=== PATIENT | female | born 1955 | race Caucasian/White ===

== ENCOUNTER 2023-05-18 01:06 | Emergency (ER) | payer MEDICARE, MEDICAID, SELFPAY ==
[2023-05-18 01:07] VITALS: BP 119/39; PULSE 57; RESP 16; TEMP 36.6; O2SAT 99; BMI 37.7
--- NOTE | 2023-05-18 01:13 | ECG_ITS ---
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
--- NOTE | 2023-05-18 01:14 | XR_ITS ---
The [address] [address] Patient Name: CASTILLO GRAHAM MRN: [id number] date: 1955 Sex: F Assigned Patient Location: ER Current Patient Location: ED.MAIN Accession/Order Number: [id number] Exam Date: 05/18/2023 01:22 Report Date: 05/18/2023 01:43 At the request of: KAREN KEY Procedure: XR chest 1V EXAM: XR chest 1V HISTORY: weakness COMPARISON: None. TECHNIQUE: None. FINDINGS: The heart, mediastinum and pulmonary vascularity are within normal limits. There is mild bibasilar atelectasis or less likely early infiltrate. Small left effusion cannot be excluded. The upper lungs are clear. XR/XR chest 1V IMPRESSION: Mild bibasilar atelectasis or less likely infiltrate. Small left effusion cannot be excluded. Lungs appear otherwise clear. Electronically authenticated by: LIDIA RIOS Date: 05/18/2023 01:43
--- NOTE | 2023-05-18 01:20 | ED.WEAKNESS1 ---
HPI - Weakness General Chief complaint: Weakness Stated complaint: general weakness Time Seen by Provider: 05/18/23 01:07 Source: patient Mode of arrival: ambulance History of Present Illness HPI Narrative: Patient is coming to us with chronic history of generalized weakness she mentioned that the weakness is all over her body but not limited to one side and she just feels tired. She had a history of chronic anemia and she was wondering her blood level if it is low or not The patient denies any abdominal pain no chest pain no nausea no vomiting no other concerns but it was noted that the patient was very sleepy and she admitted that she been taking her Percocet and her muscle relaxant at night Tonight the patient was trying to get out of bed and she felt dizzy and that why she was brought to us by the EMS Related Data Home Medications Medication Instructions Recorded Confirmed Unobtainable 05/18/23 05/18/23 Allergies Allergy/AdvReac Type Severity Reaction Status Date / Time aspirin Allergy Unknown Verified 05/18/23 01:40 furosemide [From Lasix] Allergy Unknown Verified 05/18/23 01:40 latex Allergy Unknown Verified 05/18/23 01:40 nabumetone Allergy Unknown Verified 05/18/23 01:40 Penicillins Allergy Unknown Verified 05/18/23 01:40 Sulfa (Sulfonamide Allergy Unknown Verified 05/18/23 01:40 Antibiotics) adhesive Allergy Unknown Uncoded 05/18/23 01:40 Review of Systems ROS Status of ROS 10 or more systems reviewed and unremarkable except as noted in history and below PFSH PFSH Social History Smoking status: Never smoker Exam Narrative Exam Narrative: Nurses notes and vital signs reviewed and patient is not hypoxic. General: Well-appearing and in no apparent distress. Skin: Warm, dry, no pallor noted. No rash. Head: Normocephalic, atraumatic. Neck: Supple, non-tender. Eye: Pupils pinpoint , round and EOMI. No scleral icterus. Ears, Nose, Mouth, and Throat: TM are clear, no nasal mucosal hypertrophy. Oral mucosa is moist, no posterior oropharynx erythema, uvula is mid-line Cardiovascular: Regular Rate and Rhythm without murmur, gallop or rub. Respiratory: No accessory muscle use or respiratory distress. Lungs are clear to auscultation, no wheezing, rales or rhonchi Chest Wall: no tenderness Back: No midline thoracic or lumbar vertebral tenderness. No CVA tenderness Musculoskeletal: normal ROM, no calf or popliteal tenderness, no lower extremity edema/swelling GI: Abdomen is soft, non-distended. Normal bowel sounds. No masses appreciated. No tenderness to palpation. No rebound, guarding, or rigidity noted. Neurological: A&O x4. No cranial nerve dysfunction observed. No truncal ataxia. Moves all extremities. Sensation intact. Psychiatric: Cooperative and very sleepy Normal mood and affect. Constitutional Vital Signs, click to edit/add: Last Vital Signs Temp 97.9 F 05/18/23 01:07 Pulse 57 L 05/18/23 01:07 Resp 16 05/18/23 01:07 BP 119/39 L 05/18/23 01:07 Pulse Ox 99 05/18/23 01:07 O2 Del Method Room Air 05/18/23 01:07 Course Vital Signs Vital signs: Vital Signs Temperature 97.9 F 05/18/23 01:07 Pulse Rate 57 L 05/18/23 01:07 Respiratory Rate 16 05/18/23 01:07 Blood Pressure 119/39 L 05/18/23 01:07 Pulse Oximetry 99 05/18/23 01:07 Oxygen Delivery Method Room Air 05/18/23 01:07 Temperature 97.9 F 05/18/23 01:07 Pulse Rate 57 L 05/18/23 01:07 Respiratory Rate 16 05/18/23 01:07 Blood Pressure 119/39 L 05/18/23 01:07 Pulse Oximetry 99 05/18/23 01:07 Oxygen Delivery Method Room Air 05/18/23 01:07 MDM - Weakness MDM Narrative Medical decision making narrative: The patient EKG shows sinus bradycardia heart rate was [address] elevation or depression there was no heart block The patient CBC shows hemoglobin of 10 CBC and chemistry showed no acute significant pathology there was some chronic kidney injury which the patient seem to have history of it The patient chest x-ray showed no acute significant pathology she was not coming to us with any difficulty breathing coughing or any fever and her presentation today is concerning mostly for drug side effect which is mostly taking her muscle relaxant with her Percocet The patient instructed about making sure that she only take 1 of those medication at night specifically after 5 PM she also was instructed about monitoring her symptoms she is to wear her nasal cannula oxygen at night and also be cautious when standing up The patient is to follow up with primary care physician in next 2-3 days or to return to the emergency department should any of the signs or symptoms worsen or new symptoms develop. The patient agrees with the following Diagnosis and Treatment plan and the patient will be discharged home. Lab Data Labs: Lab Results 05/18/23 Range/Units 01:13 WBC 11.3 H (4.0-11.0) 10^3/uL RBC 3.89 L (4.20-5.40) 10^6/uL Hgb 10.2 L (12.0-16.0) g/dL Hct 32.2 L (36.0-48.0) % MCV 82.8 (81.0-99.0) fL MCH 26.2 L (26.7-34.0) pg MCHC 31.7 (29.9-35.2) g/dL RDW 15.0 (11.0-15.0) % Plt Count 303 (150-450) 10^3/uL MPV 10.2 (9.5-13.5) fL Neut % (Auto) 71.2 (43.0-75.0) % Lymph % (Auto) 14.0 L (20.5-60.0) % Russell % (Auto) 9.1 (1.7-12.0) % Eos % (Auto) 4.1 (0.9-7.0) % Baso % (Auto) 1.2 (0.2-2.0) % Neut # (Auto) 8.0 H (1.4-6.5) 10^3/uL Lymph # (Auto) 1.6 (1.2-3.8) 10^3/uL Russell # (Auto) 1.0 H (0.3-0.8) 10^3/uL Eos # (Auto) 0.5 (0.0-0.7) 10^3/uL Baso # (Auto) 0.1 (0.0-0.1) 10^3/uL Abs Immat Gran (auto) 0.04 H (0.00-0.03) 10^3/uL Imm/Tot Granulo (auto) 0.4 (0.0-0.5) % PT 9.8 (9.0-11.6) sec INR <0.93 Sodium 138 (136-145) mmol/L Potassium 3.8 (3.5-5.1) mmol/L Chloride 103 (98-107) mmol/L Carbon Dioxide 23.9 (21.0-32.0) mmol/L Anion Gap 14.9 BUN 17.0 (7.0-18.0) mg/dL Creatinine 1.29 H (0.55-1.02) mg/dL Est GFR ( Amer) 50 L (>=60) Est GFR (Non-Af Amer) 41 L (>=60) BUN/Creatinine Ratio 13.2 Glucose 150 H (74-106) mg/dL Calcium 8.9 (8.5-10.1) mg/dL Magnesium 2.0 (1.8-2.4) mg/dL Total Bilirubin 0.3 (0.2-1.0) mg/dL AST 15 (15-37) U/L ALT <6 L (14-59) U/L Alkaline Phosphatase 80 (46-116) U/L Troponin I High Sens 10.9 (4.0-51.3) pg/mL Total Protein 7.0 (6.4-8.2) g/dL Albumin 3.1 L (3.4-5.0) g/dL Globulin 3.9 g/dL Albumin/Globulin Ratio 0.8 Discharge Plan Discharge Chief Complaint: Weakness Clinical Impression: Drug side effects Patient Disposition: Home, Self-Care Time of Disposition Decision: 02:04 Condition: Good Prescriptions / Home Meds: No Action Unobtainable Instructions: Narcotic Safety (ED) Stand Alone Forms: Portal Instructions Referrals: PETER ZHOU DO [Primary Care Provider] - 1 week
[2023-05-18 01:21] LABS: Basophils Absolute Auto 0.1 10^3/uL (0.0-0.1); Basophils Percent Auto 1.2 % (0.2-2.0); Eosinophils Absolute Auto 0.5 10^3/uL (0.0-0.7); Eosinophils Percent Auto 4.1 % (0.9-7.0); Hematocrit 32.2 % (36.0-48.0); Hemoglobin 10.2 g/dL (12.0-16.0); Immature Granulocytes Abs Auto 0.04 10^3/uL (0.00-0.03); Immature Granulocytes Pct Auto 0.4 % (0.0-0.5); Lymphocytes Absolute Auto 1.6 10^3/uL (1.2-3.8); Mean Corpuscular HGB Conc 31.7 g/dL (29.9-35.2); Mean Corpuscular Hemoglobin 26.2 pg (26.7-34.0); Mean Corpuscular Volume 82.8 fL (81.0-99.0); Mean Platelet Volume 10.2 fL (9.5-13.5); Monocytes Percent Auto 9.1 % (1.7-12.0); Neutrophils Percent Auto 71.2 % (43.0-75.0); Platelet Count 303 10^3/uL (150-450); Red Blood Count 3.89 10^6/uL (4.20-5.40); White Blood Count 11.3 10^3/uL (4.0-11.0)
[2023-05-18 01:34] LABS: Prothrombin Time 9.8 sec (9.0-11.6)
[2023-05-18 01:35] LABS: INR <0.93
[2023-05-18 01:36] LABS: Alanine Aminotransferase <6 U/L (14-59); Albumin Globulin Ratio 0.8; Albumin Level 3.1 g/dL (3.4-5.0); Alkaline Phosphatase 80 U/L (46-116); Anion Gap 14.9; Aspartate Amino Transferase 15 U/L (15-37); BUN Creatinine Ratio 13.2; Bilirubin Total 0.3 mg/dL (0.2-1.0); Calcium 8.9 mg/dL (8.5-10.1); Carbon Dioxide 23.9 mmol/L (21.0-32.0); Chloride 103 mmol/L (98-107); Estimated GFR (African America 50 (>=60); Estimated GFR (Non-African Ame 41 (>=60); Globulin 3.9 g/dL; Glucose 150 mg/dL (74-106); Potassium 3.8 mmol/L (3.5-5.1); Sodium 138 mmol/L (136-145)
[2023-05-18 01:41] LABS: Troponin I High Sensitivity 10.9 pg/mL (4.0-51.3)
== END 2023-05-18 02:23 | disposition home or self-care (01) ==
PROVIDERS: Emergency Provider Emergency Medicine; PCP Family Medicine
DX: R53.1 Weakness (principal); T50.995A Adverse effect of other drugs, medicaments and biological substances, initial encounter
CPT/HCPCS: 36415; 71045; 80053; 81003; 83735; 84484; 85025; 85610; 93005; 99285

== ENCOUNTER 2023-05-22 17:52 | Emergency (ER) | payer MEDICARE, MEDICAID, SELFPAY ==
[2023-05-22 18:02] VITALS: BP 143/106; PULSE 108; RESP 14; TEMP 36.6; O2SAT 98; BMI 37.7
[2023-05-22 18:13] LABS: Glucometer 131 mg/dL (74-106)
--- NOTE | 2023-05-22 19:35 | ED.EXTPRO1 ---
HPI - Extremity Problem General Chief complaint: Weakness Stated complaint: ALLERGIC REACTION TO MEDS Time Seen by Provider: 05/22/23 19:24 Source: patient Mode of arrival: Wheelchair Limitations: no limitations History of Present Illness HPI Narrative: patient states she was seen by her orthopedic surgeon 03/2023 for infected left knee joint. States knee replacement 10/09. states she had surgery and per her description the knee was cleaned and she was started on IV antibiotics via PIC line. Antibiotics were switched to Cipro 05/07/23. Since she started taking cipro she has noticed loss of appetite, myalgia. Did contact her surgeon and was advised to hold cipro over the weekend but advised her to come to the ER for evaluation. She denies fever or nausea. States whatever she tries to eat or drink does not taste good. She has left knee pain but similar pain to what she has been experiencing and has not worsened. MD Complaint: Reports extremity pain Onset (ago): week(s) Related Data Home Medications Medication Instructions Recorded Confirmed Unobtainable 05/18/23 05/18/23 Allergies Allergy/AdvReac Type Severity Reaction Status Date / Time aspirin Allergy Unknown Verified 05/22/23 18:02 furosemide [From Lasix] Allergy Unknown Verified 05/22/23 18:02 latex Allergy Unknown Verified 05/22/23 18:02 nabumetone Allergy Unknown Verified 05/22/23 18:02 Penicillins Allergy Unknown Verified 05/22/23 18:02 Sulfa (Sulfonamide Allergy Unknown Verified 05/22/23 18:02 Antibiotics) adhesive Allergy Unknown Uncoded 05/22/23 18:02 Review of Systems ROS Status of ROS 10 or more systems reviewed and unremarkable except as noted in history and below PFSH PFS Social History Smoking status: Never smoker Exam Constitutional Vital Signs, click to edit/add: Last Vital Signs Temp 98 F 05/22/23 18:02 Pulse 108 H 05/22/23 18:02 Resp 14 05/22/23 18:02 BP 143/106 H 05/22/23 18:02 Pulse Ox 98 05/22/23 18:02 O2 Del Method Room Air 05/22/23 18:02 Common normals: no apparent distress, oriented x3, healthy appearing, alert and well nourished Eye Common normals: EOMs intact bilaterally, conjunctivae normal and no scleral icterus Chest Common normals: inspection of chest normal, palpation of chest normal and inspection of breasts normal Cardio Common normals: regular rate, regular rhythm, S1 normal heart sound, S2 normal heart sound and no murmurs GI Common normals: Normal to inspection, nondistended, normoactive bowel sounds present, soft to palpation and non-tender Extremity Other: left knee is not warm or erythematous. mild tenderness. Neuro Common normals: oriented x3, CN's II-XII intact bilaterally, moves all extremities and no focal motor deficits Psych Appearance: grossly normal Course Vital Signs Vital signs: Vital Signs Temperature 98 F 05/22/23 18:02 Pulse Rate 108 H 05/22/23 18:02 Respiratory Rate 14 05/22/23 18:02 Blood Pressure 143/106 H 05/22/23 18:02 Pulse Oximetry 98 05/22/23 18:02 Oxygen Delivery Method Room Air 05/22/23 18:02 Temperature 98 F 05/22/23 18:02 Pulse Rate 108 H 05/22/23 18:02 Respiratory Rate 14 05/22/23 18:02 Blood Pressure 143/106 H 05/22/23 18:02 Pulse Oximetry 98 05/22/23 18:02 Oxygen Delivery Method Room Air 05/22/23 18:02 MDM - Extremity (Nontraumatic) MDM Narrative Medical decision making narrative: patient presents with myalgias and loss of appetite since starting cipro. Labs demonstrate dehydration. He was hydrated. Also has elevated inflammatory markers. She is on Cipro for history of infection left knee. Left knee on exam appears normal at this time. No warmth or erythema. Patient advised to d/c cipro for now. She will call her surgeon in 1 day to see what different antibiotic is recommended Lab Data Labs: Lab Results 05/22/23 05/22/23 05/22/23 Range/Units 18:10 20:20 20:22 WBC 8.2 (4.0-11.0) 10^3/uL RBC 4.20 (4.20-5.40) 10^6/uL Hgb 11.2 L (12.0-16.0) g/dL Hct 35.0 L (36.0-48.0) % MCV 83.3 (81.0-99.0) fL MCH 26.7 (26.7-34.0) pg MCHC 32.0 (29.9-35.2) g/dL RDW 15.2 H (11.0-15.0) % Plt Count 308 (150-450) 10^3/uL MPV 9.9 (9.5-13.5) fL Neut % (Auto) 73.2 (43.0-75.0) % Lymph % (Auto) 12.9 L (20.5-60.0) % [place] % (Auto) 8.6 (1.7-12.0) % Eos % (Auto) 3.8 (0.9-7.0) % Baso % (Auto) 1.1 (0.2-2.0) % Neut # (Auto) 6.0 (1.4-6.5) 10^3/uL Lymph # (Auto) 1.1 L (1.2-3.8) 10^3/uL [place] # (Auto) 0.7 (0.3-0.8) 10^3/uL Eos # (Auto) 0.3 (0.0-0.7) 10^3/uL Baso # (Auto) 0.1 (0.0-0.1) 10^3/uL Abs Immat Gran (auto) 0.03 (0.00-0.03) 10^3/uL Imm/Tot Granulo (auto) 0.4 (0.0-0.5) % ESR 76 H (<=30) mm/hr Sodium 139 (136-145) mmol/L Potassium 3.9 (3.5-5.1) mmol/L Chloride 104 (98-107) mmol/L Carbon Dioxide 26.3 (21.0-32.0) mmol/L Anion Gap 12.6 BUN 15.0 (7.0-18.0) mg/dL Creatinine 1.34 H (0.55-1.02) mg/dL Est GFR ( Amer) 48 L (>=60) Est GFR (Non-Af Amer) 39 L (>=60) BUN/Creatinine Ratio 11.2 Glucose 97 (74-106) mg/dL Calcium 8.9 (8.5-10.1) mg/dL Total Bilirubin 0.4 (0.2-1.0) mg/dL AST 18 (15-37) U/L ALT 15 (14-59) U/L Alkaline Phosphatase 84 (46-116) U/L C-Reactive Protein 4.6 H (<=1.0) mg/dL Total Protein 7.6 (6.4-8.2) g/dL Albumin 3.4 (3.4-5.0) g/dL Globulin 4.2 g/dL Albumin/Globulin Ratio 0.8 Urine Color (YELLOW) Urine Clarity (CLEAR) Urine pH (5.0-9.0) Ur Specific [place] (1.005-1.025) Urine Protein (NEG/TRACE) mg/dL Urine Glucose (UA) (NEGATIVE) mg/dL Urine Ketones (NEGATIVE) mg/dL Urine Occult Blood (NEGATIVE) Urine Nitrite (NEGATIVE) Urine Bilirubin (NEGATIVE) Urine Urobilinogen (0.2-1.0) EU/dL Ur Leukocyte Esterase (NEGATIVE) POC Glucose 131 H (74-106) mg/dL 05/22/23 Range/Units 23:59 WBC (4.0-11.0) 10^3/uL RBC (4.20-5.40) 10^6/uL Hgb (12.0-16.0) g/dL Hct (36.0-48.0) % MCV (81.0-99.0) fL MCH (26.7-34.0) pg MCHC (29.9-35.2) g/dL RDW (11.0-15.0) % Plt Count (150-450) 10^3/uL MPV (9.5-13.5) fL Neut % (Auto) (43.0-75.0) % Lymph % (Auto) (20.5-60.0) % [place] % (Auto) (1.7-12.0) % Eos % (Auto) (0.9-7.0) % Baso % (Auto) (0.2-2.0) % Neut # (Auto) (1.4-6.5) 10^3/uL Lymph # (Auto) (1.2-3.8) 10^3/uL [place] # (Auto) (0.3-0.8) 10^3/uL Eos # (Auto) (0.0-0.7) 10^3/uL Baso # (Auto) (0.0-0.1) 10^3/uL Abs Immat Gran (auto) (0.00-0.03) 10^3/uL Imm/Tot Granulo (auto) (0.0-0.5) % ESR (<=30) mm/hr Sodium (136-145) mmol/L Potassium (3.5-5.1) mmol/L Chloride (98-107) mmol/L Carbon Dioxide (21.0-32.0) mmol/L Anion Gap BUN (7.0-18.0) mg/dL Creatinine (0.55-1.02) mg/dL Est GFR ( Amer) (>=60) Est GFR (Non-Af Amer) (>=60) BUN/Creatinine Ratio Glucose (74-106) mg/dL Calcium (8.5-10.1) mg/dL Total Bilirubin (0.2-1.0) mg/dL AST (15-37) U/L ALT (14-59) U/L Alkaline Phosphatase (46-116) U/L C-Reactive Protein (<=1.0) mg/dL Total Protein (6.4-8.2) g/dL Albumin (3.4-5.0) g/dL Globulin g/dL Albumin/Globulin Ratio Urine Color Yellow (YELLOW) Urine Clarity Clear (CLEAR) Urine pH 5.5 (5.0-9.0) Ur Specific [place] 1.025 (1.005-1.025) Urine Protein Negative (NEG/TRACE) mg/dL Urine Glucose (UA) Negative (NEGATIVE) mg/dL Urine Ketones Negative (NEGATIVE) mg/dL Urine Occult Blood Negative (NEGATIVE) Urine Nitrite Negative (NEGATIVE) Urine Bilirubin Negative (NEGATIVE) Urine Urobilinogen 0.2 (0.2-1.0) EU/dL Ur Leukocyte Esterase Negative (NEGATIVE) POC Glucose (74-106) mg/dL Discharge Plan Discharge Chief Complaint: Weakness Clinical Impression: Arthralgia, Adverse drug reaction, Dehydration Patient Disposition: Home, Self-Care Prescriptions / Home Meds: No Action Unobtainable Instructions: Dehydration (ED), Adverse Drug Reaction (ED) Additional Instructions: call your surgeon thursday for a new antibiotic Stand Alone Forms: Portal Instructions Referrals: PETER ZHOU DO [Primary Care Provider] - 1 week
[2023-05-22] MEDS: 0.9 % SODIUM CHLORIDE 1,000 ML 999 ML IV (20:21)
[2023-05-22 20:32] LABS: Basophils Absolute Auto 0.1 10^3/uL (0.0-0.1); Basophils Percent Auto 1.1 % (0.2-2.0); Eosinophils Absolute Auto 0.3 10^3/uL (0.0-0.7); Eosinophils Percent Auto 3.8 % (0.9-7.0); Hemoglobin 11.2 g/dL (12.0-16.0); Immature Granulocytes Abs Auto 0.03 10^3/uL (0.00-0.03); Immature Granulocytes Pct Auto 0.4 % (0.0-0.5); Lymphocytes Absolute Auto 1.1 10^3/uL (1.2-3.8); Lymphocytes Percent Auto 12.9 % (20.5-60.0); Mean Corpuscular Hemoglobin 26.7 pg (26.7-34.0); Mean Corpuscular Volume 83.3 fL (81.0-99.0); Mean Platelet Volume 9.9 fL (9.5-13.5); Monocytes Absolute Auto 0.7 10^3/uL (0.3-0.8); Monocytes Percent Auto 8.6 % (1.7-12.0); Neutrophils Percent Auto 73.2 % (43.0-75.0); Platelet Count 308 10^3/uL (150-450); Red Cell Distribution Width 15.2 % (11.0-15.0); White Blood Count 8.2 10^3/uL (4.0-11.0)
[2023-05-22 20:50] LABS: Alanine Aminotransferase 15 U/L (14-59); Albumin Globulin Ratio 0.8; Albumin Level 3.4 g/dL (3.4-5.0); Alkaline Phosphatase 84 U/L (46-116); Anion Gap 12.6; Aspartate Amino Transferase 18 U/L (15-37); BUN Creatinine Ratio 11.2; Bilirubin Total 0.4 mg/dL (0.2-1.0); C Reactive Protein 4.6 mg/dL (<=1.0); Calcium 8.9 mg/dL (8.5-10.1); Carbon Dioxide 26.3 mmol/L (21.0-32.0); Chloride 104 mmol/L (98-107); Estimated GFR (African America 48 (>=60); Estimated GFR (Non-African Ame 39 (>=60); Globulin 4.2 g/dL; Glucose 97 mg/dL (74-106); Potassium 3.9 mmol/L (3.5-5.1); Sodium 139 mmol/L (136-145); Total Protein 7.6 g/dL (6.4-8.2)
[2023-05-22 20:55] LABS: Erythrocyte Sedimentation Rate 76 mm/hr (<=30)
[2023-05-22] MEDS: MORPHINE SULFATE 4 MG/ML VIAL IV (22:26)
[2023-05-23 00:44] LABS: Bilirubin Urine NEGATIVE (NEGATIVE); Blood Urine NEGATIVE (NEGATIVE); Clarity Urine CLEAR (CLEAR); Color Urine YELLOW (YELLOW); Glucose Urine UA NEGATIVE (NEGATIVE); Ketones Urine NEGATIVE (NEGATIVE); Leukocyte Esterase Urine NEGATIVE (NEGATIVE); Nitrite Urine NEGATIVE (NEGATIVE); Protein Urine NEGATIVE (NEG/TRACE); Specific Gravity Urine 1.025 (1.005-1.025); Urine Microscopic Indicated NO; Urobilinogen Urine 0.2 EU/dL (0.2-1.0); pH Urine 5.5 (5.0-9.0)
== END 2023-05-23 01:33 | disposition home or self-care (01) ==
PROVIDERS: Emergency Medicine; Emergency Provider Internal Medicine; PCP Family Medicine
DX: E86.0 Dehydration (principal); M25.562 Pain in left knee; T36.8X5A Adverse effect of other systemic antibiotics, initial encounter; Z96.652 Presence of left artificial knee joint
CPT/HCPCS: 36415; 36416; 80053; 81003; 82948; 85025; 85652; 86140; 96361; 96374; 99284

== ENCOUNTER 2023-06-01 13:30 | Emergency (ER) | payer MEDICARE, MEDICAID, SELFPAY ==
[2023-06-01 13:40] VITALS: BP 130/95; PULSE 82; RESP 16; TEMP 36.8; O2SAT 99; BMI 36.8
--- NOTE | 2023-06-01 13:55 | ED_ITS ---
Documented by User: Bessiedoug Walteron 06/01/23 16:51 HPI - General Adult General Chief complaint: Extremity Injury, Lower Stated complaint: LOWER EXTREMITY PAIN RIGHT LEG Time Seen by Provider: 06/01/23 13:43 Source: patient Mode of arrival: Wheelchair Limitations: physical limitation History of Present Illness HPI narrative: 67 year old female presents to the ED with concern of a DVT to her right leg. She noticed an erythematous streak and discomfort to the right upper medial leg over the past few days. Also reports diarrhea, fatigue, decreased appetite s/p being started on Cipro last week for an infection to her left knee. Denies fever, chills, abd pain, urinary sx. Denies SOB, dizziness, CP. Rates her pain 2/10 at this time. She did call her surgeon today and was given a prescription for Cefdinir to replace the Cipro. Reports her loose stools started after she began taking a probiotic. Related Data Home Medications Medication Instructions Recorded Confirmed Unobtainable 05/18/23 05/18/23 Allergies Allergy/AdvReac Type Severity Reaction Status Date / Time aspirin Allergy Unknown Verified 06/01/23 13:46 furosemide [From Lasix] Allergy Unknown Verified 06/01/23 13:46 latex Allergy Unknown Verified 06/01/23 13:46 nabumetone Allergy Unknown Verified 06/01/23 13:46 Penicillins Allergy Unknown Verified 06/01/23 13:46 Sulfa (Sulfonamide Allergy Unknown Verified 06/01/23 13:46 Antibiotics) adhesive Allergy Unknown Uncoded 06/01/23 13:46 Review of Systems ROS Constitutional Denies: fever or chills Cardiovascular Denies: chest pain or palpitations Respiratory Denies: shortness of breath Gastrointestinal Reports: diarrhea; Denies: abdominal pain, nausea or vomiting Genitourinary Denies: painful urination, urinary frequency or urinary urgency Musculoskeletal Reports: extremity pain Integumentary/Breast Reports: redness; Denies: rash Neurological Denies: headache or dizziness PFSH PFSH Social History Smoking status: Never smoker Exam Constitutional Vital Signs, click to edit/add: Last Vital Signs Temp 98.3 F 06/01/23 13:40 Pulse 82 06/01/23 13:40 Resp 16 06/01/23 13:40 BP 130/95 H 06/01/23 13:40 Pulse Ox 99 06/01/23 13:40 O2 Del Method Room Air 06/01/23 13:40 HENMT Mouth: lip normal Chest Chest: symmetrical chest wall rise Respiratory Common normals: normal respiratory effort Effort & inspection: able to speak in complete sentences and symmetric chest movement Cardio Peripheral pulses: posterior tibial pulses present and dorsalis pedis pulses present GI Common normals: soft to palpation and non-tender Inspection: normal to inspection Extremity Right lower extremity: upper leg Right upper leg: inspection (Area of erythema to right medial upper leg. Area is tender. ) and other (No open wound or drainage to area. Varicose veins noted.) Neuro Common normals: oriented x3 Sensorium/orientation: awake and alert Course Vital Signs Vital signs: Vital Signs Temperature 98.3 F 06/01/23 13:40 Pulse Rate 82 06/01/23 13:40 Respiratory Rate 16 06/01/23 13:40 Blood Pressure 130/95 H 06/01/23 13:40 Pulse Oximetry 99 06/01/23 13:40 Oxygen Delivery Method Room Air 06/01/23 13:40 Temperature 98.3 F 06/01/23 13:40 Pulse Rate 82 06/01/23 13:40 Respiratory Rate 16 06/01/23 13:40 Blood Pressure 130/95 H 06/01/23 13:40 Pulse Oximetry 99 06/01/23 13:40 Oxygen Delivery Method Room Air 06/01/23 13:40 Medical Decision Making MDM Narrative Medical decision making narrative: Venous Doppler of the RLE was negative for DVT. Her creatinine improved from the previous visit. WBC count and BUN were not elevated. She was unable to provide a stool specimen here in the ED. She was encouraged to follow up with her pcp for a recheck, further evaluation and treatment. Return precautions were discussed. Medical Records Medical records reviewed: Yes I reviewed the patient's medical records Lab Data Lab results reviewed: Yes I reviewed the patient's lab results Labs: Lab Results 06/01/23 06/01/23 Range/Units 14:00 15:45 WBC 9.7 (4.0-11.0) 10^3/uL RBC 4.48 (4.20-5.40) 10^6/uL Hgb 11.6 L (12.0-16.0) g/dL Hct 37.4 (36.0-48.0) % MCV 83.5 (81.0-99.0) fL MCH 25.9 L (26.7-34.0) pg MCHC 31.0 (29.9-35.2) g/dL RDW 14.9 (11.0-15.0) % Plt Count 343 (150-450) 10^3/uL MPV 10.3 (9.5-13.5) fL Neut % (Auto) 67.1 (43.0-75.0) % Lymph % (Auto) 18.0 L (20.5-60.0) % [place] % (Auto) 9.6 (1.7-12.0) % Eos % (Auto) 3.5 (0.9-7.0) % Baso % (Auto) 1.3 (0.2-2.0) % Neut # (Auto) 6.5 (1.4-6.5) 10^3/uL Lymph # (Auto) 1.8 (1.2-3.8) 10^3/uL [place] # (Auto) 0.9 H (0.3-0.8) 10^3/uL Eos # (Auto) 0.3 (0.0-0.7) 10^3/uL Baso # (Auto) 0.1 (0.0-0.1) 10^3/uL Abs Immat Gran (auto) 0.05 H (0.00-0.03) 10^3/uL Imm/Tot Granulo (auto) 0.5 (0.0-0.5) % Sodium 137 (136-145) mmol/L Potassium 3.5 (3.5-5.1) mmol/L Chloride 101 (98-107) mmol/L Carbon Dioxide 25.1 (21.0-32.0) mmol/L Anion Gap 14.4 BUN 15.0 (7.0-18.0) mg/dL Creatinine 1.14 H (0.55-1.02) mg/dL Est GFR ( Amer) 58 L (>=60) Est GFR (Non-Af Amer) 48 L (>=60) BUN/Creatinine Ratio 13.2 Glucose 99 (74-106) mg/dL Calcium 8.9 (8.5-10.1) mg/dL SARS-CoV-2 (PCR) Negative (NEGATIVE) Imaging Data Venous US: Attestation: I have reviewed the pertinent imaging results. Radiologist's impression: Procedure: US venous doppler LE RT Right EXAM: US venous doppler LE RT HISTORY: Right leg swelling, discomfort COMPARISON: None. TECHNIQUE: Evaluation of the deep veins of the right lower extremity was performed utilizing B-mode, color flow and spectral analysis. FINDINGS: The visualized vessels comprising the deep venous systems from the common femoral vein through the calf veins demonstrate appropriate compressibility, spontaneous color Doppler flow, and augmentation of flow on spectral Doppler with distal compression. Additional findings: None. US/US venous doppler LE RT IMPRESSION: No sonographic evidence of deep venous thrombosis of the right lower extremity. Electronically authenticated by: MOISES REAL Date: 06/01/2023 14:50 Discharge Plan Discharge Chief Complaint: Extremity Injury, Lower Clinical Impression: Drug side effects, Diarrhea, Leg pain, right Patient Disposition: Home, Self-Care Time of Disposition Decision: 16:41 Condition: Good Mode of Transportation: Private Vehicle Prescriptions / Home Meds: No Action Unobtainable Instructions: Acute Diarrhea (ED), Adverse Drug Reaction (ED), Leg Pain (ED) Stand Alone Forms: Portal Instructions Referrals: PETER ZHOU DO [Primary Care Provider] - 1 week Discharge Date/Time: 06/01/23 16:47 Documented by User: Simona Arana MD 06/01/23 18:48 HPI - General Adult General Chief complaint: Extremity Injury, Lower Stated complaint: LOWER EXTREMITY PAIN RIGHT LEG Time Seen by Provider: 06/01/23 13:43 Related Data Home Medications Medication Instructions Recorded Confirmed Unobtainable 05/18/23 05/18/23 Allergies Allergy/AdvReac Type Severity Reaction Status Date / Time aspirin Allergy Unknown Verified 06/01/23 13:46 furosemide [From Lasix] Allergy Unknown Verified 06/01/23 13:46 latex Allergy Unknown Verified 06/01/23 13:46 nabumetone Allergy Unknown Verified 06/01/23 13:46 Penicillins Allergy Unknown Verified 06/01/23 13:46 Sulfa (Sulfonamide Allergy Unknown Verified 06/01/23 13:46 Antibiotics) adhesive Allergy Unknown Uncoded 06/01/23 13:46 PFSH PFSH Social History Smoking status: Never smoker Exam Constitutional Vital Signs, click to edit/add: Last Vital Signs Temp 98.3 F 06/01/23 13:40 Pulse 82 06/01/23 13:40 Resp 16 06/01/23 13:40 BP 130/95 H 06/01/23 13:40 Pulse Ox 99 06/01/23 13:40 O2 Del Method Room Air 06/01/23 13:40 Course Vital Signs Vital signs: Vital Signs Temperature 98.3 F 06/01/23 13:40 Pulse Rate 82 06/01/23 13:40 Respiratory Rate 16 06/01/23 13:40 Blood Pressure 130/95 H 06/01/23 13:40 Pulse Oximetry 99 06/01/23 13:40 Oxygen Delivery Method Room Air 06/01/23 13:40 Temperature 98.3 F 06/01/23 13:40 Pulse Rate 82 06/01/23 13:40 Respiratory Rate 16 06/01/23 13:40 Blood Pressure 130/95 H 06/01/23 13:40 Pulse Oximetry 99 06/01/23 13:40 Oxygen Delivery Method Room Air 06/01/23 13:40 Medical Decision Making MDM Narrative Medical decision making narrative: Venous Doppler of the RLE was negative for DVT. Her creatinine improved from the previous visit. WBC count and BUN were not elevated. She was unable to provide a stool specimen here in the ED. She was encouraged to follow up with her pcp for a recheck, further evaluation and treatment. Return precautions were discussed. Attending physician attestation I have reviewed the mid-level documentation, agree with the documentation, medical decision making and treatment plan as outlined by the mid-level provider. Lab Data Labs: Lab Results 06/01/23 06/01/23 Range/Units 14:00 15:45 WBC 9.7 (4.0-11.0) 10^3/uL RBC 4.48 (4.20-5.40) 10^6/uL Hgb 11.6 L (12.0-16.0) g/dL Hct 37.4 (36.0-48.0) % MCV 83.5 (81.0-99.0) fL MCH 25.9 L (26.7-34.0) pg MCHC 31.0 (29.9-35.2) g/dL RDW 14.9 (11.0-15.0) % Plt Count 343 (150-450) 10^3/uL MPV 10.3 (9.5-13.5) fL Neut % (Auto) 67.1 (43.0-75.0) % Lymph % (Auto) 18.0 L (20.5-60.0) % [place] % (Auto) 9.6 (1.7-12.0) % Eos % (Auto) 3.5 (0.9-7.0) % Baso % (Auto) 1.3 (0.2-2.0) % Neut # (Auto) 6.5 (1.4-6.5) 10^3/uL Lymph # (Auto) 1.8 (1.2-3.8) 10^3/uL [place] # (Auto) 0.9 H (0.3-0.8) 10^3/uL Eos # (Auto) 0.3 (0.0-0.7) 10^3/uL Baso # (Auto) 0.1 (0.0-0.1) 10^3/uL Abs Immat Gran (auto) 0.05 H (0.00-0.03) 10^3/uL Imm/Tot Granulo (auto) 0.5 (0.0-0.5) % Sodium 137 (136-145) mmol/L Potassium 3.5 (3.5-5.1) mmol/L Chloride 101 (98-107) mmol/L Carbon Dioxide 25.1 (21.0-32.0) mmol/L Anion Gap 14.4 BUN 15.0 (7.0-18.0) mg/dL Creatinine 1.14 H (0.55-1.02) mg/dL Est GFR ( Amer) 58 L (>=60) Est GFR (Non-Af Amer) 48 L (>=60) BUN/Creatinine Ratio 13.2 Glucose 99 (74-106) mg/dL Calcium 8.9 (8.5-10.1) mg/dL SARS-CoV-2 (PCR) Negative (NEGATIVE) Discharge Plan Discharge Chief Complaint: Extremity Injury, Lower Clinical Impression: Drug side effects, Diarrhea, Leg pain, right Patient Disposition: Home, Self-Care Time of Disposition Decision: 16:41 Condition: Good Mode of Transportation: Private Vehicle Prescriptions / Home Meds: No Action Unobtainable Instructions: Acute Diarrhea (ED), Adverse Drug Reaction (ED), Leg Pain (ED) Stand Alone Forms: Portal Instructions Referrals: PETER ZHOU DO [Primary Care Provider] - 1 week Discharge Date/Time: 06/01/23 16:47
--- NOTE | 2023-06-01 14:00 | US_ITS ---
The [address] [address] Patient Name: CASTILLO GRAHAM MRN: [id number] date: 1955 Sex: F Assigned Patient Location: ED.MAIN Current Patient Location: ER Accession/Order Number: [id number] Exam Date: 06/01/2023 14:05 Report Date: 06/01/2023 14:50 At the request of: ALAN PINEDA Procedure: US venous doppler LE RT Right EXAM: US venous doppler LE RT HISTORY: Right leg swelling, discomfort COMPARISON: None. TECHNIQUE: Evaluation of the deep veins of the right lower extremity was performed utilizing B-mode, color flow and spectral analysis. FINDINGS: The visualized vessels comprising the deep venous systems from the common femoral vein through the calf veins demonstrate appropriate compressibility, spontaneous color Doppler flow, and augmentation of flow on spectral Doppler with distal compression. Additional findings: None. US/US venous doppler LE RT IMPRESSION: No sonographic evidence of deep venous thrombosis of the right lower extremity. Electronically authenticated by: MOISES REAL Date: 06/01/2023 14:50
[2023-06-01 14:16] LABS: Anion Gap 14.4; BUN Creatinine Ratio 13.2; Calcium 8.9 mg/dL (8.5-10.1); Carbon Dioxide 25.1 mmol/L (21.0-32.0); Chloride 101 mmol/L (98-107); Estimated GFR (African America 58 (>=60); Estimated GFR (Non-African Ame 48 (>=60); Glucose 99 mg/dL (74-106); Potassium 3.5 mmol/L (3.5-5.1); Sodium 137 mmol/L (136-145)
[2023-06-01 14:27] LABS: Basophils Absolute Auto 0.1 10^3/uL (0.0-0.1); Basophils Percent Auto 1.3 % (0.2-2.0); Eosinophils Absolute Auto 0.3 10^3/uL (0.0-0.7); Eosinophils Percent Auto 3.5 % (0.9-7.0); Hematocrit 37.4 % (36.0-48.0); Hemoglobin 11.6 g/dL (12.0-16.0); Immature Granulocytes Abs Auto 0.05 10^3/uL (0.00-0.03); Immature Granulocytes Pct Auto 0.5 % (0.0-0.5); Lymphocytes Absolute Auto 1.8 10^3/uL (1.2-3.8); Mean Corpuscular Hemoglobin 25.9 pg (26.7-34.0); Mean Corpuscular Volume 83.5 fL (81.0-99.0); Mean Platelet Volume 10.3 fL (9.5-13.5); Monocytes Absolute Auto 0.9 10^3/uL (0.3-0.8); Monocytes Percent Auto 9.6 % (1.7-12.0); Neutrophils Absolute Auto 6.5 10^3/uL (1.4-6.5); Neutrophils Percent Auto 67.1 % (43.0-75.0); Platelet Count 343 10^3/uL (150-450); Red Blood Count 4.48 10^6/uL (4.20-5.40); Red Cell Distribution Width 14.9 % (11.0-15.0); White Blood Count 9.7 10^3/uL (4.0-11.0)
[2023-06-01 16:31] LABS: SARS-CoV-2 Ag NEGATIVE (NEGATIVE)
[2023-06-02 15:16] LABS: SARS-CoV-2 NAA NOT DETECTED (NOT DETECTE)
== END 2023-06-01 16:47 | disposition home or self-care (01) ==
PROVIDERS: Nurse Practitioner Family; Emergency Provider Emergency Medicine; PCP Family Medicine
DX: M79.604 Pain in right leg (principal); R19.7 Diarrhea, unspecified; T36.8X5A Adverse effect of other systemic antibiotics, initial encounter; Z20.822 Contact with and (suspected) exposure to COVID-19
CPT/HCPCS: 36415; 80048; 85025; 87493; 87507; 87635; 87811; 93971; 99284

== ENCOUNTER 2023-07-08 09:15 | Outpatient (OUT) | payer MEDICARE, MEDICAID, SELFPAY ==
[2023-07-08 09:41] LABS: Basophils Absolute Auto 0.1 10^3/uL (0.0-0.1); Basophils Percent Auto 1.4 % (0.2-2.0); Eosinophils Absolute Auto 0.2 10^3/uL (0.0-0.7); Eosinophils Percent Auto 3.2 % (0.9-7.0); Hematocrit 35.8 % (36.0-48.0); Hemoglobin 10.6 g/dL (12.0-16.0); Immature Granulocytes Abs Auto 0.02 10^3/uL (0.00-0.03); Immature Granulocytes Pct Auto 0.3 % (0.0-0.5); Lymphocytes Absolute Auto 1.7 10^3/uL (1.2-3.8); Lymphocytes Percent Auto 24.4 % (20.5-60.0); Mean Corpuscular HGB Conc 29.6 g/dL (29.9-35.2); Mean Corpuscular Hemoglobin 25.9 pg (26.7-34.0); Mean Corpuscular Volume 87.3 fL (81.0-99.0); Mean Platelet Volume 10.3 fL (9.5-13.5); Monocytes Absolute Auto 0.6 10^3/uL (0.3-0.8); Monocytes Percent Auto 8.7 % (1.7-12.0); Neutrophils Absolute Auto 4.3 10^3/uL (1.4-6.5); Platelet Count 339 10^3/uL (150-450); Red Cell Distribution Width 15.9 % (11.0-15.0)
[2023-07-08 09:57] LABS: Albumin Level 3.1 g/dL (3.4-5.0); Anion Gap 10.1; BUN Creatinine Ratio 12.5; C Reactive Protein 2.7 mg/dL (<=1.0); Carbon Dioxide 29.1 mmol/L (21.0-32.0); Chloride 103 mmol/L (98-107); Estimated GFR (African America >60 (>=60); Estimated GFR (Non-African Ame >60 (>=60); Glucose 97 mg/dL (74-106); Phosphorus 3.7 mg/dL (2.6-4.7); Potassium 3.2 mmol/L (3.5-5.1); Sodium 139 mmol/L (136-145)
[2023-07-08 10:05] LABS: Erythrocyte Sedimentation Rate 36 mm/hr (<=30)
== END 2023-07-08 09:16 | disposition home or self-care (01) ==
LOC: LAB 09:15
PROVIDERS: PCP Family Medicine
DX: T84.59XD Infection and inflammatory reaction due to other internal joint prosthesis, subsequent encounter (principal)
CPT/HCPCS: 36415; 80069; 85025; 85652; 86140

== ENCOUNTER 2023-07-09 13:51 | Outpatient (RCR) | payer MEDICARE, MEDICAID, SELFPAY | END 2023-10-18 09:00 | disposition home or self-care (01) | LOC: PT 13:51 | PROVIDERS: PCP Family Medicine | DX: M17.12 Unilateral primary osteoarthritis, left knee (principal); Z96.652 Presence of left artificial knee joint | CPT/HCPCS: 97110; 97112; 97140; 97163; 97530 ==

== ENCOUNTER 2023-09-09 13:07 | Outpatient (OUT) | payer MEDICARE, MEDICAID, SELFPAY ==
--- NOTE | 2023-09-09 13:22 | XR_ITS ---
[address] [address] Patient Name: CASTILLO GRAHAM MRN: [id number] date: 1955 Sex: F Assigned Patient Location: [facility] Current Patient Location: Accession/Order Number: [id number] Exam Date: 09/09/2023 13:58 Report Date: 09/10/2023 02:50 At the request of: PETER ZHOU Procedure: XR DEXA axial skeleton EXAMINATION: XR DEXA axial skeleton HISTORY: Menopause Z78.0 COMPARISON: DEXA bone densitometry 07/09/2020 TECHNIQUE: Dual-energy X-ray absorptiometry (DXA) was performed. FINDINGS: SPINE ANALYSIS: Average bone mineral density is 1.138 g/cm2. T-score (standard deviation relative to young adult mean): 0.5 . +1.8% change since prior study. HIP ANALYSIS: Lowest bone mineral density is within the right femoral trochanter, 0.691 g/cm2. T-score (standard deviation relative to young adult mean): -1.4 . -15.1% change since prior study. XR/XR DEXA axial skeleton IMPRESSION: [employer] Classification: Osteopenia - Moderate Fracture Risk Electronically authenticated by: NELIA TIJERINA Date: 09/10/2023 02:50
--- NOTE | 2023-09-09 13:22 | MM_ITS ---
Patient Name: CASTILLO GRAHAM MR#: [id number] : 1955 Exam Date: 09/09/2023 Ordering Doctor: DR PETER ZHOU D.O. RADIOLOGY REPORT PROCEDURE: MM TOMOSYNTHESIS SCREENING BI COMPARISON: MG MAMM SCREEN NYLA W CAD, 07/09/2020. MG MAMM SCREEN NYLA W CAD, 06/17/2019. MG MAMM SCREEN NYLA W CAD, 06/15/2018. INDICATIONS: Screening Calculator Name NCI Breast Cancer Risk Assessment Tool 5 Year Breast Cancer Risk 1.90% Lifetime Breast Cancer Risk 6.20% Personal Breast Cancer No Personal Ovarian Cancer No Treatments None Family Cancers None LOCATION: [facility] BREAST COMPOSITION: Almost entirely fatty. FINDINGS: DIAGNOSTIC CATEGORY 1--NEGATIVE. RIGHT BREAST: No significant suspicious finding. No significant change has occurred. LEFT BREAST: No significant suspicious finding. No significant change has occurred. RECOMMENDATIONS: ROUTINE MAMMOGRAM AND CLINICAL EVALUATION IN 12 MONTHS. PLEASE NOTE: A NORMAL MAMMOGRAM DOES NOT EXCLUDE THE POSSIBILITY OF BREAST CANCER. A CLINICALLY SUSPICIOUS PALPABLE LUMP SHOULD BE BIOPSIED. Dictated by: Don Esquivel M.D. on 09/15/2023 at 12:56 Approved by: Don Esquivel M.D. on 09/15/2023 at 12:58
== END 2023-09-09 13:08 | disposition home or self-care (01) ==
LOC: RAD 13:09
PROVIDERS: PCP Family Medicine; Visit Provider Family Medicine
DX: Z12.31 Encounter for screening mammogram for malignant neoplasm of breast (principal); Z78.0 Asymptomatic menopausal state; M85.80 Other specified disorders of bone density and structure, unspecified site
CPT/HCPCS: 77063; 77067; 77080

== ENCOUNTER 2023-09-16 14:15 | Outpatient (OUT) | payer MEDICARE, MEDICAID, SELFPAY ==
[2023-09-16 14:44] LABS: Hematocrit 37.4 % (36.0-48.0); Hemoglobin 11.6 g/dL (12.0-16.0); Mean Corpuscular Hemoglobin 26.8 pg (26.7-34.0); Mean Corpuscular Volume 86.4 fL (81.0-99.0); Mean Platelet Volume 9.8 fL (9.5-13.5); Platelet Count 306 10^3/uL (150-450); Red Blood Count 4.33 10^6/uL (4.20-5.40); Red Cell Distribution Width 14.8 % (11.0-15.0); White Blood Count 7.9 10^3/uL (4.0-11.0)
[2023-09-16 14:58] LABS: Bilirubin Urine NEGATIVE (NEGATIVE); Blood Urine NEGATIVE (NEGATIVE); Clarity Urine CLEAR (CLEAR); Color Urine YELLOW (YELLOW); Glucose Urine UA NEGATIVE (NEGATIVE); Ketones Urine NEGATIVE (NEGATIVE); Leukocyte Esterase Urine NEGATIVE (NEGATIVE); Nitrite Urine NEGATIVE (NEGATIVE); Protein Urine NEGATIVE (NEG/TRACE); Specific Gravity Urine 1.015 (1.005-1.025); Urobilinogen Urine 0.2 EU/dL (0.2-1.0)
[2023-09-16 15:02] LABS: Alanine Aminotransferase 13 U/L (14-59); Albumin Globulin Ratio 0.9; Albumin Level 3.3 g/dL (3.4-5.0); Alkaline Phosphatase 83 U/L (46-116); Anion Gap 11.8; Aspartate Amino Transferase 16 U/L (15-37); BUN Creatinine Ratio 19.7; Bilirubin Total 0.3 mg/dL (0.2-1.0); Calcium 8.8 mg/dL (8.5-10.1); Chloride 102 mmol/L (98-107); Estimated GFR (African America 56 (>=60); Estimated GFR (Non-African Ame 46 (>=60); Globulin 3.8 g/dL; Glucose 103 mg/dL (74-106); Magnesium 2.3 mg/dL (1.8-2.4); Phosphorus 4.3 mg/dL (2.6-4.7); Potassium 3.8 mmol/L (3.5-5.1); Sodium 141 mmol/L (136-145); Total Protein 7.1 g/dL (6.4-8.2); Uric Acid 4.2 mg/dL (2.6-6.0)
[2023-09-16 15:18] LABS: Creatinine Urine Random 61.94 mg/dL (20.00-300.00); Protein Creatinine Ratio Urine 0.16; Total Protein Urine Random 9.7 mg/dL (<=11.9)
[2023-09-17 12:08] LABS: PTH, Intact 118 pg/mL (15-65)
== END 2023-09-16 14:16 | disposition home or self-care (01) ==
LOC: LAB 14:17
PROVIDERS: PCP Family Medicine; Visit Provider Internal Medicine Nephrology
DX: I12.9 Hypertensive chronic kidney disease with stage 1 through stage 4 chronic kidney disease, or unspecified chronic kidney disease (principal); N18.31 Chronic kidney disease, stage 3a; N25.81 Secondary hyperparathyroidism of renal origin; D64.9 Anemia, unspecified; R60.0 Localized edema; Z68.42 Body mass index [BMI] 45.0-49.9, adult; E79.0 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 inflammatory arthritis and tophaceous disease
CPT/HCPCS: 36415; 80053; 81003; 82306; 82570; 83735; 83970; 84100; 84156; 84550; 85027

== ENCOUNTER 2023-09-23 10:03 | Outpatient (OUT) | payer MEDICARE, MEDICAID, SELFPAY ==
[2023-09-23 10:51] LABS: Microalbum Creatinine Ratio Ur 8.1 mg/g (0.0-29.9); Microalbumin Urine Random <1.3 mg/dL (<=30.0)
[2023-09-23 11:12] LABS: Alanine Aminotransferase 15 U/L (14-59); Albumin Globulin Ratio 0.8; Albumin Level 3.2 g/dL (3.4-5.0); Alkaline Phosphatase 71 U/L (46-116); Anion Gap 10.1; Aspartate Amino Transferase 12 U/L (15-37); BUN Creatinine Ratio 21.9; Bilirubin Total 0.5 mg/dL (0.2-1.0); Calcium 8.6 mg/dL (8.5-10.1); Carbon Dioxide 31.4 mmol/L (21.0-32.0); Chloride 104 mmol/L (98-107); Chol HDL Ratio 3.2; Cholesterol 206 mg/dL (<=200); Estimated GFR (African America 57 (>=60); Estimated GFR (Non-African Ame 47 (>=60); Free T3 2.99 pg/mL (2.18-3.98); Glucose 96 mg/dL (74-106); HDL Cholesterol 65 mg/dL (40-60); Potassium 3.5 mmol/L (3.5-5.1); Sodium 142 mmol/L (136-145); Thyroid Stimulating Hormone 1.161 uIU/mL (0.358-3.740); Total Protein 7.2 g/dL (6.4-8.2); Triglycerides 96 mg/dL (<=150); Uric Acid 4.9 mg/dL (2.6-6.0); VLDL CHOLESTEROL 19.2 mg/dL
[2023-09-23 12:07] LABS: Free T4 0.98 ng/dL (0.76-1.46)
== END 2023-09-23 10:04 | disposition home or self-care (01) ==
LOC: LAB 10:04
PROVIDERS: PCP Family Medicine; Visit Provider Family Medicine
DX: E11.22 Type 2 diabetes mellitus with diabetic chronic kidney disease (principal); N18.9 Chronic kidney disease, unspecified; I10 Essential (primary) hypertension; M1A.00X0 Idiopathic chronic gout, unspecified site, without tophus (tophi); E55.9 Vitamin D deficiency, unspecified; R53.82 Chronic fatigue, unspecified; T84.59XD Infection and inflammatory reaction due to other internal joint prosthesis, subsequent encounter
CPT/HCPCS: 36415; 80053; 80061; 82043; 82306; 82570; 82607; 82746; 84100; 84439; 84443; 84481; 84550; 85025; 85652; 86140

== ENCOUNTER 2023-09-23 10:05 | Outpatient (OUT) | payer MEDICARE, MEDICAID, SELFPAY ==
[2023-09-23 10:38] LABS: Erythrocyte Sedimentation Rate 32 mm/hr (<=30)
[2023-09-23 10:40] LABS: Basophils Absolute Auto 0.1 10^3/uL (0.0-0.1); Basophils Percent Auto 1.1 % (0.2-2.0); Eosinophils Absolute Auto 0.7 10^3/uL (0.0-0.7); Eosinophils Percent Auto 9.7 % (0.9-7.0); Hematocrit 36.1 % (36.0-48.0); Hemoglobin 11.1 g/dL (12.0-16.0); Immature Granulocytes Abs Auto 0.01 10^3/uL (0.00-0.03); Immature Granulocytes Pct Auto 0.1 % (0.0-0.5); Lymphocytes Absolute Auto 1.5 10^3/uL (1.2-3.8); Lymphocytes Percent Auto 21.7 % (20.5-60.0); Mean Corpuscular HGB Conc 30.7 g/dL (29.9-35.2); Mean Corpuscular Hemoglobin 26.5 pg (26.7-34.0); Mean Corpuscular Volume 86.2 fL (81.0-99.0); Mean Platelet Volume 9.6 fL (9.5-13.5); Monocytes Absolute Auto 0.5 10^3/uL (0.3-0.8); Monocytes Percent Auto 7.3 % (1.7-12.0); Neutrophils Absolute Auto 4.2 10^3/uL (1.4-6.5); Neutrophils Percent Auto 60.1 % (43.0-75.0); Platelet Count 270 10^3/uL (150-450); Red Blood Count 4.19 10^6/uL (4.20-5.40); Red Cell Distribution Width 15.2 % (11.0-15.0)
[2023-09-23 11:02] LABS: Phosphorus 4.2 mg/dL (2.6-4.7)
[2023-09-23 11:08] LABS: C Reactive Protein 1.25 mg/dL (<=0.30)
== END 2023-09-23 10:06 | disposition home or self-care (01) ==
PROVIDERS: PCP Family Medicine
DX: T84.59XD Infection and inflammatory reaction due to other internal joint prosthesis, subsequent encounter (principal)
CPT/HCPCS: 36415; 84100; 85025; 85652; 86140

== ENCOUNTER 2023-10-19 09:19 | Outpatient (RCR) | payer MEDICARE, MEDICAID, SELFPAY | END 2023-10-23 16:02 | disposition home or self-care (01) | LOC: PT 09:19 | PROVIDERS: PCP Family Medicine | DX: Z96.652 Presence of left artificial knee joint (principal); M17.12 Unilateral primary osteoarthritis, left knee | CPT/HCPCS: 97110; 97530 ==

== ENCOUNTER 2023-12-15 08:19 | Outpatient (OUT) | payer MEDICARE, MEDICAID, SELFPAY ==
--- NOTE | 2023-12-15 08:05 | NM_ITS ---
Patient Name: CASTILLO GRAHAM MR#: [id number] : 1955 Exam Date: 12/15/2023 Ordering Doctor: DR PETER ZHOU D.O. RADIOLOGY REPORT PROCEDURE: NM VILMA PERF SPECT REST STR COMPARISON: None. INDICATIONS: CHEST PAIN TECHNIQUE: Exam Description: Stress/Rest one day protocol gated SPECT Rest Imagin.3 mCi Tc-99m Cardiolite IV on 12/15/2023 Stress Imaging 29.4 mCi Tc-99m Cardiolite IV on 12/15/2023 Exercise Protocol: 0.4 mg Lexiscan given IV Heart Rate (bpm): Rest: 61 Max: 81 PMHR: 53 Blood Pressure: Rest: 128/76 Max: 134/70 Symptoms: Rest and peak stress ECG findings were non-diagnostic and the exercise portion of the study was Non-diagnostic per attending physician Dr. Rojas due to left bundle branch block with mild ST downsloping in inferior leads at baseline. For more details please see separate cardiac stress test report. FINDINGS: QUALITY OF STUDY: Good. PERFUSION DEFECT: LOCATION: Apical anterior. [place]. SIZE: Small (1-2 segments). SEVERITY: Moderate. TYPE: Persistent. WALL MOTION: Normal. LV SIZE: Normal. 115 mL. TID / TCD: None; 1.0 LVEF: Normal. Calculated EF 59%. SUMMARY: Myocardial perfusion imaging study has ABNORMAL findings. CONCLUSION: 1. Moderate-sized fixed defect distal anterior wall/apex with no redistribution to suggest reversible ischemia 2. Nondiagnostic exercise test secondary to left bundle branch block Dictated by: Reagan Whiteside MD on 12/15/2023 at 12:51 Approved by: Reagan Whiteside MD on 12/15/2023 at 12:55
--- OUTSIDE RECORDS SUMMARY | 2023-12-15 08:25 | XMS_ITS | CCD ---
Author Name Unknown Address [address] [place] [address] Organization [facility] Care Team Providers Care Factory Focus Technician Name Role Phone ITALO ANN Unavailable Unavailab le RAFITA, ITALO VALLADARES Unavailable Unavailab le SOSA, CONRAD WILLIS Unavailable Unavailab le RAFITA, ITALO VALLADARES Unavailable Unavailab le SOSA, CONRAD WILLIS Unavailable Unavailab le RAFITA, ITALO VALLADARES Unavailable Unavailab le SOSA, CONRAD WILLIS Unavailable Unavailab le RAFITA, ITALO VALLADARES Unavailable Unavailab le SOSA, CONRAD WILLIS Unavailable Unavailab le DHILLON, TROY Unavailable Unavailable DHILLON, TROY Unavailable Unavailable SOSA, CONRAD Unavailable Unavailable SOSA, CONRAD Unavailable Unavailable BARBER, ANUSHA Unavailable Unavailable SOSA, CONRAD WILLIS Unavailable Unavailab le BARBER, ANUSHA Unavailable Unavailable SOSA, CONRAD WILLIS Unavailable Unavailab le Schwbossmanr, Elda E Unavailable [phone] Unavailable Unavailable Soto Romeo Unavailable Reynaldo Trejo Jr. Unavailable Schwerer, Elda Unavailable Schwerer, Elda Unavailable Schwerer, Elda Unavailable Laquita Medina Unavailable Marva Hunt Unavailable Reynaldo Trejo Unavailable Wes Jason Unavailable Tg Ortega Unavailable DO Maryjo Elda E Primary Care Provider SupriyaFRANCKN Antonella Attending Provider SupriyaDIANEherine Other Provider [phone] DO Conrad Sosa Primary Care Provider [phone] MD Laquita Medina Attending Provider [phone] DO Conard Sosa Attending Provider [phone] [facility], [facility]- De[facility] E Emergency Provider Conrad Sosa Unavailable NIURKA Bryan Referring Unavailable Traboulssi, Dr. Smith Attending Unavaila ble Sosa, Dr. Conrad Willis Primary Care Unava ilable Traboulssi, Dr. Smith Attending Unavaila ble Traboulssi, Dr. Smith Referring Unavaila ble Sosa, Dr. Conrad Willis Primary Care Unava ilable NIURKA Bryan Attending Unavailable Bryan, NIURKA Lutherna Referring Unavailable Sosa DOConrad Primary Care Provider Sosa DO, Conrad Willis Primary Care Provider Miranda Aguillon Attending Unavailable SOSASALOMEEL Referring Unavailable TIMMIS, DR LYNN Admitting Unavailable SOSA, DR CONRAD Harrell Primary Care Unavailable TIMMIS, DR LYNN Attending Unavailable TIMMIS, DR LYNN Consulting Unavailable ZIEBER, DR NELIA Ceballos Consulting Unavailable OMALLEY, DR CHU Admitting Unavailable OMALLEY, DR CHU Attending Unavailable OMALLEY, DR CHU Consulting Unavailable SOSA, DR CONRAD Harrell Primary Care Unavailable BAKHOUS, AZIZ Admitting Unavailable SOSA, DR CONRAD Harrell Primary Care Unavailable BAKHOUS, AZIZ Attending Unavailable BAKHOUS, AZIZ Consulting Unavailable WEST, DR ANUSHA Ricketts Consulting Unavailable SOSA, DR CONRAD Harrell Admitting Unavailable SOSA, DR CONRAD Harrell Attending Unavailable SCHWERERELDA Primary Care Unavailable SOSA, DR CONRAD Harrell Consulting Unavailable MISC, DR HYANES Admitting Unavailable SOSA, DR CONRAD Harrell Primary Care Unavailable MISC, DR HAYNES Attending Unavailable MISC, DR HAYNES Consulting Unavailable ELASHI, DR LATIF Admitting Unavailable ELASHI, DR LATIF Attending Unavailable ELMADIHA, DR LATIF Consulting Unavailable SCHWERER, ELDA Primary Care Unavailable SCHWERER, ELDA Primary Care Unavailable PICHARDO ., GIULIA Consulting Unavailable GRIMALDO ., DR LUCÍA Lau Attending Unavailable GRIMALDO ., DR LUCÍA Lau Admitting Unavailable SPENSER, DR Lucinda Harrell Admitting Unavailable SOSA, DR CONRAD Harrell Primary Care Unavailable SPENSER, DR Lucinda Harrell Attending Unavailable SPENSER, DR Lucinda Harrell Consulting Unavailable GRIMALDO ., DR LUCÍA Lau Attending Unavailable SOSA, DR CONRAD Harrell Primary Care Unavailable PICHARDO ., GIULIA Consulting Unavailable GRIMALDO ., DR LUCÍA Lau Admitting Unavailable LAKSHMIPATHY ., NARANA CRISTINA Admitting Asiya vailable SOSA, DR CONRAD Harrell Primary Care Unavailable LAKSHMIPATHY ., NARANA CRISTINA Attending Asiya vailable SOSA, DR CONRAD Harrell Primary Care Unavailable PICHARDO ., GIULIA Consulting Unavailable GRIMALDO ., DR LUCÍA Lau Attending Unavailable GRIMALDO ., DR LUCÍA Lau Admitting Unavailable SCHWERER, ELDA Primary Care Unavailable GRIMALDO ., DR LUCÍA Lau Attending Unavailable GRIMALDO ., DR LUCÍA Lau Consulting Unavailable GRIMALDO ., DR LUCÍA Lau Admitting Unavailable SÁNCHEZ, BRIJESH Consulting Unavailable PICHARDO ., GIULIA Consulting Unavailable GRIMALDO ., DR LUCÍA Lau Admitting Unavailable SOSA, DR CONRAD Harrell Primary Care Unavailable GRIMALDO ., DR LUCÍA Lau Attending Unavailable PAY ., DR COOLEY Admitting Unavailable SOSA, DR CONRAD Harrell Primary Care Unavailable PAY ., DR COOLEY Attending Unavailable PAY ., DR COOLEY Consulting Unavailable COELLO ., MR VLAD Consulting Unavailable NAVEEN AZAR Consulting Unavailable GELLUCILA HURST Consulting Unavailable SOSA, DR CONRAD Harrell Primary Care Unavailable MISC, DR HAYNES Admitting Unavailable MISC, DR HAYNES Attending Unavailable BUNTING, DR CEDEÑO Admitting Unavailable BUNTING, DR CEDEÑO Attending Unavailable SOSA, DR CONRAD Harrell Primary Care Unavailable SOSA, DR CONRAD Harrell Primary Care Unavailable MISC, DR HAYNES Admitting Unavailable MISC, DR HAYNES Attending Unavailable SosaDO Conrad Primary Care Provider MD Laquita Medina Attending Provider ANUSHA BARBER Referring Unavailable SOSA, CONRAD WILLIS Primary Care Unavailab CARLOS Gonzalez Referring Unavailable SOSA, CONRAD WILLIS Primary Care Unavailab ANUSHA Avilez Admitting Unavailable ELISABETH, ANUSHA Attending Unavailable [facility] Consulting Unavailable CONRAD SOSA Primary Care Unavailab ARYAN Guillen Consulting Unavailable BRYANARYAN Consulting Unavailable ARYAN BRYAN Consulting Unavailable CONRAD SOSA Primary Care Unavailab ANUSHA Avilez Admitting Unavailable ELISABETH, ANUSHA Attending Unavailable [facility], [facility] Consulting Unavailable Laquita Medina Admitting Unavailable Laquita Medina Attending Unavailable Conrad Sosa Primary Care Unavailable Allergies Allergy Classification Reported Allergen(s) Allergy Type Date of Onset Reaction(s) Facility (12 sources) Latex; Translations: [LATEX] Propensity to adverse reactions to drug (disorder) 11-27-19 15 Wound [facility] Repository (1 source) penicillin; Translations: [PENICILLIN] Drug Allergy 06-30-20 17 AOF [facility] Repository (10 sources) Sulfonamides (Antibiotic); Translations: [SULFA (SULFONAMIDE ANTIBIOTICS)] Propensity to adverse reactions to drug (disorder) 08-29-20 09 Hives, Shortness of breath [facility] Repository (1 source) Adhesive agent; Translations: [adhesive] Propensity to adverse reactions (disorder) 02-19-20 12 AOF [facility] Repository (9 sources) Penicillins; Translations: [penicillins] Drug allergy (disorder) 08-29-20 09 AOF, Hives [facility] Repository (1 source) RED RX SINUS TABLET Drug allergy (disorder) 08-29-20 09 AOF [facility] Repository (20 sources) Aspirin; Translations: [Aspirin TABS] Drug Allergy 10-01-20 22 hives, Shortness of breath [facility] Other (2 sources) Penicillins; Translations: [Penicillins] Allergy to drug (finding) Hives, Itching, Rash, Other [facility] 250 DO Work Phone: (3 sources) Sulfonamides (Antibiotic); Translations: [Sulfa Drugs] Allergy to drug (finding) Hives, Rash, Itching [facility] Repository (2 sources) Latex Exam Gloves MISC; Translations: [Latex Exam Gloves MISC] Allergy to drug (finding) Hives, Itching, Rash -[facility] 250 DO Work Phone: (20 sources) Furosemide; Translations: [Lasix] Drug Allergy 02-20-20 21 Unknown [facility] Repository (20 sources) nabumetone Drug Allergy Unknown [facility] [employer] Other (20 sources) Penicillin G Drug Allergy hives [facility] Other (20 sources) semaglutide Drug Allergy dizziness, light headed, nausea [facility] Other (20 sources) Sulfacetamide Drug Allergy hives [facility] Other (20 sources) ADHESIVES AND TAPES Propensity to adverse reactions Unknown [facility] Other (7 sources) Adhesive Tape; Translations: [Adhesive tape] Allergy to substance 11-27-19 15 Rash [facility] (8 sources) Aspirin; Translations: [aspirin] Drug Allergy 02-25-20 13 Unknown Reaction [facility] (3 sources) Ibuprofen; Translations: [IBUPROFEN] Drug Allergy 10-01-20 22 Other [facility] (3 sources) nickel; Translations: [NICKEL] Drug Allergy 10-01-20 22 Itching [facility] (2 sources) Penicillins Drug Allergy 10-01-20 22 Hives, Shortness of breath [facility] (3 sources) Sulfamethoxazole / Trimethoprim; Translations: [SULFAMETHOXAZOLE-T RIMETHOPRIM] Drug Allergy 10-01-20 22 Unknown [facility] (3 sources) traMADol; Translations: [TRAMADOL] Drug Allergy 10-01-20 22 Unknown [facility] (3 sources) Adhesive Tape-Silicones; Translations: [ADHESIVE TAPE-SILICONES] Drug Allergy 10-01-20 22 Wound [facility] (3 sources) Contact Metal Agent; Translations: [CONTACT METAL AGENT] Drug Allergy 10-01-20 22 Itching [facility] (6 sources) bandaids Propensity to adverse reactions rash [facility] [employer] Other (5 sources) DULoxetine Drug Allergy Unknown [facility] [employer] Other (2 sources) Nylon; Translations: [NYLON] Propensity to adverse reactions 03-20-20 23 [facility] Soap; Translations: [SOAP] Propensity to adverse reactions 03-19-20 23 Rash [facility] (1 source) Adhesive Tape; Translations: [Tape] Propensity to adverse reactions (disorder) [facility] Repository (1 source) nabumetone Drug Allergy 02-20-20 21 [facility] Repository (2 sources) Sulfonamides (Antibiotic) Drug allergy (disorder) 02-25-20 13 [facility] Repository (1 source) Misc-Other; Translations: [Misc-Other] Propensity to adverse reactions (disorder) 07-27-20 17 [facility] Repository (3 sources) Furosemide Drug Allergy Unknown [facility] Other (1 source) Penicillins Drug allergy (disorder) 05-27-20 22 [facility] Repository Medications Current Medications Medication Drug Class(es) Dates Sig (Normalized) Sig (Original) 0.5 ML tirzepatide 10 MG/ML Auto-Injector [Mounjaro] (3 sources) Start: 08-04-2022 inject 5 mg by subcutaneous injection every week Mounjaro 5 MG/0.5ML inject 5mg weekly Subcutaneous weekly Jul, Active Start: 08-04-2022 inject 5 mg by subcu taneous injection every week Mounjaro 5 MG/0.5ML inject 5mg weekly Subcutaneous weekly for 28 days Jul, Active 0.5 ML tirzepatide 15 MG/ML Auto-Injector [Mounjaro] (5 sources) Start: 08-04-2022 Mounjaro 7.5 M G/0.5ML 1 injector Subcutaneous weekly for 28 days Jul, Active 0.5 ML tirzepatide 5 MG/ML Auto-Injector [Mounjaro] (8 sources) Start: 08-04-2022 Mounjaro 2.5 M G/0.5ML 1 injector Subcutaneous weekly for 28 days Jul, Active Start: 07-01-2022 Mounjaro 2.5 M G/0.5ML as directed Subcutaneous Jun, Active acetaminophen 325 mg / HYDROcodone bitartrate 5 mg oral tablet (19 sources) Opioid Agonist take 2 tablets by mouth every twelve hours HYDROcodone-Acetaminophen 5-325 MG 2 TABLETS Orally TWICE A DAY Active HYDROcodone-Acet aminophen 5-325 MG 1 1/2 tablet as needed Orally ONCE A DAY Active Albuterol Sulfate (2.5 MG/ 3 ML) 2.5 MG/3ML 0.083% Nebulization Solution (20 sources) Albuterol Sulfat e (2.5 MG/ 3 ML) 2.5 MG/3ML 0.083% Nebulization Solution 3ml Inhalation 4 times a day Active alendronic acid 70 mg oral tablet (20 sources) Bisphosphonate Start: 05-06-2019 take 70 mg by mouth every week Alendronate Active 70 MG PO every week May 06, 2019 12:00am alendronate (FOS AMAX) 70 mg tablet Take 1 tablet (70 mg total) by mouth every 7 (seven) days. Mondays 0 Active allopurinol 100 mg oral tablet (20 sources) Xanthine Oxidase Inhibitor Start: 05-06-2019 End: 03-25-2023 take 200 mg by mouth once daily Allopurinol Active 200 MG PO Daily May 06, 2019 12:00am take 2 tablets by mouth once clay ly Allopurinol 100 mg TAKE TWO TABLETS BY MOUTH ONCE DAILY Active take 2 tablets by mo uth every twenty-four hours azithromycin 250 mg oral tab let (8 sources) Macrolide Antimicrobial Start: 11-19-2021 Start: 11-19-2021 baclofen 10 mg oral tablet (12 sources) gamma-Aminobutyric Acid-ergic Agonist Start: 01-25-2022 take 10 mg by mouth twice daily Baclofen Active 10 MG PO Twice daily January 25, 2022 12:00am cefdinir 300 mg oral capsule (3 sources) Cephalosporin Antibacterial Cefdinir 300 MG as directed Orally daily on for 6 months Active clindamycin 300 mg oral capsule (1 source) Lincosamide Antibacterial Start: 10-04-2022 End: 10-14-2022 take 1 capsule by mouth three times daily clindamycin (CLEOCIN) 300 mg capsule Take 1 capsule (300 mg total) by mouth 3 (three) times a day for 10 days. 30 each 0 10/04/2022 10/14/2022 Active diazePAM 5 mg oral tablet (5 sources) Benzodiazepine take 1 tablet by mouth every twenty-four hours diazePAM 5 MG 1 tablet as needed Orally Once a day Active doxycycline hyclate 100 mg oral capsule (9 sources) Tetracycline-class Drug Start: 02-27-2022 take 1 capsule by mouth every twelve hours Doxycycline Hyclate 100 MG 1 capsule Orally Twice a day for 10 day(s) February, Active Start: 02-26-2022 End: 04-16-2022 take 100 mg by mouth twice daily Doxycycline Hyclate Discontinued 100 MG PO Twice daily 07 08February 26, 2022 12:00am April 16, 2022 1:50pm DULoxetine 30 mg delayed release oral capsule (5 sources) Serotonin and Norepinephrine Reuptake Inhibitor take 1 capsule by mouth every twenty-four hours DULoxetine HCl 30 MG 1 capsule Orally Once a day Active ferrous sulfate 325 mg oral tablet (20 sources) Start: 05-09-20 take 1 tablet by mouth once daily as needed Ferrous Sulfate (Iron) 325 mg (65 mg iron) Tablet Active 325 MG PO Daily May 09, 2019 12:00am she states as needed take 1 tablet by mouth once dante y Ferrous Sulfate 324 (65 Fe) MG Oral Tablet Delayed Release Take 1 tablet daily Quantity: 0 Refills: 0 Ordered: 18-Dec-2021 DO Active take 1 tablet by kirsty th once daily as needed Ferrous Sulfate 325 (65 Fe) MG 1 tablet Orally Once a day prn Active Fiber (20 sources) take 1 tablet by kirsty th twice daily as needed Fiber - 1 tablet Orally two times a day prn Active take 1 tablet by mouth twice clay ly Fiber - 1 tablet Orally two times a day Active fluticasone propionate 0.05 mg/actuat metered dose nasal spray (20 sources) Corticosteroid take 50 ug nasal route once daily Flonase Allergy Relief 50 MCG/ACT 1-2 spray in each nostril Nasally Once a day for 30 day(s) Active take 50 ug nasal route once dante y Flonase Allergy Relief 50 MCG/ACT 1-2 spray in each nostril Nasally Once a day for 30 day(s) Active take 1-2 spray(s) na hemant route once daily for rhinitis fluticasone propionate (FLONASE) 50 mcg/actuation nasal spray Administer 1-2 sprays into each nostril 1 (one) time each day if needed for rhinitis or allergies. Shake gently. Before first use, prime pump. After use, clean tip and replace cap. 0 Active take 1 spray(s) nasal route once daily Flonase Allergy Relief 50 MCG/ACT 1 spray in each nostril Nasally Once a day Active 120 actuat fluticasone propionate 0.115 mg/actuat / salmeterol 0.021 mg/actuat metered dose inhaler (6 sources) Corticosteroid, beta2-Adrenergic Agonist Start: 11-03-2023 take 2 puff(s) by inhalation twice daily Advair HFA 115-21 MCG/ACT 2 puffs Inhalation Twice a day for 30 days Oct, Active take 1 puff(s) by in halation twice daily Fluticasone-Salmeterol 232-14 MCG/ACT 1 puff Inhalation Twice a day Active hydrOXYzine hydrochloride 10 mg oral tablet (20 sources) Antihistamine Start: 05-06-2019 take 10 mg by mouth three times daily Hydroxyzine Hcl Active 10 MG PO Three times daily May 06, 2019 12:00am take 1-2 tablets by mouth every eight hours as needed hydrOXYzine HCl 10 MG 1-2 tablet as need ed Orally EVERY 8 HRS FOR ITCHING Active Lidocaine & Adhesive Sheet 5 % (Patch) (8 sources) Start: 01-27-2022 Lidocaine & Adhesive Sheet 5 % (Patch) as directed Externally DAILY Jan, Active 3 ml liraglutide 6 mg/ml pen injector (2 sources) GLP-1 Receptor Agonist Start: 06-05-2021 inject 0.3 mg by subcutaneous injection every week Saxenda 18 MG/3ML 0.3 mg and may increase weekly to full dose if no side effects and if necessary. Subcutaneous once daily for 30 day(s) May, Active loratadine 10 mg oral tablet (20 sources) take 1 tablet by mouth once daily as needed Magnesium (20 sources) Start: 04-16-2022 take 200 mg by mouth once daily Magnesium Active 200 MG PO Daily April 16, 2022 12:00am take 1 capsule by mouth once clay ly Magnesium 200 MG 1 capsule with a meal Orally Once a day Active Magnesium Active meropenem 1000 mg injection (1 source) Penem Antibacterial Start: 03-24-2023 End: 05-05-2023 meropenem (MERREM) 1 gram injection Infuse 2 g into a venous catheter every 8 (eight) hours. ECF Nursing Instructions: 1)Picc Care 2)Qmon CBC,SR,Creat,CRP, fax to Dr. Bryan [phone] 3)IV ATB for 42 days 4)Call Dr. rByan for F/C/S, N/V/D, rash, 5)F/U with Dr Bryan in 4-5 weeks 6) Call if released before completing IV therapy. 252 g 0 03/24/2023 05/05/2023 Active mounjaro 7.5 mg/0.5ml solution pen-injector (1 source) Start: 08-04-2022 Mounjaro 7.5 MG/0.5ML 1 injector Subcutaneous weekly for 28 days Jul, Active nitrofurantoin, macrocrystals 25 mg / nitrofurantoin, monohydrate 75 mg oral capsule (9 sources) Nitrofuran Antibacterial Start: 05-27-2022 take 1 capsule by mouth twice daily at mealtime Nitrofurantoin Monohyd/M-Cryst (Macrobid) 100 mg capsule Active 100 MG PO Twice daily 01 05May 27, 2022 12:00am must administer with a meal/food Start: 05-27-2022 take 1 capsule by mo [facility] twice daily at mealtime Nitrofurantoin Monohyd/M-Cryst (Macrobid) 100 mg capsule Active 100 MG PO Twice daily 01 05May 27, 2022 12:00am must administer with a meal/food Oxygen 2 liters (20 sources) Oxygen 2 liters continuous prn Active Oxygen 2 liters continuous Active pantoprazole 40 mg delayed release oral tablet (20 sources) Proton Pump Inhibitor Start: 05-06-2019 End: 03-25-2023 take 40 mg by mouth twice daily Pantoprazole Active 40 MG PO Twice daily May 06, 2019 12:00am phenazopyridine hydrochloride 95 mg oral tablet (9 sources) Start: 05-28-2022 take 2 tablets by mouth every eight hours Phenazopyridine HCl 95 MG 2 tablets after meals Orally Three times a day May, Active Start: 05-27-2022 [facility] Phenazopyridine (Azo Urinary Pain Relief) 95 mg tablet Active 95 MG PO Three times daily May 27, 2022 12:00am Start: 05-27-2022 take 1 tablet by kirsty th three times daily Phenazopyridine (Azo Urinary Pain Relief) 95 mg tablet Active 95 MG PO Three times daily May 27, 2022 12:00am potassium chloride 10 meq extended release oral tablet (5 sources) Start: 07-25-2021 take 1 tablet by kirsty th every twenty-four hours Potassium Chloride ER 10 MEQ 1 tablet with food Orally Once a day for 30 day(s) Jul, Active predniSONE 10 mg oral tablet (14 sources) Start: 02-10-2022 predniSONE 10 MG 4 daily for 4 days, 2 daily for 4 days, then 1 daily for 4 days Orally Once a day for 12 day(s) Jan, Active Start: 11-19-2021 Start: 11-19-2021 pregabalin 100 mg oral capsule (5 sources) take 1 capsule by mo [facility] every twenty-four hours Pregabalin 100 MG 1 capsule Orally Once a day Active no122/iron/folic acid ( MULTI ORAL) (2 sources) take 1 tablet by kirsty th every week no122/iron/folic acid ( MULTI ORAL) Take 1 tablet by mouth 1 (one) time per week. 0 Active take 1 tablet by mouth once dante y no122/iron/folic acid ( MULTI ORAL) Take 1 tablet by mouth 1 (one) time each day. 0 Active Vit-Iron Fum-Folic Ac (Prena-Tab) 65 mg iron- 1 mg Tablet (4 sources) Start: 04-16-2022 take 1 tablet by mouth once daily before mealtime Vit-Iron Fum-Folic Ac (Prena-Tab) 65 mg iron- 1 mg Tablet Active 1 TAB PO Daily April 16, 2022 12:00am Vitamin (7 sources) Vitamin Active Vitamin 27-0.8 MG (19 sources) take 1 tablet by mouth once daily Vitamin 27-0.8 MG 1 tablet Orally Once a day Active temazepam 30 mg oral capsule (20 sources) Benzodiazepine Start: 05-06-2019 take 30 mg by mouth once daily at bedtime Temazepam Active 30 MG PO Daily at bedtime May 06, 2019 12:00am tirzepatide (Mounjaro) 7.5 mg/0.5 mL pen injector (1 source) inject 0.5 mL by subcutaneous injection every week tirzepatide (Mounjaro) 7.5 mg/0.5 mL pen injector Inject 0.5 mL (7.5 mg total) under the skin 1 (one) time per week. Mondays 0 Active valACYclovir 1000 mg oral tablet (5 sources) Herpesvirus Nucleoside Analog DNA Polymerase Inhibitor, Herpes Simplex Virus Nucleoside Analog DNA Polymerase Inhibitor, Herpes Zoster Virus Nucleoside Analog DNA Polymerase Inhibitor take 1 tablet by mouth every twenty-four hours Valtrex 1 GM 1 tablet Orally Once a day Active take 1 tablet by kirsty th every twenty-four hours Valtrex 1 GM 1 tablet Orally Once a day Active Vitamin B 12 500 MCG (4 sources) take 1 tablet by kirsty th once daily Vitamin B 12 500 MCG 1 tablet Orally Once a day Active vitamin b12 0.5 mg oral tablet (1 source) Vitamin B12 take 1 tablet by kirsty th every twenty-four hours Vitamin B 12 500 MCG 1 tablet Orally Once a day Active Vitamin D3 1000 UNIT (20 sources) take 1 tablet by mouth once dante y Vitamin D3 1000 UNIT 1 tablet Orally Once a day Active Completed/Discontinued Medications Medication Drug Class(es) Dates Sig (Normalized) Sig (Original) acetaminophen 325 mg oral tablet (20 sources) Start: 03-19-2023 End: 03-25-2023 acetaminophen (TYLENOL) tablet 975 mg Start: 03-19-2023 End: 03-25-2023 take 1 tablet by mouth every six hours as needed acetaminophen (TYLENOL) tablet 650 mg Start: 03-19-2023 End: 03-26-2023 take 2 tablets by mouth three times daily as needed acetaminophen (TYLENOL) 500 mg tablet Take 2 tablets (1,000 mg total) by mouth 3 (three) times a day for 7 days. Take every 8 hours for one week, then as needed. Do not exceed 3,000 mg daily limit. 50 tablet 0 03/19/2023 03/26/2023 Active Start: 10-02-2022 End: 10-06-2022 take 1000 mg by mouth every six hours 1,000 mg, oral, Every 6 hours scheduled, First dose on [facility] 10/02/22 at 2100, [facility] Start: 10-02-2022 End: 10-09-2022 take 2 tablets by mouth three times daily as needed acetaminophen (TYLENOL) 500 mg tablet Take 2 tablets (1,000 mg total) by mouth 3 (three) times a day for 7 days. Take every 8 hours for one week, then as needed. Do not exceed 3,000 mg daily limit. 50 tablet 0 10/02/2022 10/09/2022 Active Start: 10-02-2022 End: 10-06-2022 take 1 tablet by mouth every six hours as needed acetaminophen (TYLENOL) tablet 325 mg take 2 capsules by m outh every six hours acetaminophen 325 mg / oxyCODONE hydrochloride 5 mg oral tablet (20 sources) Opioid Agonist Start: 10-02-2022 End: 10-02-2022 oxyCODONE-acetaminophen (PERCOCET) 5-325 mg per tablet 1 tablet Start: 11-05-2021 Start: 06-23-2021 End: 12-18-2021 take 1 tablet by mouth every six hours Oxycodone-Acetaminophen (Percocet) 5-325 mg tablet Discontinued 1 TAB PO Q6H 10 3 June 23, 2021 December 18, 2021 3:42pm Start: 05-06-2019 End: 12-18-2021 take 1 tablet by mouth once daily Oxycodone-Acetaminophen Discontinued 1 - 2 TAB PO Daily May 06, 2019 12:00am December 18, 2021 3:42pm End: 10-06-2022 oxyCODONE-acetaminophen (PER COCET) 5-325 mg per tablet Take 1-2 tablets by mouth 2 (two) times a day if needed (pain). Max Daily Amount: 4 tablets 0 10/06/2022 Discontinued (Stop Taking at Discharge) albuterol 0.83 mg/ml inhalation solution (20 sources) beta2-Adrenergic Agonist Start: 03-19-2023 End: 03-25-2023 take 2.5 mg by inhalation every six hours as needed 2.5 mg, nebulization, Every 6 hours PRN, wheezing, Starting on [place] 03/19/23 at 1631 Start: 10-03-2022 End: 10-06-2022 albuterol HFA (6.7 g/200 puf f common canister) 90 mcg/actuation inhaler 2 puff Start: 10-02-2022 End: 10-06-2022 take 2.5 mg by inhalation every six hours as needed 2.5 mg, nebulization, Every 6 hours PRN, wheezing, Starting on [facility] 10/02/22 at 1416 Start: 05-09-2019 take 1 puff(s) by in halation every four to six hours Albuterol Sulfate Active 2 PUFF INHALATION EVERY 4-6 HOURS May 09, 2019 12:00am take 2 puff(s) by in halation four times daily as needed Ventolin HFA 108 (90 Base) MCG/ACT 2 puffs as needed Inhalation up to 4 times/day Active take 2 puff(s) by in halation every six hours for wheezing albuterol HFA (PROAIR HFA ; PROVENTIL HFA ; VENTOLIN HFA) 90 mcg/actuation inhaler Inhale 2 puffs every 6 (six) hours if needed for wheezing or shortness of breath. 0 Active take 1 [IU] by inhal ation every four to six hours as needed Albuterol Sulfate 1.25 MG/3ML Inhalation Nebulization Solution USE 1 UNIT DOSE IN NEBULIZER EVERY 4 TO 6 HOURS NEEDED. Quantity: 0 Refills: 0 Ordered: 01-Oct-2021 DO Active aluminum hydroxide 40 mg/ml / magnesium hydroxide 40 mg/ml / simethicone 4 mg/ml oral suspension (2 sources) Start: 03-19-2023 End: 03-25-2023 aluminum-magnesium hydroxide-simethicone (MAALOX) 200-200-20 mg/5 mL suspension 30 mL Start: 10-02-2022 End: 10-06-2022 aluminum-magnesium hydroxide -simethicone (MAALOX) 200-200-20 mg/5 mL suspension 30 mL apixaban 5 mg oral tablet (14 sources) Factor Xa Inhibitor Start: 06-05-2021 End: 09-04-2021 take 1 tablet by mouth twice daily Apixaban (Eliquis) 5 mg tablet Discontinued 5 MG PO Twice daily 60 June 23, 2021 2:30am September 04, 2021 3:21pm Start: 04-30-2021 End: 06-05-2021 take 2 tablets by mouth twice daily, then take 1 tablet by mouth twice daily Apixaban (Eliquis) 5 mg tablet Discontinued 0 .ROUTE .COMPLEX 74 April 30, 2021 12:00am June 05, 2021 10:13am 10 mg po BID x 1 week, then 5 mg po BID take 1 tablet by kirsty th twice daily Eliquis 2.5 MG 1 tab Orally BID Active aspirin 81 mg delayed release oral tablet (2 sources) Platelet Aggregation Inhibitor, Nonsteroidal Anti-inflammatory Drug Start: 03-19-2023 End: 03-20-2023 take 1 tablet by mouth twice daily aspirin 81 mg EC tablet Take 1 tablet (81 mg total) by mouth 2 (two) times a day for 28 days. 56 each 0 03/19/2023 03/20/2023 Discontinued (Stop Taking at Discharge) Start: 10-17-2022 End: 10-03-2022 take 1 tablet by mouth twice daily, then take 1 tablet by mouth twice daily aspirin 81 mg chewable tablet Chew 1 tablet (81 mg total) 2 (two) times a day for 28 days. 1) Aspirin 81 mg, 1 tab PO BID for 6 weeks, Disp appropriate quantity. If patient is prescribed Arixtra/Lovenox/Xarelto, do not begin Aspirin until that medication is finished and then Aspirin only needs to be taken for 4 weeks. 56 each 0 10/17/2022 10/03/2022 Discontinued (Stop Taking at Discharge) bethanechol chloride 25 mg oral tablet (2 sources) Cholinergic Muscarinic Agonist Start: 03-19-2023 End: 03-25-2023 bethanechol (URECHOLINE) tablet 25 mg Start: 10-02-2022 End: 10-06-2022 bethanechol (URECHOLINE) tab let 25 mg bisacodyl 10 mg rectal suppository (2 sources) Stimulant Laxative Start: 03-19-2023 End: 03-25-2023 bisacodyL (DULCOLAX) suppository 10 mg Start: 10-02-2022 End: 10-06-2022 bisacodyL (DULCOLAX) supposi tory 10 mg Budesonide / formoterol (20 sources) Corticosteroid, beta2-Adrenergic Agonist Start: 03-19-2023 End: 03-25-2023 2 puff, inhalation, 2 times daily, First dose on [facility] 03/19/23 at 2100 Patient may use own - Rinse mouth with water after use to reduce aftertaste and incidence of candidiasis. Do not swallow. Is patient COVID 19 positive or under investigation for COVID 19 (PUI) or in a dual occupancy room? No Start: 10-03-2022 End: 10-06-2022 budesonide-formoteroL (SYMBI RODOLFO) 160-4.5 mcg/actuation inhaler 2 puff Start: 07-11-2020 take 2 puff(s) by in halation twice daily Symbicort 160-4.5 MCG/ACT 2 puffs Inhalation Twice a day for 30 days Jun, Active Start: 07-11-2020 Start: 05-09-2019 take 1 puff(s) by in halation twice daily Budesonide-Formoterol (Symbicort) 160-4.5 mcg/actuation Hfa Aerosol Inhaler Active 2 PUFF INHALATION Twice daily May 09, 2019 12:00am take 2 puff(s) by mo [facility] twice daily budesonide-formoteroL (SYMBICORT) 160-4.5 mcg/actuation inhaler Inhale 2 puffs 2 (two) times a day. Rinse mouth with water after use to reduce aftertaste and incidence of candidiasis. Do not swallow. 0 Active Symbicort 160-4. 5 MCG/ACT Inhalation Aerosol USE DIRECTED. Quantity: 0 Refills: 0 Ordered: 01-Oct-2021 DO Active bumetanide 1 mg oral tablet (20 sources) Loop Diuretic Start: 09-30-2022 End: 03-25-2023 take 1 mg by mouth twice daily 1 mg, oral, 2 times daily, First dose on Thu03/20/23 at 0900 Regarding Diuretics - Hold if SBP < 110 ; Plan to start POD#1 Start: 04-10-2021 take 2 tablets by mo ut every twelve hours Bumetanide 0.5 MG 2 tablet Orally TWICE A DAY for 90 days noon Mar, Active Start: 05-06-2019 take 0.5 mg by mouth twice clay ly Bumetanide Active 0.5 MG PO Twice daily May 06, 2019 12:00am calcium chloride 0.0014 meq/ ml / potassium chloride 0.004 meq/ml / sodium chloride 0.103 meq/ml / sodium lactate 0.028 meq/ml injectable solution (2 sources) Start: 03-19-2023 End: 03-19-2023 lactated Ringer's infusion Start: 10-02-2022 End: 10-06-2022 take 100 mL intravenously every hour 100 mL/hr, intravenous, Continuous, Starting on [facility] 10/02/22 at 1445 ceFAZolin (ANCEF) 2 gram/20 mL IV syringe 2 g (2 sources) Start: 03-19-2023 End: 03-20-2023 2 g, intravenous, Administer over 3 Minutes, Every 8 hours, First dose on [facility] 03/19/23 at 2200, For 2 days, Recovery & On Unit Indication: Prophylaxis-Surgical Start: 10-02-2022 End: 10-03-2022 2 g, intravenous, Administer over 3 Minutes, Every 8 hours, First dose on [facility] 10/02/22 at 1700, For 2 doses, Recovery & On Unit Indication: Prophylaxis-Surgical cephalexin 500 mg oral capsule (9 sources) Cephalosporin Antibacterial Start: 10-02-2022 End: 10-03-2022 take 1 capsule by mouth three times daily cephalexin (KEFLEX) 500 mg capsule Take 1 capsule (500 mg total) by mouth 3 (three) times a day for 3 doses. 3 capsule 0 10/02/2022 10/03/2022 Start: 12-22-2020 End: 04-29-2021 take 500 mg by mouth every six hours Cephalexin Discontinued 500 MG PO Q6H 28 December 22, 2020 1:00am April 29, 2021 10:35pm Start: 12-22-2020 End: 04-29-2021 take 500 mg by mouth four times daily Cephalexin Discontinued 500 MG PO Four times daily 40 December 22, 2020 1:00am April 29, 2021 10:35pm cholecalciferol 0.05 mg oral capsule (6 sources) Vitamin D Start: 05-06-2019 End: 04-16-2022 take 1 capsule by mouth once daily Cholecalciferol (Vitamin D3) (Vitamin D3) 2,000 unit Capsule Discontinued 2000 UNIT PO Daily May 06, 2019 12:00am April 16, 2022 1:50pm Vitamin D 1000 U NIT CAPS TAKE 1 CAPSULE Daily Quantity: 0 Refills: 0 Ordered: 2-Mar-2022 DO Active cloNIDine hydrochloride 0.1 mg oral tablet (3 sources) Central alpha-2 Adrenergic Agonist Start: 03-19-2023 End: 03-25-2023 take 1 tablet by mouth every six hours as needed cloNIDine (CATAPRES) tablet 0.1 mg Start: 10-02-2022 End: 10-06-2022 take 1 tablet by mouth every six hours as needed cloNIDine (CATAPRES) tablet 0.1 mg clopidogrel 75 mg oral tablet (20 sources) P2Y12 Platelet Inhibitor Start: 09-04-2021 End: 02-28-2022 take 75 mg by mouth once daily Clopidogrel Discontinued 75 MG PO Daily 90 90 December 03, 2021 12:56pm February 28, 2022 12:59pm cyclobenzaprine hydrochloride 10 mg oral tablet (1 source) Muscle Relaxant Start: 10-02-2022 End: 10-06-2022 cyclobenzaprine (FLEXERIL) tablet 10 mg diphenhydrAMINE (3 sources) Histamine-1 Receptor Antagonist Start: 03-19-2023 End: 03-25-2023 take 25 mg intravenously every six hours as needed 25 mg, intravenous, Every 6 hours PRN, itching, Starting on [facility] 03/19/23 at 1631 Start: 03-19-2023 End: 03-25-2023 diphenhydrAMINE (BENADRYL) c apsule 25 mg Start: 10-05-2022 End: 10-06-2022 take 1 capsule by mouth every six hours as needed diphenhydrAMINE (BENADRYL) capsule 25 mg docusate sodium 100 mg oral capsule (2 sources) Start: 03-19-2023 End: 03-25-2023 docusate sodium (COLACE) capsule 100 mg 1 ml fentaNYL 0.05 mg/ml injection (3 sources) Opioid Agonist Start: 03-19-2023 End: 03-19-2023 fentaNYL (SUBLIMAZE) injection 50 mcg Start: 10-02-2022 End: 10-02-2022 fentaNYL (SUBLIMAZE) injecti on 25 mcg Start: 10-02-2022 End: 10-02-2022 fentaNYL (SUBLIMAZE) injecti on 50 mcg fluconazole 100 mg oral tablet (20 sources) Azole Antifungal Start: 06-05-2021 End: 04-16-2022 take 100 mg by mouth once daily as needed Fluconazole Discontinued 100 MG PO Daily June 05, 2021 12:00am April 16, 2022 1:52pm as needed gabapentin 300 mg oral capsule (20 sources) Anti-epileptic Agent Start: 03-19-2023 End: 03-25-2023 take 300 mg by mouth three times daily 300 mg, oral, 3 times daily, First dose on [facility] 03/19/23 at 2100 Start: 10-02-2022 End: 10-06-2022 take 300 mg by mouth three times daily 300 mg, oral, 3 times daily, First dose on [facility] 10/02/22 at 2100 Start: 06-11-2021 End: 06-11-2021 take 300 mg by mouth three times daily Gabapentin Discontinued 300 MG PO Three times daily June 11, 2021 12:00am June 11, 2021 2:21pm Start: 04-29-2021 take 2 capsules by m outh three times daily Gabapentin Active 300 MG PO Three times daily April 29, 2021 12:00am 2 capsules orally tid glucagon (rdna) 1 mg injection (1 source) Antihypoglycemic Agent Start: 10-02-2022 End: 10-06-2022 glucagon injection 1 mg 500 ml glucose 500 mg/ml injection (4 sources) Start: 10-02-2022 End: 10-06-2022 dextrose 15 gram/59 mL oral solution 30 g Start: 10-02-2022 End: 10-06-2022 dextrose 15 gram/59 mL oral solution 15 g Start: 10-02-2022 End: 10-06-2022 dextrose (D50W) 50% injectio n 25 g 0.5 ml HYDROmorphone hydrochloride 1 mg/ml prefilled syringe (2 sources) Opioid Agonist Start: 03-19-2023 End: 03-25-2023 HYDROmorphone (DILAUDID) injection 0.5 mg Start: 10-02-2022 End: 10-06-2022 HYDROmorphone (DILAUDID) inj ection 0.5 mg insulin lispro 100 unt/ml injectable solution (1 source) Insulin Analog Start: 10-02-2022 End: 10-06-2022 insulin lispro (HumaLOG) injection 1-6 Units lidocaine 0.05 mg/mg medicated patch (4 sources) Antiarrhythmic, Amide Local Anesthetic Start: 01-25-2022 End: 04-16-2022 apply 1 dose topically once daily Lidocaine Discontinued 1 PATCH TOPICAL Daily January 25, 2022 12:00am April 16, 2022 1:53pm leave on most painful area for up to 12 hrs lisinopril 40 mg oral tablet (4 sources) Angiotensin Converting Enzyme Inhibitor Start: 05-06-2019 End: 04-29-2021 take 40 mg by mouth once daily Lisinopril Discontinued 40 MG PO Daily May 06, 2019 12:00am April 29, 2021 10:36pm magnesium hydroxide 80 mg/ml oral suspension (2 sources) Start: 03-20-2023 End: 03-25-2023 magnesium hydroxide (MILK OF MAGNESIA) 400 mg/5 mL suspension 30 mL Start: 10-02-2022 End: 10-06-2022 magnesium hydroxide (MILK OF MAGNESIA) 400 mg/5 mL suspension 30 mL magnesium oxide 400 mg oral tablet (4 sources) Start: 03-19-2023 End: 03-25-2023 take 400 mg by mouth once daily 400 mg, oral, Nightly, First dose on [facility] 03/19/23 at 2100 take 1 tablet by mouth at bedtim e magnesium oxide 500 mg tablet Take 500 mg by mouth at bedtime. 0 Active Magnesium Oxide 400 (241.3 Mg) MG TABS Take 1 tablet daily Quantity: 0 Refills: 0 Ordered: 25-Sep-2022 DO Active meropenem (MERREM) 1 g in sodium chloride 0.9 % 100 mL IVPB - MBP (1 source) Start: 03-20-2023 End: 03-25-2023 meropenem (MERREM) 1 g in sodium chloride 0.9 % 100 mL IVPB - MBP midodrine hydrochloride 5 mg oral tablet (20 sources) alpha-Adrenergi c Agonist Start: 10-02-2022 End: 10-06-2022 take 2.5 mg by mouth twice daily 2.5 mg, oral, 2 times daily, First dose on [facility] 10/02/22 at 2100 Start: 04-29-2021 End: 03-18-2023 take 2.5 mg by mouth twice daily Midodrine Active 2.5 MG PO Twice daily April 29, 2021 12:00am Mounjaro 2.5 MG/0.5ML Subcutaneous Solution Pen-injector (1 source) Mounjaro 2.5 MG/ 0.5ML Subcutaneous Solution Pen-injector as directed Quantity: 0 Refills: 0 Ordered: 25-Sep-2022 DO Active Naloxone (2 sources) Opioid Antagonist Start: 03-19-2023 End: 03-25-2023 naloxone (NARCAN) injection 0.4 mg Start: 10-02-2022 End: 10-06-2022 naloxone (NARCAN) injection 0.4 mg 2 ml ondansetron 2 mg/ml injection (20 sources) Serotonin-3 Receptor Antagonist Start: 03-19-2023 End: 03-25-2023 take 4 mg intravenously every six hours as needed ondansetron (PF) (ZOFRAN) injection 4 mg Start: 10-02-2022 End: 03-26-2023 take 1 tablet by mouth every eight hours for nausea ondansetron (ZOFRAN) 4 mg tablet Take 1 tablet (4 mg total) by mouth every 8 (eight) hours if needed for nausea or vomiting for up to 7 days. 20 tablet 0 03/19/2023 03/26/2023 Active Start: 10-02-2022 End: 10-06-2022 take 4 mg intravenously every six hours as needed ondansetron (PF) (ZOFRAN) injection 4 mg Start: 06-05-2021 take 4 mg by mouth once daily Ondansetron Active 4 MG PO Daily June 05, 2021 12:00am Start: 03-07-2021 take 1 tablet by kirsty th three times daily as needed for nausea and vomiting Ondansetron HCl - 4 MG Oral Tablet TAKE ONE TABLET BY MOUTH THREE TIMES A DAY NEEDED FOR NAUSEA AND VOMITING Quantity: 30 Refills: 0 Ordered: 07-Mar-2021 DO Start : 07-Mar-2021 Active take 1 tablet by kirsty th every twenty-four hours Ondansetron HCl 4 MG 1 tablet Orally Once a day Active oxyCODONE (6 sources) Opioid Agonist Start: 03-20-2023 End: 03-25-2023 oxyCODONE (ROXICODONE) immed iate release tablet 10 mg Start: 03-19-2023 End: 03-19-2023 take 5 mg by mouth every four hours as needed for pain 5 mg, oral, Every 4 hours PRN, Breakthrough pain, Starting on [facility] 03/19/23 at 1506, Recovery & On Unit May consider scheduled oxyCODONE instead of PRN Start: 03-19-2023 End: 03-26-2023 oxyCODONE (ROXICODONE) 5 mg immediate release tablet Take 1-2 tablets (5-10 mg total) by mouth every 4 (four) hours if needed for moderate pain or severe pain for up to 7 days. Dx: Z96.6 Max Daily Amount: 60 mg 40 tablet 0 03/19/2023 03/26/2023 Active Start: 10-02-2022 End: 10-06-2022 oxyCODONE (ROXICODONE) immed iate release tablet 5 mg Start: 10-02-2022 End: 10-09-2022 oxyCODONE (ROXICODONE) 5 mg immediate release tablet Take 1-2 tablets (5-10 mg total) by mouth every 4 (four) hours if needed for moderate pain or severe pain for up to 7 days. Dx: Z96.6 Max Daily Amount: 60 mg 40 tablet 0 10/02/2022 10/09/2022 Active End: 03-25-2023 take 1 capsule by mouth once daily oxyCODONE (OXY-IR) 5 mg immediate release capsule Take 1-2 capsules (5-10 mg total) by mouth 1 (one) time each day if needed (pain). 0 03/25/2023 Discontinued (Stop Taking at Discharge) Oxygen Therapy, Adult (2 sources) Start: 03-19-2023 End: 03-25-2023 Oxygen Therapy, Adult Start: 10-02-2022 End: 10-06-2022 Oxygen Therapy, Adult polyethylene glycol 3350 [id number] mg powder for oral solution (1 source) Osmotic Laxative Start: 03-19-2023 End: 03-25-2023 polyethylene glycol (MIRALAX) packet 17 g promethazine hydrochloride 25 mg rectal suppository (4 sources) Phenothiazine Start: 03-19-2023 End: 03-25-2023 take 1 tablet by mouth every six hours as needed promethazine (PHENERGAN) tablet 25 mg Start: 03-19-2023 End: 03-25-2023 take 25 mg rectal route every six hours as needed promethazine (PHENERGAN) suppository 25 mg Start: 10-02-2022 End: 10-06-2022 take 1 tablet by mouth every six hours as needed promethazine (PHENERGAN) tablet 25 mg Start: 10-02-2022 End: 10-06-2022 take 25 mg rectal route every six hours as needed promethazine (PHENERGAN) suppository 25 mg rivaroxaban 10 mg oral tablet (8 sources) Factor Xa Inhibitor Start: 10-02-2022 End: 04-17-2023 rivaroxaban (XARELTO) tablet 10 mg sennosides, care home 8.6 mg oral tablet (2 sources) Start: 03-19-2023 End: 03-25-2023 senna (SENOKOT) tablet 8.6 mg Start: 10-02-2022 End: 10-06-2022 senna (SENOKOT) tablet 8.6 m g 125 ml sodium chloride 9 mg/ ml prefilled syringe (5 sources) Start: 03-20-2023 End: 03-25-2023 sodium chloride 0.9 % flush 10 mL Start: 03-19-2023 End: 03-25-2023 sodium chloride 0.9 % flush 10 mL Start: 03-19-2023 End: 03-25-2023 sodium chloride 0.9 % infusi on Start: 10-02-2022 End: 10-06-2022 sodium chloride 0.9 % flush 10 mL spironolactone 50 mg oral tablet (7 sources) Aldosterone Antagonist Start: 04-29-2021 End: 09-04-2021 take 25 mg by mouth once daily Spironolactone Discontinued 25 MG PO Daily April 29, 2021 12:00am September 04, 2021 3:22pm Spironolactone 2 5 MG 1 tablet Orally Active tirzepatide (Mounjaro) 2.5 mg/0.5 mL pen injector (2 sources) End: 03-18-2023 inject 0.5 mL by subcutaneous injection every week tirzepatide (Mounjaro) 2.5 mg/0.5 mL pen injector Inject 0.5 mL (2.5 mg total) under the skin 1 (one) time per week. 0 03/18/2023 Discontinued (Entered in Error) inject 2.5 mg by sub cutaneous injection every week tirzepatide (Mounjaro) 2.5 mg/0.5 mL pen injector Inject 2.5 mg under the skin 1 (one) time per week. 0 Active tiZANidine 4 mg oral tablet (20 sources) Central alpha-2 Adrenergic Agonist Start: 03-19-2023 End: 03-25-2023 take 8 mg by mouth once daily as needed for muscle spasms 8 mg, oral, Daily PRN, muscle spasms, Starting on Thu03/19/23 at 1631 Start: 07-31-2021 End: 03-18-2023 take 1 tablet by mouth in the morning, then take 1 tablet by mouth in the evening tiZANidine HCl - 4 MG Oral Tablet take one tabelt in the morning and one in the evening Quantity: 0 Refills: 0 Ordered: 31-Jul-2021 DO Start : 31-Jul-2021 Active Start: 05-06-2019 End: 01-25-2022 take 2 tablets by mouth twice daily as needed Tizanidine Discontinued 4 MG PO Q12H May 06, 2019 12:00am January 25, 2022 8:56pm 2 tablets as needed orally twice a day take 2 tablets by mo uth twice daily as needed tiZANidine HCl 4 MG 2 tablet as needed Orally TWICE A DAY NEEDED Active topiramate 25 mg oral tablet (20 sources) Start: 03-19-2023 End: 03-25-2023 take 50 mg by mouth once daily for vomiting 50 mg, oral, Nightly, First dose on Thu03/19/23 at 2100 HAZARDOUS Drug Precautions - Low Risk (Category A/NIOSH Group 3) Reproductive Risk Only: - Do NOT split, crush, or open dosage units - Single pair of ASTM standard [id number] certified chemotherapy gloves - Eye protection (goggles or face shield) required only with a potential for facial contact (i.e. concern for spitting or vomiting of the dose during or after administration) Start: 10-03-2022 End: 10-06-2022 take 50 mg by mouth once daily for vomiting 50 mg, oral, Daily, First dose on Thu10/03/22 at 0900 HAZARDOUS Drug Precautions - Low Risk (Category A/NIOSH Group 3) Reproductive Risk Only: - Do NOT split, crush, or open dosage units - Single pair of ASTM standard [id number] certified chemotherapy gloves - Eye protection (goggles or face shield) required only with a potential for facial contact (i.e. concern for spitting or vomiting of the dose during or after administration) Start: 03-21-2022 Topamax 25 MG 2 TABLETS Orally Late afternoon for 30 day(s) Mar, Active Start: 03-21-2022 Topamax 25 MG 1 tablet in the evening, if no issues or side effects increase to 2 tablets after 1 week. Orally Once a day for 30 day(s) Mar, Active traMADol hydrochloride 50 mg oral tablet (9 sources) Opioid Agonist Start: 03-19-2023 End: 03-20-2023 take 50-100 mg by mouth every six hours as needed traMADoL (ULTRAM) 50 mg tablet Take 1-2 tablets (50-100 mg total) by mouth every 6 (six) hours if needed for moderate pain for up to 7 days. Dx: Z96.6 Max Daily Amount: 400 mg 40 tablet 0 03/19/2023 03/20/2023 Discontinued (Stop Taking at Discharge) Start: 10-02-2022 End: 10-03-2022 take 50-100 mg by mouth every six hours as needed traMADoL (ULTRAM) 50 mg tablet Take 1-2 tablets (50-100 mg total) by mouth every 6 (six) hours if needed for moderate pain for up to 7 days. Dx: Z96.6 Max Daily Amount: 400 mg 40 tablet 0 10/02/2022 10/03/2022 Discontinued (Stop Taking at Discharge) take 1 tablet by kirsty th every twenty-four hours traMADol HCl 50 MG 1 tablet as needed Orally Once a day Active traZODone hydrochloride 50 mg oral tablet (2 sources) Serotonin Reuptake Inhibitor Start: 03-19-2023 End: 03-25-2023 traZODone (DESYREL) tablet 25 mg Start: 10-02-2022 End: 10-06-2022 traZODone (DESYREL) tablet 5 0 mg Problems Active Problems Problem Classification Problem Date Documented Date Episodic/Chronic Asthma (20 sources) Moderate persistent asthma; Translations: [Moderate persistent asthma, uncomplicated] Onset: 1 Resolved: 2 Chronic Chronic kidney disease (20 sources) Chronic kidney disease stage 3; Translations: [Chronic kidney disease, Stage III (moderate)] Onset: 1 Resolved: 2 Chronic Chronic kidney disease (20 sources) Chronic kidney disease; Translations: [Chronic kidney disease, stage 3a] Onset: 1 Resolved: 2 Chronic obstructive pulmonary disease and bronchiectasis (3 sources) Chronic obstructive lung disease; Translations: [Chronic airway obstruction, not elsewhere classified] Onset: 3 Chronic Conditions associated with dizziness or vertigo (2 sources) Dizziness; Translations: [Dizziness and giddiness] Episodic Congestive heart failure; nonhypertensive (20 sources) Chronic right-sided congestive heart failure; Translations: [Congestive heart failure, unspecified] Onset: 1 Resolved: 2 Chronic Coronary atherosclerosis and other heart disease (1 source) Atherosclerotic heart disease of [place] coronary artery without angina pectoris; Translations: [ASHD [place] W/O ANGINA PECTORIS] Onset: 3 Chronic Deficiency and other anemia (20 sources) Anemia in chronic kidney disease; Translations: [Anemia in chronic kidney disease] Chronic Deficiency and other anemia (1 source) Anemia in chronic kidney disease Onset: 1 Resolved: 1 Chronic Deficiency and other anemia (4 sources) Iron deficiency anemia; Translations: [Iron deficiency anemia, unspecified] 04-17-2022 Episodic Deficiency and other anemia (2 sources) Iron deficiency anemia, unspecified; Translations: [Iron deficiency anemia, unspecified] 04-16-2022 Episodic Diabetes mellitus without complication (2 sources) Diabetic on diet only; Translations: [Diabetes mellitus without mention of complication, type II or unspecified type, not stated as uncontrolled] Chronic Diabetes mellitus without complication (10 sources) Other abnormal glucose; Translations: [Impaired fasting glucose] Onset: 1 Resolved: 2 Episodic Esophageal disorders (20 sources) Gastroesophageal reflux disease; Translations: [Gastro-esophageal reflux disease without esophagitis] Onset: 1 Resolved: 2 Chronic Essential hypertension (20 sources) Hypertensive disorder; Translations: [Essential (primary) hypertension] Onset: 1 Resolved: 2 Chronic Gout and other crystal arthropathies (20 sources) 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; Translations: [Other secondary chronic gout, unspecified site, without tophus (tophi)] Onset: 2 Resolved: 2 Chronic Hypertension with complications and secondary hypertension (20 sources) Chronic kidney disease due to hypertension; Translations: [Hypertensive chronic kidney disease with stage 1 through stage 4 chronic kidney disease, or unspecified chronic kidney disease] Onset: 1 Resolved: 2 Chronic Immunizations and screening for infectious disease (1 source) Patient encounter status; Translations: [Other specified vaccination] Episodic Nutritional deficiencies (1 source) Vitamin D deficiency, unspecified; Translations: [VITAMIN D DEFICIENCY UNSPECIFIED] Onset: 3 Chronic Osteoarthritis (20 sources) Osteoarthritis of knee; Translations: [Osteoarthritis of knee, unspecified] Onset: 2 Resolved: 2 Chronic Other aftercare (6 sources) Other director of clinical trials (current) drug therapy; Translations: [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 DRUG THERAPY] Onset: 2 Resolved: 2 Episodic Other aftercare (1 source) 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/antiplat elets; Translations: [[facility] ANTITHROMBOT/ANTIPLATLET S] Onset: 3 Episodic Other circulatory disease (2 sources) Low blood pressure; Translations: [Hypotension, unspecified] Episodic Other connective tissue disease (2 sources) Presence of right artificial knee joint; Translations: [PRESENCE RT ARTIFICIAL K] Onset: 8 Chronic Other connective tissue disease (6 sources) Presence of left artificial knee joint; Translations: [PRESENCE LEFT ARTIFICIAL KNEE JOINT] Onset: 3 Chronic Other connective tissue disease (4 sources) Cramp; Translations: [Cramp and spasm] 06-10-2021 Episodic Other diseases of kidney and ureters (20 sources) Hyperparathyroidism due to renal insufficiency; Translations: [Secondary hyperparathyroidism of renal origin] Chronic Other diseases of kidney and ureters (4 sources) Secondary hyperparathyroidism of renal origin; Translations: [SEC HYPERPARATHYROIDISM RENAL ORIGN] Onset: 1 Resolved: 2 Chronic Other diseases of kidney and ureters (4 sources) Acute renal insufficiency; Translations: [Disorder of kidney and ureter, unspecified] 05-06-2019 Episodic Other endocrine disorders (20 sources) Hypoglycemia; Translations: [Hypoglycemia, unspecified] Chronic Other endocrine disorders (5 sources) Hypoglycemia, unspecified; Translations: [Hypoglycemia E16.2] Onset: 1 Resolved: 2 Chronic Other gastrointestinal disorders (20 sources) History of bariatric surgical procedure; Translations: [Bariatric surgery status] Episodic Other gastrointestinal disorders (8 sources) Bariatric surgery status; Translations: [Gastric bypass status for obesity Z98.84] Onset: 1 Resolved: 2 Episodic Other lower respiratory disease (2 sources) Dyspnea; Translations: [Shortness of breath] Episodic Other nervous system disorders (20 sources) Chronic pain; Translations: [Other chronic pain] Chronic Other nervous system disorders (7 sources) Other chronic pain; Translations: [Other chronic pain G89.29] Onset: 1 Resolved: 2 Chronic Other nervous system disorders (4 sources) Chronic pain syndrome; Translations: [CHRONIC PAIN SYNDROME] Onset: 3 Chronic Other non-traumatic joint disorders (9 sources) Pain in left knee; Translations: [PAIN IN LEFT KNEE] Onset: 8 Resolved: 2 Episodic Other non-traumatic joint disorders (20 sources) Arthralgia of the lower leg; Translations: [Pain in right knee] Episodic Other nutritional; endocrine; and metabolic disorders (20 sources) Body mass index 40+ - severely obese; Translations: [Morbid obesity] Chronic Other nutritional; endocrine; and metabolic disorders (20 sources) Morbid obesity; Translations: [Morbid (severe) obesity due to excess calories] Chronic Other nutritional; endocrine; and metabolic disorders (20 sources) Metabolic syndrome X; Translations: [Metabolic syndrome] Chronic Other nutritional; endocrine; and metabolic disorders (4 sources) Morbid (severe) obesity due to excess calories; Translations: [Morbid obesity E66.01] Onset: 1 Resolved: 2 Chronic Other nutritional; endocrine; and metabolic disorders (8 sources) Body mass index (BMI) 45.0-49.9, adult; Translations: [BMI 45.0-49.9, adult Z68.42] Onset: 1 Resolved: 2 Chronic Other nutritional; endocrine; and metabolic disorders (8 sources) Metabolic syndrome; Translations: [Metabolic syndrome X E88.81] Onset: 1 Resolved: 2 Chronic Other nutritional; endocrine; and metabolic disorders (20 sources) Obesity; Translations: [Obesity, unspecified] Chronic Other nutritional; endocrine; and metabolic disorders (4 sources) Body mass index (BMI) 40.0-44.9, adult Onset: 2 Resolved: 2 Chronic Other nutritional; endocrine; and metabolic disorders (1 source) Obesity, unspecified; Translations: [Obesity, unspecified] Onset: 3 Chronic Other upper respiratory disease (20 sources) Allergic rhinitis; Translations: [Allergic rhinitis, unspecified] Chronic Other upper respiratory disease (4 sources) Allergic rhinitis, unspecified; Translations: [Allergic rhinitis J30.9] Onset: 1 Resolved: 2 Chronic Peritonitis and intestinal abscess (4 sources) Infectious disease of abdomen; Translations: [Peritonitis, unspecified] 02-26-2022 Episodic Phlebitis; thrombophlebitis and thromboembolism (15 sources) Left lower limb vein thrombophlebitis; Translations: [Phlebitis and thrombophlebitis of other deep vessels of left lower extremity] Onset: 3 06-23-2021 Episodic Residual codes; unclassified (2 sources) Sleep apnea; Translations: [Unspecified sleep apnea] Chronic Residual codes; unclassified (20 sources) Obstructive sleep apnea syndrome; Translations: [Obstructive sleep apnea (adult) (pediatric)] Chronic Residual codes; unclassified (12 sources) Obstructive sleep apnea (adult) (pediatric); Translations: [JEREMY (obstructive sleep apnea) G47.33] Onset: 1 Resolved: 2 Chronic Residual codes; unclassified (2 sources) Edema; Translations: [Edema] Episodic Residual codes; unclassified (20 sources) Insomnia; Translations: [Insomnia, unspecified] Episodic Screening and history of mental health and substance abuse codes (20 sources) Ex-smoker; Translations: [Personal history of tobacco use] Episodic Comment on above: high school smoker; Skin and subcutaneous tissue infections (4 sources) Cellulitis; Translations: [Cellulitis, unspecified] 12-22-2020 Episodic Spondylosis; intervertebral disc disorders; other back problems (14 sources) Degeneration of lumbar intervertebral disc; Translations: [Other intervertebral disc degeneration, lumbar region] Onset: 2 Chronic Spondylosis; intervertebral disc disorders; other back problems (19 sources) Pain in thoracic spine; Translations: [Low back pain] Onset: 1 Resolved: 2 Episodic Thyroid disorders (4 sources) Nontoxic multinodular goiter; Translations: [NONTOXIC MULTINODULAR GOITER] Onset: 3 Chronic Unclassified (3 sources) Unknown / UNK(Unknown) Onset: 7 Unclassified (1 source) OTH SPEC SYSTEM INVOLV CONNECT TISS; Translations: [OTH SPEC SYSTEM INVOLV CONNECT TISS] Onset: 3 Urinary tract infections (4 sources) Urinary tract infectious disease; Translations: [Urinary tract infection, site not specified] 05-27-2022 Episodic Viral infection (4 sources) Viral disease; Translations: [Viral infection, unspecified] 05-10-2019 Episodic Past or Other Problems Problem Classification Problem Date Documented Date Episodic/Chronic Complication of device; implant or graft (11 sources) Loosening of knee joint prosthesis; Translations: [Mechanical loosening of internal left knee prosthetic joint, subsequent encounter] Onset: 10-02-2022 Episodic Deficiency and other anemia (4 sources) Anemia, unspecified; Translations: [ANEMIA UNSPECIFIED] Onset: 09-25-2021 Resolved: 04-02-2022 Episodic Other aftercare (1 source) Encounter for follow-up examination after completed treatment for conditions other than malignant neoplasm; Translations: [Encounter for follow-up examination after completed treatment for conditions other than malignant neoplasm] Onset: 06-30-2017 Episodic Other connective tissue disease (4 sources) Trochanteric bursitis, left hip; Translations: [TROCHANTERIC BURSITIS LEFT HIP] Onset: 06-05-2022 Episodic Other non-traumatic joint disorders (1 source) Pain in right knee; Translations: [PAIN IN RIGHT KNEE] Onset: 12-21-2017 Episodic Other nutritional; endocrine; and metabolic disorders (4 sources) 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 inflammatory arthritis and tophaceous disease; Translations: [HU W/O SIGNS IA AND TOPHACEOUS DZ] Onset: 09-05-2021 Resolved: 04-02-2022 Episodic Other skin disorders (4 sources) Localized swelling, mass and lump, left lower limb; Translations: [LOC SWELL MASS LUMP LT LOWER LIMB] Onset: 05-08-2022 Episodic Residual codes; unclassified (8 sources) Localized edema; Translations: [Lower extremity edema R60.0] Onset: 07-25-2021 Resolved: 04-02-2022 Episodic Residual codes; unclassified (1 source) Insomnia, unspecified; Translations: [Insomnia, unspecified type G47.00] Onset: 07-25-2021 Resolved: 07-25-2021 Episodic Unclassified (1 source) Z96.651 Onset: 08-03-2018 Results Test Name Value Interpretation Reference Range Facility Bacteria Spec Anaerobe Culto n 07-03-2023 Bacteria identified Anaer cx Nom (Unsp spec) Culture, Anaerobic Status = F No anaerobes grown after [address] [facility] Comment on above: Performed By: #### 1 7856-6 #### [facility] ([facility]) LAB [address] [place] [address] Bacteria Spec BFld Culton Bacteria identified Sterile body fluid culture Nom (Unsp spec) Fluid Culture Status = F No growth at 3 days Gram Stain Result Status = F Few Polymorphonuclear leukocytes This is an appended report. These results have been appended to a previously preliminary verified report. No Epithelial cells This is an appended report. These results have been appended to a previously preliminary verified report. No organisms seen This is an appended report. These results have been appended to a previously preliminary verified report. Normal [facility] Comment on above: Performed By: #### 1 7856-6 #### [facility] ([facility]) LAB [address] [place] [address] Cell count panel (Body fld)o n 07-03-2023 Fluid Eosinophils 1.0 % Normal [facility] Comment on above: Performed By: #### 3 4556-1 #### [facility] ([facility] [address] [facility] [place] [address] Fluid Lymphocytes 1.0 % Normal [facility] Comment on above: Performed By: #### 3 4556-1 #### [facility] ([facility] [address] [place] [address] Fluid Neutrophils 98.0 % Normal [facility] Comment on above: Performed By: #### 3 4556-1 #### [facility] ([facility] [address] [facility] [place] [address] Fungus Skin Culton 3 Fungus identified Cx Nom (Skin) Culture, Fungus Status = F No growth at [address] [facility] Comment on above: Performed By: #### 1 7856-6 #### [facility] ([facility]) LAB [address] [place] [address] CRP [Mass/Vol]on 06-29-2023 C-Reactive Protein 8.8 mg/dL High 0.0-1.0 [facility] Comment on above: Performed By: #### 6 35-3 #### [facility] [address] [place] [address] Hemogram and platelets WO di fferential panel (Bld)on 06-29-2023 Sed Rate 48 mm/hr High 0-20 [facility] Comment on above: Performed By: #### 6 35-3 #### [facility] [address] [place] [address] ECG 12 leadon 03-25-2023 P Wave [place] 46 degrees [facility] P-R Interval 168 ms [facility] Pathologist interpretation (Bld) [Interp] Normal sinus rhythm Left bundle branch block Abnormal ECG Confirmed by Evelyn Jose MD ([id number]) on 03/25/2023 1:21:08 PM [facility] Q-T Interval 404 ms [facility] QRS Duration 128 ms [facility] QTc 448 ms [facility] R [place] -19 degrees [facility] Troponin T.cardiac [Mass/Vol] 83 ug/L degrees [facility] Laboratory - Coagulationon 0 03-25-2023 ACT Coag (Bld) 74 s BPM [facility] SARS-CoV-2 (COVID-19) RNA NA A+probe Ql (Resp)on 03-25-2023 Interpretation and review of laboratory results Normal [facility] SARS-CoV-2 (COVID-19) RdRp gene TORRES+probe Ql (Resp) Not detected Not Detected [facility] SARS-CoV-2 RNA Resp Ql TORRES+p robeon 03-25-2023 SARS-CoV-2 (COVID-19) RNA TORRES+probe Ql (Resp) Not detected Normal Not Detected [facility] Comment on above: Performed By: #### 1 7856-6 #### [facility] [place] [facility] [address] [place] [address] Bacteria identified Anaer cx Nom (Unsp spec)Ordered By: Deep Sagastume on 03-23-2023 [facility] Bacteria identified Anaer cx Nom (Unsp spec)on 03-23-2023 [facility] Culture anaerobicOrdered By: Deep Sagastume on 03-23-2023 Bacteria identified Anaer cx Nom (Unsp spec) No anaerobes grown after 4 days. [facility] Laboratory - Microbiology an d Antimicrobial susceptibilityon 03-23-2023 Bacteria identified Anaer cx Nom (Unsp spec) No anaerobes grown after 4 days. [facility] Bacteria identified Cx Nom ( Tiss)on 03-22-2023 Microscopic observation Gram stain Nom (Unsp spec) No Polymorphonuclear leukocytes [facility] Comment on above: This is an appended report. These results have been appended to a previously preliminary verified report. Microscopic observation Gram stain Nom (Unsp spec) No Epithelial cells [facility] Comment on above: This is an appended report. These results have been appended to a previously preliminary verified report. Microscopic observation Gram stain Nom (Unsp spec) No organisms seen [facility] Comment on above: This is an appended report. These results have been appended to a previously preliminary verified report. [facility] Microscopic observation Gram stain Nom (Unsp spec) Moderate Polymorphonuclear leukocytes [facility] Comment on above: This is an appended report. These results have been appended to a previously preliminary verified report. Microscopic observation Gram stain Nom (Unsp spec) No Epithelial cells [facility] Comment on above: This is an appended report. These results have been appended to a previously preliminary verified report. Microscopic observation Gram stain Nom (Unsp spec) No organisms seen [facility] Comment on above: This is an appended report. These results have been appended to a previously preliminary verified report. [facility] Microscopic observation Gram stain Nom (Unsp spec) No Polymorphonuclear leukocytes [facility] Comment on above: This is an appended report. These results have been appended to a previously preliminary verified report. Microscopic observation Gram stain Nom (Unsp spec) No Epithelial cells [facility] Comment on above: This is an appended report. These results have been appended to a previously preliminary verified report. Microscopic observation Gram stain Nom (Unsp spec) No organisms seen [facility] Comment on above: This is an appended report. These results have been appended to a previously preliminary verified report. [facility] Microscopic observation Gram stain Nom (Unsp spec) Few Polymorphonuclear leukocytes [facility] Comment on above: This is an appended report. These results have been appended to a previously preliminary verified report. Bacteria identified Sterile body fluid culture Nom (Unsp spec)Ordered By: Aggie Aiken on 03-22-2023 Bacteria identified Cx Nom (Body fld) Rare Pasteurella multocida Abnormal [facility] Comment on above: Appropriate antibiot ic therapy for infections due to Eikenella and Pasteurella spp.would include an oral or parenteral Penicillin/Beta-lactamase inhibitor combination or a second or third generation Cephalosporin depending on the severity of the illn ess. The organism value for this result has been updated. These results have been appended to the previously preliminary verified report. Microscopic observation Gram stain Nom (Unsp spec) Many Polymorphonuclear leukocytes [facility] Comment on above: This is an appended report. These results have been appended to a previously preliminary verified report. Culture tissue with gram sta inon 03-22-2023 Bacteria identified Cx Nom (Tiss) No growth at 3 days [facility] Bacteria identified Cx Nom (Tiss) No growth at 3 days [facility] Bacteria identified Cx Nom (Tiss) No growth at 3 days [facility] Bacteria identified Cx Nom (Tiss) Rare Pasteurella multocida Abnormal [facility] Comment on above: Appropriate antibiot ic therapy for infections due to Eikenella and Pasteurella spp.would include an oral or parenteral Penicillin/Beta-lactamase inhibitor combination or a second or third generation Cephalosporin depending on the severity of the illn ess. The organism value for this result has been updated. These results have been appended to the previously preliminary verified report. Laboratory - Microbiology an d Antimicrobial susceptibilityOrdered By: Aggie Aiken on 03-22-2023 Microscopic observation Gram stain Nom (Unsp spec) No Epithelial cells [facility] Comment on above: This is an appended report. These results have been appended to a previously preliminary verified report. Microscopic observation Gram stain Nom (Unsp spec) No organisms seen [facility] Comment on above: This is an appended report. These results have been appended to a previously preliminary verified report. No Panel InformationOrdered By: Aggie Aiken on 03-22-2023 Interpretation and review of laboratory results Abnormal [facility] Basic metabolic 2000 panelon 03-21-2023 Anion gap [Moles/Vol] 8 mmol/L Normal 6-18 Kirsty nt [facility] Comment on above: Performed By: #### 3 4556-1 #### [facility] [address] [place] [address] Calcium [Mass/Vol] 9.1 mg/dL Normal 8.9-10.3 [facility] Comment on above: Performed By: #### 3 4556-1 #### [facility] [address] [place] [address] Chloride [Moles/Vol] 104 mmol/L Normal 98-107 Moun t [facility] Comment on above: Performed By: #### 3 4556-1 #### [facility] [address] [place] [address] CO2 [Moles/Vol] 25 mmol/L Normal 22-32 [facility] Comment on above: Performed By: #### 3 4556-1 #### [facility] [address] [facility] [place] [address] Creatinine [Mass/Vol] 0.92 mg/dL Normal 0.60-1.30 Kirsty [facility] Comment on above: Performed By: #### 3 4556-1 #### [facility] [address] [facility] [place] [address] GFR/1.73 sq M.predicted among non-blacks MDRD (S/P/Bld) [Vol rate/Area] 68 mL/min/{1.73_m2} Normal >=60 [facility] Comment on above: Result Comment: Effe ctive July 27, 2022, calculation based on the?Chronic Kidney Disease Epidemiology Collaboration (CKD-EPI) equation refit?without adjustment for race. Performed By: #### 3 4556-1 #### [facility] [address] [place] [address] Glucose [Mass/Vol] 95 mg/dL Normal 70-99 [facility] Comment on above: Performed By: #### 3 4556-1 #### [facility] [address] [place] [address] Potassium [Moles/Vol] 4.6 mmol/L Normal 3.6-5.1 Kirsty [facility] Comment on above: Performed By: #### 3 4556-1 #### [facility] [address] [place] [address] Sodium [Moles/Vol] 137 mmol/L Normal 136-145 [facility] Comment on above: Performed By: #### 3 4556-1 #### [facility] [address] [facility] [place] [address] Urea nitrogen [Mass/Vol] 22 mg/dL High 8-20 [facility] Comment on above: Performed By: #### 3 4556-1 #### [facility] [address] [facility] [place] [address] Urea nitrogen/Creatinine [Mass ratio] 23.9 mg/mg High 12.0-20.0 [facility] Comment on above: Performed By: #### 3 4556-1 #### [facility] ([facility]) [facility] [address] [place] [address] Anion gap [Moles/Vol] 8 mmol/L 6 - 18 [facility] Calcium [Mass/Vol] 9.1 mg/dL 8.9 - 10. 3 mg/dL [facility] Chloride [Moles/Vol] 104 mmol/L 98 - 10 7 mmol/L [facility] CO2 [Moles/Vol] 25 mmol/L 22 - 32 mmol/L [facility] Creatinine [Mass/Vol] 0.92 mg/dL 0.60 - 1.30 mg/dL [facility] GFR/1.73 sq M.predicted among non-blacks MDRD (S/P/Bld) [Vol rate/Area] 68 mL/min/{1.73_m2} - PINF [facility] Comment on above: Effective July 27, 2022, calculation based on the Chronic Kidney Disease Epidemiology Collaboration (CKD-EPI) equation refit without adjustment for race. Glucose [Mass/Vol] 95 mg/dL 70 - 99 mg/dL [facility] Interpretation and review of laboratory results Abnormal [facility] Potassium [Moles/Vol] 4.6 mmol/L 3.6 - 5.1 mmol/L [facility] Sodium [Moles/Vol] 137 mmol/L 136 - 145 mmol/L [facility] Urea nitrogen [Mass/Vol] 22 mg/dL High 8 - 20 mg/dL [facility] Urea nitrogen/Creatinine [Mass ratio] 23.9 mg/mg High 12.0 - 20.0 [facility] Glucose Auto test strip (Bld ) [Mass/Vol]on 03-21-2023 Glucose [Mass/Vol] 112 mg/dL High 70-99 [facility] Comment on above: Performed By: #### 6 36-1 #### [facility] [address] [place] [address] Glucose [Mass/Vol] 112 mg/dL High 70 - 99 mg/dL [facility] Interpretation and review of laboratory results Abnormal [facility] Glucose [Mass/Vol] 124 mg/dL High 70-99 [facility] Comment on above: Performed By: #### 6 35-3 #### [facility] ([facility]) [facility] [address] [place] [address] Glucose [Mass/Vol] 124 mg/dL High 70 - 99 mg/dL [facility] Interpretation and review of laboratory results Abnormal [facility] Glucose [Mass/Vol] 85 mg/dL Normal 70-99 [facility] Comment on above: Performed By: #### 6 36-1 #### [facility] [address] [place] [address] Glucose [Mass/Vol] 85 mg/dL 70 - 99 mg/dL [facility] Interpretation and review of laboratory results Normal [facility] Hemogram and platelets WO di fferential panel (Bld)on 03-21-2023 Basophils (Bld) [#/Vol] 0.04 10*3/uL Normal 0.00-0.20 [facility] Comment on above: Performed By: #### 1 1526-1 #### [facility] [place] [address] Basophils/100 WBC (Bld) 0.4 % Normal 0.0-2.0 [facility] Comment on above: Performed By: #### 1 1526-1 #### [facility] [address] [place] [address] Eosinophils (Bld) [#/Vol] 0.08 10*3/uL Normal 0.00-0.70 [facility] Comment on above: Performed By: #### 1 1526-1 #### [facility] [place] [address] Eosinophils/100 WBC (Bld) 0.7 % Normal 0.0-7.0 [facility] Comment on above: Performed By: #### 1 1526-1 #### [facility] [address] [place] [address] Erythrocyte distribution width (RBC) [Ratio] 13.6 % Normal 11.0-14.8 [facility] Comment on above: Performed By: #### 1 1526-1 #### [facility] [address] [place] [address] Hematocrit (Bld) [Volume fraction] 36.0 % Normal 34.3-47.9 [facility] Comment on above: Performed By: #### 1 1526-1 #### [facility] [address] [place] [address] Hemoglobin (Bld) [Mass/Vol] 11.6 g/dL Low 12.0-16.0 [facility] Comment on above: Performed By: #### 1 1526-1 #### [facility] [address] [place] [address] Immature granulocytes (Bld) [#/Vol] 0.07 10*3/uL Normal 0.00-0.10 [facility] Comment on above: Performed By: #### 1 1526-1 #### [facility] [address] [place] [address] Immature granulocytes/100 WBC (Bld) 0.7 % Normal 0.0-1.2 [facility] Comment on above: Performed By: #### 1 1526-1 #### [facility] [address] [place] [address] Lymphocytes (Bld) [#/Vol] 1.70 10*3/uL Normal 1.00-4.80 [facility] Comment on above: Performed By: #### 1 1526-1 #### [facility] [address] [place] [address] Lymphocytes/100 WBC (Bld) 15.8 % Low 17.9-49.6 [facility] Comment on above: Performed By: #### 1 1526-1 #### [facility] [address] [place] [address] MCH 28.4 pcg Normal 27.0-34.0 [facility] Comment on above: Performed By: #### 1 1526-1 #### [facility] [address] [place] [address] MCHC (RBC) [Mass/Vol] 32.2 g/dL Normal 30.8-35.3 Kirsty [facility] Comment on above: Performed By: #### 1 1526-1 #### [facility] [address] [place] [address] MCV (RBC) [Entitic vol] 88.0 fL Normal 80.0-97.0 M [facility] Comment on above: Performed By: #### 1 1526-1 #### [facility] [address] [place] [address] Monocytes (Bld) [#/Vol] 1.02 10*3/uL High 0.00-0.90 [facility] Comment on above: Performed By: #### 1 1526-1 #### [facility] [address] [place] [address] Monocytes/100 WBC (Bld) 9.5 % Normal 0.0-12.0 M [facility] Comment on above: Performed By: #### 1 1526-1 #### [facility] [address] [place] [address] Neutrophils Absolute 7.84 K/mcL High 1.80-7.70 [facility] Comment on above: Performed By: #### 1 1526-1 #### [facility] [address] [place] [address] Neutrophils/100 WBC (Bld) 72.9 % Normal 38.1-75.5 [facility] Comment on above: Performed By: #### 1 1526-1 #### [facility] [address] [place] [address] Platelet mean volume (Bld) [Entitic vol] 10.4 fL Normal 6.2-12.1 [facility] Comment on above: Performed By: #### 1 1526-1 #### [facility] [address] [place] [address] Platelets (Bld) [#/Vol] 300 10*3/uL Normal 142-424 [facility] Comment on above: Performed By: #### 1 1526-1 #### [facility] [address] [place] [address] RBC (Bld) [#/Vol] 4.09 10*6/uL Normal 3.74-5.34 [facility] Comment on above: Performed By: #### 1 1526-1 #### [facility] [address] [place] [address] WBC (Bld) [#/Vol] 10.8 10*3/uL High 4.6-10.2 [facility] Comment on above: Performed By: #### 1 1526-1 #### [facility] [address] [place] [address] Basophils (Bld) [#/Vol] 0.04 10*3/uL [facility] Basophils/100 WBC (Bld) 0.4 % 0.0 - 2.0 % [facility] Eosinophils (Bld) [#/Vol] 0.08 10*3/uL [facility] Eosinophils/100 WBC (Bld) 0.7 % 0.0 - 7.0 % [facility] Erythrocyte distribution width (RBC) [Ratio] 13.6 % 11.0 - 14.8 % [facility] Hematocrit (Bld) [Volume fraction] 36.0 % 34.3 - 47.9 % [facility] Hemoglobin (Bld) [Mass/Vol] 11.6 g/dL Low 12.0 - 16.0 g/dL [facility] Immature granulocytes (Bld) [#/Vol] 0.07 10*3/uL [facility] Immature granulocytes/100 WBC (Bld) 0.7 % 0.0 - 1.2 % [facility] Interpretation and review of laboratory results Abnormal [facility] Lymphocytes (Bld) [#/Vol] 1.70 10*3/uL [facility] Lymphocytes/100 WBC (Bld) 15.8 % Low 17.9 - 49.6 % [facility] MCH (RBC) [Entitic mass] 28.4 pg [facility] MCHC (RBC) [Mass/Vol] 32.2 g/dL 30.8 - 35.3 g/dL [facility] MCV (RBC) [Entitic vol] 88.0 fL [facility] Monocytes (Bld) [#/Vol] 1.02 10*3/uL High [facility] Monocytes/100 WBC (Bld) 9.5 % 0.0 - 12.0 % [facility] Neutrophils (Bld) [#/Vol] 7.84 10*3/uL High [facility] Neutrophils/100 WBC (Bld) 72.9 % 38.1 - 75.5 % [facility] Platelet mean volume (Bld) [Entitic vol] 10.4 fL [facility] Platelets (Bld) [#/Vol] 300 10*3/uL [facility] RBC (Bld) [#/Vol] 4.09 10*6/uL [facility] WBC (Bld) [#/Vol] 10.8 10*3/uL High [facility] Basic metabolic 2000 panelon 03-20-2023 Anion gap [Moles/Vol] 11 mmol/L 6 - 18 Tri [facility] Calcium [Mass/Vol] 9.0 mg/dL 8.9 - 10. 3 mg/dL [facility] Chloride [Moles/Vol] 104 mmol/L 98 - 10 7 mmol/L [facility] CO2 [Moles/Vol] 23 mmol/L 22 - 32 mmol/L [facility] Creatinine [Mass/Vol] 1.03 mg/dL 0.60 - 1.30 mg/dL [facility] GFR/1.73 sq M.predicted among non-blacks MDRD (S/P/Bld) [Vol rate/Area] 60 mL/min/{1.73_m2} - PINF [facility] Comment on above: Effective July 27, 2022, calculation based on the Chronic Kidney Disease Epidemiology Collaboration (CKD-EPI) equation refit without adjustment for race. Glucose [Mass/Vol] 106 mg/dL High 70 - 99 mg/dL [facility] Interpretation and review of laboratory results Abnormal [facility] Potassium [Moles/Vol] 4.9 mmol/L 3.6 - 5.1 mmol/L [facility] Sodium [Moles/Vol] 138 mmol/L 136 - 145 mmol/L [facility] Urea nitrogen [Mass/Vol] 31 mg/dL High 8 - 20 mg/dL [facility] Urea nitrogen/Creatinine [Mass ratio] 30.1 mg/mg High 12.0 - 20.0 [facility] Anion gap [Moles/Vol] 11 mmol/L Normal 6-18 [facility] Comment on above: Performed By: #### 6 35-3 #### [facility] [place] [facility] [address] [place] [address] Calcium [Mass/Vol] 9.0 mg/dL Normal 8.9-10.3 [facility] Comment on above: Performed By: #### 6 35-3 #### [facility] [place] [facility] [address] [place] [address] Chloride [Moles/Vol] 104 mmol/L Normal 98-107 [facility] Comment on above: Performed By: #### 6 35-3 #### [facility] [place] [facility] [address] [place] [address] CO2 [Moles/Vol] 23 mmol/L Normal 22-32 [facility] Comment on above: Performed By: #### 6 35-3 #### [facility] [place] [facility] [address] [place] [address] Creatinine [Mass/Vol] 1.03 mg/dL Normal 0.60-1.30 [facility] Comment on above: Performed By: #### 6 35-3 #### [facility] [place] [facility] [address] [place] [address] GFR/1.73 sq M.predicted among non-blacks MDRD (S/P/Bld) [Vol rate/Area] 60 mL/min/{1.73_m2} Normal >=60 [facility] Comment on above: Result Comment: Effe ctive July 27, 2022, calculation based on the?Chronic Kidney Disease Epidemiology Collaboration (CKD-EPI) equation refit?without adjustment for race. Performed By: #### 6 35-3 #### [facility] [place] [facility] [address] [place] [address] Glucose [Mass/Vol] 106 mg/dL High 70-99 [facility] Comment on above: Performed By: #### 6 35-3 #### [facility] [place] [facility] [address] [place] [address] Potassium [Moles/Vol] 4.9 mmol/L Normal 3.6-5.1 [facility] Comment on above: Performed By: #### 6 35-3 #### [facility] [place] [facility] [address] [place] [address] Sodium [Moles/Vol] 138 mmol/L Normal 136-145 [facility] Comment on above: Performed By: #### 6 35-3 #### [facility] [place] [facility] [address] [place] [address] Urea nitrogen [Mass/Vol] 31 mg/dL High 8-20 [facility] Comment on above: Performed By: #### 6 35-3 #### [facility] [place] [facility] [address] [place] [address] Urea nitrogen/Creatinine [Mass ratio] 30.1 mg/mg High 12.0-20.0 [facility] Comment on above: Performed By: #### 6 35-3 #### [facility] [place] [facility] [address] [place] [address] Glucose Auto test strip (Bld ) [Mass/Vol]on 03-20-2023 Glucose [Mass/Vol] 109 mg/dL High 70 - 99 mg/dL [facility] Interpretation and review of laboratory results Abnormal [facility] Glucose [Mass/Vol] 109 mg/dL High 70-99 [facility] Comment on above: Performed By: #### 1 7856-6 #### [facility] [place] [facility] [address] [place] [address] Glucose [Mass/Vol] 89 mg/dL Normal 70-99 [facility] Comment on above: Performed By: #### 6 36-1 #### [facility] [place] [facility] [address] [place] [address] Glucose [Mass/Vol] 89 mg/dL 70 - 99 mg/dL [facility] Interpretation and review of laboratory results Normal [facility] Glucose [Mass/Vol] 106 mg/dL High 70-99 [facility] Comment on above: Performed By: #### 6 35-3 #### [facility] [place] [facility] [address] [place] [address] Glucose [Mass/Vol] 106 mg/dL High 70 - 99 mg/dL [facility] Interpretation and review of laboratory results Abnormal [facility] Glucose [Mass/Vol] 116 mg/dL High 70-99 [facility] Comment on above: Performed By: #### 6 35-3 #### [facility] [place] [facility] [address] [place] [address] Glucose [Mass/Vol] 116 mg/dL High 70 - 99 mg/dL [facility] Interpretation and review of laboratory results Abnormal [facility] Hemogram and platelets WO di fferential panel (Bld)on 03-20-2023 Basophils (Bld) [#/Vol] 0.02 10*3/uL Normal 0.00-0.20 [facility] Comment on above: Performed By: #### 6 35-3 #### [facility] [place] [facility] [address] [place] [address] Basophils/100 WBC (Bld) 0.2 % Normal 0.0-2.0 [facility] Comment on above: Performed By: #### 6 35-3 #### [facility] [place] [facility] [address] [place] [address] Eosinophils (Bld) [#/Vol] 0.00 10*3/uL Normal 0.00-0.70 [facility] Comment on above: Performed By: #### 6 35-3 #### [facility] [place] [facility] [address] [place] [address] Eosinophils/100 WBC (Bld) 0.0 % Normal 0.0-7.0 [facility] Comment on above: Performed By: #### 6 35-3 #### [facility] [place] [facility] [address] [place] [address] Erythrocyte distribution width (RBC) [Ratio] 13.9 % Normal 11.0-14.8 [facility] Comment on above: Performed By: #### 6 35-3 #### [facility] [place] [facility] [address] [place] [address] Hematocrit (Bld) [Volume fraction] 38.9 % Normal 34.3-47.9 [facility] Comment on above: Performed By: #### 6 35-3 #### [facility] [place] [facility] [address] [place] [address] Hemoglobin (Bld) [Mass/Vol] 12.2 g/dL Normal 12.0-16.0 [facility] Comment on above: Performed By: #### 6 35-3 #### [facility] [place] [facility] [address] [place] [address] Immature granulocytes (Bld) [#/Vol] 0.08 10*3/uL Normal 0.00-0.10 [facility] Comment on above: Performed By: #### 6 35-3 #### [facility] [place] [facility] [address] [place] [address] Immature granulocytes/100 WBC (Bld) 0.7 % Normal 0.0-1.2 [facility] Comment on above: Performed By: #### 6 35-3 #### [facility] [place] [facility] [address] [place] [address] Lymphocytes (Bld) [#/Vol] 1.07 10*3/uL Normal 1.00-4.80 [facility] Comment on above: Performed By: #### 6 35-3 #### [facility] [place] [facility] [address] [place] [address] Lymphocytes/100 WBC (Bld) 9.3 % Low 17.9-49.6 [facility] Comment on above: Performed By: #### 6 35-3 #### [facility] [place] [facility] [address] [place] [address] MCH 28.2 pcg Normal 27.0-34.0 [facility] Comment on above: Performed By: #### 6 35-3 #### [facility] [place] [facility] [address] [place] [address] MCHC (RBC) [Mass/Vol] 31.4 g/dL Normal 30.8-35.3 [facility] Comment on above: Performed By: #### 6 35-3 #### [facility] [place] [facility] [address] [place] [address] MCV (RBC) [Entitic vol] 89.8 fL Normal 80.0-97.0 M [facility] Comment on above: Performed By: #### 6 35-3 #### [facility] [place] [facility] [address] [place] [address] Monocytes (Bld) [#/Vol] 0.61 10*3/uL Normal 0.00-0.90 [facility] Comment on above: Performed By: #### 6 35-3 #### [facility] [place] [facility] [address] [place] [address] Monocytes/100 WBC (Bld) 5.3 % Normal 0.0-12.0 M [facility] Comment on above: Performed By: #### 6 35-3 #### [facility] [address] [place] [address] Neutrophils Absolute 9.71 K/mcL High 1.80-7.70 [facility] Comment on above: Performed By: #### 6 35-3 #### [facility] [place] [facility] [address] [place] [address] Neutrophils/100 WBC (Bld) 84.5 % High 38.1-75.5 [facility] Comment on above: Performed By: #### 6 35-3 #### [facility] [address] [place] [address] Platelet mean volume (Bld) [Entitic vol] 11.2 fL Normal 6.2-12.1 [facility] Comment on above: Performed By: #### 6 35-3 #### [facility] [address] [place] [address] Platelets (Bld) [#/Vol] 270 10*3/uL Normal 142-424 [facility] Comment on above: Performed By: #### 6 35-3 #### [facility] [address] [place] [address] RBC (Bld) [#/Vol] 4.33 10*6/uL Normal 3.74-5.34 [facility] Comment on above: Performed By: #### 6 35-3 #### [facility] [address] [place] [address] WBC (Bld) [#/Vol] 11.5 10*3/uL High 4.6-10.2 [facility] Comment on above: Performed By: #### 6 35-3 #### [facility] [place] [facility] [address] [place] [address] Basophils (Bld) [#/Vol] 0.02 10*3/uL [facility] Basophils/100 WBC (Bld) 0.2 % 0.0 - 2.0 % [facility] Eosinophils (Bld) [#/Vol] 0.00 10*3/uL [facility] Eosinophils/100 WBC (Bld) 0.0 % 0.0 - 7.0 % [facility] Erythrocyte distribution width (RBC) [Ratio] 13.9 % 11.0 - 14.8 % [facility] Hematocrit (Bld) [Volume fraction] 38.9 % 34.3 - 47.9 % [facility] Hemoglobin (Bld) [Mass/Vol] 12.2 g/dL 12.0 - 16.0 g/dL [facility] Immature granulocytes (Bld) [#/Vol] 0.08 10*3/uL [facility] Immature granulocytes/100 WBC (Bld) 0.7 % 0.0 - 1.2 % [facility] Interpretation and review of laboratory results Abnormal [facility] Lymphocytes (Bld) [#/Vol] 1.07 10*3/uL [facility] Lymphocytes/100 WBC (Bld) 9.3 % Low 17.9 - 49.6 % [facility] MCH (RBC) [Entitic mass] 28.2 pg [facility] MCHC (RBC) [Mass/Vol] 31.4 g/dL 30.8 - 35.3 g/dL [facility] MCV (RBC) [Entitic vol] 89.8 fL T [facility] Monocytes (Bld) [#/Vol] 0.61 10*3/uL [facility] Monocytes/100 WBC (Bld) 5.3 % 0.0 - 12.0 % [facility] Neutrophils (Bld) [#/Vol] 9.71 10*3/uL High [facility] Neutrophils/100 WBC (Bld) 84.5 % High 38.1 - 75.5 % [facility] Platelet mean volume (Bld) [Entitic vol] 11.2 fL [facility] Platelets (Bld) [#/Vol] 270 10*3/uL [facility] RBC (Bld) [#/Vol] 4.33 10*6/uL [facility] WBC (Bld) [#/Vol] 11.5 10*3/uL High [facility] Pathology studyOrdered By: Susi Dietrich on 03-20-2023 Citation Jeff (Reference lab test) l1gnlYZhZAXmo5dmZKPyfSAx ZzEwMzNcZnRuYmpcdWMxIHtc rcYjYFoze5TjQ3WxGoNcVGyg bnNpXGRlZmxhbmcxMDMzXGZ0 sqDoIRKkICeiARUjGPmaFw6g xVGsdWqsFhBcTUWkn8oqvcQA TPcnNXJVZFg7f8spEJZyQdL4 vEAuQGvmU6ebemFxjBQbU4Io p8VoUXx1eW31OBWtzH4plCDu QSeeldNxZgY4EWhiDWPlIcH0 KMYznUCgERHbI6ibVOCcLFzv rrCghrO8GJKgoXIvVAM8FHMi APEgQ7IaJO4vFMYqyCJeZGp7 f4yaoRdsKOQzHVM3g8uaHIle dbAaPZ6vgy3jvPx5n8sgbrNh GNBuJUNtpIHYIKIkF3CdfCve Pf9gyGe3rLcgKnpwLPI4Slg0 RO0ecb61bkj2tAosMAZlfvan JzU7IWjmANXgkhxnWVw1AWjm CKUiwLM6YRDnqXMkM6JoQCAm YH0ngrs4YZL8NDvkTIFhSlD7 QCYpnUDuPNZzyDfoRNwjm254 GGK0DjCdGG1jR7Cpf8P2kA4b kRMiIGLekAGkZeWzDBCzny7k dLBeOQamt8BfNYG8scO6pXCe xWGbUSOkRC76Kqqjo3RbPkun NMB0YBHchtEcr4Pfy8tdSvGq sbBdZ3fpD4WhHQEyPPEgSUNt IsRefwUuk9Bzn9HcxVAgyWf6 m1paEQYbKSByfSfea7llJYW2 RMRgJ4A6dBDuq9smETmjWDJu fBP8mnI0RGQymJMyQ7EhmA0t ESWqDX0uxps8t7ofHQZ4IHfe SJThOjU2esK0NCCtoERgWOOw cMnmQJwux734JLO6CqTmTKZx a3GdB6ZxtBhjV16vyEddK89c EITgxUcmjL0spLvtmT2pMyEz ZnMyNFxxbFxwbGFpblxmMVxm wzX7BVsuvehcKCVuZDqfU3kt KbFkEOMcwCcbJMude1TnXBGh ZGHvJranjxS1BDgkEC92JNpi jFQcd9pkv8TrP3qbjUliuYG7 LC2wPLYvXCAfWIsiu1RhbW5x rYLqNEUvzlW5fSEaeF03TMVb nnZ0YLQrx05pp8IyuAdmvsDv QOKzFLlwtyPrILChx7VnEUKj RYBkTQ17isWzF1JecPRyTKBj wvHrITlasY3us6l6CGrwSb9u DTojt5VaaGOfxJWqqOS5FPCc k4DnVsQdhfXrkJWtgxSxOS1g RQNdjUWjtjPyWWA2SIQgIGVQ GrVzGHGmt3DyPH5xPLMpyUxq WGKbhW3iw0KuDQZqc67nNIDj ZSBGREEgaGFzIGRldGVybWlu ZWQgdGhhdCBzdWNoIGNsZWFy QF5gDIRnrtMecLIdi0UrrUEg udJgj3SsmsEkBYNqHJB4MiYZ qARzISA8DUS4pvFrsvKlcLJy KIIsc9HsJ7cslyieEWofnAVh jZ7hBQHfPY7rVBVfg0GxSTUa g6WmJuGassLiMRLsZGMwBVCi kC93EQD9nAuafBuiiiQuAA0p IFFozyZzMTBkAFKgxS6mPXrs unNzDDCacoS9c2N3NYguNJCy mnGxBamwVID7gfUhTEDgi6Qu EOyeS2xgK37voHkzhWe7nAN4 JAL6mW1qUCZlSRLvACIzTFSI yYxflRZujMVNREGbwcE8s1J6 GWfsiJGhchZcNG40EIGkOJ5t nLZmrBDly3BjPVz5RN9wIUkw FHXeqjBzq9qfCWNkk5ipKBNf er7hnjrmiMMmupKfH0Eetox1 zU5wcGMlKQFfav28LTX2HgKl BG3cxIczSUXzED1xRTTgL0fu xW1zdaz1PpMmm2vslZQkUULu vOHfGcWqPPAdAFXyc0xvOWVl bGFuZzEwMzNcZnRuYmpcdWMx EQWlSlZhl4eya936tBYsm4be HPEdEnR5uVCvKOQtR59uBPGZ R633ZVLeVCgmt9ybh2OlXSRp iYZrk9P3HNYSGFnqOUNNXYp3 nHgbR33zw9W6EqfwD0xfJYPe WVQdC2UmLI1aGATrEqt2ZRA9 WSU4SCKnMVU8GFwqCUOrDTXc Tvi1HQX7JHdfgeMmEZKpMDpx IEKyBURnSIWaoRNuQPBfY7qg ZWQwXGdyZWVuMFxibHVlMCA7 oHayc7Z5fJResHZzaCvaWoDg DyEtBsHVi5DgAXn6cAwlM2Ql KHDgEcS1dNFfXBOnMJlwHKOx DZVkenZ2wX24UZknfpU7cZCp g9Ska74qm844sL0ldREdGVA1 IXHuUFNlpWQeAWUjUBL0WGTn qZQhU2quTSIcVW8uvcisFUwe FXkfZOWxmUI8OPOqtFKkC7Kw EWGwMRapOLJyael7QfWaBs2d yRLibQkgZQljr8vps7sdsNYm Gen6UZZvKqRtBvuiWFxjc3Ob k6zuKRWghv0qROT3dDZybPnd q8Z2uLCnLCVuwCEellFqNMYh NwI7FXiwQK7glv48AFGxFKO7 qn5seFXqcWqmkyKpeOLlACrr A1GtCGSmx934JFXdC4QfOXQr a6S3iqDrShFsAETdqKR8vgK0 UGGiBAu1gMAtsxZ9fsIovDUf E1vivC5qGHZfTV7bwfqvc2aw PZytERqmNIJmtZS4ovJ6AJXk zGIhD7WxuC0uEALtDBtdYSJf kbj0CwXwQy9sqHFgoOmrGKna YmtwYWdlXHBnbmNvbnRccGdu ZGVjXHBsYWluXHBsYWluXGYw OZIaXnGqsElzvOdhnY7aYzRs FvOlJBpiCP7bZUHeD7braEYq RDFyMFZvW4gfNcLdmK2kzFiy MVxjZjJcZnMxOFxpIFRoZSB0 CGLrhbfjWLunI70hqD4fBM13 VBjamuNrCHMej6JfZXJnNDAc KJidISSgoxSlKRwdiC0kr9l2 XIxmEd6jTUPlqhsdKAU9CnDd TT33UtwazLTzCKDYpdQeWJJu bHVtYnVzLCBPaGlvIDQzMjI5 RyCYuHMos3Cxv1PgMsXhaFYr uP1ryDtjmwK6FOIbeNWxFc3b bWVkLlxwbGFpblxmMVxmczE4 RDuowcvuJCXrWMzhA0bkBlVx IBTsoMmmLZxjl3WrRYLpZADu Z1ldbbH3IKuifVFhALLpgi23 fQ== [facility] Work Phone: Microscopic description Jeff (Endomyocardium) q2sknHBdUBSzpLXBFADaAJVo CF4bbGtozOy1zVhyOPXjtuD2 tOAnQFdfw1whNJX7l8amaqKF HubgPQIuCK0yEBxkJGMzWR6y ZmUwXGRlZmYyXHBhcGVydzEy SlVrCUXdfYPomHZ1SAUaVY8o smsfPErwQCsdUBKnurA2QELz nUOyS8ZlLHCyCG4szkeuQRC0 FKCTIaftMf7gyZDykHDTLrnc ZjFcZmNoYXJzZXQwXGZuaWwg CLQmWCp9oI5Ec9hxCcjgH1nf otQxbVHhIe8jzHBAEBfvZEXI DVo9tQ7GUQIgN1NoXK4Cg5bx BATwvRYuHMU3BCytg2wpQPce EQK7EJJqIDGlMAJeHB4SIwVx HLDeTDPrOPrrAeT0DVz5EZBA TNUhYYI0ReTcTjJ8JXj4SVJr YX2lLMwyiWIsKFukGsguQYex T329RVwtVXBsS8GoT5FwSMja ZyBcXGlkIDUxMDAyIFxcZGIg C9KTTHIwTeIuFtX6ZTXfLZk9 EVg7KG4QOoGzNZSsOtW7WeH6 HAIbFRs7GRqmKI6PXXKcFUB6 TqjcMIHmEQW3KPErZCk9HQTj FBjwttPrGEkdHxkcTIoyE45n cGFyZCANClxwbGFpblxmMVxm czIwIEEuIEtuZWUsIExlZnQs DVmwFFFzUPrasYCqDQ0MIFYh wdAcLTkkwUzveT4sXfYgUfWd MFxwbGFpblxsdHJjaFxmczIy LZJtoRYDQAR8RV7kXJZJRprz jDOkIHXtyHhsUKuscA8aLTEm WhRxEPBiD8qvGEOgAT8VUNWs SIEiFeZsViAdYWs7TDHzxC8r Yv8gcSIznZ1nwXDqQLwqZSH0 qNMrRPKdMCSkKRGoCA67H6Tr gpKvGYvlZA2xQRUfEUs0gY4l YWxseSBsYWJlbGVkICJsZWZ0 IHvoOTVqOWvgALTnmZ3onVxc zsLoXsLwmoTpC7XuBCPyjDXb EDqqgCuzjrN7cmJ9FU6wW6Qk dCNfkSSso80htUPsDL6khYOp tNgtm2WdXMemgYzuoSLtEJTo aWduYXRlZCBvcmllbnRhdGlv biAyLjcgeCAxLjUgeCAwLjUg U86uISQMBEG1wE2ljD8zYQWk mwJtxPEcMEP4UQ4rzJKiuR47 HRZpXPMhug1gevM3XTEptAFf h7QuIWN0jRArxDTdQIXgNGne dBhrvy2ma5R3jY21eeAfgZOq aOYqx0UoWMSfWCYhXGeeEW92 aWZpZWQuICBSZXByZXNlbnRh yUx9MXUkDFR4rA3tdlAztzFa g2BdlFr7pAXwRBwdCUFrx3la S6jdJFFwg6GyvDAfHyFcEWmA UCkNClxlcGljTmVzdERvYzB7 BDAxkZMnUFH9CQ5ocEhpYJJk J6JrV4IjjnG2IJThtfYKSprq QFWwWX8YMQRvBVOsIhZkJYr8 [employer] Work Phone: Pathology report final diagnosis Narrative n8zljZYrBKTqoCEdWKFtQikr uuQjACQyxKViY5JfrfppRNlx RF2xUL3oiPzmtSUurDYsNXBo TqPef8jgj101bRNlo0peUOUL efxsyLz6kIxnK91rd7K9Sjdm N4lkZWQqVCkcVTIiDBoykHHc FGg3DGFpzVGtvfIwDpZkCARx cYTzfIL8TQBoJV5uvwznRAoy BGojVLQzhdA1MSJzeZQaC6Dm EOPhKA5brbojPIA3RLcnPYNj BVV7CdXxXAWcg2Yceog9XnTj yMj1v1qmYOZaEGOquBysf9lc AND1EKHmwWTzA7osiQ3fTFEz IX9oejozq5laOFktUOswKHPo rWD0vzY2KOCffKSoR7SnrL6e WPBkHKCsxzQctSjrsN3gN6Cd ZDURRSO4VEwmQVYvDOTgc3St tEfwbBUrNQI1gk64uHAcIZmj iRzftKCzm3GvMSMagFYcMKgb DukwtV0akOukmg0LYL9xSYjk JEW2KVXvrUycdhY8SQBtfoHh aApdEPNxd0LfZNTdAIgwLeyw QDTfYv2mrJCrvQZdz7Q9sCZc IAa9wPLgl0T6bXiqTAzhWerd yC9zcQdbdxXdgpFsqhChMU97 LlxwYXJ9 [employer] Phone: [employer] Phone: XR Knee 1-2 Views Lefton Status post left tot al knee arthroplasty. -------- FINAL REPORT -------- Dictated By: Ania Dumont Dictated Date: 03/20/2023 07:17 Assigned Physician: Ania Dumont Reviewed and Electronically Signed By: Ania Dumont Signed Date: 03/20/2023 07:18 Workstation ID: [id number] Transcribed By: Self Edit Transcribed Date: 03/20/2023 07:17 POWERSCRIBE EXAM: XR KNEE 1-2 EWS LEFT HISTORY: postoperative care COMPARISON: 10/02/2022. TECHNIQUE: Frontal and lateral views of the left knee. FINDINGS: Status post left total knee arthroplasty. Hardware is intact. Alignment is within expected limits. Surgical drain and skin almita are noted. POWERSAnia Olvera MD - 03/20/2023 EXAM: XR KNEE 1-2 VIEWS LEFT HISTORY: postoperative care COMPARISON: 10/02/2022. TECHNIQUE: Frontal and lateral views of the left knee. FINDINGS: Status post left total knee arthroplasty. Hardware is intact. Alignment is within expected limits. Surgical drain and skin almita are noted. IMPRESSION: Status post left total knee arthroplasty. -------- FINAL REPORT -------- Dictated By: Ania Dumont Dictated Date: 03/20/2023 07:17 Assigned Physician: Ania Dumont Reviewed and Electronically Signed By: Ania Dumont Signed Date: 03/20/2023 07:18 Workstation ID: [id number] Transcribed By: Self Edit Transcribed Date: 03/20/2023 07:17 [employer] XR Knee 1-2 Views LeftOrdere d By: Ania Dumont on 03-20-2023 [employer] Work Phone: Bacteria Spec Anaerobe Culto n 03-19-2023 Bacteria identified Anaer cx Nom (Unsp spec) Culture, Anaerobic Status = F No anaerobes grown after [address] [facility] Comment on above: Performed By: #### 3 4556-1 #### [facility] ([facility] [address] [place] [address] Performed By: #### 6 35-3 #### [facility] ([facility]) [facility] [address] [place] [address] Bacteria identified Anaer cx Nom (Unsp spec) Culture, Anaerobic Status = F No anaerobes grown after [address] [facility] Comment on above: Performed By: #### 6 35-3 #### [facility] ([facility]) [facility] [address] [place] [address] Bacteria identified Anaer cx Nom (Unsp spec) Culture, Anaerobic Status = F No anaerobes grown after [address] 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 The organism value for this result has been updated. These results have been appended to the previously preliminary verified report. Gram Stain Result Status = F Many Polymorphonuclear leukocytes This is an appended report. These results have been appended to a previously preliminary verified report. No Epithelial cells This is an appended report. These results have been appended to a previously preliminary verified report. No organisms seen This is an appended report. These results have been appended to a previously preliminary verified report. Invalid Interpretation Code [facility] Comment on above: Performed By: #### 6 36-1 ####[facility] ([facility]) [id number] [place] [address] Bacteria Tiss Culton 023 Bacteria identified Cx Nom (Tiss) Culture, Tissue Status = C No growth at 3 days Gram Stain Result Status = F No Polymorphonuclear leukocytes This is an appended report. These results have been appended to a previously preliminary verified report. No Epithelial cells This is an appended report. These results have been appended to a previously preliminary verified report. No organisms seen This is an appended report. These results have been appended to a previously preliminary verified report. Normal [facility] Comment on above: Performed By: #### 6 35-3 #### [facility] ([facility]) LAB [address] [place] [address] Bacteria identified Cx Nom (Tiss) Culture, Tissue Status = C No growth at 3 days Gram Stain Result Status = F Moderate Polymorphonuclear leukocytes This is an appended report. These results have been appended to a previously preliminary verified report. No Epithelial cells This is an appended report. These results have been appended to a previously preliminary verified report. No organisms seen This is an appended report. These results have been appended to a previously preliminary verified report. Normal 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 The organism value for this result has been updated. These results have been appended to the previously preliminary verified report. Gram Stain Result Status = F Few Polymorphonuclear leukocytes This is an appended report. These results have been appended to a previously preliminary verified report. No Epithelial cells This is an appended report. These results have been appended to a previously preliminary verified report. No organisms seen This is an appended report. These results have been appended to a previously preliminary verified report. Invalid Interpretation Code [facility] Comment on above: Performed By: #### 1 1526-1 #### [facility] [address] [place] [address] Bacteria identified Cx Nom (Tiss) Culture, Tissue Status = C No growth at 3 days Gram Stain Result Status = F No Polymorphonuclear leukocytes This is an appended report. These results have been appended to a previously preliminary verified report. No Epithelial cells This is an appended report. These results have been appended to a previously preliminary verified report. No organisms seen This is an appended report. These results have been appended to a previously preliminary verified report. Normal [facility] Comment on above: Performed By: #### 3 4556-1 #### [facility] ([facility] [address] [facility] [place] [address] Basic metabolic 2000 panelon 03-19-2023 Anion gap [Moles/Vol] 9 mmol/L Normal 6-18 Kirsty [facility] Comment on above: Performed By: #### 6 35-3 #### [facility] [place] ([facility]) [facility] [address] [place] [address] Calcium [Mass/Vol] 10.2 mg/dL Normal 8.9-10.3 [facility] Comment on above: Performed By: #### 6 35-3 #### [facility] [place] ([facility] [address] [place] [address] Chloride [Moles/Vol] 104 mmol/L Normal 98-107 M[facility] Comment on above: Performed By: #### 6 35-3 #### [facility] [place] [address] [place] [address] CO2 [Moles/Vol] 27 mmol/L Normal 22-32 [facility] Comment on above: Performed By: #### 6 35-3 #### [facility] [place] [facility] [address] [place] [address] Creatinine [Mass/Vol] 1.10 mg/dL Normal 0.60-1.30 Kirsty [facility] Comment on above: Performed By: #### 6 35-3 #### [facility] [place] ([facility] LAB [address] [place] [address] GFR/1.73 sq M.predicted among non-blacks MDRD (S/P/Bld) [Vol rate/Area] 55 mL/min/{1.73_m2} Low >=60 [facility] Comment on above: Result Comment: Effe ctive July 27, 2022, calculation based on the?Chronic Kidney Disease Epidemiology Collaboration (CKD-EPI) equation refit?without adjustment for race. Performed By: #### 6 35-3 #### [facility] [place] ([facility] [address] [place] [address] Glucose [Mass/Vol] 97 mg/dL Normal 70-99 [facility] Comment on above: Performed By: #### 6 35-3 #### [facility] [place] [facility] [address] [place] [address] Potassium [Moles/Vol] 4.4 mmol/L Normal 3.6-5.1 Kirsty [facility] Comment on above: Performed By: #### 6 35-3 #### [facility] [place] ([facility] [address] [place] [address] Sodium [Moles/Vol] 140 mmol/L Normal 136-145 [facility] Comment on above: Performed By: #### 6 35-3 #### [facility] [place] ([facility] [address] [place] [address] Urea nitrogen [Mass/Vol] 36 mg/dL High 8-20 [facility] Comment on above: Performed By: #### 6 35-3 #### [facility] [place] [facility] [address] [place] [address] Urea nitrogen/Creatinine [Mass ratio] 32.7 mg/mg High 12.0-20.0 [facility] Comment on above: Performed By: #### 6 35-3 #### [facility] [place] ([facility] [address] [place] [address] Anion gap [Moles/Vol] 9 mmol/L 6 - 18 [facility] Calcium [Mass/Vol] 10.2 mg/dL 8.9 - 10. 3 mg/dL [facility] Chloride [Moles/Vol] 104 mmol/L 98 - 10 7 mmol/L [facility] CO2 [Moles/Vol] 27 mmol/L 22 - 32 mmol/L [facility] Creatinine [Mass/Vol] 1.10 mg/dL 0.60 - 1.30 mg/dL [facility] GFR/1.73 sq M.predicted among non-blacks MDRD (S/P/Bld) [Vol rate/Area] 55 mL/min/{1.73_m2} Low - PINF [facility] Comment on above: Effective July 27, 2022, calculation based on the Chronic Kidney Disease Epidemiology Collaboration (CKD-EPI) equation refit without adjustment for race. Glucose [Mass/Vol] 97 mg/dL 70 - 99 mg/dL [facility] Interpretation and review of laboratory results Abnormal [facility] Potassium [Moles/Vol] 4.4 mmol/L 3.6 - 5.1 mmol/L [facility] Sodium [Moles/Vol] 140 mmol/L 136 - 145 mmol/L [facility] Urea nitrogen [Mass/Vol] 36 mg/dL High 8 - 20 mg/dL [facility] Urea nitrogen/Creatinine [Mass ratio] 32.7 mg/mg High 12.0 - 20.0 [facility] Cell count panel (Body fld)o n 03-19-2023 Fluid Lymphocytes Normal [facility] Comment on above: Order Comment: Herbert d to [place] OR8 14203/19/23 GKB Performed By: #### 3 4556-1 #### [facility] [address] [place] [address] Fluid Monocytes/Macrophages 4.0 % Normal [facility] Comment on above: Order Comment: Herbert d to [place] OR8 14203/19/23 GKB Performed By: #### 3 4556-1 #### [facility] [address] [place] [address] Fluid Neutrophils 96.0 % Normal [facility] Comment on above: Order Comment: Herbert d to [place] OR8 14203/19/23 GKB Performed By: #### 3 4556-1 #### [facility] [address] [place] [address] Cell count panel (Body fld)O rdered By: Deidra Stallings on 03-19-2023 Clarity (Body fld) Cloudy [facility] Color (Body fld) [place] [facility] RBC Auto (Body fld) [#/Vol] 08661 /mm3 [facility] Comment on above: The reference range and other method performance specifications have not been established for this fluid specimen. The test result should be integrated into the clinical context for interpretation. Specimen source Nom (Body fld) [facility] WBC (Body fld) [#/Vol] 16763 /mm3 Tr [facility] Comment on above: The reference range and other method performance specifications have not been established for this fluid specimen. The test result should be integrated into the clinical context for interpretation. Called to [employer] OR8 1422 03/19/23 GKB [facility] Differential panel (Body fld )on 03-19-2023 Lymphocytes/100 WBC Manual cnt (Body fld) [facility] Monocytes+Macrophages/1 00 WBC (Body fld) 4.0 % [facility] Neutrophils/100 WBC (Body fld) 96.0 % [facility] Fungus Skin Culton 3 Fungus identified Cx Nom (Skin) Culture, Fungus Status = F No growth at [address] [facility] Comment on above: Performed By: #### 6 35-3 #### [facility] ([facility]) LAB [address] [place] [address] Performed By: #### 5 75-1 ####[facility] ([facility]) [id number] [place] [address] Performed By: #### 1 1526-1 #### [facility] [address] [place] [address] Fungus identified Cx Nom (Skin) Culture, Fungus Status = F No growth at [address] [facility] Comment on above: Performed By: #### 1 1526-1 #### [facility] [address] [place] [address] Fungus identified Cx Nom (Skin) Culture, Fungus Status = F No growth at [address] [facility] Comment on above: Performed By: #### 6 35-3 #### [facility] ([facility]) LAB [address] [place] [address] Glucose Auto test strip (Bld ) [Mass/Vol]on 03-19-2023 Glucose [Mass/Vol] 131 mg/dL High 70-99 [facility] Comment on above: Performed By: #### 6 35-3 #### [facility] ([facility]) LAB [address] [place] [address] Glucose [Mass/Vol] 131 mg/dL High 70 - 99 mg/dL [facility] Interpretation and review of laboratory results Abnormal [facility] Glucose [Mass/Vol] 124 mg/dL High 70-99 [facility] Comment on above: Performed By: #### 6 35-3 #### [facility] LAB [address] [place] [address] Glucose [Mass/Vol] 124 mg/dL High 70 - 99 mg/dL [facility] Interpretation and review of laboratory results Abnormal [facility] HbA1c HPLC (Bld) [Mass fract ion]on 03-19-2023 Glucose [Mass/Vol] 117 mg/dL [facility] HbA1c (Bld) [Mass fraction] 5.7 % High NINF - 5.6 % [facility] Interpretation and review of laboratory results Abnormal [facility] HbA1c values of 5.7- 6.4 percent indicate an increased risk for developing diabetes mellitus. HbA1c values greater than or equal to 6.5 percent are diagnostic of diabetes mellitus. For diagnosis of diabetes in individuals without unequivocal hyperglycemia, results should be confirmed by repeat testing. [facility] HbA1c (Bld) [Mass fraction] 5.7 % High <=5.6 [facility] Comment on above: Order Comment: HbA1c values of 5.7-6.4 percent indicate an increased risk for developing diabetes mellitus.HbA1c values greater than or equal to 6.5 percent are diagnostic of diabetes mellitus.For diagnosis of diabetes in individuals without unequivocal hyperglycemia, results should be confirmed by repeat testing. Performed By: #### 3 4556-1 #### [facility] [address] [place] [address] Mean Bld Glu Estim. 117 mg/dL Normal [facility] Comment on above: Order Comment: HbA1c values of 5.7-6.4 percent indicate an increased risk for developing diabetes mellitus.HbA1c values greater than or equal to 6.5 percent are diagnostic of diabetes mellitus.For diagnosis of diabetes in individuals without unequivocal hyperglycemia, results should be confirmed by repeat testing. Performed By: #### 3 4556-1 #### [facility] [address] [place] [address] Hemogram and platelets WO di fferential panel (Bld)on 03-19-2023 Basophils (Bld) [#/Vol] 0.05 10*3/uL Normal 0.00-0.20 [facility] Comment on above: Performed By: #### 3 4556-1 #### [facility] [address] [place] [address] Basophils/100 WBC (Bld) 0.4 % Normal 0.0-2.0 [facility] Comment on above: Performed By: #### 3 4556-1 #### [facility] [address] [place] [address] Eosinophils (Bld) [#/Vol] 0.07 10*3/uL Normal 0.00-0.70 [facility] Comment on above: Performed By: #### 3 4556-1 #### [facility] [address] [place] [address] Eosinophils/100 WBC (Bld) 0.6 % Normal 0.0-7.0 [facility] Comment on above: Performed By: #### 3 4556-1 #### [facility] [address] [place] [address] Erythrocyte distribution width (RBC) [Ratio] 13.9 % Normal 11.0-14.8 [facility] Comment on above: Performed By: #### 3 4556-1 #### [facility] [address] [place] [address] Hematocrit (Bld) [Volume fraction] 40.6 % Normal 34.3-47.9 [facility] Comment on above: Performed By: #### 3 4556-1 #### [facility] [address] [place] [address] Hemoglobin (Bld) [Mass/Vol] 12.9 g/dL Normal 12.0-16.0 [facility] Comment on above: Performed By: #### 3 4556-1 #### [facility] [address] [place] [address] Immature granulocytes (Bld) [#/Vol] 0.07 10*3/uL Normal 0.00-0.10 [facility] Comment on above: Performed By: #### 3 4556-1 #### [facility] [address] [place] [address] Immature granulocytes/100 WBC (Bld) 0.6 % Normal 0.0-1.2 [facility] Comment on above: Performed By: #### 3 4556-1 #### [facility] [address] [place] [address] Lymphocytes (Bld) [#/Vol] 1.28 10*3/uL Normal 1.00-4.80 [facility] Comment on above: Performed By: #### 3 4556-1 #### [facility] [address] [place] [address] Lymphocytes/100 WBC (Bld) 10.3 % Low 17.9-49.6 [facility] Comment on above: Performed By: #### 3 4556-1 #### [facility] [address] [place] [address] MCH 27.9 pcg Normal 27.0-34.0 [facility] Comment on above: Performed By: #### 3 4556-1 #### [facility] [address] [place] [address] MCHC (RBC) [Mass/Vol] 31.8 g/dL Normal 30.8-35.3 Kirsty [facility] Comment on above: Performed By: #### 3 4556-1 #### [facility] [address] [place] [address] MCV (RBC) [Entitic vol] 87.7 fL Normal 80.0-97.0 [facility] Comment on above: Performed By: #### 3 4556-1 #### [facility] [address] [place] [address] Monocytes (Bld) [#/Vol] 1.01 10*3/uL High 0.00-0.90 [facility] Comment on above: Performed By: #### 3 4556-1 #### [facility] [address] [facility] [place] [address] Monocytes/100 WBC (Bld) 8.1 % Normal 0.0-12.0 [facility] Comment on above: Performed By: #### 3 4556-1 #### [facility] [address] [place] [address] Neutrophils Absolute 9.93 K/mcL High 1.80-7.70 [facility] Comment on above: Performed By: #### 3 4556-1 #### [facility] [address] [place] [address] Neutrophils/100 WBC (Bld) 80.0 % High 38.1-75.5 [facility] Comment on above: Performed By: #### 3 4556-1 #### [facility] [address] [place] [address] Platelet mean volume (Bld) [Entitic vol] 9.6 fL Normal 6.2-12.1 [facility] Comment on above: Performed By: #### 3 4556-1 #### [facility] [address] [place] [address] Platelets (Bld) [#/Vol] 268 10*3/uL Normal 142-424 [facility] Comment on above: Performed By: #### 3 4556-1 #### [facility] [address] [place] [address] RBC (Bld) [#/Vol] 4.63 10*6/uL Normal 3.74-5.34 [facility] Comment on above: Performed By: #### 3 4556-1 #### [facility] ([facility] [address] [place] [address] WBC (Bld) [#/Vol] 12.4 10*3/uL High 4.6-10.2 [facility] Comment on above: Performed By: #### 3 4556-1 #### [facility] ([facility] [address] [place] [address] Basophils (Bld) [#/Vol] 0.05 10*3/uL [facility] Basophils/100 WBC (Bld) 0.4 % 0.0 - 2.0 % [facility] Eosinophils (Bld) [#/Vol] 0.07 10*3/uL [facility] Eosinophils/100 WBC (Bld) 0.6 % 0.0 - 7.0 % [facility] Erythrocyte distribution width (RBC) [Ratio] 13.9 % 11.0 - 14.8 % [facility] Hematocrit (Bld) [Volume fraction] 40.6 % 34.3 - 47.9 % [facility] Hemoglobin (Bld) [Mass/Vol] 12.9 g/dL 12.0 - 16.0 g/dL [facility] Immature granulocytes (Bld) [#/Vol] 0.07 10*3/uL [facility] Immature granulocytes/100 WBC (Bld) 0.6 % 0.0 - 1.2 % [facility] Interpretation and review of laboratory results Abnormal [facility] Lymphocytes (Bld) [#/Vol] 1.28 10*3/uL [facility] Lymphocytes/100 WBC (Bld) 10.3 % Low 17.9 - 49.6 % [facility] MCH (RBC) [Entitic mass] 27.9 pg [facility] MCHC (RBC) [Mass/Vol] 31.8 g/dL 30.8 - 35.3 g/dL [facility] MCV (RBC) [Entitic vol] 87.7 fL [facility] Monocytes (Bld) [#/Vol] 1.01 10*3/uL High [facility] Monocytes/100 WBC (Bld) 8.1 % 0.0 - 12.0 % [facility] Neutrophils (Bld) [#/Vol] 9.93 10*3/uL High [facility] Neutrophils/100 WBC (Bld) 80.0 % High 38.1 - 75.5 % [facility] Platelet mean volume (Bld) [Entitic vol] 9.6 fL [facility] Platelets (Bld) [#/Vol] 268 10*3/uL [facility] RBC (Bld) [#/Vol] 4.63 10*6/uL [facility] WBC (Bld) [#/Vol] 12.4 10*3/uL High [facility] Mycobacterium Spec Culton Mycobacterium sp identified Org specific cx Nom (Unsp spec) Culture AFB Status = F No growth at 8 weeks AFB Stain Status = F No acid fast bacilli seen Normal [facility] Comment on above: Performed By: #### 3 4556-1 #### [facility] [address] [place] [address] Performed By: #### 5 43-9 ####[facility] [id number] [place] [address] Mycobacterium sp identified Org specific cx Nom (Unsp spec) Culture AFB Status = F No growth at 8 weeks AFB Stain Status = F No acid fast bacilli seen Normal [facility] Comment on above: Performed By: #### 5 43-9 ####[facility] [id number] [place] [address] Mycobacterium sp identified Org specific cx Nom (Unsp spec) Culture AFB Status = F No growth at 8 weeks AFB Stain Status = F No acid fast bacilli seen Normal [facility] Comment on above: Performed By: #### 3 4556-1 #### [facility] [address] [place] [address] Pathology studyon 03-19-2023 Pathology study Left knee, biopsy: Synovium with marked acute inflammation/PMNs greater than 5 per high-power field. No perivascular lymphocytic inflammation is present. A. Knee, Left, Knee L: Received in formalin labeled with the patient's name, and additionally labeled left knee is a portion of irregular valdez-yellow to valdez-mercado fibromembranous tissue without designated orientation 2.7 x 1.5 x 0.5 cm. Sectioning reveals a valdez-yellow to valdez-mercado, fibrous cut surface with no obvious suspicious areas identified. Migratory [employer] sections are submitted in a single cassette. (JLP) Any immunohistochemistry or special stain used in the interpretation of this case was performed at [facility]. These tests have not been cleared or approved by the U.S. Food and Drug Administration. The FDA has determined that such clearance or approval is not necessary. These tests are used for clinical purposes and should not be regarded as investigational or for research. This laboratory is certified to perform high complexity testing under the Clinical Laboratory Improvement Amendments of 1998. All controls show appropriate reactivity. The technical component was performed at [facility], [address] [place] [address]. Microscopic examination was performed. Normal [facility] Comment on above: Performed By: #### 1 1526-1 #### [facility] [address] [place] [address] XR KNEE 1-2 VIEWS LEFTon XR KNEE 1-2 VIEWS LEFT EXAM: XR KNEE 1-2 VIEWS LEFT HISTORY: postoperative care COMPARISON: 10/02/2022. TECHNIQUE: Frontal and lateral views of the left knee. FINDINGS: Status post left total knee arthroplasty. Hardware is intact. Alignment is within expected limits. Surgical drain and skin almita are noted. IMPRESSION: Status post left total knee arthroplasty. -------- FINAL REPORT -------- Dictated By: Ania Dumont Dictated Date: 03/20/2023 07:17 Assigned Physician: Ania Dumont Reviewed and Electronically Signed By: Ania Dumont Signed Date: 03/20/2023 07:18 Workstation ID: [id number] Transcribed By: Self Edit Transcribed Date: 03/20/2023 07:[address] [facility] XR Knee 1-2 Views Lefton Radiology Study observation (narrative) [facility] Bacteria Spec Anaerobe Culto n 03-17-2023 Bacteria identified Anaer cx Nom (Unsp spec) Culture, Anaerobic Status = F No anaerobes grown after [address] [facility] Comment on above: Performed By: #### 6 35-3 #### [facility] ([facility]) LAB [address] [place] [address] Bacteria Spec BFld Culton Bacteria identified Sterile body fluid culture Nom (Unsp spec) 1 ORGANISM 327 Abnormal Rare Pasteurella multocida Appropriate antibiotic therapy for infections due to Eikenella and Pasteurella spp.would include an oral or parenteral Penicillin/Beta-lactamas e inhibitor combination or a second or third generation Cephalosporin depending on the severity of the illness. The organism value for this result has been updated. These results have been appended to the previously preliminary verified report. Gram Stain Result Status = F Many Polymorphonuclear leukocytes This is an appended report. These results have been appended to a previously preliminary verified report. No Epithelial cells This is an appended report. These results have been appended to a previously preliminary verified report. No organisms seen This is an appended report. These results have been appended to a previously preliminary verified report. Invalid Interpretation Code [facility] Comment on above: Performed By: #### 6 36-1 #### [facility] ([facility]) LAB [address] [place] [address] Cell count panel (Body fld)o n 03-17-2023 Fluid Lymphocytes 7.0 % Normal [facility] Comment on above: Performed By: #### 3 4556-1 #### [facility] [address] [facility] [place] [address] Fluid Monocytes/Macrophages 2.0 % Normal [facility] Comment on above: Performed By: #### 3 4556-1 #### [facility] ([facility] [address] [facility] [place] [address] Fluid Neutrophils 91.0 % Normal [facility] Comment on above: Performed By: #### 3 4556-1 #### [facility] ([facility]) [facility] [address] [address] Fungus Skin Culton Fungus identified Cx Nom (Skin) Culture, Fungus Status = F No growth at [address] [facility] Comment on above: Performed By: #### 1 7856-6 #### [facility] ([facility] [address] [place] [address] Mycobacterium Spec Culton Mycobacterium sp identified Org specific cx Nom (Unsp spec) Culture AFB Status = F No growth at 8 weeks AFB Stain Status = F No acid fast bacilli seen Normal [facility] Comment on above: Performed By: #### 5 43-9 ####[facility] ([facility]) [id number] [place] [address] CBC AUTO DIFFon 03-15-2023 BASO # 0.0 103/ul Normal 0.0-0.1 [facility] Comment on above: Performed By: #### C BC #### [facility] [address] [place] [address] Dr. Kyree Neal Basophils/100 WBC (Bld) 0.3 % Normal 0.2-2.0 [facility] Comment on above: Performed By: #### C BC #### [facility] [address] [place] [address] Dr. Kyere Neal EO # 0.0 103/ul Normal 0.0-0.7 [facility] Comment on above: Performed By: #### C BC #### [facility] [address] [place] [address] Dr. Kyree Neal Eosinophils/100 WBC (Bld) 0.1 % Critically low 0.9-7.0 [facility] Comment on above: Performed By: #### C BC #### [facility] [address] [place] [address] Dr. Kyree Neal Erythrocyte distribution width (RBC) [Ratio] 14.0 % Normal 11.0-15.0 [facility] Comment on above: Performed By: #### C BC #### [facility] [address] [address] [address] Kyree Neal Hematocrit (Bld) [Volume fraction] 38.5 % Normal 36.0-48.0 [facility] Comment on above: Performed By: #### C BC #### [facility] [address] [address] [address] Kyree Neal Hemoglobin (Bld) [Mass/Vol] 12.4 g/dL Normal 12.0-16.0 [facility] Comment on above: Performed By: #### C BC #### [facility] [address] [address] [address] Kyree Neal IG # 0.06 10e3/ul Critically high 0.00-0.03 [facility] Comment on above: Performed By: #### C BC #### [facility] [address] [place] [address] Dr. Kyree Neal IG % 0.4 % Normal 0.0-0.5 [facility] Comment on above: Performed By: #### C BC #### [facility] [address] [address] [address] Kyree Neal LYMPH # 0.9 103/ul Critically low 1.2-3.8 [facility] Comment on above: Performed By: #### C BC #### [facility] [address] [place] [address] Dr. Kyree Neal Lymphocytes/100 WBC (Bld) 6.6 % Critically low 20.5-60.0 [facility] Comment on above: Performed By: #### C BC #### [facility] [address] [place] [address] Dr. Kyree Neal MANUAL DIFF REQ NO Normal [facility] Comment on above: Performed By: #### C BC #### [facility] [address] [place] [address] Dr. Kyree Neal MCH (RBC) [Entitic mass] 28.1 pg Normal 26.7-34.0 [facility] Comment on above: Performed By: #### C BC #### [facility] [address] [place] [address] Dr. Kyree Neal MCHC (RBC) [Mass/Vol] 32.2 g/dL Normal 29.9-35.2 [facility] Comment on above: Performed By: #### C BC #### [facility] [address] [address] [address] Kyree Neal MCV (RBC) [Entitic vol] 87.1 fL Normal 81.0-99.0 [facility] Comment on above: Performed By: #### C BC #### [facility] [address] [place] [address] Dr. Kyree Neal MONO # 1.2 103/ul Critically high 0.3-0.8 [facility] Comment on above: Performed By: #### C BC #### [facility] [address] [place] [address] Dr. Kyree Neal Monocytes/100 WBC (Bld) 8.6 % Normal 1.7-12.0 [facility] Comment on above: Performed By: #### C BC #### [facility] [address] [place] [address] Dr. Kyree Neal NEUT # 11.5 103/ul Critically high 1.4-6.5 [facility] Comment on above: Performed By: #### C BC #### [facility] [address] [place] [address] Dr. Kyree Neal Neutrophils/100 WBC (Bld) 84.0 % Critically high 43.0-75.0 [facility] Comment on above: Performed By: #### C BC #### [facility] [address] [place] [address] Dr. Kyree Neal Platelet mean volume (Bld) [Entitic vol] 10.0 fL Normal 9.5-13.5 [facility] Comment on above: Performed By: #### C BC #### [facility] [address] [place] [address] Dr. Kyree Neal PLT 250 103/ul Normal 150-450 [facility] Comment on above: Performed By: #### C BC #### [facility] [address] [place] [address] Dr. Kyree Neal RBC 4.42 106/ul Normal 4.20-5.40 [facility] Comment on above: Performed By: #### C BC #### [facility] [address] [address] [address] Kyree Neal WBC 13.7 103/ul Critically high 4.0-11.0 [facility] Comment on above: Performed By: #### C BC #### [facility] [address] [address] [address] Kyree Neal CRPon 03-15-2023 CRP 13.8 mg/dL Critically high <=1.0 [facility] Comment on above: Performed By: #### H H #### [facility] [address] [place] [address] Dr. Kyree Neal CULTURE BLOODon 03-15-2023 Microscopic examination of blood, culture Culture Observations: NO GROWTH AT 36-48 HOURS. FINAL TO FOLLOW. Normal [facility] Comment on above: Performed By: #### B LDCX2 ####[facility] [address] [address]Dr. Kyree Neal Microscopic examination of blood, culture Culture Observations: NO GROWTH AT 36-48 HOURS. FINAL TO FOLLOW. [facility] Comment on above: Performed By: #### B LDCX1 ####[facility] [address] [address]Dr. Kyree Neal LACTATE/LACTIC ACIDon 2022 Lactate [Moles/Vol] 1.2 mmol/L Normal 0.4-2.0 [facility] Comment on above: Performed By: #### H H #### [facility] [address] [place] [address] Dr. Kyree Neal PROF CHEM 8 (BAS METB)on Anion gap [Moles/Vol] 11.6 mmol/L Normal [facility] Comment on above: Performed By: #### H H #### [facility] [address] [place] [address] Dr. Kyree Neal Calcium [Mass/Vol] 9.0 mg/dL Normal 8.5-10.1 [facility] Comment on above: Performed By: #### H H #### [facility] [address] [address] [address] Kyree Neal Chloride [Moles/Vol] 102 mmol/L Normal 98-107 [facility] Comment on above: Performed By: #### H H #### [facility] [address] [address] [address] Kyree Neal CO2 [Moles/Vol] 28.0 mmol/L Normal 21.0-32.0 [facility] Comment on above: Performed By: #### H H #### [facility] [address] [address] [address] Kyree Neal Creatinine [Mass/Vol] 1.34 mg/dL Critically high 0.55-1.02 [facility] Comment on above: Performed By: #### H H #### [facility] [address] [address] [address] Kyree Neal EGFR-AF KENYAN 48 mL/min/1.73m2 Critically low >=60 [facility] Comment on above: Performed By: #### H H #### [facility] [address] [address] [address] Kyree Neal EGFR-NON AF KENYAN 39 mL/min/1.73m2 Critically low >=60 [facility] Comment on above: Performed By: #### H H #### [facility] [address] [address] [address] Kyree Neal Glucose [Mass/Vol] 120 mg/dL Critically high 74-106 [facility] Comment on above: Performed By: #### H H #### [facility] [address] [address] [address] Kyree Neal Potassium [Moles/Vol] 3.6 mmol/L Normal 3.5-5.1 [facility] Comment on above: Performed By: #### H H #### [facility] [address] [address] [address] Kyree Neal Sodium [Moles/Vol] 138 mmol/L Normal 136-145 [facility] Comment on above: Performed By: #### H H #### [facility] [address] [address] [address] Kyree Neal Urea nitrogen [Mass/Vol] 36.0 mg/dL Critically high 7.0-18.0 [facility] Comment on above: Performed By: #### H H #### [facility] [address] [address] [address] Kyree Neal Urea nitrogen/Creatinine [Mass ratio] 26.9 mg/mg Normal [facility] Comment on above: Performed By: #### H H #### [facility] [address] [address] [address] Kyree Neal SED RATE [facility] 2022 SED RATE 80 mm/hr Critically high <=30 [facility] Comment on above: Performed By: #### H H #### [facility] [address] [address] [address] Kyree Neal US NGUYỄN DOP LEG LTon 03-15-20 23 US NGUYỄN DOP LEG LT EXAM: US NGUYỄN DOP LEG LT HISTORY: Pain left leg COMPARISON: Comparison made to exam dated 01/15/2022. TECHNIQUE: Mercado-scale, color-flow, and Spectral Doppler examination of the left lower extremity were performed with and without provocative maneuvers. FINDINGS: Sonographic examination of the left lower extremity deep venous system to include the common femoral, superficial femoral and popliteal veins, demonstrates normal compressibility, color-flow, respiratory variation, and augmentation. The origin and proximal segment of the greater saphenous vein also demonstrates normal compression and color-flow. There is normal color-flow in the peroneal, posterior tibial, and anterior tibial veins. There is a 2.5 x 0.9 x 1.2 cm left popliteal cyst. IMPRESSION: 1. No deep venous thrombosis of the left lower extremity. 2. Small left popliteal cyst. Electronically authenticated by: LUCILA PRABHAKAR Date: 2023-03-15 18:55 Normal [facility] XR KNEE LT 4V or >on 023 XR KNEE LT 4V or > EXAM: XR KNEE LT 4V or > HISTORY: Pain COMPARISON: None. TECHNIQUE: 5 views of the left knee FINDINGS: The patient is post total left knee replacement with intact prosthesis in normal alignment. No significant periprosthetic lucency seen. No acute osseous fracture is seen. The visualized soft tissues appear unremarkable. No significant joint effusion is seen. IMPRESSION: No acute fracture or malalignment. Prior total left knee replacement. Electronically authenticated by: NAVEEN AZAR Date: 2023-03-15 19:13 Normal [facility] Physician Referralon 023 Physician Referral [id number]: 127 Normal [facility] Physician Referral [id number] [id number]: 127 Normal [facility] US THYROIDon 01-07-2023 US THYROID EXAMINATION: US THYR OID HISTORY: Non-toxic multinodular goiter COMPARISON: Ultrasound thyroid 12/25/2021 FINDINGS: RIGHT LOBE: Heterogeneous echotexture. Contains a stable 1.3 cm TR 3 nodule within mid body and a stable 1.2 cm TR 3 nodule within inferior pole. Incidental colloid cyst within superior pole. Lobe size: 5.1 x 1.5 x 1.9 cm LEFT LOBE: Heterogeneous echotexture with stable 1.2 cm TR 3 nodule within superior pole and stable 0.8 cm TR 2 nodule within inferior pole. Lobe size: 4.5 x 1.8 x 1.6 cm ISTHMUS: Normal size and echotexture. Thickness: 2 mm IMPRESSION: 1. Findings favor multinodular goiter. No appreciable change or overtly suspicious nodules. TR3 (mildly suspicious): > 1.5 cm, follow-up ultrasound in 1, 3, and 5 years. > 2.5 cm, fine needle aspiration. TI-RADS 2: Benign nodules. Noticeably benign pattern (0% risk of malignancy) Electronically authenticated by: NELIA TIJERINA Date: 2023-01-07 13:45 Normal [facility] C3 and C4 COMPLEMENTon 11-05 Complement C3, Serum 95 mg/dL Normal 82-167 [facility] Comment on above: Performed By: #### H H #### [facility] [address] [place] [address] Dr. Kyree Neal Complement C4, Serum 25 mg/dL Normal 12-38 [facility] Comment on above: Performed By: #### H H #### [facility] [address] [address] [address] Kyree Neal COMPLEMENT TOTAL (CH50)on Complement, Total (CH50) >60 Normal >41 [facility] Comment on above: Result Comment: Age Male Female 1 - 30 days Not Estab. Not Estab. 31 days - 6 months >32 >20 7 months - 17 years >39 >39 >17 years >41 >41 NOTE: The adult ( >17 years ) reference interval range is used to flag abnormals on this report. If the patient is 17 years old or younger, use the table above to determine out of range values. Performed By: #### C H50T #### [facility] [address] [place] [address] Dr. Kyree Neal HAND TWISTER ANTIBODIESon 11-05-2022 HAND TWISTER Antibodies <0.2 Normal 0.0-0.9 [facility] Comment on above: Performed By: #### R NPAB ####[facility] [address] [address]Dr. Kyree Neal CBC AUTO DIFFon 11-04-2022 BASO # 0.1 103/ul Normal 0.0-0.1 [facility] Comment on above: Performed By: #### S EDR #### [facility] [address] [address] [address] Kyree Neal Basophils/100 WBC (Bld) 1.2 % Normal 0.2-2.0 [facility] Comment on above: Performed By: #### S EDR #### [facility] [address] [address] [address] Kyree Neal EO # 0.6 103/ul Normal 0.0-0.7 [facility] Comment on above: Performed By: #### S EDR #### [facility] [address] [place] [address] Dr. Kyree Neal Eosinophils/100 WBC (Bld) 6.3 % Normal 0.9-7.0 [facility] Comment on above: Performed By: #### S EDR #### [facility] [address] [place] [address] Dr. Kyree Neal Erythrocyte distribution width (RBC) [Ratio] 13.5 % Normal 11.0-15.0 [facility] Comment on above: Performed By: #### S EDR #### [facility] [address] [place] [address] Dr. Kyree Neal Hematocrit (Bld) [Volume fraction] 39.0 % Normal 36.0-48.0 [facility] Comment on above: Performed By: #### S EDR #### [facility] [address] [place] [address] Dr. Kyree Neal Hemoglobin (Bld) [Mass/Vol] 12.6 g/dL Normal 12.0-16.0 [facility] Comment on above: Performed By: #### S EDR #### [facility] [address] [place] [address] Dr. Kyree Neal IG # 0.02 10e3/ul Normal 0.00-0.03 [facility] Comment on above: Performed By: #### S EDR #### [facility] [address] [place] [address] Dr. Kyree Neal IG % 0.2 % Normal 0.0-0.5 [facility] Comment on above: Performed By: #### S EDR #### [facility] [address] [place] [address] Dr. Kyree Neal LYMPH # 1.9 103/ul Normal 1.2-3.8 [facility] Comment on above: Performed By: #### S EDR #### [facility] [address] [place] [address] Dr. Kyree Neal Lymphocytes/100 WBC (Bld) 22.4 % Normal 20.5-60.0 [facility] Comment on above: Performed By: #### S EDR #### [facility] [address] [place] [address] Dr. Kyree Neal MANUAL DIFF REQ NO Normal [facility] Comment on above: Performed By: #### S EDR #### [facility] [address] [place] [address] Dr. Kyree Neal MCH (RBC) [Entitic mass] 28.1 pg Normal 26.7-34.0 [facility] Comment on above: Performed By: #### S EDR #### [facility] [address] [place] [address] Dr. Kyree Neal MCHC (RBC) [Mass/Vol] 32.3 g/dL Normal 29.9-35.2 [facility] Comment on above: Performed By: #### S EDR #### [facility] [address] [place] [address] Dr. Kyree Neal MCV (RBC) [Entitic vol] 87.1 fL Normal 81.0-99.0 [facility] Comment on above: Performed By: #### S EDR #### [facility] [address] [place] [address] Dr. Kyree Neal MONO # 0.8 103/ul Normal 0.3-0.8 [facility] Comment on above: Performed By: #### S EDR #### [facility] [address] [place] [address] Dr. Kyree Neal Monocytes/100 WBC (Bld) 9.0 % Normal 1.7-12.0 [facility] Comment on above: Performed By: #### S EDR #### [facility] [address] [place] [address] Dr. Kyree Neal NEUT # 5.3 103/ul Normal 1.4-6.5 [facility] Comment on above: Performed By: #### S EDR #### [facility] [address] [place] [address] Dr. Kyree Neal Neutrophils/100 WBC (Bld) 60.9 % Normal 43.0-75.0 [facility] Comment on above: Performed By: #### S EDR #### [facility] [address] [place] [address] Dr. Kyree Neal Platelet mean volume (Bld) [Entitic vol] 9.7 fL Normal 9.5-13.5 [facility] Comment on above: Performed By: #### S EDR #### [facility] [address] [place], [place] [address] Dr. Kyree Neal PLT 232 103/ul Normal 150-450 [facility] Comment on above: Performed By: #### S EDR #### [facility] [address] [place], [place] [address] Dr. Kyree Neal RBC 4.48 106/ul Normal 4.20-5.40 [facility] Comment on above: Performed By: #### S EDR #### [facility] [address] [place], [place] [address] Dr. Kyree Neal WBC 8.7 103/ul Normal 4.0-11.0 [facility] Comment on above: Performed By: #### S EDR #### [facility] [address] [address] [address] Kyree Neal CRPon 11-04-2022 CRP 1.8 mg/dL Critically high <=1.0 [facility] Comment on above: Performed By: #### C RP, CMP ####[facility] [address] [id number]. Kyree Neal PROF 14(COMP METB)on 023 Albumin [Mass/Vol] 3.6 g/dL Normal 3.4-5.0 [facility] Comment on above: Performed By: #### C RP, CMP ####[facility] [address] [id number] Neal Albumin/Globulin [Mass ratio] 1.0 {ratio} Normal [facility] Comment on above: Performed By: #### C RP, CMP ####[facility] [address] [id number] Neal ALP [Catalytic activity/Vol] 75 U/L Normal 46-116 [facility] Comment on above: Performed By: #### C RP, CMP ####[facility] [address] [id number] Neal ALT [Catalytic activity/Vol] 17 U/L Normal 14-59 [facility] Comment on above: Performed By: #### C RP, CMP ####[facility] [address] [address]Dr. Kyree Neal Anion gap [Moles/Vol] 11.8 mmol/L Normal [facility] Comment on above: Performed By: #### C RP, CMP ####[facility] [address] [address]Dr. Kyree Neal AST [Catalytic activity/Vol] 19 U/L Normal 15-37 [facility] Comment on above: Performed By: #### C RP, CMP ####[facility] [address] [address]Dr. Kyree Ángel Bilirubin [Mass/Vol] 0.6 mg/dL Normal 0.2-1.0 [facility] Comment on above: Performed By: #### C RP, CMP ####[facility] [address] [place], [place] [address]Dr. Kyree Ángel Calcium [Mass/Vol] 9.2 mg/dL Normal 8.5-10.1 [facility] Comment on above: Performed By: #### C RP, CMP ####[facility] [address] [place], [place] [address]Dr. Kyree Ángel Chloride [Moles/Vol] 99 mmol/L Normal 98-107 [facility] Comment on above: Performed By: #### C RP, CMP ####[facility] [address] [place], [place] [address]Dr. Kyree Neal CO2 [Moles/Vol] 30.5 mmol/L Normal 21.0-32.0 [facility] Comment on above: Performed By: #### C RP, CMP ####[facility] [address] [place], [place] [address]Dr. Aaliyahjeff Ángel Creatinine [Mass/Vol] 1.03 mg/dL Critically high 0.55-1.02 [facility] Comment on above: Performed By: #### C RP, CMP ####[facility] [address] [place], [place] [address]Dr. Kyree Neal EGFR-AF KENYAN >60 Normal >=60 [facility] Comment on above: Performed By: #### C RP, CMP ####[facility] [address] [id number]. Kyree Neal EGFR-NON AF KENYAN 53 mL/min/1.73m2 Critically low >=60 [facility] Comment on above: Performed By: #### C RP, CMP ####[facility] [address] [place], [place] [address]Dr. Kyree Neal Globulin (S) [Mass/Vol] 3.6 g/dL Normal [facility] Comment on above: Performed By: #### C RP, CMP ####[facility] [address] [place], [place] [address]Dr. Kyree Neal Glucose [Mass/Vol] 97 mg/dL Normal 74-106 [facility] Comment on above: Performed By: #### C RP, CMP ####[facility] [address] [place], [place] [address]Dr. Kyree Ángel Potassium [Moles/Vol] 3.3 mmol/L Critically low 3.5-5.1 [facility] Comment on above: Performed By: #### C RP, CMP ####[facility] [address] [place], [place] [address]Dr. Kyree Neal Protein [Mass/Vol] 7.2 g/dL Normal 6.4-8.2 [facility] Comment on above: Performed By: #### C RP, CMP ####[facility] [address] [place], [place] [address]Dr. Kyree Neal Sodium [Moles/Vol] 138 mmol/L Normal 136-[address] [facility] Comment on above: Performed By: #### C RP, CMP ####[facility] [address] [place], [place] [address]Dr. Kyree Neal Urea nitrogen [Mass/Vol] 28.0 mg/dL Critically high 7.0-18.0 [facility] Comment on above: Performed By: #### C RP, CMP ####[facility] [address] [place] [address] Kyree Neal Urea nitrogen/Creatinine [Mass ratio] 27.2 mg/mg Normal [facility] Comment on above: Performed By: #### C RP, CMP ####[facility] [address] [id number]. Kyree Neal SED RATE WESTERGRENon 2022 SED RATE 92 mm/hr Critically high <=30 [facility] Comment on above: Performed By: #### S EDR #### [facility] [address] [address] [address] Kyree Neal UA RANDOM W/MICROSCOPICon BACTERIA NONE SEEN Normal NONE SEEN [facility] Comment on above: Performed By: #### H H #### [facility] [address] [place] [address] Dr. Kyree Neal Bilirubin Ql (U) Negative Normal NEGATIVE [facility] Comment on above: Performed By: #### H H #### [facility] [address] [address] [address] Kyree Neal CAST NONE SEEN Normal NONE SEEN [facility] Comment on above: Performed By: #### H H #### [facility] [address] [place] [address] Dr. Kyree Neal Clarity (U) CLEAR Normal CLEAR [facility] Comment on above: Performed By: #### H H #### [facility] [address] [address] [address] Kyree Neal Color (U) YELLOW Normal YELLOW [facility] Comment on above: Performed By: #### H H #### [facility] [address] [address] [address] Kyree Neal Crystals LM Nom (Urine sed) NONE SEEN Normal NONE SEEN [facility] Comment on above: Performed By: #### H H #### [facility] [address] [place] [address] Dr. Kyree Neal Epithelial cells LM Ql (Urine sed) RARE Normal NONE SEEN /RARE [facility] Comment on above: Performed By: #### H H #### [facility] [address] [place] [address] Dr. Kyree Neal Glucose Ql (U) Negative Normal NEGATIVE [facility] Comment on above: Performed By: #### H H #### [facility] [address] [place] [address] Dr. Kyree Neal Hemoglobin Ql (U) Negative Normal NEGATIVE [facility] Comment on above: Performed By: #### H H #### [facility] [address] [place] [address] Dr. Kyree Neal Ketones Ql (U) Negative Normal NEGATIVE [facility] Comment on above: Performed By: #### H H #### [facility] [address] [place] [address] Dr. Kyree Neal LEUKOCYTES Negative Normal NEGATIVE [facility] Comment on above: Performed By: #### H H #### [facility] [address] [place] [address] Dr. Kyree Neal MUCOUS NONE SEEN Normal NONE SEEN [facility] Comment on above: Performed By: #### H H #### [facility] [address] [place] [address] Dr. Kyree Neal Nitrite Ql (U) Negative Normal NEGATIVE [facility] Comment on above: Performed By: #### H H #### [facility] [address] [place] [address] Dr. Kyree Neal pH (U) 7.0 [pH] Normal 5-9 [facility] Comment on above: Performed By: #### H H #### [facility] [address] [place] [address] Dr. Kyree Neal RBC 0-2 Normal 0-2 [facility] Comment on above: Performed By: #### H H #### [facility] [address] [place] [address] Dr. Kyree Neal SPEC GRAVITY 1.010 Normal 1.005-<=1. 025 [facility] Comment on above: Performed By: #### H H #### [facility] [address] [place] [address] Dr. Kyree Neal UA PROTEIN Negative Normal NEGATIVE/ TRACE [facility] Comment on above: Performed By: #### H H #### [facility] [address] [address] [address] Kyree Neal Urobilinogen Qn (U) 1.0 {Herrera'U}/dL Normal 0.2 - 1. 0 [facility] Comment on above: Performed By: #### H H #### [facility] [address] [address] [address] Kyree Neal WBC NONE SEEN Normal NONE SEEN [facility] Comment on above: Performed By: #### H H #### [facility] [address] [address] [address] Kyree Neal Bacteria identified Anaer cx Nom (Unsp spec)on 10-06-2022 [facility] Glucose Auto test strip (Bld ) [Mass/Vol]on 10-06-2022 Glucose [Mass/Vol] 93 mg/dL Normal 70-99 [facility] Comment on above: Performed By: #### 6 35-3 #### [facility] [place] [facility] [address] [place] [address] Glucose [Mass/Vol] 93 mg/dL 70 - 99 mg/dL [facility] Interpretation and review of laboratory results Normal [facility] Glucose [Mass/Vol] 101 mg/dL High 70 - 99 mg/dL [facility] Interpretation and review of laboratory results Abnormal [facility] Laboratory - Microbiology an d Antimicrobial susceptibilityon 10-06-2022 Bacteria identified Anaer cx Nom (Unsp spec) No anaerobes grown after 4 days. [facility] Bacteria identified Sterile body fluid culture Nom (Unsp spec)on 10-05-2022 Bacteria identified Cx Nom (Body fld) No growth at 3 days [facility] Glucose Auto test strip (Bld ) [Mass/Vol]on 10-05-2022 Glucose [Mass/Vol] 133 mg/dL High 70-99 [facility] Comment on above: Performed By: #### 6 35-3 #### [facility] [place] [facility] [address] [place] [address] Glucose [Mass/Vol] 133 mg/dL High 70 - 99 mg/dL [facility] Interpretation and review of laboratory results Abnormal [facility] Glucose [Mass/Vol] 101 mg/dL High 70-99 [facility] Comment on above: Performed By: #### 6 35-3 #### [facility] [address] [place] [address] Glucose [Mass/Vol] 141 mg/dL High 70-99 [facility] Comment on above: Performed By: #### 6 36-1 #### [facility] [address] [place] [address] Glucose [Mass/Vol] 141 mg/dL High 70 - 99 mg/dL [facility] Interpretation and review of laboratory results Abnormal [facility] Laboratory - Microbiology an d Antimicrobial susceptibilityon 10-05-2022 Bacteria identified Cx Nom (Tiss) No growth at 3 days [facility] Microscopic observation Gram stain Nom (Unsp spec) No Polymorphonuclear leukocytes [facility] Comment on above: This is an appended report. These results have been appended to a previously preliminary verified report. Microscopic observation Gram stain Nom (Unsp spec) No Epithelial cells [facility] Comment on above: This is an appended report. These results have been appended to a previously preliminary verified report. Microscopic observation Gram stain Nom (Unsp spec) No organisms seen [facility] Comment on above: This is an appended report. These results have been appended to a previously preliminary verified report. No Panel Informationon 10-05 [facility] Basic metabolic 2000 panelon 10-04-2022 Anion gap [Moles/Vol] 8 mmol/L Normal 6-18 [facility] Comment on above: Performed By: #### 3 4556-1 #### [facility] [address] [place] [address] Calcium [Mass/Vol] 9.3 mg/dL Normal 8.9-10.3 [facility] Comment on above: Performed By: #### 3 4556-1 #### [facility] [address] [place] [address] Chloride [Moles/Vol] 107 mmol/L Normal 98-107 [facility] Comment on above: Performed By: #### 3 4556-1 #### [facility] [address] [facility] [place] [address] CO2 [Moles/Vol] 26 mmol/L Normal 22-32 [facility] Comment on above: Performed By: #### 3 4556-1 #### [facility] [address] [place] [address] Creatinine [Mass/Vol] 0.89 mg/dL Normal 0.60-1.30 [facility] Comment on above: Performed By: #### 3 4556-1 #### [facility] [address] [facility] [place] [address] GFR/1.73 sq M.predicted among non-blacks MDRD (S/P/Bld) [Vol rate/Area] 71 mL/min/{1.73_m2} Normal >=60 [facility] Comment on above: Result Comment: Effe ctive July 27, 2022, calculation based on the?Chronic Kidney Disease Epidemiology Collaboration (CKD-EPI) equation refit?without adjustment for race. Performed By: #### 3 4556-1 #### [facility] [address] [place] [address] Glucose [Mass/Vol] 94 mg/dL Normal 70-99 [facility] Comment on above: Performed By: #### 3 4556-1 #### [facility] [address] [facility] [place] [address] Potassium [Moles/Vol] 4.0 mmol/L Normal 3.6-5.1 [facility] Comment on above: Performed By: #### 3 4556-1 #### [facility] [address] [facility] [place] [place] [address] Sodium [Moles/Vol] 141 mmol/L Normal 136-145 [facility] Comment on above: Performed By: #### 3 4556-1 #### [facility] [address] [facility] [place] [address] Urea nitrogen [Mass/Vol] 14 mg/dL Normal 8-20 [facility] Comment on above: Performed By: #### 3 4556-1 #### [facility] [address] [place] [address] Urea nitrogen/Creatinine [Mass ratio] 15.7 mg/mg Normal 12.0-20.0 [facility] Comment on above: Performed By: #### 3 4556-1 #### [facility] [address] [place] [address] Anion gap [Moles/Vol] 8 mmol/L 6 - 18 [facility] [employer] Calcium [Mass/Vol] 9.3 mg/dL 8.9 - 10. 3 mg/dL [facility] Chloride [Moles/Vol] 107 mmol/L 98 - 10 7 mmol/L [facility] CO2 [Moles/Vol] 26 mmol/L 22 - 32 mmol/L [facility] Creatinine [Mass/Vol] 0.89 mg/dL 0.60 - 1.30 mg/dL [facility] GFR/1.73 sq M.predicted among non-blacks MDRD (S/P/Bld) [Vol rate/Area] 71 mL/min/{1.73_m2} - PINF [facility] Comment on above: Effective July 27, 2022, calculation based on the Chronic Kidney Disease Epidemiology Collaboration (CKD-EPI) equation refit without adjustment for race. Glucose [Mass/Vol] 94 mg/dL 70 - 99 mg/dL [facility] Interpretation and review of laboratory results Normal [facility] Potassium [Moles/Vol] 4.0 mmol/L 3.6 - 5.1 mmol/L [facility] Sodium [Moles/Vol] 141 mmol/L 136 - 145 mmol/L [facility] Urea nitrogen [Mass/Vol] 14 mg/dL 8 - 20 mg/dL [facility] Urea nitrogen/Creatinine [Mass ratio] 15.7 mg/mg 12.0 - 20.0 [facility] Glucose Auto test strip (Bld ) [Mass/Vol]on 10-04-2022 Glucose [Mass/Vol] 125 mg/dL High 70-99 [facility] Comment on above: Performed By: #### 6 35-3 #### [facility] ([facility] [address] [place] [address] Glucose [Mass/Vol] 125 mg/dL High 70 - 99 mg/dL [facility] Interpretation and review of laboratory results Abnormal [facility] Glucose [Mass/Vol] 94 mg/dL Normal 70-99 [facility] Comment on above: Performed By: #### 6 35-3 #### [facility] [address] [place] [address] Glucose [Mass/Vol] 94 mg/dL 70 - 99 mg/dL [facility] Interpretation and review of laboratory results Normal [facility] Glucose [Mass/Vol] 93 mg/dL Normal 70-99 [facility] Comment on above: Performed By: #### 6 36-1 #### [facility] [address] [place] [address] Glucose [Mass/Vol] 93 mg/dL 70 - 99 mg/dL [facility] Interpretation and review of laboratory results Normal [facility] Glucose [Mass/Vol] 87 mg/dL Normal 70-99 [facility] Comment on above: Performed By: #### 6 36-1 #### [facility] [address] [place] [address] Glucose [Mass/Vol] 87 mg/dL 70 - 99 mg/dL [facility] Interpretation and review of laboratory results Normal [facility] Hemogram and platelets WO di fferential panel (Bld)on 10-04-2022 Erythrocyte distribution width (RBC) [Ratio] 13.9 % Normal 11.0-14.8 [facility] Comment on above: Performed By: #### 3 4556-1 #### [facility] ([facility]) [facility] [address] [facility] [place] [address] Hematocrit (Bld) [Volume fraction] 39.6 % Normal 34.3-47.9 [facility] Comment on above: Performed By: #### 3 4556-1 #### [facility] [address] [place] [address] Hemoglobin (Bld) [Mass/Vol] 12.2 g/dL Normal 12.0-16.0 [facility] Comment on above: Performed By: #### 3 4556-1 #### [facility] [address] [place] [address] MCH 27.7 pcg Normal 27.0-34.0 [facility] Comment on above: Performed By: #### 3 4556-1 #### [facility] [address] [place] [address] MCHC (RBC) [Mass/Vol] 30.8 g/dL Normal 30.8-35.3 [facility] Comment on above: Performed By: #### 3 4556-1 #### [facility] [address] [place] [address] MCV (RBC) [Entitic vol] 90.0 fL Normal 80.0-97.0 [facility] Comment on above: Performed By: #### 3 4556-1 #### [facility] [address] [place] [address] Platelet mean volume (Bld) [Entitic vol] 10.3 fL Normal 6.2-12.1 [facility] Comment on above: Performed By: #### 3 4556-1 #### [facility] [address] [place] [address] Platelets (Bld) [#/Vol] 194 10*3/uL Normal 142-424 [facility] Comment on above: Performed By: #### 3 4556-1 #### [facility] [address] [place], [place] [address], [place] [address] RBC (Bld) [#/Vol] 4.40 10*6/uL Normal 3.74-5.34 [facility] Comment on above: Performed By: #### 3 4556-1 #### [facility] [address] [place] [address] WBC (Bld) [#/Vol] 9.2 10*3/uL Normal 4.6-10.2 [facility] Comment on above: Performed By: #### 3 4556-1 #### [facility] [address] [place] [address] Erythrocyte distribution width (RBC) [Ratio] 13.9 % 11.0 - 14.8 % [facility] Hematocrit (Bld) [Volume fraction] 39.6 % 34.3 - 47.9 % [facility] Hemoglobin (Bld) [Mass/Vol] 12.2 g/dL 12.0 - 16.0 g/dL [facility] Interpretation and review of laboratory results Normal [facility] MCH (RBC) [Entitic mass] 27.7 pg [facility] MCHC (RBC) [Mass/Vol] 30.8 g/dL 30.8 - 35.3 g/dL [facility] MCV (RBC) [Entitic vol] 90.0 fL [facility] [employer] Platelet mean volume (Bld) [Entitic vol] 10.3 fL [facility] Platelets (Bld) [#/Vol] 194 10*3/uL [facility] RBC (Bld) [#/Vol] 4.40 10*6/uL [facility] WBC (Bld) [#/Vol] 9.2 10*3/uL [facility] Basic metabolic 2000 panelon 10-03-2022 Anion gap [Moles/Vol] 9 mmol/L Normal 6-18 [facility] Comment on above: Performed By: #### 6 35-3 #### [facility] [address] [place] [address] Calcium [Mass/Vol] 9.0 mg/dL Normal 8.9-10.3 [facility] Comment on above: Performed By: #### 6 35-3 #### [facility] [place] [facility] [address] [place] [address] Chloride [Moles/Vol] 105 mmol/L Normal 98-107 [facility] Comment on above: Performed By: #### 6 35-3 #### [facility] [place] [facility] [address] [place] [address] CO2 [Moles/Vol] 25 mmol/L Normal 22-32 [facility] Comment on above: Performed By: #### 6 35-3 #### [facility] [place] [facility] [address] [place] [address] Creatinine [Mass/Vol] 0.97 mg/dL Normal 0.60-1.30 [facility] Comment on above: Performed By: #### 6 35-3 #### [facility] [place] [facility] [address] [place] [address] GFR/1.73 sq M.predicted among non-blacks MDRD (S/P/Bld) [Vol rate/Area] 64 mL/min/{1.73_m2} Normal >=60 [facility] Comment on above: Result Comment: Effe ctive July 27, 2022, calculation based on the?Chronic Kidney Disease Epidemiology Collaboration (CKD-EPI) equation refit?without adjustment for race. Performed By: #### 6 35-3 #### [facility] [place] [facility] [address] [place] [address] Glucose [Mass/Vol] 132 mg/dL High 70-99 [facility] Comment on above: Performed By: #### 6 35-3 #### [facility] [place] [facility] [address] [place] [address] Potassium [Moles/Vol] 4.6 mmol/L Normal 3.6-5.1 [facility] Comment on above: Performed By: #### 6 35-3 #### [facility] [place] [facility] [address] [place] [address] Sodium [Moles/Vol] 139 mmol/L Normal 136-145 [facility] Comment on above: Performed By: #### 6 35-3 #### [facility] [address] [place] [address] Urea nitrogen [Mass/Vol] 19 mg/dL Normal 8-20 [facility] Comment on above: Performed By: #### 6 35-3 #### [facility] [address] [place] [address] Urea nitrogen/Creatinine [Mass ratio] 19.6 mg/mg Normal 12.0-20.0 [facility] Comment on above: Performed By: #### 6 35-3 #### [facility] [address] [place] [address] Anion gap [Moles/Vol] 9 mmol/L 6 - 18 [facility] Calcium [Mass/Vol] 9.0 mg/dL 8.9 - 10. 3 mg/dL [facility] Chloride [Moles/Vol] 105 mmol/L 98 - 10 7 mmol/L [facility] CO2 [Moles/Vol] 25 mmol/L 22 - 32 mmol/L [facility] Creatinine [Mass/Vol] 0.97 mg/dL 0.60 - 1.30 mg/dL [facility] [employer] GFR/1.73 sq M.predicted among non-blacks MDRD (S/P/Bld) [Vol rate/Area] 64 mL/min/{1.73_m2} - [facility] Comment on above: Effective July 27, 2022, calculation based on the Chronic Kidney Disease Epidemiology Collaboration (CKD-EPI) equation refit without adjustment for race. Glucose [Mass/Vol] 132 mg/dL High 70 - 99 mg/dL [facility] Interpretation and review of laboratory results Abnormal [facility] Potassium [Moles/Vol] 4.6 mmol/L 3.6 - 5.1 mmol/L [facility] Sodium [Moles/Vol] 139 mmol/L 136 - 145 mmol/L [facility] [employer] Urea nitrogen [Mass/Vol] 19 mg/dL 8 - 20 mg/dL [facility] Urea nitrogen/Creatinine [Mass ratio] 19.6 mg/mg 12.0 - 20.0 [facility] Glucose Auto test strip (Bld ) [Mass/Vol]on 10-03-2022 Glucose [Mass/Vol] 122 mg/dL High 70-99 [facility] Comment on above: Performed By: #### 6 36-1 #### [facility] ([facility] [address] [place] [address] Glucose [Mass/Vol] 122 mg/dL High 70 - 99 mg/dL [facility] Interpretation and review of laboratory results Abnormal [facility] Glucose [Mass/Vol] 150 mg/dL High 70-99 [facility] Comment on above: Performed By: #### 6 35-3 #### [facility] [address] [place] [address] Glucose [Mass/Vol] 150 mg/dL High 70 - 99 mg/dL [facility] Interpretation and review of laboratory results Abnormal [facility] Glucose [Mass/Vol] 116 mg/dL High 70-99 [facility] Comment on above: Performed By: #### 6 35-3 #### [facility] [address] [place] [address] Glucose [Mass/Vol] 116 mg/dL High 70 - 99 mg/dL [facility] Interpretation and review of laboratory results Abnormal [facility] Glucose [Mass/Vol] 115 mg/dL High 70-99 [facility] Comment on above: Performed By: #### 6 35-3 #### [facility] ([facility] [address] [place] [address] Glucose [Mass/Vol] 115 mg/dL High 70 - 99 mg/dL [facility] Interpretation and review of laboratory results Abnormal [facility] Hemogram and platelets WO di fferential panel (Bld)on 10-03-2022 Erythrocyte distribution width (RBC) [Ratio] 13.9 % Normal 11.0-14.8 [facility] Comment on above: Performed By: #### 3 4556-1 #### [facility] [address] [place] [address] Hematocrit (Bld) [Volume fraction] 40.6 % Normal 34.3-47.9 [facility] Comment on above: Performed By: #### 3 4556-1 #### [facility] [address] [place] [address] Hemoglobin (Bld) [Mass/Vol] 13.0 g/dL Normal 12.0-16.0 [facility] Comment on above: Performed By: #### 3 4556-1 #### [facility] [address] [place] [address] MCH 28.8 pcg Normal 27.0-34.0 [facility] Comment on above: Performed By: #### 3 4556-1 #### [facility] [address] [place] [address] MCHC (RBC) [Mass/Vol] 32.0 g/dL Normal 30.8-35.3 [facility] Comment on above: Performed By: #### 3 4556-1 #### [facility] [address] [place] [address] MCV (RBC) [Entitic vol] 89.8 fL Normal 80.0-97.0 [facility] Comment on above: Performed By: #### 3 4556-1 #### [facility] [address] [place] [address] Platelet mean volume (Bld) [Entitic vol] 10.0 fL Normal 6.2-12.1 [facility] Comment on above: Performed By: #### 3 4556-1 #### [facility] [address] [place] [address] Platelets (Bld) [#/Vol] 243 10*3/uL Normal 142-424 [facility] Comment on above: Performed By: #### 3 4556-1 #### [facility] [address] [place] [address] RBC (Bld) [#/Vol] 4.52 10*6/uL Normal 3.74-5.34 [facility] Comment on above: Performed By: #### 3 4556-1 #### [facility] [address] [place] [address] WBC (Bld) [#/Vol] 10.2 10*3/uL Normal 4.6-10.2 [facility] Comment on above: Performed By: #### 3 4556-1 #### [facility] [address] [place] [address] Erythrocyte distribution width (RBC) [Ratio] 13.9 % 11.0 - 14.8 % [facility] Hematocrit (Bld) [Volume fraction] 40.6 % 34.3 - 47.9 % [facility] Hemoglobin (Bld) [Mass/Vol] 13.0 g/dL 12.0 - 16.0 g/dL [facility] Interpretation and review of laboratory results Normal [facility] MCH (RBC) [Entitic mass] 28.8 pg [facility] MCHC (RBC) [Mass/Vol] 32.0 g/dL 30.8 - 35.3 g/dL [facility] MCV (RBC) [Entitic vol] 89.[address] [facility] Platelet mean volume (Bld) [Entitic vol] 10.0 fL [facility] Platelets (Bld) [#/Vol] 243 10*3/uL [facility] RBC (Bld) [#/Vol] 4.52 10*6/uL [facility] WBC (Bld) [#/Vol] 10.2 10*3/uL [facility] Pathology studyOrdered By: Lona Morel on 10-03-2022 Citation Jeff (Reference lab test) [id number] moDrPVGrpEPuR6EuvaqtVSpb UF4uJY1liIkeyDLosUBtQUCz NoSmf8cwn751hGTtc3zaMNUI wulgvKg0w5pnJCZGAPevHJAN YSk8dSkqE92zx5Q1DqtgE3rl NOIpAYkaarGvkbI2LMOxtNQh WSw5DSSifYZmudAtTaHwXWLf bDZfpSI5XUNuME6hjjnmMZjh EFawQCYvsfX1QOGazWCcN9Hy OMDnEX8mdxigQHA4TWosWPPh PYY8FwOwPIAdy3Pxeyk1JiWl cGFyZFxwbGFpblxpXGYxXGZz THrbU8DkOYInGVW9FURavtyq QSneX60zoH9cZU89UJtgsgGl QFLqk9YqMWQnRQWhHDbiFBWr faObRFthlA8yn1i5IQijPl3h JKCfbeuiLVJ5IjNdNM89Hdst dHJlZSBBdmUsIENvbHVtYnVz VMCSwUziHQOiTgO4HlWEjBDe j0Sop6EdVxTzkEVvfO2cnVgy hwB3RFUelPHdZq0ifNBmHvxc YXJ9 [place] [employer] Work Phone: Microscopic description Jeff (Endomyocardium) u6ixcJYkFESacBVRCRYoHLMr KB0vxFqveBe1wRezJSBoubI0 jHEbUQlos7rrRIL4m7qmtsUW CdseYXBpHZ9vVMhfDSNaWZ0z ZmUwXGRlZmYyXHBhcGVydzEy RzTxUFRfjYYufKS2HNUnVW1x chohSAkiSAlvQCTiqiS9EQSs jOZeD1SkEKOySZ4rdvuiPFP5 RWSIAaxgMf8ytTPggHDUGayj ZjFcZmNoYXJzZXQwXGZuaWwg RHJqMEj7oZ4Vj6zrOxzcJ7qz vjXilVItUn5djMQKLVkrSWIG YGa6iG4MFSGhN2NfLW2Mo0mf IXHjfXMvVRC4IBczp3ncSHws MAY8QLLxQYGgZIOoTE6AYcKy ATB3SwM5XJX4SgJ4VLz3GVXR MMKtLke4WuRtALq7OAk6VPso zofwWUa8HWJmGIxruVFsFK7n oWqxAtqocSrws5EdzIAlFOWh IFxcaWQgNTEwMDIgXFxkYiBP PeWqJhRqAkP4SxD8NrEbTRk0 BEvjP4AIKADaPPH4YZp6XfM5 HrB6EVl3LPAGLs4mXeQlWOg7 YDl1DNC5MGV7HeCnHIInPdPl TUErTVOjFQrynXQkGN6wuIaq HRQpMN4ZDNRzUQamCFBlACAc MvGcBC7lO65pTChoPPCdzFxy PfYaXSVgpAPvmWWuwYZxc0G3 tGFxBRf8cECmt4G9nCktDVes ZmlsdHJhdGVzOlxwYXIgDQpc cGFyZCANClxwbGFpblxmMVxm beOlDADgIWbwSAy0buOiWROl LwKqBQMmW09ti3BIr0NaWC8B SIh9pzEofdpckE1sSAUzcyKa DQpcZjFcZnMyMCBSZWNlaXZl ROLnqdUjt8BxUYgmiuUkCGMz cDPnJLqtnUbdqCL5kKLyuXJl GY8uWAIcOSMnHKteXfXyq98i ZOMnwRUxWLN3MGKkKSEhS7Jh G6G9VJBeJjEsgIMqdlRacVKd qZ2unqr2lY4bMUKqMMZwcAYb gF2exwZyndDpAJG9sG3mZCLp VU1lLWQupZBdz0SjtAY6oYNi zDwnr2TklCl9bOPiHSuaYZTz q9AyTEZaGesgSFXiYQflwMTh IU4WGFNhVcSsPDScI7llBCMx HW6AMSwpxolNAzuvOKCfOMNd S0tiWXFuTPloCSNzC12cl5XY a8Ybn1sgiCaff3LzvEVjZL98 OJHlqIKdYNK9LR0aeZrhKFQq DQpcZjJcZnMyMiANCn0= [employer]: Pathology report final diagnosis Narrative w0famKPcCCBppJVvUZJhCsxf ngZyJRXnqDIrU8VlwjxnEGvw DG3mHA9xwNdtfKQgkVSwJBKm VuCfd6oqd400aTCxr3ezRPVO fujuhCm2fRzdF09lv5S7Hnzf H7zjAQLcUQoxVBYaDHgnhVPj VNj8WSBpaNJpaeRcScMyLIIa iXQweNG2UNQlMX1egifxPIqo XJifVSCxhbT2WKQfiLBkE4Fa DAUhPD4uraclAUQ0BRzxBCNu PVJ6KnMjAPRcl7Jqodz8DzFa iYo9d0ngRBSyVXQisDveh1iv SJY2BODhpGGgA5hsaU6cFJVk DO8toovod0coMIcnPYkiXNTz bTI5vhF9ZNKlgDHaP7CygO1w EDBcJULsulDkkIlfChJ9TSul eLAzwipfIzHjI04gvEI9pXCz lDJjDHiyLoXga39cFQthrWNt FTMbSBLWDHxfjQx0AGTnb5Bm b7ljmuaqmCAdfbDaxQBnsXEz r7Z2nDQtPLZlaa2reZVcsW3s qLNzhXE8tX1pQkanHEQ7 [employer]: [employer]: Bacteria Spec Anaerobe Culto n 10-02-2022 Bacteria identified Anaer cx Nom (Unsp spec) Culture, Anaerobic Status = F No anaerobes grown after [address] [facility] Comment on above: Performed By: #### 6 35-3 ####[facility] [id number] [place], [place] [id number] Bacteria identified Anaer cx Nom (Unsp spec) Culture, Anaerobic Status = F No anaerobes grown after [address] [facility] Comment on above: Performed By: #### 6 35-3 #### [facility] [place] ([facility] [address] [place] [address] Performed By: #### 1 7856-6 #### [facility] [place] ([facility] [address] [place] [address] Performed By: #### 3 4556-1 #### [facility] [address] [place] [address] Bacteria identified Anaer cx Nom (Unsp spec) Culture, Anaerobic Status = F No anaerobes grown after [address] [facility] Comment on above: Performed By: #### 6 35-3 ####[facility] [id number] [place] [address] Bacteria Spec BFld Culton Bacteria identified Sterile body fluid culture Nom (Unsp spec) Fluid Culture Status = F No growth at 3 days Gram Stain Result Status = F No Polymorphonuclear leukocytes This is an appended report. These results have been appended to a previously preliminary verified report. No Epithelial cells This is an appended report. These results have been appended to a previously preliminary verified report. No organisms seen This is an appended report. These results have been appended to a previously preliminary verified report. Normal [facility] Comment on above: Performed By: #### 3 4556-1 #### [facility] [address] [place] [address] Bacteria Tiss Culton 022 Bacteria identified Cx Nom (Tiss) Culture, Tissue Status = F No growth at 3 days Gram Stain Result Status = F No Polymorphonuclear leukocytes This is an appended report. These results have been appended to a previously preliminary verified report. No Epithelial cells This is an appended report. These results have been appended to a previously preliminary verified report. No organisms seen This is an appended report. These results have been appended to a previously preliminary verified report. Normal [facility] Comment on above: Performed By: #### 6 35-3 #### [facility] ([facility]) LAB [address] [place] [address] Bacteria identified Cx Nom (Tiss) Culture, Tissue Status = F No growth at 3 days Gram Stain Result Status = F No Polymorphonuclear leukocytes This is an appended report. These results have been appended to a previously preliminary verified report. No Epithelial cells This is an appended report. These results have been appended to a previously preliminary verified report. No organisms seen This is an appended report. These results have been appended to a previously preliminary verified report. Normal [facility] Comment on above: Performed By: #### 1 7856-6 #### [facility] ([facility] LAB [address] [place] [address] Performed By: #### 3 4556-1 #### [facility] [address] [place] [address] Performed By: #### 1 1526-1 #### [facility] [address] [place] [address] Cell count panel (Body fld)o n 10-02-2022 Fluid Lymphocytes 71.0 % Normal [facility] Comment on above: Performed By: #### 3 4556-1 #### [facility] [address] [place] [address] Fluid Monocytes/Macrophages 17.0 % Normal [facility] Comment on above: Performed By: #### 3 4556-1 #### [facility] [address] [facility] [place] [address] Fluid Neutrophils 3.0 % Normal [facility] Comment on above: Performed By: #### 3 4556-1 #### [facility] [address] [facility] [place] [address] Fluid Other Cells 9.0 % Normal [facility] Comment on above: Result Comment: Lini ng cells Performed By: #### 3 4556-1 #### [facility] [address] [place] [address] Cell count panel (Body fld)O rdered By: Navin Tracy on 10-02-2022 Clarity (Body fld) [facility]y [facility] Color (Body fld) Yellow [facility] RBC Auto (Body fld) [#/Vol] 5000 /mm3 [facility] Comment on above: The reference range and other method performance specifications have not been established for this fluid specimen. The test result should be integrated into the clinical context for interpretation. Specimen source Nom (Body fld) Synovial [facility] WBC (Body fld) [#/Vol] 167 /mm3 [facility] Comment on above: The reference range and other method performance specifications have not been established for this fluid specimen. The test result should be integrated into the clinical context for interpretation. [facility] Differential panel (Body fld )on 10-02-2022 Lymphocytes/100 WBC Manual cnt (Body fld) 71.0 % [facility] Monocytes+Macrophages/1 00 WBC (Body fld) 17.0 % [facility] Neutrophils/100 WBC (Body fld) 3.0 % [facility] Other cells/100 WBC (Body fld) 9.0 % [facility] Comment on above: Lining cells [facility] [employer] Fungus Skin Culton 2 Fungus identified Cx Nom (Skin) Culture, Fungus Status = F No growth at [address] [facility] Comment on above: Performed By: #### 1 1526-1 #### [facility] [address] [place] [address] Fungus identified Cx Nom (Skin) Culture, Fungus Status = F No growth at [address] [facility] Comment on above: Performed By: #### 1 7856-6 #### [facility] [place] ([facility] LAB [address] [place] [address] Performed By: #### 3 4556-1 #### [facility] ([facility]) [facility] [address] [place] [address] Performed By: #### 6 35-3 #### [facility] [place] ([facility] LAB [address] [place] [address] Fungus identified Cx Nom (Skin) Culture, Fungus Status = F No growth at [address] [facility] Comment on above: Performed By: #### 5 75-1 ####[facility] [place] ([facility] [id number] [place] [address] Glucose Auto test strip (Bld ) [Mass/Vol]on 10-02-2022 Glucose [Mass/Vol] 188 mg/dL High 70-99 [facility] Comment on above: Performed By: #### 6 36-1 #### [facility] [place] [facility] LAB [address] [place] [address] Glucose [Mass/Vol] 188 mg/dL High 70 - 99 mg/dL [facility] Interpretation and review of laboratory results Abnormal [facility] Glucose [Mass/Vol] 121 mg/dL High 70-99 [facility] Comment on above: Performed By: #### 6 35-3 #### [facility] [place] [facility] [address] [place] [address] Glucose [Mass/Vol] 121 mg/dL High 70 - 99 mg/dL [facility] Interpretation and review of laboratory results Abnormal [facility] Glucose [Mass/Vol] 120 mg/dL High 70-99 [facility] Comment on above: Performed By: #### 6 36-1 #### [facility] [place] [facility] LAB [address] [place] [address] Glucose [Mass/Vol] 78 mg/dL 70 - 99 mg/dL [facility] Interpretation and review of laboratory results Normal [facility] Glucose [Mass/Vol] 120 mg/dL High 70 - 99 mg/dL [facility] Interpretation and review of laboratory results Abnormal [facility] Glucose [Mass/Vol] 78 mg/dL Normal 70-99 [facility] Comment on above: Performed By: #### 6 36-1 #### [facility] LAB [address] [place] [address] Mycobacterium Spec Culton Mycobacterium sp identified Org specific cx Nom (Unsp spec) Culture AFB Status = F No growth at 8 weeks AFB Stain Status = F No acid fast bacilli seen Normal [facility] Comment on above: Performed By: #### 1 1526-1 #### [facility] [address] [place] [address] Mycobacterium sp identified Org specific cx Nom (Unsp spec) Culture AFB Status = F No growth at [address] [facility] Comment on above: Performed By: #### 1 7856-6 #### [facility] LAB [address] [place] [address] Mycobacterium sp identified Org specific cx Nom (Unsp spec) Culture AFB Status = F No growth at 8 weeks AFB Stain Status = F No acid fast bacilli seen Normal [facility] Comment on above: Performed By: #### 3 4556-1 #### [facility] [address] [place] [address] Performed By: #### 6 35-3 #### [facility] ([facility]) LAB [address] [place] [address] Mycobacterium sp identified Org specific cx Nom (Unsp spec) Culture AFB Status = F No growth at 8 weeks AFB Stain Status = F No acid fast bacilli seen Normal [facility] Comment on above: Performed By: #### 6 35-3 #### [facility] LAB [address] [place] [address] Pathology studyon 10-02-2022 Pathology study Soft tissue, left kn ee; - Negative for significant perivascular chronic inflammation. A. Knee, Left, Rule out perivascular lymphocytic infiltrates: Received in formalin labeled with patient name and left knee is a 4 cm aggregate of apparent synovium. The specimen is sectioned and representatively submitted in block A1. (zhw) The technical component was performed at [facility], [address] [place] [address]. Microscopic examination was performed. Normal [facility] Comment on above: Performed By: #### 1 1526-1 #### [facility] ([facility] [address] [place] [address] SARS-CoV-2 (COVID-19) RNA NA A+probe Ql (Resp)on 10-02-2022 Interpretation and review of laboratory results Normal [facility] SARS-CoV-2 (COVID-19) RdRp gene TORRES+probe Ql (Resp) Not detected Not Detected [facility] SARS-CoV-2 RNA Resp Ql TORRES+p robeon 10-02-2022 SARS-CoV-2 (COVID-19) RNA TORRES+probe Ql (Resp) Not detected Normal Not Detected [facility] Comment on above: Performed By: #### 3 4556-1 #### [facility] ([facility] [address] [place] [address] XR KNEE 1-2 VIEWS LEFTon XR KNEE 1-2 VIEWS LEFT EXAMINATION TYPE: XR KNEE 1-2 VIEWS LEFT DATE OF EXAM : 10/02/2022 1:29 PM HISTORY: post op in pacu, COMPARISON: NONE FINDINGS: Status post left total knee arthroplasty. Hardware in appropriate position. Gas within and adjacent to the knee joint. Spurring from the patella. There our a few loose bodies in the joint. Skin almita in place. No acute fracture or dislocation. IMPRESSION: 1. Left total knee arthroplasty in appropriate position. -------- FINAL REPORT -------- Dictated By: Vlad Fiore Dictated Date: 10/02/2022 15:21 Assigned Physician: Vlad Fiore Reviewed and Electronically Signed By: Vlad Fiore Signed Date: 10/02/2022 15:22 Workstation ID: [id number] Transcribed By: Self Edit Transcribed Date: 10/02/2022 15:[address] [facility] XR Knee 1-2 Views Lefton 1. Left total knee arthroplasty in appropriate position. -------- FINAL REPORT -------- Dictated By: Vlad Fiore Dictated Date: 10/02/2022 15:21 Assigned Physician: Vlad Fiore Reviewed and Electronically Signed By: Vlad Fiore Signed Date: 10/02/2022 15:22 Workstation ID: [id number] Transcribed By: Self Edit Transcribed Date: 10/02/2022 15:21 POWERSCRIBE EXAMINATION TYPE: XR KNEE 1-2 VIEWS LEFT DATE OF EXAM : 10/02/2022 1:29 PM HISTORY: post op in pacu, COMPARISON: NONE FINDINGS: Status post left total knee arthroplasty. Hardware in appropriate position. Gas within and adjacent to the knee joint. Spurring from the patella. There our a few loose bodies in the joint. Skin almita in place. No acute fracture or dislocation. POWERSCRIBE Vlad Fiore MD - 10/02/2022 EXAMINATION TYPE: XR KNEE 1-2 VIEWS LEFT DATE OF EXAM : 10/02/2022 1:29 PM HISTORY: post op in pacu, COMPARISON: NONE FINDINGS: Status post left total knee arthroplasty. Hardware in appropriate position. Gas within and adjacent to the knee joint. Spurring from the patella. There our a few loose bodies in the joint. Skin almita in place. No acute fracture or dislocation. IMPRESSION: 1. Left total knee arthroplasty in appropriate position. -------- FINAL REPORT -------- Dictated By: Vlad Fiore Dictated Date: 10/02/2022 15:21 Assigned Physician: Vlad Fiore Reviewed and Electronically Signed By: Vlad Fiore Signed Date: 10/02/2022 15:22 Workstation ID: [id number] Transcribed By: Self Edit Transcribed Date: 10/02/2022 15:21 [facility] Study observation (narrative) [facility] XR Knee 1-2 Views LeftOrdere d By: Vlad Fiore on 10-02-2022 Foradian Phone: Office Visit (Cardiology)on 09-25-2022 Follow-up visit Diagnoses/Problems Assessed Chronic right-sided congestive heart failure (428.0) (I50.812) Edema (782.3) (R60.9) Hypotension (458.9) (I95.9) Former smoker (V15.82) (Z87.891) high school smoker Sleep apnea, unspecified type (780.57) (G47.30) SOB (shortness of breath) (786.05) (R06.02) CKD (chronic kidney disease), stage III (585.3) (N18.30) COPD (chronic obstructive pulmonary disease) (496) (J44.9) Diet-controlled diabetes mellitus (250.00) (E11.9) Dizziness (780.4) (R42) Normal coronary angiogram Morbid obesity with BMI of 40.0-44.9, adult (278.01,V85.41) (E66.01,Z68.41) Orders Hypotension Changed: From Midodrine HCl - 2.5 MG Oral Tablet TAKE 1 TABLET Twice daily To Midodrine HCl - 2.5 MG Oral Tablet TAKE 1 TABLET Twice daily as needed for low blood pressure Morbid obesity with BMI of 40.0-44.9, adult Healthy Weight Tips; Status:Complete - Retrospective Authorization; Done: [id number] Some eating tips that can help you lose weight.; Status:Complete - Retrospective Authorization; Done: [id number] SocHx: Former smoker Tobacco Use Screening; Status:Complete; Done: [id number] Patient Instructions Please bring all medicines, vitamins, and herbal supplements with you when you come to the office. Prescriptions will not be filled unless you are compliant with your follow up appointments or have a follow up appointment scheduled as per instruction of your physician. Refills should be requested at the time of your visit. patient to trial coming off the Midodrine and using only if she has low blood pressure. Follow up in 1 year. Chief Complaint CASTILLO GRAHAM is being seen for an annual follow-up of. History of Present Illness Patient is here for follow-up continue management for previous evaluation for right heart failure, obesity, sleep apnea and orthostatic hypotension. Since last time I saw her she reports is feeling reasonably well. Her shortness of breath has slightly improved. She lost close to 15 pounds since last time I saw her. Her recent laboratory data noted and reviewed with her. Assessment 1. volume overload and right-sided heart failure. Proved on low-dose diuretic therapy currently compensated 2. History of hypertension controlled occasional orthostatic hypotension she is currently on midodrine according to her no dizziness recently 3. chronic kidney disease creatinine was 1.3 recently 4. Morbid obesity with recent 14 pound weight loss 5. Diet-controlled diabetes mellitus 6. Classic symptoms of sleep apnea with positive sleep study in the past but patient report poor tolerance to CPAP line 7. Patient report previous cardiac catheterization showed no coronary artery disease 8. Orthostatic hypotension improved with midodrine Plan 1. I advised the patient to wean herself gradually off midodrine and to use it only as needed basis 2. I advised the patient to strict her fluid and salt intake 3. I reviewed her previous cardiac work-up and recent echo with her 4. I advised the patient that she should need to consider alternative treatment for her sleep apnea including possible surgery and or implantable device. 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 I reviewed her recent lab work 6. We will see her back in 1 year in follow-up Surgical History Problems History of Appendectomy History of section History of Complete colonoscopy Managed By: Richard Horn MD History of Foot surgery tendonitis History of Gastric bypass surgery History of Knee replacement total bilateral History of Tonsillectomy with adenoidectomy Current Meds Medication NameInstruction Albuterol Sulfate 1.25 MG/3ML Inhalation Nebulization SolutionUSE 1 UNIT DOSE IN NEBULIZER EVERY 4 TO 6 HOURS NEEDED. Alendronate Sodium 70 MG Oral TabletTAKE 1 TABLET ONCE WEEKLY. Allopurinol 100 MG Oral TabletTAKE 2 TABLETS DAILY. Bumetanide 0.5 MG Oral TabletTake 1 tablet twice daily Claritin 10 MG Oral TabletTAKE 1 TABLET DAILY NEEDED. Clopidogrel Bisulfate 75 MG Oral TabletTAKE ONE TABLET BY MOUTH DAILY Ferrous Sulfate 324 (65 Fe) MG Oral Tablet Delayed ReleaseTake 1 tablet daily Fluconazole 100 MG Oral TabletTAKE 1 TABLET DAILY DIRECTED. PRN Fluticasone Propionate 50 MCG/ACT Nasal SuspensionUSE 1 SPRAY IN EACH NOSTRIL ONCE DAILY. PRN Gabapentin 300 MG Oral CapsuleTAKE 1 CAPSULE 3 TIMES DAILY. hydrOXYzine HCl - 10 MG Oral TabletTAKE 1 TO 2 TABLETS BY MOUTH THREE TIMES A DAY NEEDED FOR ITCHING FOR 30 DAYS Magnesium Oxide 400 (241.3 Mg) MG TABSTake 1 tablet daily Midodrine HCl - 2.5 MG Oral TabletTAKE 1 TABLET Twice daily Mounjaro 2.5 MG/0.5ML Subcutaneous Solution Pen-injectoras directed Ondansetron HCl - 4 MG Oral TabletTAKE ONE TABLET BY MOUTH THREE TIMES A DAY NEEDED FOR NAUSEA AND VOMITING Pantoprazole Sodium 40 MG Oral Tablet Delayed ReleaseTAKE 1 TABLET TWICE DAILY 30 MINUTES BEFORE BREAKFAST AND DINNER. Symbicort 160-4.5 MCG/ACT Inhalation AerosolUSE (more content not included)... Normal [facility] Tobacco Screening.on 022 Fall risk assessment a) No falls within the last year [facility]re[facility] y 250 DO Work Phone: Tobacco use status CP b) No M [facility] y 250 DO Work Phone: Tobacco Screening. Yes [facility] y 250 DO Work Phone: PTH INTACTon 09-24-2022 PTH, Intact 31 pg/mL Normal 15-65 [facility] Comment on above: Performed By: #### P THINT ####[facility] [address] [place] [address]Dr. Kyree Neal HEMOGRAM AND PLATELon 2021 Hematocrit (Bld) [Volume fraction] 38.4 % Normal 36.0-48.0 [facility] Comment on above: Performed By: #### H H #### [facility] [address] [place] [address] [address] Kyree Neal Hemoglobin (Bld) [Mass/Vol] 12.2 g/dL Normal 12.0-16.0 [facility] Comment on above: Performed By: #### H H #### [facility] [address] [place] [address] [address] Kyree Neal MCH (RBC) [Entitic mass] 28.6 pg Normal 26.7-34.0 [facility] Comment on above: Performed By: #### H H #### [facility] [address] [place] [address] [address] Kyree Neal MCHC (RBC) [Mass/Vol] 31.8 g/dL Normal 29.9-35.2 [facility] Comment on above: Performed By: #### H H #### [facility] [address] [place] [address] [address] Kyree Neal MCV (RBC) [Entitic vol] 89.9 fL Normal 81.0-99.0 [facility] Comment on above: Performed By: #### H H #### [facility] [address] [place] [address] [address] Kyree Neal PLT 250 103/ul Normal 150-450 [facility] Comment on above: Performed By: #### H H #### [facility] [address] [place] [address] [address] Kyree Neal RBC 4.27 106/ul Normal 4.20-5.40 [facility] Comment on above: Performed By: #### H H #### [facility] [address] [place] [address] [address] Kyree Neal WBC 7.7 103/ul Normal 4.0-11.0 [facility] Comment on above: Performed By: #### H H #### [facility] [address] [place] [address] [address] Kyree Neal MAGNESIUMon 09-23-2022 Magnesium [Mass/Vol] 2.2 mg/dL Normal 1.8-2.4 [facility] Comment on above: Performed By: #### U PRUDENCIO, CMP, MG ####[facility] [address] [place] [id number]. Kyree Neal PROF 14(COMP METB)on 022 Albumin [Mass/Vol] 3.5 g/dL Normal 3.4-5.0 [facility] Comment on above: Performed By: #### U PRUDENCIO, CMP, MG ####[facility] [address] [place] [phone]. Kyree Neal Albumin/Globulin [Mass ratio] 0.9 {ratio} Normal [facility] Comment on above: Performed By: #### U PRUDENCIO, CMP, MG ####[facility] [address] [place] [address]Dr. Kyree Neal ALP [Catalytic activity/Vol] 61 U/L Normal 46-116 [facility] Comment on above: Performed By: #### U PRUDENCIO, CMP, MG ####[facility] [address] [place] [address]Dr. Kyree Neal ALT [Catalytic activity/Vol] 23 U/L Normal 14-59 [facility] Comment on above: Performed By: #### U PRUDENCIO, CMP, MG ####[facility] [address] [place] [address]Dr. Kyree Neal Anion gap [Moles/Vol] 9.9 mmol/L Normal [facility] Comment on above: Performed By: #### U PRUDENCIO, CMP, MG ####[facility] [address] [place], [place] [address]Dr. Kyree Neal AST [Catalytic activity/Vol] 21 U/L Normal 15-37 [facility] Comment on above: Performed By: #### U PRUDENCIO, CMP, MG ####[facility] [address] [place], [place] [address]Dr. Kyree Neal Bilirubin [Mass/Vol] 0.3 mg/dL Normal 0.2-1.0 [facility] Comment on above: Performed By: #### U PRUDENCIO, CMP, MG ####[facility] [address] [place], [place] [address]Dr. Kyree Neal Calcium [Mass/Vol] 9.0 mg/dL Normal 8.5-10.1 [facility] Comment on above: Performed By: #### U PRUDENCIO, CMP, MG ####[facility] [address] [place], [place] [address]Dr. Kyree Neal Chloride [Moles/Vol] 106 mmol/L Normal 98-107 [facility] Comment on above: Performed By: #### U PRUDENCIO, CMP, MG ####[facility] [address] [place] [address]Dr. Kyree Neal CO2 [Moles/Vol] 29.4 mmol/L Normal 21.0-32.0 [facility] Comment on above: Performed By: #### U PRUDENCIO, CMP, MG ####[facility] [address] [place] [address]Dr. Kyree Neal Creatinine [Mass/Vol] 0.90 mg/dL Normal 0.55-1.02 [facility] Comment on above: Performed By: #### U PRUDENCIO, CMP, MG ####[facility] [address] [place] [address]Dr. Kyree Neal EGFR-AF KENYAN >60 Normal >=60 [facility] Comment on above: Performed By: #### U PRUDENCIO, CMP, MG ####[facility] [address] [place] [address]Dr. Kyree Neal EGFR-NON AF KENYAN >60 Normal >=60 [facility] Comment on above: Performed By: #### U PRUDENCIO, CMP, MG ####[facility] [address] [place] [address]Dr. Kyree Neal Globulin (S) [Mass/Vol] 3.8 g/dL Normal [facility] Comment on above: Performed By: #### U PRUDENCIO, CMP, MG ####[facility] [address] [place] [address]Dr. Kyree Neal Glucose [Mass/Vol] 89 mg/dL Normal 74-106 [facility] Comment on above: Performed By: #### U PRUDENCIO, CMP, MG ####[facility] [address] [place] [address]Dr. Kyree Neal Potassium [Moles/Vol] 4.3 mmol/L Normal 3.5-5.1 [facility] Comment on above: Performed By: #### U PRUDENCIO, CMP, MG ####[facility] [address] [place] [address]Dr. Kryee Nela Protein [Mass/Vol] 7.3 g/dL Normal 6.4-8.2 [facility] Comment on above: Performed By: #### U PRUDENCIO, CMP, MG ####[facility] [address] [place] [id number] Neal Sodium [Moles/Vol] 141 mmol/L Normal 136-145 [facility] [facility] Comment on above: Performed By: #### U PRUDENCIO, CMP, MG ####[facility] [address] [address]DrDulce Neal Urea nitrogen [Mass/Vol] 18.0 mg/dL Normal 7.0-18.0 [facility] Comment on above: Performed By: #### U PRUDENCIO, CMP, MG ####[facility] [address] [address]Dr. Kyree Neal Urea nitrogen/Creatinine [Mass ratio] 20.0 mg/mg Normal [facility] Comment on above: Performed By: #### U PRUDENCIO, CMP, MG ####[facility] [address] [address]DrDulce Neal UA RANDOMon 09-23-2022 Bilirubin Ql (U) Negative Normal NEGATIVE [facility] Comment on above: Performed By: #### S EDR #### [facility] [address] [address] [address] Kyree Neal Clarity (U) CLEAR Normal CLEAR [facility] Comment on above: Performed By: #### S EDR #### [facility] [address] [address] [address] Kyree Neal Color (U) YELLOW Normal YELLOW [facility] Comment on above: Performed By: #### S EDR #### [facility] [address] [address] [address] Kyree Neal Glucose Ql (U) Negative Normal NEGATIVE [facility] Comment on above: Performed By: #### S EDR #### [facility] [address] [address] [address] Kyree Neal Hemoglobin Ql (U) Negative Normal NEGATIVE [facility] Comment on above: Performed By: #### S EDR #### [facility] [address] [address] [address] Kyree Neal Ketones Ql (U) Negative Normal NEGATIVE [facility] Comment on above: Performed By: #### S EDR #### [facility] [address] [address] [address] Kyree Neal LEUKOCYTES Negative Normal NEGATIVE [facility] Comment on above: Performed By: #### S EDR #### [facility] [address] [address] [address] Kyree Neal Nitrite Ql (U) Negative Normal NEGATIVE [facility] Comment on above: Performed By: #### S EDR #### [facility] [address] [address] [address] Kyree Neal pH (U) 5.5 [pH] Normal 5-9 [facility] Comment on above: Performed By: #### S EDR #### [facility] [address] [address] [address] Kyree Neal SPEC GRAVITY 1.025 Normal 1.005-<=1. 025 [facility] Comment on above: Performed By: #### S EDR #### [facility] [address] [address] [address] Kyree Neal UA PROTEIN Negative Normal NEGATIVE/ TRACE [facility] Comment on above: Performed By: #### S EDR #### [facility] [address] [place] [address] Dr. Kyree Neal Urobilinogen Qn (U) 0.2 {Herrera'U}/dL Normal 0.2 - 1. 0 [facility] Comment on above: Performed By: #### S EDR #### [facility] [address] [address] [address] Kyere Neal URIC ACID SERUMon 09-23-2022 Urate [Mass/Vol] 3.7 mg/dL Normal 2.6-6.0 [facility] Comment on above: Performed By: #### U PRUDENCIO, CMP, MG ####[facility] [address] [place], [place] [address]Dr. Kyree Neal URINE T PROTEIN CREAT RATIOo n 09-23-2022 Protein (U) [Mass/Vol] 11.1 mg/dL Normal <=12.0 [facility] Comment on above: Performed By: #### U RTPCR ####[facility] [address] [place], [place] [address]Di. Kyree Neal UR PROT CREAT RAT 0.18 Normal [facility] Comment on above: Performed By: #### U RTPCR ####[facility] [address] [place], [place] [address]Gm. Kyree Neal URINE CREAT 62.29 mg/dL Normal 20.00-300. 00 [facility] Comment on above: Performed By: #### U RTPCR ####[facility] [address] [place], [place] [address]So. Kyree Neal VITAMIN D 25 OHon 09-23-2022 VIT D 25-OH 57.7 ng/mL Normal [facility] Comment on above: Performed By: #### H H #### [facility] [address] [place] [address] Dr. Kyree Neal VIT D RANGES SEE BELOW Normal [facility] Comment on above: Result Comment: <20 ng/mL Vit D deficient 20 - <30 ng/mL Vit D insufficient 30 - 100 ng/mL Vit D sufficient >100 ng/mL Potential Toxicity Performed By: #### H H #### [facility] [address] [address] [address] Kyree Neal CRP [Mass/Vol]on 09-19-2022 Anion gap [Moles/Vol] 9 mmol/L Normal 6-18 [facility] Comment on above: Performed By: #### 1 988-5 #### [facility] ([facility] [address] [place] [address] Calcium [Mass/Vol] 9.3 mg/dL Normal 8.9-10.3 [facility] Comment on above: Performed By: #### 1 988-5 #### [facility] ([facility] [address] [place] [address] Chloride [Moles/Vol] 108 mmol/L High 98-107 [facility] Comment on above: Performed By: #### 1 988-5 #### [facility] [address] [place] [address] CO2 [Moles/Vol] 25 mmol/L Normal 22-32 [facility] Comment on above: Performed By: #### 1 988-5 #### [facility] [address] [place] [address] Creatinine [Mass/Vol] 1.04 mg/dL Normal 0.60-1.30 [facility] Comment on above: Performed By: #### 1 988-5 #### [facility] [address] [place] [address] GFR/1.73 sq M.predicted among non-blacks MDRD (S/P/Bld) [Vol rate/Area] 59 mL/min/{1.73_m2} Low >=60 [facility] Comment on above: Result Comment: Effe ctive July 27, 2022, calculation based on the?Chronic Kidney Disease Epidemiology Collaboration (CKD-EPI) equation refit?without adjustment for race. Performed By: #### 1 988-5 #### [facility] [address] [place] [address] Glucose [Mass/Vol] 79 mg/dL Normal 70-99 [facility] Comment on above: Performed By: #### 1 988-5 #### [facility] [address] [place] [address] Potassium [Moles/Vol] 4.7 mmol/L Normal 3.6-5.1 [facility] Comment on above: Performed By: #### 1 988-5 #### [facility] [address] [place] [address] Sodium [Moles/Vol] 142 mmol/L Normal 136-145 [facility] Comment on above: Performed By: #### 1 988-5 #### [facility] [address] [place] [address] Urea nitrogen [Mass/Vol] 21 mg/dL High 8-20 [facility] Comment on above: Performed By: #### 1 988-5 #### [facility] [address] [facility] [place] [address] Urea nitrogen/Creatinine [Mass ratio] 20.2 mg/mg High 12.0-20.0 [facility] Comment on above: Performed By: #### 1 988-5 #### [facility] [address] [facility] [place] [address] HbA1c HPLC (Bld) [Mass fract ion]on 09-19-2022 HbA1c (Bld) [Mass fraction] 5.6 % Normal <=5.6 [facility] Comment on above: Result Comment: HbA1 c values of 5.7-6.4 percent indicate an increased risk for developing diabetes mellitus. HbA1c values greater than or equal to 6.5 percent are diagnostic of diabetes mellitus. For diagnosis of diabetes in individuals without unequivocal hyperglycemia, results should be confirmed by repeat testing. Performed By: #### 1 7856-6 #### [facility] ([facility]) [facility] [address] [place] [address] Mean Bld Glu Estim. 114 mg/dL Normal [facility] Comment on above: Performed By: #### 1 7856-6 #### [facility] [address] [place] [address] Hemogram and platelets WO di fferential panel (Bld)on 09-19-2022 Sed Rate 18 mm/hr Normal 0-20 [facility] Comment on above: Performed By: #### 6 35-3 #### [facility] [address] [place] [address] A1C HEMOGLOBINon 08-18-2022 HbA1c (Bld) [Mass fraction] 5.7 % [employer] Other HbA1c (Bld) [Mass fraction]o n 08-18-2022 A1C HEMOGLOBIN [facility] Other Urine culture routineOrdered By: Deidra Lee on 05-29-2022 Bacteria identified Cx Nom (U) Escherichia coli [facility] Automated erythrocytes count in urine sediment (number/area)Ordered By: Deidra Lee on 05-27-2022 RBC Auto (Urine sed) [#/Area] 10-19 [HPF] 0-4 [facility] Automated leukocytes count i n urine sediment (number/area)Ordered By: Deidra Lee on 05-27-2022 WBC Auto (Urine sed) [#/Area] 20-49 [HPF] 0-4 [facility] Bilirubin Test strip Ql (U)O rdered By: Deidra Lee on 05-27-2022 Bilirubin Ql (U) Negative Negative [facility] Color Auto (U)Ordered By: Sayda Lee on 05-27-2022 Color (U) Yellow Yellow [facility] Ketones Auto test strip (U) [Mass/Vol]Ordered By: Deidra Lee on 05-27-2022 Ketones (U) [Mass/Vol] Negative Negative [facility] - UrinalysisOrder ed By: Deidra Lee on 05-27-2022 Hyaline casts LM Ql (Urine sed) 0-8 [LPF] 0-8 [facility] Nitrite Test strip Ql (U)Ord ered By: Deidra Lee on 05-27-2022 Nitrite Ql (U) Negative Negative [facility] Protein Auto test strip (U) [Mass/Vol]Ordered By: Deidra Lee on 05-27-2022 Protein (U) [Mass/Vol] Negative Negative [facility] Specific gravity Auto test s trip (U) [Rel density]Ordered By: Deidra Lee on 05-27-2022 Specific gravity (U) [Rel density] 1.007 1.001-1.03 0 [facility] Squamous epithelial cells de tection in urine sediment by light microscopyOrdered By: Deidra Lee on 05-27-2022 Epithelial cells.squamous LM Ql (Urine sed) None seen [HPF] 0-2 [facility] Urine bacteria detection by automated methodOrdered By: Deidra Lee on 05-27-2022 Bacteria Auto Ql (U) 2+ None Seen [facility] Urine clarity by refractomet ry automatedOrdered By: Deidra Lee on 05-27-2022 Clarity Refractometry automated (U) Clear Clear [facility] Urine glucose measurement by automated test strip (mass/volume)Ordered By: Deidra Lee on 05-27-2022 Glucose Auto test strip (U) [Mass/Vol] Normal mg/dL Normal [facility] Urine hemoglobin detection b y automated test stripOrdered By: Deidra Lee on 05-27-2022 Hemoglobin Auto test strip Ql (U) 2+ Negative [facility] Urine leukocyte esterase det ection by automated test stripOrdered By: Deidra Lee on 05-27-2022 Leukocyte esterase Auto test strip Ql (U) 3+ Negative [facility] Urobilinogen Auto test strip (U) [Mass/Vol]Ordered By: Deidra Lee on 05-27-2022 Urobilinogen (U) [Mass/Vol] Normal mg/dL Normal [facility] pH Auto test strip (U)Ordere d By: Deidra Lee on 05-27-2022 pH (U) 5.5 [pH] 5.0-9.0 [facility] Basophils Auto (Bld) [#/Vol] Ordered By: Conrad Sosa on 05-21-2022 Basophils (Bld) [#/Vol] 0.1 10*3/uL 0.0-0.2 [facility] Basophils/100 WBC Auto (Bld) Ordered By: Conrad Sosa on 05-21-2022 Basophils/100 WBC (Bld) 0.8 % . [facility] [place] Blood hemoglobin measurement (mass/volume)Ordered By: Conrad Sosa on 05-21-2022 Hemoglobin (Bld) [Mass/Vol] 12.8 g/dL 11.8-15.4 [facility] Blood leukocytes automated c ount (number/volume)Ordered By: Conrad Sosa on 05-21-2022 WBC (Bld) [#/Vol] 8.5 10*3/uL 4.5-11.0 [facility] Body fluid albumin measureme nt (mass/volume)Ordered By: Conrad Sosa on 05-21-2022 Albumin (Body fld) [Mass/Vol] 3.7 g/dL 3.2-5.5 [facility] Cholesterol [Mass/volume] in Serum or PlasmaOrdered By: Conrad Sosa on 05-21-2022 Cholesterol [Mass/Vol] 204 mg/dL 140-200 [facility] Comment on above: Chol less than 200 m g/dl low risk Chol 201-239 mg/dl borderline risk Chol 240 mg/dl and greater high risk Cholesterol in LDL Calc [Mas s/Vol]Ordered By: Conrad Sosa on 05-21-2022 Cholesterol in LDL [Mass/Vol] 129 mg/dL 0-100 [facility] Comment on above: LDL ATP III CLASSIFI CATION LDL less than 100 mg/dL Optimal LDL 100-129 mg/dL Near or above optimal LDL 130-159 mg/dL Borderline high LDL 160-189 mg/dL High LDL greater than 189 mg/dL Very high Cholesterol in VLDL Calc [Ma ss/Vol]Ordered By: Conrad Sosa on 05-21-2022 Cholesterol in VLDL [Mass/Vol] 20 mg/dL [facility] Creatinine [Mass/volume] in UrineOrdered By: Conrad Sosa on 05-21-2022 Creatinine (U) [Mass/Vol] 185.2 mg/dL [facility] Comment on above: No reference range e stablished Creatinine and Glomerular fi ltration rate.predicted panel (S/P/Bld)Ordered By: Conrad Sosa on 05-21-2022 Creatinine [Mass/Vol] 1.31 mg/dL 0.44-1.03 [facility] Eosinophils Auto (Bld) [#/Vo l]Ordered By: Cornad Sosa on 05-21-2022 Eosinophils (Bld) [#/Vol] 0.3 10*3/uL 0.0-0.45 [facility] Eosinophils/100 WBC Auto (Bl d)Ordered By: Conrad Sosa on 05-21-2022 Eosinophils/100 WBC (Bld) 3.4 % . [facility] Erythrocyte distribution wid th Auto (RBC) [Ratio]Ordered By: Conrad Sosa on 05-21-2022 Erythrocyte distribution width (RBC) [Ratio] 14.8 % 11.9-15.3 [facility] Estimated glomerular filtrat ion rate (GFR) non- AmericanOrdered By: Conrad Sosa on 05-21-2022 GFR/1.73 sq M.predicted among non-blacks MDRD (S/P/Bld) [Vol rate/Area] 41 mL/Min [facility] Folate [Mass/volume] in Seru m or PlasmaOrdered By: Conrad Sosa on 05-21-2022 Folate [Mass/Vol] ng/mL >5.9 [facility] Comment on above: Folate reference ran ge: >5.9 ng/ml The WHO technical consultation on folate and vitamin b12 deficiencies has determined that folate concentrations less than 4 ng/ml are considered deficient. Globulin Calc (S) [Mass/Vol] Ordered By: Conrad Sosa on 05-21-2022 Globulin (S) [Mass/Vol] 2.7 g/dL [facility] [place] [facility] Hematocrit Auto (Bld) [Volum e fraction]Ordered By: Conrad Sosa on 05-21-2022 Hematocrit (Bld) [Volume fraction] 39.9 % 34.0-46.4 [facility] - Chemistry and C hemistry - challengeOrdered By: Conrad Sosa on 05-21-2022 Cobalamin (Vitamin B12) [Mass/Vol] 384 pg/mL 180-914 [facility] - Hematology and Cell countsOrdered By: Conrad Sosa on 05-21-2022 Nucleated RBC/100 WBC (Bld) [Ratio] 0.1 % 0-0.5 [facility] Lymphocytes Auto (Bld) [#/Vo l]Ordered By: Conrad Sosa on 05-21-2022 Lymphocytes (Bld) [#/Vol] 1.9 10*3/uL 1.00-4.8 [facility] Lymphocytes/100 WBC Auto (Bl d)Ordered By: Conrad Sosa on 05-21-2022 Lymphocytes/100 WBC (Bld) 22.6 % . [facility] MCH Auto (RBC) [Entitic mass ]Ordered By: Conrad Sosa on 05-21-2022 MCH (RBC) [Entitic mass] 28.2 pg 24.7-34.3 [facility] MCHC Auto (RBC) [Mass/Vol]Or dered By: Conrad Sosa on 05-21-2022 MCHC (RBC) [Mass/Vol] 32.0 g/dL 32.0-35.0 [facility] MCV Auto (RBC) [Entitic vol] Ordered By: Conrad Sosa on 05-21-2022 MCV (RBC) [Entitic vol] 87.9 fL 80-100 [facility] [place] Monocytes Auto (Bld) [#/Vol] Ordered By: Conrad Sosa on 05-21-2022 Monocytes (Bld) [#/Vol] 0.7 10*3/uL 0.0-0.8 [facility] Monocytes/100 WBC Auto (Bld) Ordered By: Conrad Sosa on 05-21-2022 Monocytes/100 WBC (Bld) 8.4 % . [facility] [place] Neutrophils Auto (Bld) [#/Vo l]Ordered By: Conrad Sosa on 05-21-2022 Neutrophils (Bld) [#/Vol] 5.5 10*3/uL 1.8-7.7 [facility] Neutrophils/100 WBC Auto (Bl d)Ordered By: Conrad Sosa on 05-21-2022 Neutrophils/100 WBC (Bld) 64.8 % . [facility] No Panel InformationOrdered By: Conrad Sosa on 05-21-2022 25-Hydroxy Vitamin D Total 50.4 ng/mL 30-100 [facility] Comment on above: VITAMIN D STATUS 25( [place])VITAMIN D RANGE (ng/mL) Deficient <20 Insufficient 20 to <30 Sufficient 30 to 100 Reference: Lubna MF,Aleida NC, Tavo EDWARDS, et al. Evaluation,treatment, and prevention of vitamin D deficiency; an Endocrine Society clinical practice guideline. JCEM. 2010; 96(7):1911-30. Estimated GFR () 49 mL/Min [facility] Comment on above: GFR estimated refere nce range: According to KDOQI guidelines, <60 ml/min/1.73m2 is sufficient to diagnose a patient with chronic kidney disease. Pharmacy Creatinine Clearance (Chem N/A [facility] Platelet mean volume Auto (B ld) [Entitic vol]Ordered By: Conrad Sosa on 05-21-2022 Platelet mean volume (Bld) [Entitic vol] 8.4 fL 6.3-10.7 [facility] Platelets Auto (Bld) [#/Vol] Ordered By: Conrad Sosa on 05-21-2022 Platelets (Bld) [#/Vol] 240 10*3/uL 150-450 [facility] Protein [Mass/volume] in Ser um or PlasmaOrdered By: Conrad Sosa on 05-21-2022 Protein [Mass/Vol] 6.4 g/dL 6.1-7.9 [facility] RBC Auto (Bld) [#/Vol]Ordere d By: Conrad Sosa on 05-21-2022 RBC (Bld) [#/Vol] 4.54 10*6/uL 3.60-5.00 [facility] Serum or plasma alanine victoria otransferase measurement without P-5'-P (enzymatic activiOrdered By: Conrad Sosa on 05-21-2022 ALT No additional P-5'-P [Catalytic activity/Vol] 27 U/L 10-60 [facility] Serum or plasma albumin/glob ulin mass ratioOrdered By: Conrad Sosa on 05-21-2022 Albumin/Globulin [Mass ratio] 1.4 {ratio} [facility] Serum or plasma alkaline adams sphatase measurement (enzymatic activity/volume)Ordered By: Conrad Sosa on 05-21-2022 ALP [Catalytic activity/Vol] 59 U/L 32-92 [facility] Serum or plasma aspartate am inotransferase measurement (enzymatic activity/volume)Ordered By: Conrad Sosa on 05-21-2022 AST [Catalytic activity/Vol] 26 U/L 10-42 [facility] Serum or plasma calcium darrell urement (mass/volume)Ordered By: Conrad Sosa on 05-21-2022 Calcium [Mass/Vol] 9.5 mg/dL 8.2-10.2 [facility] Serum or plasma chloride jose surement (moles/volume)Ordered By: Conrad Sosa on 05-21-2022 Chloride [Moles/Vol] 102 mmol/L 95-114 [facility] Serum or plasma glucose darrell urement (mass/volume)Ordered By: Conrad Sosa on 05-21-2022 Glucose [Mass/Vol] 93 mg/dL 70-100 [facility] Comment on above: ADA recommended refe rence range Random Glucose Reference Range is dependent on time and content of last meal. Glucose of more than 200 mg/dL in a nonstressed, ambulatory subject supports the diagnosis of Diabetes Mellitus. Serum or plasma high density lipoprotein (HDL) cholesterol measurementOrdered By: Conrad Sosa on 05-21-2022 Cholesterol in HDL [Mass/Vol] 55 mg/dL 35-85 [facility] Comment on above: HDL CHOL ATP-III CLA SSIFICATION Cardiovascular Risk HDL > or equal to 60 mg/dL LOW HDL < 40 mg/dL HIGH Serum or plasma potassium me asurement (moles/volume)Ordered By: Conrad Sosa on 05-21-2022 Potassium [Moles/Vol] 4.2 mmol/L 3.5-5.1 [facility] Serum or plasma sodium measu rement (moles/volume)Ordered By: Conrad Sosa on 05-21-2022 Sodium [Moles/Vol] 140 mmol/L 136-146 [facility] Serum or plasma total biliru bin measurement (mass/volume)Ordered By: Conrad Sosa on 05-21-2022 Bilirubin [Mass/Vol] 0.4 mg/dL 0.3-1.2 [facility] Serum or plasma total carbon dioxide measurement (moles/volume)Ordered By: Conrad Sosa on 05-21-2022 CO2 [Moles/Vol] 29.5 mmol/L 22.0-30.0 [facility] Serum or plasma total choles terol/high density lipoprotein (HDL) cholesterol mass ratOrdered By: Conrad Sosa on 05-21-2022 Cholesterol.total/Jaimee sterol in HDL [Mass ratio] 3.7 {ratio} <5.0 [facility] Serum or plasma urea nitroge n measurement (mass/volume)Ordered By: Conrad Sosa on 05-21-2022 Urea nitrogen [Mass/Vol] 30 mg/dL 9-23 [facility] TSH DL <= 0.005 mIU/L QnOrde red By: Conrad Sosa on 05-21-2022 TSH Qn 2.03 m[IU]/L 0.45-5.33 [facility] Thyroxine (T4) free [Mass/vo lume] in Serum or PlasmaOrdered By: Conrad Sosa on 05-21-2022 Free T4 [Mass/Vol] 0.96 ng/dL 0.61-1.12 [facility] Triglyceride [Mass/volume] i n Serum or PlasmaOrdered By: Conrad Sosa on 05-21-2022 Triglyceride [Mass/Vol] 102 mg/dL 35-149 [facility] [place] Comment on above: TRIG ATP III CLASSIF ICATION TRIG less than 150 mg/dL Normal TRIG 150-199 mg/dL Borderline high TRIG 200-500 mg/dL High TRIG greater than 500 mg/dL Very high Standard traceable to the Center for Disease Conrtrol and Prevention (CDC) test method. Triiodothyronine (T3) Free [ Mass/volume] in Serum or PlasmaOrdered By: Conrad Sosa on 05-21-2022 Free T3 [Mass/Vol] 3.88 pg/mL 2.50-3.90 [facility] Urine microalbumin measureme nt with detection limit of 20 mg/L or less (mass/volume)Ordered By: Conrad Sosa on 05-21-2022 Albumin DL <= 20 mg/L (U) [Mass/Vol] mg/dL 0.0-1.8 [facility] Urine microalbumin/creatinin e mass ratioOrdered By: Conrad Sosa on 05-21-2022 Albumin/Creatinine DL <= 20 mg/L (U) [Mass ratio] TNP [facility] Comment on above: Test not performed US EXT NON VASC LIMITED LTon 05-08-2022 US EXT NON VASC LIMITED LT EXAMINATION: US EXT NON VASC LIMITED LT HISTORY: Localized swelling of left lower limb COMPARISON: No relevant comparison available. FINDINGS: Ultrasound in the area the patient's pain and mass, left medial thigh demonstrates normal subcutaneous fat superficial to the muscle measuring up to 3.7 cm thick. This is not focal in appearance. IMPRESSION: Subcutaneous fat corresponding to the patient's palpable abnormality, this does not have a typical appearance of a lipoma Electronically authenticated by: ANUSHA AGUERO Date: 2022-05-08 16:18 Normal [facility] C3 and C4 COMPLEMENTon 04-30 Complement C3, Serum 173 mg/dL Critically high 82-167 [facility] Comment on above: Performed By: #### S EDR #### [facility] [address] [address] [address] Kyree Neal Complement C4, Serum 35 mg/dL Normal 12-38 [facility] Comment on above: Performed By: #### S EDR #### [facility] [address] [address] [address] Kyree Neal COMPLEMENT TOTAL (CH50)on Complement, Total (CH50) >60 Normal >41 [facility] Comment on above: Result Comment: Age Male Female 1 - 30 days Not Estab. Not Estab. 31 days - 6 months >32 >20 7 months - 17 years >39 >39 >17 years >41 >41 NOTE: The adult ( >17 years ) reference interval range is used to flag abnormals on this report. If the patient is 17 years old or younger, use the table above to determine out of range values. Performed By: #### C H50T ####[facility] [address] [place], [place] [address]ZjDr. Kyree Neal HAND TWISTER ANTIBODIESon 04-30-2022 HAND TWISTER Antibodies <0.2 Normal 0.0-0.9 [facility] Comment on above: Performed By: #### S EDR #### [facility] [address] [place], [place] [address] Dr. Kyree Neal CBC AUTO DIFFon 04-29-2022 BASO # 0.1 103/ul Normal 0.0-0.1 [facility] Comment on above: Performed By: #### C BC ####[facility] [address] [place], [place] [address]XnDr. Kyree Neal Basophils/100 WBC (Bld) 0.9 % Normal 0.2-2.0 [facility] Comment on above: Performed By: #### C BC ####[facility] [address] [place] [address]Dr. Kyree Neal EO # 0.4 103/ul Normal 0.0-0.7 [facility] Comment on above: Performed By: #### C BC ####[facility] [address] [place] [address]Dr. Kyree Neal Eosinophils/100 WBC (Bld) 5.4 % Normal 0.9-7.0 [facility] Comment on above: Performed By: #### C BC ####[facility] [address] [place], [place] [address]Dr. Kyree Neal Erythrocyte distribution width (RBC) [Ratio] 13.9 % Normal 11.0-15.0 [facility] Comment on above: Performed By: #### C BC ####[facility] [address] [place], [place] [address]Dr. Kyree Neal Hematocrit (Bld) [Volume fraction] 40.9 % Normal 36.0-48.0 [facility] Comment on above: Performed By: #### C BC ####[facility] [address] [place], [place] [address]Dr. Kyree Neal Hemoglobin (Bld) [Mass/Vol] 12.8 g/dL Normal 12.0-16.0 [facility] Comment on above: Performed By: #### C BC ####[facility] [address] [place], [place] [address]Dr. Kyree Neal IG # 0.03 10e3/ul Normal 0.00-0.03 [facility] Comment on above: Performed By: #### C BC ####[facility] [address] [place], [place] [address]Dr. Aaliyahjeff Neal IG % 0.4 % Normal 0.0-0.5 [facility] Comment on above: Performed By: #### C BC ####[facility] [address] [place], [place] [address]DrDulce Neal LYMPH # 1.7 103/ul Normal 1.2-3.8 [facility] Comment on above: Performed By: #### C BC ####[facility] [id number] [place] [id number]. Kyree Neal Lymphocytes/100 WBC (Bld) 21.2 % Normal 20.5-60.0 [facility] Comment on above: Performed By: #### C BC ####[facility] [address] [place] [id number]. Kyree Neal MANUAL DIFF REQ NO Normal [facility] Comment on above: Performed By: #### C BC ####[facility] [id number] [place] [id number]. Kyree Neal MCH (RBC) [Entitic mass] 28.2 pg Normal 26.7-34.0 [facility] Comment on above: Performed By: #### C BC ####[facility] [address] [place] [address]Dr. Kyree Neal MCHC (RBC) [Mass/Vol] 31.3 g/dL Normal 29.9-35.2 [facility] Comment on above: Performed By: #### C BC ####[facility] [address] [place] [id number]. Kyree Neal MCV (RBC) [Entitic vol] 90.1 fL Normal 81.0-99.0 [facility] Comment on above: Performed By: #### C BC ####[facility] [address] [place] [address]Dr. Kyree Neal MONO # 0.6 103/ul Normal 0.3-0.8 [facility] Comment on above: Performed By: #### C BC ####[facility] [address] [place] [id number]. Kyree Neal Monocytes/100 WBC (Bld) 8.2 % Normal 1.7-12.0 [facility] Comment on above: Performed By: #### C BC ####[facility] [address] [place], [place] [id number]. Kyree Neal NEUT # 5.0 103/ul Normal 1.4-6.5 [facility] Comment on above: Performed By: #### C BC ####[facility] [address] [place] [id number]. Kyree Neal Neutrophils/100 WBC (Bld) 63.9 % Normal 43.0-75.0 [facility] Comment on above: Performed By: #### C BC ####[facility] [address] [place] [id number]. Kyree Neal Platelet mean volume (Bld) [Entitic vol] 9.7 fL Normal 9.5-13.5 [facility] Comment on above: Performed By: #### C BC ####[facility] [address] [place] [id number]. Kyree Neal PLT 245 103/ul Normal 150-450 [facility] Comment on above: Performed By: #### C BC ####[facility] [address] [place] [id number]. Kyree Neal RBC 4.54 106/ul Normal 4.20-5.40 [facility] Comment on above: Performed By: #### C BC ####[facility] [address] [place] [id number] Neal WBC 7.8 103/ul Normal 4.0-11.0 [facility] Comment on above: Performed By: #### C BC ####[facility] [address] [place] [id number] Neal CRPon 04-29-2022 CRP 1.1 mg/dL Critically high <=1.0 [facility] Comment on above: Performed By: #### H H #### [facility] [address] [address] [address] Kyree Neal PROF 14(COMP METB)on 022 Albumin [Mass/Vol] 3.5 g/dL Normal 3.4-5.0 [facility] Comment on above: Performed By: #### H H #### [facility] [address] [address] [address] Kyree Neal Albumin/Globulin [Mass ratio] 0.9 {ratio} Normal [facility] Comment on above: Performed By: #### H H #### [facility] [address] [address] [address] Kyree Neal ALP [Catalytic activity/Vol] 64 U/L Normal 46-116 [facility] Comment on above: Performed By: #### H H #### [facility] [address] [address] [address] Kyree Neal ALT [Catalytic activity/Vol] 29 U/L Normal 14-59 [facility] Comment on above: Performed By: #### H H #### [facility] [address] [address] [address] Kyree Neal Anion gap [Moles/Vol] 10.5 mmol/L Normal [facility] Comment on above: Performed By: #### H H #### [facility] [address] [place] [address] Dr. Kyree Neal AST [Catalytic activity/Vol] 20 U/L Normal 15-37 [facility] Comment on above: Performed By: #### H H #### [facility] [address] [place] [address] Dr. Kyree Neal Bilirubin [Mass/Vol] 0.4 mg/dL Normal 0.2-1.0 [facility] Comment on above: Performed By: #### H H #### [facility] [address] [place] [address] Dr. Kyree Neal Calcium [Mass/Vol] 9.4 mg/dL Normal 8.5-10.1 [facility] Comment on above: Performed By: #### H H #### [facility] [address] [place] [address] Dr. Kyree Neal Chloride [Moles/Vol] 106 mmol/L Normal 98-107 [facility] Comment on above: Performed By: #### H H #### [facility] [address] [address] [address] Kyree Neal CO2 [Moles/Vol] 30.4 mmol/L Normal 21.0-32.0 [facility] Comment on above: Performed By: #### H H #### [facility] [address] [address] [address] Kyree Neal Creatinine [Mass/Vol] 1.03 mg/dL Critically high 0.55-1.02 [facility] Comment on above: Performed By: #### H H #### [facility] [address] [address] [address] Kyree Neal EGFR-AF KENYAN >60 Normal >=60 [facility] Comment on above: Performed By: #### H H #### [facility] [address] [address] [address] Kyree Neal EGFR-NON AF KENYAN 54 mL/min/1.73m2 Critically low >=60 [facility] Comment on above: Performed By: #### H H #### [facility] [address] [address] [address] Kyree Neal Globulin (S) [Mass/Vol] 3.8 g/dL Normal [facility] Comment on above: Performed By: #### H H #### [facility] [address] [address] [address] Kyree Neal Glucose [Mass/Vol] 131 mg/dL Critically high 74-106 [facility] Comment on above: Performed By: #### H H #### [facility] [address] [address] [address] Kyree Neal Potassium [Moles/Vol] 3.9 mmol/L Normal 3.5-5.1 [facility] Comment on above: Performed By: #### H H #### [facility] [address] [address] [address] Kyree Neal Protein [Mass/Vol] 7.3 g/dL Normal 6.4-8.2 [facility] Comment on above: Performed By: #### H H #### [facility] [address] [address] [address] Kyree Neal Sodium [Moles/Vol] 143 mmol/L Normal 136-145 [facility] Comment on above: Performed By: #### H H #### [facility] [address] [place] [address] Dr. Kyree Neal Urea nitrogen [Mass/Vol] 24.0 mg/dL Critically high 7.0-18.0 [facility] Comment on above: Performed By: #### H H #### [facility] [address] [place] [address] Dr. Kyree Neal Urea nitrogen/Creatinine [Mass ratio] 23.3 mg/mg Normal [facility] Comment on above: Performed By: #### H H #### [facility] [address] [place] [address] Dr. Kyree Neal SED RATE WESTERGRENon 2021 SED RATE 40 mm/hr Critically high <=30 [facility] Comment on above: Performed By: #### H H #### [facility] [address] [place] [address] Dr. Kyree Neal UA RANDOM W/MICROSCOPICon BACTERIA NONE SEEN Normal NONE SEEN [facility] Comment on above: Performed By: #### U AMIC #### [facility] [address] [place] [address] Dr. Kyree Neal Bilirubin Ql (U) Negative Normal NEGATIVE [facility] Comment on above: Performed By: #### U AMIC #### [facility] [address] [place] [address] Dr. Kyree Neal CAST NONE SEEN Normal NONE SEEN [facility] Comment on above: Performed By: #### U AMIC #### [facility] [address] [place] [address] Dr. Kyree Neal Clarity (U) CLEAR Normal CLEAR [facility] Comment on above: Performed By: #### U AMIC #### [facility] [address] [place] [address] Dr. Kyree Neal Color (U) LT. YELLOW Normal YELLOW [facility] Comment on above: Performed By: #### U AMIC #### [facility] [address] [place] [address] Dr. Kyree Neal Crystals LM Nom (Urine sed) NONE SEEN Normal NONE SEEN [facility] Comment on above: Performed By: #### U AMIC #### [facility] [address] [address] [address] Kyree Neal Epithelial cells LM Ql (Urine sed) MODERATE Abnormal NONE SEEN /RARE [facility] Comment on above: Performed By: #### U AMIC #### [facility] [address] [address] [address] Kyree Neal Glucose Ql (U) Negative Normal NEGATIVE [facility] Comment on above: Performed By: #### U AMIC #### [facility] [address] [address] [address] Kyree Neal Hemoglobin Ql (U) Negative Normal NEGATIVE [facility] Comment on above: Performed By: #### U AMIC #### [facility] [address] [address] [address] Kyree Neal Ketones Ql (U) Negative Normal NEGATIVE [facility] Comment on above: Performed By: #### U AMIC #### [facility] [address] [address] [address] Kyree Neal LEUKOCYTES Negative Normal NEGATIVE [facility] Comment on above: Performed By: #### U AMIC #### [facility] [address] [address] [address] Kyree Neal MUCOUS NONE SEEN Normal NONE SEEN [facility] Comment on above: Performed By: #### U AMIC #### [facility] [address] [address] [address] Kyree Neal Nitrite Ql (U) Negative Normal NEGATIVE [facility] Comment on above: Performed By: #### U AMIC #### [facility] [address] [address] [address] Kyree Neal pH (U) 5.5 [pH] Normal 5-9 [facility] Comment on above: Performed By: #### U AMIC #### [facility] [address] [address] [address] Kyree Neal RBC NONE SEEN Abnormal 0-2 [facility] Comment on above: Performed By: #### U AMIC #### [facility] [address] [address] [address] Kyree Neal SPEC GRAVITY 1.015 Normal 1.005-<=1. 025 [facility] Comment on above: Performed By: #### U AMIC #### [facility] [address] [address] [address] Kyree Neal UA PROTEIN Negative Normal NEGATIVE/ TRACE [facility] Comment on above: Performed By: #### U AMIC #### [facility] [address] [address] [address] Kyree Neal Urobilinogen Qn (U) 0.2 {Herrera'U}/dL Normal 0.2 - 1. 0 [facility] Comment on above: Performed By: #### U AMIC #### [facility] [address] [address] [address] Kyree Neal WBC NONE SEEN Normal NONE SEEN [facility] Comment on above: Performed By: #### U AMIC #### [facility] [address] [address] [address] Kyree Neal CRPon 04-25-2022 CRP 0.9 mg/dL Normal <=1.0 [facility] Comment on above: Performed By: #### C RP ####[facility] [address] [place] [address]. Kyree Neal [facility] SED RATE 39 mm/hr Critically high <=30 [facility] Comment on above: Performed By: #### S EDR #### [facility] [address] [address] [address] Kyree Neal Basic Metabolic PanelOrdered By: Reynaldo Trejo on 04-16-2022 Chloride [Moles/Vol] 100 mmol/L 95-114 [facility] Glucose [Mass/Vol] 129 mg/dL 70-100 [facility] Comment on above: ADA recommended refe rence range Random Glucose Reference Range is dependent on time and content of last meal. Glucose of more than 200 mg/dL in a nonstressed, ambulatory subject supports the diagnosis of Diabetes Mellitus. ADA recommended refe rence rangeRandom Glucose Reference Range is dependent on time and content of last meal. Glucose of more than 200 mg/dL in a nonstressed, ambulatory subject supports the diagnosis of Diabetes Mellitus. Sodium [Moles/Vol] 140 mmol/L 136-146 [facility] Urea nitrogen [Mass/Vol] 27 mg/dL 07-11 [facility] Basic Metabolic Panelon 03-20 Calcium [Mass/Vol] 9.6637558 mg/dL Normal 8.2-10 .2 mg/dL [facility] [employer] Other CO2 [Moles/Vol] 29.70971143 mmol/L Normal 22.0-3 0.0 mmol/L [facility] [employer] Other Creatinine [Mass/Vol] 1.90311607 mg/dL High 0. 44-1.03 mg/dL [facility] [employer] Other Potassium [Moles/Vol] 3.67200031 mmol/L Normal 3 .5-5.1 mmol/L [facility] [employer] Other Basic Metabolic Panel 52 [facility] [employer] Other Creatinine and Glomerular fi ltration rate.predicted panel (S/P/Bld)Ordered By: Reynaldo Trejo on 04-16-2022 Creatinine [Mass/Vol] 1.06 mg/dL 0.44-1.03 [facility] Estimated glomerular filtrat ion rate (GFR) non- AmericanOrdered By: Reynaldo Trejo on 04-16-2022 GFR/1.73 sq M.predicted among non-blacks MDRD (S/P/Bld) [Vol rate/Area] 52 mL/Min [facility] No Panel InformationOrdered By: Reynaldo Trejo on 04-16-2022 Estimated GFR () > 60 mL/Min [facility] Comment on above: GFR estimated refere nce range: According to KDOQI guidelines, <60 ml/min/1.73m2 is sufficient to diagnose a patient with chronic kidney disease. Pharmacy Creatinine Clearance (Chem N/A [facility] Serum or plasma calcium darrell urement (mass/volume)Ordered By: Reynaldo Trejo on 04-16-2022 Calcium [Mass/Vol] 9.7 mg/dL 8.2-10.2 [facility] Serum or plasma potassium me asurement (moles/volume)Ordered By: Reynaldo Trejo on 04-16-2022 Potassium [Moles/Vol] 3.8 mmol/L 3.5-5.1 [facility] Serum or plasma total carbon dioxide measurement (moles/volume)Ordered By: Reynaldo Trejo on 04-16-2022 CO2 [Moles/Vol] 29.6 mmol/L 22.0-30.0 [facility] Albumin [Mass/volume] in Ser um or PlasmaOrdered By: Megan Epps on 04-09-2022 Albumin [Mass/Vol] 3.6 g/dL 3.2-5.5 [facility] Basophils Auto (Bld) [#/Vol] Ordered By: Megan Epps on 04-09-2022 Basophils (Bld) [#/Vol] 0.1 10*3/uL 0.0-0.2 [facility] Basophils/100 WBC Auto (Bld) Ordered By: Megan Epps on 04-09-2022 Basophils/100 WBC (Bld) 0.8 % . [facility] Blood hemoglobin measurement (mass/volume)Ordered By: Megan Epps on 04-09-2022 Hemoglobin (Bld) [Mass/Vol] 12.8 g/dL 11.8-15.4 [facility] Blood leukocytes automated c ount (number/volume)Ordered By: Megan Epps on 04-09-2022 WBC (Bld) [#/Vol] 9.5 10*3/uL 4.5-11.0 [facility] CT biopsyOrdered By: Megan Valdivia on 04-09-2022 Transferrin [Mass/Vol] 242 mg/dL 180-380 [facility] Creatinine and Glomerular fi ltration rate.predicted panel (S/P/Bld)Ordered By: Megan Epps on 04-09-2022 Creatinine [Mass/Vol] 1.06 mg/dL 0.44-1.03 [facility] Eosinophils Auto (Bld) [#/Vo l]Ordered By: Megan Epps on 04-09-2022 Eosinophils (Bld) [#/Vol] 0.5 10*3/uL 0.0-0.45 [facility] Eosinophils/100 WBC Auto (Bl d)Ordered By: Megan Epps on 04-09-2022 Eosinophils/100 WBC (Bld) 5.5 % . [facility] Erythrocyte distribution wid th Auto (RBC) [Ratio]Ordered By: Megan Epps on 04-09-2022 Erythrocyte distribution width (RBC) [Ratio] 14.6 % 11.9-15.3 [facility] Estimated glomerular filtrat ion rate (GFR) non- AmericanOrdered By: Megan Epps on 04-09-2022 GFR/1.73 sq M.predicted among non-blacks MDRD (S/P/Bld) [Vol rate/Area] 52 mL/Min [facility] Ferritin [Mass/volume] in Se rum or PlasmaOrdered By: Megan Epps on 04-09-2022 Ferritin [Mass/Vol] 383.1 ng/mL 11-306.8 [facility] Folate [Mass/volume] in Seru m or PlasmaOrdered By: Megan Epps on 04-09-2022 Folate [Mass/Vol] ng/mL >5.9 [facility] Comment on above: Folate reference ran ge: >5.9 ng/ml The WHO technical consultation on folate and vitamin b12 deficiencies has determined that folate concentrations less than 4 ng/ml are considered deficient. Globulin Calc (S) [Mass/Vol] Ordered By: Megan Epps on 04-09-2022 Globulin (S) [Mass/Vol] 2.6 g/dL [facility] Hematocrit Auto (Bld) [Volum e fraction]Ordered By: Megan Epps on 04-09-2022 Hematocrit (Bld) [Volume fraction] 38.4 % 34.0-46.4 [facility] Iron [Mass/volume] in Serum or PlasmaOrdered By: Megan Epps on 04-09-2022 Iron [Mass/Vol] 41 ug/dL 40-150 [facility] Iron binding capacity [Mass/ volume] in Serum or PlasmaOrdered By: Megan Epps on 04-09-2022 Iron binding capacity [Mass/Vol] 339 ug/dL 255-450 [facility] Iron saturation [Mass Fracti on] in Serum or PlasmaOrdered By: Megan Epps on 04-09-2022 Iron saturation [Mass fraction] 12.0 % 20-50 [facility] - Chemistry and C hemistry - challengeOrdered By: Megan Epps on 04-09-2022 Cobalamin (Vitamin B12) [Mass/Vol] 459 pg/mL 180-914 [facility] - Hematology and Cell countsOrdered By: Megan Epps on 04-09-2022 Nucleated RBC/100 WBC (Bld) [Ratio] 0.0 % 0-0.5 [facility] Lymphocytes Auto (Bld) [#/Vo l]Ordered By: Megan Epps on 04-09-2022 Lymphocytes (Bld) [#/Vol] 2.1 10*3/uL 1.00-4.8 [facility] Lymphocytes/100 WBC Auto (Bl d)Ordered By: Megan Epps on 04-09-2022 Lymphocytes/100 WBC (Bld) 21.7 % . [facility] MCH Auto (RBC) [Entitic mass ]Ordered By: Megan Epps on 04-09-2022 MCH (RBC) [Entitic mass] 29.1 pg 24.7-34.3 [facility] MCHC Auto (RBC) [Mass/Vol]Or dered By: Megan Epps on 04-09-2022 MCHC (RBC) [Mass/Vol] 33.3 g/dL 32.0-35.0 [facility] MCV Auto (RBC) [Entitic vol] Ordered By: Megan Epps on 04-09-2022 MCV (RBC) [Entitic vol] 87.3 fL 80-100 F [facility] Monocytes Auto (Bld) [#/Vol] Ordered By: Megan Epps on 04-09-2022 Monocytes (Bld) [#/Vol] 0.7 10*3/uL 0.0-0.8 [facility] Monocytes/100 WBC Auto (Bld) Ordered By: Megan Epps on 04-09-2022 Monocytes/100 WBC (Bld) 7.2 % . F [facility] Neutrophils Auto (Bld) [#/Vo l]Ordered By: Megan Epps on 04-09-2022 Neutrophils (Bld) [#/Vol] 6.2 10*3/uL 1.8-7.7 [facility] Neutrophils/100 WBC Auto (Bl d)Ordered By: Megan Epps on 04-09-2022 Neutrophils/100 WBC (Bld) 64.8 % . [facility] No Panel InformationOrdered By: Megan Epps on 04-09-2022 Estimated GFR () > 60 mL/Min [facility] Comment on above: GFR estimated refere nce range: According to KDOQI guidelines, <60 ml/min/1.73m2 is sufficient to diagnose a patient with chronic kidney disease. Pharmacy Creatinine Clearance (Chem 65.00 [facility] Platelet mean volume Auto (B ld) [Entitic vol]Ordered By: Megan Epps on 04-09-2022 Platelet mean volume (Bld) [Entitic vol] 8.4 fL 6.3-10.7 [facility] Platelets Auto (Bld) [#/Vol] Ordered By: Megan Epps on 04-09-2022 Platelets (Bld) [#/Vol] 249 10*3/uL 150-450 [facility] Protein [Mass/volume] in Ser um or PlasmaOrdered By: Megan Epps on 04-09-2022 Protein [Mass/Vol] 6.2 g/dL 6.1-7.9 [facility] RBC Auto (Bld) [#/Vol]Ordere d By: Megan Epps on 04-09-2022 RBC (Bld) [#/Vol] 4.40 10*6/uL 3.60-5.00 [facility] Serum or plasma alanine victoria otransferase measurement without P-5'-P (enzymatic activiOrdered By: Megan Epps on 04-09-2022 ALT No additional P-5'-P [Catalytic activity/Vol] 21 U/L 10-60 [facility] Serum or plasma albumin/glob ulin mass ratioOrdered By: Megan Epps on 04-09-2022 Albumin/Globulin [Mass ratio] 1.4 {ratio} [facility] Serum or plasma alkaline adams sphatase measurement (enzymatic activity/volume)Ordered By: Megan Epps on 04-09-2022 ALP [Catalytic activity/Vol] 62 U/L 32-92 [facility] Serum or plasma aspartate am inotransferase measurement (enzymatic activity/volume)Ordered By: Megan Epps on 04-09-2022 AST [Catalytic activity/Vol] 21 U/L 10-42 [facility] Serum or plasma calcium darrell urement (mass/volume)Ordered By: Megan Epps on 04-09-2022 Calcium [Mass/Vol] 9.2 mg/dL 8.2-10.2 [facility] Serum or plasma chloride jose surement (moles/volume)Ordered By: Megan Epps on 04-09-2022 Chloride [Moles/Vol] 101 mmol/L 95-114 [facility] Serum or plasma glucose darrell urement (mass/volume)Ordered By: Megan Epps on 04-09-2022 Glucose [Mass/Vol] 111 mg/dL 70-100 [facility] Comment on above: ADA recommended refe rence range Random Glucose Reference Range is dependent on time and content of last meal. Glucose of more than 200 mg/dL in a nonstressed, ambulatory subject supports the diagnosis of Diabetes Mellitus. Serum or plasma methylmalona te measurement (moles/volume)Ordered By: Megan Epps on 04-09-2022 Methylmalonate [Moles/Vol] 291 nmol/L 0-378 [facility] Comment on above: This test was devamadoro ped and its performance characteristics determined by [facility]. It has not been cleared or approved by the Food and Drug Administration. Performed at: [facility] [address] [id number] [place] To[place]: Alan Christianson MD, Phone: [phone] Serum or plasma potassium me asurement (moles/volume)Ordered By: Megan Epps on 04-09-2022 Potassium [Moles/Vol] 3.6 mmol/L 3.5-5.1 [facility] Serum or plasma sodium measu rement (moles/volume)Ordered By: Megan Epps on 04-09-2022 Sodium [Moles/Vol] 140 mmol/L 136-146 [facility] Serum or plasma total biliru bin measurement (mass/volume)Ordered By: Megan Supriya on 04-09-2022 Bilirubin [Mass/Vol] 0.6 mg/dL 0.3-1.2 [facility] Serum or plasma total carbon dioxide measurement (moles/volume)Ordered By: Megan Supriya on 04-09-2022 CO2 [Moles/Vol] 26.6 mmol/L 22.0-30.0 [facility] Serum or plasma urea nitroge n measurement (mass/volume)Ordered By: Megan Supriya on 04-09-2022 Urea nitrogen [Mass/Vol] 23 mg/dL 9- [facility] PTH INTACTon 04-02-2022 PTH, Intact 42 pg/mL Normal 15-65 [facility] Comment on above: Performed By: #### P THINT ####[facility] [address] [place] [address]Dr. Kyree Neal HEMOGRAM AND PLATELon 2021 Hematocrit (Bld) [Volume fraction] 39.1 % Normal 36.0-48.0 [facility] Comment on above: Performed By: #### H H #### [facility] [address] [address] [address] Kyree Neal Hemoglobin (Bld) [Mass/Vol] 12.4 g/dL Normal 12.0-16.0 [facility] Comment on above: Performed By: #### H H #### [facility] [address] [address] [address] Kyree Neal MCH (RBC) [Entitic mass] 28.7 pg Normal 26.7-34.0 [facility] Comment on above: Performed By: #### H H #### [facility] [address] [address] [address] Kyree Neal MCHC (RBC) [Mass/Vol] 31.7 g/dL Normal 29.9-35.2 [facility] Comment on above: Performed By: #### H H #### [facility] [address] [place] [address] Dr. Kyree Neal MCV (RBC) [Entitic vol] 90.5 fL Normal 81.0-99.0 [facility] Comment on above: Performed By: #### H H #### [facility] [address] [place] [address] Dr. Kyree Neal PLT 242 103/ul Normal 150-450 [facility] Comment on above: Performed By: #### H H #### [facility] [address] [place] [address] Dr. Kyree Neal RBC 4.32 106/ul Normal 4.20-5.40 [facility] Comment on above: Performed By: #### H H #### [facility] [address] [place] [address] Dr. Kyree Neal WBC 8.6 103/ul Normal 4.0-11.0 [facility] Comment on above: Performed By: #### H H #### [facility] [address] [place] [address] Dr. Kyree Neal PHOSPHORUSon 04-01-2022 Phosphate [Mass/Vol] 2.7 mg/dL Normal 2.6-4.7 [facility] Comment on above: Performed By: #### P HOS, BMP #### [facility] [address] [place] [address] Dr. Kyree Neal PROF CHEM 8 (BAS METB)on Anion gap [Moles/Vol] 11.0 mmol/L Normal [facility] Comment on above: Performed By: #### P HOS, BMP #### [facility] Laboratory [address] [place] [address] Dr. Kyree Neal Calcium [Mass/Vol] 9.0 mg/dL Normal 8.5-10.1 [facility] Comment on above: Performed By: #### P HOS, BMP #### [facility] [address] [place] [address] Dr. Kyree Neal Chloride [Moles/Vol] 104 mmol/L Normal 98-107 [facility] Comment on above: Performed By: #### P HOS, BMP #### [facility] [address] [address] [address] Kyree Neal CO2 [Moles/Vol] 30.6 mmol/L Normal 21.0-32.0 [facility] Comment on above: Performed By: #### P HOS, BMP #### [facility] [address] [address] [address] Kyree Neal Creatinine [Mass/Vol] 1.10 mg/dL Critically high 0.55-1.02 [facility] Comment on above: Performed By: #### P HOS, BMP #### [facility] [address] [address] [address] Kyree Neal EGFR-AF KENYAN =60 Normal >=60 [facility] Comment on above: Performed By: #### P HOS, BMP #### [facility] [address] [address] [address] Kyree Neal EGFR-NON AF KENYAN 50 mL/min/1.73m2 Critically low >=60 [facility] Comment on above: Performed By: #### P HOS, BMP #### [facility] [address] [address] [address] Kyree Neal Glucose [Mass/Vol] 93 mg/dL Normal 74-[address] [facility] Comment on above: Performed By: #### P HOS, BMP #### [facility] [address] [address] [address] Kyree Neal Potassium [Moles/Vol] 3.6 mmol/L Normal 3.5-5.1 [facility] Comment on above: Performed By: #### P HOS, BMP #### [facility] [address] [address] [address] Kyree Neal Sodium [Moles/Vol] 142 mmol/L Normal 136-[address] [facility] Comment on above: Performed By: #### P HOS, BMP #### [facility] [address] [address] [address] Kyree Neal Urea nitrogen [Mass/Vol] 20.0 mg/dL Critically high 7.0-18.0 [facility] Comment on above: Performed By: #### P HOS, BMP #### [facility] [address] [place], [place] [address] Dr. Kyree Neal Urea nitrogen/Creatinine [Mass ratio] 18.2 mg/mg Normal [facility] Comment on above: Performed By: #### P HOS, BMP #### [facility] [address] [place], [place] [address] Dr. yKree Neal VITAMIN D 25 OHon 04-01-2022 VIT D 25-OH 45.4 ng/mL Normal [facility] Comment on above: Performed By: #### S EDR #### [facility] [address] [place], [place] [address] Dr. Kyree Neal VIT D RANGES SEE BELOW [facility] Comment on above: Result Comment: <20 ng/mL Vit D deficient 20 - <30 ng/mL Vit D insufficient 30 - 100 ng/mL Vit D sufficient >100 ng/mL Potential Toxicity Performed By: #### S EDR #### [facility] [address] [address] [address] Kyree Neal A1C HEMOGLOBINon 02-05-2022 HbA1c (Bld) [Mass fraction] 6.1 % [employer] Other HbA1c (Bld) [Mass fraction]o n 02-05-[address] [facility] [employer] Other Office Visit (Cardiology)on 12-18-2021 Follow-up visit Diagnoses/Problems Assessed Chronic right-sided congestive heart failure (428.0) (I50.812) Edema (782.3) (R60.9) Morbid obesity with BMI of 45.0-49.9, adult (278.01,V85.42) (E66.01,Z68.42) SOB (shortness of breath) (786.05) (R06.02) Sleep apnea, unspecified type (780.57) (G47.30) CKD (chronic kidney disease), stage III (585.3) (N18.30) Diet-controlled diabetes mellitus (250.00) (E11.9) Former smoker (V15.82) (Z87.891) high school smoker Orders Morbid obesity with BMI of 45.0-49.9, adult Healthy Weight Tips; Status:Complete - Retrospective Authorization; Done: 18Dec2021 SocHx: Former smoker Tobacco Use Screening; Status:Complete; Done: 18Dec2021 Tobacco Use Screening; Status:Complete; Done: 18Dec2021 Patient Instructions Please bring all medicines, vitamins, and herbal supplements with you when you come to the office. Prescriptions will not be filled unless you are compliant with your follow up appointments or have a follow up appointment scheduled as per instruction of your physician. Refills should be requested at the time of your visit. Follow up in 9 months Chief Complaint VANESSA GRAHAM is being seen for a 3 month follow-up of. History of Present Illness Patient is here for follow-up continue management for previous evaluation of right-sided heart failure, hypertension, chronic kidney disease, morbid obesity and sleep apnea. Since last time I saw her she reports stable cardiac status. Her edema appears to be controlled. She denies complaint of chest pain, palpitation, lightheadedness, dizziness or syncope. Assessment 1. volume overload and right-sided heart failure. She seem to be retaining fluid since her diuretics was discontinued.. . Her last echo showed normal LV systolic function without significant pulmonary hypertension 2. History of hypertension controlled occasional orthostatic hypotension she is currently on midodrine 3. chronic kidney disease by the renal service 4. Morbid obesity 5. Diet-controlled diabetes mellitus 6. Classic symptoms of sleep apnea with positive sleep study in the past but patient report poor tolerance to CPAP line 7. Patient report previous cardiac catheterization showed no coronary artery disease 8. Orthostatic hypotension improved with midodrine Plan 1. I advised the patient to continue present medical therapy 2. I advised the patient to strict her fluid and salt intake 3. I reviewed her previous cardiac work-up and recent echo with her 4. I advised the patient that she should need to consider alternative treatment for her sleep apnea including possible surgery and or implantable device 5. Patient was asked me whether there is benefit for treatment with Farxiga or Jardiance I indicated to her that considering she had normal LV systolic function there is no clear cardiac benefit on the short term. However there may be some cardiac protection on the long run and renal protection and dose medication can be initiated by her PCP if needed. 6. Follow-up in 9 months or earlier if the need arise and I advised the patient to send me a copy of her lab work when it is done Surgical History Problems History of Appendectomy History of section History of Complete colonoscopy Managed By: Richard Horn MD History of Foot surgery tendonitis History of Gastric bypass surgery History of Knee replacement total bilateral History of Tonsillectomy with adenoidectomy Current Meds Medication NameInstruction Albuterol Sulfate 1.25 MG/3ML Inhalation Nebulization SolutionUSE 1 UNIT DOSE IN NEBULIZER EVERY 4 TO 6 HOURS NEEDED. Alendronate Sodium 70 MG Oral TabletTAKE 1 TABLET ONCE WEEKLY. Allopurinol 100 MG Oral TabletTAKE 2 TABLETS DAILY. Bumetanide 0.5 MG Oral TabletTake 1 tablet twice daily Claritin 10 MG Oral TabletTAKE 1 TABLET DAILY NEEDED. Clopidogrel Bisulfate 75 MG Oral TabletTAKE ONE TABLET BY MOUTH DAILY Ferrous Sulfate 324 (65 Fe) MG Oral Tablet Delayed ReleaseTake 1 tablet daily Fluconazole 100 MG Oral TabletTAKE 1 TABLET DAILY DIRECTED. PRN Fluticasone Propionate 50 MCG/ACT Nasal SuspensionUSE 1 SPRAY IN EACH NOSTRIL ONCE DAILY. PRN Gabapentin 300 MG Oral CapsuleTAKE 1 CAPSULE 3 TIMES DAILY. hydrOXYzine HCl - 10 MG Oral TabletTAKE 1 TO 2 TABLETS BY MOUTH THREE TIMES A DAY NEEDED FOR ITCHING FOR 30 DAYS Midodrine HCl - 2.5 MG Oral TabletTake 1 tablet twice daily Ondansetron HCl - 4 MG Oral TabletTAKE ONE TABLET BY MOUTH THREE TIMES A DAY NEEDED FOR NAUSEA AND VOMITING Pantoprazole Sodium 40 MG Oral Tablet Delayed ReleaseTAKE 1 TABLET TWICE DAILY 30 MINUTES BEFORE BREAKFAST AND DINNER. Symbicort 160-4.5 MCG/ACT Inhalation AerosolUSE DIRECTED. Temazepam 30 MG Oral CapsuleTAKE ONE CAPSULE BY MOUTH AT BEDTIME NEEDED tiZANidine HCl - 4 MG Oral Tablettake one tabelt in the morning and one in the evening Vitamin D 1000 UNIT CAPSTAKE 1 CAPSULE Daily Allergies Medication Latex Exam Gloves MISC Allergy; Hives; It (more content not included)... Normal [facility] A1C HEMOGLOBINon 11-05-2021 HbA1c (Bld) [Mass fraction] 5.9 % [employer] Other HbA1c (Bld) [Mass fraction]o n 11-05-2021 A1C HEMOGLOBIN [employer] Other Office Visit (Cardiology)on 10-01-2021 Follow-up visit Diagnoses/Problems Assessed Hypotension (458.9) (I95.9) quiescent on midodrine Edema (782.3) (R60.9) For the most part seems chronic No offending medications Intolerant to compression stockings Diet-controlled diabetes mellitus (250.00) (E11.9) CKD (chronic kidney disease), stage III (585.3) (N18.30) Follows routinely [facility] Nephrology - manage diuretic Morbid obesity with BMI of 45.0-49.9, adult (278.01,V85.42) (E66.01,Z68.42) Reviewed the merits of healthy lifestyle choices on overall cardiovascular health. Normal echocardiogram (V72.85) 2019 Echo LVEF 60-65% Normal RV function Trace MR RVSP normal Normal coronary angiogram Reports 2016 at outside hospital will request records Patient Instructions PLAN: Through informed decision making process incorporating patients unique circumstances, the following treatment plan will be initiated: 1. Prescription drug management of cardiovascular medication for efficacy, adherence to treatment, side effect assessment and polypharmacy. Current treatment clinically warranted and to continue without modifications. 2. Return for follow-up; in the interim, contact the office if new symptoms arise. Dr. Castanon as prior Encourage healthy lifestyle choices including: - Heart Health Diet: eat plenty of nutrient-rich foods (fruits and veggies, whole grains, lean poultry and fish). Avoid saturated fats, trans fats and excess sodium and sugar. - Get at least 150 minutes per week of moderate-intensity aerobic activity. Brisk walking (at least 2.5 miles per hour), water aerobics, gardening, biking slower than 10 miles per hours. Any amount of movement is better than none. The simplest way to get moving and improve your health is to start walking. It's free, easy and can be done just about anywhere, even in place. Even if you have been sedentary for years, today is the day you can begin to make healthy changes in your life. Please bring all medicines, vitamins, and herbal supplements with you when you come to the office. Prescriptions will not be filled unless you are compliant with your follow up appointments or have a follow up appointment scheduled as per instruction of your physician. Refills should be requested at the time of your visit. Chief Complaint 'follow-up from emergency department visit' VANESSA GRAHAM is being seen for leg cramping. Last evaluated by Dr. Castanon May 2021 and doing well at that time. Seen in ED due to leg cramping and told 'was dehydrated'; medications were changed. Off diuretic, increased lower extremity edema - Nephrology started bumex and managing with repeat labs. On bumex no leg cramps, remains with some edema. Allergic to compression stockings, attempts to keep elevated, no increased free fluid intake. No offending medications. Prior + JEREMY testing and can't tolerate mask. Seeing 'diet doctor' to lose weight Orthostatic hypotension on midodrine - remains quiescent. 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 History of Present Illness The patient states she has been generally doing well since the last visit. Symptoms: denies chest pain at rest, denies exertional chest pain, denies dyspnea, denies fatigue, stable exercise intolerance, denies palpitations, improved edema, denies orthopnea, denies dizziness and denies orthostatic dizziness. Disease Monitoring: Current Meds Medication NameInstruction Albuterol Sulfate 1.25 MG/3ML Inhalation Nebulization SolutionUSE 1 UNIT DOSE IN NEBULIZER EVERY 4 TO 6 HOURS NEEDED. Alendronate Sodium 70 MG Oral TabletTAKE 1 TABLET ONCE WEEKLY. Allopurinol 100 MG Oral TabletTAKE 2 TABLETS DAILY. Bumetanide 0.5 MG Oral TabletTake 1 tablet twice daily Claritin 10 MG Oral TabletTAKE 1 TABLET DAILY NEEDED. Clopidogrel Bisulfate 75 MG Oral TabletTAKE ONE TABLET BY MOUTH DAILY Ferrous Sulfate 324 (65 Fe) MG Oral Tablet Delayed Releaseas directed Fluconazole 100 MG Oral TabletTAKE 1 TABLET DAILY DIRECTED. PRN Fluticasone Propionate 50 MCG/ACT Nasal SuspensionUSE 1 SPRAY IN EACH NOSTRIL ONCE DAILY. PRN Gabapentin 300 MG Oral CapsuleTAKE 1 CAPSULE 3 TIMES DAILY. hydrOXYzine HCl - 10 MG Oral TabletTAKE 1 TO 2 TABLETS BY MOUTH THREE TIMES A DAY NEEDED FOR ITCHING FOR 30 DAYS Midodrine HCl - 2.5 MG Oral TabletTake 1 tablet twice daily Ondansetron HCl - 4 MG Oral TabletTAKE ONE TABLET BY MOUTH THREE TIMES A DAY NEEDED FOR NAUSEA AND VOMITING Pantoprazole Sodium 40 MG Oral Tablet Delayed ReleaseTAKE 1 TABLET TWICE DAILY 30 MINUTES BEFORE BREAKFAST AND DINNER. Percocet 5-325 MG Oral TabletTAKE 1 TABLET 1/2 HOUR PRIOR TO PROCEDURE; THEN 1 TABLET EVERY 4 TO 6 HOURS NEEDED TO PAIN. Symbicort 160-4.5 MCG/ACT Inhalation AerosolUSE DIRECTED. Temazepam 30 MG Oral CapsuleTAKE ONE CAPSULE BY MOUTH AT BEDTIME NEEDED tiZANidine HCl - (more content not included)... Normal [facility] A1C HEMOGLOBINon 07-25-2021 HbA1c (Bld) [Mass fraction] 6.0 % [employer] Other HbA1c (Bld) [Mass fraction]o n 07-25-2021 A1C HEMOGLOBIN [facility] Other A1C HEMOGLOBINon 07-11-2021 HbA1c (Bld) [Mass fraction] 6.0 % [employer] Other HbA1c (Bld) [Mass fraction]o n 07-11-2021 A1C HEMOGLOBIN [facility] Other MRI L-Ext Joint w/o Contrast RTon 08-03-2018 MR Lower extremity joint - right WO contrast EXAMINATION TYPE: MRI L-Ext Joint w/o Contrast RT DATE OF EXAM ORDERED: 08/03/2018 2:00 PMHISTORY: Z96.651. Worsening knee pain since surgery. Total right knee arthroplasty one year ago.COMPARISON: Right knee radiographs 12/21/2017FINDINGS: Extensive blooming artifact around the total right knee arthroplasty. No periprosthetic fracture. No abnormal marrow signal or medullary expansion around the femoral or tibial components. Patellofemoral alignment is normal. Quadriceps and patellar tendons are intact.Knee joint effusion. No drainable periarticular collections or soft tissue masses about the knee. Atrophy of the muscles about the distal thigh and proximal calf. Flow-void in the popliteal artery is unremarkable. No Shrestha's cyst. Edema in the prepatellar fat.Subcutaneous varices are noted.IMPRESSION: Small knee joint effusion. No acute fractures. Patellofemoral alignment is normal. Quadriceps and patellar tendons are intact.Limited examination due to the right knee arthroplasty.Tonio Valencia thanks you for the opportunity to care for your patient. Workstation ID: [id number] FINAL REPORT Dictated By: Lance Elise MD 08/03/2018 14:10Assigned Physician: Lance Elise MD and Electronically Signed By: Lance Elise MD 08/03/2018 14:12Transcribed by: BARRON 08/03/2018 14:10Technologist: LONNIE Perez [facility] [place] 05-27-2018 CNOV Office Visit (CARDFT) MILLIE GRAHAM ([id number]) 1955 FDate Time Provider Department05/27/18 12:30 PM ITALO ANN During your visit today, we recorded the following information about you: Pulse Respiration Blood pressure Weight 64/minute 16/minute 143/68 120.2 kg Height 1.6 Cece Ann MD 05/27/2018 1:19 PM [facility] Department of Cardiovascular MedicineOUTPATIENT VISIT DATE 05/27/18OUTPATIENT VISIT TYPEESTABLISHEDPRIMARY CARE PHYSICIAN:Conrad Sosa DO[address] [facility] [address]Cyduj: [phone]: [phone] COMPLAINT:Patient presents with:Follow UpHISTORY OF PRESENT ILLNESS:Castillo Graham is a 61 year old female with a complex past medical history ofchronic diastolic heart failure, mild nonobstructive coronary artery disease,possible secundum type atrial septal defect, essential hypertension, pulmonaryhypertension, obstructive sleep apnea intolerant of face mask, gastroesophagealreflux disease, fibromyalgia and either reactive or restrictive lung disease.06/30/2017The patient presents today as a new consult for weight gain and swelling. Shehad previously been evaluated and under the care of Dr. Schilling of [facility]. Femis had multiple procedures performed which are detailed below. The patientrelates being on Lasix in the past for her lower extremity edema. Apparentlythe doses were gradually increased due to lack of response. Eventually thepatient developed significant renal insufficiency and the Lasix had to bedecreased or stopped. The patient states that she had terrible cramping withthe doses of Lasix. She states she was unable to continue taking it. She isnow not currently on any diuretic therapy. She believes the swelling hasworsened in her lower extremities all the way up her legs and into her abdomen. She has gained approximately 11 pounds since February of this year. She does statethat she was taking mpbq-pcl-pbefdmk diet pills until recently. They were notworking. The patient has chronic complaints of dyspnea and dyspnea onexertion. She has been treated with lisinopril for her blood pressure. TheLasix was used to try to decrease her edema but was not successful. Thepatient and her son seem frustrated with the care they were given by theprevious cardiology team. By my review of the testing it seems the previouscardiologist was going by the guidelines with continued reasonable testing inan effort to try to help the patient's situation. She and her son seems veryupset with the lack of progress.07/21/2017The patient presents today for a 2-3 week visit. I have reviewed her previoustesting and it is documented below. The results from a sleep study in May2017 shows mild obstructive sleep apnea. It was recommended that she betitrated on CPAP. The patient states that her home equipment is to bedelivered. She continues to have swelling. She continues to have dyspnea onexertion. It has not worsened since her previous visit. We have reviewed hermedications again today. She has been on Celebrex for quite some time and thiscould certainly cause fluid overload. It is not clear what the exact etiologyof her continued symptoms are. It is most likely that his multi-factorial.The patient is also facing a right knee replacement in the near future. Shedoes not have significant coronary artery disease.01/04/2018The patient presents today for a roughly 6 month follow-up. The patient feelsabout the same as she did before. She stopped her Celebrex and had may be aslight improvement in her swelling. Unfortunately she still has some swellingin her knees and thighs bilaterally. She has been unable to tolerate diureticsin the past. She has had multiple invasive evaluations. Her son states thatarleth truly is not active at home at all. She may sit in her chair for pvwikpy52-90 hours every day. She states that it's because of her knee pain that sheis unable to get up and move around. We have suggested that she needs to getup and move some. She also needs to make changes in her diet. The patientdoes complain of a sensation of her heartbeat in her back that radiates aroundto her chest at times. This does not cause any syncopal or near syncopalepisodes. It is a vague sensation.04/08/2018The patient presents today for 3 month follow-up visit. The patient has madesome dietary changes. She has lost 2 pounds since her last visit. She istrying to change her lifestyle. She still has some swelling in her lowerextremities. This was not responsive to diuretics in the past. The patientdenies any chest pain or unusual shortness of breath. The patient informs meat the end of our interview that she is actually taking her lisinopril 20 mgtwice a day and not once a day as listed in our medications. She does useibuprofen occasionally. Her blood pressure remains moderately elevated today.She believes this is because of constant right knee pain.05/27/2018The patient presents today for a roughly 1 month follow-up visit. She has notbeen able to lose weight. She actually has gained 7 pounds since her lastvisit. She denies any new cardiac symptoms since her last visit. She iscontinuing to have problems with her right knee replacement. She may have tohave a second surgery. She still has lower extremity edema now occurringmostly on the left with intimal on the right. This has actually been a chronicproblem.PAST MEDICAL HISTORYDiagnosis Date- Anxiety- ASD (atrial septal defect)- Asthma- CAD (coronary artery disease)- CHF (congestive heart failure) ([facility])- DM (diabetes mellitus) ([facility])- Fibromyalgia- GERD (gastroesophageal reflux disease)- HTN (hypertension)- OA (osteoarthritis) of knee- JEREMY (obstructive sleep apnea)- Pulmonary HTN (HCC)- Restrictive lung disease- Vitamin D deficiencyPAST SURGICAL HISTORYProcedure Laterality Date- APPENDECTOMY HX- CARDIAC CATH 02/2013 Mild CAD / Pulm HTN- CARDIAC CATH 03/05/2017 Normal- COLONOSCOPY 02/2013- ECHO 05/2009 EF 30% LVH- EGD 02/2013- FOOT SURGERY HX- GASTRIC BYPASS HX- PAST SURGICAL HISTORY OF - TONSILLECTOMY HXSocial HistorySubstance Use Topics- Smoking status: Passive Smoke Exposure - Never Smoker Types: Cigarettes- Smokeless tobacco: Never Used- Alcohol use NoFAMILY HISTORYProblem Relation Age of Onset- Adopted: Yes- Family history unknown: YesALLERGIES:ALLERGIESAl lergen Reactions- Latex Rash- Penicillin Rash- Sulfa (Sulfonamide * RashMEDICATIONS:pantopra zole (PROTONIX) 40 mg grps Take 40 mg by mouth twice daily before meals(0600/1600).cetiriz ine (ZYRTEC) 10 mg tablet Take 10 mg by mouth once daily.oxyCODONE-acetamin ophen (PERCOCET) 5-325 mg tablet Take 1 tablet by mouth asneeded.fluticasone (FLONASE) 50 mcg/actuation nasal spray Use 2 Sprays in each nostriltwice daily at 6AM and 9PM.albuterol HFA (PROVENTIL HFA, VENTOLIN HFA) 90 mcg/actuation inhaler Inhale 2Puffs as instructed as needed for Wheezing/Shortness of Breath.budesonide-formot kathrin (SYMBICORT) 160-4.5 mcg/actuation inhaler Inhale 2 Puffsas instructed twice daily.lisinopril (ZESTRIL, PRINIVIL) 40 mg tablet Take 1 tablet by mouth once daily.hydrOXYzine HCl (ATARAX) 10 mg tablet Take by mouth three times daily asneeded.temazepam (RESTORIL) 15 mg cap Take by mouth at bedtime as needed.CALCIUM POLYCARBOPHIL (FIBERCON ORAL) Take by mouth.tiZANidine HCl 4 mg capsule Take by mouth daily at bedtime.pantoprazole (PROTONIX) 40 mg injection Inject intravenously DAILY (6 AM).celecoxib (CELEBREX) 200 mg capsule Take by mouth twice daily.rOPINIRole (REQUIP) 0.5 mg tablet Take 0.5 mg by mouth daily at bedtime.REVIEW OF SYSTEMS:A complete review of systems was obtained and is remarkable for that notedabove. The remaining systems are unremarkable.I personally interviewed, confirmed and edited the above information ifobtained by others.PHYSICAL EXAMINATION:BP 143/68 (BP Site: Left Arm, BP Position: Sitting, BP Cuff Size: RegularAdult) Pulse 64 Resp 16 Ht 160 cm (5' 3 ) Wt 120.2 kg (265 lb) SpO2 98% BMI 46.94 kg/m?General: Well appearing, in no acute distress.Eyes: Conjunctiva normal, sclera normalNeck: No jugular venous distention, no palpable thyromegaly.Heart: Regular rhythm, S1, S2 normal, no S3, no S4. No murmur. No carotidbruits.Respirator y: Mildly decreased breath sounds bilaterally. Good respiratoryeffort.GI: Soft, nontender, bowel sounds normal, no palpable hepatosplenomegalyExtrem ities: Normal pulses in distal lower extremities. Moderate left lowerextremity edema with trivial to mild right lower extremity edema. There isskin discoloration in the right lower extremityNeuro: Alert, cooperative with no focal deficit.Psych: Pleasant and cooperative.Skin: No rashes or wounds.CARDIOVASCULAR MEDICINE TESTING:Echocardiograms: 11/28/2014 - a 2-D echocardiogram performed at the [facility] normal left ventricular systolic function with an ejection fraction of60%. There was no significant valvular disease identified. There was nocomment on diastolic function.02/24/2017 - a 2-D echocardiogram performed at the [facility] low normal to mildly reduced left ventricular systolic function withan ejection fraction of 45-50%. There was minimal concentric left ventricularhypertrophy present. There was evidence of grade 1 diastolic dysfunction.There was mild mitral regurgitation. No estimate a right ventricular systolicpressure was possible on this study.Stress Evaluations:02/26/2016 - a Lexiscan nuclear stress evaluation at the [facility] a left ventricular ejection fraction of 50% with abnormal septal wallmotion. There was a small defect involving the inferior oh apical wall whichwas fixed. This was felt to likely represent artifact. There was no otherevidence of Lexiscan stress-induced ischemia.02/24/2017 - [facility] Lexiscan [facility] mildly diminished left ventricular systolic function with an ejectionfraction of 48%. There was a moderate sized anterior septal defect which waspartially reversible noted. This was read as suggestive of possiblestress-induced ischemia.Cardiac Catheterizations: 004 - [facility]. There was moderately decreased leftventricular systolic function noted with an ejection fraction of 30%.Moderately elevated right heart pressures and a normal cardiac index werenoted. The patient was continued on Demadex, Diovan, around oh lactone, Coreg3.125 mg twice a day.06/12/2005 - a right and left heart catheterization was performed at [facility] revealing nonobstructive coronary artery disease,left ventricular ejection fraction of 50%, moderate pulmonary hypertension,severely elevated left ventricular end-diastolic pressure, normal cardiacoutput and normal cardiac index. The patient was started on Lasix 40 mg twicea day.02/14/2008 - a right and left heart catheterization was performed at [facility] revealing mild 3 vessel coronary arterydisease, mildly reduced left ventricular systolic function (no ejectionfraction noted on the report), mild mitral regurgitation, mildly elevated leftventricular end-diastolic pressure, mild pulmonary hypertension and a normalcardiac index. No changes were made to the medical regimen.02/28/2013 - a right and left heart catheterization performed at [facility] reveals mild 3 vessel coronary artery disease, mild pulmonaryhypertension, preserved cardiac index and no evidence of cardiac shunt. Thisstudy was performed due to an abnormal stress test and a suspected patentforamen ovale versus ASD on echocardiogram. Medical therapy was recommendedbut not detailed in the report.03/05/2017 - a right and left heart catheterization was performed at [facility] revealing nonobstructive coronary artery disease, mildlyreduced left ventricular systolic function by noninvasive imaging, moderatelyelevated right-sided heart pressures and mildly elevated pulmonary capillarywedge pressure, low normal cardiac output, low normal cardiac index andmoderate to severe systemic hypertension. Lasix 20 mg daily was re-added. Thepatient was continued on an angiotensin-converting enzyme inhibitor and a betablocker was recommended.Electrocardi ograms:05/16/2017 - a 12-lead electrocardiogram reveals normal sinus rhythm at 58 bpm. There is a left bundle branch block present.06/30/2017 - a 12-lead electrocardiogram reveals sinus bradycardia at 53 bpm.There is a left bundle branch block present.MEDICAL DECISION MAKING:Moderate risk with multiple cardiovascular comorbidities that require ongoingtreatment and evaluations.IMPRESSION:1 . Dyspnea on exertion - ICD9: 786.09, ICD10: R06.09 (primary diagnosis),likely multi-factorial, worsened by underlying pulmonary disease, obstructivesleep apnea not treated, history of both systolic and diastolic heart failure,intolerant of diuretic therapy, gastroesophageal reflux disease and obesity.Patient is very inactive at home. No changes over the past 1 month. Stable.2. Edema, unspecified type - ICD9: 782.3, ICD10: R60.9, likely multi-factorialsimilar to problem #1. Persistent some degree. Slightly better withoutCelebrex. Patient inactive for large amounts of time. Not responsive todiuretics in the past. No significant change.3. Chronic combined systolic and diastolic congestive heart failure (HCC) -ICD9: 428.42, 428.0, ICD10: I50.42, most recent echocardiogram with improvedsystolic function and grade 1 diastolic dysfunction. Currently only onlisinopril due to the patient not tolerating diuretic therapy. The patientstates that her previous physicians took her off of carvedilol. This was dueto low blood pressures. Diuretics in the past have not significantly improvedher lower extremity edema. No changes over the past month.4. Essential hypertension - ICD9: 401.9, ICD10: I10 Patient relates constantright knee pain which may be driving her blood pressure higher. Blood pressurebetter today.5. Pulmonary HTN (HCC) - ICD9: 416.8, ICD10: I27.2, diagnosed by multiplecardiac catheterizations in the past.6. JEREMY (obstructive sleep apnea) - ICD9: 327.23, ICD10: G47.33, not currentlytreated as the patient is intolerant of her mask.7. Gastroesophageal reflux disease, esophagitis presence not specified - ICD9:530.81, ICD10: K21.9, care per primary care team.8. Fibromyalgia - ICD9: 729.1, ICD10: M79.79. Restrictive lung disease - ICD9: 518.89, ICD10: J98.4, care per pulmonology.10. Obesity, Class III, BMI 40-49.9 (morbid obesity) (HCC) - ICD9: 278.01,ICD10: E66.0111. Preoperative cardiovascular evaluation prior to planned right kneereplacement. The patient's risk for the surgery as moderate. I would placeher risk in the 5-10% range for any redo surgery. No further workup isnecessary prior to that procedure.12. Nonobstructive coronary artery disease by multiple cardiaccatheterizations. PLAN:Continue current medical therapy.Regular aerobic activity as able. We have discussed that this may be somesimple arm exercises while she is seated.Continue with efforts at weight loss.Patient will follow-up with me in 3 months or sooner if necessary.A copy of this note will be provided to the requesting physician by way ofshared medical record or to the requesting physician via U.S. Mail.This document was generated utilizing [employer]. I have reviewed andverified that the contents of the document are accurate with the exception ofminor grammatical, spelling and punctuation errors.CONTACT INFORMATION:Thank you for allowing us to participate in the care of this very pleasantpatient. Please free to contact us if we can be of any further assistance.Italo Ann MD, [facility] and Mechelle DoddMdpartment of Cardiovascular MedicineSage Memorial Hospital [facility] Institute[address] [address]Dtrafh: [phone] Referring Provider: CONRAD SOSA [[id number]]Allergies As of Date: 05/27/2018 Noted Allergy ReactionLATEX 06/30/2017 2 - RashPENICILLIN 06/30/2017 2 - RashSULFA (SULFONAMIDE ANTIBIOTICS) 06/30/2017 2 - RashDate Reviewed: 05/27/2018Reviewed by: Italo Ann - Fully AssessedReason for Visit: Follow Up [171]Primary Visit Diagnosis:Chronic combined systolic and diastolic congestive heart failure (HCC) [I50.42] Other Visit Diagnoses:Dyspnea on exertion [R06.09] Essential hypertension [I10] Pulmonary HTN (HCC) [I27.20] Obesity, Class III, BMI >= 40 (morbid obesity) E66.01 [E66.01] JEREMY (obstructive sleep apnea) [G47.33] Localized edema [R60.0]Prescriptions as of 05/27/2018 Sig: PANTOPRAZOLE 40 MG GRANULES F* Take 40 mg by mouth twice clay* CETIRIZINE 10 MG TABLET Take 10 mg by mouth once dante* OXYCODONE-ACETAMINOPHEN 5 MG-* Take 1 tablet by mouth as nee* FLUTICASONE 50 MCG/ACTUATION * Use 2 Sprays in each nostril * ALBUTEROL SULFATE HFA 90 MCG/* Inhale 2 Puffs as instructed * BUDESONIDE-FORMOTEROL HFA 160* Inhale 2 Puffs as instructed * LISINOPRIL 40 MG TABLET Take 1 tablet by mouth once d* HYDROXYZINE HCL 10 MG TABLET Take by mouth three times da* TEMAZEPAM 15 MG CAPSULE Take by mouth at bedtime as * FIBERCON ORAL Take by mouth. TIZANIDINE 4 MG CAPSULE Take by mouth daily at bedti* PANTOPRAZOLE 80 MG BOLUS Inject intravenously DAILY (6* CELECOXIB 200 MG CAPSULE Take by mouth twice daily. ROPINIROLE 0.5 MG TABLET Take 0.5 mg by mouth daily at*Problem List As Of Date 05/27/2018 Noted Resolved Obesity, Class III, BMI >= 40 (morbid obesity) *INVALID FOR* Chronic combined systolic and diastolic congest*INVALID FOR* Pulmonary HTN (HCC) [I27.20] INVALID FOR* Essential hypertension [I10] INVALID FOR* JEREMY (obstructive sleep apnea) [G47.33] INVALID FOR* Gastroesophageal reflux disease [K21.9] INVALID FOR* Fibromyalgia [M79.7] INVALID FOR* Restrictive lung disease [J98.4] INVALID FOR* Cramps of left lower extremity [R25.2] INVALID FOR* Dyspnea on exertion [R06.09] INVALID FOR* Localized edema [R60.0] INVALID FOR* Status:Closed by LUC ANN MD on 05/27/18 Normal [facility] PROGRESSon 05-27-2018 Protein mass conc HNO ID: [id number]: Italo Montezervice: (none)Author Type: PhysicianType: Progress NotesFiled: 05/27/2018 1:19 PMNote Text:[facility] InstituteRobert [facility] Department of Cardiovascular MedicineOUTPATIENT VISIT DATE 05/27/18OUTPATIENT VISIT TYPEESTABLATRIUM HEALTHPRATRIUM HEALTH CLEVELANDRY CARE PHYSICIAN:Conrad Sosa, DO[address] [place] [address]Tfamw: [phone]: [phone] COMPLAINT:Patient presents with:Follow UpHISTORY OF PRESENT ILLNESS:Castillo Graham is a 61 year old female with a complex past medical history ofchronic diastolic heart failure, mild nonobstructive coronary arterydisease, possible secundum type atrial septal defect, essentialhypertension, pulmonary hypertension, obstructive sleep apnea intolerantof face mask, gastroesophageal reflux disease, fibromyalgia and eitherreactive or restrictive lung disease.06/30/2017The patient presents today as a new consult for weight gain and swelling.She had previously been evaluated and under the care of Dr. Schilling [facility]. She has had multiple procedures performed which are detailed below. The patient relates being on Lasix in the past for her lower extremityedema. Apparently the doses were gradually increased due to lack ofresponse. Eventually the patient developed significant renalinsufficiency and the Lasix had to be decreased or stopped. The patientstates that she had terrible cramping with the doses of Lasix. She statesshe was unable to continue taking it. She is now not currently on anydiuretic therapy. She believes the swelling has worsened in her lowerextremities all the way up her legs and into her abdomen. She has gainedapproximately 11 pounds since February of this year. She does state that shewas taking cocy-dgb-kmpoumu diet pills until recently. They were notworking. The patient has chronic complaints of dyspnea and dyspnea onexertion. She has been treated with lisinopril for her blood pressure.The Lasix was used to try to decrease her edema but was not successful.The patient and her son seem frustrated with the care they were given bythe previous cardiology team. By my review of the testing it seems theprevious arts and humanities council director was going by the guidelines with continuedreasonable testing in an effort to try to help the patient's situation.She and her son seems very upset with the lack of progress.07/21/2017The patient presents today for a 2-3 week visit. I have reviewed herprevious testing and it is documented below. The results from a sleepstudy in May 2017 shows mild obstructive sleep apnea. It wasrecommended that she be titrated on CPAP. The patient states that herhome equipment is to be delivered. She continues to have swelling. Shecontinues to have dyspnea on exertion. It has not worsened since herprevious visit. We have reviewed her medications again today. She hasbeen on Celebrex for quite some time and this could certainly cause fluidoverload. It is not clear what the exact etiology of her continuedsymptoms are. It is most likely that his multi-factorial. The patient isalso facing a right knee replacement in the near future. She does nothave significant coronary artery disease.01/04/2018The patient presents today for a roughly 6 month follow-up. The patientfeels about the same as she did before. She stopped her Celebrex and hadmay be a slight improvement in her swelling. Unfortunately she still hassome swelling in her knees and thighs bilaterally. She has been unable totolerate diuretics in the past. She has had multiple invasiveevaluations. Her son states that she truly is not active at home at all.She may sit in her chair for roughly 10-12 hours every day. She statesthat it's because of her knee pain that she is unable to get up and movearound. We have suggested that she needs to get up and move some. Herb needs to make changes in her diet. The patient does complain of asensation of her heartbeat in her back that radiates around to her chestat times. This does not cause any syncopal or near syncopal episodes. Itis a vague sensation.04/08/2018The patient presents today for 3 month follow-up visit. The patient hasmade some dietary changes. She has lost 2 pounds since her last visit.She is trying to change her lifestyle. She still has some swelling in herlower extremities. This was not responsive to diuretics in the past. Thepatient denies any chest pain or unusual shortness of breath. The patientinforms me at the end of our interview that she is actually taking herlisinopril 20 mg twice a day and not once a day as listed in ourmedications. She does use ibuprofen occasionally. Her blood pressureremains moderately elevated today. She believes this is because ofconstant right knee pain.05/27/2018The patient presents today for a roughly 1 month follow-up visit. She hasnot been able to lose weight. She actually has gained 7 pounds since herlast visit. She denies any new cardiac symptoms since her last visit.She is continuing to have problems with her right knee replacement. Shemay have to have a second surgery. She still has lower extremity edemanow occurring mostly on the left with intimal on the right. This hasactually been a chronic problem.PAST MEDICAL HISTORYDiagnosis Date- Anxiety- ASD (atrial septal defect)- Asthma- CAD (coronary artery disease)- CHF (congestive heart failure) ([facility])- DM (diabetes mellitus) ([facility])- Fibromyalgia- GERD (gastroesophageal reflux disease)- HTN (hypertension)- OA (osteoarthritis) of knee- JEREMY (obstructive sleep apnea)- Pulmonary HTN (HCC)- Restrictive lung disease- Vitamin D deficiencyPAST SURGICAL HISTORYProcedure Laterality Date- APPENDECTOMY HX- CARDIAC CATH 02/2013 Mild CAD / Pulm HTN- CARDIAC CATH 03/05/2017 Normal- COLONOSCOPY 02/2013- ECHO 05/2009 EF 30% LVH- EGD 02/2013- FOOT SURGERY HX- GASTRIC BYPASS HX- PAST SURGICAL HISTORY OF - TONSILLECTOMY HXSocial HistorySubstance Use Topics- Smoking status: Passive Smoke Exposure - Never Smoker Types: Cigarettes- Smokeless tobacco: Never Used- Alcohol use NoFAMILY HISTORYProblem Relation Age of Onset- Adopted: Yes- Family history unknown: YesALLERGIES:ALLERGIESAl lergen Reactions- Latex Rash- Penicillin Rash- Sulfa (Sulfonamide * RashMEDICATIONS:pantopra zole (PROTONIX) 40 mg grps Take 40 mg by mouth twice daily beforemeals (0600/1600).cetirizine (ZYRTEC) 10 mg tablet Take 10 mg by mouth once daily.oxyCODONE-acetamin ophen (PERCOCET) 5-325 mg tablet Take 1 tablet by mouthas needed.fluticasone (FLONASE) 50 mcg/actuation nasal spray Use 2 Sprays in eachnostril twice daily at 6AM and 9PM.albuterol HFA (PROVENTIL HFA, VENTOLIN HFA) 90 mcg/actuation inhalerInhale 2 Puffs as instructed as needed for Wheezing/Shortness of Breath.budesonide-formot kathrin (SYMBICORT) 160-4.5 mcg/actuation inhaler Inhale 2Puffs as instructed twice daily.lisinopril (ZESTRIL, PRINIVIL) 40 mg tablet Take 1 tablet by mouth oncedaily.hydrOXYzine HCl (ATARAX) 10 mg tablet Take by mouth three times daily asneeded.temazepam (RESTORIL) 15 mg cap Take by mouth at bedtime as needed.CALCIUM POLYCARBOPHIL (FIBERCON ORAL) Take by mouth.tiZANidine HCl 4 mg capsule Take by mouth daily at bedtime.pantoprazole (PROTONIX) 40 mg injection Inject intravenously DAILY (6 AM).celecoxib (CELEBREX) 200 mg capsule Take by mouth twice daily.rOPINIRole (REQUIP) 0.5 mg tablet Take 0.5 mg by mouth daily at bedtime.REVIEW OF SYSTEMS:A complete review of systems was obtained and is remarkable for that notedabove. The remaining systems are unremarkable.I personally interviewed, confirmed and edited the above information ifobtained by others.PHYSICAL EXAMINATION:BP 143/68 (BP Site: Left Arm, BP Position: Sitting, BP Cuff Size: RegularAdult) Pulse 64 Resp 16 Ht 160 cm (5' 3 ) Wt 120.2 kg (265 lb) SpO2 98% BMI 46.94 kg/m?General: Well appearing, in no acute distress.Eyes: Conjunctiva normal, sclera normalNeck: No jugular venous distention, no palpable thyromegaly.Heart: Regular rhythm, S1, S2 normal, no S3, no S4. No murmur. No carotidbruits.Respirator y: Mildly decreased breath sounds bilaterally. Good respiratoryeffort.GI: Soft, nontender, bowel sounds normal, no palpable hepatosplenomegalyExtrem ities: Normal pulses in distal lower extremities. Moderate leftlower extremity edema with trivial to mild right lower extremity edema.There is skin discoloration in the right lower extremityNeuro: Alert, cooperative with no focal deficit.Psych: Pleasant and cooperative.Skin: No rashes or wounds.CARDIOVASCULAR MEDICINE TESTING:Echocardiograms: 11/28/2014 - [facility] with an ejectionfraction of 60%. There was no significant valvular disease identified.There was no comment on diastolic function.02/24/2017 - [facility] reduced left ventricular systolic functionwith an ejection fraction of 45-50%. There was minimal concentric leftventricular hypertrophy present. There was evidence of grade 1 diastolicdysfunction. There was mild mitral regurgitation. No estimate a rightventricular systolic pressure was possible on this study.Stress Evaluations:02/26/2016 - a Lexiscan nuclear stress evaluation at the [facility] revealed a left ventricular ejection fraction of 50% with abnormalseptal wall motion. There was a small defect involving the inferior ohapical wall which was fixed. This was felt to likely represent artifact.There was no other evidence of Lexiscan stress-induced ischemia.02/24/2017 - a Lexiscan nuclear stress evaluation at the [facility] revealed mildly diminished left ventricular systolic function withan ejection fraction of 48%. There was a moderate sized anterior septaldefect which was partially reversible noted. This was read as suggestiveof possible stress-induced ischemia.Cardiac Catheterizations: 004 - a cardiac catheterization performed at the [facility] revealed normal coronary arteries. There was moderately decreasedleft ventricular systolic function noted with an ejection fraction of 30%. Moderately elevated right heart pressures and a normal cardiac index werenoted. The patient was continued on Demadex, Diovan, around oh lactone,Coreg 3.125 mg twice a day.06/12/2005 - a right and left heart catheterization was performed at [facility] revealing nonobstructive coronary arterydisease, left ventricular ejection fraction of 50%, moderate pulmonaryhypertension, severely elevated left ventricular end-diastolic pressure,normal cardiac output and normal cardiac index. The patient was startedon Lasix 40 mg twice a day.02/14/2008 - a right and left heart catheterization was performed at [facility] revealing mild 3 vessel coronaryartery disease, mildly reduced left ventricular systolic function (noejection fraction noted on the report), mild mitral regurgitation, mildlyelevated left ventricular end-diastolic pressure, mild pulmonaryhypertension and a normal cardiac index. No changes were made to [facility] regimen.02/28/2013 - a right and left heart catheterization performed at [facility] reveals mild 3 vessel coronary artery disease, mildpulmonary hypertension, preserved cardiac index and no evidence of cardiacshunt. This study was performed due to an abnormal stress test and asuspected patent foramen ovale versus ASD on echocardiogram. Medicaltherapy was recommended but not detailed in the report.03/05/2017 - a right and left heart catheterization was performed at [facility] revealing nonobstructive coronary artery disease,mildly reduced left ventricular systolic function by noninvasive imaging,moderately elevated right-sided heart pressures and mildly elevatedpulmonary capillary wedge pressure, low normal cardiac output, low normalcardiac index and moderate to severe systemic hypertension. Lasix 20 mgdaily was re-added. The patient was continued on anangiotensin-converting enzyme inhibitor and a beta lianna wasrecommended.Electroca rdiograms:05/16/2017 - a 12-lead electrocardiogram reveals normal sinus rhythm at 58bpm. There is a left bundle branch block present.06/30/2017 - a 12-lead electrocardiogram reveals sinus bradycardia at 53bpm. There is a left bundle branch block present.MEDICAL DECISION MAKING:Moderate risk with multiple cardiovascular comorbidities that requireongoing treatment and evaluations.IMPRESSION:1 . Dyspnea on exertion - ICD9: 786.09, ICD10: R06.09 (primary diagnosis),likely multi-factorial, worsened by underlying pulmonary disease,obstructive sleep apnea not treated, history of both systolic anddiastolic heart failure, intolerant of diuretic therapy, gastroesophagealreflux disease and obesity. Patient is very inactive at home. No changesover the past 1 month. Stable.2. Edema, unspecified type - ICD9: 782.3, ICD10: R60.9, likelymulti-factorial similar to problem #1. Persistent some degree. Slightlybetter without Celebrex. Patient inactive for large amounts of time. Notresponsive to diuretics in the past. No significant change.3. Chronic combined systolic and diastolic congestive heart failure (HCC)- ICD9: 428.42, 428.0, ICD10: I50.42, most recent echocardiogram withimproved systolic function and grade 1 diastolic dysfunction. Currentlyonly on lisinopril due to the patient not tolerating diuretic therapy.The patient states that her previous physicians took her off ofcarvedilol. This was due to low blood pressures. Diuretics in the pasthave not significantly improved her lower extremity edema. No changesover the past month.4. Essential hypertension - ICD9: 401.9, ICD10: I10 Patient relatesconstant right knee pain which may be driving her blood pressure higher.Blood pressure better today.5. Pulmonary HTN (HCC) - ICD9: 416.8, ICD10: I27.2, diagnosed by multiplecardiac catheterizations in the past.6. JEREMY (obstructive sleep apnea) - ICD9: 327.23, ICD10: G47.33, notcurrently treated as the patient is intolerant of her mask.7. Gastroesophageal reflux disease, esophagitis presence not specified -ICD9: 530.81, ICD10: K21.9, care per primary care team.8. Fibromyalgia - ICD9: 729.1, ICD10: M79.79. Restrictive lung disease - ICD9: 518.89, ICD10: J98.4, care perpulmonology.10. Obesity, Class III, BMI 40-49.9 (morbid obesity) (HCC) - ICD9: 278.01,ICD10: E66.0111. Preoperative cardiovascular evaluation prior to planned right kneereplacement. The patient's risk for the surgery as moderate. I wouldplace her risk in the 5-10% range for any redo surgery. No further workupis necessary prior to that procedure.12. Nonobstructive coronary artery disease by multiple cardiaccatheterizations. PLAN:Continue current medical therapy.Regular aerobic activity as able. We have discussed that this may be somesimple arm exercises while she is seated.Continue with efforts at weight loss.Patient will follow-up with me in 3 months or sooner if necessary.A copy of this note will be provided to the requesting physician by [facility] or to the requesting physician via U.S. Mail.This document was generated utilizing [employer]. I have reviewedand verified that the contents of the document are accurate with theexception of minor grammatical, spelling and punctuation errors.CONTACT INFORMATION:Thank you for allowing us to participate in the care of this very pleasantpatient. Please free to contact us if we can be of any furtherassistance.Maria A Ann MD, Paige and Mechelle DoddLegacy Healthment of Cardiovascular MedicineSelect Medical [facility] Dublinrt and Vascular InstituteOhiohealth[address], [place] [address]Cgocuq: [phone] Normal [facility] CNOVon 04-08-2018 CNOV Office Visit (CARDFT) MILLIE GRAHAM ([id number]) 1955 [facility] Time Provider Department04/08/18 12:30 PM ITALO ANN During your visit today, we recorded the following information about you: Pulse Respiration Blood pressure Weight 75/minute 18/minute 163/70 117 kg Height 1.6 Cece Ann MD 04/08/2018 12:59 PM [facility] InstituteRobert and Mechelle Dodd Department of Cardiovascular MedicineOUTPATIENT VISIT DATE 04/08/18OUTPATIENT VISIT TYPEESTABLISHEDPRIMARY CARE PHYSICIAN:Conrad Sosa DO[address] [facility] [place] [address]Yieyl: [phone]: [phone] COMPLAINT:Patient presents with:Follow UpHISTORY OF PRESENT ILLNESS:Castillo Graham is a 61 year old female with a complex past medical history ofchronic diastolic heart failure, mild nonobstructive coronary artery disease,possible secundum type atrial septal defect, essential hypertension, pulmonaryhypertension, obstructive sleep apnea intolerant of face mask, gastroesophagealreflux disease, fibromyalgia and either reactive or restrictive lung disease.06/30/2017The patient presents today as a new consult for weight gain and swelling. Shehad previously been evaluated and under the care of Dr. Schilling of [facility]. Shehas had multiple procedures performed which are detailed below. The patientrelates being on Lasix in the past for her lower extremity edema. Apparentlythe doses were gradually increased due to lack of response. Eventually thepatient developed significant renal insufficiency and the Lasix had to bedecreased or stopped. The patient states that she had terrible cramping withthe doses of Lasix. She states she was unable to continue taking it. She isnow not currently on any diuretic therapy. She believes the swelling hasworsened in her lower extremities all the way up her legs and into her abdomen. She has gained approximately 11 pounds since February of this year. She does statethat she was taking gsik-mnc-trgwcgc diet pills until recently. They were notworking. The patient has chronic complaints of dyspnea and dyspnea onexertion. She has been treated with lisinopril for her blood pressure. TheLasix was used to try to decrease her edema but was not successful. Thepatient and her son seem frustrated with the care they were given by theprevious cardiology team. By my review of the testing it seems the previouscardiologist was going by the guidelines with continued reasonable testing inan effort to try to help the patient's situation. She and her son seems veryupset with the lack of progress.07/21/2017The patient presents today for a 2-3 week visit. I have reviewed her previoustesting and it is documented below. The results from a sleep study in May2017 shows mild obstructive sleep apnea. It was recommended that she betitrated on CPAP. The patient states that her home equipment is to bedelivered. She continues to have swelling. She continues to have dyspnea onexertion. It has not worsened since her previous visit. We have reviewed hermedications again today. She has been on Celebrex for quite some time and thiscould certainly cause fluid overload. It is not clear what the exact etiologyof her continued symptoms are. It is most likely that his multi-factorial.The patient is also facing a right knee replacement in the near future. Shedoes not have significant coronary artery disease.01/04/2018The patient presents today for a roughly 6 month follow-up. The patient feelsabout the same as she did before. She stopped her Celebrex and had may be aslight improvement in her swelling. Unfortunately she still has some swellingin her knees and thighs bilaterally. She has been unable to tolerate diureticsin the past. She has had multiple invasive evaluations. Her son states thatarleth truly is not active at home at all. She may sit in her chair for oejpdif11-14 hours every day. She states that it's because of her knee pain that sheis unable to get up and move around. We have suggested that she needs to getup and move some. She also needs to make changes in her diet. The patientdoes complain of a sensation of her heartbeat in her back that radiates aroundto her chest at times. This does not cause any syncopal or near syncopalepisodes. It is a vague sensation.04/08/2018The patient presents today for 3 month follow-up visit. The patient has madesome dietary changes. She has lost 2 pounds since her last visit. She istrying to change her lifestyle. She still has some swelling in her lowerextremities. This was not responsive to diuretics in the past. The patientdenies any chest pain or unusual shortness of breath. The patient informs meat the end of our interview that she is actually taking her lisinopril 20 mgtwice a day and not once a day as listed in our medications. She does useibuprofen occasionally. Her blood pressure remains moderately elevated today.She believes this is because of constant right knee pain.PAST MEDICAL HISTORYDiagnosis Date- Anxiety- ASD (atrial septal defect)- Asthma- CAD (coronary artery disease)- CHF (congestive heart failure) ([facility])- DM (diabetes mellitus) ([facility])- Fibromyalgia- GERD (gastroesophageal reflux disease)- HTN (hypertension)- OA (osteoarthritis) of knee- JEREMY (obstructive sleep apnea)- Pulmonary HTN- Restrictive lung disease- Vitamin D deficiencyPAST SURGICAL HISTORYProcedure Laterality Date- APPENDECTOMY HX- CARDIAC CATH 02/2013 Mild CAD / Pulm HTN- CARDIAC CATH 03/05/2017 Normal- COLONOSCOPY 02/2013- ECHO 05/2009 EF 30% LVH- EGD 02/2013- FOOT SURGERY HX- GASTRIC BYPASS HX- PAST SURGICAL HISTORY OF - TONSILLECTOMY HXSocial HistorySubstance Use Topics- Smoking status: Passive Smoke Exposure - Never Smoker Types: Cigarettes- Smokeless tobacco: Never Used- Alcohol use NoFAMILY HISTORYProblem Relation Age of Onset- Adopted: Yes- Family history unknown: YesALLERGIES:ALLERGIESAl lergen Reactions- Latex Rash- Penicillin Rash- Sulfa (Sulfonamide * RashMEDICATIONS:pantopra zole (PROTONIX) 40 mg injection Inject intravenously DAILY (6 AM).hydrOXYzine HCl (ATARAX) 10 mg tablet Take by mouth three times daily asneeded.celecoxib (CELEBREX) 200 mg capsule Take by mouth twice daily.temazepam (RESTORIL) 15 mg cap Take by mouth at bedtime as needed.rOPINIRole (REQUIP) 0.5 mg tablet Take 0.5 mg by mouth daily at bedtime.CALCIUM POLYCARBOPHIL (FIBERCON ORAL) Take by mouth.lisinopril (ZESTRIL, PRINIVIL) 20 mg tablet Take by mouth once daily.tiZANidine HCl 4 mg capsule Take by mouth daily at bedtime.REVIEW OF SYSTEMS:A complete review of systems was obtained and is remarkable for that notedabove. The remaining systems are unremarkable.I personally interviewed, confirmed and edited the above information ifobtained by others.PHYSICAL EXAMINATION:BP 163/70 Pulse 75 Resp 18 Ht 160 cm (5' 3 ) Wt 117 kg (258 lb) SpO2 98% BMI 45.70 kg/m?General: Well appearing, in no acute distress.Eyes: Conjunctiva normal, sclera normalNeck: No jugular venous distention, no palpable thyromegaly.Heart: Regular rhythm, S1, S2 normal, no S3, no S4. No murmur. No carotidbruits.Respirator y: Mildly decreased breath sounds bilaterally. Good respiratoryeffort.GI: Soft, nontender, bowel sounds normal, no palpable hepatosplenomegalyExtrem ities: Normal pulses in distal lower extremities. Moderate 2+ bilaterallower extremity edema, left greater than right. There is skin discoloration inthe right lower extremityNeuro: Alert, cooperative with no focal deficit.Psych: Pleasant and cooperative.Skin: No rashes or wounds.CARDIOVASCULAR MEDICINE TESTING:Echocardiograms: 11/28/2014 - a 2-D echocardiogram performed at the [facility] normal left ventricular systolic function with an ejection fraction of60%. There was no significant valvular disease identified. There was nocomment on diastolic function.02/24/2017 - a 2-D echocardiogram performed at the [facility] low normal to mildly reduced left ventricular systolic function withan ejection fraction of 45-50%. There was minimal concentric left ventricularhypertrophy present. There was evidence of grade 1 diastolic dysfunction.There was mild mitral regurgitation. No estimate a right ventricular systolicpressure was possible on this study.Stress Evaluations:02/26/2016 - [facility]% with abnormal septal wallmotion. There was a small defect involving the inferior oh apical wall whichwas fixed. This was felt to likely represent artifact. There was no otherevidence of Lexiscan stress-induced ischemia.02/24/2017 - [facility] systolic function with an ejectionfraction of 48%. There was a moderate sized anterior septal defect which waspartially reversible noted. This was read as suggestive of possiblestress-induced ischemia.Cardiac Catheterizations: 004 - [facility]. There was moderately decreased leftventricular systolic function noted with an ejection fraction of 30%.Moderately elevated right heart pressures and a normal cardiac index werenoted. The patient was continued on Demadex, Diovan, around oh lactone, Coreg3.125 mg twice a day.06/12/2005 - a right and left heart catheterization was performed at [facility] revealing nonobstructive coronary artery disease,left ventricular ejection fraction of 50%, moderate pulmonary hypertension,severely elevated left ventricular end-diastolic pressure, normal cardiacoutput and normal cardiac index. The patient was started on Lasix 40 mg twicea day.02/14/2008 - a right and left heart catheterization was performed at [facility] revealing mild 3 vessel coronary arterydisease, mildly reduced left ventricular systolic function (no ejectionfraction noted on the report), mild mitral regurgitation, mildly elevated leftventricular end-diastolic pressure, mild pulmonary hypertension and a normalcardiac index. No changes were made to the medical regimen.02/28/2013 - a right and left heart catheterization performed at [facility] reveals mild 3 vessel coronary artery disease, mild pulmonaryhypertension, preserved cardiac index and no evidence of cardiac shunt. Thisstudy was performed due to an abnormal stress test and a suspected patentforamen ovale versus ASD on echocardiogram. Medical therapy was recommendedbut not detailed in the report.03/05/2017 - a right and left heart catheterization was performed at [facility] revealing nonobstructive coronary artery disease, mildlyreduced left ventricular systolic function by noninvasive imaging, moderatelyelevated right-sided heart pressures and mildly elevated pulmonary capillarywedge pressure, low normal cardiac output, low normal cardiac index andmoderate to severe systemic hypertension. Lasix 20 mg daily was re-added. Thepatient was continued on an angiotensin-converting enzyme inhibitor and a betablocker was recommended.Electrocardi ograms:05/16/2017 - a 12-lead electrocardiogram reveals normal sinus rhythm at 58 bpm. There is a left bundle branch block present.06/30/2017 - a 12-lead electrocardiogram reveals sinus bradycardia at 53 bpm.There is a left bundle branch block present.IMPRESSION:1. Dyspnea on exertion - ICD9: 786.09, ICD10: R06.09 (primary diagnosis),likely multi-factorial, worsened by underlying pulmonary disease, obstructivesleep apnea not treated, history of both systolic and diastolic heart failure,intolerant of diuretic therapy, gastroesophageal reflux disease and obesity.Patient is very inactive at home. No changes over the past 3 months.2. Edema, unspecified type - ICD9: 782.3, ICD10: R60.9, likely multi-factorialsimilar to problem #1. Persistent some degree. Slightly better withoutCelebrex. Patient inactive for large amounts of time. Not responsive todiuretics in the past.3. Chronic combined systolic and diastolic congestive heart failure (HCC) -ICD9: 428.42, 428.0, ICD10: I50.42, most recent echocardiogram with improvedsystolic function and grade 1 diastolic dysfunction. Currently only onlisinopril due to the patient not tolerating diuretic therapy. The patientstates that her previous physicians took her off of carvedilol. This was dueto low blood pressures. Diuretics in the past have not significantly improvedher lower extremity edema. No changes over the past 3 months.4. Essential hypertension - ICD9: 401.9, ICD10: I10, blood pressure moderatelyelevated today. Patient relates constant right knee pain which may be drivingher blood pressure higher.5. Pulmonary HTN (HCC) - ICD9: 416.8, ICD10: I27.2, diagnosed by multiplecardiac catheterizations in the past.6. JEREMY (obstructive sleep apnea) - ICD9: 327.23, ICD10: G47.33, not currentlytreated as the patient is intolerant of her mask.7. Gastroesophageal reflux disease, esophagitis presence not specified - ICD9:530.81, ICD10: K21.9, care per primary care team.8. Fibromyalgia - ICD9: 729.1, ICD10: M79.79. Restrictive lung disease - ICD9: 518.89, ICD10: J98.4, care per pulmonology.10. Obesity, Class III, BMI 40-49.9 (morbid obesity) (HCC) - ICD9: 278.01,ICD10: E66.0111. Preoperative cardiovascular evaluation prior to planned right kneereplacement. The patient's risk for the surgery as moderate. I would placeher risk in the 5-10% range. No further workup is necessary prior to thatprocedure.12. Nonobstructive coronary artery disease by multiple cardiaccatheterizations. 13. Lower extremity cramping at night. Patient worried about hypokalemia.PLAN:Continu e current medical therapy.Basic metabolic profile to evaluate renal function and potassium while on upperdose lisinopril.We have had a very long discussion regarding significant changes in thepatient's diet in an effort to help her lose weight. Weight loss maydefinitely help her symptoms. I have suggested the [employer] diet. I havealso discussed with her a pre-diabetic diet.Regular aerobic activity as able. We have discussed that this may be somesimple arm exercises while she is seated.Considered a referral to Dr. Guevara for evaluation of possible lowerextremity venous insufficiency or even lymphedema.Discussed a weight loss of 5-10 pounds over the next 3 months.Patient will follow-up with me in 1 month or sooner if necessary.A copy of this note will be provided to the requesting physician by [facility] or to the requesting physician via U.S. Mail.This document was generated utilizing [employer]. I have reviewed andverified that the contents of the document are accurate with the exception ofminor grammatical, spelling and punctuation errors.CONTACT INFORMATION:Thank you for allowing us to participate in the care of this very pleasantpatient. Please free to contact us if we can be of any further assistance.Italo Ann MD, FACCRbaptist health la granget and Mechelle DoddLegacy Healthment of Cardiovascular MedicineSelect Medical [facility] Dublinrt and Vascular InstituteMichael Ville [id number], [place] [address]Fcjsen: [phone] Referring Provider: CONRAD SOSA [[id number]]Allergies As of Date: 04/08/2018 Noted Allergy ReactionLATEX 06/30/2017 2 - RashPENICILLIN 06/30/2017 2 - RashSULFA (SULFONAMIDE ANTIBIOTICS) 06/30/2017 2 - RashDate Reviewed: 04/08/2018Reviewed by: Italo Ann - Fully AssessedReason for Visit: Follow Up [171]Primary Visit Diagnosis:Chronic combined systolic and diastolic congestive heart failure (HCC) [I50.42] Other Visit Diagnoses:Essential hypertension [I10] Pulmonary HTN [I27.20] Obesity, Class III, BMI >= 40 (morbid obesity) E66.01 [E66.01] Cramps of left lower extremity [R25.2]Order(s):lisinopr il (ZESTRIL, PRINIVIL) 40 mg tabletTake 1 tablet by mouth once daily.Disp: 90 tabletRfl: 3 BASIC METABOLIC PNL [SQBMP] Order #: [id number] FUTUREPrescriptions as of 04/08/2018 Sig: LISINOPRIL 40 MG TABLET Take 1 tablet by mouth once d* Patient taking differently: Take 40 mg by mouth twice clay* PANTOPRAZOLE 80 MG BOLUS Inject intravenously DAILY (6* HYDROXYZINE HCL 10 MG TABLET Take by mouth three times da* CELECOXIB 200 MG CAPSULE Take by mouth twice daily. TEMAZEPAM 15 MG CAPSULE Take by mouth at bedtime as * ROPINIROLE 0.5 MG TABLET Take 0.5 mg by mouth daily at* FIBERCON ORAL Take by mouth. TIZANIDINE 4 MG CAPSULE Take by mouth daily at bedti*Problem List As Of Date 04/08/2018 Noted Resolved Obesity, Class III, BMI >= 40 (morbid obesity) *INVALID FOR* Chronic combined systolic and diastolic congest*INVALID FOR* Pulmonary HTN (HCC) [I27.20] INVALID FOR* Essential hypertension [I10] INVALID FOR* JEREMY (obstructive sleep apnea) [G47.33] INVALID FOR* Gastroesophageal reflux disease [K21.9] INVALID FOR* Fibromyalgia [M79.7] INVALID FOR* Restrictive lung disease [J98.4] INVALID FOR* Cramps of left lower extremity [R25.2] INVALID FOR*Prescriptions ordered this encounter Disp Refills Start End LISINOPRIL 40 MG TABLET 90 t* 3 04/08/2018 Route: ORAL Sig: Take 1 tablet by mouth once daily.Medications Discontinued During This Encounter lisinopril (ZESTRIL, PRINIVIL) 20 mg* 04/08/2018 Class: Historical Med Route: ORAL Sig: Take by mouth once daily. Disc: Reason for discontinue is not on file. Status:Closed by LUC ANN MD on 04/08/18 Normal [facility] PROGRESSon 04-08-2018 Protein mass conc HNO ID: [id number]: Italo Montezervice: (none)Author Type: PhysicianType: Progress NotesFiled: 04/08/2018 12:59 PMNote Text:Heart and Vascular InstituteRobpresbyterian santa fe [facility] Department of Cardiovascular MedicineOUTPATIENT VISIT DATE 04/08/18OUTPATIENT VISIT TYPEESTABLISHEDPRIMARY CARE PHYSICIAN:MISAEL Garcia[address] [place] [address]Tvdth: [phone]: [phone] COMPLAINT:Patient presents with:Follow UpHISTORY OF PRESENT ILLNESS:Castillo Graham is a 61 year old female with a complex past medical history ofchronic diastolic heart failure, mild nonobstructive coronary arterydisease, possible secundum type atrial septal defect, essentialhypertension, pulmonary hypertension, obstructive sleep apnea intolerantof face mask, gastroesophageal reflux disease, fibromyalgia and eitherreactive or restrictive lung disease.06/30/2017The patient presents today as a new consult for weight gain and swelling.She had previously been evaluated and under the care of Dr. Schilling [facility]. She has had multiple procedures performed which are detailed below. The patient relates being on Lasix in the past for her lower extremityedema. Apparently the doses were gradually increased due to lack ofresponse. Eventually the patient developed significant renalinsufficiency and the Lasix had to be decreased or stopped. The patientstates that she had terrible cramping with the doses of Lasix. She statesshe was unable to continue taking it. She is now not currently on anydiuretic therapy. She believes the swelling has worsened in her lowerextremities all the way up her legs and into her abdomen. She has gainedapproximately 11 pounds since February of this year. She does state that shewas taking dsug-zoa-jvgqlps diet pills until recently. They were notworking. The patient has chronic complaints of dyspnea and dyspnea onexertion. She has been treated with lisinopril for her blood pressure.The Lasix was used to try to decrease her edema but was not successful.The patient and her son seem frustrated with the care they were given bythe previous cardiology team. By my review of the testing it seems theprevious arts and humanities council director was going by the guidelines with continuedreasonable testing in an effort to try to help the patient's situation.She and her son seems very upset with the lack of progress.07/21/2017The patient presents today for a 2-3 week visit. I have reviewed herprevious testing and it is documented below. The results from a sleepstudy in May 2017 shows mild obstructive sleep apnea. It wasrecommended that she be titrated on CPAP. The patient states that herhome equipment is to be delivered. She continues to have swelling. Shecontinues to have dyspnea on exertion. It has not worsened since herprevious visit. We have reviewed her medications again today. She hasbeen on Celebrex for quite some time and this could certainly cause fluidoverload. It is not clear what the exact etiology of her continuedsymptoms are. It is most likely that his multi-factorial. The patient isalso facing a right knee replacement in the near future. She does nothave significant coronary artery disease.01/04/2018The patient presents today for a roughly 6 month follow-up. The patientfeels about the same as she did before. She stopped her Celebrex and hadmay be a slight improvement in her swelling. Unfortunately she still hassome swelling in her knees and thighs bilaterally. She has been unable totolerate diuretics in the past. She has had multiple invasiveevaluations. Her son states that she truly is not active at home at all.She may sit in her chair for roughly 10-12 hours every day. She statesthat it's because of her knee pain that she is unable to get up and movearound. We have suggested that she needs to get up and move some. Arlethalsliyah needs to make changes in her diet. The patient does complain of asensation of her heartbeat in her back that radiates around to her chestat times. This does not cause any syncopal or near syncopal episodes. Itis a vague sensation.04/08/2018The patient presents today for 3 month follow-up visit. The patient hasmade some dietary changes. She has lost 2 pounds since her last visit.She is trying to change her lifestyle. She still has some swelling in herlower extremities. This was not responsive to diuretics in the past. Thepatient denies any chest pain or unusual shortness of breath. The patientinforms me at the end of our interview that she is actually taking herlisinopril 20 mg twice a day and not once a day as listed in ourmedications. She does use ibuprofen occasionally. Her blood pressureremains moderately elevated today. She believes this is because ofconstant right knee pain.PAST MEDICAL HISTORYDiagnosis Date- Anxiety- ASD (atrial septal defect)- Asthma- CAD (coronary artery disease)- CHF (congestive heart failure) (HCC)- DM (diabetes mellitus) (HCC)- Fibromyalgia- GERD (gastroesophageal reflux disease)- HTN (hypertension)- OA (osteoarthritis) of knee- JEREMY (obstructive sleep apnea)- Pulmonary HTN- Restrictive lung disease- Vitamin D deficiencyPAST SURGICAL HISTORYProcedure Laterality Date- APPENDECTOMY HX- CARDIAC CATH 02/2013 Mild CAD / Pulm HTN- CARDIAC CATH 03/05/2017 Normal- COLONOSCOPY 02/2013- ECHO 05/2009 EF 30% LVH- EGD 02/2013- FOOT SURGERY HX- GASTRIC BYPASS HX- PAST SURGICAL HISTORY OF - TONSILLECTOMY HXSocial HistorySubstance Use Topics- Smoking status: Passive Smoke Exposure - Never Smoker Types: Cigarettes- Smokeless tobacco: Never Used- Alcohol use NoFAMILY HISTORYProblem Relation Age of Onset- Adopted: Yes- Family history unknown: YesALLERGIES:ALLERGIESAl lergen Reactions- Latex Rash- Penicillin Rash- Sulfa (Sulfonamide * RashMEDICATIONS:pantopra zole (PROTONIX) 40 mg injection Inject intravenously DAILY (6 AM).hydrOXYzine HCl (ATARAX) 10 mg tablet Take by mouth three times daily asneeded.celecoxib (CELEBREX) 200 mg capsule Take by mouth twice daily.temazepam (RESTORIL) 15 mg cap Take by mouth at bedtime as needed.rOPINIRole (REQUIP) 0.5 mg tablet Take 0.5 mg by mouth daily at bedtime.CALCIUM POLYCARBOPHIL (FIBERCON ORAL) Take by mouth.lisinopril (ZESTRIL, PRINIVIL) 20 mg tablet Take by mouth once daily.tiZANidine HCl 4 mg capsule Take by mouth daily at bedtime.REVIEW OF SYSTEMS:A complete review of systems was obtained and is remarkable for that notedabove. The remaining systems are unremarkable.I personally interviewed, confirmed and edited the above information ifobtained by others.PHYSICAL EXAMINATION:BP 163/70 Pulse 75 Resp 18 Ht 160 cm (5' 3 ) Wt 117 kg (258lb) SpO2 98% BMI 45.70 kg/m?General: Well appearing, in no acute distress.Eyes: Conjunctiva normal, sclera normalNeck: No jugular venous distention, no palpable thyromegaly.Heart: Regular rhythm, S1, S2 normal, no S3, no S4. No murmur. No carotidbruits.Respirator y: Mildly decreased breath sounds bilaterally. Good respiratoryeffort.GI: Soft, nontender, bowel sounds normal, no palpable hepatosplenomegalyExtrem ities: Normal pulses in distal lower extremities. Moderate 2+bilateral lower extremity edema, left greater than right. There is skindiscoloration in the right lower extremityNeuro: Alert, cooperative with no focal deficit.Psych: Pleasant and cooperative.Skin: No rashes or wounds.CARDIOVASCULAR MEDICINE TESTING:Echocardiograms: 11/28/2014 - a 2-D echocardiogram performed at the [facility] normal left ventricular systolic function with an ejectionfraction of 60%. There was no significant valvular disease identified.There was no comment on diastolic function.02/24/2017 - a 2-D echocardiogram performed at the [facility] low normal to mildly reduced left ventricular systolic functionwith an ejection fraction of 45-50%. There was minimal concentric leftventricular hypertrophy present. There was evidence of grade 1 diastolicdysfunction. There was mild mitral regurgitation. No estimate a rightventricular systolic pressure was possible on this study.Stress Evaluations:02/26/2016 - a Lexiscan nuclear stress evaluation at the [facility] revealed a left ventricular ejection fraction of 50% with abnormalseptal wall motion. There was a small defect involving the inferior ohapical wall which was fixed. This was felt to likely represent artifact.There was no other evidence of Lexiscan stress-induced ischemia.02/24/2017 - a Lexiscan nuclear stress evaluation at the [facility] revealed mildly diminished left ventricular systolic function withan ejection fraction of 48%. There was a moderate sized anterior septaldefect which was partially reversible noted. This was read as suggestiveof possible stress-induced ischemia.Cardiac Catheterizations: 004 - a cardiac catheterization performed at the [facility] revealed normal coronary arteries. There was moderately decreasedleft ventricular systolic function noted with an ejection fraction of 30%. Moderately elevated right heart pressures and a normal cardiac index werenoted. The patient was continued on Demadex, Diovan, around oh lactone,Coreg 3.125 mg twice a day.06/12/2005 - a right and left heart catheterization was performed at [facility] revealing nonobstructive coronary arterydisease, left ventricular ejection fraction of 50%, moderate pulmonaryhypertension, severely elevated left ventricular end-diastolic pressure,normal cardiac output and normal cardiac index. The patient was startedon Lasix 40 mg twice a day.02/14/2008 - a right and left heart catheterization was performed at [facility] revealing mild 3 vessel coronaryartery disease, mildly reduced left ventricular systolic function (noejection fraction noted on the report), mild mitral regurgitation, mildlyelevated left ventricular end-diastolic pressure, mild pulmonaryhypertension and a normal cardiac index. No changes were made to [facility] regimen.02/28/2013 - a right and left heart catheterization performed at [facility] reveals mild 3 vessel coronary artery disease, mildpulmonary hypertension, preserved cardiac index and no evidence of cardiacshunt. This study was performed due to an abnormal stress test and asuspected patent foramen ovale versus ASD on echocardiogram. Medicaltherapy was recommended but not detailed in the report.03/05/2017 - a right and left heart catheterization was performed at [facility] revealing nonobstructive coronary artery disease,mildly reduced left ventricular systolic function by noninvasive imaging,moderately elevated right-sided heart pressures and mildly elevatedpulmonary capillary wedge pressure, low normal cardiac output, low normalcardiac index and moderate to severe systemic hypertension. Lasix 20 mgdaily was re-added. The patient was continued on anangiotensin-converting enzyme inhibitor and a beta lianna wasrecommended.Electroca rdiograms:05/16/2017 - a 12-lead electrocardiogram reveals normal sinus rhythm at 58bpm. There is a left bundle branch block present.06/30/2017 - a 12-lead electrocardiogram reveals sinus bradycardia at 53bpm. There is a left bundle branch block present.IMPRESSION:1. Dyspnea on exertion - ICD9: 786.09, ICD10: R06.09 (primary diagnosis),likely multi-factorial, worsened by underlying pulmonary disease,obstructive sleep apnea not treated, history of both systolic anddiastolic heart failure, intolerant of diuretic therapy, gastroesophagealreflux disease and obesity. Patient is very inactive at home. No changesover the past 3 months.2. Edema, unspecified type - ICD9: 782.3, ICD10: R60.9, likelymulti-factorial similar to problem #1. Persistent some degree. Slightlybetter without Celebrex. Patient inactive for large amounts of time. Notresponsive to diuretics in the past.3. Chronic combined systolic and diastolic congestive heart failure (HCC)- ICD9: 428.42, 428.0, ICD10: I50.42, most recent echocardiogram withimproved systolic function and grade 1 diastolic dysfunction. Currentlyonly on lisinopril due to the patient not tolerating diuretic therapy.The patient states that her previous physicians took her off ofcarvedilol. This was due to low blood pressures. Diuretics in the pasthave not significantly improved her lower extremity edema. No changesover the past 3 months.4. Essential hypertension - ICD9: 401.9, ICD10: I10, blood pressuremoderately elevated today. Patient relates constant right knee pain whichmay be driving her blood pressure higher.5. Pulmonary HTN (HCC) - ICD9: 416.8, ICD10: I27.2, diagnosed by multiplecardiac catheterizations in the past.6. JEREMY (obstructive sleep apnea) - ICD9: 327.23, ICD10: G47.33, notcurrently treated as the patient is intolerant of her mask.7. Gastroesophageal reflux disease, esophagitis presence not specified -ICD9: 530.81, ICD10: K21.9, care per primary care team.8. Fibromyalgia - ICD9: 729.1, ICD10: M79.79. Restrictive lung disease - ICD9: 518.89, ICD10: J98.4, care perpulmonology.10. Obesity, Class III, BMI 40-49.9 (morbid obesity) (HCC) - ICD9: 278.01,ICD10: E66.0111. Preoperative cardiovascular evaluation prior to planned right kneereplacement. The patient's risk for the surgery as moderate. I wouldplace her risk in the 5-10% range. No further workup is necessary priorto that procedure.12. Nonobstructive coronary artery disease by multiple cardiaccatheterizations. 13. Lower extremity cramping at night. Patient worried abouthypokalemia.PLAN:Co ntinue current medical therapy.Basic metabolic profile to evaluate renal function and potassium while onupper dose lisinopril.We have had a very long discussion regarding significant changes in thepatient's diet in an effort to help her lose weight. Weight loss maydefinitely help her symptoms. I have suggested the [place] diet. Keira also discussed with her a pre-diabetic diet.Regular aerobic activity as able. We have discussed that this may be somesimple arm exercises while she is seated.Considered a referral to Dr. Guevara for evaluation of possible lowerextremity venous insufficiency or even lymphedema.Discussed a weight loss of 5-10 pounds over the next 3 months.Patient will follow-up with me in 1 month or sooner if necessary.A copy of this note will be provided to the requesting physician by [facility] or to the requesting physician via U.S. Mail.This document was generated utilizing [employer]. I have reviewedand verified that the contents of the document are accurate with theexception of minor grammatical, spelling and punctuation errors.CONTACT INFORMATION:Thank you for allowing us to participate in the care of this very pleasantpatient. Please free to contact us if we can be of any furtherassistance.Maria A Ann MD, [facility] and [facility] of Cardiovascular MedicineSelect Medical [facility] and Vascular InstituteRoberta Ville [address], [place] [address]Gscsix: [phone] [facility] CNOVon 01-04-2018 CNOV Office Visit (CARDFT) MILLIE GRAHAM ([id number]) 1955 [facility] Department01/04/18 12:30 PM ITALO ANN During your visit today, we recorded the following information about you: Pulse Respiration Blood pressure Weight 57/minute 18/minute 165/72 117.9 kg Height 1.6 Cece Ann MD 01/04/2018 12:56 PM [facility] and [facility] and Mechelle Mariscal Department of Cardiovascular MedicineOUTPATIENT VISIT DATE 01/04/18OUTPATIENT VISIT TYPEESTABLISHEDPRIMARY CARE PHYSICIAN:Conrad Sosa, DO[address] [facility] [id number]: [phone]: [phone] COMPLAINT:Patient presents with:Follow UpHISTORY OF PRESENT ILLNESS:Castillo Graham is a 61 year old female with a complex past medical history ofchronic diastolic heart failure, mild nonobstructive coronary artery disease,possible secundum type atrial septal defect, essential hypertension, pulmonaryhypertension, obstructive sleep apnea intolerant of face mask, gastroesophagealreflux disease, fibromyalgia and either reactive or restrictive lung disease.06/30/2017The patient presents today as a new consult for weight gain and swelling. Shehad previously been evaluated and under the care of Dr. Schilling of [facility]. Danika had multiple procedures performed which are detailed below. The patientrelates being on Lasix in the past for her lower extremity edema. Apparentlythe doses were gradually increased due to lack of response. Eventually thepatient developed significant renal insufficiency and the Lasix had to bedecreased or stopped. The patient states that she had terrible cramping withthe doses of Lasix. She states she was unable to continue taking it. She isnow not currently on any diuretic therapy. She believes the swelling hasworsened in her lower extremities all the way up her legs and into her abdomen. She has gained approximately 11 pounds since February of this year. She does statethat she was taking eitt-dpw-[id number] diet pills until recently. They were notworking. The patient has chronic complaints of dyspnea and dyspnea onexertion. She has been treated with lisinopril for her blood pressure. TheLasix was used to try to decrease her edema but was not successful. Thepatient and her son seem frustrated [facility]. By my review of the testing it seems the previouscardiologist was going by the guidelines with continued reasonable testing inan effort to try to help the patient's situation. She and her son seems veryupset with the lack of progress.07/21/2017The patient presents today for a 2-3 week visit. I have reviewed her previoustesting and it is documented below. The results from a sleep study in May2017 shows mild obstructive sleep apnea. It was recommended that she betitrated on CPAP. The patient states that her home equipment is to bedelivered. She continues to have swelling. She continues to have dyspnea onexertion. It has not worsened since her previous visit. We have reviewed hermedications again today. She has been on Celebrex for quite some time and thiscould certainly cause fluid overload. It is not clear what the exact etiologyof her continued symptoms are. It is most likely that his multi-factorial.The patient is also facing a right knee replacement in the near future. Shedoes not have significant coronary artery disease.01/04/2018The patient presents today for a roughly 6 month follow-up. The patient feelsabout the same as she did before. She stopped her Celebrex and had may be aslight improvement in her swelling. Unfortunately she still has some swellingin her knees and thighs bilaterally. She has been unable to tolerate diureticsin the past. She has had multiple invasive evaluations. Her son states thatarleth truly is not active at home at all. She may sit in her chair for -21 hours every day. She states that it's because of her knee pain that sheis unable to get up and move around. We have suggested that she needs to getup and move some. She also needs to make changes in her diet. The patientdoes complain of a sensation of her heartbeat in her back that radiates aroundto her chest at times. This does not cause any syncopal or near syncopalepisodes. It is a vague sensation.PAST MEDICAL HISTORYDiagnosis Date- Anxiety- ASD (atrial septal defect)- Asthma- CAD (coronary artery disease)- CHF (congestive heart failure) ([facility])- DM (diabetes mellitus) ([facility])- Fibromyalgia- GERD (gastroesophageal reflux disease)- HTN (hypertension)- OA (osteoarthritis) of knee- JEREMY (obstructive sleep apnea)- Pulmonary HTN- Restrictive lung disease- Vitamin D deficiencyPAST SURGICAL HISTORYProcedure Laterality Date- APPENDECTOMY HX- CARDIAC CATH 02/2013 Mild CAD / Pulm HTN- CARDIAC CATH 03/05/2017 Normal- COLONOSCOPY 02/2013- ECHO 05/2009 EF 30% LVH- EGD 02/2013- FOOT SURGERY HX- GASTRIC BYPASS HX- PAST SURGICAL HISTORY OF - TONSILLECTOMY HXSocial HistorySubstance Use Topics- Smoking status: Passive Smoke Exposure - Never Smoker Types: Cigarettes- Smokeless tobacco: Never Used- Alcohol use NoFAMILY HISTORYProblem Relation Age of Onset- Adopted: Yes- Family history unknown: YesALLERGIES:ALLERGIESAl lergen Reactions- Latex Rash- Penicillin Rash- Sulfa (Sulfonamide * RashMEDICATIONS:pantopra zole (PROTONIX) 40 mg injection Inject intravenously DAILY (6 AM).hydrOXYzine HCl (ATARAX) 10 mg tablet Take by mouth three times daily asneeded.temazepam (RESTORIL) 15 mg cap Take by mouth at bedtime as needed.rOPINIRole (REQUIP) 0.5 mg tablet Take 0.5 mg by mouth daily at bedtime.CALCIUM POLYCARBOPHIL (FIBERCON ORAL) Take by mouth.lisinopril (ZESTRIL, PRINIVIL) 20 mg tablet Take by mouth once daily.tiZANidine HCl 4 mg capsule Take by mouth daily at bedtime.celecoxib (CELEBREX) 200 mg capsule Take by mouth twice daily.REVIEW OF SYSTEMS:A complete review of systems was obtained and is remarkable for that notedabove. The remaining systems are unremarkable.I personally interviewed, confirmed and edited the above information ifobtained by others.PHYSICAL EXAMINATION:BP 165/72 Pulse (!) 57 Resp 18 Ht 160 cm (5' 3ANDquot;) Wt 117.9 kg (260lb) SpO2 100% BMI 46.06 kg/f1Krhrssw: Well appearing, in no acute distress.Eyes: Conjunctiva normal, sclera normalNeck: No jugular venous distention, no palpable thyromegaly.Heart: Regular rhythm, S1, S2 normal, no S3, no S4. No murmur. No carotidbruits.Respirator y: Mildly decreased breath sounds bilaterally. Good respiratoryeffort.GI: Soft, nontender, bowel sounds normal, no palpable hepatosplenomegalyExtrem ities: Normal pulses in distal lower extremities. Moderate 2+ bilaterallower extremity edema, left greater than right. There is skin discoloration inthe right lower extremityNeuro: Alert, cooperative with no focal deficit.Psych: Pleasant and cooperative.Skin: No rashes or wounds.CARDIOVASCULAR MEDICINE TESTING:Echocardiograms: 11/28/2014 - a 2-D echocardiogram performed at the [facility] normal left ventricular systolic function with an ejection fraction of60%. There was no significant valvular disease identified. There was nocomment on diastolic function.02/24/2017 - [facility] normal to mildly reduced left ventricular systolic function withan ejection fraction of 45-50%. There was minimal concentric left ventricularhypertrophy present. There was evidence of grade 1 diastolic dysfunction.There was mild mitral regurgitation. No estimate a right ventricular systolicpressure was possible on this study.Stress Evaluations:02/26/2016 - [facility] Lexiscan [facility] a left ventricular ejection fraction of 50% with abnormal septal wallmotion. There was a small defect involving the inferior oh apical wall whichwas fixed. This was felt to likely represent artifact. There was no otherevidence of Lexiscan stress-induced ischemia.02/24/2017 - [facility] with an ejectionfraction of 48%. There was a moderate sized anterior septal defect which waspartially reversible noted. This was read as suggestive of possiblestress-induced ischemia.Cardiac Catheterizations: 004 - [facility]. There was moderately decreased leftventricular systolic function noted with an ejection fraction of 30%.Moderately elevated right heart pressures and a normal cardiac index werenoted. The patient was continued on Demadex, Diovan, around oh lactone, Coreg3.125 mg twice a day.06/12/2005 - a right and left heart catheterization was performed at [facility] revealing nonobstructive coronary artery disease,left ventricular ejection fraction of 50%, moderate pulmonary hypertension,severely elevated left ventricular end-diastolic pressure, normal cardiacoutput and normal cardiac index. The patient was started on Lasix 40 mg twicea day.02/14/2008 - a right and left heart catheterization was performed at [facility] revealing mild 3 vessel coronary arterydisease, mildly reduced left ventricular systolic function (no ejectionfraction noted on the report), mild mitral regurgitation, mildly elevated leftventricular end-diastolic pressure, mild pulmonary hypertension and a normalcardiac index. No changes were made to the medical regimen.02/28/2013 - a right and left heart catheterization performed at [facility] reveals mild 3 vessel coronary artery disease, mild pulmonaryhypertension, preserved cardiac index and no evidence of cardiac shunt. Thisstudy was performed due to an abnormal stress test and a suspected patentforamen ovale versus ASD on echocardiogram. Medical therapy was recommendedbut not detailed in the report.03/05/2017 - a right and left heart catheterization was performed at [facility] revealing nonobstructive coronary artery disease, mildlyreduced left ventricular systolic function by noninvasive imaging, moderatelyelevated right-sided heart pressures and mildly elevated pulmonary capillarywedge pressure, low normal cardiac output, low normal cardiac index andmoderate to severe systemic hypertension. Lasix 20 mg daily was re-added. Thepatient was continued on an angiotensin-converting enzyme inhibitor and a betablocker was recommended.Electrocardi ograms:05/16/2017 - a 12-lead electrocardiogram reveals normal sinus rhythm at 58 bpm. There is a left bundle branch block present.06/30/2017 - a 12-lead electrocardiogram reveals sinus bradycardia at 53 bpm.There is a left bundle branch block present.IMPRESSION:1. Dyspnea on exertion - ICD9: 786.09, ICD10: R06.09 (primary diagnosis),likely multi-factorial, worsened by underlying pulmonary disease, obstructivesleep apnea not treated, history of both systolic and diastolic heart failure,intolerant of diuretic therapy, gastroesophageal reflux disease and obesity.No significant pattern changer the past 6 months. Patient is very inactive at home.2. Edema, unspecified type - ICD9: 782.3, ICD10: R60.9, likely multi-factorialsimilar to problem #1. Persistent some degree. Slightly better withoutCelebrex. Patient inactive for large amounts of time.3. Chronic combined systolic and diastolic congestive heart failure (HCC) -ICD9: 428.42, 428.0, ICD10: I50.42, most recent echocardiogram with improvedsystolic function and grade 1 diastolic dysfunction. Currently only onlisinopril due to the patient not tolerating diuretic therapy. The patientstates that her previous physicians took her off of carvedilol. This was dueto low blood pressures. Diuretics in the past have not significantly improvedher lower extremity edema.4. Essential hypertension - ICD9: 401.9, ICD10: I10, blood pressure moderatelyelevated today.5. Pulmonary HTN (HCC) - ICD9: 416.8, ICD10: I27.2, diagnosed by multiplecardiac catheterizations in the past.6. JEREMY (obstructive sleep apnea) - ICD9: 327.23, ICD10: G47.33, not currentlytreated as the patient is intolerant of her mask.7. Gastroesophageal reflux disease, esophagitis presence not specified - ICD9:530.81, ICD10: K21.9, care per primary care team.8. Fibromyalgia - ICD9: 729.1, ICD10: M79.79. Restrictive lung disease - ICD9: 518.89, ICD10: J98.4, care per pulmonology.10. Obesity, Class III, BMI 40-49.9 (morbid obesity) (HCC) - ICD9: 278.01,ICD10: E66.0111. Preoperative cardiovascular evaluation prior to planned right kneereplacement. The patient's risk for the surgery as moderate. I would placeher risk in the 5-10% range. No further workup is necessary prior to thatprocedure.12. Nonobstructive coronary artery disease by multiple cardiaccatheterizations. PLAN:Continue current medical therapy.We have had a very long discussion regarding significant changes in thepatient's diet in an effort to help her lose weight. Weight loss maydefinitely help her symptoms. I have suggested the [place] diet. I havealso discussed with her a pre-diabetic diet.Regular aerobic activity as able. We have discussed that this may be somesimple arm exercises while she is seated.Considered a referral to Dr. Guevara for evaluation of possible lowerextremity venous insufficiency or even lymphedema.Discussed a weight loss of 5-10 pounds over the next 3 months.Patient will follow-up with me in 3 months or sooner if necessary.A copy of this note will be provided to the requesting physician by [facility] or to the requesting physician via U.S. Mail.This document was generated utilizing [employer] dictation. I have reviewed andverified that the contents of the document are accurate with the exception ofminor grammatical, spelling and punctuation errors.CONTACT INFORMATION:Thank you for allowing us to participate in the care of this very pleasantpatient. Please free to contact us if we can be of any further assistance.Italo Ann MD, [facility] and Mechelle DoddDepartment of Cardiovascular MedicineSelect Medical [facility]health [facility]rt and Vascular InstituteMichael Ville [id number] [facility].[place], [place] [address]Wxubzm: [phone] Referring Provider: CONRAD SOSA [[id number]]Allergies As of Date: 01/04/2018 Noted Allergy ReactionLATEX 06/30/2017 2 - RashPENICILLIN 06/30/2017 2 - RashSULFA (SULFONAMIDE ANTIBIOTICS) 06/30/2017 2 - RashDate Reviewed: 01/04/2018Reviewed by: Italo Ann - Fully AssessedReason for Visit: Follow Up [171]Primary Visit Diagnosis:Chronic combined systolic and diastolic congestive heart failure (HCC) [I50.42] Other Visit Diagnoses:Pulmonary HTN [I27.20] Essential hypertension [I10] Obesity, Class III, BMI >= 40 (morbid obesity) E66.01 [E66.01] JEREMY (obstructive sleep apnea) [G47.33] Gastroesophageal reflux disease, esophagitis presence not specified [K21.9] Fibromyalgia [M79.7] Restrictive lung disease [J98.4]Prescriptions as of 01/04/2018 Sig: PANTOPRAZOLE 80 MG BOLUS Inject intravenously DAILY (6* HYDROXYZINE HCL 10 MG TABLET Take by mouth three times da* TEMAZEPAM 15 MG CAPSULE Take by mouth at bedtime as * ROPINIROLE 0.5 MG TABLET Take 0.5 mg by mouth daily at* FIBERCON ORAL Take by mouth. LISINOPRIL 20 MG TABLET Take by mouth once daily. TIZANIDINE 4 MG CAPSULE Take by mouth daily at bedti* CELECOXIB 200 MG CAPSULE Take by mouth twice daily.Problem List As Of Date 01/04/2018 Noted Resolved Obesity, Class III, BMI >= 40 (morbid obesity) *INVALID FOR* Chronic combined systolic and diastolic congest*INVALID FOR* Pulmonary HTN (HCC) [I27.20] INVALID FOR* Essential hypertension [I10] INVALID FOR* JEREMY (obstructive sleep apnea) [G47.33] INVALID FOR* Gastroesophageal reflux disease [K21.9] INVALID FOR* Fibromyalgia [M79.7] INVALID FOR* Restrictive lung disease [J98.4] INVALID FOR*Medications Discontinued During This Encounter esomeprazole (NEXIUM) 40 mg capsule 01/04/2018 Class: Historical Med Route: ORAL Sig: Take by mouth DAILY (6 AM). Disc: Erroneous entry POTASSIUM CHLORIDE (KLOR-CON M20 ORA* 01/04/2018 Class: Historical Med Route: ORAL Sig: Take by mouth. Disc: Erroneous entryEncounter Number: [id number] Status:Closed by LUC ANN MD on 01/04/18 Normal [facility] PROGRESSon 01-04-2018 Protein mass conc HNO ID: [id number]: Italo FultonyService: (none)Author Type: PhysicianType: Progress NotesFiled: 01/04/2018 12:56 PMNote Text:Heart and Vascular [facility] Mechelle Dodd Department of Cardiovascular MedicineOUTPATIENT VISIT DATE 01/04/18OUTPATIENT VISIT TYPEESTABLATRIUM HEALTHPRENCOM[facility] PHYSICIAN:Conrad Sosa, [address] [place] [address]Oqmaf: [phone]: [phone] COMPLAINT:Patient presents with:Follow UpHISTORY OF PRESENT ILLNESS:Castillo Graham is a 61 year old female with a complex past medical history ofchronic diastolic heart failure, mild nonobstructive coronary arterydisease, possible secundum type atrial septal defect, essentialhypertension, pulmonary hypertension, obstructive sleep apnea intolerantof face mask, gastroesophageal reflux disease, fibromyalgia and eitherreactive or restrictive lung disease.06/30/2017The patient presents today as a new consult for weight gain and swelling.She had previously been evaluated and under the care of Dr. Schilling [facility]. She has had multiple procedures performed which are detailed below. The patient relates being on Lasix in the past for her lower extremityedema. Apparently the doses were gradually increased due to lack ofresponse. Eventually the patient developed significant renalinsufficiency and the Lasix had to be decreased or stopped. The patientstates that she had terrible cramping with the doses of Lasix. She statesshe was unable to continue taking it. She is now not currently on anydiuretic therapy. She believes the swelling has worsened in her lowerextremities all the way up her legs and into her abdomen. She has gainedapproximately 11 pounds since February of this year. She does state that shewas taking shgo-bbh-ycochzw diet pills until recently. They were notworking. The patient has chronic complaints of dyspnea and dyspnea onexertion. She has been treated with lisinopril for her blood pressure.The Lasix was used to try to decrease her edema but was not successful.The patient and her son seem frustrated with the care they were given bythe previous cardiology team. By my review of the testing it seems theprevious arts and humanities council director was going by the guidelines with continuedreasonable testing in an effort to try to help the patient's situation.She and her son seems very upset with the lack of progress.07/21/2017The patient presents today for a 2-3 week visit. I have reviewed herprevious testing and it is documented below. The results from a sleepstudy in May 2017 shows mild obstructive sleep apnea. It wasrecommended that she be titrated on CPAP. The patient states that herhome equipment is to be delivered. She continues to have swelling. Shecontinues to have dyspnea on exertion. It has not worsened since herprevious visit. We have reviewed her medications again today. She hasbeen on Celebrex for quite some time and this could certainly cause fluidoverload. It is not clear what the exact etiology of her continuedsymptoms are. It is most likely that his multi-factorial. The patient isalso facing a right knee replacement in the near future. She does nothave significant coronary artery disease.01/04/2018The patient presents today for a roughly 6 month follow-up. The patientfeels about the same as she did before. She stopped her Celebrex and hadmay be a slight improvement in her swelling. Unfortunately she still hassome swelling in her knees and thighs bilaterally. She has been unable totolerate diuretics in the past. She has had multiple invasiveevaluations. Her son states that she truly is not active at home at all.She may sit in her chair for roughly 10-12 hours every day. She statesthat it's because of her knee pain that she is unable to get up and movearound. We have suggested that she needs to get up and move some. Arlethalso needs to make changes in her diet. The patient does complain of asensation of her heartbeat in her back that radiates around to her chestat times. This does not cause any syncopal or near syncopal episodes. Itis a vague sensation.PAST MEDICAL HISTORYDiagnosis Date- Anxiety- ASD (atrial septal defect)- Asthma- CAD (coronary artery disease)- CHF (congestive heart failure) (HCC)- DM (diabetes mellitus) (HCC)- Fibromyalgia- GERD (gastroesophageal reflux disease)- HTN (hypertension)- OA (osteoarthritis) of knee- JEREMY (obstructive sleep apnea)- Pulmonary HTN- Restrictive lung disease- Vitamin D deficiencyPAST SURGICAL HISTORYProcedure Laterality Date- APPENDECTOMY HX- CARDIAC CATH 02/2013 Mild CAD / Pulm HTN- CARDIAC CATH 03/05/2017 Normal- COLONOSCOPY 02/2013- ECHO 05/2009 EF 30% LVH- EGD 02/2013- FOOT SURGERY HX- GASTRIC BYPASS HX- PAST SURGICAL HISTORY OF - TONSILLECTOMY HXSocial HistorySubstance Use Topics- Smoking status: Passive Smoke Exposure - Never Smoker Types: Cigarettes- Smokeless tobacco: Never Used- Alcohol use NoFAMILY HISTORYProblem Relation Age of Onset- Adopted: Yes- Family history unknown: YesALLERGIES:ALLERGIESAl lergen Reactions- Latex Rash- Penicillin Rash- Sulfa (Sulfonamide * RashMEDICATIONS:pantopra zole (PROTONIX) 40 mg injection Inject intravenously DAILY (6 AM).hydrOXYzine HCl (ATARAX) 10 mg tablet Take by mouth three times daily asneeded.temazepam (RESTORIL) 15 mg cap Take by mouth at bedtime as needed.rOPINIRole (REQUIP) 0.5 mg tablet Take 0.5 mg by mouth daily at bedtime.CALCIUM POLYCARBOPHIL (FIBERCON ORAL) Take by mouth.lisinopril (ZESTRIL, PRINIVIL) 20 mg tablet Take by mouth once daily.tiZANidine HCl 4 mg capsule Take by mouth daily at bedtime.celecoxib (CELEBREX) 200 mg capsule Take by mouth twice daily.REVIEW OF SYSTEMS:A complete review of systems was obtained and is remarkable for that notedabove. The remaining systems are unremarkable.I personally interviewed, confirmed and edited the above information ifobtained by others.PHYSICAL EXAMINATION:BP 165/72 Pulse (!) 57 Resp 18 Ht 160 cm (5' 3 ) Wt 117.9 kg (260lb) SpO2 100% BMI 46.06 kg/g9Cwgwmbf: Well appearing, in no acute distress.Eyes: Conjunctiva normal, sclera normalNeck: No jugular venous distention, no palpable thyromegaly.Heart: Regular rhythm, S1, S2 normal, no S3, no S4. No murmur. No carotidbruits.Respirator y: Mildly decreased breath sounds bilaterally. Good respiratoryeffort.GI: Soft, nontender, bowel sounds normal, no palpable hepatosplenomegalyExtrem ities: Normal pulses in distal lower extremities. Moderate 2+bilateral lower extremity edema, left greater than right. There is skindiscoloration in the right lower extremityNeuro: Alert, cooperative with no focal deficit.Psych: Pleasant and cooperative.Skin: No rashes or wounds.CARDIOVASCULAR MEDICINE TESTING:Echocardiograms: 11/28/2014 - [facility] with an ejectionfraction of 60%. There was no significant valvular disease identified.There was no comment on diastolic function.02/24/2017 - [facility] normal to mildly reduced left ventricular systolic functionwith an ejection fraction of 45-50%. There was minimal concentric leftventricular hypertrophy present. There was evidence of grade 1 diastolicdysfunction. There was mild mitral regurgitation. No estimate a rightventricular systolic pressure was possible on this study.Stress Evaluations:02/26/2016 - a Lexiscan nuclear stress evaluation at the [facility] revealed a left ventricular ejection fraction of 50% with abnormalseptal wall motion. There was a small defect involving the inferior ohapical wall which was fixed. This was felt to likely represent artifact.There was no other evidence of Lexiscan stress-induced ischemia.02/24/2017 - a Lexiscan nuclear stress evaluation at the [facility] revealed mildly diminished left ventricular systolic function withan ejection fraction of 48%. There was a moderate sized anterior septaldefect which was partially reversible noted. This was read as suggestiveof possible stress-induced ischemia.Cardiac Catheterizations: 004 - a cardiac catheterization performed at the [facility] revealed normal coronary arteries. There was moderately decreasedleft ventricular systolic function noted with an ejection fraction of 30%. Moderately elevated right heart pressures and a normal cardiac index werenoted. The patient was continued on Demadex, Diovan, around oh lactone,Coreg 3.125 mg twice a day.06/12/2005 - a right and left heart catheterization was performed at [facility] revealing nonobstructive coronary arterydisease, left ventricular ejection fraction of 50%, moderate pulmonaryhypertension, severely elevated left ventricular end-diastolic pressure,normal cardiac output and normal cardiac index. The patient was startedon Lasix 40 mg twice a day.02/14/2008 - a right and left heart catheterization was performed at [facility] revealing mild 3 vessel coronaryartery disease, mildly reduced left ventricular systolic function (noejection fraction noted on the report), mild mitral regurgitation, mildlyelevated left ventricular end-diastolic pressure, mild pulmonaryhypertension and a normal cardiac index. No changes were made to themedical regimen.02/28/2013 - a right and left heart catheterization performed at [facility] reveals mild 3 vessel coronary artery disease, mildpulmonary hypertension, preserved cardiac index and no evidence of cardiacshunt. This study was performed due to an abnormal stress test and asuspected patent foramen ovale versus ASD on echocardiogram. Medicaltherapy was recommended but not detailed in the report.03/05/2017 - a right and left heart catheterization was performed at [facility] revealing nonobstructive coronary artery disease,mildly reduced left ventricular systolic function by noninvasive imaging,moderately elevated right-sided heart pressures and mildly elevatedpulmonary capillary wedge pressure, low normal cardiac output, low normalcardiac index and moderate to severe systemic hypertension. Lasix 20 mgdaily was re-added. The patient was continued on anangiotensin-converting enzyme inhibitor and a beta lianna wasrecommended.Electroca rdiograms:05/16/2017 - a 12-lead electrocardiogram reveals normal sinus rhythm at 58bpm. There is a left bundle branch block present.06/30/2017 - a 12-lead electrocardiogram reveals sinus bradycardia at 53bpm. There is a left bundle branch block present.IMPRESSION:1. Dyspnea on exertion - ICD9: 786.09, ICD10: R06.09 (primary diagnosis),likely multi-factorial, worsened by underlying pulmonary disease,obstructive sleep apnea not treated, history of both systolic anddiastolic heart failure, intolerant of diuretic therapy, gastroesophagealreflux disease and obesity. No significant pattern changer the past 6 months. Patient is very inactive at home.2. Edema, unspecified type - ICD9: 782.3, ICD10: R60.9, likelymulti-factorial similar to problem #1. Persistent some degree. Slightlybetter without Celebrex. Patient inactive for large amounts of time.3. Chronic combined systolic and diastolic congestive heart failure (HCC)- ICD9: 428.42, 428.0, ICD10: I50.42, most recent echocardiogram withimproved systolic function and grade 1 diastolic dysfunction. Currentlyonly on lisinopril due to the patient not tolerating diuretic therapy.The patient states that her previous physicians took her off ofcarvedilol. This was due to low blood pressures. Diuretics in the pasthave not significantly improved her lower extremity edema.4. Essential hypertension - ICD9: 401.9, ICD10: I10, blood pressuremoderately elevated today.5. Pulmonary HTN (HCC) - ICD9: 416.8, ICD10: I27.2, diagnosed by multiplecardiac catheterizations in the past.6. JEREMY (obstructive sleep apnea) - ICD9: 327.23, ICD10: G47.33, notcurrently treated as the patient is intolerant of her mask.7. Gastroesophageal reflux disease, esophagitis presence not specified -ICD9: 530.81, ICD10: K21.9, care per primary care team.8. Fibromyalgia - ICD9: 729.1, ICD10: M79.79. Restrictive lung disease - ICD9: 518.89, ICD10: J98.4, care perpulmonology.10. Obesity, Class III, BMI 40-49.9 (morbid obesity) (HCC) - ICD9: 278.01,ICD10: E66.0111. Preoperative cardiovascular evaluation prior to planned right kneereplacement. The patient's risk for the surgery as moderate. I wouldplace her risk in the 5-10% range. No further workup is necessary priorto that procedure.12. Nonobstructive coronary artery disease by multiple cardiaccatheterizations. PLAN:Continue current medical therapy.We have had a very long discussion regarding significant changes in thepatient's diet in an effort to help her lose weight. Weight loss maydefinitely help her symptoms. I have suggested the [employer] diet. Keira also discussed with her a pre-diabetic diet.Regular aerobic activity as able. We have discussed that this may be somesimple arm exercises while she is seated.Considered a referral to Dr. Guevara for evaluation of possible lowerextremity venous insufficiency or even lymphedema.Discussed a weight loss of 5-10 pounds over the next 3 months.Patient will follow-up with me in 3 months or sooner if necessary.A copy of this note will be provided to the requesting physician by [facility] or to the requesting physician via U.S. Mail.This document was generated utilizing [employer] dictation. I have reviewedand verified that the contents of the document are accurate with theexception of minor grammatical, spelling and punctuation errors.CONTACT INFORMATION:Thank you for allowing us to participate in the care of this very pleasantpatient. Please free to contact us if we can be of any furtherassistance.Maria A Ann MD, [facility] of Cardiovascular MedicineSelect Medical [facility] and [facility] Institute[address] [address]Thxxhb: [phone] Normal [facility] C-Reactive Proteinon 018 CRP mass conc 1.1 mg/dL High <1.0 [facility] Comment on above: Performed By: #### 1 988-5 ####[address] CBC with Differentialon Basophils Auto #/vol (Bld) 0.10 thou/mcL Normal 0.00-0.20 [facility] Comment on above: Performed By: #### 6 9742-5 ####[address]#### [address]-0 ####[address] Basophils/100 WBC Auto (Bld) 0.9 % Normal 0.0-2.0 [facility] Comment on above: Performed By: #### 6 9742-5 ####[address]#### [address]-2 ####[address] Eosinophils Auto #/vol (Bld) 0.20 thou/mcL Normal 0.00-0.70 [facility] Comment on above: Performed By: #### 6 9742-5 ####[address]#### [address]-5 ####[facility], [address] [place] [address]. Eosinophils/100 WBC Auto (Bld) 3.1 % Normal 0.0-7.0 [facility] Comment on above: Performed By: #### 6 9742-5 ####[facility]#### [address]-2 ####[facility], [address] [place] [address]. Erythrocyte distribution width Entitic volume (RBC) 16.3 % High 11.0-14.8 [facility] Comment on above: Performed By: #### 6 9742-5 ####[facility]#### 88[address]-0 ####[facility], [address] [place] [address]. Hematocrit Auto Volume Fraction (Bld) 37.5 % Normal 35.0-45.0 [facility] Comment on above: Performed By: #### 6 9742-5 ####[address]#### 268[address]-3 ####[facility], [address] [place] [address]. Hemoglobin mass conc (Bld) 12.2 g/dL Normal 12.0-16.0 [facility] Comment on above: Performed By: #### 6 9742-5 ####[facility]#### [address]58[address]-0 ####[facility], [address] [place] [address]. Lymphocytes Auto #/vol (Bld) 1.40 thou/mcL Normal 1.00-4.80 [facility] Comment on above: Performed By: #### 6 9742-5 ####[facility]#### [address]14[address]-6 ####[facility], [address] [place] [address]. Lymphocytes/100 WBC Auto (Bld) 19.5 % Low 22.0-44.0 [facility] Comment on above: Performed By: #### 6 9742-5 ####[address]#### [address]875-5 ####[facility], [address] [place] [address]. MCH Auto Entitic mass (RBC) 25.2 Picograms Low 27.0-34.0 [facility] Comment on above: Performed By: #### 6 9742-5 ####[address]#### [address]05[address]-8 ####[facility], [address] [place] [address]. MCHC Auto mass conc (RBC) 32.6 g/dL Normal 32.0-36.0 [facility] Comment on above: Performed By: #### 6 9742-5 ####[address]#### 21630-4 ####[facility], [address] [place] [address]. MCV Auto Entitic volume (RBC) 77.2 fL Low 80.0-97.0 [facility] Comment on above: Performed By: #### 6 9742-5 ####[address]#### 327[address]-4 ####[facility], [address] [place] [address]. Monocytes Auto #/vol (Bld) 0.50 thou/mcL Normal 0.00-0.90 [facility] Comment on above: Performed By: #### 6 9742-5 ####[address]#### [address]25[address]-6 ####[facility], [address] [place] [address]. Monocytes/100 WBC Auto (Bld) 6.7 % Normal 0.0-12.0 [facility] Comment on above: Performed By: #### 6 9742-5 ####[facility]#### [address]-6 ####[facility], [address] [place] [address]. Neutrophils Auto #/vol (Bld) 5.00 thou/mcL Normal 1.80-7.70 [facility] Comment on above: Performed By: #### 6 9742-5 ####[address]#### 74141-4 ####[facility], [address] [place] [address]. Neutrophils/100 WBC Auto (Bld) 69.8 % Normal 40.0-70.0 [facility] Comment on above: Performed By: #### 6 9742-5 ####[address]#### 26948-6 ####[facility], [address] [place] [address]. Platelet mean volume Entitic volume (Bld) 8.4 FL Normal 6.2-12.1 [facility] Comment on above: Performed By: #### 6 9742-5 ####[address]#### 82057-9 ####[facility], [address] [place] [address]. Platelets Auto #/vol (Bld) 278 thou/mcL Normal 142-424 [facility] Comment on above: Performed By: #### 6 9742-5 ####[address]#### [address]63-2 ####[facility], [address] [place] [address]. RBC Auto #/vol (Bld) 4.86 million/mcL Normal 3.80-5.10 [facility] Comment on above: Performed By: #### 6 9742-5 ####[address]#### [address]-6 ####[facility], [address], [place]. WBC Auto #/vol (Bld) 7.2 thou/mcL Normal 4.6-10.2 [facility] Comment on above: Performed By: #### 6 9742-5 ####[facility] [address] [place], [place]#### [address]-6 ####[facility], [address], [place]. Sedimentation Rate rbcon ESR Velocity (Bld) 32 mm/h High 0-20 [facility] Comment on above: Performed By: #### 6 9742-5 ####[facility] [address] [place], [place]#### [address]61-4 ####[facility], [address] [place] [address]. XR Knee 4+ Views RTon 2017 XR Knee - right 4 views EXAMINATION TYPE : XR Knee 4+ Views RT DATE OF EXAM : 12/21/2017 11:15 AMHISTORY: pain in the knee,COMPARISON: NONEFINDINGS: Standing AP, PA, lateral and sunrise patella view submitted of the RIGHT knee. AP imaging demonstrates postoperative changes bilaterally the knees status post total knee replacement. The RIGHT knee prostheses appear properly seated [place] bone without fracture. Relationship within normal limits. No convincing plain from evidence of an effusion. Bone density appears mildly diminished but without acute or dominant focal abnormality.Limited imaging of the LEFT knee is notable only for postoperative changes without opposed acute finding.IMPRESSION: No acute findings.[facility] thanks you for the opportunity to care for your patient. Workstation ID: [id number] - [id number] FINAL REPORT Dictated By: Conrad Crain MD 12/21/2017 13:24Assigned Physician: Conrad Crain MD and Electronically Signed By: Conrad Crain MD 12/21/2017 13:26Transcribed by: BARRON 12/21/2017 13:24Technologist: MADELINE Normal [facility] CNOVon 07-21-2017 CNOV Office Visit (CARDFT) MILLIE GRAHAM ([id number]) 1955 [facility] Time Provider Rcibjdcbha41/3/17 1:00 PM ITALO ANN During your visit today, we recorded the following information about you: Pulse Respiration Blood pressure Weight 86/minute 18/minute 146/57 127 kg Height 1.6 Cece Ann MD 07/21/2017 1:57 PM [facility] InstituteG[facility] and Mechelle Mariscal Department of Cardiovascular MedicineOUTPATIENT VISIT DATE 07/21/17OUTPATIENT VISIT TYPEESTABLISHEDPRIMARY CARE PHYSICIAN:Conrad Sosa DO[address] [facility] [address]Ceeql: [phone]: [phone] COMPLAINT:Patient presents with:Leg EdemaShortness of BreathHISTORY OF PRESENT ILLNESS:Castillo Graham is a 61 year old female with a complex past medical history ofchronic diastolic heart failure, mild nonobstructive coronary artery disease,possible secundum type atrial septal defect, essential hypertension, pulmonaryhypertension, obstructive sleep apnea intolerant of face mask, gastroesophagealreflux disease, fibromyalgia and either reactive or restrictive lung disease.06/30/2017The patient presents today as a new consult for weight gain and swelling. Shehad previously been evaluated and under the care of Dr. Schilling of [facility]. Femis had multiple procedures performed which are detailed below. The patientrelates being on Lasix in the past for her lower extremity edema. Apparentlythe doses were gradually increased due to lack of response. Eventually thepatient developed significant renal insufficiency and the Lasix had to bedecreased or stopped. The patient states that she had terrible cramping withthe doses of Lasix. She states she was unable to continue taking it. She isnow not currently on any diuretic therapy. She believes the swelling hasworsened in her lower extremities all the way up her legs and into her abdomen. She has gained approximately 11 pounds since February of this year. She does statethat she was taking anxf-aeh-yxewyxe diet pills until recently. They were notworking. The patient has chronic complaints of dyspnea and dyspnea onexertion. She has been treated with lisinopril for her blood pressure. TheLasix was used to try to decrease her edema but was not successful. Thepatient and her son seem frustrated with the care they were given by theprevious cardiology team. By my review of the testing it seems the previouscardiologist was going by the guidelines with continued reasonable testing inan effort to try to help the patient's situation. She and her son seems veryupset with the lack of progress.07/21/2017The patient presents today for a 2-3 week visit. I have reviewed her previoustesting and it is documented below. The results from a sleep study in May2017 shows mild obstructive sleep apnea. It was recommended that she betitrated on CPAP. The patient states that her home equipment is to bedelivered. She continues to have swelling. She continues to have dyspnea onexertion. It has not worsened since her previous visit. We have reviewed hermedications again today. She has been on Celebrex for quite some time and thiscould certainly cause fluid overload. It is not clear what the exact etiologyof her continued symptoms are. It is most likely that his multi-factorial.The patient is also facing a right knee replacement in the near future. Shedoes not have significant coronary artery disease.PAST MEDICAL HISTORYDiagnosis Date- Anxiety- ASD (atrial septal defect)- Asthma- CAD (coronary artery disease)- CHF (congestive heart failure) (HCC)- DM (diabetes mellitus) (HCC)- Fibromyalgia- GERD (gastroesophageal reflux disease)- HTN (hypertension)- OA (osteoarthritis) of knee- JEREMY (obstructive sleep apnea)- Pulmonary HTN- Restrictive lung disease- Vitamin D deficiencyPAST SURGICAL HISTORYProcedure Laterality Date- APPENDECTOMY HX- CARDIAC CATH 02/2013 Mild CAD / Pulm HTN- CARDIAC CATH 03/05/2017 Normal- COLONOSCOPY 02/2013- ECHO 05/2009 EF 30% LVH- EGD 02/2013- FOOT SURGERY HX- GASTRIC BYPASS HX- PAST SURGICAL HISTORY OF - TONSILLECTOMY HXSocial HistorySubstance Use Topics- Smoking status: Passive Smoke Exposure - Never Smoker Types: Cigarettes- Smokeless tobacco: Not on file- Alcohol use NoFAMILY HISTORYProblem Relation Age of Onset- Adopted: Yes- Family history unknown: YesALLERGIES:ALLERGIESAl lergen Reactions- Latex Rash- Penicillin Rash- Sulfa (Sulfonamide * RashMEDICATIONS:esomepra zole (NEXIUM) 40 mg capsule Take by mouth DAILY (6 AM).hydrOXYzine HCl (ATARAX) 10 mg tablet Take by mouth three times daily asneeded.celecoxib (CELEBREX) 200 mg capsule Take by mouth twice daily.temazepam (RESTORIL) 15 mg cap Take by mouth at bedtime as needed.POTASSIUM CHLORIDE (KLOR-CON M20 ORAL) Take by mouth.rOPINIRole (REQUIP) 0.5 mg tablet Take 0.5 mg by mouth daily at bedtime.CALCIUM POLYCARBOPHIL (FIBERCON ORAL) Take by mouth.lisinopril (ZESTRIL, PRINIVIL) 20 mg tablet Take by mouth once daily.tiZANidine HCl 4 mg capsule Take by mouth daily at bedtime.REVIEW OF SYSTEMS:A complete review of systems was obtained and is remarkable for that notedabove. The remaining systems are unremarkable.I personally interviewed, confirmed and edited the above information ifobtained by others.PHYSICAL EXAMINATION:BP 146/57 Pulse 86 Resp 18 Ht 160 cm (5' 3ANDquot;) Wt 127 kg (280 lb) SpO2 96% BMI 49.6 kg/w8Avtmvur: Well appearing, in no acute distress.Eyes: Conjunctiva normal, sclera normalNeck: No jugular venous distention, no palpable thyromegaly.Heart: Regular rhythm, S1, S2 normal, no S3, no S4. No murmur. No carotidbruits.Respirator y: Mildly decreased breath sounds bilaterally. Good respiratoryeffort.GI: Soft, nontender, bowel sounds normal, no palpable hepatosplenomegalyExtrem ities: Normal pulses in distal lower extremities. Moderate 2+ bilaterallower extremity edema, left greater than right. There is skin discoloration inthe right lower extremityNeuro: Alert, cooperative with no focal deficit.Psych: Pleasant and cooperative.Skin: No rashes or wounds.CARDIOVASCULAR MEDICINE TESTING:Echocardiograms: 11/28/2014 - [facility] [place] with an ejection fraction of60%. There was no significant valvular disease identified. There was nocomment on diastolic function.02/24/2017 - a [facility] [place] [facility] normal to mildly reduced left ventricular systolic function withan ejection fraction of 45-50%. There was minimal concentric left ventricularhypertrophy present. There was evidence of grade 1 diastolic dysfunction.There was mild mitral regurgitation. No estimate a right ventricular systolicpressure was possible on this study.Stress Evaluations:02/26/2016 - [facility] Lexiscan nuclear stress [facility] [place] [facility] left ventricular ejection fraction of 50% with abnormal septal wallmotion. There was a small defect involving the inferior oh apical wall whichwas fixed. This was felt to likely represent artifact. There was no otherevidence of Lexiscan stress-induced ischemia.02/24/2017 - [facility] left ventricular systolic function with an ejectionfraction of 48%. There was a moderate sized anterior septal defect which waspartially reversible noted. This was read as suggestive of possiblestress-induced ischemia.Cardiac Catheterizations: 004 - [facility]. There was moderately decreased leftventricular systolic function noted with an ejection fraction of 30%.Moderately elevated right heart pressures and a normal cardiac index werenoted. The patient was continued on Demadex, Diovan, around oh lactone, Coreg3.125 mg twice a day.06/12/2005 - a right and left heart catheterization was performed at [facility] revealing nonobstructive coronary artery disease,left ventricular ejection fraction of 50%, moderate pulmonary hypertension,severely elevated left ventricular end-diastolic pressure, normal cardiacoutput and normal cardiac index. The patient was started on Lasix 40 mg twicea day.02/14/2008 - a right and left heart catheterization was performed at [facility] revealing mild 3 vessel coronary arterydisease, mildly reduced left ventricular systolic function (no ejectionfraction noted on the report), mild mitral regurgitation, mildly elevated leftventricular end-diastolic pressure, mild pulmonary hypertension and a normalcardiac index. No changes were made to the medical regimen.02/28/2013 - a right and left heart catheterization performed at [facility] reveals mild 3 vessel coronary artery disease, mild pulmonaryhypertension, preserved cardiac index and no evidence of cardiac shunt. Thisstudy was performed due to an abnormal stress test and a suspected patentforamen ovale versus ASD on echocardiogram. Medical therapy was recommendedbut not detailed in the report.03/05/2017 - a right and left heart catheterization was performed at [facility] revealing nonobstructive coronary artery disease, mildlyreduced left ventricular systolic function by noninvasive imaging, moderatelyelevated right-sided heart pressures and mildly elevated pulmonary capillarywedge pressure, low normal cardiac output, low normal cardiac index andmoderate to severe systemic hypertension. Lasix 20 mg daily was re-added. Thepatient was continued on an angiotensin-converting enzyme inhibitor and a betablocker was recommended.Electrocardi ograms:05/16/2017 - a 12-lead electrocardiogram reveals normal sinus rhythm at 58 bpm. There is a left bundle branch block present.06/30/2017 - a 12-lead electrocardiogram reveals sinus bradycardia at 53 bpm.There is a left bundle branch block present.IMPRESSION:1. Dyspnea on exertion - ICD9: 786.09, ICD10: R06.09 (primary diagnosis),likely multi-factorial, worsened by underlying pulmonary disease, obstructivesleep apnea not treated, history of both systolic and diastolic heart failure,intolerant of diuretic therapy, gastroesophageal reflux disease and obesity.No significant pattern changer the past 2-3 weeks.2. Edema, unspecified type - ICD9: 782.3, ICD10: R60.9, likely multi-factorialsimilar to problem #1. Left lower extremity more involved than right lowerextremity.3. Chronic combined systolic and diastolic congestive heart failure (HCC) -ICD9: 428.42, 428.0, ICD10: I50.42, most recent echocardiogram with improvedsystolic function and grade 1 diastolic dysfunction. Currently only onlisinopril due to the patient not tolerating diuretic therapy. The patientstates today that her previous physicians took her off of carvedilol. This wasdue to low blood pressures.4. Essential hypertension - ICD9: 401.9, ICD10: I10, blood pressure uppernormal today.5. Pulmonary HTN (HCC) - ICD9: 416.8, ICD10: I27.2, diagnosed by multiplecardiac catheterizations in the past.6. JEREMY (obstructive sleep apnea) - ICD9: 327.23, ICD10: G47.33, not currentlytreated as the patient is intolerant of her mask. She is apparently scheduledfor a sleep study soon.7. Gastroesophageal reflux disease, esophagitis presence not specified - ICD9:530.81, ICD10: K21.9, care per primary care team.8. Fibromyalgia - ICD9: 729.1, ICD10: M79.79. Restrictive lung disease - ICD9: 518.89, ICD10: J98.4, care per pulmonology.10. Obesity, Class III, BMI 40-49.9 (morbid obesity) ([facility]) - ICD9: 278.01,ICD10: E66.0111. Preoperative cardiovascular evaluation prior to planned right kneereplacement. The patient's risk for the surgery as moderate. I would placeher risk in the 5-10% range. No further workup is necessary prior to thatprocedure.12. Nonobstructive coronary artery disease by multiple cardiaccatheterizations. PLAN:Discontinue Celebrex for one month..Patient will be starting CPAP at home in the near future.Monitor her lower extremity swelling, if this improves then Celebrex may beplaying a role in her edema.Low-sodium diet.Monitor blood pressure at home.Continuous effort at weight loss.The patient will return to the office in one month to discuss any change in heredema after stopping Celebrex. Hopefully she will have started her CPAP at thesame time.A copy of this note will be provided to the requesting physician by [facility] or to the requesting physician via U.S. Mail.This document was generated utilizing [employer]. I have reviewed andverified that the contents of the document are accurate with the exception ofminor grammatical, spelling and punctuation errors.CONTACT INFORMATION:Thank you for allowing us to participate in the care of this very pleasantpatient. Please free to contact us if we can be of any further assistance.Italo Ann MD, FACTITAbaptist health la grangeyovani and Mechelle TomsichDepartment of Cardiovascular MedicineHeart and Vascular InstituteOhiohealth[address], [place] [address]Vcisku: [phone] Referring Provider: CONRAD SOSA [[id number]]Allergies As of Date: 07/21/2017 Noted Allergy ReactionLATEX 06/30/2017 2 - RashPENICILLIN 06/30/2017 2 - RashSULFA (SULFONAMIDE ANTIBIOTICS) 06/30/2017 2 - RashDate Reviewed: 07/21/2017Reviewed by: Italo Ann - Fully AssessedReason for Visit: Leg Edema [769] Shortness of Breath [227]Primary Visit Diagnosis:Chronic combined systolic and diastolic congestive heart failure (HCC) [I50.42] Other Visit Diagnoses:Pulmonary HTN [I27.20] Essential hypertension [I10] JEREMY (obstructive sleep apnea) [G47.33]Prescriptions as of 07/21/2017 Sig: ESOMEPRAZOLE MAGNESIUM 40 MG * Take by mouth DAILY (6 AM). HYDROXYZINE HCL 10 MG TABLET Take by mouth three times da* CELECOXIB 200 MG CAPSULE Take by mouth twice daily. TEMAZEPAM 15 MG CAPSULE Take by mouth at bedtime as * KLOR-CON M20 ORAL Take by mouth. ROPINIROLE 0.5 MG TABLET Take 0.5 mg by mouth daily at* FIBERCON ORAL Take by mouth. LISINOPRIL 20 MG TABLET Take by mouth once daily. TIZANIDINE 4 MG CAPSULE Take by mouth daily at bedti*Problem List As Of Date 07/21/2017 Noted Resolved Obesity, Class III, BMI >= 40 (morbid obesity) *INVALID FOR* Chronic combined systolic and diastolic congest*INVALID FOR* Pulmonary HTN (HCC) [I27.20] INVALID FOR* Essential hypertension [I10] INVALID FOR* JEREMY (obstructive sleep apnea) [G47.33] INVALID FOR* Gastroesophageal reflux disease [K21.9] INVALID FOR* Fibromyalgia [M79.7] INVALID FOR* Restrictive lung disease [J98.4] INVALID FOR* Status:Closed by LUC ANN MD on 07/21/17 Normal [facility] 07-21-2017 Protein mass conc HNO ID: [id number]: Italo Valladares HersheyService: (none)Author Type: PhysicianType: Progress NotesFiled: 07/21/2017 1:57 PMNote Text:[facility] Mechelle Dodd Department of Cardiovascular MedicineOUTPATIENT VISIT DATE 07/21/17OUTPATIENT VISIT TYPEESTABLISHEDPRIMARY CARE PHYSICIAN:Conrad Sosa, DO[address] [place] [address]Xroke: [phone]: [phone] COMPLAINT:Patient presents with:Leg EdemaShortness of BreathHISTORY OF PRESENT ILLNESS:Castillo Graham is a 61 year old female with a complex past medical history ofchronic diastolic heart failure, mild nonobstructive coronary arterydisease, possible secundum type atrial septal defect, essentialhypertension, pulmonary hypertension, obstructive sleep apnea intolerantof face mask, gastroesophageal reflux disease, fibromyalgia and eitherreactive or restrictive lung disease.06/30/2017The patient presents today as a new consult for weight gain and swelling.She had previously been evaluated and under the care of Dr. Schilling [facility]. She has had multiple procedures performed which are detailed below. The patient relates being on Lasix in the past for her lower extremityedema. Apparently the doses were gradually increased due to lack ofresponse. Eventually the patient developed significant renalinsufficiency and the Lasix had to be decreased or stopped. The patientstates that she had terrible cramping with the doses of Lasix. She statesshe was unable to continue taking it. She is now not currently on anydiuretic therapy. She believes the swelling has worsened in her lowerextremities all the way up her legs and into her abdomen. She has gainedapproximately 11 pounds since February of this year. She does state that shewas taking qgap-tis-bqgzprs diet pills until recently. They were notworking. The patient has chronic complaints of dyspnea and dyspnea onexertion. She has been treated with lisinopril for her blood pressure.The Lasix was used to try to decrease her edema but was not successful.The patient and her son seem frustrated with the care they were given bythe previous cardiology team. By my review of the testing it seems theprevious arts and humanities council director was going by the guidelines with continuedreasonable testing in an effort to try to help the patient's situation.She and her son seems very upset with the lack of progress.07/21/2017The patient presents today for a 2-3 week visit. I have reviewed herprevious testing and it is documented below. The results from a sleepstudy in May 2017 shows mild obstructive sleep apnea. It wasrecommended that she be titrated on CPAP. The patient states that herhome equipment is to be delivered. She continues to have swelling. Shecontinues to have dyspnea on exertion. It has not worsened since herprevious visit. We have reviewed her medications again today. She hasbeen on Celebrex for quite some time and this could certainly cause fluidoverload. It is not clear what the exact etiology of her continuedsymptoms are. It is most likely that his multi-factorial. The patient isalso facing a right knee replacement in the near future. She does nothave significant coronary artery disease.PAST MEDICAL HISTORYDiagnosis Date- Anxiety- ASD (atrial septal defect)- Asthma- CAD (coronary artery disease)- CHF (congestive heart failure) ([facility])- DM (diabetes mellitus) ([facility])- Fibromyalgia- GERD (gastroesophageal reflux disease)- HTN (hypertension)- OA (osteoarthritis) of knee- JEREMY (obstructive sleep apnea)- Pulmonary HTN- Restrictive lung disease- Vitamin D deficiencyPAST SURGICAL HISTORYProcedure Laterality Date- APPENDECTOMY HX- CARDIAC CATH 02/2013 Mild CAD / Pulm HTN- CARDIAC CATH 03/05/2017 Normal- COLONOSCOPY 02/2013- ECHO 05/2009 EF 30% LVH- EGD 02/2013- FOOT SURGERY HX- GASTRIC BYPASS HX- PAST SURGICAL HISTORY OF - TONSILLECTOMY HXSocial HistorySubstance Use Topics- Smoking status: Passive Smoke Exposure - Never Smoker Types: Cigarettes- Smokeless tobacco: Not on file- Alcohol use NoFAMILY HISTORYProblem Relation Age of Onset- Adopted: Yes- Family history unknown: YesALLERGIES:ALLERGIESAl lergen Reactions- Latex Rash- Penicillin Rash- Sulfa (Sulfonamide * RashMEDICATIONS:esomepra zole (NEXIUM) 40 mg capsule Take by mouth DAILY (6 AM).hydrOXYzine HCl (ATARAX) 10 mg tablet Take by mouth three times daily asneeded.celecoxib (CELEBREX) 200 mg capsule Take by mouth twice daily.temazepam (RESTORIL) 15 mg cap Take by mouth at bedtime as needed.POTASSIUM CHLORIDE (KLOR-CON M20 ORAL) Take by mouth.rOPINIRole (REQUIP) 0.5 mg tablet Take 0.5 mg by mouth daily at bedtime.CALCIUM POLYCARBOPHIL (FIBERCON ORAL) Take by mouth.lisinopril (ZESTRIL, PRINIVIL) 20 mg tablet Take by mouth once daily.tiZANidine HCl 4 mg capsule Take by mouth daily at bedtime.REVIEW OF SYSTEMS:A complete review of systems was obtained and is remarkable for that notedabove. The remaining systems are unremarkable.I personally interviewed, confirmed and edited the above information ifobtained by others.PHYSICAL EXAMINATION:BP 146/57 Pulse 86 Resp 18 Ht 160 cm (5' 3 ) Wt 127 kg (280 lb) SpO2 96% BMI 49.6 kg/i4Awgobrl: Well appearing, in no acute distress.Eyes: Conjunctiva normal, sclera normalNeck: No jugular venous distention, no palpable thyromegaly.Heart: Regular rhythm, S1, S2 normal, no S3, no S4. No murmur. No carotidbruits.Respirator y: Mildly decreased breath sounds bilaterally. Good respiratoryeffort.GI: Soft, nontender, bowel sounds normal, no palpable hepatosplenomegalyExtrem ities: Normal pulses in distal lower extremities. Moderate 2+bilateral lower extremity edema, left greater than right. There is skindiscoloration in the right lower extremityNeuro: Alert, cooperative with no focal deficit.Psych: Pleasant and cooperative.Skin: No rashes or wounds.CARDIOVASCULAR MEDICINE TESTING:Echocardiograms: 11/28/2014 - a 2-D echocardiogram performed at the [facility] normal left ventricular systolic function with an ejectionfraction of 60%. There was no significant valvular disease identified.There was no comment on diastolic function.02/24/2017 - a 2-D echocardiogram performed at the [facility] low normal to mildly reduced left ventricular systolic functionwith an ejection fraction of 45-50%. There was minimal concentric leftventricular hypertrophy present. There was evidence of grade 1 diastolicdysfunction. There was mild mitral regurgitation. No estimate a rightventricular systolic pressure was possible on this study.Stress Evaluations:02/26/2016 - a Lexiscan nuclear stress evaluation at the [facility] revealed a left ventricular ejection fraction of 50% with abnormalseptal wall motion. There was a small defect involving the inferior ohapical wall which was fixed. This was felt to likely represent artifact.There was no other evidence of Lexiscan stress-induced ischemia.02/24/2017 - a Lexiscan nuclear stress evaluation at the [facility] revealed mildly diminished left ventricular systolic function withan ejection fraction of 48%. There was a moderate sized anterior septaldefect which was partially reversible noted. This was read as suggestiveof possible stress-induced ischemia.Cardiac Catheterizations: 004 - a cardiac catheterization performed at the [facility] revealed normal coronary arteries. There was moderately decreasedleft ventricular systolic function noted with an ejection fraction of 30%. Moderately elevated right heart pressures and a normal cardiac index werenoted. The patient was continued on Demadex, Diovan, around oh lactone,Coreg 3.125 mg twice a day.06/12/2005 - a right and left heart catheterization was performed at [facility] revealing nonobstructive coronary arterydisease, left ventricular ejection fraction of 50%, moderate pulmonaryhypertension, severely elevated left ventricular end-diastolic pressure,normal cardiac output and normal cardiac index. The patient was startedon Lasix 40 mg twice a day.02/14/2008 - a right and left heart catheterization was performed at [facility] revealing mild 3 vessel coronaryartery disease, mildly reduced left ventricular systolic function (noejection fraction noted on the report), mild mitral regurgitation, mildlyelevated left ventricular end-diastolic pressure, mild pulmonaryhypertension and a normal cardiac index. No changes were made to [facility] regimen.02/28/2013 - a right and left heart catheterization performed at [facility] reveals mild 3 vessel coronary artery disease, mildpulmonary hypertension, preserved cardiac index and no evidence of cardiacshunt. This study was performed due to an abnormal stress test and asuspected patent foramen ovale versus ASD on echocardiogram. Medicaltherapy was recommended but not detailed in the report.03/05/2017 - a right and left heart catheterization was performed at [facility] revealing nonobstructive coronary artery disease,mildly reduced left ventricular systolic function by noninvasive imaging,moderately elevated right-sided heart pressures and mildly elevatedpulmonary capillary wedge pressure, low normal cardiac output, low normalcardiac index and moderate to severe systemic hypertension. Lasix 20 mgdaily was re-added. The patient was continued on anangiotensin-converting enzyme inhibitor and a beta lianna wasrecommended.Electroca rdiograms:05/16/2017 - a 12-lead electrocardiogram reveals normal sinus rhythm at 58bpm. There is a left bundle branch block present.06/30/2017 - a 12-lead electrocardiogram reveals sinus bradycardia at 53bpm. There is a left bundle branch block present.IMPRESSION:1. Dyspnea on exertion - ICD9: 786.09, ICD10: R06.09 (primary diagnosis),likely multi-factorial, worsened by underlying pulmonary disease,obstructive sleep apnea not treated, history of both systolic anddiastolic heart failure, intolerant of diuretic therapy, gastroesophagealreflux disease and obesity. No significant pattern changer the past 2-3weeks.2. Edema, unspecified type - ICD9: 782.3, ICD10: R60.9, likelymulti-factorial similar to problem #1. Left lower extremity more involvedthan right lower extremity.3. Chronic combined systolic and diastolic congestive heart failure (HCC)- ICD9: 428.42, 428.0, ICD10: I50.42, most recent echocardiogram withimproved systolic function and grade 1 diastolic dysfunction. Currentlyonly on lisinopril due to the patient not tolerating diuretic therapy.The patient states today that her previous physicians took her off ofcarvedilol. This was due to low blood pressures.4. Essential hypertension - ICD9: 401.9, ICD10: I10, blood pressure uppernormal today.5. Pulmonary HTN (HCC) - ICD9: 416.8, ICD10: I27.2, diagnosed by multiplecardiac catheterizations in the past.6. JEREMY (obstructive sleep apnea) - ICD9: 327.23, ICD10: G47.33, notcurrently treated as the patient is intolerant of her mask. She isapparently scheduled for a sleep study soon.7. Gastroesophageal reflux disease, esophagitis presence not specified -ICD9: 530.81, ICD10: K21.9, care per primary care team.8. Fibromyalgia - ICD9: 729.1, ICD10: M79.79. Restrictive lung disease - ICD9: 518.89, ICD10: J98.4, care perpulmonology.10. Obesity, Class III, BMI 40-49.9 (morbid obesity) (HCC) - ICD9: 278.01,ICD10: E66.0111. Preoperative cardiovascular evaluation prior to planned right kneereplacement. The patient's risk for the surgery as moderate. I wouldplace her risk in the 5-10% range. No further workup is necessary priorto that procedure.12. Nonobstructive coronary artery disease by multiple cardiaccatheterizations. PLAN:Discontinue Celebrex for one month..Patient will be starting CPAP at home in the near future.Monitor her lower extremity swelling, if this improves then Celebrex maybe playing a role in her edema.Low-sodium diet.Monitor blood pressure at home.Continuous effort at weight loss.The patient will return to the office in one month to discuss any changein her edema after stopping Celebrex. Hopefully she will have started herCPAP at the same time.A copy of this note will be provided to the requesting physician by way ofshared medical record or to the requesting physician via U.S. Mail.This document was generated utilizing [employer] Studio dictation. I have reviewedand verified that the contents of the document are accurate with theexception of minor grammatical, spelling and punctuation errors.CONTACT INFORMATION:Thank you for allowing us to participate in the care of this very pleasantpatient. Please free to contact us if we can be of any furtherassistance.Maria A Ann MD, FACCRobert and Mechelle DoddLegacy Healthment of Cardiovascular MedicineSelect Medical [facility]rt and [facility] Institute[address] [place], [place] [address]Sdjhwz: [phone] Normal [facility] CNOVon 06-30-2017 CNOV Office Visit (CARDFT) MILLIE GRAHAM ([id number]) 1955 [facility] Time Provider Department06/30/17 12:30 PM RAFITAITALOERIC During your visit today, we recorded the following information about you: Pulse Respiration Blood pressure Weight 74/minute 18/minute 180/91 127 kg Height 1.6 Cece Ann MD 07/06/2017 1:12 PM [facility] InstituteRobert [facility] Department of Cardiovascular MedicineOUTPATIENT VISIT DATE 06/30/17OUTPATIENT VISIT TYPENEWPRIMARY CARE PHYSICIAN:Conrad Sosa DO[address] [place] [address]Rtyfl: [phone]: [phone] COMPLAINT:Patient presents with:CARD New Patient ConsultHISTORY OF PRESENT ILLNESS:Castillo Graham is a 61 year old female with a complex past medical history ofchronic diastolic heart failure, mild nonobstructive coronary artery disease,possible secundum type atrial septal defect, essential hypertension, pulmonaryhypertension, obstructive sleep apnea intolerant of face mask, gastroesophagealreflux disease, fibromyalgia and either reactive or restrictive lung disease.The patient presents today as a new consult for weight gain and swelling. Shehad previously been evaluated and under the care of Dr. Schilling of [facility]. Arlethhas had multiple procedures performed which are detailed below. The patientrelates being on Lasix in the past for her lower extremity edema. Apparentlythe doses were gradually increased due to lack of response. Eventually thepatient developed significant renal insufficiency and the Lasix had to bedecreased or stopped. The patient states that she had terrible cramping withthe doses of Lasix. She states she was unable to continue taking it. She isnow not currently on any diuretic therapy. She believes the swelling hasworsened in her lower extremities all the way up her legs and into her abdomen. She has gained approximately 11 pounds since February of this year. She does statethat she was taking cdwh-ijm-hofgwof diet pills until recently. They were notworking. The patient has chronic complaints of dyspnea and dyspnea onexertion. She has been treated with lisinopril for her blood pressure. TheLasix was used to try to decrease her edema but was not successful. Thepatient and her son seem frustrated with the care they were given by theprevious cardiology team. By my review of the testing it seems the previouscardiologist was going by the guidelines with continued reasonable testing inan effort to try to help the patient's situation. She and her son seems veryupset with the lack of progress.PAST MEDICAL HISTORYDiagnosis Date- Anxiety- ASD (atrial septal defect)- Asthma- CAD (coronary artery disease)- CHF (congestive heart failure) ([facility])- DM (diabetes mellitus) ([facility])- Fibromyalgia- GERD (gastroesophageal reflux disease)- HTN (hypertension)- OA (osteoarthritis) of knee- JEREMY (obstructive sleep apnea)- Pulmonary HTN ([facility])- Restrictive lung disease- Vitamin D deficiencyPAST SURGICAL HISTORYProcedure Laterality Date- APPENDECTOMY HX- CARDIAC CATH 02/2013 Mild CAD / Pulm HTN- CARDIAC CATH 03/05/2017 Normal- COLONOSCOPY 02/2013- ECHO 05/2009 EF 30% LVH- EGD 02/2013- FOOT SURGERY HX- GASTRIC BYPASS HX- PAST SURGICAL HISTORY OF - TONSILLECTOMY HXSocial HistorySubstance Use Topics- Smoking status: Passive Smoke Exposure - Never Smoker Types: Cigarettes- Smokeless tobacco: Not on file- Alcohol use NoFAMILY HISTORYProblem Relation Age of Onset- Adopted: Yes- Family history unknown: YesALLERGIES:ALLERGIESAl lergen Reactions- Latex Rash- Penicillin Rash- Sulfa (Sulfonamide * RashMEDICATIONS:esomepra zole (NEXIUM) 40 mg capsule Take by mouth DAILY (6 AM).hydrOXYzine HCl (ATARAX) 10 mg tablet Take by mouth three times daily asneeded.celecoxib (CELEBREX) 200 mg capsule Take by mouth twice daily.temazepam (RESTORIL) 15 mg cap Take by mouth at bedtime as needed.POTASSIUM CHLORIDE (KLOR-CON M20 ORAL) Take by mouth.rOPINIRole (REQUIP) 0.5 mg tablet Take 0.5 mg by mouth daily at bedtime.CALCIUM POLYCARBOPHIL (FIBERCON ORAL) Take by mouth.lisinopril (ZESTRIL, PRINIVIL) 20 mg tablet Take by mouth once daily.tiZANidine HCl 4 mg capsule Take by mouth daily at bedtime.REVIEW OF SYSTEMS:A complete review of systems was obtained and is remarkable for that notedabove. The remaining systems are unremarkable.I personally interviewed, confirmed and edited the above information ifobtained by others.PHYSICAL EXAMINATION:BP 180/91 Pulse 74 Resp 18 Ht 160 cm (5' 3ANDquot;) Wt 127 kg (280 lb) SpO2 100% BMI 49.6 kg/a5Voqzhjx: Well appearing, in no acute distress.Eyes: Conjunctiva normal, sclera normalNeck: No jugular venous distention, no palpable thyromegaly.Heart: Regular rhythm, S1, S2 normal, no S3, no S4. No murmur. No carotidbruits.Respirator y: Mildly decreased breath sounds bilaterally. Good respiratoryeffort.GI: Soft, nontender, bowel sounds normal, no palpable hepatosplenomegalyExtrem ities: Normal pulses in distal lower extremities. Moderate 2+ bilaterallower extremity edema, left greater than right. There is skin discoloration inthe right lower extremityNeuro: Alert, cooperative with no focal deficit.Psych: Pleasant and cooperative.Skin: No rashes or wounds.CARDIOVASCULAR MEDICINE TESTING:Echocardiograms: 11/28/2014 - a 2-D echocardiogram performed at the [facility] normal left ventricular systolic function with an ejection fraction of60%. There was no significant valvular disease identified. There was nocomment on diastolic function.02/24/2017 - a 2-D echocardiogram performed at the [facility] low normal to mildly reduced left ventricular systolic function withan ejection fraction of 45-50%. There was minimal concentric left ventricularhypertrophy present. There was evidence of grade 1 diastolic dysfunction.There was mild mitral regurgitation. No estimate a right ventricular systolicpressure was possible on this study.Stress Evaluations:02/26/2016 - a Lexiscan nuclear stress evaluation at the [facility] a left ventricular ejection fraction of 50% with abnormal septal wallmotion. There was a small defect involving the inferior oh apical wall whichwas fixed. This was felt to likely represent artifact. There was no otherevidence of Lexiscan stress-induced ischemia.02/24/2017 - [facility] systolic function with an ejectionfraction of 48%. There was a moderate sized anterior septal defect which waspartially reversible noted. This was read as suggestive of possiblestress-induced ischemia.Cardiac Catheterizations: 004 - [facility]. There was moderately decreased leftventricular systolic function noted with an ejection fraction of 30%.Moderately elevated right heart pressures and a normal cardiac index werenoted. The patient was continued on Demadex, Diovan, around oh lactone, Coreg3.125 mg twice a day.06/12/2005 - a right and left heart catheterization was performed at [facility] revealing nonobstructive coronary artery disease,left ventricular ejection fraction of 50%, moderate pulmonary hypertension,severely elevated left ventricular end-diastolic pressure, normal cardiacoutput and normal cardiac index. The patient was started on Lasix 40 mg twicea day.02/14/2008 - a right and left heart catheterization was performed at [facility] revealing mild 3 vessel coronary arterydisease, mildly reduced left ventricular systolic function (no ejectionfraction noted on the report), mild mitral regurgitation, mildly elevated leftventricular end-diastolic pressure, mild pulmonary hypertension and a normalcardiac index. No changes were made to the medical regimen.02/28/2013 - a right and left heart catheterization performed at [facility] reveals mild 3 vessel coronary artery disease, mild pulmonaryhypertension, preserved cardiac index and no evidence of cardiac shunt. Thisstudy was performed due to an abnormal stress test and a suspected patentforamen ovale versus ASD on echocardiogram. Medical therapy was recommendedbut not detailed in the report.03/05/2017 - a right and left heart catheterization was performed at [facility] revealing nonobstructive coronary artery disease, mildlyreduced left ventricular systolic function by noninvasive imaging, moderatelyelevated right-sided heart pressures and mildly elevated pulmonary capillarywedge pressure, low normal cardiac output, low normal cardiac index andmoderate to severe systemic hypertension. Lasix 20 mg daily was re-added. Thepatient was continued on an angiotensin-converting enzyme inhibitor and a betablocker was recommended.Electrocardi ograms:05/16/2017 - a 12-lead electrocardiogram reveals normal sinus rhythm at 58 bpm. There is a left bundle branch block present.06/30/2017 - a 12-lead electrocardiogram reveals sinus bradycardia at 53 bpm.There is a left bundle branch block present.IMPRESSION:1. Dyspnea on exertion - ICD9: 786.09, ICD10: R06.09 (primary diagnosis),likely multi-factorial, worsened by underlying pulmonary disease, obstructivesleep apnea not treated, history of both systolic and diastolic heart failure,intolerant of diuretic therapy, gastroesophageal reflux disease and obesity.2. Edema, unspecified type - ICD9: 782.3, ICD10: R60.9, likely multi-factorialsimilar to problem #1.3. Chronic combined systolic and diastolic congestive heart failure (HCC) -ICD9: 428.42, 428.0, ICD10: I50.42, most recent echocardiogram with improvedsystolic function and grade 1 diastolic dysfunction. Currently only onlisinopril due to the patient not tolerating carvedilol or diuretic therapy.4. Essential hypertension - ICD9: 401.9, ICD10: I10, blood pressure elevatedhere today, patient obviously upset during this visit.5. Pulmonary HTN (HCC) - ICD9: 416.8, ICD10: I27.2, diagnosed by multiplecardiac catheterizations in the past.6. JEREMY (obstructive sleep apnea) - ICD9: 327.23, ICD10: G47.33, not currentlytreated as the patient is intolerant of her mask. She is apparently scheduledfor a sleep study soon.7. Gastroesophageal reflux disease, esophagitis presence not specified - ICD9:530.81, ICD10: K21.9, care per primary care team.8. Fibromyalgia - ICD9: 729.1, ICD10: M79.79. Restrictive lung disease - ICD9: 518.89, ICD10: J98.4, care per pulmonology.10. Obesity, Class III, BMI 40-49.9 (morbid obesity) (HCC) - ICD9: 278.01,ICD10: E66.01PLAN:I have stressed the importance of the patient having her sleep study performedand making an attempt at whatever treatment may be recommended.Low-sodium diet.Monitor blood pressure at home.Continuous effort at weight loss.I have asked the patient to return to the office in roughly 2-3 weeks. At thetime of her visit the above reviewed studies were not available. We willreview those with the patient and consider any further treatment.I have suggested to the patient that continuity of care may be important inthis situation since her past history is complex.A copy of this consultation note will be provided to the requesting physicianby way of shared medical record or to the requesting physician via U.S. Mail.This document was generated utilizing [employer] Studio dictation. I have reviewed andverified that the contents of the document are accurate with the exception ofminor grammatical, spelling and punctuation errors.CONTACT INFORMATION:Thank you for allowing us to participate in the care of this very pleasantpatient. Please free to contact us if we can be of any further assistance.Italo Ann MD, [facility] and Mechelle Manciapartment of Cardiovascular MedicineSelect Medical [facility]health Rehabilitation [facility]rt and Vascular Institute[address] [address]Gllraq: [phone] Referring Provider: NO PCP [[id number]]Allergies As of Date: 06/30/2017 Noted Allergy ReactionLATEX 06/30/2017 2 - RashPENICILLIN 06/30/2017 2 - RashSULFA (SULFONAMIDE ANTIBIOTICS) 06/30/2017 2 - RashDate Reviewed: 06/30/2017Reviewed by: Italo Ann - Fully AssessedReason for Visit: CARD New Patient Consult [1228]Primary Visit Diagnosis:Dyspnea on exertion [R06.09] Other Visit Diagnoses:Edema, unspecified type [R60.9] Chronic combined systolic and diastolic congestive heart failure (HCC) [I50.42] Essential hypertension [I10] Pulmonary HTN (HCC) [I27.2] JEREMY (obstructive sleep apnea) [G47.33] Gastroesophageal reflux disease, esophagitis presence not specified [K21.9] Fibromyalgia [M79.7] Restrictive lung disease [J98.4] Obesity, Class III, BMI 40-49.9 (morbid obesity) ([facility]) [E66.01]Prescriptions as of 06/30/2017 Sig: ESOMEPRAZOLE MAGNESIUM 40 MG * Take by mouth DAILY (6 AM). HYDROXYZINE HCL 10 MG TABLET Take by mouth three times da* CELECOXIB 200 MG CAPSULE Take by mouth twice daily. TEMAZEPAM 15 MG CAPSULE Take by mouth at bedtime as * KLOR-CON M20 ORAL Take by mouth. ROPINIROLE 0.5 MG TABLET Take 0.5 mg by mouth daily at* FIBERCON ORAL Take by mouth. LISINOPRIL 20 MG TABLET Take by mouth once daily. TIZANIDINE 4 MG CAPSULE Take by mouth daily at bedti*Problem List As Of Date 06/30/2017 Noted Resolved Obesity, Class III, BMI >= 40 (morbid obesity) *INVALID FOR* Status:Closed by LUC ANN MD on 07/06/17 Normal [facility] PROGRESSon 06-30-2017 Protein mass conc HNO ID: [id number]: Italo Montezervice: (none)Author Type: PhysicianType: Progress NotesFiled: 07/06/2017 1:12 PMNote Text:Heart and Vascular InstituteGarrison and Mechelle Brennanthe [facility] Department of Cardiovascular MedicineOUTPATIENT VISIT DATE 06/30/17OUTPATIENT VISIT TYPENEWPRIMARY CARE PHYSICIAN:Conrad Sosa DO[address] [place] [address]Ihjmu: [phone]: [phone] COMPLAINT:Patient presents with:CARD New Patient ConsultHISTORY OF PRESENT ILLNESS:Castillo Graham is a 61 year old female with a complex past medical history ofchronic diastolic heart failure, mild nonobstructive coronary arterydisease, possible secundum type atrial septal defect, essentialhypertension, pulmonary hypertension, obstructive sleep apnea intolerantof face mask, gastroesophageal reflux disease, fibromyalgia and eitherreactive or restrictive lung disease.The patient presents today as a new consult for weight gain and swelling.She had previously been evaluated and under the care of Dr. Schilling [facility]. She has had multiple procedures performed which are detailed below. The patient relates being on Lasix in the past for her lower extremityedema. Apparently the doses were gradually increased due to lack ofresponse. Eventually the patient developed significant renalinsufficiency and the Lasix had to be decreased or stopped. The patientstates that she had terrible cramping with the doses of Lasix. She statesshe was unable to continue taking it. She is now not currently on anydiuretic therapy. She believes the swelling has worsened in her lowerextremities all the way up her legs and into her abdomen. She has gainedapproximately 11 pounds since February of this year. She does state that shewas taking dvah-uui-cwuisfw diet pills until recently. They were notworking. The patient has chronic complaints of dyspnea and dyspnea onexertion. She has been treated with lisinopril for her blood pressure.The Lasix was used to try to decrease her edema but was not successful.The patient and her son seem frustrated with the care they were given bythe previous cardiology team. By my review of the testing it seems theprevious arts and humanities council director was going by the guidelines with continuedreasonable testing in an effort to try to help the patient's situation.She and her son seems very upset with the lack of progress.PAST MEDICAL HISTORYDiagnosis Date- Anxiety- ASD (atrial septal defect)- Asthma- CAD (coronary artery disease)- CHF (congestive heart failure) ([facility])- DM (diabetes mellitus) ([facility])- Fibromyalgia- GERD (gastroesophageal reflux disease)- HTN (hypertension)- OA (osteoarthritis) of knee- JEREMY (obstructive sleep apnea)- Pulmonary HTN ([facility])- Restrictive lung disease- Vitamin D deficiencyPAST SURGICAL HISTORYProcedure Laterality Date- APPENDECTOMY HX- CARDIAC CATH 02/2013 Mild CAD / Pulm HTN- CARDIAC CATH 03/05/2017 Normal- COLONOSCOPY 02/2013- ECHO 05/2009 EF 30% LVH- EGD 02/2013- FOOT SURGERY HX- GASTRIC BYPASS HX- PAST SURGICAL HISTORY OF - TONSILLECTOMY HXSocial HistorySubstance Use Topics- Smoking status: Passive Smoke Exposure - Never Smoker Types: Cigarettes- Smokeless tobacco: Not on file- Alcohol use NoFAMILY HISTORYProblem Relation Age of Onset- Adopted: Yes- Family history unknown: YesALLERGIES:ALLERGIESAl lergen Reactions- Latex Rash- Penicillin Rash- Sulfa (Sulfonamide * RashMEDICATIONS:esomepra zole (NEXIUM) 40 mg capsule Take by mouth DAILY (6 AM).hydrOXYzine HCl (ATARAX) 10 mg tablet Take by mouth three times daily asneeded.celecoxib (CELEBREX) 200 mg capsule Take by mouth twice daily.temazepam (RESTORIL) 15 mg cap Take by mouth at bedtime as needed.POTASSIUM CHLORIDE (KLOR-CON M20 ORAL) Take by mouth.rOPINIRole (REQUIP) 0.5 mg tablet Take 0.5 mg by mouth daily at bedtime.CALCIUM POLYCARBOPHIL (FIBERCON ORAL) Take by mouth.lisinopril (ZESTRIL, PRINIVIL) 20 mg tablet Take by mouth once daily.tiZANidine HCl 4 mg capsule Take by mouth daily at bedtime.REVIEW OF SYSTEMS:A complete review of systems was obtained and is remarkable for that notedabove. The remaining systems are unremarkable.I personally interviewed, confirmed and edited the above information ifobtained by others.PHYSICAL EXAMINATION:BP 180/91 Pulse 74 Resp 18 Ht 160 cm (5' 3 ) Wt 127 kg (280 lb) SpO2 100% BMI 49.6 kg/f1Xrigycs: Well appearing, in no acute distress.Eyes: Conjunctiva normal, sclera normalNeck: No jugular venous distention, no palpable thyromegaly.Heart: Regular rhythm, S1, S2 normal, no S3, no S4. No murmur. No carotidbruits.Respirator y: Mildly decreased breath sounds bilaterally. Good respiratoryeffort.GI: Soft, nontender, bowel sounds normal, no palpable hepatosplenomegalyExtrem ities: Normal pulses in distal lower extremities. Moderate 2+bilateral lower extremity edema, left greater than right. There is skindiscoloration in the right lower extremityNeuro: Alert, cooperative with no focal deficit.Psych: Pleasant and cooperative.Skin: No rashes or wounds.CARDIOVASCULAR MEDICINE TESTING:Echocardiograms: 11/28/2014 - a 2-D echocardiogram performed at the [facility] normal left ventricular systolic function with an ejectionfraction of 60%. There was no significant valvular disease identified.There was no comment on diastolic function.02/24/2017 - a 2-D echocardiogram performed at the [facility] low normal to mildly reduced left ventricular systolic functionwith an ejection fraction of 45-50%. There was minimal concentric leftventricular hypertrophy present. There was evidence of grade 1 diastolicdysfunction. There was mild mitral regurgitation. No estimate a rightventricular systolic pressure was possible on this study.Stress Evaluations:02/26/2016 - a Lexiscan nuclear stress evaluation at the [facility] revealed a left ventricular ejection fraction of 50% with abnormalseptal wall motion. There was a small defect involving the inferior ohapical wall which was fixed. This was felt to likely represent artifact.There was no other evidence of Lexiscan stress-induced ischemia.02/24/2017 - a Lexiscan nuclear stress evaluation at the [facility] revealed mildly diminished left ventricular systolic function withan ejection fraction of 48%. There was a moderate sized anterior septaldefect which was partially reversible noted. This was read as suggestiveof possible stress-induced ischemia.Cardiac Catheterizations: 004 - a cardiac catheterization performed at the [facility] revealed normal coronary arteries. There was moderately decreasedleft ventricular systolic function noted with an ejection fraction of 30%. Moderately elevated right heart pressures and a normal cardiac index werenoted. The patient was continued on Demadex, Diovan, around oh lactone,Coreg 3.125 mg twice a day.06/12/2005 - a right and left heart catheterization was performed at [facility] revealing nonobstructive coronary arterydisease, left ventricular ejection fraction of 50%, moderate pulmonaryhypertension, severely elevated left ventricular end-diastolic pressure,normal cardiac output and normal cardiac index. The patient was startedon Lasix 40 mg twice a day.02/14/2008 - a right and left heart catheterization was performed at [facility] revealing mild 3 vessel coronaryartery disease, mildly reduced left ventricular systolic function (noejection fraction noted on the report), mild mitral regurgitation, mildlyelevated left ventricular end-diastolic pressure, mild pulmonaryhypertension and a normal cardiac index. No changes were made to [facility] regimen.02/28/2013 - a right and left heart catheterization performed at [facility] reveals mild 3 vessel coronary artery disease, mildpulmonary hypertension, preserved cardiac index and no evidence of cardiacshunt. This study was performed due to an abnormal stress test and asuspected patent foramen ovale versus ASD on echocardiogram. Medicaltherapy was recommended but not detailed in the report.03/05/2017 - a right and left heart catheterization was performed at [facility] revealing nonobstructive coronary artery disease,mildly reduced left ventricular systolic function by noninvasive imaging,moderately elevated right-sided heart pressures and mildly elevatedpulmonary capillary wedge pressure, low normal cardiac output, low normalcardiac index and moderate to severe systemic hypertension. Lasix 20 mgdaily was re-added. The patient was continued on anangiotensin-converting enzyme inhibitor and a beta lianna wasrecommended.Electroca rdiograms:05/16/2017 - a 12-lead electrocardiogram reveals normal sinus rhythm at 58bpm. There is a left bundle branch block present.06/30/2017 - a 12-lead electrocardiogram reveals sinus bradycardia at 53bpm. There is a left bundle branch block present.IMPRESSION:1. Dyspnea on exertion - ICD9: 786.09, ICD10: R06.09 (primary diagnosis),likely multi-factorial, worsened by underlying pulmonary disease,obstructive sleep apnea not treated, history of both systolic anddiastolic heart failure, intolerant of diuretic therapy, gastroesophagealreflux disease and obesity.2. Edema, unspecified type - ICD9: 782.3, ICD10: R60.9, likelymulti-factorial similar to problem #1.3. Chronic combined systolic and diastolic congestive heart failure (HCC)- ICD9: 428.42, 428.0, ICD10: I50.42, most recent echocardiogram withimproved systolic function and grade 1 diastolic dysfunction. Currentlyonly on lisinopril due to the patient not tolerating carvedilol ordiuretic therapy.4. Essential hypertension - ICD9: 401.9, ICD10: I10, blood pressureelevated here today, patient obviously upset during this visit.5. Pulmonary HTN (HCC) - ICD9: 416.8, ICD10: I27.2, diagnosed by multiplecardiac catheterizations in the past.6. JEREMY (obstructive sleep apnea) - ICD9: 327.23, ICD10: G47.33, notcurrently treated as the patient is intolerant of her mask. She isapparently scheduled for a sleep study soon.7. Gastroesophageal reflux disease, esophagitis presence not specified -ICD9: 530.81, ICD10: K21.9, care per primary care team.8. Fibromyalgia - ICD9: 729.1, ICD10: M79.79. Restrictive lung disease - ICD9: 518.89, ICD10: J98.4, care perpulmonology.10. Obesity, Class III, BMI 40-49.9 (morbid obesity) (HCC) - ICD9: 278.01,ICD10: E66.01PLAN:I have stressed the importance of the patient having her sleep studyperformed and making an attempt at whatever treatment may be recommended.Low-sodium diet.Monitor blood pressure at home.Continuous effort at weight loss.I have asked the patient to return to the office in roughly 2-3 weeks. Atthe time of her visit the above reviewed studies were not available. Wewill review those with the patient and consider any further treatment.I have suggested to the patient that continuity of care may be importantin this situation since her past history is complex.A copy of this consultation note will be provided to the requestingphysician by way of shared medical record or to the requesting physicianvia U.S. Mail.This document was generated utilizing [employer]. I have reviewedand verified that the contents of the document are accurate with theexception of minor grammatical, spelling and punctuation errors.CONTACT INFORMATION:Thank you for allowing us to participate in the care of this very pleasantpatient. Please free to contact us if we can be of any furtherassistance.Maria A Ann MD, FORMERLY [facility]ITALCRar[facility] and Mechelle Manciapartment of Cardiovascular MedicineSelect Medical [facility] [address]Fzkinb: [phone] Normal [facility] Vital Signs Date Time Vital Sign Value Performing Clinician Mary miguel 07-07-2023 14:15-0400 Body height 160.02 cm Soto Romeo Other [facility] Other 07-07-2023 14:15-0400 Body mass index (BMI) [Ratio] 36.31 kg/m2 Soto Romeo Other [facility] Other 07-07-2023 14:15-0400 Body temperature 97.4 [degF] Soto Romeo Other [facility] Other 07-07-2023 14:15-0400 Body weight 92.99 kg Soto Romeo Other [facility] Other 07-07-2023 14:15-0400 Diastolic blood pressure 80 mm[Hg] Soto Tobinno Other [facility] Other 07-07-2023 14:15-0400 Respiratory rate 20 /min Soto Tobinno Other [facility] Other 07-07-2023 14:15-0400 SaO2% (BldA) [Mass fraction] 100 % Soto Romeo Other [facility] Other 07-07-2023 14:15-0400 Systolic blood pressure 145 mm[Hg] Soto Romeo Other [facility] Other 03-25-2023 08:50-0400 Body temperature 97.5 [degF] Anusha Barber MD Work Phone: [employer] 03-25-2023 08:50-0400 Diastolic blood pressure 67 mm[Hg] Anusha Barber MD Work Phone: [employer] 03-25-2023 08:50-0400 Heart rate 76 /min Anusha Barber MD Work Phone: [employer] 03-25-2023 08:50-0400 SaO2% (BldA) [Mass fraction] 96 % Anusha Barber MD Work Phone: [employer] 03-25-2023 08:50-0400 Systolic blood pressure 111 mm[Hg] Anusha Barber MD Work Phone: [employer] 03-25-2023 04:20-0400 Respiratory rate 14 /min Anusha Barber MD Work Phone: [employer] 03-19-2023 11:45-0400 Body height 160 cm Anusha Barber MD Work Phone: [employer] 03-19-2023 11:45-0400 Body mass index (BMI) [Ratio] 40.07 kg/m2 Anusha Barber MD Work Phone: [employer] 03-19-2023 11:45-0400 Body weight 102.6 kg Anusha Barber MD Work Phone: [employer] 02-09-2023 13:45-0400 Body height 160.02 cm Reynaldo Trejo Other [facility] Other 02-09-2023 13:45-0400 Body mass index (BMI) [Ratio] 42.31 kg/m2 Reynaldo Trejo Other [facility] Other 02-09-2023 13:45-0400 Body weight 108.37 kg Reynaldo Trejo Other [facility] Other 02-09-2023 13:45-0400 Diastolic blood pressure 61 mm[Hg] Reynaldo Trejo Other [facility] Other 02-09-2023 13:45-0400 Respiratory rate 18 /min Reynaldo Trejo Other [facility] Other 02-09-2023 13:45-0400 SaO2% (BldA) [Mass fraction] 98 % Reynaldo Trejo Other [facility] Other 02-09-2023 13:45-0400 Systolic blood pressure 125 mm[Hg] Reynaldo Trejo Other [facility] Other 01-06-2023 15:15-0400 Body height 160.02 cm Soto Romeo Other [facility] Other 01-06-2023 15:15-0400 Body mass index (BMI) [Ratio] 41.8 kg/m2 Christnilesher Agueda Other [facility] Other 01-06-2023 15:15-0400 Body temperature 98 [degF] Waner Agueda Other [facility] Other 01-06-2023 15:15-0400 Body weight 107.05 kg Christnilesher Gaueda Other [facility] Other 01-06-2023 15:15-0400 Diastolic blood pressure 74 mm[Hg] Waner Agueda Other [facility] Other 01-06-2023 15:15-0400 Respiratory rate 20 /min Waner Agueda Other [facility] Other 01-06-2023 15:15-0400 SaO2% (BldA) [Mass fraction] 98 % Waner Agueda Other [facility] Other 01-06-2023 15:15-0400 Systolic blood pressure 117 mm[Hg] Waner Agueda Other [facility] Other 10-06-2022 08:06-0500 Body temperature 97.7 [degF] Anusha Barber MD Work Phone: [employer] 10-06-2022 08:06-0500 Diastolic blood pressure 75 mm[Hg] Anusha Barber MD Work Phone: [employer] 10-06-2022 08:06-0500 Heart rate 73 /min Anusha Barber MD Work Phone: [employer] 10-06-2022 08:06-0500 Respiratory rate 16 /min Anusha Barber MD Work Phone: [employer] 10-06-2022 08:06-0500 SaO2% (BldA) [Mass fraction] 96 % Anusha Barber MD Work Phone: [employer] 10-06-2022 08:06-0500 Systolic blood pressure 134 mm[Hg] Anusha Barber MD Work Phone: [employer] 10-02-2022 10:00-0500 Body height 160 cm Anusha Barber MD Work Phone: [employer] 10-02-2022 10:00-0500 Body mass index (BMI) [Ratio] 43 kg/m2 Anusha Barber MD Work Phone: [employer] 10-02-2022 10:00-0500 Body weight 110.1 kg Anusha Barber MD Work Phone: [employer] 09-30-2022 11:00-0500 Body height 160.02 cm Agustinoliver Lan[employer] Other [facility] Other 09-30-2022 11:00-0500 Body mass index (BMI) [Ratio] 43.61 kg/m2 Tg Lanicareynas Other [facility] Other 09-30-2022 11:00-0500 Body temperature 97.3 [degF] Azoliver MetaCartas Other [facility] Other 09-30-2022 11:00-0500 Body weight 111.68 kg Azoliver [employer] Other [facility] Other 09-30-2022 11:00-0500 Diastolic blood pressure 75 mm[Hg] Azoliver Lanicareynas Other [facility] Other 09-30-2022 11:00-0500 Respiratory rate 18 /min Tg Ortega Other [facility] Other 09-30-2022 11:00-0500 SaO2% (BldA) [Mass fraction] 94 % Tg Ortega Other [facility] Other 09-30-2022 11:00-0500 Systolic blood pressure 111 mm[Hg] Tg Ortega Other [facility] Other 09-25-2022 13:14-0500 Body height 160.02 cm Conrad Harrell [email or web address] Work Phone: [employer] 250 DO Work Phone: 09-25-2022 13:14-0500 Body mass index (BMI) [Ratio] 43.93 kg/m2 Conradamador Valentinering Work Phone: [employer] DO Work Phone: 09-25-2022 13:14-0500 Body surface area Derived from formula 2.12 m2 Conrad Harrell [email or web address] Work Phone: [employer] 250 DO Work Phone: 09-25-2022 13:14-0500 Body weight 112.49 kg Conrad Julio Cesar Sosa Work Phone: [employer] 250 DO Work Phone: 09-25-2022 13:14-0500 Diastolic blood pressure 70 mm[Hg] Conrad Julio Cesar Sosa Work Phone: [employer] 250 DO Work Phone: 09-25-2022 13:14-0500 Heart rate 54 /min Conrad Harrell Sosa Work Phone: [facility] 250 DO Work Phone: 09-25-2022 13:14-0500 Systolic blood pressure 122 mm[Hg] Conrad Sosa Work Phone: [facility] 250 DO Work Phone: 08-18-2022 10:00-0400 Body height 160.02 cm Reynaldo Trejo Other [employer] Other 08-18-2022 10:00-0400 Body mass index (BMI) [Ratio] 43.55 kg/m2 Reynaldo Trejo Other [employer] Other 08-18-2022 10:00-0400 Body weight 111.54 kg Reynaldo Trejo Other [facility] Other 08-18-2022 10:00-0400 Diastolic blood pressure 70 mm[Hg] Reynaldo Trejo Other [facility] Other 08-18-2022 10:00-0400 Respiratory rate 18 /min Reynaldo Trejo Other [facility] Other 08-18-2022 10:00-0400 SaO2% (BldA) [Mass fraction] 99 % Reynaldo Trejo Other [facility] Other 08-18-2022 10:00-0400 Systolic blood pressure 124 mm[Hg] Reynaldo Trejo Other [facility] Other 07-01-2022 10:15-0400 Body height 160.02 cm Reynaldo Trejo Other [facility] Other 07-01-2022 10:15-0400 Body mass index (BMI) [Ratio] 44.85 kg/m2 Reynaldo Trejo Other [facility] Other 07-01-2022 10:15-0400 Body weight 114.85 kg Reynaldo Trejo Other [facility] Other 07-01-2022 10:15-0400 Diastolic blood pressure 66 mm[Hg] Reynaldo Trejo Other [facility] Other 07-01-2022 10:15-0400 Respiratory rate 18 /min Reynaldo Trejo Other [facility] Other 07-01-2022 10:15-0400 SaO2% (BldA) [Mass fraction] 97 % Reynaldo Trejo Other [facility] Other 07-01-2022 10:15-0400 Systolic blood pressure 127 mm[Hg] Reynaldo Trejo Other [facility] Other 05-27-2022 12:11-0400 Body height 160.02 cm DO Elda Schwerer Work Phone: [facility] 05-27-2022 12:11-0400 Body temperature 97.8 [degF] DO Elda Schwerer Work Phone: [facility] 05-27-2022 12:11-0400 Body weight 113.4 kg DO Elda Schwerer Work Phone: [facility] 05-27-2022 12:11-0400 Diastolic blood pressure 73 mm[Hg] DO Elda Schwerer Work Phone: [facility] 05-27-2022 12:11-0400 Heart rate 74 /min DO Elda Schwerer Work Phone: [facility] 05-27-2022 12:11-0400 Respiratory rate 18 /min DO Elda Schwerer Work Phone: [facility] 05-27-2022 12:11-0400 SaO2% (BldA) [Mass fraction] 97 % DO Elda Schwerer Work Phone: [facility] 05-27-2022 12:11-0400 Systolic blood pressure 142 mm[Hg] DO Elda Schwerer Work Phone: [facility] 05-20-2022 12:15-0400 Body height 160.02 cm Reynaldo Trejo Other [facility] Other 05-20-2022 12:15-0400 Body mass index (BMI) [Ratio] 44.58 kg/m2 Reynaldo Trejo Other [facility] Other 05-20-2022 12:15-0400 Body weight 114.17 kg Reynaldo Trejo Other [facility] Other 05-20-2022 12:15-0400 Diastolic blood pressure 58 mm[Hg] Reynaldo Trejo Other [facility] Other 05-20-2022 12:15-0400 Respiratory rate 18 /min Reynaldo Trejo Other [facility] Other 05-20-2022 12:15-0400 SaO2% (BldA) [Mass fraction] 96 % Reynaldo Trejo Other [facility] Other 05-20-2022 12:15-0400 Systolic blood pressure 116 mm[Hg] Reynaldo Trejo Other [facility] Other 04-16-2022 15:45-0400 Body height 160.02 cm Reynaldo Trejo Other [facility] Other 04-16-2022 15:45-0400 Body mass index (BMI) [Ratio] 44.99 kg/m2 Reynaldo Trejo Other [facility] Other 04-16-2022 15:45-0400 Body weight 115.21 kg Reynaldo Trejo Other [facility] Other 04-16-2022 15:45-0400 Diastolic blood pressure 67 mm[Hg] Reynaldo Trejo Other [facility] Other 04-16-2022 15:45-0400 Respiratory rate 18 /min Reynaldo Trejo Other [facility] Other 04-16-2022 15:45-0400 SaO2% (BldA) [Mass fraction] 97 % Reynaldo Trejo Other [facility] Other 04-16-2022 15:45-0400 Systolic blood pressure 123 mm[Hg] Reynaldo Trejo Other [facility] Other 04-16-2022 13:57-0400 Body temperature 98 [degF] DO Elda Schwerer Work Phone: [facility] 04-16-2022 13:57-0400 Body weight 115.21 kg DO Elda Schwerer Work Phone: [facility] 04-16-2022 13:57-0400 Diastolic blood pressure 73 mm[Hg] DO Elda Schwerer Work Phone: [facility] 04-16-2022 13:57-0400 Heart rate 81 /min DO Elda Schwerer Work Phone: [facility] 04-16-2022 13:57-0400 Respiratory rate 16 /min DO Elda Schwerer Work Phone: [facility] 04-16-2022 13:57-0400 SaO2% (BldA) [Mass fraction] 94 % DO Elda Schwerer Work Phone: [facility] 04-16-2022 13:57-0400 Systolic blood pressure 169 mm[Hg] DO Eldapiyush Lynnerer Work Phone: [facility] 04-15-2022 15:45-0400 Body height 160.02 cm Soto Romeo Other [facility] Other 04-15-2022 15:45-0400 Body mass index (BMI) [Ratio] 44.63 kg/m2 Soto Romeo Other [facility] Other 04-15-2022 15:45-0400 Body temperature 97 [degF] Soto Romeo Other [facility] Other 04-15-2022 15:45-0400 Body weight 114.31 kg Soto Romeo Other [facility] Other 04-15-2022 15:45-0400 Diastolic blood pressure 84 mm[Hg] Soto Romeo Other [facility] Other 04-15-2022 15:45-0400 Respiratory rate 20 /min Soto Romeo Other [facility] Other 04-15-2022 15:45-0400 SaO2% (BldA) [Mass fraction] 95 % Soto Romeo Other [facility] Other 04-15-2022 15:45-0400 Systolic blood pressure 141 mm[Hg] Soto Romeo Other [facility] Other 04-02-2022 14:40-0400 Body height 160.02 cm Tg Alicias Other [facility] Other 04-02-2022 14:40-0400 Body mass index (BMI) [Ratio] 44.88 kg/m2 Tg Alicias Other [facility] Other 04-02-2022 14:40-0400 Body temperature 96.9 [degF] Tg Alicias Other [facility] Other 04-02-2022 14:40-0400 Body weight 114.94 kg Azoliver Alicias Other [facility] Other 04-02-2022 14:40-0400 Diastolic blood pressure 75 mm[Hg] Tg Alicias Other [facility] Other 04-02-2022 14:40-0400 Respiratory rate 18 /min Azoliver Mcallisterhous Other [facility] Other 04-02-2022 14:40-0400 SaO2% (BldA) [Mass fraction] 92 % Azoliver Bakhous Other [facility] Other 04-02-2022 14:40-0400 Systolic blood pressure 120 mm[Hg] Azoliver Bakhous Other [facility] Other 02-05-2022 15:45-0400 Body height 160.02 cm Reynaldo Davisdiff Other [facility] Other 02-05-2022 15:45-0400 Body mass index (BMI) [Ratio] 45.06 kg/m2 Reynaldo Davisdiff Other [facility] Other 02-05-2022 15:45-0400 Body weight 115.4 kg Reynaldo Davisdiff Other [facility] Other 02-05-2022 15:45-0400 Diastolic blood pressure 68 mm[Hg] Reynaldo Davisdiff Other [facility] Other 02-05-2022 15:45-0400 Respiratory rate 18 /min Reynaldo Davisdiff Other [facility] Other 02-05-2022 15:45-0400 SaO2% (BldA) [Mass fraction] 95 % Reynaldo Davisdiff Other [facility] Other 02-05-2022 15:45-0400 Systolic blood pressure 120 mm[Hg] Reynaldo Davisdiff Other [facility] Other 12-18-2021 14:44-0500 Body height 161.29 cm DO Elda Lynnmimi Work Phone: [facility] 11-05-2021 16:00-0500 Body mass index (BMI) [Ratio] 46.09 kg/m2 Elda Schwerer Other [facility] Other 11-05-2021 16:00-0500 Body weight 118.03 kg Elda Schwerer Other [facility] Other 11-05-2021 16:00-0500 Diastolic blood pressure 88 mm[Hg] Elda Lynnerer Other [facility] Other 11-05-2021 16:00-0500 SaO2% (BldA) [Mass fraction] 93 % Elda Lynnerer Other [facility] Other 11-05-2021 16:00-0500 Systolic blood pressure 138 mm[Hg] Elda Lynnerer Other [facility] Other 11-05-2021 14:45-0500 Body height 160.02 cm Reynaldo Davisdiff Other [facility] Other 11-05-2021 14:45-0500 Body mass index (BMI) [Ratio] 46.44 kg/m2 Reynaldo Davisdiff Other [facility] Other 11-05-2021 14:45-0500 Body weight 118.93 kg Reynaldo Davisdiff Other [facility] Other 11-05-2021 14:45-0500 Diastolic blood pressure 68 mm[Hg] Reynaldo Trejo Other [facility] Other 11-05-2021 14:45-0500 Respiratory rate 18 /min Reynaldo Maya Other [facility] Other 11-05-2021 14:45-0500 SaO2% (BldA) [Mass fraction] 95 % Reynaldo Davisdiff Other [facility] Other 11-05-2021 14:45-0500 Systolic blood pressure 118 mm[Hg] Reynaldo Trejo Other [facility] Other 09-25-2021 14:00-0500 Body height 160.02 cm Laquita Medina Other [facility] Other 09-25-2021 14:00-0500 Body mass index (BMI) [Ratio] 46.97 kg/m2 Laquita Medina Other [facility] Other 09-25-2021 14:00-0500 Body temperature 98.3 [degF] Laquita Medina Other [facility] Other 09-25-2021 14:00-0500 Body weight 120.29 kg Laquita Medina Other [facility] Other 09-25-2021 14:00-0500 Diastolic blood pressure 80 mm[Hg] Laquita Medina Other [facility] Other 09-25-2021 14:00-0500 Respiratory rate 18 /min Laquita Medina Other [facility] Other 09-25-2021 14:00-0500 SaO2% (BldA) [Mass fraction] 93 % Laquita Medina Other [facility] Other 09-25-2021 14:00-0500 Systolic blood pressure 139 mm[Hg] Laquita Medina Other [facility] Other 07-25-2021 11:45-0400 Body height 160.02 cm Elda Sibley Other [facility] Other 07-25-2021 11:45-0400 Body mass index (BMI) [Ratio] 46.16 kg/m2 Elda Schwerer Other [facility] Other 07-25-2021 11:45-0400 Body weight 118.21 kg Elda Schwerer Other [facility] Other 07-25-2021 11:45-0400 Diastolic blood pressure 70 mm[Hg] Elda Schwerer Other [facility] Other 07-25-2021 11:45-0400 Respiratory rate 18 /min Elda Schwerer Other [facility] Other 07-25-2021 11:45-0400 SaO2% (BldA) [Mass fraction] 98 % Elda Schwerer Other [facility] Other 07-25-2021 11:45-0400 Systolic blood pressure 126 mm[Hg] Elda Schwerer Other [facility] Other 07-11-2021 12:00-0400 Body height 160.02 cm Reynaldo Trejo Jr. Other [facility] Other 07-11-2021 12:00-0400 Body mass index (BMI) [Ratio] 45.84 kg/m2 Reynaldo Trejo Jr. Other [facility] Other 07-11-2021 12:00-0400 Body weight 117.39 kg Reynaldo Trejo Jr. Other [facility] Other 07-11-2021 12:00-0400 Diastolic blood pressure 63 mm[Hg] Reynaldo Trejo Jr. Other [facility] Other 07-11-2021 12:00-0400 Respiratory rate 18 /min Reynaldo Davismaxim Carvajal Other [facility] Other 07-11-2021 12:00-0400 SaO2% (BldA) [Mass fraction] 96 % Reynaldo Davismaxim Carvajal Other [facility] Other 07-11-2021 12:00-0400 Systolic blood pressure 114 mm[Hg] Reynaldo Bonilladesiree Carvajal Other [facility] Other 07-10-2021 12:15-0400 Body height 160.02 cm Soto Romeo Other [facility] Other 07-10-2021 12:15-0400 Body mass index (BMI) [Ratio] 45.34 kg/m2 Soto Romeo Other [facility] Other 07-10-2021 12:15-0400 Body temperature 97.3 [degF] Soto Romeo Other [facility] Other 07-10-2021 12:15-0400 Body weight 116.12 kg Soto Romeo Other [facility] Other 07-10-2021 12:15-0400 Diastolic blood pressure 65 mm[Hg] Soto Romeo Other [facility] Other 07-10-2021 12:15-0400 Respiratory rate 20 /min Soto Romeo Other [facility] Other 07-10-2021 12:15-0400 SaO2% (BldA) [Mass fraction] 94 % Romieted Tobinno Other [facility] Other 07-10-2021 12:15-0400 Systolic blood pressure 108 mm[Hg] Soto Tobinno Other [facility] Other Encounters Encounter Date Encounter Type Care Provider Facility Start: 11-03-2023 End: 11-03-2023 ambulatory Wanjuan manuel RamsayAgueda Other [facility] Other Start: 11-03-2023 Telephone encounter Romieted Ramsay israel [facility] Start: 09-22-2023 End: 09-22-2023 ambulatory Agustinoliver Mcallistertati Other [facility] Other Start: 09-22-2023 Telephone encounter Tg Ortega [facility] Start: 07-07-2023 End: 07-07-2023 ambulatory Wanjuan manuel RamsayAgueda Other [facility] Other Start: 07-07-2023 Office outpatient vi sit 15 minutes Soto Romeo [facility] Start: 06-29-2023 End: 06-30-[address] [facility] Start: 06-04-2023 End: 06-04-2023 ambulatory Reynaldo Trejo Other [facility] Other Start: 06-04-2023 Telephone encounter Reynaldo [facility] Start: 03-30-[address] CONRAD Cornejo ility:[facility] Start: 03-23-2023 End: 03-24-2023 ambulatory Miranda Aguillon Facility:[facility] Start: 03-21-2023 End: 03-25-2023 Evaluation and management of inpatient ANUSHA BARBER [facility] Start: 03-20-2023 End: 03-20-2023 ambulatory Tg Ortega Other [facility] Other Start: 03-20-2023 Telephone encounter Tg Ortega [facility] Start: 03-19-2023 ambulatory MARLENA MCKINNEYRISHABH . Facility:[facility] Start: 03-19-2023 End: 03-25-2023 Evaluation and management of inpatient Anusha Barber MD Work Phone: [facility] Comment on above: Infection and inflam matory reaction due to other internal joint prosthesis, initial encounter ([facility] Start: 03-15-2023 End: 03-15-[address] ITALO ABERNATHY . Facility: Start: 03-06-2023 ambulatory Miranda Aguillon Facility :[facility] Start: 02-09-2023 Registered Recurring DO Conrad Soas Work Phone: [facility] Work Phone: Start: 02-09-2023 End: 02-10-2023 ambulatory Laquita Medina [facility] Other Start: 02-09-2023 Follow-up encounter Reynaldo sm[facility] Start: 01-26-2023 End: 01-26-2023 ambulatory Reynaldo Trejo Other [facility] Other Start: 01-26-2023 Telephone encounter Reynaldo sm[facility] Start: 01-07-2023 End: 01-08-[address] LEAH BARRERA Facility:[facility] Start: 01-06-2023 End: 01-06-2023 ambulatory Soto Romeo Other [facility] Other Start: 01-06-2023 Office outpatient vi sit 15 minutes Soto Romeo [facility] Start: 12-18-2022 End: 03-03-2023 ambulatory GIULIA PICHARDO . Facility:[facility] Start: 11-20-2022 End: 11-20-2022 ambulatory Reynaldo Trejo Other [facility] [employer] Other Start: 11-20-2022 Telephone encounter Reynaldo sm[facility] Start: 11-04-2022 End: 11-05-[address] VLAD OMALLEY Facility:[facility] Start: 10-24-2022 End: 02-07-[address] DAVIDSON SHAY Facility:[facility] Start: 10-02-2022 End: 10-06-2022 Evaluation and management of inpatient CONRAD SOSA [facility] Start: 10-02-2022 End: 10-06-2022 Evaluation and management of inpatient Anusha Barber MD Work Phone: [facility] Comment on above: Mechanical loosening of internal left knee prosthetic joint, subsequent encounter (Primary Dx) Start: 09-30-2022 End: 09-30-2022 ambulatory Tg Ortega Other [facility] [employer] Other Start: 09-30-2022 Office outpatient vi sit 15 minutes Tg Ortega [facility] Start: 09-25-[address] Jude Sosa Facility: Start: 09-25-2022 Office outpatient vi sit 25 minutes Conrad Sosa Work Phone: [facility] 250 DO Work Phone: Start: 09-23-2022 End: 09-24-2022 ambulatory TG ORTEGA Facility:[facility] Start: 09-18-2022 End: 09-19-2022 ambulatory ELDA SIBLEY Facility:[facility] Start: 08-18-2022 End: 08-18-2022 ambulatory Reynaldo Trejo Other [facility] [employer] Other Start: 08-18-2022 Follow-up encounter Reynaldo sm[facility] Start: 08-05-2022 End: 08-05-2022 ambulatory Reynaldo Trejo Other [facility] Other Start: 08-05-2022 Telephone encounter Reynaldo sm[facility] Start: 08-04-2022 End: 08-04-2022 ambulatory Reynaldo Trejo Other [facility] Other Start: 08-04-2022 Telephone encounter Reynaldo Davisdiff [facility] Start: 07-01-2022 End: 07-01-2022 ambulatory Reynaldo Davisdiff Other [facility] Other Start: 07-01-2022 Follow-up encounter Reynaldo Davisdiff [facility] Start: 06-05-2022 End: 08-30-[address] CONRAD SOSA Facility:[facility]1 Start: 05-29-2022 End: 05-30-[address] CONRAD SOSA Facility:[facility] Start: 05-28-2022 End: 05-28-2022 ambulatory Soto Romeo Other [facility] Other Start: 05-28-2022 Telephone encounter Soto wood [facility] [place] Start: 05-27-2022 End: 05-27-2022 Emergency department patient visit DO Elda Sibley Work Phone: [facility] Start: 05-21-2022 End: 05-21-2022 Patient encounter procedure DO Elda Sibley Work Phone: [facility] [address] Start: 05-20-2022 End: 05-20-2022 ambulatory Reynaldosara Davisdiff Other [facility] Other Start: 05-20-2022 Follow-up encounter Reynaldo Maya [facility] Start: 05-20-2022 Registered Recurring DO Cedric Sibley Work Phone: [facility] Start: 05-13-2022 End: 05-13-2022 ambulatory ELDA SIBLEY Facility:[facility]1 Start: 05-08-2022 End: 05-09-[address] ANUSHA AGUERO Facility:[facility]1 Start: 04-29-2022 End: 04-30-[address] DOCTOR ESPINO Facility:[facility]1 Start: 04-25-2022 End: 04-26-[address] Lucinda DESAI Facility:[facility]1 Start: 04-24-2022 End: 04-25-[address] LUCÍA GRIMALDO . Facility:[facility]1 Start: 04-16-2022 End: 04-16-2022 ambulatory Reynaldo Trejo Other [facility] [employer] Other Start: 04-16-2022 Follow-up encounter [facility] Start: 04-16-2022 Registered Recurring DO Cedric Sibley Work Phone: [facility] Start: 04-15-2022 End: 04-15-2022 ambulatory Soto Romeo Other [employer] Other Start: 04-15-2022 Office outpatient vi sit 15 minutes Soto Romeo [facility] Start: 04-02-2022 End: 04-02-2022 ambulatory Tg Ortega Other [facility] [employer] Other Start: 04-02-2022 Office outpatient vi sit 15 minutes Azoliver Bakreynas [facility] Start: 04-01-2022 End: 04-02-[address] LAQUITA MEDINA Facility:[facility]1 Start: 04-01-2022 Rx Renewal Elda le Work Phone: [facility] 250 DO Work Phone: Start: 03-20-2022 End: 03-20-2022 ambulatory Reynaldo Trejo Other [facility] Other Start: 03-20-2022 Telephone encounter Reynaldo Davisdiff [facility] Start: 03-13-2022 End: 03-13-2022 ambulatory Aziz Bakhous Other [facility] Other Start: 03-13-2022 Telephone encounter Aziz Bakhous [facility] [place] Start: 03-04-2022 End: 03-04-2022 ambulatory Aziz Bakhous Other [facility] Other Start: 03-04-2022 Telephone encounter Aziz Bakhous [facility] Start: 02-27-2022 End: 02-27-2022 ambulatory Elda Schwerer Other [facility] Other Start: 02-27-2022 Telephone encounter Elda Schwerer [facility] [place] Start: 02-10-2022 End: 02-10-2022 ambulatory Kamal Chaban Other [facility] Other Start: 02-10-2022 Telephone encounter Kamal Chaban [facility] Start: 02-05-2022 End: 02-05-2022 ambulatory Reynaldo Trejo Other [facility] Other Start: 02-05-2022 Follow-up encounter Reynaldo Trejo [facility] Start: 01-27-2022 End: 01-27-2022 ambulatory Elda Schwerer Other [facility] Other Start: 01-27-2022 Telephone encounter Elda Schwerer [facility] [place] Start: 01-22-2022 End: 01-22-2022 ambulatory Aziz Bakhous Other [facility] Other Start: 01-22-2022 Telephone encounter Tg Ortega [facility] Start: 01-09-2022 End: 01-09-2022 ambulatory Elda Schwerer Other [facility] Other Start: 01-09-2022 Telephone encounter Elda Schwerer [facility] [place] Start: 12-18-2021 ambulatory DOG GROOMER Daphne Bryan Facilit y: Start: 12-11-2021 End: 12-11-2021 ambulatory Elda Schwerer Other [facility] Other Start: 12-11-2021 Telephone encounter Elda Schwerer [facility] [place] Start: 12-10-2021 End: 12-10-2021 ambulatory Reynaldo Trejo Other [facility] Other Start: 12-10-2021 Telephone encounter [facility] Start: 12-03-2021 End: 12-03-2021 ambulatory Elda Schwerer Other [facility] Other Start: 12-03-2021 Telephone encounter Elda Schwerer [facility] [place] Start: 11-18-2021 End: 11-18-2021 ambulatory Kamal Kaityban Other [facility] Other Start: 11-18-2021 Telephone encounter Kamrosa Chaban [facility] Start: 11-05-2021 End: 11-05-2021 ambulatory Reynaldo Trejo Other [facility] Other Start: 11-05-2021 Follow-up encounter [facility] Start: 11-05-2021 Office outpatient vi sit 25 minutes [address] Schwe[address] [facility] [place] Start: 10-22-2021 End: 10-22-2021 ambulatory Marva Hunt Other [facility] Other Start: 10-22-2021 Telephone encounter Marva Hunt [facility] Start: 10-03-2021 End: 10-03-2021 ambulatory Elda Schwerer Other [facility] Other Start: 10-03-2021 Telephone encounter Elda Schwerer [facility] [place] Start: 10-01-[address] Martines And ana Sosa Facility: Start: 09-25-2021 End: 09-25-2021 ambulatory Laquita Medina Other [facility] Other Start: 09-25-2021 Office outpatient vi sit 15 minutes Amritmarlene Solimanmadiha [facility] Start: 09-05-2021 End: 09-05-2021 ambulatory Elda Schwerer Other [facility] Other Start: 09-05-2021 Telephone encounter Elda Schwerer [facility] [place] Start: 08-16-2021 Telephone encounter Elda Schwerer [facility] [place] Start: 08-02-2021 Telephone encounter Elda Schwerer [facility] [place] Start: 07-31-2021 Telephone encounter Elda Schwerer [facility] [place] Start: 07-25-2021 Office outpatient vi sit 25 minutes Elda Schwerer [facility] [place] Start: 07-11-2021 Follow-up encounter Reynaldo [facility] Start: 07-10-2021 Office outpatient vi sit 15 minutes Soto Romeo [facility] Start: 07-10-2021 Telephone encounter Elda Schwerer [facility] [place] Start: 08-03-2018 End: 08-04-2018 Patient encounter ANUSHA BARBER Facility:[facility] Start: 05-27-2018 End: 06-12-2018 Patient encounter ITALO ANN [facility] Start: 04-08-2018 End: 04-15-2018 Patient encounter ITALO ANN [facility] Start: 01-04-2018 End: 01-08-2018 Patient encounter ITALO ANN [facility] Start: 12-22-2017 End: 12-22-2017 Patient encounter ANUSHA BARBER Facility:[facility] Start: 07-21-2017 End: 07-27-2017 Patient encounter ITALO ANN [facility] Start: 06-30-2017 End: 07-07-2017 Patient encounter ITALO ANN [facility] Start: 06-17-2017 End: 06-28-2017 Patient encounter TROY DHILLON Facility:[facility] Echocardiogram normal Elda E Schwerer Work Phone: [facility] 250 DO Work Phone: Imaging result normal Elda E Schwerer Work Phone: [facility] 250 DO Work Phone: Procedures Date Procedure Procedure Detail Performing Clinician Start: 03-25-2023 Sars-cov-2 detection by dna/rna Anusha Barber MD Work Phone: Start: 03-24-2023 PULSE OXIMETRY, CONTINUOUS Fredis Squires MD Work Phone: Start: 03-23-2023 PULSE OXIMETRY, CONTINUOUS Fredis Squires MD Work Phone: Start: 03-23-2023 PULSE OXIMETRY, CONTINUOUS Fredis Squires MD Work Phone: Start: 03-22-2023 PULSE OXIMETRY, CONTINUOUS Fredis Squires MD Work Phone: Start: 03-22-2023 PULSE OXIMETRY, CONTINUOUS Fredis Squires MD Work Phone: Start: 03-21-2023 PULSE OXIMETRY, CONTINUOUS Fredis Squires MD Work Phone: Start: 03-21-2023 POCT GLUCOSE BLOOD Mendel Barber MD Work Phone: Start: 03-21-2023 POCT GLUCOSE BLOOD Mendel Barber MD Work Phone: Start: 03-21-2023 PULSE OXIMETRY, CONTINUOUS Fredis Squires MD Work Phone: Start: 03-21-2023 Basic metabolic pane l calcium total Fredis Squires MD Work Phone: Start: 03-21-2023 CBC W Auto Different ial panel - Blood Fredis Squires MD Work Phone: Start: 03-21-2023 POCT GLUCOSE BLOOD Mendel Barber MD Work Phone: Start: 03-20-2023 PULSE OXIMETRY, CONTINUOUS Fredis Squires MD Work Phone: Start: 03-20-2023 POCT GLUCOSE BLOOD Mendel Barber MD Work Phone: Start: 03-20-2023 POCT GLUCOSE BLOOD Mendel Barber MD Work Phone: Start: 03-20-2023 POCT GLUCOSE BLOOD Mendel Barber MD Work Phone: Start: 03-20-2023 PULSE OXIMETRY, CONTINUOUS Fredis Squires MD Work Phone: Start: 03-20-2023 Ecg routine ecg w/le ast 12 lds trcg only w/o i&r Fredis Squires MD Work Phone: Start: 03-20-2023 POCT GLUCOSE BLOOD Mendel Barber MD Work Phone: Start: 03-20-2023 Basic metabolic pane l calcium total Fredis Squires MD Work Phone: Start: 03-20-2023 CBC W Auto Different ial panel - Blood Fredis Squires MD Work Phone: Start: 03-19-2023 POCT GLUCOSE BLOOD Mendel Barber MD Work Phone: Start: 03-19-2023 PULSE OXIMETRY, CONTINUOUS Fredis Squires MD Work Phone: Start: 03-19-2023 Radiologic examinati on knee 1/2 views Kaur BURT Work Phone: Start: 03-19-2023 End: 03-19-2023 PULSE OXIMETRY, CONTINUOUS Fredis benitez MD Work Phone: Start: 03-19-2023 POCT GLUCOSE BLOOD Mendel Barber MD Work Phone: Start: 03-19-2023 Level iv surg pathol ogy gross&microscopic exam Anusha Barber MD Work Phone: Start: 03-19-2023 History of operative procedure on knee S/P left knee surgery Anusha Barber MD Work Phone: Start: 03-19-2023 Cell count misc body fluids w/differential count Anusha Barber MD Work Phone: Start: 03-19-2023 End: 03-19-2023 Culture bacterial any source anaerobic iso&id Anusha Barber MD Work Phone: Start: 03-19-2023 DIFFERENTIAL BODY FLUID Anusha Barber MD Work Phone: Start: 03-19-2023 End: 03-19-2023 INCISION DRAINAGE EXTREMITY LOWER Anusha Barber MD Work Phone: Start: 03-19-2023 End: 03-19-2023 REVISION KNEE TOTAL Anusha Barebr MD Work Phone: Start: 03-19-2023 Basic metabolic pane l calcium total Fredis Squires MD Work Phone: Start: 03-19-2023 CBC W Auto Different ial panel - Blood Fredis Squires MD Work Phone: Start: 10-06-2022 POCT GLUCOSE BLOOD Mendel Barber MD Work Phone: Start: 10-05-2022 POCT GLUCOSE BLOOD Mendel Barber MD Work Phone: Start: 10-05-2022 POCT GLUCOSE BLOOD Mendel Barber MD Work Phone: Start: 10-05-2022 POCT GLUCOSE BLOOD Mendel Barber MD Work Phone: Start: 10-05-2022 PULSE OXIMETRY, CONTINUOUS Anusha Chacona DO Work Phone: Start: 10-04-2022 PULSE OXIMETRY, CONTINUOUS Anusha Sung DO Work Phone: Start: 10-04-2022 POCT GLUCOSE BLOOD Mendel Barber MD Work Phone: Start: 10-04-2022 POCT GLUCOSE BLOOD Mendel Barber MD Work Phone: Start: 10-04-2022 POCT GLUCOSE BLOOD Mendel Barber MD Work Phone: Start: 10-04-2022 PULSE OXIMETRY, CONTINUOUS Anusha Sung DO Work Phone: Start: 10-04-2022 Basic metabolic pane l calcium total Anusha Sung DO Work Phone: Start: 10-04-2022 POCT GLUCOSE BLOOD Mendel Barber MD Work Phone: Start: 10-03-2022 POCT GLUCOSE BLOOD Mendel Barber MD Work Phone: Start: 10-03-2022 PULSE OXIMETRY, CONTINUOUS Anusha Sung DO Work Phone: Start: 10-03-2022 POCT GLUCOSE BLOOD Mendel Barber MD Work Phone: Start: 10-03-2022 POCT GLUCOSE BLOOD Mendel Barber MD Work Phone: Start: 10-03-2022 PULSE OXIMETRY, CONTINUOUS Anusha Sung DO Work Phone: Start: 10-03-2022 POCT GLUCOSE BLOOD Mendel Barber MD Work Phone: Start: 10-03-2022 Basic metabolic pane l calcium total Anusha Sung DO Work Phone: Start: 10-02-2022 POCT GLUCOSE BLOOD Mendel Barber MD Work Phone: Start: 10-02-2022 PULSE OXIMETRY, CONTINUOUS Anusha Sung DO Work Phone: Start: 10-02-2022 POCT GLUCOSE BLOOD Mendel Barber MD Work Phone: Start: 10-02-2022 PULSE OXIMETRY, CONTINUOUS Anusha Sung DO Work Phone: Start: 10-02-2022 POCT GLUCOSE BLOOD Mendel Barber MD Work Phone: Start: 10-02-2022 Level iv surg pathol ogy gross&microscopic exam Anusha Barber MD Work Phone: Start: 10-02-2022 Cell count misc body fluids w/differential count Anusha Barber MD Work Phone: Start: 10-02-2022 End: 10-02-2022 Culture bacterial any source anaerobic iso&id Anusha Barber MD Work Phone: Start: 10-02-2022 DIFFERENTIAL BODY FLUID Anusha Barber MD Work Phone: Start: 10-02-2022 End: 10-02-2022 REVISION KNEE TOTAL Anusha Barber MD Work Phone: Start: 10-02-2022 POCT GLUCOSE BLOOD Mendel Barber MD Work Phone: Start: 10-02-2022 Sars-cov-2 detection by dna/rna Anusha Barber MD Work Phone: Start: 02-08-2020 Echocardiography Start: 10-20-2017 Total colonoscopy Kaitl in E Schwerer Work Phone: Appendectomy Elda E Schwe rer Work Phone: Arthroplasty of knee Elda E Schwerer Work Phone: Comment on above: total bilateral; section Elda fontana Work Phone: Esophagogastrostomy, antesternal or antethoracic Elda E Schwerer Work Phone: Operative procedure on foot Elda Holley Schwerer Work Phone: Comment on above: tendonitis; Tonsillectomy and adenoidectomy Elda E Schwerer Work Phone: Urine culture DO Elda billsr Work Phone: Plan of Treatment Date Care Activity Detail Author Start: 03-25-2024 Falls Risk Assessment Falls Risk Assessment [facility] Start: 03-21-2024 Hypertension/CHF/CAD Annual BMP Blood Test Hypertension/CHF/CAD Annual BMP Blood Test [facility] Start: 10-05-2023 Falls Risk Assessment Falls Risk Assessment [facility] Start: 10-04-2023 Hypertension/CHF/CAD Annual BMP Blood Test Hypertension/CHF/CAD Annual BMP Blood Test [facility] Start: 09-25-2023 FUV, Provider: Luis Castanon, Status: Pen, Time: 11:20 AM FUV, Provider: Luis Castanon, Status: Pen, Time: 11:20 AM [facility] 250 DO Work Phone: Start: 09-24-2022 FUV, Provider: Luis Castanon, Status: Pen, Time: 2:30 PM [facility] 250 DO Work Phone: Start: 09-22-2022 Adolescent depression screening assessment Depression Screening [facility] Start: 09-22-2022 Hepatitis C screening Hepatitis C Screening [facility] Start: 09-22-2022 Lipid panel Cholesterol Screening (Lipid Panel) [facility] Start: 09-22-2022 Medicare Annual Wellness Visit Medicare Annual Wellness Visit [facility] Start: 09-22-2022 Screening for malignant neoplasm of breast Breast Cancer Screening [facility] Start: 09-22-2022 Screening for malignant neoplasm of colon Colorectal Cancer Screening: Colonoscopy [facility] Start: 09-22-2022 Screening for osteoporosis Osteoporosis Screening (Bone Density Screening) [facility] Start: 09-22-2022 Social Influencers of Health Screening Social Influencers of Health Screening [facility] Start: 05-27-2022 End: 05-27-2022 Emergency department patient visit Departed Emergency [facility] Start: 09-25-2021 [facility] Work Phone: Start: 09-18-2021 [facility] Work Phone: Start: 03-21-2021 COVID-19 Vaccine (3 - Booster for Pfizer series) COVID-19 Vaccine (3 - Booster for Pfizer series) [facility] Start: 03-21-2021 COVID-19 Vaccine (3 - Pfizer series) COVID-19 Vaccine (3 - Pfizer series) [facility] Start: 2005 Zoster Vaccines (1 of 2) Zoster Vaccines (1 of 2) [facility] Start: 1974 DTaP,Tdap,and Td Vaccines (1 - Tdap) DTaP,Tdap,and Td Vaccines (1 - Tdap) [facility] metabo lic 2000 panel - Serum or Plasma [facility] Work Phone: Ferritin [Mass/volum e] in Serum or Plasma [facility] Work Phone: Fungus identified in Skin by Culture [facility] Work Phone: Fungus identified in Skin by Culture [facility] Work Phone: Mycobacterium sp identified in Unspecified specimen by Organism specific culture [facility] Mycobacterium sp identified in Unspecified specimen by Organism specific culture [facility] Patient Education Urinary Tract Infection, Adult ED [facility] Work Phone: Patient referral [facility] Work Phone: Immunizations Immunization Date Immunization Notes Care Provider Fa [facility] 08-07-2022 Fluad Quadrivalent 0 .5 ML Intramuscular Prefilled Syringe Conrad Sosa Work Phone: -[facility] 250 DO Work Phone: 01-24-2021 COVID-19 Vaccine Pfizer - Documentation Purposes Only Soto Romeo Other [facility] Comment on above: Series: 01-02-2021 COVID-19 Vaccine Pfizer - Documentation Purposes Only Soto Romeo Other [facility] Comment on above: Series: 08-23-2020 influenza, injectabl e, quadrivalent, preservative free Conrad Sosa Work Phone: [facility] 250 DO Work Phone: 08-19-2020 influenza virus vaccine, unspecified formulation Elda E Schwerer Work Phone: [place] [address] DO Work Phone: 08-19-2020 pneumococcal polysaccharide vaccine, 23 valent Soto Romeo Other [facility] Other 08-06-2020 Seasonal trivalent influenza vaccine, adjuvanted, preservative free Elda E Schwerer Work Phone: [place] [address] DO Work Phone: 08-02-2019 Influenza, injectabl e, Madin Lindsay Canine Kidney, preservative free, quadrivalent Elda E Schwerer Work Phone: [place] [address] DO Work Phone: 08-02-2019 pneumococcal polysaccharide vaccine, 23 valent Elda E Schwerer Work Phone: [place] [address] DO Work Phone: 07-19-2019 influenza virus vaccine, unspecified formulation Elda E Schwerer Work Phone: [facility] 250 DO Work Phone: 07-19-2019 influenza, seasonal, injectable Conrad Sosa Work Phone: [facility] 250 DO Work Phone: 07-19-2019 pneumococcal polysaccharide vaccine, 23 valent Soto Romeo Other [facility] [employer] Other 07-19-2018 Influenza, injectabl e, Madin Dewitt Canine Kidney, quadrivalent with preservative Elda E Schwerer Work Phone: [facility] 250 DO Work Phone: 07-19-2018 pneumococcal conjuga te vaccine, 13 valent Christopher Agueda Other [facility] Other 08-20-2017 influenza, injectabl e, quadrivalent, preservative free Christopher Agueda Other [facility] Other 12-18-2011 pneumococcal polysaccharide vaccine, 23 valent Christopher Agueda Other [facility] Other Payers Date Payer Category Payer Self-pay [id number] 2017 Medicaid [id number] 2008 Medicare 1959 Medicaid [id number] 1959 Medicare [id number] 1955 Unknown [id number] ..1.527469.3.579.2. 584 1955 Unknown [id number] 2.840.1.002013.3.579.2. 584 1955 Unknown [id number] 2.840.1.510884.3.579.2. 584 1955 Unknown [id number] 2.840.1.645294.3.579.2. 356 1955 Unknown [id number] 2.840.1.121060.3.579.2. 356 1955 Unknown [id number] 2.16.840.1.780464.3.579.2. 356 1955 Unknown [id number] 2.16.840.1.863054.3.579.2. 727 1955 Unknown [id number] 2.16.840.1.094486.3.579.2. 593 1955 Unknown [id number] 2.16.840.1.705746.3.579.2. 593 1955 Unknown [id number] 2.16.840.1.516325.3.579.2. 593 1955 Unknown [id number] 2.16.840.1.360933.3.579.2. 593 1955 Unknown [id number] 2.16.840.1.748193.3.579.2. 593 1955 Unknown [id number] 2.16.840.1.595886.3.579.2. 593 1955 Unknown [id number] 2.16.840.1.040929.3.579.2. 593 1955 Unknown [id number] 2.16.840.1.798878.3.579.2. 593 1955 Unknown [id number] 2.16.840.1.979080.3.579.2. 593 1955 Unknown [id number] 2.16.840.1.457736.3.579.2. 593 1955 Unknown [id number] 2.16.840.1.521403.3.579.2. 593 1955 Unknown [id number] 2.16.840.1.894746.3.579.2. 593 1955 Unknown [id number] 2.16.840.1.616737.3.579.2. 593 1955 Unknown [id number] 2.16.840.1.631305.3.579.2. 593 1955 Unknown [id number] 2.16.840.1.314209.3.579.2. 593 1955 Unknown [id number] 2.16.840.1.588095.3.579.2. 593 1955 Unknown [id number] 2.16.840.1.966543.3.579.2. 593 1955 Unknown [id number] 2.16.840.1.304610.3.579.2. 1143 1955 Unknown [id number] 2.16.840.1.792471.3.579.2. 1143 1955 Unknown [id number] 2.16.840.1.581767.3.579.2. 1143 1955 Unknown [id number] 2.0.1.999204.3.579.2. 1143 Medicare [id number] Medicare [id number] .[id number] Private Health Insurance [facility] [id number] Unknown Unknown [id number] 2.840.1.614469.3.579.2. 531 Social History Date Type Detail Facility No illicit drug use No illicit drug use [facility] [employer] Other Comment on above: 2 cups of coffee clay ly; Rarely; high school smoker; Rarely 1-2 times yea rly; Sex Assigned At Sex Assigned At Bir th [facility] [employer] Other Start: 05-27-2022 End: 03-19-2023 Tobacco smoking status NHIS Ex-smoker (finding) [facility] Start: 1955 Sex Assigned At Female F [facility] [place] History of tobacco use Current smoker [facility] History of tobacco use Cigarette Smoker [place] [employer] Start: 10-02-2022 End: 03-19-2023 Alcohol intake Lifetime non-drinker (finding) [facility] Start: 1955 Sex Assigned At Not on file [facility] [employer] Start: 09-22-2022 End: 03-18-2023 Exposure to SARS-CoV-2 (event) Not sure [facility] Start: 03-19-2023 Tobacco use and exposure Smokeless tobacco non-user [facility] Medical Equipment Procedure Code Equipment Code Equipment Origin al Text Equipment Identifier Dates Cps Artcsurf 16m m Lt 6-9 Ef - Sn/A - [id number])N/A, [id number] [facility] Start: 10-02-2022 Asf Cps 18mm Ve L 6-9 Ef - Sn/A - [id number]/A , [id number] [facility] Start: 03-19-2023 Clinical Notes 07-10-2021 to 11-03-2023 Note Date & Type Note Facility 11-03-2023 Evaluation note Encounter Date Diagnosis Assessment Notes Oct, Asthma, moderate persistent (ICD-10 - J45.40) [facility] Other 09-19-2023 Evaluation note* Encounter Date Diagnosis Assessment Notes Treatment Notes Treatment Clinical Notes Jun, Asthma, moderate persistent (ICD-10 - J45.40) Jun, Morbid obesity (ICD-10 - E66.01) Jun, JEREMY (obstructive sleep apnea) (ICD-10 - G47.33) Jun, Allergic rhinitis (ICD-10 - J30.9) Jun, GERD (gastroesophageal reflux disease) (ICD-10 - K21.9) [facility] Other 06-07-2023 History of Present illness Narrative* Jocelyn Muller RN - 03/25/2023 2:44 PM EDT Verbal report called and provided to receiving nurse, MARIBELL Alford at [facility]. Patient's current status and most recent vital signs given, and all questions were answered. Phone number provided in case further questions arise. * Jocelyn Muller RN - 03/25/2023 2:44 PM EDT Problem: Health Behavior: Goal: Patient Specific Outcome Outcome: Adequate for Discharge Problem: Sensory: Goal: Demonstrates/reports adequate pain control Outcome: Adequate for Discharge Problem: Coping: Goal: Verbalizations of alleviation of anxiety will increase Outcome: Adequate for Discharge Problem: Cognitive: Goal: Knowledge of disease or condition will improve Outcome: Adequate for Discharge Problem: Physical Regulation: Goal: Postoperative complications will be avoided or minimized Outcome: Adequate for Discharge Goal: Ability to maintain clinical measurements within normal limits will improve Outcome: Adequate for Discharge Problem: Skin Integrity: Goal: Patient will remain free of injury and skin integrity maintained Outcome: Adequate for Discharge Problem: Respiratory: Goal: Knowledge of JEREMY (Obstructive Sleep Apnea) risk and follow-up will improve Outcome: Adequate for Discharge Problem: Cognitive: Goal: Knowledge of Transition Instructions will improve Outcome: Adequate for Discharge Problem: VTE Prevention: Goal: Will remain free of signs and symptoms of VTE Outcome: Adequate for Discharge Problem: Activity: Goal: Ability to ambulate will improve Outcome: Adequate for Discharge Goal: Range of joint motion will be supported Outcome: Adequate for Discharge Problem: Falls: Goal: (Goal) Patient will experience maximum safety and reduce risk for falls. Outcome: Adequate for Discharge Goal: Patient will not fall or injure themselves during hospitalization. Outcome: Adequate for Discharge Problem: Physical Regulation: Goal: Signs and symptoms of infection will decrease Outcome: Adequate for Discharge Goal: Complications related to the disease process, condition or treatment will be avoided or minimized Outcome: Adequate for Discharge Goal: Diagnostic test results will improve Outcome: Adequate for Discharge Problem: Activity: Goal: Mobility will improve Outcome: Adequate for Discharge Problem: PT Short Term Goals Goal: Pt will perform bed mobility with CGA Outcome: Adequate for Discharge Goal: Pt will perform transfers with SBA/FWW Outcome: Adequate for Discharge Goal: Pt will ambulate x150 ft with SBA/FWW Outcome: Adequate for Discharge Goal: Pt will ascend/descend stairs with CGA/LRAD Outcome: Adequate for Discharge Goal: Pt will indicate understanding of knee protocol HEP to begin POD1 Outcome: Adequate for Discharge Problem: Health Behavior: Goal: Patient Specific Outcome Outcome: Adequate for Discharge Goal: Patient Specific Outcome Outcome: Adequate for Discharge Goal: Patient Specific Outcome Outcome: Adequate for Discharge Problem: Sensory: Goal: Pain level will improve or be tolerable Outcome: Adequate for Discharge Goal: Ability to develop a pain control plan will improve Outcome: Adequate for Discharge Problem: Cognitive: Goal: Expressions of feelings of enhanced comfort will increase Outcome: Adequate for Discharge Goals: Control pain and improve mobility Identify possible barriers to meeting goals/advancing plan of care: infection, pain, mobility, patient's physicality Stability of the patient: Moderately Stable - Low risk of patient condition declining or worsening End of Shift Summary: Pt. met goals for discharge to a alf facility. Discussed with thepatient the last pain medication and when the next dose is due. Pt. received written discharge instruction packet to be taken to the alf facility. Pt. is discharged per the general medical doctor and the surgeon orders. Patient left in a personal vehicle to be driven to the facility by her son. * Haley He PTA - 03/25/2023 2:28 PM EDT Physical Therapy Pt declined PT d/t son almost here to take her to the SNF. * Aryan Bryan MD - 03/25/2023 12:34 PM EDT Images from the original note were not included. INFECTIOUS DISEASES DAILY PROGRESS NOTE Patient Name: Castillo Graham MR #: [id number] Hospital Day: 7 Assessment and Plan: 1. Left knee: Stable on antibiotic medication. Intraoperative cultures without growth. Preoperativespecimens with Pasteurella. 2. Leukocytosis: Improving. 3. Disposition: Anticipate discharge with IV therapy, hoping for placement by tomorrow. Discharge plan: Presents to the hospital with infection complicating her left knee. She initially underwent replacement 6 years ago and then revision last September. She seemed to do well initially but then began to have problems over the weekend with increasing pain and swelling. She sought an opinionand an aspirate revealed cell counts consistent with infection and she was found to have Pasteurella. She has a penicillin allergy. She was taken for I&D and polyethylene liner exchange by Dr. Anusha Barber on March 19. Intraoperative cultures were without growth. Given her debility she will discharge to [facility] to receive meropenem 2 g every 12 hours for 6 weeks. We will follow-up with her at that time and hopefully transition her to a lengthy course of oral therapy. ECF Nursing Instructions: 1)Picc Care 2)Qmon CBC,SR,Creat,CRP, fax to Dr. Bryan [phone] 3)IV ATB for 42 days 4)Call Dr. Bryan for F/C/S, N/V/D, rash, 5)F/U with Dr Bryan in 4-5 weeks 6) Call if released before completing IV therapy. Aryan Bryan MD Infectious Diseases Temp (24hrs), Av.6 C (97.9 F), Min:36.4 C (97.5 F), Max:36.8 C (98.2 F) Results from last 7 days Lab Units 03/21/23 0456 03/20/23 0402 03/19/23 1145 WBC AUTO K/mcL 10.8* 11.5* 12.4* PLATELETS K/mcL 300 270 268 Results from last 7 days Lab Units 03/21/23 0456 03/20/23 0402 03/19/23 1145 CREATININE mg/dL 0.92 1.03 1.10 Anti-infectives (From admission, onward) Start Dose/Rate Route Frequency Ordered Stop 03/24/23 0000 meropenem (MERREM) 1 gram injection 2 g intravenous Every 8 hours 03/24/23 2341 05/05/23 3869 Subjective/Objective: Comfortable Review of Systems: I have evaluated for the presence of nausea, vomiting, diarrhea, or rash, or IV site issues by personally discussing these with the patient. If the patient is unable, I have reviewed these with either the nurse or the electronic medical record. Pertinent findings can be found in impression and plan. Physical Examination: Visit Vitals BP 111/67 (BP Location: Left arm, Patient Position: Lying) Pulse 76 Temp 36.4 C (97.5 F) (Temporal) Resp 14 Ht 1.6 m (63 ) Wt 103 kg (226 lb 3.1 oz) SpO2 96% BMI 40.07 kg/m Smoking Status Former BSA 2.04 m GENERAL: Comfortable, in no distress HEENT: symmetric, OP moist, no lesions NECK: Supple LUNGS: Breathing is unlabored, clear HEART: regular ABDOMEN: soft, non tender, BS normal EXTREMITY: minimal edema MENTAL STATUS: comfortable SKIN: No lesions noted WOUNDS: LINES: uncomplicated Pertinent deviations from examination above may be mentioned in the impression and plan. Results/Medications Reviewed: No current facility-administered medications for this encounter. Current Outpatient Medications Medication Sig Dispense Refill albuterol HFA (PROAIR HFA ; PROVENTIL HFA ; VENTOLIN HFA) 90 mcg/actuation inhaler Inhale 2 puffs every 6 (six) hours if needed for wheezing or shortness of breath. allopurinoL (ZYLOPRIM) 100 mg tablet Take 2 tablets (200 mg total) by mouth 1 (one) time each day. budesonide-formoteroL (SYMBICORT) 160-4.5 mcg/actuation inhaler Inhale 2 puffs 2 (two) times a day.Rinse mouth with water after use to reduce aftertaste and incidence of candidiasis. Do not swallow. bumetanide (BUMEX) 1 mg tablet Take 1 tablet (1 mg total) by mouth 2 (two) times a day. docusate sodium (COLACE) 100 mg capsule Take 1 capsule (100 mg total) by mouth 2 (two) times a day if needed for constipation. gabapentin (NEURONTIN) 300 mg capsule Take 1 capsule (300 mg total) by mouth 3 (three) times a day. magnesium oxide 500 mg tablet Take 500 mg by mouth at bedtime. pantoprazole (PROTONIX) 40 mg EC tablet Take 1 tablet (40 mg total) by mouth 2 (two) times a day. Do not crush, chew, or split. rivaroxaban (XARELTO) 10 mg tablet Take 1 tablet (10 mg total) by mouth 1 (one) time each day for 28 days. Take with food. If insurance does not cover or other patient barriers exist, then change to:Lovenox 40 mg subcutaneous injection, Daily, Disp #14 28 each 0 tiZANidine (ZANAFLEX) 4 mg tablet Take 3-4 tablets (12-16 mg total) by mouth at bedtime. topiramate (TOPAMAX) 25 mg tablet Take 2 tablets (50 mg total) by mouth. Daily at 4 pm acetaminophen (TYLENOL) 500 mg tablet Take 2 tablets (1,000 mg total) by mouth 3 (three) times a day for 7 days. Take every 8 hours for one week, then as needed. Do not exceed 3,000 mg daily limit. 50 tablet 0 alendronate (FOSAMAX) 70 mg tablet Take 1 tablet (70 mg total) by mouth every 7 (seven) days. Mondays fluconazole (DIFLUCAN) 100 mg tablet Take 1 tablet (100 mg total) by mouth 1 (one) time each day ifneeded (yeast infections). fluticasone propionate (FLONASE) 50 mcg/actuation nasal spray Administer 1-2 sprays into each nostril 1 (one) time each day if needed for rhinitis or allergies. Shake gently. Before first use, prime pump. After use, clean tip and replace cap. meropenem (MERREM) 1 gram injection Infuse 2 g into a venous catheter every 8 (eight) hours. ECF Nursing Instructions: 1)Picc Care 2)Qmon CBC,SR,Creat,CRP, fax to Dr. Bryan [phone] 3)IV ATB for 42 days 4)Call Dr. Bryan for F/C/S, N/V/D, rash, 5)F/U with Dr Bryan in 4-5 weeks 6) Call if released before completing IV therapy. 252 g 0 ondansetron (ZOFRAN) 4 mg tablet Take 1 tablet (4 mg total) by mouth every 8 (eight) hours if needed for nausea or vomiting for up to 7 days. 20 tablet 0 oxyCODONE (ROXICODONE) 5 mg immediate release tablet Take 1-2 tablets (5-10 mg total) by mouth every 4 (four) hours if needed for moderate pain or severe pain for up to 7 days. Dx: Z96.6 Max Daily Amount: 60 mg 40 tablet 0 no122/iron/folic acid ( MULTI ORAL) Take 1 tablet by mouth 1 (one) time per week. tirzepatide (Mounjaro) 7.5 mg/0.5 mL pen injector Inject 0.5 mL (7.5 mg total) under the skin 1 (one) time per week. Mondays Lab Results Component Value Date WBC 10.8 (H) 03/21/2023 HGB 11.6 (L) 03/21/2023 HCT 36.0 03/21/2023 MCV 88.0 03/21/2023 PLT 300 03/21/2023 Lab Results Component Value Date GLUCOSE 112 (H) 03/21/2023 CALCIUM 9.1 03/21/2023 NA 137 03/21/2023 K 4.6 03/21/2023 CO2 25 03/21/2023 CL 104 03/21/2023 BUN 22 (H) 03/21/2023 CREATININE 0.92 03/21/2023 I have reviewed the available microbiologic data available at the time of my evaluation. I have reviewed the current antimicrobial regimen for appropriateness. I have discussed this information with the pharmacy or with the microbiology laboratory as necessary. I have reviewed the available radiographic data. Pertinent findings may be mentioned in the impression and plan. Aryan Bryan MD * Haley He PTA - 03/25/2023 12:00 PM EDT Physical Therapy Pt declined PT d/t being discharged to SNF soon and wanting to eat. * Nik Cates RN - 03/25/2023 11:14 AM EDT Discharge folder placed at the nursing station. RN update folder is available once goals have been met and the pt is cleared by [facility]. * Nik Cates RN - 03/25/2023 9:28 AM EDT Call received from Addi at [facility]. Discharge orders can be faxed to [phone]. Report [phone]. Addi indicated she was updated yesterday that transport will be around noon. * Evelyn Jose MD - 03/25/2023 8:16 AM EDT [address] [place] [address] Query Response Note PATIENT: CASTILLO GRAHAM : 1955 ADMIT DATE: 03/21/2023 12:44 PM DISCH DATE: RESPONDING PROVIDER #: [id number] CDI RESPONSE TEXT: See PN CDI QUERY TEXT: Documentation of CHF -Chronic Right-sided CHF with mild LV Dysfunction. Please further specify below: --Chronic Systolic CHF/HFrEF, please specify present on admission. --Chronic Diastolic CHF/HFpEF, please specify present on admission. --Chronic Systolic and Diastolic CHF, please specify present on admission. The patient's clinical indicators include: Clinical Indicators: [facility] Note: -03/19Consult Dr. Nadia Squires: -Chronic Right-Sided CHF with mild LV Dysfunction -02/24/17 Echo-Mildly reduced LV systolic function -02/24/17 Lexiscan BRAND RECORDER-mildly diminished LV systolic function with an EF of 48% -03/05/17-Non obstructive 3 vessel CAD -03/[address] Dee Dee Sparrow: -Congestive Heart Failure -Chronic Right-Sided CHF with mild LV Dysfunction -Mild Pulmonary HTN -on Diuretics. Treatment: [facility] MAR: -03/20 po Bumex BID Hod if, SBP <110. Risk Factors: H&P/PN: -67 yrs. of Age -s/p Left Knee Polyexchange, I&D for periprostatic infection -CHF -right-sided w/Mild LV Dysfunction -Pum. HTN -HTN -CKD Thank you, Emilee Bearden RN, REFRIGERATION MECHANIC, CDI. cell: [phone]. Options provided: -- Respond - Create new note now -- Disagree - Not applicable / Not valid Query created by: EMILEE BEARDEN on 03/24/2023 12:45 PM Electronically signed by: EVELYN JOSE MD 03/25/2023 8:15 AM * Evelyn Jose MD - 03/25/2023 8:12 AM EDT [facility] - PROGRESS NOTE Patient Name : Castillo Graham Patient : 1955 Patient Admit Date : 03/19/2023 Admission Diagnosis : Postoperative Medical Comanagement Provider Name : Evelyn Jose MD Date Of Service : 03/25/23 IMPRESSION AND PLAN : This 67 y.o. female is 6 Days Post-Op. I have seen the patient personally today. I have reviewed available labs and imaging results, as documented below in the results. I have reviewed available progress notes from the nursing, physical therapy, and surgical services. Prescription drug management has been provided, as outlined in the impression and plan. Status post Procedure(s): Left knee I & D REVISION KNEE TOTAL A medical consult has been ordered by the surgeon for perioperative management of the patient's chronic medical conditions including the following . . . Hypertension: Chronic condition, stable postoperatively. Prescription drug management accomplished through ordering her diuretic. Blood pressure reviewed. Blood pressure within an acceptable range onmedication. BP Readings from Last 3 Encounters: 03/25/23 138/77 10/06/22 134/75 Chronic right sided heart failure: Noted by history in the patient's cardiology note reviewed in the patient's paper chart. The patient is on diuretic management. Noted to have normal LV function without significant pulmonary hypertension. Ejection fraction preserved. The patient has not exhibited any signs or symptoms of heart failure postoperatively. Obstructive sleep apnea: Stable. Continuous pulse oximetry continues to be used as a monitoring device. Prediabetes: Stable on diabetic diet. DVT prophylaxis deferred to the primary team. Recommend following the current ACCP guidelines. This patient will be considered acceptable for discharge from a medical perspective if the following criteria are met . . . - Oxygen Saturations > 90% on Room Air - Able to void without difficulty - Meets Physical Therapy goals for discharge - Passing Flatus without nausea vomiting or abdominal distention - Cleared for discharge by surgeon - Discharge medication reconciliation completed, defer post discharge management of anticoagulants,DVT prophylaxis, NSAIDs, opiates, and antibiotics to surgical service. Disposition: nursing home facility. Subjective Patient reports pain is currently tolerable; without any issues overnight. REVIEW OF SYSTEMS Cardiovascular: Denies chest pain Respiratory: Denies shortness of breath or cough Gastrointestinal: Denies abdominal pain or nausea/vomiting Genitourinary: Denies urinary retention or incomplete voiding VITALS : Visit Vitals BP 138/77 Pulse 91 Temp 36.8 C (98.2 F) (Temporal) Resp 14 Ht 1.6 m (63 ) Wt 103 kg (226 lb 3.1 oz) SpO2 97% BMI 40.07 kg/m Smoking Status Former BSA 2.04 m PHYSICAL EXAM : General - No acute distress; Alert and conversational Cardiology - RRR, nontachycardic, no edema noted Respiratory - Clear to auscultate bilaterally; without accessory muscle use; No wheezing noted Abdominal - non-tender; soft; without any noted distention Musculoskeletal - No calf tenderness noted on palpation Psychiatric - Appropriate affect, Alert and oriented to person, place, and situation RESULTS : INTAKE/OUTPUT Intake/Output Summary (Last 24 hours) at 03/25/2023 0812 Last data filed at 03/24/2023 1623 Gross per 24 hour Intake 200 ml Output -- Net 200 ml LABS Results from last 7 days Lab Units 03/21/23 0456 03/20/23 0402 03/19/23 1145 WBC AUTO K/mcL 10.8* 11.5* 12.4* HEMOGLOBIN g/dL 11.6* 12.2 12.9 HEMATOCRIT % 36.0 38.9 40.6 PLATELETS K/mcL 300 270 268 LYMPHS PCT AUTO % 15.8* 9.3* 10.3* MONO PCT AUTO % 9.5 5.3 8.1 EOS PCT AUTO % 0.7 0.0 0.6 Results from last 7 days Lab Units 03/21/23 1537 03/21/23 1131 03/21/23 0456 03/21/23 0454 03/20/23 1942 03/20/23 1431 03/20/23 1210 03/20/23 0404 03/20/23 0402 03/19/23 2009 03/19/23 1538 03/19/23 1145 SODIUM mmol/L -- -- 137 -- -- -- -- -- 138 -- -- 140 POTASSIUM mmol/L -- -- 4.6 -- -- -- -- -- 4.9 -- -- 4.4 CHLORIDE mmol/L -- -- 104 -- -- -- -- -- 104 -- -- 104 CO2 mmol/L -- -- 25 -- -- -- -- -- 23 -- -- 27 BUN mg/dL -- -- 22* -- -- -- -- -- 31* -- -- 36* CREATININE mg/dL -- -- 0.92 -- -- -- -- -- 1.03 -- -- 1.10 POCT GLUCOSE mg/dL 112* 124* -- 85 109* 89 106* 116* -- 131* 124* -- GLUCOSE mg/dL -- -- 95 -- -- -- -- -- 106* -- -- 97 EGFR mL/min/1.73m2 -- -- 68 -- -- -- -- -- 60 -- -- 55* No results found for: MG IMAGING XR Knee 1-2 Views Left Final Result Status post left total knee arthroplasty. -------- FINAL REPORT -------- Dictated By: Ania Dumont Dictated Date: 03/20/2023 07:17 Assigned Physician: Ania Dumont Reviewed and Electronically Signed By: Ania Dumont Signed Date: 03/20/2023 07:18 Workstation ID: [id number] Transcribed By: Self Edit Transcribed Date: 03/20/2023 07:17 XR Knee 1-2 Views Left Narrative: EXAM: XR KNEE 1-2 VIEWS LEFT HISTORY: postoperative care COMPARISON: 10/02/2022. TECHNIQUE: Frontal and lateral views of the left knee. FINDINGS: Status post left total knee arthroplasty. Hardware is intact. Alignment is within expected limits. Surgical drain and skin almita are noted. Impression: Status post left total knee arthroplasty. -------- FINAL REPORT -------- Dictated By: Ania Dumont Dictated Date: 03/20/2023 07:17 Assigned Physician: Ania Dumont Reviewed and Electronically Signed By: Ania Dumont Signed Date: 03/20/2023 07:18 Workstation ID: [id number] Transcribed By: Self Edit Transcribed Date: 03/20/2023 07:17 ECHOCARDIOGRAM No results found for this or any previous visit. * Gloria Mohan RN - 03/24/2023 8:53 PM EDT Problem: Cognitive: Goal: Knowledge of Transition Instructions will improve Outcome: Progressing Problem: VTE Prevention: Goal: Will remain free of signs and symptoms of VTE Outcome: Progressing Problem: Activity: Goal: Ability to ambulate will improve Outcome: Progressing Goal: Range of joint motion will be supported Outcome: Progressing Problem: Falls: Goal: (Goal) Patient will experience maximum safety and reduce risk for falls. Outcome: Progressing Goal: Patient will not fall or injure themselves during hospitalization. Outcome: Progressing Problem: Physical Regulation: Goal: Signs and symptoms of infection will decrease Outcome: Progressing Goal: Complications related to the disease process, condition or treatment will be avoided or minimized Outcome: Progressing Goal: Diagnostic test results will improve Outcome: Progressing Problem: Activity: Goal: Mobility will improve Outcome: Progressing Problem: Sensory: Goal: Pain level will improve or be tolerable Outcome: Progressing Goal: Ability to develop a pain control plan will improve Outcome: Progressing Problem: Cognitive: Goal: Expressions of feelings of enhanced comfort will increase Outcome: Progressing Goals: Identify possible barriers to meeting goals/advancing plan of care: Pt to d/c to SNF Stability of the patient: Moderately Stable - Low risk of patient condition declining or worsening End of Shift Summary: pt to d/c to SNF * Meño Candelario RN - 03/24/2023 4:22 PM EDT AMADO received a call from Addi madden [facility] and they received precert. [facility] will [facility] accept the patient tomorrow. Will plan to acquire a repeat covid test in the am. Addi also confirmed the facility will be able to accept the patient on Meropenem. AMADO will send an update to Dr. Irvin REID. will also have the patient coordinate a transport time tomorrow with her son * Meño Candelario RN - 03/24/2023 4:01 PM EDT AMADO received a call from Cindy madden [facility] inquiring possible duration of IV ATB therapy. AMADO informed Cindy that the final determination will be determined per the ID physician. Cindy was informed that it would not be uncommon for the patient to be on IV ATB therapy for approx 6 weeks. Cindy updated this CM that the precert for the SNF is under review and once a determination is reached they will update the requested SNF. AMADO provided an additional update to the patient and her son * Meño Candelario RN - 03/24/2023 3:34 PM EDT AMADO spoke to Rosetta at [facility] and she confirmed the facility is still awaiting the precert from [facility]. Facility does request a repeat covid test day of discharge. CM will update the patient and also plan to complete a HENS and place in the discharge folder. * Amanda Gorman PTA - 03/24/2023 1:37 PM EDT [facility] Physical Therapy Treatment PT Discharge Recommendations: nursing home facility placement Distance Ambulated (ft): 50 Device: Rolling walker L Knee Flexion 0-140: 3-60 Fall prevention education provided including use of call light in hospital, use of appropriate assistive device, safe mobility techniques, and safety measures at home. Continue PT as per POC. Subjective/Objective/Assessment/Plan Patient in bed upon arrival to room. Requesting to use bathroom. Mobility noted below. Returned to bed and completed HEP. All questions answered and needs met at this time. Continue as per PT POC until patient is d/c from [facility]. 03/24/23 1337 General Family/Caregiver Present No PT Time Calculation PT Start Time 1337 PT Stop Time 1353 PT Time Calculation (min) 16 min Precautions Medical Precautions Fall Risk Safety Interventions Call miller within reach;Gait belt LLE Weight Bearing Status As Tolerated Cognition Arousal/Alertness Appropriate responses to stimuli Orientation Level Oriented X4 Following Commands Follows all commands and directions without difficulty Cognition Comments 0 Bed Mobility Lying to Sitting Assistance Supervision or touching assistance Transfers Sit to Stand Assistance Supervision or touching assistance Toilet Transfer Assistance Contact guard Ambulation Walking Assistance Supervision or touching assistance Device Rolling walker Distance Ambulated (ft) 50 AROM LLE (degrees) L Knee Flexion 0-140 3-60 Procedures Procedures Therapeutic Exercise;Gait Training Gait Training Gait Training Time Entry 6 Gait Training Activity 1 gait training Therapeutic Exercise Therapeutic Exercise Time Entry 10 Therapeutic Exercise Activity 1 HEP x 10 PT Assessment Prognosis Good Evaluation/Treatment Tolerance Patient tolerated treatment well Medical Staff Made Aware Yes Comments MST notified that pt has used bathroom Plan PT Plan Skilled PT PT Discharge Recommendations nursing home facility placement Goals/Education Encounter Problems Encounter Problems (Active) Template: Physical Therapy Problem: PT Short Term Goals Dates: Start: 03/19/23 Goal: Pt will perform bed mobility with CGA Dates: Start: 03/19/23 Expected End: 03/20/23 Outcomes Date/Time User Outcome 03/24/23 1606 Amanda Gorman PTA Progressing Goal: Pt will perform transfers with SBA/FWW Dates: Start: 03/19/23 Expected End: 03/20/23 Outcomes Date/Time User Outcome 03/24/23 1606 Amanda Gorman PTA Progressing Goal: Pt will ambulate x150 ft with SBA/FWW Dates: Start: 03/19/23 Expected End: 03/20/23 Outcomes Date/Time User Outcome 03/24/23 1606 Amanda Gorman PTA Progressing Goal: Pt will ascend/descend stairs with CGA/LRAD Dates: Start: 03/19/23 Expected End: 03/20/23 Outcomes Date/Time User Outcome 03/24/23 1210 Charline Loera RN Progressing Goal: Pt will indicate understanding of knee protocol HEP to begin POD1 Dates: Start: 03/19/23 Expected End: 03/20/23 Outcomes Date/Time User Outcome 03/24/23 1606 Amanda Gorman PTA Progressing Encounter Problems (Resolved) There are no resolved problems. Education Documentation Home Exercise Program, taught by Amanda Gorman PTA at 03/24/2023 4:07 PM. Learner: Patient Readiness: Acceptance Method: Explanation, Demonstration, Teach-back Response: Verbalizes Understanding, Demonstrated Understanding, Able to teach back information Mobility Training, taught by Amanda Gorman PTA at 03/24/2023 4:07 PM. Learner: Patient Readiness: Acceptance Method: Explanation, Demonstration, Teach-back Response: Verbalizes Understanding, Demonstrated Understanding, Able to teach back information Mobility Training, taught by Amanda Gorman PTA at 03/24/2023 12:31 PM. Learner: Patient Readiness: Acceptance Method: Explanation, Demonstration Response: Verbalizes Understanding Education Comments No comments found. * Amanda Gorman PTA - 03/24/2023 11:13 AM EDT [facility] Physical Therapy Treatment PT Discharge Recommendations: nursing home facility placement Distance Ambulated (ft): 50 Device: Rolling walker L Knee Flexion 0-140: 50 (in sitting) Fall prevention education provided including use of call light in hospital, use of appropriate assistive device, safe mobility techniques, and safety measures at home. Continue PT as per POC. Subjective/Objective/Assessment/Plan Patient in bed upon arrival to room. Agreeable tot treatment. Mobility noted below. All questions answered and needs met at this time. Continue as per PT POC until patient is d/c from [facility]. 03/24/23 1113 General Family/Caregiver Present No PT Time Calculation PT Start Time 1113 PT Stop Time 1137 PT Time Calculation (min) 24 min Precautions Medical Precautions Fall Risk Safety Interventions Call miller within reach;Gait belt LLE Weight Bearing Status As Tolerated Cognition Arousal/Alertness Appropriate responses to stimuli Orientation Level Oriented X4 Following Commands Follows all commands and directions without difficulty Bed Mobility Lying to Sitting Assistance Supervision or touching assistance (UE to lift left LE) Transfers Sit to Stand Assistance Supervision or touching assistance Ambulation Walking Assistance Supervision or touching assistance Device Rolling walker Distance Ambulated (ft) 50 AROM LLE (degrees) L Knee Flexion 0-140 50 (in sitting) Procedures Procedures Gait Training;Therapeutic Activity Gait Training Gait Training Time Entry 14 Gait Training Activity 1 gait traiing Therapeutic Activity Therapeutic Activity Time Entry 10 Therapeutic Activity 1 bed mobility Therapeutic Activity 2 transfer training PT Assessment Prognosis Good Evaluation/Treatment Tolerance Patient tolerated treatment well Medical Staff Made Aware Yes Comments RN clearewd for treatment Plan PT Plan Skilled PT PT Discharge Recommendations nursing home facility placement Goals/Education Encounter Problems Encounter Problems (Active) Template: Physical Therapy Problem: PT Short Term Goals Dates: Start: 03/19/23 Goal: Pt will perform bed mobility with CGA Dates: Start: 03/19/23 Expected End: 03/20/23 Outcomes Date/Time User Outcome 03/24/23 1226 Amanda Gorman PTA Progressing Goal: Pt will perform transfers with SBA/FWW Dates: Start: 03/19/23 Expected End: 03/20/23 Outcomes Date/Time User Outcome 03/24/23 1226 Amanda Gorman PTA Progressing Goal: Pt will ambulate x150 ft with SBA/FWW Dates: Start: 03/19/23 Expected End: 03/20/23 Outcomes Date/Time User Outcome 03/24/23 1226 Amanda Gorman PTA Progressing Goal: Pt will ascend/descend stairs with CGA/LRAD Dates: Start: 03/19/23 Expected End: 03/20/23 Outcomes Date/Time User Outcome 03/24/23 1210 Charline Loera RN Progressing Goal: Pt will indicate understanding of knee protocol HEP to begin POD1 Dates: Start: 03/19/23 Expected End: 03/20/23 Outcomes Date/Time User Outcome 03/24/23 1210 Charline Loera RN Progressing Encounter Problems (Resolved) There are no resolved problems. Education Documentation Mobility Training, taught by Amanda Gorman PTA at 03/24/2023 12:31 PM. Learner: Patient Readiness: Acceptance Method: Explanation, Demonstration Response: Verbalizes Understanding Education Comments No comments found. * Meño Candelario RN - 03/24/2023 10:00 AM EDT Patient aware that precert is pending. Family plans to provide transportation at time of discharge.CM will continue to follow * Evelyn Jose MD - 03/24/2023 7:27 AM EDT [facility] Patient Name : Castillo Graham Patient : 1955 Patient Admit Date : 03/19/2023 Admission Diagnosis : Postoperative Medical Comanagement Provider Name : Evelyn Jose MD Date Of Service : 03/24/23 IMPRESSION AND PLAN : This 67 y.o. female is 5 Days Post-Op. I have seen the patient personally today. I have reviewed available labs and imaging results, as documented below in the results. I have reviewed available progress notes from the nursing, physical therapy, and surgical services. Prescription drug management has been provided, as outlined in the impression and plan. Status post Procedure(s): Left knee I & D REVISION KNEE TOTAL A medical consult has been ordered by the surgeon for perioperative management of the patient's chronic medical conditions including the following . . . Hypertension: Chronic condition, stable postoperatively. Prescription drug management accomplished through ordering bumetanide. Blood pressure reviewed. Blood pressure within an acceptable range on medication. BP Readings from Last 3 Encounters: 03/24/23 115/65 10/06/22 134/75 JEREMY: Being followed on the facility protocol. No issues reported overnight. Morbid obesity with a BMI of 40.07. On Xarelto for DVT prophylaxis. Prediabetes: Available Accu-Cheks reviewed and stable. 0 Lab Value Date/Time GLUCOSE 112 (H) 03/21/2023 1537 GLUCOSE 124 (H) 03/21/2023 1131 GLUCOSE 95 03/21/2023 0456 GLUCOSE 85 03/21/2023 0454 GLUCOSE 109 (H) 03/20/2023 1942 DVT prophylaxis deferred to the primary team. Recommend following the current ACCP guidelines. This patient will be considered acceptable for discharge from a medical perspective if the following criteria are met . . . - Oxygen Saturations > 90% on Room Air - Able to void without difficulty - Meets Physical Therapy goals for discharge - Passing Flatus without nausea vomiting or abdominal distention - Cleared for discharge by surgeon - Discharge medication reconciliation completed, defer post discharge management of anticoagulants,DVT prophylaxis, NSAIDs, opiates, and antibiotics to surgical service. Disposition: Planning to go to a alf facility. Subjective Patient reports pain is currently tolerable and stable postoperatively. REVIEW OF SYSTEMS Cardiovascular: Denies chest pain Respiratory: Denies shortness of breath or cough Gastrointestinal: Denies abdominal pain or nausea/vomiting Genitourinary: Denies urinary retention or incomplete voiding VITALS : Visit Vitals BP 115/65 (BP Location: Left arm, Patient Position: Lying) Pulse 70 Temp 36.5 C (97.7 F) (Temporal) Resp 16 Ht 1.6 m (63 ) Wt 103 kg (226 lb 3.1 oz) SpO2 96% BMI 40.07 kg/m Smoking Status Former BSA 2.04 m PHYSICAL EXAM : General - No acute distress; Alert and conversational Cardiology - Regular rate and rhythm; no appreciated murmurs; no peripheral edema Respiratory - CTA, normal respiratory effort, no wheezing CTA on inspiration and exhalation, normalrespiratory effort Abdominal - remains non-tender, soft, no noted distention Musculoskeletal - No calf tenderness noted on palpation Psychiatric - Appropriate affect, Alert and oriented to person, place, and situation RESULTS : INTAKE/OUTPUT Intake/Output Summary (Last 24 hours) at 03/24/2023 07 Last data filed at 03/23/20232010 Gross per 24 hour Intake -- Output 1 ml Net -1 ml LABS Results from last 7 days Lab Units 03/21/23 0456 03/20/23 0402 03/19/23 1145 WBC AUTO K/mcL 10.8* 11.5* 12.4* HEMOGLOBIN g/dL 11.6* 12.2 12.9 HEMATOCRIT % 36.0 38.9 40.6 PLATELETS K/mcL 300 270 268 LYMPHS PCT AUTO % 15.8* 9.3* 10.3* MONO PCT AUTO % 9.5 5.3 8.1 EOS PCT AUTO % 0.7 0.0 0.6 Results from last 7 days Lab Units 03/21/23 1537 03/21/23 1131 03/21/23 0456 03/21/23 0454 03/20/23 1942 03/20/23 1431 03/20/23 1210 03/20/23 0404 03/20/23 0402 03/19/23200803/19/23 1538 03/19/23 1145 SODIUM mmol/L -- -- 137 -- -- -- -- -- 138 -- -- 140 POTASSIUM mmol/L -- -- 4.6 -- -- -- -- -- 4.9 -- -- 4.4 CHLORIDE mmol/L -- -- 104 -- -- -- -- -- 104 -- -- 104 CO2 mmol/L -- -- 25 -- -- -- -- -- 23 -- -- 27 BUN mg/dL -- -- 22* -- -- -- -- -- 31* -- -- 36* CREATININE mg/dL -- -- 0.92 -- -- -- -- -- 1.03 -- -- 1.10 POCT GLUCOSE mg/dL 112* 124* -- 85 109* 89 106* 116* -- 131* 124* -- GLUCOSE mg/dL -- -- 95 -- -- -- -- -- 106* -- -- 97 EGFR mL/min/1.73m2 -- -- 68 -- -- -- -- -- 60 -- -- 55* No results found for: MG IMAGING XR Knee 1-2 Views Left Final Result Status post left total knee arthroplasty. -------- FINAL REPORT -------- Dictated By: Ania Dumont Dictated Date: 03/20/2023 07:17 Assigned Physician: Ania Dumont Reviewed and Electronically Signed By: Ania Dumont Signed Date: 03/20/2023 07:18 Workstation ID: [id number] Transcribed By: Self Edit Transcribed Date: 03/20/2023 07:17 XR Knee 1-2 Views Left Narrative: EXAM: XR KNEE 1-2 VIEWS LEFT HISTORY: postoperative care COMPARISON: 10/02/2022. TECHNIQUE: Frontal and lateral views of the left knee. FINDINGS: Status post left total knee arthroplasty. Hardware is intact. Alignment is within expected limits. Surgical drain and skin almita are noted. Impression: Status post left total knee arthroplasty. -------- FINAL REPORT -------- Dictated By: Ania Dumont Dictated Date: 03/20/2023 07:17 Assigned Physician: Ania Dumont Reviewed and Electronically Signed By: Ania Dumont Signed Date: 03/20/2023 07:18 Workstation ID: [id number] Transcribed By: Self Edit Transcribed Date: 03/20/2023 07:17 ECHOCARDIOGRAM No results found for this or any previous visit. * Julia Meredith RN - 03/23/2023 1:52 PM EDT CM into see patient- updated paient at bedside that precert is still pending with insurance. Questions/concerns addressed. Emotional support provided to patient at bedside. * Nik Cates RN - 03/23/2023 1:24 PM EDT Call received from Addi in admissions at [facility]. Precert is still pending. Addi inquired if pt is wearing a CPAP. Per RT-pt is non-compliant and does not wear CPAP. * Castillo Mccabe, PT - 03/23/2023 12:37 PM EDT [facility] Physical Therapy Treatment PT Discharge Recommendations: nursing home facility placement Distance Ambulated (ft): 50 Device: Rolling walker L Knee Flexion 0-140: 0-58 Fall prevention education provided including use of call light in hospital, use of appropriate assistive device, safe mobility techniques, and safety measures at home. Continue PT as per POC. Subjective/Objective/Assessment/Plan Patient agreeable to session. Patient now able to perform SLR in very small ROM (approximately 2 inches off of bed). Patient with (+) void and able to walk up to 50ft. Patient left sitting EOB with call light in reach, needs met, and RN updated. 03/23/23 1237 General Family/Caregiver Present No PT Time Calculation PT Start Time 1237 PT Stop Time 1307 PT Time Calculation (min) 30 min Precautions Medical Precautions Fall Risk LLE Weight Bearing Status As Tolerated Pain Assessment Pain Assessment 0-10 Pain Score 8 (Reports ice is helping ) Pain Type Surgical pain Pain Location Knee Pain Orientation Left Cognition Orientation Level Oriented X4 Static Sitting Balance Static Sitting-Level of Assistance Supervision or touching assistance Dynamic Sitting Balance Dynamic Sitting-Level of Assistance Supervision or touching assistance Static Standing Balance Static Standing-Level of Assistance Supervision or touching assistance Static Standing-Balance Support Right upper extremity supported;Left upper extremity supported Dynamic Standing Balance Dynamic Standing-Level of Assistance Supervision or touching assistance Dynamic Standing-Balance Support Right upper extremity supported;Left upper extremity supported Dynamic Standing-Comments Support on w/w Bed Mobility Lying to Sitting Assistance Supervision or touching assistance (Uses UE to lift (L) LE) Transfers Sit to Stand Assistance Supervision or touching assistance Ambulation Walking Assistance Supervision or touching assistance Device Rolling walker Distance Ambulated (ft) 50 AROM LLE (degrees) L Knee Flexion 0-140 0-58 Gait Training Gait Training Time Entry 16 Gait Training Activity 1 Gait training with w/w Therapeutic Exercise Therapeutic Exercise Time Entry 14 Therapeutic Exercise Activity 1 TKA ther ex x 10 reps Therapeutic Exercise Activity 2 very small ROM for SLR Other Activity Other Activity 1 (+) void Other Activity 2 Bed mobility PT Assessment PT Assessment/ Barriers to discharge Decreased strength;Decreased range of motion;Impaired gait;Impaired balance;Decreased mobility;Pain Prognosis Good Evaluation/Treatment Tolerance Patient tolerated treatment well Medical Staff Made Aware Yes Comments MARIBELL John and LUIS Torrez Goals/Education Encounter Problems Encounter Problems (Active) Template: Physical Therapy Problem: PT Short Term Goals Dates: Start: 03/19/23 Goal: Pt will perform bed mobility with CGA Dates: Start: 03/19/23 Expected End: 03/20/23 Outcomes Date/Time User Outcome 03/23/23 1320 Castillo Mccabe PT Progressing Goal: Pt will perform transfers with SBA/FWW Dates: Start: 03/19/23 Expected End: 03/20/23 Outcomes Date/Time User Outcome 03/23/23 1320 Castillo Mccaeb PT Progressing Goal: Pt will ambulate x150 ft with SBA/FWW Dates: Start: 03/19/23 Expected End: 03/20/23 Outcomes Date/Time User Outcome 03/23/23 1320 Castillo Mccabe PT Progressing Goal: Pt will ascend/descend stairs with CGA/LRAD Dates: Start: 03/19/23 Expected End: 03/20/23 Outcomes Date/Time User Outcome 03/22/23 1427 Cindy Aguilera RN Progressing Goal: Pt will indicate understanding of knee protocol HEP to begin POD1 Dates: Start: 03/19/23 Expected End: 03/20/23 Outcomes Date/Time User Outcome 03/23/23 1320 Castillo Mccabe PT Progressing Encounter Problems (Resolved) There are no resolved problems. Education Documentation Home Exercise Program, taught by Castillo Mccabe PT at 03/23/2023 1:21 PM. Learner: Patient Readiness: Acceptance Method: Explanation, Demonstration Response: Verbalizes Understanding Comment: FUnctional mobility and TKA ther ex. Mobility Training, taught by Castillo Mccabe PT at 03/23/2023 1:21 PM. Learner: Patient Readiness: Acceptance Method: Explanation, Demonstration Response: Verbalizes Understanding Comment: FUnctional mobility and TKA ther ex. Home Exercise Program, taught by Castillo Mccabe PT at 03/23/2023 9:52 AM. Learner: Patient Readiness: Acceptance Method: Explanation, Demonstration Response: Demonstrated Understanding Comment: TKA ther ex and functional mobility. Mobility Training, taught by Castillo Mccabe PT at 03/23/2023 9:52 AM. Learner: Patient Readiness: Acceptance Method: Explanation, Demonstration Response: Demonstrated Understanding Comment: TKA ther ex and functional mobility. Education Comments No comments found. * Julia Meredith RN - 03/23/2023 9:39 AM EDT CM made OB call to [facility]-spoke to Addi in admissions- precert is still pending at this time. She has forwarded updated notes and will be in touch as soon as she hears anything. CM will continue to follow. * Castillo Mccabe PT - 03/23/2023 9:07 AM EDT [facility] Physical Therapy Treatment PT Discharge Recommendations: nursing home facility placement Distance Ambulated (ft): 45 Device: Rolling walker L Knee Flexion 0-140: 0-57 Fall prevention education provided including use of call light in hospital, use of appropriate assistive device, safe mobility techniques, and safety measures at home. Continue PT as per POC. Subjective/Objective/Assessment/Plan RN cleared session. Patient finishing breakfast and agreeable to session. Patient remains unable toperform (L) SLR without assist. Uses Ue's to assist (L) LE out of bed. (+) void. Patient left sitting in bedside chair with call light in reach, needs met and RN updated. 03/23/23 09 General Family/Caregiver Present No PT Time Calculation PT Start Time 09 PT Stop Time 0943 PT Time Calculation (min) 36 min Precautions LLE Weight Bearing Status As Tolerated Pain Assessment Pain Assessment 0-10 Pain Score 8 Pain Type Surgical pain Pain Location Knee Pain Orientation Left Cognition Orientation Level Oriented X4 Bed Mobility Lying to Sitting Assistance Supervision or touching assistance (Uses her hands to assist (L) LE out of bed) Transfers Sit to Stand Assistance Supervision or touching assistance Ambulation Walking Assistance Supervision or touching assistance Device Rolling walker Distance Ambulated (ft) 45 AROM LLE (degrees) L Knee Flexion 0-140 0-57 Procedures Procedures Gait Training;Therapeutic Exercise Gait Training Gait Training Time Entry 15 Gait Training Activity 1 Gait trianing with w/w Therapeutic Activity Therapeutic Activity Time Entry 6 Therapeutic Activity 1 (+) void Therapeutic Activity 2 Transfers Therapeutic Exercise Therapeutic Exercise Time Entry 15 Therapeutic Exercise Activity 1 TKA handout x10 repetitions Therapeutic Exercise Activity 2 AAROM for SLR - patient able to perform independently PT Assessment PT Assessment/ Barriers to discharge Decreased strength;Decreased range of motion;Pain;Impaired gait;Decreased mobility Prognosis Good Evaluation/Treatment Tolerance Patient tolerated treatment well Medical Staff Made Aware Yes Comments MARIBELL John Goals/Education Encounter Problems Encounter Problems (Active) Template: Physical Therapy Problem: PT Short Term Goals Dates: Start: 03/19/23 Goal: Pt will perform bed mobility with CGA Dates: Start: 03/19/23 Expected End: 03/20/23 Outcomes Date/Time User Outcome 03/23/2351 Castillo Mccabe PT Progressing Goal: Pt will perform transfers with SBA/FWW Dates: Start: 03/19/23 Expected End: 03/20/23 Outcomes Date/Time User Outcome 03/23/2351 Castillo Mccabe PT Progressing Goal: Pt will ambulate x150 ft with SBA/FWW Dates: Start: 03/19/23 Expected End: 03/20/23 Outcomes Date/Time User Outcome 03/23/2351 Castillo Mccabe PT Progressing Goal: Pt will ascend/descend stairs with CGA/LRAD Dates: Start: 03/19/23 Expected End: 03/20/23 Outcomes Date/Time User Outcome 03/22/23 1427 Cindy Aguilera RN Progressing Goal: Pt will indicate understanding of knee protocol HEP to begin POD1 Dates: Start: 03/19/23 Expected End: 03/20/23 Outcomes Date/Time User Outcome 03/23/23 0951 Castillo Mccabe PT Progressing Encounter Problems (Resolved) There are no resolved problems. Education Documentation Home Exercise Program, taught by Castillo Mccabe PT at 03/23/2023 9:52 AM. Learner: Patient Readiness: Acceptance Method: Explanation, Demonstration Response: Demonstrated Understanding Comment: TKA ther ex and functional mobility. Mobility Training, taught by Castillo Mccabe PT at 03/23/2023 9:52 AM. Learner: Patient Readiness: Acceptance Method: Explanation, Demonstration Response: Demonstrated Understanding Comment: TKA ther ex and functional mobility. Education Comments No comments found. * Dora Cha RN - 03/23/2023 8:46 AM EDT Problem: Coping: Goal: Verbalizations of alleviation of anxiety will increase Outcome: Progressing Goals: Stability of the patient: Moderately Stable - Low risk of patient condition declining or worsening End of Shift Summary: * Julia Meredith RN - 03/23/2023 8:01 AM EDT CM rounded with Dr. Santos. CM introduced self and role. Patient whiteboard updated. Patient tolerating oxycodone for pain. Anticoagulant: Xarelto 10 mg QD. PT progress reviewed. No incisional issuesnoted. Patient asked for prevena dressing to be removed. Dr. Santos explained plan to patient- prevena dressing to remain in place until 03/27/2023- with removal in office. Patient concerned that she may not have transportation to appointment on 03/27/2023- Dr. Santos explained that removal in office is their preference- but also updated that an optifoam dressing will be in folder with instructions- patient to update office if she is unable to get transportation and then prevena would need to stay in place until battery and facility could place optifoam dressing. Patient verbalizes understanding and will call the office at discharge and try to schedule appointment- if it doesn't work she will let office know and follow optifoam instructions. CM will place instructions in discharge folder. New RX written for Gabapentin for SNF admission- CM placed in discharge folder. Patient aware thatnew clinicals have been sent to facility and we are still awaiting insurance precert. CM will follow. * Bobby Santos MD - 03/23/2023 7:45 AM EDT [facility] Progress Note 4 Days Post-Op: * Left knee I & D * REVISION KNEE TOTAL LOS: 2 days Subjective: Patient doing well.Pain is tolerable with current regimen. Tolerating diet without nausea or vomiting. Awaiting precert. Cx notable for Pasteurella Multocida, on meropenem. Objective: Vital signs (most recent): Blood pressure 99/69, pulse 74, temperature 36.7 C (98 F), temperature source Temporal, resp. rate 16, height 1.6 m (63 ), weight 103 kg (226 lb 3.1 oz), SpO2 99 %. : Last Recorded Vitals: Blood pressure 99/69, pulse 74, temperature 36.7 C (98 F), temperature source Temporal, resp. rate 16, height 1.6 m (63 ), weight 103 kg (226 lb 3.1 oz), SpO2 99 %. Gen: comfortable, NAD Focused Musculoskeletal Exam: Surgical incision covered by wound vac. No output noted in Prevena. No surrounding erythema or blisters noted. No drainage or swelling. Neurovascularly intact in the operative extremity. LABS: Lab Results Component Value Date WBC 10.8 (H) 03/21/2023 HGB 11.6 (L) 03/21/2023 HCT 36.0 03/21/2023 MCV 88.0 03/21/2023 PLT 300 03/21/2023 Lab Results Component Value Date GLUCOSE 112 (H) 03/21/2023 CALCIUM 9.1 03/21/2023 NA 137 03/21/2023 K 4.6 03/21/2023 CO2 25 03/21/2023 CL 104 03/21/2023 BUN 22 (H) 03/21/2023 CREATININE 0.92 03/21/2023 No results found for: INR, PROTIME No results found for: PTT Assessment & Plan 67 y.o. female 4 Days Post-Op status post * Left knee I & D * REVISION KNEE TOTAL. - WBAT on the operative extremity -Xarelto 10mg daily x28 days for DVT ppx as she reports an allergy to ASA - PT - Prevena intact, no output noted. - PICC intact, patient receiving Meropenam per ID, appreciate assistance. - Intraoperative cultures notable for Pasteurella Multocida - Follow-up in clinic in on 03/27 for Prevena removal and 3 weeks for staple removal - Plan for discharge to Subacute Rehab Facility ([facility] or [facility]) when cleared by PT and medically stable * Julia Meredith RN - 03/23/2023 7:26 AM EDT CM has sent updated PT and progress notes to [facility] via manual efax- [phone]-[phone] note checking on status of precert. CM will continue to follow. * Evelyn Jose MD - 03/23/2023 6:40 AM EDT [facility] - PROGRESS [facility] Patient Name : Castillo Graham Patient : 1955 Patient Admit Date : 03/19/2023 Admission Diagnosis : Postoperative Medical Comanagement Provider Name : Evelyn Jose MD Date Of Service : 03/23/23 IMPRESSION AND PLAN : This 67 y.o. female is 4 Days Post-Op. I have seen the patient personally today. I have reviewed available labs and imaging results, as documented below in the results. I have reviewed available progress notes from the nursing, physical therapy, and surgical services. Prescription drug management has been provided, as outlined in the impression and plan. Status post Procedure(s): Left knee I & D REVISION KNEE TOTAL. Infectious disease following and managing antibiotics. A medical consult has been ordered by the surgeon for perioperative management of the patient's chronic medical conditions including the following . . . Hypertension: Chronic condition, stable postoperatively. Blood pressure reviewed. Blood pressure within an acceptable range on medication. The patient's diuretic is currently ordered twice a day. BP Readings from Last 3 Encounters: 03/23/23 99/69 10/06/22 134/75 Chronic kidney disease: A stable, chronic illness, without exacerbation or progression. Creatinine has been within normal limits. Lab Results Component Value Date CREATININE 0.92 03/21/2023 CREATININE 1.03 03/20/2023 CREATININE 1.10 03/19/2023 GERD: Remained stable on pantoprazole. Asthma: No complaints of any shortness of breath or wheezing this morning on rounds. Continue Symbicort. Prediabetes: Utilizing Mounjaro weekly. DVT prophylaxis deferred to the primary team. Recommend following the current ACCP guidelines. Patient currently on Xarelto. This patient will be considered acceptable for discharge from a medical perspective if the following criteria are met . . . - Oxygen Saturations > 90% on Room Air - Able to void without difficulty - Meets Physical Therapy goals for discharge - Passing Flatus without nausea vomiting or abdominal distention - Cleared for discharge by surgeon - Discharge medication reconciliation completed, defer post discharge management of anticoagulants,DVT prophylaxis, NSAIDs, opiates, and antibiotics to surgical service. Disposition: Patient planning to go to a alf facility. Subjective Patient reports pain is currently tolerable being controlled with narcotic pain medication. REVIEW OF SYSTEMS Cardiovascular: Denies chest pain Respiratory: Denies shortness of breath or cough Gastrointestinal: Denies abdominal pain or nausea/vomiting Genitourinary: Denies urinary retention or incomplete voiding VITALS : Visit Vitals BP 99/69 (BP Location: Left arm, Patient Position: Lying) Pulse 74 Temp 36.7 C (98 F) (Temporal) Resp 16 Ht 1.6 m (63 ) Wt 103 kg (226 lb 3.1 oz) SpO2 99% BMI 40.07 kg/m Smoking Status Former BSA 2.04 m PHYSICAL EXAM : General - No acute distress; Alert and conversational Cardiology - Regular rhythm, no tachycardia; No edema Respiratory - Clear to auscultate bilaterally; No accessory respiratory muscle use noted; No wheezing Abdominal - Non-tender to palpation; nondistended Musculoskeletal - No calf tenderness noted on palpation Psychiatric - Appropriate affect, Alert and oriented to person, place, and situation RESULTS : INTAKE/OUTPUT No intake or output data in the 24 hours ending 03/23/23 0640 LABS Results from last 7 days Lab Units 03/21/23 0456 03/20/2340103/19/23 1145 WBC AUTO K/mcL 10.8* 11.5* 12.4* HEMOGLOBIN g/dL 11.6* 12.2 12.9 HEMATOCRIT % 36.0 38.9 40.6 PLATELETS K/mcL 300 270 268 LYMPHS PCT AUTO % 15.8* 9.3* 10.3* MONO PCT AUTO % 9.5 5.3 8.1 EOS PCT AUTO % 0.7 0.0 0.6 Results from last 7 days Lab Units 03/21/23 1537 03/21/23 1131 03/21/23 0456 03/21/23 0454 03/20/23 1942 03/20/23 1431 03/20/23 1210 03/20/23 0404 03/20/232 03/19/23200803/19/23 1538 03/19/23 1145 SODIUM mmol/L -- -- 137 -- -- -- -- -- 138 -- -- 140 POTASSIUM mmol/L -- -- 4.6 -- -- -- -- -- 4.9 -- -- 4.4 CHLORIDE mmol/L -- -- 104 -- -- -- -- -- 104 -- -- 104 CO2 mmol/L -- -- 25 -- -- -- -- -- 23 -- -- 27 BUN mg/dL -- -- 22* -- -- -- -- -- 31* -- -- 36* CREATININE mg/dL -- -- 0.92 -- -- -- -- -- 1.03 -- -- 1.10 POCT GLUCOSE mg/dL 112* 124* -- 85 109* 89 106* 116* -- 131* 124* -- GLUCOSE mg/dL -- -- 95 -- -- -- -- -- 106* -- -- 97 EGFR mL/min/1.73m2 -- -- 68 -- -- -- -- -- 60 -- -- 55* No results found for: MG IMAGING XR Knee 1-2 Views Left Final Result Status post left total knee arthroplasty. -------- FINAL REPORT -------- Dictated By: Ania Dumont Dictated Date: 03/20/2023 07:17 Assigned Physician: Ania Dumont Reviewed and Electronically Signed By: Ania Dumont Signed Date: 03/20/2023 07:18 Workstation ID: [id number] Transcribed By: Self Edit Transcribed Date: 03/20/2023 07:17 XR Knee 1-2 Views Left Narrative: EXAM: XR KNEE 1-2 VIEWS LEFT HISTORY: postoperative care COMPARISON: 10/02/2022. TECHNIQUE: Frontal and lateral views of the left knee. FINDINGS: Status post left total knee arthroplasty. Hardware is intact. Alignment is within expected limits. Surgical drain and skin almita are noted. Impression: Status post left total knee arthroplasty. -------- FINAL REPORT -------- Dictated By: Ania Dumont Dictated Date: 03/20/2023 07:17 Assigned Physician: Ania Dumont Reviewed and Electronically Signed By: Ania Dumont Signed Date: 03/20/2023 07:18 Workstation ID: [id number] Transcribed By: Self Edit Transcribed Date: 03/20/2023 07:17 ECHOCARDIOGRAM No results found for this or any previous visit. * Kendal Wong RN - 03/22/2023 9:56 PM EDT Problem: VTE Prevention: Goal: Will remain free of signs and symptoms of VTE Outcome: Progressing Problem: Activity: Goal: Ability to ambulate will improve Outcome: Progressing Goal: Range of joint motion will be supported Outcome: Progressing Problem: Falls: Goal: (Goal) Patient will experience maximum safety and reduce risk for falls. Outcome: Progressing Goal: Patient will not fall or injure themselves during hospitalization. Outcome: Progressing Problem: Physical Regulation: Goal: Signs and symptoms of infection will decrease Outcome: Progressing Goal: Complications related to the disease process, condition or treatment will be avoided or minimized Outcome: Progressing Goal: Diagnostic test results will improve Outcome: Progressing Problem: Activity: Goal: Mobility will improve Outcome: Progressing Problem: Health Behavior: Goal: Patient Specific Outcome Outcome: Progressing Goal: Patient Specific Outcome Outcome: Progressing Goal: Patient Specific Outcome Outcome: Progressing Problem: Sensory: Goal: Pain level will improve or be tolerable Outcome: Progressing Goal: Ability to develop a pain control plan will improve Outcome: Progressing Problem: Cognitive: Goal: Expressions of feelings of enhanced comfort will increase Outcome: Progressing Goals: Identify possible barriers to meeting goals/advancing plan of care: SNF precert Stability of the patient: Moderately Stable - Low risk of patient condition declining or worsening End of Shift Summary: progressing towards goals for discharge. Awaiting SNF precert. * Aryan Bryan MD - 03/22/2023 12:04 PM EDT Images from the original note were not included. INFECTIOUS DISEASES DAILY PROGRESS NOTE Patient Name: Castillo Graham MR #: [id number] Hospital Day: 4 Assessment and Plan: 1. Left knee: Stable on antibiotic medication. Intraoperative cultures pending. 2. Leukocytosis: Improving. 3. Disposition: Anticipate discharge with IV therapy, hoping for placement by tomorrow. Aryan Bryan MD Infectious Diseases Temp (24hrs), Av.7 C (98 F), Min:36.4 C (97.6 F), Max:36.9 C (98.4 F) Results from last 7 days Lab Units 03/21/23 0456 03/20/23 0402 03/19/23 1145 WBC AUTO K/mcL 10.8* 11.5* 12.4* PLATELETS K/mcL 300 270 268 Results from last 7 days Lab Units 03/21/23 0456 03/20/23 0402 03/19/23 1145 CREATININE mg/dL 0.92 1.03 1.10 Anti-infectives (From admission, onward) Start Dose/Rate Route Frequency Ordered Stop 03/20/23 1700 meropenem (MERREM) 1 g in sodium chloride 0.9 % 100 mL IVPB - MBP 1 g 200 mL/hr over 30 Minutes intravenous Every 8 hours 03/20/23 1603 03/23/23 1704 Subjective/Objective: Comfortable Review of Systems: I have evaluated for the presence of nausea, vomiting, diarrhea, or rash, or IV site issues by personally discussing these with the patient. If the patient is unable, I have reviewed these with either the nurse or the electronic medical record. Pertinent findings can be found in impression and plan. Physical Examination: Visit Vitals BP 116/72 Pulse 81 Temp 36.9 C (98.4 F) Resp 16 Ht 1.6 m (63 ) Wt 103 kg (226 lb 3.1 oz) SpO2 99% BMI 40.07 kg/m Smoking Status Former BSA 2.04 m GENERAL: Comfortable, in no distress HEENT: symmetric, OP moist, no lesions NECK: Supple LUNGS: Breathing is unlabored, clear HEART: regular ABDOMEN: soft, non tender, BS normal EXTREMITY: minimal edema MENTAL STATUS: comfortable SKIN: No lesions noted WOUNDS: LINES: uncomplicated Pertinent deviations from examination above may be mentioned in the impression and plan. Results/Medications Reviewed: Current Facility-Administered Medications Medication Dose Route Frequency Provider Last Rate Last Admin acetaminophen (TYLENOL) tablet 650 mg 650 mg oral q6h PRN Fredis Squires MD acetaminophen (TYLENOL) tablet 975 mg 975 mg oral q8h Fredis Squires MD 975 mg at 03/22/23 1430 albuterol 2.5 mg /3 mL (0.083 %) nebulizer solution 2.5 mg 2.5 mg nebulization q6h PRN Fredis Squires MD allopurinoL (ZYLOPRIM) tablet 200 mg 200 mg oral Daily Fredis Squires MD 200 mg at 03/22/23 1004 aluminum-magnesium hydroxide-simethicone (MAALOX) 200-200-20 mg/5 mL suspension 30 mL 30 mL oral 4xdaily PRN Fredis Squires MD bethanechol (URECHOLINE) tablet 25 mg 25 mg oral TID PRN Fredis Squires MD bisacodyL (DULCOLAX) suppository 10 mg 10 mg rectal Daily PRN Fredis Squires MD budesonide-formoteroL (SYMBICORT) 160-4.5 mcg/actuation inhaler 2 puff 2 puff inhalation BID Fredis Patterson MD 2 puff at 03/22/23 0749 bumetanide (BUMEX) tablet 1 mg 1 mg oral BID Fredis Squires MD 1 mg at 03/21/23 0916 cloNIDine (CATAPRES) tablet 0.1 mg 0.1 mg oral q6h PRN Fredis Squires MD diphenhydrAMINE (BENADRYL) capsule 25 mg 25 mg oral q4h PRN Fredis Squires MD 25 mg at 03/22/23 1142 diphenhydrAMINE (BENADRYL) injection 25 mg 25 mg intravenous q6h PRN JAVED Patel docusate sodium (COLACE) capsule 100 mg 100 mg oral BID Fredis Squires MD 100 mg at 03/22/23 1003 gabapentin (NEURONTIN) capsule 300 mg 300 mg oral TID Fredis Squires MD 300 mg at 03/22/23 1430 HYDROmorphone (DILAUDID) injection 0.5 mg 0.5 mg intravenous q2h PRN Fredis Squires MD 0.5 mg at 03/19/23 1707 magnesium hydroxide (MILK OF MAGNESIA) 400 mg/5 mL suspension 30 mL 30 mL oral Daily Fredis Squires MD 30 mL at 03/22/23 1003 magnesium oxide (MAG-OX) tablet 400 mg 400 mg oral Nightly Fredis Squires MD 400 mg at 03/21/23 2130 meropenem (MERREM) 1 g in sodium chloride 0.9 % 100 mL IVPB - MBP 1 g intravenous q8h Aryan Bryan MD 200 mL/hr at 03/22/23 1610 1 g at 03/22/23 1610 naloxone (NARCAN) injection 0.4 mg 0.4 mg intravenous Once PRN Fredis Squires MD ondansetron (PF) (ZOFRAN) injection 4 mg 4 mg intravenous q6h PRN Fredis Squires MD oxyCODONE (ROXICODONE) immediate release tablet 10 mg 10 mg oral q4h PRN Fredis Squires MD 10 mg at 03/22/23 1142 Or oxyCODONE (ROXICODONE) immediate release tablet 20 mg 20 mg oral q4h PRN Fredis Squires MD 20 mg at 03/21/23 213 Oxygen Therapy, Adult inhalation PRN Fredis Squires MD pantoprazole (PROTONIX) EC tablet 40 mg 40 mg oral BID Fredis Squires MD 40 mg at 03/22/23 100 polyethylene glycol (MIRALAX) packet 17 g 17 g oral Nightly Fredis Squires MD 17 g at 03/19/232006 promethazine (PHENERGAN) suppository 25 mg 25 mg rectal q6h PRN Fredis Squires MD promethazine (PHENERGAN) tablet 25 mg 25 mg oral q6h PRN Fredis Squires MD rivaroxaban (XARELTO) tablet 10 mg 10 mg oral Daily with dinner JAVED Patel 10 mg at 03/22/23 1610 senna (SENOKOT) tablet 8.6 mg 1 tablet oral BID Fredis Squires MD 8.6 mg at 03/22/23 1003 sodium chloride 0.9 % flush 10 mL 10 mL intravenous BID JAVED Patel 10 mL at 03/22/23 1003 And sodium chloride 0.9 % flush 10 mL 10 mL intravenous PRN JAVED Patel sodium chloride 0.9 % flush 10 mL 10 mL intravenous q8h Aryan Bryan MD 10 mL at 03/22/23 1145 sodium chloride 0.9 % flush 20 mL 20 mL intravenous PRN Aryan Bryan MD 20 mL at 03/20/23 1436 sodium chloride 0.9 % infusion 100 mL/hr intravenous Continuous Fredis Squires MD 100 mL/hr at 03/19/23 1706 100 mL/hr at 03/19/23 1706 tiZANidine (ZANAFLEX) tablet 8 mg 8 mg oral Daily PRN Fredis Squires MD 8 mg at 03/20/232054 topiramate (TOPAMAX) tablet 50 mg 50 mg oral Nightly Fredis Squires MD 50 mg at 03/21/232130 traZODone (DESYREL) tablet 25 mg 25 mg oral Nightly PRN Fredis Squires MD Lab Results Component Value Date WBC 10.8 (H) 03/21/2023 HGB 11.6 (L) 03/21/2023 HCT 36.0 03/21/2023 MCV 88.0 03/21/2023 PLT 300 03/21/2023 Lab Results Component Value Date GLUCOSE 112 (H) 03/21/2023 CALCIUM 9.1 03/21/2023 NA 137 03/21/2023 K 4.6 03/21/2023 CO2 25 03/21/2023 CL 104 03/21/2023 BUN 22 (H) 03/21/2023 CREATININE 0.92 03/21/2023 I have reviewed the available microbiologic data available at the time of my evaluation. I have reviewed the current antimicrobial regimen for appropriateness. I have discussed this information with the pharmacy or with the microbiology laboratory as necessary. I have reviewed the available radiographic data. Pertinent findings may be mentioned in the impression and plan. Aryan Bryan MD * Amanda Horvath, PT - 03/22/2023 11:25 AM EDT [facility] Physical Therapy Treatment PT Discharge Recommendations: nursing home facility placement Distance Ambulated (ft): 35 Device: Rolling walker L Knee Flexion 0-140: 0-50 Fall prevention education provided including use of call light in hospital, use of appropriate assistive device, safe mobility techniques, and safety measures at home. Continue PT as per POC. Subjective/Objective/Assessment/Plan Pt agreeable to PT, still sitting up on EOB. Pt instructed in mobility inbcludn gait training 35' with RW/CGA- see grid below. Pt assisted back to bed and instructed in VREs and there ex x 10. Pillowplaced along lateral LLE to prevent ER and 2 ice packs donned, call light in reach. RN called for pain meds. Will cont per POC until d.c. to SNF. Pt progressing well. 03/22/23 1125 PT Time Calculation PT Start Time 1125 PT Stop Time 1148 PT Time Calculation (min) 23 min Precautions Medical Precautions Fall Risk Safety Interventions Call miller within reach LLE Weight Bearing Status As Tolerated Pain Assessment Pain Assessment 0-10 Pain Score 7 Pain Type Surgical pain Pain Location Knee Pain Interventions Ambulation/increased activity Bed Mobility Sitting to Lying Assistance Minimum assistance;Minimal verbal cues Lying to Sitting Assistance Contact guard;Minimal verbal cues Transfers Sit to Stand Assistance Contact guard Ambulation Walking Assistance Contact guard;Minimal verbal cues Device Rolling walker Distance Ambulated (ft) 35 Comments steady step-to gait AROM LLE (degrees) L Knee Flexion 0-140 0-50 Gait Training Gait Training Time Entry 13 Gait Training Activity 1 gait training Gait Training Activity 2 assisted back to bed Therapeutic Exercise Therapeutic Exercise Time Entry 10 Therapeutic Exercise Activity 1 LE VRE Therapeutic Exercise Activity 2 LLE THer ex x10 PT Assessment PT Assessment/ Barriers to discharge Decreased mobility Prognosis Good Evaluation/Treatment Tolerance Patient tolerated treatment well Medical Staff Made Aware Yes Goals/Education Encounter Problems Encounter Problems (Active) Template: Physical Therapy Problem: PT Short Term Goals Dates: Start: 03/19/23 Goal: Pt will perform bed mobility with CGA Dates: Start: 03/19/23 Expected End: 03/20/23 Outcomes Date/Time User Outcome 03/22/23 1156 Amanda Horvath PT Progressing Goal: Pt will perform transfers with SBA/FWW Dates: Start: 03/19/23 Expected End: 03/20/23 Outcomes Date/Time User Outcome 03/22/23 1156 Amanda Horvath PT Progressing Goal: Pt will ambulate x150 ft with SBA/FWW Dates: Start: 03/19/23 Expected End: 03/20/23 Outcomes Date/Time User Outcome 03/22/23 1156 Amanda Horvath PT Progressing Goal: Pt will ascend/descend stairs with CGA/LRAD Dates: Start: 03/19/23 Expected End: 03/20/23 Outcomes Date/Time User Outcome 03/21/23 1341 Yasmin Beck, PT Progressing Goal: Pt will indicate understanding of knee protocol HEP to begin POD1 Dates: Start: 03/19/23 Expected End: 03/20/23 Outcomes Date/Time User Outcome 03/22/23 1156 Amanda Horvath PT Progressing Encounter Problems (Resolved) There are no resolved problems. Education Documentation Home Exercise Program, taught by Amanda Horvath PT at 03/22/2023 11:56 AM. Learner: Patient Readiness: Eager Method: Explanation Response: Verbalizes Understanding Mobility Training, taught by Amanda Horvath PT at 03/22/2023 11:56 AM. Learner: Patient Readiness: Eager Method: Explanation Response: Verbalizes Understanding Explain call button use, taught by Amanda Horvath PT at 03/22/2023 11:56 AM. Learner: Patient Readiness: Eager Method: Explanation Response: Verbalizes Understanding Teach fall prevention measures, taught by Amanda Horvath PT at 03/22/2023 11:56 AM. Learner: Patient Readiness: Eager Method: Explanation Response: Verbalizes Understanding Home Exercise Program, taught by Amanda Horvath PT at 03/22/2023 10:57 AM. Learner: Patient Readiness: Eager Method: Explanation Response: Verbalizes Understanding Mobility Training, taught by Amanda Horvath PT at 03/22/2023 10:57 AM. Learner: Patient Readiness: Eager Method: Explanation Response: Verbalizes Understanding Explain call button use, taught by Amanda Horvath PT at 03/22/2023 10:57 AM. Learner: Patient Readiness: Eager Method: Explanation Response: Verbalizes Understanding Teach fall prevention measures, taught by Amanda Horvath PT at 03/22/2023 10:57 AM. Learner: Patient Readiness: Eager Method: Explanation Response: Verbalizes Understanding Education Comments No comments found. * JAVED Patel - 03/22/2023 10:07 AM EDT [facility] Orth[facility]edic [facility] Progress Note 3 Days Post-Op: * Left knee I & D * REVISION KNEE TOTAL LOS: 1 day Subjective: Patient doing well. States that pain is tolerable with current regimen. Tolerating dietwithout nausea or vomiting. Patient notes that she feels like she is developing irritation under the adhesive of the Prevena, however, there is no erythema or blisters noted. Objective: Vital signs (most recent): Blood pressure 119/67, pulse 81, temperature 36.4 C (97.6 F), resp. rate16, height 1.6 m (63 ), weight 103 kg (226 lb 3.1 oz), SpO2 98 %. : Last Recorded Vitals: Blood pressure 119/67, pulse 81, temperature 36.4 C (97.6 F), resp. rate 16, height 1.6 m (63 ), weight 103 kg (226 lb 3.1 oz), SpO2 98 %. Gen: comfortable, NAD Focused Musculoskeletal Exam: Surgical incision covered by wound vac. No output noted in Provena. No surrounding erythema or blisters noted. No drainage or swelling. Neurovascularly intact in the operative extremity. LABS: Lab Results Component Value Date WBC 10.8 (H) 03/21/2023 HGB 11.6 (L) 03/21/2023 HCT 36.0 03/21/2023 MCV 88.0 03/21/2023 PLT 300 03/21/2023 Lab Results Component Value Date GLUCOSE 112 (H) 03/21/2023 CALCIUM 9.1 03/21/2023 NA 137 03/21/2023 K 4.6 03/21/2023 CO2 25 03/21/2023 CL 104 03/21/2023 BUN 22 (H) 03/21/2023 CREATININE 0.92 03/21/2023 No results found for: INR, PROTIME No results found for: PTT Assessment & Plan 67 y.o. female 3 Days Post-Op status post * Left knee I & D * REVISION KNEE TOTAL. - WBAT on the operative extremity -Xarelto 10mg daily x28 days for DVT ppx as she reports an allergy to ASA - PT - Provena intact, no output noted. - PICC intact, patient receiving Meropenam per ID, appreciate assistance. Intraoperative cultures pending- NGTD. - Follow-up in clinic in 3 weeks for staple removal - Plan for discharge to Subacute Rehab Facility ([facility] or [facility]) when cleared by PT and medically stable * Amanda Horvath, PT - 03/22/2023 10:05 AM EDT [facility] Physical Therapy Treatment PT Discharge Recommendations: nursing home facility placement Distance Ambulated (ft): 30 Device: Rolling walker L Knee Flexion 0-140: 0-50 Fall prevention education provided including use of call light in hospital, use of appropriate assistive device, safe mobility techniques, and safety measures at home. Continue PT as per POC. Subjective/Objective/Assessment/Plan Pt agreeable to PT, RN and PA in room during session. Pt instructed in exs x 10 reps and safe mobility- see below- including gait training 30' with RW/CGA. Pt assisted to sit up on EOB and all needs met, call light in reach. Will cont per POC until d.c. to SNF. 03/22/23 1005 PT Time Calculation PT Start Time 1005 PT Stop Time 1035 PT Time Calculation (min) 30 min Precautions Medical Precautions Fall Risk Safety Interventions Call miller within reach LLE Weight Bearing Status As Tolerated Pain Assessment Pain Assessment 0-10 Pain Score 8 Pain Type Surgical pain Pain Location Knee Pain Interventions Ambulation/increased activity;Cold applied Bed Mobility Sitting to Lying Assistance Contact guard;Minimal verbal cues Lying to Sitting Assistance Contact guard;Minimal verbal cues Transfers Sit to Stand Assistance Contact guard Ambulation Walking Assistance Contact guard;Minimal verbal cues Device Rolling walker Distance Ambulated (ft) 30 Comments antalgic, steady AROM LLE (degrees) L Knee Flexion 0-140 0-50 Gait Training Gait Training Time Entry 15 Gait Training Activity 1 gait training Gait Training Activity 2 up to sit in EOB at exit Therapeutic Exercise Therapeutic Exercise Time Entry 15 Therapeutic Exercise Activity 1 B LE VRE x 10 Therapeutic Exercise Activity 2 LLE ther ex x 10 reps with min A PT Assessment PT Assessment/ Barriers to discharge Decreased mobility Prognosis Good Evaluation/Treatment Tolerance Patient tolerated treatment well Medical Staff Made Aware Yes Comments RN and PA present in session Goals/Education Encounter Problems Encounter Problems (Active) Template: Physical Therapy Problem: PT Short Term Goals Dates: Start: 03/19/23 Goal: Pt will perform bed mobility with CGA Dates: Start: 03/19/23 Expected End: 03/20/23 Outcomes Date/Time User Outcome 03/22/23 1056 Amanda Horvath PT Progressing Goal: Pt will perform transfers with SBA/FWW Dates: Start: 03/19/23 Expected End: 03/20/23 Outcomes Date/Time User Outcome 03/22/23 1056 Amanda Horvath PT Progressing Goal: Pt will ambulate x150 ft with SBA/FWW Dates: Start: 03/19/23 Expected End: 03/20/23 Outcomes Date/Time User Outcome 03/22/23 1056 Amanda Horvath PT Progressing Goal: Pt will ascend/descend stairs with CGA/LRAD Dates: Start: 03/19/23 Expected End: 03/20/23 Outcomes Date/Time User Outcome 03/21/23 1341 Yasmin Beck, RANDOLPH Progressing Goal: Pt will indicate understanding of knee protocol HEP to begin POD1 Dates: Start: 03/19/23 Expected End: 03/20/23 Outcomes Date/Time User Outcome 03/22/23 1056 Amanda Horvath PT Progressing Encounter Problems (Resolved) There are no resolved problems. Education Documentation Home Exercise Program, taught by Amanda Horvath PT at 03/22/2023 10:57 AM. Learner: Patient Readiness: Eager Method: Explanation Response: Verbalizes Understanding Mobility Training, taught by Amanda Horvath PT at 03/22/2023 10:57 AM. Learner: Patient Readiness: Eager Method: Explanation Response: Verbalizes Understanding Explain call button use, taught by Amanda Horvath PT at 03/22/2023 10:57 AM. Learner: Patient Readiness: Eager Method: Explanation Response: Verbalizes Understanding Teach fall prevention measures, taught by Amanda Horvath PT at 03/22/2023 10:57 AM. Learner: Patient Readiness: Eager Method: Explanation Response: Verbalizes Understanding Education Comments No comments found. * Cindy Aguilera RN - 03/22/2023 9:50 AM EDT Problem: Health Behavior: Goal: Patient Specific Outcome Outcome: Progressing Problem: Sensory: Goal: Demonstrates/reports adequate pain control Outcome: Progressing Problem: Coping: Goal: Verbalizations of alleviation of anxiety will increase Outcome: Progressing Problem: Cognitive: Goal: Knowledge of disease or condition will improve Outcome: Progressing Problem: Physical Regulation: Goal: Postoperative complications will be avoided or minimized Outcome: Progressing Goal: Ability to maintain clinical measurements within normal limits will improve Outcome: Progressing Problem: Skin Integrity: Goal: Patient will remain free of injury and skin integrity maintained Outcome: Progressing Problem: Respiratory: Goal: Knowledge of JERMEY (Obstructive Sleep Apnea) risk and follow-up will improve Outcome: Progressing Problem: Cognitive: Goal: Knowledge of Transition Instructions will improve Outcome: Progressing Problem: VTE Prevention: Goal: Will remain free of signs and symptoms of VTE Outcome: Progressing Problem: Activity: Goal: Ability to ambulate will improve Outcome: Progressing Goal: Range of joint motion will be supported Outcome: Progressing Problem: Falls: Goal: (Goal) Patient will experience maximum safety and reduce risk for falls. Outcome: Progressing Goal: Patient will not fall or injure themselves during hospitalization. Outcome: Progressing Problem: Physical Regulation: Goal: Signs and symptoms of infection will decrease Outcome: Progressing Goal: Complications related to the disease process, condition or treatment will be avoided or minimized Outcome: Progressing Goal: Diagnostic test results will improve Outcome: Progressing Problem: Activity: Goal: Mobility will improve Outcome: Progressing Problem: PT Short Term Goals Goal: Pt will perform bed mobility with CGA Outcome: Progressing Goal: Pt will perform transfers with SBA/FWW Outcome: Progressing Goal: Pt will ambulate x150 ft with SBA/FWW Outcome: Progressing Goal: Pt will ascend/descend stairs with CGA/LRAD Outcome: Progressing Goal: Pt will indicate understanding of knee protocol HEP to begin POD1 Outcome: Progressing Problem: Health Behavior: Goal: Patient Specific Outcome Outcome: Progressing Goal: Patient Specific Outcome Outcome: Progressing Goal: Patient Specific Outcome Outcome: Progressing Problem: Sensory: Goal: Pain level will improve or be tolerable Outcome: Progressing Goal: Ability to develop a pain control plan will improve Outcome: Progressing Problem: Cognitive: Goal: Expressions of feelings of enhanced comfort will increase Outcome: Progressing Goals: Stability of the patient: Moderately Stable - Low risk of patient condition declining or worsening * Pj Sparrow MD - 03/22/2023 6:56 AM EDT [facility] - PROGRESS NOTE Patient Name : Castillo Graham Patient : 1955 Patient Diagnosis : Perioperative Medical Management Provider Name : Pj Sparrow MD Date Of Service : 03/22/23 IMPRESSION AND PLAN : Left knee periprosthetic joint infection: Status/post Left knee polyethylene exchange, Left knee irrigation and debridement by Dr. Barber on 03/19/23. Defer primary management as well as management of NSAIDS and anticoagulants to the primary surgical service per protocol. The ID service has been consulted for infection and antibiotic management. I have seen the patient personally today and have reviewed available labs and imaging results as documented below under the results section. Additionally, I have reviewed available progress notes from the surgical staff and physical therapy. This patient's medication list, including their prescription drugs, have been reviewed and specificrecommendations as they relate to surgery and surgical recovery have been provided as outlined below. A medical consult has been ordered by the surgeon for perioperative management of the patient's chronic medical conditions as summarized below. Prophylaxis For Prevention of Deep Vein Thrombosis ( DVT ): This patient has a known history of Deep Vein Thrombosis ( DVT ) ( Z 86.718 ) in the past. They will require multi-modality treatments or interventions to prevent a recurrence. This should include education on venous return exercises . Inaddition, aggressive goals for early ambulation and timely physical therapy for mobility and independence are recommended to help prevent a DVT. I recommend providing pharmacologic and non-pharmacologic prophylaxis per current ACCP Guidelines. Ultimately, the final decision regarding anticoagulation for DVT prophylaxis / prevention will be per the discretion of the primary surgical service per pro tocol. Xarelto ordered by the primary service, first dose on 03/20. Leukocytosis (D72.829): Labs reviewed on rounds 03/22. WBC count mildly elevated at 10.8 on 03/21. Patient with a known source of infection. Defer wound exams to the primary surgical service. The ID service is following for infection and antibiotic management. Anemia: Labs reviewed on rounds /. Hgb 11.6 on 03/21, preoperative Hgb 12.9, and surgical EBL = 50 mLs. The patient continues to display no clinical indications for transfusion but will require ongoing management while hospitalized including, IVFs, pulse oximetry, and supplemental oxygen for [id number] than 90%. Coronary Artery Disease ( I 25.10 ) LISTED MILD FROM CATH IN 2017 - Chronic pre-existing diagnosis. Currently no signs or symptoms to suggest ACS on rounds /. Continue to monitor on telemetry while hospitalized. Home cardiac medications have been reordered. Listed allergy to aspirin. Congestive Heart Failure; Chronic Right-Sided CHF with mild LV Dysfunction and Mild Pulmonary HTN -on Diuretics. Remains compensated on rounds 03/22. Plan to watch sats and lung exam closely while in hospital. Continue Telemetry. Plan to continue diuretics and cardiac medications where applicable. CKD (N18.9): Chronic condition, present on admission. Per outside documentation, baseline creatinine reportedly 1.04. Labs and Is/Os reviewed on rounds 03/22. Last creatinine 0.92 on 03/21. Postoperativemedications have been reviewed and potentially nephrotoxic medications have been discontinued or adjusted for creatinine clearance. Continue monitoring of urine output while hospitalized. Obstructive Sleep Apnea ( JEREMY ) ( G 47.33 ) Chronic pre-existing condition present on admission. This patient DOES NOT USE either CPAP or BiPAP at home. Patient denied respiratory symptoms on rounds 6/. Patient remains at elevated risk for postoperative respiratory complications including hypoxemia and hypoventilation. Will continue monitoring on the [facility] JEREMY protocol. Respiratory Therapy to continue to encourage incentive spirometer use and to wean oxygen as tolerated. Hypertension (I10): Chronic condition, present on admission. Last BP noted at 118/60 on 03/22. The patient remains at risk for blood pressure fluctuations following surgery due to blood loss, fluid loss, pain, anxiety, and medications such as opioid pain medications. The patient's home prescription an tihypertensive medications have been reordered with hold parameters. As needed clonidine has been added. Pre-Diabetes noted ( R 73.09) - Chronic pre-existing condition present prior to admission. Plan to continue or encourage dietary modifications. HGB A1C 5.7% ON 03/19/23 - Sugars reviewed on rounds 03/22. Last reading noted at 112. Plan to continue POC glucose testing, and as needed SSI. Encouraged activity as directed by PT. Gastroesophageal Reflux / GERD ( K 21.9 ) Chronic pre-existing condition present on admission. Currently stable on a Proton Pump Inhibitor ( PPI ) for treatment. GERD can be exacerbated by surgery oranesthesia due to increased stress, delayed gastric emptying, and supine positioning. Plan to continue prescribed PPI +/- antihistamine before and after surgery for reduction of gastric acidity. Chronic Peripheral Edema ( R 60.9 ) - Chronic pre-existing condition present on admission - increased risk of Deep Vein Thrombosis; prophylaxis per surgery - plan to continue diuretics if applicable. Asthma (J45.909): Chronic condition, present on admission. Currently without signs or symptoms to suggest acute exacerbation.. Patient will require monitoring of their respiratory status including use of continuous pulse oximetry. Med Nebs have been ordered as needed. Chronic home prescription medic ations have been reordered. Left Bundle Branch Block (LBBB) noted on EKG. Patient denies any recent or associated cardiac symptoms and this would not represent an overt contraindication to surgery. Neuropathy ( G 62.9 ). Chronic pre-existing condition present on admission. Peripheral per records.Plan to continue previously prescribed medications for treatment and watch for recurrent or worsening symptoms. Morbid Obesity ( E 66.01 ) BMI >= 40. At least in part related to excess calorie intake. Dietarydiscretion is advised. It has been recommended they follow up with their PCP regarding weight loss intervention. Obesity increases the risks for postoperative hypoxia and hypoventilation. This patient will require close monitoring of respiratory status with frequent vitals and continuous pulse oxime try, especially if any sedatives or narcotic medications are given. Obesity also represents an additional risk factor for Deep Vein Thrombosis ( DVT ). They will require multi-modality treatments or interventions to prevent a DVT. This should include education on venous return exercises. In addition, aggressive goals for early ambulation and timely physical therapy for mobility and independenceare recommended to help prevent a DVT. Anticoagulation for DVT prophylaxis / prevention will be perthe discretion of the primary surgical service per protocol. Fibromyalgia ( M 79.7 ) noted; Chronic pre-existing condition present on admission - plan to resumePhysical Therapy and any prescribed medications for FM postoperatively. These medications are not ultimately necessary to give the morning of surgery. Gout ( M 10.9 ); chronic pre-existing condition present on admission but without current exacerbation noted. Plan to stop all NSAIDS prior to surgical procedure due to anticoagulant effects. Tylenol would be acceptable for alternative pain control. Medications for treatment of Gout other than NSAIDS can be continued but are not ultimately necessary the morning of surgery. Plan to continue to watch for symptoms. SUBJECTIVE/REVIEW OF SYSTEMS The patient was seen in their room on the inpatient unit. They were sleeping prior to visit and appeared comfortable during the visit. No new complaints this morning. REVIEW OF SYSTEMS : Cardiovascular: Denied chest pain or chest pressure Respiratory: Denies dyspnea or cough Gastrointestinal: Denied abdominal pain, denied nausea or vomiting, reports passing flatus and having a BM since surgery Genitourinary: Denies dysuria, urine output as noted Neurological: Denied acute neurological deficits or acute changes in strength or sensation Musculoskeletal: Defer to primary service VITALS : Visit Vitals BP 118/60 Pulse 78 Temp 36.7 C (98 F) (Oral) Resp 16 Ht 1.6 m (63 ) Wt 103 kg (226 lb 3.1 oz) SpO2 96% BMI 40.07 kg/m Smoking Status Former BSA 2.04 m PHYSICAL EXAM : General: Responds appropriately; no apparent distress Cardiovascular: Regular rate and rhythm; no murmur, rub, or gallop Respiratory: Clear to auscultation; normal respiratory effort Abdomen: Soft, non-distended; non-tender; bowel sounds normoactive Skin: No rashes Neurological: Alert and oriented x 3; appropriate mood and affect; follows commands/requests appropriately Musculoskeletal: Defer to primary service RESULTS : 02/24/17 Echo-Mildly reduced LV systolic function 02/24/17 Lexiscan BRAND RECORDER-mildly diminished LV systolic function with an EF of 48% 03/05/17-Non obstructive 3 vessel CAD LABS: CBC Lab Results Component Value Date WBC 10.8 (H) 03/21/2023 RBC 4.09 03/21/2023 HGB 11.6 (L) 03/21/2023 HCT 36.0 03/21/2023 MCV 88.0 03/21/2023 MCHC 32.2 03/21/2023 RDW 13.6 03/21/2023 PLT 300 03/21/2023 MPV 10.4 03/21/2023 DIFF Lab Results Component Value Date LYMPHOPCT 15.8 (L) 03/21/2023 NEUTROABS 7.84 (H) 03/21/2023 LYMPHSABS 1.70 03/21/2023 MONOABS 1.02 (H) 03/21/2023 EOSABS 0.08 03/21/2023 BASOSABS 0.04 03/21/2023 IMMGRANABS 0.07 03/21/2023 RETIC No results found for: RETIC, RETICCTPCT CMP Lab Results Component Value Date NA 137 03/21/2023 K 4.6 03/21/2023 CL 104 03/21/2023 CO2 25 03/21/2023 GLUCOSE 112 (H) 03/21/2023 BUN 22 (H) 03/21/2023 CREATININE 0.92 03/21/2023 CALCIUM 9.1 03/21/2023 EGFR 68 03/21/2023 * Alex Jones RN - 03/21/2023 9:25 PM EDT Problem: Falls: Goal: (Goal) Patient will experience maximum safety and reduce risk for falls. Outcome: Progressing Goal: Patient will not fall or injure themselves during hospitalization. Outcome: Progressing Problem: Physical Regulation: Goal: Signs and symptoms of infection will decrease Outcome: Progressing Goal: Complications related to the disease process, condition or treatment will be avoided or minimized Outcome: Progressing Goal: Diagnostic test results will improve Outcome: Progressing Problem: Health Behavior: Goal: Patient Specific Outcome Outcome: Progressing Goal: Patient Specific Outcome Outcome: Progressing Goal: Patient Specific Outcome Outcome: Progressing Problem: Sensory: Goal: Pain level will improve or be tolerable Outcome: Progressing Goal: Ability to develop a pain control plan will improve Outcome: Progressing Problem: Cognitive: Goal: Expressions of feelings of enhanced comfort will increase Outcome: Progressing Goals: Identify possible barriers to meeting goals/advancing plan of care: surgical procedure Stability of the patient: Moderately Stable - Low risk of patient condition declining or worsening End of Shift Summary * Aryan Bryan MD - 03/21/2023 1:11 PM EDT Images from the original note were not included. INFECTIOUS DISEASES DAILY PROGRESS NOTE Patient Name: Castillo Graham MR #: [id number] Hospital Day: 3 Assessment and Plan: 1. Left knee: Intraoperative cultures pending without growth. Preoperative aspirate with Pasteurella. Continuing current antimicrobial regimen. 2. Leukocytosis: Improving. 3. Disposition: Working on placement. Discussed with case management. Discussed with patient and son by telephone. Aryan Bryan MD Infectious Diseases Temp (24hrs), Av.8 C (98.2 F), Min:36.2 C (97.2 F), Max:37.2 C (99 F) Results from last 7 days Lab Units 03/21/23 0456 03/20/23 0402 03/19/23 1145 WBC AUTO K/mcL 10.8* 11.5* 12.4* PLATELETS K/mcL 300 270 268 Results from last 7 days Lab Units 03/21/23 0456 03/20/23 0402 03/19/23 1145 CREATININE mg/dL 0.92 1.03 1.10 Anti-infectives (From admission, onward) Start Dose/Rate Route Frequency Ordered Stop 03/20/23 1700 meropenem (MERREM) 1 g in sodium chloride 0.9 % 100 mL IVPB - MBP 1 g 200 mL/hr over 30 Minutes intravenous Every 8 hours 03/20/23 1603 03/23/23 1704 Subjective/Objective: Comfortable Review of Systems: I have evaluated for the presence of nausea, vomiting, diarrhea, or rash, or IV site issues by personally discussing these with the patient. If the patient is unable, I have reviewed these with either the nurse or the electronic medical record. Pertinent findings can be found in impression and plan. Physical Examination: Visit Vitals BP 108/71 (BP Location: Left arm, Patient Position: Lying) Pulse 81 Temp 36.8 C (98.2 F) (Temporal) Resp 12 Ht 1.6 m (63 ) Wt 103 kg (226 lb 3.1 oz) SpO2 97% BMI 40.07 kg/m Smoking Status Former BSA 2.04 m GENERAL: Comfortable, in no distress HEENT: symmetric, OP moist, no lesions NECK: Supple LUNGS: Breathing is unlabored, clear HEART: regular ABDOMEN: soft, non tender, BS normal EXTREMITY: minimal edema MENTAL STATUS: comfortable SKIN: No lesions noted WOUNDS: LINES: uncomplicated Pertinent deviations from examination above may be mentioned in the impression and plan. Results/Medications Reviewed: Current Facility-Administered Medications Medication Dose Route Frequency Provider Last Rate Last Admin acetaminophen (TYLENOL) tablet 650 mg 650 mg oral q6h PRN Fredis Squires MD acetaminophen (TYLENOL) tablet 975 mg 975 mg oral q8h Fredis Squires MD 975 mg at 03/21/23 1433 albuterol 2.5 mg /3 mL (0.083 %) nebulizer solution 2.5 mg 2.5 mg nebulization q6h PRN Fredis Squires MD allopurinoL (ZYLOPRIM) tablet 200 mg 200 mg oral Daily Fredis Squires MD 200 mg at 03/21/23 0916 aluminum-magnesium hydroxide-simethicone (MAALOX) 200-200-20 mg/5 mL suspension 30 mL 30 mL oral 4xdaily PRN Fredis Squires MD bethanechol (URECHOLINE) tablet 25 mg 25 mg oral TID PRN Fredis Squires MD bisacodyL (DULCOLAX) suppository 10 mg 10 mg rectal Daily PRN Fredis Squires MD budesonide-formoteroL (SYMBICORT) 160-4.5 mcg/actuation inhaler 2 puff 2 puff inhalation BID Fredis Patterson MD 2 puff at 03/21/23 0816 bumetanide (BUMEX) tablet 1 mg 1 mg oral BID Frdeis Squires MD 1 mg at 03/21/23 0916 cloNIDine (CATAPRES) tablet 0.1 mg 0.1 mg oral q6h PRN Fredis Squires MD diphenhydrAMINE (BENADRYL) capsule 25 mg 25 mg oral q4h PRN Fredis Squires MD 25 mg at 03/20/232055 diphenhydrAMINE (BENADRYL) injection 25 mg 25 mg intravenous q6h PRN JAVED Patel docusate sodium (COLACE) capsule 100 mg 100 mg oral BID Fredis Squires MD 100 mg at 03/21/23 0916 gabapentin (NEURONTIN) capsule 300 mg 300 mg oral TID Fredis Squires MD 300 mg at 03/21/23 143 HYDROmorphone (DILAUDID) injection 0.5 mg 0.5 mg intravenous q2h PRN Fredis Squires MD 0.5 mg at 03/19/23 170 magnesium hydroxide (MILK OF MAGNESIA) 400 mg/5 mL suspension 30 mL 30 mL oral Daily Fredis Squires MD 30 mL at 03/21/23 09 magnesium oxide (MAG-OX) tablet 400 mg 400 mg oral Nightly Fredis Squires MD 400 mg at 03/20/232054 meropenem (MERREM) 1 g in sodium chloride 0.9 % 100 mL IVPB - MBP 1 g intravenous q8h Aryan Bryan MD 200 mL/hr at 03/21/23 1706 1 g at 03/21/23 170 naloxone (NARCAN) injection 0.4 mg 0.4 mg intravenous Once PRN Fredis Squires MD ondansetron (PF) (ZOFRAN) injection 4 mg 4 mg intravenous q6h PRN Fredis Squires MD oxyCODONE (ROXICODONE) immediate release tablet 10 mg 10 mg oral q4h PRN Fredis Squires MD 10 mg at 03/21/23 0500 Or oxyCODONE (ROXICODONE) immediate release tablet 20 mg 20 mg oral q4h PRN Fredis Squires MD 20 mg at 03/21/23 1718 Oxygen Therapy, Adult inhalation PRN Fredis Squires MD pantoprazole (PROTONIX) EC tablet 40 mg 40 mg oral BID Fredis Squires MD 40 mg at 03/21/23 0916 polyethylene glycol (MIRALAX) packet 17 g 17 g oral Nightly Fredis Squires MD 17 g at 03/19/232006 promethazine (PHENERGAN) suppository 25 mg 25 mg rectal q6h PRN Fredis Squires MD promethazine (PHENERGAN) tablet 25 mg 25 mg oral q6h PRN Fredis Squires MD rivaroxaban (XARELTO) tablet 10 mg 10 mg oral Daily with dinner JAVED Patel 10 mg at 03/21/23 1705 senna (SENOKOT) tablet 8.6 mg 1 tablet oral BID Fredis Squires MD 8.6 mg at 03/21/23 0916 sodium chloride 0.9 % flush 10 mL 10 mL intravenous BID JAVED Patel 10 mL at 03/20/23 0828 And sodium chloride 0.9 % flush 10 mL 10 mL intravenous PRN JAVED Patel sodium chloride 0.9 % flush 10 mL 10 mL intravenous q8h Aryan Bryan MD 10 mL at 03/21/23 0503 sodium chloride 0.9 % flush 20 mL 20 mL intravenous PRN Aryan Bryan MD 20 mL at 03/20/23 1436 sodium chloride 0.9 % infusion 100 mL/hr intravenous Continuous Fredis Squires MD 100 mL/hr at 03/19/23 1706 100 mL/hr at 03/19/23 170 tiZANidine (ZANAFLEX) tablet 8 mg 8 mg oral Daily PRN Fredis Squires MD 8 mg at 03/20/232054 topiramate (TOPAMAX) tablet 50 mg 50 mg oral Nightly Fredis Squires MD 50 mg at 03/20/232054 traZODone (DESYREL) tablet 25 mg 25 mg oral Nightly PRN Fredis Squires MD Lab Results Component Value Date WBC 10.8 (H) 03/21/2023 HGB 11.6 (L) 03/21/2023 HCT 36.0 03/21/2023 MCV 88.0 03/21/2023 PLT 300 03/21/2023 Lab Results Component Value Date GLUCOSE 112 (H) 03/21/2023 CALCIUM 9.1 03/21/2023 NA 137 03/21/2023 K 4.6 03/21/2023 CO2 25 03/21/2023 CL 104 03/21/2023 BUN 22 (H) 03/21/2023 CREATININE 0.92 03/21/2023 I have reviewed the available microbiologic data available at the time of my evaluation. I have reviewed the current antimicrobial regimen for appropriateness. I have discussed this information with the pharmacy or with the microbiology laboratory as necessary. I have reviewed the available radiographic data. Pertinent findings may be mentioned in the impression and plan. Aryan Bryan MD * Yasmin Beck, PT - 03/21/2023 12:55 PM EDT [facility] Physical Therapy Treatment PT Discharge Recommendations: nursing home facility placement Distance Ambulated (ft): 0, 30feet in am session Device: Rolling walker L Knee Flexion 0-140: 0-54 Fall prevention education provided including use of call light in hospital, use of appropriate assistive device, safe mobility techniques, and safety measures at home. Continue PT as per POC. Subjective/Objective/Assessment/Plan Pt supine upon arrival. HEP completed with less assist with SAQ and hip abd during this session. Ptlunch/meal arrived during exercises and deferred ambulation with this PT as a result. Pt with increased AROM 0-54 L knee this session. Awaiting SNF precert. 03/21/23 1255 PT Time Calculation PT Start Time 1255 PT Stop Time 1313 PT Time Calculation (min) 18 min Precautions Medical Precautions Fall Risk Safety Interventions Call miller within reach LLE Weight Bearing Status As Tolerated Pain Assessment Pain Assessment 0-10 Pain Score 8 Pain Type Surgical pain Pain Location Knee Pain Orientation Right Pain Interventions Cold applied;Repositioned Cognition Orientation Level Oriented X4 Ambulation Distance Ambulated (ft) 0 Comments 30feet in the morning session AROM LLE (degrees) L Knee Flexion 0-140 0-54 Therapeutic Exercise Therapeutic Exercise Time Entry 18 Therapeutic Exercise Activity 1 HEP x10 reps, less assist for SAQ compared to am Therapeutic Exercise Activity 2 VRE x10 reps Other Activity Other Activity 1 Ice packs placed to L knee PT Assessment Comments SNF precert pending Medical Staff Made Aware Yes Comments MARIBELL De Leon notified Goals/Education Encounter Problems Encounter Problems (Active) Template: Physical Therapy Problem: PT Short Term Goals Dates: Start: 03/19/23 Goal: Pt will perform bed mobility with CGA Dates: Start: 03/19/23 Expected End: 03/20/23 Outcomes Date/Time User Outcome 03/21/23 1341 Yasmin Beck PT Progressing Goal: Pt will perform transfers with SBA/FWW Dates: Start: 03/19/23 Expected End: 03/20/23 Outcomes Date/Time User Outcome 03/21/23 1341 Yasmin Beck PT Progressing Goal: Pt will ambulate x150 ft with SBA/FWW Dates: Start: 03/19/23 Expected End: 03/20/23 Outcomes Date/Time User Outcome 03/21/23 1341 Yasmin Beck, PT Progressing Goal: Pt will ascend/descend stairs with CGA/LRAD Dates: Start: 03/19/23 Expected End: 03/20/23 Outcomes Date/Time User Outcome 03/21/23 1341 Yasmin Beck, PT Progressing Goal: Pt will indicate understanding of knee protocol HEP to begin POD1 Dates: Start: 03/19/23 Expected End: 03/20/23 Outcomes Date/Time User Outcome 03/21/23 1341 Yasmin Beck PT Progressing Encounter Problems (Resolved) There are no resolved problems. Education Documentation Home Exercise Program, taught by Yasmin Beck PT at 03/21/2023 12:55 PM. Learner: Patient Readiness: Acceptance Method: Explanation, Demonstration, Handout Response: Verbalizes Understanding, Demonstrated Understanding, Indicates Understanding in Bedside Comment: HEP, quad contraction for ther-ex, LE positioning/icing Mobility Training, taught by Yasmin Beck PT at 03/21/2023 12:55 PM. Learner: Patient Readiness: Acceptance Method: Explanation, Demonstration, Handout Response: Verbalizes Understanding, Demonstrated Understanding, Indicates Understanding in Bedside Comment: HEP, quad contraction for ther-ex, LE positioning/icing Home Exercise Program, taught by Yasmin Beck PT at 03/21/2023 9:57 AM. Learner: Patient Readiness: Acceptance Method: Explanation, Demonstration, Handout Response: Verbalizes Understanding, Demonstrated Understanding, Indicates Understanding in Bedside Comment: HEP handout at bedside. Min A for ther-ex due to pain and mm weakness. Instruction for OOBtechnique and quad mm activiation/strengthening with mobility. Mobility Training, taught by Yasmin Beck PT at 03/21/2023 9:57 AM. Learner: Patient Readiness: Acceptance Method: Explanation, Demonstration, Handout Response: Verbalizes Understanding, Demonstrated Understanding, Indicates Understanding in Bedside Comment: HEP handout at bedside. Min A for ther-ex due to pain and mm weakness. Instruction for OOBtechnique and quad mm activiation/strengthening with mobility. Education Comments No comments found. * Nik Cates RN - 03/21/2023 11:20 AM EDT OB call to Сергей at [facility] [phone]. NN spoke with [facility]. Per [facility] admissions staff are out of the office until Thursday. CM will continue to follow. * Yasmin Beck PT - 03/21/2023 9:57 AM EDT [facility] Physical Therapy Treatment PT Discharge Recommendations: nursing home facility placement Distance Ambulated (ft): 30 Device: Rolling walker L Knee Flexion 0-140: 0-46 Fall prevention education provided including use of call light in hospital, use of appropriate assistive device, safe mobility techniques, and safety measures at home. Continue PT as per POC. Subjective/Objective/Assessment/Plan Attempted PT 852 however breakfast tray in place. PT returned at 957 for session. HEP x10 reps withMin A due to pain and quad weakness. Pt expressed skin irritation due to Prevena, states PA will remove if she sees any issues. Pt sitting EOB after session with all needs met. Limited knee flexion noted throughout session, encouraged pt to bend knee sitting EOB with feet flat on floor. AROM 0-46degrees. See flow sheet for details below. 03/21/23 0957 PT Time Calculation PT Start Time 0957 PT Stop Time 1020 PT Time Calculation (min) 23 min Precautions Medical Precautions Fall Risk Safety Interventions Call miller within reach;Gait belt LLE Weight Bearing Status As Tolerated Pain Assessment Pain Assessment 0-10 Pain Score 8 Pain Type Surgical pain Pain Location Knee Pain Orientation Left Pain Descriptors Aching Pain Interventions Cold applied Cognition Orientation Level Oriented X4 Dynamic Sitting Balance Dynamic Sitting-Level of Assistance Supervision or touching assistance Static Standing Balance Static Standing-Level of Assistance Supervision or touching assistance Dynamic Standing Balance Dynamic Standing-Level of Assistance Contact guard Bed Mobility Sitting to Lying Assistance Contact guard;Minimum assistance Lying to Sitting Assistance Contact guard;Minimum assistance Bed Mobility Comments assist for L LE in and out of bed Transfers Sit to Stand Assistance Contact guard Toilet Transfer Assistance Contact guard Ambulation Walking Assistance Contact guard Device Rolling walker Distance Ambulated (ft) 30 Comments Prevena dressing in place L knee Procedures Procedures Gait Training;Therapeutic Exercise Gait Training Gait Training Time Entry 10 Gait Training Activity 1 Gait training with FWW Therapeutic Activity Therapeutic Activity Time Entry 3 Therapeutic Activity 1 Bed mobility and transfer training with cues Therapeutic Exercise Therapeutic Exercise Time Entry 10 Therapeutic Exercise Activity 1 HEP x10 reps with Min A due to mm weakness Therapeutic Exercise Activity 2 VRE x10 reps Other Activity Other Activity 1 Pt sitting up on EOB with tray table in place and call light at PT exit. PT Assessment Comments SNF precert pending, pt states adhesive tape irritating skin, nursing aware Medical Staff Made Aware Yes Comments MARIBELL De Leon notified Goals/Education Encounter Problems Encounter Problems (Active) Template: Physical Therapy Problem: PT Short Term Goals Dates: Start: 03/19/23 Goal: Pt will perform bed mobility with CGA Dates: Start: 03/19/23 Expected End: 03/20/23 Outcomes Date/Time User Outcome 03/21/23 1056 Yasmin Beck, PT Progressing Goal: Pt will perform transfers with SBA/FWW Dates: Start: 03/19/23 Expected End: 03/20/23 Outcomes Date/Time User Outcome 03/21/23 1056 Yasmin Beck, PT Progressing Goal: Pt will ambulate x150 ft with SBA/FWW Dates: Start: 03/19/23 Expected End: 03/20/23 Outcomes Date/Time User Outcome 03/21/23 1056 Yasmin Beck, PT Progressing Goal: Pt will ascend/descend stairs with CGA/LRAD Dates: Start: 03/19/23 Expected End: 03/20/23 Outcomes Date/Time User Outcome 03/21/23 1056 Yasmin Beck, PT Progressing Goal: Pt will indicate understanding of knee protocol HEP to begin POD1 Dates: Start: 03/19/23 Expected End: 03/20/23 Outcomes Date/Time User Outcome 03/21/23 1056 Yasmin Beck PT Progressing Encounter Problems (Resolved) There are no resolved problems. Education Documentation Home Exercise Program, taught by Yasmin Beck PT at 03/21/2023 9:57 AM. Learner: Patient Readiness: Acceptance Method: Explanation, Demonstration, Handout Response: Verbalizes Understanding, Demonstrated Understanding, Indicates Understanding in Bedside Comment: HEP handout at bedside. Min A for ther-ex due to pain and mm weakness. Instruction for OOBtechnique and quad mm activiation/strengthening with mobility. Mobility Training, taught by Yasmin Beck PT at 03/21/2023 9:57 AM. Learner: Patient Readiness: Acceptance Method: Explanation, Demonstration, Handout Response: Verbalizes Understanding, Demonstrated Understanding, Indicates Understanding in Bedside Comment: HEP handout at bedside. Min A for ther-ex due to pain and mm weakness. Instruction for OOBtechnique and quad mm activiation/strengthening with mobility. Education Comments No comments found. * Nik Cates RN - 03/21/2023 8:52 AM EDT [facility] Case Management Rounding Note Patient Castillo Graham * Anusha Barber MD - Primary Procedure(s): Left knee I & D REVISION KNEE TOTAL 2 Days Post-Op Rounded with JAVED Goldman Physical Therapy Progress reviewed. WBAT on operative extremity Brace order: NA Meds: BASA [] Xarelto [x] Eliquis [] Coumadin [] Lovenox [] Incision: No Issues Prevena wound vac-pt concerned she will develop blisters around the wound vac. Pt currently without blisters. Kaur discussed with the pt if she would develop blisters wound vac could be removed and abd applied. Risk and benefits discussed. Kaur will re-assess on Thursday. Follow Up at Clinic: 1 Week Prevena Wound Vac Removal -Kaur will be in office on Tuesday 03/27. Pt to call and schedule/confirm appt. Plan for Discharge: SNF when cleared by Physical Therapy and medically stable. Awaiting precert. * JAVED Patel - 03/21/2023 8:49 AM EDT [facility] Orth[facility]edic Surgery Progress Note 2 Days Post-Op: * Left knee I & D * REVISION KNEE TOTAL LOS: 0 days Subjective: Patient doing well. States that pain is tolerable with current regimen. Tolerating dietwithout nausea or vomiting. Objective: Last Recorded Vitals: Blood pressure 122/77, pulse 70, temperature 37.2 C (99 F), temperature source Temporal, resp. rate12, height 1.6 m (63 ), weight 103 kg (226 lb 3.1 oz), SpO2 100 %. Gen: comfortable, NAD Focused Musculoskeletal Exam: Surgical incision covered by wound vac. No output noted in Provena No drainage or swelling. Neurovascularly intact in the operative extremity. LABS: Lab Results Component Value Date WBC 10.8 (H) 03/21/2023 HGB 11.6 (L) 03/21/2023 HCT 36.0 03/21/2023 MCV 88.0 03/21/2023 PLT 300 03/21/2023 Lab Results Component Value Date GLUCOSE 95 03/21/2023 CALCIUM 9.1 03/21/2023 NA 137 03/21/2023 K 4.6 03/21/2023 CO2 25 03/21/2023 CL 104 03/21/2023 BUN 22 (H) 03/21/2023 CREATININE 0.92 03/21/2023 No results found for: INR, PROTIME No results found for: PTT Assessment & Plan 67 y.o. female 2 Days Post-Op status post * Left knee I & D * REVISION KNEE TOTAL. - WBAT on the operative extremity -Xarelto 10mg daily x28 days for DVT ppx as she reports an allergy to ASA - PT - Provena intact, no output noted - PICC intact, patient receiving Meropenam per ID, appreciate assistance - Follow-up in clinic in 2-3 weeks for staple removal - Plan for discharge to Subacute Rehab Facility ([facility] or [facility]) when cleared by PT and medically stable * Pj Sparrow MD - 03/21/2023 6:44 AM EDT [facility] - PROGRESS NOTE Patient Name : Castillo Graham Patient : 1955 Patient Diagnosis : Perioperative Medical Management Provider Name : Pj Sparrow MD Date Of Service : 03/21/23 IMPRESSION AND PLAN : Left knee periprosthetic joint infection: Status/post Left knee polyethylene exchange, Left knee irrigation and debridement by Dr. Barber on 03/19/23. Defer primary management as well as management of NSAIDS and anticoagulants to the primary surgical service per protocol. The ID service has been consulted for infection and antibiotic management. I have seen the patient personally today and have reviewed available labs and imaging results as documented below under the results section. Additionally, I have reviewed available progress notes from the surgical staff and physical therapy. This patient's medication list, including their prescription drugs, have been reviewed and specificrecommendations as they relate to surgery and surgical recovery have been provided as outlined below. A medical consult has been ordered by the surgeon for perioperative management of the patient's chronic medical conditions as summarized below. Prophylaxis For Prevention of Deep Vein Thrombosis ( DVT ): This patient has a known history of Deep Vein Thrombosis ( DVT ) ( Z 86.718 ) in the past. They will require multi-modality treatments or interventions to prevent a recurrence. This should include education on venous return exercises . Inaddition, aggressive goals for early ambulation and timely physical therapy for mobility and independence are recommended to help prevent a DVT. I recommend providing pharmacologic and non-pharmacologic prophylaxis per current ACCP Guidelines. Ultimately, the final decision regarding anticoagulation for DVT prophylaxis / prevention will be per the discretion of the primary surgical service per pro tocol. Xarelto ordered by the primary service, first dose on 03/20. Leukocytosis (D72.829): WBC count mildly elevated at 10.8 on 03/21. Patient with a known source of infection. Defer wound exams to the primary surgical service. The ID service is following for infection and antibiotic management. Anemia: Current Hgb 11.6 on 03/21, preoperative Hgb 12.9, and surgical EBL = 50 mLs. The patient currently does not have indications for transfusion but will require ongoing management while hospitalized including lab monitoring, IVFs, pulse oximetry, and supplemental oxygen for RASaO2 less than 90%. Coronary Artery Disease ( I 25.10 ) LISTED MILD FROM CATH IN 2017 - Chronic pre-existing diagnosis. Currently no signs or symptoms to suggest ACS on rounds 6/3. Continue to monitor on telemetry while hospitalized. Home cardiac medications have been reordered. Listed allergy to aspirin. Congestive Heart Failure; Chronic Right-Sided CHF with mild LV Dysfunction and Mild Pulmonary HTN -on Diuretics. Remains compensated on rounds 6/3. Plan to watch sats and lung exam closely while in hospital. Continue Telemetry. Plan to continue diuretics and cardiac medications where applicable. CKD (N18.9): Chronic condition, present on admission. Per outside documentation, baseline creatinine reportedly 1.04. Labs and Is/Os reviewed on rounds /. Last creatinine 0.92. The patient will be at the risk for the development of acute kidney injury postoperatively. They will require monitoringof urine output and blood chemistries. Postoperative medications have been reviewed and potentiallynephrotoxic medications have been discontinued or adjusted for creatinine clearance. Obstructive Sleep Apnea ( JEREMY ) ( G 47.33 ) Chronic pre-existing condition present on admission. This patient DOES NOT USE either CPAP or BiPAP at home. Patient denied respiratory symptoms on rounds 6/. Patient remains at elevated risk for postoperative respiratory complications including hypoxemia and hypoventilation. Will continue monitoring on the [facility] JEREMY protocol. Respiratory Therapy to continue to encourage incentive spirometer use and to wean oxygen as tolerated. Hypertension (I10): Chronic condition, present on admission. Last BP noted at 122/77 on 03/21. The patient remains at risk for blood pressure fluctuations following surgery due to blood loss, fluid loss, pain, anxiety, and medications such as opioid pain medications. The patient's home prescription an tihypertensive medications have been reordered with hold parameters. As needed clonidine has been added. Pre-Diabetes noted ( R 73.09) - Chronic pre-existing condition present prior to admission. Plan to continue or encourage dietary modifications. HGB A1C 5.7% ON 03/19/23 - Sugars reviewed on rounds 6/3. Last reading noted at 95. Plan to continue POC glucose testing, and as needed SSI. Encouraged activity as directed by PT. Gastroesophageal Reflux / GERD ( K 21.9 ) Chronic pre-existing condition present on admission. Currently stable on a Proton Pump Inhibitor ( PPI ) for treatment. GERD can be exacerbated by surgery oranesthesia due to increased stress, delayed gastric emptying, and supine positioning. Plan to continue prescribed PPI +/- antihistamine before and after surgery for reduction of gastric acidity. Chronic Peripheral Edema ( R 60.9 ) - Chronic pre-existing condition present on admission - increased risk of Deep Vein Thrombosis; prophylaxis per surgery - plan to continue diuretics if applicable. Asthma (J45.909): Chronic condition, present on admission. Currently without signs or symptoms to suggest acute exacerbation.. Patient will require monitoring of their respiratory status including use of continuous pulse oximetry. Med Nebs have been ordered as needed. Chronic home prescription medic ations have been reordered. Left Bundle Branch Block (LBBB) noted on EKG. Patient denies any recent or associated cardiac symptoms and this would not represent an overt contraindication to surgery. Neuropathy ( G 62.9 ). Chronic pre-existing condition present on admission. Peripheral per records.Plan to continue previously prescribed medications for treatment and watch for recurrent or worsening symptoms. Morbid Obesity ( E 66.01 ) BMI >= 40. At least in part related to excess calorie intake. Dietarydiscretion is advised. It has been recommended they follow up with their PCP regarding weight loss intervention. Obesity increases the risks for postoperative hypoxia and hypoventilation. This patient will require close monitoring of respiratory status with frequent vitals and continuous pulse oxime try, especially if any sedatives or narcotic medications are given. Obesity also represents an additional risk factor for Deep Vein Thrombosis ( DVT ). They will require multi-modality treatments or interventions to prevent a DVT. This should include education on venous return exercises. In addition, aggressive goals for early ambulation and timely physical therapy for mobility and independenceare recommended to help prevent a DVT. Anticoagulation for DVT prophylaxis / prevention will be perthe discretion of the primary surgical service per protocol. Fibromyalgia ( M 79.7 ) noted; Chronic pre-existing condition present on admission - plan to resumePhysical Therapy and any prescribed medications for FM postoperatively. These medications are not ultimately necessary to give the morning of surgery. Gout ( M 10.9 ); chronic pre-existing condition present on admission but without current exacerbation noted. Plan to stop all NSAIDS prior to surgical procedure due to anticoagulant effects. Tylenol would be acceptable for alternative pain control. Medications for treatment of Gout other than NSAIDS can be continued but are not ultimately necessary the morning of surgery. Plan to continue to watch for symptoms. SUBJECTIVE/REVIEW OF SYSTEMS The patient was seen in their room on the inpatient unit. They were resting quietly prior to visit and appeared comfortable during the visit. No new complaints this morning, except that she is frustrated with diabetic diet. REVIEW OF SYSTEMS : Pain Control: Mild surgical site pain, adequately controlled Cardiovascular: Denied chest pain or chest pressure Respiratory: Denies dyspnea or cough Gastrointestinal: Denied abdominal pain, denied nausea or vomiting, reports passing flatus since surgery and having a BM on 03/20 Genitourinary: Denies dysuria, urine output as noted Neurological: Denied acute neurological deficits or acute changes in strength or sensation Musculoskeletal: Defer to primary service VITALS : Visit Vitals Visit Vitals BP 122/77 (BP Location: Left arm, Patient Position: Lying) Pulse 70 Temp 37.2 C (99 F) (Temporal) Resp 12 Ht 1.6 m (63 ) Wt 103 kg (226 lb 3.1 oz) SpO2 100% BMI 40.07 kg/m Smoking Status Former BSA 2.04 m PHYSICAL EXAM : General: Responds appropriately; no apparent distress Cardiovascular: Regular rate and rhythm; no murmur, rub, or gallop Respiratory: Clear to auscultation; normal respiratory effort Abdomen: Soft, non-distended; non-tender; bowel sounds normoactive Skin: No rashes Neurological: Alert and oriented x 3; appropriate mood and affect; follows commands/requests appropriately Musculoskeletal: Defer to primary service RESULTS : 02/24/17 Echo-Mildly reduced LV systolic function 02/24/17 Lexiscan BRAND RECORDER-mildly diminished LV systolic function with an EF of 48% 03/05/17-Non obstructive 3 vessel CAD LABS: CBC Lab Results Component Value Date WBC 10.8 (H) 03/21/2023 RBC 4.09 03/21/2023 HGB 11.6 (L) 03/21/2023 HCT 36.0 03/21/2023 MCV 88.0 03/21/2023 MCHC 32.2 03/21/2023 RDW 13.6 03/21/2023 PLT 300 03/21/2023 MPV 10.4 03/21/2023 DIFF Lab Results Component Value Date LYMPHOPCT 15.8 (L) 03/21/2023 NEUTROABS 7.84 (H) 03/21/2023 LYMPHSABS 1.70 03/21/2023 MONOABS 1.02 (H) 03/21/2023 EOSABS 0.08 03/21/2023 BASOSABS 0.04 03/21/2023 IMMGRANABS 0.07 03/21/2023 RETIC No results found for: RETIC, RETICCTPCT CMP Lab Results Component Value Date NA 137 03/21/2023 K 4.6 03/21/2023 CL 104 03/21/2023 CO2 25 03/21/2023 GLUCOSE 95 03/21/2023 BUN 22 (H) 03/21/2023 CREATININE 0.92 03/21/2023 CALCIUM 9.1 03/21/2023 EGFR 68 03/21/2023 * Alex Jones RN - 03/20/2023 10:23 PM EDT Problem: Falls: Goal: (Goal) Patient will experience maximum safety and reduce risk for falls. 03/20/20232222 by Alex Jones RN Outcome: Progressing 03/20/20232222 by Alex Jones RN Outcome: Progressing Goal: Patient will not fall or injure themselves during hospitalization. 03/20/20232222 by Alex Jones RN Outcome: Progressing 03/20/20232222 by Alex Jonse RN Outcome: Progressing Problem: Physical Regulation: Goal: Signs and symptoms of infection will decrease Outcome: Progressing Goal: Complications related to the disease process, condition or treatment will be avoided or minimized Outcome: Progressing Goal: Diagnostic test results will improve Outcome: Progressing Problem: Activity: Goal: Mobility will improve Outcome: Progressing Problem: Health Behavior: Goal: Patient Specific Outcome Outcome: Progressing Goal: Patient Specific Outcome Outcome: Progressing Goal: Patient Specific Outcome Outcome: Progressing Problem: Sensory: Goal: Pain level will improve or be tolerable Outcome: Progressing Goal: Ability to develop a pain control plan will improve Outcome: Progressing Problem: Cognitive: Goal: Expressions of feelings of enhanced comfort will increase Outcome: Progressing Goals: Identify possible barriers to meeting goals/advancing plan of care: surgical procedure Stability of the patient: Moderately Stable - Low risk of patient condition declining or worsening End of Shift Summary * Pj Sparrow MD - 03/20/2023 8:35 PM EDT Error * Debbie Kapadia RN - 03/20/2023 2:03 PM EDT Rosetta from [facility] is requesting todays clinicals and manually faxed to her [employer] of [phone] * Haley He PTA - 03/20/2023 12:25 PM EDT [facility] Physical Therapy Treatment PT Discharge Recommendations: nursing home facility placement Distance Ambulated (ft): 30 in a.m. session Device: Rolling walker L Knee Flexion 0-140: 0-46 in a.m. session Fall prevention education provided including use of call light in hospital, use of appropriate assistive device, safe mobility techniques, and safety measures at home. Continue PT as per POC. Subjective/Objective/Assessment/Plan Pt stated she had just returned to bed from the BR with staff assist. Pt declined HEP but wanted toreview all ex. This therapist reviewed and demo HEP to pt. Pt requesting to have the legs of the bed bent up but educated pt on the importance of full knee ext when in bed. Pt verbalized understanding. Placed pink cushion under ankle to keep L LE in midline while pt resting in bed. Cont as per POC until discharged to SNF for cont skilled services 03/20/23 1225 General Family/Caregiver Present No PT Time Calculation PT Start Time 1225 PT Stop Time 1241 PT Time Calculation (min) 16 min Precautions Medical Precautions Fall Risk Safety Interventions Call miller within reach;Gait belt LLE Weight Bearing Status As Tolerated Pain Assessment Pain Assessment 0-10 Pain Score 5 - Moderate pain Pain Type Surgical pain Pain Location Knee Pain Orientation Left Cognition Arousal/Alertness Appropriate responses to stimuli Orientation Level Oriented X4 Following Commands Follows all commands and directions without difficulty Procedures Procedures Therapeutic Activity Therapeutic Activity Therapeutic Activity Time Entry 16 Therapeutic Activity 1 reviewed HEP Therapeutic Activity 2 pt completed VRE x10 ea. Therapeutic Activity 3 answered questions PT Assessment Medical Staff Made Aware Yes Goals/Education Encounter Problems Encounter Problems (Active) Template: Physical Therapy Problem: PT Short Term Goals Dates: Start: 03/19/23 Goal: Pt will perform bed mobility with CGA Dates: Start: 03/19/23 Expected End: 03/20/23 Outcomes Date/Time User Outcome 03/20/23 1052 Haley He PTA Progressing Goal: Pt will perform transfers with SBA/FWW Dates: Start: 03/19/23 Expected End: 03/20/23 Outcomes Date/Time User Outcome 03/20/23 1052 Haley He PTA Progressing Goal: Pt will ambulate x150 ft with SBA/FWW Dates: Start: 03/19/23 Expected End: 03/20/23 Outcomes Date/Time User Outcome 03/20/23 1052 Haley He CLINICAL REHABILITATION AIDE Progressing Goal: Pt will ascend/descend stairs with CGA/LRAD Dates: Start: 03/19/23 Expected End: 03/20/23 Outcomes Date/Time User Outcome 03/19/23 1939 Palmira Miller, PT Progressing Goal: Pt will indicate understanding of knee protocol HEP to begin POD1 Dates: Start: 03/19/23 Expected End: 03/20/23 Outcomes Date/Time User Outcome 03/20/23 1249 Haley He CLINICAL REHABILITATION AIDE Progressing Encounter Problems (Resolved) There are no resolved problems. Education Documentation Home Exercise Program, taught by Haley He PTA at 03/20/2023 12:49 PM. Learner: Patient Readiness: Acceptance Method: Explanation, Handout Response: Verbalizes Understanding, Demonstrated Understanding Mobility Training, taught by Haley He PTA at 03/20/2023 12:49 PM. Learner: Patient Readiness: Acceptance Method: Explanation, Handout Response: Verbalizes Understanding, Demonstrated Understanding Explain call button use, taught by Haley He PTA at 03/20/2023 12:49 PM. Learner: Patient Readiness: Acceptance Method: Explanation, Handout Response: Verbalizes Understanding, Demonstrated Understanding Teach fall prevention measures, taught by Haley He PTA at 03/20/2023 12:49 PM. Learner: Patient Readiness: Acceptance Method: Explanation, Handout Response: Verbalizes Understanding, Demonstrated Understanding Home Exercise Program, taught by Haley He PTA at 03/20/2023 9:37 AM. Learner: Patient Readiness: Acceptance Method: Explanation, Demonstration Response: Verbalizes Understanding, Demonstrated Understanding Mobility Training, taught by Haley He PTA at 03/20/2023 9:37 AM. Learner: Patient Readiness: Acceptance Method: Explanation, Demonstration Response: Verbalizes Understanding, Demonstrated Understanding Explain call button use, taught by Haley He PTA at 03/20/2023 9:37 AM. Learner: Patient Readiness: Acceptance Method: Explanation, Demonstration Response: Verbalizes Understanding, Demonstrated Understanding Teach fall prevention measures, taught by Haley He PTA at 03/20/2023 9:37 AM. Learner: Patient Readiness: Acceptance Method: Explanation, Demonstration Response: Verbalizes Understanding, Demonstrated Understanding Education Comments No comments found. * Debbie Kapadia RN - 03/20/2023 10:31 AM EDT Rosetta called from [facility] and she received the updated clinicals sent this morning andshe will begin precert. Patient updated. * Debbie Kapadia RN - 03/20/2023 9:56 AM EDT Called Rosetta at [facility] she is reviewing the referral now and faxed this mornings progress notes and PT note to her at [phone] * Haley He PTA - 03/20/2023 9:37 AM EDT [facility] Physical Therapy Treatment PT Discharge Recommendations: nursing home facility placement Distance Ambulated (ft): 30 Device: Rolling walker L Knee Flexion 0-140: 0-46 Fall prevention education provided including use of call light in hospital, use of appropriate assistive device, safe mobility techniques, and safety measures at home. Continue PT as per POC. Subjective/Objective/Assessment/Plan Pt c/o skin irritation on posterior aspect of L knee and around/under the prevena vac tape. RN notified. HEP completed x10 ea with much encouragement. See below for activities complete. Assisted pt with BR transfers, +void. Pt sat in a chair at end of session with call light in reach and all needs met. Cont as per POC until discharged to SNF for cont skilled services. Pt to receive a PICC today 03/20/23936 General Family/Caregiver Present No PT Time Calculation PT Start Time 0937 PT Stop Time 1007 PT Time Calculation (min) 30 min Precautions Medical Precautions Fall Risk Safety Interventions Call miller within reach;Gait belt LLE Weight Bearing Status As Tolerated Pain Assessment Pain Assessment 0-10 Pain Score 8 Pain Type Surgical pain Pain Location Knee Pain Orientation Left Cognition Arousal/Alertness Appropriate responses to stimuli Orientation Level Oriented X4 Following Commands Follows all commands and directions without difficulty Activity Tolerance Endurance Endurance does not limit participation in activity Bed Mobility Lying to Sitting Assistance Contact guard Transfers Sit to Stand Assistance Contact guard Ambulation Walking Assistance Contact guard Device Rolling walker Distance Ambulated (ft) 30 AROM LLE (degrees) L Knee Flexion 0-140 0-46 Procedures Procedures Gait Training;Therapeutic Exercise Gait Training Gait Training Time Entry 15 Therapeutic Exercise Therapeutic Exercise Time Entry 15 Therapeutic Exercise Activity 1 HEP Therapeutic Exercise Activity 2 VRE PT Assessment Medical Staff Made Aware Yes Goals/Education Encounter Problems Encounter Problems (Active) Template: Physical Therapy Problem: PT Short Term Goals Dates: Start: 03/19/23 Goal: Pt will perform bed mobility with CGA Dates: Start: 03/19/23 Expected End: 03/20/23 Outcomes Date/Time User Outcome 03/20/23 1052 Haley He PTA Progressing Goal: Pt will perform transfers with SBA/FWW Dates: Start: 03/19/23 Expected End: 03/20/23 Outcomes Date/Time User Outcome 03/20/23 1052 Haley He PTA Progressing Goal: Pt will ambulate x150 ft with SBA/FWW Dates: Start: 03/19/23 Expected End: 03/20/23 Outcomes Date/Time User Outcome 03/20/23 1052 Haley He PTA Progressing Goal: Pt will ascend/descend stairs with CGA/LRAD Dates: Start: 03/19/23 Expected End: 03/20/23 Outcomes Date/Time User Outcome 03/19/23 1939 Palmira Miller, PT Progressing Goal: Pt will indicate understanding of knee protocol HEP to begin POD1 Dates: Start: 03/19/23 Expected End: 03/20/23 Outcomes Date/Time User Outcome 03/20/23 1052 Haley He PTA Progressing Encounter Problems (Resolved) There are no resolved problems. Education Documentation Home Exercise Program, taught by Haley He PTA at 03/20/2023 9:37 AM. Learner: Patient Readiness: Acceptance Method: Explanation, Demonstration Response: Verbalizes Understanding, Demonstrated Understanding Mobility Training, taught by Haley He PTA at 03/20/2023 9:37 AM. Learner: Patient Readiness: Acceptance Method: Explanation, Demonstration Response: Verbalizes Understanding, Demonstrated Understanding Explain call button use, taught by Haley He PTA at 03/20/2023 9:37 AM. Learner: Patient Readiness: Acceptance Method: Explanation, Demonstration Response: Verbalizes Understanding, Demonstrated Understanding Teach fall prevention measures, taught by Haley He PTA at 03/20/2023 9:37 AM. Learner: Patient Readiness: Acceptance Method: Explanation, Demonstration Response: Verbalizes Understanding, Demonstrated Understanding Education Comments No comments found. * Debbie Kapadia RN - 03/20/2023 8:34 AM EDT Spoke to Dr Bryan per phone and he does want a PICC line placed today Order entered and PICC RN updated. * Carlos Gomez DO - 03/20/2023 7:07 AM EDT [facility] Progress Note 1 Day Post-Op: * Left knee I & D LOS: 0 days Subjective: Patient doing well. States that pain is tolerable with current regimen. Tolerating dietwithout nausea or vomiting. offic cx rare pasteurella Objective: Last Recorded Vitals: Blood pressure 115/69, pulse 74, temperature 36.7 C (98.1 F), temperature source Temporal, resp. rate 12, height 1.6 m (63 ), weight 103 kg (226 lb 3.1 oz), SpO2 93 %. Gen: comfortable, NAD Focused Musculoskeletal Exam: VICKI drain: 27.5/10 output cc prevena incisional wound vac: 0 cc output Surgical incision/dressing clean, dry, and intact. No drainage or swelling. Neurovascularly intact in the operative extremity. LABS: Lab Results Component Value Date WBC 11.5 (H) 03/20/2023 HGB 12.2 03/20/2023 HCT 38.9 03/20/2023 MCV 89.8 03/20/2023 PLT 270 03/20/2023 Lab Results Component Value Date GLUCOSE 116 (H) 03/20/2023 CALCIUM 9.0 03/20/2023 NA 138 03/20/2023 K 4.9 03/20/2023 CO2 23 03/20/2023 CL 104 03/20/2023 BUN 31 (H) 03/20/2023 CREATININE 1.03 03/20/2023 No results found for: INR, PROTIME No results found for: PTT Assessment & Plan 67 y.o. female 1 Day Post-Op status post * Left knee I & D. - WBAT on the operative extremity - Xarelto 10mg daily x 2 weeks, then Aspirin 81mg BID x 4 weeks for DVT ppx - PT - prevena may be removed in 7-10 days by facility - ID consult, appreciate recs - Follow-up in clinic in 2 -3 weeks for staple removal - Plan for discharge to Subacute Rehab Facility ([facility] or [facility]) when cleared by PT and medically stable * Fredis Squires MD - 03/20/2023 6:42 AM EDT [facility] - PROGRESS NOTE Patient Name : Castillo Graham Patient : 1955 Patient Diagnosis : Perioperative Medical Management Provider Name : Fredis Squires MD Date Of Service : 03/20/23 Patient currently recovering POD#1. SUBJECTIVE : Pain control post-operatively : Patient complaining of significant pain from surgery and requiring both PO and IV pain medication for control. REVIEW OF SYSTEMS : Constitutional: Denies fever Head/Neck: Denies headache Eye: Denies eye pain Ear/Nose/Mouth/Throat: Denies sore throat Cardiovascular: Denies chest pain or pressure Respiratory: Denies shortness of breath or dyspnea Neurologic : Denies any new numbness. Denies any new weakness Gastrointestinal: Denies abdominal cramping or distention.. Genitourinary: Denies urinary retention or incomplete voiding. Skin: Denies any new rash IMPRESSION AND PLAN : Prophylaxis For Prevention of Deep Vein Thrombosis ( DVT ) Prophylaxis should be based on the ACCP Guidelines and will be per surgeon's service per protocol. Management of NSAIDS, Anticoagulants, and Antibiotics will be per surgeon's service according to protocol. Patient should be encouraged regarding venous return exercises and ambulation. This patient will be considered acceptable for discharge from a medical perspective only if the following criteria are met . . . 1. Oxygen Saturations > 90% on Room Air 2. Able to void without difficulty 3. Meets Physical Therapy goals for discharge 4. Passing Flatus 5. Cleared for discharge by surgeon and PT I have seen the patient personally today and have reviewed all available labs and imaging results as documented below under the results section. Additionally, I have reviewed all available progress notes from the surgical staff, physical therapist, and other surgical services. This patient's medication list, including their prescription drugs, have been reviewed and specificrecommendations as they relate to surgery and surgical recovery have been provided as outlined under the impression and plan. A medical consult has been ordered by the surgeon for perioperative management of the patient's chronic medical conditions including the following . . S/p Left Knee I&D with Revision 03/19/23 NOTE Oxycodone dose increased this AM 02/24/17 Echo-Mildly reduced LV systolic function 02/24/17 Lexiscan BRAND RECORDER-mildly diminished LV systolic function with an EF of 48% 03/05/17-Non obstructive 3 vessel CAD This patient has a known history of Deep Vein Thrombosis ( DVT ) ( Z 86.718 ) in the past. They will require multi-modality treatments or interventions to prevent a recurrence. This should include education on venous return exercises which have been provided by myself and will be emphasized with each follow-up interaction. In addition, aggressive goals for early ambulation and timely physical therapy for mobility and independence are recommended to help prevent a DVT. I recommend providing pharmacologic and non-pharmacologic prophylaxis per the ACCP Guidelines. This would include Lovenox, Arixtra, a New Oral Anticoagulant ( NOAC ) or a clinically proven equivalent. Ultimately, the final decision regarding anticoagulation for DVT prophylaxis / prevention [facility]. Hypertension ( I 10 ) Chronic pre-existing condition present on admission. Currently being managed with standard anti-hypertensive medications. It should be noted that BRI Inhibitors and ARBlockers and Diuretics are not normally given the morning of surgery due to the risks for perioperative hypotension. This patient's blood pressure will need to be monitored closely throughout their hospitalization since potential perioperative issues such as dehydration, pain level, and the use of anestheticsor pain medications can cause BP fluctuations. Additional BP control can be provided with the addition of PO or PRN Clonidine. BP Readings from Last 3 Encounters: 03/20/23 115/69 10/06/22 134/75 Obstructive Sleep Apnea ( JEREMY ) ( G 47.33 ) Chronic pre-existing condition present on admission. This patient DOES NOT USE either CPAP or BiPAP at home. JEREMY increases the risks for postoperative hypoxia and hypoventilation. This patient should be watched on continuous pulse oximetry and a sleep apnea protocol throughout their hospitalization. They will require close monitoring of respiratory status with frequent vitals and continuous pulse oximetry, especially if any sedatives or narcotic medications are given. Gastroesophageal Reflux / GERD ( K 21.9 ) Chronic pre-existing condition present on admission. Currently stable on a Proton Pump Inhibitor ( PPI ) for treatment. GERD can be exacerbated by surgery oranesthesia due to increased stress, delayed gastric emptying, and supine positioning. Plan to continue prescribed PPI +/- antihistamine before and after surgery for reduction of gastric acidity. Congestive Heart Failure; Chronic Right-Sided CHF with mild LV Dysfunction and Mild Pulmonary HTN -on Diuretics - Currently stable or compensated. Plan to watch sats and lung exam closely while in hospital - Continue Telemetry. Plan to continue diuretics and cardiac medications where applicable. Chronic Peripheral Edema ( R 60.9 ) - Chronic pre-existing condition present on admission - increased risk of Deep Vein Thrombosis; prophylaxis per surgery - plan to continue Diuretics if applicable. Asthma (J 45.909 ) Chronic pre-existing condition present on admission. This patient denies any current symptoms or recent exacerbation. They will be at an increased risk of pulmonary complications related to surgery including bronchitis and pneumonia. I recommend patient continue their prescribed b ronchodilators without interruption. This would include the morning of surgery in order to prevent bronchospasm or any hypoventilation during surgery, even if they are stable. I would also recommend close monitoring of lung function and frequent pulmonary auscultation following surgery to watch forany wheezing. Nebulized bronchodilators should be administered if necessary. Supplemental oxygen should be used as necessary to avoid hypoxia. Would recommend caution with the addition of any sedatives mediations or narcotics which can decrease respiratory drive and contribute to hypoventilation and hypoxia. This patient should also be monitored on continuous pulse oximetry ATC until confirmed sta ble. Early ambulation and mobility and incentive spirometry have also been shown to decrease pulmonary complications related to surgery, especially in patients with Asthma. These interventions shouldbe encouraged as soon as possible following surgery. Coronary Artery Disease ( I 25.10 ) LISTED MILD FROM CATH IN 2017 - Chronic pre-existing diagnosis for this patient based on review of previous records. This represents a high risk diagnosis and places the patient at a higher risk of perioperative cardiac issues including ischemia or arrhythmias. This is considered a chronic illness that poses a threat to life or bodily function as it relates to perioperative care. Standard recommendations include watching patient on Telemetry during hospitalization and continuing all cardiac medications as prescribed, especially if they are related to preventing cardiac ischemia.based on previous Cardiac Catheterization results. Left Bundle Branch Block (LBBB) noted on EKG. Patient denies any recent or associated cardiac symptoms and this would not represent an overt contraindication to surgery. Anemia ( D 64.9 ) - Mild to moderate. Patient currently without indications for blood transfusion but will require continued to monitoring in hospital with Pulse Oximetry, Supplemental Oxygen to keepSats >= 90%, and Monitoring of Vitals including HR and BP closely. Results from last 7 days Lab Units 03/20/23 0402 03/19/23 1145 HEMOGLOBIN g/dL 12.2 12.9 HEMATOCRIT % 38.9 40.6 Neuropathy ( G 62.9 ). Chronic pre-existing condition present on admission. Peripheral per records.Plan to continue previously prescribed medications for treatment and watch for recurrent or worsening symptoms. Pre-Diabetes noted ( R 73.09) - Chronic pre-existing condition present prior to admission. Plan to continue or encourage dietary modifications. HGB A1C 5.7% ON 03/19/23 0 Lab Value Date/Time GLUCOSE 116 (H) 03/20/2023 0404 GLUCOSE 106 (H) 03/20/2023 0402 GLUCOSE 131 (H) 03/19/2023 2009 GLUCOSE 124 (H) 03/19/2023 1538 GLUCOSE 97 03/19/2023 1145 GLUCOSE 93 10/06/2022 0446 GLUCOSE 133 (H) 10/05/2022 2103 GLUCOSE 101 (H) 10/05/2022 1802 GLUCOSE 141 (H) 10/05/2022 1121 Morbid Obesity ( E 66.01 ) BMI >= 40. At least in part related to excess calorie intake. Dietarydiscretion is advised. It has been recommended they follow up with their PCP regarding weight loss intervention. Obesity increases the risks for postoperative hypoxia and hypoventilation. This patient will require close monitoring of respiratory status with frequent vitals and continuous pulse oxime try, especially if any sedatives or narcotic medications are given. Obesity also represents an additional risk factor for Deep Vein Thrombosis ( DVT ). They will require multi-modality treatments or interventions to prevent a DVT. This should include education on venous return exercises. In addition, aggressive goals for early ambulation and timely physical therapy for mobility and independenceare recommended to help prevent a DVT. Anticoagulation for DVT prophylaxis / prevention will be perthe discretion of the primary surgical service per protocol. Fibromyalgia ( M 79.7 ) noted; Chronic pre-existing condition present on admission - plan to resumePhysical Therapy and any prescribed medications for FM postoperatively. These medications are not ultimately necessary to give the morning of surgery. Chronic Kidney Disease ( N 18.9 ) Known previous diagnosis prior to admission. This represents a high risk diagnosis and patient will be at an increased risk of renal insufficiency or acute kidney injury ( KARLOS ) related to surgery and recovery. Recommendations include providing adequate hydration, urine output, and a stable BP throughout the perioperative time period. This may require monitoring such as a chance catheter. I will be assisting in these interventions as indicated. Avoidance of any additional nephrotoxins including LARA II inhibitors such as Mobic ( Meloxicam ) and Celebrex ( Celecoxib ) is also advised. BRI I and ARB's should be held postoperatively until kidney function, urine output, and BP are confirmed stable. Stage 1: Normal GFR with persistent albuminemia with GFR >90 Creatinine Date Value Ref Range Status 03/20/2023 1.03 0.60 - 1.30 mg/dL Final 03/19/2023 1.10 0.60 - 1.30 mg/dL Final 10/04/2022 0.89 0.60 - 1.30 mg/dL Final 10/03/2022 0.97 0.60 - 1.30 mg/dL Final 09/19/2022 1.04 0.60 - 1.30 mg/dL Final Gout ( M 10.9 ); chronic pre-existing condition present on admission but without current exacerbation noted. Plan to stop all NSAIDS prior to surgical procedure due to anticoagulant effects. Tylenol would be acceptable for alternative pain control. Medications for treatment of Gout other than NSAIDS can be continued but are not ultimately necessary the morning of surgery. Plan to continue to watch for symptoms. VITALS : Visit Vitals BP 115/69 (BP Location: Left arm, Patient Position: Sitting) Pulse 74 Temp 36.7 C (98.1 F) (Temporal) Resp 12 Ht 1.6 m (63 ) Wt 103 kg (226 lb 3.1 oz) SpO2 93% BMI 40.07 kg/m Smoking Status Former BSA 2.04 m PHYSICAL EXAM : General - No acute distress; Alert and conversational Skin - Normal skin turgor and texture; No rashes or ulcerations noted Eyes - PERRLA; Anicteric sclerae ENMT - Hearing Intact; Oropharynx clear with moist mucosa Cardiology - S1 S2 with regular rhythm. No tachycardia noted; No peripheral edema noted Respiratory - Clear to auscultate bilaterally; No accessory respiratory muscle use noted; No wheezing noted Abdominal - Non-tender to palpation; Soft and non-tender without obvious mass; Active bowel sounds noted No clinical evidence of postoperative ileus at this time Musculoskeletal - No clubbing of digits noted; No cyanosis of digits noted No calf tenderness noted on palpation Psychiatric - Appropriate affect, Alert and oriented to person, place, and situation RESULTS : Hemoglobin A1c Order: [id number] Status: Final result Visible to patient: Yes (not seen) 0 Result Notes Component Ref Range & Units 1 d ago 6 mo ago Hemoglobin A1C <=5.6 % 5.7 High 5.6 CM Mean Bld Glu Estim. mg/dL 117 114 Resulting Agency [facility] Narrative Performed by: [facility] HbA1c values of 5.7-6.4 percent indicate an increased risk for developing diabetes mellitus. HbA1c values greater than or equal to 6.5 percent are diagnostic of diabetes mellitus. For diagnosis of diabetes in individuals without unequivocal hyperglycemia, results should be confirmed by repeat testing. Specimen Collected: 03/19/23 11:45 EDT Last Resulted: 03/19/23 19:06 EDT LABS CBC Lab Results Component Value Date WBC 11.5 (H) 03/20/2023 HGB 12.2 03/20/2023 HCT 38.9 03/20/2023 MCV 89.8 03/20/2023 PLT 270 03/20/2023 Results from last 7 days Lab Units 03/20/23 0402 03/19/23 1145 WBC AUTO K/mcL 11.5* 12.4* HEMOGLOBIN g/dL 12.2 12.9 HEMATOCRIT % 38.9 40.6 PLATELETS K/mcL 270 268 LYMPHS PCT AUTO % 9.3* 10.3* MONO PCT AUTO % 5.3 8.1 EOS PCT AUTO % 0.0 0.6 CMP Lab Results Component Value Date NA 138 03/20/2023 K 4.9 03/20/2023 CL 104 03/20/2023 CO2 23 03/20/2023 BUN 31 (H) 03/20/2023 CREATININE 1.03 03/20/2023 GLUCOSE 116 (H) 03/20/2023 Results from last 7 days Lab Units 03/20/23 0404 03/20/23 0402 03/19/23 2009 03/19/23 1538 03/19/23 1145 SODIUM mmol/L -- 138 -- -- 140 POTASSIUM mmol/L -- 4.9 -- -- 4.4 CHLORIDE mmol/L -- 104 -- -- 104 CO2 mmol/L -- 23 -- -- 27 BUN mg/dL -- 31* -- -- 36* CREATININE mg/dL -- 1.03 -- -- 1.10 POCT GLUCOSE mg/dL 116* -- 131* 124* -- GLUCOSE mg/dL -- 106* -- -- 97 EGFR mL/min/1.73m2 -- 60 -- -- 55* Results from last 7 days Lab Units 03/20/23 0402 03/19/23 1145 CALCIUM mg/dL 9.0 10.2 GLUCOSE 0 Lab Value Date/Time GLUCOSE 116 (H) 03/20/2023 0404 GLUCOSE 106 (H) 03/20/2023 0402 GLUCOSE 131 (H) 03/19/2023 2009 GLUCOSE 124 (H) 03/19/2023 1538 GLUCOSE 97 03/19/2023 1145 GLUCOSE 93 10/06/2022 0446 GLUCOSE 133 (H) 10/05/2022 2103 GLUCOSE 101 (H) 10/05/2022 1802 GLUCOSE 141 (H) 10/05/2022 1121 COAGULATION TESTS LIPID PANEL THYROID TESTS No results found for: TSH URINE ANALYSIS No lab exists for component: [place] URINE CULTURE No results found for: URINECX BLOOD CULTURE No results found for: BLOODCX IMAGING XR Knee 1-2 Views Left Narrative: EXAMINATION TYPE: XR KNEE 1-2 VIEWS LEFT DATE OF EXAM : 10/02/2022 1:29 PM HISTORY: post op in pacu, COMPARISON: NONE FINDINGS: Status post left total knee arthroplasty. Hardware in appropriate position. Gas within and adjacentto the knee joint. Spurring from the patella. There our a few loose bodies in the joint. Skin almita in place. No acute fracture or dislocation. Impression: 1. Left total knee arthroplasty in appropriate position. -------- FINAL REPORT -------- Dictated By: Vlad Fiore Dictated Date: 10/02/2022 15:21 Assigned Physician: Vlad Fiore Reviewed and Electronically Signed By: Vlad Fiore Signed Date: 10/02/2022 15:22 Workstation ID: [id number] Transcribed By: Self Edit Transcribed Date: 10/02/2022 15:21 STRESS TEST No results found for this or any previous visit. ECHOCARDIOGRAM No results found for this or any previous visit. CATHETERIZATION No results found for this or any previous visit. ELECTROPHYSIOLOGY RESULT No results found for this or any previous visit. VASCULAR RESULT No results found for this or any previous visit. * Jocelyn Muller RN - 03/19/2023 7:59 PM EDT Problem: Health Behavior: Goal: Patient Specific Outcome Outcome: Progressing Problem: Sensory: Goal: Demonstrates/reports adequate pain control Outcome: Progressing Problem: Coping: Goal: Verbalizations of alleviation of anxiety will increase Outcome: Progressing Problem: Cognitive: Goal: Knowledge of disease or condition will improve Outcome: Progressing Problem: Physical Regulation: Goal: Postoperative complications will be avoided or minimized Outcome: Progressing Goal: Ability to maintain clinical measurements within normal limits will improve Outcome: Progressing Problem: Skin Integrity: Goal: Patient will remain free of injury and skin integrity maintained Outcome: Progressing Problem: Respiratory: Goal: Knowledge of JEREMY (Obstructive Sleep Apnea) risk and follow-up will improve Outcome: Progressing Problem: Cognitive: Goal: Knowledge of Transition Instructions will improve Outcome: Progressing Problem: VTE Prevention: Goal: Will remain free of signs and symptoms of VTE Outcome: Progressing Problem: Activity: Goal: Ability to ambulate will improve Outcome: Progressing Goal: Range of joint motion will be supported Outcome: Progressing Problem: Falls: Goal: (Goal) Patient will experience maximum safety and reduce risk for falls. Outcome: Progressing Goal: Patient will not fall or injure themselves during hospitalization. Outcome: Progressing Problem: Physical Regulation: Goal: Signs and symptoms of infection will decrease Outcome: Progressing Goal: Complications related to the disease process, condition or treatment will be avoided or minimized Outcome: Progressing Goal: Diagnostic test results will improve Outcome: Progressing Problem: Activity: Goal: Mobility will improve Outcome: Progressing Goals: Manage infection, control pain, improve mobility Identify possible barriers to meeting goals/advancing plan of care: infection, pain, mobility, oxygent saturation, hemovac output Stability of the patient: Moderately Stable - Low risk of patient condition declining or worsening End of Shift Summary: Patient begins progression towards set goals. Patient is voiding, but has notpassed flatus. Patient has a Prevena wound vac with no output. Patient ambulated with staff withoutdifficulty. Patient plans to discharge to a alf facility. * Palmira Miller, PT - 03/19/2023 6:32 PM EDT [facility] Physical Therapy Evaluation PT Discharge Recommendations: nursing home facility placement Distance Ambulated (ft): 30 Device: Rolling walker LLE Weight Bearing Status: As Tolerated L Knee Flexion 0-140: 0-50 Strength RLE R Ankle Dorsiflexion: 5/5 R Ankle Plantar Flexion: 5/5 Strength LLE L Knee Flexion: 3+/5 L Knee Extension: 3+/5 L Ankle Dorsiflexion: 5/5 L Ankle Plantar Flexion: 5/5 AM-PAC: * Anusha Barber MD - Primary Procedure(s): Left knee I & D Day of Surgery Fall prevention education provided including use of call light in hospital, use of appropriate assistive device, safe mobility techniques, and safety measures at home. Continue PT as per POC. In to see pt with RN permission. Pt reluctant to PT services but agreeable to ambulate to BR. Pt requesting D/C to SNF d/t living home alone and not having anyone who could stay with her to assist. PT educated pt in regards to B LE venous return exercises, knee protocol HEP to begin POD1 with handout, and use of pink pillow under heel when resting to encourage knee extension. Pt gave verbal understanding. See below for complete mobility performance details. Pt left supine in bed with B DVT pumps on, icepack to L knee, call light/phone within reach and all needs met. Patient Active Problem List Diagnosis Mechanical loosening of internal left knee prosthetic joint ([facility]) Mechanical loosening of internal left knee prosthetic joint, subsequent encounter S/P left knee surgery Past Medical History: Diagnosis Date Anemia Arthritis Asthma CHF (congestive heart failure) ([facility]) Chronic kidney disease CKD 2/3 COPD (chronic obstructive pulmonary disease) ([facility]) Dental disease full dentures Diabetes mellitus ([facility]) DVT of leg (deep venous thrombosis) ([facility]) 2020 left leg GERD (gastroesophageal reflux disease) Hypertension Osteoporosis Shortness of breath Sleep apnea no device Wears dentures Wears glasses Past Surgical History: Procedure Laterality Date APPENDECTOMY SECTION, LOW TRANSVERSE JOINT REPLACEMENT Left revision KNEE ARTHROPLASTY Bilateral TONSILLECTOMY UPPER GASTROINTESTINAL ENDOSCOPY Objective 03/19/23 183 General Family/Caregiver Present No PT Time Calculation PT Start Time 1832 PT Stop Time 190 PT Time Calculation (min) 30 min Precautions Medical Precautions Fall Risk (L prevena and hemovac present) Safety Interventions Call miller within reach;Gait belt LLE Weight Bearing Status As Tolerated Pain Assessment Pain Assessment 0-10 Pain Score 9 FACES Pain Scale - Revised 4 Pain Type Surgical pain Pain Location Knee Pain Orientation Left Pain Descriptors Sharp Pain Interventions Cold applied;RN notified (Comment);Repositioned;Ambulation/increased activity Cognition Arousal/Alertness Appropriate responses to stimuli Orientation Level Oriented X4 Following Commands Follows all commands and directions without difficulty Bed Mobility Sitting to Lying Assistance Contact guard Lying to Sitting Assistance Minimum assistance Transfers Sit to Stand Assistance Contact guard Toilet Transfer Assistance Contact guard Ambulation Walking Assistance Contact guard Device Rolling walker Distance Ambulated (ft) 30 Comments Pt ambulating with step-through gait pattern Strength RLE R Ankle Dorsiflexion 5/5 R Ankle Plantar Flexion 5/5 AROM LLE (degrees) L Knee Flexion 0-140 0-50 Strength LLE L Knee Flexion 3+/5 L Knee Extension 3+/5 L Ankle Dorsiflexion 5/5 L Ankle Plantar Flexion 5/5 Procedures Procedures Gait Training Gait Training Gait Training Time Entry 15 Gait Training Activity 1 Gait training with FWW PT Assessment PT Assessment/ Barriers to discharge Decreased strength;Decreased range of motion;Impaired gait;Decreased mobility;Pain Prognosis Excellent Evaluation/Treatment Tolerance Patient tolerated treatment well Medical Staff Made Aware Yes Comments MARIBELL Banks notified of pt performance, (+) void when up to BR, and pain level Plan Treatment/Interventions Functional transfer training;LE strengthening/ROM;Patient/family training;Equipment eval/education;Bed mobility;Gait training;Compensatory technique education;Continued evaluation PT Plan Skilled PT PT Frequency 7 days per week PT Duration of Sessions PRN PT Treatments per day 1-2 times per day PT Discharge Recommendations nursing home facility placement PT - Evaluation Status Complete Treatment performed during evaluation: Gait Training Gait Training Time Entry: 15 Gait Training Activity 1: Gait training with FWW Goals and Education Encounter Problems Encounter Problems (Active) Template: Physical Therapy Problem: PT Short Term Goals Dates: Start: 03/19/23 Goal: Pt will perform bed mobility with CGA Dates: Start: 03/19/23 Expected End: 03/20/23 Outcomes Date/Time User Outcome 03/19/231938 Palmira Miller, PT Progressing Goal: Pt will perform transfers with SBA/FWW Dates: Start: 03/19/23 Expected End: 03/20/23 Outcomes Date/Time User Outcome 03/19/231938 Palmira Miller, PT Progressing Goal: Pt will ambulate x150 ft with SBA/FWW Dates: Start: 03/19/23 Expected End: 03/20/23 Outcomes Date/Time User Outcome 03/19/231938 Palmira Miller, PT Progressing Goal: Pt will ascend/descend stairs with CGA/LRAD Dates: Start: 03/19/23 Expected End: 03/20/23 Outcomes Date/Time User Outcome 03/19/231938 Palmira Miller PT Progressing Goal: Pt will indicate understanding of knee protocol HEP to begin POD1 Dates: Start: 03/19/23 Expected End: 03/20/23 Outcomes Date/Time User Outcome 03/19/231938 Palmira Miller PT Progressing Encounter Problems (Resolved) There are no resolved problems. Education Documentation Home Exercise Program, taught by Palmira Miller PT at 03/19/2023 7:39 PM. Learner: Patient Readiness: Acceptance Method: Explanation, Demonstration, Handout Response: Verbalizes Understanding Mobility Training, taught by Palmira Miller PT at 03/19/2023 7:39 PM. Learner: Patient Readiness: Acceptance Method: Explanation, Demonstration, Handout Response: Verbalizes Understanding Explain call button use, taught by Palmira Miller PT at 03/19/2023 7:39 PM. Learner: Patient Readiness: Acceptance Method: Explanation Response: Verbalizes Understanding Teach fall prevention measures, taught by Palmira Miller PT at 03/19/2023 7:39 PM. Learner: Patient Readiness: Acceptance Method: Explanation Response: Verbalizes Understanding Education Comments No comments found. * Debbie Kapadia RN - 03/19/2023 5:26 PM EDT Followed up with Сергей at [place]. [phone] . Admissions does have a skilled bed And obtained updated fax number and refaxed referral to [phone]. * Debbie Kapadia RN - 03/19/2023 5:19 PM EDT 03/19/23 1718 Discharge Planning Living Arrangements Children Support Systems Children Assistance Needed skilled care Type of Residence Private residence Patient expects to be discharged to: SNF Does the patient need discharge transport arranged? No Follow Up Needs/Requests none Initial Transition Plan Initial Transition Plan [facility] Back up Transition Plan Back up Transition plan [facility] Patient is planning to go to SNF for [facility] in [place]. Will place a referral. Son to transport to SNF * Debbie Kapadia RN - 03/19/2023 5:18 PM EDT 03/19/23 9464 Patient Information Accompanied by/Relationship son Patient arrived from? Home Support Systems Children Services Requested Physical Therapy skilled Occupational Therapy skilled DME potential needs No Destination/Placement SNF Level of Care Skilled Rehab Potential good PCP and demographics confirmed The patient lives in a 1 story home with 3 SE 2 stairs with HR last one no HR. Her son lives with her but is not there much He works long hours at least 60 hrs per week and has a traveling job . She has a tub shower with no SB or room for a seat in the shower Standard low toilet. Has a FWW. Plan isSNF at discharge for rehab and safety before returning home. DVT prevention the leg pumps for discha rge Xarelto ordered and she can not follow with aspirin due to allergy to aspirin and the length ofthe xarelto will need to be addressed on rounds. Will need Rx's for discharge to SNF. Prevena in place. * Portia Sue RN - 03/19/2023 12:55 PM EDT Pt requesting rehab at discharge documented in this [facility]06-02-2023 Consult note* Aryan Bryan MD - 03/20/2023 3:58 PM EDTAssociated Order(s): IP CONSULT TO INFECTIOUS DISEASES Images from the original note were not included. INFECTIOUS DISEASES CONSULTATION NOTE Patient Name: Castillo Graham Admit Date: [id number] MR #: [id number] : 1955 Hospital Day: 2 Date of Consult: 03/20/23 Reason for Consultation: Prosthetic joint infection Assessment and Plan: 67 y.o. 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 She is doing well at this point. We have adjusted her antimicrobial regimen given early organism information as well as what may be an intolerance to her cefazolin. A PICC line has been placed. She is working on ECF placement upon discharge. We will be available to follow here with you in the hospital and adjust antimicrobial therapy as indicated by the clinical course and our findings. We will be available to assist with recommendationsfor antibiotic therapy plans at discharge and follow-up postdischarge. Thank you for your consultation Aryan Bryan MD Infectious Diseases History of Present Illness: 67 y.o. female presents to the hospital with Worsening swelling and pain of her left knee. She has a history of left total knee joint replacement about 6 years ago. She began to have problems with this and was referred for evaluation. She underwent total joint revision in September of this year. Sheprogressed through physical therapy with some struggles but actually became quite functional. She attended a picnic last Thursday and felt fine while she was there. She got in the car to go home and felt well however by the time she got home she had significant pain and stiffness in her knee. This progressively worsened. She went to go to mormonism on Thursday and pain was severe. 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 store to picket [employer] a few things and was able to get out of the car. However by the time she got her groceries back to the car she needed assistance in lifting her leg to get into the car to go home, and then needed help from neighbors to get out of the car when she got home. She was seen in the local emergency department given her issues and referred to her surgeons for an evaluation of these things. She was seen in the office for an opinion and an aspirate performed which was worrisome for infection. She was taken for incision and drainage yesterday with polyethylene liner exchange. 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 Sensitivity data is pending presently. He has a penicillin allergy which she indicated 40 or so years ago causes severe rash. She notes aspirin causes throat closing with rash. She has been receiving cefazolin although indicates she thinks she is having some nausea associated with this. Laboratory data available for review today reveals a white count of 11.5 with a creatinine of 1.03.Aspirate of the knee revealing 53,000 white cells. Physicians: Conrad Sosa DO (Family); No ref. provider found (Referring) History: Past Medical History: Diagnosis Date Anemia Arthritis Asthma CHF (congestive heart failure) ([facility]) Chronic kidney disease CKD 2/3 COPD (chronic obstructive pulmonary disease) ([facility]) Dental disease full dentures Diabetes mellitus ([facility]) DVT of leg (deep venous thrombosis) ([facility]) 2020 left leg GERD (gastroesophageal reflux disease) Hypertension Osteoporosis Shortness of breath Sleep apnea no device Wears dentures Wears glasses Past Surgical History: Procedure Laterality Date APPENDECTOMY SECTION, LOW TRANSVERSE JOINT REPLACEMENT Left revision KNEE ARTHROPLASTY Bilateral TONSILLECTOMY UPPER GASTROINTESTINAL ENDOSCOPY No family history on file. Social History Tobacco Use Smoking status: Former Types: Cigarettes Smokeless tobacco: Never Vaping Use Vaping Use: Never used Substance Use Topics Alcohol use: Never Drug use: Never Family History: Reviewed Allergy Information: I have reviewed the patient's allergies. Allergies Allergen Reactions Adhesive Tape-Silicones Wound bandaids Aspirin Hives and Shortness of breath Latex Wound Penicillins Hives and Shortness of breath Sulfa (Sulfonamide Antibiotics) Hives and Shortness of breath Bactrim [Sulfamethoxazole-Trimethoprim] Unknown Contact Metal Agent Itching Gold and nickel cause itching. Ibuprofen Other Cant take due to kidney failure Nickel Itching Nylon Itching and Rash Patient states they are allergic to LOUIE hose Soap Rash dial Tramadol Unknown Home Medications: Current Outpatient Medications Medication Instructions acetaminophen (TYLENOL) 1,000 mg, oral, 3 times daily, Take every 8 hours for one week, then as needed. Do not exceed 3,000 mg daily limit. albuterol HFA (PROAIR HFA ; PROVENTIL HFA ; VENTOLIN HFA) 90 mcg/actuation inhaler 2 puffs, inhalation, Every 6 hours PRN alendronate (FOSAMAX) 70 mg, oral, Every 7 days, Mondays allopurinoL (ZYLOPRIM) 200 mg, oral, Daily budesonide-formoteroL (SYMBICORT) 160-4.5 mcg/actuation inhaler 2 puffs, inhalation, 2 times daily,Rinse mouth with water after use to reduce aftertaste and incidence of candidiasis. Do not swallow. bumetanide (BUMEX) 1 mg, oral, 2 times daily docusate sodium (COLACE) 100 mg, oral, 2 times daily PRN fluconazole (DIFLUCAN) 100 mg, oral, Daily PRN fluticasone propionate (FLONASE) 50 mcg/actuation nasal spray 1-2 sprays, Each Nostril, Daily PRN, Shake gently. Before first use, prime pump. After use, clean tip and replace cap. gabapentin (NEURONTIN) 300 mg, oral, 3 times daily magnesium oxide 500 mg, oral, Nightly Mounjaro 7.5 mg, subcutaneous, Weekly, Mondays ondansetron (ZOFRAN) 4 mg tablet oral, Every 8 hours PRN ondansetron (ZOFRAN) 4 mg, oral, Every 8 hours PRN oxyCODONE (OXY-IR) 5-10 mg, oral, Daily PRN oxyCODONE (ROXICODONE) 5-10 mg, oral, Every 4 hours PRN, Dx: Z96.6 pantoprazole (PROTONIX) 40 mg, oral, 2 times daily, Do not crush, chew, or split. no122/iron/folic acid ( MULTI ORAL) 1 tablet, oral, Weekly rivaroxaban (XARELTO) 10 mg, oral, Daily, Take with food. rivaroxaban (XARELTO) 10 mg, oral, Daily, Take with food. If insurance does not cover or other patient barriers exist, then change to: Lovenox 40 mg subcutaneous injection, Daily, Disp #14 tiZANidine (ZANAFLEX) 12-16 mg, oral, Nightly topiramate (TOPAMAX) 50 mg, oral, Daily at 4 pm Hospital Medications: Current Facility-Administered Medications Medication Dose Route Frequency Provider Last Rate Last Admin acetaminophen (TYLENOL) tablet 650 mg 650 mg oral q6h PRN Fredis Squires MD acetaminophen (TYLENOL) tablet 975 mg 975 mg oral q8h Fredis Squires MD 975 mg at 03/20/23 1433 albuterol 2.5 mg /3 mL (0.083 %) nebulizer solution 2.5 mg 2.5 mg nebulization q6h PRN Fredis Squires MD allopurinoL (ZYLOPRIM) tablet 200 mg 200 mg oral Daily Fredis Squires MD 200 mg at 03/20/23 0825 aluminum-magnesium hydroxide-simethicone (MAALOX) 200-200-20 mg/5 mL suspension 30 mL 30 mL oral 4xdaily PRN Fredis Squires MD bethanechol (URECHOLINE) tablet 25 mg 25 mg oral TID PRN Fredis Squires MD bisacodyL (DULCOLAX) suppository 10 mg 10 mg rectal Daily PRN Fredis Squires MD budesonide-formoteroL (SYMBICORT) 160-4.5 mcg/actuation inhaler 2 puff 2 puff inhalation BID Fredis Patterson MD bumetanide (BUMEX) tablet 1 mg 1 mg oral BID Fredis Squires MD ceFAZolin (ANCEF) 2 gram/20 mL IV syringe 2 g 2 g intravenous q8h JAVED Patel 2 g at 03/20/23 1433 cloNIDine (CATAPRES) tablet 0.1 mg 0.1 mg oral q6h PRN Fredis Squires MD diphenhydrAMINE (BENADRYL) capsule 25 mg 25 mg oral q4h PRN Fredis Squires MD 25 mg at 03/20/23 1019 diphenhydrAMINE (BENADRYL) injection 25 mg 25 mg intravenous q6h PRN JAVED Patel docusate sodium (COLACE) capsule 100 mg 100 mg oral BID Fredis Squires MD 100 mg at 03/20/23 0824 gabapentin (NEURONTIN) capsule 300 mg 300 mg oral TID Fredis Squires MD 300 mg at 03/20/23 1433 HYDROmorphone (DILAUDID) injection 0.5 mg 0.5 mg intravenous q2h PRN Fredis Squires MD 0.5 mg at 03/19/23 1707 magnesium hydroxide (MILK OF MAGNESIA) 400 mg/5 mL suspension 30 mL 30 mL oral Daily Fredis Squires MD 30 mL at 03/20/23 0824 magnesium oxide (MAG-OX) tablet 400 mg 400 mg oral Nightly Fredis Squires MD 400 mg at 03/19/232005 naloxone (NARCAN) injection 0.4 mg 0.4 mg intravenous Once PRN Fredis Squires MD ondansetron (PF) (ZOFRAN) injection 4 mg 4 mg intravenous q6h PRN Fredis Squires MD oxyCODONE (ROXICODONE) immediate release tablet 10 mg 10 mg oral q4h PRN Fredis Squires MD 10 mg at 03/20/23 1026 Or oxyCODONE (ROXICODONE) immediate release tablet 20 mg 20 mg oral q4h PRN Fredis Squires MD Oxygen Therapy, Adult inhalation PRN Fredis Squires MD pantoprazole (PROTONIX) EC tablet 40 mg 40 mg oral BID Fredis Squires MD 40 mg at 03/20/23 0825 polyethylene glycol (MIRALAX) packet 17 g 17 g oral Nightly Fredis Squires MD 17 g at 03/19/232006 promethazine (PHENERGAN) suppository 25 mg 25 mg rectal q6h PRN Fredis Squires MD promethazine (PHENERGAN) tablet 25 mg 25 mg oral q6h PRN Fredis Squires MD rivaroxaban (XARELTO) tablet 10 mg 10 mg oral Daily with dinner JAVED Patel senna (SENOKOT) tablet 8.6 mg 1 tablet oral BID Fredis Squires MD 8.6 mg at 03/20/23 0824 sodium chloride 0.9 % flush 10 mL 10 mL intravenous BID JAVED Patel 10 mL at 03/20/23 0828 And sodium chloride 0.9 % flush 10 mL 10 mL intravenous PRN JAVED Patel sodium chloride 0.9 % flush 10 mL 10 mL intravenous q8h Aryan Bryan MD 10 mL at 03/20/23 1141 sodium chloride 0.9 % flush 20 mL 20 mL intravenous PRN Aryan Bryan MD 20 mL at 03/20/23 1436 sodium chloride 0.9 % infusion 100 mL/hr intravenous Continuous Fredis Squires MD 100 mL/hr at 03/19/23 1706 100 mL/hr at 03/19/23 1706 tiZANidine (ZANAFLEX) tablet 8 mg 8 mg oral Daily PRN Fredis Squires MD topiramate (TOPAMAX) tablet 50 mg 50 mg oral Nightly Fredis Squires MD 50 mg at 03/19/232006 traZODone (DESYREL) tablet 25 mg 25 mg oral Nightly PRN Fredis Squires MD Review of Systems: A complete and thorough review of 10 or more systems was performed. Pertinent positives and negatives are listed in the History of Present Illness, other body systems were either found to be negativeor felt to be non-contributory. If a complete and thorough review of 10 or more systems could not be performed, what I have learnedhas come from the electronic medical record and other caregivers. Physical Examination: Vital Signs: Visit Vitals BP 105/75 (BP Location: Left arm, Patient Position: Sitting) Pulse 81 Temp 36.7 C (98.1 F) Resp 16 Ht 1.6 m (63 ) Wt 103 kg (226 lb 3.1 oz) SpO2 99% BMI 40.07 kg/m Smoking Status Former BSA 2.04 m General: comfortable appearing patient in no acute distress HEENT: The ears and nose are unremarkable oropharynx is free from thrush or exudate, EYES: Sclera are anicteric and the conjunctiva are clear. The pupils are equally round The gaze is conjugate. NECK: Supple, veins appear flat, trachea is midline No lymphadenopathy or thyromegaly. LUNGS: Clear anterior/laterally. No audible wheeze. Excursion is symmetric. HEART: Rhythm is regular, no JVD, No murmur, rubs or gallop. ABD: Soft, non distended, BS present. No jovanni organomegaly. Extr: Trace if any edema, no clubbing, or cyanosis. Neuro Psychiatric: Alert and oriented, cooperative. Mood and Affect are appropriate. Neuro: Moving lower & Upper extremities in a symmetric fashion, Sensation is preserved in all extremities in an equally symmetric fashion. Visible cranial nerves are grossly normal. Skin: Free from rash or lesion unless otherwise noted. Exceptions to above or other notable findings are listed in the history of present illness. Laboratory and Additional Data Reviewed: Lab Results Component Value Date WBC 11.5 (H) 03/20/2023 HGB 12.2 03/20/2023 HCT 38.9 03/20/2023 MCV 89.8 03/20/2023 PLT 270 03/20/2023 Lab Results Component Value Date GLUCOSE 89 03/20/2023 CALCIUM 9.0 03/20/2023 NA 138 03/20/2023 K 4.9 03/20/2023 CO2 23 03/20/2023 CL 104 03/20/2023 BUN 31 (H) 03/20/2023 CREATININE 1.03 03/20/2023 Cultures: Available culture data has been reviewed, pertinent features have been summarized in the HPI Radiology: Available radiology results have been reviewed, pertinent features have been summarized in the HPI With regard to infection the pertinent problems include: All of these issues impact upon the diagnosis and management of infection, including antimicrobial selection. I have reviewed the available information in the medical record for this admission, I have reviewedall available microbiologic data in the electronic medical record from this and any previous admissions, For all of the above reasons my consultation has involved medical decision making of a moderate to high level of complexity. [facility]ryan Bryan MD [id number] Consult note* Aryan Bryan MD - 03/20/2023 3:58 PM EDTAssociated Order(s): IP CONSULT TO INFECTIOUS DISEASES Images from the original note were not included. INFECTIOUS DISEASES CONSULTATION NOTE Patient Name: Castillo Graham Admit Date: 6001121 MR #: [id number] : 1955 Hospital Day: 2 Date of Consult: 03/20/23 Reason for Consultation: Prosthetic joint infection Assessment and Plan: 67 y.o. 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 She is doing well at this point. We have adjusted her antimicrobial regimen given early organism information as well as what may be an intolerance to her cefazolin. A PICC line has been placed. She is working on ECF placement upon discharge. We will be available to follow here with you in the hospital and adjust antimicrobial therapy as indicated by the clinical course and our findings. We will be available to assist with recommendationsfor antibiotic therapy plans at discharge and follow-up postdischarge. Thank you for your consultation Aryan Bryan MD Infectious Diseases History of Present Illness: 67 y.o. female presents to the hospital with Worsening swelling and pain of her left knee. She has a history of left total knee joint replacement about 6 years ago. She began to have problems with this and was referred for evaluation. She underwent total joint revision in September of this year. Sheprogressed through physical therapy with some struggles but actually became quite functional. She attended a picnic last Thursday and felt fine while she was there. She got in the car to go home and felt well however by the time she got home she had significant pain and stiffness in her knee. This progressively worsened. She went to go to mormonism on Thursday and pain was severe. 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 store to picket [employer] a few things and was able to get out of the car. However by the time she got her groceries back to the car she needed assistance in lifting her leg to get into the car to go home, and then needed help from neighbors to get out of the car when she got home. She was seen in the local emergency department given her issues and referred to her surgeons for an evaluation of these things. She was seen in the office for an opinion and an aspirate performed which was worrisome for infection. She was taken for incision and drainage yesterday with polyethylene liner exchange. 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 Sensitivity data is pending presently. He has a penicillin allergy which she indicated 40 or so years ago causes severe rash. She notes aspirin causes throat closing with rash. She has been receiving cefazolin although indicates she thinks she is having some nausea associated with this. Laboratory data available for review today reveals a white count of 11.5 with a creatinine of 1.03.Aspirate of the knee revealing 53,000 white cells. Physicians: Conrad Sosa, (Family); No ref. provider found (Referring) History: Past Medical History: Diagnosis Date Anemia Arthritis Asthma CHF (congestive heart failure) ([facility]) Chronic kidney disease CKD 2/3 COPD (chronic obstructive pulmonary disease) ([facility]) Dental disease full dentures Diabetes mellitus ([facility]) DVT of leg (deep venous thrombosis) ([facility]) 2020 left leg GERD (gastroesophageal reflux disease) Hypertension Osteoporosis Shortness of breath Sleep apnea no device Wears dentures Wears glasses Past Surgical History: Procedure Laterality Date APPENDECTOMY SECTION, LOW TRANSVERSE JOINT REPLACEMENT Left revision KNEE ARTHROPLASTY Bilateral TONSILLECTOMY UPPER GASTROINTESTINAL ENDOSCOPY No family history on file. Social History Tobacco Use Smoking status: Former Types: Cigarettes Smokeless tobacco: Never Vaping Use Vaping Use: Never used Substance Use Topics Alcohol use: Never Drug use: Never Family History: Reviewed Allergy Information: I have reviewed the patient's allergies. Allergies Allergen Reactions Adhesive Tape-Silicones Wound bandaids Aspirin Hives and Shortness of breath Latex Wound Penicillins Hives and Shortness of breath Sulfa (Sulfonamide Antibiotics) Hives and Shortness of breath Bactrim [Sulfamethoxazole-Trimethoprim] Unknown Contact Metal Agent Itching Gold and nickel cause itching. Ibuprofen Other Cant take due to kidney failure Nickel Itching Nylon Itching and Rash Patient states they are allergic to LOUIE hose Soap Rash dial Tramadol Unknown Home Medications: Current Outpatient Medications Medication Instructions acetaminophen (TYLENOL) 1,000 mg, oral, 3 times daily, Take every 8 hours for one week, then as needed. Do not exceed 3,000 mg daily limit. albuterol HFA (PROAIR HFA ; PROVENTIL HFA ; VENTOLIN HFA) 90 mcg/actuation inhaler 2 puffs, inhalation, Every 6 hours PRN alendronate (FOSAMAX) 70 mg, oral, Every 7 days, Mondays allopurinoL (ZYLOPRIM) 200 mg, oral, Daily budesonide-formoteroL (SYMBICORT) 160-4.5 mcg/actuation inhaler 2 puffs, inhalation, 2 times daily,Rinse mouth with water after use to reduce aftertaste and incidence of candidiasis. Do not swallow. bumetanide (BUMEX) 1 mg, oral, 2 times daily docusate sodium (COLACE) 100 mg, oral, 2 times daily PRN fluconazole (DIFLUCAN) 100 mg, oral, Daily PRN fluticasone propionate (FLONASE) 50 mcg/actuation nasal spray 1-2 sprays, Each Nostril, Daily PRN, Shake gently. Before first use, prime pump. After use, clean tip and replace cap. gabapentin (NEURONTIN) 300 mg, oral, 3 times daily magnesium oxide 500 mg, oral, Nightly Mounjaro 7.5 mg, subcutaneous, Weekly, Mondays ondansetron (ZOFRAN) 4 mg tablet oral, Every 8 hours PRN ondansetron (ZOFRAN) 4 mg, oral, Every 8 hours PRN oxyCODONE (OXY-IR) 5-10 mg, oral, Daily PRN oxyCODONE (ROXICODONE) 5-10 mg, oral, Every 4 hours PRN, Dx: Z96.6 pantoprazole (PROTONIX) 40 mg, oral, 2 times daily, Do not crush, chew, or split. no122/iron/folic acid ( MULTI ORAL) 1 tablet, oral, Weekly rivaroxaban (XARELTO) 10 mg, oral, Daily, Take with food. rivaroxaban (XARELTO) 10 mg, oral, Daily, Take with food. If insurance does not cover or other patient barriers exist, then change to: Lovenox 40 mg subcutaneous injection, Daily, Disp #14 tiZANidine (ZANAFLEX) 12-16 mg, oral, Nightly topiramate (TOPAMAX) 50 mg, oral, Daily at 4 pm Hospital Medications: Current Facility-Administered Medications Medication Dose Route Frequency Provider Last Rate Last Admin acetaminophen (TYLENOL) tablet 650 mg 650 mg oral q6h PRN Fredis Squires MD acetaminophen (TYLENOL) tablet 975 mg 975 mg oral q8h Fredis Squires MD 975 mg at 03/20/23 1433 albuterol 2.5 mg /3 mL (0.083 %) nebulizer solution 2.5 mg 2.5 mg nebulization q6h PRN Fredis Squires MD allopurinoL (ZYLOPRIM) tablet 200 mg 200 mg oral Daily Fredis Squires MD 200 mg at 03/20/23 0825 aluminum-magnesium hydroxide-simethicone (MAALOX) 200-200-20 mg/5 mL suspension 30 mL 30 mL oral 4xdaily PRN Fredis Squires MD bethanechol (URECHOLINE) tablet 25 mg 25 mg oral TID PRN Fredis Squires MD bisacodyL (DULCOLAX) suppository 10 mg 10 mg rectal Daily PRN Fredis Squires MD budesonide-formoteroL (SYMBICORT) 160-4.5 mcg/actuation inhaler 2 puff 2 puff inhalation BID Fredis Patterson MD bumetanide (BUMEX) tablet 1 mg 1 mg oral BID Fredis Squires MD ceFAZolin (ANCEF) 2 gram/20 mL IV syringe 2 g 2 g intravenous q8h JAVED Patel 2 g at 03/20/23 1433 cloNIDine (CATAPRES) tablet 0.1 mg 0.1 mg oral q6h PRN Fredis Squires MD diphenhydrAMINE (BENADRYL) capsule 25 mg 25 mg oral q4h PRN Fredis Squires MD 25 mg at 03/20/23 1019 diphenhydrAMINE (BENADRYL) injection 25 mg 25 mg intravenous q6h PRN JAVED Patel docusate sodium (COLACE) capsule 100 mg 100 mg oral BID Fredis Squires MD 100 mg at 03/20/23 0824 gabapentin (NEURONTIN) capsule 300 mg 300 mg oral TID Fredis Squires MD 300 mg at 03/20/23 1433 HYDROmorphone (DILAUDID) injection 0.5 mg 0.5 mg intravenous q2h PRN Fredis Squires MD 0.5 mg at 03/19/23 1707 magnesium hydroxide (MILK OF MAGNESIA) 400 mg/5 mL suspension 30 mL 30 mL oral Daily Fredis Squires MD 30 mL at 03/20/23 0824 magnesium oxide (MAG-OX) tablet 400 mg 400 mg oral Nightly Fredis Squires MD 400 mg at 03/19/232005 naloxone (NARCAN) injection 0.4 mg 0.4 mg intravenous Once PRN Fredis Squires MD ondansetron (PF) (ZOFRAN) injection 4 mg 4 mg intravenous q6h PRN Fredis Squires MD oxyCODONE (ROXICODONE) immediate release tablet 10 mg 10 mg oral q4h PRN Fredis Squires MD 10 mg at 03/20/23 1026 Or oxyCODONE (ROXICODONE) immediate release tablet 20 mg 20 mg oral q4h PRN Fredis Squires MD Oxygen Therapy, Adult inhalation PRN Fredis Squires MD pantoprazole (PROTONIX) EC tablet 40 mg 40 mg oral BID Fredis Squires MD 40 mg at 03/20/23 0825 polyethylene glycol (MIRALAX) packet 17 g 17 g oral Nightly Fredis Squires MD 17 g at 03/19/232006 promethazine (PHENERGAN) suppository 25 mg 25 mg rectal q6h PRN Fredis Squires MD promethazine (PHENERGAN) tablet 25 mg 25 mg oral q6h PRN Fredis Squires MD rivaroxaban (XARELTO) tablet 10 mg 10 mg oral Daily with dinner JAVED Patel senna (SENOKOT) tablet 8.6 mg 1 tablet oral BID Fredis Squires MD 8.6 mg at 03/20/23 0824 sodium chloride 0.9 % flush 10 mL 10 mL intravenous BID JAVED Patel 10 mL at 03/20/23 0828 And sodium chloride 0.9 % flush 10 mL 10 mL intravenous PRN JAVED Patel sodium chloride 0.9 % flush 10 mL 10 mL intravenous q8h Aryan Bryan MD 10 mL at 03/20/23 1141 sodium chloride 0.9 % flush 20 mL 20 mL intravenous PRN Aryan Bryan MD 20 mL at 03/20/23 1436 sodium chloride 0.9 % infusion 100 mL/hr intravenous Continuous Fredis Squires MD 100 mL/hr at 03/19/23 1706 100 mL/hr at 03/19/23 1706 tiZANidine (ZANAFLEX) tablet 8 mg 8 mg oral Daily PRN Fredis Squires MD topiramate (TOPAMAX) tablet 50 mg 50 mg oral Nightly Fredis Squires MD 50 mg at 03/19/232006 traZODone (DESYREL) tablet 25 mg 25 mg oral Nightly PRN Fredis Squirse MD Review of Systems: A complete and thorough review of 10 or more systems was performed. Pertinent positives and negatives are listed in the History of Present Illness, other body systems were either found to be negativeor felt to be non-contributory. If a complete and thorough review of 10 or more systems could not be performed, what I have learnedhas come from the electronic medical record and other caregivers. Physical Examination: Vital Signs: Visit Vitals BP 105/75 (BP Location: Left arm, Patient Position: Sitting) Pulse 81 Temp 36.7 C (98.1 F) Resp 16 Ht 1.6 m (63 ) Wt 103 kg (226 lb 3.1 oz) SpO2 99% BMI 40.07 kg/m Smoking Status Former BSA 2.04 m General: comfortable appearing patient in no acute distress HEENT: The ears and nose are unremarkable oropharynx is free from thrush or exudate, EYES: Sclera are anicteric and the conjunctiva are clear. The pupils are equally round The gaze is conjugate. NECK: Supple, veins appear flat, trachea is midline No lymphadenopathy or thyromegaly. LUNGS: Clear anterior/laterally. No audible wheeze. Excursion is symmetric. HEART: Rhythm is regular, no JVD, No murmur, rubs or gallop. ABD: Soft, non distended, BS present. No jovanni organomegaly. Extr: Trace if any edema, no clubbing, or cyanosis. Neuro Psychiatric: Alert and oriented, cooperative. Mood and Affect are appropriate. Neuro: Moving lower & Upper extremities in a symmetric fashion, Sensation is preserved in all extremities in an equally symmetric fashion. Visible cranial nerves are grossly normal. Skin: Free from rash or lesion unless otherwise noted. Exceptions to above or other notable findings are listed in the history of present illness. Laboratory and Additional Data Reviewed: Lab Results Component Value Date WBC 11.5 (H) 03/20/2023 HGB 12.2 03/20/2023 HCT 38.9 03/20/2023 MCV 89.8 03/20/2023 PLT 270 03/20/2023 Lab Results Component Value Date GLUCOSE 89 03/20/2023 CALCIUM 9.0 03/20/2023 NA 138 03/20/2023 K 4.9 03/20/2023 CO2 23 03/20/2023 CL 104 03/20/2023 BUN 31 (H) 03/20/2023 CREATININE 1.03 03/20/2023 Cultures: Available culture data has been reviewed, pertinent features have been summarized in the HPI Radiology: Available radiology results have been reviewed, pertinent features have been summarized in the HPI With regard to infection the pertinent problems include: All of these issues impact upon the diagnosis and management of infection, including antimicrobial selection. I have reviewed the available information in the medical record for this admission, I have reviewedall available microbiologic data in the electronic medical record from this and any previous admissions, For all of the above reasons my consultation has involved medical decision making of a moderate to high level of complexity. Aryan Bryan MD * Jessica Briseno RN - 03/20/2023 11:04 AM EDTAssociated Order(s): IP CONSULT TO IV TEAM PICC Line Insertion Procedure Note Procedure: Insertion of 4 FR SL Power and PICC into right arm per hospital protocol Indications: Jaw Skinner IV therapy, Home IV therapy Insertion: Bedside procedure time-out performed. Assessment of patient allergies completed and insertion area prepped using chlorhexidine gluconate solution. Maximum sterile technique was used including antiseptics, cap, gloves, gown, hand hygiene, mask and sheet. 0.2mg of intradermal lidocaine 1% used once for local anesthetic after assessing allergies. Catheter inserted by Jessica Briseno, member of PICC team, using ultrasound machine guidance for real-time imaging of vascular needle entry into basilic vein. Image of vein retained and placed in patient chart. Total catheter length 42 cm, with 0 cm external. Mid upper arm circumference measured 10cm proximal to the antecubital space is 36.5 cm. Cat heter was flushed with 20 cc NS and PICC positive blood return in each lumen. Patient did tolerate procedure well. PICC dressed using Chlorhexadine Impregnated semi-permeable tegaderm with stat lock.Dressing clean, dry, intact, occlusive. Unexpected events: none Number of Attempts: 1 Verified using ultrasound V:C ratio 4% PICC Brochure given to patient with teaching instruction including infection prevention, CLABSI, and PICC procedural information. [employer] Lot #: [id number] * Jessica Briseno RN - 03/20/2023 10:[address] Ortega, patient's section forest fire warden, has okayed patient for a PICC line. * Fredis Squires MD - 03/19/2023 7:53 AM EDT Chief complaint: [facility] - PREOPERATIVE MEDICAL RISK STRATIFICATION Patient Name : Castillo Graham Patient : 1955 Patient Admission Diagnosis : Left knee infection Referring Physician : Dr. Anusha Barber Provider Name : Fredis Squires MD Date Of PAT Appointment : 03/19/23 Type of Surgery Planned : Left Knee I&D with Polychange Date of Surgery Planned : 03/19/23 IMPRESSION AND PLAN : Preoperative medical risk stratification indicates patient is scheduled for surgery with elevated but acceptable risk. This patient has a known history of right-sided congestive heart failure and mild pulmonary hypertension and mild coronary artery disease. However, they have had previous cardiac testing and a cardiac clearance provided by Dr. Campos. A copy of the report was reviewed today and will be included in the paperwork. The patient denies any recent change in her cardiac status. They reportedly haveonly mild left ventricular dysfunction. 02/24/17 Echo-Mildly reduced LV systolic function 02/24/17 Lexiscan BRAND RECORDER-mildly diminished LV systolic function with an EF of 48% 03/05/17-Non obstructive 3 vessel CAD This patient has a known history of Deep Vein Thrombosis ( DVT ) ( Z 86.718 ) in the past. They will require multi-modality treatments or interventions to prevent a recurrence. This should include education on venous return exercises which have been provided by myself and will be emphasized with each follow-up interaction. In addition, aggressive goals for early ambulation and timely physical therapy for mobility and independence are recommended to help prevent a DVT. I recommend providing pharmacologic and non-pharmacologic prophylaxis per the ACCP Guidelines. This would include Lovenox, Arixtra, a New Oral Anticoagulant ( NOAC ) or a clinically proven equivalent. Ultimately, the final decision regarding anticoagulation for DVT prophylaxis / [facility]. Hypertension ( I 10 ) Chronic pre-existing condition present on admission. Currently being managed with standard anti-hypertensive medications. It should be noted that BRI Inhibitors and ARBlockers and Diuretics are not normally given the morning of surgery due to the risks for perioperative hypotension. This patient's blood pressure will need to be monitored closely throughout their hospitalization since potential perioperative issues such as dehydration, pain level, and the use of anestheticsor pain medications can cause BP fluctuations. Additional BP control can be provided with the addition of PO or PRN Clonidine. BP Readings from Last 3 Encounters: 03/19/23 129/61 10/06/22 134/75 Obstructive Sleep Apnea ( JEREMY ) ( G 47.33 ) Chronic pre-existing condition present on admission. This patient DOES NOT USE either CPAP or BiPAP at home. JEREMY increases the risks for postoperative hypoxia and hypoventilation. This patient should be watched on continuous pulse oximetry and a sleep apnea protocol throughout their hospitalization. They will require close monitoring of respiratory status with frequent vitals and continuous pulse oximetry, especially if any sedatives or narcotic medications are given. Gastroesophageal Reflux / GERD ( K 21.9 ) Chronic pre-existing condition present on admission. Currently stable on a Proton Pump Inhibitor ( PPI ) for treatment. GERD can be exacerbated by surgery oranesthesia due to increased stress, delayed gastric emptying, and supine positioning. Plan to continue prescribed PPI +/- antihistamine before and after surgery for reduction of gastric acidity. Congestive Heart Failure; Chronic Right-Sided CHF with mild LV Dysfunction and Mild Pulmonary HTN -on Diuretics - Currently stable or compensated. Plan to watch sats and lung exam closely while in hospital - Continue Telemetry. Plan to continue diuretics and cardiac medications where applicable. Chronic Peripheral Edema ( R 60.9 ) - Chronic pre-existing condition present on admission - increased risk of Deep Vein Thrombosis; prophylaxis per surgery - plan to continue Diuretics if applicable. Asthma (J 45.909 ) Chronic pre-existing condition present on admission. This patient denies any current symptoms or recent exacerbation. They will be at an increased risk of pulmonary complications related to surgery including bronchitis and pneumonia. I recommend patient continue their prescribed b ronchodilators without interruption. This would include the morning of surgery in order to prevent bronchospasm or any hypoventilation during surgery, even if they are stable. I would also recommend close monitoring of lung function and frequent pulmonary auscultation following surgery to watch forany wheezing. Nebulized bronchodilators should be administered if necessary. Supplemental oxygen should be used as necessary to avoid hypoxia. Would recommend caution with the addition of any sedatives mediations or narcotics which can decrease respiratory drive and contribute to hypoventilation and hypoxia. This patient should also be monitored on continuous pulse oximetry ATC until confirmed sta ble. Early ambulation and mobility and incentive spirometry have also been shown to decrease pulmonary complications related to surgery, especially in patients with Asthma. These interventions shouldbe encouraged as soon as possible following surgery. Coronary Artery Disease ( I 25.10 ) LISTED MILD FROM CATH IN 2017 - Chronic pre-existing diagnosis for this patient based on review of previous records. This represents a high risk diagnosis and places the patient at a higher risk of perioperative cardiac issues including ischemia or arrhythmias. This is considered a chronic illness that poses a threat to life or bodily function as it relates to perioperative care. Standard recommendations include watching patient on Telemetry during hospitalization and continuing all cardiac medications as prescribed, especially if they are related to preventing cardiac ischemia.based on previous Cardiac Catheterization results. Left Bundle Branch Block (LBBB) noted on EKG. Patient denies any recent or associated cardiac symptoms and this would not represent an overt contraindication to surgery. Anemia ( D 64.9 ) - Mild to moderate. Patient currently without indications for blood transfusion but will require continued to monitoring in hospital with Pulse Oximetry, Supplemental Oxygen to keepSats >= 90%, and Monitoring of Vitals including HR and BP closely. Results from last 7 days Lab Units 03/19/23 1145 HEMOGLOBIN g/dL 12.9 HEMATOCRIT % 40.6 HGB PENDING Neuropathy ( G 62.9 ). Chronic pre-existing condition present on admission. Peripheral per records.Plan to continue previously prescribed medications for treatment and watch for recurrent or worsening symptoms. Pre-Diabetes noted ( R 73.09) - Chronic pre-existing condition present prior to admission. Plan to continue or encourage dietary modifications. Glucose POCT Date Value Ref Range Status 10/06/2022 93 70 - 99 mg/dL Final 10/05/2022 133 (H) 70 - 99 mg/dL Final 10/05/2022 101 (H) 70 - 99 mg/dL Final 10/05/2022 141 (H) 70 - 99 mg/dL Final 10/04/2022 125 (H) 70 - 99 mg/dL Final Glucose Date Value Ref Range Status 03/19/2023 97 70 - 99 mg/dL Final Morbid Obesity ( E 66.01 ) BMI >= 40. At least in part related to excess calorie intake. Dietarydiscretion is advised. It has been recommended they follow up with their PCP regarding weight loss intervention. Obesity increases the risks for postoperative hypoxia and hypoventilation. This patient will require close monitoring of respiratory status with frequent vitals and continuous pulse oxime try, especially if any sedatives or narcotic medications are given. Obesity also represents an additional risk factor for Deep Vein Thrombosis ( DVT ). They will require multi-modality treatments or interventions to prevent a DVT. This should include education on venous return exercises. In addition, aggressive goals for early ambulation and timely physical therapy for mobility and independence are recommended to help prevent a DVT. Anticoagulation for DVT prophylaxis / prevention will be perthe discretion of the primary surgical service per protocol. Fibromyalgia ( M 79.7 ) noted; Chronic pre-existing condition present on admission - plan to resumePhysical Therapy and any prescribed medications for FM postoperatively. These medications are not ultimately necessary to give the morning of surgery. Chronic Kidney Disease ( N 18.9 ) Known previous diagnosis prior to admission. This represents a high risk diagnosis and patient will be at an increased risk of renal insufficiency or acute kidney injury ( KARLOS ) related to surgery and recovery. Recommendations include providing adequate hydration, urine output, and a stable BP throughout the perioperative time period. This may require monitoring such as a chance catheter. I will be assisting in these interventions as indicated. Avoidance of any additional nephrotoxins including LARA II inhibitors such as Mobic ( Meloxicam ) and Celebrex ( Celecoxib ) is also advised. BRI I and ARB's should be held postoperatively until kidney function, urine output, and BP are confirmed stable. Stage 1: Normal GFR with persistent albuminemia with GFR >90 Creatinine Date Value Ref Range Status 03/19/2023 1.10 0.60 - 1.30 mg/dL Final 10/04/2022 0.89 0.60 - 1.30 mg/dL Final 10/03/2022 0.97 0.60 - 1.30 mg/dL Final 09/19/2022 1.04 0.60 - 1.30 mg/dL Final Gout ( M 10.9 ); chronic pre-existing condition present on admission but without current exacerbation noted. Plan to stop all NSAIDS prior to surgical procedure due to anticoagulant effects. Tylenol would be acceptable for alternative pain control. Medications for treatment of Gout other than NSAIDS can be continued but are not ultimately necessary the morning of surgery. Plan to continue to watch for symptoms. HISTORY OF PRESENT ILLNESS : Vanessa Graham, 67 y.o. female presenting for preoperative medical risk stratification at the request of Dr. Barber for Left Knee I&D with Polychange. This patient originally underwent a left total knee replacement approximately 6 years ago and had a revision procedure on 10/02/2022. In the [facility] since his previous surgery he states she has had continued pain in September 2022. They have had some problems with healing and some evidence of the left knee infection. They have been placed on the OR schedule for a left knee incision and drainage with possible poly change on 03/19/2023. Internal Medicine has been consulted for preoperative medical risks stratification as well as advice regarding this patient's chronic medical conditions. Please see below regarding the status of active medical conditions and assessment and plan for preoperative medical risk stratification. MEDICAL ILLNESSES : HTN Orthostatic Hypotension-midodrine discontinued Right- sided heart failure-on diuretics-mildly reduced LV systolic function Mild Pulmonary HTN CAD - nonobstructive based on CATH 2017 Cardiac clearance from 09/25/22; Dr. Campos CQM-[id number] with CPAP CKD Stage 4-baseline creat 1.04 Nephrology clearance from 09/30/22; Dr Medina Secondary renal hyperparathyroidism GERD Chronic anemia Prediabetes ; patient denies overt diabetes Asthma Neuropathy Fibromyalgia Morbid obesity-BMI 40 LBBB Thrombophilia-has been on blood thinner previously - h/o DVT/PE Lower extremity edema-on bumetamide Gout PAST MEDICAL HISTORY : SURGERIES : Left TK revision 10/02/22 Right TKA 3 years ago Left TKA 6 years ago Catheterization-showed no coronary artery disease Thyroid biopsy Appy Colonoscopy Foot surgery Gastric bypass- T&A MEDICATIONS Reviewed and Confirmed : Current Outpatient Medications Medication Instructions albuterol HFA (PROAIR HFA ; PROVENTIL HFA ; VENTOLIN HFA) 90 mcg/actuation inhaler 2 puffs, inhalation, Every 6 hours PRN alendronate (FOSAMAX) 70 mg, oral, Every 7 days, Mondays allopurinoL (ZYLOPRIM) 200 mg, oral, Daily budesonide-formoteroL (SYMBICORT) 160-4.5 mcg/actuation inhaler 2 puffs, inhalation, 2 times daily,Rinse mouth with water after use to reduce aftertaste and incidence of candidiasis. Do not swallow. bumetanide (BUMEX) 1 mg, oral, 2 times daily docusate sodium (COLACE) 100 mg, oral, 2 times daily PRN fluconazole (DIFLUCAN) 100 mg, oral, Daily PRN fluticasone propionate (FLONASE) 50 mcg/actuation nasal spray 1-2 sprays, Each Nostril, Daily PRN, Shake gently. Before first use, prime pump. After use, clean tip and replace cap. gabapentin (NEURONTIN) 300 mg, oral, 3 times daily magnesium oxide 500 mg, oral, Nightly Mounjaro 7.5 mg, subcutaneous, Weekly, Mondays ondansetron (ZOFRAN) 4 mg tablet oral, Every 8 hours PRN oxyCODONE (OXY-IR) 5-10 mg, oral, Daily PRN pantoprazole (PROTONIX) 40 mg, oral, 2 times daily, Do not crush, chew, or split. no122/iron/folic acid ( MULTI ORAL) 1 tablet, oral, Weekly rivaroxaban (XARELTO) 10 mg, oral, Daily, Take with food. tiZANidine (ZANAFLEX) 12-16 mg, oral, Nightly topiramate (TOPAMAX) 50 mg, oral, Daily at 4 pm Current Facility-Administered Medications: ceFAZolin (ANCEF) 2 gram/20 mL IV syringe 2 g, 2 g, intravenous, Once, Anusha Barber MD dexamethasone (DECADRON) injection 10 mg, 10 mg, intravenous, Once, Anusha Barber MD gentamicin (GARAMYCIN) 370 mg in sodium chloride 0.9 % 100 mL IVPB, 5 mg/kg (Adjusted), intravenous, Once, Anusha Barber MD tranexamic acid (CYKLOKAPRON) injection 1,000 mg, 1,000 mg, intravenous, Once, Anusha Braber MD Percocet 1 tab taken today No longer takes midodrine Allergies : Adhesive Tape-silicones - Wound High Allergy 10/01/2022 Aspirin - Hives, Shortness of breath High Allergy 10/01/2022 Latex - Wound High Allergy 10/01/2022 Penicillins - Hives, Shortness of breath High Allergy 10/01/2022 Sulfa (Sulfonamide Antibiotics) - Hives, Shortness of breath High Allergy 10/01/2022 Bactrim [Sulfamethoxazole-trimethoprim] - Unknown Medium Unspecified 10/01/2022 Contact Metal Agent - Itching Medium Allergy 10/01/2022 Tramadol - Unknown Low Unspecified 10/01/2022 Adverse Reactions/Drug Intolerances Ibuprofen - Other Medium Intolerance 10/01/2022 - Cant take due to kidney failure Band-aids - blisters Metal Allergies : Gold and Nickel-itching TRANSFUSION HISTORY Positive transfusion without adverse reaction No Previous Transfusion Related Reactions No Rastafari Reasons To Avoid Blood Transfusions ANESTHESIA HISTORY No Previous Adverse Reactions to Anesthesia No Personal History of a Bleeding Disorders or Bleeding Episodes Family History : Pt adopted, history unknown Social History : Tobacco Use: Denies Alcohol Use: Denies Substance Use: Denies REVIEW OF SYSTEMS Constitutional: Denies fever Head/Neck: Denies headache Eye: Denies eye pain Ear/Nose/Mouth/Throat: Denies sore throat Cardiovascular: Denies chest pain or pressure Respiratory: Denies shortness of breath or dyspnea Gastrointestinal: Denies abdominal pain or cramping Neurologic : Denies any new numbness. Denies any new weakness Genitourinary: Denies urinary retention or incomplete voiding Skin: Denies rash VITALS : BP 129/61 HR 66 RR 16 O2Sat 100% Temp 98.1 Ht 5'3 Wt 226 lbs BMI 40 Visit Vitals BP 129/61 Pulse 68 Temp 36.7 C (98.1 F) Resp 14 Ht 1.6 m (63 ) Wt 103 kg (226 lb 3.1 oz) SpO2 98% BMI 40.07 kg/m Smoking Status Former BSA 2.04 m PHYSICAL EXAM : VITALS Visit Vitals BP 129/61 Pulse 68 Temp 36.7 C (98.1 F) Resp 14 Ht 1.6 m (63 ) Wt 103 kg (226 lb 3.1 oz) SpO2 98% BMI 40.07 kg/m Smoking Status Former BSA 2.04 m General - No acute distress; Alert and conversational Skin - Normal skin turgor and texture; No rashes or ulcerations noted Eyes - PERRLA; Anicteric Sclerae ENMT - Hearing Intact; Oropharynx clear with moist mucosa Cardiology - S1 S2 with regular rhythm. No tachycardia noted; No peripheral edema noted Respiratory - Clear to auscultate bilaterally; No accessory respiratory muscle use noted Abdominal - Non-tender to palpation; Soft without obvious mass noted Musculoskeletal - No clubbing of digits noted; No cyanosis of digits noted Surgical site exam deferred to the surgeon who will be seeing the patient in preop Psychiatric - Appropriate affect, Alert and oriented to person, place, and situation RESULTS : EKG INDEPENDENTLY INTERPRETED : EKG 09/19/22 shows sinus rhythm at 67 bpm. There is evidence of a left bundle branch block LABS ORDERED : CBC and BMP ordered ADDITIONAL RELEVANT RESULTS AND/OR RECORDS REVIEWED : 02/24/17 Echo-Mildly reduced LV systolic function 02/24/17 Lexiscan BRAND RECORDER-mildly diminished LV systolic function with an EF of 48% 03/05/17-Non obstructive 3 vessel CAD LABS CBC Lab Results Component Value Date WBC 12.4 (H) 03/19/2023 HGB 12.9 03/19/2023 HCT 40.6 03/19/2023 MCV 87.7 03/19/2023 PLT 268 03/19/2023 Results from last 7 days Lab Units 03/19/23 1145 WBC AUTO K/mcL 12.4* HEMOGLOBIN g/dL 12.9 HEMATOCRIT % 40.6 PLATELETS K/mcL 268 LYMPHS PCT AUTO % 10.3* MONO PCT AUTO % 8.1 EOS PCT AUTO % 0.6 CMP Lab Results Component Value Date NA 140 03/19/2023 K 4.4 03/19/2023 CL 104 03/19/2023 CO2 27 03/19/2023 BUN 36 (H) 03/19/2023 CREATININE 1.10 03/19/2023 GLUCOSE 97 03/19/2023 documented in this encounterClarks Summit State [id number] Hospital course Narrative* Debbie Kapadia RN - 03/20/2023 2:15 PM EDT -use over the counter stool softeners to prevent constipation Prescription OXYCODONE * Meño Candelario RN - 03/20/2023 11:05 AM EDT PICC Total length 42cm, External length 0cm Flush port(s) with 10ml NS before and after medication administration. Flush port(s) with 10ml NS every 8 hours when not in use. Flush port(s) with 20ml NS after every lab draw. Change PICC dressing every seven days and as needed. [facility] -PT/OT Eval for Gait training, ADL'S, bed mobility, transfers, rom and strengthening, venous returnexercises and modalities prn. -WBAT LLE -FWW for gait assist Please follow surgeon's discharge instructions and prescription directions. Surgeon' discharge instructions are in patient's folder- FOLLOW SURGEON INSTRUCTION SHEETS Contact Surgeon's office with any questions/concerns [phone] -Plasma Flow SCD'S Compression leg pumps on Bilateral Legs for 20 hours per day x 2 weeks for additional DVT prevention- SEE SURGEONS INSTRUCTION SHEETS FOR DIRECTIONS -use over the counter stool softeners to prevent constipation - Prevena wound vac - Patient to call office and schedule an appointment to have prevena removed on03/27/2023- [phone]- per conversation with Dr. Santos- if patient is unable to make this appointment due to transportation issues- patient to follow instructions below- patient is aware that it isthe preference for prevena to be removed in office -When Prevena Wound Vac lifespan alarms, please remove the wound vac dressing. Take a photo of the incision and email : [email or web address]. Then apply Optifoam dressing that is in your discharge folder. -Call for a 2-3 week follow up appointment and any questions or concerns. Verify Office location when scheduling. [phone] * Portia Sue RN - 03/18/2023 2:28 PM EDT Pre-Surgery Instructions: Medication Instructions albuterol HFA (PROAIR HFA ; PROVENTIL HFA ; VENTOLIN HFA) 90 mcg/actuation inhaler Other (see Additional Instructions)instructed to bring dos alendronate (FOSAMAX) 70 mg tablet Other (see Additional Instructions)takes on Thursday allopurinoL (ZYLOPRIM) 100 mg tablet Other (see Additional Instructions) instructed to hold dos budesonide-formoteroL (SYMBICORT) 160-4.5 mcg/actuation inhaler Other (see Additional Instructions)instructed to use dos bumetanide (BUMEX) 1 mg tablet Other (see Additional Instructions) instructed to hold dos docusate sodium (COLACE) 100 mg capsule Other (see Additional Instructions) instructed to hold dos fluconazole (DIFLUCAN) 100 mg tablet Other (see Additional Instructions) uses prn fluticasone propionate (FLONASE) 50 mcg/actuation nasal spray Other (see Additional Instructions) instructed to use dos gabapentin (NEURONTIN) 300 mg capsule Take morning of surgery with sip of water, no other fluids magnesium oxide 500 mg tablet Continue taking until night before surgery ondansetron (ZOFRAN) 4 mg tablet Continue taking until night before surgery oxyCODONE (OXY-IR) 5 mg immediate release capsule Take morning of surgery with sip of water, no other fluids if needed pantoprazole (PROTONIX) 40 mg EC tablet Take morning of surgery with sip of water, no other fluids no122/iron/folic acid ( MULTI ORAL) Other (see Additional Instructions)instructed to hold dos rivaroxaban (XARELTO) 10 mg tablet Other (see Additional Instructions)no longer taking tirzepatide (Mounjaro) 7.5 mg/0.5 mL pen injector Other (see Additional Instructions)takes on Thursday- last dose 03/16 tiZANidine (ZANAFLEX) 4 mg tablet Continue taking until night before surgery topiramate (TOPAMAX) 25 mg tablet Take morning of surgery with sip of water, no other fluids Additional Instructions: Medication instructions given Instructions to prepare for surgery: Increase water intake day PRIOR to surgery. Eat light meals or follow surgeon specific food instructions day PRIOR to surgery. At Midnight, nothing is allowed in your mouth. NO food, water, gum, candy, coffee, mints, tobacco, NOTHING AFTER MIDNIGHT. When you wake up, brush your teeth and use mouthwash. Don't swallow. Take small sip of water with meds that are to be taken DOS. Shower night prior and morning of surgery with antibiotic cleanser OR Dial antibacterial soap (as designated by surgeon). No lotions, creams, powders on your skin. You may wear deodorant (unless surgery is on your shoulder or breast(s)). No shaving surgical site (within 48 hours of surgery). Remove all jewelry, piercings and leave that at home. Leave valuable at home. Wear loose fitting clothes. Bring photo ID, medical insurance card, and copay as needed when you check in for surgery. In addition, bring any of the following: CPAP, living will/ medical POA, glasses, case, hearing aid container, shoulder sling, back brace, walker, cervical collar. Bring your COVID vaccine card, if applicable. Leave walker &/or cane (unless needed prior to surgery) and overnight bag in the car until after your procedure when you are assigned a room. Only 1 designated adult is allowed to go back into Pre-Op area with you. Surgical times are subject to change up until 5:30pm the evening prior to your surgery. Check in at retail center receptionist desk [id number] [place] [address]. If Outpatient, these additional instructions apply: An adult must stay with you the whole time you are here and drive you home. An adult must stay withyou at home for 24 hours due to Anesthesia. If you have JEREMY, you are required to stay 3 hours after your surgery before we can discharge you. documented in this encounterClarks Summit State [id number] Hospital Discharge instructions* Discharge Instructions* Aryan Bryan MD - 03/20/2023 11:06 AM EDT [facility] Nursing Instructions: 1)Picc Care 2)Qmon CBC,SR,Creat,CRP, fax to Dr. Bryan [phone] 3)IV ATB for 42 days 4)Call Dr. Bryan for F/C/S, N/V/D, rash, 5)F/U with Dr Bryan in 4-5 weeks 6) Call if released before completing IV therapy. PICC (Peripherally Inserted Central Catheter) A peripherally inserted central catheter (PICC) is a long, flexible tube, about the size of a pieceof cooked spaghetti. The PICC is placed into a vein in your upper arm and advanced into a larger vein that leads to your heart. A PICC is more secure than a regular IV that is placed in the top of your hand or lower arm. A PICC can stay in place for weeks to months, rather than days. Why do I need a PICC? People have PICCs placed for many reasons: Poor veins Medications that are irritating to the veins IV (intravenous) nutrition/TPN (total parenteral nutrition) Blood products Chemotherapy custodial antibiotics Blood draws Will a PICC affect my daily activities? Many people with a PICC can perform their normal daily activities. There are some things you shouldNOT do. Avoid swimming, lifting weights, and playing contact sports. Do not do activities that involve repetitive motion with the arm, just as vacuuming and swinging golf clubs or baseball bats. Avoid any activities that may get the PICC dressing wet. You may shower by covering your upper arm and PICC with plastic wrap. Examples include Saran Wrap or Press 'N Seal. When taking off the plastic wrap, always check your dressing. If you see water or soap under the dressing, call your doctor or home health nurse right away. Keeping the PICC insertionsite dry and clean at all times help prevent infection. A home health nurse can come change this dressing for you. Care of your PICC The PICC dressing will need to be changed: Once every 7 days for as long as it is in place. If the dressing becomes loose or soiled. Care of your PICC may be done at an Outpatient IV Department. It may also be done at home by a homehealth nurse. The PICC will need to be flushed as instructed by your home health nurse. This helps prevent the line from becoming clotted. If the PICC will not flush or is hard to flush, further treatment is necessary. Call your doctor or your home health nurse. When using your PICC, never use any syringe smaller than 10mL. Using a smaller syringe can create more pressure inside the PICC and can damage it. Preventing Infection Since a PICC goes directly into your bloodstream, it is very important to prevent infections. Always scrub the cap on the end of your catheter for 15 seconds with an alcohol swab before using. Always keep a cap on your catheter. Always make sure the cap and connections are tight. Always make sure you dressing is dry and covers the insertion site. Never try to reinsert the catheter into your arm if the catheter has been partially pulled out. If your catheter has clamps on it, always make sure they are clamped when not in use. Refer to the booklet that you were given for more information. Call your doctor or home health nurse if you have any of the following: Fever above 101 F (38.3 C) or chills Redness, swelling, drainage, or increased tenderness at the insertion site or in the upper arm Leaking around the catheter Bleeding around the catheter lasting longer that 24 hours after the catheter was placed Any hole or break in the catheter- if this occurs, fold the catheter back on itself and tape it to your arm. Call your home health nurse or doctor RIGHT AWAY The catheter is hard to flush or will not flush at all The cathter gets partially or completely pulled out If you have questions or concerns, talk to your home health nurse or doctor. * Attachments The following attachments cannot be sent through Care Everywhere. * DVT (Deep Vein Thrombosis): Prevention: General Info (Italian) * Incentive Spirometer: General Info (Italian) * Fall Prevention (Italian) * Opioids: General Info (Italian) * Constipation (Italian) * PICC (Peripherally Inserted Central Catheter) (Italian) * Antibiotics: General Info (Italian) * rivaroxaban (Italian) documented in this encounterClarks Summit State [id number] Consult note* Jessica Briseno RN - 03/20/2023 11:04 AM EDTAssociated Order(s): IP CONSULT TO IV TEAM PICC Line Insertion Procedure Note Procedure: Insertion of 4 FR SL Power and PICC into right arm per hospital protocol Indications: Senior Living IV therapy, Home IV therapy Insertion: Bedside procedure time-out performed. Assessment of patient allergies completed and insertion area prepped using chlorhexidine gluconate solution. Maximum sterile technique was used including antiseptics, cap, gloves, gown, hand hygiene, mask and sheet. 0.2mg of intradermal lidocaine 1% used once for local anesthetic after assessing allergies. Catheter inserted by Jessica Briseno, member of PICC team, using ultrasound machine guidance for real-time imaging of vascular needle entry into basilic vein. Image of vein retained and placed in patient chart. Total catheter length 42 cm, with 0 cm external. Mid upper arm circumference measured 10cm proximal to the antecubital space is 36.5 cm. Cat heter was flushed with 20 cc NS and PICC positive blood return in each lumen. Patient did tolerate procedure well. PICC dressed using Chlorhexadine Impregnated semi-permeable tegaderm with stat lock.Dressing clean, dry, intact, occlusive. Unexpected events: none Number of Attempts: 1 Verified using ultrasound V:C ratio 4% PICC Brochure given to patient with teaching instruction including infection prevention, CLABSI, and PICC procedural information. [employer] Lot #: [id number] [facility] [id number] Consult note* Jessica Briseno RN - 03/20/2023 10:[address] Ortega, patient's section forest fire warden, has okayed patient for a PICC line. Renate [id number] History and physical note* Anusha Barber MD - 03/19/2023 11:54 AM EDT History and Physical Update ( H&P completed within the previous thirty days ) I personally reviewed the History and Physical, interviewed and examined the patient prior to surgery. No changes have occurred in the patient's condition since the History and Physical was completed. [employer] Work Phone: [phone] 612-197606-01-2023 History and physical note* Anusha Barber MD - 03/19/2023 11:54 AM EDT History and Physical Update ( H&P completed within the previous thirty days ) I personally reviewed the History and Physical, interviewed and examined the patient prior to surgery. No changes have occurred in the patient's condition since the History and Physical was completed. documented in this encounterClarks Summit State [id number] Procedure note* Anusha Barber MD - 03/19/2023 10:22 AM EDT Operative Note Patient Name: CASTILLO GRAHAM Date of Service: March 19, 2023 Date of : 1955 Clinician: ANUSHA BARBER MD Facility: [facility] Location: [facility] PREOPERATIVE DIAGNOSIS: Left knee periprosthetic joint infection. POSTOPERATIVE DIAGNOSIS: Left knee periprosthetic joint infection. PROCEDURES PERFORMED: 1. Left knee polyethylene exchange. 2. Left knee irrigation and debridement. SURGEON: Anusha Barber MD [employer] BACK TENDER: Kaur Pierre PA-C ANESTHESIA: General endotracheal anesthesia. ANTIBIOTICS: Gentamicin. BLOOD LOSS: 50 mL. TOURNIQUET TIME: 70 minutes. IMPLANTS: Persona posterior stabilized 18 mm height for tibia E-F/femur 6-9. SPECIMENS: Fluid for cell count: Pending, 5 deep tissue cultures. COMPLICATIONS: None. INDICATIONS: The patient is a 67-year-old female who is about 6 months out from a left knee polyethylene exchange for instability. She was doing fine until about a week ago when she had a fall, a day or two laternoticed increasing pain in the knee, difficulty bearing weight. She presented to the office where an aspiration was performed, demonstrated greater than 60,000 white blood cells with a 90% PMNs. Given that this is highly suggestive of a periprosthetic joint infection, wished to proceed forth with surgery. Given the timing of abrupt onset, felt like we could treat this as an acute infection with polyethylene exchange and irrigation and debridement. DESCRIPTION OF PROCEDURE: The patient was met in the preoperative holding area. Site verification and informed consent were verified. After all questions were answered and the operative site was signed, the patient was brought back to the operative suite where she underwent general endotracheal anesthesia. She was positioned supine on the operating table. Tourniquet was placed in left thigh. Left lower extremity was prepped and draped in the usual sterile fashion. Prior to beginning the procedure, surgical pause was performed verifying correct patient, laterality, and procedure and the patient received antibiotics. The limb was exsanguinated with an Esmarch and tourniquet was inflated to 300 mmHg. Utilized her previous incision and made a medial parapatellar arthrotomy. Jovanni purulence was encountered. This wassent for cell count, which was still pending. A medial and proximal soft tissue release was made off the tibia. A subtotal synovectomy was then performed on the medial and lateral gutters. The synovium did not appeared adhesed and scarred and it appeared to be more of an acute process as the timingwould suggest. I then completed the synovectomy. The polyethylene was removed after trialing. She had slight instability in extension and flexion, which I felt she got increase to 2 more millimeters of thickness. The polyethylene was removed and the posterior aspect of the knee was then debrided. Once the synovectomy and debridement were fully completed, I then irrigated with normal saline of 3 liters, followed by 1 liter of dilute Betadine, a liter of normal saline, a liter of acetic acid, a liter of normal saline, a liter of Bactisure solution, and then another liter of normal saline. Surgical team changed gloves. 18 polyethylene insert was then inserted. The tourniquet was then let down.Hemostasis was obtained. A 10-Belarusian drain was placed in the knee. The arthrotomy was then closed with a combination of #1 Vicryl and #1 Stratafix suture. The skin was closed with a 2-0 Stratafix and almita. A Prevena negative pressure wound VAC was applied. The patient was awoken from anesthesia without complications and was transferred to recovery room in stable condition. POSTOPERATIVE PLAN: The patient will be weightbearing as tolerated. We will admit her to the hospital and we will consult Dr. Bryan of infectious disease. We will plan for her getting a PICC line tomorrow. Disposition will depend on how she is doing with therapy and I wonder if she wants to do home health or go to a alf facility. Kaur Pierre PA-C, assisted with proper preoperative positioning, preoperative templating, determining availability of proper implants, prepping and draping of patient, manipulation placement of instruments, protection of ligaments and vital soft tissue structures, assistance in maintaining hemostasis and assistance with closure of the wound. His skills and knowledge of the steps of the operation and the desired outcome of each surgical step was crucial, allowing for efficient choreography ofsurgical procedure, and closure of the wound which lead to reduced surgical time, less blood loss, and less risk of complications for the patient. ANUSHA BARBER MD TT: 03/19/2023 15:47:00 [facility] [id number] Procedure note* Anusha Barber MD - 03/19/2023 10:22 AM EDT Operative Note Patient Name: CASTILLO GRAHAM Date of Service: March 19, 2023 Date of : 1955 Clinician: ANUSHA BARBER MD Facility: [facility] Location: [facility] PREOPERATIVE DIAGNOSIS: Left knee periprosthetic joint infection. POSTOPERATIVE DIAGNOSIS: Left knee periprosthetic joint infection. PROCEDURES PERFORMED: 1. Left knee polyethylene exchange. 2. Left knee irrigation and debridement. SURGEON: Anusha Barber MD [employer] BACK TENDER: Kaur Pierre PA-C ANESTHESIA: General endotracheal anesthesia. ANTIBIOTICS: Gentamicin. BLOOD LOSS: 50 mL. TOURNIQUET TIME: 70 minutes. IMPLANTS: Persona posterior stabilized 18 mm height for tibia E-F/femur 6-9. SPECIMENS: Fluid for cell count: Pending, 5 deep tissue cultures. COMPLICATIONS: None. INDICATIONS: The patient is a 67-year-old female who is about 6 months out from a left knee polyethylene exchange for instability. She was doing fine until about a week ago when she had a fall, a day or two laternoticed increasing pain in the knee, difficulty bearing weight. She presented to the office where an aspiration was performed, demonstrated greater than 60,000 white blood cells with a 90% PMNs. Given that this is highly suggestive of a periprosthetic joint infection, wished to proceed forth with surgery. Given the timing of abrupt onset, felt like we could treat this as an acute infection with polyethylene exchange and irrigation and debridement. DESCRIPTION OF PROCEDURE: The patient was met in the preoperative holding area. Site verification and informed consent were verified. After all questions were answered and the operative site was signed, the patient was brought back to the operative suite where she underwent general endotracheal anesthesia. She was positioned supine on the operating table. Tourniquet was placed in left thigh. Left lower extremity was prepped and draped in the usual sterile fashion. Prior to beginning the procedure, surgical pause was performed verifying correct patient, laterality, and procedure and the patient received antibiotics. The limb was exsanguinated with an Esmarch and tourniquet was inflated to 300 mmHg. Utilized her previous incision and made a medial parapatellar arthrotomy. Jovanni purulence was encountered. This wassent for cell count, which was still pending. A medial and proximal soft tissue release was made off the tibia. A subtotal synovectomy was then performed on the medial and lateral gutters. The synovium did not appeared adhesed and scarred and it appeared to be more of an acute process as the timingwould suggest. I then completed the synovectomy. The polyethylene was removed after trialing. She had slight instability in extension and flexion, which I felt she got increase to 2 more millimeters of thickness. The polyethylene was removed and the posterior aspect of the knee was then debrided. Once the synovectomy and debridement were fully completed, I then irrigated with normal saline of 3 liters, followed by 1 liter of dilute Betadine, a liter of normal saline, a liter of acetic acid, a liter of normal saline, a liter of Bactisure solution, and then another liter of normal saline. Surgical team changed gloves. 18 polyethylene insert was then inserted. The tourniquet was then let down.Hemostasis was obtained. A 10-Belarusian drain was placed in the knee. The arthrotomy was then closed with a combination of #1 Vicryl and #1 Stratafix suture. The skin was closed with a 2-0 Stratafix and almita. A Prevena negative pressure wound VAC was applied. The patient was awoken from anesthesia without complications and was transferred to recovery room in stable condition. POSTOPERATIVE PLAN: The patient will be weightbearing as tolerated. We will admit her to the hospital and we will consult Dr. Bryan of infectious disease. We will plan for her getting a PICC line tomorrow. Disposition will depend on how she is doing with therapy and I wonder if she wants to do home health or go to a alf facility. Kaur Pierre PA-C, assisted with proper preoperative positioning, preoperative templating, determining availability of proper implants, prepping and draping of patient, manipulation placement of instruments, protection of ligaments and vital soft tissue structures, assistance in maintaining hemostasis and assistance with closure of the wound. His skills and knowledge of the steps of the operation and the desired outcome of each surgical step was crucial, allowing for efficient choreography ofsurgical procedure, and closure of the wound which lead to reduced surgical time, less blood loss, and less risk of complications for the patient. ANUSHA BARBER MD TT: 03/19/2023 15:47:00 WILLOW/JUNI documented in this encounterClarks Summit State [id number] Consult note* Fredis Squires MD - 03/19/2023 7:53 AM EDT Chief complaint: [facility] - PREOPERATIVE MEDICAL RISK STRATIFICATION Patient Name : Castillo Graham Patient : 1955 Patient Admission Diagnosis : Left knee infection Referring Physician : Dr. Anusha Barber Provider Name : Fredis Squires MD Date Of PAT Appointment : 03/19/23 Type of Surgery Planned : Left Knee I&D with Polychange Date of Surgery Planned : 03/19/23 IMPRESSION AND PLAN : Preoperative medical risk stratification indicates patient is scheduled for surgery with elevated but acceptable risk. This patient has a known history of right-sided congestive heart failure and mild pulmonary hypertension and mild coronary artery disease. However, they have had previous cardiac testing and a cardiac clearance provided by Dr. Campos. A copy of the report was reviewed today and will be included in the paperwork. The patient denies any recent change in her cardiac status. They reportedly haveonly mild left ventricular dysfunction. 02/24/17 Echo-Mildly reduced LV systolic function 02/24/17 Lexiscan BRAND RECORDER-mildly diminished LV systolic function with an EF of 48% 03/05/17-Non obstructive 3 vessel CAD This patient has a known history of Deep Vein Thrombosis ( DVT ) ( Z 86.718 ) in the past. They will require multi-modality treatments or interventions to prevent a recurrence. This should include education on venous return exercises which have been provided by myself and will be emphasized with each follow-up interaction. In addition, aggressive goals for early ambulation and timely physical therapy for mobility and independence are recommended to help prevent a DVT. I recommend providing pharmacologic and non-pharmacologic prophylaxis per the ACCP Guidelines. This would include Lovenox, Arixtra, a New Oral Anticoagulant ( NOAC ) or a clinically proven equivalent. Ultimately, the final decision regarding anticoagulation for DVT prophylaxis / prevention [facility]. Hypertension ( I 10 ) Chronic pre-existing condition present on admission. Currently being managed with standard anti-hypertensive medications. It should be noted that BRI Inhibitors and ARBlockers and Diuretics are not normally given the morning of surgery due to the risks for perioperative hypotension. This patient's blood pressure will need to be monitored closely throughout their hospitalization since potential perioperative issues such as dehydration, pain level, and the use of anestheticsor pain medications can cause BP fluctuations. Additional BP control can be provided with the addition of PO or PRN Clonidine. BP Readings from Last 3 Encounters: 03/19/23 129/61 10/06/22 134/75 Obstructive Sleep Apnea ( JEREMY ) ( G 47.33 ) Chronic pre-existing condition present on admission. This patient DOES NOT USE either CPAP or BiPAP at home. JEREMY increases the risks for postoperative hypoxia and hypoventilation. This patient should be watched on continuous pulse oximetry and a sleep apnea protocol throughout their hospitalization. They will require close monitoring of respiratory status with frequent vitals and continuous pulse oximetry, especially if any sedatives or narcotic medications are given. Gastroesophageal Reflux / GERD ( K 21.9 ) Chronic pre-existing condition present on admission. Currently stable on a Proton Pump Inhibitor ( PPI ) for treatment. GERD can be exacerbated by surgery oranesthesia due to increased stress, delayed gastric emptying, and supine positioning. Plan to continue prescribed PPI +/- antihistamine before and after surgery for reduction of gastric acidity. Congestive Heart Failure; Chronic Right-Sided CHF with mild LV Dysfunction and Mild Pulmonary HTN -on Diuretics - Currently stable or compensated. Plan to watch sats and lung exam closely while in hospital - Continue Telemetry. Plan to continue diuretics and cardiac medications where applicable. Chronic Peripheral Edema ( R 60.9 ) - Chronic pre-existing condition present on admission - increased risk of Deep Vein Thrombosis; prophylaxis per surgery - plan to continue Diuretics if applicable. Asthma (J 45.909 ) Chronic pre-existing condition present on admission. This patient denies any current symptoms or recent exacerbation. They will be at an increased risk of pulmonary complications related to surgery including bronchitis and pneumonia. I recommend patient continue their prescribed b ronchodilators without interruption. This would include the morning of surgery in order to prevent bronchospasm or any hypoventilation during surgery, even if they are stable. I would also recommend close monitoring of lung function and frequent pulmonary auscultation following surgery to watch forany wheezing. Nebulized bronchodilators should be administered if necessary. Supplemental oxygen should be used as necessary to avoid hypoxia. Would recommend caution with the addition of any sedatives mediations or narcotics which can decrease respiratory drive and contribute to hypoventilation and hypoxia. This patient should also be monitored on continuous pulse oximetry ATC until confirmed sta ble. Early ambulation and mobility and incentive spirometry have also been shown to decrease pulmonary complications related to surgery, especially in patients with Asthma. These interventions shouldbe encouraged as soon as possible following surgery. Coronary Artery Disease ( I 25.10 ) LISTED MILD FROM CATH IN 2017 - Chronic pre-existing diagnosis for this patient based on review of previous records. This represents a high risk diagnosis and places the patient at a higher risk of perioperative cardiac issues including ischemia or arrhythmias. This is considered a chronic illness that poses a threat to life or bodily function as it relates to perioperative care. Standard recommendations include watching patient on Telemetry during hospitalization and continuing all cardiac medications as prescribed, especially if they are related to preventing cardiac ischemia.based on previous Cardiac Catheterization results. Left Bundle Branch Block (LBBB) noted on EKG. Patient denies any recent or associated cardiac symptoms and this would not represent an overt contraindication to surgery. Anemia ( D 64.9 ) - Mild to moderate. Patient currently without indications for blood transfusion but will require continued to monitoring in hospital with Pulse Oximetry, Supplemental Oxygen to keepSats >= 90%, and Monitoring of Vitals including HR and BP closely. Results from last 7 days Lab Units 03/19/23 1145 HEMOGLOBIN g/dL 12.9 HEMATOCRIT % 40.6 HGB PENDING Neuropathy ( G 62.9 ). Chronic pre-existing condition present on admission. Peripheral per records.Plan to continue previously prescribed medications for treatment and watch for recurrent or worsening symptoms. Pre-Diabetes noted ( R 73.09) - Chronic pre-existing condition present prior to admission. Plan to continue or encourage dietary modifications. Glucose POCT Date Value Ref Range Status 10/06/2022 93 70 - 99 mg/dL Final 10/05/2022 133 (H) 70 - 99 mg/dL Final 10/05/2022 101 (H) 70 - 99 mg/dL Final 10/05/2022 141 (H) 70 - 99 mg/dL Final 10/04/2022 125 (H) 70 - 99 mg/dL Final Glucose Date Value Ref Range Status 03/19/2023 97 70 - 99 mg/dL Final Morbid Obesity ( E 66.01 ) BMI >= 40. At least in part related to excess calorie intake. Dietarydiscretion is advised. It has been recommended they follow up with their PCP regarding weight loss intervention. Obesity increases the risks for postoperative hypoxia and hypoventilation. This patient will require close monitoring of respiratory status with frequent vitals and continuous pulse oxime try, especially if any sedatives or narcotic medications are given. Obesity also represents an additional risk factor for Deep Vein Thrombosis ( DVT ). They will require multi-modality treatments or interventions to prevent a DVT. This should include education on venous return exercises. In addition, aggressive goals for early ambulation and timely physical therapy for mobility and independence are recommended to help prevent a DVT. Anticoagulation for DVT prophylaxis / prevention will be perthe discretion of the primary surgical service per protocol. Fibromyalgia ( M 79.7 ) noted; Chronic pre-existing condition present on admission - plan to resumePhysical Therapy and any prescribed medications for FM postoperatively. These medications are not ultimately necessary to give the morning of surgery. Chronic Kidney Disease ( N 18.9 ) Known previous diagnosis prior to admission. This represents a high risk diagnosis and patient will be at an increased risk of renal insufficiency or acute kidney injury ( KARLOS ) related to surgery and recovery. Recommendations include providing adequate hydration, urine output, and a stable BP throughout the perioperative time period. This may require monitoring such as a chance catheter. I will be assisting in these interventions as indicated. Avoidance of any additional nephrotoxins including LARA II inhibitors such as Mobic ( Meloxicam ) and Celebrex ( Celecoxib ) is also advised. BRI I and ARB's should be held postoperatively until kidney function, urine output, and BP are confirmed stable. Stage 1: Normal GFR with persistent albuminemia with GFR >90 Creatinine Date Value Ref Range Status 03/19/2023 1.10 0.60 - 1.30 mg/dL Final 10/04/2022 0.89 0.60 - 1.30 mg/dL Final 10/03/2022 0.97 0.60 - 1.30 mg/dL Final 09/19/2022 1.04 0.60 - 1.30 mg/dL Final Gout ( M 10.9 ); chronic pre-existing condition present on admission but without current exacerbation noted. Plan to stop all NSAIDS prior to surgical procedure due to anticoagulant effects. Tylenol would be acceptable for alternative pain control. Medications for treatment of Gout other than NSAIDS can be continued but are not ultimately necessary the morning of surgery. Plan to continue to watch for symptoms. HISTORY OF PRESENT ILLNESS : Vanessa Dunn Gladys, 67 y.o. female presenting for preoperative medical risk stratification at the request of Dr. Barber for Left Knee I&D with Polychange. This patient originally underwent a left total knee replacement approximately 6 years ago and had a revision procedure on 10/02/2022. In the leftknee since his previous surgery he states she has had continued pain in September 2022. They have had some problems with healing and some evidence of the left knee infection. They have been placed on the OR schedule for a left knee incision and drainage with possible poly change on 03/19/2023. Internal Medicine has been consulted for preoperative medical risks stratification as well as advice regarding this patient's chronic medical conditions. Please see below regarding the status of active medical conditions and assessment and plan for preoperative medical risk stratification. MEDICAL ILLNESSES : HTN Orthostatic Hypotension-midodrine discontinued Right- sided heart failure-on diuretics-mildly reduced LV systolic function Mild Pulmonary HTN CAD - nonobstructive based on CATH 2017 Cardiac clearance from 09/25/22; Dr. Campos [id number] with CPAP CKD Stage 4-baseline creat 1.04 Nephrology clearance from 09/30/22; Dr Medina Secondary renal hyperparathyroidism GERD Chronic anemia Prediabetes ; patient denies overt diabetes Asthma Neuropathy Fibromyalgia Morbid obesity-BMI 40 LBBB Thrombophilia-has been on blood thinner previously - h/o DVT/PE Lower extremity edema-on bumetamide Gout PAST MEDICAL HISTORY : SURGERIES : Left TK revision 10/02/22 Right TKA 3 years ago Left TKA 6 years ago Catheterization-showed no coronary artery disease Thyroid biopsy Appy Colonoscopy Foot surgery Gastric bypass- T&A MEDICATIONS Reviewed and Confirmed : Current Outpatient Medications Medication Instructions albuterol HFA (PROAIR HFA ; PROVENTIL HFA ; VENTOLIN HFA) 90 mcg/actuation inhaler 2 puffs, inhalation, Every 6 hours PRN alendronate (FOSAMAX) 70 mg, oral, Every 7 days, Mondays allopurinoL (ZYLOPRIM) 200 mg, oral, Daily budesonide-formoteroL (SYMBICORT) 160-4.5 mcg/actuation inhaler 2 puffs, inhalation, 2 times daily,Rinse mouth with water after use to reduce aftertaste and incidence of candidiasis. Do not swallow. bumetanide (BUMEX) 1 mg, oral, 2 times daily docusate sodium (COLACE) 100 mg, oral, 2 times daily PRN fluconazole (DIFLUCAN) 100 mg, oral, Daily PRN fluticasone propionate (FLONASE) 50 mcg/actuation nasal spray 1-2 sprays, Each Nostril, Daily PRN, Shake gently. Before first use, prime pump. After use, clean tip and replace cap. gabapentin (NEURONTIN) 300 mg, oral, 3 times daily magnesium oxide 500 mg, oral, Nightly Mounjaro 7.5 mg, subcutaneous, Weekly, Mondays ondansetron (ZOFRAN) 4 mg tablet oral, Every 8 hours PRN oxyCODONE (OXY-IR) 5-10 mg, oral, Daily PRN pantoprazole (PROTONIX) 40 mg, oral, 2 times daily, Do not crush, chew, or split. no122/iron/folic acid ( MULTI ORAL) 1 tablet, oral, Weekly rivaroxaban (XARELTO) 10 mg, oral, Daily, Take with food. tiZANidine (ZANAFLEX) 12-16 mg, oral, Nightly topiramate (TOPAMAX) 50 mg, oral, Daily at 4 pm Current Facility-Administered Medications: ceFAZolin (ANCEF) 2 gram/20 mL IV syringe 2 g, 2 g, intravenous, Once, Anusha Barber MD dexamethasone (DECADRON) injection 10 mg, 10 mg, intravenous, Once, Anusha Barber MD gentamicin (GARAMYCIN) 370 mg in sodium chloride 0.9 % 100 mL IVPB, 5 mg/kg (Adjusted), intravenous, Once, Anusha Barber MD tranexamic acid (CYKLOKAPRON) injection 1,000 mg, 1,000 mg, intravenous, Once, Anusha Barber MD Percocet 1 tab taken today No longer takes midodrine Allergies : Adhesive Tape-silicones - Wound High Allergy 10/01/2022 Aspirin - Hives, Shortness of breath High Allergy 10/01/2022 Latex - Wound High Allergy 10/01/2022 Penicillins - Hives, Shortness of breath High Allergy 10/01/2022 Sulfa (Sulfonamide Antibiotics) - Hives, Shortness of breath High Allergy 10/01/2022 Bactrim [Sulfamethoxazole-trimethoprim] - Unknown Medium Unspecified 10/01/2022 Contact Metal Agent - Itching Medium Allergy 10/01/2022 Tramadol - Unknown Low Unspecified 10/01/2022 Adverse Reactions/Drug Intolerances Ibuprofen - Other Medium Intolerance 10/01/2022 - Cant take due to kidney failure Band-aids - blisters Metal Allergies : Gold and Nickel-itching TRANSFUSION HISTORY Positive transfusion without adverse reaction No Previous Transfusion Related Reactions No Rastafari Reasons To Avoid Blood Transfusions ANESTHESIA HISTORY No Previous Adverse Reactions to Anesthesia No Personal History of a Bleeding Disorders or Bleeding Episodes Family History : Pt adopted, history unknown Social History : Tobacco Use: Denies Alcohol Use: Denies Substance Use: Denies REVIEW OF SYSTEMS Constitutional: Denies fever Head/Neck: Denies headache Eye: Denies eye pain Ear/Nose/Mouth/Throat: Denies sore throat Cardiovascular: Denies chest pain or pressure Respiratory: Denies shortness of breath or dyspnea Gastrointestinal: Denies abdominal pain or cramping Neurologic : Denies any new numbness. Denies any new weakness Genitourinary: Denies urinary retention or incomplete voiding Skin: Denies rash VITALS : BP 129/61 HR 66 RR 16 O2Sat 100% Temp 98.1 Ht 5'3 Wt 226 lbs BMI 40 Visit Vitals BP 129/61 Pulse 68 Temp 36.7 C (98.1 F) Resp 14 Ht 1.6 m (63 ) Wt 103 kg (226 lb 3.1 oz) SpO2 98% BMI 40.07 kg/m Smoking Status Former BSA 2.04 m PHYSICAL EXAM : VITALS Visit Vitals BP 129/61 Pulse 68 Temp 36.7 C (98.1 F) Resp 14 Ht 1.6 m (63 ) Wt 103 kg (226 lb 3.1 oz) SpO2 98% BMI 40.07 kg/m Smoking Status Former BSA 2.04 m General - No acute distress; Alert and conversational Skin - Normal skin turgor and texture; No rashes or ulcerations noted Eyes - PERRLA; Anicteric Sclerae ENMT - Hearing Intact; Oropharynx clear with moist mucosa Cardiology - S1 S2 with regular rhythm. No tachycardia noted; No peripheral edema noted Respiratory - Clear to auscultate bilaterally; No accessory respiratory muscle use noted Abdominal - Non-tender to palpation; Soft without obvious mass noted Musculoskeletal - No clubbing of digits noted; No cyanosis of digits noted Surgical site exam deferred to the surgeon who will be seeing the patient in preop Psychiatric - Appropriate affect, Alert and oriented to person, place, and situation RESULTS : EKG INDEPENDENTLY INTERPRETED : EKG 09/19/22 shows sinus rhythm at 67 bpm. There is evidence of a left bundle branch block LABS ORDERED : CBC and BMP ordered ADDITIONAL RELEVANT RESULTS AND/OR RECORDS REVIEWED : 02/24/17 Echo-Mildly reduced LV systolic function 02/24/17 Lexiscan BRAND RECORDER-mildly diminished LV systolic function with an EF of 48% 03/05/17-Non obstructive 3 vessel CAD LABS CBC Lab Results Component Value Date WBC 12.4 (H) 03/19/2023 HGB 12.9 03/19/2023 HCT 40.6 03/19/2023 MCV 87.7 03/19/2023 PLT 268 03/19/2023 Results from last 7 days Lab Units 03/19/23 1145 WBC AUTO K/mcL 12.4* HEMOGLOBIN g/dL 12.9 HEMATOCRIT % 40.6 PLATELETS K/mcL 268 LYMPHS PCT AUTO % 10.3* MONO PCT AUTO % 8.1 EOS PCT AUTO % 0.6 CMP Lab Results Component Value Date NA 140 03/19/2023 K 4.4 03/19/2023 CL 104 03/19/2023 CO2 27 03/19/2023 BUN 36 (H) 03/19/2023 CREATININE 1.10 03/19/2023 GLUCOSE 97 03/19/2023 [place] [id number] Evaluation note* Encounter Date Diagnosis Assessment Notes Treatment Notes Treatment Clinical Notes Jan, Pre-diabetes (ICD-10 - R73.09) Jan, BMI 40.0-44.9, adult (ICD-10 - Z68.41) Jan, Hip arthritis (ICD-1 0 - M16.10) Jan, Knee osteoarthritis (ICD-10 - M17.9) Jan, Hypertension (ICD-10 - I10) Jan, Gastric bypass statu s for obesity (ICD-10 - Z98.84) Jan, JEREMY (obstructive sleep apnea) (ICD-10 - G47.33) Jan, Heart failure (ICD-1 0 - I50.9) Jan, Metabolic syndrome X (ICD-10 - E88.81) Jan, Medication managemen t (ICD-10 - Z79.899) Jan, Low back derangement syndrome (ICD-10 - M53.86) [facility] Other 03-21-2023 Evaluation note* Encounter Date Diagnosis Assessment Notes Treatment Notes Treatment Clinical Notes Dec, Asthma, moderate persistent (ICD-10 - J45.40) Dec, Morbid obesity (ICD-10 - E66.01) Dec, JEREMY (obstructive sleep apnea) (ICD-10 - G47.33) Dec, Allergic rhinitis (ICD-10 - J30.9) Dec, GERD (gastroesophageal reflux disease) (ICD-10 - K21.9) [facility] Other 03-02-2023 NoteCONSULTATION CONSULTATION DATE: 12/18/2022 HISTORY: This is a 67-year-old female who returns to the clinic for medication maintenance for her chronic left knee pain. The patient had a total knee replacement done on October 02, 2022 and this was done by Dr. Elisabeth martinez in [place]. She, for a short time, was in a nursing facility for rehab and had a wound VAC placed. We manage her Percocet 5/325 b.i.d. She complains her pain is anywhere from 5-7/10, depending on activity. Bending, standing, lifting and lying aggravate her pain. At times, she will use a walker, but presents today unassisted. In addition to the Percocet, she takes tizanidine 4 mg and gabapentin 300 mg t.i.d. Patient's REVIEW OF SYSTEMS / PAST MEDICAL HISTORY / ALLERGIES and IMAGES have been reviewed and noted on the chart. PHYSICAL EXAM: VITAL SIGNS: Blood pressure is 155/85. Heart rate is 79. Temperature is 97.7. She is 5'3 and weighs 109 kg. GENERAL IMPRESSION: Pleasant, appropriate, in no acute distress. FOCUSED EXAM - MUSCULOSKELETAL: Motor is 4/5 bilaterally, left increased weakness more than the right. Patient dose walk with a slow but stable antalgic gait, unassisted today. Left anterior tibialis and quadriceps with slight increased weakness noted. NEUROLOGICALLY: Radicular sensory is intact. Negative polyneuropathy. Bilateral patellar reflexes are 1/2. DIAGNOSIS: Chronic pain syndrome and left chronic knee pain. PLAN: We will continue to medically manage her Percocet 5/325 b.i.d. Recommended a multivitamin regimen which she does take sporadically. We will see her in three months' time to continue her Percocet prescription, and she agrees with this plan.[id number] Evaluation note* Encounter Date Diagnosis Assessment Notes Treatment Notes Treatment Clinical Notes Nov, Pre-diabetes (ICD-10 - R73.09) [facility] Other [id number] History of Present illness Narrative* Brandy Mullen RN - 10/06/2022 4:58 PM EST Patient met all goals and was given discharge instruction packet to take to facility by RN. Patientaware of when they last had pain meds and when they can have them again next. Patient escorted to transport vehicle via wheelchair by MST. This RN attempted to call report two times with no answer. Voicemail and callback number left. * Yasmin Beck, PT - 10/06/2022 2:55 PM EST [facility] [place] [facility] Treatment PT Discharge Recommendations: nursing home facility placement Distance Ambulated (ft): 50 ([id number]) Device: Rolling walker L Knee Flexion 0-140: 0-77 Fall prevention education provided including use of call light in hospital, use of appropriate assistive device, safe mobility techniques, and safety measures at home. Continue PT as per POC. Subjective Pt supine upon arrival. Pt awaiting ride to SNF as precert received. Pt requesting Benadryl due to itching after session. MARIBELL Nava notified. Continues to be unable to SLR or get LE in/out of bed unassisted. Instructed in importance of completing for LE strengthening. Pt like to use sock to assist LE into bed. Objective 10/06/22 1455 General Family/Caregiver Present No PT Time Calculation PT Start Time 1455 PT Stop Time 1521 PT Time Calculation (min) 26 min Pain Assessment Pain Assessment 0-10 Pain Score 5 - Moderate pain Pain Location Knee Pain Orientation Left Cognition Orientation Level Oriented X4 Bed Mobility Sitting to Lying Assistance Minimum assistance Lying to Sitting Assistance Minimum assistance Transfers Sit to Stand Assistance Supervision or touching assistance Chair/Bed to Chair/Bed Transfer Assistance Supervision or touching assistance Toilet Transfer Assistance Supervision or touching assistance Ambulation Walking Assistance Contact guard Device Rolling walker Distance Ambulated (ft) 50 Comments [id number] with FWW Procedures Procedures Gait Training;Therapeutic Exercise Gait Training Gait Training Time Entry 15 Gait Training Activity 1 Gait training [id number] to toilet cga Gait Training Activity 2 Gait training [id number] after toileting task, cga Therapeutic Exercise Therapeutic Exercise Time Entry 11 Therapeutic Exercise Activity 1 B LE VRE x10 reps Therapeutic Exercise Activity 2 HEP x10 reps Therapeutic Exercise Activity 3 Min A for SLR x10 Therapeutic Exercise Activity 4 Handout and pink cushion packed for SNF Other Activity Other Activity 1 Requesting Benadryl due to itching/adhesive reaction PT Assessment Comments Requesting Benadryl due to itching/adhesive reaction Medical Staff Made Aware Yes Comments MARIBELL Nava notified Goals/Education Encounter Problems Encounter Problems (Active) Template: Physical Therapy Problem: PT Short Term Goals Dates: Start: 10/02/22 Goal: Pt will transfer with SBA. Dates: Start: 10/02/22 Expected End: 10/04/22 Outcomes Date/Time User Outcome 10/06/22 1526 Yasmin Beck, RANDOLPH Progressing Goal: Pt will ambulate 150 ft. with wheeled walker and SBA Dates: Start: 10/02/22 Expected End: 10/04/22 Outcomes Date/Time User Outcome 10/06/22 1526 Yasmin Beck PT Progressing Goal: Pt will demo good understanding of HEP protocol Dates: Start: 10/02/22 Expected End: 10/04/22 Outcomes Date/Time User Outcome 10/06/22 152 Yasmin Beck PT Progressing Goal: Pt will ascend/descend steps with CGA and LRAD Dates: Start: 10/02/22 Expected End: 10/04/22 Outcomes Date/Time User Outcome 10/06/22 152 Yasmin Beck, PT Progressing Encounter Problems (Resolved) There are no resolved problems. Education Documentation Home Exercise Program, taught by Yasmin Beck PT at 10/06/2022 2:55 PM. Learner: Patient Readiness: Acceptance Method: Explanation, Demonstration Response: Verbalizes Understanding, Demonstrated Understanding Comment: Gait with FWW sequencing and safety. Mobility Training, taught by Yasmin Beck PT at 10/06/2022 2:55 PM. Learner: Patient Readiness: Acceptance Method: Explanation, Demonstration Response: Verbalizes Understanding, Demonstrated Understanding Comment: Gait with FWW sequencing and safety. Home Exercise Program, taught by Yasmin Beck PT at 10/06/2022 10:36 AM. Learner: Patient Readiness: Acceptance Method: Demonstration, Explanation, Handout Response: Verbalizes Understanding, Demonstrated Understanding, Indicates Understanding in Bedside Comment: Reviewed handout for HEP. Min A for SLR due to weakness. Bed mobility and transfer training with verbal instruction. Icing/positioning education. Mobility Training, taught by Yasmni Beck PT at 10/06/2022 10:36 AM. Learner: Patient Readiness: Acceptance Method: Demonstration, Explanation, Handout Response: Verbalizes Understanding, Demonstrated Understanding, Indicates Understanding in Bedside Comment: Reviewed handout for HEP. Min A for SLR due to weakness. Bed mobility and transfer training with verbal instruction. Icing/positioning education. Education Comments No comments found. * Julia Meredith RN - 10/06/2022 10:49 AM EST CM updated by Zunilda at [facility] that precert had been obtained and they were able to admit patient to facility today. CM updated patient at bedside and she was updating her insurance company to keep scheduled transport time of noon. CM has faxed HENS, discharge RX, instructions and orders to [facility]: [phone]. RX in folder: oxycodone, xarelto and zofran Discharge packet completed, will place at [facility]. No further CM needs at this time. RN number for report: [phone] * Yasmin Beck PT - 10/06/2022 9:51 AM EST [facility] Treatment PT Discharge Recommendations: nursing home facility placement Distance Ambulated (ft): 45 Device: Rolling walker L Knee Flexion 0-140: 0-77 Fall prevention education provided including use of call light in hospital, use of appropriate assistive device, safe mobility techniques, and safety measures at home. Continue PT as per POC. Subjective Pt supine in bed upon arrival. Pt states leaving this afternoon for rehab, but motivated for session. Continues to require assist for LE into/out of bed. + void while up with PT. Ice pack applied after session. Pt continues to be unable to SLR unassisted at this time. Objective 10/06/22 0951 General Family/Caregiver Present No PT Time Calculation PT Start Time 0951 PT Stop Time 1022 PT Time Calculation (min) 31 min Pain Assessment Pain Assessment 0-10 Pain Score 7 Pain Type Surgical pain;Acute pain Pain Location Knee Pain Orientation Left Pain Descriptors Aching Pain Interventions Repositioned;Cold applied Dynamic Standing Balance Dynamic Standing-Level of Assistance Supervision or touching assistance Bed Mobility Sitting to Lying Assistance Minimum assistance Lying to Sitting Assistance Minimum assistance Bed Mobility Comments Assist LE into/out of bed Transfers Sit to Stand Assistance Supervision or touching assistance Chair/Bed to Chair/Bed Transfer Assistance Supervision or touching assistance Toilet Transfer Assistance Contact guard Ambulation Walking Assistance Contact guard Device Rolling walker Pattern L Decreased stance time Distance Ambulated (ft) 45 Comments [id number] with FWW, [id number] with FWW after toileting AROM LLE (degrees) L Knee Flexion 0-140 0-77 Procedures Procedures Gait Training;Therapeutic Exercise Gait Training Gait Training Time Entry 15 Gait Training Activity 1 Gait with FWW [id number] prior to toileting cga Gait Training Activity 2 Gait with FWW [id number] after toileting, using personal FWW Therapeutic Activity Therapeutic Activity Time Entry 6 Therapeutic Activity 1 Toileting task cga Therapeutic Activity 2 Bed mobility with Min A for L LE due to pain Therapeutic Activity 3 Ice pack applied to L LE after session Therapeutic Exercise Therapeutic Exercise Time Entry 10 Therapeutic Exercise Activity 1 B LE VRE x10 reps Therapeutic Exercise Activity 2 HEP x10 reps with Min A for SLR PT Assessment Comments Toileting while up with PT, + void, planned d/c today Medical Staff Made Aware Yes Comments MARIBELL Nava notified Goals/Education Encounter Problems Encounter Problems (Active) Template: Physical Therapy Problem: PT Short Term Goals Dates: Start: 10/02/22 Goal: Pt will transfer with SBA. Dates: Start: 10/02/22 Expected End: 10/04/22 Outcomes Date/Time User Outcome 10/06/22 1035 Yasmin Beck PT Progressing Goal: Pt will ambulate 150 ft. with wheeled walker and SBA Dates: Start: 10/02/22 Expected End: 10/04/22 Outcomes Date/Time User Outcome 10/06/22 1035 Yasmin Beck PT Progressing Goal: Pt will demo good understanding of HEP protocol Dates: Start: 10/02/22 Expected End: 10/04/22 Outcomes Date/Time User Outcome 10/06/22 1035 Yasmin Beck PT Progressing Goal: Pt will ascend/descend steps with CGA and LRAD Dates: Start: 10/02/22 Expected End: 10/04/22 Outcomes Date/Time User Outcome 10/06/22 1035 Yasmin Beck PT Progressing Encounter Problems (Resolved) There are no resolved problems. Education Documentation Home Exercise Program, taught by Yasmin Beck PT at 10/06/2022 10:36 AM. Learner: Patient Readiness: Acceptance Method: Demonstration, Explanation, Handout Response: Verbalizes Understanding, Demonstrated Understanding, Indicates Understanding in Bedside Comment: Reviewed handout for HEP. Min A for SLR due to weakness. Bed mobility and transfer training with verbal instruction. Icing/positioning education. Mobility Training, taught by Yasmin Beck PT at 10/06/2022 10:36 AM. Learner: Patient Readiness: Acceptance Method: Demonstration, Explanation, Handout Response: Verbalizes Understanding, Demonstrated Understanding, Indicates Understanding in Bedside Comment: Reviewed handout for HEP. Min A for SLR due to weakness. Bed mobility and transfer training with verbal instruction. Icing/positioning education. Education Comments No comments found. * Julia Meredith RN - 10/06/2022 8:26 AM EST CM into patient's room, introduced self and role. Patient whiteboard updated. 2nd copy IMM providedto patient at bedside, without questions/concerns. Patient updated that CM has spoken with admissions at [facility] and they are still awaiting precert. CM spoke with insurance transport at patient's request on patient's phone at bedside- updated that we still do not have authorization from insurance company for patient to admit to facility at this time and we will update as soon as we hear anything. CM to follow. * Julia Meredith RN - 10/06/2022 8:14 AM EST CM made OB call to [facility]- [phone]-spoke with Thuy in admissions- she has already sent a note to insurance [employer] this morning to check on precert status. CM has faxed updated PT and progress notes to [phone]- will update patient at bedside that we still are awaiting precert- CM to follow. * Harshad Hickey MD - 10/06/2022 7:09 AM EST [facility] - PROGRESS NOTE Patient Name : Castillo Graham Patient : 1955 Patient Admit Date : 10/02/2022 Admission Diagnosis : Postoperative Medical Comanagement Provider Name : Harshad Hickey MD Date Of Service : 10/06/22 IMPRESSION AND PLAN : This 67 y.o. female, status post Procedure(s) (LRB): Left knee revision arthroplasty poly exchange (Left) on 10/02/[address] Barber[address] is currently recovering POD#4. EBL at time of surgery was noted be 50 mL I have seen the patient personally today and reviewed any available lab results on this patient. Admission medication reconciliation has been previously completed and in addition multimodal pain medications as well as as needed medications have been nervously ordered. A medical consult has been ordered by the surgeon for perioperative management of the patient's chronic medical conditions including the following . . . Acute postprocedural pain. Reasonably controlled at this point. Continue current protocol Congestive heart failure. Patient continues to remain clinically well compensated on today's exam. No current cardiopulmonary complaints. Patient is on major drying and has been reordered Diabetes Mellitus Type 2 ( E 11.9 )-patient's usual home diabetic regimen has been reordered for hospital use in addition with additional sliding scale insulin. [id number] glucose results have been reviewed. 0 Lab Value Date/Time GLUCOSE 93 10/06/2022 0446 GLUCOSE 133 (H) 10/05/2022 2103 GLUCOSE 101 (H) 10/05/2022 1802 GLUCOSE 141 (H) 10/05/2022 1121 GLUCOSE 125 (H) 10/04/20222000 Neuropathy. Controlled on Topamax and gabapentin which have been reordered GERD. Currently controlled on PPI. Continue as directed Asthma - Mild & intermittent. (J45.20) Chronic condition controlled with home prescription medications/ inhalers, which have been reordered. Remains asymptomatic from pulmonary standpoint. No bronchospasm appreciated on exam this morning. We will continue PRN Duo Nebs while hospitalized. Morbid Obesity BMI with current BMI of 43. Chronic condition present on admission, patient will require close monitoring of respiratory status while hospitalized including use of continuous pulse oximeter and cautious use of opiate-based pain medications. DVT prophylaxis is recommended per current ACC P guidelines. CKD - (Stage III ) - Chronic condition and present on admission. Urine output reviewed and reasonable following surgery overnight . Have recomended avoidence of nephrotoxic meds, specifically-NSAIDs/Lara 2 inhibitors specifically Celebrex/meloxicam. Will continue to monitor renal function & urine output closely while hospitalized Creatinine Date Value Ref Range Status 10/04/2022 0.89 0.60 - 1.30 mg/dL Final 10/03/2022 0.97 0.60 - 1.30 mg/dL Final 09/19/2022 1.04 0.60 - 1.30 mg/dL Final DVT prophylaxis is recommend as per current ACCP guidelines. Due to additional risk factors consideration should be given for use of Lovenox, Arixtra, or Novel oral anticoagulant. This decision will be left to the discretion of the primary surgical service. Will encourage Venous return exercises. Xarelto use noted by surgeon. Awaiting alf home placement. This patient will be considered acceptable for discharge from a medical perspective if the following criteria are met . . . 1. Oxygen Saturations > 90% on Room Air 2. Able to void without difficulty 3. Meets Physical Therapy goals for discharge 4. Passing Flatus without nausea vomiting or abdominal distention 5. Cleared for discharge by surgeon 6. Discharge medication reconciliation completed, defer post discharge management of anticoagulants, DVT prophylaxis, NSAIDs, opiates, and antibiotics to surgical service. Subjective Patient reports pain is currently tolerable on current pain regimen. Currently rating pain at: Moderate currently rating 5 today Flatus: Yes. No laxative yet reported. Voiding: Yes Ambulation: 30 feet yesterday REVIEW OF SYSTEMS Cardiovascular: Denies chest pain Respiratory: Denies shortness of breath or cough Gastrointestinal: Denies abdominal pain or nausea/vomiting Genitourinary: Denies urinary retention or incomplete voiding VITALS : Visit Vitals BP 124/70 Pulse 68 Temp 37 C (98.6 F) Resp 14 Ht 1.6 m (63 ) Wt 110 kg (242 lb 11.6 oz) SpO2 98% BMI 43.00 kg/m Smoking Status Former BSA 2.1 m I&O: No intake/output data recorded. No intake/output data recorded. PHYSICAL EXAM : General - No acute distress; Alert and conversational Cardiology - No tachycardia noted, regular rate and rhythm. No peripheral edema noted Respiratory - Clear to auscultate bilaterally; No accessory respiratory muscle use noted; No wheezing noted Abdominal -protuberant. No distention. Non-tender to palpation; positive bowel sounds Musculoskeletal - No calf tenderness noted on palpation. Left knee bandaged. Wound VAC is in place. Psychiatric - Appropriate affect, Alert and oriented to person, place, and situation Neurologic -no focal deficits. RESULTS : LABS most recent labs reviewed below Results from last 7 days Lab Units 10/06/22 0446 10/05/22 2103 10/05/22 1802 10/04/22 1051 10/04/22 0641 10/03/22 0529 10/03/22 0526 SODIUM mmol/L -- -- -- -- 141 -- 139 POTASSIUM mmol/L -- -- -- -- 4.0 -- 4.6 CHLORIDE mmol/L -- -- -- -- 107 -- 105 CO2 mmol/L -- -- -- -- 26 -- 25 BUN mg/dL -- -- -- -- 14 -- 19 CREATININE mg/dL -- -- -- -- 0.89 -- 0.97 CALCIUM mg/dL -- -- -- -- 9.3 -- 9.0 POCT GLUCOSE mg/dL 93 133* 101* < > -- < > -- GLUCOSE mg/dL -- -- -- -- 94 -- 132* < > = values in this interval not displayed. Results from last 7 days Lab Units 10/04/22 0641 10/03/22 0526 WBC AUTO K/mcL 9.2 10.2 HEMOGLOBIN g/dL 12.2 13.0 HEMATOCRIT % 39.6 40.6 PLATELETS K/mcL 194 243 Admission on 10/02/2022 Component Date Value SARS-COV-2 Screen 10/02/2022 Not Detected Culture, Anaerobic 10/02/2022 No anaerobes isolated after 48 hours, culture will be held for 4 days. Culture, Fungus 10/02/2022 Culture in progress Culture AFB 10/02/2022 Culture in progress AFB Stain 10/02/2022 No acid fast bacilli seen Fluid Culture 10/02/2022 No growth at 3 days Gram Stain Result 10/02/2022 No Polymorphonuclear leukocytes Gram Stain Result 10/02/2022 No Epithelial cells Gram Stain Result 10/02/2022 No organisms seen Body Fluid Source 10/02/2022 Synovial Body Fluid Clarity 10/02/2022 Hazy Body Fluid Color 10/02/2022 Yellow Body Fluid RBC 10/02/2022 5,000 Body Fluid Total Nucleat* 10/02/2022 167 Culture, Anaerobic 10/02/2022 No anaerobes isolated after 48 hours, culture will be held for 4 days. Culture, Anaerobic 10/02/2022 No anaerobes isolated after 48 hours, culture will be held for 4 days. Culture, Anaerobic 10/02/2022 No anaerobes isolated after 48 hours, culture will be held for 4 days. Culture, Anaerobic 10/02/2022 No anaerobes isolated after 48 hours, culture will be held for 4 days. Culture, Fungus 10/02/2022 Culture in progress Culture, Fungus 10/02/2022 Culture in progress Culture, Fungus 10/02/2022 Culture in progress Culture, Fungus 10/02/2022 Culture in progress Final Diagnosis 10/02/2022 Value:This result contains rich text formatting which cannot be displayed here. Gross Description 10/02/2022 Value:This result contains rich text formatting which cannot be displayed here. Disclaimer 10/02/2022 Value:This result contains rich text formatting which cannot be displayed here. Culture AFB 10/02/2022 Culture in progress Culture AFB 10/02/2022 Culture in progress AFB Stain 10/02/2022 No acid fast bacilli seen Culture AFB 10/02/2022 Culture in progress AFB Stain 10/02/2022 No acid fast bacilli seen Culture AFB 10/02/2022 Culture in progress AFB Stain 10/02/2022 No acid fast bacilli seen Culture, Tissue 10/02/2022 No growth at 3 days Gram Stain Result 10/02/2022 No Polymorphonuclear leukocytes Gram Stain Result 10/02/2022 No Epithelial cells Gram Stain Result 10/02/2022 No organisms seen Culture, Tissue 10/02/2022 No growth at 3 days Gram Stain Result 10/02/2022 No Polymorphonuclear leukocytes Gram Stain Result 10/02/2022 No Epithelial cells Gram Stain Result 10/02/2022 No organisms seen Culture, Tissue 10/02/2022 No growth at 3 days Gram Stain Result 10/02/2022 No Polymorphonuclear leukocytes Gram Stain Result 10/02/2022 No Epithelial cells Gram Stain Result 10/02/2022 No organisms seen Culture, Tissue 10/02/2022 No growth at 3 days Gram Stain Result 10/02/2022 No Polymorphonuclear leukocytes Gram Stain Result 10/02/2022 No Epithelial cells Gram Stain Result 10/02/2022 No organisms seen Fluid Neutrophils 10/02/2022 3.0 Fluid Lymphocytes 10/02/2022 71.0 Fluid Monocytes/Macropha* 10/02/2022 17.0 Fluid Other Cells 10/02/2022 9.0 Glucose POCT 10/02/2022 120 (H) Glucose POCT 10/02/2022 78 Glucose POCT 10/02/2022 121 (H) Glucose POCT 10/02/2022 188 (H) Sodium 10/03/2022 139 Potassium 10/03/2022 4.6 Chloride 10/03/2022 105 CO2 10/03/2022 25 Anion Gap 10/03/2022 9 Glucose 10/03/2022 132 (H) BUN 10/03/2022 19 Creatinine 10/03/2022 0.97 eGFR 10/03/2022 64 BUN/Creatinine Ratio 10/03/2022 19.6 Calcium 10/03/2022 9.0 WBC 10/03/2022 10.2 RBC 10/03/2022 4.52 Hemoglobin 10/03/2022 13.0 Hematocrit 10/03/2022 40.6 MCV 10/03/2022 89.8 MCH 10/03/2022 28.8 MCHC 10/03/2022 32.0 RDW 10/03/2022 13.9 Platelets 10/03/2022 243 MPV 10/03/2022 10.0 Glucose POCT 10/03/2022 115 (H) Glucose POCT 10/03/2022 116 (H) Glucose POCT 10/03/2022 150 (H) Glucose POCT 10/03/2022 122 (H) Sodium 10/04/2022 141 Potassium 10/04/2022 4.0 Chloride 10/04/2022 107 CO2 10/04/2022 26 Anion Gap 10/04/2022 8 Glucose 10/04/2022 94 BUN 10/04/2022 14 Creatinine 10/04/2022 0.89 eGFR 10/04/2022 71 BUN/Creatinine Ratio 10/04/2022 15.7 Calcium 10/04/2022 9.3 WBC 10/04/2022 9.2 RBC 10/04/2022 4.40 Hemoglobin 10/04/2022 12.2 Hematocrit 10/04/2022 39.6 MCV 10/04/2022 90.0 MCH 10/04/2022 27.7 MCHC 10/04/2022 30.8 RDW 10/04/2022 13.9 Platelets 10/04/2022 194 MPV 10/04/2022 10.3 Glucose POCT 10/04/2022 87 Glucose POCT 10/04/2022 93 Glucose POCT 10/04/2022 94 Glucose POCT 10/04/2022 125 (H) Glucose POCT 10/05/2022 141 (H) Glucose POCT 10/05/2022 133 (H) Glucose POCT 10/05/2022 101 (H) Glucose POCT 10/06/2022 93 * Srinivasa Olvera RN - 10/06/2022 6:11 AM EST Goals: Identify possible barriers to meeting goals/advancing plan of care: none Stability of the patient: Moderately Stable - Low risk of patient condition declining or worsening End of Shift Summary: patient pain is being managed well, pt. Resting. Will continue to monitor * Bobby Santos MD - 10/06/2022 6:03 AM EST [facility] Progress Note 4 Days Post-Op: * Left knee revision arthroplasty poly exchange LOS: 4 days Subjective: Patient doing well. States that pain is tolerable with current regimen. Tolerating dietwithout nausea or vomiting. Ambulated 30' with PT yesterday. Objective: Last Recorded Vitals: Blood pressure 124/70, pulse 68, temperature 37 C (98.6 F), resp. rate 14, height 1.6 m (63 ), weight 110 kg (242 lb 11.6 oz), SpO2 98 %. Gen: comfortable, NAD Focused Musculoskeletal Exam: Prevena wound vac in place with good seal. No drainage or swelling. Neurovascularly intact in the operative extremity. LABS: Lab Results Component Value Date WBC 9.2 10/04/2022 HGB 12.2 10/04/2022 HCT 39.6 10/04/2022 MCV 90.0 10/04/2022 PLT 194 10/04/2022 Lab Results Component Value Date GLUCOSE 93 10/06/2022 CALCIUM 9.3 10/04/2022 NA 141 10/04/2022 K 4.0 10/04/2022 CO2 26 10/04/2022 CL 107 10/04/2022 BUN 14 10/04/2022 CREATININE 0.89 10/04/2022 No results found for: INR, PROTIME No results found for: PTT Assessment & Plan 67 y.o. female 4 Days Post-Op status post * Left knee revision arthroplasty poly exchange. - WBAT on the operative extremity - Xarelto 10mg daily x 2 weeks, then Aspirin 81mg BID x 4 weeks for DVT ppx - PT - SNF may remove prevena incisional wound vac in 1 week. Patient endorses itching near tape, advised trialing Benadryl as we want to try to leave wound vac on through completion. - Follow-up in clinic in 2-3 weeks for staple removal - Plan for discharge to Subacute Rehab Facility ([facility] or [facility]) when cleared by PT and medically stable * Shawn Rinaldi RN - 10/05/2022 2:40 PM EST Problem: Sensory: Goal: Pain level will improve or be tolerable Outcome: Progressing Problem: Mobility Goal: Patient will ambulate Outcome: Progressing Problem: Falls: Goal: Patient will not fall or injure themselves during hospitalization. Outcome: Progressing Goals: Identify possible barriers to meeting goals/advancing plan of care: Stability of the patient: Moderately Stable - Low risk of patient condition declining or worsening End of Shift Summary: * Amanda Gorman PTA - 10/05/2022 12:50 PM EST [facility] Physical Therapy Treatment PT Discharge Recommendations: nursing home facility placement Distance Ambulated (ft): 30 Device: Rolling walker L Knee Flexion 0-140: 5-55 Fall prevention education provided including use of call light in hospital, use of appropriate assistive device, safe mobility techniques, and safety measures at home. Continue PT as per POC. Subjective Patient in bed upon arrival to room and expecting lunch to arrive. Declines ambulation as she has just returned to bed but agreeable to there ex. Min/mod assist for there ex x 10. VREs completed. Allquestions answered and needs met. Ice pack repositioned and assisted with lunch set up upon arrivalto room. Patient pleasant and thankful throughout treatment. Continue as per Physical Therapy Plan of care until patient is discharged from [facility]. Objective 10/05/22 1250 General Family/Caregiver Present No PT Time Calculation PT Start Time 1250 PT Stop Time 1315 PT Time Calculation (min) 25 min Precautions Medical Precautions Fall Risk Safety Interventions Call miller within reach;Gait belt LLE Weight Bearing Status As Tolerated Pain Assessment Pain Assessment 0-10 Pain Score 5 - Moderate pain Pain Location Knee Pain Orientation Left Cognition Arousal/Alertness Appropriate responses to stimuli Orientation Level Oriented X4 Following Commands Follows all commands and directions without difficulty Bed Mobility Bed Mobility Comments declined ambulation as she has just returned to bed and lunch to arrive soon Transfers Transfer Comments declined ambulation as she has just returned to bed and lunch to arrive soon Ambulation Comments declined ambulation as she has just returned to bed and lunch to arrive soon AROM LLE (degrees) L Knee Flexion 0-140 5-55 Procedures Procedures Therapeutic Exercise;Therapeutic Activity Therapeutic Activity Therapeutic Activity Time Entry 10 Therapeutic Activity 1 Ice pack positioning Therapeutic Activity 2 rolling Therapeutic Activity 3 scooting up in bed Therapeutic Exercise Therapeutic Exercise Time Entry 15 Therapeutic Exercise Activity 1 HEP Therapeutic Exercise Activity 2 VRE PT Assessment Prognosis Good Evaluation/Treatment Tolerance Patient tolerated treatment well Plan PT Plan Skilled PT PT Discharge Recommendations nursing home facility placement Goals/Education Encounter Problems Encounter Problems (Active) Template: Physical Therapy Problem: PT Short Term Goals Dates: Start: 10/02/22 Goal: Pt will transfer with SBA. Dates: Start: 10/02/22 Expected End: 10/04/22 Outcomes Date/Time User Outcome 10/05/22 1055 Amanda Gorman PTA Progressing Goal: Pt will ambulate 150 ft. with wheeled walker and SBA Dates: Start: 10/02/22 Expected End: 10/04/22 Outcomes Date/Time User Outcome 10/05/22 1055 Amanda Gorman PTA Progressing Goal: Pt will demo good understanding of HEP protocol Dates: Start: 10/02/22 Expected End: 10/04/22 Outcomes Date/Time User Outcome 10/05/22 1332 Amanda Gorman PTA Progressing Goal: Pt will ascend/descend steps with CGA and LRAD Dates: Start: 10/02/22 Expected End: 10/04/22 Outcomes Date/Time User Outcome 10/04/22 2150 Jn Guillory RN Progressing Encounter Problems (Resolved) There are no resolved problems. Education Documentation Home Exercise Program, taught by Amanda Gorman PTA at 10/05/2022 1:32 PM. Learner: Patient Readiness: Acceptance Method: Explanation, Demonstration Response: Verbalizes Understanding, Demonstrated Understanding Explain call button use, taught by Amanda Gorman PTA at 10/05/2022 1:32 PM. Learner: Patient Readiness: Acceptance Method: Explanation, Demonstration Response: Verbalizes Understanding, Demonstrated Understanding Home Exercise Program, taught by Amanda Gorman PTA at 10/05/2022 10:56 AM. Learner: Patient Readiness: Acceptance Method: Explanation, Demonstration Response: Verbalizes Understanding, Demonstrated Understanding Mobility Training, taught by Amanda Gorman PTA at 10/05/2022 10:56 AM. Learner: Patient Readiness: Acceptance Method: Explanation, Demonstration Response: Verbalizes Understanding, Demonstrated Understanding Explain call button use, taught by Amanda Gorman PTA at 10/05/2022 10:56 AM. Learner: Patient Readiness: Acceptance Method: Explanation, Demonstration Response: Verbalizes Understanding, Demonstrated Understanding Teach fall prevention measures, taught by Amanda Gorman PTA at 10/05/2022 10:56 AM. Learner: Patient Readiness: Acceptance Method: Explanation, Demonstration Response: Verbalizes Understanding, Demonstrated Understanding Education Comments No comments found. * JAVED Franco - 10/05/2022 11:01 AM EST [facility] Progress Note 3 Days Post-Op: * Left knee revision arthroplasty poly exchange LOS: 3 days Subjective: Patient doing well. States that pain is tolerable with current regimen. Tolerating dietwithout nausea or vomiting. Objective: Last Recorded Vitals: Blood pressure (!) 145/81, pulse 81, temperature 36.8 C (98.2 F), resp. rate 18, height 1.6 m (63 ), weight 110 kg (242 lb 11.6 oz), SpO2 97 %. Gen: comfortable, NAD Focused Musculoskeletal Exam: Surgical incision/dressing clean, dry, and intact. No drainage or swelling. Neurovascularly intact in the operative extremity. LABS: Lab Results Component Value Date WBC 9.2 10/04/2022 HGB 12.2 10/04/2022 HCT 39.6 10/04/2022 MCV 90.0 10/04/2022 PLT 194 10/04/2022 Lab Results Component Value Date GLUCOSE 125 (H) 10/04/2022 CALCIUM 9.3 10/04/2022 NA 141 10/04/2022 K 4.0 10/04/2022 CO2 26 10/04/2022 CL 107 10/04/2022 BUN 14 10/04/2022 CREATININE 0.89 10/04/2022 No results found for: INR, PROTIME No results found for: PTT Assessment & Plan 67 y.o. female 3 Days Post-Op status post * Left knee revision arthroplasty poly exchange. - WBAT on the operative extremity - Xarelto 10mg daily x 2 weeks, then Aspirin 81mg BID x 4 weeks for DVT ppx - PT - SNF may remove prevena incisional wound vac in 1 week. Patient endorses itching near tape, advised trialing Benadryl as we want to try to leave wound vac on through completion. - Follow-up in clinic in 2-3 weeks for staple removal - Plan for discharge to Subacute Rehab Facility ([facility] or [facility]) when cleared by PT and medically stable * Amanda Gorman PTA - 10/05/2022 9:42 AM EST [facility] Physical Therapy Treatment PT Discharge Recommendations: nursing home facility placement Distance Ambulated (ft): 30 Device: Rolling walker L Knee Flexion 0-140: 5-60 (in sitting) Fall prevention education provided including use of call light in hospital, use of appropriate assistive device, safe mobility techniques, and safety measures at home. Continue PT as per POC. Subjective Patient in bed upon arrival to room and agreeable to treatment. Requesting to use bathroom. Patientunhappy with session yesterday and feels that she was pushed past her limits. Educated on importance of early and frequent ambulation and mobility. States understanding and feels she was rushed and not heard . Emotional support provided. Mobility noted below. All questions answered and needs met. Patient sitting in chair at EOB after treatment. Continue as per Physical Therapy Plan of care untilpatient is [facility]. Objective 10/05/22 0942 General Family/Caregiver Present No PT Time Calculation PT Start Time 0942 PT Stop Time 1012 PT Time Calculation (min) 30 min Precautions Medical Precautions Fall Risk Safety Interventions Call miller within reach;Gait belt LLE Weight Bearing Status As Tolerated Pain Assessment Pain Assessment 0-10 Pain Score 6 Pain Location Knee Pain Orientation Left;Proximal Pain Descriptors Aching Cognition Arousal/Alertness Appropriate responses to stimuli Orientation Level Oriented X4 Following Commands Follows all commands and directions without difficulty Cognition Comments Patient cooperative and pleasant throughout treatment. Static Sitting Balance Static Sitting-Level of Assistance Setup or clean-up assistance Dynamic Sitting Balance Dynamic Sitting-Level of Assistance Setup or clean-up assistance Static Standing Balance Static Standing-Level of Assistance Setup or clean-up assistance Dynamic Standing Balance Dynamic Standing-Level of Assistance Setup or clean-up assistance Bed Mobility Sitting to Lying Assistance Contact guard Lying to Sitting Assistance Contact guard Bed Mobility Comments VCs for walker placement Transfers Sit to Stand Assistance Contact guard Chair/Bed to Chair/Bed Transfer Assistance Contact guard Toilet Transfer Assistance Contact guard Transfer Comments max assist for hygiene Ambulation Walking Assistance Contact guard;Minimal verbal cues Device Rolling walker Distance Ambulated (ft) 30 Comments steady step to gait AROM LLE (degrees) L Knee Flexion 0-140 5-60 (in sitting) Procedures Procedures Gait Training;Therapeutic Activity Gait Training Gait Training Time Entry 15 Gait Training Activity 1 gait training Therapeutic Activity Therapeutic Activity Time Entry 15 Therapeutic Activity 1 bed mobility Therapeutic Activity 2 transfer training Therapeutic Activity 3 toileting PT Assessment Prognosis Good Evaluation/Treatment Tolerance Patient tolerated treatment well Medical Staff Made Aware Yes Comments RN aware of treatment and cleared by RN prior to seeing Plan PT Plan Skilled PT PT Discharge Recommendations nursing home facility placement Goals/Education Encounter Problems Encounter Problems (Active) Template: Physical Therapy Problem: PT Short Term Goals Dates: Start: 10/02/22 Goal: Pt will transfer with SBA. Dates: Start: 10/02/22 Expected End: 10/04/22 Outcomes Date/Time User Outcome 10/05/22 1055 Amanda Gorman PTA Progressing Goal: Pt will ambulate 150 ft. with wheeled walker and SBA Dates: Start: 10/02/22 Expected End: 10/04/22 Outcomes Date/Time User Outcome 10/05/22 1055 Amanda Gorman PTA Progressing Goal: Pt will demo good understanding of HEP protocol Dates: Start: 10/02/22 Expected End: 10/04/22 Outcomes Date/Time User Outcome 10/05/22 1055 Amanda Gorman PTA Progressing Goal: Pt will ascend/descend steps with CGA and LRAD Dates: Start: 10/02/22 Expected End: 10/04/22 Outcomes Date/Time User Outcome 10/04/222149 Jn Guillory RN Progressing Encounter Problems (Resolved) There are no resolved problems. Education Documentation Home Exercise Program, taught by Amanda Gorman PTA at 10/05/2022 10:56 AM. Learner: Patient Readiness: Acceptance Method: Explanation, Demonstration Response: Verbalizes Understanding, Demonstrated Understanding Mobility Training, taught by Amanda Gorman PTA at 10/05/2022 10:56 AM. Learner: Patient Readiness: Acceptance Method: Explanation, Demonstration Response: Verbalizes Understanding, Demonstrated Understanding Explain call button use, taught by Amanda Gorman PTA at 10/05/2022 10:56 AM. Learner: Patient Readiness: Acceptance Method: Explanation, Demonstration Response: Verbalizes Understanding, Demonstrated Understanding Teach fall prevention measures, taught by Amanda Gorman PTA at 10/05/2022 10:56 AM. Learner: Patient Readiness: Acceptance Method: Explanation, Demonstration Response: Verbalizes Understanding, Demonstrated Understanding Education Comments No comments found. * Pj Sparrow MD - 10/05/2022 6:29 AM EST [facility] - PROGRESS NOTE Patient Name : Castillo Graham Patient : 1955 Patient Admit Date : 10/02/2022 Admission Diagnosis : Postoperative Medical Comanagement Provider Name : Pj Sparrow MD Date Of Service : 10/05/22 IMPRESSION AND PLAN : Left Knee Arthroplasty Failure: Patient is status/post left knee arthroplasty revision by Dr. Barber on 10/02/22. EBL = 50 mLs. I have seen the patient personally today and reviewed available lab results on this patient. Currently awaiting SNF placement. Deep Venous Thrombosis Prophylaxis: DVT prophylaxis is recommended as per current ACCP guidelines. Due to additional risk factors, including morbid obesity, consideration should be given to the use of Lovenox, Arixtra, or novel oral anticoagulant. This decision will ultimately be left to the discretion of the primary surgical service per protocol. Xarelto currently ordered by the Orthopedic service. Obstructive sleep apnea. Sleep apnea protocol ordered including BiPAP/CPAP therapy we will monitor patient's continuous pulse oximetry closely. - Patient denied respiratory symptoms on rounds 10/05. Patient remains at elevated risk for postoperative respiratory complications including hypoxemia and hypoventilation. Will continue monitoring on the [facility] JEREMY protocol. Respiratory Therapy to continue to encourage incentive spirometer use and to wean oxygen as tolerated. Congestive heart failure. Remains compensated on rounds 10/05. Denied cardiopulmonary symptoms. Exam stable. Patient takes midodrine. Have adjusted her as needed clonidine parameters.. We will continue to monitor on telemetry. Chronic kidney disease. Creatinine 0.89 on 10/04.. This is WNL and stable. Baseline creatinine 1.04. Recommend the avoidance of hypotension, hypovolemia, and potentially nephrotoxic medications including NSAIDs and Lara 2 inhibitors. Continue to monitor U.O. while hospitalized. Oral intake slowly increasing. Diabetes mellitus type 2. We will follow patient's blood glucose closely postoperatively. Sliding scale insulin has been ordered. - Sugars reviewed on rounds 10/05. Last reading noted at 125 on 10/04. Continue to monitor on present medications. Asthma. We will order breathing treatments as needed as well as patient's home inhaler regimen. We will monitor respiratory status closely. - Patient denied respiratory symptoms on rounds 10/05. No wheezes on exam. Continue to monitor on present medications. GERD. We will continue PPI while here. Neuropathy. We will continue Topamax and gabapentin as at home. Morbid obesity with BMI 43. This puts patient at increased risk for respiratory complications postoperatively. We will monitor on telemetry and with pulse ox. This patient will be considered acceptable for discharge from a medical perspective if the following criteria are met . . . 1. Oxygen Saturations > 90% on Room Air 2. Able to void without difficulty 3. Meets Physical Therapy goals for discharge 4. Passing Flatus without nausea vomiting or abdominal distention 5. Cleared for discharge by surgeon 6. Discharge medication reconciliation completed, defer post discharge management of anticoagulants, DVT prophylaxis, NSAIDs, opiates, and antibiotics to surgical service. Subjective The patient was seen in their room on the inpatient unit. They were resting quietly prior to visit and appeared comfortable during the visit. No new complaints this morning. REVIEW OF SYSTEMS Pain Control: Mild surgical site pain, adequately controlled Cardiovascular: Denied chest pain or chest pressure Respiratory: Denies dyspnea or cough Gastrointestinal: Denied abdominal pain, denied nausea or vomiting, reports passing flatus since surgery Genitourinary: Denies dysuria, urine output as noted Neurological: Denied acute neurological deficits or acute changes in strength or sensation Musculoskeletal: Defer to primary service VITALS : Visit Vitals BP (!) 145/81 Pulse 81 Temp 36.8 C (98.2 F) Resp 18 Ht 1.6 m (63 ) Wt 110 kg (242 lb 11.6 oz) SpO2 97% BMI 43.00 kg/m Smoking Status Former BSA 2.1 m PHYSICAL EXAM : General: Responds appropriately; no apparent distress Cardiovascular: Regular rate and rhythm; no murmur, rub, or gallop Respiratory: Clear to auscultation; normal respiratory effort Abdomen: Soft, non-distended; non-tender; bowel sounds normoactive Skin: No rashes Neurological: Alert and oriented x 3; appropriate mood and affect; follows commands/requests appropriately Musculoskeletal: Defer to primary service RESULTS : LABS Lab Results Component Value Date NA 141 10/04/2022 K 4.0 10/04/2022 CL 107 10/04/2022 CO2 26 10/04/2022 GLUCOSE 125 (H) 10/04/2022 BUN 14 10/04/2022 CREATININE 0.89 10/04/2022 CALCIUM 9.3 10/04/2022 EGFR 71 10/04/2022 Lab Results Component Value Date WBC 9.2 10/04/2022 RBC 4.40 10/04/2022 HGB 12.2 10/04/2022 HCT 39.6 10/04/2022 MCV 90.0 10/04/2022 MCHC 30.8 10/04/2022 RDW 13.9 10/04/2022 PLT 194 10/04/2022 MPV 10.3 10/04/2022 DIFF Lab Results Component Value Date LYMPHOPCT 16.1 (L) 09/19/2022 NEUTROABS 5.58 09/19/2022 LYMPHSABS 1.27 09/19/2022 MONOABS 0.59 09/19/2022 EOSABS 0.36 09/19/2022 BASOSABS 0.07 09/19/2022 IMMGRANABS 0.03 09/19/2022 * Jn Guillory RN - 10/04/2022 9:50 PM EST Goals: Identify possible barriers to meeting goals/advancing plan of care: none Stability of the patient: Moderately Stable - Low risk of patient condition declining or worsening End of Shift Summary: a/o x4, complies w care, pain controlled w oral meds, awaits snf precert, needs met, call light in reach, cont to mntr. * Beckie Sunshine, PT - 10/04/2022 3:05 PM EST 10/04/22 1505 General Missed Time Reason Other (Comment) (Patient cleared per RN for PT treatment session. Patient received in room 226. Patient sound asleep and not awakened by call of name. Plan to re-attempt later as schedule allows.) Family/Caregiver Present No PT Time Calculation PT Start Time 1505 PT Stop Time 1505 PT Time Calculation (min) 0 min * Nik Cates RN - 10/04/2022 12:36 PM EST OB call to [facility]. Per Yaz: admission is not in on the weekends. NN met with the pt at bedside. Pt states her son will not be transporting her to the facility. She states she have coverage through her insurance company. She states she has set up transport for Thursday at 1200. NN advised pt that precert has not been approved and that facility admissions is not in on the weekend to check the status of precert. Pt states she would like an update Thursday morning. Ifprecert is not back then she will re-schedule transport. PATIENT HAS MADE ARRANGEMENTS WITH HER INSURANCE FOR TRANSPORT. CURRENTLY Thursday AT NOON. PLEASE UPDATE HER Thursday WITH PRECERT STATUS SO SHE CAN CHANGE TRANSPORT TIME IF NEEDED. * Shawn Rinaldi RN - 10/04/2022 12:24 PM EST Problem: Sensory: Goal: Pain level will improve or be tolerable Outcome: Progressing Problem: Mobility Goal: Patient will ambulate Outcome: Progressing Problem: Falls: Goal: Patient will not fall or injure themselves during hospitalization. Outcome: Progressing Goals: Identify possible barriers to meeting goals/advancing plan of care: Stability of the patient: Moderately Stable - Low risk of patient condition declining or worsening End of Shift Summary: * JAVED Franco - 10/04/2022 10:14 AM EST [facility] Orth[facility]edic Surgery Progress Note 2 Days Post-Op: * Left knee revision arthroplasty poly exchange LOS: 2 days Subjective: Patient doing well. States that pain is tolerable with current regimen. Tolerating dietwithout nausea or vomiting. Objective: Last Recorded Vitals: Blood pressure (!) 162/80, pulse 81, temperature 36.1 C (97 F), temperature source Temporal, resp. rate 18, height 1.6 m (63 ), weight 110 kg (242 lb 11.6 oz), SpO2 94 %. Gen: comfortable, NAD Focused Musculoskeletal Exam: Surgical incision/dressing clean, dry, and intact. No drainage or swelling. Neurovascularly intact in the operative extremity. LABS: Lab Results Component Value Date WBC 9.2 10/04/2022 HGB 12.2 10/04/2022 HCT 39.6 10/04/2022 MCV 90.0 10/04/2022 PLT 194 10/04/2022 Lab Results Component Value Date GLUCOSE 94 10/04/2022 CALCIUM 9.3 10/04/2022 NA 141 10/04/2022 K 4.0 10/04/2022 CO2 26 10/04/2022 CL 107 10/04/2022 BUN 14 10/04/2022 CREATININE 0.89 10/04/2022 No results found for: INR, PROTIME No results found for: PTT Assessment & Plan 67 y.o. female 2 Days Post-Op status post * Left knee revision arthroplasty poly exchange. - WBAT on the operative extremity - Xarelto 10 mg once daily with food x30 days for DVT ppx. Pt has allergy to ASA - PT -SNF may remove prevena incisional wound vac in 1 week - Follow-up in clinic in 2-3 weeks for staple removal - Plan for discharge to Subacute Rehab Facility ([facility] or ECF) when cleared by PT and medically stable * Beckie Sunshine, PT - 10/04/2022 9:50 AM EST [facility] Physical Therapy Treatment PT Discharge Recommendations: nursing home facility placement DISPOSITION/PLAN: PT is recommending therapy 2-3 hours/day; 5 days/week with 24/ supervision and support until highest LOF is achieved. Reason for current recommendation based on assessment: Based on pt's current level of function, pt is not safe to return home at this time and will need skilled PT interventions to regain strength and mobility. Recommendation is for SNF at d/c to address impairments, progress mobility, lower fall risk, reduce caregiver burden, and return to prior level of function. Distance Ambulated (ft): 30 Device: Rolling walker L Knee Flexion 0-140: L knee AAROM 0-55 Fall prevention education provided including use of call light in hospital, use of appropriate assistive device, safe mobility techniques, and safety measures at home. Continue PT as per POC. Rehab progress note: Patient cleared per RN for PT session. Patient initially not receptive to therapy stating, I just got up and used the bathroom and got settled in the bed. This Physical Therapist encouraged patient to work on TKA exercises and ambulation instructing the patient that it is important and in her best interest for getting good results from her knee surgery Patient received recumbent in room 226 at [facility] Please refer to OBJECTIVE assessment, TREATMENT and EDUCATION sections of this PT treatment note for details of overall patient mobility assessment Patient need much encouragement and motivation. She is self limiting with her exercises and ambulation. With specific instructions for performance of bed mobility/ transfers/ gait patient able to perform skills with verbal and tactile cues per Physical Therapist Patient positioned recumbent end of therapy session with call light and phone in reach. SCDS to BLES and ice to the LLE knee. Instruction and reinforced positioning LLE into full knee extension PPE: Physical Therapy wore surgical mask and gloves for this encounter Subjective Patient reports pain at 10/10 in the LLE knee and this Physical Therapist contacted RN to medicate patient and it was time for her oxycodone. Patient states, I cannot do that yet or I cannot do it with instruction and encouragement to bed mobility tasks and exercises to TKA rehab programing. Arabella infante needing much encouragement and motivation. Objective 10/04/22 0950 General Family/Caregiver Present No PT Time Calculation PT Start Time 0950 PT Stop Time 1028 PT Time Calculation (min) 38 min Precautions Medical Precautions Fall Risk Safety Interventions ID band on;Call miller within reach;Side rails up x1;Gait belt LLE Weight Bearing Status As Tolerated Oxygen Therapy Pulse Oximetry Type Continuous Pulse Oximetry Location Left;Finger Patient Activity Walking Oxygen Therapy None (Room air) Pain Assessment Pain Assessment 0-10 Pain Score 10 - Worst possible pain Pain Type Acute pain;Surgical pain Pain Location Knee Pain Orientation Left Pain Descriptors Aching Pain Interventions Cold applied;Repositioned;Rest Cognition Arousal/Alertness Appropriate responses to stimuli Orientation Level Oriented X4 Following Commands Follows all commands and directions without difficulty Cognition Comments Patient very much has a I cannot do it attitude Activity Tolerance Endurance Tolerates 30 min exercise with multiple rests Static Sitting Balance Static Sitting-Level of Assistance Close supervision Static Sitting-Balance Support Right upper extremity supported;Feet supported Dynamic Sitting Balance Dynamic Sitting-Level of Assistance Contact guard Dynamic Sitting-Balance Forward lean (for sit<>stand transfers) Dynamic Sitting-Balance Support Right upper extremity supported;Left upper extremity supported;Feetsupported Static Standing Balance Static Standing-Level of Assistance Contact guard Static Standing-Balance Support Right upper extremity supported;Left upper extremity supported (BUE support on FWW) Dynamic Standing Balance Dynamic Standing-Level of Assistance Contact guard Dynamic Standing-Balance Support Right upper extremity supported;Left upper extremity supported (BUE support on FWW) Bed Mobility Sitting to Lying Assistance Minimum assistance Lying to Sitting Assistance Minimum assistance Bed Mobility Comments Patient is self limiting and need encouragment and motivation to work on technique for bed moblity tasks to promote more independence with the activity Transfers Sit to Stand Assistance Contact guard;Minimum assistance;Moderate verbal cues Chair/Bed to Chair/Bed Transfer Assistance Contact guard;Minimum assistance;Moderate verbal cues Toilet Transfer Assistance Contact guard;Minimum assistance;Moderate verbal cues (using FWW and patient stated he was unable to perform her own morgan care and would not attempt or try) Ambulation Walking Assistance Contact guard;Moderate verbal cues Device Rolling walker Distance Ambulated (ft) 30 Comments slowed jasbir; short step length in step to gait pattern and instruction to stay within the FWW/gait belt used RUE Assessment RUE Assessment Within Functional Limits LUE Assessment LUE Assessment Within Functional Limits Strength RLE R Ankle Dorsiflexion 4+/5 R Ankle Plantar Flexion 4+/5 AROM LLE (degrees) L Knee Flexion 0-140 L knee AAROM 0-55 Strength LLE L Ankle Dorsiflexion 4/5 L Ankle Plantar Flexion 4/5 L Knee Extension 2/5 Procedures Procedures Gait Training;Therapeutic Activity;Therapeutic Exercise Gait Training Gait Training Time Entry 12 Gait Training Activity 1 gait training with FWFW/gait belt and much encouragement 30 feet in step to gait pattern Therapeutic Activity Therapeutic Activity Time Entry 12 Therapeutic Activity 1 gait training to bathroom using FWW/instruction for safety with transitioning movement using FWW to turn to sit onto the toilet/staying within FWW Therapeutic Activity 2 patient reporting that cannot manage her own morgan care and needed complete assistance Therapeutic Activity 3 gait to hand santitizer to stand and wash hands with CGA Therapeutic Exercise Therapeutic Exercise Time Entry 14 Therapeutic Exercise Activity 1 instruction to VREs and verbal and tactile cues for correct performance Therapeutic Exercise Activity 2 AAROM for knee flexion supine and sitting Therapeutic Exercise Activity 3 SAQ/SLR and hip abduction for almost complete AAROM with encouragment 10 reps PT Assessment PT Assessment/ Barriers to discharge Decreased strength;Decreased range of motion;Impaired gait;Decreased mobility;Decreased safety awareness;Pain;Impaired balance;Decreased endurance;Impaired judgement Prognosis Good Evaluation/Treatment Tolerance Patient limited by pain Medical Staff Made Aware Yes Comments cleared per MARIBELL Escobar and update to MARIBELL Escobar that patient needs pain medication and he medicated patient during PT session. Patient reporting the BRI wrap on her LLE was limiting her ability toperform exercises and RN removed BRI wrap per physician order Plan Treatment/Interventions ADL retraining;Functional transfer training;LE strengthening/ROM;Endurance training;Patient/family training;Equipment eval/education;Bed mobility;Gait training;Balance training;Compensatory technique education PT Plan Skilled PT PT Frequency 7 days per week PT Duration of Sessions PRN PT Treatments per day 1-2 times per day PT Discharge Recommendations nursing home facility placement Goals/Education Encounter Problems Encounter Problems (Active) Template: Physical Therapy Problem: PT Short Term Goals Dates: Start: 10/02/22 Goal: Pt will transfer with SBA. Dates: Start: 10/02/22 Expected End: 10/04/22 Outcomes Date/Time User Outcome 10/04/22 172 Beckie Sunshine PT Progressing Goal: Pt will ambulate 150 ft. with wheeled walker and SBA Dates: Start: 10/02/22 Expected End: 10/04/22 Outcomes Date/Time User Outcome 10/04/22 1729 Beckie Sunshine PT Progressing Goal: Pt will demo good understanding of HEP protocol Dates: Start: 10/02/22 Expected End: 10/04/22 Outcomes Date/Time User Outcome 10/04/221728 Beckie Sunshine PT Progressing Goal: Pt will ascend/descend steps with CGA and LRAD Dates: Start: 10/02/22 Expected End: 10/04/22 Outcomes Date/Time User Outcome 10/04/221728 Beckie Sunshine PT Progressing Encounter Problems (Resolved) There are no resolved problems. Education Documentation Home Exercise Program, taught by Beckei Sunshine PT at 10/04/2022 9:50 AM. Learner: Family, Patient Readiness: Acceptance Method: Explanation, Demonstration, Handout Response: Verbalizes Understanding, Demonstrated Understanding, Needs Reinforcement, Able to teach back information Comment: gait belt used; instruction to use of FWWinstruction to VREs and reinforcment to TKA rehabprograming with AAROM for flexion/ hip abduction; SLR; SAQ. Patient needed encouragement and motivation. All needs in reach end of session/call light and phone Mobility Training, taught by Beckie Sunshine PT at 10/04/2022 9:50 AM. Learner: Family, Patient Readiness: Acceptance Method: Explanation, Demonstration, Handout Response: Verbalizes Understanding, Demonstrated Understanding, Needs Reinforcement, Able to teach back information Comment: gait belt used; instruction to use of FWWinstruction to VREs and reinforcment to TKA rehabprograming with AAROM for flexion/ hip abduction; SLR; SAQ. Patient needed encouragement and motivation. All needs in reach end of session/call light and phone Explain call button use, taught by Beckie Sunshine PT at 10/04/2022 9:50 AM. Learner: Family, Patient Readiness: Acceptance Method: Explanation, Demonstration, Handout Response: Verbalizes Understanding, Demonstrated Understanding, Needs Reinforcement, Able to teach back information Comment: gait belt used; instruction to use of FWWinstruction to VREs and reinforcment to TKA rehabprograming with AAROM for flexion/ hip abduction; SLR; SAQ. Patient needed encouragement and motivation. All needs in reach end of session/call light and phone Teach fall prevention measures, taught by Beckie Sunshine PT at 10/04/2022 9:50 AM. Learner: Family, Patient Readiness: Acceptance Method: Explanation, Demonstration, Handout Response: Verbalizes Understanding, Demonstrated Understanding, Needs Reinforcement, Able to teach back information Comment: gait belt used; instruction to use of FWWinstruction to VREs and reinforcment to TKA rehabprograming with AAROM for flexion/ hip abduction; SLR; SAQ. Patient need encouragement and motivation. All needs in reach end of session/call light and phone Education Comments No comments found. 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 Barber on 10/02/22. EBL = 50 mLs. I have seen the patient personally today and reviewed available lab results on this patient. Deep Venous Thrombosis Prophylaxis: DVT prophylaxis is recommended as per current ACCP guidelines. Due to additional risk factors, including morbid obesity, consideration should be given to the use of Lovenox, Arixtra, or novel oral anticoagulant. This decision will ultimately be left to the discretion of the primary surgical service per protocol. Xarelto currently ordered by the Orthopedic service. Obstructive sleep apnea. Sleep apnea protocol ordered including BiPAP/CPAP therapy we will monitor patient's continuous pulse oximetry closely. - Patient denied respiratory symptoms on rounds 10/04. Patient remains at elevated risk for postoperative respiratory complications including hypoxemia and hypoventilation. Will continue monitoring on the [facility] JEREMY protocol. Respiratory Therapy to continue to encourage incentive spirometer use and to wean oxygen as tolerated. Congestive heart failure. Remains compensated on rounds 10/04. Denied cardiopulmonary symptoms. Exam stable. Patient takes midodrine. Blood pressure 152/83 on 10/04. Have adjusted her as needed clonidine parameters.. We will continue to monitor on telemetry. Chronic kidney disease. Creatinine 0.89 on 10/04.. This is WNL and stable. Baseline creatinine 1.04. Please avoid nephrotoxins including NSAIDs and Lara 2 inhibitors, avoid hypotension and/or hypovolemia. Continue to monitor U.O. while hospitalized. Diabetes mellitus type 2. We will follow patient's blood glucose closely postoperatively. Sliding scale insulin has been ordered. - Sugars reviewed. Last reading noted at 93 on 10/04. Continue to monitor on present medications. Asthma. We will order breathing treatments as needed as well as patient's home inhaler regimen. We will monitor respiratory status closely. - Patient denied respiratory symptoms on rounds 10/04. No wheezes on exam. Continue to monitor on present medications. GERD. We will continue PPI while here. Neuropathy. We will continue Topamax and gabapentin as at home. Morbid obesity with BMI 43. This puts patient at increased risk for respiratory complications postoperatively. We will monitor on telemetry and with pulse ox. This patient will be considered acceptable for discharge from a medical perspective if the following criteria are met . . . 1. Oxygen Saturations > 90% on Room Air 2. Able to void without difficulty 3. Meets Physical Therapy goals for discharge 4. Passing Flatus without nausea vomiting or abdominal distention 5. Cleared for discharge by surgeon 6. Discharge medication reconciliation completed, defer post discharge management of anticoagulants, DVT prophylaxis, NSAIDs, opiates, and antibiotics to surgical service. Subjective The patient was seen in their room on the inpatient unit. They were resting quietly prior to visit and appeared comfortable during the visit. No new complaints this morning. REVIEW OF SYSTEMS Cardiovascular: Denied chest pain or chest pressure Respiratory: Denies dyspnea or cough Gastrointestinal: Denied abdominal pain, denied nausea or vomiting, reports passing flatus since surgery Genitourinary: Denies dysuria, urine output as noted Neurological: Denied acute neurological deficits or acute changes in strength or sensation Musculoskeletal: Defer to primary service VITALS : Visit Vitals BP (!) 152/83 Pulse 89 Temp 36.6 C (97.9 F) Resp 18 Ht 1.6 m (63 ) Wt 110 kg (242 lb 11.6 oz) SpO2 96% BMI 43.00 kg/m Smoking Status Former BSA 2.1 m PHYSICAL EXAM : General: Responds appropriately; no apparent distress Cardiovascular: Regular rate and rhythm; no murmur, rub, or gallop Respiratory: Clear to auscultation; normal respiratory effort Abdomen: Soft, non-distended; non-tender; bowel sounds normoactive Skin: No rashes Neurological: Alert and oriented x 3; appropriate mood and affect; follows commands/requests appropriately Musculoskeletal: Defer to primary service RESULTS : LABS Lab Results Component Value Date NA 141 10/04/2022 K 4.0 10/04/2022 CL 107 10/04/2022 CO2 26 10/04/2022 GLUCOSE 93 10/04/2022 BUN 14 10/04/2022 CREATININE 0.89 10/04/2022 CALCIUM 9.3 10/04/2022 EGFR 71 10/04/2022 Lab Results Component Value Date WBC 9.2 10/04/2022 RBC 4.40 10/04/2022 HGB 12.2 10/04/2022 HCT 39.6 10/04/2022 MCV 90.0 10/04/2022 MCHC 30.8 10/04/2022 RDW 13.9 10/04/2022 PLT 194 10/04/2022 MPV 10.3 10/04/2022 DIFF Lab Results Component Value Date LYMPHOPCT 16.1 (L) 09/19/2022 NEUTROABS 5.58 09/19/2022 LYMPHSABS 1.27 09/19/2022 MONOABS 0.59 09/19/2022 EOSABS 0.36 09/19/2022 BASOSABS 0.07 09/19/2022 IMMGRANABS 0.03 09/19/2022 * Gloria Mohan RN - 10/03/2022 10:03 PM EST Problem: Sensory: Goal: Pain level will improve or be tolerable Outcome: Progressing Problem: Mobility Goal: Patient will ambulate Outcome: Progressing Problem: Falls: Goal: Patient will not fall or injure themselves during hospitalization. Outcome: Progressing Problem: Cognitive: Goal: Knowledge of Transition Instructions will improve Outcome: Progressing Goals: Identify possible barriers to meeting goals/advancing plan of care: Pt to D/C home Stability of the patient: Moderately Stable - Low risk of patient condition declining or worsening End of Shift Summary: Pt to D/C home * Debbie Kapadia RN - 10/03/2022 6:11 PM EST HENS COMPLETE to [facility] * Amanda Gorman PTA - 10/03/2022 3:07 PM EST Patient sleeping soundly and did not rouse to name of knock. Will attempt again in am. * Debbie Kapadia RN - 10/03/2022 2:28 PM EST Zunilda from [facility] will accept the patient pending precert and patient updated * Meghann Bryan - 10/03/2022 12:08 PM EST 10/03/22 1208 Clinical Encounter Type Visited With Patient Time Spent 15 Minutes Type of Contact Introduction SPIRITUAL CARE ASSESSMENT Spiritual Care Assessment: Pt appropriate and coping supported by family and melinda expressed hope Spiritual Intervention: Active listening Hospitality provided [place] given Outcome: Pt shared feeling and hope Plan: PC will return at pt/family request. * Debbie Kapadia RN - 10/03/2022 11:36 AM EST Into see the patient and updated that [facility] is reviewing the referral. * Debbie Kapadia RN - 10/03/2022 10:36 AM EST [facility] admissions called back the they do not have beds and will not until mid next week. PABLO ODONNELL Rep. Reports the patient just told her to tell me when she delivered her leg pumps of a [facility] facility [facility] in [place] and called [phone] spoke to Zunilda and she does have beds and referral faxed to her at [phone]. * Debbie Kapadia RN - 10/03/2022 9:50 AM EST Rosetta from [facility] has no beds Patient would like a referral to [facility] in [place] and called them [phone] Admissions in a meeting but they would like the referral sent to [facility] of [phone] and sent. Patient will look for a 3rd choice if needed. * Amanda Gorman PTA - 10/03/2022 8:55 AM EST [facility] Physical Therapy Treatment PT Discharge Recommendations: nursing home facility placement Distance Ambulated (ft): 30 Device: Rolling walker L Knee Flexion 0-140: 0-31 Fall prevention education provided including use of call light in hospital, use of appropriate assistive device, safe mobility techniques, and safety measures at home. Continue PT as per POC. Subjective Patient in bed upon arrival to room. Patient reluctantly agreeable. Mobility noted below. All questions answered and needs met at this time. Continue as per Physical Therapy Plan of care until patient is discharged from [facility]. Objective 10/03/22 0855 General Family/Caregiver Present No PT Time Calculation PT Start Time 0855 PT Stop Time 0934 PT Time Calculation (min) 39 min Precautions Medical Precautions Fall Risk Safety Interventions Call miller within reach;Gait belt LLE Weight Bearing Status As Tolerated Pain Assessment Pain Assessment 0-10 Pain Score 3 Pain Location Knee Pain Orientation Left Pain Descriptors Aching Cognition Arousal/Alertness Appropriate responses to stimuli Orientation Level Oriented X4 Following Commands Follows all commands and directions without difficulty Bed Mobility Sitting to Lying Assistance Minimum assistance (assist with left LE) Lying to Sitting Assistance Minimum assistance;Minimal verbal cues (assist with left LE) Bed Mobility Comments Pt very particular regarding how she is to transfer Transfers Sit to Stand Assistance Contact guard;Minimal verbal cues Ambulation Walking Assistance Contact guard;Minimal verbal cues Device Rolling walker Distance Ambulated (ft) 30 AROM LLE (degrees) L Knee Flexion 0-140 0-31 Procedures Procedures Gait Training;Therapeutic Activity;Therapeutic Exercise Gait Training Gait Training Time Entry 15 Gait Training Activity 1 gait training Therapeutic Activity Therapeutic Activity Time Entry 10 Therapeutic Activity 1 bed mobility Therapeutic Activity 2 transfers Therapeutic Activity 3 toileting Therapeutic Exercise Therapeutic Exercise Time Entry 13 Therapeutic Exercise Activity 1 HEP (SLR and heel slide) x 2 (pt unable to tolerate 2/2 pain) PT Assessment Prognosis Good Evaluation/Treatment Tolerance Patient tolerated treatment well Medical Staff Made Aware Yes Comments RN updated after treatment Plan PT Plan Skilled PT PT Frequency 7 days per week PT Duration of Sessions PRN PT Treatments per day 1-2 times per day PT Discharge Recommendations nursing home facility placement Goals/Education Encounter Problems Encounter Problems (Active) Template: Physical Therapy Problem: PT Short Term Goals Dates: Start: 10/02/22 Goal: Pt will transfer with SBA. Dates: Start: 10/02/22 Expected End: 10/04/22 Outcomes Date/Time User Outcome 10/03/22 1003 Amanda Gorman PTA Progressing Goal: Pt will ambulate 150 ft. with wheeled walker and SBA Dates: Start: 10/02/22 Expected End: 10/04/22 Outcomes Date/Time User Outcome 10/03/22 1003 Amanda Gorman PTA Progressing Goal: Pt will demo good understanding of HEP protocol Dates: Start: 10/02/22 Expected End: 10/04/22 Outcomes Date/Time User Outcome 10/03/22 1003 Amanda Gorman PTA Progressing Goal: Pt will ascend/descend steps with CGA and LRAD Dates: Start: 10/02/22 Expected End: 10/04/22 Encounter Problems (Resolved) There are no resolved problems. Education Documentation Home Exercise Program, taught by Amanda Gorman PTA at 10/03/2022 10:03 AM. Learner: Patient Readiness: Acceptance Method: Explanation, Demonstration Response: Needs Reinforcement, Verbalizes Understanding Mobility Training, taught by Amanda Gorman PTA at 10/03/2022 10:03 AM. Learner: Patient Readiness: Acceptance Method: Explanation, Demonstration Response: Needs Reinforcement, Verbalizes Understanding Explain call button use, taught by Amanda Gorman PTA at 10/03/2022 10:03 AM. Learner: Patient Readiness: Acceptance Method: Explanation, Demonstration Response: Needs Reinforcement, Verbalizes Understanding Teach fall prevention measures, taught by Amanda Gorman PTA at 10/03/2022 10:03 AM. Learner: Patient Readiness: Acceptance Method: Explanation, Demonstration Response: Needs Reinforcement, Verbalizes Understanding Education Comments No comments found. * Anusha Sung DO - 10/03/2022 8:33 AM EST [facility] - PROGRESS NOTE Patient Name : Castillo Graham Patient : 1955 Patient Admit Date : 10/02/2022 Admission Diagnosis : Postoperative Medical Comanagement Provider Name : Anusha Sung DO Date Of Service : 10/03/22 IMPRESSION AND PLAN : Patient is status post left knee revision. Postop day 1. DVT prophylaxis will be ordered by the primary surgical team. Please follow the most recent ACCP guidelines. I have seen the patient personally today and reviewed any available lab results on this patient. I reviewed all of the home medications and I ordered the postoperative pain regimen which will include IV Dilaudid. The patient will be on scheduled Tylenol, with as needed oxycodone and Flexeril. A medical consult has been ordered by the surgeon for perioperative management of the patient's chronic medical conditions including the following . . . Obstructive sleep apnea. No acute respiratory issues overnight. Sleep apnea protocol ordered including BiPAP/CPAP therapy we will monitor patient's continuous pulse oximetry closely. Morbid obesity with BMI 43. This puts patient at increased risk for respiratory complications postoperatively. We will monitor on telemetry and with pulse ox. Chronic kidney disease. Creatinine 0.97 this morning. This is stable. Baseline creatinine 1.04. Please avoid nephrotoxins including NSAIDs and Lara 2 inhibitors, avoid hypotension and/or hypovolemia. We will monitor serum creatinine while here. Asthma. We will order breathing treatments as needed as well as patient's home inhaler regimen. We will monitor respiratory status closely. Congestive heart failure. Patient takes midodrine. Blood pressure 157/78 this morning. This is acceptable. We will continue this while here patient appears euvolemic and well compensated at this time. We will monitor her closely on telemetry. GERD. We will continue PPI while here. Diabetes mellitus type 2. Blood sugar 132 this morning. We will follow patient's blood glucose closely postoperatively. Sliding scale insulin has been ordered. Neuropathy. We will continue Topamax and gabapentin as at home. This patient will be considered acceptable for discharge from a medical perspective if the following criteria are met . . . 1. Oxygen Saturations > 90% on Room Air 2. Able to void without difficulty 3. Meets Physical Therapy goals for discharge 4. Passing Flatus without nausea vomiting or abdominal distention 5. Cleared for discharge by surgeon 6. Discharge medication reconciliation completed, defer post discharge management of anticoagulants, DVT prophylaxis, NSAIDs, opiates, and antibiotics to surgical service. Subjective Patient doing well this morning with no reported issues overnight. Patient denies chest pain or shortness of breath. The patient denies nausea or vomiting. The patient states her pain is well controlled with current regimen. She reports passing flatus and she is urinating without difficulty. REVIEW OF SYSTEMS Cardiovascular: Denies chest pain Respiratory: Denies shortness of breath or cough Gastrointestinal: Denies abdominal pain or nausea/vomiting Genitourinary: Denies urinary retention or incomplete voiding VITALS : Visit Vitals BP (!) 157/78 (Patient Position: Lying) Pulse 87 Temp 36.2 C (97.2 F) (Temporal) Resp 18 Ht 1.6 m (63 ) Wt 110 kg (242 lb 11.6 oz) SpO2 97% BMI 43.00 kg/m Smoking Status Former BSA 2.1 m PHYSICAL EXAM : General - No acute distress; Alert and conversational Cardiology - No tachycardia noted; No peripheral edema noted Respiratory - Clear to auscultate bilaterally; No accessory respiratory muscle use noted; No wheezing noted Abdominal - Non-tender to palpation; positive bowel sounds Musculoskeletal - No calf tenderness noted on palpation. Pain with left knee movement Psychiatric - Appropriate affect, Alert and oriented to person, place, and situation RESULTS : LABS Admission on 10/02/2022 Component Date Value SARS-COV-2 Screen 10/02/2022 Not Detected Culture, Anaerobic 10/02/2022 Culture in progress Culture, Fungus 10/02/2022 Culture in progress Culture AFB 10/02/2022 Culture in progress Fluid Culture 10/02/2022 Culture in progress Gram Stain Result 10/02/2022 No Polymorphonuclear leukocytes Gram Stain Result 10/02/2022 No Epithelial cells Gram Stain Result 10/02/2022 No organisms seen Body Fluid Source 10/02/2022 Synovial Body Fluid Clarity 10/02/2022 Hazy Body Fluid Color 10/02/2022 Yellow Body Fluid RBC 10/02/2022 5,000 Body Fluid Total Nucleat* 10/02/2022 167 Culture, Anaerobic 10/02/2022 Culture in progress Culture, Anaerobic 10/02/2022 Culture in progress Culture, Anaerobic 10/02/2022 Culture in progress Culture, Anaerobic 10/02/2022 Culture in progress Culture, Fungus 10/02/2022 Culture in progress Culture, Fungus 10/02/2022 Culture in progress Culture, Fungus 10/02/2022 Culture in progress Culture, Fungus 10/02/2022 Culture in progress Final Diagnosis 10/02/2022 Value:This result contains rich text formatting which cannot be displayed here. Gross Description 10/02/2022 Value:This result contains rich text formatting which cannot be displayed here. Disclaimer 10/02/2022 Value:This result contains rich text formatting which cannot be displayed here. Culture AFB 10/02/2022 Culture in progress Culture AFB 10/02/2022 Culture in progress Culture AFB 10/02/2022 Culture in progress Culture AFB 10/02/2022 Culture in progress Culture, Tissue 10/02/2022 Culture in progress Gram Stain Result 10/02/2022 No Polymorphonuclear leukocytes Gram Stain Result 10/02/2022 No Epithelial cells Gram Stain Result 10/02/2022 No organisms seen Culture, Tissue 10/02/2022 Culture in progress Gram Stain Result 10/02/2022 No Polymorphonuclear leukocytes Gram Stain Result 10/02/2022 No Epithelial cells Gram Stain Result 10/02/2022 No organisms seen Culture, Tissue 10/02/2022 Culture in progress Gram Stain Result 10/02/2022 No Polymorphonuclear leukocytes Gram Stain Result 10/02/2022 No Epithelial cells Gram Stain Result 10/02/2022 No organisms seen Culture, Tissue 10/02/2022 Culture in progress Gram Stain Result 10/02/2022 No Polymorphonuclear leukocytes Gram Stain Result 10/02/2022 No Epithelial cells Gram Stain Result 10/02/2022 No organisms seen Fluid Neutrophils 10/02/2022 3.0 Fluid Lymphocytes 10/02/2022 71.0 Fluid Monocytes/Macropha* 10/02/2022 17.0 Fluid Other Cells 10/02/2022 9.0 Glucose POCT 10/02/2022 120 (H) Glucose POCT 10/02/2022 78 Glucose POCT 10/02/2022 121 (H) Glucose POCT 10/02/2022 188 (H) Sodium 10/03/2022 139 Potassium 10/03/2022 4.6 Chloride 10/03/2022 105 CO2 10/03/2022 25 Anion Gap 10/03/2022 9 Glucose 10/03/2022 132 (H) BUN 10/03/2022 19 Creatinine 10/03/2022 0.97 eGFR 10/03/2022 64 BUN/Creatinine Ratio 10/03/2022 19.6 Calcium 10/03/2022 9.0 WBC 10/03/2022 10.2 RBC 10/03/2022 4.52 Hemoglobin 10/03/2022 13.0 Hematocrit 10/03/2022 40.6 MCV 10/03/2022 89.8 MCH 10/03/2022 28.8 MCHC 10/03/2022 32.0 RDW 10/03/2022 13.9 Platelets 10/03/2022 243 MPV 10/03/2022 10.0 Glucose POCT 10/03/2022 115 (H) IMAGING * Carlos Gomez DO - 10/03/2022 6:05 AM EST [facility] Orth[facility] Progress Note 1 Day Post-Op: * Left knee revision arthroplasty poly exchange LOS: 1 day Subjective: Patient doing well. States that pain is tolerable with current regimen. Tolerating dietwithout nausea or vomiting. 30 ft with PT. Objective: Last Recorded Vitals: Blood pressure (!) 157/78, pulse 87, temperature 36.2 C (97.2 F), resp. rate 18, height 1.6 m (63 ), weight 110 kg (242 lb 11.6 oz), SpO2 97 %. Gen: comfortable, NAD Focused Musculoskeletal Exam: Surgical incision/dressing clean, dry, and intact. Incisional wound vac in place No drainage or swelling. Neurovascularly intact in the operative extremity. LABS: Lab Results Component Value Date WBC 7.9 09/19/2022 HGB 12.5 09/19/2022 HCT 39.3 09/19/2022 MCV 89.9 09/19/2022 PLT 258 09/19/2022 Lab Results Component Value Date GLUCOSE 115 (H) 10/03/2022 CALCIUM 9.3 09/19/2022 NA 142 09/19/2022 K 4.7 09/19/2022 CO2 25 09/19/2022 CL 108 (H) 09/19/2022 BUN 21 (H) 09/19/2022 CREATININE 1.04 09/19/2022 No results found for: INR, PROTIME No results found for: PTT Assessment & Plan 67 y.o. female 1 Day Post-Op status post * Left knee revision arthroplasty poly exchange. - WBAT on the operative extremity - Xarelto 10 mg once daily with food x30 days for DVT ppx. Pt has allergy to ASA. - PT - SNF may remove prevena incisional wound vac in 1 week - Follow-up in clinic in 2-3 weeks for staple removal. - Plan for discharge to Subacute Rehab Facility ([facility] or ECF) when cleared by PT and medically stable * Debbie Kapadia RN - 10/02/2022 4:34 PM EST Spoke to Rosetta in admissions at [facility] and she does not know what fax [phone] isbut her fax is [phone] and manually faxed the referral but she also does not have beds until next week She would need to look at her beds to determine what day. Currently she is helping in the cafeteria but she will review and get back with CM tomorrow. * Amanda Horvath, PT - 10/02/2022 3:00 PM EST [facility] Physical Therapy Evaluation PT Discharge Recommendations: nursing home facility placement Distance Ambulated (ft): 30 Device: Rolling walker LLE Weight Bearing Status: As Tolerated L Knee Flexion 0-140: 0-62 Strength LLE L Ankle Dorsiflexion: 4/5 L Ankle Plantar Flexion: 4/5 AM-PAC: * Anusha Barber MD - Primary * Carlos Gomez DO - Fellow Procedure(s): Left knee revision arthroplasty poly exchange Day of Surgery Fall prevention education provided including use of call light in hospital, use of appropriate assistive device, safe mobility techniques, and safety measures at home. Continue PT as per POC. PT eval complete s/p L TK Revision. Pt instructed in safe mobility- see grid below. Pt assisted to bathroom to void then back to bed, reviewed LE VRE and ice pack donned. Pt plans to d/c to SNF. All needs met. Subjective Patient Active Problem List Diagnosis Mechanical loosening of internal left knee prosthetic joint ([facility]) Past Medical History: Diagnosis Date Anemia Asthma Chronic kidney disease CKD 2/3 COPD (chronic obstructive pulmonary disease) ([facility]) Diabetes mellitus ([facility]) DVT of leg (deep venous thrombosis) ([facility]) 2020 left leg GERD (gastroesophageal reflux disease) Hypertension Sleep apnea Wears dentures Wears glasses History reviewed. No pertinent surgical history. Objective 10/02/22 1500 PT Time Calculation PT Start Time 1500 PT Stop Time 1529 PT Time Calculation (min) 29 min Precautions LLE Weight Bearing Status As Tolerated Pain Assessment Pain Assessment 0-10 Pain Score 7 Pain Type Surgical pain Pain Location Knee Pain Interventions Cold applied;Repositioned;Ambulation/increased activity Cognition Arousal/Alertness Appropriate responses to stimuli Orientation Level Oriented X4 Home Living Type of Home House Lives With Son Home Adaptive Equipment Walker - rolling Home Layout One level Home Access Stairs to enter with rails Entrance Stairs-Number of Steps 3 Prior Function Level of [place] Independent with mobility and functional transfers Receives Help From Family Bed Mobility Sitting to Lying Assistance Minimum assistance;Minimal verbal cues Sitting to Lying Deficit Supervision/safety awareness;Verbal cueing;Increased time to complete;Assist lifting left leg onto bed Lying to Sitting Assistance Minimal verbal cues;Minimum assistance Lying to Sitting Deficit Verbal cueing;Supervision/safety awareness;Increased time to complete;Assist lifting left leg off of bed Transfers Sit to Stand Assistance Contact guard;Minimal verbal cues Sit to Stand Deficit Supervision/safety awareness;Verbal cueing Ambulation Walking Assistance Contact guard;Minimal verbal cues Walking Deficit Verbal cueing;Supervision/safety awareness Device Rolling walker Distance Ambulated (ft) 30 Comments vcs for proper step-to gait pattern; antalgic pattern LLE Assessment LLE Assessment Impaired LLE Assessment Additional Yes AROM LLE (degrees) L Knee Flexion 0-140 0-62 Strength LLE L Ankle Dorsiflexion 4/5 L Ankle Plantar Flexion 4/5 PT Assessment PT Assessment/ Barriers to discharge Decreased mobility Prognosis Good Evaluation/Treatment Tolerance Patient tolerated treatment well Medical Staff Made Aware Yes Comments RN updated on void and PT progress Plan Treatment/Interventions Functional transfer training;LE strengthening/ROM;Patient/family training;Equipment eval/education;Bed mobility;Gait training PT Plan Skilled PT PT Frequency 7 days per week PT Duration of Sessions PRN PT Treatments per day 1-2 times per day PT Discharge Recommendations nursing home facility placement Equipment Recommended WW PT - Evaluation Status Complete PT Evaluation Time Entry PT Evaluation (Low) Time Entry 15 Treatment performed during evaluation: Therapeutic Activity Therapeutic Activity Time Entry: 14 Therapeutic Activity 1: bed mobility Therapeutic Activity 2: transfers Therapeutic Activity 3: LE VRE x 10 Therapeutic Activity 4: toileting Goals and Education Encounter Problems Encounter Problems (Active) Template: Physical Therapy Problem: PT Short Term Goals Dates: Start: 10/02/22 Goal: Pt will transfer with SBA. Dates: Start: 10/02/22 Expected End: 10/04/22 Outcomes Date/Time User Outcome 10/02/22 1540 Amanda Horvath, PT Progressing Goal: Pt will ambulate 150 ft. with wheeled walker and SBA Dates: Start: 10/02/22 Expected End: 10/04/22 Outcomes Date/Time User Outcome 10/02/22 1540 Amanda Horvath, PT Progressing Goal: Pt will demo good understanding of HEP protocol Dates: Start: 10/02/22 Expected End: 10/04/22 Goal: Pt will ascend/descend steps with CGA and LRAD Dates: Start: 10/02/22 Expected End: 10/04/22 Encounter Problems (Resolved) There are no resolved problems. Education Documentation Home Exercise Program, taught by Amanda Hovrath PT at 10/02/2022 3:40 PM. Learner: Patient Readiness: Eager Method: Explanation Response: Verbalizes Understanding Mobility Training, taught by Amanda Horvath PT at 10/02/2022 3:40 PM. Learner: Patient Readiness: Eager Method: Explanation Response: Verbalizes Understanding Explain call button use, taught by Amanda Horvath PT at 10/02/2022 3:40 PM. Learner: Patient Readiness: Eager Method: Explanation Response: Verbalizes Understanding Teach fall prevention measures, taught by Amanda Horvath PT at 10/02/2022 3:40 PM. Learner: Patient Readiness: Eager Method: Explanation Response: Verbalizes Understanding Education Comments No comments found. * Debbie Kapadia RN - 10/02/2022 3:00 PM EST 10/02/22 1500 Patient Information Accompanied by/Relationship son Patient arrived from? Home Support System Immediate family Services Requested Physical Therapy skilled Occupational Therapy skilled DME potential needs Yes Destination/Placement SNF Level of Care Skilled Rehab Potential GOOD PCP and demographics confirmed The patient lives in a 1 story home with 3 SE 2 stairs with HR last one no HR. Her son lives with her but is not there much He works long hours and has a traveling job. She has a tub shower with no SB or room for a seat in the shower Standard low toilet. Has a FWW. Plan is SNF at discharge for rehab and safety before returning home. DVT prevention she is expecting the leg pumps for discharge Xarelto ordered and she can not follow with aspirin due to allergy to aspirin and the length of the xarelto will need to be addressed on rounds. Will need Rx's for discharge to SNF. Prevena in place. * Debbie Kapadia RN - 10/02/2022 3:00 PM EST 10/02/22 1500 Discharge Planning Living Arrangements Children Support Systems Children Assistance Needed skilled care Type of Residence Private residence Patient expects to be discharged to: SNF Does the patient need discharge transport arranged? No Follow Up Needs/Requests none Initial Transition Plan Initial Transition Plan [facility] Facility Back up Transition Plan Back up Transition plan [facility] Facility Plan is SNF and requesting [facility] in [place] * Anusha Harrell Pineda, DO - 10/02/2022 1:34 PM EST [facility] - PROGRESS NOTE Patient Name : Castillo Graham Patient : 1955 Patient Admit Date : 10/02/2022 Admission Diagnosis : Postoperative Medical Comanagement Provider Name : Anusha Sung DO Date Of Service : 10/02/22 IMPRESSION AND PLAN : Patient currently recovering in PACU. Status post left knee revision. EBL 50 DVT prophylaxis will be ordered by the primary surgical team. Please follow the most recent ACCP guidelines. I have seen the patient personally today and reviewed any available lab results on this patient. I reviewed all of the home medications and I ordered the postoperative pain regimen which will include IV Dilaudid. The patient will be on scheduled Tylenol, with as needed oxycodone and Flexeril. A medical consult has been ordered by the surgeon for perioperative management of the patient's chronic medical conditions including the following . . . Obstructive sleep apnea. Sleep apnea protocol ordered including BiPAP/CPAP therapy we will monitor patient's continuous pulse oximetry closely. Morbid obesity with BMI 43. This puts patient at increased risk for respiratory complications postoperatively. We will monitor on telemetry and with pulse ox. Chronic kidney disease. Baseline creatinine 1.04. Please avoid nephrotoxins including NSAIDs and Lara 2 inhibitors, avoid hypotension and/or hypovolemia. We will monitor serum creatinine while here. Asthma. We will order breathing treatments as needed as well as patient's home inhaler regimen. We will monitor respiratory status closely. Congestive heart failure. Patient takes midodrine. We will continue this while here patient appearseuvolemic and well compensated at this time. We will monitor her closely on telemetry. GERD. We will continue PPI while here. Diabetes mellitus type 2. We will follow patient's blood glucose closely postoperatively. Sliding scale insulin has been ordered. Neuropathy. We will continue Topamax and gabapentin as at home. This patient will be considered acceptable for discharge from a medical perspective if the following criteria are met . . . 1. Oxygen Saturations > 90% on Room Air 2. Able to void without difficulty 3. Meets Physical Therapy goals for discharge 4. Passing Flatus without nausea vomiting or abdominal distention 5. Cleared for discharge by surgeon 6. Discharge medication reconciliation completed, defer post discharge management of anticoagulants, DVT prophylaxis, NSAIDs, opiates, and antibiotics to surgical service. Subjective The patient did well in surgery with no complications. She denies shortness of breath or chest pain. She denies nausea and vomiting. Patient reports pain is currently tolerable on current pain regimen. REVIEW OF SYSTEMS Cardiovascular: Denies chest pain Respiratory: Denies shortness of breath or cough Gastrointestinal: Denies abdominal pain or nausea/vomiting Genitourinary: Denies urinary retention or incomplete voiding VITALS : Visit Vitals BP 132/79 Pulse 77 Temp 36.4 C (97.5 F) Resp 13 Ht 1.6 m (63 ) Wt 110 kg (242 lb 11.6 oz) SpO2 99% BMI 43.00 kg/m Smoking Status Former BSA 2.1 m PHYSICAL EXAM : General - No acute distress; Alert and conversational Cardiology - No tachycardia noted; No peripheral edema noted Respiratory - Clear to auscultate bilaterally; No accessory respiratory muscle use noted; No wheezing noted Abdominal - Non-tender to palpation; positive bowel sounds Musculoskeletal - No calf tenderness noted on palpation. Pain with left knee movement Psychiatric - Appropriate affect, Alert and oriented to person, place, and situation RESULTS : LABS Admission on 10/02/2022 Component Date Value SARS-COV-2 Screen 10/02/2022 Not Detected Body Fluid Source 10/02/2022 Synovial Body Fluid Clarity 10/02/2022 Hazy Body Fluid Color 10/02/2022 Yellow Body Fluid RBC 10/02/2022 5,000 Body Fluid Total Nucleat* 10/02/2022 167 Fluid Neutrophils 10/02/2022 3.0 Fluid Lymphocytes 10/02/2022 71.0 Fluid Monocytes/Macropha* 10/02/2022 17.0 Fluid Other Cells 10/02/2022 9.0 Glucose POCT 10/02/2022 120 (H) Glucose POCT 10/02/2022 78 IMAGING * Shilpi Rodriguez RN - 10/01/2022 9:37 AM EST Pt stated during PAT phone call that she would like to go to [facility] in [place] at discharge. She has no one at home to help her. documented in this [facility]12-16-2022 Hospital course Narrative* Debbie Kapadia RN - 10/03/2022 5:58 PM EST [facility] -PT/OT Eval for Gait training, ADL'S, bed mobility, transfers, knee rom and strengthening, venous return exercises and modalities prn. Please follow surgeon's discharge instructions and prescription directions. Surgeon' discharge instructions are in patient's folder- FOLLOW SURGEON INSTRUCTION SHEETS Contact Surgeon's office with any questions/concerns [phone] -When Prevena Wound Vac lifespan alarms IN 7 DAYS FROM SURGERY please remove the wound vac dressingOR HAVE A FOLLOW UP SCHEDULED FOR 10/09/22 TO HAVE THE OFFICE REMOVE. CALL TO SCHEDULE THIS APPOINTMENT IF YOU WANT THE OFFICE TO REMOVE. Take a photo of the incision and email : [email or web address] apply Optifoam dressing that is in your discharge folder. ---A wound check will be performed at one week which can be done either by in person by scheduling a follow up visit in one week with Dr. BARBER in clinic by calling [phone], or virtually via store and forward telehealth. If you are opting for a virtual one-week wound check: 1. Please remove Prevena dressing only after therapy has completed as indicated by the device. 2. Take a photo of your wound and E-mail the photo to [employer] with Attn Dr. Rodas in the subject line. 3. Cover the wound by applying the OptiFoam dressing included with your discharge materials. -Plasma Flow SCD'S Compression leg pumps on Bilateral Legs for 20 hours per day x 2 weeks for additional DVT prevention- SEE SURGEONS INSTRUCTION SHEETS FOR DIRECTIONS -use over the counter stool softeners to prevent constipation Call for a 3 week follow up appointment and any questions or concerns. Verify Office location when scheduling. [email or web address] [phone] * Shilpi Rodriguez RN - 10/01/2022 9:36 AM EST Pre-Surgery Instructions: Medication Instructions albuterol HFA (PROAIR HFA ; PROVENTIL HFA ; VENTOLIN HFA) 90 mcg/actuation inhaler Take as recommended by your specialist alendronate (FOSAMAX) 70 mg tablet Take as recommended by your specialist allopurinoL (ZYLOPRIM) 100 mg tablet Take as recommended by your specialist budesonide-formoteroL (SYMBICORT) 160-4.5 mcg/actuation inhaler Take as recommended by your specialist fluconazole (DIFLUCAN) 100 mg tablet Take as recommended by your specialist fluticasone propionate (FLONASE) 50 mcg/actuation nasal spray Take as recommended by your specialist gabapentin (NEURONTIN) 300 mg capsule Take as recommended by your specialist magnesium oxide 500 mg tablet Take as recommended by your specialist midodrine (PROAMATINE) 2.5 mg tablet Take as recommended by your specialist ondansetron (ZOFRAN) 4 mg tablet Take as recommended by your specialist oxyCODONE-acetaminophen (Percocet) 5-325 mg per tablet Take as recommended by your specialist pantoprazole (PROTONIX) 40 mg EC tablet Take as recommended by your specialist no122/iron/folic acid ( MULTI ORAL) Other (see Additional Instructions)last dose 10/01 (had previously stopped, but forgot) tirzepatide (Mounjaro) 2.5 mg/0.5 mL pen injector Take as recommended by your specialist tiZANidine (ZANAFLEX) 4 mg tablet Take as recommended by your specialist tiZANidine (ZANAFLEX) 4 mg tablet Take as recommended by your specialist topiramate (TOPAMAX) 25 mg tablet Take as recommended by your specialist Meds per [facility] recc NPO per JIS instruction Additional Instructions: Instructions to prepare for surgery: Increase water intake day PRIOR to surgery. Eat light meals or follow surgeon specific food instructions day PRIOR to surgery. At Midnight, nothing is allowed in your mouth. NO food, water, gum, candy, coffee, mints, tobacco, NOTHING AFTER MIDNIGHT. When you wake up, brush your teeth and use mouthwash. Don't swallow. Take small sip of water with meds that are to be taken DOS. Shower night prior and morning of surgery with antibiotic cleanser OR Dial antibacterial soap (as designated by surgeon). No lotions, creams, powders on your skin. You may wear deodorant (unless surgery is on your shoulder or breast(s)). No shaving surgical site (within 48 hours of surgery). Remove all jewelry, piercings and leave that at home. Leave valuable at home. Wear loose fitting clothes. Bring photo ID, medical insurance card, and copay as needed when you check in for surgery. In addition, bring any of the following: CPAP, living will/ medical POA, glasses, case, hearing aid container, shoulder sling, back brace, walker, cervical collar. Bring your COVID vaccine card, if applicable. Leave walker &/or cane (unless needed prior to surgery) and overnight bag in the car until after your procedure when you are assigned a room. Only 1 designated adult is allowed to go back into Pre-Op area with you. Surgical times are subject to change up until 5:30pm the evening prior to your surgery. Check in at retail center receptionist desk [address] [place] [address]. If Outpatient, these additional instructions apply: An adult must stay with you the whole time you are here and drive you home. An adult must stay withyou at home for 24 hours due to Anesthesia. If you have JEREMY, you are required to stay 3 hours after your surgery before we can discharge you. 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 We have discussed the risk, benefits, alternative treatments, and outcomes of a total knee revision arthroplasty. The patient understands and wished to proceed. PATIENT IDENTIFICATION: Patient was seen in preop, consent was reviewed, operative procedure was identified and surgical site and thigh marked. ANESTHESIA: Pre-Anesthesia Assessment: A History and Physical has been performed, and patient medication allergies have been reviewed. Therisks and benefits of the procedure and the sedation options and risks were discussed with the patient. All questions were answered and informed consent was obtained. Anesthesia administered: General, Adductor Canal Block, iPACK Block DESCRIPTION OF PROCEDURE: Intraoperative Inputs and Outputs: Outs: Estimated Blood Loss: 50 mL Ins: Lactated Ringer's: 1500 mL Intraoperative Medications: Naropin, Epinephrine Drains: No DESCRIPTION OF PROCEDURE: After informed consent was obtained, the patient was taken to the operating room following the induction of General, Adductor Canal Block, iPACK Block anesthesia. The left limb was prepped and drapedin standard surgical fashion. The tourniquet time was inflated for a tourniquet time of 31. A revision arthrotomy was performed carried down through the skin subcutaneously to expose the extensor mechanism to extend medial peripatellar, arthrotomy was performed. Clear fluid was identified and sent for culture. White blood cell count was 167 . Multiple soft tissue cultures were sent. The femoral and tibial components were found to be well fixed and well aligned, therefore a polyethylene insert ex change was performed. The jaw skinner was [employer] . The poly locked into the locking mechanism without issue. The patella was not revised. Drain used, No. Wound closure used was primary with wound glue. The wound was injected with a periarticular injection. Powdered Vancomycin was used at the appropriate time, either in the cement or within the wound. The patient was awakened from anesthesia, taken to the recovery room, awake, alert, stable, and in good condition. Postoperative radiographs were obtained which revealed good position and alignment of the components. CLOTH FINISHING RANGE BACK TENDER/ATTENDING PARTICIPATION: Carlos Gomez DO assisted with proper preoperative positioning, preoperative templating, determining availability of proper implants, prepping and draping of patient, manipulation placement of instruments, protection of ligaments and vital soft tissue structures, assistance in maintaining hemostasis and assistance with closure of the wound. He assisted with preoperative, intraoperative, postoperative determination of correct length ensuring accuracy of measurements. He assisted with the joint during the operation. His skills and knowledge of the steps of the operation and the desired outcome of each surgical step was crucial, allowing for efficient choreography of surgical procedure, and closure of the wound which lead to reduced surgical time, less blood loss, and less risk of complications for the patient. I was present and involved in all critical aspects of the operation and there was no apparent intra-operative complications. Digitally Signed By: Anusha Barber MD, on 10/02/2022 12:05:48 Formerly Named [facility], A Member of [facility] OPERATIVE REPORT PATIENT NAME: Castillo Graham DATE OF : 1955 CSN: [id number] SURGEON: Anusha Barber MD DATE OF SERVICE: 10/02/2022 DATE OF SURGERY: 10/02/2022 REF [id number] LOT [id number] ESTER Vivacit-E 16 Millimeter Tibial insert Use By 2024-11-18 (80) [id number] (39) [id number] (16) [id number] [facility] [id number] Procedure note* Anusha Barber MD - 10/02/2022 11:31 AM EST Formerly Named [facility], A Member of [facility] OPERATIVE REPORT PATIENT NAME: Castillo Graham DATE OF : 1955 CSN: [id number] SURGEON: Anusha Barber MD DATE OF SERVICE: 10/02/2022 DATE OF SURGERY: 10/02/2022 PREOPERATIVE DIAGNOSIS: Left knee arthroplasty failure, 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 We have discussed the risk, benefits, alternative treatments, and outcomes of a total knee revision arthroplasty. The patient understands and wished to proceed. PATIENT IDENTIFICATION: Patient was seen in preop, consent was reviewed, operative procedure was identified and surgical site and thigh marked. ANESTHESIA: Pre-Anesthesia Assessment: A History and Physical has been performed, and patient medication allergies have been reviewed. Therisks and benefits of the procedure and the sedation options and risks were discussed with the patient. All questions were answered and informed consent was obtained. Anesthesia administered: General, Adductor Canal Block, iPACK Block DESCRIPTION OF PROCEDURE: Intraoperative Inputs and Outputs: Outs: Estimated Blood Loss: 50 mL Ins: Lactated Ringer's: 1500 mL Intraoperative Medications: Naropin, Epinephrine Drains: No DESCRIPTION OF PROCEDURE: After informed consent was obtained, the patient was taken to the operating room following the induction of General, Adductor Canal Block, iPACK Block anesthesia. The left limb was prepped and drapedin standard surgical fashion. The tourniquet time was inflated for a tourniquet time of 31. A revision arthrotomy was performed carried down through the skin subcutaneously to expose the extensor mechanism to extend medial peripatellar, arthrotomy was performed. Clear fluid was identified and sent for culture. White blood cell count was 167 . Multiple soft tissue cultures were sent. The femoral and tibial components were found to be well fixed and well aligned, therefore a polyethylene insert ex change was performed. The jaw skinner was [employer] . The poly locked into the locking mechanism without issue. The patella was not revised. Drain used, No. Wound closure used was primary with wound glue. The wound was injected with a periarticular injection. Powdered Vancomycin was used at the appropriate time, either in the cement or within the wound. The patient was awakened from anesthesia, taken to the recovery room, awake, alert, stable, and in good condition. Postoperative radiographs were obtained which revealed good position and alignment of the components. CLOTH FINISHING RANGE BACK TENDER/ATTENDING PARTICIPATION: Carlos Gomez DO assisted with proper preoperative positioning, preoperative templating, determining availability of proper implants, prepping and draping of patient, manipulation placement of instruments, protection of ligaments and vital soft tissue structures, assistance in maintaining hemostasis and assistance with closure of the wound. He assisted with preoperative, intraoperative, postoperative determination of correct length ensuring accuracy of measurements. He assisted with the joint during the operation. His skills and knowledge of the steps of the operation and the desired outcome of each surgical step was crucial, allowing for efficient choreography of surgical procedure, and closure of the wound which lead to reduced surgical time, less blood loss, and less risk of complications for the patient. I was present and involved in all critical aspects of the operation and there was no apparent intra-operative complications. Digitally Signed By: Anusha Barber MD, on 10/02/2022 12:05:48 Formerly Named [facility], A Member of [facility] OPERATIVE REPORT PATIENT NAME: Castillo Graham DATE OF : 1955 CSN: [id number] SURGEON: Anusha Barber MD DATE OF SERVICE: 10/02/2022 DATE OF SURGERY: 10/02/2022 REF [id number] LOT [id number] ESTER Christinet-E 16 Millimeter Tibial insert Use By 2024-11-18 [id number] (03) [id number] (54) [id number] documented in this encounterClarks Summit State [id number] History and physical note* Anusha Barber MD - 10/02/2022 10:29 AM EST History and Physical Update ( H&P completed within the previous thirty days ) I personally reviewed the History and Physical, interviewed and examined the patient prior to surgery. No changes have occurred in the patient's condition since the History and Physical was completed. [facility] Work Phone: 1(245) 674-849512-15-2022 History and physical note* Anusha Barber MD - 10/02/2022 10:29 AM EST History and Physical Update ( H&P completed within the previous thirty days ) I personally reviewed the History and Physical, interviewed and examined the patient prior to surgery. No changes have occurred in the patient's condition since the History and Physical was completed. documented in this encounterClarks Summit State [id number] Evaluation note* Encounter Date Diagnosis Assessment Notes Treatment Notes Treatment Clinical Notes Sep, Chronic kidney disea se, stage 3a (ICD-10 - N18.31) She has mild chronic kidney disease possibly hypertensive nephrosclerosis with variable serum creatinine according to the blood pressure and volume status. Kidney function stable at baseline. Serum creatinine 0.9 mg deciliter. She has no proteinuria. Lisinopril was stopped Before because of hyperkalemia and orthostatic hypotension. On midodrine to keep MAP > 65 Avoid NSAIDs Continue same dsoe of loop diuretic follow up o 12 months Sep, Secondary renal hyperparathyroidism (ICD-10 - N25.81) Intact PTH is WNL She has CKD stage II/III. She is on oral vitamin D. 25 OH VD is WNL Sep, Hypertensive chronic kidney disease with stage 1 through stage 4 chronic kidney disease, or unspecified chronic kidney disease (ICD-10 - I12.9) Lisinopril was stopped because of orthostatic hypotension. She is on low-dose midodrine in addition to bumetanide 1 mg twice a day. She has no more dizziness. Sep, Anemia, unspecified type (ICD-10 - D64.9) Hemoglobin > 12. Sep, Edema of extremities (ICD-10 - R60.0) Patient was advised that her edema most likely related to underlying sleep apnea and morbid obesity. Importance of salt restriction and weight loss has been addressed. Continue smae diuretic dose Sep, BMI 45.0-49.9, adult (ICD-10 - Z68.42) Patient was referred to weight control clinic. Importance of weight loss has been addressed. 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 [facility] Other 12-01-2022 NoteCONSULTATION CONSULTATION DATE: 09/18/2022 This is a 67-year-old female who returns to the clinic for a 3-month follow-up for chronic lower back pain, left hip pain and left knee pain. She was last seen on 05/29/2022. At that time, she was in the process of having a workup from Orthopedics in [place] pending left knee and hip replacement. Today she reports that she is having a left total knee done on 10/[address] Barber in [place]. At her last appointment she was ordered lumbar medial branch block series but that is currently on hold. Her pain is 5 out of 10 today at rest. She does take Percocet 5/325 b.i.d., Tizanidine 4 mg q.h.s. and gabapentin 300 mg t.i.d. She does feel like the medication are helpful. She is unable to take NSAIDs secondary to kidney disease. Activities such as twisting, turning, standing, walking, lifting and transitioning from sitting to standing aggravate her pain. She does alternate heat and ice which she finds beneficial. Orthopedics had sent her to physical therapy which she completed two weeks ago. She noted minimal improvement. REVIEW OF SYSTEMS, PAST MEDICAL HISTORY, ALLERGIES AND IMAGES: Have been reviewed and noted in the chart. PHYSICAL EXAM: VITAL SIGNS: Blood pressure 160/70, heart rate is 95, temperature is 97.3. Height is 5'3 , weighs 112 kg. FOCUSED EXAM: BACK: Range of motion s guarded in lateral rotation and flexion/extension. Spinoaxial pain is reproduced upon direct compression along L2, L3 and L4, L5 bilaterally. This reproduces her lower back pain symptomatology. Paravertebral muscles are non-spasmodic. Loreto's point is mildly tender to the right which is non-radiating. Araceli's and compression tests are negative. MUSCULOSKELETAL: Motor is 4 out of 5 bilaterally. Muscle weakness noted bilateral quadriceps and hamstrings. Shed does walk with an unassisted gait steadily NEUROLOGICAL: Radicular sensory is intact, bilateral reflexes are +1. DIAGNOSIS: Lumbar spondylosis, bilateral knee osteoarthritis, left hip osteoarthritis. PLAN: We will just continue to manage her medications only at this time. We will keep her on gabapentin, tizanidine and Percocet at the set does and frequencies with no changes. We will see her in the clinic in 3 -months' time for a follow-up unless otherwise indicated.[facility] [id number] Evaluation note* Encounter Date Diagnosis Assessment Notes Treatment Notes Treatment Clinical Notes Jul, Pre-diabetes (ICD-10 - R73.09) Jul, BMI 40.0-44.9, adult (ICD-10 - Z68.41) Jul, Hip arthritis (ICD-1 0 - M16.10) Jul, Knee osteoarthritis (ICD-10 - M17.9) Jul, Hypertension (ICD-10 - I10) Jul, Gastric bypass statu s for obesity (ICD-10 - Z98.84) Jul, CKD (chronic kidney disease) stage 3, GFR 30-59 ml/min (ICD-10 - N18.3) Jul, JEREMY (obstructive sleep apnea) (ICD-10 - G47.33) Jul, Heart failure (ICD-1 0 - I50.9) Jul, Metabolic syndrome X (ICD-10 - E88.81) Jul, Medication managemen t (ICD-10 - Z79.899) Jul, Low back derangement syndrome (ICD-10 - M53.86) [facility] Other 09-13-2022 Evaluation note* Encounter Date Diagnosis Assessment Notes Treatment Notes Treatment Clinical Notes Jun, Pre-diabetes (ICD-10 - R73.09) Jun, BMI 40.0-44.9, adult (ICD-10 - Z68.41) Jun, Gastric bypass statu s for obesity (ICD-10 - Z98.84) Jun, Knee osteoarthritis (ICD-10 - M17.9) Jun, Hypertension (ICD-10 - I10) Jun, CKD (chronic kidney disease) stage 3, GFR 30-59 ml/min (ICD-10 - N18.3) 13 Jun, 2022 JEREMY (obstructive sleep apnea) (ICD-10 - G47.33) Jun, Heart failure (ICD-1 0 - I50.9) Jun, Metabolic syndrome X (ICD-10 - E88.81) Jun, Medication managemen t (ICD-10 - Z79.899) [facility] Other 08-11-2022 NoteCONSULTATION CONSULTATION DATE: 05/29/2022 HISTORY OF PRESENT ILLNESS: This is 66-year-old female returns to the clinic, status post lumbar epidural steroid injection completed on 05/13/2022 that afforded her 70% relief for three days. Her pain is still less than it was prior to the injection, but she is having diffuse lumbar pain at this time. She is experiencing left anterior lateral radiating pain to the left side. Prior imaging does show she has facet arthropathy as well as disc narrowing. Her pain is aggravated by standing, walking, sitting, stairs, bending and activity. She does alternate heat and ice, and she feels it gives her mild relief. She is unable to take NSAIDs secondary to stage 3 kidney failure. Medications include gabapentin 300 mg t.i.d., tizanidine 4 mg b.i.d., Topamax and [place] 5/325 b.i.d. She was seen by Dr. Desai, who referred her to an orthopedic high market risk specialist down in [place] regarding her left hip arthrosis. She is in need of a total left hip replacement, but she was sent to complete four weeks of therapy for strengthening prior to the surgery. The combination of her lower back pain and hip pain increases her pain. At rest, her pain is 4/10. With activity, it is 8-9/10. The patient feels the [place] is not as helpful as it has been in the past. Patient's REVIEW OF SYSTEMS / PAST MEDICAL HISTORY / ALLERGIES and IMAGES have been reviewed and they are noted on the chart. PHYSICAL EXAM: VITAL SIGNS: Blood pressure is 147/85. Heart rate is 80. She is 5'3 and weighs 113.7 kg. GENERAL APPEARANCE: Pleasant, appropriate, no acute distress. FOCUSED EXAM - BACK: Range of motion is guarded in flexion/extension and lateral rotation. Patient is exquisitely tender to light palpation along the lower lumbar facets of L2, L3 and L4, L5, particularly to the right. Patient does have positive jump response. Fullness palpated along the facets, indicative of facet arthropathy, lumbar spondylosis. Patient's pain does radiate to left anterior lateral thigh. This does not extend below the knee. Loreto's point is non-tender bilaterally. Negative FABERs. MUSCULOSKELETAL: Motor is intact, 4/5 bilaterally. Some diffuse muscle atrophy noted. Patient does walk with a stable gait without the use of assistive device. NEUROLOGICALLY: Patchy hypoesthesia noted along L2, L3 dermatome to the left. Blunted bilateral patellar reflexes. IMPRESSION: Lumbar degenerative disc disease, lumbar spondylosis, lumbar radiculitis, left hip osteoarthritis. PLAN: After discussing treatment options with the patient, she has agreed to move forward with a #1 bilateral MBB of L2, L3 and L4, L5. She will be changed to Percocet 5/325 b.i.d. to help capture both her hip pain as well as her lower back pain. I did discuss with the patient, she must bring in her [place] to be disposed of prior to starting the Percocet. She is in agreement to this. The intent is to go down to daily following her hip replacement and following lumbar rhizotomy. Patient will be brought in post procedure.[facility] [id number] Evaluation note* Encounter Date Diagnosis Assessment Notes Treatment Notes Treatment Clinical Notes May, Pre-diabetes (ICD-10 - R73.09) May, BMI 40.0-44.9, adult (ICD-10 - Z68.41) May, Gastric bypass statu s for obesity (ICD-10 - Z98.84) May, Knee osteoarthritis (ICD-10 - M17.9) May, Hypertension (ICD-10 - I10) May, CKD (chronic kidney disease) stage 3, GFR 30-59 ml/min (ICD-10 - N18.3) May, JEREMY (obstructive sleep apnea) (ICD-10 - G47.33) May, Heart failure (ICD-1 0 - I50.9) May, Metabolic syndrome X (ICD-10 - E88.81) May, Medication managemen t (ICD-10 - Z79.899) [facility] Other 07-07-2022 NoteCONSULTATION CONSULTATION DATE: 04/24/2022 This is a 66-year-old female returning to the clinic to re-discuss lumbar epidural steroid injection. She was last seen on 03/26/2022 and at that time she complained of lower back pain with radiating pain to the lateral aspects of bilateral thighs to a level below the knees. She has been preauthorized and approved for epidural steroid injection and is still considering it. She has also seen Dr. Desai for management of bilateral knee pain. She has had bilateral total knee replacements. She was currently taking [place] 5/325, 1.5 mg q. day. In addition, she takes gabapentin, tizanidine and Topamax. She was on Plavix but has been taken off of that two weeks ago. The patient recently saw her PCP and he suggested that the [place] be increased to b.i.d. for better management coverage. Her pain is 7 out of 10 today and is increased with pushing, pulling, sitting, standing, walking and lying down. She alternates heat and ice which does decrease the pain. REVIEW OF SYSTEMS, PAST MEDICAL HISTORY, ALLERGIES AND IMAGES: Have been reviewed and noted in the chart. PHYSICAL EXAM: VITAL SIGNS: Blood pressure 148/86, heart rate is 67, temperature is 97.7. Height is 5'3 , weighs 116.3 kg. GENERAL APPEARANCE: Pleasant, appropriate and in no acute distress. FOCUSED EXAM: Range of motion is decreased on lateral rotation and flexion/extension. Paravertebral muscles are taut but non-spasmodic. Reproduction of spinoaxial pain to direct compression along posterior elements of the lumbar facets of L3, L4 and L5. Loreto's point is mildly tender to the right. MUSCULOSKELETAL: The patient has motor weakness bilaterally to the anterior tibialis and peroneus longus. Radicular pain is present with patchy hypesthesia to L5, S1 bilaterally. Plus 1 bilateral patella and Achilles reflexes DIAGNOSIS: Lumbar degenerative disk and lumbar spondylosis. PLAN: Her [place] will be refilled at 5/325 b.i.d. After discussion with the patient, she agrees to move forward with the lumbar epidural steroid injection with sedation only. The patient agrees to this and was educated regarding her vitamins and magnesium. She will be followed up in the clinic post-procedure. [facility] Signed and Approved by: GIULIA PICHARDO . 05/01/2022 09:48:00[facility]06-29-2022 Evaluation note* Encounter Date Diagnosis Assessment Notes Treatment Notes Treatment Clinical Notes Mar, Pre-diabetes (ICD-10 - R73.09) Mar, BMI 45.0-49.9, adult (ICD-10 - Z68.42) Mar, Gastric bypass statu s for obesity (ICD-10 - Z98.84) Mar, Knee osteoarthritis (ICD-10 - M17.9) Mar, Hypertension (ICD-10 - I10) Mar, Hypoglycemia (ICD-10 - E16.2) Mar, CKD (chronic kidney disease) stage 3, GFR 30-59 ml/min (ICD-10 - N18.3) Mar, JEREMY (obstructive sleep apnea) (ICD-10 - G47.33) Mar, Heart failure (ICD-1 0 - I50.9) Mar, Metabolic syndrome X (ICD-10 - E88.81) Mar, Medication managemen t (ICD-10 - Z79.899) [facility] Other 06-28-2022 Evaluation note* Encounter Date Diagnosis Assessment Notes Treatment Notes Treatment Clinical Notes Mar, Asthma, moderate persistent (ICD-10 - J45.40) Mar, Morbid obesity (ICD-10 - E66.01) Mar, JEREMY (obstructive sleep apnea) (ICD-10 - G47.33) Mar, Allergic rhinitis (ICD-10 - J30.9) Mar, GERD (gastroesophageal reflux disease) (ICD-10 - K21.9) [facility] Other 06-15-2022 Evaluation note* Encounter Date Diagnosis Assessment Notes Treatment Notes Treatment Clinical Notes Mar, Chronic kidney disea se, stage 3a (ICD-10 - N18.31) She has mild chronic kidney disease possibly hypertensive nephrosclerosis with variable serum creatinine according to the blood pressure and volume status. Kidney function stable at baseline. Serum creatinine for visit 1.1 mg deciliter. She has no proteinuria. Lisinopril was stopped Before because of hyperkalemia and orthostatic hypotension. Serum creatinine did improve down 1.1-1.2 mg/dL off lisinopril. Mar, Secondary renal hyperparathyroidism (ICD-10 - N25.81) Intact PTH is on the high range of normal. She has CKD stage II/III. She is on oral vitamin D. We will recheck 25-hydroxy vitamin D, calcium and phosphorus and will add active vitamin D if needed. Mar, Hypertensive chronic kidney disease with stage 1 through stage 4 chronic kidney disease, or unspecified chronic kidney disease (ICD-10 - I12.9) Lisinopril was stopped because of orthostatic hypotension. She is on low-dose midodrine in addition to bumetanide 1 mg twice a day. She has no more dizziness. Mar, Anemia, unspecified type (ICD-10 - D64.9) Hemoglobin stable between 11 and 12 g/dL. She still has low ferritin with no evidence of bleeding. Mar, Edema of extremities (ICD-10 - R60.0) Patient was advised that her edema most likely related to underlying sleep apnea and morbid obesity. Importance of salt restriction and weight loss has been addressed. Mar, BMI 45.0-49.9, adult (ICD-10 - Z68.42) Patient was referred to weight control clinic. Importance of weight loss has been addressed. 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 [facility] Other 05-26-2022 Evaluation note* Encounter Date Diagnosis Assessment Notes Treatment Notes Treatment Clinical Notes February, Edema of extremities (ICD-10 - R60.0) [facility] Other 04-20-2022 Evaluation note* Encounter Date Diagnosis Assessment Notes Treatment Notes Treatment Clinical Notes Jan, Pre-diabetes (ICD-10 - R73.09) Jan, BMI 45.0-49.9, adult (ICD-10 - Z68.42) Jan, Gastric bypass statu s for obesity (ICD-10 - Z98.84) Jan, Knee osteoarthritis (ICD-10 - M17.9) Jan, Hypertension (ICD-10 - I10) Jan, Hypoglycemia (ICD-10 - E16.2) Jan, CKD (chronic kidney disease) stage 3, GFR 30-59 ml/min (ICD-10 - N18.3) Jan, JEREMY (obstructive sleep apnea) (ICD-10 - G47.33) Jan, Heart failure (ICD-1 0 - I50.9) Jan, Metabolic syndrome X (ICD-10 - E88.81) [facility] Other 04-11-2022 Evaluation note* Encounter Date Diagnosis Assessment Notes Treatment Notes Treatment Clinical Notes Jan, Acute right-sided thoracic back pain (ICD-10 - M54.6) [facility] Other 02-23-2022 Evaluation note* Encounter Date Diagnosis Assessment Notes Treatment Notes Treatment Clinical Notes Nov, Other chronic pain (ICD-10 - G89.29) [facility] Other 02-15-2022 Evaluation note* Encounter Date Diagnosis Assessment Notes Treatment Notes Treatment Clinical Notes Nov, Other chronic pain (ICD-10 - G89.29) [facility] Other 01-18-2022 Evaluation note* Encounter Date Diagnosis Assessment Notes Treatment Notes Treatment Clinical Notes Oct, Pre-diabetes (ICD-10 - R73.09) Oct, BMI 45.0-49.9, adult (ICD-10 - Z68.42) Oct, Knee osteoarthritis (ICD-10 - M17.9) Oct, Gastric bypass statu s for obesity (ICD-10 - Z98.84) Oct, Hypertension (ICD-10 - I10) Oct, Hypoglycemia (ICD-10 - E16.2) Oct, CKD (chronic kidney disease) stage 3, GFR 30-59 ml/min (ICD-10 - N18.3) Oct, JEREMY (obstructive sleep apnea) (ICD-10 - G47.33) Oct, Heart failure (ICD-1 0 - I50.9) Oct, Metabolic syndrome X (ICD-10 - E88.81) [facility] Other 01-18-2022 Evaluation note* Encounter Date Diagnosis Assessment Notes Treatment Notes Treatment Clinical Notes Oct, Other chronic pain (ICD-10 - G89.29) knee and low back pian. alloted for 1 per day, has been taking up to 3 per day but has not requested refills early. oarrs approrpaite. at initial visit discussed i wont give more than 1 per day. will refill as oarrs is appropriate. Oct, Acute right-sided thoracic back pain (ICD-10 - M54.6) will send in. Oct, Left anterior knee pain (ICD-10 - M25.562) total knee replacement 5 years ago, dr. pineda. will xray. normal knee exam. Oct, Other uses for skin y east infections, cannot say how often she uses it. [facility] Other 12-16-2021 Evaluation note* Encounter Date Diagnosis Assessment Notes Treatment Notes Treatment Clinical Notes Sep, Other chronic pain (ICD-10 - G89.29) [facility] Other 12-08-2021 Evaluation note* Encounter Date Diagnosis Assessment Notes Treatment Notes Treatment Clinical Notes Sep, Chronic kidney disea se, stage 3a (ICD-10 - N18.31) She has mild chronic kidney disease possibly hypertensive nephrosclerosis with variable serum creatinine according to the blood pressure and volume status. Calculated GFR with EPI formula considering her elevated body mass index comes to lose to 59 to 60 mL/min. She has no proteinuria. Lisinopril was stopped because of hyperkalemia and orthostatic hypotension. Serum creatinine did improve down 1.1-1.2 mg/dL off lisinopril. Sep, Secondary renal hyperparathyroidism (ICD-10 - N25.81) Intact PTH is on the high range of normal. She has CKD stage II/III. She is on oral vitamin D. We will recheck 25-hydroxy vitamin D, calcium and phosphorus and will add active vitamin D if needed. Sep, Hypertensive chronic kidney disease with stage 1 through stage 4 chronic kidney disease, or unspecified chronic kidney disease (ICD-10 - I12.9) Lisinopril was stopped because of orthostatic hypotension. She is on low-dose midodrine in addition to bumetanide 0.5 mg twice a day. She has no more dizziness. Sep, Anemia, unspecified type (ICD-10 - D64.9) Hemoglobin stable between 11 and 12 g/dL. She still has low ferritin with no evidence of bleeding. Sep, Edema of extremities (ICD-10 - R60.0) Patient was advised that her edema most likely related to underlying sleep apnea and morbid obesity. Importance of salt restriction and weight loss has been addressed. Handout for low-salt diet was given. Sep, BMI 45.0-49.9, adult (ICD-10 - Z68.42) Patient was referred to weight control clinic. Importance of weight loss has been addressed. Sep, Anemia in chronic ki dney disease (ICD-10 - D63.1) Hemoglobin stable on ferrous sulfate. [facility] Other 11-18-2021 Evaluation note* Encounter Date Diagnosis Assessment Notes Treatment Notes Treatment Clinical Notes Aug, Hyperuricemia (ICD-1 0 - E79.0) Aug, Other chronic pain (ICD-10 - G89.29) [facility] Other 10-29-2021 Evaluation note* Encounter Date Diagnosis Assessment Notes Treatment Notes Treatment Clinical Notes Jul, Lower extremity edema (ICD-10 - R60.0) [facility] Other 10-13-2021 Evaluation note* Encounter Date Diagnosis Assessment Notes Treatment Notes Treatment Clinical Notes Jul, Other chronic pain (ICD-10 - G89.29) Jul, Acute right-sided thoracic back pain (ICD-10 - M54.6) [facility] Other 10-13-2021 Evaluation note* Encounter Date Diagnosis Assessment Notes Treatment Notes Treatment Clinical Notes Jul, Other chronic pain (ICD-10 - G89.29) [facility] Other 10-07-2021 Evaluation note* Encounter Date Diagnosis Assessment Notes Treatment Notes Treatment Clinical Notes Jul, Hypoglycemia (ICD-10 - E16.2) Jul, Impaired fasting glucose (ICD-10 - R73.01) pt has order for diabetic shoes, i did discuss with her she does not meet the criteria as she is not diabetic and i wont certify that she is since she is not on meds and her a1c is 6.0. She was not happy with this as she reports she has had diabetic shoes in the past. Discussed with her we will contact [employer]. Jul, Lower extremity edema (ICD-10 - R60.0) stopped spironolactone on her own, has an appt with cardiolgy next month. stopped it becaues of cramping. fine balance with her CKD. will increase bumex and then add low dose potassium, have her get labs in 1.5 weeks. she is in agreement. Jul, Acute right-sided thoracic back pain (ICD-10 - M54.6) muscle spasm, encouraged heat, stretching, rest, muscle relaxer. Jul, Insomnia, unspecified type (ICD-10 - G47.00) she stopped her temazepam and has been off at least a month. [facility] Other 09-23-2021 Evaluation note* Encounter Date Diagnosis Assessment Notes Treatment Notes Treatment Clinical Notes Jun, Pre-diabetes (ICD-10 - R73.09) Jun, BMI 45.0-49.9, adult (ICD-10 - Z68.42) Jun, Hypoglycemia (ICD-10 - E16.2) Jun, Gastric bypass status for obesity (ICD-10 - Z98.84) Jun, Hypertension (ICD-10 - I10) Jun, CKD (chronic kidney disease) stage 3, GFR 30-59 ml/min (ICD-10 - N18.3) Jun, JEREMY (obstructive sleep apnea) (ICD-10 - G47.33) Jun, Heart failure (ICD-10 - I50.9) Jun, Metabolic syndrome X (ICD-10 - E88.81) [facility] Other 09-22-2021 Evaluation note* Encounter Date Diagnosis Assessment Notes Treatment Notes Treatment Clinical Notes Jun, Asthma, moderate persistent (ICD-10 - J45.40) Jun, Morbid obesity (ICD-10 - E66.01) Jun, JEREMY (obstructive sleep apnea) (ICD-10 - G47.33) Jun, Allergic rhinitis (ICD-10 - J30.9) Jun, GERD (gastroesophageal reflux disease) (ICD-10 - K21.9) [employer] [facility] Other Evaluation noteNo InformationNort TrackVia Other Evaluation note* Diagnosis Onset Date Resolution Status Iron deficiency anemia chron ic Thrombophlebitis [facility] Work Phone: Evaluation note* Diagnosis Mechanical loosening of internal left knee prosthetic joint, subsequent encounter- Primary Mechanical loosening of internal left knee prosthetic joint, 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, subsequent encounter [facility] Diagnosis S/P left knee surgery- Primary Infection and inflammatory reaction due to other internal joint prosthesis, initial encounter ([facility]) Infection and inflammatory reaction due to other internal joint prosthesis, initial encounter ([facility]) documented in this encounter [facility] noteNo assessment information [facility] Work Phone: History general Narrative - Reported* Type Description Date Medical History sleep apnea (noncompliant with P AP therapy) Medical History hypertension Medical History congestive heart failure Medical History CVI with h/o ulcers of LE with p ain and swelling Medical History h/o VV's Medical History Bilateral varicose veins Medical History PAD Medical History ANEMIA IN CHRONIC KIDNEY DISEASE Medical History INSOMNIA Medical History UNDIFFERENTIATED CONNECTIVE DISE ASE Medical History VITAMIN D DEFICIENCY Medical History HYPERURICEMIA Medical History OSTEOARTHRITIS OF THE KNEE Medical History MORBID OBESITY Medical History asthma Medical History Renal failure Medical History Blood clots Medical History JEREMY Medical History Esophageal reflux Surgical History appendectomy Surgical History tonsillectomy Surgical History gastric bypass 1983 Surgical History Caesarean section Surgical History left knee arthroplasty Surgical History EVLT Right LE 2008 Surgical History colonoscopy 02/2013 Surgical History Foot Surgery Surgical History TKA 12/2014 Surgical History toenails removed 02/22/2014 Surgical History cardiac catheterization 02/2013 Surgical History TKA rt 08/17/2017 Surgical History TENDINITIS IN LEFT FOOT Surgical History UPPER GI 05/2019 Hospitalization History appendectomy Hospitalization History tonsillectomy [place] [facility] [place] Kidney problems 03/20 019 Hospitalization History sEE ABOVE Hospitalization History pneumonia Hospitalization History Leg cramps [facility] [place] dehydrat ion 06/2021 [employer] [facility] [employer] Other Hisbvii [facility] - [facility] Other HisFriendly Score general Narrative - Reported* Type Description Date Medical History sleep apnea (noncompliant with P AP therapy) Medical History hypertension Medical History congestive heart failure Medical History CVI with h/o ulcers of LE with p ain and swelling Medical History h/o VV's Medical History Bilateral varicose veins Medical History PAD Medical History ANEMIA IN CHRONIC KIDNEY DISEASE Medical History INSOMNIA Medical History UNDIFFERENTIATED CONNECTIVE DISE ASE Medical History VITAMIN D DEFICIENCY Medical History HYPERURICEMIA Medical History OSTEOARTHRITIS OF THE KNEE Medical History MORBID OBESITY Medical History asthma Medical History Renal failure Medical History Blood clots Medical History JEREMY Medical History Esophageal reflux Surgical History appendectomy Surgical History tonsillectomy Surgical History gastric bypass 1983 Surgical History Caesarean section Surgical History left knee arthroplasty Surgical History EVLT Right LE 2007 Surgical History colonoscopy 02/2013 Surgical History Foot Surgery Surgical History TKA 12/2014 Surgical History toenails removed 02/22/2014 Surgical History cardiac catheterization 02/2013 Surgical History TKA rt 08/17/2017 Surgical History TENDINITIS IN LEFT FOOT Surgical History UPPER GI 05/2019 Surgical History Lt. TKA REVISION 10/02/2022 Hospitalization History appendectomy Hospitalization History tonsillectomy Hospital[place] [facility] [place] Kidney problems 03/20 019 Hospitalization History sEE ABOVE Hospitalization History pneumonia Hospitalization History Leg cramps [facility] [place] dehydrat ion 06/2021 [employer] [facility] [employer] Other Hisqjih general Narrative - Reported* Type Description Date Medical History sleep apnea (noncompliant with P AP therapy) Medical History hypertension Medical History congestive heart failure Medical History CVI with h/o ulcers of LE with p ain and swelling Medical History h/o VV's Medical History Bilateral varicose veins Medical History PAD Medical History ANEMIA IN CHRONIC KIDNEY DISEASE Medical History INSOMNIA Medical History UNDIFFERENTIATED CONNECTIVE DISE ASE Medical History VITAMIN D DEFICIENCY Medical History HYPERURICEMIA Medical History OSTEOARTHRITIS OF THE KNEE Medical History MORBID OBESITY Medical History asthma Medical History Renal failure Medical History Blood clots Medical History JEREMY Medical History Esophageal reflux Medical History thyroid disease Medical History chronic renal failure stage 4 Medical History DVT Medical History pulmonary embolism Medical History vitamin B12 deficiency Medical History gastroparesis Medical History vitamin D deficiency Medical History allergic rhinitis Medical History lactose intolerance Medical History hyperthyroidism Medical History Osteoarthritis Medical History anemia Medical History gastritis Medical History hyperuricemia Medical History diverticulosis Medical History osteopenia Medical History colon polyp Medical History insomnia Medical History degenerative disc disease Medical History Gout Medical History fibromyalgia Medical History emphysema Medical History diabetes mallitus Medical History polyneuropathy Medical History fatigue Medical History spondyloarthropathy Medical History high cholesterol Medical History PVD Medical History adopted Surgical History appendectomy Surgical History tonsillectomy Surgical History gastric bypass 1983 Surgical History Caesarean section Surgical History left right knee arthroplasty Surgical History EVLT Right LE 2007 Surgical History colonoscopy 02/2013 Surgical History Foot Surgery Surgical History TKA 12/2014 Surgical History toenails removed 02/22/2014 Surgical History cardiac catheterization 02/2013 Surgical History TKA rt 08/17/2017 Surgical History TENDINITIS IN LEFT FOOT Surgical History UPPER GI 05/2019 Surgical History Lt. TKA REVISION 10/02/2022 Surgical History biopsy-thyroid Surgical History colonoscopy Surgical History heart catheterization Surgical History bariatric surgery Hospitalization History appendectomy Hospitalization History tonsillectomy Hospital[place] [facility] [place] Kidney problems 03/20 019 Hospitalization History sEE ABOVE Hospitalization History pneumonia Hospitalization History Leg cramps [facility] [place] dehydrat ion 06/2021 [facility] Other History general Narrative - Reported* Type Description Date Medical History sleep apnea (noncompliant with P AP therapy) Medical History hypertension Medical History congestive heart failure Medical History CVI with h/o ulcers of LE with p ain and swelling Medical History h/o VV's Medical History Bilateral varicose veins Medical History PAD Medical History ANEMIA IN CHRONIC KIDNEY DISEASE Medical History INSOMNIA Medical History UNDIFFERENTIATED CONNECTIVE DISE ASE Medical History VITAMIN D DEFICIENCY Medical History HYPERURICEMIA Medical History OSTEOARTHRITIS OF THE KNEE Medical History MORBID OBESITY Medical History asthma Medical History Renal failure Medical History Blood clots Medical History JEREMY Medical History Esophageal reflux Medical History thyroid disease Medical History chronic renal failure stage 4 Medical History DVT Medical History pulmonary embolism Medical History vitamin B12 deficiency Medical History gastroparesis Medical History vitamin D deficiency Medical History allergic rhinitis Medical History lactose intolerance Medical History hyperthyroidism Medical History Osteoarthritis Medical History anemia Medical History gastritis Medical History hyperuricemia Medical History diverticulosis Medical History osteopenia Medical History colon polyp Medical History insomnia Medical History degenerative disc disease Medical History Gout Medical History fibromyalgia Medical History emphysema Medical History diabetes mallitus Medical History polyneuropathy Medical History fatigue Medical History spondyloarthropathy Medical History high cholesterol Medical History PVD Medical History adopted Surgical History appendectomy Surgical History tonsillectomy Surgical History gastric bypass 1983 Surgical History Caesarean section Surgical History left right knee arthroplasty Surgical History EVLT Right LE 2007 Surgical History colonoscopy 02/2013 Surgical History Foot Surgery Surgical History TKA 12/2014 Surgical History toenails removed 02/22/2014 Surgical History cardiac catheterization 02/2013 Surgical History TKA rt 08/17/2017 Surgical History TENDINITIS IN LEFT FOOT Surgical History UPPER GI 05/2019 Surgical History Lt. TKA REVISION 10/02/2022 Surgical History biopsy-thyroid Surgical History colonoscopy Surgical History heart catheterization Surgical History bariatric surgery Surgical History lt total knee revision 09/2022 Surgical History lt knee infection revision of k nee cap 03/2023 Hospitalization History appendectomy Hospitalization History tonsillectomy Hospitalization [place] [facility] [place] Kidney problems 03/20 019 Hospitalization History sEE ABOVE Hospitalization History pneumonia Hospitalization History Leg cramps [facility] [place] dehydr[place] 06/2021 [facility] Other History of Present illness Narrative* Patient is here for follow-up continue management for previous evaluation for right heart failure, obesity, sleep apnea and orthostatic hypotension. Since last time I saw her she reports is feeling reasonably well. Her shortness of breath has slightly improved. She lost close to 15 pounds since last time I saw her. Her recent laboratory data noted and reviewed with her. * Assessment * 1. volume overload and right-sided heart failure. Proved on low-dose diuretic therapy currently compensated * 2. History of hypertension controlled occasional orthostatic hypotension she is currently on midodrine according to her no dizziness recently * 3. chronic kidney disease creatinine was 1.3 recently * 4. Morbid obesity with recent 14 pound weight loss * 5. Diet-controlled diabetes mellitus * 6. Classic symptoms of sleep apnea with positive sleep study in the past but patient report poor tolerance to CPAP line * 7. Patient report previous cardiac catheterization showed no coronary artery disease * 8. Orthostatic hypotension improved with midodrine * Plan * 1. I advised the patient to wean herself gradually off midodrine and to use it only as needed basis * 2. I advised the patient to strict her fluid and salt intake * 3. I reviewed her previous cardiac work-up and recent echo with her * 4. I advised the patient that she should need to consider alternative treatment for her sleep apneaincluding possible surgery and or implantable device. 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 Encarnacion * 5. I reviewed her recent lab work * 6. We will see her back in 1 year in follow-up [facility] [address] DO Work Phone: Hospital Discharge instructions* Attachments The following attachments cannot be sent through Care Everywhere. * Fall Prevention (Italian) * DVT (Deep Vein Thrombosis): Prevention: General Info (Italian) * Pain Medication Precautions (Italian) * Constipation (Italian) * Incentive Spirometer: General Info (Italian) * Antibiotics: General Info (Italian) [facility]* Auth/Cert Specialty Diagnoses / Procedures Referred By Rene pina Referred To Contact Diagnoses Mechanical loosening of internal left knee prosthetic joint, subsequent encounter T84.033D Procedures [place] REVISION TOTAL KNEE ARTHROPLASTY WITH OR WITHOUT ALLOGRAFT 1 COMPONENT [place] REVISION TOTAL KNEE ARTHROPLASTY WITH OR WITHOUT ALLOGRAFT 1 COMPONENT Left knee revision arthroplasty poly exchange [place] [address] [facility] [address] [place] [address] Referral ID Status Reason Start Date Expiration Date Visits Re quested Visits Authorized [id number] 1 1 [facility] Narrative* Auth/Cert Specialty Diagnoses / Procedures Referred By Rene pina Referred To Contact Diagnoses Infection and inflammatory reaction due to other internal joint prosthesis, initial encounter ([facility]) T84.59XA Procedures [place] INCISION & DRAINAGE ABSCESS/BURSA/HEMATOMA DEEP SOFT TISSUE THIGH/KNEE Left knee I & D Anusha Barber MD [address] [place] [address] [facility] [address] [place] [address] Referral ID Status Reason Start Date Expiration Date Visits Re quested Visits Authorized [id number] 1 1 [facility] Summary Purpose Family History Unknown Family Member Name Dates Details Adopted: Other(V68.89, Z02.8 2) Status:Active Unknown family medical histo ry: Other Status:Active Relationship Condition Age at Onset Recorded Date/T claire Not Specified Family history not k nown due to adoption Unknown Unknown Family Member Name Dates Details Adopted: Other(V68.89, Z02.8 2) Status:Active Unknown family medical histo ry: Other Status:Active Advance Directives Advance Directive Response Recorded Date/ Time Advance Directives No January 31, 2 019 1:51pm Latest Code Status on File Code Status Date Activated Date Inactivated Comments Full Code - Default 10/02/2022 2:16 PM 10/06/2022 7:03 PM This is order is used when code status has not been discussed with the patient, or code status is otherwise unknown/unconfirmed To update the patient's code status, place a code status order. Do not modify or discontinue any currently active code status orders. Provide all therapy to prevent/treat cardiac or respiratory arrest. Latest Code Status on File Code Status Date Activated Date Inactivated Comments Full Code - Default 03/19/2023 3:18 PM 03/25/2023 4:47 PM This is order is used when code status has not been discussed with the patient, or code status is otherwise unknown/unconfirmed To update the patient's code status, place a code status order. Do not modify or discontinue any currently active code status orders. Provide all therapy to prevent/treat cardiac or respiratory arrest. Code Status History Code Status Date Activated Date Inactivated Comments Full Code - Default 10/02/2022 2:16 PM 10/06/2022 7:03 PM This is order is used when code status has not been discussed with the patient, or code status is otherwise unknown/unconfirmed To update the patient's code status, place a code status order. Do not modify or discontinue any currently active code status orders. Provide all therapy to prevent/treat cardiac or respiratory arrest. Chief Complaint and Reason for Visit Chief Complaint DVT Obesity E11.42 R53.82 E55.9 Blood in urine Reason for Visit Iron deficiency anem ia Thrombophlebitis Chief Complaint Obesity Chief Complaint CASTILLO GRAHAM is being seen for an annual follow-up of. Additional Source Comments INFORMATION SOURCE (unrecogn ized section and content) DATE CREATED AUTHOR 06/14/2018 [facility] DATE CREATED AUTHOR AUTHOR'S ORGANIZ ATION 07/09/2018 [facility] DATE CREATED AUTHOR AUTHOR'S ORGANIZ ATION 09/05/[address] [facility] DATE CREATED AUTHOR AUTHOR'S ORGANIZ ATION 12/29/2020 [facility] DATE CREATED AUTHOR AUTHOR'S ORGANIZ ATION 09/26/2022 [facility] DATE CREATED AUTHOR AUTHOR'S ORGANIZ ATION 09/26/2022 [employer] DATE CREATED AUTHOR AUTHOR'S ORGANIZ ATION 03/30/2023 [facility] DATE CREATED AUTHOR AUTHOR'S ORGANIZ ATION 03/30/2023 [facility] DATE CREATED AUTHOR AUTHOR'S ORGANIZ ATION 08/02/2023 [facility] DATE CREATED AUTHOR AUTHOR'S ORGANIZ ATION 08/10/2023 [facility] REASON FOR VISIT (unrecogniz ed section and content) 1 year fu-Asthma, JEREMY,GERD, Allergic rhniitisWMN Dr follow upmed questiondiabetic paperwork/r sided back painREFILLNo Informationmed refill/paperworklarger quantityREFILLRENAL 6 month Follow up for CKD stage III and hypertensionRD Cancelled 10/23/2021med refillWMN f/u3 month Follow up/RENEENo InformationrefillrefillDC Pt cancelled WMN Dr appt 12/10, LM 12/18, Pt LM 12/26, LM 12/26pain medOK TO TAKE MEDSFR-ERwheezing,coughingWMN Dr follow [facility]-ERSWELLINGNo InformationDLC ok to take TopamaxNo InformationRENAL 6 month Follow up9 mo f/u Asthma, JEREMY, GERD, Allergic RhinitisWMN DR follow upWMN f/uFRM-ERWMN Dr follow [facility] VoicemailNo InformationRENAL 6 month Follow upDC Mounjaro refill9 mo f/u Asthma, JEREMY, Allergic Rhinitis, GERDDLC MounjaroWMN F/UPermission for picc lineDLC mounjaro6 mo f/u Asthma, JEREMY, Allergic Rhinitis, GERDLAB RESULTSSymbicort Coverage Care Teams (unrecognized sec tion and content) Team Status: Active Member Role Status Dates Conrad Sosa , DO Primary Care Provider Active Team Status: Active Member Role Status Dates Conrad Sosa , DO Primary Care Provider Active Laquita Medina MD Attending Provider Active Team Status: Inactive Member Role Status Dates Conrad Sosa , DO Primary Care Provider Active Deidra Lee , CONVEYOR MECHANIC- Emergency Provider Active Team Status: Inactive Member Role Status Dates Elda Sibley , Primary Care Provider Active Conrad Sosa , DO Attending Provider Active Team Status: Active Member Role Status Dates Aryan Ndiaye MD Active Elda Sibley , DO Primary Care Provider Active Megan Epps APRN Attending Provider, Ot er Provider Active Factory 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 Relationship Specialty Start Date End Date Conrad Sosa, DO [address] [place] [address] PCP - General Family Medicine 09/22/22 Factory Focus Technician Relationship Specialty Start Date End Date Conrad Sosa, DO [address] [place] [address] PCP - General Family Medicine 09/22/22 Goals (unrecognized section and content) Goals may be documented in a n alternate section Ordered Prescriptions (unrec ognized section and content) Prescription Sig Dispensed Refills Start Date End Da te clindamycin (CLEOCIN) 300 mg capsule Take 1 capsule (300 mg total) by mouth 3 (three) times a day for 10 days. 30 each 0 10/04/2022 10/14/2022 rivaroxaban (XARELTO) 10 mg tablet Take 1 tablet (10 mg total) by mouth 1 (one) time each day. Take with food. 30 each 0 10/04/2022 11/03/2022 ondansetron (ZOFRAN) 4 mg tablet Take 1 tablet (4 mg total) by mouth every 8 (eight) hours if needed for nausea or vomiting for up to 7 days. 20 tablet 0 10/02/2022 10/09/2022 oxyCODONE (ROXICODONE) 5 mg immediate release tablet Take 1-2 tablets (5-10 mg total) by mouth every 4 (four) hours if needed for moderate pain or severe pain for up to 7 days. Dx: Z96.6 Max Daily Amount: 60 mg 40 tablet 0 10/02/2022 10/09/2022 acetaminophen (TYLENOL) 500 mg tablet Take 2 tablets (1,000 mg total) by mouth 3 (three) times a day for 7 days. Take every 8 hours for one week, then as needed. Do not exceed 3,000 mg daily limit. 50 tablet 0 10/02/2022 10/09/2022 rivaroxaban (XARELTO) 10 mg tablet Take 1 tablet (10 mg total) by mouth 1 (one) time each day. Take with food. Then start aspirin 81 mg tab twice daily for an additional 4 weeks. 30 each 0 10/03/2022 10/04/2022 rivaroxaban (XARELTO) 10 mg tablet Take 1 tablet (10 mg total) by mouth 1 (one) time each day for 14 days. Take with food. Then start aspirin 81 mg tab twice daily for an additional 4 weeks. 14 each 0 10/02/2022 10/03/2022 aspirin 81 mg chewable tablet Chew 1 tablet (81 mg total) 2 (two) times a day for 28 days. 1) Aspirin 81 mg, 1 tab PO BID for 6 weeks, Disp appropriate quantity. If patient is prescribed Arixtra/Lovenox/Xarel to, do not begin Aspirin until that medication is finished and then Aspirin only needs to be taken for 4 weeks. 56 each 0 10/17/2022 10/03/2022 traMADoL (ULTRAM) 50 mg tablet Take 1-2 tablets (50-100 mg total) by mouth every 6 (six) hours if needed for moderate pain for up to 7 days. Dx: Z96.6 Max Daily Amount: 400 mg 40 tablet 0 10/02/2022 10/03/2022 cephalexin (KEFLEX) 500 mg capsule Take 1 capsule (500 mg total) by mouth 3 (three) times a day for 3 doses. 3 capsule 0 10/02/2022 10/03/2022 Prescription Sig Dispensed Refills Start Date End Da te meropenem (MERREM) 1 gram injection Infuse 2 g into a venous catheter every 8 (eight) hours. ECF Nursing Instructions: 1)Picc Care 2)Qmon CBC,SR,Creat,CRP, fax to Dr. Bryan [phone] 3)IV ATB for 42 days 4)Call Dr. Bryan for F/C/S, N/V/D, rash, 5)F/U with Dr Bryan in 4-5 weeks 6) Call if released before completing IV therapy. 252 g 0 03/24/2023 05/05/2023 rivaroxaban (XARELTO) 10 mg tablet Take 1 tablet (10 mg total) by mouth 1 (one) time each day for 28 days. Take with food. If insurance does not cover or other patient barriers exist, then change to: Lovenox 40 mg subcutaneous injection, Daily, Disp #14 28 each 0 03/20/2023 04/17/2023 oxyCODONE (ROXICODONE) 5 mg immediate release tablet Take 1-2 tablets (5-10 mg total) by mouth every 4 (four) hours if needed for moderate pain or severe pain for up to 7 days. Dx: Z96.6 Max Daily Amount: 60 mg 40 tablet 0 03/19/2023 03/26/2023 ondansetron (ZOFRAN) 4 mg tablet Take 1 tablet (4 mg total) by mouth every 8 (eight) hours if needed for nausea or vomiting for up to 7 days. 20 tablet 0 03/19/2023 03/26/2023 acetaminophen (TYLENOL) 500 mg tablet Take 2 tablets (1,000 mg total) by mouth 3 (three) times a day for 7 days. Take every 8 hours for one week, then as needed. Do not exceed 3,000 mg daily limit. 50 tablet 0 03/19/2023 03/26/2023 traMADoL (ULTRAM) 50 mg tablet Take 1-2 tablets (50-100 mg total) by mouth every 6 (six) hours if needed for moderate pain for up to 7 days. Dx: Z96.6 Max Daily Amount: 400 mg 40 tablet 0 03/19/2023 03/20/2023 aspirin 81 mg EC tablet Take 1 tablet (81 mg total) by mouth 2 (two) times a day for 28 days. 56 each 0 03/19/2023 03/20/2023 rivaroxaban (XARELTO) 10 mg tablet Take 1 tablet (10 mg total) by mouth 1 (one) time each day for 14 days. Take with food. If insurance does not cover or other patient barriers exist, then change to: Lovenox 40 mg subcutaneous injection, Daily, Disp #14 14 each 0 03/20/2023 03/20/2023 Scheduled Active and Recently Administ ered Medications (unrecognized section and content) Medication Order 10/04/2022 10/05/2022 10/06/2022 acetaminophen (TYLENOL) tablet 1,000 mg 1,000 mg, oral, Every 6 hours scheduled, First dose on Pina 10/02/22 at 2100, Recovery & On Unit 0628 (Given - Provider: Gloria Mohan RN)1339 (Given - Provider: Shawn Rinaldi RN)1711 (Given - Provider: Cindy Durand RN) 0022 (Given - Provider: Jn Guillory RN)0551 (Given - Provider: Jn Guillory RN)1248 (Not Given - Provider: Shawn Rinaldi RN - Reason: Other - Comment: tylenol max in 24 hours already given)1839 (Given - Provider: Shawn Rinaldi RN) 0043 (Given - Provider: Srinivasa Olvera RN)0604 (Given - Provider: Srinivasa Olvera RN)1228 (Given - Provider: Barndy Mullen RN)1800 (Canceled Entry - Provider: Automatic Discharge Provider - Comment: Automatically canceled at discontinue of medication order) budesonide-formoteroL (SYMBICORT) 160-4.5 mcg/actuation inhaler 2 puff 2 puff, inhalation, 2 times daily, First dose on Thu10/03/22 at 1300, Please Select Inhaler (name and strength) Patient is able to Supply: budesonide-formoterol (SYMBICORT) inhaler 160-4.5 mcg/inh, Is patient COVID 19 positive or under investigation for COVID 19 (PUI) or in a dual occupancy room? No 0820 (Given - Provider: Opal Carter, CHRISTINA)2058 (Given - Provider: Karla Azevedo) 0727 (Given - Provider: Opal Carter RRT)2027 (Given - Provider: Berenice Carcamo RRT) 075 (Given - Provider: Alyse Jorge) gabapentin (NEURONTIN) capsule 300 mg 300 mg, oral, 3 times daily, First dose on Pina 10/02/22 at 2100 0854 (Given - Provider: Shawn Rinaldi RN)1339 (Given - Provider: Shawn Rinaldi RN)2016 (Given - Provider: Jn Guillory, MARIBELL) 0838 (Given - Provider: Shawn Rinaldi RN)1504 (Given - Provider: Shawn Rinaldi RN)2118 (Given - Provider: Madonna Fiore RN) 0916 (Given - Provider: Brandy Mullen RN)1435 (Given - Provider: Brandy Mullen RN) insulin lispro (HumaLOG) injection 1-6 Units 1-6 Units, subcutaneous, 3 times daily with meals, First dose on Pina 10/02/22 at 1700, Indication: Total Daily Dose (TDD) less than 40 units Administer with meal and/or mealtime dose of insulin to correct high blood glucose If mealtime insulin dose not given (e.g. patient NPO or not eating), still administer correction factor for high blood glucose 0858 (Not Given - Provider: Shawn Rinaldi RN - Reason: Order parameters not met)1228 (Not Given - Provider: Shawn Rinaldi RN - Reason: Order parameters not met)1707 (Not Given - Provider: Cindy Durand RN - Reason: Order parameters not met - Comment: BS 94) 0748 (Not Given - Provider: Shawn Rinaldi RN - Reason: Order parameters not met)1143 (Not Given - Provider: Shawn Rinaldi RN - Reason: Order parameters not met)1819 (Not Given - Provider: Shawn Rinaldi RN - Reason: Order parameters not met) 0755 (Not Given - Provider: Brandy Mullen RN - Reason: Order parameters not met)1256 (Not Given - Provider: Brandy Mullen RN - Reason: Patient/Resident/Agent refused - education provided - Comment: planned discharge)1700 (Canceled Entry - Provider: Automatic Discharge Provider - Comment: Automatically canceled at discontinue of medication order) midodrine (PROAMATINE) tablet 2.5 mg 2.5 mg, oral, 2 times daily, First dose on Thu10/02/22 at 2100 0854 (Given - Provider: Shawn Rinaldi, RN)2015 (Given - Provider: Jn Guillory RN) 08 (Given - Provider: Shawn Rinaldi RN)2117 (Given - Provider: Madonna Fiore, RN) 927 (Given - Provider: Brandy Mullen, RN) pantoprazole (PROTONIX) EC tablet 40 mg 40 mg, oral, 2 times daily, First dose on Thu10/02/22 at 2100, Do not crush, chew, or split. 0854 (Given - Provider: Shawn Rinaldi RN)2015 (Given - Provider: Jn Guillory RN) 08 (Given - Provider: Shawn Rinaldi RN)2117 (Given - Provider: Madonna Fiore, RN) 915 (Given - Provider: Brandy Mullen, MARIBELL) rivaroxaban (XARELTO) tablet 10 mg 10 mg, oral, Daily with dinner, First dose on Thu10/03/22 at 1700, Indication: VTE/PE Prophylaxis 1711 (Given - Provider: Cindy Durand RN) 1601 (Given - Provider: Shawn Rinaldi RN) 1700 (Canceled Entry - Provider: Automatic Discharge Provider - Comment: Automatically canceled at discontinue of medication order) senna (SENOKOT) tablet 8.6 mg 8.6 mg (1 tablet), oral, 2 times daily, First dose on Pina 10/02/22 at 2100 0854 (Given - Provider: Shawn Rinaldi, MARIBELL)2015 (Given - Provider: Jn Guillory RN) 08 (Given - Provider: Shawn Rinaldi RN)2117 (Given - Provider: Madonna Fiore, MARIBELL) 915 (Given - Provider: Brandy Mullen, MARIBELL) sodium chloride 0.9 % flush 10 mL(Linked Group 1) 10 mL, intravenous, 2 times daily, First dose on Thu10/02/22 at 1445, Recovery & On Unit 0858 (Given - Provider: Shawn Rinaldi RN)2100 (Canceled Entry - Provider: Automatic Discharge Provider - Comment: Automatically canceled at discontinue of medication order) 0840 (Given - Provider: Shawn Rinaldi RN)2143 (Given - Provider: Srinivasa Olvera RN) 0917 (Not Given - Provider: Brandy Mullen, MARIBELL - Reason: Patient/Resident/Agent refused - education provided ) topiramate (TOPAMAX) tablet 50 mg 50 mg, oral, Daily, First dose on Thu10/03/22 at 0900, HAZARDOUS Drug Precautions - Low Risk (Category A/NIOSH Group 3) Reproductive Risk Only: - Do NOT split, crush, or open dosage units - Single pair of ASTM standard D6978 certified chemotherapy gloves - Eye protection (goggles or face shield) required only with a potential for facial contact (i.e. concern for spitting or vomiting of the dose during or after administration) 0854 (Given - Provider: Shawn Rinaldi RN) 0838 (Given - Provider: Shawn Rinaldi RN) 0916 (Given - Provider: Brandy Mullen RN) Continuous Medication Order 10/04/2022 10/05/2022 10/06/2022 lactated Ringer's infusion 100 mL/hr, intravenous, Continuous, Starting on P[place] 10/02/22 at 1445 Oxygen Therapy, Adult inhalation, Continuous, Starting on P[place] 10/02/22 at 1445, Titrate 1 lpm - 4 lpm to keep SpO2 above 90%. If flow is increased above 4 lpm, please contact the physician., Device: Nasal Cannula, Keep O2 Sat Above: 90% PRN Medication Order 10/04/2022 10/05/2022 10/06/2022 acetaminophen (TYLENOL) tablet 325 mg 325 mg, oral, Every 6 hours PRN, mild pain, headaches, fever, Starting on P[place] 10/02/22 at 1416 albuterol 2.5 mg /3 mL (0.083 %) nebulizer solution 2.5 mg 2.5 mg, nebulization, Every 6 hours PRN, wheezing, Starting on P[place] 10/02/22 at 1416 albuterol HFA (6.7 g/200 puff common canister) 90 mcg/actuation inhaler 2 puff 2 puff, inhalation, Every 6 hours PRN, wheezing, shortness of breath, Starting on Thu10/03/22 at 1157, *Common Canister* for COVID 19 positive patients or patients under investigation (PUI). Follow site cleaning procedures before and after use., Is patient COVID 19 positive or under investigation for COVID 19 (PUI) or in a dual occupancy room? No aluminum-magnesium hydroxide-simethicone (MAALOX) 200-200-20 mg/5 mL suspension 30 mL 30 mL, oral, 4 times daily PRN, indigestion, heartburn, Starting on P[place] 10/02/22 at 1416 bethanechol (URECHOLINE) tablet 25 mg 25 mg, oral, 3 times daily PRN, As needed for urinary retention or PVR greater than 400 cc, Starting on P[place] 10/02/22 at 1416 bisacodyL (DULCOLAX) suppository 10 mg 10 mg, rectal, Daily PRN, constipation, If magnesium hydroxide ineffective, Starting on P[place] 10/02/22 at 1416 cloNIDine (CATAPRES) tablet 0.1 mg 0.1 mg, oral, Every 6 hours PRN, high blood pressure, For SBP >150 or DBP >100, Starting on 10/04/22 at 1128 cyclobenzaprine (FLEXERIL) tablet 10 mg 10 mg, oral, 3 times daily PRN, muscle spasms, Starting on P[place] 10/02/22 at 1416 2015 (Given - Provider: Jn Guillory RN) dextrose (D50W) 50% injection 12.5 g 12.5 g, intravenous, Every 15 min PRN, low blood sugar, moderate hypoglycemia *Patient is Unconscious, NPO, unable to swallow: BG GREATER than OR equal to 54 mg/dL*, Starting on Pina 10/02/22 at 1416 dextrose (D50W) 50% injection 25 g 25 g, intravenous, Every 15 min PRN, low blood sugar, severe hypoglycemia *Patient is Unconscious, NPO, unable to swallow: BG LESS than 54 mg/dL*, Starting on Pina 10/02/22 at 1416 dextrose 15 gram/59 mL oral solution 15 g 15 g, oral, Every 15 min PRN, low blood sugar, hypoglycemia *Patient conscious AND able to drink and swallow safely*, Starting on P[place] 10/02/22 at 1416 dextrose 15 gram/59 mL oral solution 30 g 30 g, oral, Every 15 min PRN, low blood sugar, hypoglycemia *Patient conscious AND able to drink and swallow safely*, Starting on Pina 10/02/22 at 1416 diphenhydrAMINE (BENADRYL) capsule 25 mg 25 mg, oral, Every 6 hours PRN, itching, Starting on [place] 10/05/22 at 1545 1601 (Given - Provider: Shawn Rinaldi RN)2121 (Given - Provider: Madonna Fiore RN) 0618 (Given - Provider: Srinivasa Olvera, MARIBELL)1521 (Given - Provider: Brandy Mullen RN) glucagon injection 1 mg 1 mg, intramuscular, Once as needed, low blood sugar, severe hypoglycemia, Starting on Pina 10/02/22 at 1416, For 1 dose HYDROmorphone (DILAUDID) injection 0.5 mg 0.5 mg, intravenous, Every 2 hours PRN, severe pain, For severe breakthrough pain not relieved with oral pain medication, Starting on P[place] 10/02/22 at 1416 magnesium hydroxide (MILK OF MAGNESIA) 400 mg/5 mL suspension 30 mL 30 mL, oral, 2 times daily PRN, constipation, Starting on Pina 10/02/22 at 1416, Follow dose with 8 oz of water. naloxone (NARCAN) injection 0.4 mg 0.4 mg, intravenous, Once as needed, opioid reversal, respiratory depression, Starting on Pina 10/02/22 at 1416, For 1 dose ondansetron (PF) (ZOFRAN) injection 4 mg 4 mg, intravenous, Every 6 hours PRN, nausea, vomiting, Starting on [place] 10/02/22 at 1416 oxyCODONE (ROXICODONE) immediate release tablet 10 mg(Linked Group 2) 10 mg, oral, Every 4 hours PRN, severe pain, Starting on [place] 10/02/22 at 1416 0308 (Given - Provider: Gloria Mohan RN)1007 (Given - Provider: Shawn Rinaldi RN)1543 (Given - Provider: Shawn Rinaldi RN)2017 (Given - Provider: Jn Guillory RN) 0022 (Given - Provider: Jn Guillory RN)0551 (Given - Provider: Jn Guillory RN)0945 (Given - Provider: Shawn Rinaldi RN)1601 (Given - Provider: Shawn Rinaldi RN)2118 (Given - Provider: Madonna Fiore RN) 0043 (Given - Provider: Srinivasa Olvera, RN)0922 (Given - Provider: Brandy Mullen, RN)1255 (Given - Provider: Brandy Mullen RN) oxyCODONE (ROXICODONE) immediate release tablet 5 mg(Linked Group 2) 5 mg, oral, Every 4 hours PRN, moderate pain, Starting on [place] 10/02/22 at 1416 0308 (See Alternative - Provider: Gloria Mohan RN)1007 (See Alternative - Provider: Shawn Rinaldi RN)1543 (See Alternative - Provider: Shawn Rinaldi RN)2017 (See Alternative - Provider: Jn Guillory RN) 0022 (See Alternative - Provider: Jn Guillory RN)0551 (See Alternative - Provider: Jn Guillory RN)0945 (See Alternative - Provider: Shawn Rinaldi RN)1601 (See Alternative - Provider: Shawn Rinaldi RN)2118 (See Alternative - Provider: Madonna Fiore RN) 0043 (See Alternative - Provider: Srinivasa Olvera RN)0922 (See Alternative - Provider: Brandy Mullen RN)1255 (See Alternative - Provider: Brandy Mullen RN) promethazine (PHENERGAN) suppository 25 mg 25 mg, rectal, Every 6 hours PRN, nausea, vomiting, Starting on P[place] 10/02/22 at 1416, For use if unable to tolerate p.o. Phenergan and IV Zofran ineffective promethazine (PHENERGAN) tablet 25 mg 25 mg, oral, Every 6 hours PRN, nausea, vomiting, Starting on [place] 10/02/22 at 1416, For use if IV Zofran ineffective or no IV access sodium chloride 0.9 % flush 10 mL(Linked Group 1) 10 mL, intravenous, As needed, line care, Starting on P[place] 10/02/22 at 1416, Recovery & On Unit traZODone (DESYREL) tablet 50 mg 50 mg, oral, Nightly PRN, sleep, Starting on [place] 10/02/22 at 1416 Linked Groups Order Group 1: Insert peripheral IV (CANCELED) STAT, Once, On Pina 10/02/22 at 1417, For 1 occurrence
Recovery & On Unit And Maintain IV access (CANCELED) Until discontinued, Starting on P[place] 10/02/22 at 1417, Until Specified
Recovery & On Unit And Saline lock IV (CANCELED) Routine, Once, On Pina 10/02/22 at 1417, For 1 occurrence
When tolerating PO fluids, Recovery & On Unit And sodium chloride 0.9 % flush 10 mLJump to med 10 mL, intravenous, 2 times daily, First dose on Pina 10/02/22 at 1445, Recovery & On Unit And sodium chloride 0.9 % flush 10 mLJump to med 10 mL, intravenous, As needed, line care, Starting on [place] 10/02/22 at 1416, Recovery & On Unit Group 2: oxyCODONE (ROXICODONE) immediate release tablet 5 mgJump to med 5 mg, oral, Every 4 hours PRN, moderate pain, Starting on [place] 10/02/22 at 1416 Or oxyCODONE (ROXICODONE) immediate release tablet 10 mgJump to med 10 mg, oral, Every 4 hours PRN, severe pain, Starting on [place] 10/02/22 at 1416 Scheduled Medication Order 03/23/2023 03/24/2023 03/25/2023 acetaminophen (TYLENOL) tablet 975 mg 975 mg, oral, Every 8 hours, First dose on [place] 03/19/23 at 2200 0540 (Given - Provider: Kendal Wong RN)1353 (Given - Provider: Dora Cha RN)2236 (Given - Provider: Pavan Linton RN) 0930 (Given - Provider: Charline Loera RN)1442 (Given - Provider: Charline Loera RN)2241 (Given - Provider: Gloria Mohan RN) 0502 (Given - Provider: Gloria Mohan RN)1326 (Given - Provider: Jocelyn Muller RN) allopurinoL (ZYLOPRIM) tablet 200 mg 200 mg, oral, Daily, First dose on Thu03/20/23 at 0900 0822 (Given - Provider: Dora Cha RN) 09 (Given - Provider: Charline Loera RN) 09 (Given - Provider: Jocelyn Muller, MARIBELL) budesonide-formoteroL (SYMBICORT) 160-4.5 mcg/actuation inhaler 2 puff 2 puff, inhalation, 2 times daily, First dose on Thu03/19/23 at 2100, Patient may use own - Rinse mouth with water after use to reduce aftertaste and incidence of candidiasis. Do not swallow., Is patient COVID 19 positive or under investigation for COVID 19 (PUI) or in a dual occupancy room? No 0740 (Given - Provider: Alyse Jorge)2039 (Given - Provider: Berenice Carcamo, CHRISTINA) 0704 (Given - Provider: Alyse Jorge)2145 (Given - Provider: Nory Khan RRT) 08 (Given - Provider: Nicole Ku) bumetanide (BUMEX) tablet 1 mg 1 mg, oral, 2 times daily, First dose on Thu03/20/23 at 0900, Regarding Diuretics - Hold if SBP < 110 ; Plan to start POD#1 0824 (Not Given - Provider: Dora Cha RN - Reason: Patient/Resident/Agen t refused - education provided )2032 (Not Given - Provider: Pavan Linton RN - Reason: Patient/Resident/Agen t refused - education provided ) 930 (Given - Provider: Charline Loera RN)2016 (Not Given - Provider: Gloria Mohan RN - Reason: Patient/Resident/Age nt refused - education provided ) 09 (Given - Provider: Jocelyn Muller, MARIBELL) docusate sodium (COLACE) capsule 100 mg 100 mg, oral, 2 times daily, First dose on Thu03/19/23 at 2100 0822 (Given - Provider: Dora Cha RN)2030 (Given - Provider: Pavan Linton, MARIBELL) 09 (Given - Provider: Charline Loera, MARIBELL)2017 (Given - Provider: Gloria Mohan RN) 09 (Not Given - Provider: Jocelyn Muller RN - Reason: Patient/Resident/Age nt refused - education provided ) gabapentin (NEURONTIN) capsule 300 mg 300 mg, oral, 3 times daily, First dose on Thu03/19/23 at 2100 0822 (Given - Provider: Dora Cha RN)1353 (Given - Provider: Dora Cha RN)2030 (Given - Provider: Pavan Linton, MARIBELL) 0930 (Given - Provider: Charline Loera RN)1444 (Given - Provider: Charline Loera RN)2017 (Given - Provider: Gloria Mohan RN) 0920 (Given - Provider: Jocelyn Muller, MARIBELL)1325 (Given - Provider: Jocelyn Muller, MARIBELL) magnesium hydroxide (MILK OF MAGNESIA) 400 mg/5 mL suspension 30 mL 30 mL, oral, Daily, First dose on Thu03/20/23 at 0900 0822 (Not Given - Provider: Dora Cha RN - Reason: Patient/Resident/Agen t refused - education provided ) 0927 (Given - Provider: Charline Loera RN) 09 (Not Given - Provider: Jocelyn Muller RN - Reason: Patient/Resident/Age nt refused - education provided ) magnesium oxide (MAG-OX) tablet 400 mg 400 mg, oral, Nightly, First dose on Thu03/19/23 at 2099 2030 (Given - Provider: Pavan Linton, MARIBELL) 2017 (Given - Provider: Gloria Mohan RN) meropenem (MERREM) 1 g in sodium chloride 0.9 % 100 mL IVPB - MBP 1 g, intravenous, at 200 mL/hr, Administer over 30 Minutes, Every 8 hours, First dose on Thu03/20/23 at 1700, For 21 doses, Mini-Bag Plus bag, Indication: Skin/Soft Tissue, Bone/Joint, Authorizing ID: Infectious Disease Physician/Fellow 010 (New Bag - Provider: Kendal Wong RN)08 (New Bag - Provider: Dora Cha RN)162 (New Bag - Provider: Dora Cha RN) 010 (New Bag - Provider: Pavan Linton, MARIBELL)0936 (New Bag - Provider: Brandy Mullen RN - Comment: by MARIBELL Elias)1623 (New Bag - Provider: Charline Loera, RN) 0003 (New Bag - Provider: Gloria Mohan, RN)0920 (New Bag - Provider: Jocelyn Muller, MARIBELL) pantoprazole (PROTONIX) EC tablet 40 mg 40 mg, oral, 2 times daily, First dose on [place] 03/19/23 at 2100, Do not crush, chew, or split. 0822 (Given - Provider: Dora Cha RN)2030 (Given - Provider: Pavan Linton, RN) 09 (Given - Provider: Charline Loera RN)2017 (Given - Provider: Gloria Mohan, MARIBELL) 0920 (Given - Provider: Jocelyn Muller, MARIBELL) polyethylene glycol (MIRALAX) packet 17 g 17 g, oral, Nightly, First dose on [place] 03/19/23 at 2099 2032 (Not Given - Provider: Pavan Linton RN - Reason: Patient/Resident/Agen t refused - education provided ) 2018 (Not Given - Provider: Gloria Mohan RN - Reason: Patient/Resident/Age nt refused - education provided ) rivaroxaban (XARELTO) tablet 10 mg 10 mg, oral, Daily with dinner, First dose on Thu03/20/23 at 1700, For 14 days, Recovery & On Unit, Indication: VTE/PE Prophylaxis 162 (Given - Provider: Dora Cha RN) 1639 (Given - Provider: Charline Loera, MARIBELL) senna (SENOKOT) tablet 8.6 mg 8.6 mg (1 tablet), oral, 2 times daily, First dose on [place] 03/19/23 at 2100 0822 (Not Given - Provider: Dora Cha RN - Reason: Patient/Resident/Agen t refused - education provided )2030 (Given - Provider: Pavan Linton, MARIBELL) 09 (Given - Provider: Charline Loera, MARIBELL)2017 (Given - Provider: Gloria Mohan RN) 0911 (Not Given - Provider: Jocelyn Muller RN - Reason: Patient/Resident/Age nt refused - education provided ) sodium chloride 0.9 % flush 10 mL(Linked Group 1) 10 mL, intravenous, 2 times daily, First dose on Thu03/19/23 at 2100, Recovery & On Unit 0823 (Given - Provider: Dora Cha, MARIBELL)2032 (Not Given - Provider: Pavan Linton, MARIBELL - Reason: Other - Comment: fluids running) 0930 (Given - Provider: Charline Loera, RN)2017 (Given - Provider: Gloria Mohan, MARIBELL) 0920 (Given - Provider: Jocelyn Muller, MARIBELL) sodium chloride 0.9 % flush 10 mL 10 mL, intravenous, Every 8 hours, First dose on Thu03/20/23 at 1130, All lumens before and after use and as necessary. 0101 (Given - Provider: Kendal Wong, MARIBELL)1056 (Given - Provider: Dora Cha, MARIBELL)2032 (Not Given - Provider: Pavan Linton RN - Reason: Other - Comment: fluids running) 0414 (Not Given - Provider: Pavan Linton RN - Reason: Other - Comment: fluids running)1137 (Given - Provider: Charline Loera, MARIBELL)2018 (Not Given - Provider: Gloria Mohan RN - Reason: Patient/Resident/Age nt refused - education provided ) 0003 (Given - Provider: Gloria Mohan RN)1109 (Pump Refill - Provider: Jocelyn Muller, MARIBELL) topiramate (TOPAMAX) tablet 50 mg 50 mg, oral, Nightly, First dose on Thu03/19/23 at 2100, HAZARDOUS Drug Precautions - Low Risk (Category A/NIOSH Group 3) Reproductive Risk Only: - Do NOT split, crush, or open dosage units - Single pair of ASTM standard D6978 certified chemotherapy gloves - Eye protection (goggles or face shield) required only with a potential for facial contact (i.e. concern for spitting or vomiting of the dose during or after administration) 2030 (Given - Provider: Pavan Linton, MARIBELL) 2017 (Given - Provider: Gloria Mohan RN) Continuous Medication Order 03/23/2023 03/24/2023 03/25/2023 sodium chloride 0.9 % infusion 100 mL/hr, intravenous, Continuous, Starting on Thu03/19/23 at 1700, Saline well in AM POD#1 at 0800AM 1632 (New Bag - Provider: Dora Cha RN) PRN Medication Order 03/23/2023 03/24/2023 03/25/2023 acetaminophen (TYLENOL) tablet 650 mg 650 mg, oral, Every 6 hours PRN, mild pain, fever, Starting on Pina 03/19/23 at 1631 albuterol 2.5 mg /3 mL (0.083 %) nebulizer solution 2.5 mg 2.5 mg, nebulization, Every 6 hours PRN, wheezing, Starting on [place] 03/19/23 at 1631 aluminum-magnesium hydroxide-simethicone (MAALOX) 200-200-20 mg/5 mL suspension 30 mL 30 mL, oral, 4 times daily PRN, indigestion, heartburn, Starting on [place] 03/19/23 at 1631 bethanechol (URECHOLINE) tablet 25 mg 25 mg, oral, 3 times daily PRN, bladder spasms, or Urinary Retention, Starting on P[place] 03/19/23 at 1631 bisacodyL (DULCOLAX) suppository 10 mg 10 mg, rectal, Daily PRN, constipation, If patient not passing flatus or feeling constipated, Starting on [place] 03/19/23 at 1631 cloNIDine (CATAPRES) tablet 0.1 mg 0.1 mg, oral, Every 6 hours PRN, high blood pressure, For SBP > 180 or DBP > 100, Starting on P[place] 03/19/23 at 1631 diphenhydrAMINE (BENADRYL) capsule 25 mg 25 mg, oral, Every 4 hours PRN, itching, Starting on [place] 03/19/23 at 1631 1054 (Given - Provider: Dora Cha RN) 0900 (Given - Provider: Charline Loera RN)1841 (Given - Provider: Charline Loera RN) diphenhydrAMINE (BENADRYL) injection 25 mg 25 mg, intravenous, Every 6 hours PRN, itching, Starting on [place] 03/19/23 at 1631 HYDROmorphone (DILAUDID) injection 0.5 mg 0.5 mg, intravenous, Every 2 hours PRN, severe pain, For severe breakthrough pain if oral pain medication not effective, Starting on P[place] 03/19/23 at 1631 naloxone (NARCAN) injection 0.4 mg 0.4 mg, intravenous, Once as needed, opioid reversal, Starting on Thu03/19/23 at 1631, For 1 dose ondansetron (PF) (ZOFRAN) injection 4 mg 4 mg, intravenous, Every 6 hours PRN, nausea, vomiting, Starting on Thu03/19/23 at 1631 oxyCODONE (ROXICODONE) immediate release tablet 10 mg(Linked Group 2) 10 mg, oral, Every 4 hours PRN, moderate pain, Starting on Thu03/20/23 at 0641 0109 (See Alternative - Provider: Kendal Wong RN)0540 (See Alternative - Provider: Kendal Wong RN)1054 (See Alternative - Provider: Dora Cha RN)1624 (See Alternative - Provider: Dora Cha RN)203 (See Alternative - Provider: Pavan Linton RN) 0423 (See Alternative - Provider: Pavan Linton RN)1034 (Given - Provider: Charline Loera RN)1843 (Given - Provider: Charline Loera RN)224 (See Alternative - Provider: Gloria Mohan RN) 0421 (See Alternative - Provider: Gloria Mohan RN)0921 (See Alternative - Provider: Jocelyn Muller RN)1325 (See Alternative - Provider: Jocelyn Muller RN) oxyCODONE (ROXICODONE) immediate release tablet 20 mg(Linked Group 2) 20 mg, oral, Every 4 hours PRN, severe pain, Starting on Thu03/20/23 at 0641 0109 (Given - Provider: Kendal Wong RN)0540 (Given - Provider: Kendal Wong RN)1054 (Given - Provider: Dora Cha RN)1624 (Given - Provider: Dora Cha RN)203 (Given - Provider: Pavan Linton RN) 0423 (Given - Provider: Pavan Linton RN)1034 (See Alternative - Provider: Charline Loera RN)1843 (See Alternative - Provider: Charline Loera RN)2241 (Given - Provider: Gloria Mohan RN) 0421 (Given - Provider: Gloria Mohan RN)0921 (Given - Provider: Jocelyn Muller RN)1325 (Given - Provider: Jocelyn Muller RN) Oxygen Therapy, Adult inhalation, As needed, shortness of breath, Titrate 2 - 4 L/min to keep Oxygen Sat > 90% ; Contact if patient requiring > 4L/min, Starting on [place] 03/19/23 at 1631, Device: Nasal Cannula, Rate in liters per minute: 2 lpm, Titrate Oxygen to keep O2 Sat. at or above: 90% promethazine (PHENERGAN) suppository 25 mg 25 mg, rectal, Every 6 hours PRN, nausea, vomiting, Starting on [place] 03/19/23 at 1631, For use if unable to tolerate PO and IV Zofran and PO Phenergan ineffective promethazine (PHENERGAN) tablet 25 mg 25 mg, oral, Every 6 hours PRN, nausea, vomiting, Starting on [place] 03/19/23 at 1631, For use if IV Zofran ineffective or patient has no IV access sodium chloride 0.9 % flush 10 mL(Linked Group 1) 10 mL, intravenous, As needed, line care, Starting on [place] 03/19/23 at 1506, Recovery & On Unit sodium chloride 0.9 % flush 20 mL 20 mL, intravenous, As needed, line care, Starting on Thu03/20/23 at 1102, All lumens after each blood draw/transfusion/TPN disconnect. All lumens prior to TPN/lab draw from opposite lumen (multi-lumen PICC types). tiZANidine (ZANAFLEX) tablet 8 mg 8 mg, oral, Daily PRN, muscle spasms, Starting on [place] 03/19/23 at 1631 traZODone (DESYREL) tablet 25 mg 25 mg, oral, Nightly PRN, sleep, Starting on [place] 03/19/23 at 1631 Linked Groups Order Group 1: Insert peripheral IV (CANCELED) STAT, Once, On [place] 03/19/23 at 1507, For 1 occurrence
Recovery & On Unit And Maintain IV access (CANCELED) Until discontinued, Starting on [place] 03/19/23 at 1507, Until Specified
Recovery & On Unit And Saline lock IV (CANCELED) Routine, Once, On [place] 03/19/23 at 1507, For 1 occurrence
When tolerating PO fluids, Recovery & On Unit And sodium chloride 0.9 % flush 10 mLJump to med 10 mL, intravenous, 2 times daily, First dose on [place] 03/19/23 at 2100, Recovery & On Unit And sodium chloride 0.9 % flush 10 mLJump to med 10 mL, intravenous, As needed, line care, Starting on [place] 03/19/23 at 1506, Recovery & On Unit Group 2: oxyCODONE (ROXICODONE) immediate release tablet 10 mgJump to med 10 mg, oral, Every 4 hours PRN, moderate pain, Starting on Thu03/20/23 at 0641 Or oxyCODONE (ROXICODONE) immediate release tablet 20 mgJump to med 20 mg, oral, Every 4 hours PRN, severe pain, Starting on Thu03/20/23 at 0641 FOR RECORDS PERTAINING TO PATIENTS WHO ARE OR HAVE BEEN ENROLLED IN A CHEMICAL DEPENDENCY/SUBSTANCEABUSE PROGRAM, SOME INFORMATION MAY BE OMITTED. This clinical summary was aggregated from multiple sources. Caution should be exercised in using it in the provision of clinical care. This summary normalizes information from multiple sources, and as a consequence, information in this document may materially change the coding, format and clinical context of patient data. In addition, data may be omitted in some cases. CLINICAL DECISIONS SHOULD BE BASED ON THE PRIMARY CLINICAL RECORDS. [employer] provides no warranty or guarantee of the accuracy or completeness of information in this document.
--- NOTE | 2023-12-15 09:12 | CA_ITS ---
Patient Name: CASTILLO GRAHAM MR#: [id number] : 1955 Exam Date: 12/15/2023 Ordering Doctor: DR PETER ZHOU D.O. ECHOCARDIOGRAM REPORT PROCEDURE: CA ECHO DOPPLER COMPLETE INDICATIONS: Chronic systolic heart failure COMPARISON: None. DESCRIPTION: COMPLETE ECHOCARDIOGRAM Real-time transthoracic echocardiography with 2D, M-mode, spectral and color flow Doppler performed. QUALITY: Technical quality was good. LEFT VENTRICLE: Normal chamber size. Left ventricular wall thickness is increased. LV EF: Global left ventricular systolic function is normal. Calculated left ventricular ejection fraction is 58%. Abnormal septal motion; likely related to underlying bundle branch block. DIASTOLIC: Normal diastolic function. ATRIAL SEPTUM: Inadequately seen. LEFT ATRIUM: Normal chamber size. RIGHT ATRIUM: Normal chamber size. RIGHT VENTRICLE: Normal chamber size. Normal right ventricular systolic function. TRICUSPID VALVE: Normal mobility and thickness. No stenosis with trivial regurgitation. No evidence of pulmonary hypertension. RVSP 23mmHg MITRAL VALVE: Normal mobility and thickness. No evidence of mitral valve stenosis. There is no mitral annular calcification. Mild mitral regurgitation. AORTIC VALVE: Normal trileaflet appearance. No visible sclerosis. Normal leaflet mobility. No evidence of aortic valve stenosis. Trivial aortic regurgitation. AORTIC ROOT: Normal diameter and appearance. PULMONIC VALVE: Normal thickness and mobility. No stenosis. Trivial regurgitation. PERICARDIUM: No evidence of pericardial effusion. IVC: Collapses with inspirations. Normal size. CONCLUSION: 1. Global left ventricular systolic function is normal; visually estimated ejection fraction is 55 to 60% 2. Normal right ventricular size and systolic function 3. Normal diastolic function 4. The left atrium is normal in size 5. Mild mitral regurgitation Adult Echocardiography Procedure Report Left Ventricle LVEDD (3.7 - 5.6 cm): 5.08 cm LVESD (2.2 - 4.0 cm): 3.54 cm LVIVS thickness (0.6 - 1.2 cm): 0.98 cm LVPW thickness (0.5 - 1.0 cm): 0.83 cm e': 0.08 m/s E - e': 9.88 LVOT Max Gradient: 4.05 mm[Hg] LVOT Area (cm2): 1.01 m/s Peak Velocity (LVOT): 1.01 m/s Mean Velocity (LVOT): 0.66 m/s LVOT Diameter 2.06 cm Left Ventricular Ejection Fraction: 57.80 % Left Atrium LA Volume Index (2D A2C): 35.46 ml/m2 Left Atrium Systolic Dimension: 3.36 cm Mitral Valve MV E to A Ratio: 0.83 Mitral Valve A-Wave Peak Velocity: 0.92 m/s Mitral Valve E-Wave Peak Velocity: 0.76 m/s Right Ventricle RV Internal Diastolic Dimension: 3.33 cm Aorta AO Root Diam: 2.87 cm Ascending Ao Diam: 2.78 cm Aortic Valve AoV Area ([place]): 2.28 cm2, 2.28 cm2 AoV Area (VTI): 2.12 cm2, 2.12 cm2 Peak Velocity(Antegrade Flow): 1.48 m/s Peak Gradient(Antegrade Flow): 8.72 mm[Hg] Mean Velocity(Antegrade Flow): 1.01 m/s Mean Gradient(Antegrade Flow): 4.65 mm[Hg] Velocity Time Integral: 36.19 cm Tricuspid Valve Peak Velocity (Regurgitant Flow): 1.58 m/s, 2.25 m/s, 2.23 m/s Pulmonic Valve Peak Velocity: 1.18 m/s Peak Gradient: 5.11 mm[Hg], 6.12 mm[Hg] Right Atrium Right Atrium Systolic Pressure: 54.41 ml, 54.41 ml Dictated by: Aleena Hernandez M.D. on 12/16/2023 at 13:13 Approved by: Aleena Hernandez M.D. on 12/16/2023 at 13:17
[2023-12-15] MEDS: REGADENOSON 0.4 MG/5 ML SYRINGE IV (10:29)
--- NOTE | 2023-12-15 10:37 | PM.STRESS ---
Stress Test Stress Test Allergies Allergy/AdvReac Type Severity Reaction Status Date / Time aspirin Allergy Unknown Verified 06/01/23 13:46 furosemide [From Lasix] Allergy Unknown Verified 06/01/23 13:46 latex Allergy Unknown Verified 06/01/23 13:46 nabumetone Allergy Unknown Verified 06/01/23 13:46 Penicillins Allergy Unknown Verified 06/01/23 13:46 Sulfa (Sulfonamide Allergy Unknown Verified 06/01/23 13:46 Antibiotics) adhesive Allergy Unknown Uncoded 06/01/23 13:46 Requesting physician: PETER ZHOU Procedure: Lexiscan Cardiolite stress test General Information: Reason for Stress Test: Chest pain Cardiac History and Risk Factors: CHF Resting 12 - Lead Electrocardiogram: Rate & rhythm: Normal sinus at a rate of 63. [place]: Left axis deviation T-waves: Normal orientation ST-segments: Mild ST-segment downsloping in the inferior leads (II, III, aVF) Left bundle branch block (LBBB) Comparison 05/18/2023: No downsloping was noted at this time. LBBB is present. Stress Test: Protocol: Lexiscan protocol was initiated with injection of 0.4mg Lexiscan IV push followed by Cardiolite. Blood pressure: Initial: 128/76, Maximum: 134/70 Rate & rhythm: Patient remained in sinus rhythm during the exercise and recovery portions of the study.? The maximum heart rate was 81, which was 53% of the maximum predicted heart rate. ST-segments & T-waves: There were no T-wave changes and no ST-segment changes when compared to the baseline EKG. Patient response/symptoms: There were no symptoms similar to the chief complaint. Interpretation: Non-diagnostic Lexiscan stress test given baseline ST-segment changes in the inferior leads - LBBB could obscure presence of ischemic changes; ST-segment changes are new when compared to 05/18/2023. Asymptomatic. Cardiolite imaging interpretation will be reported separately. Clinical correlation required.?
== END 2023-12-15 08:20 | disposition home or self-care (01) ==
LOC: NM 08:21
PROVIDERS: PCP Family Medicine; Visit Provider Family Medicine
DX: R07.89 Other chest pain (principal); I50.22 Chronic systolic (congestive) heart failure
CPT/HCPCS: 78452; 93017; 93306; 93356; A9500; J2785

== ENCOUNTER 2024-01-27 10:54 | Outpatient (OUT) | payer MEDICARE, MEDICAID, SELFPAY ==
--- NOTE | 2024-01-27 10:56 | US_ITS ---
[address] [address] Patient Name: CASTILLO GRAHAM MRN: [id number] date: 1955 Sex: F Assigned Patient Location: US Current Patient Location: US Accession/Order Number: [id number] Exam Date: 01/27/2024 11:00 Report Date: 01/27/2024 12:43 At the request of: LEAH BARRERA Procedure: US thyroid EXAMINATION: US thyroid HISTORY: Non Toxic Multinodular Goiter E04.2 COMPARISON: 01/07/2023 TECHNIQUE: Sonographic images of the thyroid gland were obtained. FINDINGS: The right thyroid lobe measures 4.7 x 1.9 x 2.4 cm. Heterogeneous echotexture with a single nodule over 5 mm. The thyroid isthmus measures 3 mm. Heterogeneous. No focal nodule The left thyroid lobe measures 3.8 x 1.9 x 1.5 cm. Heterogeneous echotexture with 2 focal nodules over 5 mm The most suspicious nodule: Right thyroid lobe: 1.2 x 1.4 x 1.0 cm. Solid, isoechoic, wide, smooth margins, no calcifications. TR 3 In the left neck is a borderline enlarged lymph node measuring 2.0 x 1.0 x 0.9 cm US/US thyroid IMPRESSION: Stable bilateral thyroid nodules TI-RADS: The [employer] TI-RADS committee's white paper recommendations for thyroid lesions classified as TR3 (mildly suspicious) are listed below: > 1.5 cm. Follow-up ultrasound in 1, 3, and 5 years. > 2.5 cm. FNA. J. Am Nick Radiol 2017;14:[id number]. Electronically authenticated by: ANUSHA AGUERO Date: 01/27/2024 12:43
== END 2024-01-27 10:55 | disposition home or self-care (01) ==
LOC: US 10:54
PROVIDERS: PCP Family Medicine; Visit Provider Otolaryngology
DX: E04.2 Nontoxic multinodular goiter (principal)
CPT/HCPCS: 76536

== ENCOUNTER 2024-02-09 10:37 | Outpatient (OUT) | payer MEDICARE, MEDICAID, SELFPAY ==
--- NOTE | 2024-02-09 10:53 | XR_ITS ---
[place] [id number] Patient Name: CASTILLO GRAHAM MRN: [id number] date: 1955 Sex: F Assigned Patient Location: [facility] Current Patient Location: [facility] Accession/Order Number: [id number] Exam Date: 02/09/2024 10:45 Report Date: 02/09/2024 15:39 At the request of: PETER ZHOU Procedure: XR shoulder RT min 2V PROCEDURE: XR shoulder RT min 2V COMPARISON: None. HISTORY: pain in right shoulder [id number] FINDINGS: BONES:No acute fracture or dislocation. Mild acromioclavicular joint osteoarthropathy with 2 mm of subacromial spurring. The glenohumeral joint is intact. Moderate spondylosis of the spine SOFT TISSUES:Negative. No visible soft tissue swelling. EFFUSION:None visible. OTHER: Negative. XR/XR shoulder RT min 2V IMPRESSION: Degenerative osteoarthritis Electronically authenticated by: ANUSHA AGUERO Date: 02/09/2024 15:39
== END 2024-02-09 10:38 | disposition home or self-care (01) ==
LOC: RAD 10:37
PROVIDERS: PCP Family Medicine; Visit Provider Family Medicine
DX: M25.511 Pain in right shoulder (principal); M19.011 Primary osteoarthritis, right shoulder
CPT/HCPCS: 73030

== ENCOUNTER 2024-02-12 08:50 | Outpatient (OUT) | payer MEDICARE, MEDICAID, SELFPAY ==
--- NOTE | 2024-02-12 08:53 | CT_ITS ---
The [address] [address] Patient Name: CASTILLO GRAHAM MRN: [id number] date: 1955 Sex: F Assigned Patient Location: CT Current Patient Location: CT Accession/Order Number: [id number] Exam Date: 02/12/2024 08:58 Report Date: 02/12/2024 14:42 At the request of: LEAH BARRERA Procedure: CT soft tissue neck wo con EXAM: CT soft tissue neck wo con HISTORY: Lymphadenopathy Of Left Cervical Region R59.0 COMPARISON: Thyroid ultrasound 02/06/2024. TECHNIQUE: Axial noncontrast CT imaging of the neck soft tissues was performed with coronal and sagittal reformats. This CT exam was performed using one or more of the following dose reduction techniques: Automated exposure control, adjustment of the MA and/or kV according to patient size, or use of iterative reconstruction technique. FINDINGS: Skull base/intracranial: Intracranial atherosclerosis. The visualized portions of the intracranial structures are otherwise unremarkable. Paranasal sinuses are clear. Mastoid and middle ears are well aerated. Visualized portions of the orbits are unremarkable. Neck soft tissues: Evaluation of the oral cavity and facial soft tissues is degraded by streak artifact from dental amalgam. The oropharynx, hypopharynx and glottis demonstrate no significant abnormality. The submandibular glands and parotid glands demonstrate normal CT appearance. Mildly heterogeneous appearance of the thyroid with active internal right thyroid nodules better evaluated on recent ultrasound. Lymph nodes: The previously described borderline enlarged lymph nodes along the left jugulodigastric chain measures 8 mm in short axis diameter with mildly elongated craniocaudal appearance. This is otherwise morphologically normal. No technically enlarged or morphologically abnormal-appearing lymph nodes are seen. Vasculature: Minimal atherosclerotic change. Musculoskeletal: No significant spinal canal or neural foraminal narrowing. No destructive osseous lesions are identified. Upper thorax: The visualized portions of the lungs are clear. CT/CT soft tissue neck wo con IMPRESSION: No technically enlarged or morphologically abnormal lymph nodes. Electronically authenticated by: SHEILA ALBERTO Date: 02/12/2024 14:42
== END 2024-02-12 08:51 | disposition home or self-care (01) ==
LOC: CT 08:50
PROVIDERS: PCP Family Medicine; Visit Provider Otolaryngology
DX: R59.0 Localized enlarged lymph nodes (principal)
CPT/HCPCS: 70490

== ENCOUNTER 2024-04-12 14:56 | Outpatient (RCR) | payer MEDICARE, MEDICAID, SELFPAY | END 2024-05-12 12:24 | disposition home or self-care (01) | LOC: ST 14:56 | PROVIDERS: PCP Family Medicine; Visit Provider Otolaryngology | DX: R49.0 Dysphonia (principal) | CPT/HCPCS: 92507; 92523 ==

== ENCOUNTER 2024-05-11 10:11 | Outpatient (OUT) | payer MEDICARE, MEDICAID, SELFPAY ==
[2024-05-11 11:18] LABS: Albumin Level 3.5 g/dL (3.4-5.0); Anion Gap 12.4; BUN Creatinine Ratio 23.4; C Reactive Protein 0.81 mg/dL (<=0.50); Carbon Dioxide 27.8 mmol/L (21.0-32.0); Chloride 105 mmol/L (98-107); Estimated GFR (African America 50 (>=60); Estimated GFR (Non-African Ame 41 (>=60); Glucose 108 mg/dL (74-106); Phosphorus 3.8 mg/dL (2.6-4.7); Potassium 4.2 mmol/L (3.5-5.1); Sodium 141 mmol/L (136-145)
[2024-05-11 11:22] LABS: Basophils Absolute Auto 0.1 10^3/uL (0.0-0.1); Basophils Percent Auto 1.5 % (0.2-2.0); Eosinophils Absolute Auto 0.5 10^3/uL (0.0-0.7); Eosinophils Percent Auto 6.8 % (0.9-7.0); Hematocrit 40.2 % (36.0-48.0); Hemoglobin 12.6 g/dL (12.0-16.0); Immature Granulocytes Abs Auto 0.02 10^3/uL (0.00-0.03); Immature Granulocytes Pct Auto 0.3 % (0.0-0.5); Lymphocytes Absolute Auto 1.6 10^3/uL (1.2-3.8); Lymphocytes Percent Auto 22.8 % (20.5-60.0); Mean Corpuscular HGB Conc 31.3 g/dL (29.9-35.2); Mean Corpuscular Hemoglobin 28.3 pg (26.7-34.0); Mean Corpuscular Volume 90.1 fL (81.0-99.0); Mean Platelet Volume 10.3 fL (9.5-13.5); Monocytes Absolute Auto 0.5 10^3/uL (0.3-0.8); Monocytes Percent Auto 7.1 % (1.7-12.0); Neutrophils Absolute Auto 4.4 10^3/uL (1.4-6.5); Neutrophils Percent Auto 61.5 % (43.0-75.0); Platelet Count 285 10^3/uL (150-450); Red Blood Count 4.46 10^6/uL (4.20-5.40); Red Cell Distribution Width 13.3 % (11.0-15.0); White Blood Count 7.2 10^3/uL (4.0-11.0)
[2024-05-11 12:00] LABS: Erythrocyte Sedimentation Rate 87 mm/hr (<=30)
== END 2024-05-11 10:12 | disposition home or self-care (01) ==
LOC: LAB 10:12
PROVIDERS: PCP Family Medicine
DX: T84.59XD Infection and inflammatory reaction due to other internal joint prosthesis, subsequent encounter (principal); Z80.9 Family history of malignant neoplasm, unspecified
CPT/HCPCS: 36415; 80069; 82378; 85025; 85652; 86140

== ENCOUNTER 2024-05-11 10:15 | Outpatient (OUT) | payer MEDICARE, MEDICAID, SELFPAY ==
[2024-05-12 13:10] LABS: CEA 1.1 ng/mL (0.0-4.7)
== END 2024-05-11 10:16 | disposition home or self-care (01) ==
LOC: LAB 10:15
PROVIDERS: PCP Family Medicine; Visit Provider Family Medicine
DX: Z80.9 Family history of malignant neoplasm, unspecified (principal)
CPT/HCPCS: 36415; 82378

== ENCOUNTER 2024-05-20 14:14 | Outpatient (OUT) | payer MEDICARE, MEDICAID, SELFPAY ==
[2024-05-20 14:41] LABS: Erythrocyte Sedimentation Rate 55 mm/hr (<=30)
[2024-05-20 14:42] LABS: C Reactive Protein <0.50 mg/dL (<=0.50)
== END 2024-05-20 14:15 | disposition home or self-care (01) ==
LOC: LAB 14:14
PROVIDERS: PCP Family Medicine
DX: T84.59XD Infection and inflammatory reaction due to other internal joint prosthesis, subsequent encounter (principal)
CPT/HCPCS: 36415; 85652; 86140

== ENCOUNTER 2024-06-16 14:33 | Outpatient (RCR) | payer MEDICARE, MEDICAID, SELFPAY | END 2024-08-09 10:07 | disposition home or self-care (01) | LOC: PT 14:33 | PROVIDERS: PCP Family Medicine | DX: Z96.652 Presence of left artificial knee joint (principal); M25.562 Pain in left knee | CPT/HCPCS: 97110; 97112; 97140; 97162; 97530 ==

== ENCOUNTER 2024-08-29 12:27 | Outpatient (OUT) | payer MEDICARE, MEDICAID, SELFPAY ==
[2024-08-29 14:26] LABS: Alanine Aminotransferase 14 U/L (14-59); Albumin Globulin Ratio 0.9; Albumin Level 3.3 g/dL (3.4-5.0); Alkaline Phosphatase 86 U/L (46-116); Anion Gap 13.6; Aspartate Amino Transferase 20 U/L (15-37); BUN Creatinine Ratio 24.4; Bilirubin Total 0.4 mg/dL (0.2-1.0); Calcium 8.6 mg/dL (8.5-10.1); Carbon Dioxide 25.8 mmol/L (21.0-32.0); Chloride 109 mmol/L (98-107); Estimated GFR (African America 52 (>=60 mL/min/1.73m^2); Estimated GFR (Non-African Ame 43 (>=60 mL/min/1.73m^2); Globulin 3.6 g/dL; Glucose 104 mg/dL (74-106); Potassium 4.4 mmol/L (3.5-5.1); Sodium 144 mmol/L (136-145); Total Protein 6.9 g/dL (6.4-8.2)
[2024-08-29 14:27] LABS: Chol HDL Ratio 3.5; Cholesterol 225 mg/dL (<=200); HDL Cholesterol 65 mg/dL (40-60); Triglycerides 117 mg/dL (<=150); Uric Acid 3.9 mg/dL (2.6-6.0); VLDL CHOLESTEROL 23.4 mg/dL
[2024-08-30 04:08] LABS: Vitamin B12 646 pg/mL (232-1245)
== END 2024-08-29 12:28 | disposition home or self-care (01) ==
LOC: LAB 12:27
PROVIDERS: PCP Family Medicine; Visit Provider Family Medicine
DX: E55.9 Vitamin D deficiency, unspecified (principal); T84.59XD Infection and inflammatory reaction due to other internal joint prosthesis, subsequent encounter; D63.1 Anemia in chronic kidney disease; E78.00 Pure hypercholesterolemia, unspecified; E53.8 Deficiency of other specified B group vitamins; E79.0 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 inflammatory arthritis and tophaceous disease
CPT/HCPCS: 36415; 80053; 80061; 82306; 82607; 82728; 82746; 83540; 84100; 84550; 85025; 85652; 86140

== ENCOUNTER 2024-08-29 12:33 | Outpatient (OUT) | payer MEDICARE, MEDICAID, SELFPAY ==
[2024-08-29 12:58] LABS: Basophils Absolute Auto 0.1 10^3/uL (0.0-0.1); Basophils Percent Auto 1.3 % (0.2-2.0); Eosinophils Absolute Auto 0.4 10^3/uL (0.0-0.7); Hematocrit 38.6 % (36.0-48.0); Hemoglobin 12.3 g/dL (12.0-16.0); Immature Granulocytes Abs Auto 0.02 10^3/uL (0.00-0.03); Immature Granulocytes Pct Auto 0.3 % (0.0-0.5); Lymphocytes Absolute Auto 1.6 10^3/uL (1.2-3.8); Lymphocytes Percent Auto 23.9 % (20.5-60.0); Mean Corpuscular HGB Conc 31.9 g/dL (29.9-35.2); Mean Corpuscular Hemoglobin 28.1 pg (26.7-34.0); Mean Corpuscular Volume 88.3 fL (81.0-99.0); Mean Platelet Volume 10.1 fL (9.5-13.5); Monocytes Absolute Auto 0.5 10^3/uL (0.3-0.8); Monocytes Percent Auto 7.5 % (1.7-12.0); Neutrophils Absolute Auto 4.1 10^3/uL (1.4-6.5); Platelet Count 230 10^3/uL (150-450); Red Blood Count 4.37 10^6/uL (4.20-5.40); Red Cell Distribution Width 13.9 % (11.0-15.0); White Blood Count 6.7 10^3/uL (4.0-11.0)
[2024-08-29 13:10] LABS: Erythrocyte Sedimentation Rate 46 mm/hr (<=30)
[2024-08-29 14:23] LABS: C Reactive Protein 1.15 mg/dL (<=0.50)
[2024-08-29 14:49] LABS: Phosphorus 3.3 mg/dL (2.6-4.7)
== END 2024-08-29 12:34 | disposition home or self-care (01) ==
LOC: LAB 12:33
PROVIDERS: PCP Family Medicine
DX: T84.59XD Infection and inflammatory reaction due to other internal joint prosthesis, subsequent encounter (principal)
CPT/HCPCS: 36415; 84100; 84681; 85025; 85652; 86140

== ENCOUNTER 2024-09-26 14:34 | Outpatient (OUT) | payer MEDICARE, MEDICAID, SELFPAY ==
--- NOTE | 2024-09-26 | XR_ITS ---
The [address] [address] Patient Name: CASTILLO GRAHAM MRN: [id number] date: 1955 Sex: F Assigned Patient Location: Current Patient Location: Accession/Order Number: [id number] Exam Date: 09/26/2024 14:35 Report Date: 09/30/2024 07:59 At the request of: PATRICIA CHOUDHARY Procedure: XR knee LT 4V PROCEDURE: XR knee LT 4V COMPARISON: 03/15/2023. HISTORY: LEFT KNEE PAIN FINDINGS: BONES:Stable total knee arthroplasty. No acute fracture, dislocation or mechanical failure SOFT TISSUES:Negative. No visible soft tissue swelling. EFFUSION:Small joint effusion OTHER: Negative. XR/XR knee LT 4V IMPRESSION: Stable knee arthroplasty with small joint effusion Electronically authenticated by: ANUSHA AGUERO Date: 09/30/2024 07:59
== END 2024-09-26 14:35 | disposition home or self-care (01) ==
LOC: EC 14:34
PROVIDERS: PCP Family Medicine; Visit Provider Student in an Organized Health Care Education/Training Program
DX: M25.562 Pain in left knee (principal); Z96.652 Presence of left artificial knee joint; M25.462 Effusion, left knee
CPT/HCPCS: 73564

== ENCOUNTER 2024-10-21 10:38 | Outpatient (OUT) | payer MEDICARE, MEDICAID, SELFPAY ==
--- NOTE | 2024-10-21 10:40 | MM_ITS ---
Patient Name: CASTILLO GRAHAM MR#: [id number] : 1955 Exam Date: 10/21/2024 Ordering Doctor: DR PETER ZHOU D.O. RADIOLOGY REPORT PROCEDURE: MM TOMOSYNTHESIS SCREENING BI COMPARISON: MM TOMOSYNTHESIS SCREENING BI, 09/09/2023. MG MAMM SCREEN NYLA W CAD, 07/09/2020. INDICATIONS: Screening Calculator Name NCI Breast Cancer Risk Assessment Tool 5 Year Breast Cancer Risk 1.90% Lifetime Breast Cancer Risk 5.90% Personal Breast Cancer No Personal Ovarian Cancer No Treatments None Family Cancers None LOCATION: The [facility] BREAST COMPOSITION: The breasts are almost entirely fatty. FINDINGS: DIAGNOSTIC CATEGORY 1--NEGATIVE. NO CHANGE FROM COMPARISON ASSESSMENT. Scattered benign-appearing calcifications are present. Scattered benign-appearing lymph nodes are present. RIGHT BREAST: No significant suspicious finding. LEFT BREAST: No significant suspicious finding. RECOMMENDATIONS: ROUTINE MAMMOGRAM AND CLINICAL EVALUATION IN 12 MONTHS. PLEASE NOTE: A NORMAL MAMMOGRAM DOES NOT EXCLUDE THE POSSIBILITY OF BREAST CANCER. A CLINICALLY SUSPICIOUS PALPABLE LUMP SHOULD BE BIOPSIED. Dictated by: Reagan Whiteside MD on 10/21/2024 at 12:41 Approved by: Reagan Whiteside MD on 10/21/2024 at 12:42
== END 2024-10-21 10:39 | disposition home or self-care (01) ==
LOC: MAMMO 10:38
PROVIDERS: PCP Family Medicine; Visit Provider Family Medicine
DX: Z12.31 Encounter for screening mammogram for malignant neoplasm of breast (principal)
CPT/HCPCS: 77063; 77067

== ENCOUNTER 2024-10-21 11:11 | Outpatient (OUT) | payer MEDICARE, MEDICAID, SELFPAY ==
[2024-10-21 11:57] LABS: Basophils Absolute Auto 0.1 10^3/uL (0.0-0.1); Basophils Percent Auto 1.5 % (0.2-2.0); Eosinophils Absolute Auto 0.7 10^3/uL (0.0-0.7); Eosinophils Percent Auto 7.5 % (0.9-7.0); Hematocrit 40.5 % (36.0-48.0); Hemoglobin 12.7 g/dL (12.0-16.0); Immature Granulocytes Abs Auto 0.03 10^3/uL (0.00-0.03); Immature Granulocytes Pct Auto 0.3 % (0.0-0.5); Lymphocytes Absolute Auto 1.7 10^3/uL (1.2-3.8); Lymphocytes Percent Auto 19.9 % (20.5-60.0); Mean Corpuscular HGB Conc 31.4 g/dL (29.9-35.2); Mean Corpuscular Hemoglobin 28.2 pg (26.7-34.0); Mean Corpuscular Volume 89.8 fL (81.0-99.0); Mean Platelet Volume 11.2 fL (9.5-13.5); Monocytes Absolute Auto 0.6 10^3/uL (0.3-0.8); Monocytes Percent Auto 7.4 % (1.7-12.0); Neutrophils Absolute Auto 5.5 10^3/uL (1.4-6.5); Neutrophils Percent Auto 63.4 % (43.0-75.0); Platelet Count 235 10^3/uL (150-450); Red Blood Count 4.51 10^6/uL (4.20-5.40); Red Cell Distribution Width 14.2 % (11.0-15.0); White Blood Count 8.7 10^3/uL (4.0-11.0)
[2024-10-21 12:37] LABS: C Reactive Protein 0.66 mg/dL (<=0.50)
[2024-10-21 13:15] LABS: Erythrocyte Sedimentation Rate 47 mm/hr (<=30)
== END 2024-10-21 11:12 | disposition home or self-care (01) ==
LOC: LAB 11:11
PROVIDERS: PCP Family Medicine; Visit Provider Student in an Organized Health Care Education/Training Program
DX: M25.562 Pain in left knee (principal); T84.84XA Pain due to internal orthopedic prosthetic devices, implants and grafts, initial encounter; Z96.659 Presence of unspecified artificial knee joint
CPT/HCPCS: 36415; 85025; 85652; 86140

== ENCOUNTER 2025-01-03 15:06 | Outpatient (OUT) | payer MEDICARE, MEDICAID, SELFPAY ==
[2025-01-03 15:24] LABS: Basophils Absolute Auto 0.1 10^3/uL (0.0-0.1); Basophils Percent Auto 1.3 % (0.2-2.0); Eosinophils Absolute Auto 0.6 10^3/uL (0.0-0.7); Eosinophils Percent Auto 8.1 % (0.9-7.0); Hemoglobin 11.9 g/dL (12.0-16.0); Immature Granulocytes Abs Auto 0.02 10^3/uL (0.00-0.03); Immature Granulocytes Pct Auto 0.3 % (0.0-0.5); Lymphocytes Absolute Auto 1.8 10^3/uL (1.2-3.8); Lymphocytes Percent Auto 22.7 % (20.5-60.0); Mean Corpuscular HGB Conc 31.3 g/dL (29.9-35.2); Mean Corpuscular Hemoglobin 28.1 pg (26.7-34.0); Mean Corpuscular Volume 89.8 fL (81.0-99.0); Mean Platelet Volume 10.6 fL (9.5-13.5); Monocytes Absolute Auto 0.9 10^3/uL (0.3-0.8); Monocytes Percent Auto 11.2 % (1.7-12.0); Neutrophils Absolute Auto 4.5 10^3/uL (1.4-6.5); Neutrophils Percent Auto 56.4 % (43.0-75.0); Platelet Count 210 10^3/uL (150-450); Red Blood Count 4.23 10^6/uL (4.20-5.40); Red Cell Distribution Width 14.3 % (11.0-15.0); White Blood Count 7.9 10^3/uL (4.0-11.0)
[2025-01-03 15:38] LABS: Erythrocyte Sedimentation Rate 35 mm/hr (<=30)
[2025-01-03 15:56] LABS: Albumin Level 2.9 g/dL (3.4-5.0); BUN Creatinine Ratio 17.4; Calcium 8.6 mg/dL (8.5-10.1); Carbon Dioxide 27.7 mmol/L (21.0-32.0); Chloride 107 mmol/L (98-107); Estimated GFR (African America 57 (>=60 mL/min/1.73m^2); Estimated GFR (Non-African Ame 47 (>=60 mL/min/1.73m^2); Glucose 103 mg/dL (74-106); Phosphorus 3.5 mg/dL (2.6-4.7); Potassium 3.7 mmol/L (3.5-5.1); Sodium 143 mmol/L (136-145)
== END 2025-01-03 15:07 | disposition home or self-care (01) ==
LOC: LAB 15:06
PROVIDERS: PCP Family Medicine
DX: T84.59XD Infection and inflammatory reaction due to other internal joint prosthesis, subsequent encounter (principal)
CPT/HCPCS: 36415; 80069; 85025; 85652; 86140

== ENCOUNTER 2025-01-24 10:14 | Outpatient (OUT) | payer MEDICARE, MEDICAID, SELFPAY ==
--- NOTE | 2025-01-24 10:18 | US_ITS ---
The [address] [address] Patient Name: CASTILLO GRAHAM MRN: [id number] date: 1955 Sex: F Assigned Patient Location: [place] Current Patient Location: [place] Accession/Order Number: [id number] Exam Date: 01/24/2025 12:07 Report Date: 01/24/2025 12:12 At the request of: LEAH BARRERA MD Procedure: US thyroid Thyroid ultrasound Reason for exam: Multinodular goiter. Comparison: Thyroid ultrasound 01/27/2024 Technique: Grayscale and color Doppler images of the thyroid gland were obtained. Findings: Right lobe 5.0 x 1.5 x 1.8 cm. Left lobe measures 4.6 x 1.8 x 1.6 cm. The thyroid gland is overall heterogenous in echotexture without hyperemia on color Doppler imaging. Multiple nodules are noted, largest measuring 13 x 12 x 13 involving the inferior pole of the right lobe. Finding is unchanged from the prior study. No new suspicious nodule is seen. Benign-appearing lymph node is seen involving the right neck measuring 14 x 6 x 4 mm. A similar-appearing lymph node is seen involving the left neck measuring 19 x 10 x 6 mm. US/US thyroid Impression: Multinodular goiter with dominant nodule involving the inferior pole of the right lobe unchanged measuring 13 x 12 x 13 mm. Benign-appearing lymph nodes involving the neck. A similar process is seen on the prior study from 2023. Impression dictated by: Carlos Tate Jr., D.O.01/24/2025 12:12 PM Dictation Location: [place] [address] Electronically authenticated by: [id number] Date: 01/24/2025 12:12
== END 2025-01-24 10:15 | disposition home or self-care (01) ==
LOC: US 10:14
PROVIDERS: PCP Family Medicine; Visit Provider Otolaryngology
DX: E04.2 Nontoxic multinodular goiter (principal)
CPT/HCPCS: 76536

== ENCOUNTER 2025-04-11 11:44 | Outpatient (OUT) | payer MEDICARE, MEDICAID, SELFPAY ==
--- OUTSIDE RECORDS SUMMARY | 2014-03-22 10:00 | XMS_ITS | Continuity of Care Document ---
Author Organization [employer] [facility] Address [address] [place] [address] [place] [address] Phone Care Team Providers Care Fabric Designer Name Role Phone Pavel Napoles MD Unavailable Unavailable Procedures Procedure Date OFFICE/OUTPATIENT VISIT, [facility] OFFICE/OUTPATIENT VISIT, [facility] Advance Directives Directive Yes / No Effective Date File Name No Information Encounters Encounter Description Practice Location Reason(s) For Visit Diagnoses Date Provider Providers Copied on Encounter OFFICE/OUTPATI ENT VISIT, [facility] [employer] [facility], [address] [place] [address], [id number], tel:[phone] [facility] No Information Dony Zhao. [address] [place] [address], [id number], [place]. tel:[phone] Referring Provider: Pavel Trujillo, [address] [place] [address], [address]. tel:[phone] OFFICE/OUTPATI ENT VISIT, [facility] [employer] [facility], [address] [place] [address], [id number], tel:[phone] [facility] No Information Dony Zhao. [address] [place] [address], [id number], [place]. tel:[phone] Referring Provider: Pavel Trujillo, [address] [place] [address], [id number]. tel:[phone] Family History Family Member Type Diagnosis Age At Onset No Information Payers Payer name Insurance type Covered democrat ID Authoriza tinapoleon(s) Medicare [id number] [place] [id number] Social History Type Description Quantity Date Captured [...]
--- OUTSIDE RECORDS SUMMARY | 2022-08-19 08:02 | XMS_ITS | Continuity of Care Document ---
Author Organization [facility] Address [address] [place] [address] Phone Care Team Providers Care Palletizer Operator Name Role Phone Sury Novoa MD Unavailable [...] Providers Copied on Encounter [facility], [address], [place], [id number], [place] tel:[phone] [facility] [place] No Information [address] [place] [address] [facility], [place], [place], [id number], [place]. tel:[phone] Referring Provider: Conrad MCMULLEN, [address], [place], [address]. tel:[phone] Offic Cons New/estab Mod-hi 60 [facility] [place], [address], [place], [id number], [place] tel:[phone] [facility] [place] Body mass index (BMI) 45.0-49.9, adultChronic venous hypertension w oth comp of r low extremLocalized edemaVenous insufficiency (chronic) (peripheral)Pers onal history of other venous thrombosis and embolism 2 Ana Phillips. [address] [facility], [place], [place], [id number], [place]. tel:[phone] Referring Provider: Conrad MCMULLEN, [address] [facility] [address], [place], [address]. tel:[phone] [facility] [place], [address], [place], [id number], [place] tel:[phone] [facility] Chronic venous htn w oth comp of bilateral low extrm [address] [place] [place] [address] [place], [place], [id number], [place]. tel:[phone] Referring Provider: Conrad MCMULLEN, [address], [place], [address]. tel:[phone] Family History Family Member Type Diagnosis Age At Onset No Information Payers Payer name Insurance type Covered republican ID Authoriza tinapoleon(s) Aetna Medicare [place] [id number] Social History Type Description Quantity Date Captured [...] Information Instructions Date Instruction Additional Infor mation Patient education booklet given Related to Chrn Vns Hyprtnsn w/Compl (Pain Edema Swelling); RIGHT Giving Encouragement to Exercise Related to Body mass index [BMI] 45.0-49.9, adult Diet education Related to Body mass index [BMI] 45.0-49.9, adult Assessments Type Assessment Date No Information Patient Care Teams Name Effective Dates (start - stop) Status Members No Information
--- OUTSIDE RECORDS SUMMARY | 2024-06-06 06:17 | XMS_ITS | Continuity of Care Document ---
Author Organization [facility] Address [address] [place] [address] Phone Care Team Providers Care Fire Protection Inspector Name Role Phone Reagan Ramos MD Unavailable Unavailable Allergies, Adverse Reactions, Alerts Substance Reaction Status Criticality Sulfa (Sulfonamide Antibiotics) Hives, Rash, Swelling Active No Information Penicillins Hives, Rash, Swelling Active No Inf ormation latex Hives, Rash, Swelling Active No Inf ormation aspirin Hives, Rash, Swelling Active No Inf ormation Medications Medication Instructions Dosage Effective Dates (start - stop) Status Comments Percocet 5 mg-325 mg tablet take 1 tablet by oral route every 6 hours as needed 1 tablet - Active Procedures Procedure Date Office/outpatient visit,est, mod 2023 Drain Or inject major jointor bursa Lidocaine injection 1% Office/outpatient visit,est, mod 2023 X-ray exam of knee, 3 views Office/outpatient visit,est, low 2022 Drain Or inject major jointor bursa Postop followup visit X-ray exam of knee, 3 views Revise knee joint replacement Incise knee joint for infection 023 PA Revise Knee Joint Replacement 2022 PA Incision Knee Joint For Infection Mar Drain Or inject major jointor bursa Postop followup visit Intermittent Compression Device - SELF P AY Revise knee joint replacement 2 PA Revise Knee Joint Replacement 2021 PT EVAL LOW COMPLEX 20 MIN Therapeutic activities (one on one) Physical Tx exercise Office/outpatient visit,est, mod 2021 X-RAY EXAM HIP UNI 2-3 VIEWS Office/outpatient visit,est, mod 2021 Drain/inject major jointor bursa 2021 Triamcinolone acetonide inj Office/outpatient visit,est, mod 2021 Office/outpatient visit,est, mod 2021 X-ray exam of knee, 3 views X-RAY EXAM HIP UNI 2-3 VIEWS Drain/inject major jointor bursa 2021 Advance Directives Directive Yes / No Effective Date File Name No Information Encounters Encounter Description Practice Location Reason(s) For Visit Diagnoses Date Provider Providers Copied on Encounter [facility], [address] [place] [address], [facility], tel:[phone] [facility] No Information 4 Richard Kirk. [address] [place] [address], [address], [place]. tel:[phone] Referring Provider: Reagan Anand, [address] [place] [address], [address]. tel:[phone] Office/outpa tient visit,est, mod [facility] [address], [address], [place] tel:[phone] [facility] Pain, joint, knee, leftPresence of left artificial knee jointPresence of left artificial knee jointPain, joint, knee, left 4 Ignacio Dietrich. [address] [place] [address], [address], [id number] , [place]. tel:[phone] Referring Provider: Reagan Anand, [address] [place] [address], [address]. tel:[phone] Office/outpa tient visit,est, mod [facility], [address] [place], [address], [place] [phone] JIS [address] Presence of left artificial knee jointUnilateral primary osteoarthritis, left knee Berry-0 4 Richard Kirk. [address] [facility], [address], [place], [address], [place]. tel:[phone] Referring Provider: Reagan Anand, [address] [place] [address] [address], [place], [address]. tel:[phone] Office/outpa tient visit,est, low [facility], [address] [place], [address], [place] tel:[phone] [address] [place] Presence of left artificial knee jointUnilateral primary osteoarthritis, left knee Oct-2 3 Ignacio Dietrich. [address] [place] [address], [address], [place], [place], [id number] , [place]. tel:[phone] Referring Provider: Kaur Goldman, [address] [place] [address] [address], [place], [address] . tel:[phone] [facility], [place], [address], [place] tel:[phone] 700 [address] Presence of left artificial knee jointUnilateral primary osteoarthritis, left knee Sep-2 3 Richard Kirk. [address] [facility], [address], [place], [address], [place]. tel:[phone] [facility], [place], [address], [place] tel:[phone] J[facility] [place] Presence of left artificial knee jointUnilateral primary osteoarthritis, left knee Sep-1 3 Ignacio Dietrich. [address] [facility], [address], [place], [place], [id number] , [place]. tel:[phone] Referring Provider: Reagan Anand, [address] [place] [address] [address], [place], [address]. tel:[phone] [facility], [address] [place], [address], [place] tel:[phone] [facility] Presence of left artificial knee jointUnilateral primary osteoarthritis, left knee Sep- 3 Ignacio Dietrich. [address] [place] [address], [address], [place], [place], [id number] , [place]. tel:[phone] Referring Provider: Reagan Anand, [address] [place] [address] [address], [place], [address]. tel:[phone] [facility], [place], [address], [place] [phone] [facility] No Information 3 Richard Kirk. [address] [place] [address], [address], [place], [address], [place]. tel:[phone] Referring Provider: Reagan Anand, [address] [place] [address] [address], [place], [address]. tel:[phone] [facility], [place], [address], [place] [phone] [facility] No Information 3 Ignacio Dietrich. [address] [place] [address], [facility] [address], [place], [place], [id number] , [place]. tel:[phone] Referring Provider: Reagan Anand, [address] [place] [address] [address], [place], [address]. tel:[phone] [facility], [place], [address], [place] [phone] [facility] Infection of prosthetic knee joint, initial encounter 3 Mao Peacock. [address] [place] [address], [address], [place], [place], [id number] , [place]. tel:[phone] [facility], [place], [address], [place] tel:[phone] [address] [place] [address] Primary osteoarthritis of left kneePresence of left artificial knee jointPrimary osteoarthritis of left kneePain, joint, knee, left 3 Mao Peacock. [address] [place] [address], [address], [id number] , [place]. [phone] Referring Provider: Reagan Anand, [address] [place] [address] [place] [address], [address]. tel:[phone] [facility], [address] [place] [address], [facility], [place] tel:[phone] [facility] Presence of left artificial knee jointEncounter for other orthopedic aftercareInstabi lity of internal left knee prosthesis, subs encntr 3 Richard Kirk. [address] [place] [address], [address] [place] [address], [address], [place]. tel:[phone] Referring Provider: Reagan Anand, [address] [place] [address] Suite [facility], [place], [address]. tel:[phone] [facility] [address], [facility], [place] tel:[phone] [address] [place] [address] Presence of left artificial knee jointEncounter for other specified surgical aftercareInstabi lity of internal left knee prosthesis, subs encntr 3 Richard Kirk. [address] [place] [address], [address] [place] [address], [address], [place]. [phone] Referring Provider: Conrad Harrell, [address] [place], [address] . tel:[phone] [facility] [address], [facility], [place] tel:[phone] [facility] No Information 2 Richard Kirk. [address] [place] [address], [address] [place] [address], [address], [place]. tel:[phone] Referring Provider: Reagan Anand, [address] [place] [address] [address], [place], [address]. tel:[phone] [facility], [address] [place], [address], [place] tel:[phone] [facility] No Information 2 Richard Kirk. [address] [place] [address], [address], [place], [address], [place]. tel:[phone] Referring Provider: Reagan Anand, [address] [place] [address] [address], [place], [address]. tel:[phone] [facility], [address] [place], [address], [place] tel:[phone] [facility] No Information 2 Patricia Gonzalez. [address] [facility], [facility] [address], [facility] [place], [id number] , [place]. [phone] Referring Provider: Reagan Anand, [address] [place] [address] [address], [place], [address]. tel:[phone] [facility], [address] [place], [address], [place] tel:[phone] [facility] No Information 2 Constantino Kaur. [address] [place], [address], [place]. [phone] Referring Provider: Reagan Anand, [address] [place] [address] [address], [place], [address]. tel:[phone] [facility], [address] [place], [address], [place] tel:[phone] [address] Mechanical loosening of internal left knee prosthetic joint, subsequent encounter Dec- 2 Richard Kirk. [address] [place] [address], [address], [place], [address], [place]. tel:[phone] Referring Provider: Conrad Harrell, [address] [place], [address] . tel:[phone] Office/outpa tient visit,est, mod [facility], [address] [place], [place], [facility], [place] tel:[phone] JIS Christiano Duong Presence of left artificial knee jointMechanical loosening of internal left knee prosthetic joint, subsequent encounterTrochan teric bursitis, left hipMech compl of internal left knee prosthesis, init encntr 2 Richard Kirk. [address] [place] [address], [address], [place], [address], [place]. tel:[phone] Referring Provider: Conrad Harrell, [address] [place], [address] . tel:[phone] Office/outpa tient visit,est, [facility], [address] [place], [place], [facility], [place] tel:[phone] JISid Duong Trochanteric bursitis, left hip Jun- 2 Richard Kirk. [address] [place] [address], [address], [place], [address], [place]. tel:[phone] Referring Provider: Reagan Anand, [address] [place] [address] Suite [facility], [place], [address]. tel:[phone] Office/outpa tient visit,est, [facility], [facility] [place], [place], [facility], [place] tel:[phone] JISid Duong Trochanteric bursitis, left hipTrochanteric bursitis, left hip Aug- 2 Richard Kirk. [address] [place] [address], [address], [place], [address], [place]. tel:[phone] Referring Provider: Reagan Anand, [address] [place] [address] Suite [facility], [place], [address]. tel:[phone] Office/outpa tient visit,est, [facility], [facility] [place], [place], [facility], [place] tel:[phone] J[facility] [place] Pain, joint, knee, leftPresence of total left knee joint prosthesisUnilat eral primary osteoarthritis, left hipLeft hip painEffusion, left knee 2 Richard Kirk. [address] [facility], [address], [place], [place], [facility], . tel:[phone] Referring Provider: Reagan Anand, [address] [facility] [address], [place], [facility]. tel:[phone] Family History Family Member Type Diagnosis Age At Onset No Information Payers Payer name Insurance type Covered libertarian ID Jaida rod(s) Ral[place] Medicare - [id number] Medicaid [facility] [id number] Social History Type Description Quantity Date Captured Comments Alcohol Use Details Unknown Caffeine Use Details Unknown Tobacco Use Status No Information Smoking Status No Information Sex Female Chief Complaint And Reason For Visit No Information Reason For Referral Reason For Referral No Information Plan Of Treatment Date Type Action Status Referral Referred To: DME LTKA Rev Ordered: Referrals: DME LTKA Rev ordered Future Order: Lab Order C-Reacti ve Protein ([id number]), Added on: New Future Order: Lab Order Sediment ation Rate-Westergren ([id number]), Ordered on: Ordered Future Order: Lab Order C-Reacti ve Protein, Quant ([id number]), Ordered on: Ordered Future Order: Lab Order CBC With Differential/Platelet ([id number]), Ordered on: Ordered Future Order: Radiology Order As piration of knee, Left (), Added on: New Future Order: Lab Order Anaerobi c And Aerobic Culture ([id number]), Ordered on: Ordered Future Order: Lab Order Cell Cou nt, Synovial Fluid Without Crystals ([id number]), Ordered on: Ordered Future Order: Lab Order AFB Cult ure And Smear, Broth ([id number]), Ordered on: Ordered History Of Present Illness Encounter Date Complaint History Of Prese nt Illness Follow Up Left Knee Modifying Fa ctors: Previous Surgery: LK poly exchange DAC 10/02/22. Previous Surgery: LTKA 12/25/2014 Dr Alberts. Previous Surgery: RTKA 08/17/2017 Dr Alberts. Comments: Patient fell out of bed two weeks ago and landed on her knees. She went to the emergency room on 03/15/23 and [facility] said there wasn't a fracture present on imaging. Lab work was done and values were elevated. Patient is taking percocet 5-325 twice a day-prescribed by pain management for her spine. She was discharged from therapy in January and advised to continue HEP. She complains of pain to the lateral knee and around the patella. Using a walker in office. Post-Op Left Knee Modifying Fact ors: Previous Surgery: LK poly exchange DAC 10/02/22. Comments: Patient has ongoing soreness complaining of soreness at the lateral aspect of the left hip following her LK poly exchange and is concerned that her left leg points out. She is having difficulty achieving full extension in physical therapy which she is otherwise tolerating well. Patient is using a walker for ambulation. Follow Up Left Hip Comments: Arabella infante presents today for left hip follow up. She states that while she was in PT she was doing great and the pain resolved she states that once the she started to do the exercises on her own the pain returned. She states that she take arthritis medication. New Problem Left Hip Comments: Edwin garcia presents today for left hip evaluation. She complains of pain in the lower back since August of last year. She states that most of her pain is in the lower back and will radiate to the lateral thigh and groin area. She states that she had a bursal injection in October with no relief. She stats that she is having difficulty walking and has pain consistency. New Problem Left Knee Location: Left whole knee. Severity: Moderate. Current pain level: 6/10. Duration: 9 months. Quality: Dull. Achy. Timing: Wakes you up at night? Yes. Pain prevents you from falling asleep? Yes. Pain after walking awhile? Yes. Associated Symptoms: Catching? Yes. Clicking? Yes. Stiffness? Yes. Swelling? Yes. Context: Difficulty ascending stairs? Yes. Difficulty descending stairs? Yes. Comments: Patient states pain in left knee, saw Dr Desai, he states she has abnormal labs and referred to our office. She did have injection in her left hip 1-2 months ago. Scheduled for LUIS MANUEL injection within the next few days. Functional Status Date Functional Assessmen t No Information Instructions Date Instruction Additional Infor mation No Information Assessments Type Assessment Date No Information Patient Care Teams Name Effective Dates (start - stop) Status Members No Information
--- OUTSIDE RECORDS SUMMARY | 2025-02-20 06:00 | XMS_ITS ---
Author Organization [facility] Address [address] [place] [address] Care Team Providers Care Fabricating Machine Operator Name Role Phone Conrad Sosa DO Primary Care Provider Unavail able Marshall Bryan Unavailable [phone] Reason For Referral Reason PLEASE SCHEDULE SAYRA NULL APPT WITH DR MYRANDA JOEL Diagnosis 1 Pain due to internal orthopedic prosthetic devices, implants and grafts, initial encounter (T84.84XA) Referral Organization [facility] Referring Provider First Name Nick Referring Provider Last Name Sonal Referring Provider Speciality Physician Digital Press Operator Referred Organization [facility] Referral Dept General Notes Myriam Coulter 10:54:17 AM >FAXED TO [facility] REFERRAL DEPT Referral Priority Routine REASON FOR VISIT Left Hip IA 01/05/25, Left hip pain Medications Medication SIG (Take, Route, Fr equency, Duration) Notes Start Date End Date Status Zanaflex Not-Taking allopurinol Active magnesium oxide Acti ve gabapentin Active Fosamax Active bumetanide Active Symbicort Not-Taking Mounjaro Not-Taking topiramate Not-Takin g pantoprazole Active temazepam Active Topamax Active oxyCODONE Active cefdinir Active albuterol Not-Taking Social History Tobacco Use: Social History Observation Description Date Details (start date - stop date) Never Smoker NA - NA AUDIT-C (Standard) Question Answer Notes Did you have a drink containing alcohol in the p ast year? No Points 0 Interpretation Negative Tobacco Control (Standard) Question Answer Notes Tobacco use: Nonsmoker Vital Signs Height 63 in 02/20/2025 Weight 212 lbs 02/20/2025 BMI 37.55 02/20/2025 Encounters Encounter Location Date Provider Diagnosis [facility] [address] [place] [address] 02/20/2025 Marshall Bryan Pain due to internal orthopedic prosthetic devices, implants and grafts, initial encounter T84.84XA ; Unilateral primary osteoarthritis, left hip M16.12 and Presence of left artificial knee joint Z96.652 Assessments Encounter Date Diagnosis (ICD Code) Assessment Notes Treatment Notes Treatment Clinical Notes Section Notes 02/20/2025 Pain due to internal orthopedic prosthetic devices, implants and grafts, initial encounter (ICD-10 - T84.84XA) Left hip pain Left hip osteoarthritis Painful left total knee arthroplasty 02/20/2025 Unilateral primary osteoarthritis , left hip (ICD-10 - M16.12) Left hip pain Left hip osteoarthritis Painful left total knee arthroplasty 02/20/2025 Presence of left artificial knee joint (ICD-10 - Z96.652) Left hip pain Left hip osteoarthritis Painful left total knee arthroplasty 02/20/2025 Other Discussed treatment options with patient. At this time patient's hip and knee pain appear to be primarily associated with her hip osteoarthritis. She is not getting better with nonsurgical management. 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 At this time I discussed with patient that she would benefit from referral to a tertiary care center in order to discuss possible surgical options given her higher risk of perioperative infection. Will refer her to [facility] at this time. Ice and anti-inflammatory as needed for pain. Activity modification as needed for pain. Weightbearing as tolerated. All questions and concerns were addressed. Patient was in agreement with the treatment plan. Will plan to see the patient back on as-needed basis. Left hip pain Left hip osteoarthritis Painful left total knee arthroplasty Plan Of Treatment Treatment Notes Assessment Notes Other Discussed treatment options with patient. At this time patient's hip and knee pain appear to be primarily associated with her hip osteoarthritis. She is not getting better with nonsurgical management. 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 At this time I discussed with patient that she would benefit from referral to a tertiary care center in order to discuss possible surgical options given her higher risk of perioperative infection. Will refer her to [facility] at this time. Ice and anti-inflammatory as needed for pain. Activity modification as needed for pain. Weightbearing as tolerated. All questions and concerns were addressed. Patient was in agreement with the treatment plan. Will plan to see the patient back on as-needed basis. Referrals Referral Date Details 02/20/2025 02/20/2025, PLEASE S DANY CHONG AN APPT WITH DR MYRANDA JOEL, Next Appt Details Follow Up: REFER TO DR MYRANDA JOEL AT [facility], Reason: Progress Notes * JOSÉ GRAHAMOB:1955 ( 69 yo F)Acc No.[id number]:02/20/2025 Progress Notes Patient: CASTILLO FRENCH Provider: Lin Bryan MD :1955 A ge:69 Y S ex:Female Date:02/20/2025 Address:[address] [place], [place] [id number] Pcp:Conrad Sosa DO Subjective: * Chief Complaints: * 1 . Left Hip IA 01/05/25. 2. Left hip pain. * HPI: H PI: Patient is a 69-year-old female who presents for follow-up evaluation left hip pain. Patient has been experiencing hip pain for several years with worsening over the last year. Pain is sharp and severe in nature. Pain is worse with standing and walking. Pain improves with rest. Patient does have history of prior left total knee arthroplasty approximately 8 years ago with revision in September 2022. She states 5 months after her initial total knee arthroplasty she was diagnosed with a periprosthetic infection. She did undergo I&D with polyethylene exchange. She states her surgeries were performed in [place]. She states over the last 2 years she has been on chronic suppression antibiotics with Dr. Colt Bryan infectious disease. She denies any new redness or drainage from her knee. Pain has been waking her at night in her hip. She ambulates without a brace or assistive device. She has been taking Tylenol or Percocet for chronic pain. She is currently on doxycycline. She tried a course of physical therapy with minimal relief. She does have borderline diabetes. Denies history of VTE. Arthrocentesis left knee from 11/14/2024 demonstrated 156 WBCs with 28% PMNs and negative cultures. Patient did undergo a hip intra-articular injection 01/05/2025 which gave her a couple weeks of relief. * Medical History: * Social History: E xercise regularly D o you exercise? N o. W hat is your place of residence? W here do you live? P rivate home. A ABEL-C (Standard) D id you have a drink containing alcohol in the past year? N o, P oints 0 , I nterpretation N egative. T obacco Control (Standard) T obacco use: N onsmoker. * Medications: T aking oxyCODONE , Taking cefdinir , Taking temazepam , Taking Topamax , Taking pantoprazole , Taking bumetanide , Taking allopurinol , Taking magnesium oxide , Taking gabapentin , Taking Fosamax , Not-Taking/PRN albuterol , Not-Taking/PRN Symbicort , Not-Taking/PRN Mounjaro , Not-Taking/PRN topiramate , Not-Taking/PRN Zanaflex Objective: * Vitals: H t: 63 in, Wt: 212 lbs, BMI:37.55. * Examination: G eneral examination: G eneral exam: Patient is a well-appearing female resting comfortably no acute distress. Patient is awake alert and oriented x 3. Normal mood and affect. Ambulates with antalgic gait. X -ray Imaging Studies: A P pelvis and 2 views left hip reviewed from 11/28/2024. Radiographs demonstrate complete loss of left hip joint space with subchondral sclerosis and periarticular osteophytes. Central wear pattern. Right hip demonstrates moderate degenerative changes. No acute fracture or dislocation. L eft Lower Extremity: M idline scar with no erythema or drainage. Mild edema. No effusion. Mild tenderness to palpation anterior knee. No tenderness to palpation lateral joint line or medial joint line. Knee range of motion 0 to 120 degrees. Knee stable varus valgus stress. Stable anterior posterior drawer. Patella tracking centrally. 5 out of 5 quad strength. Motor intact TA, GSC, EHL, FHL. Sensation intact to light touch SPN, DPN, sural, saphenous, tibial nerve distribution. 2+ DP pulse. Toes well-perfused. No calf pain. Negative Homans. Mild discomfort with hip range of motion. Hip range of motion forward flexion 90 degrees, internal rotation 5 degrees, external rotation 30 degrees. Reproduction of hip and knee pain with hip range of motion. Assessment: * Assessment: 1. P ain due to internal orthopedic prosthetic devices, implants and grafts, initial encounter - T84.84XA (Primary) 2 . U nilateral primary osteoarthritis, left hip - M16.12? 3. P resence of left artificial knee joint - Z96.652 Left hip pain Left hip osteoarthritis Painful left total knee arthroplasty Plan: * Treatment: 2. O thers Notes: Discussed treatment options with patient. At this time patient's hip and knee pain appear to be primarily associated with her hip osteoarthritis. She is not getting better with nonsurgical management. 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 At this time I discussed with patient that she would benefit from referral to a tertiary care center in order to discuss possible surgical options given her higher risk of perioperative infection. Will refer her to [facility] at this time. Ice and anti-inflammatory as needed for pain. Activity modification as needed for pain. Weightbearing as tolerated. All questions and concerns were addressed. Patient was in agreement with the treatment plan. Will plan to see the patient back on as-needed basis. * Preventive Medicine: MIPS Measures: C MS139 Fall Risk S creening: N o falls in the past year.? Screenings: F all Risk Screening F all Risk Assessment: N o falls in the past year. JOEL Screening: F ALLS: Screening for Future Fall Risk H ave you had two or more falls in the past year? N o, H ave you had any falls with injury in the past year? N o.? * Follow Up: Lin WILSON TO DR MYRANDA JOEL AT [facility] Forms: * Images: * Electronic signature of Marshall Bryan MD on 04/11/2025 at 11:52 AM EDT Sign off status: Pending * Provider: Lin Bryan MD Date: 0 02/20/2025 Generated for Sultanai medardo/Marah/Amysmitting on: 0 04/11/2025 11:52 AM EDT History and Physical Notes * HPI (History of Present Illness) Category Sub-Category Detail Notes Category Not es HPI Patient is a 69 -year-old female who presents for follow-up evaluation left hip pain. Patient has been experiencing hip pain for several years with worsening over the last year. Pain is sharp and severe in nature. Pain is worse with standing and walking. Pain improves with rest. Patient does have history of prior left total knee arthroplasty approximately 8 years ago with revision in September 2022. She states 5 months after her initial total knee arthroplasty she was diagnosed with a periprosthetic infection. She did undergo I&D with polyethylene exchange. She states her surgeries were performed in [place]. She states over the last 2 years she has been on chronic suppression antibiotics with Dr. Colt Bryan infectious disease. She denies any new redness or drainage from her knee. Pain has been waking her at night in her hip. She ambulates without a brace or assistive device. She has been taking Tylenol or Percocet for chronic pain. She is currently on doxycycline. She tried a course of physical therapy with minimal relief. She does have borderline diabetes. Denies history of VTE. Arthrocentesis left knee from 11/14/2024 demonstrated 156 WBCs with 28% PMNs and negative cultures. Patient did undergo a hip intra-articular injection 01/05/2025 which gave her a couple weeks of relief. Examination Category Sub-Category Detail Notes Category Not es General examination General exam: Patient is a well-appearing female resting comfortably no acute distress. Patient is awake alert and oriented x 3. Normal mood and affect. Ambulates with antalgic gait. X-ray Imaging Studies AP pel vis and 2 views left hip reviewed from 11/28/2024. Radiographs demonstrate complete loss of left hip joint space with subchondral sclerosis and periarticular osteophytes. Central wear pattern. Right hip demonstrates moderate degenerative changes. No acute fracture or dislocation. Left Lower Extremity Midline scar with no erythema or drainage. Mild edema. No effusion. Mild tenderness to palpation anterior knee. No tenderness to palpation lateral joint line or medial joint line. Knee range of motion 0 to 120 degrees. Knee stable varus valgus stress. Stable anterior posterior drawer. Patella tracking centrally. 5 out of 5 quad strength. Motor intact TA, GSC, EHL, FHL. Sensation intact to light touch SPN, DPN, sural, saphenous, tibial nerve distribution. 2+ DP pulse. Toes well-perfused. No calf pain. Negative Homans. Mild discomfort with hip range of motion. Hip range of motion forward flexion 90 degrees, internal rotation 5 degrees, external rotation 30 degrees. Reproduction of hip and knee pain with hip range of motion. Consultation Request Notes Referral Date Referring Provider Referred Provider Not es 02/20/2025 Nick Pruitt , PLEASE SANDY CHONG AN APPT WITH DR MYRANDA JOEL
--- OUTSIDE RECORDS SUMMARY | 2025-03-22 11:52 | XMS_ITS ---
Author Organization [facility] [place] Address [address] [place] [address] Care Team Providers Care Senior Software Systems Engineer Name Role Phone Conrad Sosa Primary Care Provider [phone] REASON FOR VISIT previous testing Encounters Encounter Location Date Provider Diagnosis [facility] [address] [place] [address] 03/22/2025 Conrad Sosa Plan Of Treatment Next Appt Details Provider Name:Conrad batres, 04/19/2025 01:00:00 PM, [address] [place] [address], [phone], Provider Name:Conrad batres, 05/19/2025 11:30:00 AM, [address] [place] [address], [phone], Progress Notes * Danielle GRAHAMDonnellOB:1955 ( 69 yo F)Acc No.[id number]:03/22/2025 Patient: Renuka FRENCH :1955 A ge:69 Y S ex:Female Address:[address] [place] [phone] * true * Date: Generated for Ayaan batres/Marah/eTransmitting on: 0 04/11/2025 11:51 AM EDT
--- OUTSIDE RECORDS SUMMARY | 2025-03-29 07:33 | XMS_ITS ---
Author Organization [facility] [place] Address [address] [place] [address] Care Team Providers Care Electrophysiology Technologist Name Role Phone Conrad Sosa Primary Care Provider [phone] REASON FOR VISIT fall Encounters Encounter Location Date Provider Diagnosis [address] [address] 03/29/2025 Conrad Sosa Plan Of Treatment Next Appt Details Provider Name:Conrad batres, 04/19/2025 01:00:00 PM, [address] [place] [address], [phone], Provider Name:Conrad batres, 05/19/2025 11:30:00 AM, [address] [place] [address], [phone], Progress Notes * Danielle GRAHAMDonnellOB:1955 ( 69 yo F)Acc No.[id number]:03/29/2025 Patient: Renuka FRENCH :1955 A ge:69 Y S ex:Female Address:[address] [place] [phone] * true * Date: Generated for Ayaan batres/Marah/eTransmitting on: 0 04/11/2025 11:52 AM EDT
--- OUTSIDE RECORDS SUMMARY | 2025-04-10 07:30 | XMS_ITS ---
Author Organization [facility] in [place] Address [address] [place] [address] Care Team Providers Care Brick Sorter Name Role Phone Conrad Sosa Primary Care Provider [phone] Allergies Allergen (clinical drug ingredient) Drug/Non Drug Allergy documented on EMR Reaction Allergy Type Onset Date Status aspirin Aspirin anaphylaxis Drug Allergy Activ e Substance with sulfonamide structure and antibacterial mechanism of action (substance) Sulfa Antibiotics Unknown Drug Allergy Active Penicillin Unknown Drug Allergy Active REASON FOR VISIT stomach issues Medications Medication SIG (Take, Route, Frequency, Duration) Notes Start Date End Date Status Symbicort 160-4.5 MCG/ACT 2 puffs Inhala tion Twice a day Not-Taking guaiFENesin-Codeine 100-10 MG/5ML 10 mL as needed Orally q8 hours for 30 days 11/04/2024 Not-Taking Dulcolax 5 MG 1 tablet Orally Once a day for 30 days 04/10/2025 Active Plavix 75 MG 1 tablet Orally Once a day Not-Taking Magnesium 500 mg Not-Taking Fluconazole 100 MG 1 tablet Orally dante y for 30 days 08/10/2024 Not-Taking Ferrous Sulfate 325 (65 Fe) MG 1 tablet Orally Once a day Not-Taking Ondansetron HCl 4 MG 1 tablet Orally tid prn N for 30 days 04/10/2025 Active Fluticasone-Salmeterol 232-14 MCG/ACT 2 puffs Inhalation Twice a day for 30 days PRN Not-Taking DULoxetine HCl 30 MG 1 capsule Orally On ce a day Not-Taking Topiramate 200 MG 1 tablet Orally bid for 30 days 12/28/2024 Active tiZANidine HCl 4 mg TAKE TWO TABLETS orally bid for 30 days Active Temazepam 15 MG 1 capsule at bedtime as needed Orally Once a day for 90 days 12/01/2024 Active Breo Ellipta 100-25 MCG/ACT 1 puff Inhalation Once a day for 30 days 11/04/2024 Not-Taking Vitamin D (Ergocalciferol) 1.25 MG (75561 UT) 1 capsule Orally qweek for 90 days 09/16/2024 Active Pantoprazole Sodium 40 mg TAKE ONE TABLE T BY MOUTH TWICE A DAY for 90 days Active oxyCODONE-Acetaminophen 5-325 MG 1 tablet as needed Orally bid for 30 days 02/16/2025 Active PrePLUS 27-1mg Active Phentermine HCl 37.5 MG 1 tablet before breakfast Orally Once a day for 30 days 03/22/2025 Active Probiotic Active hydrOXYzine HCl 10 MG 1-2 tablets Orally every 6 hrs prn for 30 days Active Gabapentin 300 mg TAKE ONE CAPSULE BY MOUTH THREE TIMES A DAY for 90 Active Fluticasone Propionate 50 MCG/ACT 2 sprays Nasally Twice a day/PRN for 30 days PRN Active Ondansetron 4 MG 1/2-1 tablet on the tongue and allow to dissolve Orally Q8 hours/PRN nausea for 30 days PRN Active Magnesium Gluconate 500 mg TAKE ONE TABL ET BY MOUTH ONCE DAILY AT BEDTIME for 90 Active Fluconazole 100 MG 1 tablet Orally dante y for 7 days 03/22/2025 Active Cyanocobalamin 1000 MCG/ML 1 mL Injectio n SQ qmonth for 30 days Active FiberCon 625 MG 2 tablets as needed Orally Three times a day for 90 days Active Dicyclomine HCl 20 MG 1 tablet Orally Th ree times a day for 90 days 07/08/2023 Active diazePAM 5 MG 1 tablet as needed Orally PRN Active Albuterol Sulfate HFA 108 (90 Base) MCG/ACT INHALE 2 PUFFS EVERY 6 HOURS NEEDED for 25 Active Albuterol Sulfate (2.5 MG/3ML) 0.083% 3 mL as needed Inhalation every 6 hrs for 30 days 11/04/2024 Active Bumetanide 1 MG 1 tablet Orally BID for 90 days Active Allopurinol 100 mg TAKE TWO TABLETS BY MOUTH DAILY FOR 90 DAYS for 90 days Active Alendronate Sodium 70 mg TAKE ONE TABLET BY MOUTH ONCE WEEKLY for 84 Active Topiramate 50 MG 1 tablet Orally bid for 90 days 08/10/2024 Not-Taking Vitamin D3 Not-Takin g Topiramate 100 MG 1 tablet Orally bid for 90 days 02/17/2024 Not-Taking Social History Tobacco Use: Social History Observation Description Date Details (start date - stop date) Never Smoker NA - NA Tobacco Use/Smoking Question Answer Notes Patient is a nonsmoker Vital Signs Weight 211.6 lbs 04/10/2025 Height 63 in 04/10/2025 Blood pressure systolic 122 mm Hg 04/10/20 25 Blood pressure diastolic 70 mm Hg 025 Heart Rate 75 /min 04/10/2025 Respiratory Rate 16 /min 04/10/2025 BMI 37.48 kg/m2 04/10/2025 Oximetry 97 % 04/10/2025 Encounters Encounter Location Date Provider Diagnosis [facility] [address] [place] [address] 04/10/2025 Conrad Sosa Epigastric pain R10. 13 ; Nausea with vomiting, unspecified R11.2 ; Other constipation K59.09 ; Bitten by cat, initial encounter W55.01XA ; Morbid (severe) obesity due to excess calories E66.01 ; Body mass index [BMI] 37.0-37.9, adult Z68.37 and Obesity, class 2 E66.812 Assessments Encounter Date Diagnosis (ICD Code) Assessment Notes Treatment Notes Treatment Clinical Notes Section Notes 04/10/2025 Epigastric pain (ICD-10 - R10.13) ?gastritis vs PUD vs PBSO vs constipation vs gastroparesis vs ? continue ppi bid erx zofran BRAT no pop rtc prn hydrate 04/10/2025 Nausea with vomiting, unspecified (ICD-10 - R11.2) erx zofran 04/10/2025 Other constipation (ICD-10 - K59.09) erx dulcolox diet continue with fiber 04/10/2025 Bitten by cat, initial encounter (ICD-10 - W55.01XA) continue doxy she is on for her knee rtc if s/s of streaking/f/warmt h/etc 04/10/2025 Morbid (severe) obesity due to excess calories (ICD-10 - E66.01) diet/exercise 04/10/2025 Body mass index [BMI] 37.0-37.9, adult (ICD-10 - Z68.37) 04/10/2025 Obesity, class 2 (ICD-10 - E66.812) Plan Of Treatment Medication Medication Name Sig Start Date Stop Date Notes Dulcolax 5 MG 1 tablet Orally Once a day for 30 days 04/10/2025 Ondansetron HCl 4 MG 1 tablet Orally tid prn N for 30 days 04/10/2025 Treatment Notes Assessment Notes Epigastric pain ?gastritis vs PUD vs PBSO vs constipation vs gastroparesis vs ? continue ppi bid erx zofran BRAT no pop rtc prn hydrate Nausea with vomiting, unspecified erx zo artie Other constipation erx dulcolox diet continue with fiber Bitten by cat, initial encounter continue doxy she is on for her knee rtc if s/s of streaking/f/warmth/etc Morbid (severe) obesity due to excess calories diet/exercise Pending Test Test Name Order Date AMYLASE 04/10/2025 LIPASE 04/10/2025 UA (REFLEX URINALYSIS TO CULTURE) 2024 XR Abdomen AP (1 view) (KUB) * CMP (COMP MET GONZALEZ) w/eGFR CKD-EPI 2024 CBC WITH DIFF 04/10/2025 Next Appt Details Provider Name:Conrad Julio Cesar batres, 04/19/2025 01:00:00 PM, [address] [place] [address], [phone], Provider Name:Conrad Julio Cesar batres, 05/19/2025 11:30:00 AM, [address] [place] [address], [phone], Progress Notes * Doris GRAHAMOB:1955 ( 69 yo F)Acc No.[id number]:04/10/2025 UNLOCKED PROGRESS NOTE Established Patient: Renuka FRENCH Provider: Susi Soas DO :1955 A ge:69 Y S ex:Female Date:04/10/2025 Address:[address] [place], [place] [id number] Check In:11:24 AM SUSANCheck O ut:11:59 AM EST Subjective: * Chief Complaints: * 1 . Stomach issues. * HPI: G eneral: Patient presents today for stomach issues. She states her stomach issues started thursday with throwing up from eating peanut butter/banana toast. She states she was having pain in her L side of her mid abdomen while that happened and she didnt eat anything the rest of the weekend until Thursday. She states she tried toast again with jelly on Thursday and threw that up as well. She states she also tried oatmeal and couldnt stomach it. She is also having a hard time getting fluids in as well.. She states about 2 weeks ago she fell off the couch while sleeping. She states she had a hard getting up as her son was not able to hear her yelling for help. She also state she has been having issues with her head feeling tingly.-MV - - - - - - - - - - -- 04/08/25 pt was feeling ok and then had emesis and epi pain that evening after eating PB/bananas pt ate some chicken before eating the PB toast pt continued to be N and slept poorly +N worse with trying to drink anything 04/09/25 pt went to conf[facility]ianism but had to leave due to feeling like she was going to pass out pt felt weak and sick +poor appetite during the weekend pt ate PBJ last night and water/pop and had another emesis pt woke up this am and felt weak and N still - - - - - - - - - - pt with constipation - took stool softners last BM 04/07/25 no blood in stools no dysuria/hematuria still with epi pain no substernal burning pt has been drinking water during the weekend - - - - - - - - - - - - normally pt with mild constipation on fibercon daily on protonix bid - - - - - - - - +b/l forearms with cat bites recently no bleeding but some redness per pt. * ROS: G eneral/Constitutional: Significant change in weight d enies. E xercise Intolerance d enies. N ight sweats d enies. F ever d enies. E yes: Dry eyes D enies. V ision changes d enies. ? E NMT: Sore Throat d enies. N ose Bleeds d enies. D ifficulty hearing d enies. E ar pain d enies. N ose/sinus problems d enies. S noring d enies. B leeding gums d enies. D ry mouth d enies. M outh ulcers denies. O ral abnormalities d enies. T eeth problems d enies. C ardiovascular: Shortness of Breath w/Walking d enies. S hortness of Breath w/lying flat d enies. A rm pain on exertion d enies. C hest pain d enies.?Heart murmur d enies. P alpitations d enies. R espiratory: Coughing up blood d enies. C ough d enies. S hortness of breath d enies. W heezing d enies. G astrointestinal: Change in appetite d enies. V omiting blood d enies. A bdominal pain a dmits. C onstipation a dmits. D iarrhea d enies. V omiting a dmits. G enitourinary: Dysuria/Increased Frequency d enies. H ematuria d enies. I ncontinence d enies. D ifficulty urinating d enies. M usculoskeletal: Swelling in the extremities a dmits. A rthralgias/joint pain A dmits. B ack pain a dmits. W eakness of muscles a dmits. M uscle aches a dmits. S kin: Jaundice D enies. M ole(s) d enies. R christiano d enies. N eurologic: Dizziness d enies. L oss of consciousness d enies.?Numbness d enies. W eakness a dmits. H eadache d enies. S eizures d enies. P sychiatric: Alcohol abuse d enies. F eeling safe in relationship?denies. D epression d enies. A nxiety d enies. S leep Disturbances d enies. E ndocrine: Fatigue a dmits. H ematologic/Lymphatic: Swollen Glands d enies. B ruising d enies. ? A llergy/Immunology: Runny nose d enies. S inus pressure d enies. F requent sneezing d enies. H merrill d enies. I tching d enies. * Medical History: T hyroid nodule, Asthma, History of deep vein thormbosis, History of pulmonary embolus, Cobalamin deficiency, Gastroparesis syndrome, vitamin D deficiency, Allergic thinitis, Intolerance to lactose, Hyperparathyroidism due to renal insufficiency, Undifferentiated connective tissue disease, Osteoarthritis of right knee joint, Congestive heart failure, Anemia in chronic kidney disease, Chronic gastritis, Morbid obesity, Hyperuricemia, Diverticulosis, Osteopenia, JEREMY, Polyp of colon, Insomnia, Gastroesophageal reflux disease, Essential hypertension, Osteoarthritis of knee, L DDD, lumbar canal stenosis - L3/4, Covid, CKD-3b. * Surgical History: R knee replacement , biopsy of thyroid 02/25/2021, colonoscopy +hem and diverticulosis - repeat in 5 years per note 08/02/2018, esophagogastroduodenoscopy 08/02/2018, L knee replacement and 09/202208/17/2015, heart cath , bariatric surgery - . * Family History: 1 son(s) . . patient adopted but biological grandfather had CHF. * Social History: T obacco Use: T obacco Use/Smoking P atient is a n onsmoker * Medications: T aking Albuterol Sulfate (2.5 MG/3ML) 0.083% Nebulization Solution 3 mL as needed Inhalation every 6 hrs , Taking Albuterol Sulfate HFA 108 (90 Base) MCG/ACT Aerosol Solution INHALE 2 PUFFS EVERY 6 HOURS NEEDED , Taking Alendronate Sodium 70 mg Tablet TAKE ONE TABLET BY MOUTH ONCE WEEKLY , Taking Allopurinol 100 mg Tablet TAKE TWO TABLETS BY MOUTH DAILY FOR 90 DAYS , Taking Bumetanide 1 MG Tablet 1 tablet Orally BID , Taking Cyanocobalamin 1000 MCG/ML Liquid 1 mL Injection SQ qmonth , Taking diazePAM 5 MG Tablet 1 tablet as needed Orally PRN , Taking Dicyclomine HCl 20 MG Tablet 1 tablet Orally Three times a day , Taking FiberCon(Calcium Polycarbophil) 625 MG Tablet 2 tablets as needed Orally Three times a day , Taking Fluconazole 100 MG Tablet 1 tablet Orally daily , Taking Fluticasone Propionate 50 MCG/ACT Suspension 2 sprays Nasally Twice a day/PRN , Notes to Pharmacist: PRN, Taking Gabapentin 300 mg Capsule TAKE ONE CAPSULE BY MOUTH THREE TIMES A DAY , Taking hydrOXYzine HCl 10 MG Tablet 1-2 tablets Orally every 6 hrs prn , Taking Magnesium Gluconate 500 mg Tablet TAKE ONE TABLET BY MOUTH ONCE DAILY AT BEDTIME , Taking Ondansetron 4 MG Tablet Disintegrating 1/2-1 tablet on the tongue and allow to dissolve Orally Q8 hours/PRN nausea , Notes to Pharmacist: PRN, Taking oxyCODONE-Acetaminophen 5-325 MG Tablet 1 tablet as needed Orally bid , Taking Pantoprazole Sodium 40 mg Tablet Delayed Release TAKE ONE TABLET BY MOUTH TWICE A DAY , Taking Phentermine HCl 37.5 MG Tablet 1 tablet before breakfast Orally Once a day , Taking PrePLUS , Notes to Pharmacist: 27- 1mg, Taking Probiotic , Taking Temazepam 15 MG Capsule 1 capsule at bedtime as needed Orally Once a day , Taking tiZANidine HCl 4 mg Tablet TAKE TWO TABLETS orally bid , Taking Topiramate 200 MG Tablet 1 tablet Orally bid , Taking Vitamin D (Ergocalciferol) 1.25 MG (09122 UT) Capsule 1 capsule Orally qweek , Not- Taking/PRN Breo Ellipta(Fluticasone Furoate-Vilanterol) 100-25 MCG/ACT Aerosol Powder Breath Activated 1 puff Inhalation Once a day , Not-Taking/PRN DULoxetine HCl 30 MG Capsule Delayed Release Particles 1 capsule Orally Once a day , Not-Taking/PRN Ferrous Sulfate 325 (65 Fe) MG Tablet 1 tablet Orally Once a day , Not-Taking/PRN Fluconazole 100 MG Tablet 1 tablet Orally daily , Not-Taking/PRN Fluticasone-Salmeterol 232- 14 MCG/ACT Aerosol Powder Breath Activated 2 puffs Inhalation Twice a day , Notes to Pharmacist: PRN, Not-Taking/PRN guaiFENesin-Codeine 100-10 MG/5ML Solution 10 mL as needed Orally q8 hours , Not-Taking/PRN Magnesium , Notes to Pharmacist: 500 mg, Not-Taking/PRN Plavix(Clopidogrel Bisulfate) 75 MG Tablet 1 tablet Orally Once a day , Not-Taking/PRN Symbicort(Budesonide-Formoterol Fumarate) 160-4.5 MCG/ACT Aerosol 2 puffs Inhalation Twice a day , Not-Taking/PRN Topiramate 50 MG Tablet 1 tablet Orally bid , Not-Taking/PRN Topiramate 100 MG Tablet 1 tablet Orally bid , Not- Taking/PRN Vitamin D3 , Medication List reviewed and reconciled with the patient * Allergies: A spirin: anaphylaxis, Penicillin, Sulfa Antibiotics. Objective: * Vitals: W t:211.6lbs, Ht: 63 in, BP:122/70mm Hg, HR:75/min, RR:16/min, BMI:37.48Index, Oxygen sat %:97%, Ht-cm: 160.02 cm, Wt-k.98 kg. * Examination: G eneral Examination: GENERAL APPEARANCE: h ealthy Appearing , well nourished , well developed Level of distress: NAD, a mbulating normally. ENMT: n o lesions on external ear, EACs clear, TMs clear, no hearing loss, no lesions on external ears, nares patent, nasal passages clear, no sinus tenderness, no nasal discharge, no mouth or lip ulcers, no bleeding gums, moist mucous membranes, no erythema, no exudates. HEAD: n ormocephalic, atraumatic. EYES: n on-injected, no discharge, no pallor, PERRLA , EOMI, lens clear, sclera non- icteric, peripheral vision grossly intact, acuity grossly intact. LUNGS: n o dyspnea, breath sounds normal , good air movement, CTA except as noted, no wheezing, no rales/crackles, no rhonchi. CARDIO: n ot displaced, RRR, S1, S2 normal , no murmurs, rubs, gallops , no carotid bruits, normal throughout. ABDOMEN: s oft, +epi pain with palpation, +hypoactive BS, not distended, no guarding, no rebound tenderness, no masses, no CVA tenderness, liver non tender, no hepatomegaly. BACK: n ormal curvature. MUSCULOSKELETAL: n ormal motor strength, normal tone, normal movement of all extremities, no bony abnormalities, no contractures, no malalignment, no tenderness, no cyanosis, no edema, no varicosities. SKIN: n o rash, +R forearm with scabbed linear scratches from cat bite per pt - mild surrounding erythema but no streaking and no warmth noted, no ulcer, no abnormal nevi, no induration, no nodules, good turgor, no jaundice. EXTREMITIES: No edema. NEUROLOGIC: n ormal gait, normal station, cranial nerves grossly intact, sensation grossly intact, DTRs 2+ bilaterally throughout, no tremor. PSYCH: j udgement and insight good, active and alert, normal mood, normal affect. NECK/THYROID: N keshawn supple, trachea midline, no masses, FROM, no cervical LAD, no supraclavicular LAD, no axillary LAD, no inguinal LAD, no enlargement, non-tender, no nodules. Assessment: * Assessment: 1. E pigastric pain - R10.13 (Primary) 2 . N ausea with vomiting, unspecified - R11.2 3 . O ther constipation - K59.09 4 . B itten by cat, initial encounter - W55.01XA 5 . M orbid (severe) obesity due to excess calories - E66.01 6 . B tyler mass index [BMI] 37.0-37.9, adult - Z68.37 ?7. O besity, class 2 - E66.812 Plan: * Treatment: 2. N ausea with vomiting, unspecified Start Ondansetron HCl Tablet, 4 MG, 1 tablet, Orally, tid prn N, 30 days, 30, Refills 0. Notes: erx zofran 3. O ther constipation Start Dulcolax Tablet Delayed Release, 5 MG, 1 tablet, Orally, Once a day, 30 days, 30 Tablet, Refills 0. Notes: erx dulcolox diet continue with fiber 4. B itten by cat, initial encounter Notes: continue doxy she is on for her knee rtc if s/s of streaking/f/warmth/etc 5. M orbid (severe) obesity due to excess calories Notes: diet/exercise * * Electronic signature of Maxx Sosa DO, [id number] on 04/11/2025 at 11:52 AM EDT Sign off status: Pending Visit Status: Bashir HERNANDEZ (Check Out) * Provider: Susi Sosa DO Date: 04/10/2025 Generated for Ayaan batres/Marah/Norbertoitting on: 0 04/11/2025 11:52 AM EDT History and Physical Notes * Examination Category Sub-Category Detail Notes Category Not es General Examination GENERAL APPEARANCE: healthy Appearing , well nourished , well developed Level of distress: NAD, ambulating normally EYES: non-injected, no dis charge, no pallor, PERRLA , EOMI, lens clear, sclera non-icteric, peripheral vision grossly intact, acuity grossly intact CARDIO: not displaced, RRR, S1, S2 normal , no murmurs, rubs, gallops , no carotid bruits, normal throughout LUNGS: no dyspnea, breath s ounds normal , good air movement, CTA except as noted, no wheezing, no rales/crackles, no rhonchi ABDOMEN: soft, +epi pain with palpation, +hypoactive BS, not distended, no guarding, no rebound tenderness, no masses, no CVA tenderness, liver non tender, no hepatomegaly NEUROLOGIC: normal gait, normal station, cranial nerves grossly intact, sensation grossly intact, DTRs 2+ bilaterally throughout, no tremor SKIN: no rash, +R forearm with scabbed linear scratches from cat bite per pt - mild surrounding erythema but no streaking and no warmth noted, no ulcer, no abnormal nevi, no induration, no nodules, good turgor, no jaundice EXTREMITIES: No edema BACK: normal curvature MUSCULOSKELETAL: normal motor strengt h, normal tone, normal movement of all extremities, no bony abnormalities, no contractures, no malalignment, no tenderness, no cyanosis, no edema, no varicosities PSYCH: judgement and insigh t good, active and alert, normal mood, normal affect ENMT: no lesions on rigger al ear, EACs clear, TMs clear, no hearing loss, no lesions on external ears, nares patent, nasal passages clear, no sinus tenderness, no nasal discharge, no mouth or lip ulcers, no bleeding gums, moist mucous membranes, no erythema, no exudates HEAD: normocephalic, atrau matic NECK/THYROID: Neck supple, trachea midline, no masses, FROM, no cervical LAD, no supraclavicular LAD, no axillary LAD, no inguinal LAD, no enlargement, non-tender, no nodules
--- OUTSIDE RECORDS SUMMARY | 2025-04-11 11:51 | XMS_ITS | Patient Health Record ---
Author Organization [facility] Address [address] [place] [address] Care Team Providers Care Export Coordinator Name Role Phone Alli Barlow Primary Care Provider Allergies Allergen (clinical drug ingredient) Drug/Non Drug Allergy documented on EMR Reaction Allergy Type Onset Date Status aspirin Aspirin stomach upset Drug Allergy Act junior Latex Latex rash Allergy Active Penicillin rash Drug Allergy Active Substance with sulfonamide structure and antibacterial mechanism of action (substance) Sulfa Antibiotics hives Drug Allergy Active Tape rash Allergy Active Reason For Referral No Information Medications Medication SIG (Take, Route, Frequency, Duration) Notes Start Date End Date Status Allopurinol 100 MG 2 tabs Orally Once a day Active Gabapentin 300 MG 1 capsule Orally TID Active Bumetanide 0.5 MG 1 tab Orally bid Active Midodrine HCl 2.5 MG 1 tablet Orally BID Active Pantoprazole Sodium 40 MG 1 tablet Orall y once a day for 90 days Active Eliquis 2.5 MG 1 tab Orally twice a day (bid) for 90 days Active tiZANidine HCl 4 MG 2 tabs Orally BID Active Albuterol Sulfate HFA 108 (90 Base) MCG/ACT 1 puff as needed Inhalation every 4 hrs Active Symbicort 160-4.5 MCG/ACT 2 puffs Inhala tion Twice a day Active Albuterol Sulfate (2.5 MG/3ML) 0.083% 3 ml as needed Inhalation every 8 hrs Active Nebulizer tubing and supplies Active Social History Tobacco Use: Social History Observation Description Date Details (start date - stop date) Never Smoker NA - NA Tobacco Screen: Question Answer Notes Are you a: never smoker Alcohol Screening: Question Answer Notes Did you have a drink contain ing alcohol in the past year? Yes How often did you have a dri nk containing alcohol in the past year? Monthly or less (1 point) How many drinks did you have on a typical day when you were drinking in the past year? 1 or 2 (0 points) How often did you have six o r more drinks on one occasion in the past year? Never (0 points) Points 1 Interpretation Negative PRAPARE Question Answer Notes Date Completed/Updated: 05/08/2021 What is your current housing situation? I have h ousing Are you worried about losing your housing? No What is the highest level of school that you have finished? High school diploma or GED What is your current work situation? Oth erwise unemployed but not seeking work (ex. 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 Check all that apply I do not have problems meeting my needs Has lack of transportation k ept you from medical appointments, meetings, work or from getting things needed for daily living? Yes, it has kept me from medical appointments or from getting my medications,Yes, it has kept me from non-medical meetings, appointments, work, or getting things needed for daily living How often do you see or talk to people that you care about and feel close to? (For example: talking to friends on the phone, visiting friends or family, going to protestant or club meetings) More than 5 times a week How stressed are you? Stress is when someone feels tense, nervous, anxious, or cant sleep at night because their mind is troubled Somewhat In the past year have you sp ent more than 2 nights in a row in a longterm, correction, residential center, or juvenile correctional facility? No Are you a refugee? No What country are you from? [place] Do you feel physically and e motionally safe where you currently live? Yes In the past year, have you b een afraid of your partner or ex-partner? No PRAPARE Score: 6 Problems Problem Type SNOMED Code ICD Code Onset Dates Problem Status W/U Status Risk Notes Problem [id number] Gastroesophageal reflux disease without esophagitis (K21.9) Active confirmed Plan Of Treatment No Information Insurance Providers Payer Name Payer Address Payer Phone Subscriber Number Group Number Insured Name Patient Relationship to Insured Coverage Start Date Coverage End Date MEDICARE CGS 1 CARLOS NICHOLSON, ARACELI [phone] [id number] CASTILLO GRAHAM Self - patient is the insured 8 MEDICAID SEC TO MCARE [address] [place] [address] [phone] [id number] CASTILLO GRAHAM Self - patient is the insured 8 [employer] [address] [place] [address] [id number] CASTILLO GRAHAM Self - patient is the insured 2 DENTAL [employer] MEDICARE [address] [address] [place] [address] [id number] CASTILLO GRAHAM Self - patient is the insured 2 Medical (General) History Medical History History ICD Code Gout GERD Asthma/COPD CHF ? HPTN Stage 3 kidney disease TYPE 2 DM Surgical History Surgery Date(Month/Year) appendectomy 1961 T & A 1973 04/1983 Gastric Bypass 1983 Lower GI 2018 Upper GI 2019 Heart Catheterization 1999 Thyroid biopsy 2020 Total left knee replacement 2018 Total rt. knee replacement x 2 2018 Hospitalization History Reason Date(Month/Year) see above
--- OUTSIDE RECORDS SUMMARY | 2025-04-11 11:51 | XMS_ITS | Clinical Summary ---
Author Organization [facility] Address [address] [place] [address] Care Team Providers Care Tree Surgeon Helper Name Role Phone Unavailable Primary Care Provider Unavailabl e Allergies Active Allergy Reactions Criticality Noted Date Comments Aspirin Hives,Shortness Of Breath,Rash High 01/02/2025 Duloxetine 01/02/2025 Benzalkonium Chloride Rash Low 01/02/2025 Dial soap Furosemide Rash Low 01/02/2025 Ibuprofen 01/02/2025 Can not take d/t kidney disease Latex Hives,Itching,Rash Low 01/02/2025 Nabumetone 01/02/2025 Nickel Itching 01/02/2025 Nylon Itching,Rash Low 01/02/2025 Penicillins Hives,Shortness Of Breath,Itching,Rash High 01/02/2025 Semaglutide 01/02/2025 Sulfa Antibiotics Hives,Shortness Of Breath,Itching,Rash High 01/02/2025 Tramadol 01/02/2025 Wound Dressing Adhesive 01/02/2025 bandaids Medications oxyCODONE 5 MG capsule Take 1 capsule by mouth every 4 hours as needed for Pain. Active temazepam (RESTORIL) 15 MG capsule Take 1 capsule by mouth nightly as needed for Sleep. Active topiramate (TOPAMAX) 200 MG tablet Take 1 tablet by mouth 2 times daily Active pantoprazole (PROTONIX) 40 MG tablet Take 1 tablet by mouth in the morning and at bedtime Active bumetanide (BUMEX) 1 MG tablet Take 1 tablet by mouth 2 times daily Active allopurinol (ZYLOPRIM) 100 MG tablet Take 2 tablets by mouth daily Active MAGNESIUM OXIDE PO Take 500 mg by mouth nightly Active gabapentin (NEURONTIN) 300 MG capsule Take 1 capsule by mouth 3 times daily. Active Alendronate Sodium (FOSAMAX PO) Take 70 mg by mouth Once a week at 5 PM Thursday mornings Active albuterol sulfate HFA (VENTOLIN HFA) 108 (90 Base) MCG/ACT inhaler Inhale 2 puffs into the lungs every 6 hours as needed for Wheezing Active polycarbophil (FIBERCON) 625 MG tablet Take 1 tablet by mouth in the morning and 1 tablet at noon and 1 tablet in the evening. Active Cholecalciferol 1.25 MG (70736 UT) TABS Take 1 capsule by mouth once a week Mondays Active cyanocobalamin 1000 MCG/ML injection Inject 1 mL into the muscle every 30 days Active docusate sodium (COLACE) 100 MG capsule Take 1 capsule by mouth 2 times daily as needed for Constipation Active fluconazole (DIFLUCAN) 100 MG tablet Take 1 tablet by mouth daily as needed (yeast infections) Active albuterol (PROVENTIL) (2.5 MG/3ML) 0.083% nebulizer solution Take 3 mLs by nebulization 4 times daily as needed for Wheezing 120 each 3 5 Active albuterol sulfate HFA (VENTOLIN HFA) 108 (90 Base) MCG/ACT inhaler Inhale 2 puffs into the lungs every 6 hours as needed for Wheezing 18 g 3 5 Active oxyCODONE-aceta minophen (PERCOCET) 5-325 MG per tablet Take 1 tablet by mouth in the morning and at bedtime. Active loratadine (CLARITIN) 10 MG tablet Take 1 tablet by mouth daily Active fluticasone (FLONASE) 50 MCG/ACT nasal spray 1 spray by Nasal route 2 times daily as needed for Allergies Active tiZANidine (ZANAFLEX) 4 MG tablet Take 2 tablets by mouth nightly Active Active Problems Problem Noted Date Diagnosed Date Hypotension after procedure 01/05/2025 COPD (chronic obstructive pulmonary disease) Diabetes mellitus Hypertension Stage 4 chronic kidney disease Family History Relation Name Status Comments Mother Alive Social History Tobacco Use Types Packs/Day Years Used Date Smoking Tobacco: Never Smokeless Tobacco: Never Tobacco Cessation:Counseling Given: Not Answered Alcohol Use Standard Drinks/Week Comments Yes 0 (1 standard drink = 0.6 oz pur e alcohol) Ocassionally [facility] Utilities Answer Date Recorded In the past 12 months has th e [employer], gas, oil, or water company threatened to shut off services in your home? No 01/05/2025 [employer] Answer Date Recorded Q1: How often do you have a drink containing alc ohol? Monthly or less 01/05/2025 Q2: How many drinks containi ng alcohol do you have on a typical day when you are drinking? 1 or 2 01/05/2025 Q3: How often do you have si x or more drinks on one occasion? Never 01/05/2025 Hunger Vital Sign Answer Date Recorded Within the past 12 months, y ou worried that your food would run out before you got the money to buy more. Never true 01/06/20 Within the past 12 months, t he food you bought just didn't last and you didn't have money to get more. Never true 01/05/2025 PRAPARE - Transportation Answer Date Re corded In the past 12 months, has l ack of transportation kept you from medical appointments or from getting medications? No 12/18 In the past 12 months, has l ack of transportation kept you from meetings, work, or from getting things needed for daily living? No 01/05/2025 Housing Stability Vital Sign Answer Raoul e Recorded In the last 12 months, was t here a time when you were not able to pay the mortgage or rent on time? No 01/05/2025 In the past 12 months, how m any times have you moved where you were living? 0 01/05/2025 At any time in the past 12 m [facility], were you homeless or living in a alf (including now)? No 01/05/2025 Food Insecurity Answer Date Recorded Within the past 12 months, y ou worried that your food would run out before you got the money to buy more. 1 01/05/2025 Within the past 12 months, t he food you bought just didn't last and you didn't have money to get more. 1 01/05/2025 Interpersonal Safety Domain Source: IP Abuse Scr eening Answer Date Recorded Physical abuse Denies 01/05/2025 Verbal abuse Denies 01/05/2025 Emotional abuse Denies 01/05/2025 Financial abuse Denies 01/05/2025 Sexual abuse Denies 01/05/2025 Comments Unknown Sex and Gender Information Value Date Recorded Sex Assigned at Not on file Legal Sex Female 7:56 PM EDT Gender Identity Not on file Sexual Orientation Not on file Last Filed Vital Signs Vital Sign Reading Time Taken Comments Blood Pressure 124/57 01/06/2025 7:28 AM EDT Pulse 60 01/06/2025 7:28 AM EDT Temperature 36.5 C (97.7 F) 01/06/2025 7:28 AM EDT Respiratory Rate 20 01/06/2025 7:28 AM EDT Oxygen Saturation 97% 01/06/2025 7:28 AM EDT Inhaled Oxygen Concentration - - Weight 97.1 kg (214 lb) 01/05/2025 3:07 PM EDT Height 160 cm (5' 2.99 ) 01/05/2025 3:07 PM EDT Body Mass Index 37.92 01/05/2025 3:07 PM EDT Plan of Treatment Health Maintenance Due Date Last Done Comments A1C test (Diabetic or Prediabetic) 1965 Diabetic foot exam 1965 Lipids 1965 Depression Screen 1967 Diabetic Alb to Cr ratio (uACR) test 1973 Diabetic retinal exam 1973 Hepatitis C screen 1973 DTaP/Tdap/Td vaccine (1 - Tdap) 1974 Breast cancer screen 1995 Colonoscopy 2000 Colorectal Cancer Screen 2000 FIT/FOBT: Average risk 2000 Fecal-DNA (Cologuard): Average risk 2000 Sigmoidoscopy/CT colonography 2000 Shingles vaccine (1 of 2) 2005 DEXA (modify frequency per FRAX score) 2010 Respiratory Syncytial Virus (RSV) or age 60 yrs+ (1 - Risk 60-74 years 1-dose series) 2015 COVID-19 Vaccine ( season) 2024 01/24/2021, 01/02/2021 Annual Wellness Visit (Medicare Advantage) 10/19/2024 GFR test (Diabetes, CKD 3-4, OR last GFR 15-59) 01/05/2026 01/05/2025 Pneumococcal 50+ years Vaccine Completed 08/19/2020, 08/02/2019, 07/19/2019, Additional history exists Flu vaccine Completed 08/10/2024, 110 05/2023, 08/07/2022, Additional history exists Hepatitis A vaccine Aged Out No longe r eligible based on patient's age to complete this topic Hepatitis B vaccine Aged Out No longe r eligible based on patient's age to complete this topic Hib vaccine Aged Out No longer eligi ble based on patient's age to complete this topic Meningococcal (ACWY) vaccine Aged Out No longer eligible based on patient's age to complete this topic Meningococcal B vaccine Aged Out No l onger eligible based on patient's age to complete this topic Polio vaccine Aged Out No longer elig ible based on patient's age to complete this topic Procedures Procedure Name Priority Date/Time Associated Diagnosis Comments BASIC METABOLIC PANEL W/ REFLEX TO MG FOR LOW K [employer] Label Print 01/05/2025 3:30 PM EDT from Last 3 Months or Most Recently Relevant to Health Maintenance Results * (ABNORMAL) Basic Metabolic Panel w/ Reflex to MG (01/05/2025 3:30 PM EDT) Sodium 141 136 - 145 mmol/L 01/05/2025 3:30 PM EDT [facility] Potassium 4.1 3.7 - 5.3 mmol/L 01/05/2025 3:30 PM EDT [facility] Chloride 109(H) 98 - 107 mmol/L 01/05/2025 3:30 PM EDT [facility] CO2 23 20 - 31 mmol/L 01/05/2025 3:30 PM EDT [facility] Anion Gap 9 9 - 16 mmol/L 01/05/2025 3:30 PM T [facility] Glucose 166(H) 74 - 99 mg/dL 01/05/2025 3:30 PM EDT [facility] BUN 19 8 - 23 mg/dL 01/05/2025 3:30 PM EDT [facility] Creatinine 1.0(H) 0.50 - 0.90 mg/dL 01/05/2025 3:30 PM EDT [facility] Est, Gloesme Filt Rate 60(L) >60 mL/min/1.7 3m2 01/05/2025 3:30 PM EDT [facility] Comment: These results are not intended for use in patients <18 years of age. eGFR results are calculated without a race factor using the 2020 CKD-EPI equation. Careful clinical correlation is recommended, particularly when comparing to results calculated using previous equations. The CKD-EPI equation is less accurate in patients with extremes of muscle mass, extra-renal metabolism of creatine, excessive creatine ingestion, or following therapy that affects renal tubular secretion. BUN/Creatinine Ratio 19 9 - 20 01/05/2025 3:30 PM EDT [facility] Calcium 8.7 8.6 - 10.4 mg/dL 01/05/2025 3:30 PM EDT [facility] Blood BLOOD SPECIMEN / Unknown 01/05/2025 3:30 PM EDT 01/05/2025 3:33 PM EDT Danika Prince CLINICAL QUALITY ASSURANCE ASSOCIATE - METAL HANGING HELPER CHEMISTRY ORD ERABLES Final Result [facility] [address] [phone] from Last 3 Months or Most Recently Relevant to Health Maintenance Insurance [employer] MEDICARE MEDICAID [place] Advance Directives * Full Code (Latest Code Status on File) Date Activated Date Inactivated Comments 01/05/2025 6:23 AM 01/06/2025 2:44 PM
--- OUTSIDE RECORDS SUMMARY | 2025-04-11 11:52 | XMS_ITS | Encounter Summary ---
Author Organization [facility] Address [address] [place] [address] Care Team Providers Care Neurology Physician Assistant Name Role Phone Conrad Sosa DO Primary Care Provider [phone] Italo Ann MD Unavailable [phone] Italo Ann MD Unavailable [phone] Source Comments In the event this information is protected by the Federal Confidentiality of Alcohol and Drug AbusePatient Records regulations: The Federal rules restrict any use of the information to criminally investigate or prosecute any alcohol or drug abuse patient.[facility] Encounter Details Date Type Department Care Team (Late st Contact Info) Description 11/14/2019 Patient Msg Cardiology [address] [phone] Italo Ann MD [address] [place] [address] RE: Appointment Cancellation Request Social History Tobacco Use Types Packs/Day Years Used Date Smoking Tobacco: Passive Smo ke Exposure - Never Smoker Cigarettes Smokeless Tobacco: Never Alcohol Use Standard Drinks/Week Comments No 0 (1 standard drink = 0.6 oz pur e alcohol) Comments No Sex and Gender Information Value Date Recorded Sex Assigned at Not on file Legal Sex Female 9:52 AM EST Gender Identity Not on file Sexual Orientation Not on file documented as of this encounter Plan of Treatment Not on file documented as of this encounter Visit Diagnoses Not on filedocumented in this encounter Care Teams Neurology Physician Assistant Relationship Specialty Start Date End Date Conrad Sosa DO PCP - General Family Medicine 06/25/17 Italo Ann MD [address] [facility] [address] [place] [address] Primary Staff Physician Cardiology 01/04/1901/04 Italo Ann MD [address] [facility] [address] [place] [address] Primary Staff Physician Cardiology 01/04/19 documented as of this encounter
--- OUTSIDE RECORDS SUMMARY | 2025-04-11 11:52 | XMS_ITS | Patient Health Record ---
Author Organization [facility] Address [address] [place] [address] Care Team Providers Care Fabrics And Material Cutter Name Role Phone Conrad Sosa DO Primary Care Provider Unavail able Marshall Bryan Unavailable [phone] Araceli Edwards Unavailable [phone] Sage Alfaro Unavailable [phone] Allergies Allergen (clinical drug ingredient) Drug/Non Drug Allergy documented on EMR Reaction Allergy Type Onset Date Status all tapes, band-aids (uncoded) blisters, swollen throat Allergy Active Latex Latex (uncoded) Unknown Allergy Acti ve penicillin (uncoded) blisters, swollen throat Allergy Active sulfa (uncoded) blisters, swollen throat Allergy Active aspirin aspirin blisters, swollen throat Drug Allergy Active Results Component Value Reference Range Notes Surgery Scheduling Reviewed date:01/06/2025 08:08:30 AM Interpretation: Performing Lab: Notes/Report: Primary Insurance Company: Medicare A[employer]na Surgeon/Assist: Marshall Bryan MD/Maria De Jesus Bentley Surgery Location: [facility] Surgery Date & Time: January 05, 2025 Procedure: Left Hip Intra-Artic ular Injection CPT #67119 C-Arm: yes Diagnosis: Left Hip Pain/OA Admission Type: outpatient Anesthesia Type/CPNB: MAC Dental Chair Assembler: Rocío Bentley/Maria De Jesus Crystals Fluids Reviewed date:11/16/2024 07:56:40 AM Interpretation: Performing Lab: Notes/Report: [facility] [place] [address] Car Repairer Apprentice: Rocco Salas MD [facility] [address] [place] [address] Car Repairer Apprentice: Reagan Lea MD Type of Specimen .JOINT FLUID Crystals,Fluid NEGATIVE NEG NO CRYSTALS S EEN Pathologist Review: ELECTRONICALLY AUSTIN ALDRICH M.D. Performing Lab: see note [facility] [address] [place] [address] [place] [address] [facility] [address] [facility] [place] [address] Fluid Cell Count and Diff Reviewed date:11/14/2024 01:52:35 PM Interpretation: Performing Lab: Notes/Report: [address] [place] [address] Car Repairer Apprentice: Reagan Lea MD Color Yellow Appearance SLIGHTLY CLOUDY WBC 156 RBC 8000 Type of Specimen .JOINT FLUID Neutrophils 28 0 % Lymphocyte 72 0 % Total Cells Counted 50 Performing Lab: see note [address] [place] [address] Basic Metab w/rfx MG Reviewed date:01/07/2025 09:45:23 AM Interpretation: Performing Lab: Notes/Report: [address] [place] [address] Car Repairer Apprentice: Reagan Lea MD NA (Sodium) 141 136-145 mmol/L K (Potassium) 4.1 3.7-5.3 mmol/L Chloride 109 98-107 mmol/L CO2 23 20-31 mmol/L Anion Gap 9 9-16 mmol/L Glucose 166 74-99 mg/dL BUN (Urea N) 19 8-23 mg/dL Creatinine 1.0 0.50-0.90 mg/dL eGFR 60 >60 mL/min/1.73m2 These results are not intended for use [...] following therapy that affects renal tubular secretion. BUN/CRE Ratio 19 9-20 Calcium 8.7 8.6-10.4 mg/dL Performing Lab: see note [facility] - [address] [place] [id number] Cult Aerobe Anaerobe Reviewed date:11/21/2024 08:16:42 AM Interpretation: Performing Lab: Notes/Report: [place] [address] [place] [address] Car Repairer Apprentice: Rocco Salas MD [address] [place] [id number] Car Repairer Apprentice: Reagan Lea MD Cult,Aerobe/Anaerobe Specimen Description .JOINT FLUID .KNEE LEFT 6.8mL Special Requests .JOINT FLUID .KNEE LEFT Direct Exam FEW NEUTROPHILS NO ORGANISMS SEEN Culture NO GROWTH 5 DAYS Report Status FINAL 11/19/2024 Performing Lab: see note [address] [place] [id number] UA w Reflex Culture Reviewed date:01/07/2025 09:45:26 AM Interpretation: Performing Lab: Notes/Report: Car Repairer Apprentice: Reagan Lea MD [facility] Lab Color Yellow YEL Clarity, Urine Clear CLEAR Glucose,Semi-qnt,Ur NEGATIVE NEG mg/dL Bilirubin, SemiQt,Ur NEGATIVE NEG Ketones, Urine NEGATIVE NEG mg/dL Spec. [place],Ur <1.005 1.010-1.020 Blood, Urine NEGATIVE NEG PH,Ur 7.5 5.0-9.0 Protein, Semi-qnt,Ur NEGATIVE NEG mg/dL Urobilinogen,Ur Normal 0.0-1.0 EU/dL Nitrite,Ur NEGATIVE NEG Leukocyte Esterase NEGATIVE NEG Performing Lab: see note [address] [place] [id number] CBC with Diff Reviewed date:01/07/2025 09:45:11 AM Interpretation: Performing Lab: Notes/Report: [address] [place] [address]483 Car Repairer Apprentice: Reagan Lae MD WBC Count 4.4 3.5-11.3 k/uL RBC Count 3.94 3.95-5.11 m/uL Hemoglobin 11.2 11.9-15.1 g/dL Hematocrit 35.2 36.3-47.1 % MCV 89.3 82.6-102.9 fL MCH 28.4 25.2-33.5 pg MCHC 31.8 28.4-34.8 g/dL RDW 14.0 11.8-14.4 % Platelet Count 171 138-453 k/uL MPV 10.3 8.1-13.5 fL NRBC Automated 0.0 0.0 per 100 WBC Neutrophil (Seg) 88 36-65 % Lymphocyte 10 24-43 % Monocyte 1 3-12 % Eosinophil 1 1-4 % Immature Granulocyte 0 0 % Basophil 0 0-2 % Abs.Neutrophil (Seg) 3.88 1.50-8.10 k/uL Abs. Lymph 0.44 1.10-3.70 k/uL Abs. Monocyte 0.04 0.10-1.20 k/uL Abs. Eosinophil 0.04 0.00-0.44 k/uL Abs.Imm.Granulocyte 0.00 0.00-0.30 k/uL Abs. Basophil 0.00 0.0-0.2 k/uL Morphology Normal Performing Lab: see note [facility] Lab [address] [place] [id number] Urinalysis Micro Reviewed date:01/07/2025 09:45:24 AM Interpretation: Performing Lab: Notes/Report: [facility] [address] [place], [place] [address]83 Car Repairer Apprentice: Reagan Lea MD Urine WBC's None 0-5 /HPF Urine RBC's None 0-2 /HPF Epithelial cells 0 TO 2 0-25 /HPF Performing Lab: see note [facility] [address] [place] [address]83 Glucose, Whole Blood Reviewed date:01/07/2025 09:46:11 AM Interpretation: Performing Lab: Notes/Report: Glucose, Whole Blood 136 74-100 mg/dL Performing Lab: see note TT - Produce r Id information not found for OBX-specific insurance producer legend XR CHEST (2 VW) Reviewed date:01/07/2025 09:45:38 AM Interpretation: Performing Lab: Notes/Report: EXAMINATION: Performed at: [address] [place] [address] [employer] PROCED[employer] ES Reviewed date:01/07/2025 09:45:49 AM Interpretation: Performing Lab: Notes/Report: Radiology exam is complete. No Radiologist dictation. Please follow up with ordering provider. Performed at: [address] [place] [address] Reason For Referral Reason NO AUTH REQ.....................................01/05/25............................AETNA MCR Left Hip Intra-Articular Injection @ [facility] Diagnos is 1 Pain in left hip (M25.552) Referra l [facility] Referri medardo Provide r First Name Marshall Refertania batres Provide r Last Name Irvin Referri medardo Provide r Special ity Orthopedic Surgery Referre d [facility] Referre d Address [address] [facility] [place],[address],U S Procedu re 1 Injection major joint/bursa () Procedu re 2 NEEDLE LOCALIZATION BY XRAY ([id number]) General Notes Rocío Christianson 11/29/2024 01:14:04 PM >Ian Kayla 12/16/2024 11:56:08 AM > AETNA ACTIVE AND EFFECTIVE 10/19/23 PER [employer]. NO AUTHORIZATION REQUIRED PER AETNA CPT CODE CDL DRIVER. SCANNED INTO CHART AND FAXED TO [facility].Sammy Kelly 12/16/2024 12:45:19 PM > Referra l Priorit y Routine Reason PLEASE SCHEDULE SAYRA Zamorano AN APPT WITH DR MYRANDA JOEL Diagnosis 1 Pain due to internal orthopedic prosthetic devices, implants and grafts, initial encounter (T84.84XA) Referral Organization [facility] Referring Provider First Name Nick Referring Provider Last Name Sonal Referring Provider Speciality Physician Proposal Review Analyst Referred Organization [facility] Referral Dept General Notes Myriam Coulter 10:54:17 AM >FAXED TO [facility] REFERRAL DEPT Referral Priority Routine Medications Medication SIG (Take, Route, Fr equency, Duration) Notes Start Date End Date Status temazepam Active Zanaflex Not-Taking Topamax Active bumetanide Active allopurinol Active oxyCODONE Active magnesium oxide Acti ve cefdinir Active gabapentin Active Symbicort Not-Taking Mounjaro Not-Taking topiramate Not-Takin g pantoprazole Active Fosamax Active albuterol Not-Taking Social History Tobacco Use: Social History Observation Description Date Details (start date - stop date) Never Smoker NA - NA AUDIT-C (Standard) Question Answer Notes Did you have a drink containing alcohol in the p ast year? No Points 0 Interpretation Negative Tobacco Control (Standard) Question Answer Notes Tobacco use: Nonsmoker Problems Problem Type SNOMED Code ICD Code Onset Dates Problem Status W/U Status Risk Notes Problem Unilateral primary osteoarthritis, left hip (M16.12) Active confirmed Problem 016694074079008 Effusion, left knee (M25.462) Active confirmed Problem 48272696 Pain in left hip (M25.552) Active confirmed Problem 1494887072 Pain due to internal orthopedic prosthetic devices, implants and grafts, initial encounter (T84.84XA) Active confirmed Problem 210440694593 Presence of left artificial knee joint (Z96.652) Active confirmed Problem 212121965515 Presence of unspecified artificial knee joint (Z96.659) Active confirmed Problem 8432723921 Acute pain of left knee (M25.562) Active confirmed Vital Signs Height 63 in 02/20/2025 Weight 212 lbs 02/20/2025 BMI 37.55 02/20/2025 Encounters Encounter Location Date Provider Diagnosis [facility] [address] [place] [address] 02/20/2025 Marshall Bryan Pain due to internal orthopedic prosthetic devices, implants and grafts, initial encounter T84.84XA ; Unilateral primary osteoarthritis, left hip M16.12 and Presence of left artificial knee joint Z96.652 [facility] [address] [place] [address] 09/26/2024 Sage Alfaro Acute pain of left knee M25.562 ; Pain due to internal orthopedic prosthetic devices, implants and grafts, initial encounter T84.84XA and Presence of left artificial knee joint Z96.652 [facility] [address] [place] [address] 10/31/2024 Sage Alfaro Presence of left artificial knee joint Z96.652 and Pain due to internal orthopedic prosthetic devices, implants and grafts, initial encounter T84.84XA [facility] [address] [place] [address] 11/14/2024 Araceliean Edwards Effusion, left knee M25.462 [facility] [address] [place] [address] 11/28/2024 Marshall Bryan Pain due to internal orthopedic prosthetic devices, implants and grafts, initial encounter T84.84XA ; Pain in left hip M25.552 and Presence of left artificial knee joint Z96.652 [facility] [address] [facility] [address] 01/02/2025 Marshall Bryan Pain in left hip M25.552 ; Pain due to internal orthopedic prosthetic devices, implants and grafts, initial encounter T84.84XA and Unilateral primary osteoarthritis, left hip M16.12 [facility] [address] [place] [address] 01/05/2025 Marshall Bryan Unilateral primary osteoarthritis, left hip M16.12 Assessments Encounter Date Diagnosis (ICD Code) Assessment Notes Treatment Notes Treatment Clinical Notes Section Notes 09/26/2024 Pain due to internal orthopedic prosthetic devices, implants and grafts, initial encounter (ICD-10 - T84.84XA) Painful left total knee arthroplasty 09/26/2024 Acute pain of left knee (ICD-10 - M25.562) Painful left total knee arthroplasty 10/31/2024 Presence of left artificial knee joint (ICD-10 - Z96.652) Painful left total knee arthroplasty 11/14/2024 Effusion, left knee (ICD-10 - M25.462) Painful left TKA History of infected left TKA 11/28/2024 Pain in left hip (ICD-10 - M25.552) Painful left total knee arthroplasty Left hip pain Left hip osteoarthritis 11/28/2024 Pain due to internal orthopedic prosthetic devices, implants and grafts, initial encounter (ICD-10 - T84.84XA) Painful left total knee arthroplasty Left hip pain Left hip osteoarthritis 01/05/2025 Unilateral primary osteoarthriti s, left hip (ICD-10 - M16.12) 02/20/2025 Unilateral primary osteoarthriti s, left hip (ICD-10 - M16.12) Left hip pain Left hip osteoarthritis Painful left total knee arthroplasty 02/20/2025 Pain due to internal orthopedic prosthetic devices, implants and grafts, initial encounter (ICD-10 - T84.84XA) Left hip pain Left hip osteoarthritis Painful left total knee arthroplasty 01/02/2025 Pain in left hip (ICD-10 - M25.552) Painful left total knee arthroplasty Left hip pain Left hip osteoarthritis 01/02/2025 Pain due to internal orthopedic prosthetic devices, implants and grafts, initial encounter (ICD-10 - T84.84XA) Painful left total knee arthroplasty Left hip pain Left hip osteoarthritis 02/20/2025 Presence of left artificial knee joint (ICD-10 - Z96.652) Left hip pain Left hip osteoarthritis Painful left total knee arthroplasty 11/28/2024 Presence of left artificial knee joint (ICD-10 - Z96.652) Painful left total knee arthroplasty Left hip pain Left hip osteoarthritis 01/02/2025 Unilateral primary osteoarthriti s, left hip (ICD-10 - M16.12) Painful left total knee arthroplasty Left hip pain Left hip osteoarthritis 10/31/2024 Pain due to internal orthopedic prosthetic devices, implants and grafts, initial encounter (ICD-10 - T84.84XA) Painful left total knee arthroplasty 09/26/2024 Presence of left artificial knee joint (ICD-10 - Z96.652) Painful left total knee arthroplasty 02/20/2025 Other [...] of perioperative infection. Will refer her to [facility] at this time. Ice and anti-inflammatory as needed for pain. Activity modification as needed for pain. Weightbearing as tolerated. All questions and concerns were addressed. Patient was in agreement with the treatment plan. Will plan to see the patient back on as-needed basis. Left hip pain Left hip osteoarthritis Painful left total knee arthroplasty 09/26/2024 Other I discussion wi th the patient regarding her left painful total knee arthroplasty. Overall her clinical picture appears pretty good. No obvious clinical infection. X-rays are stable. Do recommend starting with infection workup. Discussed with patient that I do not provide revision services. If we are concerned about infection we will have her see one of our joint specialist. Follow-up in 6 weeks Painful left total knee arthroplasty 10/31/2024 Other I discussion today with Renuka regarding her left painful total knee arthroplasty. Did review her labs. Her most recent CRP was slightly elevated as well as her ESR. No evidence clinically of infection. 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 She has been off antibiotics. We did discuss revision surgery in detail with her. She does not want to drive down to [place]. Did discuss that revision surgery would be quite extensive requiring explantation of implants and antibiotic spacer. She would also need a knee aspiration to confirm chronic infection prior to procedure. Will have her see Dr. Bryan for surgical consultation on revision arthroplasty. Will hold off on aspirating today until she sees him. Painful left total knee arthroplasty 11/14/2024 Other Discussed treatment options with patient. At this time we are recommending arthrocentesis of left knee be completed today in office as patient does have history of persistent pain to the left knee as well as elevated ESR and CRP labs. Arthrocentesis completed in office and revealed 8 cc of clear, light yellow synovial fluid which was sent to lab for cell count and culture. Patient to continue activity modification, rest, ice, elevation, and use of anti-inflammatori es as needed for pain control. We are trying to obtain most recent A1c from her primary care provider. If A1c from within the last 3 months available, we will get A1c lab drawn prior to next appointment. Patient was in agreement treatment plan. All questions and concerns were addressed at the time of the appointment. Will plan to see patient back in 2 weeks for repeat clinical evaluation and to review lab results. Patient was encouraged call the office with any questions or concerns in the meantime. Patient was also encouraged to contact her infectious disease doctor and discuss recent hold on doxycycline and if they would like her to restart it. Patient gave verbal understanding of this recommendation. Painful left TKA History of infected left TKA 11/28/2024 Other Discussed nonoperative and operative interventions with patient. Patient continues to have significant pain in her left knee despite nonsurgical management including ice, anti-inflammatori es, activity modification, home exercise program, and physical therapy. Pain is affecting her ADLs and quality of life. Her knee pain was reproduced with hip motion and her radiographs of her left hip demonstrate end-stage osteoarthritis of the left hip. Assessment for infection was negative regarding her left total knee. Discussed with patient that she could benefit from a diagnostic and therapeutic left hip intra-articular injection to assist with pain relief and to help determine the source of her pain. Discussed procedure, risk, benefits, and alternatives including but not limited to bleeding, infection, neurovascular injury, continued pain, need for additional surgery, and risks of anesthesia. Patient understood the risks and elected to proceed with surgery. Continue ice and anti-inflammatory as needed for pain. Activity modification as needed for pain. Activity as tolerated. All questions and concerns were addressed. Patient was in agreement with the treatment plan. This note will serve as clinical documentation for today's visit as well as H&P purposes. Painful left total knee arthroplasty Left hip pain Left hip osteoarthritis 01/02/2025 Other Discussed nonoperative and operative interventions with patient. Patient continues to have significant pain in her left knee despite nonsurgical management including ice, anti-inflammatori es, activity modification, home exercise program, and physical therapy. Pain is affecting her ADLs and quality of life. Her knee pain was reproduced with hip motion and her radiographs of her left hip demonstrate end-stage osteoarthritis of the left hip. Assessment for infection was negative regarding her left total knee. Discussed with patient that she could benefit from a diagnostic and therapeutic left hip intra-articular injection to assist with pain relief and to help determine the source of her pain. Discussed procedure, risk, benefits, and alternatives including but not limited to bleeding, infection, neurovascular injury, continued pain, need for additional surgery, and risks of anesthesia. Patient understood the risks and elected to proceed with surgery. Continue ice and anti-inflammatory as needed for pain. Activity modification as needed for pain. Activity as tolerated. All questions and concerns were addressed. Patient was in agreement with the treatment plan. This note will serve as clinical documentation for today's visit as well as H&P purposes. 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 09/26/2024 RSS: HIP LEFT POSTOP AP X-FIRE LAT, AP P HARRISON STANDING [id number] 11/28/2024 Insurance Providers Payer Name Payer Address Payer Phone Subscriber Number Group Number Insured Name Patient Relationship to Insured Coverage Start Date Coverage End Date Medicare Aetna [address] [place] [phone] [id number] RENUKA GRAHAM Self - patient is the insured [facility] of Medicaid [address] [place] [phone] [id number] RENUKA GRAHAM Self - patient is the insured Medical (General) History Medical History History ICD Code Asthma/COPD Yes Respiratory problems: Yes Heart Attack: Yes Heart problems: Yes Blood Clots: Yes High Blood Pressure: Yes Kidney trouble Yes Sleep apnea: Yes Latex Allergy Yes Drug Allergies: Yes Bariatric Surgery: Yes, Gastric CPAP Machine: Yes Surgical History Surgery Date(Month/Year) Gastric bypass Brian knee replacement
--- OUTSIDE RECORDS SUMMARY | 2025-04-11 11:52 | XMS_ITS | Encounter Summary ---
Author Organization [facility] Address [address] [place] [address] Care Team Providers Care Grain Sacker Name Role Phone Conrad Sosa DO Primary Care Provider [phone] Italo Ann MD Unavailable [phone] Source Comments In the event this information is protected by the Federal Confidentiality of Alcohol and Drug AbusePatient Records regulations: The Federal rules restrict any use of the information to criminally investigate or prosecute any alcohol or drug abuse patient.[facility] Encounter Details Date Type Department Care Team (Late st Contact Info) Description 2020 [place] [address] Provider, [facility] Medicare Coverage of Physical Exams Social History Tobacco Use Types Packs/Day Years [...] on filedocumented in this encounter Care Teams Grain Sacker Relationship Specialty Start Date End Date Conrad Sosa DO PCP - General Family Medicine 06/25/17 Italo Ann MD [address] [address] Primary Staff Physician Cardiology 01/04/19 documented as of this encounter
--- OUTSIDE RECORDS SUMMARY | 2025-04-11 11:52 | XMS_ITS | Patient Health Record ---
Author Organization [facility] in [place] Address [address] [place] [address] Care Team Providers Care Protection Specialist Name Role Phone Conrad Sosa Primary Care Provider Allergies Allergen (clinical drug ingredient) Drug/Non Drug Allergy documented on EMR Reaction Allergy Type Onset Date Status aspirin Aspirin anaphylaxis Drug Allergy Activ e Substance with sulfonamide structure and antibacterial mechanism of action (substance) Sulfa Antibiotics Unknown Drug Allergy Active Penicillin Unknown Drug Allergy Active Results Component Value Reference Range Notes CEA Reviewed date:12/30/2024 03:05:21 PM Interpretation: Performing Lab: Notes/Report: CEA 1.1 Reason For Referral Reason L knee surgery Diagnosis 1 Other chronic pain ( G89.29) Diagnosis 2 Pain in left knee (M 25.562) [facility]erral [facility] Referring Provider First Name Conrad Referring Provider Last Name Sosa Referring Provider Speciality Family [facility] tresa Referred Provider [facility]ty [facility] General Notes Conrad Sosa 10:08:03 AM >please call pt for appt Referral Priority Routine Reason Palliative care refe rral d/t multiple chronic conditions Diagnosis 1 Other chronic pain ( G89.29) Diagnosis 2 Chronic kidney disea se, stage 3 unspecified (N18.30) Diagnosis 3 Fibromyalgia (M79.7) Diagnosis 4 Type 2 diabetes marilu itus with other specified complication (E11.69) Referral Organization [facility] Referring Provider First Name Conrad Referring Provider Last Name Ian Referring Provider Speciality Family Med icimodesta Referred Provider Palliative Home [facility] Referred Provider Specialty Palliative C are Referral Priority Routine Reason Palliative care eval uation and treat Diagnosis 1 Chronic pain syndrom e (G89.4) Diagnosis 2 Primary hypertension (I10) Diagnosis 3 PVD (peripheral vasc ular disease) (I73.9) Diagnosis 4 Lymphedema, not else where classified (I89.0) Diagnosis 5 Pulmonary emphysema, unspecified emphysema type (J43.9) Diagnosis 6 Fibromyalgia (M79.7) Diagnosis 7 Chronic kidney disea se, stage 3 unspecified (N18.30) Diagnosis 8 Chronic fatigue, uns pecified (R53.82) Diagnosis 9 Type 2 diabetes marilu itus with other specified complication (E11.69) Referral Organization [facility] Referring Provider First Name Conrad Referring Provider Last Name Ian Referring Provider Speciality Family Med tresa Referred Provider [facility] Referred Provider Specialty Palliative C are Referral Priority Routine Medications Medication SIG (Take, Route, Frequency, Duration) Notes Start Date End Date Status Probiotic Active Plavix 75 MG 1 tablet Orally Once a day Not-Taking Magnesium 500 mg Not-Taking Albuterol Sulfate HFA 108 (90 Base) MCG/ACT INHALE 2 PUFFS EVERY 6 HOURS NEEDED for 25 Active Topiramate 50 MG 1 tablet Orally bid for 90 days 08/10/2024 Not-Taking Albuterol Sulfate (2.5 MG/3ML) 0.083% 3 mL as needed Inhalation every 6 hrs for 30 days 11/04/2024 Active Topiramate 200 MG 1 tablet Orally bid for 30 days 12/28/2024 Active tiZANidine HCl 4 mg TAKE TWO TABLETS orally bid for 30 days Active Symbicort 160-4.5 MCG/ACT 2 puffs Inhala tion Twice a day Not-Taking Temazepam 15 MG 1 capsule at bedtime as needed Orally Once a day for 90 days 12/01/2024 Active Ondansetron HCl 4 MG 1 tablet Orally tid prn N for 30 days 04/10/2025 Active Cyanocobalamin 1000 MCG/ML 1 mL Injectio n SQ qmonth for 30 days Active Breo Ellipta 100-25 MCG/ACT 1 puff Inhalation Once a day for 30 days 11/04/2024 Not-Taking Bumetanide 1 MG 1 tablet Orally BID for 90 days Active Vitamin D3 Not-Takin g Allopurinol 100 mg TAKE TWO TABLETS BY MOUTH DAILY FOR 90 DAYS for 90 days Active Vitamin D (Ergocalciferol) 1.25 MG (39481 UT) 1 capsule Orally qweek for 90 days 09/16/2024 Active Topiramate 100 MG 1 tablet Orally bid for 90 days 02/17/2024 Not-Taking Alendronate Sodium 70 mg TAKE ONE TABLET BY MOUTH ONCE WEEKLY for 84 Active FiberCon 625 MG 2 tablets as needed Orally Three times a day for 90 days Active Dicyclomine HCl 20 MG 1 tablet Orally Th ree times a day for 90 days 07/08/2023 Active diazePAM 5 MG 1 tablet as needed Orally PRN Active DULoxetine HCl 30 MG 1 capsule Orally On ce a day Not-Taking hydrOXYzine HCl 10 MG 1-2 tablets Orally every 6 hrs prn for 30 days Active Gabapentin 300 mg TAKE ONE CAPSULE BY MOUTH THREE TIMES A DAY for 90 Active Fluconazole 100 MG 1 tablet Orally dante y for 30 days 08/10/2024 Not-Taking Fluticasone Propionate 50 MCG/ACT 2 sprays Nasally Twice a day/PRN for 30 days PRN Active Fluconazole 100 MG 1 tablet Orally dante y for 7 days 03/22/2025 Active Ferrous Sulfate 325 (65 Fe) MG 1 tablet Orally Once a day Not-Taking Pantoprazole Sodium 40 mg TAKE ONE TABLE T BY MOUTH TWICE A DAY for 90 days Active oxyCODONE-Acetaminophen 5-325 MG 1 tablet as needed Orally bid for 30 days 02/16/2025 Active guaiFENesin-Codeine 100-10 MG/5ML 10 mL as needed Orally q8 hours for 30 days 11/04/2024 Not-Taking Ondansetron 4 MG 1/2-1 tablet on the tongue and allow to dissolve Orally Q8 hours/PRN nausea for 30 days PRN Active Magnesium Gluconate 500 mg TAKE ONE TABL ET BY MOUTH ONCE DAILY AT BEDTIME for 90 Active Fluticasone-Salmeterol 232-14 MCG/ACT 2 puffs Inhalation Twice a day for 30 days PRN Not-Taking PrePLUS 27-1mg Active Phentermine HCl 37.5 MG 1 tablet before breakfast Orally Once a day for 30 days 03/22/2025 Active Dulcolax 5 MG 1 tablet Orally Once a day for 30 days 04/10/2025 Active Immunizations Vaccine Route Administration Date Status Comme nts Flu, Fluad () (65134) 65 yrs+, single-dose syringe IM Intramuscular 08/07/2022 Administered Flu, Fluad (6060-8782) (93535) 65 yrs+, single-dose syringe IM Intramuscular 08/26/2023 Administered Flu, Fluad (91868) 65 yrs and older, single-dose syringe IM Intramuscular 08/10/2024 Administered Pneumococcal (Pneumovax 23) Unknown 08/02/2019 Administered Pneumococcal (Prevnar 13) Unknown 07/19/2018 Administer ed Social History Tobacco Use: Social History Observation Description Date Details (start date - stop date) Never Smoker NA - NA Tobacco Use/Smoking Question Answer Notes Patient is a nonsmoker Alcohol Screen (Audit-C) Question Answer Notes Did you have a drink containing alcohol in the p ast year? 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, 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) Active confirmed Problem 275154547 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) Active confirmed Problem Type 2 diabetes mellitus with other specified complication (E11.69) Active confirmed Problem 27095854 Vitamin D defici ency, unspecified (E55.9) Active confirmed Problem 667964956 Morbid (severe) obesity due to excess calories (E66.01) Active confirmed Problem 313040022 Obesity, unspeci fied (E66.9) Active confirmed Problem 266643278 Hypomagnesemia (E83.42) Active confirmed Problem 6140135 Primary insomnia (F51.01) Active confirmed Problem 946007997 Insomnia, unspec ified (G47.00) Active confirmed Problem 84124442 Other chronic pa in (G89.29) Active confirmed Problem 865687921 Chronic pain syn drome (G89.4) Active confirmed Problem 60164921 Left bundle-bran ch block, unspecified (I44.7) Active confirmed Problem 7670729 Other ill-define d heart diseases (I51.89) Active confirmed Problem 289639724 Lymphedema, not elsewhere classified (I89.0) Active confirmed Problem 02973325 Allergic rhiniti s, unspecified (J30.9) Active confirmed Problem 505924216 Mild intermitten t asthma with (acute) exacerbation (J45.21) Active confirmed Problem 943648745 Moderate persist ent asthma, uncomplicated (J45.40) Active confirmed Problem 221231993 Unspecified asth ma, uncomplicated (J45.909) Active confirmed Problem 34967252 Constipation, unspecified (K59.00) Active confirmed Problem 315513293 Bilateral primar y osteoarthritis of hip (M16.0) Active confirmed Problem 618907464980301 Unilateral prima ry osteoarthritis, left hip (M16.12) Active confirmed Problem Disorder of connective tissue (489789297) Systemic involvement of connective tissue, unspecified (M35.9) Active confirmed Problem 311520165 Spondylosis with out myelopathy or radiculopathy, cervical region (M47.812) Active confirmed Problem 215803860 Spondylosis with out myelopathy or radiculopathy, lumbar region (M47.816) Active confirmed Problem 41258326 Other interverte bral disc degeneration, lumbar region (M51.36) Active confirmed Problem 530845717 Fibromyalgia (M79.7) Active confirmed Problem Secondary hyperparathyroidism of renal origin (59476532) Secondary hyperparathyroidism of renal origin (N25.81) Active confirmed Problem 89872784 Dysphagia, unspecified (R13.10) Active confirmed Problem 55317266 Paresthesia of s kin (R20.2) Active confirmed Problem 59774376 Unsteadiness on feet (R26.81) Active confirmed Problem 04040292 Chronic fatigue, unspecified (R53.82) Active confirmed Problem 452916442 PVD (peripheral vascular disease) (I73.9) Active confirmed Problem 70165102 JEREMY (obstructive sleep apnea) (G47.33) Active confirmed Problem 415875503437723 Primary osteoarthritis of left knee (M17.12) Active confirmed Problem 25391375 Lumbar degenerat junior disc disease (M51.36) Active confirmed Problem 849473456 Diverticulosis (K57.90) Active confirmed Problem 729812588 Gastroesophageal reflux disease without esophagitis (K21.9) Active confirmed Problem 43621682 Pulmonary emphys rossy, unspecified emphysema type (J43.9) Active confirmed Problem 059972045 Primary osteoarthritis of both knees (M17.0) Active confirmed Problem 895126853 B12 deficiency (E53.8) Active confirmed Problem 354310274243289 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, unspecified site (M1A.00X0) Active confirmed Problem 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0-36.9, adult (Z68.36) Active confirmed Problem 812407234 Body mass index [BMI] 37.0-37.9, adult (Z68.37) Active confirmed Problem 031742622 Body mass index [BMI] 38.0-38.9, adult (Z68.38) Active confirmed Problem 992607069 Body mass index [BMI] 40.0-44.9, adult (Z68.41) Active confirmed Vital Signs Heart Rate 75 /min 04/10/2025 Respiratory Rate 16 /min 04/10/2025 Oximetry 97 % 04/10/2025 Blood pressure diastolic 70 mm Hg 04/10/2025 Height 63 in 04/10/2025 Blood pressure systolic 122 mm Hg 04/10/2025 Weight 211.6 lbs 04/10/2025 BMI 37.48 kg/m2 04/10/2025 Procedures Procedure Date Ordered Date Performed Result Body Sit e EKG w Interp & Report - performed 01/02/2025 01/02/2025 N/ A Encounters Encounter Location Date Provider Diagnosis [facility] [address] [place] [address] 01/02/2025 Conrad Sosa Morbid (severe) obes ity due to excess calories E66.01 ; Body mass index [BMI] 38.0-38.9, adult Z68.38 ; Obesity, class 2 E66.812 ; Encounter for other preprocedural examination Z01.818 ; Unilateral primary osteoarthritis, left hip M16.12 ; Acute upper respiratory infection, unspecified J06.9 ; Dysphagia, unspecified R13.10 and Left bundle-branch block, unspecified I44.[address] [address] 02/16/2025 Conrad Soas B12 deficiency E53.8 ; Pain in left knee M25.562 ; Other chronic pain G89.29 ; Morbid (severe) obesity due to excess calories E66.01 ; Body mass index [BMI] 38.0-38.9, adult Z68.38 ; Obesity, class 2 E66.812 and Nontoxic multinodular goiter E04.[address] [address] 03/22/2025 Conrad Sosa Candidiasis of skin and nail B37.2 ; Chest pain, unspecified R07.9 ; Abnormal weight gain R63.5 ; Morbid (severe) obesity due to excess calories E66.01 ; Body mass index [BMI] 38.0-38.9, adult Z68.38 and Obesity, class [address] [address] 04/10/2025 Conrad Sosa Epigastric pain R10. 13 ; Nausea with vomiting, unspecified R11.2 ; Other constipation K59.09 ; Bitten by cat, initial encounter W55.01XA ; Morbid (severe) obesity due to excess calories E66.01 ; Body mass index [BMI] 37.0-37.9, adult Z68.37 and Obesity, class [address] [address] 10/10/2024 Conrad Sosa Encounter for screen ing mammogram for malignant neoplasm of breast Z12.31 ; B12 deficiency E53.8 ; Morbid (severe) obesity due to excess calories E66.01 ; Body mass index [BMI] 38.0-38.9, adult Z68.38 ; Obesity, class 2 E66.812 ; Pain in left knee M25.562 ; Other chronic pain G89.29 ; Vitamin D deficiency, unspecified E55.9 ; Other constipation K59.09 ; Idiopathic chronic gout without tophus, unspecified site M1A.00X0 and Pain in right foot M79.[address] [address] 11/04/2024 Conrad Sosa Mild intermittent as thma with (acute) exacerbation J45.21 ; Vitamin D deficiency, unspecified E55.9 ; Chronic pain syndrome G89.4 ; B12 deficiency E53.8 ; Morbid (severe) obesity due to excess calories E66.01 ; Chronic kidney disease, stage 3b N18.32 and Body mass index [BMI] 37.0-37.9, adult Z68.[address] [address] 12/05/2024 Conrad Sosa B12 deficiency E53.8 ; Morbid (severe) obesity due to excess calories E66.01 ; Body mass index [BMI] 37.0-37.9, adult Z68.37 ; Obesity, class 2 E66.812 ; Pain in left knee M25.562 ; Other chronic pain G89.29 ; Unilateral primary osteoarthritis, left hip M16.12 ; Essential (primary) hypertension I10 ; Anesthesia of skin R20.0 ; Paresthesia of skin R20.2 and Chronic kidney disease, stage 3b N18.[address] [address] 12/28/2024 Conrad Sosa Unilateral primary osteoarthritis, left hip M16.12 ; Pain in left knee M25.562 ; Other chronic pain G89.29 ; Abnormal weight gain R63.5 ; B12 deficiency E53.8 ; Morbid (severe) obesity due to excess calories E66.01 ; Body mass index [BMI] 38.0-38.9, adult Z68.38 ; Obesity, class 2 E66.812 and Allergic rhinitis, unspecified J30.[address] [address] 06/15/2024 Conrad Sosa B12 deficiency E53.8 ; Vitamin D deficiency E55.9 ; Pure hypercholesterolemia E78.00 ; Primary insomnia F51.01 ; Pain in left knee M25.562 ; Other chronic pain G89.29 ; Abnormal weight gain R63.5 ; 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 inflammatory arthritis and tophaceous disease E79.0 ; Metabolic syndrome E88.810 ; Morbid (severe) obesity due to excess calories E66.01 ; Body mass index [BMI] 38.0-38.9, adult Z68.38 and Chronic kidney disease, stage 3b N18.[address] [address] 07/13/2024 Conrad Sosa Abnormal weight gain R63.5 ; Pain in left knee M25.562 ; Morbid (severe) obesity due to excess calories E66.01 ; Body mass index [BMI] 38.0-38.9, adult Z68.38 ; Obesity, class 2 E66.812 ; Unspecified Eustachian tube disorder, bilateral H69.93 and Constipation, unspecified K59.[address] [address] 08/10/2024 Conrad Sosa Pain in left knee M2 5.562 ; Other chronic pain G89.29 ; Abnormal weight gain R63.5 ; Primary insomnia F51.01 ; Paresthesia of skin R20.2 ; Other sites of candidiasis B37.89 ; B12 deficiency E53.8 ; Encounter for immunization Z23 ; Morbid (severe) obesity due to excess calories E66.01 ; Body mass index [BMI] 38.0-38.9, adult Z68.38 and Obesity, class [address] [address] 09/12/2024 Conrad Sosa Pain in left knee M2 5.562 ; Other chronic pain G89.29 ; B12 deficiency E53.8 ; Morbid (severe) obesity due to excess calories E66.01 ; Body mass index [BMI] 38.0-38.9, adult Z68.38 ; Obesity, class 2 E66.812 ; Vitamin D deficiency, unspecified E55.9 ; Pure hypercholesterolemia E78.00 and Chronic kidney disease, stage 3b N18.[address] [address] 01/12/2025 Conradamador Sosa Hypotension due to d rugs I95.2 ; Bradycardia, unspecified R00.1 ; Morbid (severe) obesity due to excess calories E66.01 ; Body mass index [BMI] 38.0-38.9, adult Z68.38 ; Obesity, class 2 E66.812 ; Other ill-defined heart diseases I51.89 ; Unilateral primary osteoarthritis, left hip M16.12 ; Pain in left knee M25.562 ; Other chronic pain G89.29 ; Chronic kidney disease, unspecified N18.9 ; Anemia in chronic kidney disease D63.1 and Rash and other nonspecific skin eruption R21 [facility] [address] [place] [address] 01/20/2025 [facility] [address] [place] [address] 02/24/2025 [facility] [address] [place] [address] 03/22/2025 [facility] [address] [place] [address] 03/29/2025 [facility] [address] [place] [address] 11/28/2024 Conradamador Sosa Vitamin D deficiency , unspecified E55.9 ; B12 deficiency E53.8 ; Mild intermittent asthma with (acute) exacerbation J45.21 ; Unspecified asthma, uncomplicated J45.909 ; Idiopathic chronic gout without tophus, unspecified site M1A.00X0 ; Diarrhea, unspecified R19.7 ; Itchy skin L29.9 ; Gastro-esophageal reflux disease without esophagitis K21.9 ; Primary insomnia F51.01 ; Abnormal weight gain R63.5 and Chronic pain syndrome G89.4 [facility] [address] [place] [address] 11/28/2024 [facility] [address] [place] [address] 12/22/2024 [facility] [address] [place] [address] 01/06/2025 [facility] [address] [place] [address] 01/09/[address] [facility] [address] [place] [address] 01/18/[address] [facility] [address] [place] [address] 09/13/[address] [facility] [address] [place] [address] 09/16/2024 Conrad Sosa Other sites of richard diasis B37.89 [facility] [address] [place] [address] 09/27/[address] [facility] [address] [place] [address] 10/28/[address] [facility] [address] [place] [address] 11/12/2024 Conrad Sosa Vitamin D deficiency , unspecified E55.9 [facility] [address] [place] [address] 11/22/2024 Conrad Sosa B12 deficiency E53.8 [facility] [address] [place] [address] 06/23/[address] [facility] [address] [place] [address] 06/24/2024 Conrad Sosa Diarrhea, unspecifie d R19.7 [facility] [address] [place] [address] 08/10/[address] [facility] [address] [place] [address] 08/12/2024 Conrda Sosa Anemia in chronic ki dney disease D63.1 [facility] [address] [place] [address] 08/29/[address] [facility] [address] [place] [address] 09/08/[address] [facility] [address] [place] [address] 04/19/2024 Conrad Sosa Diarrhea, unspecifie d R19.7 [facility] [address] [place] [address] 04/25/2024 Conrad Valentinering Hypomagnesemia E83.[address] [facility] [address] [place] [address] 05/18/2024 Conrad Sosa Abnormal weight gain R63.5 [facility] [address] [place] [address] 05/19/2024 Conrad Sosa Pain in left knee M2 5.[address] [place] [address] 06/15/2024 Conrad Sosa Primary insomnia F51 .01 [address] [place] [address] 05/04/2024 Conrad Sosa Family history of ma lignant neoplasm, unspecified Z80.9 ; Morbid (severe) obesity due to excess calories E66.01 ; Body mass index [BMI] 37.0-37.9, adult Z68.37 ; Pain in left knee M25.562 ; Arthritis due to other bacteria, unspecified knee M00.869 ; Abnormal weight gain R63.5 and Type 2 diabetes mellitus with other specified complication E11.69 Assessments Encounter Date Diagnosis (ICD Code) Assessment Notes Treatment Notes Treatment Clinical Notes Section Notes 05/04/2024 Morbid (severe) obes ity due to excess calories (ICD-10 - E66.01) diet/exercise 05/04/2024 Family history of malignant neoplasm, unspecified (ICD-10 - Z80.9) 06/15/2024 Vitamin D deficiency (ICD-10 - E55.9) lab - adjust tx based on results 06/15/2024 B12 deficiency (ICD- 10 - E53.8) continue shots and monitor lab diet 07/13/2024 Pain in left knee (ICD-10 - M25.562) oarrs ok continue percocet f/u ID and ortho continue abx rec weight loss 07/13/2024 Abnormal weight gain (ICD-10 - R63.5) increase topamax to 150 am and 100 pm d/c adipex - not helping diet/exercise 08/10/2024 Other chronic pain (ICD-10 - G89.29) 08/10/2024 Pain in left knee (ICD-10 - M25.562) oarrs ok refer to dr romero at [facility] for a second opinion - d/w pt that if they wont take her she may need to go to [facility] rtc 3 months 09/12/2024 Other chronic pain (ICD-10 - G89.29) 09/12/2024 Pain in left knee (ICD-10 - M25.562) f/u ID (dr odette curiel) - continue doxy for 21 days rec weight loss rec pt call dr romero for appt oarrs ok monitor tox screen 10/10/2024 Encounter for screen ing mammogram for malignant neoplasm of breast (ICD-10 - Z12.31) 10/10/2024 B12 deficiency (ICD- 10 - E53.8) continue B12 shots monitor lab diet stable 11/04/2024 Vitamin D deficiency , unspecified (ICD-10 - E55.9) monitor lab - adjust med if abnormal diet 11/04/2024 Mild intermittent asthma with (acute) exacerbation (ICD-10 - J45.21) pt states she doesnt like the advair - makes her feel odd using alb oarrs ok rtc prn 12/05/2024 Morbid (severe) obes ity due to excess calories (ICD-10 - E66.01) diet/exercise due to HTN 12/05/2024 B12 deficiency (ICD- 10 - E53.8) monitor lab stable 12/28/2024 Unilateral primary osteoarthritis, left hip (ICD-10 - M16.12) f/u ortho for injection rec weight loss 12/28/2024 Pain in left knee (ICD-10 - M25.562) oarrs ok continue pain med f/u ortho as directed rec weight loss 01/02/2025 Morbid (severe) obes ity due to excess calories (ICD-10 - E66.01) diet/exercise 01/02/2025 Body mass index [BMI ] 38.0-38.9, adult (ICD-10 - Z68.38) 01/12/2025 Hypotension due to drugs (ICD-10 - I95.2) monitor bp resolved probably due to anesthesia from her hip injection 01/12/2025 Bradycardia, unspecified (ICD-10 - R00.1) resolved monitor and call if worsens probably due to anesthesia from her hip injection 02/16/2025 Pain in left knee (ICD-10 - M25.562) oars ok continue abx and f/u ID f/u ortho as directed rec weight loss monitor tox screen 02/16/2025 B12 deficiency (ICD- 10 - E53.8) b12 shot monthly diet/exercise monitor labs 03/22/2025 Chest pain, unspecif ied (ICD-10 - R07.9) prob muscular and stress related 03/22/2025 Candidiasis of skin and nail (ICD-10 - B37.2) rtc prn keep area clean and dry rec weight loss 04/10/2025 Epigastric pain (ICD -10 - R10.13) ?gastritis vs PUD vs PBSO vs constipation vs gastroparesis vs ? continue ppi bid erx zofran BRAT no pop rtc prn hydrate 04/10/2025 Nausea with vomiting , unspecified (ICD-10 - R11.2) erx zofran 04/19/2024 Diarrhea, unspecifie d (ICD-10 - R19.7) 04/25/2024 Hypomagnesemia (ICD- 10 - E83.42) 05/18/2024 Abnormal weight gain (ICD-10 - R63.5) 05/19/2024 Pain in left knee (ICD-10 - M25.562) 06/15/2024 Primary insomnia (ICD-10 - F51.01) 06/24/2024 Diarrhea, unspecifie d (ICD-10 - R19.7) 08/12/2024 Anemia in chronic kidney disease (ICD-10 - D63.1) 09/16/2024 Other sites of candidiasis (ICD-10 - B37.89) 11/12/2024 Vitamin D deficiency , unspecified (ICD-10 - E55.9) 11/22/2024 B12 deficiency (ICD- 10 - E53.8) 11/28/2024 Vitamin D deficiency , unspecified (ICD-10 - E55.9) 11/28/2024 B12 deficiency (ICD- 10 - E53.8) 04/10/2025 Other constipation (ICD-10 - K59.09) erx dulcolox diet continue with fiber 03/22/2025 Abnormal weight gain (ICD-10 - R63.5) oarrs ok rtc 1 month diet/exercise 02/16/2025 Other chronic pain (ICD-10 - G89.29) 01/02/2025 Obesity, class 2 (ICD-10 - E66.812) 01/12/2025 Morbid (severe) obes ity due to excess calories (ICD-10 - E66.01) diet/exercise 12/28/2024 Other chronic pain (ICD-10 - G89.29) 11/04/2024 Chronic pain syndrom e (ICD-10 - G89.4) pt sees surgeon in about 10 days oarrs ok monitor tox screen decrease pain med use when further tx determined for knee 12/05/2024 Body mass index [BMI ] 37.0-37.9, adult (ICD-10 - Z68.37) 09/12/2024 B12 deficiency (ICD- 10 - E53.8) shot given today monitor lab 10/10/2024 Morbid (severe) obes ity due to excess calories (ICD-10 - E66.01) diet/exercise due to HTN 08/10/2024 Abnormal weight gain (ICD-10 - R63.5) increase topamax diet/exercise 06/15/2024 Pure hypercholesterolemia (ICD-10 - E78.00) diet/exercise statin if worsens 07/13/2024 Morbid (severe) obes ity due to excess calories (ICD-10 - E66.01) diet/exercise 05/04/2024 Body mass index [BMI ] 37.0-37.9, adult (ICD-10 - Z68.37) 05/04/2024 Pain in left knee (ICD-10 - M25.562) oarrs ok continue percocet monitor tox screen rec weight loss f/u surgeon as directed 06/15/2024 Primary insomnia (ICD-10 - F51.01) continue restoril oarrs ok sleep hygeine 07/13/2024 Body mass index [BMI ] 38.0-38.9, adult (ICD-10 - Z68.38) 08/10/2024 Primary insomnia (ICD-10 - F51.01) continue meds oarrs ok d/w pt that she needs to tell her son not to wake her if she is sleeping and try and find another way so her dog doesnt wake her up sleep hygeine d/w pt that med adjustments will not help her problem 09/12/2024 Morbid (severe) obes ity due to excess calories (ICD-10 - E66.01) diet/exercise due to HTN 12/05/2024 Obesity, class 2 (ICD-10 - E66.812) 12/28/2024 Abnormal weight gain (ICD-10 - R63.5) increase med diet/exercise 11/04/2024 B12 deficiency (ICD- 10 - E53.8) monitor lab diet stable 10/10/2024 Body mass index [BMI ] 38.0-38.9, adult (ICD-10 - Z68.38) 01/02/2025 Encounter for other preprocedural examination (ICD-10 - Z01.818) EKG today with LBBB and PVC d/w pt and preop pt medically cleared for her L hip injection in 3 days - note to be faxed to [phone] 02/16/2025 Morbid (severe) obes ity due to excess calories (ICD-10 - E66.01) diet/exercise due to HTN 01/12/2025 Body mass index [BMI ] 38.0-38.9, adult (ICD-10 - Z68.38) 03/22/2025 Morbid (severe) obes ity due to excess calories (ICD-10 - E66.01) diet/exercise due to heart dz 04/10/2025 Bitten by [facility] encounter (ICD-10 - W55.01XA) continue doxy she is on for her knee rtc if s/s of streaking/f/warm th/etc 11/28/2024 Mild intermittent asthma with (acute) exacerbation (ICD-10 - J45.21) 11/28/2024 Unspecified asthma, uncomplicated (ICD-10 - J45.909) 04/10/2025 Morbid (severe) obes ity due to excess calories (ICD-10 - E66.01) diet/exercise 03/22/2025 Body mass index [BMI ] 38.0-38.9, adult (ICD-10 - Z68.38) 02/16/2025 Body mass index [BMI ] 38.0-38.9, adult (ICD-10 - Z68.38) 01/12/2025 Obesity, class 2 (ICD-10 - E66.812) 10/10/2024 Obesity, class 2 (ICD-10 - E66.812) 11/04/2024 Morbid (severe) obes ity due to excess calories (ICD-10 - E66.01) diet/exercise due to HTN/CHF/CKD 12/05/2024 Pain in left knee (ICD-10 - M25.562) continue pain meds stable rec weight loss f/u ortho to see how much her L hip OA is causing L knee pains 12/28/2024 B12 deficiency (ICD- 10 - E53.8) rtc as directed diet monitor lab 01/02/2025 Unilateral primary osteoarthritis, left hip (ICD-10 - M16.12) rec weight loss f/u ortho as directed for injection 08/10/2024 Paresthesia of skin (ICD-10 - R20.2) d/w pt I rec b/l UE/LE EMG - she will hold off ?raynauds ?increase gabapentin ?start procardia 09/12/2024 Body mass index [BMI ] 38.0-38.9, adult (ICD-10 - Z68.38) 07/13/2024 Obesity, class 2 (ICD-10 - E66.812) 06/15/2024 Pain in left knee (ICD-10 - M25.562) continue abx f/u ortho as directed oarrs ok continue percocet rec weight loss f/u ID as directed 05/04/2024 Arthritis due to oth er bacteria, unspecified knee (ICD-10 - M00.869) continue abx - tolerating well f/u ID as directed 06/15/2024 Other chronic pain (ICD-10 - G89.29) 05/04/2024 Abnormal weight gain (ICD-10 - R63.5) diet/exercise oarrs ok rec pt stop the adipex as it isnt helping and she isnt able to exercise much due to her knee problem rec NOOM paras to try and control cravings increase topamax to 100 bid and see if this helps her appetite 08/10/2024 Other sites of candidiasis (ICD-10 - B37.89) keep area clean and dry erx diflucan rtc prn 07/13/2024 Unspecified Eustachi an tube disorder, bilateral (ICD-10 - H69.93) continue antihistamine otc daily rec flonase ?singulair 09/12/2024 Obesity, class 2 (ICD-10 - E66.812) 01/02/2025 Acute upper respirat ory infection, unspecified (ICD-10 - J06.9) monitor for now call if s/s worsen rec claritin/flonase otc 12/28/2024 Morbid (severe) obes ity due to excess calories (ICD-10 - E66.01) 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 12/05/2024 Other chronic pain (ICD-10 - G89.29) 11/04/2024 Chronic kidney disea se, stage 3b (ICD-10 - N18.32) monitor bmp and urine microalbumin rec seeing nephrology stable bp control rec farxiga 10/10/2024 Pain in left knee (ICD-10 - M25.562) f/u ortho as directed rec weight loss continue pain med prn rtc 3 months oarrs ok 01/12/2025 Other ill-defined he art diseases (ICD-10 - I51.89) f/u cardio as directed stable DD monitor bp 02/16/2025 Obesity, class 2 (ICD-10 - E66.812) 03/22/2025 Obesity, class 2 (ICD-10 - E66.812) 04/10/2025 Body mass index [BMI ] 37.0-37.9, adult (ICD-10 - Z68.37) 11/28/2024 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, 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) 11/28/2024 Diarrhea, unspecifie d (ICD-10 - R19.7) 04/10/2025 Obesity, class 2 (ICD-10 - E66.812) 02/16/2025 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) monitor US yearly stable 01/12/2025 Unilateral primary osteoarthritis, left hip (ICD-10 - M16.12) f/u ortho after hip injection 11/04/2024 Body mass index [BMI ] 37.0-37.9, adult (ICD-10 - Z68.37) 12/05/2024 Unilateral primary osteoarthritis, left hip (ICD-10 - M16.12) f/u ortho for injection next month rec weight loss ?LINDSAY needed 12/28/2024 Body mass index [BMI ] 38.0-38.9, adult (ICD-10 - Z68.38) 01/02/2025 Dysphagia, unspecifi ed (ICD-10 - R13.10) rec EGD pt to call her ENT - dr santoro - for appt diet 10/10/2024 Other chronic pain (ICD-10 - G89.29) 09/12/2024 Vitamin D deficiency , unspecified (ICD-10 - E55.9) rec vit D 50k qweek monitor lab 08/10/2024 B12 deficiency (ICD- 10 - E53.8) b12 shot today and qmonth diet/exercise monitor labs 07/13/2024 Constipation, unspecified (ICD-10 - K59.00) diet fiber rec miralax ?linzess 06/15/2024 Abnormal weight gain (ICD-10 - R63.5) diet/exercise oarrs ok rtc 1 month 05/04/2024 Type 2 diabetes mellitus with other specified complication (ICD-10 - E11.69) 06/15/2024 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 inflammatory arthritis and tophaceous disease (ICD-10 - E79.0) diet monitor lab - goal <6 08/10/2024 Encounter for immunization (ICD-10 - Z23) 10/10/2024 Vitamin D deficiency , unspecified (ICD-10 - E55.9) uncontrolled but just started on tx - monitor lab and adjust med if needed 09/12/2024 Pure hypercholesterolemia (ICD-10 - E78.00) rec lipitor 10mg daily diet/exercise uncontrolled 01/02/2025 Left bundle-branch block, unspecified (ICD-10 - I44.7) rec pt f/u cardio soon and yearly bp check daily rec weight loss ?stress test/echo needed due to h/o CHF in past 12/28/2024 Obesity, class 2 (ICD-10 - E66.812) 12/05/2024 Essential (primary) hypertension (ICD-10 - I10) bp check daily controlled for age but meets criteria for HTN diet/exercise monitor labs meds if worsens 01/12/2025 Pain in left knee (ICD-10 - M25.562) f/u ortho as directed continue abx 11/28/2024 Itchy skin (ICD-10 - L29.9) 11/28/2024 Gastro-esophageal reflux disease without esophagitis (ICD-10 - K21.9) 01/12/2025 Other chronic pain (ICD-10 - G89.29) 12/05/2024 Anesthesia of skin (ICD-10 - R20.0) rec C spine xray and b/l UE EMG ?carpal tunnel vs cervical 12/28/2024 Allergic rhinitis, unspecified (ICD-10 - J30.9) continue claritin/flonase rec singulair if s/s worsen rtc prn 09/12/2024 Chronic kidney disea se, stage 3b (ICD-10 - N18.32) monitor f/u neph as directed - I dont think she has seen in awhile rec farxiga 10/10/2024 Other constipation (ICD-10 - K59.09) diet continue fiber rec miralax daily rtc prn 08/10/2024 Morbid (severe) obes ity due to excess calories (ICD-10 - E66.01) diet/exercise due to HTN/etc 06/15/2024 Metabolic syndrome (ICD-10 - E88.810) diet/exercise restart mounjaro rtc 1 month 06/15/2024 Morbid (severe) obes ity due to excess calories (ICD-10 - E66.01) diet/exercise 08/10/2024 Body mass index [BMI ] 38.0-38.9, adult (ICD-10 - Z68.38) 12/05/2024 Paresthesia of skin (ICD-10 - R20.2) see above 10/10/2024 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, 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) controlled diet uric acid yearly - goal <7 01/12/2025 Chronic kidney disea se, unspecified (ICD-10 - N18.9) monitor bmp 11/28/2024 Primary insomnia (ICD-10 - F51.01) 11/28/2024 Abnormal weight gain (ICD-10 - R63.5) 01/12/2025 Anemia in chronic kidney disease (ICD-10 - D63.1) monitor 10/10/2024 Pain in right foot (ICD-10 - M79.671) rec xray to r/o stress fx tylenol prn 12/05/2024 Chronic kidney disea se, stage 3b (ICD-10 - N18.32) continue meds rec [facility] rec nephrology 08/10/2024 Obesity, class 2 (ICD-10 - E66.812) 06/15/2024 Body mass index [BMI ] 38.0-38.9, adult (ICD-10 - Z68.38) 06/15/2024 Chronic kidney disea se, stage 3b (ICD-10 - N18.32) monitor bp control rec referral to nephrology start [facility] 01/12/2025 Rash and other nonspecific skin eruption (ICD-10 - R21) no s/s of zoster monitor avoid itching 11/28/2024 Chronic pain syndrom e (ICD-10 - G89.4) 11/04/2024 Other 12/05/2024 Other rec palliative care as she has multiple medical conditions and multiple meds that need monitored closely rtc 3 months Plan Of Treatment Pending Test Test Name Order Date CMP (COMPLETE METABOLIC PANEL) 4 AMYLASE 04/10/2025 FERRITIN 08/12/2024 IRON, TOTAL 08/12/2024 LIPASE 04/10/2025 LIPID PANEL (CHOL/TRIG/HDL/LDL) 06/15/20 24 UA (REFLEX URINALYSIS TO CULTURE) 2024 URIC ACID 06/15/2024 VITAMIN D, 25 LEVEL (TOTAL) 06/15/2024 XR Abdomen AP (1 view) (KUB) * DEXA Axial Skeleton (hips, pelvis, spine )* 03/05/2023 MRI Shoulder RT w/o contrast 02/17/2024 EKG w Interp & Report - performed 2024 Echocardiogram 2D M Mode w/ Doppler (jose sure RVSP) 11/27/2023 C DIFF TOX PCR STOOL 07/08/2023 VITAMIN B12 LEVEL AND FOLATE (FOLIC ACID ) 06/15/2024 MAMM SCREEN BILAT TIRSO 3D GLOBAL* 2023 CMP (COMP MET GONZALEZ) w/eGFR CKD-EPI 2024 CBC WITH DIFF 04/10/2025 Next Appt Details Provider Name:Conrad batres, 04/19/2025 01:00:00 PM, [address] [place], [address], Provider Name:Conrad batres, 05/19/2025 11:30:00 AM, [address] [place], [address], Insurance Providers Payer Name Payer Address Payer Phone Subscriber Number Group Number Insured Name Patient Relationship to Insured Coverage Start Date Coverage End Date [employer] [address] [place], [place] [id number] Renuka Padron Self - patient is the insured 2 MED[place]ID [place] 2ND INS [address] [place], [place] [id number] Rneuka Padron Self - patient is the insured Medications Administered Medication Instructions Date of Administration Dosage Notes Cyanocobalamin 06/06/2022 1 mL Cyanocobalamin 07/10/2022 1 mL Cyanocobalamin 08/07/2022 1 mL Cyanocobalamin 09/15/2022 1 mL Cyanocobalamin 12/04/2022 1 mL Cyanocobalamin 12/30/2023 1 mL Cyanocobalamin 04/06/2024 1 mL patient br ings own b12 Cyanocobalamin 06/15/2024 1 mL Cyanocobalamin 08/10/2024 1 mL Cyanocobalamin 09/12/2024 1 mL Cyanocobalamin 10/10/2024 1 mL Cyanocobalamin 11/04/2024 0.5 mL Cyanocobalamin 12/05/2024 1 mL Cyanocobalamin 12/28/2024 1 mL Cyanocobalamin 02/16/2025 1 mL Medical (General) History Medical History History ICD Code thyroid nodule asthma history of deep vein thormbosis history of pulmonary embolus cobalamin deficiency gastroparesis syndrome vitamin D deficiency allergic thinitis intolerance to lactose 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 connective tissue disea se osteoarthritis of right knee joint congestive heart failure anemia in chronic kidney disease chronic gastritis morbid obesity hyperuricemia diverticulosis osteopenia JEREMY polyp of colon insomnia gastroesophageal reflux disease essential hypertension osteoarthritis of knee L DDD lumbar canal stenosis - L3/4 covid CKD-3b Surgical History Surgery Date(Month/Year) bariatric surgery - heart cath L knee replacement and 09/2022 5 esophagogastroduodenoscopy 08/02/2018 colonoscopy +hem and diverticulosis - re peat in 5 years per note 08/02/2018 biopsy of thyroid 02/25/2021 R knee replacement
--- OUTSIDE RECORDS SUMMARY | 2025-04-11 11:52 | XMS_ITS | Clinical Summary ---
Author Organization [facility] Address [address] [place] [address] Phone Care Team Providers Care Patient Accounting Representative Name Role Phone Conrad Sosa DO Primary Care Provider Allergies Active Allergy Reactions Criticality Noted Date Comments Aspirin Hives,Rash,Shortness of breath,Unknown High 02/24/2013 Latex Hives,Itching,Rash Low 09/23/2023 Penicillins Shortness of breath,Hives,Rash,Itching High 08/29/2009 Sulfa (Sulfonamide Antibiotics) Shortness of breath,Hives,Itching,Rash High 08/29/2009 Medications albuterol 2.5 mg /3 mL (0.083 %) nebulizer solution Take 3 mL (2.5 mg) by nebulization every 6 hours if needed for wheezing or shortness of breath. Active alendronate (Fosamax) 70 mg tablet Take 1 tablet (70 mg) by mouth every 7 days. 8 Active allopurinol (Zyloprim) 100 mg tablet Take 2 tablets (200 mg) by mouth once daily. 9 Active bumetanide (Bumex) 0.5 mg tablet Take 1 tablet (0.5 mg) by mouth 2 times a day. Active loratadine (Claritin) 10 mg tablet Take 1 tablet (10 mg) by mouth once daily as needed for allergies. Active clopidogrel (Plavix) 75 mg tablet Take 1 tablet (75 mg) by mouth once daily. 1 Active ferrous sulfate 324 mg (65 mg elemental iron) EC tablet (delayed release) Take 1 tablet (65 mg) by mouth once daily. 9 Active fluconazole (Diflucan) 100 mg tablet Take 1 tablet (100 mg) by mouth once daily. Active fluticasone (Flonase) 50 mcg/actuation nasal spray Administer 2 sprays into each nostril once daily. Active gabapentin (Neurontin) 300 mg capsule Take 1 capsule (300 mg) by mouth 3 times a day. Active hydrOXYzine HCL (Atarax) 10 mg tablet Take 1 tablet (10 mg) by mouth 3 times a day. 9 Active magnesium oxide (Mag-Ox) 400 mg (241.3 mg magnesium) tablet Take 1 tablet (400 mg) by mouth once daily. Active midodrine (Proamatine) 2.5 mg tablet Take 1 tablet (2.5 mg) by mouth 2 times a day as needed. 1 Active tirzepatide (Mounjaro) 2.5 mg/0.5 mL pen injector Inject under the skin. 2 Active ondansetron (Zofran) 4 mg tablet Take 1 tablet (4 mg) by mouth every 8 hours if needed for nausea or vomiting. 1 Active pantoprazole (ProtoNix) 40 mg EC tablet Take 1 tablet (40 mg) by mouth twice a day. 9 Active budesonide-form oteroL (Symbicort) 160-4.5 mcg/actuation inhaler Inhale 2 puffs twice a day. Active temazepam (Restoril) 30 mg capsule Take 1 capsule (30 mg) by mouth as needed at bedtime for sleep or anxiety. 9 Active tiZANidine (Zanaflex) 4 mg capsule Take 1 capsule (4 mg) by mouth 2 times a day. Active Active Problems Problem Noted Date Diagnosed Date Chronic right-sided congestive heart failure 03/2023 CKD (chronic kidney disease), stage III (Multi) 09/23/2023 Dizziness 09/23/2023 Edema 09/23/2023 Hypotension 09/23/2023 History of bariatric surgery 09/23/2023 Obstructive sleep apnea syndrome 09/23/2023 COPD (chronic obstructive pulmonary disease) (Mu lti) 03/17/2023 Dyspnea on exertion 05/27/2018 Pulmonary HTN (Multi) 07/06/2017 Immunizations Immunization Administration Dates Next Due Flu vaccine, quadrivalent, n o egg protein, age 6 month or greater (FLUCELVAX) 08/02/2019 Influenza, Seasonal, Quadriv alent, Adjuvanted 08/07/2022 Influenza, Unspecified 08/19/2020 Influenza, injectable, MDCK, quadrivalent 07/19/2018 Influenza, trivalent, adjuvanted 08/06/2020 Pneumococcal conjugate vacci ne, 13-valent (PREVNAR 13) 07/19/2018 Pneumococcal polysaccharide vaccine, 23-valent, age 2 years and older (PNEUMOVAX 23) 08/19/2020,08/02/2019,07/19/2019,12/17 Social History Tobacco Use Types Packs/Day Years Used Date Smoking Tobacco: Former Cigarettes Smokeless Tobacco: Never Tobacco Cessation:Counseling Given: Not Answered Alcohol Use Standard Drinks/Week Comments Yes 0 (1 standard drink = 0.6 oz pur e alcohol) rare Comments Unknown Sex and Gender Information Value Date Recorded Sex Assigned at Not on file Legal Sex Female 1:39 PM EST Gender Identity Not on file Sexual Orientation Not on file Last Filed Vital Signs Vital Sign Reading Time Taken Comments Blood Pressure 122/70 09/25/2022 1:14 PM EST Pulse 54 09/25/2022 1:14 PM EST Temperature - - Respiratory Rate - - Oxygen Saturation - - Inhaled Oxygen Concentration - - Weight 112 kg (248 lb) 09/25/2022 1:14 PM EST Height 160 cm (5' 3 ) 09/25/2022 1:14 PM EST Body Mass Index 43.93 09/25/2022 1:14 PM EST Plan of Treatment Health Maintenance Due Date Last Done Comments Bone Density Scan 1955 CT Colonography 1955 Colonoscopy 1955 Colorectal Cancer Screening 1955 Creatinine Level 1955 FIT-DNA (Cologuard) 1955 FIT 1955 Lipid Panel 1955 Medicare Annual Wellness Visit (AWV) 1955 Potassium Level 1955 Sigmoidoscopy 1955 Hepatitis C Screening 1973 CKD: Urine Protein Screening 1974 DTaP/Tdap/Td Vaccines (1 - Tdap) 1977 Mammogram 1995 Zoster Vaccines (1 of 2) 2005 RSV High Risk: (Elderly (60+) or Population) (1 - Risk 60-74 years 1-dose series) 2015 Echocardiogram 02/07/2021 02/08/2020 Diabetes Screening 03/19/2024 03/19/2023, 09/19/2022 COVID-19 Vaccine ( - season) 2024 Influenza Vaccine (Season Ended) 2025 08/07/2022, 08/19/2020, 08/06/2020, Additional history exists Pneumococcal Vaccine Completed 08/19/2020, 08/02/2019, 07/19/2019, Additional history exists HIB Vaccines Aged Out No longer eligi ble based on patient's age to complete this topic HPV Vaccines Aged Out No longer eligi ble based on patient's age to complete this topic Hepatitis A Vaccines Aged Out No long er eligible based on patient's age to complete this topic Hepatitis B Vaccines Aged Out No long er eligible based on patient's age to complete this topic IPV Vaccines Aged Out No longer eligi ble based on patient's age to complete this topic Meningococcal Vaccine Aged Out No angel nikki eligible based on patient's age to complete this topic Rotavirus Vaccines Aged Out No longer eligible based on patient's age to complete this topic Procedures Procedure Name Priority Date/Time Associated Diagnosis Comments ECHOCARDIOGRAM Routine 02/08/2020 from Last 3 Months or Most Recently Relevant to Health Maintenance Results * Echocardiogram (02/08/2020) 02/08/2020 [facility] - 02/08/2020 12:00 AM EDT [address], [address], [place] [address] TRANSTHORACIC ECHOCARDIOGRAM REPORT Patient Name: VILMA GRAHAM Marleni Physician: [id number] Luis Castanon MD Study Date: 02/08/2020 Referring Physician: [id number] Luis Castanon MD MRN/PID: [id number] PCP: Conrad Sosa Accession/Order#: [id number] Department Location: [facility] Date of : 1955 Fellow: Gender: F Nurse: Admit Date: Metrology Specialist: [place] Ceballos RDCS, RVT Height: 160.02 cm CC Report to: Weight: 111.59 kg Study Type: Echocardiogram BSA: 2.11 m2 Blood Pressure: 142 /80 mmHg Diagnosis/ICD: R06.02-Shortness of breath Indication: Right CHF, COPD, Diabetes, HTN, Edema, Forme Smoker, JEREMY, CKD-Stage IV, Morbid Obesity-s/p Gastric Bypass Procedure/CPT: Echo Complete w Full [id number] Study Detail: The following Echo studies were performed: 2D, M-Mode, Doppler and color flow. PHYSICIAN INTERPRETATION: Left Ventricle: The left ventricular systolic function is normal, with an estimated ejection fraction of 60-65%. The left ventricular cavity size is normal. Spectral Doppler shows an impaired relaxation pattern of left ventricular diastolic filling. Left Atrium: The left atrium is normal in size. Right Ventricle: The right ventricle is normal in size. There is normal right ventricular global systolic function. Right Atrium: The right atrium is normal in size. Aortic Valve: The aortic valve appears structurally normal. There is no evidence of aortic valve regurgitation. The peak instantaneous gradient of the aortic valve is 9.1 mmHg. The mean gradient of the aortic valve is 4.0 mmHg. Mitral Valve: The mitral valve is normal in structure. There is trace mitral valve regurgitation. Tricuspid Valve: The tricuspid valve is structurally normal. There is trace tricuspid regurgitation. The Doppler estimated RVSP is within normal limits. Pulmonic Valve: The pulmonic valve is structurally normal. There is no indication of pulmonic valve regurgitation. Pericardium: There is no pericardial effusion noted. Aorta: The aortic root is normal. Systemic Veins: The inferior vena cava appears to be of normal size. CONCLUSIONS: 1. The left ventricular systolic function is normal with a 60-65% estimated ejection fraction. 2. Spectral Doppler shows an impaired relaxation pattern of left ventricular diastolic filling. 3. RVSP within normal limits. 4. No prior study available for comparison. QUANTITATIVE DATA SUMMARY: 2D MEASUREMENTS: Normal Ranges: Ao Root d: 2.60 cm (2.0-3.7cm) LAs: 3.50 cm (2.7-4.0cm) RVIDd: 3.60 cm (0.9-3.6cm) IVSd: 0.90 cm (0.6-1.1cm) LVPWd: 1.00 cm (0.6-1.1cm) LVIDd: 4.60 cm (3.9-5.9cm) LVIDs: 3.60 cm LV Mass Index: 70.1 g/m2 LV % FS 21.7 % LV DIASTOLIC FUNCTION: Normal Ranges: MV Peak E: 0.94 m/s (0.7-1.2 m/s) MV Peak A: 1.01 m/s (0.42-0.7 m/s) E/A Ratio: 0.93 (1.0-2.2) MV lateral e' 0.09 m/s MV medial e' 0.05 m/s E/e' Ratio: 11.00 (<8.0) MITRAL VALVE: Normal Ranges: MV Vmax: 1.07 m/s (<1.3m/s) MV peak P.6 mmHg (<5mmHg) MV mean P.0 mmHg (<48mmHg) MITRAL INSUFFICIENCY: Normal Ranges: MR Vmax: 434.00 cm/s AORTIC VALVE: Normal Ranges: AoV Vmax: 1.51 m/s (<1.7m/s) AoV Peak P.1 mmHg (<20mmHg) AoV Mean P.0 mmHg (1.7-11.5mmHg) LVOT Max Charles: 0.86 m/s (<1.1m/s) AoV VTI: 33.30 cm (18-25cm) LVOT VTI: 22.20 cm LVOT Diameter: 2.10 cm (1.8-2.4cm) AoV Area, VTI: 2.31 cm2 (2.5-5.5cm2) AoV Area,Vmax: 1.98 cm2 (2.5-4.5cm2) AoV Dimensionless Index: 0.67 PULMONIC VALVE: Normal Ranges: PV Max Charles: 0.8 m/s (0.6-0.9m/s) PV Max P.5 mmHg PIEDV: 1.65 m/s PADP: 15.9 mmHg [id number] Luis Castanon MD Electronically signed on 02/08/2020 at 4:38:48 PM Final Procedure Note Conversion, Syngo - 11/21/[address], [address], [place] [address] TRANSTHORACIC ECHOCARDIOGRAM REPORT Patient Name: VILMA GRAHAM Reading Physician: [id number] Luis Croft Study Date: 02/08/2020 Referring Physician: [id number] Luis Croft MRN/PID: [id number] PCP: Conrad Sosa Accession/Order#: [id number] Department Location: [facility] Date of : 1955 Fellow: Gender: F Nurse: Admit Date: Metrology Specialist: [place] Ceballos RDCS,RVT Height: 160.02 cm CC Report to: Weight: 111.59 kg Study Type: Echocardiogram BSA: 2.11 m2 Blood Pressure: 142 /80 mmHg Diagnosis/ICD: R06.02-Shortness of breath Indication: Right CHF, COPD, Diabetes, HTN, Edema, Forme Smoker, JEREMY, CKD-Stage IV, Morbid Obesity-s/p Gastric Bypass Procedure/CPT: Echo Complete w Full Doppler-[id number] Study Detail: The following Echo studies were performed: 2D, M-Mode,Doppler and color flow. PHYSICIAN INTERPRETATION: Left Ventricle: The left ventricular systolic function is normal, with anestimated ejection fraction of 60-65%. The left ventricular cavity size isnormal. Spectral Doppler shows an impaired relaxation pattern of leftventricular diastolic filling. Left Atrium: The left atrium is normal in size. Right Ventricle: The right ventricle is normal in size. There is normalright ventricular global systolic function. Right Atrium: The right atrium is normal in size. Aortic Valve: The aortic valve appears structurally normal. There is noevidence of aortic valve regurgitation. The peak instantaneous gradient ofthe aortic valve is 9.1 mmHg. The mean gradient of the aortic valve is 4.0mmHg. Mitral Valve: The mitral valve is normal in structure. There is tracemitral valve regurgitation. Tricuspid Valve: The tricuspid valve is structurally normal. There istrace tricuspid regurgitation. The Doppler estimated RVSP is within normallimits. Pulmonic Valve: The pulmonic valve is structurally normal. There is noindication of pulmonic valve regurgitation. Pericardium: There is no pericardial effusion noted. Aorta: The aortic root is normal. Systemic Veins: The inferior vena cava appears to be of normal size. CONCLUSIONS: 1. The left ventricular systolic function is normal with a 60-65%estimated ejection fraction. 2. Spectral Doppler shows an impaired relaxation pattern of leftventricular diastolic filling. 3. RVSP within normal limits. 4. No prior study available for comparison. QUANTITATIVE DATA SUMMARY: 2D MEASUREMENTS: Normal Ranges: Ao Root d: 2.60 cm (2.0-3.7cm) LAs: 3.50 cm (2.7-4.0cm) RVIDd: 3.60 cm (0.9-3.6cm) IVSd: 0.90 cm (0.6-1.1cm) LVPWd: 1.00 cm (0.6-1.1cm) LVIDd: 4.60 cm (3.9-5.9cm) LVIDs: 3.60 cm LV Mass Index: 70.1 g/m2 LV % FS 21.7 % LV DIASTOLIC FUNCTION: Normal Ranges: MV Peak E: 0.94 m/s (0.7-1.2 m/s) MV Peak A: 1.01 m/s (0.42-0.7 m/s) E/A Ratio: 0.93 (1.0-2.2) MV lateral e' 0.09 m/s MV medial e' 0.05 m/s E/e' Ratio: 11.00 (<8.0) MITRAL VALVE: Normal Ranges: MV Vmax: 1.07 m/s (<1.3m/s) MV peak P.6 mmHg (<5mmHg) MV mean P.0 mmHg (<48mmHg) MITRAL INSUFFICIENCY: Normal Ranges: MR Vmax: 434.00 cm/s AORTIC VALVE: Normal Ranges: AoV Vmax: 1.51 m/s (<1.7m/s) AoV Peak P.1 mmHg (<20mmHg) AoV Mean P.0 mmHg (1.7-11.5mmHg) LVOT Max Charles: 0.86 m/s (<1.1m/s) AoV VTI: 33.30 cm (18-25cm) LVOT VTI: 22.20 cm LVOT Diameter: 2.10 cm (1.8-2.4cm) AoV Area, VTI: 2.31 cm2 (2.5-5.5cm2) AoV Area,Vmax: 1.98 cm2 (2.5-4.5cm2) AoV Dimensionless Index: 0.67 PULMONIC VALVE: Normal Ranges: PV Max Charles: 0.8 m/s (0.6-0.9m/s) PV Max P.5 mmHg PIEDV: 1.65 m/s PADP: 15.9 mmHg [id number] Luis Castanon MD Electronically signed on 02/08/2020 at 4:38:48 PM Final us Syngo Conversion CV ECHO PROCEDURES Final Result [facility] [place] [id number], [place] from Last 3 Months or Most Recently Relevant to Health Maintenance Insurance MEDICAID [facility] MEDICARE ASSURE MEDICAID [employer] MEDICARE ASSURE Care Teams Patient Accounting Representative Relationship Specialty Start Date End Date Conrad Sosa DO [address] [place] [phone] PCP - General 09/25/22
--- OUTSIDE RECORDS SUMMARY | 2025-04-11 11:53 | XMS_ITS | Clinical Summary ---
Author Organization [facility] Address [address] [place] [address] Care Team Providers Care Wire Rope Fabrication Supervisor Name Role Phone Unavailable Primary Care Provider Unavailabl e Social History Tobacco Use Types Packs/Day Years Used Date Smoking Tobacco: Never Assessed Comments Unknown Sex and Gender Information Value Date Recorded Sex Assigned at Not on file Legal Sex Female 8:40 PM EDT Gender Identity Not on file Sexual Orientation Not on file Plan of Treatment Upcoming Encounters Date Type Department Care Team (Late st Contact Info) Description 04/28/2025 12:00 PM EDT Office Visit [facility] [address] [place] [address] Nick Adam MD [address] [place] [address] Health Maintenance Due Date Last Done Comments DEXA SCAN DISCUSSION 1955 HEPATITIS C VIRUS SCREENING 1955 TETANUS 1955 TDAP (ADULT) 1974 CERVICAL CANCER SCREENING DISCUSSION 1976 LIPID SCREENING 1995 MAMMOGRAM SCREENING DISCUSSION 1995 COLORECTAL CANCER SCREENING DISCUSSION 2000 PNEUMOCOCCAL VACCINE SERIES (1 of 1 - PCV) 2005 ZOSTER (SHINGLES) VACCINE (1 of 2) 2005 COVID-19 VACCINE ( - 2023-2 5 season) 2024 INFLUENZA VACCINE (Season Ended) 2025 RSV VACCINE (1 - 1-dose 75+ series) 2030 HEP B VACCINE Aged Out No longer elig ible based on patient's age to complete this topic Insurance MEDICARE [employer] HMO MEDICAID
--- OUTSIDE RECORDS SUMMARY | 2025-04-11 11:53 | XMS_ITS | Clinical Summary ---
Author Organization [facility] Address [address] [place], [place] [id number] Care Team Providers Care Flat Surfacer Jewel Name Role Phone Conrad Sosa Primary Care Provider [phone] Italo Ann MD Unavailable [phone] Allergies Active Allergy Reactions Criticality Noted Date Comments Latex Rash 06/30/2017 Penicillin Rash 06/30/2017 Sulfa (Sulfonamide Antibiotics) Rash 06/19 Medications hydrOXYzine HCl (ATARAX) 10 mg tablet Take by mouth three times daily as needed. Active celecoxib (CELEBREX) 200 mg capsule Take by mouth twice daily. Active temazepam (RESTORIL) 15 mg cap Take by mouth at bedtime as needed. Active rOPINIRole (REQUIP) 0.5 mg tablet Take 0.5 mg by mouth daily at bedtime. Active CALCIUM POLYCARBOPHIL (FIBERCON ORAL) Take by mouth. Active tiZANidine HCl 4 mg capsule Take by mouth daily at bedtime. Active pantoprazole (PROTONIX) 40 mg injection Inject intravenously DAILY (6 AM). Active lisinopril (ZESTRIL, PRINIVIL) 40 mg tabletIndications :Chronic combined systolic and diastolic congestive heart failure (HCC),Essential hypertension Take 1 tablet by mouth once daily. 90 tablet 3 04/08/20 18 Active pantoprazole (PROTONIX) 40 mg grps Take 40 mg by mouth twice daily before meals (0600/1600). Active cetirizine (ZYRTEC) 10 mg tablet Take 10 mg by mouth once daily. Active oxyCODONE-acetami nophen (PERCOCET) 5-325 mg tablet Take 1 tablet by mouth as needed. Active fluticasone (FLONASE) 50 mcg/actuation nasal spray Use 2 Sprays in each nostril twice daily at 6AM and 9PM. Active albuterol HFA (PROVENTIL HFA, VENTOLIN HFA) 90 mcg/actuation inhaler Inhale 2 Puffs as instructed as needed for Wheezing/Shortnes s of Breath. Active budesonide-formot kathrin (SYMBICORT) 160-4.5 mcg/actuation inhaler Inhale 2 Puffs as instructed twice daily. Active alendronate (FOSAMAX) 70 mg tablet 08/16/20 Active bumetanide (BUMEX) 1 mg tablet Take 1 tablet by mouth once daily. 30 tablet 11 08/27/20 Active Active Problems Problem Noted Date Diagnosed Date Dyspnea on exertion 05/27/2018 Localized edema 05/27/2018 Cramps of left lower extremity 04/08/2018 Chronic combined systolic an d diastolic congestive heart failure 07/06/2017 Pulmonary HTN 07/06/2017 Essential hypertension 07/06/2017 JEREMY (obstructive sleep apnea) 07/06/2017 Gastroesophageal reflux disease 07/06/2017 Fibromyalgia 07/06/2017 Restrictive lung disease 07/06/2017 Obesity, Class III, BMI >= 40 (morbid obesity) E 66.01 06/30/2017 Social History Tobacco Use Types Packs/Day Years Used Date Smoking Tobacco: Passive Smo ke Exposure - Never Smoker Cigarettes Smokeless Tobacco: Never Alcohol Use Standard Drinks/Week Comments No 0 (1 standard drink = 0.6 oz pur e alcohol) Area Deprivation Index Answer Date Weston rded National Score (1-100), lower number is lower ri sk Not on file 09/25/2020 State Score (1-10), lower number is lower risk N ot on file 09/25/2020 Data from: https://www.neighborhoodatlas.medicine.[facility].edu/. Last address used for calculation Not on file 09/25/2020 Comments No Sex and Gender Information Value Date Recorded Sex Assigned at Not on file Legal Sex Female 9:52 AM EST Gender Identity Not on file Sexual Orientation Not on file Last Filed Vital Signs Vital Sign Reading Time Taken Comments Blood Pressure 157/68 08/27/2018 12:31 PM EST Pulse 71 08/27/2018 12:31 PM EST Temperature - - Respiratory Rate 18 08/27/2018 12:31 PM EST Oxygen Saturation 100% 08/27/2018 12:31 PM EST Inhaled Oxygen Concentration - - Weight 122 kg (269 lb) 08/27/2018 12:31 PM EST Height 160 cm (5' 3 ) 08/27/2018 12:31 PM EST Body Mass Index 47.65 08/27/2018 12:31 PM EST Plan of Treatment Health Maintenance Due Date Last Done Comments Anxiety Screening 1973 Depression Screening 1973 Hepatitis C Screening 1973 DTaP,Tdap,Td Vaccine (1 - Tdap) [address] Colonography 2000 Cologuard (FIT-DNA) 2000 Colonoscopy 2000 Colorectal Cancer Screening 2000 Diabetes Screening 2000 Fecal Occult Blood 2000 Lipid Screening 2000 Sigmoidoscopy 2000 Shingrix Vaccine (1 of 2) 2005 Bone Density Screening 2020 Pneumococcal Vaccine: 50+ (3 of 3 - PCV20 or PCV21) 07/19/2023 07/19/2018, 12/18/2011 Covid-19 Vaccine ( - season) 2024 Advance Directive Discussion 10/19/2024 Influenza Vaccine (Season Ended) 2025 07/19/20 18, 08/20/2017 RSV Vaccine (1 - 1-dose 75+ series) 2030 Insurance MEDICARE MEDICAID [place] Care Teams Flat Surfacer Jewel Relationship Specialty Start Date End Date Conard Sosa DO PCP - General Family Medicine 06/25/17 Italo Ann MD [address] [address] Primary Staff Physician Cardiology 01/04/19
--- NOTE | 2025-04-11 12:21 | XR_ITS ---
The [address] [address] Patient Name: CASTILLO GRAHAM MRN: [id number] date: 1955 Sex: F Assigned Patient Location: LAB Current Patient Location: LAB Accession/Order Number: [id number] Exam Date: 04/11/2025 13:00 Report Date: 04/11/2025 13:01 At the request of: PETER ZHOU DO Procedure: XR abdomen 1V KUB: CLINICAL INFORMATION: Epigastric pain COMPARISON: None FINDINGS: No bowel obstruction or free air. Postsurgical findings are seen involving left upper quadrant. Osseous structures demonstrate degenerative change. XR/XR abdomen 1V IMPRESSION: No acute process. Impression dictated by: Chet Dumont Jr.ODulce 04/11/2025 1:01 PM Dictation Location: [place] [address] Electronically authenticated by: [id number] Y Date: 04/11/2025 13:01
[2025-04-11 12:29] LABS: Basophils Absolute Auto 0.1 10^3/uL (0.0-0.1); Eosinophils Absolute Auto 0.3 10^3/uL (0.0-0.7); Hematocrit 39.6 % (36.0-48.0); Hemoglobin 12.7 g/dL (12.0-16.0); Immature Granulocytes Abs Auto 0.02 10^3/uL (0.00-0.03); Immature Granulocytes Pct Auto 0.3 % (0.0-0.5); Lymphocytes Absolute Auto 1.5 10^3/uL (1.2-3.8); Lymphocytes Percent Auto 22.2 % (20.5-60.0); Mean Corpuscular HGB Conc 32.1 g/dL (29.9-35.2); Mean Corpuscular Hemoglobin 28.1 pg (26.7-34.0); Mean Corpuscular Volume 87.6 fL (81.0-99.0); Mean Platelet Volume 10.2 fL (9.5-13.5); Monocytes Absolute Auto 0.7 10^3/uL (0.3-0.8); Monocytes Percent Auto 9.8 % (1.7-12.0); Neutrophils Absolute Auto 4.2 10^3/uL (1.4-6.5); Neutrophils Percent Auto 62.7 % (43.0-75.0); Platelet Count 228 10^3/uL (150-450); Red Blood Count 4.52 10^6/uL (4.20-5.40); Red Cell Distribution Width 13.9 % (11.0-15.0); White Blood Count 6.8 10^3/uL (4.0-11.0)
[2025-04-11 13:04] LABS: Alanine Aminotransferase 28 U/L (14-59); Albumin Globulin Ratio 0.9; Albumin Level 3.4 g/dL (3.4-5.0); Alkaline Phosphatase 85 U/L (46-116); Amylase 66 U/L (25-115); Anion Gap 12.1; Aspartate Amino Transferase 19 U/L (15-37); BUN Creatinine Ratio 24.5; Bilirubin Total 0.4 mg/dL (0.2-1.0); Calcium 8.7 mg/dL (8.5-10.1); Carbon Dioxide 28.4 mmol/L (21.0-32.0); Chloride 106 mmol/L (98-107); Estimated GFR (African America 44 (>=60 mL/min/1.73m^2); Estimated GFR (Non-African Ame 36 (>=60 mL/min/1.73m^2); Globulin 3.8 g/dL; Glucose 110 mg/dL (74-106); Potassium 3.5 mmol/L (3.5-5.1); Sodium 143 mmol/L (136-145); Total Protein 7.2 g/dL (6.4-8.2)
[2025-04-11 14:23] LABS: Bilirubin Urine NEGATIVE (NEGATIVE); Blood Urine NEGATIVE (NEGATIVE); Clarity Urine CLEAR (CLEAR); Color Urine LT. YELLOW (YELLOW); Glucose Urine UA NEGATIVE (NEGATIVE); Ketones Urine NEGATIVE (NEGATIVE); Leukocyte Esterase Urine SMALL (NEGATIVE); Nitrite Urine NEGATIVE (NEGATIVE); Protein Urine NEGATIVE (NEG/TRACE); Specific Gravity Urine 1.015 (1.005-1.025); Urobilinogen Urine 0.2 EU/dL (0.2-1.0); pH Urine 5.5 (5.0-9.0)
[2025-04-11 14:28] LABS: Urine Microscopic Indicated YES
[2025-04-11 15:10] LABS: Bacteria Urine MODERATE #/HPF (NONE SEEN); Cast Seen? NONE SEEN #/LPF (NONE SEEN); Crystals Seen? None Seen #/HPF (None Seen); Mucus Urine NONE SEEN (NONE SEEN); RBC Urine NONE SEEN #/HPF (0-2); Squamous Epithelial Cell Urine MODERATE #/LPF (NONE/RARE)
[2025-04-11 15:11] LABS: Urine Culture Indicated YES-FRMC
== END 2025-04-11 11:45 | disposition home or self-care (01) ==
LOC: LAB 11:49
PROVIDERS: PCP Family Medicine; Visit Provider Family Medicine
DX: R10.13 Epigastric pain (principal)
CPT/HCPCS: 36415; 74018; 80053; 81001; 82150; 83690; 85025; 87086

== ENCOUNTER 2025-04-25 10:50 | Outpatient (OUT) | payer MEDICARE, MEDICAID, SELFPAY ==
--- OUTSIDE RECORDS SUMMARY | 2025-04-11 12:06 | XMS_ITS ---
Author Name Auto Generated Organization OHIP Care Team Providers Care Securities Broker Name Role Phone LEAH BARRERA Attending Unavailable MARSHALL ROSADO Attending Unavailable LEAH BARRERA Attending Unavailable ESTRELLA ANGELO Admitting Unavailable ESTRELLA ANGELO Attending Unavailable KIMBERLY ELIAS Consulting Unavailable CAM LARA Consulting Unavailable ESTRELLA ANGELO Referring Unavailable Conrad Zhou Attending Unavailable Conrad Zhou Admitting Unavailable Glen Bejarano Attending Unavaila ble SarminGlen jackson Referring Unavaila ble SarminGlen jackson Admitting Unavaila CONRAD Jon Primary Care Unavailable PROBLEMS DATE TYPE CONDITION / CODE ATTENDING STATUS [facility] 01/05/2025 Unknown Postprocedural hypotension / I95.81(ICD-10) ESTRELLA ANGELO [facility] 11/14/2024 Admitting diagnosis Effusion, left knee / M25.462(ICD-10) NA [facility] PROCEDURES No Procedure Records Found RESULTS URINE CULTURE Observed: 04/11/2025 12:06 PM Status: F Source: [facility] <9,000 colonies/ml mixed bacterial skin contaminants 2 Days PERFORMED BY: [facility] [address] [place] [address] PATHOLOGIST SEARCH ENGINE OPTIMIZATION STRATEGIST GENE S FREDDIE M.D. Performed By: #### CUU #### [facility] [address] [id number] [facility] BASIC METAB W/RFX MG Collected: 3:30 PM Status: F Source: [facility] TYPE CODE TESTS RESULT OUT OF RANGE REFERENCE UNITS LAB NA(LOINC) NA (Sodium) 141 136-145 mmol/L LAB K(LOINC) K (Potassium) 4.1 3.7-5.3 mmol/L LAB CL(LOINC) Chloride 109 High 98-107 mmol/L LAB HCO(LOINC) CO2 23 20-31 mmol/L LAB GAP(LOINC) Anion Gap 9 9-16 mmol/L LAB GLU(LOINC) Glucose 166 High 74-99 mg/dL LAB BUN(LOINC) BUN (Urea N) 19 8-23 mg/dL LAB CRE(LOINC) Creatinine 1.0 High 0.50-0.90 mg/dL LAB EGFR(LOINC) eGFR 60 Low >60 mL/min/1. 73m2 Result Comment: These results are not intended for [...] following therapy that affects renal tubular secretion. LAB BUNCRE(LOINC) BUN/CRE Ratio 19 9-20 LAB CA(LOINC) Calcium 8.7 8.6-10.4 mg/dL Performed By: #### BMPX, CDP #### [facility] [address] [place] [address] Capsule Filling Machine Operator: Reagan Lea MD CBC WITH DIFF Collected: 01/05/2025 3:30 PM Status: F Source: [facility] TYPE CODE TESTS RESULT OUT OF RANGE REFERENCE UNITS LAB WBC(LOINC) WBC Count 4.4 3.5-11.3 k/uL LAB RBC(LOINC) RBC Count 3.94 Low 3.95-5.11 m/uL LAB HGB(LOINC) Hemoglobin 11.2 Low 11.9-15.1 g/dL LAB HCT(LOINC) Hematocrit 35.2 Low 36.3-47.1 % LAB MCV(LOINC) MCV 89.3 82.6-102.9 fL LAB MCH(LOINC) MCH 28.4 25.2-33.5 pg LAB MCHC(LOINC) MCHC 31.8 28.4-34.8 g/dL LAB RDW(LOINC) RDW 14.0 11.8-14.4 % LAB PLT(LOINC) Platelet Count 171 138-453 k/uL LAB MPVX(LOINC) MPV 10.3 8.1-13.5 fL LAB NRBCS(LOINC) NRBC Automated 0.0 0.0 per 100 WBC LAB SEG(LOINC) Neutrophil (Seg) 88 High 36-65 % LAB LYM(LOINC) Lymphocyte 10 Low 24-43 % LAB MON(LOINC) Monocyte 1 Low 3-12 % LAB EO(LOINC) Eosinophil 1 1-4 % LAB IGRAN(LOINC) Immature Granulocyte 0 0 % LAB BASO(LOINC) Basophil 0 0-2 % LAB ASEG(LOINC) Abs.Neutrophil (Seg) 3.88 1.50-8.10 k/uL LAB ALYM(LOINC) Abs. Lymph 0.44 Low 1.10-3.70 k/uL LAB AMONO(LOINC) Abs. Monocyte 0.04 Low 0.10-1.20 k/u L LAB AEO(LOINC) Abs. Eosinophil 0.04 0.00-0.44 k/u L LAB AIGRAN(LOINC) Abs.Imm.Granulo cyte 0.00 0.00-0.30 k/uL LAB ABASO(LOINC) Abs. Basophil 0.00 0.0-0.2 k/uL LAB MORPH(LOINC) Morphology Normal Performed By: #### BMPX, CDP #### [facility] [address] [place] [address] Capsule Filling Machine Operator: Reagan Lea MD UA W/REFLEX CULTURE Collected: 01/05/2025 2:[address] atus: F Source: [facility] TYPE CODE TESTS RESULT OUT OF RANGE REFERENCE UNITS LAB UCO(LOINC) Color Yellow YEL LAB UTU(LOINC) Clarity, Urine Clear CLEAR LAB UGL(LOINC) Glucose,Semi-q nt,Ur NEGATIVE NEG mg/dL LAB UBI(LOINC) Bilirubin, SemiQt,Ur NEGATIVE NEG LAB UKE(LOINC) Ketones, Urine NEGATIVE NEG mg/dL LAB USG(LOINC) Spec. [place],Ur <1.005 Low 1.010-1.020 LAB UHB(LOINC) Blood, Urine NEGATIVE NEG LAB UPH(LOINC) PH,Ur 7.5 5.0-9.0 LAB UPR(LOINC) Protein, Semi-qnt,Ur NEGATIVE NEG mg/dL LAB UUR(LOINC) Urobilinogen,U r Normal 0.0-1.0 EU/dL LAB UNI(LOINC) Nitrite,Ur NEGATIVE NEG LAB ULE(LOINC) Leukocyte Esterase NEGATIVE NEG Performed By: #### UAX, [facility] AO #### [facility] [address] [place], [place] [id number] Capsule Filling Machine Operator: Reagan Lea MD URINALYSIS,MICRO Collected: 2:30 PM Status: F Source: [facility] TYPE CODE TESTS RESULT OUT OF RANGE REFERENCE UNITS LAB UWBC([facility]) Urine WBC's None 0-5 /HPF LAB URBC(INC) Urine RBC's None 0-2 /HPF LAB EPITH(INC) Epithelial cells 0 TO 2 0-25 /HPF Performed By: #### UAX, [facility] AO #### [facility] [address] [place] [address] Capsule Filling Machine Operator: Reagan Lea MD XR CHEST (2 VW) Observed: 01/05/2025 2:04 PM Status: F Source: [facility] EXAMINATION: TWO XRAY VIEWS OF THE CHEST 01/05/2025 1:51 pm COMPARISON: None. HISTORY: ORDERING SYSTEM PROVIDED HISTORY: hypotension TECHNOLOGIST PROVIDED HISTORY: hypotension FINDINGS: The lungs are without acute focal process. There is no effusion or pneumothorax. The cardiomediastinal silhouette is without acute process. The osseous structures are without acute process. IMPRESSION: No acute process. Interpreted by: Kyle Westfall MD Signed by: Kyle Westfall MD 01/05/25 Final result FLUORO FOR SURGICAL PROCEDURES Observed: 01/05/2025 11:55 AM Status: F Source: [facility] Radiology exam is complete. No Radiologist dictation. Please follow up with ordering provider. Final result GLUCOSE, WHOLE BLOOD Collected: 01/05/2025 9:29 AM S tatus: F Source: [facility] TYPE CODE TESTS RESULT OUT OF RANGE REFERENCE UNITS LAB FSGLU(LOINC) Glucose, Whole Blood 136 High 74-100 mg/dL CULT,AEROBE/ANAEROBE Observed: 10:22 AM Status: F Source: [facility] Specimen Description .JOINT FLUID .KNEE LEFT 6.8mL Special Requests .JOINT FLUID .KNEE LEFT Direct Exam FEW NEUTROPHILS NO ORGANISMS SEEN Culture NO GROWTH 5 DAYS Report Status FINAL 11/19/2024 Performed By: #### AANC #### [address] [address] Capsule Filling Machine Operator: Rocco Salas MD [facility] [address] [place] [address] Capsule Filling Machine Operator: Reagan Lea MD FLUID CELL COUNT AND DIFF Collected: 10:22 AM Status: F Source: [facility] TYPE CODE TESTS RESULT OUT OF RANGE REFERENCE UNITS LAB BFCOL(LOINC) Color Yellow LAB BFAPPR(LOINC) Appearance SLIGHTLY CLOUDY LAB BFWBC(LOINC) WBC 156 cells/uL LAB BFRBC(LOINC) RBC 8000 cells/uL LAB SPECBF(LOINC) Type of Specimen .JOINT FLUID LAB BFSEG(LOINC) Neutrophils 28 High 0 % LAB BFLYM(LOINC) Lymphocyte 72 High 0 % LAB BFMON(LOINC) [place]/Macrophage 0 % LAB BFEOS(LOINC) Eosinophils 0 % LAB BFBAS(LOINC) Basophils 0 % LAB BFOTH(LOINC) Other Cells 0 % LAB TCELL(LOINC) Total Cells Counted 50 Performed By: #### FLCRYS ## [address] [id number] Capsule Filling Machine Operator: Rocco Salas MD [facility] [address] [place] [address] [place] [address] Capsule Filling Machine Operator: Reagan Lea MD#### FLDCT #### [address] [place] [address] Capsule Filling Machine Operator: Reagan Lea MD CRYSTALS, FLUIDS Collected: 10:22 AM Status: F Source: [facility] TYPE CODE TESTS RESULT OUT OF RANGE REFERENCE UNITS LAB SPECFC([facility]) Type of Specimen .JOINT FLUID LAB CRYSFL([facility]) Crystals,Fluid NEGATIVE NEG Result Comment: NO CRYSTALS SEEN LAB HPA([facility]) Pathologist Review: ELECTRONICALLY SIGNED. DORSI ALDRICH M.D. Performed By: #### FLCRYS ## ## [facility] [address] [place] [address] Capsule Filling Machine Operator: Rocco Salas MD [address] [place] [address] Capsule Filling Machine Operator: Reagan Lea MD#### FLDCT #### [address] [place] [address] Capsule Filling Machine Operator: Reagan Lea MD REMINDERS Observed: 06/06/2024 10:26 AM Status: F Source: [facility] Reminders From: Lisa Cunningham I To: [facility] - Reminders/Recalls; Sent: 06/06/2024 10:26:14 EDT Show up: 03/19/2034 10:26:00 EDT Subject: Colonoscopy recall Reminder/Recall [address] Bejarano 06/01/2034 [place] [facility] [place] Observed: 06/06/2024 10:26 AM Status: F Source: [facility] [place] [facility] [place] 06, 2024 RENUKA GRAHAM [address] [place] [id number] : 1955 Below is a summary of the results of your recent colonoscopy. Your results have been sent to your primary care provider along with recommendations on when the procedure should be repeated. COLONOSCOPY - normal Type of polyp no polyps identified Based on your results we are recommending you repeat the procedure in 10 years Please contact the office with any further questions or concerns or if you wish to make an appointment. [facility] [phone] PROGRESS NOTE-PHYSICIAN Observed: 2023 1:29 PM Status: F Source: [facility] Progress Note-Physician Patient: RENUKA GRAHAM Age: 68 years Sex: Female : 1955 Associated Diagnoses: None Author: Nick Loera DO Postoperative Information Postoperative disposition: Postoperative disposition: To PACU. Anesthetic utilized: General. Health Status Allergies: Allergic Reactions (Selected) Severity Not Documented Aspirin- Unknown. Latex- Unknown. Penicillins- Unknown. Sulfa drugs- Unknown. Tape- Itching. Current medications: (Selected) Inpatient Medications Ordered Lactated Ringers IV Trang 1000 mL 1,000 mL: 1,000 mL, IV, 100 mL/hr, Routine, Start date 06/01/24 11:27:00 EDT, 10 hour(s), Total volume (mL): 1,000, 96 kg, 2.07, m2 Sodium Chloride 0.9% IV Trang 1000 mL 1,000 mL: 1,000 mL, IV, 20 mL/hr, Routine, Start date 06/01/24 7:23:00 EDT, 50 hour(s), Total volume (mL): 1,000 Prescriptions Prescribed Carafate 1 gram Tab: 1 gram = 1 tab(s), Oral, QID, # 120 tab(s), Refills(s) 0, Pharmacy: [facility] Documented Medications Documented Fiber Tabs: 1 tab, Oral, Daily, Refills(s) 0, Prophylaxis Symbicort 160/4.5 inhalation aerosol with adapter: Refill(s) 0, 10 gm, 0 Refill(s), INHALE 2 PUFFS TWICE A DAY Vitamin D3: Oral, BID, Refills(s) 0, Prophylaxis Vitamin D3: Oral, Refills(s) 0, Prophylaxis acetaminophen-oxycodone 325 mg-5 mg oral tablet: 1 tab(s), Oral, q6hr as needed for pain, Refill(s) 0 albuterol HFA 90 mcg/inh MDI: Refill(s) 0, Respiratory (Inhalation), 0 Refill(s) alendronate 5 mg oral tablet: 1, Oral, Daily, osteoporosis, Refills(s) 0, Other (see comment) allopurinol: Oral, Daily, Refills(s) 0, Gout pain bumetanide 1 mg Tab: 180 EA, 0 Refill(s), TAKE ONE TABLET BY MOUTH TWICE A DAY, Refills(s) 0 cyclobenzaprine: 10 Unknown, Oral, Refills(s) 0 duloxetine 30 mg oral delayed release capsule: 1 Unknown, 0 Refill(s), Refills(s) 0 ferrous sulfate: 2,000 mg, Oral, BID, Refills(s) 0, Prophylaxis fluticasone 0.05 mg/inh Nasal [place]: 2 spray(s), Nasal, Daily, Refill(s) 0, Allergy symptoms gabapentin 300 mg Cap: 300 mg = 1 cap(s), Oral, TID, Oral, Refills(s) 0, Neuropathy hydrOXYzine: 10 mg, Oral, QID, PRN as needed for anxiety, Refills(s) 0 magnesium gluconate 500 mg oral tablet: 500 mg = 1 tab(s), Oral, Daily, Refills(s) 0 midodrine 2.5 mg oral tablet: BID, 2.5 Unknown, oral, 0 Refill(s), Take 1 tablet (2.5 mg total) by mouth 2 (two) times a day., Refills(s) 0 ondansetron 4 mg Tab: Oral, Refills(s) 0, Nausea pantoprazole: 40 mg, Oral, BID, Refills(s) 0, Control of stomach acid phentermine 37.5 mg Tab: Refills(s) 0 temazepam: 30 mg, Oral, Once a day (at bedtime), Refills(s) 0, Sleep tizanidine: 4 mg, Oral, BID, PRN Muscle pain, Refills(s) 0 topiramate 25 mg Tab: 180 EA, 0 Refill(s), TAKE TWO TABLETS BY MOUTH ONCE DAILY, Refills(s) 0, Home Medications (24) Active acetaminophen-oxycodone 325 mg-5 mg oral tablet 1 tab(s), PRN, Oral, q6hr albuterol HFA 90 mcg/inh MDI alendronate 5 mg oral tablet 1, Oral, Daily allopurinol , Oral, Daily bumetanide 1 mg Tab Carafate 1 gram Tab 1 gram = 1 tab(s), Oral, QID cyclobenzaprine duloxetine 30 mg oral delayed release capsule ferrous sulfate 2,000 mg, Oral, BID Fiber Tabs 1 tab, Oral, Daily fluticasone 0.05 mg/inh Nasal [place] 2 spray(s), Nasal, Daily gabapentin 300 mg Cap 300 mg = 1 cap(s), Oral, TID hydrOXYzine 10 mg, PRN, Oral, QID magnesium gluconate 500 mg oral tablet 500 mg = 1 tab(s), Oral, Daily midodrine 2.5 mg oral tablet , BID ondansetron 4 mg Tab pantoprazole 40 mg, Oral, BID phentermine 37.5 mg Tab Symbicort 160/4.5 inhalation aerosol with adapter temazepam 30 mg, Oral, Once a day (at bedtime) tizanidine 4 mg, PRN, Oral, BID topiramate 25 mg Tab Vitamin D3 , Oral, BID Vitamin D3 Problem list: All Problems CHF (congestive heart failure) / SNOMED CT 31616741 / Confirmed COPD (chronic obstructive pulmonary disease) / SNOMED CT 26472150 / Confirmed Hypertension / SNOMED CT 2009027466 / Confirmed Kidney failure / SNOMED CT 45446970 / Confirmed Physical Examination Vital Signs 06/01/2024 13:05 EDT Heart Rate Monitored 62 bpm bpm Respiratory Rate 10 br/min br/min Systolic Blood Pressure 153 mmHg mmHg Diastolic Blood Pressure 95 mmHg mmHg SpO2 99 % % 06/01/2024 13:00 EDT Heart Rate Monitored 64 bpm bpm Respiratory Rate 10 br/min br/min Systolic Blood Pressure 133 mmHg mmHg Diastolic Blood Pressure 72 mmHg mmHg SpO2 98 % % 06/01/2024 12:55 EDT Heart Rate Monitored 64 bpm bpm Respiratory Rate 10 br/min br/min Systolic Blood Pressure 136 mmHg mmHg Diastolic Blood Pressure 118 mmHg mmHg SpO2 98 % % 06/01/2024 12:50 EDT Heart Rate Monitored 63 bpm bpm Respiratory Rate 10 br/min br/min SpO2 99 % % 06/01/2024 12:45 EDT Heart Rate Monitored 68 bpm bpm Respiratory Rate 10 br/min br/min Systolic Blood Pressure 153 mmHg mmHg Diastolic Blood Pressure 88 mmHg mmHg SpO2 99 % % 06/01/2024 12:40 EDT Heart Rate Monitored 70 bpm bpm Respiratory Rate 10 br/min br/min Systolic Blood Pressure 150 mmHg mmHg Diastolic Blood Pressure 84 mmHg mmHg SpO2 100 % % 06/01/2024 12:35 EDT Heart Rate Monitored 69 bpm bpm Respiratory Rate 10 br/min br/min Systolic Blood Pressure 148 mmHg mmHg Diastolic Blood Pressure 104 mmHg mmHg SpO2 100 % % 06/01/2024 12:30 EDT Heart Rate Monitored 71 bpm bpm Respiratory Rate 10 br/min br/min Systolic Blood Pressure 163 mmHg mmHg Diastolic Blood Pressure 76 mmHg mmHg SpO2 100 % % 06/01/2024 12:27 EDT Systolic Blood Pressure 152 mmHg mmHg Diastolic Blood Pressure 80 mmHg mmHg 06/01/2024 12:25 EDT Respiratory Rate 10 br/min br/min 06/01/2024 11:23 EDT Systolic Blood Pressure 108 mmHg Diastolic Blood Pressure 91 mmHg HI Blood Pressure Location Left arm 06/01/2024 11:11 EDT Temperature Temporal Artery 36.3 DegC Heart Rate Monitored 73 bpm Respiratory Rate Monitored 19 br/min Systolic Blood Pressure 125 mmHg Diastolic Blood Pressure 51 mmHg LOW Blood Pressure Location Left arm SpO2 98 % Pain Assessment Assessment Anesthetic outcome No anesthetic complications noted. Adequate pain relief. Review / Management Condition Plan Transfer/Discharge: Patient exhibiting no signs of N/V. Hydration status is adequate. Result Comment: Electronical ly Signed By: Nick Loera DO\.br\Date and Time Signed: 06/01/24 13:29 EDT DISCHARGE INSTRUCTIONS Observed: 024 1:14 PM Status: F Source: [facility] Discharge Instructions ANDIPAUL ALYCHAKA Dunn :1955 Visit Date:06/01/2024 Inpatient Discharge Instructions Your Care Team Admitting Physician - Glen Bejarano MD Referring Physician - Glen Bejarano MD Reason for Your Visit DIVERTICULAR DISEASE, DYSPHAGIA, HISTORY OF GASTRIC BYPASS, OBESITY, CONGESTIVE HEART FAILURE Your Diagnosis Colon polyps Dysphagia Tests Performed Pathology Tissue Exam -- Results Pending -- Please visit your patient portal for your results or contact your primary care physician. This Is Your Medications List acetaminophen-oxycodone (acetaminophen-oxycodone 325 mg-5 mg oral tablet) albuterol (albuterol HFA 90 mcg/inh MDI) alendronate (alendronate 5 mg oral tablet) allopurinol budesonide-formoterol (Symbicort 160/4.5 inhalation aerosol with adapter) bumetanide (bumetanide 1 mg Tab) cholecalciferol (Vitamin D3) cholecalciferol (Vitamin D3) cyclobenzaprine duloxetine (duloxetine 30 mg oral delayed release capsule) ferrous sulfate fluticasone nasal (fluticasone 0.05 mg/inh Nasal [place]) gabapentin (gabapentin 300 mg Cap) hydrOXYzine magnesium gluconate (magnesium gluconate 500 mg oral tablet) midodrine (midodrine 2.5 mg oral tablet) ondansetron (ondansetron 4 mg Tab) pantoprazole phentermine (phentermine 37.5 mg Tab) polycarbophil (Fiber Tabs) sucralfate (Carafate 1 gram Tab) temazepam tizanidine topiramate (topiramate 25 mg Tab) Procedure History Colonoscopy (06/01/2024), Esophagogastroduodenoscopy (06/01/2024), EGD (esophagogastroduodenoscopic) electrohydraulic lithotripsy of bezoar in stomach (06/15/2019), Colonoscopy (08/02/2018), Appendicectomy, Both knees, Caesarean section, Gastric bypass, Tendonitis of left ankle, Tonsillectomy. What to do next Instructions From Your Doctor Event Name Event Result Discharge Activity Resume normal activities in 24 hours Discharge Restrictions No driving for 24 hrs Discharge Diet(s) Regular Call Your Doctor For Persistent or heavy bleeding Discharge Instructions Discharge Instructions New Follow Up Appointments after Discharge Follow Up with Darci BRYANT, KLAUS Parsons, [facility] When: Comments: Call for any problems. Office to call for follow up appointment. Where: [address] [place], [place] [address], [address] [phone] Medications What How Much When Instructions Next Dose Changed budesonide-formoterol (Symbicort 160/ 4.5 inhalation aerosol with adapter) 10 gm, 0 Refill(s), INHALE 2 PUFFS TWICE A DAY Changed gabapentin (gabapentin 300 mg Cap) 1 Capsules By Mouth 3 times a day Oral Unchanged acetaminophen-oxycodone (acetaminophen-oxycodone 325 mg-5 mg oral tablet) 1 Tablets By Mouth Every 6 hours as needed for as needed for pain Unchanged albuterol (albuterol HFA 90 mcg/ inh MDI) Respiratory (Inhalation), 0 Refill(s) Unchanged alendronate (alendronate 5 mg oral tablet) 1 By Mouth Every day osteoporosis Unchanged allopurinol By Mouth Every day Unchanged bumetanide (bumetanide 1 mg Tab) 180 EA, 0 Refill(s), TAKE ONE TABLET BY MOUTH TWICE A DAY Unchanged cholecalciferol (Vitamin D3) Oral Unchanged cholecalciferol (Vitamin D3) By Mouth 2 times a day Unchanged cyclobenzaprine 10 Unknown, Oral Unchanged duloxetine (duloxetine 30 mg oral delayed release capsule) 1 Unknown, 0 Refill(s) Unchanged ferrous sulfate 2,000 Milligram By Mouth 2 times a day Unchanged fluticasone nasal (fluticasone 0.05 mg/ inh Nasal [place]) 2 Sprays Nasal Inhalation Every day Unchanged hydrOXYzine 10 Milligram By Mouth 4 times a day as needed for as needed for anxiety Unchanged magnesium gluconate (magnesium gluconate 500 mg oral tablet) 1 Tablets By Mouth Every day Unchanged midodrine (midodrine 2.5 mg oral tablet) 2 times a day 2.5 Unknown, oral, 0 Refill(s), Take 1 tablet (2.5 mg total) by mouth 2 (two) times a day. Unchanged ondansetron (ondansetron 4 mg Tab) Oral Unchanged pantoprazole 40 Milligram By Mouth 2 times a day Unchanged phentermine (phentermine 37.5 mg Tab) Unchanged polycarbophil (Fiber Tabs) 1 tab By Mouth Every day Unchanged sucralfate (Carafate 1 gram Tab) 1 Tablets By Mouth 4 times a day Unchanged temazepam 30 Milligram By Mouth Once a day (at bedtime) Unchanged tizanidine 4 Milligram By Mouth 2 times a day as needed for Muscle pain Unchanged topiramate (topiramate 25 mg Tab) 180 EA, 0 Refill(s), TAKE TWO TABLETS BY MOUTH ONCE DAILY Test Results No qualifying data available. Allergies Latex (UNKNOWN) Tape (Itching) aspirin (Unknown) penicillins (UNKNOWN) sulfa drugs (UNKNOWN) Problems Ongoing - Any problem that you are currently receiving treatment for. CHF (congestive heart failure) COPD (chronic obstructive pulmonary disease) Hypertension Kidney failure Education Materials Endoscopy Care After Procedure Please read the instructions outlined below and refer to this sheet in the next few weeks. These discharge instructions provide you with general information on caring for yourself after you leave the hospital. Your doctor may also give you specific instructions. While your treatment has been planned according to the most current medical practices available, unavoidable complications occasionally occur. If you have any problems or questions after discharge, please call your doctor. ACTIVITY ? You may resume your regular activity but move at a slower pace for the next 24 hours. ? Take frequent rest periods for the next 24 hours. ? Walking will help expel (get rid of) the air and reduce the bloated feeling in your abdomen. ? No driving for 24 hours (because of the anesthesia (medicine) used during the test). ? You may shower. ? Do not sign any important legal documents or operate any machinery for 24 hours (because of the anesthesia used during the test). NUTRITION ? Drink plenty of fluids. ? You may resume your normal diet. ? Begin with a light meal and progress to your normal diet. ? Avoid alcoholic beverages for 24 hours or as instructed by your caregiver. MEDICATIONS ? You may resume your normal medications unless your caregiver tells you otherwise. WHAT YOU CAN EXPECT TODAY ? You may experience abdominal discomfort such as a feeling of fullness or ?gas? pains. FOLLOW-UP ? Your doctor will discuss the results of your test with you. SEEK IMMEDIATE MEDICAL ATTENTION IF ANY OF THE FOLLOWING OCCUR: ? Excessive nausea (feeling sick to your stomach) and/or vomiting. ? Severe abdominal pain and distention (swelling). ? Trouble swallowing. ? Temperature over 100 F (37.8? C). ? Rectal bleeding or vomiting of blood. Document Released: 05/19/2005 Document Re-Released: 03/29/2007 ExitCare? Patient Information ?2010 [employer]. Esophageal Dilatation Esophageal dilatation, also called esophageal dilation, is a procedure to widen or open a blocked or narrowed part of the esophagus. The esophagus is the part of the body that moves food and liquid from the mouth to the stomach. You may need this procedure if: ? You have a buildup of scar tissue in your esophagus that makes it difficult, painful, or impossible to swallow. This can be caused by gastroesophageal reflux disease (GERD). ? You have cancer of the esophagus. ? There is a problem with how food moves through your esophagus. In some cases, you may need this procedure repeated at a later time to dilate the esophagus gradually. Tell a health care provider about: ? Any allergies you have. ? All medicines you are taking, including vitamins, herbs, eye drops, creams, and tyaa-djr-rwohfwi medicines. ? Any problems you or family members have had with anesthetic medicines. ? Any blood disorders you have. ? Any surgeries you have had. ? Any medical conditions you have. ? Any antibiotic medicines you are required to take before dental procedures. ? Whether you are or may be . What are the risks? Generally, this is a safe procedure. However, problems may occur, including: ? Bleeding due to a tear in the lining of the esophagus. ? A hole, or perforation, in the esophagus. What happens before the procedure? ? Ask your health care provider about: ? Changing or stopping your regular medicines. This is especially important if you are taking diabetes medicines or blood thinners. ? Taking medicines such as aspirin and ibuprofen. These medicines can thin your blood. Do not take these medicines unless your health care provider tells you to take them. ? Taking cojp-zdk-ykedupe medicines, vitamins, herbs, and supplements. ? Follow instructions from your health care provider about eating or drinking restrictions. ? Plan to have a responsible adult take you home from the hospital or clinic. ? Plan to have a responsible adult care for you for the time you are told after you leave the hospital or clinic. This is important. What happens during the procedure? ? You may be given a medicine to help you relax (sedative). ? A numbing medicine may be sprayed into the back of your throat, or you may gargle the medicine. ? Your health care provider may perform the dilatation using various surgical instruments, such as: ? Simple dilators. This instrument is carefully placed in the esophagus to stretch it. ? Guided wire bougies. This involves using an endoscope to insert a wire into the esophagus. A dilator is passed over this wire to enlarge the esophagus. Then the wire is removed. ? Balloon dilators. An endoscope with a small balloon is inserted into the esophagus. The balloon is inflated to stretch the esophagus and open it up. The procedure may vary among health care providers and hospitals. What can I expect after the procedure? ? Your blood pressure, heart rate, breathing rate, and blood oxygen level will be monitored until you leave the hospital or clinic. ? Your throat may feel slightly sore and numb. This will get better over time. ? You will not be allowed to eat or drink until your throat is no longer numb. ? When you are able to drink, urinate, and sit on the edge of the bed without nausea or dizziness, you may be able to return home. Follow these instructions at home: ? Take mcac-qcs-pffsgbw and prescription medicines only as told by your health care provider. ? If you were given a sedative during the procedure, it can affect you for several hours. Do not drive or operate machinery until your health care provider says that it is safe. ? Plan to have a responsible adult care for you for the time you are told. This is important. ? Follow instructions from your health care provider about any eating or drinking restrictions. ? Do not use any products that contain nicotine or tobacco, such as cigarettes, e-cigarettes, and chewing tobacco. If you need help quitting, ask your health care provider. ? Keep all follow-up visits. This is important. Contact a health care provider if: ? You have a fever. ? You have pain that is not relieved by medicine. Get help right away if: ? You have chest pain. ? You have trouble breathing. ? You have trouble swallowing. ? You vomit blood. ? You have black, tarry, or bloody stools. These symptoms may represent a serious problem that is an emergency. Do not wait to see if the symptoms will go away. Get medical help right away. Call your local emergency services (911 in the [place] Do not drive yourself to the hospital. Summary ? Esophageal dilatation, also called esophageal dilation, is a procedure to widen or open a blocked or narrowed part of the esophagus. ? Plan to have a responsible adult take you home from the hospital or clinic. ? For this procedure, a numbing medicine may be sprayed into the back of your throat, or you may gargle the medicine. ? Do not drive or operate machinery until your health care provider says that it is safe. This information is not intended to replace advice given to you by your health care provider. Make sure you discuss any questions you have with your health care provider. Document Revised: 02/20/2021 Document Reviewed: 02/20/2021 [employer] Patient Education ? 2022 [employer] Colonoscopy Care After Surgery Please read the instructions outlined below and refer to this sheet in the next few weeks. These discharge instructions provide you with general information on caring for yourself after you leave the hospital. Your doctor may also give you specific instructions. While your treatment has been planned according to the most current medical practices available, unavoidable complications occasionally occur. If you have any problems or questions after discharge, please call your doctor. ACTIVITY You may resume your regular activity, but move at a slower pace for the next 24 hours. Take frequent rest periods for the next 24 hours. Walking will help get rid of the air and reduce the bloated feeling in your abdomen (belly). No driving for 24 hours (because of the anesthesia (medicine) used during the test). You may shower. Do not sign any important legal documents or operate any machinery for 24 hours (because of the anesthesia used during the test). NUTRITION Drink plenty of fluids. You may resume your normal diet as instructed by your doctor. Begin with a light meal and progress to your normal diet. Heavy or fried foods are harder to digest and may make you feel nauseated (sick to your stomach). Avoid alcoholic beverages for 24 hours or as instructed. MEDICATIONS You may resume your normal medications unless your doctor tells you otherwise. WHAT YOU CAN EXPECT TODAY Some feelings of bloating in the abdomen. Passage of more gas than usual. Spotting of blood in your stool or on the toilet paper. FOLLOW-UP Your doctor will discuss the results of your test with you. SEEK IMMEDIATE MEDICAL ATTENTION IF: There is more than a spotting of blood in your stool. There is abdominal distention (your abdomen is swollen). There is vomiting. You have a temperature over 101.5 F. There is abdominal pain or discomfort that is severe or gets worse throughout the day. Diverticulosis Many people have small pouches in their colon called diverticulum. The diverticulum bulge outward through weak spots in the colon. You could have one or more of these pouches in the colon. The condition of having these pouches in the colon is called diverticulosis or diverticular disease. Diverticulosis is usually diagnosed by tests to evaluate something else. For example, you may have had a colonoscopy to screen for colon cancer when the diverticulosis was found. Most people with diverticulosis do not have any discomfort or problems. If symptoms develop, they may include mild cramps, bloating, and constipation. A complication of this condition is called diverticulitis. This is when the diverticulum become inflamed and infected. How to treat diverticulosis: Increasing the amount of fiber in the diet may reduce symptoms of diverticulosis and prevent complications such as diverticulitis (infected diverticuli). Fiber keeps stool soft and lowers pressure inside the colon so that bowel contents can move through easily. You should eat 20 to 35 grams of fiber each day. The table below shows the amount of fiber in some foods that you can easily add to your diet. Adding fiber slowly may decrease the bloating and fullness sometimes felt with an immediate high fiber diet. The doctor may also recommend taking a fiber product such as Citrucel or Metamucil once a day. In the past people with diverticulosis were to avoid nuts, corn, and seeds. This has not been found to be true. If you find that certain foods create cramping or bloating, avoid that food. Foods high in fiber include: Fresh fruits, fresh vegetables, legumes (beans), whole wheat bread, bran muffins or cereal, and nuts. See the table below for examples of high fiber foods. Remember, your goal is 20- 35 grams per day. Amount of fiber in different foods Food Serving Grams of fiber Fruits Apple (with skin) 1 medium apple 4.4 Banana 1 medium banana 3.1 Oranges 1 orange 3.1 Prunes 1 cup, pitted 12.4 Juices Apple, unsweetened, w/added ascorbic acid 1 cup 0.5 Grapefruit, white, canned, sweetened 1 cup 0.2 Grape, unsweetened, w/added ascorbic acid 1 cup 0.5 [place] 1 cup 0.7 Vegetables Cooked Green beans 1 cup 4.0 Carrots 1/2 cup sliced 2.3 Peas 1 cup 8.8 Potato (baked, with skin) 1 medium potato 3.8 Raw [place] (with peel) 1 cucumber 1.5 Lettuce 1 cup shredded 0.5 Tomato 1 medium tomato 1.5 Spinach 1 cup 0.7 Legumes Baked beans, canned, no salt added 1 cup 13.9 Kidney beans, canned 1 cup 13.6 Kirby beans, canned 1 cup 11.6 Lentils, boiled 1 cup 15.6 Breads, pastas, flours Bran muffins 1 medium muffin 5.2 Oatmeal, cooked 1 cup 4.0 White bread 1 slice 0.6 Whole-wheat bread 1 slice 1.9 Pasta and rice, cooked Macaroni 1 cup 2.5 Rice, brown 1 cup 3.5 Rice, white 1 cup 0.6 Spaghetti (regular) 1 cup 2.5 Nuts Almonds 1/2 cup 8.7 Peanuts 1/2 cup 7.9 Chart from [employer] 2013. SEEK IMMEDIATE MEDICAL CARE IF: You develop abdominal (belly) pain. An oral temperature above _ 101? F__develops. Repeated vomiting occurs. Blood is being passed in stools (bright red or black tarry stools). You develop any bowel problems or changes which you have not had before. Extra Information: To learn how much fiber and other nutrients are in different foods, visit the [place] Department of Agriculture (USDA) National Nutrient Database at: http://www.nal.usda.gov/fnic/foodcomp/search/ Created using data from the USDA National Nutrient Database for Standard Reference. Available at http://www.Takes.usda.gov/fnic/foodcomp/search/. Information adapted from: ExitCare? Patient Information ?2009 [employer]. [employer] 2013 http://www.[employer]/contents/twgfrjigigwh-jvgzkyf-bdkoyl-the-basics Common Emergency Awareness Tips IS IT A STROKE? Act FAST and Check for these signs: FACE Does the face look uneven? ARM Does one arm drift down? SPEECH Does their speech sound strange? TIME Call at any sign of stroke Heart Attack Signs Chest discomfort: Most heart attacks involve discomfort in the center of the chest and lasts more than a few minutes, or goes away and comes back. It can feel like uncomfortable pressure, squeezing, fullness or pain. Discomfort in upper body: Symptoms can include pain or discomfort in one or both arms, back, neck, jaw or stomach. Shortness of breath: With or without discomfort. Other signs: Breaking out in a cold sweat, nausea, or lightheaded. Remember, MINUTES DO MATTER. If you experience any of these heart attack warning signs, call to get immediate medical attention! Patient Survey You may receive a survey in the mail asking you about your stay with us. We want to hear from you, please share your experience with us by completing your survey. Thank you for choosing [facility]. Rosario Award Nomination The ROSARIO (Diseases Attacking the Immune SYstem) Award is an international recognition program that honors and celebrates the skillful, compassionate care nurses provide every day. Anyone who experiences or observes amazing care being provided by a nurse is encouraged to submit a nomination. To nominate your nurse, use your smart phone to scan the QR code below. Patient Portal You may access all of your results and other medical record information on our secure patient portal. If you are not signed up for this yet, please contact [employer] at [phone] to get signed up today. Patient Name: RENUKA GRAHAM I have received this information and my questions have been answered. Patient/Licensed Electrician Name: Patient/Licensed Electrician Signature: Relationship to Patient: Witness Name/Signature: Date: Result Comment: Electronical ly Signed By: Sharon Boyd RN\.br\Date and Time Signed: 06/01/24 13:15 EDT PATIENT EDUCATION - TEXT Observed: 06/01 1:14 PM Status: C Source: [facility] Patient Education - Text Endoscopy Care After Procedure Please read the instructions outlined below and refer to this sheet in the next few weeks. These discharge instructions provide you with general information on caring for yourself after you leave the hospital. Your doctor may also give you specific instructions. While your treatment has been planned according to the most current medical practices available, unavoidable complications occasionally occur. If you have any problems or questions after discharge, please call your doctor. ACTIVITY ? You may resume your regular activity but move at a slower pace for the next 24 hours. ? Take frequent rest periods for the next 24 hours. ? Walking will help expel (get rid of) the air and reduce the bloated feeling in your abdomen. ? No driving for 24 hours (because of the anesthesia (medicine) used during the test). ? You may shower. ? Do not sign any important legal documents or operate any machinery for 24 hours (because of the anesthesia used during the test). NUTRITION ? Drink plenty of fluids. ? You may resume your normal diet. ? Begin with a light meal and progress to your normal diet. ? Avoid alcoholic beverages for 24 hours or as instructed by your caregiver. MEDICATIONS ? You may resume your normal medications unless your caregiver tells you otherwise. WHAT YOU CAN EXPECT TODAY ? You may experience abdominal discomfort such as a feeling of fullness or ?gas? pains. FOLLOW-UP ? Your doctor will discuss the results of your test with you. seek immediate medical attention if any of the following occur: ? Excessive nausea (feeling sick to your stomach) and/or vomiting. ? Severe abdominal pain and distention (swelling). ? Trouble swallowing. ? Temperature over 100 F (37.8? C). ? Rectal bleeding or vomiting of blood. Document Released: 05/19/2005 Document Re-Released: 03/29/2007 ExitCare? Patient Information ?2009 [employer]. Colonoscopy Care After Surgery Please read the instructions outlined below and refer to this sheet in the next few weeks. These discharge instructions provide you with general information on caring for yourself after you leave the hospital. Your doctor may also give you specific instructions. While your treatment has been planned according to the most current medical practices available, unavoidable complications occasionally occur. If you have any problems or questions after discharge, please call your doctor. ACTIVITY You may resume your regular activity, but move at a slower pace for the next 24 hours. Take frequent rest periods for the next 24 hours. Walking will help get rid of the air and reduce the bloated feeling in your abdomen (belly). No driving for 24 hours (because of the anesthesia (medicine) used during the test). You may shower. Do not sign any important legal documents or operate any machinery for 24 hours (because of the anesthesia used during the test). NUTRITION Drink plenty of fluids. You may resume your normal diet as instructed by your doctor. Begin with a light meal and progress to your normal diet. Heavy or fried foods are harder to digest and may make you feel nauseated (sick to your stomach). Avoid alcoholic beverages for 24 hours or as instructed. MEDICATIONS You may resume your normal medications unless your doctor tells you otherwise. WHAT YOU CAN EXPECT TODAY Some feelings of bloating in the abdomen. Passage of more gas than usual. Spotting of blood in your stool or on the toilet paper. FOLLOW-UP Your doctor will discuss the results of your test with you. SEEK IMMEDIATE MEDICAL ATTENTION IF: There is more than a spotting of blood in your stool. There is abdominal distention (your abdomen is swollen). There is vomiting. You have a temperature over 101.5 F. There is abdominal pain or discomfort that is severe or gets worse throughout the day. Diverticulosis Many people have small pouches in their colon called diverticulum. The diverticulum bulge outward through weak spots in the colon. You could have one or more of these pouches in the colon. The condition of having these pouches in the colon is called diverticulosis or diverticular disease. Diverticulosis is usually diagnosed by tests to evaluate something else. For example, you may have had a colonoscopy to screen for colon cancer when the diverticulosis was found. Most people with diverticulosis do not have any discomfort or problems. If symptoms develop, they may include mild cramps, bloating, and constipation. A complication of this condition is called diverticulitis. This is when the diverticulum become inflamed and infected. How to treat diverticulosis: Increasing the amount of fiber in the diet may reduce symptoms of diverticulosis and prevent complications such as diverticulitis (infected diverticuli). Fiber keeps stool soft and lowers pressure inside the colon so that bowel contents can move through easily. You should eat 20 to 35 grams of fiber each day. The table below shows the amount of fiber in some foods that you can easily add to your diet. Adding fiber slowly may decrease the bloating and fullness sometimes felt with an immediate high fiber diet. The doctor may also recommend taking a fiber product such as Citrucel or Metamucil once a day. In the past people with diverticulosis were to avoid nuts, corn, and seeds. This has not been found to be true. If you find that certain foods create cramping or bloating, avoid that food. Foods high in fiber include: Fresh fruits, fresh vegetables, legumes (beans), whole wheat bread, bran muffins or cereal, and nuts. See the table below for examples of high fiber foods. Remember, your goal is 20- 35 grams per day. Amount of fiber in different foods Food Serving Grams of fiber Fruits Apple (with skin) 1 medium apple 4.4 Banana 1 medium banana 3.1 Oranges 1 orange 3.1 Prunes 1 cup, pitted 12.4 Juices Apple, unsweetened, w/added ascorbic acid 1 cup 0.5 Grapefruit, white, canned, sweetened 1 cup 0.2 Grape, unsweetened, w/added ascorbic acid 1 cup 0.5 [place] 1 cup 0.7 Vegetables Cooked Green beans 1 cup 4.0 Carrots 1/2 cup sliced 2.3 Peas 1 cup 8.8 Potato (baked, with skin) 1 medium potato 3.8 Raw [place] (with peel) 1 cucumber 1.5 Lettuce 1 cup shredded 0.5 Tomato 1 medium tomato 1.5 Spinach 1 cup 0.7 Legumes Baked beans, canned, no salt added 1 cup 13.9 Kidney beans, canned 1 cup 13.6 Kirby beans, canned 1 cup 11.6 Lentils, boiled 1 cup 15.6 Breads, pastas, flours Bran muffins 1 medium muffin 5.2 Oatmeal, cooked 1 cup 4.0 White bread 1 slice 0.6 Whole-wheat bread 1 slice 1.9 Pasta and rice, cooked Macaroni 1 cup 2.5 Rice, brown 1 cup 3.5 Rice, white 1 cup 0.6 Spaghetti (regular) 1 cup 2.5 Nuts Almonds 1/2 cup 8.7 Peanuts 1/2 cup 7.9 Chart from [facility] 2013. SEEK IMMEDIATE MEDICAL CARE IF: You develop abdominal (belly) pain. An oral temperature above _ 101? F__develops. Repeated vomiting occurs. Blood is being passed in stools (bright red or black tarry stools). You develop any bowel problems or changes which you have not had before. Extra Information: To learn how much fiber and other nutrients are in different foods, visit the [place] Department of Agriculture (USDA) National Nutrient Database at: http://www.Takes.usda.gov/fnic/foodcomp/search/ Created using data from the USDA National Nutrient Database for Standard Reference. Available at http://www.Takes.FiTeq.gov/fnic/foodcomp/search/. Information adapted from: [employer]? Patient Information ?2009 [employer]. [employer] 2012 http://www.[employer]el/contents/jlbzefullomb-eyrccbj-wispxw-the-basics Gastroenterology Esophageal Dilatation Esophageal dilatation, also called esophageal dilation, is a procedure to widen or open a blocked or narrowed part of the esophagus. The esophagus is the part of the body that moves food and liquid from the mouth to the stomach. You may need this procedure if: ? You have a buildup of scar tissue in your esophagus that makes it difficult, painful, or impossible to swallow. This can be caused by gastroesophageal reflux disease (GERD). ? You have cancer of the esophagus. ? There is a problem with how food moves through your esophagus. In some cases, you may need this procedure repeated at a later time to dilate the esophagus gradually. Tell a health care provider about: ? Any allergies you have. ? All medicines you are taking, including vitamins, herbs, eye drops, creams, and baqn-iut-qfmkccv medicines. ? Any problems you or family members have had with anesthetic medicines. ? Any blood disorders you have. ? Any surgeries you have had. ? Any medical conditions you have. ? Any antibiotic medicines you are required to take before dental procedures. ? Whether you are or may be . What are the risks? Generally, this is a safe procedure. However, problems may occur, including: ? Bleeding due to a tear in the lining of the esophagus. ? A hole, or perforation, in the esophagus. What happens before the procedure? ? Ask your health care provider about: ? Changing or stopping your regular medicines. This is especially important if you are taking diabetes medicines or blood thinners. ? Taking medicines such as aspirin and ibuprofen. These medicines can thin your blood. Do not take these medicines unless your health care provider tells you to take them. ? Taking sknl-soc-nerxavv medicines, vitamins, herbs, and supplements. ? Follow instructions from your health care provider about eating or drinking restrictions. ? Plan to have a responsible adult take you home from the hospital or clinic. ? Plan to have a responsible adult care for you for the time you are told after you leave the hospital or clinic. This is important. What happens during the procedure? ? You may be given a medicine to help you relax (sedative). ? A numbing medicine may be sprayed into the back of your throat, or you may gargle the medicine. ? Your health care provider may perform the dilatation using various surgical instruments, such as: ? Simple dilators. This instrument is carefully placed in the esophagus to stretch it. ? Guided wire bougies. This involves using an endoscope to insert a wire into the esophagus. A dilator is passed over this wire to enlarge the esophagus. Then the wire is removed. ? Balloon dilators. An endoscope with a small balloon is inserted into the esophagus. The balloon is inflated to stretch the esophagus and open it up. The procedure may vary among health care providers and hospitals. What can I expect after the procedure? ? Your blood pressure, heart rate, breathing rate, and blood oxygen level will be monitored until you leave the hospital or clinic. ? Your throat may feel slightly sore and numb. This will get better over time. ? You will not be allowed to eat or drink until your throat is no longer numb. ? When you are able to drink, urinate, and sit on the edge of the bed without nausea or dizziness, you may be able to return home. Follow these instructions at home: ? Take dcut-huz-tfievfs and prescription medicines only as told by your health care provider. ? If you were given a sedative during the procedure, it can affect you for several hours. Do not drive or operate machinery until your health care provider says that it is safe. ? Plan to have a responsible adult care for you for the time you are told. This is important. ? Follow instructions from your health care provider about any eating or drinking restrictions. ? Do not use any products that contain nicotine or tobacco, such as cigarettes, e-cigarettes, and chewing tobacco. If you need help quitting, ask your health care provider. ? Keep all follow-up visits. This is important. Contact a health care provider if: ? You have a fever. ? You have pain that is not relieved by medicine. Get help right away if: ? You have chest pain. ? You have trouble breathing. ? You have trouble swallowing. ? You vomit blood. ? You have black, tarry, or bloody stools. These symptoms may represent a serious problem that is an emergency. Do not wait to see if the symptoms will go away. Get medical help right away. Call your local emergency services (911 in the [place] Do not drive yourself to the hospital. Summary ? Esophageal dilatation, also called esophageal dilation, is a procedure to widen or open a blocked or narrowed part of the esophagus. ? Plan to have a responsible adult take you home from the hospital or clinic. ? For this procedure, a numbing medicine may be sprayed into the back of your throat, or you may gargle the medicine. ? Do not drive or operate machinery until your health care provider says that it is safe. This information is not intended to replace advice given to you by your health care provider. Make sure you discuss any questions you have with your health care provider. Document Revised: 02/20/2021 Document Reviewed: 02/20/[address]21 [address] Accounting Patient Education ? 2022 [employer] ENDOSCOPIC PROCEDURE REPORT - OTHER Observed: 06/01/2024 1:09 PM Status: F Source: [facility] Endoscopic Procedure Report - Other Patient: RENUKA GRAHAM Age: 68 years Sex: Female : 1955 Associated Diagnoses: None Author: Glen Bejarano MD Pre-Procedure Procedure Date 06/01/2024 13:10:00 . Procedure Type: Colonoscopy. Procedure provider Performed by Glen Bejarano MD. Current history and physical Documented on chart. Reviewed. EGD (esophagogastroduodenoscopic) electrohydraulic lithotripsy of bezoar in stomach (4957014755) on 06/15/2019 at 63 Years. Colonoscopy ([id number]) on 08/02/2018 at 63 Years. Appendicectomy (047434420). Tonsillectomy (343705255). Gastric bypass (7238934754). Both knees (72790287). Tendonitis of left ankle ([id number]). Caesarean section ().. Past Medical History No active or resolved past medical history items have been selected or recorded.. Family History Patient was adopted. History is unknown.. Procedure History EGD (esophagogastroduodenoscopic) electrohydraulic lithotripsy of bezoar in stomach (3874226860) on 06/15/2019 at 63 Years. Colonoscopy ([id number]) on 08/02/2018 at 63 Years. Appendicectomy (351608875). Tonsillectomy (123088586). Gastric bypass (4110884662). Both knees (61352896). Tendonitis of left ankle (978037474930955). Caesarean section ().. Colorectal neoplasm risk assessment High risk Previous history of polyps. . Informed Consent After discussing the rationale, risks and benefits, and alternatives to this procedure, the patient provided signed consent for the procedure. Pre-procedure diagnosis: History of colon polyps. Medications (Selected) Inpatient Medications Ordered Lactated Ringers IV Trang 1000 mL 1,000 mL: 1,000 mL, IV, 100 mL/hr, Routine, Start date 06/01/24 11:27:00 EDT, 10 hour(s), Total volume (mL): 1,000, 96 kg, 2.07, m2 Sodium Chloride 0.9% IV Trang 1000 mL 1,000 mL: 1,000 mL, IV, 20 mL/hr, Routine, Start date 06/01/24 7:23:00 EDT, 50 hour(s), Total volume (mL): 1,000 Prescriptions Prescribed Carafate 1 gram Tab: 1 gram = 1 tab(s), Oral, QID, # 120 tab(s), Refills(s) 0, Pharmacy: [id number] Documented Medications Documented Fiber Tabs: 1 tab, Oral, Daily, Refills(s) 0, Prophylaxis Symbicort 160/4.5 inhalation aerosol with adapter: Refill(s) 0, 10 gm, 0 Refill(s), INHALE 2 PUFFS TWICE A DAY Vitamin D3: Oral, BID, Refills(s) 0, Prophylaxis Vitamin D3: Oral, Refills(s) 0, Prophylaxis acetaminophen-oxycodone 325 mg-5 mg oral tablet: 1 tab(s), Oral, q6hr as needed for pain, Refill(s) 0 albuterol HFA 90 mcg/inh MDI: Refill(s) 0, Respiratory (Inhalation), 0 Refill(s) alendronate 5 mg oral tablet: 1, Oral, Daily, osteoporosis, Refills(s) 0, Other (see comment) allopurinol: Oral, Daily, Refills(s) 0, Gout pain bumetanide 1 mg Tab: 180 EA, 0 Refill(s), TAKE ONE TABLET BY MOUTH TWICE A DAY, Refills(s) 0 cyclobenzaprine: 10 Unknown, Oral, Refills(s) 0 duloxetine 30 mg oral delayed release capsule: 1 Unknown, 0 Refill(s), Refills(s) 0 ferrous sulfate: 2,000 mg, Oral, BID, Refills(s) 0, Prophylaxis fluticasone 0.05 mg/inh Nasal [place]: 2 spray(s), Nasal, Daily, Refill(s) 0, Allergy symptoms gabapentin 300 mg Cap: 300 mg = 1 cap(s), Oral, TID, Oral, Refills(s) 0, Neuropathy hydrOXYzine: 10 mg, Oral, QID, PRN as needed for anxiety, Refills(s) 0 magnesium gluconate 500 mg oral tablet: 500 mg = 1 tab(s), Oral, Daily, Refills(s) 0 midodrine 2.5 mg oral tablet: BID, 2.5 Unknown, oral, 0 Refill(s), Take 1 tablet (2.5 mg total) by mouth 2 (two) times a day., Refills(s) 0 ondansetron 4 mg Tab: Oral, Refills(s) 0, Nausea pantoprazole: 40 mg, Oral, BID, Refills(s) 0, Control of stomach acid phentermine 37.5 mg Tab: Refills(s) 0 temazepam: 30 mg, Oral, Once a day (at bedtime), Refills(s) 0, Sleep tizanidine: 4 mg, Oral, BID, PRN Muscle pain, Refills(s) 0 topiramate 25 mg Tab: 180 EA, 0 Refill(s), TAKE TWO TABLETS BY MOUTH ONCE DAILY, Refills(s) 0 ASA Classification: Class II. . Monitoring: See anesthesia record. . Procedure The procedure was performed in the hospital. See anesthesia record for sedation given during procedure. The patient was positioned starting in the left lateral decubitus position. Endoscope type used was a pediatric-size. The endoscope was lubricated then introduced through the anus. The scope was advanced to the cecum. Difficulty: Difficult due to severe sigmoid diverticulosis and excessive looping with redundant colon. The bowel preparation quality was adequate (see polyps greater than or equal to 6 millimeters). The patient tolerated the procedure well. Time to Cecum: 22 min Withdrawal time 9 min Findings 1. Small internal hemorrhoids 2. Severe sigmoid diverticulosis 3. Significant redundant colon, otherwise normal colonic mucosa Images Procedure images: Rec1_hd_video___[id number].jpg Rec_hd_video___15_[id number].jpg Rec1_hd_video___16_07_[id number].jpg Rec1_hd_video___15_27_041.jpg Rec1_hd_video___10_47_[id number].jpg Rec1_hd_video___09_08_055.jpg Rec1_hd_video___08_29_500.jpg Rec1_hd_video_08_14T12___[id number].jpg . Post-Procedure Complications: none. Estimated blood loss: none. Specimens: none. Devices/ implants: none left in place. Impression and Plan 1. Small internal hemorrhoids 2. Severe sigmoid diverticulosis 3. Significant redundant colon, otherwise normal colonic mucosa Recommendations: Repeat colonoscopy:: In 10 years per patient at the age . Follow-up:: GI clinic as needed. Diet:: Previous. Medication resumption:: Continue current medications, Avoid NSAIDs. Return to activities:: After 24 hours. Education and Follow-up: Counseled: Patient, Family. Result Comment: Electronical ly Signed By: Glen Bejarano MD\.br\Date and Time Signed: 06/01/24 13:11 EDT Other Comment: Missing Attac hment - attachment storage system not supported [id number] Can be viewed in source system Missing Attachment - attachment storage system not supported [id number] Can be viewed in source systemMissing Attachment - attachment storage system not supported [id number] Can be viewed in source systemMissing Attachment - attachment storage system not supported [id number] Can be viewed in source systemMissing Attachment - attachment storage system not supported [id number] Can be viewed in source systemMissing Attachment - attachment storage system not supported [id number] Can be viewed in source systemMissing Attachment - attachment storage system not supported [id number] Can be viewed in source systemMissing Attachment - attachment storage system not supported [id number] Can be viewed in source system ENDOSCOPIC PROCEDURE REPORT - OTHER Obse rved: 06/01/2024 12:33 PM Status: F Source: [facility] Endoscopic Procedure Report - Other Patient: RENUKA GRAHAM Age: 68 years Sex: Female : 1955 Associated Diagnoses: None Author: Glen Bejarano MD Pre-Procedure Procedure Date 06/01/2024 12:33:00 . Procedure Type: Esophagogastroduodenoscopy with biopsy, Dilation with Delcid. Procedure provider Performed by Glen Bejarano MD. Current history and physical Documented on chart. Informed Consent After discussing the rationale, risks and benefits, and alternatives to this procedure, the patient provided signed consent for the procedure. Pre-procedure diagnosis: Dysphagia . Medications Anticoagulant/antiplatelet None. ASA Classification: Class II. . Monitoring: See anesthesia record. . Anticoagulation use: Procedure The procedure was performed in the hospital. See anesthesia record for sedation given during procedure. The patient was positioned starting in the left lateral decubitus position and with safety measures. Endoscope type used was an adult-size, introduced orally, advanced to jejunum. No difficulty was encountered during the procedure. Views were excellent. The patient tolerated the procedure well. Findings 1. Esophageal landmarks identified, normal examined esophagus. Empiric dilation with Delcid 54 [place]an was done, no mucosal disruption was noted afterwards 2. Evidence of surgery in the stomach with Joellen-en-Y anatomy, normal anastomosis, minimal patchy erythema in the gastric pouch, otherwise normal gastric pouch. Random biopsies were taken to rule out H. pylori 3. Normal examined efferent jejunal loop, advanced about 10 cm Images Procedure images: Rec1_hd_video_2023__[id number].jpg Rec1_hd_video_4__[id number]_[id number]_[id number].jpg Rec1_hd_video_4_08_14T11_[id number].jpg Rec1_hd_video_2023__[id number]_[id number].jpg . Post-Procedure Complications: none. Estimated blood loss: Minimal. Specimens: sent to pathology, None. Devices/ implants: none left in place. Impression and Plan 1. Esophageal landmarks identified, normal examined esophagus. Empiric dilation with Delcid 54 [place]an was done, no mucosal disruption was noted afterwards 2. Evidence of surgery in the stomach with Joellen-en-Y anatomy, normal anastomosis, minimal patchy erythema in the gastric pouch, otherwise normal gastric pouch. Random biopsies were taken to rule out H. pylori 3. Normal examined efferent jejunal loop, advanced about 10 cm Recommendations: -Resume previous diet -Resume home medications -Await pathology results, follow-up in GI clinic next available Result Comment: Electronical ly Signed By: Darci BRYANT, Glen Ta\.br\Date and Time Signed: 06/01/24 12:35 EDT Other Comment: Missing Attac hment - attachment storage system not supported [id number] Can be viewed in source system Missing Attachment - attachment storage system not supported [id number] Can be viewed in source systemMissing Attachment - attachment storage system not supported [id number] Can be viewed in source systemMissing Attachment - attachment storage system not supported [id number] Can be viewed in source system 07 ADDENDUM REPORT Observed: 06/01/2024 12:32 PM Status: F Source: [facility] [address] [place] [address]- Surgical Pathology Report Collected Date/Time: 06/01/2024 12:32 EDT Pathologist: Mitesh Muro MD Received Date/Time: 06/02/2024 09:06 EDT Silvestre Bejarano MD, Glen Bejarano MD, Glen Ta 07 Addendum Report - 06/09/2024 14:07 EDT - Auth (Verified) Addendum IHC stains are negative for Helicobacter pylori. Appropriate reactive controls are performed and reviewed (Electronic Signature) Gene Juarez MD 06/09/2024 14:07 Addendum Reason H pylori. 07 Surgical Pathology Report - 06/03/2024 15:20 EDT - Auth (Verified) Final Diagnosis STOMACH, BIOPSY: Chronic inactive gastritis. (Electronic Signature) Mitesh Muro MD 06/03/2024 15:20 Clinical Information Dysphagia, history of gastric bypass, diverticular disease Pre-Op Diagnosis: Dysphagia, history of gastric bypass, diverticular disease Procedure: EGD Post-Op Diagnosis: 1. Esophageal landmarks identified, normal examined esophagus. Empiric dilation with Delcid 54 [place]an was done, no mucosal disruption was noted afterwards 2. Evidence of surgery in the stomach with Joellen-en-Y anatomy, normal anastomosis, minimal patchy erythema in the gastric pouch, otherwise normal gastric pouch. Random biopsies were taken to rule out H. pylori 3. Normal examined efferent jejunal loop, advanced about 10 cm Specimen(s) Received Gastric biopsy Gross Description Received in formalin labeled with patient name, number, and gastric biopsy are four fragments of valdez tissue ranging from less than 0.1 cm up to 0.6 cm in greatest dimension. Specimen is entirely submitted in one cassette. (DC) DC:[facility] Microscopic Description Microscopic examination performed unless gross only specified. The use of one or more reagents in the above tests is regulated as an analyte specific reagent (ASR). The test or tests are ordered following initial H&E microscopic examination. The performance characteristics were determined by the Laboratory of [facility]. They have not been cleared or approved by the US Food and Drug Administration. The FDA has determined that such clearance or approval is not necessary. These tests are used for clinical purposes. They should not be regarded as investigational or for research. Appropriate positive and negative controls are performed and are acceptable. Performed By: #### [id number] #### [facility] [address] [place] [address] 07 ADDENDUM REPORT Observed: 06/01/2024 12:32 PM Status: F Source: [facility] [address] [facility] [place] [address]- Surgical Pathology Report Collected Date/Time: 06/01/2024 12:32 EDT Pathologist: Mitesh Muro MD Received Date/Time: 06/02/2024 09:06 EDT Silvestre Bejarano MD, Glen Bejarano MD, Glen Ta 07 Addendum Report - 06/09/2024 14:07 EDT - Auth (Verified) Addendum IHC stains are negative for Helicobacter pylori. Appropriate reactive controls are performed and reviewed (Electronic Signature) Gene Juarez MD 06/09/2024 14:07 Addendum Reason H pylori. 07 Surgical Pathology Report - 06/03/2024 15:20 EDT - Auth (Verified) Final Diagnosis STOMACH, BIOPSY: Chronic inactive gastritis. (Electronic Signature) Mitesh Muro MD 06/03/2024 15:20 Clinical Information Dysphagia, history of gastric bypass, diverticular disease Pre-Op Diagnosis: Dysphagia, history of gastric bypass, diverticular disease Procedure: EGD Post-Op Diagnosis: 1. Esophageal landmarks identified, normal examined esophagus. Empiric dilation with Delcid 54 [place] was done, no mucosal disruption was noted afterwards 2. Evidence of surgery in the stomach with Joellen-en-Y anatomy, normal anastomosis, minimal patchy erythema in the gastric pouch, otherwise normal gastric pouch. Random biopsies were taken to rule out H. pylori 3. Normal examined efferent jejunal loop, advanced about 10 cm Specimen(s) Received Gastric biopsy Gross Description Received in formalin labeled with patient name, number, and gastric biopsy are four fragments of valdez tissue ranging from less than 0.1 cm up to 0.6 cm in greatest dimension. Specimen is entirely submitted in one cassette. (DC) DC:[facility] Microscopic Description Microscopic examination performed unless gross only specified. The use of one or more reagents in the above tests is regulated as an analyte specific reagent (ASR). The test or tests are ordered following initial H&E microscopic examination. The performance characteristics were determined by the Laboratory of [facility]. They have not been cleared or approved by the [place] Food and Drug Administration. The FDA has determined that such clearance or approval is not necessary. These tests are used for clinical purposes. They should not be regarded as investigational or for research. Appropriate positive and negative controls are performed and are acceptable. Performed By: #### [id number] #### [facility] [address] [place] [address] SURGICAL PATHOLOGY REPORT Observed: 05/19 12:32 PM Status: F Source: [facility] [address] [facility] [place] [address]- Surgical Pathology Report Collected Date/Time: 06/01/2024 12:32 EDT Pathologist: Mitesh Muro MD Received Date/Time: 06/02/2024 09:06 EDT Silvestre Bejarano MD, Glen Bejarano MD, Glen Meredith Surgical Pathology Report - 06/03/2024 15:20 EDT - Auth (Verified) Final Diagnosis STOMACH, BIOPSY: Chronic inactive gastritis. (Electronic Signature) iMtesh Muro MD 06/03/2024 15:20 Clinical Information Dysphagia, history of gastric bypass, diverticular disease Pre-Op Diagnosis: Dysphagia, history of gastric bypass, diverticular disease Procedure: EGD Post-Op Diagnosis: 1. Esophageal landmarks identified, normal examined esophagus. Empiric dilation with Delcid 54 [place]an was done, no mucosal disruption was noted afterwards 2. Evidence of surgery in the stomach with Joellen-en-Y anatomy, normal anastomosis, minimal patchy erythema in the gastric pouch, otherwise normal gastric pouch. Random biopsies were taken to rule out H. pylori 3. Normal examined efferent jejunal loop, advanced about 10 cm Specimen(s) Received Gastric biopsy Gross Description Received in formalin labeled with patient name, number, and gastric biopsy are four fragments of valdez tissue ranging from less than 0.1 cm up to 0.6 cm in greatest dimension. Specimen is entirely submitted in one cassette. (DC) DC:[facility] Microscopic Description Microscopic examination performed unless gross only specified. The use of one or more reagents in the above tests is regulated as an analyte specific reagent (ASR). The test or tests are ordered following initial H&E microscopic examination. The performance characteristics were determined by the Laboratory of [facility]. They have not been cleared or approved by the US Food and Drug Administration. The FDA has determined that such clearance or approval is not necessary. These tests are used for clinical purposes. They should not be regarded as investigational or for research. Appropriate positive and negative controls are performed and are acceptable. Performed By: #### [id number] # ### [facility] [address] [place] [address] SURGICAL PATHOLOGY REPORT Observed: 05/19 12:32 PM Status: F Source: [facility] [address] [facility] [place] [address]- Surgical Pathology Report Collected Date/Time: 06/01/2024 12:32 EDT Pathologist: Mitesh Muro MD Received Date/Time: 06/02/2024 09:06 EDT Silvestre Bejarano MD, Glen Bejarano MD, Glen Meredith Surgical Pathology Report - 06/03/2024 15:20 EDT - Auth (Verified) Final Diagnosis STOMACH, BIOPSY: Chronic inactive gastritis. (Electronic Signature) Mitesh Muro MD 06/03/2024 15:20 Clinical Information Dysphagia, history of gastric bypass, diverticular disease Pre-Op Diagnosis: Dysphagia, history of gastric bypass, diverticular disease Procedure: EGD Post-Op Diagnosis: 1. Esophageal landmarks identified, normal examined esophagus. Empiric dilation with Delcid 54 [place]an was done, no mucosal disruption was noted afterwards 2. Evidence of surgery in the stomach with Joellen-en-Y anatomy, normal anastomosis, minimal patchy erythema in the gastric pouch, otherwise normal gastric pouch. Random biopsies were taken to rule out H. pylori 3. Normal examined efferent jejunal loop, advanced about 10 cm Specimen(s) Received Gastric biopsy Gross Description Received in formalin labeled with patient name, number, and gastric biopsy are four fragments of valdez tissue ranging from less than 0.1 cm up to 0.6 cm in greatest dimension. Specimen is entirely submitted in one cassette. (DC) DC:[facility] Microscopic Description Microscopic examination performed unless gross only specified. The use of one or more reagents in the above tests is regulated as an analyte specific reagent (ASR). The test or tests are ordered following initial H&E microscopic examination. The performance characteristics were determined by the Laboratory of [facility]. They have not been cleared or approved by the US Food and Drug Administration. The FDA has determined that such clearance or approval is not necessary. These tests are used for clinical purposes. They should not be regarded as investigational or for research. Appropriate positive and negative controls are performed and are acceptable. Performed By: #### [id number] # ### [facility] [address] [place] [address] MAIN OR INTRAOPERATIVE RECORD Observed: 06/01/2024 12:29 PM Status: C Source: [facility] Main OR Intraoperative Recor d IntraOp Document Type FT Summary Primary Physician: Glen Bejarano MD Finalized Date/Time: 06/02/24 08:36:22 Pt. Name: RENUKA GRAHAM/Sex: 1955 Female Med Rec #: [id number] Physician: Glen Bejarano MD Financial #: [id number] Pt. Type: O Room/Bed: / Admit/Disch: 06/01/24 10:48:01 - 06/01/24 23:59:59 Institution: Case Times FT Entry 1 Patient Times In Room 06/01/24 12:25:00 Out Room 06/01/24 13:09:00 Procedure Times Start 06/01/24 12:29:00 Stop 08/14/24 13:07:00 Anesthesia Times Start 06/01/24 12:25:00 Stop 06/01/24 13:09:00 Time at Cecum 06/01/24 12:58:00 Last Modified By: Kami REYNA, Vitaliy Holley 06/01/24 13:15:43 General Comments: 1233 EGD completed MSRN 1236 Colonoscopy started MSRN 06/02/24 Chart opened to review and send charges [facility]FA Case Attendance FT Entry 1 Entry 2 Entry 3 Case Attendee Evaristo GAMING, Nick Mcclure RN, Margarette Blackwell Role Performed Anesthesiologist of Wrecking Mechanic - Primary Scrub - Primary Record Time In 06/01/24 12:25:00 06/01/24 12:25:00 06/01/24 12:25:00 Time Out 06/01/24 13:09:00 06/01/24 13:09:00 06/01/24 13:09:00 Procedure EGD AND COLONOSCOPY(.) EGD AND COLONOSCOPY(.) EGD AND COLONOSCOPY(.) Comments Last Modified By: Vitaliy Mcclure RN, RN, Vitaliy Elise RN 06/01/24 13:16:18 06/01/24 13:16:18 06/01/24 13:16:18 Entry 4 Entry 5 Case Attendee Phil HSIEH, Jacqueline Bejarano MD, Glen Ta Role Performed Staff - Other Surgeon - Primary Time In 06/01/24 12:35:00 06/01/24 12:25:00 Time Out 06/01/24 13:09:00 06/01/24 13:09:00 Procedure EGD AND COLONOSCOPY(.) EGD AND COLONOSCOPY(.) Comments help in room Last Modified By: Kami RN, Vitaliy Mcclure RN, Vitaliy Holley 06/01/24 13:16:18 06/01/24 13:16:18 Perioperative Protocols FT Pre-Care Text: Implements protective measures prior to operative or invasive procedure, confirms identity before the operative or invasive procedure, verifies operative procedure, surgical site, and laterality Entry 1 Procedure(s) EGD AND COLONOSCOPY(.) Patient Identity Birthday, ID Band Verified (select at Check, Patient least 2): Participation Consents / H and P Anesthesia Consent, Operative Site N/A Verified H&P, Surgery/Procedure Marking Verified Consent Surgical Site No Laterality Verified n/a Verified Procedure Verified Yes Correct Patient Yes Position Verified Availability Equipment, Medication Prep Dry n/a Verified (If Applicable) PreOp Antibiotic No Time Out Nick Loera DO, Vitaliy Mcclure RN, Sarmini MD, Cheikh Parsons Kirstyn K Time Out Complete 06/01/24 12:27:00 Outcomes Met? Yes Last Modified By: Vitaliy Mcclure RN 06/01/24 12:29:50 Post-Care Text: The patient is free from signs and symptoms of injury caused by extraneous objects Allergy Information FT Pre-Care Text: Verifies allergies Entry 1 Allergies Reviewed? Yes Allergies Reviewed Self/Patient With Outcomes Met? Yes Last Modified By: Vitaliy Mcclure RN 06/01/24 12:27:29 Post-Care Text: The patient received appropriate medication(s) safely administered during the perioperative period Surgical Procedures FT Entry 1 Procedure Description Procedure EGD AND COLONOSCOPY Modifiers . Surgeon Description EGD with gastric biopsy and dilation of esophagus using 54F delcid dilator. Colonoscopy Primary Procedure Yes Primary Surgeon Darci BRYANT, Glen Ta Start 06/01/24 12:29:00 Stop 06/01/24 13:07:00 Anesthesia Type General Surgical Service Gastroenterology Wound Class 2 - Clean-Contaminated Last Modified By: Vitaliy Mcclure RN 06/01/24 13:08:13 General Case Data FT Pre-Care Text: Classifies surgical wound, implements aseptic technique, initiates traffic control Entry 1 Case Information OR ENDO 1 FT Case Level Level 2 Wound Class 2 - Clean-Contaminated Specialty Gastroenterology ASA Class 3 Preop Diagnosis Dysphagia, History of Postop Same As Preop No gastric bypass, Diverticular disease Postop Diagnosis EGD- Minimal gastritis. Outcomes Met? Yes Colonoscopy- Severe diverticulosis, Internal hemorrhoids Last Modified By: Vitaliy Mcclure RN 06/01/24 13:17:32 Post-Care Text: The patient is free from signs and symptoms of infection Skin Assessment (Pre Procedure) FT Pre-Care Text: Implements protective measures to prevent skin/ tissue injury due to thermal or mechanical sources Evaluates for signs and symptoms of physical injury to skin and tissue Entry 1 Skin Integrity Dry, Warm Skin Abnormality No Outcomes Met? Yes Last Modified By: Vitaliy Mcclure RN 06/01/24 12:30:23 Post-Care Text: The patient is free from signs and symptoms of injury caused by extraneous objects Patient Positioning FT Pre-Care Text: Identifies physical alterations that require additional precautions for procedure-specific positioning, verifies presence of prosthetics or corrective devices, positions the patient, evaluates the patient for signs and symptoms of injury as a result of positioning Entry 1 Procedure EGD AND COLONOSCOPY(.) Body Position Lateral, right side up Feet Uncrossed? Yes Left Arm Position Resting at Side Right Arm Position Resting at Side Left Leg Position Extended Right Leg Position Extended Positioning Device Safety Strap, Pillow Under Head Large Press Points Checked Yes By Vitaliy Mcclure RN Outcomes Met? Yes Last Modified By: Vitaliy Mcclure RN 06/01/24 12:30:29 Post-Care Text: The patient is free from signs and symptoms of injury related to positioning Patient Care Devices FT Pre-Care Text: Implements protective measures to prevent skin/ tissue injury due to thermal or mechanical sources Entry 1 Entry 2 Equipment Type ENDOSCOPY VIDEO SYSTEM MONITOR CHARGE SURGERY Equipment Number [id number] Equipment Setting Outcomes Met? Yes Yes Last Modified By: Vitaliy Mcclure RN, RN, Morgan E 06/01/24 12:31:27 06/01/24 12:31:27 Post-Care Text: The patient is free from signs and symptoms of injury caused by extraneous objects Transport To OR Pre-Care Text: Transports according to individual needs. Evaluates for signs and symptoms of skin and tissue injury as a result of transfer or transport Entry 1 Via Cart By Vitaliy Mcclure RN Safety Precautions Side Rails Up Outcomes Met? Yes Last Modified By: Vitaliy Mcclure RN 06/01/24 12:31:37 Post-Care Text: The patient is free from signs and symptoms of injury related to transfer/transport Departure From OR Pre-Care Text: Transports according to individual needs. Evaluates for signs and symptoms of skin and tissue injury as a result of transfer or transport. Entry 1 Via Cart Safety Precautions Safety Strap, Side Rails Up PostOp Destination PACU Transported By Vitaliy Mcclure RN Patient Status Stable Report Given Sharon Boyd RN To/Hand Off Communication Skin. Condition Intact, [place], Warm, & Dry Airway Maintenance Oxygen in Use? No Airway Device N/A Outcomes Met? Yes Last Modified By: Vitaliy Mcclure RN 06/01/24 13:15:48 Post-Care Text: The patient is free from signs and symptoms of injury related to transfer/transport General Comments: Report given to PACU nurse MSRN Medication Administration FT Pre-Care Text: Verifies allergies, administers prescribed medications and solutions, administers prescribed antibiotic therapy and immunizing agents as ordered, evaluates response to medications Administers prescribed medications and solutions Entry 1 Expiration Date Yes Outcomes Met? Yes Verified Last Modified By: Vitaliy Mcclure RN 06/01/24 12:32:41 Post-Care Text: The patient received appropriate medication(s) safely administered during the perioperative period For Mach[employer] please see scanned medication reconcilliation form for medications used at the field during the procedure. Cultures & Specimens FT Pre-Care Text: Manages specimen handling and disposition Manages culture specimen collection Entry 1 Cultures Ordered n/a Specimens Ordered No Frozen Section Times Outcomes Met? Yes Last Modified By: Vitaliy Mcclure RN 06/01/24 13:08:03 Post-Care Text: The patient is free from signs and symptoms of injury caused by extraneous objects The patient is free from signs and symptoms of infection Sign Out FT Entry 1 Before Patient Leaves OR Nurse verbally Yes Nurse verbally n/a confirms with the confirms with the team the name of team that the procedure(s) instrument, sponge, recorded and needle counts are correct (or N/A) Nurse verbally Yes Nurse verbally Yes confirms with the confirms with the team how the team whether there specimen is labeled are any equipment (including patient problems to be name), if applicable addressed Sign Out Complete 06/01/24 13:07:00 Last Modified By: Vitaliy Mcclure RN 06/01/24 13:16:17 Case Comments <None> Finalized By: Anna Reyes CST Document Signatures Signed By: Vitaliy Mcclure RN 06/01/24 13:17 Anna Reyes CST 06/02/24 08:36 MAIN OR PACU I RECORD Observed: 06/01/20 12:29 PM Status: F Source: [facility] Main OR PACU I Record PACU Phase I Document Type FT Summary Primary Physician: Glen Bejarano MD Finalized Date/Time: 06/01/24 13:51:48 Pt. Name: RENUKA GRAHAM /Sex: 1955 Female Med Rec #: [id number] Physician: Glen Bejarano MD Financial #: [id number] Pt. Type: O Room/Bed: / Admit/Disch: 06/01/24 10:48:01 - Institution: Case Times PACU I FT Pre-Care Text: Identifies barriers to communication and implements measures to provide psychological support Develops individualized plan of care, and ensures continuity of care Maintains patient's dignity and privacy, and maintains patient confidentiality Identifies and reports philosophical, cultural, and spiritual beliefs and values Identifies individual values and wishes concerning care Implements aseptic technique, and administers prescribed antibiotic therapy and immunizing agents as ordered Evaluates postoperative tissue perfusion Implements thermoregulation measures, and monitors body temperature Evaluates postoperative respiratory status Evaluates postoperative cardiac status Evaluates postoperative neurological status Assesses pain control, collaborated in initiating patient-controlled analgesia and implements alternative methods of pain control Verifies allergies, administers prescribed medications and solutions, evaluates response to medications Entry 1 In PACU I 06/01/24 13:10:00 Discharge from PACU 06/01/24 13:40:00 I Outcomes Met? Yes Last Modified By: Oliver RN, Sharon Goldman 06/01/24 13:51:33 Post-Care Text: The patient demonstrates knowledge of the expected response to the operative or invasive procedure The patient's care is consistent with the individualized perioperative plan of care The patient's right to privacy is maintained The patient's value system, lifestyle, ethnicity, and culture are considered, respected, and incorporated into the perioperative plan of care The patient participates in decisions affecting his or her perioperative plan of care The patient is free from signs and symptoms of infection The patient has wound/tissue perfusion consistent with or improved from baseline levels established preoperatively The patient is at or returning to normothermia at the conclusion of the immediate postoperative period The patient's respiratory function is consistent with or improved from baseline levels established preoperatively The patient's cardiovascular status is consistent with or improved from baseline levels established preoperatively The patient's cardiovascular status is consistent with or improved from baseline levels established preoperatively The patient demonstrates and/or reports adequate pain control throughout the perioperative period The patient received appropriate medication(s), safely administered during the perioperative period Acuity Level PACU I FT Entry 1 Start Time 06/01/24 13:10:00 Stop Time 06/01/24 13:40:00 Acuity Level Acuity Level I Last Modified By: Sharon Boyd RN 06/01/24 13:51:45 Finalized By: Sharon Boyd RN Document Signatures Signed By: Sharon Boyd RN 06/01/24 13:51 OUTPATIENT SURGERY DISCHARGE INSTRUCTION Observed: 06/01/2024 12:24 PM Status: F Source: [facility] Outpatient Surgery Discharge Instruction [place] [id number] Patient Discharge Instructions PERSON INFORMATION Name: RENUKA GRAHAM Date of : 1955 Current Date: 06/01/2024 12:24:29 PHYSICIANS Admitting Physician: Darci BRYANT, Glen Ta Discharge Diagnosis: Colon polyps; Dysphagia RENUKA GRAHAM has been given the following list of follow-up instructions, prescriptions, and patient education materials: PATIENT FOLLOW-UP INFORMATION Diet: Regular Discharge Activity: Resume normal activities in 24 hours Discharge Restrictions: No driving for 24 hrs Call Your Doctor For: Persistent or heavy bleeding IF UNABLE TO CONTACT YOUR PHYSICIAN AND YOU FEEL IT IS AN EMERGENCY, GO TO THE NEAREST EMERGENCY ROOM OR CALL 911 GLADYS Jackson SUSAN L, have received the attached patient education materials/instructions and have verbalized understanding: May we do a follow up call? Yes No I was present when discharge instructions were given Patient Signature Date Clinican/Nurse Signature Date Follow up: Pharmacy Information: You may receive a survey from [employer] asking you to rate your care experience. Your feedback is important and will help us understand what we do well and how we can improve the quality of care we provide to you, your loved ones and our community. It?s an honor to serve you. Thank you for choosing [facility] HERE ARE THE MEDICATION CHANGES THAT OCCURRED DURING YOUR HOSPITAL STAY Medications to Continue Taking That Have Changed Other Medications START: budesonide-formoterol (Symbicort 160/4.5 inhalation aerosol with adapter) 10 gm, 0 Refill(s), INHALE 2 PUFFS TWICE A DAY., Responsible Provider: YUAN HERNANDEZ START: gabapentin (gabapentin 300 mg Cap) 1 Capsules By Mouth 3 times a day. Oral. Medications to Continue with No Changes Other Medications acetaminophen-oxycodone (acetaminophen-oxycodone 325 mg-5 mg oral tablet) 1 Tablets By Mouth every 6 hours as needed as needed for pain. albuterol (albuterol HFA 90 mcg/inh MDI) Respiratory (Inhalation), 0 Refill(s). alendronate (alendronate 5 mg oral tablet) 1 By Mouth every day. osteoporosis. allopurinol By Mouth every day. bumetanide (bumetanide 1 mg Tab) 180 EA, 0 Refill(s), TAKE ONE TABLET BY MOUTH TWICE A DAY., Responsible Provider: MABEL HENDERSON cholecalciferol (Vitamin D3) Oral. cholecalciferol (Vitamin D3) By Mouth 2 times a day. cyclobenzaprine 10 Unknown, Oral. duloxetine (duloxetine 30 mg oral delayed release capsule) 1 Unknown, 0 Refill(s). ferrous sulfate 2,000 Milligram By Mouth 2 times a day. fluticasone nasal (fluticasone 0.05 mg/inh Nasal [place]) 2 Sprays Nasal Inhalation every day. hydrOXYzine 10 Milligram By Mouth 4 times a day as needed as needed for anxiety. magnesium gluconate (magnesium gluconate 500 mg oral tablet) 1 Tablets By Mouth every day. midodrine (midodrine 2.5 mg oral tablet) 2 times a day. 2.5 Unknown, oral, 0 Refill(s), Take 1 tablet (2.5 mg total) by mouth 2 (two) times a day.. ondansetron (ondansetron 4 mg Tab) Oral. pantoprazole 40 Milligram By Mouth 2 times a day. phentermine (phentermine 37.5 mg Tab) polycarbophil (Fiber Tabs) 1 tab By Mouth every day. sucralfate (Carafate 1 gram Tab) 1 Tablets By Mouth 4 times a day. Refills: 0. temazepam 30 Milligram By Mouth once a day (at bedtime). tizanidine 4 Milligram By Mouth 2 times a day as needed Muscle pain. topiramate (topiramate 25 mg Tab) 180 EA, 0 Refill(s), TAKE TWO TABLETS BY MOUTH ONCE DAILY., Responsible Provider: CONRAD ZHOU PATIENT EDUCATION INFORMATION Instructions: Medication Leaflets: INPATIENT PATIENT SUMMARY Observed: 05/19 12:24 PM Status: F Source: [facility] Inpatient Patient Summary [place] [id number] [facility] Clinical Discharge Instructions PERSON INFORMATION Name: RENUKA GRAHAM PHYSICIANS Admitting Physician: Glen Bejarano MD Attending Physician: Glen Bejarano MD PCP: CONRAD ZHOU DO Discharge Diagnosis: Colon polyps; Dysphagia Comment: PATIENT EDUCATION INFORMATION Instructions: Medication Leaflets: Follow up: MEDICATION LIST Medications to Continue Taking That Have Changed Other Medications START: budesonide-formoterol (Symbicort 160/4.5 inhalation aerosol with adapter) 10 gm, 0 Refill(s), INHALE 2 PUFFS TWICE A DAY., Responsible Provider: YUAN HERNANDEZ START: gabapentin (gabapentin 300 mg Cap) 1 Capsules By Mouth 3 times a day. Oral. Medications to Continue with No Changes Other Medications acetaminophen-oxycodone (acetaminophen-oxycodone 325 mg-5 mg oral tablet) 1 Tablets By Mouth every 6 hours as needed as needed for pain. albuterol (albuterol HFA 90 mcg/inh MDI) Respiratory (Inhalation), 0 Refill(s). alendronate (alendronate 5 mg oral tablet) 1 By Mouth every day. osteoporosis. allopurinol By Mouth every day. bumetanide (bumetanide 1 mg Tab) 180 EA, 0 Refill(s), TAKE ONE TABLET BY MOUTH TWICE A DAY., Responsible Provider: MABEL HENDERSON cholecalciferol (Vitamin D3) Oral. cholecalciferol (Vitamin D3) By Mouth 2 times a day. cyclobenzaprine 10 Unknown, Oral. duloxetine (duloxetine 30 mg oral delayed release capsule) 1 Unknown, 0 Refill(s). ferrous sulfate 2,000 Milligram By Mouth 2 times a day. fluticasone nasal (fluticasone 0.05 mg/inh Nasal [place]) 2 Sprays Nasal Inhalation every day. hydrOXYzine 10 Milligram By Mouth 4 times a day as needed as needed for anxiety. magnesium gluconate (magnesium gluconate 500 mg oral tablet) 1 Tablets By Mouth every day. midodrine (midodrine 2.5 mg oral tablet) 2 times a day. 2.5 Unknown, oral, 0 Refill(s), Take 1 tablet (2.5 mg total) by mouth 2 (two) times a day.. ondansetron (ondansetron 4 mg Tab) Oral. pantoprazole 40 Milligram By Mouth 2 times a day. phentermine (phentermine 37.5 mg Tab) polycarbophil (Fiber Tabs) 1 tab By Mouth every day. sucralfate (Carafate 1 gram Tab) 1 Tablets By Mouth 4 times a day. Refills: 0. temazepam 30 Milligram By Mouth once a day (at bedtime). tizanidine 4 Milligram By Mouth 2 times a day as needed Muscle pain. topiramate (topiramate 25 mg Tab) 180 EA, 0 Refill(s), TAKE TWO TABLETS BY MOUTH ONCE DAILY., Responsible Provider: ZHOU, CONRAD Comment: MAIN OR PREOPERATIVE RECORD Observed: 12:00 PM Status: F Source: [facility] Main OR Preoperative Record Holding Area Document Type FT Summary Primary Physician: Glen Bejarano MD Finalized Date/Time: 06/01/24 11:20:31 Pt. Name: RENUKA GRAHAM Shaun SinghB./Sex: 1955 Female Med Rec #: [id number] Physician: Glen Bejarano MD Financial #: [id number] Pt. Type: O Room/Bed: / Admit/Disch: 06/01/24 10:48:01 - Institution: Case Times Holding FT Pre-Care Text: Verifies consent for planned procedure, identifies individual values and wishes concerning care, includes family members in perioperative teaching Secures patient's records' belongings, and valuables, maintains patient's dignity and privacy, and maintains patient confidentiality Entry 1 In Holding 06/01/24 11:00:00 Outcomes Met? Yes Last Modified By: Vitaliy Mcclure RN 06/01/24 11:15:09 Post-Care Text: The patient participates in decisions affecting his or her perioperative plan of care The patient's right to privacy is maintained Surgery Checklist FT Entry 1 Patient Birthday, ID Band Procedure History and Physical, Identification: Check, Patient Verification: Surgical Consent, With Participation Patient NPO after Midnight: No Date/Time: 06/01/24 07:00:00 Results Reviewed blue-green liquid bowel Personal Items: Dentures, Glasses Comments: results Personal Items glasses, clothing, Limitations: none Comment: shoes, bilateral knee replacements, lower dentures Complaints of Pain: Yes Pain Comment: left knee pain from recent infection Operative Site n/a Marked By: n/a Marking: Location: n/a Availability Equipment Verified: Does Patient Smoke No Patient states Yes Comment - Adult son postop adult Supervision supervision available Case Cancelled in No Holding Area see comments below for reason Last Modified By: Vitaliy Mcclure RN 06/01/24 11:20:29 General Comments: pt finished bowel prep at 0700, per patient nothing to eat or drink since MSRN Finalized By: Vitaliy Mcclure RN Document Signatures Signed By: Vitaliy Mcclure RN 06/01/24 11:20 PROGRESS NOTE-PHYSICIAN Observed: 2023 11:27 AM Status: F Source: [facility] Progress Note-Physician Patient: RENUKA GRAHAM Age: 68 years Sex: Female : 1955 Associated Diagnoses: None Author: Nick Loera DO Preoperative Information Anesthesia history: Patient history: None. Family history+: None. Anesthesia results Informed consent: Signed by patient. Including risks, benefits, and alternatives related to the: Anesthetic plan, Postoperative pain management plan. Re-evaluation prior to induction: Nick Loera DO. Health Status Allergies: Allergic Reactions (Selected) Severity Not Documented Aspirin- Unknown. Latex- Unknown. Penicillins- Unknown. Sulfa drugs- Unknown. Tape- Itching., Allergies (5) Active Severity Reaction Latex UNKNOWN penicillins UNKNOWN sulfa drugs UNKNOWN aspirin Unknown Tape Itching Current medications: (Selected) Inpatient Medications Ordered Lactated Ringers IV Trang 1000 mL 1,000 mL: 1,000 mL, IV, 100 mL/hr, Routine, Start date 06/01/24 11:27:00 EDT, 10 hour(s), Total volume (mL): 1,000, 96 kg, 2.07, m2 Sodium Chloride 0.9% IV Trang 1000 mL 1,000 mL: 1,000 mL, IV, 20 mL/hr, Routine, Start date 06/01/24 7:23:00 EDT, 50 hour(s), Total volume (mL): 1,000 Prescriptions Prescribed Carafate 1 gram Tab: 1 gram = 1 tab(s), Oral, QID, # 120 tab(s), Refills(s) 0, Pharmacy: [facility] Documented Medications Documented Fiber Tabs: 1 tab, Oral, Daily, Refills(s) 0, Prophylaxis Symbicort 160/4.5 inhalation aerosol with adapter: Refill(s) 0, 10 gm, 0 Refill(s), INHALE 2 PUFFS TWICE A DAY Vitamin D3: Oral, BID, Refills(s) 0, Prophylaxis Vitamin D3: Oral, Refills(s) 0, Prophylaxis acetaminophen-oxycodone 325 mg-5 mg oral tablet: 1 tab(s), Oral, q6hr as needed for pain, Refill(s) 0 albuterol HFA 90 mcg/inh MDI: Refill(s) 0, Respiratory (Inhalation), 0 Refill(s) alendronate 5 mg oral tablet: 1, Oral, Daily, osteoporosis, Refills(s) 0, Other (see comment) allopurinol: Oral, Daily, Refills(s) 0, Gout pain bumetanide 1 mg Tab: 180 EA, 0 Refill(s), TAKE ONE TABLET BY MOUTH TWICE A DAY, Refills(s) 0 cyclobenzaprine: 10 Unknown, Oral, Refills(s) 0 duloxetine 30 mg oral delayed release capsule: 1 Unknown, 0 Refill(s), Refills(s) 0 ferrous sulfate: 2,000 mg, Oral, BID, Refills(s) 0, Prophylaxis fluticasone 0.05 mg/inh Nasal [place]: 2 spray(s), Nasal, Daily, Refill(s) 0, Allergy symptoms gabapentin 300 mg Cap: 300 mg = 1 cap(s), Oral, TID, Oral, Refills(s) 0, Neuropathy hydrOXYzine: 10 mg, Oral, QID, PRN as needed for anxiety, Refills(s) 0 magnesium gluconate 500 mg oral tablet: 500 mg = 1 tab(s), Oral, Daily, Refills(s) 0 midodrine 2.5 mg oral tablet: BID, 2.5 Unknown, oral, 0 Refill(s), Take 1 tablet (2.5 mg total) by mouth 2 (two) times a day., Refills(s) 0 ondansetron 4 mg Tab: Oral, Refills(s) 0, Nausea pantoprazole: 40 mg, Oral, BID, Refills(s) 0, Control of stomach acid phentermine 37.5 mg Tab: Refills(s) 0 temazepam: 30 mg, Oral, Once a day (at bedtime), Refills(s) 0, Sleep tizanidine: 4 mg, Oral, BID, PRN Muscle pain, Refills(s) 0 topiramate 25 mg Tab: 180 EA, 0 Refill(s), TAKE TWO TABLETS BY MOUTH ONCE DAILY, Refills(s) 0, Home Medications (24) Active acetaminophen-oxycodone 325 mg-5 mg oral tablet 1 tab(s), PRN, Oral, q6hr albuterol HFA 90 mcg/inh MDI alendronate 5 mg oral tablet 1, Oral, Daily allopurinol , Oral, Daily bumetanide 1 mg Tab Carafate 1 gram Tab 1 gram = 1 tab(s), Oral, QID cyclobenzaprine duloxetine 30 mg oral delayed release capsule ferrous sulfate 2,000 mg, Oral, BID Fiber Tabs 1 tab, Oral, Daily fluticasone 0.05 mg/inh Nasal [place] 2 spray(s), Nasal, Daily gabapentin 300 mg Cap 300 mg = 1 cap(s), Oral, TID hydrOXYzine 10 mg, PRN, Oral, QID magnesium gluconate 500 mg oral tablet 500 mg = 1 tab(s), Oral, Daily midodrine 2.5 mg oral tablet , BID ondansetron 4 mg Tab pantoprazole 40 mg, Oral, BID phentermine 37.5 mg Tab Symbicort 160/4.5 inhalation aerosol with adapter temazepam 30 mg, Oral, Once a day (at bedtime) tizanidine 4 mg, PRN, Oral, BID topiramate 25 mg Tab Vitamin D3 , Oral, BID Vitamin D3 , Medications (2) Active Scheduled: (0) Continuous: (2) Lactated Ringers 1,000 mL 1,000 mL, IV, 100 mL/hr Sodium Chloride 0.9% 1,000 mL 1,000 mL, IV, 20 mL/hr PRN: (0) Problem list: All Problems CHF (congestive heart failure) / SNOMED CT 48999927 / Confirmed COPD (chronic obstructive pulmonary disease) / SNOMED CT 15596161 / Confirmed Hypertension / SNOMED CT 1702599628 / Confirmed Kidney failure / SNOMED CT 42044756 / Confirmed, Active Problems (4) CHF (congestive heart failure) COPD (chronic obstructive pulmonary disease) Hypertension Kidney failure Histories Past Medical History: No active or resolved past medical history items have been selected or recorded. Family History: Patient was adopted. History is unknown. Procedure history: EGD (esophagogastroduodenoscopic) electrohydraulic lithotripsy of bezoar in stomach (9610729537) on 06/15/2019 at 63 Years. Colonoscopy (151094476) on 08/02/2018 at 63 Years. Appendicectomy (172513744). Tonsillectomy (041506463). Gastric bypass (5829346530). Both knees (18429038). Tendonitis of left ankle ([id number]). Caesarean section (05393627). Social History Social & Psychosocial Habits Alcohol 03/28/2024 Risk Assessment: Low Risk Substance Abuse 03/28/2024 Risk Assessment: Denies Substance Abuse Tobacco 03/28/2024 Risk Assessment: Denies Tobacco Use 03/28/2024 Tobacco Use: Former smoker, quit more Smokeless tobacco use: Never Type: Cigarettes . Physical Examination Vital Signs 06/01/2024 11:23 EDT Systolic Blood Pressure 108 mmHg Diastolic Blood Pressure 91 mmHg HI Blood Pressure Location Left arm 06/01/2024 11:11 EDT Temperature Temporal Artery 36.3 DegC Heart Rate Monitored 73 bpm Respiratory Rate Monitored 19 br/min Systolic Blood Pressure 125 mmHg Diastolic Blood Pressure 51 mmHg LOW Blood Pressure Location Left arm SpO2 98 % Vital Signs (last 24 hrs) Last Charted Temp Temporal 36.3 DegC (JUN 01 11:11) Heart Rate Monitored 73 bpm (JUN 01 11:11) Resp Rate 19 br/min (JUN 01 11:11) SBP 108 mmHg (JUN 01:) DBP H 91 mmHg (JUN 01 11:) Weight 96 kg (JUN 01 11:09) BMI 37.5 (JUN 01 11:09) Measurements from flowsheet : Measurements 06/01/2024 11:09 EDT Height/Length Measured 160 cm Height/Length Dosing 160.0 cm Weight Dosing 96.0 kg BSA Measured 2.07 m2 Body Mass Index Measured 37.5 kg/m2 Weight Measured 96 kg Airway: Mallampati classification: II (soft palate, fauces, uvula visible). Distance: Mentohyoid, Interincisive, Thyromental, Mentosternal, Adequate. HENT: Normocephalic. Respiratory: Lungs are clear to auscultation. Cardiovascular: Regular rhythm. Gastrointestinal: Soft. Review / Management Results review Plan [place] [employer] (ASA) physical status classification: Class III. Anesthetic Preoperative Plan: Anesthesia General. Result Comment: Electronical ly Signed By: Nick Loera DO.br\Date and Time Signed: 06/01/24 11:29 EDT BACTERIA SPEC BFLD CULT Observed: 2023 11:30 AM Status: F Source: [facility] Fluid Culture Status = F No growth at 3 days Gram Stain Result Status = F No Polymorphonuclear leukocytes This is an appended report. These results have been appended to a previously preliminary verified report.No Epithelial cells This is an appended report. These results have been appended to a previously preliminary verified report.No organisms seen This is an appended report. These results have been appended to a previously preliminary verified report. Performed By: #### [id number] ### # [facility] ([facility]) [facility] [address] [place] [id number] BACTERIA SPEC ANAEROBE CULT Observed: 05/25/2024 11:30 AM Status: F Source: [facility] Culture, Anaerobic Status = F No anaerobes grown after 4 days. Performed By: #### [id number] ### # [facility] ([facility] [address] [place] [address] 46784 CELL CNT PNL FLD Collected: 05/25/2024 11:30 AM Stat us: F Source: [facility] Order Comment: The reference range and other method performance specifications have not been established for this fluid specimen. The test result should be integrated into the clinical context for interpretation. TYPE CODE TESTS RESULT OUT OF RANGE REFERENCE UNITS LAB [id number] Fluid Neutrophils 76.0 % LAB [id number] Fluid Lymphocytes 3.0 % LAB [id number] Fluid Monocytes/Macro phages 9.0 % LAB [id number] Fluid Eosinophils 11.0 % LAB [id number] Fluid Basophils 1.0 % Performed By: #### [id number] # ### [facility] ([facility] [address] [facility] [address] [place] [address] MYCOBACTERIUM SPEC QL CULT Observed: 04/2024 11:30 AM Status: F Source: [facility] Culture AFB Status = F No growth at 8 weeks AFB Stain Status = F No acid fast bacilli seen Performed By: #### [id number] # ### [facility] ([facility]) LAB [address] [place] [address] FUNGUS SKIN CULT Observed: 05/25/2024 11:30 AM Status: F Source: [facility] Culture, Fungus Status = F No growth at 4 weeks Performed By: #### [id number] ### # [facility] [address] [place] [address] CONSENT FOR PROCEDURE/SURGERY Observed: 03/28/2024 7:11 AM Status: F Source: [facility] [id number]#1.00TIFF OUTSIDE COLONOSCOPY Observed: 03/04/2013 7:11 AM Status: F Source: [facility] [id number]#1.00TIFF PATHOLOGY NOTE Observed: 03/04/2013 7:11 AM Status: F Source: [facility] [id number]#1.00TIFF ALLERGIES DATE TYPE / CODE NAME / CODE REACTION SEVERITY SOURCE TIESHA(SNOMED CT) aspirin [id number] [facility] [id number](SNOMED CT) Latex Unknown [facility] [id number](SNOMED CT) Tape [id number] [facility] TIESHA(SNOMED CT) penicillins Unknown [facility] [id number](SNOMED CT) sulfa drugs Unknown [facility] [id number](SNOMED CT) Unknown Unknown [facility] ENCOUNTERS ADMIT/DISCHARGE ACCOUNT NUMBER ADMITTING ENCOUNTER CLASS LOCATION SOURCE 04/11/2025/04/11/20 [id number] Conrad [facility] 03/17/2025/03/17/20 [id number] Ambulatory Building:NOM S NB ENT [facility] EPIC 03/14/2025/03/14/20 [id number] Ambulatory Building:NOM S NB AUD [facility] EP[facility] 01/18/2025/01/19/20 25 [id number] Ambulatory Building:CIE NT [facility] EPIC 01/05/2025/01/07/20 25 [id number] ESTRELLA ANGELO Ambulatory Building:[facility] Room: 0333Bed: 01 [facility] 11/14/2024/11/14/19 25 [id number] Ambulatory Building:[facility] 06/01/2024/06/01/20 24 [id number] Glen Bejarano Ambulatory FTBuilding :[facility] 06/07/2019 [id number] Ambulatory CD:[id number] 3Building:CD :[id number] [facility] PAYERS ENCOUNTER GUARANTOR PAYER SUBSCRIBER SOURCE 03/17/2025 RENUKA FLORESB: [place] [address]Hup: () Primary Insurance:[facility] MEDICARE ADVANTAGEPolicy Number: [id number] Date:2021-11-19 RENUKA FLORESB: [id number] [place] [address] [facility] EPIC 03/17/2025 Secondary Insurance[place] Number: [id number] Date:2017-10-19 RENUKA FLORESB: [id number] [place] [id number] [facility] EPIC 03/14/2025 RENUKA FLORESB: [place] [address]Gku: () Primary Insurance:[employer] MEDICARE ADVANTAGEPolicy Number: [id number] Date:2021-11-19 RENUKA FLORESB: [id number] [place] [address] [facility] EPIC 03/14/2025 Secondary Insurance:[place] Number: [id number] Date:2017-10-19 RENUKA FLORESB: [id number] [place] [address] [facility] EPIC 01/18/2025 RENUKA FLORESB: [place] [address]Wil: (HP) Primary Insurance:AETNA MEDICARE ADVANTAGEPolicy Number: [id number] Date:2021-11-19 RENUKA Dunn SANDRAB: [id number] [place] [address] [facility] 01/18/2025 Secondary Insurance:[place]Policy Number: [id number] Date:2017-10-19 RENUKA Shaun FLORESB: [id number] [place] [address] [facility] 01/05/2025 RENUKA Shaun FLORESB: [place], [place] [address]Gfb: (HP) Primary Insurance:AETNA MEDICAREPolicy Number: [id number] Date:2021-11-19 RENUKA FLORESB: [id number] [address]Tue: (HP) [facility] 01/05/2025 Secondary Insurance:MED[place] Number: [id number] Date:2023-12-23[address], [place] [address]SI: RENUKA Shaun FLORESB: [id number] [place], [place] [address]Lcd: (HP) [facility] 06/01/2024 RENUKA FLORESB: [facility]: (HP) Primary Insurance:AETNAPolicy Number: [id number] Date:[id number]NHEST[address]A [address] [address]HE: RENUKA MCNEAL [facility] 06/01/2024 Secondary Insurance:MedicaidPoli cy Number: [id number] Date:[id number], [place] [address]NC: 832 RENUKA MCNEAL [facility]
--- OUTSIDE RECORDS SUMMARY | 2025-04-12 20:33 | XMS_ITS | Continuity of Care Document ---
Author Organization [facility] Address [address] [place] [address] Phone Care Team Providers Care Installation And Repair Technician Name Role Phone Conrad Sosa DO Attending Provider Care Teams Patient Care Team Team Status: Inactive Member Role Status Dates Conrad Sosa DO Attending Provider Active Start: April 11, 2025 End: April 11, 2025 Chief Complaint and Reason for Visit Chief Complaint Admit Date Unknown April 11, 2025 12:0 6pm Allergies, Adverse Reactions, Alerts Allergen Type Severity Reaction Last Updated Verified Status aspirin Allergy Unknown Unknown Reactio n, hives October 27, 2024 1:17pm Yes Active duloxetine Allergy Unknown Unknown Reaction October 27, 2024 1:17pm Yes Active furosemide Allergy Unknown Unknown Reaction October 27, 2024 1:17pm Yes Active nabumetone Allergy Unknown Unknown Reaction October 27, 2024 1:17pm Yes Active penicillin G Allergy Unknown hives October 27, 2024 1:17pm Yes Active semaglutide Allergy Unknown dizziness, ligh t headed, nausea October 27, 2024 1:17pm Yes Active latex Allergy Unknown Rash October 27, 2024 1:17pm Yes Active Sulfa (Sulfonamide Antibiotics) Allergy Unknown Hives October 27, 2024 1:17pm Yes Active ADHESIVES AND TAPES Allergy Unknown rash December 29, 2023 8:56am No Active Social History Smoking Status Status Start Date End Date Date of Observa tion Ex-smoker (finding) May 272021 8:46pm Observation Status Observation Response Date of Response Legal Sex Female (finding) Sex Assigned At Female July Family History Relationship Condition Age at Onset Recorded Date/T claire Not Specified Family history not k nown due to adoption Unknown son Hypertension Unknown Problems Active Problems Medical Problem Onset Date Status Urinary tract infection Unknown Active Low back pain Unknown Active Sciatica Unknown Active Cellulitis Unknown Active Acute renal insufficiency Unknown Active Cramps, muscle, general Unknown Active Abdominal infection Unknown Active Thrombophlebitis of left leg Unknown Act junior Thrombophlebitis Unknown Active Viral syndrome Unknown Active Iron deficiency anemia Unknown Active Recurrent acute deep vein thrombosis (DVT) of ri ght lower extremity Unknown Active Bronchitis Unknown Active Asthma Unknown Active Inactive/Resolved Problems Medical Problem Onset Date Status Esophageal reflux Unknown Resolved Allergic rhinitis Unknown Resolved Medications Medication Status Dose Units Route Directions Qty Days St art Date Stop Date End Date Instructions Adherence Cephalexin 500 mg capsule Discont inued 500 MG PO Q6H 28 7 December 22, 2020 1:00am April 29, 2021 10:35 pm Cephalexin 500 mg capsule Discont inued 500 MG PO Four times daily 40 December 22, 2020 1:00am April 29, 2021 10:35 pm Fluconazole 100 mg Tablet Discont inued 100 MG PO Daily June 05, 2021 12:00a m April 16, 2022 1:52p m as needed Ondansetron 4 mg Tablet,Disi ntegrating Active 4 MG PO Daily June 05, 2021 12:00a m Unknown Apixaban (Eliquis) 5 mg tablet Discont inued 5 MG PO Twice daily June 05, 2021 10:13a m Septe mber 2020 2:30a m Gabapentin 300 mg Tablet Discont inued 300 MG PO Three times daily June 11, 2021 12:00a m Augus t 2020 2:21p m Clopidogrel 75 mg Tablet Discont inued 75 MG PO Daily 90 90 Novemb er 2020 1:00am Febru brittney 2021 12:56 pm Clopidogrel 75 mg Tablet Discont inued 75 MG PO Daily 90 90 Februa ry 2021 12:56p m February 28, 2022 12:59 pm Clopidogrel 75 mg Tablet Discont inued 75 MG PO Daily 30 30 February 28, 2022 12:59p m 2024 1:34p m Vit-Iron Fum-Folic Ac (Prena-Tab) 65 mg iron- 1 mg Tablet Active 1 TAB PO Daily April 16, 2022 12:00a m Unknown Magnesium 200 mg Tablet Active 200 MG PO Daily April 16, 2022 12:00a m Unknown Baclofen 10 mg tablet Active 10 MG PO Twice daily January 25, 2022 12:00a m Unknown Lidocaine 5 % adhesive patch,medic ated Discont inued 1 PATCH TOPICA L Daily January 25, 2022 12:00a m April 16, 2022 1:53p m leave on most painful area for up to 12 hrs Nitrofurant oin Monohyd/M-C ryst (Macrobid) 100 mg capsule Discont inued 100 MG PO Twice daily 14 May 27, 2022 12:00a m 2024 1:18p m must administer with a meal/food Phenazopyri dine (Azo Urinary Pain Relief) 95 mg tablet Discont inued 95 MG PO Three times daily as needed for pain May 27, 2022 12:00a m 2024 1:19p m Alendronate 70 mg Tablet Active 70 MG PO every week May 06, 2019 12:00a m Unknown Allopurinol 100 mg Tablet Active 200 MG PO Daily May 06, 2019 12:00a m Unknown Oxycodone-A cetaminophe n 5-325 mg Tablet Discont inued 1 - 2 TAB PO Daily as needed for Pain May 06, 2019 12:00a m December 18, 2021 3:42p m Temazepam 30 mg Capsule Active 30 MG PO Daily at bedtime as needed for Insomnia May 06, 2019 12:00a m Unknown Pantoprazol e 40 mg Tablet,Germaine yed Release (Dr/Ec) Active 40 MG PO Twice daily May 06, 2019 12:00a m Unknown Bumetanide 0.5 mg Tablet Discont inued 0.5 MG PO Twice daily May 06, 2019 12:00a m December 29, 2023 10:15 am Hydroxyzine Hcl 10 mg Tablet Discont inued 10 MG PO Three times daily as needed for Itching May 06, 2019 12:00a m December 29, 2023 9:20a m Lisinopril 40 mg Tablet Discont inued 40 MG PO Daily May 06, 2019 12:00a m April 29, 2021 10:36 pm Tizanidine 4 mg Capsule Discont inued 4 MG PO Q12H as needed for Muscle Spasm May 06, 2019 12:00a m January 25, 2022 8:56p m 2 tablets as needed orally twice a day Cholecalcif kathrin (Vitamin D3) (Vitamin D3) 2,000 unit Capsule Discont inued 2000 UNIT PO Daily May 06, 2019 12:00a m April 16, 2022 1:50p m Hydroxyzine Hcl 10 mg tablet Active 10 MG PO Three times daily as needed for Itching December 29, 2023 9:18am 1-2 tablets every 8 hours itching Unknown Ferrous Sulfate (Iron) 325 mg (65 mg iron) Tablet Active 325 MG PO Daily May 09, 2019 12:00a m she states as needed Unknown Albuterol Sulfate 90 mcg/actuati on Hfa Aerosol Inhaler Active 2 PUFF INHALA TION EVERY 4-6 HOURS as needed for Shortness Of Breath May 09, 2019 12:00a m Unknown Budesonide- Formoterol (Symbicort) 160-4.5 mcg/actuati on Hfa Aerosol Inhaler Discont inued 2 PUFF INHALA TION Twice daily May 09, 2019 12:00a m January 05, 2024 2:29p m Gabapentin 300 mg capsule Active 300 MG PO Three times daily April 29, 2021 12:00a m 2 capsules orally tid Unknown Spironolact one 50 mg tablet Discont inued 25 MG PO Daily April 29, 2021 12:00a m Novem amita 2020 3:22p m Midodrine 2.5 mg tablet Active 2.5 MG PO Twice daily April 29, 2021 12:00a m Unknown Apixaban (Eliquis) 5 mg tablet Discont inued 0 .ROUTE .COMPLEX 74 April 30, 2021 12:00a m Augus t 2020 10:13 am 10 mg po BID x 1 week, then 5 mg po BID Oxycodone-A cetaminophe n (Percocet) 5-325 mg tablet Discont inued 1 TAB PO Q6H as needed for pain 10 3 2020December 18, 2021 3:42p m Apixaban (Eliquis) 5 mg tablet Discont inued 5 MG PO Twice daily 60 Sept2020 2:30am Novem 2020 3:21p m Doxycycline Hyclate 100 mg tablet Discont inued 100 MG PO Twice daily 20 February 26, 2022 12:00a m April 16, 2022 1:50p m Albuterol Sulfate 2.5 mg /3 mL (0.083 %) solution for nebulizatio n Active 2.5 MG INHALA TION Four times daily December 29, 2023 12:00a m FreeTextSiml Inhalation 4 times a day; Note: Source Status: Taking; Provider: Agueda Valera ( ) Unknown Diazepam 5 mg tablet Discont inued 5 MG PO Daily December 29, 2023 12:00a m 2024 1:35p m FreeTextSi tablet as needed Orally Once a day; Note: Source Status: Taking; Provider: Agueda Valera ( ) Duloxetine 30 mg capsule,del ayed release(/ EC) Discont inued 30 MG PO Daily December 29, 2023 12:00a m January 05, 2024 2:27p m FreeTextSi capsule Orally Once a day; Note: Source Status: Taking; Provider: Agueda Valera ( ) Fluticasone Propionate (Flonase Allergy Relief) 50 mcg/actuati on spray,suspe nsion Active INTRAN OUSMANE December 29, 2023 12:00a m FreeTextSi-2 spray in each nostril Nasally Once a day; Note: Source Status: Taking; Refills: 11; Provider: Agueda Weiner Fluticasone Propion-Lito meterol 232-14 mcg/actuati on aerosol powdr breath activated Discont inued 1 PUFF INHALA TION Three times daily December 29, 2023 12:00a m 2024 1:35p m FreeTextSi puff Inhalation Twice a day; Note: Source Status: Taking; Provider: Agueda Valera ( ) Tirzepatide 7.5 mg/0.5 mL pen injector Active MG SUBCUT December 29, 2023 12:00a m FreeTextSi injector Subcutaneous weekly; Note: Source Status: Taking; Refills: 1; Qty: 2 Milliliter; Provider: Maya Dunn Unknown Oxygen unit Active 0 .Route December 29, 2023 12:00a m 2 liters DME [employer] Oxycodone-A cetaminophe n 5-325 mg tablet Active 1 TAB PO Every 6 hours December 29, 2023 12:00a m FreeTextSi tablet as needed Orally every 6 hrs; Note: Source Status: Taking; Provider: Agueda Valera ( ) Unknown Pregabalin 100 mg capsule Active 100 MG PO Daily December 29, 2023 12:00a m FreeTextSi capsule Orally Once a day; Note: Source Status: Taking; Provider: Agueda Valera ( ) Unknown Tizanidine 4 mg tablet Active 4 MG PO Twice daily December 29, 2023 12:00a m FreeTextSi tablet as needed Orally TWICE A DAY NEEDED; Note: Source Status: Taking; Provider: Agueda Valera ( ) Unknown Topiramate 25 mg tablet Active 25 MG PO Daily December 29, 2023 12:00a m FreeTextSig: TAKE TWO TABLETS BY MOUTH DAILY IN LATE AFTERNOON FOR 30 DAYS; Note: Source Status: Takingon hold; Refills: 1; Qty: 60 Each; Provider: Maya Dunn Unknown Valacyclovi r (Valtrex) 1 gram tablet Active 1000 MG PO Daily December 29, 2023 12:00a m FreeTextSi tablet Orally Once a day; Note: Source Status: Taking; Provider: Agueda Valera ( ) Unknown Cyanocobala min (Vitamin B-12) 500 mcg tablet Active 1 TAB PO Daily December 29, 2023 12:00a m FreeTextSi tablet Orally Once a day; Note: Source Status: Taking; Provider: Agueda Valera ( ) Unknown Cholecalcif kathrin (Vitamin D3) (Vitamin D3) 25 mcg (1,000 unit) capsule Active 25 MCG PO Daily December 29, 2023 12:00a m Unknown Cefdinir 300 mg capsule Discont inued MG PO Daily January 05, 2024 12:00a m 2024 1:33p m FreeTextSig: as directed Orally daily; Note: Source Status: Takingon for 6 months; Provider: Agueda Valera ( ) Fluticasone Propion-Lito meterol (Advair Diskus) 250-50 mcg/dose blister with device Discont inued 1 INH INHALA TION Twice daily 60 30 January 05, 2024 12:00a m 2024 1:35p m Methylpredn isolone (Medrol (Gamaliel)) 4 mg tablets,dos e pack Active 0 PO per package directions 2024 1:00am PO PER PKG DIR Unknown Benzonatate 100 mg capsule Active 100 MG PO Three times daily as needed for cough 2024 1:00am Unknown Immunizations Immunization Event Date Not Given Reason Dose Number Pipe Line Gauger Lot Number Vaccine Information Statement (VIS) Detail Administration Location COVID-19 mRNA, Comirnaty (Pfizer) January 02, 2021 COVID-19 mRNA, Comirnaty (DashLuxe) January 24, 2021 Pneumococcal Conjugate Vaccine, 13 valent July 19, 2018 Pneumococcal Polysacc. Vaccine, 23 valent December 18, 2011 Pneumococcal Polysacc. Vaccine, 23 valent July 19, 2019 Pneumococcal Polysacc. Vaccine, 23 valent August 19, 2020 Quadrivalent Influenza August 20, 2017 Procedures Procedure Date Performed Status Urine Culture April 11, 2025 active Advance Directives Advance Directive Response Recorded Date/ Time Advance Directives Yes January 04 2:03pm Insurance Providers Guarantor Renuka Padron Address [address] [place] [address] Contact Info. Home Phone: Payer Policy Id Subscriber's Name Subscriber Id Effective Date Expiration Date Medicaid [id number] Renuka Padron [id number] Medicare [id number] Renuka Padron [id number] Aetna [facility] [id number] Renuka Shaun Padron [id number] [facility] Dual Compl [id number] Renuka Shaun Padron [id number] Encounters Encounter Location(s) Arrival/Admit Date Discharge/Depart Date Provider(s) Departed Referred -[facility] April 11, 2025 12:06pm April 11, 2025 12:07pm Conrad Sosa , Plan of Treatment Future Tests Future scheduled test information is unavailable Pending Tests Test Name Ordered Date Scheduled Date Urine Culture April 11, 2025 12:06pm Future Visits Future appointment information is unavailable Referrals to Other Providers Referral information is unavailable Future Procedures Procedure Name Ordered Date Scheduled Date Urine Culture April 12, 2025 1:14pm March 12:06pm Future Medications Future medication information is unavailable Patient Instructions Patient instructions are unavailable
--- OUTSIDE RECORDS SUMMARY | 2025-04-25 10:52 | XMS_ITS | Encounter Summary ---
Author Organization [facility] Address [address] [place] [address] Care Team Providers Care Personal Shopper Name Role Phone Conrad Sosa DO Primary Care Provider + [phone] Italo Ann MD Unavailable Italo Ann MD Unavailable [phone] Source Comments In the event this information is protected by the Federal Confidentiality of Alcohol and Drug AbusePatient Records regulations: The Federal rules restrict any use of the information to criminally investigate or prosecute any alcohol or drug abuse patient.[facility] Encounter Details Date Type Department Care Team (Late st Contact Info) Description 11/14/2019 Patient Msg Cardiology [address] [phone] Italo Ann MD [address] [place] [address] RE: Appointment Cancellation Request Social History Tobacco [...] on filedocumented in this encounter Care Teams Personal Shopper Relationship Specialty Start Date End Date Conrad Sosa DO PCP - General Family Medicine 06/25/17 Italo Ann MD [address] [facility] [address] [place] [address] Primary Staff Physician Cardiology 01/04/1901/04 Italo Ann MD [address] [facility] [address] [place] [address] Primary Staff Physician Cardiology 01/04/19 documented as of this encounter
--- OUTSIDE RECORDS SUMMARY | 2025-04-25 10:52 | XMS_ITS | Clinical Summary ---
Author Organization [facility] Address [address] [place] [address] Phone Care Team Providers Care Diesel Trailer Mechanic Name Role Phone Conrad Sosa DO Primary [...] Diabetes Screening 03/19/2024 03/19/2023, 09/19/2022 COVID-19 Vaccine (1 - season) 2024 Influenza Vaccine (#1) 2025 2, 08/19/2020, 08/06/2020, Additional history exists Pneumococcal Vaccine Completed 08/19/2020, 08/02/2019, 07/19/2019, Additional history exists HIB Vaccines Aged Out No longer eligi ble based on patient's age to complete this topic HPV Vaccines (No Doses Required) Completed Hepatitis A Vaccines Aged Out No long [...] Health Maintenance Results * Echocardiogram (02/08/2020) 02/08/2020 [facility] RADIOLOGY SYSTEM - 02/08/2020 12:00 AM EDT [address], [address] [place] [address] TRANSTHORACIC ECHOCARDIOGRAM REPORT Patient Name: VILMA GRAHAM Reading Physician: [id number] Castanon MD Study Date: 02/08/2020 Referring Physician: Martell Castanon MD MRN/PID: [id number] PCP: Conrad Sosa Accession/Order#: [id number] Department Location: [facility] Date of : 1955 Fellow: Gender: F Nurse: Admit Date: Investment Manager: Jennifer Ceballos RDCS, RVT Height: 160.02 cm CC Report to: Weight: 111.59 kg Study Type: Echocardiogram BSA: 2.11 m2 Blood Pressure: 142 /80 mmHg Diagnosis/ICD: R06.02-Shortness of breath Indication: Right CHF, COPD, Diabetes, HTN, Edema, Forme Smoker, JEREMY, CKD-Stage IV, Morbid Obesity-s/p Gastric Bypass Procedure/CPT: Echo Complete w Full [id number] Study Detail: The following Echo studies were [...] mmHg PIEDV: 1.65 m/s PADP: 15.9 mmHg [id number] Luis Castanon MD Electronically signed on 02/08/2020 at 4:38:48 PM Final Procedure Note Conversion, Syngo - 11/21/2022 [facility] [address] [place] [address], [address], [place] [address] TRANSTHORACIC ECHOCARDIOGRAM REPORT Patient Name: VILMA GRAHAM Reading Physician: [id number] Luis Croft Study Date: 02/08/2020 Referring Physician: [id number] Luis Croft MRN/PID: [id number] PCP: Conrad Sosa Accession/Order#: [id number] Department Location: [facility] Date of : 1955 Fellow: Gender: F Nurse: Admit Date: Investment Manager: Jennifer Ceballos RD,T Height: 160.02 cm CC Report to: Weight: 111.59 kg Study Type: Echocardiogram BSA: 2.11 m2 Blood Pressure: 142 /80 mmHg Diagnosis/ICD: R06.02-Shortness of breath Indication: Right CHF, COPD, Diabetes, HTN, Edema, Forme Smoker, JEREMY, CKD-Stage IV, Morbid Obesity-s/p Gastric Bypass Procedure/CPT: Echo Complete w Full [id number] Study Detail: The following Echo studies were [...] mmHg PIEDV: 1.65 m/s PADP: 15.9 mmHg [id number] Luis Castanon MD Electronically signed on 02/08/2020 at 4:38:48 PM Final us Syngo Conversion CV ECHO PROCEDURES Final Result [facility] [place] [address], [place] from Last 3 Months or Most Recently Relevant to Health Maintenance Insurance MEDICAID T MEDICARE ASSURE MEDICAID AET MEDICARE ASSURE Care Teams Diesel Trailer Mechanic Relationship Specialty Start Date End Date Conrad Sosa DO [address] [place] [address] PCP - General 09/25/22
--- OUTSIDE RECORDS SUMMARY | 2025-04-25 10:52 | XMS_ITS | Clinical Summary ---
Author Organization [facility] Address [address] [place] [address] Care Team Providers Care Aerophysics Engineer Name Role Phone Unavailable Primary Care Provider [...] in the evening. Active Cholecalciferol 1.25 MG (90241 UT) TABS Take 1 capsule by mouth [...] = 0.6 oz pur e alcohol) Ocassionally [facility] Utilities Answer Date Recorded In the past 12 months has th e [employer], gas, oil, or water company threatened to [...] any time in the past 12 m [facility], were you homeless or living in a longterm (including now)? No 01/05/2025 Food Insecurity Answer [...] 01/02/2021 Annual Wellness Visit (Medicare Advantage) 10/19/2024 Flu vaccine (#1) 05/19/2025 08/10/2024, 05/2023, 08/07/2022, Additional history exists GFR test (Diabetes, CKD 3-4, OR last GFR 15-59) 01/05/2026 01/05/2025 Pneumococcal 50+ years Vaccine Completed 08/19/2020, 08/02/2019, 07/19/2019, Additional history exists Hepatitis A vaccine Aged [...] - 145 mmol/L 01/05/2025 3:30 PM EDT [facility] Potassium 4.1 3.7 - 5.3 mmol/L 01/05/2025 3:30 PM EDT [facility] Chloride 109(H) 98 - 107 mmol/L 01/05/2025 3:30 PM EDT [facility] CO2 23 20 - 31 mmol/L 01/05/2025 3:30 PM EDT [facility] Anion Gap 9 9 - 16 mmol/L 01/05/2025 3:30 PM EDT [facility] Glucose 166(H) 74 - 99 mg/dL 01/05/2025 3:30 PM EDT [facility] BUN 19 8 - 23 mg/dL 01/05/2025 3:30 PM EDT [facility] Creatinine 1.0(H) 0.50 - 0.90 mg/dL 01/05/2025 3:30 PM EDT [facility] Est, Gloesme Filt Rate 60(L) >60 mL/min/1.7 3m2 01/05/2025 3:30 PM EDT [facility] Comment: These results are not [...] 9 - 20 01/05/2025 3:30 PM EDT [facility] Calcium 8.7 8.6 - 10.4 mg/dL 01/05/2025 3:30 PM EDT [facility] Blood BLOOD SPECIMEN / Unknown 01/05/2025 3:30 PM EDT 01/05/2025 3:33 PM EDT Danika Prince STAINED GLASS GLAZIER HELPER - GRAPHIC DESIGN SPECIALIST CHEMISTRY ORD ERABLES Final Result [facility] [address] [id number], [facility] [phone] from Last 3 Months or Most Recently Relevant to Health Maintenance Insurance AETNA MEDICARE MEDICAID [place] Advance Directives * Full Code (Latest Code Status on File) Date Activated Date Inactivated Comments 01/05/2025 6:23 AM 01/06/2025 2:44 PM
--- OUTSIDE RECORDS SUMMARY | 2025-04-25 10:52 | XMS_ITS | Encounter Summary ---
Author Organization [facility] Address [address] [place] [address] Care Team Providers Care Humidifier Maintenance Worker Name Role Phone Conrad Sosa DO Primary Care Provider [phone] Italo Ann MD Unavailable [phone] Source Comments In the event this information is protected by the Federal Confidentiality of Alcohol and Drug AbusePatient Records regulations: The Federal rules restrict any use of the information to criminally investigate or prosecute any alcohol or drug abuse patient.[facility] Encounter Details Date Type Department Care Team (Late st Contact Info) Description 2020 [place] [address] Provider, [facility] Medicare Coverage of Physical Exams [...] on filedocumented in this encounter Care Teams Humidifier Maintenance Worker Relationship Specialty Start Date End Date Conrad Sosa DO PCP - General Family Medicine 06/25/17 Italo Ann MD [address] [address] Primary Staff Physician Cardiology 01/04/19 documented as of this encounter
--- OUTSIDE RECORDS SUMMARY | 2025-04-25 10:52 | XMS_ITS | Clinical Summary ---
Author Organization [facility] Address [address] [place], [place] [address] Care Team Providers Care Electrical Engineering Professor Name Role Phone Conrad Sosa Primary Care Provider [phone] Italo Ann MD Unavailable [phone] Allergies Active Allergy Reactions Criticality Noted Date [...] N ot on file 09/25/2020 Data from: https://www.neighborhoodatlas.medicine.[facility].edu/. Last address used for calculation Not on [...] 2024 Advance Directive Discussion 10/19/2024 Influenza Vaccine (#1) 2025 07/19/2018, 2016 RSV Vaccine (1 - 1-dose 75+ series) 2030 Insurance MEDICARE MEDICAID [place] Care Teams Electrical Engineering Professor Relationship Specialty Start Date End Date Conrad Sosa DO PCP - General Family Medicine 06/25/17 Italo Ann MD [address] [address] Primary Staff Physician Cardiology 01/04/19
--- OUTSIDE RECORDS SUMMARY | 2025-04-25 10:52 | XMS_ITS | Clinical Summary ---
Author Organization [facility] Address [address] [place] [address] Care Team Providers Care Bath Steward Name Role Phone Unavailable Primary Care Provider [...] Team (Late st Contact Info) Description 04/28/2025 11:40 AM EDT Appointment Imaging Outpatient Care [address] [place], [place] [id number] 04/28/2025 11:50 AM EDT Appointment Imaging Outpatient Care [address] [place] [address] 04/28/2025 12:00 PM EDT Office Visit Sports Medicine Outpatient Care [address] [place], [place] [address] Nick Adam MD [address] [place] [address] Health Maintenance Due Date Last Done Comments DEXA SCAN DISCUSSION 1955 HEPATITIS C VIRUS SCREENING 1955 TETANUS 1955 TDAP (ADULT) 1974 CERVICAL CANCER SCREENING DISCUSSION 1976 LIPID SCREENING 1995 MAMMOGRAM SCREENING DISCUSSION 1995 COLORECTAL CANCER SCREENING DISCUSSION 2000 ZOSTER (SHINGLES) VACCINE (1 of 2) 2005 COVID-19 VACCINE ( season) 2024 INFLUENZA VACCINE (#1) 2025 2, 08/19/2020, 08/06/2020, Additional history exists RSV VACCINE (1 - 1-dose 75+ series) 2030 PNEUMOCOCCAL VACCINE SERIES Completed 10/2019, 08/02/2019, 07/19/2019, Additional history exists HEP B VACCINE Aged Out No longer brenda bright based on patient's age to complete this topic Insurance MEDICARE AETNA HMO MEDICAID
== END 2025-04-25 10:51 | disposition home or self-care (01) ==
LOC: US 10:51
PROVIDERS: PCP Family Medicine; Visit Provider Family Medicine
DX: R42 Dizziness and giddiness (principal); R09.89 Other specified symptoms and signs involving the circulatory and respiratory systems
CPT/HCPCS: 93880

== ENCOUNTER 2025-05-18 10:25 | Outpatient (OUT) | payer MEDICARE, MEDICAID, SELFPAY ==
--- OUTSIDE RECORDS SUMMARY | 2025-05-05 06:53 | XMS_ITS ---
Author Organization [facility] [place] Address [address] [place] [address] Care Team Providers Care Bloom Conveyor Operator Name Role Phone Conrad Sosa Primary Care Provider REASON FOR VISIT us results Encounters Encounter Location Date Provider Diagnosis [facility] [address] [place] [address] 05/05/2025 Conrad Sosa Plan Of Treatment Next Appt Details Provider Name:Conrad batres, 05/19/2025 11:30:00 AM, [address] [place], [address], Progress Notes * Doris GRAHAMOB:1955 ( 69 yo F)Acc No.[id number]:05/05/2025 Patient: Renuka FRENCH :1955 A ge:69 Y S ex:Female Address:[address] [place] [address] * true * Date: Generated for Ayaan batres/Faleydig/eTransmitting on: 0 05/18/2025 10:28 AM EDT
--- OUTSIDE RECORDS SUMMARY | 2025-05-11 11:48 | XMS_ITS ---
Author Organization [facility] in [place] Address [address] [place] [address] Care Team Providers Care Sword Swallower Name Role Phone Conrad Sosa Primary Care Provider [phone] REASON FOR VISIT lab results Encounters Encounter Location Date Provider Diagnosis [facility] [address] [place] [address] 05/11/2025 Conrad Sosa Plan Of Treatment Next Appt Details Provider Name:Conrad batres, 05/19/2025 11:30:00 AM, [address] [place], [address], Progress Notes * Doris GRAHAMOB:1955 ( 69 yo F)Acc No.[id number]:05/11/2025 Patient: Renuka FRENCH :1955 A ge:69 Y S ex:Female Address:[address] [place] [address] * true * Date: Generated for Ayaan batres/Faleydig/eTransmitting on: 0 05/18/2025 10:27 AM EDT
--- OUTSIDE RECORDS SUMMARY | 2025-05-16 10:03 | XMS_ITS ---
Author Organization [facility] in [place] Address [address] [place] [address] Care Team Providers Care Cable Television Line Technician Name Role Phone Conrad Sosa Primary Care Provider REASON FOR VISIT referral Encounters Encounter Location Date Provider Diagnosis [facility] [address] [place] [address] 05/16/2025 Conrad Sosa Plan Of Treatment Next Appt Details Provider Name:Conrad batres, 05/19/2025 11:30:00 AM, [address] [place], [address], Progress Notes * Doris GRAHAMOB:1955 ( 69 yo F)Acc No.[id number]:05/16/2025 Patient: Renuka FRENCH :1955 A ge:69 Y S ex:Female Address:[address] [place] [address] * true * Date: Generated for Ayaan batres/Faleydig/eTransmitting on: 0 05/18/2025 10:27 AM EDT
--- OUTSIDE RECORDS SUMMARY | 2025-05-18 10:27 | XMS_ITS | Clinical Summary ---
Author Organization [facility] Address [address], [address] [place] [address] Care Team Providers Care Company Laborer Name Role Phone Unavailable Primary Care Provider [...] in the evening. Active Cholecalciferol 1.25 MG (07331 UT) TABS Take 1 capsule by mouth [...] = 0.6 oz pur e alcohol) Ocassionally [facility] Utilities Answer Date Recorded In the past 12 months has th e [employer], gas, oil, or water company threatened to [...] any time in the [facility] were you homeless or living in a fdc (including now)? No 01/05/2025 Food Insecurity Answer [...] years 1-dose series) 2015 COVID-19 Vaccine ( - season) 2024 01/24/2021, 01/02/2021 Annual Wellness Visit [...] - 145 mmol/L 01/05/2025 3:30 PM EDT [facility] Potassium 4.1 3.7 - 5.3 mmol/L 01/05/2025 3:30 PM EDT [facility] Chloride 109(H) 98 - 107 mmol/L 01/05/2025 3:30 PM EDT [facility] CO2 23 20 - 31 mmol/L 01/05/2025 3:30 PM EDT [facility] Anion Gap 9 9 - 16 mmol/L 01/05/2025 3:30 PM [facility] Glucose 166(H) 74 - 99 mg/dL 01/05/2025 3:30 PM EDT [facility] BUN 19 8 - 23 mg/dL 01/05/2025 3:30 PM EDT [facility] Creatinine 1.0(H) 0.50 - 0.90 mg/dL 01/05/2025 3:30 PM EDT [facility] Est, Glom Filt Rate 60(L) >60 mL/min/1.7 3m2 01/05/2025 3:30 PM EDT [facility] Comment: These results are not [...] 9 - 20 01/05/2025 3:30 PM EDT [facility] Calcium 8.7 8.6 - 10.4 mg/dL 01/05/2025 3:30 PM EDT [facility] Blood BLOOD SPECIMEN / Unknown 01/05/2025 3:30 PM EDT 01/05/2025 3:33 PM EDT us Danika Prince CORNER BRACE BLOCK MACHINE OPERATOR - SECURITY POLICE CHEMISTRY ORD ERABLES Final Result [facility] [address] [id number], [facility] [phone] from Last 3 Months or Most Recently Relevant to Health Maintenance Insurance AETNA MEDICARE MEDICAID [place] Advance Directives * Full Code (Latest Code Status on File) Date Activated Date Inactivated Comments 01/05/2025 6:23 AM 01/06/2025 2:44 PM
--- OUTSIDE RECORDS SUMMARY | 2025-05-18 10:28 | XMS_ITS | Patient Health Record ---
Author Organization [facility] Address [address] [place] [address] Care Team Providers Care Emergency Vehicle Operator Name Role Phone Conrad Sosa DO Primary Care Provider Unavail able Marshall Bryan Unavailable [phone] Araceli Edwards Unavailable [phone] Sage Alfaro Unavailable [phone] Allergies Allergen (clinical drug ingredient) Drug/Non Drug Allergy documented on EMR Reaction Allergy Type Onset Date Status all tapes, band-aids (uncoded) blisters, swollen throat Allergy Active Latex Latex (uncoded) Unknown Allergy Acti ve penicillin (uncoded) blisters, swollen throat Allergy Active sulfa (uncoded) blisters, swollen throat Allergy Active aspirin aspirin blisters, swollen throat Drug Allergy Active Results Component Value Reference Range Notes CBC with Diff Reviewed date:01/07/2025 09:45:11 AM Interpretation: Performing Lab: Notes/Report: [facility] [address] [place] [address] Physics Tutor: Reagan Lea MD WBC Count 4.4 3.5-11.3 k/uL RBC [...] k/uL Morphology Normal Performing Lab: see note [facility] [address] [place] [id number] UA w Reflex Culture Reviewed date:01/07/2025 09:45:26 AM Interpretation: Performing Lab: Notes/Report: [facility] [address] [place], [place] [id number] Physics Tutor: Reagan Lea MD Color Yellow YEL Clarity, Urine Clear CLEAR Glucose,Semi-qnt,Ur NEGATIVE NEG mg/dL Bilirubin, SemiQt,Ur NEGATIVE NEG Ketones, Urine NEGATIVE NEG mg/dL Spec. Eleva,Ur <1.005 1.010-1.020 Blood, Urine NEGATIVE NEG PH,Ur 7.5 5.0-9.0 Protein, Semi-qnt,Ur NEGATIVE NEG mg/dL Urobilinogen,Ur Normal 0.0-1.0 EU/dL Nitrite,Ur NEGATIVE NEG Leukocyte Esterase NEGATIVE NEG Performing Lab: see note [facility] [address] [place] [address] Glucose, Whole Blood Reviewed date:01/07/2025 09:46:11 AM Interpretation: Performing Lab: Notes/Report: Glucose, Whole Blood 136 74-100 mg/dL Performing Lab: see note TT - Produce r Id information not found for OBX-specific marketing producer legend Urinalysis Micro Reviewed date:01/07/2025 09:45:24 AM Interpretation: Performing Lab: Notes/Report: [facility] [address] [place], [place] [address] Physics Tutor: Reagan Lea MD Urine WBC's None 0-5 /HPF Urine RBC's None 0-2 /HPF Epithelial cells 0 TO 2 0-25 /HPF Performing Lab: see note [address] [place] [address] Surgery Scheduling Reviewed date:01/06/2025 08:08:30 AM Interpretation: Performing Lab: Notes/Report: Primary Insurance Company: Medicare Aetna Surgeon/Assist: Marshall Bryan MD/Maria De Jesus Bentley Surgery Location: [facility] Surgery Date & Time: January 05, 2025 Procedure: Left Hip Intra-Artic ular Injection CPT #27453 C-Arm: yes Diagnosis: Left Hip Pain/OA Admission Type: outpatient Anesthesia Type/CPNB: MAC Senior Ui Software Engineer: Rocío Bentley/Maria De Jesus Fluid Cell Count and Diff Reviewed date:11/14/2024 01:52:35 PM Interpretation: Performing Lab: Notes/Report: [address] [place] [id number] Physics Tutor: Reagan Lea MD Color Yellow Appearance SLIGHTLY CLOUDY WBC 156 RBC 8000 Type of Specimen .JOINT FLUID Neutrophils 28 0 % Lymphocyte 72 0 % Total Cells Counted 50 Performing Lab: see note [address] [place] [id number] Cult Aerobe Anaerobe Reviewed date:11/21/2024 08:16:42 AM Interpretation: Performing Lab: Notes/Report: [address] [id number] Physics Tutor: Rocco Salas MD [address] [place], [place] 3[address] Physics Tutor: Reagan Lea MD Cult,Aerobe/Anaerobe Specimen Description .JOINT FLUID .KNEE LEFT 6.8mL Special Requests .JOINT FLUID .KNEE LEFT Direct Exam FEW NEUTROPHILS NO ORGANISMS SEEN Culture NO GROWTH 5 DAYS Report Status FINAL 11/19/2024 Performing Lab: see note [address] [place] [address] Crystals Fluids Reviewed date:11/16/2024 07:56:40 AM Interpretation: Performing Lab: Notes/Report: [facility] [address] [place] [address] Physics Tutor: Rocco Salas MD [address] [place] [address] Physics Tutor: Reagan Lea MD Type of Specimen .JOINT FLUID Crystals,Fluid NEGATIVE NEG NO CRYSTALS S EEN Pathologist Review: ELECTRONICALLY AUSTIN ALDRICH M.D. Performing Lab: see note [address] [place] [address] [facility] [address] [facility] [address] Basic Metab w/rfx MG Reviewed date:01/07/2025 09:45:23 AM Interpretation: Performing Lab: Notes/Report: [address] [place] [address] Physics Tutor: Reagan Lea MD NA (Sodium) 141 136-145 [...] 8.7 8.6-10.4 mg/dL Performing Lab: see note [address] [place] [address] XR CHEST (2 VW) Reviewed date:01/07/2025 09:45:38 AM Interpretation: Performing Lab: Notes/Report: EXAMINATION: Performed at: [address] [place] [address] FLUORO FOR SURGICAL PROCEDUR ES Reviewed date:01/07/2025 09:45:49 AM Interpretation: Performing Lab: Notes/Report: Radiology exam is complete. No Radiologist dictation. Please follow up with ordering provider. Performed at: [address] [place] [address] Reason For Referral Reason NO AUTH REQ.....................................01/05/25............................AETNA MCR Left Hip Intra-Articular Injection @ [facility] Diagnos is 1 Pain in left hip (M25.552) Referra l [facility] Referri medardo Provide r First Name Marshall Refertania batres Provide r Last Name Irvin Referri medardo Provide r Special ity Orthopedic Surgery Referre d [facility] Referre d Address [address] [facility] [place],[address],[place] Procedu re 1 Injection major joint/bursa () Procedu re 2 NEEDLE LOCALIZATION BY XRAY (54668) General Notes Rocío Christianson 11/29/2024 01:14:04 PM >Ian Kayla 12/16/2024 11:56:08 AM > AETNA ACTIVE AND EFFECTIVE 10/19/23 PER [employer]. NO AUTHORIZATION REQUIRED PER AETNA CPT CODE FUNDRAISING CONSULTANT. SCANNED INTO CHART AND FAXED TO [facility].Sammy Kelly 12/16/2024 12:45:19 PM > Referra l Priorit y Routine Reason PLEASE SCHEDULE SAYRA Zamorano AN APPT WITH DR MYRANDA JOEL Diagnosis 1 Pain due to internal orthopedic prosthetic devices, implants and grafts, initial encounter (T84.84XA) Referral Organization [facility] Referring Provider First Name Nick Referring Provider Last Name Sonal Referring Provider Speciality Physician Auto Design Checker Referred Organization [facility] Referral Dept General Notes [...] Problem Status W/U Status Risk Notes Problem Localized, primary osteoarthritis of the pelvic region and thigh (483743539) Unilateral primary osteoarthritis, left hip (M16.12) Active confirmed Problem [id number] Effusion, left knee (M25.462) Active confirmed Problem 87752971 Pain in left hip (M25.552) Active confirmed Problem 6676214116 Pain due to internal orthopedic prosthetic devices, implants and grafts, initial encounter (T84.84XA) Active confirmed Problem 662165469531 Presence of left artificial knee joint (Z96.652) Active confirmed Problem 611067006279 Presence of unspecified artificial knee joint (Z96.659) Active confirmed Problem 3361417584 Acute pain of left knee (M25.562) Active confirmed Vital Signs Height 63 in 02/20/2025 Weight 212 lbs 02/20/2025 BMI 37.55 02/20/2025 Encounters Encounter Location Date Provider Diagnosis [facility] [address] [employer] [place] [address] 09/26/2024 Sage Alfaro Acute pain of left knee M25.562 ; Pain due to internal orthopedic prosthetic devices, implants and grafts, initial encounter T84.84XA and Presence of left artificial knee joint Z96.652 [facility] Office [facility] [place] [address] [place] [address] 10/31/2024 Sage Alfaro Presence of left artificial knee joint Z96.652 and Pain due to internal orthopedic prosthetic devices, implants and grafts, initial encounter T84.84XA [facility] [address] [place] [address] 11/14/2024 Araceliean Edwards Effusion, left knee M25.462 [facility] [address] [place] [address] 11/28/2024 Marshall Bryan Pain due to internal orthopedic prosthetic devices, implants and grafts, initial encounter T84.84XA ; Pain in left hip M25.552 and Presence of left artificial knee joint Z96.652 [facility] [address] [place] [address] 01/02/2025 Marshall Bryan Pain in left hip M25.552 ; Pain due to internal orthopedic prosthetic devices, implants and grafts, initial encounter T84.84XA and Unilateral primary osteoarthritis, left hip M16.[address] [place] [address] 01/05/2025 Marshall Bryan Unilateral primary osteoarthritis, left hip M16.12 [facility] [address] [place] [address] 02/20/2025 Marshall Bryan Pain due to internal [...] - Z96.652) Painful left total knee arthroplasty 09/26/2024 Other [...] does not want to drive down to [place]. Did discuss that revision surgery would be [...] Left hip pain Left hip osteoarthritis 02/20/2025 Other Discussed treatment options with patient. [...] of perioperative infection. Will refer her to [facility] at this time. Ice and anti-inflammatory as needed for pain. Activity modification as needed for pain. Weightbearing as tolerated. All questions and concerns were addressed. Patient was in agreement with the treatment plan. Will plan to see the patient back on as-needed basis. Left hip pain Left hip osteoarthritis Painful left total knee arthroplasty Plan Of Treatment Pending Test Test Name Order Date Crystals 11/14/2024 Hip, Bilateral, AP Pelvis and Bilateral Lateral [id number] 03/11/2023 GRAM STAIN 11/14/2024 CBC W DIFF SED RATE CRP 09/26/2024 PT 03/11/2023 Cell Count Body Fluid 11/14/2024 AEROBIC AND ANAEROBIC CULTURE 11/14/2024 SCC- KNEE 4 VIEW LEFT-[id number] 09/26/2024 RSS: HIP LEFT POSTOP AP X-FIRE LAT, AP P HARRISON STANDING [address] 11/28/2024 Insurance Providers Payer Name Payer Address Payer Phone Subscriber Number Group Number Insured Name Patient Relationship to Insured Coverage Start Date Coverage End Date Medicare Aetna [address] [place] [phone] [id number] RENUKA GRAHAM Self - [facility] the [facility] [address] [place] [address] [phone] [id number] RENUKA GRAHAM Self - patient is the [...]
--- OUTSIDE RECORDS SUMMARY | 2025-05-18 10:28 | XMS_ITS | Encounter Summary ---
Author Organization [facility] Address [address] [place] [address] Care Team Providers Care Pediatric Oncology Nurse Name Role Phone Conrad Sosa DO Primary Care Provider [phone] Italo Ann MD Unavailable [phone] Source Comments In the event this information is protected by the Federal Confidentiality of Alcohol and Drug AbusePatient Records regulations: The Federal rules restrict any use of the information to criminally investigate or prosecute any alcohol or drug abuse patient.[facility] Encounter Details Date Type Department Care Team (Late st Contact Info) Description 2020 [place] [address] Provider, [facility] Medicare Coverage of Physical Exams [...] on filedocumented in this encounter Care Teams Pediatric Oncology Nurse Relationship Specialty Start Date End Date Conrad Sosa DO PCP - General Family Medicine 06/25/17 Italo Ann MD [address] [address] Primary Staff Physician Cardiology 01/04/19 documented as of this encounter
--- OUTSIDE RECORDS SUMMARY | 2025-05-18 10:28 | XMS_ITS | Encounter Summary ---
Author Organization [facility] Address [address] [place] [address] Care Team Providers Care Disintegrator Name Role Phone Conrad Sosa DO Primary Care Provider [phone] Italo Ann MD Unavailable [phone] Italo Ann MD Unavailable [phone] Source Comments In the event this information is protected by the Federal Confidentiality of Alcohol and Drug AbusePatient Records regulations: The Federal rules restrict any use of the information to criminally investigate or prosecute any alcohol or drug abuse patient.[facility] Encounter Details Date Type Department Care Team (Late st Contact Info) Description 11/14/2019 Patient Msg Cardiology [address] [phone] Italo Ann MD [address] [place] [address] RE: Appointment Cancellation Request Social History Tobacco [...] on filedocumented in this encounter Care Teams Disintegrator Relationship Specialty Start Date End Date Conrad Sosa DO PCP - General Family Medicine 06/25/17 Italo Ann MD [address] [facility] [address] [place] [address] Primary Staff Physician Cardiology 01/04/1901/04 Italo Ann MD [address] [facility] [address] [place] [address] Primary Staff Physician Cardiology 01/04/19 documented as of this encounter
--- OUTSIDE RECORDS SUMMARY | 2025-05-18 10:29 | XMS_ITS | Clinical Summary ---
Author Organization [facility] Address [address] [place] [address] Phone Care Team Providers Care Castings Drafter Name Role Phone Conrad Sosa DO Primary [...] Health Maintenance Due Date Last Done Comments CT Colonography 1955 Colonoscopy 1955 Colorectal Cancer Screening 1955 Creatinine Level 1955 FIT-DNA (Cologuard) 1955 FIT 1955 Lipid Panel 1955 Medicare Annual Wellness Visit (AWV) 1955 Potassium Level 1955 Sigmoidoscopy 1955 MMR Vaccines (1 of 1 - Standard series) 1956 Hepatitis C Screening 1973 CKD: Urine Protein Screening 1974 DTaP/Tdap/Td Vaccines (1 - Tdap) 1977 Mammogram 1995 Zoster Vaccines (1 of 2) 2005 RSV High Risk: (Elderly (60+) or Population) (1 - Risk 60-74 years 1-dose series) 2015 Bone Density Scan 2020 Echocardiogram 02/07/2021 02/08/2020 Diabetes Screening 03/19/2024 03/19/2023, 09/19/2022 COVID-19 Vaccine (1 - 2023- season) 2024 Influenza Vaccine (#1) 2025 2, [...] RADIOLOGY SYSTEM - 02/08/2020 12:00 AM EDT [address], Suite [facility], [place] [address] TRANSTHORACIC ECHOCARDIOGRAM REPORT Patient Name: VILMA Yepez Physician: [id number] Castanon MD Study Date: 02/08/2020 Referring Physician: Martell Castanon MD MRN/PID: [id number] PCP: Conrad Sosa Accession/Order#: [id number] Department Location: [facility] Date of : 1955 Fellow: Gender: F Nurse: Admit Date: Business Loan Processor: Jennifer Ceballos RDCS, RVT Height: 160.02 cm CC Report to: Weight: 111.59 kg Study Type: Echocardiogram BSA: 2.11 m2 Blood Pressure: 142 /80 mmHg Diagnosis/ICD: R06.02-Shortness of breath Indication: Right CHF, COPD, Diabetes, HTN, Edema, Forme Smoker, JEREMY, CKD-Stage IV, Morbid Obesity-s/p Gastric Bypass Procedure/CPT: Echo Complete w Full [id number] Study Detail: The following Echo studies were [...] mmHg PIEDV: 1.65 m/s PADP: 15.9 mmHg [id number] Luis Castanon MD Electronically signed on 02/08/2020 at 4:38:48 PM Final Procedure Note Conversion, Syngo - 11/21/[address], [address], [place] [address] TRANSTHORACIC ECHOCARDIOGRAM REPORT Patient Name: VILMA GRAHAM Reading Physician: [id number] Luis Croft Study Date: 02/08/2020 Referring Physician: [id number] Croft MRN/PID: [id number] PCP: Conrad Sosa Accession/Order#: [id number] Department Location: [facility] Date of : 1955 Fellow: Gender: F Nurse: Admit Date: Business Loan Processor: Jennifer Ceballos RD,T Height: 160.02 cm CC Report to: Weight: 111.59 kg Study Type: Echocardiogram BSA: 2.11 m2 Blood Pressure: 142 /80 mmHg Diagnosis/ICD: R06.02-Shortness of breath Indication: Right CHF, COPD, Diabetes, HTN, Edema, Forme Smoker, JEREMY, CKD-Stage IV, Morbid Obesity-s/p Gastric Bypass Procedure/CPT: Echo Complete w Full [id number] Study Detail: The following Echo studies were [...] mmHg PIEDV: 1.65 m/s PADP: 15.9 mmHg [id number] Luis Castanon MD Electronically signed on 02/08/2020 at 4:38:48 PM Final us Syngo Conversion CV ECHO PROCEDURES Final Result [facility] RADIOLOGY SYSTEM [facility] [address] from Last 3 Months or Most Recently Relevant to Health Maintenance Insurance MEDICAID AETNA MEDICARE ASSURE MEDICAID AETNA MEDICARE ASSURE Care Teams Castings Drafter Relationship Specialty Start Date End Date Conrad Sosa DO [address] [place] [address] PCP - General 09/25/22
--- OUTSIDE RECORDS SUMMARY | 2025-05-18 10:29 | XMS_ITS | Patient Health Record ---
Author Organization [facility] in [place] Address [address] [place] [address] Care Team Providers Care Airline Operations Agent Name Role Phone Conrad Sosa Primary Care Provider [phone] Allergies Allergen (clinical drug ingredient) Drug/Non Drug Allergy documented on EMR Reaction Allergy Type Onset Date Status aspirin Aspirin anaphylaxis Drug Allergy Activ e Substance with sulfonamide structure and antibacterial mechanism of action (substance) Sulfa Antibiotics Unknown Drug Allergy Active Penicillin Unknown Drug Allergy Active Results Component Value Reference Range Notes XR Abdomen AP (1 view) (KUB) * Reviewed date:05/05/2025 10:46:50 AM Interpretation: Performing Lab: Notes/Report: CBC WITH DIFF Reviewed date:05/05/2025 10:46:50 AM Interpretation: Performing Lab: Notes/Report: WBC 608 RBC 4.52 HEMOGLOBIN 12.7 HEMATOCRIT 39.6 MCV 87.6 MCH 28.1 MCHC 32.1 RDW-SD 13.9 PLT 228 CMP (COMP MET GONZALEZ) w/eGFR CK D-EPI Reviewed date:05/05/2025 10:46:50 AM Interpretation: Performing Lab: Notes/Report: GLUCOSE (FBS) 110 BUN (UREA NTORGEN) 35.0 CREATININE 1.43 GFR CKD 36 SODIUM (NA) 143 POTASSIUM (K) 3.5 CHLORIDE (CL) 105 CARBON DIOXIDE 28.4 CALCIUM 8.7 ALBUMIN, BLOOD 3.4 PROTEIN, TOTAL (TP) 7.2 ALKALINE PHOSPHATE (ALP) 85 ALT (SGPT) 28 AST (SGOT) 19 BILIRUBIN, TOTAL 0.4 BUN/CREATININE RATIO 24.5 UA (REFLEX URINALYSIS TO CUL TURE) Reviewed date:05/05/2025 10:46:50 AM Interpretation: Performing Lab: Notes/Report: APPEARANCE lt. yellow BILIRUBIN neg CASTS none CRYSTALS none GLUCOSE neg KETONES neg LEUKOCYTE ESTERASE small NITRITE neg OCCULT BLOOD neg PH 5.5 PROTEIN neg RBC none LIPASE Reviewed date:05/05/2025 10:46:50 AM Interpretation: Performing Lab: Notes/Report: LIPASE 39.0 AMYLASE Reviewed date:05/05/2025 10:46:50 AM Interpretation: Performing Lab: Notes/Report: AMYLASE 66 Reason For Referral Reason L knee surgery Diagnosis 1 Other chronic pain ( G89.29) Diagnosis 2 Pain in left knee (M 25.562) Referral Organization [facility] Referring Provider First Name Conrad Referring Provider Last Name Ian Referring Provider [facility] tresa Referred Provider Specialty Orthopedic S urgery General Notes Conrad Sosa 10:08:03 AM >please call pt for appt Referral Priority Routine Reason Palliative care refe rral d/t multiple chronic conditions Diagnosis 1 Other chronic pain ( G89.29) Diagnosis 2 Chronic kidney disea se, stage 3 unspecified (N18.30) Diagnosis 3 Fibromyalgia (M79.7) Diagnosis 4 Type 2 diabetes marilu itus with other specified complication (E11.69) Referral Organization [facility] Referring Provider First Name Conrad Referring Provider Last Name Ian Referring Provider [facility] tresa Referred Provider [facility] Referred Provider Specialty Palliative C are Referral [...] with other specified complication (E11.69) Referral Organization [facility] Referring Provider First Name Conrad Referring Provider Last Name Sosa Referring Provider [facility] tresa Referred Provider [facility] Referred Provider Specialty Palliative C are Referral Priority Routine Reason screening colonoscop y - was due in 2022 Diagnosis 1 Encounter for screen ing for malignant neoplasm of colon (Z12.11) Referral Organization [facility] juanmike Referring Provider First Name Conrad Referring Provider Last Name Sosa Referring Provider Special[facility] tresa Referred Provider Glen Bejarano Referred Provider Specialty Gastroentero logy General Notes Conrad Sosa Julio Cesar 04:11:03 PM >please call pt for apt Referral Priority Routine Reason eval & treat Diagnosis 1 Chronic kidney disea se, stage 3a (N18.31) Referral Organization [facility] rupa Referring Provider First Name Conrad Referring Provider Last Name Sosa Referring Provider Special[facility] tresa Referred Provider Tg Ortega Referred Provider Specialty Nephrology Referral Priority Routine Medications Medication SIG (Take, Route, Frequency, Duration) Notes Start Date End Date Status Dicyclomine HCl 20 MG 1 tablet Orally Th ree times a day for 90 days 07/08/2023 Active Fluconazole 100 MG 1 tablet Orally dante y for 30 days 08/10/2024 Unknown FiberCon 625 MG 2 tablets as needed Orally Three times a day for 90 days Active Bumetanide 1 MG 1 tablet Orally BID for 90 days Active Breo Ellipta 100-25 MCG/ACT 1 puff Inhal ation Once a day for 30 days 11/04/2024 Unknown Allopurinol 100 mg TAKE TWO TABLETS BY MOUTH DAILY FOR 90 DAYS for 90 days Active Vitamin D (Ergocalciferol) 1.25 MG (73300 UT) 1 capsule Orally qweek for 90 days 09/16/2024 Active diazePAM 5 MG 1 tablet as needed Orally PRN Active Ferrous Sulfate 325 (65 Fe) MG 1 tablet Orally Once a day Unknown Cyanocobalamin 1000 MCG/ML 1 mL Injectio n SQ qmonth for 30 days Active DULoxetine HCl 30 MG 1 capsule Orally On ce a day Unknown Phentermine HCl 37.5 MG 1 tablet before breakfast Orally Once a day for 30 days 04/19/2025 Active Bisacodyl EC 5 MG TAKE 1 TABLET BY GOPAL TH EVERY DAY FOR 30 DAYS for 30 Active Albuterol Sulfate (2.5 MG/3ML) 0.083% 3 mL as needed Inhalation every 6 hrs for 30 days 11/04/2024 Active Temazepam 15 MG 1 capsule at bedtime as needed Orally Once a day for 90 days 12/01/2024 Active Probiotic Active Alendronate Sodium 70 mg TAKE ONE TABLET BY MOUTH ONCE WEEKLY for 84 Active Topiramate 200 MG 1 tablet Orally bid for 30 days 12/28/2024 Active Gabapentin 300 MG TAKE ONE CAPSULE BY MOUTH THREE TIMES A DAY for 90 Active Albuterol Sulfate HFA 108 (90 Base) MCG/ACT INHALE 2 PUFFS EVERY 6 HOURS NEEDED for 25 Active tiZANidine HCl 4 mg TAKE TWO TABLETS ora lly bid for 30 days Active PrePLUS 27-1mg Active Pantoprazole Sodium 40 mg TAKE ONE TABLE T BY MOUTH TWICE A DAY for 90 days Active Ondansetron 4 MG 1/2-1 tablet on the tongue and allow to dissolve Orally Q8 hours/PRN nausea for 30 days PRN Active Vitamin D3 Unknown Topiramate 100 MG 1 tablet Orally bid for 90 days 02/17/2024 Unknown oxyCODONE-Acetaminophen 5-325 MG 1 tablet as needed Orally bid for 30 days 02/16/2025 Active Ondansetron HCl 4 MG 1 tablet Orally tid prn N for 30 days 04/10/2025 Active Fluticasone Propionate 50 MCG/ACT 2 sprays Nasally Twice a day/PRN for 30 days PRN Active Plavix 75 MG 1 tablet Orally Once a day Unknown Fluconazole 100 MG 1 tablet Orally dante y for 7 days 03/22/2025 Active Magnesium 500 mg Unknown hydrOXYzine HCl 10 MG 1-2 tablets Orally every 6 hrs prn for 30 days Active Topiramate 50 MG 1 tablet Orally bid for 90 days 08/10/2024 Unknown Symbicort 160-4.5 MCG/ACT 2 puffs Inhala tion Twice a day Unknown guaiFENesin-Codeine 100-10 MG/5ML 10 mL as needed Orally q8 hours for 30 days 11/04/2024 Unknown Fluticasone-Salmeterol 232-14 MCG/ACT 2 puffs Inhalation Twice a day for 30 days PRN Unknown Magnesium Oxide -Mg Supplement 500 MG TAKE 1 CAPSULE BY MOUTH EVERYDAY AT BEDTIME for 90 Active Immunizations Vaccine Route Administration Date Status Comme nts Flu, Fluad ([id number]) (33348) 65 yrs+, single-dose syringe IM Intramuscular 08/07/2022 Administered Flu, Fluad (1308-9200) (34413) 65 yrs+, single-dose syringe IM Intramuscular 08/26/2023 Administered Flu, Fluad (60893) 65 yrs and older, single-dose syringe IM [...] Problem Status W/U Status Risk Notes Problem 00966623 Essential (prima ry) hypertension (I10) Active confirmed Problem 966132228 Peripheral vascu lar disease, unspecified (I73.9) Active confirmed Problem 270141937 Gastro-esophagea l reflux disease without esophagitis (K21.9) Active confirmed Problem 368680201 Chronic kidney disease, unspecified (N18.9) Active confirmed Problem 034081491 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) Active confirmed Problem 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, 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) Active confirmed Problem 351219972 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) Active confirmed Problem Type 2 diabetes mellitus with other specified complication (E11.69) Active confirmed Problem 96758743 Vitamin D defici ency, unspecified (E55.9) Active confirmed Problem 541438131 Morbid (severe) obesity due to excess calories (E66.01) Active confirmed Problem 095017631 Obesity, unspeci fied (E66.9) Active confirmed Problem 867336185 Hypomagnesemia (E83.42) Active confirmed Problem 2767397 Primary insomnia (F51.01) Active confirmed Problem 330894204 Insomnia, unspec ified (G47.00) Active confirmed Problem 27824152 Other chronic pa in (G89.29) Active confirmed Problem 305077842 Chronic pain syn drome (G89.4) Active confirmed Problem 19331244 Left bundle-bran ch block, unspecified (I44.7) Active confirmed Problem 3435512 Other ill-define d heart diseases (I51.89) Active confirmed Problem 591401918 Lymphedema, not elsewhere classified (I89.0) Active confirmed Problem 89063165 Allergic rhiniti s, unspecified (J30.9) Active confirmed Problem 630598621 Mild intermitten t asthma with (acute) exacerbation (J45.21) Active confirmed Problem 733333920 Moderate persist ent asthma, uncomplicated (J45.40) Active confirmed Problem 946964317 Unspecified asth ma, uncomplicated (J45.909) Active confirmed Problem 77073431 Constipation, unspecified (K59.00) Active confirmed Problem 725869514 Bilateral primar y osteoarthritis of hip (M16.0) Active confirmed Problem 825154593161285 Unilateral prima ry osteoarthritis, left hip (M16.12) Active confirmed Problem Disorder of connective tissue (038109126) Systemic involvement of connective tissue, unspecified (M35.9) Active confirmed Problem 103968590 Spondylosis with out myelopathy or radiculopathy, cervical region (M47.812) Active confirmed Problem 005165018 Spondylosis with out myelopathy or radiculopathy, lumbar region (M47.816) Active confirmed Problem 36082812 Other interverte bral disc degeneration, lumbar region (M51.36) Active confirmed Problem 452487384 Fibromyalgia (M79.7) Active confirmed Problem Secondary hyperparathyroidism of renal origin (70422501) Secondary hyperparathyroidism of renal origin (N25.81) Active confirmed Problem 91762678 Dysphagia, unspecified (R13.10) Active confirmed Problem 40553955 Paresthesia of s kin (R20.2) Active confirmed Problem 01788610 Unsteadiness on feet (R26.81) Active confirmed Problem 98709753 Chronic fatigue, unspecified (R53.82) Active confirmed Problem 092784271 PVD (peripheral vascular disease) (I73.9) Active confirmed Problem 75638913 JEREMY (obstructive sleep apnea) (G47.33) Active confirmed Problem 263088861296406 Primary osteoarthritis of left knee (M17.12) Active confirmed Problem 21192193 Lumbar degenerat junior disc disease (M51.36) Active confirmed Problem 001841642 Diverticulosis (K57.90) Active confirmed Problem 283579703 Gastroesophageal reflux disease without esophagitis (K21.9) Active confirmed Problem 43851087 Pulmonary emphys rossy, unspecified emphysema type (J43.9) Active confirmed Problem 625420171 Primary osteoarthritis of both knees (M17.0) Active confirmed Problem 329956347 B12 deficiency (E53.8) Active confirmed Problem 267605908263189 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, unspecified site (M1A.00X0) Active confirmed Problem 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0-36.9, adult (Z68.36) Active confirmed Problem 446609830 Body mass index [BMI] 37.0-37.9, adult (Z68.37) Active confirmed Problem 404981310 Body mass index [BMI] 38.0-38.9, adult (Z68.38) Active confirmed Problem 264664099 Body mass index [BMI] 40.0-44.9, adult (Z68.41) Active confirmed Vital Signs Heart Rate 76 /min 04/19/2025 Respiratory Rate 16 /min 04/19/2025 Oximetry 97 % 04/19/2025 Blood pressure diastolic 80 mm Hg 04/19/2025 Height 63 in 04/19/2025 Blood pressure systolic 132 mm Hg 04/19/2025 Weight 212.4 lbs 04/19/2025 BMI 37.62 kg/m2 04/19/2025 Procedures Procedure Date Ordered Date Performed Result Body Sit e Carotid Doppler 04/19/2025 04/25/2025 N/A EKG w Interp & Report - performed 01/02/2025 01/02/2025 N/ A Encounters Encounter Location Date Provider Diagnosis [facility] [address] [place] [address] 05/16/2025 Conrad Sosa [facility] Quality Programs Department [address] [place] [address] 01/20/2025 [facility] [address] [place] [address] 02/24/2025 [facility] [address] [place] [address] 03/22/2025 [facility] [address] [place] [address] 03/29/2025 Conrad [facility] [address] [place] [address] 05/05/2025 [facility] [address] [place] [address] 05/11/2025 [facility] [address] [place] [address] 11/28/2024 Conrad Valentinering Vitamin D deficiency , unspecified E55.9 ; B12 deficiency E53.8 ; Mild intermittent asthma with (acute) exacerbation J45.21 ; Unspecified asthma, uncomplicated J45.909 ; Idiopathic chronic gout without tophus, unspecified site M1A.00X0 ; Diarrhea, unspecified R19.7 ; Itchy skin L29.9 ; Gastro-esophageal reflux disease without esophagitis K21.9 ; Primary insomnia F51.01 ; Abnormal weight gain R63.5 and Chronic pain syndrome G89.4 [facility] Quality Programs Department [address] [employer] [facility] [employer] [facility] [address] [facility]/28[facility] [address] [place] [address] 12/22/2024 [facility] [address] [place] [address] 01/06/2025 [facility] [address] [place] [address] 01/09/2025 [facility] [address] [place] [address] 01/18/2025 [facility] [address] [place] [address] 09/13/2024 [facility] [address] [place] [address] 09/16/2024 Conrad Sosa Other sites of richard diasis B37.89 [facility] [address] [place] [address] 09/27/2024 Conrad Sosa [facility] [address] [place] [address] 10/28/2024 Conrad Sosa [facility] [address] [place] [address] 11/12/2024 Conrad Sosa Vitamin D deficiency , unspecified E55.9 [facility] [address] [place] [address] 11/22/2024 Conrad Sosa B12 deficiency E53.8 [facility] [address] [place] [address] 06/23/2024 Conrad Sosa [facility] [address] [place] [address] 06/24/2024 Conrad Sosa Diarrhea, unspecifie d R19.7 [facility] [address] [place] [address] 08/10/2024 Conrad Sosa [facility] [address] [place] [address] 08/12/2024 Conrad Sosa Anemia in chronic ki dney disease D63.1 [facility] [address] [place] [address] 08/29/2024 Conrad Sosa [facility] [address] [place] [address] 09/08/2024 Conrad Sosa [facility] [address] [place] [address] 05/18/2024 Conrad Sosa Abnormal weight gain R63.5 [facility] [address] [place] [address] 05/19/2024 Conrad Sosa Pain in left knee M2 5.562 [facility] [address] [place] [address] 06/15/2024 Conrad Valentinering Primary insomnia F51 .01 [facility] [address] [place] [address] 11/04/2024 Conrad Sosa Mild intermittent as thma with (acute) exacerbation J45.21 ; Vitamin D deficiency, unspecified E55.9 ; Chronic pain syndrome G89.4 ; B12 deficiency E53.8 ; Morbid (severe) obesity due to excess calories E66.01 ; Chronic kidney disease, stage 3b N18.32 and Body mass index [BMI] 37.0-37.9, adult Z68.[address] [address] 12/05/2024 Conrad Sosa B12 deficiency E53.8 ; [...] and Chronic kidney disease, stage 3b N18.[address] [address] 12/28/2024 Conrad Sosa Unilateral primary osteoarthritis, left hip M16.12 ; Pain in left knee M25.562 ; Other chronic pain G89.29 ; Abnormal weight gain R63.5 ; B12 deficiency E53.8 ; Morbid (severe) obesity due to excess calories E66.01 ; Body mass index [BMI] 38.0-38.9, adult Z68.38 ; Obesity, class 2 E66.812 and Allergic rhinitis, unspecified J30.[address] [address] 10/10/2024 Conrad Sosa Encounter for screen ing [...] M1A.00X0 and Pain in right foot M79.[address] [address] 01/02/2025 Conrad Sosa Morbid (severe) obes ity due to excess calories E66.01 ; Body mass index [BMI] 38.0-38.9, adult Z68.38 ; Obesity, class 2 E66.812 ; Encounter for other preprocedural examination Z01.818 ; Unilateral primary osteoarthritis, left hip M16.12 ; Acute upper respiratory infection, unspecified J06.9 ; Dysphagia, unspecified R13.10 and Left bundle-branch block, unspecified I44.[address] [address] 02/16/2025 Conrad Sosa B12 deficiency E53.8 ; Pain in left knee M25.562 ; Other chronic pain G89.29 ; Morbid (severe) obesity due to excess calories E66.01 ; Body mass index [BMI] 38.0-38.9, adult Z68.38 ; Obesity, class 2 E66.812 and Nontoxic multinodular goiter E04.[address] [address] 03/22/2025 Conrad Sosa Candidiasis of skin and nail B37.2 ; Chest pain, unspecified R07.9 ; Abnormal weight gain R63.5 ; Morbid (severe) obesity due to excess calories E66.01 ; Body mass index [BMI] 38.0-38.9, adult Z68.38 and Obesity, class [address] [address] 04/19/2025 Conrad Sosa Abnormal weight gain R63.5 ; Dizziness and giddiness R42 ; Unspecified abdominal pain R10.9 ; Morbid (severe) obesity due to excess calories E66.01 ; Body mass index [BMI] 37.0-37.9, adult Z68.37 ; Obesity, class 2 E66.812 ; B12 deficiency E53.8 ; Other specified symptoms and signs involving the circulatory and respiratory systems R09.89 ; Encounter for screening for malignant neoplasm of colon Z12.11 and Scratched by cat, initial encounter W55.03XA [address] [address] 04/10/2025 Conrad Sosa Epigastric pain R10. 13 ; Nausea with vomiting, unspecified R11.2 ; Other constipation K59.09 ; Bitten by cat, initial encounter W55.01XA ; Morbid (severe) obesity due to excess calories E66.01 ; Body mass index [BMI] 37.0-37.9, adult Z68.37 and Obesity, class [address] [address] 06/15/2024 Conrad Sosa B12 deficiency E53.8 ; [...] and Chronic kidney disease, stage 3b N18.[address] [address] 07/13/2024 Conrad Sosa Abnormal weight gain R63.5 ; Pain in left knee M25.562 ; Morbid (severe) obesity due to excess calories E66.01 ; Body mass index [BMI] 38.0-38.9, adult Z68.38 ; Obesity, class 2 E66.812 ; Unspecified Eustachian tube disorder, bilateral H69.93 and Constipation, unspecified K59.[address] [address] 08/10/2024 Conrad Sosa Pain in left knee [...] adult Z68.38 and Obesity, class [address] [address] 09/12/2024 Conrad Sosa Pain in left knee M2 5.562 ; Other chronic pain G89.29 ; B12 deficiency E53.8 ; Morbid (severe) obesity due to excess calories E66.01 ; Body mass index [BMI] 38.0-38.9, adult Z68.38 ; Obesity, class 2 E66.812 ; Vitamin D deficiency, unspecified E55.9 ; Pure hypercholesterolemia E78.00 and Chronic kidney disease, stage 3b N18.[address] [address] 01/12/2025 Conrad Sosa Hypotension due to d rugs I95.2 [...] Rash and other nonspecific skin eruption R21 Assessments Encounter Date Diagnosis (ICD Code) Assessment Notes Treatment Notes Treatment Clinical Notes Section Notes 06/15/2024 B12 deficiency (ICD- 10 - E53.8) continue shots and monitor lab diet 06/15/2024 Vitamin D deficiency (ICD-10 - E55.9) lab - adjust tx based on results 08/10/2024 Pain in left knee (ICD-10 - M25.562) oarrs ok refer to dr romero at [facility] for a second opinion - d/w pt that if they wont take her she may need to go to [facility] rtc 3 months 08/10/2024 Other chronic pain (ICD-10 - G89.29) 09/12/2024 Pain in left knee (ICD-10 - M25.562) f/u ID (dr odette curiel) - continue doxy for 21 days rec weight loss rec pt call dr romero for appt oarrs ok monitor tox screen 09/12/2024 Other chronic pain (ICD-10 - G89.29) 10/10/2024 Encounter for screen ing mammogram for malignant neoplasm of breast (ICD-10 - Z12.31) 10/10/2024 B12 deficiency (ICD- 10 - E53.8) continue B12 shots monitor lab diet stable 07/13/2024 Abnormal weight gain (ICD-10 - R63.5) increase topamax to 150 am and 100 pm d/c adipex - not helping diet/exercise 07/13/2024 Pain in left knee (ICD-10 - M25.562) oarrs ok continue percocet f/u ID and ortho continue abx rec weight loss 11/04/2024 Mild intermittent asthma with (acute) exacerbation (ICD-10 - J45.21) pt states she doesnt like the advair - makes her feel odd using alb oarrs ok rtc prn 11/04/2024 Vitamin D deficiency , unspecified (ICD-10 - E55.9) monitor lab - adjust med if abnormal diet 12/05/2024 B12 deficiency (ICD- 10 - E53.8) monitor lab stable 12/05/2024 Morbid (severe) obes ity due to excess calories (ICD-10 - E66.01) diet/exercise due to HTN 12/28/2024 Unilateral primary osteoarthritis, left hip (ICD-10 [...] to anesthesia from her hip injection 02/16/2025 B12 deficiency (ICD- 10 - E53.8) b12 shot monthly diet/exercise monitor labs 02/16/2025 Pain in left knee (ICD-10 - M25.562) oars ok continue abx and f/u ID f/u ortho as directed rec weight loss monitor tox screen 03/22/2025 Candidiasis of skin and nail (ICD-10 - B37.2) rtc prn keep area clean and dry rec weight loss 03/22/2025 Chest pain, unspecif ied (ICD-10 - R07.9) prob muscular and stress related 04/19/2025 Abnormal weight gain (ICD-10 - R63.5) oarrs ok diet/exercise rtc 1 month 04/19/2025 Dizziness and giddin ess (ICD-10 - R42) hydrate ?positional vs arrythmia vs carotid vs ? set up carotid US b/l rec holter - pt states she is allergic 05/18/2024 Abnormal weight gain (ICD-10 - R63.5) [...] D deficiency , unspecified (ICD-10 - E55.9) 04/10/2025 Epigastric pain (ICD -10 - R10.13) ?gastritis vs PUD vs PBSO vs constipation vs gastroparesis vs viral vs ? continue ppi bid erx zofran BRAT no pop rtc prn hydrate labs ER if worsens 04/10/2025 Nausea with vomiting , unspecified (ICD-10 - R11.2) erx zofran 04/10/2025 Other constipation (ICD-10 - K59.09) erx dulcolox diet continue with fiber 11/28/2024 B12 deficiency (ICD- 10 - E53.8) 04/19/2025 Unspecified abdomina l pain (ICD-10 - R10.9) monitor prob IBS rec better eating fiber refer for colonoscopy 03/22/2025 Abnormal weight gain (ICD-10 - R63.5) oarrs ok rtc 1 month diet/exercise 02/16/2025 Other chronic pain (ICD-10 - G89.29) 01/12/2025 Morbid (severe) obes ity due to excess calories (ICD-10 - E66.01) diet/exercise 01/02/2025 Obesity, class 2 (ICD-10 - E66.812) 12/28/2024 Other chronic pain (ICD-10 - G89.29) 12/05/2024 Body mass index [BMI ] 37.0-37.9, adult (ICD-10 - Z68.37) 11/04/2024 Chronic pain syndrom e (ICD-10 - G89.4) pt sees surgeon in about 10 days oarrs ok monitor tox screen decrease pain med use when further tx determined for knee 07/13/2024 Morbid (severe) obes ity due to excess calories (ICD-10 - E66.01) diet/exercise 10/10/2024 Morbid (severe) obes ity due to excess calories (ICD-10 - E66.01) diet/exercise due to HTN 09/12/2024 B12 deficiency (ICD- 10 - E53.8) shot given today monitor lab 08/10/2024 Abnormal weight gain (ICD-10 - R63.5) increase topamax diet/exercise 06/15/2024 Pure hypercholesterolemia (ICD-10 - E78.00) diet/exercise statin if worsens 06/15/2024 Primary insomnia (ICD-10 - F51.01) continue restoril oarrs ok sleep hygeine 08/10/2024 Primary insomnia (ICD-10 - F51.01) continue [...] (ICD-10 - E66.01) diet/exercise due to HTN 10/10/2024 Body mass index [BMI ] 38.0-38.9, adult (ICD-10 - Z68.38) 07/13/2024 Body mass index [BMI ] 38.0-38.9, adult (ICD-10 - Z68.38) 11/04/2024 B12 deficiency (ICD- 10 - E53.8) monitor lab diet stable 12/05/2024 Obesity, class 2 (ICD-10 - E66.812) 12/28/2024 Abnormal weight gain (ICD-10 - R63.5) increase med diet/exercise 01/02/2025 Encounter for other preprocedural examination (ICD-10 - Z01.818) EKG today with LBBB and PVC d/w pt and preop pt medically cleared for her L hip injection in 3 days - note to be faxed to [phone] 01/12/2025 Body mass index [BMI ] 38.0-38.9, adult (ICD-10 - Z68.38) 02/16/2025 Morbid (severe) obes ity due to excess calories (ICD-10 - E66.01) diet/exercise due to HTN 03/22/2025 Morbid (severe) obes ity due to excess calories (ICD-10 - E66.01) diet/exercise due to heart dz 04/19/2025 Morbid (severe) obes ity due to excess calories (ICD-10 - E66.01) diet/exercise due to HTN 11/28/2024 Mild intermittent asthma with (acute) exacerbation (ICD-10 - J45.21) 04/10/2025 Bitten by cat initi al encounter (ICD-10 - W55.01XA) continue doxy she is on for her knee rtc if s/s of streaking/f/warm th/etc 04/10/2025 Morbid (severe) obes ity due to excess calories (ICD-10 - E66.01) diet/exercise 11/28/2024 Unspecified asthma, uncomplicated (ICD-10 - J45.909) 04/19/2025 Body mass index [BMI ] 37.0-37.9, adult (ICD-10 - Z68.37) 03/22/2025 Body mass index [BMI ] 38.0-38.9, adult (ICD-10 - Z68.38) 02/16/2025 Body mass index [BMI ] 38.0-38.9, adult (ICD-10 - Z68.38) 01/12/2025 Obesity, class 2 (ICD-10 - E66.812) 01/02/2025 Unilateral primary osteoarthritis, left hip (ICD-10 - M16.12) rec weight loss f/u ortho as directed for injection 12/28/2024 B12 deficiency (ICD- 10 - E53.8) rtc as directed diet monitor lab 12/05/2024 Pain in left knee (ICD-10 - M25.562) continue pain meds stable rec weight loss f/u ortho to see how much her L hip OA is causing L knee pains 11/04/2024 Morbid (severe) obes ity due to excess calories (ICD-10 - E66.01) diet/exercise due to HTN/CHF/CKD 07/13/2024 Obesity, class 2 (ICD-10 - E66.812) 10/10/2024 Obesity, class 2 (ICD-10 - E66.812) 09/12/2024 Body mass index [BMI ] 38.0-38.9, adult (ICD-10 - Z68.38) 08/10/2024 Paresthesia of skin (ICD-10 - R20.2) d/w pt I rec b/l UE/LE EMG - she will hold off ?raynauds ?increase gabapentin ?start procardia 06/15/2024 Pain in left knee (ICD-10 - M25.562) continue abx f/u ortho as directed oarrs ok continue percocet rec weight loss f/u ID as directed 06/15/2024 Other chronic pain (ICD-10 - G89.29) 08/10/2024 Other sites of candidiasis (ICD-10 - B37.89) keep area clean and dry erx diflucan rtc prn 09/12/2024 Obesity, class 2 (ICD-10 - E66.812) 10/10/2024 Pain in left knee (ICD-10 - M25.562) f/u ortho as directed rec weight loss continue pain med prn rtc 3 months oarrs ok 07/13/2024 Unspecified Eustachi an tube disorder, bilateral (ICD-10 - H69.93) continue antihistamine otc daily rec flonase ?singulair 11/04/2024 Chronic kidney disea se, stage 3b (ICD-10 - N18.32) monitor bmp and urine microalbumin rec seeing nephrology stable bp control rec farxiga 12/05/2024 Other chronic pain (ICD-10 - G89.29) 12/28/2024 Morbid (severe) obes ity due to excess calories (ICD-10 - E66.01) 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 01/02/2025 Acute upper respirat ory infection, unspecified (ICD-10 - J06.9) monitor for now call if s/s worsen rec claritin/flonase otc 01/12/2025 Other ill-defined he art diseases (ICD-10 - I51.89) f/u cardio as directed stable DD monitor bp 02/16/2025 Obesity, class 2 (ICD-10 - E66.812) 03/22/2025 Obesity, class 2 (ICD-10 - E66.812) 04/19/2025 Obesity, class 2 (ICD-10 - E66.812) 11/28/2024 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, 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) 04/10/2025 Body mass index [BMI ] 37.0-37.9, adult (ICD-10 - Z68.37) 04/10/2025 Obesity, class 2 (ICD-10 - E66.812) 11/28/2024 Diarrhea, unspecifie d (ICD-10 - R19.7) 04/19/2025 B12 deficiency (ICD- 10 - E53.8) continue b12 qmonth and monitor lab diet 02/16/2025 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) monitor US yearly stable 01/12/2025 Unilateral primary osteoarthritis, left hip (ICD-10 - M16.12) f/u ortho after hip injection 01/02/2025 Dysphagia, unspecifi ed (ICD-10 - R13.10) rec EGD pt to call her ENT - dr santoro - for appt diet 12/28/2024 Body mass index [BMI ] 38.0-38.9, adult (ICD-10 - Z68.38) 12/05/2024 Unilateral primary osteoarthritis, left hip (ICD-10 - M16.12) f/u ortho for injection next month rec weight loss ?LINDSAY needed 11/04/2024 Body mass index [BMI ] 37.0-37.9, adult (ICD-10 - Z68.37) 07/13/2024 Constipation, unspecified (ICD-10 - K59.00) diet fiber rec miralax ?linzess 10/10/2024 Other chronic pain (ICD-10 - G89.29) 09/12/2024 Vitamin D deficiency , unspecified (ICD-10 - E55.9) rec vit D 50k qweek monitor lab 08/10/2024 B12 deficiency (ICD- 10 - E53.8) b12 shot today and qmonth diet/exercise monitor labs 06/15/2024 Abnormal weight gain (ICD-10 - R63.5) diet/exercise oarrs ok rtc 1 month 06/15/2024 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 inflammatory arthritis and tophaceous disease (ICD-10 - E79.0) diet monitor lab - goal <6 08/10/2024 Encounter for immunization (ICD-10 - Z23) 09/12/2024 Pure hypercholesterolemia (ICD-10 - E78.00) rec lipitor 10mg daily diet/exercise uncontrolled 10/10/2024 Vitamin D deficiency , unspecified (ICD-10 - E55.9) uncontrolled but just started on tx - monitor lab and adjust med if needed 12/05/2024 Essential (primary) hypertension (ICD-10 - I10) bp check daily controlled for age but meets criteria for HTN diet/exercise monitor labs meds if worsens 12/28/2024 Obesity, class 2 (ICD-10 - E66.812) 01/02/2025 Left bundle-branch block, unspecified (ICD-10 - I44.7) rec pt f/u cardio soon and yearly bp check daily rec weight loss ?stress test/echo needed due to h/o CHF in past 01/12/2025 Pain in left knee (ICD-10 - M25.562) f/u ortho as directed continue abx 04/19/2025 Other specified symptoms and signs involving the circulatory and respiratory systems (ICD-10 - R09.89) tx based on results 11/28/2024 Itchy skin (ICD-10 - L29.9) 11/28/2024 Gastro-esophageal reflux disease without esophagitis (ICD-10 - K21.9) 04/19/2025 Encounter for screen ing for malignant neoplasm of colon (ICD-10 - Z12.11) 01/12/2025 Other chronic pain (ICD-10 - G89.29) 12/28/2024 Allergic rhinitis, unspecified (ICD-10 - J30.9) continue claritin/flonase rec singulair if s/s worsen rtc prn 12/05/2024 Anesthesia of skin (ICD-10 - R20.0) rec C spine xray and b/l UE EMG ?carpal tunnel vs cervical 10/10/2024 Other constipation (ICD-10 - K59.09) diet continue fiber rec miralax daily rtc prn 09/12/2024 Chronic kidney disea se, stage 3b (ICD-10 - N18.32) monitor f/u neph as directed - I dont think she has seen in awhile rec farxiga 08/10/2024 Morbid (severe) obes ity due to excess calories (ICD-10 - E66.01) diet/exercise due to HTN/etc 06/15/2024 Metabolic syndrome (ICD-10 - E88.810) diet/exercise restart mounjaro rtc 1 month 06/15/2024 Morbid (severe) obes ity due to excess calories (ICD-10 - E66.01) diet/exercise 08/10/2024 Body mass index [BMI ] 38.0-38.9, adult (ICD-10 - Z68.38) 10/10/2024 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, 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) controlled diet uric acid yearly - goal <7 12/05/2024 Paresthesia of skin (ICD-10 - R20.2) see above 01/12/2025 Chronic kidney disea se, unspecified (ICD-10 - N18.9) monitor bmp 04/19/2025 Scratched by cat, initial encounter (ICD-10 - W55.03XA) monitor now and use abx oint daily call if worsens pt already on abx daily for her L knee infection so we will not add another one 11/28/2024 Primary insomnia (ICD-10 - F51.01) 11/28/2024 Abnormal weight gain (ICD-10 - R63.5) 01/12/2025 Anemia in chronic kidney disease (ICD-10 - D63.1) monitor 12/05/2024 Chronic kidney disea se, stage 3b (ICD-10 - N18.32) continue meds rec [facility] rec nephrology 10/10/2024 Pain in right foot (ICD-10 - M79.671) rec xray to r/o stress fx tylenol prn 08/10/2024 Obesity, class 2 (ICD-10 - E66.812) 06/15/2024 Body mass index [BMI ] 38.0-38.9, adult (ICD-10 - Z68.38) 06/15/2024 Chronic kidney disea se, stage 3b (ICD-10 - N18.32) monitor bp control rec referral to nephrology start [facility] 01/12/2025 Rash and other nonspecific skin eruption (ICD-10 - R21) no s/s of zoster monitor avoid itching 11/28/2024 Chronic pain syndrom e (ICD-10 - G89.4) 11/04/2024 Other 12/05/2024 Other rec palliative care as she has multiple medical conditions and multiple meds that need monitored closely rtc 3 months Plan Of Treatment Pending Test Test Name Order Date CMP (COMPLETE METABOLIC PANEL) 4 FERRITIN 08/12/2024 IRON, TOTAL 08/12/2024 LIPID PANEL (CHOL/TRIG/HDL/LDL) 06/15/20 24 URIC ACID 06/15/2024 VITAMIN D, 25 LEVEL (TOTAL) 06/15/2024 DEXA Axial Skeleton (hips, pelvis, spine )* 03/05/2023 MRI Shoulder RT w/o contrast 02/17/2024 EKG w Interp & Report - performed 2024 Echocardiogram 2D M Mode w/ Doppler (jose sure RVSP) 11/27/2023 C DIFF TOX PCR STOOL 07/08/2023 VITAMIN B12 LEVEL AND FOLATE (FOLIC ACID ) 06/15/2024 MAMM SCREEN BILAT TIRSO 3D GLOBAL* 2023 Next Appt Details Provider Name:Conrad batres, 05/19/2025 11:30:00 AM, [address], [place], [address], Insurance Providers Payer Name Payer Address Payer Phone Subscriber Number Group Number Insured Name Patient Relationship to Insured Coverage Start Date Coverage End Date [employer] MEDICARE [address] [place], [place] [id number] Renuka Padron Self - patient is the insured 2 MEDICAID [place] 2ND INS [address] [place], [place] [id number] Renuka Padron Self - patient is the insured 2 Medications Administered Medication Instructions Date of Administration [...] 12/28/2024 1 mL Cyanocobalamin 02/16/2025 1 mL Cyanocobalamin 04/19/2025 1 mL Medical (General) History Medical History [...] L3/4 covid CKD-3b Surgical History Surgery Date(Month/Year) heart cath L knee replacement and 09/2022 5 esophagogastroduodenoscopy 08/02/2018 colonoscopy +hem and diverticulosis - re peat in 5 years per note 08/02/2018 biopsy of thyroid 02/25/2021 R knee replacement bariatric surgery -
--- OUTSIDE RECORDS SUMMARY | 2025-05-18 10:29 | XMS_ITS | Clinical Summary ---
Author Organization [facility] Address [address] [place], [place] [id number] Care Team Providers Care Family Life Educator Name Role Phone Conrad Sosa Primary Care Provider [phone] Italo Ann MD Unavailable [phone] Allergies Active Allergy Reactions Criticality Noted Date [...] N ot on file 09/25/2020 Data from: [email or web address] Last address used for calculation Not [...] - PCV20 or PCV21) 07/19/2023 07/19/2018, 12/18/2011 Advance Directive Discussion 10/19/2024 Influenza Vaccine (#1) 2025 07/19/2018, 2016 RSV Vaccine (1 - 1-dose 75+ series) 2030 Insurance MEDICARE [id number] MEDICAID [place] Care Teams Family Life Educator Relationship Specialty Start Date End Date Conrad Sosa DO PCP - General Family Medicine 06/25/17 Italo Ann MD [address] [id number] Primary Staff Physician Cardiology 01/04/19
--- OUTSIDE RECORDS SUMMARY | 2025-05-18 10:29 | XMS_ITS | Clinical Summary ---
Author Organization [facility] Address [address] [place] [phone] Care Team Providers Care Quarry Extraction Worker Name Role Phone Conrad Sosa DO Primary Care Provider [phone] Active Problems Problem Noted Date Diagnosed Date Obesity: body mass index of 35.0-39.9 04/28/2025 Encounters Date Type Department Care Team Description 04/28/2025 12:00 PM EDT Office Visit [facility] [address] [place] [address] Nick Adam MD Left knee pain, unspecified chronicity (Primary Dx); Left hip pain; History of total knee arthroplasty, left; Primary osteoarthritis of left hip 04/28/2025 11:27 AM EDT - 04/28/2025 11:59 PM EDT Hospital Encounter [facility] [address] [place] [address] Nick Adam MD Discharge Disposition: Home or Self Care 04/28/2025 11:27 AM EDT - 04/28/2025 11:59 PM EDT Hospital Encounter [facility] [address] [place] [address] Nick Adam MD Discharge Disposition: Home or Self Care from Last 3 Months Social History Tobacco Use Types Packs/Day Years Used Date Smoking Tobacco: Never Assessed Comments Unknown Sex and Gender Information Value Date Recorded Sex Assigned at Not on file Legal Sex Female 8:40 PM EDT Gender Identity Not on file Sexual Orientation Not on file Last Filed Vital Signs Vital Sign Reading Time Taken Comments Blood Pressure - - Pulse - - Temperature - - Respiratory Rate - - Oxygen Saturation - - Inhaled Oxygen Concentration - - Weight 95.8 kg (211 lb 3.2 oz) 04/28/2025 12:31 PM EDT Height 160 cm (5' 3 ) 04/28/2025 12:31 PM EDT Body Mass Index 37.41 04/28/2025 12:31 PM EDT Plan of Treatment Health Maintenance Due Date Last Done Comments DEXA SCAN DISCUSSION 1955 HEPATITIS C VIRUS SCREENING 1955 TETANUS 1955 TDAP (ADULT) 1974 CERVICAL CANCER SCREENING DISCUSSION 1976 LIPID SCREENING 1995 MAMMOGRAM SCREENING DISCUSSION 1995 COLORECTAL CANCER SCREENING DISCUSSION 2000 ZOSTER (SHINGLES) VACCINE (1 of 2) 2005 COVID-19 VACCINE ( season) 2024 01/24/2021, 01/02/2021 INFLUENZA VACCINE (#1) 2025 , 08/26/2023, 08/07/2022, Additional history exists RSV VACCINE (1 - 1-dose 75+ series) 2030 PNEUMOCOCCAL VACCINE SERIES Completed 10/2019, 08/02/2019, 07/19/2019, Additional history exists HEP B VACCINE Aged Out No longer brenda bright based on patient's age to complete this topic Procedures Procedure Name Priority Date/Time Associated Diagnosis Comments CBC,PLATELETS Routine 04/28/2025 1:44 PM EDT Left knee pain, unspecified chronicity C REACTIVE PROTEIN Routine 04/28/2025 1: 44 PM EDT Left knee pain, unspecified chronicity SEDIMENTATION RATE, AUTOMATED Routine 04/28/2025 1:44 PM EDT Left knee pain, unspecified chronicity XR KNEE LEFT 3+ VIEWS W/ BILATERAL STANDING 1 VIEW Routine 04/28/2025 11:46 AM EDT Left knee pain, unspecified chronicity XR HIP LEFT 2-3 VIEWS Routine 04/28/2025 11:44 AM EDT Left hip pain from Last 3 Months Results * C REACTIVE PROTEIN (04/28/2025 1:44 PM EDT) Pathologist [facility] C Reactive Protein 4.44 <10.00 mg/L 04/28/2025 5:43 PM EDT [facility] Blood Venipuncture / Unknown 04/28/2025 1:44 PM EDT 04/28/2025 2:31 PM EDT us Nick Adam MD IMMUNOLOGY ORDERABLES Final Re sult [facility] [address] [place] [address] * CBC,PLATELETS (04/28/2025 1:44 PM EDT) Pathologist [facility] WBC Count 8.10 3.99 - 11.19 K/uL 04/28/2025 5:14 PM EDT [facility] RBC Count 4.52 3.91 - 5.04 M/uL 04/28/2025 5:14 PM EDT [facility] Hemoglobin 12.5 11.4 - 15.2 g/dL 04/28/2025 5:14 PM EDT [facility] Hematocrit 39.5 34.9 - 44.3 % 04/28/2025 5:14 PM EDT [facility] Mean Cell Volume 87.4 79.6 - 97.7 fL 04/28/2025 5:14 PM EDT [facility] Mean Cell Hgb 27.7 25.9 - 33.9 pg 04/28/2025 5:14 PM EDT [facility] Mean Cell Hgb Conc 31.6 31.4 - 35.9 g/dL 04/28/2025 5:14 PM EDT [facility] RBC Distribution 14.2 10.8 - 14.9 % 04/28/2025 5:14 PM EDT [facility] Platelet Count 232 150 - 393 K/uL 04/28/2025 5:14 PM EDT [facility] Mean Platelet Volume 11.6 8.5 - 12.2 fL 04/28/2025 5:14 PM EDT [facility] Blood Venipuncture / Unknown 04/28/2025 1:44 PM EDT 04/28/2025 2:32 PM EDT Nick Adam MD HEMATOLOGY ORDERABLES Final Re sult Performing Organization Address City/[facility]/ZIP Co de Phone Number [facility] [address] [address] * SEDIMENTATION RATE, AUTOMATED (04/28/2025 1:44 PM EDT) ESR Westergren 26 <30 mm/hr 04/28/2025 5:54 PM EDT [facility] Blood Venipuncture / Unknown 04/28/2025 1:44 PM EDT 04/28/2025 2:32 PM EDT Nick Adam MD HEMATOLOGY ORDERABLES Final Re sult Performing Organization Address [facility] de Phone Number [facility] [address] [address] * XR KNEE LEFT 3+ VIEWS W/ BILATERAL STANDING 1 VIEW (04/28/2025 11:46 AM EDT) Anatomical Region Laterality Modality knee, MSK Left Diagnostic Radio logy 04/28/2025 12:2 2 PM EDT Impressions 04/28/2025 12:23 PM EDT IMPRESSION: Intact total left knee arthroplasty hardware and appropriate alignment. Posterior heterotopic ossification versus intra-articular loose bodies. Narrative 04/28/2025 12:23 PM EDT EXAM: XR KNEE LEFT 3+ VIEWS W/ BILATERAL STANDING 1 VIEW, 04/28/2025 11:46 AM COMPARISON: No prior studies available for comparison. CLINICAL INDICATIONS: left knee pain RELEVANT CLINICAL HISTORY: M25.562:Left knee pain, unspecified chronicity PA WB, flexed knee (notch), sunrise patella, 45 degree lateral, AP bilateral standing; all with 30mm marking ball; FINDINGS: 4 images obtained. Effusion: There is no joint effusion. Soft Tissue: There is no significant soft tissue swelling. There is posterior heterotopic ossification versus intra-articular loose bodies. Bone: No acute osseous abnormality. Joint: Total left knee arthroplasty hardware is intact and in appropriate alignment. Limited evaluation of the right knee demonstrates intact total right knee arthroplasty hardware and appropriate alignment. TibFib syndesmosis: The proximal tibiofibular syndesmosis is anatomically aligned. Procedure Note Wu Cole MD - 04/28/2025 EXAM: XR KNEE LEFT 3+ VIEWS W/ BILATERAL STANDING 1 VIEW, 04/28/2025 11:46AM COMPARISON: No prior studies available for comparison. CLINICAL INDICATIONS: left knee pain RELEVANT CLINICAL HISTORY: M25.562:Left knee pain, unspecifiedchronicity PA WB, flexed knee (notch), sunrise patella, 45 degree lateral, APbilateral standing; all with 30mm marking ball; FINDINGS: 4 images obtained. Effusion: There is no joint effusion. Soft Tissue: There is no significant soft tissue swelling. There isposterior heterotopic ossification versus intra-articular loose bodies. Bone: No acute osseous abnormality. Joint: Total left knee arthroplasty hardware is intact and inappropriate alignment. Limited evaluation of the right knee demonstrates intacttotal right knee arthroplasty hardware and appropriate alignment. TibFib syndesmosis: The proximal tibiofibular syndesmosis isanatomically aligned. IMPRESSION IMPRESSION: Intact total left knee arthroplasty hardware and appropriate alignment. Posterior heterotopic ossification versus intra-articular loose bodies. Nick Adam MD DIAGNOSTIC IMAGING ORDERABLES Final Result * XR HIP LEFT 2-3 VIEWS (04/28/2025 11:44 AM EDT) Anatomical Region Laterality Modality hip, MSK Left Diagnostic Radio logy 04/28/2025 12:2 1 PM EDT Impressions 04/28/2025 12:22 PM EDT IMPRESSION: Moderate left hip osteoarthritis. Deformity of the left femoral neck/greater trochanter, possibly related to prior trauma. Narrative 04/28/2025 12:22 PM EDT EXAM: XR HIP LEFT 2-3 VIEWS, 04/28/2025 11:44 AM COMPARISON: No prior studies available for comparison. CLINICAL INDICATIONS: Left hip pain RELEVANT CLINICAL HISTORY: M25.552:Left hip pain AP pelvis (WB if tolerated), AP/frog leg lateral; all with 30mm marking ball; FINDINGS: 3 images obtained. Soft Tissue: There is no obvious soft tissue swelling. Bone: Deformity of the left femoral neck/greater trochanter may be related to prior trauma. Hip: The left hip joint is anatomically aligned with moderate degenerative changes. Procedure Note Wu Cole MD - 04/28/2025 EXAM: XR HIP LEFT 2-3 VIEWS, 04/28/2025 11:44 AM COMPARISON: No prior studies available for comparison. CLINICAL INDICATIONS: Left hip pain RELEVANT CLINICAL HISTORY: M25.552:Left hip pain AP pelvis (WB if tolerated), AP/frog leg lateral; all with 30mm markingball; FINDINGS: 3 images obtained. Soft Tissue: There is no obvious soft tissue swelling. Bone: Deformity of the left femoral neck/greater trochanter may be relatedto prior trauma. Hip: The left hip joint is anatomically aligned with moderatedegenerative changes. IMPRESSION IMPRESSION: Moderate left hip osteoarthritis. Deformity of the left femoralneck/greater trochanter, possibly related to prior trauma. Nick Adam MD DIAGNOSTIC IMAGING ORDERABLES Final Result from Last 3 Months Insurance MEDICARE [employer] HMO MEDICAID Care Teams Quarry Extraction Worker Relationship Specialty Start Date End Date Conrad Sosa DO [address] [place] [address] PCP - General Family Medicine 04/28/25
[2025-05-18 10:56] LABS: Albumin Level 3.1 g/dL (3.4-5.0); Anion Gap 11.2; Blood Urea Nitrogen 30.0 mg/dL (7.0-18.0); Calcium 8.9 mg/dL (8.5-10.1); Carbon Dioxide 27.4 mmol/L (21.0-32.0); Chloride 107 mmol/L (98-107); Estimated GFR (African America >60 (>=60 mL/min/1.73m^2); Estimated GFR (Non-African Ame 51 (>=60 mL/min/1.73m^2); Glucose 98 mg/dL (74-106); Potassium 3.6 mmol/L (3.5-5.1); Sodium 142 mmol/L (136-145)
[2025-05-18 11:05] LABS: Hematocrit 38.0 % (36.0-48.0); Hemoglobin 12.1 g/dL (12.0-16.0); Immature Granulocytes Abs Auto 0.02 10^3/uL (0.00-0.03); Immature Granulocytes Pct Auto 0.3 % (0.0-0.5); Lymphocytes Absolute Auto 1.7 10^3/uL (1.2-3.8); Mean Corpuscular HGB Conc 31.8 g/dL (29.9-35.2); Mean Corpuscular Hemoglobin 28.1 pg (26.7-34.0); Mean Corpuscular Volume 88.4 fL (81.0-99.0); Platelet Count 238 10^3/uL (150-450); Red Blood Count 4.30 10^6/uL (4.20-5.40); White Blood Count 6.6 10^3/uL (4.0-11.0)
== END 2025-05-18 10:26 | disposition home or self-care (01) ==
LOC: LAB 10:25
PROVIDERS: PCP Family Medicine
DX: T84.59XD Infection and inflammatory reaction due to other internal joint prosthesis, subsequent encounter (principal)
CPT/HCPCS: 36415; 80069; 85025; 85652; 86140

== ENCOUNTER 2025-07-03 09:50 | Outpatient (OUT) | payer MEDICARE, MEDICAID, SELFPAY ==
--- OUTSIDE RECORDS SUMMARY | 2025-07-03 09:54 | XMS_ITS | Encounter Summary ---
Author Organization [facility] Address [address] [place] [address] Care Team Providers Care Belt Builder Name Role Phone Conrad Sosa DO Primary Care Provider [phone] Italo Ann MD Unavailable [phone] Source Comments In the event this information is protected by the Federal Confidentiality of Alcohol and Drug AbusePatient Records regulations: The Federal rules restrict any use of the information to criminally investigate or prosecute any alcohol or drug abuse patient.[facility] Encounter Details Date Type Department Care Team (Late st Contact Info) Description 2020 [place] [address] Provider, [facility] Medicare Coverage of Physical Exams [...] on filedocumented in this encounter Care Teams Belt Builder Relationship Specialty Start Date End Date Conrad Sosa DO PCP - General Family Medicine 06/25/17 Italo Ann MD [address] [address] Primary Staff Physician Cardiology 01/04/19 documented as of this encounter
--- OUTSIDE RECORDS SUMMARY | 2025-07-03 09:54 | XMS_ITS | Clinical Summary ---
Author Organization [facility] Address [address], [address] [place] [address] Care Team Providers Care Installer Inspector Final Name Role Phone Unavailable Primary Care Provider [...] in the evening. Active Cholecalciferol 1.25 MG (22990 UT) TABS Take 1 capsule by mouth [...] the past 12 months has th e [employer], gas, oil, or water company threatened to [...] any time in the past 12 m [facility], were you homeless or living in a halfway (including now)? No 01/05/2025 Food Insecurity Answer [...] - Risk 60-74 years 1-dose series) 2015 Annual Wellness Visit (Medicare Advantage) 10/19/2024 Flu vaccine (#1) 05/19/2025 08/10/2024, 05/2023, 08/07/2022, Additional history exists COVID-19 Vaccine (3 - season) 2025 01/24/2021, 01/02/2021 GFR test (Diabetes, CKD 3-4, OR last [...] - 145 mmol/L 01/05/2025 3:30 PM EDT [facility] Potassium 4.1 3.7 - 5.3 mmol/L 01/05/2025 3:30 PM EDT [facility] Chloride 109(H) 98 - 107 mmol/L 01/05/2025 3:30 PM EDT [facility] CO2 23 20 - 31 mmol/L 01/05/2025 3:30 PM EDT [facility] Anion Gap 9 9 - 16 mmol/L 01/05/2025 3:30 PM [facility] Glucose 166(H) 74 - 99 mg/dL 01/05/2025 3:30 PM EDT [facility] BUN 19 8 - 23 mg/dL 01/05/2025 3:30 PM EDT [facility] Creatinine 1.0(H) 0.50 - 0.90 mg/dL 01/05/2025 3:30 PM EDT [facility] Est, Glom Filt Rate 60(L) >60 mL/min/1.7 3m2 01/05/2025 3:30 PM EDT [facility] Comment: These results are not [...] 9 - 20 01/05/2025 3:30 PM EDT [facility] Calcium 8.7 8.6 - 10.4 mg/dL 01/05/2025 3:30 PM EDT [facility] Blood BLOOD SPECIMEN / Unknown 01/05/2025 3:30 PM EDT 01/05/2025 3:33 PM EDT us Danika Prince PARTS DATA WRITER - SHELL MOLD BONDER CHEMISTRY ORD ERABLES Final Result [facility] [address] [id number], [facility] [phone] from Last 3 Months or Most Recently Relevant to Health Maintenance Insurance [employer] MEDICARE MEDICAID [place] Advance Directives * Full Code (Latest Code Status on File) Date Activated Date Inactivated Comments 01/05/2025 6:23 AM 01/06/2025 2:44 PM
--- OUTSIDE RECORDS SUMMARY | 2025-07-03 09:54 | XMS_ITS | Clinical Summary ---
Author Organization [facility] Address [address] [place] [id number] Care Team Providers Care Prizer Hand Name Role Phone Conrad Sosa DO Primary Care Provider [phone] Active Problems Problem Noted Date Diagnosed Date Obesity: body mass index of 35.0-39.9 04/28/2025 Encounters Date Type Department Care Team Description 04/28/2025 12:00 PM EDT Office Visit [facility] Out[facility] [address] [place] [address] Nick Adam MD Left knee pain, unspecified chronicity (Primary Dx); Left hip pain; History of total knee arthroplasty, left; Primary osteoarthritis of left hip 04/28/2025 11:27 AM EDT - 04/28/2025 11:59 PM EDT Hospital Encounter Imaging Outpatient [facility] [address] [place] [address] Nick Adam MD Discharge Disposition: Home or Self Care 04/28/2025 11:27 AM EDT - 04/28/2025 11:59 PM EDT Hospital Encounter Imaging Outpatient [facility] [address] [place] [address] Nick Adam MD Discharge Disposition: Home or [...] of 2) 2005 COVID-19 VACCINE ( - season) 2025 01/24/2021, 01/02/2021 INFLUENZA VACCINE (#1) 2025 , [...] REACTIVE PROTEIN (04/28/2025 1:44 PM EDT) Pathologist [facility] C Reactive Protein 4.44 <10.00 mg/L 04/28/2025 5:43 PM EDT [facility] Blood Venipuncture / Unknown 04/28/2025 1:44 PM EDT 04/28/2025 2:31 PM EDT us Nick Adam MD IMMUNOLOGY ORDERABLES Final Re sult [facility] [address] [place] [address] * CBC,PLATELETS (04/28/2025 1:44 PM EDT) Pathologist [facility] WBC Count 8.10 3.99 - 11.19 K/uL 04/28/2025 5:14 PM EDT [facility] RBC Count 4.52 3.91 - 5.04 M/uL 04/28/2025 5:14 PM EDT [facility] Hemoglobin 12.5 11.4 - 15.2 g/dL 04/28/2025 5:14 PM EDT [facility] Hematocrit 39.5 34.9 - 44.3 % 04/28/2025 5:14 PM EDT [facility] Mean Cell Volume 87.4 79.6 - 97.7 fL 04/28/2025 5:14 PM EDT [facility] Mean Cell Hgb 27.7 25.9 - 33.9 pg 04/28/2025 5:14 PM EDT [facility] Mean Cell Hgb Conc 31.6 31.4 - 35.9 g/dL 04/28/2025 5:14 PM EDT [facility] RBC Distribution 14.2 10.8 - 14.9 % 04/28/2025 5:14 PM EDT [facility] Platelet Count 232 150 - 393 K/uL 04/28/2025 5:14 PM EDT [facility] Mean Platelet Volume 11.6 8.5 - 12.2 fL 04/28/2025 5:14 PM EDT [facility] Blood Venipuncture / Unknown 04/28/2025 1:44 PM EDT 04/28/2025 2:32 PM EDT Nick Adam MD HEMATOLOGY ORDERABLES Final Re sult Performing Organization Address City/[facility]/ZIP Co de Phone Number [facility] [address] [address] * SEDIMENTATION RATE, AUTOMATED (04/28/2025 1:44 PM EDT) ESR Westergren 26 <30 mm/hr 04/28/2025 5:54 PM EDT [facility] Blood Venipuncture / Unknown 04/28/2025 1:44 PM EDT 04/28/2025 2:32 PM EDT Nick Adam MD HEMATOLOGY ORDERABLES Final Re sult Performing Organization Address [facility] de Phone Number [facility] [address] [address] * XR KNEE LEFT 3+ VIEWS W/ [...] Final Result from Last 3 Months Insurance Medicare A[employer]na HMO Medicaid Care Teams Prizer Hand Relationship Specialty Start Date End Date Conrad Sosa DO [address] [place] [address] PCP - General Family Medicine 04/28/25
--- OUTSIDE RECORDS SUMMARY | 2025-07-03 09:54 | XMS_ITS | Clinical Summary ---
Author Organization [facility] Address [address] [place] [address] Phone Care Team Providers Care Public Relations Name Role Phone Conrad Sosa DO Primary [...] 09/19/2022 COVID-19 Vaccine (1 - 2023- season) 2025 Influenza Vaccine (#1) 2025 2, 08/19/2020, 08/06/2020, [...] Health Maintenance Results * Echocardiogram (02/08/2020) 02/08/2020 [facility] RADIOLOGY SYSTEM - 02/08/2020 12:00 AM EDT [address], [address] [facility] [place] [place] [address] TRANSTHORACIC ECHOCARDIOGRAM REPORT Patient Name: VILMA Yepez Physician: [id number] Castanon MD Study Date: 02/08/2020 Referring Physician: Martell Castanon MD MRN/PID: [id number] PCP: Conrad Sosa Accession/Order#: [id number] Department Location: [facility] [place] Date of : 1955 Fellow: Gender: F Nurse: Admit Date: Bushel Girl: Jennifer Ceballos RDCS, RVT Height: 160.02 cm CC Report to: Weight: 111.59 kg Study Type: Echocardiogram BSA: 2.11 m2 Blood Pressure: 142 /80 mmHg Diagnosis/ICD: R06.02-Shortness of breath Indication: Right CHF, COPD, Diabetes, HTN, Edema, Forme Smoker, JEREMY, CKD-Stage IV, Morbid Obesity-s/p Gastric Bypass Procedure/CPT: Echo Complete w Full [id number] Study Detail: The following Echo studies were [...] mmHg PIEDV: 1.65 m/s PADP: 15.9 mmHg [id number] Luis Castanon MD Electronically signed on 02/08/2020 at 4:38:48 PM Final Procedure Note Conversion, Syngo - 11/21/[address], [address], [place] [address] TRANSTHORACIC ECHOCARDIOGRAM REPORT Patient Name: VILMA GRAHAM Reading Physician: [id number] Luis Croft Study Date: 02/08/2020 Referring Physician: [id number] Croft MRN/PID: [id number] PCP: Conrad Sosa Accession/Order#: [id number] Department Location: [facility] Date of : 1955 Fellow: Gender: F Nurse: Admit Date: Bushel Girl: Jennifer Ceballos RD,T Height: 160.02 cm CC Report to: Weight: 111.59 kg Study Type: Echocardiogram BSA: 2.11 m2 Blood Pressure: 142 /80 mmHg Diagnosis/ICD: R06.02-Shortness of breath Indication: Right CHF, COPD, Diabetes, HTN, Edema, Forme Smoker, JEREMY, CKD-Stage IV, Morbid Obesity-s/p Gastric Bypass Procedure/CPT: Echo Complete w Full [id number] Study Detail: The following Echo studies were [...] mmHg PIEDV: 1.65 m/s PADP: 15.9 mmHg [id number] Luis Castanon MD Electronically signed on 02/08/2020 at 4:38:48 PM Final us Syngo Conversion CV ECHO PROCEDURES Final Result [facility] RADIOLOGY SYSTEM [facility] [address] from Last 3 Months or Most Recently Relevant to Health Maintenance Insurance MEDICAID AETNA MEDICARE ASSURE MEDICAID AETNA MEDICARE ASSURE Care Teams Public Relations Relationship Specialty Start Date End Date Conrad Sosa DO [address] [place] [address] PCP - General 09/25/22
--- OUTSIDE RECORDS SUMMARY | 2025-07-03 09:54 | XMS_ITS | Clinical Summary ---
Author Organization [facility] Address [address] [place], [place] [id number] Care Team Providers Care Installation And Service Technician Name Role Phone Conrad Sosa Primary Care Provider [phone] Italo Ann MD Unavailable [phone] Allergies Active Allergy Reactions Criticality Noted Date [...] N ot on file 09/25/2020 Data from: https://[email or web address].medicine.[email or web address].edu/. Last address used for calculation Not [...] - 1-dose 75+ series) 2030 Insurance MEDICARE [id number] MEDICAID [place] Care Teams Installation And Service Technician Relationship Specialty Start Date End Date Conrad Sosa DO PCP - General Family Medicine 06/25/17 Italo Ann MD [address] [phone] Primary Staff Physician Cardiology 01/04/19
--- OUTSIDE RECORDS SUMMARY | 2025-07-03 09:54 | XMS_ITS | Encounter Summary ---
Author Organization [facility] Address [address] [place] [address] Care Team Providers Care Back Tender Cloth Printing Name Role Phone Conrad Sosa DO Primary Care Provider [phone] Italo Ann MD Unavailable [phone] Italo Ann MD Unavailable [phone] Source Comments In the event this information is protected by the Federal Confidentiality of Alcohol and Drug AbusePatient Records regulations: The Federal rules restrict any use of the information to criminally investigate or prosecute any alcohol or drug abuse patient.[facility] Encounter Details Date Type Department Care Team (Late st Contact Info) Description 11/14/2019 Patient Msg Cardiology [address] [id number] Italo Ann MD [address] [place] [address] RE: Appointment Cancellation Request Social History Tobacco [...] on filedocumented in this encounter Care Teams Back Tender Cloth Printing Relationship Specialty Start Date End Date Conrad Sosa DO PCP - General Family Medicine 06/25/17 Italo Ann MD [address] [facility] [address] [place] [address] Primary Staff Physician Cardiology 01/04/1901/04 Italo Ann MD [address] [facility] [address] [place] [address] Primary Staff Physician Cardiology 01/04/19 documented as of this encounter
--- OUTSIDE RECORDS SUMMARY | 2025-07-03 09:59 | XMS_ITS | CCD ---
Author Organization [facility] Care Team Providers Care Business Strategist Name Role Phone ITALO ANN Unavailable Unavailab le RAFITA, ITALO VALLADARES Unavailable Unavailab le SOSA, PETER WILLIS Unavailable Unavailab le RAFITA, ITALO VALLADARES Unavailable Unavailab le SOSA, PETER WILLIS Unavailable Unavailab le RAFITA, ITALO VALLADARES Unavailable Unavailab le SOSA, PETER WILLIS Unavailable Unavailab le RAFITA, ITALO VALLADARES Unavailable Unavailab le SOSA, PETER WILLIS Unavailable Unavailab le DHILLON, TROY Unavailable Unavailable DHILLON, TROY Unavailable Unavailable SOSA, PETER Unavailable Unavailable SOSA, PETER Unavailable Unavailable BARBERANUSHA Unavailable Unavailable SOSA, EPTER WILLIS Unavailable Unavailab le BARBER, ANUSHA Unavailable Unavailable SOSA, PETER WILLIS Unavailable Unavailab le Schwerer, Elda E Unavailable Unavailable Unavailable Yuan Romeo Unavailable Reynaldo Trejo Jr. Unavailable [phone] Schwerer, Elda Unavailable Schwerer, Elda Unavailable Schwerer, Elda Unavailable Laquita Medina Unavailable Marva Hunt Unavailable Reynaldo Trejo Unavailable Wes Jason Unavailable Mabel Ortega Unavailable DO Maryjo Elda E Primary Care Provider [phone] SupriyaFRANCKN Antonella Attending Provider DIANE Epps Other Provider SosaDO Peter escobedo Primary Care Provider MD Laquita Medina Attending Provider [phone] Sosa, DO Peter Harrell Attending Provider [facility] Deidra E Emergency Provider Sosa, Peter Julio Cesar Unavailable Gi, NIURKA Daphne Referring Unavailable Traboulssi, Dr. Smith Attending Unavaila ble Sosa, Dr. Peter Willis Primary Care Unava ilable Traboulssi, Dr. Smith Attending Unavaila ble Traboulssi, Dr. Smith Referring Unavaila ble Sosa, Dr. Peter Willis Primary Care Unava ilable NIURKA Bryan Attending Unavailable Gi, NIURKA Lutherna Referring Unavailable Sosa Peter GAMING Primary Care Provider Sosa DO, Peter Willis Primary Care Provider BRUCE, DR LYNN Admitting Unavailable SOSA, DR PETER Harrell Primary Care Unavailable TIMMIS, DR LYNN Attending Unavailable TIMMIS, DR LYNN Consulting Unavailable ZIEBER, DR NELIA Ceballos Consulting Unavailable OMALLEY, DR CHU Admitting Unavailable OMALLEY, DR CHU Attending Unavailable OMALLEY, DR CHU Consulting Unavailable SOSA, DR PETER Harrell Primary Care Unavailable BAKHOUS, AZIZ Admitting Unavailable SOSA, DR PETER Harrell Primary Care Unavailable BAKHOUS, AZIZ Attending Unavailable BAKHOUS, AZIZ Consulting Unavailable WEST, DR ANUSHA Ricketts Consulting Unavailable SOSA, DR PETER Harrell Admitting Unavailable SOSA, DR PETER Harrell Attending Unavailable SCHWEREELDA Ceballos Primary Care Unavailable SOSA, DR PETER Harrell Consulting Unavailable MISC, DR HAYNES Admitting Unavailable SOSA, DR PETER Harrell Primary Care Unavailable MISC, DR HAYNES Attending Unavailable MISC, DR HAYNES Consulting Unavailable AMADORASHI, DR LATIF Admitting Unavailable ELASHI, DR LATIF Attending Unavailable ELASHI, DR LATIF Consulting Unavailable SCHWERER, ELDA Primary Care Unavailable SCHWERER, ELDA Primary Care Unavailable PICHARDO ., GIULIA Consulting Unavailable GRIMALDO ., DR LUCÍA Lau Attending Unavailable GRIMALDO ., DR LUCÍA Lau Admitting Unavailable SPENSER, DR Lucinda Harrell Admitting Unavailable SOSA, DR PETER Harrell Primary Care Unavailable SPENSER, DR Lucinda Harrell Attending Unavailable SPENSER, DR Lucinda Harrell Consulting Unavailable GRIMALDO ., DR LUCÍA Lau Attending Unavailable SOSA, DR PETER Harrell Primary Care Unavailable PICHARDO ., GIULIA Consulting Unavailable GRIMALDO ., DR LUCÍA Lau Admitting Unavailable LAKSHMIPATHY ., NARANA CRISTINA Admitting Asiya vailable SOSA, DR PETER Harrell Primary Care Unavailable LAKSHMIPATHY ., MARLENA Attending Asiya vailable SOSA, DR PETER Harrell Primary Care Unavailable PICHARDO ., GIULIA [...] DR LUCÍA Lau Admitting Unavailable SOSA, DR PETER Harrell Primary Care Unavailable GRIMALDO ., DR LUCÍA Lau Attending Unavailable PAY ., DR COOLEY Admitting Unavailable SOSA, DR PETER Harrell Primary Care Unavailable PAY ., DR COOLEY Attending Unavailable PAY ., DR COOLEY Consulting Unavailable COELLO ., MR VLAD Consulting Unavailable NAVEEN AZAR Consulting Unavailable LUCILA PRABHAKAR Consulting Unavailable WINNIE, DR PETER Harrell Primary Care Unavailable MISC, DR HAYNES Admitting Unavailable MISC, DR HAYNES Attending Unavailable BUNTING, DR CEDEÑO Admitting Unavailable BUNTING, DR CEDEÑO Attending Unavailable SOSA, DR PETER Harrell Primary Care Unavailable SOSA, DR PETER Harrell Primary Care Unavailable MISC, DR HAYNES Admitting Unavailable MISC, DR HAYNES Attending Unavailable SosaDO Peter Primary Care Provider MD Laquita Medina Attending Provider Anusha Barber MD Unavailable Unavailable Glen Bejarano Referring Unavaila Glen Monroy Admitting Unavaila Glen Monroy Attending Unavaila ble Glen Bejarano Attending Unavaila ble SOSA, PETER Referring Unavailable Ignacio MAGANA, Kaur Unavailable Unavailable Richard BRYANT, Anusha Unavailable Unavailable Richard BRYANT, Anusha Unavailable Unavailable Dacnikki BURT-Bashir, Kaur Unavailable Unavailable Dackin IZZY, Kaur Unavailable Unavailable Unavailable Primary Care Provider Unavaillilia Wilkslocatravin BRYANT, Noms Provider Primary Care Provi rosalio ESTRELLA BRYAN Attending Unavailable BRYAN, ESTRELLA S Admitting Unavailable KIMBERLY ELIAS Consulting Unavailable AHMADBONNIE Consulting Unavailable BRYAN, ESTRELLA S Referring Unavailable Sosa Peter BRYANT Primary Care Provider LEAH BARRERA Attending Unavailable DAPHNEY CONSTANTINO Attending Unavailable LEAH BARRERA Attending Unavailable Sosa Peter GAMING Attending Provider [phone] Sosa, Peter Harrell Attending Unavailable Sosa, Peter Harrell Admitting Unavailable Sosa Peter GAMING Primary Care Provider [phone] VLAD WADE Referring Unavailable MARYCRUZ, VLAD D Attending Unavailable SOSA, PETER Primary Care Unavailable MARYCRUZVLAD D Attending Unavailable MARYCRUZ, VLAD D Referring Unavailable SOSA, PETER Primary Care Unavailable MARYCRUZ, VLAD D Attending Unavailable MARYCRUZ, VLAD D Referring Unavailable SOSA, PETER Primary Care Unavailable MARYCRUZ, VLAD D Attending Unavailable MARYCRUZ, VLAD D Referring Unavailable SOSA, PETER Primary Care Unavailable Glen Bejarano Attending Unavaila ble Allergies Allergy Classification Reported Allergen(s) Allergy Type Date of Onset Reaction(s) Facility (20 sources) Latex; Translations: [LATEX] Propensity to adverse reactions to drug (disorder) 11-27-19 15 Wound, Hives, Itching, Rash [facility] Repository (1 source) penicillin; Translations: [PENICILLIN] Drug Allergy 06-30-20 17 AOF [facility] Repository (17 sources) Sulfonamides (Antibiotic); Translations: [SULFA (SULFONAMIDE ANTIBIOTICS)] Propensity to adverse reactions to drug (disorder) 08-29-20 09 Hives, Shortness of breath [facility] Repository (1 source) Adhesive agent; Translations: [adhesive] Propensity to adverse reactions (disorder) 02-19-20 12 AOF [facility] Repository (16 sources) Penicillins; Translations: [Penicillins] Drug allergy (disorder) 08-29-20 09 AOF, Hives, Hives, Rash, Swelling [facility] Repository (1 source) RED RX SINUS TABLET Drug allergy (disorder) 08-29-20 09 AOF [facility] Repository (20 sources) Aspirin; Translations: [Aspirin TABS] Drug Allergy 10-01-20 22 hives, Shortness of breath [facility] [employer] Other (2 sources) Penicillins; Translations: [Penicillins] Allergy to drug (finding) Hives, Itching, Rash, Other formerly [facility] [employer] 250 DO Work Phone: (4 sources) Sulfonamides (Antibiotic); Translations: [Sulfa Drugs] Allergy to drug (finding) Hives, Rash, Itching [facility] Repository (2 sources) Latex Exam Gloves MISC; Translations: [Latex Exam Gloves MISC] Allergy to drug (finding) Hives, Itching, Rash formerly [facility] [employer] 250 DO Work Phone: (20 sources) Furosemide; Translations: [Lasix] Drug Allergy 02-20-20 21 Unknown Repository (20 sources) nabumetone Drug Allergy 01-05-20 24 Unknown, Unknown Reaction [facility] (20 sources) Penicillin G Drug Allergy 01-05-20 24 hives [facility] (20 sources) semaglutide Drug Allergy 01-05-20 24 dizziness, light headed, nausea [facility] (20 sources) [facility]acetamide [facility] [employer] Other (20 sources) ADHESIVES AND TAPES Propensity to adverse reactions 12-29-19 24 Unknown, [facility] (6 sources) Adhesive Tape; Translations: [Adhesive tape] Allergy to substance 11-27-19 15 [facility] (20 sources) Aspirin; Translations: [Aspirin] Drug Allergy 02-25-20 13 Hives, Shortness Of Breath, Rash [facility] (13 sources) Ibuprofen Drug Allergy 10-01-20 22 Other [facility] (2 sources) nickel Drug Allergy 10-01-20 22 Itching [facility] (3 sources) Penicillins Drug Allergy 10-01-20 22 Hives, Shortness of breath, Itching, Rash [facility] (12 sources) Sulfamethoxazole / Trimethoprim Drug Allergy 10-01-20 22 Unknown [facility] (13 sources) traMADol Drug Allergy 10-01-20 22 Unknown [facility] (2 sources) Adhesive Tape-Silicones Drug Allergy 10-01-20 22 Wound [facility] (2 sources) Contact Metal Agent Drug Allergy 10-01-20 22 Itching [facility] (6 sources) bandaids Propensity to adverse reactions rash [employer] Other (19 sources) DULoxetine Drug Allergy 01-05-20 24 Unknown, Unknown Reaction [facility] (12 sources) Nylon Propensity to adverse reactions 03-20-20 23 Itching, Rash [facility] (11 sources) Soap Propensity to adverse reactions 03-19-20 23 Rash [facility] (1 source) nabumetone Drug Allergy 02-20-20 21 [facility] Repository (2 sources) Sulfonamides (Antibiotic) Drug allergy (disorder) 02-25-20 13 [facility] Repository (1 source) Misc-Other; Translations: [Misc-Other] Propensity to adverse reactions (disorder) 07-27-20 17 [facility] Repository (7 sources) Furosemide Drug Allergy 01-05-20 24 [facility] (2 sources) Adhesive Tape; Translations: [Tape] Propensity to adverse reactions (disorder) [facility] Repository (1 source) Benzalkonium Drug Allergy 01-03-20 25 Rash [facility] (11 sources) nickel sulfate Drug Allergy 10-01-20 22 [facility]ching [facility] (11 sources) Sulfonamides (Antibiotic) Propensity to adverse reactions to drug 08-29-20 09 Hives, Shortness Of Breath, Itching, Rash, [facility] (11 sources) Wound Dressing Adhesive Propensity to adverse reactions to drug 10-01-20 22 [employer] (10 sources) Furosemide Drug Allergy 01-05-20 24 Rash [facility] (10 sources) nabumetone Drug Allergy 01-05-20 24 [facility] (10 sources) Penicillins Drug Allergy 08-29-20 09 Hives, Itching, Rash, Shortness of breath [facility] (10 sources) Semaglutide Allergy to substance 01-05-20 24 [facility] (9 sources) Benzalkonium Drug Allergy 01-03-20 25 Rash [facility] Medications Current Medications Medication Drug Class(es) Dates [...] as needed Orally ONCE A DAY Active acetaminophen 325 mg / oxyCODONE hydrochloride 5 mg oral tablet (20 sources) Opioid Agonist Start: 12-29-2023 take 1 tablet by mouth every six hours as needed Start: 10-02-2022 End: 10-02-2022 oxyCODONE-acetaminophen (PER COCET) 5-325 mg per tablet 1 tablet Start: 11-05-2021 Start: 06-23-2021 End: 12-18-2021 take 1 tablet by mouth every six hours as needed for pain Oxycodone-Acetaminophen (Percocet) 5-325 mg tablet Discontinued 1 TAB PO Q6H as needed for pain 10 3 June 23, 2021 December 18, 2021 3:42pm Start: 05-06-2019 End: 12-18-2021 take 1 tablet by mouth once daily as needed for pain Oxycodone-Acetaminophen 5-325 mg Tablet Discontinued 1 - 2 TAB PO Daily as needed for Pain May 06, 2019 12:00am December 18, 2021 3:42pm End: 10-06-2022 oxyCODONE-acetaminophen (PER COCET) 5-325 mg per tablet Take 1-2 tablets by mouth 2 (two) times a day if needed (pain). Max Daily Amount: 4 tablets 0 10/06/2022 Discontinued (Stop Taking at Discharge) albuterol 0.83 mg/ml inhalation solution (20 sources) beta2-Adrenergic Agonist Start: 01-05-2025 take 2 puff(s) by inhalation every six hours as needed for wheezing albuterol sulfate HFA (VENTOLIN HFA) 108 (90 Base) MCG/ACT inhaler Inhale 2 puffs into the lungs every 6 hours as needed for Wheezing 18 g 3 01/05/2025 Active Start: 01-05-2025 Start: 12-29-2023 albuterol (2.5 MG/3ML) 0.083% nebulizer solution Take 2.5 mg by nebulization every 4 (four) hours if needed 12/29/2023 Active Start: 12-29-2023 albuterol (PRO VENTIL) (2.5 MG/3ML) 0.083% nebulizer solution Take 3 mLs by nebulization 4 times daily as needed for Wheezing 120 each 3 01/05/2025 Active Start: 03-19-2023 End: 03-25-2023 take 2.5 mg [...] Every 6 hours PRN, wheezing, Starting on [facility] 10/02/22 at 1416 Start: 05-09-2019 take 1 puff(s) by in halation every four to six hours as needed take 2 puff(s) by in halation in the morning, then take 2 puff(s) by inhalation in the evening, then take 2 puff(s) by inhalation at bedtime albuterol HFA 90 mcg/act inhaler Inhale 2 puffs in the morning and 2 puffs in the evening and 2 puffs before bedtime. Active End: 01-18-2025 take 1 puff(s) by inhalation every four hours albuterol HFA (Ventolin HFA) 90 mcg/act inhaler Inhale 1 puff every 4 (four) hours if needed 01/18/2025 Discontinued (Therapy completed) End: 01-05-2025 albuterol (PROVENTIL) 2.5 MG /0.5ML NEBU nebulizer solution Take 0.5 mLs by nebulization every 4 hours as needed for Wheezing 01/05/2025 Discontinued (LIST CLEANUP) take 2 puff(s) by in halation every six hours as needed for wheezing albuterol sulfate HFA (VENTOLIN HFA) 108 (90 Base) MCG/ACT inhaler Inhale 2 puffs into the lungs every 6 hours as needed for Wheezing Suspended take 2 puff(s) by in halation four times daily as needed Ventolin HFA 108 (90 Base) MCG/ACT 2 puffs as needed Inhalation up to 4 times/day Active take 1 [IU] by inhal ation every four to six hours as needed Albuterol Sulfate 1.25 MG/3ML Inhalation Nebulization Solution USE 1 UNIT DOSE IN NEBULIZER EVERY 4 TO 6 HOURS NEEDED. Quantity: 0 Refills: 0 Ordered: 01-Oct-2021 DO Active Albuterol Sulfate (2.5 MG/ 3 ML) 2.5 MG/3ML 0.083% Nebulization Solution (20 sources) Albuterol Sulfat e (2.5 MG/ 3 ML) 2.5 MG/3ML 0.083% Nebulization Solution 3ml Inhalation 4 times a day Active alendronic acid 70 mg oral tablet (20 sources) Bisphosphonate Start: 05-06-2019 take 1 tablet by troy every week alendronate (Fos amax) 70 MG tablet Take 70 mg by mouth every 7 (seven) days Active azithromycin 250 mg oral tab let (8 sources) Macrolide Antimicrobial Start: 11-19-2021 Start: 11-19-2021 baclofen 10 mg oral tablet (15 sources) gamma-Aminobutyric Acid-ergic Agonist Start: 01-25-2022 take 1 tablet by mouth twice daily benzonatate 100 mg oral capsule (1 source) Non-narcotic Antitussive Start: 10-27-2024 take 1 capsule by mouth three times daily as needed for cough bumetanide 1 mg oral tablet (20 sources) Loop Diuretic Start: 01-05-2025 Start: 09-30-2022 End: 03-25-2023 take 1 mg by mouth twice daily 1 mg, oral, 2 times clay ly, First dose on Thu03/20/23 at 0900 Regarding Diuretics - Hold if SBP < 110 ; Plan to start POD#1 Start: 04-10-2021 take 2 tablets by mo ut every twelve hours Bumetanide 0.5 MG 2 tablet Orally TWICE A DAY for 90 days noon Mar, Active Start: 05-06-2019 End: 12-29-2023 take 1 tablet by mouth twice daily Bumetanide 0.5 mg Tablet Discontinued 0.5 MG PO Twice daily May 06, 2019 12:00am December 29, 2023 10:15am cholecalciferol 0.025 mg ora l capsule (20 sources) Vitamin D Start: 12-29-2023 take 1 capsule by mo ut once daily Start: 05-06-2019 End: 04-16-2022 take 1 capsule by mouth once daily Cholecalciferol (Vitamin D3) (Vitamin D3) 2,000 unit Capsule Discontinued 2000 UNIT PO Daily May 06, 2019 12:00am April 16, 2022 1:50pm take 1 capsule by mo ut every week Cholecalciferol 1.25 MG (18301 UT) TABS Take 1 capsule by mouth once a week Mondays Suspended Vitamin D 1000 U NIT CAPS TAKE 1 CAPSULE Daily Quantity: 0 Refills: 0 Ordered: 18-Dec-2021 DO Active ciprofloxacin 500 mg oral tablet (11 sources) Quinolone Antimicrobial End: 01-05-2025 take 1 tablet by mouth in the morning ciprofloxacin (Cipro) 500 MG tablet Take 500 mg by mouth in the morning and 500 mg before bedtime. Active clindamycin 300 mg oral capsule (1 source) Lincosamide Antibacterial Start: 10-04-2022 End: 10-14-2022 take 1 capsule by mouth three times daily clindamycin (CLEOCIN) 300 mg capsule Take 1 capsule (300 mg total) by mouth 3 (three) times a day for 10 days. 30 each 0 10/04/2022 10/14/2022 Active docusate sodium 100 mg oral capsule (14 sources) Start: 01-05-2025 Start: 03-19-2023 End: 03-25-2023 docusate sodium (COLACE) cap hayden 100 mg doxycycline hyclate 100 mg oral capsule (14 sources) Tetracycline-class Drug Start: 03-16-2025 doxycy mike (Vibramycin) 100 MG capsule 03/16/2025 Active Start: 02-27-2022 take 1 capsule by mo [facility] every twelve hours Doxycycline Hyclate 100 MG 1 capsule Orally Twice a day for 10 day(s) February, Active Start: 02-26-2022 End: 04-16-2022 take 1 tablet by mouth twice daily Doxycycline Hyclate 100 mg tablet Discontinued 100 MG PO Twice daily 07 08February 26, 2022 12:00am April 16, 2022 1:50pm erythromycin ethylsuccinate 400 mg oral tablet (11 sources) Macrolide, Macrolide Antimicrobial End: 01-05-2025 take 1 tablet by mouth in the morning erythromycin ethylsuccinate (E.E.S.) 400 MG tablet Take 400 mg by mouth in the morning and 400 mg before bedtime. Active ferrous sulfate 325 mg oral tablet (20 sources) Start: 05-09-2019 take 1 tablet by mouth once daily as needed take 1 tablet by mouth once dante y Ferrous Sulfate 324 (65 Fe) MG Oral Tablet Delayed Release Take 1 tablet daily Quantity: 0 Refills: 0 Ordered: 18-Dec-2021 DO Active [facility] as needed Ferrous Sulfate 325 (65 Fe) MG 1 tablet Orally Once a day prn Active Fiber (20 sources) take 1 tablet by troy th twice daily as needed Fiber - 1 tablet Orally two times a day prn Active take 1 tablet by mouth twice clay ly Fiber - 1 tablet Orally two times a day Active fluticasone propionate 0.05 mg/actuat metered dose nasal spray (20 sources) Corticosteroid Start: 01-05-2025 1 spray, Each Nostril, 2 times daily, First dose on [place] 01/05/25 at 1430, Until Discontinued, Pharmacists should automatically interchange the frequency from daily or QHS to Daily PRN when Flonase is ordered from a patient's home medication list. If it is not ordered from the home medication list, then do not change the ordered frequency. Start: 12-29-2023 take 50 ug nasal rou te once daily take 50 ug nasal rou te once daily Flonase Allergy Relief 50 MCG/ACT 1-2 spray in each nostril Nasally Once a day for 30 day(s) Active take 50 ug nasal rou te once daily Flonase Allergy Relief 50 MCG/ACT [...] replace cap. 0 Active take 1 spray(s) nasa l route once daily Flonase Allergy Relief 50 MCG/ACT 1 spray in each nostril Nasally Once a day Active hydrOXYzine hydrochloride 10 mg oral tablet (20 sources) Antihistamine Start: 05-06-2019 End: 12-29-2023 take 1-2 tablets by mouth three times daily as needed take 1-2 tablets by mouth every eight [...] once daily for 30 day(s) May, Active Magnesium (20 sources) Start: 04-16-2022 take 1 tablet by mouth once daily Start: 04-16-2022 take 1 tablet by mouth once da taylor Magnesium 200 mg Tablet Active 200 MG PO Daily April 15, 2022 11:00pm Start: 04-16-2022 take 200 mg by mouth once dante y Magnesium Active 200 MG PO Daily April 16, 2022 12:00am take 1 capsule by mo uth once daily Magnesium 200 MG 1 capsule with a meal Orally Once a day Active Magnesium Active meropenem 1000 mg injection (1 source) Penem Antibacterial Start: 03-24-2023 End: 05-05-2023 meropenem (MERREM) 1 gram injection Infuse 2 g into a venous catheter every 8 (eight) hours. [facility]CF Nursing Instructions: 1)Picc Care 2)Qmon CBC,SR,Creat,CRP, fax to Dr. Bryan [phone] 3)IV ATB for 42 days 4)Call Dr. Bryan for F/C/S, N/V/D, rash, 5)F/U with Dr Bryan in 4-5 weeks 6) Call if released before completing IV therapy. 252 g 0 03/24/2023 05/05/2023 Active methylPREDNISolone 4 mg oral tablet (1 source) Corticosteroid Start: 10-27-2024 take 1 tablet by mouth once mounjaro 7.5 mg/0.5ml solution pen-injector (1 source) Start: 08-04-2022 Mounjaro 7.5 MG/0.5ML 1 injector Subcutaneous weekly for 28 days Jul, Active oxyCODONE hydrochloride 5 mg oral tablet (8 sources) Opioid Agonist Start: 01-05-2025 Start: 03-20-2023 End: 03-25-2023 oxyCODONE (ROXICODONE) immed [...] mg 40 tablet 0 10/02/2022 10/09/2022 Active take 1 capsule by mo uth every four hours as needed for pain oxyCODONE 5 MG capsule Take 1 capsule by mouth every 4 hours as needed for Pain. Suspended End: 03-25-2023 take 1 capsule by mouth once daily oxyCODONE (OXY-IR) 5 mg immediate release capsule Take 1-2 capsules (5-10 mg total) by mouth 1 (one) time each day if needed (pain). 0 03/25/2023 Discontinued (Stop Taking at Discharge) Oxygen (1 source) Start: 12-29-2023 Oxygen Active 0 .ROUTE December 29, 2023 12:00am 2 liters DME [facility] Oxygen 2 liters (20 sources) Oxygen 2 liters continuous prn Active Oxygen 2 liters continuous Active Oxygen unit (2 sources) Start: 12-29-2023 Oxygen unit Ac tive 0 .Route December 29, 2023 12:00am 2 liters DME [facility] Start: 12-29-2023 Oxygen unit Ac tive 0 .Route December 28, 2023 11:00pm 2 liters DME [facility] phenazopyridine hydrochloride 95 mg oral tablet (12 sources) Start: 05-28-2022 take 2 tablets by mouth every eight hours Phenazopyridine HCl 95 MG 2 tablets after meals Orally Three times a day May, Active Start: 05-27-2022 End: 10-27-2024 take 1 tablet by mouth three times daily as needed for pain Phenazopyridine (Azo Urinary Pain Relief) 95 mg tablet Discontinued 95 MG PO Three times daily as needed for pain May 27, 2022 12:00am October 27, 2024 1:19pm Start: 05-27-2022 take 1 tablet by troy th three times daily Phenazopyridine (Azo Urinary Pain Relief) 95 mg tablet Active 95 MG PO Three times daily May 27, 2022 12:00am phentermine hydrochloride 37.5 mg oral capsule (4 sources) Sympathomimetic Amine Anorectic End: 01-18-2025 take 1 capsule by mouth before mealtime phentermine 37.5 MG capsule Take 37.5 mg by mouth in the morning. Take before meals. 01/18/2025 Discontinued (Therapy completed) potassium chloride 10 meq extended release oral tablet (5 sources) Start: 07-25-2021 take 1 tablet by mouth every twenty-four hours Potassium Chloride ER 10 [...] 11-19-2021 Start: 11-19-2021 pregabalin 100 mg oral capsu le (8 sources) Start: 12-29-2023 take 1 capsule by mo uth once daily take 1 capsule by mo uth every twenty-four hours Pregabalin 100 MG 1 capsule Orally Once a day Active no122/iron/folic ac id ( MULTI ORAL) (2 sources) take 1 tablet by mouth every week no122/iron/folic acid ( MULTI ORAL) Take 1 tablet by mouth 1 (one) time per week. 0 Active take 1 tablet by mouth once dante y no122/iron/folic acid ( MULTI ORAL) Take 1 tablet by mouth 1 (one) time each day. 0 Active Vit-Iron Fum-Folic Ac (Prena-Tab) 65 mg iron- 1 mg Tablet (7 sources) Start: 04-16-2022 take 1 tablet by troy th once daily before mealtime Start: 04-16-2022 take 1 tablet by troy th once daily before mealtime Vit-Iron Fum-Folic Ac (Prena-Tab) 65 mg iron- 1 mg Tablet Active 1 TAB PO Daily April 15, 2022 11:00pm Start: 04-16-2022 take 1 tablet by troy th once daily before mealtime Vit-Iron Fum-Folic Ac (Prena-Tab) 65 mg iron- 1 mg Tablet Active 1 TAB PO Daily April 16, 2022 12:00am Vitamin (7 sources) Vitamin Active Vitamin 27-0.8 MG (19 sources) take 1 tablet by troy th once daily Vitamin 27-0.8 MG 1 tablet Orally Once a day Active Tirzepatide (3 sources) Start: 12-29-2023 inject 1 mg by subcutaneous injection every week Start: 12-29-2023 inject 1 mg by subcu taneous injection every week Tirzepatide 7.5 mg/0.5 mL pen injector Active MG SUBCUT December 28, 2023 11:00pm FreeTextSi injector Subcutaneous weekly; Note: Source Status: Taking; Refills: 1; Qty: 2 Milliliter; Provider: Maya Dunn Start: 12-29-2023 inject 1 mg by subcu taneous injection every week Tirzepatide Active MG SUBCUT December 29, 2023 12:00am FreeTextSi injector Subcutaneous weekly; Note: Source Status: Taking; Refills: 1; Qty: 2 Milliliter; Provider: Maya Dunn tirzepatide (Mounjaro) 7.5 mg/0.5 mL pen injector (1 source) inject 0.5 mL by subcutaneous injection every week tirzepatide (Mounjaro) 7.5 mg/0.5 mL pen injector Inject 0.5 mL (7.5 mg total) under the skin 1 (one) time per week. Mondays 0 Active valACYclovir 1000 mg oral tablet (19 sources) Herpesvirus Nucleoside Analog DNA Polymerase Inhibitor, Herpes Simplex Virus Nucleoside Analog DNA Polymerase Inhibitor, Herpes Zoster Virus Nucleoside Analog DNA Polymerase Inhibitor Start: 12-29-19 valACYclovir (Valtrex) 1 g tablet Take 500 mg by mouth Daily 12/29/2023 Active Start: 12-29-2023 take 1 tablet by troy th once daily End: 01-05-2025 take 1 tablet by mouth once daily valACYclovir (VALTREX) 500 MG tablet Take 1 tablet by mouth daily 01/05/2025 Discontinued take 1 tablet by troy th every twenty-four hours Valtrex 1 GM 1 tablet Orally Once a day Active take 1 tablet by troy th every twenty-four hours Valtrex 1 GM 1 tablet Orally Once a day Active Vitamin B 12 500 MCG (4 sources) take 1 tablet by mouth once daily Vitamin B 12 500 MCG 1 tablet Orally Once a day Active vitamin b12 1 mg/ml injectable solution (15 sources) Vitamin B12 Start: inject 1000 ug by subcutaneous injection every 30 days cyanocobalamin (Vitamin B-12) 1000 MCG/ML injection Inject 1,000 mcg under the skin every 30 (thirty) days 01/20/2024 Active Start: 12-29-2023 take 1 tablet by troy th once daily Start: 12-29-2023 take 1 tablet by troy th once daily Cyanocobalamin (Vitamin B-12) 500 mcg tablet Active 1 TAB PO Daily December 28, 2023 11:00pm FreeTextSi tablet Orally Once a day; Note: Source Status: Taking; Provider: Agueda Valera ( ) Start: 12-29-2023 take 1 tablet by troy th once daily Cyanocobalamin (Vitamin B-12) Active 1 TAB PO Daily December 29, 2023 12:00am FreeTextSi tablet Orally Once a day; Note: Source Status: Taking; Provider: Agueda Valera ( ) cyanocobalamin 1 000 MCG/ML injection Inject 1 mL into the muscle every 30 days Suspended take 1 tablet by troy th every twenty-four hours Vitamin B 12 500 MCG 1 tablet Orally Once a day Active Vitamin D3 1000 UNIT (20 sources) take 1 tablet by mouth once dante y Vitamin D3 1000 UNIT 1 tablet Orally Once a day Active Completed/Discontinued Medications Medication Drug Class(es) Dates Sig (Normalized) Sig (Original) acetaminophen 325 mg oral tablet (20 sources) Start: 01-05-2025 End: 01-05-2025 take 4000 mg by mouth every twenty-four hours 650 mg, Oral, ONCE, 1 dose, On [facility] 01/05/25 at 0645, Maximum dose of acetaminophen is 4000 mg from all sources in 24 hours., Pre-op (day of surgery) Start: 03-19-2023 End: 03-25-2023 acetaminophen (TYLENOL) tabl et 975 mg Start: 03-19-2023 End: 03-25-2023 take [...] capsules by m outh every six hours allopurinol 100 mg oral tablet (20 sources) Xanthine Oxidase Inhibitor Start: 01-05-2025 take 200 mg by mouth once daily 200 mg, Oral, DAILY, First dose on [facility] 01/05/25 at 1345, Until Discontinued Start: 05-06-2019 take 2 tablets by mo uth once daily Start: 05-06-2019 End: 03-25-2023 take 200 mg by mouth once daily Allopurinol Active 200 MG PO Daily May 06, 2019 12:00am take 1 tablet by troy th in the morning allopurinol (Zyloprim) 100 MG tablet Take 100 mg by mouth in the morning and 100 mg before bedtime. Active aluminum hydroxide 40 mg/ml / magnesium hydroxide 40 mg/ml / simethicone 4 mg/ml oral suspension (2 sources) Start: 03-19-2023 End: 03-25-2023 aluminum-magnesium hydroxide-simethicone (MAALOX) 200-200-20 mg/5 mL suspension 30 mL Start: 10-02-2022 End: 10-06-2022 aluminum-magnesium hydroxide -simethicone (MAALOX) 200-200-20 mg/5 mL suspension 30 mL apixaban 5 mg oral tablet (20 sources) Factor Xa Inhibitor Start: 06-05-2021 End: [...] mg po BID take 1 tablet by troy th twice daily Eliquis 2.5 MG 1 [...] days Jun, Active Start: 07-11-2020 Start: 05-09-2019 End: 01-05-2024 take 1 puff(s) by inhalation twice daily Budesonide-Formoterol (Symbicort) 160-4.5 mcg/actuation Hfa Aerosol Inhaler Discontinued 2 PUFF INHALATION Twice daily May 08, 2019 11:00pm January 05, 2024 1:29pm Start: 05-09-2019 End: 01-05-2024 take 1 puff(s) by inhalation twice daily Budesonide-Formoterol (Symbicort) 160-4.5 mcg/actuation Hfa Aerosol Inhaler Discontinued 2 PUFF INHALATION Twice daily May 09, 2019 12:00am January 05, 2024 2:29pm Start: 05-09-2019 take 1 puff(s) by in halation twice daily Budesonide-Formoterol (Symbicort) 160-4.5 mcg/actuation Hfa Aerosol Inhaler Active 2 PUFF INHALATION Twice daily May 09, 2019 12:00am End: 01-05-2025 take 2 puff(s) by inhalation twice daily budesonide-formoterol (SYMBICORT) 160-4.5 MCG/ACT AERO Inhale 2 puffs into the lungs 2 times daily 01/05/2025 Discontinued (LIST CLEANUP) take 2 puff(s) by mo [facility] twice daily budesonide-formoteroL (SYMBICORT) 160-4.5 mcg/actuation inhaler Inhale 2 puffs 2 (two) times a day. Rinse mouth with water after use to reduce aftertaste and incidence of candidiasis. Do not swallow. 0 Active Symbicort 160-4. 5 MCG/ACT Inhalation Aerosol USE DIRECTED. Quantity: 0 Refills: 0 Ordered: 01-Oct-2021 DO Active calcium chloride 0.0014 meq/ ml / potassium chloride 0.004 meq/ml / sodium chloride 0.103 meq/ml / sodium lactate 0.028 meq/ml injectable solution (2 sources) Start: 03-19-2023 End: 03-19-2023 lactated Ringer's infusion Start: 10-02-2022 End: 10-06-2022 take 100 mL intravenously every hour 100 mL/hr, intravenous, Continuous, Starting on Thu10/02/22 at 1445 calcium polycarbophil 625 mg oral tablet (12 sources) Start: 01-05-2025 take 625 mg by mouth twice daily 625 mg, Oral, 2 TIMES DAILY, First dose on Thu01/05/25 at 1400, Until Discontinued take 1 tablet by troy th every eight hours polycarbophil (FiberCon) 625 MG tablet T wilber 625 mg by mouth every 8 (eight) hours Active ceFAZolin (ANCEF) 2 gram/20 mL IV syringe [...] doses, Recovery & On Unit Indication: Prophylaxis-Surgical cefdinir 300 mg oral capsule (10 sources) Cephalosporin Antibacterial Start: 01-05-2024 End: 01-18-2025 take 1 mg by mouth once daily Cefdinir 300 mg capsule Discontinued MG PO Daily January 05, 2024 12:00am October 27, 2024 1:33pm FreeTextSig: as directed Orally daily; Note: Source Status: Takingon for 6 months; Provider: Agueda Valera ( ) Start: 01-05-2024 take 1 mg by mouth once daily Cefdinir Active MG PO Daily January 05, 2024 12:00am FreeTextSig: as directed Orally daily; Note: Source Status: Takingon for 6 months; Provider: Agueda Valera ( ) cephalexin 500 mg oral capsule (15 sources) Cephalosporin Antibacterial Start: 10-02-2022 End: 10-03-2022 take 1 capsule by mouth three times daily cephalexin (KEFLEX) 500 mg capsule Take 1 capsule (500 mg total) by mouth 3 (three) times a day for 3 doses. 3 capsule 0 10/02/2022 10/03/2022 Start: 12-22-2020 End: 04-29-2021 take 1 capsule by mouth every six hours Cephalexin 500 mg capsule Discontinued 500 MG PO Q6H 28 7 December 22, 2020 1:00am April 29, 2021 10:35pm Start: 12-22-2020 End: 04-29-2021 take 1 capsule by mouth four times daily Cephalexin 500 mg capsule Discontinued 500 MG PO Four times daily 40 December 22, 2020 1:00am April 29, 2021 10:35pm cetirizine hydrochloride 10 mg oral tablet (12 sources) Histamine-1 Receptor Antagonist Start: 01-05-2025 End: 01-05-2025 take 10 mg by mouth once daily 10 mg, Oral, DAILY, First dose on Thu01/05/25 at 1430, Until Discontinued take 1 tablet by mouth in the mo rning cetirizine (ZyrTEC) 10 MG tablet Take 10 mg by mouth in the morning. Active cloNIDine hydrochloride 0.1 mg oral tablet [...] sources) P2Y12 Platelet Inhibitor Start: 09-04-2021 End: 10-27-2024 take 1 tablet by mouth once daily Clopidogrel 75 mg Tablet Discontinued 75 MG PO Daily February 28, 2022 12:59pm October 27, 2024 1:34pm codeine phosphate 2 mg/ml / guaiFENesin 20 mg/ml oral solution (1 source) Opioid Agonist Start: 01-06-2025 take 5 mL by mouth every six hours as needed 5 mL, Oral, EVERY 6 HOURS PRN, Starting on Thu01/06/25 at 0650, Until Discontinued, Cough, Congestion cyclobenzaprine hydrochloride 10 mg oral tablet (12 sources) Muscle Relaxant Start: 10-02-2022 End: 01-02-2025 cyclobenzaprine (FLEXERIL) tablet 10 mg 12 hr dextromethorphan hydrobromide 30 mg / guaiFENesin 600 mg extended release oral tablet (1 source) Uncompetitive U-jpihyx-O-[place]part[place] te Receptor Antagonist, Sigma-1 Agonist Start: 01-06-2025 take 1 tablet by mouth twice daily 1 tablet, Oral, 2 TIMES DAILY, First dose on 3/21/25 at 0900, Until Discontinued, Do not crush or break. diazePAM 5 mg oral tablet (12 sources) Benzodiazepine Start: 12-29-2023 End: 01-18-2025 take 1 tablet by mouth once daily as needed Diazepam 5 mg tablet Discontinued 5 MG PO Daily December 29, 2023 12:00am October 27, 2024 1:35pm FreeTextSi tablet as needed Orally Once a day; Note: Source Status: Taking; Provider: Agueda Valera ( ) dimenhyDRINATE 50 mg oral tablet (1 source) Start: 01-05-2025 End: 01-05-2025 take 1 dose by mouth once daily 50 mg, Oral, ONCE, 1 dose, On [facility] 01/05/25 at 0645, Pre-op (day of surgery) diphenhydrAMINE (3 sources) Histamine-1 Receptor Antagonist Start: 03-19-2023 End: 03-25-2023 take 25 mg intravenously every six hours as needed 25 mg, intravenous, Every 6 hours PRN, itching, Starting on [facility] 03/19/23 at 1631 Start: 03-19-2023 End: 03-25-2023 diphenhydrAMINE (BENADRYL) c apsule 25 mg Start: 10-05-2022 End: 10-06-2022 take 1 capsule by mouth every six hours as needed diphenhydrAMINE (BENADRYL) capsule 25 mg DULoxetine 30 mg delayed release oral capsule (8 sources) Serotonin and Norepinephrine Reuptake Inhibitor Start: 12-29-2023 End: 01-05-2024 take 1 capsule by mouth once daily Duloxetine 30 mg capsule,delayed release(DR/EC) Discontinued 30 MG PO Daily December 29, 2023 12:00am January 05, 2024 2:27pm FreeTextSi capsule Orally Once a day; Note: Source Status: Taking; Provider: Agueda Valera ( ) take 1 capsule by [facility] every twenty-four hours DULoxetine HCl 30 MG 1 capsule Orally Once a day Active 1 ml fentaNYL 0.05 mg/ml injection (3 sources) Opioid Agonist Start: 03-19-2023 End: 03-19-2023 fentaNYL (SUBLIMAZE) injection 50 mcg Start: 10-02-2022 End: 10-02-2022 fentaNYL (SUBLIMAZE) injecti on 25 mcg Start: 10-02-2022 End: 10-02-2022 fentaNYL (SUBLIMAZE) injecti on 50 mcg fluconazole 100 mg oral tablet (20 sources) Azole Antifungal Start: 06-05-2021 End: 04-16-2022 take 1 tablet by mouth once daily as needed Fluconazole 100 mg Tablet Discontinued 100 MG PO Daily June 05, 2021 12:00am April 16, 2022 1:52pm as needed 60 actuat fluticasone propionate 0.25 mg/actuat / salmeterol 0.05 mg/actuat dry powder inhaler (12 sources) Corticosteroid, beta2-Adrenergic Agonist Start: 01-05-2024 End: 10-27-2024 Fluticasone Propion-Salmeterol (Advair Diskus) 250-50 mcg/dose blister with device Discontinued 1 INH INHALATION Twice daily 60 30 January 05, 2024 12:00am October 27, 2024 1:35pm Start: 12-29-2023 End: 10-27-2024 take 1 puff(s) by inhalation three times daily Fluticasone Propion-Salmeterol 232-14 mcg/actuation aerosol powdr breath activated Discontinued 1 PUFF INHALATION Three times daily December 29, 2023 12:00am October 27, 2024 1:35pm FreeTextSi puff Inhalation Twice a day; Note: Source Status: Taking; Provider: Agueda Valera ( ) Start: 11-03-2023 take 2 puff(s) by in halation twice daily Advair HFA 115-21 MCG/ACT 2 puffs Inhalation Twice a day for 30 days Oct, Active take 1 puff(s) by in halation twice daily Fluticasone-Salmeterol 232-14 MCG/ACT 1 puff Inhalation Twice a day Active gabapentin 300 mg oral capsule (20 sources) Anti-epileptic Agent Start: 01-05-2025 take 300 mg by mouth three times daily 300 mg, Oral, 3 TIMES DAILY, First dose on Thu01/05/25 at 1400, Until Discontinued Start: 01-05-2025 take 1 dose by mouth once dante y 300 mg, Oral, ONCE, 1 dose, On [facility] 01/05/25 at 0645, Pre-op (day of surgery) Start: 03-19-2023 End: 03-25-2023 take 300 mg by mouth three times daily 300 mg, oral, 3 times daily, First dose on [facility] 03/19/23 at 2100 Start: 10-02-2022 End: 10-06-2022 take 300 mg by mouth three times daily 300 mg, oral, 3 times daily, First dose on [facility] 10/02/22 at 2100 Start: 06-11-2021 End: 06-11-2021 take 1 tablet by mouth three times daily Gabapentin 300 mg Tablet Discontinued 300 MG PO Three times daily June 11, 2021 12:00am June 11, 2021 2:21pm Start: 04-29-2021 take 2 capsules by m outh three times daily glucagon (rdna) 1 mg injection (1 source) [...] 1-6 Units lidocaine 0.05 mg/mg medicated patch (7 sources) Antiarrhythmic, Amide Local Anesthetic Start: 01-25-2022 End: 04-16-2022 apply 1 dose topically once daily Lidocaine 5 % adhesive patch,medicated Discontinued 1 PATCH TOPICAL Daily January 25, 2022 12:00am April 16, 2022 1:53pm leave on most painful area for up to 12 hrs lisinopril 40 mg oral tablet (7 sources) Angiotensin Converting Enzyme Inhibitor Start: 05-06-2019 End: 04-29-2021 take 1 tablet by mouth once daily Lisinopril 40 mg Tablet Discontinued 40 MG PO Daily May 06, 2019 12:00am April 29, 2021 10:36pm loratadine 10 mg oral tablet (20 sources) take 1 tablet by mouth once daily loratadine (CLARITIN) 10 MG tablet Take 1 tablet by mouth daily Suspended magnesium hydroxide 80 mg/ml oral suspension (2 sources) Start: 03-20-2023 End: 03-25-2023 magnesium hydroxide (MILK OF MAGNESIA) 400 mg/5 mL suspension 30 mL Start: 10-02-2022 End: 10-06-2022 magnesium hydroxide (MILK OF MAGNESIA) 400 mg/5 mL suspension 30 mL magnesium oxide 400 mg oral tablet (6 sources) Start: 01-05-2025 take 400 mg by mouth once daily 400 mg, Oral, DAILY, First dose on [facility] 01/05/25 at 1345, Until Discontinued Start: 03-19-2023 End: 03-25-2023 take 400 mg by mouth once daily 400 mg, oral, Nightly, First dose on [facility] 03/19/23 at 2100 take 500 mg by mouth once daily MAGNESIUM OXIDE PO Take 500 mg by mouth nightly Suspended Magnesium Oxide 400 (241.3 Mg) MG TABS [...] at 2100 Start: 04-29-2021 End: 03-18-2023 take 1 tablet by mouth twice daily Mounjaro 2.5 MG/0.5ML Subcutaneous Solution Pen-injector (1 source) Mounjaro 2.5 MG/ 0.5ML Subcutaneous Solution Pen-injector as directed Quantity: 0 Refills: 0 Ordered: 25-Sep-2022 DO Active Naloxone (2 sources) Opioid Antagonist Start: 03-19-2023 End: 03-25-2023 naloxone (NARCAN) injection 0.4 mg Start: 10-02-2022 End: 10-06-2022 naloxone (NARCAN) injection 0.4 mg nitrofurantoin, macrocrystals 25 mg / nitrofurantoin, monohydrate 75 mg oral capsule (12 sources) Nitrofuran Antibacterial Start: 05-27-2022 End: 10-27-2024 take 1 capsule by mouth twice daily at mealtime Nitrofurantoin Monohyd/M-Cryst (Macrobid) 100 mg capsule Discontinued 100 MG PO Twice daily 01 05May 27, 2022 12:00am October 27, 2024 1:18pm must administer with a meal/food Start: 05-27-2022 take 1 capsule by mo [facility] twice daily at mealtime Nitrofurantoin Monohyd/M-Cryst (Macrobid) 100 mg capsule Active 100 MG PO Twice daily 01 05May 27, 2022 12:00am must administer with a meal/food 2 ml ondansetron 2 mg/ml injection (20 [...] ondansetron (PF) (ZOFRAN) injection 4 mg Start: 08-18-2021 take 1 tablet by mouth once da taylor Start: 03-07-2021 take 1 tablet by troy th three times daily as needed for nausea and vomiting Ondansetron HCl - 4 MG Oral Tablet TAKE ONE TABLET BY MOUTH THREE TIMES A DAY NEEDED FOR NAUSEA AND VOMITING Quantity: 30 Refills: 0 Ordered: 07-Mar-2021 DO Start : 07-Mar-2021 Active take 1 tablet by troy th every twenty-four hours Ondansetron HCl 4 MG 1 tablet Orally Once a day Active Oxygen Therapy, Adult (2 sources) Start: 03-19-2023 End: 03-25-2023 Oxygen Therapy, Adult Start: 10-02-2022 End: 10-06-2022 Oxygen Therapy, Adult pantoprazole 40 mg delayed release oral tablet (20 sources) Proton Pump Inhibitor Start: 05-06-2019 End: 03-25-2023 take 40 mg by mouth twice daily 40 mg, Oral, 2 times daily, First dose on [facility] 01/05/25 at 1400, Until Discontinued, Do not crush or break. take 1 tablet by mouth before me altime pantoprazole (ProtoNix) 20 MG EC tablet Take 20 mg by mouth in the morning. Take before meals. Active polyethylene glycol 3350 [id number] mg powder for oral solution (1 source) [...] 04-17-2023 rivaroxaban (XARELTO) tablet 10 mg sennosides, longterm 8.6 mg oral tablet (2 sources) Start: 03-19-2023 End: 03-25-2023 senna (SENOKOT) tablet 8.6 mg Start: 10-02-2022 End: 10-06-2022 senna (SENOKOT) tablet 8.6 m g sodium chloride 0.111 meq/ml nasal spray (7 sources) Start: 01-06-2025 take 1 spray(s) nasal route every four hours as needed 1 spray, Each Nostril, EVERY 4 HOURS PRN, Starting on Thu01/06/25 at 0650, Until Discontinued, Congestion Start: 01-05-2025 End: 01-06-2025 IntraVENous, at 100 mL/hr, C ONTINUOUS, Starting on Thu01/05/25 at 1345 Start: 03-20-2023 End: 03-25-2023 sodium chloride 0.9 % flush 10 mL Start: 03-19-2023 End: 03-25-2023 sodium chloride 0.9 % flush 10 mL Start: 03-19-2023 End: 03-25-2023 sodium chloride 0.9 % infusi on Start: 10-02-2022 End: 10-06-2022 sodium chloride 0.9 % flush 10 mL spironolactone 50 mg oral tablet (10 sources) Aldosterone Antagonist Start: 04-29-2021 End: 09-04-2021 Spironolactone 50 mg tablet Discontinued 25 MG PO Daily April 29, 2021 12:00am September 04, 2021 3:22pm Start: 04-29-2021 End: 09-04-2021 take 25 mg by mouth once daily Spironolactone Discontinued 25 MG PO Daily April 29, 2021 12:00am September 04, 2021 3:22pm Spironolactone 2 5 MG 1 tablet Orally Active temazepam 15 mg oral capsule (20 sources) Benzodiazepine Start: 01-05-2025 take 15 mg by mouth once daily as needed 15 mg, Oral, NIGHTLY PRN, Starting on Thu01/05/25 at 2100, Until Discontinued, Sleep Start: 05-06-2019 take 1 capsule by mouth once d aily at bedtime as needed tirzepatide (Mounjaro) 2.5 mg/0.5 mL pen injector [...] the skin 1 (one) time per week. Active Tirzepatide (MOUNJARO) 2.5 MG/0.5ML SOAJ (1 source) End: 01-05-2025 Tirzepatide (MOUNJARO) 2.5 MG/0.5ML SOAJ Inject into the skin once a week 01/05/2025 Discontinued (LIST CLEANUP) tiZANidine 4 mg oral tablet (20 sources) Central alpha-2 Adrenergic Agonist Start: 01-05-2025 take 4 mg by mouth once daily 4 mg, Oral, NIGHTLY, First dose on Thu01/05/25 at 2230, Until Discontinued Start: 12-29-2023 take 2 tablets by mo uth twice daily as needed Start: 03-19-2023 End: 03-25-2023 take 8 mg [...] by mouth twice daily as needed Tizanidine 4 mg Capsule Discontinued 4 MG PO Q12H as needed for Muscle Spasm May 06, 2019 12:00am January 25, 2022 8:56pm 2 tablets as needed orally twice a day take 2 tablets by mo uth once daily tiZANidine (ZANAFLEX) 4 MG tablet Take 2 tablets by mouth nightly Suspended End: 01-05-2025 take 1 capsule by mouth every twelve hours as needed tiZANidine (ZANAFLEX) 4 MG capsule Take 1 capsule by mouth every 12 hours as needed 01/05/2025 Discontinued (LIST CLEANUP) take 2 tablets by mo uth twice daily as needed tiZANidine HCl 4 MG 2 tablet as needed Orally TWICE A DAY NEEDED Active topiramate 100 mg oral tablet (20 sources) Start: 01-05-2025 take 1 tablet by mouth twice daily 200 mg, Oral, 2 TIMES DAILY, First dose on Thu01/05/25 at 1400, Until Discontinued, It is not recommended to crush, break, or chew immediate release tablets due to bitter taste. Start: 03-19-2023 End: 03-25-2023 take 50 mg [...] dose during or after administration) Start: 03-21-2022 take 2 tablets by mo uth once daily Start: 03-21-2022 Topamax 25 MG 1 tablet in the evening, if no issues or side effects increase to 2 tablets after 1 week. Orally Once a day for 30 day(s) Mar, Active take 1 tablet by troy th twice daily topiramate (TOPAMAX) 200 MG tablet Take 1 tablet by mouth 2 times daily Suspended traMADol hydrochloride 50 mg oral tablet (9 [...] Taking at Discharge) take 1 tablet by troy th every twenty-four hours traMADol HCl 50 MG 1 tablet as needed Orally Once a day Active traZODone hydrochloride 50 mg oral tablet (2 sources) Serotonin Reuptake Inhibitor Start: 03-19-2023 End: 03-25-2023 traZODone (DESYREL) tablet 25 mg Start: 10-02-2022 End: 10-06-2022 traZODone (DESYREL) tablet 5 0 mg Problems Active Problems Problem Classification Problem Date Documented Date Episodic/Chronic Acute and chronic tonsillitis (10 sources) Hypertrophy of lingual tonsil; Translations: [Hypertrophy of tonsils] Onset: 4 02-03-2024 Chronic Asthma (20 sources) Moderate persistent asthma; Translations: [Moderate persistent asthma, uncomplicated] Onset: 1 Resolved: 2 Chronic Cardiac and circulatory congenital anomalies (10 sources) Ostium secundum type atrial septal defect; Translations: [Atrial septal defect within oval fossa] Onset: 3 02-03-2024 Chronic Chronic kidney disease (20 sources) Chronic kidney disease stage 3; Translations: [Chronic kidney disease, Stage III (moderate)] Onset: 1 Resolved: 2 Chronic Chronic kidney disease (20 sources) Chronic kidney disease; Translations: [Chronic kidney disease, stage 3a] Onset: 1 Resolved: 2 Chronic obstructive pulmonary disease and bronchiectasis (15 sources) Chronic obstructive lung disease; Translations: [Chronic airway obstruction, not elsewhere classified] Onset: 3 01-05-2025 Chronic Chronic obstructive pulmonary disease and bronchiectasis (1 source) Bronchitis; Translations: [Bronchitis, not specified as acute or chronic] 10-27-2024 Episodic Complications of surgical procedures or medical care (4 sources) Hypotension following procedure; Translations: [Postprocedural hypotension] Onset: 5 01-05-2025 Episodic Congestive heart failure; nonhypertensive (20 sources) Chronic right-sided congestive heart failure; Translations: [Congestive heart failure, unspecified] Onset: 7 Resolved: 2 Chronic Coronary atherosclerosis and other heart disease (11 sources) Atherosclerotic heart disease of [place] coronary artery without angina pectoris; Translations: [Coronary atherosclerosis] Onset: 3 02-03-2024 Chronic Deficiency and other anemia (20 sources) Anemia in chronic kidney disease; Translations: [Anemia in chronic kidney disease] Chronic Deficiency and other anemia (1 source) Anemia in chronic kidney disease Onset: 1 Resolved: 1 Chronic Deficiency and other anemia (17 sources) Iron deficiency anemia; Translations: [Iron deficiency anemia, unspecified] Onset: 4 04-17-2022 Episodic Deficiency and other anemia (2 sources) Iron deficiency anemia, unspecified; Translations: [Iron deficiency anemia, unspecified] 04-16-2022 Episodic Diabetes mellitus without complication (13 sources) Diabetic on diet only; Translations: [Diabetes mellitus without mention of complication, type II or unspecified type, not stated as uncontrolled] Onset: 5 01-05-2025 Chronic Diabetes mellitus without complication (10 sources) Other abnormal glucose; Translations: [Impaired fasting glucose] Onset: 1 Resolved: 2 Episodic Esophageal disorders (20 sources) Gastroesophageal reflux disease; Translations: [Gastro-esophageal reflux disease without esophagitis] Onset: 7 Resolved: 2 Chronic Essential hypertension (20 sources) Hypertensive disorder; Translations: [Essential (primary) hypertension] Onset: 2 Resolved: 2 Chronic Gout and other crystal [...] Chronic Immunizations and screening for infectious disease (2 sources) Patient encounter status; Translations: [Other specified vaccination] 10-27-2024 Episodic Nutritional deficiencies (1 source) Vitamin D deficiency, unspecified; Translations: [VITAMIN D DEFICIENCY UNSPECIFIED] Onset: 3 Chronic Osteoarthritis (20 sources) Osteoarthritis of knee; Translations: [Osteoarthritis of knee, unspecified] Onset: 2 Resolved: 2 Chronic Other aftercare (6 sources) Other bed bug exterminator (current) drug therapy; Translations: [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 THERAPY] Onset: 2 Resolved: 2 Episodic Other aftercare (1 source) halfway (current) use of antithrombotics/antiplat elets; Translations: [CAR UNLOADER HELPER ANTITHROMBOT/ANTIPLATLET S] Onset: 3 Episodic Other aftercare (12 sources) Encounter for other orthopedic aftercare Episodic Other aftercare (12 sources) Encounter for other specified surgical aftercare Episodic Other connective tissue disease (2 sources) Presence of right artificial knee joint; Translations: [PRESENCE RT ARTIFICIAL K] Onset: 8 Chronic Other connective tissue disease (20 sources) Presence of left artificial knee joint; Translations: [Presence of total left knee joint prosthesis] Onset: 2 Chronic Other connective tissue disease (10 sources) History of arthroplasty of left knee; Translations: [Presence of left artificial knee joint] Onset: 4 02-03-2024 Chronic Other connective tissue disease (10 sources) History of total knee arthroplasty; Translations: [Presence of unspecified artificial knee joint] Onset: 4 02-03-2024 Chronic Other connective tissue disease (1 source) History of left total knee replacement; Translations: [Presence of left artificial knee joint] 04-28-2025 Chronic Other connective tissue disease (17 sources) Cramp; Translations: [Cramp and spasm] Onset: 4 06-10-2021 Episodic Other connective tissue disease (20 sources) Trochanteric bursitis, left hip; Translations: [TROCHANTERIC BURSITIS LEFT HIP] Onset: 2 Episodic Other diseases of kidney and ureters (20 sources) Hyperparathyroidism due to renal insufficiency; Translations: [Secondary hyperparathyroidism of renal origin] Chronic Other diseases of kidney and ureters (4 sources) Secondary hyperparathyroidism of renal origin; Translations: [SEC HYPERPARATHYROIDISM RENAL ORIGN] Onset: 1 Resolved: 2 Chronic Other diseases of kidney and ureters (17 sources) Acute renal insufficiency; Translations: [Disorder of kidney and ureter, unspecified] Onset: 4 05-06-2019 Episodic Other ear and sense organ disorders (4 sources) Sensorineural hearing loss, bilateral; Translations: [Sensorineural hearing loss, bilateral] 03-14-2025 Chronic Other ear and sense organ disorders (2 sources) Ear sensations - finding; Translations: [Other specified disorders of ear, bilateral] 01-18-2025 Episodic Other ear and sense organ disorders (2 sources) Bilateral tinnitus; Translations: [Tinnitus, bilateral] 03-14-2025 Episodic Other endocrine disorders (20 sources) Hypoglycemia; Translations: [Hypoglycemia, unspecified] Chronic Other endocrine disorders (5 sources) Hypoglycemia, unspecified; Translations: [Hypoglycemia E16.2] Onset: 1 Resolved: 2 Chronic Other gastrointestinal disorders (8 sources) Bariatric surgery [...] Onset: 3 Chronic Other non-traumatic joint disorders (20 sources) Pain in left knee; Translations: [Pain, joint, knee, left] Onset: 8 Resolved: 2 Episodic Other non-traumatic joint disorders (20 sources) Arthralgia of the lower leg; Translations: [Pain in right knee] Episodic Other non-traumatic joint disorders (14 sources) Pain in left hip; Translations: [Left hip pain] Onset: 5 Episodic Other non-traumatic joint disorders (14 sources) Effusion, left knee; Translations: [Effusion, left knee] Onset: 5 Episodic Other non-traumatic joint disorders (2 sources) Hip pain; Translations: [Pain in left hip] 04-25-2025 Episodic Other nutritional; endocrine; and metabolic disorders (20 sources) Body mass index 40+ - severely obese; Translations: [Morbid obesity] Onset: 7 02-03-2024 Chronic Other nutritional; endocrine; and metabolic disorders (20 sources) Morbid obesity; Translations: [Morbid (severe) obesity due to excess calories] Onset: 3 02-03-2024 Chronic Other nutritional; endocrine; and metabolic disorders [...] Chronic Other nutritional; endocrine; and metabolic disorders (3 sources) Obese class II; Translations: [Obesity, Class II, BMI 35-39.9] Onset: 5 04-28-2025 Chronic Other upper respiratory disease (20 sources) Allergic rhinitis; Translations: [Allergic rhinitis, unspecified] Onset: 4 12-29-2023 Chronic Other upper respiratory disease (4 sources) Allergic rhinitis, unspecified; Translations: [Allergic rhinitis J30.9] Onset: 1 Resolved: 2 Chronic Otitis media and related conditions (2 sources) Dysfunction of bilateral eustachian tubes; Translations: [Unspecified Eustachian tube disorder, bilateral] 01-18-2025 Episodic Peripheral and visceral atherosclerosis (10 sources) Atherosclerosis of artery ; Translations: [Unspecified atherosclerosis] Onset: 4 02-03-2024 Chronic Peritonitis and intestinal abscess (17 sources) Infectious disease of abdomen; Translations: [Peritonitis, unspecified] Onset: 4 02-26-2022 Episodic Phlebitis; thrombophlebitis and thromboembolism (20 sources) Left lower limb vein thrombophlebitis; Translations: [Phlebitis and thrombophlebitis of other deep vessels of left lower extremity] Onset: 3 06-23-2021 Episodic Pulmonary heart disease (10 sources) Pulmonary hypertension; Translations: [Pulmonary hypertension, unspecified] Onset: 7 02-03-2024 Chronic Residual codes; unclassified (2 sources) Sleep apnea; Translations: [Unspecified sleep apnea] Chronic Residual codes; unclassified (20 sources) Obstructive sleep apnea syndrome; Translations: [Obstructive sleep apnea (adult) (pediatric)] Onset: 6 02-03-2024 Chronic Residual codes; unclassified (12 sources) Obstructive sleep apnea (adult) (pediatric); Translations: [JEREMY (obstructive sleep apnea) G47.33] Onset: 1 Resolved: 2 Chronic Residual codes; unclassified (20 sources) Insomnia; Translations: [Insomnia, unspecified] Episodic Screening and history of mental health and substance abuse codes (20 sources) Ex-smoker; Translations: [Personal history of tobacco use] Episodic Comment on above: high school smoker; Skin and subcutaneous tissue infections (17 sources) Cellulitis; Translations: [Cellulitis, unspecified] Onset: 4 12-22-2020 Episodic Spondylosis; intervertebral disc disorders; other back problems (20 sources) Degeneration of lumbar intervertebral disc; Translations: [Other intervertebral disc degeneration, lumbar region] Onset: 2 Chronic Spondylosis; intervertebral disc disorders; other back problems (20 sources) Pain in thoracic spine; Translations: [Low back pain] Onset: 1 Resolved: 2 Episodic Thyroid disorders (20 sources) Nontoxic multinodular goiter; Translations: [Thyroid nodule] Onset: 3 Chronic Unclassified (3 sources) Unknown / UNK(Unknown) Onset: 7 Unclassified (1 source) OTH SPEC SYSTEM INVOLV CONNECT TISS; Translations: [OTH SPEC SYSTEM INVOLV CONNECT TISS] Onset: 3 Unclassified (1 source) Left knee pain, unspecified chronicity 04-28-2025 Urinary tract infections (17 sources) Urinary tract infectious disease; Translations: [Urinary tract infection, site not specified] Onset: 4 05-27-2022 Episodic Viral infection (17 sources) Viral disease; Translations: [Viral infection, unspecified] Onset: 4 05-10-2019 Episodic Past or Other Problems Problem Classification Problem Date Documented Da te Episodic/Chronic Complication of device; implant or graft (20 sources) Loosening of knee joint prosthesis; Translations: [Mechanical loosening of internal left knee prosthetic joint, subsequent encounter] Onset: 09-03-2022 Episodic Conditions associated with dizziness or vertigo (12 sources) Dizziness; Translations: [Dizziness and giddiness] Onset: 02-19-2012 02-03-2024 Episodic Deficiency and other anemia (4 sources) Anemia, unspecified; Translations: [ANEMIA UNSPECIFIED] Onset: 09-25-2021 Resolved: 04-02-2022 Episodic Deficiency and other anemia (10 sources) Anemia; Translations: [Anemia, unspecified] Onset: 02-18-2012 02-03-2024 Episodic Lymphadenitis (12 sources) Cervical lymphadenopathy; Translations: [Localized enlarged lymph nodes] Onset: 02-03-2024 02-03-2024 Episodic Other aftercare (1 source) Encounter for follow-up examination after completed treatment for conditions other than malignant neoplasm; Translations: [Encounter for follow-up examination after completed treatment for conditions other than malignant neoplasm] Onset: 06-30-2017 Episodic Other circulatory disease (20 sources) Low blood pressure; Translations: [Hypotension, unspecified] Onset: 02-19-2012 02-03-2024 Episodic Other connective tissue disease (10 sources) Cramp of muscle of left lower limb; Translations: [Cramp and spasm] Onset: 04-08-2018 02-03-2024 Episodic Other connective tissue disease (9 sources) Fibromyalgia; Translations: [Fibromyalgia] Onset: 07-06-2017 01-18-2025 Episodic Other gastrointestinal disorders (20 sources) History of bariatric surgical procedure; Translations: [Bariatric surgery status] Onset: 09-23-2023 02-03-2024 Episodic Other lower respiratory disease (10 sources) Dyspnea on exertion; Translations: [Other forms of dyspnea] Onset: 05-27-2018 02-03-2024 Episodic Other lower respiratory disease (10 sources) Restrictive lung disease; Translations: [Other disorders of lung] Onset: 07-06-2017 02-03-2024 Episodic Other non-traumatic joint disorders (1 source) Pain in right knee; Translations: [PAIN IN RIGHT KNEE] Onset: 12-21-2017 Episodic Other nutritional; endocrine; and metabolic disorders (4 sources) 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 inflammatory arthritis and tophaceous disease; Translations: [HU W/O SIGNS IA AND TOPHACEOUS DZ] Onset: 09-05-2021 Resolved: 04-02-2022 Episodic Other screening for suspected conditions (not mental disorders or infectious disease) (20 sources) Abnormal results of cardiovascular function studies; Translations: [Abnormal result of cardiovascular function study, unspecified] Onset: 02-19-2012 02-03-2024 Episodic Other skin disorders (4 sources) Localized swelling, mass and lump, left lower limb; Translations: [LOC SWELL MASS LUMP LT LOWER LIMB] Onset: 05-08-2022 Episodic Residual codes; unclassified (12 sources) Edema; Translations: [Edema] Onset: 09-23-2023 02-03-2024 Episodic Residual codes; unclassified (8 sources) Localized edema; Translations: [Lower extremity edema R60.0] Onset: 07-25-2021 Resolved: 04-02-2022 Episodic Residual codes; unclassified (1 source) Insomnia, unspecified; Translations: [Insomnia, unspecified type G47.00] Onset: 07-25-2021 Resolved: 07-25-2021 Episodic Residual codes; unclassified (10 sources) Localized edema; Translations: [Localized edema] Onset: 05-27-2018 02-03-2024 Episodic Unclassified (1 source) Z96.651 Onset: 08-03-2018 Results Test Name Value Interpretation Reference Range Facility Ambulatory Visit Summaryon 0 06-13-2025 Ambulatory Visit Summary Ambulatory Visit Summary RENUKA GRAHAM :1955 Visit Date:06/13/2025 Ambulatory Visit Instructions Your Diagnosis Dysphagia Your Care Team Attending Physician - Glen Bejarano MD Primary Care Physician - PETER SOSA DO This Is Your Medications List Contact prescribing physician if questions or concerns acetaminophen-oxycodone (acetaminophen-oxycodone 325 mg-5 mg oral tablet) albuterol (albuterol HFA 90 mcg/inh MDI) alendronate (alendronate 5 mg oral tablet) allopurinol budesonide-formoterol (Symbicort 160/4.5 inhalation aerosol with adapter) bumetanide (bumetanide 1 mg Tab) cholecalciferol (Vitamin D3) cholecalciferol (Vitamin D3) cyclobenzaprine duloxetine (duloxetine 30 mg oral delayed release capsule) ferrous sulfate fluticasone nasal (fluticasone 0.05 mg/inh Nasal [place]) gabapentin (gabapentin 300 mg Cap) hydrOXYzine magnesium gluconate (magnesium gluconate 500 mg oral tablet) midodrine (midodrine 2.5 mg oral tablet) ondansetron (ondansetron 4 mg Tab) pantoprazole phentermine (phentermine 37.5 mg Tab) polycarbophil (Fiber Tabs) sucralfate (Carafate 1 gram Tab) temazepam tizanidine topiramate (topiramate 25 mg Tab) Procedures Performed Colonoscopy (06/01/2024), Esophagogastroduodenosco py (06/01/2024), EGD (esophagogastroduodenosc opic) electrohydraulic lithotripsy of bezoar in stomach (06/15/2019), Colonoscopy (08/02/2018), Appendicectomy, Both knees, Caesarean section, Gastric bypass, Tendonitis of left ankle, Tonsillectomy. Discharge Vitals Heart Rate (Peripheral) 70 Respiratory Rate 18 Blood Pressure 120/62 Height 160 cm Height 63 in Weight 96 kg Weight 211.644 lb BMI 37.5 Medications What How Much When Instructions Unchanged acetaminophen-oxycodone (acetaminophen-oxycodone 325 mg-5 mg oral tablet) 1 Tablets By Mouth Every 6 hours as needed for as needed for pain Contact prescribing physician if questions or concerns Unchanged albuterol (albuterol HFA 90 mcg/ inh MDI) Respiratory (Inhalation), 0 Refill(s) Contact prescribing physician if questions or concerns Unchanged alendronate (alendronate 5 mg oral tablet) 1 By Mouth Every day osteoporosis Contact prescribing physician if questions or concerns Unchanged allopurinol By Mouth Every day Contact prescribing physician if questions or concerns Unchanged budesonide-formoterol (Symbicort 160/ 4.5 inhalation aerosol with adapter) 10 gm, 0 Refill(s), INHALE 2 PUFFS TWICE A DAY Contact prescribing physician if questions or concerns Unchanged bumetanide (bumetanide 1 mg Tab) 180 EA, 0 Refill(s), TAKE ONE TABLET BY MOUTH TWICE A DAY Contact prescribing physician if questions or concerns Unchanged cholecalciferol (Vitamin D3) By Mouth 2 times a day Contact prescribing physician if questions or concerns Unchanged cholecalciferol (Vitamin D3) Oral Contact prescribing physician if questions or concerns Unchanged cyclobenzaprine 10 Unknown, Oral Contact prescribing physician if questions or concerns Unchanged duloxetine (duloxetine 30 mg oral delayed release capsule) 1 Unknown, 0 Refill(s) Contact prescribing physician if questions or concerns Unchanged ferrous sulfate 2,000 Milligram By Mouth 2 times a day Contact prescribing physician if questions or concerns Unchanged fluticasone nasal (fluticasone 0.05 mg/ inh Nasal [place]) 2 Sprays Nasal Inhalation Every day Contact prescribing physician if questions or concerns Unchanged gabapentin (gabapentin 300 mg Cap) 1 Capsules By Mouth 3 times a day Oral Contact prescribing physician if questions or concerns Unchanged hydrOXYzine 10 Milligram By Mouth 4 times a day as needed for as needed for anxiety Contact prescribing physician if questions or concerns Unchanged magnesium gluconate (magnesium gluconate 500 mg oral tablet) 1 Tablets By Mouth Every day Contact prescribing physician if questions or concerns Unchanged midodrine (midodrine 2.5 mg oral tablet) 2 times a day 2.5 Unknown, oral, 0 Refill(s), Take 1 tablet (2.5 mg total) by mouth 2 (two) times a day. Contact prescribing physician if questions or concerns Unchanged ondansetron (ondansetron 4 mg Tab) Oral Contact prescribing physician if questions or concerns Unchanged pantoprazole 40 Milligram By Mouth 2 times a day Contact prescribing physician if questions or concerns Unchanged phentermine (phentermine 37.5 mg Tab) Contact prescribing physician if questions or concerns Unchanged polycarbophil (Fiber Tabs) 1 tab By Mouth Every day Contact prescribing physician if questions or concerns Unchanged sucralfate (Carafate 1 gram Tab) 1 Tablets By Mouth 4 times a day Contact prescribing physician if questions or concerns Unchanged temazepam 30 Milligram By Mouth Once a day (at bedtime) Contact prescribing physician if questions or concerns Unchanged tizanidine 4 Milligram By Mouth 2 times a day as needed for Muscle pain Contact prescribing physician if quest (more content not included)... Normal [facility] Gastroenterology Office/Clin ic Noteon 06-13-2025 Gastroenterology Office/Clinic Note Gastroenterology Office/Clinic Note Chief Complaint dysphagia HPI Staff EST- Patient is a(n) 69 year old female who presents today for a sick call with c/o dysphagia. Dysphagia: When did it start: over a year Solids or liquids: occasional liquid, mainly solids Frequency (every meal? Or less often): depends on the food she eats Previous food impaction: yes, usually has to bring it back up Denies blood thinners. Denies GLP-1 agonists. History of Present Illness Reviewed HPI collected by staff Review of Systems PHQ Score Initial Depression Screen Score: 0 SCORE All systems reviewed, negative; Except for above Physical Exam Vitals & Measurements HR: 70(Peripheral) RR: 18 BP: 120/62 HT: 160 cm HT: 63 in WT: 211.644 lb WT: 96 kg BMI: 37.5 No acute distress Procedure EGD 06/01/24: Impression and Plan 1. Esophageal landmarks identified, normal examined esophagus. Empiric dilation with Delcid 54 Thai was done, no mucosal disruption was noted afterwards 2. Evidence of surgery in the stomach with Joellen-en-Y anatomy, normal anastomosis, minimal patchy erythema in the gastric pouch, otherwise normal gastric pouch. Random biopsies were taken to rule out H. pylori 3. Normal examined efferent jejunal loop, advanced about 10 cm Colonoscopy 06/01/24: Impression and Plan 1. Small internal hemorrhoids 2. Severe sigmoid diverticulosis 3. Significant redundant colon, otherwise normal colonic mucosa - Repeat colonoscopy:: In 10 years per patient at the age Pathology: Final Diagnosis (Verified) STOMACH, BIOPSY: Chronic inactive gastritis. Addendum (Verified) IHC stains are negative for Helicobacter pylori. Assessment/Plan 1. Dysphagia (R13.10: Dysphagia, unspecified) Mainly with solids, some liquids Depends on what food she eats Occasionally has to bring food back up for relief Had relief with dilation in the past EGD 05/2024: Empiric dilation with Delcid 54 Thai - Schedule EGD with Delcid dilation to evaluate. Discussed risks such as bleeding, injury and perforation as well as benefits. Patient agreeable. IAmanda, personally scribed for Glen Bejarano on 06/13/2025 10:55:20. . Follow-up No qualifying data available Problem List/Past Medical History Ongoing CHF (congestive heart failure) COPD (chronic obstructive pulmonary disease) Hypertension Kidney failure Historical No qualifying data Procedure/Surgical History Colonoscopy (06/01/2024), Esophagogastroduodenosco py (06/01/2024), EGD (esophagogastroduodenosc opic) electrohydraulic lithotripsy of bezoar in stomach (06/15/2019), Colonoscopy (08/02/2018), Appendicectomy, Both knees, Caesarean section, Gastric bypass, Tendonitis of left ankle, Tonsillectomy. Medications acetaminophen-oxycodone 325 mg-5 mg oral tablet, 1 tab(s), Oral, q6hr, PRN albuterol HFA 90 mcg/inh MDI alendronate 5 mg oral tablet, 1, Oral, Daily allopurinol, Oral, Daily bumetanide 1 mg Tab Carafate 1 gram Tab, 1 gm= 1 tab(s), Oral, QID cyclobenzaprine duloxetine 30 mg oral delayed release capsule ferrous sulfate, 2000 mg, Oral, BID Fiber Tabs, 1 tab, Oral, Daily fluticasone 0.05 mg/inh Nasal [place], 2 spray(s), Nasal, Daily gabapentin 300 mg Cap, 300 mg= 1 cap(s), Oral, TID hydrOXYzine, 10 mg, Oral, QID, PRN magnesium gluconate 500 mg oral tablet, 500 mg= 1 tab(s), Oral, Daily midodrine 2.5 mg oral tablet, BID ondansetron 4 mg Tab pantoprazole, 40 mg, Oral, BID phentermine 37.5 mg Tab Symbicort 160/4.5 inhalation aerosol with adapter temazepam, 30 mg, Oral, Once a day (at bedtime) tizanidine, 4 mg, Oral, BID, PRN topiramate 25 mg Tab Vitamin D3 Vitamin D3, Oral, BID Allergies Latex (UNKNOWN) Tape (Itching) aspirin (Unknown) penicillins (UNKNOWN) sulfa drugs (UNKNOWN) Social History Alcohol - Low Risk, 06/07/2019 Substance Abuse - Denies Substance Abuse, 06/07/2019 Tobacco - Denies Tobacco Use, 06/07/2019 Former smoker, quit more than 30 days ago Tobacco Use:. Cigarettes, Yes, 06/13/2025 Family History Patient was adopted Family history is unknown Immunizations Vaccine Date Status influenza virus vaccine, inactivated 08/26/2023 Recorded influenza virus vaccine, inactivated 08/07/2022 Recorded SARS-CoV-2 (COVID-19) mRNA BNT-162b2 vax 01/24/2021 Recorded SARS-CoV-2 (COVID-19) mRNA BNT-162b2 vax 01/02/2021 Recorded influenza virus vaccine, inactivated 08/23/2020 Recorded pneumococcal 23-valent vaccine 08/19/2020 Recorded influenza virus vaccine, inactivated 08/19/2020 Recorded influenza virus vaccine, inactivated 08/06/2020 Recorded pneumococcal 23-valent vaccine 08/02/2019 Recorded influenza virus vaccine, inactivated 08/02/2019 Recorded pneumococcal 23-valent vaccine 07/19/2019 Recorded influenza virus vaccine, inactivated 07/19/2019 Recorded pneumococcal 13-valent vaccine 07/19/2018 Recorded influenza virus (more content not included)... Normal [facility] Comment on above: Result Comment: Elec tronically Signed By: Amanda Tyson MA\.br\Date and Time Signed: 06/13/25 10:58 EDT\.br\Electronically Co-Signed By: Darci BRYANT, Glen Ta\.br\Date and Time Co-Signed: 06/13/25 16:19 EDT C REACTIVE PROTEINon 025 CRP High sensitivity method [Mass/Vol] 4.44 mg/L NINF - 10.00 mg/L [facility] Interpretation and review of laboratory results Normal [facility] CRP [Mass/Vol] 4.44 mg/L Normal <10.00 [facility] Comment on above: Performed By: #### C RP #### [facility] (DEFAULT) [address] [place] [address] CBC,PLATELETSon 04-28-2025 Erythrocyte distribution width (RBC) [Ratio] 14.2 % 10.8 - 14.9 % [facility] Hematocrit (Bld) [Volume fraction] 39.5 % 34.9 - 44.3 % [facility] Hemoglobin (Bld) [Mass/Vol] 12.5 g/dL 11.4 - 15.2 g/dL [facility] Interpretation and review of laboratory results Normal [facility] MCH (RBC) [Entitic mass] 27.7 pg 25.9 - 33.9 pg [facility] MCHC (RBC) [Mass/Vol] 31.6 g/dL 31.4 - 35.9 g/dL [facility] MCV (RBC) [Entitic vol] 87.4 fL 79.6 - 97.7 fL [facility] Platelet mean volume (Bld) [Entitic vol] 11.6 fL 8.5 - 12.2 fL [facility] Platelets (Bld) [#/Vol] 232 10*3/uL 150 - 393 K/uL [facility] RBC (Bld) [#/Vol] 4.52 10*6/uL [facility] WBC (Bld) [#/Vol] 8.1 10*3/uL 3.99 - 11.19 K/uL [facility] Hematocrit (Bld) [Volume fraction] 39.5 % Normal 34.9-44.3 [facility] Comment on above: Performed By: #### H EMO #### [facility] (DEFAULT) [address] [place] [id number] Hemoglobin (Bld) [Mass/Vol] 12.5 g/dL Normal 11.4-15.2 [facility] Comment on above: Performed By: #### H EMO #### [facility] (DEFAULT) [address] [place] [id number] MCV (RBC) [Entitic vol] 87.4 fL Normal 79.6-97.7 [facility] Comment on above: Performed By: #### H EMO #### [facility] (DEFAULT) [address] [place] [address]34 Mean Cell Hgb 27.7 pg Normal 25.9-33.9 [facility] Comment on above: Performed By: #### H EMOGC #### [facility] (DEFAULT) [address] [place] [address] 38407 Mean Cell Hgb Conc 31.6 g/dL Normal 31.4-35.9 [facility] Comment on above: Performed By: #### H EMOGC #### [facility] (DEFAULT) [address] [place] [id number] Platelet mean volume (Bld) [Entitic vol] 11.6 fL Normal 8.5-12.2 [facility] Comment on above: Performed By: #### H EMOGC #### [facility] (DEFAULT) [address] [place] [address]39 Platelets (Bld) [#/Vol] 232 10*3/uL Normal 150-393 [facility] Comment on above: Performed By: #### H EMOGC #### [facility] (DEFAULT) [address] [place] [address] 47311 RBC (Bld) [#/Vol] 4.52 10*6/uL Normal 3.91-5.04 [facility] Comment on above: Performed By: #### H EMOGC #### [facility] (DEFAULT) [address] [place] [address] 61129 RBC Distribution 14.2 % Normal 10.8-14.9 [facility] Comment on above: Performed By: #### H EMOGC #### [facility] (DEFAULT) [address] [place] [address] [phone] WBC (Bld) [#/Vol] 8.10 10*3/uL Normal 3.99-11.19 [facility] Comment on above: Performed By: #### H EMOGC #### [facility] (DEFAULT) [address] [address] [address] SEDIMENTATION RATE, AUTOMATE Don 04-28-2025 ESR (Bld) [Velocity] 26 mm/h [facility] Interpretation and review of laboratory results Normal [facility] ESR Westergren 26 mm/hr Normal <30 [facility] Comment on above: Performed By: #### E SR #### [facility] (DEFAULT) [address] [address] XR HIP LEFT 2-3 VIEWSon 04-18 XR HIP LEFT 2-3 VIEWS EXAM: XR HIP LEFT 2-3 VIEWS, 04/28/2025 [...] is anatomically aligned with moderate degenerative changes. IMPRESSION: Moderate left hip osteoarthritis. Deformity of the left femoral neck/greater trochanter, possibly related to prior trauma. [facility] XR Hip - left 2 Viewson 04-18 IMPRESSION: Moderate left hip osteoarthritis. Deformity of the left femoral neck/greater trochanter, possibly related to prior trauma. OLOGY EXAM: XR HIP LEFT 2- 3 VIEWS, 04/28/2025 11:44 AM COMPARISON: No prior [...] is anatomically aligned with moderate degenerative changes. RADIOLOGY Wu Cole MD - 04/28/2025 EXAM: XR [...] is anatomically aligned with moderate degenerative changes. IMPRESSION IMPRESSION: Moderate left hip osteoarthritis. Deformity of the left femoral neck/greater trochanter, possibly related to prior trauma. [facility] Radiology Study observation (narrative) [facility] XR Hip - left 2 ViewsOrdered By: Wu Cole on 04-28-2025 [facility] Work Phone: XR KNEE LEFT 3+ VIEWS W/ DELFINO ATERAL STANDING 1 VIEWon 04-28-2025 XR KNEE LEFT 3+ VIEWS W/ BILATERAL STANDING 1 VIEW EXAM: XR KNEE LEFT 3+ VIEWS W/ [...] The proximal tibiofibular syndesmosis is anatomically aligned. IMPRESSION: Intact total left knee arthroplasty hardware and appropriate alignment. Posterior heterotopic ossification versus intra-articular loose bodies. Normal [facility] XR Knee - bilateral Views W standingon 04-28-2025 IMPRESSION: Intact total left knee arthroplasty hardware and appropriate alignment. Posterior heterotopic ossification versus intra-articular loose bodies. OLOGY EXAM: XR KNEE LEFT 3 + VIEWS W/ BILATERAL STANDING 1 VIEW, 04/28/2025 [...] The proximal tibiofibular syndesmosis is anatomically aligned. RADIOLOGY Wu Cole MD - 04/28/2025 EXAM: XR [...] The proximal tibiofibular syndesmosis is anatomically aligned. IMPRESSION IMPRESSION: Intact total left knee arthroplasty hardware and appropriate alignment. Posterior heterotopic ossification versus intra-articular loose bodies. [facility]narrative) [facility] Urine Cultureon 04-11-2025 Bacteria identified Cx Nom (U) <9,000 colonies/ml mixed bacterial skin contaminants 2 Days PERFORMED BY: [place] [address] PATHOLOGIST [employer] CONSULTANT ADILSON FRAZIER M.D. Normal [facility] Comment on above: Performed By: #### C UU #### [address] No Panel Informationon 03-14 [employer] Audiometry Audio indicated a mild to severe sensorineural hearing loss, bilaterally. [facility] US Thyroid glandon [place] [id number] Ultrasound Report Signed Patient: RENUKA GRAHAM MR#: [id number] : 1955 Acct:[id number] Age/Sex: 69 / F ADM Date: 01/24/25 Loc: US Attending Dr: Leah Barrera M.D. Ordering Physician: Leah Barrera M.D. Date of Service: 01/24/25 Procedure(s): US thyroid Accession Number(s): [id number] cc: PETER SOSA D.O.; Leah Barrera M.D. [address] [address] Patient Name: RENUKA GRAHAM MRN: [id number] date: 1955 Sex: F Assigned Patient Location: US Current Patient Location: US Accession/Order Number: [id number] Exam Date: 01/24/2025 12:07 Report Date: 01/24/2025 12:12 At the request of: LEAH BARRERA MD Procedure: US thyroid Thyroid ultrasound Reason for exam: Multinodular goiter. Comparison: Thyroid ultrasound 01/27/2024 Technique: Grayscale and color Doppler images of the thyroid gland were obtained. Findings: Right lobe 5.0 x 1.5 x 1.8 cm. Left lobe measures 4.6 x 1.8 x 1.6 cm. The thyroid gland is overall heterogenous in echotexture without hyperemia on color Doppler imaging. Multiple nodules are noted, largest measuring 13 x 12 x 13 involving the inferior pole of the right lobe. Finding is unchanged from the prior study. No new suspicious nodule is seen. Benign-appearing lymph node is seen involving the right neck measuring 14 x 6 x 4 mm. A similar-appearing lymph node is seen involving the left neck measuring 19 x 10 x 6 mm. US/US thyroid Impression: Multinodular goiter with dominant nodule involving the inferior pole of the right lobe unchanged measuring 13 x 12 x 13 mm. Benign-appearing lymph nodes involving the neck. A similar process is seen on the prior study from 2023. Impression dictated by: Carlos Tate Jr., D.O.01/24/2025 12:12 PM Dictation Location: [place] [address] Electronically authenticated by: [id number] Y Date: 01/24/2025 12:12 Dictated By: Carlos Tate M.D. Signed By: 01/24/25 1215 DD/ 1212 TD/TT: [employer] Laborer: [facility] Radiology, Radiologi MD hipolito - 01/24/2025 [place] [address] Ultrasound Report Signed Patient: RENUKA GRAHAM MR#: [id number] : 1955 Acct:[id number] Age/Sex: 69 / F ADM Date: 01/24/25 Loc: US Attending Dr: Leah Barrera M.D. Ordering Physician: Leah Barrera M.D. Date of Service: 01/24/25 Procedure(s): US thyroid Accession Number(s): [id number] cc: PETER SOSA D.O.; Leah Barrera M.D. The [place] [id number] Patient Name: RENUKA GRAHAM MRN: [facility]:[id number] date: 1955 Sex: F Assigned Patient Location: US Current Patient Location: US Accession/Order Number: [id number] Exam Date: 01/24/2025 12:07 Report Date: 01/24/2025 12:12 At the request of: LEAH BARRERA MD Procedure: US thyroid Thyroid ultrasound Reason for exam: Multinodular goiter. Comparison: Thyroid ultrasound 01/27/2024 Technique: Grayscale and color Doppler images of the thyroid gland were obtained. Findings: Right lobe 5.0 x 1.5 x 1.8 cm. Left lobe measures 4.6 x 1.8 x 1.6 cm. The thyroid gland is overall heterogenous in echotexture without hyperemia on color Doppler imaging. Multiple nodules are noted, largest measuring 13 x 12 x 13 involving the inferior pole of the right lobe. Finding is unchanged from the prior study. No new suspicious nodule is seen. Benign-appearing lymph node is seen involving the right neck measuring 14 x 6 x 4 mm. A similar-appearing lymph node is seen involving the left neck measuring 19 x 10 x 6 mm. US/US thyroid Impression: Multinodular goiter with dominant nodule involving the inferior pole of the right lobe unchanged measuring 13 x 12 x 13 mm. Benign-appearing lymph nodes involving the neck. A similar process is seen on the prior study from 2023. Impression dictated by: Carlos Tate Jr., D.O.01/24/2025 12:12 PM Dictation Location: [place] [address] Electronically authenticated by: [id number] Y Date: 01/24/2025 12:12 Dictated By: Carlos Tate M.D. Signed By: 01/24/25 1215 DD/ 1212 TD/TT: [employer] Laborer: [facility] Radiology Study observation (narrative) [facility] US Thyroid glandOrdered By: Radiologist Radiology on 01-24-2025 [facility] Work Phone: EKG Rhythm Stripon [facility] Basic Metab w/rfx MGon 01-05 Anion gap [Moles/Vol] 9 mmol/L Normal 9-16 [facility] Comment on above: Performed By: #### B MPX, CDP #### [facility] [address] [place] [address] [employer] Operator: Anusha Lea MD Calcium [Mass/Vol] 8.7 mg/dL Normal 8.6-10.4 [facility] Comment on above: Performed By: #### B MPX, CDP #### [facility] [address] [place] [address] [employer] Operator: Anusha Lea MD Chloride [Moles/Vol] 109 mmol/L High 98-107 [facility] Comment on above: Performed By: #### B MPX, CDP #### [address] [place] [address] [employer] Operator: Anusha Lea MD CO2 [Moles/Vol] 23 mmol/L Normal 20-31 [facility] Comment on above: Performed By: #### B MPX, CDP #### [address] [place] [address] [employer] Operator: Anusha Lea MD Creatinine [Mass/Vol] 1.0 mg/dL High 0.50-0.90 [facility] Comment on above: Performed By: #### B MPX, CDP #### [address] [place] [address] [employer] Operator: Anusha Lea MD Glucose [Mass/Vol] 166 mg/dL High 74-99 [facility] Comment on above: Performed By: #### B MPX, CDP #### [address] [place], [place] [id number] [employer] Operator: Anusha Lea MD Potassium [Moles/Vol] 4.1 mmol/L Normal 3.7-5.3 [facility] Comment on above: Performed By: #### B MPX, CDP #### [address] [place], [place] [id number] [employer] Operator: Anusha Lea MD Sodium [Moles/Vol] 141 mmol/L Normal 136-145 [facility] Comment on above: Performed By: #### B MPX, CDP #### [address] [place] [address] [employer] Operator: Anusha Lea MD Urea nitrogen [Mass/Vol] 19 mg/dL Normal 8-23 [facility] Comment on above: Performed By: #### B MPX, CDP #### [facility] [address] [place] [address] [employer] Operator: Anusha Lea MD BUN/CRE Ratio 19 Normal 07-08 [facility] Comment on above: Performed By: #### B MPX, CDP #### [facility] [address] [address] [employer] Operator: Anusha Lea MD GFR/1.73 sq M.predicted among non-blacks MDRD (S/P/Bld) [Vol rate/Area] 60 mL/min/{1.73_m2} Low >60 [facility] Comment on above: Result Comment: These results are not intended [...] following therapy that affects renal tubular secretion. Performed By: #### B MPX, CDP #### [facility] [address] [place] [address] [employer] Operator: Anusha Lea MD Basic Metabolic Panel w/ Ref vale to MGon 01-05-2025 Est, Glom Filt Rate 60 Low - PINF [facility] Comment on above: These results are not intended for use [...] following therapy that affects renal tubular secretion. Interpretation and review of laboratory results Abnormal [facility] Urea nitrogen/Creatinine [Mass ratio] 19 mg/mg [facility] CBC with Auto Differentialon 01-05-2025 Basophils (Bld) [#/Vol] 0 10*3/uL [facility] Basophils/100 WBC (Bld) 0 % 0 - 2 % [facility] Eosinophils (Bld) [#/Vol] 0.04 10*3/uL [facility] Eosinophils/100 WBC (Bld) 1 % 1 - 4 % [facility] Erythrocyte distribution width (RBC) [Ratio] 14 % 11.8 - 14.4 % [facility] Hematocrit (Bld) [Volume fraction] 35.2 % Low 36.3 - 47.1 % [facility] Hemoglobin (Bld) [Mass/Vol] 11.2 g/dL Low 11.9 - 15.1 g/dL [facility] Immature granulocytes (Bld) [#/Vol] 0 10*3/uL [facility] Immature granulocytes/100 WBC (Bld) 0 % 0 [facility] Interpretation and review of laboratory results Abnormal [facility] Lymphocytes/100 WBC (Bld) 10 % Low 24 - 43 % [facility] Lymphocytes/100 WBC (Bld) 0.44 % Low [facility] MCH (RBC) [Entitic mass] 28.4 pg 25.2 - 33.5 pg [facility] MCHC (RBC) [Mass/Vol] 31.8 g/dL 28.4 - 34.8 g/dL [facility] MCV (RBC) [Entitic vol] 89.3 fL 82.6 - 102.9 fL [facility] Monocytes/100 WBC (Bld) 1 % Low 3 - 12 % [facility] Monocytes/100 WBC (Bld) 0.04 % Low [facility] Morphology Jeff (Bld) [Interp] Normal [facility] Neutrophils/100 WBC (Bld) 88 % High 36 - 65 % [facility] Nucleated RBC/100 WBC (Bld) [Ratio] 0 % 0.0 per 100 WBC [facility] Platelet mean volume (Bld) [Entitic vol] 10.3 fL 8.1 - 13.5 fL [facility] Platelets (Bld) [#/Vol] 171 10*3/uL [facility] RBC (Bld) [#/Vol] 3.94 10*6/uL Low 3.95 - 5.11 m/uL [facility] Segmented neutrophils/100 WBC (Bld) 3.88 % [facility] WBC other (Bld) [#/Vol] 4.4 [facility] CBC with Diffon 01-05-2025 Abs. Basophil 0.00 k/uL Normal 0.0-0.2 [facility] Comment on above: Performed By: #### B MPX, CDP #### [facility] [address] [place], [place] [id number] [employer] Operator: Anusha Lea MD Abs.Imm.Granulocyte 0.00 k/uL Normal 0.00-0.30 [facility] Comment on above: Performed By: #### B MPX, CDP #### [address] [place], [place] [id number] [employer] Operator: Anusha Lea MD Abs.Neutrophil (Seg) 3.88 k/uL Normal 1.50-8.10 [facility] Comment on above: Performed By: #### B MPX, CDP #### [address] [place], [place] [id number] [employer] Operator: Anusha Lea MD Basophils/100 WBC (Bld) 0 % Normal 0-2 [facility] Comment on above: Performed By: #### B MPX, CDP #### [facility] [address] [place] [address] [place], [place] [id number] [employer] Operator: Anusha Lea MD Eosinophils (Bld) [#/Vol] 0.04 10*3/uL Normal 0.00-0.44 [facility] Comment on above: Performed By: #### B MPX, CDP #### [facility] [address] [place] [address] [employer] Operator: Anusha Lea MD Eosinophils/100 WBC (Bld) 1 % Normal 1-4 [facility] Comment on above: Performed By: #### B MPX, CDP #### [facility] [address] [place], [place] [id number] [employer] Operator: Anusha Lea MD Immature granulocytes/100 WBC (Bld) 0 % Normal 0 [facility] Comment on above: Performed By: #### B MPX, CDP #### [facility] [address] [place], [place] [id number] [employer] Operator: Anusha Lea MD Lymphocytes (Bld) [#/Vol] 0.44 10*3/uL Low 1.10-3.70 [facility] Comment on above: Performed By: #### B MPX, CDP #### [facility] [address] [place], [place] [id number] [employer] Operator: Anusha Lea MD Lymphocytes/100 WBC (Bld) 10 % Low 24-43 [facility] Comment on above: Performed By: #### B MPX, CDP #### [facility] [address] [place] [address] Dr[place], [place] [phone] [employer] Operator: Anusha Lea MD Monocytes (Bld) [#/Vol] 0.04 10*3/uL Low 0.10-1.20 [facility] Comment on above: Performed By: #### B MPX, CDP #### [facility] [address] [place], [place] [id number] [employer] Operator: Anusha Lea MD Monocytes/100 WBC (Bld) 1 % Low 3-12 [facility] Comment on above: Performed By: #### B MPX, CDP #### [facility] [address] [place], [place] [phone] [employer] Operator: Anusha Lea MD Morphology Jeff (Bld) [Interp] Normal Normal [facility] Comment on above: Performed By: #### B MPX, CDP #### [facility] [address] [place], [facility] [employer] Operator: Anusha Lea MD Neutrophil (Seg) 88 % High 36-65 [facility] Comment on above: Performed By: #### B MPX, CDP #### [facility] [address] [place] [address] [place] [address] [employer] Operator: Anusha Lea MD Erythrocyte distribution width (RBC) [Ratio] 14.0 % Normal 11.8-14.4 [facility] Comment on above: Performed By: #### B MPX, CDP #### [address] [place] [address] [employer] Operator: Anusha Lea MD Hematocrit (Bld) [Volume fraction] 35.2 % Low 36.3-47.1 [facility] Comment on above: Performed By: #### B MPX, CDP #### [address] [place] [address] [employer] Operator: Anusha Lea MD Hemoglobin (Bld) [Mass/Vol] 11.2 g/dL Low 11.9-15.1 [facility] Comment on above: Performed By: #### B MPX, CDP #### [address] [place], [place] [id number] [employer] Operator: Anusha Lea MD MCH (RBC) [Entitic mass] 28.4 pg Normal 25.2-33.5 [facility] Comment on above: Performed By: #### B MPX, CDP #### [address] [place] [address] [employer] Operator: Anusha Lea MD MCHC (RBC) [Mass/Vol] 31.8 g/dL Normal 28.4-34.8 [facility] Comment on above: Performed By: #### B MPX, CDP #### [address] [place] [address] [employer] Operator: Anusha Lea MD MCV (RBC) [Entitic vol] 89.3 fL Normal 82.6-102.9 [facility] Comment on above: Performed By: #### B MPX, CDP #### [address] [place] [address] [employer] Operator: Anusha Lea MD NRBC Automated 0.0 per 100 WBC Normal 0.0 [facility] Comment on above: Performed By: #### B MPX, CDP #### [address] [place], [place] [id number] [employer] Operator: Anusha Lea MD Platelet mean volume (Bld) [Entitic vol] 10.3 fL Normal 8.1-13.5 [facility] Comment on above: Performed By: #### B MPX, CDP #### [address] [place], [place] [id number] [employer] Operator: Anusha Lea MD Platelets (Bld) [#/Vol] 171 10*3/uL Normal 138-453 [facility] Comment on above: Performed By: #### B MPX, CDP #### [address] [place], [place] [id number] [employer] Operator: Anusha Lea MD RBC (Bld) [#/Vol] 3.94 10*6/uL Low 3.95-5.11 [facility] Comment on above: Performed By: #### B MPX, CDP #### [address] [place], [place] [id number] [employer] Operator: Anusha Lea MD WBC (Bld) [#/Vol] 4.4 10*3/uL Normal 3.5-11.3 [facility] Comment on above: Performed By: #### B MPX, CDP #### [address] [place] [address] [employer] Operator: Anusha Lea MD Cardiac echo study Procedure Ordered By: Nelia Carlos on 01-05-2025 Aortic Sinus Valsalva 2.8 cm [employer] Phone: Aortic Sinus Valsalva Index 1.41 cm/m2 [employer] Work Phone: AV Cusp Mmode 1.7 cm [employer] Phone: AV Mean Gradient 5 mmHg [employer] Work Phone: AV Mean Velocity 1 m/s [employer] Work Phone: AV Peak Gradient 9 mmHg [employer] Work Phone: AV Peak Velocity 1.5 m/s [employer] Work Phone: AV Velocity Ratio 0.87 [employer] Phone: AV VTI 33.4 cm [employer] Phone: Body surface area Derived from formula 2.08 m2 [employer] Work Phone: E/E' Lateral 10.84 [employer] Phone: EF BP 62 % 55 - 100 % [employer] Work Phone: EF Physician 60 % [employer] Phone: Fractional Shortening 2D 31 % 28 - 44 % [employer] Phone: Interpretation and review of laboratory results Abnormal [employer] Phone: IVSd 1.1 cm Abnormal 0.6 - 0.9 cm [employer] Phone: LA Area 2C 16.9 cm2 [employer] Phone: LA Area 4C 14.9 cm2 [employer] Phone: LA Major Sorrento 4.9 cm [employer] Phone: LA Minor Sorrento 5 cm [employer] Work Phone: LA Volume BP 41 mL 22 - 52 mL [employer] Work Phone: LA Volume Index BP 21 ml/m2 16 - 34 ml/m2 [employer] Work Phone: LA Volume Index MOD A2C 24 ml/m2 16 - 34 ml/m2 [employer] Work Phone: LA Volume Index MOD A4C 18 ml/m2 16 - 34 ml/m2 [employer] Work Phone: LA Volume MOD A2C 47 mL 22 - 52 mL [employer] Work Phone: LA Volume MOD A4C 35 mL 22 - 52 mL [employer] Phone: LV E' Lateral Velocity 7.29 cm/s [employer] Phone: LV EDV A2C 88 mL [employer] Work Phone: LV EDV A4C 73 mL [employer] Work Phone: LV EDV Index A2C 44 mL/m2 [employer] Work Phone: LV EDV Index A4C 37 mL/m2 [employer] Work Phone: LV Ejection Fraction A2C 63 % [employer] Work Phone: LV Ejection Fraction A4C 55 % [employer] Work Phone: LV ESV A2C 33 mL [employer] Work Phone: LV ESV A4C 33 mL [employer] Work Phone: LV ESV Index A2C 17 mL/m2 [employer] Work Phone: LV ESV Index A4C 17 mL/m2 [employer] Work Phone: LV Mass 2D 175 g Abnormal 67 - 162 g [employer] Work Phone: LV Mass 2D Index 87.9 g/m2 43 - 95 g/m2 [employer] Work Phone: LV RWT Ratio 0.49 [employer] Phone: LVIDd 4.5 cm 3.9 - 5.3 cm [employer] Work Phone: LVIDd Index 2.26 cm/m2 [employer] Work Phone: LVIDs 3.1 cm [employer] Work Phone: LVIDs Index 1.56 cm/m2 [employer] Work Phone: LVOT Mean Gradient 3 mmHg Bon Se [employer] Work Phone: LVOT Peak Gradient 6 mmHg [employer] Phone: LVOT Peak Velocity 1.3 m/s [employer] Phone: LVOT VTI 29.4 cm [employer] Phone: LVOT:AV VTI Index 0.88 [facility] [employer] Phone: LVPWd 1.1 cm Abnormal 0.6 - 0.9 cm [employer] Phone: MV A Velocity 1 m/s [employer] Phone: MV E Velocity 0.79 m/s [employer] Work Phone: MV E Wave Deceleration Time 232 ms [employer] Work Phone: MV E/A 0.79 [employer] Phone: PV Max Velocity 0.9 m/s [employer] [facility] [employer] Work Phone: PV Peak Gradient 3 mmHg [employer] Phone: TAPSE 3.1 cm 1.7 cm [employer] Work Phone: [employer] Work Phone: Cardiac echo study Procedure on 01-05-2025 Left Ventricle: Norm al left ventricular systolic function with a visually estimated EF of 60 - 65%. Left ventricle size is normal. Mildly increased wall thickness. Normal wall motion. Grade I diastolic dysfunction with normal LAP. No significant valvular heart disease was seen. Image quality is adequate. No previous studies were available for comparison. No significant cardiac cause of hypotension was identified from this study. Left Ventricle Normal left ventricular systolic function with a visually estimated EF of 60 - 65%. Left ventricle size is normal. Mildly increased wall thickness. Normal wall motion. Grade I diastolic dysfunction with normal LAP. Right Ventricle Right ventricle size is normal. Normal systolic function. Left Atrium Left atrium size is normal. Right Atrium Right atrium size is normal. IVC/SVC IVC diameter is less than or equal to 21 mm and decreases greater than 50% during inspiration; therefore the estimated right atrial pressure is normal (~3 mmHg). IVC size is normal. Mitral Valve Valve structure is normal. No regurgitation. No stenosis noted. Tricuspid Valve Valve structure is normal. No regurgitation. No stenosis noted. Aortic Valve Valve structure is normal. No regurgitation. No stenosis. Pulmonic Valve The pulmonic valve visualization is suboptimal but appears to be functioning normally. Physiologically normal regurgitation. No stenosis noted. Ascending Aorta Normal sized aortic root. Pericardium No pericardial effusion. Study Details Image quality: adequate. No contrast was given. [facility] CV CPACS Radiology Study observation (narrative) [employer] EKG 12 LeadOrdered By: Bonnie Harrell hmad on 01-05-2025 Atrial Rate 49 BPM [employer] Phone: P Sorrento 58 degrees [employer] Phone: P-R Interval 188 ms [employer] Phone: Q-T Interval 488 ms [employer] Phone: QRS Duration 134 ms [employer] Phone: QTc Calculation (Bazett) 440 ms [employer] Phone: R Sorrento -63 degrees [employer] Phone: T Sorrento 82 degrees [employer] Phone: Ventricular Rate 49 BPM [employer] [facility] [facility] Work Phone: Mars Carrion [facility] Work Phone: EKG 12 Leadon 01-05-2025 Sinus bradycardia Left axis deviation Non-specific intra-ventricular conduction block Cannot rule out Anterior infarct , age undetermined Abnormal ECG No previous ECGs available Confirmed by Bonnie Dawkins MD ([id number]) on 01/05/2025 10:57:39 AM [facility] RADIOLOGY Bonnie Dawkins MD - 01/05/2025 Sinus bradycardia Left axis deviation Non-specific intra-ventricular conduction block Cannot rule out Anterior infarct , age undetermined Abnormal ECG No previous ECGs available Confirmed by Bonnie Dawkins MD ([id number]) on 01/05/2025 10:57:39 AM [facility] EKG Rhythm Stripon [facility] FLUORO FOR SURGICAL PROCEDUR ESon 01-05-2025 FLUORO FOR SURGICAL PROCEDURES Radiology exam is complete. No Radiologist dictation. Please follow up with ordering provider. Final result Normal [facility] Glucose, Whole Bloodon 01-05 Glucose [Mass/Vol] 136 mg/dL High 74 - 100 mg/dL [facility] Interpretation and review of laboratory results Abnormal [facility] Glucose [Mass/Vol] 136 mg/dL High 74-100 [facility] Guidance-- during surgeryon 01-05-2025 Radiology exam is complete. No Radiologist dictation. Please follow up with ordering provider. [facility] RIS CONSOLIDATED Microscopic Urinalysison Epithelial cells LM.HPF (Urine sed) [#/Area] 0 TO 2 [facility] RBC LM.HPF (Urine sed) [#/Area] None [facility] WBC LM.HPF (Urine sed) [#/Area] None [facility] UA w/Reflex Cultureon 2024 Bilirubin, SemiQt,Ur Negative Normal NEG [facility] Comment on above: Performed By: #### U AX, UMICAO #### [facility] [address] [place], [place] [id number] Bush Hog Operator: Anusha Lea MD Blood, Urine Negative Normal NEG [facility] Comment on above: Performed By: #### U AX, UMICAO #### [facility] [address] [place], [place] [id number] Bush Hog Operator: Anusha Lea MD Clarity (U) Clear Normal CLEAR [facility] Comment on above: Performed By: #### U AX, UMICAO #### [facility] [address] [place], [place] [id number] [employer] Operator: Anusha Lea MD Color (U) Yellow Normal YEL [facility] Comment on above: Performed By: #### U AX, UMICAO #### [facility] [address] [place], [place] 2020[address]83 [employer] Operator: Anusha Lea MD Glucose Ql (U) Negative Normal NEG [facility] Comment on above: Performed By: #### U AX, UMICAO #### [facility] [address] [place] [address] [place], [place] [id number] [employer] Operator: Anusha Lea MD Ketones Ql (U) Negative Normal NEG [facility] in [facility] Comment on above: Performed By: #### U AX, UMICAO #### [facility] [address] [place], [place] [id number] [employer] Operator: Anusha Lea MD Leukocyte esterase Test strip Ql (U) Negative Normal NEG [facility] Comment on above: Performed By: #### U AX, UMICAO #### [facility] [address] [place], [place] [id number] [employer] Operator: Anusha Lea MD Nitrite,Ur Negative Normal NEG [facility] Comment on above: Performed By: #### U AX, UMICAO #### [facility] [address] [place], [place] [phone] [employer] Operator: Anusha Lea MD PH,Ur 7.5 Normal 5.0-9.0 [facility] Comment on above: Performed By: #### U AX, UMICAO #### [facility] [address] [place], [place] [id number] Bush [employer] Operator: Anusha Lea MD Protein Ql (U) Negative Normal NEG [facility] in Hospital Comment on above: Performed By: #### U AX, UMICAO #### [facility] [address] [place], [place] [id number] [employer] Operator: Anusha Lea MD Spec. Melber,Ur <1.005 Low 1.010-1.02 0 [facility] Comment on above: Performed By: #### U AX, UMICAO #### [facility] [address] [place], [place] [phone] [employer] Operator: Anusha Lea MD Urobilinogen,Ur Normal Normal 0.0-1.0 [facility] Comment on above: Performed By: #### U AX, UMICAO #### [facility] [address] [place] [address] [place]. [place], [place] [phone] Bush [employer] Operator: Anusha Lea MD Urinalysis with Reflex to Cu ltureon 01-05-2025 Bilirubin Ql (U) Negative NEGATIVE [facility] Clarity (U) Clear Clear [facility] Color (U) Yellow Yellow [facility] Glucose Test strip (U) [Mass/Vol] Negative NEGATIVE mg/dL [facility] Hemoglobin Auto test strip Ql (U) Negative NEGATIVE [facility] Interpretation and review of laboratory results Abnormal [facility] Ketones (U) [Mass/Vol] Negative NEGAT JUNIOR mg/dL [facility] Leukocyte esterase Test strip Ql (U) Negative NEGATIVE Bon [facility] Nitrite Ql (U) Negative NEGATIVE [facility] pH (U) 7.5 [pH] 5.0 - 9.0 [facility] Protein (U) [Mass/Vol] Negative NEGAT JUNIOR mg/dL [facility] Specific gravity (U) [Rel density] Low 1.010 - 1.020 [facility] Urobilinogen Qn (U) Normal 0.0 - 1. 0 EU/dL [facility] Urinalysis,Microon 5 Epithelial cells LM Ql (Urine sed) 0 TO 2 Normal 0-25 [facility] Comment on above: Performed By: #### U AX, UMICAO #### [facility] [address] [place] [place] [address] [employer] Operator: Anusha Lea MD Urine RBC's None Normal 0-2 [facility] Comment on above: Performed By: #### U AX, UMICAO #### [facility] [address] [place] [place] [address] Bush Hog Operator: Anusha Lea MD Urine WBC's None Normal 0-5 [facility] Comment on above: Performed By: #### U AX, UMICAO #### [facility] [address] [place] [address] [employer] Hog Operator: Anusha Lea MD XR CHEST (2 VW)on 01-05-2025 XR CHEST (2 VW) EXAMINATION: TWO XRAY VIEWS OF THE CHEST 01/05/2025 1:51 pm COMPARISON: None. HISTORY: ORDERING SYSTEM PROVIDED HISTORY: hypotension TECHNOLOGIST PROVIDED HISTORY: hypotension FINDINGS: The lungs are without acute focal process. There is no effusion or pneumothorax. The cardiomediastinal silhouette is without acute process. The osseous structures are without acute process. IMPRESSION: No acute process. Interpreted by: Lucila Westfall MD Signed by: Lucila Westfall MD 01/05/25 Final result Normal [facility] XR Chest 2 Viewson 5 No acute process. [facility] RIS CONSOLIDATED EXAMINATION: TWO XRAY VIEWS OF THE CHEST 01/05/2025 1:51 pm COMPARISON: None. HISTORY: ORDERING SYSTEM PROVIDED HISTORY: hypotension TECHNOLOGIST PROVIDED HISTORY: hypotension FINDINGS: The lungs are without acute focal process. There is no effusion or pneumothorax. The cardiomediastinal silhouette is without acute process. The osseous structures are without acute process. [facility] Lucila Arevalo MD - 01/05/2025 EXAMINATION: TWO XRAY VIEWS OF THE CHEST 01/05/2025 1:51 pm COMPARISON: None. HISTORY: ORDERING SYSTEM PROVIDED HISTORY: hypotension TECHNOLOGIST PROVIDED HISTORY: hypotension FINDINGS: The lungs are without acute focal process. There is no effusion or pneumothorax. The cardiomediastinal silhouette is without acute process. The osseous structures are without acute process. IMPRESSION: No acute process. [facility] Radiology Study observation (narrative) [facility] XR Chest 2 ViewsOrdered By: Lucila Westfall on 01-05-2025 [facility] Work Phone: Cult,Aerobe/Anaerobeon 11-19 Cult,Aerobe/Anaerobe Specimen Descriptio n .JOINT FLUID .KNEE LEFT 6.8mL Special Requests .JOINT FLUID .KNEE LEFT Direct Exam FEW NEUTROPHILS NO ORGANISMS SEEN Culture NO GROWTH 5 DAYS Report Status FINAL 11/19/2024 Normal [facility] Comment on above: Performed By: #### A ANC #### [facility] [employer] [address] [place] [address] Bush Hog Operator: Rocco Salas MD [facility] [address] [place] [address] [place] [address] [employer] Hog Operator: Anusha Lea MD Crystals, Fluidson 5 Crystals,Fluid Negative Normal NEG [facility] in Hospital Comment on above: Result Comment: NO C RYSTALS SEEN Performed By: #### F LCRYS #### [facility] [employer] [address] [place] [address] Bush Hog Operator: Rocco Salas MD [facility] [address] [place] [address] [place] [address] [employer] Hog Operator: Anusha Lea MD #### FLDCT #### [facility] [address] [place], [place] [phone] [employer] Operator: Anusha Lea MD Pathologist Review: ELECTRONICALLY AUSTIN ALDRICH M.D. Normal [facility] Comment on above: Performed By: #### F LCRYS #### [facility] [address] [place] [address] Bush Hog Operator: Rocco Salas MD [facility] [address] [place] [address] [place], [place] [phone] [employer] Operator: Anusha Lea MD #### FLDCT #### [facility] [address] [place] [address] [place] [address] [employer] Operator: Anusha Lea MD Cell Count with Differential , Body Fluidon 11-14-2024 Appearance (Body fld) SLIGHTLY CLOUDY [facility] Blasts/100 WBC (Body fld) 0 % [facility] Cells Counted 50 Bon [facility] Color (Body fld) Yellow [facility] Eosinophils/100 WBC (Body fld) 0 % [facility] Fluid Nom (Body fld) .JOINT FLUID Misha n [facility] Interpretation and review of laboratory results Abnormal [facility] Lymphocytes/100 WBC (Body fld) 72 % High 0 Bon [facility] Monocytes/100 WBC (Body fld) 0 % Bon [facility] Neutrophils/100 WBC (Body fld) 28 % High 0 [facility] RBC (Body fld) [#/Vol] 8000 10*3/uL cells/uL Bon [facility] Unidentified cells/100 WBC (Body fld) 0 % [facility] WBC (Body fld) [#/Vol] 156 10*3/uL cells/uL [facility] Fluid Cell Count and Diffon 11-14-2024 Basophils Normal 0 [facility] Comment on above: Performed By: #### F LCRYS #### [facility] [address] [place] [address] Bush Hog Operator: Rocco Salas MD [facility] [address] [place] [address] [place] [address] [employer] Operator: Anusha Lea MD #### FLDCT #### [facility] [address] [place] [address] [employer] Operator: Anusha Lea MD Eosinophils Normal 0 [facility] Comment on above: Performed By: #### F LCRYS #### [facility] [address] [place] [address] Bush Hog Operator: Rocco Salas MD [facility] [address] [place] [address] [place] [place], [place] [phone] [employer] Operator: Anusha Lea MD #### FLDCT #### [facility] [address] [place] [address] [place], [place] 7383583 Bush [employer] Operator: Anusha Lea MD Lymphocytes/100 WBC (Bld) 72 % High 0 [facility] Comment on above: Performed By: #### F LCRYS #### [facility] [address] [place] [address] Bush Hog Operator: Rocco Salas MD [facility] [address] [place] [address] [place] [address] Bush Hog Operator: Anusha Lea MD #### FLDCT #### [facility] [address] [place] [address] [place]. [place], [place] [phone] Bush Hog Operator: Anusha Lea MD Cl[place]am/Macrophage Normal [address] [place] [address] Comment on above: Performed By: #### F LCRYS #### [facility] [address] [place] [address] Bush Hog Operator: Rocco Salas MD [facility] [address] [place] [address] [place], [place] [phone] Bush [employer] Operator: Anusha Lea MD #### FLDCT #### [facility] [address] [place] [address] [place] [address] [employer] Hog Operator: Anusha Lea MD Neutrophils/100 WBC (Bld) 28 % High 0 [facility] Comment on above: Performed By: #### F LCRYS #### [facility] [address] [place] [address] Bush Hog Operator: Rocco Salas MD [facility] [address] [place] [address] Bush Hog Operator: Anusha Lea MD #### FLDCT #### [facility] [address] [place] [address] [employer] Hog Operator: Anusha Lea MD Other Cells Normal [address] [place] [address] Comment on above: Performed By: #### F LCRYS #### [facility] [address] [place] [address] Bush Hog Operator: Rocco Salas MD [facility] [address] [place] [address] [place] [address] [employer] Hog Operator: Anusha Lea MD #### FLDCT #### [facility] [address] [place] [address] [place] [address] [employer] Hog Operator: Anusha Lea MD Total Cells Counted 50 Normal [facility] Comment on above: Performed By: #### F LCRYS #### [facility] [address] [place] [address] Bush Hog Operator: Rocco Salas MD [facility] [address] [place] [address] [place] [address] Bush Hog Operator: Anusha Lea MD #### FLDCT #### [facility] [address] [place] [address] Bush Hog Operator: Anusha Lea MD Appearance (U) SLIGHTLY CLOUDY [facility] Comment on above: Performed By: #### F LCRYS #### [facility] [address] [place] [address] Bush Hog Operator: Rocco Salas MD [facility] [address] [place] [address] [place] [address] [employer] Operator: Anusha Lea MD #### FLDCT #### [facility] [address] [place] [address] [place] [address] Bush Hog Operator: Anusha Lea MD Color (U) Yellow [facility] Comment on above: Performed By: #### F LCRYS #### [address] [address] [employer] Operator: Rocco Salas MD [address] [place], [place] 3829[address] [employer] Operator: Anusha Lea MD #### FLDCT #### [address] [place], [place] 6437[address] Bush [employer] Operator: Anusha Lea MD RBC (Bld) [#/Vol] 0.008 10*6/uL Normal [facility] Comment on above: Performed By: #### F LCRYS #### [address] [address] [employer] Operator: Rocco Salas MD [address] [place] [address] [employer] Operator: Anusha Lea MD #### FLDCT #### [facility] [address] [place] [address] [place] [address] Bush Hog Operator: Anusha Lea MD WBC (Bld) [#/Vol] 0.156 10*3/uL [facility] Comment on above: Performed By: #### F LCRYS #### [facility] [address] [place] [address] [employer] Operator: Rocco Salas MD [facility] [address] [place] [address] [place], [place] [phone] Bush Hog Operator: Anusha Lea MD #### FLDCT #### [facility] [address] [place] [address] Bush Hog Operator: Anusha Lea MD Type of Specimen .JOINT FLUID Normal [facility] Comment on above: Performed By: #### F LCRYS #### [facility] [address] [place] [address] Bush Hog Operator: Rocco Salas MD [facility] [address] [place], [place] 229[address]83 Bush Hog Operator: Anusha Lea MD #### FLDCT #### [facility] [address] [place] [address] Bush Hog Operator: Anusha Lea MD 07 Addendum Reporton 024 07 Addendum Report [address] [address]- Surgical Pathology Report Collected Date/Time: 06/01/2024 12:32 EDT Pathologist: Bhaskar BRYANT, Mitesh Received Date/Time: 06/02/2024 09:06 EDT Silvestre Bejarano MD, Glen Bejarano MD, Glen Ta 07 Addendum Report - 06/09/2024 14:07 EDT - Auth (Verified) Addendum IHC stains are negative for Helicobacter pylori. Appropriate reactive controls are performed and reviewed (Electronic Signature) Adilson Frazier MD 06/09/2024 14:07 Addendum Reason H pylori. [...] examined esophagus. Empiric dilation with Delcid 54 Thai was done, no mucosal disruption was noted [...] is entirely submitted in one cassette. (DC) DC:[facility] Microscopic Description Microscopic examination performed unless gross only specified. The use of one or more reagents in the above tests is regulated as an analyte specific reagent (ASR). The test or tests are ordered following initial H&E microscopic examination. The performance characteristics were determined by the Laboratory of [facility]. They have not been cleared or approved by the US Food and Drug Administration. The FDA has determined that such clearance or approval is not necessary. These tests are used for clinical purposes. They should not be regarded as investigational or for research. Appropriate positive and negative controls are performed and are acceptable. Normal [facility] Comment on above: Performed By: #### C [id number] #### [facility] [address] [place] [address] Patient Letter FTon 2023 Patient Letter [facility] Patient Letter [facility] June 06, 2024 RENUKA GRAHAM [address] [place] [id number] : 1955 Below is a summary of [...] if you wish to make an appointment. [facility] [phone] Normal [facility] Reminderson 06-06-2024 Reminders Reminders From: Lisa Cunningham I To: [facility] - Reminders/Recalls; Sent: 06/06/2024 10:26:14 EDT Show up: 03/19/2034 10:26:00 EDT Subject: Colonoscopy recall Reminder/Recall [address] Bejarano 06/01/2034 Normal [facility] Surgical Pathology Reporton 06-03-2024 Surgical Pathology Report [facility] [place] [address]- Surgical Pathology Report Collected Date/Time: 06/01/2024 12:32 EDT Pathologist: Mitesh Muro MD Received Date/Time: 06/02/2024 09:06 EDT Silvestre Bejarano MD, Glen Bejarano MD, Glen Ta 07 Surgical Pathology Report - 06/03/2024 15:20 EDT - Auth (Verified) Final Diagnosis STOMACH, BIOPSY: Chronic inactive gastritis. (Electronic Signature) Mitesh Muro MD 06/03/2024 15:20 Clinical Information Dysphagia, history of gastric bypass, diverticular disease Pre-Op Diagnosis: Dysphagia, history of gastric bypass, diverticular disease Procedure: EGD Post-Op Diagnosis: 1. Esophageal landmarks identified, normal examined esophagus. Empiric dilation with Delcid 54 Thai was done, no mucosal disruption was noted [...] is entirely submitted in one cassette. (DC) DC:[facility] Microscopic Description Microscopic examination performed unless gross only specified. The use of one or more reagents in the above tests is regulated as an analyte specific reagent (ASR). The test or tests are ordered following initial H&E microscopic examination. The performance characteristics were determined by the Laboratory of [facility]. They have not been cleared or approved by the US Food and Drug Administration. The FDA has determined that such clearance or approval is not necessary. These tests are used for clinical purposes. They should not be regarded as investigational or for research. Appropriate positive and negative controls are performed and are acceptable. Normal [facility] Comment on above: Performed By: #### [id number] #### [facility] [address] [place] [address] Main OR Intraoperative Recor don 06-02-2024 Main OR Intraoperative Record Main OR Intraoperative Record IntraOp Document Type FT Summary Primary Physician: Glen Bejarano MD Finalized Date/Time: 06/02/24 08:36:22 Pt. Name: RENUKA GRAHAM Shaun SinghB./Sex: 1955 Female Med Rec #: [id number] Physician: Glen Bejarano MD Financial #: [id number] Pt. Type: O Room/Bed: / Admit/Disch: 06/01/24 10:48:01 - 06/01/24 23:59:59 Institution: Case Times FT Entry 1 Patient Times In Room 06/01/24 12:25:00 Out Room 06/01/24 13:09:00 Procedure Times Start 06/01/24 12:29:00 Stop 06/01/24 13:07:00 Anesthesia Times Start 06/01/24 12:25:00 Stop 06/01/24 13:09:00 Time at [facility] 06/01/24 12:58:00 Last Modified By: Vitaliy Mcclure RN 06/01/24 13:15:43 General Comments: 1233 EGD completed MSRN 1236 Colonoscopy started MSRN 06/02/24 Chart opened to review and send charges [facility]FA Case Attendance FT Entry 1 Entry 2 Entry 3 Case Attendee Vlad Loera DO, RN, Margarette Blackwell Role Performed Anesthesiologist of Retouching Operator - Primary Scrub - Primary Record Time In 06/01/24 12:25:00 06/01/24 12:25:00 06/01/24 12:25:00 Time Out 06/01/24 13:09:00 06/01/24 13:09:00 06/01/24 13:09:00 Procedure EGD AND COLONOSCOPY(.) EGD AND COLONOSCOPY(.) EGD AND COLONOSCOPY(.) Comments Last Modified By: Kami REYNA, Vitaliy Mcclure RN, Vitaliy Mcclure RN, Vitaliy Holley 06/01/24 13:16:18 06/01/24 13:16:18 06/01/24 13:16:18 Entry 4 Entry 5 Case Attendee Phil HSIEH, Jacqueline Bejarano MD, Glen Ta Role Performed Staff - Other Surgeon - Primary Time In 06/01/24 12:35:00 06/01/24 12:25:00 Time Out 06/01/24 13:09:00 06/01/24 13:09:00 Procedure EGD AND COLONOSCOPY(.) EGD AND COLONOSCOPY(.) Comments help in room Last Modified By: Vitaliy Mcclure RN, RN, Morgan E 06/01/24 13:16:18 06/01/24 13:16:18 Perioperative Protocols FT [...] (If Applicable) PreOp Antibiotic No Time Out Vlad Loera DO, Vitaliy Mcclure RN, Sarmini MD, [...] dilator. Colonoscopy Primary Procedure Yes Primary Surgeon SarGlen oliver MD Start 06/01/24 12:29:00 Stop 06/01/24 13:07:00 Anesthesia [...] physical alterations that require additional precautions for proce (more content not included)... Normal [facility] Discharge Instructionson Discharge Instructions Discharge Instruc tions RENUKA GRAHAM :1955 Visit Date:06/01/2024 Inpatient Discharge Instructions Your [...] sulfate fluticasone nasal (fluticasone 0.05 mg/inh Nasal [place]) gabapentin (gabapentin 300 mg Cap) hydrOXYzine magnesium gluconate (magnesium gluconate 500 mg oral tablet) midodrine (midodrine 2.5 mg oral tablet) ondansetron (ondansetron 4 mg Tab) pantoprazole phentermine (phentermine 37.5 mg Tab) polycarbophil (Fiber Tabs) sucralfate (Carafate 1 gram Tab) temazepam tizanidine topiramate (topiramate 25 mg Tab) Procedure History Colonoscopy (06/01/2024), Esophagogastroduodenosco py (06/01/2024), EGD (esophagogastroduodenosc opic) electrohydraulic lithotripsy of bezoar in stomach (06/15/2019), [...] Follow Up with Darci BRYANT, KLAUS Parsons, [facility] When: Comments: Call for any problems. Office to call for follow up appointment. Where: [address] [place] [address], [address] [address] [phone] Medications What How Much When Instructions Next [...] fluticasone nasal (fluticasone 0.05 mg/ inh Nasal [place]) 2 Sprays Nasal Inhalation Every day Unchanged [...] and refer to this sheet in the (more content not included)... Normal [facility] Comment on above: Result Comment: Elec tronically Signed By: Oliver REYNA, Sharon Goldman\.juanita\Date and Time Signed: 06/01/24 13:15 EDT Inpatient Patient Summaryon 06-01-2024 Inpatient Patient Summary Inpatient Patient Summary [place] [id number] [facility] Clinical Discharge Instructions PERSON INFORMATION Name: RENUKA GRAHAM PHYSICIANS Admitting Physician: Glen Bejarano MD Attending Physician: Glen Bejarano MD PCP: PETER SOSA DO Diagnosis: Colon polyps; Dysphagia Comment: PATIENT EDUCATION INFORMATION Instructions: Medication Leaflets: Follow up: MEDICATION LIST Medications to Continue Taking That Have Changed Other Medications START: budesonide-formoterol (Symbicort 160/4.5 inhalation aerosol with adapter) 10 gm, 0 Refill(s), INHALE 2 PUFFS TWICE A DAY., Responsible Provider: YUAN ROMEO START: gabapentin (gabapentin 300 mg Cap) 1 [...] MOUTH TWICE A DAY., Responsible Provider: MABEL ORTEGA cholecalciferol (Vitamin D3) Oral. cholecalciferol (Vitamin D3) By Mouth 2 times a day. cyclobenzaprine 10 Unknown, Oral. duloxetine (duloxetine 30 mg oral delayed release capsule) 1 Unknown, 0 Refill(s). ferrous sulfate 2,000 Milligram By Mouth 2 times a day. fluticasone nasal (fluticasone 0.05 mg/inh Nasal [place]) 2 Sprays Nasal Inhalation every day. hydrOXYzine [...] TABLETS BY MOUTH ONCE DAILY., Responsible Provider: PETER SOSA Comment: [facility] Main OR PACU I Recordon 05-19 Main OR PACU I Record Main OR PACU I Rec ord PACU Phase I Document Type FT Summary Primary Physician: Glen Bejarano MD Finalized Date/Time: 06/01/24 13:51:48 Pt. Name: RENUKA GRAHAM/Sex: 1955 Female Med Rec #: [id number] Physician: Glen Bejarano MD Financial #: [id number] Pt. Type: O Room/Bed: / Admit/Disch: 06/01/24 [...] I Outcomes Met? Yes Last Modified By: Sharon Boyd RN 06/01/24 13:51:33 Post-Care Text: The patient demonstrates [...] Signed By: Sharon Boyd RN 06/01/24 13:51 [facility] Main OR Preoperative Recordo n 06-01-2024 Main OR Preoperative Record Main OR Preoperative Record Holding Area Document Type FT Summary Primary Physician: Glen Bejarano MD Finalized Date/Time: 06/01/24 11:20:31 Pt. Name: RENUKA GRAHAM /Sex: 1955 Female Med Rec #: [id number] Physician: Glen Bejarano MD Financial #: [id number] Pt. Type: O Room/Bed: / Admit/Disch: 06/01/24 [...] Signed By: Vitaliy Mcclure RN 06/01/24 11:20 Normal [facility] Outpatient Surgery Discharge Instructionon 06-01-2024 Outpatient Surgery Discharge Instruction Outpatient Surgery Discharge Instruction [place] [id number] Patient Discharge Instructions PERSON INFORMATION Name: RENUKA GRAHAM Date of : 1955 Current Date: 06/01/2024 12:24:29 PHYSICIANS Admitting Physician: Glen Bejarano MD Discharge Diagnosis: Colon polyps; Dysphagia RENUKA GRAHAM [...] THE NEAREST EMERGENCY ROOM OR CALL 911 I, RENUKA GRAHAM, have received the attached patient education materials/instructions and have verbalized understanding: May we do a follow up call? Yes No I was present when discharge instructions were given Patient Signature Date Clinican/Nurse Signature Date Follow up: Pharmacy Information: You may receive a survey from [employer] asking you to rate your care experience. Your feedback is important and will help us understand what we do well and how we can improve the quality of care we provide to you, your loved ones and our community. It?s an honor to serve you. Thank you for choosing [facility] HERE ARE THE MEDICATION CHANGES THAT OCCURRED DURING YOUR HOSPITAL STAY Medications to Continue Taking That Have Changed Other Medications START: budesonide-formoterol (Symbicort 160/4.5 inhalation aerosol with adapter) 10 gm, 0 Refill(s), INHALE 2 PUFFS TWICE A DAY., Responsible Provider: YUAN ROMEO START: gabapentin (gabapentin 300 mg Cap) 1 [...] MOUTH TWICE A DAY., Responsible Provider: MABEL ORTEGA cholecalciferol (Vitamin D3) Oral. cholecalciferol (Vitamin D3) By Mouth 2 times a day. cyclobenzaprine 10 Unknown, Oral. duloxetine (duloxetine 30 mg oral delayed release capsule) 1 Unknown, 0 Refill(s). ferrous sulfate 2,000 Milligram By Mouth 2 times a day. fluticasone nasal (fluticasone 0.05 mg/inh Nasal [place]) 2 Sprays Nasal Inhalation every day. hydrOXYzine [...] TABLETS BY MOUTH ONCE DAILY., Responsible Provider: PETER SOSA PATIENT EDUCATION INFORMATION Instructions: Medication Leaflets: Normal [facility] Bacteria Spec Anaerobe Culto n 05-25-2024 Bacteria identified Anaer cx Nom (Unsp spec) Culture, Anaerobic Status = F No anaerobes grown after 4 days. Normal [facility] Comment on above: Performed By: #### 6 35-3 #### [facility] [address] [place] [address] Bacteria Spec BFld Culton Bacteria identified Sterile [...] to a previously preliminary verified report. Normal [facility] Comment on above: Performed By: #### 6 36-1 #### [facility] [address] [place] [address] Bacteria identified Anaer cx Nom (Unsp spec)Ordered By: Kaur Pierre on 05-25-2024 Bacteria Spec Anaerobe Cult Culture, Anaerobic Status = F No anaerobes grown after 4 days. [facility] Bacteria identified Sterile body fluid culture Nom (Unsp spec)Ordered By: Kaur Pierre on 05-25-2024 Bacteria Spec BFld Cult Fluid Culture Status = F No growth at 3 days [facility] Bacteria Spec BFld Cult Gram Stain Result Status = F No Polymorphonuclear leukocytes [facility] Bacteria Spec BFld Cult This is an appended report. These results have been appended to a previously preliminary verified report. [facility] Bacteria Spec BFld Cult No Epithelial cells [facility] Bacteria Spec BFld Cult No organisms seen [facility] Cell count panel (Body fld)o n 05-25-2024 Fluid Basophils 1.0 % Normal [facility] Comment on above: Order Comment: The r eference range and other method performance specifications have not been established for this fluid specimen. The test result should be integrated into the clinical context for interpretation. Performed By: #### 3 4556-1 #### [facility] [address] [place] [address] Fluid Eosinophils 11.0 % Normal [facility] Comment on above: Order Comment: The r eference range and other method performance specifications have not been established for this fluid specimen. The test result should be integrated into the clinical context for interpretation. Performed By: #### 3 4556-1 #### [facility] [address] [place] [address] Fluid Lymphocytes 3.0 % Normal [facility] Comment on above: Order Comment: The r eference range and other method performance specifications have not been established for this fluid specimen. The test result should be integrated into the clinical context for interpretation. Performed By: #### 3 4556-1 #### [facility] [address] [place] [address] Fluid Monocytes/Macrophages 9.0 % Normal [facility] Comment on above: Order Comment: The r eference range and other method performance specifications have not been established for this fluid specimen. The test result should be integrated into the clinical context for interpretation. Performed By: #### 3 4556-1 #### [facility] [address] [place] [address] Fluid Neutrophils 76.0 % Normal [facility] Comment on above: Order Comment: The r eference range and other method performance specifications have not been established for this fluid specimen. The test result should be integrated into the clinical context for interpretation. Performed By: #### 3 4556-1 #### [facility] [address] [place] [address] Cell count panel (Body fld)O rdered By: Kaur Pierre on 05-25-2024 Cell Cnt Pnl Fld Knee [facility] Cell Cnt Pnl Fld Cloudy [facility] Cell Cnt Pnl Fld Red [facility] Cell Cnt Pnl Fld [id number] /mm3 [facility] Comment on above: The reference range and other method performance specifications have not been established for this fluid specimen. The test result should be integrated into the clinical context for interpretation. Cell Cnt Pnl Fld 406 /mm3 [facility] Comment on above: The reference range and other method performance specifications have not been established for this fluid specimen. The test result should be integrated into the clinical context for interpretation. Differential panel (Body fld )Ordered By: Kaur Pierre on 05-25-2024 Diff Pnl Fld 76.0 % [facility] Diff Pnl Fld 3.0 % [facility] Diff Pnl Fld 9.0 % [facility] Diff Pnl Fld 11.0 % [facility] Diff Pnl Fld 1.0 % [facility] Fungus Skin Culton Fungus identified Cx Nom (Skin) Culture, Fungus Status = F No growth at 4 weeks Normal [facility] Comment on above: Performed By: #### 5 75-1 #### [facility] [address] [place] [address] Fungus identified Cx Nom (Sk in)Ordered By: Kaur Pierre on 05-25-2024 Fungus Skin Cult Culture, Fungus Stat us = F No growth at 4 weeks [facility] Mycobacterium Spec Ql Culton 05-25-2024 Mycobacterium sp Org specific cx Ql (Unsp spec) Culture AFB Status = F No growth at 8 weeks AFB Stain Status = F No acid fast bacilli seen Normal [facility] Comment on above: Performed By: #### 5 0941-4 #### [facility] [address] [place] [address] Ambulatory Visit Summaryon 0 03-28-2024 Ambulatory Visit Summary RENUKA GRAHAM :1955 Visit Date:03/28/2024 Ambulatory Visit Instructions Your Diagnosis Diverticular disease Dysphagia History of gastric bypass Obesity CHF (congestive heart failure) COPD type B Colon polyps Your Care Team Attending Physician - Glen Bejarano MD Primary Care Physician - PETER SOSA DO Referring Physician - PETER SOSA DO This Is Your Medications List Contact prescribing physician if questions or concerns acetaminophen-oxycodone (acetaminophen-oxycodone 325 mg-5 mg oral tablet) albuterol (albuterol HFA 90 mcg/inh MDI) alendronate (alendronate 5 mg oral tablet) allopurinol budesonide-formoterol (Symbicort 160/4.5 inhalation aerosol with adapter) budesonide-formoterol (Symbicort) bumetanide (bumetanide 1 mg Tab) cholecalciferol (Vitamin D3) cholecalciferol (Vitamin D3) cyclobenzaprine duloxetine (duloxetine 30 mg oral delayed release capsule) ferrous sulfate fluticasone nasal (fluticasone 0.05 mg/inh Nasal [place]) gabapentin (gabapentin 300 mg Cap) hydrOXYzine midodrine (midodrine 2.5 mg oral tablet) ondansetron (ondansetron 4 mg Tab) pantoprazole phentermine (phentermine 37.5 mg Tab) polycarbophil (Fiber Tabs) sucralfate (Carafate 1 gram Tab) temazepam tizanidine topiramate (topiramate 25 mg Tab) Procedures Performed EGD (esophagogastroduodenosc opic) electrohydraulic lithotripsy of bezoar in stomach (06/15/2019), Colonoscopy (08/02/2018), Appendicectomy, Both knees, Caesarean section, Gastric bypass, Tendonitis of left ankle, Tonsillectomy. Discharge Vitals Heart Rate (Peripheral) 61 Blood Pressure 111/67 Height 160 cm Height 63 in Weight 96 kg Weight 211.2 lb BMI 37.5 Medications What How Much When Instructions Unchanged acetaminophen-oxycodone (acetaminophen-oxycodone 325 mg-5 mg oral tablet) 1 Tablets By Mouth Every 6 hours as needed for as needed for pain Contact prescribing physician if questions or concerns Unchanged albuterol (albuterol HFA 90 mcg/ inh MDI) Respiratory (Inhalation), 0 Refill(s) Contact prescribing physician if questions or concerns Unchanged alendronate (alendronate 5 mg oral tablet) 1 By Mouth Every day osteoporosis Contact prescribing physician if questions or concerns Unchanged allopurinol By Mouth Every day Contact prescribing physician if questions or concerns Unchanged budesonide-formoterol (Symbicort 160/ 4.5 inhalation aerosol with adapter) 10 gm, 0 Refill(s), INHALE 2 PUFFS TWICE A DAY Contact prescribing physician if questions or concerns Unchanged budesonide-formoterol (Symbicort) 2 Puffs Inhalation 2 times a day Contact prescribing physician if questions or concerns Unchanged bumetanide (bumetanide 1 mg Tab) 180 EA, 0 Refill(s), TAKE ONE TABLET BY MOUTH TWICE A DAY Contact prescribing physician if questions or concerns Unchanged cholecalciferol (Vitamin D3) Oral Contact prescribing physician if questions or concerns Unchanged cholecalciferol (Vitamin D3) By Mouth 2 times a day Contact prescribing physician if questions or concerns Unchanged cyclobenzaprine 10 Unknown, Oral Contact prescribing physician if questions or concerns Unchanged duloxetine (duloxetine 30 mg oral delayed release capsule) 1 Unknown, 0 Refill(s) Contact prescribing physician if questions or concerns Unchanged ferrous sulfate 2,000 Milligram By Mouth 2 times a day Contact prescribing physician if questions or concerns Unchanged fluticasone nasal (fluticasone 0.05 mg/ inh Nasal [place]) 2 Sprays Nasal Inhalation Every day Contact prescribing physician if questions or concerns Unchanged gabapentin (gabapentin 300 mg Cap) Oral Contact prescribing physician if questions or concerns Unchanged hydrOXYzine 10 Milligram By Mouth 4 times a day as needed for as needed for anxiety Contact prescribing physician if questions or concerns Unchanged midodrine (midodrine 2.5 mg oral tablet) 2 times a day 2.5 Unknown, oral, 0 Refill(s), Take 1 tablet (2.5 mg total) by mouth 2 (two) times a day. Contact prescribing physician if questions or concerns Unchanged ondansetron (ondansetron 4 mg Tab) Oral Contact prescribing physician if questions or concerns Unchanged pantoprazole 40 Milligram By Mouth 2 times a day Contact prescribing physician if questions or concerns Unchanged phentermine (phentermine 37.5 mg Tab) Contact prescribing physician if questions or concerns Unchanged polycarbophil (Fiber Tabs) 1 tab By Mouth Every day Contact prescribing physician if questions or concerns Unchanged sucralfate (Carafate 1 gram Tab) 1 Tablets By Mouth 4 times a day Contact prescribing physician if questions or concerns Unchanged temazepam 30 Milligram By Mouth Once a day (at bedtime) Contact prescribing physician if questions or concerns Unchanged tizanidine 4 Milligram By Mouth 2 times a day as needed for Muscle pain Contact prescribing physician if questions or concerns Unchanged topiram (more content not included)... Normal [facility] Ambulatory Visit Summary RENUKA GRAHAM :1955 Visit Date:03/28/2024 Ambulatory Visit Instructions Your Diagnosis Diverticular disease Dysphagia History of gastric bypass Obesity CHF (congestive heart failure) COPD type B Colon polyps Your Care Team Attending Physician - Glen Bejarano MD Primary Care Physician - PETER SOSA DO Referring Physician - PETER SOSA DO This Is Your Medications List Contact prescribing physician if questions or concerns acetaminophen-oxycodone (acetaminophen-oxycodone 325 mg-5 mg oral tablet) albuterol (albuterol HFA 90 mcg/inh MDI) alendronate (alendronate 5 mg oral tablet) allopurinol budesonide-formoterol (Symbicort 160/4.5 inhalation aerosol with adapter) budesonide-formoterol (Symbicort) bumetanide (bumetanide 1 mg Tab) cholecalciferol (Vitamin D3) cholecalciferol (Vitamin D3) cyclobenzaprine duloxetine (duloxetine 30 mg oral delayed release capsule) ferrous sulfate fluticasone nasal (fluticasone 0.05 mg/inh Nasal [place]) gabapentin (gabapentin 300 mg Cap) hydrOXYzine midodrine (midodrine 2.5 mg oral tablet) ondansetron (ondansetron 4 mg Tab) pantoprazole phentermine (phentermine 37.5 mg Tab) polycarbophil (Fiber Tabs) sucralfate (Carafate 1 gram Tab) temazepam tizanidine topiramate (topiramate 25 mg Tab) Procedures Performed EGD (esophagogastroduodenosc opic) electrohydraulic lithotripsy of bezoar in stomach (06/15/2019), Colonoscopy (08/02/2018), Appendicectomy, Both knees, Caesarean section, Gastric bypass, Tendonitis of left ankle, Tonsillectomy. Discharge Vitals Heart Rate (Peripheral) 61 Blood Pressure 111/67 Height 160 cm Height 63 in Weight 96 kg Weight 211.2 lb BMI 37.5 Medications What How Much When Instructions Unchanged acetaminophen-oxycodone (acetaminophen-oxycodone 325 mg-5 mg oral tablet) 1 Tablets By Mouth Every 6 hours as needed for as needed for pain Contact prescribing physician if questions or concerns Unchanged albuterol (albuterol HFA 90 mcg/ inh MDI) Respiratory (Inhalation), 0 Refill(s) Contact prescribing physician if questions or concerns Unchanged alendronate (alendronate 5 mg oral tablet) 1 By Mouth Every day osteoporosis Contact prescribing physician if questions or concerns Unchanged allopurinol By Mouth Every day Contact prescribing physician if questions or concerns Unchanged budesonide-formoterol (Symbicort 160/ 4.5 inhalation aerosol with adapter) 10 gm, 0 Refill(s), INHALE 2 PUFFS TWICE A DAY Contact prescribing physician if questions or concerns Unchanged budesonide-formoterol (Symbicort) 2 Puffs Inhalation 2 times a day Contact prescribing physician if questions or concerns Unchanged bumetanide (bumetanide 1 mg Tab) 180 EA, 0 Refill(s), TAKE ONE TABLET BY MOUTH TWICE A DAY Contact prescribing physician if questions or concerns Unchanged cholecalciferol (Vitamin D3) Oral Contact prescribing physician if questions or concerns Unchanged cholecalciferol (Vitamin D3) By Mouth 2 times a day Contact prescribing physician if questions or concerns Unchanged cyclobenzaprine 10 Unknown, Oral Contact prescribing physician if questions or concerns Unchanged duloxetine (duloxetine 30 mg oral delayed release capsule) 1 Unknown, 0 Refill(s) Contact prescribing physician if questions or concerns Unchanged ferrous sulfate 2,000 Milligram By Mouth 2 times a day Contact prescribing physician if questions or concerns Unchanged fluticasone nasal (fluticasone 0.05 mg/ inh Nasal [place]) 2 Sprays Nasal Inhalation Every day Contact prescribing physician if questions or concerns Unchanged gabapentin (gabapentin 300 mg Cap) Oral Contact prescribing physician if questions or concerns Unchanged hydrOXYzine 10 Milligram By Mouth 4 times a day as needed for as needed for anxiety Contact prescribing physician if questions or concerns Unchanged midodrine (midodrine 2.5 mg oral tablet) 2 times a day 2.5 Unknown, oral, 0 Refill(s), Take 1 tablet (2.5 mg total) by mouth 2 (two) times a day. Contact prescribing physician if questions or concerns Unchanged ondansetron (ondansetron 4 mg Tab) Oral Contact prescribing physician if questions or concerns Unchanged pantoprazole 40 Milligram By Mouth 2 times a day Contact prescribing physician if questions or concerns Unchanged phentermine (phentermine 37.5 mg Tab) Contact prescribing physician if questions or concerns Unchanged polycarbophil (Fiber Tabs) 1 tab By Mouth Every day Contact prescribing physician if questions or concerns Unchanged sucralfate (Carafate 1 gram Tab) 1 Tablets By Mouth 4 times a day Contact prescribing physician if questions or concerns Unchanged temazepam 30 Milligram By Mouth Once a day (at bedtime) Contact prescribing physician if questions or concerns Unchanged tizanidine 4 Milligram By Mouth 2 times a day as needed for Muscle pain Contact prescribing physician if questions or concerns Unchanged topiram (more content not included)... Normal [facility] Consent for Procedure/Surger yon 03-28-2024 Consent for Procedure/Surgery [id number] Normal [facility] Gastroenterology Office/Clin ic Noteon 03-28-2024 Gastroenterology Office/Clinic Note Chief Complaint Dysphagia HPI Staff Patient is a 68 year old female who presents today to schedule a 5 year colonoscopy recheck. Patient referred by: Dr Sosa Last colonoscopy/ EGD: 08/02/2018 Colonoscopy: Mild diverticular disease in the sigmoid Small nonbleeding internal hemorrhoids, otherwise normal colonoscopy EGD: 1. Normal esophagus, Z line at 35 cm 2. Normal gastric pouch, 8 cm, normal anastomosis, normal jejunum EGD: 06/15/2019 1. Normal esophagus, Z line at 35 cm 2. Evidence of prior gastric bypass surgery, gastric pouch with moderate erythema, biopsied 3. Normal jejunal limb and normal anastomosis Pathology: STOMACH, BIOPSY: ? GASTRIC MUCOSA WITH MODERATE CHRONIC ACTIVE INFLAMMATION AND REGENERATIVE HYPERPLASIA. ? NO H. PYLORI MICROORGANISMS IDENTIFIED WITH IMMUNOSTAIN. Note: Multiple levels are microscopically examined. No intestinal metaplasia, granuloma or dysplasia is identified. Denies family history of colon cancer. Unknown- adopted Denies n/v/d/c, abdominal pain, or blood in stools. Trouble swallowing YES-blood thinner use. Eliquis Denies injectable diabetic/weight loss medication. Denies trouble with anesthesia in the past. History of Present Illness dysphagia Review of Systems PHQ Score Initial Depression Screen Score: 0 SCORE Physical Exam Vitals & Measurements HR: 61(Peripheral) BP: 111/67 HT: 63 in HT: 160 cm WT: 96 kg WT: 211.2 lb BMI: 37.5 Assessment/Plan 1. Diverticular disease (K57.90: Diverticulosis of intestine, part unspecified, without perforation or abscess without bleeding) Ordered: Colonoscopy (Hospital Procedure) Colonoscopy (Hospital Procedure) E&M of New Patient High 60-74 Min 42204 E&M of New Patient Moderate 45-59 Min 25151 EGD Endoscopy (Hospital Procedure) EGD Endoscopy (Hospital Procedure) 2. Dysphagia (R13.10: Dysphagia, unspecified) to solids, has to use water, occasionally (worst sandwich, meat..) no previous dilation EGD with dilation if fails--> manometry Ordered: Colonoscopy (Hospital Procedure) Colonoscopy (Hospital Procedure) E&M of New Patient High 60-74 Min 76253 E&M of New Patient Moderate 45-59 Min 00679 EGD Endoscopy (Hospital Procedure) EGD Endoscopy (Hospital Procedure) 3. History of gastric bypass (Z98.84: Bariatric surgery status) 1983 Ordered: Colonoscopy (Hospital Procedure) E&M of New Patient High 60-74 Min 49380 E&M of New Patient Moderate 45-59 Min 36073 EGD Endoscopy (Hospital Procedure) 4. Obesity (E66.9: Obesity, unspecified) Ordered: Colonoscopy (Hospital Procedure) E&M of New Patient High 60-74 Min 81965 E&M of New Patient Moderate 45-59 Min 56683 EGD Endoscopy (Hospital Procedure) 5. CHF (congestive heart failure) (I50.9: Heart failure, unspecified) Ordered: Colonoscopy (Hospital Procedure) E&M of New Patient High 60-74 Min 97701 E&M of New Patient Moderate 45-59 Min 13064 EGD Endoscopy (Hospital Procedure) 6. COPD type B (J44.89: Other specified chronic obstructive pulmonary disease) 7. Colon polyps (K63.5: Polyp of colon) reported by pt? last colonoscopy 2017 If negative, repeat colonoscopy in 10 years Follow-up No qualifying data available Problem List/Past Medical History Ongoing CHF (congestive heart failure) COPD (chronic obstructive pulmonary disease) Hypertension Kidney failure Historical No qualifying data Procedure/Surgical History EGD (esophagogastroduodenosc opic) electrohydraulic lithotripsy of bezoar in stomach (06/15/2019), Colonoscopy (08/02/2018), Appendicectomy, Both knees, Caesarean section, Gastric bypass, Tendonitis of left ankle, Tonsillectomy. Medications acetaminophen-oxycodone 325 mg-5 mg oral tablet, 1 tab(s), Oral, q6hr, PRN albuterol HFA 90 mcg/inh MDI alendronate 5 mg oral tablet, 1, Oral, Daily allopurinol, Oral, Daily bumetanide 1 mg Tab Carafate 1 gram Tab, 1 gm= 1 tab(s), Oral, QID cyclobenzaprine duloxetine 30 mg oral delayed release capsule ferrous sulfate, 2000 mg, Oral, BID Fiber Tabs, 1 tab, Oral, Daily fluticasone 0.05 mg/inh Nasal [place], 2 spray(s), Nasal, Daily gabapentin 300 mg Cap hydrOXYzine, 10 mg, Oral, QID, PRN midodrine 2.5 mg oral tablet, BID ondansetron 4 mg Tab pantoprazole, 40 mg, Oral, BID phentermine 37.5 mg Tab Symbicort, 2 puff(s), Inhalation, BID Symbicort 160/4.5 inhalation aerosol with adapter temazepam, 30 mg, Oral, Once a day (at bedtime) tizanidine, 4 mg, Oral, BID, PRN topiramate 25 mg Tab Vitamin D3 Vitamin D3, Oral, BID Allergies Latex (UNKNOWN) Tape (Itching) aspirin (Unknown) penicillins (UNKNOWN) sulfa drugs (UNKNOWN) Social History Alcohol - Low Risk, 06/07/2019 Substance Abuse - Denies Substance Abuse, 06/07/2019 Tobacco - Denies Tobacco Use, 06/07/2019 Former smoker, quit more than 30 days ago Tobacco Use:. Never Smokeless Tobacco Use:. Cigarettes, 03/28/2024 Family History Patient was adopted Fami (more content not included)... Normal [facility] Comment on above: Result Comment: Elec tronically Signed By: Darci BRYANT, Glen Ta\.juanita\Date and Time Signed: 03/28/24 10:48 EDT ECG 12 leadon 03-25-2023 P Wave [place] 46 degrees [facility] P-R Interval 168 ms [facility] th Pathologist interpretation (Bld) [Interp] Normal sinus rhythm Left bundle branch block Abnormal ECG Confirmed by Evelyn Jose MD ([id number]) on 03/25/2023 1:21:08 PM [facility] Q-T Interval 404 ms [facility] QRS Duration 128 ms [facility] QTc 448 ms [facility] R [place] -19 degrees [facility] Troponin T.cardiac [Mass/Vol] 83 ug/L degrees [facility] - Coagulationon 0 03-25-2023 ACT Coag (Bld) 74 s BPM [facility] SARS-CoV-2 (COVID-19) RNA NA A+probe Ql (Resp)on 03-25-2023 Interpretation and review of laboratory results Normal [facility] SARS-CoV-2 (COVID-19) RdRp gene TORRES+probe Ql (Resp) Not detected Not Detected [facility] Bacteria identified Anaer cx Nom (Unsp spec)Ordered By: Deep Sagastume on 03-23-2023 [facility] Bacteria identified Anaer cx Nom (Unsp spec)on 03-23-2023 [facility] Culture anaerobicOrdered By: Deep Sagastume on 03-23-2023 Bacteria identified Anaer cx Nom (Unsp spec) No anaerobes grown after 4 days. [facility] Laboratory - Microbiology an d Antimicrobial susceptibilityon 03-23-2023 Bacteria identified Anaer cx Nom (Unsp spec) No anaerobes grown after 4 days. [facility] Bacteria identified Cx Nom ( Tiss)on 03-22-2023 Microscopic observation Gram stain Nom (Unsp spec) No Polymorphonuclear leukocytes [facility] Comment on above: This is an appended report. These results have been appended to a previously preliminary verified report. Microscopic observation Gram stain Nom (Unsp spec) No Epithelial cells [facility] Comment on above: This is an appended [...] Nom (Unsp spec) No Epithelial cells [facility] Comment on above: This is an appended [...] Nom (Unsp spec) No Epithelial cells [facility] Comment on above: This is an appended [...] Nom (Body fld) Rare Pasteurella multocida Abnormal [facility] Comment on above: Appropriate antibiot ic [...] (Tiss) No growth at 3 days [facility] Bacteria identified Cx Nom (Tiss) No growth at 3 days [facility] Bacteria identified Cx Nom (Tiss) No growth at 3 days [facility] Bacteria identified Cx Nom (Tiss) Rare Pasteurella multocida Abnormal [facility] Comment on above: Appropriate antibiot ic [...] stain Nom (Unsp spec) No Epithelial cells [facility] Comment on above: This is an appended report. These results have been appended to a previously preliminary verified report. Microscopic observation Gram stain Nom (Unsp spec) No organisms seen [facility] Comment on above: This is an appended report. These results have been appended to a previously preliminary verified report. No Panel InformationOrdered By: Aggie Aiken on 03-22-2023 Interpretation and review of laboratory results Abnormal [facility] Basic metabolic 2000 panelon 03-21-2023 Anion gap [Moles/Vol] 8 mmol/L 6 - 18 Tri [facility] Calcium [Mass/Vol] 9.1 mg/dL 8.9 - 10. 3 mg/dL [facility] Chloride [Moles/Vol] 104 mmol/L 98 - 10 7 mmol/L [facility] CO2 [Moles/Vol] 25 mmol/L 22 - 32 mmol/L [facility] Creatinine [Mass/Vol] 0.92 mg/dL 0.60 - 1.30 mg/dL [facility] GFR/1.73 sq M.predicted among non-blacks MDRD (S/P/Bld) [Vol rate/Area] 68 mL/min/{1.73_m2} - PINF [facility] Comment on above: Effective July 27, 2022, calculation based on the Chronic Kidney Disease Epidemiology Collaboration (CKD-EPI) equation refit without adjustment for race. Glucose [Mass/Vol] 95 mg/dL 70 - 99 mg/dL [facility] [employer] Interpretation and review of laboratory results Abnormal [facility] [employer] Potassium [Moles/Vol] 4.6 mmol/L 3.6 - 5.1 mmol/L [facility] [employer] Sodium [Moles/Vol] 137 mmol/L 136 - 145 mmol/L [facility] [employer] Urea nitrogen [Mass/Vol] 22 mg/dL High 8 - 20 mg/dL [facility] [employer] Urea nitrogen/Creatinine [Mass ratio] 23.9 mg/mg High 12.0 - 20.0 [facility] [employer] Glucose Auto test strip (Bld ) [Mass/Vol]on 03-21-2023 Glucose [Mass/Vol] 112 mg/dL High 70 - 99 mg/dL [facility] [employer] Interpretation and review of laboratory results Abnormal [facility] Glucose [Mass/Vol] 124 mg/dL High 70 - 99 mg/dL [facility] [employer] Interpretation and review of laboratory results Abnormal [facility] [employer] Glucose [Mass/Vol] 85 mg/dL 70 - 99 mg/dL [facility] [employer] Interpretation and review of laboratory results Normal [facility] Hemogram and platelets WO di fferential panel (Bld)on 03-21-2023 Basophils (Bld) [#/Vol] 0.04 10*3/uL [facility] [employer] Basophils/100 WBC (Bld) 0.4 % 0.0 - 2.0 % [facility] [employer] Eosinophils (Bld) [#/Vol] 0.08 10*3/uL [facility] [employer] Eosinophils/100 WBC (Bld) 0.7 % 0.0 - 7.0 % [facility] [employer] Erythrocyte distribution width (RBC) [Ratio] 13.6 % 11.0 - 14.8 % [facility] [employer] Hematocrit (Bld) [Volume fraction] 36.0 % 34.3 - 47.9 % [facility] [employer] Hemoglobin (Bld) [Mass/Vol] 11.6 g/dL Low 12.0 - 16.0 g/dL [facility] [employer] Immature granulocytes (Bld) [#/Vol] 0.07 10*3/uL [facility] [employer] Immature granulocytes/100 WBC (Bld) 0.7 % 0.0 - 1.2 % [facility] [employer] Interpretation and review of laboratory results Abnormal [facility] [employer] Lymphocytes (Bld) [#/Vol] 1.70 10*3/uL [facility] Lymphocytes/100 WBC (Bld) 15.8 % Low 17.9 - 49.6 % [facility] MCH (RBC) [Entitic mass] 28.4 pg [facility] MCHC (RBC) [Mass/Vol] 32.2 g/dL 30.8 - 35.3 g/dL [facility] MCV (RBC) [Entitic vol] 88.0 fL [facility] Monocytes (Bld) [#/Vol] 1.02 10*3/uL High [facility] Monocytes/100 WBC (Bld) 9.5 % 0.0 - 12.0 % [facility] Neutrophils (Bld) [#/Vol] 7.84 10*3/uL High [facility] Neutrophils/100 WBC (Bld) 72.9 % 38.1 - 75.5 % [facility] Platelet mean volume (Bld) [Entitic vol] 10.4 fL [facility] Platelets (Bld) [#/Vol] 300 10*3/uL [facility] RBC (Bld) [#/Vol] 4.09 10*6/uL [facility] WBC (Bld) [#/Vol] 10.8 10*3/uL High [facility] Basic metabolic 2000 panelon 03-20-2023 Anion gap [Moles/Vol] 11 mmol/L 6 - 18 [facility] Calcium [Mass/Vol] 9.0 mg/dL 8.9 - 10. 3 mg/dL [facility] Chloride [Moles/Vol] 104 mmol/L 98 - 10 7 mmol/L [facility] CO2 [Moles/Vol] 23 mmol/L 22 - 32 mmol/L [facility] Creatinine [Mass/Vol] 1.03 mg/dL 0.60 - 1.30 mg/dL [facility] GFR/1.73 sq M.predicted among non-blacks MDRD (S/P/Bld) [Vol rate/Area] 60 mL/min/{1.73_m2} - [facility] Comment on above: Effective July 27, 2022, calculation based on the Chronic Kidney Disease Epidemiology Collaboration (CKD-EPI) equation refit without adjustment for race. Glucose [Mass/Vol] 106 mg/dL High 70 - 99 mg/dL [facility] Interpretation and review of laboratory results Abnormal [facility] Potassium [Moles/Vol] 4.9 mmol/L 3.6 - 5.1 mmol/L [facility] Sodium [Moles/Vol] 138 mmol/L 136 - 145 mmol/L [facility] Urea nitrogen [Mass/Vol] 31 mg/dL High 8 - 20 mg/dL [facility] Urea nitrogen/Creatinine [Mass ratio] 30.1 mg/mg High 12.0 - 20.0 [facility] Glucose Auto test strip (Bld ) [Mass/Vol]on 03-20-2023 Glucose [Mass/Vol] 109 mg/dL High 70 - 99 mg/dL [facility] Interpretation and review of laboratory results Abnormal [facility] Glucose [Mass/Vol] 89 mg/dL 70 - 99 mg/dL [facility] Interpretation and review of laboratory results Normal [facility] Glucose [Mass/Vol] 106 mg/dL High 70 - 99 mg/dL [facility] Interpretation and review of laboratory results Abnormal [facility] Glucose [Mass/Vol] 116 mg/dL High 70 - 99 mg/dL [facility] Interpretation and review of laboratory results Abnormal [facility] Hemogram and platelets WO di fferential panel (Bld)on 03-20-2023 Basophils (Bld) [#/Vol] 0.02 10*3/uL [facility] Basophils/100 WBC (Bld) 0.2 % 0.0 - 2.0 % [facility] Eosinophils (Bld) [#/Vol] 0.00 10*3/uL [facility] Eosinophils/100 WBC (Bld) 0.0 % 0.0 - 7.0 % [facility] Erythrocyte distribution width (RBC) [Ratio] 13.9 % 11.0 - 14.8 % [facility] Hematocrit (Bld) [Volume fraction] 38.9 % 34.3 - 47.9 % [facility] Hemoglobin (Bld) [Mass/Vol] 12.2 g/dL 12.0 - 16.0 g/dL [facility] Immature granulocytes (Bld) [#/Vol] 0.08 10*3/uL [facility] Immature granulocytes/100 WBC (Bld) 0.7 % 0.0 - 1.2 % [facility] Interpretation and review of laboratory results Abnormal [facility] Lymphocytes (Bld) [#/Vol] 1.07 10*3/uL [facility] Lymphocytes/100 WBC (Bld) 9.3 % Low 17.9 - 49.6 % [facility] MCH (RBC) [Entitic mass] 28.2 pg [facility] MCHC (RBC) [Mass/Vol] 31.4 g/dL 30.8 - 35.3 g/dL [facility] MCV (RBC) [Entitic vol] 89.8 fL [facility] Monocytes (Bld) [#/Vol] 0.61 10*3/uL [facility] Monocytes/100 WBC (Bld) 5.3 % 0.0 - 12.0 % [facility] Neutrophils (Bld) [#/Vol] 9.71 10*3/uL High [facility] Neutrophils/100 WBC (Bld) 84.5 % High 38.1 - 75.5 % [facility] Platelet mean volume (Bld) [Entitic vol] 11.2 fL [facility] Platelets (Bld) [#/Vol] 270 10*3/uL [facility] RBC (Bld) [#/Vol] 4.33 10*6/uL [facility] WBC (Bld) [#/Vol] 11.5 10*3/uL High [facility] Pathology studyOrdered By: Eli Dietrich on 03-20-2023 Citation Jeff (Reference lab test) n8dpsSEgRQXss0wvPEMcmLLo ZzEwMzNcZnRuYmpcdWMxIHtc ieZjNAlqb5QsK5LtOjVnRNob bnNpXGRlZmxhbmcxMDMzXGZ0 trPyLOFiIRnfIILlXSbaTx8f uCTngDjfNaUbDOBtq1acnvEW AVdqQUPFDOe5w8xsMOYcXuP7 yHMgSOwnQ1fdrbRyrPHlN0Rx s7EkCGu5fH70EBWwiO6ioYBp YUnvfiMwTlV4NNlaDVEaTxE4 SXZqxXWdMJKnP0hiMCYrWCrt egTbadZ7VFYoqAIiJCS2QBOu BPQtI9UnHR0zQIIcsOUoBAl7 x1kuyFtpDVYdHVI1m3qeUIci rjKeJB1upt1vcPe1b0uegiMi UKQqTSTmpDMIZGGhE9YbnNfv Wl5hsSn5zJlxYolaCYZ6Ddx2 ZK1pwe62crb1lShaIOIzzmcv SuA6AQuuSYKxfmpaKCs2JOyp OUAtyXN3PHBumVYaU0DgDBVp NZ3mboe6PAL5ZPsfADNiHmZ3 XDDdaAYoTUXzxStsHAiow104 VGL3BxSpMT3iK8Xzo1M2nI6m lKDsPYSunDGvJmRsFYJqrb2b kHWoDHiqd0RnWOO1swQ8lYFx sJBcSLQrUA13Fbnev9GwDaho REV3QUEtnkAld2Lkn5ilKyJi euLwT4fwU8MtUFHoXIMqYRNp GpFbyaKwb7Pnl3SjuHKubQa3 w1hpEPHuJAKkiWefx4vfXGC2 HAMoO9G8fHImq0rnSMqySWNj yBW9fcV3TBVhoLPgY6RpvI1r GNNhEK3fzet9v0wrJJE5YZjc IJNvMlI5uhR9ZNXhcPMmBIMn aZslBCwrq876JQU4MiSuRSVr o4SbW8GesBshQ85hfLjiF76p UMFvrHikuF8loYcjjP1zCpIf ZnMyNFxxbFxwbGFpblxmMVxm kzP7CVbizjttLUQvIItbW5kp KbOjRWAurOndOVikx8QjJERu RXXuGpzjmvT0WBfwRX50NUyg iCOyf0vct2RiD2knaRjacWT3 JX7tDIEzZXIwJShyt2ZtmT5o vIWuPYNdiaT1pOFksP16IYAv nrI3MDHjz92vu2HsxSlcufIy WTIzZUmsqjCkGFAtl7EqFOJx PPArCV18faKxZ0JryVFfRBPy dvQoDBlajO5ec3q7BJwoVs0s SIjng0NlxCTbaTNrtDU4HTMm b0DqXwSdpsYmwTWmwpBlLJ2a DFIhpMIkfyFmHMM8FGYqDNHC UsFpQYPnu8VdRC8eTXXmvKmy LVHmjC9yz5JvIBGhf52eISXo ZSBGREEgaGFzIGRldGVybWlu ZWQgdGhhdCBzdWNoIGNsZWFy AS7pUADaraYzwEQtg3LefUOh zrEha7RwydAfYYLrNJE9ByPL mNJbTFH0PHC1veLyjsVswYAs FQShk2WzU8sviczgAWunqZOb vH4gDRGpMB5wVWFfx4IcHBDw e2GiJgWcjdSgFTBaCUUpDDKt yR01ZND9lUoziHxlnqMdOS6b ZYGnxcJePFReOBOvaQ9iJFpp ugAgDFKhylJ3n4L5YTvqGSAp gqAcIgtwVTK3gnUhZNTxi5Ou FIknQ7ocP66ngWbanCh8zHM4 QPH3jS7jULQcRQIeRCInCTPE kYvqrNRbiFYEYLHnsyG8g6F0 PVlgsJXvlxIlBS33FOAkYT9h jCChsXYpz4VkNSa5XB2hWZbd VXSbinTme0ukUMRil2gaTBMo ra3hfswheGGufbYmL0Lcvyg2 iI9rpVMuSPGbgu80XZS5KcFu JF7mqDqxEDFvYR0uDKQwG2zy rE3bdvk8MsYby6lruFElMDXc yLNiEwZdUYOtMZAzo2uoFHQj bGFuZzEwMzNcZnRuYmpcdWMx GNCzCyFye4zkz801jXWpl0ck ZXEgLqV8zJIaOVXqB70lKGTA J473COAdGNvig3khe1BcGGXc pBCay4V2MTDGAXsbICIDHZw3 mRurX24uo7A6KtzjY1txLXJy SRUyT3McKH1yNQNvFsf7KRB7 TVW3AMRsXEK0TLelCIQiRJIi Lbf9XVR7WPuupyTmAOKsEGiu ZIKvUIFySHAecZBvZMEtC1wl ZWQwXGdyZWVuMFxibHVlMCA7 yFyvv9Y7eUWwnAUnjDgtVzLb AxZpEqOVw3ApUEn6gZppG8Lw WGIeMsO8aFKvZFBiXLarZXBx UVZfhjM9lD09YAusyyE1nOWj r4Wcq71jh429nH9xyVGnAGG1 ZLLnEOAnfFXmXACsHME5PCTu tCEpA0vvUOUcZU4qzwykDFdt SNurPKCwoIW7USKokUOwL8Od LQNzKPsgBOAmwds2CpWnPl5e uSDmrNzlRAshe5pfb5eidENq Dnk7MATfUsOiUbfhKRnxy8Bv h6ygMPNefc0mWEM8yDXgpAzt k2Z1uPVgMLTnqPAlsrXjFHFe LoS4LNerJB7pno52OXXkEQM2 mg2acFHegUvpdxCyfJKtAXrr F9MtTYOcb476MPBvH4HzWTGs t8W8biXeUkQiGSWqvKD3mfG2 UCAjZDu5iWXigcC2dyElxNVi Q7ctnY0lZQSmZX0pvgkvk6jm YLwnIJylZZRpeCA6diY3TVXw qBHgT3YkbS8fVVPaNVysJADa pfz4QoTgYz5sqBTsxMonDUqs YmtwYWdlXHBnbmNvbnRccGdu ZGVjXHBsYWluXHBsYWluXGYw MMVxEsCpiUxjmLvyrX4fVlEp AiUhLYcoCY0bZWSkG7tmrCNl TXUcZPIlE7cuOaWrqK7evLqg MVxjZjJcZnMxOFxpIFRoZSB0 KVAlymmzFFphA69ylT8fFS97 GNdhelJxCYBei1YbMGBrCVGq RRotPOOythZwBKxzcB7az1c9 BYypAm2hDTDwaznaIIK7WbQy AQ68TksbqXEfTVZLjzIcCXNh bHVtYnVzLCBPaGlvIDQzMjI5 IfVOuQCrt5Cyi6QzSoObpZUw yS7adYeimgT6WKHdrKIaWl8r bWVkLlxwbGFpblxmMVxmczE4 OQbynpsuRYOjQHgpZ8gvBlVw OPJjdQmiOXkfw4CvDTJzQDSi U0dfpbR8ERhniIWbKPQztw31 fQ== [facility] Work Phone: Microscopic description Jeff (Endomyocardium) g2vsoZPePJDzkORAIFChSSUa LX0erRsedDg1gIixJPCwdeQ3 gLZiBJkrn9hwVNC0m0biekXH NqorXSFyYJ6iZElsVPHeQT8v ZmUwXGRlZmYyXHBhcGVydzEy HkGnHSHdkQNppRT3DTFwAR4d wufqTFltWGclZSIsifN5SSTd oBAeU7XaVBGrYH3xcpeqNMO4 JEEPNftaMe0heBSexGEVEpug ZjFcZmNoYXJzZXQwXGZuaWwg RDLgZUm6iG6Py2dbNzyqF8xh iuAmuIRsXn2uuVHMFQloSLBX GNj5sY7WKNDnO8ZrAA4Qp0ly ZUMbsKKmZNB4RBpeh8dpFJgk OPD8DVJoKSUgIVXwAJ1YPbQu ORXlDXFeQZgdZlD5XSg9ELIF YDNaZVZ6QjMkBbS5ZDx1DRFv JT9fEIvjyPDeCUegYmjhCBlu N644QUlgLAOxV6SuO6CpKVbl ZyBcXGlkIDUxMDAyIFxcZGIg A2GKMOReJbGzAdV0DRMuIQw1 JKu0CO4LYeRhNCEgSwF8QlP2 GJQcOZb7KMcpJL8IQKRpLAE9 BxkmKYSzFZG3CJVnYAr1CWSg LNjmvzHsVGuySagjPQbfH45q cGFyZCANClxwbGFpblxmMVxm czIwIEEuIEtuZWUsIExlZnQs QHdwFLTwGXoaqNYdCT2KEOOx ymOcABcgvFffoP0cEoPpFvIz MFxwbGFpblxsdHJjaFxmczIy FEBobSEYITY0FP3cAUPSQkzw fUYvBLZvvOkaUDdpdD3fHAFl LdEyNLLvB9fcDQVfFC9XHEHj DUHmFtIfStKoDFj5FNYdlD1l Co7jkJWqsY1pxMZrHBmiPPN1 aLXuKSFjDJVoEKAeTP56X6Jr yiPkDQfgEH5dRNHwSKv4pA7s YWxseSBsYWJlbGVkICJsZWZ0 YMyiYROeGQnmBJPrhF4pnAtb piKkQiCmfnCcW5UdJHAjkUWt ISmnsQqhccJ0deL4ZU1sQ5Wz mGFecUNxf51kyLQzDA3dnGHu iFgxx0VlOTxryOvvlYYaVSXo aWduYXRlZCBvcmllbnRhdGlv biAyLjcgeCAxLjUgeCAwLjUg B96iUVMJOEC4eQ5guA3cDVGd zbTdhTVfBLZ0IG9lzMLmeC49 YQIrKAEzkp1ngkU4ZGIkyIQn t7LcZFB2kJWpoWToFMAnILsw xOsvim2gt2F8iL12lmDfvERy hWUpy4PdQEWsZNIlLBezFT03 aWZpZWQuICBSZXByZXNlbnRh nPb0EXMmLWW0tB8gvvNawzMv q9ZgjFp2xBTaHAaaKVZee6qr K5bsHFFnm6JieKZlMuXaOUkK UCkNClxlcGljTmVzdERvYzB7 KXKcgJSqBDI9FN2snXdlEOFw M8EdQ9YudqP9TLFpeaUDJiqy KABtSM1YHQWrGDRoUwCoIIi1 [facility] Work Phone: Pathology report final diagnosis Narrative z7hjiFFcGNBqnNRfUSUwJvve erCwHNIguIOeU2KanztmQQhy XA4nXE4wcTewaAKmrUQqOVFb FzPoe9vdt951wPIzn2jnUDKT isrufSz5uNzrV56mj1A9Jids Z8vlVEQhBWuoDQPhPVjroIHi VUh6QOEcuLTrluZfUhKpCMPp fMLssCO6HKMxEJ2nzuozJJjc YRtpVMAsanG8MIPhlCDbI8Wm ITSqYB3wwikqSTL1YJgcSGUh LRY7ZoTzBZHnf3Crxow2OqMj hYb6q6ihEUHeBGLfnDexb9uc JNS2EKTuhBRqA2locW2vQYJy JR8qkrcwz3eyLMxgHImxXDSb dOO9chY9TMWpnSBdM3MkzP7y CNOzRQQvnxMmoJdatP9lH9Kl KLZZEUI6WYfeGBHaECEub7Yj gBzzdDMyZSO9rr80lOOcADrg mJsjlJAcq4YjFMWyrHPzDCap ZednoC3nfIetwb8TAC9pFAjx YKU5SFLwuWdnzrT3CIEnymEa oHvvKYJmw6RwSGZuAPhrDyst IIEmOo6liBGmlALyu4Z9xTTj GOz8fGOoa3N1lDgvELjeExcp fY4veUkmaiWgddBfihWlOQ60 LlxwYXJ9 [employer] Phone: [employer] Phone: XR Knee 1-2 Views Lefton Status post left tot al knee arthroplasty. -------- FINAL REPORT -------- Dictated By: Ania Dumont Dictated Date: 03/20/2023 07:17 Assigned Physician: Ania Dumont Reviewed and Electronically Signed By: Ania Dumont Signed Date: 03/20/2023 07:18 Workstation ID: [id number] Transcribed By: Self Edit Transcribed Date: 03/20/2023 07:17 WesthouseCRIBE EXAM: XR KNEE 1-2 EWS LEFT HISTORY: postoperative care COMPARISON: 10/02/2022. TECHNIQUE: Frontal and lateral views of the left knee. FINDINGS: Status post left total knee arthroplasty. Hardware is intact. Alignment is within expected limits. Surgical drain and skin almita are noted. POWERSCRIBE Ania Dumont MD - 03/20/2023 EXAM: XR KNEE 1-2 [...] By: Self Edit Transcribed Date: 03/20/2023 07:17 [employer] XR Knee 1-2 Views LeftOrdere d By: Ania Dumont on 03-20-2023 [employer] Work Phone: Basic metabolic 2000 panelon 03-19-2023 Anion gap [Moles/Vol] 9 mmol/L 6 - 18 Tri [facility] [employer] Calcium [Mass/Vol] 10.2 mg/dL 8.9 - 10. 3 mg/dL [facility] [employer] Chloride [Moles/Vol] 104 mmol/L 98 - 10 7 mmol/L [facility] [employer] CO2 [Moles/Vol] 27 mmol/L 22 - 32 mmol/L [facility] [employer] Creatinine [Mass/Vol] 1.10 mg/dL 0.60 - 1.30 mg/dL [employer] GFR/1.73 sq M.predicted among non-blacks MDRD (S/P/Bld) [Vol rate/Area] 55 mL/min/{1.73_m2} Low - PINF [facility] Comment on above: Effective July 27, 2022, calculation based on the Chronic Kidney Disease Epidemiology Collaboration (CKD-EPI) equation refit without adjustment for race. Glucose [Mass/Vol] 97 mg/dL 70 - 99 mg/dL [employer] Interpretation and review of laboratory results Abnormal [employer] Potassium [Moles/Vol] 4.4 mmol/L 3.6 - 5.1 mmol/L [facility] [employer] Sodium [Moles/Vol] 140 mmol/L 136 - 145 mmol/L [facility] [employer] Urea nitrogen [Mass/Vol] 36 mg/dL High 8 - 20 mg/dL [facility] [employer] Urea nitrogen/Creatinine [Mass ratio] 32.7 mg/mg High 12.0 - 20.0 [facility] [employer] Cell count panel (Body fld)O rdered By: Deidra Stallings on 03-19-2023 Clarity (Body fld) [facility] Color (Body fld) [place] [employer] RBC Auto (Body fld) [#/Vol] 45797 /mm3 [facility] [employer] Comment on above: The reference range and other method performance specifications have not been established for this fluid specimen. The test result should be integrated into the clinical context for interpretation. Specimen source Nom (Body fld) Knee [employer] WBC (Body fld) [#/Vol] [id number] /mm3 [facility] [employer] Comment on above: The reference range and other method performance specifications have not been established for this fluid specimen. The test result should be integrated into the clinical context for interpretation. Called to [facility] 1422 03/19/23 [facility] [employer] Differential panel (Body fld )on 03-19-2023 Lymphocytes/100 WBC Manual cnt (Body fld) [employer] [facility] Monocytes+Macrophages/ 100 WBC (Body fld) 4.0 % [employer] [facility] h Neutrophils/100 WBC (Body fld) 96.0 % [employer] Glucose Auto test strip (Bld ) [Mass/Vol]on 03-19-2023 Glucose [Mass/Vol] 131 mg/dL High 70 - 99 mg/dL [employer] Interpretation and review of laboratory results Abnormal [employer] Glucose [Mass/Vol] 124 mg/dL High 70 - 99 mg/dL [employer] Interpretation and review of laboratory results Abnormal [employer] HbA1c HPLC (Bld) [Mass fract ion]on 03-19-2023 Glucose [Mass/Vol] 117 mg/dL [facility] HbA1c (Bld) [Mass fraction] 5.7 % High NINF - 5.6 % [employer] Interpretation and review of laboratory results Abnormal [employer] HbA1c values of 5.7- 6.4 percent indicate an increased risk for developing diabetes mellitus. HbA1c values greater than or equal to 6.5 percent are diagnostic of diabetes mellitus. For diagnosis of diabetes in individuals without unequivocal hyperglycemia, results should be confirmed by repeat testing. [employer] Hemogram and platelets WO di fferential panel (Bld)on 03-19-2023 Basophils (Bld) [#/Vol] 0.05 10*3/uL [employer] Basophils/100 WBC (Bld) 0.4 % 0.0 - 2.0 % [employer] Eosinophils (Bld) [#/Vol] 0.07 10*3/uL [facility] Eosinophils/100 WBC (Bld) 0.6 % 0.0 - [...] Health MCV (RBC) [Entitic vol] 87.7 fL [facility] Monocytes (Bld) [#/Vol] 1.01 10*3/uL High [facility] Monocytes/100 WBC (Bld) 8.1 % 0.0 - 12.0 % [facility] Neutrophils (Bld) [#/Vol] 9.93 10*3/uL High [facility] Neutrophils/100 WBC (Bld) 80.0 % High 38.1 - 75.5 % [facility] Platelet mean volume (Bld) [Entitic vol] 9.6 fL [facility] Platelets (Bld) [#/Vol] 268 10*3/uL [facility] RBC (Bld) [#/Vol] 4.63 10*6/uL [facility] WBC (Bld) [#/Vol] 12.4 10*3/uL [facility] XR Knee 1-2 Views [facility] Study observation (narrative) [facility] CBC AUTO DIFFon 03-15-2023 BASO # 0.0 103/ul Normal 0.0-0.1 [facility] Comment on above: Performed By: #### C BC #### [facility] [address] [place] [address] Dr. Kyree Neal Basophils/100 WBC (Bld) 0.3 % Normal 0.2-2.0 Comment on above: Performed By: #### C BC #### [facility] [address] [place] [address] Dr. Kyree Neal EO # 0.0 103/ul Normal 0.0-0.7 [facility] Comment on above: Performed By: #### C BC #### [facility] [address] [place] [address] Dr. Kyree Neal Eosinophils/100 WBC (Bld) 0.1 % Critically low 0.9-7.0 Comment on above: Performed By: #### C BC #### [facility] [address] [place] [address] Dr. Kyree Neal Erythrocyte distribution width (RBC) [Ratio] 14.0 % Normal 11.0-15.0 Comment on above: Performed By: #### C BC #### [facility] [address] [place] [address] Dr. Kyree Neal Hematocrit (Bld) [Volume fraction] 38.5 % Normal 36.0-48.0 Comment on above: Performed By: #### C BC #### [facility] [address] [place] [address] Dr. Kyree Neal Hemoglobin (Bld) [Mass/Vol] 12.4 g/dL Normal 12.0-16.0 Comment on above: Performed By: #### C BC #### [facility] [address] [place] [address] Dr. Kyree Neal IG # 0.06 10e3/ul Critically high 0.00-0.03 [facility] Comment on above: Performed By: #### C BC #### [facility] [address] [place] [address] Dr. Kyree Neal IG % 0.4 % Normal 0.0-0.5 Comment on above: Performed By: #### C BC #### [facility] [address] [address] [address] Kyree Neal LYMPH # 0.9 103/ul Critically low 1.2-3.8 [facility] Comment on above: Performed By: #### C BC #### [facility] [address] [place] [address] Dr. Kyree Neal Lymphocytes/100 WBC (Bld) 6.6 % Critically low 20.5-60.0 [facility] Comment on above: Performed By: #### C BC #### [facility] [address] [place] [address] Dr. Kyree Neal MANUAL DIFF REQ NO Normal [facility] Comment on above: Performed By: #### C BC #### [facility] [address] [place] [address] Dr. Kyree Neal MCH (RBC) [Entitic mass] 28.1 pg Normal 26.7-34.0 [facility] Comment on above: Performed By: #### C BC #### [facility] [address] [place] [address] Dr. Kyree Neal MCHC (RBC) [Mass/Vol] 32.2 g/dL Normal 29.9-35.2 [facility] Comment on above: Performed By: #### C BC #### [facility] [address] [place] [address] Dr. Kyree Neal MCV (RBC) [Entitic vol] 87.1 fL Normal 81.0-99.0 [facility] Comment on above: Performed By: #### C BC #### [facility] [address] [place] [address] Dr. Kyree Neal MONO # 1.2 103/ul Critically high 0.3-0.8 [facility] Comment on above: Performed By: #### C BC #### [facility] [address] [place] [address] Dr. Kyree Neal Monocytes/100 WBC (Bld) 8.6 % Normal 1.7-12.0 [facility] Comment on above: Performed By: #### C BC #### [facility] [address] [place] [address] Dr. Kyree Neal NEUT # 11.5 103/ul Critically high 1.4-6.5 [facility] Comment on above: Performed By: #### C BC #### [facility] [address] [address] [address] Kyree Neal Neutrophils/100 WBC (Bld) 84.0 % Critically high 43.0-75.0 Comment on above: Performed By: #### C BC #### [facility] [address] [place] [address] Dr. Kyree Neal Platelet mean volume (Bld) [Entitic vol] 10.0 fL Normal 9.5-13.5 [facility] Comment on above: Performed By: #### C BC #### [facility] [address] [place] [address] Dr. Kyree Neal PLT 250 103/ul Normal 150-450 [facility] Comment on above: Performed By: #### C BC #### [facility] [address] [place] [address] Dr. Kyree Neal RBC 4.42 106/ul Normal 4.20-5.40 [facility] Comment on above: Performed By: #### C BC #### [facility] [address] [place] [address] Dr. Kyree Neal WBC 13.7 103/ul Critically high 4.0-11.0 [facility] Comment on above: Performed By: #### C BC #### [facility] [address] [place] [address] Dr. Kyree Neal CRPon 03-15-2023 CRP 13.8 mg/dL Critically high <=1.0 [facility] Comment on above: Performed By: #### H H #### [facility] [address] [place] [address] Dr. Kyree Neal CULTURE BLOODon 03-15-2023 Microscopic examination of blood, culture Culture Observations: NO GROWTH AT 36-48 HOURS. FINAL TO FOLLOW. Normal [facility] Comment on above: Performed By: #### B LDCX2 ####[facility] [address] [place], [place] [address]SrDr. Kyree Neal Microscopic examination of blood, culture Culture Observations: NO GROWTH AT 36-48 HOURS. FINAL TO FOLLOW. Normal Comment on above: Performed By: #### B LDCX1 ####[facility] [address] [place], [place] [address]XhDr. Kyree Neal LACTATE/LACTIC ACIDon 2022 Lactate [Moles/Vol] 1.2 mmol/L Normal 0.4-2.0 [facility] Comment on above: Performed By: #### H H #### [facility] [address] [address] [address] Kyree Neal PROF CHEM 8 (BAS METB)on Anion gap [Moles/Vol] 11.6 mmol/L Normal [facility] Comment on above: Performed By: #### H H #### [facility] [address] [address] [address] Kyree Neal Calcium [Mass/Vol] 9.0 mg/dL Normal 8.5-10.1 [facility] Comment on above: Performed By: #### H H #### [facility] [address] [address] [address] Kyree Neal Chloride [Moles/Vol] 102 mmol/L Normal 98-107 Comment on above: Performed By: #### H H #### [facility] [address] [address] [address] Kyree Neal CO2 [Moles/Vol] 28.0 mmol/L Normal 21.0-32.0 [facility] Comment on above: Performed By: #### H H #### [facility] [address] [address] [address] Kyree Neal Creatinine [Mass/Vol] 1.34 mg/dL Critically high 0.55-1.02 Comment on above: Performed By: #### H H #### [facility] [address] [address] [address] Kyree Neal EGFR-AF [facility] 48 mL/min/1.73m2 Critically low >=60 Comment on above: Performed By: #### H H #### [facility] [address] [address] [address] Kyree Neal EGFR-NON AF [facility] 39 mL/min/1.73m2 Critically low >=60 Comment on above: Performed By: #### H H #### [facility] [address] [address] [address] Kyree Neal Glucose [Mass/Vol] 120 mg/dL Critically high 74-106 T [facility] Comment on above: Performed By: #### H H #### [facility] [address] [address] [address] Kyree Neal Potassium [Moles/Vol] 3.6 mmol/L Normal 3.5-5.1 Comment on above: Performed By: #### H H #### [facility] [address] [address] [address] Kyree Neal Sodium [Moles/Vol] 138 mmol/L Normal 136-145 [facility] Comment on above: Performed By: #### H H #### [facility] [address] [address] [address] Kyree Neal Urea nitrogen [Mass/Vol] 36.0 mg/dL Critically high 7.0-18.0 Comment on above: Performed By: #### H H #### [facility] [address] [address] [address] Kyree Neal Urea nitrogen/Creatinine [Mass ratio] 26.9 mg/mg Normal Comment on above: Performed By: #### H H #### [facility] [address] [address] [address] Kyree [facility] SED RATE 80 mm/hr Critically high <=30 [facility] Comment on above: Performed By: #### H H #### [facility] [address] [address] [address] Kyree Neal US NGUYỄN DOP LEG LTon 03-15-20 US NGUYỄN DOP LEG LT EXAM: US [...] LUCILA PRABHAKAR Date: 2023-03-15 18:55 Normal [facility] XR KNEE LT 4V or >on 023 [...] NAVEEN AZAR Date: 2023-03-15 19:13 Normal [facility] US THYROIDon 01-07-2023 US THYROID EXAMINATION: US [...] NELIA TIJERINA Date: 2023-01-07 13:45 Normal [facility] C3 and C4 COMPLEMENTon 11-05 Complement C3, Serum 95 mg/dL Normal 82-167 [facility] Comment on above: Performed By: #### H H #### [facility] [address] [address] [address] Kyree Neal Complement C4, Serum 25 mg/dL Normal 12-38 Comment on above: Performed By: #### H H #### [facility] [address] [address] [address] Kyree Neal COMPLEMENT TOTAL (CH50)on Complement, Total (CH50) >60 Normal >41 [facility] Comment on above: Result Comment: [...] values. Performed By: #### C H50T #### [facility] [address] [address] [address] Kyree Neal NET DEVELOPMENT MANAGER ANTIBODIESon 11-05-2022 NET DEVELOPMENT MANAGER Antibodies <0.2 Normal 0.0-0.9 [place] Comment on above: Performed By: #### R NPAB ####[facility] [address] [address]Dr. Kyree Neal CBC AUTO DIFFon 11-04-2022 BASO # 0.1 103/ul Normal 0.0-0.1 Comment on above: Performed By: #### S EDR #### [facility] [address] [address] [address] Kyree Neal Basophils/100 WBC (Bld) 1.2 % Normal 0.2-2.0 Comment on above: Performed By: #### S EDR #### [facility] [address] [address] [address] Kyree Neal EO # 0.6 103/ul Normal 0.0-0.7 [facility] Comment on above: Performed By: #### S EDR #### [facility] [address] [place] [address] Dr. Kyree Neal Eosinophils/100 WBC (Bld) 6.3 % Normal 0.9-7.0 Comment on above: Performed By: #### S EDR #### [facility] [address] [place] [address] Dr. Kyree Nela Erythrocyte distribution width (RBC) [Ratio] 13.5 % Normal 11.0-15.0 Comment on above: Performed By: #### S EDR #### [facility] [address] [place] [address] Dr. Kyree Neal Hematocrit (Bld) [Volume fraction] 39.0 % Normal 36.0-48.0 Comment on above: Performed By: #### S EDR #### [facility] [address] [place] [address] Dr. Kyree Neal Hemoglobin (Bld) [Mass/Vol] 12.6 g/dL Normal 12.0-16.0 [facility] Comment on above: Performed By: #### S EDR #### [facility] [address] [place] [address] Dr. Kyree Neal IG # 0.02 10e3/ul Normal 0.00-0.03 [facility] Comment on above: Performed By: #### S EDR #### [facility] [address] [place] [address] Dr. Kyree Neal IG % 0.2 % Normal 0.0-0.5 [facility] Comment on above: Performed By: #### S EDR #### [facility] [address] [address] [address] Kyree Neal LYMPH # 1.9 103/ul Normal 1.2-3.8 [facility] Comment on above: Performed By: #### S EDR #### [facility] [address] [address] [address] Kyree Neal Lymphocytes/100 WBC (Bld) 22.4 % Normal 20.5-60.0 [facility] Comment on above: Performed By: #### S EDR #### [facility] [address] [address] [address] Kyree Neal MANUAL DIFF REQ NO Normal [facility] Comment on above: Performed By: #### S EDR #### [facility] [address] [place] [address] Dr. Kyree Neal MCH (RBC) [Entitic mass] 28.1 pg Normal 26.7-34.0 Comment on above: Performed By: #### S EDR #### [facility] [address] [address] [address] Kyree Neal MCHC (RBC) [Mass/Vol] 32.3 g/dL Normal 29.9-35.2 [facility] Comment on above: Performed By: #### S EDR #### [facility] [address] [address] [address] Kyree Neal MCV (RBC) [Entitic vol] 87.1 fL Normal 81.0-99.0 [facility] Comment on above: Performed By: #### S EDR #### [facility] [address] [address] [address] Kyree Neal MONO # 0.8 103/ul Normal 0.3-0.8 [facility] Comment on above: Performed By: #### S EDR #### [facility] [address] [address] [address] Kyree Neal Monocytes/100 WBC (Bld) 9.0 % Normal 1.7-12.0 [facility] Comment on above: Performed By: #### S EDR #### [facility] [address] [address] [address] Kyree Neal NEUT # 5.3 103/ul Normal 1.4-6.5 [facility] Comment on above: Performed By: #### S EDR #### [facility] [address] [id number] Kyree Neal Neutrophils/100 WBC (Bld) 60.9 % Normal 43.0-75.0 Comment on above: Performed By: #### S EDR #### [facility] [address] [address] [address] Kyree Neal Platelet mean volume (Bld) [Entitic vol] 9.7 fL Normal 9.5-13.5 [facility] Comment on above: Performed By: #### S EDR #### [facility] [address] [address] [address] Kyree Neal PLT 232 103/ul Normal 150-450 [facility] Comment on above: Performed By: #### S EDR #### [facility] [address] [address] [address] Kyree Neal RBC 4.48 106/ul Normal 4.20-5.40 Comment on above: Performed By: #### S EDR #### [facility] [address] [address] [address] Kyree Neal WBC 8.7 103/ul Normal 4.0-11.0 Comment on above: Performed By: #### S EDR #### [facility] [address] [address] [address] Kyree Neal CRPon 11-04-2022 CRP 1.8 mg/dL Critically high <=1.0 [facility] Comment on above: Performed By: #### C RP, CMP ####[facility] [address] [address]Dr. Kyree Neal PROF 14(COMP METB)on 023 Albumin [Mass/Vol] 3.6 g/dL Normal 3.4-5.0 [facility] Comment on above: Performed By: #### C RP, CMP ####[facility] [address] [id number]. Kyree Neal Albumin/Globulin [Mass ratio] 1.0 {ratio} Normal Comment on above: Performed By: #### C RP, CMP ####[facility] [address] [id number]. Kyree Neal ALP [Catalytic activity/Vol] 75 U/L Normal 46-116 Comment on above: Performed By: #### C RP, CMP ####[facility] [address] [id number]. Aaliyahjeff Ángel ALT [Catalytic activity/Vol] 17 U/L Normal 14-59 Comment on above: Performed By: #### C RP, CMP ####[facility] [address] [id number]. Kyree Neal Anion gap [Moles/Vol] 11.8 mmol/L Normal [facility] Comment on above: Performed By: #### C RP, CMP ####[facility] [address] [address]Dr. Kyree Neal AST [Catalytic activity/Vol] 19 U/L Normal 15-37 Comment on above: Performed By: #### C RP, CMP ####[facility] [address] [id number]. Kyree Neal Bilirubin [Mass/Vol] 0.6 mg/dL Normal 0.2-1.0 Comment on above: Performed By: #### C RP, CMP ####[facility] [address] [id number]. Kyree Neal Calcium [Mass/Vol] 9.2 mg/dL Normal 8.5-10.1 [facility] Comment on above: Performed By: #### C RP, CMP ####[facility] [address] [id number]. Kyree Neal Chloride [Moles/Vol] 99 mmol/L Normal 98-107 Comment on above: Performed By: #### C RP, CMP ####[facility] [address] [id number]. Kyree Neal CO2 [Moles/Vol] 30.5 mmol/L Normal 21.0-32.0 [facility] Comment on above: Performed By: #### C RP, CMP ####[facility] [address] [id number]. Kyree Neal Creatinine [Mass/Vol] 1.03 mg/dL Critically high 0.55-1.02 [facility] Comment on above: Performed By: #### C RP, CMP ####[facility] [address] [id number]. Kyree Neal EGFR-AF [facility] >60 Normal >=60 [facility] Comment on above: Performed By: #### C RP, CMP ####[facility] [address] [address]Dr. Kyree Ángel EGFR-NON AF [facility] 53 mL/min/1.73m2 Critically low >=60 [facility] Comment on above: Performed By: #### C RP, CMP ####[facility] [address] [address]Dr. Kyree Neal Globulin (S) [Mass/Vol] 3.6 g/dL Normal Comment on above: Performed By: #### C RP, CMP ####[facility] [address] [address]Dr. Kyree Neal Glucose [Mass/Vol] 97 mg/dL Normal 74-106 [facility] Comment on above: Performed By: #### C RP, CMP ####[facility] [address] [address]Dr. Kyree Neal Potassium [Moles/Vol] 3.3 mmol/L Critically low 3.5-5.1 [facility] Comment on above: Performed By: #### C RP, CMP ####[facility] [address] [address]Dr. Kyree Neal Protein [Mass/Vol] 7.2 g/dL Normal 6.4-8.2 [facility] Comment on above: Performed By: #### C RP, CMP ####[facility] [address] [id number] Neal Sodium [Moles/Vol] 138 mmol/L Normal 136-145 [facility] Comment on above: Performed By: #### C RP, CMP ####[facility] [address] [address]Dr. Kyree Neal Urea nitrogen [Mass/Vol] 28.0 mg/dL Critically high 7.0-18.0 Comment on above: Performed By: #### C RP, CMP ####[facility] [address] [address]Dr. Kyree Neal Urea nitrogen/Creatinine [Mass ratio] 27.2 mg/mg Normal Comment on above: Performed By: #### C RP, CMP ####[facility] [address] [place] [address]DrDulce Neal [facility] SED RATE 92 mm/hr Critically high <=30 [facility] Comment on above: Performed By: #### S EDR #### [facility] [address] [place] [address] Dr. Kyree Neal UA RANDOM W/MICROSCOPICon BACTERIA NONE SEEN Normal NONE SEEN Comment on above: Performed By: #### H H #### [facility] [address] [address] [address] Kyree Neal Bilirubin Ql (U) Negative Normal NEGATIVE [facility] Comment on above: Performed By: #### H H #### [facility] [address] [address] [address] Kyree Neal CAST NONE SEEN Normal NONE SEEN Comment on above: Performed By: #### H H #### [facility] [address] [address] [address] Kyree Neal Clarity (U) CLEAR Normal CLEAR [facility] Comment on above: Performed By: #### H H #### [facility] [address] [place] [address] Dr. Kyree Neal Color (U) YELLOW Normal YELLOW [facility] Comment on above: Performed By: #### H H #### [facility] [address] [place] [address] Dr. Kyree Neal Crystals LM Nom (Urine sed) NONE SEEN Normal NONE SEEN Comment on above: Performed By: #### H H #### [facility] [address] [place] [address] Dr. Kyree Neal Epithelial cells LM Ql (Urine sed) RARE Normal NONE SEEN /RARE Comment on above: Performed By: #### H H #### [facility] [address] [place] [address] Dr. Kyree Neal Glucose Ql (U) Negative Normal NEGATIVE [facility] Comment on above: Performed By: #### H H #### [facility] [address] [place] [address] Dr. Kyree Neal Hemoglobin Ql (U) Negative Normal NEGATIVE [facility] Comment on above: Performed By: #### H H #### [facility] [address] [place] [address] Dr. Kyree Neal Ketones Ql (U) Negative Normal NEGATIVE [facility] Comment on above: Performed By: #### H H #### [facility] [address] [place] [address] Dr. Kyree Neal LEUKOCYTES Negative Normal NEGATIVE Comment on above: Performed By: #### H H #### [facility] [address] [place] [address] Dr. Kyree Neal MUCOUS NONE SEEN Normal NONE SEEN Comment on above: Performed By: #### H H #### [facility] [address] [place] [address] Dr. Kyree Neal Nitrite Ql (U) Negative Normal NEGATIVE [facility] Comment on above: Performed By: #### H H #### [facility] [address] [place] [address] Dr. Kyree Neal pH (U) 7.0 [pH] Normal 5-9 [facility] Comment on above: Performed By: #### H H #### [facility] [address] [address] [address] Kyree Neal RBC 0-2 Normal 0-2 Comment on above: Performed By: #### H H #### [facility] [address] [address] [address] Kyree Neal SPEC GRAVITY 1.010 Normal 1.005-<=1. 025 Comment on above: Performed By: #### H H #### [facility] [address] [address] [address] Kyree Neal UA PROTEIN Negative Normal NEGATIVE/ TRACE [facility] Comment on above: Performed By: #### H H #### [facility] [address] [address] [address] Kyree Neal Urobilinogen Qn (U) 1.0 {Herrera'U}/dL Normal 0.2 - 1. 0 Comment on above: Performed By: #### H H #### [facility] [address] [address] [address] Kyree Neal WBC NONE SEEN Normal NONE SEEN [facility] Comment on above: Performed By: #### H H #### [facility] [address] [address] [address] Kyree Neal Bacteria identified Anaer cx Nom (Unsp spec)on 10-06-2022 [facility] Glucose Auto test strip (Bld ) [Mass/Vol]on 10-06-2022 Glucose [Mass/Vol] 93 mg/dL 70 - 99 mg/dL [facility] Interpretation and review of laboratory results Normal [facility] Glucose [Mass/Vol] 101 mg/dL High 70 - 99 mg/dL [facility] Interpretation and review of laboratory results Abnormal [facility] - Microbiology an d Antimicrobial susceptibilityon 10-06-2022 Bacteria identified Anaer cx Nom (Unsp spec) No anaerobes grown after 4 days. [facility] Bacteria identified Sterile body fluid culture Nom (Unsp spec)on 10-05-2022 Bacteria identified Cx Nom (Body fld) No growth at 3 days [facility] Glucose Auto test strip (Bld ) [Mass/Vol]on 10-05-2022 Glucose [Mass/Vol] 133 mg/dL High 70 - 99 mg/dL [facility] Interpretation and review of laboratory results Abnormal [facility] Glucose [Mass/Vol] 141 mg/dL High 70 - 99 mg/dL [facility] Interpretation and review of laboratory results Abnormal [facility] - Microbiology an d Antimicrobial susceptibilityon 10-05-2022 Bacteria identified Cx Nom (Tiss) No growth at 3 days [facility] Microscopic observation Gram stain Nom (Unsp spec) No Polymorphonuclear leukocytes [facility] Comment on above: This is an appended report. These results have been appended to a previously preliminary verified report. Microscopic observation Gram stain Nom (Unsp spec) No Epithelial cells [facility] Comment on above: This is an appended report. These results have been appended to a previously preliminary verified report. Microscopic observation Gram stain Nom (Unsp spec) No organisms seen [facility] Comment on above: This is an appended report. These results have been appended to a previously preliminary verified report. No Panel Informationon 10-05 [facility] Basic metabolic 2000 panelon 10-04-2022 Anion gap [Moles/Vol] 8 mmol/L 6 - 18 Tri [facility] Calcium [Mass/Vol] 9.3 mg/dL 8.9 - 10. 3 mg/dL [facility] Chloride [Moles/Vol] 107 mmol/L 98 - 10 7 mmol/L [facility] CO2 [Moles/Vol] 26 mmol/L 22 - 32 mmol/L [facility] Creatinine [Mass/Vol] 0.89 mg/dL 0.60 - 1.30 mg/dL [facility] GFR/1.73 sq M.predicted among non-blacks MDRD (S/P/Bld) [Vol rate/Area] 71 mL/min/{1.73_m2} - PINF [facility] Comment on above: Effective July 27, 2022, calculation based on the Chronic Kidney Disease Epidemiology Collaboration (CKD-EPI) equation refit without adjustment for race. Glucose [Mass/Vol] 94 mg/dL 70 - 99 mg/dL [facility] Interpretation and review of laboratory results Normal [facility] Potassium [Moles/Vol] 4.0 mmol/L 3.6 - 5.1 mmol/L [facility] Sodium [Moles/Vol] 141 mmol/L 136 - 145 mmol/L [facility] Urea nitrogen [Mass/Vol] 14 mg/dL 8 - 20 mg/dL [facility] Urea nitrogen/Creatinine [Mass ratio] 15.7 mg/mg 12.0 - 20.0 [facility] Glucose Auto test strip (Bld ) [Mass/Vol]on 10-04-2022 Glucose [Mass/Vol] 125 mg/dL High 70 - 99 mg/dL [facility] Interpretation and review of laboratory results Abnormal [facility] Glucose [Mass/Vol] 94 mg/dL 70 - 99 mg/dL [facility] Interpretation and review of laboratory results Normal [facility] Glucose [Mass/Vol] 93 mg/dL 70 - 99 mg/dL [facility] Interpretation and review of laboratory results Normal [facility] Glucose [Mass/Vol] 87 mg/dL 70 - 99 mg/dL [facility] Interpretation and review of laboratory results Normal [facility] Hemogram and platelets WO di fferential panel (Bld)on 10-04-2022 Erythrocyte distribution width (RBC) [Ratio] 13.9 % 11.0 - 14.8 % [facility] Hematocrit (Bld) [Volume fraction] 39.6 % 34.3 - 47.9 % [facility] Hemoglobin (Bld) [Mass/Vol] 12.2 g/dL 12.0 - 16.0 g/dL [facility] Interpretation and review of laboratory results Normal [facility] MCH (RBC) [Entitic mass] 27.7 pg [facility] MCHC (RBC) [Mass/Vol] 30.8 g/dL 30.8 - 35.3 g/dL [facility] MCV (RBC) [Entitic vol] 90.0 fL [facility] Platelet mean volume (Bld) [Entitic vol] 10.3 fL [facility] th Platelets (Bld) [#/Vol] 194 10*3/uL [facility] RBC (Bld) [#/Vol] 4.40 10*6/uL [facility] WBC (Bld) [#/Vol] 9.2 10*3/uL [facility] Basic metabolic 2000 panelon 10-03-2022 Anion gap [Moles/Vol] 9 mmol/L 6 - 18 Tri [facility] Calcium [Mass/Vol] 9.0 mg/dL 8.9 - 10. 3 mg/dL [facility] [employer] Chloride [Moles/Vol] 105 mmol/L 98 - 10 7 mmol/L [facility] [employer] CO2 [Moles/Vol] 25 mmol/L 22 - 32 mmol/L [facility] [employer] Creatinine [Mass/Vol] 0.97 mg/dL 0.60 - 1.30 mg/dL [facility] [employer] GFR/1.73 sq M.predicted among non-blacks MDRD (S/P/Bld) [Vol rate/Area] 64 mL/min/{1.73_m2} - PINF [facility] Comment on above: Effective July 27, 2022, calculation based on the Chronic Kidney Disease Epidemiology Collaboration (CKD-EPI) equation refit without adjustment for race. Glucose [Mass/Vol] 132 mg/dL High 70 - 99 mg/dL [facility] [employer] Interpretation and review of laboratory results Abnormal [facility] Potassium [Moles/Vol] 4.6 mmol/L 3.6 - 5.1 mmol/L [employer] Sodium [Moles/Vol] 139 mmol/L 136 - 145 mmol/L [employer] Urea nitrogen [Mass/Vol] 19 mg/dL 8 - 20 mg/dL [employer] Urea nitrogen/Creatinine [Mass ratio] 19.6 mg/mg 12.0 - 20.0 [facility] [employer] Glucose Auto test strip (Bld ) [Mass/Vol]on 10-03-2022 Glucose [Mass/Vol] 122 mg/dL High 70 - 99 mg/dL [facility] Interpretation and review of laboratory results Abnormal [facility] [employer] Glucose [Mass/Vol] 150 mg/dL High 70 - 99 mg/dL [facility] [employer] Interpretation and review of laboratory results Abnormal [facility] [employer] Glucose [Mass/Vol] 116 mg/dL High 70 - 99 mg/dL [facility] Interpretation and review of laboratory results Abnormal [facility] [employer] Glucose [Mass/Vol] 115 mg/dL High 70 - 99 mg/dL [employer] Interpretation and review of laboratory results Abnormal [facility] [employer] Hemogram and platelets WO di fferential panel (Bld)on 10-03-2022 Erythrocyte distribution width (RBC) [Ratio] 13.9 % 11.0 - 14.8 % [facility] Hematocrit (Bld) [Volume fraction] 40.6 % 34.3 - 47.9 % [facility] Hemoglobin (Bld) [Mass/Vol] 13.0 g/dL 12.0 - 16.0 g/dL [facility] Interpretation and review of laboratory results Normal [facility] MCH (RBC) [Entitic mass] 28.8 pg [facility] MCHC (RBC) [Mass/Vol] 32.0 g/dL 30.8 - 35.3 g/dL [facility] MCV (RBC) [Entitic vol] 89.8 fL [facility] Platelet mean volume (Bld) [Entitic vol] 10.0 fL [facility] th Platelets (Bld) [#/Vol] 243 10*3/uL [facility] RBC (Bld) [#/Vol] 4.52 10*6/uL [facility] WBC (Bld) [#/Vol] 10.2 10*3/uL [facility] Pathology studyOrdered By: Lona Morel on 10-03-2022 Citation Jeff (Reference lab test) q0nrsFFxVFBpxKEtWXYsIive fzTqVSArlSWeW2UlsvxqIOlp MA7sWH4nuSgweAZbhYJbLMAn FdXdp1kjk251rPVkq5dwTGNC zbjbaDn9v1mrVPQAADjjTFAY SKb0aKpoG27jr9M4QoggK0xh PLKzIYgpmkRzzzC6DHGuzYLw BCz5RIZojXPsrrDaYuMqDPMg uNFwrZY7QETfEG8xgwilUWty MKqaREUdxcB1MRFecIQgO8Ol MKVyZZ5wdfgyBWF4NWhgFQEg WMV4KxZpEGEev3Ztskk5BkLw cGFyZFxwbGFpblxpXGYxXGZz QTdaU4RqTOHuJQX7WKAuiepk EUgzE24joI6nPD83PHhlhhFd HDYll7VqPDWkFYIrTItzDBSe aiQgGVusuH7fg3k4JVixZd5w XNOklqliITJ1KjCnBB64Qhzp dHJlZSBBdmUsIENvbHVtYnVz QRKXhRgtGLSeLbM9GsDRjAQm b0Bbp0SpDdHebDUutA9etSyo hgE1XPQxqNBnVj5uoOTpWzis YXJ9 [employer] Work Phone: Microscopic description Jeff (Endomyocardium) c5yptJAcHQPztFOKPNJvDTZg YA4ldVpbuGx4qEatCHEhnyS2 cEAzGDksu2moACL8l9paiuBL DtaySNMuKF6fWZqvJQSqBP7z ZmUwXGRlZmYyXHBhcGVydzEy ZwOsBLGpvSUunUK3METeQC9h jhvyEKtaIVztIGVbcvS1ULTc zINnX5VgUJGdVE8bhukeOSX8 SBWXRxiiLb8jlBZznEUGVafr ZjFcZmNoYXJzZXQwXGZuaWwg VREcERe6gC2Gl3lnXcyxK4ku fwVdzXDbUk2gmZTSOMcxTOXQ ZSj1iR6GJHXmU6CzYX3Jp7dx EQByyGDfSAA0EZqhg5moQKev TLN6KTAsBJAsBSCfUZ4GYxYd GLI7XdC2AVM6IzD4WMp9BVCD GGHvCwh8SvAsRZs7PHo4TIlx grtaADe4YTYsSKjfmSVuKY3b sIznAnwgrPeib6KrmBRpBJMv IFxcaWQgNTEwMDIgXFxkYiBP DrLeHaZdGcF7JxA0VsMdGYd2 KWikU8LCWRAmNTN4RBz2RnM8 JrJ2IHq7VVGZIl8vSzBlDMm4 ZDo4CJG7YBY2VpZnELJrWtRb VRLoDMZjIZhhvNNcUA0riDud JDTpUY9GPEFfDHjbUZDkTQTy ZbGbFG9cQ96nIShaXISrbErg OhDvAQSvjYYmxTRpuWQpv5M8 yNJxYAi1tUJry4E0zMnlZFkg ZmlsdHJhdGVzOlxwYXIgDQpc cGFyZCANClxwbGFpblxmMVxm juUfNYHgQBguCEu4akWcAFRi LpWzYYUcQ67hw9YYv9YlLP8X PAy8cpMlsfnpxU0rNVSgxjZg DQpcZjFcZnMyMCBSZWNlaXZl YMXjyjCab8QbLCuwerDcDNJd uQXbNPtafMnaqHZ9vRVavUKs LY4aZZHjWUAuLPtuXkMne92u GALbwSUrKGE6NXYvPONkG4Wc B7N3CCSvUqZqqODchkMcmKYu vP5mzir7oD0zZVGfQLBnkERt jM1iosSfnyPaWVN1eR4tRVEe GU7vIKUyhNWij4XymWS6bMYr gZfto5GmpAp4rTDgTUegNCOt d2CeUPOlUbetDBSnXVqssBRc AS8WYLKwQxBtOBYzN7irCWKo CX7GPIbnrysJZhpoFLDaWGQb R1taLXUnZHtwDYFoQ80zz2MU n5Nqn3mhqFcce0WbkNKgZV26 RJNijOJyWUD9TA7lgMajASYq DQpcZjJcZnMyMiANCn0= [employer] Work Phone: Pathology report final diagnosis Narrative j5bjfUNzVBVskRMxRHWxNito huYdIHRygJTiT8NnfftjHSex GG2bYY8omLwkkWEqyYCzHZIw UtOui2poa106pBXsi9rhOHWK zojtzTk6mHniS36tv4B0Khed A5wkWUJhRCyqISBsHEmvnCMt GWn6MUZchXCrjkKjYfVuTUYo uWPhnIK5DSGeKD0hmytsXAiv VBuuHDUeybC0YGPrmPMtH4Bd EPUoKO7ujdtpKJQ7HRghEJNh GKI7NbNiNJTmf2Ucgfa0HvJb yVa7t9yxDYXxXYEahXpkf3if CXF6JKZxcOVlU1sknD4zWZCh EG5woriis1roHFiaQOdwRDAx pXH4haT3LOGrnEFeU4IsqS2y SKCqGRGwdlVuqHwvCuI0QDxf yYIuyrvaTuYnA86igLJ0jDFt xQKyVTuaVzOzz92iYVcjjJEt ARZyUDLYDHmkiJb0LUBrs1Rf x0gncuuoaCPzfpLfoARwxFUm j1S1qZWeJFHjgz3agYGidL6u zFNunTE2xS9kHqfzCIL8 [employer] Work Phone: [employer] Work Phone: Cell count panel (Body fld)O rdered By: Navin Tracy on 10-02-2022 Clarity (Body fld) [facility] Color (Body fld) Yellow [employer] RBC Auto (Body fld) [#/Vol] 5000 /mm3 [employer] Comment on above: The reference range and other method performance specifications have not been established for this fluid specimen. The test result should be integrated into the clinical context for interpretation. Specimen source Nom (Body fld) Synovial [employer] WBC (Body fld) [#/Vol] 167 /mm3 [employer] Comment on above: The reference range and other method performance specifications have not been established for this fluid specimen. The test result should be integrated into the clinical context for interpretation. [employer] Differential panel (Body fld )on 10-02-2022 Lymphocytes/100 WBC Manual cnt (Body fld) 71.0 % [employer]th Monocytes+Macrophages/ 100 WBC (Body fld) 17.0 % [facility] h Neutrophils/100 WBC (Body fld) 3.0 % [facility] Other cells/100 WBC (Body fld) 9.0 % [employer] Comment on above: Lining cells [employer] Glucose Auto test strip (Bld ) [Mass/Vol]on 10-02-2022 Glucose [Mass/Vol] 188 mg/dL High 70 - 99 mg/dL [facility] Interpretation and review of laboratory results Abnormal [facility] [employer] Glucose [Mass/Vol] 121 mg/dL High 70 - 99 mg/dL [facility] [employer] Interpretation and review of laboratory results Abnormal [facility] [employer] Glucose [Mass/Vol] 78 mg/dL 70 - 99 mg/dL [facility] Interpretation and review of laboratory results Normal [employer] Glucose [Mass/Vol] 120 mg/dL High 70 - 99 mg/dL [facility] Interpretation and review of laboratory results Abnormal [facility] [employer] SARS-CoV-2 (COVID-19) RNA NA A+probe Ql (Resp)on 10-02-2022 Interpretation and review of laboratory results Normal [facility] SARS-CoV-2 (COVID-19) RdRp gene TORRES+probe Ql (Resp) Not detected Not Detected [employer] XR Knee 1-2 Views Lefton 1. Left total knee arthroplasty in appropriate position. -------- FINAL REPORT -------- Dictated By: Vlad Fiore Dictated Date: 10/02/2022 15:21 Assigned Physician: Vlad Fiore Reviewed and Electronically Signed By: Vlad Fiore Signed Date: 10/02/2022 15:22 Workstation ID: [id number] Transcribed By: Self Edit Transcribed Date: 10/02/2022 15:21 WesthouseCRIBE EXAMINATION TYPE: XR KNEE 1-2 VIEWS LEFT [...] By: Self Edit Transcribed Date: 10/02/2022 15:21 [facility] Radiology Study observation (narrative) [facility] XR Knee 1-2 Views LeftOrdere d By: Vlad Fiore on 10-02-2022 [employer] Work Phone: Office Visit (Cardiology)on 09-25-2022 Follow-up visit [...] Weight Tips; Status:Complete - Retrospective Authorization; Done: [id number] Some eating tips that can help you lose weight.; Status:Complete - Retrospective Authorization; Done: [id number] SocHx: Former smoker Tobacco Use Screening; Status:Complete; Done: [id number] Patient Instructions Please bring all medicines, vitamins, [...] Follow up in 1 year. Chief Complaint RENUKA GRAHAM is being seen for an annual [...] implantable device. 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 I reviewed her recent [...] Inhalation AerosolUSE (more content not included)... Normal [employer] Tobacco Screening.on 022 Fall risk assessment a) No falls within the last year -[facility] [employer] 250 DO Work Phone: Tobacco use status [facility] b) No formerly [facility] 250 DO Work Phone: Tobacco Screening. Yes [facility] 250 DO Work Phone: PTH INTACTon 09-24-2022 PTH, Intact 31 pg/mL Normal 15-65 Comment on above: Performed By: #### P THINT ####[facility] [address] [place] [address]Dr. Kyree Neal HEMOGRAM AND PLATELon 2021 Hematocrit (Bld) [Volume fraction] 38.4 % Normal 36.0-48.0 Comment on above: Performed By: #### H H #### [facility] [address] [address] [address] Kryee Neal Hemoglobin (Bld) [Mass/Vol] 12.2 g/dL Normal 12.0-16.0 [facility] Comment on above: Performed By: #### H H #### [facility] [address] [place] [address] Dr. Kyree Neal MCH (RBC) [Entitic mass] 28.6 pg Normal 26.7-34.0 [facility] Comment on above: Performed By: #### H H #### [facility] [address] [place] [address] Dr. Kyree Neal MCHC (RBC) [Mass/Vol] 31.8 g/dL Normal 29.9-35.2 [facility] Comment on above: Performed By: #### H H #### [facility] [address] [place] [address] Dr. Kyree Neal MCV (RBC) [Entitic vol] 89.9 fL Normal 81.0-99.0 [facility] Comment on above: Performed By: #### H H #### [facility] [address] [place] [address] Dr. Kyree Neal PLT 250 103/ul Normal 150-450 [facility] Comment on above: Performed By: #### H H #### [facility] [address] [place] [address] Dr. Kyree Neal RBC 4.27 106/ul Normal 4.20-5.40 [facility] Comment on above: Performed By: #### H H #### [facility] [address] [place] [address] Dr. Kyree Neal WBC 7.7 103/ul Normal 4.0-11.0 Comment on above: Performed By: #### H H #### [facility] [address] [address] [address] Kyree Neal MAGNESIUMon 09-23-2022 Magnesium [Mass/Vol] 2.2 mg/dL Normal 1.8-2.4 Comment on above: Performed By: #### U PRUDENCIO, CMP, MG ####[facility] [address] [place] [address]DrDulce Neal PROF 14(COMP METB)on 022 Albumin [Mass/Vol] 3.5 g/dL Normal 3.4-5.0 [facility] Comment on above: Performed By: #### U PRUDENCIO, CMP, MG ####[facility] [address] [place] [address]DrDulce Neal Albumin/Globulin [Mass ratio] 0.9 {ratio} Normal Comment on above: Performed By: #### U PRUDENCIO, CMP, MG ####[facility] [address] [id number] Neal ALP [Catalytic activity/Vol] 61 U/L Normal 46-116 Comment on above: Performed By: #### U PURDENCIO, CMP, MG ####[facility] [address] [place] [id number] Neal ALT [Catalytic activity/Vol] 23 U/L Normal 14-59 [facility] Comment on above: Performed By: #### U PRUDENCIO, CMP, MG ####[facility] [address] [place] [id number] Neal Anion gap [Moles/Vol] 9.9 mmol/L Normal Comment on above: Performed By: #### U PRUDENCIO, CMP, MG ####[facility] [address] [id number]. Kyree Neal AST [Catalytic activity/Vol] 21 U/L Normal 15-37 Comment on above: Performed By: #### U PRUDENCIO, CMP, MG ####[facility] [address] [id number]. Kyree Neal Bilirubin [Mass/Vol] 0.3 mg/dL Normal 0.2-1.0 [facility] Comment on above: Performed By: #### U PRUDENCIO, CMP, MG ####[facility] [address] [id number]. Kyree Neal Calcium [Mass/Vol] 9.0 mg/dL Normal 8.5-10.1 [facility] Comment on above: Performed By: #### U PRUDENCIO, CMP, MG ####[facility] [address] [place] [address]Dr. Kyree Neal Chloride [Moles/Vol] 106 mmol/L Normal 98-107 Comment on above: Performed By: #### U PRUDENCIO, CMP, MG ####[facility] [address] [place] [address]Dr. Kyree Neal CO2 [Moles/Vol] 29.4 mmol/L Normal 21.0-32.0 [facility] Comment on above: Performed By: #### U PRUDENCIO, CMP, MG ####[facility] [address] [place], [place] [address]Dr. Kyree Neal Creatinine [Mass/Vol] 0.90 mg/dL Normal 0.55-1.02 Comment on above: Performed By: #### U PRUDENCIO, CMP, MG ####[facility] [address] [place] [address]Dr. Kyree Neal EGFR-AF [facility] >60 Normal >=60 [facility] Comment on above: Performed By: #### U PRUDENCIO, CMP, MG ####[facility] [address] [place] [id number]. Kyree Neal EGFR-NON AF [facility] >60 Normal >=60 Comment on above: Performed By: #### U PRUDENCIO, CMP, MG ####[facility] [address] [place] [address]Dr. Kyree Neal Globulin (S) [Mass/Vol] 3.8 g/dL Normal [facility] Comment on above: Performed By: #### U PRUDENCIO, CMP, MG ####[facility] [address] [place] [id number]. Kyree Neal Glucose [Mass/Vol] 89 mg/dL Normal 74-106 [facility] Comment on above: Performed By: #### U PRUDENCIO, CMP, MG ####[facility] [address] [place] [address]Dr. Kyree Neal Potassium [Moles/Vol] 4.3 mmol/L Normal 3.5-5.1 [facility] Comment on above: Performed By: #### U PRUDENCIO, CMP, MG ####[facility] [address] [place] [address]Dr. Kyree Neal Protein [Mass/Vol] 7.3 g/dL Normal 6.4-8.2 [facility] Comment on above: Performed By: #### U PRUDENCIO, CMP, MG ####[facility] [address] [place] [address]Dr. Kyree Neal Sodium [Moles/Vol] 141 mmol/L Normal 136-145 [facility] Comment on above: Performed By: #### U PRUDENCIO, CMP, MG ####[facility] [address] [place] [address]Dr. Kyree Neal Urea nitrogen [Mass/Vol] 18.0 mg/dL Normal 7.0-18.0 Comment on above: Performed By: #### U PRUDENCIO, CMP, MG ####[facility] [address] [place] [address]Dr. Kyree Neal Urea nitrogen/Creatinine [Mass ratio] 20.0 mg/mg Normal [facility] Comment on above: Performed By: #### U PRUDENCIO, CMP, MG ####[facility] [address] [place] [address]DrDulce Neal UA RANDOMon 09-23-2022 Bilirubin Ql (U) Negative Normal NEGATIVE [facility] Comment on above: Performed By: #### S EDR #### [facility] [address] [address] [address] Kyree Neal Clarity (U) CLEAR Normal CLEAR Comment on above: Performed By: #### S EDR #### [facility] [address] [address] [address] Kyree Neal Color (U) YELLOW Normal YELLOW Comment on above: Performed By: #### S EDR #### [facility] [address] [place] [address] Dr. Kyree Neal Glucose Ql (U) Negative Normal NEGATIVE [place] Comment on above: Performed By: #### S EDR #### [facility] [address] [address] [address] Kyree Neal Hemoglobin Ql (U) Negative Normal NEGATIVE [facility] Comment on above: Performed By: #### S EDR #### [facility] [address] [place] [address] Dr. Kyree Neal Ketones Ql (U) Negative Normal NEGATIVE [place] Comment on above: Performed By: #### S EDR #### [facility] [address] [place] [address] Dr. Kyree Neal LEUKOCYTES Negative Normal NEGATIVE Comment on above: Performed By: #### S EDR #### [facility] [address] [place] [address] Dr. Kyree Neal Nitrite Ql (U) Negative Normal NEGATIVE [place] Comment on above: Performed By: #### S EDR #### [facility] [address] [place] [address] Dr. Kyree Neal pH (U) 5.5 [pH] Normal 5-9 Comment on above: Performed By: #### S EDR #### [facility] [address] [address] [address] Kyree Neal SPEC GRAVITY 1.025 Normal 1.005-<=1. 025 Comment on above: Performed By: #### S EDR #### [facility] [address] [place] [address] Dr. Kyree Neal UA PROTEIN Negative Normal NEGATIVE/ TRACE [facility] Comment on above: Performed By: #### S EDR #### [facility] [address] [address] [address] Kyree Neal Urobilinogen Qn (U) 0.2 {Herrera'U}/dL Normal 0.2 - 1. 0 Comment on above: Performed By: #### S EDR #### [facility] [address] [place] [address] Dr. Kyree Neal URIC ACID SERUMon 09-23-2022 Urate [Mass/Vol] 3.7 mg/dL Normal 2.6-6.0 [facility] Comment on above: Performed By: #### U PRUDENCIO, CMP, MG ####[facility] [address] [address]Dr. Kyree Neal URINE T PROTEIN CREAT RATIOo n 09-23-2022 Protein (U) [Mass/Vol] 11.1 mg/dL Normal <=12.0 [facility] Comment on above: Performed By: #### U RTPCR ####[facility] [address] [place] [address]DrDulce Neal UR PROT CREAT RAT 0.18 Normal [facility] Comment on above: Performed By: #### U RTPCR ####[facility] [address] [address]Dr. Kyree Neal URINE CREAT 62.29 mg/dL Normal 20.00-300. 00 Comment on above: Performed By: #### U RTPCR ####[facility] [address] [place] [address]Dr. Kyree Neal VITAMIN D 25 OHon 09-23-2022 VIT D 25-OH 57.7 ng/mL Normal Comment on above: Performed By: #### H H #### [facility] [address] [place] [address] Dr. Kyree Neal VIT D RANGES SEE BELOW Normal Comment on above: Result Comment: <20 ng/mL Vit D deficient 20 - <30 ng/mL Vit D insufficient 30 - 100 ng/mL Vit D sufficient >100 ng/mL Potential Toxicity Performed By: #### H H #### [facility] [address] [address] [address] Kyree Neal A1C HEMOGLOBINon 08-18-2022 HbA1c (Bld) [Mass fraction] 5.7 % [facility] [employer] Other HbA1c (Bld) [Mass fraction]o n 08-18-2022 A1C HEMOGLOBIN [facility] [employer] Other Urine culture routineOrdered By: Deidra Lee on 05-29-2022 Bacteria identified Cx Nom (U) Escherichia coli [facility] Automated erythrocytes count in urine sediment (number/area)Ordered By: Deidra Lee on 05-27-2022 RBC Auto (Urine sed) [#/Area] 10-19 [HPF] 0-4 [facility] Automated leukocytes count i n urine sediment (number/area)Ordered By: Deidra Lee on 05-27-2022 WBC Auto (Urine sed) [#/Area] 20-49 [HPF] 0-4 [facility] Bilirubin Test strip Ql (U)O rdered By: Deidra Lee on 05-27-2022 Bilirubin Ql (U) Negative Negative [facility] Color Auto (U)Ordered By: Sayda Lee on 05-27-2022 Color (U) Yellow Yellow [facility] Ketones Auto test strip (U) [Mass/Vol]Ordered By: Deidra Lee on 05-27-2022 Ketones (U) [Mass/Vol] Negative Negative [facility] - UrinalysisOrder ed By: Deidra Lee on 05-27-2022 Hyaline casts LM Ql (Urine sed) 0-8 [LPF] 0-8 [facility] Nitrite Test strip Ql (U)Ord ered By: Deidra Lee on 05-27-2022 Nitrite Ql (U) Negative Negative [facility] Protein Auto test strip (U) [Mass/Vol]Ordered By: Deidra Lee on 05-27-2022 Protein (U) [Mass/Vol] Negative Negative [facility] Specific gravity Auto test s trip (U) [Rel density]Ordered By: Deidra Lee on 05-27-2022 Specific gravity (U) [Rel density] 1.007 1.001-1.03 0 [facility] Squamous epithelial cells de tection in urine sediment by light microscopyOrdered By: Deidra Lee on 05-27-2022 Epithelial cells.squamous LM Ql (Urine sed) None seen [HPF] 0-2 [facility] Urine bacteria detection by automated methodOrdered By: Deidra Lee on 05-27-2022 Bacteria Auto Ql (U) 2+ None Seen [facility] Urine clarity by refractomet ry automatedOrdered By: Deidra Lee on 05-27-2022 Clarity Refractometry automated (U) Clear Clear [facility] Urine glucose measurement by automated test strip (mass/volume)Ordered By: Deidra Lee on 05-27-2022 Glucose Auto test strip (U) [Mass/Vol] Normal mg/dL Normal [facility] Urine hemoglobin detection b y automated test stripOrdered By: Deidra Lee on 05-27-2022 Hemoglobin Auto test strip Ql (U) 2+ Negative [facility] Urine leukocyte esterase det ection by automated test stripOrdered By: Deidra Lee on 05-27-2022 Leukocyte esterase Auto test strip Ql (U) 3+ Negative [facility] Urobilinogen Auto test strip (U) [Mass/Vol]Ordered By: Deidra Lee on 05-27-2022 Urobilinogen (U) [Mass/Vol] Normal mg/dL Normal [facility] pH Auto test strip (U)Ordere d By: Deidra Lee on 05-27-2022 pH (U) 5.5 [pH] 5.0-9.0 [facility] Basophils Auto (Bld) [#/Vol] Ordered By: Peter Sosa on 05-21-2022 Basophils (Bld) [#/Vol] 0.1 10*3/uL 0.0-0.2 [facility] Basophils/100 WBC Auto (Bld) Ordered By: Peter Sosa on 05-21-2022 Basophils/100 WBC (Bld) 0.8 % . [facility] Blood hemoglobin measurement (mass/volume)Ordered By: Peter Sosa on 05-21-2022 Hemoglobin (Bld) [Mass/Vol] 12.8 g/dL 11.8-15.4 [facility] Blood leukocytes automated c ount (number/volume)Ordered By: Peter Sosa on 05-21-2022 WBC (Bld) [#/Vol] 8.5 10*3/uL 4.5-11.0 [facility] Body fluid albumin measureme nt (mass/volume)Ordered By: Peter Sosa on 05-21-2022 Albumin (Body fld) [Mass/Vol] 3.7 g/dL 3.2-5.5 [facility] Cholesterol [Mass/volume] in Serum or PlasmaOrdered By: Peter Sosa on 05-21-2022 Cholesterol [Mass/Vol] 204 mg/dL 140-200 [facility] Comment on above: Chol less than 200 m g/dl low risk Chol 201-239 mg/dl borderline risk Chol 240 mg/dl and greater high risk Cholesterol in LDL Calc [Mas s/Vol]Ordered By: Peter Sosa on 05-21-2022 Cholesterol in LDL [Mass/Vol] 129 mg/dL 0-100 [facility] Comment on above: LDL ATP III CLASSIFI CATION LDL less than 100 mg/dL Optimal LDL 100-129 mg/dL Near or above optimal LDL 130-159 mg/dL Borderline high LDL 160-189 mg/dL High LDL greater than 189 mg/dL Very high Cholesterol in VLDL Calc [Ma ss/Vol]Ordered By: Peter Sosa on 05-21-2022 Cholesterol in VLDL [Mass/Vol] 20 mg/dL [facility] Creatinine [Mass/volume] in UrineOrdered By: Peter Sosa on 05-21-2022 Creatinine (U) [Mass/Vol] 185.2 mg/dL [facility] Comment on above: No reference range e stablished Creatinine and Glomerular fi ltration rate.predicted panel (S/P/Bld)Ordered By: Peter Sosa on 05-21-2022 Creatinine [Mass/Vol] 1.31 mg/dL 0.44-1.[address] [facility] Eosinophils Auto (Bld) [#/Vo l]Ordered By: Peter Sosa on 05-21-2022 Eosinophils (Bld) [#/Vol] 0.3 10*3/uL 0.0-0.45 [facility] Eosinophils/100 WBC Auto (Bl d)Ordered By: Peter Sosa on 05-21-2022 Eosinophils/100 WBC (Bld) 3.4 % . [facility] Erythrocyte distribution wid th Auto (RBC) [Ratio]Ordered By: Peter Sosa on 05-21-2022 Erythrocyte distribution width (RBC) [Ratio] 14.8 % 11.9-15.3 [facility] Estimated glomerular filtrat ion rate (GFR) non- AmericanOrdered By: Peter Sosa on 05-21-2022 GFR/1.73 sq M.predicted among non-blacks MDRD (S/P/Bld) [Vol rate/Area] 41 mL/Min [facility] Folate [Mass/volume] in Seru m or PlasmaOrdered By: Peter Sosa on 05-21-2022 Folate [Mass/Vol] ng/mL >5.9 [facility] Comment on above: Folate reference ran ge: >5.9 ng/ml The WHO technical consultation on folate and vitamin b12 deficiencies has determined that folate concentrations less than 4 ng/ml are considered deficient. Globulin Calc (S) [Mass/Vol] Ordered By: Peter Sosa on 05-21-2022 Globulin (S) [Mass/Vol] 2.7 g/dL [facility] Hematocrit Auto (Bld) [Volum e fraction]Ordered By: Peter Sosa on 05-21-2022 Hematocrit (Bld) [Volume fraction] 39.9 % 34.0-46.4 [facility] Laboratory - Chemistry and C hemistry - challengeOrdered By: Peter Sosa on 05-21-2022 Cobalamin (Vitamin B12) [Mass/Vol] 384 pg/mL 180-914 [facility] - Hematology and Cell countsOrdered By: Peter Sosa on 05-21-2022 Nucleated RBC/100 WBC (Bld) [Ratio] 0.1 % 0-0.5 [facility] Lymphocytes Auto (Bld) [#/Vo l]Ordered By: Peter Sosa on 05-21-2022 Lymphocytes (Bld) [#/Vol] 1.9 10*3/uL 1.00-4.8 [facility] Lymphocytes/100 WBC Auto (Bl d)Ordered By: Peter Sosa on 05-21-2022 Lymphocytes/100 WBC (Bld) 22.6 % . [facility] MCH Auto (RBC) [Entitic mass ]Ordered By: Peter Sosa on 05-21-2022 MCH (RBC) [Entitic mass] 28.2 pg 24.7-34.3 [facility] MCHC Auto (RBC) [Mass/Vol]Or dered By: Peter Sosa on 05-21-2022 MCHC (RBC) [Mass/Vol] 32.0 g/dL 32.0-35.0 [facility] MCV Auto (RBC) [Entitic vol] Ordered By: Peter Sosa on 05-21-2022 MCV (RBC) [Entitic vol] 87.9 fL 80-100 [facility] Monocytes Auto (Bld) [#/Vol] Ordered By: Peter Sosa on 05-21-2022 Monocytes (Bld) [#/Vol] 0.7 10*3/uL 0.0-0.8 [facility] Monocytes/100 WBC Auto (Bld) Ordered By: Peter Sosa on 05-21-2022 Monocytes/100 WBC (Bld) 8.4 % . [facility] Neutrophils Auto (Bld) [#/Vo l]Ordered By: Peter Sosa on 05-21-2022 Neutrophils (Bld) [#/Vol] 5.5 10*3/uL 1.8-7.7 [facility] Neutrophils/100 WBC Auto (Bl d)Ordered By: Peter Sosa on 05-21-2022 Neutrophils/100 WBC (Bld) 64.8 % . [facility] No Panel InformationOrdered By: Peter Sosa on 05-21-2022 25-Hydroxy Vitamin D Total 50.4 ng/mL 30-100 [facility] Comment on above: VITAMIN D STATUS 25( [place])VITAMIN D RANGE (ng/mL) Deficient <20 Insufficient 20 to <30 Sufficient 30 to 100 Reference: Lubna MF,Aleida NC, Tavo EDWARDS, et al. Evaluation,treatment, and prevention of vitamin D deficiency; an Endocrine Society clinical practice guideline. JCEM. 2010; 96():1911-30. Estimated GFR () 49 mL/Min [facility] Comment on above: GFR estimated refere nce range: According to KDOQI guidelines, <60 ml/min/1.73m2 is sufficient to diagnose a patient with chronic kidney disease. Pharmacy Creatinine Clearance (Chem N/A [facility] Platelet mean volume Auto (B ld) [Entitic vol]Ordered By: Peter Sosa on 05-21-2022 Platelet mean volume (Bld) [Entitic vol] 8.4 fL 6.3-10.7 [facility] Platelets Auto (Bld) [#/Vol] Ordered By: Peter Sosa on 05-21-2022 Platelets (Bld) [#/Vol] 240 10*3/uL 150-450 [facility] Protein [Mass/volume] in Ser um or PlasmaOrdered By: Peter Sosa on 05-21-2022 Protein [Mass/Vol] 6.4 g/dL 6.1-7.9 [facility] RBC Auto (Bld) [#/Vol]Ordere d By: Peter Sosa on 05-21-2022 RBC (Bld) [#/Vol] 4.54 10*6/uL 3.60-5.00 [facility] Serum or plasma alanine victoria otransferase measurement without P-5'-P (enzymatic activiOrdered By: Peter Sosa on 05-21-2022 ALT No additional P-5'-P [Catalytic activity/Vol] 27 U/L 10-60 [facility] Serum or plasma albumin/glob ulin mass ratioOrdered By: Peter Sosa on 05-21-2022 Albumin/Globulin [Mass ratio] 1.4 {ratio} [facility] Serum or plasma alkaline adams sphatase measurement (enzymatic activity/volume)Ordered By: Peter Sosa on 05-21-2022 ALP [Catalytic activity/Vol] 59 U/L 32-92 [facility] Serum or plasma aspartate am inotransferase measurement (enzymatic activity/volume)Ordered By: Peter Sosa on 05-21-2022 AST [Catalytic activity/Vol] 26 U/L 10-42 [facility] Serum or plasma calcium darrell urement (mass/volume)Ordered By: Peter Sosa on 05-21-2022 Calcium [Mass/Vol] 9.5 mg/dL 8.2-10.2 [facility] Serum or plasma chloride jose surement (moles/volume)Ordered By: Peter Sosa on 05-21-2022 Chloride [Moles/Vol] 102 mmol/L 95-114 [facility] [place] Serum or plasma glucose darrell urement (mass/volume)Ordered By: Peter Sosa on 05-21-2022 Glucose [Mass/Vol] 93 mg/dL 70-100 [facility] Comment on above: ADA recommended refe rence range Random Glucose Reference Range is dependent on time and content of last meal. Glucose of more than 200 mg/dL in a nonstressed, ambulatory subject supports the diagnosis of Diabetes Mellitus. Serum or plasma high density lipoprotein (HDL) cholesterol measurementOrdered By: Peter Sosa on 05-21-2022 Cholesterol in HDL [Mass/Vol] 55 mg/dL 35-85 [facility] Comment on above: HDL CHOL ATP-III CLA SSIFICATION Cardiovascular Risk HDL > or equal to 60 mg/dL LOW HDL < 40 mg/dL HIGH Serum or plasma potassium me asurement (moles/volume)Ordered By: Peter Sosa on 05-21-2022 Potassium [Moles/Vol] 4.2 mmol/L 3.5-5.[address] [facility] Serum or plasma sodium measu rement (moles/volume)Ordered By: Peter Sosa on 05-21-2022 Sodium [Moles/Vol] 140 mmol/L 136-146 [facility] Serum or plasma total biliru bin measurement (mass/volume)Ordered By: Peter Sosa on 05-21-2022 Bilirubin [Mass/Vol] 0.4 mg/dL 0.3-1.2 [facility] [place] Serum or plasma total carbon dioxide measurement (moles/volume)Ordered By: Peter Sosa on 05-21-2022 CO2 [Moles/Vol] 29.5 mmol/L 22.0-30.0 [facility] Serum or plasma total choles terol/high density lipoprotein (HDL) cholesterol mass ratOrdered By: Peter Sosa on 05-21-2022 Cholesterol.total/Chol esterol in HDL [Mass ratio] 3.7 {ratio} <5.0 [facility] Serum or plasma urea nitroge n measurement (mass/volume)Ordered By: Peter Sosa on 05-21-2022 Urea nitrogen [Mass/Vol] 30 mg/dL 9-23 [facility] TSH DL <= 0.005 mIU/L QnOrde red By: Peter Sosa on 05-21-2022 TSH Qn 2.03 m[IU]/L 0.45-5.33 [facility] Thyroxine (T4) free [Mass/vo lume] in Serum or PlasmaOrdered By: Peter Sosa on 05-21-2022 Free T4 [Mass/Vol] 0.96 ng/dL 0.61-1.12 [facility] Triglyceride [Mass/volume] i n Serum or PlasmaOrdered By: Peter Sosa on 05-21-2022 Triglyceride [Mass/Vol] 102 mg/dL 35-149 [facility] Comment on above: TRIG ATP III CLASSIF ICATION TRIG less than 150 mg/dL Normal TRIG 150-199 mg/dL Borderline high TRIG 200-500 mg/dL High TRIG greater than 500 mg/dL Very high Standard traceable to the Center for Disease Conrtrol and Prevention (CDC) test method. Triiodothyronine (T3) Free [ Mass/volume] in Serum or PlasmaOrdered By: Peter Sosa on 05-21-2022 Free T3 [Mass/Vol] 3.88 pg/mL 2.50-3.90 [facility] Urine microalbumin measureme nt with detection limit of 20 mg/L or less (mass/volume)Ordered By: Peter Sosa on 05-21-2022 Albumin DL <= 20 mg/L (U) [Mass/Vol] mg/dL 0.0-1.8 [facility] Urine microalbumin/creatinin e mass ratioOrdered By: Peter Sosa on 05-21-2022 Albumin/Creatinine DL <= 20 mg/L (U) [Mass ratio] TNP [facility] Comment on above: Test not performed US [...] of a lipoma Electronically authenticated by: ANUSHA WHITESIDE Date: 2022-05-08 16:18 Normal [facility] C3 and C4 COMPLEMENTon 04-30 Complement C3, Serum 173 mg/dL Critically high 82-167 [facility] Comment on above: Performed By: #### S EDR #### [facility] [address] [address] [address] Kyree Neal Complement C4, Serum 35 mg/dL Normal 12-38 Comment on above: Performed By: #### S EDR #### [facility] [address] [address] [address] Kyree Neal COMPLEMENT TOTAL (CH50)on Complement, Total (CH50) >60 Normal >41 Comment on above: Result Comment: Age Male [...] range values. Performed By: #### C H50T ####[facility] [address] [place], [place] [address]YnDr. Kyree Neal NET DEVELOPMENT MANAGER ANTIBODIESon 04-30-2022 NET DEVELOPMENT MANAGER Antibodies <0.2 Normal 0.0-0.9 [place] Comment on above: Performed By: #### S EDR #### [facility] [address] [place], [place] [address] Dr. Kyree Neal CBC AUTO DIFFon 04-29-2022 BASO # 0.1 103/ul Normal 0.0-0.1 [facility] Comment on above: Performed By: #### C BC ####[facility] [address] [place], [place] [address]Dr. Kyree Neal Basophils/100 WBC (Bld) 0.9 % Normal 0.2-2.0 [facility] Comment on above: Performed By: #### C BC ####[facility] [address] [place], [place] [address]Dr. Kyree Neal EO # 0.4 103/ul Normal 0.0-0.7 [facility] Comment on above: Performed By: #### C BC ####[facility] [address] [place], [place] [address]Dr. Kyree Neal Eosinophils/100 WBC (Bld) 5.4 % Normal 0.9-7.0 [facility] Comment on above: Performed By: #### C BC ####[facility] [address] [place], [place] [address]Dr. Kyree Neal Erythrocyte distribution width (RBC) [Ratio] 13.9 % Normal 11.0-15.0 [facility] Comment on above: Performed By: #### C BC ####[facility] [address] [place], [place] [address]Dr. Kyree Neal Hematocrit (Bld) [Volume fraction] 40.9 % Normal 36.0-48.0 [facility] Comment on above: Performed By: #### C BC ####[facility] [address] [place], [place] [address]Dr. Kyree Neal Hemoglobin (Bld) [Mass/Vol] 12.8 g/dL Normal 12.0-16.0 [facility] Comment on above: Performed By: #### C BC ####[facility] [address] [place], [place] [address]Dr. Kyree Neal IG # 0.03 10e3/ul Normal 0.00-0.03 [facility] Comment on above: Performed By: #### C BC ####[facility] [address] [place], [place] [address]Dr. Kyree Neal IG % 0.4 % Normal 0.0-0.5 Comment on above: Performed By: #### C BC ####[facility] [address] [address]DrDulce Kyree Ángel LYMPH # 1.7 103/ul Normal 1.2-3.8 Comment on above: Performed By: #### C BC ####[facility] [address] [address]DrDulce Aaliyahjeff Neal Lymphocytes/100 WBC (Bld) 21.2 % Normal 20.5-60.0 Comment on above: Performed By: #### C BC ####[facility] [address] [address]DrDulce Aaliyahjeff Neal MANUAL DIFF REQ NO Normal [facility] Comment on above: Performed By: #### C BC ####[facility] [address] [place], [place] [address]Dr. Kyree Ángel MCH (RBC) [Entitic mass] 28.2 pg Normal 26.7-34.0 Comment on above: Performed By: #### C BC ####[facility] [address] [place], [place] [id number]. Kyree Ángel MCHC (RBC) [Mass/Vol] 31.3 g/dL Normal 29.9-35.2 [facility] Comment on above: Performed By: #### C BC ####[facility] [address] [place], [place] [id number]. Kyree Ángel MCV (RBC) [Entitic vol] 90.1 fL Normal 81.0-99.0 [facility] Comment on above: Performed By: #### C BC ####[facility] [address] [place], [place] [address]DrDulce Neal MONO # 0.6 103/ul Normal 0.3-0.8 Comment on above: Performed By: #### C BC ####[facility] [address] [place], [place] [address]Dr. Aaliyahjeff Neal Monocytes/100 WBC (Bld) 8.2 % Normal 1.7-12.0 [facility] Comment on above: Performed By: #### C BC ####[facility] [address] [id number]. Kyree Neal NEUT # 5.0 103/ul Normal 1.4-6.5 Comment on above: Performed By: #### C BC ####[facility] [address] [address]Dr. Kyree Neal Neutrophils/100 WBC (Bld) 63.9 % Normal 43.0-75.0 [facility] Comment on above: Performed By: #### C BC ####[facility] [address] [address]DrDulce Neal Platelet mean volume (Bld) [Entitic vol] 9.7 fL Normal 9.5-13.5 [facility] Comment on above: Performed By: #### C BC ####[facility] [address] [address]Dr. Kyree Neal PLT 245 103/ul Normal 150-450 [facility] Comment on above: Performed By: #### C BC ####[facility] [address] [address]Dr. Kyree Neal RBC 4.54 106/ul Normal 4.20-5.40 [facility] Comment on above: Performed By: #### C BC ####[facility] [address] [address]Dr. Kyree Neal WBC 7.8 103/ul Normal 4.0-11.0 [facility] Comment on above: Performed By: #### C BC ####[facility] [address] [id number] Neal CRPon 04-29-2022 CRP 1.1 mg/dL Critically high <=1.0 [facility] Comment on above: Performed By: #### H H #### [facility] [address] [place], [place] [address] Dr. Kyree Neal PROF 14(COMP METB)on 07-12-2 022 Albumin [Mass/Vol] 3.5 g/dL Normal 3.4-5.0 [facility] Comment on above: Performed By: #### H H #### [facility] [address] [place] [address] Dr. Kyree Neal Albumin/Globulin [Mass ratio] 0.9 {ratio} Normal Comment on above: Performed By: #### H H #### [facility] [address] [place] [address] Dr. Kyree Neal ALP [Catalytic activity/Vol] 64 U/L Normal 46-116 Comment on above: Performed By: #### H H #### [facility] [address] [place] [address] Dr. Kyree Neal ALT [Catalytic activity/Vol] 29 U/L Normal 14-59 Comment on above: Performed By: #### H H #### [facility] [address] [place] [address] Dr. Kyree Neal Anion gap [Moles/Vol] 10.5 mmol/L Normal [facility] Comment on above: Performed By: #### H H #### [facility] [address] [place] [address] Dr. Kyree Neal AST [Catalytic activity/Vol] 20 U/L Normal 15-37 Comment on above: Performed By: #### H H #### [facility] [address] [place] [address] Dr. Kyree Neal Bilirubin [Mass/Vol] 0.4 mg/dL Normal 0.2-1.0 Comment on above: Performed By: #### H H #### [facility] [address] [place] [address] Dr. Kyree Neal Calcium [Mass/Vol] 9.4 mg/dL Normal 8.5-10.1 [facility] Comment on above: Performed By: #### H H #### [facility] [address] [place] [address] Dr. Kyree Neal Chloride [Moles/Vol] 106 mmol/L Normal 98-107 Comment on above: Performed By: #### H H #### [facility] [address] [address] [address] Kyree Neal CO2 [Moles/Vol] 30.4 mmol/L Normal 21.0-32.0 [facility] Comment on above: Performed By: #### H H #### [facility] [address] [address] [address] Kyree Neal Creatinine [Mass/Vol] 1.03 mg/dL Critically high 0.55-1.02 Comment on above: Performed By: #### H H #### [facility] [address] [address] [address] Kyree Neal EGFR-AF [facility] HEL[facility] >60 Normal >=60 [facility] Comment on above: Performed By: #### H H #### [facility] [address] [address] [address] Kyree Neal EGFR-NON AF [facility] 54 mL/min/1.73m2 Critically low >=60 Comment on above: Performed By: #### H H #### [facility] [address] [address] [address] Kyree Neal Globulin (S) [Mass/Vol] 3.8 g/dL Normal Comment on above: Performed By: #### H H #### [facility] [address] [address] [address] Kyree Neal Glucose [Mass/Vol] 131 mg/dL Critically high 74-106 [facility] Comment on above: Performed By: #### H H #### [facility] [address] [address] [address] Kyree Neal Potassium [Moles/Vol] 3.9 mmol/L Normal 3.5-5.1 Comment on above: Performed By: #### H H #### [facility] [address] [address] [address] Kyree Neal Protein [Mass/Vol] 7.3 g/dL Normal 6.4-8.2 [facility] Comment on above: Performed By: #### H H #### [facility] [address] [address] [address] Kyree Neal Sodium [Moles/Vol] 143 mmol/L Normal 136-145 [facility] Comment on above: Performed By: #### H H #### [facility] [address] [address] [address] Kyree Neal Urea nitrogen [Mass/Vol] 24.0 mg/dL Critically high 7.0-18.0 Comment on above: Performed By: #### H H #### [facility] [address] [address] [address] Kyree Neal Urea nitrogen/Creatinine [Mass ratio] 23.3 mg/mg Normal Comment on above: Performed By: #### H H #### [facility] [address] [place] [address] Dr. Kyree Neal [facility] SED RATE 40 mm/hr Critically high <=30 [facility] Comment on above: Performed By: #### H H #### [facility] [address] [place] [address] Dr. Kyree Neal UA RANDOM W/MICROSCOPICon BACTERIA NONE SEEN Normal NONE SEEN Comment on above: Performed By: #### U AMIC #### [facility] [address] [place] [address] Dr. Kyree Neal Bilirubin Ql (U) Negative Normal NEGATIVE [facility] Comment on above: Performed By: #### U AMIC #### [facility] [address] [place] [address] Dr. Kyree Neal CAST NONE SEEN Normal NONE SEEN Comment on above: Performed By: #### U AMIC #### [facility] [address] [place] [address] Dr. Kyree Neal Clarity (U) CLEAR Normal CLEAR [facility] Comment on above: Performed By: #### U AMIC #### [facility] [address] [place] [address] Dr. Kyree Neal Color (U) LT. YELLOW Normal YELLOW [facility] Comment on above: Performed By: #### U AMIC #### [facility] [address] [address] [address] Kyree Neal Crystals LM Nom (Urine sed) NONE SEEN Normal NONE SEEN Comment on above: Performed By: #### U AMIC #### [facility] [address] [address] [address] Kyree Neal Epithelial cells LM Ql (Urine sed) MODERATE Abnormal NONE SEEN /RARE [facility] Comment on above: Performed By: #### U AMIC #### [facility] [address] [address] [address] Kyree Neal Glucose Ql (U) Negative Normal NEGATIVE [facility] Comment on above: Performed By: #### U AMIC #### [facility] [address] [address] [address] Kyree Neal Hemoglobin Ql (U) Negative Normal NEGATIVE [facility] Comment on above: Performed By: #### U AMIC #### [facility] [address] [address] [address] Kyree Neal Ketones Ql (U) Negative Normal NEGATIVE [facility] Comment on above: Performed By: #### U AMIC #### [facility] [address] [address] [address] Kyree Neal LEUKOCYTES Negative Normal NEGATIVE [facility] Comment on above: Performed By: #### U AMIC #### [facility] [address] [address] [address] Kyree Neal MUCOUS NONE SEEN Normal NONE SEEN Comment on above: Performed By: #### U AMIC #### [facility] [address] [address] [address] Kyree Neal Nitrite Ql (U) Negative Normal NEGATIVE [facility] Comment on above: Performed By: #### U AMIC #### [facility] [address] [address] [address] Kyree Neal pH (U) 5.5 [pH] Normal 5-9 [facility] Comment on above: Performed By: #### U AMIC #### [facility] [address] [address] [address] Kyree Neal RBC NONE SEEN Abnormal 0-2 [facility] Comment on above: Performed By: #### U AMIC #### [facility] [address] [address] [address] Kyree Neal SPEC GRAVITY 1.015 Normal 1.005-<=1. 025 Comment on above: Performed By: #### U AMIC #### [facility] [address] [address] [address] Kyree Neal UA PROTEIN Negative Normal NEGATIVE/ TRACE [facility] Comment on above: Performed By: #### U AMIC #### [facility] [address] [address] [address] Kyree Neal Urobilinogen Qn (U) 0.2 {Herrera'U}/dL Normal 0.2 - 1. 0 Comment on above: Performed By: #### U AMIC #### [facility] [address] [address] [address] Kyree Neal WBC NONE SEEN Normal NONE SEEN [facility] Comment on above: Performed By: #### U AMIC #### [facility] [address] [address] [address] Kyree Neal CRPon 04-25-2022 CRP 0.9 mg/dL Normal <=1.0 Comment on above: Performed By: #### C RP ####[facility] [address] [address]Dr. Kyree Neal SED RATE WESTERGRENon 2021 SED RATE 39 mm/hr Critically high <=30 [facility] Comment on above: Performed By: #### S EDR #### [facility] [address] [address] [address] Kyree Neal Basic Metabolic PanelOrdered By: Reynaldo Trejo on 04-16-2022 Chloride [Moles/Vol] 100 mmol/L 95-114 [facility] [place] Glucose [Mass/Vol] 129 mg/dL 70-100 [facility] Comment on above: ADA recommended [...] Sodium [Moles/Vol] 140 mmol/L 136-146 [facility] Urea nitrogen [Mass/Vol] 27 mg/dL 07-11 [facility] Basic Metabolic Panelon 03-20 Calcium [Mass/Vol] 9.8698435 mg/dL Normal 8.2-10 .2 mg/dL [facility] [employer] Other CO2 [Moles/Vol] 29.19032306 mmol/L Normal 22.0-3 0.0 mmol/L [facility] [employer] Other Creatinine [Mass/Vol] 1.21562594 mg/dL High 0. 44-1.03 mg/dL [facility] [employer] Other Potassium [Moles/Vol] 3.06555233 mmol/L Normal 3 .5-5.1 mmol/L [facility] [employer] Other Basic Metabolic Panel 52 [facility] [employer] Other Creatinine and Glomerular fi ltration rate.predicted panel (S/P/Bld)Ordered By: Reynaldo Trejo on 04-16-2022 Creatinine [Mass/Vol] 1.06 mg/dL 0.44-1.[address] [facility] Estimated glomerular filtrat ion rate (GFR) non- AmericanOrdered By: Reynaldo Trejo on 04-16-2022 GFR/1.73 sq M.predicted among non-blacks MDRD (S/P/Bld) [Vol rate/Area] 52 mL/Min [facility] No Panel InformationOrdered By: Reynaldo Trejo on 04-16-2022 Estimated GFR () > 60 mL/Min [facility] Comment on above: GFR estimated refere nce range: According to KDOQI guidelines, <60 ml/min/1.73m2 is sufficient to diagnose a patient with chronic kidney disease. Pharmacy Creatinine Clearance (Chem N/A [facility] Serum or plasma calcium darrell urement (mass/volume)Ordered By: Reynaldo Trejo on 04-16-2022 Calcium [Mass/Vol] 9.7 mg/dL 8.2-10.2 [facility] Serum or plasma potassium me asurement (moles/volume)Ordered By: Reynaldo Trejo on 04-16-2022 Potassium [Moles/Vol] 3.8 mmol/L 3.5-5.[address] [facility] Serum or plasma total carbon dioxide measurement (moles/volume)Ordered By: Reynaldo Trejo on 04-16-2022 CO2 [Moles/Vol] 29.6 mmol/L 22.0-30.0 [facility] Albumin [Mass/volume] in Ser um or PlasmaOrdered By: Megan Epps on 04-09-2022 Albumin [Mass/Vol] 3.6 g/dL 3.2-5.5 [facility] Basophils Auto (Bld) [#/Vol] Ordered By: Megan Epps on 04-09-2022 Basophils (Bld) [#/Vol] 0.1 10*3/uL 0.0-0.2 [facility] Basophils/100 WBC Auto (Bld) Ordered By: Megan Epps on 04-09-2022 Basophils/100 WBC (Bld) 0.8 % . [facility] Blood hemoglobin measurement (mass/volume)Ordered By: Megan Epps on 04-09-2022 Hemoglobin (Bld) [Mass/Vol] 12.8 g/dL 11.8-15.4 [facility] Blood leukocytes automated c ount (number/volume)Ordered By: Megan Epps on 04-09-2022 WBC (Bld) [#/Vol] 9.5 10*3/uL 4.5-11.0 [facility] CT biopsyOrdered By: Megan Valdivia on 04-09-2022 Transferrin [Mass/Vol] 242 mg/dL 180-380 [facility] Creatinine and Glomerular fi ltration rate.predicted panel (S/P/Bld)Ordered By: Megan Epps on 04-09-2022 Creatinine [Mass/Vol] 1.06 mg/dL 0.44-1.[address] [facility] Eosinophils Auto (Bld) [#/Vo l]Ordered By: Megan Epps on 04-09-2022 Eosinophils (Bld) [#/Vol] 0.5 10*3/uL 0.0-0.45 [facility] Eosinophils/100 WBC Auto (Bl d)Ordered By: Megan Epps on 04-09-2022 Eosinophils/100 WBC (Bld) 5.5 % . [facility] Erythrocyte distribution wid th Auto (RBC) [Ratio]Ordered By: Megan Epps on 04-09-2022 Erythrocyte distribution width (RBC) [Ratio] 14.6 % 11.9-15.3 [facility] Estimated glomerular filtrat ion rate (GFR) non- AmericanOrdered By: Megan Epps on 04-09-2022 GFR/1.73 sq M.predicted among non-blacks MDRD (S/P/Bld) [Vol rate/Area] 52 mL/Min [facility] Ferritin [Mass/volume] in Se rum or PlasmaOrdered By: Megan Epps on 04-09-2022 Ferritin [Mass/Vol] 383.1 ng/mL 11-306.8 [facility] Folate [Mass/volume] in Seru m or PlasmaOrdered By: Megan Epps on 04-09-2022 Folate [Mass/Vol] ng/mL >5.9 [facility] Comment on above: Folate reference ran ge: >5.9 ng/ml The WHO technical consultation on folate and vitamin b12 deficiencies has determined that folate concentrations less than 4 ng/ml are considered deficient. Globulin Calc (S) [Mass/Vol] Ordered By: Megan Epps on 04-09-2022 Globulin (S) [Mass/Vol] 2.6 g/dL [facility] Hematocrit Auto (Bld) [Volum e fraction]Ordered By: Megan Epps on 04-09-2022 Hematocrit (Bld) [Volume fraction] 38.4 % 34.0-46.4 [facility] Iron [Mass/volume] in Serum or PlasmaOrdered By: Megan Epps on 04-09-2022 Iron [Mass/Vol] 41 ug/dL 40-150 [facility] Iron binding capacity [Mass/ volume] in Serum or PlasmaOrdered By: Megan Epps on 04-09-2022 Iron binding capacity [Mass/Vol] 339 ug/dL 255-450 [facility] Iron saturation [Mass Fracti on] in Serum or PlasmaOrdered By: Megan Epps on 04-09-2022 Iron saturation [Mass fraction] 12.0 % 20-50 [facility] Laboratory - Chemistry and C hemistry - challengeOrdered By: Megan Epps on 04-09-2022 Cobalamin (Vitamin B12) [Mass/Vol] 459 pg/mL 180-914 [facility] Laboratory - Hematology and Cell countsOrdered By: Megan Epps on 04-09-2022 Nucleated RBC/100 WBC (Bld) [Ratio] 0.0 % 0-0.5 [facility] Lymphocytes Auto (Bld) [#/Vo l]Ordered By: Megan Epps on 04-09-2022 Lymphocytes (Bld) [#/Vol] 2.1 10*3/uL 1.00-4.8 [facility] Lymphocytes/100 WBC Auto (Bl d)Ordered By: Megan Epps on 04-09-2022 Lymphocytes/100 WBC (Bld) 21.7 % . [facility] MCH Auto (RBC) [Entitic mass ]Ordered By: Megan Epps on 04-09-2022 MCH (RBC) [Entitic mass] 29.1 pg 24.7-34.3 [facility] MCHC Auto (RBC) [Mass/Vol]Or dered By: Megan Epps on 04-09-2022 MCHC (RBC) [Mass/Vol] 33.3 g/dL 32.0-35.[address] [facility] MCV Auto (RBC) [Entitic vol] Ordered By: Megan Epps on 04-09-2022 MCV (RBC) [Entitic vol] 87.3 fL 80-100 [facility] Monocytes Auto (Bld) [#/Vol] Ordered By: Megan Epps on 04-09-2022 Monocytes (Bld) [#/Vol] 0.7 10*3/uL 0.0-0.8 [facility] Monocytes/100 WBC Auto (Bld) Ordered By: Megan Epps on 04-09-2022 Monocytes/100 WBC (Bld) 7.2 % . [facility] Neutrophils Auto (Bld) [#/Vo l]Ordered By: Megan Epps on 04-09-2022 Neutrophils (Bld) [#/Vol] 6.2 10*3/uL 1.8-7.7 [facility] Neutrophils/100 WBC Auto (Bl d)Ordered By: Megan Epps on 04-09-2022 Neutrophils/100 WBC (Bld) 64.8 % . [facility] No Panel InformationOrdered By: Megan Epps on 04-09-2022 Estimated GFR () > 60 mL/Min [facility] Comment on above: GFR estimated refere nce range: According to KDOQI guidelines, <60 ml/min/1.73m2 is sufficient to diagnose a patient with chronic kidney disease. Pharmacy Creatinine Clearance (Chem 65.00 [facility] Platelet mean volume Auto (B ld) [Entitic vol]Ordered By: Megan Epps on 04-09-2022 Platelet mean volume (Bld) [Entitic vol] 8.4 fL 6.3-10.7 [facility] Platelets Auto (Bld) [#/Vol] Ordered By: Megan Epps on 04-09-2022 Platelets (Bld) [#/Vol] 249 10*3/uL 150-450 [facility] Protein [Mass/volume] in Ser um or PlasmaOrdered By: Megan Epps on 04-09-2022 Protein [Mass/Vol] 6.2 g/dL 6.1-7.9 [facility] RBC Auto (Bld) [#/Vol]Ordere d By: Megan Epps on 04-09-2022 RBC (Bld) [#/Vol] 4.40 10*6/uL 3.60-5.00 [facility] Serum or plasma alanine victoria otransferase measurement without P-5'-P (enzymatic activiOrdered By: Megan Epps on 04-09-2022 ALT No additional P-5'-P [Catalytic activity/Vol] 21 U/L 10-60 [facility] Serum or plasma albumin/glob ulin mass ratioOrdered By: Megan Supriya on 04-09-2022 Albumin/Globulin [Mass ratio] 1.4 {ratio} [facility] Serum or plasma alkaline adams sphatase measurement (enzymatic activity/volume)Ordered By: Megan Epps on 04-09-2022 ALP [Catalytic activity/Vol] 62 U/L 32-92 [facility] Serum or plasma aspartate am inotransferase measurement (enzymatic activity/volume)Ordered By: Megan Epps on 04-09-2022 AST [Catalytic activity/Vol] 21 U/L 10-42 [facility] Serum or plasma calcium darrell urement (mass/volume)Ordered By: Megan Epps on 04-09-2022 Calcium [Mass/Vol] 9.2 mg/dL 8.2-10.2 [facility] Serum or plasma chloride jose surement (moles/volume)Ordered By: Megan Epps on 04-09-2022 Chloride [Moles/Vol] 101 mmol/L 95-114 [facility] Serum or plasma glucose darrell urement (mass/volume)Ordered By: Megan Supriya on 04-09-2022 Glucose [Mass/Vol] 111 mg/dL 70-100 [facility] Comment on above: ADA recommended refe rence range Random Glucose Reference Range is dependent on time and content of last meal. Glucose of more than 200 mg/dL in a nonstressed, ambulatory subject supports the diagnosis of Diabetes Mellitus. Serum or plasma methylmalona te measurement (moles/volume)Ordered By: Megan Epps on 04-09-2022 Methylmalonate [Moles/Vol] 291 nmol/L 0-378 [facility] Comment on above: This test was devamadoro ped and its performance characteristics determined by [facility]. It has not been cleared or approved by the Food and Drug Administration. Performed at: [address] [id number] [place] Operator: Alan Christianson MD, Phone: [phone] Serum or plasma potassium me asurement (moles/volume)Ordered By: Megan Epps on 04-09-2022 Potassium [Moles/Vol] 3.6 mmol/L 3.5-5.[address] [facility] Serum or plasma sodium measu rement (moles/volume)Ordered By: Megan Supriya on 04-09-2022 Sodium [Moles/Vol] 140 mmol/L 136-146 [facility] Serum or plasma total biliru bin measurement (mass/volume)Ordered By: Megan Supriya on 04-09-2022 Bilirubin [Mass/Vol] 0.6 mg/dL 0.3-1.2 [facility] Serum or plasma total carbon dioxide measurement (moles/volume)Ordered By: Megan Supriya on 04-09-2022 CO2 [Moles/Vol] 26.6 mmol/L 22.0-30.0 [facility] Serum or plasma urea nitroge n measurement (mass/volume)Ordered By: Megan Epps on 04-09-2022 Urea nitrogen [Mass/Vol] 23 mg/dL 9-23 [facility] PTH INTACTon 04-02-2022 PTH, Intact 42 pg/mL Normal 15-65 Comment on above: Performed By: #### P THINT ####[facility] [id number] [address]Dr. Kyree Neal HEMOGRAM AND PLATELon 2021 Hematocrit (Bld) [Volume fraction] 39.1 % Normal 36.0-48.0 Comment on above: Performed By: #### H H #### [facility] [address] [address] [address] Kyree Neal Hemoglobin (Bld) [Mass/Vol] 12.4 g/dL Normal 12.0-16.0 [facility] Comment on above: Performed By: #### H H #### [facility] [address] [address] [address] Kyree Neal MCH (RBC) [Entitic mass] 28.7 pg Normal 26.7-34.0 Comment on above: Performed By: #### H H #### [facility] [address] [address] [address] Kyree Neal MCHC (RBC) [Mass/Vol] 31.7 g/dL Normal 29.9-35.2 Comment on above: Performed By: #### H H #### [facility] [address] [place] [address] Dr. Kyree Neal MCV (RBC) [Entitic vol] 90.5 fL Normal 81.0-99.0 Comment on above: Performed By: #### H H #### [facility] [address] [place] [address] Dr. Kyree Neal PLT 242 103/ul Normal 150-450 Comment on above: Performed By: #### H H #### [facility] [address] [place] [address] Dr. Kyree Neal RBC 4.32 106/ul Normal 4.20-5.40 Comment on above: Performed By: #### H H #### [facility] [address] [place] [address] Dr. Kyree Neal WBC 8.6 103/ul Normal 4.0-11.0 Comment on above: Performed By: #### H H #### [facility] [address] [place] [address] Dr. Kyree Neal PHOSPHORUSon 04-01-2022 Phosphate [Mass/Vol] 2.7 mg/dL Normal 2.6-4.7 Comment on above: Performed By: #### P HOS, BMP #### [facility] [address] [place] [address] Dr. Kyree Neal PROF CHEM 8 (BAS METB)on Anion gap [Moles/Vol] 11.0 mmol/L Normal [facility] Comment on above: Performed By: #### P HOS, BMP #### [facility] [address] [place] [address] Dr. Kyree Neal Calcium [Mass/Vol] 9.0 mg/dL Normal 8.5-10.1 [facility] Comment on above: Performed By: #### P HOS, BMP #### [facility] [address] [address] [address] Kyree Neal Chloride [Moles/Vol] 104 mmol/L Normal 98-107 [facility] Comment on above: Performed By: #### P HOS, BMP #### [facility] [address] [address] [address] Kyree Neal CO2 [Moles/Vol] 30.6 mmol/L Normal 21.0-32.0 [facility] Comment on above: Performed By: #### P HOS, BMP #### [facility] [address] [address] [address] Kyree Neal Creatinine [Mass/Vol] 1.10 mg/dL Critically high 0.55-1.02 Comment on above: Performed By: #### P HOS, BMP #### [facility] [address] [address] [address] Kyree Neal EGFR-AF [facility] =60 Normal >=60 [facility] Comment on above: Performed By: #### P HOS, BMP #### [facility] [address] [address] [address] Kyree Neal EGFR-NON AF [facility] 50 mL/min/1.73m2 Critically low >=60 Comment on above: Performed By: #### P HOS, BMP #### [facility] [address] [address] [address] Kyree Neal Glucose [Mass/Vol] 93 mg/dL Normal 74-106 [facility] Comment on above: Performed By: #### P HOS, BMP #### [facility] [address] [address] [address] Kyree Neal Potassium [Moles/Vol] 3.6 mmol/L Normal 3.5-5.1 [facility] Comment on above: Performed By: #### P HOS, BMP #### [facility] [address] [address] [address] Kyree Neal Sodium [Moles/Vol] 142 mmol/L Normal 136-145 [facility] Comment on above: Performed By: #### P HOS, BMP #### [facility] [address] [place] [address] Dr. Kyree Neal Urea nitrogen [Mass/Vol] 20.0 mg/dL Critically high 7.0-18.0 Comment on above: Performed By: #### P HOS, BMP #### [facility] [address] [place] [address] Dr. Kyree Neal Urea nitrogen/Creatinine [Mass ratio] 18.2 mg/mg Normal Comment on above: Performed By: #### P HOS, BMP #### [facility] [address] [place] [address] Dr. Kyree Neal VITAMIN D 25 OHon 04-01-2022 VIT D 25-OH 45.4 ng/mL Normal Comment on above: Performed By: #### S EDR #### [facility] [address] [place] [address] Dr. Kyree Neal VIT D RANGES SEE BELOW Normal Comment on above: Result Comment: <20 ng/mL Vit D deficient 20 - <30 ng/mL Vit D insufficient 30 - 100 ng/mL Vit D sufficient >100 ng/mL Potential Toxicity Performed By: #### S EDR #### [facility] [address] [place] [address] Dr. Kyree Neal A1C HEMOGLOBINon 02-05-2022 HbA1c (Bld) [Mass fraction] 6.1 % [employer] Other HbA1c (Bld) [Mass fraction]o n 02-05-2022 A1C HEMOGLOBIN [facility] [employer] Other Office Visit (Cardiology)on 12-18-2021 Follow-up visit [...] Hives; It (more content not included)... Normal [employer] A1C HEMOGLOBINon 11-05-2021 HbA1c (Bld) [Mass fraction] 5.9 % [employer] Other HbA1c (Bld) [Mass fraction]o n 11-05-2021 A1C HEMOGLOBIN [employer] Other Office Visit (Cardiology)on 10-01-2021 Follow-up visit Diagnoses/Problems Assessed Hypotension (458.9) (I95.9) quiescent on midodrine Edema (782.3) (R60.9) For the most part seems chronic No offending medications Intolerant to compression stockings Diet-controlled diabetes mellitus (250.00) (E11.9) CKD (chronic kidney disease), stage III (585.3) (N18.30) Follows routinely [facility] Nephrology - manage diuretic Morbid obesity with [...] HCl - (more content not included)... Normal [employer] A1C HEMOGLOBINon 07-25-2021 HbA1c (Bld) [Mass fraction] 6.0 % [employer] Other HbA1c (Bld) [Mass fraction]o n 07-25-2021 A1C HEMOGLOBIN [employer] Other A1C HEMOGLOBINon 07-11-2021 HbA1c (Bld) [Mass fraction] 6.0 % [employer] Other HbA1c (Bld) [Mass fraction]o n 07-11-2021 A1C HEMOGLOBIN [employer] Other MRI L-Ext Joint w/o Contrast RTon [...] intact.Limited examination due to the right knee arthroplasty.[employer] thanks you for the opportunity to care for your patient. Workstation ID: [id number] - [id number] FINAL REPORT Dictated By: Lance Elise MD 08/03/2018 14:10Assigned Physician: Lance Elise MD and Electronically Signed By: Lance Elise MD 08/03/2018 14:12Transcribed by: BARRON 08/03/2018 14:10Technologist: LONNIE Perez [facility] CNOVon 05-27-2018 CNOV Office Visit (CARDFT) MILLIE GRAHAM ([id number]) 1955 FDate Time Provider Department05/27/18 12:30 PM ITALO ANN During your visit today, we recorded the following information about you: Pulse Respiration Blood pressure Weight 64/minute 16/minute 143/68 120.2 kg Height 1.6 Cece Ann MD 05/27/2018 1:19 PM [facility] Department of Cardiovascular MedicineOUTPATIENT VISIT DATE 05/27/18OUTPATIENT VISIT TYPEESTABLISHEDPRIMARY CARE PHYSICIAN:Peter Sosa, DO[address] LisandroFormerly [facility] [address]Aoumh: [phone]: [phone] COMPLAINT:Patient presents with:Follow UpHISTORY OF PRESENT ILLNESS:Renuka Graham is a 61 year old female with a complex past medical history ofchronic diastolic heart failure, mild nonobstructive coronary artery disease,possible secundum type atrial septal defect, essential hypertension, pulmonaryhypertension, obstructive sleep apnea intolerant of face mask, gastroesophagealreflux disease, fibromyalgia and either reactive or restrictive lung disease.06/30/2017The patient presents today as a new consult for weight gain and swelling. Aaron previously been evaluated and under the care of Dr. Schilling of [facility]. Danika had multiple procedures performed which are [...] year. She does statethat she was taking rryn-iqi-bulajzu diet pills until recently. They were notworking. [...] had multiple invasive evaluations. Her son states thatshagufta truly is not active at home at all. She may sit in her chair for [id number] hours every day. She states that it's [...] (coronary artery disease)- CHF (congestive heart failure) ([facility])- DM (diabetes mellitus) ([facility])- Fibromyalgia- GERD (gastroesophageal reflux disease)- HTN (hypertension)- OA (osteoarthritis) of knee- JEREMY (obstructive sleep apnea)- Pulmonary HTN ([facility])- Restrictive lung disease- Vitamin D deficiencyPAST [...] a 2-D echocardiogram performed at the [facility] normal left ventricular systolic function with an ejection fraction of60%. There was no significant valvular disease identified. There was nocomment on diastolic function.02/24/2017 - a 2-D echocardiogram performed at the [facility] low normal to mildly reduced left ventricular systolic function withan ejection fraction of 45-50%. There was minimal concentric left ventricularhypertrophy present. There was evidence of grade 1 diastolic dysfunction.There was mild mitral regurgitation. No estimate a right ventricular systolicpressure was possible on this study.Stress Evaluations:02/26/2016 - a Lexiscan nuclear stress evaluation at the [facility] a left ventricular ejection fraction of 50% with abnormal septal wallmotion. There was a small defect involving the inferior oh apical wall whichwas fixed. This was felt to likely represent artifact. There was no otherevidence of Lexiscan stress-induced ischemia.02/24/2017 - [facility] function with an ejectionfraction of 48%. There was a moderate sized anterior septal defect which waspartially reversible noted. This was read as suggestive of possiblestress-induced ischemia.Cardiac Catheterizations: 004 - [facility]. There was moderately decreased leftventricular systolic function noted with an ejection fraction of 30%.Moderately elevated right heart pressures and a normal cardiac index werenoted. The patient was continued on Demadex, Diovan, around oh lactone, Coreg3.125 mg twice a day.06/12/2005 - a right and left heart catheterization was performed at [facility] revealing nonobstructive coronary artery disease,left ventricular ejection fraction of 50%, moderate pulmonary hypertension,severely elevated left ventricular end-diastolic pressure, normal cardiacoutput and normal cardiac index. The patient was started on Lasix 40 mg twicea day.02/14/2008 - a right and left heart catheterization was performed at [facility] revealing mild 3 vessel coronary arterydisease, mildly reduced left ventricular systolic function (no ejectionfraction noted on the report), mild mitral regurgitation, mildly elevated leftventricular end-diastolic pressure, mild pulmonary hypertension and a normalcardiac index. No changes were made to the medical regimen.02/28/2013 - a right and left heart catheterization performed at [facility] reveals mild 3 vessel coronary artery disease, mild pulmonaryhypertension, preserved cardiac index and no evidence of cardiac shunt. Thisstudy was performed due to an abnormal stress test and a suspected patentforamen ovale versus ASD on echocardiogram. Medical therapy was recommendedbut not detailed in the report.03/05/2017 - a right and left heart catheterization was performed at [facility] revealing nonobstructive coronary artery disease, mildlyreduced [...] provided to the requesting physician by [facility] or to the requesting physician via U.S. Mail.This document was generated utilizing [employer] dictation. I have reviewed andverified that the contents of the document are accurate with the exception ofminor grammatical, spelling and punctuation errors.CONTACT INFORMATION:Thank you for allowing us to participate in the care of this very pleasantpatient. Please free to contact us if we can be of any further assistance.Italo Ann MD, [facility] and [facility]le DoddProv[facility] St[facility] Peter Hospitalment of Cardiovascular MedicineLittle [facility] Institute[address] [address]Syvtij: [phone] Referring Provider: PETER SOSA [[id number]]Allergies As of Date: 05/27/2018 Noted Allergy ReactionLATEX [...] Status:Closed by LUC ANN MD on 05/27/18 [facility] PROGRESSon 05-27-2018 Protein mass conc HNO ID: [id number]: Italo Valladares HersheyService: (none)Author Type: PhysicianType: Progress NotesFiled: 05/27/2018 1:19 PMNote Text:[facility] Department of Cardiovascular MedicineOUTPATIENT VISIT DATE 05/27/18OUTPATIENT VISIT TYPEESTABLISHEDPRIMARY CARE PHYSICIAN:Peter Sosa, DO[address] [place] [address]Vuawh: [phone]: [phone] COMPLAINT:Patient presents with:Follow UpHISTORY OF PRESENT ILLNESS:Renuka Graham is a 61 year old female [...] and under the care of Dr. Schilling [place] [facility]. She has had multiple procedures performed which [...] year. She does state that shewas taking kcgg-jce-vuohojc diet pills until recently. They were notworking. 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 Shaguftaalsliyah needs to make changes in her diet. [...] (coronary artery disease)- CHF (congestive heart failure) ([facility])- DM (diabetes mellitus) ([facility])- Fibromyalgia- GERD (gastroesophageal reflux disease)- HTN (hypertension)- OA (osteoarthritis) of knee- JEREMY (obstructive sleep apnea)- Pulmonary HTN ([facility])- Restrictive lung disease- Vitamin D deficiencyPAST [...] - [facility] with an ejectionfraction of 60%. There was no significant valvular disease identified.There was no comment on diastolic function.02/24/2017 - [facility] normal to mildly reduced left ventricular systolic functionwith an ejection fraction of 45-50%. There was minimal concentric leftventricular hypertrophy present. There was evidence of grade 1 diastolicdysfunction. There was mild mitral regurgitation. No estimate a rightventricular systolic pressure was possible on this study.Stress Evaluations:02/26/2016 - a Lexiscan nuclear stress evaluation at the [facility] revealed a left ventricular ejection fraction of 50% with abnormalseptal wall motion. There was a small defect involving the inferior ohapical wall which was fixed. This was felt to likely represent artifact.There was no other evidence of Lexiscan stress-induced ischemia.02/24/2017 - a Lexiscan nuclear stress evaluation at the [facility] revealed mildly diminished left ventricular systolic function withan ejection fraction of 48%. There was a moderate sized anterior septaldefect which was partially reversible noted. This was read as suggestiveof possible stress-induced ischemia.Cardiac Catheterizations: 004 - a cardiac catheterization performed at the [facility] revealed normal coronary arteries. There was moderately decreasedleft ventricular systolic function noted with an ejection fraction of 30%. Moderately elevated right heart pressures and a normal cardiac index werenoted. The patient was continued on Demadex, Diovan, around oh lactone,Coreg 3.125 mg twice a day.06/12/2005 - a right and left heart catheterization was performed at [facility] revealing nonobstructive coronary arterydisease, left ventricular ejection fraction of 50%, moderate pulmonaryhypertension, severely elevated left ventricular end-diastolic pressure,normal cardiac output and normal cardiac index. The patient was startedon Lasix 40 mg twice a day.02/14/2008 - a right and left heart catheterization was performed at [facility] revealing mild 3 vessel coronaryartery disease, mildly reduced left ventricular systolic function (noejection fraction noted on the report), mild mitral regurgitation, mildlyelevated left ventricular end-diastolic pressure, mild pulmonaryhypertension and a normal cardiac index. No changes were made to themedical regimen.02/28/2013 - a right and left heart catheterization performed at [facility] reveals mild 3 vessel coronary artery disease, mildpulmonary hypertension, preserved cardiac index and no evidence of cardiacshunt. This study was performed due to an abnormal stress test and asuspected patent foramen ovale versus ASD on echocardiogram. Medicaltherapy was recommended but not detailed in the report.03/05/2017 - a right and left heart catheterization was performed at [facility] revealing nonobstructive coronary artery disease,mildly reduced [...] provided to the requesting physician by [facility] or to the requesting physician via U.S. Mail.This document was generated utilizing [employer]. I have reviewedand verified that the contents of the document are accurate with theexception of minor grammatical, spelling and punctuation errors.CONTACT INFORMATION:Thank you for allowing us to participate in the care of this very pleasantpatient. Please free to contact us if we can be of any furtherassistance.Maria A Ann MD, [facility] and Mechelle DoddProvidence St. Peter Hospitalment of Cardiovascular MedicineOhiohealth Grant Medical Centerrt and V[facility] Institute[address], [place] [address]Rjfohx: [phone] [facility] CNOVon 04-08-2018 CNOV Office Visit (CARDFT) GLADYSMILLIE MARK ANTHONY ([id number]) 1955 [facility] Time Provider Department04/08/18 12:30 PM ITALO ANN During your visit today, we recorded the following information about you: Pulse Respiration Blood pressure Weight 75/minute 18/minute 163/70 117 kg Height 1.6 Cece Ann MD 04/08/2018 12:59 PM [facility] and Mechelle Dodd Department of Cardiovascular MedicineOUTPATIENT VISIT DATE 04/08/18OUTPATIENT VISIT TYPEESTABLISHEDPRIMARY CARE PHYSICIAN:Peter Sosa DO[address] [facility] [address]Zbewm: [phone]: [phone] COMPLAINT:Patient presents with:Follow UpHISTORY OF PRESENT ILLNESS:Renuka Graham is a 61 year old female with a complex past medical history ofchronic diastolic heart failure, mild nonobstructive coronary artery disease,possible secundum type atrial septal defect, essential hypertension, pulmonaryhypertension, obstructive sleep apnea intolerant of face mask, gastroesophagealreflux disease, fibromyalgia and either reactive or restrictive lung disease.06/30/2017The patient presents today as a new consult for weight gain and swelling. Aaron previously been evaluated and under the care of Dr. Schilling of [facility]. Danika had multiple procedures performed which are [...] year. She does statethat she was taking afgd-luf-iapqrgr diet pills until recently. They were notworking. The patient has chronic complaints of dyspnea and dyspnea onexertion. She has been treated with lisinopril for her blood pressure. TheLasix was used to try to decrease her edema but was not successful. Thepatient and her son seem [facility] By my review of the [...] had multiple invasive evaluations. Her son states iris truly is not active at home at all. She may sit in her chair for [id number] hours every day. She states that it's [...] (coronary artery disease)- CHF (congestive heart failure) ([facility])- DM (diabetes mellitus) ([facility])- Fibromyalgia- GERD (gastroesophageal reflux disease)- HTN [...] - [facility] with an ejection fraction of60%. There was no significant valvular disease identified. There was nocomment on diastolic function.02/24/2017 - [facility] to mildly reduced left ventricular systolic function withan ejection fraction of 45-50%. There was minimal concentric left ventricularhypertrophy present. There was evidence of grade 1 diastolic dysfunction.There was mild mitral regurgitation. No estimate a right ventricular systolicpressure was possible on this study.Stress Evaluations:02/26/2016 - [facility] fraction of 50% with abnormal septal wallmotion. There was a small defect involving the inferior oh apical wall whichwas fixed. This was felt to likely represent artifact. There was no otherevidence of Lexiscan stress-induced ischemia.02/24/2017 - [facility]an [facility] systolic function with an ejectionfraction of 48%. There was a moderate sized anterior septal defect which waspartially reversible noted. This was read as suggestive of possiblestress-induced ischemia.Cardiac Catheterizations: 004 - [facility]. There was moderately decreased leftventricular systolic function noted with an ejection fraction of 30%.Moderately elevated right heart pressures and a normal cardiac index werenoted. The patient was continued on Demadex, Diovan, around oh lactone, Coreg3.125 mg twice a day.06/12/2005 - a right and left heart catheterization was performed at [facility] revealing nonobstructive coronary artery disease,left ventricular ejection fraction of 50%, moderate pulmonary hypertension,severely elevated left ventricular end-diastolic pressure, normal cardiacoutput and normal cardiac index. The patient was started on Lasix 40 mg twicea day.02/14/2008 - a right and left heart catheterization was performed at [facility] revealing mild 3 vessel coronary arterydisease, mildly reduced left ventricular systolic function (no ejectionfraction noted on the report), mild mitral regurgitation, mildly elevated leftventricular end-diastolic pressure, mild pulmonary hypertension and a normalcardiac index. No changes were made to the medical regimen.02/28/2013 - a right and left heart catheterization performed at [facility] reveals mild 3 vessel coronary artery disease, mild pulmonaryhypertension, preserved cardiac index and no evidence of cardiac shunt. Thisstudy was performed due to an abnormal stress test and a suspected patentforamen ovale versus ASD on echocardiogram. Medical therapy was recommendedbut not detailed in the report.03/05/2017 - a right and left heart catheterization was performed at [facility] revealing nonobstructive coronary artery disease, mildlyreduced [...] help her symptoms. I have suggested the BeauCoo diet. I havealso discussed with her a [...] provided to the requesting physician by way [facility] or to the requesting physician via U.S. Mail.This document was generated utilizing [employer] dictation. I have reviewed andverified that the contents of the document are accurate with the exception ofminor grammatical, spelling and punctuation errors.CONTACT INFORMATION:Thank you for allowing us to participate in the care of this very pleasantpatient. Please free to contact us if we can be of any further assistance.Italo Ann MD, FACCRsaint elizabeth edgewood and Mechelle DoddProvidence St. Peter Hospitalment of Cardiovascular MedicineOhiohealth Grant Medical Centerrt and Vascular InstituteSamantha Ville [address] [place], [place] [address]Bbrbrx: [phone] Referring Provider: PETER SOSA [[id number]]Allergies As of Date: 04/08/2018 Noted Allergy ReactionLATEX [...] 3 BASIC METABOLIC PNL [SQBMP] Order #: [id number] FUTUREPrescriptions as of 04/08/2018 Sig: LISINOPRIL 40 [...] by LUC ANN MD on 04/08/18 [facility] PROGRESSon 04-08-2018 Protein mass conc HNO ID: [id number]: Italo Montezervice: (none)Author Type: PhysicianType: Progress NotesFiled: 04/08/2018 12:59 PMNote Text:Heart and Vascular InstituteTroy and [facility] Department of Cardiovascular MedicineOUTPATIENT VISIT DATE 04/08/18OUTPATIENT VISIT TYPEESTABLISHEDPRIMARY CARE PHYSICIAN:Peter Sosa DO[address] [place] [address]Vhbyg: [phone]: [phone] COMPLAINT:Patient presents with:Follow UpHISTORY OF PRESENT ILLNESS:Renuka Graham is a 61 year old female [...] and under the care of Dr. Schilling [facility]. She has had multiple procedures performed which [...] year. She does state that shewas taking mfvr-kzs-egfwvdd diet pills until recently. They were notworking. 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 Shaguftaalsliyah needs to make changes in her diet. [...] (coronary artery disease)- CHF (congestive heart failure) ([facility])- DM (diabetes mellitus) ([facility])- Fibromyalgia- GERD (gastroesophageal reflux disease)- HTN [...] - [facility] function with an ejectionfraction of 60%. There was no significant valvular disease identified.There was no comment on diastolic function.02/24/2017 - [facility] normal to mildly reduced left ventricular systolic functionwith an ejection fraction of 45-50%. There was minimal concentric leftventricular hypertrophy present. There was evidence of grade 1 diastolicdysfunction. There was mild mitral regurgitation. No estimate a rightventricular systolic pressure was possible on this study.Stress Evaluations:02/26/2016 - a Lexiscan nuclear stress evaluation at the [facility] revealed a left ventricular ejection fraction of 50% with abnormalseptal wall motion. There was a small defect involving the inferior ohapical wall which was fixed. This was felt to likely represent artifact.There was no other evidence of Lexiscan stress-induced ischemia.02/24/2017 - a Lexiscan nuclear stress evaluation at the [facility] revealed mildly diminished left ventricular systolic function withan ejection fraction of 48%. There was a moderate sized anterior septaldefect which was partially reversible noted. This was read as suggestiveof possible stress-induced ischemia.Cardiac Catheterizations: 004 - a cardiac catheterization performed at the [facility] revealed normal coronary arteries. There was moderately decreasedleft ventricular systolic function noted with an ejection fraction of 30%. Moderately elevated right heart pressures and a normal cardiac index werenoted. The patient was continued on Demadex, Diovan, around oh lactone,Coreg 3.125 mg twice a day.06/12/2005 - a right and left heart catheterization was performed at [facility] revealing nonobstructive coronary arterydisease, left ventricular ejection fraction of 50%, moderate pulmonaryhypertension, severely elevated left ventricular end-diastolic pressure,normal cardiac output and normal cardiac index. The patient was startedon Lasix 40 mg twice a day.02/14/2008 - a right and left heart catheterization was performed at [facility] revealing mild 3 vessel coronaryartery disease, mildly reduced left ventricular systolic function (noejection fraction noted on the report), mild mitral regurgitation, mildlyelevated left ventricular end-diastolic pressure, mild pulmonaryhypertension and a normal cardiac index. No changes were made to [facility] regimen.02/28/2013 - a right and left heart catheterization performed at [facility] reveals mild 3 vessel coronary artery disease, mildpulmonary hypertension, preserved cardiac index and no evidence of cardiacshunt. This study was performed due to an abnormal stress test and asuspected patent foramen ovale versus ASD on echocardiogram. Medicaltherapy was recommended but not detailed in the report.03/05/2017 - a right and left heart catheterization was performed at [facility] revealing nonobstructive coronary artery disease,mildly reduced [...] help her symptoms. I have suggested the BeauCoo diet. Keira also discussed with her a [...] provided to the requesting physician by way [facility] or to the requesting physician via U.S. Mail.This document was generated utilizing Aerop[employer] dictation. I have reviewedand verified that the contents of the document are accurate with theexception of minor grammatical, spelling and punctuation errors.CONTACT INFORMATION:Thank you for allowing us to participate in the care of this very pleasantpatient. Please free to contact us if we can be of any furtherassistance.Maria A Ann MD, [facility] and Mechelle DoddProvidence St. Peter Hospitalment of Cardiovascular MedicineOhiohealth Grant Medical Centerrt and Vascular Institute[address] [address]Pleuny: [phone] [facility] CNOVon 01-04-2018 CNOV Office Visit (CARDFT) MILLIE GRAHAM ([id number]) 1955 [facility] Time Provider Department01/04/18 12:30 PM ITALO ANN During your visit today, we recorded the following information about you: Pulse Respiration Blood pressure Weight 57/minute 18/minute 165/72 117.9 kg Height 1.6 Cece Ann MD 01/04/2018 12:56 PM [facility] and Mechelle Dodd Department of Cardiovascular MedicineOUTPATIENT VISIT DATE 01/04/18OUTPATIENT VISIT TYPEESTABLISHEDPRIMARY CARE PHYSICIAN:Peter Sosa DO[address] [place] [address]Ewred: [phone]: [phone] COMPLAINT:Patient presents with:Follow UpHISTORY OF PRESENT ILLNESS:Renuka Graham is a 61 year old female with a complex past medical history ofchronic diastolic heart failure, mild nonobstructive coronary artery disease,possible secundum type atrial septal defect, essential hypertension, pulmonaryhypertension, obstructive sleep apnea intolerant of face mask, gastroesophagealreflux disease, fibromyalgia and either reactive or restrictive lung disease.06/30/2017The patient presents today as a new consult for weight gain and swelling. Femid previously been evaluated and under the care of Dr. Schilling of [facility]. Danika had multiple procedures performed which are [...] year. She does statethat she was taking yidd-hqe-rvfzqhe diet pills until recently. They were notworking. [...] had multiple invasive evaluations. Her son states thatshagufta truly is not active at home at all. She may sit in her chair for uemuacp47-65 hours every day. She states that it's [...] 117.9 kg (260lb) SpO2 100% BMI 46.06 kg/n6Jgddtsc: Well appearing, in no acute distress.Eyes: Conjunctiva [...] a 2-D echocardiogram performed at the [facility] normal left ventricular systolic function with an ejection fraction of60%. There was no significant valvular disease identified. There was nocomment on diastolic function.02/24/2017 - a 2-D echocardiogram performed at the [facility] low normal to mildly reduced left ventricular systolic function withan ejection fraction of 45-50%. There was minimal concentric left ventricularhypertrophy present. There was evidence of grade 1 diastolic dysfunction.There was mild mitral regurgitation. No estimate a right ventricular systolicpressure was possible on this study.Stress Evaluations:02/26/2016 - [facility] Lexiscan [facility] ejection fraction of 50% with abnormal septal wallmotion. There was a small defect involving the inferior oh apical wall whichwas fixed. This was felt to likely represent artifact. There was no otherevidence of Lexiscan stress-induced ischemia.02/24/2017 - a Lexiscan [facility] diminished left ventricular systolic function with an ejectionfraction of 48%. There was a moderate sized anterior septal defect which waspartially reversible noted. This was read as suggestive of possiblestress-induced ischemia.Cardiac Catheterizations: 004 - [facility]. There was moderately decreased leftventricular systolic function noted with an ejection fraction of 30%.Moderately elevated right heart pressures and a normal cardiac index werenoted. The patient was continued on Demadex, Diovan, around oh lactone, Coreg3.125 mg twice a day.06/12/2005 - a right and left heart catheterization was performed at [facility] revealing nonobstructive coronary artery disease,left ventricular ejection fraction of 50%, moderate pulmonary hypertension,severely elevated left ventricular end-diastolic pressure, normal cardiacoutput and normal cardiac index. The patient was started on Lasix 40 mg twicea day.02/14/2008 - a right and left heart catheterization was performed at [facility] revealing mild 3 vessel coronary arterydisease, mildly reduced left ventricular systolic function (no ejectionfraction noted on the report), mild mitral regurgitation, mildly elevated leftventricular end-diastolic pressure, mild pulmonary hypertension and a normalcardiac index. No changes were made to the medical regimen.02/28/2013 - a right and left heart catheterization performed at [facility] reveals mild 3 vessel coronary artery disease, mild pulmonaryhypertension, preserved cardiac index and no evidence of cardiac shunt. Thisstudy was performed due to an abnormal stress test and a suspected patentforamen ovale versus ASD on echocardiogram. Medical therapy was recommendedbut not detailed in the report.03/05/2017 - [facility] non[facility]structive coronary artery disease, mildlyreduced left [...] therapy, gastroesophageal reflux disease and obesity.No significant price changer the past 6 months. Patient is [...] help her symptoms. I have suggested the BeauCoo diet. I havealso discussed with her a [...] provided to the requesting physician by [facility] or to the requesting physician via U.S. Mail.This document was generated utilizing Aeropost[employer]on dictation. I have reviewed andverified that the contents of the document are accurate with the exception ofminor grammatical, spelling and punctuation errors.CONTACT INFORMATION:Thank you for allowing us to participate in the care of this very pleasantpatient. Please free to contact us if we can be of any further assistance.Italo Ann MD, FACCRobert and Mechelle DoddFlpartment of Cardiovascular MedicineOhiohealth Grant Medical Centerrt and Vascular InstituteSumma Health[address], [place] [address]Uhozbn: [phone] Referring Provider: PETER SOSA [[id number]]Allergies As of Date: 01/04/2018 Noted Allergy ReactionLATEX [...] Take by mouth. Disc: Erroneous entryEncounter Number: [id number] Status:Closed by LUC ANN MD on 01/04/18 [facility] PROGRESSon 01-04-2018 Protein mass conc HNO ID: [id number]: Itlao Montezervice: (none)Author Type: PhysicianType: Progress NotesFiled: 01/04/2018 12:56 PMNote Text:[facility] Department of Cardiovascular MedicineOUTPATIENT VISIT DATE 01/04/18OUTPATIENT VISIT TYPEESTABLADVENTHEALTHPRLEVINE CHILDREN'S HOSPITALRY CARE PHYSICIAN:Peter Sosa DO[address] [address]Uqieb: [phone]: [phone] COMPLAINT:Patient presents with:Follow UpHISTORY OF PRESENT ILLNESS:Renuka Graham is a 61 year old female [...] and under the care of Dr. Schilling [facility]. She has had multiple procedures performed which [...] year. She does state that shewas taking gqzp-gdv-lblszbk diet pills until recently. They were notworking. 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 Shaguftaalso needs to make changes in her diet. The patient does complain of asensation of her heartbeat in her back that radiates around to her chestat times. This does not cause any syncopal or near syncopal episodes. Itis a vague sensation.PAST MEDICAL HISTORYDiagnosis Date- Anxiety- ASD (atrial septal defect)- Asthma- CAD (coronary artery disease)- CHF (congestive heart failure) ([facility])- DM (diabetes mellitus) (HCC)- Fibromyalgia- GERD (gastroesophageal [...] 117.9 kg (260lb) SpO2 100% BMI 46.06 kg/a0Djfzjai: Well appearing, in no acute distress.Eyes: Conjunctiva [...] - [facility] with an ejectionfraction of 60%. There was no significant valvular disease identified.There was no comment on diastolic function.02/24/2017 - [facility] normal to mildly reduced left ventricular systolic functionwith an ejection fraction of 45-50%. There was minimal concentric leftventricular hypertrophy present. There was evidence of grade 1 diastolicdysfunction. There was mild mitral regurgitation. No estimate a rightventricular systolic pressure was possible on this study.Stress Evaluations:02/26/2016 - a Lexiscan nuclear stress evaluation at the [facility] revealed a left ventricular ejection fraction of 50% with abnormalseptal wall motion. There was a small defect involving the inferior ohapical wall which was fixed. This was felt to likely represent artifact.There was no other evidence of Lexiscan stress-induced ischemia.02/24/2017 - a Lexiscan nuclear stress evaluation at the [facility] revealed mildly diminished left ventricular systolic function withan ejection fraction of 48%. There was a moderate sized anterior septaldefect which was partially reversible noted. This was read as suggestiveof possible stress-induced ischemia.Cardiac Catheterizations: 004 - a cardiac catheterization performed at the [facility] revealed normal coronary arteries. There was moderately decreasedleft ventricular systolic function noted with an ejection fraction of 30%. Moderately elevated right heart pressures and a normal cardiac index werenoted. The patient was continued on Demadex, Diovan, around oh lactone,Coreg 3.125 mg twice a day.06/12/2005 - a right and left heart catheterization was performed at [facility] revealing nonobstructive coronary arterydisease, left ventricular ejection fraction of 50%, moderate pulmonaryhypertension, severely elevated left ventricular end-diastolic pressure,normal cardiac output and normal cardiac index. The patient was startedon Lasix 40 mg twice a day.02/14/2008 - a right and left heart catheterization was performed at [facility] revealing mild 3 vessel coronaryartery disease, mildly reduced left ventricular systolic function (noejection fraction noted on the report), mild mitral regurgitation, mildlyelevated left ventricular end-diastolic pressure, mild pulmonaryhypertension and a normal cardiac index. No changes were made to themedical regimen.02/28/2013 - a right and left heart catheterization performed at [facility] reveals mild 3 vessel coronary artery disease, mildpulmonary hypertension, preserved cardiac index and no evidence of cardiacshunt. This study was performed due to an abnormal stress test and asuspected patent foramen ovale versus ASD on echocardiogram. Medicaltherapy was recommended but not detailed in the report.03/05/2017 - a right and left heart catheterization was performed at [facility] revealing nonobstructive coronary artery disease,mildly reduced [...] therapy, gastroesophagealreflux disease and obesity. No significant price changer the past 6 months. Patient is [...] help her symptoms. I have suggested the BeauCoo diet. Anasera also discussed with her a pre-diabetic diet.Regular [...] provided to the requesting physician by [facility] or to the requesting physician via U.S. Mail.This document was generated utilizing [employer] dictation. I have reviewedand verified that the contents of the document are accurate with theexception of minor grammatical, spelling and punctuation errors.CONTACT INFORMATION:Thank you for allowing us to participate in the care of this very pleasantpatient. Please free to contact us if we can be of any furtherassistance.Maria A Ann MD, FACCRobert and Mechelle Manciapartment of Cardiovascular MedicineOhiohealth Grant Medical Centerrt and Vascular Institute[address], [place] [address]Evicxp: [phone] Normal [facility] C-Reactive Proteinon 018 CRP mass conc 1.1 mg/dL High <1.0 [facility] Comment on above: Performed By: #### 1 988-5 ####[address] CBC with Differentialon 0 Basophils Auto #/vol (Bld) 0.10 thou/mcL Normal 0.00-0.20 [facility] Comment on above: Performed By: #### 6 9742-5 ####[address]#### 71555-4 ####[address] Basophils/100 WBC Auto (Bld) 0.9 % Normal 0.0-2.0 [facility] Comment on above: Performed By: #### 6 9742-5 ####[address]#### [address]-6 ####[address] Eosinophils Auto #/vol (Bld) 0.20 thou/mcL Normal 0.00-0.70 [facility] Comment on above: Performed By: #### 6 9742-5 ####[facility]#### 726[address]-4 ####[facility], [address] [place] [address]. Eosinophils/100 WBC Auto (Bld) 3.1 % Normal 0.0-7.0 [facility] Comment on above: Performed By: #### 6 9742-5 ####[address]#### 48329-7 ####[facility], [address] [place] [address]. Erythrocyte distribution width Entitic volume (RBC) 16.3 % High 11.0-14.8 [facility] Comment on above: Performed By: #### 6 9742-5 ####[address]#### 73502-6 ####[facility], [address] [place] [address]. Hematocrit Auto Volume Fraction (Bld) 37.5 % Normal 35.0-45.0 [facility] Comment on above: Performed By: #### 6 9742-5 ####[address]#### 81899-0 ####[facility], [address] [place] [address]. Hemoglobin mass conc (Bld) 12.2 g/dL Normal 12.0-16.0 [facility] Comment on above: Performed By: #### 6 9742-5 ####[address]#### 45835-1 ####[facility], [address] [place] [address]. Lymphocytes Auto #/vol (Bld) 1.40 thou/mcL Normal 1.00-4.80 [facility] Comment on above: Performed By: #### 6 9742-5 ####[facility]#### 620[address]-4 ####[facility], [address] [place] [address]. Lymphocytes/100 WBC Auto (Bld) 19.5 % Low 22.0-44.0 [facility] Comment on above: Performed By: #### 6 9742-5 ####[address]#### 46153-7 ####[facility], [address] [place] [address]. MCH Auto Entitic mass (RBC) 25.2 Picograms Low 27.0-34.0 [facility] Comment on above: Performed By: #### 6 9742-5 ####[address]#### 61925-8 ####[facility], [address] [place] [address]. MCHC Auto mass conc (RBC) 32.6 g/dL Normal 32.0-36.0 [facility] Comment on above: Performed By: #### 6 9742-5 ####[address]#### 08285-9 ####[facility], [address] [place] [address]. MCV Auto Entitic volume (RBC) 77.2 fL Low 80.0-97.0 [facility] Comment on above: Performed By: #### 6 9742-5 ####[address]#### 63736-1 ####[facility], [address] [place] [address]. Monocytes Auto #/vol (Bld) 0.50 thou/mcL Normal 0.00-0.90 [facility] Comment on above: Performed By: #### 6 9742-5 ####[address]#### 24139-9 ####[facility], [address] [place] [address]. Monocytes/100 WBC Auto (Bld) 6.7 % Normal 0.0-12.0 [facility] Comment on above: Performed By: #### 6 9742-5 ####[facility]#### 52767-9 ####[facility], [address] [place] [address]. Neutrophils Auto #/vol (Bld) 5.00 thou/mcL Normal 1.80-7.70 [facility] Comment on above: Performed By: #### 6 9742-5 ####[address]#### 15500-0 ####[facility], [address] [place] [address]. Neutrophils/100 WBC Auto (Bld) 69.8 % Normal 40.0-70.0 [facility] Comment on above: Performed By: #### 6 9742-5 ####[address]#### 84334-5 ####[facility], [address] [place] [address]. Platelet mean volume Entitic volume (Bld) 8.4 FL Normal 6.2-12.1 [facility] Comment on above: Performed By: #### 6 9742-5 ####[address]#### 94961-9 ####[facility], [address] [place] [address]. Platelets Auto #/vol (Bld) 278 thou/mcL Normal 142-424 [facility] Comment on above: Performed By: #### 6 9742-5 ####[address]#### 13621-7 ####[facility], [address] [place] [address]. RBC Auto #/vol (Bld) 4.86 million/mcL Normal 3.80-5.10 [facility] Comment on above: Performed By: #### 6 9742-5 ####[facility] [address], [place]#### [address]-1 ####[facility], [address], [place]. WBC Auto #/vol (Bld) 7.2 thou/mcL Normal 4.6-10.[address] [facility] Comment on above: Performed By: #### 6 9742-5 ####[facility] [address], [place]#### 62465-3 ####[facility], [address] [place] [address]. Sedimentation Rate rbcon ESR Velocity (Bld) 32 mm/h High 0-20 [facility] Comment on above: Performed By: #### 6 9742-5 ####[address]#### 05219-2 ####[facility], [address] [place] [address]. XR Knee 4+ Views RTon 2017 XR Knee - right 4 views EXAMINATION TYPE: XR Knee 4+ Views RT DATE OF EXAM : 12/21/2017 11:15 AMHISTORY: pain in the knee,COMPARISON: NONEFINDINGS: Standing AP, PA, lateral and sunrise patella view submitted of the RIGHT knee. AP imaging demonstrates postoperative changes bilaterally the knees status post total knee replacement. The RIGHT knee prostheses appear properly seated [place] bone without fracture. Relationship within normal limits. No convincing plain from evidence of an effusion. Bone density appears mildly diminished but without acute or dominant focal abnormality.Limited imaging of the LEFT knee is notable only for postoperative changes without opposed acute finding.IMPRESSION: No acute findings.[employer] thanks you for the opportunity to care for your patient. Workstation ID: [id number] - [id number] FINAL REPORT Dictated By: Peter Crain MD 12/21/2017 13:24Assigned Physician: Peter Crain MD and Electronically Signed By: Peter Crain MD 12/21/2017 13:26Transcribed by: BARRON 12/21/2017 13:24Technologist: [facility] CNOVnap[place] 07-21-2017 CNOV Office Visit (CARDFT) MILLIE GRAHAM ([id number]) 1955 [address] Time Provider Rvwmwulgkz95/3/17 1:00 PM ITALO ANN During your visit today, we recorded the following information about you: Pulse Respiration Blood pressure Weight 86/minute 18/minute 146/57 127 kg Height 1.6 Cece Ann MD 07/21/2017 1:57 PM [facility] InstituteRobert and Mechelle Dodd Department of Cardiovascular MedicineOUTPATIENT VISIT DATE 07/21/17OUTPATIENT VISIT TYPEESTABLISHEDPRIMARY CARE PHYSICIAN:MISAEL Garcia[address] [facility] [address]Gfzxp: [phone]: [phone] COMPLAINT:Patient presents with:Leg EdemaShortness of BreathHISTORY OF PRESENT ILLNESS:Renuka Graham is a 61 year old female [...] under the care of Dr. Schilling of [facility]. Shehas had multiple procedures performed which are [...] year. She does statethat she was taking nysy-fwr-detqjzf diet pills until recently. They were notworking. [...] kg (280 lb) SpO2 96% BMI 49.6 kg/b1Maoscxj: Well appearing, in no acute distress.Eyes: Conjunctiva [...] a 2-D echocardiogram performed at the [facility] normal left ventricular systolic function with an ejection fraction of60%. There was no significant valvular disease identified. There was nocomment on diastolic function.02/24/2017 - a 2-D echocardiogram performed at the [facility] low normal to mildly reduced left ventricular systolic function withan ejection fraction of 45-50%. There was minimal concentric left ventricularhypertrophy present. There was evidence of grade 1 diastolic dysfunction.There was mild mitral regurgitation. No estimate a right ventricular systolicpressure was possible on this study.Stress Evaluations:02/26/2016 - a Lexiscan nuclear stress evaluation at the [facility] a left ventricular ejection fraction of 50% with abnormal septal wallmotion. There was a small defect involving the inferior oh apical wall whichwas fixed. This was felt to likely represent artifact. There was no otherevidence of Lexiscan stress-induced ischemia.02/24/2017 - [facility] systolic function with an ejectionfraction of 48%. There was a moderate sized anterior septal defect which waspartially reversible noted. This was read as suggestive of possiblestress-induced ischemia.Cardiac Catheterizations: 004 - [facility]. There was moderately decreased leftventricular systolic function noted with an ejection fraction of 30%.Moderately elevated right heart pressures and a normal cardiac index werenoted. The patient was continued on Demadex, Diovan, around oh lactone, Coreg3.125 mg twice a day.06/12/2005 - a right and left heart catheterization was performed at [facility] revealing nonobstructive coronary artery disease,left ventricular ejection fraction of 50%, moderate pulmonary hypertension,severely elevated left ventricular end-diastolic pressure, normal cardiacoutput and normal cardiac index. The patient was started on Lasix 40 mg twicea day.02/14/2008 - a right and left heart catheterization was performed at [facility] revealing mild 3 vessel coronary arterydisease, mildly reduced left ventricular systolic function (no ejectionfraction noted on the report), mild mitral regurgitation, mildly elevated leftventricular end-diastolic pressure, mild pulmonary hypertension and a normalcardiac index. No changes were made to the medical regimen.02/28/2013 - a right and left heart catheterization performed at [facility] reveals mild 3 vessel coronary artery disease, mild pulmonaryhypertension, preserved cardiac index and no evidence of cardiac shunt. Thisstudy was performed due to an abnormal stress test and a suspected patentforamen ovale versus ASD on echocardiogram. Medical therapy was recommendedbut not detailed in the report.03/05/2017 - a right and left heart catheterization was performed at [facility] revealing nonobstructive coronary artery disease, mildlyreduced [...] therapy, gastroesophageal reflux disease and obesity.No significant price changer the past 2-3 weeks.2. Edema, unspecified [...] provided to the requesting physician by [facility] or to the requesting physician via U.S. Mail.This document was generated utilizing [employer]. I have reviewed andverified that the contents of the document are accurate with the exception ofminor grammatical, spelling and punctuation errors.CONTACT INFORMATION:Thank you for allowing us to participate in the care of this very pleasantpatient. Please free to contact us if we can be of any further assistance.Italo Ann MD, [facility] and Mechelle MariscalOhioHealth Grady Memorial Hospitalment of Cardiovascular MedicineOhiohealth Grant Medical Centerrt and Vascular Institute[address] [address]Oh[place]phi: [phone] Referring Provider: PETER SOSA [[id number]]Allergies As of Date: 07/21/2017 Noted Allergy ReactionLATEX [...] Status:Closed by LUC ANN MD on 07/21/17 [facility] PROGRESSon 07-21-2017 Protein mass conc HNO ID: [id number]: Italo Caleropayal Montezervice: (none)Author Type: PhysicianType: Progress NotesFiled: 07/21/2017 1:57 PMNote Text:[facility] Department of Cardiovascular MedicineOUTPATIENT VISIT DATE 07/21/17OUTPATIENT VISIT TYPEESTABLADVENTHEALTHPRD.W. [facility] CARE PHYSICIAN:Peter Sosa DO[address] [place] [address]Guwls: [phone]: [phone] COMPLAINT:Patient presents with:Leg EdemaShortness of BreathHISTORY OF PRESENT ILLNESS:Renuka Graham is a 61 year old female [...] and under the care of Dr. Schilling [facility]. She has had multiple procedures performed which [...] year. She does state that shewas taking covk-tzd-xokbotd diet pills until recently. They were notworking. 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 There was no significant valvular disease identified.There was no comment on diastolic function.02/24/2017 - [facility] to mildly reduced left ventricular systolic functionwith an ejection fraction of 45-50%. There was minimal concentric leftventricular hypertrophy present. There was evidence of grade 1 diastolicdysfunction. There was mild mitral regurgitation. No estimate a rightventricular systolic pressure was possible on this study.Stress Evaluations:02/26/2016 - a Lexiscan nuclear stress evaluation at the [facility] revealed a left ventricular ejection fraction of 50% with abnormalseptal wall motion. There was a small defect involving the inferior ohapical wall which was fixed. This was felt to likely represent artifact.There was no other evidence of Lexiscan stress-induced ischemia.02/24/2017 - a Lexiscan nuclear stress evaluation at the [facility] revealed mildly diminished left ventricular systolic function withan ejection fraction of 48%. There was a moderate sized anterior septaldefect which was partially reversible noted. This was read as suggestiveof possible stress-induced ischemia.Cardiac Catheterizations: 004 - a cardiac catheterization performed at the [facility] revealed normal coronary arteries. There was moderately decreasedleft ventricular systolic function noted with an ejection fraction of 30%. Moderately elevated right heart pressures and a normal cardiac index werenoted. The patient was continued on Demadex, Diovan, around oh lactone,Coreg 3.125 mg twice a day.06/12/2005 - a right and left heart catheterization was performed at [facility] revealing nonobstructive coronary arterydisease, left ventricular ejection fraction of 50%, moderate pulmonaryhypertension, severely elevated left ventricular end-diastolic pressure,normal cardiac output and normal cardiac index. The patient was startedon Lasix 40 mg twice a day.02/14/2008 - a right and left heart catheterization was performed at [facility] revealing mild 3 vessel coronaryartery disease, mildly reduced left ventricular systolic function (noejection fraction noted on the report), mild mitral regurgitation, mildlyelevated left ventricular end-diastolic pressure, mild pulmonaryhypertension and a normal cardiac index. No changes were made to [facility] regimen.02/28/2013 - a right and left heart catheterization performed at [facility] reveals mild 3 vessel coronary artery disease, mildpulmonary hypertension, preserved cardiac index and no evidence of cardiacshunt. This study was performed due to an abnormal stress test and asuspected patent foramen ovale versus ASD on echocardiogram. Medicaltherapy was recommended but not detailed in the report.03/05/2017 - a right and left heart catheterization was performed at [facility] revealing nonobstructive coronary artery disease,mildly reduced [...] therapy, gastroesophagealreflux disease and obesity. No significant price changer the past 2-3weeks.2. Edema, unspecified type [...] via U.S. Mail.This document was generated utilizing [employer] dictation. I have reviewedand verified that the contents of the document are accurate with theexception of minor grammatical, spelling and punctuation errors.CONTACT INFORMATION:Thank you for allowing us to participate in the care of this very pleasantpatient. Please free to contact us if we can be of any furtherassistance.Maria A Ann MD, FACCRobert and Mechelle Manciapartment of Cardiovascular MedicineOhiohealth Grant Medical Centerrt and Vascular InstituteSamantha Ville [address], [place] [address]Emkopn: [phone] [facility] CNOVon 06-30-2017 CNOV Office Visit (CARDFT) MILLIE GRAHAM ([id number]) 1955 [facility] Time Provider Department06/30/17 12:30 PM ITALO ANN BLAINEPAYAL BERRY During your visit today, we recorded the following information about you: Pulse Respiration Blood pressure Weight 74/minute 18/minute 180/91 127 kg Height 1.6 Cece Ann MD 07/06/2017 1:12 PM [facility] InstituteRobpeak behavioral health services and Mechelle Mariscal Department of Cardiovascular MedicineOUTPATIENT VISIT DATE 06/30/17OUTPATIENT VISIT TYPENEWPRIMARY CARE PHYSICIAN:Peter Sosa DO[address] [facility] [address]Zcadb: [phone]: [phone] COMPLAINT:Patient presents with:CARD New Patient ConsultHISTORY OF PRESENT ILLNESS:Renuka rGaham is a 61 year old female with [...] under the care of Dr. Schilling of [facility]. Femis had multiple procedures performed which are [...] year. She does statethat she was taking lbom-wue-vbylbev diet pills until recently. They were notworking. [...] (coronary artery disease)- CHF (congestive heart failure) ([facility])- DM (diabetes mellitus) ([facility])- Fibromyalgia- GERD (gastroesophageal reflux disease)- HTN (hypertension)- OA (osteoarthritis) of knee- JEREMY (obstructive sleep apnea)- Pulmonary HTN ([facility])- Restrictive lung disease- Vitamin D deficiencyPAST [...] kg (280 lb) SpO2 100% BMI 49.6 kg/r9Oztfwdb: Well appearing, in no acute distress.Eyes: Conjunctiva [...] a 2-D echocardiogram performed at the [facility] normal left ventricular systolic function with an ejection fraction of60%. There was no significant valvular disease identified. There was nocomment on diastolic function.02/24/2017 - a 2-D echocardiogram performed at the [facility] low normal to mildly reduced left ventricular systolic function withan ejection fraction of 45-50%. There was minimal concentric left ventricularhypertrophy present. There was evidence of grade 1 diastolic dysfunction.There was mild mitral regurgitation. No estimate a right ventricular systolicpressure was possible on this study.Stress Evaluations:02/26/2016 - a Lexiscan nuclear stress evaluation at the [facility] a left ventricular ejection fraction of 50% with abnormal septal wallmotion. There was a small defect involving the inferior oh apical wall whichwas fixed. This was felt to likely represent artifact. There was no otherevidence of Lexiscan stress-induced ischemia.02/24/2017 - [facility] systolic function with an ejectionfraction of 48%. There was a moderate sized anterior septal defect which waspartially reversible noted. This was read as suggestive of possiblestress-induced ischemia.Cardiac Catheterizations: 004 - [facility]. There was moderately decreased leftventricular systolic function noted with an ejection fraction of 30%.Moderately elevated right heart pressures and a normal cardiac index werenoted. The patient was continued on Demadex, Diovan, around oh lactone, Coreg3.125 mg twice a day.06/12/2005 - a right and left heart catheterization was performed at [facility] revealing nonobstructive coronary artery disease,left ventricular ejection fraction of 50%, moderate pulmonary hypertension,severely elevated left ventricular end-diastolic pressure, normal cardiacoutput and normal cardiac index. The patient was started on Lasix 40 mg twicea day.02/14/2008 - a right and left heart catheterization was performed at [facility] revealing mild 3 vessel coronary arterydisease, mildly reduced left ventricular systolic function (no ejectionfraction noted on the report), mild mitral regurgitation, mildly elevated leftventricular end-diastolic pressure, mild pulmonary hypertension and a normalcardiac index. No changes were made to the medical regimen.02/28/2013 - a right and left heart catheterization performed at [facility] reveals mild 3 vessel coronary artery disease, mild pulmonaryhypertension, preserved cardiac index and no evidence of cardiac shunt. Thisstudy was performed due to an abnormal stress test and a suspected patentforamen ovale versus ASD on echocardiogram. Medical therapy was recommendedbut not detailed in the report.03/05/2017 - a right and left heart catheterization was performed at [facility] revealing nonobstructive coronary artery disease, mildlyreduced [...] via U.S. Mail.This document was generated utilizing [employer]me[employer]. I have reviewed andverified that the contents of the document are accurate with the exception ofminor grammatical, spelling and punctuation errors.CONTACT INFORMATION:Thank you for allowing us to participate in the care of this very pleasantpatient. Please free to contact us if we can be of any further assistance.Italo Ann MD, [facility] and Mechelle DoddFlpartment of Cardiovascular MedicineOhiohealth Grant Medical Centerrt [facility] Institute[address] [address]Axwsey: [phone] Referring Provider: NO PCP [[id number]]Allergies As of [...] Class III, BMI 40-49.9 (morbid obesity) (HCC) [E66.01]Prescriptions as of 06/30/2017 Sig: ESOMEPRAZOLE MAGNESIUM [...] by LUC ANN MD on 07/06/17 [facility] PROGRESSon 06-30-2017 Protein mass conc HNO ID: [id number]: Italo FultonyService: (none)Author Type: PhysicianType: Progress NotesFiled: 07/06/2017 1:12 PMNote Text:[facility] and Vascular InstituteT[place] and [facility] Department of Cardiovascular MedicineOUTPATIENT VISIT DATE 06/30/17OUTPATIENT VISIT TYPENEWPRIMARY CARE PHYSIC[place] [address]Ahhnu: [phone]: [phone] COMPLAINT:Patient presents with:CARD New Patient ConsultHISTORY OF PRESENT ILLNESS:Renuka Graham is a 61 year old female [...] and under the care of Dr. Schilling [facility]. She has had multiple procedures performed which [...] year. She does state that shewas taking [id number] diet pills until recently. They were notworking. 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 with continuedreasonable testing in an effort to try to help the patient's situation.She and her son seems very upset with the lack of progress.PAST MEDICAL HISTORYDiagnosis Date- Anxiety- ASD (atrial septal defect)- Asthma- CAD (coronary artery disease)- CHF (congestive heart failure) ([facility])- DM (diabetes mellitus) ([facility])- Fibromyalgia- GERD (gastroesophageal reflux disease)- HTN [...] kg (280 lb) SpO2 100% BMI 49.6 kg/q0Wcvdhbe: Well appearing, in no acute distress.Eyes: Conjunctiva [...] a 2-D echocardiogram performed at the [facility] normal left ventricular systolic function with an ejectionfraction of 60%. There was no significant valvular disease identified.There was no comment on diastolic function.02/24/2017 - a 2-D echocardiogram performed at the [facility] low normal to mildly reduced left ventricular systolic functionwith an ejection fraction of 45-50%. There was minimal concentric leftventricular hypertrophy present. There was evidence of grade 1 diastolicdysfunction. There was mild mitral regurgitation. No estimate a rightventricular systolic pressure was possible on this study.Stress Evaluations:02/26/2016 - a Lexiscan nuclear stress evaluation at the [facility] revealed a left ventricular ejection fraction of 50% with abnormalseptal wall motion. There was a small defect involving the inferior ohapical wall which was fixed. This was felt to likely represent artifact.There was no other evidence of Lexiscan stress-induced ischemia.02/24/2017 - a Lexiscan nuclear stress evaluation at the [facility] revealed mildly diminished left ventricular systolic function withan ejection fraction of 48%. There was a moderate sized anterior septaldefect which was partially reversible noted. This was read as suggestiveof possible stress-induced ischemia.Cardiac Catheterizations: 004 - a cardiac catheterization performed at the [facility] revealed normal coronary arteries. There was moderately decreasedleft ventricular systolic function noted with an ejection fraction of 30%. Moderately elevated right heart pressures and a normal cardiac index werenoted. The patient was continued on Demadex, Diovan, around oh lactone,Coreg 3.125 mg twice a day.06/12/2005 - a right and left heart catheterization was performed at [facility] revealing nonobstructive coronary arterydisease, left ventricular ejection fraction of 50%, moderate pulmonaryhypertension, severely elevated left ventricular end-diastolic pressure,normal cardiac output and normal cardiac index. The patient was startedon Lasix 40 mg twice a day.02/14/2008 - a right and left heart catheterization was performed at [facility] revealing mild 3 vessel coronaryartery disease, mildly reduced left ventricular systolic function (noejection fraction noted on the report), mild mitral regurgitation, mildlyelevated left ventricular end-diastolic pressure, mild pulmonaryhypertension and a normal cardiac index. No changes were made to [facility] regimen.02/28/2013 - a right and left heart catheterization performed at [facility] reveals mild 3 vessel coronary artery disease, mildpulmonary hypertension, preserved cardiac index and no evidence of cardiacshunt. This study was performed due to an abnormal stress test and asuspected patent foramen ovale versus ASD on echocardiogram. Medicaltherapy was recommended but not detailed in the report.03/05/2017 - a right and left heart catheterization was performed at [facility] revealing nonobstructive coronary artery disease,mildly reduced [...] physicianvia U.S. Mail.This document was generated utilizing [employer] dictation. I have reviewedand verified that the contents of the document are accurate with theexception of minor grammatical, spelling and punctuation errors.CONTACT INFORMATION:Thank you for allowing us to participate in the care of this very pleasantpatient. Please free to contact us if we can be of any furtherassistance.Maria A Ann MD, [facility] and Mechelle MariscalDepartment of Cardiovascular MedicineLittle [facility] Medical Center and [facility] [address]Nddijl: [phone] [facility] Vital Signs Date Time Vital Sign Value Performing Clinician Mary miguel 04-28-2025 12:31-0400 Body height 160 cm Vlad Joel MD Work Phone: [facility] 04-28-2025 12:31-0400 Body mass index (BMI) [Ratio] 37.41 kg/m2 Vlad Joel MD Work Phone: [facility] 04-28-2025 12:31-0400 Body weight 95.8 kg Vlad Joel MD Work Phone: [facility] 03-17-2025 11:39-0400 Body height 162.6 cm Leah Barrera MD Work Phone: [facility] 03-17-2025 11:39-0400 Body mass index (BMI) [Ratio] 34.5 kg/m2 Leah Barrera MD Work Phone: [facility] 03-17-2025 11:39-0400 Body weight 91.17 kg Leah Barrera MD Work Phone: [facility] 03-17-2025 11:39-0400 Diastolic blood pressure 64 mm[Hg] Leah Barrera MD Work Phone: [facility] 03-17-2025 11:39-0400 Heart rate 63 /min Leah Barrera MD Work Phone: [facility] 03-17-2025 11:39-0400 Systolic blood pressure 131 mm[Hg] Leah Barrera MD Work Phone: [facility] 01-18-2025 10:16-0400 Body height 162.6 cm Leah Barrera MD Work Phone: [facility] 01-18-2025 10:16-0400 Body mass index (BMI) [Ratio] 34.5 kg/m2 Leah Barrera MD Work Phone: [facility] 01-18-2025 10:16-0400 Body weight 91.17 kg Leah Barrera MD Work Phone: [facility] 01-18-2025 10:16-0400 Diastolic blood pressure 58 mm[Hg] Leah Barrera MD Work Phone: [facility] 01-18-2025 10:16-0400 Heart rate 76 /min Leah Barrera MD Work Phone: [facility] 01-18-2025 10:16-0400 Systolic blood pressure 91 mm[Hg] Leah Barrera MD Work Phone: [facility] 01-06-2025 07:28-0400 Body temperature 97.7 [degF] Estrella Bryan MD Work Phone: [facility] 01-06-2025 07:28-0400 Diastolic blood pressure 57 mm[Hg] Estrella Bryan MD Work Phone: [facility] 01-06-2025 07:28-0400 Heart rate 60 /min Estrella Bryan MD Work Phone: [facility] 01-06-2025 07:28-0400 Respiratory rate 20 /min Estrella Bryan MD Work Phone: [facility] 01-06-2025 07:28-0400 SaO2% (BldA) [Mass fraction] 97 % Estrella Bryan MD Work Phone: [facility] 01-06-2025 07:28-0400 Systolic blood pressure 124 mm[Hg] Estrella Bryan MD Work Phone: [facility] 01-05-2025 15:07-0400 Body height 160 cm Estrella Bryan MD Work Phone: [facility] 01-05-2025 15:07-0400 Body mass index (BMI) [Ratio] 37.92 kg/m2 Estrella Bryan MD Work Phone: [facility] 01-05-2025 15:07-0400 Body weight 97.07 kg Estrella Bryan MD Work Phone: [facility] 10-27-2024 12:38-0500 Body height 160.02 cm [facility] 10-27-2024 12:38-0500 Body mass index (BMI) [Ratio] 38.9 kg/m2 [facility] 10-27-2024 12:38-0500 Body temperature 97.4 [degF] [facility] 10-27-2024 12:38-0500 Body weight 99.84 kg [facility] 10-27-2024 12:38-0500 Diastolic blood pressure 77 mm[Hg] [facility] 10-27-2024 12:38-0500 Heart rate 80 /min [facility] 10-27-2024 12:38-0500 Respiratory rate 18 /min [facility] 10-27-2024 12:38-0500 SaO2% (BldA) [Mass fraction] 98 % [facility] 10-27-2024 12:38-0500 Systolic blood pressure 115 mm[Hg] [facility] 01-05-2024 14:24-0400 Body height 160.02 cm [facility] 01-05-2024 14:24-0400 Body mass index (BMI) [Ratio] 35.9 kg/m2 [facility] 01-05-2024 14:24-0400 Body temperature 97.3 [degF] [facility] 01-05-2024 14:24-0400 Body weight 92.07 kg [facility] 01-05-2024 14:24-0400 Diastolic blood pressure 82 mm[Hg] [facility] 01-05-2024 14:24-0400 Heart rate 72 /min [facility] 01-05-2024 14:24-0400 Respiratory rate 20 /min [facility] 01-05-2024 14:24-0400 SaO2% (BldA) [Mass fraction] 99 % [facility] 01-05-2024 14:24-0400 Systolic blood pressure 133 mm[Hg] [facility] 07-07-2023 14:15-0400 Body height 160.02 cm Yuan Romeo Other [employer] [facility] [employer] Other 07-07-2023 14:15-0400 Body mass index (BMI) [Ratio] 36.31 kg/m2 Yuan Romeo Other [employer] Other 07-07-2023 14:15-0400 Body temperature 97.4 [degF] Yuan Romeo Other [employer] Other 07-07-2023 14:15-0400 Body weight 92.99 kg Yuan Romeo Other [employer] Other 07-07-2023 14:15-0400 Diastolic blood pressure 80 mm[Hg] Yuan Tobinno Other [employer] Other 07-07-2023 14:15-0400 Respiratory rate 20 /min Yuan Tobinno Other [employer] Other 07-07-2023 14:15-0400 SaO2% (BldA) [Mass fraction] 100 % Yuan Romeo Other [employer] Other 07-07-2023 14:15-0400 Systolic blood pressure 145 mm[Hg] Yuan Romeo Other [employer] Other 03-25-2023 08:50-0400 Body temperature 97.5 [degF] Anusha Barber MD Work Phone: [employer] 03-25-2023 08:50-0400 Diastolic blood pressure 67 mm[Hg] Anusha Barber MD Work Phone: [employer] 03-25-2023 08:50-0400 Heart rate 76 /min Anusha Barber MD Work Phone: [employer] 03-25-2023 08:50-0400 SaO2% (BldA) [Mass fraction] 96 % Anusha Barber MD Work Phone: [employer] 03-25-2023 08:50-0400 Systolic blood pressure 111 mm[Hg] Anusha Barber MD Work Phone: [employer] 03-25-2023 04:20-0400 Respiratory rate 14 /min Anusha Barber MD Work Phone: [employer] 03-19-2023 11:45-0400 Body height 160 cm Anusha Barber MD Work Phone: [employer] 03-19-2023 11:45-0400 Body mass index (BMI) [Ratio] 40.07 kg/m2 Anusha Barber MD Work Phone: [employer] 03-19-2023 11:45-0400 Body weight 102.6 kg Anusha Barber MD Work Phone: [employer] 02-09-2023 13:45-0400 Body height 160.02 cm Reynaldo Trejo Other [employer] Other 02-09-2023 13:45-0400 Body mass index (BMI) [Ratio] 42.31 kg/m2 Reynaldo Trejo Other [employer] Other 02-09-2023 13:45-0400 Body weight 108.37 kg Reynaldo Trejo Other [employer] Other 02-09-2023 13:45-0400 Diastolic blood pressure 61 mm[Hg] Reynaldo Trejo Other [employer] Other 02-09-2023 13:45-0400 Respiratory rate 18 /min Reynaldo Trejo Other [employer] Other 02-09-2023 13:45-0400 SaO2% (BldA) [Mass fraction] 98 % Reynaldo Trejo Other [employer] Other 02-09-2023 13:45-0400 Systolic blood pressure 125 mm[Hg] Reynaldo Trejo Other [employer] Other 01-06-2023 15:15-0400 Body height 160.02 cm Yuan Romeo Other [employer] Other 01-06-2023 15:15-0400 Body mass index (BMI) [Ratio] 41.8 kg/m2 Christnilesher Agueda Other [employer] Other 01-06-2023 15:15-0400 Body temperature 98 [degF] Christnilesher Agueda Other [employer] Other 01-06-2023 15:15-0400 Body weight 107.05 kg Christopher Agueda Other [employer] Other 01-06-2023 15:15-0400 Diastolic blood pressure 74 mm[Hg] Christnilesher Agueda Other [employer] Other 01-06-2023 15:15-0400 Respiratory rate 20 /min Christnilesher Agueda Other [employer] Other 01-06-2023 15:15-0400 SaO2% (BldA) [Mass fraction] 98 % Christopher Agueda Other [employer] Other 01-06-2023 15:15-0400 Systolic blood pressure 117 mm[Hg] Waner Agueda Other [employer] Other 10-06-2022 08:06-0500 Body temperature 97.7 [degF] Anusha Barber MD Work Phone: [employer] 10-06-2022 08:06-0500 Diastolic blood pressure 75 mm[Hg] Anusha Barber MD Work Phone: [employer] 10-06-2022 08:06-0500 Heart rate 73 /min Anusha Barber MD Work Phone: [employer] 10-06-2022 08:06-0500 Respiratory rate 16 /min Anusha Barber MD Work Phone: [employer] 10-06-2022 08:06-0500 SaO2% (BldA) [Mass fraction] 96 % Anusha Barber MD Work Phone: [employer] 10-06-2022 08:06-0500 Systolic blood pressure 134 mm[Hg] Anusha Barber MD Work Phone: [employer] 10-02-2022 10:00-0500 Body height 160 cm Anusha Barber MD Work Phone: [employer] 10-02-2022 10:00-0500 Body mass index (BMI) [Ratio] 43 kg/m2 Anusha Barber MD Work Phone: [employer] 10-02-2022 10:00-0500 Body weight 110.1 kg Anusha Barber MD Work Phone: [employer] 09-30-2022 11:00-0500 Body height 160.02 cm Mabel Arkadinreynas Other [employer] Other 09-30-2022 11:00-0500 Body mass index (BMI) [Ratio] 43.61 kg/m2 Mabel Arkadinreynas Other [employer] Other 09-30-2022 11:00-0500 Body temperature 97.3 [degF] Azoliver GenOils Other [employer] Other 09-30-2022 11:00-0500 Body weight 111.68 kg Aziz Arkadinhous Other [employer] Other 09-30-2022 11:00-0500 Diastolic blood pressure 75 mm[Hg] Aziz Arkadinhous Other [employer] Other 09-30-2022 11:00-0500 Respiratory rate 18 /min Mabel Ortega Other [employer] Other 09-30-2022 11:00-0500 SaO2% (BldA) [Mass fraction] 94 % Mabel Ortega Other [employer] Other 09-30-2022 11:00-0500 Systolic blood pressure 111 mm[Hg] Mabel Ortega Other [employer] Other 09-25-2022 13:14-0500 Body height 160.02 cm Peter Julio Cesar [employer] Work Phone: [employer] [facility] [facility] DO Work Phone: 09-25-2022 13:14-0500 Body mass index (BMI) [Ratio] 43.93 kg/m2 Peter Julio Cesar Sosa Work Phone: [employer] DO Work Phone: 09-25-2022 13:14-0500 Body surface area Derived from formula 2.12 m2 Peter Julio Cesar [employer] Work Phone: [employer] DO Work Phone: 09-25-2022 13:14-0500 Body weight 112.49 kg Peter Julio Cesar Sosa Work Phone: [employer] DO Work Phone: 09-25-2022 13:14-0500 Diastolic blood pressure 70 mm[Hg] Peter Harrell Sosa Work Phone: [employer] DO Work Phone: 09-25-2022 13:14-0500 Heart rate 54 /min Peter Harrell Sosa Work Phone: [employer] DO Work Phone: 09-25-2022 13:14-0500 Systolic blood pressure 122 mm[Hg] Peter Sosa Work Phone: [facility] DO Work Phone: 08-18-2022 10:00-0400 Body height 160.02 cm Reynaldo Trejo Other [employer] Other 08-18-2022 10:00-0400 Body mass index (BMI) [Ratio] 43.55 kg/m2 Reynaldo Trejo Other [employer] Other 08-18-2022 10:00-0400 Body weight 111.54 kg Reynaldo Trejo Other [employer] Other 08-18-2022 10:00-0400 Diastolic blood pressure 70 mm[Hg] Reynaldo Trejo Other [employer] Other 08-18-2022 10:00-0400 Respiratory rate 18 /min Reynaldo Trejo Other [employer] Other 08-18-2022 10:00-0400 SaO2% (BldA) [Mass fraction] 99 % Reynaldo Trejo Other [employer] Other 08-18-2022 10:00-0400 Systolic blood pressure 124 mm[Hg] Reynaldo Trejo Other [employer] Other 07-01-2022 10:15-0400 Body height 160.02 cm Ryenaldo Trejo Other [employer] Other 07-01-2022 10:15-0400 Body mass index (BMI) [Ratio] 44.85 kg/m2 Reynaldo Trejo Other [employer] Other 07-01-2022 10:15-0400 Body weight 114.85 kg Reynaldo Trejo Other [employer] Other 07-01-2022 10:15-0400 Diastolic blood pressure 66 mm[Hg] Reynaldo Trejo Other [employer] Other 07-01-2022 10:15-0400 Respiratory rate 18 /min Reynaldo Trejo Other [employer] Other 07-01-2022 10:15-0400 SaO2% (BldA) [Mass fraction] 97 % Reynaldo Trejo Other [employer] Other 07-01-2022 10:15-0400 Systolic blood pressure 127 mm[Hg] Reynaldo Trejo Other [employer] Other 05-27-2022 12:11-0400 Body height 160.02 cm DO Elda Schwerer Work Phone: [facility] 05-27-2022 12:11-0400 Body temperature 97.8 [degF] DO Elda Schwerer Work Phone: [facility] 05-27-2022 12:11-0400 Body weight 113.4 kg DO Elda Schwerer Work Phone: [facility] 05-27-2022 12:11-0400 Diastolic blood pressure 73 mm[Hg] DO Elda Schwerer Work Phone: [facility] 05-27-2022 12:11-0400 Heart rate 74 /min DO Elda Schwerer Work Phone: [facility] 05-27-2022 12:11-0400 Respiratory rate 18 /min DO Elda Schwerer Work Phone: [facility] 05-27-2022 12:11-0400 SaO2% (BldA) [Mass fraction] 97 % DO Elda Schwerer Work Phone: [facility] 05-27-2022 12:11-0400 Systolic blood pressure 142 mm[Hg] DO Elda Schwerer Work Phone: [facility] 05-20-2022 12:15-0400 Body height 160.02 cm Reynaldo Trejo Other [employer] Other 05-20-2022 12:15-0400 Body mass index (BMI) [Ratio] 44.58 kg/m2 Reynaldo Trejo Other [employer] Other 05-20-2022 12:15-0400 Body weight 114.17 kg Reynaldo Trejo Other [employer] Other 05-20-2022 12:15-0400 Diastolic blood pressure 58 mm[Hg] Reynaldo Trejo Other [employer] Other 05-20-2022 12:15-0400 Respiratory rate 18 /min Reynaldo Trejo Other [employer] Other 05-20-2022 12:15-0400 SaO2% (BldA) [Mass fraction] 96 % Reynaldo Trejo Other [employer] Other 05-20-2022 12:15-0400 Systolic blood pressure 116 mm[Hg] Reynaldo Trejo Other [employer] Other 04-16-2022 15:45-0400 Body height 160.02 cm Reynaldo Trejo Other [employer] Other 04-16-2022 15:45-0400 Body mass index (BMI) [Ratio] 44.99 kg/m2 Reynaldo Trejo Other [employer] Other 04-16-2022 15:45-0400 Body weight 115.21 kg Reynaldo Davisdiff Other [employer] Other 04-16-2022 15:45-0400 Diastolic blood pressure 67 mm[Hg] Reynaldo Davisdiff Other [employer] Other 04-16-2022 15:45-0400 Respiratory rate 18 /min Reynaldo Davisdiff Other [employer] Other 04-16-2022 15:45-0400 SaO2% (BldA) [Mass fraction] 97 % Reynaldo Davisdiff Other [employer] Other 04-16-2022 15:45-0400 Systolic blood pressure 123 mm[Hg] Reynaldo Davisdiff Other [employer] Other 04-16-2022 13:57-0400 Body temperature 98 [degF] DO Elda Schwerer Work Phone: [facility] 04-16-2022 13:57-0400 Body weight 115.21 kg DO Elda Schwerer Work Phone: [facility] 04-16-2022 13:57-0400 Diastolic blood pressure 73 mm[Hg] DO Elda Schwerer Work Phone: [facility] 04-16-2022 13:57-0400 Heart rate 81 /min DO Elda Schwerer Work Phone: [facility] 04-16-2022 13:57-0400 Respiratory rate 16 /min DO Elda Schwerer Work Phone: [facility] 04-16-2022 13:57-0400 SaO2% (BldA) [Mass fraction] 94 % DO Elda Schwerer Work Phone: [facility] 04-16-2022 13:57-0400 Systolic blood pressure 169 mm[Hg] DO Elda Schwerer Work Phone: [facility] 04-15-2022 15:45-0400 Body height 160.02 cm Yuan Romeo Other [employer] Other 04-15-2022 15:45-0400 Body mass index (BMI) [Ratio] 44.63 kg/m2 Yuan Romeo Other [employer] Other 04-15-2022 15:45-0400 Body temperature 97 [degF] Yuan Romeo Other [employer] Other 04-15-2022 15:45-0400 Body weight 114.31 kg Yuan Tobinno Other [employer] Other 04-15-2022 15:45-0400 Diastolic blood pressure 84 mm[Hg] Yuan Tobinno Other [employer] Other 04-15-2022 15:45-0400 Respiratory rate 20 /min Yuan Ramsaydano Other [employer] Other 04-15-2022 15:45-0400 SaO2% (BldA) [Mass fraction] 95 % Yuan Romeo Other [employer] Other 04-15-2022 15:45-0400 Systolic blood pressure 141 mm[Hg] Yuan Romeo Other [employer] Other 04-02-2022 14:40-0400 Body height 160.02 cm Mabel Alicias Other [employer] Other 04-02-2022 14:40-0400 Body mass index (BMI) [Ratio] 44.88 kg/m2 Mabel Alicias Other [employer] Other 04-02-2022 14:40-0400 Body temperature 96.9 [degF] Mabel Alicias Other [employer] Other 04-02-2022 14:40-0400 Body weight 114.94 kg Mabel Alicias Other [employer] Other 04-02-2022 14:40-0400 Diastolic blood pressure 75 mm[Hg] Mabel Alicias Other [employer] Other 04-02-2022 14:40-0400 Respiratory rate 18 /min Mabel Alicias Other [employer] Other 04-02-2022 14:40-0400 SaO2% (BldA) [Mass fraction] 92 % Mabel Alicias Other [employer] Other 04-02-2022 14:40-0400 Systolic blood pressure 120 mm[Hg] Mabel Mcallisterhous Other [employer] Other 02-05-2022 15:45-0400 Body height 160.02 cm Reynaldo Trejo Other [employer] Other 02-05-2022 15:45-0400 Body mass index (BMI) [Ratio] 45.06 kg/m2 Reynaldo Trejo Other [employer] Other 02-05-2022 15:45-0400 Body weight 115.4 kg Reynaldo Trejo Other [employer] Other 02-05-2022 15:45-0400 Diastolic blood pressure 68 mm[Hg] Reynaldo Trejo Other [employer] Other 02-05-2022 15:45-0400 Respiratory rate 18 /min Reynaldo Trejo Other [employer] Other 02-05-2022 15:45-0400 SaO2% (BldA) [Mass fraction] 95 % Reynaldo Trejo Other [employer] Other 02-05-2022 15:45-0400 Systolic blood pressure 120 mm[Hg] Reynaldo Davisdiff Other [employer] Other 12-18-2021 14:44-0500 Body height 161.29 cm DO Elda Sibley Work Phone: [facility] 11-05-2021 16:00-0500 Body mass index (BMI) [Ratio] 46.09 kg/m2 Elda Schwerer Other [employer] Other 11-05-2021 16:00-0500 Body weight 118.03 kg Elda Schwerer Other [employer] Other 11-05-2021 16:00-0500 Diastolic blood pressure 88 mm[Hg] Elda Schwerer Other [employer] Other 11-05-2021 16:00-0500 SaO2% (BldA) [Mass fraction] 93 % Elda Lynnerer Other [employer] Other 11-05-2021 16:00-0500 Systolic blood pressure 138 mm[Hg] Elda Schwerer Other [employer] Other 11-05-2021 14:45-0500 Body height 160.02 cm Reynaldo Maya Other [employer] Other 11-05-2021 14:45-0500 Body mass index (BMI) [Ratio] 46.44 kg/m2 Reynaldo Davisdiff Other [employer] Other 11-05-2021 14:45-0500 Body weight 118.93 kg Reynaldo Maya Other [employer] Other 11-05-2021 14:45-0500 Diastolic blood pressure 68 mm[Hg] Reynaldo Trejo Other [employer] Other 11-05-2021 14:45-0500 Respiratory rate 18 /min Reynaldosara Trejo Other [employer] Other 11-05-2021 14:45-0500 SaO2% (BldA) [Mass fraction] 95 % Reynaldo Trejo Other [employer] Other 11-05-2021 14:45-0500 Systolic blood pressure 118 mm[Hg] Reynaldo Trejo Other [employer] Other 09-25-2021 14:00-0500 Body height 160.02 cm Laquita Medina Other [employer] Other 09-25-2021 14:00-0500 Body mass index (BMI) [Ratio] 46.97 kg/m2 Laquita Medina Other [employer] Other 09-25-2021 14:00-0500 Body temperature 98.3 [degF] Laquita Medina Other [employer] Other 09-25-2021 14:00-0500 Body weight 120.29 kg Laquita Medina Other [employer] Other 09-25-2021 14:00-0500 Diastolic blood pressure 80 mm[Hg] Laquita Medina Other [employer] Other 09-25-2021 14:00-0500 Respiratory rate 18 /min Laquita Medina Other [employer] Other 09-25-2021 14:00-0500 SaO2% (BldA) [Mass fraction] 93 % Laquita Medina Other [employer] Other 09-25-2021 14:00-0500 Systolic blood pressure 139 mm[Hg] Laquita Medina Other [employer] Other 07-25-2021 11:45-0400 Body height 160.02 cm Elda Sibley Other [employer] Other 07-25-2021 11:45-0400 Body mass index (BMI) [Ratio] 46.16 kg/m2 Elda Schwerer Other [employer] Other 07-25-2021 11:45-0400 Body weight 118.21 kg Elda Schwerer Other [employer] Other 07-25-2021 11:45-0400 Diastolic blood pressure 70 mm[Hg] Elda Schwerer Other [employer] Other 07-25-2021 11:45-0400 Respiratory rate 18 /min Elda Schwerer Other [employer] Other 07-25-2021 11:45-0400 SaO2% (BldA) [Mass fraction] 98 % Elda Schwerer Other [employer] Other 07-25-2021 11:45-0400 Systolic blood pressure 126 mm[Hg] Elda Schwerer Other [employer] Other 07-11-2021 12:00-0400 Body height 160.02 cm Reynaldo Trejo Jr. Other [employer] Other 07-11-2021 12:00-0400 Body mass index (BMI) [Ratio] 45.84 kg/m2 Reynaldo Trejo Jr. Other [employer] Other 07-11-2021 12:00-0400 Body weight 117.39 kg Reynaldo Trejo Jr. Other [employer] Other 07-11-2021 12:00-0400 Diastolic blood pressure 63 mm[Hg] Reynaldo Davismaxim Carvajal Other [employer] Other 07-11-2021 12:00-0400 Respiratory rate 18 /min Reynaldo Bonilladesiree Carvajal Other [employer] Other 07-11-2021 12:00-0400 SaO2% (BldA) [Mass fraction] 96 % Reynaldo Davismaxim Carvajal Other [employer] Other 07-11-2021 12:00-0400 Systolic blood pressure 114 mm[Hg] Reynaldo Trejo Other [employer] Other 07-10-2021 12:15-0400 Body height 160.02 cm Yuan Romeo Other [employer] Other 07-10-2021 12:15-0400 Body mass index (BMI) [Ratio] 45.34 kg/m2 Yuan Romeo Other [employer] Other 07-10-2021 12:15-0400 Body temperature 97.3 [degF] Yuan Romeo Other [employer] Other 07-10-2021 12:15-0400 Body weight 116.12 kg Yuan Romeo Other [employer] Other 07-10-2021 12:15-0400 Diastolic blood pressure 65 mm[Hg] Yuan Romeo Other [employer] Other 07-10-2021 12:15-0400 Respiratory rate 20 /min Yuan Romeo Other [employer] Other 07-10-2021 12:15-0400 SaO2% (BldA) [Mass fraction] 94 % Yuan Romeo Other [employer] Other 07-10-2021 12:15-0400 Systolic blood pressure 108 mm[Hg] Romieted Ramsaydano Other [employer] Other Encounters Encounter Date Encounter Type Care Provider Facility Start: 06-13-2025 End: 06-13-2025 [facility] Start: 04-28-2025 ambulatory VLAD JOEL Facility :[facility] Start: 04-28-2025 End: 04-28-2025 Office consultation new/estab patient 60 min Vlad Joel MD Work Phone: [facility] Comment on above: Left knee pain, unsp ecified chronicity (Primary Dx); Left hip pain; History of total knee arthroplasty, left; Primary osteoarthritis of left hip Start: 04-28-2025 End: 04-28-2025 Subsequent hospital visit by physician Vlad Joel MD Work Phone: [facility] Comment on above: Arrived Start: 04-28-2025 ambulatory VLAD JOEL Facility :[facility] Start: 04-11-2025 End: 04-11-2025 ambulatory Peter Sosa [facility] Work Phone: Start: 04-11-2025 End: 04-11-2025 Departed Referred Peter Sosa DO -[facility] Start: 03-17-2025 End: 03-17-2025 Clinton Barrera MD Work Phone: [facility] Start: 03-17-2025 End: 03-17-2025 Clinton [facility] Start: 03-17-2025 End: 03-17-2025 ambulatory LEAH BARRERA Not Available Start: 03-17-2025 End: 03-17-2025 Office outpatient visit 25 minutes Leah Barrera MD Work Phone: [facility] [place] Comment on above: Allergic rhinitis, u nspecified seasonality, unspecified trigger (Primary Dx); Sensorineural hearing loss (SNHL), bilateral; Nontoxic multinodular goiter (CMS/HCC) Start: 03-14-2025 End: 03-14-2025 ambulatory DAPHNEY S CONSTANTINO Not Available Start: 03-14-2025 End: 03-14-2025 Patient encounter procedure Daphney Constantino AUD Work Phone: [facility] Comment on above: Sensorineural hearin g loss, bilateral (Primary Dx); Tinnitus, bilateral Start: 03-14-2025 End: 03-14-2025 Bamboo flowsheet Daphney Constantino AUD Work Phone: [facility] Start: 03-14-2025 End: 03-14-2025 Bamboo flowsheet Daphney Constantino AUD Work Phone: [place] [facility] Start: 01-24-2025 End: 01-24-2025 Clinisync Result Encounter Leah Barrera MD Work Phone: [facility] Unsolicited Start: 01-24-2025 End: 01-24-2025 Clinisync Result Encounter Leah Barrera MD Work Phone: [facility] Unsolicited Start: 01-18-2025 End: 01-18-2025 Bamboo flowsheet Leah Barrera MD Work Phone: [facility] Start: 01-18-2025 End: 01-18-2025 Bamboo flowsheet Leah Barrera MD Work Phone: [facility] Start: 01-18-2025 End: 01-18-2025 Office outpatient visit 25 minutes Leah Barrera MD Work Phone: [facility] Comment on above: ETD (Eustachian tube dysfunction), bilateral (Primary Dx); Ear fullness, bilateral; Swollen gland; Multinodular goiter (CMS/HCC) Start: 01-18-2025 End: 01-18-2025 ambulatory LEAH BARRERA Not Available Start: 01-05-2025 End: 01-06-2025 ambulatory ESTRELLA [facility] Start: 01-05-2025 End: 01-06-2025 Subsequent hospital visit by physician Estrella Bryan MD Work Phone: [facility] Comment on above: Hypotension after pr ocedure (Primary Dx) Start: 11-14-2024 End: 11-14-2024 ambulatory ESTRELLA [facility] Start: 11-14-2024 End: 11-14-2024 Subsequent hospital visit by physician [facility] Start: 10-27-2024 End: 10-27-2024 ambulatory [facility] Work Phone: Start: 10-27-2024 End: 10-27-2024 Patient encounter procedure [facility] [place] Work Phone: Start: 06-06-2024 End: 06-06-2024 Encounter identifier Anusha Barber Work Phone: [facility] Start: 06-03-2024 End: 06-03-2024 Encounter identifier Anusha Barber Work Phone: [facility] Start: 06-01-2024 End: 06-01-2024 ambulatory Carrolleli Boothe Facility:[facility] Start: 05-25-2024 End: 05-25-2024 Encounter identifier Kaur Pierre [facility] Work Phone: Start: 05-25-2024 End: 05-25-2024 Office outpatient visit 25 minutes Kaur Pierre Work Phone: [facility] Start: 03-28-2024 End: 03-28-2024 ambulatory Carroll Talrosa Bejarano Facility:[facility] Start: 03-23-2024 End: 03-23-2024 Office outpatient visit 15 minutes Anusha Barber Work Phone: [facility] Start: 01-05-2024 End: 01-05-2024 ambulatory [facility] Work Phone: Start: 01-05-2024 End: 01-05-2024 Patient encounter procedure [facility] Work Phone: Start: 11-03-2023 End: 11-03-2023 ambulatory Yuan Tobinno Other [employer] Other Start: 11-03-2023 Telephone encounter Yuan wood [facility] Start: 09-22-2023 End: 09-22-2023 ambulatory Azoliver Aryreynas Other [employer] Other Start: 09-22-2023 Telephone encounter Azoliver Bakreynas [facility] Start: 08-07-2023 End: 08-07-2023 Office outpatient visit 10 minutes Kaur Pierre Work Phone: [facility] Start: 07-09-2023 End: 07-09-2023 Encounter identifier Anusha Barber Work Phone: [facility] Start: 07-07-2023 End: 07-07-2023 ambulatory Yuan Tobinno Other [employer] Other Start: 07-07-2023 Office outpatient vi sit 15 minutes Yuan Tobinno [facility] Start: 07-03-2023 End: 07-03-2023 Encounter identifier Kaur Pierre Work Phone: [facility] Start: 06-29-2023 End: 06-29-2023 Encounter identifier Kaur Pierre Work Phone: [facility] Start: 06-29-2023 End: 06-29-2023 Postop follow up visit related to original px Anusha Barber MD [facility] Start: 06-04-2023 End: 06-04-2023 ambulatory Reynaldo Trejo Other [employer] Other Start: 06-04-2023 Telephone encounter Reynaldo [facility] Start: 03-30-[address] PETER SOSA Fac ility:[facility] Start: 03-20-2023 End: 03-20-2023 ambulatory Mabel Ortega Other [employer] Other Start: 03-20-2023 Telephone encounter Mabel Ortega [facility] Nephrology Start: 03-19-2023 End: 03-19-2023 Encounter identifier Kaur Pierre Work Phone: [facility] Start: 03-19-2023 ambulatory MARLENA LOWMIRISHABH . Facility: Start: 03-19-2023 End: 03-25-2023 Evaluation and management of inpatient Anusha Barber MD Work Phone: [facility] Comment on above: Infection and inflam matory reaction due to other internal joint prosthesis, initial encounter ([facility]) Start: 03-18-2023 End: 03-18-2023 Encounter identifier Madonna Cavanaugh Work Phone: [facility] Start: 03-17-2023 End: 03-17-2023 Encounter identifier Madonna Cavanaugh Work Phone: [facility] Start: 03-15-2023 End: 03-15-[address] ITALO ABERNATHY . Facility:[facility] Start: 02-09-2023 Registered Recurring DO Peter Sosa Work Phone: [facility] Work Phone: Start: 02-09-2023 End: 02-09-2023 ambulatory Reynaldo Trejo Other [employer] Other Start: 02-09-2023 Follow-up encounter Reynaldo Davisdiff [facility] Start: 01-26-2023 End: 01-26-2023 ambulatory Reynaldo Maya Other [employer] Other Start: 01-26-2023 Telephone encounter Reynaldo Maya [facility] Start: 01-07-2023 End: 01-08-[address] LEAH BARRERA Facility:[facility] Start: 01-06-2023 End: 01-06-2023 ambulatory Yuan Romeo Other [employer] Other Start: 01-06-2023 Office outpatient vi sit 15 minutes Yuan Romeo [facility] Start: 12-18-2022 End: 12-19-2022 ambulatory GIULIA PICHARDO . Facility:[facility] Start: 11-24-2022 End: 11-24-2022 Encounter identifier Anusha Barber Work Phone: [facility] Start: 11-20-2022 End: 11-20-2022 ambulatory Reynaldo Trejo Other [employer] Other Start: 11-20-2022 Telephone encounter Reynaldo Trejo Cassandra luis [facility] Start: 11-04-2022 End: 11-05-[address] VLAD OMALLEY Facility:[facility] Start: 10-24-2022 End: 02-07-[address] DAVIDSON SHAY Facility:[facility] Start: 10-23-2022 End: 10-23-2022 Postop follow up visit related to original px Anusha Barber MD [facility] Start: 10-23-2022 End: 10-23-2022 Encounter identifier Anusha Barber Work Phone: [facility] Start: 10-06-2022 End: 10-06-2022 Encounter identifier Anusha Barber Work Phone: [facility] Start: 10-02-2022 End: 10-02-2022 Encounter identifier Carlos Gomez Work Phone: [facility] Start: 10-02-2022 End: 10-06-2022 Evaluation and management of inpatient Anusha Barber MD Work Phone: [facility] Comment on above: Mechanical loosening of internal left knee prosthetic joint, subsequent encounter (Primary Dx) Start: 09-30-2022 End: 09-30-2022 ambulatory Mabel Ortega Other [employer] Other Start: 09-30-2022 Office outpatient vi sit 15 minutes Mabel Ortega [facility] Nephrology Start: 09-26-2022 End: 09-26-2022 Encounter identifier Kaur Constantino Work Phone: [facility] Start: 09-25-[address] Jude Sosa Facility: Start: 09-25-2022 Office outpatient vi sit 25 minutes Peter Sosa Work Phone: [facility] 250 DO Work Phone: Start: 09-23-2022 End: 09-24-2022 ambulatory MABEL ORTEGA Facility:[facility] Start: 09-19-2022 End: 09-19-2022 Encounter identifier Anusha Barber Work Phone: [facility] Start: 09-18-2022 End: 09-19-2022 ambulatory ELDA SIBLEY Facility:[facility] Start: 09-03-2022 End: 09-03-2022 Office outpatient visit 25 minutes Anusha Barber Work Phone: [facility] Start: 08-18-2022 End: 08-18-2022 ambulatory Reynaldo Trejo Other [employer] Other Start: 08-18-2022 Follow-up encounter Reynaldo [facility] Start: 08-05-2022 End: 08-05-2022 ambulatory Reynaldo Trejo Other [employer] Other Start: 08-05-2022 Telephone encounter Reynaldo sm[facility] Start: 08-04-2022 End: 08-04-2022 ambulatory Reynaldo Trejo Other [employer] Other Start: 08-04-2022 Telephone encounter Reynaldo sm[facility] Start: 07-09-2022 End: 07-09-2022 Office outpatient visit 15 minutes Anusha Barber Work Phone: [facility] Start: 07-01-2022 End: 07-01-2022 ambulatory Reynaldo Trejo Other [employer] Other Start: 07-01-2022 Follow-up encounter Reynaldo sm[facility] Start: 06-05-2022 End: 08-30-[address] PETER SOSA Facility:[facility] Start: 05-29-2022 End: 05-30-[address] PETER SOSA Facility:[facility] Start: 05-28-2022 End: 05-28-2022 ambulatory Yuan Romeo Other [employer] Other Start: 05-28-2022 Telephone encounter Yuan wood [facility] [place] Start: 05-27-2022 End: 05-27-2022 Emergency department patient visit DO Elda Sibley Work Phone: [facility] Start: 05-26-2022 End: 05-26-2022 Office outpatient visit 15 minutes Anusha Barber Work Phone: [facility] Start: 05-21-2022 End: 05-21-2022 Patient encounter procedure DO Elda Sibley Work Phone: [facility] [address] Start: 05-20-2022 End: 05-20-2022 ambulatory Reynaldo Trejo Other [employer] Other Start: 05-20-2022 Follow-up encounter Reynaldo sm[facility] Start: 05-20-2022 Registered Recurring DO Cedric Sibley Work Phone: [facility] Start: 05-13-2022 End: 05-13-2022 ambulatory ELDA SIBLEY Facility:[facility] Start: 05-12-2022 End: 05-12-2022 Office outpatient visit 25 minutes Anusha Barber Work Phone: [facility] Start: 05-08-2022 End: 05-09-[address] ANUSHA WHITESIDE Facility:[facility] Start: 04-29-2022 End: 04-30-[address] DOCTOR ESPINO Facility:[facility] Start: 04-25-2022 End: 04-26-[address] Lucinda DESAI Facility:[facility] Start: 04-24-2022 End: 04-25-[address] LUCÍA GRIMALDO . Facility:[facility] Start: 04-16-2022 End: 04-16-2022 ambulatory Reynaldo Trejo Other [facility] [employer] Other Start: 04-16-2022 Follow-up encounter Reynaldo sm[facility] Start: 04-16-2022 Registered Recurring DO Cedric Sibley Work Phone: [facility] Start: 04-15-2022 End: 04-15-2022 ambulatory Yuan Romeo Other [employer] Other Start: 04-15-2022 Office outpatient vi sit 15 minutes Yuan Romeo [facility] Start: 04-02-2022 End: 04-02-2022 ambulatory Azoliver Alicias Other [employer] Other Start: 04-02-2022 Office outpatient vi sit 15 minutes Aziz Bakhous [facility] Start: 04-01-2022 End: 04-02-[address] LAQUITA MEDINA Facility: Start: 04-01-2022 Rx Renewal Elda Lynn erer Work Phone: formerly [facility] 250 DO Work Phone: Start: 03-20-2022 End: 03-20-2022 ambulatory Reynaldo Trejo Other [employer] Other Start: 03-20-2022 Telephone encounter Reynaldo Trejo [facility] Start: 03-13-2022 End: 03-13-2022 ambulatory Mabel Alicias Other [employer] Other Start: 03-13-2022 Telephone encounter Mabel Alicias [facility] [place] Start: 03-04-2022 End: 03-04-2022 ambulatory Aziz Bakhous Other [employer] Other Start: 03-04-2022 Telephone encounter Azoliver Mcallisterhous [facility] Start: 02-27-2022 End: 02-27-2022 ambulatory Elda iSbley Other [employer] Other Start: 02-27-2022 Telephone encounter Elda Sibley [facility] Start: 02-10-2022 End: 02-10-2022 ambulatory Wes Jason Other [employer] Other Start: 02-10-2022 Telephone encounter Wes Jason [facility] Start: 02-05-2022 End: 02-05-2022 ambulatory Reynaldo Trejo Other [employer] Other Start: 02-05-2022 Follow-up encounter Reynaldo [facility] Start: 01-27-2022 End: 01-27-2022 ambulatory Elda Schwerer Other [employer] Other Start: 01-27-2022 Telephone encounter Elda Schwerer [facility] [place] Start: 01-22-2022 End: 01-22-2022 ambulatory Aziz Bakhous Other [employer] Other Start: 01-22-2022 Telephone encounter Aziz Bakhous [facility] Start: 01-09-2022 End: 01-09-2022 ambulatory Elda Schwerer Other [employer] Other Start: 01-09-2022 Telephone encounter Elda Schwerer [facility] [place] Start: 12-18-2021 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 Daphne Bryan Samantha y: Start: 12-11-2021 End: 12-11-2021 ambulatory Elda Schwerer Other [employer] Other Start: 12-11-2021 Telephone encounter Elda Schwerer [facility] [place] Start: 12-10-2021 End: 12-10-2021 ambulatory Reynaldo Trjeo Other [employer] Other Start: 12-10-2021 Telephone encounter Reynaldo [facility] Start: 12-03-2021 End: 12-03-2021 ambulatory Elda Schwerer Other [employer] Other Start: 12-03-2021 Telephone encounter Elda Schwerer [facility] [place] Start: 11-18-2021 End: 11-18-2021 ambulatory Kamrosa Jason Other [employer] Other Start: 11-18-2021 Telephone encounter Wes Jason [facility] Start: 11-05-2021 End: 11-05-2021 ambulatory Reynaldo Trejo Other [employer] Other Start: 11-05-2021 Follow-up encounter Reynaldo Trejo [facility] Start: 11-05-2021 Office outpatient vi sit 25 minutes Elda Schwerer [facility] [place] Start: 10-22-2021 End: 10-22-2021 ambulatory Marva Hunt Other [employer] Other Start: 10-22-2021 Telephone encounter Marva Hunt [facility] Start: 10-03-2021 End: 10-03-2021 ambulatory Elda Schwerer Other [employer] Other Start: 10-03-2021 Telephone encounter Elda Schwerer [facility] [place] Start: 10-01-[address] Martines And ana Sosa Facility: Start: 09-25-2021 End: 09-25-2021 ambulatory Laquita Medina Other [facility] Other Start: 09-25-2021 Office outpatient vi sit 15 minutes Essam Elrahel [facility] Start: 09-05-2021 End: 09-05-2021 ambulatory Elda Schwerer Other [employer] Other Start: 09-05-2021 Telephone encounter Elda Schwerer [facility] [place] Start: 08-16-2021 Telephone encounter Elda Schwerer [facility] [place] Start: 08-02-2021 Telephone encounter Elda Schwerer [facility] [place] Start: 07-31-2021 Telephone encounter Elda Schwerer [facility] [place] Start: 07-25-2021 Office outpatient vi sit 25 minutes Elda Lynnerer [facility] [place] Start: 07-11-2021 Follow-up encounter [facility] Start: 07-10-2021 Office outpatient vi sit 15 minutes Yuan Romeo [facility] Pulmonary Disease Start: 07-10-2021 Telephone encounter Elda Lynnmimi [facility] Start: 08-03-2018 End: 08-04-2018 Patient encounter ANUSHA BARBER Facility:[place] Start: 05-27-2018 End: 06-12-2018 Patient encounter ITALO ANN [facility] Start: 04-08-2018 End: 04-15-2018 Patient encounter ITALO ANN [facility] Start: 01-04-2018 End: 01-08-2018 Patient encounter ITALO ANN [facility] Start: 12-22-2017 End: 12-22-2017 Patient encounter ANUSHA BARBER Facility:[facility] Start: 07-21-2017 End: 07-27-2017 Patient encounter ITALO ANN [facility] Start: 06-30-2017 End: 07-07-2017 Patient encounter ITALO ANN [facility] Start: 06-17-2017 End: 06-28-2017 Patient encounter TROY DHILLON Facility:[facility] Echocardiogram normal [facility] Work Phone: Imaging result normal Elda E Schwerer Work Phone: [facility] 250 DO Work Phone: Procedures Date Procedure Procedure Detail Performing Clinician Start: 04-28-2025 End: 04-28-2025 Radiologic exam knee complete 4/more views Vlad Joel MD Work Phone: Start: 03-14-2025 AUDITORY FUNCTION TESTS Daphney VALLADARES Work Phone: Start: 01-24-2025 Us soft tissue head & neck real time imge docm Leah Barrera MD Work Phone: Start: 01-06-2025 End: 01-06-2025 Rhythm ecg 1-3 leads w/interpretation & report Unknown Provider Result Start: 01-05-2025 [address]IC METABOLIC PANE L W/ REFLEX TO MG FOR LOW K Danika Harrell [facility] Work Phone: Start: 01-05-2025 Blood count complete auto&auto difrntl wbc Danika Harrell [facility] Work Phone: Start: 01-05-2025 Rhythm ecg 1-3 leads w/interpretation & report Unknown Provider Result Start: 01-05-2025 Echo tthrc r-t 2d w/wom-mode compl spec&colr d Danika Harrell [facility] Work Phone: Start: 01-05-2025 Urinalysis microscopic only Danika Harrell [facility] Work Phone: Start: 01-05-2025 Urnls dip stick/tabl et rgnt auto w/o microscopy Danika Harrell [facility] Work Phone: Start: 01-05-2025 Radiologic exam ches t 2 views Danika Harrell [facility] Work Phone: Start: 01-05-2025 Fluoroscopy during operation Estrella Bryan MD Work Phone: Start: 01-05-2025 Rhythm ecg 1-3 leads w/interpretation & report Unknown Provider Result Start: 01-05-2025 GLUCOSE, WHOLE BLOOD Ry payal Bryan MD Work Phone: Start: 01-05-2025 Ecg routine ecg w/le ast 12 lds w/i&r Corinne Gunter [facility] Start: 11-14-2024 Cell count misc body fluids w/differential count Estrella Bryan MD Work Phone: Start: 11-14-2024 Crystal id light derrell roscopy luis tiss/any fluid Estrella Bryan MD Work Phone: Start: 05-25-2024 End: 05-25-2024 Arthrocentesis aspir&/inj major jt/bursa w/o us Kaur Pierre PA-C Start: 05-25-2024 End: 05-25-2024 Lidocaine injection Kaur Pierre PA-C Start: 03-23-2024 End: 03-23-2024 Radiologic examination knee 3 views Anusha Barber MD Start: 07-03-2023 End: 07-03-2023 Arthrocentesis aspir&/inj major jt/bursa w/o us Anusha Barber MD Start: 06-29-2023 End: 06-29-2023 Radiologic examination knee 3 views Anusha Barber MD Start: 03-25-2023 Sars-cov-2 detection by dna/rna Anusha Barber MD Work Phone: Start: 03-24-2023 PULSE OXIMETRY, CONTINUOUS Valeriano Squires MD Work Phone: Start: 03-23-2023 PULSE OXIMETRY, CONTINUOUS Valeriano Squires MD Work Phone: Start: 03-23-2023 PULSE OXIMETRY, CONTINUOUS Valeriano Squires MD Work Phone: Start: 03-22-2023 PULSE OXIMETRY, CONTINUOUS Valeriano Squires MD Work Phone: Start: 03-22-2023 PULSE OXIMETRY, CONTINUOUS Valeriano Squires MD Work Phone: Start: 03-21-2023 PULSE OXIMETRY, CONTINUOUS Valeriano Squires MD Work Phone: Start: 03-21-2023 POCT GLUCOSE BLOOD Mendel Barber MD Work Phone: Start: 03-21-2023 POCT GLUCOSE BLOOD Mendel Barber MD Work Phone: Start: 03-21-2023 PULSE OXIMETRY, CONTINUOUS Valeriano Squires MD Work Phone: Start: 03-21-2023 Basic metabolic pane l calcium total Valeriano Squires MD Work Phone: Start: 03-21-2023 CBC W Auto Different ial panel - Blood Valeriano Squires MD Work Phone: Start: 03-21-2023 POCT GLUCOSE BLOOD Mendel Barber MD Work Phone: Start: 03-20-2023 PULSE OXIMETRY, CONTINUOUS Valeriano Squires MD Work Phone: Start: 03-20-2023 POCT GLUCOSE BLOOD Mendel Barber MD Work Phone: Start: 03-20-2023 POCT GLUCOSE BLOOD Mendel Barber MD Work Phone: Start: 03-20-2023 POCT GLUCOSE BLOOD Mendel Barber MD Work Phone: Start: 03-20-2023 PULSE OXIMETRY, CONTINUOUS Valeriano Squires MD Work Phone: Start: 03-20-2023 Ecg routine ecg w/le ast 12 lds trcg only w/o i&r Valeriano Squires MD Work Phone: Start: 03-20-2023 POCT GLUCOSE BLOOD Mendel Barber MD Work Phone: Start: 03-20-2023 Basic metabolic pane l calcium total Valeriano Squires MD Work Phone: Start: 03-20-2023 CBC W Auto Different ial panel - Blood Valeriano Squires MD Work Phone: Start: 03-19-2023 POCT GLUCOSE BLOOD Mendel Barber MD Work Phone: Start: 03-19-2023 PULSE OXIMETRY, CONTINUOUS Valeriano Squires MD Work Phone: Start: 03-19-2023 Radiologic examinati on knee 1/2 views Kaur BURT Work Phone: Start: 03-19-2023 End: 03-19-2023 PULSE OXIMETRY, CONTINUOUS Valeriano goldman MD Work Phone: Start: 03-19-2023 POCT GLUCOSE BLOOD Mendel Barber MD Work Phone: Start: 03-19-2023 Level iv surg pathol ogy gross&microscopic exam Anusha Barber MD Work Phone: Start: 03-19-2023 End: 03-19-2023 Arthrt kne w/expl drg/rmvl fb Anusha Barber MD Start: 03-19-2023 History of operative procedure on knee S/P left knee surgery Anusha Barber MD Work Phone: Start: 03-19-2023 End: 03-19-2023 PA Incision Knee Joint For Infection Anusha Barber MD Start: 03-19-2023 End: 03-19-2023 PA Revise Knee Joint Replacement Anusha Barber MD Start: 03-19-2023 End: 03-19-2023 Revj total knee arthrp w/wo algrft 1 component Anusha Barber MD Start: 03-19-2023 Cell count misc body fluids w/differential count Anusha Barber MD Work Phone: Start: 03-19-2023 End: 03-19-2023 Culture bacterial any source anaerobic iso&id Anusha Barber MD Work Phone: Start: 03-19-2023 DIFFERENTIAL BODY FLUID Anusha Barber MD Work Phone: Start: 03-19-2023 End: 03-19-2023 INCISION DRAINAGE EXTREMITY LOWER Anusha Barber MD Work Phone: Start: 03-19-2023 End: 03-19-2023 REVISION KNEE TOTAL Anusha Barber MD Work Phone: Start: 03-19-2023 Basic metabolic pane l calcium total Valeriano Squires MD Work Phone: Start: 03-19-2023 CBC W Auto Different ial panel - Blood Valeriano Squires MD Work Phone: Start: 03-17-2023 End: 03-17-2023 Arthrocentesis aspir&/inj major jt/bursa w/o us Anusha Barber MD Start: 10-06-2022 End: 10-06-2022 Intermittent Compression Device - SELF PAY Anusha Barber MD Start: 10-06-2022 POCT GLUCOSE BLOOD Mendel Barber MD Work Phone: Start: 10-05-2022 POCT GLUCOSE BLOOD Mendel Barber MD Work Phone: Start: 10-05-2022 POCT GLUCOSE BLOOD Mendel Barber MD Work Phone: Start: 10-05-2022 POCT GLUCOSE BLOOD Mendel Barber MD Work Phone: Start: 10-05-2022 PULSE OXIMETRY, CONTINUOUS Anusha Sung DO Work Phone: Start: 10-04-2022 PULSE OXIMETRY, [...] Work Phone: Start: 10-03-2022 PULSE OXIMETRY, CONTINUOUS Doroteo Pineda DO Work Phone: Start: 10-03-2022 POCT GLUCOSE BLOOD Mendel Barber MD Work Phone: Start: 10-03-2022 Basic metabolic pane l calcium total Anusha Gomezlla DO Work Phone: Start: 10-02-2022 POCT GLUCOSE BLOOD Mendel Barber MD Work Phone: Start: 10-02-2022 PULSE OXIMETRY, CONTINUOUS Anusha Chacona DO Work Phone: Start: 10-02-2022 POCT GLUCOSE BLOOD Mendel Barber MD Work Phone: Start: 10-02-2022 PULSE OXIMETRY, CONTINUOUS Anusha Chacona DO Work Phone: Start: 10-02-2022 End: 10-02-2022 PA Revise Knee Joint Replacement Anusha Barber MD Start: 10-02-2022 End: 10-02-2022 Revj total knee arthrp w/wo algrft 1 component Anusha Barber MD Start: 10-02-2022 POCT GLUCOSE BLOOD Mendel Barber [...] dna/rna Anusha Barber MD Work Phone: Start: 09-26-2022 End: 09-26-2022 Physical therapy evaluation low complex 20 mins Anusha Barber MD Start: 09-26-2022 End: 09-26-2022 Therapeut actvity direct pt contact each 15 min Anusha Barber MD Start: 09-03-2022 End: 09-03-2022 Radex hip unilateral with pelvis 2-3 views Anusha Barber MD Start: 07-09-2022 End: 07-09-2022 Arthrocentesis aspir&/inj major jt/bursa w/o us Anusha Barber MD Start: 07-09-2022 End: 07-09-2022 Triamcinolone acet inj NOS Anusha goldman MD Start: 05-12-2022 End: 05-12-2022 Arthrocentesis aspir&/inj major jt/bursa w/o us Anusha Barber MD Start: 05-12-2022 End: 05-12-2022 Radiologic examination knee 3 views Anusha Barber MD Start: 02-08-2020 Echocardiography Start: 10-20-2017 Total colonoscopy Kaitl in E Schwerer Work Phone: Appendectomy Elda Holley Schwe rer Work Phone: Arthroplasty of knee Elda E Schwerer Work Phone: Comment on above: total bilateral; section Elda fontana Work Phone: Esophagogastrostomy, antesternal or antethoracic Elda E Schwerer Work Phone: Operative procedure on foot Elda E Schwerer Work Phone: Comment on above: tendonitis; Tonsillectomy and adenoidectomy Elda E Schwerer Work Phone: Urine culture DO Elda Tabitha werer Work Phone: Plan of Treatment Date Care Activity Detail Author Start: 2030 RSV VACCINE (1 - 1-d ose 75+ series) RSV VACCINE (1 - 1-dose 75+ series) [facility] Start: 01-05-2026 GFR test (Diabetes, CKD 3-4, OR last GFR 15-59) GFR test (Diabetes, CKD 3-4, OR last GFR 15-59) [employer] Start: 06-19-2025 Influenza vaccination [facility]ACC INE (#[facility] Start: 04-11-2025 Bacteria identified in Urine by Culture Urine Culture [facility] Start: 04-11-2025 Urine culture [facility] Start: 03-17-2025 End: 03-17-2025 Patient encounter procedure [facility] [place] Start: 03-14-2025 End: 03-14-2025 Patient encounter procedure 03/14/2025 3:00 PM EDT [facility] [address] [place] [id number] Daphney Constantino S, AUD [address] [facility] [place] [address] [facility] Start: 01-18-2025 End: 01-18-2025 Patient encounter procedure 01/18/2025 10:20 AM EDT Office Visit [facility] [address] [facility] [address] [place] [id number] Leah Barrera MD [address] [facility] [address] [place] [address] Arrived [facility] Comment on above: Arrived Start: 10-19-2024 Annual Wellness Visi t (Medicare Advantage) Annual Wellness Visit (Medicare Advantage) [employer] Start: 06-19-2024 COVID-19 Vaccine ( season) COVID-19 Vaccine ( season) [employer] Start: 05-25-2024 [facility] [place] Work Phone: Start: 05-25-2024 C reactive protein [Mass/volume] in Serum or Plasma C-Reactive Protein ([id number]), Added on: [facility] [place] Start: 03-25-2024 Falls Risk Assessment Falls Risk Ass essment [facility] Start: 03-21-2024 Hypertension/CHF/CAD Annual BMP Blood Test Hypertension/CHF/CAD Annual BMP Blood Test [facility] Start: 10-05-2023 Falls Risk Assessment Falls Risk Ass essment [facility] Start: 10-04-2023 Hypertension/CHF/CAD Annual BMP Blood Test Hypertension/CHF/CAD Annual BMP Blood Test [facility] Start: 09-25-2023 FUV, Provider: Luis Castanon, Status: Pen, Time: 11:20 AM FUV, Provider: Luis Castanon, Status: Pen, Time: 11:20 AM formerly [facility] [employer] 250 DO Work Phone: Start: 06-29-2023 C reactive protein [Mass/volume] in Serum or Plasma C-Reactive Protein, Quant ([id number]), Ordered on: [facility] Start: 06-29-2023 Erythrocyte sedimentation rate Sedimentation Rate-Westergren ([id number]), Ordered on: [facility] Start: 06-29-2023 CBC With Differential/Platelet ([id number]), Ordered on: [facility] [place] Start: 06-19-2023 Hemoglobin A1c measurement Diabetes: Hemoglobin A1C [facility] Start: 03-17-2023 Aspiration of knee, Left (), Added on: [facility] Start: 09-24-2022 FUV, Provider: Luis Castanon, Status: Pen, Time: 2:30 PM formerly [facility] [employer] 250 DO Work Phone: Start: 09-22-2022 Adolescent depressio n screening assessment Depression Screening [facility]ate [employer] Start: 09-22-2022 Hepatitis C screening Hepatitis C Sc reening Renate [employer] Start: 09-22-2022 Lipid panel Cholesterol Sc reening (Lipid Panel) [facility] Start: 09-22-2022 Medicare Annual Wellness Visit Medicare Annual Wellness Visit [facility] Start: 09-22-2022 Screening for malign ant neoplasm of breast Breast Cancer Screening [facility] Start: 09-22-2022 Screening for malign ant neoplasm of colon Colorectal Cancer Screening: Colonoscopy [facility] Start: 09-22-2022 Screening for osteoporosis Osteoporosis Screening (Bone Density Screening) [facility] Start: 09-22-2022 Social Influencers o f Health Screening Social Influencers of Health Screening [facility] Start: 09-19-2022 Patient referral Referrals: DME LTKA Rev [facility] [place] Start: 05-27-2022 End: 05-27-2022 Emergency department patient visit Departed Emergency [facility] Start: 05-13-2022 [facility] [place] Start: 09-25-2021 [facility] Work Phone: Start: 09-18-2021 [facility] Work Phone: Start: 03-21-2021 COVID-19 Vaccine (3 - Booster for Pfizer series) COVID-19 Vaccine (3 - Booster for Pfizer series) [facility] Start: 03-21-2021 COVID-19 Vaccine (3 - Pfizer series) COVID-19 Vaccine (3 - Pfizer series) [facility] Start: 2015 Respiratory Syncytia l Virus (RSV) or age 60 yrs+ (1 - Risk 60-74 years 1-dose series) Respiratory Syncytial Virus (RSV) or age 60 yrs+ (1 - Risk 60-74 years 1-dose series) [facility] Start: 2010 Screening for osteoporosis DEXA (modify frequency per FRAX score) [facility] Start: 2005 Shingles vaccine (1 of 2) Shingles vaccine (1 of 2) [facility] Start: 2005 Zoster vaccine hzv l junior for subcutaneous use ZOSTER (SHINGLES) VACCINE (1 of 2) [facility] Start: 2005 Zoster Vaccines (1 o f 2) Zoster Vaccines (1 of 2) [facility] Start: 2000 Screening for malign ant neoplasm of colon [facility] Start: 1995 Lipid panel LIPID SCREENING [facility] Start: 1995 Screening for malign ant neoplasm of breast [facility] Start: 1976 Screening for malign ant neoplasm of cervix CERVICAL CANCER SCREENING DISCUSSION [facility] Start: 1974 DTaP,Tdap,and Td Vaccines (1 - Tdap) DTaP,Tdap,and Td Vaccines (1 - Tdap) [facility] Start: 1974 DTaP/Tdap/Td vaccine (1 - Tdap) DTaP/Tdap/Td vaccine (1 - Tdap) [facility] Start: 1974 Third diphtheria, tetanus and acellular pertussis (DTaP) vaccination TDAP (ADULT) [facility] Start: 1974 Urine screening for protein Diabetes: Urine Protein Screening [facility] Start: 1973 Glaucoma screening Diabetic retinal exam [facility] Start: 1973 Hepatitis C screening Hepatitis C sc reen [facility] Start: 1973 Urine screening for protein Diabetic Alb to Cr ratio (uACR) test [facility] Start: 1967 Depression Screen Depression Screen [facility] Start: 1965 Diabetic foot examination Diabetic foot exam [facility] Start: 1965 Glaucoma screening Diabetes: R etinopathy Screening [facility] Start: 1965 Hemoglobin A1c measurement A1C test (Diabetic or Prediabetic) [facility] Start: 1965 Lipid panel Lipids [facility] Start: 1955 Hepatitis C screening HEPATITI S C VIRUS SCREENING [facility] Start: 1955 Medicare Annual Wellness (AWV) Medicare Annual Wellness (AWV) [facility] Start: 1955 Screening for malign ant neoplasm of colon [facility] Start: 1955 Screening for osteoporosis DEXA SCAN DISCUSSION [facility] Start: 1955 Tetanus vaccination TETANUS [facility] Comprehensive metabo lic 2000 panel - Serum or Plasma [facility] Work Phone: Crystals, Body Fluid Crystals, B tyler Fluid Lab Routine 11/14/2024 10:22 AM EST [facility] Work Phone: Culture, Anaerobic a nd Aerobic Culture, Anaerobic and Aerobic Microbiology Routine 11/14/2024 10:22 AM EST [facility] Ferritin [Mass/volum e] in Serum or Plasma [facility] Work Phone: Fungus identified in Skin by Culture [facility] Work Phone: Fungus identified in Skin by Culture [facility] Work Phone: Mycobacterium sp identified in Unspecified specimen by Organism specific culture [facility] Mycobacterium sp identified in Unspecified specimen by Organism specific culture [facility] Patient Education Urinary Tract Infection, Adult ED [facility] Work Phone: Patient referral [facility] Work Phone: Immunizations Immunization Date Immunization Notes Care Provider [facility] 08-10-2024 influenza virus vaccine, unspecified formulation Vlad Joel MD Work Phone: [facility] 08-07-2022 Fluad Quadrivalent 0 .5 ML Intramuscular Prefilled Syringe Peter Sosa Work Phone: [facility] 250 DO Work Phone: 01-24-2021 COVID-19 Vaccine Pfi zer - Documentation Purposes Only Yuan Romeo Other [facility] Comment on above: Series: 01-02-2021 COVID-19 Vaccine Pfi zer - Documentation Purposes Only Yuan Romeo Other [facility] Comment on above: Series: 08-23-2020 influenza, injectabl e, quadrivalent, preservative free Peter Sosa Work Phone: [facility] 250 DO Work Phone: 08-19-2020 influenza virus vaccine, unspecified formulation Elda E Schwerer Work Phone: [facility] 250 DO Work Phone: 08-19-2020 pneumococcal polysaccharide vaccine, 23 valent Yuan Ramsaydano Other [facility] 08-06-2020 Seasonal trivalent influenza vaccine, adjuvanted, preservative free Elda E Schwerer Work Phone: [facility] 250 DO Work Phone: 08-02-2019 Influenza, injectabl e, Madin Lindsya Canine Kidney, preservative free, quadrivalent Elda E Schwerer Work Phone: [place] [address] DO Work Phone: 08-02-2019 pneumococcal polysaccharide vaccine, 23 valent Elda E Schwerer Work Phone: [place] [address] DO Work Phone: 07-19-2019 influenza virus vaccine, unspecified formulation Elda E Schwerer Work Phone: [place] [address] DO Work Phone: 07-19-2019 influenza, seasonal, injectable Peter Sosa Work Phone: [place] [address] DO Work Phone: 07-19-2019 pneumococcal polysaccharide vaccine, 23 valent Christopher Agueda Other [facility] 07-19-2018 Influenza, injectabl e, Madin Hoven Canine Kidney, quadrivalent with preservative Elda E Schwerer Work Phone: [place] [address] DO Work Phone: 07-19-2018 pneumococcal conjuga te vaccine, 13 valent Christopher Agueda Other [facility] 08-20-2017 influenza, injectabl e, quadrivalent, preservative free Christopher Agueda Other [facility] 12-18-2011 pneumococcal polysaccharide vaccine, 23 valent Christopher Agueda Other [facility] Payers Date Payer Category Payer Medicare (Managed Care) MEDICARE [employer] HMO [id number] 2017 Medicaid [id number] 2008 Medicare 1959 Medicaid [id number] 1959 Medicare [id number] 2.16.840.1.275981.19 1955 Unknown [id number] 2.16.840.1.310387.3.579.2. 584 1955 Unknown [id number] 2.16.840.1.842370.3.579.2. 584 1955 Unknown [id number] 2.16.840.1.634039.3.579.2. 584 1955 Unknown [id number] 2.16.840.1.324928.3.579.2. 356 1955 Unknown [id number] 2.16.840.1.839364.3.579.2. 356 1955 Unknown [id number] 2.16.840.1.654583.3.579.2. 356 1955 Unknown [id number] 2.16.840.1.056453.3.579.2. 593 1955 Unknown [id number] 2.16.840.1.739132.3.579.2. 593 1955 Unknown [id number] 2.16.840.1.255293.3.579.2. 593 1955 Unknown [id number] 2.16.840.1.340333.3.579.2. 593 1955 Unknown [id number] 2.16.840.1.738635.3.579.2. 593 1955 Unknown [id number] 2.16.840.1.725115.3.579.2. 593 1955 Unknown [id number] 2.16.840.1.705117.3.579.2. 593 1955 Unknown [id number] 2.16.840.1.828207.3.579.2. 593 1955 Unknown [id number] 2.16.840.1.668107.3.579.2. 593 1955 Unknown [id number] 2.16.840.1.287692.3.579.2. 593 1955 Unknown [id number] 2.16.840.1.014671.3.579.2. 593 1955 Unknown [id number] 2.16.840.1.259926.3.579.2. 593 1955 Unknown [id number] 2.16.840.1.150416.3.579.2. 593 1955 Unknown [id number] 2.16.840.1.700326.3.579.2. 593 1955 Unknown [id number] 2.16.840.1.340501.3.579.2. 593 1955 Unknown [id number] 2.16.840.1.785204.3.579.2. 593 1955 Unknown [id number] 2.16.840.1.955530.3.579.2. 593 1955 Unknown [id number] 2.16.840.1.958187.3.579.2. 727 1955 Unknown [id number] 2.16.840.1.906679.3.579.2. 727 1955 Unknown [id number] 2.16.840.1.698224.3.579.2. 173 1955 Unknown [id number] 2.16.840.1.811050.3.579.2. 1259 1955 Unknown [id number] 2.16.840.1.370062.3.579.2. 1259 1955 Unknown [id number] 2.16.840.1.892621.3.579.2. 1259 1955 Unknown [id number] 2.16.840.1.952566.3.579.2. 594 1955 Unknown [id number] 2.16.840.1.924491.3.579.2. 594 1955 Unknown [id number] 2.16.840.1.046040.3.579.2. 594 1955 Unknown [id number] 2.16.840.1.897200.3.579.2. 594 1955 Unknown [id number] 2.16.840.1.481564.3.579.2. 727 Medicare [id number] Medicare [id number] 2.840.1.883870.19 Private Health Insurance [facility] [id number] Self-pay Self Pay [id number] Unknown Social History Date Type Detail Facility Start: 01-05-2025 End: 03-17-2025 No illicit drug use No illicit drug use [facility] Comment on above: 2 cups of coffee clay ly; Rarely; high school smoker; Rarely 1-2 times yea rly; Start: 01-05-2025 End: 03-17-2025 Sex Assigned At [employer] Start: 05-27-2022 End: 05-27-2022 Tobacco smoking status NHIS Ex-smoker (finding) [facility] Start: 1955 Sex Assigned At Female F [facility] History of tobacco use Current smoker [employer] History of tobacco use Cigarette Smoker [employer] Start: 10-02-2022 End: 03-19-2023 Alcohol intake Lifetime non-drinker (finding) [employer] Start: 1955 Sex Assigned At Not on file T [employer] Start: 09-22-2022 End: 03-18-2023 Exposure to SARS-CoV-2 (event) Not sure [employer] Start: 03-19-2023 End: 02-03-2024 Tobacco use and exposure Smokeless tobacco non-user [employer] Start: 03-23-2024 End: 06-06-2024 Tobacco smoking status NHIS Unknown if ever smoked [facility] Start: 03-23-2024 Alcohol intake Alcohol Use Details [facility] [place] Start: 11-09-2019 Sexual Orientation Straight or heterosexual [facility] Start: 09-25-2023 Sexual Orientation Choose not to dis close [facility] Start: 10-27-2024 End: 03-03-2025 Sex Female (finding) [facility] Start: 02-03-2024 End: 01-02-2025 Tobacco smoking status NHIS Never smoked tobacco [employer] Start: 01-05-2025 End: 03-17-2025 Alcoholic beverage intake Current drinker of alcohol (finding) [employer] Has the [employer], [employer], or water [employer] threatened to shut off services in your home in past 12Mo No [employer] How often to you hav e a drink containing alcohol? Monthly or less [employer] How many standard dr inks containing alcohol do you have on a typical day? 1 or 2 [employer] How often do you hav e 6 or more drinks on 1 occasion? Never [employer] (I/We) worried whetatiana er (my/our) food would run out before (I/we) got money to buy more. Never true [employer] In the past 12 month s, has lack of transportation kept you from medical appointments or from getting medications? No [facility] Start: 01-02-2025 Alcohol Comment Ocassionally [facility] [employer] Start: 02-03-2024 Alcohol Comment Occasionlly [facility] Procedure Code Equipment Code Equipment Origin al Text Equipment Identifier Dates Cps Artcsurf 16m m Lt 6-9 Ef - Sn/A - [id number])N/A, [id number] FDA Start: 10-02-2022 Asf Cps 18mm Ve L 6-9 - Sn/A - [id number]/A , [id number] FDA Start: 03-19-2023 Functional Status Date Assessment Result Facility [facility] Clinical Notes 07-10-2021 to 04-28-2025 Leonel Wharton MD - 04/28/2025 12:00 PM EDTMattnatalya Joel MD - 04/28/2025 12:00 PM Maryann Barrera MD - 03/17/2025 11:20 AM BLAINE Crocker - 03/14/2025 3:00 PM EDT Note Date & Type Note Facility 04-28-2025 History of Present illness Narrative Chief complaint: Chief Complaint Patient presents with Left Knee - Pain 69 y.o. female 2007 L TKAand 2021 L TKRevsion (Dr. Barber in [place]). Had a cat scratch infection in 2022 - currently on antibiotics. C/o anterior knee pain since 2021 revision. Also c/o of L hip pain - starts in low back and wraps around to anterior thigh. PT: Yes - for knee. Smoker: No, Diabetic: No. Blood Thinner: No HPI: This is a 69 y.o. pleasant female with the chief complaint of L-sided knee pain and back pain. The patient states since the revision in 2021, that she never got any prolonged relief. She states that she has continued to have pain and swelling in her knee. She has not had any noticeable redness and no drainage. Her pain is primarily in the anterior compartment of her knee. She does not ambulate with any assistive devices. She states that her pain is well controlled with the percocet 5mg and flexeril daily. She has had previous workup for infection in her left knee which was benign in October. She remains on doxycycline because of concern for infection of her left knee. She does not report any significant pain in her groin. She does endorse pain that starts in her low back and wraps around to her left anterior thigh. Her pain is managed as above by pain management. PMH: COPD, T2DM, CKD IV, HTN, currently on doxycycline PMH: she has no past medical history on file. PSH: she has no past surgical history on file. Allergies: she has no allergies on file. Medications: No outpatient medications prior to visit. No facility-administered medications prior to visit. SocHx: Social History Occupational History Not on file Tobacco Use Smoking status: Not on file Smokeless tobacco: Not on file Substance and Sexual Activity Alcohol use: Not on file Drug use: Not on file Sexual activity: Not on file FamHx: she family history is not on file. X-ray Interpretation: The patient received a standard set of films of the affected knee including a standing AP/Lat/PA flexion, and a sunrise view. XR L Knee: stable knee hardware XR L hip: some preserved joint space but decreased, mild/moderate degenerative changes Physical exam: -She is alert and oriented x3 and in no apparent distress. Skin is intact over the L knee as well as the L lower extremity with no abrasions, lacerations, or ulcerations. Upon evaluation of the patient's gait, she has a slightly antalgic gait with pain noted as well as a varus thrust. -Patient had no pain on palpation of medial/lateral joint line as well as pain. Pain with pressure over patella. her range of motion status exam was just shy of full extension to approximately 100 degrees of flexion. Audible click with rapid extension of knees bilaterally. -Her knee was stable to varus and valgus stress at extension and mid-flexion - better than R TKA -The patient had a neurovascularly intact left lower extremity with 5/5 EHL/tibialis anterior/gastroc. her sensation in her left lower extremity was intact to light touch. she also has an intact palpable dorsalis pedis and posterior tibial pulse in her left lower extremity. A/P This is a 69 y.o. pleasant female who sees me today with chief complaint chronic L knee pain. Discussed pathology with patient that based on XR and exam, her implants appear stable and examine well. In fact, her R TKA has greater instability, but this is asymptomatic and does not bother her in anyway. We did discuss that it appears a lot of her discomfort proximally appears to be coming from lumbar spine, as many aspects of hip exam are asymptomatic. Given exam, unlikely to improve symptoms of discomfort with a another revision surgery, so no operative management was recommended. Patient did have questions about why she is taking antibiotics, which a joint aspiration in November 14, 2024 appeared to have aseptic results. Patient was offered referral to [facility] infectious disease for second opinion, which patient is appreciate of. We will also repeat bloodwork today to evaluate for infection. Will consider re-aspiration pending lab results. Leonel Wharton MD Orthopaedic Surgery The patient was seen and evaluated with the resident at today's visit. I performed all essential elements of the history and physical exam at today's visit. I have confirmed the diagnosis at today's visit. I have determined the plan of care for today's visit. Please refer to the resident's note for further details from today's visit. I have reviewed the note following the visit have added edits as appropriate to my evaluation and plan of care. The diagnoses for today's visit include: Status post revision left total knee replacement with ongoing pain. The patient has a history of an infection in his currently on oral doxycycline for the last 2-3 years. She did have workup for infection which included an aspiration of her left total knee replacement which is revised. The fluid only had 126 white cells with no left shift. Cultures from the fluid were negative. The patient has had ongoing pain with his history of cat scratch in his on oral antibiotics still. I would like to repeat her workup for infection. We will obtain inflammatory markers and if those markers are elevated we will obtain fluid from her left knee to send for culture. I would also like to have her re-evaluated by our Infectious Disease personnel here to decide if there is any additional testing that we should be doing with the fluid or the blood work to determine if she still needs to be on antibiotics. She does have some mild flexion instability still after her revision which could be giving her some pain and swelling as well but given her history of infection we will rule that out 1st. Vlad Joel M.D. [employer] Adult Reconstructive Surgery Service Department of Orthopaedics [facility] documented in this encounter [facility] 03-17-2025 History of Present illness Narrative Subjective Patient ID: Renuka Graham is a 69 y.o. female who presents for Thyroid Nodule (Follow up ultrasound [facility] 01/24/25 ) and Ear Problem (Audio 03/14/25) Audio shows delfino moderate to severe SNHL and normal tymps. Pt requests referral to Dr Chase. Previously followed by in [place]. US shows a [id number] RT nodule compared to [id number] one year ago. Family History Adopted: Yes Active Ambulatory Problems Diagnosis Date Noted Thyroid nodule (CMS/HCC) 02/03/2024 LAD (lymphadenopathy) of left cervical region 02/03/2024 Abnormal results of cardiovascular function studies 03/03/2013 Acute renal insufficiency 02/03/2024 Allergic rhinitis 02/03/2024 Anemia 02/18/2012 Atrial septal defect within oval fossa 03/03/2013 Cellulitis 02/03/2024 Chronic combined systolic and diastolic congestive heart failure (CMS/HCC) 07/06/2017 Chronic right-sided congestive heart failure (CMS/HCC) 09/23/2023 CKD (chronic kidney disease), stage III (HCC) (CMS/HCC) 09/23/2023 COPD (chronic obstructive pulmonary disease) (CMS/HCC) 03/17/2023 Atherosclerosis of artery 02/03/2024 Coronary atherosclerosis (CMS/HCC) 03/03/2013 Cramps of left lower extremity 04/08/2018 Cramps, muscle, general 02/03/2024 DDD (degenerative disc disease), lumbar 02/03/2024 Dizziness 02/19/2012 Dyspnea on exertion 05/27/2018 Edema 09/23/2023 Localized edema 05/27/2018 Electrocardiogram abnormal 02/19/2012 Gastroesophageal reflux disease 07/06/2017 History of arthroplasty of left knee 02/03/2024 History of bariatric surgery 09/23/2023 History of total knee replacement 02/03/2024 S/P left knee surgery 03/19/2023 Hypotension 09/23/2023 Low blood pressure 02/19/2012 Infection and inflammatory reaction due to other internal joint prosthesis, initial encounter ([facility]) 03/21/2023 Iron deficiency anemia 02/03/2024 Lingual tonsil hypertrophy 02/03/2024 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 ([facility]) 10/02/2022 LPRD (laryngopharyngeal reflux disease) 02/03/2024 Morbid obesity ([facility]) 03/03/2013 Multinodular goiter ([facility]) 02/03/2024 Obesity, Class III, BMI 40-49.9 (morbid obesity) ([facility]) 06/30/2017 Obstructive sleep apnea syndrome 06/05/2016 Primary osteoarthritis of left hip 02/03/2024 Osteoarthritis of knee 02/03/2024 Pulmonary HTN ([facility]) 07/06/2017 Restrictive lung disease 07/06/2017 Sciatica 02/03/2024 Thrombophlebitis 02/03/2024 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 ([facility]) 02/03/2024 Thrombophlebitis of left leg ([facility]) 02/03/2024 Urinary tract infection 02/03/2024 Abdominal infection ([facility]) 02/03/2024 Viral syndrome 02/03/2024 Diabetes mellitus ([facility]) 01/18/2025 Essential hypertension ([facility]) 02/18/2012 Fibromyalgia 07/06/2017 Resolved Ambulatory Problems Diagnosis Date Noted No Resolved Ambulatory Problems Past Medical History: Diagnosis Date Anxiety Asthma CAD (coronary artery disease) ([facility]) CHF (congestive heart failure) ([facility]) Diabetes 1.5, 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[facility]) GERD (gastroesophageal reflux disease) Hoarseness HTN (hypertension) ([facility]) JEREMY (obstructive sleep apnea) Pulmonary hypertension ([facility]) PVD (peripheral vascular disease) ([facility]) Seasonal allergies Stage 4 chronic kidney disease (CMS/HCC) Vitamin D deficiency Past Surgical History: Procedure Laterality Date APPENDECTOMY CARDIAC CATHETERIZATION Mild CAD/PULM HTN-02/2013 CARDIAC CATHETERIZATION 03/05/2017 SECTION, CLASSIC COLONOSCOPY With polypectomy -02/[address] Mercado IR FINE NEEDLE ASPIRATION THYROID 02/25/2021 OTHER SURGICAL HISTORY Bilateral 02/22/2014 R/o toenails bilateral. STR CARDIAC STRESS/ECHO EFF30% LVH 05/2009 TENDON REPAIR TONSILLECTOMY TOTAL KNEE ARTHROPLASTY Left 12/25/2014 TOTAL KNEE ARTHROPLASTY Right 08/17/2017 Dr. Desai TOTAL KNEE ARTHROPLASTY Left 10/02/2022 Allergies Allergen Reactions Aspirin Hives, Rash and Shortness of breath Other Reaction(s): Unknown, Unknown Reaction, hives Latex Hives, Itching and Rash Other Reaction(s): Unknown, Wound Penicillins Hives, Itching, Rash and Shortness of breath Other Reaction(s): Unknown Sulfa Antibiotics Hives, Itching, Rash, Shortness of breath and Unknown Other Reaction(s): other Wound Dressing Adhesive Other Reaction(s): Wound bandaids Other Reaction(s): Unknown Ibuprofen Other Reaction(s): Other Cant take due to kidney failure Nickel Itching Sulfamethoxazole-Trimethoprim Other Reaction(s): Unknown Duloxetine Other Reaction(s): Unknown Reaction Nabumetone Other Reaction(s): Unknown, Unknown Reaction Semaglutide Other Reaction(s): dizziness, light headed, nausea Benzalkonium Chloride Rash Dial soap Furosemide Rash Other Reaction(s): Unknown Reaction Nylon Itching and Rash Patient states they are allergic to LOUIE hose Soap Rash dial Tramadol Other Reaction(s): Unknown Current Outpatient Medications on File Prior to Visit Medication Sig Dispense Refill albuterol (2.5 MG/3ML) 0.083% nebulizer solution Take 2.5 mg by nebulization every 4 (four) hours if needed albuterol HFA 90 mcg/act inhaler Inhale 2 puffs in the morning and 2 puffs in the evening and 2 puffs before bedtime. alendronate (Fosamax) 70 MG tablet Take 70 mg by mouth every 7 (seven) days allopurinol (Zyloprim) 100 MG tablet Take 100 mg by mouth in the morning and 100 mg before bedtime. bumetanide (Bumex) 0.5 MG tablet Take 0.5 mg by mouth in the morning and 0.5 mg before bedtime. cetirizine (ZyrTEC) 10 MG tablet Take 10 mg by mouth in the morning. cholecalciferol (Vitamin D-3) 25 MCG (1000 UT) capsule Take 25 mcg by mouth Daily ciprofloxacin (Cipro) 500 MG tablet Take 500 mg by mouth in the morning and 500 mg before bedtime. cyanocobalamin (Vitamin B-12) 1000 MCG/ML injection Inject 1,000 mcg under the skin every 30 (thirty) days cyclobenzaprine (Flexeril) 10 MG tablet Take 10 mg by mouth at bedtime Docusate Sodium (DSS) 100 MG capsule Take 100 mg by mouth as needed in the morning and 100 mg as needed in the evening. doxycycline (Vibramycin) 100 MG capsule erythromycin ethylsuccinate (E.E.S.) 400 MG tablet Take 400 mg by mouth in the morning and 400 mg before bedtime. pantoprazole (ProtoNix) 20 MG EC tablet Take 20 mg by mouth in the morning. Take before meals. polycarbophil (FiberCon) 625 MG tablet Take 625 mg by mouth every 8 (eight) hours temazepam (Restoril) 15 MG capsule Take 15 mg by mouth 1 (one) time topiramate (Topamax) 25 MG tablet Take 50 mg by mouth Daily valACYclovir (Valtrex) 1 g tablet Take 500 mg by mouth Daily No current facility-administered medications on file prior to visit. Objective Last Recorded Vitals Vitals: 03/17/25 1139 BP: 131/64 Pulse: 63 ENT Physical Exam Constitutional Appearance: patient appears well-developed, well-nourished and well-groomed, Communication/Voice: communication appropriate for developmental age; vocal quality normal; Assessment/Plan Diagnoses and all orders for this visit: Allergic rhinitis, unspecified seasonality, unspecified trigger Sensorineural hearing loss (SNHL), bilateral Nontoxic multinodular goiter (CMS/HCC) Pt will clearly benefit from delfino EDWARDS. Recommend pt ask Dr Sosa to send a referral to Dr Inderjit Chase to establish care with a new jas [facility]. Repeat US one year and then prn if stable. documented in this encounter [facility] 03-14-2025 History of Present illness Narrative History: Patient was referred for an audiological evaluation, reporting fullness in her ears. Pt suspects the issue is related to her allergies. Pt denies symptoms of ear pain or vertigo. She perceives seldom tinnitus. History is negative for noise exposure. Otoscopic Exam: Revealed ear canals were clear from excessive cerumen, bilaterally Pure Tone Audiometry Audio indicated a mild to severe sensorineural hearing loss, bilaterally. Speech Audiometry Right SRT = 35 dB and word discrimination score at 65 dBHL = 96% Left SRT = 40 dB and word discrimination score at 70 dBHL = 100% Tympanometry Normal tympanograms, bilaterally, indicating normal middle ear function Impressions: 1. Dr. Barrera 03-17-2025 documented in this encounter [facility] 01-18-2025 History of Present illness Narrative Subjective Patient ID: Renuka Graham is a 69 y.o. female who presents for Swollen Glands Pt reports her glands were swollen, but have gone down now. Also c/o a 1 yr h/o delfino ear fullness. Family History Adopted: Yes Active Ambulatory Problems Diagnosis Date Noted Thyroid nodule ([facility]) 02/03/2024 LAD (lymphadenopathy) of left cervical region 02/03/2024 Abnormal results of cardiovascular function studies 03/03/2013 Acute renal insufficiency 02/03/2024 Allergic rhinitis 02/03/2024 Anemia 02/18/2012 Atrial septal defect within oval fossa 03/03/2013 Cellulitis 02/03/2024 Chronic combined systolic and diastolic congestive heart failure (CMS/HCC) 07/06/2017 Chronic right-sided congestive heart failure (CMS/HCC) 09/23/2023 CKD (chronic kidney disease), stage III (HCC) (CMS/HCC) 09/23/2023 COPD (chronic obstructive pulmonary disease) ([facility]) 03/17/2023 Atherosclerosis of artery 02/03/2024 Coronary atherosclerosis ([facility]) 03/03/2013 Cramps of left lower extremity 04/08/2018 Cramps, muscle, general 02/03/2024 DDD (degenerative disc disease), lumbar 02/03/2024 Dizziness 02/19/2012 Dyspnea on exertion 05/27/2018 Edema 09/23/2023 Localized edema 05/27/2018 Electrocardiogram abnormal 02/19/2012 Gastroesophageal reflux disease 07/06/2017 History of arthroplasty of left knee 02/03/2024 History of bariatric surgery 09/23/2023 History of total knee replacement 02/03/2024 S/P left knee surgery 03/19/2023 Hypotension 09/23/2023 Low blood pressure 02/19/2012 Infection and inflammatory reaction due to other internal joint prosthesis, initial encounter ([facility]) 03/21/2023 Iron deficiency anemia 02/03/2024 Lingual tonsil hypertrophy 02/03/2024 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 ([facility]) 10/02/2022 LPRD (laryngopharyngeal reflux disease) 02/03/2024 Morbid obesity ([facility]) 03/03/2013 Multinodular goiter ([facility]) 02/03/2024 Obesity, Class III, BMI 40-49.9 (morbid obesity) ([facility]) 06/30/2017 Obstructive sleep apnea syndrome 06/05/2016 Primary osteoarthritis of left hip 02/03/2024 Osteoarthritis of knee 02/03/2024 Pulmonary HTN ([facility]) 07/06/2017 Restrictive lung disease 07/06/2017 Sciatica 02/03/2024 Thrombophlebitis 02/03/2024 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 ([facility]) 02/03/2024 Thrombophlebitis of left leg ([facility]) 02/03/2024 Urinary tract infection 02/03/2024 Abdominal infection ([facility]) 02/03/2024 Viral syndrome 02/03/2024 Diabetes mellitus ([facility]) 01/18/2025 Essential hypertension ([facility]) 02/18/2012 Fibromyalgia 07/06/2017 Resolved Ambulatory Problems Diagnosis Date Noted No Resolved Ambulatory Problems Past Medical History: Diagnosis Date Anxiety Asthma CAD (coronary artery disease) ([facility]) CHF (congestive heart failure) ([facility]) Diabetes 1.5, 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[facility]) GERD (gastroesophageal reflux disease) Hoarseness HTN (hypertension) ([facility]) JEREMY (obstructive sleep apnea) Pulmonary hypertension ([facility]) P[facility] ([facility]ipheral vascular disease) [facility] Seasonal allergies Stage 4 chronic kidney disease ([facility]) Vitamin D deficiency Past Surgical History: Procedure Laterality Date APPENDECTOMY CARDIAC CATHETERIZATION Mild CAD/PULM HTN-02/2013 CARDIAC CATHETERIZATION 03/05/2017 SECTION, CLASSIC COLONOSCOPY With polypectomy -02/[address] Mercado IR FINE NEEDLE ASPIRATION THYROID 02/25/2021 OTHER SURGICAL HISTORY Bilateral 02/22/2014 R/o toenails bilateral. STR CARDIAC STRESS/ECHO EFF30% LVH 05/2009 TENDON REPAIR TONSILLECTOMY TOTAL KNEE ARTHROPLASTY Left 12/25/2014 TOTAL KNEE ARTHROPLASTY Right 08/17/2017 Dr. Desai TOTAL KNEE ARTHROPLASTY Left 10/02/2022 Allergies Allergen Reactions Aspirin Hives, Rash and Shortness of breath Other Reaction(s): Unknown, Unknown Reaction, hives Latex Hives, Itching and Rash Other Reaction(s): Unknown, Wound Penicillins Hives, Itching, Rash and Shortness of breath Other Reaction(s): Unknown Sulfa Antibiotics Hives, Itching, Rash, Shortness of breath and Unknown Other Reaction(s): other Wound Dressing Adhesive Other Reaction(s): Wound bandaids Other Reaction(s): Unknown Ibuprofen Other Reaction(s): Other Cant take due to kidney failure Nickel Itching Sulfamethoxazole-Trimethoprim Other Reaction(s): Unknown Duloxetine Other Reaction(s): Unknown Reaction Nabumetone Other Reaction(s): Unknown, Unknown Reaction Semaglutide Other Reaction(s): dizziness, light headed, nausea Benzalkonium Chloride Rash Dial soap Furosemide Rash Other Reaction(s): Unknown Reaction Nylon Itching and Rash Patient states they are allergic to LOUIE hose Soap Rash dial Tramadol Other Reaction(s): Unknown Current Outpatient Medications on File Prior to Visit Medication Sig Dispense Refill albuterol (2.5 MG/3ML) 0.083% nebulizer solution Take 2.5 mg by nebulization every 4 (four) hours if needed albuterol HFA 90 mcg/act inhaler Inhale 2 puffs in the morning and 2 puffs in the evening and 2 puffs before bedtime. alendronate (Fosamax) 70 MG tablet Take 70 mg by mouth every 7 (seven) days allopurinol (Zyloprim) 100 MG tablet Take 100 mg by mouth in the morning and 100 mg before bedtime. bumetanide (Bumex) 0.5 MG tablet Take 0.5 mg by mouth in the morning and 0.5 mg before bedtime. cetirizine (ZyrTEC) 10 MG tablet Take 10 mg by mouth in the morning. cholecalciferol (Vitamin D-3) 25 MCG (1000 UT) capsule Take 25 mcg by mouth Daily ciprofloxacin (Cipro) 500 MG tablet Take 500 mg by mouth in the morning and 500 mg before bedtime. cyanocobalamin (Vitamin B-12) 1000 MCG/ML injection Inject 1,000 mcg under the skin every 30 (thirty) days cyclobenzaprine (Flexeril) 10 MG tablet Take 10 mg by mouth at bedtime Docusate Sodium (DSS) 100 MG capsule Take 100 mg by mouth 2 (two) times a day as needed erythromycin ethylsuccinate (E.E.S.) 400 MG tablet Take 400 mg by mouth in the morning and 400 mg before bedtime. pantoprazole (ProtoNix) 20 MG EC tablet Take 20 mg by mouth in the morning. Take before meals. polycarbophil (FiberCon) 625 MG tablet Take 625 mg by mouth every 8 (eight) hours temazepam (Restoril) 15 MG capsule Take 15 mg by mouth 1 (one) time topiramate (Topamax) 25 MG tablet Take 50 mg by mouth Daily valACYclovir (Valtrex) 1 g tablet Take 500 mg by mouth Daily [DISCONTINUED] albuterol HFA (Ventolin HFA) 90 mcg/act inhaler Inhale 1 puff every 4 (four) hours if needed [DISCONTINUED] cefdinir (Omnicef) 300 MG capsule Take 300 mg by mouth Daily [DISCONTINUED] diazePAM (Valium) 5 MG tablet Take 5 mg by mouth 1 (one) time [DISCONTINUED] phentermine 37.5 MG capsule Take 37.5 mg by mouth in the morning. Take before meals. No current facility-administered medications on file prior to visit. Objective Last Recorded Vitals Vitals: 01/18/25 1016 BP: 91/58 Pulse: 76 ENT Physical Exam Ear Hearing: intact; Auricles: right auricle normal; left auricle normal; External Mastoids: right external mastoid normal; left external mastoid normal; Ear Canals: right ear canal normal; left ear canal normal; Tympanic Membranes: right tympanic membrane normal; left tympanic membrane normal; Ear comments: Delfino tymp normal. Neck Neck: neck normal; neck palpation normal; Thyroid: thyroid normal; Assessment/Plan Diagnoses and all orders for this visit: ETD (Eustachian tube dysfunction), bilateral Ear fullness, bilateral Swollen gland Multinodular goiter (CMS/HCC) Pt's neck exam is normal. F/U when swollen. Ears look good and tymps normal. Audio and F/U. Due for thyroid US. Schedule at [facility] documented in this encounter [facility] 01-06-2025 History of Present illness Narrative Progress Note Subjective: Patient resting comfortably in bed. Minimal change in left hip pain since injection. Mild tenderness to injection site. Denies chest pain, SOB, nausea, lightheadedness, calf pain, or numbness/tingling in her toes and feet. Objective: VITALS: BP (!) 127/57 Pulse 66 Temp 97.7 F (36.5 C) (Temporal) Resp 18 Ht 1.6 m (5' 2.99 ) Wt 97.1 kg (214 lb) SpO2 97% BMI 37.92 kg/m 24HR INTAKE/OUTPUT: Intake/Output Summary (Last 24 hours) at 01/06/2025 0647 Last data filed at 01/06/2025 0604 Gross per 24 hour Intake 1646.8 ml Output 2550 ml Net -903.2 ml TEMPERATURE: Current - Temp: 97.7 F (36.5 C); Max - Temp Av.7 F (36.5 C) Min: 97 F (36.1 C) Max: 98.4 F (36.9 C) RESPIRATIONS RANGE: Resp Av.7 Min: 13 Max: 20 PULSE RANGE: Pulse Av.7 Min: 50 Max: 66 BLOOD PRESSURE RANGE: Systolic (24hrs), Av , Min:82 , Max:127 ; Diastolic (24hrs), Av, Min:28, Max:74 PULSE OXIMETRY RANGE: SpO2 Av.7 % Min: 91 % Max: 98 % General: alert, appears stated age, cooperative, and no distress DVT Exam: No evidence of DVT seen on physical exam. Negative Gio's sign. No cords or calf tenderness. No significant calf/ankle edema. NVI in lower extremity. Thigh with minimal edema and remains soft. Moving foot and ankle. Data Review CBC: Lab Results Component Value Date/Time WBC 4.4 01/05/2025 03:30 PM RBC 3.94 01/05/2025 03:30 PM HGB 11.2 01/05/2025 03:30 PM HCT 35.2 01/05/2025 03:30 PM PLT 171 01/05/2025 03:30 PM BMP: Lab Results Component Value Date/Time NA 141 01/05/2025 03:30 PM K 4.1 01/05/2025 03:30 PM CL 109 01/05/2025 03:30 PM CO2 23 01/05/2025 03:30 PM BUN 19 01/05/2025 03:30 PM CREATININE 1.0 01/05/2025 03:30 PM GLUCOSE 166 01/05/2025 03:30 PM Assessment: S/p left hip intra-articular CSI; postop hypotension Plan: Hospitalist consulted for medical management Ortho stable for discharge pending ECHO results. WBAT and activity as tolerated to left LE Follow up in office as scheduled in February] Patient care discussed with Araceli Edwards PA-C. Agree with assessment and plan. Estrella Bryan MD Orthopaedic Surgeon Orthopaedic [facility] 01/06/2025 11:41 AM Patient A&O x4, calm, and cooperative. Vital signs and head to toe assessment completed at this time, see flowsheets for details. Patient was briefly educated on medications due tonight. Patient denies needs at this time. Call light within reach. Bedside table within reach, bed in lowest position, bed/chair wheels locked, and alarm is set. Care ongoing. RESPIRATORY ASSESSMENT PROTOCOL Patient Name: Renuka Graham Room#: [id number] : 1955 Admitting diagnosis: Left hip pain [M25.552] Hypotension after procedure [I95.81] Medical History: Past Medical History: Diagnosis Date Abdominal infection (HCC) Acute renal insufficiency Anxiety Asthma Atherosclerosis of artery CAD (coronary artery disease) Cellulitis Chronic right-sided CHF 09/23/2023 COPD (chronic obstructive pulmonary disease) (HCC) Cramps, muscle, general DDD (degenerative disc disease), lumbar Diabetes mellitus (HCC) Edema Fibromyalgia GERD (gastroesophageal reflux disease) Hx of bariatric surgery Hx of blood clots Hx of total knee arthroplasty, left Hypertension Hypotension 09/23/2023 Infection and inflammatory reaction due to other internal joint prosthesis, initial encounter Iron deficiency anemia LAD (lymphadenopathy) of left cervical region Lingual tonsil hypertrophy LPRD (laryngopharyngeal reflux disease) Multinodular goiter Multinodular goiter Obstructive sleep apnea Primary osteoarthritis of left hip Pulmonary hyperinflation PVD (peripheral vascular disease) 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 (HCC) S/P left knee surgery Sciatica Seasonal allergies Stage 4 chronic kidney disease (HCC) Thrombophlebitis of left leg Thyroid Nodule 02/03/2024 UTI (urinary tract infection) Viral syndrome Vitamin D deficiency PATIENT ASSESSMENT LABORATORY DATA Hematology: Lab Results Component Value Date/Time WBC 4.4 01/05/2025 03:30 PM RBC 3.94 01/05/2025 03:30 PM HGB 11.2 01/05/2025 03:30 PM HCT 35.2 01/05/2025 03:30 PM PLT 171 01/05/2025 03:30 PM Chemistry: No results found for: PHART , MXT3XIQ , PO2ART , E9TKJJAX , GNG4VUB , PBEA , NBEA VITALS Pulse: 51 Respirations: 20 BP: (!) 102/56 SpO2: 96 % O2 Device: None (Room air) Temp: 98.4 F (36.9 C) SKIN COLOR [x] Normal [] Pale [] Dusky [] Cyanotic RESPIRATORY PATTERN [x] Normal [] Dyspnea [] Alexy-Estrada [] Kussmaul [] Biots AMBULATORY [] Yes [] No [x] With Assistance Patient Acuity 0 1 2 3 4 Score Level of Consciousness (LOC) [x] Alert & Oriented or Pt normal LOC [] Confused;follows directions [] Confused & uncooper-ative [] Obtunded [] Comatose 0 Respiratory Rate (RR) [x] Reg. rate & pattern. 12 - 20 bpm [] Increased RR. Greater than 20 bpm [] SOB w/ exertion or RR greater than 24 bpm [] Access- ory muscle use at rest. Abn. resp. [] SOB at rest. 0 Bilateral Breath Sounds (BBS) [x] Clear [] Diminish-ed bases [] Diminish-ed t/o, or rales [] Sporadic, scattered wheezes or rhonchi [] Persistentwheezes and, or absent BBS 0 Cough [x] Strong, effective, & non-prod. [] Effective & prod. Less than 25 ml (2 TBSP) over past 24 hrs [] Ineffective & non-prod to less than 25 ML over past 24 hrs [] Ineffective and, or greater than 25 ml sputum prod. past 24 hrs. [] Nonspon- taneous; Requires suctioning 0 Pulmonary History (PULM HX) [] No smoking and no chronic pulmonary history [] Former smoker. Quit over 12 mos. ago [] Current smoker or quit w/ in 12 mos [x] Pulm. History and, or 20 pk/yr smoking hx [] Admitted w/ acute pulm. dx and, or has been admitted w/ pulm. dx 2 or more times over past 12 mos 3 Surgical History this Admit (SURG HX) [] No surgery [x] General surgery [] Lower abdominal [] Thoracic or upper abdominal [] Thoracic w/ pulm. disease 1 Chest X-Ray (CXR)/CT Scan [x] Clear or not applicable [] Not available [] Atelectasis or pleural effusions [] Localized infiltrate or pulm. edema [] Con-solidated Infiltrates, bilateral, or in more than 1 lobe 0 TOTAL ACUITY: 4 CARE PLAN If Acuity Level is 2, 3, or 4 in any of the following: [] BILATERAL BREATH SOUNDS (BBS) [x] PULMONARY HISTORY (PULM HX) [] Respiratory Rate (RR) Goal: Improve respiratory functions in patients with airway disease and decrease WOB [x] AEROSOL PROTOCOL Total Acuity: 14-28 [] Secondary Assessment in 24 hrs Total Acuity: 9-13 [] Secondary Assessment in 24 hrs Total Acuity: 4-8 [x] Secondary Assessment in 24 hrs Total Acuity: 0-3 [] Secondary Assessment in 48 hrs HHN AEROSOL THERAPY with [physician-ordered bronchodilator(s)] q 4 & Albuterol PRN q2 hrs. Breath-Actuated Neb if BBS Acuity = 4, and pt. can use MP. Notify physician if condition deteriorates. HHN AEROSOL THERAPY with [physician-ordered bronchodilator(s)] QID and Albuterol PRN q4 hrs. Breath-Actuated Neb if BBS Acuity = 4, and pt. can use MP. Notify physician if condition deteriorates. MDI THERAPY with 2 actuations of [physician-ordered bronchodilator(s)] via spacer TID Albuterol and PRN q4 hrs. If unable to utilize MDI: HHN [physician-ordered bronchodilator(s)] TID and Albuterol PRN q4 hrs. Notify physician if condition deteriorates. MDI THERAPY with [physician-ordered bronchodilator(s)] via spacer TID PRN. If unable to utilize MDI: HHN [physician-ordered bronchodilator(s)] TID PRN. Notify physician if condition deteriorates. If Acuity Level is 2, 3, or 4 in any of the following: [] COUGH [] SURGICAL HISTORY (SURG HX) [] CHEST XRAY (CXR) Goal: Improvement in sputum mobilization in patients with ineffective airway clearance. Reverse atelectasis. [] Bronchopulmonary Hygiene Protocol Total Acuity: 14-28 [] Secondary Assessment in 24 hrs Total Acuity: 9-13 [] Secondary Assessment in 24 hrs Total Acuity: 4-8 [] Secondary Assessment in 24 hrs Total Acuity: 0-3 [] Secondary Assessment in 48 hrs METANEB QID with [physician-ordered bronchodilator(s)] if CXR Acuity = 4; otherwise: PD&P, Oscillatory Therapy, or Vest QID & PRN AND PEP QID & PRN NT Sxn PRN for ineffective cough METANEB QID with [physician-ordered bronchodilator(s)] if CXR Acuity = 4; otherwise: PD&P, Oscillatory Therapy or Vest QID & PRN AND PEP QID & PRN NT Sxn PRN for ineffective cough PD&P, Oscillatory Therapy, or Vest TID & PRN AND PEP TID & PRN Instruct patient to self-perform IS q1hr WA If Acuity Level is 2 or above in the following: [] PULMONARY HISTORY (PULM HX) Goal: Assist patient in quitting smoking to slow or stop the progression of lung disease. [] Smoking Cessation Protocol SMOKING CESSATION EDUCATION provided according to policy RT_201: (valeriano with an X) ____Yes ____ No ____ NA Smoking Cessation Booklet given: ____Yes ____No ____Patient Refused Explained policies and procedure of an echocardiogram/Doppler study. TTE performed at bedside Patient from xray per wheelchair Patient when to xray per wheelchair. Consults to Dr Elias and Danika Mera for bradycardia and hypotension. Patient to 333 per stretcher, report received from Kaylee and Rocío, patient sleepy but easily arrousable, assessment and vitals initiated, patient instructed continuous improvement engineer light use and available to patient, patient denies pain, 2L/min O2 nasal cannula,bed alarm on, Discharge Criteria Inpatients must meet Criteria 1 through 7. All other patients are either YES or N/A. If a NO is chosen then Anesthesia or Surgeon must be notified. 1. Minimum 30 minutes after last dose of sedative medication. Yes 2. Systolic BP between 90 - 160. Diastolic BP between 60 - 90. No Providers aware; pt admitted for hypotension/bradycardia. 3. Pulse between 60 - 120 No Providers aware; pt admitted for hypotension/bradycardia. 4. Respirations between 8 - 25. Yes 5. SpO2 92% - 100%. Yes 6. Able to cough and swallow or return to baseline function. Yes 7. Alert and oriented or return to baseline mental status. Yes Dr. Bryan updated on patient being admitted for [address] Dawkins at bedside. Have been at patient's bedside d/t postoperative hypotension. Patient bradycardic/hypotensive upon assessment. Was placed on 2L NC for SpO2 dropping to 88% while sleeping. Asymptomatic other than lethargy. Denies SOB/CP. 500 IVF given so far between intra-op and postop course. Fluids remain open. 5mg IV ephedrine given. SBP increased from high 80s/low90s to 100s briefly following intervention. 12 lead EKG obtained as well and left message with Dr. Dawkins's office asking for him to evaluate patient. Waiting to hear back. Pt has been hypotensive, bradycardic and drowsy post operatively. Anesthesia notified and remained at bedside; orders received. EKG performed; bedside 3 lead EKG monitoring initiated. EKG and medical clearance received from Dr Sosa, patient's pcp. Both and prior EKG from 2022 were reviewed with anesthesia. Okay to proceed. Patient's PCP-Dr Sosa calls PAT. States he is willing to do another EKG and after review of that he would be willing to clear patient. Case was discussed with HUAN Smith. Patient will need an updated EKG or do the procedure under a local. Dr Bryan's office was contacted and Rocío (Dr. Bryan's MA) states Dr Bryan will do these procedures under a local, but it is generally the patient asking for the anesthesia. Patient was contacted by public relations writer. Patient does have a helicopter pilot instructor (Dr Castanon), but it has been more than a year since she was seen them. We discussed mac vs local and patient unsure of what she wants to do. She states she was on her way to her PCP appointment and would like to discuss this with her PCP. She states she will call back. Patient instructed on the pre-operative, intra-operative, and post-operative process. Patient instructed on NPO status. Medication instructions and pre operative instruction sheet reviewed with the patient. Patient can take her gabapentin, topiramate, pantoprazole and allopurinol with a small sip of water the morning of her procedure, prior to arrival to the hospital. Attempted PAT phone call; no answer; message left to return PAT phone call. Patient informed that I have no information on her in our system. I requested she gather up her medical history, medications, allergies and such then call me back. documented in this encounter [facility] 01-05-2025 Hospital Discharge instructions Kaylee Esqueda RN - 01/05/2025 7:43 AM EDT SAME DAY SURGERY DISCHARGE INSTRUCTIONS 1. Do not drive or operate hazardous machinery for 24 hours. 2. Do not make important personal or business decisions for 24 hours. 3. Do not drink alcoholic beverages for 24 hours. 4. Do not smoke tobacco products for 24 hours. 5. Eat light foods (Jell-O, soups, etc....) and drink plenty of fluids (water, Sprite, etc...) up to 8 glasses per day, as you can tolerate. 6. If your bandages become soaked with bright red blood, place another dressing pad over your bandages. (DO NOT remove original bandage.) Call your surgeon for further instructions. A small amount of bright red blood is to be expected. 7. Limit your activities for 24 hours. Do not engage in heavy work until your surgeon gives you permission. 8. Patient should not be left alone for 12-24 hours following surgical procedure. 9. Report the following signs or any questions regarding your physical condition to your surgeon immediately: Excessive swelling of, or around the wound area. Redness. Temperature of 100 degrees (F) or above. Excessive pain. 10. Call your surgeon for any questions regarding your surgery. 11. Wash hands before and after incision care. It is important to practice good personal hygiene during the post op period. WBAT to affective extremity Activity as tolerated - No restrictions Remove bandage this afternoon Rocío Whiteside RN - 01/06/2025 9:53 AM EDT As tolerated Rocío Whiteside RN - 01/06/2025 9:58 AM EDT Good nutrition is important when healing from an illness, injury, or surgery. Follow any nutrition recommendations given to you during your hospital stay. If you were given an oral nutrition supplement while in the hospital, continue to take this supplement at home. You can take it with meals, in-between meals, and/or before bedtime. These supplements can be purchased at most local grocery stores, pharmacies, and chain [employer]-stores. If you have any questions about your diet or nutrition, call the hospital and ask for the dietitian. General diet documented in this encounter [facility] 06-01-2024 Note Progress Note-Darcie joshi Patient: RENUKA GRAHAM Age: 68 years Sex: Female : 1955 Associated Diagnoses: None Author: Vlad Loera DO Postoperative Information Postoperative disposition: Postoperative [...] 120 tab(s), Refills(s) 0, Pharmacy: [facility] Documented Medications Documented Fiber Tabs: 1 tab, [...] Refills(s) 0, Prophylaxis fluticasone 0.05 mg/inh Nasal [place]: 2 spray(s), Nasal, Daily, Refill(s) 0, Allergy [...] tab, Oral, Daily fluticasone 0.05 mg/inh Nasal [place] 2 spray(s), Nasal, Daily gabapentin 300 mg [...] CHF (congestive heart failure) / SNOMED CT 47076583 / Confirmed COPD (chronic obstructive pulmonary disease) / SNOMED CT 50157759 / Confirmed Hypertension / SNOMED CT 4939233758 / Confirmed Kidney failure / SNOMED CT 96736471 / Confirmed Physical Examination Vital Signs 06/01/2024 [...] % % 06/01/2024 12:40 EDT Heart Rate Mon (more content not included)... [facility] Comment on above: Result Comment: Elec tronically Signed By: Vlad Loera DO\.br\Date and Time Signed: 06/01/24 13:29 EDT 06-01-2024 Note Patient Education - Text Endoscopy Care After [...] blood. Document Released: 05/19/2005 Document Re-Released: 03/29/2007 [facility] Patient Information ?2009 [email or web address]. Colonoscopy Care After Surgery Please read the [...] inside the colon so that bowel contents c (more content not included)... [facility] 06-01-2024 Note Endoscopic Procedure Report - Other Patient: RENUKA GRAHAM Age: 68 years Sex: Female : 1955 Associated Diagnoses: None Author: Glen Bejarano MD Pre-Procedure Procedure Date 06/01/2024 13:10:00 . Procedure Type: Colonoscopy. Procedure provider Performed by Glen Bejarano MD. Current history and physical Documented on chart. Reviewed. EGD (esophagogastroduodenoscopic) electrohydraulic lithotripsy of bezoar in stomach (7036502245) on 06/15/2019 at 63 Years. Colonoscopy ([id number]) on 08/02/2018 at 63 Years. Appendicectomy (977092316). Tonsillectomy (921164463). Gastric bypass (4842736683). Both knees (20142478). Tendonitis of left ankle (039813109986398). Caesarean section ().. Past Medical History No active or resolved past medical history items have been selected or recorded.. Family History Patient was adopted. History is unknown.. Procedure History EGD (esophagogastroduodenoscopic) electrohydraulic lithotripsy of bezoar in stomach (0756162226) on 06/15/2019 at 63 Years. Colonoscopy ([id number]) on 08/02/2018 at 63 Years. Appendicectomy (036768969). Tonsillectomy (039023768). Gastric bypass (2400287059). Both knees (77293252). Tendonitis of left ankle (733922197756822). Caesarean section ().. Colorectal neoplasm risk assessment [...] QID, # 120 tab(s), Refills(s) 0, Pharmacy: [facility] Documented Medications Documented Fiber Tabs: 1 tab, [...] Refills(s) 0, Prophylaxis fluticasone 0.05 mg/inh Nasal [place]: 2 spray(s), Nasal, Daily, Refill(s) 0, Allergy [...] otherwise normal colonic mucosa Images Procedure images: [id number]_hd_video_[id number]___[id number]. jpg Rec1_hd_video_2023___15 (more content not included)... [facility] Comment on above: Result Comment: Elec tronically Signed By: Glen Bejarano MD\.br\Date and Time Signed: 06/01/24 13:11 EDT Other Comment: Jessica ng Attachment - attachment storage system not supported [id number] Can be viewed in source system Missing Attachment - attachment storage system not supported [id number] Can be viewed in source system Missing Attachment - attachment storage system not supported [id number] Can be viewed in source system Missing Attachment - attachment storage system not supported [id number] Can be viewed in source system Missing Attachment - attachment storage system not supported 5828638 Can be viewed in source system Missing Attachment - attachment storage system not supported [id number] Can be viewed in source system Missing Attachment - attachment storage system not supported 8435213 Can be viewed in source system Missing Attachment - attachment storage system not supported 7801109 Can be viewed in source system 06-01-2024 Note Endoscopic Procedure Report - Other Patient: RENUKA [...] examined esophagus. Empiric dilation with Delcid 54 Thai was done, no mucosal disruption was noted afterwards 2. Evidence of surgery in the stomach with Joellen-en-Y anatomy, normal anastomosis, minimal patchy erythema in the gastric pouch, otherwise normal gastric pouch. Random biopsies were taken to rule out H. pylori 3. Normal examined efferent jejunal loop, advanced about 10 cm Images Procedure images: [id number]_hd_video_2023__[id number]. jpg Rec1_hd_video_2023__[id number]. jpg Rec1_hd_video_2023__[id number]. jpg Rec1_hd_video_2023__[id number]. jpg . Post-Procedure Complications: none. Estimated blood loss: Minimal. Specimens: sent to pathology, None. Devices/ implants: none left in place. Impression and Plan 1. Esophageal landmarks identified, normal examined esophagus. Empiric dilation with Delcid 54 Thai was done, no mucosal disruption was noted [...] results, follow-up in GI clinic next available [facility] Comment on above: Result Comment: Elec trosampsonally Signed By: Darci BRYANT, Glen Ta\.br\Date and Time Signed: 06/01/24 12:35 EDT Other Comment: Jessica batres Attachment - attachment storage system not supported [id number] Can be viewed in source system Missing Attachment - attachment storage system not supported [id number] Can be viewed in source system Missing Attachment - attachment storage system not supported 9172425 Can be viewed in source system Missing Attachment - attachment storage system not supported 8052692 Can be viewed in source system Missing Attachment - attachment storage system not supported 5480814 Can be viewed in source system Missing Attachment - attachment storage system not supported 7038863 Can be viewed in source system Missing Attachment - attachment storage system not supported 8791880 Can be viewed in source system Missing Attachment - attachment storage system not supported 1698414 Can be viewed in source system 06-01-2024 Note Progress Note-Darcie joshi Patient: RENUKA GRAHAM Age: 68 years Sex: Female : 1955 Associated Diagnoses: None Author: Vlad Loera DO Preoperative Information Anesthesia history: Patient history: None. Family history+: None. Anesthesia results Informed consent: Signed by patient. Including risks, benefits, and alternatives related to the: Anesthetic plan, Postoperative pain management plan. Re-evaluation prior to induction: Vlad Loera DO. Health Status Allergies: Allergic Reactions [...] # 120 tab(s), Refills(s) 0, Pharmacy: [facility] Documented Medications Documented Fiber Tabs: 1 tab, [...] Refills(s) 0, Prophylaxis fluticasone 0.05 mg/inh Nasal [place]: 2 spray(s), Nasal, Daily, Refill(s) 0, Allergy [...] tab, Oral, Daily fluticasone 0.05 mg/inh Nasal [place] 2 spray(s), Nasal, Daily gabapentin 300 mg [...] CHF (congestive heart failure) / SNOMED CT 10212009 / Confirmed COPD (chronic obstructive pulmonary disease) / SNOMED CT 76497654 / Confirmed Hypertension / SNOMED CT 3986616819 / Confirmed Kidney failure / SNOMED CT 29822673 / Confirmed, Active Problems (4) CHF (congestive heart failure) COPD (chronic obstructive pulmonary disease) Hypertension Kidney failure Histories Past Medical History: No active or resolved past medical history items have been selected or recorded. Family History: Patient was adopted. History is unknown. Procedure history: EGD (esophagogastroduodenoscopic) electrohydr (more content not included)... [facility] Comment on above: Result Comment: Elec tronically Signed By: Vlad Loera DO\.br\Date and Time Signed: 06/01/24 11:29 EDT 11-03-2023 Evaluation note Encounter Date Diagnosis Assessment Notes Oct, Asthma, moderate persistent (ICD-10 - J45.40) [facility] Other 09-19-2023 Evaluation note* Encounter Date Diagnosis Assessment Notes Treatment Notes Treatment Clinical Notes Jun, Asthma, moderate persistent (ICD-10 - J45.40) Jun, Morbid obesity (ICD-10 - E66.01) Jun, JEREMY (obstructive sleep apnea) (ICD-10 - G47.33) Jun, Allergic rhinitis (ICD-10 - J30.9) Jun, GERD (gastroesophageal reflux disease) (ICD-10 - K21.9) [facility] Other 06-07-2023 History of Present illness Narrative* Jocelyn Muller RN - 03/25/2023 2:44 PM EDT Verbal report called and provided to receiving nurse, MARIBELL Alford at [facility]. Patient's current status and most recent vital [...] Pt. met goals for [facility] a [facility] facility. Discussed with thepatient the last pain medication and when the next dose is due. Pt. received written discharge instruction packet to be taken to the penitentiary facility. Pt. is discharged per the general medical doctor and the surgeon orders. Patient left in a personal vehicle to be driven to the facility by her son. * Haley He PTA - 03/25/2023 2:28 PM EDT Physical Therapy Pt declined PT d/t son almost here to take her to the SNF. * Colt Bryan MD - 03/25/2023 12:34 PM EDT Images from the original note were not included. INFECTIOUS DISEASES DAILY PROGRESS NOTE Patient Name: Renuka Graham MR #: [id number] Hospital Day: 7 Assessment and Plan: 1. [...] Given her debility she will discharge to [facility] to receive meropenem 2 g every 12 hours for 6 weeks. We will follow-up with her at that time and hopefully transition her to a lengthy course of oral therapy. ECF Nursing Instructions: 1)Picc Care 2)Qmon CBC,SR,Creat,CRP, fax to Dr. Bryan [phone] 3)IV ATB for 42 days 4)Call Dr. Bryan for F/C/S, N/V/D, rash, 5)F/U with Dr Bryan in 4-5 weeks 6) Call if released before completing IV therapy. Colt Bryan MD Infectious Diseases Temp (24hrs), Av.6 [...] intravenous Every 8 hours 03/24/23 2341 05/05/23 0707 Subjective/Objective: Comfortable Review of Systems: I have [...] Care 2)Qmon CBC,SR,Creat,CRP, fax to Dr. Bryan [phone] 3)IV ATB for 42 days 4)Call Dr. [...] be mentioned in the impression and plan. Colt Bryan MD * Haley He PTA - 03/25/2023 12:00 PM EDT Physical Therapy Pt declined PT d/t being discharged to SNF soon and wanting to eat. * Nik Cates RN - 03/25/2023 11:14 AM EDT Discharge folder placed at the nursing station. RN update folder is available once goals have been met and the pt is cleared by [employer] * Nik Cates RN - 03/25/2023 9:28 AM EDT Call received from Addi at [facility]. Discharge orders can be faxed to [phone]. Report [phone]. Addi indicated she was updated yesterday that transport will be around noon. * Evelyn Jose MD - 03/25/2023 8:16 AM EDT [address] [place] [address] Query Response Note PATIENT: RENUKA GRAHAM : 1955 ADMIT DATE: 03/21/2023 12:44 PM DISCH DATE: RESPONDING PROVIDER #: [id number] CDI RESPONSE TEXT: See PN CDI QUERY TEXT: Documentation of CHF -Chronic Right-sided CHF with mild LV Dysfunction. Please further specify below: --Chronic Systolic CHF/HFrEF, please specify present on admission. --Chronic Diastolic CHF/HFpEF, please specify present on admission. --Chronic Systolic and Diastolic CHF, please specify present on admission. The patient's clinical indicators include: Clinical Indicators: EPIC Note: -03/19Consult Dr. 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 Dee Dee Sparrow: -Congestive Heart Failure -Chronic Right-Sided CHF with mild LV Dysfunction -Mild Pulmonary HTN -on Diuretics. Treatment: [facility] MAR: -03/20 po Bumex BID Hod if, SBP <110. Risk Factors: H&P/PN: -67 yrs. of Age -s/p Left Knee Polyexchange, I&D for periprostatic infection -CHF -right-sided w/Mild LV Dysfunction -Pum. HTN -HTN -CKD Thank you, Chelsea Bearden RN, EROSION CONTROL COORDINATOR, CDI. cell: [phone]. Options provided: -- Respond - Create new note now -- Disagree - Not applicable / Not valid Query created by: CHELSEA BEARDEN on 03/24/2023 12:45 PM Electronically signed by: EVELYN JOSE MD 03/25/2023 8:15 AM * Evelyn Jose MD - 03/25/2023 8:12 AM EDT [facility] - PROGRESS NOTE Patient Name : Renuka Graham Patient : 1955 Patient Admit Date [...] opiates, and antibiotics to surgical service. Disposition: shelter facility. Subjective Patient reports pain is currently [...] 7 days Lab Units 03/21/23 0456 03/20/23 04003/19/23 1145 WBC AUTO K/mcL 10.8* 11.5* 12.4* [...] EDT AMADO received a call from Addi at [facility] and they received precert. Facility will planto accept the patient tomorrow. Will plan to acquire a repeat covid test in the am. Addi also confirmed the facility will be able to accept the patient on Meropenem. AMADO will send an update to Dr. Gi REID. will also have the patient coordinate a transport time tomorrow with her son * Meño Candelario RN - 03/24/2023 4:01 PM EDT AMADO received a call from Cindy at [facility] inquiring possible duration of IV ATB therapy. AMADO informed Cindy that the final determination will be determined per the [place] physician. Cindy was informed that it would [...] PM EDT AMADO spoke to Rosetta at [facility] and she confirmed the facility is still awaiting the precert from [facility]. Facility does request a repeat covid test day of discharge. AMADO will update the patient and also plan to complete a HENS and place in the discharge folder. * Amanda Gorman PTA - 03/24/2023 1:37 PM EDT [facility] Physical Therapy Treatment PT Discharge Recommendations: shelter facility placement Distance Ambulated (ft): 50 Device: [...] PT POC until patient is [facility]c [facility]. 03/24/23 1337 General Family/Caregiver Present No PT [...] well Medical Staff Made Aware Yes Comments [facility] notified that pt has used bathroom Plan PT Plan Skilled PT PT Discharge Recommendations shelter facility placement Goals/Education Encounter Problems Encounter Problems [...] Gorman PTA - 03/24/2023 11:13 AM EDT [facility] Physical Therapy Treatment PT Discharge Recommendations: shelter facility placement Distance Ambulated (ft): 50 Device: [...] PT POC until patient is d/c from [facility]. 03/24/23 1113 General Family/Caregiver Present No [...] PT Plan Skilled PT PT Discharge Recommendations shelter facility placement Goals/Education Encounter Problems Encounter Problems [...] CONSULTANTS - PROGRESS NOTE Patient Name : Renuka Graham Patient : 1955 Patient Admit Date [...] service. Disposition: [facility]. Subjective Patient reports pain is currently [...] Intake/Output Summary (Last 24 hours) at 03/24/2023 0768 Last data filed at 03/23/20232010 Gross per [...] 03/21/23 1131 03/21/23 0456 03/21/23 0454 03/20/23 19403/20/23 1431 03/20/23 1210 03/20/23 0404 03/20/23 0402 [...] Call received from Addi in admissions at [facility]. Precert is still pending. Addi inquired if pt is wearing a CPAP. Per RT-pt is non-compliant and does not wear CPAP. * Renuka Mccabe PT - 03/23/2023 12:37 PM EDT [facility] Physical Therapy Treatment PT Discharge Recommendations: shelter facility placement Distance Ambulated (ft): 50 Device: [...] 03/20/23 Outcomes Date/Time User Outcome 03/23/23 1320 Renuka Mccabe PT Progressing Goal: Pt will perform transfers with SBA/FWW Dates: Start: 03/19/23 Expected End: 03/20/23 Outcomes Date/Time User Outcome 03/23/23 1320 Renuka Mccabe PT Progressing Goal: Pt will ambulate x150 ft with SBA/FWW Dates: Start: 03/19/23 Expected End: 03/20/23 Outcomes Date/Time User Outcome 03/23/23 1320 Renuka Mccabe PT Progressing Goal: Pt will ascend/descend stairs with CGA/LRAD Dates: Start: 03/19/23 Expected End: 03/20/23 Outcomes Date/Time User Outcome 03/22/23 1427 Cindy Aguilera RN Progressing Goal: Pt will indicate understanding of knee protocol HEP to begin POD1 Dates: Start: 03/19/23 Expected End: 03/20/23 Outcomes Date/Time User Outcome 03/23/23 1320 Renuka Mccabe PT Progressing Encounter Problems (Resolved) There are no resolved problems. Education Documentation Home Exercise Program, taught by Renuka Mccabe PT at 03/23/2023 1:21 PM. Learner: Patient Readiness: Acceptance Method: Explanation, Demonstration Response: Verbalizes Understanding Comment: FUnctional mobility and TKA ther ex. Mobility Training, taught by Renuka Mccabe PT at 03/23/2023 1:21 PM. Learner: Patient Readiness: Acceptance Method: Explanation, Demonstration Response: Verbalizes Understanding Comment: FUnctional mobility and TKA ther ex. Home Exercise Program, taught by Renuka Mccabe PT at 03/23/2023 9:52 AM. Learner: Patient Readiness: Acceptance Method: Explanation, Demonstration Response: Demonstrated Understanding Comment: TKA ther ex and functional mobility. Mobility Training, taught by Renuka Mccabe PT at 03/23/2023 9:52 AM. Learner: Patient Readiness: Acceptance Method: Explanation, Demonstration Response: Demonstrated Understanding Comment: TKA ther ex and functional mobility. Education Comments No comments found. * Julia Meredith RN - 03/23/2023 9:39 AM EDT CM made OB call to Сергей at [place]-spoke to Addi in admissions- precert is still pending at this time. She has forwarded updated notes and will be in touch as soon as she hears anything. CM will continue to follow. * Renuka Smithfei, PT - 03/23/2023 9:07 AM EDT [facility] Physical Therapy Treatment PT Discharge Recommendations: shelter facility placement Distance Ambulated (ft): 45 Device: [...] reach, needs met and RN updated. 03/23/23 0907 General Family/Caregiver Present No PT Time Calculation PT Start Time 0907 PT Stop Time 0943 PT Time Calculation [...] 03/20/23 Outcomes Date/Time User Outcome 03/23/23 0951 Renuka Mccabe PT Progressing Goal: Pt will perform transfers with SBA/FWW Dates: Start: 03/19/23 Expected End: 03/20/23 Outcomes Date/Time User Outcome 03/23/23 0951 Renuka Mccabe PT Progressing Goal: Pt will ambulate x150 ft with SBA/FWW Dates: Start: 03/19/23 Expected End: 03/20/23 Outcomes Date/Time User Outcome 03/23/23 0951 Renuka Mccabe PT Progressing Goal: Pt will ascend/descend stairs with CGA/LRAD Dates: Start: 03/19/23 Expected End: 03/20/23 Outcomes Date/Time User Outcome 03/22/23 1427 Cindy Aguilera RN Progressing Goal: Pt will indicate understanding of knee protocol HEP to begin POD1 Dates: Start: 03/19/23 Expected End: 03/20/23 Outcomes Date/Time User Outcome 03/23/23 0951 Renuka Mccabe PT Progressing Encounter Problems (Resolved) There are no resolved problems. Education Documentation Home Exercise Program, taught by Renuka Mccabe PT at 03/23/2023 9:52 AM. Learner: Patient Readiness: Acceptance Method: Explanation, Demonstration Response: Demonstrated Understanding Comment: TKA ther ex and functional mobility. Mobility Training, taught by Renuka Mccabe PT at 03/23/2023 9:52 AM. Learner: [...] Plan for discharge to Subacute Rehab Facility ([facility] or [facility]) when cleared by PT and medically stable * Julia Meredith RN - 03/23/2023 7:26 AM EDT AMADO has sent updated PT and progress notes to [facility] via manual efax- [phone]-witha note checking on status of precert. CM will continue to follow. * Evelyn Jose MD - 03/23/2023 6:40 AM EDT [facility] - PROGRESS NOTE Patient Name : Renuka Graham Patient : 1955 Patient Admit Date [...] Disposition: Patient planning [facility] go to a [facility]iary facility. Subjective Patient reports pain is currently [...] within expected limits. Surgical drain and skin amlita are noted. Impression: Status post left total [...] goals for discharge. Awaiting SNF precert. * Colt Bryan MD - 03/22/2023 12:04 PM EDT Images from the original note were not included. INFECTIOUS DISEASES DAILY PROGRESS NOTE Patient Name: Renuka Graham MR #: [id number] Hospital Day: 4 Assessment and Plan: 1. Left knee: Stable on antibiotic medication. Intraoperative cultures pending. 2. Leukocytosis: Improving. 3. Disposition: Anticipate discharge with IV therapy, hoping for placement by tomorrow. Colt Bryan MD Infectious Diseases Temp (24hrs), Av.7 [...] 650 mg 650 mg oral q6h PRN Valeriano Squires MD acetaminophen (TYLENOL) tablet 975 mg 975 mg oral q8h Valeriano Squires MD 975 mg at 03/22/23 1430 albuterol 2.5 mg /3 mL (0.083 %) nebulizer solution 2.5 mg 2.5 mg nebulization q6h PRN Valeriano Squires MD allopurinoL (ZYLOPRIM) tablet 200 mg 200 mg oral Daily Valeriano Squires MD 200 mg at 03/22/23 1004 aluminum-magnesium hydroxide-simethicone (MAALOX) 200-200-20 mg/5 mL suspension 30 mL 30 mL oral 4xdaily PRN Valeriano Squires MD bethanechol (URECHOLINE) tablet 25 mg 25 mg oral TID PRN Valeriano Squires MD bisacodyL (DULCOLAX) suppository 10 mg 10 mg rectal Daily PRN Valeriano Squires MD budesonide-formoteroL (SYMBICORT) 160-4.5 mcg/actuation inhaler 2 puff 2 puff inhalation BID Valeriano Patterson MD 2 puff at 03/22/23 0749 bumetanide (BUMEX) tablet 1 mg 1 mg oral BID Valeriano Squires MD 1 mg at 03/21/23 0916 cloNIDine (CATAPRES) tablet 0.1 mg 0.1 mg oral q6h PRN Valeriano Squires MD diphenhydrAMINE (BENADRYL) capsule 25 mg 25 mg oral q4h PRN Valeriano Squires MD 25 mg at 03/22/23 1142 diphenhydrAMINE (BENADRYL) injection 25 mg 25 mg intravenous q6h PRN JAVED Patel docusate sodium (COLACE) capsule 100 mg 100 mg oral BID Valeriano Squires MD 100 mg at 03/22/23 1003 gabapentin (NEURONTIN) capsule 300 mg 300 mg oral TID Valeriano Squires MD 300 mg at 03/22/23 1430 HYDROmorphone (DILAUDID) injection 0.5 mg 0.5 mg intravenous q2h PRN Valeriano Squires MD 0.5 mg at 03/19/23 1707 magnesium hydroxide (MILK OF MAGNESIA) 400 mg/5 mL suspension 30 mL 30 mL oral Daily Valeriano Squires MD 30 mL at 03/22/23 1003 magnesium oxide (MAG-OX) tablet 400 mg 400 mg oral Nightly Valeriano Squires MD 400 mg at 03/21/23 2130 meropenem (MERREM) 1 g in sodium chloride 0.9 % 100 mL IVPB - MBP 1 g intravenous q8h Colt Bryan MD 200 mL/hr at 03/22/23 1610 1 g at 03/22/23 1610 naloxone (NARCAN) injection 0.4 mg 0.4 mg intravenous Once PRN Valeriano Squires MD ondansetron (PF) (ZOFRAN) injection 4 mg 4 mg intravenous q6h PRN Valeriano Squires MD oxyCODONE (ROXICODONE) immediate release tablet 10 mg 10 mg oral q4h PRN Valeriano Squires MD 10 mg at 03/22/23 1142 Or oxyCODONE (ROXICODONE) immediate release tablet 20 mg 20 mg oral q4h PRN Valeriano Squires MD 20 mg at 03/21/23 2134 Oxygen Therapy, Adult inhalation PRN Valeriano Squires MD pantoprazole (PROTONIX) EC tablet 40 mg 40 mg oral BID Valeriano Squires MD 40 mg at 03/22/23 1003 polyethylene glycol (MIRALAX) packet 17 g 17 g oral Nightly Valeriano Squires MD 17 g at 03/19/232006 promethazine (PHENERGAN) suppository 25 mg 25 mg rectal q6h PRN Valeriano Squires MD promethazine (PHENERGAN) tablet 25 mg 25 mg oral q6h PRN Valeriano Squires MD rivaroxaban (XARELTO) tablet 10 mg 10 mg oral Daily with dinner JAVED Patel 10 mg at 03/22/23 1610 senna (SENOKOT) tablet 8.6 mg 1 tablet oral BID Valeriano Squires MD 8.6 mg at 03/22/23 1003 sodium chloride 0.9 % flush 10 mL 10 mL intravenous BID JAVED Patel 10 mL at 03/22/23 1003 And sodium chloride 0.9 % flush 10 mL 10 mL intravenous PRN JAVED Patel sodium chloride 0.9 % flush 10 mL 10 mL intravenous q8h Colt Bryan MD 10 mL at 03/22/23 1145 sodium chloride 0.9 % flush 20 mL 20 mL intravenous PRN Colt Bryan MD 20 mL at 03/20/23 1436 sodium chloride 0.9 % infusion 100 mL/hr intravenous Continuous Valeriano Squires MD 100 mL/hr at 03/19/23 1706 100 mL/hr at 03/19/23 1706 tiZANidine (ZANAFLEX) tablet 8 mg 8 mg oral Daily PRN Valeriano Squires MD 8 mg at 03/20/232054 topiramate (TOPAMAX) tablet 50 mg 50 mg oral Nightly Valeriano Squires MD 50 mg at 03/21/232130 traZODone (DESYREL) tablet 25 mg 25 mg oral Nightly PRN Valeriano Squires MD Lab Results Component Value Date [...] be mentioned in the impression and plan. Colt Bryan MD * Amanda Horvath, PT - 03/22/2023 11:25 AM EDT [facility] Physical Therapy Treatment PT Discharge Recommendations: shelter facility placement Distance Ambulated (ft): 35 Device: [...] End: 03/20/23 Outcomes Date/Time User Outcome 03/22/23 115Felicitas Horvath, PT Progressing Goal: Pt will perform transfers with SBA/FWW Dates: Start: 03/19/23 Expected End: 03/20/23 Outcomes Date/Time User Outcome 03/22/23 Ike Horvath, PT Progressing Goal: Pt will ambulate x150 ft with SBA/FWW Dates: Start: 03/19/23 Expected End: 03/20/23 Outcomes Date/Time User Outcome 03/22/23 Ike Horvath, PT Progressing Goal: Pt will ascend/descend stairs with CGA/LRAD Dates: Start: 03/19/23 Expected End: 03/20/23 Outcomes Date/Time User Outcome 03/21/23 1341 Yasmin Beck PT Progressing Goal: Pt will indicate understanding [...] Plan for discharge to Subacute Rehab Facility ([facility] or [facility]) when cleared by PT and medically stable * Amanda Horvath, PT - 03/22/2023 10:05 AM EDT [facility] Physical Therapy Treatment PT Discharge Recommendations: shelter facility placement Distance Ambulated (ft): 30 Device: [...] Yasmin Beck PT Progressing Goal: Pt will indicate understanding [...] CONSULTANTS - PROGRESS NOTE Patient Name : Renuka Graham Patient : 1955 Patient Diagnosis : Perioperative Medical Management Provider Name : Pj Sparrow MD Date Of Service : 03/22/23 IMPRESSION AND PLAN : Left knee periprosthetic joint infection: Status/post Left knee polyethylene exchange, Left knee irrigation and debridement by Dr. Babrer on 03/19/23. Defer primary management as well [...] antibiotic management. Anemia: Labs reviewed on rounds 03/22. Hgb 11.6 on 03/21, preoperative Hgb 12.9, and surgical EBL = 50 mLs. The patient continues to display no clinical indications for transfusion but will require ongoing management while hospitalized including, IVFs, pulse oximetry, and supplemental oxygen for [id number] than 90%. Coronary Artery Disease ( I 25.10 ) LISTED MILD FROM CATH IN 2017 - Chronic pre-existing diagnosis. Currently no signs or symptoms to suggest ACS on rounds 03/22. Continue to monitor on telemetry while hospitalized. [...] home. Patient denied respiratory symptoms on rounds 03/22. Patient remains at elevated risk for postoperative [...] Echo-Mildly reduced LV systolic function 02/24/17 Lexiscan PLANT ENGINEER-mildly diminished LV systolic function with an EF [...] or worsening End of Shift Summary * Colt Bryan MD - 03/21/2023 1:11 PM EDT Images from the original note were not included. INFECTIOUS DISEASES DAILY PROGRESS NOTE Patient Name: Renuka Graham MR #: [id number] Hospital Day: 3 Assessment and Plan: 1. Left knee: Intraoperative cultures pending without growth. Preoperative aspirate with Pasteurella. Continuing current antimicrobial regimen. 2. Leukocytosis: Improving. 3. Disposition: Working on placement. Discussed with case management. Discussed with patient and son by telephone. Colt Bryan MD Infectious Diseases Temp (24hrs), Av.8 [...] 650 mg 650 mg oral q6h PRN Valeriano Squires MD acetaminophen (TYLENOL) tablet 975 mg 975 mg oral q8h Valeriano Squires MD 975 mg at 03/21/23 1433 albuterol 2.5 mg /3 mL (0.083 %) nebulizer solution 2.5 mg 2.5 mg nebulization q6h PRN Valeriano Squires MD allopurinoL (ZYLOPRIM) tablet 200 mg 200 mg oral Daily Valeriano Squires MD 200 mg at 03/21/23 0916 aluminum-magnesium hydroxide-simethicone (MAALOX) 200-200-20 mg/5 mL suspension 30 mL 30 mL oral 4xdaily PRN Valeriano Squires MD bethanechol (URECHOLINE) tablet 25 mg 25 mg oral TID PRN Valeriano Squires MD bisacodyL (DULCOLAX) suppository 10 mg 10 mg rectal Daily PRN Valeriano Squires MD budesonide-formoteroL (SYMBICORT) 160-4.5 mcg/actuation inhaler 2 puff 2 puff inhalation BID Valeriano Patterson MD 2 puff at 03/21/23 0816 bumetanide (BUMEX) tablet 1 mg 1 mg oral BID Valeriano qSuires MD 1 mg at 03/21/23 0916 cloNIDine (CATAPRES) tablet 0.1 mg 0.1 mg oral q6h PRN Valeriano Squires MD diphenhydrAMINE (BENADRYL) capsule 25 mg 25 mg oral q4h PRN Valeriano Squires MD 25 mg at 03/20/23 205 diphenhydrAMINE (BENADRYL) injection 25 mg 25 mg intravenous q6h PRN JAVED Patel docusate sodium (COLACE) capsule 100 mg 100 mg oral BID Valeriano Squires MD 100 mg at 03/21/23 0916 gabapentin (NEURONTIN) capsule 300 mg 300 mg oral TID Valeriano Squires MD 300 mg at 03/21/23 1433 HYDROmorphone (DILAUDID) injection 0.5 mg 0.5 mg intravenous q2h PRN Valeriano Squires MD 0.5 mg at 03/19/23 1707 magnesium hydroxide (MILK OF MAGNESIA) 400 mg/5 mL suspension 30 mL 30 mL oral Daily Valeriano Squires MD 30 mL at 03/21/23 0916 magnesium oxide (MAG-OX) tablet 400 mg 400 mg oral Nightly Valeriano Squires MD 400 mg at 03/20/232054 meropenem (MERREM) 1 g in sodium chloride 0.9 % 100 mL IVPB - MBP 1 g intravenous q8h Colt Bryan MD 200 mL/hr at 03/21/23 1706 1 g at 03/21/23 1706 naloxone (NARCAN) injection 0.4 mg 0.4 mg intravenous Once PRN Valeriano Squires MD ondansetron (PF) (ZOFRAN) injection 4 mg 4 mg intravenous q6h PRN Valeriano Squires MD oxyCODONE (ROXICODONE) immediate release tablet 10 mg 10 mg oral q4h PRN Valeriano Squires MD 10 mg at 03/21/23 0500 Or oxyCODONE (ROXICODONE) immediate release tablet 20 mg 20 mg oral q4h PRN Valeriano Squires MD 20 mg at 03/21/23 1718 Oxygen Therapy, Adult inhalation PRN Valeriano Squires MD pantoprazole (PROTONIX) EC tablet 40 mg 40 mg oral BID Valeriano Squires MD 40 mg at 03/21/23 09 polyethylene glycol (MIRALAX) packet 17 g 17 g oral Nightly Valeriano Squires MD 17 g at 03/19/232006 promethazine (PHENERGAN) suppository 25 mg 25 mg rectal q6h PRN Valeriano Squires MD promethazine (PHENERGAN) tablet 25 mg 25 mg oral q6h PRN Valeriano Squires MD rivaroxaban (XARELTO) tablet 10 mg 10 mg oral Daily with dinner JAVED Patel 10 mg at 03/21/23 170 senna (SENOKOT) tablet 8.6 mg 1 tablet oral BID Valeriano Squires MD 8.6 mg at 03/21/23 0916 sodium chloride 0.9 % flush 10 mL 10 mL intravenous BID JAVED Patel 10 mL at 03/20/23 0828 And sodium chloride 0.9 % flush 10 mL 10 mL intravenous PRN JAVED Patel sodium chloride 0.9 % flush 10 mL 10 mL intravenous q8h Colt Bryan MD 10 mL at 03/21/23 0503 sodium chloride 0.9 % flush 20 mL 20 mL intravenous PRN Colt Bryan MD 20 mL at 03/20/23 1436 sodium chloride 0.9 % infusion 100 mL/hr intravenous Continuous Valeriano Squires MD 100 mL/hr at 03/19/23 170 100 mL/hr at 03/19/231705 tiZANidine (ZANAFLEX) tablet 8 mg 8 mg oral Daily PRN Valeriano Squires MD 8 mg at 03/20/232054 topiramate (TOPAMAX) tablet 50 mg 50 mg oral Nightly Valeriano Squires MD 50 mg at 03/20/232054 traZODone (DESYREL) tablet 25 mg 25 mg oral Nightly PRN Valeriano Squires MD Lab Results Component Value Date [...] be mentioned in the impression and plan. Colt Bryan MD * Yasmin Beck, PT - 03/21/2023 12:55 PM EDT [facility] Physical Therapy Treatment PT Discharge Recommendations: shelter facility placement Distance Ambulated (ft): 0, 30feet [...] Staff Made Aware Yes Comments MARIBELL De Leno notified Goals/Education Encounter Problems Encounter Problems (Active) [...] AM EDT OB call to Сергей at [place] [phone]. NN spoke with [facility]. Per [facility] admissions staff are out of the office until Thursday. CM will continue to follow. * Yasmin Beck PT - 03/21/2023 9:57 AM EDT [facility] Physical Therapy Treatment PT Discharge Recommendations: shelter facility placement Distance Ambulated (ft): 30 Device: [...] aware Medical Staff Made Aware Yes Comments Haley, RN notified Goals/Education Encounter Problems Encounter Problems (Active) Template: Physical Therapy Problem: PT Short Term Goals Dates: Start: 03/19/23 Goal: Pt will perform bed mobility with CGA Dates: Start: 03/19/23 Expected End: 03/20/23 Outcomes Date/Time User Outcome 03/21/23 1056 Yasmin Beck PT Progressing Goal: Pt will perform transfers with SBA/FWW Dates: Start: 03/19/23 Expected End: 03/20/23 Outcomes Date/Time User Outcome 03/21/23 1056 Yasmin Beck PT Progressing Goal: Pt will ambulate x150 ft with SBA/FWW Dates: Start: 03/19/23 Expected End: 03/20/23 Outcomes Date/Time User Outcome 03/21/23 1056 Yasmin Beck PT Progressing Goal: Pt will ascend/descend stairs with CGA/LRAD Dates: Start: 03/19/23 Expected End: 03/20/23 Outcomes Date/Time User Outcome 03/21/23 1056 Yasimn Beck, PT Progressing Goal: Pt will indicate [...] Cates RN - 03/21/2023 8:52 AM EDT [facility] Case Management Rounding Note Patient Renuka Graham * Anusha Barber MD - Primary [...] Plan for discharge to Subacute Rehab Facility ([facility] or [facility]) when cleared by PT and medically stable * Pj Sparrow MD - 03/21/2023 6:44 AM EDT [facility] - PROGRESS NOTE Patient Name : Renuka Graham Patient : 1955 Patient Diagnosis : [...] or symptoms to suggest ACS on rounds 6/. Continue to monitor on telemetry while hospitalized. [...] 1.04. Labs and Is/Os reviewed on rounds 6/3. Last creatinine 0.92. The patient will be [...] home. Patient denied respiratory symptoms on rounds /. Patient remains at elevated risk for postoperative respiratory complications including hypoxemia and hypoventilation. Will continue monitoring on the NA JEREMY protocol. Respiratory Therapy to continue to [...] ON 03/19/23 - Sugars reviewed on rounds 03/21. Last reading noted at 95. Plan to [...] Echo-Mildly reduced LV systolic function 02/24/17 Lexiscan PLANT ENGINEER-mildly diminished LV systolic function with an EF [...] 03/20/20232222 by Alex Jones RN Outcome: Progressing Problem: Physical Regulation: Goal: [...] - 03/20/2023 2:03 PM EDT Rosetta from [facility] is requesting todays clinicals and manually faxed to her Efax of [phone] * Haley He PTA - 03/20/2023 12:25 PM EDT [facility] Physical Therapy Treatment PT Discharge Recommendations: shelter facility placement Distance Ambulated (ft): 30 in [...] End: 03/20/23 Outcomes Date/Time User Outcome 03/20/23 105Tiffany He PTA Progressing Goal: Pt will perform transfers with SBA/FWW Dates: Start: 03/19/23 Expected End: 03/20/23 Outcomes Date/Time User Outcome 03/20/23 105Tiffany He PTA Progressing Goal: Pt will ambulate x150 ft with SBA/FWW Dates: Start: 03/19/23 Expected End: 03/20/23 Outcomes Date/Time User Outcome 03/20/23 105Tiffany He PTA Progressing Goal: Pt will ascend/descend stairs with CGA/LRAD Dates: Start: 03/19/23 Expected End: 03/20/23 Outcomes Date/Time User Outcome 03/19/23 1939 [facility] Miller PT Progressing Goal: Pt will indicate understanding of knee protocol HEP to begin POD1 Dates: Start: 03/19/23 Expected End: 03/20/23 Outcomes Date/Time User Outcome 03/20/23 1249 Haley He PTA Progressing Encounter Problems (Resolved) [...] 03/20/2023 10:31 AM EDT Rosetta called from [facility] and she received the updated clinicals sent this morning andshe will begin precert. Patient updated. * Debbie Kapadia RN - 03/20/2023 9:56 AM EDT Called Rosetta at [facility] she is reviewing the referral now and faxed this mornings progress notes and PT note to her at [phone] * Haley He PTA - 03/20/2023 9:37 AM EDT [facility] Physical Therapy Treatment PT Discharge Recommendations: shelter facility placement Distance Ambulated (ft): 30 Device: [...] services. Pt to receive a PICC today 03/20/23 0937 General Family/Caregiver Present No PT Time Calculation [...] Date/Time User Outcome 03/20/23 1052 Haley He UNDERWRITING ANALYST Progressing Goal: Pt will ambulate x150 ft with SBA/FWW Dates: Start: 03/19/23 Expected End: 03/20/23 Outcomes Date/Time User Outcome 03/20/23 1052 Haley He UNDERWRITING ANALYST Progressing Goal: Pt will ascend/descend stairs with [...] Plan for discharge to Subacute Rehab Facility ([facility] or [facility]) when cleared by PT and medically stable * Valeriano Squires MD - 03/20/2023 6:42 AM EDT [facility] - PROGRESS NOTE Patient Name : Renuka Graham Patient : 1955 Patient Diagnosis : Perioperative Medical Management Provider Name : Valeriano Squires MD Date Of Service : 03/20/23 [...] Echo-Mildly reduced LV systolic function 02/24/17 Lexiscan PLANT ENGINEER-mildly diminished LV systolic function with an EF [...] [facility] the [facility]. Hypertension ( [...] and situation RESULTS : Hemoglobin A1c Order: [id number] Status: Final result Visible to patient: Yes (not seen) 0 Result Notes Component Ref Range & Units 1 d ago 6 mo ago Hemoglobin A1C <=5.6 % 5.7 High 5.6 CM Mean Bld Glu Estim. mg/dL 117 114 Resulting Agency [facility] Narrative Performed by: [facility] HbA1c values of 5.7-6.4 percent indicate an [...] days Lab Units 03/20/23 0404 03/20/23 0402 03/19/23200803/19/23 1538 03/19/23 1145 SODIUM mmol/L -- 138 [...] 106 (H) 03/20/2023 0402 GLUCOSE 131 (H) 03/19/20232008 GLUCOSE 124 (H) 03/19/2023 1538 GLUCOSE 97 [...] withoutdifficulty. Patient plans [facility] a [facility]iary facility. * Palmira Miller PT - 03/19/2023 6:32 PM EDT [facility] Physical Therapy Evaluation PT Discharge Recommendations: shelter facility placement Distance Ambulated (ft): 30 Device: [...] PT services but agreeable to ambulate to . Pt requesting D/C to SNF d/t living [...] loosening of internal left knee prosthetic joint ([facility]) Mechanical loosening of internal left knee prosthetic joint, subsequent encounter S/P left knee surgery Past Medical History: Diagnosis Date Anemia Arthritis Asthma CHF (congestive heart failure) ([facility]) Chronic kidney disease CKD 2/3 COPD (chronic obstructive pulmonary disease) ([facility]) Dental disease full dentures Diabetes mellitus ([facility]) DVT of leg (deep venous thrombosis) ([facility]) 2020 left leg GERD (gastroesophageal reflux disease) Hypertension Osteoporosis Shortness of breath Sleep apnea no device Wears dentures Wears glasses Past Surgical History: Procedure Laterality Date APPENDECTOMY SECTION, LOW TRANSVERSE JOINT REPLACEMENT Left revision KNEE ARTHROPLASTY Bilateral TONSILLECTOMY UPPER GASTROINTESTINAL ENDOSCOPY Objective 03/19/23 183 General Family/Caregiver Present No PT Time Calculation PT Start Time 183 PT Stop Time 190 PT Time Calculation [...] 1-2 times per day PT Discharge Recommendations shelter facility placement PT - Evaluation Status Complete [...] User Outcome 03/19/231938 Palmira Miller, PT Progressing Encounter Problems (Resolved) There are [...] PM EDT Followed up with С[facility] at [place]. [phone] . Admissions does have a skilled bed And obtained updated fax number and refaxed referral to [phone]. * Debbie Kapadia RN - 03/19/2023 5:19 [...] planning to go to SNF for Rehab С[facility]гей in [place]. Will place a referral. Son to transport to SNF * Debbie Kapadia RN - 03/19/2023 5:18 PM EDT 03/19/23 1717 Patient Information Accompanied by/Relationship son Patient arrived [...] requesting rehab at discharge documented in this encounterWarren General [id number] Consult note* Colt Bryan MD - 03/20/2023 3:58 PM EDTAssociated Order(s): IP CONSULT TO INFECTIOUS DISEASES Images from the original note were not included. INFECTIOUS DISEASES CONSULTATION NOTE Patient Name: Renuka Graham Admit Date: [id number] MR #: [id number] : 1955 Hospital Day: 2 Date of [...] follow-up postdischarge. Thank you for your consultation Colt Bryan MD Infectious Diseases History of Present [...] progressively worsened. She went to go to yarsanism on Thursday and pain was severe. 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 Physicians: Peter Sosa DO (Family); No ref. provider found (Referring) History: Past Medical History: Diagnosis Date Anemia Arthritis Asthma CHF (congestive heart failure) ([facility]) Chronic kidney disease CKD 2/3 COPD (chronic obstructive pulmonary disease) ([facility]) Dental disease full dentures Diabetes mellitus ([facility]) DVT of leg (deep venous thrombosis) ([facility]) 2020 left leg GERD (gastroesophageal reflux [...] 650 mg 650 mg oral q6h PRN Valeriano Squires MD acetaminophen (TYLENOL) tablet 975 mg 975 mg oral q8h Valeriano Squires MD 975 mg at 03/20/23 1433 albuterol 2.5 mg /3 mL (0.083 %) nebulizer solution 2.5 mg 2.5 mg nebulization q6h PRN Valeriano Squires MD allopurinoL (ZYLOPRIM) tablet 200 mg 200 mg oral Daily Valeriano Julio Cesar Squires MD 200 mg at 03/20/23 0825 aluminum-magnesium hydroxide-simethicone (MAALOX) 200-200-20 mg/5 mL suspension 30 mL 30 mL oral 4xdaily PRN Valeriano Squires MD bethanechol (URECHOLINE) tablet 25 mg 25 mg oral TID PRN Valeriano Squires MD bisacodyL (DULCOLAX) suppository 10 mg 10 mg rectal Daily PRN Valeriano Squires MD budesonide-formoteroL (SYMBICORT) 160-4.5 mcg/actuation inhaler 2 puff 2 puff inhalation BID Valeriano Patterson MD bumetanide (BUMEX) tablet 1 mg 1 mg oral BID Valeriano Squires MD ceFAZolin (ANCEF) 2 gram/20 mL IV syringe 2 g 2 g intravenous q8h JAVED Patel 2 g at 03/20/23 1433 cloNIDine (CATAPRES) tablet 0.1 mg 0.1 mg oral q6h PRN Valeriano Squires MD diphenhydrAMINE (BENADRYL) capsule 25 mg 25 mg oral q4h PRN Valeriano Squires MD 25 mg at 03/20/23 1019 diphenhydrAMINE (BENADRYL) injection 25 mg 25 mg intravenous q6h PRN JAVED Patel docusate sodium (COLACE) capsule 100 mg 100 mg oral BID Valeriano Squires MD 100 mg at 03/20/23 0824 gabapentin (NEURONTIN) capsule 300 mg 300 mg oral TID Valeriano Squires MD 300 mg at 03/20/23 1433 HYDROmorphone (DILAUDID) injection 0.5 mg 0.5 mg intravenous q2h PRN Valeriano Squires MD 0.5 mg at 03/19/23 1707 magnesium hydroxide (MILK OF MAGNESIA) 400 mg/5 mL suspension 30 mL 30 mL oral Daily Valeriano Squires MD 30 mL at 03/20/23 0824 magnesium oxide (MAG-OX) tablet 400 mg 400 mg oral Nightly Valeriano Squires MD 400 mg at 03/19/232005 naloxone (NARCAN) injection 0.4 mg 0.4 mg intravenous Once PRN Valeriano Squires MD ondansetron (PF) (ZOFRAN) injection 4 mg 4 mg intravenous q6h PRN Valeriano Squires MD oxyCODONE (ROXICODONE) immediate release tablet 10 mg 10 mg oral q4h PRN Valeriano Squires MD 10 mg at 03/20/23 1026 Or oxyCODONE (ROXICODONE) immediate release tablet 20 mg 20 mg oral q4h PRN Valeriano Squires MD Oxygen Therapy, Adult inhalation PRN Valeriano Squires MD pantoprazole (PROTONIX) EC tablet 40 mg 40 mg oral BID Valeriano Squires MD 40 mg at 03/20/23 0825 polyethylene glycol (MIRALAX) packet 17 g 17 g oral Nightly Valeriano Squires MD 17 g at 03/19/232006 promethazine (PHENERGAN) suppository 25 mg 25 mg rectal q6h PRN Valeriano Squires MD promethazine (PHENERGAN) tablet 25 mg 25 mg oral q6h PRN Valeriano Squires MD rivaroxaban (XARELTO) tablet 10 mg 10 mg oral Daily with dinner JAVED Patel senna (SENOKOT) tablet 8.6 mg 1 tablet oral BID Valeriano Squires MD 8.6 mg at 03/20/23 0824 sodium chloride 0.9 % flush 10 mL 10 mL intravenous BID JAVED Patel 10 mL at 03/20/23 0828 And sodium chloride 0.9 % flush 10 mL 10 mL intravenous PRN JAVED Patel sodium chloride 0.9 % flush 10 mL 10 mL intravenous q8h Colt Bryan MD 10 mL at 03/20/23 1141 sodium chloride 0.9 % flush 20 mL 20 mL intravenous PRN Colt Bryan MD 20 mL at 03/20/23 1436 sodium chloride 0.9 % infusion 100 mL/hr intravenous Continuous Valeriano Squires MD 100 mL/hr at 03/19/23 1706 100 mL/hr at 03/19/23 1706 tiZANidine (ZANAFLEX) tablet 8 mg 8 mg oral Daily PRN Valeriano Squires MD topiramate (TOPAMAX) tablet 50 mg 50 mg oral Nightly Valeriano Squires MD 50 mg at 03/19/232006 traZODone (DESYREL) tablet 25 mg 25 mg oral Nightly PRN Valeriano Squires MD Review of Systems: A complete [...] a moderate to high level of complexity. Colt Bryan MD [facility] General [id number] Consult note* Colt Bryan MD - 03/20/2023 3:58 PM EDTAssociated Order(s): IP CONSULT TO INFECTIOUS DISEASES Images from the original note were not included. INFECTIOUS DISEASES CONSULTATION NOTE Patient Name: Renuka Graham Admit Date: [id number] MR #: [id number] : 1955 Hospital Day: 2 Date of [...] follow-up postdischarge. Thank you for your consultation Colt Bryan MD Infectious Diseases History of Present [...] progressively worsened. She went to go to yarsanism on Thursday and pain was severe. 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 Physicians: Peter Sosa DO (Family); No ref. provider found (Referring) History: Past Medical History: Diagnosis Date Anemia Arthritis Asthma CHF (congestive heart failure) ([facility]) Chronic kidney disease CKD 2/3 COPD (chronic obstructive pulmonary disease) ([facility]) Dental disease full dentures Diabetes mellitus ([facility]) DVT of leg (deep venous thrombosis) ([facility]) 2020 left leg GERD (gastroesophageal reflux [...] 650 mg 650 mg oral q6h PRN Valeriano Squires MD acetaminophen (TYLENOL) tablet 975 mg 975 mg oral q8h Valeriano Squires MD 975 mg at 03/20/23 1433 albuterol 2.5 mg /3 mL (0.083 %) nebulizer solution 2.5 mg 2.5 mg nebulization q6h PRN Valeriano Squires MD allopurinoL (ZYLOPRIM) tablet 200 mg 200 mg oral Daily Valeriano Squires MD 200 mg at 03/20/23 0825 aluminum-magnesium hydroxide-simethicone (MAALOX) 200-200-20 mg/5 mL suspension 30 mL 30 mL oral 4xdaily PRN Valeriano Squires MD bethanechol (URECHOLINE) tablet 25 mg 25 mg oral TID PRN Valeriano Squires MD bisacodyL (DULCOLAX) suppository 10 mg 10 mg rectal Daily PRN Valeriano Squires MD budesonide-formoteroL (SYMBICORT) 160-4.5 mcg/actuation inhaler 2 puff 2 puff inhalation BID Valeriano Patterson MD bumetanide (BUMEX) tablet 1 mg 1 mg oral BID Valeriano Squires MD ceFAZolin (ANCEF) 2 gram/20 mL IV syringe 2 g 2 g intravenous q8h JAVED Patel 2 g at 03/20/23 1433 cloNIDine (CATAPRES) tablet 0.1 mg 0.1 mg oral q6h PRN Valeriano Squires MD diphenhydrAMINE (BENADRYL) capsule 25 mg 25 mg oral q4h PRN Valeriano Squires MD 25 mg at 03/20/23 1019 diphenhydrAMINE (BENADRYL) injection 25 mg 25 mg intravenous q6h PRN JAVED Patel docusate sodium (COLACE) capsule 100 mg 100 mg oral BID Valeriano Squirse MD 100 mg at 03/20/23 0824 gabapentin (NEURONTIN) capsule 300 mg 300 mg oral TID Valeriano Squires MD 300 mg at 03/20/23 1433 HYDROmorphone (DILAUDID) injection 0.5 mg 0.5 mg intravenous q2h PRN Valeriano Squires MD 0.5 mg at 03/19/23 1707 magnesium hydroxide (MILK OF MAGNESIA) 400 mg/5 mL suspension 30 mL 30 mL oral Daily Valeriano Squires MD 30 mL at 03/20/23 0824 magnesium oxide (MAG-OX) tablet 400 mg 400 mg oral Nightly Valeriano Squires MD 400 mg at 03/19/232005 naloxone (NARCAN) injection 0.4 mg 0.4 mg intravenous Once PRN Valeriano Squires MD ondansetron (PF) (ZOFRAN) injection 4 mg 4 mg intravenous q6h PRN Valeriano Squires MD oxyCODONE (ROXICODONE) immediate release tablet 10 mg 10 mg oral q4h PRN Valeriano Squires MD 10 mg at 03/20/23 1026 Or oxyCODONE (ROXICODONE) immediate release tablet 20 mg 20 mg oral q4h PRN Valeriano Squires MD Oxygen Therapy, Adult inhalation PRN Valeriano Squires MD pantoprazole (PROTONIX) EC tablet 40 mg 40 mg oral BID Valeriano Squires MD 40 mg at 03/20/23 0825 polyethylene glycol (MIRALAX) packet 17 g 17 g oral Nightly Valeriano Squires MD 17 g at 03/19/232006 promethazine (PHENERGAN) suppository 25 mg 25 mg rectal q6h PRN Valeriano Squires MD promethazine (PHENERGAN) tablet 25 mg 25 mg oral q6h PRN Valeriano Squires MD rivaroxaban (XARELTO) tablet 10 mg 10 mg oral Daily with dinner JAVED Patel senna (SENOKOT) tablet 8.6 mg 1 tablet oral BID Valreiano Squires MD 8.6 mg at 03/20/23 0824 sodium chloride 0.9 % flush 10 mL 10 mL intravenous BID JAVED Patel 10 mL at 03/20/23 0828 And sodium chloride 0.9 % flush 10 mL 10 mL intravenous PRN JAVED Patel sodium chloride 0.9 % flush 10 mL 10 mL intravenous q8h Colt Bryan MD 10 mL at 03/20/23 1141 sodium chloride 0.9 % flush 20 mL 20 mL intravenous PRN Colt Brayn MD 20 mL at 03/20/23 1436 sodium chloride 0.9 % infusion 100 mL/hr intravenous Continuous Valeriano Squires MD 100 mL/hr at 03/19/23 1706 100 mL/hr at 03/19/23 1706 tiZANidine (ZANAFLEX) tablet 8 mg 8 mg oral Daily PRN Valeriano Squires MD topiramate (TOPAMAX) tablet 50 mg 50 mg oral Nightly Valeriano Squires MD 50 mg at 03/19/232006 traZODone (DESYREL) tablet 25 mg 25 mg oral Nightly PRN Valeriano Julio Cesar Squires MD Review of Systems: A complete [...] a moderate to high level of complexity. Colt Bryan MD * Jessica Briseno RN - 03/20/2023 11:04 AM EDTAssociated Order(s): IP CONSULT TO IV TEAM PICC Line Insertion Procedure Note Procedure: Insertion of 4 FR SL Power and PICC into right arm per hospital protocol Indications: Fdc IV therapy, Home IV therapy Insertion: Bedside [...] prevention, CLABSI, and PICC procedural information. [employer] Switch Cleaner Lot #: [id number] * Jessica Briseno RN - 03/20/2023 10:[address] Ortega, patient's business information manager, has okayed patient for a PICC line. * Vaelriano Squires MD - 03/19/2023 7:53 AM EDT Chief complaint: [facility] - PREOPERATIVE MEDICAL RISK STRATIFICATION Patient Name : Renuka Graham Patient : 1955 Patient Admission Diagnosis : Left knee infection Referring Physician : Dr. Anusha Barber Provider Name : Valeriano Squires MD Date Of PAT Appointment : [...] Echo-Mildly reduced LV systolic function 02/24/17 Lexiscan PLANT ENGINEER-mildly diminished LV systolic function with an EF [...] [facility]. Hypertension ( [...] 2017 Cardiac clearance from 09/25/22; Dr. Campos CSS-kpy-ooaceoles with CPAP CKD Stage 4-baseline creat 1.04 [...] reaction No Previous Transfusion Related Reactions No Denominational Reasons To Avoid Blood Transfusions ANESTHESIA HISTORY [...] Echo-Mildly reduced LV systolic function 02/24/17 Lexiscan PLANT ENGINEER-mildly diminished LV systolic function with an EF [...] 03/19/2023 GLUCOSE 97 03/19/2023 documented in this encounterWarren General [id number] Hospital course Narrative* Debbie Kapadia RN - [...] dressing every seven days and as needed. [facility] -PT/OT Eval for Gait training, ADL'S, bed mobility, transfers, rom and strengthening, venous returnexercises and modalities prn. -WBAT LLE -FWW for gait assist Please follow surgeon's discharge instructions and prescription directions. Surgeon' discharge instructions are in patient's folder- FOLLOW SURGEON INSTRUCTION SHEETS Contact Surgeon's office with any questions/concerns [phone] -Plasma Flow SCD'S Compression leg pumps on Bilateral Legs for 20 hours per day x 2 weeks for additional DVT prevention- SEE SURGEONS INSTRUCTION SHEETS FOR DIRECTIONS -use over the counter stool softeners to prevent constipation - Prevena wound vac - Patient to call office and schedule an appointment to have prevena removed on03/27/2023- [phone]- per conversation with Dr. Santos- if patient is unable to make this appointment due to transportation issues- patient to follow instructions below- patient is aware that it isthe preference for prevena to be removed in office -When Prevena Wound Vac lifespan alarms, please remove the wound vac dressing. Take a photo of the incision and email : [email or web address]. Then apply Optifoam dressing that is in your discharge folder. -Call for a 2-3 week follow up appointment and any questions or concerns. Verify Office location when scheduling. [phone] * Portia Sue RN - 03/18/2023 2:28 [...] prior to your surgery. Check in at receptionist/telephone operator desk [address] [place] [address]. If Outpatient, these additional instructions apply: An adult must stay with you the whole time you are here and drive you home. An adult must stay withyou at home for 24 hours due to Anesthesia. If you have JEREMY, you are required to stay 3 hours after your surgery before we can discharge you. documented in this encounterWarren General [id number] Hospital Discharge instructions* Discharge Instructions* Colt Bryan MD - 03/20/2023 11:06 AM EDT ECF Nursing Instructions: 1)Picc Care 2)Qmon CBC,SR,Creat,CRP, fax to Dr. Bryan [phone] 3)IV ATB for 42 days 4)Call Dr. [...] nutrition/TPN (total parenteral nutrition) Blood products Chemotherapy salvage determiner antibiotics Blood draws Will a PICC affect [...] DVT (Deep Vein Thrombosis): Prevention: General Info (Bolivian) * Incentive Spirometer: General Info (Bolivian) * Fall Prevention (Bolivian) * Opioids: General Info (Bolivian) * Constipation (Bolivian) * PICC (Peripherally Inserted Central Catheter) (Bolivian) * Antibiotics: General Info (Bolivian) * rivaroxaban (Bolivian) documented in this encounterWarren General [id number] Consult note* Jessica Briseno RN - 03/20/2023 11:04 AM EDTAssociated Order(s): IP CONSULT TO IV TEAM PICC Line Insertion Procedure Note Procedure: Insertion of 4 FR SL Power and PICC into right arm per hospital protocol Indications: Fdc IV therapy, Home IV therapy Insertion: Bedside [...] prevention, CLABSI, and PICC procedural information. Bard Switch Cleaner Lot #: [id number] T [id number] Consult note* Jessica Briseno RN - 03/20/2023 10:[address] Ortega, patient's business information manager, has okayed patient for a PICC line. [id number] History and physical note* Anusha Barber MD - 03/19/2023 11:54 AM EDT History and Physical Update ( H&P completed within the previous thirty days ) I personally reviewed the History and Physical, interviewed and examined the patient prior to surgery. No changes have occurred in the patient's condition since the History and Physical was completed. T [employer] Work Phone: 1(972) 650-378706-01-2023 History and physical note* Anusha Barber MD - 03/19/2023 11:54 AM EDT History and Physical Update ( H&P completed within the previous thirty days ) I personally reviewed the History and Physical, interviewed and examined the patient prior to surgery. No changes have occurred in the patient's condition since the History and Physical was completed. documented in this encounterWarren General [id number] Procedure note* Anusha Barber MD - 03/19/2023 10:22 AM EDT Operative Note Patient Name: RENUKA GRAHAM Date of Service: March 19, 2023 Date of : 1955 Clinician: ANUSHA BARBER MD Facility: [facility] Location: [facility] PREOPERATIVE DIAGNOSIS: Left knee periprosthetic joint infection. POSTOPERATIVE DIAGNOSIS: Left knee periprosthetic joint infection. PROCEDURES PERFORMED: 1. Left knee polyethylene exchange. 2. Left knee irrigation and debridement. SURGEON: Anusha Barber MD GAMBLING CASHIER: Kaur Pierre PA-C ANESTHESIA: General endotracheal anesthesia. [...] was then let down.Hemostasis was obtained. A 10-Thai drain was placed in the knee. The [...] do home health or go to a penitentiary facility. Kaur Pierre PA-C, assisted with proper [...] patient. ANUSHA BARBER MD TT: 03/19/2023 15:47:00 [facility] [id number] Procedure note* Anusha Barber MD - 03/19/2023 10:22 AM EDT Operative Note Patient Name: RENUKA GRAHAM Date of Service: March 19, 2023 Date of : 1955 Clinician: ANUSHA BARBER MD Facility: [facility] Location: [facility] PREOPERATIVE DIAGNOSIS: Left knee periprosthetic joint infection. POSTOPERATIVE DIAGNOSIS: Left knee periprosthetic joint infection. PROCEDURES PERFORMED: 1. Left knee polyethylene exchange. 2. Left knee irrigation and debridement. SURGEON: Anusha Barber MD GAMBLING CASHIER: Kaur Pierre PA-C ANESTHESIA: General endotracheal anesthesia. [...] was then let down.Hemostasis was obtained. A 10-Thai drain was placed in the knee. The [...] do home health or go to a penitentiary facility. Kaur Pierre PA-C, assisted with proper [...] patient. ANUSHA BARBER MD TT: 03/19/2023 15:47:00 [facility] documented in this encounterWarren General [id number] Consult note* Valeriano Squires MD - 03/19/2023 7:53 AM EDT Chief complaint: [facility] - PREOPERATIVE MEDICAL RISK STRATIFICATION Patient Name : Renuka Graham Patient : 1955 Patient Admission Diagnosis : Left knee infection Referring Physician : Dr. Anusha Barber Provider Name : Valeriano Squires MD Date Of PAT Appointment : [...] Echo-Mildly reduced LV systolic function 02/24/17 Lexiscan PLANT ENGINEER-mildly diminished LV systolic function with an EF [...] [facility]. Hypertension ( [...] a revision procedure [facility]02[facility]2022[facility] he states she [...] 2017 Cardiac clearance from 09/25/22; Dr. Campos XYL-hkq-lipgyjlgs with CPAP CKD Stage 4-baseline creat 1.04 [...] reaction No Previous Transfusion Related Reactions No Denominational Reasons To Avoid Blood Transfusions ANESTHESIA HISTORY [...] Echo-Mildly reduced LV systolic function 02/24/17 Lexiscan PLANT ENGINEER-mildly diminished LV systolic function with an EF [...] 03/19/2023 CREATININE 1.10 03/19/2023 GLUCOSE 97 03/19/2023 [id number] History of Present illness Narrative* Encounter Date Complaint History Of Prese nt Illness Follow Up Left Knee Modifying Fa ctors: Previous Surgery: LK poly exchange DAC 10/02/22. Previous Surgery: LTKA 12/25/2014 Dr Alberts. Previous Surgery: RTKA 08/17/2017 Dr Alberts. Comments: Patient fell out of bed two weeks ago and landed on her knees. She went to the emergency room on 03/15/23 and [facility] said there wasn't a fracture present [...] MANUEL injection within the next few days. [facility] Work Phone: 1(102) 836-639604-24-2023 Evaluation note* Encounter Date Diagnosis Assessment Notes [...] Low back derangement syndrome (ICD-10 - M53.86) [employer] Other 03-21-2023 Evaluation note* Encounter Date Diagnosis Assessment Notes Treatment Notes Treatment Clinical Notes Dec, Asthma, moderate persistent (ICD-10 - J45.40) Dec, Morbid obesity (ICD-10 - E66.01) 21 Mar, 2023 JEREMY (obstructive sleep apnea) (ICD-10 - G47.33) Dec, Allergic rhinitis (ICD-10 - J30.9) Dec, GERD (gastroesophageal reflux disease) (ICD-10 - K21.9) [employer] Other 03-02-2023 NoteCONSULTATION CONSULTATION DATE: 12/18/2022 HISTORY: This is a 67-year-old female who returns to the clinic for medication maintenance for her chronic left knee pain. The patient had a total knee replacement done on October 02, 2022 and this was done by Dr. Richard martinez in [place]. She, for a short time, was in [...] prescription, and she agrees with this plan.[facility] [id number] Evaluation note* Encounter Date Diagnosis Assessment Notes Treatment Notes Treatment Clinical Notes Nov, Pre-diabetes (ICD-10 - R73.09) [facility] Other [id number] History of Present illness Narrative* Brandy Mullen RN - 10/06/2022 4:58 PM EST Patient met all goals and was given discharge instruction packet to take to facility by RN. Patientaware of when they last had pain meds and when they can have them again next. Patient escorted to transport vehicle via wheelchair by [facility]. This RN attempted to call report two times with no answer. Voicemail and callback number left. * Yasmin Beck, PT - 10/06/2022 2:55 PM EST [facility] PT Discharge Recommendations: shelter facility placement Distance Ambulated (ft): 50 ([id number], [id number]) Device: Rolling walker L Knee Flexion 0-140: [...] Rolling walker Distance Ambulated (ft) 50 Comments o85koyf, i12etnl with FWW Procedures Procedures Gait Training;Therapeutic Exercise Gait Training Gait Training Time Entry 15 Gait Training Activity 1 Gait training [id number] to toilet cga Gait Training Activity 2 Gait training [id number] after toileting task, cga Therapeutic Exercise Therapeutic [...] Date/Time User Outcome 10/06/22 1526 Yasmin Beck, PT Progressing Goal: Pt will demo good understanding of HEP protocol Dates: Start: 10/02/22 Expected End: 10/04/22 Outcomes Date/Time User Outcome 10/06/22 1526 Yasmin Beck PT Progressing Goal: Pt will ascend/descend steps with CGA and LRAD Dates: Start: 10/02/22 Expected End: 10/04/22 Outcomes Date/Time User Outcome 10/06/22 1526 Yasmin Beck PT Progressing Encounter Problems (Resolved) [...] AM EST CM updated by Zunilda at [facility] that precert had been obtained and they were able to admit patient to facility today. CM updated patient at bedside and she was updating her insurance company to keep scheduled transport time of noon. CM has faxed HENS, discharge RX, instructions and orders to [facility]: [phone]. RX in folder: oxycodone, xarelto and zofran Discharge packet completed, will place at [facility]. No further CM needs at this time. RN number for report: [phone] * Yasmin Beck PT - 10/06/2022 9:51 AM EST [facility] PT Discharge Recommendations: shelter facility placement Distance Ambulated (ft): 45 Device: [...] to SLR unassisted at this time. Objective 10/06/22950 General Family/Caregiver Present No PT Time Calculation PT Start Time 950 PT Stop Time 1022 PT Time Calculation [...] stance time Distance Ambulated (ft) 45 Comments l94ddlm with FWW, t54ndmw with FWW after toileting AROM LLE (degrees) L Knee Flexion 0-140 0-77 Procedures Procedures Gait Training;Therapeutic Exercise Gait Training Gait Training Time Entry 15 Gait Training Activity 1 Gait with FWW [id number] prior to toileting cga Gait Training Activity 2 Gait with FWW [id number] after toileting, using personal FWW Therapeutic Activity [...] that CM has spoken with admissions at [facility] and they are still awaiting precert. [...] AM EST CM made OB call to [facility]- [phone]-spoke with Thuy in admissions- she has already sent a note to insurance [employer] this morning to check on precert status. CM has faxed updated PT and progress notes to [phone]- will update patient at bedside that we still are awaiting precert- CM to follow. * Harshad Hickey MD - 10/06/2022 7:09 AM EST [facility] MEDICAL CONSULTANTS - PROGRESS NOTE Patient Name : Renuka Graham Patient : 1955 Patient Admit Date [...] in addition with additional sliding scale insulin. Xqaks-ox-ndub glucose results have been reviewed. 0 Lab [...] exercises. Xarelto use noted by surgeon. [facility]. This patient will be considered [...] Plan for discharge to Subacute Rehab Facility ([facility] or [facility]) when cleared by PT and medically stable * Shawn Rinladi RN - 10/05/2022 2:40 PM EST Problem: [...] Gorman PTA - 10/05/2022 12:50 PM EST [facility] Physical Therapy Treatment PT Discharge Recommendations: shelter facility placement Distance Ambulated (ft): 30 Device: [...] of care until patient is discharged from [facility]. Objective 10/05/22 1250 General Family/Caregiver Present No [...] PT Plan Skilled PT PT Discharge Recommendations shelter facility placement Goals/Education Encounter Problems Encounter Problems [...] Plan for discharge to Subacute Rehab Facility ([facility] or [facility]) when cleared by PT and medically stable * Amanda Gorman, UNDERWRITING ANALYST - 10/05/2022 9:42 AM EST [facility] Physical Therapy Treatment PT Discharge Recommendations: shelter facility placement Distance Ambulated (ft): 30 Device: [...] Plan of care untilpatient is discharged from [facility]. Objective 10/05/22 0942 General Family/Caregiver Present No [...] PT Plan Skilled PT PT Discharge Recommendations shelter facility placement Goals/Education Encounter Problems Encounter Problems [...] CONSULTANTS - PROGRESS NOTE Patient Name : Renuka Graham Patient : 1955 Patient Admit Date [...] 10/04/2022 12:36 PM EST OB call to [facility]. Per Yaz: admission is not in on [...] Pt states she would like an update Thursday. Ifprecert is not back then she will [...] Plan for discharge to Subacute Rehab Facility ([facility] or [facility]) when cleared by PT and medically stable * Beckie Sunshine PT - 10/04/2022 9:50 AM EST [facility] PT Discharge Recommendations: shelter facility placement DISPOSITION/PLAN: PT is recommending therapy 2-3 hours/day; 5 days/week with 24/7 supervision and support until highest LOF is [...] Patient received recumbent in room 226 at [facility] Please refer to OBJECTIVE assessment, TREATMENT [...] tasks and exercises to TKA rehab programing. Pat ient needing much encouragement and motivation. Objective 10/04/22 [...] 1-2 times per day PT Discharge Recommendations shelter facility placement Goals/Education Encounter Problems Encounter Problems (Active) Template: Physical Therapy Problem: PT Short Term Goals Dates: Start: 10/02/22 Goal: Pt will transfer with SBA. Dates: Start: 10/02/22 Expected End: 10/04/22 Outcomes Date/Time User Outcome 10/04/221728 Beckie Sunshine, RANDOLPH Progressing Goal: Pt will ambulate 150 ft. with wheeled walker and SBA Dates: Start: 10/02/22 Expected End: 10/04/22 Outcomes Date/Time User Outcome 10/04/221728 Beckie Sunshine, RANDOLPH Progressing Goal: Pt will demo good understanding of HEP protocol Dates: Start: 10/02/22 Expected End: 10/04/22 Outcomes Date/Time User Outcome 10/04/22 1729 Beckie Sunshine PT Progressing Goal: Pt will ascend/descend steps with CGA and LRAD Dates: Start: 10/02/22 Expected End: 10/04/22 Outcomes Date/Time User Outcome 10/04/22 1729 Beckie Sunshine PT Progressing Encounter Problems (Resolved) There are no resolved problems. Education Documentation Home Exercise Program, taught by Beckie Sunshine PT at 10/04/2022 [...] CONSULTANTS - PROGRESS NOTE Patient Name : Renuka Graham Patient : 1955 Patient Admit Date [...] 10/03/2022 6:11 PM EST HENS COMPLETE to [facility] * Amanda Gorman PTA - 10/03/2022 3:07 PM EST Patient sleeping soundly and did not rouse to name of knock. Will attempt again in am. * Debbie Kapadia RN - 10/03/2022 2:28 PM EST Zunilda from [facility] will accept the patient pending precert and patient updated * Meghann Bryan - 10/03/2022 12:08 PM EST 10/03/22 1208 Clinical Encounter Type Visited With Patient Time Spent 15 Minutes Type of Contact Introduction SPIRITUAL CARE ASSESSMENT Spiritual Care Assessment: Pt appropriate and coping supported by family and melinda expressed hope Spiritual Intervention: Active listening Hospitality provided [place] given Outcome: Pt shared feeling and hope Plan: PC will return at pt/family request. * Debbie Kapadia RN - 10/03/2022 11:36 AM EST Into see the patient and updated that [facility] is reviewing the referral. * Debbie Kapadia RN - 10/03/2022 10:36 AM EST [facility] admissions called back the they do not have beds and will not until mid next week. [employer] Rep. Reports the patient just told her to tell me when she delivered her leg pumps of a [facility] in [place] and called [phone] spoke to Zunilda and she does have beds and referral faxed to her at [phone]. * Debbie Kapadia RN - 10/03/2022 9:50 AM EST Rosetta from [facility] has no beds Patient would like a referral to [facility] [place] and called them [phone] Admissions in a meeting but they would like the referral sent to [facility] of [phone] and sent. Patient will look for a 3rd choice if needed. * Amanda Gorman PTA - 10/03/2022 8:55 AM EST [facility] Physical Therapy Treatment PT Discharge Recommendations: shelter facility placement Distance Ambulated (ft): 30 Device: [...] of care until patient is discharged from [facility]. Objective 10/03/22 0855 General Family/Caregiver Present No [...] 1-2 times per day PT Discharge Recommendations shelter facility placement Goals/Education Encounter Problems Encounter Problems [...] Education Comments No comments found. * Anusha Harrell Pineda, DO - 10/03/2022 8:33 AM EST [facility] - PROGRESS NOTE Patient Name : Renuka Graham Patient : 1955 Patient Admit Date [...] Plan for discharge to Subacute Rehab Facility ([facility] or [facility]) when cleared by PT and medically stable * Debbie Kapadia RN - 10/02/2022 4:34 PM EST Spoke to Rosetta in admissions at [facility] and she does not know what fax [phone] isbut her fax is [phone] and manually faxed the referral but she also does not have beds until next week She would need to look at her beds to determine what day. Currently she is helping in the cafeteria but she will review and get back with CM tomorrow. * Amanda Horvath PT - 10/02/2022 3:00 PM EST 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 ([facility]) Past Medical History: Diagnosis Date Anemia Asthma Chronic kidney disease CKD 2/3 COPD (chronic obstructive pulmonary disease) ([facility]) Diabetes mellitus ([facility]) DVT of leg (deep venous thrombosis) ([facility]) 2020 left leg GERD (gastroesophageal reflux [...] of Steps 3 Prior Function Level of [place] Independent with mobility and functional transfers Receives [...] 1-2 times per day PT Discharge Recommendations shelter facility placement Equipment Recommended [facility] PT - [...] Outcomes Date/Time User Outcome 10/02/22 1540 Amanda Horvath PT Progressing Goal: Pt will ambulate 150 [...] Program, taught by Amanda Horvath PT at 10/02/2022 [...] Teach fall prevention measures, taught by Amanda Horvaht PT at 10/02/2022 3:40 PM. Learner: Patient [...] Fpc Facility Plan is SNF and requesting [facility] in [place] * Anusha Sung DO - 10/02/2022 1:34 PM EST [facility] - PROGRESS NOTE Patient Name : Renuka Graham Patient : 1955 Patient Admit Date [...] she would like to go to [facility] in [place] at discharge. She has no one at home to help her. documented in this encounterWarren General [id number] Hospital course Narrative* Debbie Kapadia RN - 10/03/2022 5:58 PM EST [facility] -PT/OT Eval for Gait training, ADL'S, bed mobility, transfers, knee rom and strengthening, venous return exercises and modalities prn. Please follow surgeon's discharge instructions and prescription directions. Surgeon' discharge instructions are in patient's folder- FOLLOW SURGEON INSTRUCTION SHEETS Contact Surgeon's office with any questions/concerns [phone] -When Prevena Wound Vac lifespan alarms IN 7 DAYS FROM SURGERY please remove the wound vac dressingOR HAVE A FOLLOW UP SCHEDULED FOR 10/09/22 TO HAVE THE OFFICE REMOVE. CALL TO SCHEDULE THIS APPOINTMENT IF YOU WANT THE OFFICE TO REMOVE. Take a photo of the incision and email : [email or web address] Optifoam dressing that is in your discharge folder. ---A wound check will be performed at one week which can be done either by in person by scheduling a follow up visit in one week with Dr. BARBER in clinic by calling [phone], or virtually via store and forward telehealth. If you are opting for a virtual one-week wound check: 1. Please remove Prevena dressing only after therapy has completed as indicated by the device. 2. Take a photo of your wound and E-mail the photo to [employer] with Attn Dr. Rodas in the subject [...] or concerns. Verify Office location when scheduling. [email or web address] [phone] * Shilpi Rodriguez RN - 10/01/2022 9:36 [...] as recommended by your specialist Meds per [facility] recc NPO per JIS instruction Additional Instructions: [...] prior to your surgery. Check in at receptionist/telephone operator desk [address] [place] [address]. If Outpatient, these additional instructions apply: An adult must stay with you the whole time you are here and drive you home. An adult must stay withyou at home for 24 hours due to Anesthesia. If you have JEREMY, you are required to stay 3 hours after your surgery before we can discharge you. 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 The therapeutic radiologist was [employer] . The poly locked [...] good position and alignment of the components. GAMBLING CASHIER/ATTENDING PARTICIPATION: Carlos Gomez DO assisted with proper [...] By: Anusha Barber MD, on 10/02/2022 12:05:48 [facility], A Member of [facility] OPERATIVE REPORT PATIENT NAME: Renuka Graham DATE OF : 1955 CSN: [id number] SURGEON: Anusha Barber MD DATE OF SERVICE: 10/02/2022 DATE OF SURGERY: 10/02/2022 REF [id number] LOT [id number] PERSONA Vivacit-E 16 Millimeter Tibial insert Use By 2024-11-18 (42) [id number] (00) [id number] (76) [id number] [facility] [id number] Procedure note* Anusha Barber MD - 10/02/2022 11:31 AM EST [facility], A Member of [facility] OPERATIVE REPORT PATIENT NAME: Renuka Graham DATE OF : 1955 CSN: [id number] SURGEON: Anusha Barber MD DATE OF SERVICE: 10/02/2022 DATE OF SURGERY: 10/02/2022 PREOPERATIVE DIAGNOSIS: Left knee arthroplasty failure, 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 The therapeutic radiologist was [employer] . The poly locked [...] good position and alignment of the components. GAMBLING CASHIER/ATTENDING PARTICIPATION: Carlos Gomez DO assisted with proper [...] By: Anusha Barber MD, on 10/02/2022 12:05:48 [facility], A Member of [employer] OPERATIVE REPORT PATIENT NAME: Renuka Graham DATE OF : 1955 CSN: [id number] SURGEON: Anusha Barber MD DATE OF SERVICE: 10/02/2022 DATE OF SURGERY: 10/02/2022 REF [id number] LOT [id number] [employer]ER Vivacit-E 16 Millimeter Tibial insert Use By 2024-11-18 (71) [id number] (06) [id number] (85) [id number] documented in this encounterThinkNearQgrphn11-83-1042 History and physical note* Anusha Barber MD - 10/02/2022 10:29 AM EST History and Physical Update ( H&P completed within the previous thirty days ) I personally reviewed the History and Physical, interviewed and examined the patient prior to surgery. No changes have occurred in the patient's condition since the History and Physical was completed. [employer] Work Phone: 1(348) 725-183512-15-2022 History and physical note* Anusha Barber MD - 10/02/2022 10:29 AM EST History and Physical Update ( H&P completed within the previous thirty days ) I personally reviewed the History and Physical, interviewed and examined the patient prior to surgery. No changes have occurred in the patient's condition since the History and Physical was completed. documented in this encounterWarren General [id number] Evaluation note* Encounter Date Diagnosis Assessment Notes [...] loss has been addressed. Sep, Other secondary assistance specialist sampson gout without tophus, unspecified site (ICD-10 - M1A.40X0) no more gout attack Sep, Hyperuricemia (ICD-1 0 - E79.0) On Allopurinol. 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 [employer] Other 12-01-2022 NoteCONSULTATION CONSULTATION DATE: 09/18/2022 This is a 67-year-old female who returns to the clinic for a 3-month follow-up for chronic lower back pain, left hip pain and left knee pain. She was last seen on 05/29/2022. At that time, she was in the process of having a workup from Orthopedics in [place] pending left knee and hip replacement. Today she reports that she is having a left total knee done on 10/[address] Barber in [place]. At her last appointment she was ordered [...] time for a follow-up unless otherwise indicated.[facility] [id number] Evaluation note* Encounter Date Diagnosis Assessment Notes [...] Low back derangement syndrome (ICD-10 - M53.86) [employer] Other 09-13-2022 Evaluation note* Encounter Date Diagnosis [...] Jun, Medication managemen t (ICD-10 - Z79.899) [employer] Other 08-11-2022 NoteCONSULTATION CONSULTATION DATE: 05/29/2022 HISTORY [...] t.i.d., tizanidine 4 mg b.i.d., Topamax and Martin 5/325 b.i.d. She was seen by Dr. Desai, who referred her to an orthopedic high risk consulting treasury director down in [place] regarding her left hip arthrosis. She is in need of a total left hip replacement, but she was sent to complete four weeks of therapy for strengthening prior to the surgery. The combination of her lower back pain and hip pain increases her pain. At rest, her pain is 4/10. With activity, it is 8-9/10. The patient feels the Martin is not as helpful as it has [...] the patient, she must bring in her Martin to be disposed of prior to starting the Percocet. She is in agreement to this. The intent is to go down to daily following her hip replacement and following lumbar rhizotomy. Patient will be brought in post procedure.[facility] [id number] Evaluation note* Encounter Date Diagnosis Assessment Notes [...] May, Medication managemen t (ICD-10 - Z79.899) [employer] Other 07-07-2022 NoteCONSULTATION CONSULTATION DATE: 04/24/2022 This [...] total knee replacements. She was currently taking Martin 5/325, 1.5 mg q. day. In addition, she takes gabapentin, tizanidine and Topamax. She was on Plavix but has been taken off of that two weeks ago. The patient recently saw her PCP and he suggested that the Martin be increased to b.i.d. for better management [...] degenerative disk and lumbar spondylosis. PLAN: Her Martin will be refilled at 5/325 b.i.d. After discussion with the patient, she agrees to move forward with the lumbar epidural steroid injection with sedation only. The patient agrees to this and was educated regarding her vitamins and magnesium. She will be followed up in the clinic post-procedure. [facility] Signed and Approved by: GIULIA PICHARDO . 05/01/2022 09:48:0006-29-2022 Evaluation note* Encounter Date Diagnosis Assessment Notes [...] Mar, Medication managemen t (ICD-10 - Z79.899) [employer] Other 06-28-2022 Evaluation note* Encounter Date Diagnosis Assessment Notes Treatment Notes Treatment Clinical Notes Mar, Asthma, moderate persistent (ICD-10 - J45.40) Mar, Morbid obesity (ICD-10 - E66.01) Mar, JEREYM (obstructive sleep apnea) (ICD-10 - G47.33) Mar, Allergic rhinitis (ICD-10 - J30.9) Mar, GERD (gastroesophageal reflux disease) (ICD-10 - K21.9) [employer] Other 06-15-2022 Evaluation note* Encounter Date Diagnosis [...] loss has been addressed. 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 [employer] Other 05-26-2022 Evaluation note* Encounter Date Diagnosis Assessment Notes Treatment Notes Treatment Clinical Notes February, Edema of extremities (ICD-10 - R60.0) [employer] Other 04-20-2022 Evaluation note* Encounter Date Diagnosis [...] Jan, Metabolic syndrome X (ICD-10 - E88.81) [facility] Other 04-11-2022 Evaluation note* Encounter Date Diagnosis Assessment Notes Treatment Notes Treatment Clinical Notes Jan, Acute right-sided thoracic back pain (ICD-10 - M54.6) [facility] Other 02-23-2022 Evaluation note* Encounter Date Diagnosis Assessment Notes Treatment Notes Treatment Clinical Notes Nov, Other chronic pain (ICD-10 - G89.29) [facility] Other 02-15-2022 Evaluation note* Encounter Date Diagnosis Assessment Notes Treatment Notes Treatment Clinical Notes Nov, Other chronic pain (ICD-10 - G89.29) [facility] Other 01-18-2022 Evaluation note* Encounter Date Diagnosis [...] Oct, Metabolic syndrome X (ICD-10 - E88.81) [facility] Other 01-18-2022 Evaluation note* Encounter Date Diagnosis [...] total knee replacement 5 years ago, dr. alberts. will xray. normal knee exam. Oct, Other uses for skin y east infections, cannot say how often she uses it. [facility] Other 12-16-2021 Evaluation note* Encounter Date Diagnosis Assessment Notes Treatment Notes Treatment Clinical Notes Sep, Other chronic pain (ICD-10 - G89.29) [employer] Other 12-08-2021 Evaluation note* Encounter Date Diagnosis [...] - D63.1) Hemoglobin stable on ferrous sulfate. [employer] Other 11-18-2021 Evaluation note* Encounter Date Diagnosis Assessment Notes Treatment Notes Treatment Clinical Notes Aug, Hyperuricemia (ICD-1 0 - E79.0) Aug, Other chronic pain (ICD-10 - G89.29) [employer] Other 10-29-2021 Evaluation note* Encounter Date Diagnosis Assessment Notes Treatment Notes Treatment Clinical Notes Jul, Lower extremity edema (ICD-10 - R60.0) [employer] Other 10-13-2021 Evaluation note* Encounter Date Diagnosis Assessment Notes Treatment Notes Treatment Clinical Notes Jul, Other chronic pain (ICD-10 - G89.29) Jul, Acute right-sided thoracic back pain (ICD-10 - M54.6) [facility] Other 10-13-2021 Evaluation note* Encounter Date Diagnosis Assessment Notes Treatment Notes Treatment Clinical Notes Jul, Other chronic pain (ICD-10 - G89.29) [employer] Other 10-07-2021 Evaluation note* Encounter Date Diagnosis [...] past. Discussed with her we will contact diabetic shoe [employer]. Jul, Lower extremity edema (ICD-10 - R60.0) [...] has been off at least a month. [employer] Other 09-23-2021 Evaluation note* Encounter Date Diagnosis [...] Jun, Metabolic syndrome X (ICD-10 - E88.81) [employer] Other 09-22-2021 Evaluation note* Encounter Date Diagnosis Assessment Notes Treatment Notes Treatment Clinical Notes Jun, Asthma, moderate persistent (ICD-10 - J45.40) Jun, Morbid obesity (ICD-10 - E66.01) Jun, JEREMY (obstructive sleep apnea) (ICD-10 - G47.33) Jun, Allergic rhinitis (ICD-10 - J30.9) Jun, GERD (gastroesophageal reflux disease) (ICD-10 - K21.9) [facility] [employer] Other consult note* Clinical Note Date No Information [facility] Work Phone: Discharge summary* Clinical Note Date No Information [facility] Work Phone: Evaluation noteNo Information[facility] [employer] Other Evaluation note* Diagnosis Onset Date Resolution Status Iron deficiency anemia chron ic Thrombophlebitis chronic [facility] Work Phone: Evaluation note* Diagnosis Mechanical loosening of internal left knee prosthetic joint, subsequent encounter- Primary Mechanical loosening of internal left knee prosthetic joint, 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, subsequent encounter documented in this encounter [facility]* Diagnosis S/P left knee surgery- Primary Infection and inflammatory reaction due to other internal joint prosthesis, initial encounter (CMS/HCC) Infection and inflammatory reaction due to other internal joint prosthesis, initial encounter ([facility]) documented in this encounter [facility] HospitalEvaluation noteNo assessment information availableOhiohealth Doctors Hospital Work Phone: Evaluation note* Author Yuan Romeo [facility] Authored January 05, 2024 2:5 3pm Patient is stable with lack of insurance coverage for Symbicort. It appears that patient's best choice for insurance coverage of medications should be Advair Diskus. [facility] Work Phone: Evaluation note* Type Assessment Date No Information [facility] Work Phone: Evaluation note* Diagnosis Onset Date Resolution Status Admit Date Contact with and (suspected) exposure to covid-19 noneactive October 27 12:18pm [facility] Work Phone: Evaluation note* Diagnosis Hypotension after procedure- Primary Hypotension after procedure COPD (chronic obstructive pulmonary disease) (HCC) Chronic airway obstruction, not elsewhere classified Diabetes mellitus (HCC) Type II or unspecified type diabetes mellitus without mention of complication, not stated as uncontrolled Hypertension Unspecified essential hypertension Stage 4 chronic kidney disease ([facility]) [facility] Diagnosis ETD (Eustachian tube dysfunction), bilateral- Primary Ear fullness, bilateral Swollen gland Multinodular goiter ([facility]) Nontoxic multinodular goiter documented in this encounter [facility] HealthcareEvaluation [facility]* Diagnosis Sensorineural hearing loss, bilateral- Primary Tinnitus, bilateral Unspecified tinnitus documented in this encounter [facility] HealthcareEvaluation note* Diagnosis Allergic rhinitis, unspecified seasonality, unspecified trigger- Primary Sensorineural hearing loss (SNHL), bilateral Nontoxic multinodular goiter ([facility]) Nontoxic multinodular goiter documented in this encounter [facility] HealthcareEvaluation note* Diagnosis Left knee pain, unspecified chronicity- Primary Left hip pain Pain in joint, pelvic region and thigh History of total knee arthroplasty, left Primary osteoarthritis of left hip Primary localized osteoarthrosis, pelvic region and thigh Left hip pain Pain in joint, pelvic region and thigh Left knee pain, unspecified chronicity [facility] Left knee pain, unspecified chronicity [facility] Diagnosis Left hip pain Pain in joint, pelvic region and thigh [facility] Clinical Note Date No Information [facility] Work Phone: History general Narrative - Reported* [...] Surgical History tonsillectomy Surgical History gastric bypass 1984 Surgical History Caesarean section Surgical History left knee arthroplasty Surgical History EVLT Right LE 2008 Surgical History colonoscopy 02/2013 Surgical History Foot Surgery Surgical History TKA 12/2014 Surgical History toenails removed 02/22/2014 Surgical History cardiac catheterization 02/2013 Surgical History TKA rt 08/17/2017 Surgical History TENDINITIS IN LEFT FOOT Surgical History UPPER GI 05/2019 Hospitalization History appendectomy Hospitalization History tonsillectomy Hospitalization History [facility] Kidney problems 03/20 019 Hospitalization History sEE ABOVE Hospitalization History pneumonia Hospitalization History Leg cramps [facility] dehydrat ion 06/2021 [employer] Other [employer] general Narrative - [facility] Other [employer] general Narrative - Reported* Type Description Date [...] History appendectomy Hospitalization History tonsillectomy Hospitalization History [facility] [place] Kidney problems 03/20 019 Hospitalization History sEE ABOVE Hospitalization History pneumonia Hospitalization History Leg cramps [facility] dehydrat ion 06/2021 [employer] Other history general Narrative - Reported* Type Description Date [...] History appendectomy Hospitalization History tonsillectomy Hospitalization History [facility] [place] Kidney problems 03/20 019 Hospitalization History sEE ABOVE Hospitalization History pneumonia Hospitalization History Leg cramps [facility] [place] dehydrat ion 06/2021 [employer] Other History general Narrative - Reported* Type [...] Surgical History tonsillectomy Surgical History gastric bypass 1984 Surgical History Caesarean section Surgical History left [...] History appendectomy Hospitalization History tonsillectomy Hospitalization History [facility] [place] Kidney problems 03/20 019 Hospitalization History sEE ABOVE Hospitalization History pneumonia Hospitalization History Leg cramps [facility] dehydrat ion 06/2021 [employer] Other History of Present illness Narrative* Patient [...] implantable device. 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 Encarnacion * 5. I reviewed her recent lab work * 6. We will see her back in 1 year in follow-up formerly [facility] 250 DO Work Phone: Hospital Discharge instructions* Attachments The following attachments cannot be sent through Care Everywhere. * Fall Prevention (B[place]ivian) * DVT (Deep Vein Thrombosis): Prevention: General Info (Bolivian) * Pain Medication Precautions ([place]ian) * Constipation ([place]ian) * Incentive Spirometer: General Info ([place]ian) * Antibiotics: General Info ([place]ian) [facility]* Date Instruction Additional Infor mation No Information [facility] Work Phone: Progress note* Clinical Note Date No Information [facility] Work Phone: Reason for referral (narrative)* Reason For Referral No Information [facility] Work Phone: Reason for referral (narrative)No reason for referral information availableOhiohealth Doctors Hospital Work Phone: Reason for visit Narrative* Auth/Cert Specialty Diagnoses / Procedures Referred By Rene pina Referred To Contact Diagnoses Mechanical loosening of internal left knee prosthetic joint, subsequent encounter T84.033D Procedures CA REVISION TOTAL KNEE ARTHROPLASTY WITH OR WITHOUT ALLOGRAFT 1 COMPONENT CA REVISION TOTAL KNEE ARTHROPLASTY WITH OR WITHOUT ALLOGRAFT 1 COMPONENT Left knee revision arthroplasty poly exchange Anusha Barber MD [address] [place] [address] [address] [place] [address] Referral ID Status Reason Start Date Expiration Date Visits Re quested Visits Authorized [id number] 1 1 [facility] for visit Narrative* Auth/Cert Specialty Diagnoses / Procedures Referred By Contac t Referred To Contact Diagnoses Infection and inflammatory reaction due to other internal joint prosthesis, initial encounter ([facility]) T84.59XA Procedures CA INCISION & DRAINAGE ABSCESS/BURSA/HEMATOMA DEEP SOFT TISSUE THIGH/KNEE Left knee I & D Anusha Barber MD [address] [place] [address] [address] [place] [address] Referral ID Status Reason Start Date Expiration Date Visits Re quested Visits Authorized [id number] 1 1 [facility] for visit Narrative* Auth/Cert (Routine) Specialty Diagnoses / Procedures Referred By Contac t Referred To Contact Diagnoses Left hip pain Left hip pain [M25.552] Procedures CA ARTHROCENTESIS ASPIR&/INJ MAJOR JT/BURSA W/O US INJECTION MEDICATION-HIP INTRA-ARTICULAR INJECTION Estrella Bryan MD [address] [place] [address] [place] [address] Phone: tel: fax: [facility] [address] [place] [address] Referral ID Status Reason Start Date Expiration Date Visits Re quested Visits Authorized [id number] 1 1 [facility] Summary Purpose Family History No Family History Records FoundUnknown Family Member Name Dates Details Adopted: Other(V68.89, [...] not k nown due to adoption Unknown natural son Hypertension Unknown Family Member Type Diagnosis Age At Onset No Information Relationship Condition Age at Onset Recorded Date/T claire Not Specified Family history not k nown due to adoption Unknown son Hypertension Unknown Advance Directives No Advanced Directives Records Found Advance Directive Response Recorded Date/ Time Advance Directives No January 31 019 1:51pm Latest Code Status on File [...] therapy to prevent/treat cardiac or respiratory arrest. Advance Directive Response Recorded Date/ Time Advance Directives Yes January 04 2:03pm Directive Yes / No Effective Date File Name No Information Advance Directive Response Recorded Date/ Time Advance Directives Yes January 04 024 1:03pm Date Activated Date Inactivated Comments 01/05/2025 6:23 AM Chief Complaint and Reason for Visit Chief Complaint DVT Obesity E11.42 R53.82 E55.9 Blood in urine Reason for Visit Iron deficiency anem ia Thrombophlebitis Chief Complaint Obesity Chief Complaint 6 Month f/u- Asthma JEREMY GERD Allergic Rhinitis Reason for Visit Asthma Chief Complaint Admit Date Cough, Congestion October 27, 2024 12 :18pm Reason for Visit Admit Date Contact with and (suspected) exposure to covid-19 October 27, 2024 12:18pm Chief Complaint Admit Date Unknown April 11, 2025 12:0 6pm Chief Complaint RENUKA GRAHAM is being seen for an annual follow-up of. Additional Source Comments INFORMATION SOURCE (unrecogn ized section and content) DATE CREATED AUTHOR 06/14/2018 [facility] DATE CREATED AUTHOR AUTHOR'S ORGANIZ ATION 07/09/2018 [facility] DATE CREATED AUTHOR AUTHOR'S ORGANIZ ATION 09/05/2018 [facility] DATE CREATED AUTHOR AUTHOR'S ORGANIZ ATION 12/29/2020 [facility] DATE CREATED AUTHOR AUTHOR'S ORGANIZ ATION 09/26/2022 [facility] DATE CREATED AUTHOR AUTHOR'S ORGANIZ ATION 09/26/2022 [facility] DATE CREATED AUTHOR AUTHOR'S ORGANIZ ATION 03/30/2023 [facility] DATE CREATED AUTHOR AUTHOR'S ORGANIZ ATION 06/05/2024 [facility] DATE CREATED AUTHOR AUTHOR'S ORGANIZ ATION 06/07/2024 [facility] DATE CREATED AUTHOR AUTHOR'S ORGANIZ ATION 06/09/2024 [facility] DATE CREATED AUTHOR AUTHOR'S ORGANIZ ATION 06/11/2024 [facility] DATE CREATED AUTHOR AUTHOR'S ORGANIZ ATION 07/22/2024 [facility] DATE CREATED AUTHOR AUTHOR'S ORGANIZ ATION 01/27/2025 [facility] DATE CREATED AUTHOR AUTHOR'S ORGANIZ ATION 03/17/2025 [facility] DATE CREATED AUTHOR AUTHOR'S ORGANIZ ATION 04/15/2025 [facility] DATE CREATED AUTHOR AUTHOR'S ORGANIZ ATION 05/02/2025 [facility] DATE CREATED AUTHOR AUTHOR'S ORGANIZ ATION 06/14/2025 [facility] REASON FOR VISIT (unrecogniz ed section and content) Reason Comments Swollen Glands Reason Comments Thyroid Nodule Follow up ultrasound [facility] 01/24/25 Ear Problem Audio 03/14/25 Reason Comments Pain 69 y.o. female 2007 L TKAand 2021 L TKRevsion (Dr. Barber in [place]). Had a cat scratch infection in 2022 - currently on antibiotics. C/o anterior knee pain since 2021 revision. Also c/o of L hip pain - starts in low back and wraps around to anterior thigh. PT: Yes - for knee. Smoker: No, Diabetic: No. Blood Thinner: No Specialty Diagnoses / Procedures Referred By Contac t Referred To Contact Orthopaedics Diagnoses Pain due to internal orthopedic prosthetic devices, implants and grafts, initial encounter Vlad Wade MD [address] [place] [address] Phone: tel: Vlad Joel MD [address] [place] [address] Phone: tel: fax:[phone] Referral ID Status Reason Start Date Expiration Date V isits Requested Visits Authorized [id number] New Request 03/03/2025 03/28/2026 1 1 Care Teams (unrecognized sec tion and content) Team Status: Active Member Role Status Dates Peter Sosa DO Primary Care Provider Active Team Status: Inactive Member Role Status Dates Peter Sosa DO Primary Care Provider Active Start: January 05, 2024 End: January 05, 2024 Yuan Romeo MD Attending Provider Active Start: January 05, 2024 End: January 05, 2024 DME Active Start: January 042023 End: January 05, 2024 Team Status: Active Member Role Status Dates Peter Sosa DO Primary Care Provider Active Laquita Medina MD Attending Provider Active Team Status: Inactive Member Role Status Dates Peter Sosa DO Primary Care Provider Active Deidra Lee [facility] Emergency Provider Active Team Status: Inactive Member Role Status Dates Elda Sibley DO Primary Care Provider Active Peter Sosa DO Attending Provider Active Team Status: Active Member Role Status Dates Colt Ndiaye MD Active Elda Sibley DO Primary Care Provider Active Megan Epps APRN Attending Provider, [facility] er Provider Active Business Strategist Relationship Specialty Start Date End Date Peter Sosa DO [address] [place] [address] PCP - General Family Medicine 12/5/22 Business Strategist Relationship Specialty Start Date End Date Peter Sosa DO [address] [place] [address] PCP - General Family Medicine 09/22/22 Name Effective Dates (start - stop) Status Members No Information Team Status: Inactive Member Role Status Dates Peter Sosa DO Primary Care Provider Active Start: October 27, 2024 End: October 27, 2024 Yohana Low APRN Attending Provider Active S tart: October 27, 2024 End: October 27, 2024 Business Strategist Relationship Specialty Start Date End Date Unallocated, Deb Alvarez MD [address] [place] [address] PCP - General Family Medicine 12/18/23 Business Strategist Relationship Specialty Start Date End Date Unallocated, Deb Alvarez MD [address] [place], [place] [address] [address] PCP - General Family Medicine 12/18/23 Business Strategist Relationship Specialty Start Date End Date Unallocated, Deb Alvarez MD [address] [place], [place] [address] [address] PCP - General Family Medicine 12/18/23 Business Strategist Relationship Specialty Start Date End Date Unallocated, Deb Alvarez MD [address] [place] [address] [place] [address] PCP - General Family Medicine 12/18/23 Business Strategist Relationship Specialty Start Date End Date Unallocated, Deb Alvarez MD [facility] [place] [address] PCP - General Family Medicine 12/18/23 Business Strategist Relationship Specialty Start Date End Date Peter Sosa MD [address] [place] [address] PCP - General Family Medicine 03/17/25 Business Strategist Relationship Specialty Start Date End Date Peter Sosa MD [address] [place] [address] PCP - General Family Medicine 03/17/25 Team Status: Inactive Member Role Status Dates Peter Sosa DO Attending Provider Active Start: April 11, 2025 End: April 11, 2025 Business Strategist Relationship Specialty Start Date End Date Peter Sosa DO [address] [place] [address] PCP - General Family Medicine 04/28/25 Business Strategist Relationship Specialty Start Date End Date Peter Sosa DO [address] [place] [address] PCP - General Family Medicine 04/28/25 Goals (unrecognized section and content) Goals may [...] Care 2)Qmon CBC,SR,Creat,CRP, fax to Dr. Bryan [phone] 3)IV ATB for 42 days 4)Call Dr. [...] Disp #14 14 each 0 03/20/2023 03/20/2023 Prescription Sig Dispense Quantity Refills Last Filled Start Date End Date albuterol sulfate HFA (VENTOLIN HFA) 108 (90 Base) MCG/ACT inhaler Inhale 2 puffs into the lungs every 6 hours as needed for Wheezing 18 g 3 01/05/2025 albuterol (PROVENTIL) (2.5 MG/3ML) 0.083% nebulizer solution Take 3 mLs by nebulization 4 times daily as needed for Wheezing 120 each 3 01/05/2025 Scheduled Active and Recently Administ ered Medications (unrecognized section and content) Medication Order 10/04/2022 10/05/2022 10/06/2022 acetaminophen (TYLENOL) tablet 1,000 mg 1,000 mg, oral, Every 6 hours scheduled, First dose on Pina 10/02/22 at 2100, Recovery & On Unit 0628 (Given - Provider: Gloria Mohan RN)1339 (Given - Provider: Shawn Rinaldi RN)1711 (Given - Provider: Cindy Durand RN) 0022 (Given - Provider: Jn Guillory, MARIBELL)0551 (Given - Provider: Jn Guillory, MARIBELL)1248 (Not Given - Provider: Shawn Rinaldi RN - Reason: Other - Comment: tylenol max in 24 hours already given)1839 (Given - Provider: Shawn Rinaldi RN) 0043 (Given - Provider: Srinivasa Olvera, MARIBELL)0604 (Given - Provider: Srinivasa Olvera RN)1228 (Given - Provider: Brandy Mullen RN)1800 (Canceled Entry - Provider: Automatic [...] No 0820 (Given - Provider: Opal Carter, SOLAR SYSTEM INSTALLER)2058 (Given - Provider: Karla Azevedo) 0727 (Given - Provider: Opal Carter, CHRISTINA)2027 (Given - Provider: Berenice Carcamo RRT) 075 (Given - Provider: Alyse Jorge) gabapentin (NEURONTIN) capsule 300 mg 300 mg, oral, 3 times daily, First dose on Pina 10/02/22 at 2100 0854 (Given - Provider: Shawn Rinaldi RN)1339 (Given - Provider: Shawn Rinaldi RN)2016 (Given - Provider: Jn Guillory RN) 0838 (Given - Provider: Shawn Rinaldi RN)1504 [...] Shawn Rinaldi, RN)2015 (Given - Provider: Jn Guillory, RN) 08 (Given - Provider: Shawn Rinaldi RN)2117 (Given - Provider: Madonna Fiore, RN) 927 (Given - Provider: Brandy Mullen, MARIBELL) pantoprazole (PROTONIX) EC tablet 40 mg 40 mg, oral, 2 times daily, First dose on Pina 10/02/22 at 2100, Do not crush, chew, or [...] 2100 0854 (Given - Provider: Shawn Rinaldi RN)2015 (Given - Provider: Jn Guillory RN) 08 (Given - Provider: Shawn Rinaldi RN)2117 (Given - Provider: Madnona Fiore RN) 915 (Given - Provider: Brandy Mullen RN) sodium chloride 0.9 % flush 10 mL(Linked Group 1) 10 mL, intravenous, 2 times daily, First dose on Pina 10/02/22 at 1445, Recovery & On Unit 0858 (Given - Provider: Shawn Rinaldi RN)2100 (Canceled Entry - Provider: Automatic Discharge Provider - Comment: Automatically canceled at discontinue of medication order) 0840 (Given - Provider: Shawn Rinaldi RN)2143 (Given - Provider: Srinivasa Olvera RN) 0917 (Not Given - Provider: Brandy Mullen RN [...] Every 6 hours PRN, itching, Starting on [place] 10/05/22 at 1545 1601 (Given - Provider: Shawn Rinaldi RN)2121 (Given - Provider: Madonna Fiore RN) 0618 (Given - Provider: Srinivasa Olvera, MARIBELL)1521 (Given - Provider: Brandy Mullen, MARIBELL) glucagon injection 1 mg 1 mg, intramuscular, [...] 0822 (Given - Provider: Dora Cha RN) 0931 (Given - Provider: Charline Loera RN) 09 (Given - Provider: Jocelyn Muller RN) budesonide-formoteroL (SYMBICORT) 160-4.5 mcg/actuation inhaler 2 puff [...] Jorge)2039 (Given - Provider: Berenice Carcamo, CHRISTINA) 07 (Given - Provider: Alyse Jorge)2145 (Given - Provider: Nory Khan, CHRISTINA) 08 (Given - Provider: Nicole Ku) bumetanide [...] Patient/Resident/Agen t refused - education provided ) 09 (Given - Provider: Charline Loera RN)2016 (Not [...] MARIBELL) 0930 (Given - Provider: Charline Loera RN)2017 (Given - Provider: Gloria Mohan RN) 0910 (Not Given - Provider: Jocelyn Muller RN - Reason: Patient/Resident/Age nt refused - education provided ) gabapentin (NEURONTIN) capsule 300 mg 300 mg, oral, 3 times daily, First dose on Thu03/19/23 at 2100 0822 (Given - Provider: Dora Cha RN)1353 (Given - Provider: Dora Cha RN)2030 (Given - Provider: Pavan Linton RN) 0930 (Given - Provider: Charline Loera, RN)1444 (Given - Provider: Charline Loera RN)2017 [...] Tissue, Bone/Joint, Authorizing ID: Infectious Disease Physician/Fellow 0101 (New Bag - Provider: Kendal Wong RN)0822 (New Bag - Provider: Dora Cha RN)162 (New Bag - Provider: Dora Cha RN) 0108 (New Bag - Provider: Pavan Linton, MARIBELL)0936 (New Bag - Provider: Brandy Mullen RN - Comment: by MARIBELL Elias)162 (New Bag - Provider: Charline Loera RN) 0003 (New Bag - Provider: Gloria Mohan RN)0920 (New Bag - Provider: Jocelyn Muller, MARIBELL) pantoprazole (PROTONIX) EC tablet 40 mg 40 mg, oral, 2 times daily, First dose on Thu03/19/23 at 2100, Do not crush, chew, or split. 0822 (Given - Provider: Dora Cha RN)2030 (Given - Provider: Pavan Linton RN) 09 (Given - Provider: Charline Loera RN)2017 (Given - Provider: Gloria Mohan RN) 0920 (Given - Provider: Jocelyn Muller, MARIBELL) [...] Recovery & On Unit, Indication: VTE/PE Prophylaxis 1624 (Given - Provider: Dora Cha RN) 1639 (Given - Provider: Charline Loera, MARIBELL) senna (SENOKOT) tablet 8.6 mg 8.6 mg (1 tablet), oral, 2 times daily, First dose on Thu03/19/23 at 2100 0822 (Not Given - Provider: Dora Cha RN - Reason: Patient/Resident/Agen t refused - education provided )2030 (Given - Provider: Pavan Linton RN) 09 (Given - Provider: Charline Loera, MARIBELL)2017 (Given - Provider: Gloria Mohan RN) 0911 (Not Given - Provider: Jocelyn Muller RN - Reason: Patient/Resident/Age nt refused - education provided ) sodium chloride 0.9 % flush 10 mL(Linked Group 1) 10 mL, intravenous, 2 times daily, First dose on Thu03/19/23 at 2100, Recovery & On Unit 0823 (Given - Provider: Dora Cha RN)2032 (Not Given - Provider: Pavan Linton RN - Reason: Other - Comment: fluids running) 0930 (Given - Provider: Charline Loera, RN)2017 (Given - Provider: Gloria Mohan RN) 0920 (Given - Provider: Jocelyn Muller, MARIBELL) sodium chloride 0.9 % flush 10 mL 10 mL, intravenous, Every 8 hours, First dose on Thu03/20/23 at 1130, All lumens before and after use and as necessary. 0101 (Given - Provider: Kendal Wong RN)1056 (Given - Provider: Dora Cha RN)2032 (Not Given - Provider: Pavan Linton RN - Reason: Other - Comment: fluids running) 0414 (Not Given - Provider: Pavan Linton RN - Reason: Other - Comment: fluids running)1137 (Given - Provider: Charline Loera RN)2018 (Not Given - Provider: Gloria Mohan RN - Reason: Patient/Resident/Age nt refused - education provided ) 0003 (Given - Provider: Gloria Mohan RN)1109 (Pump Refill - Provider: Jocelyn Muller RN) topiramate (TOPAMAX) tablet 50 mg 50 mg, [...] Dora Cha RN) PRN Medication Order 03/23/2023 03/24/202303/2503/25/2023 acetaminophen (TYLENOL) tablet 650 mg 650 mg, [...] Once as needed, opioid reversal, Starting on Pina 03/19/23 at 1631, For 1 dose ondansetron (PF) (ZOFRAN) injection 4 mg 4 mg, intravenous, Every 6 hours PRN, nausea, vomiting, Starting on Pina 03/19/23 at 1631 oxyCODONE (ROXICODONE) immediate release tablet [...] intravenous, As needed, line care, Starting on Thu03/19/23 at 1506, Recovery & On Unit Group 2: oxyCODONE (ROXICODONE) immediate release tablet 10 mgJump to med 10 mg, oral, Every 4 hours PRN, moderate pain, Starting on Thu03/20/23 at 0641 Or oxyCODONE (ROXICODONE) immediate release tablet 20 mgJump to med 20 mg, oral, Every 4 hours PRN, severe pain, Starting on Thu03/20/23 at 0641 Scheduled Medication Order 01/04/2025 01/05/2025 01/06/2025 acetaminophen (TYLENOL) tablet 650 mg (COMPLETED) 650 mg, Oral, ONCE, 1 dose, On Pina 01/05/25 at 0645, Maximum dose of acetaminophen is 4000 mg from all sources in 24 hours., Pre-op (day of surgery) 0647 (Given - Provider: Ghazala Espana RN) allopurinol (ZYLOPRIM) tablet 200 mg 200 mg, Oral, DAILY, First dose on [place] 01/05/25 at 1345, Until Discontinued 1542 (Given - Provider: Brenda Vizcaino RN) 0802 (Given - Provider: Rocío Whiteside RN) bumetanide (BUMEX) tablet 1 mg 1 mg, Oral, 2 TIMES DAILY, First dose on [place] 01/05/25 at 1345, Until Discontinued, On hold since Thu01/05/2025 at 1325 until manually unheld 1325 (Held by provider - Provider: Danika Prince APRN - NIURKA - Reason: Other)1345 (Automatically Held)2100 (Automatically Held) 0900 (Automatically Held)2100 (Automatically Held) cetirizine (ZYRTEC) tablet 10 mg 10 mg, Oral, DAILY, First dose on [place] 01/05/25 at 1430, Until Discontinued 1544 (Given - Provider: Brenda Vizcaino RN) 0803 (Given - Provider: Rocío Whiteside RN) dextromethorphan-guaiFENesi n (MUCINEX DM) 30-600 MG per extended release tablet 1 tablet 1 tablet, Oral, 2 TIMES DAILY, First dose on Thu01/06/25 at 0900, Until Discontinued, Do not crush or break. 0801 (Given - Provid er: Rocío Whiteside RN)2100 (Due) dimenhyDRINATE (DRAMAMINE) tablet 50 mg (COMPLETED) 50 mg, Oral, ONCE, 1 dose, On Thu01/05/25 at 0645, Pre-op (day of surgery) 0647 (Given - Provider: Ghazala Espana RN) fluticasone (FLONASE) 50 MCG/ACT nasal spray 1 spray 1 spray, Each Nostril, 2 times daily, First dose on Thu01/05/25 at 1430, Until Discontinued, Pharmacists should automatically interchange the frequency from daily or QHS to Daily PRN when Flonase is ordered from a patient's home medication list. If it is not ordered from the home medication list, then do not change the ordered frequency. 154 (Given - Provider: Brenda Vizcaino RN)210 (Given - Provider: Marilyn Weinstein RN) 08 (Given - Provider: Rocío Whiteside RN)2100 (Due) gabapentin (NEURONTIN) capsule 300 mg (COMPLETED) 300 mg, Oral, ONCE, 1 dose, On Thu01/05/25 at 0645, Pre-op (day of surgery) 0647 (Given - Provider: Ghazala Espana RN) gabapentin (NEURONTIN) capsule 300 mg 300 mg, Oral, 3 TIMES DAILY, First dose on Thu01/05/25 at 1400, Until Discontinued 1543 (Given - Provider: Brenda Vizcaino RN)205 (Given - Provider: Marilyn Weinstein RN) 0802 (Given - Provider: Rocío Whiteside RN)1400 (Due)2100 (Due) magnesium oxide (MAG-OX) tablet 400 mg 400 mg, Oral, DAILY, First dose on Thu01/05/25 at 1345, Until Discontinued 1825 (Given - Provider: Marilyn Weinstein RN) 2200 (Due) pantoprazole (PROTONIX) tablet 40 mg 40 mg, Oral, 2 times daily, First dose on Thu01/05/25 at 1400, Until Discontinued, Do not crush or break. 1542 (Given - Provider: Brenda Vizcaino RN)193 (Not Given - Provider: Marilyn Weinstein RN - Reason: Patient/family refused) 08 (Given - Provider: Rocío Whiteside RN)2100 (Due) polycarbophil (FIBERCON) tablet 625 mg 625 mg, Oral, 2 TIMES DAILY, First dose on Pina 01/05/25 at 1400, Until Discontinued 154 (Not Given - Provider: Brenda Vizcaino RN - Reason: Patient/family refused)210 (Given - Provider: Marilyn Weinstein RN) 08 (Given - Provider: Rocío Whiteside RN)2100 (Due) tiZANidine (ZANAFLEX) tablet 4 mg 4 mg, Oral, NIGHTLY, First dose on Pina 01/05/25 at 2230, Until Discontinued 225 (Given - Provider: Marilyn Weinstein RN) 2100 (Due) topiramate (TOPAMAX) tablet 200 mg 200 mg, Oral, 2 TIMES DAILY, First dose on Pina 01/05/25 at 1400, Until Discontinued, It is not recommended to crush, break, or chew immediate release tablets due to bitter taste. 154 (Given - Provider: Brenda Vizcaino RN)210 (Given - Provider: Marilyn Weinstein RN) 08 (Given - Provider: Rocío Whiteside RN)2100 (Due) Continuous Medication Order 01/04/2025 01/05/2025 01/06/2025 0.9 % sodium chloride infusion (CANCELED) IntraVENous, at 100 mL/hr, CONTINUOUS, Starting on Pina 01/05/25 at 1345 1539 (New Bag - Provider: Brenda Vizcaino RN) 0359 (New Bag - Provider: Marilyn Weinstein RN)1004 (Stopped - Provider: Rocío Whiteside RN) lactated ringers infusion (CANCELED) IntraVENous, at 100 mL/hr, CONTINUOUS, Starting on Pina 01/05/25 at 0645, Pre-op (day of surgery) 0731 (New Bag - Provider: DIANE Ibarra CRNA)0742 (Stopped - Provider: DIANE Ibarra CRNA) PRN Medication Order 01/04/2025 01/05/2025 01/06/2025 albuterol sulfate HFA (PROVENTIL;VENTOLIN;PROAIR) 108 (90 Base) MCG/ACT inhaler 2 puff 2 puff, Inhalation, EVERY 6 HOURS PRN, Starting on Pina 01/05/25 at 1322, Until Discontinued, Wheezing, Initiate RT Bronchodilator Protocol: Yes - Inpatient Protocol BUPivacaine (MARCAINE) 0.5 % injection (CANCELED) PRN, Starting on Thu01/05/25 at 0752, Until Thu01/05/25 at 0753, Intra-op 075 (Given - Provider: Estrella Bryan MD) docusate sodium (COLACE) capsule 100 mg 100 mg, Oral, 2 TIMES DAILY PRN, Starting on Pina 01/05/25 at 1322, Until Discontinued, Constipation, Do not crush or break. 1st line therapy for constipation guaiFENesin-codeine (guaiFENesin AC) 100-10 MG/5ML liquid 5 mL 5 mL, Oral, EVERY 6 HOURS PRN, Starting on Thu01/06/25 at 0650, Until Discontinued, Cough, Congestion iohexol (OMNIPAQUE 240) IV/PO solution (CANCELED) PRN, Starting on Thu01/05/25 at 0751, Until Pina 01/05/25 at 0753, Intra-op 075 (Given - Provider: Estrella Bryan MD) oxyCODONE (ROXICODONE) immediate release tablet 5 mg 5 mg, Oral, EVERY 4 HOURS PRN, Starting on Thu01/05/25 at 1400, Until Discontinued, Pain Severe (7-10) sodium chloride (OCEAN, BABY AYR) nasal spray 1 spray 1 spray, Each Nostril, EVERY 4 HOURS PRN, Starting on Thu01/06/25 at 0650, Until Discontinued, Congestion temazepam (RESTORIL) capsule 15 mg 15 mg, Oral, NIGHTLY PRN, Starting on Thu01/05/25 at 2100, Until Discontinued, Sleep 2102 (Given - Provider: Marilyn Weinstein RN) triamcinolone acetonide (KENALOG) injection (CANCELED) PRN, Starting on Thu01/05/25 at 0751, Until Thu01/05/25 at 0753, Intra-op 0751 (Given - Provider: Estrella Bryan MD) FOR RECORDS PERTAINING TO PATIENTS WHO ARE [...] BE BASED ON THE PRIMARY CLINICAL RECORDS. [facility]. provides no warranty or guarantee of the accuracy or completeness of information in this document.
[2025-07-03 10:15] LABS: Hematocrit 38.4 % (36.0-48.0); Hemoglobin 12.2 g/dL (12.0-16.0); Mean Corpuscular HGB Conc 31.8 g/dL (29.9-35.2); Mean Corpuscular Hemoglobin 28.3 pg (26.7-34.0); Mean Corpuscular Volume 89.1 fL (81.0-99.0); Platelet Count 250 10^3/uL (150-450); Red Blood Count 4.31 10^6/uL (4.20-5.40); White Blood Count 6.6 10^3/uL (4.0-11.0)
[2025-07-03 10:25] LABS: Glucose Urine UA NEGATIVE (NEGATIVE)
[2025-07-03 10:45] LABS: Protein Creatinine Ratio Urine 0.29; Total Protein Urine Random 29.7 mg/dL (<=11.9)
[2025-07-03 10:48] LABS: Albumin Level 3.3 g/dL (3.4-5.0); Anion Gap 12.7; Blood Urea Nitrogen 33.0 mg/dL (7.0-18.0); Calcium 8.5 mg/dL (8.5-10.1); Carbon Dioxide 27.2 mmol/L (21.0-32.0); Chloride 107 mmol/L (98-107); Estimated GFR (African America >60 (>=60 mL/min/1.73m^2); Estimated GFR (Non-African Ame 50 (>=60 mL/min/1.73m^2); Glucose 100 mg/dL (74-106); Potassium 3.9 mmol/L (3.5-5.1); Sodium 143 mmol/L (136-145)
== END 2025-07-03 09:51 | disposition home or self-care (01) ==
LOC: LAB 09:50
PROVIDERS: PCP Family Medicine; Visit Provider Internal Medicine Nephrology
DX: D50.9 Iron deficiency anemia, unspecified (principal); N28.9 Disorder of kidney and ureter, unspecified
CPT/HCPCS: 36415; 80069; 81003; 82570; 83970; 84156; 85027

== ENCOUNTER 2025-07-08 11:18 | Outpatient (OUT) | payer MEDICARE, MEDICAID, SELFPAY ==
--- OUTSIDE RECORDS SUMMARY | 2025-07-08 11:25 | XMS_ITS | CCD ---
Author Organization [facility] Care Team Providers Care Web Content Producer Name Role Phone ITALO ANN Unavailable Unavailab [...] PETER Unavailable Unavailable BARBERANUSHA Unavailable Unavailable SOSA, PETER WILLIS Unavailable Unavailab le BARBER, ANUSHA Unavailable Unavailable SOSA, PETER WILLIS Unavailable Unavailab le Schwerer, Elda E Unavailable [phone] Unavailable Unavailable Yuan Romeo Unavailable Reynaldo Trejo Jr. Unavailable [phone] Schwerer, Elda Unavailable Schwerer, Elda Unavailable Schwerer, Elda Unavailable Laquita Medina Unavailable Marva Hunt Unavailable Reynaldo Trejo Unavailable Wes Jason Unavailable Mabel Ortega Unavailable DO Maryjo Elda E Primary Care Provider [phone] SupriyaFRANCKN Antonella Attending Provider DIANE Epps Other Provider SosaDO Peter escobedo Primary Care Provider [phone] MD Laquita Medina Attending Provider Sosa, DO Peter Harrell Attending Provider [phone] [facility] Deidra E Emergency Provider Sosa, Peter [...] Unavailable Sosa Peter BRYANT Primary Care Provider [phone] LEAH BARRERA Attending Unavailable DAPHNEY CONSTANTINO Attending Unavailable LEAH BARRERA Attending Unavailable Sosa Peter GAMING Attending Provider [phone] Sosa, Peter Harrell Attending Unavailable Sosa, Peter Harrell Admitting Unavailable Sosa Peter GAMING Primary Care Provider VLAD WADE Referring Unavailable MARYCRUZ, VLAD D [...] (disorder) 11-27-19 15 Wound, Hives, Itching, Rash [facility] Repository (1 source) penicillin; Translations: [PENICILLIN] Drug Allergy 06-30-20 17 AOF [facility] Repository (17 sources) Sulfonamides (Antibiotic); Translations: [SULFA (SULFONAMIDE ANTIBIOTICS)] Propensity to adverse reactions to drug (disorder) 08-29-20 09 Hives, Shortness of breath [facility] Repository (1 source) Adhesive agent; Translations: [adhesive] Propensity to adverse reactions (disorder) 02-19-20 12 AOF [facility] Repository (16 sources) Penicillins; Translations: [Penicillins] Drug allergy (disorder) 08-29-20 09 AOF, Hives, Hives, Rash, Swelling [facility] Repository (1 source) RED RX SINUS TABLET Drug allergy (disorder) 08-29-20 09 AOF [facility] Repository (20 sources) Aspirin; Translations: [Aspirin TABS] Drug Allergy 10-01-20 22 hives, Shortness of breath [facility] [employer] Other (2 sources) Penicillins; Translations: [Penicillins] Allergy to drug (finding) Hives, Itching, Rash, Other [facility] [employer] DO Work Phone: (4 sources) Sulfonamides (Antibiotic); Translations: [Sulfa Drugs] Allergy to drug (finding) Hives, Rash, Itching [facility] Repository (2 sources) Latex Exam Gloves MISC; Translations: [Latex Exam Gloves MISC] Allergy to drug (finding) Hives, Itching, Rash [facility] [employer] 250 DO Work Phone: (20 sources) Furosemide; Translations: [Lasix] Drug Allergy 02-20-20 21 Unknown [facility] Repository (20 sources) nabumetone Drug Allergy 01-05-20 24 Unknown, Unknown Reaction [facility] (20 sources) Penicillin G Drug Allergy 01-05-20 24 hives [facility] (20 sources) semaglutide Drug Allergy 01-05-20 24 dizziness, light headed, nausea [facility] (20 sources) Sulfacetamide Drug [facility]ergy [facility] [employer] Other (20 sources) ADHESIVES AND TAPES Propensity to adverse reactions 12-29-19 24 Unknown, [facility] (6 sources) Adhesive Tape; Translations: [Adhesive tape] Allergy to substance 11-27-19 15 [facility] (20 sources) Aspirin; Translations: [Aspirin] Drug Allergy 02-25-20 13 Hives, Shortness Of Breath, Rash [facility] (13 sources) Ibuprofen Drug Allergy 10-01-20 22 [...] Metal Agent Drug Allergy 10-01-20 22 Itching [facility] (6 sources) bandaids Propensity to adverse reactions rash [employer] Other (19 sources) DULoxetine Drug Allergy 01-05-20 24 Unknown, Unknown Reaction [facility] (12 sources) Nylon Propensity to adverse reactions 03-20-20 23 Itching, Rash [facility] (11 sources) Soap Propensity to adverse reactions 03-19-20 23 Rash [facility] (1 source) nabumetone Drug Allergy 02-20-20 21 [facility] Repository (2 sources) Sulfonamides (Antibiotic) Drug allergy (disorder) 02-25-20 13 [facility] Repository (1 source) Misc-Other; Translations: [Misc-Other] Propensity to adverse reactions (disorder) 07-27-20 17 [facility] Repository (7 sources) Furosemide Drug Allergy 01-05-20 24 [facility] (2 sources) Adhesive Tape; Translations: [Tape] Propensity to adverse reactions (disorder) [facility] Repository (1 source) Benzalkonium Drug Allergy 01-03-20 25 Rash [facility] (11 sources) nickel sulfate Drug Allergy 10-01-20 22 [facility] (11 sources) Sulfonamides (Antibiotic) Propensity to adverse reactions to drug 08-29-20 09 Hives, Shortness Of Breath, Itching, Rash, Unknown [facility] (11 sources) Wound Dressing Adhesive Propensity to adverse reactions to drug 10-01-20 22 [employer] (10 sources) Furosemide Drug Allergy 01-05-20 24 Rash [facility] (10 sources) nabumetone Drug Allergy 01-05-20 24 [facility] (10 sources) Penicillins Drug Allergy 08-29-20 09 Hives, Itching, Rash, Shortness of breath [facility] (10 sources) Semaglutide Allergy to substance 01-05-20 24 [facility] (9 sources) Benzalkonium Drug Allergy 01-03-20 25 Rash [facility] Medications Current Medications Medication Drug Class(es) Dates [...] Every 6 hours PRN, wheezing, Starting on [facility] 10/02/22 at 1416 Start: 05-09-2019 take 1 [...] mo ut every week Cholecalciferol 1.25 MG (35382 UT) TABS Take 1 capsule by mouth [...] Start: 02-27-2022 take 1 capsule by [facility] every twelve hours Doxycycline Hyclate 100 [...] 18-Dec-2021 DO Active take 1 tablet by [facility] once daily as needed Ferrous Sulfate 325 [...] Care 2)Qmon CBC,SR,Creat,CRP, fax to Dr. Bryan [phone] 3)IV ATB for 42 days 4)Call Dr. [...] (LIST CLEANUP) take 2 puff(s) by mo [facility] twice daily budesonide-formoteroL (SYMBICORT) 160-4.5 mcg/actuation [...] extended release oral tablet (1 source) Uncompetitive Y-zukgzn-F-asparta te Receptor Antagonist, Sigma-1 Agonist Start: 01-06-2025 [...] 50 mg, Oral, ONCE, 1 dose, On [facility] 01/05/25 at 0645, Pre-op (day of surgery) diphenhydrAMINE (3 sources) Histamine-1 Receptor Antagonist Start: 03-19-2023 End: 03-25-2023 take 25 mg intravenously every six hours as needed 25 mg, intravenous, Every 6 hours PRN, itching, Starting on [facility] 03/19/23 at 1631 Start: 03-19-2023 End: 03-25-2023 [...] Valera ( ) take 1 capsule by [facility] every twenty-four hours DULoxetine HCl 30 [...] Start: 05-27-2022 take 1 capsule by mo [facility] twice daily at mealtime Nitrofurantoin Monohyd/M-Cryst [...] Oral, 2 times daily, First dose on [facility] 01/05/25 at 1400, Until Discontinued, Do not crush or break. take 1 tablet by mouth before me altime pantoprazole (ProtoNix) 20 MG EC tablet Take 20 mg by mouth in the morning. Take before meals. Active polyethylene glycol 3350 07388 mg powder for oral solution (1 source) [...] 04-17-2023 rivaroxaban (XARELTO) tablet 10 mg sennosides, mcc 8.6 mg oral tablet (2 sources) Start: [...] disease (11 sources) Atherosclerotic heart disease of seminole coronary artery without angina pectoris; Translations: [Coronary [...] 2 Chronic Other aftercare (6 sources) Other [employer] (current) drug therapy; Translations: [OTH OUTCOME ANALYST CURRENT DRUG THERAPY] Onset: 2 Resolved: 2 Episodic Other aftercare (1 source) [facility] (current) use of antithrombotics/antiplat elets; Translations: [OUTCOME ANALYST ANTITHROMBOT/ANTIPLATLET S] Onset: 3 Episodic Other aftercare [...] sulfate fluticasone nasal (fluticasone 0.05 mg/inh Nasal [place]) gabapentin (gabapentin 300 mg Cap) hydrOXYzine magnesium [...] fluticasone nasal (fluticasone 0.05 mg/ inh Nasal [place]) 2 Sprays Nasal Inhalation Every day Contact [...] if quest (more content not included)... Normal [facility] Gastroenterology Office/Clin ic Noteon 06-13-2025 Gastroenterology Office/Clinic [...] examined esophagus. Empiric dilation with Delcid 54 Maldivian was done, no mucosal disruption was noted [...] EGD 05/2024: Empiric dilation with Delcid 54 [place] - Schedule EGD with Delcid dilation to [...] tab, Oral, Daily fluticasone 0.05 mg/inh Nasal [place], 2 spray(s), Nasal, Daily gabapentin 300 mg [...] influenza virus (more content not included)... Normal [facility] Comment on above: Result Comment: Elec tronically Signed By: Amanda Tyson MA\.br\Date and Time Signed: 06/13/25 10:58 EDT\.br\Electronically Co-Signed By: Darci BRYANT, Glen Ta\.br\Date and Time Co-Signed: 06/13/25 16:19 EDT C REACTIVE PROTEINon 025 CRP High sensitivity method [Mass/Vol] 4.44 mg/L NINF - 10.00 mg/L [facility] Interpretation and review of laboratory results Normal [facility] CRP [Mass/Vol] 4.44 mg/L Normal <10.00 [facility] Comment on above: Performed By: #### C RP #### [facility] (DEFAULT) [address] [place] [address] CBC,PLATELETSon 04-28-2025 Erythrocyte distribution width (RBC) [Ratio] 14.2 % 10.8 - 14.9 % [facility] Hematocrit (Bld) [Volume fraction] 39.5 % 34.9 - 44.3 % [facility] Hemoglobin (Bld) [Mass/Vol] 12.5 g/dL 11.4 - 15.2 g/dL [facility] Interpretation and review of laboratory results Normal [facility] MCH (RBC) [Entitic mass] 27.7 pg 25.9 - 33.9 pg [facility] MCHC (RBC) [Mass/Vol] 31.6 g/dL 31.4 - 35.9 g/dL [facility] MCV (RBC) [Entitic vol] 87.4 fL 79.6 - 97.7 fL [facility] Platelet mean volume (Bld) [Entitic vol] 11.6 fL 8.5 - 12.2 fL [facility] Platelets (Bld) [#/Vol] 232 10*3/uL 150 - 393 K/uL [facility] RBC (Bld) [#/Vol] 4.52 10*6/uL [facility] WBC (Bld) [#/Vol] 8.1 10*3/uL 3.99 - 11.19 K/uL [facility] Hematocrit (Bld) [Volume fraction] 39.5 % Normal 34.9-44.3 [facility] Comment on above: Performed By: #### H EMO #### [facility] (DEFAULT) [address] [place] [address] Hemoglobin (Bld) [Mass/Vol] 12.5 g/dL Normal 11.4-15.2 [facility] Comment on above: Performed By: #### H EMO #### [facility] (DEFAULT) [address] [place] [address] MCV (RBC) [Entitic vol] 87.4 fL Normal 79.6-97.7 [facility] Comment on above: Performed By: #### H EMO #### [facility] (DEFAULT) [address] [place] [address] Mean Cell Hgb 27.7 pg Normal 25.9-33.9 [facility] Comment on above: Performed By: #### H EMOGC #### [facility] (DEFAULT) [address] [place] [address] Mean Cell Hgb Conc 31.6 g/dL Normal 31.4-35.9 [facility] Comment on above: Performed By: #### H EMOGC #### [facility] (DEFAULT) [address] [place] [address] Platelet mean volume (Bld) [Entitic vol] 11.6 fL Normal 8.5-12.2 [facility] Comment on above: Performed By: #### H EMOGC #### [facility] (DEFAULT) [address] [place] [address] Platelets (Bld) [#/Vol] 232 10*3/uL Normal 150-393 [facility] Comment on above: Performed By: #### H EMOGC #### [facility] (DEFAULT) [address] [place] [address] RBC (Bld) [#/Vol] 4.52 10*6/uL Normal 3.91-5.04 [facility] Comment on above: Performed By: #### H EMOGC #### [facility] (DEFAULT) [address] [place] [address] RBC Distribution 14.2 % Normal 10.8-14.9 [facility] Comment on above: Performed By: #### H EMOGC #### [facility] (DEFAULT) [address] [place] [address] WBC (Bld) [#/Vol] 8.10 10*3/uL Normal 3.99-11.19 [facility] Comment on above: Performed By: #### H EMOGC #### [facility] (DEFAULT) [address] [address] SEDIMENTATION RATE, AUTOMATE Don 04-28-2025 ESR (Bld) [Velocity] 26 mm/h [facility] Interpretation and review of laboratory results Normal [facility] ESR Westergren 26 mm/hr Normal <30 [facility] Comment on above: Performed By: #### E SR #### [facility] (DEFAULT) [address] [address] XR HIP LEFT 2-3 VIEWSon 04-18 XR [...] neck/greater trochanter, possibly related to prior trauma. [facility] XR Hip - left 2 Viewson 04-18 [...] neck/greater trochanter, possibly related to prior trauma. [facility] Radiology Study observation (narrative) [facility] XR Hip - left 2 ViewsOrdered By: Wu Cole on 04-28-2025 [facility] Work Phone: XR KNEE LEFT 3+ VIEWS [...] heterotopic ossification versus intra-articular loose bodies. Normal [facility] XR Knee - bilateral Views W standingon [...] Posterior heterotopic ossification versus intra-articular loose bodies. [facility] (narrative) [facility] Urine Cultureon 04-11-2025 Bacteria identified Cx Nom (U) <9,000 colonies/ml mixed bacterial skin contaminants 2 Days PERFORMED BY: [place] [address] PATHOLOGIST BEFORE AND AFTER SCHOOL DAYC[employer] WORKER ADILSON FRAZIER M.D. Normal [facility] Comment on above: Performed By: #### C UU #### [address] No Panel Informationon 03-14 [employer] Audiometry Audio indicated a mild to severe sensorineural hearing loss, bilaterally. [facility] US Thyroid glandon [place] [id number] Ultrasound Report Signed Patient: RENUKA GRAHAM MR#: [id number] : 1955 Acct:[id number] Age/Sex: 69 / F ADM Date: 01/24/25 Loc: US Attending Dr: Leah Barrera M.D. Ordering Physician: Leah Barrera M.D. Date of Service: 01/24/25 Procedure(s): US thyroid Accession Number(s): [id number] cc: PETER SOSA D.O.; Leah Barrera M.D. [address] [address] Patient Name: RENUKA GRAHAM MRN: [id number] date: 1955 Sex: F Assigned Patient Location: US Current Patient Location: US Accession/Order Number: [id number] Exam Date: 01/24/2025 12:07 Report Date: 01/24/2025 [...] Tate Jr., D.O.01/24/2025 12:12 PM Dictation Location: [place] [address] Electronically authenticated by: [id number] Y Date: 01/24/2025 12:12 Dictated By: Carlos Tate M.D. Signed By: 01/24/25 1215 DD/ 1212 TD/TT: Drill Press Hand: [facility] Radiology, Radiologi MD hipolito - 01/24/2025 [place] [address] Ultrasound Report Signed Patient: RENUKA GRAHAM MR#: [id number] : 1955 Acct:[id number] Age/Sex: 69 / F ADM Date: 01/24/25 Loc: US Attending Dr: Leah Barrera M.D. Ordering Physician: Leah Barrera M.D. Date of Service: 01/24/25 Procedure(s): US thyroid Accession Number(s): [id number] cc: PETER SOSA D.O.; Leah Barrera M.D. The [place] [id number] Patient Name: RENUKA GRAHAM MRN: [facility]:[id number] date: 1955 Sex: F Assigned Patient Location: US Current Patient Location: US Accession/Order Number: [id number] Exam Date: 01/24/2025 12:07 Report Date: 01/24/2025 [...] Tate Jr., D.O.01/24/2025 12:12 PM Dictation Location: [place] [address] Electronically authenticated by: [id number] Y Date: 01/24/2025 12:12 Dictated By: Carlos Tate M.D. Signed By: 01/24/25 1215 DD/ 1212 TD/TT: Drill Press Hand: [facility] Radiology Study observation (narrative) [facility] US Thyroid glandOrdered By: Radiologist Radiology on 01-24-2025 [facility] Work Phone: EKG Rhythm Stripon [facility] Basic Metab w/rfx MGon 01-05 Anion gap [Moles/Vol] 9 mmol/L Normal 9-16 [facility] Comment on above: Performed By: #### B MPX, CDP #### [facility] [address] [place] [address] Media Analyst: Anusha Lea MD Calcium [Mass/Vol] 8.7 mg/dL Normal 8.6-10.4 [facility] Comment on above: Performed By: #### B MPX, CDP #### [facility] [address] [place] [address] Media Analyst: Anusha Lea MD Chloride [Moles/Vol] 109 mmol/L High 98-107 [facility] Comment on above: Performed By: #### B MPX, CDP #### [address] [place] [address] Media Analyst: Anusha Lea MD CO2 [Moles/Vol] 23 mmol/L Normal 20-31 [facility] Comment on above: Performed By: #### B MPX, CDP #### [address] [place] [address] Media Analyst: Anusha Lea MD Creatinine [Mass/Vol] 1.0 mg/dL High 0.50-0.90 [facility] Comment on above: Performed By: #### B MPX, CDP #### [address] [place] [address] Media Analyst: Anusha Lea MD Glucose [Mass/Vol] 166 mg/dL High 74-99 [facility] Comment on above: Performed By: #### B MPX, CDP #### [address] [place], [place] [id number] Media Analyst: Anusha Lea MD Potassium [Moles/Vol] 4.1 mmol/L Normal 3.7-5.3 [facility] Comment on above: Performed By: #### B MPX, CDP #### [address] [place], [place] [address] Media Analyst: Anusha Lea MD Sodium [Moles/Vol] 141 mmol/L Normal 136-145 [facility] Comment on above: Performed By: #### B MPX, CDP #### [address] [place] [address] Media Analyst: Anusha Lea MD Urea nitrogen [Mass/Vol] 19 mg/dL Normal 8-23 [facility] Comment on above: Performed By: #### B MPX, CDP #### [facility] [address] [place] [address] Media Analyst: Anusha Lea MD BUN/CRE Ratio 19 Normal 07-08 [facility] Comment on above: Performed By: #### B MPX, CDP #### [facility] [address] [place] [address] Media Analyst: Anusha Lea MD GFR/1.73 sq M.predicted among non-blacks MDRD (S/P/Bld) [Vol rate/Area] 60 mL/min/{1.73_m2} Low >60 [facility] Comment on above: Result Comment: These results [...] Performed By: #### B MPX, CDP #### [facility] [address] [place] [address] Media Analyst: Anusha Lea MD Basic Metabolic Panel w/ Ref vale to MGon 01-05-2025 Est, Glom Filt Rate 60 Low - PIN[facility] Comment on above: These results are not [...] Interpretation and review of laboratory results Abnormal [facility] Urea nitrogen/Creatinine [Mass ratio] 19 mg/mg [facility] CBC with Auto Differentialon 01-05-2025 Basophils (Bld) [#/Vol] 0 10*3/uL [facility] Basophils/100 WBC (Bld) 0 % 0 - 2 % [facility] Eosinophils (Bld) [#/Vol] 0.04 10*3/uL [facility] Eosinophils/100 WBC (Bld) 1 % 1 - 4 % [facility] Erythrocyte distribution width (RBC) [Ratio] 14 % 11.8 - 14.4 % [facility] Hematocrit (Bld) [Volume fraction] 35.2 % Low 36.3 - 47.1 % [facility] Hemoglobin (Bld) [Mass/Vol] 11.2 g/dL Low 11.9 - 15.1 g/dL [facility] Immature granulocytes (Bld) [#/Vol] 0 10*3/uL [facility] Immature granulocytes/100 WBC (Bld) 0 % 0 [facility] Interpretation and review of laboratory results Abnormal [facility] Lymphocytes/100 WBC (Bld) 10 % Low 24 - 43 % [facility] Lymphocytes/100 WBC (Bld) 0.44 % Low [facility] MCH (RBC) [Entitic mass] 28.4 pg 25.2 - 33.5 pg [facility] MCHC (RBC) [Mass/Vol] 31.8 g/dL 28.4 - 34.8 g/dL [facility] MCV (RBC) [Entitic vol] 89.3 fL 82.6 - 102.9 fL [facility] Monocytes/100 WBC (Bld) 1 % Low 3 - 12 % [facility] Monocytes/100 WBC (Bld) 0.04 % Low [facility] Morphology Jeff (Bld) [Interp] Normal [facility] Neutrophils/100 WBC (Bld) 88 % High 36 - 65 % [facility] Nucleated RBC/100 WBC (Bld) [Ratio] 0 % 0.0 per 100 WBC [facility] Platelet mean volume (Bld) [Entitic vol] 10.3 fL 8.1 - 13.5 fL [facility] Platelets (Bld) [#/Vol] 171 10*3/uL [facility] RBC (Bld) [#/Vol] 3.94 10*6/uL Low 3.95 - 5.11 m/uL [facility] Segmented neutrophils/100 WBC (Bld) 3.88 % [facility] WBC other (Bld) [#/Vol] 4.4 [facility] CBC with Diffon 01-05-2025 Abs. Basophil 0.00 k/uL Normal 0.0-0.2 [facility] Comment on above: Performed By: #### B MPX, CDP #### [facility] [address] [place], [place] [address] Media Analyst: Anusha Lea MD Abs.Imm.Granulocyte 0.00 k/uL Normal 0.00-0.30 [facility] Comment on above: Performed By: #### B MPX, CDP #### [address] [place], [place] [id number] Media Analyst: Anusha Lea MD Abs.Neutrophil (Seg) 3.88 k/uL Normal 1.50-8.10 [facility] Comment on above: Performed By: #### B MPX, CDP #### [address] [place], [place] [id number] Media Analyst: Anusha Lea MD Basophils/100 WBC (Bld) 0 % Normal 0-2 [facility] Comment on above: Performed By: #### B MPX, CDP #### [facility] [address] [place] [address] [place], [place] [id number] Media Analyst: Anusha Lea MD Eosinophils (Bld) [#/Vol] 0.04 10*3/uL Normal 0.00-0.44 [facility] Comment on above: Performed By: #### B MPX, CDP #### [facility] [address] [place] [address] Media Analyst: Anusha Lea MD Eosinophils/100 WBC (Bld) 1 % Normal 1-4 [facility] Comment on above: Performed By: #### B MPX, CDP #### [facility] [address] [place], [place] [id number] Media Analyst: Anusha Lea MD Immature granulocytes/100 WBC (Bld) 0 % Normal 0 [facility] Comment on above: Performed By: #### B MPX, CDP #### [facility] [address] [place], [place] [id number] Media Analyst: Anusha Lea MD Lymphocytes (Bld) [#/Vol] 0.44 10*3/uL Low 1.10-3.70 [facility] Comment on above: Performed By: #### B MPX, CDP #### [facility] [address] [place], [place] [id number] Media Analyst: Anusha Lea MD Lymphocytes/100 WBC (Bld) 10 % Low 24-43 [facility] Comment on above: Performed By: #### B MPX, CDP #### [facility] [address] [place] [address] Dr. [place], [place] [id number] Media Analyst: Anusha Lea MD Monocytes (Bld) [#/Vol] 0.04 10*3/uL Low 0.10-1.20 [facility] Comment on above: Performed By: #### B MPX, CDP #### [facility] [address] [place], [place] [id number] Media Analyst: Anusha Lea MD Monocytes/100 WBC (Bld) 1 % Low 3-12 [facility] Comment on above: Performed By: #### B MPX, CDP #### [facility] [address] [place], [place] [id number] Media Analyst: Anusha Lea MD Morphology Jeff (Bld) [Interp] Normal Normal [facility] Comment on above: Performed By: #### B MPX, CDP #### [facility] [address] [place], [facility]83 Media Analyst: Anusha Lea MD Neutrophil (Seg) 88 % High 36-65 [facility] Comment on above: Performed By: #### B MPX, CDP #### [facility] [address] [place] [address] [place] [address] Media Analyst: Anusha Lea MD Erythrocyte distribution width (RBC) [Ratio] 14.0 % Normal 11.8-14.4 [facility] Comment on above: Performed By: #### B MPX, CDP #### [address] [place] [address] Media Analyst: Anusha Lea MD Hematocrit (Bld) [Volume fraction] 35.2 % Low 36.3-47.1 [facility] Comment on above: Performed By: #### B MPX, CDP #### [address] [place] [address] Media Analyst: Anusha Lea MD Hemoglobin (Bld) [Mass/Vol] 11.2 g/dL Low 11.9-15.1 [facility] Comment on above: Performed By: #### B MPX, CDP #### [address] [place], [place] [id number] Media Analyst: Anusha Lea MD MCH (RBC) [Entitic mass] 28.4 pg Normal 25.2-33.5 [facility] Comment on above: Performed By: #### B MPX, CDP #### [address] [place] [address] Media Analyst: Anusha Lea MD MCHC (RBC) [Mass/Vol] 31.8 g/dL Normal 28.4-34.[address] [facility] Comment on above: Performed By: #### B MPX, CDP #### [address] [place] [address] Media Analyst: Anusha Lea MD MCV (RBC) [Entitic vol] 89.3 fL Normal 82.6-102.9 [facility] Comment on above: Performed By: #### B MPX, CDP #### [address] [place] [address] Media Analyst: Anusha Lea MD NRBC Automated 0.0 per 100 WBC Normal 0.0 [facility] Comment on above: Performed By: #### B MPX, CDP #### [address] [place], [place] 1935483 Media Analyst: Anusha Lea MD Platelet mean volume (Bld) [Entitic vol] 10.3 fL Normal 8.1-13.5 [facility] Comment on above: Performed By: #### B MPX, CDP #### [address] [place], [place] [id number] Media Analyst: Anusha Lea MD Platelets (Bld) [#/Vol] 171 10*3/uL Normal 138-453 [facility] Comment on above: Performed By: #### B MPX, CDP #### [address] [place], [place] [id number] Media Analyst: Anusha Lea MD RBC (Bld) [#/Vol] 3.94 10*6/uL Low 3.95-5.11 [facility] Comment on above: Performed By: #### B MPX, CDP #### [address] [place], [place] 4503883 Media Analyst: Anusha Lea MD WBC (Bld) [#/Vol] 4.4 10*3/uL Normal 3.5-11.3 [facility] Comment on above: Performed By: #### B MPX, CDP #### [address] [place] [address] Media Analyst: Anusha Lea MD Cardiac echo study Procedure Ordered By: Nelia Carlos on 01-05-2025 Aortic Sinus Valsalva 2.8 cm [employer] Phone: Aortic Sinus Valsalva Index 1.41 cm/m2 Bon [employer] Work Phone: AV Cusp Mmode 1.7 cm [employer] Phone: AV Mean Gradient 5 mmHg Bon [employer] Work Phone: AV Mean Velocity 1 m/s [facility] [employer] Work Phone: AV Peak Gradient 9 mmHg [facility] [employer] Work Phone: AV Peak Velocity 1.5 m/s [facility] [employer] Work Phone: AV Velocity Ratio 0.87 [employer] Phone: AV VTI 33.4 cm [employer] Phone: Body surface area Derived from formula 2.08 m2 [employer] Work Phone: E/E' Lateral 10.84 [employer] Phone: EF BP 62 % 55 - 100 % [employer] Work Phone: EF Physician 60 % [employer] Phone: Fractional Shortening 2D 31 % 28 - 44 % [employer] Phone: Interpretation and review of laboratory results Abnormal [employer] Phone: IVSd 1.1 cm Abnormal 0.6 - 0.9 cm [employer] Phone: LA Area 2C 16.9 cm2 [employer] Phone: LA Area 4C 14.9 cm2 [employer] Phone: LA Major Lodi 4.9 cm [employer] Phone: LA Minor Lodi 5 cm [employer] Work Phone: LA Volume BP 41 mL 22 - 52 mL [employer] Work Phone: LA Volume Index BP 21 ml/m2 16 - 34 ml/m2 [facility] [employer] Work Phone: LA Volume Index MOD A2C 24 ml/m2 16 - 34 ml/m2 [employer] Work Phone: LA Volume Index MOD A4C 18 ml/m2 16 - 34 ml/m2 [employer] Work Phone: LA Volume MOD A2C 47 mL 22 - 52 mL [employer] Work Phone: LA Volume MOD A4C 35 mL 22 - 52 mL [employer] Phone: LV E' Lateral Velocity 7.29 cm/s [employer] Phone: LV EDV A2C 88 mL [employer] Work Phone: LV EDV A4C 73 mL [employer] Work Phone: LV EDV Index A2C 44 mL/m2 [employer] Work Phone: LV EDV Index A4C 37 mL/m2 [employer] Work Phone: LV Ejection Fraction A2C 63 % [employer] Work Phone: LV Ejection Fraction A4C 55 % [employer] Work Phone: LV ESV A2C 33 mL [employer] Work Phone: LV ESV A4C 33 mL [employer] Work Phone: LV ESV Index A2C 17 mL/m2 Bon [employer] Work Phone: LV ESV Index A4C 17 mL/m2 [employer] Work Phone: LV Mass 2D 175 g Abnormal 67 - 162 g [employer] Work Phone: LV Mass 2D Index 87.9 g/m2 43 - 95 g/m2 [employer] Work Phone: LV RWT Ratio 0.49 Bon [employer] Phone: LVIDd 4.5 cm 3.9 - 5.3 cm [employer] Work Phone: LVIDd Index 2.26 cm/m2 [employer] Work Phone: LVIDs 3.1 cm [facility] [employer] Work Phone: LVIDs Index 1.56 cm/m2 [employer] Work Phone: LVOT Mean Gradient 3 mmHg Bon [employer] Work Phone: LVOT Peak Gradient 6 mmHg [employer] Phone: LVOT Peak Velocity 1.3 m/s [facility] [employer] Phone: LVOT VTI 29.4 cm Bon [employer] Phone: LVOT:AV VTI Index 0.88 Bon [facility] [employer] Phone: LVPWd 1.1 cm Abnormal 0.6 - 0.9 cm [employer] Phone: MV A Velocity 1 m/s [facility] [employer] Phone: MV E Velocity 0.79 m/s [facility] [employer] Work Phone: MV E Wave Deceleration Time 232 ms [employer] Work Phone: MV E/A 0.79 [employer] Phone: PV Max Velocity 0.9 m/s [facility] [employer] Work Phone: PV Peak Gradient 3 mmHg [facility] [employer] Phone: TAPSE 3.1 cm 1.7 cm [facility] [employer] Work Phone: Bon [employer] Work Phone: Cardiac echo study Procedure on [...] Image quality: adequate. No contrast was given. [facility] CV CPACS Radiology Study observation (narrative) [employer] EKG 12 LeadOrdered By: Bonnie Harrell hmad on 01-05-2025 Atrial Rate 49 BPM [employer] Phone: P Lodi 58 degrees [employer] Phone: P-R Interval 188 ms [employer] Phone: Q-T Interval 488 ms [employer] Phone: QRS Duration 134 ms [employer] Phone: QTc Calculation (Bazett) 440 ms [employer] Phone: R Lodi -63 degrees [employer] Phone: T Lodi 82 degrees [employer] Phone: Ventricular Rate 49 BPM [facility] Work Phone: Mars Carrion [facility] Work Phone: EKG 12 Leadon 01-05-2025 Sinus bradycardia Left axis deviation Non-specific intra-ventricular conduction block Cannot rule out Anterior infarct , age undetermined Abnormal ECG No previous ECGs available Confirmed by Bonnie Dawkins MD ([id number]) on 01/05/2025 10:57:39 AM [facility] RAD[facility] Bonnie Dawkins MD - 01/05/2025 Sinus bradycardia Left axis deviation Non-specific intra-ventricular conduction block Cannot rule out Anterior infarct , age undetermined Abnormal ECG No previous ECGs available Confirmed by Bonnie Dawkins MD ([id number]) on 01/05/2025 10:57:39 AM [facility] EKG Rhythm Stripon [facility] LAB [facility] FLUORO FOR SURGICAL PROCEDUR ESon 01-05-2025 FLUORO FOR SURGICAL PROCEDURES Radiology exam is complete. No Radiologist dictation. Please follow up with ordering provider. Final result Normal [facility] Glucose, Whole Bloodon 01-05 Glucose [Mass/Vol] 136 mg/dL High 74 - 100 mg/dL [facility] Interpretation and review of laboratory results Abnormal [facility] Glucose [Mass/Vol] 136 mg/dL High 74-100 [facility] Guidance-- during surgeryon 01-05-2025 Radiology exam is complete. No Radiologist dictation. Please follow up with ordering provider. [facility] RIS CONSOLIDATED Microscopic Urinalysison Epithelial cells LM.HPF (Urine sed) [#/Area] 0 TO 2 [facility] RBC LM.HPF (Urine sed) [#/Area] None [facility] WBC LM.HPF (Urine sed) [#/Area] None [facility] UA w/Reflex Cultureon 2024 Bilirubin, SemiQt,Ur Negative Normal NEG [facility] Comment on above: Performed By: #### U AX, UMICAO #### [facility] [address] [place], [place] [id number] Media Analyst: Anusha Lea MD Blood, Urine Negative Normal NEG [facility] Comment on above: Performed By: #### U AX, UMICAO #### [facility] [address] [place], [place] [id number] Media Analyst: Anusha Lea MD Clarity (U) Clear Normal CLEAR [facility] Comment on above: Performed By: #### U AX, UMICAO #### [facility] [address] [place], [place] [id number] Media Analyst: Anusha Lea MD Color (U) Yellow Normal YEL [facility] Comment on above: Performed By: #### U AX, UMICAO #### [facility] [address] [place], [place] [id number] Media Analyst: Anusha Lea MD Glucose Ql (U) Negative Normal NEG [facility] Comment on above: Performed By: #### U AX, UMICAO #### [facility] [address] [place] [address] [place]. [place], [place] [id number] Media Analyst: Anusha Lea MD Ketones Ql (U) Negative Normal NEG [facility] Comment on above: Performed By: #### U AX, UMICAO #### [facility] [address] [place], [place] [id number] Media Analyst: Anusha Lea MD Leukocyte esterase Test strip Ql (U) Negative Normal NEG [facility] Comment on above: Performed By: #### U AX, UMICAO #### [facility] [address] [place], [place] 1998[address] Media Analyst: Anusha Lea MD Nitrite,Ur Negative Normal NEG [facility] Comment on above: Performed By: #### U AX, UMICAO #### [facility] [address] [place], [place] [id number] Media Analyst: Anusha Lea MD PH,Ur 7.5 Normal 5.0-9.0 [facility] Comment on above: Performed By: #### U AX, UMICAO #### [facility] [address] [place], [place] 1297383 Media Analyst: Anusha Lea MD Protein Ql (U) Negative Normal NEG [facility] in Hospital Comment on above: Performed By: #### U AX, UMICAO #### [facility] [address] [place], [place] 7953383 Media Analyst: Anusha Lea MD Spec. [place],Ur <1.005 Low 1.010-1.02 0 [facility] Comment on above: Performed By: #### U AX, UMICAO #### [facility] [address] [place], [place] [id number] Media Analyst: Anusha Lea MD Urobilinogen,Ur Normal Normal 0.0-1.0 [facility] Comment on above: Performed By: #### U AX, UMICAO #### [facility] [address] [place] [address] Dr. [place], [place] [id number] Media Analyst: Anusha Lea MD Urinalysis with Reflex to Cu ltureon 01-05-2025 Bilirubin Ql (U) Negative NEGATIVE Bon [facility] Clarity (U) Clear Clear [facility] Color (U) Yellow Yellow [facility] Glucose Test strip (U) [Mass/Vol] Negative NEGATIVE mg/dL [facility] Hemoglobin Auto test strip Ql (U) Negative NEGATIVE [facility] Interpretation and review of laboratory results Abnormal [facility] Ketones (U) [Mass/Vol] Negative NEGAT JUNIOR mg/dL [facility] Leukocyte esterase Test strip Ql (U) Negative NEGATIVE Bon [facility] Nitrite Ql (U) Negative NEGATIVE [facility] pH (U) 7.5 [pH] 5.0 - 9.0 [facility] Protein (U) [Mass/Vol] Negative NEGAT JUNIOR mg/dL [facility] Specific gravity (U) [Rel density] Low 1.010 - 1.020 [facility] Urobilinogen Qn (U) Normal 0.0 - 1. 0 EU/dL [facility] Urinalysis,Microon 5 Epithelial cells LM Ql (Urine sed) 0 TO 2 Normal 0-25 [facility] Comment on above: Performed By: #### U AX, UMICAO #### [facility] [address] [place] [address] Media Analyst: Anusha Lea MD Urine RBC's None Normal 0-2 [facility] Comment on above: Performed By: #### U AX, UMICAO #### [facility] [address] [place] [address] Media Analyst: Anusha Lea MD Urine WBC's None Normal 0-5 [facility] Comment on above: Performed By: #### U AX, UMICAO #### [facility] [address] [place] [address] Media Analyst: Anusha Lea MD XR CHEST (2 VW)on [...] Lucila Westfall MD 01/05/25 Final result Normal [facility] XR Chest 2 Viewson 5 No acute process. [facility] RIS CONSOLIDATED EXAMINATION: TWO XRAY VIEWS OF THE CHEST 01/05/2025 1:51 pm COMPARISON: None. HISTORY: ORDERING SYSTEM PROVIDED HISTORY: hypotension TECHNOLOGIST PROVIDED HISTORY: hypotension FINDINGS: The lungs are without acute focal process. There is no effusion or pneumothorax. The cardiomediastinal silhouette is without acute process. The osseous structures are without acute process. [facility] Lucila Arevalo MD - 01/05/2025 EXAMINATION: TWO XRAY VIEWS OF THE CHEST 01/05/2025 1:51 pm COMPARISON: None. HISTORY: ORDERING SYSTEM PROVIDED HISTORY: hypotension TECHNOLOGIST PROVIDED HISTORY: hypotension FINDINGS: The lungs are without acute focal process. There is no effusion or pneumothorax. The cardiomediastinal silhouette is without acute process. The osseous structures are without acute process. IMPRESSION: No acute process. [facility] Radiology Study observation (narrative) [facility] XR Chest 2 ViewsOrdered By: Lucila Westfall on 01-05-2025 [facility] Work Phone: Cult,Aerobe/Anaerobeon 11-19 Cult,Aerobe/Anaerobe Specimen Descriptio n .JOINT FLUID .KNEE LEFT 6.8mL Special Requests .JOINT FLUID .KNEE LEFT Direct Exam FEW NEUTROPHILS NO ORGANISMS SEEN Culture NO GROWTH 5 DAYS Report Status FINAL 11/19/2024 Normal [facility] Comment on above: Performed By: #### A ANC #### [facility] [employer] [address] [place] [address] Media Analyst: Rocco Salas MD [facility] [address] [place] [address] [place] [address] Media Analyst: Anusha Lea MD Crystals, Fluidson 5 Crystals,Fluid Negative Normal NEG [facility] in Hospital Comment on above: Result Comment: NO C RYSTALS SEEN Performed By: #### F LCRYS #### [facility] [employer] [address] [place] [address] Media Analyst: Rocco Salas MD [facility] [address] [place] [address] [place] [address] Media Analyst: Anusha Lea MD #### FLDCT #### [facility] [address] [place], [place] [id number] Media Analyst: Anusha Lea MD Pathologist Review: ELECTRONICALLY AUSTIN ALDRICH M.D. Normal [facility] Comment on above: Performed By: #### F LCRYS #### [facility] [address] [place] [address] Media Analyst: Rocco Salas MD [facility] [address] [place] [address] [place], [place] [address]83 Media Analyst: Anusha Lea MD #### FLDCT #### [facility] [address] [place] [address] [place] [address] Media Analyst: Anusha Lea MD Cell Count with Differential , Body Fluidon 11-14-2024 Appearance (Body fld) SLIGHTLY CLOUDY [facility] Blasts/100 WBC (Body fld) 0 % [facility] Cells Counted 50 [facility] Color (Body fld) Yellow [facility] Eosinophils/100 WBC (Body fld) 0 % [facility] Fluid Nom (Body fld) .JOINT FLUID Misha n [facility] Interpretation and review of laboratory results Abnormal [facility] Lymphocytes/100 WBC (Body fld) 72 % High 0 Bon [facility] Monocytes/100 WBC (Body fld) 0 % [facility] Neutrophils/100 WBC (Body fld) 28 % High 0 [facility] RBC (Body fld) [#/Vol] 8000 10*3/uL cells/uL [facility] Unidentified cells/100 WBC (Body fld) 0 % [facility] WBC (Body fld) [#/Vol] 156 10*3/uL cells/uL [facility] Fluid Cell Count and Diffon 11-14-2024 Basophils Normal 0 [facility] Comment on above: Performed By: #### F LCRYS #### [facility] [address] [place] [address] Media Analyst: Rocco Salas MD [facility] [address] [place] [address] [place] [address] Media Analyst: Anusha Lea MD #### FLDCT #### [facility] [address] [place] [address] Media Analyst: Anusha Lea MD Eosinophils Normal 0 [facility] Comment on above: Performed By: #### F LCRYS #### [facility] [address] [place] [address] Media Analyst: Rocco Salas MD [facility] [address] [place] [address] [place], [place] [phone] Media Analyst: Anusha Lea MD #### FLDCT #### [facility] [address] [place] [address] [place], [place] [phone] Media Analyst: Anusha Lea MD Lymphocytes/100 WBC (Bld) 72 % High 0 [facility] Comment on above: Performed By: #### F LCRYS #### [facility] [address] [place] [address] Media Analyst: Rocco Salas MD [facility] [address] [place] [address] [place] [address] Media Analyst: Anusha Lea MD #### FLDCT #### [facility] [address] [place] [address] [place], [place] [id number] Media Analyst: Anusha Lea MD Colquitt/Macrophage Normal [address] [place] [address] Comment on above: Performed By: #### F LCRYS #### [facility] [address] [place] [address] Media Analyst: Rocco Salas MD [facility] [address] [place] [address] [place], [place] [phone] Media Analyst: Anusha Lea MD #### FLDCT #### [facility] [address] [place] [address] [place] [address] Media Analyst: Anusha Lea MD Neutrophils/100 WBC (Bld) 28 % High 0 [facility] Comment on above: Performed By: #### F LCRYS #### [facility] [address] [place] [address] Media Analyst: Rocco Salas MD [facility] [address] [place] [address] Media Analyst: Anusha Lea MD #### FLDCT #### [facility] [address] [place] [address] Media Analyst: Anusha Lea MD Other Cells Normal [address] [place] [address] Comment on above: Performed By: #### F LCRYS #### [facility] [address] [place] [address] Media Analyst: Rocco Salas MD [facility] [address] [place] [address] [place] [address] Media Analyst: Anusha Lea MD #### FLDCT #### [facility] [address] [place] [address] [place] [address] Media Analyst: Anusha Lea MD Total Cells Counted 50 Normal [facility] Comment on above: Performed By: #### F LCRYS #### [facility] [address] [place] [address] Media Analyst: Rocco Salas MD [facility] [address] [place] [address] [place] [address] Media Analyst: Anusha Lea MD #### FLDCT #### [facility] [address] [place] [address] Media Analyst: Anusha Lea MD Appearance (U) SLIGHTLY CLOUDY [facility] Comment on above: Performed By: #### F LCRYS #### [facility] [address] [place] [address] Media Analyst: Rocco Salas MD [facility] [address] [place] [address] [place] [address] Media Analyst: Anusha Lea MD #### FLDCT #### [facility] [address] [place] [address] [place] [address] Media Analyst: Anusha Lea MD Color (U) Yellow [facility] Comment on above: Performed By: #### F LCRYS #### [address] [address] Media Analyst: Rocco Salas MD [address] [place], [place] [phone] Media Analyst: Anusha Lea MD #### FLDCT #### [address] [place], [place] [id number] Media Analyst: Anusha Lea MD RBC (Bld) [#/Vol] 0.008 10*6/uL Normal [facility] Comment on above: Performed By: #### F LCRYS #### [address] [address] Media Analyst: Rocco Salas MD [address] [place] [address] Media Analyst: Anusha Lea MD #### FLDCT #### [facility] [address] [place] [address] [place] [address] Media Analyst: Anusha Lea MD WBC (Bld) [#/Vol] 0.156 10*3/uL [facility] Comment on above: Performed By: #### F LCRYS #### [facility] [address] [place] [address] Media Analyst: Rocco Salas MD [facility] [address] [place] [address] [place], [place] [phone] Media Analyst: Anusha Lea MD #### FLDCT #### [facility] [address] [place] [address] Media Analyst: Anusha Lea MD Type of Specimen .JOINT FLUID Normal [facility] Comment on above: Performed By: #### F LCRYS #### [facility] [address] [place] [address] Media Analyst: Rocco Salas MD [facility] [address] [place], [place] [phone] Media Analyst: Anusha Lea MD #### FLDCT #### [facility] [address] [place] [address] Media Analyst: Anusha Lea MD 07 Addendum Reporton 024 07 Addendum Report [address] [address]- Surgical Pathology Report Collected Date/Time: 06/01/2024 12:32 [...] examined esophagus. Empiric dilation with Delcid 54 Mal[place]ian was done, no mucosal disruption was noted [...] is entirely submitted in one cassette. (DC) DC:[facility] Microscopic Description Microscopic examination performed unless gross only specified. The use of one or more reagents in the above tests is regulated as an analyte specific reagent (ASR). The test or tests are ordered following initial H&E microscopic examination. The performance characteristics were determined by the [facility] of [facility] They have not been cleared or approved by the [place] Food and Drug Administration. The FDA has determined that such clearance or approval is not necessary. These tests are used for clinical purposes. They should not be regarded as investigational or for research. Appropriate positive and negative controls are performed and are acceptable. Normal [facility] Comment on above: Performed By: #### C D:[id number] #### [facility] [address] [place] [address] Patient Letter FTon 2023 Patient Letter [facility] [place] [facility] [place] 06, 2024 RENUKA GRAHAM [address] [place] [id number] : 1955 Below is a summary of [...] if you wish to make an appointment. [facility] [phone] [facility] Reminderson 06-06-2024 Reminders Reminders From: Lisa Cunningham I To: [facility] - Reminders/Recalls; Sent: 06/06/2024 10:26:14 EDT Show up: 03/19/2034 10:26:00 EDT Subject: Colonoscopy recall Reminder/Recall [address] Bejarano 06/01/2034 [facility] Surgical Pathology Reporton 06-03-2024 Surgical Pathology Report [facility] [place] [address]- Surgical Pathology Report Collected Date/Time: 06/01/2024 12:32 [...] examined esophagus. Empiric dilation with Delcid 54 Maldivian was done, no mucosal disruption was noted [...] is entirely submitted in one cassette. (DC) DC:[facility] Microscopic Description Microscopic examination performed unless gross only specified. The use of one or more reagents in the above tests is regulated as an analyte specific reagent (ASR). The test or tests are ordered following initial H&E microscopic examination. The performance characteristics were determined by the Laboratory of [facility]. They have not been cleared or approved by the US Food and Drug Administration. The FDA has determined that such clearance or approval is not necessary. These tests are used for clinical purposes. They should not be regarded as investigational or for research. Appropriate positive and negative controls are performed and are acceptable. [facility] Comment on above: Performed By: #### [id number] #### [facility] [address] [place] [address] Main OR Intraoperative Recor don 06-02-2024 Main OR Intraoperative Record Main OR Intraoperative Record IntraOp Document Type FT Summary Primary Physician: Glen Bejarano MD Finalized Date/Time: 06/02/24 08:36:22 Pt. Name: RENUKA GRAHAM Shaun SinghB./Sex: 1955 Female Med Rec #: [id number] Physician: Glen Bejarano MD Financial #: [id number] Pt. Type: O Room/Bed: / Admit/Disch: 06/01/24 [...] RN, Margarette Blackwell Role Performed Anesthesiologist of Safety Administrator - Primary Scrub - Primary Record Time In 06/01/24 12:25:00 06/01/24 12:25:00 06/01/24 12:25:00 Time Out 06/01/24 13:09:00 06/01/24 13:09:00 06/01/24 13:09:00 Procedure EGD AND COLONOSCOPY(.) EGD AND COLONOSCOPY(.) EGD AND COLONOSCOPY(.) Comments Last Modified By: Kami REYNA, Vitaliy Mcclure RN, Vitaliy Mcclure RN, Vtialiy Holley 06/01/24 13:16:18 06/01/24 13:16:18 06/01/24 13:16:18 [...] for proce (more content not included)... [facility] Discharge Instructionson Discharge Instructions Discharge Instruc tions [...] sulfate fluticasone nasal (fluticasone 0.05 mg/inh Nasal [place]) gabapentin (gabapentin 300 mg Cap) hydrOXYzine magnesium [...] Follow Up with Darci BRYANT, KLAUS Parsons, [facility] When: Comments: Call for any problems. Office to call for follow up appointment. Where: [address] [place] [address], [address] [phone] Medications What How Much When Instructions Next [...] fluticasone nasal (fluticasone 0.05 mg/ inh Nasal [place]) 2 Sprays Nasal Inhalation Every day Unchanged [...] in the (more content not included)... [facility] Comment on above: Result Comment: Elec tronically Signed By: Oliver REYNA, Sharon Goldman\.juanita\Date and Time Signed: 06/01/24 13:15 EDT Inpatient Patient Summaryon 06-01-2024 Inpatient Patient Summary Inpatient Patient Summary [place] [id number] [facility] Clinical Discharge Instructions PERSON INFORMATION Name: RENUKA GRAHAM PHYSICIANS Admitting Physician: Glen eBjarano MD Attending Physician: Glen Bejarano MD PCP: [...] day. fluticasone nasal (fluticasone 0.05 mg/inh Nasal [place]) 2 Sprays Nasal Inhalation every day. hydrOXYzine [...] ONCE DAILY., Responsible Provider: PETER SOSA Comment: [facility] Main OR PACU I Recordon 05-19 Main OR PACU I Record Main OR PACU I Rec ord PACU Phase I Document Type FT Summary Primary Physician: Glen Bejarano MD Finalized Date/Time: 06/01/24 13:51:48 Pt. Name: RENUKA GRAHAM/Sex: 1955 Female Med Rec #: [id number] Physician: Glen Bejarano MD Financial #: [id number] Pt. Type: O Room/Bed: / Admit/Disch: 06/01/24 [...] Signed By: Sharon Boyd RN 06/01/24 13:51 [facility] Main OR Preoperative Recordo n 06-01-2024 Main OR Preoperative Record Main OR Preoperative Record Holding Area Document Type FT Summary Primary Physician: Glen Bejarano MD Finalized Date/Time: 06/01/24 11:20:31 Pt. Name: RENUKA GRAHAM /Sex: 1955 Female Med Rec #: [id number] Physician: Glen Bejarano MD Financial #: [id number] Pt. Type: O Room/Bed: / Admit/Disch: 06/01/24 [...] By: Vitaliy Mcclure RN 06/01/24 11:20 [facility] Outpatient Surgery Discharge Instructionon 06-01-2024 Outpatient Surgery Discharge Instruction Outpatient Surgery Discharge Instruction [place] [id number] Patient Discharge Instructions PERSON INFORMATION Name: RENUKA [...] Information: You may receive a survey from [employer] asking you to rate your care experience. Your feedback is important and will help us understand what we do well and how we can improve the quality of care we provide to you, your loved ones and our community. It?s an honor to serve you. Thank you for choosing [facility] HERE ARE THE MEDICATION CHANGES THAT [...] day. fluticasone nasal (fluticasone 0.05 mg/inh Nasal [place]) 2 Sprays Nasal Inhalation every day. hydrOXYzine [...] PATIENT EDUCATION INFORMATION Instructions: Medication Leaflets: [facility] Bacteria Spec Anaerobe Culto n 05-25-2024 Bacteria identified Anaer cx Nom (Unsp spec) Culture, Anaerobic Status = F No anaerobes grown after [address] [facility] Comment on above: Performed By: #### 6 35-3 #### [facility] [address] [place] [address] Bacteria Spec BFld Culton Bacteria identified Sterile [...] a previously preliminary verified report. Normal [facility] Comment on above: Performed By: #### 6 36-1 #### [facility] [address] [place] [address] Bacteria identified Anaer cx Nom (Unsp spec)Ordered By: Kaur Pierre on 05-25-2024 Bacteria Spec Anaerobe Cult Culture, Anaerobic Status = F No anaerobes grown after 4 days. [facility] Bacteria identified Sterile body fluid culture Nom (Unsp spec)Ordered By: Kaur Pierre on 05-25-2024 Bacteria Spec BFld Cult Fluid Culture Status = F No growth at 3 days [facility] Bacteria Spec BFld Cult Gram Stain Result Status = F No Polymorphonuclear leukocytes [facility] Bacteria Spec BFld Cult This is an appended report. These results have been appended to a previously preliminary verified report. [facility] Bacteria Spec BFld Cult No Epithelial cells [facility] Bacteria Spec BFld Cult No organisms seen [facility] Cell count panel (Body fld)o n 05-25-2024 Fluid Basophils 1.0 % Normal [facility] Comment on above: Order Comment: The r eference range and other method performance specifications have not been established for this fluid specimen. The test result should be integrated into the clinical context for interpretation. Performed By: #### 3 4556-1 #### [facility] [address] [place] [address] Fluid Eosinophils 11.0 % Normal [facility] Comment on above: Order Comment: The r eference range and other method performance specifications have not been established for this fluid specimen. The test result should be integrated into the clinical context for interpretation. Performed By: #### 3 4556-1 #### [facility] [address] [place] [address] Fluid Lymphocytes 3.0 % Normal [facility] Comment on above: Order Comment: The r eference range and other method performance specifications have not been established for this fluid specimen. The test result should be integrated into the clinical context for interpretation. Performed By: #### 3 4556-1 #### [facility] [address] [place] [address] Fluid Monocytes/Macrophages 9.0 % Normal [facility] Comment on above: Order Comment: The r eference range and other method performance specifications have not been established for this fluid specimen. The test result should be integrated into the clinical context for interpretation. Performed By: #### 3 4556-1 #### [facility] [address] [place] [address] Fluid Neutrophils 76.0 % Normal [facility] Comment on above: Order Comment: The r eference range and other method performance specifications have not been established for this fluid specimen. The test result should be integrated into the clinical context for interpretation. Performed By: #### 3 4556-1 #### [facility] [address] [place] [address] Cell count panel (Body fld)O rdered By: Kaur Pierre on 05-25-2024 Cell Cnt Pnl Fld Knee [facility] Cell Cnt Pnl Fld Cloudy [facility] Cell Cnt Pnl Fld Red [facility] Cell Cnt Pnl Fld 969246 /mm3 [facility] Comment on above: The reference range and other method performance specifications have not been established for this fluid specimen. The test result should be integrated into the clinical context for interpretation. Cell Cnt Pnl Fld 406 /mm3 [facility] Comment on above: The reference range and other method performance specifications have not been established for this fluid specimen. The test result should be integrated into the clinical context for interpretation. Differential panel (Body fld )Ordered By: Kaur Pierre on 05-25-2024 Diff Pnl Fld 76.0 % [facility] Diff Pnl Fld 3.0 % [facility] Diff Pnl Fld 9.0 % [facility] Diff Pnl Fld 11.0 % [facility] Diff Pnl Fld 1.0 % [facility] Fungus Skin Culton Fungus identified Cx Nom (Skin) Culture, Fungus Status = F No growth at [address] [facility] Comment on above: Performed By: #### 5 75-1 #### [facility] [address] [address] Fungus identified Cx Nom (Sk in)Ordered By: Kaur Pierre on 05-25-2024 Fungus Skin Cult Culture, Fungus Stat us = F No growth at 4 weeks [facility] Mycobacterium Spec Ql Culton 05-25-2024 Mycobacterium sp Org specific cx Ql (Unsp spec) Culture AFB Status = F No growth at 8 weeks AFB Stain Status = F No acid fast bacilli seen Normal [facility] Comment on above: Performed By: #### 5 0941-4 #### [facility] [address] [place] [address] Ambulatory Visit Summaryon 0 03-28-2024 Ambulatory Visit [...] sulfate fluticasone nasal (fluticasone 0.05 mg/inh Nasal [place]) gabapentin (gabapentin 300 mg Cap) hydrOXYzine midodrine [...] fluticasone nasal (fluticasone 0.05 mg/ inh Nasal [place]) 2 Sprays Nasal Inhalation Every day Contact [...] Unchanged topiram (more content not included)... [facility] Ambulatory Visit Summary RENUKA GRAHAM :1955 Visit [...] sulfate fluticasone nasal (fluticasone 0.05 mg/inh Nasal [place]) gabapentin (gabapentin 300 mg Cap) hydrOXYzine midodrine [...] fluticasone nasal (fluticasone 0.05 mg/ inh Nasal [place]) 2 Sprays Nasal Inhalation Every day Contact [...] Unchanged topiram (more content not included)... [facility] Consent for Procedure/Surger yon 03-28-2024 Consent for Procedure/Surgery [id number] [facility] Gastroenterology Office/Clin ic Noteon 03-28-2024 Gastroenterology Office/Clinic [...] E&M of New Patient High 60-74 Min 33563 E&M of New Patient Moderate 45-59 Min 75615 EGD Endoscopy (Hospital Procedure) EGD Endoscopy (Hospital Procedure) 2. Dysphagia (R13.10: Dysphagia, unspecified) to solids, has to use water, occasionally (worst sandwich, meat..) no previous dilation EGD with dilation if fails--> manometry Ordered: Colonoscopy (Hospital Procedure) Colonoscopy (Hospital Procedure) E&M of New Patient High 60-74 Min 61658 E&M of New Patient Moderate 45-59 Min 40174 EGD Endoscopy (Hospital Procedure) EGD Endoscopy (Hospital Procedure) 3. History of gastric bypass (Z98.84: Bariatric surgery status) 1983 Ordered: Colonoscopy (Hospital Procedure) E&M of New Patient High 60-74 Min 37844 E&M of New Patient Moderate 45-59 Min 47285 EGD Endoscopy (Hospital Procedure) 4. Obesity (E66.9: Obesity, unspecified) Ordered: Colonoscopy (Hospital Procedure) E&M of New Patient High 60-74 Min 04567 E&M of New Patient Moderate 45-59 Min 16057 EGD Endoscopy (Hospital Procedure) 5. CHF (congestive heart failure) (I50.9: Heart failure, unspecified) Ordered: Colonoscopy (Hospital Procedure) E&M of New Patient High 60-74 Min 07050 E&M of New Patient Moderate 45-59 Min 62506 EGD Endoscopy (Hospital Procedure) 6. COPD type [...] tab, Oral, Daily fluticasone 0.05 mg/inh Nasal [place], 2 spray(s), Nasal, Daily gabapentin 300 mg [...] adopted Fami (more content not included)... [facility] Comment on above: Result Comment: Elec tronically Signed By: Darci BRYANT, Glen Ta\.juanita\Date and Time Signed: 03/28/24 10:48 EDT ECG 12 leadon 03-25-2023 P Wave [place] 46 degrees [facility] P-R Interval 168 ms [facility] th Pathologist interpretation (Bld) [Interp] Normal sinus rhythm Left bundle branch block Abnormal ECG Confirmed by Evelyn Jose MD ([id number]) on 03/25/2023 1:21:08 PM [facility] Q-T Interval 404 ms [facility] QRS Duration 128 ms [facility] QTc 448 ms [facility] R [place] -19 degrees [facility] Troponin T.cardiac [Mass/Vol] 83 ug/L degrees [facility] - Coagulationon 0 03-25-2023 ACT Coag (Bld) 74 s BPM [facility] SARS-CoV-2 (COVID-19) RNA NA A+probe Ql (Resp)on 03-25-2023 Interpretation and review of laboratory results Normal [facility] SARS-CoV-2 (COVID-19) RdRp gene TORRES+probe Ql (Resp) Not detected Not Detected [facility] Bacteria identified Anaer cx Nom (Unsp spec)Ordered By: Deep Sagastume on 03-23-2023 [facility] Bacteria identified Anaer cx Nom (Unsp spec)on 03-23-2023 [facility] Culture anaerobicOrdered By: Deep Sagastume on 03-23-2023 Bacteria identified Anaer cx Nom (Unsp spec) No anaerobes grown after 4 days. [facility] - Microbiology an d Antimicrobial susceptibilityon 03-23-2023 Bacteria identified Anaer cx Nom (Unsp spec) No anaerobes grown after 4 days. [facility] Bacteria identified Cx Nom ( Tiss)on 03-22-2023 Microscopic observation Gram stain Nom (Unsp spec) No Polymorphonuclear leukocytes [facility] Comment on above: This is an appended report. These results have been appended to a previously preliminary verified report. Microscopic observation Gram stain Nom (Unsp spec) No Epithelial cells [facility] Comment on above: This is [...] Nom (Body fld) Rare Pasteurella multocida Abnormal [facility] Comment on above: Appropriate antibiot ic [...] Cx Nom (Tiss) Rare Pasteurella multocida Abnormal [facility] Comment on above: Appropriate antibiot ic therapy [...] stain Nom (Unsp spec) No Epithelial cells [facility] Comment on above: This is an appended report. These results have been appended to a previously preliminary verified report. Microscopic observation Gram stain Nom (Unsp spec) No organisms seen [facility] Comment on above: This is an appended report. These results have been appended to a previously preliminary verified report. No Panel InformationOrdered By: Aggie Aiken on 03-22-2023 Interpretation and review of laboratory results Abnormal [facility] Basic metabolic 2000 panelon 03-21-2023 Anion gap [Moles/Vol] 8 mmol/L 6 - 18 Tri [facility] Calcium [Mass/Vol] 9.1 mg/dL 8.9 - 10. 3 mg/dL [facility] Chloride [Moles/Vol] 104 mmol/L 98 - 10 7 mmol/L [facility] CO2 [Moles/Vol] 25 mmol/L 22 - 32 mmol/L [facility] Creatinine [Mass/Vol] 0.92 mg/dL 0.60 - 1.30 mg/dL [facility] GFR/1.73 sq M.predicted among non-blacks MDRD (S/P/Bld) [Vol rate/Area] 68 mL/min/{1.73_m2} - PINF [facility] Comment on above: Effective July 27, 2022, calculation based on the Chronic Kidney Disease Epidemiology Collaboration (CKD-EPI) equation refit without adjustment for race. Glucose [Mass/Vol] 95 mg/dL 70 - 99 mg/dL [facility] Interpretation and review of laboratory results Abnormal [facility] Potassium [Moles/Vol] 4.6 mmol/L 3.6 - 5.1 mmol/L [facility] Sodium [Moles/Vol] 137 mmol/L 136 - 145 mmol/L [facility] Urea nitrogen [Mass/Vol] 22 mg/dL High 8 - 20 mg/dL [facility] Urea nitrogen/Creatinine [Mass ratio] 23.9 mg/mg High 12.0 - 20.0 [facility] Glucose Auto test strip (Bld ) [Mass/Vol]on 03-21-2023 Glucose [Mass/Vol] 112 mg/dL High 70 - 99 mg/dL [facility] Interpretation and review of laboratory results Abnormal [facility] Glucose [Mass/Vol] 124 mg/dL High 70 - 99 mg/dL [facility] Interpretation and review of laboratory results Abnormal [facility] Glucose [Mass/Vol] 85 mg/dL 70 - 99 mg/dL [facility] Interpretation and review of laboratory results Normal [facility] Hemogram and platelets WO di fferential panel (Bld)on 03-21-2023 Basophils (Bld) [#/Vol] 0.04 10*3/uL [facility] Basophils/100 WBC (Bld) 0.4 % 0.0 - 2.0 % [facility] Eosinophils (Bld) [#/Vol] 0.08 10*3/uL [facility] Eosinophils/100 WBC (Bld) 0.7 % 0.0 - 7.0 % [facility] Erythrocyte distribution width (RBC) [Ratio] 13.6 % 11.0 - 14.8 % [facility] Hematocrit (Bld) [Volume fraction] 36.0 % 34.3 - 47.9 % [facility] Hemoglobin (Bld) [Mass/Vol] 11.6 g/dL Low 12.0 - 16.0 g/dL [facility] Immature granulocytes (Bld) [#/Vol] 0.07 10*3/uL [facility] Immature granulocytes/100 WBC (Bld) 0.7 % 0.0 - 1.2 % [facility] Interpretation and review of laboratory results Abnormal [facility] Lymphocytes (Bld) [#/Vol] 1.70 10*3/uL [facility] Lymphocytes/100 WBC (Bld) 15.8 % Low 17.9 - 49.6 % [facility] MCH (RBC) [Entitic mass] 28.4 pg [facility] MCHC (RBC) [Mass/Vol] 32.2 g/dL 30.8 - 35.3 g/dL [facility] MCV (RBC) [Entitic vol] 88.0 fL [facility] Monocytes (Bld) [#/Vol] 1.02 10*3/uL [facility] Monocytes/100 WBC (Bld) 9.5 % 0.0 - 12.0 % [facility] Neutrophils (Bld) [#/Vol] 7.84 10*3/uL [facility] Neutrophils/100 WBC (Bld) 72.9 % 38.1 - 75.5 % [facility] Platelet mean volume (Bld) [Entitic vol] 10.4 fL [facility] Platelets (Bld) [#/Vol] 300 10*3/uL [facility] RBC (Bld) [#/Vol] 4.09 10*6/uL [facility] WBC (Bld) [#/Vol] 10.8 10*3/uL [facility] Basic metabolic 2000 panelon 03-20-2023 Anion gap [Moles/Vol] 11 mmol/L 6 - 18 [facility] Calcium [Mass/Vol] 9.0 mg/dL 8.9 - 10. 3 mg/dL [facility] Chloride [Moles/Vol] 104 mmol/L 98 - 10 7 mmol/L [facility] CO2 [Moles/Vol] 23 mmol/L 22 - 32 mmol/L [facility] Creatinine [Mass/Vol] 1.03 mg/dL 0.60 - 1.30 mg/dL [facility] GFR/1.73 sq M.predicted among non-blacks MDRD (S/P/Bld) [Vol rate/Area] 60 mL/min/{1.73_m2} - [facility] Comment on above: Effective July 27, 2022, calculation based on the Chronic Kidney Disease Epidemiology Collaboration (CKD-EPI) equation refit without adjustment for race. Glucose [Mass/Vol] 106 mg/dL High 70 - 99 mg/dL [facility] Interpretation and review of laboratory results Abnormal [facility] Potassium [Moles/Vol] 4.9 mmol/L 3.6 - 5.1 mmol/L [facility] Sodium [Moles/Vol] 138 mmol/L 136 - 145 mmol/L [facility] Urea nitrogen [Mass/Vol] 31 mg/dL High 8 - 20 mg/dL [facility] Urea nitrogen/Creatinine [Mass ratio] 30.1 mg/mg High 12.0 - 20.0 [facility] Glucose Auto test strip (Bld ) [Mass/Vol]on 03-20-2023 Glucose [Mass/Vol] 109 mg/dL High 70 - 99 mg/dL [facility] Interpretation and review of laboratory results Abnormal [facility] Glucose [Mass/Vol] 89 mg/dL 70 - 99 mg/dL [facility] Interpretation and review of laboratory results Normal [facility] Glucose [Mass/Vol] 106 mg/dL High 70 - 99 mg/dL [facility] Interpretation and review of laboratory results Abnormal [facility] Glucose [Mass/Vol] 116 mg/dL High 70 - 99 mg/dL [facility] Interpretation and review of laboratory results Abnormal [facility] Hemogram and platelets WO di fferential panel (Bld)on 03-20-2023 Basophils (Bld) [#/Vol] 0.02 10*3/uL [facility] Basophils/100 WBC (Bld) 0.2 % 0.0 - 2.0 % [facility] Eosinophils (Bld) [#/Vol] 0.00 10*3/uL [facility] Eosinophils/100 WBC (Bld) 0.0 % 0.0 - 7.0 % [facility] Erythrocyte distribution width (RBC) [Ratio] 13.9 % 11.0 - 14.8 % [facility] Hematocrit (Bld) [Volume fraction] 38.9 % 34.3 - 47.9 % [facility] Hemoglobin (Bld) [Mass/Vol] 12.2 g/dL 12.0 - 16.0 g/dL [facility] Immature granulocytes (Bld) [#/Vol] 0.08 10*3/uL [facility] Immature granulocytes/100 WBC (Bld) 0.7 % 0.0 - 1.2 % [facility] Interpretation and review of laboratory results Abnormal [facility] Lymphocytes (Bld) [#/Vol] 1.07 10*3/uL [facility] [...] mean volume (Bld) [Entitic vol] 11.2 fL [facility] Platelets (Bld) [#/Vol] 270 10*3/uL [facility] RBC (Bld) [#/Vol] 4.33 10*6/uL [facility] WBC (Bld) [#/Vol] 11.5 10*3/uL [place] & [facility] Pathology studyOrdered By: Eli Dietrich on 03-20-2023 Citation Jeff (Reference lab test) [id number] ZzEwMzNcZnRuYmpcdWMxIHtc hxMrZQfom0HqA8XgTpByZRld bnNpXGRlZmxhbmcxMDMzXGZ0 rlMoKKVyWLoqTOZgOUrgQx7l jMYacOfnUuJcZOSsn4brscZJ BJodCMPFEXf9n0zzIPMvMeL8 fKAtNZyxI7nrvtXzjWEgW8Ym h5SpGVv6gK39FQZiyA2wpDFd NKwwybUqCaX5NIzhAZMcKjZ1 ZMTyuHGwQCGwZ0ilXVTpISnm vqTifcE1IGScaTFhBFB6UHHx GBFqF1BkBW6zOZXagCXyTZq8 r3rfbTxbGHUkXAK8b6ekVXar nrUrDQ1ajb0jyVv8o4lhejUd CVCrHCSueWSZLSIdM0MtpYhg Hk0eaHz1lGioUhalWWU2Fsj3 HD1uak70lgd0pPqbGEPjyvgk EkX2NUumQQJmdfyiYOl1LOjz ADGoiXG2UQBclVEqI1NuDJLm HC8rmva2DLU9YSpiHYKvUzD8 CSHduZDoHGXmsAfcSVhxy880 ZDP1KxOaHN6iL8Uih4X5pB7t tEXeROIsrOYyGwEnRPKhmc7l xDMxJVgga8WfBNK3onG2tSMj tLTcSMIkPU58Ewwds1GzMrqj LRO5XINtaxIuv2Qsb9rtHiCl tqOmK9hrI7MmJYBoIKGsKKDw TuVqqkRyn6Fji3GiaBRydNg7 g2bcPFNjUVCkxSixs5xbACI4 XTTtS4L5mYRhg4ydPDwuMRVy pWB1duG4JCVabOJvY5HcyQ4k GDDwHU0ynuu0z8vmISA0WWkp JNUjOyW3bbN1NRYxdGLgFKNx iYjqMJflm865BDP2ErKwWBZz j7KvI3AvhBehI40cuPogR62q KOZerHuhyX5kvXrolE0gRfKg ZnMyNFxxbFxwbGFpblxmMVxm rlB0SLtobsfdRULnDFnyA9my YpUmVLSpdZneGXxbn5SzSLVa ZQFgKdgriiC7SSgkTQ00DZci gQRxj1akm3VfC8rpaHxkdGM6 NT4vAAKkEOYuXIfng9NjxK3i xLAkBEVbzeD9yGNpuQ65HVAv yhN0GLEig18jj8UvdBbbptNu XYUwWNtwkzXfWMUdz9VkESSo EFHfEK37ycPtI1CrxZRqNLRu yfUfUNckqA3mx9m7TXcaOr2e RDzjh3NgpHSwfHMtzBV5IUBt u2CaCiVsjgYblUDbheJzXB4n RBUirYHqbcAnHAF9VYAkJPHT InZmOBFht1LaOV5dNDNwfZyo SUIfyO3fs8HjOUWdu47mONHl ZSBGREEgaGFzIGRldGVybWlu ZWQgdGhhdCBzdWNoIGNsZWFy YJ6rOWRodtIrvEInx0MnjGAp pfRhr2DiucRkHONjNET2MmGN wHDqHZP9SDG6ipQihdYajJQe VATlk7KhG3etortnSYrabCHr sE6vDSIuEI7qKQEdx5OdOWYi v2NnPrSkxtIeGXBnFYDxSTSi hQ07JOA2yOvwoFrqspMlBC8r OQNtvxCqZZNvJCCheI5aUBll kmUkHHDcvgG9a1M7DIntMCAe bvOlEpekDQK7fxAgULCeu6Lq PXoyR2unW32klBlhcUq2hUB9 XHJ1aE2aIISxQLIuCAMlWXNC qCusqQUhlLISZYRqxeP4v4P1 XDrgnZUdnkVfMH48DLNlDO9d uBEltVFyo5JcSIz3EY4gCXyt CJPmzkRjt6axGYQiv8fsXKDo dp6wjmoekIUgmbViN8Ylwez2 pD7lwXLxUQFfbs35IVL8HfJe DC7ryXocDIFcXC4bXEEyL2by wQ9vert4AmBcw6gyrFXoVFBi fITrZwDeGTKcPKDyv5yqXDAn bGFuZzEwMzNcZnRuYmpcdWMx PMLjTuCjh2ocl103sYZjv7mn NEBgSqV8aNApNDScT84dPDCR B747WJUsLVwxn5mny6RkTAAn mWOzi3H4TNABOVxtYLBIWIw3 qZllM53ib7R0FeswX9mjMVVe SMGpH4XbGB0jTIVfGdz1QSL9 BYU5DMPnLMF7QNgnOBIlSXOk Kgh6ZEB1BAtjusFkRQWcYUyg AENbKPSaIYWwdXClBTJsJ7fi ZWQwXGdyZWVuMFxibHVlMCA7 jAdtv2X8jBFfjIXhkFsjAlCq QbGcOoMHi6OrLOw5aPlcT8Qo MLFsDfZ0gQBuILOxQEqdHWNk EQRetnM7xJ87BJgoavF1uGJp n0Pdy10rz625qH4rbWFfMBT8 DRXsBACebROfXZCwDPP0WBBn pKVrB3azDXTzJG5bbhpzLXdk IRmiRJLlnGT0XRIxlVFxB4Pe GBQkBEmkBHGidga4JrZkAl0w kBCtqMlyIFray1znn6uvaMWy Cul9EZNjUcAxKrifAXjfw1Hy m7xsHLPwuz9dLQW7eZYyqQyw m2X7oDWbLTTlrPMehrEfVIBc QwW1YZmhVD1ows48PVXeSXW7 tx4vpJBqkWfsuqTziJMuUGtd R7PqZCXst761RLAsE0LhKWHs o5J6piAdRrFyMWPdbFS6shN5 VZFsWUc7bGBjaaY6uvPfwHWp X9qhwG7wAOJhOH8gnyhxr0jy EEwkJBjnQFJzoUP7bjX3CMFt qUVoY3WfjU7rJUGjMDckMHUk mfs4NiAbAz3fuDNjsWywJAuh YmtwYWdlXHBnbmNvbnRccGdu ZGVjXHBsYWluXHBsYWluXGYw QYCvDmAkoUwkyNyebW6yOjXl YwPyCPimGG6gGOBgV2xttZHz FKFxKGSlP0hiEtNloY1rjQel MVxjZjJcZnMxOFxpIFRoZSB0 MMVvwmduQSqjW27svA5bBM76 LZxkeuMaWBFyz4MwJDUiMURl AKteOKHzrvSsQQuetW2dv8x7 EOfjAe0bEFApkjclHKT1FbIm MY36IgfmcAJuLPSBxeKhECTm bHVtYnVzLCBPaGlvIDQzMjI5 AcWDgVVzz1Jjc2WwEnZmdXAr cE0yaRnjrhL2TESzlBSrJr5a bWVkLlxwbGFpblxmMVxmczE4 YDakmwhyYMSoXLehK1ecGtGt DJFecXbyZNxts3CaMOKuSVGa U2nbakG0PXqfsXSyDSVuwc99 fQ== [facility] Work Phone: Microscopic description Jeff (Endomy[employer]ium) a8jwiEQcQYSjtMJEWTJaBDLv RM1giOybkGa7hSotWJHpwmC9 uMLfLPklj9akTQP3w5yspbNJ DysiJKVmOX8mLPgnNBUgVY3o ZmUwXGRlZmYyXHBhcGVydzEy LfLhYQHcoLDxvVC9AFKiIU8i twyyPFapKPfcUDRlpzD7FASz fJDeS8RnFZDeTF7jslvhGHN7 WWBZPyoaBl9msQVpnIJVHbnv ZjFcZmNoYXJzZXQwXGZuaWwg TQCaEUy7nS1Na2xzWdwnY6ew gtAblMSeAu5qhUSYDSocCEDM AIg7dC1OHHVqN4RwOH2Bb3hp XWVvuQCsDZK5LRswr7zuRXdv FDP8TEPtJQDzZUCtTH6ISxWc PYOkQRGjVKpmZqC6PGk0HBQY AFGwTDS3MgYnZpV8FPk3ALVy ZH8lBCctiEEuFMyqFdfsOTxa S467JVbpKTPaN5HoN2MuCBzl ZyBcXGlkIDUxMDAyIFxcZGIg E7EQSUXaZjTjTzK6AXLmSIt6 FWh8QW0CHzYgVDWgNtI8PfB4 EBSwCTu9ASafTM1TKWVjYFQ0 AaotLHPhKMK2HTFsMAt0HJHf CDzkorDzOQzoEwuyDCjyM61k cGFyZCANClxwbGFpblxmMVxm czIwIEEuIEtuZWUsIExlZnQs PSrfXYMfDPngwSLoFZ4WWTWk mrWlKWnjaYrxiM5sCyRhNiOl MFxwbGFpblxsdHJjaFxmczIy KCWqhPVGSOH2UJ3wSXAWBvan qPWvFFVwwMchFQuulM6gOPTz TpMvRBBaD7uqMFHmHC4BBCVv IDRzKySyQwLnSNy1PPOauD6m Dz9xkHLxqN5qwTExHQdwUVY9 kJEoYNJqZBEzBIJtIG21N4Qu kqPaUJdcYW1iDBOcYSa0qY3w YWxseSBsYWJlbGVkICJsZWZ0 XAdtPIKtWXokNOFwwX1btOfc zsLgRnPftqLmI0CeMLZllOTi FJifwFhlzeJ5zdL0ZN4pF9Pu aZPxtYBqg83vbKZzEU8mnQAw oWnmg2RoOJwoqXfscKQdPTXy aWduYXRlZCBvcmllbnRhdGlv biAyLjcgeCAxLjUgeCAwLjUg Q11mPJXPQME7kB3mnI7hNYNh izXcfGZaBIE5XH4jfKMliP78 PVNqRNMaxs8uwcW3JJYwpQYc j1XfEFJ8uDUbeRTcIOJlGYtr hHfbtr6wg7T4xY64nmRguBDx aFVja2MfDZOvYQTzFFawWG17 aWZpZWQuICBSZXByZXNlbnRh eJr1RMNdAEX0yM8dnuHtqwEx t4CwjBa7lUXqPMqbLASlj4gh Q6uoDRRgl5ZuvPMwImGfMEjD UCkNClxlcGljTmVzdERvYzB7 TQUoyXMyBQE0ZO7kuNruXPUz W6TnP2GsfsK2EELbluSPPmfo SNHnTL9PVFReYGNxIhEgUSc9 [facility] Work Phone: Pathology report final diagnosis Narrative z9dlvVQcYBXpfOXyWSClZcvi vsIrBAYafQNjS3EwtxwtLNar GT9hMQ1jnYvxdPPpsCNyFJUe LdDlg7sgi356tSSta2voWKQS mqclrQc7tUqpP32ep4Y7Nktv T7kuAAQhIFqcXEQdCRukaTNb VXc7VBDtlPUjvrGmTuXkKFKh vRHzmPK1RLAdMY5xrejsUKmh SIaaWDMpvnV7UEGqnRZbP2Wv OINnFQ4pdelqKCD4LBmrLDXz QEC3HaImVOFfr9Tyngt4MxDk aTd5r2caLMJgIXIwkPyoh9gy BYI6JGQugNXcN2nwwM5pYOIp CB1dejfjr5nqWUzfXSyjWYYe oSP1gkO2OSDgrSJeY2DwxI9q IYFrALCvqnUucGhnhQ0dL9Ru BHTBBFB3VYzpTRTrIKLtz8Bl bXldtSVpIXK8ng31vASwJIvi mNytzUJyp6UdXMQcjTSsMJey RggzzS8slQiyuz3LPP6aXUwp PSK8GETadBqzqqM7AVClifKt oBcgBPBjv4ZvJBQmWVqkJgek MCUfNa1qjVSlgSMcr6B6qZDh ZSz7rMDkn4D5kUljPDbeMgdp jE9ubXffhaDixzXmihEcRJ22 Ll[employer]XJ[employer] Phone: [employer] Phone: XR Knee 1-2 Views Lefton Status post left tot al knee arthroplasty. -------- FINAL REPORT -------- Dictated By: Ania Dumont Dictated Date: 03/20/2023 07:17 Assigned Physician: Ania Dumont Reviewed and Electronically Signed By: Ania Dumont Signed Date: 03/20/2023 07:18 Workstation ID: [id number] Transcribed By: Self Edit Transcribed Date: 03/20/2023 07:17 [employer]E EXAM: XR KNEE 1-2 EWS LEFT HISTORY: [...] By: Self Edit Transcribed Date: 03/20/2023 07:17 [employer] XR Knee 1-2 Views LeftOrdere d By: Ania Dumont on 03-20-2023 [employer] Work Phone: Basic metabolic 2000 panelon 03-19-2023 Anion gap [Moles/Vol] 9 mmol/L 6 - 18 [facility] Calcium [Mass/Vol] 10.2 mg/dL 8.9 - 10. 3 mg/dL [facility] Chloride [Moles/Vol] 104 mmol/L 98 - 10 7 mmol/L [facility] CO2 [Moles/Vol] 27 mmol/L 22 - 32 mmol/L [facility] Creatinine [Mass/Vol] 1.10 mg/dL 0.60 - 1.30 mg/dL [employer] GFR/1.73 sq M.predicted among non-blacks MDRD (S/P/Bld) [Vol rate/Area] 55 mL/min/{1.73_m2} Low - PINF [facility] Comment on above: Effective July 27, 2022, calculation based on the Chronic Kidney Disease Epidemiology Collaboration (CKD-EPI) equation refit without adjustment for race. Glucose [Mass/Vol] 97 mg/dL 70 - 99 mg/dL [employer] Interpretation and review of laboratory results Abnormal [employer] Potassium [Moles/Vol] 4.4 mmol/L 3.6 - 5.1 mmol/L [facility] Sodium [Moles/Vol] 140 mmol/L 136 - 145 mmol/L [facility] Urea nitrogen [Mass/Vol] 36 mg/dL High 8 - 20 mg/dL [facility] Urea nitrogen/Creatinine [Mass ratio] 32.7 mg/mg High 12.0 - 20.0 [facility] Cell count panel (Body fld)O rdered By: Deidra Stallings on 03-19-2023 Clarity (Body fld) [facility]y [facility] Color (Body fld) Troup [employer] RBC Auto (Body fld) [#/Vol] 05035 /mm3 [facility] Comment on above: The reference range and other method performance specifications have not been established for this fluid specimen. The test result should be integrated into the clinical context for interpretation. Specimen source Nom (Body fld) Knee [employer] WBC (Body fld) [#/Vol] 92171 /mm3 [employer] Comment on above: The reference range and other method performance specifications have not been established for this fluid specimen. The test result should be integrated into the clinical context for interpretation. Called to [facility] 1422 03/19/23 [facility] [employer] Differential panel (Body fld )on 03-19-2023 Lymphocytes/100 WBC Manual cnt (Body fld) [employer] [facility] Monocytes+Macrophages/ 100 WBC (Body fld) 4.0 % [employer] [facility] Neutrophils/100 WBC (Body fld) 96.0 % [employer] Glucose Auto test strip (Bld ) [Mass/Vol]on 03-19-2023 Glucose [Mass/Vol] 131 mg/dL High 70 - 99 mg/dL [employer] Interpretation and review of laboratory results Abnormal [employer] Glucose [Mass/Vol] 124 mg/dL High 70 - 99 mg/dL [employer] Interpretation and review of laboratory results Abnormal [employer] HbA1c HPLC (Bld) [Mass fract ion]on 03-19-2023 Glucose [Mass/Vol] 117 mg/dL [facility] HbA1c (Bld) [Mass fraction] 5.7 % High NINF - 5.6 % [employer] Interpretation and review of laboratory results Abnormal [employer] HbA1c values of 5.7- 6.4 percent indicate an increased risk for developing diabetes mellitus. HbA1c values greater than or equal to 6.5 percent are diagnostic of diabetes mellitus. For diagnosis of diabetes in individuals without unequivocal hyperglycemia, results should be confirmed by repeat testing. [employer] Hemogram and platelets WO di fferential panel (Bld)on 03-19-2023 Basophils (Bld) [#/Vol] 0.05 10*3/uL [employer] Basophils/100 WBC (Bld) 0.4 % 0.0 - 2.0 % [employer] Eosinophils (Bld) [#/Vol] 0.07 10*3/uL [employer] Eosinophils/100 WBC (Bld) 0.6 % 0.0 - [...] mean volume (Bld) [Entitic vol] 9.6 fL [facility] Platelets (Bld) [#/Vol] 268 10*3/uL [facility] RBC (Bld) [#/Vol] 4.63 10*6/uL [facility] WBC (Bld) [#/Vol] 12.4 10*3/uL High [facility] XR Knee 1-2 Views Lefton Radiology Study observation (narrative) [facility] CBC AUTO DIFFon 03-15-2023 BASO # 0.0 103/ul Normal 0.0-0.1 [facility] Comment on above: Performed By: #### C BC #### [facility] [address] [place] [address] Dr. Kyree Neal Basophils/100 WBC (Bld) 0.3 % Normal 0.2-2.0 [facility] Comment on above: Performed By: #### C BC #### [facility] [address] [place] [address] Dr. Kyree Neal EO # 0.0 103/ul Normal 0.0-0.7 [facility] Comment on above: Performed By: #### C BC #### [facility] [address] [place] [address] Dr. Kyree Neal Eosinophils/100 WBC (Bld) 0.1 % Critically low 0.9-7.0 [facility] Comment on above: Performed By: #### C BC #### [facility] [address] [place] [address] Dr. Kyree Neal Erythrocyte distribution width (RBC) [Ratio] 14.0 % Normal 11.0-15.0 [facility] Comment on above: Performed By: #### C BC #### [facility] [address] [place] [address] Dr. Kyree Neal Hematocrit (Bld) [Volume fraction] 38.5 % Normal 36.0-48.0 [facility] Comment on above: Performed By: #### C BC #### [facility] [address] [place] [address] Dr. Kyree Neal Hemoglobin (Bld) [Mass/Vol] 12.4 g/dL Normal 12.0-16.0 [facility] Comment on above: Performed By: #### C BC #### [facility] [address] [place] [address] Dr. Kyree Neal IG # 0.06 10e3/ul Critically high 0.00-0.03 [facility] Comment on above: Performed By: #### C BC #### [facility] [address] [place] [address] Dr. Kyree Neal IG % 0.4 % Normal 0.0-0.5 [facility] Comment on above: Performed By: #### C BC #### [facility] [address] [address] [address] Kyree Neal LYMPH # 0.9 103/ul Critically low 1.2-3.8 [facility] Comment on above: Performed By: #### C BC #### [facility] [address] [place] [address] Dr. Kyree Neal Lymphocytes/100 WBC (Bld) 6.6 % Critically low 20.5-60.0 [facility] Comment on above: Performed By: #### C BC #### [facility] [address] [place] [address] Dr. Kyree Neal MANUAL DIFF REQ NO Normal [facility] Comment on above: Performed By: #### C BC #### [facility] [address] [place] [address] Dr. Kyree Neal MCH (RBC) [Entitic mass] 28.1 pg Normal 26.7-34.0 [facility] Comment on above: Performed By: #### C BC #### [facility] [address] [place] [address] Dr. Kyree Neal MCHC (RBC) [Mass/Vol] 32.2 g/dL Normal 29.9-35.2 [facility] Comment on above: Performed By: #### C BC #### [facility] [address] [place] [address] Dr. Kyree Neal MCV (RBC) [Entitic vol] 87.1 fL Normal 81.0-99.0 [facility] Comment on above: Performed By: #### C BC #### [facility] [address] [place] [address] Dr. Kyree Neal MONO # 1.2 103/ul Critically high 0.3-0.8 [facility] Comment on above: Performed By: #### C BC #### [facility] [address] [place] [address] Dr. Kyree Neal Monocytes/100 WBC (Bld) 8.6 % Normal 1.7-12.0 [facility] Comment on above: Performed By: #### C BC #### [facility] [address] [place] [address] Dr. Kyree Neal NEUT # 11.5 103/ul Critically high 1.4-6.5 [facility] Comment on above: Performed By: #### C BC #### [facility] [address] [address] [address] Kyree Neal Neutrophils/100 WBC (Bld) 84.0 % Critically high 43.0-75.0 [facility] Comment on above: Performed By: #### C BC #### [facility] [address] [place] [address] Dr. Kyree Neal Platelet mean volume (Bld) [Entitic vol] 10.0 fL Normal 9.5-13.5 [facility] Comment on above: Performed By: #### C BC #### [facility] [address] [place] [address] Dr. Kyree Neal PLT 250 103/ul Normal 150-450 [facility] Comment on above: Performed By: #### C BC #### [facility] [address] [place] [address] Dr. Kyree Neal RBC 4.42 106/ul Normal 4.20-5.40 [facility] Comment on above: Performed By: #### C BC #### [facility] [address] [place] [address] Dr. Kyree Neal WBC 13.7 103/ul Critically high 4.0-11.0 [facility] Comment on above: Performed By: #### C BC #### [facility] [address] [place] [address] Dr. Kyree Neal CRPon 03-15-2023 CRP 13.8 mg/dL Critically high <=1.0 [facility] Comment on above: Performed By: #### H H #### [facility] [address] [place] [address] Dr. Kyree Neal CULTURE BLOODon 03-15-2023 Microscopic examination of blood, culture Culture Observations: NO GROWTH AT 36-48 HOURS. FINAL TO FOLLOW. Normal [facility] Comment on above: Performed By: #### B LDCX2 ####[facility] [address] [place], [place] [address]OvDr. Kyree Neal Microscopic examination of blood, culture Culture Observations: NO GROWTH AT 36-48 HOURS. FINAL TO FOLLOW. Normal [facility] Comment on above: Performed By: #### B LDCX1 ####[facility] [address] [place], [place] [address]AtDr. Kyree Neal LACTATE/LACTIC ACIDon 2022 Lactate [Moles/Vol] 1.2 mmol/L Normal 0.4-2.0 [facility] Comment on above: Performed By: #### H H #### [facility] [address] [address] [address] Kyree Neal PROF CHEM 8 (BAS METB)on Anion gap [Moles/Vol] 11.6 mmol/L Normal [facility] Comment on above: Performed By: #### H H #### [facility] [address] [address] [address] Kyree Neal Calcium [Mass/Vol] 9.0 mg/dL Normal 8.5-10.1 [facility] Comment on above: Performed By: #### H H #### [facility] [address] [address] [address] Kyree Neal Chloride [Moles/Vol] 102 mmol/L Normal 98-107 [facility] Comment on above: Performed By: #### H H #### [facility] [address] [address] [address] Kyree Neal CO2 [Moles/Vol] 28.0 mmol/L Normal 21.0-32.0 [facility] Comment on above: Performed By: #### H H #### [facility] [address] [address] [address] Kyree Neal Creatinine [Mass/Vol] 1.34 mg/dL Critically high 0.55-1.02 [facility] Comment on above: Performed By: #### H H #### [facility] [address] [address] [address] Kyree Neal EGFR-AF CYMRO 48 mL/min/1.73m2 Critically low >=60 [facility] Comment on above: Performed By: #### H H #### [facility] [address] [address] [address] Kyree Neal EGFR-NON AF CYMRO 39 mL/min/1.73m2 Critically low >=60 [facility] Comment on above: Performed By: #### H H #### [facility] [address] [address] [address] Kyree Neal Glucose [Mass/Vol] 120 mg/dL Critically high 74-[address] [facility] Comment on above: Performed By: #### H H #### [facility] [address] [address] [address] Kyree Neal Potassium [Moles/Vol] 3.6 mmol/L Normal 3.5-5.1 [facility] Comment on above: Performed By: #### H H #### [facility] [address] [address] [address] Kyree Neal Sodium [Moles/Vol] 138 mmol/L Normal 136-145 [facility] Comment on above: Performed By: #### H H #### [facility] [address] [address] [address] Kyree Neal Urea nitrogen [Mass/Vol] 36.0 mg/dL Critically high 7.0-18.0 [facility] Comment on above: Performed By: #### H H #### [facility] [address] [address] [address] Kyree Neal Urea nitrogen/Creatinine [Mass ratio] 26.9 mg/mg Normal [facility] Comment on above: Performed By: #### H H #### [facility] [address] [address] [address] Kyree Neal SED RATE [facility] 2022 SED RATE 80 mm/hr Critically high <=30 [facility] Comment on above: Performed By: #### H H #### [facility] [address] [address] [address] Kyree Neal US NGUYỄN DOP LEG [...] LUCILA PRABHAKAR Date: 2023-03-15 18:55 Normal [facility] XR KNEE LT 4V or >on 023 [...] NAVEEN AZAR Date: 2023-03-15 19:13 Normal [facility] US THYROIDon 01-07-2023 US THYROID EXAMINATION: US [...] NELIA TIJERINA Date: 2023-01-07 13:45 Normal [facility] C3 and C4 COMPLEMENTon 11-05 Complement C3, Serum 95 mg/dL Normal 82-167 [facility] Comment on above: Performed By: #### H H #### [facility] [address] [address] [address] Kyree Neal Complement C4, Serum 25 mg/dL Normal 12-38 [facility] Comment on above: Performed By: #### H H #### [facility] [address] [address] [address] Kyree Neal COMPLEMENT TOTAL (CH50)on Complement, Total (CH50) >60 Normal >41 [facility] Comment on above: Result Comment: Age Male [...] values. Performed By: #### C H50T #### [facility] [address] [address] [address] Kyree Neal SADDLE MAKER ANTIBODIESon 11-05-2022 SADDLE [employer] Antibodies <0.2 Normal 0.0-0.9 [facility] Comment on above: Performed By: #### R NPAB ####[facility] [address] [address]Dr. Kyree Neal CBC AUTO DIFFon 11-04-2022 BASO # 0.1 103/ul Normal 0.0-0.1 [facility] Comment on above: Performed By: #### S EDR #### [facility] [address] [address] [address] Kyree Neal Basophils/100 WBC (Bld) 1.2 % Normal 0.2-2.0 [facility] Comment on above: Performed By: #### S EDR #### [facility] [address] [address] [address] Kyree Neal EO # 0.6 103/ul Normal 0.0-0.7 [facility] Comment on above: Performed By: #### S EDR #### [facility] [address] [place] [address] Dr. Kyree Neal Eosinophils/100 WBC (Bld) 6.3 % Normal 0.9-7.0 [facility] Comment on above: Performed By: #### S EDR #### [facility] [address] [place] [address] Dr. Kyree Neal Erythrocyte distribution width (RBC) [Ratio] 13.5 % Normal 11.0-15.0 [facility] Comment on above: Performed By: #### S EDR #### [facility] [address] [place] [address] Dr. Kyree Neal Hematocrit (Bld) [Volume fraction] 39.0 % Normal 36.0-48.0 [facility] Comment on above: Performed By: #### S EDR #### [facility] [address] [place] [address] Dr. Kyree Neal Hemoglobin (Bld) [Mass/Vol] 12.6 g/dL Normal 12.0-16.0 [facility] Comment on above: Performed By: #### S EDR #### [facility] [address] [place] [address] Dr. Kyree Neal IG # 0.02 10e3/ul Normal 0.00-0.03 [facility] Comment on above: Performed By: #### S EDR #### [facility] [address] [place] [address] Dr. Kyree Neal IG % 0.2 % Normal 0.0-0.5 [facility] Comment on above: Performed By: #### S EDR #### [facility] [address] [address] [address] Kyree Neal LYMPH # 1.9 103/ul Normal 1.2-3.8 [facility] Comment on above: Performed By: #### S EDR #### [facility] [address] [address] [address] Kyree Neal Lymphocytes/100 WBC (Bld) 22.4 % Normal 20.5-60.0 [facility] Comment on above: Performed By: #### S EDR #### [facility] [address] [address] [address] Kyree Neal MANUAL DIFF REQ NO Normal [facility] Comment on above: Performed By: #### S EDR #### [facility] [address] [place] [address] Dr. Kyree Neal MCH (RBC) [Entitic mass] 28.1 pg Normal 26.7-34.0 [facility] Comment on above: Performed By: #### S EDR #### [facility] [address] [address] [address] Kyree Neal MCHC (RBC) [Mass/Vol] 32.3 g/dL Normal 29.9-35.2 [facility] Comment on above: Performed By: #### S EDR #### [facility] [address] [address] [address] Kyree eNal MCV (RBC) [Entitic vol] 87.1 fL Normal 81.0-99.0 [facility] Comment on above: Performed By: #### S EDR #### [facility] [address] [address] [address] Kyree Neal MONO # 0.8 103/ul Normal 0.3-0.8 [facility] Comment on above: Performed By: #### S EDR #### [facility] [address] [address] [address] Kyree Neal Monocytes/100 WBC (Bld) 9.0 % Normal 1.7-12.0 [facility] Comment on above: Performed By: #### S EDR #### [facility] [address] [place] [address] [address]. Kyree Neal NEUT # 5.3 103/ul Normal 1.4-6.5 The [facility] Comment on above: Performed By: #### S EDR #### [facility] Laboratory [id number] Kyree Neal Neutrophils/100 WBC (Bld) 60.9 % Normal 43.0-75.0 [facility] Comment on above: Performed By: #### S EDR #### [facility] [address] [address] [address] Kyree Neal Platelet mean volume (Bld) [Entitic vol] 9.7 fL Normal 9.5-13.5 The [facility] Comment on above: Performed By: #### S EDR #### [facility] [address] [address] [address] Kyree Neal PLT 232 103/ul Normal 150-450 The [facility] Comment on above: Performed By: #### S EDR #### [facility] [address] [address] [address] Kyree Neal RBC 4.48 106/ul Normal 4.20-5.40 [facility] Comment on above: Performed By: #### S EDR #### [facility] [address] [address] [address] Kyree Neal WBC 8.7 103/ul Normal 4.0-11.0 [facility] Comment on above: Performed By: #### S EDR #### [facility] [address] [address] [address] Kyree Neal CRPon 11-04-2022 CRP 1.8 mg/dL Critically high <=1.0 The [facility] Comment on above: Performed By: #### C RP, CMP ####[facility] [address] [place] [address]Dr. Kyree Neal PROF 14(COMP METB)on 023 Albumin [Mass/Vol] 3.6 g/dL Normal 3.4-5.0 [facility] Comment on above: Performed By: #### C RP, CMP ####[facility] [address] [place] [phone]. Kyree Neal Albumin/Globulin [Mass ratio] 1.0 {ratio} Normal [facility] Comment on above: Performed By: #### C RP, CMP ####[facility] [address] [place] [phone]. Kyree Neal ALP [Catalytic activity/Vol] 75 U/L Normal 46-116 [facility] Comment on above: Performed By: #### C RP, CMP ####[facility] [address] [place] [phone]. Aaliyahjeff Ángel ALT [Catalytic activity/Vol] 17 U/L Normal 14-59 [facility] Comment on above: Performed By: #### C RP, CMP ####[facility] [address] [place] [phone]. Kyree Neal Anion gap [Moles/Vol] 11.8 mmol/L Normal [facility] Comment on above: Performed By: #### C RP, CMP ####[facility] [address] [place] [address]Dr. Kyree Neal AST [Catalytic activity/Vol] 19 U/L Normal 15-37 [facility] Comment on above: Performed By: #### C RP, CMP ####[facility] [address] [place] [phone]. Kyree Neal Bilirubin [Mass/Vol] 0.6 mg/dL Normal 0.2-1.0 [facility] Comment on above: Performed By: #### C RP, CMP ####[facility] [address] [place] [phone]. Kyree Neal Calcium [Mass/Vol] 9.2 mg/dL Normal 8.5-10.1 [facility] Comment on above: Performed By: #### C RP, CMP ####[facility] [address] [place] [phone]. Kyree Neal Chloride [Moles/Vol] 99 mmol/L Normal 98-107 [facility] Comment on above: Performed By: #### C RP, CMP ####[facility] [address] [place] [phone]. Kyree Neal CO2 [Moles/Vol] 30.5 mmol/L Normal 21.0-32.0 The [facility] Comment on above: Performed By: #### C RP, CMP ####[facility] [address] [place] [phone]. Kyree Neal Creatinine [Mass/Vol] 1.03 mg/dL Critically high 0.55-1.02 The [facility] Comment on above: Performed By: #### C RP, CMP ####[facility] [address] [place] [phone]. Kyree Neal EGFR-AF CYMRO >60 Normal >=60 The [facility] Comment on above: Performed By: #### C RP, CMP ####[facility] [address] [place] [address]Dr. Kyree Ángel EGFR-NON AF CYMRO 53 mL/min/1.73m2 Critically low >=60 The [facility] Comment on above: Performed By: #### C RP, CMP ####[facility] [address] [place] [address]Dr. Kyree Neal Globulin (S) [Mass/Vol] 3.6 g/dL Normal [facility] Comment on above: Performed By: #### C RP, CMP ####[facility] [address] [place] [address]Dr. Kyree Neal Glucose [Mass/Vol] 97 mg/dL Normal 74-106 The [facility] Comment on above: Performed By: #### C RP, CMP ####[facility] [address] [place] [address]Dr. Kyree Neal Potassium [Moles/Vol] 3.3 mmol/L Critically low 3.5-5.1 The [facility] Comment on above: Performed By: #### C RP, CMP ####[facility] [address] [place] [address]Dr. Kyree Neal Protein [Mass/Vol] 7.2 g/dL Normal 6.4-8.2 The [facility] Comment on above: Performed By: #### C RP, CMP ####[facility] [address] [place] [phone] Neal Sodium [Moles/Vol] 138 mmol/L Normal 136-145 The [facility] Comment on above: Performed By: #### C RP, CMP ####[facility] [address] [place] [address]Dr. Kyree Neal Urea nitrogen [Mass/Vol] 28.0 mg/dL Critically high 7.0-18.0 [facility] Comment on above: Performed By: #### C RP, CMP ####[facility] [address] [place] [address]Dr. Kyree Neal Urea nitrogen/Creatinine [Mass ratio] 27.2 mg/mg Normal [facility] Comment on above: Performed By: #### C RP, CMP ####[facility] [address] [place] [address]DrDulce Neal SED RATE [facility] 2022 SED RATE 92 mm/hr Critically high <=30 The [facility] Comment on above: Performed By: #### S EDR #### [facility] Laboratory [address] [place] [address] Dr. Kyree Neal UA RANDOM W/MICROSCOPICon BACTERIA NONE SEEN Normal NONE SEEN [facility] Comment on above: Performed By: #### H H #### [facility] [address] [address] [address] Kyree Neal Bilirubin Ql (U) Negative Normal NEGATIVE The [facility] Comment on above: Performed By: #### H H #### [facility] [address] [address] [address] Kyree Neal CAST NONE SEEN Normal NONE SEEN [facility] Comment on above: Performed By: #### H H #### [facility] [address] [address] [address] Kyree Neal Clarity (U) CLEAR Normal CLEAR The [facility] Comment on above: Performed By: #### H H #### [facility] [address] [place] [address] Dr. Kyree Neal Color (U) YELLOW Normal YELLOW The [facility] Comment on above: Performed By: #### H H #### [facility] [address] [place] [address] Dr. Kyree Neal Crystals LM Nom (Urine sed) NONE SEEN Normal NONE SEEN [facility] Comment on above: Performed By: #### H H #### [facility] [address] [place] [address] Dr. Kyree Neal Epithelial cells LM Ql (Urine sed) RARE Normal NONE SEEN /RARE [facility] Comment on above: Performed By: #### H H #### [facility] [address] [place] [address] Dr. Kyree Neal Glucose Ql (U) Negative Normal NEGATIVE The [facility] Comment on above: Performed By: #### H H #### [facility] [address] [place] [address] Dr. Kyree Neal Hemoglobin Ql (U) Negative Normal NEGATIVE [facility] Comment on above: Performed By: #### H H #### [facility] [address] [place] [address] Dr. Kyree Neal Ketones Ql (U) Negative Normal NEGATIVE The [facility] Comment on above: Performed By: #### H H #### [facility] [address] [place] [address] Dr. Kyree Neal LEUKOCYTES Negative Normal NEGATIVE [facility] Comment on above: Performed By: #### H H #### [facility] [address] [place] [address] Dr. Kyree Neal MUCOUS NONE SEEN Normal NONE SEEN [facility] Comment on above: Performed By: #### H H #### [facility] [address] [place] [address] Dr. Kyree Neal Nitrite Ql (U) Negative Normal NEGATIVE The [facility] Comment on above: Performed By: #### H H #### [facility] [address] [place] [address] Dr. Kyree Neal pH (U) 7.0 [pH] Normal 5-9 The [facility] Comment on above: Performed By: #### H H #### [facility] [address] [address] [address] Kyree Neal RBC 0-2 Normal 0-2 [facility] Comment on above: Performed By: #### H H #### [facility] [address] [address] [address] Kyree Neal SPEC GRAVITY 1.010 Normal 1.005-<=1. 025 [facility] Comment on above: Performed By: #### H H #### [facility] [address] [address] [address] Kyree Neal UA PROTEIN Negative Normal NEGATIVE/ TRACE The [facility] Comment on above: Performed By: #### H H #### [facility] [address] [address] [address] Kyree Neal Urobilinogen Qn (U) 1.0 {Herrera'U}/dL Normal 0.2 - 1. 0 [facility] Comment on above: Performed By: #### H H #### [facility] [address] [address] [address] Kyree Neal WBC NONE SEEN Normal NONE SEEN The [facility] Comment on above: Performed By: #### H H #### [facility] [address] [address] [address] Kyree Neal Bacteria identified Anaer cx Nom (Unsp spec)on 10-06-2022 [facility] Glucose Auto test strip (Bld ) [Mass/Vol]on 10-06-2022 Glucose [Mass/Vol] 93 mg/dL 70 - 99 mg/dL [facility] Interpretation and review of laboratory results Normal [facility] Glucose [Mass/Vol] 101 mg/dL High 70 - 99 mg/dL [facility] Interpretation and review of laboratory results Abnormal [facility] Laboratory - Microbiology an d Antimicrobial susceptibilityon 10-06-2022 Bacteria identified Anaer cx Nom (Unsp spec) No anaerobes grown after 4 days. [facility] Bacteria identified Sterile body fluid culture Nom (Unsp spec)on 10-05-2022 Bacteria identified Cx Nom (Body fld) No growth at 3 days [facility] Glucose Auto test strip (Bld ) [Mass/Vol]on 10-05-2022 Glucose [Mass/Vol] 133 mg/dL High 70 - 99 mg/dL [facility] Interpretation and review of laboratory results Abnormal [facility] Glucose [Mass/Vol] 141 mg/dL High 70 - 99 mg/dL [facility] Interpretation and review of laboratory results Abnormal [facility] Laboratory - Microbiology an d Antimicrobial susceptibilityon 10-05-2022 Bacteria identified Cx Nom (Tiss) No growth at 3 days [facility] Microscopic observation Gram stain Nom (Unsp spec) No Polymorphonuclear leukocytes [facility] Comment on above: This is an appended report. These results have been appended to a previously preliminary verified report. Microscopic observation Gram stain Nom (Unsp spec) No Epithelial cells [facility] Comment on above: This is an appended report. These results have been appended to a previously preliminary verified report. Microscopic observation Gram stain Nom (Unsp spec) No organisms seen [facility] Comment on above: This is an appended report. These results have been appended to a previously preliminary verified report. No Panel Informationon 10-05 [facility] Basic metabolic 2000 panelon 10-04-2022 Anion gap [Moles/Vol] 8 mmol/L 6 - 18 [facility] Calcium [Mass/Vol] 9.3 mg/dL 8.9 - 10. 3 mg/dL [facility] Chloride [Moles/Vol] 107 mmol/L 98 - 10 7 mmol/L [facility] CO2 [Moles/Vol] 26 mmol/L 22 - 32 mmol/L [facility] Creatinine [Mass/Vol] 0.89 mg/dL 0.60 - 1.30 mg/dL [facility] GFR/1.73 sq M.predicted among non-blacks MDRD (S/P/Bld) [Vol rate/Area] 71 mL/min/{1.73_m2} - PINF [facility] Comment on above: Effective July 27, 2022, calculation based on the Chronic Kidney Disease Epidemiology Collaboration (CKD-EPI) equation refit without adjustment for race. Glucose [Mass/Vol] 94 mg/dL 70 - 99 mg/dL [facility] Interpretation and review of laboratory results Normal [facility] Potassium [Moles/Vol] 4.0 mmol/L 3.6 - 5.1 mmol/L [facility] Sodium [Moles/Vol] 141 mmol/L 136 - 145 mmol/L [facility] Urea nitrogen [Mass/Vol] 14 mg/dL 8 - 20 mg/dL [facility] Urea nitrogen/Creatinine [Mass ratio] 15.7 mg/mg 12.0 - 20.0 [facility] Glucose Auto test strip (Bld ) [Mass/Vol]on 10-04-2022 Glucose [Mass/Vol] 125 mg/dL High 70 - 99 mg/dL [facility] Interpretation and review of laboratory results Abnormal [facility] Glucose [Mass/Vol] 94 mg/dL 70 - 99 mg/dL [facility] Interpretation and review of laboratory results Normal [facility] Glucose [Mass/Vol] 93 mg/dL 70 - 99 mg/dL [facility] Interpretation and review of laboratory results Normal [facility] Glucose [Mass/Vol] 87 mg/dL 70 - 99 mg/dL [facility] Interpretation and review of laboratory results Normal [facility] Hemogram and platelets WO di fferential panel (Bld)on 10-04-2022 Erythrocyte distribution width (RBC) [Ratio] 13.9 % 11.0 - 14.8 % [facility] Hematocrit (Bld) [Volume fraction] 39.6 % 34.3 - 47.9 % [facility] Hemoglobin (Bld) [Mass/Vol] 12.2 g/dL 12.0 - 16.0 g/dL [facility] Interpretation and review of laboratory results Normal [facility] MCH (RBC) [Entitic mass] 27.7 pg [facility] MCHC (RBC) [Mass/Vol] 30.8 g/dL 30.8 - 35.3 g/dL [facility] MCV (RBC) [Entitic vol] 90.0 fL [facility] Platelet mean volume (Bld) [Entitic vol] 10.3 fL [facility] th Platelets (Bld) [#/Vol] 194 10*3/uL [facility] RBC (Bld) [#/Vol] 4.40 10*6/uL [facility] WBC (Bld) [#/Vol] 9.2 10*3/uL [facility] Basic metabolic 2000 panelon 10-03-2022 Anion gap [Moles/Vol] 9 mmol/L 6 - 18 [facility] Calcium [Mass/Vol] 9.0 mg/dL 8.9 - 10. 3 mg/dL [facility] Chloride [Moles/Vol] 105 mmol/L 98 - 10 7 mmol/L [facility] CO2 [Moles/Vol] 25 mmol/L 22 - 32 mmol/L [facility] Creatinine [Mass/Vol] 0.97 mg/dL 0.60 - 1.30 mg/dL [facility] GFR/1.73 sq M.predicted among non-blacks MDRD (S/P/Bld) [Vol rate/Area] 64 mL/min/{1.73_m2} - PINF [facility] Comment on above: Effective July 27, 2022, calculation based on the Chronic Kidney Disease Epidemiology Collaboration (CKD-EPI) equation refit without adjustment for race. Glucose [Mass/Vol] 132 mg/dL High 70 - 99 mg/dL [facility] Interpretation and review of laboratory results Abnormal [employer] Potassium [Moles/Vol] 4.6 mmol/L 3.6 - 5.1 mmol/L [employer] Sodium [Moles/Vol] 139 mmol/L 136 - 145 mmol/L [employer] Urea nitrogen [Mass/Vol] 19 mg/dL 8 - 20 mg/dL [employer] Urea nitrogen/Creatinine [Mass ratio] 19.6 mg/mg 12.0 - 20.0 [facility] Glucose Auto test strip (Bld ) [Mass/Vol]on 10-03-2022 Glucose [Mass/Vol] 122 mg/dL High 70 - 99 mg/dL [employer] Interpretation and review of laboratory results Abnormal [facility] Glucose [Mass/Vol] 150 mg/dL High 70 - 99 mg/dL [facility] Interpretation and review of laboratory results Abnormal [facility] Glucose [Mass/Vol] 116 mg/dL High 70 - 99 mg/dL [employer] Interpretation and review of laboratory results Abnormal [facility] Glucose [Mass/Vol] 115 mg/dL High 70 - 99 mg/dL [employer] Interpretation and review of laboratory results Abnormal [facility] Hemogram and platelets WO di fferential panel (Bld)on 10-03-2022 Erythrocyte distribution width (RBC) [Ratio] 13.9 % 11.0 - 14.8 % [facility] Hematocrit (Bld) [Volume fraction] 40.6 % 34.3 - 47.9 % [facility] Hemoglobin (Bld) [Mass/Vol] 13.0 g/dL 12.0 - 16.0 g/dL [facility] Interpretation and review of laboratory results Normal [facility] MCH (RBC) [Entitic mass] 28.8 pg [facility] MCHC (RBC) [Mass/Vol] 32.0 g/dL 30.8 - 35.3 g/dL [facility] MCV (RBC) [Entitic vol] 89.8 fL [facility] Platelet mean volume (Bld) [Entitic vol] 10.0 fL [facility] th Platelets (Bld) [#/Vol] 243 10*3/uL [facility] RBC (Bld) [#/Vol] 4.52 10*6/uL [facility] WBC (Bld) [#/Vol] 10.2 10*3/uL [facility] Pathology studyOrdered By: Lona Morel on 10-03-2022 Citation Jeff (Reference lab test) m4xthOEgLYIdoJZtZCIiXuhz ngReKZGrdKAhQ9NwqmekMQoe CE2uDD0wxSkeaISnbVIxGFLz MgZre4onw950nTSmf3ikFGJV viltrFo0o3inGZQCPQuoEANX JOo1rVnqY74gq7U3KrntR3qg SZYvRMlzkpMvpmT7BBYhiABb PHd9YHDtwHCbowMiNkAsFVCt cOPmeNG3PSEeNT0covfvHCkl MTfvZQQxvqU1ZAOurQNbP8Cn VORoSW4inbkrQEN5VXohJWVc UXT3IuEqYZVqb1Vqvvr7BmYm cGFyZFxwbGFpblxpXGYxXGZz YBhuY8TlUHKwHLG6LWClgyts IAvoI01niJ5xCE87CAmfpoMh WQEdk4ZmKGMkALZvRAzcWYRs fsFeAFbgrU4bt0e1ICvfMe9z ALSymhoaZAC7KpQkHX72Zkoi dHJlZSBBdmUsIENvbHVtYnVz XUXReIufJVMvXdY3YhTRsDWr r6Qwu7QhXvQmqFRauI5vbXfb lmU9DZBrhLUjKh6mzXTaTxjx YXJ9 [employer] Work Phone: Microscopic description Jeff (Endomyocardium) z3sspWBiYPBhtQORJBMcCZAf EX9akWjymRw7vNnyXJXurlP2 dDGqQXsdc9psHSC0c2wtdsAV XggsHWGbAJ8jNIwqNXWxVP7o ZmUwXGRlZmYyXHBhcGVydzEy KzDtAIBsgIBgiAN0QOJdIN7n dxbyHTcqGDdtBQFsmgG6LREa xVPcK8UjZJCuCG3xvxbfMXV0 EKGTWpyuZl2fqMKvlVTVKlaw ZjFcZmNoYXJzZXQwXGZuaWwg FAGmRNx8oL0Ox4xhSliqY4jo xwSykRCoQe1zbVQPGDteUVCJ XZj3oU1QSXTuH9CcVL7Pm5zx EFCpgSLiUVZ8VQvbl5aoTMtm NAI5RBRhDKWdNGEbGY3XRbBf RQI5JuE5BLR1JhH1ODk5BWAF HRIoIsy5OlLkXYa4IHb6JFke hhqpELw4WZAaVGlhhGIaCV8k lZwfRvcrrWphs6RpsZLlHEXo IFxcaWQgNTEwMDIgXFxkYiBP YaMmAlYlRwO9ZoS1BfKrQVh3 OChcW0UDPUDhDSN3OEp4UmP7 MaN9LVy8ASLPMz7xZdNrRIl7 JPc0ANQ7TXW5MiHaVYQsCyMz KLSxAJBqIMsgaKRmTQ1veWhb UHKnSQ7XYMQcSLlySTYiGUGc CcJpWD7kQ01nFKvdRMHzoXsh IeLdBRIhzGNsgOEntAFyd1N6 zPCbJRw0oCXmw6Y7uQpxOAqq ZmlsdHJhdGVzOlxwYXIgDQpc cGFyZCANClxwbGFpblxmMVxm vpHcDVStWKopCFr2vtMaZMIb KrWrUDNwG36rb3UAi4EzIS7R IXe7kaLteprjrC5zRNQmoiWw DQpcZjFcZnMyMCBSZWNlaXZl GNLtiqUsy5ZhYJntavEoFIYv xLHcZAwtiNsxmTL3oZOudXDh CD8bTSVgLKFlPRkvVzKhw72d ZRGrkTAzHRW5RMOoHPWwK9Bt U0W0IORdWaEraPAyucXdmQDb tX4xjiu6pD1qSMDmWBUmlUBo vV2qhxUefzGzGYO5nG4gMIMd FA4qLZYasVNkv6XbqCC0gRKa nEzcd3OwaLd1vHIdHMtuFORm z8HxPUChIhbmZCHaRLkvuWTh IU5JCOQcPrSdOSVaC6ksDGHe FZ9OODdirafMDsdjNVGpJTKm H0jpQAJdMMhsMUQdS75ct3HD w0Ubm8pagYnll3LjxUPuVQ68 OCPycSEiJMG6DC6pwTmcDTUr DQpcZjJcZnMyMiANCn0= [employer] Work Phone: Pathology report final diagnosis Narrative h9nhsNShLWFufLNbZMYkPtrv dsShGSYygAPaW6CnmkbeMNbc ZT2pSR3rnLxttTWtdUJcKWPc MjQom5czg027nKJvj3spNOGX gzcjyBw9oQhzM50eg4Z1Rdsu F9ihJHBzVPmdRWEgJWdyeVQs YCn5UQDhvPCsmcIcEdDdMYWo iPAaaCM6EWBiYE3mrlicRGou UYlgSMCmbxS6AASabTNjZ8Ws JDOpSW2ofnkaRHW8PFgcZGDd ADE7HmAtLUDdl9Zwfqh2IjKb oJx3o1guHCFkMUGwuMehy5wl VXH9VMAcyBEeZ3ykmB8oJWDx AT4oqxihb5ytPQinEMygQYOe mHN7lkB3QOBzlAYuC2WagU4r SSSgUJZjimSbyUflYnS9IQul lHZlehyzCaKmP49rqWW9nBZu tMXeABwuPwZod36xBMewbIGm LHEpBMLEIKsqdZy7KQQkm4Ha c7qpkhyykWVzalBftGEnyTDp d9H9kMMiASAqwn5izOQoaY7d eROctTD2hA7nDuxtBUH7 [employer] Work Phone: [employer] Work Phone: Cell count panel (Body fld)O rdered By: Navin Tracy on 10-02-2022 Clarity (Body fld) Hazy [facility] Color (Body fld) Yellow [employer] RBC Auto (Body fld) [#/Vol] 5000 /mm3 [employer] Comment on above: The reference range and other method performance specifications have not been established for this fluid specimen. The test result should be integrated into the clinical context for interpretation. Specimen source Nom (Body fld) Synovial [employer] WBC (Body fld) [#/Vol] 167 /mm3 [employer] Comment on above: The reference range and other method performance specifications have not been established for this fluid specimen. The test result should be integrated into the clinical context for interpretation. 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 [employer] Glucose Auto test strip (Bld ) [Mass/Vol]on 10-02-2022 Glucose [Mass/Vol] 188 mg/dL High 70 - 99 mg/dL [employer] Interpretation and review of laboratory results Abnormal [facility] Glucose [Mass/Vol] 121 mg/dL High 70 - 99 mg/dL [facility] Interpretation and review of laboratory results Abnormal [facility] Glucose [Mass/Vol] 78 mg/dL 70 - 99 mg/dL [employer] Interpretation and review of laboratory results Normal [employer] Glucose [Mass/Vol] 120 mg/dL High 70 - 99 mg/dL [employer] Interpretation and review of laboratory results Abnormal [facility] SARS-CoV-2 (COVID-19) RNA NA A+probe Ql (Resp)on 10-02-2022 Interpretation and review of laboratory results Normal [employer] SARS-CoV-2 (COVID-19) RdRp gene TORRES+probe Ql (Resp) Not detected Not Detected [employer] XR Knee 1-2 Views Lefton 1. Left total knee arthroplasty in appropriate position. -------- FINAL REPORT -------- Dictated By: Vlad Fiore Dictated Date: 10/02/2022 15:21 Assigned Physician: Vlad Fiore Reviewed and Electronically Signed By: Vlad Fiore Signed Date: 10/02/2022 15:22 Workstation ID: [id number] Transcribed By: Self Edit Transcribed Date: 10/02/2022 15:21 Mobile[employer]E EXAMINATION TYPE: XR KNEE 1-2 VIEWS LEFT [...] By: Self Edit Transcribed Date: 10/02/2022 15:21 [employer] Radiology Study observation (narrative) [employer] XR Knee 1-2 Views LeftOrdere d By: Vlad Fiore on 10-02-2022 [employer] Work Phone: Office Visit (Cardiology)on 09-25-2022 Follow-up [...] Weight Tips; Status:Complete - Retrospective Authorization; Done: [id number] Some eating tips that can help you lose weight.; Status:Complete - Retrospective Authorization; Done: [id number] SocHx: Former smoker Tobacco Use Screening; Status:Complete; Done: [id number] Patient Instructions Please bring all medicines, vitamins, [...] implantable device. 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 I reviewed her recent [...] Inhalation AerosolUSE (more content not included)... Normal [employer] Tobacco Screening.on 022 Fall risk assessment a) No falls within the last year -[facility] [employer] 250 DO Work Phone: Tobacco use status [facility] b) No [facility] 250 DO Work Phone: Tobacco Screening. Yes [facility] 250 DO Work Phone: PTH INTACTon 09-24-2022 PTH, Intact 31 pg/mL Normal 15-65 [facility] Comment on above: Performed By: #### P THINT ####[facility] [address] [address]Dr. Kyree Neal HEMOGRAM AND PLATELon 2021 Hematocrit (Bld) [Volume fraction] 38.4 % Normal 36.0-48.0 [facility] Comment on above: Performed By: #### H H #### [facility] [address] [address] [address] Kyree Neal Hemoglobin (Bld) [Mass/Vol] 12.2 g/dL Normal 12.0-16.0 [facility] Comment on above: Performed By: #### H H #### [facility] [address] [place] [address] Dr. Kyree Neal MCH (RBC) [Entitic mass] 28.6 pg Normal 26.7-34.0 [facility] Comment on above: Performed By: #### H H #### [facility] [address] [place] [address] Dr. Kyree Neal MCHC (RBC) [Mass/Vol] 31.8 g/dL Normal 29.9-35.2 [facility] Comment on above: Performed By: #### H H #### [facility] [address] [place] [address] Dr. Kyree Neal MCV (RBC) [Entitic vol] 89.9 fL Normal 81.0-99.0 [facility] Comment on above: Performed By: #### H H #### [facility] [address] [place] [address] Dr. Kyree Neal PLT 250 103/ul Normal 150-450 [facility] Comment on above: Performed By: #### H H #### [facility] [address] [place] [address] Dr. Kyree Neal RBC 4.27 106/ul Normal 4.20-5.40 [facility] Comment on above: Performed By: #### H H #### [facility] [address] [place] [address] Dr. Kyree Neal WBC 7.7 103/ul Normal 4.0-11.0 [facility] Comment on above: Performed By: #### H H #### [facility] [address] [address] [address] Kyree Neal MAGNESIUMon 09-23-2022 Magnesium [Mass/Vol] 2.2 mg/dL Normal 1.8-2.4 [facility] Comment on above: Performed By: #### U PRUDENCIO, CMP, MG ####[facility] [address] [address]DrDulce Neal PROF 14(COMP METB)on 022 Albumin [Mass/Vol] 3.5 g/dL Normal 3.4-5.0 [facility] Comment on above: Performed By: #### U PRUDENCIO, CMP, MG ####[facility] [address] [address]DrDulce Neal Albumin/Globulin [Mass ratio] 0.9 {ratio} Normal [facility] Comment on above: Performed By: #### U PRUDENCIO, CMP, MG ####[facility] [address] [phone] Neal ALP [Catalytic activity/Vol] 61 U/L Normal 46-116 [facility] Comment on above: Performed By: #### U PRUDENCIO, CMP, MG ####[facility] [address] [phone] Neal ALT [Catalytic activity/Vol] 23 U/L Normal 14-59 [facility] Comment on above: Performed By: #### U PRUDENCIO, CMP, MG ####[facility] [address] [phone] Neal Anion gap [Moles/Vol] 9.9 mmol/L Normal [facility] Comment on above: Performed By: #### U PRUDENCIO, CMP, MG ####[facility] [address] [phone]. Kyree Neal AST [Catalytic activity/Vol] 21 U/L Normal 15-37 [facility] Comment on above: Performed By: #### U PRUDENCIO, CMP, MG ####[facility] [address] [phone]. Kyree Neal Bilirubin [Mass/Vol] 0.3 mg/dL Normal 0.2-1.0 [facility] Comment on above: Performed By: #### U PRUDENCIO, CMP, MG ####[facility] [address] [phone]. Kyree Neal Calcium [Mass/Vol] 9.0 mg/dL Normal 8.5-10.1 [facility] Comment on above: Performed By: #### U PRUDENCIO, CMP, MG ####[facility] [address] [address]Dr. Kyree Neal Chloride [Moles/Vol] 106 mmol/L Normal 98-107 [facility] Comment on above: Performed By: #### U PRUDENCIO, CMP, MG ####[facility] [address] [address]Dr. Kyree Neal CO2 [Moles/Vol] 29.4 mmol/L Normal 21.0-32.0 The [facility] Comment on above: Performed By: #### U PRUDENCIO, CMP, MG ####[facility] [address] [place], [place] [address]Dr. Kyree Neal Creatinine [Mass/Vol] 0.90 mg/dL Normal 0.55-1.02 [facility] Comment on above: Performed By: #### U PRUDENCIO, CMP, MG ####[facility] [address] [address]Dr. Kyree Neal EGFR-AF CYMRO >60 Normal >=60 [facility] Comment on above: Performed By: #### U PRUDENCIO, CMP, MG ####[facility] [address] [phone]. Kyree Neal EGFR-NON AF CYMRO >60 Normal >=60 [facility] Comment on above: Performed By: #### U PRUDENCIO, CMP, MG ####[facility] [address] [address]Dr. Kyree Neal Globulin (S) [Mass/Vol] 3.8 g/dL Normal [facility] Comment on above: Performed By: #### U PRUDENCIO, CMP, MG ####[facility] [address] [phone]. Kyree Neal Glucose [Mass/Vol] 89 mg/dL Normal 74-106 [facility] Comment on above: Performed By: #### U PRUDENCIO, CMP, MG ####[facility] [address] [address]Dr. Kyree Neal Potassium [Moles/Vol] 4.3 mmol/L Normal 3.5-5.1 [facility] Comment on above: Performed By: #### U PRUDENCIO, CMP, MG ####[facility] [address] [address]Dr. Kyree Neal Protein [Mass/Vol] 7.3 g/dL Normal 6.4-8.2 [facility] Comment on above: Performed By: #### U PRUDENCIO, CMP, MG ####[facility] [address] [address]Dr. Kyree Neal Sodium [Moles/Vol] 141 mmol/L Normal 136-145 [facility] Comment on above: Performed By: #### U PRUDENCIO, CMP, MG ####[facility] [address] [address]Dr. Kyree Neal Urea nitrogen [Mass/Vol] 18.0 mg/dL Normal 7.0-18.0 [facility] Comment on above: Performed By: #### U PRUDENCIO, CMP, MG ####[facility] [address] [address]Dr. Kyree Neal Urea nitrogen/Creatinine [Mass ratio] 20.0 mg/mg Normal The [facility] Comment on above: Performed By: #### U PRUDENCIO, CMP, MG ####[facility] [address] [address]DrDulce Neal UA RANDOMon 09-23-2022 Bilirubin Ql (U) Negative Normal NEGATIVE [facility] Comment on above: Performed By: #### S EDR #### [facility] [address] [address] [address] Kyree Neal Clarity (U) CLEAR Normal CLEAR [facility] Comment on above: Performed By: #### S EDR #### [facility] [address] [address] [address] Kyree Neal Color (U) YELLOW Normal YELLOW [facility] Comment on above: Performed By: #### S EDR #### [facility] [address] [place] [address] Dr. Kyree Neal Glucose Ql (U) Negative Normal NEGATIVE [facility] Comment on above: Performed By: #### S EDR #### [facility] [address] [address] [address] Kyree Neal Hemoglobin Ql (U) Negative Normal NEGATIVE [facility] Comment on above: Performed By: #### S EDR #### [facility] [address] [place] [address] Dr. Kyree Neal Ketones Ql (U) Negative Normal NEGATIVE [facility] Comment on above: Performed By: #### S EDR #### [facility] [address] [place] [address] Dr. Kyree Neal LEUKOCYTES Negative Normal NEGATIVE [facility] Comment on above: Performed By: #### S EDR #### [facility] [address] [place] [address] Dr. Kyree Neal Nitrite Ql (U) Negative Normal NEGATIVE [facility] Comment on above: Performed By: #### S EDR #### [facility] [address] [place] [address] Dr. Kyree Neal pH (U) 5.5 [pH] Normal 5-9 [facility] Comment on above: Performed By: #### S EDR #### [facility] [address] [address] [address] Kyree Neal SPEC GRAVITY 1.025 Normal 1.005-<=1. 025 [facility] Comment on above: Performed By: #### S EDR #### [facility] [address] [place] [address] Dr. Kyree Neal UA PROTEIN Negative Normal NEGATIVE/ TRACE [facility] Comment on above: Performed By: #### S EDR #### [facility] [address] [address] [address] Kyree Neal Urobilinogen Qn (U) 0.2 {Herrera'U}/dL Normal 0.2 - 1. 0 [facility] Comment on above: Performed By: #### S EDR #### [facility] [address] [place] [address] Dr. Kyree Neal URIC ACID SERUMon 09-23-2022 Urate [Mass/Vol] 3.7 mg/dL Normal 2.6-6.0 [facility] Comment on above: Performed By: #### U PRUDENCIO, CMP, MG ####[facility] [address] [address]Dr. Kyree Neal URINE T PROTEIN CREAT RATIOo n 09-23-2022 Protein (U) [Mass/Vol] 11.1 mg/dL Normal <=12.0 [facility] Comment on above: Performed By: #### U RTPCR ####[facility] [address] [address]DrDulce Neal UR PROT CREAT RAT 0.18 Normal [facility] Comment on above: Performed By: #### U RTPCR ####[facility] [address] [address]Dr. Kyree Neal URINE CREAT 62.29 mg/dL Normal 20.00-300. 00 [facility] Comment on above: Performed By: #### U RTPCR ####[facility] [address] [address]Dr. Kyree Neal VITAMIN D 25 OHon 09-23-2022 VIT D 25-OH 57.7 ng/mL Normal [facility] Comment on above: Performed By: #### H H #### [facility] [address] [place] [address] Dr. Kyree Neal VIT D RANGES SEE BELOW Normal [facility] Comment on above: Result Comment: <20 ng/mL Vit D deficient 20 - <30 ng/mL Vit D insufficient 30 - 100 ng/mL Vit D sufficient >100 ng/mL Potential Toxicity Performed By: #### H H #### [facility] [address] [address] [address] Kyree Neal A1C HEMOGLOBINon 08-18-2022 HbA1c (Bld) [Mass fraction] 5.7 % [facility] [employer] Other HbA1c (Bld) [Mass fraction]o n 08-18-2022 A1C HEMOGLOBIN [facility] [employer] Other Urine culture routineOrdered By: Deidra Lee on 05-29-2022 Bacteria identified Cx Nom (U) Escherichia coli [facility] Automated erythrocytes count in urine sediment (number/area)Ordered By: Deidra Lee on 05-27-2022 RBC Auto (Urine sed) [#/Area] 10-19 [HPF] 0-4 [facility] Automated leukocytes count i n urine sediment (number/area)Ordered By: Deidra Lee on 05-27-2022 WBC Auto (Urine sed) [#/Area] 20-49 [HPF] 0-4 [facility] Bilirubin Test strip Ql (U)O rdered By: Deidra Lee on 05-27-2022 Bilirubin Ql (U) Negative Negative [facility] Color Auto (U)Ordered By: Sayda Lee on 05-27-2022 Color (U) Yellow Yellow [facility] Ketones Auto test strip (U) [Mass/Vol]Ordered By: Deidra Lee on 05-27-2022 Ketones (U) [Mass/Vol] Negative Negative [facility] - UrinalysisOrder ed By: Deidra Lee on 05-27-2022 Hyaline casts LM Ql (Urine sed) 0-8 [LPF] 0-8 [facility] Nitrite Test strip Ql (U)Ord ered By: Deidra Lee on 05-27-2022 Nitrite Ql (U) Negative Negative [facility] Protein Auto test strip (U) [Mass/Vol]Ordered By: Deidra Lee on 05-27-2022 Protein (U) [Mass/Vol] Negative Negative [facility] Specific gravity Auto test s trip (U) [Rel density]Ordered By: Deidra Lee on 05-27-2022 Specific gravity (U) [Rel density] 1.007 1.001-1.03 0 [facility] Squamous epithelial cells de tection in urine sediment by light microscopyOrdered By: Deidra Lee on 05-27-2022 Epithelial cells.squamous LM Ql (Urine sed) None seen [HPF] 0-2 [facility] Urine bacteria detection by automated methodOrdered By: Deidra Lee on 05-27-2022 Bacteria Auto Ql (U) 2+ None Seen [facility] Urine clarity by refractomet ry automatedOrdered By: Deidra Lee on 05-27-2022 Clarity Refractometry automated (U) Clear Clear [facility] Urine glucose measurement by automated test strip (mass/volume)Ordered By: Deidra Lee on 05-27-2022 Glucose Auto test strip (U) [Mass/Vol] Normal mg/dL Normal [facility] Urine hemoglobin detection b y automated test stripOrdered By: Deidra Lee on 05-27-2022 Hemoglobin Auto test strip Ql (U) 2+ Negative [facility] Urine leukocyte esterase det ection by automated test stripOrdered By: Deidra Lee on 05-27-2022 Leukocyte esterase Auto test strip Ql (U) 3+ Negative [facility] Urobilinogen Auto test strip (U) [Mass/Vol]Ordered By: Deidra Lee on 05-27-2022 Urobilinogen (U) [Mass/Vol] Normal mg/dL Normal [facility] pH Auto test strip (U)Ordere d By: Deidra Lee on 05-27-2022 pH (U) 5.5 [pH] 5.0-9.0 [facility] Basophils Auto (Bld) [#/Vol] Ordered By: Peter Sosa on 05-21-2022 Basophils (Bld) [#/Vol] 0.1 10*3/uL 0.0-0.2 [facility] Basophils/100 WBC Auto (Bld) Ordered By: Peter Sosa on 05-21-2022 Basophils/100 WBC (Bld) 0.8 % . [facility] Blood hemoglobin measurement (mass/volume)Ordered By: Peter Sosa on 05-21-2022 Hemoglobin (Bld) [Mass/Vol] 12.8 g/dL 11.8-15.4 [facility] Blood leukocytes automated c ount (number/volume)Ordered By: Peter Sosa on 05-21-2022 WBC (Bld) [#/Vol] 8.5 10*3/uL 4.5-11.0 [facility] Body fluid albumin measureme nt (mass/volume)Ordered By: Peter Sosa on 05-21-2022 Albumin (Body fld) [Mass/Vol] 3.7 g/dL 3.2-5.5 [facility] Cholesterol [Mass/volume] in Serum or PlasmaOrdered By: Peter Sosa on 05-21-2022 Cholesterol [Mass/Vol] 204 mg/dL 140-200 [facility] Comment on above: Chol less than 200 m g/dl low risk Chol 201-239 mg/dl borderline risk Chol 240 mg/dl and greater high risk Cholesterol in LDL Calc [Mas s/Vol]Ordered By: Peter Sosa on 05-21-2022 Cholesterol in LDL [Mass/Vol] 129 mg/dL 0-100 [facility] Comment on above: LDL ATP III CLASSIFI CATION LDL less than 100 mg/dL Optimal LDL 100-129 mg/dL Near or above optimal LDL 130-159 mg/dL Borderline high LDL 160-189 mg/dL High LDL greater than 189 mg/dL Very high Cholesterol in VLDL Calc [Ma ss/Vol]Ordered By: Peter Sosa on 05-21-2022 Cholesterol in VLDL [Mass/Vol] 20 mg/dL [facility] Creatinine [Mass/volume] in UrineOrdered By: Peter Sosa on 05-21-2022 Creatinine (U) [Mass/Vol] 185.2 mg/dL [facility] Comment on above: No reference range e stablished Creatinine and Glomerular fi ltration rate.predicted panel (S/P/Bld)Ordered By: Peter Sosa on 05-21-2022 Creatinine [Mass/Vol] 1.31 mg/dL 0.44-1.03 [facility] Eosinophils Auto (Bld) [#/Vo l]Ordered By: Peter Sosa on 05-21-2022 Eosinophils (Bld) [#/Vol] 0.3 10*3/uL 0.0-0.45 [facility] Eosinophils/100 WBC Auto (Bl d)Ordered By: Peter Sosa on 05-21-2022 Eosinophils/100 WBC (Bld) 3.4 % . [facility] Erythrocyte distribution wid th Auto (RBC) [Ratio]Ordered By: Peter Sosa on 05-21-2022 Erythrocyte distribution width (RBC) [Ratio] 14.8 % 11.9-15.3 [facility] Estimated glomerular filtrat ion rate (GFR) non- AmericanOrdered By: Peter Sosa on 05-21-2022 GFR/1.73 sq M.predicted among non-blacks MDRD (S/P/Bld) [Vol rate/Area] 41 mL/Min [facility] Folate [Mass/volume] in Seru m or PlasmaOrdered By: Peter Sosa on 05-21-2022 Folate [Mass/Vol] ng/mL >5.9 [facility] Comment on above: Folate reference ran ge: >5.9 ng/ml The WHO technical consultation on folate and vitamin b12 deficiencies has determined that folate concentrations less than 4 ng/ml are considered deficient. Globulin Calc (S) [Mass/Vol] Ordered By: Peter Sosa on 05-21-2022 Globulin (S) [Mass/Vol] 2.7 g/dL [facility] Hematocrit Auto (Bld) [Volum e fraction]Ordered By: Peter Sosa on 05-21-2022 Hematocrit (Bld) [Volume fraction] 39.9 % 34.0-46.4 [facility] Laboratory - Chemistry and C hemistry - challengeOrdered By: Peter Sosa on 05-21-2022 Cobalamin (Vitamin B12) [Mass/Vol] 384 pg/mL 180-914 [facility] Laboratory - Hematology and Cell countsOrdered By: Peter Sosa on 05-21-2022 Nucleated RBC/100 WBC (Bld) [Ratio] 0.1 % 0-0.5 [facility] Lymphocytes Auto (Bld) [#/Vo l]Ordered By: Peter Sosa on 05-21-2022 Lymphocytes (Bld) [#/Vol] 1.9 10*3/uL 1.00-4.8 [facility] Lymphocytes/100 WBC Auto (Bl d)Ordered By: Peter Sosa on 05-21-2022 Lymphocytes/100 WBC (Bld) 22.6 % . [facility] MCH Auto (RBC) [Entitic mass ]Ordered By: Peter Sosa on 05-21-2022 MCH (RBC) [Entitic mass] 28.2 pg 24.7-34.3 [facility] MCHC Auto (RBC) [Mass/Vol]Or dered By: Peter Sosa on 05-21-2022 MCHC (RBC) [Mass/Vol] 32.0 g/dL 32.0-35.0 [facility] MCV Auto (RBC) [Entitic vol] Ordered By: Peter Sosa on 05-21-2022 MCV (RBC) [Entitic vol] 87.9 fL 80-100 [facility] Monocytes Auto (Bld) [#/Vol] Ordered By: Peter Sosa on 05-21-2022 Monocytes (Bld) [#/Vol] 0.7 10*3/uL 0.0-0.8 [facility] Monocytes/100 WBC Auto (Bld) Ordered By: Peter Sosa on 05-21-2022 Monocytes/100 WBC (Bld) 8.4 % . [facility] Neutrophils Auto (Bld) [#/Vo l]Ordered By: Peter Sosa on 05-21-2022 Neutrophils (Bld) [#/Vol] 5.5 10*3/uL 1.8-7.7 [facility] Neutrophils/100 WBC Auto (Bl d)Ordered By: Peter Sosa on 05-21-2022 Neutrophils/100 WBC (Bld) 64.8 % . [facility] No Panel InformationOrdered By: Peter Sosa on 05-21-2022 25-Hydroxy Vitamin D Total 50.4 ng/mL 30-100 [facility] Comment on above: VITAMIN D STATUS 25( OH)VITAMIN D RANGE (ng/mL) Deficient <20 Insufficient 20 to <30 Sufficient 30 to 100 Reference: Lubna MF,Aleida NC, Tavo EDWARDS, et al. Evaluation,treatment, and prevention of vitamin D deficiency; an Endocrine Society clinical practice guideline. JCEM. 2010; 96(1):1911-30. Estimated GFR () 49 mL/Min [facility] Comment on above: GFR estimated refere nce range: According to KDOQI guidelines, <60 ml/min/1.73m2 is sufficient to diagnose a patient with chronic kidney disease. Pharmacy Creatinine Clearance (Chem N/A [facility] Platelet mean volume Auto (B ld) [Entitic vol]Ordered By: Peter Sosa on 05-21-2022 Platelet mean volume (Bld) [Entitic vol] 8.4 fL 6.3-10.7 [facility] Platelets Auto (Bld) [#/Vol] Ordered By: Peter Sosa on 05-21-2022 Platelets (Bld) [#/Vol] 240 10*3/uL 150-450 [facility] Protein [Mass/volume] in Ser um or PlasmaOrdered By: Peter Sosa on 05-21-2022 Protein [Mass/Vol] 6.4 g/dL 6.1-7.9 [facility] RBC Auto (Bld) [#/Vol]Ordere d By: Peter Sosa on 05-21-2022 RBC (Bld) [#/Vol] 4.54 10*6/uL 3.60-5.00 [facility] Serum or plasma alanine victoria otransferase measurement without P-5'-P (enzymatic activiOrdered By: Peter Sosa on 05-21-2022 ALT No additional P-5'-P [Catalytic activity/Vol] 27 U/L 10-60 [facility] Serum or plasma albumin/glob ulin mass ratioOrdered By: Peter Sosa on 05-21-2022 Albumin/Globulin [Mass ratio] 1.4 {ratio} [facility] Serum or plasma alkaline adams sphatase measurement (enzymatic activity/volume)Ordered By: Peter Sosa on 05-21-2022 ALP [Catalytic activity/Vol] 59 U/L 32-92 [facility] Serum or plasma aspartate am inotransferase measurement (enzymatic activity/volume)Ordered By: Peter Sosa on 05-21-2022 AST [Catalytic activity/Vol] 26 U/L 10-42 [facility] Serum or plasma calcium darrell urement (mass/volume)Ordered By: Peter Sosa on 05-21-2022 Calcium [Mass/Vol] 9.5 mg/dL 8.2-10.2 [facility] Serum or plasma chloride jose surement (moles/volume)Ordered By: Peter Sosa on 05-21-2022 Chloride [Moles/Vol] 102 mmol/L 95-114 [facility] Serum or plasma glucose darrell urement (mass/volume)Ordered By: Peter Sosa on 05-21-2022 Glucose [Mass/Vol] 93 mg/dL 70-100 [facility] Comment on above: ADA recommended refe rence range Random Glucose Reference Range is dependent on time and content of last meal. Glucose of more than 200 mg/dL in a nonstressed, ambulatory subject supports the diagnosis of Diabetes Mellitus. Serum or plasma high density lipoprotein (HDL) cholesterol measurementOrdered By: Peter Sosa on 05-21-2022 Cholesterol in HDL [Mass/Vol] 55 mg/dL 35-85 [facility] Comment on above: HDL CHOL ATP-III CLA SSIFICATION Cardiovascular Risk HDL > or equal to 60 mg/dL LOW HDL < 40 mg/dL HIGH Serum or plasma potassium me asurement (moles/volume)Ordered By: Peter Sosa on 05-21-2022 Potassium [Moles/Vol] 4.2 mmol/L 3.5-5.1 [facility] Serum or plasma sodium measu rement (moles/volume)Ordered By: Peter Sosa on 05-21-2022 Sodium [Moles/Vol] 140 mmol/L 136-146 [facility] Serum or plasma total biliru bin measurement (mass/volume)Ordered By: Peter Sosa on 05-21-2022 Bilirubin [Mass/Vol] 0.4 mg/dL 0.3-1.2 [facility] Serum or plasma total carbon dioxide measurement (moles/volume)Ordered By: Peter Sosa on 05-21-2022 CO2 [Moles/Vol] 29.5 mmol/L 22.0-30.0 [facility] Serum or plasma total choles terol/high density lipoprotein (HDL) cholesterol mass ratOrdered By: Peter Sosa on 05-21-2022 Cholesterol.total/Chol esterol in HDL [Mass ratio] 3.7 {ratio} <5.0 [facility] Serum or plasma urea nitroge n measurement (mass/volume)Ordered By: Peter Sosa on 05-21-2022 Urea nitrogen [Mass/Vol] 30 mg/dL 9-23 [facility] TSH DL <= 0.005 mIU/L QnOrde red By: Peter Sosa on 05-21-2022 TSH Qn 2.03 m[IU]/L 0.45-5.33 [facility] Thyroxine (T4) free [Mass/vo lume] in Serum or PlasmaOrdered By: Peter Sosa on 05-21-2022 Free T4 [Mass/Vol] 0.96 ng/dL 0.61-1.12 [facility] Triglyceride [Mass/volume] i n Serum or PlasmaOrdered By: Peter Sosa on 05-21-2022 Triglyceride [Mass/Vol] 102 mg/dL 35-149 [facility] Comment on above: TRIG ATP III CLASSIF ICATION TRIG less than 150 mg/dL Normal TRIG 150-199 mg/dL Borderline high TRIG 200-500 mg/dL High TRIG greater than 500 mg/dL Very high Standard traceable to the Center for Disease Conrtrol and Prevention (CDC) test method. Triiodothyronine (T3) Free [ Mass/volume] in Serum or PlasmaOrdered By: Peter Sosa on 05-21-2022 Free T3 [Mass/Vol] 3.88 pg/mL 2.50-3.90 [facility] Urine microalbumin measureme nt with detection limit of 20 mg/L or less (mass/volume)Ordered By: Peter Sosa on 05-21-2022 Albumin DL <= 20 mg/L (U) [Mass/Vol] mg/dL 0.0-1.8 [facility] Urine microalbumin/creatinin e mass ratioOrdered By: Peter Sosa on 05-21-2022 Albumin/Creatinine DL <= 20 mg/L (U) [Mass ratio] TNP [facility] Comment on above: Test not performed US [...] ANUSHA WHITESIDE Date: 2022-05-08 16:18 Normal [facility] C3 and C4 COMPLEMENTon 04-30 Complement C3, Serum 173 mg/dL Critically high 82-167 [facility] Comment on above: Performed By: #### S EDR #### [facility] Laboratory [address] [address] [address] Kyree Neal Complement C4, Serum 35 mg/dL Normal 12-38 [facility] Comment on above: Performed By: #### S EDR #### [facility] [address] [address] [address] Kyree Neal COMPLEMENT TOTAL (CH50)on Complement, Total (CH50) >60 Normal >41 [facility] Comment on above: Result Comment: Age Male [...] range values. Performed By: #### C H50T ####[facility] [address] [place], [place] [address]MrDr. Kyree Neal SADDLE MAKER ANTIBODIESon 04-30-2022 SADDLE MAKER Antibodies <0.2 Normal 0.0-0.9 [facility] Comment on above: Performed By: #### S EDR #### [facility] [address] [place], [place] [address] Dr. Kyree Neal CBC AUTO DIFFon 04-29-2022 BASO # 0.1 103/ul Normal 0.0-0.1 [facility] Comment on above: Performed By: #### C BC ####[facility] [address] [place], [place] [address]Dr. Kyree Neal Basophils/100 WBC (Bld) 0.9 % Normal 0.2-2.0 [facility] Comment on above: Performed By: #### C BC ####[facility] [address] [place], [place] [address]Dr. Kyree Neal EO # 0.4 103/ul Normal 0.0-0.7 [facility] Comment on above: Performed By: #### C BC ####[facility] [address] [place], [place] [address]Dr. Kyree Neal Eosinophils/100 WBC (Bld) 5.4 % Normal 0.9-7.0 [facility] Comment on above: Performed By: #### C BC ####[facility] [address] [place], [place] [address]Dr. Kyree Neal Erythrocyte distribution width (RBC) [Ratio] 13.9 % Normal 11.0-15.0 [facility] Comment on above: Performed By: #### C BC ####[facility] [address] [place], [place] [address]Dr. Kyree Neal Hematocrit (Bld) [Volume fraction] 40.9 % Normal 36.0-48.0 [facility] Comment on above: Performed By: #### C BC ####[facility] [address] [place], [place] [address]Dr. Kyree Neal Hemoglobin (Bld) [Mass/Vol] 12.8 g/dL Normal 12.0-16.0 [facility] Comment on above: Performed By: #### C BC ####[facility] [address] [place], [place] [address]Dr. Kyree Neal IG # 0.03 10e3/ul Normal 0.00-0.03 [facility] Comment on above: Performed By: #### C BC ####[facility] [address] [place], [place] [address]Dr. Kyree Neal IG % 0.4 % Normal 0.0-0.5 [facility] Comment on above: Performed By: #### C BC ####[facility] [address] [address]DrDulce Kyree Ángel LYMPH # 1.7 103/ul Normal 1.2-3.8 [facility] Comment on above: Performed By: #### C BC ####[facility] [address] [address]DrDulce Aaliyahjeff Neal Lymphocytes/100 WBC (Bld) 21.2 % Normal 20.5-60.0 [facility] Comment on above: Performed By: #### C BC ####[facility] [address] [address]DrDulce Aaliyahjeff Neal MANUAL DIFF REQ NO Normal [facility] Comment on above: Performed By: #### C BC ####[facility] [address] [place], [place] [address]Dr. Kyree Ángel MCH (RBC) [Entitic mass] 28.2 pg Normal 26.7-34.0 [facility] Comment on above: Performed By: #### C BC ####[facility] [address] [place], [place] [address]Dr. Kyree Ángel MCHC (RBC) [Mass/Vol] 31.3 g/dL Normal 29.9-35.2 [facility] Comment on above: Performed By: #### C BC ####[facility] [address] [place], [place] [address]Dr. Kyree Ángel MCV (RBC) [Entitic vol] 90.1 fL Normal 81.0-99.0 [facility] Comment on above: Performed By: #### C BC ####[facility] [address] [place], [place] [address]DrDulce Neal MONO # 0.6 103/ul Normal 0.3-0.8 [facility] Comment on above: Performed By: #### C BC ####[facility] [address] [place], [place] [address]Dr. Aaliyahjeff Neal Monocytes/100 WBC (Bld) 8.2 % Normal 1.7-12.0 [facility] Comment on above: Performed By: #### C BC ####[facility] [address] [place] [id number]. Kyree Neal NEUT # 5.0 103/ul Normal 1.4-6.5 [facility] Comment on above: Performed By: #### C BC ####[facility] [address] [id number]. Kyree Neal Neutrophils/100 WBC (Bld) 63.9 % Normal 43.0-75.0 [facility] Comment on above: Performed By: #### C BC ####[facility] [address] [place] [address]DrDulce Neal Platelet mean volume (Bld) [Entitic vol] 9.7 fL Normal 9.5-13.5 [facility] Comment on above: Performed By: #### C BC ####[facility] [address] [address]Dr. Kyree Neal PLT 245 103/ul Normal 150-450 [facility] Comment on above: Performed By: #### C BC ####[facility] [address] [id number]. Kyree Neal RBC 4.54 106/ul Normal 4.20-5.40 [facility] Comment on above: Performed By: #### C BC ####[facility] [address] [id number]. Kyree Neal WBC 7.8 103/ul Normal 4.0-11.0 [facility] Comment on above: Performed By: #### C BC ####[facility] [address] [place] [id number] Neal CRPon 04-29-2022 CRP 1.1 mg/dL Critically high <=1.0 [facility] Comment on above: Performed By: #### H H #### [facility] Laboratory [address] [place], [place] [address] Dr. Kyree Neal PROF 14(COMP METB)on 07-12-2 022 Albumin [Mass/Vol] 3.5 g/dL Normal 3.4-5.0 [facility] Comment on above: Performed By: #### H H #### [facility] Laboratory [address] [place] [address] Dr. Kyree Neal Albumin/Globulin [Mass ratio] 0.9 {ratio} Normal [facility] Comment on above: Performed By: #### H H #### [facility] [address] [place] [address] Dr. Kyree Neal ALP [Catalytic activity/Vol] 64 U/L Normal 46-116 [facility] Comment on above: Performed By: #### H H #### [facility] [address] [place] [address] Dr. Kyree Neal ALT [Catalytic activity/Vol] 29 U/L Normal 14-59 [facility] Comment on above: Performed By: #### H H #### [facility] [address] [place] [address] Dr. Kyree Neal Anion gap [Moles/Vol] 10.5 mmol/L Normal [facility] Comment on above: Performed By: #### H H #### [facility] [address] [place] [address] Dr. Kyree Neal AST [Catalytic activity/Vol] 20 U/L Normal 15-37 [facility] Comment on above: Performed By: #### H H #### [facility] [address] [place] [address] Dr. Kyree Neal Bilirubin [Mass/Vol] 0.4 mg/dL Normal 0.2-1.0 [facility] Comment on above: Performed By: #### H H #### [facility] [address] [place] [address] Dr. Kyree Neal Calcium [Mass/Vol] 9.4 mg/dL Normal 8.5-10.1 [facility] Comment on above: Performed By: #### H H #### [facility] [address] [place] [address] Dr. Kyree Neal Chloride [Moles/Vol] 106 mmol/L Normal 98-107 [facility] Comment on above: Performed By: #### H H #### [facility] [address] [address] [address] Kyree Neal CO2 [Moles/Vol] 30.4 mmol/L Normal 21.0-32.0 [facility] Comment on above: Performed By: #### H H #### [facility] [address] [address] [address] Kyree Neal Creatinine [Mass/Vol] 1.03 mg/dL Critically high 0.55-1.02 [facility] Comment on above: Performed By: #### H H #### [facility] [address] [address] [address] Kyree Neal EGFR-AF CYMRO >60 Normal >=60 [facility] Comment on above: Performed By: #### H H #### [facility] [address] [address] [address] Kyree Neal EGFR-NON AF CYMRO 54 mL/min/1.73m2 Critically low >=60 [facility] Comment on above: Performed By: #### H H #### [facility] [address] [address] [address] Kyree Neal Globulin (S) [Mass/Vol] 3.8 g/dL Normal [facility] Comment on above: Performed By: #### H H #### [facility] [address] [address] [address] Kyree Neal Glucose [Mass/Vol] 131 mg/dL Critically high 74-106 [facility] Comment on above: Performed By: #### H H #### [facility] [address] [address] [address] Kyree Neal Potassium [Moles/Vol] 3.9 mmol/L Normal 3.5-5.1 [facility] Comment on above: Performed By: #### H H #### [facility] [address] [address] [address] Kyree Neal Protein [Mass/Vol] 7.3 g/dL Normal 6.4-8.2 [facility] Comment on above: Performed By: #### H H #### [facility] [address] [address] [address] Kyree Neal Sodium [Moles/Vol] 143 mmol/L Normal 136-145 [facility] Comment on above: Performed By: #### H H #### [facility] [address] [address] [address] Kryee Neal Urea nitrogen [Mass/Vol] 24.0 mg/dL Critically high 7.0-18.0 [facility] Comment on above: Performed By: #### H H #### [facility] [address] [address] [address] Kyree Neal Urea nitrogen/Creatinine [Mass ratio] 23.3 mg/mg Normal [facility] Comment on above: Performed By: #### H H #### [facility] [address] [place] [address] Dr. Kyree Neal [facility] SED RATE 40 mm/hr Critically high <=30 [facility] Comment on above: Performed By: #### H H #### [facility] [address] [place] [address] Dr. Kyree Neal UA RANDOM W/MICROSCOPICon BACTERIA NONE SEEN Normal NONE SEEN [facility] Comment on above: Performed By: #### U AMIC #### [facility] [address] [place] [address] Dr. Kyree Neal Bilirubin Ql (U) Negative Normal NEGATIVE The [facility] Comment on above: Performed By: #### U AMIC #### [facility] [address] [place] [address] Dr. Kyree Neal CAST NONE SEEN Normal NONE SEEN [facility] Comment on above: Performed By: #### U AMIC #### [facility] [address] [place] [address] Dr. Kyree Neal Clarity (U) CLEAR Normal CLEAR [facility] Comment on above: Performed By: #### U AMIC #### [facility] [address] [place] [address] Dr. Kyree Neal Color (U) LT. YELLOW Normal YELLOW [facility] Comment on above: Performed By: #### U AMIC #### [facility] [address] [address] [address] Kyree Neal Crystals LM Nom (Urine sed) NONE SEEN Normal NONE SEEN [facility] Comment on above: Performed By: #### U AMIC #### [facility] [address] [address] [address] Kyree Neal Epithelial cells LM Ql (Urine sed) MODERATE Abnormal NONE SEEN /RARE [facility] Comment on above: Performed By: #### U AMIC #### [facility] [address] [address] [address] Kyree Neal Glucose Ql (U) Negative Normal NEGATIVE [facility] Comment on above: Performed By: #### U AMIC #### [facility] [address] [address] [address] Kyree Neal Hemoglobin Ql (U) Negative Normal NEGATIVE [facility] Comment on above: Performed By: #### U AMIC #### [facility] [address] [address] [address] Kyree Neal Ketones Ql (U) Negative Normal NEGATIVE The [facility] Comment on above: Performed By: #### U AMIC #### [facility] [address] [address] [address] Kyree Neal LEUKOCYTES Negative Normal NEGATIVE [facility] Comment on above: Performed By: #### U AMIC #### [facility] [address] [address] [address] Kyree Neal MUCOUS NONE SEEN Normal NONE SEEN [facility] Comment on above: Performed By: #### U AMIC #### [facility] [address] [address] [address] Kyree Neal Nitrite Ql (U) Negative Normal NEGATIVE [facility] Comment on above: Performed By: #### U AMIC #### [facility] [address] [address] [address] Kyree Neal pH (U) 5.5 [pH] Normal 5-9 [facility] Comment on above: Performed By: #### U AMIC #### [facility] [address] [address] [address] Kyree Neal RBC NONE SEEN Abnormal 0-2 [facility] Comment on above: Performed By: #### U AMIC #### [facility] [address] [address] [address] Kyree Neal SPEC GRAVITY 1.015 Normal 1.005-<=1. 025 [facility] Comment on above: Performed By: #### U AMIC #### [facility] [address] [address] [address] Kyree Neal UA PROTEIN Negative Normal NEGATIVE/ TRACE [facility] Comment on above: Performed By: #### U AMIC #### [facility] [address] [address] [address] Kyree Neal Urobilinogen Qn (U) 0.2 {Herrera'U}/dL Normal 0.2 - 1. 0 [facility] Comment on above: Performed By: #### U AMIC #### [facility] [address] [address] [address] Kyree Neal WBC NONE SEEN Normal NONE SEEN [facility] Comment on above: Performed By: #### U AMIC #### [facility] [address] [address] [address] Kyree Neal CRPon 04-25-2022 CRP 0.9 mg/dL Normal <=1.0 [facility] Comment on above: Performed By: #### C RP ####[facility] [address] [address]Dr. Kyree Neal SED RATE WESTERGRENon 2021 SED RATE 39 mm/hr Critically high <=30 [facility] Comment on above: Performed By: #### S EDR #### [facility] [address] [address] [address] Kyree Neal Basic Metabolic PanelOrdered By: Reynaldo Trejo on 04-16-2022 Chloride [Moles/Vol] 100 mmol/L 95-114 [facility] Glucose [Mass/Vol] 129 mg/dL 70-100 [facility] Comment on above: ADA recommended refe rence [...] Diabetes Mellitus. Sodium [Moles/Vol] 140 mmol/L 136-146 [facility] Urea nitrogen [Mass/Vol] 27 mg/dL 07-11 [facility] Basic Metabolic Panelon 03-20 Calcium [Mass/Vol] 9.2066764 mg/dL Normal 8.2-10 .2 mg/dL [facility] [employer] Other CO2 [Moles/Vol] 29.82252960 mmol/L Normal 22.0-3 0.0 mmol/L [facility] [employer] Other Creatinine [Mass/Vol] 1.58757392 mg/dL High 0. 44-1.03 mg/dL [facility] [employer] Other Potassium [Moles/Vol] 3.08811254 mmol/L Normal 3 .5-5.1 mmol/L [facility] [employer] Other Basic Metabolic Panel [address] [facility] [employer] Other Creatinine and Glomerular fi ltration rate.predicted panel (S/P/Bld)Ordered By: Reynaldo Trejo on 04-16-2022 Creatinine [Mass/Vol] 1.06 mg/dL 0.44-1.03 [facility] Estimated glomerular filtrat ion rate (GFR) non- AmericanOrdered By: Reynaldo Trejo on 04-16-2022 GFR/1.73 sq M.predicted among non-blacks MDRD (S/P/Bld) [Vol rate/Area] 52 mL/Min [facility] No Panel InformationOrdered By: Reynaldo Trejo on 04-16-2022 Estimated GFR () > 60 mL/Min [facility] Comment on above: GFR estimated refere nce range: According to KDOQI guidelines, <60 ml/min/1.73m2 is sufficient to diagnose a patient with chronic kidney disease. Pharmacy Creatinine Clearance (Chem N/A [facility] Serum or plasma calcium darrell urement (mass/volume)Ordered By: Reynaldo Trejo on 04-16-2022 Calcium [Mass/Vol] 9.7 mg/dL 8.2-10.2 [facility] Serum or plasma potassium me asurement (moles/volume)Ordered By: Reynaldo Trejo on 04-16-2022 Potassium [Moles/Vol] 3.8 mmol/L 3.5-5.1 [facility] Serum or plasma total carbon dioxide measurement (moles/volume)Ordered By: Reynaldo Trejo on 04-16-2022 CO2 [Moles/Vol] 29.6 mmol/L 22.0-30.0 [facility] Albumin [Mass/volume] in Ser um or PlasmaOrdered By: Megan Epps on 04-09-2022 Albumin [Mass/Vol] 3.6 g/dL 3.2-5.5 [facility] Basophils Auto (Bld) [#/Vol] Ordered By: Megan Epps on 04-09-2022 Basophils (Bld) [#/Vol] 0.1 10*3/uL 0.0-0.2 [facility] Basophils/100 WBC Auto (Bld) Ordered By: Megan Epps on 04-09-2022 Basophils/100 WBC (Bld) 0.8 % . [facility] Blood hemoglobin measurement (mass/volume)Ordered By: Megan Epps on 04-09-2022 Hemoglobin (Bld) [Mass/Vol] 12.8 g/dL 11.8-15.4 [facility] Blood leukocytes automated c ount (number/volume)Ordered By: Megan Epps on 04-09-2022 WBC (Bld) [#/Vol] 9.5 10*3/uL 4.5-11.0 [facility] CT biopsyOrdered By: Megan Valdivia on 04-09-2022 Transferrin [Mass/Vol] 242 mg/dL 180-380 [facility] Creatinine and Glomerular fi ltration rate.predicted panel (S/P/Bld)Ordered By: Megan Epps on 04-09-2022 Creatinine [Mass/Vol] 1.06 mg/dL 0.44-1.03 [facility] Eosinophils Auto (Bld) [#/Vo l]Ordered By: Megan Epps on 04-09-2022 Eosinophils (Bld) [#/Vol] 0.5 10*3/uL 0.0-0.45 [facility] Eosinophils/100 WBC Auto (Bl d)Ordered By: Megan Epps on 04-09-2022 Eosinophils/100 WBC (Bld) 5.5 % . [facility] Erythrocyte distribution wid th Auto (RBC) [Ratio]Ordered By: Megan Epps on 04-09-2022 Erythrocyte distribution width (RBC) [Ratio] 14.6 % 11.9-15.3 [facility] Estimated glomerular filtrat ion rate (GFR) non- AmericanOrdered By: Megan Epps on 04-09-2022 GFR/1.73 sq M.predicted among non-blacks MDRD (S/P/Bld) [Vol rate/Area] 52 mL/Min [facility] Ferritin [Mass/volume] in Se rum or PlasmaOrdered By: Megan Epps on 04-09-2022 Ferritin [Mass/Vol] 383.1 ng/mL 11-306.8 [facility] Folate [Mass/volume] in Seru m or PlasmaOrdered By: Megan Epps on 04-09-2022 Folate [Mass/Vol] ng/mL >5.9 [facility] Comment on above: Folate reference ran ge: >5.9 ng/ml The WHO technical consultation on folate and vitamin b12 deficiencies has determined that folate concentrations less than 4 ng/ml are considered deficient. Globulin Calc (S) [Mass/Vol] Ordered By: Megan Epps on 04-09-2022 Globulin (S) [Mass/Vol] 2.6 g/dL [facility] Hematocrit Auto (Bld) [Volum e fraction]Ordered By: Megan Epps on 04-09-2022 Hematocrit (Bld) [Volume fraction] 38.4 % 34.0-46.4 [facility] Iron [Mass/volume] in Serum or PlasmaOrdered By: Megan Epps on 04-09-2022 Iron [Mass/Vol] 41 ug/dL 40-150 [facility] Iron binding capacity [Mass/ volume] in Serum or PlasmaOrdered By: Megan Epps on 04-09-2022 Iron binding capacity [Mass/Vol] 339 ug/dL 255-450 [facility] Iron saturation [Mass Fracti on] in Serum or PlasmaOrdered By: Megan Epps on 04-09-2022 Iron saturation [Mass fraction] 12.0 % 20-50 [facility] Laboratory - Chemistry and C hemistry - challengeOrdered By: Megan Epps on 04-09-2022 Cobalamin (Vitamin B12) [Mass/Vol] 459 pg/mL 180-914 [facility] Laboratory - Hematology and Cell countsOrdered By: Megan Epps on 04-09-2022 Nucleated RBC/100 WBC (Bld) [Ratio] 0.0 % 0-0.5 [facility] Lymphocytes Auto (Bld) [#/Vo l]Ordered By: Megan Epps on 04-09-2022 Lymphocytes (Bld) [#/Vol] 2.1 10*3/uL 1.00-4.8 [facility] Lymphocytes/100 WBC Auto (Bl d)Ordered By: Megan Epps on 04-09-2022 Lymphocytes/100 WBC (Bld) 21.7 % . [facility] [facility] MCH Auto (RBC) [Entitic mass ]Ordered By: Megan Epps on 04-09-2022 MCH (RBC) [Entitic mass] 29.1 pg 24.7-34.3 [facility] MCHC Auto (RBC) [Mass/Vol]Or dered By: Megan Epps on 04-09-2022 MCHC (RBC) [Mass/Vol] 33.3 g/dL 32.0-35.0 [facility] MCV Auto (RBC) [Entitic vol] Ordered By: Megan Epps on 04-09-2022 MCV (RBC) [Entitic vol] 87.3 fL 80-100 [facility] Monocytes Auto (Bld) [#/Vol] Ordered By: Megan Epps on 04-09-2022 Monocytes (Bld) [#/Vol] 0.7 10*3/uL 0.0-0.8 [facility] Monocytes/100 WBC Auto (Bld) Ordered By: Megan Epps on 04-09-2022 Monocytes/100 WBC (Bld) 7.2 % . [facility] Neutrophils Auto (Bld) [#/Vo l]Ordered By: Megan Epps on 04-09-2022 Neutrophils (Bld) [#/Vol] 6.2 10*3/uL 1.8-7.7 [facility] Neutrophils/100 WBC Auto (Bl d)Ordered By: Megan Epps on 04-09-2022 Neutrophils/100 WBC (Bld) 64.8 % . [facility] No Panel InformationOrdered By: Megan Epps on 04-09-2022 Estimated GFR () > 60 mL/Min [facility] Comment on above: GFR estimated refere nce range: According to KDOQI guidelines, <60 ml/min/1.73m2 is sufficient to diagnose a patient with chronic kidney disease. Pharmacy Creatinine Clearance (Chem 65.00 [facility] Platelet mean volume Auto (B ld) [Entitic vol]Ordered By: Megan Epps on 04-09-2022 Platelet mean volume (Bld) [Entitic vol] 8.4 fL 6.3-10.7 [facility] Platelets Auto (Bld) [#/Vol] Ordered By: Megan Epps on 04-09-2022 Platelets (Bld) [#/Vol] 249 10*3/uL 150-450 [facility] Protein [Mass/volume] in Ser um or PlasmaOrdered By: Megan Epps on 04-09-2022 Protein [Mass/Vol] 6.2 g/dL 6.1-7.9 [facility] RBC Auto (Bld) [#/Vol]Ordere d By: Megan Epps on 04-09-2022 RBC (Bld) [#/Vol] 4.40 10*6/uL 3.60-5.00 [facility] Serum or plasma alanine victoria otransferase measurement without P-5'-P (enzymatic activiOrdered By: Megan Epps on 04-09-2022 ALT No additional P-5'-P [Catalytic activity/Vol] 21 U/L 10-60 [facility] Serum or plasma albumin/glob ulin mass ratioOrdered By: Megan Supriya on 04-09-2022 Albumin/Globulin [Mass ratio] 1.4 {ratio} [facility] Serum or plasma alkaline adams sphatase measurement (enzymatic activity/volume)Ordered By: Megan Epps on 04-09-2022 ALP [Catalytic activity/Vol] 62 U/L 32-92 [facility] Serum or plasma aspartate am inotransferase measurement (enzymatic activity/volume)Ordered By: Megan Epps on 04-09-2022 AST [Catalytic activity/Vol] 21 U/L 10-42 [facility] Serum or plasma calcium darrell urement (mass/volume)Ordered By: Megan Epps on 04-09-2022 Calcium [Mass/Vol] 9.2 mg/dL 8.2-10.2 [facility] Serum or plasma chloride jose surement (moles/volume)Ordered By: Megan Epps on 04-09-2022 Chloride [Moles/Vol] 101 mmol/L 95-114 [facility] Serum or plasma glucose darrell urement (mass/volume)Ordered By: Megan Supriya on 04-09-2022 Glucose [Mass/Vol] 111 mg/dL 70-100 [facility] Comment on above: ADA recommended refe rence range Random Glucose Reference Range is dependent on time and content of last meal. Glucose of more than 200 mg/dL in a nonstressed, ambulatory subject supports the diagnosis of Diabetes Mellitus. Serum or plasma methylmalona te measurement (moles/volume)Ordered By: Megan Epps on 04-09-2022 Methylmalonate [Moles/Vol] 291 nmol/L 0-378 [facility] Comment on above: This test was devamadoro ped and its performance characteristics determined by [facility]. It has not been cleared or approved by the Food and Drug Administration. Performed at: [address] [id number] Media Analyst: Alan Christianson MD, Phone: [phone] Serum or plasma potassium me asurement (moles/volume)Ordered By: Megan Epps on 04-09-2022 Potassium [Moles/Vol] 3.6 mmol/L 3.5-5.1 [facility] Serum or plasma sodium measu rement (moles/volume)Ordered By: Megan Supriya on 04-09-2022 Sodium [Moles/Vol] 140 mmol/L 136-146 [facility] Serum or plasma total biliru bin measurement (mass/volume)Ordered By: Megan Supriya on 04-09-2022 Bilirubin [Mass/Vol] 0.6 mg/dL 0.3-1.2 [facility] Serum or plasma total carbon dioxide measurement (moles/volume)Ordered By: Megan Supriya on 04-09-2022 CO2 [Moles/Vol] 26.6 mmol/L 22.0-30.0 [facility] Serum or plasma urea nitroge n measurement (mass/volume)Ordered By: Megan Epps on 04-09-2022 Urea nitrogen [Mass/Vol] 23 mg/dL 9-23 [facility] PTH INTACTon 04-02-2022 PTH, Intact 42 pg/mL Normal 15-65 [facility] Comment on above: Performed By: #### P THINT ####[facility] [id number] [address]Dr. Kyree Neal HEMOGRAM AND PLATELon 2021 Hematocrit (Bld) [Volume fraction] 39.1 % Normal 36.0-48.0 [facility] Comment on above: Performed By: #### H H #### [facility] [address] [address] [address] Kyree Nela Hemoglobin (Bld) [Mass/Vol] 12.4 g/dL Normal 12.0-16.0 [facility] Comment on above: Performed By: #### H H #### [facility] [address] [address] [address] Kyree Neal MCH (RBC) [Entitic mass] 28.7 pg Normal 26.7-34.0 [facility] Comment on above: Performed By: #### H H #### [facility] [address] [address] [address] Kyree Neal MCHC (RBC) [Mass/Vol] 31.7 g/dL Normal 29.9-35.2 [facility] Comment on above: Performed By: #### H H #### [facility] [address] [place] [address] Dr. Kyree Neal MCV (RBC) [Entitic vol] 90.5 fL Normal 81.0-99.0 [facility] Comment on above: Performed By: #### H H #### [facility] [address] [place] [address] Dr. Kyree Neal PLT 242 103/ul Normal 150-450 [facility] Comment on above: Performed By: #### H H #### [facility] [address] [place] [address] Dr. Kyree Neal RBC 4.32 106/ul Normal 4.20-5.40 [facility] Comment on above: Performed By: #### H H #### [facility] [address] [place] [address] Dr. Kyree Neal WBC 8.6 103/ul Normal 4.0-11.0 [facility] Comment on above: Performed By: #### H H #### [facility] [address] [place] [address] Dr. Kyree Neal PHOSPHORUSon 04-01-2022 Phosphate [Mass/Vol] 2.7 mg/dL Normal 2.6-4.7 [facility] Comment on above: Performed By: #### P HOS, BMP #### [facility] [address] [place] [address] Dr. Kyree Neal PROF CHEM 8 (BAS METB)on Anion gap [Moles/Vol] 11.0 mmol/L Normal [facility] Comment on above: Performed By: #### P HOS, BMP #### [facility] [address] [place] [address] Dr. Kyree Neal Calcium [Mass/Vol] 9.0 mg/dL Normal 8.5-10.1 [facility] Comment on above: Performed By: #### P HOS, BMP #### [facility] [address] [address] [address] Kryee Neal Chloride [Moles/Vol] 104 mmol/L Normal 98-107 [facility] Comment on above: Performed By: #### P HOS, BMP #### [facility] [address] [address] [address] Kyree Neal CO2 [Moles/Vol] 30.6 mmol/L Normal 21.0-32.0 [facility] Comment on above: Performed By: #### P HOS, BMP #### [facility] [address] [address] [address] Kyree Neal Creatinine [Mass/Vol] 1.10 mg/dL Critically high 0.55-1.02 [facility] Comment on above: Performed By: #### P HOS, BMP #### [facility] [address] [address] [address] Kyree Neal EGFR-AF CYMRO =60 Normal >=60 [facility] Comment on above: Performed By: #### P HOS, BMP #### [facility] [address] [address] [address] Kyree Neal EGFR-NON AF CYMRO 50 mL/min/1.73m2 Critically low >=60 [facility] Comment on above: Performed By: #### P HOS, BMP #### [facility] [address] [address] [address] Kyree Neal Glucose [Mass/Vol] 93 mg/dL Normal 74-106 [facility] Comment on above: Performed By: #### P HOS, BMP #### [facility] [address] [address] [address] Kyree Neal Potassium [Moles/Vol] 3.6 mmol/L Normal 3.5-5.1 [facility] Comment on above: Performed By: #### P HOS, BMP #### [facility] [address] [address] [address] Kyree Nela Sodium [Moles/Vol] 142 mmol/L Normal 136-145 [facility] Comment on above: Performed By: #### P HOS, BMP #### [facility] [address] [place] [address] Dr. Kyree Neal Urea nitrogen [Mass/Vol] 20.0 mg/dL Critically high 7.0-18.0 [facility] Comment on above: Performed By: #### P HOS, BMP #### [facility] [address] [place] [address] Dr. Kyree Neal Urea nitrogen/Creatinine [Mass ratio] 18.2 mg/mg Normal [facility] Comment on above: Performed By: #### P HOS, BMP #### [facility] [address] [place] [address] Dr. Kyree Neal VITAMIN D 25 OHon 04-01-2022 VIT D 25-OH 45.4 ng/mL Normal [facility] Comment on above: Performed By: #### S EDR #### [facility] [address] [place] [address] Dr. Kyree Neal VIT D RANGES SEE BELOW Normal [facility] Comment on above: Result Comment: <20 ng/mL Vit D deficient 20 - <30 ng/mL Vit D insufficient 30 - 100 ng/mL Vit D sufficient >100 ng/mL Potential Toxicity Performed By: #### S EDR #### [facility] [address] [place] [address] Dr. Kyree Neal A1C HEMOGLOBINon 02-05-2022 HbA1c (Bld) [Mass fraction] 6.1 % [employer] Other HbA1c (Bld) [Mass fraction]o n 02-05-2022 A1C HEMOGLOBIN [facility] [employer] Other Office Visit (Cardiology)on 12-18-2021 Follow-up visit [...] Hives; It (more content not included)... Normal [employer] A1C HEMOGLOBINon 11-05-2021 HbA1c (Bld) [Mass fraction] 5.9 % [employer] Other HbA1c (Bld) [Mass fraction]o n 11-05-2021 A1C HEMOGLOBIN [employer] Other Office Visit (Cardiology)on 10-01-2021 Follow-up visit Diagnoses/Problems Assessed Hypotension (458.9) (I95.9) quiescent on midodrine Edema (782.3) (R60.9) For the most part seems chronic No offending medications Intolerant to compression stockings Diet-controlled diabetes mellitus (250.00) (E11.9) CKD (chronic kidney disease), stage III (585.3) (N18.30) Follows routinely [facility] Nephrology - manage diuretic Morbid obesity with [...] HCl - (more content not included)... Normal [employer] A1C HEMOGLOBINon 07-25-2021 HbA1c (Bld) [Mass fraction] 6.0 % [employer] Other HbA1c (Bld) [Mass fraction]o n 07-25-2021 A1C HEMOGLOBIN [employer] Other A1C HEMOGLOBINon 07-11-2021 HbA1c (Bld) [Mass fraction] 6.0 % [employer] Other HbA1c (Bld) [Mass fraction]o n 07-11-2021 A1C HEMOGLOBIN [employer] Other MRI L-Ext Joint w/o Contrast RTon [...] intact.Limited examination due to the right knee arthroplasty.[facility] thanks you for the opportunity to care for your patient. Workstation ID: [id number] - [id number] FINAL REPORT Dictated By: Lance Elise MD 08/03/2018 14:10Assigned Physician: Lance Elise MD and Electronically Signed By: Lance Elise MD 08/03/2018 14:12Transcribed by: BARRON 08/03/2018 14:10Technologist: LONNIE Perez [facility] CNOVon 05-27-2018 CNOV Office Visit (CARDFT) MILLIE GRAHAM ([id number]) 1955 FDate Time Provider Department05/27/18 12:30 PM ITALO ANN During your visit today, we recorded the following information about you: Pulse Respiration Blood pressure Weight 64/minute 16/minute 143/68 120.2 kg Height 1.6 Cece Ann MD 05/27/2018 1:19 PM [facility] Department of Cardiovascular MedicineOUTPATIENT VISIT DATE 05/27/18OUTPATIENT VISIT TYPEESTABLISHEDPRIMARY CARE PHYSICIAN:Peter Sosa, DO[address] LisandroNov[facility] [address]Kwvzx: [phone]: [phone] COMPLAINT:Patient presents with:Follow UpHISTORY OF PRESENT ILLNESS:Renuka [...] under the care of Dr. Schilling of [facility]. Danika had multiple procedures performed which are [...] year. She does statethat she was taking tktf-ymr-ueujkwt diet pills until recently. They were notworking. [...] She may sit in her chair for [id number] hours every day. She states that it's [...] (coronary artery disease)- CHF (congestive heart failure) ([facility])- DM (diabetes mellitus) ([facility])- Fibromyalgia- GERD (gastroesophageal reflux disease)- HTN (hypertension)- OA (osteoarthritis) of knee- JEREMY (obstructive sleep apnea)- Pulmonary HTN ([facility])- Restrictive lung disease- Vitamin D deficiencyPAST SURGICAL [...] - a 2-D echocardiogram performed at the [facility] normal left ventricular systolic function with an ejection fraction of60%. There was no significant valvular disease identified. There was nocomment on diastolic function.02/24/2017 - a 2-D echocardiogram performed at the [facility] low normal to mildly reduced left ventricular systolic function withan ejection fraction of 45-50%. There was minimal concentric left ventricularhypertrophy present. There was evidence of grade 1 diastolic dysfunction.There was mild mitral regurgitation. No estimate a right ventricular systolicpressure was possible on this study.Stress Evaluations:02/26/2016 - a Lexiscan nuclear stress evaluation at the [facility] a left ventricular ejection fraction of 50% with abnormal septal wallmotion. There was a small defect involving the inferior oh apical wall whichwas fixed. This was felt to likely represent artifact. There was no otherevidence of Lexiscan stress-induced ischemia.02/24/2017 - [facility] function with an ejectionfraction of 48%. There was a moderate sized anterior septal defect which waspartially reversible noted. This was read as suggestive of possiblestress-induced ischemia.Cardiac Catheterizations: 004 - [facility]. There was moderately decreased leftventricular systolic function noted with an ejection fraction of 30%.Moderately elevated right heart pressures and a normal cardiac index werenoted. The patient was continued on Demadex, Diovan, around oh lactone, Coreg3.125 mg twice a day.06/12/2005 - a right and left heart catheterization was performed at [facility] revealing nonobstructive coronary artery disease,left ventricular ejection fraction of 50%, moderate pulmonary hypertension,severely elevated left ventricular end-diastolic pressure, normal cardiacoutput and normal cardiac index. The patient was started on Lasix 40 mg twicea day.02/14/2008 - a right and left heart catheterization was performed at [facility] revealing mild 3 vessel coronary arterydisease, mildly reduced left ventricular systolic function (no ejectionfraction noted on the report), mild mitral regurgitation, mildly elevated leftventricular end-diastolic pressure, mild pulmonary hypertension and a normalcardiac index. No changes were made to the medical regimen.02/28/2013 - a right and left heart catheterization performed at [facility] reveals mild 3 vessel coronary artery disease, mild pulmonaryhypertension, preserved cardiac index and no evidence of cardiac shunt. Thisstudy was performed due to an abnormal stress test and a suspected patentforamen ovale versus ASD on echocardiogram. Medical therapy was recommendedbut not detailed in the report.03/05/2017 - a right and left heart catheterization was performed at [facility] revealing nonobstructive coronary artery disease, mildlyreduced left [...] provided to the requesting physician by [facility] or to the requesting physician via U.S. Mail.This document was generated utilizing [employer] dictation. I have reviewed andverified that the contents of the document are accurate with the exception ofminor grammatical, spelling and punctuation errors.CONTACT INFORMATION:Thank you for allowing us to participate in the care of this very pleasantpatient. Please free to contact us if we can be of any further assistance.Italo Ann MD, [facility]oddIs[facility] Hospitalment [facility] Cardiovascular MedicineB[facility] [address]Psxljc: [phone] Referring Provider: PETER SOSA [[id number]]Allergies As of Date: 05/27/2018 Noted Allergy ReactionLATEX [...] Status:Closed by LUC ANN MD on 05/27/18 [facility] PROGRESSon 05-27-2018 Protein mass conc HNO ID: [id number]: Italo Valladares HersheyService: (none)Author Type: PhysicianType: Progress NotesFiled: 05/27/2018 1:19 PMNote Text:[facility] Department of Cardiovascular MedicineOUTPATIENT VISIT DATE 05/27/18OUTPATIENT VISIT TYPEESTABLISHEDPRIMARY CARE PHYSICIAN:Peter Sosa, DO[address] [place] [address]Kgdtj: [phone]: [phone] COMPLAINT:Patient presents with:Follow UpHISTORY OF PRESENT ILLNESS:Renuka [...] and under the care of Dr. Schilling [facility]. She has had multiple procedures performed which [...] year. She does state that shewas taking bsci-hrf-bjrqefg diet pills until recently. They were notworking. [...] review of the testing it seems theprevious tailing hand was going by the guidelines with continuedreasonable [...] (coronary artery disease)- CHF (congestive heart failure) ([facility])- DM (diabetes mellitus) ([facility])- Fibromyalgia- GERD (gastroesophageal reflux disease)- HTN (hypertension)- OA (osteoarthritis) of knee- JEREMY (obstructive sleep apnea)- Pulmonary HTN ([facility])- Restrictive lung disease- Vitamin D deficiencyPAST SURGICAL [...] [facility] function with an ejectionfraction of 60%. There was no significant valvular disease identified.There was no comment on diastolic function.02/24/2017 - [facility] normal to mildly reduced left ventricular systolic functionwith an ejection fraction of 45-50%. There was minimal concentric leftventricular hypertrophy present. There was evidence of grade 1 diastolicdysfunction. There was mild mitral regurgitation. No estimate a rightventricular systolic pressure was possible on this study.Stress Evaluations:02/26/2016 - a Lexiscan nuclear stress evaluation at the [facility] revealed a left ventricular ejection fraction of 50% with abnormalseptal wall motion. There was a small defect involving the inferior ohapical wall which was fixed. This was felt to likely represent artifact.There was no other evidence of Lexiscan stress-induced ischemia.02/24/2017 - a Lexiscan nuclear stress evaluation at the [facility] revealed mildly diminished left ventricular systolic function withan ejection fraction of 48%. There was a moderate sized anterior septaldefect which was partially reversible noted. This was read as suggestiveof possible stress-induced ischemia.Cardiac Catheterizations: 004 - a cardiac catheterization performed at the [facility] revealed normal coronary arteries. There was moderately decreasedleft ventricular systolic function noted with an ejection fraction of 30%. Moderately elevated right heart pressures and a normal cardiac index werenoted. The patient was continued on Demadex, Diovan, around oh lactone,Coreg 3.125 mg twice a day.06/12/2005 - a right and left heart catheterization was performed at [facility] revealing nonobstructive coronary arterydisease, left ventricular ejection fraction of 50%, moderate pulmonaryhypertension, severely elevated left ventricular end-diastolic pressure,normal cardiac output and normal cardiac index. The patient was startedon Lasix 40 mg twice a day.02/14/2008 - a right and left heart catheterization was performed at [facility] revealing mild 3 vessel coronaryartery disease, mildly reduced left ventricular systolic function (noejection fraction noted on the report), mild mitral regurgitation, mildlyelevated left ventricular end-diastolic pressure, mild pulmonaryhypertension and a normal cardiac index. No changes were made to themedical regimen.02/28/2013 - a right and left heart catheterization performed at [facility] reveals mild 3 vessel coronary artery disease, mildpulmonary hypertension, preserved cardiac index and no evidence of cardiacshunt. This study was performed due to an abnormal stress test and asuspected patent foramen ovale versus ASD on echocardiogram. Medicaltherapy was recommended but not detailed in the report.03/05/2017 - a right and left heart catheterization was performed at [facility] revealing nonobstructive coronary artery disease,mildly reduced left [...] provided to the requesting physician by [facility] or to the requesting physician via U.S. Mail.This document was generated utilizing PubMatication. I have reviewedand verified that the contents of the document are accurate with theexception of minor grammatical, spelling and punctuation errors.CONTACT INFORMATION:Thank you for allowing us to participate in the care of this very pleasantpatient. Please free to contact us if we can be of any furtherassistance.Maria A Ann MD, [facility] DoddIs[facility] Hospitalment of Cardiovascular MedicineMercy Health [facility] Centerrt [facility] Institute[address], [place] [address]Zakrfy: [phone] Normal [facility] CNOVon 04-08-2018 CNOV Office Visit (CARDFT) GLADYSMILLIE MARK ANTHONY ([id number]) 1955 [facility] Time Provider Department04/08/18 12:30 PM ITALO ANN During your visit today, we recorded the following information about you: Pulse Respiration Blood pressure Weight 75/minute 18/minute 163/70 117 kg Height 1.6 Cece Ann MD 04/08/2018 12:59 PM [facility] Department of Cardiovascular MedicineOUTPATIENT VISIT DATE 04/08/18OUTPATIENT VISIT TYPEESTABLISHEDPRIMARY CARE PHYSICIAN:Peter Sosa DO[address] [facility] [address]Tdofy: [phone]: [phone] COMPLAINT:Patient presents with:Follow UpHISTORY OF PRESENT ILLNESS:Renuka [...] under the care of Dr. Schilling of [facility]. Danika had multiple procedures performed which are [...] year. She does statethat she was taking zqpx-ucv-iacqljp diet pills until recently. They were notworking. The patient has chronic complaints of dyspnea and dyspnea onexertion. She has been treated with lisinopril for her blood pressure. TheLasix was used to try to decrease her edema but was not successful. Thepatient and her son seem frustrated [facility] By my review of the [...] She may sit in her chair for -67 hours every day. She states that it's [...] (coronary artery disease)- CHF (congestive heart failure) ([facility])- DM (diabetes mellitus) ([facility])- Fibromyalgia- GERD (gastroesophageal reflux disease)- HTN (hypertension)- [...] - [facility] with [facility] ejection fraction of60%. There was no significant valvular disease identified. There was nocomment on diastolic function.02/24/2017 - [facility] normal to mildly reduced left ventricular systolic function withan ejection fraction of 45-50%. There was minimal concentric left ventricularhypertrophy present. There was evidence of grade 1 diastolic dysfunction.There was mild mitral regurgitation. No estimate a right ventricular systolicpressure was possible on this study.Stress Evaluations:02/26/2016 - [facility] Lexiscan [facility] fraction of 50% with abnormal septal wallmotion. There was a small defect involving the inferior oh apical wall whichwas fixed. This was felt to likely represent artifact. There was no otherevidence of Lexiscan stress-induced ischemia.02/24/2017 - [facility] Lexiscan [facility] systolic function with an ejectionfraction of 48%. There was a moderate sized anterior septal defect which waspartially reversible noted. This was read as suggestive of possiblestress-induced ischemia.Cardiac Catheterizations: 004 - [facility]. There was moderately decreased leftventricular systolic function noted with an ejection fraction of 30%.Moderately elevated right heart pressures and a normal cardiac index werenoted. The patient was continued on Demadex, Diovan, around oh lactone, Coreg3.125 mg twice a day.06/12/2005 - a right and left heart catheterization was performed at [facility] revealing nonobstructive coronary artery disease,left ventricular ejection fraction of 50%, moderate pulmonary hypertension,severely elevated left ventricular end-diastolic pressure, normal cardiacoutput and normal cardiac index. The patient was started on Lasix 40 mg twicea day.02/14/2008 - a right and left heart catheterization was performed at [facility] revealing mild 3 vessel coronary arterydisease, mildly reduced left ventricular systolic function (no ejectionfraction noted on the report), mild mitral regurgitation, mildly elevated leftventricular end-diastolic pressure, mild pulmonary hypertension and a normalcardiac index. No changes were made to the medical regimen.02/28/2013 - a right and left heart catheterization performed at [facility] reveals mild 3 vessel coronary artery disease, mild pulmonaryhypertension, preserved cardiac index and no evidence of cardiac shunt. Thisstudy was performed due to an abnormal stress test and a suspected patentforamen ovale versus ASD on echocardiogram. Medical therapy was recommendedbut not detailed in the report.03/05/2017 - a right and left heart catheterization was performed at [facility] revealing nonobstructive coronary artery disease, mildlyreduced left [...] help her symptoms. I have suggested the [employer] diet. I havealso discussed with her a [...] provided to the requesting physician by way [facility] or to the requesting physician via U.S. Mail.This document was generated utilizing Pickie dictation. I have reviewed andverified that the contents of the document are accurate with the exception ofminor grammatical, spelling and punctuation errors.CONTACT INFORMATION:Thank you for allowing us to participate in the care of this very pleasantpatient. Please free to contact us if we can be of any further assistance.Italo Ann MD, FACCRlourdes hospital and Mechelle DoddIsland Hospitalment of Cardiovascular MedicineMercy Health Springfield Regional Medical Centerrt and Vascular InstituteGregory Ville [address] [place], [place] [address]Ksklfr: [phone] Referring Provider: PETER SOSA [[id number]]Allergies As of Date: 04/08/2018 Noted Allergy ReactionLATEX [...] 3 BASIC METABOLIC PNL [SQBMP] Order #: [id number] FUTUREPrescriptions as of 04/08/2018 Sig: LISINOPRIL 40 [...] by LUC ANN MD on 04/08/18 Normal [facility] PROGRESSon 04-08-2018 Protein mass conc HNO ID: [id number]: Italo Montezervice: (none)Author Type: PhysicianType: Progress NotesFiled: 04/08/2018 12:59 PMNote Text:Heart and Vascular InstituteSeymour and [facility] Department of Cardiovascular MedicineOUTPATIENT VISIT DATE 04/08/18OUTPATIENT VISIT TYPEESTABLISHEDPRIMARY CARE PHYSICIAN:Peter Sosa DO[address] [place] [address]Cbiqg: [phone]: [phone] COMPLAINT:Patient presents with:Follow UpHISTORY OF PRESENT ILLNESS:Renuka [...] and under the care of Dr. Schilling [facility]. She has had multiple procedures performed which [...] year. She does state that shewas taking rufo-qdp-aafxdse diet pills until recently. They were notworking. [...] review of the testing it seems theprevious tailing hand was going by the guidelines with continuedreasonable [...] (coronary artery disease)- CHF (congestive heart failure) ([facility])- DM (diabetes mellitus) ([facility])- Fibromyalgia- GERD (gastroesophageal reflux disease)- HTN (hypertension)- [...] - a [facility] normal to mildly reduced left ventricular systolic functionwith an ejection fraction of 45-50%. There was minimal concentric leftventricular hypertrophy present. There was evidence of grade 1 diastolicdysfunction. There was mild mitral regurgitation. No estimate a rightventricular systolic pressure was possible on this study.Stress Evaluations:02/26/2016 - a Lexiscan nuclear stress evaluation at the [facility] revealed a left ventricular ejection fraction of 50% with abnormalseptal wall motion. There was a small defect involving the inferior ohapical wall which was fixed. This was felt to likely represent artifact.There was no other evidence of Lexiscan stress-induced ischemia.02/24/2017 - a Lexiscan nuclear stress evaluation at the [facility] revealed mildly diminished left ventricular systolic function withan ejection fraction of 48%. There was a moderate sized anterior septaldefect which was partially reversible noted. This was read as suggestiveof possible stress-induced ischemia.Cardiac Catheterizations: 004 - a cardiac catheterization performed at the [facility] revealed normal coronary arteries. There was moderately decreasedleft ventricular systolic function noted with an ejection fraction of 30%. Moderately elevated right heart pressures and a normal cardiac index werenoted. The patient was continued on Demadex, Diovan, around oh lactone,Coreg 3.125 mg twice a day.06/12/2005 - a right and left heart catheterization was performed at [facility] revealing nonobstructive coronary arterydisease, left ventricular ejection fraction of 50%, moderate pulmonaryhypertension, severely elevated left ventricular end-diastolic pressure,normal cardiac output and normal cardiac index. The patient was startedon Lasix 40 mg twice a day.02/14/2008 - a right and left heart catheterization was performed at [facility] revealing mild 3 vessel coronaryartery disease, mildly reduced left ventricular systolic function (noejection fraction noted on the report), mild mitral regurgitation, mildlyelevated left ventricular end-diastolic pressure, mild pulmonaryhypertension and a normal cardiac index. No changes were made to [facility] regimen.02/28/2013 - a right and left heart catheterization performed at [facility] reveals mild 3 vessel coronary artery disease, mildpulmonary hypertension, preserved cardiac index and no evidence of cardiacshunt. This study was performed due to an abnormal stress test and asuspected patent foramen ovale versus ASD on echocardiogram. Medicaltherapy was recommended but not detailed in the report.03/05/2017 - a right and left heart catheterization was performed at [facility] revealing nonobstructive coronary artery disease,mildly reduced left [...] diagnosed by multiplecardiac catheterizations in the past.6. JEREYM (obstructive sleep apnea) - ICD9: 327.23, ICD10: [...] help her symptoms. I have suggested the [employer] diet. Keira also discussed with her a [...] provided to the requesting physician by way [facility] or to the requesting physician via U.S. Mail.This document was generated utilizing [employer] dictation. I have reviewedand verified that the contents of the document are accurate with theexception of minor grammatical, spelling and punctuation errors.CONTACT INFORMATION:Thank you for allowing us to participate in the care of this very pleasantpatient. Please free to contact us if we can be of any furtherassistance.Maria A Ann MD, [facility] and Mechelle DoddIsland Hospitalment of Cardiovascular MedicineMercy Health Springfield Regional Medical Centerrt and Vascular Institute[address] [address]Borsfd: [phone] [facility] CNOVon 01-04-2018 CNOV Office Visit (CARDFT) MILLIE GRAHAM ([id number]) 1955 [facility] Time Provider Department01/04/18 12:30 PM ITALO ANN During your visit today, we recorded the following information about you: Pulse Respiration Blood pressure Weight 57/minute 18/minute 165/72 117.9 kg Height 1.6 Cece Ann MD 01/04/2018 12:56 PM [facility] and Mechelle Dodd Department of Cardiovascular MedicineOUTPATIENT VISIT DATE 01/04/18OUTPATIENT VISIT TYPEESTABLISHEDPRIMARY CARE PHYSICIAN:Peter Sosa DO[address] [place] [address]Nqdkv: [phone]: [phone] COMPLAINT:Patient presents with:Follow UpHISTORY OF PRESENT ILLNESS:Renuka [...] under the care of Dr. Schilling [facility]. Danika had multiple procedures performed which are [...] year. She does statethat she was taking kedl-vdx-qqbojic diet pills until recently. They were notworking. [...] She may sit in her chair for euiicpe95-92 hours every day. She states that it's [...] 117.9 kg (260lb) SpO2 100% BMI 46.06 kg/n5Wqcwtyf: Well appearing, in no acute distress.Eyes: Conjunctiva [...] - a 2-D echocardiogram performed at the [facility] normal left ventricular systolic function with an ejection fraction of60%. There was no significant valvular disease identified. There was nocomment on diastolic function.02/24/2017 - a 2-D echocardiogram performed at the [facility] low normal to mildly reduced left ventricular systolic function withan ejection fraction of 45-50%. There was minimal concentric left ventricularhypertrophy present. There was evidence of grade 1 diastolic dysfunction.There was mild mitral regurgitation. No estimate a right ventricular systolicpressure was possible on this study.Stress Evaluations:02/26/2016 - [facility]% with abnormal septal wallmotion. There was a small defect involving the inferior oh apical wall whichwas fixed. This was felt to likely represent artifact. There was no otherevidence of Lexiscan stress-induced ischemia.02/24/2017 - [facility] systolic function with an ejectionfraction of 48%. There was a moderate sized anterior septal defect which waspartially reversible noted. This was read as suggestive of possiblestress-induced ischemia.Cardiac Catheterizations: 004 - [facility]. There was moderately decreased leftventricular systolic function noted with an ejection fraction of 30%.Moderately elevated right heart pressures and a normal cardiac index werenoted. The patient was continued on Demadex, Diovan, around oh lactone, Coreg3.125 mg twice a day.06/12/2005 - a right and left heart catheterization was performed at [facility] revealing nonobstructive coronary artery disease,left ventricular ejection fraction of 50%, moderate pulmonary hypertension,severely elevated left ventricular end-diastolic pressure, normal cardiacoutput and normal cardiac index. The patient was started on Lasix 40 mg twicea day.02/14/2008 - a right and left heart catheterization was performed at [facility] revealing mild 3 vessel coronary arterydisease, mildly reduced left ventricular systolic function (no ejectionfraction noted on the report), mild mitral regurgitation, mildly elevated leftventricular end-diastolic pressure, mild pulmonary hypertension and a normalcardiac index. No changes were made to the medical regimen.02/28/2013 - a right and left heart catheterization performed at [facility] reveals mild 3 vessel coronary artery disease, [...] therapy, gastroesophageal reflux disease and obesity.No significant interchange agent the past 6 months. Patient is very [...] help her symptoms. I have suggested the [employer] diet. I havealso discussed with her a [...] provided to the requesting physician by way [facility]ex[facility] medical record or to the requesting physician via U.S. Mail.This document was generated utilizing [employer] dictation. I have reviewed andverified that the contents of the document are accurate with the exception ofminor grammatical, spelling and punctuation errors.CONTACT INFORMATION:Thank you for allowing us to participate in the care of this very pleasantpatient. Please free to contact us if we can be of any further assistance.Italo Ann MD, FACCRobert and Mechelle DoddAzpartment of Cardiovascular MedicineMercy Health Springfield Regional Medical Centerrt and Vascular InstituteAultman Alliance Community Hospital[address], [place] [address]Qeaxlf: [phone] Referring Provider: PETER SOSA [[id number]]Allergies As of Date: 01/04/2018 Noted Allergy ReactionLATEX [...] Take by mouth. Disc: Erroneous entryEncounter Number: [id number] Status:Closed by LUC ANN MD on 01/04/18 [facility] PROGRESSon 01-04-2018 Protein mass conc HNO ID: [id number]: Italo Montezervice: (none)Author Type: PhysicianType: Progress NotesFiled: 01/04/2018 12:56 PMNote Text:Heart and Vascular [facility] Department of Cardiovascular MedicineOUTPATIENT VISIT DATE 01/04/18OUTPATIENT VISIT TYPEESTABLFORMERLY [facility]PITALPRUNC MEDICAL CENTERRY CARE PHYSICIAN:Peter Sosa DO[address] [place] [address]Okkbr: [phone]: [phone] COMPLAINT:Patient presents with:Follow UpHISTORY OF PRESENT ILLNESS:Renuka [...] and under the care of Dr. Schilling [facility]. She has had multiple procedures performed which [...] year. She does state that shewas taking gymx-pse-pyrayqk diet pills until recently. They were notworking. [...] review of the testing it seems theprevious tailing hand was going by the guidelines with continuedreasonable [...] (coronary artery disease)- CHF (congestive heart failure) ([facility])- DM (diabetes mellitus) ([facility])- Fibromyalgia- GERD (gastroesophageal [...] 117.9 kg (260lb) SpO2 100% BMI 46.06 kg/c4Cfffaun: Well appearing, in no acute distress.Eyes: Conjunctiva [...] - a [facility] function with an ejectionfraction of 60%. There was no significant valvular disease identified.There was no comment on diastolic function.02/24/2017 - a 2[facility] low normal to mildly reduced left ventricular systolic functionwith an ejection fraction of 45-50%. There was minimal concentric leftventricular hypertrophy present. There was evidence of grade 1 diastolicdysfunction. There was mild mitral regurgitation. No estimate a rightventricular systolic pressure was possible on this study.Stress Evaluations:02/26/2016 - a Lexiscan nuclear stress evaluation at the [facility] revealed a left ventricular ejection fraction of 50% with abnormalseptal wall motion. There was a small defect involving the inferior ohapical wall which was fixed. This was felt to likely represent artifact.There was no other evidence of Lexiscan stress-induced ischemia.02/24/2017 - a Lexiscan nuclear stress evaluation at the [facility] revealed mildly diminished left ventricular systolic function withan ejection fraction of 48%. There was a moderate sized anterior septaldefect which was partially reversible noted. This was read as suggestiveof possible stress-induced ischemia.Cardiac Catheterizations: 004 - a cardiac catheterization performed at the [facility] revealed normal coronary arteries. There was moderately decreasedleft ventricular systolic function noted with an ejection fraction of 30%. Moderately elevated right heart pressures and a normal cardiac index werenoted. The patient was continued on Demadex, Diovan, around oh lactone,Coreg 3.125 mg twice a day.06/12/2005 - a right and left heart catheterization was performed at [facility] revealing nonobstructive coronary arterydisease, left ventricular ejection fraction of 50%, moderate pulmonaryhypertension, severely elevated left ventricular end-diastolic pressure,normal cardiac output and normal cardiac index. The patient was startedon Lasix 40 mg twice a day.02/14/2008 - a right and left heart catheterization was performed at [facility] revealing mild 3 vessel coronaryartery disease, mildly reduced left ventricular systolic function (noejection fraction noted on the report), mild mitral regurgitation, mildlyelevated left ventricular end-diastolic pressure, mild pulmonaryhypertension and a normal cardiac index. No changes were made to themedical regimen.02/28/2013 - a right and left heart catheterization performed at [facility] reveals mild 3 vessel coronary artery disease, mildpulmonary hypertension, preserved cardiac index and no evidence of cardiacshunt. This study was performed due to an abnormal stress test and asuspected patent foramen ovale versus ASD on echocardiogram. Medicaltherapy was recommended but not detailed in the report.03/05/2017 - a right and left heart catheterization was performed at [facility] revealing nonobstructive coronary artery disease,mildly reduced left [...] therapy, gastroesophagealreflux disease and obesity. No significant interchange agent the past 6 months. Patient is very [...] help her symptoms. I have suggested the [employer] diet. Anasera also discussed with her a [...] provided to the requesting physician by way [facility] medical record or to the requesting physician via U.S. Mail.This document was generated utilizing [employer] dictation. I have reviewedand verified that the contents of the document are accurate with theexception of minor grammatical, spelling and punctuation errors.CONTACT INFORMATION:Thank you for allowing us to participate in the care of this very pleasantpatient. Please free to contact us if we can be of any furtherassistance.Maria A Ann MD, FACCRobert and Mechelle Manciapartment of Cardiovascular MedicineMercy Health Springfield Regional Medical Centerrt and Vascular Institute[address], [place] [address]Avgiym: [phone] Normal [facility] C-Reactive Proteinon 018 CRP mass conc 1.1 mg/dL High <1.0 [facility] Comment on above: Performed By: #### 1 988-5 ####[address] CBC with Differentialon 0 Basophils Auto #/vol (Bld) 0.10 thou/mcL Normal 0.00-0.20 [facility] Comment on above: Performed By: #### 6 9742-5 ####[address]#### [address]-2 ####[address] Basophils/100 WBC Auto (Bld) 0.9 % Normal 0.0-2.0 [facility] Comment on above: Performed By: #### 6 9742-5 ####[address]#### [address]-4 ####[address] Eosinophils Auto #/vol (Bld) 0.20 thou/mcL Normal 0.00-0.70 [facility] Comment on above: Performed By: #### 6 9742-5 ####[facility]ON[address]#### [address]-4 ####[facility], [address] [place] [address]. Eosinophils/100 WBC Auto (Bld) 3.1 % Normal 0.0-7.0 [facility] Comment on above: Performed By: #### 6 9742-5 ####[address]#### [address]-1 ####[facility], [address] [place] [address]. Erythrocyte distribution width Entitic volume (RBC) 16.3 % High 11.0-14.8 [facility] Comment on above: Performed By: #### 6 9742-5 ####[address]#### [address]-5 ####[facility], [address] [place] [address]. Hematocrit Auto Volume Fraction (Bld) 37.5 % Normal 35.0-45.0 [facility] Comment on above: Performed By: #### 6 9742-5 ####[address]#### [address]-0 ####[facility], [address] [place] [address]. Hemoglobin mass conc (Bld) 12.2 g/dL Normal 12.0-16.0 [facility] Comment on above: Performed By: #### 6 9742-5 ####[address]#### [address]-6 ####[facility], [address] [place] [address]. Lymphocytes Auto #/vol (Bld) 1.40 thou/mcL Normal 1.00-4.80 [facility] Comment on above: Performed By: #### 6 9742-5 ####[facility]#### [address]-6 ####[facility], [address] [place] [address]. Lymphocytes/100 WBC Auto (Bld) 19.5 % Low 22.0-44.0 [facility] Comment on above: Performed By: #### 6 9742-5 ####[address]#### [address]-6 ####[facility], [address] [place] [address]. MCH Auto Entitic mass (RBC) 25.2 Picograms Low 27.0-34.0 [facility] Comment on above: Performed By: #### 6 9742-5 ####[address]#### [address]-9 ####[facility], [address] [place] [address]. MCHC Auto mass conc (RBC) 32.6 g/dL Normal 32.0-36.0 [facility] Comment on above: Performed By: #### 6 9742-5 ####[address]#### [address]-2 ####[facility], [address] [place] [address]. MCV Auto Entitic volume (RBC) 77.2 fL Low 80.0-97.0 [facility] Comment on above: Performed By: #### 6 9742-5 ####[address]#### [address]-7 ####[facility], [address] [place] [address]. Monocytes Auto #/vol (Bld) 0.50 thou/mcL Normal 0.00-0.90 [facility] Comment on above: Performed By: #### 6 9742-5 ####[address]#### [address]-7 ####[facility], [address] [place] [address]. Monocytes/100 WBC Auto (Bld) 6.7 % Normal 0.0-12.0 [facility] Comment on above: Performed By: #### 6 9742-5 ####[facility]#### [address]-0 ####[facility], [address] [place] [address]. Neutrophils Auto #/vol (Bld) 5.00 thou/mcL Normal 1.80-7.70 [facility] Comment on above: Performed By: #### 6 9742-5 ####[address]#### [address]-6 ####[facility], [address] [place] [address]. Neutrophils/100 WBC Auto (Bld) 69.8 % Normal 40.0-70.0 [facility] Comment on above: Performed By: #### 6 9742-5 ####[address]#### [address]-5 ####[facility], [address] [place] [address]. Platelet mean volume Entitic volume (Bld) 8.4 FL Normal 6.2-12.1 [facility] Comment on above: Performed By: #### 6 9742-5 ####[address]#### [address]-1 ####[facility], [address] [place] [address]. Platelets Auto #/vol (Bld) 278 thou/mcL Normal 142-424 [facility] Comment on above: Performed By: #### 6 9742-5 ####[address]#### [address]-7 ####[facility], [address] [place] [address]. RBC Auto #/vol (Bld) 4.86 million/mcL Normal 3.80-5.10 [facility] Comment on above: Performed By: #### 6 9742-5 ####[facility] [address], [place]#### [address]-2 ####[facility], [address] [place], [place]. WBC Auto #/vol (Bld) 7.2 thou/mcL Normal 4.6-10.2 [facility] Comment on above: Performed By: #### 6 9742-5 ####[facility] [address], [place]#### [address]-1 ####[facility], [address] [place] [address]. Sedimentation Rate rbcon ESR Velocity (Bld) 32 mm/h High 0-20 [facility] Comment on above: Performed By: #### 6 9742-5 ####[address]#### [address]-0 ####[facility], [address] [place] [address]. XR Knee 4+ Views RTon 2017 XR [...] The RIGHT knee prostheses appear properly seated seminole bone without fracture. Relationship within normal limits. No convincing plain from evidence of an effusion. Bone density appears mildly diminished but without acute or dominant focal abnormality.Limited imaging of the LEFT knee is notable only for postoperative changes without opposed acute finding.IMPRESSION: No acute findings.[facility] thanks you for the opportunity to care for your patient. Workstation ID: [id number] - [id number] FINAL REPORT Dictated By: Peter Crain MD 12/21/2017 13:24Assigned Physician: Peter Crain MD and Electronically Signed By: Peter Crain MD 12/21/2017 13:26Transcribed by: BARRON 12/21/2017 13:24Technologist: [facility] Chris [facility] CNOVnapoleon 07-21-2017 CNOV Office Visit (CARDFT) MILLIE GRAHAM ([id number]) 1955 [place] Time Provider Gwfklaxkss71/3/17 1:00 PM ITALO ANN During your visit today, we recorded the following information about you: Pulse Respiration Blood pressure Weight 86/minute 18/minute 146/57 127 kg Height 1.6 Cece Ann MD 07/21/2017 1:57 PM [facility] InstituteRobert [facility] Department of Cardiovascular MedicineOUTPATIENT VISIT DATE 07/21/17OUTPATIENT VISIT TYPEESTABLISHEDPRIMARY CARE PHYSICIAN:MISAEL Garcia[address] [facility] [address]Wyupq: [phone]: [phone] COMPLAINT:Patient presents with:Leg EdemaShortness of BreathHISTORY OF [...] under the care of Dr. Schilling of [facility]. Shehas had multiple procedures performed which are [...] year. She does statethat she was taking wdsk-foc-upnvisj diet pills until recently. They were notworking. [...] kg (280 lb) SpO2 96% BMI 49.6 kg/n2Pdbphje: Well appearing, in no acute distress.Eyes: Conjunctiva [...] - a 2-D echocardiogram performed at the [facility] normal left ventricular systolic function with an ejection fraction of60%. There was no significant valvular disease identified. There was nocomment on diastolic function.02/24/2017 - a 2-D echocardiogram performed at the [facility] low normal to mildly reduced left ventricular systolic function withan ejection fraction of 45-50%. There was minimal concentric left ventricularhypertrophy present. There was evidence of grade 1 diastolic dysfunction.There was mild mitral regurgitation. No estimate a right ventricular systolicpressure was possible on this study.Stress Evaluations:02/26/2016 - a Lexiscan nuclear stress evaluation at the [facility] a left ventricular ejection fraction of 50% with abnormal septal wallmotion. There was a small defect involving the inferior oh apical wall whichwas fixed. This was felt to likely represent artifact. There was no otherevidence of Lexiscan stress-induced ischemia.02/24/2017 - [facility] function with an ejectionfraction of 48%. There was a moderate sized anterior septal defect which waspartially reversible noted. This was read as suggestive of possiblestress-induced ischemia.Cardiac Catheterizations: 004 - [facility]. There was moderately decreased leftventricular systolic function noted with an ejection fraction of 30%.Moderately elevated right heart pressures and a normal cardiac index werenoted. The patient was continued on Demadex, Diovan, around oh lactone, Coreg3.125 mg twice a day.06/12/2005 - a right and left heart catheterization was performed at [facility] revealing nonobstructive coronary artery disease,left ventricular ejection fraction of 50%, moderate pulmonary hypertension,severely elevated left ventricular end-diastolic pressure, normal cardiacoutput and normal cardiac index. The patient was started on Lasix 40 mg twicea day.02/14/2008 - a right and left heart catheterization was performed at [facility] revealing mild 3 vessel coronary arterydisease, mildly reduced left ventricular systolic function (no ejectionfraction noted on the report), mild mitral regurgitation, mildly elevated leftventricular end-diastolic pressure, mild pulmonary hypertension and a normalcardiac index. No changes were made to the medical regimen.02/28/2013 - a right and left heart catheterization performed at [facility] reveals mild 3 vessel coronary artery disease, mild pulmonaryhypertension, preserved cardiac index and no evidence of cardiac shunt. Thisstudy was performed due to an abnormal stress test and a suspected patentforamen ovale versus ASD on echocardiogram. Medical therapy was recommendedbut not detailed in the report.03/05/2017 - a right and left heart catheterization was performed at [facility] revealing nonobstructive coronary artery disease, mildlyreduced left [...] therapy, gastroesophageal reflux disease and obesity.No significant interchange agent the past 2-3 weeks.2. Edema, unspecified type [...] provided to the requesting physician by way [facility] or to the requesting physician via U.S. Mail.This document was generated utilizing PubMatication. I have reviewed andverified that the contents of the document are accurate with the exception ofminor grammatical, spelling and punctuation errors.CONTACT INFORMATION:Thank you for allowing us to participate in the care of this very pleasantpatient. Please free to contact us if we can be of any further assistance.Italo Ann MD, [facility] and Mechelle MariscalPaulding County Hospitalment of Cardiovascular MedicineMercy Health Springfield Regional Medical Centerrt and Vascular Institute[address] [address]Psazsj: [phone] Referring Provider: PETER SOSA [[id number]]Allergies As of Date: 07/21/2017 Noted Allergy ReactionLATEX [...] Status:Closed by LUC ANN MD on 07/21/17 [facility] PROGRESSon 07-21-2017 Protein mass conc HNO ID: [id number]: Italo Caleropayal Montezervice: (none)Author Type: PhysicianType: Progress NotesFiled: 07/21/2017 1:57 PMNote Text:Heart and Vascular [facility] Department of Cardiovascular MedicineOUTPATIENT VISIT DATE 07/21/17OUTPATIENT VISIT TYPEESTABLFORMERLY [facility] PH[facility]IAN:Peter Sosa DO[address] [place] [address]Qqpzt: [phone]: [phone] COMPLAINT:Patient presents with:Leg EdemaShortness of BreathHISTORY OF [...] and under the care of Dr. Schilling [facility]. She has had multiple procedures performed which [...] year. She does state that shewas taking mhgy-bxt-myahots diet pills until recently. They were notworking. [...] review of the testing it seems theprevious tailing hand was going by the guidelines with continuedreasonable [...] (coronary artery disease)- CHF (congestive heart failure) ([facility])- DM (diabetes mellitus) ([facility])- Fibromyalgia- GERD (gastroesophageal reflux disease)- HTN (hypertension)- [...] kg (280 lb) SpO2 96% BMI 49.6 kg/n4Fjfnswb: Well appearing, in no acute distress.Eyes: Conjunctiva [...] - a 2-D echocardiogram performed at the [facility] normal left ventricular systolic function with an [...] [facility] revealed a left ventricular ejection fraction of 50% with abnormalseptal wall motion. There was a small defect involving the inferior ohapical wall which was fixed. This was felt to likely represent artifact.There was no other evidence of Lexiscan stress-induced ischemia.02/24/2017 - a Lexiscan nuclear stress evaluation at the [facility] revealed mildly diminished left ventricular systolic function withan ejection fraction of 48%. There was a moderate sized anterior septaldefect which was partially reversible noted. This was read as suggestiveof possible stress-induced ischemia.Cardiac Catheterizations: 004 - a cardiac catheterization performed at the [facility] revealed normal coronary arteries. There was moderately decreasedleft ventricular systolic function noted with an ejection fraction of 30%. Moderately elevated right heart pressures and a normal cardiac index werenoted. The patient was continued on Demadex, Diovan, around oh lactone,Coreg 3.125 mg twice a day.06/12/2005 - a right and left heart catheterization was performed at [facility] revealing nonobstructive coronary arterydisease, left ventricular ejection fraction of 50%, moderate pulmonaryhypertension, severely elevated left ventricular end-diastolic pressure,normal cardiac output and normal cardiac index. The patient was startedon Lasix 40 mg twice a day.02/14/2008 - a right and left heart catheterization was performed at [facility] revealing mild 3 vessel coronaryartery disease, mildly reduced left ventricular systolic function (noejection fraction noted on the report), mild mitral regurgitation, mildlyelevated left ventricular end-diastolic pressure, mild pulmonaryhypertension and a normal cardiac index. No changes were made to [facility] regimen.02/28/2013 - a right and left heart catheterization performed at [facility] reveals mild 3 vessel coronary artery disease, mildpulmonary hypertension, preserved cardiac index and no evidence of cardiacshunt. This study was performed due to an abnormal stress test and asuspected patent foramen ovale versus ASD on echocardiogram. Medicaltherapy was recommended but not detailed in the report.03/05/2017 - a right and left heart catheterization was performed at [facility] revealing nonobstructive coronary artery disease,mildly reduced left [...] therapy, gastroesophagealreflux disease and obesity. No significant interchange agent the past 2-3weeks.2. Edema, unspecified type - [...] via U.S. Mail.This document was generated utilizing [employer] dictation. I have reviewedand verified that the contents of the document are accurate with theexception of minor grammatical, spelling and punctuation errors.CONTACT INFORMATION:Thank you for allowing us to participate in the care of this very pleasantpatient. Please free to contact us if we can be of any furtherassistance.Maria A Ann MD, FACCRobert and Mechelle Manciapartment of Cardiovascular MedicineMercy Health Springfield Regional Medical Centerrt and Vascular InstituteGregory Ville [address], [place] [address]Fdbivm: [phone] [facility] CNOVon 06-30-2017 CNOV Office Visit (CARDFT) MILLIE GRAHAM ([id number]) 1955 [facility] Time Provider Department06/30/17 12:30 PM ITALO ANN BLAINEPAYAL BERRY During your visit today, we recorded the following information about you: Pulse Respiration Blood pressure Weight 74/minute 18/minute 180/91 127 kg Height 1.6 Cece Ann MD 07/06/2017 1:12 PM [facility] InstituteRobinscription [facility] and Mechelle Mariscal Department of Cardiovascular MedicineOUTPATIENT VISIT DATE 06/30/17OUTPATIENT VISIT TYPENEWPRIMARY CARE PHYSICIAN:Peter Sosa DO[address] [facility] [address]Cvasg: [phone]: [phone] COMPLAINT:Patient presents with:CARD New Patient ConsultHISTORY OF [...] under the care of Dr. Schilling of [facility]. Femis had multiple procedures performed which are [...] year. She does statethat she was taking rswy-vvp-lyjzwqy diet pills until recently. They were notworking. [...] (coronary artery disease)- CHF (congestive heart failure) ([facility])- DM (diabetes mellitus) ([facility])- Fibromyalgia- GERD (gastroesophageal reflux disease)- HTN (hypertension)- OA (osteoarthritis) of knee- JEREMY (obstructive sleep apnea)- Pulmonary HTN ([facility])- Restrictive lung disease- Vitamin D deficiencyPAST SURGICAL [...] kg (280 lb) SpO2 100% BMI 49.6 kg/i8Bfyuuxc: Well appearing, in no acute distress.Eyes: Conjunctiva [...] - a 2-D echocardiogram performed at the [facility] normal left ventricular systolic function with an ejection fraction of60%. There was no significant valvular disease identified. There was nocomment on diastolic function.02/24/2017 - a 2-D echocardiogram performed at the [facility] low normal to mildly reduced left ventricular systolic function withan ejection fraction of 45-50%. There was minimal concentric left ventricularhypertrophy present. There was evidence of grade 1 diastolic dysfunction.There was mild mitral regurgitation. No estimate a right ventricular systolicpressure was possible on this study.Stress Evaluations:02/26/2016 - a Lexiscan nuclear stress evaluation at the [facility] a left ventricular ejection fraction of 50% with abnormal septal wallmotion. There was a small defect involving the inferior oh apical wall whichwas fixed. This was felt to likely represent artifact. There was no otherevidence of Lexiscan stress-induced ischemia.02/24/2017 - [facility] with an ejectionfraction of 48%. There was a moderate sized anterior septal defect which waspartially reversible noted. This was read as suggestive of possiblestress-induced ischemia.Cardiac Catheterizations: 004 - [facility]. There was moderately decreased leftventricular systolic function noted with an ejection fraction of 30%.Moderately elevated right heart pressures and a normal cardiac index werenoted. The patient was continued on Demadex, Diovan, around oh lactone, Coreg3.125 mg twice a day.06/12/2005 - a right and left heart catheterization was performed at [facility] revealing nonobstructive coronary artery disease,left ventricular ejection fraction of 50%, moderate pulmonary hypertension,severely elevated left ventricular end-diastolic pressure, normal cardiacoutput and normal cardiac index. The patient was started on Lasix 40 mg twicea day.02/14/2008 - a right and left heart catheterization was performed at [facility] revealing mild 3 vessel coronary arterydisease, mildly reduced left ventricular systolic function (no ejectionfraction noted on the report), mild mitral regurgitation, mildly elevated leftventricular end-diastolic pressure, mild pulmonary hypertension and a normalcardiac index. No changes were made to the medical regimen.02/28/2013 - a right and left heart catheterization performed at [facility] reveals mild 3 vessel coronary artery disease, mild pulmonaryhypertension, preserved cardiac index and no evidence of cardiac shunt. Thisstudy was performed due to an abnormal stress test and a suspected patentforamen ovale versus ASD on echocardiogram. Medical therapy was recommendedbut not detailed in the report.03/05/2017 - a right and left heart catheterization was performed at [facility] revealing nonobstructive coronary artery disease, mildlyreduced left [...] via U.S. Mail.This document was generated utilizing PubMatication. I have reviewed andverified that the contents of the document are accurate with the exception ofminor grammatical, spelling and punctuation errors.CONTACT INFORMATION:Thank you for allowing us to participate in the care of this very pleasantpatient. Please free to contact us if we can be of any further assistance.Italo Ann MD, [facility] and Mechelle DoddAzpartment of Cardiovascular MedicineMercy Health Springfield Regional Medical Centerrt and Vascular Institute[address] [address]Xanwbi: [phone] Referring Provider: NO PCP [[id number]]Allergies As of [...] by LUC ANN MD on 07/06/17 Normal [facility] PROGRESSon 06-30-2017 Protein mass conc HNO ID: [id number]: Italo FultonyService: (none)Author Type: PhysicianType: Progress NotesFiled: 07/06/2017 1:12 PMNote Text:Heart and Vascular InstituteSeymour and Mechelle [facility] Department of Cardiovascular MedicineOUTPATIENT VISIT DATE 06/30/17OUTPATIENT VISIT TYPENEWPRIMARY CARE PHYSICIAN:[place] [address]Amkti: [phone]: [phone] COMPLAINT:Patient presents with:CARD New Patient ConsultHISTORY OF [...] and under the care of Dr. Schilling [facility]. She has had multiple procedures performed which [...] year. She does state that shewas taking irsh-tvd-wwslzgx diet pills until recently. They were notworking. [...] review of the testing it seems theprevious tailing hand was going by the guidelines with continuedreasonable testing in an effort to try to help the patient's situation.She and her son seems very upset with the lack of progress.PAST MEDICAL HISTORYDiagnosis Date- Anxiety- ASD (atrial septal defect)- Asthma- CAD (coronary artery disease)- CHF (congestive heart failure) ([facility])- DM (diabetes mellitus) ([facility])- Fibromyalgia- GERD (gastroesophageal reflux disease)- HTN (hypertension)- [...] kg (280 lb) SpO2 100% BMI 49.6 kg/t2Bwjziyw: Well appearing, in no acute distress.Eyes: Conjunctiva [...] - a 2-D echocardiogram performed at the [facility] normal left ventricular systolic function with an ejectionfraction of 60%. There was no significant valvular disease identified.There was no comment on diastolic function.02/24/2017 - a 2-D echocardiogram performed at the [facility] low normal to mildly reduced left ventricular systolic functionwith an ejection fraction of 45-50%. There was minimal concentric leftventricular hypertrophy present. There was evidence of grade 1 diastolicdysfunction. There was mild mitral regurgitation. No estimate a rightventricular systolic pressure was possible on this study.Stress Evaluations:02/26/2016 - a Lexiscan nuclear stress evaluation at the [facility] revealed a left ventricular ejection fraction of 50% with abnormalseptal wall motion. There was a small defect involving the inferior ohapical wall which was fixed. This was felt to likely represent artifact.There was no other evidence of Lexiscan stress-induced ischemia.02/24/2017 - a Lexiscan nuclear stress evaluation at the [facility] revealed mildly diminished left ventricular systolic function withan ejection fraction of 48%. There was a moderate sized anterior septaldefect which was partially reversible noted. This was read as suggestiveof possible stress-induced ischemia.Cardiac Catheterizations: 004 - a cardiac catheterization performed at the [facility] revealed normal coronary arteries. There was moderately decreasedleft ventricular systolic function noted with an ejection fraction of 30%. Moderately elevated right heart pressures and a normal cardiac index werenoted. The patient was continued on Demadex, Diovan, around oh lactone,Coreg 3.125 mg twice a day.06/12/2005 - a right and left heart catheterization was performed at [facility] revealing nonobstructive coronary arterydisease, left ventricular ejection fraction of 50%, moderate pulmonaryhypertension, severely elevated left ventricular end-diastolic pressure,normal cardiac output and normal cardiac index. The patient was startedon Lasix 40 mg twice a day.02/14/2008 - a right and left heart catheterization was performed at [facility] revealing mild 3 vessel coronaryartery disease, mildly reduced left ventricular systolic function (noejection fraction noted on the report), mild mitral regurgitation, mildlyelevated left ventricular end-diastolic pressure, mild pulmonaryhypertension and a normal cardiac index. No changes were made to [facility] regimen.02/28/2013 - a right and left heart catheterization performed at [facility] reveals mild 3 vessel coronary artery disease, mildpulmonary hypertension, preserved cardiac index and no evidence of cardiacshunt. This study was performed due to an abnormal stress test and asuspected patent foramen ovale versus ASD on echocardiogram. Medicaltherapy was recommended but not detailed in the report.03/05/2017 - a right and left heart catheterization was performed at [facility] revealing nonobstructive coronary artery disease,mildly reduced left [...] physicianvia U.S. Mail.This document was generated utilizing [employer] dictation. I have reviewedand verified that the contents of the document are accurate with theexception of minor grammatical, spelling and punctuation errors.CONTACT INFORMATION:Thank you for allowing us to participate in the care of this very pleasantpatient. Please free to contact us if we can be of any furtherassistance.Maria A Ann MD, [facility] and Mechelle MariscalDepartment of Cardiovascular MedicineBanner Ironwood Medical Center and Vascular Institute[address] [address]Ntjgsu: [phone] Normal [facility] Vital Signs Date Time Vital Sign Value Performing Clinician Mary miguel 04-28-2025 12:31-0400 Body height 160 cm Vlad Joel MD Work Phone: [facility] 04-28-2025 12:31-0400 Body mass index (BMI) [Ratio] 37.41 kg/m2 Vlad Joel MD Work Phone: [facility] 04-28-2025 12:31-0400 Body weight 95.8 kg Vlad Joel MD Work Phone: [facility] 03-17-2025 11:39-0400 Body height 162.6 cm Leah Barrera MD Work Phone: [facility] 03-17-2025 11:39-0400 Body mass index (BMI) [Ratio] 34.5 kg/m2 Leah Barrera MD Work Phone: [facility] [facility] 03-17-2025 11:39-0400 Body weight 91.17 kg Leah Barrera MD Work Phone: [facility] 03-17-2025 11:39-0400 Diastolic blood pressure 64 mm[Hg] Leah Barrera MD Work Phone: [facility] 03-17-2025 11:39-0400 Heart rate 63 /min Leah Barrera MD Work Phone: [facility] 03-17-2025 11:39-0400 Systolic blood pressure 131 mm[Hg] Leah Barrera MD Work Phone: [facility] 01-18-2025 10:16-0400 Body height 162.6 cm Leah Barrera MD Work Phone: [facility] 01-18-2025 10:16-0400 Body mass index (BMI) [Ratio] 34.5 kg/m2 Leah Barrera MD Work Phone: [facility] 01-18-2025 10:16-0400 Body weight 91.17 kg Leah Barrera MD Work Phone: [facility] 01-18-2025 10:16-0400 Diastolic blood pressure 58 mm[Hg] Leah Barrera MD Work Phone: [facility] 01-18-2025 10:16-0400 Heart rate 76 /min Leah Barrera MD Work Phone: [facility] 01-18-2025 10:16-0400 Systolic blood pressure 91 mm[Hg] Leah Barrera MD Work Phone: [facility] 01-06-2025 07:28-0400 Body temperature 97.7 [degF] Estrella Bryan MD Work Phone: [facility] 01-06-2025 07:28-0400 Diastolic blood pressure 57 mm[Hg] Estrella Bryan MD Work Phone: [facility] 01-06-2025 07:28-0400 Heart rate 60 /min Estrella Bryan MD Work Phone: [facility] 01-06-2025 07:28-0400 Respiratory rate 20 /min Estrella Bryan MD Work Phone: [facility] 01-06-2025 07:28-0400 SaO2% (BldA) [Mass fraction] 97 % Estrella Bryan MD Work Phone: [facility] 01-06-2025 07:28-0400 Systolic blood pressure 124 mm[Hg] Estrella Bryan MD Work Phone: [facility] 01-05-2025 15:07-0400 Body height 160 cm Estrella Bryan MD Work Phone: [facility] 01-05-2025 15:07-0400 Body mass index (BMI) [Ratio] 37.92 kg/m2 Estrella Bryan MD Work Phone: [facility] 01-05-2025 15:07-0400 Body weight 97.07 kg Estrella Bryan MD Work Phone: [facility] 10-27-2024 12:38-0500 Body height 160.02 cm [facility] 10-27-2024 12:38-0500 Body mass index (BMI) [Ratio] 38.9 kg/m2 [facility] 10-27-2024 12:38-0500 Body temperature 97.4 [degF] [facility] 10-27-2024 12:38-0500 Body weight 99.84 kg [facility] 10-27-2024 12:38-0500 Diastolic blood pressure 77 mm[Hg] [facility] 10-27-2024 12:38-0500 Heart rate 80 /min [facility] 10-27-2024 12:38-0500 Respiratory rate 18 /min [facility] 10-27-2024 12:38-0500 SaO2% (BldA) [Mass fraction] 98 % [facility] 10-27-2024 12:38-0500 Systolic blood pressure 115 mm[Hg] [facility] 01-05-2024 14:24-0400 Body height 160.02 cm [facility] 01-05-2024 14:24-0400 Body mass index (BMI) [Ratio] 35.9 kg/m2 [facility] 01-05-2024 14:24-0400 Body temperature 97.3 [degF] [facility] 01-05-2024 14:24-0400 Body weight 92.07 kg [facility] 01-05-2024 14:24-0400 Diastolic blood pressure 82 mm[Hg] [facility] 01-05-2024 14:24-0400 Heart rate 72 /min [facility] 01-05-2024 14:24-0400 Respiratory rate 20 /min [facility] 01-05-2024 14:24-0400 SaO2% (BldA) [Mass fraction] 99 % [facility] 01-05-2024 14:24-0400 Systolic blood pressure 133 mm[Hg] [facility] 07-07-2023 14:15-0400 Body height 160.02 cm Yuan Romeo Other [facility] [employer] Other 07-07-2023 14:15-0400 Body mass index (BMI) [Ratio] 36.31 kg/m2 Yuan Romeo Other [employer] Other 07-07-2023 14:15-0400 Body temperature 97.4 [degF] Yuan Romeo Other [employer] Other 07-07-2023 14:15-0400 Body weight 92.99 kg Yuan Romeo Other [employer] Other 07-07-2023 14:15-0400 Diastolic blood pressure 80 mm[Hg] Yuan Tobinno Other [employer] Other 07-07-2023 14:15-0400 Respiratory rate 20 /min Yuan Tobinno Other [employer] Other 07-07-2023 14:15-0400 SaO2% (BldA) [Mass fraction] 100 % Yuan Romeo Other [employer] Other 07-07-2023 14:15-0400 Systolic blood pressure 145 mm[Hg] Yuan Romeo Other [employer] Other 03-25-2023 08:50-0400 Body temperature 97.5 [degF] Anusha Barber MD Work Phone: [employer] 03-25-2023 08:50-0400 Diastolic blood pressure 67 mm[Hg] Anusha Barber MD Work Phone: [employer] 03-25-2023 08:50-0400 Heart rate 76 /min Anusha Barber MD Work Phone: [employer] 03-25-2023 08:50-0400 SaO2% (BldA) [Mass fraction] 96 % Anusha Barber MD Work Phone: [employer] 03-25-2023 08:50-0400 Systolic blood pressure 111 mm[Hg] Anusha Barber MD Work Phone: [employer] 03-25-2023 04:20-0400 Respiratory rate 14 /min Anusha Barber MD Work Phone: [employer] 03-19-2023 11:45-0400 Body height 160 cm Anusha Barber MD Work Phone: [employer] 03-19-2023 11:45-0400 Body mass index (BMI) [Ratio] 40.07 kg/m2 Anusha Barber MD Work Phone: [employer] 03-19-2023 11:45-0400 Body weight 102.6 kg Anusha Barber MD Work Phone: [employer] 02-09-2023 13:45-0400 Body height 160.02 cm Reynaldo Trejo Other [employer] Other 02-09-2023 13:45-0400 Body mass index (BMI) [Ratio] 42.31 kg/m2 Reynaldo Trejo Other [employer] Other 02-09-2023 13:45-0400 Body weight 108.37 kg Reynaldo Trejo Other [employer] Other 02-09-2023 13:45-0400 Diastolic blood pressure 61 mm[Hg] Reynaldo Trejo Other [employer] Other 02-09-2023 13:45-0400 Respiratory rate 18 /min Reynaldo Trejo Other [employer] Other 02-09-2023 13:45-0400 SaO2% (BldA) [Mass fraction] 98 % Reynaldo Trejo Other [employer] Other 02-09-2023 13:45-0400 Systolic blood pressure 125 mm[Hg] Reynaldo Trejo Other [employer] Other 01-06-2023 15:15-0400 Body height 160.02 cm Yuan Romeo Other [employer] Other 01-06-2023 15:15-0400 Body mass index (BMI) [Ratio] 41.8 kg/m2 Christnilesher Agueda Other [employer] Other 01-06-2023 15:15-0400 Body temperature 98 [degF] Christnilesher Agueda Other [employer] Other 01-06-2023 15:15-0400 Body weight 107.05 kg Christopher Agueda Other [employer] Other 01-06-2023 15:15-0400 Diastolic blood pressure 74 mm[Hg] Christnilesher Agueda Other [employer] Other 01-06-2023 15:15-0400 Respiratory rate 20 /min Christnilesher Agueda Other [employer] Other 01-06-2023 15:15-0400 SaO2% (BldA) [Mass fraction] 98 % Christopher Agueda Other [employer] Other 01-06-2023 15:15-0400 Systolic blood pressure 117 mm[Hg] Waner Agueda Other [employer] Other 10-06-2022 08:06-0500 Body temperature 97.7 [degF] Anusha Barber MD Work Phone: [employer] 10-06-2022 08:06-0500 Diastolic blood pressure 75 mm[Hg] Anusha Barber MD Work Phone: [employer] 10-06-2022 08:06-0500 Heart rate 73 /min Anusha Barber MD Work Phone: [employer] 10-06-2022 08:06-0500 Respiratory rate 16 /min Anusha Barber MD Work Phone: [employer] 10-06-2022 08:06-0500 SaO2% (BldA) [Mass fraction] 96 % Anusha Barber MD Work Phone: [employer] 10-06-2022 08:06-0500 Systolic blood pressure 134 mm[Hg] Anusha Barber MD Work Phone: [employer] 10-02-2022 10:00-0500 Body height 160 cm Anusha Barber MD Work Phone: [employer] 10-02-2022 10:00-0500 Body mass index (BMI) [Ratio] 43 kg/m2 Anusha Barber MD Work Phone: [employer] 10-02-2022 10:00-0500 Body weight 110.1 kg Anusha Barber MD Work Phone: [employer] 09-30-2022 11:00-0500 Body height 160.02 cm Mabel [employer] Other [employer] Other 09-30-2022 11:00-0500 Body mass index (BMI) [Ratio] 43.61 kg/m2 [employer]abel [employer] Other [employer] Other 09-30-2022 11:00-0500 Body temperature 97.3 [degF] Azoliver [employer] Other [employer] Other 09-30-2022 11:00-0500 Body weight 111.68 kg Aziz [employer] Other [employer] Other 09-30-2022 11:00-0500 Diastolic blood pressure 75 mm[Hg] [employer] Other [employer] Other 09-30-2022 11:00-0500 Respiratory rate 18 /min Mabel Ortega Other [employer] Other 09-30-2022 11:00-0500 SaO2% (BldA) [Mass fraction] 94 % Mabel Ortega Other [employer] Other 09-30-2022 11:00-0500 Systolic blood pressure 111 mm[Hg] Mabel Ortega Other [employer] Other 09-25-2022 13:14-0500 Body height 160.02 cm Peter Julio Cesar Veruta Work Phone: [facility] [employer] DO Work Phone: 09-25-2022 13:14-0500 Body mass index (BMI) [Ratio] 43.93 kg/m2 Peter Julio Cesar Sosa Work Phone: [facility] [employer] DO Work Phone: 09-25-2022 13:14-0500 Body surface area Derived from formula 2.12 m2 Peter Julio Cesar Veruta Work Phone: [employer] [employer] DO Work Phone: 09-25-2022 13:14-0500 Body weight 112.49 kg Peter Julio Cesar Sosa Work Phone: [employer] [employer] DO Work Phone: 09-25-2022 13:14-0500 Diastolic blood pressure 70 mm[Hg] Peter Harrell Sosa Work Phone: [employer] [employer] DO Work Phone: 09-25-2022 13:14-0500 Heart rate 54 /min Peter Harrell Sosa Work Phone: [employer] [employer] DO Work Phone: 09-25-2022 13:14-0500 Systolic blood pressure 122 mm[Hg] Peter Sosa Work Phone: [facility] [employer] DO Work Phone: 08-18-2022 10:00-0400 Body height 160.02 cm Reynaldo Trejo Other [employer] Other 08-18-2022 10:00-0400 Body mass index (BMI) [Ratio] 43.55 kg/m2 Reynaldo Trejo Other [employer] Other 08-18-2022 10:00-0400 Body weight 111.54 kg Reynaldo Trejo Other [employer] Other 08-18-2022 10:00-0400 Diastolic blood pressure 70 mm[Hg] Reynaldo Trejo Other [employer] Other 08-18-2022 10:00-0400 Respiratory rate 18 /min Reynaldo Trejo Other [employer] Other 08-18-2022 10:00-0400 SaO2% (BldA) [Mass fraction] 99 % Reynaldo Trejo Other [employer] Other 08-18-2022 10:00-0400 Systolic blood pressure 124 mm[Hg] Reynaldo Trejo Other [employer] Other 07-01-2022 10:15-0400 Body height 160.02 cm Reynaldo Trejo Other [employer] Other 07-01-2022 10:15-0400 Body mass index (BMI) [Ratio] 44.85 kg/m2 Reynaldo Trejo Other [employer] Other 07-01-2022 10:15-0400 Body weight 114.85 kg Reynaldo Trejo Other [employer] Other 07-01-2022 10:15-0400 Diastolic blood pressure 66 mm[Hg] Reynaldo Trejo Other [employer] Other 07-01-2022 10:15-0400 Respiratory rate 18 /min Reynaldo Trejo Other [employer] Other 07-01-2022 10:15-0400 SaO2% (BldA) [Mass fraction] 97 % Reynaldo Trejo Other [employer] Other 07-01-2022 10:15-0400 Systolic blood pressure 127 mm[Hg] Reynaldo Trejo Other [employer] Other 05-27-2022 12:11-0400 Body height 160.02 cm DO Elda Schwerer Work Phone: [facility] 05-27-2022 12:11-0400 Body temperature 97.8 [degF] DO Elda Schwerer Work Phone: [facility] 05-27-2022 12:11-0400 Body weight 113.4 kg DO Elda Schwerer Work Phone: [facility] 05-27-2022 12:11-0400 Diastolic blood pressure 73 mm[Hg] DO Elda Schwerer Work Phone: [facility] 05-27-2022 12:11-0400 Heart rate 74 /min DO Elda Schwerer Work Phone: [facility] 05-27-2022 12:11-0400 Respiratory rate 18 /min DO Elda Schwerer Work Phone: [facility] 05-27-2022 12:11-0400 SaO2% (BldA) [Mass fraction] 97 % DO Elda Schwerer Work Phone: [facility] 05-27-2022 12:11-0400 Systolic blood pressure 142 mm[Hg] DO Elda Schwerer Work Phone: [facility] 05-20-2022 12:15-0400 Body height 160.02 cm Reynaldo Trejo Other [employer] Other 05-20-2022 12:15-0400 Body mass index (BMI) [Ratio] 44.58 kg/m2 Reynaldo Trejo Other [employer] Other 05-20-2022 12:15-0400 Body weight 114.17 kg Reynaldo Trejo Other [employer] Other 05-20-2022 12:15-0400 Diastolic blood pressure 58 mm[Hg] Reynaldo Trejo Other [employer] Other 05-20-2022 12:15-0400 Respiratory rate 18 /min Reynaldo Trejo Other [employer] Other 05-20-2022 12:15-0400 SaO2% (BldA) [Mass fraction] 96 % Reynaldo Trejo Other [employer] Other 05-20-2022 12:15-0400 Systolic blood pressure 116 mm[Hg] Reynaldo Trejo Other [employer] Other 04-16-2022 15:45-0400 Body height 160.02 cm Reynaldo Trejo Other [employer] Other 04-16-2022 15:45-0400 Body mass index (BMI) [Ratio] 44.99 kg/m2 Reynaldo Trejo Other [employer] Other 04-16-2022 15:45-0400 Body weight 115.21 kg Reynaldo Davisdiff Other [employer] Other 04-16-2022 15:45-0400 Diastolic blood pressure 67 mm[Hg] Reynaldo Davisdiff Other [employer] Other 04-16-2022 15:45-0400 Respiratory rate 18 /min Reynaldo Davisdiff Other [employer] Other 04-16-2022 15:45-0400 SaO2% (BldA) [Mass fraction] 97 % Reynaldo Davisdiff Other [employer] Other 04-16-2022 15:45-0400 Systolic blood pressure 123 mm[Hg] Reynaldo Davisdiff Other [employer] Other 04-16-2022 13:57-0400 Body temperature 98 [degF] DO Elda Schwerer Work Phone: [facility] 04-16-2022 13:57-0400 Body weight 115.21 kg DO Elda Schwerer Work Phone: [facility] 04-16-2022 13:57-0400 Diastolic blood pressure 73 mm[Hg] DO Elda Schwerer Work Phone: [facility] 04-16-2022 13:57-0400 Heart rate 81 /min DO Elda Schwerer Work Phone: [facility] 04-16-2022 13:57-0400 Respiratory rate 16 /min DO Elda Schwerer Work Phone: [facility] 04-16-2022 13:57-0400 SaO2% (BldA) [Mass fraction] 94 % DO Elda Schwerer Work Phone: [facility] 04-16-2022 13:57-0400 Systolic blood pressure 169 mm[Hg] DO Elda Schwerer Work Phone: [facility] 04-15-2022 15:45-0400 Body height 160.02 cm Yuan Romeo Other [employer] Other 04-15-2022 15:45-0400 Body mass index (BMI) [Ratio] 44.63 kg/m2 Yuan Romeo Other [employer] Other 04-15-2022 15:45-0400 Body temperature 97 [degF] Yuan Romeo Other [employer] Other 04-15-2022 15:45-0400 Body weight 114.31 kg Yuan Tobinno Other [employer] Other 04-15-2022 15:45-0400 Diastolic blood pressure 84 mm[Hg] Yuan Tobinno Other [employer] Other 04-15-2022 15:45-0400 Respiratory rate 20 /min Yuan Ramsaydano Other [employer] Other 04-15-2022 15:45-0400 SaO2% (BldA) [Mass fraction] 95 % Yuan Romeo Other [employer] Other 04-15-2022 15:45-0400 Systolic blood pressure 141 mm[Hg] Yuan Romeo Other [employer] Other 04-02-2022 14:40-0400 Body height 160.02 cm Mabel Alicias Other [employer] Other 04-02-2022 14:40-0400 Body mass index (BMI) [Ratio] 44.88 kg/m2 Mabel Alicias Other [employer] Other 04-02-2022 14:40-0400 Body temperature 96.9 [degF] Mabel Alicias Other [employer] Other 04-02-2022 14:40-0400 Body weight 114.94 kg Mabel Alicias Other [employer] Other 04-02-2022 14:40-0400 Diastolic blood pressure 75 mm[Hg] Mabel Alicias Other [employer] Other 04-02-2022 14:40-0400 Respiratory rate 18 /min Mabel Alicias Other [employer] Other 04-02-2022 14:40-0400 SaO2% (BldA) [Mass fraction] 92 % Mabel Alicias Other [employer] Other 04-02-2022 14:40-0400 Systolic blood pressure 120 mm[Hg] Mabel Mcallisterhous Other [employer] Other 02-05-2022 15:45-0400 Body height 160.02 cm Reynaldo Trejo Other [employer] Other 02-05-2022 15:45-0400 Body mass index (BMI) [Ratio] 45.06 kg/m2 Reynaldo Trejo Other [employer] Other 02-05-2022 15:45-0400 Body weight 115.4 kg Reynaldo Trejo Other [employer] Other 02-05-2022 15:45-0400 Diastolic blood pressure 68 mm[Hg] Reynaldo Trejo Other [employer] Other 02-05-2022 15:45-0400 Respiratory rate 18 /min Reynaldo Trejo Other [employer] Other 02-05-2022 15:45-0400 SaO2% (BldA) [Mass fraction] 95 % Reynaldo Trejo Other [employer] Other 02-05-2022 15:45-0400 Systolic blood pressure 120 mm[Hg] Reynaldo Davisdiff Other [employer] Other 12-18-2021 14:44-0500 Body height 161.29 cm DO Elda Sibley Work Phone: [facility] 11-05-2021 16:00-0500 Body mass index (BMI) [Ratio] 46.09 kg/m2 Elda Schwerer Other [employer] Other 11-05-2021 16:00-0500 Body weight 118.03 kg Elda Schwerer Other [employer] Other 11-05-2021 16:00-0500 Diastolic blood pressure 88 mm[Hg] Elda Schwerer Other [employer] Other 11-05-2021 16:00-0500 SaO2% (BldA) [Mass fraction] 93 % Elda Lynnerer Other [employer] Other 11-05-2021 16:00-0500 Systolic blood pressure 138 mm[Hg] Elda Schwerer Other [employer] Other 11-05-2021 14:45-0500 Body height 160.02 cm Reynaldo Maya Other [employer] Other 11-05-2021 14:45-0500 Body mass index (BMI) [Ratio] 46.44 kg/m2 Reynaldo Davisdiff Other [employer] Other 11-05-2021 14:45-0500 Body weight 118.93 kg Reynaldo Maya Other [employer] Other 11-05-2021 14:45-0500 Diastolic blood pressure 68 mm[Hg] Reynaldo Trejo Other [employer] Other 11-05-2021 14:45-0500 Respiratory rate 18 /min Reynaldosara Trejo Other [employer] Other 11-05-2021 14:45-0500 SaO2% (BldA) [Mass fraction] 95 % Reynaldo Trejo Other [employer] Other 11-05-2021 14:45-0500 Systolic blood pressure 118 mm[Hg] Reynaldo Trejo Other [employer] Other 09-25-2021 14:00-0500 Body height 160.02 cm Laquita Medina Other [employer] Other 09-25-2021 14:00-0500 Body mass index (BMI) [Ratio] 46.97 kg/m2 Laquita Medina Other [employer] Other 09-25-2021 14:00-0500 Body temperature 98.3 [degF] Laquita Medina Other [employer] Other 09-25-2021 14:00-0500 Body weight 120.29 kg Laquita Medina Other [employer] Other 09-25-2021 14:00-0500 Diastolic blood pressure 80 mm[Hg] Laquita Medina Other [employer] Other 09-25-2021 14:00-0500 Respiratory rate 18 /min Laquita Medina Other [employer] Other 09-25-2021 14:00-0500 SaO2% (BldA) [Mass fraction] 93 % Laquita Medina Other [employer] Other 09-25-2021 14:00-0500 Systolic blood pressure 139 mm[Hg] Laquita Medina Other [employer] Other 07-25-2021 11:45-0400 Body height 160.02 cm Elda Sibley Other [employer] Other 07-25-2021 11:45-0400 Body mass index (BMI) [Ratio] 46.16 kg/m2 Elda Schwerer Other [employer] Other 07-25-2021 11:45-0400 Body weight 118.21 kg Elda Schwerer Other [employer] Other 07-25-2021 11:45-0400 Diastolic blood pressure 70 mm[Hg] Elda Schwerer Other [employer] Other 07-25-2021 11:45-0400 Respiratory rate 18 /min Elda Schwerer Other [employer] Other 07-25-2021 11:45-0400 SaO2% (BldA) [Mass fraction] 98 % Elda Schwerer Other [employer] Other 07-25-2021 11:45-0400 Systolic blood pressure 126 mm[Hg] Elda Schwerer Other [employer] Other 07-11-2021 12:00-0400 Body height 160.02 cm Reynaldo Trejo Jr. Other [employer] Other 07-11-2021 12:00-0400 Body mass index (BMI) [Ratio] 45.84 kg/m2 Reynaldo Trejo Jr. Other [employer] Other 07-11-2021 12:00-0400 Body weight 117.39 kg Reynaldo Trejo Jr. Other [employer] Other 07-11-2021 12:00-0400 Diastolic blood pressure 63 mm[Hg] Reynaldo Davismaxim Carvajal Other [employer] Other 07-11-2021 12:00-0400 Respiratory rate 18 /min Reynaldo Bonilladesiree Carvajal Other [employer] Other 07-11-2021 12:00-0400 SaO2% (BldA) [Mass fraction] 96 % Reynaldo Davismaxim Carvajal Other [employer] Other 07-11-2021 12:00-0400 Systolic blood pressure 114 mm[Hg] Reynaldo Trejo Other [employer] Other 07-10-2021 12:15-0400 Body height 160.02 cm Yuan Romeo Other [employer] Other 07-10-2021 12:15-0400 Body mass index (BMI) [Ratio] 45.34 kg/m2 Yuan Romeo Other [employer] Other 07-10-2021 12:15-0400 Body temperature 97.3 [degF] Yuan Romeo Other [employer] Other 07-10-2021 12:15-0400 Body weight 116.12 kg Yuan Romeo Other [employer] Other 07-10-2021 12:15-0400 Diastolic blood pressure 65 mm[Hg] Yuan Romeo Other [employer] Other 07-10-2021 12:15-0400 Respiratory rate 20 /min Yuan Romeo Other [employer] Other 07-10-2021 12:15-0400 SaO2% (BldA) [Mass fraction] 94 % Yuan Romeo Other [employer] Other 07-10-2021 12:15-0400 Systolic blood pressure 108 mm[Hg] Romieted Ramsaydano Other [employer] Other Encounters Encounter Date Encounter Type Care Provider Facility Start: 06-13-2025 End: 06-13-2025 [facility] Start: 04-28-2025 ambulatory VLAD JOEL Facility :[facility] Start: 04-28-2025 End: 04-28-2025 Office consultation new/estab patient 60 min Vlad Joel MD Work Phone: [facility] [place] Comment on above: Left knee pain, unsp ecified chronicity (Primary Dx); Left hip pain; History of total knee arthroplasty, left; Primary osteoarthritis of left hip Start: 04-28-2025 End: 04-28-2025 Subsequent hospital visit by physician Vlad Joel MD Work Phone: [facility] [place] Comment on above: Arrived Start: 04-28-2025 ambulatory VLAD JOEL Facility :[facility] Start: 04-11-2025 End: 04-11-2025 ambulatory Peter Sosa [facility] Work Phone: Start: 04-11-2025 End: 04-11-2025 Departed Referred Peter Sosa DO -[facility] Start: 03-17-2025 End: 03-17-2025 Clinton Barrera MD Work Phone: [facility] Start: 03-17-2025 End: 03-17-2025 [facility] Start: 03-17-2025 End: 03-17-2025 ambulatory LEAH BARRERA Not Available Start: 03-17-2025 End: 03-17-2025 Office outpatient visit 25 minutes Leah Barrera MD Work Phone: [facility] Comment on above: Allergic rhinitis, u nspecified seasonality, unspecified trigger (Primary Dx); Sensorineural hearing loss (SNHL), bilateral; Nontoxic multinodular goiter (CMS/HCC) Start: 03-14-2025 End: 03-14-2025 ambulatory DAPHNEY S CONSTANTINO Not Available Start: 03-14-2025 End: 03-14-2025 Patient encounter procedure Daphney Constantino AUD Work Phone: [facility] Comment on above: Sensorineural hearin g loss, bilateral (Primary Dx); Tinnitus, bilateral Start: 03-14-2025 End: 03-14-2025 Bamboo flowsheet Daphney Constantino AUD Work Phone: [facility] Start: 03-14-2025 End: 03-14-2025 Bamboo flowsheet Daphney Constantino AUD Work Phone: [facility]ANG[facility] [email or web address] Start: 01-24-2025 End: 01-24-2025 Clinisync Result [...] End: 01-06-2025 ambulatory ESTRELLA Lau [facility] Start: 01-05-2025 End: 01-06-2025 Subsequent hospital visit by physician Estrella Bryan MD Work Phone: [facility] Comment on above: Hypotension after pr ocedure (Primary Dx) Start: 11-14-2024 End: 11-14-2024 ambulatory ESTRELLA Verma [facility] Start: 11-14-2024 End: 11-14-2024 Subsequent hospital visit by physician [facility] Start: 10-27-2024 End: 10-27-2024 ambulatory [facility] Work Phone: Start: 10-27-2024 End: 10-27-2024 Patient encounter procedure [facility] [place] Work Phone: Start: 06-06-2024 End: 06-06-2024 Encounter identifier Anusha Barber Work Phone: [facility] Start: 06-03-2024 End: 06-03-2024 Encounter identifier Anusha Barber Work Phone: [facility] Start: 06-01-2024 End: 06-01-2024 ambulatory Carrolleli Boothe Facility[place] Start: 05-25-2024 End: 05-25-2024 Encounter identifier Kaur Pierre Work Phone: [facility] Work Phone: Start: 05-25-2024 End: 05-25-2024 Office outpatient visit 25 minutes Kaur Pierre Work Phone: [facility] Start: 03-28-2024 End: 03-28-2024 ambulatory Carroll Talrosa Bejarano Facility:[facility] Start: 03-23-2024 End: 03-23-2024 Office outpatient visit 15 minutes Anusha Barber Work Phone: [facility] Start: 01-05-2024 End: 01-05-2024 ambulatory [facility] Work Phone: Start: 01-05-2024 End: 01-05-2024 Patient encounter procedure [facility] Work Phone: Start: 11-03-2023 End: 11-03-2023 ambulatory Yuan Tobinno Other [employer] Other Start: 11-03-2023 Telephone encounter Yuan wood [facility] Start: 09-22-2023 End: 09-22-2023 ambulatory Azoliver Aryreynas Other [employer] Other Start: 09-22-2023 Telephone encounter Azoliver Bakreynas [facility] Start: 08-07-2023 End: 08-07-2023 Office outpatient visit 10 minutes Kaur Pierre Work Phone: [facility] Start: 07-09-2023 End: 07-09-2023 Encounter identifier Anusha Barber Work Phone: [facility] Start: 07-07-2023 End: 07-07-2023 ambulatory Yuan Tobinno Other [employer] Other Start: 07-07-2023 Office outpatient vi sit 15 minutes Yuan Tobinno [facility] Start: 07-03-2023 End: 07-03-2023 Encounter identifier Kaur Pierre Work Phone: [facility] Start: 06-29-2023 End: 06-29-2023 Encounter identifier Kaur Pierre Work Phone: [facility] Start: 06-29-2023 End: 06-29-2023 Postop follow up visit related to original px Anusha Barber MD [facility] Start: 06-04-2023 End: 06-04-2023 ambulatory Reynaldo Trejo Other [employer] Other Start: 06-04-2023 Telephone encounter Reynaldo [facility] Start: 03-30-[address] PETER SOSA Fac ility:[facility] Start: 03-20-2023 End: 03-20-2023 ambulatory Mabel Ortega Other [employer] Other Start: 03-20-2023 Telephone encounter Mabel Ortega [facility] Ne[facility] Start: 03-19-2023 End: 03-19-2023 Encounter identifier Kaur Pierre Work Phone: [facility] BERRY Start: 03-19-2023 ambulatory MARLENA LOWMIRISHABH . Facility: Start: 03-19-2023 End: 03-25-2023 Evaluation and management of inpatient Anusha Barber MD Work Phone: [facility] Comment on above: Infection and inflam matory reaction due to other internal joint prosthesis, initial encounter ([facility]) Start: 03-18-2023 End: 03-18-2023 Encounter identifier Madonna Cavanaugh Work Phone: [facility] Start: 03-17-2023 End: 03-17-2023 Encounter identifier Madonna Cavanaugh Work Phone: [facility] Start: 03-15-2023 End: 03-15-[address] ITALO ABERNATHY . Facility:[facility] Start: 02-09-2023 Registered Recurring DO Peter Sosa Work Phone: [facility] Work Phone: Start: 02-09-2023 End: 02-09-2023 ambulatory Reynaldo Trejo Other [employer] Other Start: 02-09-2023 Follow-up encounter Reynaldo Davisdiff [facility] Start: 01-26-2023 End: 01-26-2023 ambulatory Reynaldo Maya Other [employer] Other Start: 01-26-2023 Telephone encounter Reynaldo Maya [facility] Start: 01-07-2023 End: 01-08-[address] LEAH BARRERA Facility:[facility] Start: 01-06-2023 End: 01-06-2023 ambulatory Yuan Romeo Other [employer] Other Start: 01-06-2023 Office outpatient vi sit 15 minutes Yuan Romeo [facility] Start: 12-18-2022 End: 12-19-2022 ambulatory GIULIA PICHARDO . Facility:[facility] Start: 11-24-2022 End: 11-24-2022 Encounter identifier Anusha Barber Work Phone: [facility] Start: 11-20-2022 End: 11-20-2022 ambulatory Reynaldo Trejo Other [employer] Other Start: 11-20-2022 Telephone encounter Reynaldo Trejo [facility] Start: 11-04-2022 End: 11-05-[address] VLAD OMALLEY Facility:[facility] Start: 10-24-2022 End: 02-07-[address] DAVIDSON SHAY Facility:[facility] Start: 10-23-2022 End: 10-23-2022 Postop follow up visit related to original px Anusha Barber MD [facility] Start: 10-23-2022 End: 10-23-2022 Encounter identifier Anusha Barber Work Phone: [facility] Start: 10-06-2022 End: 10-06-2022 Encounter identifier Anusha Barber Work Phone: [facility] Start: 10-02-2022 End: 10-02-2022 Encounter identifier Carlos Gomez Work Phone: [facility] Start: 10-02-2022 End: 10-06-2022 Evaluation and management of inpatient Anusha Barber MD Work Phone: [facility] Comment on above: Mechanical loosening of internal left knee prosthetic joint, subsequent encounter (Primary Dx) Start: 09-30-2022 End: 09-30-2022 ambulatory Mabel Ortega Other [employer] Other Start: 09-30-2022 Office outpatient vi sit 15 minutes Mabel Ortega [facility] Neph[facility] Start: 09-26-2022 End: 09-26-2022 Encounter identifier Kaur Constantino Work Phone: [facility] Start: 09-25-[address] Jude Sosa Facility: Start: 09-25-2022 Office outpatient vi sit 25 minutes Peter Sosa Work Phone: [facility] [address] DO Work Phone: Start: 09-23-2022 End: 09-24-2022 ambulatory MABEL ORTEGA Facility:[facility] Start: 09-19-2022 End: 09-19-2022 Encounter identifier Anusha Barber Work Phone: [facility] Start: 09-18-2022 End: 09-19-2022 ambulatory ELDA SIBLEY Facility:[facility] Start: 09-03-2022 End: 09-03-2022 Office outpatient visit 25 minutes Anusha Barber Work Phone: [facility] Start: 08-18-2022 End: 08-18-2022 ambulatory Reynaldo Trejo Other [employer] Other Start: 08-18-2022 Follow-up encounter [facility]aldo [facility] Start: 08-05-2022 End: 08-05-2022 ambulatory Reynaldo Trejo Other [employer] Other Start: 08-05-2022 Telephone encounter Reynaldo [facility] Start: 08-04-2022 End: 08-04-2022 ambulatory Reynaldo Trejo Other [employer] Other Start: 08-04-2022 Telephone encounter [facility]aldo [facility] Start: 07-09-2022 End: 07-09-2022 Office outpatient visit 15 minutes Anusha Barber Work Phone: [facility] [place] Start: 07-01-2022 End: 07-01-2022 ambulatory Reynaldo Trejo Other [employer] Other Start: 07-01-2022 Follow-up encounter Reynaldo [facility] Start: 06-05-2022 End: 08-30-[address] PETER SOSA Facility:[facility] Start: 05-29-2022 End: 05-30-[address] PETER SOSA Facility:[facility] Start: 05-28-2022 End: 05-28-2022 ambulatory Yuan Romeo Other [employer] Other Start: 05-28-2022 Telephone encounter Yuan wood [facility] [place] Start: 05-27-2022 End: 05-27-2022 Emergency department patient visit DO Elda Sibley Work Phone: [facility] Start: 05-26-2022 End: 05-26-2022 Office outpatient visit 15 minutes Anusha Barber Work Phone: [facility] [place] Start: 05-21-2022 End: 05-21-2022 Patient encounter procedure DO Elda Sibley Work Phone: [facility] [address] Start: 05-20-2022 End: 05-20-2022 ambulatory Reynaldo Trejo Other [employer] Other Start: 05-20-2022 Follow-up encounter Reynaldo [facility] Start: 05-20-2022 Registered Recurring DO Cedric Sibley Work Phone: [facility] Start: 05-13-2022 End: 05-13-2022 ambulatory ELDA SIBLEY Facility:[facility] Start: 05-12-2022 End: 05-12-2022 Office outpatient visit 25 minutes Anusha Barber Work Phone: [facility] [place] Start: 05-08-2022 End: 05-09-[address] ANUSHA WHITESIDE Facility:[facility] Start: 04-29-2022 End: 04-30-[address] DOCTOR ESPINO Facility:[facility] Start: 04-25-2022 End: 04-26-[address] Lucinda DESAI Facility:[facility] Start: 04-24-2022 End: 04-25-[address] LUCÍA GRIMALDO . Facility:[facility] Start: 04-16-2022 End: 04-16-2022 ambulatory Reynaldo Trejo Other [place] [employer] Other Start: 04-16-2022 Follow-up encounter Reynaldo [facility] Start: 04-16-2022 Registered Recurring DO Cedric Sibley Work Phone: [facility] Start: 04-15-2022 End: 04-15-2022 ambulatory Yuan Romeo Other [employer] Other Start: 04-15-2022 Office outpatient vi sit 15 minutes Yuan Romeo [facility] Start: 04-02-2022 End: 04-02-2022 ambulatory Azoliver Alicias Other [employer] Other Start: 04-02-2022 Office outpatient vi sit 15 minutes Aziz Bakhous [facility] Start: 04-01-2022 End: 04-02-[address] LAQUITA MEDINA Facility: Start: 04-01-2022 Rx Renewal Elda Lynn erer Work Phone: [facility] [facility] DO Work Phone: Start: 03-20-2022 End: 03-20-2022 ambulatory Reynaldo Trejo Other [employer] Other Start: 03-20-2022 Telephone encounter Reynaldo Trejo [facility] Start: 03-13-2022 End: 03-13-2022 ambulatory Mabel Alicias Other [employer] Other Start: 03-13-2022 Telephone encounter Mabel Alicias [facility] [place] Start: 03-04-2022 End: 03-04-2022 ambulatory Aziz Bakhous Other [employer] Other Start: 03-04-2022 Telephone encounter Azoliver Mcallisterhous [facility] Start: 02-27-2022 End: 02-27-2022 ambulatory Elda Sibley Other [employer] Other Start: 02-27-2022 Telephone encounter Elda Sibley [facility] Start: 02-10-2022 End: 02-10-2022 ambulatory Wes Jason Other [employer] Other Start: 02-10-2022 Telephone encounter Wes Jason [facility] Start: 02-05-2022 End: 02-05-2022 ambulatory Reynaldo Trejo Other [employer] Other Start: 02-05-2022 Follow-up encounter [facility]aldo [facility] Start: 01-27-2022 End: 01-27-2022 ambulatory Elda Schwerer Other [employer] Other Start: 01-27-2022 Telephone encounter Elda Schwerer [facility] [place] Start: 01-22-2022 End: 01-22-2022 ambulatory Aziz Bakhous Other [employer] Other Start: 01-22-2022 Telephone encounter Aziz Bakhous [facility] Start: 01-09-2022 End: 01-09-2022 ambulatory Elda Schwerer Other [employer] Other Start: 01-09-2022 Telephone encounter Elda Schwerer [facility] [place] Start: 12-18-2021 ambulatory [employer] Daphne Bryan Samantha y: Start: 12-11-2021 End: 12-11-2021 ambulatory Elda Schwerer Other [employer] Other Start: 12-11-2021 Telephone encounter Elda Schwerer [facility] [place] Start: 12-10-2021 End: 12-10-2021 ambulatory Reynaldo Trejo Other [employer] Other Start: 12-10-2021 Telephone encounter [facility]aldo [facility] Start: 12-03-2021 End: 12-03-2021 ambulatory Elda Schwerer Other [employer] Other Start: 12-03-2021 Telephone encounter Elda Schwerer [facility] [place] Start: 11-18-2021 End: 11-18-2021 ambulatory Kamrosa Jason Other [employer] Other Start: 11-18-2021 Telephone encounter Wes Jason [facility] Start: 11-05-2021 End: 11-05-2021 ambulatory Reynaldo Trejo Other [employer] Other Start: 11-05-2021 Follow-up encounter Reynaldo Trejo [facility] Start: 11-05-2021 Office outpatient vi sit 25 minutes Elda Schwerer [facility] [place] Start: 10-22-2021 End: 10-22-2021 ambulatory Marva Hunt Other [employer] Other Start: 10-22-2021 Telephone encounter Marva Hunt [facility] Start: 10-03-2021 End: 10-03-2021 ambulatory Elda Schwerer Other [employer] Other Start: 10-03-2021 Telephone encounter Elda Schwerer [facility] [place] Start: 10-01-[address] Martines And ana Sosa Facility: Start: 09-25-2021 End: 09-25-2021 ambulatory Laquita Medina Other [employer] Other Start: 09-25-2021 Office outpatient vi sit 15 minutes Essam Elrahel [facility] Start: 09-05-2021 End: 09-05-2021 ambulatory Elda Schwerer Other [employer] Other Start: 09-05-2021 Telephone encounter Elda Schwerer [facility] [place] Start: 08-16-2021 Telephone encounter Elda Schwerer [facility] [place] Start: 08-02-2021 Telephone encounter Elda Schwerer [facility] [place] Start: 07-31-2021 Telephone encounter Elda Schwerer [facility] [place] Start: 07-25-2021 Office outpatient vi sit 25 minutes Elda Lynnerer [facility] [place] Start: 07-11-2021 Follow-up encounter [facility] Start: 07-10-2021 Office outpatient vi sit 15 minutes Yuan Romeo [facility] Start: 07-10-2021 Telephone encounter Elda Lynnmimi [facility] [place] Start: 08-03-2018 End: 08-04-2018 Patient encounter ANUSHA BARBER Facility:[place] Start: 05-27-2018 End: 06-12-2018 Patient encounter ITALO ANN [facility] Start: 04-08-2018 End: 04-15-2018 Patient encounter ITALO ANN [facility] Start: 01-04-2018 End: 01-08-2018 Patient encounter ITALO ANN [facility] Start: 12-22-2017 End: 12-22-2017 Patient encounter ANUSHA BARBER Facility:[facility] Start: 07-21-2017 End: 07-27-2017 Patient encounter ITALO ANN [facility] Start: 06-30-2017 End: 07-07-2017 Patient encounter ITALO ANN [facility] Start: 06-17-2017 End: 06-28-2017 Patient encounter TROY DHILLON Facility:[facility] Echocardiogram normal [facility]a E [facility]rer [facility] Work Phone: Imaging result normal Elda E Schwerer Work Phone: [facility] 250 DO Work Phone: Procedures Date Procedure [...] TO MG FOR LOW K Danika Harrell [facility] Work Phone: Start: 01-05-2025 Blood count complete auto&auto difrntl wbc Danika Harrell [facility] Work Phone: Start: 01-05-2025 Rhythm ecg 1-3 leads w/interpretation & report Unknown Provider Result Start: 01-05-2025 Echo tthrc r-t 2d w/wom-mode compl spec&colr d Danika Harrell [facility] Work Phone: Start: 01-05-2025 Urinalysis microscopic only Danika Harrell [facility] Work Phone: Start: 01-05-2025 Urnls dip stick/tabl et rgnt auto w/o microscopy Danika Harrell [facility] Work Phone: Start: 01-05-2025 Radiologic exam ches t 2 views Danika Harrell [facility] Work Phone: Start: 01-05-2025 Fluoroscopy during operation Estrella Bryan MD Work Phone: Start: 01-05-2025 Rhythm ecg 1-3 leads w/interpretation & report Unknown Provider Result Start: 01-05-2025 GLUCOSE, WHOLE BLOOD Ry payal Bryan MD Work Phone: Start: 01-05-2025 Ecg routine ecg w/le ast 12 lds w/i&r Corinne Gunter [facility] Start: 11-14-2024 Cell count misc body fluids [...] Work Phone: Start: 03-19-2023 POCT GLUCOSE BLOOD Mendle Barber MD Work Phone: Start: 03-19-2023 Level [...] End: 07-09-2022 Triamcinolone acet inj NOS Anusha goldamn MD Start: 05-12-2022 End: 05-12-2022 Arthrocentesis aspir&/inj [...] (Diabetes, CKD 3-4, OR last GFR 15-59) [facility] Start: 06-19-2025 Influenza [facility] Start: 04-11-2025 Bacteria identified in Urine by Culture Urine Culture [facility] Start: 04-11-2025 Urine culture [facility] Start: 03-17-2025 End: 03-17-2025 Patient encounter procedure [facility] Start: 03-14-2025 End: 03-14-2025 Patient encounter procedure 03/14/2025 3:00 PM EDT [facility] [address] [place] [id number] Daphney Constantino S, AUD [address] [facility] [place] [address] [facility] Start: 01-18-2025 End: 01-18-2025 Patient encounter procedure 01/18/2025 10:20 AM EDT Office Visit [facility] [address] [facility] [address] [place] [id number] Leah Barrera MD [address] [facility] [address] [place] [address] Arrived [facility] Comment on above: Arrived Start: 10-19-2024 Annual Wellness Visi t (Medicare Advantage) Annual Wellness Visit (Medicare Advantage) [facility] Start: 06-19-2024 COVID-19 Vaccine ( season) COVID-19 Vaccine ( season) [facility] Start: 05-25-2024 [facility] [place] Work Phone: Start: 05-25-2024 C reactive protein [Mass/volume] in Serum or Plasma C-Reactive Protein ([id number]), Added on: [facility] Start: 03-25-2024 Falls Risk Assessment Falls Risk Ass essment [facility] Start: 03-21-2024 Hypertension/CHF/CAD Annual BMP Blood Test Hypertension/CHF/CAD Annual BMP Blood Test [facility] Start: 10-05-2023 Falls Risk Assessment Falls Risk Ass essment [facility] Start: 10-04-2023 Hypertension/CHF/CAD Annual BMP Blood Test Hypertension/CHF/CAD Annual BMP Blood Test [facility] Start: 09-25-2023 FUV, Provider: Luis Castanon, Status: Pen, Time: 11:20 AM FUV, Provider: Luis Castanon, Status: Pen, Time: 11:20 AM [facility] [employer] 250 DO Work Phone: Start: 06-29-2023 C reactive protein [Mass/volume] in Serum or Plasma C-Reactive Protein, Quant ([id number]), Ordered on: [facility] Start: 06-29-2023 Erythrocyte sedimentation rate Sedimentation Rate-Westergren ([id number]), Ordered on: [facility] Start: 06-29-2023 CBC With Differential/Platelet ([id number]), Ordered on: [facility] Start: 06-19-2023 Hemoglobin A1c measurement Diabetes: Hemoglobin A1C [facility] Start: 03-17-2023 Aspiration of knee, Left (), Added on: [facility] Start: 09-24-2022 FUV, Provider: Luis Castanon, Status: Pen, Time: 2:30 PM [facility] [employer] 250 DO Work Phone: Start: 09-22-2022 Adolescent depressio n screening assessment Depression Screening Renate Petta Start: 09-22-2022 Hepatitis C screening Hepatitis C Sc reening Renate Petta Start: 09-22-2022 Lipid panel Cholesterol Sc reening (Lipid Panel) [facility] Start: 09-22-2022 Medicare Annual Wellness Visit Medicare Annual Wellness Visit [facility] Start: 09-22-2022 Screening for malign ant neoplasm of breast Breast Cancer Screening [facility] Start: 09-22-2022 Screening for malign ant neoplasm of colon Colorectal Cancer Screening: Colonoscopy [facility] Start: 09-22-2022 Screening for osteoporosis Osteoporosis Screening (Bone Density Screening) [facility] Start: 09-22-2022 Social Influencers o f Health Screening Social Influencers of Health Screening [facility] Start: 09-19-2022 Patient referral Referrals: DME LTKA Rev [facility] [place] Start: 05-27-2022 End: 05-27-2022 Emergency department patient visit Departed Emergency [facility] Start: 05-13-2022 [facility] [place] Start: 09-25-2021 [facility] Work Phone: Start: 09-18-2021 [facility] Work Phone: Start: 03-21-2021 COVID-19 Vaccine (3 - Booster for Pfizer series) COVID-19 Vaccine (3 - Booster for Pfizer series) [facility] Start: 03-21-2021 COVID-19 Vaccine (3 - Pfizer series) COVID-19 Vaccine (3 - Pfizer series) [facility] Start: 2015 Respiratory Syncytia l Virus (RSV) or age 60 yrs+ (1 - Risk 60-74 years 1-dose series) Respiratory Syncytial Virus (RSV) or age 60 yrs+ (1 - Risk 60-74 years 1-dose series) [facility] Start: 2010 Screening for osteoporosis DEXA (modify frequency per FRAX score) [facility] Start: 2005 Shingles vaccine (1 of 2) Shingles vaccine (1 of 2) [facility] Start: 2005 Zoster vaccine hzv l junior for subcutaneous use ZOSTER (SHINGLES) VACCINE (1 of 2) [facility] Start: 2005 Zoster Vaccines (1 o f 2) Zoster Vaccines (1 of 2) [facility] Start: 2000 Screening for malign ant neoplasm of colon [facility] Start: 1995 Lipid panel LIPID SCREENING [facility] Start: 1995 Screening for malign ant neoplasm of breast [facility] Start: 1976 Screening for malign ant neoplasm of cervix CERVICAL CANCER SCREENING DISCUSSION [facility] Start: 1974 DTaP,Tdap,and Td Vaccines (1 - Tdap) DTaP,Tdap,and Td Vaccines (1 - Tdap) [facility] Start: 1974 DTaP/Tdap/Td vaccine (1 - Tdap) DTaP/Tdap/Td vaccine (1 - Tdap) [facility] Start: 1974 Third diphtheria, tetanus and acellular pertussis (DTaP) vaccination TDAP (ADULT) [facility] Start: 1974 Urine screening for protein Diabetes: Urine Protein Screening [facility] Start: 1973 Glaucoma screening Diabetic retinal exam [facility] Start: 1973 Hepatitis C screening Hepatitis C sc reen [facility] Start: 1973 Urine screening for protein Diabetic Alb to Cr ratio (uACR) test [facility] Start: 1967 Depression Screen Depression Screen [facility] Start: 1965 Diabetic foot examination Diabetic foot exam [facility] Start: 1965 Glaucoma screening Diabetes: R etinopathy Screening [facility] Start: 1965 Hemoglobin A1c measurement A1C test (Diabetic or Prediabetic) [facility] Start: 1965 Lipid panel Lipids [facility] Start: 1955 Hepatitis C screening HEPATITI S C VIRUS SCREENING [facility] Start: 1955 Medicare Annual Wellness (AWV) Medicare Annual Wellness (AWV) [facility] Start: 1955 Screening for malign ant neoplasm of colon [facility] Start: 1955 Screening for osteoporosis DEXA SCAN DISCUSSION [facility] Start: 1955 Tetanus vaccination TETANUS [facility] Comprehensive metabo lic 2000 panel - Serum or Plasma [facility] Work Phone: Crystals, Body Fluid Crystals, B tyler Fluid Lab Routine 11/14/2024 10:22 AM EST [facility] Work Phone: Culture, Anaerobic a nd Aerobic Culture, Anaerobic and Aerobic Microbiology Routine 11/14/2024 10:22 AM EST [facility] Ferritin [Mass/volum e] in Serum or Plasma [facility] Work Phone: Fungus identified in Skin by Culture [facility] Work Phone: Fungus identified in Skin by Culture [facility] Work Phone: Mycobacterium sp identified in Unspecified specimen by Organism specific culture [facility] Mycobacterium sp identified in Unspecified specimen by Organism specific culture [facility] Patient Education Urinary Tract Infection, Adult ED [facility] Work Phone: Patient referral [facility] Work Phone: Immunizations Immunization Date Immunization Notes Care Provider [facility] 08-10-2024 influenza virus vaccine, unspecified formulation Vlad Joel MD Work Phone: [facility] 08-07-2022 Fluad Quadrivalent 0 .5 ML Intramuscular Prefilled Syringe Peter Sosa Work Phone: [facility] 250 DO Work Phone: 01-24-2021 COVID-19 Vaccine Pfi zer - Documentation Purposes Only Yuan Romeo Other [facility] Comment on above: Series: 01-02-2021 COVID-19 Vaccine Pfi zer - Documentation Purposes Only Yuan Romeo Other [facility] Comment on above: Series: 08-23-2020 influenza, injectabl e, quadrivalent, preservative free Peter Sosa Work Phone: [facility] 250 DO Work Phone: 08-19-2020 influenza virus vaccine, unspecified formulation Elda E Schwerer Work Phone: [facility] 250 DO Work Phone: 08-19-2020 pneumococcal polysaccharide vaccine, 23 valent Yuan Ramsaydano Other [facility] 08-06-2020 Seasonal trivalent influenza vaccine, adjuvanted, preservative free Elda E Schwerer Work Phone: [facility] 250 DO Work Phone: 08-02-2019 Influenza, injectabl e, Madin Lindsay Canine Kidney, preservative free, quadrivalent Leda E Schwerer Work Phone: [place] [address] DO Work Phone: 08-02-2019 pneumococcal polysaccharide vaccine, 23 valent Elda E Schwerer Work Phone: [place] [address] DO Work Phone: 07-19-2019 influenza virus vaccine, unspecified formulation Elda E Schwerer Work Phone: [place] [address] DO Work Phone: 07-19-2019 influenza, seasonal, injectable Peter Sosa Work Phone: [place] [address] DO Work Phone: 07-19-2019 pneumococcal polysaccharide vaccine, 23 valent Christopher Agueda Other [facility] 07-19-2018 Influenza, injectabl e, Madin Thaxton Canine Kidney, quadrivalent with preservative Elda E Schwerer Work Phone: [place] [address] DO Work Phone: 07-19-2018 pneumococcal conjuga te vaccine, 13 valent Christopher Agueda Other [facility] 08-20-2017 influenza, injectabl e, quadrivalent, preservative free Christopher Agueda Other [facility] 12-18-2011 pneumococcal polysaccharide vaccine, 23 valent Christopher Ageuda Other [facility] Payers Date Payer Category Payer Medicare (Managed Care) MEDICARE [employer] HMO [id number] 2017 Medicaid [id number] 2008 Medicare 1959 Medicaid [id number] 1959 Medicare [id number] 2.16.840.1.302080.19 1955 Unknown [id number] 2.16.840.1.855630.3.579.2. 584 1955 Unknown [id number] 2.16.840.1.342138.3.579.2. 584 1955 Unknown [id number] 2.16.840.1.558262.3.579.2. 584 1955 Unknown [id number] 2.16.840.1.152161.3.579.2. 356 1955 Unknown [id number] 2.16.840.1.446601.3.579.2. 356 1955 Unknown [id number] 2.16.840.1.809263.3.579.2. 356 1955 Unknown [id number] 2.16.840.1.764292.3.579.2. 593 1955 Unknown [id number] 2.16.840.1.762001.3.579.2. 593 1955 Unknown [id number] 2.16.840.1.128614.3.579.2. 593 1955 Unknown [id number] 2.16.840.1.765338.3.579.2. 593 1955 Unknown [id number] 2.16.840.1.949564.3.579.2. 593 1955 Unknown [id number] 2.16.840.1.073059.3.579.2. 593 1955 Unknown [id number] 2.16.840.1.033501.3.579.2. 593 1955 Unknown [id number] 2.16.840.1.964645.3.579.2. 593 1955 Unknown [id number] 2.16.840.1.187092.3.579.2. 593 1955 Unknown [id number] 2.16.840.1.819240.3.579.2. 593 1955 Unknown [id number] 2.16.840.1.979326.3.579.2. 593 1955 Unknown [id number] 2.16.840.1.374808.3.579.2. 593 1955 Unknown [id number] 2.16.840.1.850423.3.579.2. 593 1955 Unknown [id number] 2.16.840.1.982806.3.579.2. 593 1955 Unknown [id number] 2.16.840.1.456037.3.579.2. 593 1955 Unknown [id number] 2.16.840.1.342892.3.579.2. 593 1955 Unknown [id number] 2.16.840.1.721033.3.579.2. 593 1955 Unknown [id number] 2.16.840.1.690093.3.579.2. 727 1955 Unknown [id number] 2.16.840.1.939083.3.579.2. 727 1955 Unknown [id number] 2.16.840.1.758021.3.579.2. 173 1955 Unknown [id number] 2.16.840.1.777631.3.579.2. 1259 1955 Unknown [id number] 2.16.840.1.162290.3.579.2. 1259 1955 Unknown [id number] 2.16.840.1.087480.3.579.2. 1259 1955 Unknown [id number] 2.16.840.1.163343.3.579.2. 594 1955 Unknown [id number] 2.16.840.1.492695.3.579.2. 594 1955 Unknown [id number] 2.16.840.1.058208.3.579.2. 594 1955 Unknown [id number] 2.16.840.1.706488.3.579.2. 594 1955 Unknown [id number] 2.16.840.1.646019.3.579.2. 727 Medicare [id number] Medicare [id number] 2.840.1.624615.19 Private Health Insurance [facility] [id number] Self-pay Self Pay [id number] Unknown Social History Date Type Detail Facility Start: 01-05-2025 End: 03-17-2025 No illicit drug use No illicit drug use [facility] Comment on above: 2 cups of coffee clay ly; Rarely; high school smoker; Rarely 1-2 times yea rly; Start: 01-05-2025 End: 03-17-2025 Sex Assigned At [facility] Start: 05-27-2022 End: 05-27-2022 Tobacco smoking status NHIS Ex-smoker (finding) [facility] Start: 1955 Sex Assigned At Female F [facility] History of tobacco use Current smoker [employer] History of tobacco use Cigarette Smoker [facility] Start: 10-02-2022 End: 03-19-2023 Alcohol intake Lifetime non-drinker (finding) [employer] Start: 1955 Sex Assigned At Not on file [facility] Start: 09-22-2022 End: 03-18-2023 Exposure to SARS-CoV-2 (event) Not sure [facility] [employer] Start: 03-19-2023 End: 02-03-2024 Tobacco use and exposure Smokeless tobacco non-user [employer] Start: 03-23-2024 End: 06-06-2024 Tobacco smoking status NHIS Unknown if ever smoked [facility] Start: 03-23-2024 Alcohol intake Alcohol Use Details [facility] Start: 11-09-2019 Sexual Orientation Straight or heterosexual [facility] Start: 09-25-2023 Sexual Orientation Choose not to dis close [facility] Start: 10-27-2024 End: 03-03-2025 Sex Female (finding) [facility] Start: 02-03-2024 End: 01-02-2025 Tobacco smoking status NHIS Never smoked tobacco [facility] Start: 01-05-2025 End: 03-17-2025 Alcoholic beverage intake Current drinker of alcohol (finding) [facility] Has the [employer], [email or web address], or water [employer] threatened to shut off services in your home in past 12Mo No [facility] How often to you hav e a drink containing alcohol? Monthly or less [facility] How many standard dr inks containing alcohol do you have on a typical day? 1 or 2 [facility] How often do you hav e 6 or more drinks on 1 occasion? Never [facility] (I/We) worried [place] er (my/our) food would run out before (I/we) got money to buy more. Never true Bon [facility] In the past 12 month s, has lack of transportation kept you from medical appointments or from getting medications? No [facility] Start: 01-02-2025 Alcohol Comment Ocassionally [facility] Start: 02-03-2024 Alcohol Comment Occasionlly [facility] Medical Equipment Procedure Code Equipment Code Equipment Origin al Text Equipment Identifier Dates Cps Artcsurf 16m m Lt 6-9 Ef - Sn/A - [id number])N/A, [id number] FDA Start: 10-02-2022 Asf Cps 18mm Ve L 6-9 - Sn/A - [id number]/A , [id number] FDA Start: 03-19-2023 Functional Status Date Assessment Result Facility [facility] Clinical Notes 07-10-2021 to 04-28-2025 Leonel Wharton [...] TKAand 2021 L TKRevsion (Dr. Barber in [place]). Had a cat scratch infection in 2022 [...] rule that out 1st. Vlad Joel M.D. Kinder Teacher Acquisition Analyst Adult Reconstructive Surgery Service Department of Orthopaedics [facility] documented in this encounter [facility] 03-17-2025 History of Present illness Narrative Subjective Patient ID: Renuka Graham is a 69 y.o. female who presents for Thyroid Nodule (Follow up ultrasound [facility] 01/24/25 ) and Ear Problem (Audio 03/14/25) Audio shows delfino moderate to severe SNHL and normal tymps. Pt requests referral to Dr Chase. Previously followed by in [place]. US shows a [id number] RT nodule compared to [id number] one year ago. 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 ([facility]) 10/02/2022 LPRD (laryngopharyngeal reflux disease) 02/03/2024 Morbid obesity ([facility] 03/03/2013 Multinodular goiter ([facility]) 02/03/2024 Obesity, Class III, BMI 40-49.9 (morbid obesity) ([facility]) 06/30/2017 Obstructive sleep apnea syndrome 06/05/2016 Primary osteoarthritis of left hip 02/03/2024 Osteoarthritis of knee 02/03/2024 Pulmonary HTN ([facility]) 07/06/2017 Restrictive lung disease 07/06/2017 Sciatica 02/03/2024 Thrombophlebitis 02/03/2024 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 ([facility]) 02/03/2024 Thrombophlebitis of left leg ([facility]) 02/03/2024 Urinary tract infection 02/03/2024 Abdominal infection ([facility]) 02/03/2024 Viral syndrome 02/03/2024 Diabetes mellitus ([facility]) 01/18/2025 Essential hypertension ([facility]) 02/18/2012 Fibromyalgia 07/06/2017 Resolved Ambulatory Problems Diagnosis Date Noted No Resolved Ambulatory Problems Past Medical History: Diagnosis Date Anxiety Asthma CAD (coronary artery disease) ([facility]) CHF (congestive heart failure) ([facility]) Diabetes 1.5, 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[facility]) GERD (gastroesophageal reflux disease) Hoarseness HTN (hypertension) ([facility]) JEREMY (obstructive sleep apnea) Pulmonary hypertension ([facility]) PVD (peripheral vascular disease) ([facility] Seasonal allergies Stage 4 chronic kidney disease [...] prn if stable. documented in this encounter [facility] 03-14-2025 History of Present illness Narrative History: [...] Dr. Barrera 03-17-2025 documented in this encounter [facility] 01-18-2025 History of Present illness Narrative Subjective Patient ID: Renuak Graham is a 69 y.o. female who presents for Swollen Glands Pt reports her glands were swollen, but have gone down now. Also c/o a 1 yr h/o delfino ear fullness. Family History Adopted: Yes Active Ambulatory Problems Diagnosis Date Noted Thyroid nodule ([facility]) 02/03/2024 LAD (lymphadenopathy) of left cervical region [...] (CMS/HCC) 09/23/2023 COPD (chronic obstructive pulmonary disease) ([facility]) 03/17/2023 Atherosclerosis of artery 02/03/2024 Coronary atherosclerosis ([facility]) 03/03/2013 Cramps of left lower extremity [...] to other internal joint prosthesis, initial encounter ([facility]) 03/21/2023 Iron deficiency anemia 02/03/2024 Lingual tonsil hypertrophy 02/03/2024 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 ([facility]) 10/02/2022 LPRD (laryngopharyngeal reflux disease) 02/03/2024 Morbid obesity ([facility] 03/03/2013 Multinodular goiter ([facility]) 02/03/2024 Obesity, Class III, BMI 40-49.9 (morbid obesity) ([facility]) 06/30/2017 Obstructive sleep apnea syndrome 06/05/2016 Primary osteoarthritis of left hip 02/03/2024 Osteoarthritis of knee 02/03/2024 Pulmonary HTN ([facility]) 07/06/2017 Restrictive lung disease 07/06/2017 Sciatica 02/03/2024 Thrombophlebitis 02/03/2024 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 ([facility]) 02/03/2024 Thrombophlebitis of left leg ([facility] 02/03/2024 Urinary tract infection 02/03/2024 Abdominal infection ([facility]) 02/03/2024 Viral syndrome 02/03/2024 Diabetes mellitus ([facility]) 01/18/2025 Essential hypertension ([facility]) 02/18/2012 Fibromyalgia 07/06/2017 Resolved Ambulatory Problems Diagnosis Date Noted No Resolved Ambulatory Problems Past Medical History: Diagnosis Date Anxiety Asthma CAD (coronary artery disease) ([facility]) CHF (congestive heart failure) ([facility]) Diabetes 1.5, 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[facility]) GERD (gastroesophageal reflux disease) Hoarseness HTN (hypertension) ([facility]) JEREMY (obstructive sleep apnea) Pulmonary hypertension ([facility]) PVD (peripheral vascular disease) [facility]) Seasonal allergies Stage 4 chronic kidney disease ([facility]) Vitamin D deficiency Past Surgical History: Procedure [...] F/U. Due for thyroid US. Schedule at [facility] documented in this encounter [facility] 01-06-2025 History of Present illness Narrative Progress [...] plan. Estrella Bryan MD Orthopaedic Surgeon Orthopaedic [facility] 01/06/2025 11:41 AM Patient A&O x4, calm, [...] Chemistry: No results found for: PHART , DUI2PLR , PO2ART , P7WRFCSS , NBV8DUO , PBEA , NBEA VITALS Pulse: 51 [...] arrousable, assessment and vitals initiated, patient instructed electronic die maker light use and available to patient, patient [...] for the anesthesia. Patient was contacted by fiction and nonfiction writer prose. Patient does have a tailing hand (Dr Castanon), but it has been more [...] me back. documented in this encounter [facility] 01-05-2025 Hospital Discharge instructions Kaylee Esqueda RN [...] most local grocery stores, pharmacies, and chain [employer]-stores. If you have any questions about your diet or nutrition, call the hospital and ask for the dietitian. General diet documented in this encounter [facility] 06-01-2024 Note Progress Note-Darcie joshi Patient: RENUKA [...] Refills(s) 0, Prophylaxis fluticasone 0.05 mg/inh Nasal [place]: 2 spray(s), Nasal, Daily, Refill(s) 0, Allergy [...] tab, Oral, Daily fluticasone 0.05 mg/inh Nasal [place] 2 spray(s), Nasal, Daily gabapentin 300 mg [...] CHF (congestive heart failure) / SNOMED CT 35319071 / Confirmed COPD (chronic obstructive pulmonary disease) / SNOMED CT 40220877 / Confirmed Hypertension / SNOMED CT 0671665751 / Confirmed Kidney failure / SNOMED CT 12508950 / Confirmed Physical Examination Vital Signs 06/01/2024 [...] Heart Rate Mon (more content not included)... [facility] Comment on above: Result Comment: Elec tronically [...] blood. Document Released: 05/19/2005 Document Re-Released: 03/29/2007 [facility] Patient Information ?2009 [employer]. Colonoscopy Care After Surgery Please read the [...] bowel contents c (more content not included)... [facility] 06-01-2024 Note Endoscopic Procedure Report - Other Patient: RENUKA GRAHAM Age: 68 years Sex: Female : 1955 Associated Diagnoses: None Author: Glen Bejarano MD Pre-Procedure Procedure Date 06/01/2024 13:10:00 . Procedure Type: Colonoscopy. Procedure provider Performed by Glen Bejarano MD. Current history and physical Documented on chart. Reviewed. EGD (esophagogastroduodenoscopic) electrohydraulic lithotripsy of bezoar in stomach (9133579504) on 06/15/2019 at 63 Years. Colonoscopy ([id number]) on 08/02/2018 at 63 Years. Appendicectomy (714132609). Tonsillectomy (986240764). Gastric bypass (4825737033). Both knees (12526213). Tendonitis of left ankle (159518311161173). Caesarean section ().. Past Medical History No active or resolved past medical history items have been selected or recorded.. Family History Patient was adopted. History is unknown.. Procedure History EGD (esophagogastroduodenoscopic) electrohydraulic lithotripsy of bezoar in stomach (7857200467) on 06/15/2019 at 63 Years. Colonoscopy ([id number]) on 08/02/2018 at 63 Years. Appendicectomy (494338873). Tonsillectomy (722200469). Gastric bypass (3354550802). Both knees (97408751). Tendonitis of left ankle (904262281900857). Caesarean section ().. Colorectal neoplasm risk assessment [...] QID, # 120 tab(s), Refills(s) 0, Pharmacy: [facility] Documented Medications Documented Fiber Tabs: 1 [...] Refills(s) 0, Prophylaxis fluticasone 0.05 mg/inh Nasal [place]: 2 spray(s), Nasal, Daily, Refill(s) 0, Allergy [...] [id number]_video_[id number]. [id number]_video_[id number]___15 (more content not included)... [facility] Comment on above: Result Comment: Elec tronically Signed By: Glen Bejarano MD\.br\Date and Time Signed: 06/01/24 13:11 EDT Other Comment: Jessica ng Attachment - attachment storage system not supported [id number] Can be viewed in source system Missing Attachment - attachment storage system not supported [id number] Can be viewed in source system Missing Attachment - attachment storage system not supported 8431374 Can be viewed in source system Missing Attachment - attachment storage system not supported 1517552 Can be viewed in source system Missing Attachment - attachment storage system not supported 0547350 Can be viewed in source system Missing Attachment - attachment storage system not supported 5973821 Can be viewed in source system Missing Attachment - attachment storage system not supported 0251628 Can be viewed in source system Missing Attachment - attachment storage system not supported [id number] Can be viewed in source system 06-01-2024 [...] examined esophagus. Empiric dilation with Delcid 54 Maldivian was done, no mucosal disruption was noted [...] examined esophagus. Empiric dilation with Delcid 54 Maldivian was done, no mucosal disruption was noted [...] results, follow-up in GI clinic next available [facility] Comment on above: Result Comment: Elec trosampsonally Signed By: Darci BRYANT, Glen Ta\.br\Date and Time Signed: 06/01/24 12:35 EDT Other Comment: Jessica batres Attachment - attachment storage system not supported [id number] Can be viewed in source system Missing Attachment - attachment storage system not supported 9252598 Can be viewed in source system Missing Attachment - attachment storage system not supported 3537686 Can be viewed in source system Missing Attachment - attachment storage system not supported 0886079 Can be viewed in source system Missing Attachment - attachment storage system not supported 4191413 Can be viewed in source system Missing Attachment - attachment storage system not supported 9210794 Can be viewed in source system Missing Attachment - attachment storage system not supported 4199930 Can be viewed in source system Missing Attachment - attachment storage system not supported 3413000 Can be viewed in source system 06-01-2024 Note Progress Note-Darcie joshi Patient: RENUKA RGAHAM Age: 68 years Sex: Female : 1955 [...] # 120 tab(s), Refills(s) 0, Pharmacy: [facility] Documented Medications Documented Fiber Tabs: 1 [...] Refills(s) 0, Prophylaxis fluticasone 0.05 mg/inh Nasal [place]: 2 spray(s), Nasal, Daily, Refill(s) 0, Allergy [...] tab, Oral, Daily fluticasone 0.05 mg/inh Nasal [place] 2 spray(s), Nasal, Daily gabapentin 300 mg [...] CHF (congestive heart failure) / SNOMED CT 70100569 / Confirmed COPD (chronic obstructive pulmonary disease) / SNOMED CT 05743619 / Confirmed Hypertension / SNOMED CT 0080745108 / Confirmed Kidney failure / SNOMED CT 52971091 / Confirmed, Active Problems (4) CHF (congestive heart failure) COPD (chronic obstructive pulmonary disease) Hypertension Kidney failure Histories Past Medical History: No active or resolved past medical history items have been selected or recorded. Family History: Patient was adopted. History is unknown. Procedure history: EGD (esophagogastroduodenoscopic) electrohydr (more content not included)... [facility] Comment on above: Result Comment: Elec tronically Signed By: Vlad Loera DO\.br\Date and Time Signed: 06/01/24 11:29 EDT 11-03-2023 Evaluation note Encounter Date Diagnosis Assessment Notes Oct, Asthma, moderate persistent (ICD-10 - J45.40) [employer] Other 09-19-2023 Evaluation note* Encounter Date Diagnosis Assessment Notes Treatment Notes Treatment Clinical Notes Jun, Asthma, moderate persistent (ICD-10 - J45.40) Jun, Morbid obesity (ICD-10 - E66.01) Jun, JEREMY (obstructive sleep apnea) (ICD-10 - G47.33) Jun, Allergic rhinitis (ICD-10 - J30.9) Jun, GERD (gastroesophageal reflux disease) (ICD-10 - K21.9) [employer] Other 06-07-2023 History of Present illness Narrative* Jocelyn Muller RN - 03/25/2023 2:44 PM EDT Verbal report called and provided to receiving nurse, MARIBELL Alford at [facility]. Patient's current status and most recent vital [...] Pt. met goals for discharge to a snf facility. Discussed with thepatient the last pain medication and when the next dose is due. Pt. received written discharge instruction packet to be taken to the snf facility. Pt. is discharged per the general [...] NOTE Patient Name: Renuka Graham MR #: [id number] Hospital Day: 7 Assessment and Plan: 1. [...] Given her debility she will discharge to [facility] to receive meropenem 2 g every 12 hours for 6 weeks. We will follow-up with her at that time and hopefully transition her to a lengthy course of oral therapy. ECF Nursing Instructions: 1)[facility] 2)Qmon CBC,SR,Creat,CRP, fax to Dr. Bryan [phone] 3)IV ATB for 42 days 4)Call Dr. [...] intravenous Every 8 hours 03/24/23 2341 05/05/23 2838 Subjective/Objective: Comfortable Review of Systems: I have [...] Care 2)Qmon CBC,SR,Creat,CRP, fax to Dr. Bryan [phone] 3)IV ATB for 42 days 4)Call Dr. [...] met and the pt is cleared by [employer]. * Nik Cates RN - 03/25/2023 9:28 AM EDT Call received from Addi at [facility]. Discharge orders can be faxed to [phone]. Report [phone]. Addi indicated she was updated yesterday that transport will be around noon. * Evelyn Jose MD - 03/25/2023 8:16 AM EDT [address] [place] [address] Query Response Note PATIENT: RENUKA GRAHAM : 1955 ADMIT DATE: 03/21/2023 12:44 PM DISCH DATE: RESPONDING PROVIDER #: [id number] CDI RESPONSE TEXT: See PN CDI QUERY [...] Echo-Mildly reduced LV systolic function -02/24/17 Lexiscan S[facility]IOR [facility] DATABASE DEVELOPER-mildly diminished LV systolic function with an EF of 48% -03/05/17-Non obstructive 3 vessel CAD -03/[address] Dee Dee Sparrow: -Congestive Heart Failure -Chronic Right-Sided CHF with mild LV Dysfunction -Mild Pulmonary HTN -on Diuretics. Treatment: [facility] MAR: -03/20 po Bumex BID Hod if, SBP <110. Risk Factors: H&P/PN: -67 yrs. of Age -s/p Left Knee Polyexchange, I&D for periprostatic infection -CHF -right-sided w/Mild LV Dysfunction -Pum. HTN -HTN -CKD Thank you, Chelsea Bearden RN, CHIEF ACCOUNTANT, CDI. cell: [phone]. Options provided: -- Respond - Create new [...] opiates, and antibiotics to surgical service. Disposition: [facility] facility. Subjective Patient reports pain is currently [...] AMADO received a call from Addi at [facility] and they received precert. Facility will planto [...] AMADO received a call from Cindy at [facility] inquiring possible duration of IV ATB therapy. AMADO informed Cindy that the final determination will be determined per the [place] physician. Cindy was informed that it would [...] PM EDT AMADO spoke to Rosetta at [facility] and she confirmed the facility is still awaiting the precert from [facility]. Facility does request a repeat covid test day of discharge. AMADO will update the patient and also plan to complete a HENS and place in the discharge folder. * Amanda Gorman PTA - 03/24/2023 1:37 PM EDT [facility] Physical Therapy Treatment PT Discharge Recommendations: [facility] facility placement Distance Ambulated (ft): 50 Device: [...] PT POC until patient is d/c from [facility]. 03/24/23 1337 General Family/Caregiver Present No [...] well Medical Staff Made Aware Yes Comments [facility] notified that pt has used bathroom Plan PT Plan Skilled PT PT Discharge Recommendations [facility] facility placement Goals/Education Encounter Problems Encounter Problems [...] - 03/24/2023 11:13 AM EDT [facility] Physical Therapy Treatment PT Discharge Recommendations: [facility] facility placement Distance Ambulated (ft): 50 Device: [...] PT POC until patient is d/c from [facility]. 03/24/23 1113 General Family/Caregiver Present [...] PT Plan Skilled PT PT Discharge Recommendations [facility] facility placement Goals/Education Encounter Problems Encounter Problems [...] service. Disposition: Planning to go to a snf facility. Subjective Patient reports pain is currently [...] Intake/Output Summary (Last 24 hours) at 03/24/2023 0756 Last data filed at 03/23/20232010 Gross per [...] Call received from Addi in admissions at [facility]. Precert is still pending. Addi inquired if pt is wearing a CPAP. Per RT-pt is non-compliant and does not wear CPAP. * Renuka Mccabe PT - 03/23/2023 12:37 PM EDT [facility] Physical Therapy Treatment PT Discharge Recommendations: [facility] facility placement Distance Ambulated (ft): 50 Device: [...] CM made OB call to Сергей at [place]-spoke to Addi in admissions- precert is still pending at this time. She has forwarded updated notes and will be in touch as soon as she hears anything. CM will continue to follow. * Renuka Smithfei, PT - 03/23/2023 9:07 AM EDT [facility] Physical Therapy Treatment PT Discharge Recommendations: [facility] facility placement Distance Ambulated (ft): 45 Device: [...] Plan for discharge to Subacute Rehab Facility ([facility] or [facility]) when cleared by PT and medically stable * Julia Meredith RN - 03/23/2023 7:26 AM EDT AMADO has sent updated PT and progress notes to С[facility] via manual efax- [phone]-witha note checking on status of precert. CM [...] Disposition: Patient planning to go to a snf facility. Subjective Patient reports pain is currently [...] NOTE Patient Name: Renuka Graham MR #: [id number] Hospital Day: 4 Assessment and Plan: 1. [...] 8.6 mg 1 tablet oral BID Valeriano qSuires MD 8.6 mg at 03/22/23 1003 sodium [...] - 03/22/2023 11:25 AM EDT [facility] Physical Therapy Treatment PT Discharge Recommendations: [facility] facility placement Distance Ambulated (ft): 35 Device: [...] Plan for discharge to Subacute Rehab Facility ([facility] or [facility]) when cleared by PT and medically stable * Amanda Horvath, PT - 03/22/2023 10:05 AM EDT [facility] Physical Therapy Treatment PT Discharge Recommendations: [facility] facility placement Distance Ambulated (ft): 30 Device: [...] IVFs, pulse oximetry, and supplemental oxygen for LVOtU4muee than 90%. Coronary Artery Disease ( I [...] Echo-Mildly reduced LV systolic function 02/24/17 [employer] SENIOR ORACLE DATABASE DEVELOPER-mildly diminished LV systolic function with an EF [...] NOTE Patient Name: Renuka Graham MR #: [id number] Hospital Day: 3 Assessment and Plan: 1. [...] - 03/21/2023 12:55 PM EDT [facility] Physical Therapy Treatment PT Discharge Recommendations: [facility] facility placement Distance Ambulated (ft): 0, 30feet [...] AM EDT OB call to Сергей at [place] [phone]. NN spoke with [facility]. Per [facility] admissions staff are out of the office until Thursday. CM will continue to follow. * Yasmin Beck PT - 03/21/2023 9:57 AM EDT [facility] Physical Therapy Treatment PT Discharge Recommendations: [facility] facility placement Distance Ambulated (ft): 30 Device: [...] - 03/21/2023 8:52 AM EDT [facility] Case Management Rounding Note Patient Renuka Graham [...] Plan for discharge to Subacute Rehab Facility ([facility] or [facility]) when cleared by PT and medically stable [...] Echo-Mildly reduced LV systolic function 02/24/17 [employer] SENIOR ORACLE DATABASE DEVELOPER-mildly diminished LV systolic function with an EF [...] - 03/20/2023 2:03 PM EDT Rosetta from [facility] is requesting todays clinicals and manually faxed to her [employer] of [phone] * Haley He PTA - 03/20/2023 12:25 PM EDT [facility] Physical Therapy Treatment PT Discharge Recommendations: [facility] facility placement Distance Ambulated (ft): 30 in [...] 03/20/2023 10:31 AM EDT Rosetta called from [facility] and she received the updated clinicals sent this morning andshe will begin precert. Patient updated. * Debbie Kapadia RN - 03/20/2023 9:56 AM EDT Called Rosetta at [facility] she is reviewing the referral now and faxed this mornings progress notes and PT note to her at [phone] * Haley He PTA - 03/20/2023 9:37 AM EDT [facility] Physical Therapy Treatment PT Discharge Recommendations: [facility] facility placement Distance Ambulated (ft): 30 Device: [...] Date/Time User Outcome 03/20/23 1052 Haley He COMPUTING SYSTEMS MECHANIC Progressing Goal: Pt will ambulate x150 ft with SBA/FWW Dates: Start: 03/19/23 Expected End: 03/20/23 Outcomes Date/Time User Outcome 03/20/23 1052 Haley He COMPUTING SYSTEMS MECHANIC Progressing Goal: Pt will ascend/descend stairs with CGA/LRAD Dates: Start: 03/19/23 Expected End: 03/20/23 Outcomes Date/Time User Outcome 03/19/23 1939 [facility] Miller, PT Progressing Goal: Pt will indicate understanding of knee protocol HEP to begin POD1 Dates: Start: 03/19/23 Expected End: 03/20/23 Outcomes Date/Time User Outcome 03/20/23 1052 Haley eH PTA Progressing Encounter Problems (Resolved) There are [...] Plan for discharge to Subacute Rehab Facility ([facility] or [facility]) when cleared by PT and medically stable [...] Echo-Mildly reduced LV systolic function 02/24/17 [employer] 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 Hypertension ( I [...] indicated. Avoidance of any additional nephrotoxins including LAAR II inhibitors such as Mobic ( Meloxicam [...] and situation RESULTS : Hemoglobin A1c Order: [id number] Status: Final result Visible to patient: Yes (not seen) 0 Result Notes Component Ref Range & Units 1 d ago 6 mo ago Hemoglobin A1C <=5.6 % 5.7 High 5.6 CM Mean Bld Glu Estim. mg/dL 117 114 Resulting Agency [facility] Narrative Performed by: [facility] HbA1c values of 5.7-6.4 percent indicate an [...] withoutdifficulty. Patient plans to discharge to a snf facility. * Palmira Miller PT - 03/19/2023 6:32 PM EDT [facility] Physical Therapy Evaluation PT Discharge Recommendations: [facility] facility placement Distance Ambulated (ft): 30 Device: [...] loosening of internal left knee prosthetic joint ([facility]) Mechanical loosening of internal left knee prosthetic joint, subsequent encounter S/P left knee surgery Past Medical History: Diagnosis Date Anemia Arthritis Asthma CHF (congestive heart failure) ([facility]) Chronic kidney disease CKD 2/3 COPD (chronic obstructive pulmonary disease) ([facility]) Dental disease full dentures Diabetes mellitus ([facility]) DVT of leg (deep venous thrombosis) ([facility]) 2020 left leg GERD (gastroesophageal reflux disease) [...] 1-2 times per day PT Discharge Recommendations [facility] facility placement PT - Evaluation Status Complete [...] PM EDT Followed up with Сергей at [place]. [phone] . Admissions does have a skilled bed And obtained updated fax number and refaxed referral to [phone]. * Debbie Kapadia RN - 03/19/2023 5:19 PM EDT 03/19/23 1718 Discharge Planning Living Arrangements Children Support Systems Children Assistance Needed skilled care Type of Residence Private residence Patient expects to be discharged to: SNF Does the patient need discharge transport arranged? No Follow Up Needs/Requests none Initial Transition Plan Initial Transition Plan Long-Term Facility Back up Transition Plan Back up Transition plan Long-Term Facility Patient is planning to go to SNF for Rehab [facility] in [place]. Will place a referral. Son to transport [...] requesting rehab at discharge documented in this encounterHaven [facility]al [facility] Of Eastern [id number] Consult note* Colt Bryan MD - 03/20/2023 3:58 PM EDTAssociated Order(s): IP CONSULT TO INFECTIOUS DISEASES Images from the original note were not included. INFECTIOUS DISEASES CONSULTATION NOTE Patient Name: Renuka Graham Admit Date: [id number] MR #: [id number] : 1955 Hospital Day: 2 Date of [...] progressively worsened. She went to go to buddhist on Thursday and pain was severe. 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 Colt Bryan MD [facility] [id number] Consult note* Colt Bryan MD - 03/20/2023 3:58 PM EDTAssociated Order(s): IP CONSULT TO INFECTIOUS DISEASES Images from the original note were not included. INFECTIOUS DISEASES CONSULTATION NOTE Patient Name: Renuka Graham Admit Date: [id number] MR #: [id number] : 1955 Hospital Day: 2 Date of [...] progressively worsened. She went to go to buddhist on Thursday and pain was severe. 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 [employer] Representative Lot #: [id number] * Jessica Briseno RN - 03/20/2023 10:[address] Ortega, patient's grey goods marker, has okayed patient for a PICC line. 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 Hypertension ( I [...] 2017 Cardiac clearance from 09/25/22; Dr. 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-mildly diminished LV systolic function with an EF [...] 03/19/2023 GLUCOSE 97 03/19/2023 documented in this encounterHaven Behavioral Hospital Of Eastern [id number] Hospital course Narrative* Debbie Kapadia RN - 03/20/2023 2:15 PM EDT -use over the counter stool softeners to prevent constipation Prescription OXYCODONE * Meoñ Candelario RN - 03/20/2023 11:05 AM EDT [...] SHEETS Contact Surgeon's office with any questions/concerns [phone] -Plasma Flow SCD'S Compression leg pumps on Bilateral Legs for 20 hours per day x 2 weeks for additional DVT prevention- SEE SURGEONS INSTRUCTION SHEETS FOR DIRECTIONS -use over the counter stool softeners to prevent constipation - Prevena wound vac - Patient to call office and schedule an appointment to have prevena removed on03/27/2023- [phone]- per conversation with Dr. Santos- if patient is unable to make this appointment due to transportation issues- patient to follow instructions below- patient is aware that it isthe preference for prevena to be removed in office -When Prevena Wound Vac lifespan alarms, please remove the wound vac dressing. Take a photo of the incision and email : [email or web address]. Then apply Optifoam dressing that is in your discharge folder. -Call for a 2-3 week follow up appointment and any questions or concerns. Verify Office location when scheduling. [phone] * Portia Sue RN - 03/18/2023 2:28 [...] prior to your surgery. Check in at entry level receptionist desk [address] [place] [address]. If Outpatient, these additional instructions apply: An adult must stay with you the whole time you are here and drive you home. An adult must stay withyou at home for 24 hours due to Anesthesia. If you have JEREMY, you are required to stay 3 hours after your surgery before we can discharge you. documented in this encounterHaven Behavioral Hospital Of Eastern [id number] Hospital Discharge instructions* Discharge Instructions* Colt Bryan MD - 03/20/2023 11:06 AM EDT ECF Nursing Instructions: 1)Picc Care 2)Qmon CBC,SR,Creat,CRP, fax to Dr. Bryan [phone] 3)IV ATB for 42 days 4)Call Dr. [...] nutrition/TPN (total parenteral nutrition) Blood products Chemotherapy commercial glazier antibiotics Blood draws Will a PICC affect [...] (Bolivian) * rivaroxaban (Bolivian) documented in this encounterHaven Behavioral Hospital Of Eastern [id number] Consult note* Jessica Briseno RN - 03/20/2023 11:04 AM EDTAssociated Order(s): IP CONSULT TO IV TEAM PICC Line Insertion Procedure Note Procedure: Insertion of 4 FR SL Power and PICC into right arm per hospital protocol Indications: Shelter IV therapy, Home IV therapy Insertion: Bedside [...] prevention, CLABSI, and PICC procedural information. [employer] Representative Lot #: [id number] T [employer] [id number] Consult note* Jessica Briseno RN - 03/20/2023 10:[address] Ortega, patient's grey goods marker, has okayed patient for a PICC line. [employer] [id number] History and physical note* Anusha Barber MD - 03/19/2023 11:54 AM EDT History and Physical Update ( H&P completed within the previous thirty days ) I personally reviewed the History and Physical, interviewed and examined the patient prior to surgery. No changes have occurred in the patient's condition since the History and Physical was completed. [employer] Work Phone: 1(984) 526-688806-01-2023 History and physical note* Anusha Barber MD - 03/19/2023 11:54 AM EDT History and Physical Update ( H&P completed within the previous thirty days ) I personally reviewed the History and Physical, interviewed and examined the patient prior to surgery. No changes have occurred in the patient's condition since the History and Physical was completed. documented in this encounterHaven Behavioral Hospital Of Eastern [id number] Procedure note* Anusha Barber MD - 03/19/2023 10:22 AM EDT Operative Note Patient Name: RENUKA GRAHAM Date of Service: March 19, 2023 Date of : 1955 Clinician: ANUSHA BARBER MD Facility: [facility] Location: [facility] PREOPERATIVE DIAGNOSIS: Left knee periprosthetic joint infection. POSTOPERATIVE DIAGNOSIS: Left knee periprosthetic joint infection. PROCEDURES PERFORMED: 1. Left knee polyethylene exchange. 2. Left knee irrigation and debridement. SURGEON: Anusha Barber MD MYSQL DBA: Kaur Pierre PA-C ANESTHESIA: General endotracheal anesthesia. [...] was then let down.Hemostasis was obtained. A 10-Maldivian drain was placed in the knee. The [...] do home health or go to a snf facility. Kaur Pierre PA-C, assisted with proper [...] patient. ANUSHA BARBER MD TT: 03/19/2023 15:47:00 [facility] [id number] Procedure note* Anusha Barber MD - 03/19/2023 10:22 AM EDT Operative Note Patient Name: RENUKA GRAHAM Date of Service: March 19, 2023 Date of : 1955 Clinician: ANUSHA BARBER MD Facility: [facility] Location: [facility] PREOPERATIVE DIAGNOSIS: Left knee periprosthetic joint infection. POSTOPERATIVE DIAGNOSIS: Left knee periprosthetic joint infection. PROCEDURES PERFORMED: 1. Left knee polyethylene exchange. 2. Left knee irrigation and debridement. SURGEON: Anusha Barber MD MYSQL DBA: Kaur Pierre PA-C ANESTHESIA: General endotracheal anesthesia. [...] was then let down.Hemostasis was obtained. A 10-Maldivian drain was placed in the knee. The [...] do home health or go to a snf facility. Kaur Pierre PA-C, assisted with proper [...] patient. 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 Hypertension ( I [...] a revision procedure on 10/02[facility]2022. [facility] he [facility] [...] 2017 Cardiac clearance from 09/25/22; Dr. 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 Previous Surgery: LTKA 12/25/2014 Dr Alberts. Previous Surgery: RTKA 08/17/2017 Dr Alberts. Comments: Patient fell out of bed two weeks ago and landed on her knees. She went to the emergency room on 03/15/23 and [facility] said there wasn't a fracture present on [...] MANUEL injection within the next few days. [facility] Work Phone: 1(134) 719-211904-24-2023 Evaluation note* Encounter Date Diagnosis Assessment Notes [...] Low back derangement syndrome (ICD-10 - M53.86) [employer] Other 03-21-2023 Evaluation note* Encounter Date Diagnosis Assessment Notes Treatment Notes Treatment Clinical Notes Dec, Asthma, moderate persistent (ICD-10 - J45.40) Dec, Morbid obesity (ICD-10 - E66.01) 21 Mar, 2023 JEREMY (obstructive sleep apnea) (ICD-10 - G47.33) Dec, Allergic rhinitis (ICD-10 - J30.9) Dec, GERD (gastroesophageal reflux disease) (ICD-10 - K21.9) [employer] Other 03-02-2023 NoteCONSULTATION CONSULTATION DATE: 12/18/2022 HISTORY: This is a 67-year-old female who returns to the clinic for medication maintenance for her chronic left knee pain. The patient had a total knee replacement done on October 02, 2022 and this was done by Dr. Richard martinez in [place]. She, for a short time, was in [...] prescription, and she agrees with this plan.[id number] Evaluation note* Encounter Date Diagnosis Assessment Notes Treatment Notes Treatment Clinical Notes Nov, Pre-diabetes (ICD-10 - R73.09) [place] [employer] Other [id number] History of Present illness Narrative* Brandy Mullen RN - 10/06/2022 4:58 PM EST Patient met all goals and was given discharge instruction packet to take to facility by RN. Patientaware of when they last had pain meds and when they can have them again next. Patient escorted to transport vehicle via wheelchair by [facility]. This RN attempted to call report two times with no answer. Voicemail and callback number left. * Yasmin Beck, PT - 10/06/2022 2:55 PM EST [facility] Discharge Recommendations: [facility] facility placement Distance Ambulated (ft): 50 ([id number], [id number]) Device: Rolling walker L Knee Flexion 0-140: [...] Rolling walker Distance Ambulated (ft) 50 Comments f20mtyn, f47gtks with FWW Procedures Procedures Gait Training;Therapeutic Exercise Gait Training Gait Training Time Entry 15 Gait Training Activity 1 Gait training [id number] to toilet cga Gait Training Activity 2 Gait training s04jqsy after toileting task, cga Therapeutic Exercise Therapeutic [...] AM EST CM updated by Zunilda at [facility] that precert had been obtained and they were able to admit patient to facility today. CM updated patient at bedside and she was updating her insurance company to keep scheduled transport time of noon. CM has faxed HENS, discharge RX, instructions and orders to [facility]: [phone]. RX in folder: oxycodone, xarelto and zofran Discharge packet completed, will place at [facility]. No further CM needs at this time. RN number for report: [phone] * Yasmin Beck PT - 10/06/2022 9:51 AM EST [facility] [place] Physical Therapy Treatment PT Discharge Recommendations: [facility] facility placement Distance Ambulated (ft): 45 Device: [...] stance time Distance Ambulated (ft) 45 Comments [id number] with FWW, z54aibv with FWW after toileting AROM LLE (degrees) L Knee Flexion 0-140 0-77 Procedures Procedures Gait Training;Therapeutic Exercise Gait Training Gait Training Time Entry 15 Gait Training Activity 1 Gait with FWW c98qars prior to toileting cga Gait Training Activity 2 Gait with FWW x09lpom after toileting, using personal FWW Therapeutic Activity [...] that CM has spoken with admissions at [facility] and they are still awaiting precert. [...] AM EST CM made OB call to [facility]- [phone]-spoke with Thuy in admissions- she has already sent a note to insurance [employer] this morning to check on precert status. CM has faxed updated PT and progress notes to [phone]- will update patient at bedside that we [...] in addition with additional sliding scale insulin. [id number] glucose results have been reviewed. 0 Lab [...] exercises. Xarelto use noted by surgeon. Awaiting snf home placement. This patient will be considered [...] Plan for discharge to Subacute Rehab Facility ([facility] or [facility]) when cleared by PT and medically stable [...] Gorman PTA - 10/05/2022 12:50 PM EST [facility] Physical Therapy Treatment PT Discharge Recommendations: [facility]CI facility placement Distance Ambulated (ft): 30 Device: [...] of care until patient is discharged from [facility]. Objective 10/05/22 1250 General Family/Caregiver Present No [...] PT Plan Skilled PT PT Discharge Recommendations [facility]CI facility placement Goals/Education Encounter Problems Encounter Problems [...] 10/04/22 Outcomes Date/Time User Outcome 10/04/22 2150 nJ Guillory RN Progressing Encounter Problems (Resolved) There [...] Plan for discharge to Subacute Rehab Facility ([facility] or [facility]) when cleared by PT and medically stable * Amanda Gorman, COMPUTING SYSTEMS MECHANIC - 10/05/2022 9:42 AM EST [facility] Physical Therapy Treatment PT Discharge Recommendations: [facility]CI facility placement Distance Ambulated (ft): 30 Device: [...] Plan of care untilpatient is discharged from [facility]. Objective 10/05/22 0942 General Family/Caregiver Present No [...] PT Plan Skilled PT PT Discharge Recommendations [facility] facility placement Goals/Education Encounter Problems Encounter Problems [...] 10/04/2022 12:36 PM EST OB call to [facility]. Per Yaz: admission is not in [...] Plan for discharge to Subacute Rehab Facility ([facility] or [facility]) when cleared by PT and medically stable * Beckie Sunshine PT - 10/04/2022 9:50 AM EST [facility] Physical Therapy Treatment PT Discharge Recommendations: [facility]CI facility placement DISPOSITION/PLAN: PT is recommending therapy [...] Patient received recumbent in room 226 at [facility] Please refer to OBJECTIVE assessment, TREATMENT [...] 1-2 times per day PT Discharge Recommendations [facility] facility placement Goals/Education Encounter Problems Encounter Problems [...] 10/03/2022 6:11 PM EST HENS COMPLETE to [facility] * Amanda Gorman PTA - 10/03/2022 3:07 PM EST Patient sleeping soundly and did not rouse to name of knock. Will attempt again in am. * Debbie Kapadia RN - 10/03/2022 2:28 PM EST Zunilda from [facility] will accept the patient pending precert and patient updated * Meghann Bryan - 10/03/2022 12:08 PM EST 10/03/22 1208 Clinical Encounter Type Visited With Patient Time Spent 15 Minutes Type of Contact Introduction SPIRITUAL CARE ASSESSMENT Spiritual Care Assessment: Pt appropriate and coping supported by family and melinda expressed hope Spiritual Intervention: Active listening Hospitality provided [place] given Outcome: Pt shared feeling and hope Plan: PC will return at pt/family request. * Debbie Kapadia RN - 10/03/2022 11:36 AM EST Into see the patient and updated that [facility] is reviewing the referral. * Debbie Kapadia RN - 10/03/2022 10:36 AM EST [facility] called back the they do not have beds and will not until mid next week. [employer] Rep. Reports the patient just told her to tell me when she delivered her leg pumps of a [facility] facility [facility] in [place] and called [phone] spoke to Zunilda and she does have beds and referral faxed to her at [phone]. * Debbie Kapadia RN - 10/03/2022 9:50 AM EST Rosetta from [facility] has no beds Patient would like a referral to [facility] in [place] and called them [phone] Admissions in a meeting but they would like the referral sent to [facility] of [phone] and sent. Patient will look for a 3rd choice if needed. * Amanda Gorman PTA - 10/03/2022 8:55 AM EST [facility] Physical Therapy Treatment PT Discharge Recommendations: FCI facility placement Distance Ambulated (ft): 30 Device: [...] of care until patient is discharged from [facility]. Objective 10/03/22 0855 General Family/Caregiver Present No [...] 1-2 times per day PT Discharge Recommendations [facility]CI facility placement Goals/Education Encounter Problems Encounter Problems [...] Plan for discharge to Subacute Rehab Facility ([facility] or [facility]) when cleared by PT and medically stable * Debbie Kapadia RN - 10/02/2022 4:34 PM EST Spoke to Rosetta in admissions at [facility] and she does not know what fax [phone] isbut her fax is [phone] and manually faxed the referral but she also does not have beds until next week She would need to look at her beds to determine what day. Currently she is helping in the cafeteria but she will review and get back with CM tomorrow. * Amanda Horvath PT - 10/02/2022 3:00 PM EST [facility] Physical Therapy Evaluation PT Discharge Recommendations: FCI facility placement Distance Ambulated (ft): 30 Device: [...] loosening of internal left knee prosthetic joint ([facility]) Past Medical History: Diagnosis Date Anemia Asthma Chronic kidney disease CKD 2/3 COPD (chronic obstructive pulmonary disease) ([facility]) Diabetes mellitus ([facility]) DVT of leg (deep venous thrombosis) ([facility]) 2020 left leg GERD (gastroesophageal reflux disease) [...] of Steps 3 Prior Function Level of [place] Independent with mobility and functional transfers Receives [...] 1-2 times per day PT Discharge Recommendations FCI facility placement Equipment Recommended [facility] PT - [...] none Initial Transition Plan Initial Transition Plan Long-Term Facility Back up Transition Plan Back up Transition plan Long-Term Facility Plan is SNF and requesting [facility] in [place] * Anusha Sung DO - [...] she would like to go to [facility] in [place] at discharge. She has no one at home to help her. documented in this encounterHaven [facility]al Hospital Of Eastern [id number] Hospital course Narrative* Debbie Kapadia RN - 10/03/2022 5:58 PM EST [facility]ILITY FOR [facility] THERAPIES -PT/OT Eval for Gait training, ADL'S, bed mobility, transfers, knee rom and strengthening, venous return exercises and modalities prn. Please follow surgeon's discharge instructions and prescription directions. Surgeon' discharge instructions are in patient's folder- FOLLOW SURGEON INSTRUCTION SHEETS Contact Surgeon's office with any questions/concerns [phone] -When Prevena Wound Vac lifespan alarms IN 7 DAYS FROM SURGERY please remove the wound vac dressingOR HAVE A FOLLOW UP SCHEDULED FOR 10/09/22 TO HAVE THE OFFICE REMOVE. CALL TO SCHEDULE THIS APPOINTMENT IF YOU WANT THE OFFICE TO REMOVE. Take a photo of the incision and email : [email or web address] apply Optifoam dressing that is in your discharge folder. ---A wound check will be performed at one week which can be done either by in person by scheduling a follow up visit in one week with Dr. BARBER in clinic by calling [phone], or virtually via store and forward telehealth. If you are opting for a virtual one-week wound check: 1. Please remove Prevena dressing only after therapy has completed as indicated by the device. 2. Take a photo of your wound and E-mail the photo to eSNF with Attn Dr. Rodas in the subject [...] or concerns. Verify Office location when scheduling. [email or web address] [phone] * Shilpi Rodriguez RN - 10/01/2022 9:36 [...] as recommended by your specialist Meds per [facility] recc NPO per JIS instruction Additional Instructions: [...] prior to your surgery. Check in at entry level receptionist desk [address] [place] [address]. If Outpatient, these additional instructions apply: An adult must stay with you the whole time you are here and drive you home. An adult must stay withyou at home for 24 hours due to Anesthesia. If you have JEREMY, you are required to stay 3 hours after your surgery before we can discharge you. 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 The golf course superintendent was [employer] . The poly locked [...] good position and alignment of the components. MYSQL DBA/ATTENDING PARTICIPATION: Carlos Gomez DO assisted with proper [...] By: Anusha Barber MD, on 10/02/2022 12:05:48 [facility], A Member of [facility] OPERATIVE REPORT PATIENT NAME: Renuak Graham DATE OF : 1955 CSN: [id number] SURGEON: Anusha Barber MD DATE OF SERVICE: 10/02/2022 DATE OF SURGERY: 10/02/2022 REF [id number] LOT [id number] PERSONA Vivacit-E 16 Millimeter Tibial insert Use By 2024-11-18 (63) [id number] (93) [id number] (88) [id number] [facility] [id number] Procedure note* Anusha Barber MD - 10/02/2022 11:31 AM EST [facility], A Member of [facility] OPERATIVE REPORT PATIENT NAME: Renuka Graham DATE OF : 1955 CSN: [id number] SURGEON: Anusha Barber MD DATE OF SERVICE: 10/02/2022 DATE OF SURGERY: 10/02/2022 PREOPERATIVE DIAGNOSIS: Left knee arthroplasty failure, 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 The golf course superintendent was [employer] . The poly locked [...] good position and alignment of the components. MYSQL DBA/ATTENDING PARTICIPATION: Carlos Gomez DO assisted with proper [...] By: Anusha Barber MD, on 10/02/2022 12:05:48 [facility], A Member of [employer] OPERATIVE REPORT PATIENT NAME: Renuka Graham DATE OF : 1955 CSN: [id number] SURGEON: Anusha Barber MD DATE OF SERVICE: 10/02/2022 DATE OF SURGERY: 10/02/2022 REF [id number] LOT [id number] ESTER Vivacit-E 16 Millimeter Tibial insert Use By 2024-11-18 (44) [id number] (63) [id number] (26) [id number] documented in this encounterThaTrunk [id number] History and physical note* Anusha Barber MD - 10/02/2022 10:29 AM EST History and Physical Update ( H&P completed within the previous thirty days ) I personally reviewed the History and Physical, interviewed and examined the patient prior to surgery. No changes have occurred in the patient's condition since the History and Physical was completed. [employer] Work Phone: 1(919) 502-116212-15-2022 History and physical note* Anusha Barber MD - 10/02/2022 10:29 AM EST History and Physical Update ( H&P completed within the previous thirty days ) I personally reviewed the History and Physical, interviewed and examined the patient prior to surgery. No changes have occurred in the patient's condition since the History and Physical was completed. documented in this encounterHaven Behavioral Hospital Of Eastern [id number] Evaluation note* Encounter Date Diagnosis Assessment Notes [...] has been addressed. Sep, Other secondary chronometer adjuster sampson gout without tophus, unspecified site (ICD-10 - M1A.40X0) no more gout attack Sep, Hyperuricemia (ICD-1 0 - E79.0) On Allopurinol. 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 [employer] Other 12-01-2022 NoteCONSULTATION CONSULTATION DATE: 09/18/2022 This is a 67-year-old female who returns to the clinic for a 3-month follow-up for chronic lower back pain, left hip pain and left knee pain. She was last seen on 05/29/2022. At that time, she was in the process of having a workup from Orthopedics in [place] pending left knee and hip replacement. Today she reports that she is having a left total knee done on 10/[address] Barber in [place]. At her last appointment she was ordered [...] time for a follow-up unless otherwise indicated.[facility] [id number] Evaluation note* Encounter Date Diagnosis Assessment Notes [...] Low back derangement syndrome (ICD-10 - M53.86) [employer] Other 09-13-2022 Evaluation note* Encounter Date Diagnosis [...] Jun, Medication managemen t (ICD-10 - Z79.899) [employer] Other 08-11-2022 NoteCONSULTATION CONSULTATION DATE: 05/29/2022 HISTORY [...] t.i.d., tizanidine 4 mg b.i.d., Topamax and [place] 5/325 b.i.d. She was seen by Dr. Desai, who referred her to an orthopedic high insurance risk manager down in [place] regarding her left hip arthrosis. She is in need of a total left hip replacement, but she was sent to complete four weeks of therapy for strengthening prior to the surgery. The combination of her lower back pain and hip pain increases her pain. At rest, her pain is 4/10. With activity, it is 8-9/10. The patient feels the [place] is not as helpful as it has [...] the patient, she must bring in her [place] to be disposed of prior to starting the Percocet. She is in agreement to this. The intent is to go down to daily following her hip replacement and following lumbar rhizotomy. Patient will be brought in post procedure.[facility] [id number] Evaluation note* Encounter Date Diagnosis Assessment Notes [...] May, Medication managemen t (ICD-10 - Z79.899) [employer] Other 07-07-2022 NoteCONSULTATION CONSULTATION DATE: 04/24/2022 This [...] total knee replacements. She was currently taking [place] 5/325, 1.5 mg q. day. In addition, she takes gabapentin, tizanidine and Topamax. She was on Plavix but has been taken off of that two weeks ago. The patient recently saw her PCP and he suggested that the [place] be increased to b.i.d. for better management [...] degenerative disk and lumbar spondylosis. PLAN: Her [place] will be refilled at 5/325 b.i.d. After discussion with the patient, she agrees to move forward with the lumbar epidural steroid injection with sedation only. The patient agrees to this and was educated regarding her vitamins and magnesium. She will be followed up in the clinic post-procedure. [facility] Signed and Approved by: GIULIA PICHARDO . 05/01/2022 09:48:00[facility]06-29-2022 Evaluation note* Encounter Date Diagnosis Assessment Notes [...] Mar, Medication managemen t (ICD-10 - Z79.899) [employer] Other 06-28-2022 Evaluation note* Encounter Date Diagnosis Assessment Notes Treatment Notes Treatment Clinical Notes Mar, Asthma, moderate persistent (ICD-10 - J45.40) Mar, Morbid obesity (ICD-10 - E66.01) Mar, JEREMY (obstructive sleep apnea) (ICD-10 - G47.33) Mar, Allergic rhinitis (ICD-10 - J30.9) Mar, GERD (gastroesophageal reflux disease) (ICD-10 - K21.9) [employer] Other 06-15-2022 Evaluation note* Encounter Date Diagnosis [...] has been addressed. 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 [employer] Other 05-26-2022 Evaluation note* Encounter Date Diagnosis Assessment Notes Treatment Notes Treatment Clinical Notes February, Edema of extremities (ICD-10 - R60.0) [employer] Other 04-20-2022 Evaluation note* Encounter Date Diagnosis [...] Jan, Metabolic syndrome X (ICD-10 - E88.81) [employer] Other 04-11-2022 Evaluation note* Encounter Date Diagnosis Assessment Notes Treatment Notes Treatment Clinical Notes Jan, Acute right-sided thoracic back pain (ICD-10 - M54.6) [employer] Other 02-23-2022 Evaluation note* Encounter Date Diagnosis Assessment Notes Treatment Notes Treatment Clinical Notes Nov, Other chronic pain (ICD-10 - G89.29) [employer] Other 02-15-2022 Evaluation note* Encounter Date Diagnosis Assessment Notes Treatment Notes Treatment Clinical Notes Nov, Other chronic pain (ICD-10 - G89.29) [employer] Other 01-18-2022 Evaluation note* Encounter Date Diagnosis [...] Oct, Metabolic syndrome X (ICD-10 - E88.81) [employer] Other 01-18-2022 Evaluation note* Encounter Date Diagnosis [...] cannot say how often she uses it. [employer] Other 12-16-2021 Evaluation note* Encounter Date Diagnosis Assessment Notes Treatment Notes Treatment Clinical Notes Sep, Other chronic pain (ICD-10 - G89.29) [employer] Other 12-08-2021 Evaluation note* Encounter Date Diagnosis [...] - D63.1) Hemoglobin stable on ferrous sulfate. [employer] Other 11-18-2021 Evaluation note* Encounter Date Diagnosis Assessment Notes Treatment Notes Treatment Clinical Notes Aug, Hyperuricemia (ICD-1 0 - E79.0) Aug, Other chronic pain (ICD-10 - G89.29) [employer] Other 10-29-2021 Evaluation note* Encounter Date Diagnosis Assessment Notes Treatment Notes Treatment Clinical Notes Jul, Lower extremity edema (ICD-10 - R60.0) [employer] Other 10-13-2021 Evaluation note* Encounter Date Diagnosis Assessment Notes Treatment Notes Treatment Clinical Notes Jul, Other chronic pain (ICD-10 - G89.29) Jul, Acute right-sided thoracic back pain (ICD-10 - M54.6) [employer] Other 10-13-2021 Evaluation note* Encounter Date Diagnosis Assessment Notes Treatment Notes Treatment Clinical Notes Jul, Other chronic pain (ICD-10 - G89.29) [employer] Other 10-07-2021 Evaluation note* Encounter Date Diagnosis [...] with her we will contact diabetic shoe [employer]. Jul, Lower extremity edema (ICD-10 - R60.0) [...] has been off at least a month. [employer] Other 09-23-2021 Evaluation note* Encounter Date Diagnosis [...] Jun, Metabolic syndrome X (ICD-10 - E88.81) [employer] Other 09-22-2021 Evaluation note* Encounter Date Diagnosis Assessment Notes Treatment Notes Treatment Clinical Notes Jun, Asthma, moderate persistent (ICD-10 - J45.40) Jun, Morbid obesity (ICD-10 - E66.01) Jun, JEREMY (obstructive sleep apnea) (ICD-10 - G47.33) Jun, Allergic rhinitis (ICD-10 - J30.9) Jun, GERD (gastroesophageal reflux disease) (ICD-10 - K21.9) [facility] [employer] Other consult note* Clinical Note Date No Information [facility] Work Phone: Discharge summary* Clinical Note Date No Information [facility] Work Phone: Evaluation noteNo InformationNortHelen M. [facility] [employer] Other Evaluation note* Diagnosis Onset Date Resolution Status Iron deficiency anemia chron ic Thrombophlebitis chronic [facility] Work Phone: Evaluation note* Diagnosis Mechanical loosening of internal left knee prosthetic joint, subsequent encounter- Primary Mechanical loosening of internal left knee prosthetic joint, 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, subsequent encounter documented in this encounter [facility] PennsylvaniaEvaluation note* Diagnosis S/P left knee surgery- Primary Infection and inflammatory reaction due to other internal joint prosthesis, initial encounter (CMS/HCC) Infection and inflammatory reaction due to other internal joint prosthesis, initial encounter ([facility]) documented in this encounter [facility] PennsylvaniaEvaluation noteNo assessment information availableWooster Community Hospital Work Phone: Evaluation note* Author Yuan Romeo [facility] Authored January 05, 2024 2:5 3pm Patient is stable with lack of insurance coverage for Symbicort. It appears that patient's best choice for insurance coverage of medications should be Advair Diskus. [facility] Work Phone: Evaluation note* Type Assessment Date No Information [facility] Work Phone: Evaluation note* Diagnosis Onset Date Resolution Status Admit Date Contact with and (suspected) exposure to covid-19 noneactive October 27 12:18pm [facility] Work Phone: Evaluation note* Diagnosis Hypotension after procedure- Primary Hypotension after procedure COPD (chronic obstructive pulmonary disease) (HCC) Chronic airway obstruction, not elsewhere classified Diabetes mellitus (HCC) Type II or unspecified type diabetes mellitus without mention of complication, not stated as uncontrolled Hypertension Unspecified essential hypertension Stage 4 chronic kidney disease ([facility]) documented in [facility] encounter [facility]* Diagnosis ETD (Eustachian tube dysfunction), bilateral- Primary Ear fullness, bilateral Swollen gland Multinodular goiter ([facility]) Nontoxic multinodular goiter documented in [facility] encounter [facility] HealthcareEvaluation note* Diagnosis Sensorineural hearing loss, bilateral- Primary Tinnitus, bilateral Unspecified tinnitus documented in this encounter [facility] HealthcareEvaluation note* Diagnosis Allergic rhinitis, unspecified seasonality, unspecified trigger- Primary Sensorineural hearing loss (SNHL), bilateral Nontoxic multinodular goiter ([facility]) Nontoxic multinodular goiter documented in this encounter [facility] HealthcareEvaluation note* Diagnosis Left knee pain, unspecified chronicity- Primary Left hip pain Pain in joint, pelvic region and thigh History of total knee arthroplasty, left Primary osteoarthritis of left hip Primary localized osteoarthrosis, pelvic region and thigh Left hip pain Pain in joint, pelvic region and thigh Left knee pain, unspecified chronicity [facility] Diagnosis Left knee pain, unspecified chronicity [facility] Diagnosis Left hip pain Pain in joint, pelvic region and thigh [facility]* Clinical Note Date No Information [facility] Work Phone: History general Narrative - Reported* [...] History appendectomy Hospitalization History tonsillectomy Hospitalization History [facility] Kidney problems 03/20 019 Hospitalization History [facility] Hospitalization History pneumonia Hospitalization History Leg cramps [facility] dehydrat ion 06/2021 [employer] Other [email or web address] general Narrative - ReportedNowestern [facility] [employer] Other [employer] general Narrative - Reported* Type Description Date [...] History appendectomy Hospitalization History tonsillectomy Hospitalization History [facility] Kidney problems 03/20 019 Hospitalization History sEE ABOVE Hospitalization History pneumonia Hospitalization History Leg cramps [facility] dehydrat ion 06/2021 [employer] Other history general Narrative - Reported* Type [...] History appendectomy Hospitalization History tonsillectomy Hospitalization History [facility] Kidney problems 03/20 019 Hospitalization History sEE ABOVE Hospitalization History pneumonia Hospitalization History Leg cramps [facility] dehydrat ion 06/2021 [employer] Other History general Narrative - Reported* Type [...] History appendectomy Hospitalization History tonsillectomy Hospitalization History [facility] Kidney problems 03/20 019 Hospitalization History sEE ABOVE Hospitalization History pneumonia Hospitalization History Leg cramps [facility] dehydrat ion 06/2021 [employer] Other History of Present illness Narrative* Patient [...] implantable device. 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 Encarnacion * 5. I reviewed her recent lab work * 6. We will see her back in 1 year in follow-up [facility] [address] DO Work Phone: Hospital Discharge instructions* Attachments The following attachments cannot be sent through Care Everywhere. * Fall Prevention (Bolivian) * DVT (Deep Vein Thrombosis): Prevention: General Info ([place]ivian) * Pain Medication Precautions ([place]ian) * Constipation ([place]ian) * Incentive Spirometer: General Info ([place]ian) * Antibiotics: General Info ([place]ian) [facility]* Date Instruction Additional Infor mation No Information [facility] Work Phone: Progress note* Clinical Note Date No Information [facility] Work Phone: Reason for referral (narrative)* Reason For Referral No Information [facility] Work Phone: Reason for referral (narrative)No reason for [facility]: Reason for visit Narrative* Auth/Cert Specialty Diagnoses / Procedures Referred By Rene pina Referred To Contact Diagnoses Mechanical loosening of internal left knee prosthetic joint, subsequent encounter T84.033D Procedures MI REVISION TOTAL KNEE ARTHROPLASTY WITH OR WITHOUT ALLOGRAFT 1 COMPONENT MI REVISION TOTAL KNEE ARTHROPLASTY WITH OR WITHOUT ALLOGRAFT 1 COMPONENT Left knee revision arthroplasty poly exchange Anusha Barber MD [address] [place] [address] [address] [place] [address] Referral ID Status Reason Start Date Expiration Date Visits Re quested Visits Authorized [id number] 1 1 [facility] for visit Narrative* Auth/Cert Specialty Diagnoses / Procedures Referred By Contac t Referred To Contact Diagnoses Infection and inflammatory reaction due to other internal joint prosthesis, initial encounter ([facility]) T84.59XA Procedures MI INCISION & DRAINAGE ABSCESS/BURSA/HEMATOMA DEEP SOFT TISSUE THIGH/KNEE Left knee I & D Anusha Barber MD [address] [place] [address] [address] [place] [address] Referral ID Status Reason Start Date Expiration Date Visits Re quested Visits Authorized [id number] 1 1 [facility] for visit Narrative* Auth/Cert (Routine) Specialty Diagnoses / Procedures Referred By Contac t Referred To Contact Diagnoses Left hip pain Left hip pain [M25.552] Procedures MI ARTHROCENTESIS ASPIR&/INJ MAJOR JT/BURSA W/O US INJECTION MEDICATION-HIP INTRA-ARTICULAR INJECTION Estrella Bryan MD [address] [place] [address] [place] [address] Phone: tel: fax: [facility] [address] [place] [address] Referral ID Status Reason Start Date Expiration Date Visits Re quested Visits Authorized [id number] 1 1 [facility] Summary Purpose Family History No Family History [...] section and content) DATE CREATED AUTHOR 06/14/2018 [facility] DATE CREATED AUTHOR AUTHOR'S ORGANIZ ATION 07/09/2018 [facility] DATE CREATED AUTHOR AUTHOR'S ORGANIZ ATION 09/05/2018 [facility] DATE CREATED AUTHOR AUTHOR'S ORGANIZ ATION 12/29/2020 [facility] DATE CREATED AUTHOR AUTHOR'S ORGANIZ ATION 09/26/2022 [facility] DATE CREATED AUTHOR AUTHOR'S ORGANIZ ATION 09/26/2022 [facility] DATE CREATED AUTHOR AUTHOR'S ORGANIZ ATION 03/30/2023 [facility] DATE CREATED AUTHOR AUTHOR'S ORGANIZ ATION 06/05/2024 [facility] Hodgeman [facility] Center DATE CREATED AUTHOR AUTHOR'S ORGANIZ ATION 06/07/2024 [facility] DATE CREATED AUTHOR AUTHOR'S ORGANIZ ATION 06/09/2024 [facility]uca Hodgeman [facility] ical Center DATE CREATED AUTHOR AUTHOR'S ORGANIZ ATION 06/11/2024 [facility] Hodgeman [facility] ical Center DATE CREATED AUTHOR AUTHOR'S ORGANIZ ATION 07/22/2024 [facility] DATE CREATED AUTHOR AUTHOR'S ORGANIZ ATION 01/27/2025 [facility] DATE CREATED AUTHOR AUTHOR'S ORGANIZ ATION 03/17/2025 [facility] DATE CREATED AUTHOR AUTHOR'S ORGANIZ ATION 04/15/2025 [facility] DATE CREATED AUTHOR AUTHOR'S ORGANIZ ATION 05/02/[address] [facility] DATE CREATED AUTHOR AUTHOR'S ORGANIZ ATION 06/14/2025 [facility] REASON FOR VISIT (unrecogniz ed section and content) Reason Comments Swollen Glands Reason Comments Thyroid Nodule Follow up ultrasound [facility] 01/24/25 Ear Problem Audio 03/14/25 Reason Comments Pain 69 y.o. female 2007 L TKAand 2021 L TKRevsion (Dr. Barber in [place]). Had a cat scratch infection in 2022 [...] and grafts, initial encounter Vlad Wade MD [address] [place] [address] Phone: tel: Vlad Joel MD [address] [place] [address] Phone: tel: fax:[phone] Referral ID Status Reason Start Date Expiration Date V isits Requested Visits Authorized [id number] New Request 03/03/2025 03/28/2026 1 1 Care [...] DO Primary Care Provider Active Deidra Lee [facility] Emergency Provider Active Team Status: Inactive Member Role Status Dates Elda Sibley DO Primary Care Provider Active Peter Sosa DO Attending Provider Active Team Status: Active Member Role Status Dates Colt Ndiaye MD Active Elda Sibley DO Primary Care Provider Active Megan Epps APRN Attending Provider, [facility] er Provider Active Web Content Producer Relationship Specialty Start Date End Date Peter Sosa DO [address] [place] [address] PCP - General Family Medicine 12/5/22 Web Content Producer Relationship Specialty Start Date End Date Peter Sosa DO [address] [place] [address] PCP - General Family Medicine 09/22/22 Name Effective Dates (start - stop) Status Members No Information Team Status: Inactive Member Role Status Dates Peter Sosa DO Primary Care Provider Active Start: October 27, 2024 End: October 27, 2024 Yohana Low APRN Attending Provider Active S tart: October 27, 2024 End: October 27, 2024 Web Content Producer Relationship Specialty Start Date End Date Unallocated, Deb Alvarez MD [address] [place] [address] PCP - General Family Medicine 12/18/23 Web Content Producer Relationship Specialty Start Date End Date Unallocated, Deb Alvarez MD [address] [place], [place] [address] [address] PCP - General Family Medicine 12/18/23 Web Content Producer Relationship Specialty Start Date End Date Unallocated, Deb Alvarez MD [address] [place], [place] [address] [address] PCP - General Family Medicine 12/18/23 Web Content Producer Relationship Specialty Start Date End Date Unallocated, Deb Alvarez MD [address] [place] [address] [place] [address] PCP - General Family Medicine 12/18/23 Web Content Producer Relationship Specialty Start Date End Date Unallocated, Deb Alvarez MD [facility] [place] [address] PCP - General Family Medicine 12/18/23 Web Content Producer Relationship Specialty Start Date End Date Peter Sosa MD [address] [place] [address] PCP - General Family Medicine 03/17/25 Web Content Producer Relationship Specialty Start Date End Date Peter Sosa MD [address] [place] [address] PCP - General Family Medicine 03/17/25 Team Status: Inactive Member Role Status Dates Peter Sosa DO Attending Provider Active Start: April 11, 2025 End: April 11, 2025 Web Content Producer Relationship Specialty Start Date End Date Peter Sosa DO [address] [place] [address] PCP - General Family Medicine 04/28/25 Web Content Producer Relationship Specialty Start Date End Date Peter Sosa DO [address] [place] [address] PCP - General Family Medicine 04/28/25 Goals [...] Care 2)Qmon CBC,SR,Creat,CRP, fax to Dr. Bryan [phone] 3)IV ATB for 42 days 4)Call Dr. [...] Jn Guillory, MARIBELL)1248 (Not Given - Provider: Shwan Rinaldi RN - Reason: Other - Comment: [...] No 0820 (Given - Provider: Opal Carter, CHECKMAN)2058 (Given - Provider: Karla Azevedo) 0727 (Given [...] Shawn Rinaldi RN)2117 (Given - Provider: Madonna Fiore RN) 915 (Given - Provider: Brandy [...] Every 6 hours PRN, itching, Starting on [place] 10/05/22 at 1545 1601 (Given - Provider: [...] BE BASED ON THE PRIMARY CLINICAL RECORDS. [employer] [facility]. provides no warranty or guarantee of the accuracy or completeness of information in this document.
[2025-07-08 11:53] LABS: Hematocrit 37.1 % (36.0-48.0); Hemoglobin 11.8 g/dL (12.0-16.0); Immature Granulocytes Abs Auto 0.03 10^3/uL (0.00-0.03); Immature Granulocytes Pct Auto 0.5 % (0.0-0.5); Lymphocytes Absolute Auto 1.7 10^3/uL (1.2-3.8); Mean Corpuscular HGB Conc 31.8 g/dL (29.9-35.2); Mean Corpuscular Hemoglobin 28.3 pg (26.7-34.0); Mean Corpuscular Volume 89.0 fL (81.0-99.0); Platelet Count 220 10^3/uL (150-450); Red Blood Count 4.17 10^6/uL (4.20-5.40); White Blood Count 6.6 10^3/uL (4.0-11.0)
[2025-07-08 12:05] LABS: Microalbum Creatinine Ratio Ur 96.4 mg/g (0.0-29.9)
[2025-07-08 12:27] LABS: Alanine Aminotransferase 7 U/L (14-59); Albumin Globulin Ratio 0.8; Albumin Level 3.2 g/dL (3.4-5.0); Alkaline Phosphatase 76 U/L (46-116); Anion Gap 11.7; Aspartate Amino Transferase 17 U/L (15-37); Blood Urea Nitrogen 21.0 mg/dL (7.0-18.0); Calcium 8.4 mg/dL (8.5-10.1); Carbon Dioxide 25.4 mmol/L (21.0-32.0); Chloride 110 mmol/L (98-107); Cholesterol 225 mg/dL (<=200); Estimated GFR (African America >60 (>=60 mL/min/1.73m^2); Estimated GFR (Non-African Ame 55 (>=60 mL/min/1.73m^2); Free T3 3.05 pg/mL (2.18-3.98); Globulin 3.8 g/dL; Glucose 104 mg/dL (74-106); HDL Cholesterol 62 mg/dL (40-60); Magnesium 2.5 mg/dL (1.8-2.4); Potassium 4.1 mmol/L (3.5-5.1); Sodium 143 mmol/L (136-145); Thyroid Stimulating Hormone 1.073 uIU/mL (0.358-3.740); Total Protein 7.0 g/dL (6.4-8.2); Triglycerides 66 mg/dL (<=150); Uric Acid 4.1 mg/dL (2.6-6.0); VLDL CHOLESTEROL 13.2 mg/dL
== END 2025-07-08 11:19 | disposition home or self-care (01) ==
LOC: LAB 11:21
PROVIDERS: PCP Family Medicine; Visit Provider Family Medicine
DX: E78.00 Pure hypercholesterolemia, unspecified (principal); I12.9 Hypertensive chronic kidney disease with stage 1 through stage 4 chronic kidney disease, or unspecified chronic kidney disease; R53.82 Chronic fatigue, unspecified; E83.42 Hypomagnesemia; E55.9 Vitamin D deficiency, unspecified; M1A.00X0 Idiopathic chronic gout, unspecified site, without tophus (tophi)
CPT/HCPCS: 36415; 80053; 80061; 82043; 82306; 82570; 83735; 84439; 84443; 84481; 84550; 85025

== ENCOUNTER 2025-08-17 10:11 | Outpatient (OUT) | payer MEDICARE, MEDICAID, SELFPAY ==
--- OUTSIDE RECORDS SUMMARY | 2025-08-17 10:14 | XMS_ITS | Clinical Summary ---
Author Organization [facility] Address [address] [place] [address] Phone Care Team Providers Care Shotblast Operator Name Role Phone Conrad Sosa DO Primary Care Provider Allergies Active AllergyReactionsCriticalityNoted DateCommentsAspirinHives,Rash,Shortness of breath,UgtyolqOlhf00/09/2013LatexHives,Itching,NhfiKiq78/06/2023Penicillins Shortness of breath,Hives,Rash,LkhflzoQvcv60/11/2009Sulfa (Sulfonamide Antibiotics)Shortness of breath,Hives,Itching,NjljGpck95/11/2009 Medications MedicationSigDispense QuantityRefillsLast FilledStart DateEnd DateStatus albuterol 2.5 mg /3 mL (0.083 %) nebulizer solution Take 3 mL (2.5 mg) by nebulization every 6 hours if needed for wheezing or shortness of breath.Active alendronate (Fosamax) 70 mg tablet Take 1 tablet (70 mg) by mouth every 7 days.08/16/2018Active allopurinol (Zyloprim) 100 mg tablet Take 2 tablets (200 mg) by mouth once daily.05/06/2019Active bumetanide (Bumex) 0.5 mg tablet Take 1 tablet (0.5 mg) by mouth 2 times a day.Active loratadine (Claritin) 10 mg tablet Take 1 tablet (10 mg) by mouth once daily as needed for allergies.Active clopidogrel (Plavix) 75 mg tablet Take 1 tablet (75 mg) by mouth once daily.11/17/2021Active ferrous sulfate 324 mg (65 mg elemental iron) EC tablet (delayed release) Take 1 tablet (65 mg) by mouth once daily.05/09/2019Active fluconazole (Diflucan) 100 mg tablet Take 1 tablet (100 mg) by mouth once daily.Active fluticasone (Flonase) 50 mcg/actuation nasal spray Administer 2 sprays into each nostril once daily.Active gabapentin (Neurontin) 300 mg capsule Take 1 capsule (300 mg) by mouth 3 times a day.Active hydrOXYzine HCL (Atarax) 10 mg tablet Take 1 tablet (10 mg) by mouth 3 times a day.05/06/2019Active magnesium oxide (Mag-Ox) 400 mg (241.3 mg magnesium) tablet Take 1 tablet (400 mg) by mouth once daily.Active midodrine (Proamatine) 2.5 mg tablet Take 1 tablet (2.5 mg) by mouth 2 times a day as needed.1Active tirzepatide (Mounjaro) 2.5 mg/0.5 mL pen injector Inject under the skin.2Active ondansetron (Zofran) 4 mg tablet Take 1 tablet (4 mg) by mouth every 8 hours if needed for nausea or vomiting. 1Active pantoprazole (ProtoNix) 40 mg EC tablet Take 1 tablet (40 mg) by mouth twice a day.05/06/2019Active budesonide-formoteroL (Symbicort) 160-4.5 mcg/actuation inhaler Inhale 2 puffs twice a day.Active temazepam (Restoril) 30 mg capsule Take 1 capsule (30 mg) by mouth as needed at bedtime for sleep or anxiety. 05/06/2019Active tiZANidine (Zanaflex) 4 mg capsule Take 1 capsule (4 mg) by mouth 2 times a day.Active Active Problems ProblemNoted DateDiagnosed DateChronic right-sided congestive heart failure 09/23/2023KD (chronic kidney disease), stage III09/23/20232686Fslfgqiiz01/06/2023 Edema09/23/20233908Wbqfgvisuuf05/06/2023History of bariatric bxbljss9309/23/2023 Obstructive sleep apnea kjtebbsp98/06/2023OPD (chronic obstructive pulmonary disease)05/30/2023Dyspnea on ioduulhm28/09/2018Pulmonary HTN07/06/2017 Immunizations ImmunizationAdministration DatesNext DueFlu vaccine, quadrivalent, no egg protein, age 6 month or greater (FLUCELVAX)08/02/2019Influenza, Seasonal, Quadrivalent, Rkvvvusqdg91/20/2022Influenza, Fdodbqkmapa02/01/2020Influenza, injectable, MDCK, mkkswqlsszcu53/01/2018Influenza, trivalent, adjuvanted 08/06/2020Pneumococcal conjugate vaccine, 13-valent (PREVNAR 13)07/19/2018 Pneumococcal polysaccharide vaccine, 23-valent, age 2 years and older (PNEUMOVAX 23)08/19/2020,08/02/2019,07/19/2019,12/18/2011 Social History Tobacco UseTypesPacks/DayYears UsedDateSmoking Tobacco: FormerCigarettes Smokeless Tobacco: Never Tobacco Cessation:Counseling Given: Not Answered Alcohol UseStandard Drinks/WeekCommentsYes0 (1 standard drink = 0.6 oz pure alcohol)rareCommentsUnknownSex and Gender InformationValueDate Recorded Sex Assigned at BirthNot on fileLegal ZjnNnbqvu25/25/2022 1:39 PM ESTGender IdentityNot on fileSexual OrientationNot on file Last Filed Vital Signs Vital SignReadingTime TakenCommentsBlood Cucwwmyz727/7009/25/2022 1:14 PM EST Wjcex556809/25/2022 1:14 PM ESTTemperature--Respiratory Rate--Oxygen Saturation-- Inhaled Oxygen Concentration--Xaoons789 kg (248 lb)09/25/2022 1:14 PM ESTHeight 160 cm (5' 3 )09/25/2022 1:14 PM ESTBody Mass Index43.9309/25/2022 1:14 PM EST Plan of Treatment Health MaintenanceDue DateLast DoneCommentsCT Msndosmhwegj1955Colonoscopy 1955olorectal Cancer Fqoymfjzb1955Creatinine Level1955FIT-DNA (Cologuard)1955FIT1955Lipid Panel1955Medicare Annual Wellness Visit (AWV)1955Potassium Level07/26/19556787Mxjacmlvrsugq1955MMR Vaccines (1 of 1 - Standard series)1956Hepatitis C Jowzjlhri49/08/1973CKD: Urine Protein Asalgvdxl59/08/1974DTaP/Tdap/Td Vaccines (1 - Tdap)1977 Lzmjahmrb73/08/1995RSV High Risk: (Elderly (60+) or Population) (1 - Risk 50-74 years 1-dose series)2005Zoster Vaccines (1 of 2)2005Bone Density Scan07/26/20203248Qrozckrpvtylmd94/22/202104/22/2020Diabetes Screening /10/2022, 09/19/2022Influenza Vaccine (#1)/, 08/19/2020, 08/06/2020, Additional history existsCOVID-19 Vaccine ( - season)2025Pneumococcal LvaczslUloyyvjom83/01/2020, 08/02/2019, 07/19/2019, Additional history existsHIB VaccinesAged OutNo longer eligible based on patient's age to complete this topicHPV VaccinesAged OutNo longer eligible based on patient's age to complete this topicHepatitis A VaccinesAged OutNo longer eligible based on patient's age to complete this topicHepatitis B VaccinesAged OutNo longer eligible based on patient's age to complete this topic IPV VaccinesAged OutNo longer eligible based on patient's age to complete this topicMeningococcal VaccineAged OutNo longer eligible based on patient's age to complete this topicRotavirus VaccinesAged OutNo longer eligible based on patient's age to complete this topic Procedures Procedure NamePriorityDate/TimeAssociated DiagnosisCommentsECHOCARDIOGRAMRoutine 02/08/2020 from Last 3 Months or Most Recently Relevant to Health Maintenance Results * Echocardiogram (02/08/2020)Specimen (Source)Anatomical Location / Laterality Collection Method / VolumeCollection TimeReceived Time02/08/2020 [facility] RADIOLOGY SYSTEM - 02/08/2020 12:00 AM EDT ?[facility] [address], [address], [place], [place] [address] ? TRANSTHORACIC ECHOCARDIOGRAM REPORT Patient Name: ? VILMA Yepez Physician: ?? [id number] Luis Castanon MD Study Date: ? 02/08/2020 Referring Physician: Martell Castanon MD MRN/PID: ?[id number] ??PCP: ? Conrad Sosa Accession/Order#: [id number] Department Location: [facility] Date of : ?1955 Fellow: Gender: ? F ? Nurse: Admit Date: ? Chassis Wirer: ? Jennifer Ceballos RDCS, RVT Height: ? 160.02 cm CC Report to: Weight: ? 111.59 kg Study Type: ?Echocardiogram BSA: ?2.11 m2 Blood Pressure: 142 /80 mmHg Diagnosis/ICD: R06.02-Shortness of breath Indication: ?Right CHF, COPD, Diabetes, HTN, Edema, Forme Smoker, JEREMY, ? CKD-Stage IV, Morbid Obesity-s/p Gastric Bypass Procedure/CPT: Echo Complete w Full Doppler-[id number] Study Detail: The following Echo studies were performed: 2D, M-Mode, Doppler and ?color flow. PHYSICIAN INTERPRETATION: Left Ventricle: The left [...] normal. There is no indication of pulmonic valveregurgitation. Pericardium: There is no pericardial effusion noted. [...] for comparison. QUANTITATIVE DATA SUMMARY: 2D MEASUREMENTS: ? Normal Ranges: Ao Root d: ? 2.60 cm ?? (2.0-3.7cm) LAs: ? 3.50 cm ?? (2.7-4.0cm) RVIDd: ? 3.60 cm ?? (0.9-3.6cm) IVSd: ?0.90 cm ?? (0.6-1.1cm) LVPWd: ? 1.00 cm ?? (0.6-1.1cm) LVIDd: ? 4.60 cm ?? (3.9-5.9cm) LVIDs: ? 3.60 cm LV Mass Index: 70.1 g/m2 LV % FS ?21.7 % LV DIASTOLIC FUNCTION: ? Normal Ranges: MV Peak E: ?0.94 m/s (0.7-1.2 m/s) MV Peak A: ?1.01 m/s (0.42-0.7 m/s) E/A Ratio: ?0.93 ? (1.0-2.2) MV lateral e' 0.09 m/s MV medial e' ??0.05 m/s E/e' Ratio: 11.00 (<8.0) MITRAL VALVE: ? Normal Ranges: MV Vmax: 1.07 m/s (<1.3m/s) MV peak P.6 mmHg (<5mmHg) MV mean P.0 mmHg (<48mmHg) MITRAL INSUFFICIENCY: ? Normal Ranges: MR Vmax: 434.00 cm/s AORTIC VALVE: ?Normal Ranges: AoV Vmax: 1.51 m/s (<1.7m/s) AoV Peak P.1 mmHg (<20mmHg) AoV Mean PG: ? 4.0 mmHg (1.7-11.5mmHg) LVOT Max Charles: 0.86 m/s (<1.1m/s) AoV VTI: ? 33.30 cm (18-25cm) LVOT VTI: ?22.20 cm LVOT Diameter: ? 2.10 cm ??(1.8-2.4cm) AoV Area, VTI: ? 2.31 cm2 (2.5-5.5cm2) AoV Area,Vmax: ? 1.98 cm2 (2.5-4.5cm2) AoV Dimensionless Index: 0.67 PULMONIC VALVE: ?Normal Ranges: PV Max Charles: 0.8 m/s ?? (0.6-0.9m/s) PV Max PG: ??2.5 mmHg PIEDV: ?1.65 m/s PADP: ? 15.9 mmHg [id number] Luis Castanon MD Electronically signed on 02/08/2020 at 4:38:48 PM Final Procedure Note Conversion, Syngo - 11/21/[address], [address] [address] TRANSTHORACIC ECHOCARDIOGRAM REPORT Patient Name: VILMA GLADYS Yepez Physician: [id number] Luis Croft Study Date: 02/08/2020 Referring Physician: Martell Croft MRN/PID: [id number] PCP: Conrad Sosa Accession/Order#: [id number] Department Location: [facility] Date of : 1955 Fellow: Gender: F Nurse: Admit Date: Chassis Wirer: Jennifer Ceballos [facility],T Height: 160.02 cm CC Report to: Weight: 111.59 kg Study Type: Echocardiogram BSA: 2.11 m2 Blood Pressure: 142 /80 mmHg Diagnosis/ICD: R06.02-Shortness of breath Indication: Right CHF, COPD, Diabetes, HTN, Edema, Forme Smoker, JEREMY, CKD-Stage IV, Morbid Obesity-s/p Gastric Bypass Procedure/CPT: Echo Complete w Full Doppler-[id number] Study Detail: The following Echo studies were [...] mmHg PIEDV: 1.65 m/s PADP: 15.9 mmHg [id number] Luis Castanon MD Electronically signed on 02/08/2020 at 4:38:48 PM Final Authorizing ProviderResult TypeResult StatusSyngo ConversionCV ECHO PROCEDURES Final ResultPerforming OrganizationAddressCity/State/ZIP CodeAur[facility] Number [facility] RADIOLOGY SYSTEM [facility] Anywhere [address] from Last 3 Months or Most Recently Relevant to Health Maintenance Insurance Care Teams Team MemberRelationshipSpecialtyStart DateEnd Date Conrad Sosa DO [address] [place] [phone] [facility] - Dyuebwq80/8/22
--- OUTSIDE RECORDS SUMMARY | 2025-08-17 10:14 | XMS_ITS | Clinical Summary ---
Author Organization [facility] Address [address] [place], [place] [address] Care Team Providers Care Animal Chiropractor Name Role Phone Conrad Sosa Primary Care Provider [phone] Italo Ann MD Unavailable [phone] Allergies Active AllergyReactionsCriticalityNoted FseqIeugslhxIxefjRwau17/12/2017 TstsccdlrjSubt23/12/2017Sulfa (Sulfonamide Antibiotics)Rash06/30/2017 Medications MedicationSigDispense QuantityRefillsLast FilledStart DateEnd DateStatus hydrOXYzine HCl (ATARAX) 10 mg tablet Take by mouth three times daily as needed.Active celecoxib (CELEBREX) 200 mg capsule Take by mouth twice daily.Active temazepam (RESTORIL) 15 mg cap Take by mouth at bedtime as needed.Active rOPINIRole (REQUIP) 0.5 mg tablet Take 0.5 mg by mouth daily at bedtime.Active CALCIUM POLYCARBOPHIL (FIBERCON ORAL) Take by mouth.Active tiZANidine HCl 4 mg capsule Take by mouth daily at bedtime.Active pantoprazole (PROTONIX) 40 mg injection Inject intravenously DAILY (6 AM).Active lisinopril (ZESTRIL, PRINIVIL) 40 mg tablet Indications:Chronic combined systolic and diastolic congestive heart failure (HCC),Essential hypertensionTake 1 tablet by mouth once daily. 90 tablet Active pantoprazole (PROTONIX) 40 mg grps Take 40 mg by mouth twice daily before meals (0600/1600).Active cetirizine (ZYRTEC) 10 mg tablet Take 10 mg by mouth once daily.Active oxyCODONE-acetaminophen (PERCOCET) 5-325 mg tablet Take 1 tablet by mouth as needed.Active fluticasone (FLONASE) 50 mcg/actuation nasal spray Use 2 Sprays in each nostril twice daily at 6AM and 9PM.Active albuterol HFA (PROVENTIL HFA, VENTOLIN HFA) 90 mcg/actuation inhaler Inhale 2 Puffs as instructed as needed for Wheezing/Shortness of Breath.Active budesonide-formoterol (SYMBICORT) 160-4.5 mcg/actuation inhaler Inhale 2 Puffs as instructed twice daily.Active alendronate (FOSAMAX) 70 mg tablet 08/16/2018Active bumetanide (BUMEX) 1 mg tablet Take 1 tablet by mouth once daily. 30 tablet Active Active Problems ProblemNoted DateDiagnosed DateDyspnea on sowfpsss30/09/2018Localized edema 05/27/2018Cramps of left lower njjcwwejs51/21/2018Chronic combined systolic and diastolic congestive heart kuazgtg5207/06/2017Pulmonary HTN07/06/2017Essential vvjlvtkfmeew66/18/2017OSA (obstructive sleep apnea)07/06/2017Gastroesophageal reflux jgskmpl5607/06/20172106Zfibxrdrwuoc46/18/2017Restrictive lung skjhxrq4207/06/2017 Obesity, Class III, BMI >= 40 (morbid obesity) E66.01006/30/2017 Social History Tobacco UseTypesPacks/DayYears UsedDateSmoking Tobacco: Passive Smoke Exposure - Never SmokerCigarettesSmokeless Tobacco: NeverAlcohol UseStandard Drinks/Week CommentsNo0 (1 standard drink = 0.6 oz pure alcohol)Area Deprivation IndexAnswer Date RecordedNational Score (1-100), lower number is lower riskNot on file 09/25/2020State Score (1-10), lower number is lower riskNot on file09/25/2020 Data from: https://www.neighborhoodatlas.medicine.[facility].edu/. Last address used for calculationNot on file09/25/2020CommentsNoSex and Gender Information ValueDate RecordedSex Assigned at BirthNot on fileLegal KblCilfbu31/02/2012 9:52 AM ESTGender IdentityNot on fileSexual OrientationNot on file Last Filed Vital Signs Vital SignReadingTime TakenCommentsBlood Nhcsntsp001/6808/27/2018 12:31 PM EST Pgxrd4736/06/2018 12:31 PM ESTTemperature--Respiratory Ffpo963810/27/2017 12:31 PM ESTOxygen Iimqknmzoe795%08/27/2018 12:31 PM ESTInhaled Oxygen Concentration-- Onstyb025 kg (269 lb)08/27/2018 12:31 PM ILMZorwro125 cm (5' 3 )08/27/2018 12:31 PM ESTBody Mass Index47.6508/27/2018 12:31 PM EST Plan of Treatment Health MaintenanceDue DateLast DoneCommentsAnxiety Phnoxkldm18/08/1973Depression Yrgdeeees47/08/1973Hepatitis C Gxnhjmwkz91/08/1973DTaP,Tdap,Td Vaccine (1 - Tdap)1974Mammogram Igqxzovsd34/08/1995CT Bfjhmygnjpof69/08/2000Cologuard (FIT-DNA)07/26/20001738Jwpvxglglsg66/08/2000Colorectal Cancer Pdjaurzac25/08/2000 Diabetes Akdrkhphz39/08/2000Fecal Occult Blood2000Lipid Screening 07/26/20001861Ewpuibzlrawqv07/08/2000Shingrix Vaccine (1 of 2)2005Bone Density Yisnakhqu10/08/2020Pneumococcal Vaccine: 50+ (3 of 3 - PCV20 or PCV21)07/19/2023 07/19/2018, 12/18/2011dvance Directive Rurxqvetjz09/01/2025Covid-19 Vaccine (1 - 2024- season)2025Influenza Vaccine (#1), 08/20/2017RSV Vaccine (1 - 1-dose 75+ series)2030 Insurance Care Teams Team MemberRelationshipSpecialtyStart DateEnd Date Conrad Sosa DO PCP - GeneralFamily Medicine06/25/17 Italo Ann MD [address] [phone] Primary Staff PhysicianCardiology01/04/19
[2025-08-17 10:56] LABS: Hematocrit 40.6 % (36.0-48.0); Hemoglobin 12.6 g/dL (12.0-16.0); Immature Granulocytes Abs Auto 0.02 10^3/uL (0.00-0.03); Immature Granulocytes Pct Auto 0.3 % (0.0-0.5); Lymphocytes Absolute Auto 1.8 10^3/uL (1.2-3.8); Mean Corpuscular HGB Conc 31.0 g/dL (29.9-35.2); Mean Corpuscular Hemoglobin 28.2 pg (26.7-34.0); Mean Corpuscular Volume 90.8 fL (81.0-99.0); Platelet Count 292 10^3/uL (150-450); Red Blood Count 4.47 10^6/uL (4.20-5.40); White Blood Count 7.2 10^3/uL (4.0-11.0)
[2025-08-17 11:46] LABS: Albumin Level 3.6 g/dL (3.4-5.0); Anion Gap 14.1; Blood Urea Nitrogen 26.0 mg/dL (7.0-18.0); Calcium 9.2 mg/dL (8.5-10.1); Carbon Dioxide 25.9 mmol/L (21.0-32.0); Chloride 108 mmol/L (98-107); Estimated GFR (African America >60 (>=60 mL/min/1.73m^2); Estimated GFR (Non-African Ame 57 (>=60 mL/min/1.73m^2); Glucose 108 mg/dL (74-106); Potassium 4.0 mmol/L (3.5-5.1); Sodium 144 mmol/L (136-145)
== END 2025-08-17 10:12 | disposition home or self-care (01) ==
LOC: LAB 10:11
PROVIDERS: PCP Family Medicine
DX: T84.59XD Infection and inflammatory reaction due to other internal joint prosthesis, subsequent encounter (principal); Z79.2 Long term (current) use of antibiotics
CPT/HCPCS: 36415; 80069; 85025; 85652; 86140

== ENCOUNTER 2025-08-29 14:00 | Outpatient (OUT) | payer MEDICARE, MEDICAID, SELFPAY ==
--- OUTSIDE RECORDS SUMMARY | 2025-08-29 14:03 | XMS_ITS | Clinical Summary ---
Author Organization [facility] Address [address] [place] [address] Phone Care Team Providers Care Human Resources Mgr Name Role Phone Conrad Sosa DO Primary Care Provider Allergies Active AllergyReactionsCriticalityNoted DateCommentsAspirinHives,Rash,Shortness of breath,FoihzhnSaaj45/09/2013LatexHives,Itching,MkwfFin18/06/2023Penicillins Shortness of breath,Hives,Rash,SvuheidLyol20/11/2009Sulfa (Sulfonamide Antibiotics)Shortness of breath,Hives,Itching,TcfoAfnm31/11/2009 Medications MedicationSigDispense QuantityRefillsLast FilledStart DateEnd DateStatus albuterol [...] heart failure 09/23/2023KD (chronic kidney disease), stage III09/23/20232405Suytdlahd54/06/2023 Edema09/23/20234299Cuvahhiqqxj78/06/2023History of bariatric baypime8709/23/2023 Obstructive sleep apnea mbmioujz73/06/2023OPD (chronic obstructive pulmonary disease)05/30/2023Dyspnea on pkklcbom66/09/2018Pulmonary HTN07/06/2017 Immunizations ImmunizationAdministration DatesNext DueFlu vaccine, quadrivalent, no egg protein, age 6 month or greater (FLUCELVAX)08/02/2019Influenza, Seasonal, Quadrivalent, Drxstovhwz56/20/2022Influenza, Muhgoecyipw23/01/2020Influenza, injectable, MDCK, lreyopffmriw06/01/2018Influenza, trivalent, adjuvanted 08/06/2020Pneumococcal conjugate vaccine, 13-valent (PREVNAR 13)07/19/2018 Pneumococcal polysaccharide vaccine, 23-valent, age 2 years and older (PNEUMOVAX 23)08/19/2020,08/02/2019,07/19/2019,12/18/2011 Social History Tobacco UseTypesPacks/DayYears UsedDateSmoking Tobacco: FormerCigarettes Smokeless Tobacco: Never Tobacco Cessation:Counseling Given: Not Answered Alcohol UseStandard Drinks/WeekCommentsYes0 (1 standard drink = 0.6 oz pure alcohol)rareCommentsUnknownSex and Gender InformationValueDate Recorded Sex Assigned at BirthNot on fileLegal PboEjhyel62/25/2022 1:39 PM ESTGender IdentityNot on fileSexual OrientationNot on file Last Filed Vital Signs Vital SignReadingTime TakenCommentsBlood Ckcsnfgk826/7009/25/2022 1:14 PM EST Doqrs858109/25/2022 1:14 PM ESTTemperature--Respiratory Rate--Oxygen Saturation-- Inhaled Oxygen Concentration--Rsirla763 kg (248 lb)09/25/2022 1:14 PM ESTHeight 160 cm (5' 3 )09/25/2022 1:14 PM ESTBody Mass Index43.9309/25/2022 1:14 PM EST Plan of Treatment Health MaintenanceDue DateLast DoneCommentsCT Zlutzrzenugq1955Colonoscopy 1955olorectal Cancer Hpfoewfcn1955Creatinine Level1955FIT-DNA (Cologuard)1955FIT1955Lipid Panel1955Medicare Annual Wellness Visit (AWV)1955Potassium Level07/26/19557281Etkxcumlzsvbp1955MMR Vaccines (1 of 1 - Standard series)1956Hepatitis C Fjpsdfutl20/08/1973CKD: Urine Protein Krcwfhjtj61/08/1974DTaP/Tdap/Td Vaccines (1 - Tdap)1977 Wqtqhrvqt15/08/1995RSV High Risk: (Elderly (60+) or Population) (1 - Risk 50-74 years 1-dose series)2005Zoster Vaccines (1 of 2)2005Bone Density Scan07/26/20207601Ypvgqplkcddbeq61/22/202104/22/2020Diabetes Screening /10/2022, 09/19/2022Influenza Vaccine (#1)/, 08/19/2020, 08/06/2020, Additional history existsCOVID-19 Vaccine ( - season)2025Pneumococcal ZemytceLqwmvymjv55/01/2020, 08/02/2019, 07/19/2019, Additional history existsHIB VaccinesAged OutNo [...] Laterality Collection Method / VolumeCollection TimeReceived Time02/08/2020 [facility] RADIOLOGY SYSTEM - 02/08/2020 12:00 AM EDT ?[facility] [address], [address], [place], [place] [address] ? TRANSTHORACIC ECHOCARDIOGRAM REPORT Patient Name: ? VILMA Yepez Physician: ?? [id number] Luis Castanon MD Study Date: ? 02/08/2020 Referring Physician: Martell Castanon MD MRN/PID: ?[id number] ??PCP: ? Conrad Sosa Accession/Order#: [id number] Department Location: [facility] Date of : ?1955 Fellow: Gender: ? F ? Nurse: Admit Date: ? Threshing Operator: ? Jennifer Ceballos RDCS, RVT Height: ? 160.02 cm CC Report to: Weight: ? 111.59 kg Study Type: ?Echocardiogram BSA: ?2.11 m2 Blood Pressure: 142 /80 mmHg Diagnosis/ICD: R06.02-Shortness of breath Indication: ?Right CHF, COPD, Diabetes, HTN, Edema, Forme Smoker, JEREMY, ? CKD-Stage IV, Morbid Obesity-s/p Gastric Bypass Procedure/CPT: Echo Complete w Full Doppler-[id number] Study Detail: The following Echo studies were [...] PIEDV: ?1.65 m/s PADP: ? 15.9 mmHg [id number] Luis Castanon MD Electronically signed on 02/08/2020 at 4:38:48 PM Final Procedure Note Conversion, Syngo - 11/21/[address], [address] [address] TRANSTHORACIC ECHOCARDIOGRAM REPORT Patient Name: VILMA GLADYS Yepez Physician: [id number] Luis Croft Study Date: 02/08/2020 Referring Physician: Martell Croft MRN/PID: [id number] PCP: Conrad Sosa Accession/Order#: [id number] Department Location: [facility] Date of : 1955 Fellow: Gender: F Nurse: Admit Date: Threshing Operator: Jennifer Ceballos [facility],T Height: 160.02 cm CC Report to: Weight: 111.59 kg Study Type: Echocardiogram BSA: 2.11 m2 Blood Pressure: 142 /80 mmHg Diagnosis/ICD: R06.02-Shortness of breath Indication: Right CHF, COPD, Diabetes, HTN, Edema, Forme Smoker, JEREMY, CKD-Stage IV, Morbid Obesity-s/p Gastric Bypass Procedure/CPT: Echo Complete w Full Doppler-[id number] Study Detail: The following Echo studies were [...] mmHg PIEDV: 1.65 m/s PADP: 15.9 mmHg [id number] Luis Castanon MD Electronically signed on 02/08/2020 at 4:38:48 PM Final Authorizing ProviderResult TypeResult StatusSyngo ConversionCV ECHO PROCEDURES Final ResultPerforming OrganizationAddressCity/State/ZIP CodeA[facility] Number [facility] RADIOLOGY SYSTEM [facility] Anywhere [address] from Last 3 Months or Most Recently Relevant to Health Maintenance Insurance Care Teams Team MemberRelationshipSpecialtyStart DateEnd Date Conrad Sosa DO [address] [place] [phone] [facility] - Visdkie15/8/22
--- OUTSIDE RECORDS SUMMARY | 2025-08-29 14:14 | XMS_ITS | CCD ---
Author Organization [facility] Care Team Providers [employer] Name Role Phone ITALO ANN Unavailable Unavailab [...] Unavailable SOSA, PETER WILLIS Unavailable Unavailab le Schwbossmanr, Elda E Unavailable [phone] Unavailable Unavailable Yuan Romeo Unavailable Reynaldo Trejo Jr. Unavailable Schwerer, Elda Unavailable Schwerer, Elda Unavailable Schwerer, Elda Unavailable Laquita Hayden Unavailable Marva Hunt Unavailable Reynaldo Trejo Unavailable Wes Jason Unavailable Mabel Henderson Unavailable Schwerer, DO Elda E Primary Care Provider DIANE Epps Attending Provider DIANE Epps Other Provider Ian DO Peter Harrell Primary Care Provider MD Laquita Hayden Attending Provider SosaDO Peter Attending Provider [phone] Ricardoshemar, [facility] Deidra Holley Emergency Provider Peter Sosa Unavailable Irvin, NIURKA Serna Referring Unavailable Traboulssi, Dr. Smith Attending Unavaila ble Sosa, Dr. Peter Willis Primary Care Unava ilable Traboulssi, Dr. Smith Attending Unavaila ble Traboulssi, Dr. Smith Referring Unavaila ble Sosa, Dr. Peter Willis Primary Care Unava ilable Irvin, TECHNICAL ACCOUNT MANAGER Daphne Attending Unavailable Angelo, TECHNICAL ACCOUNT MANAGER Daphne Referring Unavailable Sosa Peter GAMING Primary Care Provider Sosa DOPeter Primary Care Provider BRUCE, DR LYNN Admitting [...] Unavailable SOSA, DR PETER Harrell Attending Unavailable SCHWERER, ELDA Primary Care Unavailable SOSA, DR PETER Harrell Consulting Unavailable MISC, DR HAYNES Admitting Unavailable SOSA, DR PETER Harrell Primary Care Unavailable MISC, DR HAYNES Attending Unavailable MISC, DR HAYNES Consulting Unavailable ELASHI, DR LATIF Admitting Unavailable ELASHI, DR LATIF Attending Unavailable ELASHI, DR LATIF Consulting Unavailable SCHWERER, ELDA Primary Care Unavailable SCHWERER, ELDA Primary Care Unavailable GIULIA DURBIN Consulting Unavailable GRIMALDO ., DR LUCÍA Lau Attending Unavailable GRIMALDO ., DR LUCÍA Lau Admitting Unavailable SPENSER, DR Lucinda Harrell Admitting Unavailable SOSA, DR PETER Harrell Primary Care Unavailable SPENSER, DR Lucinda Harrell Attending Unavailable SPENSER, DR Lucinda Harrell Consulting Unavailable GRIMALDO ., DR LUCÍA Lau Attending Unavailable SOSA, DR PEETR Harrell Primary Care Unavailable PICHARDO ., GIULIA Consulting Unavailable GRIMALDO ., DR LUCÍA Lau Admitting Unavailable LAKSHMIPATHY ., NARANA CRISTINA Admitting Asiya vailable SOSA, DR PETER Harrell Primary Care Unavailable LAKSHMIPATHY ., MARLENA Attending Asiya vailable SOSA, DR PETER Harrell Primary Care Unavailable PICHARDO ., GIULIA Consulting Unavailable GRIMALDO ., DR LUCÍA Lau Attending Unavailable GRIMALDO ., DR LUCÍA Lau Admitting Unavailable ELDA SIBLEY Primary Care Unavailable GRIMALDO ., DR LUCÍA Lau Attending Unavailable GRIMALDO ., DR LUCÍA Lau Consulting Unavailable GRIMALDO ., DR LUCÍA Lau Admitting Unavailable SÁNCHEZLARS MUKHERJEELE Consulting Unavailable PICHARDO ., GIULIA Consulting Unavailable GRIMALDO ., DR LUCÍA Lau Admitting Unavailable SOSA, DR PETER Harrell Primary Care Unavailable GRIMALDO ., DR LUCÍA Lau Attending Unavailable PAY ., DR COOLEY Admitting Unavailable SOSA, DR PETER Harrell Primary Care Unavailable PAY ., DR COOLEY Attending Unavailable PAY ., DR COOLEY Consulting Unavailable COELLO ., MR VLAD Consulting Unavailable AHDOOT, NAVEEN Consulting Unavailable GELBARTLUCILA Consulting Unavailable SOSA, DR PETER Harrell Primary Care Unavailable MISC, DR HAYNES Admitting Unavailable MISC, DR HAYNES Attending Unavailable BUNTING, DR CEDEÑO Admitting Unavailable BUNTING, DR CEDEÑO Attending Unavailable SOSA, DR PETER Harrell Primary Care Unavailable SOSA, DR PETER Harrell Primary Care Unavailable MISC, DR HAYNES Admitting Unavailable MISC, DR HAYNES Attending Unavailable Sosa, DO Peter Harrell Primary Care Provider MD Laquita Hayden Attending Provider Anusha Barber MD Unavailable Unavailable Darci, Glen Ta Referring Unavaila ble Sarmini, Glen Ta Admitting Unavaila ble Sarmini, Glen Ta Attending Unavaila ble Sarmini, Geln Ta Attending Unavaila ble SOSAPETER Referring Unavailable Kaur Pierre PA-C Unavailable Unavailable Richard BRYANT, Anusha Unavailable Unavailable Richard BRYANT, Anusha Unavailable Unavailable Ignacio MAGANA, Kaur Unavailable Unavailable Ignacio MAGANA, Kaur Unavailable Unavailable Unavailable Primary Care Provider Unavaillilia Corbett MD, Souravs Provider Primary Care Provi rosalio ESTRELLA ANGELO Attending Unavailable ESTRELLA ANGELO Admitting Unavailable IACOB, KIMBERLY Consulting Unavailable AHMAD, ALI F O Consulting Unavailable ESTRELLA ANGELO Referring Unavailable Sosa Peter BRYANT Primary Care Provider LEAH BARRERA Attending Unavailable DAPHNEY CONSTANTINO Attending Unavailable LEAH BARRERA Attending Unavailable Sosa Peter GAMING Attending Provider Peter Sosa Attending Unavailable SosaPeter escobedo Admitting Unavailable Sosa Peter GAMING Primary Care Provider VLAD WADE Referring Unavailable MARYCRUZVLAD Attending Unavailable SOSAPETER Primary Care Unavailable VLAD JOEL Attending Unavailable MARYCRUZVLAD Referring Unavailable SOSA, PETER Primary Care Unavailable MARYCRUZVLAD Attending Unavailable MARYCRUZVLAD Referring Unavailable SOSA, PETER Primary Care Unavailable MARYCRUZVLAD Attending Unavailable MARYCRUZVLAD Referring Unavailable SOSA, PETER Primary Care Unavailable Shannon BRYANT, Mabel Attending Provider [phone] SosaPeter escobedo DO Primary Care Provider Glen Bejarano Talrosa Admitting Unavaila ble Chaitanya Bejaranohammad Talal Attending Unavaila ble Sarminmanuel Carroll Talal Referring Unavaila ble SarminiChaitanyaCarroll Talal Attending Unavaila ble Aric BRYANT, Noms Provider Primary Care Provi rosalio Allergies Allergy ClassificationReported Allergen(s)Allergy TypeDate of OnsetReaction(s) Facility (20 sources)Latex; Translations: [LATEX]Propensity to adverse reactions to drug (disorder)12-43-5530Ikhrh, Hives, Itching, [facility] ([facility] source)penicillin; Translations: [PENICILLIN]Drug Orpvuje43-51-4169UPX [facility] (18 sources)Sulfonamides (Antibiotic); Translations: [SULFA (SULFONAMIDE ANTIBIOTICS)]Propensity to adverse reactions to drug (disorder)12-28-1307Regrn, Shortness of breathK[facility] (1 source)Adhesive agent; Translations: [adhesive]Propensity to adverse reactions (disorder)40-62-3226AKIUky [facility] (16 sources)Penicillins; Translations: [Penicillins]Drug allergy (disorder) 99-97-9611UWS, Hives, Hives, Rash, SwellingThe [facility] (1 source)RED RX SINUS TABLETDrug allergy (disorder)24-75-7327BXOJsl [facility] (20 sources)Aspirin; Translations: [Aspirin TABS]Drug Akcvdrh83-65-9109xtbnt, Shortness of breathNohedrick medical center [facility] Other (2 sources)Penicillins; Translations: [Penicillins]Allergy to drug (finding) Hives, Itching, Rash, OtherMP-Lake City Hospital And ClinicScott 250 DO Work Phone: (4 sources)Sulfonamides (Antibiotic); Translations: [Sulfa Drugs]Allergy to drug (finding)Hives, Rash, ItchingFormerly [facility] (2 sources)Latex Exam Gloves MISC; Translations: [Latex Exam Gloves MISC]Allergy to drug (finding)Hives, Itching, RashWoodwinds Health CampusVernon [place] [address] DO Work Phone: (20 sources)Furosemide; Translations: [Lasix]Drug Ynlhckg24-20-1606EbvdrlzUro [facility] Repository (20 sources)nabumetoneDrug Djigfha40-01-5756Euervqs, Unknown ReactionWood County Hospital (20 sources)Penicillin GDrug Cevjxcf21-72-4293egjbuZntkysxppWood County Hospital (20 sources)semaglutideDrug Ntyhrve66-17-0735jhkporopa, light headed, nausea [facility] (20 sources)SulfacetamideDrug AllergyhivesNohedrick medical center [facility] Other (20 sources)ADHESIVES AND TAPESPropensity to adverse vccciufme93-48-8054Jameosv, [facility] (6 sources)Adhesive Tape; Translations: [Adhesive tape]Allergy to substance 50-01-6315IbigLkrowxftdSt. John of God Hospital (20 sources)Aspirin; Translations: [Aspirin]Drug Rppsftw68-72-2962Boetf, Shortness Of Breath, [facility] (15 sources)IbuprofenDrug Qvxxtzf59-94-8614RkoqmQzzqgvz Health (2 sources)nickelDrug Epjxwsb49-91-6811NjnhujpIzhaekz Health (3 sources)PenicillinsDrug Ohqqujc09-05-6481Irtrx, Shortness of breath, Itching, [facility] (14 sources)Sulfamethoxazole / TrimethoprimDrug Mctngcd45-23-2916TfbgdviAfpzmhv Health (15 sources)traMADolDrug Tdubcmv69-92-0260KmjbbvwDgzaigd Health (2 sources)Adhesive Tape-SiliconesDrug Ckphawq81-00-2440PcarjVsbsowe Health (2 sources)Contact Metal AgentDrug Tvlkkby92-21-3912FpjouuvEdtvdcr Health (6 sources)bandaidsPropensity to adverse reactionsSalem Memorial District HospitalSaguaro Resources Other (20 sources)DULoxetineDrug Bjrsvwo22-09-8647Dvnuxza, Unknown ReactionWood County Hospital (14 sources)NylonPropensity to adverse qyocprswy31-15-4754VmwfctgBerwick Hospital Center (13 sources)SoapPropensity to adverse xruueroff23-42-3268WwywVwrukrn Health (1 source)nabumetoneDrug Akenlbl78-18-5724StwCleveland Clinic [facility] (2 sources)Sulfonamides (Antibiotic)Drug allergy (disorder)35-70-1486GpeCleveland Clinic [facility] (1 source)Misc-Other; Translations: [Misc-Other]Propensity to adverse reactions (disorder)47-95-0984Ekj [facility] Repository (8 sources)FurosemideDrug Ukoiaax15-87-0065GepgTinisydkoNorwalk Memorial Hospital (2 sources)Adhesive Tape; Translations: [Tape]Propensity to adverse reactions (disorder)[facility] Repository (1 source)BenzalkoniumDrug Pfbpnpm79-25-6233EgqoOvqTwin County Regional Healthcare (13 sources)nickel sulfateDrug Lolkckd21-87-9640StcqssuChr [facility] (13 sources)Sulfonamides (Antibiotic)Propensity to adverse reactions to drug 25-88-7683Bsdoh, Shortness Of Breath, Itching, Rash, UnknownBon [facility] (13 sources)Wound Dressing AdhesivePropensity to adverse reactions to drug 76-65-2114Axk [facility] (12 sources)FurosemideDrug Ahrwdyu13-76-0430VpuaYFDH Healthcare (12 sources)nabumetoneDrug Ubheeae51-76-0678ZOBS Healthcare (12 sources)PenicillinsDrug Pjcfolq67-69-3089Vyjzn, Itching, Rash, Shortness of breathNortheast Regional Medical Center (12 sources)SemaglutideAllergy to zytnwhued18-93-7085[facility] (11 sources)BenzalkoniumDrug Juhekhm33-78-2731GloxZBMM Healthcare Medications Current Medications MedicationDrug Class(es)DatesSig (Normalized)Sig (Original)0.5 ML tirzepatide 10 MG/ML Auto-Injector [Mounjaro] (3 sources)Start: 68-87-9126acunws 5 mg by subcutaneous injection every week Mounjaro 5 MG/0.5ML inject 5mg weekly Subcutaneous weekly Jul, Active Start: 65-60-5041tbacwb 5 mg by subcutaneous injection every weekMounjaro 5 MG/0.5ML inject 5mg weekly Subcutaneous weekly for 28 days Jul, Active 0.5 ML tirzepatide 15 MG/ML Auto-Injector [Mounjaro] (5 sources)Start: 88-83-1385Jymduvtj 7.5 MG/0.5ML 1 injector Subcutaneous weekly for 28 days Jul, Active0.5 ML tirzepatide 5 MG/ML Auto-Injector [Mounjaro] (8 sources)Start: 88-06-3078Cztdfhyn 2.5 MG/0.5ML 1 injector Subcutaneous weekly for 28 days Jul, ActiveStart: 11-74-6890Wxdjfwka 2.5 MG/0.5ML as directed Subcutaneous Jun, Activeacetaminophen 325 mg / HYDROcodone bitartrate 5 mg oral tablet (19 sources)Opioid Agonisttake 2 tablets by mouth every twelve hoursHYDROcodone- Acetaminophen 5-325 MG 2 TABLETS Orally TWICE A DAY ActiveHYDROcodone- Acetaminophen 5-325 MG 1 1/2 tablet as needed Orally ONCE A DAY Active acetaminophen 325 mg / oxyCODONE hydrochloride 5 mg oral tablet (20 sources)Opioid AgonistStart: 12-29-2023 End: 16-81-9761yosz 1 tablet by mouth every six hours as neededOxycodone- Acetaminophen 5-325 mg tablet Active 1 TAB PO Every 6 hours as needed July 12, 2025 1:59pm FreeTextSi tablet as needed Orally every 6 hrs; Note: Source Status: Taking; Provider: Agueda Valera ( ) Complies with drug therapyStart: 10-02-2022 End: 67-98-9428phpBCVEYU-acetaminophen (PERCOCET) 5-325 mg per tablet 1 tablet Start: 21-48-7163Pkudi: 06-23-2021 End: 09-82-7080rwga 1 tablet by mouth every six hours as needed for pain Oxycodone-Acetaminophen (Percocet) 5-325 mg tablet Discontinued 1 TAB PO Q6H as needed for pain 10 3 June 23, 2021 December 18, 2021 3:42pmStart: 05-06-2019 End: 41-04-3523ofob 1 tablet by mouth once daily as needed for painOxycodone- Acetaminophen 5-325 mg Tablet Discontinued 1 - 2 TAB PO Daily as needed for Pain May 06, 2019 12:00am December 18, 2021 3:42pm End: 22-01-0516wqgNHOGWV-acetaminophen (PERCOCET) 5-325 mg per tablet Take 1-2 tablets by mouth 2 (two) times a day if needed (pain). Max Daily Amount: 4 tablets 0 10/06/2022 Discontinued (Stop Taking at Discharge)albuterol 0.83 mg/ml inhalation solution (20 sources)beta2-Adrenergic AgonistStart: 88-56-4047nygy 2 puff(s) by inhalation every six hours as needed for wheezingalbuterol sulfate HFA (VENTOLIN HFA) 108 (90 Base) MCG/ACT inhaler Inhale 2 puffs into the lungs every 6 hours as needed for Wheezing 18 g 3 01/05/2025 ActiveStart: 40-29-7471Cvcmw: 64-37-0354remfhudlc (2.5 MG/3ML) 0.083% nebulizer solution Take 2.5 mg by nebulization every 4 (four) hours if needed 12/29/2023 ActiveStart: 12-29-2023 End: 06-77-3032fpre 3 mL by inhalation four times daily as neededAlbuterol Sulfate 2.5 mg /3 mL (0.083 %) solution for nebulization Active 2.5 MG INHALATION Four times daily as needed July 12, 2025 1:55pm FreeTextSiml Inhalation 4 times a day; Note: Source Status: Taking; Provider: Agueda Valera ( ) Complies with drug therapyStart: 03-19-2023 End: 17-19-8661qbdt 2.5 mg by inhalation every six hours as needed2.5 mg, nebulization, Every 6 hours PRN, wheezing, Starting on Pina 03/19/23 at 1631Start: 10-03-2022 End: 86-80-8030uyvmbsprc HFA (6.7 g/200 puff common canister) 90 mcg/actuation inhaler 2 puffStart: 10-02-2022 End: 14-48-3861dtze 2.5 mg by inhalation every six hours as needed2.5 mg, nebulization, Every 6 hours PRN, wheezing, Starting on Pina 10/02/22 at 1416 Start: 52-97-0145ismh 1 puff(s) by inhalation every four to six hours as needed Albuterol Sulfate 90 mcg/actuation Hfa Aerosol Inhaler Active 2 PUFF INHALATION EVERY 4-6 HOURS as needed for Shortness Of Breath May 09, 2019 12:00am Complies with drug therapytake 2 puff(s) by inhalation in the morning, then take 2 puff(s) by inhalation in the evening, thentake 2 puff(s) by inhalation at bedtimealbuterol HFA 90 mcg/act inhaler Inhale 2 puffs in the morning and 2 puffs in the evening and 2 puffs before bedtime. Active End: 66-66-0510haet 1 puff(s) by inhalation every four hoursalbuterol HFA (Ventolin HFA) 90 mcg/act inhaler Inhale 1 puff every 4 (four) hours if needed 01/18/2025 Discontinued (Therapy completed) End: 71-58-2298emtmlhcie (PROVENTIL) 2.5 MG/0.5ML NEBU nebulizer solution Take 0.5 mLs by nebulization every 4 hours as needed for Wheezing 01/05/2025 Discontinued (LIST CLEANUP)take 2 puff(s) by inhalation every six hours as needed for wheezingalbuterol sulfate HFA (VENTOLIN HFA) 108 (90 Base) MCG/ACT inhaler Inhale 2 puffs into the lungs every 6 hours as needed for Wheezing Suspendedtake 2 puff(s) by inhalation four times daily as neededVentolin HFA 108 (90 Base) MCG/ACT 2 puffs as needed Inhalation up to 4 times/day Activetake 1 [IU] by inhalation every four to six hours as neededAlbuterol Sulfate 1.25 MG/3ML Inhalation Nebulization Solution USE 1 UNIT DOSE IN NEBULIZER EVERY 4TO 6 HOURS NEEDED. Quantity: 0 Refills: 0 Ordered: 01-Oct-2021 DO ActiveAlbuterol Sulfate (2.5 MG/ 3 ML) 2.5 MG/3ML 0.083% Nebulization Solution (20 sources)Albuterol Sulfate (2.5 MG/ 3 ML) 2.5 MG/3ML 0.083% Nebulization Solution 3ml Inhalation 4 times a day Activealendronic acid 70 mg oral tablet (20 sources)BisphosphonateStart: 29-86-6701fkfg 1 tablet by mouth every week Alendronate 70 mg Tablet Active 70 MG PO every week May 06, 2019 12:00am Complies with drug therapyalendronate (Fosamax) 70 MG tablet Take 70 mg by mouth every 7 (seven) days Activeallopurinol 100 mg oral tablet (20 sources)Xanthine Oxidase InhibitorStart: 06-25-6137xgxv 1 tablet by mouth once dailyAllopurinol 100 mg tablet Active 100 MG PO Daily July 12, 2025 2:39pm Complies with drug therapyStart: 07-22-5138nuou 200 mg by mouth once orrnp088 mg, Oral, DAILY, First dose on Pina 01/05/25 at 1345, Until Discontinued Start: 05-06-2019 End: 48-34-0674vqma 2 tablets by mouth once dailyAllopurinol 100 mg Tablet Discontinued 200 MG PO Daily May 06, 2019 12:00am July 1252:42pm Start: 05-06-2019 End: 57-34-5974bsnq 200 mg by mouth once dailyAllopurinol Active 200 MG PO Daily May 06, 2019 12:00amazithromycin 250 mg oral tablet (8 sources)Macrolide AntimicrobialStart: 32-12-5662Jqpuh: 18-97-7014rvxtioyu 10 mg oral tablet (16 sources)gamma-Aminobutyric Acid-ergic AgonistStart: 19-46-8753xmzn 1 tablet by mouth twice dailyBaclofen 10 mg tablet Active 10 MG PO Twice daily January 25, 2022 12:00am Complies with drug therapybenzonatate 100 mg oral capsule (2 sources)Non-narcotic AntitussiveStart: 74-26-2616nkmk 1 capsule by mouth three times daily as needed for coughBenzonatate 100 mg capsule Active 100 MG PO Three times daily as needed for cough October 27, 2024 1:00am Complies with drug therapybisacodyl 5 mg delayed release oral tablet (3 sources)Stimulant LaxativeStart: 85-12-7105ccjb 1 tablet by mouth once daily Bisacodyl (Laxative (Bisacodyl)) 5 mg tablet,delayed release (DR/EC) Active 5 MG PO Daily 2024 12:00am Complies with drug therapyStart: 03-19-2023 End: 65-29-0145jdycgjxpD (DULCOLAX) suppository 10 mgStart: 10-02-2022 End: 52-73-5501gcdxabjmT (DULCOLAX) suppository 10 mgbumetanide 1 mg oral tablet (20 sources)Loop DiureticStart: 61-82-4546kkaf 1 tablet by mouth twice daily Bumetanide 1 mg tablet Active 1 MG PO Twice daily July 12, 2025 12:00am Complies with drug therapyStart: 26-42-7169Ehqjl: 09-30-2022 End: 68-88-8435mxgo 1 mg by mouth twice daily1 mg, oral, 2 times daily, First dose on Thu03/20/23 at 0900 Regarding Diuretics - Hold if SBP < 110 ; Plan to start POD#1 Start: 63-37-1706gjng 2 tablets by mouth every twelve hours Bumetanide 0.5 MG 2 tablet Orally TWICE A DAY for 90 days noon Mar, ActiveStart: 05-06-2019 End: 27-56-0644kwpx 1 tablet by mouth twice dailyBumetanide 0.5 mg Tablet Discontinued 0.5 MG PO Twice daily May 06, 2019 12:00am December 29, 2023 10:15amcholecalciferol 0.025 mg oral capsule (20 sources)Vitamin DStart: 12-29-2023 End: 32-19-0163whdn 1 capsule by mouth once dailycholecalciferol (Vitamin D-3) 25 MCG (1000 UT) capsule Take 25 mcg by mouth Daily 12/29/2023 ActiveStart: 05-06-2019 End: 53-35-0007uzro 1 capsule by mouth once dailyCholecalciferol (Vitamin D3) (Vitamin D3) 2,000 unit Capsule Discontinued 2000 UNIT PO Daily May 06, 2019 12:00am April 16, 2022 1:50pmtake 1 capsule by mouth every weekCholecalciferol 1.25 MG (16540 UT) TABS Take 1 capsule by mouth once a week Mondays Suspended Vitamin D 1000 UNIT CAPS TAKE 1 CAPSULE Daily Quantity: 0 Refills: 0 Ordered: 18-Dec-2021 DO Activeciprofloxacin 500 mg oral tablet (11 sources)Quinolone Antimicrobial End: 39-50-1997jwqc 1 tablet by mouth in the morningciprofloxacin (Cipro) 500 MG tablet Take 500 mg by mouth in the morning and 500 mg before bedtime. Active clindamycin 300 mg oral capsule (1 source)Lincosamide AntibacterialStart: 10-04-2022 End: 94-27-3243zgkw 1 capsule by mouth three times dailyclindamycin (CLEOCIN) 300 mg capsule Take 1 capsule (300 mg total) by mouth 3 (three) times a day for 10 days. 30 each 0 10/04/2022 10/14/2022 Activedocusate sodium 100 mg oral capsule (15 sources)Start: 29-73-3171Tksgl: 03-19-2023 End: 33-86-4187uvkansrf sodium (COLACE) capsule 100 mgdoxycycline hyclate 100 mg oral capsule (15 sources)Tetracycline-class DrugStart: 09-14-0964uzufgvqcbpc (Vibramycin) 100 MG capsule 03/16/2025 ActiveStart: 14-49-5525mrot 1 capsule by mouth every twelve hoursDoxycycline Hyclate 100 MG 1 capsule Orally Twice a day for 10 day(s) February, ActiveStart: 02-26-2022 End: 56-43-5849hjko 1 tablet by mouth twice dailyDoxycycline Hyclate 100 mg tablet Discontinued 100 MG PO Twice daily 07 08February 26, 2022 12:00am April 16, 2022 1:50pmergocalciferol 1.25 mg oral capsule (1 source)Provitamin D2 CompoundStart: 08-36-4629Xnkjhwdsjoerup (Vitamin D2) 1,250 mcg (50,000 unit) capsule Active 82430 UNIT PO every week July 12, 2025 12:00am Complies with drug therapyerythromycin ethylsuccinate 400 mg oral tablet (12 sources)Macrolide, Macrolide Antimicrobial End: 34-56-1148xuxa 1 tablet by mouth in the morningerythromycin ethylsuccinate (E.E.S.) 400 MG tablet Take 400 mg by mouth in the morning and 400 mg before bedtime. ActiveFiber (20 sources)take 1 tablet by mouth twice daily as neededFiber - 1 tablet Orally two times a day prn Activetake 1 tablet by mouth twice dailyFiber - 1 tablet Orally two times a day Activefluticasone propionate 0.05 mg/actuat metered dose nasal spray (20 sources)CorticosteroidStart: spray, Each Nostril, 2 times daily, First dose on Pina 01/05/25 at 1430, Until Discontinued, Pharmacists should automatically interchange the frequency from daily or QHS to Daily PRN when Flonase is ordered from a patient's home medication list. If it is not ordered from the home medication list, then do not change the ordered frequency. Start: 12-29-2023 End: 90-09-8491pxzl 50 ug nasal route once daily as neededFluticasone Propionate (Flonase Allergy Relief) 50 mcg/actuation spray,suspension Active 2 SPRAY INT RANASAL Once as needed July 12, 2025 1:57pm FreeTextSi-2 spray in each nostril Nasally Once a day; Note: Source Status: Taking; Refills: 11; Provider: Agueda Holley Complies with drug therapytake 50 ug nasal route once dailyFlonase Allergy Relief 50 MCG/ACT 1-2 spray in each nostril Nasally Once a day for 30 day(s) Activetake 50 ug nasal route once dailyFlonase Allergy Relief 50 MCG/ACT 1-2 spray in each nostril Nasally Once a day for 30 day(s) Activetake 1-2 spray(s) nasal route once daily for rhinitisfluticasone propionate (FLONASE) 50 mcg/actuation nasal spray Administer 1-2 sprays into each nostril 1 (one) time each day if needed for rhinitis or allergies. Shake gently. Before first use, prime pump. After use, clean tip and replace cap. 0 Activetake 1 spray(s) nasal route once dailyFlonase Allergy Relief 50 MCG/ACT 1 spray in each nostril Nasally Once a day ActivehydrOXYzine hydrochloride 10 mg oral tablet (20 sources)AntihistamineStart: 05-06-2019 End: 94-11-8939zhtn 1-2 tablets by mouth three times daily as neededHydroxyzine Hcl 10 mg tablet Active 10 MG PO Three times daily as needed for Itching December 29, 2023 9:18am 1-2 tablets every 8 hours itching Complies with drug therapy take 1-2 tablets by mouth every eight hours as neededhydrOXYzine HCl 10 MG 1-2 tablet as needed Orally EVERY 8 HRS FOR ITCHING ActiveLidocaine & Adhesive Sheet 5 % (Patch) (8 sources)Start: 32-27-2335Okzvupoew & Adhesive Sheet 5 % (Patch) as directed Externally DAILY Jan, Active3 ml liraglutide 6 mg/ml pen injector (2 sources)GLP-1 Receptor AgonistStart: 14-87-0101xrbqkq 0.3 mg by subcutaneous injection every weekSaxenda 18 MG/3ML 0.3 mg and may increase weekly to full dose if no side effects and if necessary. Subcutaneous once daily for 30 day(s) May, Activemagnesium oxide 500 mg oral capsule (7 sources)Start: 42-82-9837lowt 1 capsule by mouth once daily at bedtime Magnesium Oxide 500 mg capsule Active 500 MG PO Daily at bedtime July 12, 2025 12:00am Complies with drug therapyStart: 12-09-0923bspv 400 mg by mouth once hrumg521 mg, Oral, DAILY, First dose on Pina 01/05/25 at 1345, Until DiscontinuedStart: 03-19-2023 End: 56-14-9258egfw 400 mg by mouth once gwfiu938 mg, oral, Nightly, First dose on Pina 03/19/23 at 2100take 500 mg by mouth once dailyMAGNESIUM OXIDE PO Take 500 mg by mouth nightly SuspendedMagnesium Oxide 400 (241.3 Mg) MG TABS Take 1 tablet daily Quantity: 0 Refills: 0 Ordered: 25-Sep-2022 DO Activemeropenem 1000 mg injection (1 source)Penem AntibacterialStart: 03-24-2023 End: 88-58-8927obrnqpnma (MERREM) 1 gram injection Infuse 2 g into a venous catheter every 8 (eight) hours. ECF Nursing Instructions: 1)[facility] 2)Qmon CBC,SR,Creat,CRP, fax to Dr. Angelo [phone] 3)IV ATB for 42 days 4)Call Dr. Angelo for F/C/S, N/V/D, rash, 5)F/U with Dr Angelo in 4-5 weeks 6) Call if released before completing IV therapy. 252 g 0 03/24/2023 05/05/2023 Activemounjaro 7.5 mg/0.5ml solution pen-injector (1 source)Start: 84-18-1282Pwlkacsz 7.5 MG/0.5ML 1 injector Subcutaneous weekly for 28 days Jul, Activeondansetron 4 mg disintegrating oral tablet (20 sources)Serotonin-3 Receptor AntagonistStart: 03-19-2023 End: 82-37-7029axsn 4 mg intravenously every six hours as neededondansetron (PF) (ZOFRAN) injection 4 mgStart: 10-02-2022 End: 86-69-2543ujyz 1 tablet by mouth every eight hours for nauseaondansetron (ZOFRAN) 4 mg tablet Take 1 tablet (4 mg total) by mouth every 8 (eight) hours if needed for nausea or vomiting for up to 7 days. 20 tablet 0 03/19/2023 03/26/2023 ActiveStart: 10-02-2022 End: 37-75-9890hlry 4 mg intravenously every six hours as neededondansetron (PF) (ZOFRAN) injection 4 mgStart: 06-05-2021 End: 14-94-6766wyov 1 tablet by mouth once daily as neededOndansetron 4 mg tablet,disintegrating Active 4 MG PO Daily as needed July 12, 2025 1:58pm Complies with drug therapyStart: 80-43-0150ymrx 1 tablet by mouth three times daily as needed for nausea and vomitingOndansetron HCl - 4 MG Oral Tablet TAKE ONE TABLET BY MOUTH THREE TIMES A DAY NEEDED FOR NAUSEA AND VOMITING Quantity: 30 Refills: 0 Ordered: 07-Mar-2021 DO Start : 07-Mar-2021 Activetake 1 tablet by mouth every twenty-four hoursOndansetron HCl 4 MG 1 tablet Orally Once a day ActiveoxyCODONE hydrochloride 5 mg oral tablet (8 sources)Opioid AgonistStart: 85-07-0106Mfjsk: 03-20-2023 End: 33-20-9396dofEGKCTD (ROXICODONE) immediate release tablet 10 mgStart: 03-19-2023 End: 23-25-8361spuh 5 mg by mouth every four hours as needed for pain5 mg, oral, Every 4 hours PRN, Breakthrough pain, Starting on Pina 03/19/23 at 1506, Recovery [facility] OnUnit May consider scheduled oxyCODONE instead of PRNStart: 03-19-2023 End: 62-23-5895mzbKROJYM (ROXICODONE) 5 mg immediate release tablet Take 1-2 tablets (5-10 mg total) by mouth every 4 (four) hours if needed for moderate pain or severe pain for up to 7 days. Dx: Z96.6 Max Daily Amount: 60 mg 40 tablet 0 03/19/2023 03/26/2023 ActiveStart: 10-02-2022 End: 87-39-5576bieJPNRXE (ROXICODONE) immediate release tablet 5 mgStart: 10-02-2022 End: 95-09-5735txcCLABSQ (ROXICODONE) 5 mg immediate release tablet Take 1-2 tablets (5-10 mg total) by mouth every 4 (four) hours if needed for moderate pain or severe pain for up to 7 days. Dx: Z96.6 Max Daily Amount: 60 mg 40 tablet 0 10/02/2022 10/09/2022 Activetake 1 capsule by mouth every four hours as needed for painoxyCODONE 5 MG capsule Take 1 capsule by mouth every 4 hours as needed for Pain. Suspended End: 77-09-6349lrei 1 capsule by mouth once dailyoxyCODONE (OXY-IR) 5 mg immediate release capsule Take 1-2 capsules (5-10 mg total) by mouth 1 (one) time each day if needed (pain). 0 03/25/2023 Discontinued (Stop Taking at Discharge)Oxygen (1 source)Start: 90-49-3077Wkomse Active 0 .ROUTE December 29, 2023 12:00am 2 liters DME [facility]Oxygen 2 liters (20 sources)Oxygen 2 liters continuous prn ActiveOxygen 2 liters continuous ActiveOxygen unit (3 sources)Start: 15-08-2976Mtzcvu unit Active 0 .Route December 29, 2023 12:00am 2 liters DME LincareStart: 78-78-4184Hliikb unit Active 0 .Route December 28, 2023 11:00pm 2 liters DME Lincarepantoprazole 40 mg delayed release oral tablet (20 sources)Proton Pump InhibitorStart: 05-06-2019 End: 26-12-7005nvpx 1 tablet by mouth twice dailyPantoprazole 40 mg Tablet,Delayed Release (Dr/Ec) Active 40 MG PO Twice daily May 06, 2019 12:00am Complies with drug therapytake 1 tablet by mouth before mealtime pantoprazole (ProtoNix) 20 MG EC tablet Take 20 mg by mouth in the morning. Take before meals. Activephenazopyridine hydrochloride 95 mg oral tablet (13 sources)Start: 1955qmgq 2 tablets by mouth every eight hours Phenazopyridine HCl 95 MG 2 tablets after meals Orally Three times a day May, ActiveStart: 05-27-2022 End: 04-17-9000noub 1 tablet by mouth three times daily as needed for pain Phenazopyridine (Azo Urinary Pain Relief) 95 mg tablet Discontinued 95 MG PO Three times daily as needed for pain May 27, 2022 12:00am October 27, 2024 1:19pmStart: 22-31-8752zftf 1 tablet by mouth three times daily Phenazopyridine (Azo Urinary Pain Relief) 95 mg tablet Active 95 MG PO Three times daily May 27, 2022 12:00amphentermine hydrochloride 37.5 mg oral tablet (5 sources)Sympathomimetic Amine AnorecticStart: 84-61-5250enhi 1 tablet by mouth once daily in the morningPhentermine 37.5 mg tablet Active 37.5 MG PO Every morning July 12, 2025 12:00am Complies with drug therapy End: 80-91-9841kmib 1 capsule by mouth before mealtimephentermine 37.5 MG capsule Take 37.5 mg by mouth in the morning. Take before meals. 01/18/2025 Disc ontinued (Therapy completed)polyethylene glycol 3350 28718 mg powder for oral solution (2 sources)Osmotic LaxativeStart: 81-99-5127xkhj 8.5 g by mouth oncePolyethylene Glycol 3350 17 gram/dose powder Active 8.5 GM PO Once July 12, 2025 12:00am Complies with drug therapyStart: 03-19-2023 End: 28-71-4538bcauyawpwgqm glycol (MIRALAX) packet 17 gpotassium chloride 10 meq extended release oral tablet (5 sources)Start: 96-99-3726zdpm 1 tablet by mouth every twenty-four hours Potassium Chloride ER 10 MEQ 1 tablet with food Orally Once a day for 30 day(s) Jul, ActivepredniSONE 10 mg oral tablet (14 sources)Start: 04-66-7884vphttiEIRX 10 MG 4 daily for 4 days, 2 daily for 4 days, then 1 daily for 4 days Orally Once a day for 12 day(s) Jan, ActiveStart: 57-36-0946Bhygz: 04-92-2809lhzzvtae no122/iron/folic acid ( MULTI ORAL) (2 sources)take 1 tablet by mouth every weekprenatal no122/iron/folic acid ( MULTI ORAL) Take 1 tablet by mouth 1 (one) time per week. 0 Activetake 1 tablet by mouth once dailyprenatal no122/iron/folic acid ( MULTI ORAL) Take 1 tablet by mouth 1 (one) time each day. 0 ActivePrenatal Vitamin (7 sources) Vitamin ActivePrenatal Vitamin 27-0.8 MG (19 sources)take 1 tablet by mouth once dailyPrenatal Vitamin 27-0.8 MG 1 tablet Orally Once a day Activetirzepatide (Mounjaro) 7.5 mg/0.5 mL pen injector (1 source)inject 0.5 mL by subcutaneous injection every weektirzepatide (Mounjaro) 7.5 mg/0.5 mL pen injector Inject 0.5 mL (7.5 mg total) under the skin 1 (one) time per week. Mondays 0 Activetopiramate 200 mg oral tablet (20 sources)Start: 62-38-5898ycaa 1 tablet by mouth twice dailyTopiramate 200 mg tablet Active 200 MG PO Twice daily July 12, 2025 12:00am Complies with drug therapyStart: 66-48-7620lqlg 1 tablet by mouth twice nmlez804 mg, Oral, 2 TIMES DAILY, First dose on Pina 01/05/25 at 1400, Until Discontinued, It is not recommended to crush, break, or chew immediate release tablets due to bitter taste.Start: 03-19-2023 End: 30-87-8800jqsm 50 mg by mouth once daily for yudwdbfg03 mg, oral, Nightly, First dose on Pina 03/19/23 at 2100 HAZARDOUS Drug Precautions - Low Risk (Category A/NIOSH Group 3) Reproductive Risk Only: - Do NOT split, crush, or open dosage units - Single pair of ASTM standard D6978 certified chemotherapy gloves - Eye protection(goggles or face shield) required only with a potential for facial contact (i.e. concern for spitting or vomiting of the dose during or after administration)Start: 10-03-2022 End: 55-47-4446trie 50 mg by mouth once daily for aydygczs86 mg, oral, Daily, First dose on Thu10/03/22 at 0900 HAZARDOUS Drug Precautions - Low Risk (Catego ry A/NIOSH Group 3) Reproductive Risk Only: - Do NOT split, crush, or open dosage units - Single pair of ASTM standard D6978 certified chemotherapy gloves - Eye protection(goggles or face shield) required only with a potential for facial contact (i.e. concern for spitting or vomiting of the dose during or after administration)Start: 03-21-2022 End: 71-53-2608hvrg 2 tablets by mouth once dailyTopiramate 25 mg tablet Discontinued 25 MG PO Daily December 29, 2023 12:00am July 12, 2025 2:05pm FreeTextSig: TAKE TWO TABLETS BY MOUTH DAILY IN LATE AFTERNOON FOR 30 DAYS; Note: Source Status: Takingon hold; Refills: 1; Qty: 60 Each; Provider: Maya Jacobs LStart: 17-86-8880Hapvlkx 25 MG 1 tablet in the evening, if no issues or side effects increase to 2 tablets after 1 week. Orally Once a day for 30 day(s) Mar, Activetake 1 tablet by mouth twice dailytopiramate (TOPAMAX) 200 MG tablet Take 1 tablet by mouth 2 times daily SuspendedvalACYclovir 1000 mg oral tablet (20 sources)Herpesvirus Nucleoside Analog DNA Polymerase Inhibitor, Herpes Simplex Virus Nucleoside Analog DNA Polymerase Inhibitor, Herpes Zoster Virus Nucleoside Analog DNA Polymerase InhibitorStart: 85-58-3829razYSYmaskql (Valtrex) 1 g tablet Take 500 mg by mouth Daily 12/29/2023 ActiveStart: 12-29-2023 End: 54-87-7079fell 1 tablet by mouth once dailyValacyclovir (Valtrex) 1 gram tablet Discontinued 1000 MG PO Daily December 29, 2023 12:00am July 12, 2025 2:03pm FreeTextSi tablet Orally Once a day; Note: Source Status: Taking; Provider:Agueda Valera ( ) End: 55-79-0510xlqo 1 tablet by mouth once dailyvalACYclovir (VALTREX) 500 MG tablet Take 1 tablet by mouth daily 01/05/2025 Discontinuedtake 1 tablet by mouth every twenty-four hoursValtrex 1 GM 1 tablet Orally Once a day Activetake 1 tablet by mouth every twenty-four hoursValtrex 1 GM 1 tablet Orally Once a day ActiveVitamin B 12 500 MCG (4 sources)take 1 tablet by mouth once dailyVitamin B 12 500 MCG 1 tablet Orally Once a day Activevitamin b12 1 mg/ml injectable solution (17 sources)Vitamin Q89Jfyjz: 66-36-5114tzsxds 1000 ug by subcutaneous injection every 30 dayscyanocobalamin (Vitamin B-12) 1000 MCG/ML injection Inject 1,000 mcg under the skin every 30 (thirty) days 01/20/2024 ActiveStart: 31-13-3298fziy 1 tablet by mouth once dailyCyanocobalamin (Vitamin B-12) 500 mcg tablet Active 1 TAB PO Daily December 29, 2023 12:00am FreeTextSi tablet Orally Once a day; Note: Source Status: Taking; Provider: Agueda Valera ( ) Complies with drug therapyStart: 47-90-7551qhhr 1 tablet by mouth once dailyCyanocobalamin (Vitamin B-12) 500 mcg tablet Active 1 TAB PO Daily December 28, 2023 11:00pm FreeTextSi tablet Orally Once a day; Note: Source Status: Taking; Provider: Agueda Valera ( )Start: 08-67-5605vsvf 1 tablet by mouth once dailyCyanocobalamin (Vitamin B-12) Active 1 TAB PO Daily December 29, 2023 12:00am FreeTextSi tablet Orally Once a day; Note: Source Status: Taking; Provider: Agueda Valera ( ) cyanocobalamin 1000 MCG/ML injection Inject 1 mL into the muscle every 30 days Suspendedtake 1 tablet by mouth every twenty-four hoursVitamin B 12 500 MCG 1 tablet Orally Once a day ActiveVitamin D3 1000 UNIT (20 sources)take 1 tablet by mouth once dailyVitamin D3 1000 UNIT 1 tablet Orally Once a day Active Completed/Discontinued Medications MedicationDrug Class(es)DatesSig (Normalized)Sig (Original)acetaminophen 325 mg oral tablet (20 sources)Start: 01-05-2025 End: 75-33-9269xddo 4000 mg by mouth every twenty-four mg, Oral, ONCE, 1 dose, On Pina 01/05/25 at 0645, Maximum dose of acetaminophen is 4000 mg from al l sources in 24 hours., Pre-op (day of surgery)Start: 03-19-2023 End: 96-34-3504kqexzazmcoild (TYLENOL) tablet 975 mgStart: 03-19-2023 End: 23-86-2329tddq 1 tablet by mouth every six hours as neededacetaminophen (TYLENOL) tablet 650 mgStart: 03-19-2023 End: 48-73-4996jyln 2 tablets by mouth three times daily as neededacetaminophen (TYLENOL) 500 mg tablet Take 2 tablets (1,000 mg total) by mouth 3 (three) times a day for 7 days. Take every 8 hours for one week, then as needed. Do not exceed 3,000 mg daily limit. 50 tablet 0 03/19/2023 03/26/2023 ActiveStart: 10-02-2022 End: 97-41-3087rpdj 1000 mg by mouth every six hours1,000 mg, oral, Every 6 hours scheduled, First dose on Pina 10/02/22 at 2100, Recovery & On UnitStart: 10-02-2022 End: 38-99-0713twgc 2 tablets by mouth three times daily as neededacetaminophen (TYLENOL) 500 mg tablet Take 2 tablets (1,000 mg total) by mouth 3 (three) times a day for 7 days. Take every 8 hours for one week, then as needed. Do not exceed 3,000 mg daily limit. 50 tablet 0 10/02/2022 10/09/2022 ActiveStart: 10-02-2022 End: 45-90-8450zyda 1 tablet by mouth every six hours as neededacetaminophen (TYLENOL) tablet 325 mgtake 2 capsules by mouth every six hoursaluminum hydroxide 40 mg/ml / magnesium hydroxide 40 mg/ml / simethicone 4 mg/ml oral suspension (2 sources)Start: 03-19-2023 End: 93-21-0845ynddigvx-magnesium hydroxide-simethicone (MAALOX) 200-200-20 mg/5 mL suspension 30 mLStart: 10-02-2022 End: 94-78-2445bxadasyu-magnesium hydroxide-simethicone (MAALOX) 200-200-20 mg/5 mL suspension 30 mLapixaban 5 mg oral tablet (20 sources)Factor Xa InhibitorStart: 06-05-2021 End: 92-45-0512umpj 1 tablet by mouth twice dailyApixaban (Eliquis) 5 mg tablet Discontinued 5 MG PO Twice daily 60 June 23, 2021 2:30am September 04, 2021 3:21pmStart: 04-30-2021 End: 86-42-8376gcsi 2 tablets by mouth twice daily, then take 1 tablet by mouth twice dailyApixaban (Eliquis) 5 mg tablet Discontinued 0 .ROUTE .COMPLEX 74 April 30, 2021 12:00am June 05, 2021 10:13am 10 mg po BID x 1 week, then 5 mg po BIDtake 1 tablet by mouth twice dailyEliquis 2.5 MG 1 tab Orally BID Active aspirin 81 mg delayed release oral tablet (2 sources)Platelet Aggregation Inhibitor, Nonsteroidal Anti-inflammatory Drug Start: 03-19-2023 End: 69-15-4074futx 1 tablet by mouth twice dailyaspirin 81 mg EC tablet Take 1 tablet (81 mg total) by mouth 2 (two) times a day for 28 days. 56 each 0 03/19/2023 03/20/2023 Discontinued (Stop Taking at Discharge)Start: 10-17-2022 End: 85-06-2996obos 1 tablet by mouth twice daily, then take 1 tablet by mouth twice dailyaspirin 81 mg chewable tablet Chew 1 tablet [...] 0 10/17/2022 10/03/2022 Discontinued (Stop Taking at Discharge)bethanechol chloride 25 mg oral tablet (2 sources)Cholinergic Muscarinic AgonistStart: 03-19-2023 End: 55-07-0881bcqplpsulfn (URECHOLINE) tablet 25 mgStart: 10-02-2022 End: 36-41-8952nnlwyugvqgf (URECHOLINE) tablet 25 mgBudesonide / formoterol (20 sources)Corticosteroid, beta2-Adrenergic AgonistStart: 03-19-2023 End: puff, inhalation, 2 times daily, First dose on Pina 03/19/23 at 2100 Patient may use own - Rinse mouth with water after use to reduce aftertaste and incidence of candidiasis. Do not swallow. Is patient COVID 19 positive or under investigation for COVID 19 (PUI) or in a dual occupancy room? NoStart: 10-03-2022 End: 16-28-3119qgsftgiqaa-formoteroL (SYMBICORT) 160-4.5 mcg/actuation inhaler 2 puffStart: 03-82-0080jjop 2 puff(s) by inhalation twice dailySymbicort 160-4.5 MCG/ACT 2 puffs Inhalation Twice a day for 30 days Jun, ActiveStart: 42-08-3501Btrsb: 05-09-2019 End: 37-81-9851zrxp 1 puff(s) by inhalation twice dailyBudesonide-Formoterol (Symbicort) 160-4.5 mcg/actuation Hfa Aerosol Inhaler Discontinued 2 PUFF INHA LATION Twice daily May 08, 2019 11:00pm January 05, 2024 1:29pmStart: 05-09-2019 End: 74-87-4113nmsp 1 puff(s) by inhalation twice dailyBudesonide-Formoterol (Symbicort) 160-4.5 mcg/actuation Hfa Aerosol Inhaler Discontinued 2 PUFF INHA LATION Twice daily May 09, 2019 12:00am January 05, 2024 2:29pmStart: 64-05-3403imxi 1 puff(s) by inhalation twice dailyBudesonide-Formoterol (Symbicort) 160-4.5 mcg/actuation Hfa Aerosol Inhaler Active 2 PUFF INHALATION Twice daily May 09, 2019 12:00am End: 39-82-7104hzaz 2 puff(s) by inhalation twice dailybudesonide-formoterol (SYMBICORT) 160-4.5 MCG/ACT AERO Inhale 2 puffs into the lungs 2 times daily 0 01/05/2025 Discontinued (LIST CLEANUP)take 2 puff(s) by mouth twice daily budesonide-formoteroL (SYMBICORT) 160-4.5 mcg/actuation inhaler Inhale 2 puffs 2 (two) times a day.Rinse mouth with water after use to reduce aftertaste and incidence of candidiasis. Do not swallow.0 ActiveSymbicort 160-4.5 MCG/ACT Inhalation Aerosol USE DIRECTED. Quantity: 0 Refills: 0 Ordered: 01-Oct-2021 DO Activecalcium chloride 0.0014 meq/ml / potassium chloride 0.004 meq/ml / sodium chloride 0.103 meq/ml / sodium lactate 0.028 meq/ml injectable solution (2 sources)Start: 03-19-2023 End: 43-25-1582vdkovcev Ringer's infusionStart: 10-02-2022 End: 85-49-8909rhxl 100 mL intravenously every azcv680 mL/hr, intravenous, Continuous, Starting on Pina 10/02/22 at 1445calcium polycarbophil 625 mg oral tablet (13 sources)Start: 83-50-7905whcr 625 mg by mouth twice ukrvc698 mg, Oral, 2 TIMES DAILY, First dose on Pina 01/05/25 at 1400, Until Discontinuedtake 1 tablet by mouth every eight hourspolycarbophil (FiberCon) 625 MG tablet Take 625 mg by mouth every 8 (eight) hours ActiveceFAZolin (ANCEF) 2 gram/20 mL IV syringe 2 g (2 sources)Start: 03-19-2023 End: g, intravenous, Administer over 3 Minutes, Every 8 hours, First dose on Pina 03/19/23 at 2200, For 2days, Recovery & On Unit Indication: Prophylaxis-SurgicalStart: 10-02-2022 End: g, intravenous, Administer over 3 Minutes, Every 8 hours, First dose on Pina 10/02/22 at 1700, For2 doses, Recovery & On Unit Indication: Prophylaxis-Surgicalcefdinir 300 mg oral capsule (11 sources)Cephalosporin AntibacterialStart: 01-05-2024 End: 40-64-0102ajrf 1 mg by mouth once dailyCefdinir 300 mg capsule Discontinued MG PO Daily January 05, 2024 12:00am October 27, 2024 1:33pm FreeTextSig: as directed Orally daily; Note: Source Status: Takingon for 6 months; Provider: Agueda Valera ( )Start: 02-92-1643cfuv 1 mg by mouth once dailyCefdinir Active MG PO Daily January 05, 2024 12:00am FreeTextSig: as directed Orally daily; Note: Source Status: Takingon for 6 months; Provider: Agueda Valera ( )cephalexin 500 mg oral capsule (17 sources)Cephalosporin AntibacterialStart: 10-02-2022 End: 68-07-0455orjl 1 capsule by mouth three times dailycephalexin (KEFLEX) 500 mg capsule Take 1 capsule (500 mg total) by mouth 3 (three) times a day for3 doses. 3 capsule 0 10/02/2022 10/03/2022 ExpiredStart: 12-22-2020 End: 43-14-4244jkan 1 capsule by mouth every six hoursCephalexin 500 mg capsule Discontinued 500 MG PO Q6H 28 December 22, 2020 1:00am April 29, 2021 10:35pm Start: 12-22-2020 End: 00-57-2027skys 1 capsule by mouth four times dailyCephalexin 500 mg capsule Discontinued 500 MG PO Four times daily 40 December 22, 2020 1:00am 2020 10:35pmcetirizine hydrochloride 10 mg oral tablet (13 sources)Histamine-1 Receptor AntagonistStart: 01-05-2025 End: 87-10-5076gajs 10 mg by mouth once daily10 mg, Oral, DAILY, First dose on Pina 01/05/25 at 1430, Until Discontinuedtake 1 tablet by mouth in the morning cetirizine (ZyrTEC) 10 MG tablet Take 10 mg by mouth in the morning. Active cloNIDine hydrochloride 0.1 mg oral tablet (3 sources)Central alpha-2 Adrenergic AgonistStart: 03-19-2023 End: 46-97-9097bchc 1 tablet by mouth every six hours as neededcloNIDine (CATAPRES) tablet 0.1 mgStart: 10-02-2022 End: 35-22-7898sxjw 1 tablet by mouth every six hours as neededcloNIDine (CATAPRES) tablet 0.1 mgclopidogrel 75 mg oral tablet (20 sources)P2Y12 Platelet InhibitorStart: 09-04-2021 End: 26-80-0745dsat 1 tablet by mouth once dailyClopidogrel 75 mg Tablet Discontinued 75 MG PO Daily 30 February 28, 2022 12:59pm October 27:34pm codeine phosphate 2 mg/ml / guaiFENesin 20 mg/ml oral solution (1 source)Opioid AgonistStart: 07-57-4133ihwo 5 mL by mouth every six hours as needed5 mL, Oral, EVERY 6 HOURS PRN, Starting on Thu01/06/25 at 0650, Until Discontinued, Cough, Congestioncyclobenzaprine hydrochloride 10 mg oral tablet (13 sources)Muscle RelaxantStart: 10-02-2022 End: 62-43-3698lamlvyqwcfphopl (FLEXERIL) tablet 10 mg12 hr dextromethorphan hydrobromide 30 mg / guaiFENesin 600 mg extended release oral tablet (1 source)Uncompetitive B-dsvbhy-F-aspartate Receptor Antagonist, Sigma-1 AgonistStart: 58-70-2025thev 1 tablet by mouth twice daily1 tablet, Oral, 2 TIMES DAILY, First dose on Thu01/06/25 at 0900, Until Discontinued, Do not crush or break.diazePAM 5 mg oral tablet (13 sources)BenzodiazepineStart: 12-29-2023 End: 52-74-1722dexz 1 tablet by mouth once daily as neededDiazepam 5 mg tablet Discontinued 5 MG PO Daily December 29, 2023 12:00am October 27, 2024 1:35pm Fr eeTextSi tablet as needed Orally Once a day; Note: Source Status: Taking; Provider: Agueda Valera ( )dimenhyDRINATE 50 mg oral tablet (1 source)Start: 01-05-2025 End: 51-96-6551ymgu 1 dose by mouth once daily50 mg, Oral, ONCE, 1 dose, On Thu01/05/25 at 0645, Pre-op (day of surgery)diphenhydrAMINE (3 sources)Histamine-1 Receptor AntagonistStart: 03-19-2023 End: 14-22-0312rccm 25 mg intravenously every six hours as mulksp31 mg, intravenous, Every 6 hours PRN, itching, Starting on Thu03/19/23 at 1631Start: 03-19-2023 End: 92-10-7402cajhuxbzhiBIHNW (BENADRYL) capsule 25 mgStart: 10-05-2022 End: 70-42-9095kddn 1 capsule by mouth every six hours as neededdiphenhydrAMINE (BENADRYL) capsule 25 mgDULoxetine 30 mg delayed release oral capsule (9 sources)Serotonin and Norepinephrine Reuptake InhibitorStart: 12-29-2023 End: 51-73-9268nbaz 1 capsule by mouth once dailyDuloxetine 30 mg capsule,delayed release(DR/EC) Discontinued 30 MG PO Daily December 29, 2023 12:00am January 05, 2024 2:27pm FreeTextSi capsule Orally Once a day; Note: Source Status: Taking; Provider: Agueda Valera ( )take 1 capsule by mouth every twenty-four hoursDULoxetine HCl 30 MG 1 capsule Orally Once a day Active1 ml fentaNYL 0.05 mg/ml injection (3 sources)Opioid AgonistStart: 03-19-2023 End: 75-74-3169jxhnaQVH (SUBLIMAZE) injection 50 mcgStart: 10-02-2022 End: 67-04-4667lrckiDEW (SUBLIMAZE) injection 25 mcgStart: 10-02-2022 End: 36-27-1871hvbxrBTY (SUBLIMAZE) injection 50 mcgferrous sulfate 325 mg oral tablet (20 sources)Start: 05-09-2019 End: 49-35-1291kkhx 1 tablet by mouth once daily as neededFerrous Sulfate (Iron) 325 mg (65 mg iron) Tablet Discontinued 325 MG PO Daily May 09, 2019 12:00am July 12, 2025 1:57pm she states as neededtake 1 tablet by mouth once dailyFerrous Sulfate 324 (65 Fe) MG Oral Tablet Delayed Release Take 1 tablet daily Quantity: 0 Refills:0 Ordered: 18-Dec-2021 DO Activetake 1 tablet by mouth once daily as neededFerrous Sulfate 325 (65 Fe) MG 1 tablet Orally Once a day prn Activefluconazole 100 mg oral tablet (20 sources)Azole AntifungalStart: 06-05-2021 End: 31-12-1285rvdy 1 tablet by mouth once daily as neededFluconazole 100 mg Tablet Discontinued 100 MG PO Daily June 05, 2021 12:00am April 16, 2022 1:52pm as bplixd56 actuat fluticasone propionate 0.25 mg/actuat / salmeterol 0.05 mg/actuat dry powder inhaler (14 sources)Corticosteroid, beta2-Adrenergic AgonistStart: 01-05-2024 End: 38-68-6315Cqllfmhfhtm Propion-Salmeterol (Advair Diskus) 250-50 mcg/dose blister with device Discontinued 1 INH INHALATION Twice daily 60 30 January 05, 2024 12:00am October 27, 2024 1:35pmStart: 12-29-2023 End: 50-46-6829vbme 1 puff(s) by inhalation three times dailyFluticasone Propion-Salmeterol 232-14 mcg/actuation aerosol powdr breath activated Discontinued 1 PUFF INHALATION Three times daily December 29, 2023 12:00am October 27, 2024 1:35pm FreeTextSi puff Inhalation Twice a day; Note: Source Status: Taking; Provider: Agueda Valera ( )Start: 58-43-2017ujve 2 puff(s) by inhalation twice dailyAdvair HFA 115-21 MCG/ACT 2 puffs Inhalation Twice a day for 30 days Oct, Activetake 1 puff(s) by inhalation twice dailyFluticasone-Salmeterol 232-14 MCG/ACT 1 puff Inhalation Twice a day Activegabapentin 300 mg oral capsule (20 sources)Anti-epileptic AgentStart: 61-00-5056jtvr 300 mg by mouth three times mg, Oral, 3 TIMES DAILY, First dose on Pina 01/05/25 at 1400, Until DiscontinuedStart: 01-14-7177srft 1 dose by mouth once rmaml094 mg, Oral, ONCE, 1 dose, On Pina 01/05/25 at 0645, Pre-op (day of surgery)Start: 03-19-2023 End: 83-03-6343bhok 300 mg by mouth three times xjurn010 mg, oral, 3 times daily, First dose on Pina 03/19/23 at 2100Start: 10-02-2022 End: 07-82-8196irxd 300 mg by mouth three times uzbza536 mg, oral, 3 times daily, First dose on Pina 10/02/22 at 2100Start: 06-11-2021 End: 37-81-3898rjdv 1 tablet by mouth three times dailyGabapentin 300 mg Tablet Discontinued 300 MG PO Three times daily June 11, 2021 12:00am June 11, 2021 2:21pmStart: 64-48-3889ipsz 2 capsules by mouth three times dailyGabapentin 300 mg capsule Active 300 MG PO Three times daily April 29, 2021 12:00am 2 capsules orally tid Complies with drug therapyglucagon (rdna) 1 mg injection (1 source)Antihypoglycemic AgentStart: 10-02-2022 End: 51-84-5680dkitdegc injection 1 mg500 ml glucose 500 mg/ml injection (4 sources)Start: 10-02-2022 End: 75-70-2568nsjnzenc 15 gram/59 mL oral solution 30 gStart: 10-02-2022 End: 42-02-1920zcsimzep 15 gram/59 mL oral solution 15 gStart: 10-02-2022 End: 69-30-6770rrlxrpxn (D50W) 50% injection 25 g0.5 ml HYDROmorphone hydrochloride 1 mg/ml prefilled syringe (2 sources)Opioid AgonistStart: 03-19-2023 End: 37-55-4408UADNLzwrrkcxs (DILAUDID) injection 0.5 mgStart: 10-02-2022 End: 59-62-0837KILGStxajiszr (DILAUDID) injection 0.5 mginsulin lispro 100 unt/ml injectable solution (1 source)Insulin AnalogStart: 10-02-2022 End: 43-99-8599nbiiojy lispro (HumaLOG) injection 1-6 Unitslidocaine 0.05 mg/mg medicated patch (8 sources)Antiarrhythmic, Amide Local AnestheticStart: 01-25-2022 End: 47-00-6852jwaic 1 dose topically once dailyLidocaine 5 % adhesive patch,medicated Discontinued 1 PATCH TOPICAL Daily January 25, 2022 12:00amApril 16, 2022 1:53pm leave on most painful area for up to 12 hrslisinopril 40 mg oral tablet (8 sources)Angiotensin Converting Enzyme InhibitorStart: 05-06-2019 End: 56-47-1277nkpj 1 tablet by mouth once dailyLisinopril 40 mg Tablet Discontinued 40 MG PO Daily May 06, 2019 12:00am April 29, 2021 10:36pm loratadine 10 mg oral tablet (20 sources)take 1 tablet by mouth once dailyloratadine (CLARITIN) 10 MG tablet Take 1 tablet by mouth daily SuspendedMagnesium (20 sources)Start: 04-16-2022 End: 17-08-8689banu 1 tablet by mouth once dailyMagnesium 200 mg Tablet Discontinued 200 MG PO Daily April 16, 2022 12:00am July 12, 2025 2:03pm Start: 50-47-1506mcho 1 tablet by mouth once dailyStart: 82-56-8528enog 1 tablet by mouth once dailyMagnesium 200 mg Tablet Active 200 MG PO Daily April 15, 2022 11:00pmStart: 73-24-9511nrna 200 mg by mouth once dailyMagnesium Active 200 MG PO Daily April 16, 2022 12:00amtake 1 capsule by mouth once dailyMagnesium 200 MG 1 capsule with a meal Orally Once a day ActiveMagnesium Activemagnesium hydroxide 80 mg/ml oral suspension (2 sources)Start: 03-20-2023 End: 93-89-2823iuctgmdwl hydroxide (MILK OF MAGNESIA) 400 mg/5 mL suspension 30 mLStart: 10-02-2022 End: 14-84-3002celrabccy hydroxide (MILK OF MAGNESIA) 400 mg/5 mL suspension 30 mLmeropenem (MERREM) 1 g in sodium chloride 0.9 % 100 mL IVPB - MBP (1 source)Start: 03-20-2023 End: 82-64-8452qkrtjwzjv (MERREM) 1 g in sodium chloride 0.9 % 100 mL IVPB - MBP methylPREDNISolone 4 mg oral tablet (2 sources)CorticosteroidStart: 10-27-2024 End: 72-24-8150oiah 1 tablet by mouth onceMethylprednisolone (Medrol (Gamaliel)) 4 mg tablets,dose pack Discontinued 0 PO per package directions October 27, 2024 1:00am July 12, 2025 1:58pm PO PER PKG DIRmidodrine hydrochloride 5 mg oral tablet (20 sources)alpha-Adrenergic AgonistStart: 10-02-2022 End: 27-72-0954canv 2.5 mg by mouth twice daily2.5 mg, oral, 2 times daily, First dose on Pina 10/02/22 at 2100Start: 04-29-2021 End: 09-07-1873lgiw 1 tablet by mouth twice dailyMidodrine 2.5 mg tablet Discontinued 2.5 MG PO Twice daily April 29, 2021 12:00am July 12, 2025 2:32pmMounjaro 2.5 MG/0.5ML Subcutaneous Solution Pen-injector (1 source)Mounjaro 2.5 MG/0.5ML Subcutaneous Solution Pen-injector as directed Quantity: 0 Refills: 0 Ordered: 25-Sep-2022 DO ActiveNaloxone (2 sources)Opioid AntagonistStart: 03-19-2023 End: 84-14-5686nxrrqnnu (NARCAN) injection 0.4 mgStart: 10-02-2022 End: 01-46-1258jzdtvewi (NARCAN) injection 0.4 mgnitrofurantoin, macrocrystals 25 mg / nitrofurantoin, monohydrate 75 mg oral capsule (13 sources)Nitrofuran AntibacterialStart: 05-27-2022 End: 30-88-5607usjy 1 capsule by mouth twice daily at mealtimeNitrofurantoin Monohyd/M-Cryst (Macrobid) 100 mg capsule Discontinued 100 MG PO Twice daily 01 05May 27, 2022 12:00am October 27, 2024 1:18pm must administer with a meal/foodStart: 89-47-1668edid 1 capsule by mouth twice daily at mealtime Nitrofurantoin Monohyd/M-Cryst (Macrobid) 100 mg capsule Active 100 MG PO Twice daily 14 May 27, 2022 12:00am must administer with a meal/foodOxygen Therapy, Adult (2 sources)Start: 03-19-2023 End: 58-49-2507Fqdfdz Therapy, AdultStart: 10-02-2022 End: 33-94-6529Bgiryh Therapy, Adultpregabalin 100 mg oral capsule (9 sources)Start: 12-29-2023 End: 18-55-1563loqz 1 capsule by mouth once dailyPregabalin 100 mg capsule Discontinued 100 MG PO Daily December 29, 2023 12:00am July 12, 2025 2:00pm FreeTextSi capsule Orally Once a day; Note: Source Status: Taking; Provider: Agueda Valera ( )take 1 capsule by mouth every twenty-four hoursPregabalin 100 MG 1 capsule Orally Once a day ActivePrenatal Vit-Iron Fum-Folic Ac (Prena-Tab) 65 mg iron- 1 mg Tablet (8 sources)Start: 04-16-2022 End: 04-04-0618cnhy 1 tablet by mouth once daily before mealtimePrenatal Vit- Iron Fum-Folic Ac (Prena-Tab) 65 mg iron- 1 mg Tablet Discontinued 1 TAB PO Daily 2021 12:00am July 12, 2025 2:00pmStart: 33-31-3430tjbl 1 tablet by mouth once daily before mealtimeStart: 24-57-8378xsyo 1 tablet by mouth once daily before mealtimePrenatal Vit-Iron Fum-Folic Ac (Prena-Tab) 65 mg iron- 1 mg Tablet Active 1 TAB PO Daily March 11:00pmStart: 04-16-2022 take 1 tablet by mouth once daily before mealtimePrenatal Vit-Iron Fum-Folic Ac (Prena-Tab) 65 mg iron- 1 mg Tablet Active 1 TAB PO Daily March 12:00am promethazine hydrochloride 25 mg rectal suppository (4 sources)PhenothiazineStart: 03-19-2023 End: 73-72-2942rpre 1 tablet by mouth every six hours as neededpromethazine (PHENERGAN) tablet 25 mgStart: 03-19-2023 End: 74-50-2380ysfw 25 mg rectal route every six hours as neededpromethazine (PHENERGAN) suppository 25 mgStart: 10-02-2022 End: 57-54-2262rjsm 1 tablet by mouth every six hours as neededpromethazine (PHENERGAN) tablet 25 mgStart: 10-02-2022 End: 31-00-1809beww 25 mg rectal route every six hours as neededpromethazine (PHENERGAN) suppository 25 mgrivaroxaban 10 mg oral tablet (8 sources)Factor Xa InhibitorStart: 10-02-2022 End: 86-76-4231wndhbvqcxbh (XARELTO) tablet 10 mgsennosides, intermediate 8.6 mg oral tablet (2 sources)Start: 03-19-2023 End: 36-66-0932fnkij (SENOKOT) tablet 8.6 mgStart: 10-02-2022 End: 89-14-3802akpgn (SENOKOT) tablet 8.6 mgsodium chloride 0.111 meq/ml nasal spray (7 sources)Start: 46-22-6716qaiu 1 spray(s) nasal route every four hours as needed1 spray, Each Nostril, EVERY 4 HOURS PRN, Starting on Thu01/06/25 at 0650, Until Discontinued, CongestionStart: 01-05-2025 End: 72-56-3520GxcntHSLnpj, at 100 mL/hr, CONTINUOUS, Starting on Thu01/05/25 at 1345Start: 03-20-2023 End: 26-56-5613okijzp chloride 0.9 % flush 10 mLStart: 03-19-2023 End: 82-73-3461vdetps chloride 0.9 % flush 10 mLStart: 03-19-2023 End: 11-71-0190tyumkw chloride 0.9 % infusionStart: 10-02-2022 End: 88-90-0869pkpmfx chloride 0.9 % flush 10 mLspironolactone 50 mg oral tablet (11 sources)Aldosterone AntagonistStart: 04-29-2021 End: 54-29-6294Cawvofdwyiidlx 50 mg tablet Discontinued 25 MG PO Daily April 29, 2021 12:00am September 04:22pmStart: 04-29-2021 End: 54-01-6688uwcy 25 mg by mouth once dailySpironolactone Discontinued 25 MG PO Daily April 29, 2021 12:00am September 04, 2021 3:22pmSpironolactone 25 MG 1 tablet Orally Activetemazepam 15 mg oral capsule (20 sources)BenzodiazepineStart: 57-30-4301rcaw 15 mg by mouth once daily as mg, Oral, NIGHTLY PRN, Starting on Thu01/05/25 at 2100, Until Discontinued, SleepStart: 01-52-5006gnfu 1 capsule by mouth once daily at bedtime as neededTemazepam 30 mg Capsule Active 30 MG PO Daily at bedtime as needed for Insomnia May 06, 2019 12:00am Complies with drug therapy Tirzepatide (4 sources)Start: 12-29-2023 End: 96-39-5144lqinpg 1 mg by subcutaneous injection every weekTirzepatide 7.5 mg/0.5 mL pen injector Discontinued MG SUBCUT December 29, 2023 12:00am July 12, 2025 2:02pm FreeTextSi injector Subcutaneous weekly; Note: Source Status: Taking; Refills: 1; Qty: 2 Milliliter; Provider: Maya Jacobs LStart: 66-39-7927hvtsed 1 mg by subcutaneous injection every weekStart: 12-29-2023 inject 1 mg by subcutaneous injection every weekTirzepatide 7.5 mg/0.5 mL pen injector Active MG SUBCUT December 28, 2023 11:00pm FreeTextSi injector Subcutaneous weekly; Note: Source Status: Taking; Refills: 1; Qty: 2 Milliliter; Provider: Maya Jacobs LStart: 13-84-1603refwav 1 mg by subcutaneous injection every weekTirzepatide Active MG SUBCUT December 29, 2023 12:00am FreeTextSi injector Subcutaneous weekly; Note: Source Status: Taking; Refills: 1; Qty: 2 Milliliter; Provider: Maya Jacobs Ltirzepatide (Mounjaro) 2.5 mg/0.5 mL pen injector (2 sources) End: 04-43-9574rpkewu 0.5 mL by subcutaneous injection every weektirzepatide (Mounjaro) 2.5 mg/0.5 mL pen injector Inject 0.5 mL (2.5 mg total) under the skin 1 (one) time per week. 0 03/18/2023 Discontinued (Entered in Error)inject 2.5 mg by subcutaneous injection every weektirzepatide (Mounjaro) 2.5 mg/0.5 mL pen injector Inject 2.5 mg under the skin 1 (one) time per week. 0 ActiveTirzepatide (MOUNJARO) 2.5 MG/0.5ML SOAJ (1 source) End: 56-18-7401Yhezupjzvnj (MOUNJARO) 2.5 MG/0.5ML SOAJ Inject into the skin once a week 01/05/2025 Discontinued (LIST CLEANUP)tiZANidine 4 mg oral tablet (20 sources)Central alpha-2 Adrenergic AgonistStart: 38-30-1294rrgw 4 mg by mouth once daily4 mg, Oral, NIGHTLY, First dose on Thu01/05/25 at 2230, Until DiscontinuedStart: 17-53-2204ssqd 2 tablets by mouth twice daily as needed Tizanidine 4 mg tablet Active 4 MG PO Twice daily December 29, 2023 12:00am FreeTextSi tablet asneeded Orally TWICE A DAY NEEDED; Note: Source Status: Taking; Provider: Agueda Valera ( ) Complies with drug therapyStart: 03-19-2023 End: 73-06-9615mvrg 8 mg by mouth once daily as needed for muscle spasms8 mg, oral, Daily PRN, muscle spasms, Starting on Thu03/19/23 at 1631Start: 07-31-2021 End: 48-14-7835royb 1 tablet by mouth in the morning, then take 1 tablet by mouth in the eveningtiZANidine HCl - 4 MG Oral Tablet take one tabelt in the morning and one in the evening Quantity: 0Refills: 0 Ordered: 31-Jul-2021 DO Start : 31-Jul-2021 ActiveStart: 05-06-2019 End: 48-38-2167zxxo 2 tablets by mouth twice daily as neededTizanidine 4 mg Capsule Discontinued 4 MG PO Q12H as needed for Muscle Spasm May 06, 2019 12:00am January 25, 2022 8:56pm 2 tablets as needed orally twice a daytake 2 tablets by mouth once dailytiZANidine (ZANAFLEX) 4 MG tablet Take 2 tablets by mouth nightly Suspended End: 35-42-1399wywf 1 capsule by mouth every twelve hours as neededtiZANidine (ZANAFLEX) 4 MG capsule Take 1 capsule by mouth every 12 hours as needed 01/05/2025 Discontinued (LIST CLEANUP)take 2 tablets by mouth twice daily as neededtiZANidine HCl 4 MG 2 tablet as needed Orally TWICE A DAY NEEDED Active traMADol hydrochloride 50 mg oral tablet (9 sources)Opioid AgonistStart: 03-19-2023 End: 55-40-8681zwvy 50-100 mg by mouth every six hours as neededtraMADoL (ULTRAM) 50 mg tablet Take 1-2 tablets (50-100 mg total) by mouth every 6 (six) hours if needed for moderate pain for up to 7 days. Dx: Z96.6 Max Daily Amount: 400 mg 40 tablet 0 03/19/2023 03/20/2023 Discontinued (Stop Taking at Discharge) Start: 10-02-2022 End: 11-20-1237pafg 50-100 mg by mouth every six hours as neededtraMADoL (ULTRAM) 50 mg tablet Take 1-2 tablets (50-100 mg total) by mouth every 6 (six) hours if needed for moderate pain for up to 7 days. Dx: Z96.6 Max Daily Amount: 400 mg 40 tablet 0 10/02/2022 10/03/2022 Discontinued (Stop Taking at Discharge) take 1 tablet by mouth every twenty-four hourstraMADol HCl 50 MG 1 tablet as needed Orally Once a day ActivetraZODone hydrochloride 50 mg oral tablet (2 sources)Serotonin Reuptake InhibitorStart: 03-19-2023 End: 40-69-2086yjwDWCezi (DESYREL) tablet 25 mgStart: 10-02-2022 End: 28-99-6993zkxMGEcfn (DESYREL) tablet 50 mg Problems Active Problems Problem ClassificationProblemDateDocumented DateEpisodic/ChronicAcute and chronic tonsillitis (12 sources)Hypertrophy of lingual tonsil; Translations: [Hypertrophy of tonsils]Onset: 625950-10-8339MtiwemqItyesn (20 sources)Moderate persistent asthma; Translations: [Moderate persistent asthma, uncomplicated]Onset: 07-10-2021 Resolved: 39-70-6558SxkejbrJocrysy and circulatory congenital anomalies (12 sources)Ostium secundum type atrial septal defect; Translations: [Atrial septal defect within oval fossa]Onset: 398687-45-1641LhyoorsVgrdcir kidney disease (20 sources)Chronic kidney disease stage 3; Translations: [Chronic kidney disease, Stage III (moderate)]Onset: 07-11-2021 Resolved: 61-25-3619DqhukhrClboody kidney disease (20 sources)Chronic kidney disease; Translations: [Chronic kidney disease, stage 3a]Onset: 09-25-2021 Resolved: 23-79-2306Ledykwe obstructive pulmonary disease and bronchiectasis (17 sources)Chronic obstructive lung disease; Translations: [Chronic airway obstruction, not elsewhere classified]Onset: 328480-30-2978TdswbjnSolifzc obstructive pulmonary disease and bronchiectasis (2 sources)Bronchitis; Translations: [Bronchitis, not specified as acute or chronic]36-16-0493JzwnrijsKnpbuydxdpdcj of surgical procedures or medical care (4 sources)Hypotension following procedure; Translations: [Postprocedural hypotension]Onset: 193364-86-2834PlfovqmwRseeedfsoz heart failure; nonhypertensive (20 sources)Chronic right-sided congestive heart failure; Translations: [Congestive heart failure, unspecified]Onset: 07-06-2017 Resolved: 68-97-6599ExqpurcNwvxetnn atherosclerosis and other heart disease (13 sources)Atherosclerotic heart disease of [place] coronary artery without angina pectoris; Translations: [Coronary atherosclerosis]Onset: 03-03-2013 28-94-6424DtwtbyvDubgmlaulg and other anemia (20 sources)Anemia in chronic kidney disease; Translations: [Anemia in chronic kidney disease]ChronicDeficiency and other anemia (1 source)Anemia in chronic kidney diseaseOnset: 09-25-2021 Resolved: 05-92-5016OuiarowHiuaxdbkbm and other anemia (2 sources)Iron deficiency anemia, unspecified; Translations: [Iron deficiency anemia, unspecified]37-24-9893DlnnocwnBuwcqelx mellitus without complication (15 sources)Diabetic on diet only; Translations: [Diabetes mellitus without mention of complication, type II orunspecified type, not stated as uncontrolled] Onset: 393791-62-5392ZwsjmrsKwyoexwu mellitus without complication (10 sources)Other abnormal glucose; Translations: [Impaired fasting glucose] Onset: 07-11-2021 Resolved: 07-98-9082BndkjcnmXvhuvfqauh disorders (20 sources)Gastroesophageal reflux disease; Translations: [Gastro-esophageal reflux disease without esophagitis]Onset: 07-06-2017 Resolved: 97-48-9404JzexxscNmqboqvyt hypertension (20 sources)Hypertensive disorder; Translations: [Essential (primary) hypertension]Onset: 02-18-2012 Resolved: 10-82-8544FqpvnlpFmuo and other crystal arthropathies (20 sources)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; Translations: [Other secondary chronic gout, unspecified site, without tophus (tophi)]Onset: 04-02-2022 Resolved: 85-32-1179EhicbycJhrwoywxesuc with complications and secondary hypertension (20 sources)Chronic kidney disease due to hypertension; Translations: [Hypertensive chronic kidney disease withstage 1 through stage 4 chronic kidney disease, or unspecified chronic kidney disease]Onset: 09-25-2021 Resolved: 09-47-7446OxgcnunEbdvarawhlkrt and screening for infectious disease (2 sources)Patient encounter status; Translations: [Other specified vaccination] 17-11-8915ZtcztbelAwcxurjdgxv deficiencies (3 sources)Vitamin D deficiency, unspecified; Translations: [Vitamin D deficiency]Onset: 873092-17-1575AeotudyWqeepqqhxoq deficiencies (2 sources)Cobalamin deficiency; Translations: [Deficiency of other specified B group vitamins]74-17-5430OsaiyrmaWqmnjygakmerae (20 sources)Osteoarthritis of knee; Translations: [Osteoarthritis of knee, unspecified]Onset: 11-05-2021 Resolved: 95-12-6163RmqgevwIpcxe aftercare (6 sources)Other terminal computer operator (current) drug therapy; Translations: [OTH SOCIAL WORK THERAPIST CURRENT DRUG THERAPY]Onset: 04-16-2022 Resolved: 12-85-6028HfdykwivFalpb aftercare (1 source)[facility] (current) use of antithrombotics/antiplatelets; Translations: [PRISON ANTITHROMBOT/ANTIPLATLETS]Onset: 00-84-7610Hlokigjd Other aftercare (12 sources)Encounter for other orthopedic aftercareEpisodicOther aftercare (12 sources)Encounter for other specified surgical aftercareEpisodicOther connective tissue disease (2 sources)Presence of right artificial knee joint; Translations: [PRESENCE RT ARTIFICIAL K]Onset: 78-97-7485XndcdapMlljw connective tissue disease (20 sources)Presence of left artificial knee joint; Translations: [Presence of total left knee joint prosthesis]Onset: 61-07-9128ZyyrcasFckdk connective tissue disease (12 sources)History of arthroplasty of left knee; Translations: [Presence of left artificial knee joint]Onset: 432073-49-9817VuaiiwjRixbp connective tissue disease (12 sources)History of total knee arthroplasty; Translations: [Presence of unspecified artificial knee joint]Onset: 289679-87-0810LbbtlojWbzxp connective tissue disease (1 source)History of left total knee replacement; Translations: [Presence of left artificial knee joint]63-31-1968VptasmmQjozg connective tissue disease (20 sources)Trochanteric bursitis, left hip; Translations: [TROCHANTERIC BURSITIS LEFT HIP]Onset: 71-14-9285TmmpooisCddff diseases of kidney and ureters (20 sources)Hyperparathyroidism due to renal insufficiency; Translations: [Secondary hyperparathyroidism of renal origin]ChronicOther diseases of kidney and ureters (4 sources)Secondary hyperparathyroidism of renal origin; Translations: [SEC HYPERPARATHYROIDISM RENAL ORIGN]Onset: 09-25-2021 Resolved: 92-33-8243ZqnlxsbOepjs ear and sense organ disorders (4 sources)Sensorineural hearing loss, bilateral; Translations: [Sensorineural hearing loss, bilateral]35-92-4550KwchmvtYlqkr ear and sense organ disorders (2 sources)Ear sensations - finding; Translations: [Other specified disorders of ear, bilateral]58-81-7421YhqfgvubMmrzl ear and sense organ disorders (2 sources)Bilateral tinnitus; Translations: [Tinnitus, bilateral]03-14-2025 EpisodicOther endocrine disorders (20 sources)Hypoglycemia; Translations: [Hypoglycemia, unspecified]ChronicOther endocrine disorders (5 sources)Hypoglycemia, unspecified; Translations: [Hypoglycemia E16.2]Onset: 07-11-2021 Resolved: 39-01-6823SgeriweDpghl endocrine disorders (2 sources)Hyperparathyroidism; Translations: [Hyperparathyroidism, unspecified] 83-90-4357DwlvbjcVxjbr gastrointestinal disorders (8 sources)Bariatric surgery status; Translations: [Gastric bypass status for obesity Z98.84]Onset: 07-11-2021 Resolved: 05-28-4062NepseomkMttma lower respiratory disease (2 sources)Dyspnea; Translations: [Shortness of breath]EpisodicOther nervous system disorders (20 sources)Chronic pain; Translations: [Other chronic pain]ChronicOther nervous system disorders (7 sources)Other chronic pain; Translations: [Other chronic pain G89.29]Onset: 07-31-2021 Resolved: 70-28-0323KepxqmzBtobj nervous system disorders (4 sources)Chronic pain syndrome; Translations: [CHRONIC PAIN SYNDROME]Onset: 14-14-1340MxrhrkrUvbzv non-traumatic joint disorders (20 sources)Pain in left knee; Translations: [Pain, joint, knee, left]Onset: 12-21-2017 Resolved: 51-30-4844XodjysnzWlbpv non-traumatic joint disorders (20 sources)Arthralgia of the lower leg; Translations: [Pain in right knee] EpisodicOther non-traumatic joint disorders (14 sources)Pain in left hip; Translations: [Left hip pain]Onset: 04-28-2025 EpisodicOther non-traumatic joint disorders (14 sources)Effusion, left knee; Translations: [Effusion, left knee]Onset: 76-64-3188AyhmxqorHpgvy non-traumatic joint disorders (2 sources)Hip pain; Translations: [Pain in left hip]17-81-4812FjjylwsyTvehj nutritional; endocrine; and metabolic disorders (20 sources)Body mass index 40+ - severely obese; Translations: [Morbid obesity] Onset: 385420-90-5269MzkjhiqJjknm nutritional; endocrine; and metabolic disorders (20 sources)Morbid obesity; Translations: [Morbid (severe) obesity due to excess calories]Onset: 950899-19-0703OfhrrmeIyyet nutritional; endocrine; and metabolic disorders (20 sources)Metabolic syndrome X; Translations: [Metabolic syndrome]ChronicOther nutritional; endocrine; and metabolic disorders (4 sources)Morbid (severe) obesity due to excess calories; Translations: [Morbid obesity E66.01]Onset: 07-10-2021 Resolved: 82-35-2468MxkfdskZhrbf nutritional; endocrine; and metabolic disorders (8 sources)Body mass index (BMI) 45.0-49.9, adult; Translations: [BMI 45.0-49.9, adult Z68.42]Onset: 07-11-2021 Resolved: 58-50-2001RkvfqahGsngh nutritional; endocrine; and metabolic disorders (8 sources)Metabolic syndrome; Translations: [Metabolic syndrome X E88.81]Onset: 07-11-2021 Resolved: 06-99-2019AkjoaynJueqo nutritional; endocrine; and metabolic disorders (20 sources)Obesity; Translations: [Obesity, unspecified]ChronicOther nutritional; endocrine; and metabolic disorders (4 sources)Body mass index (BMI) 40.0-44.9, adultOnset: 05-20-2022 Resolved: 62-27-0225HsoenvkJfixw nutritional; endocrine; and metabolic disorders (3 sources)Obese class II; Translations: [Obesity, Class II, BMI 35-39.9]Onset: 912389-66-6572YwolthfYfozd nutritional; endocrine; and metabolic disorders (2 sources)Hypomagnesemia; Translations: [Hypomagnesemia]40-23-5171QoyjgrcMnmnt nutritional; endocrine; and metabolic disorders (2 sources)Hyperuricemia; Translations: [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 inflammatory arthritis and tophaceous disease]77-11-8484EdrfgglcJqgpg upper respiratory disease (20 sources)Allergic rhinitis; Translations: [Allergic rhinitis, unspecified] Onset: 289605-10-5078LxsuujiOadwr upper respiratory disease (4 sources)Allergic rhinitis, unspecified; Translations: [Allergic rhinitis J30.9]Onset: 07-10-2021 Resolved: 02-70-0368BzecgkqGruhwt media and related conditions (2 sources)Dysfunction of bilateral eustachian tubes; Translations: [Unspecified Eustachian tube disorder, bilateral]26-88-7739DybizziqTycmxoztrm and visceral atherosclerosis (12 sources)Atherosclerosis of artery ; Translations: [Unspecified atherosclerosis]Onset: 225978-51-9719ZojipugGaxpigmma heart disease (12 sources)Pulmonary hypertension; Translations: [Pulmonary hypertension, unspecified]Onset: 890502-32-5024KjysyjbIihmzmti codes; unclassified (2 sources)Sleep apnea; Translations: [Unspecified sleep apnea]ChronicResidual codes; unclassified (20 sources)Obstructive sleep apnea syndrome; Translations: [Obstructive sleep apnea (adult) (pediatric)]Onset: 054329-75-0186JqzxaubMcpmwxvm codes; unclassified (12 sources)Obstructive sleep apnea (adult) (pediatric); Translations: [JEREMY (obstructive sleep apnea) G47.33]Onset: 07-10-2021 Resolved: 43-28-2604PunqhmvGmuarvmv codes; unclassified (20 sources)Insomnia; Translations: [Insomnia, unspecified]EpisodicScreening and history of mental health and substance abuse codes (20 sources)Ex-smoker; Translations: [Personal history of tobacco use]Episodic Comment on above:high school smoker;Spondylosis; intervertebral disc disorders; other back problems (20 sources)Degeneration of lumbar intervertebral disc; Translations: [Other intervertebral disc degeneration, lumbar region]Onset: 85-20-2287CkhltecWghcbhz disorders (20 sources)Nontoxic multinodular goiter; Translations: [Thyroid nodule]Onset: 85-20-5913QmytzooRdwosehxiogo (3 sources)Unknown / UNK(Unknown)Onset: 43-39-2651Yxeugumkeiyo (1 source)OTH SPEC SYSTEM INVOLV CONNECT TISS; Translations: [OTH SPEC SYSTEM INVOLV CONNECT TISS]Onset: 89-86-6553Xppdtoajyoit (1 source)Left knee pain, unspecified hisffqokst77-67-8398 Past or Other Problems Problem ClassificationProblemDateDocumented DateEpisodic/ChronicComplication of device; implant or graft (20 sources)Loosening of knee joint prosthesis; Translations: [Mechanical loosening of internal left knee prosthetic joint, subsequent encounter]Onset: 66-85-1522QnvhsyjaGszpyjkrgf associated with dizziness or vertigo (14 sources)Dizziness; Translations: [Dizziness and giddiness]Onset: 02-19-2012 28-92-2872YurorcwgDuqhpxslxq and other anemia (4 sources)Anemia, unspecified; Translations: [ANEMIA UNSPECIFIED]Onset: 09-25-2021 Resolved: 25-01-2331NmjzwhpeQinnnueuri and other anemia (20 sources)Iron deficiency anemia; Translations: [Iron deficiency anemia, unspecified]Onset: 468956-14-9457ZthwksqqMfaysusyyu and other anemia (12 sources)Anemia; Translations: [Anemia, unspecified]Onset: 02-18-2012 51-10-6407LusivkbdFehpyvvugacla (14 sources)Cervical lymphadenopathy; Translations: [Localized enlarged lymph nodes]Onset: 058562-68-2989IogvlcauPeeyy aftercare (1 source)Encounter for follow-up examination after completed treatment for conditions other than malignant neoplasm; Translations: [Encounter for follow-up examination after completed treatment for conditionsother than malignant neoplasm]Onset: 82-92-5480XnmcxiujFmbqe circulatory disease (20 sources)Low blood pressure; Translations: [Hypotension, unspecified]Onset: 193451-37-9250PebzcxasFpxsf connective tissue disease (20 sources)Cramp; Translations: [Cramp and spasm]Onset: EpisodicOther connective tissue disease (12 sources)Cramp of muscle of left lower limb; Translations: [Cramp and spasm] Onset: 667410-35-9222RoqeabsiEpvco connective tissue disease (11 sources)Fibromyalgia; Translations: [Fibromyalgia]Onset: 07-06-2017 35-12-2632AuiqbdxyJgewl diseases of kidney and ureters (20 sources)Acute renal insufficiency; Translations: [Disorder of kidney and ureter, unspecified]Onset: 167608-81-6720JnolrtnjNonxf gastrointestinal disorders (20 sources)History of bariatric surgical procedure; Translations: [Bariatric surgery status]Onset: 316869-53-9767FfoxfcfeZnhjq lower respiratory disease (12 sources)Dyspnea on exertion; Translations: [Other forms of dyspnea]Onset: 540800-18-6707SmgratjfBysko lower respiratory disease (12 sources)Restrictive lung disease; Translations: [Other disorders of lung] Onset: 863889-93-3988LyiyodfqFeaxg non-traumatic joint disorders (1 source)Pain in right knee; Translations: [PAIN IN RIGHT KNEE]Onset: 63-23-4151HednmvorCrxsj nutritional; endocrine; and metabolic disorders (4 sources)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 inflammatory arthritis and tophaceous disease; Translations: [HU W/OSIGNS IA AND TOPGRACECEOUS DZ]Onset: 09-05-2021 Resolved: 01-44-6935HckhbkdlNrlwx screening for suspected conditions (not mental disorders or infectious disease) (20 sources)Abnormal results of cardiovascular function studies; Translations: [Abnormal result of cardiovascular function study, unspecified]Onset: 02-19-2012 97-38-5781OrwglakcLgctn skin disorders (4 sources)Localized swelling, mass and lump, left lower limb; Translations: [LOC SWELL MASS LUMP LT LOWER LIMB]Onset: 75-59-3906DtrlnmllSxmizvhhwzi and intestinal abscess (20 sources)Infectious disease of abdomen; Translations: [Peritonitis, unspecified]Onset: 100231-64-2981ZqwfysqmXcokptlbz; thrombophlebitis and thromboembolism (20 sources)Left lower limb vein thrombophlebitis; Translations: [Phlebitis and thrombophlebitis of other deep vessels of left lower extremity]Onset: 03-17-2023 31-78-5999WqfmyfheWtcocjms codes; unclassified (14 sources)Edema; Translations: [Edema]Onset: 253171-51-7567Etqqvvmq Residual codes; unclassified (8 sources)Localized edema; Translations: [Lower extremity edema R60.0]Onset: 07-25-2021 Resolved: 92-59-0268CyyuphyhYsdanjbq codes; unclassified (1 source)Insomnia, unspecified; Translations: [Insomnia, unspecified type G47.00]Onset: 07-25-2021 Resolved: 30-02-6283UuucofjzPlngofxn codes; unclassified (14 sources)Localized edema; Translations: [Localized edema]Onset: 05-27-2018 03-42-1805ElrqbqipCtuq and subcutaneous tissue infections (20 sources)Cellulitis; Translations: [Cellulitis, unspecified]Onset: 02-03-2024 62-21-0788HxkvouhmHbqdcsbnupv; intervertebral disc disorders; other back problems (20 sources)Pain in thoracic spine; Translations: [Low back pain]Onset: 07-25-2021 Resolved: 27-77-3814YbqmjxlcAemtdxpgzarh (1 source)Z96.651Onset: 72-15-8930Ljajulb tract infections (20 sources)Urinary tract infectious disease; Translations: [Urinary tract infection, site not specified]Onset: 130952-22-0468WeomadthGrjca infection (20 sources)Viral disease; Translations: [Viral infection, unspecified]Onset: 171492-19-2857Ocfxcvqs Results Test NameValueInterpretationReference RangeFacilityMain OR Intraoperative Record on 83-35-1509Guiy OR Intraoperative RecordMain OR Intraoperative Record IntraOp Document Type FT Summary Primary Physician: Glen Bejarano MD Finalized Date/Time: 07/17/25 10:25:56 Pt. Name: RENUKA PADRON Shaun SinghB./Sex: 1955 Female Med Rec #: [id number] Physician: Glen Bejarano MD Financial #: [id number] Pt. Type: O Room/Bed: / Admit/Disch: 07/13/25 07:38:28 - 07/13/25 23:59:59 Institution: Case Times FT Entry 1 Patient Times In Room 07/13/25 08:52:00 Out Room 07/13/25 08:58:00 Procedure Times Start 07/13/25 08:56:00 Stop 07/13/25 08:58:00 Anesthesia Times Start 07/13/25 08:52:00 Stop 07/13/25 08:58:00 Last Modified By: Julia Vaughan RN 07/13/25 09:03:25 Case Attendance FT Entry 1 Entry 2 Entry 3 Case Attendee Florian Murray CRNA, RN, Julia Vincent RN, Bessie Zamorano Role Performed UNDERLINER Operations Liaison - Primary Operations Liaison - Primary Time In 07/13/25 08:52:00 07/13/25 08:52:00 07/13/25 08:52:00 Time Out 07/13/25 08:58:00 07/13/25 08:58:00 07/13/25 08:58:00 Procedure EGD(.) EGD(.) EGD(.) Comments Dr. Ellis supervising Last Modified By: Julia Vaughan RN, RN, Julia Rowan RN 07/13/25 09:04:49 07/13/25 09:04:49 07/13/25 09:04:49 Entry 4 Case Attendee Glen Bejarano MD Role Performed Surgeon - Primary Time In 07/13/25 08:52:00 Time Out 07/13/25 08:58:00 Procedure EGD(.) Comments Last Modified By: Julia Vaughan RN 07/13/25 09:04:49 Perioperative Protocols FT Pre-Care Text: Implements protective measures prior to operative or invasive procedure, confirms identity before the operative or invasive procedure, verifies operative procedure, surgical site, and laterality Entry 1 Procedure(s) EGD(.) Patient Identity Birthday, ID Band Verified (select at Check, Patient least 2): Participation Consents / H and P Anesthesia Consent, Operative Site N/A Verified H&P, Surgery/Procedure Marking Verified Consent Surgical Site No Laterality Verified n/a Verified Procedure Verified Yes Correct Patient Yes Position Verified Availability Equipment, Medication Prep Dry n/a Verified (If Applicable) PreOp Antibiotic No Time Out Florian Murray CRNA, Given Participants Julia Vaughan RN, Sarmini MD, Carlton Parsons RN, Bessie Zamorano Time Out Complete 07/13/25 08:54:00 Outcomes Met? Yes Last Modified By: Julia Vaughan RN 07/13/25 08:57:54 Post-Care Text: The patient is free from signs and symptoms of injury caused by extraneous objects Allergy Information FT Pre-Care Text: Verifies allergies Entry 1 Allergies Reviewed? Yes Allergies Reviewed Self/Patient With Outcomes Met? Yes Last Modified By: Julia Vaughan RN 07/13/25 08:58:02 Post-Care Text: The patient received appropriate medication(s) safely administered during the perioperative period Surgical Procedures FT Entry 1 Procedure Description Procedure EGD Modifiers . Surgeon Description EGD wtih empiric esophageal dilation using #56F delcid dilator. Primary Procedure Yes Primary Surgeon Glen Bejarano MD Start 07/13/25 08:56:00 Stop 07/13/25 08:58:00 Anesthesia Type General Surgical Service Gastroenterology Wound Class 2 - Clean-Contaminated Last Modified By: Julia Vaughan RN 07/13/25 09:03:28 General Case Data FT Pre-Care Text: Classifies surgical wound, implements aseptic technique, initiates traffic control Entry 1 Case Information OR ENDO 1 FT Case Level Level 2 Wound Class 2 - Clean-Contaminated Specialty Gastroenterology ASA Class 3 Preop Diagnosis DYSPHAGIA Postop Same As Preop No Postop Diagnosis Mild inflammation at Outcomes Met? Yes surgical anastomosis Last Modified By: Julia Vaughan RN 07/13/25 08:58:55 Post-Care Text: The patient is free from signs and symptoms of infection Skin Assessment (Pre Procedure) FT Pre-Care Text: Implements protective measures to prevent skin/ tissue injury due to thermal or mechanical sources Evaluates for signs and symptoms of physical injury to skin and tissue Entry 1 Skin Integrity Intact, [place], Warm, & Skin Abnormality No Dry Outcomes Met? Yes Last Modified By: Julia Vaughan RN 07/13/25 09:03:40 Post-Care Text: The patient is free from signs and symptoms of injury caused by extraneous objects Patient Positioning FT Pre-Care Text: Identifies physical alterations that require additional precautions for procedure-specific positioning, verifies presence of prosthetics or corrective devices, positions the patient, evaluates the patient for signs and symptoms of injury as a result of positioning Entry 1 Procedure EGD(.) Body Position Lateral, right side up Feet Uncrossed? Yes Left Arm Position Resting at Side Right Arm Position Resting at Side Left Leg Position Extended Right Leg Position Extended Positioning Device Safety Strap, Pillow Under Head Large Press Points Checked Yes By Julia Vaughan RN Outcomes La (more content not included)...[facility] Discharge Instructionson 84-65-5560Hxuwrcsgm InstructionsDischarge Instructions RENUKA PADRON Shaun :1955 Visit Date:07/13/2025 Inpatient Discharge Instructions Your Care Team Admitting Physician - Glen Bejarano MD Referring Physician - Glen Bejarano MD Reason for Your Visit DYSPHAGIA Your Diagnosis Dysphagia This Is Your Medications List acetaminophen-oxycodone (acetaminophen-oxycodone 325 mg-5 mg oral tablet) albuterol (albuterol HFA 90 mcg/inh MDI) alendronate (alendronate 5 mg oral tablet) allopurinol budesonide-formoterol (Symbicort 160/4.5 inhalation aerosol with adapter) bumetanide (bumetanide 1 mg Tab) cholecalciferol (Vitamin D3) cholecalciferol (Vitamin D3) cyclobenzaprine duloxetine (duloxetine 30 mg oral delayed release capsule) ferrous sulfate fluticasone nasal (fluticasone 0.05 mg/inh Nasal [place]) gabapentin (gabapentin 300 mg Cap) hydrOXYzine magnesium gluconate (magnesium gluconate 500 mg oral tablet) midodrine (midodrine 2.5 mg oral tablet) ondansetron (ondansetron 4 mg Tab) pantoprazole phentermine (phentermine 37.5 mg Tab) polycarbophil (Fiber Tabs) sucralfate (Carafate 1 gram Tab) temazepam tizanidine topiramate (topiramate 25 mg Tab) Procedure History EGD - esophagogastroduodenoscopy (07/13/2025), Colonoscopy (06/01/2024), Esophagogastroduodenoscopy(06/01/2024), EGD (esophagogastroduodenoscopic) electrohydraulic lithotripsy of bezoar in stomach (06/15/2019), Colonoscopy (08/02/2018), Appendicectomy, Both knees, Caesarean section, Gastric bypass, Tendonitis of left ankle, Tonsillectomy. Discharge Vitals Temperature (Temporal Artery) 36.2 ???C Heart Rate (Monitored) 61 Respiratory Rate 12 Blood Pressure 126/53 Height 160 cm Weight 96 kg BMI 37.5 What to do next Instructions From Your Doctor Event Name Event Result Discharge Activity Resume normal activities in 24 hours Discharge Restrictions No driving for 24 hrs Discharge Diet(s) Regular Call Your Doctor For Persistent or heavy bleeding Discharge Instructions Discharge Instructions New Follow Up Appointments after Discharge Follow Up with Darci BRYANT, KLAUS Parsons, [facility] When: Comments: Call for any problems. If you do not have a follow-up appointment already scheduled, please call the office. Where: [address], [address] [address]- [phone] Business (1) Medications What How Much When Instructions Next Dose Unchanged acetaminophen-oxycodone (acetaminophen-oxycodone 325 mg-5 mg oral tablet) 1 Tablets By Mouth Every 6 hours as needed for as needed for pain Unchanged albuterol (albuterol HFA 90 mcg/ inh MDI) Respiratory (Inhalation), 0 Refill(s) Unchanged alendronate (alendronate 5 mg oral tablet) 1 By Mouth Every day osteoporosis Unchanged allopurinol By Mouth Every day Unchanged budesonide-formoterol (Symbicort 160/ 4.5 inhalation aerosol with adapter) 10 gm, 0 Refill(s), INHALE 2 PUFFS TWICE A DAY Unchanged bumetanide (bumetanide 1 mg Tab) 180 EA, 0 Refill(s), TAKE ONE TABLET BY MOUTH TWICE A DAY Unchanged cholecalciferol (Vitamin D3) By Mouth 2 times a day Unchanged cholecalciferol (Vitamin D3) Oral Unchanged cyclobenzaprine 10 Unknown, Oral Unchanged duloxetine (duloxetine 30 mg oral delayed release capsule) By Mouth Every day 1 Unknown, 0 Refill(s) Unchanged ferrous sulfate 2,000 Milligram By Mouth 2 times a day Unchanged fluticasone nasal (fluticasone 0.05 mg/ inh Nasal [place]) 2 Sprays Nasal Inhalation Every day Unchanged gabapentin (gabapentin 300 mg Cap) 1 Capsules By Mouth 3 times a day Oral Unchanged hydrOXYzine 10 Milligram By Mouth 4 [...] day Unchanged phentermine (phentermine 37.5 mg Tab) 1 Tablets By Mouth Unchanged polycarbophil (Fiber Tabs) 1 tab By [...] pulmonary disease) Hypertension Kidney failure Education Materials Esophageal Dilatation [Image (more content not included)...[facility] above:Result Comment: Electronically Signed By: Jah REYNA, Megan Zayas\Date and Time Signed: 07/13/25 09:11 EDTMain OR PACU I Recordon [id number] OR PACU I RecordMain OR PACU I Record PACU Phase I Document Type FT Summary Primary Physician: Glen Bejarano MD Finalized Date/Time: 07/13/25 09:43:05 Pt. Name: NEREIDA RENUKAPAYAL Mojica./Sex: 1955 Female Med Rec #: [id number] Physician: Geln Bejarano MD Financial #: [id number] Pt. Type: O Room/Bed: / Admit/Disch: 07/13/25 07:38:28 - Institution: Case Times PACU I FT [...] to medications Entry 1 In PACU I 07/13/25 09:03:00 Discharge from PACU 07/13/25 09:33:00 I Outcomes Met? Yes Last Modified By: Gayla Mcnally RN 07/13/25 09:42:51 Post-Care Text: The patient demonstrates knowledge of the expected response to the operative or invasive procedure The patient's care is consistent with the individualized perioperative plan of care The patient's rightto privacy is maintained The patient's value system, [...] with or improved from baseline levels established preoperativelyThe patient's cardiovascular status is consistent with or improved from baseline levels established preoperatively The patient's cardiovascular status is consistent with or improved from baseline levels established preoperatively The patient demonstrates and/or reports adequate pain control throughout the perioperative period The patient received appropriate medication(s), safely administered during the perioperativeperiod Acuity Level PACU I FT Entry 1 Start Time 07/13/25 09:03:00 Stop Time 07/13/25 09:33:00 Acuity Level Acuity Level I Last Modified By: Gayla Mcnally RN 07/13/25 09:43:03 Finalized By: Gayla Mcnally RN Document Signatures Signed By: Gayla Mcnally RN 07/13/25 09:43NoCleveland Clinic Medina HospitalMain OR Preoperative Recordon [id number] OR Preoperative RecordMain OR Preoperative Record Holding Area Document Type FT Summary Primary Physician: Glen Bejarano MD Finalized Date/Time: 07/13/25 07:51:46 Pt. Name: RENUKA PADRON/Sex: 1955 Female Med Rec #: [id number] Physician: Glen Bejarano MD Financial #: [id number] Pt. Type: O Room/Bed: / Admit/Disch: 07/13/25 07:38:28 - Institution: Case Times Holding FT Pre-Care Text: Verifies consent for planned procedure, identifies individual values and wishes concerning care, includes family members in perioperative teaching Secures patient's records' belongings, and valuables, maintains patient's dignity and privacy, and maintains patient confidentiality Entry 1 In Holding 07/13/25 07:45:00 Outcomes Met? Yes Last Modified By: Marita Schneider RN 07/13/25 07:51:05 Post-Care Text: The patient participates in decisions affecting his or her perioperative plan of care The patient'sright to privacy is maintained Surgery Checklist FT Entry 1 Patient Birthday, ID Band Procedure History and Physical, Identification: Check, Patient Verification: Surgical Consent, With Participation Patient NPO after Midnight: Yes Date/Time: 07/13/25 00:00:00 Personal Items: Glasses Personal Items glasses, dentures, Comment: bilateral knee replacement Limitations: n/a Complaints of Pain: No Pain Comment: denies Operative Site n/a Marking: Marked By: n/a Availability Equipment Verified: Does Patient Smoke No Patient states Yes Comment - Adult son- Meño postop adult Supervision supervision available Case Cancelled in No Holding Area see comments below for reason Last Modified By: Marita Schneider RN 07/13/25 07:51:44 Finalized By: Marita Schneider RN Document Signatures Signed By: Marita Schneider RN 07/13/25 07:51[facility] Erythrocyte distribution width Auto (RBC) [Ratio]Ordered By: Mabel Henderson on 85-79-4097Hwzutiwuuzh distribution width (RBC) [Ratio]14.1 %11.0-15.0[facility] County HospitalGlomerular filtration rate (GFR) estimation in non- AmericanOrdered By: Mabel Henderson on 71-94-2997ITL/1.73 sq M.predicted among non-blacks MDRD (S/P/Bld) [Vol rate/Area]50 mL/min/{1.73_m2}Low>=60 mL/min/1.73m 2FSelect Medical Specialty Hospital - AkronHematocrit Auto (Bld) [Volume fraction]Ordered By: Mabel Henderson on 29-13-8602Nenlorjixz (Bld) [Volume fraction]38.4 %36.0-48.0[facility] HospitalHemoglobin [Mass/volume] in BloodOrdered By: Mabel Henderson on 05-26-4465Glkgaweeni (Bld) [Mass/Vol]12.2 g/dL12.0-16.0[facility] HospitalLaboratory - Chemistry and Chemistry - challengeOrdered By: Mabel Henderson on 03-33-2920Yknpdfl [Mass/Vol]3.3 g/dLLow3.4-5.0[facility] HospitalCalcium [Mass/Vol] 8.5 mg/dL8.5-10.1FSelect Medical Specialty Hospital - AkronChloride [Moles/Vol]107 mmol/L 98-107[facility] HospitalCO2 [Moles/Vol]27.2 mmol/L21.0-32.0 [facility] HospitalCreatinine [Mass/Vol]1.08 mg/dLHigh0.55-1.02 [facility] HospitalGFR/1.73 sq M.predicted MDRD (S/P/Bld) [Vol rate/Area]mL/min/{1.73_m2}>=60 mL/min/1.73m 2FSelect Medical Specialty Hospital - Akron Glucose [Mass/Vol]100 mg/nW10-808ClqsssrieWood County HospitalPotassium [Moles/Vol]3.9 mmol/L3.5-5.1FTrinity Health System Twin City Medical Centerodium [Moles/Vol] 143 mmol/N859-754OqhfkwemdWood County HospitalUrea nitrogen [Mass/Vol]33.0 mg/dLHigh7.0-18.0[facility] HospitalUrea nitrogen/Creatinine [Mass ratio]30.6 mg/mgWood County HospitalBilirubin Ql (U)Negative NEGATIVEWood County HospitalGlucose (U) [Mass/Vol]NegativeNEGATIVE [facility] HospitalKetones Ql (U)NegativeNEGATIVEWood County HospitalpH (U)7.5 [pH]5.0-9.0[facility] Specific gravity (U) [Rel density]1.0101.005-1.025[facility] HospitalUrobilinogen Qn (U)0.2 {Herrera'U}/dL0.2-1.0[facility] HospitalLaboratory - Specimen informationOrdered By: Mabel Henderson on 07-03-2025 Appearance (U)CLEARCLEARFSelect Medical Specialty Hospital - AkronColor (U)LT. YELLOW YELLOWWood County HospitalLaboratory - UrinalysisOrdered By: Mabel Henderson on 27-34-4720Ghslnvmca esterase Test strip Ql (U)SMALLAbnormalNEGATIVE [facility] HospitalNitrite Ql (U)NegativeNEGATIVEWood County HospitalProtein (U) [Mass/Vol]29.7 mg/dLHigh<=11.9[facility] HospitalProtein Ql (U)TRACE mg/dLNEG/TRACEWood County HospitalLeukocytes [#/volume] corrected for nucleated erythrocytes in Blood by Automated counOrdered By: Mabel Henderson on 10-82-2431IKJ corrected for nucl RBC Auto (Bld) [#/Vol]6.6 10 3/uL4.0-11.0[facility] MCH Auto (RBC) [Entitic mass]Ordered By: Mabel Henderson on 82-42-9635QCR (RBC) [Entitic mass]28.3 pg26.7-34.0[facility] HospitalMCHC Auto (RBC) [Mass/Vol]Ordered By: Mabel Henderson on 31-13-1913SIFE (RBC) [Mass/Vol]31.8 g/dL 29.9-35.2FSelect Medical Specialty Hospital - AkronMCV Auto (RBC) [Entitic vol]Ordered By: Mabel Henderson on 82-68-6476WYH (RBC) [Entitic vol]89.1 fL81.0-99.0[facility] HospitalNo Panel InformationOrdered By: Mabel Henderson on 74-47-5779Smxvmdrpoqa Hormone (Intact)161 pg/xGIfbirqxx28-73OkjcvskdyWood County HospitalComment on above:Performed at: - [facility] [address] [id number] Director: Ziggy Rodney PhD, Phone: [phone] Phosphorus Level3.8 mg/dL2.6-4.7FSelect Medical Specialty Hospital - AkronUrine Occult BloodNegativeNEGGalion HospitalUrine Random Creatinine 102.74 mg/dL20.00-300.00[facility] HospitalPlatelet mean volume Auto (Bld) [Entitic vol]Ordered By: Mabel Henderson on 84-75-0402Nqbwnkmr mean volume (Bld) [Entitic vol]9.8 fL9.5-13.5FSelect Medical Specialty Hospital - Akron Platelets Auto (Bld) [#/Vol]Ordered By: Mabel Henderson on 38-66-5112Pcscfqrxg (Bld) [#/Vol]250 10 3/fR689-595RamgkqdmuWood County HospitalRBC Auto (Bld) [#/Vol]Ordered By: Mabel Henderson on 52-89-4120VKJ (Bld) [#/Vol]4.31 10 6/uL 4.20-5.40The Christ Hospitalerum or plasma anion gap determinationOrdered By: Mabel Henderson on 54-58-7374Llfoa gap [Moles/Vol]12.7 mmol/LFSelect Medical Specialty Hospital - AkronUrine protein/creatinine ratioOrdered By: Mabel Henderson on 28-11-2988Hrmcegc/Creatinine (U) [Ratio]0.29[facility] HospitalAmbulatory Visit Summaryon 24-63-3821Otrlhnwsrs Visit Summary Ambulatory Visit Summary RENUKA PADRON :1955 Visit Date:06/13/2025 Ambulatory Visit Instructions Your [...] sulfate fluticasone nasal (fluticasone 0.05 mg/inh Nasal [place]) gabapentin (gabapentin 300 mg Cap) hydrOXYzine magnesium gluconate (magnesium gluconate 500 mg oral tablet) midodrine (midodrine 2.5 mg oral tablet) ondansetron (ondansetron 4 mg Tab) pantoprazole phentermine (phentermine 37.5 mg Tab) polycarbophil (Fiber Tabs) sucralfate (Carafate 1 gram Tab) temazepam tizanidine topiramate (topiramate 25 mg Tab) Procedures Performed Colonoscopy (06/01/2024), Esophagogastroduodenoscopy (06/01/2024), EGD (esophagogastroduodenoscopic) electrohydraulic [...] delayed release capsule) 1 Unknown, 0 Refill(s) Contactprescribing physician if questions or concerns Unchanged ferrous sulfate 2,000 Milligram By Mouth 2 times a day Contact prescribing physician if questions or concerns Unchanged fluticasone nasal (fluticasone 0.05 mg/ inh Nasal [place]) 2 Sprays Nasal Inhalation Every day Contact [...] oral tablet) 1 Tablets By Mouth Every dayContact prescribing physician if questions or concerns Unchanged [...] prescribing physician if quest (more content not included)...[facility]/Clinic Noteon 06-13-2025 Gastroenterology Office/Clinic NoteGastroenterology Office/Clinic Note Chief Complaint dysphagia HPI Staff [...] examined esophagus. Empiric dilation with Delcid 54 Rwandan was done, no mucosal disruption was noted [...] EGD 05/2024: Empiric dilation with Delcid 54 [place]an - Schedule EGD with Delcid dilation to evaluate. Discussed risks such as bleeding, injury and perforation as well as benefits. Patient agreeable. IAmanda, personally scribed for Glen Bejarano on 06/13/2025 10:55:20. . Follow-up No qualifying data available Problem List/Past Medical History Ongoing CHF (congestive heart failure) COPD (chronic obstructive pulmonary disease) Hypertension Kidney failure Historical No qualifying data Procedure/Surgical History Colonoscopy (06/01/2024), Esophagogastroduodenoscopy (06/01/2024), EGD (esophagogastroduodenoscopic) [...] tab, Oral, Daily fluticasone 0.05 mg/inh Nasal [place], 2 spray(s), Nasal, Daily gabapentin 300 mg [...] 07/19/2018 Recorded influenza virus (more content not included)...[facility] Comment on above:Result Comment: Electronically Signed By: Amanda Tyson MA\.br\Date and Time Signed: 06/13/25 10:58 EDT\.br\Electronically Co-Signed By: Darci BRYANT, Glen Ta\.br\Date and Time Co-Signed: 06/13/25 16:19 EDTC REACTIVE PROTEINon [id number] High sensitivity method [Mass/Vol]4.44 mg/LNINF - 10.00 mg/LOSU [facility], Edwin ShawInterpretation and review of laboratory resultsNoWatsonville Community Hospital– WatsonvilleCRP [Mass/Vol] 4.44 mg/LNormal<10.00[facility]len[facility] HospitalComment on above:Performed By: #### CRP #### U [facility] (DEFAULT) [address] [address]VDB,PLATELETSon 83-19-9566Oqhqmauuhdn distribution width (RBC) [Ratio]14.2 %10.8 - 14.9 %[facility] HospitalHematocrit (Bld) [Volume fraction]39.5 %34.9 - 44.3 %[facility] HospitalHemoglobin (Bld) [Mass/Vol] 12.5 g/dL11.4 - 15.2 g/dLWestern Reserve HospitalInterpretation and review of laboratory resultsNoKindred Hospital LimaMCH (RBC) [Entitic mass]27.7 pg 25.9 - 33.9 pgWestern Reserve HospitalMCHC (RBC) [Mass/Vol]31.6 g/dL31.4 - 35.9 g/dLWestern Reserve HospitalMCV (RBC) [Entitic vol]87.4 fL79.6 - 97.7 [facility] Medical CenterPlatelet mean volume (Bld) [Entitic vol]11.6 fL8.5 - 12.2 [facility] CenterPlatelets (Bld) [#/Vol]232 10*3/uL150 - 393 K/[facility] CenterRBC (Bld) [#/Vol]4.52 10*6/[facility] CenterWBC (Bld) [#/Vol]8.1 10*3/uL3.99 - 11.19 K/[facility] Medical CenterOSU [facility], Edwin ShawHematocrit (Bld) [Volume fraction]39.5 %Huyolf89.9-44.3[facility]leness HospitalComment on above:Performed By: #### HEMOGC #### [facility] (DEFAULT) [address] [place], [place] [address]Hjafpkczbv (Bld) [Mass/Vol]12.5 g/zWQunjsn14.4-15.2[facility]len[facility] HospitalComment on above:Performed By: #### HEMOGC #### [facility] (DEFAULT) [address] [place] [address] 68[address]JSL (RBC) [Entitic vol]87.4 cJYkdazq05.6-97.7[facility]len[facility] HospitalComment on above:Performed By: #### HEMOGC #### [facility] (DEFAULT) [address] [place] [address] 27457Yyni Cell Hgb27.7 cgMjvnaw28.9-33.9[facility] HospitalComment on above:Performed By: #### HEMOGC #### [facility] (DEFAULT) [address] [place] [address] 34992Odrt Cell Hgb Conc31.6 g/xPWkzkfn84.4-35.9[facility]len[facility] HospitalComment on above:Performed By: #### HEMOGC #### [facility] (DEFAULT) [address] [place], [place] [address]Dftxjdth mean volume (Bld) [Entitic vol]11.6 fLNormal8.5-12.2 [facility] HospitalComment on above:Performed By: #### HEMOGC #### [facility] (DEFAULT) [address] [place] [address] 05367Ddjulqitj (Bld) [#/Vol]232 10*3/pTNxzwrb109-626FwbzOhiohealth O'Bleness HospitalComment on above:Performed By: #### HEMOGC #### [facility] (DEFAULT) [address] [place] [address] 137[address]JMW (Bld) [#/Vol]4.52 10*6/uLNormal3.91-5.04[facility]len[facility] HospitalComment on above:Performed By: #### HEMOGC #### U [facility] (DEFAULT) [address] [place] [address] 32806ZNR Lmhoqxsjsaab87.2 %Erwqmn27.8-14.9[facility] HospitalComment on above:Performed By: #### HEMOGC #### U [facility] (DEFAULT) [address] [place] [address] 04335CSW (Bld) [#/Vol]8.10 10*3/uLNormal3.99-11.19[facility] HospitalComment on above:Performed By: #### HEMOGC #### [facility] (DEFAULT) [address] [place] [address] 42064LGJDJQCGOIJFL RATE, AUTOMATEDon 78-97-3746DQO (Bld) [Velocity] 26 mm/hNINFOSU [facility], [facility] ShawInterpretation and review of laboratory resultsNormalOSU [facility] ShawOSU [facility], [facility] ShawESR Apacknsqtj05 mm/hrNormal<30[facility] HospitalComment on above: Performed By: #### ESR #### U [facility] (DEFAULT) [address] [place] [address]PJ HIP LEFT 2-3 VIEWSon 69-79-4324CK HIP LEFT 2-3 VIEWSEXAM: XR HIP LEFT 2-3 VIEWS, 04/28/2025 11:44 [...] neck/greater trochanter, possibly related to prior trauma. [facility] HospitalXR Hip - left 2 Viewson 04-28-2025 IMPRESSION: Moderate left hip osteoarthritis. Deformity of the left femoral neck/greater trochanter, possibly related to prior trauma. RADIOLOGYEXAM: XR HIP LEFT 2-3 VIEWS, 04/28/2025 11:44 [...] is anatomically aligned with moderate degenerative changes. RADIOLOGYWu oCle MD - 04/28/2025 EXAM: XR HIP LEFT [...] neck/greater trochanter, possibly related to prior trauma. leveland Clinic FoundationRadiology Study observation (narrative)OSCleveland Clinic FoundationXR Hip - left 2 ViewsOrdered By: Wu Cole on 03-84-4418CPICleveland Clinic Foundation Work Phone: XR KNEE LEFT 3+ VIEWS W/ BILATERAL STANDING 1 VIEWon 47-91-3739FY KNEE LEFT 3+ VIEWS W/ BILATERAL STANDING 1 VIEWEXAM: XR KNEE LEFT 3+ VIEWS W/ BILATERAL [...] Posterior heterotopic ossification versus intra-articular loose bodies. NCherrington HospitalXR Knee - bilateral Views W standingon 26-69-6062OMCPCSHSCP: Intact total left knee arthroplasty hardware and appropriate alignment. Posterior heterotopic ossification versus intra-articular loose bodies. RADIOLOGYEXAM: XR KNEE LEFT 3+ VIEWS W/ BILATERAL [...] The proximal tibiofibular syndesmosis is anatomically aligned. RADIOLOGYWu Cole MD - 04/28/2025 EXAM: XR KNEE [...] Posterior heterotopic ossification versus intra-articular loose bodies. [facility] ShawOSU [facility], Edwin ShawRadiology Study observation (narrative)[facility], Edwin ShawUrine Cultureon 87-99-0995Arbmjbsj identified Cx Nom (U)<9,000 colonies/ml mixed bacterial skin contaminants 2 Days PERFORMED BY: [address] [place] [address] PATHOLOGIST RESPIRATORY THERAPY MANAGER ADILSON JUAREZ M.D.[facility] Physician GroupComment on above: Performed By: #### CUU #### [facility] [address] [address] USANo Panel Informationon 56-65-9029Ivaq Tone Audiometry Audio indicated a mild to severe sensorineural hearing loss, bilaterally. NOMS Lisseth SaldañaUS Thyroid glandon 40-51-1590[place]tw[place], [place] [address] Ultrasound Report Signed Patient: RENUKA PADRON MR#: [id number] : 1955 Acct:[id number] Age/Sex: 69 / F ADM Date: 01/24/25 Loc: US Attending Dr: Leah Barrera M.D. Ordering Physician: Leah Barrera M.D. Date of Service: 01/24/25 Procedure(s): US thyroid Accession Number(s): [id number] cc: PETER SOSA D.O.; Leah Barrera M.D. [place] [id number] Patient Name: RENUKA PADRON MRN: [id number] date: 1955 Sex: F Assigned Patient Location: US Current Patient Location: US Accession/Order Number: [id number] Exam Date: 01/24/2025 12:07 Report Date: 01/24/2025 [...] Tate Jr., D.O.01/24/2025 12:12 PM Dictation Location: [place] [address] Electronically authenticated by: [id number] Y Date: 01/24/2025 12:12 Dictated By: Carlos Tate M.D. Signed By: 01/24/25 1215 DD/ 1212 TD/TT: Technician Plant And Maintenance:TBHRadiology, Radiologist, - 01/24/2025 [place] [address] Ultrasound Report Signed Patient: RENUKA PADRON MR#: [id number] : 1955 Acct:[id number] Age/Sex: 69 / F ADM Date: 01/24/25 Loc: US Attending Dr: Leah Barrera M.D. Ordering Physician: Leah Barrera M.D. Date of Service: 01/24/25 Procedure(s): US thyroid Accession Number(s): [id number] cc: PETER OSSA D.O.; Leah Barrera M.D. [address] [place] [id number] Patient Name: RENUKA PADRON MRN: [id number] date: 1955 Sex: F Assigned Patient Location: US Current Patient Location: US Accession/Order Number: [id number] Exam Date: 01/24/2025 12:07 Report Date: 01/24/2025 [...] Tate Jr., D.O.01/24/2025 12:12 PM Dictation Location: [place] [address] Electronically authenticated by: [id number] Y Date: 01/24/2025 12:12 Dictated By: Carlos Tate M.D. Signed By: 01/24/25 1215 DD/ 1212 TD/TT: Technician Plant And Maintenance: DEB SaldañaRadiology Study observation (narrative)DEB Lewis Thyroid glandOrdered By: Radiologist Radiology on 47-49-7909NDQVNortheast Regional Medical Center Work Phone: ekg Rhythm Stripon 68-95-9684TXWAXUCHealth Greeley HospitalBasic Metab w/rfx MGon 57-58-2287Smxkr gap [Moles/Vol]9 mmol/LNormal9-16Bon [facility] on above:Performed By: #### PARK JAIMES #### [facility] [address] [place] [address] Pool Nurse: Anusha Lea, MDCalcium [Mass/Vol]8.7 mg/dLNormal8.6-10.4Bon [facility] on above:Performed By: #### PARK JAIMES #### [facility] [address] [place] [address] Pool Nurse: WILLIAM Marthloride [Moles/Vol]109 mmol/LIgxc37-074Jig [facility] on above:Performed By: #### BMPX, CDP #### [address] [place], [place] [address]83 Pool Nurse: Anusha Lea MDCO2 [Moles/Vol]23 mmol/KEqjajr13-80Sko [facility] on above:Performed By: #### BMPX, CDP #### [address] [place], [place] 20[address]183 Pool Nurse: WILLIAM Martreatinine [Mass/Vol]1.0 mg/dLHigh0.50-0.90Bon [facility] on above:Performed By: #### BMPX, CDP #### [address] [place], [place] 1899583 Pool Nurse: Anusha Lea MDGlucose [Mass/Vol]166 mg/fCVokd32-03Iyw [facility] on above:Performed By: #### BMPX, CDP #### [address] [place], [place] 54[address]383 Pool Nurse: SANDRA Martotassium [Moles/Vol]4.1 mmol/LNormal3.7-5.3Bon [facility] on above:Performed By: #### BMPX, CDP #### [address] [place], [place] 4095783 Pool Nurse: Anusha Lea MDSodium [Moles/Vol]141 mmol/KGcxdac217-168Rmq [facility] on above:Performed By: #### BMPX, CDP #### [address] [place] [address] Pool Nurse: Anusha Lea MDUrea nitrogen [Mass/Vol]19 mg/dLNormal8-23Bon [facility], IncCommclaren caro region on above:Performed By: #### BMPX, CDP #### [facility] [address] [place], [place] [address]83 Pool Nurse: Anusha Lea MDBUN/CRE Jucmt63Pchuhy3-70Pqqxj [facility] Comment on above:Performed By: #### BMPX, CDP #### [facility] [address] [place], [place] 47[address] Pool Nurse: Anusha Lea MDGFR/1.73 sq M.predicted among non-blacks MDRD (S/P/Bld) [Vol rate/Area]60 mL/min/{1.73_m2}Low>60[facility] on above:Result Comment: These results are not intended for [...] or following therapy that affects renal tubular secretion.Performed By: #### BMPX, CDP #### [address] [place] [address] Pool Nurse: Anusha Lea MDBacumberland hall hospital Metabolic Panel w/ Reflex to MGon 01-05-2025 Est, Glom Filt Gyee36Ygh- PINFBon [facility] on above: These results are not intended [...] tubular secretion. Interpretation and review of laboratory resultsAbnormFort Belvoir Community Hospital Urea nitrogen/Creatinine [Mass ratio]19 mg/mg9 - 20Bon SecCleveland Clinic Euclid HospitalBon [facility], IncCBC with Auto Differentialon 93-93-1654Iiiyonnde (Bld) [#/Vol]0 10*3/uLBon [facility], IncBasophils/100 WBC (Bld)0 %0 - 2 %[facility] HospitalEosinophils (Bld) [#/Vol]0.04 10*3/uLBon SecCleveland Clinic Euclid HospitalEosinophils/100 WBC (Bld)1 %1 - 4 %[facility] HospitalErythrocyte distribution width (RBC) [Ratio]14 %11.8 - 14.4 %[facility] Hematocrit (Bld) [Volume fraction]35.2 %Low36.3 - 47.1 %[facility] Hemoglobin (Bld) [Mass/Vol]11.2 g/dLLow11.9 - 15.1 g/dLBon [facility] Immature granulocytes (Bld) [#/Vol]0 10*3/uLBon [facility], IncImmature granulocytes/100 WBC (Bld)0 %0[facility] HospitalInterpretation and review of laboratory resultsAbnormalSouthampton Memorial HospitalLymphocytes/100 WBC (Bld)10 %Low24 - 43 %[facility] HospitalLymphocytes/100 WBC (Bld)0.44 %LowPoplar Springs HospitalH (RBC) [Entitic mass]28.4 pg25.2 - 33.5 pgBon Premier HealthHC (RBC) [Mass/Vol]31.8 g/dL28.4 - 34.8 g/dLBon Premier HealthV (RBC) [Entitic vol]89.3 fL82.6 - 102.9 fLSouthampton Memorial Hospital Monocytes/100 WBC (Bld)1 %Low3 - 12 %[facility] HospitalMonocytes/100 WBC (Bld)0.04 %LowSouthampton Memorial HospitalMorphology Jeff (Bld) [Interp]NormalBon [facility], IncNeutrophils/100 WBC (Bld)88 %High36 - 65 %[facility] HospitalNucleated RBC/100 WBC (Bld) [Ratio]0 %0.0 per 100 WBCSouthampton Memorial HospitalPlatelet mean volume (Bld) [Entitic vol]10.3 fL8.1 - 13.5 fLSouthampton Memorial HospitalPlatelets (Bld) [#/Vol]171 10*3/uLBon [facility], IncRBC (Bld) [#/Vol]3.94 10*6/uLLow3.95 - 5.11 m/uLSouthampton Memorial HospitalSegmented neutrophils/100 WBC (Bld)3.88 %[facility] HospitalWBC other (Bld) [#/Vol] 4.4Bon [facility] HospitalCBC with Diffon 01-05-2025 Abs. Basophil0.00 k/uLNormal0.0-0.2Mer[facility] Arkoma HospitalComment on above: Performed By: #### THEODORE, CDP #### [facility] [address] [place] [address] Dr[place], [facility]83 Pool Nurse: Marylou Mart.Imm.Granulocyte0.00 k/uLNormal0.00-0.30MerThe Christ Hospital HospitalComment on above:Performed By: #### BMPX, CDP #### [address] [place], [place] [address] Pool Nurse: Marylou Mart.Neutrophil (Seg)3.88 k/uLNormal1.50-8.10MerThe Christ Hospital HospitalComment on above:Performed By: #### BMPX, CDP #### [address] [place], [place] [address] Pool Nurse: Anusha Lea MDBasophils/100 WBC (Bld)0 %Normal0-2Mercy Arkoma HospitalComment on above:Performed By: #### BMPX, CDP #### [address] [place] [address] Pool Nurse: Anusha Lea MDEosinophils (Bld) [#/Vol]0.04 10*3/uLNormal 0.00-0.44[facility] HospitalComment on above:Performed By: #### BMPX, CDP #### [address] [place] [address] Pool Nurse: Anusha Lea MDEosinophils/100 WBC (Bld)1 %Normal1-4[facility] HospitalComment on above:Performed By: #### BMPX, CDP #### [address] [place], [place] [address] Pool Nurse: Anusha Lea MDImmature granulocytes/100 WBC (Bld)0 %Yfqjti4Fbelo Tiffin HospitalComment on above:Performed By: #### BMPX, CDP #### [address] [place], [facility]83 Pool Nurse: Anusha Lea MDLymphocytes (Bld) [#/Vol]0.44 10*3/uLLow1.10-3.70 [facility] HospitalComment on above:Performed By: #### BMPX, CDP #### [address] [place] [address] Pool Nurse: Lynne Mratmphocytes/100 WBC (Bld)10 %Kik54-27FrbgbGlenbeigh HospitalComment on above:Performed By: #### BMPX, CDP #### [address] [place] [address] Pool Nurse: ANNIE Martonocytes (Bld) [#/Vol]0.04 10*3/uLLow0.10-1.20 [facility]beigh HospitalCommclaren caro region on above:Performed By: #### BMPX, CDP #### [address] [place], [place] [address] Pool Nurse: ANNIE Martonocytes/100 WBC (Bld)1 %Low3-12Glenbeigh HospitalComment on above:Performed By: #### BMPX, CDP #### [facility] [address] [place] [address] Dr[place], [place] 9743583 Pool Nurse: ANNIE Martorphology Jeff (Bld) [Interp]NormalNormalThe [facility] HospitalComment on above:Performed By: #### BMPX, CDP #### [address] [place], [facility]83 Pool Nurse: Anusha Lea MDNeutrophil (Seg)88 %Usnb90-15ScveeGlenbeigh Hospital Comment on above:Performed By: #### BMPX, CDP #### [address] [place], [place] 7398683 Pool Nurse: Anusha Lea MDErythrocyte distribution width (RBC) [Ratio]14.0 % Tisged79.8-14.4[facility] HospitalComment on above:Performed By: #### BMPX, CDP #### [address] [place], [place] [address] Pool Nurse: Anusha Lea MDHematocrit (Bld) [Volume fraction]35.2 %Low 36.3-47.1MSouthwest General Health Center HospitalComment on above:Performed By: #### BMPX, CDP #### [address] [place], [place] [address]83 Pool Nurse: Anusha Lea MDHemoglobin (Bld) [Mass/Vol]11.2 g/dLLow11.9-15.1 [facility] HospitalComment on above:Performed By: #### BMPX, CDP #### [address] [place], [place] [address]83 Pool Nurse: ANNIE MratCH (RBC) [Entitic mass]28.4 hwFgmmnj95.2-33.5 [facility] HospitalComment on above:Performed By: #### BMPX, CDP #### [address] [place], [place] [address]83 Pool Nurse: CHANTE MartC (RBC) [Mass/Vol]31.8 g/lNDgqlws14.4-34.8[facility] HospitalComment on above:Performed By: #### BMPX, CDP #### [address] [place], [place] 3692183 Pool Nurse: ANNIE MartCV (RBC) [Entitic vol]89.3 yGMcfbvg58.6-102.9 [facility] HospitalComment on above:Performed By: #### BMPX, CDP #### [address] [place], [place] [address]83 Pool Nurse: AJ Mart Automated0.0 per 100 WBCNormal0.0[facility] HospitalComment on above:Performed By: #### BMPX, CDP #### [address] [place], [place] 4317483 Pool Nurse: Brad Mart mean volume (Bld) [Entitic vol]10.3 fL Normal8.1-13.5Glenbeigh HospitalComment on above:Performed By: #### BMPX, CDP #### [address] [place] [address] Pool Nurse: Avis Mart (Bld) [#/Vol]171 10*3/cBPwfggi074-497 [facility] HospitalComment on above:Performed By: #### BMPX, CDP #### [address] [place], [place] [address]4083 Pool Nurse: CONTRERAS MartBC (Bld) [#/Vol]3.94 10*6/uLLow3.95-5.11[facility] HospitalComment on above:Performed By: #### BMPX, CDP #### [facility] [address] [place], [place] 265[address] Pool Nurse: RAMBO Mart (d) [#/Vol]4.4 10*3/uLNormal3.5-11.3Mercy Sharon HospitalComment on above:Performed By: #### BMPX, CDP #### [facility] [address] [place] [address] Pool Nurse: Anusha Lea [facility] – POTEAUardiac echo study ProcedureOrdered By: Nelia Carlos on 00-49-1889Lpjukf Sinus Valsalva2.8 cmFeedgen Phone: Aortic Sinus Valsalva Index1.41 cm/m2Bon [employer] Phone: AV Cusp Mmode1.7 cmFeedgen Phone: AV Mean Fvyibtiv0klAgOna [employer] Phone: AV Mean Velocity1 m/sBon [employer] Phone: AV Peak Cpiynlkl9ctBdVnjFeedgen Phone: AV Peak Velocity1.5 m/sBon [employer] Phone: AV Velocity Ratio0.87Bon [employer] Phone: AV VTI33.4 cmBon [employer] Phone: Body surface area Derived from formula2.08 m2Bon [employer] Phone: E/E' Vmbgvpg12.84Bon [employer] Phone: [phone] BP62 %55 - 100 %[employer] Phone: EF Xybdhdvrm72 %[employer] Phone: Fractional Shortening 2D31 %28 - 44 %[employer] Phone: Interpretation and review of laboratory results AbnormalBon [employer] Work Phone: IVSd1.1 cmAbnormal0.6 - 0.9 cmAvenir Behavioral Health Center [facility] [employer] Work Phone: LA Area 2C16.9 cm2Bon [employer] Work Phone: LA Area 4C14.9 cm2Johnston Memorial HospitalLambda OpticalSystems Work Phone: LA Major Axis4.9 [facility] HospitalLambda OpticalSystems Work Phone: LA Minor Axis5 [facility] [employer] Work Phone: LA Volume BP41 mL22 - 52 mLAvenir Behavioral Health Center At [facility] [employer] Work Phone: LA Volume Index BP21 ml/m216 - 34 ml/m2[facility] [employer] Work Phone: [phone] Volume Index MOD A2C24 ml/m216 - 34 ml/m2[facility] [employer] Work Phone: [phone] Volume Index MOD A4C18 ml/m216 - 34 ml/m2[facility] [employer] Work Phone: LA Volume MOD A2C47 mL22 - 52 mLAvenir Behavioral Health Center [facility] [employer] Work Phone: LA Volume MOD A4C35 mL22 - 52 [facility] [employer] Work Phone: LV E' Lateral Velocity7.29 cm/sBon [facility] And Joint HospitalLambda OpticalSystems Work Phone: LV EDV A2C88 mLAvenir Behavioral Health Center [facility] [employer] Work Phone: LV EDV A4C73 mLAvenir Behavioral Health Center [facility] [employer] Work Phone: [phone] EDV Index A2C44 mL/m2[facility] [employer] Work Phone: LV EDV Index A4C37 mL/m2[facility] [employer] Work Phone: [phone] Ejection Fraction A2C63 %[facility] [employer] Work Phone: [phone] Ejection Fraction A4C55 %[facility] [employer] Work Phone: [phone] ESV A2C33 mLBon [employer] Work Phone: [phone] ESV A4C33 mLBon [employer] Work Phone: [phone] ESV Index A2C17 mL/m2Bon [employer] Work Phone: LV ESV Index A4C17 mL/m2Bon [employer] Work Phone: [phone] Mass 2D175 xZyogzuvn41 - 162 gBon [employer] Work Phone: LV Mass 2D Index87.9 g/m243 - 95 g/m2Bon [employer] Work Phone: LV RWT Ratio0.49Bon [employer] Phone: [phone] cm3.9 - 5.3 cmBon [employer] Work Phone: LVIDd Index2.26 cm/m2Bon [employer] Work Phone: [phone] cmBon [employer] Work Phone: LVIDs Index1.56 cm/m2Bon [employer] Work Phone: [phone] Mean Vxfgneng3qoAvXis [employer] Work Phone: LVOT Peak Wtzradst3zdSzPge [employer] Work Phone: LVOT Peak Velocity1.3 m/sBon [employer] Work Phone: LVOT VTI29.4 cmBon [employer] Work Phone: [phone]:AV VTI Index0.88Bon [employer] Work Phone: [phone] cmAbnormal0.6 - 0.9 cmAvenir Behavioral Health Center At Surprise [employer] Work Phone: MV A Velocity1 m/sBon [employer] Work Phone: MV E Velocity0.79 m/sBon [employer] Work Phone: MV E Wave Deceleration Roqs845 msBon [employer] Work Phone: [phone] E/A0.79Bon [employer] Work Phone: PV Max Velocity0.9 m/sBon [employer] Work Phone: PV Peak Bcdldosd9mzHyXic [employer] Work Phone: [phone] cm1.7 cmBon [employer] Work Phone: Bon [employer] Work Phone: Cardiac echo study Procedureon 52-38-1963Homh Ventricle: Normal left ventricular systolic function with a [...] Details Image quality: adequate. No contrast was given.[facility] CV CPACSRadiology Study observation (narrative)[facility] ApplyfulEKG 12 LeadOrdered By: Bonnie Dawkins on 68-98-8071Xeovoe Uahj52ZSHFpv [employer] Work Phone: P Otwn86lpnxeadOtb [employer] Work Phone: P-R Zmpgmfni886 [facility] [employer] Work Phone: Q-T Xtakpdcs916 [facility] [employer] Work Phone: QRS Qwoerndb007 [facility] [employer] Work Phone: QTc Calculation (Bazett)440 [facility] [employer] Work Phone: R [place]-63degrSelect Specialty Hospital [facility] [employer] Work Phone: T Vcal83shohfnrMch [employer] Work Phone: Ventricular Ioqb82TOCCun [employer] Work Phone: Bon [employer] Work [phone] 12 Leadon 75-67-7904Zkaya bradycardia Left axis deviation Non-specific intra-ventricular conduction block Cannot rule out Anterior infarct , age undetermined Abnormal ECG No previous ECGs available Confirmed by Bonnie Dawkins MD ([id number]) on 01/05/2025 10:57:39 [facility]FITZGIBBON [facility] Bonnie Dawkins MD - 01/05/2025 Sinus bradycardia Left axis deviation Non-specific intra-ventricular conduction block Cannot rule out Anterior infarct , age undetermined Abnormal ECG No previous ECGs available Confirmed by Bonnie Dawkins MD ([id number]) on 01/05/2025 10:57:39 AM [facility] HospitalEKG Rhythm Stripon 72-20-6595ANWLTCopper Springs East HospitalFLUORO FOR SURGICAL PROCEDURESon 94-58-0571EWOIIS FOR SURGICAL PROCEDURESRadiology exam is complete. No Radiologist dictation. Please follow up with ordering provider. Final resultNormalGlenbeigh HospitalGlucose, Whole Bloodon 20-07-9993Bglsbfr [Mass/Vol]136 mg/kECdpq51 - 100 mg/dLBon Secours Mercy HealthInterpretation and review of laboratory resultsAbnormalMountain States Health AllianceGlucose [Mass/Vol]136 mg/cRSnkw31-765LgkqmGlenbeigh HospitalGuidance-- during surgeryon 56-58-4452Rsqzyelss exam is complete. No Radiologist dictation. Please follow up with ordering provider. MHPN RIS CONSOLIDATEDMicroscopic Urinalysison 74-85-7845Ldabukardf cells LM.HPF (Urine sed) [#/Area]0 TO 2Bon [facility], IncRBC LM.HPF (Urine sed) [#/Area][facility] PatrickWBC LM.HPF (Urine sed) [#/Area][facility] HospitalUA w/Reflex Cultureon 01-05-2025 Bilirubin, SemiQt,UrNegativeNormalNEGGlenbeigh HospitalComment on above: Performed By: #### UAX UMSARAHO #### [facility] [facility] [address] [place] [address] [place] [address] Pool Nurse: Delroy Mart, UrineNegativeTwin City Hospital Comment on above:Performed By: #### UAX UMICAO #### [address] [place] [address] Pool Nurse: WILLIAM Martlarity ()ClearNormalCLEARGlenbeigh Hospital Comment on above:Performed By: #### UAX, UMICAO #### [facility] [address] [place] [address] [place] [address] Pool Nurse: WILLIAM Martolor (U)YellowNoalYSt. Mary's [facility] Comment on above:Performed By: #### UAX, UMICAO #### [facility] [address] [place] [address] [place] [address] Pool Nurse: Nydia Mart Ql (U)NegativeNormalTriHealth Bethesda North HospitalComment on above:Performed By: #### UAX, UMICAO #### [facility] [address] [place] [address] [place], [place] [id number] Pool Nurse: Anusha Lea MDKetones Ql (U)NegativeNormalNEGMerMidState Medical CenterComment on above:Performed By: #### UAX, UMICAO #### [facility] [address] [place] [address] [place] [address] Pool Nurse: Anusha Lea MDLeukocyte esterase Test strip Ql (U)NegativeNormal NEGMercy Sharon HospitalComment on above:Performed By: #### UAX, UMICAO #### [address] [place], [place] 9[address]83 Pool Nurse: Anusha Lea MDNitrite,UrNegativeNormalNEGGlenbeigh Hospital Comment on above:Performed By: #### UAX, UMICAO #### [facility] [address] [place] [address] [place], [place] [id number] Pool Nurse: SANDRA Mart,Ur7.6Ylraso1.0-9.0Glenbeigh HospitalComment on above:Performed By: #### MARVINX, UMICAO #### [facility] [address] [place] [address] [place] [address] Pool Nurse: Kristina Mart Ql (U)NegativeNormalNEGGlenbeigh HospitalComment on above:Performed By: #### UAX, UMICAO #### [facility] [address] [place] [address] [place], [place] [id number] Pool Nurse: ELSIE Martpec. Moore,Ur<1.259Dpy5.010-1.020Glenbeigh HospitalComment on above:Performed By: #### UAX, UMICAO #### [facility] [address] [place] [address] [place], [place] [id number] Pool Nurse: Amy Martbilinogen,UrNormalNormal0.0-1.0Glenbeigh HospitalComment on above:Performed By: #### UAXSHITALO #### [facility] [address] [place] [address] Pool Nurse: Anusha Lea MDUrinalysis with Reflex to Cultureon 01-05-2025 Bilirubin Ql (U)NegativeNEGATIVEBon [facility] HealthClarity (U)ClearClearBon [facility] HealthColor (U)YellowYellowBon [facility], IncGlucose Test strip (U) [Mass/Vol]NegativeNEGATIVE mg/dLBon [facility], IncHemoglobin Auto test strip Ql (U)NegativeNEGATIVEBon [facility] HealthInterpretation and review of laboratory resultsAbnormalBon [facility], IncKetones (U) [Mass/Vol]NegativeNEGATIVE mg/dLBon [facility], IncLeukocyte esterase Test strip Ql (U)NegativeNEGATIVEBon [facility], IncNitrite Ql (U)Negative NEGATIVEBon [facility] HealthpH (U)7.5 [pH]5.0 - 9.0Bon [facility] Protein (U) [Mass/Vol]NegativeNEGATIVE mg/dLBon [facility] HealthSpecific gravity (U) [Rel density]Low1.010 - 1.020Bon [facility], IncUrobilinogen Qn (U)Normal0.0 - 1.0 EU/dLBon [facility] Urinalysis,Microon 96-06-4735Rbneiziezc cells LM Ql (Urine sed)0 TO 6Lzbnai2-91 Glenbeigh HospitalComment on above:Performed By: #### UAXSHITALO #### [facility] [address] [place] [address] Pool Nurse: Selam Mart RBC'sNoneNormal0-2MMcKitrick Hospital Comment on above:Performed By: #### SHITAL DEMARCOO #### [facility] [address] [place] [address] Pool Nurse: Selam Mart WBC'[address] Comment on above:Performed By: #### UAX, [facility] #### [facility] [address] [place], [place] [id number] Pool Nurse: CAMILLE MartR CHEST (2 VW)on 50-49-0002AM CHEST (2 VW) EXAMINATION: TWO XRAY VIEWS [...] Signed by: Lucila Westfall MD 01/05/25 Final resultNoWVUMedicine [facility] Chest 2 Viewson 05-88-1732Fl acute process. [facility] CONSOLIDATEDEXAMINATION: TWO XRAY VIEWS OF THE CHEST 01/05/2025 1:51 pm COMPARISON: None. HISTORY: ORDERING SYSTEM PROVIDED HISTORY: hypotension TECHNOLOGIST PROVIDED HISTORY: hypotension FINDINGS: The lungs are without acute focal process. There is no effusion or pneumothorax. The cardiomediastinal silhouette is without acute process. The osseous structures are without acute process. [facility] Lucila Villegas MD - 01/05/2025 EXAMINATION: TWO XRAY VIEWS OF THE CHEST 01/05/2025 1:51 pm COMPARISON: None. HISTORY: ORDERING SYSTEM PROVIDED HISTORY: hypotension TECHNOLOGIST PROVIDED HISTORY: hypotension FINDINGS: The lungs are without acute focal process. There is no effusion or pneumothorax. The cardiomediastinal silhouette is without acute process. The osseous structures are without acute process. IMPRESSION: No acute process. [facility] HospitalRadiology Study observation (narrative)[facility] Chest 2 ViewsOrdered By: Lucila Westfall on 50-22-7539Vvx [facility] Work Phone: Cult,Aerobe/Anaerobeon 13-95-1007Vwnf,Aerobe/Anaerobe Specimen Description .JOINT FLUID .KNEE LEFT 6.8mL Special Requests .JOINT FLUID .KNEE LEFT Direct Exam FEW NEUTROPHILS NO ORGANISMS SEEN Culture NO GROWTH 5 DAYS Report Status FINAL 11/19/2024NoSumma Health Akron CampusComment on above: Performed By: #### AANC #### [facility] [address] [place] [address] Pool Nurse: Rocco Salas MD [address] [place], [place] [address] Pool Nurse: Romana Martals, Fluidson 12-44-4559Wqggicjw,Fluid NegativeNormalTriHealth Bethesda North HospitalComment on above:Result Comment: NO CRYSTALS SEENPerformed By: #### FLCRYS #### [facility] [address] [place] [address] Pool Nurse: Rocco Salas MD [address] [place] [address] Pool Nurse: Anusha Lea MD #### FLDCT #### [address] [place] 6211083 Pool Nurse: Anusha Lea [facility]MONTGOMERYathologist Review:ELECTRONICALLY SIGNED. DORIS ALDRICH M.D.Day[facility] Children's HospitalComment on above:Performed By: #### FLCRYS #### [place] [address] [place] [address] Pool Nurse: Rocco Salas MD [address] [place] [address] Pool Nurse: Anusha Lea MD #### FLDCT #### [address] [place] [address]211083 Pool Nurse: WILLIAM Martell Count with Differential, Body Fluidon 20-53-6555Jhhcutjzwa (Body fld)SLIGHTLY CLOUDYBon [facility] HealthBlasts/100 WBC (Body fld)0 %[facility] HealthCells Knnjbsv66Fwh [facility] Color (Body fld)YellowBon [facility], IncEosinophils/100 WBC (Body fld)0 % Bon [facility], IncFluid Nom (Body fld).JOINT FLUIDBon [facility] Interpretation and review of laboratory resultsAbnormalBon [facility] Lymphocytes/100 WBC (Body fld)72 %Bqfv6Pif [facility], IncMonocytes/100 WBC (Body fld)0 %Bon [facility], IncNeutrophils/100 WBC (Body fld)28 %Fyng2Hza [facility], IncRBC (Body fld) [#/Vol]8000 10*3/uLcells/uLBon [facility], IncUnidentified cells/100 WBC (Body fld)0 %Bon [facility], IncWBC (Body fld) [#/Vol]156 10*3/uLcells/uLBon [facility] Fluid Cell Count and Diffon 42-45-0370RanmwpaxgXefblf4Zgdkg[address] Comment on above:Performed By: #### FLCRYS #### [address] [address] Pool Nurse: Rocco Salas MD [facility] [address] [place] [address] Dr[place] [id number] Pool Nurse: Anusha Lea MD #### FLDCT #### [address] [place] [address] Pool Nurse: Anusha Lea MDPLStavbtmvimrPwsloj4Hbgyp06 Reyes StreetComment on above:Performed By: #### FLCRYS #### [address] [address] Pool Nurse: Rocco Salas MD [facility] [address] [place] [address] [place] [address] Pool Nurse: Anusha Lea MD #### FLDCT #### [facility] [address] [place] [address] [place] [address] Pool Nurse: Anusha Lea MDLymphocytes/100 WBC (Bld)72 %Amzp6GwcjbGlenbeigh HospitalComment on above:Performed By: #### FLCRYS #### [facility] [address] [place] [address] Pool Nurse: Rocco Salas MD [address] [place] [address] Pool Nurse: Anusha Lea MD #### FLDCT #### [address] [place] [address] Pool Nurse: ANNIE Martono/CcwukporrmSvppci9Buzsq Tiffin HospitalComment on above:Performed By: #### FLCRYS #### [facility] [address] [place] [address] Pool Nurse: Rocco Salas MD [address] [place] [address] Pool Nurse: Anusha Lea MD #### FLDCT #### [address] [place] [address] Pool Nurse: Anusha Lea MDNeutrophils/100 WBC (Bld)28 %Wliq4SiushGlenbeigh HospitalCommclaren caro region on above:Performed By: #### FLCRYS #### [address] [address] Pool Nurse: Rocco Salas MD [address] [place] [address] Pool Nurse: Anusha Lea MD #### FLDCT #### [address] [place] [address] Pool Nurse: Anusha Lea MDOther MmbtbZzluly1Vfxxw91 Cook StreetComment on above:Performed By: #### FLCRYS #### [facility] [address] [place] [address] Pool Nurse: Rocco Salas MD [facility] [address] [place] [address] [place] [address] Pool Nurse: Anusha Lea MD #### FLDCT #### [address] [place] [address] Pool Nurse: Charles Marttal Cells Htwdzge61JarbxgVreee[address] [place] [address] Comment on above:Performed By: #### FLCRYS #### [facility] [address] [place] [address] Pool Nurse: Rocco Salas MD [facility] [address] [place] [address] [place] [address] Pool Nurse: Anusha Lea MD #### FLDCT #### [address] [place] [address] Pool Nurse: Herrera Mart (U)[facility] HeartComment on above:Performed By: #### FLCRYS #### [facility] [address] [place] [address] Pool Nurse: Rocco Salas MD [facility] [address] [place] [address] [place] [address] Pool Nurse: Anusha Lea MD #### FLDCT #### [facility] [address] [place] [address] [place] [address] Pool Nurse: Betsy Mart (U)[facility] HospitalComment on above:Performed By: #### FLCRYS #### [facility] [address] [place] [address] Pool Nurse: Rocco Salas MD [facility] [address] [place] [address] [place] [address] Pool Nurse: Anusha Lea MD #### FLDCT #### [facility] [address] [place] [address] [place] [address] Pool Nurse: CLIFFORD Mart (Bld) [#/Vol]0.008 10*6/[facility], MD, Cancer CenterComment on above:Performed By: #### FLCRYS #### [facility] [address] [place] [address] Pool Nurse: Rocco Salas MD [address] [place] [address] Pool Nurse: Anusha Lea MD #### FLDCT #### [address] [place] [address] Pool Nurse: Anusha Lea MDBUFFALO PSYCHIATRIC CENTER (Bld) [#/Vol]0.156 10*3/[facility] Bing, MD, Cancer CenterComment on above:Performed By: #### FLCRYS #### [facility] [address] [place] [address] Pool Nurse: Rocco Salas MD [address] [place] [address] Pool Nurse: Anusha Lea MD #### FLDCT #### [address] [place] [address] Pool Nurse: Anusha Lea MDType of Specimen.[facility] Geriatric Psychiatry CenterComment on above:Performed By: #### FLCRYS #### [facility] [address] [place] [address] Pool Nurse: Rocco Salas MD [facility] [address] [place] [address] [place] [address] Pool Nurse: Anusha Lea MD #### FLDCT #### [address] [place] [address] Pool Nurse: Anusha Lea MD07 Addendum Reporton Addendum Report [facility] [address] [place] [address]- Surgical Pathology Report Collected Date/Time: 06/01/2024 12:32 EDT Pathologist: Mitesh Muro MD Received Date/Time: 06/02/2024 09:06 EDT Silvestre Bejarano MD, Glen Bejarano MD, Glen Ta 07 Addendum Report - 06/09/2024 14:07 EDT - Auth (Verified) Addendum IHC stains are negative for Helicobacter pylori. Appropriate reactive controls are performed and reviewed (Electronic Signature) Adilson Juarez MD 06/09/2024 14:07 Addendum Reason H [...] examined esophagus. Empiric dilation with Delcid 54 Rwandan was done, no mucosal disruption was noted [...] is entirely submitted in one cassette. (DC) DC:[facility] Microscopic Description Microscopic examination performed unless gross only specified. The use of one or more reagents in the above tests is regulated as an analyte specific reagent (ASR). The test or tests are ordered following initial H&E microscopic examination. The performance characteristics were determined by the [facility] of [facility]. They have not been cleared or approved by the US Food and Drug Administration. The FDA has determined that such clearance or approval is not necessary. These tests are used for clinical purposes. They should not be regarded as investigational or for research. Appropriate positive and negative controls are performed and are acceptable. [facility] HospitalComment on above:Performed By: #### [id number] #### [facility] [address] [place] [address]Iuinuwq Letter FTon 79-32-1303Xrrfnwm Letter FTPatient Letter FT June 06, 2024 R[address] PADRON [address] [place] [id number] : 1955 Below is a summary of [...] if you wish to make an appointment. [facility] [phone] Fostoria Community Hospital 23-98-4077Krrrpuphe Reminders From: Lisa Cunningham I To: [facility] - Reminders/Recalls; Sent: 06/06/2024 10:26:14 EDT Show up: 03/19/2034 10:26:00 EDT Subject: Colonoscopy recall Reminder/Recall [address] Bejarano 06/01/2034NoSelect Medical [facility] Shawurgical Pathology Reporton 06-03-2024 Surgical Pathology ReportFish - [address] [place] [address]- Surgical Pathology Report Collected Date/Time: 06/01/2024 12:32 [...] examined esophagus. Empiric dilation with Delcid 54 Rwandan was done, no mucosal disruption was noted [...] is entirely submitted in one cassette. (DC) DC:[facility] Microscopic Description Microscopic examination performed unless gross only specified. The use of one or more reagents in the above tests is regulated as an analyte specific reagent (ASR). The test or tests are ordered following initial H&E microscopic examination. The performance characteristics were determined by the [facility]. They have not been cleared or approved by the [place] Food and Drug Administration. The FDA has determined that such clearance or approval is not necessary. These tests are used for clinical purposes. They should not be regarded as investigational or for research. Appropriate positive and negative controls are performed and are acceptable. [facility] HospitalComment on above:Performed By: #### [id number] #### [facility] [address] [place], [place] [address]Kpmo OR Intraoperative Recordon [id number] OR Intraoperative RecordMain OR Intraoperative Record IntraOp Document Type FT Summary Primary Physician: Glen Bejarano MD Finalized Date/Time: 06/02/24 08:36:22 Pt. Name: RENUKA PADRON/Sex: 1955 Female Med Rec #: [id number] Physician: Glen Bejarano MD Financial #: [id number] Pt. Type: O Room/Bed: / Admit/Disch: 06/01/24 [...] RN, Margarette Blackwell Role Performed Anesthesiologist of Operations Liaison - Primary Scrub - Primary Record Time In 06/01/24 12:25:00 06/01/24 12:25:00 06/01/24 12:25:00 Time Out 06/01/24 13:09:00 06/01/24 13:09:00 06/01/24 13:09:00 Procedure EGD AND COLONOSCOPY(.) EGD AND COLONOSCOPY(.) EGD AND COLONOSCOPY(.) Comments Last Modified By: Kami RN, Vitaliy Mcclure RN, Vitaliy Elise RN 06/01/24 13:16:18 06/01/24 13:16:18 06/01/24 13:16:18 Entry 4 Entry 5 Case Attendee Phil HSIEH, Jacqueline Bejarano MD, Glen Ta Role Performed Staff - Other Surgeon - Primary Time In 06/01/24 12:35:00 06/01/24 12:25:00 Time Out 06/01/24 13:09:00 06/01/24 13:09:00 Procedure EGD AND COLONOSCOPY(.) EGD AND COLONOSCOPY(.) Comments help in room Last Modified By: Kami RN, Vitaliy Elise RN 06/01/24 13:16:18 06/01/24 13:16:18 Perioperative Protocols FT [...] additional precautions for proce (more content not included)...[facility] HospitalDischarge Instructionson [id number] InstructionsDischarge Instructions RENUKA PADRON :1955 Visit Date:06/01/2024 Inpatient Discharge Instructions Your [...] sulfate fluticasone nasal (fluticasone 0.05 mg/inh Nasal [place]) gabapentin (gabapentin 300 mg Cap) hydrOXYzine magnesium [...] Follow Up with Darci BRYANT, KLAUS Parsons, [facility] When: Comments: Call for any problems. Office to call for follow up appointment. Where: [address] [place] [address], [address] [phone] Medications What How Much When Instructions Next [...] fluticasone nasal (fluticasone 0.05 mg/ inh Nasal [place]) 2 Sprays Nasal Inhalation Every day Unchanged [...] this sheet in the (more content not included)...[facility] HospitalComment on above:Result Comment: Electronically Signed By: Oliver REYNA, Sharon Goldman\.br\Date and Time Signed: 06/01/24 13:15 EDTInpatient Patient Summaryon 75-24-2948Lfvvxykki Patient SummaryInpatient Patient Summary [place] [phone] [facility] Clinical Discharge Instructions PERSON INFORMATION Name: RENUKA PADRON PHYSICIANS Admitting Physician: Glen Bejarano MD Attending [...] day. fluticasone nasal (fluticasone 0.05 mg/inh Nasal [place]) 2 Sprays Nasal Inhalation every day. hydrOXYzine [...] MOUTH ONCE DAILY., Responsible Provider: PETER SOSA Comment:[facility] HospitalMain OR PACU I Recordon [id number] OR PACU I RecordMain OR PACU I Record PACU Phase I Document Type FT Summary Primary Physician: Glen Bejarano MD Finalized Date/Time: 06/01/24 13:51:48 Pt. Name: NEREIDA RENUKAPAYAL Dunn D.O.B./Sex: 1955 Female Med Rec #: [id number] Physician: Glen Bejarano MD Financial #: [id number] Pt. Type: O Room/Bed: / Admit/Disch: 06/01/24 [...] Outcomes Met? Yes Last Modified By: Oliver REYNA, Sharon Goldman 06/01/24 13:51:33 Post-Care Text: The patient demonstrates knowledge of the expected response to the operative or invasive procedure The patient's care is consistent with the individualized perioperative plan of care The patient's rightto privacy is maintained The patient's value system, [...] with or improved from baseline levels established preoperativelyThe patient's cardiovascular status is consistent with or improved from baseline levels established preoperatively The patient's cardiovascular status is consistent with or improved from baseline levels established preoperatively The patient demonstrates and/or reports adequate pain control throughout the perioperative period The patient received appropriate medication(s), safely administered during the perioperativeperiod Acuity Level PACU I FT Entry 1 Start Time 06/01/24 13:10:00 Stop Time 06/01/24 13:40:00 Acuity Level Acuity Level I Last Modified By: Sharon Boyd RN 06/01/24 13:51:45 Finalized By: Sharon Boyd RN Document Signatures Signed By: Sharon Boyd RN 06/01/24 13:51NoCleveland Clinic Medina HospitalMain OR Preoperative Recordon [id number] OR Preoperative RecordMain OR Preoperative Record Holding Area Document Type FT Summary Primary Physician: Glen Bejarano MD Finalized Date/Time: 06/01/24 11:20:31 Pt. Name: RENUKA PADRON/Sex: 1955 Female Med Rec #: [id number] Physician: Glen Bejarano MD Financial #: [id number] Pt. Type: O Room/Bed: / Admit/Disch: 06/01/24 [...] or her perioperative plan of care The patient'sright to privacy is maintained Surgery Checklist FT [...] Signatures Signed By: Vitaliy Mcclure RN 06/01/24 11:20[facility] HospitalOutpatient Surgery Discharge Instructionon 10-37-3326Zenwvuwdsz Surgery Discharge InstructionOutpatient Surgery Discharge Instruction [place] [address] Patient Discharge Instructions PERSON INFORMATION Name: RENUKA PADRON Date of : 1955 Current Date: 06/01/2024 12:24:29 PHYSICIANS Admitting Physician: Glen Bejarano MD Discharge Diagnosis: Colon polyps; Dysphagia RENUKA PADRON has been given the following list of [...] THE NEAREST EMERGENCY ROOM OR CALL 911 INEREIDA SUSAN L, have received the attached patient education materials/instructions and have verbalized understanding: May we do a follow up call? Yes No I was present when discharge instructions were given Patient Signature Date Clinican/Nurse Signature Date Follow up: Pharmacy Information: You may receive a survey from [employer] asking you to rate your care experience. Your feedback is important and will help us understand what we do well and how we can improve the quality of care we provide to you, your loved ones and our community. It?s an honor to serve you. Thank you for choosing [facility] HERE ARE THE MEDICATION CHANGES THAT [...] day. fluticasone nasal (fluticasone 0.05 mg/inh Nasal [place]) 2 Sprays Nasal Inhalation every day. hydrOXYzine [...] PETER SOSA PATIENT EDUCATION INFORMATION Instructions: Medication Leaflets:[facility] HospitalBacteria Spec Anaerobe Cult on 57-65-3949Xbzlehkr identified Anaer cx Nom (Unsp spec)Culture, Anaerobic Status = F No anaerobes grown after 4 days.NormalNvunt [facility] on above: Performed By: #### [id number] #### [facility] LAB [address] [place], [place] [address]Terltqui Spec BFld Culton 27-54-4380Bqzhvkcc identified Sterile body fluid culture Nom (Unsp spec)Fluid Culture Status = F No growth at [...] been appended to a previously preliminary verified report.NormalNvunt [facility] on above: Performed By: #### 636-1 #### [facility] [address] [place], [place] [address]Grxaodkg identified Anaer cx Nom (Unsp spec)Ordered By: Kaur Pierre on 83-67-6066Kqkdfazh Spec Anaerobe CultCulture, Anaerobic Status = F No anaerobes grown after 4 days.[facility]oAlliance of OhioBacteria identified Sterile body fluid culture Nom (Unsp spec)Ordered By: Kaur Pierre on 05-25-2024 Bacteria Spec BFld CultFluid Culture Status = F No growth at 3 daysOrthoAlliance of OhioBacteria Spec BFld CultGram Stain Result Status = F No Polymorphonuclear leukocytesOrthoAlliance of OhioBacteria Spec BFld CultThis is an appended report. These results have been appended to a previously preliminary verified report.[facility] of OhioBacteria Spec BFld CultNo Epithelial cellsOrthoAlliance of OhioBacteria Spec BFld CultNo organisms seen [facility]Alliance of OhioCell count panel (Body fld)on 75-45-5832Onypk Basophils1.0 %[facility] on above:Order Comment: The reference range and other method performance specifications have not been established for this fluid specimen. The test result should be integrated into the clinical context for interpretation.Performed By: #### [id number] #### [facility] [address] [place] [address]Yvkdm Kmtfbsibqlx83.0 %NormalMount Gold Creek New AlbanyComment on above:Order Comment: The reference range and other method performance specifications have not been established for this fluid specimen. The test result should be integrated into the clinical context for interpretation. Performed By: #### 99558-4 #### [facility] [address] [place] [address] 25633Bufbv Lymphocytes3.0 %NormalMount Gold Creek New Albatrium health waxhawComment on above:Order Comment: The reference range and other method performance specifications have not been established for this fluid specimen. The test result should be integrated into the clinical context for interpretation. Performed By: #### 75603-8 #### [facility] [address] [place] [address] 30638Jozgz Monocytes/Macrophages9.0 %NormalMount Sparrow Ionia HospitalCommclaren caro region on above:Order Comment: The reference range and other method performance specifications have not been established for this fluid specimen. The test result should be integrated into the clinical context for int erpretation.Performed By: #### 27334-3 #### [facility] [address] [place] [address] 77406Sxvdn Rnuufqsbxor65.0 %NormalMount Sparrow Ionia HospitalCommclaren caro region on above:Order Comment: The reference range and other method performance specifications have not been established for this fluid specimen. The test result should be integrated into the clinical context for interpretation. Performed By: #### 77211-2 #### [facility] [address] [place] [address] 91788Injj count panel (Body fld)Ordered By: Kaur Pierre on 00-37-0408Dbmu Cnt Pnl FldKneeOrthoAlliance of OhioCell Cnt Pnl FldCloudy OrthoAlliance of OhioCell Cnt Pnl FldRedOrthoAlliance of OhioCell Cnt Pnl Fld [id number] /gh5EcpfvXtwwuqhp of OhioComment on above:The reference range and other method performance specifications have not been established for this fluid specimen. The test result should be integrated into the clinical context for interpretation.Cell Cnt Pnl Uwc861 /xa3ZqrkhElfxbybt of OhioComment on above:The reference range and other method performance specifications have not been established for this fluid specimen. The test result should be integrated into the clinical context for interpretation.Differential panel (Body fld)Ordered By: Kaur Pierre on 42-95-2119Zlmh Pnl Fld76.0 %OrthoAlliance of OhioDiff Pnl Fld 3.0 %OrthoAlliance of OhioDiff Pnl Fld9.0 %OrthoAlliance of OhioDiff Pnl Fld11.0 %OrthoAlliance of OhioDiff Pnl Fld1.0 %OrthoAlliance of OhioFungus Skin Culton 46-75-7747Orkueo identified Cx Nom (Skin)Culture, Fungus Status = F No growth at 4 weeksNormalMount Walter P[facility] on above:Performed By: #### 575-1 #### [facility] [address] [place], [place] [address]Jgwtvi identified Cx Nom (Skin)Ordered By: Kaur Pierre on 27-13-1049Hudmko Skin CultCulture, Fungus Status = F No growth at 4 weeksOrthoAlliance of OhioMycobacterium Spec Ql Culton 05-25-2024 Mycobacterium sp Org specific cx Ql (Unsp spec)Culture AFB Status = F No growth at 8 weeks AFB Stain Status = F No acid fast bacilli seenNormalMount Walter P. [facility] on above:Performed By: #### 82939-7 #### [facility] [address] [place], [place] [address]Crdozefbzw Visit Summaryon 02-24-9372Nlcehoefxi Visit Summary RENUKA PADRON :1955 Visit Date:03/28/2024 Ambulatory Visit Instructions Your Diagnosis Diverticular disease Dysphagia History of gastric bypass Obesity CHF (congestive heart failure) COPD type B Colon polyps Your Care Team Attending Physician - Darci BRYANT, [place] Primary Care Physician - PETER SOSA DO [...] sulfate fluticasone nasal (fluticasone 0.05 mg/inh Nasal [place]) gabapentin (gabapentin 300 mg Cap) hydrOXYzine midodrine (midodrine 2.5 mg oral tablet) ondansetron (ondansetron 4 mg Tab) pantoprazole phentermine (phentermine 37.5 mg Tab) polycarbophil (Fiber Tabs) sucralfate (Carafate 1 gram Tab) temazepam tizanidine topiramate (topiramate 25 mg Tab) Procedures Performed EGD (esophagogastroduodenoscopic) electrohydraulic lithotripsy of bezoar in [...] delayed release capsule) 1 Unknown, 0 Refill(s) Contactprescribing physician if questions or concerns Unchanged ferrous sulfate 2,000 Milligram By Mouth 2 times a day Contact prescribing physician if questions or concerns Unchanged fluticasone nasal (fluticasone 0.05 mg/ inh Nasal [place]) 2 Sprays Nasal Inhalation Every day Contact [...] or concerns Unchanged topiram (more content not included)...[facility] RENUKA PADRON :1955 Visit Date:03/28/2024 Ambulatory Visit Instructions Your [...] sulfate fluticasone nasal (fluticasone 0.05 mg/inh Nasal [place]) gabapentin (gabapentin 300 mg Cap) hydrOXYzine midodrine (midodrine 2.5 mg oral tablet) ondansetron (ondansetron 4 mg Tab) pantoprazole phentermine (phentermine 37.5 mg Tab) polycarbophil (Fiber Tabs) sucralfate (Carafate 1 gram Tab) temazepam tizanidine topiramate (topiramate 25 mg Tab) Procedures Performed EGD (esophagogastroduodenoscopic) electrohydraulic lithotripsy of bezoar in [...] delayed release capsule) 1 Unknown, 0 Refill(s) Contactprescribing physician if questions or concerns Unchanged ferrous sulfate 2,000 Milligram By Mouth 2 times a day Contact prescribing physician if questions or concerns Unchanged fluticasone nasal (fluticasone 0.05 mg/ inh Nasal [place]) 2 Sprays Nasal Inhalation Every day Contact [...] or concerns Unchanged topiram (more content not included)...[facility] HospitalConsent for Procedure/Surgeryon 97-12-6603Kxcekea for Procedure/Surgery [id number]#1.00TIFFNoalUniversity Hospitals Parma Medical CenterGastroenterology Office/Clinic Noteon 87-02-4553Nybsxpqtuxxrmuhq Office/Clinic NoteChief Complaint Dysphagia HPI Staff Patient is a [...] (K57.90: Diverticulosis of intestine, part unspecified, without perforationor abscess without bleeding) Ordered: Colonoscopy (Hospital Procedure) Colonoscopy (Hospital Procedure) E&M of New Patient High 60-74 Min 35110 E&M of New Patient Moderate 45-59 Min 95923 EGD Endoscopy (Hospital Procedure) EGD Endoscopy (Hospital Procedure) 2. Dysphagia (R13.10: Dysphagia, unspecified) to solids, has to use water, occasionally (worst sandwich, meat..) no previous dilation EGD with dilation if fails--> manometry Ordered: Colonoscopy (Hospital Procedure) Colonoscopy (Hospital Procedure) E&M of New Patient High 60-74 Min 30874 E&M of New Patient Moderate 45-59 Min 68299 EGD Endoscopy (Hospital Procedure) EGD Endoscopy (Hospital Procedure) 3. History of gastric bypass (Z98.84: Bariatric surgery status) 1984 Ordered: Colonoscopy (Hospital Procedure) E&M of New Patient High 60-74 Min 06699 E&M of New Patient Moderate 45-59 Min 08851 EGD Endoscopy (Hospital Procedure) 4. Obesity (E66.9: Obesity, unspecified) Ordered: Colonoscopy (Hospital Procedure) E&M of New Patient High 60-74 Min 15989 E&M of New Patient Moderate 45-59 Min 15076 EGD Endoscopy (Hospital Procedure) 5. CHF (congestive heart failure) (I50.9: Heart failure, unspecified) Ordered: Colonoscopy (Hospital Procedure) E&M of New Patient High 60-74 Min 29412 E&M of New Patient Moderate 45-59 Min 31243 EGD Endoscopy (Hospital Procedure) 6. COPD type [...] Historical No qualifying data Procedure/Surgical History EGD (esophagogastroduodenoscopic) electrohydraulic lithotripsy of bezoar [...] tab, Oral, Daily fluticasone 0.05 mg/inh Nasal [place], 2 spray(s), Nasal, Daily gabapentin 300 mg [...] Patient was adopted F[place] (more content not included)...[facility] HospitalComment on above:Result Comment: Electronically Signed By: Darci BRYANT, Glen Ta\.br\Date and Time Signed: 03/28/24 10:48 EDTCT Neck WO contraston 65-26-1410[address] [address] [address] Scan Report Signed Patient: RENUKA PADRON MR#: [id number] : 1955 Acct:[id number] Age/Sex: 68 / F ADM Date: 02/12/24 Loc: CT Attending Dr: Leah Barrera M.D. Ordering Physician: Leah Barrera M.D. Date of Service: 02/12/24 Procedure(s): CT soft tissue neck wo con Accession Number(s): [id number] cc: PETER SOSA D.O. [place] [id number] Patient Name: RENUKA PADRON MRN: [id number] date: 1955 Sex: F Assigned Patient Location: CT Current Patient Location: CT Accession/Order Number: [id number] Exam Date: 02/12/2024 08:58 Report Date: 02/12/2024 14:42 At the request of: LEAH BARRERA Procedure: CT soft tissue neck wo con EXAM: CT soft tissue neck wo con HISTORY: Lymphadenopathy Of Left Cervical Region R59.0 COMPARISON: Thyroid ultrasound 02/06/2024. TECHNIQUE: Axial noncontrast CT imaging of the neck soft tissues was performed with coronal and sagittal reformats. This CT exam was performed using one or more of the following dose reduction techniques: Automated exposure control, adjustment of the MA and/or kV according to patient size, or use of iterative reconstruction technique. FINDINGS: Skull base/intracranial: Intracranial atherosclerosis. The visualized portions of the intracranial structures are otherwise unremarkable. Paranasal sinuses are clear. Mastoid and middle ears are well aerated. Visualized portions of the orbits are unremarkable. Neck soft tissues: Evaluation of the oral cavity and facial soft tissues is degraded by streak artifact from dental amalgam. The oropharynx, hypopharynx and glottis demonstrate no significant abnormality. The submandibular glands and parotid glands demonstrate normal CT appearance. Mildly heterogeneous appearance of the thyroid with active internal right thyroid nodules better evaluated on recent ultrasound. Lymph nodes: The previously described borderline enlarged lymph nodes along the left jugulodigastric chain measures 8 mm in short axis diameter with mildly elongated craniocaudal appearance. This is otherwise morphologically normal. No technically enlarged or morphologically abnormal-appearing lymph nodes are seen. Vasculature: Minimal atherosclerotic change. Musculoskeletal: No significant spinal canal or neural foraminal narrowing. No destructive osseous lesions are identified. Upper thorax: The visualized portions of the lungs are clear. CT/CT soft tissue neck wo con IMPRESSION: No technically enlarged or morphologically abnormal lymph nodes. Electronically authenticated by: SHEILA ALBERTO Date: 02/12/2024 14:42 Dictated By: Sheila Alberto M.D. Signed By: 02/12/24 1445 DD/ 41 TD/TT: Technician Plant And Maintenance:TBHRadiology, Radiologist, MD - 02/12/2024 [place] [address] CT Scan Report Signed Patient: RENUKA PADRON MR#: [id number] : 1955 Acct:[id number] Age/Sex: 68 / F ADM Date: 02/12/24 Loc: CT Attending Dr: Leah Barrera M.D. Ordering Physician: Leah Barrera M.D. Date of Service: 02/12/24 Procedure(s): CT soft tissue neck wo con Accession Number(s): [id number] cc: PETER SOSA D.O. The [place] [id number] Patient Name: RENUKA PADRON MRN: [id number] date: 1955 Sex: F Assigned Patient Location: CT Current Patient Location: CT Accession/Order Number: [id number] Exam Date: 02/12/2024 08:58 Report Date: 02/12/2024 14:42 At the request of: LEAH BARRERA Procedure: CT soft tissue neck wo con EXAM: CT soft tissue neck wo con HISTORY: Lymphadenopathy Of Left Cervical Region R59.0 COMPARISON: Thyroid ultrasound 02/06/2024. TECHNIQUE: Axial noncontrast CT imaging of the neck soft tissues was performed with coronal and sagittal reformats. This CT exam was performed using one or more of the following dose reduction techniques: Automated exposure control, adjustment of the MA and/or kV according to patient size, or use of iterative reconstruction technique. FINDINGS: Skull base/intracranial: Intracranial atherosclerosis. The visualized portions of the intracranial structures are otherwise unremarkable. Paranasal sinuses are clear. Mastoid and middle ears are well aerated. Visualized portions of the orbits are unremarkable. Neck soft tissues: Evaluation of the oral cavity and facial soft tissues is degraded by streak artifact from dental amalgam. The oropharynx, hypopharynx and glottis demonstrate no significant abnormality. The submandibular glands and parotid glands demonstrate normal CT appearance. Mildly heterogeneous appearance of the thyroid with active internal right thyroid nodules better evaluated on recent ultrasound. Lymph nodes: The previously described borderline enlarged lymph nodes along the left jugulodigastric chain measures 8 mm in short axis diameter with mildly elongated craniocaudal appearance. This is otherwise morphologically normal. No technically enlarged or morphologically abnormal-appearing lymph nodes are seen. Vasculature: Minimal atherosclerotic change. Musculoskeletal: No significant spinal canal or neural foraminal narrowing. No destructive osseous lesions are identified. Upper thorax: The visualized portions of the lungs are clear. CT/CT soft tissue neck wo con IMPRESSION: No technically enlarged or morphologically abnormal lymph nodes. Electronically authenticated by: SHEILA ALBERTO Date: 02/12/2024 14:42 Dictated By: Sheila Alberto M.D. Signed By: 02/12/24 144 DD/ 41 TD/TT: Technician Plant And Maintenance: DEB HealthcareRadiology Study observation (narrative)[facility] HealthcareCT Neck WO contrastOrdered By: Radiologist Radiology on 81-59-4302IASV Healthcare Work Phone: US Thyroid glandon [phone] [address] Ultrasound Report Signed Patient: RENUKA PADRON MR#: [id number] : 1955 Acct:[id number] Age/Sex: 68 / F ADM Date: 01/27/24 Loc: US Attending Dr: Leah Barrera M.D. Ordering Physician: Leah Barrera M.D. Date of Service: 01/27/24 Procedure(s): US thyroid Accession Number(s): [id number] cc: PETER SOSA D.O.; Leah Barrera M.D. [place] [id number] Patient Name: RENUKA PADRON MRN: [id number] date: 1955 Sex: F Assigned Patient Location: US Current Patient Location: Accession/Order Number: [id number] Exam Date: 01/27/2024 11:00 Report Date: 01/27/2024 12:43 At the request of: LEAH BARRERA Procedure: US thyroid EXAMINATION: US thyroid HISTORY: Non Toxic Multinodular Goiter E04.2 COMPARISON: 01/07/2023 TECHNIQUE: Sonographic images of the thyroid gland were obtained. FINDINGS: The right thyroid lobe measures 4.7 x 1.9 x 2.4 cm. Heterogeneous echotexture with a single nodule over 5 mm. The thyroid isthmus measures 3 mm. Heterogeneous. No focal nodule The left thyroid lobe measures 3.8 x 1.9 x 1.5 cm. Heterogeneous echotexture with 2 focal nodules over 5 mm The most suspicious nodule: Right thyroid lobe: 1.2 x 1.4 x 1.0 cm. Solid, isoechoic, wide, smooth margins, no calcifications. TR 3 In the left neck is a borderline enlarged lymph node measuring 2.0 x 1.0 x 0.9 cm US/US thyroid IMPRESSION: Stable bilateral thyroid nodules TI-RADS: The [employer] TI-RADS committee's white paper recommendations for thyroid lesions classified as TR3 (mildly suspicious) are listed below: > 1.5 cm. Follow-up ultrasound in 1, 3, and 5 years. > 2.5 cm. FNA. J. Am Nick Radiol 2017;14:587-595. Electronically authenticated by: ANUSHA AGUERO Date: 01/27/2024 12:43 Dictated By: Anusha Aguero M.D. Signed By: 01/27/245 DD/ 42 TD/TT: Technician Plant And Maintenance:KESHIAHRadiologcori, Radiologist, - 01/27/2024 The [place] [id number] Ultrasound Report Signed Patient: RENUKA PADRON MR#: [id number] : 1955 Acct:[id number] Age/Sex: 68 / F ADM Date: 01/27/24 Loc: US Attending Dr: Leah Barrera M.D. Ordering Physician: Leah Barrera M.D. Date of Service: 01/27/24 Procedure(s): US thyroid Accession Number(s): [id number] cc: PETER SOSA D.O.; Leah Barrera M.D. [place] [id number] Patient Name: RENUKA PADRON MRN: [id number] date: 1955 Sex: F Assigned Patient Location: US Current Patient Location: US Accession/Order Number: [id number] Exam Date: 01/27/2024 11:00 Report Date: 01/27/2024 12:43 At the request of: LEAH BARRERA Procedure: US thyroid EXAMINATION: US thyroid HISTORY: Non Toxic Multinodular Goiter E04.2 COMPARISON: 01/07/2023 TECHNIQUE: Sonographic images of the thyroid gland were obtained. FINDINGS: The right thyroid lobe measures 4.7 x 1.9 x 2.4 cm. Heterogeneous echotexture with a single nodule over 5 mm. The thyroid isthmus measures 3 mm. Heterogeneous. No focal nodule The left thyroid lobe measures 3.8 x 1.9 x 1.5 cm. Heterogeneous echotexture with 2 focal nodules over 5 mm The most suspicious nodule: Right thyroid lobe: 1.2 x 1.4 x 1.0 cm. Solid, isoechoic, wide, smooth margins, no calcifications. TR 3 In the left neck is a borderline enlarged lymph node measuring 2.0 x 1.0 x 0.9 cm US/US thyroid IMPRESSION: Stable bilateral thyroid nodules TI-RADS: The [employer] TI-RADS committee's white paper recommendations for thyroid lesions classified as TR3 (mildly suspicious) are listed below: > 1.5 cm. Follow-up ultrasound in 1, 3, and 5 years. > 2.5 cm. FNA. J. Am Nick Radiol 2017;14:587-595. Electronically authenticated by: ANUSHA AGUERO Date: 01/27/2024 12:43 Dictated By: Anusha Aguero M.D. Signed By: 01/27/24 1245 DD/ 1243 TD/TT: Technician Plant And Maintenance: DEB HealthcareRadiology Study observation (narrative)SOURAVSid SaldañaUS Thyroid glandOrdered By: Radiologist Radiology on 17-10-8579NHDN Healthcare Work Phone: ecg 12 leadon 03-25-2023 Wave Tlfx27jqnfxfaYizodxb HealthP-R Zcpnqeow499 [facility]Path[facility] interpretation (Bld) [Interp] Normal sinus rhythm Left bundle branch block Abnormal ECG Confirmed by Evelyn Jose MD ([id number]) on 03/25/2023 1:21:08 PM [facility] HospitalQ-T Mpyudiji948 [facility]-ErieQRS Rlexfuwp162 [facility] ILm941 [facility]rieR [place]-19degreesGeisinger Encompass Health Rehabilitation HospitalTroponin T.cardiac [Mass/Vol]83 ug/LdegreesTrinCorewell Health William [facility] HealthLaboratory - Coagulationon 39-44-3792HPG Coag (Bld)74 sBPMTEncompass Health Rehabilitation Hospital of AltoonaBsrfmfLHMJ-RjW-2 (COVID-19) RNA TORRES+probe Ql (Resp)on 84-75-2441Iazzwpistilpsc and review of laboratory resultsNormal [facility] HospitalKdwbuiXCMO-UsJ-8 (COVID-19) RdRp gene TORRES+probe Ql (Resp)Not detectedNot DetectedTrinCorewell Health [facility] HealthBacteria identified Anaer cx Nom (Unsp spec)Ordered By: Deep Sagastume on 85-65-8931Cdtzmct HealthBacteria identified Anaer cx Nom (Unsp spec)on 59-12-3376Peatuak HealthCulture anaerobicOrdered By: Deep Sagastume on 00-55-4896Xmmqcywm identified Anaer cx Nom (Unsp spec)No anaerobes grown after 4 days.[facility] Systemoratory - Microbiology and Antimicrobial susceptibilityon 83-14-1347Dzsvahnx identified Anaer cx Nom (Unsp spec)No anaerobes grown after 4 days.[place] HealthBacteria identified Cx Nom (Tiss)on 85-19-7315Upduwrdaugv observation Gram stain Nom (Unsp spec)No Polymorphonuclear leukocytesTrinmain campus medical center HealthComment on above:This is an appended report. These results have been appended to a previously preliminary verified re port.Microscopic observation Gram stain Nom (Unsp spec)No Epithelial cells Renate HealthComment on above:This is an appended report. These results have been appended to a previously preliminary verified report.Microscopic observation Gram stain Nom (Unsp spec)No organisms seenTrinity HealthComment on above:This is an appended report. These results have been appended to a previously preliminary verified report.Renate HealthMicroscopic observation Gram stain Nom (Unsp spec)Moderate Polymorphonuclear leukocytesTrinity Health Comment on above:This is an appended report. These results have been appended to a previously preliminary verified report.Microscopic observation Gram stain Nom (Unsp spec)No Epithelial cellsTrinity HealthComment on above:This is an appended report. These results have been appended to a previously preliminary verified report.Microscopic observation Gram stain Nom (Unsp spec)No organisms seenTrinity HealthComment on above:This is an appended report. These results have been appended to a previously preliminary verified report.[facility] Microscopic observation Gram stain Nom (Unsp spec)No Polymorphonuclear leukocytesTrinity HealthComment on above:This is an appended report. These results have been appended to a previously preliminary verified report. Microscopic observation Gram stain Nom (Unsp spec)No Epithelial cellsTrinity HealthComment on above:This is an appended report. These results have been appended to a previously preliminary verified report.Microscopic observation Gram stain Nom (Unsp spec)No organisms seenTrinity HealthComment on above:This is an appended report. These results have been appended to a previously preliminary verified report.Renate HealthMicroscopic observation Gram stain Nom (Unsp spec)Few Polymorphonuclear leukocytesTrinity HealthComment on above:This is an appended report. These results have been appended to a previously preliminary verified report.Bacteria identified Sterile body fluid culture Nom (Unsp spec)Ordered By: Aggie Aiken on 24-81-3392Ltmukcrn identified Cx Nom (Body fld)Rare Pasteurella multocidaAbnormalTrinity HealthComment on above: Appropriate antibiotic therapy for infections due to Eikenella and Pasteurella spp.would include anoral or parenteral Penicillin/Beta-lactamase inhibitor combination or a second or third generation Cephalosporin depending on the severity of the illn ess. The organism value for this result has been updated. These results have been appended to the previously preliminary verified report. Microscopic observation Gram stain Nom (Unsp spec)Many Polymorphonuclear leukocytesTrinity HealthComment on above:This is an appended report. These results have been appended to a previously preliminary verified report.Culture tissue with gram stainon 28-72-6578Esklbsat identified Cx Nom (Tiss)No growth at 3 daysTrinity HealthBacteria identified Cx Nom (Tiss)No growth at 3 daysTrinity HealthBacteria identified Cx Nom (Tiss)No growth at 3 daysTrinity Health Bacteria identified Cx Nom (Tiss)Rare Pasteurella multocidaAbnormalTrinity HealthComment on above:Appropriate antibiotic therapy for infections due to Eikenella and Pasteurella spp.would include anoral or parenteral Penicillin/Beta-lactamase inhibitor combination or a second or third generation Cephalosporin depending on the severity of the illn ess. The organism value for this result has been updated. These results have been appended to the previously preliminary verified report. Laboratory - Microbiology and Antimicrobial susceptibilityOrdered By: Aggie Aiken on 07-51-9856Hruogckowky observation Gram stain Nom (Unsp spec)No Epithelial cellsTrinity HealthComment on above:This is an appended report. These results have been appended to a previously preliminary verified report. Microscopic observation Gram stain Nom (Unsp spec)No organisms seenTrinity HealthComment on above:This is an appended report. These results have been appended to a previously preliminary verified report.No Panel InformationOrdered By: Aggie Aiken on 09-03-5968Yrhgsrfgsafaww and review of laboratory results AbnormalTrinity HealthTrinity HealthBasic metabolic 2000 panelon 96-30-1472Lseym gap [Moles/Vol]8 mmol/L6 - 18Trinity HealthCalcium [Mass/Vol]9.1 mg/dL8.9 - 10.3 mg/dLTrinity HealthChloride [Moles/Vol]104 mmol/L98 - 107 mmol/LTrinity HealthCO2 [Moles/Vol]25 mmol/L22 - 32 mmol/LTrinity HealthCreatinine [Mass/Vol] 0.92 mg/dL0.60 - 1.30 mg/dLTrinity HealthGFR/1.73 sq M.predicted among non- blacks MDRD (S/P/Bld) [Vol rate/Area]68 mL/min/{1.73_m2}- PINFTrinity Health Comment on above:Effective July 27, 2022, calculation based on the Chronic Kidney Disease Epidemiology Collaboration (CKD-EPI) equation refit without adjustment for race.Glucose [Mass/Vol]95 mg/dL70 - 99 mg/dLTrinmain campus medical center Health Interpretation and review of laboratory resultsAbnormalTrinity HealthPotassium [Moles/Vol]4.6 mmol/L3.6 - 5.1 mmol/LTrinity HealthSodium [Moles/Vol]137 mmol/L 136 - 145 mmol/LTrinity HealthUrea nitrogen [Mass/Vol]22 mg/dLHigh8 - 20 mg/dL [facility] HealthUrea nitrogen/Creatinine [Mass ratio]23.9 mg/ahAvbi71.0 - 20.0 [facility] HealthTrinity HealthGlucose Auto test strip (Bld) [Mass/Vol]on 73-97-3696Ilmxaqs [Mass/Vol]112 mg/rJBtbn56 - 99 mg/dLTrinmain campus medical center Health Interpretation and review of laboratory resultsAbnormalTrinity HealthTrinity HealthGlucose [Mass/Vol]124 mg/xZFyqu69 - 99 mg/dLTrinity HealthInterpretation and review of laboratory resultsAbnormalTrinity HealthTrinity HealthGlucose [Mass/Vol]85 mg/dL70 - 99 mg/dLTrinity HealthInterpretation and review of laboratory resultsNormalTrinity HealthTrinity HealthHemogram and platelets WO differential panel (Bld)on 54-33-2216Iqfjagcmk (Bld) [#/Vol]0.04 10*3/uLTrinity HealthBasophils/100 WBC (Bld)0.4 %0.0 - 2.0 %[facility] HealthEosinophils (Bld) [#/Vol]0.08 10*3/uLTrinity HealthEosinophils/100 WBC (Bld)0.7 %0.0 - 7.0 % [facility] HealthErythrocyte distribution width (RBC) [Ratio]13.6 %11.0 - 14.8 % [facility] HealthHematocrit (Bld) [Volume fraction]36.0 %34.3 - 47.9 %[facility] HealthHemoglobin (Bld) [Mass/Vol]11.6 g/dLLow12.0 - 16.0 g/dLTrinity Health Immature granulocytes (Bld) [#/Vol]0.07 10*3/uLTrForbes HospitalImmature granulocytes/100 WBC (Bld)0.7 %0.0 - 1.2 %[facility] HospitalInterpretation and review of laboratory resultsAbnormalTrinmain campus medical center HealthLymphocytes (Bld) [#/Vol]1.70 10*3/uLTrForbes HospitalLymphocytes/100 WBC (Bld)15.8 %Low17.9 - 49.6 %[facility] CenterH (RBC) [Entitic mass]28.4 pgTrinTemple University Health SystemHC (RBC) [Mass/Vol]32.2 g/dL30.8 - 35.3 g/dLTrinTemple University Health SystemV (RBC) [Entitic vol]88.0 fLTEncompass Health Rehabilitation Hospital [facility]ona Monocytes (Bld) [#/Vol]1.02 10*3/uLHighTrinmain campus medical center HealthMonocytes/100 WBC (Bld)9.5 %0.0 - 12.0 %RenateRiddle HospitalNeutrophils (Bld) [#/Vol]7.84 10*3/uLHighTrinmain campus medical center HealthNeutrophils/100 WBC (Bld)72.9 %38.1 - 75.5 %[facility] HospitalPlatelet mean volume (Bld) [Entitic vol]10.4 fLTrinmain campus medical center HealthPlatelets (Bld) [#/Vol]300 10*3/uLTrinity HealthRBC (Bld) [#/Vol]4.09 10*6/uLTrcancer treatment centers of america HealthWBC (Bld) [#/Vol]10.8 10*3/uLHighTrinity [facility] Hospital - MuhlenbergBasic metabolic 2000 panelon 15-67-9099Vwwqu gap [Moles/Vol]11 mmol/L6 - 18TrinRiddle HospitalCalcium [Mass/Vol] 9.0 mg/dL8.9 - 10.3 mg/dLTrinmain campus medical center HealthChloride [Moles/Vol]104 mmol/L98 - 107 mmol/LTrinity HealthCO2 [Moles/Vol]23 mmol/L22 - 32 mmol/LTrcancer treatment centers of america Health Creatinine [Mass/Vol]1.03 mg/dL0.60 - 1.30 mg/dLTrinmain campus medical center HealthGFR/1.73 sq M.predicted among non-blacks MDRD (S/P/Bld) [Vol rate/Area]60 mL/min/{1.73_m2}- PINFTrinity HealthComment on above:Effective July 27, 2022, calculation based on the Chronic Kidney Disease Epidemiology Collaboration (CKD-EPI) equation refit without adjustment for race.Glucose [Mass/Vol]106 mg/gERvxs24 - 99 mg/dL [facility] HealthInterpretation and review of laboratory resultsAbnormalTrinity HealthPotassium [Moles/Vol]4.9 mmol/L3.6 - 5.1 mmol/LTrinity HealthSodium [Moles/Vol]138 mmol/L136 - 145 mmol/LTrinity HealthUrea nitrogen [Mass/Vol]31 mg/dLHigh8 - 20 mg/dLTrinity HealthUrea nitrogen/Creatinine [Mass ratio]30.1 mg/toYydu23.0 - 20.0Trinity HealthTrinity HealthGlucose Auto test strip (Bld) [Mass/Vol]on 82-52-7518Csudmih [Mass/Vol]109 mg/zJHoho09 - 99 mg/dLTrinity HealthInterpretation and review of laboratory resultsAbnormalLitchfield Health [facility] HealthGlucose [Mass/Vol]89 mg/dL70 - 99 mg/dLTrinity Health Interpretation and review of laboratory resultsNormalTrinity HealthTrinity HealthGlucose [Mass/Vol]106 mg/gIRvjj73 - 99 mg/dLTrinity HealthInterpretation and review of laboratory resultsAbnormalTrinity HealthTrinity HealthGlucose [Mass/Vol]116 mg/mBYldf90 - 99 mg/dLTrinity HealthInterpretation and review of laboratory resultsAbnormalTrinity HealthTrinity HealthHemogram and platelets WO differential panel (Bld)on 89-31-5007Laljnjcce (Bld) [#/Vol]0.02 10*3/uLTrinity HealthBasophils/100 WBC (Bld)0.2 %0.0 - 2.0 %[facility] HealthEosinophils (Bld) [#/Vol]0.00 10*3/uLTrinity HealthEosinophils/100 WBC (Bld)0.0 %0.0 - 7.0 % [facility] HealthErythrocyte distribution width (RBC) [Ratio]13.9 %11.0 - 14.8 % [facility] HealthHematocrit (Bld) [Volume fraction]38.9 %34.3 - 47.9 %RenateRiddle HospitalHemoglobin (Bld) [Mass/Vol]12.2 g/dL12.0 - 16.0 g/dLTrinRiddle HospitalImmature granulocytes (Bld) [#/Vol]0.08 10*3/uLTrForbes HospitalImmature granulocytes/100 WBC (Bld)0.7 %0.0 - 1.2 %[place] HealthInterpretation and review of laboratory resultsAbnormalTrinmain campus medical center HealthLymphocytes (Bld) [#/Vol]1.07 10*3/uLTrcancer treatment centers of america Health Lymphocytes/100 WBC (Bld)9.3 %Low17.9 - 49.6 %[facility] HospitalMCH (RBC) [Entitic mass]28.2 pgTrinRiddle HospitalMCHC (RBC) [Mass/Vol]31.4 g/dL30.8 - 35.3 g/dLGeisinger Encompass Health Rehabilitation HospitalMCV (RBC) [Entitic vol]89.8 fLTrinmain campus medical center HealthMonocytes (Bld) [#/Vol]0.61 10*3/uLTrcancer treatment centers of america HealthMonocytes/100 WBC (Bld)5.3 %0.0 - 12.0 %[facility] Neutrophils (Bld) [#/Vol]9.71 10*3/uLHighTrinmain campus medical center HealthNeutrophils/100 WBC (Bld) 84.5 %High38.1 - 75.5 %RenateRiddle HospitalPlatelet mean volume (Bld) [Entitic vol] 11.2 fLTrinmain campus medical center HealthPlatelets (Bld) [#/Vol]270 10*3/uLTrcancer treatment centers of america HealthRBC (Bld) [#/Vol]4.33 10*6/uLTrcancer treatment centers of america HealthWBC (Bld) [#/Vol]11.5 10*3/uLMary Babb Randolph Cancer CenterTrinSelect Specialty Hospital - Laurel HighlandsPathology studyOrdered By: Anusha Dietrich on 76-84-9188Rnhojgbx Jeff (Reference lab test) a3oxjYXyMCUwz6oiAVXahUIwVgIwKhCcVjWbAokqcRDrXPwhruGnLXsav1PlR8TgHsWnMFknwlAnOPSs NydzayixQKFkAVJ3inVl VVDkRWxmXNHvNIzdUr3yhOBttJxvRuUaKRPdo7xpssGRVLstJFECVHn3v7wsXLEbBsK5mQTpWEqyU1lj lyUugDJnN2Kkn2StNKf2 sD38DKTswC8ngIHbDNykmdCpJiX6GLkoHBZeXoG1UPEsgNZcNOIeH7kwMEPjNTjnliYdkkA6MIAbcHVa WKF1DNEcTFPsQ0QrEM8v APXeiXJpVHf1c0xmpIcdCICiZEV8y0mbVHhbywFnZB6gpm7kpMh8h1eaatHfHMAtSYWpsEURVZKvC2Ux iGzwJa5jdIz6mFaiKyoy ROY3Pin6MI9wtv30mfi2kZfjQWSsjqvfCoO2ZRtcYQBmiaawTAb4IXleQKMqlNR0UZMdjAVyE9WwBXLk YM6xuje6EYJ7CUatNGHi YyM0HCYvvUSyFBEvoKvoJAkbi536GQF1MeEeED9tO3Yel7O1vE4fjJSyKXKeqXQpMoPzYEQldv3qyUIn JDxma8IeQMM7teV9bYYc uQDdZBSvCR24Xmtna7LkOhvwDSU3GRAsgpHug1Cbk5xrPtAeofQuP4wxC1HjBZAiSQDaSGReWhIslxGf p4Zfy2MnjCJaiDj8i4tg AUInVJQamLqua2niKGV1AJSeL1S6bXQep2taHYgdBTGnlJY0neZ6QFIveEIlL2YhqW1nZWPeRN8ffeg5 p0zbGXU2MEyzCLYyYyZ4 rpT2XNBmyUMzNGXucAqvZSdfz960FTA8YoDoPZAnh5VaB5NsoUkcQ89jkHzxL09lBOWafObrtN1fkRvl dE0sQhXnMmMwJXttvYuv wEVmbwfxCTnqzrF4KKkrwgqgMLTvTLwuW3oqMtNsZZWevGkfQBbfn9CfNPGdDDQpApuqbvW5LNhiPR69 XPqgnSPrx5vkl9InD9fp pBcorZE0WN3nZKVvGHLxBZbhs5ZsvU0ieZWzLAEoyaX5eJYjcZ93BQIaxkX8RFYgt86ib6DsgRhuupLq DBZkCTwpluKtADLvz8Jx VHYyZSEwCI19jzOmX4VbrPAgMNYfzrUeGIbceO9pf9n7APmhJc1kJHxbn5ZekXKgwYSijIM2MQSdz0Zb BrUdmzImoQYivtBtVX8r HLYmrXCepkVfZUZ0QMZhUEMRZkGmXYBot8DkKI7qVDGrwBscOOVjeO9kj8BoSSMnj78pUGCwPHNWDCFs aGFzIGRldGVybWluZWQg tPzigPMnmNQkXDSyBOQhQV0sVARxawDngTKqi9BjwFEnorRen8XfgkImXAUkLPE7GwZIfRZaDAR8URV6 ubFneaHogWJfWMXec1Rx A8lpgeygLZwmrCLnoD8cGFEvHZ5mUIAnv8PzNRFta4BbMlCrwcBpRCAaWNFpXLHkiB87VPM0dJntuKyv ouXtVD0rJABlntOaTOLp LOUwaI3yBKcjdmHqDRYijyZ6n6S9XRgbRKKvnyBsEfpoEOT7ziLnFJYtu0QrXWaxM8rxI49wuJjldGr6 dWS1TKI7aE4uOOBjBQDf YXJjFNHQvCaelIEwtFZAMVJjxrQ5v7E9WJgdaECkjyPhBU45GAZaGH7hpYGbcXZbs8InQUt7GZ7vYOol RYHtcuTey9ffLFFvg5kd AUNczc9wcejvjBJbrjYpD0Qozuj5jC2cnEGsNXOtyx46TEO6DfTsKA8kuEucOHFeTH7hZEGwB2aqqJ1z jae4YxNet6nwdEQnUGKg zFZxVwGlQMGnIDAni2boXSCadJIzKlDpXuZqFrYtHlatiCPeGPYtHfZlu8aya627kMNzs8sfMDCrGpH0 aTGaCBXvI57tJAFKH150 MASxXPmnp8eqr9EmCNLmgHLog1Y5TBQBJIumQYVQWJk5bDqbH81rv6C1NhvlF9gqIMCjIXWwI6AmPC1c GZWxVra4PHN8EWG1ESJs ENK3LAowRFNqWHUcLfw5GUE1UVkgeiIgITFoPUfmKYTwCBTnOBLqgNNnNWQgD0khZPSqAXfzRWUbCBgv kHJmUZP6kOvwm4W9hBHp rMOsbHnlQdUaQcSzEhBDd8OvQOl1kDvqB2HyVQYjBqB1gGWbZLAfDAltJZIsPAYwlbM1vW16NWrrhlF0 oYVfc9Axg82ka803kP3k kMQtMZW7LYCwVMBhuNVrMNGkWSP1FXHzdFHxQ1klZNInXT5bssxwIUjbDSlrTMTdaGT1DXNabVInM9Iq VELsLXqvFKYwtcn1XgRz Pd0fjDVtvXebPVgad5sdj0yvnSQiMoy7FDZsEnWnFadlTTfyr4Fsy6qnQXSdiw6eDVM1jWUyzNvls3X2 bGUxXGRudGJsbnNiZGJc PjQ3UFzyKE3anu01SXUjPNX4ul4jcATbgTvyeoDmfDLwCIysQ9AwGKXbg568MGUfW1ZbIHCdf7W0rnJg ZzXuAMTwyMP4wfV5JJRg ATn2rVQacoX0taVbpMYyA9zalD5eLQRuOM5wdefhd7fsTYnoWRibSQSkeWM7nmW8VICupFLgE6PutH4u MOXhEQuvAMFkrwy3HvRp Yn4iwPQyvLwqGViaVefgUTkrTHIqfwFxtvRpnWhlFNFfBCMmREsnCGCqJZppUOOaSORaRrRcwOfdoCnx iB1yUiShAiRvOFseXJ9r FXJcK0kwbKVeLXScGJAuK2dcAxRbtA3xvYneUCpeKvFpLrEuLMzbPQQpOLR7HDFwiacpALvmM93rvO0d IK58NYvhwhKeCEEzz3Rb HMSxKFPnPXfbKTBdzlBfMAyleF8wb1g3LBbiIr1mPVPywplgZZT8TfWiLV85VmezdKWmMDYRdnGoESTa bHVtYnVzLCBPaGlvIDQz FdE2ZnXRsKTca5Fxu1TuPhPcwSKwnW0tuOvbltW7RFPkgLXdHl7fwVMpGxvdjWHotghrUMvidgY9KUbj luvvCLEtYBxlE8gtRmJmAQXuuOvgCIeuy9CdHFPrBOLaU3lkpyW7GLeelILvGGGfvk45vC==[facility] Work Phone: Microscopic description Jeff (Endomyocardium) c9qyoKQuKVUeoOOWVYEvECOeRN7wuFfdhIz4dNxrVIZauvW5eORcOLbid3nbKEP4e0xpddIWIsxeXWZt XY4dUUqqGKJiOK0tIaDf ABAwSlBsTHCxnQFescOfEgUoLBRmdPOsgID7XVEfVG7ogdtmUSaoLCdmXXVxfcW1ZMDvoEUfP0SqKDMk CA3jsqotQLF2NMYMBuve Is1ckROsfTGQQgthKqJvZrQoGHOvLGWyTYPwyJubHMSzNVc2hX6Un0hhXefvU5wfirBofOHsDd3kjPSF FDgzMGFLBFu4sZ1KOUEz R6WrKF6Ku4orGNColHUzRZO9OOlfo7fnIHhnPUM5OUAbRVQyLCHlLV9DQkUqWVKxSCWrEGmwEvX6UIv9 LRFPRHKnSUQ0VrBqRwG0 LAs7OLAcRL1bZVcyoHYrJTkgHgcoGYsvJ122NZirBNToB3JmZ2YhZLxbJyMdUXoxNPGzMTJyCKkeGQDx Q7XUNPRtUrMcXeI6QEDr JTv8WEq1VX5YXfQuBFEbGqS4HxM2YZZhFBg4ITouNI7NSZQpLAH6TmzrPWRgCSE9NDXpXWz0SOJvQQne uyNzFHdeIkyhMPvmW81w kXGqPAYJZmohbEXlbitfBHsdfeUoXNItGQnmLHJrZPevUqSuGSavEUCaHJgexLQzTN9DNWSamvOqVTzf dEzozC9yBsSdJeGhDKpm oRDtbinsaHQweLblzeErYDWhhFBGRWA7DP8fJGDTHojadXAnBPGlwTnhBJplaI4dDDJxDePhVDHeF5cm WMEbIP1DXEJmCVBkYcMt EdChHAp5SMGswB1cJo6vtEOwpG7wzTVpLAgvILT5tAYlGMErNGSgMSHvCR39K9NkrtOkNCltVV8aTVYk NMe7pO5qOMsndTXmCMTf nGFyGZAtRJG1JPlxWLEsDFopPNTdwU1yvClvwrGtLiAvfaRyK2TrPDWesSXkQTcknJhutpW9dmP6ZF7h V2UjeWAbyZZnf75zgMPn EP7tzEFdhSvmv8CaHKtzpKqarXMfUDIexSqpKLTeLWTjfxezkeMhfWvgvoYsThaupSHmOvLdfWCsKmOq C46jOVBIIHT9aJ4yvE9d VLUtgvZoeJMgOEY5HW9vxUYiuV16OSVmGRLatp2einK5RZNfjKTwc8RgGFG3gSGxtXFhFXKwRWzrdFit oy5jo2B7hY22kvSnvZRo wOPgp6CgUHLqAPMeRNveOV44fMQgXWDtDUHIVSLcWHBsnlTgtPm7HKDlADB0zX6sjmIsopRfu0NpbJw4 qDEwBOnzQHXmk0lpL9zq LECrv7JebMXoVmMnKHaBLJsZIiydtIjdRnVkaGGtThN6VZOyxREoZAX8VD4tpMrpTCFpM5ZzW8FowxU3 FDGvirLXXzcvSFKwQL3OJHYpLMCoGvCqOUp8Ybnqztm Health Work Phone: Pathology report final diagnosis Narrative h6ndlWIdFDAriQQlYQMlDitnonCsPTQklSIhO6PgczzxPUcuQP9gGK1yjFyswMUvqVYlIASyCvHlc7vu e239iVBcq4lzACRScnrk rFn0vGwcO51hq3X3WyijG1zvVRLkEXpzRVQsALbfuJSxBMy3MVXddFQuciOmAxSdZRGylULqdTI4JVNo PK7lxrfqSYuzLLjhOKTq bvJ7GWMdqPZpG4RbVXQbGQ7rejrnMAI2LDcxGGDeLHA3JcVlAWAru5Fpsrb8ZjHfmCa4x4arEHXpVXAp eMcoc7obLLE1HJKuaOKp H4meeV5pFAJtZW4lqhsvr2tfGBksCDjtLSAtuWA1noD7RNJeaFDfT3YfeA0lRANsVIWoboVkfYxcjP6j H2FoKKBULNO0TNfzVJSg IBGdy0DhvTrqxGZaSRR8tp81oXRtYLmbqLknjUCtc9NrIYGyxKSkXUwdLhmbjD8ekAcdry4EVP5mYYck FMN0AZLbpDariaY2KCIp nyThiOqsPPTle0HgAIEfQBckWjbpVVReTi8otKTggZBcj3Q6oGKeSQk8eFPwq5A5oUecYDbeTvyhhF9r yXtzipSktlKsvjOdCB23QvpiWMY6Ygypzfg Health Work Phone: [facility] [employer] Phone: XR Knee 1-2 Views Lefton [id number] post left total knee arthroplasty. -------- FINAL REPORT -------- Dictated By: Ania Dumont Dictated Date: 03/20/2023 07:17 Assigned Physician: Ania Dumont Reviewed and Electronically Signed By: Ania Dumont Signed Date: 03/20/2023 07:18 Workstation ID: [id number] Transcribed By: Self Edit Transcribed Date: 03/20/2023 07:17 POWERSCRIBEEXAM: XR KNEE 1-2 VIEWS LEFT HISTORY: postoperative care COMPARISON: 10/02/2022. TECHNIQUE: Frontal and lateral views of the left knee. FINDINGS: Status post left total knee arthroplasty. Hardware is intact. Alignment is within expected limits. Surgical drain and skin almita are noted. Ania Olson MD - 03/20/2023 EXAM: XR KNEE 1-2 [...] By: Self Edit Transcribed Date: 03/20/2023 07:17 TraktoPROXR Knee 1-2 Views LeftOrdered By: Ania Dumont on 03-20-2023 [employer] Work Phone: basic metabolic 2000 panelon 43-28-5656Mpgqd gap [Moles/Vol]9 mmol/L6 - 18Trinity HealthCalcium [Mass/Vol]10.2 mg/dL8.9 - 10.3 mg/dLTrinity HealthChloride [Moles/Vol]104 mmol/L98 - 107 mmol/LTrinity Health CO2 [Moles/Vol]27 mmol/L22 - 32 mmol/LTrinity HealthCreatinine [Mass/Vol]1.10 mg/dL0.60 - 1.30 mg/dLTrinity HealthGFR/1.73 sq M.predicted among non-blacks MDRD (S/P/Bld) [Vol rate/Area]55 mL/min/{1.73_m2}Low- PINFTrinity HealthComment on above:Effective July 27, 2022, calculation based on the Chronic Kidney Disease Epidemiology Collaboration (CKD-EPI) equation refit without adjustment for race.Glucose [Mass/Vol]97 mg/dL70 - 99 mg/dLTrinity HealthInterpretation and review of laboratory resultsAbnormalTrinity HealthPotassium [Moles/Vol]4.4 mmol/L3.6 - 5.1 mmol/LTrinity HealthSodium [Moles/Vol]140 mmol/L136 - 145 mmol/L [facility] HealthUrea nitrogen [Mass/Vol]36 mg/dLHigh8 - 20 mg/dLTrinity HealthUrea nitrogen/Creatinine [Mass ratio]32.7 mg/lqQwpb44.0 - 20.0Trinity HealthTrinity HealthCell count panel (Body fld)Ordered By: Deidra Stallings on 20-60-4948Pckopro (Body fld)CloudyTrinity HealthColor (Body fld)OrangeTrinity HealthRBC Auto (Body fld) [#/Vol][id number] /[id number] HealthComment on above:The reference range and other method performance specifications have not been established for this fluid specimen. The test result should be integrated into the clinical context for interpretation.Specimen source Nom (Body fld)KneeTrinity HealthWBC (Body fld) [#/Vol][id number] /[id number] HealthComment on above:The reference range and other method performance specifications have not been established for this fluid specimen. The test result should be integrated into the clinical context for interpretation.Called to Galilea MCGOVERN 1422 03/19/23 GKBTrinmain campus medical center HealthTrinity Health Differential panel (Body fld)on 05-46-1495Bqvbrbfgybj/100 WBC Manual cnt (Body fld)[facility] HealthMonocytes+Macrophages/100 WBC (Body fld)4.0 %[facility] Neutrophils/100 WBC (Body fld)96.0 %[facility] HealthTrinity HealthGlucose Auto test strip (Bld) [Mass/Vol]on 72-07-9335Lrubmog [Mass/Vol]131 mg/qYHmlb51 - 99 mg/dLTrinity HealthInterpretation and review of laboratory resultsAbnormal Ren[facility] HealthTrinity HealthGlucose [Mass/Vol]124 mg/qFSrvm08 - 99 mg/dLTrinity HealthInterpretation and review of laboratory resultsAbnormalTrinity Health Renate WzkbqpTjD1s HPLC (Bld) [Mass fraction]on 13-60-2360Ysgtxzl [Mass/Vol]117 mg/dLTrinity XqvnzzMeO0o (Bld) [Mass fraction]5.7 %HighNINF - 5.6 %[facility] HealthInterpretation and review of laboratory resultsAbnormalTrinity EeooaiYpM0h values of 5.7-6.4 percent indicate an increased risk for developing diabetes mellitus. HbA1c values greater than or equal to 6.5 percent are diagnostic of diabetes mellitus. For diagnosis of diabetes in individuals without unequivocal hyperglycemia, results should be confirmed by repeat testing. [facility] HealthHemogram and platelets WO differential panel (Bld)on 60-88-2585Wdmifmiya (Bld) [#/Vol]0.05 10*3/uLTrinity HealthBasophils/100 WBC (Bld)0.4 %0.0 - 2.0 %[facility] HealthEosinophils (Bld) [#/Vol]0.07 10*3/uLTrinity HealthEosinophils/100 WBC (Bld)0.6 %0.0 - 7.0 %[facility] HospitalErythrocyte distribution width (RBC) [Ratio]13.9 %11.0 - 14.8 %[facility] HospitalHematocrit (Bld) [Volume fraction]40.6 %34.3 - 47.9 %[facility] HospitalHemoglobin (Bld) [Mass/Vol]12.9 g/dL12.0 - 16.0 g/dLGeisinger Encompass Health Rehabilitation HospitalImmature granulocytes (Bld) [#/Vol]0.07 10*3/uLTrinity HealthImmature granulocytes/100 WBC (Bld)0.6 %0.0 - 1.2 %[facility] HospitalInterpretation and review of laboratory resultsAbnormal [facility] HealthLymphocytes (Bld) [#/Vol]1.28 10*3/uLTrForbes HospitalLymphocytes/100 WBC (Bld)10.3 %Low17.9 - 49.6 %[facility] CenterH (RBC) [Entitic mass]27.9 pg [facility] CenterHC (RBC) [Mass/Vol]31.8 g/dL30.8 - 35.3 g/dLCrozer-Chester Medical CenterV (RBC) [Entitic vol]87.7 fLTrinmain campus medical center HealthMonocytes (Bld) [#/Vol]1.01 10*3/uLHigh Renate HealthMonocytes/100 WBC (Bld)8.1 %0.0 - 12.0 %[facility] HealthNeutrophils (Bld) [#/Vol]9.93 10*3/uLHighTrinity HealthNeutrophils/100 WBC (Bld)80.0 %High 38.1 - 75.5 %[facility] HealthPlatelet mean volume (Bld) [Entitic vol]9.6 fLTrinity HealthPlatelets (Bld) [#/Vol]268 10*3/uLTrinity HealthRBC (Bld) [#/Vol]4.63 10*6/uLTrinity HealthWBC (Bld) [#/Vol]12.4 10*3/uLHighTrinity Adena Health SystemTrinity HealthXR Knee 1-2 Views Lefton 97-02-2138Bgdyvkaxw Study observation (narrative) [facility] HospitalCBC AUTO DIFFon 58-02-4337EVIF #0.0 103/ulNormal0.0-0.1The [facility]rington HospitalComment on above:Performed By: #### CBC #### [facility] [address] [address] [address] Kyree NealBasophils/100 WBC (Bld)0.3 %Normal0.2-2.0[facility] Comment on above:Performed By: #### CBC #### [facility] [address] [address] [address] Kyree Jackson #0.0 103/ulNormal0.0-0.7The [facility] HospitalComment on above: Performed By: #### CBC #### [facility] [address] [address] [address] Kyree Cooperosinophils/100 WBC (Bld)0.1 %Critically low0.9-7.0The [facility] HospitalComment on above:Performed By: #### CBC #### [facility] [address] [address] [address] Kyree Cooperrythrocyte distribution width (RBC) [Ratio]14.0 %Glmqhd99.0-15.0 The [facility] HospitalComment on above:Performed By: #### CBC #### [facility] [address] [address] [address] Kyree NealHematocrit (Bld) [Volume fraction]38.5 %Zftdki62.0-48.0The [facility] HospitalComment on above:Performed By: #### CBC #### [facility] [address] [address] [address] Kyree NealHemoglobin (Bld) [Mass/Vol]12.4 g/rZFenmvn20.0-16.0The [facility] HospitalComment on above:Performed By: #### CBC #### [facility] [address] [address] [address] Kyree King #0.06 10e3/ulCritically high0.00-0.03[facility] Comment on above:Performed By: #### CBC #### [facility] [address] [address] [address] Kyree King %0.4 %Normal0.0-0.5The [facility] HospitalComment on above: Performed By: #### CBC #### [facility] [address] [place] [address] Dr. Kyree Koch #0.9 103/ulCritically low1.2-3.8[facility] Comment on above:Performed By: #### CBC #### [facility] [address] [address] [address] Kyree Hollingsworthhocytes/100 WBC (Bld)6.6 %Critically low20.5-60.0The [facility] HospitalComment on above:Performed By: #### CBC #### [facility] [address] [address] [address] Kyree LindquistUAL DIFF REQNONormalThe [facility]rington HospitalComment on above: Performed By: #### CBC #### [facility] [address] [address] [address] Kyree Marino (RBC) [Entitic mass]28.1 rrDfpzno59.7-34.0The [facility] HospitalComment on above:Performed By: #### CBC #### [facility] [address] [place] [address] Dr. Kyree Marino (RBC) [Mass/Vol]32.2 g/pDCkgxpg05.9-35.2The [facility] HospitalComment on above:Performed By: #### CBC #### [facility] [address] [address] [address] Kyree MarinoV (RBC) [Entitic vol]87.1 fUDfuktz50.0-99.0The [facility] HospitalComment on above:Performed By: #### CBC #### [facility] [address] [address] [address] Kyree Powers #1.2 103/ulCritically high0.3-0.8ThPro[facility] Comment on above:Performed By: #### CBC #### [facility] [address] [address] [address] Kyree Pintoocytes/100 WBC (Bld)8.6 %Normal1.7-12.0[facility] Comment on above:Performed By: #### CBC #### [facility] [address] [place] [address] Dr. Kyree Sparks #11.5 103/ulCritically high1.4-6.5ThPro[facility] Comment on above:Performed By: #### CBC #### [facility] [address] [address] [address] Kyree Lebronutrophils/100 WBC (Bld)84.0 %Critically high43.0-75.0The [facility] HospitalComment on above:Performed By: #### CBC #### [facility] [address] [address] [address] Kyree Friendlet mean volume (Bld) [Entitic vol]10.0 fLNormal9.5-13.5The [facility] HospitalComment on above:Performed By: #### CBC #### [facility] [address] [address] [address] Kyree NealPLT250 103/ewUllrng426-020Xrt [facility] HospitalComment on above: Performed By: #### CBC #### [facility] [address] [address] [address] Kyree NealRBC4.42 106/ulNormal4.20-5.40The [facility] HospitalComment on above:Performed By: #### CBC #### [facility] [address] [address] [address] Kyree NealWBC13.7 103/ulCritically high4.0-11.0The [facility] HospitalComment on above:Performed By: #### CBC #### [facility] [address] [address] [address] Kyree Reddy 22-89-1318QBN71.8 mg/dLCritically high<=1.0The [facility] HospitalComment on above:Performed By: #### HH #### [facility] [address] [address] [address] Kyree CaiLTURE BLOODon 31-56-2870Oditwrjukew examination of blood, cultureCulture Observations: NO GROWTH AT 36-48 HOURS. FINAL TO FOLLOW.NormalThe [facility]rington HospitalComment on above:Performed By: #### [id number] ####[facility] [address] [address]. Kyree NealMicroscopic examination of blood, cultureCulture Observations: NO GROWTH AT 36-48 HOURS. FINAL TO FOLLOW.NormalThe [facility] HospitalComment on above:Performed By: #### BLDCX1 ####[facility] [address] [address]Dr. Kyree NealLACTATE/LACTIC ACIDon 80-18-0636Hqvevpn [Moles/Vol]1.2 mmol/LNormal0.4-2.0The [facility] HospitalComment on above: Performed By: #### HH #### [facility] [address] [place] [address] Dr. Kyree NealPROF CHEM 8 (BAS METB)on [id number] gap [Moles/Vol]11.6 mmol/LNormalThe [facility]rington HospitalComment on above:Performed By: #### HH #### [facility] [address] [place] [address] Dr. Kyree NealCalcium [Mass/Vol]9.0 mg/dLNormal8.5-10.1[facility] Comment on above:Performed By: #### HH #### [facility] [address] [address] [address] Kyree NealChloride [Moles/Vol]102 mmol/OCchzmv84-757Oan [facility] Comment on above:Performed By: #### HH #### [facility] [address] [address] [address] Kyree NealCO2 [Moles/Vol]28.0 mmol/LTlxmfk03.0-32.0[facility] Comment on above:Performed By: #### HH #### [facility] [address] [address] [address] Kyree NealCreatinine [Mass/Vol]1.34 mg/dLCritically high0.55-1.02The [facility] HospitalComment on above:Performed By: #### HH #### [facility] [address] [address] [address] Adorno ChangEGFR-AF CUGCMQTZ58 mL/min/1.58p9Epntoopiog low>=60The [facility] HospitalComment on above:Performed By: #### HH #### [facility] [address] [address] [address] Kyree CooperGFR-NON AF KMCFCOHC11 mL/min/1.09z9Mnxjjdtunk low>=60The [facility] HospitalComment on above:Performed By: #### HH #### [facility] [address] [address] [address] Kyree NealGlucose [Mass/Vol]120 mg/dLCritically kbgw41-194Nog [facility]rington HospitalComment on above:Performed By: #### HH #### [facility] [address] [address] [address] Kyree NealPotassium [Moles/Vol]3.6 mmol/LNormal3.5-5.1[facility] Comment on above:Performed By: #### HH #### [facility] [address] [address] [address] Kyree NealSodium [Moles/Vol]138 mmol/ANemigr689-929Kej [facility] Comment on above:Performed By: #### HH #### [facility] [address] [address] [address] Kyree NealUrea nitrogen [Mass/Vol]36.0 mg/dLCritically high7.0-18.0The Cherrington HospitalComment on above:Performed By: #### HH #### [facility] [address] [address] [address] Kyree NealUrea nitrogen/Creatinine [Mass ratio]26.9 mg/mgNoWhite HospitalComment on above:Performed By: #### HH #### [facility] [address] [address] [address] Kyree NealSED RATE WESTERGRENon 23-66-1887JGL RATE80 mm/hrCritically high <=30The Cherrington HospitalComment on above:Performed By: #### HH #### [facility] [address] [address] [address] Kyree Bonds NGUYỄN DOP LEG LTon [id number] NGUYỄN DOP LEG LTEXAM: US NGUYỄN DOP LEG LT HISTORY: Pain [...] Electronically authenticated by: LUCILA PRABHAKAR Date: 2023-03-15 18:55NoWhite HospitalXR KNEE LT 4V or >on [id number] KNEE LT 4V or >EXAM: XR KNEE LT 4V or > HISTORY: [...] Electronically authenticated by: NAVEEN AZAR Date: 2023-03-15 19:13NoWhite HospitalUS THYROIDon [id number] THYROIDEXAMINATION: US THYROID HISTORY: Non-toxic multinodular goiter COMPARISON: Ultrasound thyroid [...] Electronically authenticated by: NELIA TIJERINA Date: 2023-01-07 13:45[facility] - DublinC3 and C4 COMPLEMENTon 78-16-0046Uedepfjwhy C3, Serum95 mg/dL Svtjko71-262JqlCleveland Clinic Akron General Lodi HospitalComment on above:Performed By: #### HH #### [facility] [address] [address] [address] Kyree Josephplement C4, Serum25 mg/bMKumswa11-47RjyCleveland Clinic [facility] Comment on above:Performed By: #### HH #### [facility] [address] [address] [address] Kyree NealCOMPLEMENT TOTAL (CH50)on 33-81-3672Quzojqtrza, Total (CH50)>60 Normal>41The Cherrington HospitalComment on above:Result Comment: Age Male Female 1 - 30 [...] table above to determine out of range values.Performed By: #### CH50T #### [facility] [address] [address] [address] Kyree Dsouza ANTIBODIESon 76-30-7035XKX Antibodies<0.7Mwajeu2.0-0.9The Cherrington HospitalComment on above:Performed By: #### RNPAB ####[facility] [address] [address]. Kyree McgeeC AUTO DIFF on 97-13-2597GJCA #0.1 103/ulNormal0.0-0.1The Cherrington HospitalComment on above: Performed By: #### SEDR #### [facility] [address] [address] [address] Kyree NealBasophils/100 WBC (Bld)1.2 %Normal0.2-2.0[facility] Comment on above:Performed By: #### SEDR #### [facility] [address] [address] [address] Kyree Jackson #0.6 103/ulNormal0.0-0.7The [facility]rington HospitalComment on above: Performed By: #### SEDR #### [facility] [address] [address] [address] Kyree Cooperosinophils/100 WBC (Bld)6.3 %Normal0.9-7.0[facility] Comment on above:Performed By: #### SEDR #### [facility] [address] [address] [address] Kyree Cooperrythrocyte distribution width (RBC) [Ratio]13.5 %Kwhpll99.0-15.0 The Cherrington HospitalComment on above:Performed By: #### SEDR #### [facility] [address] [place] [address] Dr. Kyree NealHematocrit (Bld) [Volume fraction]39.0 %Jkdlrr22.0-48.0The [facility]rington HospitalComment on above:Performed By: #### SEDR #### [facility] [address] [place] [address] Dr. Kyree NealHemoglobin (Bld) [Mass/Vol]12.6 g/nGOopzni85.0-16.0The [facility]rington HospitalComment on above:Performed By: #### SEDR #### [facility] [address] [place] [address] Dr. Kyree King #0.02 10e3/ulNormal0.00-0.03The [facility]rington HospitalComment on above:Performed By: #### SEDR #### [facility] [address] [place] [address] Dr. Kyree King %0.2 %Normal0.0-0.5The Cherrington HospitalComment on above: Performed By: #### SEDR #### [facility] [address] [place] [address] Dr. Kyree Koch #1.9 103/ulNormal1.2-3.8The [facility]rington HospitalComment on above:Performed By: #### SEDR #### [facility] [address] [place] [address] Dr. Kyree Orellanamphocytes/100 WBC (Bld)22.4 %Velyzi11.5-60.0The [facility]rington HospitalComment on above:Performed By: #### SEDR #### [facility] [address] [place] [address] Dr. Kyree LindquistUAL DIFF REQNONormalThe Cherrington HospitalComment on above: Performed By: #### SEDR #### [facility] [address] [place] [address] Dr. Kyree Mota (RBC) [Entitic mass]28.1 meEfljyp26.7-34.0The [facility]rington HospitalComment on above:Performed By: #### SEDR #### [facility] [address] [place] [address] Dr. Kyree Marino (RBC) [Mass/Vol]32.3 g/pLYqxunb66.9-35.2The [facility]rington HospitalComment on above:Performed By: #### SEDR #### [facility] [address] [place] [address] Dr. Kyree MarinoV (RBC) [Entitic vol]87.1 xCYroxjm73.0-99.0The [facility]rington HospitalComment on above:Performed By: #### SEDR #### [facility] [address] [place] [address] Dr. Kyree Powers #0.8 103/ulNormal0.3-0.8The [facility]rington HospitalComment on above:Performed By: #### SEDR #### [facility] [address] [place] [address] Dr. Kyree Pintoocytes/100 WBC (Bld)9.0 %Normal1.7-12.0[facility] Comment on above:Performed By: #### SEDR #### [facility] [address] [place] [address] Dr. Kyree Sparks #5.3 103/ulNormal1.4-6.5The [facility]rington HospitalComment on above:Performed By: #### SEDR #### [facility] [address] [place] [address] Dr. Kyree Lebronutrophils/100 WBC (Bld)60.9 %Tnwtsq65.0-75.0The [facility]rington HospitalComment on above:Performed By: #### SEDR #### [facility] [address] [place] [address] Dr. Kyree Friendlet mean volume (Bld) [Entitic vol]9.7 fLNormal9.5-13.5The Cherrington HospitalComment on above:Performed By: #### SEDR #### [facility] [address] [address] [address] Kyree NealPLT232 103/cmEdrial088-506Kud Cherrington HospitalComment on above: Performed By: #### SEDR #### [facility] [address] [address] [address] Kyree NealRBC4.48 106/ulNormal4.20-5.40The Cherrington HospitalComment on above:Performed By: #### SEDR #### [facility] [address] [address] [address] Kyree NealWBC8.7 103/ulNormal4.0-11.0The Cherrington HospitalComment on above: Performed By: #### SEDR #### [facility] [address] [address] [address] Kyree Reddy 31-32-3436LAF9.8 mg/dLCritically high<=1.0The [facility]rington HospitalComment on above:Performed By: #### CRP, CMP ####[facility] [address] [address]Dr. Kyree NealPROF 14(COMP METB)on 68-33-2074Augpuqt [Mass/Vol]3.6 g/dLNormal3.4-5.0[facility] Comment on above:Performed By: #### CRP, CMP ####[facility] [address] [address]Dr. Kyree Neal Albumin/Globulin [Mass ratio]1.0 {ratio}NormalThe Cherrington HospitalComment on above:Performed By: #### CRP, CMP ####[facility] [address] [address]Dr. Kyree NealALP [Catalytic activity/Vol]75 U/L Bxojyq55-848Xtc [facility]rington HospitalComment on above:Performed By: #### CRP, CMP ####[facility] [address] [address]Dr. Kyree NealALT [Catalytic activity/Vol]17 U/ZIxpdfs96-86Qki [facility] Comment on above:Performed By: #### CRP, CMP ####[facility] [address] [place], [place] [address]Dr. Yilan ChangAnion gap [Moles/Vol]11.8 mmol/LNormalThe [facility]rington HospitalComment on above:Performed By: #### CRP, CMP ####[facility] Znhdfymcxc[address] [place], [place] [address]Dr. Yilan ChangAST [Catalytic activity/Vol]19 U/FEyoqpu19-37Yux [facility] HospitalComment on above:Performed By: #### CRP, CMP ####[facility] Ovib[address] [place], [place] [address]Dr. Yilan Neal Bilirubin [Mass/Vol]0.6 mg/dLNormal0.2-1.0The [facility]rington HospitalComment on above: Performed By: #### CRP, CMP ####[facility] M[address]qh[address]nsk[address] [place], [place] [address]Dr. Yilan ChangCalcium [Mass/Vol]9.2 mg/dLNormal 8.5-10.1The [facility]rington HospitalComment on above:Performed By: #### CRP, CMP ####[facility] [address]zztqmf[address] [place], [place] [address]Dr. Yilan ChangChloride [Moles/Vol]99 mmol/XChkvwy99-126Pww [facility] HospitalComment on above:Performed By: #### CRP, CMP ####[facility] D[address] [place], [place] [address]Dr. Yilan ChangCO2 [Moles/Vol]30.5 mmol/LNormal 21.0-32.0The [facility]rington HospitalComment on above:Performed By: #### CRP, CMP ####[facility] [address] [place], [place] [address]Dr. Yilan ChangCreatinine [Mass/Vol]1.03 mg/dLCritically high0.55-1.02The [facility] HospitalComment on above:Performed By: #### CRP, CMP ####[facility] Yjcysnabx[address] [place], [place] [address]Dr. Yilan ChangEGFR-AF IVORIAN>60Normal>=60The [facility]rington HospitalComment on above:Performed By: #### CRP, CMP ####[facility] [address]iz[address] [place], [place] [address]Dr. Yilan ChangEGFR-NON AF SGUQQTXU40 mL/min/1.90z9Qzhlkniaey low>=60The [facility] HospitalComment on above:Performed By: #### CRP, CMP ####[facility] R[address]af[address] [place], [place] [address]Dr. Yilan Neal Globulin (S) [Mass/Vol]3.6 g/dLNormalThe [facility]rington HospitalComment on above: Performed By: #### CRP, CMP ####[facility] [address]okd[address]olw[address] [place], [place] [address]Dr. Yilan ChangGlucose [Mass/Vol]97 mg/rYNxonxe36-841 The [facility] HospitalComment on above:Performed By: #### CRP, CMP ####[facility] Znzzvedpos[address] [place], [place] [address]Dr. Yilan Neal Potassium [Moles/Vol]3.3 mmol/LCritically low3.5-5.1The [facility] HospitalComment on above:Performed By: #### CRP, CMP ####[facility] [address]zreol[address] [place], [place] [address]Dr. Yilan ChangProtein [Mass/Vol]7.2 g/dLNormal 6.4-8.2The [facility] HospitalComment on above:Performed By: #### CRP, CMP ####[facility] [address] [place], [place] [address]Dr. Yilan ChangSodium [Moles/Vol]138 mmol/WDdsspg470-703Afu [facility] HospitalComment on above:Performed By: #### CRP, CMP ####[facility] V[address]inx[address] [place], [place] [address]Dr. Yilan ChangUrea nitrogen [Mass/Vol]28.0 mg/dL Critically high7.0-18.0The [facility] HospitalComment on above:Performed By: #### CRP, CMP ####[facility] [address] [address]. Kyree Douglas nitrogen/Creatinine [Mass ratio]27.2 mg/mgNoalThe [facility] HospitalComment on above:Performed By: #### CRP, CMP ####[facility] [address] [address]Dr. Kyree NealSED RATE WESTERGRENon 86-08-1013CMF RATE92 mm/hrCritically high<=30The [facility] HospitalComment on above:Performed By: #### SEDR #### [facility] [address] [address] [address] Kyree Brown RANDOM W/MICROSCOPICon 30-40-7100ZBHRFXSQZXMQ SEENNormalNONE SEENCleveland Clinic Akron General Lodi HospitalComment on above:Performed By: #### HH #### [facility] [address] [address] [address] Kyree Nair Ql (U)NegativeNormalNEGATIVEThe [facility] Comment on above:Performed By: #### HH #### [facility] [address] [address] [address] Kyree NealCASTRIO SEENNormalNONE SEENCleveland Clinic [facility]ron General Lodi HospitalComment on above:Performed By: #### HH #### [facility] [address] [address] [address] Kyree Allred (U)CLEARNormalCLEARCleveland Clinic [facility] HospitalCommclaren caro region on above: Performed By: #### HH #### [facility] [address] [address] [address] Kyree Damico (U)YELLOWNormalYELLOWCleveland Clinic [facility] Lodi HospitalComment on above: Performed By: #### HH #### [facility] [address] [address] [address] Kyree NealCrystals LM Nom (Urine sed)NONE SEENNormalNONE SEENCleveland Clinic Akron [facility] Lodi HospitalComment on above:Performed By: #### HH #### [facility] [address] [address] [address] Adorno ChangEpithelial cells LM Ql (Urine sed)RARENormalNONE SEEN /RAREThe [facility] HospitalComment on above:Performed By: #### HH #### [facility] [address] [address] [address] Kyree NealGlucose Ql (U)NegativeNormalNEGATIVECleveland Clinic Akron General Lodi HospitalComment on above:Performed By: #### HH #### [facility] [address] [address] [address] Kyree NealHemoglobin Ql (U)NegativeNormalNEGATIVEThe [facility] on above:Performed By: #### HH #### [facility] [address] [place] [address] Dr. Kyree NealKetones Ql (U)NegativeNormalNEGATIVECleveland Clinic [facility] Lodi HospitalComment on above:Performed By: #### HH #### [facility] [address] [place] [address] Dr. Kyree NealLEUKOCYTESNegativeNormalNEGATIVECleveland Clinic [facility] General Lodi HospitalComment on above:Performed By: #### HH #### [facility] [address] [place] [address] Dr. Kyree NealMUCOUSNONE SEENNormalNONE SEENCleveland Clinic [facility] Lodi HospitalComment on above:Performed By: #### HH #### [facility] [address] [place] [address] Dr. Kyree NealNitrite Ql (U)NegativeNormalNEGATIVECleveland Clinic Ak[facility] Lodi HospitalComment on above:Performed By: #### HH #### [facility] [address] [place] [address] Dr. Kyree NealpH (U)7.0 [pH]Normal5-9The [facility] HospitalComment on above: Performed By: #### HH #### [facility] [address] [place] [address] Dr. Kyree NealZdgfpDCA1-8Coafvw1-9Zka [facility] HospitalComment on above:Performed By: #### HH #### [facility] [address] [place] [address] Dr. Kyree NealSPEC GRAVITY1.799Fcpucy4.005-<=1.025The [facility] HospitalComment on above:Performed By: #### HH #### [facility] [address] [address] [address] Kyree Brown PROTEINNegativeNormalNEGATIVE/ TRACEThe [facility] Comment on above:Performed By: #### HH #### [facility] [address] [address] [address] Kyree Oviedobilinogen Qn (U)1.0 {Herrera'U}/dLNormal0.2 - 1.0The [facility] HospitalComment on above:Performed By: #### HH #### [facility] [address] [address] [address] Kyree FinneyNONLeydi SEENNormalNONE SEENThe [facility] HospitalComment on above: Performed By: #### HH #### [facility] [address] [address] [address] Kyree Caba identified Anaer cx Nom (Unsp spec)on 54-10-2982Ccpruab HealthGlucose Auto test strip (Bld) [Mass/Vol]on 28-51-9326Inxnfmh [Mass/Vol]93 mg/dL70 - 99 mg/dLTrinity HealthInterpretation and review of laboratory results NormalTrinCorewell Health William [facility] HealthGlucose [Mass/Vol]101 mg/iJRzjc86 - 99 mg/dL Ren[facility] HealthInterpretation and review of laboratory resultsAbnormalPenn State Health [facility] HealthLaboratory - Microbiology and Antimicrobial susceptibilityon 93-89-6480Qxfxbmfy identified Anaer cx Nom (Unsp spec)No anaerobes grown after 4 days.[facility] Rehabilitation HospitalBacteria identified Sterile body fluid culture Nom (Unsp spec)on 18-59-8467Bbwcgkct identified Cx Nom (Body fld)No growth at 3 days Renate HealthGlucose Auto test strip (Bld) [Mass/Vol]on 62-46-6491Qzzqmze [Mass/Vol]133 mg/lCDfvz71 - 99 mg/dLTrinity HealthInterpretation and review of laboratory resultsAbnormalTrinity HealthTrinity HealthGlucose [Mass/Vol]141 mg/iOOwrt04 - 99 mg/dLTrinity HealthInterpretation and review of laboratory resultsAbnormalTrinity HealthTrinity HealthLaboratory - Microbiology and Antimicrobial susceptibilityon 38-49-5821Kjrqbbyu identified Cx Nom (Tiss)No growth at 3 daysTrinity HealthMicroscopic observation Gram stain Nom (Unsp spec) No Polymorphonuclear leukocytesTrinity HealthComment on above:This is an appended report. These results have been appended to a previously preliminary verified report.Microscopic observation Gram stain Nom (Unsp spec)No Epithelial cellsTrinity HealthComment on above:This is an appended report. These results have been appended to a previously preliminary verified report.Microscopic observation Gram stain Nom (Unsp spec)No organisms seenTrinity HealthComment on above:This is an appended report. These results have been appended to a previously preliminary verified report.No Panel Informationon 50-55-6724Tnmmala HealthBasic metabolic 2000 panelon 26-30-0176Siivr gap [Moles/Vol]8 mmol/L6 - 18 [facility] HealthCalcium [Mass/Vol]9.3 mg/dL8.9 - 10.3 mg/dLTrinity HealthChloride [Moles/Vol]107 mmol/L98 - 107 mmol/LTrinity HealthCO2 [Moles/Vol]26 mmol/L22 - 32 mmol/LTrinity HealthCreatinine [Mass/Vol]0.89 mg/dL0.60 - 1.30 mg/dLTrinity HealthGFR/1.73 sq M.predicted among non-blacks MDRD (S/P/Bld) [Vol rate/Area]71 mL/min/{1.73_m2}- PINFTrinity HealthComment on above:Effective July 27, 2022, calculation based on the Chronic Kidney Disease Epidemiology Collaboration (CKD- EPI) equation refit without adjustment for race.Glucose [Mass/Vol]94 mg/dL70 - 99 mg/dLTrinity HealthInterpretation and review of laboratory resultsNormal Renate HealthPotassium [Moles/Vol]4.0 mmol/L3.6 - 5.1 mmol/LTrinity Health Sodium [Moles/Vol]141 mmol/L136 - 145 mmol/LTrinity HealthUrea nitrogen [Mass/Vol]14 mg/dL8 - 20 mg/dLTrinity HealthUrea nitrogen/Creatinine [Mass ratio]15.7 mg/mg12.0 - 20.0Trinity HealthTrinity HealthGlucose Auto test strip (Bld) [Mass/Vol]on 06-31-9895Swzizay [Mass/Vol]125 mg/yZSpum89 - 99 mg/dLGeisinger Encompass Health Rehabilitation HospitalInterpretation and review of laboratory resultsAbnormFirst Hospital [facility] Renate HealthGlucose [Mass/Vol]94 mg/dL70 - 99 mg/dLLitchfield Health Interpretation and review of laboratory resultsNormalP[facility] HealthGlucose [Mass/Vol]93 mg/dL70 - 99 mg/dLTrinmain campus medical center HealthInterpretation and review of laboratory resultsNormJefferson Hospital HealthGlucose [Mass/Vol] 87 mg/dL70 - 99 mg/dLLitchfield HealthInterpretation and review of laboratory resultsNormBeaumont HospitalHemogram and platelets WO differential panel (Bld)on 73-73-2283Pzalpnnmfri distribution width (RBC) [Ratio]13.9 %11.0 - 14.8 %[facility] Rehabilitation HospitalHematocrit (Bld) [Volume fraction]39.6 %34.3 - 47.9 % [facility] HospitalHemoglobin (Bld) [Mass/Vol]12.2 g/dL12.0 - 16.0 g/dLGeisinger Encompass Health Rehabilitation Hospital Interpretation and review of laboratory resultsNormalCrozer-Chester Medical CenterH (RBC) [Entitic mass]27.7 pgTrinTemple University Health SystemHC (RBC) [Mass/Vol]30.8 g/dL30.8 - 35.3 g/dLCrozer-Chester Medical CenterV (RBC) [Entitic vol]90.0 fLTrinmain campus medical center HealthPlatelet mean volume (Bld) [Entitic vol]10.3 fLTrinmain campus medical center HealthPlatelets (Bld) [#/Vol]194 10*3/uLTrinity HealthRBC (Bld) [#/Vol]4.40 10*6/uLTrinity HealthWBC (Bld) [#/Vol]9.2 10*3/uLTrKalkaska Memorial Health Center HealthBasic metabolic 2000 panelon 16-45-8813Hcdak gap [Moles/Vol]9 mmol/L6 - 18Trinmain campus medical center HealthCalcium [Mass/Vol]9.0 mg/dL8.9 - 10.3 mg/dLTrinmain campus medical center HealthChloride [Moles/Vol]105 mmol/L98 - 107 mmol/LTrinity HealthCO2 [Moles/Vol]25 mmol/L22 - 32 mmol/LTrinity Health Creatinine [Mass/Vol]0.97 mg/dL0.60 - 1.30 mg/dLTrinity HealthGFR/1.73 sq M.predicted among non-blacks MDRD (S/P/Bld) [Vol rate/Area]64 mL/min/{1.73_m2}- PINFTencompass health rehabilitation hospital of nittany valley HealthComment on above:Effective July 27, 2022, calculation based on the Chronic Kidney Disease Epidemiology Collaboration (CKD-EPI) equation refit without adjustment for race.Glucose [Mass/Vol]132 mg/uGPian80 - 99 mg/dL [facility] HealthInterpretation and review of laboratory resultsAbnormalTrinity HealthPotassium [Moles/Vol]4.6 mmol/L3.6 - 5.1 mmol/LTrinity HealthSodium [Moles/Vol]139 mmol/L136 - 145 mmol/LTrinity HealthUrea nitrogen [Mass/Vol]19 mg/dL8 - 20 mg/dLTrinity HealthUrea nitrogen/Creatinine [Mass ratio]19.6 mg/mg 12.0 - 20.0Trinity HealthTrinity HealthGlucose Auto test strip (Bld) [Mass/Vol] on 07-74-0864Ufogstc [Mass/Vol]122 mg/rEBcfp17 - 99 mg/dLTrinity Health Interpretation and review of laboratory resultsAbnormalTrinity HealthTrinity HealthGlucose [Mass/Vol]150 mg/tOWkre58 - 99 mg/dLTrinity HealthInterpretation and review of laboratory resultsAbnormalTrinity HealthTrinity HealthGlucose [Mass/Vol]116 mg/wNDchs64 - 99 mg/dLTrinity HealthInterpretation and review of laboratory resultsAbnormalTrinity HealthTrinity HealthGlucose [Mass/Vol]115 mg/mHNkvc60 - 99 mg/dLTrinity HealthInterpretation and review of laboratory resultsAbnormalTrinity HealthTrinity HealthHemogram and platelets WO differential panel (Bld)on 85-01-6188Fayowpafeds distribution width (RBC) [Ratio]13.9 %11.0 - 14.8 %[facility] HealthHematocrit (Bld) [Volume fraction]40.6 % 34.3 - 47.9 %[facility] HealthHemoglobin (Bld) [Mass/Vol]13.0 g/dL12.0 - 16.0 g/dL [facility] HospitalInterpretation and review of laboratory resultsNormalCrozer-Chester Medical CenterH (RBC) [Entitic mass]28.8 pgCrozer-Chester Medical CenterHC (RBC) [Mass/Vol]32.0 g/dL30.8 - 35.3 g/dLCrozer-Chester Medical CenterV (RBC) [Entitic vol]89.8 [facility] Platelet mean volume (Bld) [Entitic vol]10.0 [facility] CenterPlatelets (Bld) [#/Vol]243 10*3/[facility]burgRBC (Bld) [#/Vol]4.52 10*6/[facility] HarrisburgWBC (Bld) [#/Vol]10.2 10*3/[facility] HealthPathology studyOrdered By: Nathaniel Morel on 36-71-2700Dboprfzr Jeff (Reference lab test) q9awyGSkCXQrkTJhKZCyYtdexlBaCLVpbURcF2XsxrsiAEayXU9rII2fwLvuxMEkpLHfNFIwUdUgr4hc p443rPVmw6ehVBTLttln oVc6g2djCKKZLAltHELKUYa5eUbfD55na5X2GzgpZ2pxMRSzWAaaqgDbwkP0RPGipNBnHQu9AJRnpYNl dzEyMjQwXHBhcGVyaDE1 FNPhUS9zinbeJJklFMmhSKZvejH2PMUlnSGnL3WsAQXiTX6oacqzYYR3PWibVOObOEU5RzFvJJRgy8Gb vtn2QcXenBGuJPsooYTm aqkmXLTwWPWhTJzhT9IuVDJyOWP6PFNjvbsvHLkhO87qpE5oJQ58ZGodbxTbHDVas0XoQHJdEYYwFEih ACBtshEeBXphmE1dt1h3 JMllAh2iMKQdeiwvHUT2BjRjXI16AvyuhDAsYJUVxlZuOSKcmLVkMpNzCCZAsFifOIZyOrC8WkFKmQFn e0Hyb8JjQiEfnEGdrK7cjWxrdwJ1HWFzsEUsMy8vgNDcGgifGRG3Biswcnd Health Work Phone: Microscopic description Jeff (Endomyocardium) d9klhGOfKTXwoSXKKFZsTANnIG7ejWrrjRo1dMpqTVYnnoF8qKHfHMtjx2fuGBJ7g1hgpoLPIxavMYIu NC7vXIgzVIBdQE5yPcYi OTJnEyWzZDXqwVRmiqZlKlKhNSJztBWsyHO0WAUcSB4tbyhpXAigFVuqLVFjipO4GQMxoRHqK1TyXWLd NM4fcbzwQWR1OHTNFiej Gy1qiFTggNXNOfkuSaWqYuUdQKRxBSJfROUhmGxpVHCiPHl5gR8Fh7qdRdlkQ7dfitDtySSxOd3lpCRH MFriAGXOWDv4cF1WCKLz I6CbOR4Vp7nvUATwcTCwNJX2YTpfk3yzAOypSTT0KECzNAMnRLOdJU4CHyJfZRV3KcL2PGF6QbV1OFa2 YKUJMWQyNnj0YbGqBCa6 BLz1NXvlakhcDAb0SOIyLQhhlPAeTT1ebWvkNdgmuXcev9KxsGDeAJLtPSpvlQNoOWKuABUqCMkgFoSB ClPoJjVdPlS8FmY7OtYu TVh1NSfmJ0GLJKJrVLH6RAw7IwI1EcK2NZw1UGXIRq7ySrEgTCo1EYl6GEU1RMC8AzWaCSJuHeAoRGWi LHMgCNoapVOoPC8gnFpk NMEaCC8HACKhHGgsYMCbWWArWjElXB9hL52cTIrwOPCipKstTjLqPDPbcXLczCEbdAObm2I0rRBpCUv0 qWLho3Q5kLlrPJvrXhas yNEhmAYqXciwWBDlBIppfUYoOHUJVoingDVjkmkxKTdgtdGaXHKlPGetUGq0uwUhQOWwEkMlGNKcI55r a0QNb8JlXJ7SHJo8elBy gutaoP8gIROtrpCjFTbnPhRjWoLiGROBLLRkiDRcIORmpxYhc0CzSTxprfDtVGDzsWMdRYqoxTmtgEI6 mICnzOOfOG7cIEPrTTWa MQapCoIou13kSVZyyVBtHXP2IUEsEUHaF1HeV0Q1NXSoYfTswJWjtrOwrNWglL5wwms6uF1gGEUrFUTj xUHcgP6mfcXinwXhEZG1 vP3cPFKdGX6uAUTbvGXoh7WzqAH9pEAkmBzpa5ClvIq1kJVyBAgeEESif3BwTSDeMzdsAHRzVFgyrYAg XD5FDZYrUjVnSWIvQ4ol OVLqTB2JWLyglxqVQlxsYPEcPFAjO3dnNDNaVHfmMEYmJ21gf7GAz6Xxx6kylZlmt9YjhJSkLX74GITf uUOvTXL0DF1gvUuxZWRaBFizToGoTgDnWsWFPz9=[facility] Work Phone: Pathology report final diagnosis Narrative r1hbdMXvBRCdxFYxGXKfMjespaBgVODtiPCaU0HbuqxcDEunYY1pWV8sySazgOBbdEHiJGHbDtBoa2ww q570yTUjy4wbBGLKjnfq mSb9wGurY82gz4Y1YfefI4yxLLMjOBubPKLeOIabyPTzPXz1MJWqyVGnusEzEmAcDGVyxYSggGH9OVWh QG0oclaaMRpuQObsFXKb yzC8YNDbvAViD5UoGCZiQS8lbbmfEUF8UDmyNACwJFZ7WcDvOEVrf0Qopep2JrVnnXp0i2gpVTZtVADg vAjcl9bfLIP0QFDxhWGc P5euqO2cHEMoWL3dhosem0nyGWuiZRtlUZLmbCS6xjA3INQxpABqI4DpmC8iXUSoMFZmpsVvxDfnLdB9 WFwxzUWghnudSgAuP96k qXJ5tRWdwWNySVmoWiKmd26gNJcmnBRfNRHrDYUQCItyoCc5ZZFqo7Qez8rivjxgsAYnrnAxzZFqiFCb k4O4aXDiBLWcdw4skLFzpY5mxGFemOU3tK0yTpykQXH4Qpbfjrc Health Work Phone: [employer] Work Phone: Cell count panel (Body fld)Ordered By: Navin Tracy on 75-80-5830Aeiczxk (Body fld)HazyTrinImmunoPhotonics HealthColor (Body fld)YellowTrinMingleboxRBC Auto (Body fld) [#/Vol]5000 /yc7Ycftpvp SealedMediaComment on above:The reference range and other method performance specifications have not been established for this fluid specimen. The test result should be integrated into the clinical context for interpretation.Specimen source Nom (Body fld)Synovial TraktoPROWBC (Body fld) [#/Vol]167 /nv1Dmnxtsw HealthCommclaren caro region on above:The reference range and other method performance specifications have not been established for this fluid specimen. The test result should be integrated into the clinical context for interpretation.TraktoPRODifferential panel (Body fld)on 93-53-8909Rlbbppzsqqz/100 WBC Manual cnt (Body fld)71.0 %[employer] Monocytes+Macrophages/100 WBC (Body fld)17.0 %[facility]ate HealthNeutrophils/100 WBC (Body fld)3.0 %[facility] HealthOther cells/100 WBC (Body fld)9.0 %[facility] Comment on above:Lining cellsTrinity HealthGlucose Auto test strip (Bld) [Mass/Vol]on 32-05-1941Tdoswkh [Mass/Vol]188 mg/hIXazh52 - 99 mg/dLTrinmain campus medical center HealthInterpretation and review of laboratory resultsAbnormalLitchfield Health Renate HealthGlucose [Mass/Vol]121 mg/yPWizo17 - 99 mg/dLTrinmain campus medical center Health Interpretation and review of laboratory resultsAbnormalTrinmain campus medical center HealthTrinmain campus medical center HealthGlucose [Mass/Vol]78 mg/dL70 - 99 mg/dLTrinity HealthInterpretation and review of laboratory resultsNormalPenn [facility] HealthGlucose [Mass/Vol] 120 mg/oPPyao61 - 99 mg/dLTrinmain campus medical center HealthInterpretation and review of laboratory resultsAbnormalPenn State Health [facility] YduagiJGIJ-TjC-8 (COVID-19) RNA TORRES+probe Ql (Resp)on 81-43-3100Ikwbrzhzxwyfbf and review of laboratory resultsNormal [facility] HospitalUmywgdUJNT-LkZ-0 (COVID-19) RdRp gene TORRES+probe Ql (Resp)Not detectedNot DetectedTrinCorewell Health [facility] HealthXR Knee 1-2 Views Lefton . Left total knee arthroplasty in appropriate position. -------- FINAL REPORT -------- Dictated By: Vlad Fiore Dictated Date: 10/02/2022 15:21 Assigned Physician: Vlad Fiore Reviewed and Electronically Signed By: Vlad Fiore Signed Date: 10/02/2022 15:22 Workstation ID: [id number] Transcribed By: Self Edit Transcribed Date: 10/02/2022 15:21 POWERSCRIBEEXAMINATION TYPE: XR KNEE 1-2 VIEWS LEFT DATE OF EXAM : 10/02/2022 1:29 PM HISTORY: post op in pacu, COMPARISON: NONE FINDINGS: Status post left total knee arthroplasty. Hardware in appropriate position. Gas within and adjacentto the knee joint. Spurring from the patella. There our a few loose bodies in the joint. Skin almita in place. No acute fracture or dislocation. Vlad Adkins MD - 10/02/2022 EXAMINATION TYPE: XR KNEE [...] By: Self Edit Transcribed Date: 10/02/2022 15:21 [facility] HospitalRadiology Study observation (narrative)[facility] HospitalXR Knee 1-2 Views LeftOrdered By: Vlad Fiore on 98-33-3812Fnktccy [employer] Work Phone: Office Visit (Cardiology)on 58-18-0466Wptmvz-up visit Diagnoses/Problems Assessed Chronic right-sided congestive heart [...] Weight Tips; Status:Complete - Retrospective Authorization; Done: [id number] Some eating tips that can help you lose weight.; Status:Complete - Retrospective Authorization; Done: [id number] SocHx: Former smoker Tobacco Use Screening; Status:Complete; Done: [id number] Patient Instructions Please bring all medicines, vitamins, [...] up in 1 year. Chief Complaint RENUKA PADRON is being seen for an annual follow-up [...] implantable device. 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 Encarnacion 5. I reviewed her recent [...] 160-4.5 MCG/ACT Inhalation AerosolUSE (more content not included)...NormalUH TouchworksTobacco Screening.on 65-05-7490Mjmh risk assessmenta) No falls within the last year-[facility] [place] [employer] 250 DO Work Phone: Tobacco use status CPHSb) NoMP-[facility] Pro Breath MD 250 DO Work Phone: Tobacco Screening.YesMP-[facility] [place] 250 DO Work Phone: pth INTACTon 06-96-8164IXT, Oaburh84 pg/rQRejpnn30-88 The [facility] HospitalComment on above:Performed By: #### PTHINT ####[facility] [address] [address]Dr. Kyree Neal HEMOGRAM AND PLATELon 76-04-7164Ahdervsfzv (Bld) [Volume fraction]38.4 %Normal 36.0-48.0The [facility]rington HospitalComment on above:Performed By: #### HH #### [facility] [address] [place] [address] Dr. Kyree NealHemoglobin (Bld) [Mass/Vol]12.2 g/kACziapd41.0-16.0The [facility]rington HospitalComment on above:Performed By: #### HH #### [facility] [address] [place] [address] Dr. Kyree Marino (RBC) [Entitic mass]28.6 pjYsyixi18.7-34.0The [facility]rington HospitalComment on above:Performed By: #### HH #### [facility] [address] [place] [address] Dr. Kyree Marino (RBC) [Mass/Vol]31.8 g/aXVnchdx87.9-35.2The [facility] HospitalComment on above:Performed By: #### HH #### [facility] [address] [place] [address] Dr. Kyree Marino (RBC) [Entitic vol]89.9 iULmivsg06.0-99.0The [facility] HospitalComment on above:Performed By: #### HH #### [facility] [address] [place] [address] Dr. Kyree NealPLT250 103/mzGnvtut354-737Ame [facility] HospitalComment on above: Performed By: #### HH #### [facility] [address] [place] [address] Dr. Kyree NealRBC4.27 106/ulNormal4.20-5.40The [facility]rington HospitalComment on above:Performed By: #### HH #### [facility] [address] [address] [address] Kyree NealWBC7.7 103/ulNormal4.0-11.0The [facility]rington HospitalComment on above: Performed By: #### HH #### [facility] [address] [address] [address] Kyree NealMAGNESIUMon 58-70-9951Ntjuvvihk [Mass/Vol]2.2 mg/dLNormal1.8-2.4 The [facility] HospitalComment on above:Performed By: #### URIC, CMP, MG ####[facility] [address] [address]Dr. Kyree NealPROF 14(COMP METB)on 67-21-9452Jvugcnb [Mass/Vol]3.5 g/dLNormal 3.4-5.0The [facility] HospitalComment on above:Performed By: #### URIC, CMP, MG ####[facility] [address] [address]Dr. Kyree NealAlbumin/Globulin [Mass ratio]0.9 {ratio}NormalThe [facility] Comment on above:Performed By: #### URIC, CMP, MG ####[facility] [address] [address]Dr. Kyree NealALP [Catalytic activity/Vol]61 U/TOdqruz72-597Sqq [facility] Hospitalment on above:Performed By: #### URIC, CMP, MG ####[facility] [address] [address]Dr. Kyree NealALT [Catalytic activity/Vol]23 U/L Dqbtky18-57Ukf [facility] Hospitalment on above:Performed By: #### URIC, CMP, MG ####[facility] [address] [address]Dr. Kyree NealAnion gap [Moles/Vol]9.9 mmol/LNormalThe [facility] HospitalComment on above:Performed By: #### URIC, CMP, MG ####[facility] [address] [address]Dr. Yilan ChangAST [Catalytic activity/Vol]21 U/UKrvayi91-23Fic [facility] HospitalComment on above:Performed By: #### URIC, CMP, MG ####[facility] [address] [address]Dr. Yilan ChangBilirubin [Mass/Vol]0.3 mg/dLNormal0.2-1.0The [facility] HospitalComment on above:Performed By: #### URIC, CMP, MG ####[facility] [address] [place], [place] [address]Dr. Yilan ChangCalcium [Mass/Vol]9.0 mg/dLNormal8.5-10.1The [facility] HospitalComment on above:Performed By: #### URIC, CMP, MG ####[facility] Oj[address] [place], [place] [address]Dr. Yilan ChangChloride [Moles/Vol]106 mmol/LNormal 98-107The [facility] HospitalComment on above:Performed By: #### URIC, CMP, MG ####[facility] [address] [place], [place] [address]Dr. Yilan ChangCO2 [Moles/Vol]29.4 mmol/ENmqohs38.0-32.0The [facility] HospitalComment on above:Performed By: #### URIC, CMP, MG ####[facility] [address] [place], [place] [address]Dr. Yilan ChangCreatinine [Mass/Vol]0.90 mg/dLNormal0.55-1.02The [facility] HospitalComment on above:Performed By: #### URIC, CMP, MG ####[facility] [address] [place], [place] [address]Dr. Yilan ChangEGFR-AF IVORIAN>60Normal>=60[facility] Comment on above:Performed By: #### URIC, CMP, MG ####[facility] [address] [place], [place] [address]Dr. Yilan ChangEGFR-NON AF IVORIAN>60Normal>=60The [facility] Hospitalment on above:Performed By: #### URIC, CMP, MG ####[facility] [address] [address]Dr. Yilan ChangGlobulin (S) [Mass/Vol]3.8 g/dLNormOhioHealth O'Bleness HospitalComment on above:Performed By: #### URIC, CMP, MG ####[facility] [address] [address]Dr. Yilan ChangGlucose [Mass/Vol]89 mg/kJQxhxvf00-456Kri [facility] HospitalCommclaren caro region on above:Performed By: #### URIC, CMP, MG ####[facility] [address] [place], [place] [address]Dr. Yilan ChangPotassium [Moles/Vol]4.3 mmol/LNormal 3.5-5.1The [facility] HospitalCommclaren caro region on above:Performed By: #### URIC, CMP, MG ####[facility] [address] [place], [place] [address]Dr. Yilan ChangProtein [Mass/Vol]7.3 g/dLNormal6.4-8.2The [facility] HospitalCommclaren caro region on above:Performed By: #### URIC, CMP, MG ####[facility] [address] [address]Dr. Yilan ChangSodium [Moles/Vol]141 mmol/L Zkwkgf020-918Dxp [facility] on above:Performed By: #### URIC, CMP, MG ####[facility] [address] [address]Dr. Yilan ChangUrea nitrogen [Mass/Vol]18.0 mg/dLNormal7.0-18.0The [facility] HospitalComment on above:Performed By: #### URIC, CMP, MG ####[facility] [address] [address]Dr. Yilan ChangUrea nitrogen/Creatinine [Mass ratio]20.0 mg/mgNoWhite HospitalComment on above:Performed By: #### URIC, CMP, MG ####[facility] [address] [address]Dr. Kyree Wang 14-04-6899Qxxwracjf Ql (U)NegativeNormalNEGATIVECleveland Clinic Akron General Lodi HospitalComment on above:Performed By: #### SEDR #### [facility] [address] [address] [address] Kyree NealClarity (U)CLEARNormalCLEARCleveland Clinic Akron General Lodi HospitalComment on above: Performed By: #### SEDR #### [facility] [address] [address] [address] Kyree Fordlor (U)YELLOWNormalYELLOWCleveland Clinic Akron General Lodi HospitalComment on above: Performed By: #### SEDR #### [facility] [address] [address] [address] Kyree NealGlucose Ql (U)NegativeNormalNEGATIVECleveland Clinic Akron General Lodi HospitalComment on above:Performed By: #### SEDR #### [facility] [address] [address] [address] Kyree NealHemoglobin Ql (U)NegativeNormalNEGWilson Street Hospital on above:Performed By: #### SEDR #### [facility] [address] [address] [address] Kyree NealKetones Ql (U)NegativeNormalNEGATIVECleveland Clinic Akron General Lodi HospitalComment on above:Performed By: #### SEDR #### [facility] [address] [address] [address] Kyree NealLEUKOCYTESNegativeNormalNEGATIVECleveland Clinic Akron General Lodi HospitalCommclaren caro region on above:Performed By: #### SEDR #### [facility] [address] [address] [address] Kyree NealNitrite Ql (U)NegativeNormalNEGATIVECleveland Clinic Akron General Lodi HospitalComment on above:Performed By: #### SEDR #### [facility] [address] [address] [address] Kyree NealpH (U)5.5 [pH]Normal5-9The [facility] HospitalComment on above: Performed By: #### SEDR #### [facility] [address] [address] [address] Kyree NealSPEC GRAVITY1.005Zfeleo0.005-<=1.025The [facility]rington HospitalComment on above:Performed By: #### SEDR #### [facility] [address] [address] [address] Kyree Brown PROTEINNegativeNormalNEGATIVE/ TRACEThe [facility] Comment on above:Performed By: #### SEDR #### [facility] [address] [address] [address] Kyree Oviedobilinogen Qn (U)0.2 {Herrera'U}/dLNormal0.2 - 1.0The [facility] HospitalComment on above:Performed By: #### SEDR #### [facility] [address] [address] [address] Kyree NealURIC ACID SERUMon 85-76-1467Rzrox [Mass/Vol]3.7 mg/dLNormal 2.6-6.0The [facility] HospitalComment on above:Performed By: #### URIC, CMP, MG ####[facility] [address] [place], [place] [address]DrDulce NealURINE T PROTEIN CREAT RATIOon 04-03-3979Kkbzydq (U) [Mass/Vol]11.1 mg/dLNormal<=12.0The [facility] HospitalComment on above:Performed By: #### URTPCR ####[facility] [address] [place], [place] [address]Dr. Kyree NealUR PROT CREAT RAT0.18NormalThe [facility]rington HospitalComment on above: Performed By: #### URTPCR ####[facility] [address] [place], [place] [address]Dr. Kyree NealURINE CREAT62.29 mg/dLNormal 20.00-300.00The [facility] HospitalComment on above:Performed By: #### URTPCR ####[facility] [address] [place], [place] [address]PrDr. Kyree NealVITAMIN D 25 OHon 31-54-2309BAE D 25-OH57.7 ng/mLNCentervilleComment on above:Performed By: #### HH #### [facility] [address] [place], [place] [address] Dr. Kyree Goldman RANGESSEE Chillicothe HospitalComment on above: Result Comment: <20 ng/mL Vit D deficient 20 - <30 ng/mL Vit D insufficient 30 - 100 ng/mL Vit D sufficient >100 ng/mL Potential ToxicityPerformed By: #### HH #### [facility] [address] [address] [address] Kyree NealA1C HEMOGLOBINon 54-84-0359CtI6t (Bld) [Mass fraction]5.7 %[employer] Other HbA1c (Bld) [Mass fraction]on 37-95-5453Y5Q HEMOGLOBIN [employer] Other Urine culture routineOrdered By: Deidra Lee on 50-61-9851Tvuvridu identified Cx Nom (U)Escherichia coliWood County HospitalAutomated erythrocytes count in urine sediment (number/area) Ordered By: Deidra Silvaimore on 48-81-0022MEK Auto (Urine sed) [#/Area]10-19 [HPF]0-4FSelect Medical Specialty Hospital - AkronAutomated leukocytes count in urine sediment (number/area)Ordered By: Deidra Bullimore on 62-94-9210LVO Auto (Urine sed) [#/Area]20-49 [HPF]0-4FSelect Medical Specialty Hospital - AkronBilirubin Test strip Ql (U)Ordered By: Deidra Bullimore on 77-02-0767Tyywtopgt Ql (U)Negative NegativeWood County HospitalColor Auto (U)Ordered By: Deidra Bullimore on 36-98-6090Bltab (U)YellowYellowWood County Hospital Ketones Auto test strip (U) [Mass/Vol]Ordered By: Deidra Bullimore on 05-27-2022 Ketones (U) [Mass/Vol]NegativeNegativeWood County Hospital Laboratory - UrinalysisOrdered By: Deidra Lee on 35-51-3020Rygksxi casts LM Ql (Urine sed)0-8 [LPF]0-8Wood County HospitalNitrite Test strip Ql (U)Ordered By: Deidra Silvaimore on 68-34-8065Orzrqxb Ql (U)NegativeNegative [facility] HospitalProtein Auto test strip (U) [Mass/Vol]Ordered By: Deidra Silvaimore on 29-03-2331Gjyxkop (U) [Mass/Vol]NegativeNegative [facility] Hospitalpecific gravity Auto test strip (U) [Rel density]Ordered By: Deidra Lee on 40-26-8713Vuryfchy gravity (U) [Rel density]1.0071.001-1.030The Christ Hospitalquamous epithelial cells detection in urine sediment by light microscopyOrdered By: Deidra Lee on 50-94-6727Yztjhgyphx cells.squamous LM Ql (Urine sed)None seen [HPF]0-2FSelect Medical Specialty Hospital - AkronUrine bacteria detection by automated methodOrdered By: Deidra Lee on 80-23-1072Vipfbyat Auto Ql (U)2+None Seen [facility] HospitalUrine clarity by refractometry automatedOrdered By: Deidra Lee on 91-77-4051Equirvx Refractometry automated (U)ClearClear [facility] HospitalUrine glucose measurement by automated test strip (mass/volume)Ordered By: Deidra Lee on 73-94-4765Caaebzu Auto test strip (U) [Mass/Vol]Normal mg/dLNormNationwide Children's HospitalUrine hemoglobin detection by automated test stripOrdered By: Deidra Lee on 84-79-1301Tkfhxousya Auto test strip Ql (U)2+[facility] HealthUrine leukocyte esterase detection by automated test stripOrdered By: Deidra Silvaimore on 29-79-7360Cfsfynyzx esterase Auto test strip Ql (U)3+ NegativeWood County HospitalUrobilinogen Auto test strip (U) [Mass/Vol]Ordered By: Deidra Silvaimore on 74-08-5771Ykrrhfbokaca (U) [Mass/Vol] Normal mg/dLNormalWood County HospitalpH Auto test strip (U)Ordered By: Deidra Lee on 26-22-8580wG (U)5.5 [pH]5.0-9.0[facility] HospitalBasophils Auto (Bld) [#/Vol]Ordered By: Peter Sosa on 61-38-4750Fdeibqzro (Bld) [#/Vol]0.1 10*3/uL0.0-0.2FSelect Medical Specialty Hospital - AkronBasophils/100 WBC Auto (Bld)Ordered By: Peter Sosa on 05-21-2022 Basophils/100 WBC (Bld)0.8 %.[facility] HospitalBlood hemoglobin measurement (mass/volume)Ordered By: Peter Sosa on 11-58-6749Gikhgvfheh (Bld) [Mass/Vol]12.8 g/dL11.8-15.4FSelect Medical Specialty Hospital - AkronBlood leukocytes automated count (number/volume)Ordered By: Peter Sosa on 00-31-1960TXJ (Bld) [#/Vol]8.5 10*3/uL4.5-11.0[facility] Body fluid albumin measurement (mass/volume)Ordered By: Peter Sosa on 55-60-1940Fzbdceo (Body fld) [Mass/Vol]3.7 g/dL3.2-5.5FSelect Medical Specialty Hospital - AkronCholesterol [Mass/volume] in Serum or PlasmaOrdered By: Peter Sosa on 75-44-7457Ayqzmyrafau [Mass/Vol]204 mg/mA157-443XuoozwjjrWood County HospitalComment on above:Chol less than 200 mg/dl low risk Chol 201-239 mg/dl borderline risk Chol 240 mg/dl and greater high riskCholesterol in LDL Calc [Mass/Vol]Ordered By: Peter Sosa on 61-66-4689Pigstfbxiow in LDL [Mass/Vol]129 mg/dL0-100 [facility] HospitalComment on above:LDL ATP III CLASSIFICATION LDL less than 100 mg/dL Optimal LDL 100-129 mg/dL Near or above optimal LDL 130-159 mg/dL Borderline high LDL 160-189 mg/dL High LDL greater than 189 mg/dL Very highCholesterol in VLDL Calc [Mass/Vol]Ordered By: Peter Sosa on 10-49-1598Zdvbmhreaic in VLDL [Mass/Vol]20 mg/dLWood County HospitalCreatinine [Mass/volume] in UrineOrdered By: Peter Sosa on 39-43-0851Wfeunyobne (U) [Mass/Vol]185.2 mg/dLWood County HospitalComment on above:No reference range establishedCreatinine and Glomerular filtration rate.predicted panel (S/P/Bld)Ordered By: Peter Sosa on 03-18-9357Xusnqnfkgg [Mass/Vol]1.31 mg/dL0.44-1.03[facility] HospitalEosinophils Auto (Bld) [#/Vol]Ordered By: Peter Sosa on 05-21-2022 Eosinophils (Bld) [#/Vol]0.3 10*3/uL0.0-0.45[facility] Eosinophils/100 WBC Auto (Bld)Ordered By: Peter Sosa on 05-21-2022 Eosinophils/100 WBC (Bld)3.4 %.[facility] HospitalErythrocyte distribution width Auto (RBC) [Ratio]Ordered By: Peter Sosa on 05-21-2022 Erythrocyte distribution width (RBC) [Ratio]14.8 %11.9-15.3FSelect Medical Specialty Hospital - AkronEstimated glomerular filtration rate (GFR) non- Ordered By: Peter Sosa on 22-00-6920XDR/1.73 sq M.predicted among non-blacks MDRD (S/P/Bld) [Vol rate/Area]41 mL/MinWood County HospitalFolate [Mass/volume] in Serum or PlasmaOrdered By: Peter Sosa on 96-59-5800Tdhvka [Mass/Vol]ng/mL>5.9[facility] HospitalComment on above:Folate reference range: >5.9 ng/ml The WHO technical consultation on folate and vitamin b12 deficiencies has determined that folate concentrations less than 4 ng/ml are considered deficient.Globulin Calc (S) [Mass/Vol]Ordered By: Peter Sosa on 53-55-6574Trvwecja (S) [Mass/Vol]2.7 g/dLWood County HospitalHematocrit Auto (Bld) [Volume fraction]Ordered By: Peter Sosa on 40-48-4165Bqmgfszzil (Bld) [Volume fraction]39.9 %34.0-46.4FSelect Medical Specialty Hospital - AkronLaboratory - Chemistry and Chemistry - challengeOrdered By: Peter Sosa on 49-25-1695Cbujwvlzl (Vitamin B12) [Mass/Vol]384 pg/mU524-126NiunhvjirWood County HospitalLaboratory - Hematology and Cell countsOrdered By: Peter Sosa on 05-28-9813Yxhuemcrk RBC/100 WBC (Bld) [Ratio]0.1 %0-0.5 [facility] HospitalLymphocytes Auto (Bld) [#/Vol]Ordered By: Peter Sosa on 07-67-8571Jaxeoenhfre (Bld) [#/Vol]1.9 10*3/uL1.00-4.8 [facility] HospitalLymphocytes/100 WBC Auto (Bld)Ordered By: Peter Sosa on 11-78-0842Cdbndaxehmk/100 WBC (Bld)22.6 %.[facility] Auto (RBC) [Entitic mass]Ordered By: Peter Sosa on 69-84-2290WEK (RBC) [Entitic mass]28.2 pg24.7-34.3FSelect Medical Specialty Hospital - AkronMCHC Auto (RBC) [Mass/Vol]Ordered By: Peter Sosa on 66-23-6180PXFR (RBC) [Mass/Vol]32.0 g/dL32.0-35.0[facility] HospitalMCV Auto (RBC) [Entitic vol]Ordered By: Peter Sosa on 23-92-7013YXL (RBC) [Entitic vol]87.9 gF11-115RjwaabyplWood County HospitalMonocytes Auto (Bld) [#/Vol] Ordered By: Peter Sosa on 70-64-9873Dadkvozff (Bld) [#/Vol]0.7 10*3/uL 0.0-0.8[facility] HospitalMonocytes/100 WBC Auto (Bld)Ordered By: Peter Sosa on 91-37-4985Vgttxrnvi/100 WBC (Bld)8.4 %.[facility] HospitalNeutrophils Auto (Bld) [#/Vol]Ordered By: Peter Sosa on 05-08-3089Grcfypemtaq (Bld) [#/Vol]5.5 10*3/uL1.8-7.7FSelect Medical Specialty Hospital - AkronNeutrophils/100 WBC Auto (Bld)Ordered By: Peter Sosa on 05-21-2022 Neutrophils/100 WBC (Bld)64.8 %.[facility] County HospitalNo Panel InformationOrdered By: Peter Sosa on 81-26-709195447044-Nxtakbd Vitamin D Total 50.4 ng/dC62-823CamgqkzapWood County HospitalComment on above:VITAMIN D STATUS 25(OH)VITAMIN D RANGE (ng/mL) Deficient <20 Insufficient 20 to <30 Sufficient 30 to 100 Reference: Lubna MF,Aleida NC, Tavo EDWARDS, et al. Evaluation,treatment, and prevention of vitamin D deficiency; an Endocrine Society clinical practice guideline. JCEM. 2010; 96(7):1911-30.Estimated GFR ()49 mL/MinWood County HospitalComment on above: GFR estimated reference range: According to KDOQI guidelines, <60 ml/min/1.73m2 is sufficient todiagnose a patient with chronic kidney disease.Pharmacy Creatinine Clearance (ChemN/[facility] HospitalPlatelet mean volume Auto (Bld) [Entitic vol]Ordered By: Peter Sosa on 96-10-3739Kalifarm mean volume (Bld) [Entitic vol]8.4 fL6.3-10.7FSelect Medical Specialty Hospital - Akron Platelets Auto (Bld) [#/Vol]Ordered By: Peter Sosa on 11-48-7557Wjankzdpw (Bld) [#/Vol]240 10*3/qF366-285MbobngshyWood County HospitalProtein [Mass/volume] in Serum or PlasmaOrdered By: Peter Sosa on 64-31-0200Nkvchea [Mass/Vol]6.4 g/dL6.1-7.9[facility] HospitalRBC Auto (Bld) [#/Vol] Ordered By: Peter Sosa on 34-22-6958YSB (Bld) [#/Vol]4.54 10*6/uL3.60-5.00 [facility] Christ Hospitalerum or plasma alanine aminotransferase measurement without P-5'-P (enzymatic activiOrdered By: Peter Sosa on 07-67-1425OKM No additional P-5'-P [Catalytic activity/Vol]27 U/S00-32VlawddvmnThe Christ Hospitalerum or plasma albumin/globulin mass ratioOrdered By: Peter Sosa on 19-36-7864Vbpwwkd/Globulin [Mass ratio]1.4 {ratio}[facility] Hospitalerum or plasma alkaline phosphatase measurement (enzymatic activity/volume)Ordered By: Peter Sosa on 48-64-7403PEX [Catalytic activity/Vol]59 U/J41-73CkfgjskrsThe Christ Hospitalerum or plasma aspartate aminotransferase measurement (enzymatic activity/volume)Ordered By: Peter Sosa on 96-80-5165EQO [Catalytic activity/Vol]26 U/G03-85TqggzlgdzThe Christ Hospitalerum or plasma calcium measurement (mass/volume)Ordered By: Peter Sosa on 25-82-6327Maaqlza [Mass/Vol]9.5 mg/dL8.2-10.2FTrinity Health System Twin City Medical Centererum or plasma chloride measurement (moles/volume) Ordered By: Peter Sosa on 69-47-2236Ihpezqve [Moles/Vol]102 mmol/L95-114 [facility] Hospitalerum or plasma glucose measurement (mass/volume)Ordered By: Peter Sosa on 82-09-9646Vvzbiqw [Mass/Vol]93 mg/dL 70-100[facility] HospitalComment on above:ADA recommended reference range Random Glucose Reference Range is dependent on time and content of last meal. Glucose of more than 200 mg/dL in a nonstressed, ambulatory subject supports the diagnosis of Diabetes Mellitus.Serum or plasma high density lipoprotein (HDL) cholesterol measurementOrdered By: Peter Sosa on 84-29-1833Ueapmpsywmz in HDL [Mass/Vol]55 mg/wQ62-63OvxszcuvgWood County HospitalComment on above:HDL CHOL ATP-III CLASSIFICATION Cardiovascular Risk HDL > or equal to 60 mg/dL LOW HDL < 40 mg/dL HIGHSerum or plasma potassium measurement (moles/volume)Ordered By: Peter Sosa on 92-43-2635Qnbnsyhbo [Moles/Vol]4.2 mmol/L3.5-5.1FTrinity Health System Twin City Medical Centererum or plasma sodium measurement (moles/volume)Ordered By: Peter Sosa on 12-20-8569Hzkslc [Moles/Vol]140 mmol/Q396-795QsjojzezkThe Christ Hospitalerum or plasma total bilirubin measurement (mass/volume) Ordered By: Peter Sosa on 75-01-2390Lzldwvqzs [Mass/Vol]0.4 mg/dL0.3-1.2 The Christ Hospitalerum or plasma total carbon dioxide measurement (moles/volume)Ordered By: Peter Sosa on 60-12-7004WO6 [Moles/Vol]29.5 mmol/L22.0-30.0The Christ Hospitalerum or plasma total cholesterol/high density lipoprotein (HDL) cholesterol mass ratOrdered By: Peter Sosa on 28-48-6679Idmljpdwknf.total/Cholesterol in HDL [Mass ratio] 3.7 {ratio}<5.0The Christ Hospitalerum or plasma urea nitrogen measurement (mass/volume)Ordered By: Peter Sosa on 23-47-7822Thqw nitrogen [Mass/Vol]30 mg/dL9-23Wood County HospitalTS DL <= 0.005 mIU/L Qn Ordered By: Peter Sosa on 64-78-5835MRC Qn2.03 m[IU]/L0.45-5.33[facility] County HospitalThyroxine (T4) free [Mass/volume] in Serum or Plasma Ordered By: Peter Sosa on 60-51-5802Xvxr T4 [Mass/Vol]0.96 ng/dL0.61-1.12 [facility] HospitalTriglyceride [Mass/volume] in Serum or Plasma Ordered By: Peter Sosa on 06-21-0408Pttlntiqgwjm [Mass/Vol]102 mg/sP27-218 [facility] HospitalComment on above:TRIG ATP III CLASSIFICATION TRIG less than 150 mg/dL Normal TRIG 150-199 mg/dL Borderline high TRIG 200-500 mg/dL High TRIG greater than 500 mg/dL Very high Standard traceable to the Center for Disease Conrtrol and Prevention (CDC) test method.Triiodothyronine (T3) Free [Mass/volume] in Serum or PlasmaOrdered By: Peter Sosa on 63-74-8142Spkl T3 [Mass/Vol]3.88 pg/mL2.50-3.90Wood County HospitalUrine microalbumin measurement with detection limit of 20 mg/L or less (mass/volume)Ordered By: Peter Sosa on 49-36-7006Cifosvz DL <= 20 mg/L (U) [Mass/Vol]mg/dL0.0-1.8[facility] County HospitalUrine microalbumin/creatinine mass ratioOrdered By: Peter Sosa on 05-21-2022 Albumin/Creatinine DL <= 20 mg/L (U) [Mass ratio]TNPWood County HospitalComment on above:Test not performedUS EXT NON VASC LIMITED LTon 05-08-2022 US EXT NON VASC LIMITED LTEXAMINATION: US EXT NON VASC LIMITED LT HISTORY: [...] Electronically authenticated by: ANUSHA AGUERO Date: 2022-05-08 16:18NoWhite HospitalC3 and C4 COMPLEMENTon 46-80-9381Fngxgttxse C3, Cqhoq097 mg/dL Critically nder09-633Uhe [facility]rington HospitalComment on above:Performed By: #### SEDR #### [facility] [address] [address] [address] Kyree NealComplement C4, Serum35 mg/fOOucmms20-27Hiw [facility] Comment on above:Performed By: #### SEDR #### [facility] [address] [address] [address] Kyree NealCOMPLEMENT TOTAL (CH50)on 08-43-6328Oktjyvrxwz, Total (CH50)>60 Normal>41The [facility] Hospitalment on above:Result Comment: Age Male Female 1 - 30 [...] table above to determine out of range values.Performed By: #### CH50T ####[facility] [address] [address]Dr. Kyree NealRNP ANTIBODIES on 39-69-4061KEZ Antibodies<0.5Ngzlud8.0-0.9The [facility] HospitalComment on above:Performed By: #### SEDR #### [facility] [address] [address] [address] Kyree Polk AUTO DIFFon 94-66-4031KGEG #0.1 103/ulNormal0.0-0.1The [facility]rington HospitalComment on above:Performed By: #### CBC ####[facility] [address] [address]Dr.Kyree NealBasophils/100 WBC (Bld)0.9 %Normal0.2-2.0The [facility] Hospitalment on above:Performed By: #### CBC ####[facility] [address] [address]Dr.Kyree ChangEO #0.4 103/ulNormal0.0-0.7The [facility]rington HospitalComment on above:Performed By: #### CBC ####[facility] [address] [address]Dr.Kyree ChangEosinophils/100 WBC (Bld)5.4 %Normal 0.9-7.0The [facility] Hospitalment on above:Performed By: #### CBC ####[facility] [address] [address]Dr.Kyree Neal Erythrocyte distribution width (RBC) [Ratio]13.9 %Hehypv67.0-15.0The [facility] HospitalComment on above:Performed By: #### CBC ####[facility] Ayngug[address]ic[address] [place], [place] [address]Dr.Kyree NealHematocrit (Bld) [Volume fraction]40.9 %Lvtsgt20.0-48.0The [facility] HospitalComment on above:Performed By: #### CBC ####[facility] Cktcibnfed[address] [place], [place] [address]Dr.Kyree NealHemoglobin (Bld) [Mass/Vol]12.8 g/dL Fraaea15.0-16.0The [facility] HospitalComment on above:Performed By: #### CBC ####[facility] Cfpyccyzan[address] [place], [place] [address]Dr. Aaliyahlan ChangIG #0.03 10e3/ulNormal0.00-0.03The [facility] HospitalComment on above: Performed By: #### CBC ####[facility] Nlawniuxpx[address] [place], [place] [address]Dr.Kyree ChangIG %0.4 %Normal0.0-0.5The [facility] HospitalComment on above:Performed By: #### CBC ####[facility] Ukdlkjutcv[address] [place], [place] [address]Dr.Kyree NealLYMPH #1.7 103/ulNormal1.2-3.8The [facility] HospitalComment on above:Performed By: #### CBC ####[facility] Qtinrcckff[address] [place], [place] [address]Dr. Kyree NealLymphocytes/100 WBC (Bld)21.2 %Jtzcnp86.5-60.0The [facility] Comment on above:Performed By: #### CBC ####[facility] Xmiulgbqgw[address] [place], [place] [address]Dr.Kyree NealMANUAL DIFF REQNONormalThe [facility] HospitalComment on above:Performed By: #### CBC ####[facility] Mlefidcqwn[address] [place], [place] [address]Dr.Kyree NealMCH (RBC) [Entitic mass]28.2 qsKsiyis03.7-34.0The [facility] HospitalComment on above: Performed By: #### CBC ####[facility] Asvqjisdxc[address] [place], [place] [address]Dr.Kyree ÁngelHC (RBC) [Mass/Vol]31.3 g/dLNormal 29.9-35.2The [facility] HospitalComment on above:Performed By: #### CBC ####[facility] Fcmihhagcl[address] [place], [place] [address]Dr. Kyree NealMCV (RBC) [Entitic vol]90.1 oLHjmilc42.0-99.0The [facility] Comment on above:Performed By: #### CBC ####[facility] Eibnpiucte[address] [place], [place] [address]DrArvind NealMONO #0.6 103/ulNormal0.3-0.8 The [facility] HospitalComment on above:Performed By: #### CBC ####[facility] Lxoubpzdoh[address] [place], [place] [address]Dr.Aaliyahjeff Neal Monocytes/100 WBC (Bld)8.2 %Normal1.7-12.0The [facility] HospitalComment on above: Performed By: #### CBC ####[facility] Ojhadrdaox[address] [place], [place] [address]Dr.Kyree NealNEUT #5.0 103/ulNormal1.4-6.5The [facility] HospitalComment on above:Performed By: #### CBC ####[facility] Gazbsuzvxk[address] [place], [place] [address]Dr.Kyree NealNeutrophils/100 WBC (Bld)63.9 %Axhtar66.0-75.0The [facility] HospitalComment on above:Performed By: #### CBC ####[facility] Crfzkiczcp[address] [place], [place] [address]DrArvind NealPlatelet mean volume (Bld) [Entitic vol]9.7 fLNormal9.5-13.5 The [facility] HospitalComment on above:Performed By: #### CBC ####[facility] Czwdtutsev[address] [place], [place] [address]Dr.Kyree NealPLT245 103/wkBqwtoz460-607Mgn [facility] HospitalComment on above:Performed By: #### CBC ####[facility] [address] [address]DrDulce NealRBC4.54 106/ulNormal4.20-5.40The [facility] HospitalComment on above: Performed By: #### CBC ####[facility] [address] [address]Dr.Kyree NealWBC7.8 103/ulNormal4.0-11.0The [facility] HospitalComment on above:Performed By: #### CBC ####[facility] [address] [address]DrArvind NealCRPon 83-82-9389RQJ6.1 mg/dLCritically high<=1.0The [facility] on above: Performed By: #### HH #### [facility] [address] [place] [address] Dr. Kyree Hall 14(COMP METB)on 26-06-9733Ejonqeu [Mass/Vol]3.5 g/dLNormal 3.4-5.0The [facility] on above:Performed By: #### HH #### [facility] [address] [place] [address] Dr. Kyree NealAlbumin/Globulin [Mass ratio]0.9 {ratio}NormalThe [facility] on above:Performed By: #### HH #### [facility] [address] [place] [address] Dr. Kyree Rizo [Catalytic activity/Vol]64 U/WZndjcc54-262Nld [facility] HospitalCommclaren caro region on above:Performed By: #### HH #### [facility] [address] [place] [address] Dr. Kyree Perrin [Catalytic activity/Vol]29 U/TQqfvrc82-79Mvp [facility] HospitalComment on above:Performed By: #### HH #### [facility] [address] [place], [place] [address] Dr. Kyree Shaw gap [Moles/Vol]10.5 mmol/LNormalC[facility] Clinic [facility] Comment on above:Performed By: #### HH #### [facility] [address] [address] [address] Kyree NealAST [Catalytic activity/Vol]20 U/GGrdkhb98-45Uby [facility] HospitalComment on above:Performed By: #### HH #### [facility] [address] [address] [address] Kyree NealBilirubin [Mass/Vol]0.4 mg/dLNormal0.2-1.0The [facility] Comment on above:Performed By: #### HH #### [facility] [address] [place] [address] Dr. Kyree NealCalcium [Mass/Vol]9.4 mg/dLNormal8.5-10.1[facility] Comment on above:Performed By: #### HH #### [facility] [address] [place] [address] Dr. Kyree NealChloride [Moles/Vol]106 mmol/SGfykjb23-155EnuCleveland Clinic [facility] Comment on above:Performed By: #### HH #### [facility] [address] [place] [address] Dr. Kyree NealCO2 [Moles/Vol]30.4 mmol/DBgexpg17.0-32.0[facility] Comment on above:Performed By: #### HH #### [facility] [address] [place] [address] Dr. Kyree NealCreatinine [Mass/Vol]1.03 mg/dLCritically high0.55-1.02[facility] HospitalComment on above:Performed By: #### HH #### [facility] [address] [place] [address] Dr. Kyree CooperGFR-AF IVORIAN>60Normal>=60The [facility] HospitalComment on above:Performed By: #### HH #### [facility] [address] [place] [address] Dr. Yilan ChangEGFR-NON AF TTLFCTTP01 mL/min/1.78s4Msokeuezgi low>=60The [facility] HospitalComment on above:Performed By: #### HH #### [facility] [address] [address] [address] Kyree NealGlobulin (S) [Mass/Vol]3.8 g/dLNormOhioHealth O'Bleness HospitalComment on above:Performed By: #### HH #### [facility] [address] [address] [address] Kyree NealGlucose [Mass/Vol]131 mg/dLCritically owwv24-749Ozl [facility] HospitalComment on above:Performed By: #### HH #### [facility] [address] [place] [address] Dr. Kyree NealPotassium [Moles/Vol]3.9 mmol/LNormal3.5-5.1The [facility] Comment on above:Performed By: #### HH #### [facility] [address] [place] [address] Dr. Kyree NealProtein [Mass/Vol]7.3 g/dLNormal6.4-8.2The [facility] Comment on above:Performed By: #### HH #### [facility] [address] [place] [address] Dr. Kyree NealSodium [Moles/Vol]143 mmol/WMdradv508-536Aka [facility] Comment on above:Performed By: #### HH #### [facility] [address] [address] [address] Kyree NealUrea nitrogen [Mass/Vol]24.0 mg/dLCritically high7.0-18.0The [facility] HospitalComment on above:Performed By: #### HH #### [facility] [address] [place] [address] Dr. Kyree Douglas nitrogen/Creatinine [Mass ratio]23.3 mg/mgNoWhite HospitalComment on above:Performed By: #### HH #### [facility] [address] [place] [address] Dr. Kyree Monson RATE WESTERGRENon 64-37-4358CKT RATE40 mm/hrCritically high <=30[facility] Hospitalment on above:Performed By: #### HH #### [facility] [address] [address] [address] Kyree Brown RANDOM W/MICROSCOPICon 80-69-9520PVOYUYIFATOU SEENNormalNONE SEENCleveland Clinic [facility] HospitalComment on above:Performed By: #### UAMIC #### [facility] [address] [address] [address] Kyree NealBilirubin Ql (U)NegativeNormalNEGATIVEThe [facility] on above:Performed By: #### UAMIC #### [facility] [address] [address] [address] Kyree NealCASTRIO SEENNormalNONE SEENCleveland Clinic [facility] HospitalComment on above:Performed By: #### UAMIC #### [facility] [address] [address] [address] Kyree Donovanarity (U)CLEARNormalCLEARCleveland Clinic [facility] HospitalComment on above: Performed By: #### UAMIC #### [facility] [address] [address] [address] Kyree Damico (U)LT. YELLOWNormalYMercy Health St. Vincent Medical CenterComment on above:Performed By: #### UAMIC #### [facility] [address] [address] [address] Kyree NealCrystals LM Nom (Urine sed)NONE SEENNormalNONE SEENCleveland Clinic [facility] General [facility] HospitalComment on above:Performed By: #### UAMIC #### [facility] [address] [address] [address] Adorno ChangEpithelial cells LM Ql (Urine sed)MODERATEAbnormalNONE SEEN /RARE The [facility]rington HospitalComment on above:Performed By: #### UAMIC #### [facility] [address] [address] [address] Kyree Schillingose Ql (U)NegativeNormalNEGATIVECleveland Clinic [facility] HospitalComment on above:Performed By: #### UAMIC #### [facility] [address] [address] [address] Kyree NealHemoglobin Ql (U)NegativeNormalNEGATIVECleveland Clinic [facility] Comment on above:Performed By: #### UAMIC #### [facility] [address] [address] [address] Kyree NealKetones Ql (U)NegativeNormalNEGATIVECleveland Clinic [facility] HospitalComment on above:Performed By: #### UAMIC #### [facility] [address] [address] [address] Kyree NealLEUKOCYTESNegativeNormalNEGATIVECleveland Clinic Ak[facility] General [facility] HospitalComment on above:Performed By: #### UAMIC #### [facility] [address] [place] [address] Dr. Kyree NealMUCOUSNONE SEENNormalNONE SEENCleveland Clinic [facility] HospitalComment on above:Performed By: #### UAMIC #### [facility] [address] [place] [address] Dr. Kyree NealNitrite Ql (U)NegativeNormalNEGATIVECleveland Clinic [facility] General [facility] HospitalComment on above:Performed By: #### UAMIC #### [facility] [address] [place] [address] Dr. Kyree NealpH (U)5.5 [pH]Normal5-9[facility] HospitalComment on above: Performed By: #### UAMIC #### [facility] [address] [place] [address] Dr. Kyree NealRBCNONE SEENAbnormal0-2The [facility] HospitalComment on above: Performed By: #### UAMIC #### [facility] [address] [address] [address] Kyree NealSPEC GRAVITY1.868Qiiiyw2.005-<=1.025The [facility] HospitalComment on above:Performed By: #### UAMIC #### [facility] [address] [place] [address] Dr. Kyree NealUA PROTEINNegativeNormalNEGATIVE/ TRACEThe [facility] Comment on above:Performed By: #### UAMIC #### [facility] [address] [address] [address] Kyree Friedman Qn (U)0.2 {Herrera'U}/dLNormal0.2 - 1.0The [facility] HospitalComment on above:Performed By: #### UAMIC #### [facility] [address] [address] [address] Kyree LedesmaBCNONE SEENNormalNONE SEENThe [facility] HospitalComment on above: Performed By: #### UAMIC #### [facility] [address] [address] [address] Kyree Reddy 22-59-2040YQL7.9 mg/dLNormal<=1.0[facility] Comment on above:Performed By: #### CRP ####[facility] [address] [address]Dr.Yilan Monson RATE WESTERGRENon 00-86-1592DCP RATE39 mm/hrCritically high<=30The [facility] HospitalComment on above:Performed By: #### SEDR #### [facility] [address] [address] [address] Kyree NealThe Institute Of Living Metabolic PanelOrdered By: Reynaldo Trejo on 04-16-2022 Chloride [Moles/Vol]100 mmol/V70-639AknxfxzaqWood County HospitalGlucose [Mass/Vol]129 mg/sZ32-928IsspixouwWood County HospitalComment on above:ADA recommended reference range Random Glucose Reference Range is dependent on time and content of last meal. Glucose of more than 200 mg/dL in a nonstressed, ambulatory subject supports the diagnosis of Diabetes Mellitus.ADA recommended reference rangeRandom Glucose Reference Range is dependent on time and content of last meal. Glucose of more than 200 mg/dL in a nonstressed, ambulatory subject supports the diagnosisof Diabetes Mellitus.Sodium [Moles/Vol]140 mmol/T775-296JqsbsjvluWood County HospitalUrea nitrogen [Mass/Vol]27 mg/dL9-23Wood County HospitalBasic Metabolic Panelon 33-48-1246Thcyoiz [Mass/Vol]9.7647874 mg/dLNormal8.2-10.2 mg/dLNohedrick medical center [facility] Other CO2 [Moles/Vol]29.99041576 mmol/PVpkuey71.0-30.0 mmol/LNSaguaro Resources Other Creatinine [Mass/Vol]1.42080803 mg/dLHigh0.44-1.03 mg/dLNohedrick medical center [facility] Other Potassium [Moles/Vol]3.93080816 mmol/LNormal3.5-5.1 mmol/LNSaguaro Resources Other Basic Metabolic Tyelh97Kboiz [facility] Other Creatinine and Glomerular filtration rate.predicted panel (S/P/Bld)Ordered By: Reynaldo Trejo on 21-84-7013Pyoepzkcgk [Mass/Vol]1.06 mg/dL0.44-1.03[facility] County HospitalEstimated glomerular filtration rate (GFR) non- AmericanOrdered By: Reynaldo Trejo on 75-71-6610NVV/1.73 sq M.predicted among non-blacks MDRD (S/P/Bld) [Vol rate/Area]52 mL/MinWood County HospitalNo Panel InformationOrdered By: Reynaldo Trejo on 44-88-0507Asuwtoqwk GFR ()> 60 mL/MinWood County HospitalComment on above:GFR estimated reference range: According to KDOQI guidelines, <60 ml/min/1.73m2 is sufficient todiagnose a patient with chronic kidney disease.Pharmacy Creatinine Clearance (ChemN/[facility] Hospitalerum or plasma calcium measurement (mass/volume)Ordered By: Reynaldo Trejo on 21-09-1644Fsatdjb [Mass/Vol]9.7 mg/dL8.2-10.2FTrinity Health System Twin City Medical Centererum or plasma potassium measurement (moles/volume)Ordered By: Reynaldo Trejo on 87-54-5580Pvrxijcxg [Moles/Vol]3.8 mmol/L3.5-5.1FTrinity Health System Twin City Medical Centererum or plasma total carbon dioxide measurement (moles/volume)Ordered By: Reynaldo Trejo on 24-40-9902XG1 [Moles/Vol]29.6 mmol/L 22.0-30.0[facility] HospitalAlbumin [Mass/volume] in Serum or PlasmaOrdered By: Megan Epps on 35-57-4038Xlgggko [Mass/Vol]3.6 g/dL3.2-5.5 [facility] HospitalBasophils Auto (Bld) [#/Vol]Ordered By: Megan Epps on 77-57-7511Vzpakdnkk (Bld) [#/Vol]0.1 10*3/uL0.0-0.2FSelect Medical Specialty Hospital - AkronBasophils/100 WBC Auto (Bld)Ordered By: Megna Epps on 23-07-2450Zryxdwteg/100 WBC (Bld)0.8 %.[facility] HospitalBlood hemoglobin measurement (mass/volume)Ordered By: Megan Epps on 04-09-2022 Hemoglobin (Bld) [Mass/Vol]12.8 g/dL11.8-15.4FSelect Medical Specialty Hospital - Akron Blood leukocytes automated count (number/volume)Ordered By: Megan Epps on 70-19-6574FOQ (Bld) [#/Vol]9.5 10*3/uL4.5-11.0[facility] CT biopsyOrdered By: Megan Epps on 77-94-1665Zyikkqrlfhr [Mass/Vol]242 mg/dL 180-380[facility] HospitalCreatinine and Glomerular filtration rate.predicted panel (S/P/Bld)Ordered By: Megan Epps on 83-91-4838Cpfftqtzae [Mass/Vol]1.06 mg/dL0.44-1.03[facility] HospitalEosinophils Auto (Bld) [#/Vol]Ordered By: Megan Epps on 98-72-4044Jnqzolzjgiq (Bld) [#/Vol]0.5 10*3/uL0.0-0.45[facility] HospitalEosinophils/100 WBC Auto (Bld) Ordered By: Megan Epps on 72-55-6572Mklmbzhmstw/100 WBC (Bld)5.5 %.[facility] HospitalErythrocyte distribution width Auto (RBC) [Ratio]Ordered By: Megan Epps on 72-83-4725Qrrovyptrto distribution width (RBC) [Ratio]14.6 %11.9-15.3FSelect Medical Specialty Hospital - AkronEstimated glomerular filtration rate (GFR) non- AmericanOrdered By: Megan Epps on 55-52-4013YMK/1.73 sq M.predicted among non-blacks MDRD (S/P/Bld) [Vol rate/Area]52 mL/MinWood County HospitalFerritin [Mass/volume] in Serum or PlasmaOrdered By: Megan Epps on 54-63-3975Iotlhgbj [Mass/Vol]383.1 ng/lC26-337.8[facility] County HospitalFolate [Mass/volume] in Serum or PlasmaOrdered By: Megan Epps on 49-14-7438Tamnzn [Mass/Vol]ng/mL>5.9[facility] HospitalComment on above:Folate reference range: >5.9 ng/ml The WHO technical consultation on folate and vitamin b12 deficiencies has determined that folate concentrations less than 4 ng/ml are considered deficient.Globulin Calc (S) [Mass/Vol]Ordered By: Megan Epps on 54-98-9497Oojykcik (S) [Mass/Vol]2.6 g/dLWood County HospitalHematocrit Auto (Bld) [Volume fraction]Ordered By: Megan Epps on 62-34-4072Ugxttqjwmw (Bld) [Volume fraction]38.4 %34.0-46.4FSelect Medical Specialty Hospital - AkronIron [Mass/volume] in Serum or PlasmaOrdered By: Megan Epps on 90-09-1236Hlel [Mass/Vol]41 ug/oW76-561AqcfgpysfWood County HospitalIron binding capacity [Mass/volume] in Serum or PlasmaOrdered By: Megan Epps on 24-64-9605Pbey binding capacity [Mass/Vol]339 ug/gY885-936QfqorpwxnWood County HospitalIron saturation [Mass Fraction] in Serum or PlasmaOrdered By: Megan Epps on 30-13-4718Insg saturation [Mass fraction]12.0 %20-50[facility] HospitalLaboratory - Chemistry and Chemistry - challengeOrdered By: Megan Supriya on 75-72-7521Cwamxrbat (Vitamin B12) [Mass/Vol]459 pg/mL 180-914Wood [facility] HospitalLaboratory - Hematology and Cell counts Ordered By: Megan Epps on 46-83-0524Epyeqbvem RBC/100 WBC (Bld) [Ratio]0.0 % 0-0.5FSelect Medical Specialty Hospital - AkronLymphocytes Auto (Bld) [#/Vol]Ordered By: Megan Epps on 91-21-6821Uncpyaobwus (Bld) [#/Vol]2.1 10*3/uL1.00-4.8[facility] HospitalLymphocytes/100 WBC Auto (Bld)Ordered By: Megan Epps on 02-50-3684Scihguzeoed/100 WBC (Bld)21.7 %.[facility] MCH Auto (RBC) [Entitic mass]Ordered By: Megan Epps on 58-12-6624KAA (RBC) [Entitic mass]29.1 pg24.7-34.3FSelect Medical Specialty Hospital - AkronMCHC Auto (RBC) [Mass/Vol]Ordered By: Megan Epps on 69-81-8808NFVC (RBC) [Mass/Vol]33.3 g/dL 32.0-35.0[facility] HospitalMCV Auto (RBC) [Entitic vol]Ordered By: Megan Epps on 38-68-9609GXH (RBC) [Entitic vol]87.3 sO21-589DvcqnaxdvWood County HospitalMonocytes Auto (Bld) [#/Vol]Ordered By: Megan Epps on 25-46-6432Labuysdvk (Bld) [#/Vol]0.7 10*3/uL0.0-0.8[facility] HospitalMonocytes/100 WBC Auto (Bld)Ordered By: Megan Epps on 04-09-2022 Monocytes/100 WBC (Bld)7.2 %.[facility] HospitalNeutrophils Auto (Bld) [#/Vol]Ordered By: Megan Epps on 96-87-7909Gskldphkffu (Bld) [#/Vol]6.2 10*3/uL1.8-7.7FSelect Medical Specialty Hospital - AkronNeutrophils/100 WBC Auto (Bld) Ordered By: Megan Epps on 69-20-4385Yexjhfgyilw/100 WBC (Bld)64.8 %.[facility] HospitalNo Panel InformationOrdered By: Megan Epps on 44-82-1473Ylzihppfh GFR ()> 60 mL/MinWood County HospitalComment on above:GFR estimated reference range: According to KDOQI guidelines, <60 ml/min/1.73m2 is sufficient todiagnose a patient with chronic kidney disease.Pharmacy Creatinine Clearance (Chem65.00[facility] HospitalPlatelet mean volume Auto (Bld) [Entitic vol]Ordered By: Megan Epps on 05-14-2271Pljqoynp mean volume (Bld) [Entitic vol]8.4 fL6.3-10.7 [facility] HospitalPlatelets Auto (Bld) [#/Vol]Ordered By: Megan Epps on 03-02-9763Lvhtqiuyw (Bld) [#/Vol]249 10*3/tO945-209DkuzqsloyWood County HospitalProtein [Mass/volume] in Serum or PlasmaOrdered By: Megan Epps on 38-68-9115Spofqya [Mass/Vol]6.2 g/dL6.1-7.9Wood County HospitalRBC Auto (Bld) [#/Vol]Ordered By: Megan Epps on 86-43-1725WBM (Bld) [#/Vol]4.40 10*6/uL3.60-5.00The Christ Hospitalerum or plasma alanine aminotransferase measurement without P-5'-P (enzymatic activi Ordered By: Megan Epps on 27-23-5497ATG No additional P-5'-P [Catalytic activity/Vol]21 U/W01-79XarxszwiqThe Christ Hospitalerum or plasma albumin/globulin mass ratioOrdered By: Megan Epps on 04-09-2022 Albumin/Globulin [Mass ratio]1.4 {ratio}The Christ Hospitalerum or plasma alkaline phosphatase measurement (enzymatic activity/volume)Ordered By: Megan Supriya on 99-19-6877WJI [Catalytic activity/Vol]62 U/H48-92WxvhdcanjThe Christ Hospitalerum or plasma aspartate aminotransferase measurement (enzymatic activity/volume)Ordered By: Megan Supriya on 04-07-6466JKB [Catalytic activity/Vol]21 U/A42-44OujqbytbxThe Christ Hospitalerum or plasma calcium measurement (mass/volume)Ordered By: Megan Supriya on 13-85-4050Dwibyuv [Mass/Vol]9.2 mg/dL8.2-10.2FTrinity Health System Twin City Medical Centererum or plasma chloride measurement (moles/volume)Ordered By: Megan Supriya on 04-09-2022 Chloride [Moles/Vol]101 mmol/V69-132FfpmruiggThe Christ Hospitalerum or plasma glucose measurement (mass/volume)Ordered By: Megan Supriya on 04-09-2022 Glucose [Mass/Vol]111 mg/zB04-426ToupyutcdWood County HospitalComment on above:ADA recommended reference range Random Glucose Reference Range is dependent on time and content of last meal. Glucose of more than 200 mg/dL in a nonstressed, ambulatory subject supports the diagnosis of Diabetes Mellitus.Serum or plasma methylmalonate measurement (moles/volume)Ordered By: Megan Supriya on 47-75-3050Vuigkuwqefvaph [Moles/Vol] 291 nmol/L0-378Wood County HospitalComment on above:This test was developed and its performance characteristics determined by [employer]. It has not been cleared or approved by the Food and Drug Administration. Performed at: [address] [id number] Pool Nurse: Alan Christianson MD, Phone: [phone] or plasma potassium measurement (moles/volume)Ordered By: Megan Supriya on 39-38-7102Okjokxdth [Moles/Vol]3.6 mmol/L3.5-5.1FTrinity Health System Twin City Medical Centererum or plasma sodium measurement (moles/volume)Ordered By: Megan Epps on 20-01-4620Uibkll [Moles/Vol]140 mmol/E791-883GomwifdvqThe Christ Hospitalerum or plasma total bilirubin measurement (mass/volume)Ordered By: Megan Epps on 04-09-2022 Bilirubin [Mass/Vol]0.6 mg/dL0.3-1.2FTrinity Health System Twin City Medical Centererum or plasma total carbon dioxide measurement (moles/volume)Ordered By: Megan Epps on 95-91-8068EL9 [Moles/Vol]26.6 mmol/L22.0-30.0The Christ Hospitalerum or plasma urea nitrogen measurement (mass/volume)Ordered By: Megan Harrisjuanis on 03-58-2816Xzfr nitrogen [Mass/Vol]23 mg/dL9-23Wood County HospitalPTH INTACTon 59-80-0800ETS, Ankdyg45 pg/qEGojvgi45-32Ycp [facility] HospitalComment on above:Performed By: #### PTHINT ####[facility] [address] [address]Dr. Kyree NealHEMOGRAM AND PLATELon 14-25-3534Pqfgdppsua (Bld) [Volume fraction]39.1 %Isggju05.0-48.0The [facility]rington HospitalComment on above:Performed By: #### HH #### [facility] [address] [address] [address] Kyree NealHemoglobin (Bld) [Mass/Vol]12.4 g/iWJueghl18.0-16.0The [facility]rington HospitalComment on above:Performed By: #### HH #### [facility] [address] [address] [address] Kyree Marino (RBC) [Entitic mass]28.7 ppLwjkgp70.7-34.0The [facility]rington HospitalComment on above:Performed By: #### HH #### [facility] [address] [address] [address] Kyree Marino (RBC) [Mass/Vol]31.7 g/mRAztpft77.9-35.2The [facility] HospitalComment on above:Performed By: #### HH #### [facility] [address] [place] [address] Dr. Kyree Marino (RBC) [Entitic vol]90.5 yANmcsiv80.0-99.0The [facility]rington HospitalComment on above:Performed By: #### HH #### [facility] [address] [place] [address] Dr. Kyree NealPLT242 103/seRwxhlt760-751Ccy [facility] HospitalComment on above: Performed By: #### HH #### [facility] [address] [place] [address] Dr. Kyree NealRBC4.32 106/ulNormal4.20-5.40The Cherrington HospitalComment on above:Performed By: #### HH #### [facility] [address] [place] [address] Dr. Kyree NealWBC8.6 103/ulNormal4.0-11.0The [facility]rington HospitalComment on above: Performed By: #### HH #### [facility] [address] [place] [address] Dr. Kyree NealPHOSPHORUSon 77-61-5946Pkusgbtgb [Mass/Vol]2.7 mg/dLNormal2.6-4.7 The [facility]rington HospitalComment on above:Performed By: #### ALISON, BMP #### [facility] [address] [place] [address] Dr. Kyree NealPROF CHEM 8 (BAS METB)on 27-24-4768Ayfnf gap [Moles/Vol]11.0 mmol/LNormalThe [facility]rington HospitalComment on above:Performed By: #### PHOS, BMP #### [facility] [address] [place] [address] Dr. Kyree NealCalcium [Mass/Vol]9.0 mg/dLNormal8.5-10.1The [facility] Comment on above:Performed By: #### PHOS, BMP #### [facility] [address] [place] [address] Dr. Kyree NealChloride [Moles/Vol]104 mmol/MAzbaxn03-870Znq [facility] Comment on above:Performed By: #### PHOS, BMP #### [facility] [address] [address] [address] Kyree NealCO2 [Moles/Vol]30.6 mmol/LPltplq09.0-32.0[facility] Comment on above:Performed By: #### PHOS, BMP #### [facility] [address] [address] [address] Kyree NealCreatinine [Mass/Vol]1.10 mg/dLCritically high0.55-1.02[facility] HospitalComment on above:Performed By: #### PHOS, BMP #### [facility] [address] [address] [address] Adorno ChangEGFR-AF IVORIAN=60Normal>=60[facility] HospitalComment on above:Performed By: #### PHOS, BMP #### [facility] [address] [place] [address] Dr. Kyree CooperGFR-NON AF SNEKYAQH29 mL/min/1.20i9Htnqzpnhav low>=60The [facility] HospitalComment on above:Performed By: #### PHOS, BMP #### [facility] [address] [place] [address] Dr. Kyree NealGlucose [Mass/Vol]93 mg/tCXrrpcp05-781AwfC[facility] Clinic [facility] Comment on above:Performed By: #### PHOS, BMP #### [facility] [address] [address] [address] Kyree NealPotassium [Moles/Vol]3.6 mmol/LNormal3.5-5.1[facility] Comment on above:Performed By: #### PHOS, BMP #### [facility] [address] [address] [address] Kyree NealSodium [Moles/Vol]142 mmol/BTvkcym473-663ScqCleveland Clinic [facility] Comment on above:Performed By: #### PHOS, BMP #### [facility] [address] [place] [address] Dr. Kyree NealUrea nitrogen [Mass/Vol]20.0 mg/dLCritically high7.0-18.0[facility] HospitalComment on above:Performed By: #### PHOS, BMP #### [facility] [address] [place] [address] Dr. Kyree NealUrea nitrogen/Creatinine [Mass ratio]18.2 mg/mgSelect Medical OhioHealth Rehabilitation Hospital - DublinComment on above:Performed By: #### PHOS, BMP #### [facility] [address] [place] [address] Dr. Kyree NealVITAMIN D 25 OHon 61-47-2614RXD D 25-OH45.4 ng/mLNormalCleveland Clinic [facility] Lodi HospitalComment on above:Performed By: #### SEDR #### [facility] [address] [place] [address] Dr. Kyree FrancoT D RANGESSEE BELOWSelect Medical OhioHealth Rehabilitation Hospital - DublinComment on above: Result Comment: <20 ng/mL Vit D deficient 20 - <30 ng/mL Vit D insufficient 30 - 100 ng/mL Vit D sufficient >100 ng/mL Potential ToxicityPerformed By: #### SEDR #### [facility] [address] [place] [address] Dr. Kyree NealA1C HEMOGLOBINon 63-57-4663WpW2n (Bld) [Mass fraction]6.1 %[employer] [facility] Other HbA1c (Bld) [Mass fraction]on 58-52-8758Y9D HEMOGLOBIN [employer] [facility] Other Office Visit (Cardiology)on 25-03-4223Glnaiq-up visit Diagnoses/Problems Assessed Chronic right-sided congestive heart [...] up in 9 months Chief Complaint VANESSA PADRON is being seen for a 3 month follow-up of. History of Present Illness Patient is here for follow-up continue management for previous evaluation of right-sided heart failure, hypertension, chronic kidney disease, morbid obesity and sleep apnea. Since last time I saw hershe reports stable cardiac status. Her edema appears [...] sleep apneaincluding possible surgery and or implantable device 5. Patient was asked me whether there is benefit for treatment with Farxiga or Jardiance I indicated to her that considering she had normal LV systolic function there is no clear cardiac benefit on the short term. However there may be some cardiac protection on the long run and renal protection anddose medication can be initiated by her PCP [...] MISC Allergy; Hives; It (more content not included)...NormalUH MflmaogkidL4W HEMOGLOBINon 88-13-0084NvY4j (Bld) [Mass fraction]5.9 %[employer] Other HbA1c (Bld) [Mass fraction]on 60-19-3414L0A HEMOGLOBIN [employer] Other Office Visit (Cardiology)on 67-40-5887Mypeqw-up visit Diagnoses/Problems Assessed Hypotension (458.9) (I95.9) quiescent on midodrine Edema (782.3) (R60.9) For the most part seems chronic No offending medications Intolerant to compression stockings Diet-controlled diabetes mellitus (250.00) (E11.9) CKD (chronic kidney disease), stage III (585.3) (N18.30) Follows routinely [facility] Nephrology - manage diuretic Morbid obesity with BMI of 45.0-49.9, adult (278.01,V85.42) (E66.01,Z68.42) Reviewed the merits of healthy lifestyle choices on overall cardiovascular health. Normal echocardiogram (V72.85) 2019 Echo LVEF 60-65% Normal RV function Trace MR RVSP normal Normal coronary angiogram Reports 2016 at outside hospital will request records Patient Instructions PLAN: Through informed decision making process incorporating patients unique circumstances, the followingtreatment plan will be initiated: 1. Prescription drug [...] of moderate-intensity aerobic activity. Brisk walking (at least2.5 miles per hour), water aerobics, gardening, biking [...] Complaint 'follow-up from emergency department visit' VANESSA PADRON is being seen for leg cramping. Last evaluated by Dr. Castanon May 2021 and doing well at that time. Seen in ED due to leg cramping and told 'was dehydrated'; medications were changed. Off diuretic, increased lower extremity edema - Nephrology started bumex and managing with repeat labs. On bumex noleg cramps, remains with some edema. Allergic to [...] told her 'damaging veins' and was switched toplavix. History of Present Illness The patient states she has been generally doing well since the last visit. Symptoms: denies chest pain at rest, denies exertional chest pain, denies dyspnea, denies fatigue, stable exercise intolerance, denies palpitations, improved edema, denies orthopnea, denies dizzinessand denies orthostatic dizziness. Disease Monitoring: Current Meds [...] NEEDED tiZANidine HCl - (more content not included)...NormalUH BdnaammpuhD0R HEMOGLOBIN on 98-32-8798OqS0i (Bld) [Mass fraction]6.0 %[employer] Other HbA1c (Bld) [Mass fraction]on 49-61-7592D0C HEMOGLOBIN [employer] Other a1c HEMOGLOBINon 58-17-7952LkN2y (Bld) [Mass fraction] 6.0 %[employer] Other HbA1c (Bld) [Mass fraction]on 22-31-8561Q0X HEMOGLOBIN [employer] Other MRI L-Ext Joint w/o Contrast RTon 96-86-8915ZJ Lower extremity joint - right WO contrastEXAMINATION TYPE: MRI L-Ext Joint w/o Contrast RT [...] periarticular collections or soft tissue masses about theknee. Atrophy of the muscles about the distal thigh and proximal calf. Flow-void in the popliteal artery is unremarkable. No Shrestha's cyst. Edema in the prepatellar fat.Subcutaneous varices are noted.IMPRESSION: Small knee joint effusion. No acute fractures. Patellofemoral alignment is normal. Quadriceps and patellar tendons are intact.Limited examination due to the right knee arthroplasty.[facility] [employer] thanks you for the opportunity to care for your patient. Workstation ID: [id number] - [id number] FINAL REPORT Dictated By: Lance Elise MD 08/03/2018 14:10Assigned Physician: Lance Kim ala, MD and Electronically Signed By: Lance Elise MD 08/03/2018 14:12Transcribed by: BARRON 08/03/2018 14:10Technologist: [facility] HospitalCNOVon 34-77-4013PKHHGhcqjk Visit (JAMAL) --------RENUKA PADRON ([id number]) 1955 FDate Time Provider Department05/27/18 12:30 PM ITALO ANN During your visit today, we recorded the following information about you: Pulse Respiration Blood pressure Weight 64/minute 16/minute 143/68 120.2 kg Height 1.6 Cece Ann MD 05/27/2018 1:19 PM [facility]Rob[facility] Department of CardiovascularMedicineOUTPATIENT VISIT DATE 05/27/18OUTPATIENT VISIT TYPEESTABLISHEDPRIMARY CARE PHYSICIAN:[place] [address]Bzvsc: [phone]: [phone] COMPLAINT:Patient presents with:Follow UpHISTORY OF PRESENT ILLNESS:Renuka Mackcolumba is a 61 year old female witha complex past medical history ofchronic diastolic heart failure, mild nonobstructive coronary artery disease,possible secundum type atrial septal defect, essential hypertension, pulmonaryhypertension, obstructive sleep apnea intolerant of face mask, gastroesophagealreflux disease, fibromyalgia andeither reactive or restrictive lung disease.06/30/2017The patient presents today as a new consult for weight gain and swelling. Femid previously been evaluated and under the care of Dr. Schilling of [facility]. Danika had multiple procedures performed which are detailed below. The patientrelates being onLasix in the past for her lower extremity edema. Apparentlythe doses were gradually increased due to lack of response. Eventually thepatient developed significant renal insufficiency and the Lasix had to bedecreased or stopped. The patient states that she had terrible cramping withthe doses of Lasix. She states she was unable to continue taking it. She isnow not currently on any diuretic therapy.She believes the swelling hasworsened in her lower extremities all the way up her legs and into herabdomen. She has gained approximately 11 pounds since February of this year. She does statethat she was taking avoy-cwy-ajlspzx diet pills until recently. They were notworking. The patient has chronic complaints of dyspnea and dyspnea onexertion. She has been treated with lisinopril for her blood pressure. TheLasix was used to try to decrease her edema but was not successful. Thepatient and her son seem frustrated with the [facility]. By my review of the testing it seems the previouscardiologist was going by the guidelines with continued reasonable testing inan effort to try to help the patient's situation. She and her son seems veryupset with the lack ofprogress.07/21/2017The patient presents today for a 2-3 week visit. I have reviewed her previoustesting and it is documented below. The results from a sleep study in May2017 shows mild obstructivesleep apnea. It was recommended that she betitrated on CPAP. The patient states that her home equipment is to bedelivered. She continues to have swelling. She continues to have dyspnea onexertion. Ithas not worsened since her previous visit. We have reviewed hermedications again today. She has been on Celebrex for quite some time and thiscould certainly cause fluid overload. It is not clear whatthe exact etiologyof her continued symptoms are. It [...] She may sit in her chair for llxdosp47-19 hours every day. She states that it's because of her knee pain that sheis unable to get up and move around. We have suggested that she needs to getup and move some. She also needs to make changes in her diet.The patientdoes complain of a sensation of her [...] responsive to diuretics in the past. The patientd enies any chest pain or unusual shortness of [...] cardiac symptoms since her last visit. She iscontinuingto have problems with her right knee replacement. [...] (gastroesophageal reflux disease)- HTN (hypertension)- OA (osteoarthritis) ofknee- JEREMY (obstructive sleep apnea)- Pulmonary HTN (HCC)- [...] of Onset- Adopted: Yes- Family history unknown: YesALLERGIES:ALLERGIESAllergen Reactions- Latex Rash- Penicillin Rash- Sulfa (Sulfonamide * RashMEDICATIONS:pantoprazole (PROTONIX) 40 mg grps Take 40 mg by mouth twice daily before meals(0600/1600).cetirizine (ZYRTEC) 10 mg tablet Take 10 mg by mouth once daily.oxyCODONE-acetaminophen (PERCOCET) 5-325 mg tablet Take 1 tablet by mouth asneeded.fluticasone (FLONASE) 50 mcg/actuation nasal spray Use 2 Sprays in each nostriltwice daily at 6AM and 9PM.albuterol HFA (PROVENTIL HFA, VENTOLIN HFA) 90 mcg/actuation inhaler Inhale 2Puffs as instructed as needed for Wheezing/Shortness of Breath.budesonide- formoterol (SYMBICORT) 160-4.5 mcg/actuation inhaler Inhale 2 Puffsasinstructed twice daily.lisinopril (ZESTRIL, PRINIVIL) 40 mg tablet [...] Conjunctiva normal, sclera normalNeck: No jugular venous disten tion, no palpable thyromegaly.Heart: Regular rhythm, S1, S2 normal, no S3, no S4. No murmur. No carotidbruits.Respiratory: Mildly decreased breath sounds bilaterally. Good respiratoryeffort.GI: Soft,nontender, bowel sounds normal, no palpable hepatosplenomegalyExtremities: Normal pulses in distal lower extremities. Moderate left lowerextremity edema with trivial to mild right lower extremity edema. There isskin discoloration in the right lower extremityNeuro: Alert, cooperative with no focal deficit.Psych: Pleasant and cooperative.Skin: No rashes or wounds.CARDIOVASCULAR MEDICINE TESTING:Echocardiograms:11/28/2014 - a 2-D echocardi[facility] performed [facility] normal left ventricular systolic function with an ejection fraction of60%. There was no significant valvular disease identified. There was nocomment on diastolic function.02/24/2017 - a 2-D echocardiogram performed at the [facility] low normal to mildly reduced left ventricular systolic function withan ejection fraction of 45-50%. There was minimal concentric left ventricularhypertrophypresent. There was evidence of grade 1 diastolic dysfunction.There was mild mitral regurgitation. No estimate a right ventricular systolicpressure was possible on this study.Stress Evaluations:02/26/2016 - a Lexiscan nuclear stress evaluation at the [facility] a left ventricular ejection fraction of 50% with abnormal septal wallmotion. There was a small defect involving the inferior oh apical wall whichwas fixed. This was felt to likely represent artifact. There was no otherevidence of Lexiscan stress-induced ischemia.02/24/2017 - [facility] systolic function with an ejectionfraction of 48%. There was a moderate sized anterior septal defect which waspartially reversible noted. This was read as suggestive of possiblestress-induced ischemia.Cardiac Catheterizations:07/16/2004- [facility]. There was moderately decreased leftventricular systolic function noted with an ejection fractionof 30%.Moderately elevated right heart pressures and a normal cardiac index werenoted. The patient was continued on Demadex, Diovan, around oh lactone, Coreg3.125 mg twice a day.06/12/2005 - a right and left heart catheterization was performed at [facility] revealing nonobstructive coronary artery disease,left ventricular ejection fraction of 50%, moderate pulmonary hypertension,severely elevated left ventricular end-diastolic pressure, normal cardiacoutput and normal cardiac index. The patient was started on Lasix 40 mg twicea day.02/14/2008 - a right and left heart catheterization was performed at [facility] revealing mild 3 vessel coronary arterydisease, mildly reduced left ventricular systolic function (no ejectionfraction noted on the report), mild mitral regurgitation, mildly elevated leftventricular end-diastolic pressure, mild pulmonary hypertension and a normalcardiac index. No changes were made to the medical regimen.02/28/2013 - a right and left heart catheterization performed at [facility] reveals mild 3 vessel coronary artery disease, mild pulmonaryhypertension, preserved cardiac index and no evidence of cardiac shunt. Thisstudy was performed due to an abnormal stress test and a suspected patentforamen ovale versus ASD on echocardiogram. Medical therapy was recommendedbut not detailed in the report.03/05/2017 - a right and left heart catheterization was performed at [facility] revealing nonobstru ctive coronary artery disease, mildlyreduced left ventricular systolic function by noninvasive imaging, moderatelyelevated right-sided heart pressures and mildly elevated pulmonary capillarywedge pressure, low normal cardiac output, low normal cardiac index andmoderate to severe systemic hypertension. Lasix 20 mg daily was re-added. Thepatient was continued on an angiotensin-converting enzyme inhibitor and a betablocker was recommended.Electrocardiograms:05/16/2017 - a 12-lead electrocardiogramreveals normal sinus rhythm at 58 bpm. There is a left bundle branch block present.06/30/2017 - a 12-lead electrocardiogram reveals sinus bradycardia at 53 bpm.There is a left bundle branch block pres ent.MEDICAL DECISION MAKING:Moderate risk with multiple cardiovascular comorbidities that require ongoingtreatment and evaluations.IMPRESSION:1. Dyspnea on exertion - ICD9: 786.09, ICD10: R06.09 (primary diagnosis),likely multi-factorial, worsened by underlying pulmonary disease, obstructivesleep ap eduar not treated, history of both systolic and diastolic heart failure,intolerant of diuretic therapy, gastroesophageal reflux disease and obesity.Patient is very inactive at home. No changes over thepast 1 month. Stable.2. Edema, unspecified type - [...] 729.1, ICD10: M79.79. Restrictive lung disease - ICD9:518.89, ICD10: J98.4, care per pulmonology.10. Obesity, Class III, BMI 40-49.9 (morbid obesity) (HCC) - ICD9: 278.01,ICD10: E66.0111. Preoperative cardiovascular evaluation prior to planned right kneereplacement. The patient's risk for the surgery as moderate. I would placeher risk in the 5-10% range for any redo surgery. No further workup isnecessary prior to that procedure.12. Nonobstructive coronary artery disease by multiple cardiaccatheterizations.PLAN:Continue current medical therapy.Regul ar aerobic activity as able. We have discussed that this may be somesimple arm exercises while she is seated.Continue with efforts at weight loss.Patient will follow-up with me in 3 months or sooner if necessary.A copy of this note will be provided to the requesting physician by way [facility] or to the requesting physician via U.S. Mail.This document was generated utilizing [employer] dictation. I have reviewed andverified that the contents of the document are accurate with the exception ofminor grammatical, spelling and punctuation errors.CONTACT INFORMATION:Thank you for allowing us to participate in the care of this very pleasantpatient. Please free to contact us if we can be of any further assistance.Italo Ann MD, [facility] and Mechelle DoddCtpartment of Cardiovascular MedicineSelect Medical [facility] Clinic [facility], Beachwoodrt and [facility] Institute[address] [address]Dkwjix: [phone] Referring Provider: PETER SOSA [[id number]]Allergies As of Date: 05/27/2018 Noted Allergy ReactionLATEX 06/30/2017 2 - RashPENICILLIN 06/30/2017 2 - RashSULFA (SULFONAMIDE ANTIBIOTICS) 06/30/2017 2 - RashDate Reviewed: 05/27/2018Reviewed by:Italo Ann - Fully AssessedReason for Visit: Follow [...] mouth at bedtime as * FIBERCON ORAL Takeby mouth. TIZANIDINE 4 MG CAPSULE Take by [...] FOR* Status:Closed by LUC ANN MD on 05/27/18[facility] CenterPROESSon [id number] mass concHNO ID: [id number]: Italo Valladares HersheyService: (none)Author Type: PhysicianType: Progress N otesFiled: 05/27/2018 1:19 PMNote Text:[facility] InstituteWay[facility] Mechelle Mariscal Department of Cardiovascular MedicineOUTPATIENT VISIT DATE 05/27/18OUTPATIENT VISIT TYPEESTABLISHEDPRIMARY CARE PHYSICIAN:Peter Sosa, DO[address] [place] [address]Eznqf: [phone]: [phone] COMPLAINT:Patient presents with:Follow UpHISTORY OF PRESENT ILLNESS:Renuka Padron is a 61year old female with a complex past medical history ofchronic diastolic heart failure, mild nonobstructive coronary arterydisease, possible secundum type atrial septal defect, essentialhypertension, pulmonary hypertension, obstructive sleep apnea intolerantof face mask, gastroesophageal reflux disease, fibromyalgia and eitherreactive or restrictive lung disease.06/30/2017The patient presents today as a new consult for weight gain and swelling.She had previously been evaluated and under the careof Dr. [facility]. She has had multiple procedures [...] pounds since February of this year. She doesstate that shewas taking rymo-hey-xlathyz diet pills until recently. They were notworking. 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 We have reviewed her medications againtoday. She hasbeen on Celebrex for quite some time and this could certainly cause fluidoverload. Itis not clear what the exact etiology of [...] hassome swelling in her knees and thighs bi laterally. She has been unable totolerate diuretics in the past. She has had multiple invasiveevaluations. Her son states that she truly is not active at home at all.She may sit in her chair for roughly 10-12 hours every day. She statesthat it's because of her knee pain that she is unable to get upand movearound. We have suggested that she needs to get up and move some. Herb needs to make changes in her diet. The patient does complain of asensation of her heartbeat in her back that radiatesaround to her chestat times. This does not [...] hasnot been able to lose weight. She actuallyhas gained 7 pounds since herlast visit. She [...] (coronary artery disease)- CHF (congestive heart failure) ([facility])- DM (diabetes mellitus) ([facility])- Fibromyalgia- GERD (gastroesophageal reflux disease)- HTN (hypertension)- OA (osteoarthritis) of knee- JEREMY (obstructive sleep apnea)- Pulmonary HTN ([facility])- Restrictive lung disease-Vitamin D deficiencyPAST SURGICAL HISTORYProcedure Laterality Date- APPENDECTOMY HX- CARDIAC CATH 02/2013 Mild CAD / Pulm HTN- CARDIAC CATH 03/05/2017 Normal- COLONOSCOPY 02/2013- ECHO 05/2009 EF 30%LVH- EGD 02/2013- FOOT SURGERY HX- GASTRIC BYPASS HX- PAST SURGICAL HISTORY OF - TONSILLECTOMY HXSocial HistorySubstance Use Topics- Smoking status: Passive Smoke Exposure - Never Smoker Types: Cigarettes- Smokeless tobacco: Never Used- Alcohol use NoFAMILY HISTORYProblem Relation Age of Onset- Adopted: Yes- Family history unknown: YesALLERGIES:ALLERGIESAllergen Reactions- Latex Rash- Penicillin Rash- Sulfa (Sulfonamide * RashMEDICATIONS:pantoprazole (PROTONIX) 40 mg grps Take 40 mg bymouth twice daily beforemeals (0600/1600).cetirizine (ZYRTEC) 10 mg tablet Take 10 mg by mouth oncedaily.oxyCODONE-acetaminophen (PERCOCET) 5-325 mg tablet Take 1 tablet by mouthas needed.fluticasone (FLONASE) 50 mcg/actuation nasal spray Use 2 Sprays in eachnostril twice daily at 6AM and 9PM.albuterol HFA (PROVENTIL HFA, VENTOLIN HFA) 90 mcg/actuation inhalerInhale 2 Puffs as instructed as needed for Wheezing/Shortness of Breath.budesonide-formoterol (SYMBICORT) 160-4.5 mcg/actuation inhaler Inhale 2Puffs as instructed twice daily.lisinopril (ZESTRIL, PRINIVIL) 40 mg tablet Take 1 tablet bymouth oncedaily.hydrOXYzine HCl (ATARAX) 10 mg tablet Take [...] no S3, no S4. No murmur. No carotidbruits.Respiratory: Mildly decreased breath sounds bilaterally. Good respiratoryeffort.GI: Soft, nontender, bowel sounds normal, no palpable hepatosplenomegalyExtremities: Normal pulses in distal lower extremities. Moderate leftlower extremity edema with trivial to mild right lower extremity edema.There is skin discoloration in the right lower extremityNeuro: Alert, cooperativewith no focal deficit.Psych: Pleasant and cooperative.Skin: No rashes or wounds.CARDIOVASCULAR MEDICINE TESTING:Echocardiograms:11/28/2014 - [facility] with an ejectionfraction of 60%. There was no sign ificant valvular disease identified.There was no comment on diastolic function.02/24/2017 - [facility] mildly reduced left ventricular systolic functionwith an ejection fraction of 45-50%. There was minimal concentric leftventricular hypertrophy present. There was evidence of grade 1 diastolicdysfunction. There was mild mitral regurgitation. No estimate a rightventricular systolic pressure was possible on this study.Stress Debby luations:02/26/2016 - a Lexiscan nuclear stress evaluation at the [facility] revealed a left ventricular ejection fraction of 50% with abnormalseptal wall motion. There was a small defect involving the inferior ohapical wall which was fixed. This was felt to likely represent artifact.There was no other evidence of Lexiscan stress-induced ischemia.02/24/2017 - a Lexiscan nuclear stress evaluation at the [facility] revealed mildly diminished left ventricular systolic function withan ejection fraction of 48%. There was a moderate sized anterior septaldefect which was partially reversible noted. This was read as suggestiveof possible stress-induced ischemia.Cardiac Catheterizations:07/16/2004 - a cardiac catheterization performed at the [facility] revealed normalcoronary arteries. There was moderately decreasedleft ventricular systolic function noted with an ejection fraction of 30%. Moderately elevated right heart pressures and a normal cardiac index werenoted. The patient was continued on Demadex, Diovan, around oh lactone,Coreg 3.125 mg twice a day.06/12/2005 - a right and left heart catheterization was performed at [facility] revealing nonobstructive coronary arterydisease, left ventricular ejection fraction of 50%, moderate pulmo naryhypertension, severely elevated left ventricular end-diastolic pressure,normal cardiac output and normal cardiac index. The patient was startedon Lasix 40 mg twice a day.02/14/2008 - a right and left heart catheterization was performed at [facility] revealing mild 3 vessel coronaryartery disease, mildly reduced left ventricular systolic function (noejection fraction noted on the report), mild mitral regurgitation, mildlyelevated left ventricular end-diastolic pressure, mild pulmonaryhypertension and a normal cardiac index. No changes were made to themedical regimen.02/28/2013 - a right and left heart catheterization performed at [facility] reveals mild 3 vessel coronary artery disease, mildpulmonary hypertension, preserved cardiac index and no evidence of cardiacshunt. This study was performed due to an abnormal stress test and asuspected patent foramen ovale versus ASD on echocardiogram. Medicaltherapy was recommended but not detailed in the report.03/05/2017 - a right and left heart catheterization was performed at [facility] revealing nonobstructive coronary artery disease,mildly reduced left ventricular systolic function by noninvasive imaging,moderately elevated right-sided heart pressures and mildly elevatedpulmonary capillary wedge pressure, low normal cardiac output, low normalcardiac index and moderate to severe systemic hypertension. Lasix 20 mgdaily was re-added. The patient was continued on anangiotensin-converting enzyme inhibitor and a beta lianna wasrecommended.Electrocardiograms:05/16/2017 - a 12-lead electrocardiogram reveals normal sinus rhythm at 58bpm. There is a left bundle branch block present.06/30/2017 - a 12-lead electrocardiogram reveals sinus bradycardia at 53bpm. There is a left bundle branch block present.MEDICAL DECISION MAKING:Moderate risk with multiple cardiovascular comorbidities that requireongoing treatment and evaluations.IMPRESSION:1. Dyspnea on exertion - ICD9: 786.09, ICD10: [...] #1. Persistent some degree. Slightlybetter without Celebrex. Patientinactive for large amounts of time. Notresponsive to diuretics in the past. No significant change.3. Chronic combined systolic and diastolic congestive heart failure (HCC)- ICD9: 428.42, 428.0, ICD10: I50.42, most recent echocardiogram withimproved systolic function and grade 1 diastolic dysfunction. Currentlyonly on lisinopril due to the patient not tolerating diuretic therapy.The patient statesthat her previous physicians took her off ofcarvedilol. This was due to low blood pressures. Diuretics in the pasthave not significantly improved her lower extremity edema. No changesover the past month.4. Essential hypertension - ICD9: 401.9, ICD10: I10 Patient relatesconstant right knee pain which may be driving her blood pressure higher.Blood pressure better today.5. Pulmonary HTN ([facility]) - ICD9: 416.8, ICD10: I27.2, diagnosed by multiplecardiac catheterizations in the past.6. JEREMY (obstructivesleep apnea) - ICD9: 327.23, ICD10: G47.33, notcurrently treated as the patient is intolerant of her mask.7. Gastroesophageal reflux disease, esophagitis presence not specified -ICD9: 530.81, ICD10: K21.9, care per primary care team.8. Fibromyalgia - ICD9: 729.1, ICD10: M79.79. Restrictive lung disease - ICD9: 518.89, ICD10: J98.4, care perpulmonology.10. Obesity, Class III, BMI 40-49.9 (morbid obesity) ([facility]) - ICD9: 278.01,ICD10: E66.0111. Preoperative cardiovascular evaluation prior to planned right kneereplacement. The patient's risk for the surgery as moderate. I wouldplace her risk in the 5- 10% range for any redo surgery. No further workupis necessary prior to that procedure.12. Nonobstructive coronary artery disease by multiple cardiaccatheterizations.PLAN:Continue current medical therapy.Regular aerobic activity as able. We have discussed that this may be somesimple arm exercises while she is seated.Continue with efforts at weight loss.Patient will follow-up with me in 3 monthsor sooner if necessary.A copy of this note will be provided to the requesting physician by way [facility] or to the requesting physician via U.S. Mail.This document was generated utilizing [employer]. I have reviewedand verified that the contents of the document are accurate with theexception of minor grammatical, spelling and punctuation errors.CONTACT INFORMATION:Thank you for allowing us to participate in the care of this very pleasantpatient. Please free to contact us if we can be of any furtherassistance.Italo Ann MD, [facility] and Mechelle DoddNavos Healthment of Cardiovascular MedicineSelect Medical [facility], Beachwoodrt and [facility] Institute[address] [address]Vskbip: [phone] [facility] CenterCNOVon [id number] Visit (CARDERIC) --------RENUKA PADRON ([id number]) 1955 FDate Time Provider Department04/08/18 12:30 PM ITALO ANN During your visit today, we recorded the following information about you: Pulse Respiration Blood pressure Weight 75/minute 18/minute 163/70 117 kg Height 1.6 Cece Ann MD 04/08/2018 12:59 PM [facility] and Mechelle Dodd Department of Cardiovascular MedicineOUTPATIENT VISIT DATE 04/08/18OUTPATIENT VISIT TYPEESTABLISHEDPRIMARY CARE PHYSICIAN:Peter Sosa DO[address] [place] [address]Yflis: [phone]: [phone] COMPLAINT:Patient presents with:Follow UpHISTORY OF PRESENT ILLNESS:Renuka Padron is a 61 year old female with [...] and under the care of Dr. Schilling [facility]. Danika had multiple procedures performed which are [...] of this year. She does statethat she wastaking qzvi-ube-qrlhrns diet pills until recently. They were notworking. The patient has chronic complaints of dyspnea and dyspnea onexertion. She has been treated with lisinopril for her blood pressure. TheLasix was used to try to decrease her edema but was not successful. Thepatient and her son seem frustrated with the [facility]. By my review of the testing it seems the previouscardiologist was going by the guidelines with continued reasonable testinginan effort to try to help the patient's [...] are. It is most likely that his multi- factorial.The patient is also facing a right knee replacement in the near future. Shedoes not have significant coronary artery disease.01/04/2018The patient presents today for a roughly 6 month follow-up. The patientfeelsabout the same as she did before. She stopped her Celebrex and had may be aslight improvement in her swelling. Unfortunately she still has some swellingin her knees and thighs bilaterally. She has been unable to tolerate diureticsin the past. She has had multiple invasive evaluations. Her son states thatarleth gregory is not active at home at all. She may sit in her chair for ozzrgxc37-34 hours ev dave day. She states that it's because of her knee pain that sheis unable to get up and move around.We have suggested that she needs to getup [...] istrying to change her lifestyle. She still hassome swelling in her lowerextremities. This was not responsive to diuretics in the past. The patient denies any chest pain or unusual shortness of breath. The patient informs meat the end of our interview that she is actually taking her lisinopril 20 mgtwice a day and not once a day as listed in ourmedications. She does useibuprofen occasionally. Her blood pressure remains moderately elevated today.She believes this is because of constant right knee pain.PAST MEDICAL HISTORYDiagnosis Date- Anxiety- ASD (atrial septal defect)- Asthma- CAD (coronary artery disease)- CHF (congestive heart failure) (HCC)- DM (diabetes mellitus) (HCC)- Fibromyalgia- GERD (gastroesophageal reflux disease)- HTN (hypertension)- OA (osteoarthritis) of knee- JEREMY (obstructive sleep apnea)- Pulmonary HTN- Restrictivelung disease- Vitamin D deficiencyPAST SURGICAL HISTORYProcedure Laterality [...] of Onset- Adopted: Yes- Family history unknown: YesALLERGIES:ALLERGIESAllergen Reactions- Latex Rash- Penicillin Rash- Sulfa (Sulfonamide * RashMEDICATIONS:pantoprazole (PROTONIX) 40 mg injection Inject intravenously DAILY [...] personally interviewed, confirmed and edited the above informa tion ifobtained by others.PHYSICAL EXAMINATION:BP 163/70 Pulse 75 Resp 18 Ht 160 cm (5' 3 ) Wt 117 kg (258 lb) SpO2 98% BMI 45.70 kg/m?General: Well appearing, in no acute distress.Eyes: Conjunctiva normal, sclera normalNeck: No jugular venous distention, no palpable thyromegaly.Heart: Regular rhythm, S1, S2 normal, no S3, no S4. No murmur. No carotidbruits.Respiratory: Mildly decreased breath sounds bilaterally. Good respiratoryeffort.GI: Soft, nontender, bowel sounds normal, no palpable hepatosplenomegalyExtremities: Normal pulses in distal lower extremities. Moderate 2+ bilaterallower extremity edema, left greater than right. There is skin discoloration inthe right lower extrem ityNeuro: Alert, cooperative with no focal deficit.Psych: Pleasant and cooperative.Skin: No rashes or wounds.CARDIOVASCULAR MEDICINE TESTING:Echocardiograms:11/28/2014 - [facility] function with an ejection fraction of60%. There was no significant valvular disease identified. There was nocomment on diastolic function.02/24/2017 - [facility] to mildly reduced left ventricular systolic function withan ejection fraction of 45-50%. There was mi nimal concentric left ventricularhypertrophy present. There was evidence of grade 1 diastolic dysfunction.There was mild mitral regurgitation. No estimate a right ventricular systolicpressure was possible on this study.Stress Evaluations:02/26/2016 - [facility] fraction of 50% with abnormal septal wallmotion. There was a small defect involving the inferior oh apical wall whichwas fixed. This was felt to likely represent artifact. There was no otherevidence of Lexiscan stress-induced ischemia.02/24/2017 -[facility] ventricular systolic function with an ejectionfraction of 48%. There was a moderate sized anterior septal defect which waspartially reversible noted. This was read as suggestive of possiblestress-inducedischemia.Cardiac Catheterizations:07/16/2004 - [facility]. There was moderately decreased leftventricular systolic function noted with an ejection fraction of 30%.Moderately elevated right heart pressures and anormal cardiac index werenoted. The patient was continued on Demadex, Diovan, around oh lactone, Cor eg3.125 mg twice a day.06/12/2005 - a right and left heart catheterization was performed at [facility] revealing nonobstructive coronary artery disease,left ventricular ejection fraction of 50%, moderate pulmonary hypertension,severely elevated left ventricular end-diastolic pressure, normal cardiacoutput and normal cardiac index. The patient was started on Lasix 40 mg twicea day.02/14/2008 - a right and left heart catheterization was performed at [facility] revealing mild 3 vessel coronary arterydisease, mildly reduced left ventricular systolic function (no ejectionfraction noted on the report), mild mitral regurgitation, mildly elevated leftventricular end-diastolic pressure, mild pulmonary hypertension and a normalcardiac index. No changeswere made to the medical regimen.02/28/2013 - a right and left heart catheterization performed at [facility] reveals mild 3 vessel coronary artery disease, mild pulmonaryhypertension, preserved cardiac index and no evidence of cardiac shunt. Thisstudy was performed due to an abnormal stresstest and a suspected patentforamen ovale versus ASD on echocardiogram. Medical therapy was recommendedbut not detailed in the report.03/05/2017 - a right and left heart catheterization was performed at [facility] revealing nonobstructive coronary artery disease, mildlyreduced left ventricular systolic function by noninvasive imaging, moderatelyelevated right-sided heart pressures andmildly elevated pulmonary capillarywedge pressure, low normal cardiac output, low normal cardiac index andmoderate to severe systemic hypertension. Lasix 20 mg daily was re-added. Thepatient was continued on an angiotensin-converting enzyme inhibitor and a betablocker was recommended.Electrocardiograms:05/16/2017 - a 12-lead electrocardiogram reveals normal sinus rhythm at 58 bpm. There is a leftbundle branch block present.06/30/2017 - a 12-lead electrocardiogram [...] type - ICD9: 782.3, ICD10: R60.9, likely multi- factorialsimilar to problem #1. Persistent some degree. Slightly better withoutCelebrex. Patient inactive for large amounts of time. Not responsive todiuretics in the past.3. Chronic combined systolic and diastolic congestive heart failure (HCC) -ICD9: 428.42, 428.0, ICD10: I50.42, most recent echo cardiogram with improvedsystolic function and grade 1 diastolic [...] thatprocedure.12. Nonobstructive coronary artery disease by multiple cardiaccatheterizations.13. Lower extremity cramping at night. Patient worried about hypokalemia.PLAN:Continue current medical therapy.Basic metabolic profile to evaluate renal function and potassium while on upperdose lisinopril.We have had a very long discussion regarding significant changes in thepatient's diet in an effort to help her lose weight. Weight loss maydefinitely help her symptoms. I have suggested the Nostalgia Bingo diet. I havealso discussed with her a pre-diabeticdiet.Regular aerobic activity as able. We have discussed that this may be somesimple arm exercises while she is seated.Considered a referral to Dr. Guevara for evaluation of possible lowerextremity venous insufficiency or even lymphedema.Discussed a weight loss of 5-10 pounds over the next 3 months .Patient will follow-up with me in 1 month or sooner if necessary.A copy of this note will be provided to the requesting physician by way ofshared medical record or to the requesting physician via U.S. Mail.This document was generated utilizing [employer] dictation. I have reviewed andverified that thecontents of the document are accurate with the exception ofminor grammatical, spelling and punctuation errors.CONTACT INFORMATION:Thank you for allowing us to participate in the care of this very pleasantpatient. Please free to contact us if we can be of any further assistance.Italo Ann MD, FACCRnorton suburban hospitalt and Mechelle Manciainscription house health centerment of Cardiovascular MedicineSelect Medical Cleveland Clinic Rehabilitation [facility], Beachwoodrt and Vascular InstituteChristopher Ville [address] [place], [place] [address]Kmzpbd: [phone] Referring Provider: PETER SOSA [[id number]]Allergies As of Date: 04/08/2018 Noted Allergy ReactionLATEX 06/30/2017 2 - RashPENICILLIN 06/30/2017 2 - RashSULFA (SULFONAMIDE ANTIBIOTICS) 06/30/2017 2 - RashDate Reviewed: 04/08/2018Reviewed by: Italo Ann - Fully AssessedReason f or Visit: Follow Up [171]Primary Visit Diagnosis:Chronic combined systolic and diastolic congestiveheart failure (HCC) [I50.42] Other Visit Diagnoses:Essential hypertension [I10] Pulmonary HTN [I27.20] Obesity, Class III, BMI >= 40 (morbid obesity) E66.01 [E66.01] Cramps of left lower extremity [R25.2]Order(s):lisinopril (ZESTRIL, PRINIVIL) 40 mg tabletTake 1 tablet by mouth once daily.Disp: 90 tabletRfl: 3 BASIC METABOLIC PNL [SQBMP] Order #: [id number] FUTUREPrescriptions as of 04/08/2018Sig: LISINOPRIL 40 MG TABLET Take 1 tablet [...] BMI >= 40 (morbid obesity) *INVALID FOR* Chroniccombined systolic and diastolic congest*INVALID FOR* Pulmonary HTN (HCC) [I27.20] INVALID FOR* Essential hypertension [I10] INVALID FOR* JREEMY (obstructive sleep apnea) [G47.33] INVALID FOR* Gastroesophageal reflux disease [K21.9] INVALID FOR* Fibromyalgia [M79.7] INVALID FOR* Restrictive lung disease [J98.4] INVALID FOR* Cramps of left lower extremity [R25.2] INVALID FOR*Prescriptions ordered thisencounter Disp Refills Start End LISINOPRIL 40 MG TABLET 90 t* 3 04/08/2018 Route: ORAL Sig: Take 1tablet by mouth once daily.Medications Discontinued During This Encounter lisinopril (ZESTRIL, PRINI ABDIAZIZ) 20 mg* 04/08/2018 Class: Historical Med Route: ORAL Sig: Take by mouth once daily. Disc: Reasonfor discontinue is not on file. Status:Closed by LUC ANN MD on 04/08/18Normal [facility] SystemPROGRESSon [id number] mass concHNO ID: [id number]: Italo FultonyService: (none)Author Type: PhysicianType: Progress NotesFiled: 04/08/2018 12:59 PMNote Text:Heart and Vascular InstituteBeverly Hills and [facility] Department of Cardiovascular MedicineOUTPATIENT VISIT DATE 04/08/18OUTPATIENT VISIT TYPEESTABLISHEDPRATRIUM HEALTH WAKE FOR[facility] CENTERRY CARE PHYSICIAN:MISAEL Garcia[address] [place] [address]Xecwu: [phone]: [phone] COMPLAINT:Patient presents with:Follow UpHISTORY OF PRESENT ILLNESS:Renuka Padron is a 61 year old female with [...] and under the care of Dr. Schilling [facility]. She has had multiple procedures performed which are detailed below. The patient relates being on Lasix in the past for her lower extremityedema. Apparently the doses were gradually increased due to lack ofresponse. Eventually the patient developed significant renalinsufficiency and the Lasix had to be decreased or stopped. The patientstates that she had terrible crampingwith the doses of Lasix. She statesshe was unable to continue taking it. She is now not currently on anydiuretic therapy. She believes the swelling has worsened in her lowerextremities all the way upher legs and into her abdomen. She has gainedapproximately 11 pounds since February of this year. She does state that shewas taking zdzk-khb-gtrcrrd diet pills until recently. They were notworking. The patient has chronic complaints of dyspnea and dyspnea onexertion. She has been treated with lisinoprilfor her blood pressure.The Lasix was used to try to decrease her edema but was not successful.The patient and her son seem frustrated with the care they were given bythe previous cardiology team. 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 I have revi ewed herprevious testing and it is documented below. [...] for 3 month follow-up visit. The patient hasmadesome dietary changes. She has lost 2 pounds [...] DM (diabetes mellitus) (HCC)- Fibromyalgia- GERD (gastroesophageal refluxdisease)- HTN (hypertension)- OA (osteoarthritis) of knee- JEREMY (obstructive sleep apnea)- PulmonaryHTN- Restrictive lung disease- Vitamin D deficiencyPAST SURGICAL HISTORYProcedure Laterality Date- APPENDECTOMY HX- CARDIAC CATH 02/2013 Mild CAD / Pulm HTN- CARDIAC CATH 03/05/2017 Normal- COLONOSCOPY 02/2013- ECHO 05/2009 EF 30% LVH- EGD 02/2013- FOOT SURGERY HX- GASTRIC BYPASS HX- PAST SURGICAL H ISTORY OF - TONSILLECTOMY HXSocial HistorySubstance Use Topics- Smoking status: Passive Smoke Exposure - Never Smoker Types: Cigarettes- Smokeless tobacco: Never Used- Alcohol use NoFAMILY HISTORYProblem Relation Age of Onset- Adopted: Yes- Family history unknown: YesALLERGIES:ALLERGIESAllergen Reactions- Latex Rash- Penicillin Rash- Sulfa (Sulfonamide * RashMEDICATIONS:pantoprazole (PROTONIX) 40 mg injection Inject intravenously DAILY [...] systems are unremarkable.I personally interviewed, confirmed and editedthe above information ifobtained by others.PHYSICAL EXAMINATION:BP 163/70 Pulse 75 Resp 18 Ht160 cm (5' 3 ) Wt 117 kg (258lb) SpO2 98% BMI 45.70 kg/m?General: Well appearing, in no acute distress.Eyes: Conjunctiva normal, sclera normalNeck: No jugular venous distention, no palpable thyromegaly.Heart: Regular rhythm, S1, S2 normal, no S3, no S4. No murmur. No carotidbruits.Respiratory: Mildly decreased breath sounds bilaterally. Good respiratoryeffort.GI: Soft, nontender, bowel sounds normal, no palpable hepatosplenomegalyExtremities: Normal pulses in distal lower extremities. Moderate 2+bilateral lower extremity edema, left greater than right. There is skindiscoloration in the right lower extremityNeuro: Alert, cooperative with no focal deficit.Psych: Pleasant and cooperative.Skin: No rashes or wounds.CARDIOVASCULAR MEDICINE TESTING:Echocardiograms:11/28/2014 - [facility] with an ejectionfraction of 60%. There was no significant valvular disease identified.There was no comment on diastolic function.02/24/2017 - [facility] mildly reduced left ventricular systolic functionwith an ejection fraction of 45-50%. There was minimal concentric leftventricular hypertrophy present. There was evidence of grade 1 diastolicdysfunction. There was mild mitral regurgitation. No estimate a rightventricular systolicpressure was possible on this study.Stress Evaluations:02/26/2016 - a Lexiscan nuclear stress evaluation at the [facility] revealed a left ventricular ejection fraction of 50% with abnormalse ptal wall motion. There was a small defect involving the inferior ohapical wall which was fixed. This was felt to likely represent artifact.There was no other evidence of Lexiscan stress-induced ischemia.02/24/2017 - a Lexiscan nuclear stress evaluation at the [facility] revealed mildly diminished left ventricular systolic function withan ejection fraction of 48%. There was a moderate sized anterior septaldefect which was partially reversible noted. This was read as suggestiveof possible stress-induced ischemia.Cardiac Catheterizations:07/16/2004 - [facility] revealed normal coronary arteries. There was moderately decreasedleftventricular systolic function noted with an ejection fraction of 30%. Moderately elevated right heart pressures and a normal cardiac index werenoted. The patient was continued on Demadex, Diovan, around oh lactone,Coreg 3.125 mg twice a day.06/12/2005 - a right and left heart catheterization was performed at [facility] revealing nonobstructive coronary arterydisease, left ventricular ejection fraction of 50%, moderate pulmonaryhypertension, severely elevated left ventricular end-diastolic pressure,normal cardiac output and normal cardiac index. The patient was startedon Lasix 40 mg twice a day.02/14/2008 - a right and left heart catheterization was performed at [facility] revealing mild 3 vessel coronaryartery disease, mildly reduced left ventricular systolic function (noejection fraction noted on the report), mild mitral regurgitation, mildlyelevated left ventricular end-diastolic pressure, mild pulmonaryhypertension and a normal cardiacindex. No changes were made to themedical regimen.02/28/2013 - a right and left heart catheterization performed at [facility] reveals mild 3 vessel coronary artery disease, mildpulmonary hypertension, preserved cardiac index and no evidence of cardiacshunt. This study was performed due to an abnormal stress test and asuspected patent foramen ovale versus ASD on echocardiogram. Medicaltherapy was recommended but not detailed in the report.03/05/2017 - a right and left heart catheterization was performed at [facility] revealing nonobstructive coronary artery disease,mildly reduced left ventricular systolic function by noninvasive imaging,moderately elevated right-sided heart pressures and mildly elevatedpulmonary capillary wedge pressure, low normal cardiac output, low normalcardiac index and moderate to severe systemic hypertension. Lasix 20 mgdaily was re-added. Thepatient was continued on anangiotensin- converting enzyme inhibitor and a beta lianna wasrecommended .Electrocardiograms:05/16/2017 - a 12-lead electrocardiogram reveals normal sinus rhythm at 58bpm. There is a left bundle branch block present.06/30/2017 - a 12-lead electrocardiogram reveals sinus bradycardia at 53bpm. There is a left bundle branch block present.IMPRESSION:1. Dyspnea on exertion -ICD9: 786.09, ICD10: R06.09 (primary diagnosis),likely multi-factorial, worsened [...] failure (HCC)- ICD9: 428.42, 428.0, ICD10: I50.42, mo st recent echocardiogram withimproved systolic function and grade [...] G47.33, notcurrently treated as the patient is intolerantof her mask.7. Gastroesophageal reflux disease, esophagitis presence [...] the surgery as moderate. I wouldplace her riskin the 5-10% range. No further workup is necessary priorto that procedure.12. Nonobstructive coronary artery disease by multiple cardiaccatheterizations.13. Lower extremity cramping at night. Patientworried abouthypokalemia.PLAN:Continue current medical therapy.Basic metabolic profile to evaluate renal function and potassium while onupper dose lisinopril.We have had a very long discussion regarding significant changes in thepatient's diet in an effort to help her lose weight. Weight loss maydefinitely help her symptoms. I have suggested the Nostalgia Bingo diet. Keira also discussed with her a pre- diabetic diet.Regular aerobic activity as able. We have discussed that this may be somesimple armexercises while she is seated.Considered a referral to [...] via U.S. Mail.This document was generated utilizing ExtraFootie dictation. I have reviewedand verified that the contents of the document are accurate with theexception of minor grammatical, spelling and punctuation errors.CONTACT INFORMATION:Thank you for allowing us to participate in the care of this very pleasantpatient. Please free to contact us if we can be of any furtherassistance.Italo Ann MD, [facility] and Mechelle Manciainscription house health centerment of Cardiovascular MedicineSelect Medical Cleveland Clinic [facility], [facility]rt and [facility] Institute[address] [address]Vcclbu: [phone] NoOhioHealth Doctors [facility] [id number] Visit (JAMAL) --------RENUKA PADRON ([id number]) 1955 FDate Time Provider Department01/04/18 12:30 PM ITALO ANN During your visit today, we recorded the following information about you: Pulse Respiration Blood pressure Weight 57/minute 18/minute 165/72 117.9 kg Height 1.6 Cece Ann MD 01/04/2018 12:56 PM [facility] and Mechelle Dodd Department of Cardiovascular MedicineOUTPATIENT VISIT DATE 01/04/18OUTPATIENT VISIT TYPEESTABLISHEDPRIMARY CARE PHYSICIAN:Peter Sosa DO[address] [place] [address]Qshrn: [phone]: [phone] COMPLAINT:Patient presents with:Follow UpHISTORY OF PRESENT ILLNESS:Renuka Padron is a 61 year old female with [...] the care of Dr. Schilling of [facility]. Shehas had multiple procedures performed which are detailed below. The patientrelates beingon Lasix in the past for her lower extremity edema. Apparentlythe doses were gradually increased due to lack of response. Eventually thepatient developed significant renal insufficiency and the Lasixhad to bedecreased or stopped. The patient states that she had terrible cramping withthe doses of Lasix. She states she was unable to continue taking it. She isnow not currently on any diuretic therapy. She believes the swelling hasworsened in her lower extremities all the way up her legs and into h er abdomen. She has gained approximately 11 pounds since February of this year. She does statethat she was taking lqdk-slb-scppxbn diet pills until recently. They were notworking. The patient has chronic complaints of dyspnea and dyspnea onexertion. She has been treated with lisinopril for her blood pressure. TheLasix was used to try to decrease her edema but was not successful. Thepatient and her sonseem frustrated with the care they were given by theprevious cardiology team. By my review of the testing it seems the previouscardiologist was going by the guidelines with continued reasonable testing inan effort to try to help the patient's situation. She and her son seems veryupset with the lackof progress.07/21/2017The patient presents today for a 2-3 week visit. I have reviewed her previoustesting and it is documented below. The results from a sleep study in May2017 shows mild obstructive sleep apnea. It was recommended that she betitrated on CPAP. The patient states that her home equipment is to bedelivered. She continues to have swelling. She continues to have dyspnea onexertion.It has not worsened since her previous visit. [...] some swellingin her knees and thighs bilaterally. Shehas been unable to tolerate diureticsin the past. She has had multiple invasive evaluations. Her son states thatarleth truly is not active at home at all. She may sit in her chair for [id number] hoursevery day. She states that it's because of [...] or near syncopalepisodes. It is a vague sensation.JAVED DE LOS SANTOS MEDICAL HISTORYDiagnosis Date- Anxiety- ASD (atrial septal defect)- Asthma- CAD (coronary arterydisease)- CHF (congestive heart failure) ([facility])- DM (diabetes mellitus) ([facility])- Fibromyalgia- GERD (gastroesophageal reflux disease)- HTN (hypertension)- [...] OF - TONSILLECTOMY HXSocial HistorySubstance Use Topics- Smoki ng status: Passive Smoke Exposure - Never Smoker Types: Cigarettes- Smokeless tobacco: Never Used- Alcohol use NoFAMILY HISTORYProblem Relation Age of Onset- Adopted: Yes- Family history unknown: YesALLERGIES:ALLERGIESAllergen Reactions- Latex Rash- Penicillin Rash- Sulfa (Sulfonamide * RashMEDICATIONS:pantoprazole (PROTONIX) 40 mg injection Inject intravenously DAILY [...] Take by mouth daily at bedtime.celecoxib (CELEBREX) 200mg capsule Take by mouth twice daily.REVIEW OF SYSTEMS:A complete review of systems was obtained and is remarkable for that notedabove. The remaining systems are unremarkable.I personally interviewed, confirmed and edited the above information ifobtained by others.PHYSICAL EXAMINATION:BP 165/72 Pulse (!) 57 Resp 18 Ht 160 cm (5' 3ANDquot;) Wt 117.9 kg (260lb) SpO2 100% BMI 46.06 kg/t1Rmogntx: Well appearing, in no acute distress.Eyes: Conjunctiva normal, sclera normalNeck: No jugular venous distention, no palpable thyromegaly.Heart: Regular rhythm, S1, S2 normal, no S3, no S4. No murmur. No carotidbruits.Respiratory: Mildly decreased breath sounds bilaterally. Good respiratoryeffort.GI: Soft, nontender, bowel sounds normal, no palpable hepatosplenomegalyExtremities: Normal pulses in distal lower extremities. Moderate 2+ bilaterallower extremity edema, left greater than right. There is skin discoloration inthe right lower extremityNeuro: Alert, cooperative with no focal deficit.Psych: Pleasant and cooperative.Skin: No rashes or wounds.CARDIOVASCULAR MEDICINE TESTING:Echocardiograms:11/28/2014 - a 2-D echocardiogram performed at the [facility] normal left ventricular systolic function with an ejection fraction of60%. There was no significant valvular disease identified. There was nocomment on diastolic function.02/24/2017 - a 2-D echocardiogram performed at the [facility] low normal to mildly reduced left ventricular systolic function withan ejection fraction of 45-50%. There was minimal concentric left ventricularhypertrophy present. There was evidence of grade 1 diastolic dysfunction.There was mild mitral regurgitation. No estimate a right ventricular systolicpressure was possible on this study.Stress Evaluations:02/26/2016 - [facility] ejection fraction of 50% with abnormal septal wallmotion. There was a small defect involving the inferior oh apical wall whichwas fixed. This was felt to likely represent artifact. There was no otherevidence of Lexiscan stress-induced ischemia.02/24/2017 - [facility] systolic function with an ejectionfraction of 48%. There was a moderate sized anterior septal defect which waspartially reversible noted. This was read as suggestive of possiblestress-induced ischemia.Cardiac Catheterizations:07/16/2004 -[facility]. There was moderately decreased leftventricular systolic function noted with an ejection fraction of 30%.Moderately elevated right heart pressures and a normal cardiac index werenoted. The patient was continued on Demadex, Diovan, around oh lactone, Coreg3.125 mg twice a day.06/12/2005 - a right and left heart catheterization was performed at [facility] revealing nonobstructivecoronary artery disease,left ventricular ejection fraction of 50%, moderate pulmonary hypertension,severely elevated left ventricular end-diastolic pressure, normal cardiacoutput and normal cardiac in dex. The patient was started on Lasix 40 mg twicea day.02/14/2008 - a right and left heart catheterization was performed at [facility] revealing mild 3 vessel coronary arterydisease, mildly reduced left ventricular systolic function (no ejectionfraction noted on the report), mild mitral regurgitation, mildly elevated leftventricular end-diastolic pressure, mild pulmonary hypertension and a normalcardiac index. No changes were made to the medical regimen.02/28/2013 - a right and left heart catheterization performed at [facility] reveals mild 3 vessel coronary artery disease, mild pulmonaryhypertension, preserved cardiac index and no evidence of cardiac shunt. Thisstudy was performed due to an abnormal stress test and a suspected patentforamen ovale versus ASD on echocardiogram. Medical therapy was recommendedbut not detailed in the report.03/05/2017 - a right and left heart catheterization was performed at [facility] revealing nonobstruct junior coronary artery disease, mildlyreduced left ventricular systolic function by noninvasive imaging, moderatelyelevated right-sided heart pressures and mildly elevated pulmonary capillarywedge pressure, low normal cardiac output, low normal cardiac index andmoderate to severe systemic hypertension. Lasix 20 mg daily was re-added. Thepatient was continued on an angiotensin-converting enzyme inhibitor and a betablocker was recommended.Electrocardiograms:05/16/2017 - a 12-lead electrocardiogram reveals normal sinus rhythm at 58 bpm. There is a left bundle branch block present.06/30/2017 - a 12-lead electrocardiogram reveals sinus bradycardia at 53 bpm.There is a left bundle branch block presen t.IMPRESSION:1. 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 Patient is very inactive at home.2. Edema, unspecified type - ICD9: 782.3, ICD10: R60.9, likely multi- factorialsimilar to problem #1. Persistent some degree. Slightly better withoutCelebrex. Patient inactive for large amounts of time.3.Chronic combined systolic and diastolic congestive heart failure (HCC) -ICD9: 428.42, 428.0, ICD10:I50.42, most recent echocardiogram with improvedsystolic function and [...] multiplecardiac catheterizations in the past.6. JEREMY (obstructive sleepapnea) - ICD9: 327.23, ICD10: G47.33, not currentlytreated as the patient is intolerant of her mask.7. Gastroesophageal reflux disease, esophagitis presence not specified - ICD9:530.81, ICD10: K21.9,care per primary care team.8. Fibromyalgia - ICD9: 729.1, ICD10: M79.79. Restrictive lung disease -ICD9: 518.89, ICD10: J98.4, care per pulmonology.10. Obesity, Class III, BMI 40-49.9 (morbid obesity) (HCC) - ICD9: 278.01,ICD10: E66.0111. Preoperative cardiovascular evaluation prior to planned right kneereplacement. The patient's risk for the surgery as moderate. I would placeher risk in the 5-10% range. No further workup is necessary prior to thatprocedure.12. Nonobstructive coronary artery disease by multiple cardiaccatheterizations.PLAN:Continue current medical therapy.We have had a very long discussion regarding significant changes in thepatient's diet in an effort to help her lose weight. Weight loss maydefinitely help her symptoms. I have suggested the Nostalgia Bingo diet. I havealso discussed with her a pre- diabetic diet.Regular aerobic activity as able. We have discussed that thismay be somesimple arm exercises while she is seated.Considered a referral to Dr. Guevara for evaluation of possible lowerextremity venous insufficiency or even lymphedema.Discussed a weight loss of 5-10 pounds over the next 3 months.Patient will follow-up with me in 3 months or sooner if necessary.A copy of this note will be provided to the requesting physician by way [facility] or t o the requesting physician via U.S. Mail.This document was generated utilizing ExtraFootie dictation. I have reviewed andverified that the contents of the document are accurate with the exception ofminor grammatical, spelling and punctuation errors.CONTACT INFORMATION:Thank you for allowing us to participate in the care of this very pleasantpatient. Please free to contact us if we can be of any further assistance.Italo Ann MD, [facility] and Mechelle Sage of Cardiovascular MedicineHeart and Vascular InstituteMercy Health Urbana Hospital[address], [place] [address]Xauhgt: [phone] Referring Provider: PETER SOSA [[id number]]Allergies As of Date: 01/04/2018 Noted Allergy ReactionLATEX 06/30/2017 2 - RashPENICILLIN 06/30/2017 2 - RashSULFA (SULFONAMIDE ANTIBIOTICS) 06/30/2017 2 - RashDate Reviewed: 01/04/2018Reviewed by: Italo Ann - Fully AssessedReason for Visit: Follow Up [171]Primary Visit Diagnosis:Chronic combinedsystolic and diastolic congestive heart failure (HCC) [I50.42] Other Visit Diagnoses:Pulmonary HTN [I27.20] Essential hypertension [I10] Obesity, Class III, BMI >= 40 (morbid obesity) E66.01 [E66.01] JEREMY (obstructive sleep apnea) [G47.33] Gastroesophageal reflux disease, esophagitis presence not specified [K21.9] Fibromyalgia [M79.7] Restrictive lung disease [J98.4]Prescriptions as of 01/04/2018 Sig: PANTOPRAZOLE 80 MG BOLUS Inject intravenously DAILY (6* HYDROXYZINE HCL 10 MG TABLET Take bymouth three times da* TEMAZEPAM 15 MG CAPSULE [...] (6 AM). Disc: Erroneous entry POTASSIUM CHLORIDE (KLOR- CON M20 ORA* 01/04/2018 Class: Historical Med Route: ORAL Sig: Take by mouth. Disc: Erroneous entryEncounter Number: [id number] Status:Closed by LUC ANN MD on 01/04/18[facility] [id number] mass concHNO ID: [id number]: Italo FultonyService: (none)Author Type: PhysicianType: Progress NotesFiled: 01/04/2018 12:56 PMNote Text:Heart and Vascular InstituteRobert and Mechelle Dodd Depart ment of Cardiovascular MedicineOUTPATIENT VISIT DATE 01/04/18OUTPATIENT VISIT TYPEESTABLISHEDPRIMARY CARE PHYSICIAN:Peter Sosa DO[address] [place] [address]Aisby: [phone]: [phone] COMPLAINT:Patient presents with:Follow UpHISTORY OF PRESENT ILLNESS:Renuka Padron is a 61 year old female with [...] and under the care of Dr. Schilling [facility]. She has had multiple procedures performed which are detailed below. The patient relates being on Lasix in the past for her lower extremityedema. Apparently the doses were gradually increased due to lack ofresponse. Eventually the patient developed significant renalinsufficiency and the Lasix had to be decreased or stopped. The patientstates that she had terrible crampingwith the doses of Lasix. She statesshe was unable to continue taking it. She is now not currently on anydiuretic therapy. She believes the swelling has worsened in her lowerextremities all the way upher legs and into her abdomen. She has gainedapproximately 11 pounds since February of this year. She does state that shewas taking rfga-qal-elqbdkb diet pills until recently. They were notworking. The patient has chronic complaints of dyspnea and dyspnea onexertion. She has been treated with lisinoprilfor her blood pressure.The Lasix was used to try to decrease her edema but was not successful.The patient and her son seem frustrated with the care they were given bythe previous cardiology team. 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 I have revi ewed herprevious testing and it is documented below. [...] needs to get up and move some. Shealso needs to make changes in her diet. [...] 05/2009 EF 30% LVH- EGD 02/2013- FOOT SURGERYHX- GASTRIC BYPASS HX- PAST SURGICAL HISTORY OF - TONSILLECTOMY HXSocial HistorySubstance Use Topics- Smoking status: Passive Smoke Exposure - Never Smoker Types: Cigarettes- Smokeless tobacco: Never Used- Alcohol use NoFAMILY HISTORYProblem Relation Age of Onset- Adopted: Yes- Family history unknown: YesALLERGIES:ALLERGIESAllergen Reactions- Latex Rash- Penicillin Rash- Sulfa (Sulfonamide * RashMEDICATIONS:pantoprazole (PROTONIX) 40 mg injection Inject intravenously DAILY (6 AM).hydrOXYzine HCl (ATARAX) 10 mg tablet Take by mouth three times daily asneeded.temazepam (RESTORIL) 15 mgcap Take by mouth at bedtime as needed.rOPINIRole (REQUIP) 0.5 mg tablet Take 0.5 mg by mouth dailyat bedtime.CALCIUM POLYCARBOPHIL (FIBERCON ORAL) Take by mouth.lisinopril (ZESTRIL, PRINIVIL) 20 mgtablet Take by mouth once daily.tiZANidine HCl 4 mg capsule Take by mouth daily at bedtime.celecoxib (CELEBREX) 200 mg capsule Take by mouth twice daily.REVIEW OF SYSTEMS:A complete review of systemswas obtained and is remarkable for that notedabove. The remaining systems are unremarkable.I luis f miller interviewed, confirmed and edited the above information ifobtained by others.PHYSICAL EXAMINATION:BP 165/72 Pulse (!) 57 Resp 18 Ht 160 cm (5' 3 ) Wt 117.9 kg (260lb) SpO2 100% BMI 46.06 kg/h2Kvuovun: Well appearing, in no acute distress.Eyes: Conjunctiva normal, sclera normalNeck: No jugular venous distention, no palpable thyromegaly.Heart: Regular rhythm, S1, S2 normal, no S3, no S4. No murmur. No carotidbruits.Respiratory: Mildly decreased breath sounds bilaterally. Good respiratoryeffort.GI: Soft, nontender, bowel sounds normal, no palpable hepatosplenomegalyExtremities: Normal pulses in distal lower extremities. Moderate 2+bilateral lower extremity edema, left greater than right. There is skindiscoloration in the right lower extremityNeuro: Alert, cooperative with no focal deficit.Psych: Pleasant and cooperative.Skin: No rashes or wounds.CARDIOVASCULAR MEDICINE TESTING:Echocardiograms:11/28/2014 - [facility] with an ejectionfraction of 60%. There was no significant valvular disease identified.There was no comment on diastolic function.02/24/2017 - a 2-D echocardiogram performed at the [facility] low normal to mildly reduced left ventricular systolic functionwith an ejection fraction of 45-50%. There was minimal concentric leftventricular hypertrophy present. There was evidence of grade 1 diastolicdysfunction. There was mild mitral regurgitation. No estimate a rightventricular systolic pressure was possible on this study.Stress Evaluations:02/26/2016 - a Lexiscan nuclear stress evaluation at the [facility] revealed a left ventricular ejection fraction of 50% with abnormalseptal wall motion. There was a small defect involving the inferior ohapical wall which was fixed. This was felt to likely represent artifact.There was no other evidence of Lexiscan stress-induced ischemia.02/24/2017 - a Lexiscan nuclear stress evaluation at the [facility] revealed mildly diminished left ventricular systolic function withan ejection fraction of 48%. There was a moderate sized anterior septaldefect which was partially reversible noted. This was read as suggestiveof possible stress-induced ischemia.Cardiac Catheterizations:07/16/2004 - a cardiac catheterization performed at the [facility] revealed normal coronaryarteries. There was moderately decreasedleft ventricular systolic function noted with an ejection fraction of 30%. Moderately elevated right heart pressures and a normal cardiac index werenoted. The patient was continued on Demadex, Diovan, around oh lactone,Coreg 3.125 mg twice a day.06/12/2005 - a right and left heart catheterization was performed at [facility] revealing nonobstructive coronary arterydisease, left ventricular ejection fraction of 50%, moderate pulmonaryhypertension, severely elevated left ventricular end-diastolic pressure,normal cardiac output and normalcardiac index. The patient was startedon Lasix 40 mg twice a day.02/14/2008 - a right and left heart catheterization was performed at [facility] revealing mild 3 vessel coronaryartery disease, mildly reduced left ventricular systolic function (noejection fraction noted on the report), mild mitral regurgitation, mildlyelevated left ventricular end-diastolic pressure, mild pulmonaryhypertension and a normal cardiac index. No [facility] made [facility].02/28/2013 - a right and left heart catheterization performed at [facility] reveals mild 3 vessel coronary artery disease, mildpulmonary hypertension, preserved cardiac index and no evidence of car diacshunt. This study was performed due to an abnormal stress test and asuspected patent foramen ovale versus ASD on echocardiogram. Medicaltherapy was recommended but not detailed in the report.03/05/2017 - a right and left heart catheterization was performed at [facility] revealing no nobstructive coronary artery disease,mildly reduced left ventricular systolic function by noninvasive imaging,moderately elevated right-sided heart pressures and mildly elevatedpulmonary capillary wedge pressure, low normal cardiac output, low normalcardiac index and moderate to severe systemic hypertension. Lasix 20 mgdaily was re-added. The patient was continued on anangiotensin- converting enzyme inhibitor and a beta lianna wasrecommended.Electrocardiograms:05/16/2017 - a 12-lead electrocardiogram reveals normal sinus rhythm at 58bpm. There is a left bundle branch block present.06/30/2017 - a 12-lead electrocardiogram reveals sinus bradycardia at 53bpm. There is a left bundle branch block present.IMPRESSION:1. Dyspnea on exertion - ICD9: 786.09, ICD10: R06.09 (primary diagnosis),likelymulti- factorial, worsened by underlying pulmonary disease,obstructive sleep apnea not treated, history of both systolic anddiastolic heart failure, intolerant of diuretic therapy, gastroesophagealreflux disease and obesity. 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 Patient is very inactive at home.2. Edema, unspecified type - ICD9: 782.3, ICD10: R60.9, likelymulti-factorial similar to problem#1. Persistent some degree. Slightlybetter without Celebrex. Patient inactive for large amounts of time.3. Chronic combined systolic and diastolic congestive heart failure (HCC)- ICD9: 428.42, 428.0,ICD10: I50.42, most recent echocardiogram withimproved systolic function [...] I10, blood pressuremoderately elevated today.5. Pulmonary HTN ([facility]) - ICD9: 416.8, ICD10: I27.2, diagnosed by multiplecardiac catheterizations in the past.6. JEREMY (obstructive sleep apnea) - ICD9: 327.23, ICD10: G47.33, notcurrently treated as the patient is intolerant of her mask.7. Gastroesophageal reflux disease, esophagitis presence not specified -ICD9: 530.81, ICD10:K21.9, care per primary care team.8. Fibromyalgia - [...] procedure.12. Nonobstructive coronary artery disease by multiple cardiaccatheterizations.PLAN:Continue current medical therapy.We have had eulalio long discussion regarding significant changes in thepatient's diet in an effort to help her lose weight. Weight loss maydefinitely help her symptoms. I have suggested the Nostalgia Bingo diet. Gavin discussed with her a pre-diabetic diet.Regular aerobic activity as able. We have discussed that this may be somesimple arm exercises while she is seated.Considered a referral to Dr. Guevara forevaluation of possible lowerextremity venous insufficiency or even lymphedema.Discussed a weight loss of 5-10 pounds over the next 3 months.Patient will follow-up with me in 3 months or sooner if necessary.A copy of this note will be provided to the requesting physician by [facility] or to the requesting physician via U.S. Mail.This document was generated utilizing [employer]. I have reviewedand verified that the contents of the document are accurate with theexception of minor grammatical, spelling and punctuation errors.CONTACT INFORMATION:Thank you for allowing us to participate in the care of this very pleasantpatient. Please free to contact us if we can be of any f urtherassistance.Italo Ann MD, FACCRobert and Mechelle DoddDepartment of CardiovascularMedicineHeart and Vascular Institute[address] [address]Ctwnzm: [phone] NormalCCleveland Clinic-Reactive Proteinon 12-21-2017 CRP mass conc1.1 mg/dLHigh<1.0[facility] HospitalComment on above: Performed By: #### 1988-5 ####OHRIVERGIDEON[address]CB with Differentialon [id number] Auto #/vol (Bld)0.10 thou/mcLNormal 0.00-0.20[facility] HospitalComment on above:Performed By: #### 69871-3 ####[address]#### 385[address]-7 ####[facility] HOSPITALGIDEONJACK [facility], [address] [place] [address].Basophils/100 WBC Auto (Bld)0.9 %Normal 0.0-2.0[facility] Health SystemComment on above:Performed By: #### 45811-4 ####[address]#### 94047-3 ####[facility], [address] [place] [address].Eosinophils Auto #/vol (Bld)0.20 thou/mcL Normal0.00-0.70[facility] SystemComment on above:Performed By: #### 84947-9 ####[address]#### 89994-1 ####[facility], [address] [place] [address].Eosinophils/100 WBC Auto (Bld)3.1 %Normal0.0-7.0[facility] SystemComment on above:Performed By: ###Sidney 34040-4 ####[address]#### 24099-6 ####[facility], [address] [place] [address].Erythrocyte distribution width Entitic volume (RBC)16.3 %High11.0-14.8[facility] SystemComment on above:Performed By: #### 94312-3 ####[address]#### 49747-8 ####[facility], [address] [place] [address]. Hematocrit Auto Volume Fraction (Bld)37.5 %Wnkqxz85.0-45.0[facility] SystemComment on above:Performed By: #### 36294-7 ####[address]#### 60187-7 ####[facility], [address] [place] [address].Hemoglobin mass conc (Bld)12.2 g/rRCevnnz75.0-16.0[facility] SystemComment on above:Performed By: #### 27193-8 ####[address]#### 77452-5 ####[facility], [address] [place] [address].Lymphocytes Auto #/vol (Bld)1.40 thou/mcLNormal1.00-4.80[facility] HospitalComment on above:Performed By: #### 13183-0 ####[address]#### 99885-6 ####[facility], [address] [place] [address].Lymphocytes/100 WBC Auto (Bld)19.5 %Low22.0-44.0[facility] HospitalComment on above:Performed By: #### 77540-1 ####[address]#### 35088-9 ####[facility], [address] [place] [address].MCH Auto Entitic mass (RBC)25.2 ElbtinynoDdr16.0-34.0 [facility] SystemComment on above:Performed By: #### 87845-5 ####[address]#### 94581-0 ####[facility], [address] [place] [address].MCHC Auto mass conc (RBC)32.6 g/dLNormal 32.0-36.0[facility] SystemComment on above:Performed By: #### 85140-6 ####[address]#### 85751-7 ####[facility], [address] [place] [address].MCV Auto Entitic volume (RBC)77.2 fLLow 80.0-97.0[facility] SystemComment on above:Performed By: #### 90572-8 ####[address]#### 83923-8 ####[facility], [address] [place] [address].Monocytes Auto #/vol (Bld)0.50 thou/mcLNormal 0.00-0.90[facility] SystemComment on above:Performed By: #### 69347-5 ####[address]#### 06452-7 ####[facility], [address] [place] [address].Monocytes/100 WBC Auto (Bld)6.7 %Normal 0.0-12.0[facility] SystemComment on above:Performed By: #### 47574-8 ####[address]#### 12204-6 ####[facility], [address] [place] [address].Neutrophils Auto #/vol (Bld)5.00 thou/mcL Normal1.80-7.70[facility] SystemComment on above:Performed By: #### 08899-5 ####[address]#### 63292-6 ####[facility], [address] [place] [address].Neutrophils/100 WBC Auto (Bld)69.8 %Hzxtcw52.0-70.0[facility] SystemComment on above:Performed By: #### 44767-2 ####[address]#### 99045-5 ####[facility], [address] [place] [address].Platelet mean volume Entitic volume (Bld)8.4 FLNormal6.2-12.1[facility] SystemComment on above:Performed By: #### 46786-1 ####[address]#### 65439-5 ####[facility], [address] [place] [address]. Platelets Auto #/vol (Bld)278 thou/tuYZrbxqd314-783[facility] Comment on above:Performed By: #### 54723-2 ####[address]#### 45141-3 ####[facility], [address] [place] [address]. RBC Auto #/vol (Bld)4.86 million/mcLNormal3.80-5.10[facility] Comment on above:Performed By: #### 97354-7 ####[address]#### 81465-8 ####[facility], [address] [place] [address]. WBC Auto #/vol (Bld)7.2 thou/mcLNormal4.6-10.2[facility] HospitalComment on above:Performed By: #### 70833-7 ####[address]#### 59283-4 ####[facility], [address] [place] [address]. Sedimentation Rate rbcon 76-10-7950RUB Velocity (Bld)32 mm/hHigh0-20[facility] HospitalComment on above:Performed By: #### 97752-5 ####[address]#### 22508-1 ####[facility], [address] [place] [address].XR Knee 4+ Views RTon [id number] Knee - right 4 viewsEXAMINATION TYPE: XR Knee 4+ Views RT DATE OF EXAM : 12/21/2017 11:15 AMHISTORY: pain in the knee,COMPARISON: NONEFINDINGS: Standing AP, PA, lateral and sunrise patella view submitted of the RIGHT knee. AP imaging demonstrates postoperative changes bilaterally the knees status post total knee replacement. The RIGHT knee prostheses appear properly seated chilkat bone without fracture. Relationship wit hin normal limits. No convincing plain from evidence of an effusion. Bone density appears mildly diminished but without acute or dominant focal abnormality.Limited imaging of the LEFT knee is notableonly for postoperative changes without opposed acute finding.IMPRESSION: No acute findings.[facility] thanks you for the opportunity to care for your patient. Workstation ID: [id number] - [id number] FINAL REPORT Dictated By: Peter Crain MD 12/21/2017 13:24Assigned Physician: Peter Crain MD and Electronically Signed By: Peter Crain MD 12/21/2017 13:26Transcribed by: BARRON 12/21/2017 13:24Technologist: JustusAden[facility] SystemCNSaint [facility] [phone] Visit (CARDERIC) --------RENUKA PADRON ([id number]) 1955 [facility] Time Provider Atcdppyufy02/3/17 1:00 PM ITALO ANN During your visit today, we recorded the following information about you: Pulse Respiration Blood pressure Weight 86/minute 18/minute 146/57 127 kg Height 1.6 Cece Ann MD 07/21/2017 1:57 PM SignedSelect Medical [facility], Beachwoodrt and Vascular InstituteRobzuni hospital and Mechelle Dodd Department of Cardiovascular MedicineOUTPATIENT VISIT DATE 07/21/17OUTPATIENT VISIT TYPEESTABLISHEDPRIMARY CARE PHYSICIAN:[place] [address]Ihidu: [phone]: [phone] COMPLAINT:Patient presents with:Leg EdemaShortness of BreathHISTORY OF PRESENT ILLNESS:Renuka Mackcolumba is a 61 year old female with [...] the care of Dr. Schilling of [facility]. Danika had multiple procedures performed which [...] taking it. She isnow not currently on anydiuretic therapy. She believes the swelling hasworsened in her lower extremities all the way up herlegs and into her abdomen. She has gained approximately 11 pounds since February of this year. She does statethat she was taking ulrq-kas-ozniwpk diet pills until recently. They were notworking. The patient has chronic complaints of dyspnea and dyspnea onexertion. She has been treated with lisinopril for her blood pressure. TheLasix was used to try to decrease her edema but was not successful. Thepatient and her son seem frustrated with the care they were given by theprevious cardiology team. By my r eview of the testing it seems the previouscardiologist [...] time and thiscould certainly cause fluid overload. Itis not clear what the exact etiologyof her continued symptoms are. It is most likely that his multi- factorial.The patient is also facing a right knee replacement in the near future. Shedoes not have significant coronary artery disease.PAST MEDICAL HISTORYDiagnosis Date- Anxiety- ASD (atrial septal defect)- Asthma- CAD (coronary artery disease)- CHF (congestive heart failure) ([facility])- DM (diabetes me llitus) ([facility])- Fibromyalgia- GERD (gastroesophageal reflux disease)- HTN (hypertension)- OA (osteoarthritis) of knee- JEREMY (obstructive sleep apnea)- Pulmonary HTN- Restrictive lung disease- Vitamin DdeficiencyPAST SURGICAL HISTORYProcedure Laterality Date- APPENDECTOMY HX- CARDIAC [...] of Onset- Adopted: Yes- Family history unknown: YesALLERGIES:ALLERGIESAllergen Reactions- Latex Rash- Penicillin Rash- Sulfa (Sulfonamide * RashMEDICATIONS:esomeprazole (NEXIUM) 40 mg capsule Take by mouth [...] at bedtime.CALCIUM POLYCARBOPHIL (FIBERCON ORAL) Take by mouth.lisinopril(ZESTRIL, PRINIVIL) 20 mg tablet Take by mouth once daily.tiZANidine HCl 4 mg capsule Take by mouthdaily at bedtime.REVIEW OF SYSTEMS:A complete review of systems was obtained and is remarkable for that notedabove. The remaining systems are unremarkable.I personally interviewed, confirmed and edited the above information ifobtained by others.PHYSICAL EXAMINATION:BP 146/57 Pulse 86 Resp 18 Ht 160 cm (5' 3ANDquot;) Wt 127 kg (280 lb) SpO2 96% BMI 49.6 kg/l7Qmlhrny: Well appearing, in no acute distress.Eyes: Conjunctiva normal, sclera normalNeck: No jugular venous distention, no palpable thyromegaly.Heart: Regular rhythm, S1, S2 normal, no S3, no S4. No murmur. No carotidbruits.Respiratory: Mildly decreased breath sounds bilaterally. Good respiratoryeffort.GI: Soft, nontender, bowel sounds normal, no palpable hepatosplenomegalyExtremities: Normal pulses in distal lower extremiti es. Moderate 2+ bilaterallower extremity edema, left greater than right. There is skin discoloration inthe right lower extremityNeuro: Alert, cooperative with no focal deficit.Psych: Pleasant and cooperative.Skin: No rashes or wounds.CARDIOVASCULAR MEDICINE TESTING:Echocardiograms:11/28/2014 - a 2-D echocardiogram performed at the [facility] normal left ventricular systolic function with an ejection fraction of60%. There was no significant valvular disease identified. There was nocomment on diastolic function.02/24/2017 - a 2-D echocardiogram performed at the [facility] low normal to mildly reduced left ventricular systolic function withan ejection fraction of 45-50%. There was minimal concentric left ventricularhypertrophy present. There was evidence of grade 1 diastolic dysfunction.There was mild mitral regurgitation. No estimate a right ventricular systolicpressure was possible on this study.Stress Evaluations:02/26/2016 - a Lexiscan nuclear stress evaluation at the [facility] a left ventricular ejection fraction of 50% with abnormal septal wallmotion. There was a small defect involving the inferior oh apical wall whichwas fixed. This was felt to likely represent artifact. There was no otherevidence of Lexiscan stress-induced ischemia.02/24/2017 - a Lexiscan nuclear stress evaluation at the [facility] mildly diminished left ventricular systolic function with an ejectionfraction of 48%. There was a moderate sized anterior septal defect which waspartially reversible noted. This was read as suggestive o f possiblestress-induced ischemia.Cardiac Catheterizations:07/16/2004 - [facility]. There was moderately decreased leftventricular systolic function noted with an ejection fraction of 30%.Moderately elevated right heart pressures and a normal cardiac index werenoted. The patient was continued on Demadex, Diovan, around oh lactone, Coreg3.125 mg twice a day.06/12/2005 - a right and left heart catheterizationwas performed at [facility] revealing nonobstructive coronary artery disease,left ventricular ejection fraction of 50%, moderate pulmonary hypertension,severely elevated left ventri cular end-diastolic pressure, normal cardiacoutput and normal cardiac index. The patient was started on Lasix 40 mg twicea day.02/14/2008 - a right and left heart catheterization was performed at [facility] revealing mild 3 vessel coronary arterydisease, mildly reduced left ventricular systolic function (no ejectionfraction noted on the report), mild mitral regurgitation, mildly elevated leftventricular end-diastolic pressure, mild pulmonary hypertension and a normalcardiac index. No changes were made to the medical regimen.02/28/2013 - a right and left heart catheterization performed at [facility] reveals mild 3 vessel coronary artery disease, mild pulmon aryhypertension, preserved cardiac index and no evidence of cardiac shunt. Thisstudy was performed due to an abnormal stress test and a suspected patentforamen ovale versus ASD on echocardiogram. Medical therapy was recommendedbut not detailed in the report.03/05/2017 - a right and left heart catheterization was performed at [facility] revealing nonobstructive coronary artery disease, mildlyreduced left ventricular systolic function by noninvasive imaging, moderatelyelevated right-sided heart pressures and mildly elevated pulmonary capillarywedge pressure, low normal cardiac outpu t, low normal cardiac index andmoderate to severe systemic hypertension. Lasix 20 mg daily was re-added. 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 Edema, unspecified type - ICD9: 782.3, ICD10: R60.9, likely multi-factorialsimilar to problem #1. Left lower extremity more involved than right lowerextremity.3.Chronic combined systolic and diastolic congestive heart failure (HCC) -ICD9: 428.42, 428.0, ICD10:I50.42, most recent echocardiogram with improvedsystolic function and grade 1 diastolic dysfunction. Currently only onlisinopril due to the patient not tolerating diuretic therapy. The patientstates today that her previous physicians took her off of carvedilol. This wasdue to low blood pressures.4. Essential hypertension - ICD9: 401.9, ICD10: I10, blood pressure uppernormal today.5. Pulmonary HTN(HCC) - ICD9: 416.8, ICD10: I27.2, diagnosed by multiplecardiac catheterizations in the past.6. JEREMY(obstructive sleep apnea) - ICD9: 327.23, ICD10: G47.33, not currentlytreated as the patient is intolerant of her mask. She is apparently scheduledfor a sleep study soon.7. Gastroesophageal reflux disease, esophagitis presence not specified - ICD9:530.81, ICD10: K21.9, care per primary care team.8.Fibromyalgia - ICD9: 729.1, ICD10: M79.79. Restrictive lung disease - ICD9: 518.89, ICD10: J98.4, ca re per pulmonology.10. Obesity, Class III, BMI 40-49.9 (morbid obesity) (HCC) - ICD9: 278.01,ICD10:E66.0111. Preoperative cardiovascular evaluation prior to planned right kneereplacement. The patient's risk for the surgery as moderate. I would placeher risk in the 5-10% range. No further workup isnecessary prior to thatprocedure.12. Nonobstructive coronary artery disease by multiple cardiaccatheterizations.PLAN:Discontinue Celebrex for one month..Patient will be starting CPAP at home in the near future.Monitor her lower extremity swelling, if this improves then Celebrex may beplaying a rolein her edema.Low-sodium diet.Monitor blood pressure at home.Continuous effort at weight loss.The patient will return to the office in one month to discuss any change in heredema after stopping Celebrex. Hopefully she will have started her CPAP at thesame time.A copy of this note will be provided tothe requesting physician by way ofshared medical record or to the requesting physician via U.S. Mail.This document was generated utilizing [employer]. I have reviewed andverified that the contents of the document are accurate with the exception ofminor grammatical, spelling and punctuation errors.CONTACT INFORMATION:Thank you for allowing us to participate in the care of this very pleasantpatient. Please free to contact us if we can be of any further assistance.Italo Ann MD, [facility] and Mechelle DoddCtpartment of Cardiovascular MedicineClearsky Rehabilitation [facility] and [facility] Institute[address] [address]Epriyp: [phone] Referring Provider: PETER SOSA [[id number]]Allergies As of Date: 07/21/2017 Noted Allergy ReactionLATEX 06/30/2017 2 - RashPENICILLIN 06/30/2017 2 - RashSULFA (SULFONAMIDE ANTIBIOTICS) 06/30/2017 2 - RashDate Reviewed: 07/21/2017Reviewed by: Italo Ann - Fully AssessedReason for Visit: Leg Edema [769] Shortness of Breath [227]Primary Visit Diagnosis:Chronic combined systolic and diastolic congestive heart failure (HCC) [I50.42] Other Visit Diagnoses:Pulmonary HTN [I27.20] Essent ial hypertension [I10] JEREMY (obstructive sleep apnea) [G47.33]Prescriptions [...] 0.5 MG TABLET Take 0.5 mg by mouthdaily at* FIBERCON ORAL Take by mouth. LISINOPRIL 20 MG TABLET Take by mouth once daily. TIZANIDINE4 MG CAPSULE Take by mouth daily at [...] FOR* Status:Closed by LUC ANN MD on 07/21/17[facility] SystemPROGRESSon [id number] mass concHNO ID: [id number]: Italo FultonyService: (none)Author Type: PhysicianType: Progress NotesFiled: 07/21/2017 1:57 PMNote Text:Heart and Vascular [facility] Department of Cardiovascular MedicineOUTPATIENT VISIT DATE 07/21/17OUTPATIENT VISIT TYPEESTABLISHEDPRATRIUM HEALTH WAKE FOR[facility] BAPT[facility] DAVIE MEDICAL CENTERRY CARE PHYSICIAN:[place] [address]Zlyxz: [phone]: [phone] COMPLAINT:Patient presents with:Leg EdemaShortness of BreathHISTORY OF PRESENT ILLNESS:Renuka Padron is a 61 year old female with [...] and under the care of Dr. Schilling [facility]. She has had multiple procedures performed which are detailed below. The patient relates being on Lasix in the past for her lower extremityedema. Apparentlythe doses were gradually increased due to lack ofresponse. Eventually the patient developed significant renalinsufficiency and the Lasix had to be decreased or stopped. The patientstates that she hadterrible cramping with the doses of Lasix. She statesshe was unable to continue taking it. She is now not currently on anydiuretic therapy. She believes the swelling has worsened in her lowerextremities all the way up her legs and into her abdomen. She has gainedapproximately 11 pounds since Februarys year. She does state that shewas taking bcjj-anx-besqecp diet pills until recently. They were notworking. 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 I have reviewed herprevious testing and it is documented below. The results from a sleepstudy in May 2017 shows mild obstructive sleep apnea. It wasrecommended that she be titrated on CPAP.The patient states that herhome equipment is to [...] significant coronary artery disease.PAST MEDICAL HISTORYDiagnosis Date- Anxiety-ASD (atrial septal defect)- Asthma- CAD (coronary artery disease)- CHF (congestive heart failure) ([facility])- DM (diabetes mellitus) ([facility])- Fibromyalgia- GERD (gastroesophageal reflux disease)- HTN (hypertension)- [...] of Onset- Adopted: Yes- Family history unknown: YesALLERGIES:ALLERGIESAllergen Reactions- Latex Rash- Penicillin Rash- Sulfa (Sulfonamide * RashMEDICATIONS:esomeprazole (NEXIUM) 40 mg capsule Take by mouth [...] mouth daily at bedtime.CALCIUM POLYCARBOPHIL (FIBERCON ORAL) Takeby mouth.lisinopril (ZESTRIL, PRINIVIL) 20 mg tablet Take [...] kg (280 lb) SpO2 96% BMI 49.6 kg/r2Cprfhua: Well appearing, in no acute distress.Eyes: Conjunctiva normal, sclera normalNeck: No jugular venous distention, no palpable thyromegaly.Heart: Regular rhythm, S1, S2 normal, no S3, no S4. No murmur. No carotidbruits.Respiratory: Mildly decreased breath sounds bilaterally. Good respiratoryeffort.GI: Soft, nontender, bowel sounds normal, no palpable hepatosplenomegalyExtremities: Normal pulses in distal lower extremities. Moderate 2+bilateral lower extremity edema, left greater than right. There is skindiscoloration in the right lower extremityNeuro: Alert, cooperative with no focal deficit.Psych: Pleasant and cooperative.Skin: No rashes or wounds.CARDIOVASCULAR MEDICINE TESTING:Echocardiograms:11/28/2014 - [facility] with an ejectionfraction of 60%. There was no significant valvular disease identified.There was no comment on diastolic function.02/24/2017 - a 2-D echocardiogram performed at the [facility] low normal to mildly reduced left ventricular systolic functionwith an ejection fraction of 45-50%. There was minimal concentric leftventricular hypertrophy present. There was evidence of grade 1 diastolicdysfunction. There was mild mitral regurgitation. No estimate a right ventricular systolic pressure was possible on this study.Stress Evaluations:02/26/2016 - a Lexiscannuclear stress evaluation at the [facility] revealed a left ventricular ejection fraction of 50% with abnormalseptal wall motion. There was a small defect involving the inferior ohapical wall which was fixed. This was felt to likely represent artifact.There was no other evidence of Lexiscan stress-induced ischemia.02/24/2017 - a Lexiscan nuclear stress evaluation at the [facility] revealed mildly diminished left ventricular systolic function withan ejection fraction of 48%. There was a moderate sized anterior septaldefect which was partially reversible noted. This was read as suggestiveof possible stress-induced ischemia.Cardiac Catheterizations:07/16/2004 - a cardiac catheterization performed at the [facility] revealed normal coronary arteries. There was moderately decreasedleft ventricular systolic function noted with an ejection fraction of 30%. Moderately elevated right heart pressures and a normal cardiac index werenoted. The patient was continued onDemadex, Diovan, around oh lactone,Coreg 3.125 mg twice a day.06/12/2005 - a right and left heart catheterization was performed at [facility] revealing nonobstructive coronary arterydisease, left ventricular ejection fraction of 50%, moderate pulmonaryhypertension, severely elevated left ventricular end-diastolic pressure,normal cardiac output and normal cardiac index. The patient was startedon Lasix 40 mg twice a day.02/14/2008 - a right and left heart catheterization was performed at [facility] revealing mild 3 vessel coronaryartery disease, mildly reduced left ventricular systolic function (noejection fraction noted on the report), mild mitral regurgitation, mildlyelevated left ventricular end-diastolic pressure, mild pulmonaryhypertensionand a normal cardiac index. No changes were made to themedical regimen.02/28/2013 - a right and left heart catheterization performed at [facility] reveals mild 3 vessel coronary artery disease, mildpulmonary hypertension, preserved cardiac index and no evidence of cardiacshunt. This study was performed due to an abnormal stress test and asuspected patent foramen ovale versus ASD on echocardiogram. Medicaltherapy was recommended but not detailed in the report.03/05/2017 - a right and left heart catheterization was performed at [facility] revealing nonobstructive coronary artery disease,mildly reduced left ventricular systolic function by noninvasive imaging,moderately elevated right-sided heart pressures and mildly elevatedpulmonary capillary wedge pressure, low normalcardiac output, low normalcardiac index and moderate to severe systemic hypertension. Lasix 20 mgdaily was re-added. The patient was continued on anangiotensin-converting enzyme inhibitor and a beta lianna wasrecommended.Electrocardiograms:05/16/2017 - a 12-lead electrocardiogram reveals normal sinus rhythm at 58bpm. There is a left bundle branch block present.06/30/2017 - a 12-lead electrocardiogram reveals sinus bradycardia at 53bpm. There is a left bundle branch block present.IMPRESSION:1. 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 Edema, unspecified type - [...] ofcarvedilol. This was due to low blood pre ssures.4. Essential hypertension - ICD9: 401.9, ICD10: I10, blood pressure uppernormal today.5. Pulmonary HTN (HCC) - ICD9: 416.8, ICD10: I27.2, diagnosed by multiplecardiac catheterizations in the past.6. JEREMY (obstructive sleep apnea) - ICD9: 327.23, ICD10: G47.33, notcurrently treated as the patient is intolerant of her mask. She isapparently scheduled for a sleep study soon.7. Gastroesophagealreflux disease, esophagitis presence not specified -ICD9: 530.81, ICD10: K21.9, care per primary care team.8. Fibromyalgia - ICD9: 729.1, ICD10: M79.79. Restrictive lung disease - ICD9: 518.89, ICD10: J98.4, care perpulmonology.10. Obesity, Class III, BMI 40-49.9 (morbid obesity) ([facility]) - ICD9: 278.01,ICD10: E66.0111. Preoperative cardiovascular evaluation prior to planned right kneereplacement. The patient's risk for the surgery as moderate. I wouldplace her risk in the 5-10% range. No further workup is necessary priorto that procedure.12. Nonobstructive coronary artery disease by multiple car diaccatheterizations.PLAN:Discontinue Celebrex for one month..Patient will be starting CPAP at homein the near future.Monitor her lower extremity swelling, [...] medical record or to the requesting physician viaU.S. Mail.This document was generated utilizing Lif[employer]on dictation. I have reviewedand verified that the contents of the document are accurate with theexception of minor grammatical, spelling and punctuation errors.CONTACT INFORMATION:Thank you for allowing us to participate in the care of this very pleasantpatient. Please free to contact us if we can be of any furtherassistance.Italo Ann MD, [facility] and Mechelle DoddNavos Healthment of Cardiovascular MedicineSelect Medical [facility]rt and [facility] Institute[address] [address]Ndhooa: [phone] [facility] CNOVon [id number] Visit (CARDFT) --------ANDIRENUKA ALY ([id number]) 1955 FDate Time Provider Department06/30/17 12:30 PM ITALO ANN During your visit today, we recorded the following information about you: Pulse Respiration Blood pressure Weight 74/minute 18/minute 180/91 127 kg Height 1.6 Cece Ann MD 07/06/2017 1:12 PM [facility] and [facility]ascular [facility] and [facility]odd Department of CardiovascularMedicineOUTPATIENT VISIT DATE 06/30/17OUTPATIENT VISIT TYPENEWPRIMARY CARE PHYSICIAN:Peter Sosa, DO[address] [facility] [address]Kcxcf: [phone]: [phone] COMPLAINT:Patient presents with:CARD New Patient ConsultHISTORY OF PRESENT ILLNESS:Renuka Padron is a 61 year old female with a complex past medical history ofchronic diastolic heart failure, mild nonobstructive coronary artery disease,possible secundum type atrial septal defect, essential hypertension, pulmonaryhypertension, obstructive sleep apnea intolerant of face mask, gastroesophagealreflux disease, fibromyalg ia and either reactive or restrictive lung disease.The patient presents today as a new consult for weight gain and swelling. Femid previously been evaluated and under the care of Dr. Schilling of [facility]. Danika had multiple procedures performed which [...] year. She does statethat she was taking kupw-hki-peskdzn diet pills until recently. They were notworking. The patient has chronic complaints of dyspnea and dyspnea onexertion. She has been treated with lisinopril for her blood pressure.TheLasix was used to try to decrease her edema but was not successful. Thepatient and her son seem frustrated with the care they were given by theprevious cardiology team. By my review of the testingit seems the previouscardiologist was going by the guidelines with continued reasonable testing inan effort to try to help the patient's situation. She and her son seems veryupset with the lack of progress.PAST MEDICAL HISTORYDiagnosis Date- Anxiety- ASD (atrial septal defect)- Asthma- CAD (coronary artery disease)- CHF (congestive heart failure) ([facility])- DM (diabetes mellitus) ([facility])- Fibromyalgia- GERD (gastroesophageal reflux disease)- HTN (hypertension)- [...] of Onset- Adopted: Yes- Family history unknown: YesALLERGIES:ALLERGIESAllergen Reactions- Latex Rash- Penicillin Rash- Sulfa (Sulfonamide * RashMEDICATIONS:esomeprazole (NEXIUM) 40 mg capsule Take by mouth [...] (FIBERCON ORAL) Take by mouth.lisinopril (ZESTRIL, PRINIVIL) 20mg tablet Take by mouth once daily.tiZANidine HCl [...] kg (280 lb) SpO2 100% BMI 49.6 kg/p1Rrsatuc: Well appearing, in no acute distress.Eyes: Conjunctiva normal, sclera normalNeck: No jugular venous distention, no palpable thyromegaly.Heart: Regular rhythm, S1, S2 normal, no S3, no S4. No murmur. No carotidbruits.Respiratory: Mildly decreased breath sounds bilaterally. Good respiratoryeffort.GI: Soft, nontender, bowel sounds normal, no palpable hepatosplenomegalyExtremities: Normal pulses in distal lower extremities. Moderate 2+ bilaterallower extremity edema, left greater than right. There is skin discoloration inthe right lower ext remityNeuro: Alert, cooperative with no focal deficit.Psych: Pleasant and cooperative.Skin: No rashes or wounds.CARDIOVASCULAR MEDICINE TESTING:Echocardiograms:11/28/2014 - [facility] with an ejection fraction of60%. There was no significant valvular disease identified. There was nocomment on diastolic function.02/24/2017 - [facility] normal to mildly reduced left ventricular systolic function withan ejection fraction of 45-50%. There was minimal concentric left ventricularhypertrophy present. There was evidence of grade 1 diastolic dysfunction.There was mild mitral regurgitation. No estimate a right ventricular systolicpressure was possible on this study.Stress Evaluations:02/26/2016 - [facility] Lex[facility]an [facility] ejection fraction of 50% with abnormal septal wallmotion. There was a small defect involving the inferior oh apical wall whichwas fixed. This was felt tolikely represent artifact. There was no otherevidence of Lexiscan stress-induced ischemia.02/24/2017 - [facility] systolic function with an ejectionfraction of 48%. There was a moderate sized anterior septal defect which waspartially reversible noted. This was read as suggestive of possiblestress-induced ischemia.Cardiac Catheterizations:07/16/2004 - [facility]. There was moderately decreased leftventricular systolic function noted with an ejection fraction of 30%.Moderately elevated right heart pressures and a normal cardiac index werenoted. The patient was continued on Demadex, Diovan, around oh lactone, Coreg3.125 mg twice a day.06/12/2005 - a right and left heart catheterization was performed at [facility] revealing nonobstructive coronary artery disease,left ventricular ejectionfraction of 50%, moderate pulmonary hypertension,severely elevated left ventricular end-diastolic pressure, normal cardiacoutput and normal cardiac index. The patient was started on Lasix 40 mg twicea day.02/14/2008 - a right and left heart catheterization was performed at [facility] revealing mild 3 vessel coronary arterydisease, mildly reduced left ventricular systolic function (no ejectionfraction noted on the report), mild mitral regurgitation, mildly elevated leftventricular end-diastolic pressure, mild pulmonary hypertension and a normalcardiac index. No changes were made to the medical regimen.02/28/2013 - a right and left heart catheterization performed at [facility] reveals mild 3 vessel coronary artery disease, mild pulmonaryhypertension, preserved cardiac index and no evidence of cardiac shunt. Thisstudy was performed due to an abnormal stress test and a suspected patentforamen ovale versus ASD on echocardiogram. Medical therapy was recommendedbut not detailed in the report.03/05/2017 - a right and left heart catheterization was performed at [facility] revealing nonobstructive coronary artery disease, mildlyreduced left ventricular systolic function by noninvasive imaging, moderatelyelevated right-sided heart pressures and mildly elevated pulmonary capillarywedge pressure, low normal cardiac output, low normal cardiacindex andmoderate to severe systemic hypertension. Lasix 20 mg daily was re-added. Thepatient was continued on an angiotensin-converting enzyme inhibitor and a betablocker was recommended.Electrocardiograms:05/16/2017 - a 12-lead electrocardiogram reveals normal sinus [...] type - ICD9: 782.3, ICD10: R60.9, likely multi- factorialsimilar to problem #1.3. Chronic combined systolic anddiastolic congestive heart failure (HCC) -ICD9: 428.42, 428.0, ICD10: I50.42, most recent echocardiogram with improvedsystolic function and grade 1 diastolic dysfunction. Currently only onlisinopril due to the patient not tolerating carvedilol or diuretic therapy.4. Essential hypertension - ICD9: 401.9, ICD10: I10, blood pressure elevatedhere today, patient obviously upset during this visit.5. Pul monary HTN (HCC) - ICD9: 416.8, ICD10: I27.2, [...] way of shared medical record or to therequesting physician via U.S. Mail.This document was generated utilizing [employer] dictation. I have reviewed andverified that the contents of the document are accurate with the exception ofminor grammatical, spelling and punctuation errors.CONTACT INFORMATION:Thank you for allowing us to participate in the care of this very pleasantpatient. Please free to contact us if we can be of any further marleny tance.Italo Ann MD, FACCRobert and Mechelle DoddNavos Healthsharron of Cardiovascular MedicineClearsky Rehabilitation Hospital [facility] and V[facility] Institute[address] [address]Ucxkws: [phone] Referring Provider: NO PCP [[id number]]Allergies As of [...] Obesity, Class III, BMI 40-49.9 (morbid obesity) ([facility]) [E66.01]Prescriptions as of 06/30/2017 Sig: ESOMEPRAZOLE MAGNESIUM 40 MG * Take bymouth DAILY (6 AM). HYDROXYZINE HCL 10 MG TABLET Take by mouth three times da* CELECOXIB 200 MG CAPSULE Take by mouth twice daily. TEMAZEPAM 15 MG CAPSULE Take by mouth at bedtime as * KLOR- CON M20 ORAL Take by mouth. ROPINIROLE 0.5 MG TABLET Take 0.5 mg by mouth daily at* FIBERCON ORAL Take by mouth. LISINOPRIL 20 MG TABLET Take by mouth once daily. TIZANIDINE 4 MG CAPSULE Take by mouth daily atbedti*Problem List As Of Date 06/30/2017 Noted Resolved Obesity, Class III, BMI >= 40 (morbid obesity) *INVALID FOR* Status:Closed by LUC ANN MD on 07/06/17[facility] 06-30-2017 Protein mass concHNO ID: [id number]: Italo FultonyService: (none)Author Type: PhysicianType: Progress NotesFiled: 07/06/2017 1:12 PMNote Text:Heart and Vascular InstituteRobzuni hospital and [facility]le [facility]odd Department of Cardiovascular MedicineOUTPATIENT VISIT DATE 06/30/17OUTPATIENT VISIT TYPENEWPRIMARY CARE PHYSICIAN:Peter Sosa, DO[address] [place] [address]Tgkto: [phone]: [phone] COMPLAINT:Patient presents with:CARD New Patient ConsultHISTORY OF PRESENT ILLNESS:Renuka Morrow a 61 year old female with a complex past medical history ofchronic diastolic heart failure, mildnonobstructive coronary arterydisease, possible secundum type atrial septal defect, essentialhypertension, pulmonary hypertension, obstructive sleep apnea intolerantof face mask, gastroesophageal reflux disease, fibromyalgia and eitherreactive or restrictive lung disease.The patient presents today as a new consult for weight gain and swelling.She had previously been evaluated and under the care of Dr. Schilling [facility]. She has had multiple procedures [...] it. She is now not currently on any diuretic therapy. She believes the swelling has worsened in her lowerextremities all the way up herlegs and into her abdomen. She has gainedapproximately 11 pounds since February of this year. She does state that shewas taking qohp-lsu-kgqdgpp diet pills until recently. They were notworking. The patient has chronic complaints of dyspnea and dyspnea onexertion. She has been treated with lisinopril forher blood pressure.The Lasix was used to try to decrease her edema but was not successful.The patient and her son seem frustrated with the care they were given bythe previous cardiology team. 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 by the guidelines with continuedreasonable testing in an effort to try to help the patient's situation.She and her son seems very upsetwith the lack of progress.PAST MEDICAL HISTORYDiagnosis Date- Anxiety- ASD (atrial septal defect)- Asthma- CAD (coronary artery disease)- CHF (congestive heart failure) (HCC)- DM (diabetes mellitus) (HCC)- Fibromyalgia- GERD (gastroesophageal reflux disease)- HTN (hypertension)- OA (osteoarthritis)of knee- JEREMY (obstructive sleep apnea)- Pulmonary HTN (HCC)- Restrictive lung disease- Vitamin D deficiencyPAST SURGICAL HISTORYProcedure Laterality Date- APPENDECTOMY HX- CARDIAC CATH 02/2013 Mild CA D / Pulm HTN- CARDIAC CATH 03/05/2017 Normal- COLONOSCOPY 02/2013- ECHO 05/2009 EF 30% LVH- EGD 02/2013- FOOT SURGERY HX- GASTRIC BYPASS HX- PAST SURGICAL HISTORY OF - TONSILLECTOMY HXSocialHistorySubstance Use Topics- Smoking status: Passive Smoke Exposure - Never Smoker Types: Cigarettes- Smokeless tobacco: Not on file- Alcohol use NoFAMILY HISTORYProblem Relation Age of Onset- Adopted: Yes- Family history unknown: YesALLERGIES:ALLERGIESAllergen Reactions- Latex Rash- Penicillin Rash- Sulfa (Sulfonamide * RashMEDICATIONS:esomeprazole (NEXIUM) 40 mg capsule Take by mouth [...] kg (280 lb) SpO2 100% BMI 49.6 kg/x9Gpjpnfv: Well appearing, in no acute distress.Eyes: Conjunctiva normal, sclera normalNeck: No jugular venous distention, no palpable thyromegaly.Heart: Regular rhythm, S1, S2 normal, no S3, no S4. No murmur. No carotidbruits.Respiratory:Mildly decreased breath sounds bilaterally. Good respiratoryeffort.GI: Soft, nontender, bowel sounds normal, no palpable hepatosplenomegalyExtremities: Normal pulses in distal lower extremities. Moder ate 2+bilateral lower extremity edema, left greater than right. There is skindiscoloration in the right lower extremityNeuro: Alert, cooperative with no focal deficit.Psych: Pleasant and cooperative.Skin: No rashes or wounds.CARDIOVASCULAR MEDICINE TESTING:Echocardiograms:11/28/2014 - [facility] withan ejectionfraction of 60%. There was no significant valvular disease identified.There was no comment on diastolic function.02/24/2017 - [facility] to mildly reduced left ventricular systolic functionwith an ejection fraction of 45-50%. There was minimal concentric leftventricular hypertrophy present. There was evidence of grade 1 diastolicdysfunction. There was mild mitral regurgitation. No estimate a rightventricular systolic pressure was possible on this study.Stress Evaluations:02/26/2016 - a Lexiscan nuclear stress evaluation at the [facility] revealed a left ventricular ejection fraction of 50% with abnormalsep allyssa wall motion. There was a small defect involving the inferior ohapical wall which was fixed. This was felt to likely represent artifact.There was no other evidence of Lexiscan stress-induced ischemia.02/24/2017 - a Lexiscan nuclear stress evaluation at the [facility] revealed mildly diminished left ventricular systolic function withan ejection fraction of 48%. There was a moderate sized anterior septaldefect which was partially reversible noted. This was read as suggestiveof possible stress-induced ischemia.Cardiac Catheterizations:07/16/2004 - a cardiac catheterization performed at the [facility] revealed normal coronary arteries. There was moderately decreasedleft ventricular systolic function noted with an ejection fraction of 30%. Moderately elevated right heart pressures and a normal cardiac index werenoted. The patient was continued on Demadex, Diovan, around oh lactone,Coreg 3.125 mg twice a day.06/12/2005 - a right and left heart catheterization was performed at [facility] revealing nonobstructive coronary arterydisease, left ventricular ejection fraction of 50%, moderate pulmonaryhypertension, severely elevated left ventricular end-diastolic pressure,normal cardiac output and normal cardiac index. The patient was startedon Lasix 40 mg twice a day.02/14/2008 - a right and left heart catheterization was performed at [facility] revealing mild 3 vessel coronaryartery disease, mildly reduced left ventricular systolic function (noejection fraction noted on the report), mild mitral regurgitation, mildlyelevated left ventricular end-diastolic pressure, mild pulmonaryhypertension and a normal cardiac index. No changes were made to themedical regimen.02/28/2013 - a right and left heart catheterization performed at [facility] reveals mild 3 vessel coronary artery disease, mildpulmonary hypertension, preserved cardiac index and no evidence of cardiacshunt. This study was performed due to anabnormal stress test and asuspected patent foramen ovale versus ASD on echocardiogram. Medicaltherapy was recommended but not detailed in the report.03/05/2017 - a right and left heart catheterization was performed at [facility] revealing nonobstructive coronary artery disease,mildly reduced left ventricular systolic function by noninvasive imaging,moderately elevated right-sided heart pressures and mildly elevatedpulmonary capillary wedge pressure, low normal cardiac output, low normalcardiac index and moderate to severe systemic hypertension. Lasix 20 mgdaily was re-added. The patient was continued on anangiotensin- converting enzyme inhibitor and a beta lianna wasrecommended. Electrocardiograms:05/16/2017 - a 12-lead electrocardiogram reveals normal sinus rhythm at 58bpm. There is a left bundle branch block present.06/30/2017 - a 12- lead electrocardiogram reveals sinus bradycardia at 53bpm. There [...] (HCC)- ICD9: 428.42, 428.0, ICD10: I50.42, most recentechocardiogram withimproved systolic function and grade 1 diastolic [...] III, BMI 40-49.9 (morbid obesity) (HCC) - I CD9: 278.01,ICD10: E66.01PLAN:I have stressed the importance of the patient having her sleep studyperformed and making an attempt at whatever treatment may be recommended.Low-sodium diet.Monitor blood pressure at home.Continuous effort at weight loss.I have asked the patient to return to the officein roughly 2-3 weeks. Atthe time of her visit the above reviewed studies were not available. Wewillreview those with the patient and consider any further treatment.I have suggested to the patient that continuity of care may be importantin this situation since her past history is complex.A copy of this consultation note will be provided to the requestingphysician by way of shared medical record or to the requesting physicianvia U.S. Mail.This document was generated utilizing [employer]. Keira reviewedand verified that the contents of the document are accurate with theexception of minorgrammatical, spelling and punctuation errors.CONTACT INFORMATION:Thank you for allowing us to participate in the care of this very pleasantpatient. Please free to contact us if we can be of any furtherassistance.Italo Ann MD, [facility] and Mechelle Manciainscription house health centersharron of Cardiovascular MedicineHeart and Vascular InstituteMercy Health [facility]rb[facility] Hospital[address], [place] [address]Uwpatv: [phone] NormalCMercy Health [facility] Vital Signs Date TimeVital SignValuePerforming AxxnzpovpZpxwhriw62-63-9892 13:53-0400Body thhydp188.02 cmDaniel Sosa DO Work Phone: 1(751)941-[address] [place], [place] 4302109-24-2025 13:53-0400 Body mass index (BMI) [Ratio]38 kg/n0Ybsecr Sosa DO Work Phone: [phone]09-24-2025 13:53-0400 Body uvhhut21.52 kgDaniel Sosa DO Work Phone: 1(425)[address]09-24-2025 13:53-0400 Diastolic blood knumfbbf15 mm[Hg]Peter Sosa DO Work Phone: 1(372)298-[address] [place], [place] 8325309-24-2025 13:53-0400 Heart rate83 /minDaniel Sosa DO Work Phone: 2(425)936-[address] [place], [place] 4302109-24-2025 13:53-0400 Respiratory rate18 /minDaniel Sosa DO Work Phone: 1(604)575-[address] [place], [place] 8325309-24-2025 13:53-0400 SaO2% (BldA) [Mass fraction]96 %Peter Sosa DO Work Phone: 1(316)200-[address] [place], [place] 8325309-24-2025 13:53-0400 Systolic blood mkwmicjc424 mm[Hg]Peter Sosa DO Work Phone: 5(469)276-[address] [place], [place] 4302107-11-2025 12:31-0400 Body reqxwu457 cmVlad Joel MD Work Phone: [facility]07-11-2025 12:31-0400Body mass index (BMI) [Ratio]37.41 kg/x7VjtwnweVlad Joel MD Work Phone: [facility]07-11-2025 12:31-0400Body vhaypl24.8 kgMattnatalya Joel MD Work Phone: [facility]05-30-2025 11:39-0400Body .6 cmLeah Barrera MD Work Phone: [phone])[address]05-30-2025 11:39-0400Body mass index (BMI) [Ratio]34.5 kg/k7ZwglvlLeah Barrera MD Work Phone: 1(250)[address] [place], [place] 5493005-30-2025 11:39-0400Body ekhefr05.17 kgLeah Barrera MD Work Phone: 1(031)[address] [place], [place] 5493005-30-2025 11:39-0400Diastolic blood mcwrurbt27 mm[Hg]Leah Barrera MD Work Phone: 1(358)[address] [place], [place] 5493005-30-2025 11:39-0400Heart rate63 /min Leah Barrera MD Work Phone: 1(247)[address] [place], [place] 5493005-30-2025 11:39-0400Systolic blood jyhtttmc278 mm[Hg]Leah Barrera MD Work Phone: 1(815)[address] [place], [place] 5493004-02-2025 10:16-0400Body pbliav025.6 cmLeah Barrera MD Work Phone: 1(519)[address] [place], [place] 5493004-02-2025 10:16-0400Body mass index (BMI) [Ratio]34.5 kg/k6OqopheLeah Barrera MD Work Phone: 1(218)[address] [place], [place] 5493004-02-2025 10:16-0400Body llaxrw70.17 kgLeah Barrera MD Work Phone: 1(796)[address] [place], [place] 5493004-02-2025 10:16-0400Diastolic blood jepyohkx55 mm[Hg]Leah Barrera MD Work Phone: 1(329)[address] [place], [place] 5493004-02-2025 10:16-0400Heart rate76 /min Leah Barrera MD Work Phone: [facility] CenterQurtsgvuov41-55-6120 10:16-0400Systolic blood rzcwnemp55 mm[Hg]Leah Barrera MD Work Phone: [facility] CenterRhoxihhtrt36-16-4530 07:28-0400Body temperature 97.7 [degF]Estrella Angelo MD Work Phone: [facility]03-21-2025 07:28-0400Diastolic blood pqdcaxte24 mm[Hg]Estrella Angelo MD Work Phone: [facility]03-21-2025 07:28-0400Heart rate60 /minEstrella Angelo MD Work Phone: [facility]03-21-2025 07:28-0400 Respiratory rate20 /minEstrella Angelo MD Work Phone: [facility]03-21-2025 07:28-2575McF6% (BldA) [Mass fraction]97 %Estrella Angelo MD Work Phone: [facility]03-21-2025 07:28-0400Systolic blood ihwfujwx886 mm[Hg]Estrella Angelo MD Work Phone: [facility]03-20-2025 15:07-0400Body bqtopc923 Mehran Angelo MD Work Phone: [facility]03-20-2025 15:07-0400Body mass index (BMI) [Ratio]37.92 kg/m2Estrella Angelo MD Work Phone: [facility]03-20-2025 15:07-0400Body .07 kgEstrella Angelo MD Work Phone: [facility]01-09-2025 12:38-0500Body .[facility] 12:38-0500Body mass index (BMI) [Ratio]38.9 kg/i5BckykufgnWood County Hospital01-09-2025 12:38-0500Body juxdgeonmjt23.4 [degF][facility] Yyjdsk82-54-2051 12:38-0500Body cntqyy65.84 kgWood [facility]01-09-2025 12:38-0500Diastolic blood ljfkfnaw93 mm[Hg][facility] 10-27-2024 12:38-0500Heart rate80 /[facility] 10-27-2024 12:38-0500Respiratory rate18 /minWood County Hospital 10-27-2024 12:38-0987XwZ2% (BldA) [Mass fraction]98 %[facility]01-09-2025 12:38-0500Systolic blood bolfnwsi962 mm[Hg][facility]03-19-2024 14:24-0400Body .02 cm[facility]03-19-2024 14:24-0400Body mass index (BMI) [Ratio]35.9 kg/m2 [facility]03-19-2024 14:24-0400Body tdrfxuduphy54.3 [degF][facility]03-19-2024 14:24-0400Body .07 kg [facility]03-19-2024 14:24-0400Diastolic blood saiyyzwm20 mm[Hg][facility]03-19-2024 14:24-0400Heart rate72 /min [facility]03-19-2024 14:24-0400Respiratory rate20 /min [facility]03-19-2024 14:24-2867JwQ8% (BldA) [Mass fraction]99 %[facility]03-19-2024 14:24-0400Systolic blood tunjybes812 mm[Hg][facility]09-19-2023 14:15-0400 Body tqozcc731.02 Vinitahristted Romeo Other [employer] Other 09-19-2023 14:15-0400Body mass index (BMI) [Ratio] 36.31 kg/f9Sydmnadntoh Agueda Other [employer] Other 09-19-2023 14:15-0400Body cumrdgvxabf03.4 [degF] Christnilesher Agueda Other [employer] Other 09-19-2023 14:15-0400Body zwntzi07.99 kgChristopher Agueda Other [employer] Other 09-19-2023 14:15-0400Diastolic blood mm[Hg] Christopher Agueda Other [employer] Other 09-19-2023 14:15-0400Respiratory rate20 /min Christopher Agueda Other [employer] Other 09-19-2023 14:15-1877OcP6% (BldA) [Mass fraction]100 % Christopher Agueda Other [employer] Other 09-19-2023 14:15-0400Systolic blood lbuyffdw497 mm[Hg] Christopher Agueda Other [employer] Other 06-07-2023 08:50-0400Body piwusmlqwiq44.5 [degF]Ansuha Barber MD Work Phone: [facility]ch[facility] CenterMingleboxTaweli95-99-0683 08:50-0400Diastolic blood mm[Hg]Anusha Barber MD Work Phone: [facility]altch[facility] CenterMingleboxGafzph86-07-6454 08:50-0400Heart rate76 /min Anusha Barber MD Work Phone: [facility]ch[facility] CenterMingleboxYclwpz32-61-2317 08:50-5481ZlA4% (BldA) [Mass fraction]96 %Anusha Barber MD Work Phone: [facility] HospitalXkbcvl00-25-9856 08:50-0400Systolic blood unabggcg606 mm[Hg]Anusha Barber MD Work Phone: [facility] HospitalPsqpqf31-35-9099 04:20-0400Respiratory rate14 /minDjohnnie Barber MD Work Phone: [facility] HospitalQvtczr69-01-7940 11:45-0400Body faehhm384 cm Anusha Barber MD Work Phone: [facility] HospitalRddewp78-91-9196 11:45-0400Body mass index (BMI) [Ratio]40.07 kg/w9Kmmcusujey Barber MD Work Phone: [facility] HospitalWdviyc40-99-4142 11:45-0400Body twnwiv815.6 kg Anusha Barber MD Work Phone: [facility] HospitalHppihx61-16-4958 13:45-0400Body jxantf320.02 cmReynaldo Trejo Other [employer] Other 04-24-2023 13:45-0400Body mass index (BMI) [Ratio] 42.31 kg/k2NxpdxvReynaldo Trejo Other [employer] Other 04-24-2023 13:45-0400Body ehsgzf437.37 kgReynaldo Trejo Other [employer] Other 04-24-2023 13:45-0400Diastolic blood grojwlzn01 mm[Hg] Reynaldo Trejo Other [employer] Other 04-24-2023 13:45-0400Respiratory rate18 /Terra Trejo Other [employer] Other 04-24-2023 13:45-7393FtU1% (BldA) [Mass fraction]98 % Reynaldo Trejo Other [employer] Other 04-24-2023 13:45-0400Systolic blood twoxfeto690 mm[Hg] Reynaldo Trejo Other [employer] Other 03-21-2023 15:15-0400Body rvmcyq720.02 cmChristopher Agudea Other [employer] Other 03-21-2023 15:15-0400Body mass index (BMI) [Ratio]41.8 kg/h1Ixifphcxlfo Agueda Other [employer] Other 03-21-2023 15:15-0400Body vcgsihcdwxa77 [degF] Christnilesher Agueda Other [employer] Other 03-21-2023 15:15-0400Body wzkmov184.05 kgChristopher Agueda Other [employer] Other 03-21-2023 15:15-0400Diastolic blood grfysnlv14 mm[Hg] Christopher Agueda Other [employer] Other 03-21-2023 15:15-0400Respiratory rate20 /min Christopher Agueda Other [employer] Other 03-21-2023 15:15-1656VaI1% (BldA) [Mass fraction]98 % Christopher Agueda Other [employer] Other 03-21-2023 15:15-0400Systolic blood kiuakpnq253 mm[Hg] Christopher Agueda Other [employer] Other 12-19-2022 08:06-0500Body ektyfdoyiju29.7 [degF]Anusha Barber MD Work Phone: [place] Kkfcaa93-15-0543 08:06-0500Diastolic blood hvizzfvc08 mm[Hg]Anusha Barber MD Work Phone: [place] Pqpgkj37-32-6180 08:06-0500Heart rate73 /min Anusha Barber MD Work Phone: [place] Ptvima25-36-8482 08:06-0500Respiratory rate16 /minDavieli Barber MD Work Phone: [place] Soqzwi89-29-7262 08:06-2077EnT9% (BldA) [Mass fraction]96 %Anusha Barber MD Work Phone: [place] Wsthzs62-51-4251 08:06-0500Systolic blood alewdljq100 mm[Hg]Anusha Barber MD Work Phone: [place] Rrxodv02-58-7632 10:00-0500Body lkznoh804 cm Anusha Barber MD Work Phone: [place] Auoohp35-98-9674 10:00-0500Body mass index (BMI) [Ratio]43 kg/i6KmpciAnusha Barber MD Work Phone: [place] Ntzzyr46-08-7075 10:00-0500Body vikofd804.1 kg Anusha Barber MD Work Phone: [place] Cejmmx73-54-2915 11:00-0500Body knyomc733.02 Callie Henderson Other [facility] [employer] Other 12-13-2022 11:00-0500Body mass index (BMI) [Ratio] 43.61 kg/m2Mabel Henderson Other [facility] [employer] Other 12-13-2022 11:00-0500Body .3 [degF]Mabel Henderson Other [facility] [employer] Other 12-13-2022 11:00-0500Body zhyywr880.68 kgMabel Henderson Other [facility] [employer] Other 12-13-2022 11:00-0500Diastolic blood pcfjkurq62 mm[Hg] Mabel Henderson Other [facility] [employer] Other 12-13-2022 11:00-0500Respiratory rate18 /minMabel Henderson Other [facility] Other 12-13-2022 11:00-2302DnF6% (BldA) [Mass fraction]94 % Mabel Henderson Other [facility] [employer] Other 12-13-2022 11:00-0500Systolic blood ddicyilg852 mm[Hg] Mabel Henderson Other [facility] [employer] Other 12-08-2022 13:14-0500Body .02 cmDaniel A [employer] Work Phone: [phone]-Kebvl [place] [employer] [address] DO Work Phone: 1(425) 813-303312-08-2022 13:14-0500Body mass index (BMI) [Ratio] 43.93 kg/h7Dyqzvl A [employer] Work Phone: [phone]-Tgibb [place] [employer] [address] DO Work Phone: 1(755) 722-797412-08-2022 13:14-0500Body surface area Derived from formula2.12 l6Qbwoqc A [employer] Work Phone: [phone]-Yqvkq [place] [employer] [address] DO Work Phone: 1(170) 485-299012-08-2022 13:14-0500Body vzypok824.49 kgDaniel Julio Cesar Sosa Work Phone: [phone]-Bxtpj [place] [employer] [address] DO Work Phone: 1(413) 399-574412-08-2022 13:14-0500Diastolic blood pmuzpwyl40 mm[Hg] Peter Harrell Sosa Work Phone: [phone]-Jmppm [place] [employer] [address] DO Work Phone: 1(947) 126-369612-08-2022 13:14-0500Heart rate54 /minDaniel A Sosa Work Phone: [phone]-Zdkei [place] [employer] [address] DO Work Phone: 1(988) 660-530212-08-2022 13:14-0500Systolic blood myjjclgg450 mm[Hg] Peter Harrell [employer] Work Phone: [phone]-Wdppl [place] [employer] [address] DO Work Phone: 1(346) 297-939210-31-2022 10:00-0400Body grunhs557.02 cmReynaldo Trejo Other [employer] Other 10-31-2022 10:00-0400Body mass index (BMI) [Ratio] 43.55 kg/i3TzftvaReynaldo Trejo Other [employer] Other 10-31-2022 10:00-0400Body oszsqu854.54 kgReynaldo Trejo Other [employer] Other 10-31-2022 10:00-0400Diastolic blood mm[Hg] Reynaldo Trejo Other [employer] Other 10-31-2022 10:00-0400Respiratory rate18 /Terra Trejo Other [employer] Other 10-31-2022 10:00-0375TmU9% (BldA) [Mass fraction]99 % Reynaldo Davisdiff Other [employer] Other 10-31-2022 10:00-0400Systolic blood retplttr909 mm[Hg] Reynaldosara Davisdiff Other [employer] Other 09-13-2022 10:15-0400Body cuerdg092.02 cmReynaldo Bonillaff Other [employer] Other 09-13-2022 10:15-0400Body mass index (BMI) [Ratio] 44.85 kg/e3Ikzicq Maya Other [employer] Other 09-13-2022 10:15-0400Body ijxtee420.85 kgAshkansara Bonillaff Other [employer] Other 09-13-2022 10:15-0400Diastolic blood cyudcfes84 mm[Hg] Reynaldo Maya Other [employer] Other 09-13-2022 10:15-0400Respiratory rate18 /minDbruno Trejo Other [employer] Other 09-13-2022 10:15-8406AkS0% (BldA) [Mass fraction]97 % Reynaldo Maya Other [employer] Other 09-13-2022 10:15-0400Systolic blood vmetgoge220 mm[Hg] Reynaldo Trejo Other [employer] Other 08-09-2022 12:11-0400Body .02 cmDO Elda Schwerer Work Phone: 1(209)[address] [place], [place] 0491508-09-2022 12:11-0400 Body iyzoqwctkkw17.8 [degF]DO Elda Schwerer Work Phone: 1(810)[address] [place], [place] 0491508-09-2022 12:11-0400 Body qosjmo832.4 kgDO Elda Schwerer Work Phone: 1(514)[address] [place], [place] 0491508-09-2022 12:11-0400 Diastolic blood myehcmxt09 mm[Hg]DO Elda Schwerer Work Phone: 1(239)[address] [place], [place] 0491508-09-2022 12:11-0400 Heart rate74 /minDO Elda Schwerer Work Phone: 1(953)[address] [place], [place] 0491508-09-2022 12:11-0400 Respiratory rate18 /minDO Elda Schwerer Work Phone: 1(952)[address] [place], [place] 0491508-09-2022 12:11-0400 SaO2% (BldA) [Mass fraction]97 %DO Elda Schwerer Work Phone: 1(221)[address] [place], [place] 0491508-09-2022 12:11-0400 Systolic blood jbszxagy032 mm[Hg]DO Elda Schwerer Work Phone: 1(481)[address] [place], [place] 0491508-02-2022 12:15-0400 Body .02 cmReynaldo Trejo Other [employer] Other 08-02-2022 12:15-0400Body mass index (BMI) [Ratio] 44.58 kg/l7KtphwlReynaldo Trejo Other [employer] Other 08-02-2022 12:15-0400Body yjxwhz861.17 kgReynaldo Trejo Other [employer] Other 08-02-2022 12:15-0400Diastolic blood xmyfeqyu42 mm[Hg] Reynaldo Trejo Other [employer] Other 08-02-2022 12:15-0400Respiratory rate18 /minDbruno Maya Other [employer] Other 08-02-2022 12:15-2478UfP2% (BldA) [Mass fraction]96 % Reynaldo Trejo Other [employer] Other 08-02-2022 12:15-0400Systolic blood emcrslbe210 mm[Hg] Reynaldo Trejo Other [employer] Other 06-29-2022 15:45-0400Body .02 cmReynaldo Maya Other [employer] Other 06-29-2022 15:45-0400Body mass index (BMI) [Ratio] 44.99 kg/a4Gskelw Maya Other [employer] Other 06-29-2022 15:45-0400Body juagtm494.21 kgReynaldo Trejo Other [employer] Other 06-29-2022 15:45-0400Diastolic blood hhfhkodq08 mm[Hg] Reynaldo Trejo Other [employer] Other 06-29-2022 15:45-0400Respiratory rate18 /Terra Maya Other [employer] Other 06-29-2022 15:45-4685GbL1% (BldA) [Mass fraction]97 % Reynaldo Trejo Other [place] [employer] Other 06-29-2022 15:45-0400Systolic blood mm[Hg] Reynaldo Davisdiff Other [place] [employer] Other 06-29-2022 13:57-0400Body [degF]DO Elda Schwerer Work Phone: 1(247)[address]06-29-2022 13:57-0400 Body nulwvv825.21 kgDO Elda Schwerer Work Phone: 1(166)[address]06-29-2022 13:57-0400 Diastolic blood eiphpvdq99 mm[Hg]DO Elda Schwerer Work Phone: 1(930)[address]06-29-2022 13:57-0400 Heart rate81 /minDO Elda Schwerer Work Phone: 1(613)[address]06-29-2022 13:57-0400 Respiratory rate16 /minDO Elda Schwerer Work Phone: 1(588)[address]06-29-2022 13:57-0400 SaO2% (BldA) [Mass fraction]94 %DO Elda Schwerer Work Phone: 1(874)3-4148[facility]06-29-2022 13:57-0400 Systolic blood duheboax134 mm[Hg]DO Elda Schwerer Work Phone: 1(289)4-[facility]06-28-2022 15:45-0400 Body unjzxr582.02 Justin Romeo Other [place] [employer] Other 06-28-2022 15:45-0400Body mass index (BMI) [Ratio] 44.63 kg/d6Rsdisvwcsiy Agueda Other [employer] Other 06-28-2022 15:45-0400Body atmmpkundmm40 [degF] Christnilesher Agueda Other [employer] Other 06-28-2022 15:45-0400Body tcqiwz717.31 kgChristopher Agueda Other [employer] Other 06-28-2022 15:45-0400Diastolic blood mm[Hg] Christnilesher Agueda Other [employer] Other 06-28-2022 15:45-0400Respiratory rate20 /min Christnilesher Agueda Other [employer] Other 06-28-2022 15:45-8961VhC0% (BldA) [Mass fraction]95 % Christnilesher Agueda Other [employer] Other 06-28-2022 15:45-0400Systolic blood pnfmgtaz452 mm[Hg] Christnilesher Agueda Other [employer] Other 06-15-2022 14:40-0400Body oncimu433.02 Callie Henderson Other [employer] Other 06-15-2022 14:40-0400Body mass index (BMI) [Ratio] 44.88 kg/m2Mabel Henderson Other [employer] Other 06-15-2022 14:40-0400Body vghvhnpxavh37.9 [degF]Mabel Henderson Other [employer] Other 06-15-2022 14:40-0400Body .94 kgMabel Henderson Other [employer] Other 06-15-2022 14:40-0400Diastolic blood mm[Hg] Mabel Henderson Other [employer] Other 06-15-2022 14:40-0400Respiratory rate18 /minMabel Henderson Other [employer] Other 06-15-2022 14:40-5481DgA8% (BldA) [Mass fraction]92 % Mabel Henderson Other [employer] Other 06-15-2022 14:40-0400Systolic blood cwabzqhl229 mm[Hg] Mabel Henderson Other [employer] Other 04-20-2022 15:45-0400Body owjyeh460.02 cmReynaldo Trejo Other [employer] Other 04-20-2022 15:45-0400Body mass index (BMI) [Ratio] 45.06 kg/g8TvfqojReynaldo Trejo Other [employer] Other 04-20-2022 15:45-0400Body vfgilp502.4 kgReynaldo Trejo Other [employer] Other 04-20-2022 15:45-0400Diastolic blood pdncodvc46 mm[Hg] Reynaldo Davisdiff Other [employer] Other 04-20-2022 15:45-0400Respiratory rate18 /minDbruno Trejo Other [employer] Other 04-20-2022 15:45-7001TbX7% (BldA) [Mass fraction]95 % Reynaldo Davisdiff Other [employer] Other 04-20-2022 15:45-0400Systolic blood iwjdoqyz298 mm[Hg] Reynaldo Davisdiff Other [employer] Other 03-02-2022 14:44-0500Body hzyzup607.29 cmDO Elda Schwerer Work Phone: [facility]01-18-2022 16:00-0500 Body mass index (BMI) [Ratio]46.09 kg/s6Mcwxizh Schwerer Other [employer] Other 01-18-2022 16:00-0500Body pcetxy048.03 kgKaitlin Schwerer Other [employer] Other 01-18-2022 16:00-0500Diastolic blood vrklooba94 mm[Hg] Elda Schwerer Other [employer] Other 01-18-2022 16:00-0119TlS2% (BldA) [Mass fraction]93 % Elda Schwerer Other [employer] Other 01-18-2022 16:00-0500Systolic blood clvwcicu231 mm[Hg] Elda Schwerer Other [facility] Other 01-18-2022 14:45-0500Body mnuekr490.02 cmReynaldo Trejo Other [employer] Other 01-18-2022 14:45-0500Body mass index (BMI) [Ratio] 46.44 kg/x3LdngjlReynaldo Trejo Other [employer] Other 01-18-2022 14:45-0500Body oltgdv321.93 kgReynaldo Trejo Other [employer] Other 01-18-2022 14:45-0500Diastolic blood dqbqhofi01 mm[Hg] Reynaldo Trejo Other [employer] Other 01-18-2022 14:45-0500Respiratory rate18 /Terra Trejo Other [employer] Other 01-18-2022 14:45-6354BmC9% (BldA) [Mass fraction]95 % Reynaldo Trejo Other [employer] Other 01-18-2022 14:45-0500Systolic blood qiijcdfr851 mm[Hg] Reynaldo Trejo Other [employer] Other 12-08-2021 14:00-0500Body sazikt461.02 Jackson Hayden Other [employer] Other 12-08-2021 14:00-0500Body mass index (BMI) [Ratio] 46.97 kg/z8SihjgLaquita Hayden Other [employer] Other 12-08-2021 14:00-0500Body fktdavdwvvw11.3 [degF]Laquita Hayden Other [employer] Other 12-08-2021 14:00-0500Body iwqjaa531.29 kgLaquita Hayden Other [employer] Other 12-08-2021 14:00-0500Diastolic blood dudxumel97 mm[Hg] Laquita Hayden Other [employer] Other 12-08-2021 14:00-0500Respiratory rate18 /minEsasha Hayden Other [employer] Other 12-08-2021 14:00-5907HjD6% (BldA) [Mass fraction]93 % Laquita Hayden Other [employer] Other 12-08-2021 14:00-0500Systolic blood psaxsmfc901 mm[Hg] Laquita Hayden Other [employer] Other 10-07-2021 11:45-0400Body pscoju876.02 cmKatoñitolin Schwerer Other [employer] Other 10-07-2021 11:45-0400Body mass index (BMI) [Ratio] 46.16 kg/r5Tfcwglj Schwerer Other [employer] Other 10-07-2021 11:45-0400Body xyintv551.21 kgKaitlin Schwerer Other [employer] Other 10-07-2021 11:45-0400Diastolic blood mibsqznz32 mm[Hg] Elda Schwerer Other [employer] Other 10-07-2021 11:45-0400Respiratory rate18 /minKaitlin Schwerer Other [employer] Other 10-07-2021 11:45-1843TjJ9% (BldA) [Mass fraction]98 % Elda Schwerer Other [employer] Other 10-07-2021 11:45-0400Systolic blood kuwdijmc042 mm[Hg] Elda Schwerer Other [employer] Other 09-23-2021 12:00-0400Body kapubx766.02 cmReynaldo Trejo Jr. Other [employer] Other 09-23-2021 12:00-0400Body mass index (BMI) [Ratio] 45.84 kg/o9XkokibReynaldo Trejo Jr. Other [employer] Other 09-23-2021 12:00-0400Body .39 kgReynaldo Trejo Jr. Other [employer] Other 09-23-2021 12:00-0400Diastolic blood byhjnojl94 mm[Hg] Reynaldo Trejo Jr. Other [employer] Other 09-23-2021 12:00-0400Respiratory rate18 /Terra Trejo Jr. Other [employer] Other 09-23-2021 12:00-8312ClC1% (BldA) [Mass fraction]96 % Reynaldo Davismaxim Carvajal Other [employer] Other 09-23-2021 12:00-0400Systolic blood xlxdzyec392 mm[Hg] Reynaldo Trejo Other [employer] Other 09-22-2021 12:15-0400Body ewpbfr538.02 cmChristnilesher Agueda Other [employer] Other 09-22-2021 12:15-0400Body mass index (BMI) [Ratio] 45.34 kg/m3Ymsbmacwgho Agueda Other [employer] Other 09-22-2021 12:15-0400Body eqckmqjnktv50.3 [degF] Christopher Agueda Other [employer] Other 09-22-2021 12:15-0400Body krcukt917.12 kgChristopher Agueda Other [employer] Other 09-22-2021 12:15-0400Diastolic blood viqzvapa24 mm[Hg] Christopher Agueda Other [employer] Other 09-22-2021 12:15-0400Respiratory rate20 /min Christopher Agueda Other [employer] Other 09-22-2021 12:15-4205VeO0% (BldA) [Mass fraction]94 % Christopher Agueda Other [employer] Other 09-22-2021 12:150400Systolic blood vqendggk191 mm[Hg] Yuan Romeo Other [facility] Other Encounters Encounter DateEncounter TypeCare ProviderFacilityStart: 07-13-2025 End: 14-93-2898sxpyvsdmhnWfkprqlb Talal SarminiFacility:[facility]tart: 07-12-2025 End: 13-96-4268xrwqaeqvppNhgjhp A Sosa DO Work Phone: [facility] Work Phone: Start: 07-12-2025 End: 49-77-6397Lxsndae encounter procedureMabel Henderson MD-[facility] Work Phone: Start: 31-86-4896Snx-patient / Non-visitMabel Henderson MD-[facility] Work Phone: Start: 06-13-2025 End: 36-89-0893zqpsysjrdnJvnumwoo Talal SarminiFacility:Anel DHStart: 14-80-9558wzdznrqzpcKUSRCBA D BEALFacility:[facility]CASTERtart: 04-28-2025 End: 90-91-6670Izuppx consultation new/estab patient 60 Daphnie Joel MD Work Phone: [facility] on above:Left knee pain, unspecified chronicity (Primary Dx); Left hip pain; History of total knee arthroplasty, left; Primary osteoarthritis of left hipStart: 04-28-2025 End: 72-59-8548Nodftnctau hospital visit by Татьяна Joel MD Work Phone: [facility] on above: ArrivedStart: 70-99-0398aqyqctyekjXTVFPJJ D BEALFacility:[facility] Start: 04-11-2025 End: 30-52-3382gjgdhtrasvPaurlb [facility] Work Phone: Start: 04-11-2025 End: 51-24-8311Axlqgoci ReferredPeter Sosa DO-[facility] Start: 03-17-2025 End: 90-49-2247Xviqqb flowsEdith Barrera MD Work Phone: [facility] NORWALKStart: 03-17-2025 End: 85-13-7316Lelgpr flowsheetLeah Barrera MD Work Phone: [facility] NORWALKStart: 03-17-2025 End: 25-92-8873bumdhalqeeVFHBRU H TIMMISNot AvailableStart: 03-17-2025 End: 88-81-6262Pzcwpg outpatient visit 25 minutesHihaven Barrera MD Work Phone: [facility] MEDICAL CENTERKComment on above:Allergic rhinitis, unspecified seasonality, unspecified trigger (Primary Dx); Sensorineural hearing loss (SNHL), bilateral; Nontoxic multinodular goiter (CMS/HCC)Start: 03-14-2025 End: 44-01-0501gukqwsybqpFUQCDTT S WRIGHTNot AvailableStart: 03-14-2025 End: 75-50-3731Yoacjqb encounter Bora Constantino AUD Work Phone: NOOBERTIN RIVERADIOSCAR AUDIOLOGYComment on above: Sensorineural hearing loss, bilateral (Primary Dx); Tinnitus, bilateralStart: 03-14-2025 End: 78-76-8608Mdogki Ladi Constantino AUD Work Phone: [facility]ICT AUDIOLOGYStart: 03-14-2025 End: 26-40-9346Khumcb Ladi Constantino AUD Work Phone: NODVIELKAMichael BENEDICT AUDIOLOGYStart: 01-24-2025 End: 56-52-1144Qhuxphgmp Result EncounterHihaven Barrera MD Work Phone: noms External Department UnsolicitedStart: 01-24-2025 End: 83-19-4951Tpokxqqry Result EncounterLeah Barrera MD Work Phone: noms External Department UnsolicitedStart: 01-18-2025 End: 72-64-0770Vltckv flowsheetLeah Barrera MD Work Phone: noms CI ENTStart: 01-18-2025 End: 72-07-8663Kcqrfo flowsheetLeah Barrera MD Work Phone: noms CI ENTStart: 01-18-2025 End: 43-47-2243Aftlaz outpatient visit 25 minutesHihaven Barrera MD Work Phone: noms CI ENTComment on above:ETD (Eustachian tube dysfunction), bilateral (Primary Dx); Ear fullness, bilateral; Swollen gland; Multinodular goiter (CMS/HCC)Start: 01-18-2025 End: 52-08-3285mptifovxenHOEADQ H TIMMISNot AvailableStart: 01-05-2025 End: 61-32-1048czcbdmdvpcGVEW S SMITHMercy Arkoma HospitalStart: 01-05-2025 End: 24-51-0738Ghfabnwevk hospital visit by Tommie Angelo MD Work Phone: m[facility]z [facility] MED SURGComment on above:Hypotension after procedure (Primary Dx)Start: 11-14-2024 End: 45-16-6456xpsxnodtgrXIMAJareth Mcintyre HospitalStart: 11-14-2024 End: 70-18-8306Jdveukayko hospital visit by physicianM[facility] LaboratoryStart: 10-27-2024 End: 22-95-4196wuxpttppodPjfqkdxzzAC[facility] Work Phone: Start: 10-27-2024 End: 66-52-7902Jghgrwm encounter [facility] Work Phone: Start: 06-06-2024 End: 78-15-7599Ilwinzrjm identifierDavid Cheng Barber Work Phone: jiS [place]oryStart: 06-03-2024 End: 52-77-8745Knsiasuao identifierDavid Cheng Barber Work Phone: jis [place]ickoryStart: 06-01-2024 End: 12-12-2070zgnnkqkddkYczxldud Talal SarminiFacility:FTMCStart: 05-25-2024 End: 95-34-9668Bojzxagzn identifierTaylor Eli Pierre Work Phone: [facility] Work Phone: Start: 05-25-2024 End: 57-76-4743Dmmojr outpatient visit 25 minutesTaylor D Ignacio Work Phone: jis [place]ickoryStart: 03-28-2024 End: 34-03-8733owodhcvyekEuzwgfhm Talal SarminiFacility:Anel DHStart: 03-23-2024 End: 03-70-6908Ntkkiz outpatient visit 15 minutesDavid Cheng Barber Work Phone: jis [place]ickoryStart: 02-12-2024 End: 92-38-5896Cqorhwtvv Result EncounterHilary Marci Barrera MD Work Phone: noms External Department UnsolicitedStart: 02-12-2024 End: 72-92-7466Ysswhwljn Result EncounterHilary Marci Barrera MD Work Phone: noms External Department UnsolicitedStart: 01-27-2024 End: 65-69-5253Fafpofapa Result EncounterHilary Marci Barrera MD Work Phone: noms External Department UnsolicitedStart: 01-27-2024 End: 27-66-8219Frmswvikw Result EncounterHilary Marci Barrera MD Work Phone: noms External Department UnsolicitedStart: 01-05-2024 End: 15-06-1832ldtyiemuuzGuhqfxycsACMC Healthcare System Work Phone: Start: 01-05-2024 End: 29-57-0149Brpfgsv encounter elieF[facility]e [facility] Work Phone: Start: 11-03-2023 End: 69-40-2635qqpmzrbtseLuyulspgpvb Agued[facility] Other Start: 66-80-0652Dkgoglnrn encounterChristopher AvendanoFPG Pulmonary DiseaseStart: 09-22-2023 End: 85-11-6996eczdlriqbvOuht Bakhous Other [facility] Other Start: 38-34-7106Flrlgxvtr encounterAziz BakhousFPG NephrologyStart: 08-07-2023 End: 42-04-3661Jcwanw outpatient visit 10 minutesTaylor D Dackin Work Phone: jis [place]ickoryStart: 07-09-2023 End: 14-36-4447Twghptwii identifierDasujey Barber Work Phone: jis HickoryStart: 07-07-2023 End: 71-80-9846meajpvpefbEsrrnxxbjnx Agueda Other [facility] Other Start: 85-19-4380Tpppes outpatient visit 15 minutes Christopher AvendanoFPG Pulmonary DiseaseStart: 07-03-2023 End: 49-26-1203Rlvbwrohy identifierTaylor D Dackin Work Phone: jis HickoryStart: 06-29-2023 End: 86-39-2554Vqadvzoop identifierTaylor D Dackin Work Phone: jis HickoryStart: 06-29-2023 End: 33-52-9225Rhnjxa follow up visit related to original Dyllan Barber MD [facility]Start: 06-04-2023 End: 94-27-6830asyjpdxzpfBhsenm Cundiff Other [place] [facility] Other Start: 35-29-7939Qerbpwbtt encounterReynaldo Trejo [facility] Care ClinicStart: 72-16-6314juahuagwtvWGMaude SOSA Facility:W3Jebsl: 03-20-2023 End: 80-90-5126addwvhfnttRagj Bakreynasid Other [facility] Other Start: 41-14-0329Yqvatdcgo encounterAzoliver ShannonFPG NephrologyStart: 03-19-2023 End: 16-91-0140Wvvrtduqq identifierTacatherine Pierre Work Phone: [facility] NASHStart: 03-19-2023 ambulatoryNARENDRANATH LAKSHMIPATHY .Facility:A0Ofcwn: 03-19-2023 End: 53-88-5822Ueaorqwijv and management of inpatientDavid Richard BRYANT Work Phone: [facility] HospitalComment on above:Infection and inflammatory reaction due to other internal joint prosthesis, initial encounter ([facility])Start: 03-18-2023 End: 62-61-5848Kphstnjwh identifierMadonna Cavanaugh Work Phone: jis [place]ickoryStart: 03-17-2023 End: 76-32-3750Umetuhlvr identifierMadonna Cavanaugh Work Phone: jis [place]ickoryStart: 03-15-2023 End: 34-45-1174iklxnfftuzGD JEFFREY PAY .Facility:K0Jrwgs: 28-49-0852Ubghriukhm Viet Sosa Work Phone: [facility] Work Phone: Start: 02-09-2023 End: 63-17-4972fklckmbquwFnluhv Cundiff Other [place] [facility] Other Start: 11-71-5240Upbbbw-up encounterReynaldo Trejo [facility] ClinicStart: 01-26-2023 End: 04-05-5281lzoixmgsndCjehbw Cundiff Other [facility] Other Start: 42-14-6663Mzqcgixmx encounterReynaldo Davisdiff [facility] Care ClinicStart: 01-07-2023 End: 27-81-2960qximvdphbnRG LEAH TIMMISFacility:B5Sldxe: 01-06-2023 End: 62-10-5419ajtnakebwhNbhvcikfzur Agueda Other [facility] Other Start: 75-14-6220Ielvjs outpatient visit 15 minutes Yuan Campo Pulmonary DiseaseStart: 12-18-2022 End: 68-36-4636ktuiwfonsnGJCD SOLIS .Facility:I2Duffi: 11-24-2022 End: 95-40-7293Kslhzcqeq Danny Barber Work Phone: [facility]Start: 11-20-2022 End: 72-57-7717iukuhyzrbjKiranw Cundiff Other [facility] Other Start: 42-45-3778Bnawbxyzd encounterReynaldo Trejo [facility] Care ClinicStart: 11-04-2022 End: 41-59-5173gkkmwkowekKA LVAD OMALLEYFacility:A8Llfqw: 10-24-2022 End: 40-81-4469sotqzmavznRA DAVIDSON SHAYFacility:N9Bblwn: 10-23-2022 End: 57-45-6558Dfsapf follow up visit related to original Dyllan Barber MD [facility] [place]: 10-23-2022 End: 30-68-1397Tlhqzarti Danny Barber Work Phone: jis [place]oryStart: 10-06-2022 End: 84-23-4198Oyijdycjs identifierDasujey Barber Work Phone: [facility] HospitalStart: 10-02-2022 End: 14-97-7854Amfzqttic identifierJojohn Goldman Gomez Work Phone: [facility] Centerart: 10-02-2022 End: 10-37-3043Yddodnmubc and management of inpatientDasujey Barber MD Work Phone: [facility] HospitalComment on above:Mechanical loosening of internal left knee prosthetic joint, subsequent encounter (Primary Dx)Start: 09-30-2022 End: 21-27-1644ockezbiqbgYyih Bakhous Other [place] [facility] Other Start: 80-90-9765Lsqipe outpatient visit 15 minutes Mabel FryG NephrologyStart: 09-26-2022 End: 67-42-4480Ykwkliqum identifierTacatherine Constantino Work Phone: jis Therapy HickoryStart: 50-17-3287gwcvljealiVvDulce SosaFacility:24340Vsapt: 98-96-4658Korefd outpatient visit 25 minutesDakp Sosa Work Phone: [phone]-Qkzaq [facility] [address] DO Work Phone: Start: 09-23-2022 End: 25-98-7615zlssvorfoqIWYR BAKHOUSFacility:G1Vdlzc: 09-19-2022 End: 56-99-6445Wmcjzondp identifierDasujey Barber Work Phone: jis [place]oryStart: 09-18-2022 End: 59-89-5557iaqawtvvwvPENJPXD SCHWERERFacility:N5Tlass: 09-03-2022 End: 50-44-6318Zojcdf outpatient visit 25 minutesDasujey Cheng Richard Work Phone: jis [place]oryStart: 08-18-2022 End: 64-93-5845bxrjweqokwApipwv Cundiff Other [facility] Other Start: 85-86-2642Njhhhh-up encounterDonsara Trejo [facility] ClinicStart: 08-05-2022 End: 86-37-8250eyzzyhkvyhOdzttn Maya Other [facility] Other Start: 14-99-3622Qnqmrootv encounterDonsara Trejo [facility] Care ClinicStart: 08-04-2022 End: 76-43-7147avjnpzofmiOctrky Cundiff Other [facility] Other Start: 54-64-0476Nnaegzxmp encounterDonsara Trejo [facility] Care ClinicStart: 07-09-2022 End: 46-84-7490Wxtvqx outpatient visit 15 minutesDavieli VinsonCheng Richard Work Phone: jis [place]oryStart: 07-01-2022 End: 30-60-9473cdgqxurugvSbcmix Cundiff Other [facility] Other Start: 31-43-7241Hdlxfu-up encounterDonsara Trejo [facility] Care ClinicStart: 06-05-2022 End: 76-61-0009vkxvcxjjzjUU PETER A HERRINGFacility:Y7Bzjxn: 05-29-2022 End: 06-37-0147oornubvgsyBT PETER A HERRINGFacility:D5Rviqy: 05-28-2022 End: 47-31-5015mgwpioibzgZvsolzaxyqc Agueda Other [facility] Other Start: 56-97-8069Cepbpyhss encounterChristopher AvendanoG [facility] Medicine [place]kyStart: 05-27-2022 End: 04-40-3720Qnigdycoa department patient visitDO Elda Sibley Work Phone: [facility] RoomStart: 05-26-2022 End: 75-50-7399Fwasuc outpatient visit 15 minutesDavid Cheng Barber Work Phone: jis [place]Start: 05-21-2022 End: 39-16-2685Tcfpzvj encounter procedureDO Elda Lynnmimi Work Phone: [facility] Strub RdStart: 05-20-2022 End: 43-12-7758dryoscfvbmIslwuj Cundiff Other [facility] Other Start: 79-95-3654Geohpg-up encounterDonsara Trejo [facility] Coordinated Care ClinicStart: 91-83-1970Muefmvkwcv RecurringDO Elda Castillokarissa Work Phone: [facility] ManagementStart: 05-13-2022 End: 61-52-0431nlgbzkrpxySUCFWQK SCHWERERFacility:I2Yddrd: 05-12-2022 End: 03-55-7338Wkelmt outpatient visit 25 minutesDavieli Barber Work Phone: jis Christiano Garayatrium health waxhawStart: 05-08-2022 End: 27-89-0519nbjvynwtcmOK ANUSHA AGUEROFacility:T8Wuwem: 04-29-2022 End: 01-87-3666pfmulasxluMQ MISCFacility:Q4Hohwc: 04-25-2022 End: 33-67-4358fjtfhctbijRP Lucinda DESAIFacility:G8Gxkzb: 04-24-2022 End: 43-74-9945dvrdeluqabKT LUCÍA GRIMALDO .Facility:A4Tkupo: 04-16-2022 End: 99-30-9352veafmquvbhFmxiam Cundiff Other [facility] Other Start: 26-92-0636Tzlugz-up encounterReynaldo Trejo [facility] Care ClinicStart: 96-44-5196Cngnrqbmtu [facility] Elda Sibley Work Phone: [facility]Cancer CenterStart: 04-15-2022 End: 28-62-4834bgzhrcxuavRupqfldoonk Agueda Other [facility] Other Start: 42-34-7956Nzxzse outpatient visit 15 minutes Yuan TobinnoFPG Pulmonary DiseaseStart: 04-02-2022 End: 23-97-8321ydwssvgvjbUypc Bakreynas Other [facility] Other Start: 20-13-4293Fjwjlw outpatient visit 15 minutes Aziz BakreynasFPG NephrologyStart: 04-01-2022 End: 10-43-5557rzgoksgwrgYD ESSAM ELASHIFacility:X7Kcvmn: 56-10-4167Kd Renewal Elda Sibley Work Phone: [phone]-LkjnxWoodwinds Health CampusScott 250 DO Work Phone: Start: 03-20-2022 End: 08-38-3026yrtvfgijolYkdusa Cundiff Other [place] [facility] Other Start: 41-61-0544Myaefykqy encounterReynaldo Trejo [facility] ClinicStart: 03-13-2022 End: 27-20-1606xntwaouderQilz Bakhous Other [facility] Other Start: 65-03-8080Ikqqzrodv encounterAzoliver BakhousFPG Urgent Care ClydeStart: 03-04-2022 End: 74-42-7906ivgjwdgcyrJhsd Bakhous Other [facility] Other Start: 81-01-4633Llqzwpace encounterAziz BakhousFPG NephrologyStart: 02-27-2022 End: 14-06-1760svinwbbwbxNnatuxt Schwerer Other [facility] Other Start: 85-56-2910Fkycosyei encounterKaitlin Schwerer [facility] HospitalyStart: 02-10-2022 End: 66-04-7816dqcikzrnxlXskey Chaban Other [facility] Other Start: 06-92-6107Jopfohvuh encounterKayobani JasonFPG Pulmonary DiseaseStart: 02-05-2022 End: 22-32-9735ikptcmjacqUyiyzx Cundiff Other [facility] Other Start: 75-79-2652Bdzxhl-up encounterReynaldo Trejo [facility] Centertart: 01-27-2022 End: 64-31-7588zarzzyfkvhYrkwizt Schwerer Other [facility] Other Start: 79-60-4596Afqfvtvfu encounterKaitlin Schwerer [facility] HospitalyStart: 01-22-2022 End: 34-20-4269jfghremgehZgju Bakhous Other [facility] Other Start: 95-38-7014Krdlihejw encounterAziz BakhousFPG NephrologyStart: 01-09-2022 End: 02-68-2627wohqojuuybYzniqnc Schwerer Other [facility] Other Start: 68-79-5801Fpripmanl encounterKaitlin Schwerer [facility] [place]kyStart: 21-68-3128ooulxtabnjKGN Daphne Angelo Facility:[id number]: 12-11-2021 End: 60-56-4428cvzileaevzPtqbsop Schwerer Other [employer] [employer] Other Start: 81-40-3348Ignneptlz encounterKaitlin Schwerer [facility] Medicine [place]Start: 12-10-2021 End: 86-26-4105qjcmoegyoyBdvjco Cundiff Other [employer] Other Start: 33-19-8563Mierdmecz encounterReynaldo Trejo [facility] Care ClinicStart: 12-03-2021 End: 29-14-7762etmdilwhcvNbfwyuw Schwerer Other noSurIDx [facility] Other Start: 71-46-8576Yqjrhqxbd encounterKaitlin Schwerer [facility] Medicine [place]Start: 11-18-2021 End: 07-70-1260sxrchqghayJhkgr Chaban Other noSurIDx [facility] Other Start: 73-64-4387Jaknaaeyc encounterKamal ChabanFPG Pulmonary DiseaseStart: 11-05-2021 End: 96-77-5160xwmkodcqxfVgozrw Cundiff Other [facility] Other Start: 67-97-6409Rstkfy-up encounterReynaldo Davisdiff [facility] Care ClinicStart: 27-14-2443Oezmai outpatient visit 25 minutesKaitlin SchwererF Family Medicine [place]Start: 10-22-2021 End: 18-69-8449hukjatyrziQndm Fitt Other [employer] [employer] Other Start: 77-43-1708Tkqsaourr encounterDawn FittFirelands Coordinated Care St. Cloud Hospitaltart: 10-03-2021 End: 97-93-1117uhzilywxtjUrzgvze Schwerer Other [employer] [employer] Other Start: 92-24-3761Ekkodjcrb encounterKaitlin Schwerer [facility] Medicine [place]Start: 09-62-9029ivmeqefdwvTmDulce Sosa Facility:[id number]: 09-25-2021 End: 64-63-5829nsmuizsdocMyvuz Elashi Other [facility] Other Start: 91-79-6446Oskjae outpatient visit 15 minutes Essam ElashiFPG NephrologyStart: 09-05-2021 End: 02-87-9470kqxmybnvflAzjwzvb Schwerer Other noSurIDx [facility] Other Start: 20-56-3427Oqtbefyyl encounterKaitlin Schwerer [facility] Family Medicine [place]Start: 19-66-5464Qgmjijllm encounterKaitlin Schwerer [facility] Family Medicine [place]Start: 38-33-7570Ozbwcnwep encounterKaitlin Schwerer [facility] Family Medicine [place]Start: 79-19-7002Gmnozbfzx encounterKaitlin Schwerer [facility] Family Medicine [place]Start: 83-12-3195Lxdqbr outpatient visit 25 minutes Elda SchwererF Family Medicine [place]kyStart: 34-09-9558Yhggub-up encounter Reynaldo Trejo Jr.[facility] Centertart: 00-07-5027Ohqoqi outpatient visit 15 minutesChristopher AvendanoFPG Pulmonary DiseaseStart: 87-73-5057Qsjwfggfl encounterKaitlin SchwererF Family Medicine [place]Start: 08-03-2018 End: 33-02-1006Mzreras encounterDASUJEY BARBERFacility:Christiano DuongStart: 05-27-2018 End: 07-30-3270Lxsncby encounterITALO FULTONSumma Health Start: 04-08-2018 End: 48-53-4767Nvbhaik encounterITALO VALLADARES [facility] Start: 01-04-2018 End: 07-21-9984Qsjctmm encounterITALO VALLADARES [facility] Start: 12-22-2017 End: 21-01-2620Vqfdgbm encounterDASUJEY HOWARDYOANDYFacility:Stevo GoldStart: 07-21-2017 End: 41-56-1379Wrswzlw encounterJEJEANETTE VALLADARES [facility] Start: 06-30-2017 End: 09-11-1690Qmruadz encounterJEJEANETTE VALLADARES [facility] Start: 06-17-2017 End: 30-74-7733Tyzhtgc encounterRAMAYCO ALEJOFacility:UTMCEchocardiogram normal Elda E Schwerer Work Phone: [phone]-Lxpoa [facility] [address] DO Work Phone: Imaging result normalKaitlin E Schwerer Work Phone: [phone]-Jlnst [facility] 250 DO Work Phone: Procedures DateProcedureProcedure DetailPerforming ClinicianStart: 04-28-2025 End: 47-64-2306Loevosajof exam knee complete 4/more viewsMattnatalya Joel MD Work Phone: Start: 19-78-8732YSRBWTRD FUNCTION TESTSDaphney VALLADARES Work Phone: start: 43-75-9673Sg soft tissue head & neck real time imge docTrace Barrera MD Work Phone: Start: 01-06-2025 End: 96-92-3754Qyeqfq ecg 1-3 leads w/interpretation & reportUnknown Provider ResultStart: 83-81-2456IXQYW METABOLIC PANEL W/ REFLEX TO MG FOR LOW [place] [employer] - TECHNICAL ACCOUNT MANAGER Work Phone: Start: 67-69-9645Fqrja count complete auto&auto difrntl wbcShciro Prince MANAGER HOUSE - TECHNICAL ACCOUNT MANAGER Work Phone: Start: 24-21-2095Juxuqq ecg 1-3 leads w/interpretation & reportUnknown Provider ResultStart: 44-80-8985Kcwa tthrc r-t 2d w/wom-mode compl spec&colr dShirmilo Harrell [facility] Work Phone: Start: 50-28-5802Trnztyilss microscopic onlyDanika Harrell [facility] Work Phone: Start: 32-38-2038Olkak dip stick/tablet rgnt auto w/o microscopyDanika Harrell [facility] Work Phone: Start: 87-26-1912Nmskzgibjt exam chest 2 viewsDanika Harrell [facility] Work Phone: Start: 43-46-8169Zorklysrune during operationEstrella Angelo MD Work Phone: Start: 80-66-8836Mypbsf ecg 1-3 leads w/interpretation & reportUnknown Provider ResultStart: 40-16-5989BCOPXPY, WHOLE BLOODEstrella Angelo MD Work Phone: Start: 26-86-1797Oio routine ecg w/least 12 lds w/i&r Corinne Gunter MANAGER HOUSE - CRNAStart: 54-23-8979Tbim count misc body fluids w/differential Joe Angelo MD Work Phone: Start: 35-34-8519Otlqrtb id light microscopy luis tiss/any fluidEstrella Angelo MD Work Phone: Start: 05-25-2024 End: 25-07-0310Fdohkikdceqbcx aspir&/inj major jt/bursa w/o usTaylor Ignacio PA-C Start: 05-25-2024 End: 18-01-1662Ossrskxbl injectionTaylor Ignacio PA-CStart: 03-23-2024 End: 88-87-2217Mtqbimakqd examination knee 3 jairoDasujey Barber MDStart: 56-98-1506Ic soft tissue neck w/o contrast materialHilary Marci Barrera MD Work Phone: Start: 13-95-2867Ft soft tissue head & neck real time imge docmHilary Marci Barrera MD Work Phone: Start: 07-03-2023 End: 10-75-1829Lhtdaewhxsnkkt aspir&/inj major jt/bursa w/o usDasujey Barber MD Start: 06-29-2023 End: 95-54-2722Vajupgakea examination knee 3 viewsAnusha Barber MDStart: 77-17-5356Tioo-cov-2 detection by dna/rnaAnusha Barber MD Work Phone: start: 98-93-7319CBJSO OXIMETRY, Willian Squires MD Work Phone: Start: 84-41-2527IOUDX OXIMETRY, Willian Squires MD Work Phone: Start: 95-11-8547RDCLM OXIMETRY, Willian Squires MD Work Phone: Start: 02-36-0801ORUOJ OXIMETRY, Willian Squires MD Work Phone: Start: 22-77-3164MXHPM OXIMETRY, Willian Squires MD Work Phone: Start: 14-36-1761QQCQM OXIMETRY, Willian Squires MD Work Phone: Start: 05-82-9819CMQO GLUCOSE BLOODAnusha Barber MD Work Phone: start: 89-43-8862SHJN GLUCOSE Gretchen Barber MD Work Phone: start: 98-94-1948LZBTC OXIMETRY, Willian Squires MD Work Phone: Start: 92-59-7225Chxnf metabolic panel calcium total Valeriano Squires MD Work Phone: Start: 00-22-4615LGF W Auto Differential panel - Blood Valeriano Squires MD Work Phone: Start: 62-84-4729AIHE GLUCOSE BLOODAnusha Barber MD Work Phone: start: 03-70-0857CPQRQ OXIMETRYWillian MD Work Phone: Start: 90-79-6093IHWV GLUCOSE Gretchen Barber MD Work Phone: start: 24-29-4659CFGS GLUCOSE BLOODAnusha Barber MD Work Phone: start: 72-92-7455MFWO GLUCOSE Gretchen Barber MD Work Phone: start: 25-18-2336UKLGL OXIMETRY, Willian Squires MD Work Phone: Start: 69-88-5788Wvw routine ecg w/least 12 lds trcg only w/o i&rMyogesh Squires MD Work Phone: Start: 32-27-7949HDLJ GLUCOSE BLOODAnusha Barber MD Work Phone: start: 79-08-3686Kelvm metabolic panel calcium total Valeriano Squires MD Work Phone: Start: 08-35-9426IXN W Auto Differential panel - Blood Valeriano Squires MD Work Phone: Start: 98-07-6690YPSS GLUCOSE BLOODDasujey Barber MD Work Phone: start: 25-72-0041IBHVJ OXIMETRY, Willian Squires MD Work Phone: Start: 20-24-6966Npoegiowzf examination knee 1/2 views Kaur BURT Work Phone: start: 03-19-2023 End: 90-51-1806IXGFZ OXIMETRY, Willian Squires MD Work Phone: Start: 04-89-2237HTXL GLUCOSE BLOODDasujey Barber MD Work Phone: start: 71-84-3888Bplnz iv surg pathology gross&microscopic examDasujey Barber MD Work Phone: start: 03-19-2023 End: 77-38-6005Zlwmso kne w/expl drg/rmvl fbAnusha Barber MDStart: 03-19-2023 History of operative procedure on kneeS/P left knee surgeryAnusha Barber MD Work Phone: start: 03-19-2023 End: 73-37-1314LL Incision Knee Joint For InfectionDasujey Barber MDStart: 03-19-2023 End: 45-26-2489QZ Revise Knee Joint ReplacementAnusha Barber MDStart: 03-19-2023 End: 76-69-0687Xzpo total knee arthrp w/wo algrft 1 componentDasujey Barber MD Start: 28-65-4381Kqlp count misc body fluids w/differential countAnusha Barber MD Work Phone: start: 03-19-2023 End: 24-62-7649Rhqjwji bacterial any source anaerobic iso&idAnusha Barber MD Work Phone: start: 27-06-5077TSUXNSTJEHTA BODY FLUIDAnusha Barber MD Work Phone: start: 03-19-2023 End: 32-24-6750YBRAMIOY DRAINAGE EXTREMITY LOWERAnusha Barber MD Work Phone: start: 03-19-2023 End: 26-59-4295OAYUXLQP KNEE TOTALAnusha Barber MD Work Phone: start: 17-89-2984Znvvi metabolic panel calcium total Vaelriano Squires MD Work Phone: Start: 02-57-5167GED W Auto Differential panel - Blood Valeriano Squires MD Work Phone: Start: 03-17-2023 End: 40-56-3712Ivgliklztsgxrc aspir&/inj major jt/bursa w/o Vi Barber MD Start: 10-06-2022 End: 42-36-6746Qvyemugwxsei Compression Device - SELF PAYAnusha ZIMMERMANtart: 42-31-7696PEPM GLUCOSE Gretchen Barber MD Work Phone: start: 25-24-9045NTQZ GLUCOSE Gretchen Barber MD Work Phone: start: 26-62-5617INRU GLUCOSE Gretchen Barber MD Work Phone: start: 96-84-3119ZVFL GLUCOSE Gretchen Barber MD Work Phone: start: 85-31-0773ZHQRV OXIMETRY, CONTINUOUSDavid A Pineda DO Work Phone: Start: 32-64-8156YXNIK OXIMETRY, CONTINUOUSDavid A Pineda DO Work Phone: Start: 71-77-1456MYIC GLUCOSE Gretchen Barber MD Work Phone: start: 71-96-5137VFYM GLUCOSE Gretchen Barber MD Work Phone: start: 25-92-6369LYHY GLUCOSE BLOODAnusha Barber MD Work Phone: start: 95-07-8150SCUWK OXIMETRY, CONTINUOUSDavid A Pineda DO Work Phone: Start: 88-25-3914Ivqdm metabolic panel calcium total Doroteo Pineda DO Work Phone: Start: 07-56-7611DYZH GLUCOSE Gretchen Barber MD Work Phone: start: 38-84-6839KBDJ GLUCOSE Gretchen Barber MD Work Phone: start: 47-17-8696WBJGH OXIMETRY, CONTINUOUSDavid A Pineda DO Work Phone: Start: 18-13-2422RCCF GLUCOSE Gretchen Barber MD Work Phone: start: 69-00-6615FLMM GLUCOSE BLOODAnusha Barber MD Work Phone: start: 34-05-6636LIXOU OXIMETRY, CONTINUOUSDavid A Pineda DO Work Phone: Start: 14-01-0528GOBR GLUCOSE BLOODAnusha Barber MD Work Phone: start: 83-13-9038Kqyfs metabolic panel calcium total Doroteo Pineda DO Work Phone: Start: 97-25-0422UBPQ GLUCOSE Gretchen Barber MD Work Phone: start: 54-73-4642QWUSM OXIMETRY, CONTINUOUSDavid A Pineda DO Work Phone: Start: 16-74-2974AOKQ GLUCOSE BLOODAnusha Barber MD Work Phone: start: 76-01-6599SYMRB OXIMETRY, CONTINUOUSDavid A Pineda DO Work Phone: Start: 10-02-2022 End: 57-47-4667CL Revise Knee Joint ReplacementAnusha ZIMMERMANtart: 10-02-2022 End: 61-72-5908Zbso total knee arthrp w/wo algrft 1 componentDasujey Barber MD Start: 55-92-0681JUNX GLUCOSE BLOODAnusha Barber MD Work Phone: start: 44-29-3599Nncyr iv surg pathology gross&microscopic examAnusha Barber MD Work Phone: start: 82-70-6299Rkij count misc body fluids w/differential countAnusha Barber MD Work Phone: start: 10-02-2022 End: 96-48-3748Gfxjvdq bacterial any source anaerobic iso&idDasujey Barber MD Work Phone: start: 60-98-2974JCRFAONPCMSQ BODY FLUIDAnusha Barber MD Work Phone: start: 10-02-2022 End: 02-57-8676IQQKECBS KNEE TOTALAnusha Barber MD Work Phone: start: 71-05-9700OFTT GLUCOSE BLOODAnusha Barber MD Work Phone: start: 56-66-7919Kmfy-cov-2 detection by dna/rnaAnusha Barber MD Work Phone: start: 09-26-2022 End: 59-19-0510Gewuyazr therapy evaluation low complex 20 minsAnusha Barber MD Start: 09-26-2022 End: 80-08-1396Xorxvdvmh actvity direct pt contact each 15 Sebas Barber MD Start: 09-03-2022 End: 37-08-2279Iefda hip unilateral with pelvis 2-3 viewsAnusha Barber MDStart: 07-09-2022 End: 36-37-9170Hbocdiowvccxbv aspir&/inj major jt/bursa w/o Vi Barber MD Start: 07-09-2022 End: 62-19-4327Kayzfzlhsiumd acet inj NOSAnusha Barber MDStart: 05-12-2022 End: 85-47-5034Kkodxmpyscxlqk aspir&/inj major jt/bursa w/o Vi Barber MD Start: 05-12-2022 End: 84-94-0847Aybsglwhmy examination knee 3 viewsAnusha Barber MDStart: 83-06-6967AqkuwmnkpbfehdceUhehu: 66-66-2759Vhqtj colonoscopyKaitlin E Schwerer Work Phone: AppendectomyKaitlin E Schwerer Work Phone: Arthroplasty of kneeKaitlin E Schwerer Work Phone: Comment on above:total bilateral; section Elda E Schwerer Work Phone: Esophagogastrostomy, antesternal or antethoracic Elda E Schwerer Work Phone: Operative procedure on footKaitlin E Schwerer Work Phone: Comment on above:tendonitis;Tonsillectomy and adenoidectomyKaitlin E Schwerer Work Phone: Urine cultureDO Elda Schwerer Work Phone: Plan of Treatment DateCare ActivityDetailAuthorStart: 22-41-7141GXV VACCINE (1 - 1-dose 75+ series)RSV VACCINE (1 - 1-dose 75+ series)[facility]: 54-55-4672DEU test (Diabetes, CKD 3-4, OR last GFR 15-59)GFR test (Diabetes, CKD 3-4, OR last GFR 15-59)[facility] HospitalStart: 63-74-3164Abeiodylg vaccinationINFLUENZA VACCINE (#1)[facility]: 04-11-2025 Bacteria identified in Urine by CultureUrine St. [facility] Hospitaltart: 50-53-4024Lfrhj cultureThe Christ Hospitaltart: 03-17-2025 End: 12-68-2877Kloojnl encounter procedureNOMS ENT [facility]: 03-14-2025 End: 51-40-5195Nruzwhu encounter iefmotblg51/27/2025 3:00 PM EDT Office Visit [facility] [address] [place], [id number] ConstantinoDaphney S, AUD [address] [facility] [place] [address] [facility] BENITEZCT AUDIOLOGYStart: 01-18-2025 End: 36-47-5855Gkqoxkz encounter zfrgyaioo76/02/2025 10:20 AM EDT Office Visit [facility] [address] [facility] [address] [place] [id number] Leah Barrera MD [address] [facility] [address] [place], [place] [id number] ArrivedNOMS CI ENTComment on above:ArrivedStart: 62-87-4873Uiefuu Wellness Visit (Medicare Advantage)Annual Wellness Visit (Medicare Advantage)Bon Sheyla Brainjuicercori [facility] SystemStart: 86-60-0774TFAIZ-19 Vaccine ( season)COVID-19 Vaccine ( season)Bon Sheyla Brainjuicercori [facility] Start: 62-73-5595MessjMarisol Padroniance [facility] Work Phone: Start: 05-25-2024 reactive protein [Mass/volume] in Serum or PlasmaC-Reactive Protein ([id number]), Added on: Zrf-97-4017MpfbyBcrcddsh of [place] YorkStart: 30-64-6739Hyqoj Risk AssessmentFalls Risk AssessmentGeisinger Encompass Health Rehabilitation HospitalStart: 33-44-2635Efsbhnvdyxgk/CHF/CAD Annual BMP Blood Test Hypertension/CHF/CAD Annual BMP Blood TestTrinRiddle HospitalStart: 90-04-7595Djvlt Risk AssessmentFalls Risk AssessmentGeisinger Encompass Health Rehabilitation HospitalStart: 10-04-2023 Hypertension/CHF/CAD Annual BMP Blood TestHypertension/CHF/CAD Annual BMP Blood TestTrinRiddle HospitalStart: 27-29-2260JIW, Provider: Luis Castanon, Status: Pen, Time: 11:20 AMFUV, Provider: Luis Castanon, Status: Pen, Time: 11:20 AMMP-[facility]-[place] [address] DO Work Phone: Start: 06-29-2023 reactive protein [Mass/volume] in Serum or PlasmaC-Reactive Protein, Quant ([id number]), Ordered on: [facility] [place]Start: 92-81-5758Koyympekgyv sedimentation rate Sedimentation Rate-Westergren ([id number]), Ordered on: Kqp-87-3055OleaeZccwkmca of [place] YorkStart: 69-22-1184PQI With Differential/Platelet ([id number]), Ordered on: Zti-21-9262VoossFpdxvpyz of [place] YorkStart: 72-59-8888Hxsilqkhfo A1c measurement Diabetes: Hemoglobin A7OFSEUNortheast Regional Medical CenterStart: 66-88-9908Xwttructao of knee, Left (), Added on: Ive-88-9281ItdijTavszlwy of [place]Start: 24-76-5588YQV, Provider: Luis Castanon, Status: Pen, Time: 2:30 PMMP-[facility] 250 DO Work Phone: Start: 10-77-1138Ssidzqwpgg depression screening assessmentDepression ScreeningTrinRiddle HospitalStart: 45-38-1374Clkvqbvur C screeningHepatitis C ScreeningTrinmain campus medical center HealthStart: 34-98-1343Fattj panel Cholesterol Screening (Lipid Panel)[facility] HospitalStart: 12-05-2022Medicare Annual Wellness VisitMedicare Annual Wellness VisitTrinRiddle HospitalStart: 09-29-7586Ycjosemig for malignant neoplasm of breastBreast Cancer Screening [facility] HospitalStart: 50-49-9760Qpplogsqp for malignant neoplasm of colon Colorectal Cancer Screening: ColonoscopyTrinRiddle HospitalStart: 27-53-7095Pnkukxveo for osteoporosisOsteoporosis Screening (Bone Density Screening)[facility] Start: 87-55-3879Sxauuu Influencers of Health ScreeningSocial Influencers of Health ScreeningTrinRiddle HospitalStart: 25-20-9088Ylyzvhg referralReferrals: DME LTKA RevOrthoAlliance [facility] CenterStart: 05-27-2022 End: 30-22-8267Fpzfsuynu department patient visitDeparted EmergencyDoctors Hospital Ctr-Emergency RoomStart: 06-28-5296UjddjTictdjvn [facility]: 93-74-4611NxsejsdeuDoctors Hospital Ctr Work Phone: Start: 65-53-0273KpjzhmeylDoctors Hospital Ctr Work Phone: Start: 11-76-6646NFMDF-19 Vaccine (3 - Booster for Pfizer series)COVID-19 Vaccine (3 - Booster for Pfizer series)[facility] Start: 63-11-5639XYMQY-19 Vaccine (3 - Pfizer series)COVID-19 Vaccine (3 - Pfizer series)[facility] HospitalStart: 77-22-3917Utowjrrsmhq Syncytial Virus (RSV) or age 60 yrs+ (1 - Risk 60-74 years 1-dose series)Respiratory Syncytial Virus (RSV) or age 60 yrs+ (1 - Risk 60-74 years 1-dose series)[facility]: 17-85-3906Nbxqbwcyw for osteoporosisDEXA (modify frequency per FRAX score)[facility]: 2005 Shingles vaccine (1 of 2)Shingles vaccine (1 of 2)[facility]: 13-79-4374Oepzae vaccine hzv live for subcutaneous useZOSTER (SHINGLES) VACCINE (1 of 2)[facility]: 51-17-1258Ffomlh Vaccines (1 of 2) Zoster Vaccines (1 of 2)[facility]: 81-93-3207Juaxhlcse for malignant neoplasm of colonR[facility]ide [facility]: 72-08-2126Tkaom panelLIPID SCREENINGChillicothe Hospitaltart: 30-57-2543Jazdzdowl for malignant neoplasm of breastBon [facility]: 41-81-0838Occybuhhi for malignant neoplasm of cervixCERVICAL CANCER SCREENING DISCUSSIONOSCrystal Clinic Orthopedic Centertart: 75-18-1330XFxO,Tdap,and Td Vaccines (1 - Tdap)DTaP,Tdap,and Td Vaccines (1 - Tdap)[facility]: 57-85-8081YNyL/Tdap/Td vaccine (1 - Tdap)DTaP/Tdap/Td vaccine (1 - Tdap)[facility]: 1974 Third diphtheria, tetanus and acellular pertussis (DTaP) vaccinationTDAP (ADULT) [facility]: 06-08-4149Tzfrq screening for proteinDiabetes: Urine Protein ScreeningMetropolitan Saint [facility]: 80-80-2697Ckjhmcnz screening Diabetic retinal examR[facility]ide Regional Medical Center: 49-54-6204Uwgaqfsmv C screeningHepatitis C screenRiverside Regional Medical [facility]: 91-28-2897Xsjwv screening for proteinDiabetic Alb to Cr ratio (uACR) testRiverside Regional Medical Center: 60-92-4362Vnzekzdmxb ScreenDepression ScreenRiverside Regional Medical Center: 24-61-0382Ffuwxsye foot examinationDiabetic foot examRiverside Regional Medical [facility]: 28-35-6522Nizldvha screeningDiabetes: Retinopathy Screening [facility] HealthcareStart: 71-20-4364Qavezmpcdb A1c qtjfhtnzvwgL5G test (Diabetic or Prediabetic)[facility] HospitalStart: 15-30-8721Zghic panelLipidsSouthampton Memorial HospitalStart: 19-64-6198Cuiyogwdz C screeningHEPATITIS C VIRUS SCREENINGOSCrystal Clinic Orthopedic Centertart: 1955Medicare Annual Wellness (AWV)Medicare Annual Wellness (AWV)[facility] HealthcareStart: 71-78-5584Jfrnyajsc for malignant neoplasm of colonNOMS HealthcareStart: 63-72-8048Urqqrezuz for osteoporosisDEXA SCAN DISCUSSIONOSCrystal Clinic Orthopedic Centertart: 1955 Tetanus vaccinationTETANUSWestern Reserve HospitalComprehensive metabolic 2000 panel - Serum or [facility] Work Phone: Crystals, Body FluidCrystals, Body Fluid Lab Routine 11/14/2024 10:22 AM [facility] Work Phone: Culture, Anaerobic and AerobicCulture, Anaerobic and Aerobic Microbiology Routine 11/14/2024 10:22 AM [facility] Ferritin [Mass/volume] in Serum or [facility] Work Phone: Fungus identified in Skin by CultureTrinity Health Work Phone: Fungus identified in Skin by CultureTrinity Health Work Phone: Mycobacterium sp identified in Unspecified specimen by Organism specific cultureTrinity HealthMycobacterium sp identified in Unspecified specimen by Organism specific cultureTrinity HealthPatient Education Urinary Tract Infection, Adult EDDoctors Hospital Ctr Work Phone: Patient [facility] Work Phone: Renal function 2000 panel - Serum or [facility] Immunizations Immunization DateImmunizationNotesCare XhvscqltUmkvlueq85-00-6985hycbccefz virus vaccine, unspecified formulationVlad Joel MD Work Phone: [facility]10-20-2022Fluad Quadrivalent 0.5 ML Intramuscular Prefilled SyringeDaniel A Sosa Work Phone: [phone]-[place]clbsK[place] [address] DO Work Phone: [phone]-76 Vaccine Pfizer - Documentation Purposes OnlyChristopher Agueda Other [facility] HospitalComment on above: Series:41-50-8176CHUJD Vaccine Pfizer - Documentation Purposes Only Christopher Agueda Other [facility] HospitalComment on above: Series:65-64-9735norrcysol, injectable, quadrivalent, preservative freeDaniel A Sosa Work Phone: [phone]-MtcqhKyle [place]ille [address] DO Work Phone: [phone]d virus vaccine, unspecified formulationKaitlin E Schwerer Work Phone: [phone]-RbxspKyle [place]ille [address] DO Work Phone: [phone]cxodtwaj polysaccharide vaccine, 23 valentChristopher Agueda Other [facility]10-19-2020Seasonal trivalent influenza vaccine, adjuvanted, preservative freeKaitlin E Schwerer Work Phone: [phone]-OacejK[place] [address] DO Work Phone: [phone]pnnz, injectable, Madin Fowler Canine Kidney, preservative free, quadrivalentKaitlin E Schwerer Work Phone: [phone]-KdhnnGlencoe [facility] 250 DO Work Phone: [phone] [phone]sxhlfvyb polysaccharide vaccine, 23 valentKaitlin E Schwerer Work Phone: [phone]-GwjlhGlencoe Regional Health Services 250 DO Work Phone: [phone]wful virus vaccine, unspecified formulationKaitlin E Schwerer Work Phone: [phone]-QzbmqSt. [facility]s [facility] 250 DO Work Phone: [phone], seasonal, injectableDaniel A Sosa Work Phone: [phone]-DekviSt. Elizabeths Medical Center 250 DO Work Phone: [phone])[phone]oixpxesgjoa polysaccharide vaccine, 23 valentChristopher Agueda Other [facility]10-01-2018Influenza, injectable, Madin Fowler Canine Kidney, quadrivalent with preservativeKaitlin E Schwerer Work Phone: [phone]-ViloiSt. [facility]s Medical Center 250 DO Work Phone: [phone]pw conjugate vaccine, 13 valent Christopher Agueda Other [facility]11-02-2017influenza, injectable, quadrivalent, preservative freeChristopher Agueda Other [facility]03-01-2012 pneumococcal polysaccharide vaccine, 23 valentChristopher Agueda Other [facility] Payers DatePayer CategoryPayerPolicy [id number] (Managed Care)MEDICARE [employer] HMO [id number] 2018Medicaid .[id number] 2008Medicare1960Medicaid [id number] [id number] [id number] [id number] 2.16840.1.930482.3.57[id number] 2.16840.1.594897.3.57[id number] 2.16840.1.433729.3.57[id number] 2.840.1.305886.3.57[id number] 2.840.1.728927.3.57[id number] 2.16840.1.710234.3.57[id number] 2.16840.1.072886.3.57[id number] 2.16840.1.329190.3.57[id number] 2.16840.1.839700.3.57[id number] 2.16840.1.197051.3.57[id number] 2.16840.1.213923.3.57[id number] 2.16840.1.677045.3.57[id number] 2.16.840.1.737567.3.57[id number] 2.16.840.1.628812.3.579.[id number] 2.16.840.1.371481.3.57[id number] 2.16.840.1.678037.3.57[id number] 2.16.840.1.124463.3.57[id number] 2.16.840.1.832423.3.57[id number] 2.16840.1.248476.3.57[id number] 2.16.840.1.006049.3.57[id number] 2.16.840.1.308969.3.57[id number] 2.16.840.1.884674.3.57[id number] 2.16.840.1.918702.3.57[id number] 2.16.840.1.061262.3.57[id number] 2.16.840.1.232364.3.57[id number] 2.16.840.1.505838.3.57[id number] 2.16.840.1.618461.3.579.2.799643-56-5672Beoouzm2252772 2.16.840.1.222073.3.579.2.310532-87-9269Uwvhslm1065472 2.16.840.1.024978.3.579.[id number] 2.16.840.1.701008.3.57[id number] 2.16.840.1.140391.3.579.2.624[id number] 2.16.0.1.768804.3.579.[id number] 2.16.0.1.889199.3.57[id number] 2..0.1.851602.3.57[id number] 2..0.1.70[id number] 2..0.1.765523.19Private Health InsuranceUnst. luke's hospital Healthcare Dual Compl [id number] Pay [id number] Social History DateTypeDetailFacilityStart: 01-05-2025 End: 95-61-3680Rq illicit drug useNo illicit drug useSouthampton Memorial Hospital Comment on above:2 cups of coffee daily;Rarely;high school smoker;Rarely 1-2 times yearly;Start: 01-05-2025 End: 98-63-9051Nwp Assigned At BirthSouthampton Memorial HospitalStart: 05-27-2022 End: 35-28-4859Lwmhmil smoking status NHISEx-smoker (finding)[facility]: 89-06-4275Xbm Assigned At BirthFePaulding County HospitalHistory of tobacco useCurrent smokerTrinity HealthHistory of tobacco useCigarette SmokerTrinity HealthStart: 10-02-2022 End: 24-04-9708Enlznvp intakeLifetime non-drinker (finding)[facility]Start: 71-53-0926Dtj Assigned At BirthNot on fileTrinity HealthStart: 09-22-2022 End: 75-92-3404Cctzwzwv to SARS-CoV-2 (event)Not sureTrinity HealthStart: 03-19-2023 End: 29-38-0639Tcmiclo use and exposureSmokeless tobacco non-userTrinity Health Start: 03-23-2024 End: 41-48-9742Hkdvuvi smoking status NHISUnknown if ever smokedOrthoAlliance of [place]Start: 30-04-2915Szesaap intakeAlcohol Use DetailsOrthoAlliance of [place] Start: 68-61-7914Eekxrw OrientationStraight or heterosexualOrthoAlliance of [place] Start: 71-91-1423Qyzvhc OrientationChoose not to discloseOrthoAlliance of [place] Start: 10-27-2024 End: 76-75-1202YqbKmsdey (finding)[facility] Hospitaltart: 02-03-2024 End: 98-08-9388Jghmxng smoking status NHISNever smoked tobaccoBon TerraPower HealthStart: 02-03-2024 End: 87-46-9736Odyiyfwuc beverage intakeCurrent drinker of alcohol (finding)WolfGISHas the electric, gas, oil, or water company threatened to shut off services in your home in past 12MoNoBon TerraPower HealthHow often to you have a drink containing alcohol?Monthly or lessBon Applyful How many standard drinks containing alcohol do you have on a typical day?1 or 2 [facility] HealthHow often do you have 6 or more drinks on 1 occasion? NeverBon Applyful(I/We) worried whether (my/our) food would run out before (I/we) got money to buy more.Never trueSouthampton Memorial HospitalStart: 13-12-3130Cg the past 12 months, has lack of transportation kept you from medical appointments or from getting medications?NoSouthampton Memorial Hospital Start: 83-23-5846Uahrjjq CommentOcassionallySouthampton Memorial HospitalStart: 87-44-0163Wwasqhd CommentOccasionllAlvin J. Siteman [facility] Medical Equipment Procedure CodeEquipment CodeEquipment Original TextEquipment IdentifierDatesCps Artcsurf 16mm Lt 6-9 Ef - Sn/A - [id number](21)N/A, [id number] FDAStart: 10-02-2022 Asf Cps 18mm Ve L 6-9 Ef - Sn/A - [id number]/SN/A, [id number] FDAStart: 03-19-2023 Functional Status DateAssessmentResultFacilChildren's Hospital of [facility] Clinical Notes 07-10-2021 to 07-13-2025 Note Date & [id number] NoteProgress Note-Physician Patient: RENUKA PADRON Age: 69 years Sex: Female : 1955 Associated Diagnoses: None Author: Caleb BRYANT, Colt Rosenberg Postoperative Information Postoperative disposition: Postoperative disposition: To PACU. Optimetrix number: Optimetrix number [id number]. Anesthetic utilized: General. Health Status Allergies: Allergic Reactions (Selected) Severity Not Documented Aspirin- Unknown. Latex- Unknown. Penicillins- Unknown. Sulfa drugs- Unknown. Tape- Itching. Physical Examination Vital Signs 07/13/2025 9:10 EDT SpO2 98 % 07/13/2025 9:10 EDT Heart Rate Monitored 59 bpm LOW 07/13/2025 9:10 EDT Respiratory Rate Monitored 11 br/min 07/13/2025 9:10 EDT Systolic Blood Pressure 128 mmHg Diastolic Blood Pressure 63 mmHg Blood Pressure Location Left arm 07/13/2025 9:03 EDT Respiratory Rate Monitored 12 br/min SpO2 100 % 07/13/2025 9:03 EDT Systolic Blood Pressure 126 mmHg Diastolic Blood Pressure 53 mmHg LOW 07/13/2025 9:03 EDT Temperature Temporal Artery 36.2 DegC LOW Heart Rate Monitored 61 bpm Blood Pressure Location Left arm Pain Assessment: Controlled. General: Awake, Appropriate. Respiratory: Adequate air exchange. Cardiovascular: Stable. Neurological Assessment Anesthetic outcome No anesthetic complications noted. Adequate pain relief. no nausea. Review / Management Condition: Stable. Plan Transfer/Discharge: Transfer/Discharge Discharge when meets criteria.[facility] CenterComment on above:Result Comment: Electronically Signed By: Caleb BRYANT, Colt Rosenberg\.br\Date and Time Signed: 07/13/25 09:46 [id number] Note Patient Education - Text Gastroenterology Esophageal Dilatation Esophageal dilatation, also called esophageal dilation, is a procedure to widen or open a blocked or narrowed part of the esophagus. The esophagus is the part of the body that moves food and liquid from the mouth to the stomach. You may need this procedure if: ??? You have a buildup of scar tissue in your esophagus that makes it difficult, painful, or impossible to swallow. This can be caused by gastroesophageal reflux disease (GERD). ??? You have cancer of the esophagus. ??? There is a problem with how food moves through your esophagus. In some cases, you may need this procedure repeated at a later time to dilate the esophagus gradually. Tell a health care provider about: ??? Any allergies you have. ??? All medicines you are taking, including vitamins, herbs, eye drops, creams, and dxdw-ukg-gyphubu medicines. ??? Any problems you or family members have had with anesthetic medicines. ??? Any blood disorders you have. ??? Any surgeries you have had. ??? Any medical conditions you have. ??? Any antibiotic medicines you are required to take before dental procedures. ??? Whether you are or may be . What are the risks? Generally, this is a safe procedure. However, problems may occur, including: ??? Bleeding due to a tear in the lining of the esophagus. ??? A hole, or perforation, in the esophagus. What happens before the procedure? Ask your health care provider about: ? Changing or stopping your regular medicines. This is especially important if you are taking diabetes medicines or blood thinners. ? Taking medicines such as aspirin and ibuprofen. These medicines can thin your blood. Do not take these medicines unless your health care provider tells you to take them. ? Taking oiix-ghw-oojqker medicines, vitamins, herbs, and supplements. ??? Follow instructions from your health care provider about eating or drinking restrictions. ??? Plan to have a responsible adult take you home from the hospital or clinic. ??? Plan to have a responsible adult care for you for the time you are told after you leave the hospital or clinic. This is important. What happens during the procedure? You may be given a medicine to help you relax (sedative). ??? A numbing medicine may be sprayed into the back of your throat, or you may gargle the medicine. ??? Your health care provider may perform the [...] What can I expect after the procedure? Your blood pressure, heart rate, breathing rate, and blood oxygen level will be monitored untilyou leave the hospital or clinic. ??? Your throat may feel slightly sore and numb. This will get better over time. ??? You will not be allowed to eat or drink until your throat is no longer numb. ??? When you are able to drink, urinate, and sit on the edge of the bed without nausea or dizziness, you may be able to return home. Follow these instructions at home: ??? Take wnzg-xeh-yibzhlu and prescription medicines only as told by your health care provider. ??? If you were given a sedative during the procedure, it can affect you for several hours. Do not drive or operate machinery until your health care provider says that it is safe. ??? Plan to have a responsible adult care for you for the time you are told. This is important. ??? Follow instructions from your health care provider about any eating or drinking restrictions. ??? Do not use any products that contain nicotine or tobacco, such as cigarettes, e-cigarettes, andchewing tobacco. If you need help quitting, ask your health care provider. ??? Keep all follow-up visits. This is important. Contact a health care provider if: ??? You have a fever. ??? You have pain that is not relieved by medicine. Get help right away if: ??? You have chest pain. ??? You have trouble breathing. ??? You have trouble swallowing. ??? You vomit blood. ??? You have black, tarry, or bloody stools. These symptoms may represent a serious problem that is an emergency. Do not wait to see if the symptoms will go away. Get medical help right away. Call your local emergency services (911 in the [place] Do not drive yourself to the hospital. Summary ??? Esophageal dilatation, also called esophageal dilation, is a procedure to widen or open a blocked or narrowed part of the esophagus. ??? Plan to have a responsible (more content not included)...[facility]09-[facility] NoteEndoscopic Procedure Report - Other Patient: RENUKA PADRON Age: 69 years Sex: Female : 1955 Associated Diagnoses: None Author: Glen Bejarano MD Pre-Procedure Procedure Date 07/13/2025 08:59:00 . Procedure Type: Esophagogastroduodenoscopy with Dilation with Delcid. Procedure provider Performed by Glen Bejarano MD. Current history and physical Documented on chart. Informed Consent After discussing the rationale, risks and benefits, and alternatives to this procedure, the patient provided signed consent for the procedure. Pre-procedure diagnosis: Dysphagia . Medications Anticoagulant/antiplatelet None. ASA Classification: Class III. . Monitoring: See anesthesia record. . Anticoagulation use: Procedure The procedure was performed in the hospital. See anesthesia record for sedation given during procedure. The patient was positioned starting in the left lateral decubitus position and with safety measures. Endoscope type used was an adult- size, introduced orally, advanced to jejunum. No difficulty was encountered during the procedure. Views were excellent. The patient tolerated the procedure well. Findings 1. Esophageal landmarks identified, normal examined esophagus, empiric dilation with Delcid 56 [place] was done, no resistance, post dilation there was no mucosal disruption or wall defect 2. Evidence of surgery in the stomach with Joellen-en-Y anatomy, healthy looking except for mild inflammation at the anastomosis, nonspecific, no ulcers or erosions noted 3. Normal examined efferent jejunal loop Images Procedure images: [id number]__[id number].jpg [id number]_hd_video_[id number]__[id number].jpg [id number]_hd_video_[id number]__[id number].jpg [id number]_hd_video_[id number]__[id number].jpg [id number]_hd_video_2024__[id number].jpg [id number]_hd_video_[id number]__[id number].jpg . Post-Procedure Complications: none. Estimated blood loss: none. Specimens: None. Devices/ implants: none left in place. Impression and Plan 1. Esophageal landmarks identified, normal examined esophagus, empiric dilation with Delcid 56 [place] was done, no resistance, post dilation there was no mucosal disruption or wall defect 2. Evidence of surgery in the stomach with Joellen-en-Y anatomy, healthy looking except for mild inflammation at the anastomosis, nonspecific, no ulcers or erosions noted 3. Normal examined efferent jejunal loop Recommendations: -Resume previous diet -Resume home medications -Follow-up in GI clinic as neededUniversity [facility]als [facility] CenterComment on above: Result Comment: Electronically Signed By: Darci BRYANT, Glen Ta\.br\Date and Time Signed: 07/13/25 09:00 EDTOther Comment: Missing Attachment - attachment storage system not supported [id number] Can be viewed in source system Missing Attachment - attachment storage system not supported [id number] Can be viewed in source systemMissing Attachment - attachment storage system not supported [id number] Can be viewed in source systemMissing Attachment - attachment storage system not supported [id number] Can be viewed in source systemMissing Attachment - attachment storage system not supported [id number] Can be viewed in source systemMissing Attachment - attachment storage system not supported [id number] Can be viewed in source [phone] NoteProgress Note-Physician Patient: RENUKA PADRON Age: 69 years Sex: Female : 1955 Associated Diagnoses: None Author: Colt Ellis MD Preoperative Information Anesthesia Preop Info: Time patient last ate or drank 07/13/2025 00:00:00. Anesthesia history: Patient history: slow HR and slow to wake. Family history+: None. Informed consent: Signed by patient. Including risks, benefits, and alternatives related to the: Anesthetic plan. Re-evaluation prior to induction: Colt Ellis MD. Review of Systems Eye Ear/Nose/Mouth/Throat Respiratory: No shortness of breath, No cough, No wheezing. Cardiovascular: No chest pain. Gastrointestinal: No heartburn. Musculoskeletal Neurologic Health Status Allergies: Allergic Reactions (Selected) Severity Not Documented Aspirin- Unknown. Latex- Unknown. Penicillins- Unknown. Sulfa drugs- Unknown. Tape- Itching., Allergies (5) Active Severity Reaction Latex UNKNOWN penicillins UNKNOWN sulfa drugs UNKNOWN aspirin Unknown Tape Itching Current medications: (Selected) Inpatient Medications Ordered Sodium Chloride 0.9% IV Trang 1000 mL 1,000 mL: 1,000 mL, IV, 20 mL/hr, Routine, Start date 07/13/25 6:37:00 EDT, 50 hour(s), Total volume (mL): 1,000, 96 kg, 2.07, m2 Prescriptions Prescribed Carafate 1 gram Tab: 1 gram = 1 tab(s), Oral, QID, # 120 tab(s), Refills(s) 0, Pharmacy: [id number] Documented Medications Documented Fiber Tabs: 1 tab, Oral, Daily, Refills(s) 0, Prophylaxis Symbicort 160/4.5 inhalation aerosol with adapter: Refill(s) 0, 10 gm, 0 Refill(s), INHALE 2 PUFFS TWICE A DAY Vitamin D3: Oral, BID, Refills(s) 0, Prophylaxis Vitamin D3: Oral, Refills(s) 0, Prophylaxis acetaminophen-oxycodone 325 mg-5 mg oral tablet: 1 tab(s), Oral, q6hr as needed for pain, Refill(s)0 albuterol HFA 90 mcg/inh MDI: Refill(s) 0, Respiratory (Inhalation), 0 Refill(s) alendronate 5 mg oral tablet: 1, Oral, Daily, osteoporosis, Refills(s) 0, Other (see comment) allopurinol: Oral, Daily, Refills(s) 0, Gout pain bumetanide 1 mg Tab: 180 EA, 0 Refill(s), TAKE ONE TABLET BY MOUTH TWICE A DAY, Refills(s) 0 cyclobenzaprine: 10 Unknown, Oral, Refills(s) 0 duloxetine 30 mg oral delayed release capsule: Oral, Daily, 1 Unknown, 0 Refill(s), Refills(s) 0, Depression ferrous sulfate: 2,000 mg, Oral, BID, Refills(s) 0, Prophylaxis fluticasone 0.05 mg/inh Nasal [place]: 2 spray(s), Nasal, Daily, Refill(s) 0, Allergy symptoms gabapentin 300 mg Cap: 300 mg = 1 cap(s), Oral, TID, Oral, Refills(s) 0, Neuropathy hydrOXYzine: 10 mg, Oral, QID, PRN as needed for anxiety, Refills(s) 0 magnesium gluconate 500 mg oral tablet: 500 mg = 1 tab(s), Oral, Daily, Refills(s) 0, Prophylaxis midodrine 2.5 mg oral tablet: BID, 2.5 Unknown, oral, 0 Refill(s), Take 1 tablet (2.5 mg total) by mouth 2 (two) times a day., Refills(s) 0 ondansetron 4 mg Tab: Oral, Refills(s) 0, Nausea pantoprazole: 40 mg, Oral, BID, Refills(s) 0, Control of stomach acid phentermine 37.5 mg Tab: 37.5 mg = 1 tab(s), Oral, Refills(s) 0, Other (see comment) temazepam: 30 mg, Oral, Once a day [...] duloxetine 30 mg oral delayed release capsule , Oral, Daily ferrous sulfate 2,000 mg, Oral, BID Fiber Tabs 1 tab, Oral, Daily fluticasone 0.05 mg/inh Nasal [place] 2 spray(s), Nasal, Daily gabapentin 300 mg Cap 300 mg = 1 cap(s), Oral, TID hydrOXYzine 10 mg, PRN, Oral, QID magnesium gluconate 500 mg oral tablet 500 mg = 1 tab(s), Oral, Daily midodrine 2.5 mg oral tablet , BID ondansetron 4 mg Tab pantoprazole 40 mg, Oral, BID phentermine 37.5 mg Tab 37.5 mg = 1 tab(s), Oral Symbicort 160/4.5 inhalation aerosol with adapter temazepam 30 mg, Oral, Once a day (at bedtime) tizanidine 4 mg, PRN, Oral, BID topiramate 25 mg Tab Vitamin D3 , Oral, BID Vitamin D3 , Medications (1) Active Scheduled: (0) Continuous: (1) Sodium Chloride 0.9% 1,000 mL 1,000 mL, IV, 20 mL/hr PRN: (0) Problem list: All Problems CHF (congestive heart failure) / SNOMED CT 17093964 / Confirmed COPD (chronic obstructive pulmonary disease) / SNOMED CT 70395693 / Confirmed Hypertension / SNOMED CT 0459446734 / Confirmed Kidney failure / SNOMED CT 82676576 / Confirmed, Active Problems (4) CHF (congestive heart failure) COPD (chronic obstructive pulmonary disease) Hypertension Kidney failure Histories Past Medical History: No active or resolved past medical history items (more content not included)... [facility] CenterComment on above:Result Comment: Electronically Signed By: Caleb BRYANT, Colt Self.br\Date and Time Signed: 07/13/25 08:56 EDT 07-13-2025 NoteHistory and Physical Patient: RENUKA PADRON Age: 69 years Sex: Female : 1955 Associated Diagnoses: None Author: Glen Bejarano MD Preoperative Information Indication for procedure and diagnosis: Dysphagia Chief Complaint as above Review of Systems All systems reviewed, negative except as mentioned above Health Status Current medications: (Selected) Inpatient Medications Ordered Lactated Ringers IV Trang 1000 mL 1,000 mL: 1,000 mL, IV, 100 mL/hr, Routine, Start date 07/13/25 7:09:00 EDT, 10 hour(s), Total volume (mL): 1,000, 96 kg, 2.07, m2 Sodium Chloride 0.9% IV Trang 1000 mL 1,000 mL: 1,000 mL, IV, 20 mL/hr, Routine, Start date 07/13/25 6:37:00 EDT, 50 hour(s), Total volume (mL): 1,000, 96 kg, 2.07, m2 Prescriptions Prescribed Carafate 1 gram Tab: 1 gram = 1 tab(s), Oral, QID, # 120 tab(s), Refills(s) 0, Pharmacy: [id number] Documented Medications Documented Fiber Tabs: 1 tab, Oral, Daily, Refills(s) 0, Prophylaxis Symbicort 160/4.5 inhalation aerosol with adapter: Refill(s) 0, 10 gm, 0 Refill(s), INHALE 2 PUFFS TWICE A DAY Vitamin D3: Oral, BID, Refills(s) 0, Prophylaxis Vitamin D3: Oral, Refills(s) 0, Prophylaxis acetaminophen-oxycodone 325 mg-5 mg oral tablet: 1 tab(s), Oral, q6hr as needed for pain, Refill(s)0 albuterol HFA 90 mcg/inh MDI: Refill(s) 0, Respiratory (Inhalation), 0 Refill(s) alendronate 5 mg oral tablet: 1, Oral, Daily, osteoporosis, Refills(s) 0, Other (see comment) allopurinol: Oral, Daily, Refills(s) 0, Gout pain bumetanide 1 mg Tab: 180 EA, 0 Refill(s), TAKE ONE TABLET BY MOUTH TWICE A DAY, Refills(s) 0 cyclobenzaprine: 10 Unknown, Oral, Refills(s) 0 duloxetine 30 mg oral delayed release capsule: Oral, Daily, 1 Unknown, 0 Refill(s), Refills(s) 0, Depression ferrous sulfate: 2,000 mg, Oral, BID, Refills(s) 0, Prophylaxis fluticasone 0.05 mg/inh Nasal [place]: 2 spray(s), Nasal, Daily, Refill(s) 0, Allergy symptoms gabapentin 300 mg Cap: 300 mg = 1 cap(s), Oral, TID, Oral, Refills(s) 0, Neuropathy hydrOXYzine: 10 mg, Oral, QID, PRN as needed for anxiety, Refills(s) 0 magnesium gluconate 500 mg oral tablet: 500 mg = 1 tab(s), Oral, Daily, Refills(s) 0, Prophylaxis midodrine 2.5 mg oral tablet: BID, 2.5 Unknown, oral, 0 Refill(s), Take 1 tablet (2.5 mg total) by mouth 2 (two) times a day., Refills(s) 0 ondansetron 4 mg Tab: Oral, Refills(s) 0, Nausea pantoprazole: 40 mg, Oral, BID, Refills(s) 0, Control of stomach acid phentermine 37.5 mg Tab: 37.5 mg = 1 tab(s), Oral, Refills(s) 0, Other (see comment) temazepam: 30 mg, Oral, Once a day [...] duloxetine 30 mg oral delayed release capsule , Oral, Daily ferrous sulfate 2,000 mg, Oral, BID Fiber Tabs 1 tab, Oral, Daily fluticasone 0.05 mg/inh Nasal [place] 2 spray(s), Nasal, Daily gabapentin 300 mg Cap 300 mg = 1 cap(s), Oral, TID hydrOXYzine 10 mg, PRN, Oral, QID magnesium gluconate 500 mg oral tablet 500 mg = 1 tab(s), Oral, Daily midodrine 2.5 mg oral tablet , BID ondansetron 4 mg Tab pantoprazole 40 mg, Oral, BID phentermine 37.5 mg Tab 37.5 mg = 1 tab(s), Oral Symbicort 160/4.5 inhalation aerosol with adapter temazepam 30 mg, Oral, Once a day (at bedtime) tizanidine 4 mg, PRN, Oral, BID topiramate 25 mg Tab Vitamin D3 , Oral, BID Vitamin D3 Problem list: All Problems CHF (congestive heart failure) / SNOMED CT 17868417 / Confirmed COPD (chronic obstructive pulmonary disease) / SNOMED CT 19619301 / Confirmed Kidney failure / SNOMED CT 46833974 / Confirmed Hypertension / SNOMED CT 3000576345 / Confirmed Histories Past Medical History: No active or resolved past medical history items have been selected or recorded. Family History: Patient was adopted. History is unknown. Procedure history: Colonoscopy ([id number]) on 06/01/2024 at 68 Years. Esophagogastroduodenoscopy ([id number]) on 06/01/2024 at 68 Years. EGD (esophagogastroduodenoscopic) electrohydraulic lithotripsy of bezoar in stomach ([id number]) on06/15/2019 at 63 Years. Colonoscopy ([id number]) on 08/02/2018 at 63 Years. Appendicectomy (303371370). Tonsillectomy (271460791). Gastric bypass (5713775311). Both knees (44620049). Tendonitis of left ankle ([id number]). Caesarean section (52451609). Social History Social & Psychosocial Habits Alcohol 06/13/2025 Risk Assessment: Low Risk Substance Abuse 06/13/2025 Risk Assessment: Denies Substance Abuse Tobacco (more content not included)...[facility] CenterComment on above:Result Comment: Electronically Signed By: Darci BRYANT, Glen Ta\.juanita\Date and Time Signed: 07/13/25 08:54 [id number] History of Present illness Narrative* Leonel Wharton MD - 04/28/2025 12:00 PM EDT Chief complaint: Chief Complaint Patient presents with Left Knee - Pain 69 y.o. female 2007 L TKAand 2021 L TKRevsion (Dr. Barber in [place]). Had a cat scratch infection in 2022 [...] does endorse pain that starts in her lowback and wraps around to her left anterior [...] of films of the affected knee including astanding AP/Lat/PA flexion, and a sunrise view. XR [...] taking antibiotics, which a joint aspiration in 2024 appeared to have aseptic results. Patient was offered referral to [facility] infectious disease for second opinion, which patient is appreciate of. We will also repeat bloodwork today to evaluate for infection. Will consider re- aspiration pending lab results. Leonel Wharton MD Orthopaedic Surgery * Vlad Joel MD - 04/28/2025 12:00 PM EDT The patient was seen and evaluated with the resident at today's visit. I performed all essential elements of the history and physical exam at today's visit. I have confirmed the diagnosis at today's visit. I have determined the plan of care for today's visit. Please refer to the resident's note forfurther details from today's visit. I have reviewed [...] rule that out 1st. Vlad Joel M.D. Editing Intern Chef'S Assistant Adult Reconstructive Surgery Service Department of Orthopaedics [facility] History of Present illness Narrative* Leah Barrera MD - 03/17/2025 11:20 AM EDT Subjective Patient ID: Renuka Padron is a 69 y.o. female who presents for Thyroid Nodule (Follow up ultrasoundTBH 01/24/25 ) and Ear Problem (Audio 03/14/25) Audio shows delfino moderate to severe SNHL and normal tymps. Pt requests referral to Dr Chase. Previously followed by Dr in [place]. US shows a [id number] RT nodule compared to [id number] one year ago. Family History Adopted: Yes [...] 03/17/2023 Atherosclerosis of artery 02/03/2024 Coronary atherosclerosis ([facility]/HCC) 03/03/2013 Cramps of left lower extremity 04/08/2018 [...] to other internal joint prosthesis, initial encounter ([facility]) 03/21/2023 Iron deficiency anemia 02/03/2024 Lingual tonsil hypertrophy 02/03/2024 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 ([facility]) 10/02/2022 LPRD (laryngopharyngeal reflux disease) 02/03/2024 Morbid obesity ([facility]) 03/03/2013 Multinodular goiter ([facility]) 02/03/2024 Obesity, Class III, BMI 40-49.9 (morbid obesity) ([facility]) 06/30/2017 Obstructive sleep apnea syndrome 06/05/2016 Primary osteoarthritis of left hip 02/03/2024 Osteoarthritis of knee 02/03/2024 Pulmonary HTN ([facility]) 07/06/2017 Restrictive lung disease 07/06/2017 Sciatica 02/03/2024 Thrombophlebitis 02/03/2024 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 ([facility]) 02/03/2024 Thrombophlebitis of left leg ([facility]) 02/03/2024 Urinary tract infection 02/03/2024 Abdominal infection ([facility]) 02/03/2024 Viral syndrome 02/03/2024 Diabetes mellitus ([facility]) 01/18/2025 Essential hypertension ([facility]) 02/18/2012 Fibromyalgia 07/06/2017 Resolved Ambulatory Problems Diagnosis Date Noted No Resolved Ambulatory Problems Past Medical History: Diagnosis Date Anxiety Asthma CAD (coronary artery disease) ([facility]) CHF (congestive heart failure) ([facility]) Diabetes 1.5, managed as type 2 ([facility]) ([facility]) GERD (gastroesophageal reflux disease) Hoarseness HTN (hypertension) ([facility]) JEREMY (obstructive sleep apnea) Pulmonary hypertension ([facility]) PVD (peripheral vascular disease) ([facility]) Seasonal allergies Stage 4 chronic kidney disease ([facility]) Vitamin D deficiency Past Surgical History: Procedure [...] then prn if stable. documented in this encounterNortheast [facility] Medical [id number] History of Present illness Narrative* LBAINE Ramirez - 03/14/2025 3:00 PM EDT History: Patient was referred for an audiological evaluation, reporting fullness in her ears. Pt suspects the issue is related to her allergies. Pt denies symptoms of ear pain or vertigo. She perceives seldomtinnitus. History is negative for noise exposure. Otoscopic [...] 1. Dr. Barrera 03-17-2025 documented in this encounterNortheast Regional Medical [id number] History of Present illness Narrative* Leah Barrera MD - 01/18/2025 10:20 AM EDT Subjective Patient ID: Renuka Padron is a 69 y.o. female who presents for Swollen Glands Pt reports her glands were swollen, but have gone down now. Also c/o a 1 yr h/o delfino ear fullness. Family History Adopted: Yes Active Ambulatory Problems Diagnosis Date Noted Thyroid nodule ([facility]) 02/03/2024 LAD (lymphadenopathy) of left cervical region 02/03/2024 Abnormal results of cardiovascular function studies 03/03/2013 Acute renal insufficiency 02/03/2024 Allergic rhinitis 02/03/2024 Anemia 02/18/2012 Atrial septal defect within oval fossa 03/03/2013 Cellulitis 02/03/2024 Chronic combined systolic and diastolic congestive heart failure (CMS/HCC) 07/06/2017 Chronic right-sided congestive heart failure (CMS/HCC) 09/23/2023 CKD (chronic kidney disease), stage III (HCC) (CMS/[facility]) 09/23/2023 COPD (chronic obstructive pulmonary disease) (CMS/HCC) 03/17/2023 Atherosclerosis of artery 02/03/2024 Coronary atherosclerosis ([facility]/HCC) 03/03/2013 Cramps of left lower extremity 04/08/2018 [...] to other internal joint prosthesis, initial encounter ([facility]) 03/21/2023 Iron deficiency anemia 02/03/2024 Lingual tonsil hypertrophy 02/03/2024 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 ([facility]) 10/02/2022 LPRD (laryngopharyngeal reflux disease) 02/03/2024 Morbid obesity ([facility]) 03/03/2013 Multinodular goiter ([facility]) 02/03/2024 Obesity, Class III, BMI 40-49.9 (morbid obesity) ([facility]) 06/30/2017 Obstructive sleep apnea syndrome 06/05/2016 Primary osteoarthritis of left hip 02/03/2024 Osteoarthritis of knee 02/03/2024 Pulmonary HTN ([facility]) 07/06/2017 Restrictive lung disease 07/06/2017 Sciatica 02/03/2024 Thrombophlebitis 02/03/2024 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 ([facility]) 02/03/2024 Thrombophlebitis of left leg ([facility]) 02/03/2024 Urinary tract infection 02/03/2024 Abdominal infection ([facility]) 02/03/2024 Viral syndrome 02/03/2024 Diabetes mellitus ([facility]) 01/18/2025 Essential hypertension ([facility]) 02/18/2012 Fibromyalgia 07/06/2017 Resolved Ambulatory Problems Diagnosis Date Noted No Resolved Ambulatory Problems Past Medical History: Diagnosis Date Anxiety Asthma CAD (coronary artery disease) ([facility]) CHF (congestive heart failure) ([facility]) Diabetes 1.5, 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[facility]) GERD (gastroesophageal reflux disease) Hoarseness HTN (hypertension) ([facility]) JEREMY (obstructive sleep apnea) Pulmonary hypertension ([facility]) PVD (peripheral vascular disease) ([facility]) Seasonal allergies Stage 4 chronic kidney disease ([facility]) Vitamin D deficiency Past Surgical History: Procedure [...] F/U. Due for thyroid US. [facility] documented in [facility] encounterN[facility] CenterTgbaafrmwb10-05-1210 History of Present illness Narrative* Estrella Angelo MD - 01/06/2025 6:46 AM EDT Progress Note Subjective: Patient resting comfortably in [...] PA-C. Agree with assessment and plan. Estrella Angelo MD Orthopaedic Surgeon Orthopaedic [place] [facility] 01/06/2025 11:41 AM * Marilyn Weinstein RN - 01/05/2025 7:22 PM EDT Patient A&O x4, calm, and cooperative. Vital signs and head to toe assessment completed at thistime, see flowsheets for details. Patient was briefly educated on medications due tonight. Patient denies needs at this time. Call light within reach. Bedside table within reach, bed in lowest position, bed/chair wheels locked, and alarm is set. Care ongoing. * Kaylee Salamanca RCP - 01/05/2025 5:52 PM EDT RESPIRATORY ASSESSMENT PROTOCOL Patient Name: Renuka Padron Room#: 0333/0333-01 : 1955 Admitting diagnosis: Left [...] Chemistry: No results found for: PHART , ZKX1WVB , PO2ART , S4FQTMYA , BRK6USP , PBEA , NBEA VITALS Pulse: 51 [...] Cessation Booklet given: ____Yes ____No ____Patient Refused * Emelyn Pettit - 01/05/2025 3:07 PM EDT Explained policies and procedure of an echocardiogram/Doppler study. * Brenda Vizcaino RN - 01/05/2025 2:45 PM EDT TTE performed at bedside * Brenda Vizcaino RN - 01/05/2025 2:00 PM EDT Patient from xray per wheelchair * Brenda Vizcaino RN - 01/05/2025 1:45 PM EDT Patient when to xray per wheelchair. * Brenda Vizcaino RN - 01/05/2025 11:28 AM EDT Consults to Dr Huddleston and Danika Mera for bradycardia and hypotension. * Brenda Vizcaino RN - 01/05/2025 10:35 AM EDT Patient to 333 per stretcher, report received from Lashawn, patient sleepy but easily arrousable, assessment and vitals initiated, patient instructed community integration specialist light use and available to patient, patient denies pain, 2L/min O2 nasal cannula,bed alarm on, * Kaylee Esqueda RN - 01/05/2025 10:27 AM EDT Discharge Criteria Inpatients must meet Criteria 1 [...] or return to baseline mental status. Yes * Kaylee Esqueda RN - 01/05/2025 10:[address] Angelo updated on patient being admitted for 24 hour observation. * Kaylee Esqueda RN - 01/05/2025 9:[address] Dawkins at bedside. * Corinne Gunter APRN - UNDERLINER - 01/05/2025 9:23 AM EDT Have been at patient's bedside d/t postoperative hypotension. Patient bradycardic/hypotensive upon assessment. Was placed on 2L NC for SpO2 dropping to 88% while sleeping. Asymptomatic other than lethargy. Denies SOB/CP. 500 IVF given so far between intra-op and postop course. Fluids remain open. 5mg IV ephedrine given. SBP increased from high 80s/low90s to 100s briefly following intervention. 12lead EKG obtained as well and left message with Dr. Dawkins's office asking for him to evaluate patient. Waiting to hear back. * Kaylee Esqueda RN - 01/05/2025 9:00 AM EDT Pt has been hypotensive, bradycardic and drowsy post operatively. Anesthesia notified and remained at bedside; orders received. EKG performed; bedside 3 lead EKG monitoring initiated. * Kajal York APRN - CNP - 01/03/2025 3:51 PM EDT EKG and medical clearance received from Dr Sosa, patient's pcp. Both and prior EKG from 2022 were reviewed with anesthesia. Okay to proceed. * Kajal York APRN - CNP - 01/03/2025 3:46 PM EDT Patient's PCP-Dr Sosa calls PAT. States he is willing to do another EKG and after review of thathe would be willing to clear patient. * Kajal York APRN - CNP - 01/02/2025 1:13 PM EDT Case was discussed with HUAN Smith. Patient will need an updated EKG or do the procedure under a local. Dr Angelo's office was contacted and Rocío (Dr. Angelo's MA) states Dr Angelo will do these procedures under a local, but it is generally the patient asking for the anesthesia. Patient was contacted by keno writer. 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 We discussed mac vs local and patient unsure of what she wants to do. She states she was on her way to her PCP appointment and would like to discuss this with her PCP. She states she will call back. * Violeta Higgins RN - 01/02/2025 12:56 PM EDT Patient instructed on the pre-operative, intra-operative, and post-operative process. Patient instructed on NPO status. Medication instructions and pre operative instruction sheet reviewed with the patient. Patient can take her gabapentin, topiramate, pantoprazole and allopurinol with a small sip of water the morning of her procedure, prior to arrival to the hospital. * Violeta Higgins RN - 12/28/2024 11:50 AM EDT Attempted PAT phone call; no answer; message left to return PAT phone call. Patient informed that Ihave no information on her in our system. I requested she gather up her medical history, medications, allergies and such then call me back. documented in this encounterBon [facility] Discharge instructions* Discharge Instructions* Kaylee Esqueda RN - 01/05/2025 7:43 AM [...] surgeon for further instructions. A small amount ofbright red blood is to be expected. 7. [...] - No restrictions Remove bandage this afternoon * Discharge Instr - Activity* Rocío Aguero RN - 01/06/2025 9:53 AM EDT As tolerated * Discharge Instr - Diet* Rocío Aguero RN - 01/06/2025 9:58 AM EDT Good [...] most local grocery stores, pharmacies, and chain [employer]stores. If you have any questions about your diet or nutrition, call the hospital and ask for the dietitian. General diet documented in this encounterBon [facility]08[facility] NoteProgress Note-Physician Patient: RENUKA PADRON Age: 68 years Sex: Female : 1955 Associated Diagnoses: None Author: Vald Loera DO Postoperative Information Postoperative disposition: Postoperative [...] # 120 tab(s), Refills(s) 0, Pharmacy: [facility] Documented Medications Documented Fiber Tabs: 1 tab, Oral, Daily, Refills(s) 0, Prophylaxis Symbicort 160/4.5 inhalation aerosol with adapter: Refill(s) 0, 10 gm, 0 Refill(s), INHALE 2 PUFFS TWICE A DAY Vitamin D3: Oral, BID, Refills(s) 0, Prophylaxis Vitamin D3: Oral, Refills(s) 0, Prophylaxis acetaminophen-oxycodone 325 mg-5 mg oral tablet: 1 tab(s), Oral, q6hr as needed for pain, Refill(s)0 albuterol HFA 90 mcg/inh MDI: Refill(s) 0, [...] Refills(s) 0, Prophylaxis fluticasone 0.05 mg/inh Nasal [place]: 2 spray(s), Nasal, Daily, Refill(s) 0, Allergy [...] tab, Oral, Daily fluticasone 0.05 mg/inh Nasal [place] 2 spray(s), Nasal, Daily gabapentin 300 mg [...] CHF (congestive heart failure) / SNOMED CT 85265570 / Confirmed COPD (chronic obstructive pulmonary disease) / SNOMED CT 36946574 / Confirmed Hypertension / SNOMED CT 8267431993 / Confirmed Kidney failure / SNOMED CT 42191760 / Confirmed Physical Examination Vital Signs 06/01/2024 [...] EDT Heart Rate Mon (more content not included)...[facility] CenterComment on above:Result Comment: Electronically Signed By: Vlad Loera DO\.br\Date and Time Signed: 06/01/24 13:29 RME04-25-1948 NotePatient Education - Text Endoscopy Care After Procedure Please read the instructions outlined below and refer to this sheet in the next few weeks. These discharge instructions provide you with general information on [facility] Your doctor may also give you specific [...] Document Re-Released: 03/29/2007 ExitCare? Patient Information ?2009 adicate timeads. Colonoscopy Care After Surgery Please read the instructions outlined below and refer to this sheet in the next few weeks. These discharge instructions provide you with general information on caring [facility] Your doctor may also give you specific [...] Heavy or fried foods are harder to digestand may make you feel nauseated (sick to [...] that bowel contents c (more content not included)...[facility]08-14-2024 NoteEndoscopic Procedure Report - Other Patient: RENUKA PADRON Age: 68 years Sex: Female : 1955 Associated Diagnoses: None Author: Glen Bejarano MD Pre-Procedure Procedure Date 06/01/2024 13:10:00 . Procedure Type: Colonoscopy. Procedure provider Performed by Glen Bejarano MD. Current history and physical Documented on chart. Reviewed. EGD (esophagogastroduodenoscopic) electrohydraulic lithotripsy of bezoar in stomach (6097788495) on06/15/2019 at 63 Years. Colonoscopy (817726363) on 08/02/2018 at 63 Years. Appendicectomy (193501171). Tonsillectomy (595120470). Gastric bypass (1124044918). Both knees (89921602). Tendonitis of left ankle (006341659771579). Caesarean section ().. Past Medical History No active or resolved past medical history items have been selected or recorded.. Family History Patient was adopted. History is unknown.. Procedure History EGD (esophagogastroduodenoscopic) electrohydraulic lithotripsy of bezoar in stomach (9442890285) on06/15/2019 at 63 Years. Colonoscopy (886105851) on 08/02/2018 at 63 Years. Appendicectomy (413768619). Tonsillectomy (145033249). Gastric bypass (7142302065). Both knees (49020928). Tendonitis of left ankle (465552706999281). Caesarean section ().. Colorectal neoplasm risk assessment [...] tab(s), Oral, q6hr as needed for pain, Refill(s)0 albuterol HFA 90 mcg/inh MDI: Refill(s) 0, [...] Refills(s) 0, Prophylaxis fluticasone 0.05 mg/inh Nasal [place]: 2 spray(s), Nasal, Daily, Refill(s) 0, Allergy [...] the left lateral decubitus position. Endoscope type usedwas a pediatric-size. The endoscope was lubricated then [...] otherwise normal colonic mucosa Images Procedure images: [id number]_[id number]__[id number]_[id number] (more content not included)...[facility] CenterComment on above:Result Comment: Electronically Signed By: Darci BRYANT, Glen Ta\.br\Date and Time Signed: 06/01/24 13:11 EDTOther Comment: Missing Attachment - attachment storage system not supported [id number] Can be viewed in source system Missing Attachment - attachment storage system not supported [id number] Can be viewed in source systemMissing Attachment - attachment storage system not supported 2558145 Can be viewed in source systemMissing Attachment - attachment storage system not supported 7881333 Can be viewed in source systemMissing Attachment - attachment storage system not supported 7766407 Can be viewed in source systemMissing Attachment - attachment storage system not supported 7558756 Can be viewed in source systemMissing Attachment - attachment storage system not supported 0152756 Can be viewed in source systemMissing Attachment - attachment storage system not supported 9302421 Can be viewed in source system 06-01-2024 NoteEndoscopic Procedure Report - Other Patient: RENUKA PADRON Age: 68 years Sex: Female : 1955 [...] safety measures. Endoscope type used was an adult- size, introduced orally, advanced to jejunum. No difficulty was encountered during the procedure. Views were excellent. The patient tolerated the procedure well. Findings 1. Esophageal landmarks identified, normal examined esophagus. Empiric dilation with Delcid 54 Rw[place]an was done, no mucosal disruption was noted afterwards 2. Evidence of surgery in the stomach with Joellen-en-Y anatomy, normal anastomosis, minimal patchy erythema in the gastric pouch, otherwise normal gastric pouch. Random biopsies were taken to rule out H. pylori 3. Normal examined efferent jejunal loop, advanced about 10 cm Images Procedure images: [id number].jpg [id number]__[id number].jpg [id number]_[id number]_[id number]__[id number].jpg [id number]_hd_video_[id number]__[id number].jpg . Post-Procedure Complications: none. Estimated blood loss: Minimal. Specimens: sent to pathology, None. Devices/ implants: none left in place. Impression and Plan 1. Esophageal landmarks identified, normal examined esophagus. Empiric dilation with Delcid 54 Rw[place]an was done, no mucosal disruption was noted [...] pathology results, follow-up in GI clinic next availableUniversity [facility] CenterComment on above:Result Comment: Electronically Signed By: Darci BRYANT, Glen Ta\.br\Date and Time Signed: 06/01/24 12:35 EDTOther Comment: Missing Attachment - attachment storage system not supported [id number] Can be viewed in source system Missing Attachment - attachment storage system not supported 1318476 Can be viewed in source systemMissing Attachment - attachment storage system not supported 0347966 Can be viewed in source systemMissing Attachment - attachment storage system not supported 4635312 Can be viewed in source systemMissing Attachment - attachment storage system not supported 2378758 Can be viewed in source systemMissing Attachment - attachment storage system not supported 7128644 Can be viewed in source systemMissing Attachment - attachment storage system not supported 3144476 Can be viewed in source systemMissing Attachment - attachment storage system not supported 1070328 Can be viewed in source system 06-01-2024 NoteProgress Note-Physician Patient: RENUKA PADRON Age: 68 years Sex: Female : 1955 Associated Diagnoses: None Author: Vlad Loera DO Preoperative Information Anesthesia history: Patient history: None. Family history+: None. Anesthesia results Informed consent: Signed by patient. Including risks, benefits, and alternatives related to the: Anesthetic plan, Postoperative pain management plan. Re-evaluation prior to induction: Vlad Loera DO Health Status Allergies: Allergic Reactions (Selected) Severity [...] tab(s), Oral, q6hr as needed for pain, Refill(s)0 albuterol HFA 90 mcg/inh MDI: Refill(s) 0, [...] Refills(s) 0, Prophylaxis fluticasone 0.05 mg/inh Nasal [place]: 2 spray(s), Nasal, Daily, Refill(s) 0, Allergy [...] tab, Oral, Daily fluticasone 0.05 mg/inh Nasal [place] 2 spray(s), Nasal, Daily gabapentin 300 mg [...] CHF (congestive heart failure) / SNOMED CT 97157024 / Confirmed COPD (chronic obstructive pulmonary disease) / SNOMED CT 68240517 / Confirmed Hypertension / SNOMED CT 7279184967 / Confirmed Kidney failure / SNOMED CT 89183157 / Confirmed, Active Problems (4) CHF (congestive heart failure) COPD (chronic obstructive pulmonary disease) Hypertension Kidney failure Histories Past Medical History: No active or resolved past medical history items have been selected or recorded. Family History: Patient was adopted. History is unknown. Procedure history: EGD (esophagogastroduodenoscopic) electrohydr (more content not included)... [facility] CenterComment on above:Result Comment: Electronically Signed By: Vlad Loera DO.br\Date and Time Signed: 06/01/24 11:29 EDT 11-03-2023 Evaluation note* Encounter Date Diagnosis Assessment Notes Treatment Notes Treatment Clinical Notes Oct, Asthma, moderate persistent (ICD -10 - J45.40) [facility] Other 09-19-2023 Evaluation note* Encounter Date Diagnosis Assessment Notes Treatment Notes Treatment Clinical Notes Jun, Asthma, moderate persistent (ICD -10 - J45.40) Jun,Morbid obesity (ICD-10 - E66.01) Jun,OSA (obstructive sleep apnea) (ICD-10 - G47.33) Jun,llergic rhinitis (ICD-10 - J30.9) Jun,ERD (gastroesophageal reflux disease) (ICD-10 - K21.9) [facility] Other 06-07-2023 History of Present illness Narrative* Jocelyn Muller RN - 03/25/2023 2:44 PM EDT Verbal report called and provided to receiving nurse, MARIBELL Alford at [facility]. Patient's current status and most [...] Pt. met goals for discharge to a [facility] facility. Discussed with thepatient the last pain medication and when the next dose is due. Pt. received written discharge instruction packet to be taken to the [facility] facility. Pt. is discharged per the general medical doctor and the surgeon orders. Patient left in a personal vehicle to be driven to the facility by her son. * Haley He PTA - 03/25/2023 2:28 PM EDT Physical Therapy Pt declined PT d/t son almost here to take her to the SNF. * Colt Angelo MD - 03/25/2023 12:34 PM EDT Images from the original note were not included. INFECTIOUS DISEASES DAILY PROGRESS NOTE Patient Name: Renuka Padron MR #: [id number] Hospital Day: 7 Assessment and Plan: 1. [...] Given her debility she will discharge to [facility] to receive meropenem 2 g every 12 hours for 6 weeks. We will follow-up with her at that time and hopefully transition her to a lengthy course of oral therapy. ECF Nursing Instructions: 1)Picc Care 2)Qmon CBC,SR,Creat,CRP, fax to Dr. Angelo [phone] 3)IV ATB for 42 days 4)Call Dr. Angelo for F/C/S, N/V/D, rash, 5)F/U with Dr Angelo in 4-5 weeks 6) Call if released before completing IV therapy. Colt Angelo MD Infectious Diseases Temp (24hrs), Av[address] C [...] intravenous Every 8 hours 03/24/23 2341 05/05/23 5324 Subjective/Objective: Comfortable Review of Systems: I have [...] 1)Picc Care 2)Qmon CBC,SR,Creat,CRP, fax to Dr. Angelo [phone] 3)IV ATB for 42 days 4)Call Dr. Angelo for F/C/S, N/V/D, rash, 5)F/U with Dr Angelo in 4-5 weeks 6) Call if released [...] mentioned in the impression and plan. Colt Angelo MD * Haley He PTA - 03/25/2023 12:00 PM EDT Physical Therapy Pt declined PT d/t being discharged to SNF soon and wanting to eat. * Nik Cates RN - 03/25/2023 11:14 AM EDT Discharge folder placed at the nursing station. RN update folder is available once goals have been met and the pt is cleared by [employer]. * Nik Cates RN - 03/25/2023 9:28 AM EDT Call received from Addi at [facility]. Discharge orders can be faxed to [phone]. Report [phone]. Addi indicated she was updated yesterday that transport will be around noon. * Evelyn Jose MD - 03/25/2023 8:16 AM EDT [address] [place] [address] Query Response Note PATIENT: RENUKA PADRON : 1955 ADMIT DATE: 03/21/2023 12:44 PM DISCH DATE: RESPONDING PROVIDER #: [id number] CDI RESPONSE TEXT: See PN CDI QUERY TEXT: Documentation of CHF -Chronic Right-sided CHF with mild LV Dysfunction. Please further specify below: --Chronic Systolic CHF/HFrEF, please specify present on admission. --Chronic Diastolic CHF/HFpEF, please specify present on admission. --Chronic Systolic and Diastolic CHF, please specify present on admission. The patient's clinical indicators include: Clinical Indicators: EPIC Note: -03/19Consult Dr. Nadai Squires: -Chronic Right-Sided CHF with mild LV Dysfunction -02/24/17 Echo-Mildly reduced LV systolic function -02/24/17 Lexiscan RELATIONS MGR-mildly diminished LV systolic function with an EF of 48% -03/05/17-Non obstructive 3 vessel CAD -03/[address] Dee Dee Sparrow: -Congestive Heart Failure -Chronic Right-Sided CHF with mild LV Dysfunction -Mild Pulmonary HTN -on Diuretics. Treatment: EPIC MAR: -03/20 po Bumex BID Hod if, SBP <110. Risk Factors: H&P/PN: -67 yrs. of Age -s/p Left Knee Polyexchange, I&D for periprostatic infection -CHF -right-sided w/Mild LV Dysfunction -Pum. HTN -HTN -CKD Thank you, Chelsea Bearden RN, [employer], CDI. cell: [phone]. Options provided: -- Respond - Create new note now -- Disagree - Not applicable / Not valid Query created by: CHELSEA BEARDEN on 03/24/2023 12:45 PM Electronically signed by: EVELYN JOSE MD 03/25/2023 8:15 AM * Evelyn Jose MD - 03/25/2023 8:12 AM EDT [facility] - PROGRESS NOTE Patient Name : Renuka Padron Patient : 1955 Patient Admit Date : [...] opiates, and antibiotics to surgical service. Disposition: [facility] facility. Subjective Patient reports pain is currently [...] AMADO received a call from Addi at [facility] and they received precert. Facility will [...] AMADO received a call from Cindy at [facility] inquiring possible duration of IV ATB [...] PM EDT AMADO spoke to Rosetta at [facility] and she confirmed the facility is still awaiting the precert from [facility]. Facility does request a repeat covid test day of discharge. CM will update the patient and also plan to complete a HENS and place in the discharge folder. * Amanda Gorman PTA - 03/24/2023 1:37 PM EDT [facility] Physical Therapy Treatment PT Discharge Recommendations: [facility] facility placement Distance Ambulated (ft): 50 Device: [...] PT POC until patient is d/c from [facility]. 03/24/23 1337 General Family/Caregiver Present No PT [...] PT Plan Skilled PT PT Discharge Recommendations [facility] facility placement Goals/Education Encounter Problems Encounter Problems (Active) Template: Physical Therapy Problem: PT Short Term Goals Dates: Start: 03/19/23 Goal: Pt will perform bed mobility with CGA Dates: Start: 03/19/23 Expected End: 03/20/23 Outcomes Date/Time User Outcome 03/24/23 160Felicitas Gorman PTA Progressing Goal: Pt will perform [...] Gorman PTA - 03/24/2023 11:13 AM EDT [facility] Physical Therapy Treatment PT Discharge Recommendations: [facility] facility placement Distance Ambulated (ft): 50 Device: [...] PT POC until patient is d/c from [facility]. 03/24/23 1113 General Family/Caregiver Present No PT [...] PT Plan Skilled PT PT Discharge Recommendations [facility] facility placement Goals/Education Encounter Problems Encounter Problems [...] - PROGRESS NOTE Patient Name : Renuka Padron Patient : 1955 Patient Admit Date : [...] service. Disposition: Planning to go to a [facility] facility. Subjective Patient reports pain is currently [...] Intake/Output Summary (Last 24 hours) at 03/24/2023 0727 Last data filed at 03/23/20232010 Gross per [...] Call received from Addi in admissions at [facility]. Precert is still pending. Addi inquired if pt is wearing a CPAP. Per RT-pt is non-compliant and does not wear CPAP. * Renuka Mccabe, PT - 03/23/2023 12:37 PM EDT [facility] Physical Therapy Treatment PT Discharge Recommendations: [facility] facility placement Distance Ambulated (ft): 50 Device: [...] Outcomes Date/Time User Outcome 03/23/23 1320 Renuka Mccabe, PT Progressing Goal: Pt will ambulate x150 [...] CM made OB call to [facility] [place]-spoke to Addi in admissions- precert is still pending at this time. She has forwarded updated notes and will be in touch as soon as she hears anything. CM will continue to follow. * Renuka Mccabe PT - 03/23/2023 9:07 AM EDT [facility] Physical Therapy Treatment PT Discharge Recommendations: [facility] facility placement Distance Ambulated (ft): 45 Device: [...] in reach, needs met and RN updated. 03/23/23906 General Family/Caregiver Present No PT Time Calculation PT Start Time 906 PT Stop Time 942 PT Time Calculation (min) 36 min Precautions [...] well Medical Staff Made Aware Yes Comments Dora, RN Goals/Education Encounter Problems Encounter Problems (Active) Template: Physical Therapy Problem: PT Short Term Goals Dates: Start: 03/19/23 Goal: Pt will perform bed mobility with CGA Dates: Start: 03/19/23 Expected End: 03/20/23 Outcomes Date/Time User Outcome 03/23/23 0951 Renuka Mccabe, PT Progressing Goal: Pt will perform transfers [...] Plan for discharge to Subacute Rehab Facility ([facility]) when cleared by PT and medically stable * Julia Meredith RN - 03/23/2023 7:26 AM EDT CM has sent updated PT and progress notes to [facility] at [facility] via manual efax- [phone]-witha note checking on status of precert. CM will continue to follow. * Evelyn Jose MD - 03/23/2023 6:40 AM EDT [facility] - PROGRESS NOTE Patient Name : Renuka Padron Patient : 1955 Patient Admit Date : [...] Disposition: Patient planning to go to a [facility] facility. Subjective Patient reports pain is currently [...] for discharge. Awaiting SNF precert. * Colt Angelo MD - 03/22/2023 12:04 PM EDT Images from the original note were not included. INFECTIOUS DISEASES DAILY PROGRESS NOTE Patient Name: Renuka Padron MR #: [id number] Hospital Day: 4 Assessment and Plan: 1. Left knee: Stable on antibiotic medication. Intraoperative cultures pending. 2. Leukocytosis: Improving. 3. Disposition: Anticipate discharge with IV therapy, hoping for placement by tomorrow. Colt Angelo MD Infectious Diseases Temp (24hrs), Av.7 C [...] - MBP 1 g intravenous q8h Colt Angelo MD 200 mL/hr at 03/22/23 1610 1 [...] Valeriano Squires MD 40 mg at 03/22/23 100 [...] 10 mL 10 mL intravenous q8h Colt Angelo MD 10 mL at 03/22/23 1145 sodium chloride 0.9 % flush 20 mL 20 mL intravenous PRN Colt Angelo MD 20 mL at 03/20/23 1436 sodium [...] mentioned in the impression and plan. Colt Angelo MD * Amanda Horvath, PT - 03/22/2023 11:25 AM EDT [facility] Physical Therapy Treatment PT Discharge Recommendations: [facility] facility placement Distance Ambulated (ft): 35 Device: [...] Outcomes Date/Time User Outcome 03/22/23 1156 Amanda Horvath, PT Progressing Goal: Pt will perform transfers with SBA/FWW Dates: Start: 03/19/23 Expected End: 03/20/23 Outcomes Date/Time User Outcome 03/22/23 1156 Amanda Horvath, PT Progressing Goal: Pt will ambulate x150 ft with SBA/FWW Dates: Start: 03/19/23 Expected End: 03/20/23 Outcomes Date/Time User Outcome 03/22/23 1156 Amanda Horvath, PT Progressing Goal: Pt will ascend/descend [...] Understanding Explain call button use, taught by mAanda Horvath PT at 03/22/2023 10:57 AM. Learner: [...] Plan for discharge to Subacute Rehab Facility ([facility]) when cleared by PT and medically stable * Amanda Horvath PT - 03/22/2023 10:05 AM EDT [facility] Physical Therapy Treatment PT Discharge Recommendations: [facility] facility placement Distance Ambulated (ft): 30 Device: [...] End: 03/20/23 Outcomes Date/Time User Outcome 03/22/23 105Felicitas Horvath PT Progressing Goal: Pt will perform [...] - PROGRESS NOTE Patient Name : Renuka Padron Patient : 1955 Patient Diagnosis : Perioperative [...] IVFs, pulse oximetry, and supplemental oxygen for [id number] than 90%. Coronary Artery Disease ( I [...] HTN -on Diuretics. Remains compensated on rounds /4. Plan to watch sats and lung exam [...] Echo-Mildly reduced LV systolic function 02/24/17 Lexiscan RELATIONS MGR-mildly diminished LV systolic function with an EF [...] worsening End of Shift Summary * Colt Angelo MD - 03/21/2023 1:11 PM EDT Images from the original note were not included. INFECTIOUS DISEASES DAILY PROGRESS NOTE Patient Name: Renuka Padron MR #: [id number] Hospital Day: 3 Assessment and Plan: 1. Left knee: Intraoperative cultures pending without growth. Preoperative aspirate with Pasteurella. Continuing current antimicrobial regimen. 2. Leukocytosis: Improving. 3. Disposition: Working on placement. Discussed with case management. Discussed with patient and son by telephone. Colt Angelo MD Infectious Diseases Temp (24hrs), Av.8 C [...] PRN Valeriano Squires MD 25 mg at 03/20/232055 diphenhydrAMINE [...] Nightly Valeriano Squires MD 400 mg at 03/20/23 205 meropenem (MERREM) 1 g in sodium chloride 0.9 % 100 mL IVPB - MBP 1 g intravenous q8h Colt Angelo MD 200 mL/hr at 03/21/23 1706 1 [...] Valeriano Squires MD 40 mg at 03/21/23 0916 [...] 10 mL 10 mL intravenous q8h Colt Angelo MD 10 mL at 03/21/23 0503 sodium chloride 0.9 % flush 20 mL 20 mL intravenous PRN Colt Angelo MD 20 mL at 03/20/23 1436 sodium [...] mentioned in the impression and plan. Colt Angelo MD * Yasmin Beck, PT - 03/21/2023 12:55 PM EDT [facility] Physical Therapy Treatment PT Discharge Recommendations: [facility] facility placement Distance Ambulated (ft): 0, 30feet [...] pending Medical Staff Made Aware Yes Comments Haley RN notified Goals/Education Encounter Problems Encounter Problems [...] AM EDT OB call to [facility] at [place] [phone]. NN spoke with [facility]. Per [facility] admissions staff are out of the office until Thursday. CM will continue to follow. * Yasmin Beck PT - 03/21/2023 9:57 AM EDT [facility] Physical Therapy Treatment PT Discharge Recommendations: [facility] facility placement Distance Ambulated (ft): 30 Device: [...] Cates RN - 03/21/2023 8:52 AM EDT [facility] Case Management Rounding Note Patient Renuka Dunn Nereida * Anusha Barber MD - Primary Procedure(s): [...] Plan for discharge to Subacute Rehab Facility ([facility]) when cleared by PT and medically stable * Pj Sparrow MD - 03/21/2023 6:44 AM EDT [facility] - PROGRESS NOTE Patient Name : Renuka Padron Patient : 1955 Patient Diagnosis : Perioperative [...] home. Patient denied respiratory symptoms on rounds 6/3. Patient remains at elevated risk for postoperative [...] Echo-Mildly reduced LV systolic function 02/24/17 Lexiscan RELATIONS MGR-mildly diminished LV systolic function with an EF [...] - 03/20/2023 2:03 PM EDT Rosetta from [employer] is requesting todays clinicals and manually faxed to her Efax of [phone] * Haley He PTA - 03/20/2023 12:25 PM EDT [facility] Physical Therapy Treatment PT Discharge Recommendations: [facility] facility placement Distance Ambulated (ft): 30 in a.m. session Device: Rolling walker L Knee Flexion 0-140: 0-46 in a.m. session Fall prevention education provided including use of call light in hospital, use of appropriate assistive device, safe mobility techniques, and safety measures at home. Continue PT as per POC. Subjective/Objective/Assessment/Plan Pt stated she had just returned to bed from the with staff assist. Pt declined HEP but [...] Date/Time User Outcome 03/20/23 1052 Haley He [employer]OP [employer]ETER Progressing Goal: Pt will ambulate x150 ft [...] 03/20/2023 10:31 AM EDT Rosetta called from [facility] [place] and she received the updated clinicals sent this morning andshe will begin precert. Patient updated. * Debbie Kapadia RN - 03/20/2023 9:56 AM EDT Called Rosetta at [facility] [place] she is reviewing the referral now and faxed this mornings progress notes and PT note to her at [phone] * Haley He PTA - 03/20/2023 9:37 AM EDT [facility] Physical Therapy Treatment PT Discharge Recommendations: [facility] facility placement Distance Ambulated (ft): 30 Device: [...] 03/20/2023 8:34 AM EDT Spoke to Dr Angelo per phone and he does want a PICC line placed today Order entered and PICC RN updated. * Carlos Gomez, DO - 03/20/2023 7:07 AM EDT Joint [...] Plan for discharge to Subacute Rehab Facility ([facility]) when cleared by PT and medically stable * Valeriano Squires MD - 03/20/2023 6:42 AM EDT [facility] - PROGRESS NOTE Patient Name : Renuka Padron Patient : 1955 Patient Diagnosis : Perioperative [...] Echo-Mildly reduced LV systolic function 02/24/17 Lexiscan RELATIONS MGR-mildly diminished LV systolic function with an EF [...] [facility]. Hypertension ( I [...] and situation RESULTS : Hemoglobin A1c Order: [id number] Status: Final result Visible to patient: Yes (not seen) 0 Result Notes Component Ref Range & Units 1 d ago 6 mo ago Hemoglobin A1C <=5.6 % 5.7 High 5.6 CM Mean Bld Glu Estim. mg/dL 117 114 Resulting Agency [facility] Narrative Performed by: [facility] HbA1c values of 5.7-6.4 percent indicate [...] 0404 03/20/23 0402 03/19/23 2009 03/19/23 1538 06/01/23 1145 SODIUM mmol/L -- 138 -- -- [...] Fiore Signed Date: 10/02/2022 15:22 Workstation ID: [id number] Transcribed By: Self Edit Transcribed Date: 10/02/2022 [...] withoutdifficulty. Patient plans to discharge to a [facility] facility. * [facility] Miller, PT - 03/19/2023 6:32 PM EDT [facility] Physical Therapy Evaluation PT Discharge Recommendations: [facility] facility placement Distance Ambulated (ft): 30 Device: [...] loosening of internal left knee prosthetic joint ([facility]/HCC) Mechanical loosening of internal left knee prosthetic joint, subsequent encounter S/P left knee surgery Past Medical History: Diagnosis Date Anemia Arthritis Asthma CHF (congestive heart failure) ([facility]) Chronic kidney disease CKD 2/3 COPD (chronic obstructive pulmonary disease) ([facility]) Dental disease full dentures Diabetes mellitus ([facility]) DVT of leg (deep venous thrombosis) ([facility]) 2021 left leg GERD (gastroesophageal reflux disease) Hypertension Osteoporosis Shortness of breath Sleep apnea no device Wears dentures Wears glasses Past Surgical History: Procedure Laterality Date APPENDECTOMY SECTION, LOW TRANSVERSE JOINT REPLACEMENT Left revision KNEE ARTHROPLASTY Bilateral TONSILLECTOMY UPPER GASTROINTESTINAL ENDOSCOPY Objective 03/19/23 183 General Family/Caregiver Present No PT Time Calculation PT Start Time 1831 PT Stop Time 190 PT Time Calculation [...] 1-2 times per day PT Discharge Recommendations [facility] facility placement PT - Evaluation Status Complete [...] PM EDT Followed up with [facility] at [place]. . Admissions does have a skilled bed And obtained updated fax number and refaxed referral to [phone]. * Debbie Kapadia RN - 03/19/2023 5:19 PM EDT 03/19/23 1718 Discharge Planning Living Arrangements Children Support Systems Children Assistance Needed skilled care Type of Residence Private residence Patient expects to be discharged to: SNF Does the patient need discharge transport arranged? No Follow Up Needs/Requests none Initial Transition Plan Initial Transition Plan Alf Facility Back up Transition Plan Back up Transition plan Alf Facility Patient is planning to go to SNF for Re[facility] in [place]. Will place a referral. Son to transport [...] requesting rehab at discharge documented in this encounterGeisinger [facility] [id number] Consult note* Colt Angelo MD - 03/20/2023 3:58 PM EDTAssociated Order(s): IP CONSULT TO INFECTIOUS DISEASES Images from the original note were not included. INFECTIOUS DISEASES CONSULTATION NOTE Patient Name: Renuka Padron Admit Date: [id number] MR #: [id number] : 1955 Hospital Day: 2 Date of [...] postdischarge. Thank you for your consultation Colt Angelo MD Infectious Diseases History of Present Illness: [...] progressively worsened. She went to go to congregation on Thursday and pain was severe. 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 store to warehouse order picker a few things and was able to [...] Anemia Arthritis Asthma CHF (congestive heart failure) ([facility]) Chronic kidney disease CKD 2/3 COPD (chronic obstructive pulmonary disease) ([facility]) Dental disease full dentures Diabetes mellitus ([facility]) DVT of leg (deep venous thrombosis) ([facility]) 2020 left leg GERD (gastroesophageal reflux disease) [...] flush 10 mL 10 mL intravenous q8h Cotl Angelo MD 10 mL at 03/20/23 1141 sodium chloride 0.9 % flush 20 mL 20 mL intravenous PRN Colt Angelo MD 20 mL at 03/20/23 1436 sodium [...] moderate to high level of complexity. Colt Angelo MD [facility] [id number] Consult note* Colt Angelo MD - 03/20/2023 3:58 PM EDTAssociated Order(s): IP CONSULT TO INFECTIOUS DISEASES Images from the original note were not included. INFECTIOUS DISEASES CONSULTATION NOTE Patient Name: Renuka Padron Admit Date: [id number] MR #: [id number] : 1955 Hospital Day: 2 Date of [...] postdischarge. Thank you for your consultation Colt Angelo MD Infectious Diseases History of Present Illness: [...] progressively worsened. She went to go to congregation on Thursday and pain was severe. 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 store to warehouse order picker a few things and was able to [...] knee revealing 53,000 white cells. Physicians: Peter Sosa, (Family); No ref. provider found (Referring) History: Past Medical History: Diagnosis Date Anemia Arthritis Asthma CHF (congestive heart failure) ([facility]) Chronic kidney disease CKD 2/3 COPD (chronic obstructive pulmonary disease) ([facility]) Dental disease full dentures Diabetes mellitus ([facility]) DVT of leg (deep venous thrombosis) ([facility]) 2020 left leg GERD (gastroesophageal reflux disease) [...] Nightly Valeriano Squires MD 400 mg at 03/19/23 2006 naloxone (NARCAN) injection 0.4 mg 0.4 mg [...] 10 mL 10 mL intravenous q8h Colt Angelo MD 10 mL at 03/20/23 1141 sodium chloride 0.9 % flush 20 mL 20 mL intravenous PRN Colt Angelo MD 20 mL at 03/20/23 1436 sodium chloride 0.9 % infusion 100 mL/hr intravenous Continuous aVleriano Squires MD 100 mL/hr at 03/19/23 1706 [...] moderate to high level of complexity. Colt Angelo MD * Jessica Briseno RN - 03/20/2023 11:04 AM EDTAssociated Order(s): IP CONSULT TO IV TEAM PICC Line Insertion Procedure Note Procedure: Insertion of 4 FR SL Power and PICC into right arm per hospital protocol Indications: Student Support Advisor IV therapy, Home IV therapy Insertion: Bedside [...] prevention, CLABSI, and PICC procedural information. [employer] Board Director Lot #: [id number] * Jessica Briseno RN - 03/20/2023 10:[address] Henderson, patient's correction officer reformatory, has okayed patient for a PICC line. * Valeriano Squires MD - 03/19/2023 7:53 AM EDT Chief complaint: [facility] - PREOPERATIVE MEDICAL RISK STRATIFICATION Patient Name : Renuka Padron Patient : 1955 Patient Admission Diagnosis : [...] Echo-Mildly reduced LV systolic function 02/24/17 Lexiscan RELATIONS MGR-mildly diminished LV systolic function with an EF [...] prevention [facility]. Hypertension ( I [...] symptoms. HISTORY OF PRESENT ILLNESS : Vanessa Padron, 67 y.o. female presenting for preoperative medical [...] 2017 Cardiac clearance from 09/25/22; Dr. Campos [id number] with CPAP CKD Stage 4-baseline creat 1.04 Nephrology clearance from 09/30/22; Dr [place] Secondary renal hyperparathyroidism GERD Chronic anemia Prediabetes [...] reaction No Previous Transfusion Related Reactions No Anabaptism Reasons To Avoid Blood Transfusions ANESTHESIA HISTORY [...] Echo-Mildly reduced LV systolic function 02/24/17 Lexiscan RELATIONS MGR-mildly diminished LV systolic function with an EF [...] 03/19/2023 GLUCOSE 97 03/19/2023 documented in this encounterGeisinger Encompass [facility] Rehabilitation [id number] Hospital course Narrative* Debbie Kapadia RN - [...] dressing every seven days and as needed. [facility] -PT/OT Eval for Gait training, ADL'S, bed mobility, transfers, rom and strengthening, venous returnexercises and modalities prn. -WBAT LLE -FWW for gait assist Please follow surgeon's discharge instructions and prescription directions. Surgeon' discharge instructions are in patient's folder- FOLLOW SURGEON INSTRUCTION SHEETS Contact Surgeon's office with any questions/concerns [phone] -Plasma Flow SCD'S Compression leg pumps on Bilateral Legs for 20 hours per day x 2 weeks for additional DVT prevention- SEE SURGEONS INSTRUCTION SHEETS FOR DIRECTIONS -use over the counter stool softeners to prevent constipation - Prevena wound vac - Patient to call office and schedule an appointment to have prevena removed on03/27/2023- [phone]- per conversation with Dr. Santos- if patient is unable to make this appointment due to transportation issues- patient to follow instructions below- patient is aware that it isthe preference for prevena to be removed in office -When Prevena Wound Vac lifespan alarms, please remove the wound vac dressing. Take a photo of the incision and email : [email or web address]. Then apply Optifoam dressing that is in your discharge folder. -Call for a 2-3 week follow up appointment and any questions or concerns. Verify Office location when scheduling. [phone] * Portia Sue RN - 03/18/2023 2:28 [...] prior to your surgery. Check in at waste minimization technician desk [address], [place] [address]. If Outpatient, these additional instructions apply: An adult must stay with you the whole time you are here and drive you home. An adult must stay withyou at home for 24 hours due to Anesthesia. If you have JEREMY, you are required to stay 3 hours after your surgery before we can discharge you. documented in this [facility]06-02-2023 Hospital Discharge instructions* Discharge Instructions* Colt Angelo MD - 03/20/2023 11:06 AM EDT ECF Nursing Instructions: 1)Picc Care 2)Qmon CBC,SR,Creat,CRP, fax to Dr. Angelo [phone] 3)IV ATB for 42 days 4)Call Dr. Angelo for F/C/S, N/V/D, rash, 5)F/U with Dr Angleo in 4-5 weeks 6) Call if released [...] nutrition/TPN (total parenteral nutrition) Blood products Chemotherapy terminal operations manager antibiotics Blood draws Will a PICC affect [...] DVT (Deep Vein Thrombosis): Prevention: General Info (Croatian) * Incentive Spirometer: General Info (Croatian) * Fall Prevention (Croatian) * Opioids: General Info (Croatian) * Constipation (Croatian) * PICC (Peripherally Inserted Central Catheter) (Croatian) * Antibiotics: General Info (Croatian) * rivaroxaban (Croatian) documented in this encounterGeisinger Encompass [facility] Rehabilitation [id number] Consult note* Jessica Briseno RN - 03/20/2023 11:04 AM EDTAssociated Order(s): IP CONSULT TO IV TEAM PICC Line Insertion Procedure Note Procedure: Insertion of 4 FR SL Power and PICC into right arm per hospital protocol Indications: Student Support Advisor IV therapy, Home IV therapy Insertion: Bedside [...] prevention, CLABSI, and PICC procedural information. [employer] Director Lot #: [id number] Consult note* Jessica Briseno RN - 03/20/2023 10:[address] Henderson, patient's correction officer reformatory, has okayed patient for a PICC line. [id number] History and physical note* Anusha Barber MD - 03/19/2023 11:54 AM EDT History and Physical Update ( H&P completed within the previous thirty days ) I personally reviewed the History and Physical, interviewed and examined the patient prior to surgery. No changes have occurred in the patient's condition since the History and Physical was completed. [employer] Work Phone: 1(109) 478-927106-01-2023 History and physical note* Anusha Barber MD - 03/19/2023 11:54 AM EDT History and Physical Update ( H&P completed within the previous thirty days ) I personally reviewed the History and Physical, interviewed and examined the patient prior to surgery. No changes have occurred in the patient's condition since the History and Physical was completed. documented in this encounterGeisinger Encompass Health Rehabilitation [id number] Procedure note* Anusha Barber MD - 03/19/2023 10:22 AM EDT Operative Note Patient Name: RENUKA PADRON Date of Service: March 19, 2023 Date of : 1955 Clinician: ANUSHA BARBER MD Facility: [facility] Location: [facility] PREOPERATIVE DIAGNOSIS: Left knee periprosthetic joint infection. POSTOPERATIVE DIAGNOSIS: Left knee periprosthetic joint infection. PROCEDURES PERFORMED: 1. Left knee polyethylene exchange. 2. Left knee irrigation and debridement. SURGEON: Anusha Barber MD MAIL MESSENGER CONTRACTOR: Kaur Pierre PA-C ANESTHESIA: General endotracheal anesthesia. [...] was then let down.Hemostasis was obtained. A 10-Rwandan drain was placed in the knee. The [...] the hospital and we will consult Dr. Angelo of infectious disease. We will plan for her getting a PICC line tomorrow. Disposition will depend on how she is doing with therapy and I wonder if she wants to do home health or go to a [facility] facility. Kuar Pierre PA-C, assisted with proper preoperative positioning, [...] patient. ANUSHA BARBER MD TT: 03/19/2023 15:47:00 [facility] [id number] Procedure note* Anusha Barber MD - 03/19/2023 10:22 AM EDT Operative Note Patient Name: RENUKA PADRON Date of Service: March 19, 2023 Date of : 1955 Clinician: ANUSHA BARBER MD Facility: [facility] Location: [facility] PREOPERATIVE DIAGNOSIS: Left knee periprosthetic joint infection. POSTOPERATIVE DIAGNOSIS: Left knee periprosthetic joint infection. PROCEDURES PERFORMED: 1. Left knee polyethylene exchange. 2. Left knee irrigation and debridement. SURGEON: Anusha Barber MD MAIL MESSENGER CONTRACTOR: Kaur Pierre PA-C ANESTHESIA: General endotracheal anesthesia. [...] was then let down.Hemostasis was obtained. A 10-Rwandan drain was placed in the knee. The [...] the hospital and we will consult Dr. Angelo of infectious disease. We will plan for her getting a PICC line tomorrow. Disposition will depend on how she is doing with therapy and I wonder if she wants to do home health or go to a [facility] facility. Kaur Pierre PA-C, assisted with proper [...] patient. ANUSHA BARBER MD TT: 03/19/2023 15:47:00 [facility] documented in this encounterGeisinger Encompass Health Rehabilitation [id number] Consult note* Valeriano Squires MD - 03/19/2023 7:53 AM EDT Chief complaint: [facility] - PREOPERATIVE MEDICAL RISK STRATIFICATION Patient Name : Renuka Padron Patient : 1955 Patient Admission Diagnosis : [...] Echo-Mildly reduced LV systolic function 02/24/17 Lexiscan RELATIONS MGR-mildly diminished LV systolic function with an EF [...] [facility]. Hypertension ( I [...] symptoms. HISTORY OF PRESENT ILLNESS : Vanessa Padron, 67 y.o. female presenting for preoperative medical [...] 2017 Cardiac clearance from 09/25/22; Dr. Campos PUZ-mgo-yuxlcmjyq with CPAP CKD Stage 4-baseline creat 1.04 Nephrology clearance from 09/30/22; Dr Hayden Secondary renal hyperparathyroidism GERD Chronic anemia Prediabetes [...] reaction No Previous Transfusion Related Reactions No Anabaptism Reasons To Avoid Blood Transfusions ANESTHESIA HISTORY [...] Echo-Mildly reduced LV systolic function 02/24/17 Lexiscan RELATIONS MGR-mildly diminished LV systolic function with an EF [...] 03/19/2023 CREATININE 1.10 03/19/2023 GLUCOSE 97 03/19/2023 [id number] History of Present illness Narrative* Encounter Date Complaint History Of Prese nt Illness Follow Up Left Knee Modifying Fa ctors: Previous Surgery: LK poly exchange DAC 10/02/22. Previous Surgery: LTKA 12/25/2014 Dr Pineda. Previous Surgery: RTKA 08/17/2017 Dr Pineda. Comments: Patient fell out of bed two weeks ago and landed on her knees. She went to the emergency room on 03/15/23 and [facility] said there wasn't a fracture [...] MANUEL injection within the next few days. [facility] Work Phone: 1(157) 280-234204-24-2023 Evaluation note* Encounter Date Diagnosis Assessment Notes Treatment Notes Treatment Clinical Notes Jan, Pre-diabetes (ICD-10 - R73.09) Jan,MI 40.0-44.9, adult (ICD-10 - Z68.41) Jan,Hip arthritis (ICD-10 - M16.10) Jan,nee osteoarthritis (ICD-10 - M17.9) Jan,Hypertension (ICD-10 - I10) Jan,astric bypass status for obesity (ICD-10 - Z98.84) Jan,OSA (obstructive sleep apnea) (ICD-10 - G47.33) Jan,Heart failure (ICD-10 - I50.9) Jan,Metabolic syndrome X (ICD-10 - E88.81) Jan,Medication management (ICD-10 - Z79.899) Jan,Low back derangement syndrome (ICD-10 - M53.86) [employer] Other 03-21-2023 Evaluation note* Encounter Date Diagnosis Assessment Notes Treatment Notes Treatment Clinical Notes Dec, Asthma, moderate persistent (ICD -10 - J45.40) Dec,Morbid obesity (ICD-10 - E66.01) Dec,OSA (obstructive sleep apnea) (ICD-10 - G47.33) Dec,llergic rhinitis (ICD-10 - J30.9) Dec,ERD (gastroesophageal reflux disease) (ICD-10 - K21.9) [employer] Other 03-02-2023 NoteCONSULTATION CONSULTATION DATE: 12/18/2022 HISTORY: This is a 67-year-old female who returns to the clinic for medication maintenance for her chronic left knee pain. The patient had a total knee replacement done on October 02, 2022 and this was done by Dr. Richard martinez in [place]. She, for a short time, was in [...] prescription, and she agrees with this plan.[facility] [id number] Evaluation note* Encounter Date Diagnosis Assessment Notes Treatment Notes Treatment Clinical Notes Nov, Pre-diabetes (ICD-10 - R73.09) [employer] Other 12-19-2022 History of Present illness Narrative* Brandy Mullen [...] - 10/06/2022 2:55 PM EST [facility] [place] [facility] Treatment PT Discharge Recommendations: [facility] facility placement Distance Ambulated (ft): 50 (1o10pklt, 6k52qqlt) Device: Rolling walker L Knee Flexion 0-140: [...] Rolling walker Distance Ambulated (ft) 50 Comments q90fcjo, d54woup with FWW Procedures Procedures Gait Training;Therapeutic Exercise Gait Training Gait Training Time Entry 15 Gait Training Activity 1 Gait training f55xsgl to toilet cga Gait Training Activity 2 Gait training u23jdxn after toileting task, cga Therapeutic Exercise Therapeutic [...] AM EST CM updated by Zunilda at [facility] that precert had been obtained and they were able to admit patient to facility today. CM updated patient at bedside and she was updating her insurance company to keep scheduled transport time of noon. CM has faxed HENS, discharge RX, instructions and orders to [facility]: [phone]. RX in folder: oxycodone, xarelto and zofran Discharge packet completed, will place at Nurse's Station. No further CM needs at this time. RN number for report: [phone] * Yasmin Beck PT - 10/06/2022 9:51 AM EST [facility] Discharge Recommendations: [facility] facility placement Distance Ambulated (ft): 45 Device: [...] stance time Distance Ambulated (ft) 45 Comments a60fjbp with FWW, j95vpqc with FWW after toileting AROM LLE (degrees) L Knee Flexion 0-140 0-77 Procedures Procedures Gait Training;Therapeutic Exercise Gait Training Gait Training Time Entry 15 Gait Training Activity 1 Gait with FWW b57nxzz prior to toileting cga Gait Training Activity 2 Gait with FWW u32ktog after toileting, using personal FWW Therapeutic Activity [...] that CM has spoken with admissions at [facility] and they are still awaiting precert. CM spoke with insurance transport at patient's request on patient's phone at bedside- updated that we still do not have authorization from insurance company for patient to admit to facility at this time and we will update as soon as we hear anything. CM to follow. * Julia Meredith RN - 10/06/2022 8:14 AM EST AMADO made OB call to [facility]- [phone]-spoke with Thuy in admissions- she has already sent a note to insurance [employer] this morning to check on precert status. CM has faxed updated PT and progress notes to [phone]- will update patient at bedside that we still are awaiting precert- CM to follow. * Harshad Hickey MD - 10/06/2022 7:09 AM EST [facility] - PROGRESS NOTE Patient Name : Renuka Padron Patient : 1955 Patient Admit Date : [...] in addition with additional sliding scale insulin. Kscob-fa-txik glucose results have been reviewed. 0 Lab [...] exercises. Xarelto use noted by surgeon. Awaiting [facility] home placement. This patient will be considered [...] Plan for discharge to Subacute Rehab Facility ([facility]) when cleared by PT and [...] or worsening End of Shift Summary: * Amandasarah Gorman, HOOP RIVETER - 10/05/2022 12:50 PM EST [facility] Physical Therapy Treatment PT Discharge Recommendations: [facility] facility placement Distance Ambulated (ft): 30 Device: [...] of care until patient is discharged from [facility]. Objective 10/05/22 1250 General Family/Caregiver Present No [...] PT Plan Skilled PT PT Discharge Recommendations [facility] facility placement Goals/Education Encounter Problems Encounter Problems [...] 10/04/22 Outcomes Date/Time User Outcome 10/05/22 1332 mAanda Gorman PTA Progressing Goal: Pt will ascend/descend [...] Plan for discharge to [facility]acute Rehab Facility ([facility] or [facility]) when cleared by PT and medically stable * Amanda Gorman, HOOP RIVETER - 10/05/2022 9:42 AM EST [facility] Physical Therapy Treatment PT Discharge Recommendations: [facility] facility placement Distance Ambulated (ft): 30 Device: [...] Plan of care untilpatient is discharged from [facility]. Objective 10/05/22 0942 General Family/Caregiver Present No [...] PT Plan Skilled PT PT Discharge Recommendations [facility] facility placement Goals/Education Encounter Problems Encounter Problems [...] - PROGRESS NOTE Patient Name : Renuka Padron Patient : 1955 Patient Admit Date : [...] 10/04/2022 12:36 PM EST OB call to [facility]. Per Yaz: admission is not [...] facility admissions is not in on the to check the status of precert. Pt [...] Plan for discharge to Subacute Rehab Facility ([facility] or [facility]) when cleared by PT and medically stable * Beckie Sunshine, PT - 10/04/2022 9:50 AM EST [facility] [place] [facility] Treatment PT Discharge Recommendations: [facility] facility placement DISPOSITION/PLAN: PT is recommending therapy [...] Patient received recumbent in room 226 at [facility] Please refer to OBJECTIVE assessment, TREATMENT [...] 1-2 times per day PT Discharge Recommendations [facility] facility placement Goals/Education Encounter Problems Encounter Problems (Active) Template: Physical Therapy Problem: PT Short Term Goals Dates: Start: 10/02/22 Goal: Pt will transfer with SBA. Dates: Start: 10/02/22 Expected End: 10/04/22 Outcomes Date/Time User Outcome 10/04/221728 Beckie Sunshine, PT Progressing Goal: Pt will ambulate 150 ft. with wheeled walker and SBA Dates: Start: 10/02/22 Expected End: 10/04/22 Outcomes Date/Time User Outcome 10/04/221728 Beckie Sunshine, PT Progressing Goal: Pt will demo good understanding of HEP protocol Dates: Start: 10/02/22 Expected End: 10/04/22 Outcomes Date/Time User Outcome 10/04/221728 Beckie Sunshine, RANDOLPH Progressing Goal: Pt will ascend/descend steps with CGA and LRAD Dates: Start: 10/02/22 Expected End: 10/04/22 Outcomes Date/Time User Outcome 10/04/221728 Beckie Sunshine, PT Progressing Encounter Problems (Resolved) There are [...] phone Education Comments No comments found. * jP Sparrow MD - 10/04/2022 6:01 AM EST [facility] - PROGRESS NOTE Patient Name : Renuka Padron Patient : 1955 Patient Admit Date : [...] 10/03/2022 6:11 PM EST HENS COMPLETE to [facility] * Amanda Gorman PTA - 10/03/2022 3:07 PM EST Patient sleeping soundly and did not rouse to name of knock. Will attempt again in am. * Debbie Kapadia RN - 10/03/2022 2:28 PM EST Zunilda from [facility] will accept the patient pending precert and patient updated * Meghann Angelo - 10/03/2022 12:08 PM EST 10/03/22 1208 Clinical Encounter Type Visited With Patient Time Spent 15 Minutes Type of Contact Introduction SPIRITUAL CARE ASSESSMENT Spiritual Care Assessment: Pt appropriate and coping supported by family and melinda expressed hope Spiritual Intervention: Active listening Hospitality provided [place] given Outcome: Pt shared feeling and hope Plan: PC will return at pt/family request. * Debbie Kapadia RN - 10/03/2022 11:36 AM EST Into see the patient and updated that [facility] is reviewing the referral. N * Debbie Kapadia RN - 10/03/2022 10:36 AM EST [facility] admissions called back the they do not have beds and will not until mid next week. PABLO ODONNELL Rep. Reports the patient just told her to tell me when she delivered her leg pumps [facility] in [place] and called [phone] spoke to Zunilda and she does have beds and referral faxed to her at [phone]. N Kapadia RN - 10/03/2022 9:50 AM EST Rosetta from [facility] has no beds Patient would like a referral to [facility] in [place] and called them [phone] Admissions in a meeting but they would like the referral sent to [facility] [phone] and sent. Patient will look for a 3rd choice if needed. * Amanda Gorman HOOP RIVETER - 10/03/2022 8:55 AM EST [facility] Physical Therapy Treatment PT Discharge Recommendations: [facility] facility placement Distance Ambulated (ft): 30 Device: [...] of care until patient is discharged from [facility]. Objective 10/03/22 0855 General Family/Caregiver Present No [...] 1-2 times per day PT Discharge Recommendations [facility] facility placement Goals/Education Encounter Problems Encounter Problems [...] Education Comments No comments found. * Anusha Sung, DO - 10/03/2022 8:33 AM EST [facility] - PROGRESS NOTE Patient Name : Renuka Padron Patient : 1955 Patient Admit Date : 10/02/2022 Admission Diagnosis : Postoperative Medical Comanagement Provider Name : Anusha Sung Date Of Service : 10/03/22 IMPRESSION AND [...] Plan for discharge to Subacute Rehab Facility ([facility] or [facility]) when cleared by PT and medically stable * Debbie Kapadia RN - 10/02/2022 4:34 PM EST Spoke to Rosetta in admissions at [facility] and she does not know what fax [phone] isbut her fax is [phone] and manually faxed the referral but she also does not have beds until next week She would need to look at her beds to determine what day. Currently she is helping in the cafeteria but she will review and get back with CM tomorrow. 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 ([facility]) Past Medical History: Diagnosis Date Anemia Asthma Chronic kidney disease CKD 2/3 COPD (chronic obstructive pulmonary disease) ([facility]) Diabetes mellitus ([facility]) DVT of leg (deep venous thrombosis) ([facility]) 2020 left leg GERD (gastroesophageal reflux disease) [...] of Steps 3 Prior Function Level of [place] Independent with mobility and functional transfers Receives [...] 1-2 times per day PT Discharge Recommendations [facility] facility placement Equipment Recommended WW PT - [...] Amanda Horvath PT Progressing Goal: Pt will demo good [...] none Initial Transition Plan Initial Transition Plan Alf Facility Back up Transition Plan Back up Transition plan Alf Facility Plan is SNF and requesting [facility] in [place] * Anusha Sung DO - 10/02/2022 1:34 PM EST [facility] - PROGRESS NOTE Patient Name : Renuka Padron Patient : 1955 Patient Admit Date : [...] she would like to go to [facility] in [place] at discharge. She has no one at home to help her. documented in this encounterGeisinger Encompass Health Rehabilitation HospitalOgqoed75-87-0449 Hospital course Narrative* Debbie Kapadia RN - 10/03/2022 5:58 PM EST [facility] -PT/OT Eval for Gait training, ADL'S, bed mobility, transfers, knee rom and strengthening, venous return exercises and modalities prn. Please follow surgeon's discharge instructions and prescription directions. Surgeon' discharge instructions are in patient's folder- FOLLOW SURGEON INSTRUCTION SHEETS Contact Surgeon's office with any questions/concerns [phone] -When Prevena Wound Vac lifespan alarms IN 7 DAYS FROM SURGERY please remove the wound vac dressingOR HAVE A FOLLOW UP SCHEDULED FOR 10/09/22 TO HAVE THE OFFICE REMOVE. CALL TO SCHEDULE THIS APPOINTMENT IF YOU WANT THE OFFICE TO REMOVE. Take a photo of the incision and email : [email or web address] apply Optifoam dressing that is in your discharge folder. ---A wound check will be performed at one week which can be done either by in person by scheduling a follow up visit in one week with Dr. BARBER in clinic by calling [phone], or virtually via store and forward telehealth. If you are opting for a virtual one-week wound check: 1. Please remove Prevena dressing only after therapy has completed as indicated by the device. 2. Take a photo of your wound and E-mail the photo to [email or web address] with Attn Dr. Rodas in the subject [...] or concerns. Verify Office location when scheduling. [email or web address] [phone] * Shilpi Rodriguez RN - 10/01/2022 9:36 [...] prior to your surgery. Check in at waste minimization technician desk [address] [place] [address]. If Outpatient, these additional instructions apply: An adult must stay with you the whole time you are here and drive you home. An adult must stay withyou at home for 24 hours due to Anesthesia. If you have JEREMY, you are required to stay 3 hours after your surgery before we can discharge you. 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 The refrigerator tester was [employer] . The poly locked [...] good position and alignment of the components. MAIL MESSENGER CONTRACTOR/ATTENDING PARTICIPATION: Carlos Gomez DO assisted with proper [...] MD, on 10/02/2022 12:05:48 [facility], A Member of [facility] OPERATIVE REPORT PATIENT NAME: Renuka Padron DATE OF : 1955 CSN: [id number] SURGEON: Anusha Barber MD DATE OF SERVICE: 10/02/2022 DATE OF SURGERY: 10/02/2022 REF [id number] LOT [id number] LUIS F Christinet-E 16 Millimeter Tibial insert Use By 2024-11-18 [id number] (06) [id number] (17) [id number] [facility] [id number] Procedure note* Anusha Barber MD - 10/02/2022 11:31 AM EST [facility], A Member of [facility] OPERATIVE REPORT PATIENT NAME: Renuka Padron DATE OF : 1955 CSN: [id number] SURGEON: Anusha Barber MD DATE OF SERVICE: 10/02/2022 DATE OF SURGERY: 10/02/2022 PREOPERATIVE DIAGNOSIS: Left knee arthroplasty failure, 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 The refrigerator tester was [employer] . The poly locked [...] good position and alignment of the components. MAIL MESSENGER CONTRACTOR/ATTENDING PARTICIPATION: Carlos Gomez DO assisted with proper [...] MD, on 10/02/2022 12:05:48 [facility], A Member of [employer] OPERATIVE REPORT PATIENT NAME: Renuka Padron DATE OF : 1955 CSN: [id number] SURGEON: Anusha Barber MD DATE OF SERVICE: 10/02/2022 DATE OF SURGERY: 10/02/2022 REF [id number] LOT [id number] PERSONJulio Cesar [employer]-E 16 Millimeter Tibial insert Use By 2024-11-18 [id number] (89) [id number] (95) [id number] documented in this encounterLitchfield [id number] History and physical note* Anusha Barber MD - 10/02/2022 10:29 AM EST History and Physical Update ( H&P completed within the previous thirty days ) I personally reviewed the History and Physical, interviewed and examined the patient prior to surgery. No changes have occurred in the patient's condition since the History and Physical was completed. [employer] Work Phone: 1(643) 414-883612-15-2022 History and physical note* Anusha Barber MD - 10/02/2022 10:29 AM EST History and Physical Update ( H&P completed within the previous thirty days ) I personally reviewed the History and Physical, interviewed and examined the patient prior to surgery. No changes have occurred in the patient's condition since the History and Physical was completed. 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 She is on oral vitamin D. 25 OH VD is WNL Sep,Hypertensive chronic kidney disease with stage 1 through stage 4 chronic kidney disease, or unspecified chronic kidney disease (ICD-10 - I12.9) Lisinopril was stopped because of orthostatic hypotension. She is on low-dose midodrine in additionto bumetanide 1 mg twice a day. She has no more dizziness. Sep,nemia, unspecified type (ICD-10 - D64.9)Hemoglobin > 12. Sep,Edema of extremities (ICD-10 - R60.0)Patient was advised that her edema most likely related to underlying sleep apnea and morbid obesity. Importance of salt restriction and weight loss has been addressed. Continue smae diuretic dose Sep,MI 45.0-49.9, adult (ICD-10 - Z68.42)Patient was referred to weight control clinic. Importance of weight loss has been addressed. 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 UA 3.7 Sep,therHemoglobin stable on ferrous sulfate. [employer] Other 12-01-2022 NoteCONSULTATION CONSULTATION DATE: 09/18/2022 This is a 67-year-old female who returns to the clinic for a 3-month follow-up for chronic lower back pain, left hip pain and left knee pain. She was last seen on 05/29/2022. At that time, she was in the process of having a workup from Orthopedics in [place] pending left knee and hip replacement. Today she reports that she is having a left total knee done on 10/[address] Barber in [place]. At her last appointment she was ordered [...] time for a follow-up unless otherwise indicated.[facility] [id number] Evaluation note* Encounter Date Diagnosis Assessment Notes Treatment Notes Treatment Clinical Notes Jul, Pre-diabetes (ICD-10 - R73.09) Jul,MI 40.0-44.9, adult (ICD-10 - Z68.41) Jul,Hip arthritis (ICD-10 - M16.10) Jul,Knee osteoarthritis (ICD-10 - M17.9) Jul,Hypertension (ICD-10 - I10) Jul, 2022Gastric bypass status for obesity (ICD-10 - Z98.84) 31 Jul,2CKD (chronic kidney disease) stage 3, GFR 30-59 ml/min (ICD-10 - N18.3) 31 Jul,2OSA (obstructive sleep apnea) (ICD-10 - G47.33) 31 Jul, 2022Heart failure (ICD-10 - I50.9) 31 Jul, 2022Metabolic syndrome X (ICD-10 - E88.81) 31 Jul, 2022Medication management (ICD-10 - Z79.899) 31 Jul, 2022Low back derangement syndrome (ICD-10 - M53.86) [employer] Other 09-13-2022 Evaluation note* Encounter Date Diagnosis Assessment Notes Treatment Notes Treatment Clinical Notes 13 Jun, 2022 Pre-diabetes (ICD-10 - R73.09) 13 Jun,MI 40.0-44.9, adult (ICD-10 - Z68.41) 13 Jun, 2022Gastric bypass status for obesity (ICD-10 - Z98.84) 13 Jun, 2022Knee osteoarthritis (ICD-10 - M17.9) 13 Jun, 2022Hypertension (ICD-10 - I10) 13 Jun,KD (chronic kidney disease) stage 3, GFR 30-59 ml/min (ICD-10 - N18.3) 13 Jun,SA (obstructive sleep apnea) (ICD-10 - G47.33) 13 Jun, 2022Heart failure (ICD-10 - I50.9) 13 Jun, 2022Metabolic syndrome X (ICD-10 - E88.81) 13 Jun, 2022Medication management (ICD-10 - Z79.899) [employer] Other 08-11-2022 NoteCONSULTATION CONSULTATION DATE: 05/29/2022 HISTORY [...] t.i.d., tizanidine 4 mg b.i.d., Topamax and [place] 5/325 b.i.d. She was seen by Dr. Desai, who referred her to an orthopedic high risk manager down in [place] regarding her left hip arthrosis. She is in need of a total left hip replacement, but she was sent to complete four weeks of therapy for strengthening prior to the surgery. The combination of her lower back pain and hip pain increases her pain. At rest, her pain is 4/10. With activity, it is 8-9/10. The patient feels the [place] is not as helpful as it has [...] the patient, she must bring in her [place] to be disposed of prior to starting the Percocet. She is in agreement to this. The intent is to go down to daily following her hip replacement and following lumbar rhizotomy. Patient will be brought in post procedure.[id number] Evaluation note* Encounter Date Diagnosis Assessment Notes Treatment Notes Treatment Clinical Notes May, Pre-diabetes (ICD-10 - R73.09) May,MI 40.0-44.9, adult (ICD-10 - Z68.41) May,Gastric bypass status for obesity (ICD-10 - Z98.84) May,Knee osteoarthritis (ICD-10 - M17.9) May,Hypertension (ICD-10 - I10) May,KD (chronic kidney disease) stage 3, GFR 30-59 ml/min (ICD-10 - N18.3) May,SA (obstructive sleep apnea) (ICD-10 - G47.33) May,Heart failure (ICD-10 - I50.9) May,Metabolic syndrome X (ICD-10 - E88.81) May,Medication management (ICD-10 - Z79.899) [facility] Other 07-07-2022 NoteCONSULTATION CONSULTATION DATE: 04/24/2022 This [...] total knee replacements. She was currently taking Lakeland 5/325, 1.5 mg q. day. In addition, she takes gabapentin, tizanidine and Topamax. She was on Plavix but has been taken off of that two weeks ago. The patient recently saw her PCP and he suggested that the Lakeland be increased to b.i.d. for better management [...] degenerative disk and lumbar spondylosis. PLAN: Her Lakeland will be refilled at 5/325 b.i.d. After discussion with the patient, she agrees to move forward with the lumbar epidural steroid injection with sedation only. The patient agrees to this and was educated regarding her vitamins and magnesium. She will be followed up in the clinic post-procedure. [facility] Signed and Approved by: GIULIA PICHARDO . 05/01/2022 09:48:00[facility]06-29-2022 Evaluation note* Encounter Date Diagnosis Assessment Notes Treatment Notes Treatment Clinical Notes Mar, Pre-diabetes (ICD-10 - R73.09) Mar,MI 45.0-49.9, adult (ICD-10 - Z68.42) Mar,Gastric bypass status for obesity (ICD-10 - Z98.84) Mar,Knee osteoarthritis (ICD-10 - M17.9) Mar,Hypertension (ICD-10 - I10) Mar,Hypoglycemia (ICD-10 - E16.2) Mar,KD (chronic kidney disease) stage 3, GFR 30-59 ml/min (ICD-10 - N18.3) Mar, (obstructive sleep apnea) (ICD-10 - G47.33) Mar,Heart failure (ICD-10 - I50.9) Mar,Metabolic syndrome X (ICD-10 - E88.81) Mar,Medication management (ICD-10 - Z79.899) [facility] Other 06-28-2022 Evaluation note* Encounter Date Diagnosis Assessment Notes Treatment Notes Treatment Clinical Notes Mar, Asthma, moderate persistent (ICD -10 - J45.40) Mar,Morbid obesity (ICD-10 - E66.01) Mar, (obstructive sleep apnea) (ICD-10 - G47.33) Mar,llergic rhinitis (ICD-10 - J30.9) Mar,GERD (gastroesophageal reflux disease) (ICD-10 - K21.9) [facility] Other 06-15-2022 Evaluation note* Encounter Date Diagnosis Assessment Notes Treatment Notes Treatment Clinical Notes Mar, Chronic kidney disease, stage 3a (ICD-10 - N18.31) She has mild chronic kidney disease possibly hypertensive nephrosclerosis with variable serum creatinine according to the blood pressure and volume status. Kidney function stable at baseline. Serum creatinine for visit 1.1 mg deciliter. She has no proteinuria. Lisinopril was stopped Before because of hyperkalemia and orthostatic hypotension. Serum creatinine did improve down 1.1-1.2 mg/dL off lisinopril. 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 She has CKD stage II/III. She is on oral vitamin D. We will recheck 25-hydroxy vitamin D, calcium and phosphorus and will add active vitamin D if needed. Mar,Hypertensive chronic kidney disease with stage 1 through stage 4 chronic kidney disease, or unspecified chronic kidney disease (ICD-10 - I12.9) Lisinopril was stopped because of orthostatic hypotension. She is on low-dose midodrine in additionto bumetanide 1 mg twice a day. She has no more dizziness. Mar,nemia, unspecified type (ICD-10 - D64.9)Hemoglobin stable between 11 and 12 g/dL. She still has low ferritin with no evidence of bleeding. Mar,Edema of extremities (ICD-10 - R60.0)Patient was advised that her edema most likely related to underlying sleep apnea and morbid obesity. Importance of salt restriction and weight loss has been addressed. Mar,MI 45.0-49.9, adult (ICD-10 - Z68.42)Patient was referred to weight control clinic. Importance of weight loss has been addressed. 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 I will check uric acid level next visit Mar,therHemoglobin stable on ferrous sulfate. [facility] Other 05-26-2022 Evaluation note* Encounter Date Diagnosis Assessment Notes Treatment Notes Treatment Clinical Notes February, Edema of extremities (ICD-10 - R 60.0) [facility] Other 04-20-2022 Evaluation note* Encounter Date Diagnosis Assessment Notes Treatment Notes Treatment Clinical Notes Jan, Pre-diabetes (ICD-10 - R73.09) Jan,MI 45.0-49.9, adult (ICD-10 - Z68.42) Jan,Gastric bypass status for obesity (ICD-10 - Z98.84) Jan,Knee osteoarthritis (ICD-10 - M17.9) Jan,Hypertension (ICD-10 - I10) Jan,Hypoglycemia (ICD-10 - E16.2) Jan,KD (chronic kidney disease) stage 3, GFR 30-59 ml/min (ICD-10 - N18.3) Jan,SA (obstructive sleep apnea) (ICD-10 - G47.33) 20 Apr, 2022Heart failure (ICD-10 - I50.9) Jan,Metabolic syndrome X (ICD-10 - E88.81) [facility] Other 04-11-2022 Evaluation note* Encounter Date Diagnosis Assessment Notes Treatment Notes Treatment Clinical Notes Jan, Acute right-sided thoracic back pain (ICD-10 - M54.6) [facility] Other 02-23-2022 Evaluation note* Encounter Date Diagnosis Assessment Notes Treatment Notes Treatment Clinical Notes Nov, Other chronic pain (ICD-10 - G89 .29) [facility] Other 02-15-2022 Evaluation note* Encounter Date Diagnosis Assessment Notes Treatment Notes Treatment Clinical Notes Nov, Other chronic pain (ICD-10 - G89 .29) [facility] Other 01-18-2022 Evaluation note* Encounter Date Diagnosis Assessment Notes Treatment Notes Treatment Clinical Notes Oct, Pre-diabetes (ICD-10 - R73.09) Oct,MI 45.0-49.9, adult (ICD-10 - Z68.42) Oct,Knee osteoarthritis (ICD-10 - M17.9) Oct,Gastric bypass status for obesity (ICD-10 - Z98.84) Oct,Hypertension (ICD-10 - I10) Oct,Hypoglycemia (ICD-10 - E16.2) Oct,KD (chronic kidney disease) stage 3, GFR 30-59 ml/min (ICD-10 - N18.3) Oct,SA (obstructive sleep apnea) (ICD-10 - G47.33) Oct,Heart failure (ICD-10 - I50.9) Oct,Metabolic syndrome X (ICD-10 - E88.81) [facility] Other 01-18-2022 Evaluation note* Encounter Date Diagnosis Assessment Notes Treatment Notes Treatment Clinical Notes Oct, Other chronic pain (ICD-10 - G89 .29) knee and low back pian. alloted for 1 per day, has been taking up to 3 per day but has not requested refills early. oarrs approrpaite. at initial visit discussed i wont give more than 1 per day. willrefill as oarrs is appropriate. Oct,cute right-sided thoracic back pain (ICD-10 - M54.6) will send in. Oct,Left anterior knee pain (ICD-10 - M25.562) total knee replacement 5 years ago, dr. pineda. will xray. normal knee exam. Oct,theruses for skin yeast infections, cannot say how often she uses it. [facility] Other 12-16-2021 Evaluation note* Encounter Date Diagnosis Assessment Notes Treatment Notes Treatment Clinical Notes Sep, Other chronic pain (ICD-10 - G89 .29) [facility] Other 12-08-2021 Evaluation note* Encounter Date Diagnosis Assessment Notes Treatment Notes Treatment Clinical Notes Sep, Chronic kidney disease, stage 3a (ICD-10 - N18.31) She has mild chronic kidney disease possibly hypertensive nephrosclerosis with variable serum creatinine according to the blood pressure and volume status. Calculated GFR with EPI formula consideringher elevated body mass index comes to lose to 59 to 60 mL/min. She has no proteinuria. Lisinopril was stopped because of hyperkalemia and orthostatic hypotension. Serum creatinine did improve down 1.1-1.2 mg/dL off lisinopril. Sep,econdary renal hyperparathyroidism (ICD-10 - N25.81) Intact PTH is on the high range of normal. She has CKD stage II/III. She is on oral vitamin D. We will recheck 25-hydroxy vitamin D, calcium and phosphorus and will add active vitamin D if needed. Sep,Hypertensive chronic kidney disease with stage 1 through stage 4 chronic kidney disease, or unspecified chronic kidney disease (ICD-10 - I12.9) Lisinopril was stopped because of orthostatic hypotension. She is on low-dose midodrine in additionto bumetanide 0.5 mg twice a day. She has no more dizziness. Sep,nemia, unspecified type (ICD-10 - D64.9) Hemoglobin stable between 11 and 12 g/dL. She still has low ferritin with no evidence of bleeding. Sep,dema of extremities (ICD-10 - R60.0) Patient was advised that her edema most likely related to underlying sleep apnea and morbid obesity. Importance of salt restriction and weight loss has been addressed. Handout for low-salt diet was given. Sep,MI 45.0-49.9, adult (ICD-10 - Z68.42) Patient was referred to weight control clinic. Importance of weight loss has been addressed. Sep,nemia in chronic kidney disease (ICD-10 - D63.1) Hemoglobin stable on ferrous sulfate. [facility] Other 11-18-2021 Evaluation note* Encounter Date Diagnosis Assessment Notes Treatment Notes Treatment Clinical Notes Aug, Hyperuricemia (ICD-10 - E79.0) Aug,Other chronic pain (ICD-10 - G89.29) [facility] Other 10-29-2021 Evaluation note* Encounter Date Diagnosis Assessment Notes Treatment Notes Treatment Clinical Notes Jul, Lower extremity edema (ICD-10 - R60.0) [facility] Other 10-13-2021 Evaluation note* Encounter Date Diagnosis Assessment Notes Treatment Notes Treatment Clinical Notes Jul, Other chronic pain (ICD-10 - G89 .29) Jul,cute right-sided thoracic back pain (ICD-10 - M54.6) [facility] Other 10-13-2021 Evaluation note* Encounter Date Diagnosis Assessment Notes Treatment Notes Treatment Clinical Notes Jul, Other chronic pain (ICD-10 - G89 .29) [facility] Other 10-07-2021 Evaluation note* Encounter Date Diagnosis Assessment Notes Treatment Notes Treatment Clinical Notes Jul, Hypoglycemia (ICD-10 - E16.2) Jul,Impaired fasting glucose (ICD-10 - R73.01) pt has [...] with her we will contact diabetic shoe [employer]. Jul,ower extremity edema (ICD-10 - R60.0) stopped spironolactone on her own, has an appt with cardiolgy next month. stopped it becaues of cramping. fine balance with her CKD. will increase bumex and then add low dose potassium, have her get labs in 1.5 weeks. she is in agreement. Jul,cute right-sided thoracic back pain (ICD-10 - M54.6) muscle spasm, encouraged heat, stretching, rest, muscle relaxer. Jul,Insomnia, unspecified type (ICD-10 - G47.00) she stopped her temazepam and has been off at least a month. [facility] Other 09-23-2021 Evaluation note* Encounter Date Diagnosis Assessment Notes Treatment Notes Treatment Clinical Notes Jun, Pre-diabetes (ICD-10 - R73.09) Jun,MI 45.0-49.9, adult (ICD-10 - Z68.42) Jun,Hypoglycemia (ICD-10 - E16.2) Jun,Gastric bypass status for obesity (ICD-10 - Z98.84) Jun,Hypertension (ICD-10 - I10) Jun,KD (chronic kidney disease) stage 3, GFR 30-59 ml/min (ICD-10 - N18.3) Jun,OSA (obstructive sleep apnea) (ICD-10 - G47.33) Jun,Heart failure (ICD-10 - I50.9) Jun,Metabolic syndrome X (ICD-10 - E88.81) [facility] Other 09-22-2021 Evaluation note* Encounter Date Diagnosis Assessment Notes Treatment Notes Treatment Clinical Notes Jun, Asthma, moderate persistent (ICD -10 - J45.40) Jun,Morbid obesity (ICD-10 - E66.01) Jun,OSA (obstructive sleep apnea) (ICD-10 - G47.33) Jun,llergic rhinitis (ICD-10 - J30.9) Jun,GERD (gastroesophageal reflux disease) (ICD-10 - K21.9) [facility] Other consult note* Clinical Note Date No Information [facility] Work Phone: Discharge summary* Clinical Note Date No Information [facility] Work Phone: Evaluation noteNo InformationNortWilkes-Barre [facility] Other Evaluation note* Diagnosis Onset Date Resolution Status Iron deficiency anemia chronicThrombophlebitischronic [facility] Work Phone: Evaluation note* Diagnosis Mechanical loosening of internal left knee prosthetic joint, subsequent encounter- Primary Mechanical loosening of internal left knee prosthetic joint, 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, subsequent encounter [facility]* Diagnosis S/P left knee surgery- Primary Infection and inflammatory reaction due to other internal joint prosthesis, initial encounter (CMS/HCC) Infection and inflammatory reaction due to other internal joint prosthesis, initial encounter ([facility]) [facility] noteNo assessment information availableWadsworth-Rittman [facility] Work Phone: Evaluation note* Author Yuan Romeo [facility] 2023 2:53pmPatient is stable with lack of insurance coverage for Symbicort. It appears that patient's best choice for insurance coverage of medications should be Advair Diskus. [facility] Work Phone: Evaluation note* Type Assessment Date No Information [facility] Work Phone: Evaluation note* Diagnosis Onset Date Resolution Status Admit Date Contact with and (suspected) exposure to covid-19 noneactiveJanuary 2024 12:18pm [facility] Work Phone: Evaluation note* Diagnosis Hypotension after procedure- Primary Hypotension after procedure COPD (chronic obstructive pulmonary disease) (HCC) Chronic airway obstruction, not elsewhere classified Diabetes mellitus (HCC) Type II or unspecified type diabetes mellitus without mention of complication, not stated as uncontrolled Hypertension Unspecified essential hypertension Stage 4 chronic kidney disease (HCC) [facility] Diagnosis ETD (Eustachian tube dysfunction), bilateral- Primary Ear fullness, bilateral Swollen gland Multinodular goiter (CMS/HCC) Nontoxic multinodular goiter documented [facility] encounter [facility]* Diagnosis Sensorineural hearing loss, bilateral- Primary Tinnitus, bilateral Unspecified tinnitus documented in this encounter [facility]* Diagnosis Allergic rhinitis, unspecified seasonality, unspecified trigger- Primary Sensorineural hearing loss (SNHL), bilateral Nontoxic multinodular goiter (CMS/HCC) Nontoxic multinodular goiter documented in this encounter [facility]* Diagnosis Left knee pain, unspecified chronicity- Primary Left hip pain Pain in joint, pelvic region and thigh History of total knee arthroplasty, left Primary osteoarthritis of left hip Primary localized osteoarthrosis, pelvic region and thigh Left hip pain Pain in joint, pelvic region and thigh Left knee pain, unspecified chronicity [facility] Left knee pain, unspecified chronicity [facility] Diagnosis Left hip pain Pain in joint, pelvic region and thigh [facility] Diagnosis Onset Date Resolution Status Admit Date ANS (arteriolar nephrosclerosis) acuteSept2024 1:40pmChronic kidney disease, stage 2 (mild)acute July 12, 2025 1:40pmHyperparathyroidismacuteSept2024 1:40pm HyperuricemiaacuteSept2024 1:40pmHypomagnesemiaacuteSept2024 1:40pmLocalized edemaacuteSept2024 1:40pmVitamin B12 deficiency acuteSept2024 1:40pmVitamin D deficiencyacuteSept2024 1:40pm [facility] Work Phone: History and physical note* Clinical Note Date No Information [facility] Work Phone: History general Narrative - Reported* Type Description Date Medical History sleep apnea (noncompliant with P AP therapy) Medical HistoryhypertensionMedical Historycongestive heart failureMedical HistoryCVI with h/o ulcers of LE with pain and swellingMedical Historyh/o VV's Medical HistoryBilateral varicose veinsMedical HistoryPADMedical HistoryANEMIA IN CHRONIC KIDNEY DISEASEMedical HistoryINSOMNIAMedical HistoryUNDIFFERENTIATED CONNECTIVE DISEASEMedical HistoryVITAMIN D DEFICIENCYMedical History HYPERURICEMIAMedical HistoryOSTEOARTHRITIS OF THE KNEEMedical HistoryMORBID OBESITYMedical HistoryasthmaMedical HistoryRenal failureMedical HistoryBlood clotsMedical HistoryOSAMedical HistoryEsophageal refluxSurgical History appendectomySurgical HistorytonsillectomySurgical Historygastric [id number] Surgical HistoryCaesarean sectionSurgical Historyleft knee arthroplastySurgical HistoryEVLT Right [id number] Historycolonoscopy02/2013Surgical HistoryFoot SurgerySurgical HistoryTKA12/2014Surgical Historytoenails removed02/22/2014Surgical Historycardiac catheterization02/2013Surgical HistoryTKA rt08/17/2017Surgical HistoryTENDINITIS IN LEFT FOOTSurgical HistoryUPPER GI05/2019Hospitalization HistoryappendectomyHospitalization HistorytonsillectomyHospitalization History [facility] [place] Kidney problems03/2019Hospitalization HistorysEE ABOVEHospitalization HistorypneumoniaHospitalization HistoryLeg cramps [facility] [place] dehydration06/2021 [facility] Other History general Narrative - ReportedNortWilkes-[facility]re [facility] Other History general Narrative - Reported* Type Description Date Medical History sleep apnea (noncompliant with P AP therapy) Medical HistoryhypertensionMedical Historycongestive heart failureMedical HistoryCVI with h/o ulcers of LE with pain and swellingMedical Historyh/o VV's Medical HistoryBilateral varicose veinsMedical HistoryPADMedical HistoryANEMIA IN CHRONIC KIDNEY DISEASEMedical HistoryINSOMNIAMedical HistoryUNDIFFERENTIATED CONNECTIVE DISEASEMedical HistoryVITAMIN D DEFICIENCYMedical History HYPERURICEMIAMedical HistoryOSTEOARTHRITIS OF THE KNEEMedical HistoryMORBID OBESITYMedical HistoryasthmaMedical HistoryRenal failureMedical HistoryBlood clotsMedical HistoryOSAMedical HistoryEsophageal refluxSurgical History appendectomySurgical HistorytonsillectomySurgical Historygastric [id number] Surgical HistoryCaesarean sectionSurgical Historyleft knee arthroplastySurgical HistoryEVLT Right [id number] Historycolonoscopy02/2013Surgical HistoryFoot SurgerySurgical HistoryTKA12/2014Surgical Historytoenails removed02/22/2014Surgical Historycardiac catheterization02/2013Surgical HistoryTKA rt08/17/2017Surgical HistoryTENDINITIS IN LEFT FOOTSurgical HistoryUPPER GI05/2019Surgical HistoryLt. TKA [id number]/15/2022Hospitalization HistoryappendectomyHospitalization History tonsillectomyHospitalization History[facility] [place] Kidney problems03/2019Hospitalization HistorysEE ABOVEHospitalization HistorypneumoniaHospitalization HistoryLeg cramps [facility] [place] dehydration06/2021 [facility] Other History general Narrative - Reported* Type Description Date Medical History sleep apnea (noncompliant with P AP therapy) Medical HistoryhypertensionMedical Historycongestive heart failureMedical HistoryCVI with h/o ulcers of LE with pain and swellingMedical Historyh/o VV's Medical HistoryBilateral varicose veinsMedical HistoryPADMedical HistoryANEMIA IN CHRONIC KIDNEY DISEASEMedical HistoryINSOMNIAMedical HistoryUNDIFFERENTIATED CONNECTIVE DISEASEMedical HistoryVITAMIN D DEFICIENCYMedical History HYPERURICEMIAMedical HistoryOSTEOARTHRITIS OF THE KNEEMedical HistoryMORBID OBESITYMedical HistoryasthmaMedical HistoryRenal failureMedical HistoryBlood clotsMedical HistoryOSAMedical HistoryEsophageal refluxMedical Historythyroid diseaseMedical Historychronic renal failure stage 4Medical HistoryDVTMedical Historypulmonary embolismMedical Historyvitamin B12 deficiencyMedical History gastroparesisMedical Historyvitamin D deficiencyMedical Historyallergic rhinitis Medical Historylactose intoleranceMedical HistoryhyperthyroidismMedical History OsteoarthritisMedical HistoryanemiaMedical HistorygastritisMedical History hyperuricemiaMedical HistorydiverticulosisMedical HistoryosteopeniaMedical Historycolon polypMedical HistoryinsomniaMedical Historydegenerative disc diseaseMedical HistoryGoutMedical HistoryfibromyalgiaMedical Historyemphysema Medical Historydiabetes mallitusMedical HistorypolyneuropathyMedical History fatigueMedical HistoryspondyloarthropathyMedical Historyhigh cholesterolMedical HistoryPVDMedical HistoryadoptedSurgical HistoryappendectomySurgical History tonsillectomySurgical Historygastric [id number] HistoryCaesarean section Surgical Historyleft right knee arthroplastySurgical HistoryEVLT Right [id number] Surgical Historycolonoscopy02/2013Surgical HistoryFoot SurgerySurgical HistoryTKA 12/2014Surgical Historytoenails removed02/22/2014Surgical Historycardiac catheterization02/2013Surgical HistoryTKA rt08/17/2017Surgical HistoryTENDINITIS IN LEFT FOOTSurgical HistoryUPPER GI05/2019Surgical HistoryLt. TKA REVISION 10/02/2022urgical Historybiopsy-thyroidSurgical HistorycolonoscopySurgical Historyheart catheterizationSurgical Historybariatric surgeryHospitalization HistoryappendectomyHospitalization HistorytonsillectomyHospitalization History [facility] [place] Kidney problems03/2019Hospitalization HistorysEE ABOVEHospitalization HistorypneumoniaHospitalization HistoryLeg cramps [facility] [place] dehydration06/2021 [facility] Other History general Narrative - Reported* Type Description Date Medical History sleep apnea (noncompliant with P AP therapy) Medical HistoryhypertensionMedical Historycongestive heart failureMedical HistoryCVI with h/o ulcers of LE with pain and swellingMedical Historyh/o VV's Medical HistoryBilateral varicose veinsMedical HistoryPADMedical HistoryANEMIA IN CHRONIC KIDNEY DISEASEMedical HistoryINSOMNIAMedical HistoryUNDIFFERENTIATED CONNECTIVE DISEASEMedical HistoryVITAMIN D DEFICIENCYMedical History HYPERURICEMIAMedical HistoryOSTEOARTHRITIS OF THE KNEEMedical HistoryMORBID OBESITYMedical HistoryasthmaMedical HistoryRenal failureMedical HistoryBlood clotsMedical HistoryOSAMedical HistoryEsophageal refluxMedical Historythyroid diseaseMedical Historychronic renal failure stage 4Medical HistoryDVTMedical Historypulmonary embolismMedical Historyvitamin B12 deficiencyMedical History gastroparesisMedical Historyvitamin D deficiencyMedical Historyallergic rhinitis Medical Historylactose intoleranceMedical HistoryhyperthyroidismMedical History OsteoarthritisMedical HistoryanemiaMedical HistorygastritisMedical History hyperuricemiaMedical HistorydiverticulosisMedical HistoryosteopeniaMedical Historycolon polypMedical HistoryinsomniaMedical Historydegenerative disc diseaseMedical HistoryGoutMedical HistoryfibromyalgiaMedical Historyemphysema Medical Historydiabetes mallitusMedical HistorypolyneuropathyMedical History fatigueMedical HistoryspondyloarthropathyMedical Historyhigh cholesterolMedical HistoryPVDMedical HistoryadoptedSurgical HistoryappendectomySurgical History tonsillectomySurgical Historygastric [id number] HistoryCaesarean section Surgical Historyleft right knee arthroplastySurgical HistoryEVLT Right [id number] Surgical Historycolonoscopy02/2013Surgical HistoryFoot SurgerySurgical HistoryTKA 12/2014Surgical Historytoenails removed02/22/2014Surgical Historycardiac catheterization02/2013Surgical HistoryTKA rt08/17/2017Surgical HistoryTENDINITIS IN LEFT FOOTSurgical HistoryUPPER GI05/2019Surgical HistoryLt. TKA REVISION 2Surgical Historybiopsy-thyroidSurgical HistorycolonoscopySurgical Historyheart catheterizationSurgical Historybariatric surgerySurgical Historylt total knee iffnheyt13/2022Surgical Historylt knee infection revision of knee cap 03/2023Hospitalization HistoryappendectomyHospitalization Historytonsillectomy Hospitalization HistoryFR Kidney problems03/2019Hospitalization HistorysEE ABOVEHospitalization HistorypneumoniaHospitalization HistoryLeg cramps [facility] dehydration06/2021 [employer] Other History of Present illness Narrative* Patient [...] implantable device. 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 Encarnacion * 5. I reviewed her recent lab work * 6. We will see her back in 1 year in follow-up [facility] 250 DO Work Phone: Hospital Discharge instructions* Attachments The following attachments cannot be sent through Care Everywhere. * Fall Prevention (Croatian) * DVT (Deep Vein Thrombosis): Prevention: General Info (Croatian) * Pain Medication Precautions (Croatian) * Constipation (Croatian) * Incentive Spirometer: General Info (Croatian) * Antibiotics: General Info (Croatian) documented in this encounterQu[facility] HealthInstructions* Date Instruction Additional Infor mation No Information [facility] [place] Work Phone: Progress note* Clinical Note Date No Information [facility] Work Phone: Reason for referral (narrative)* Reason For Referral No Information [facility] [employer] [facility] [place] Work Phone: Reason for referral (narrative)No reason for referral information availableW[facility] Work Phone: Reason for visit Narrative* Auth/CertSpecialty Diagnoses / ProceduresReferred By ContactReferred To Contact Diagnoses Mechanical loosening of internal left knee prosthetic joint, subsequent encounter T84.033D Procedures TX REVISION TOTAL KNEE ARTHROPLASTY WITH OR WITHOUT ALLOGRAFT 1 COMPONENT TX REVISION TOTAL KNEE ARTHROPLASTY WITH OR WITHOUT ALLOGRAFT 1 COMPONENT Left knee revision arthroplasty poly exchange Anusha Barber MD [address] [place] [address] [facility] [employer] [address] [place] [address] Referral IDStatusReasonStaptos DateExpiration DateVisits RequestedVisits [id number] [facility] for visit Narrative* Auth/CertSpecialtyDiagnoses / ProceduresReferred By ContactReferred To Contact Diagnoses Infection and inflammatory reaction due to other internal joint prosthesis, initial encounter ([facility]) T84.59XA Procedures TX INCISION & DRAINAGE ABSCESS/BURSA/HEMATOMA DEEP SOFT TISSUE THIGH/KNEE Left knee I & D Anusha Barber MD [address] [place] [address] [facility] [employer] [address] [place] [address] Referral IDStatusReasonStart DateExpiration DateVisits RequestedVisits [id number] [facility] for visit Narrative* Auth/Cert (Routine)SpecialtyDiagnoses / ProceduresReferred By ContactReferred To Contact Diagnoses Left hip pain Left hip pain [M25.552] Procedures TX ARTHROCENTESIS ASPIR&/INJ MAJOR JT/BURSA W/O US INJECTION MEDICATION-HIP INTRA-ARTICULAR INJECTION Estrella Angelo MD [facility] [place] [address] [place] [address] Phone: tel: fax: [facility] [address] [place] [address] Referral IDStatusReasonStart DateExpiration DateVisits RequestedVisits [id number] [facility] Summary Purpose Family History Unknown Family Member Name Dates Details Adopted: Other(V68.89, Z02.8 2) Status:ActiveUnknown family medical history: Other Status:Active Relationship Condition Age at Onset Recorded Date/T claire Not Specified Family history not k nown due to adoption Unknown Unknown Family Member Name Dates Details Adopted: Other(V68.89, Z02.8 2) Status:ActiveUnknown family medical history: Other Status:Active Relationship Condition Age at Onset Recorded Date/T claire Not Specified Family history not k nown due to adoption Unknown natural sonHypertensionUnknown Family Member Type Diagnosis Age At Onset No Information Relationship Condition Age at Onset Recorded Date/T claire Not Specified Family history not k nown due to adoption Unknown sonHypertensionUnknown Advance Directives Advance Directive Response Recorded Date/ Time Advance Directives No January 31, 2 019 1:51pm Code StatusDate ActivatedDate InactivatedCommentsFull Code - Auiqfyq9510/02/2022 2:16 PM10/06/2022 7:03 PMThis is order is used when code status has not been discussed with the patient, or code status is otherwise unknown/unconfirmed To update the patient's code status, place a code status order. Do not modify or discontinue any currently active code status orders. Provide all therapy to prevent/treat cardiac or respiratory arrest.Code Status Date ActivatedDate InactivatedCommentsFull Code - Default03/19/2023 3:18 PM 03/25/2023 4:47 PMThis is order is used when code status has not been discussed with the patient, or code status is otherwise unknown/unconfirmed To update the patient's code status, place a code status order. Do not modify or discontinue any currently active code status orders. Provide all therapy to prevent/treat cardiac or respiratory arrest.Code Status Date ActivatedDate InactivatedCommentsFull Code - Xmhpamp7010/02/2022 2:16 PM 10/06/2022 7:03 PMThis is order is used when code status [...] Date/ Time Advance Directives Yes January 04 1:03pm Date ActivatedDate InactivatedComments01/05/2025 6:23 AM Chief Complaint and Reason for Visit Chief Complaint DVT Obesity E11.42 R53.82 E55.9 Blood in urineReason for VisitIron deficiency anemia Thrombophlebitis Chief Complaint Obesity Chief Complaint 6 Month f/u- Asthma JEREMY GERD Allergic Rhinitis Reason for Visit Asthma Chief Complaint Admit Date Cough, Congestion October 27, 2024 12 :18pm Reason for Visit Admit Date Contact with and (suspected) exposure to covid-19 October 27, 2024 12:18pm Chief Complaint Admit Date Unknown April 11, 2025 12:0 6pm Chief Complaint Admit Date ckd 3 July 12, 2025 1:40pm Reason for Visit Admit Date ANS (arteriolar nephrosclerosis) Septemb er 2024 1:40pm Chronic kidney disease, stage 2 (mild) S eptember 2024 1:40pm Hyperparathyroidism July 12, 2025 1:40pm Hyperuricemia July 12, 2025 1:40pm Hypomagnesemia July 12, 2025 1:40pm Localized edema July 12, 2025 1:40pm Vitamin B12 deficiency July 12 1:40pm Vitamin D deficiency July 12 1:40pm Chief Complaint RENUKA PADRON is being seen for an annual follow-up of. Additional Source Comments INFORMATION SOURCE (unrecogn ized section and content) DATE CREATED AUTHOR 06/14/2018 [facility] DATE CREATED AUTHOR AUTHOR'S ORGANIZ ATION 07/09/2018 [facility] DATE CREATED AUTHOR AUTHOR'S ORGANIZ ATION 09/05/2018 [facility] DATE CREATED AUTHOR AUTHOR'S ORGANIZ ATION 12/29/2020 [facility] DATE CREATED AUTHOR AUTHOR'S ORGANIZ ATION 09/26/2022 [facility] DATE CREATED AUTHOR AUTHOR'S ORGANIZ ATION 09/26/2022 [employer] DATE CREATED AUTHOR AUTHOR'S ORGANIZ ATION 03/30/2023 [facility] DATE CREATED AUTHOR AUTHOR'S ORGANIZ ATION 06/05/2024 [facility] DATE CREATED AUTHOR AUTHOR'S ORGANIZ ATION 06/07/2024 [facility] DATE CREATED AUTHOR AUTHOR'S ORGANIZ ATION 06/09/2024 [facility] DATE CREATED AUTHOR AUTHOR'S ORGANIZ ATION 06/11/2024 [facility] DATE CREATED AUTHOR AUTHOR'S ORGANIZ ATION 07/22/2024 [facility] DATE CREATED AUTHOR AUTHOR'S ORGANIZ ATION 01/27/2025 [facility] DATE CREATED AUTHOR AUTHOR'S ORGANIZ ATION 03/17/2025 [facility] DATE CREATED AUTHOR AUTHOR'S ORGANIZ ATION 04/15/2025 [facility] DATE CREATED AUTHOR AUTHOR'S ORGANIZ ATION 05/02/2025 [facility] DATE CREATED AUTHOR AUTHOR'S ORGANIZ ATION 07/23/2025 [facility] REASON FOR VISIT (unrecogniz ed section and content) ReasonCommentsSwollen GlandsReasonCommentsThyroid NoduleFollow up ultrasound [facility] 01/24/25Ear ProblemAudio 03/14/2566JwasglFsjjnyklOsfu89 y.o. female 2007 L TKAand 2021 L TKRevsion (Dr. Barber in [place]). Had a cat scratch infection in 2022 - currently on antibiotics. C/o anterior knee pain since 2021 revision. Also c/o of L hip pain - starts in low back and wraps around to anterior thigh. PT: Yes - for knee. Smoker: No, Diabetic: No. Blood Thinner: NoSpecialty Diagnoses / ProceduresReferred By ContactReferred To ContactOrthopaedics Diagnoses Pain due to internal orthopedic prosthetic devices, implants and grafts, initial encounter Vlad Wade MD [address] [place] [address] Phone: tel: Vlad Joel MD [address] [place] [address] Phone: tel: fax: Referral IDStatusReasonStart DateExpiration DateVisits RequestedVisits [id number] Care Teams (unrecognized sec tion and content) Team Status: Active Member Role Status Dates Peter Sosa DO Primary Care Provider Active Team Status: Active Member Role Status Dates Mabel Henderson MD Attending Provider Active Star t: July 03, 2025 Team Status: Inactive Member Role Status Dates Mabel Henderson MD Attending Provider Active Star t: July 12, 2025 End: July 12, 2025Daniamador Sosa , DOPrimary Care ProviderActiveStart: July 12, 2025 End: July 12, 2025 Team Status: Inactive Member Role Status Dates Peter Sosa DO Primary Care Provider Active Start: January 05, 2024 End: January 04hrhever Romeo MDAttending ProviderActiveStart: January 05, 2024 End: January 04MEActiveStart: January 05, 2024 End: January 05, 2024 Team Status: Active Member Role Status Dates Peter Sosa DO Primary Care Provider Active Nivia Guidry ProviderActive Team Status: Inactive Member Role Status Dates Peter Sosa DO Primary Care Provider Active Deidra Lee , DEVELOPMENT COORDINATOR-BCEmergency ProviderActive Team Status: Inactive Member Role Status Dates Elda Sibley DO Primary Care Provider Active Peter Sosa DOAttending ProviderActive Team Status: Active Member Role Status Dates Colt Ndiaye MD ActiveElda Sibley DOPrimary Care ProviderActiveMary Karla Epps , APRNAttending Provider, Other ProviderActiveTeam MemberRelationshipSpecialty Start DateEnd Date Peter Sosa DO [address] [place] [address] PCP - GeneralFamily Ljiylvwm33/5/22Team MemberRelationshipSpecialtyStart DateEnd Date Peter Sosa DO [address] [place] [address] PCP - [facility] Yfnnfujd44/5/22 Name Effective Dates (start - stop) Status Members No Information Team Status: Inactive Member Role Status Dates Peter Sosa DO Primary Care Provider Active Start: October 27, 2024 End: October 27Jose Valle ProviderActiveStart: October 27, 2024 End: October 27, 2024Team MemberRelationshipSpecialtyStart DateEnd Date Unallocated, Souravs MD Antonio [address] [place] [address] PCP - [facility] Medicine12/18/23Team MemberRelationshipSpecialtyStart DateEnd Date Unallocated, Deb Alvarez MD [address] [place], [place] [address] [address] PCP - [facility]12/18/23Team MemberRelationshipSpecialtyStart DateEnd Date Unallocated, Deb Alvarez MD [address] [place] [address] PCP - [facility] Medicine12/18/23Team MemberRelationshipSpecialtyStart DateEnd Date Unallocated, Deb Alvarez MD [address] [place] [address] PCP - [facility]12/18/23Team MemberRelationshipSpecialtyStart DateEnd Date Unallocated, Deb Alvarez MD [facility] [place] [address] [address] - [facility]12/18/23Team MemberRelationshipSpecialtyStart DateEnd Date Peter Sosa MD [address] [place] [address] PCP - GeneralFamily Medicine03/17/25Team MemberRelationshipSpecialtyStart DateEnd Date Peter Sosa MD [address] [place] [address] PCP - GeneralFamily Medicine03/17/25 Team Status: Inactive Member Role Status Dates Peter Sosa DO Attending Provider Active Start: April 11, 2025 End: April 11, 2025Team MemberRelationshipSpecialtyStart DateEnd Date Peter Sosa DO [address] [place] [address] PCP - GeneralFamily Medicine04/28/25Team MemberRelationshipSpecialtyStart DateEnd Date Peter Sosa DO [address] [place] [address] PCP - Generalmily Medicine04/28/25Team MemberRelationshipSpecialtyStart DateEnd Date Unallocated, Deb Alvarez MD [address] [place] [address] PCP - GeneralFamily Medicine Peter Sosa MD [address] [place] [address] PCP - Generalmily Medicine03/17/25Team MemberRelationshipSpecialtyStart DateEnd Date Unallocated, Deb Alvarez MD [address] [place] [address] PCP - GeneralFamily Medicine Peter Sosa MD [address] [place] [address] PCP - GeneralFamily Medicine03/17/25 Goals (unrecognized section and content) Goals may be documented in a n alternate section Ordered Prescriptions (unrec ognized section and content) PrescriptionSigDispensedRefillsStart DateEnd Date clindamycin (CLEOCIN) 300 mg capsule Take 1 capsule (300 mg total) by mouth 3 (three) times a day for 10 days. 30 each / rivaroxaban (XARELTO) 10 mg tablet Take 1 tablet (10 mg total) by mouth 1 (one) time each day. Take with food. 30 each / ondansetron (ZOFRAN) 4 mg tablet Take 1 tablet (4 mg total) by mouth every 8 (eight) hours if needed for nausea or vomiting for up to 7 days. 20 tablet / oxyCODONE (ROXICODONE) 5 mg immediate release tablet Take 1-2 tablets (5-10 mg total) by mouth every 4 (four) hours if needed for moderate pain or severe pain for up to 7 days. Dx: Z96.6 Max Daily Amount: 60 mg 40 tablet acetaminophen (TYLENOL) 500 mg tablet Take 2 tablets (1,000 mg total) by mouth 3 (three) times a day for 7 days. Take every 8 hours for one week, then as needed. Do not exceed 3,000 mg daily limit. 50 tablet / rivaroxaban (XARELTO) 10 mg tablet Take 1 tablet (10 mg total) by mouth 1 (one) time each day. Take with food. Then start aspirin 81 mg tab twice daily for an additional 4 weeks. 30 each / rivaroxaban (XARELTO) 10 mg tablet Take 1 tablet (10 mg total) by mouth 1 (one) time each day for 14 days. Take with food. Then start aspirin 81 mg tab twice daily for an additional 4 weeks. 14 each / aspirin 81 mg chewable tablet Chew 1 tablet (81 mg total) 2 (two) times a day for 28 days. 1) Aspirin 81 mg, 1 tab PO BID for 6 weeks, Disp appropriate quantity. If patient is prescribed Arixtra/Lovenox/Xarelto, do not begin Aspirin until that medication is finished and then Aspirin only needs to be taken for 4 weeks. 56 each / traMADoL (ULTRAM) 50 mg tablet Take 1-2 tablets (50-100 mg total) by mouth every 6 (six) hours if needed for moderate pain for up to 7 days. Dx: Z96.6 Max Daily Amount: 400 mg 40 tablet / cephalexin (KEFLEX) 500 mg capsule Take 1 capsule (500 mg total) by mouth 3 (three) times a day for 3 doses. 3 capsule /rescriptionSigDispensedRefillsStart DateEnd Date meropenem (MERREM) 1 gram injection Infuse 2 g into a venous catheter every 8 (eight) hours. ECF Nursing Instructions: 1)Picc Care 2)Qmon CBC,SR,Creat,CRP, fax to Dr. Angelo [phone] 3)IV ATB for 42 days 4)Call Dr. Angelo for F/C/S, N/V/D, rash, 5)F/U with Dr Angelo in 4-5 weeks 6) Call if released before completing IV therapy. 252 g / rivaroxaban (XARELTO) 10 mg tablet Take 1 tablet (10 mg total) by mouth 1 (one) time each day for 28 days. Take with food. If insurance does not cover or other patient barriers exist, then change to: Lovenox 40 mg subcutaneous injection, Daily, Disp #14 28 each / oxyCODONE (ROXICODONE) 5 mg immediate release tablet Take 1-2 tablets (5-10 mg total) by mouth every 4 (four) hours if needed for moderate pain or severe pain for up to 7 days. Dx: Z96.6 Max Daily Amount: 60 mg 40 tablet /05/2023 ondansetron (ZOFRAN) 4 mg tablet Take 1 tablet (4 mg total) by mouth every 8 (eight) hours if needed for nausea or vomiting for up to 7 days. 20 tablet /05/2023 acetaminophen (TYLENOL) 500 mg tablet Take 2 tablets (1,000 mg total) by mouth 3 (three) times a day for 7 days. Take every 8 hours for one week, then as needed. Do not exceed 3,000 mg daily limit. 50 tablet traMADoL (ULTRAM) 50 mg tablet Take 1-2 tablets (50-100 mg total) by mouth every 6 (six) hours if needed for moderate pain for up to 7 days. Dx: Z96.6 Max Daily Amount: 400 mg 40 tablet aspirin 81 mg EC tablet Take 1 tablet (81 mg total) by mouth 2 (two) times a day for 28 days. 56 each rivaroxaban (XARELTO) 10 mg tablet Take 1 tablet (10 mg total) by mouth 1 (one) time each day for 14 days. Take with food. If insurance does not cover or other patient barriers exist, then change to: Lovenox 40 mg subcutaneous injection, Daily, Disp #14 14 each rescriptionSigDispense QuantityRefillsLast FilledStart DateEnd Date albuterol sulfate HFA (VENTOLIN HFA) 108 (90 Base) MCG/ACT inhaler Inhale 2 puffs into the lungs every 6 hours as needed for Wheezing 18 g albuterol (PROVENTIL) (2.5 MG/3ML) 0.083% nebulizer solution Take 3 mLs by nebulization 4 times daily as needed for Wheezing 120 each Scheduled Active and Recently Administ ered Medications (unrecognized section and content) Medication Order// acetaminophen (TYLENOL) tablet 1,000 mg 1,000 mg, oral, Every 6 hours scheduled, First dose on [place] 10/02/22 at 2100, Recovery & On Unit * 3901 (Given - Provider: Gloria Mohan RN) * 1339 (Given - Provider: Shawn Rinaldi RN) * 1711 (Given - Provider: Cindy Durand, RN) * 0022 (Given - Provider: Jn Guillory, RN) * 0551 (Given - Provider: Jn Guillory, MARIBELL) * 1248 (Not Given - Provider: Shawn Rinaldi RN - Reason: Other - Comment: tylenol max in 24 hours already given) * 1839 (Given - Provider: Shawn Rinaldi RN) * 0043 (Given - Provider: Srinivasa Olvera, RN) * 0604 (Given - Provider: Srinivasa Olvera, RN) * 1228 (Given - Provider: Brandy Mullen, RN) * 1800 (Canceled Entry - Provider: Automatic Discharge Provider - Comment: Automatically canceled at discontinue of medication order) budesonide-formoteroL (SYMBICORT) 160-4.5 mcg/actuation inhaler 2 puff 2 puff, inhalation, 2 times daily, First dose on Thu10/03/22 at 1300, Please Select Inhaler (name and strength) Patient is able to Supply: budesonide- formoterol (SYMBICORT) inhaler 160-4.5 mcg/inh, Is patient COVID 19 positive or under investigation for COVID 19 (PUI) or in a dual occupancy room? No * 0820 (Given - Provider: Opal Carter, CHRISTINA) * 2058 (Given - Provider: Karla Azevedo) * 0727 (Given - Provider: Opal Carter, MARKETING TRAFFIC COORDINATOR) * 2027 (Given - Provider: Berenice Carcamo, CHRISTINA) * 075 (Given - Provider: Alyse Jorge) gabapentin (NEURONTIN) capsule 300 mg 300 mg, oral, 3 times daily, First dose on Thu10/02/22 at 2100 * 0854 (Given - Provider: Shawn Rinaldi RN) * 1339 (Given - Provider: Shawn Rinaldi RN) * 2016 (Given - Provider: Jn Guillory, MARIBELL) * 0838 (Given - Provider: Shawn Rinaldi RN) * 1504 (Given - Provider: Shawn Rinaldi RN) * 2118 (Given - Provider: Madonna Fiore RN) * 0916 (Given - Provider: Brandy Mullen, MARIBELL) * 1435 (Given - Provider: Brandy Mullen RN) insulin lispro (HumaLOG) injection 1-6 Units 1-6 Units, subcutaneous, 3 times daily with meals, First dose on Thu10/02/22 at 1700, Indication: Total Daily Dose (TDD) less than 40 units Administer with meal and/or mealtime dose of insulin to correct high blood glucose If mealtime insulin dose not given (e.g. patient NPO or not eating), still administer correction factor for high blood glucose * 0858 (Not Given - Provider: Shawn Rinaldi RN - Reason: Order parameters not met) * 1228 (Not Given - Provider: Shawn Rinaldi RN - Reason: Order parameters not met) * 1707 (Not Given - Provider: Cindy Durand RN - Reason: Order parameters not met - Comment: BS 94) * 0748 (Not Given - Provider: Shawn Rinaldi RN - Reason: Order parameters not met) * 1143 (Not Given - Provider: Shawn Rinaldi RN - Reason: Order parameters not met) * 1819 (Not Given - Provider: Shawn Rinaldi RN - Reason: Order parameters not met) * 0755 (Not Given - Provider: Brandy Mullen RN - Reason: Order parameters not met) * 1256 (Not Given - Provider: Brandy Mullen RN - Reason: Patient/Resident/Agent refused - education provided - Comment: planned discharge) * 1700 (Canceled Entry - Provider: Automatic Discharge Provider - Comment: Automatically canceled at discontinue of medication order) midodrine (PROAMATINE) tablet 2.5 mg 2.5 mg, oral, 2 times daily, First dose on Thu10/02/22 at 2100 * 0854 (Given - Provider: Shawn Rinaldi RN) * 2016 (Given - Provider: Jn Guillory, MARIBELL) * 0838 (Given - Provider: Shawn Rinaldi RN) * 211 (Given - Provider: Madonna Fiore, MARIBELL) * 0928 (Given - Provider: Brandy Mullen RN) pantoprazole (PROTONIX) EC tablet 40 mg 40 mg, oral, 2 times daily, First dose on Thu10/02/22 at 2100, Do not crush, chew, or split. * 0854 (Given - Provider: Shawn Rinaldi RN) * 2015 (Given - Provider: Jn Guillory, RN) * 0838 (Given - Provider: Shawn Rinaldi RN) * 2117 (Given - Provider: Madonna Fiore, RN) * 0916 (Given - Provider: Brandy Mullen, MARIBELL) rivaroxaban (XARELTO) tablet 10 mg 10 mg, oral, Daily with dinner, First dose on Thu10/03/22 at 1700, Indication: VTE/PE Prophylaxis * 1711 (Given - Provider: Cindy Durand RN) * 1601 (Given - Provider: Shawn Rinaldi RN) * 1700 (Canceled Entry - Provider: Automatic Discharge Provider - Comment: Automatically canceled at discontinue of medication order) senna (SENOKOT) tablet 8.6 mg 8.6 mg (1 tablet), oral, 2 times daily, First dose on Thu10/02/22 at 2100 * 0854 (Given - Provider: Shawn Rinaldi RN) * 2015 (Given - Provider: Jn Guillory RN) * 0838 (Given - Provider: Shawn Rinaldi RN) * 2117 (Given - Provider: Madonna Fiore, RN) * 0916 (Given - Provider: Brandy Mullen, MARIBELL) sodium chloride 0.9 % flush 10 mL(Linked Group 1) 10 mL, intravenous, 2 times daily, First dose on Thu10/02/22 at 1445, Recovery & On Unit * 0858 (Given - Provider: Shawn Rinaldi, MARIBELL) * 2100 (Canceled Entry - Provider: Automatic Discharge Provider - Comment: Automatically canceled at discontinue of medication order) * 0840 (Given - Provider: Shawn Rinaldi RN) * 2143 (Given - Provider: Srinivasa Olvera, RN) * 0917 (Not Given - Provider: Brandy Mullen, [...] of the dose during or after administration) * 0854 (Given - Provider: Shawn Rinaldi, MARIBELL) * 0838 (Given - Provider: Shawn Rinaldi RN) * 0916 (Given - Provider: Brandy Mullen RN) Medication Order// lactated Ringer's infusion 100 mL/hr, intravenous, Continuous, Starting on Thu10/02/22 at 1445 Oxygen Therapy, Adult inhalation, Continuous, Starting on Thu10/02/22 at 1445, Titrate 1 lpm - 4 lpm to keep SpO2 above 90%. If flow is increased above 4 lpm, please contact the physician., Device: Nasal Cannula, Keep O2Sat Above: 90% Medication Order// acetaminophen (TYLENOL) tablet 325 mg 325 mg, oral, Every 6 hours PRN, mild pain, headaches, fever, Starting on Thu10/02/22 at 1416 albuterol 2.5 mg /3 mL (0.083 %) nebulizer solution 2.5 mg 2.5 mg, nebulization, Every 6 hours PRN, wheezing, Starting on Thu10/02/22 at 1416 albuterol HFA (6.7 g/200 puff [...] times daily PRN, indigestion, heartburn, Starting on Thu10/02/22 at 1416 bethanechol (URECHOLINE) tablet 25 mg [...] SBP >150 or DBP >100, Starting on [facility] 10/04/22 at 1128 cyclobenzaprine (FLEXERIL) tablet 10 mg 10 mg, oral, 3 times daily PRN, muscle spasms, Starting on [place] 10/02/22 at 1416 * 2015 (Given - Provider: Jn Guillory RN) [...] Every 6 hours PRN, itching, Starting on [place] 10/05/22 at 1545 * 1601 (Given - Provider: Shawn Rinaldi RN) * 2121 (Given - Provider: Madonna Fiore RN) * 0618 (Given - Provider: Srinivasa Olvera RN) * 1521 (Given - Provider: Brandy Paz, RN) glucagon injection 1 mg 1 mg, intramuscular, Once as needed, low blood sugar, severe hypoglycemia, Starting on [place] 10/02/22at 1416, For 1 dose HYDROmorphone (DILAUDID) injection 0.5 mg 0.5 mg, intravenous, Every 2 hours PRN, severe pain, For severe breakthrough pain not relieved withoral pain medication, Starting on [place] 10/02/22 at [...] pain, Starting on [place] 10/02/22 at 1416 * 0308 (Given - Provider: Gloria Mohan RN) * 1007 (Given - Provider: Shawn Rinaldi RN) * 1543 (Given - Provider: Shawn Rinaldi RN) * 2017 (Given - Provider: Jn Guillory RN) * 0022 (Given - Provider: Jn Guillory RN) * 0551 (Given - Provider: Jn Guillory RN) * 0945 (Given - Provider: Shawn Rinaldi RN) * 1601 (Given - Provider: Shawn Rinaldi RN) * 2118 (Given - Provider: Madonna Fiore RN) * 0043 (Given - Provider: Srinivasa Olvera RN) * 0922 (Given - Provider: Brandy Mullen, MARIBELL) * 1255 (Given - Provider: Brandy Mullen, MARIBELL) oxyCODONE (ROXICODONE) immediate release tablet 5 mg(Linked Group 2) 5 mg, oral, Every 4 hours PRN, moderate pain, Starting on Pina 12/15/22 at 1416 * 0308 (See Alternative - Provider: Gloria Mohan RN) * 1007 (See Alternative - Provider: Shawn Rinaldi, RN) * 1543 (See Alternative - Provider: Shawn Rinaldi, RN) * 2017 (See Alternative - Provider: Jn Guillory, RN) * 0022 (See Alternative - Provider: Jn Guillory, RN) * 0551 (See Alternative - Provider: Jn Guillory, RN) * 0945 (See Alternative - Provider: Shawn Rinaldi, RN) * 1601 (See Alternative - Provider: Shawn Rinaldi RN) * 2118 (See Alternative - Provider: Madonna Fiore RN) * 0043 (See Alternative - Provider: Srinivasa Olvera, RN) * 0922 (See Alternative - Provider: Brandy Mullen, RN) * 1255 (See Alternative - Provider: Brandy Mullen RN) [...] sleep, Starting on Pina 10/02/22 at 1416 Order Group 1: Insert peripheral IV (CANCELED) [...] pain, Starting on Pina 10/02/22 at 1416 Medication Order/////04/2023 acetaminophen (TYLENOL) tablet 975 mg 975 mg, oral, Every 8 hours, First dose on Thu03/19/23 at 2200 * 0540 (Given - Provider: Kendal Wong RN) * 1353 (Given - Provider: Dora Cha RN) * 2236 (Given - Provider: Pavan Linton RN) * 0930 (Given - Provider: Charline Loera RN) * 1442 (Given - Provider: Charline Loera RN) * 2241 (Given - Provider: Gloria Mohan, MARIBELL) * 0502 (Given - Provider: Gloria Mohan, MARIBELL) * 1326 (Given - Provider: Jocelyn Muller, MARIBELL) allopurinoL (ZYLOPRIM) tablet 200 mg 200 mg, oral, Daily, First dose on Thu03/20/23 at 0900 * 0822 (Given - Provider: Dora Cha RN) * 0931 (Given - Provider: Charline Loera RN) * 0920 (Given - Provider: Jocelyn Muller RN) budesonide-formoteroL [...] or in a dual occupancy room? No * 0740 (Given - Provider: Alyse Jorge) * 2039 (Given - Provider: Berenice Carcamo, CHRISTINA) * 07 (Given - Provider: Alyse Jorge) * 2145 (Given - Provider: Nory Khan, MARKETING TRAFFIC COORDINATOR) * 0806 (Given - Provider: Nicole Ku) bumetanide (BUMEX) tablet 1 mg 1 mg, oral, 2 times daily, First dose on Thu03/20/23 at 0900, Regarding Diuretics - Hold if SBP <110 ; Plan to start POD#1 * 0824 (Not Given - Provider: Dora Cha RN - Reason: Patient/Resident/Agent refused - education provided ) * 2032 (Not Given - Provider: Pavan Linton RN - Reason: Patient/Resident/Agent refused - education provided ) * 0931 (Given - Provider: Charline Loera RN) * 2016 (Not Given - Provider: Gloria Mohan RN - Reason: Patient/Resident/Agent refused - education provided ) * 0920 (Given - Provider: Jocelyn Muller, MARIBELL) docusate sodium (COLACE) capsule 100 mg 100 mg, oral, 2 times daily, First dose on Thu03/19/23 at 2100 * 0822 (Given - Provider: Dora Cha RN) * 2030 (Given - Provider: Pavan Linton, RN) * 09 (Given - Provider: Charline Loera, MARIBELL) * 2017 (Given - Provider: Gloria Mohan RN) * 0910 (Not Given - Provider: Jocelyn Muller RN - Reason: Patient/Resident/Agent refused - education provided ) gabapentin (NEURONTIN) capsule 300 mg 300 mg, oral, 3 times daily, First dose on Thu03/19/23 at 2100 * 0822 (Given - Provider: Dora Cha RN) * 1353 (Given - Provider: Dora Cha RN) * 2030 (Given - Provider: Pavan Linton, RN) * 09 (Given - Provider: Charline Loera RN) * 144 (Given - Provider: Charline Loera RN) * 2017 (Given - Provider: Gloria Mohan RN) * 0920 (Given - Provider: Jocelyn Muller RN) * 1325 (Given - Provider: Jocelyn Muller RN) magnesium hydroxide (MILK OF MAGNESIA) 400 mg/5 mL suspension 30 mL 30 mL, oral, Daily, First dose on Thu03/20/23 at 0900 * 0822 (Not Given - Provider: Dora Cha RN - Reason: Patient/Resident/Agent refused - education provided ) * 0927 (Given - Provider: Charline Loera RN) * 0910 (Not Given - Provider: Jocelyn Muller RN - Reason: Patient/Resident/Agent refused - education provided ) magnesium oxide (MAG-OX) tablet 400 mg 400 mg, oral, Nightly, First dose on Thu03/19/23 at 2100 * 2030 (Given - Provider: Pavan Linton, RN) * 2017 (Given - Provider: Gloria Mohan RN) meropenem (MERREM) 1 g in sodium chloride 0.9 % 100 mL IVPB - MBP 1 g, intravenous, at 200 mL/hr, Administer over 30 Minutes, Every 8 hours, First dose on Thu03/20/23at 1700, For 21 doses, Mini-Bag Plus bag, Indication: Skin/Soft Tissue, Bone/Joint, Authorizing ID:Infectious Disease Physician/Fellow * 0101 (New Bag - Provider: Kendal Wong RN) * 0822 (New Bag - Provider: Dora Cha RN) * 1626 (New Bag - Provider: Dora Cha RN) * 0108 (New Bag - Provider: Pavan Linton RN) * 0936 (New Bag - Provider: Brandy Mullen RN - Comment: martin Elias RN) * 1623 (New Bag - Provider: Charline Loera, MARIBELL) * 0003 (New Bag - Provider: Gloria Mohan RN) * 0920 (New Bag - Provider: Jocelyn Muller RN) pantoprazole (PROTONIX) EC tablet 40 mg 40 mg, oral, 2 times daily, First dose on Thu03/19/23 at 2100, Do not crush, chew, or split. * 0822 (Given - Provider: Dora Cha RN) * 2030 (Given - Provider: Pavan Linton, MARIBELL) * 0930 (Given - Provider: Charline Loera RN) * 2017 (Given - Provider: Gloria Mohan, MARIBELL) * 0920 (Given - Provider: Jocelyn Muller, MARIBELL) polyethylene glycol (MIRALAX) packet 17 g 17 g, oral, Nightly, First dose on Thu03/19/23 at 2100 * 2032 (Not Given - Provider: Pavan Linton RN - Reason: Patient/Resident/Agent refused - education provided ) * 2018 (Not Given - Provider: Gloria Mohan RN - Reason: Patient/Resident/Agent refused - education provided ) rivaroxaban (XARELTO) tablet 10 mg 10 mg, oral, Daily with dinner, First dose on Thu03/20/23 at 1700, For 14 days, Recovery & On Unit, Indication: VTE/PE Prophylaxis * 1624 (Given - Provider: Dora Cha RN) * 1639 (Given - Provider: Charline Loera RN) senna (SENOKOT) tablet 8.6 mg 8.6 mg (1 tablet), oral, 2 times daily, First dose on Thu03/19/23 at 2100 * 0822 (Not Given - Provider: Dora Cha RN - Reason: Patient/Resident/Agent refused - education provided ) * 2030 (Given - Provider: Pavan Linton RN) * 0930 (Given - Provider: Charline Loera RN) * 2017 (Given - Provider: Gloria Mohan RN) * 0911 (Not Given - Provider: Jocelyn Muller RN - Reason: Patient/Resident/Agent refused - education provided ) sodium chloride 0.9 % flush 10 mL(Linked Group 1) 10 mL, intravenous, 2 times daily, First dose on Thu03/19/23 at 2100, Recovery & On Unit * 0823 (Given - Provider: Dora Cha RN) * 2032 (Not Given - Provider: Pavan Linton RN - Reason: Other - Comment: fluids running) * 0930 (Given - Provider: Charline Loera RN) * 2017 (Given - Provider: Gloria Mohan RN) * 0920 (Given - Provider: Jocelyn Muller RN) sodium chloride 0.9 % flush 10 mL 10 mL, intravenous, Every 8 hours, First dose on Thu03/20/23 at 1130, All lumens before and after use and as necessary. * 0101 (Given - Provider: Kendal Wong, MARIBELL) * 1056 (Given - Provider: Dora Cha, MARIBELL) * 2032 (Not Given - Provider: Pavan Linton, MARIBELL - Reason: Other - Comment: fluids running) * 413 (Not Given - Provider: Pavan Linton RN - Reason: Other - Comment: fluids running) * 1136 (Given - Provider: Charline Loera RN) * 2018 (Not Given - Provider: Gloria Mohan RN - Reason: Patient/Resident/Agent refused - education provided ) * 0003 (Given - Provider: Gloria Mohan RN) * 110 (Pump Refill - Provider: Jocelyn Muller RN) [...] of the dose during or after administration) * 2030 (Given - Provider: Pavan Linton, MARIBELL) * 2017 (Given - Provider: Gloria Mohan RN) Medication Order// sodium chloride 0.9 % infusion 100 mL/hr, intravenous, Continuous, Starting on Thu03/19/23 at 1700, Saline well in AM POD#1 at 0800AM * 1632 (New Bag - Provider: Dora Cha, MARIBELL) Medication Order///04/2023 acetaminophen (TYLENOL) tablet 650 mg 650 mg, oral, Every 6 hours PRN, mild pain, fever, Starting on Thu03/19/23 at 1631 albuterol 2.5 mg /3 mL (0.083 %) nebulizer solution 2.5 mg 2.5 mg, nebulization, Every 6 hours PRN, wheezing, Starting on Thu03/19/23 at 1631 aluminum-magnesium hydroxide-simethicone (MAALOX) 200-200-20 mg/5 mL suspension 30 mL 30 mL, oral, 4 times daily PRN, indigestion, heartburn, Starting on Thu03/19/23 at 1631 bethanechol (URECHOLINE) tablet 25 mg 25 mg, oral, 3 times daily PRN, bladder spasms, or Urinary Retention, Starting on Thu03/19/23 at 1631 bisacodyL (DULCOLAX) suppository 10 mg 10 mg, rectal, Daily PRN, constipation, If patient not passing flatus or feeling constipated, Starting on Thu03/19/23 at 1631 cloNIDine (CATAPRES) tablet 0.1 mg 0.1 mg, oral, Every 6 hours PRN, high blood pressure, For SBP > 180 or DBP > 100, Starting [facility] 03/19/23 at 1631 diphenhydrAMINE (BENADRYL) capsule 25 mg 25 mg, oral, Every 4 hours PRN, itching, Starting on Thu03/19/23 at 1631 * 1054 (Given - Provider: Dora Cha RN) * 0900 (Given - Provider: Charline Loera, MARIBELL) * 1841 (Given - Provider: Charline Loera RN) diphenhydrAMINE (BENADRYL) injection 25 mg 25 mg, intravenous, Every 6 hours PRN, itching, Starting on Thu03/19/23 at 1631 HYDROmorphone (DILAUDID) injection 0.5 mg 0.5 mg, intravenous, Every 2 hours PRN, severe pain, For severe breakthrough pain if oral pain medication not effective, Starting on Thu03/19/23 at 1631 naloxone (NARCAN) injection 0.4 mg [...] moderate pain, Starting on Thu03/20/23 at 0641 * 0109 (See Alternative - Provider: Kendal Wong RN) * 0540 (See Alternative - Provider: Kendal Wong RN) * 1054 (See Alternative - Provider: Dora Cha RN) * 1624 (See Alternative - Provider: Dora Cha RN) * 203 (See Alternative - Provider: Pavan Linton, MARIBELL) * 0423 (See Alternative - Provider: Pavan Linton RN) * 1034 (Given - Provider: Charline Loera RN) * 1843 (Given - Provider: Charline Loera RN) * 224 (See Alternative - Provider: Gloria Mohan RN) * 0421 (See Alternative - Provider: Gloria Mohan RN) * 0921 (See Alternative - Provider: Jocelyn Muller RN) * 1325 (See Alternative - Provider: Jocelyn Muller RN) oxyCODONE (ROXICODONE) immediate release tablet 20 mg(Linked Group 2) 20 mg, oral, Every 4 hours PRN, severe pain, Starting on Thu03/20/23 at 0641 * 0109 (Given - Provider: Kendal Wong RN) * 0540 (Given - Provider: Kendal Wong RN) * 1054 (Given - Provider: Dora Cha RN) * 1624 (Given - Provider: Dora Cha RN) * 2030 (Given - Provider: Pavan Linton, MARIBELL) * 0423 (Given - Provider: Pavan Linton, MARIBELL) * 1034 (See Alternative - Provider: Charline Loera RN) * 1843 (See Alternative - Provider: Charline Loera RN) * 224 (Given - Provider: Gloria Mohan RN) * 0421 (Given - Provider: Gloria Mohan RN) * 0921 (Given - Provider: Jocelyn Muller RN) * 1325 (Given - Provider: Jocelyn Muller RN) Oxygen Therapy, Adult inhalation, As needed, shortness of breath, Titrate 2 - 4 L/min to keep Oxygen Sat > 90% ; Contact if patient requiring > 4L/min, Starting on Thu03/19/23 at 1631, Device: Nasal Cannula, Rate in [...] sleep, Starting on Pina 03/19/23 at 1631 Order Group 1: Insert peripheral IV (CANCELED) STAT, Once, On Pina 03/19/23 at 1507, For 1 occurrence
Recovery & On Unit And Maintain IV access (CANCELED) Until discontinued, Starting on Pina 03/19/23 at 1507, Until Specified
Recovery & On Unit And Saline lock IV (CANCELED) Routine, Once, On Pina 03/19/23 at 1507, For 1 occurrence
When tolerating PO fluids, Recovery& On Unit And sodium chloride 0.9 % [...] severe pain, Starting on Thu03/20/23 at 0641 Medication Order acetaminophen (TYLENOL) tablet 650 mg (COMPLETED) 650 mg, Oral, ONCE, 1 dose, On Thu01/05/25 at 0645, Maximum dose of acetaminophen is 4000 mg from all sources in 24 hours., Pre-op (day of surgery) * 0647 (Given - Provider: Ghazala Espana RN) allopurinol (ZYLOPRIM) tablet 200 mg 200 mg, Oral, DAILY, First dose on Thu01/05/25 at 1345, Until Discontinued * 1542 (Given - Provider: Brenda Vizcaino RN) * 0802 (Given - Provider: Rocío Aguero, MARIBELL) bumetanide (BUMEX) tablet 1 mg 1 mg, Oral, 2 TIMES DAILY, First dose on Thu01/05/25 at 1345, Until Discontinued, On hold since Thu01/05/2025 at 1325 until manually unheld * 1325 (Held by provider - Provider: Danika Prince, DIANE - TECHNICAL ACCOUNT MANAGER - Reason: Other) * 1345 (Automatically Held) * 2100 (Automatically Held) * 0900 (Automatically Held) * 2100 (Automatically Held) cetirizine (ZYRTEC) tablet 10 mg 10 mg, Oral, DAILY, First dose on Thu01/05/25 at 1430, Until Discontinued * 1544 (Given - Provider: Brenda Vizcaino RN) * 0803 (Given - Provider: Rocío Aguero RN) dextromethorphan-guaiFENesin (MUCINEX DM) 30-600 MG per extended release tablet 1 tablet 1 tablet, Oral, 2 TIMES DAILY, First dose on Thu01/06/25 at 0900, Until Discontinued, Do not crush or break. * 0801 (Given - Provider: Rocío Aguero RN) * 2100 (Due) dimenhyDRINATE (DRAMAMINE) tablet 50 mg (COMPLETED) 50 mg, Oral, ONCE, 1 dose, On Pina 01/05/25 at 0645, Pre-op (day of surgery) * 0647 (Given - Provider: Ghazala Espana RN) [...] then do not change the ordered frequency. * 1541 (Given - Provider: Brenda Vizcaino RN) * 2109 (Given - Provider: Marilyn Weinstein RN) * 0801 (Given - Provider: Rocío Aguero RN) * 2100 (Due) gabapentin (NEURONTIN) capsule 300 mg (COMPLETED) 300 mg, Oral, ONCE, 1 dose, On Pina 01/05/25 at 0645, Pre-op (day of surgery) * 0647 (Given - Provider: Ghazala Espana RN) gabapentin (NEURONTIN) capsule 300 mg 300 mg, Oral, 3 TIMES DAILY, First dose on Pina 01/05/25 at 1400, Until Discontinued * 1543 (Given - Provider: Brenda Vizcaino RN) * 2059 (Given - Provider: Marilyn Weinstein RN) * 0802 (Given - Provider: Rocío Aguero RN) * 1400 (Due) * 2100 (Due) magnesium oxide (MAG-OX) tablet 400 mg 400 mg, Oral, DAILY, First dose on Pina 01/05/25 at 1345, Until Discontinued * 1825 (Given - Provider: Marilyn Weinstein RN) * 2200 (Due) pantoprazole (PROTONIX) tablet 40 mg 40 mg, Oral, 2 times daily, First dose on Pina 01/05/25 at 1400, Until Discontinued, Do not crush or break. * 1542 (Given - Provider: Brenda Vizcaino RN) * 1931 (Not Given - Provider: Marilyn Wuescher, RN - Reason: Patient/family refused) * 0802 (Given - Provider: Rocío Aguero RN) * 2100 (Due) polycarbophil (FIBERCON) tablet 625 mg 625 mg, Oral, 2 TIMES DAILY, First dose on Pina 01/05/25 at 1400, Until Discontinued * 1548 (Not Given - Provider: Brenda Vizcaino RN - Reason: Patient/family refused) * 2103 (Given - Provider: Marilyn Weinstein RN) * 0801 (Given - Provider: Rocío Aguero RN) * 2100 (Due) tiZANidine (ZANAFLEX) tablet 4 mg 4 mg, Oral, NIGHTLY, First dose on Pina 01/05/25 at 2230, Until Discontinued * 2259 (Given - Provider: Marilyn Weinstein RN) * 2100 (Due) topiramate (TOPAMAX) tablet 200 mg 200 mg, Oral, 2 TIMES DAILY, First dose on Pina 01/05/25 at 1400, Until Discontinued, It is not recommended to crush, break, or chew immediate release tablets due to bitter taste. * 1542 (Given - Provider: Brenda Vizcaino RN) * 2102 (Given - Provider: Mariyln Weinstein RN) * 0802 (Given - Provider: Rocío Aguero RN) * 2100 (Due) Medication Order/ 0.9 % sodium chloride infusion (CANCELED) IntraVENous, at 100 mL/hr, CONTINUOUS, Starting on Pina 01/05/25 at 1345 * 1539 (New Bag - Provider: Brenda Vizcaino RN) * 0359 (New Bag - Provider: Marilyn Weinstein RN) * 1004 (Stopped - Provider: Rocío Aguero RN) lactated ringers infusion (CANCELED) IntraVENous, at 100 mL/hr, CONTINUOUS, Starting on Pina 01/05/25 at 0645, Pre-op (day of surgery) * 0731 (New Bag - Provider: DIANE Ibarra CRNA) * 0742 (Stopped - Provider: DIANE Ibarra CRNA) Medication Order/ albuterol sulfate HFA (PROVENTIL;VENTOLIN;PROAIR) 108 (90 Base) MCG/ACT inhaler 2 puff 2 puff, Inhalation, EVERY 6 HOURS PRN, Starting on Pina 01/05/25 at 1322, Until Discontinued, Wheezing, Initiate RT Bronchodilator Protocol: Yes - Inpatient Protocol BUPivacaine (MARCAINE) 0.5 % injection (CANCELED) PRN, Starting on Pina 01/05/25 at 0752, Until Thu01/05/25 at 0753, Intra-op * 0752 (Given - Provider: Estrella Angelo MD) docusate sodium (COLACE) capsule 100 mg 100 mg, Oral, 2 TIMES DAILY PRN, Starting on Pina 01/05/25 at 1322, Until Discontinued, Constipation,Do not crush or break. 1st line therapy for constipation guaiFENesin-codeine (guaiFENesin AC) 100-10 MG/5ML liquid 5 mL 5 mL, Oral, EVERY 6 HOURS PRN, Starting on Thu01/06/25 at 0650, Until Discontinued, Cough, Congestion iohexol (OMNIPAQUE 240) IV/PO solution (CANCELED) PRN, Starting on Thu01/05/25 at 0751, Until Pina 01/05/25 at 0753, Intra-op * 0751 (Given - Provider: Estrella Angelo MD) oxyCODONE (ROXICODONE) immediate release tablet 5 [...] on Thu01/05/25 at 2100, Until Discontinued, Sleep * 2103 (Given - Provider: Marilyn Weinstein RN) triamcinolone acetonide (KENALOG) injection (CANCELED) PRN, Starting on Thu01/05/25 at 0751, Until Pina 01/05/25 at 0753, Intra-op * 0751 (Given - Provider: Estrella Angelo MD) FOR RECORDS PERTAINING TO PATIENTS WHO [...] BE BASED ON THE PRIMARY CLINICAL RECORDS. [facility]. provides no warranty or guarantee of the accuracy or completeness of information in this document.
== END 2025-08-29 14:01 | disposition home or self-care (01) ==
LOC: MN 14:01
PROVIDERS: PCP Family Medicine
DX: E66.01 Morbid (severe) obesity due to excess calories (principal)
CPT/HCPCS: 97802

== ENCOUNTER 2025-08-30 07:51 | Outpatient (OUT) | payer MEDICARE, MEDICAID, SELFPAY ==
--- OUTSIDE RECORDS SUMMARY | 2025-02-20 06:45 | XMS_ITS ---
Author Organization [facility] [place] Address [address] [place] [address] Care Team Providers Care Injection Wax Molder Name Role Phone Conrad Sosa Primary Care Provider REASON FOR VISIT -2 Month Follow Up- Encounters Encounter Location Date Provider Diagnosis [facility] [address] [place] [address] 02/20/2025 Conrad Sosa Plan Of Treatment Next Appt Details Provider Name:Conrad batres, 09/08/2025 10:45:00 AM, [address] [place], [address], Progress Notes * Doris GRAHAMOB:1955 ( 70 yo F)Acc No.[id number]:02/20/2025 UNLOCKED PROGRESS NOTE Established Patient: Renuka FRENCH :?[place] RussellOB:1955???Age:69 Y ???Sex:FemaleDate:02/20/2025Phone:[phone]:[address] [place] [id number] Subjective: * Chief Complaints: * 1 . -2 Month Follow Up-. * Medical History: Objective: * Vitals: Assessment: Plan: * Treatment: * * Electronic signature of Conrad Sosa DO, [id number] on 08/30/2025 at 07:56 AM ESTSign off status: PendingVisit Status:?R/S (Rescheduled) * Provider: Susi Sosa DO Date: 0 02/20/2025 Generated for Printing/Faxing/eTransmitting on:?08/30/2025 07:56 AM EST
--- OUTSIDE RECORDS SUMMARY | 2025-08-17 06:30 | XMS_ITS ---
Author Organization [facility] Address [address] [place] [address] Care Team Providers Care Group Exercise Class Instructor Name Role Phone Conrad Sosa Primary Care Provider Allergies Allergen (clinical drug ingredient) Drug/Non Drug Allergy documented on EMR Reaction Allergy Type Onset Date Status aspirin Aspirin anaphylaxis Drug Allergy ActiveSubstance with sulfonamide structure and antibacterial mechanism of action (substance)Sulfa AntibioticsUnknownDrug AllergyActivePenicillinUnknownDrug AllergyActive Reason For Referral Reason obesity Diagnosis 1 Morbid (severe) obes ity due to excess calories (E66.01) Referral Organization [facility] Referring Provider First Name Conrad Referring Provider Last Name Ian Referring Provider Speciality Family Med icine Referred Provider [facility], Development Mgr Referred Provider Specialty Dietitian General Notes Conrad Sosa 09:40:55 PM >please call pt for appt Referral Priority Routine REASON FOR VISIT body pain Medications Medication SIG (Take, Route, Frequency, Duration) Notes Start Date End Date Status oxyCODONE-Acetaminophen 5-325 MG 1 table t as needed Orally bid; Duration: 30 days 5ActiveOndansetron HCl 4 MG1 tablet Orally tid prn N; Duration: 30 days 5ActivePantoprazole Sodium 40 MGTAKE 1 TABLET BY MOUTH TWICE A DAY; Duration: 90ActiveOndansetron 4 MG1/2-1 tablet on the tongue and allow to dissolve Orally Q8 hours/PRN nausea; Duration: 30 daysPRNActiveMiraLax 17 GM/SCOOP1/2 scoop Orally daily; Duration: 30 days5ActiveFluticasone Propionate 50 MCG/ACT2 sprays Nasally Twice a day/PRN; Duration: 30 daysPRN ActiveFluconazole 100 MG1 tablet Orally daily; Duration: 10 5Active hydrOXYzine HCl 10 MG1-2 tablets Orally every 6 hrs prn; Duration: 30 daysActive Gabapentin 300 MGTAKE ONE CAPSULE BY MOUTH THREE TIMES A DAY; Duration: 90Active Magnesium Oxide -Mg Supplement 500 MGTAKE 1 CAPSULE BY MOUTH EVERYDAY AT BEDTIME ActiveCyanocobalamin 1000 MCG/ML1 mL Injection SQ qmonth; Duration: 30 days ActiveBumetanide 1 MGTAKE 1 TABLET BY MOUTH TWICE A DAY FOR 90 DAYS; Duration: 90ActiveFiberCon 625 MG2 tablets as needed Orally Three times a day; Duration: 90 daysActiveDicyclomine HCl 20 MG1 tablet Orally Three times a day; Duration: 90 days3ActiveAllopurinol 100 MGTAKE 2 TABLETS BY MOUTH DAILY; Duration: 90ActivePlavix 75 MG1 tablet Orally Once a dayUnknownSymbicort 160-4.5 MCG/ACT2 puffs Inhalation Twice a dayUnknownAlbuterol Sulfate (2.5 MG/3ML) 0.083%3 mL as needed Inhalation every 6 hrs; Duration: 30 11/04/2024tive Alendronate Sodium 70 mgTAKE ONE TABLET BY MOUTH ONCE WEEKLY; Duration: 84Active Albuterol Sulfate HFA 108 (90 Base) MCG/ACTINHALE 2 PUFFS EVERY 6 HOURS NEEDED; Duration: 25ActiveFluticasone-Salmeterol 232-14 MCG/ACT2 puffs Inhalation Twice a day; Duration: 30 daysPRNUnknownTopiramate 200 MGTAKE 1 TABLET BY MOUTH TWICE A DAY FOR 30 DAYS; Duration: 30ActiveVitamin D (Ergocalciferol) 1.25 MG (83979 UT)1 capsule Orally qweek09/16/2024ctiveFerrous Sulfate 325 (65 Fe) MG1 tablet Orally Once a dayUnknownDULoxetine HCl 30 MG1 capsule Orally Once a dayUnknownPhentermine HCl 37.5 MG1 tablet before breakfast Orally Once a day; Duration: 30 days2868AsxneePzginsedyMnqdjnQjtWMIB76-5cs ActivetiZANidine HCl 4 MGTAKE 2 TABLETS BY MOUTH TWICE DAILY; Duration: 30Active Social History Tobacco Use: Social History Observation Description Date Details (start date - stop date) Never Smoker NA - NA Tobacco Use/Smoking Question Answer Notes Patient is a nonsmoker Vital Signs Weight 209.5 lbs 08/17/2025 Height 63 in 08/17/2025 Blood pressure systolic 152 mm Hg 08/17/20 25 Blood pressure diastolic 90 mm Hg 025 Heart Rate 74 /min 08/17/2025 Respiratory Rate 16 /min 08/17/2025 BMI 37.11 kg/m2 08/17/2025 Oximetry 94 % 08/17/2025 Procedures Procedure Date Ordered Date Performed Result Body Sit e CARDIO Stress Test - Lexiscan Nuclear 08/17/2025 N/A Encounters Encounter Location Date Provider Diagnosis [facility] [address] [place] [address] 08/17/2025 Conradamador Sosa Chest pain, unspecified R07.9 ; Morbid (severe) obesity due to excess calories E66.01 ; Body mass index [BMI] 37.0-37.9, adult Z68.37 and Essential (primary) hypertension I10 Assessments Encounter Date Diagnosis (ICD Code) Assessment Notes Treatment Notes Treatment Clinical Notes Section Notes 08/17/2025 Chest pain, unspecified (ICD-10 - R07.9) ER if worsens stress test to r/o ischemia ?BP related - see below 08/17/2025Morbid (severe) obesity due to excess calories (ICD-10 - E66.01) diet//30/2025ody mass index [BMI] 37.0-37.9, adult (ICD-10 - Z68.37) 08/17/2025Essential (primary) hypertension (ICD-10 - I10) bp check daily goal <130/80 diet/exercise uncontrolled - rec medication Plan Of Treatment Treatment Notes Assessment Notes Chest pain, unspecified ER if worsens stress test to r/o ischemia ?BP related - see below Morbid (severe) obesity due to excess calories diet/exercise Essential (primary) hypertension bp check daily goal <130/80 diet/exercise uncontrolled - rec medication Pending Test Test Name Order Date CARDIO Stress Test - Lexiscan Nuclear Referrals Referral Date Details 08/17/2025 08/17/2025, obesity, Development Mgr [facility] Next Appt Details Provider Name:Conrad Joseph medardo, 09/08/2025 10:45:00 AM, [address] [place], [address], Progress Notes * Doris GRAHAMOB:1955 ( 70 yo F)Acc No.[id number]:08/17/2025 Established Patient: Renuka FRENCH :?Conrad Sosa, DODOB:1955???Age:70 Y ???Sex:FemaleDate:08/17/2025Phone:[phone]:[address] [place] [id number] In:11:29 AM ESTCheck Out:12:30 PM EST Subjective: * Chief Complaints: * B tyler pain * HPI: ???General:?Patient presents today for body pain.-MV L chest pain - started 2-3 weeks ago? getting more intense per pt no radiation of pain per pt no N/sweats/SOB/dizzy/palp no rash on chest no f/c/URI s/s no cough sees cardio - no recent appt heart cath in past - nothing recent not checking BP at home +stress with sons dx of DM . * ROS: ???General/Constitutional:?Significant change in weight?denies.?Exercise Intolerance?denies.?Night sweats?denies.?Fever?denies.?Eyes:?Dry eyes?Denies.?Vision changes?denies.?ENMT:?Sore Throat?denies.?Nose Bleeds?denies.?Difficulty hearing?denies.?Ear pain?denies.?Nose/sinus problems?denies.?Snoring?denies.?Bleeding gums?denies.?Dry mouth?denies.?Mouth ulcers denies.?Oral abnormalities?denies.?Teeth problems?denies.?Cardiovascular:?Shortness of Breath w/Walking?denies.?Shortness of Breath w/lying flat?denies.?Arm pain on exertion?denies.?Chest pain?admits.?Heart murmur?denies.?Palpitations?denies.?Respiratory:?Coughing up blood?denies.?Cough?denies.?Shortness of breath?denies.?Wheezing?denies.?Gastrointestinal:?Change in appetite?denies.?Vomiting blood?denies.?Abdominal pain?denies.?Constipation?denies.?Diarrhea?denies.?Vomiting?denies.?Genitourinary:?Dysuria/Increased Frequency?denies.?Hematuria?den ies.?Incontinence?denies.?Difficulty urinating?denies.?Musculoskeletal:?Swelling in the extremities?admits.?Arthralgias/jointpain?Admits.?Back pain?admits.?Weakness of muscles?admits.?Muscle aches?admits.?Skin:?Jaundice?Denies.?Mole(s)?denies.?Rash?denies.?Neurologic:?Dizziness?denies.?Loss of consciousness?denies.&# 160;Numbness?denies.?Weakness?admits.?Headache?denies.?Seizures?denies.?Psychiatric:?Alcohol abuse?denies.?Feeling safe in relationship&#16 0;denies.?Depression?denies.?Anxiety?denies.?Sleep Disturbances?denies.?Endocrine:?Fatigue?admits.?Hematologic/Lymphatic:?Swollen Glands?denies.?Bruising?denies.?Allergy/Immunology:?Runny nose?denies.?Sinus pressure?denies.?Frequent sneezing?denies.?Hives?denies.?Itching?denies.? * Active Problem List D63.1 Anemia in chronic ki dney disease Modified On:11/02/2023 Status:zjwqpnbvuR47.8B12 deficiency Modified On:11/02/2023 Status:iqtcovsdxL24.01Morbid (severe) obesity due to excess calories Modified On:01/26/2024 Status:yjwjqeelgO43.9Obesity, unspecified Modified On:04/26/2023 Status:fooonrfmmT25.00Pure hypercholesterolemia Modified On:04/20/2023 Status:kjvuelyocX74.01Primary insomnia Modified On:01/26/2024 Status:mwzzvgvjvA22.33OSA (obstructive sleep apnea) Modified On:04/10/2022 Status:vbnzvkesrG06.29Other chronic pain Modified On:01/26/2024 Status:bctlwlsolJ97.4Chronic pain syndrome Modified On:11/02/2023 Status:rwhfzvqyfY37Nduzgwdbb (primary) hypertension Modified On:05/09/2023 Status:cywfbjvyrC96Gefibmr hypertension Modified On:05/16/2023 Status:hkqijxssrX49.9Peripheral vascular disease, unspecified Modified On:12/27/2023 Status:izxtztrkeF26.9PVD (peripheral vascular disease) Modified On:12/27/2023 Status:vkodcxagxX97.0Lymphedema, not elsewhere classified Modified On:06/01/2023 Status:srbuhpzloG90.9Pulmonary emphysema, unspecified emphysema type Modified On:01/24/2024 Status:yyqisgeupM97.909Unspecified asthma, uncomplicated Modified On:11/02/2023 Status:krdwcgmbmV16.9Gastroesophageal reflux disease without esophagitis Modified On:05/04/2022 Status:mrpnsvvenD97.9Gastro-esophageal reflux disease without esophagitis Modified On:03/05/2023 Status:qxfwhpypzS62.90Diverticulosis Modified On:04/10/2022 Status:tqkxeqdyeN65.499Skin ulcer, unspecified ulcer stage Modified On:01/05/2023 Status:xbtqplbkbL41.0Bilateral primary osteoarthritis of hip Modified On:03/14/2023U Status:onpneigopG59.0Primary osteoarthritis of both knees Modified On:04/20/2023 Status:bjkkpawodD39.12Primary osteoarthritis of left knee Modified On:12/27/2023 Status:bltbxcueoA5U.26N4Tfgcbbhyvw chronic gout without tophus, unspecified site Modified On:03/05/2023 Status:geydxhndxJ86.812Spondylosis without myelopathy or radiculopathy, cervical region Modified On:03/14/2023 Status:msyyeqifnX81.816Spondylosis without myelopathy or radiculopathy, lumbar region Modified On:03/14/2023U Status:yjkuyzjluY25.36Other intervertebral disc degeneration, lumbar region Modified On:02/17/2023 Status:vdqhbbbinC17.36Lumbar degenerative disc disease Modified On:04/20/2023 Status:hbqqzsvmdB92.7Fibromyalgia Modified On:06/01/2023 Status:hlvxpmosuV59.30Chronic kidney disease, stage 3 unspecified Modified On:05/08/2023U Status:ujgbbseroP37.31Chronic kidney disease, stage 3a Modified On:01/24/2024U Status:skjkgkvmlC53.32Chronic kidney disease, stage 3b Modified On:06/01/2023 Status:egnydirlpE58.10Dysphagia, unspecified Modified On:03/05/2023 Status:psknzfdxmR83.2Paresthesia of skin Modified On:02/28/2023U Status:ykoswsvcaO73.81Unsteadiness on feet Modified On:06/10/2023U Status:xplyxbzoaY80.35Body mass index [BMI] 35.0-35.9, adult Modified On:01/26/2024 Status:zsclaetlhN06.36Body mass index [BMI] 36.0-36.9, adult Modified On:01/24/2024 Status:haaijjwkiU95.37Body mass index [BMI] 37.0-37.9, adult Modified On:05/16/2023 Status:msmjhhefjU59.41Body mass index [BMI] 40.0-44.9, adult Modified On:03/14/2023 Status:zwzrxjjceU41.42Hypomagnesemia Modified On:11/02/2023 Status:uiobhakgbT90.00Insomnia, unspecified Modified On:12/27/2023 Status:hmvucgevaF21.82Chronic fatigue, unspecified Modified On:12/27/2023 Status:guewaydzhS88.81Secondary hyperparathyroidism of renal origin Modified On:01/24/2024 Status:tnwiypfogO40.9Systemic involvement of connective tissue, unspecified Modified On:01/24/2024 Status:tdewawbzmS45.9Common variable immunodeficiency, unspecified Modified On:01/24/2024 Status:zeqlbzvhqQ29.40Moderate persistent asthma, uncomplicated Modified On:01/24/2024 Status:jxvgqjisfY81.7Left bundle-branch block, unspecified Modified On:01/26/2024 Status:yucvogafvM85.12Unilateral primary osteoarthritis, left hip Modified On:01/26/2024 Status:ftrhlcrosD84.00Constipation, unspecified Modified On:03/15/2024 Status:wqmevbjbxD86.22Diabetes due to undrl cond w diabetic chronic kidney disease Modified On:05/05/2024 Status:rbkblwszvC52.69Type 2 diabetes mellitus with other specified complication Modified On:05/18/2024 Status:kxqgawuqbZ62.38Body mass index [BMI] 38.0-38.9, adult Modified On:06/15/2024 Status:royhgbiguY36.9Vitamin D deficiency, unspecified Modified On:09/16/2024/U Status:wysystrusP91.21Mild intermittent asthma with (acute) exacerbation Modified On:11/04/2024/U Status:tdkvpfzosR01.9Allergic rhinitis, unspecified Modified On:01/10/2025U Status:ffqvwedelX61.89Other ill-defined heart diseases Modified On:01/12/2025U Status:wggyilqgaW03.9Chronic kidney disease, unspecified Modified On:01/12/2025U Status:cjiwtblruO58.2Nontoxic multinodular goiter Modified On:03/02/2025U Status:popnduifrU15.9Hypertensive chronic kidney disease with stage 1 through stage 4 chronic kidney disease, or unspecified chronic kidney disease Modified On:05/19/2025U Status:vwleemabeO61.812Obesity, class 2 Modified On:07/24/2025 Status:confirmed * Medical History: * Surgical History: R knee replacement biopsy of thyroid 1colonoscopy +hem and diverticulosis - repeat in 5 years per note 08/02/2018esophagogastroduodenoscopy 08/02/2018L knee replacement and 09/202208/17/2015heart cath bariatric surgery - * Hospitalization/Major Diagno stic Procedure: N o Hospitalization History. * Family History: 1 son(s) . . patient adopted but biological grandfather had CHF. * Social History: ???Tobacco Use:?Tobacco Use/Smoking?Patient is a?nonsmoker * Medications: T akingAlbuterol Sulfate (2.5 MG/3ML) 0.083% Nebulization Solution 3 mL as needed Inhalation every 6 hrs Albuterol Sulfate HFA 108 (90 Base) MCG/ACT Aerosol Solution INHALE 2 PUFFS EVERY 6 HOURS NEEDED Alendronate Sodium 70 mg Tablet TAKE ONE TABLET BY MOUTH ONCE WEEKLY Allopurinol 100 MG Tablet TAKE 2 TABLETS BY MOUTH DAILY Bumetanide 1 MG Tablet TAKE 1 TABLET BY MOUTH TWICE A DAY FOR 90 DAYS Cyanocobalamin 1000 MCG/ML Liquid 1 mL Injection SQ qmonth Dicyclomine HCl 20 MG Tablet 1 tablet Orally Three times a day FiberCon(Calcium Polycarbophil) 625 MG Tablet 2 tablets as needed Orally Three times a day Fluconazole 100 MG Tablet 1 tablet Orally daily Fluticasone Propionate 50 MCG/ACT Suspension 2 sprays Nasally Twice a day/PRN , Notes to Pharmacist: PRNGabapentin 300 MG Capsule TAKE ONE CAPSULE BY MOUTH THREE TIMES A DAY hydrOXYzine HCl 10 MG Tablet 1-2 tablets Orally every 6 hrs prn Magnesium Oxide -Mg Supplement 500 MG Capsule TAKE 1 CAPSULE BY MOUTH EVERYDAY AT BEDTIME MiraLax(Polyethylene Glycol 3350) 17 GM/SCOOP Powder 1/2 scoop Orally daily Ondansetron 4 MG Tablet Disintegrating 1/2-1 tablet on the tongue and allow to dissolve Orally Q8 hours/PRN nausea , Notes to Pharmacist: PRNOndansetron HCl 4 MG Tablet 1 tablet Orally tid prn N oxyCODONE-Acetaminophen 5-325 MG Tablet 1 tablet as needed Orally bid Pantoprazole Sodium 40 MG Tablet Delayed Release TAKE 1 TABLET BY MOUTH TWICE A DAY Phentermine HCl 37.5 MG Tablet 1 tablet before breakfast Orally Once a day PrePLUS , Notes to Pharmacist: 27-1mgProbiotic tiZANidine HCl 4 MG Tablet TAKE 2 TABLETS BY MOUTH TWICE DAILY Topiramate 200 MG Tablet TAKE 1 TABLET BY MOUTH TWICE A DAY FOR 30 DAYS Vitamin D (Ergocalciferol) 1.25 MG (95404 UT) Capsule 1 capsule Orally qweek Taking Albuterol Sulfate (2.5 MG/3ML) 0.083% Nebulization Solution 3 mL as needed Inhalation every 6 hrs Taking Albuterol Sulfate HFA 108 (90 Base) MCG/ACT Aerosol Solution INHALE 2 PUFFS EVERY 6 HOURS NEEDED Taking Alendronate Sodium 70 mg Tablet TAKE ONE TABLET BY MOUTH ONCE WEEKLY Taking Allopurinol 100 MG Tablet TAKE 2 TABLETS BY MOUTH DAILY Taking Bumetanide 1 MG Tablet TAKE 1 TABLET BY MOUTH TWICE A DAY FOR 90 DAYS Taking Cyanocobalamin 1000 MCG/ML Liquid 1 mL Injection SQ qmonth Taking Dicyclomine HCl 20 MG Tablet 1 tablet Orally Three times a day Taking FiberCon(Calcium Polycarbophil) 625 MG Tablet 2 tablets as needed Orally Three times a day Taking Fluconazole 100 MG Tablet 1 tablet Orally daily Taking Fluticasone Propionate 50 MCG/ACT Suspension 2 sprays Nasally Twice a day/PRN , Notes to Pharmacist: PRNTaking Gabapentin 300 MG Capsule TAKE ONE CAPSULE BY MOUTH THREE TIMES A DAY Taking hydrOXYzine HCl 10 MG Tablet 1-2 tablets Orally every 6 hrs prn Taking Magnesium Oxide -Mg Supplement 500 MG Capsule TAKE 1 CAPSULE BY MOUTH EVERYDAY AT BEDTIME Taking MiraLax(Polyethylene Glycol 3350) 17 GM/SCOOP Powder 1/2 scoop Orally daily Taking Ondansetron 4 MG Tablet Disintegrating 1/2- 1 tablet on the tongue and allow to dissolve Orally Q8 hours/PRN nausea , Notes to Pharmacist: PRNTaking Ondansetron HCl 4 MG Tablet 1 tablet Orally tid prn N Taking oxyCODONE-Acetaminophen 5-325 MG Tablet 1 tablet as needed Orally bid Taking Pantoprazole Sodium 40 MG Tablet Delayed Release TAKE 1 TABLET BY MOUTH TWICE A DAY Taking Phentermine HCl 37.5 MG Tablet 1 tablet before breakfast Orally Once a day Taking PrePLUS , Notes to Pharmacist: 27-1mgTaking Probiotic Taking tiZANidine HCl 4 MG Tablet TAKE 2 TABLETS BY MOUTH TWICE DAILY Taking Topiramate 200 MG Tablet TAKE 1 TABLET BY MOUTH TWICE A DAY FOR 30 DAYS Taking Vitamin D (Ergocalciferol) 1.25 MG (21296 UT) Capsule 1 capsule Orally qweek UnknownDULoxetine HCl 30 MG Capsule Delayed Release Particles 1 capsule Orally Once a day Ferrous Sulfate 325 (65 Fe) MG Tablet 1 tablet Orally Once a day Fluticasone-Salmeterol 232-14 MCG/ACT Aerosol Powder Breath Activated 2 puffs Inhalation Twice a day , Notes to Pharmacist: PRNPlavix(Clopidogrel Bisulfate) 75 MG Tablet 1 tablet Orally Once a day Symbicort(Budesonide- Formoterol Fumarate) 160-4.5 MCG/ACT Aerosol 2 puffs Inhalation Twice a day Medication List reviewed and reconciled with the patientUnknown DULoxetine HCl 30 MG Capsule Delayed Release Particles 1 capsule Orally Once a day Unknown Ferrous Sulfate 325 (65 Fe) MG Tablet 1 tablet Orally Once a day Unknown Fluticasone-Salmeterol 232-14 MCG/ACT Aerosol Powder Breath Activated 2 puffs Inhalation Twice a day , Notes to Pharmacist: PRNUnknown Plavix(Clopidogrel Bisulfate) 75 MG Tablet 1 tablet Orally Once a day Unknown Symbicort(Budesonide-Formoterol Fumarate) 160-4.5 MCG/ACT Aerosol 2 puffs Inhalation Twice a day Medication List reviewed and reconciled with the patient * Allergies: A spirin: anaphylaxisPenicillinSulfa Antibioticsno[Allergies Verified] Objective: * Vitals: W t:209.5lbs, Ht: 63 in, BP:152/90mm Hg, HR:74/min, RR:16/min, BMI:37.11Index, Oxygen sat %:94%, Ht-cm: 160.02 cm, Wt-k.03 kg. * Examination: ???General Examination: ?GENERAL APPEARANCE:?healthy Appearing , well nourished , well developed Level of distress: NAD,?+limp,?obese.?ENMT:?EACs clear, TMs clear, no hearing loss, no lesions on external ears, nares patent, nasal passages clear, no sinus tenderness, no nasal discharge, no mouth or lip ulcers, no bleeding gums, moist mucous membranes, no erythema, no exudates.?HEAD:?normocephalic, atraumatic.?EYES:?non-injected, no discharge, no pallor, PERRLA , EOMI, sclera non- icteric, peripheral vision grossly intact, acuity grossly intact.?LUNGS:?no dyspnea, breath sounds normal , good air movement, CTA except as noted, no wheezing, no rales/crackles, no rhonchi.?CARDIO:?not displaced, RRR, S1, S2 normal , no murmurs, rubs, gallops , no carotid bruits, normal throughout.?ABDOMEN:?normal bowel sounds , soft, non tender, not distended, no guarding, no rebound tenderness, no masses, no CVA tenderness, liver non tender, no hepatomegaly.?BACK:?normal curvature.?MUSCULOSKELETAL:?normal motor strength, normal tone, +L knee joint enlargement and limited ROM, +OA changes b/l hands, no contractures, no malalignment, no tenderness.?SKIN:?no rash, no lesions, no ulcer, no abnormal nevi, no induration, no nodules, good turgor, no jaundice.?EXTREMITIES:? No edema.?NEUROLOGIC:?cranial nerves grossly intact, no tremor.?PSYCH:?judgement and insight good, active and alert, normal mood, normal affect.?NECK/THYROID:?Neck supple, trachea midline, no masses, FROM, no cervical LAD, no enlargement, non-tender, no nodules.? Assessment: * Assessment: 1.?Chest pain, unspecified - R07.9 (Primary)???2.?Morbid (severe) obesity due to excess calories - E66.01???3.?Body mass index [BMI] 37.0-37.9, adult - Z68 .37???4.?Essential (primary) hypertension - I10??? Plan: * Treatment: ?Procedure: CARDIO Stress Test - Conrad Muñoz 08/17/2025 12:12:46 PM EDT >please call pt for appt Notes: ER if worsens stress test to r/o ischemia ?BP related - see below ??2.?Morbid (severe) obesity due to excess calories? Notes: diet/exercise ? Referral To:Development Mgr [facility]??Dietitian ?Reason:obesity 3.?Essential (primary) hypertension? Notes: bp check daily goal <130/80 diet/exercise uncontrolled - rec medication?? * Procedure Codes: 3 080F DIAST BP > OR = 90 MM [id number] SYST BP > OR = 140 MM HG * * ign off status: CompletedVisit Status:?CHK (Check Out) true * Provider: Susi Sosa DO Date: Generated for Printing/Faxing/eTransmitting on:?08/30/2025 07:55 AM EST History and Physical Notes * Examination CategorySub-CategoryDetailNotesCategory NotesGeneral ExaminationGENERAL APPEARANCE:healthy Appearing , well nourished , well developed Level of distress: NAD, +limp, obeseEYES:non-injected, no discharge, no pallor, PERRLA , EOMI, sclera non-icteric, peripheral vision grosslyintact, acuity grossly intact CARDIO:not displaced, RRR, S1, S2 normal , no murmurs, rubs, gallops , no carotid bruits, normal throughoutLUNGS:no dyspnea, breath sounds normal , good air movement, CTA except as noted, no wheezing, no rales/crackles, no rhonchi ABDOMEN:normal bowel sounds , soft, non tender, not distended, no guarding, no rebound tenderness, no masses, no CVA tenderness, liver non tender, no hepatomegalyNEUROLOGIC:cranial nerves grossly intact, no tremorSKIN:no rash, no lesions, no ulcer, no abnormal nevi, no induration, no nodules, good turgor, no jaundiceEXTREMITIES:No edemaBACK:normal curvatureMUSCULOSKELETAL:normal motor strength, normal tone, +L knee joint enlargement and limited ROM, +OA changes b/l hands, no contractures, no malalignment, no tendernessPSYCH:judgement and insight good, active and alert, normal mood, normal affectENMT:EACs clear, TMs clear, no hearing loss, no lesions on external ears, nares patent, nasal passages clear, no sinus tenderness, no nasal discharge, no mouth or lip ulcers, no bleeding gums, moist mucous membranes, no erythema, no exudatesHEAD: normocephalic, atraumaticNECK/THYROID:Neck supple, trachea midline, no masses, FROM, no cervical LAD, no enlargement, non-tender, no nodules Consultation Request Notes Referral Date Referring Provider Referred Provider Not ez 08/17/2025 Conrad Sosa [facility], Development Mgr obesity
--- NOTE | 2025-08-30 07:15 | NM_ITS ---
Patient Name: CASTILLO GRAHAM MR#: [id number] : 1955 Exam Date: 08/30/2025 Ordering Doctor: DR PETER ZHOU D.O. RADIOLOGY REPORT PROCEDURE: NM VILMA PERF SPECT REST STR COMPARISON: None. INDICATIONS: CHEST PAIN TECHNIQUE: Exam Description: Stress/Rest one day protocol gated SPECT Rest Imagin.8 mCi Tc-99m Cardiolite IV on 08/30/2025 Stress Imaging 30.1 mCi Tc-99m Cardiolite IV on 08/30/2025 Exercise Protocol: 0.4 mg Lexiscan given IV Heart Rate (bpm): Rest: 62 Max: 77 PMHR: 51 Blood Pressure: Rest: 111/60 Max: 116/48 Symptoms: Rest and peak stress ECG findings were pending, and the exercise portion of the study was pending per attending physician [facility]. For more details, please see separate cardiac stress test report. FINDINGS: QUALITY OF STUDY: Good PERFUSION DEFECT: LOCATION: Anterolateral SIZE: Large SEVERITY: Severe TYPE: Reversible WALL MOTION: Hypokinesis of the inferior wall LV SIZE: 104 mL. TID / TCD: 1.0 LVEF: Calculated EF 54%. SUMMARY: Myocardial perfusion imaging study is abnormal CONCLUSION: 1. Myocardial perfusion is abnormal with soft tissue attenuation 2. There is a large, anterolateral, reversible perfusion defect suggestive of ischemia 3. The accuracy of the study is decreased by significant soft tissue attenuation 4. Global left ventricular systolic function is normal: ejection fraction is 54% 5. No significant transient ischemic dilatation Dictated by: Aleena Hernandez M.D. on 08/30/2025 at 15:42 Approved by: Aleena Hernandez M.D. on 08/30/2025 at 15:46
--- OUTSIDE RECORDS SUMMARY | 2025-08-30 07:56 | XMS_ITS | Clinical Summary ---
Author Organization [facility] Address [address] [place] [address] [place] [address] Care Team Providers Care Forensic Pathologist Name Role Phone Conrad Sosa DO Primary Care Provider [phone] Active Problems ProblemNoted DateDiagnosed DateObesity: body mass index of 35.0-39.9004/28/2025 Social History Tobacco UseTypesPacks/DayYears UsedDateSmoking Tobacco: Never Assessed CommentsUnknownSex and Gender InformationValueDate RecordedSex Assigned at Not on fileLegal MbmXxjtxb98/16/2025 8:40 PM EDTGender IdentityNot on fileSexual OrientationNot on file Last Filed Vital Signs Vital SignReadingTime TakenCommentsBlood Pressure--Pulse--Temperature-- Respiratory Rate--Oxygen Saturation--Inhaled Oxygen Concentration--Fweskv51.8 kg (211 lb 3.2 oz)04/28/2025 12:31 PM FEASjovht398 cm (5' 3 )04/28/2025 12:31 PM EDTBody Mass Index37.41004/28/2025 12:31 PM EDT Plan of Treatment Health MaintenanceDue DateLast DoneCommentsDEXA SCAN [id number] HEPATITIS C VIRUS QBVGEEFVS29/08/7178MCFFVCU1955TDAP (ADULT)1974 CERVICAL CANCER SCREENING SZGLNZFASI26/08/1976LIPID HRAEBPWTX71/08/1995MAMMOGRAM SCREENING YKFFFUEXQG07/08/1995COLORECTAL CANCER SCREENING WNVDCMOUFE51/08/2000 ZOSTER (SHINGLES) VACCINE (1 of 2)2005COVID-19 VACCINE (2024- season)5001/24/2021, 01/02/2021INFLUENZA VACCINE (#1)2025 08/10/2024, 08/26/2023, 08/07/2022, Additional history existsRSV VACCINE (1 - 1- dose 75+ series)2030PNEUMOCOCCAL VACCINE KILYPKBtwqcimev38/01/2020, 08/02/2019, 07/19/2019, Additional history existsHEP B VACCINEAged OutNo longer eligible based on patient's age to complete this topic Procedures Procedure NamePriorityDate/TimeAssociated DiagnosisCommentsLABS (OUTSIDE) 08/17/2025from Last 3 Months Results * LABS (OUTSIDE) (08/17/2025)Specimen (Source)Anatomical Location / Laterality Collection Method / VolumeCollection TimeReceived Time08/17/2025 Narrative Authorizing ProviderResult TypeResult StatusOther Other OTLAB SEND OUTSFinal Result from Last 3 Months Insurance Care Teams Team MemberRelationshipSpecialtyStart DateEnd Date Conrad Sosa DO [address] [place] [address] [facility]04/28/25
--- OUTSIDE RECORDS SUMMARY | 2025-08-30 07:56 | XMS_ITS | Patient Health Record ---
Author Organization [facility] Address [address] [place] [address] Care Team Providers Care Accounts Payable Administrator Name Role Phone Alli Barlow Primary Care Provider Allergies Allergen (clinical drug ingredient) Drug/Non Drug Allergy documented on EMR Reaction Allergy Type Onset Date Status aspirin Aspirin stomach upset Drug Allergy ActiveLatexLatexrashAllergyActivePenicillinrashDrug AllergyActiveSubstance with sulfonamide structure and antibacterial mechanism of action (substance)Sulfa AntibioticshivesDrug AllergyActiveTaperashAllergyActive Reason For Referral No Information Medications Medication SIG (Take, Route, Frequency, Duration) Notes Start Date End Date Status Allopurinol 100 MG Tablet 2 tabs Orally Once a d ay ActiveGabapentin 300 MG Capsule1 capsule Orally TIDActiveBumetanide 0.5 MG Tablet1 tab Orally bidActiveMidodrine HCl 2.5 MG Tablet1 tablet Orally BIDActive Pantoprazole Sodium 40 MG Tablet Delayed Release1 tablet Orally once a day; Duration: 90 daysActiveEliquis 2.5 MG Tablet1 tab Orally twice a day (bid); Duration: 90 daysActivetiZANidine HCl 4 MG Tablet2 tabs Orally BIDActive Albuterol Sulfate HFA 108 (90 Base) MCG/ACT Aerosol Solution1 puff as needed Inhalation every 4 hrsActiveSymbicort 160-4.5 MCG/ACT Aerosol2 puffs Inhalation Twice a dayActiveAlbuterol Sulfate (2.5 MG/3ML) 0.083% Nebulization Solution3 ml as needed Inhalation every 8 hrsActiveNebulizer tubing and suppliesActive Social History Tobacco Use: Social History Observation Description Date Details (start date - stop date) Never Smoker NA - NA Social History Social DeterminantsSocial InfoQuestionAnswerNotesPRAPAREDate Completed/Updated: 05/08/2021What is your current housing situation?I have housingAre you worried about losing your housing?NoWhat is the highest level of school that you have finished?High school diploma or GEDWhat is your current work situation?Otherwise unemployed but not seeking work (ex. 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 Check all that applyI do not have problems meeting my needsHas lack of transportation kept you from medical appointments, meetings, work or from getting things needed for daily living?Yes, it has kept me from medical appointments or from getting my medications,Yes, it has kept me from non-medical meetings, appointments, work, or getting things needed for daily livingHow often do you see or talk to people that you care about and feel close to? (For example: talkingto friends on the phone, visiting friends or family, going to bahai or club meetings)More than 5 times a weekHow stressed are you? Stress is when someone feels tense, nervous, anxious, or cant sleep at night because their mind is troubledSomewhatIn the past year have you spent more than 2 nights in a row in a nursing home, custodial, nursing home center, orjuvenile correctional facility?NoAre you a refugee?NoWhat country are you from?[place]Do you feel physically and emotionally safe where you currently live?YesIn the past year, have you been afraid of your partner or ex-partner?NoPRAPARE Score:6GeneralSocial InfoQuestionAnswerNotes Substance abuse/mental health issues of patient/familyPatient -DeniesFamily Member -DeniesAbility to understand healthcare/treatmentPatient:GoodTobacco Screen:Are you a:never smokerSocial/Support Concerns:Patient:NoAlcohol Screening:Did you have a drink containing alcohol in the past year?Yes? How often did you have a drink containing alcohol in the past year?Monthly or less (1 point)? How many drinks did you have on a typical day when you were drinking in the past year?1 or 2 (0 points)? How often did you have six or more drinks on one occasion in the past year?Never (0 points)Zpsuwl3NbeavxvgmgermpFswmnujl Behaviors affecting healthPoor/Risky Behaviors:Denies-Communication Barrier: Language Barrier?:No Problems Problem Type SNOMED Code ICD Code Onset Dates Problem Status W/U Status Risk Notes Problem Gastroesophageal ref lux disease without esophagitis (557221183) Gastroesophageal reflux disease without esophagitis (K21.9) Activeconfirmed Plan Of Treatment No Information Insurance Providers Payer Name Payer Address Payer Phone Subscriber Number Group Number Insured Name Patient Relationship to Insured Coverage Start Date Coverage End Date MEDICARE CGS [address] [place] [address] [id number] GLADYSPAULJOVANrubio - patient is the [id number] 2007MEDICAID [address] [place] [id number] - patient is the [id number] 2007[address] [place] [phone] [id number] - patient is the [id number] 2022[facility]LY [facility] AETNA MEDICAREPO [address] [address] [place] [id number] - patient is the [id number] 2022 Medical (General) History Medical History History ICD Code Gout GERDAsthma/COPDCHF? HPTNStage 3 kidney diseaseTYPE 2 DMSurgical History Surgery Date(Month/Year) appendectomy 1961 T & A 1973 04/1983 Gastric Bypass 1983 Lower GI 2018 Upper GI 2019 Heart Catheterization 1999 Thyroid biopsy 2020 Total left knee replacement 2018 Total rt. knee replacement x 2 2018 Hospitalization History Reason Date(Month/Year) see above
--- OUTSIDE RECORDS SUMMARY | 2025-08-30 07:56 | XMS_ITS | Clinical Summary ---
Author Organization [facility] Address [address] [place], [place] [id number] Care Team Providers Care [place] Name Role Phone Conrad Sosa Primary Care Provider [phone] Italo Ann MD Unavailable [phone] Allergies Active AllergyReactionsCriticalityNoted AbfhAtiecxanSoslgYfwm36/12/2017 ZhyjtetsbdBrrf38/12/2017Sulfa (Sulfonamide Antibiotics)Rash06/30/2017 Medications MedicationSigDispense QuantityRefillsLast FilledStart DateEnd [...] Active Active Problems ProblemNoted DateDiagnosed DateDyspnea on tjwuefoy49/09/2018Localized edema 05/27/2018Cramps of left lower abeqimset30/21/2018Chronic combined systolic and diastolic congestive heart wfkdzmr7807/06/2017Pulmonary HTN07/06/2017Essential zxhjgcbovung48/18/2017OSA (obstructive sleep apnea)07/06/2017Gastroesophageal reflux qhblusj2607/06/20173616Szqzuepzwekx17/18/2017Restrictive lung wwuvjfb3307/06/2017 Obesity, Class III, BMI >= 40 (morbid obesity) E66.01006/30/2017 Social History Tobacco UseTypesPacks/DayYears UsedDateSmoking Tobacco: Passive Smoke Exposure - Never SmokerCigarettesSmokeless Tobacco: NeverAlcohol UseStandard Drinks/Week CommentsNo0 (1 standard drink = 0.6 oz pure alcohol)Area Deprivation IndexAnswer Date RecordedNational Score (1-100), lower number is lower riskNot on file 09/25/2020State Score (1-10), lower number is lower riskNot on file09/25/2020 Data from: https://www.neighborhoodatlas.medicine.[facility].edu/. Last address used for calculationNot on file09/25/2020CommentsNoSex and Gender Information ValueDate RecordedSex Assigned at BirthNot on fileLegal ZcjVursys59/02/2012 9:52 AM ESTGender IdentityNot on fileSexual OrientationNot on file Last Filed Vital Signs Vital SignReadingTime TakenCommentsBlood Wapjaplq571/6808/27/2018 12:31 PM EST Nhefp5488/06/2018 12:31 PM ESTTemperature--Respiratory Zmyg256910/27/2017 12:31 PM ESTOxygen Zhssjojlxh151%08/27/2018 12:31 PM ESTInhaled Oxygen Concentration-- Fpllze236 kg (269 lb)08/27/2018 12:31 PM SINVmuyxs146 cm (5' 3 )08/27/2018 12:31 PM ESTBody Mass Index47.6508/27/2018 12:31 PM EST Plan of Treatment Health MaintenanceDue DateLast DoneCommentsAnxiety Ymauciahn45/08/1973Depression Zcifqhpeo51/08/1973Hepatitis C Lccxwmzks69/08/1973DTaP,Tdap,Td Vaccine (1 - Tdap)1974Mammogram Bbuloxqmv95/08/1995CT Tczyuvkdyglq98/08/2000Cologuard (FIT-DNA)07/26/20004701Uddarloktip11/08/2000Colorectal Cancer Wxlnrqomk88/08/2000 Diabetes Wvivmcmcd03/08/2000Fecal Occult Blood2000Lipid Screening 07/26/20004216Gefcjmbucwcbv08/08/2000Shingrix Vaccine (1 of 2)2005Bone Density Xkipafxch82/08/2020Pneumococcal Vaccine: 50+ (3 of 3 - PCV20 or PCV21)07/19/2023 07/19/2018, 12/18/2011dvance Directive Sbykjukvkj84/01/2025Covid-19 Vaccine (1 - 2024- season)2025Influenza Vaccine (#1), 08/20/2017RSV Vaccine (1 - 1-dose 75+ series)2030 Insurance Care Teams Team MemberRelationshipSpecialtyStart DateEnd Date Conrad Sosa DO PCP - GeneralFamily Medicine06/25/17 Italo Ann MD [address] [phone] Primary Staff PhysicianCardiology01/04/19
--- OUTSIDE RECORDS SUMMARY | 2025-08-30 07:56 | XMS_ITS | Patient Health Record ---
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 143.02 MICRO ALB, UR13.8CBC WITH DIFF (Not yet reviewed by provider) Interpretation: Performing Lab: Notes/Report: WBC6.6RBC4.70ZHKBNDCXEI82.6EMIEFJLCCH61.1MCV89.0MCH28.7WAND44.8RDW-SD14.7SMC788 CMP (COMP MET GONZALEZ) w/eGFR CKD-EPI (Not yet reviewed by provider) Interpretation: Performing Lab: Notes/Report: GLUCOSE (FBS)104BUN (UREA NTORGEN)21.5ADMIZSFZEZ5.0GFR RGL85OFISUT (NA)143 POTASSIUM (K)4.1CHLORIDE (CL)110CARBON NMWLBNL87.7ZFOFTKT4.4ALBUMIN, BLOOD3.2 PROTEIN, TOTAL (TP)7.0ALKALINE PHOSPHATE (ALP)76ALT (SGPT)7AST (SGOT)17 BILIRUBIN, TOTAL0.3BUN/CREATININE RATIO21.0VITAMIN D, 25 LEVEL (TOTAL) (Not yet reviewed by provider) Interpretation: Performing Lab: Notes/Report: VIT D-25, TOT46.3URIC ACID (Not yet reviewed by provider) Interpretation: Performing Lab: Notes/Report: URIC ACID4.1TSH (Not yet reviewed by provider) Interpretation: Performing Lab: Notes/Report: TSH1.073T4 FREE (T4FR) (Not yet reviewed by provider) Interpretation: Performing Lab: Notes/Report: T4, FREE1.04T3 FREE (T3FR) (Not yet reviewed by provider) Interpretation: Performing Lab: Notes/Report: T3, FREE3.05LIPID PANEL (CHOL/TRIG/HDL/LDL) (Not yet reviewed by provider) Interpretation: Performing Lab: Notes/Report: [id number] - 200 MG/LJHVZCREWQDWVMT0925 - 150 MG/DLHDL (DIRECT)6240 - 60 MG/DLLDL (CALC)150.00 - 130 MG/DLVLDL (CALC)13.27 - 46 MG/DLCHOL-HDL RATIO3.60.0 - 4.4MAGNESIUM (Not yet reviewed by provider) Interpretation: Performing Lab: Notes/Report: MG2.5XR Abdomen AP (1 view) (KUB) * Reviewed date:05/05/2025 10:46:50 AM Interpretation: Performing Lab: Notes/Report: CBC WITH DIFF Reviewed date:05/05/2025 10:46:50 AM Interpretation: Performing Lab: Notes/Report: MLC185ULD6.97FXKZFNEGRG21.1PUKWLULMIT05.6MCV87.6MCH28.0UQTX90.1RDW-SD13.6PXR388 CMP (COMP MET GONZALEZ) w/eGFR CKD-EPI Reviewed date:05/05/2025 10:46:50 AM Interpretation: Performing Lab: Notes/Report: GLUCOSE (FBS)110BUN (UREA NTORGEN)35.4AHWWIGAWHO5.43GFR MVV03EOOFNL (NA)143 POTASSIUM (K)3.5CHLORIDE (CL)105CARBON BHPOZWP67.6FIZOGXY0.7ALBUMIN, BLOOD3.4 PROTEIN, TOTAL (TP)7.2ALKALINE PHOSPHATE (ALP)85ALT (SGPT)28AST (SGOT)19 BILIRUBIN, TOTAL0.4BUN/CREATININE RATIO24.5UA (REFLEX URINALYSIS TO CULTURE) Reviewed date:05/05/2025 10:46:50 AM Interpretation: Performing Lab: Notes/Report: APPEARANCElt. yellowBILIRUBINnegCASTSnoneCRYSTALSnoneGLUCOSEnegKETONESneg LEUKOCYTE ESTERASEsmallNITRITEnegOCCULT BLOODnegPH5.5PROTEINnegRBCnoneLIPASE Reviewed date:05/05/2025 10:46:50 AM Interpretation: Performing Lab: Notes/Report: FZVXAQ46.0AMYLASE Reviewed date:05/05/2025 10:46:50 AM Interpretation: Performing Lab: Notes/Report: SYBJWXK19 Reason For Referral Reason Palliative care refe rral d/t multiple chronic conditions Diagnosis 1 Other chronic pain ( G89.29) Diagnosis 2 Chronic kidney disea se, stage 3 unspecified (N18.30) Diagnosis 3 Fibromyalgia (M79.7) Diagnosis 4 Type 2 diabetes marilu itus with other specified complication (E11.69) Referral Organization [facility] Referring Provider First Name Conrad Referring Provider Last Name Ian Referring Provider [facility] tresa Referred Provider [facility] Referred Provider Specialty Palliative C are Referral [...] with other specified complication (E11.69) Referral Organization [facility] Referring Provider First Name Conrad Referring Provider Last Name Ian Referring Provider [facility] tresa Referred Provider [facility] Referred Provider Specialty Palliative C are Referral Priority Routine Reason screening colonoscop y - was due in 2022 Diagnosis 1 Encounter for screen ing for malignant neoplasm of colon (Z12.11) Referral Organization [facility] Referring Provider First Name Conrad Referring Provider Last Name Ian Referring Provider [facility] tresa Referred Provider Glen Bejarano Referred Provider Specialty Gastroentero logy General Notes Conrad Sosa 04:11:03 PM >please call pt for apt Referral Priority Routine Reason eval & treat Diagnosis 1 Chronic kidney disea se, stage 3a (N18.31) Referral Organization [facility] Referring Provider First Name Conrad Referring Provider Last Name Sosa Referring Provider [facility] tresa Referred Provider Tg Ortega Referred Provider Specialty Nephrology Referral Priority Routine Reason screening colonoscop y Diagnosis 1 Encounter for screen ing for malignant neoplasm of colon (Z12.11) Referral Organization [facility] rupa Referring Provider First Name Conrad Referring Provider Last Name Sosa Referring Provider [facility] tresa Referred Provider Glen Bejarano Referred Provider Specialty Gastroentero logy General Notes Conrad Sosa 12:00:57 PM >plesae call pt for appt Referral Priority Routine Reason dysphagia egd Diagnosis 1 Dysphagia, unspecifi ed (R13.10) Referral [facility] Referring Provider First Name Conrad Referring Provider Last Name Ian Referring Provider [facility] tresa Referred Provider Glen Bejarano Referred Provider Specialty Gastroentero logy General Notes Conrad Sosa 12:01:52 PM >plesae call pt for appt - egd needed Referral Priority Routine Reason obesity Diagnosis 1 Morbid (severe) obes ity due to excess calories (E66.01) Referral Organization [facility] Referring Provider First Name Conrad Referring Provider Last Name Sosa Referring Provider [facility] treas Referred Provider TB, Insulation Packer Referred Provider Specialty Dietitian General Notes Conrad Sosa 09:40:55 PM >please call pt for appt Referral Priority Routine Medications Medication SIG (Take, Route, Frequency, Duration) Notes Start Date End Date Status Ondansetron 4 MG 1/2-1 tablet on the tongue and allow to dissolve Orally Q8 hours/PRN nausea; Duration: 30 days PRN ActiveMiraLax 17 GM/SCOOP1/2 scoop Orally daily; Duration: 30 07/05/2025 ActiveoxyCODONE-Acetaminophen 5-325 MG1 tablet as needed Orally bid; Duration: 30 5ActiveOndansetron HCl 4 MG1 tablet Orally tid prn N; Duration: 30 days5ActivePhentermine HCl 37.5 MG1 tablet before breakfast Orally Once a day; Duration: 30 days5ActivePantoprazole Sodium 40 MGTAKE 1 TABLET BY MOUTH TWICE A DAY; Duration: 90SzqodjMlkvyauteXqosmgTujTHQH55-5yv ActiveAlbuterol Sulfate (2.5 MG/3ML) 0.083%3 mL as needed Inhalation every 6 hrs; Duration: 30 days5ActiveTopiramate 200 MGTAKE 1 TABLET BY MOUTH TWICE A DAY FOR 30 DAYS; Duration: 30ActivetiZANidine HCl 4 MGTAKE 2 TABLETS BY MOUTH TWICE DAILY; Duration: 30ActiveAlendronate Sodium 70 mgTAKE ONE TABLET BY MOUTH ONCE WEEKLY; Duration: 84ActiveAlbuterol Sulfate HFA 108 (90 Base) MCG/ACT INHALE 2 PUFFS EVERY 6 HOURS NEEDED; Duration: 25ActiveVitamin D (Ergocalciferol) 1.25 MG (91167 UT)1 capsule Orally qweek4Active Allopurinol 100 MGTAKE 2 TABLETS BY MOUTH DAILY; Duration: 90ActiveFerrous Sulfate 325 (65 Fe) MG1 tablet Orally Once a dayUnknownDULoxetine HCl 30 MG1 capsule Orally Once a dayUnknownCyanocobalamin 1000 MCG/ML1 mL Injection SQ qmonth; Duration: 30 daysActivePlavix 75 MG1 tablet Orally Once a dayUnknown Bumetanide 1 MGTAKE 1 TABLET BY MOUTH TWICE A DAY FOR 90 DAYS; Duration: 90 ActiveFluticasone-Salmeterol 232-14 MCG/ACT2 puffs Inhalation Twice a day; Duration: 30 daysPRNUnknownFiberCon 625 MG2 tablets as needed Orally Three times a day; Duration: 90 daysActiveDicyclomine HCl 20 MG1 tablet Orally Three times a day; Duration: 90 days3ActiveSymbicort 160-4.5 MCG/ACT2 puffs Inhalation Twice a dayUnknownFluticasone Propionate 50 MCG/ACT2 sprays Nasally Twice a day/PRN; Duration: 30 daysPRNActiveFluconazole 100 MG1 tablet Orally daily; Duration: 10 days5ActivehydrOXYzine HCl 10 MG1-2 tablets Orally every 6 hrs prn; Duration: 30 daysActiveGabapentin 300 MGTAKE ONE CAPSULE BY MOUTH THREE TIMES A DAY; Duration: 90ActiveMagnesium Oxide -Mg Supplement 500 MG TAKE 1 CAPSULE BY MOUTH EVERYDAY AT BEDTIMEActive Immunizations Vaccine Route Administration Date Status Comme nts Flu, Fluad (6025-0293) (08764) 65 yrs+, single-dose syringe IM Intramuscular 08/07/2022 Administered Flu, Fluad (9243-0932) (88756) 65 yrs+, single-dose syringeIM Intramuscular 3AdministeredFlu, Fluad (42596) 65 yrs and older, single-dose syringe (6934-8060)IM Puqiwdhqsasau10/23/2024dministeredPneumococcal (Pneumovax 23) Iaowxqt3608/02/2019AdministeredPneumococcal (Prevnar 13)Mltlbkb6607/19/2018 Administered Social History Tobacco Use: Social History Observation Description Date Details (start date - stop date) Never Smoker NA - NA Tobacco Use/Smoking Question Answer Notes Patient is a nonsmoker Alcohol Screen (Audit-C) Question Answer Notes Did you have a drink containing alcohol in the p ast year? No Bvclsk9VrpvnjroipmopeQgemyrtx Problems Problem Type SNOMED Code ICD Code Onset Dates Problem Status W/U Status Risk Notes Problem Essential hypertension (45444568 ) Essential (primary) hypertension (I10) ActiveconfirmedProblemPeripheral vascular disease (274757915)Peripheral vascular disease, unspecified (I73.9)ActiveconfirmedProblemGastro-esophageal reflux disease without esophagitis (508859953)Gastro-esophageal reflux disease without esophagitis (K21.9)ActiveconfirmedProblemChronic kidney disease (698577034) Chronic kidney disease, unspecified (N18.9)ActiveconfirmedProblemAnemia in chronic kidney disease (688010984)Anemia in chronic kidney disease (D63.1)Active 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, 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)ActiveconfirmedProblemNon-toxic multinodular goiter (71088196)Nontoxic multinodular goiter (E04.2)Active confirmedProblemType 2 diabetes mellitus with other specified complication (E11.69)ActiveconfirmedProblemVitamin D deficiency (64402842)Vitamin D deficiency, unspecified (E55.9)ActiveconfirmedProblemMorbid obesity (disorder) (721533735)Morbid (severe) obesity due to excess calories (E66.01)Active confirmedProblemObesity (392344269)Obesity, unspecified (E66.9)Activeconfirmed ProblemHypomagnesemia (892862949)Hypomagnesemia (E83.42)ActiveconfirmedProblem Primary insomnia (1276265)Primary insomnia (F51.01)ActiveconfirmedProblem Insomnia (351849275)Insomnia, unspecified (G47.00)ActiveconfirmedProblemChronic pain (18409854)Other chronic pain (G89.29)ActiveconfirmedProblemChronic pain syndrome (608269006)Chronic pain syndrome (G89.4)ActiveconfirmedProblemChronic kidney disease due to hypertension (031779063753743)Hypertensive chronic kidney disease with stage 1 through stage 4 chronic kidney disease, or unspecified chronic kidney disease (I12.9)ActiveconfirmedProblemLeft bundle branch block (84006124)Left bundle-branch block, unspecified (I44.7)ActiveconfirmedProblem Heart disease (disorder) (65327957)Other ill-defined heart diseases (I51.89) ActiveconfirmedProblemLymphedema (433329800)Lymphedema, not elsewhere classified (I89.0)ActiveconfirmedProblemAllergic rhinitis (85291120)Allergic rhinitis, unspecified (J30.9)ActiveconfirmedProblemExacerbation of intermittent asthma (906583311)Mild intermittent asthma with (acute) exacerbation (J45.21)Active confirmedProblemUncomplicated moderate persistent asthma (574015361)Moderate persistent asthma, uncomplicated (J45.40)ActiveconfirmedProblemUncomplicated asthma (disorder) (474174557)Unspecified asthma, uncomplicated (J45.909)Active confirmedProblemConstipation (48013686)Constipation, unspecified (K59.00)Active confirmedProblemLocalized, primary osteoarthritis of the pelvic region and thigh (642990591)Bilateral primary osteoarthritis of hip (M16.0)ActiveconfirmedProblem Localized, primary osteoarthritis of the pelvic region and thigh (737549737) Unilateral primary osteoarthritis, left hip (M16.12)ActiveconfirmedProblem Disorder of connective tissue (009601038)Systemic involvement of connective tissue, unspecified (M35.9)ActiveconfirmedProblemCervical spondylosis without myelopathy (008078939)Spondylosis without myelopathy or radiculopathy, cervical region (M47.812)ActiveconfirmedProblemLumbosacral spondylosis without myelopathy (45678678)Spondylosis without myelopathy or radiculopathy, lumbar region (M47.816)ActiveconfirmedProblemDegeneration of lumbar intervertebral disc (23269566)Other intervertebral disc degeneration, lumbar region (M51.36)Active confirmedProblemFibromyalgia (049640928)Fibromyalgia (M79.7)Activeconfirmed ProblemSecondary hyperparathyroidism of renal origin (22583244)Secondary hyperparathyroidism of renal origin (N25.81)ActiveconfirmedProblemDysphagia (85693908)Dysphagia, unspecified (R13.10)ActiveconfirmedProblemParesthesia (finding) (74394454)Paresthesia of skin (R20.2)ActiveconfirmedProblemAbnormal gait (35481932)Unsteadiness on feet (R26.81)ActiveconfirmedProblemChronic fatigue syndrome (disorder) (88965116)Chronic fatigue, unspecified (R53.82) ActiveconfirmedProblemPeripheral vascular disease (212559273)PVD (peripheral vascular disease) (I73.9)ActiveconfirmedProblemObstructive sleep apnea syndrome (31204565)JEREMY (obstructive sleep apnea) (G47.33)ActiveconfirmedProblem Osteoarthritis of knee (658866742)Primary osteoarthritis of left knee (M17.12) ActiveconfirmedProblemDegeneration of lumbar intervertebral disc (97928801) Lumbar degenerative disc disease (M51.36)ActiveconfirmedProblemDiverticular disease of colon (760202013)Diverticulosis (K57.90)ActiveconfirmedProblem Gastroesophageal reflux disease without esophagitis (947719330)Gastroesophageal reflux disease without esophagitis (K21.9)ActiveconfirmedProblemPulmonary emphysema (06599320)Pulmonary emphysema, unspecified emphysema type (J43.9) ActiveconfirmedProblemOsteoarthritis of knee (642501731)Primary osteoarthritis of both knees (M17.0)ActiveconfirmedProblemVitamin B12 deficiency (non anemic) (14773362)B12 deficiency (E53.8)ActiveconfirmedProblemChronic gouty arthritis (85923423)Idiopathic chronic gout without tophus, unspecified site (M1A.00X0) ActiveconfirmedProblemDiabetes due to undrl cond w diabetic chronic kidney disease (E08.22)ActiveconfirmedProblemPure hypercholesterolemia (678883717)Pure hypercholesterolemia (E78.00)ActiveconfirmedProblemPrimary hypertension (18230043)Primary hypertension (I10)ActiveconfirmedProblemSkin ulcer (disorder) (94444643)Skin ulcer, unspecified ulcer stage (L98.499)ActiveconfirmedProblem Chronic kidney disease stage 3 (disorder) (762794240)Chronic kidney disease, stage 3 unspecified (N18.30)ActiveconfirmedProblemChronic kidney disease stage 3A (disorder) (049481272)Chronic kidney disease, stage 3a (N18.31)Active confirmedProblemChronic kidney disease stage 3B (disorder) (910171840)Chronic kidney disease, stage 3b (N18.32)ActiveconfirmedProblemObese class II (835289470577465)Body mass index [BMI] 35.0-35.9, adult (Z68.35)Activeconfirmed ProblemBody mass index 35.00 to 39.99 (992977550374080)Body mass index [BMI] 36.0-36.9, adult (Z68.36)ActiveconfirmedProblemBody mass index 35.00 to 39.99 (528257833906689)Body mass index [BMI] 37.0-37.9, adult (Z68.37)Activeconfirmed ProblemBody mass index 35.00 to 39.99 (685095636215039)Body mass index [BMI] 38.0-38.9, adult (Z68.38)ActiveconfirmedProblemBody mass index 40+ - severely obese (132829547)Body mass index [BMI] 40.0-44.9, adult (Z68.41)Activeconfirmed ProblemObese class II (finding) (423902849437009)Obesity, class 2 (E66.812) Activeconfirmed Vital Signs Heart Rate 74 /min 08/17/2025 Respiratory Rate16 /min08/17/20252897Dednjwef70 %08/17/2025lood pressure diastolic 90 mm Hg08/17/20254234Plkjql44 in08/17/2025lood pressure bmmxgosd454 mm Hg 08/17/20255755Ihekii342.5 lbs1MI37.11 kg/m208/17/2025 Procedures Procedure Date Ordered Date Performed Result Body Sit e Carotid Doppler 04/19/2025 04/25/2025 N/A CARDIO Stress Test - Lexiscan Bjubaif0408/17/2025N/AEKG w Interp & Report - geuomzkdn83N/A Encounters Encounter Location Date Provider Diagnosis [address] [place] [address] 06/07/2025 Conrad Sosa Spondylosis without myelopathy or radiculopathy, lumbar region M47.816 ; Other sites of candidiasis B37.89 ; Morbid (severe) obesity due to excess calories E66.01 ; Body mass index [BMI] 37.0-37.9, adult Z68.37 ; Obesity, class 2 E66.812 and Primary hypertension I10 [facility] [address] [place] [address] 07/05/2025 Conrad Valentinering Other constipation K 59.09 ; Other chronic pain G89.29 ; Pain in left knee M25.562 ; Body mass index [BMI] 37.0-37.9, adult Z68.37 ; Primary hypertension I10 ; Dysphagia, unspecified R13.10 ; Unspecified abdominal pain R10.9 ; Morbid (severe) obesity due to excess calories E66.01 and Spondylosis without myelopathy or radiculopathy, lumbar region M47.[address] [address] 08/17/2025 Conrad Sosa Chest pain, unspecif ied R07.9 ; Morbid (severe) obesity due to excess calories E66.01 ; Body mass index [BMI] 37.0-37.9, adult Z68.37 and Essential (primary) hypertension I10 [address] [place] [address] 09/12/2024 Conrad Sosa Pain in left knee M2 5.562 ; Other chronic pain G89.29 ; B12 deficiency E53.8 ; Morbid (severe) obesity due to excess calories E66.01 ; Body mass index [BMI] 38.0-38.9, adult Z68.38 ; Obesity, class 2 E66.812 ; Vitamin D deficiency, unspecified E55.9 ; Pure hypercholesterolemia E78.00 and Chronic kidney disease, stage 3b N18.32 [address] [place] [address] 10/10/2024 Conrad Sosa Encounter for screen ing [...] M1A.00X0 and Pain in right foot M79.[address] [address] 11/04/2024 Conrad Sosa Mild intermittent as thma with (acute) exacerbation J45.21 ; Vitamin D deficiency, unspecified E55.9 ; Chronic pain syndrome G89.4 ; B12 deficiency E53.8 ; Morbid (severe) obesity due to excess calories E66.01 ; Chronic kidney disease, stage 3b N18.32 and Body mass index [BMI] 37.0-37.9, adult Z68.[address] [address] 12/05/2024 Conrad Sosa B12 deficiency E53.8 ; [...] and Chronic kidney disease, stage 3b N18.[address] [address] 12/28/2024 Conrad Sosa Unilateral primary osteoarthritis, left hip M16.12 ; Pain in left knee M25.562 ; Other chronic pain G89.29 ; Abnormal weight gain R63.5 ; B12 deficiency E53.8 ; Morbid (severe) obesity due to excess calories E66.01 ; Body mass index [BMI] 38.0-38.9, adult Z68.38 ; Obesity, class 2 E66.812 and Allergic rhinitis, unspecified J30.[address] [address] 01/02/2025 Conrad Sosa Morbid (severe) obes ity due to excess calories E66.01 ; Body mass index [BMI] 38.0-38.9, adult Z68.38 ; Obesity, class 2 E66.812 ; Encounter for other preprocedural examination Z01.818 ; Unilateral primary osteoarthritis, left hip M16.12 ; Acute upper respiratory infection, unspecified J06.9 ; Dysphagia, unspecified R13.10 and Left bundle-branch block, unspecified I44.[address] [address] 02/16/2025 Conrad Sosa B12 deficiency E53.8 ; Pain in left knee M25.562 ; Other chronic pain G89.29 ; Morbid (severe) obesity due to excess calories E66.01 ; Body mass index [BMI] 38.0-38.9, adult Z68.38 ; Obesity, class 2 E66.812 and Nontoxic multinodular goiter E04.[address] [address] 03/22/2025 Conrad Sosa Candidiasis of skin and nail B37.2 ; Chest pain, unspecified R07.9 ; Abnormal weight gain R63.5 ; Morbid (severe) obesity due to excess calories E66.01 ; Body mass index [BMI] 38.0-38.9, adult Z68.38 and Obesity, class 2 E66.812 [address] [place] [address] 04/10/2025 Conrad Sosa Epigastric pain R10. 13 ; Nausea with vomiting, unspecified R11.2 ; Other constipation K59.09 ; Bitten by cat, initial encounter W55.01XA ; Morbid (severe) obesity due to excess calories E66.01 ; Body mass index [BMI] 37.0-37.9, adult Z68.37 and Obesity, class 2 E66.812 [address] [place] [address] 04/19/2025 Conrad Sosa Abnormal weight gain R63.5 [...] and Scratched by cat, initial encounter W55.03XA [address] [place] [address] 05/19/2025 Conrad Sosa Encounter for Medica re annual wellness exam Z00.00 ; Abnormal weight gain R63.5 ; Pure hypercholesterolemia E78.00 ; Peripheral vascular disease, unspecified I73.9 ; Idiopathic chronic gout without tophus, unspecified site M1A.00X0 ; Chronic fatigue, unspecified R53.82 ; Hypomagnesemia E83.42 ; Vitamin D deficiency, unspecified E55.9 ; Encounter for screening mammogram for malignant neoplasm of breast Z12.31 ; Asymptomatic menopausal state Z78.0 ; Chronic kidney disease, stage 3b N18.32 ; Hypertensive chronic kidney disease with stage 1 through stage 4 chronic kidney disease, or unspecified chronic kidney disease I12.9 ; Encounter for screening for malignant neoplasm of colon Z12.11 ; Dysphagia, unspecified R13.10 ; Morbid (severe) obesity due to excess calories E66.01 ; Body mass index [BMI] 37.0-37.9, adult Z68.37 ; Obesity, class 2 E66.812 ; Pain in left knee M25.562 ; Other chronic pain G89.29 and Gastro-esophageal reflux disease without esophagitis K21.9 [address] [place] [address] 01/12/2025 Conrad oSsa Hypotension due to d rugs I95.2 ; [...] Rash and other nonspecific skin eruption R21 [address] [place] [address] 09/08/2024 Conrad Sosa [address] [place] [address]/ani HerringJessica [facility] [address] [place] [address]/ Conrad SosaOther sites of candidiasis B37.89[address] [place] [address]/aniel HerringJessica Ville [address] [place] [address]/07/2025[facility] [address] [place] [address]/Daniamador Sosa Vitamin D deficiency, unspecified E55.9[address] [place] [address]/01/2025Daniel OcoqqewA99 deficiency E53.8[address] [place] [address]/07/2025Daniel Sosa Vitamin D deficiency, unspecified E55.9 ; B12 deficiency E53.8 ; Mild intermittent asthma with (acute) exacerbation J45.21 ; Unspecified asthma, uncomplicated J45.909 ; Idiopathic chronic gout without tophus, unspecified site M1A.00X0 ; Diarrhea, unspecified R19.7 ; Itchy skin L29.9 ; Gastro-esophageal reflux disease without esophagitis K21.9 ; Primary insomnia F51.01 ; Abnormal weight gain R63.5and Chronic pain syndrome G89.4[facility] [address] [place] [address]/07/2025[facility] [address] [place] [address]/03/2025[facility] [address] [place] [address]/[facility] [address] [place] [address]/Daniel [facility] [address] [place] [address]/11/2024[facility] [address] [place] [address]/01/2025[facility] [address] [place] [address]/06/2025[facility] [address] [place] [address]/01/2025[facility] [address] [place] [address]/08/2025[facility] [address] [place] [address]/Daniel [facility] [address] [place] [address]/[facility] [address] [place] [address]/ [facility] [place] [place] [address] 05/19/2025[facility] [address] [place] [address]/08/2025[facility] [id number] [place] [address]/12/2024Daniel HerringAbnormal weight gain R63.5 and Pain in left knee M25.562[facility] [address] [place] [address]/[facility] [id number] [place] [address]/[facility] [address] [place] [address]/Daniel HerringOther sites of candidiasis B37.89[facility] [place] [address] [place] [address]/Daniel HerringAbnormal weight gain R63.5 Assessments Encounter Date Diagnosis (ICD Code) Assessment Notes Treatment Notes Treatment Clinical Notes Section Notes 09/12/2024 Pain in left knee (ICD-10 - M25. 562) f/u ID (dr odette curiel) - continue doxy for 21 days rec weight loss rec pt call dr romero for appt oarrs ok monitor tox screen 09/12/2024Other chronic pain (ICD-10 - G89.29)10/10/2024Encounter for screening mammogram for malignant neoplasm of breast (ICD-10 - Z12.31)10/10/2024B12 deficiency (ICD-10 - E53.8) continue B12 shots monitor lab diet stable 11/04/2024Mild intermittent asthma with (acute) exacerbation (ICD-10 - J45.21) pt states she doesnt like the advair - makes her feel odd using alb oarrs ok rtc prn 11/04/2024Vitamin D deficiency, unspecified (ICD-10 - E55.9) monitor lab - adjust med if abnormal diet 5B12 deficiency (ICD-10 - E53.8) monitor lab stable 12/05/2024Morbid (severe) obesity due to excess calories (ICD-10 - E66.01) diet/exercise due to HTN 12/28/2024Unilateral primary osteoarthritis, left hip (ICD-10 - M16.12) f/u ortho for injection rec weight loss 12/28/2024Pain in left knee (ICD-10 - M25.562) oarrs ok continue pain med f/u ortho as directed rec weight loss 01/02/2025Morbid (severe) obesity due to excess calories (ICD-10 - E66.01) diet/gozyvjea24/17/2025ody mass index [BMI] 38.0-38.9, adult (ICD-10 - Z68.38) 01/12/2025Hypotension due to drugs (ICD-10 - I95.2) monitor bp resolved probably due to anesthesia from her hip injection 01/12/2025radycardia, unspecified (ICD-10 - R00.1) resolved monitor and call if worsens probably due to anesthesia from her hip injection 05/19/2025Encounter for Medicare annual wellness exam (ICD-10 - Z00.00) rec rsv vaccine rec pn vaccine q5 years rec shingrix rec flu shot yearly rtc 1 year diet/exercise eye and dental exams yearly refer for colonoscopy set up aldo/dexa labs 05/19/2025bnormal weight gain (ICD-10 - R63.5) oars ok diet/exercise rtc 1 month d/w pt that she only lost 1# and if next month is the same then we will stop the medication 02/16/2025B12 deficiency (ICD-10 - E53.8) b12 shot monthly diet/exercise monitor labs 02/16/2025Pain in left knee (ICD-10 - M25.562) oars ok continue abx and f/u ID f/u ortho as directed rec weight loss monitor tox screen 03/22/2025andidiasis of skin and nail (ICD-10 - B37.2) rtc prn keep area clean and dry rec weight loss 03/22/2025hest pain, unspecified (ICD-10 - R07.9)prob muscular and stress tutyasl6204/19/2025bnormal weight gain (ICD-10 - R63.5) oarrs ok diet/exercise rtc 1 month 04/19/2025Dizziness and giddiness (ICD-10 - R42) hydrate ?positional vs arrythmia vs carotid vs ? set up carotid US b/l rec holter - pt states she is allergic 04/10/2025Epigastric pain (ICD-10 - R10.13) ?gastritis vs PUD vs PBSO vs constipation vs gastroparesis vs viral vs ? continue ppi bid erx zofran BRAT no pop rtc prn hydrate labs ER if worsens 04/10/2025Nausea with vomiting, unspecified (ICD-10 - R11.2)erx wkbiww1106/07/2025 Spondylosis without myelopathy or radiculopathy, lumbar region (ICD-10 - M47.816) rec weight loss tx based on results ?injections vs surgeon vs ? handicap rx given x 2 06/07/2025Other sites of candidiasis (ICD-10 - B37.89) keep area clean erx diflucan rtc prn 07/05/2025Other constipation (ICD-10 - K59.09) rec miralax 1/2 dose daily and hold on bisocodyl diet rtc prn fiber 07/05/2025Other chronic pain (ICD-10 - G89.29)09/16/2024Other sites of candidiasis (ICD-10 - B37.89)11/12/2024Vitamin D deficiency, unspecified (ICD-10 - E55.9)11/22/2024B12 deficiency (ICD-10 - E53.8)11/28/2024Vitamin D deficiency, unspecified (ICD-10 - E55.9)08/17/2025hest pain, unspecified (ICD- 10 - R07.9) ER if worsens stress test to r/o ischemia ?BP related - see below 08/17/2025Morbid (severe) obesity due to excess calories (ICD-10 - E66.01) diet/szyuecha07/03/2025bnormal weight gain (ICD-10 - R63.5)08/03/2025Other sites of candidiasis (ICD-10 - B37.89)08/08/2025bnormal weight gain (ICD-10 - R63.5)06/21/2025Pain in left knee (ICD-10 - M25.562)08/17/2025ody mass index [BMI] 37.0-37.9, adult (ICD-10 - Z68.37)11/28/2024B12 deficiency (ICD-10 - E53.8)07/05/2025Pain in left knee (ICD-10 - M25.562) oars ok f/u ortho and ID as directed rec weight loss 06/07/2025Morbid (severe) obesity due to excess calories (ICD-10 - E66.01) diet/pothvrnb60/23/2025Other constipation (ICD-10 - K59.09) erx dulcolox diet continue with fiber 04/19/2025Unspecified abdominal pain (ICD-10 - R10.9) monitor prob IBS rec better eating fiber refer for colonoscopy 03/22/2025bnormal weight gain (ICD-10 - R63.5) oarrs ok rtc 1 month diet/exercise 02/16/2025Other chronic pain (ICD-10 - G89.29)05/19/2025Pure hypercholesterolemia (ICD-10 - E78.00) labs diet/exercise 01/12/2025Morbid (severe) obesity due to excess calories (ICD-10 - E66.01) diet/qchdybdc34/17/2025Obesity, class 2 (ICD-10 - E66.812)12/28/2024Other chronic pain (ICD-10 - G89.29)12/05/2024ody mass index [BMI] 37.0-37.9, adult (ICD-10 - Z68.37)5Chronic pain syndrome (ICD-10 - G89.4) pt sees surgeon in about 10 days oarrs ok monitor tox screen decrease pain med use when further tx determined for knee 10/10/2024Morbid (severe) obesity due to excess calories (ICD-10 - E66.01) diet/exercise due to HTN 09/12/2024B12 deficiency (ICD-10 - E53.8) shot given today monitor lab 09/12/2024Morbid (severe) obesity due to excess calories (ICD-10 - E66.01) diet/exercise due to HTN 10/10/2024ody mass index [BMI] 38.0-38.9, adult (ICD-10 - Z68.38)11/04/2024B12 deficiency (ICD-10 - E53.8) monitor lab diet stable 12/05/2024Obesity, class 2 (ICD-10 - E66.812)12/28/2024bnormal weight gain (ICD-10 - R63.5) increase med diet/exercise 01/02/2025Encounter for other preprocedural examination (ICD-10 - Z01.818) EKG today with LBBB and PVC d/w pt and preop pt medically cleared for her L hip injection in 3 days - note to be faxed to [phone] 01/12/2025ody mass index [BMI] 38.0-38.9, adult (ICD-10 - Z68.38)05/19/2025 Peripheral vascular disease, unspecified (ICD-10 - I73.9)02/16/2025Morbid (severe) obesity due to excess calories (ICD-10 - E66.01) diet/exercise due to HTN 03/22/2025Morbid (severe) obesity due to excess calories (ICD-10 - E66.01) diet/exercise due to heart dz 04/19/2025Morbid (severe) obesity due to excess calories (ICD-10 - E66.01) diet/exercise due to HTN 04/10/2025itten by cat, initial encounter (ICD-10 - W55.01XA) continue doxy she is on for her knee rtc if s/s of streaking/f/warmth/etc 06/07/2025ody mass index [BMI] 37.0-37.9, adult (ICD-10 - Z68.37)07/05/2025ody mass index [BMI] 37.0-37.9, adult (ICD-10 - Z68.37)11/28/2024Mild intermittent asthma with (acute) exacerbation (ICD-10 - J45.21)08/17/2025Essential (primary) hypertension (ICD-10 - I10) bp check daily goal <130/80 diet/exercise uncontrolled - rec medication 11/28/2024Unspecified asthma, uncomplicated (ICD-10 - J45.909)07/05/2025Primary hypertension (ICD-10 - I10) monitor bp for now goal <130/80 diet/exercise call with logs in 1 month ?midodrine 06/07/2025Obesity, class 2 (ICD-10 - E66.812)04/10/2025Morbid (severe) obesity due to excess calories (ICD-10 - E66.01)diet//02/2025ody mass index [BMI] 37.0-37.9, adult (ICD-10 - Z68.37)03/22/2025ody mass index [BMI] 38.0- 38.9, adult (ICD-10 - Z68.38)02/16/2025ody mass index [BMI] 38.0-38.9, adult (ICD-10 - Z68.38)05/19/2025Idiopathic chronic gout without tophus, 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) diet monitor uric acid - goal <6 01/12/2025Obesity, class 2 (ICD-10 - E66.812)01/02/2025Unilateral primary osteoarthritis, left hip (ICD-10 - M16.12) rec weight loss f/u ortho as directed for injection 12/28/2024B12 deficiency (ICD-10 - E53.8) rtc as directed diet monitor lab 12/05/2024Pain in left knee (ICD-10 - M25.562) continue pain meds stable rec weight loss f/u ortho to see how much her L hip OA is causing L knee pains 11/04/2024Morbid (severe) obesity due to excess calories (ICD-10 - E66.01) diet/exercise due to HTN/CHF/CKD 10/10/2024Obesity, class 2 (ICD-10 - E66.812)09/12/2024ody mass index [BMI] 38.0-38.9, adult (ICD-10 - Z68.38)09/12/2024Obesity, class 2 (ICD-10 - E66.812) 4Pain in left knee (ICD-10 - M25.562) f/u ortho as directed rec weight loss continue pain med prn rtc 3 months oarrs ok 5Chronic kidney disease, stage 3b (ICD-10 - N18.32) monitor bmp and urine microalbumin rec seeing nephrology stable bp control rec farxiga 12/05/2024Other chronic pain (ICD-10 - G89.29)12/28/2024Morbid (severe) obesity due to excess calories (ICD-10 - E66.01) 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 5Acute upper respiratory infection, unspecified (ICD-10 - J06.9) monitor for now call if s/s worsen rec claritin/flonase otc 01/12/2025Other ill-defined heart diseases (ICD-10 - I51.89) f/u cardio as directed stable DD monitor bp 5Chronic fatigue, unspecified (ICD-10 - R53.82)diet/dqdrzjon96/01/2025 Obesity, class 2 (ICD-10 - E66.812)03/22/2025Obesity, class 2 (ICD-10 - E66.812) 04/19/2025Obesity, class 2 (ICD-10 - E66.812)04/10/2025ody mass index [BMI] 37.0-37.9, adult (ICD-10 - Z68.37)06/07/2025Primary hypertension (ICD-10 - I10) controlled off meds - will monitor bp check daily goal <130/80 diet/exercise d/w pt that if she is asymptomatic then her BP's are ok 07/05/2025Dysphagia, unspecified (ICD-10 - R13.10) f/u for EGD as directed diet prob stricture and dilation needed 11/28/2024Idiopathic chronic gout without tophus, 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)11/28/2024Diarrhea, unspecified (ICD-10 - R19.7)07/05/2025Unspecified abdominal pain (ICD-10 - R10.9) monitor prob bowel related - see above, as well as, monitor for s/s of skin candidiasis - keep folds dry and clean 04/10/2025Obesity, class 2 (ICD-10 - E66.812)04/19/2025B12 deficiency (ICD-10 - E53.8) continue b12 qmonth and monitor lab diet 02/16/2025Nontoxic multinodular goiter (ICD-10 - E04.2) monitor US yearly stable 05/19/2025Hypomagnesemia (ICD-10 - E83.42) labs - change tx if needed stable 01/12/2025Unilateral primary osteoarthritis, left hip (ICD-10 - M16.12)f/u ortho after hip dpqvwwovc13/17/2025Dysphagia, unspecified (ICD-10 - R13.10) rec EGD pt to call her ENT - dr santoro - for appt diet 12/28/2024ody mass index [BMI] 38.0-38.9, adult (ICD-10 - Z68.38)12/05/2024 Unilateral primary osteoarthritis, left hip (ICD-10 - M16.12) f/u ortho for injection next month rec weight loss ?LINDSAY needed 11/04/2024ody mass index [BMI] 37.0-37.9, adult (ICD-10 - Z68.37)10/10/2024 Other chronic pain (ICD-10 - G89.29)09/12/2024Vitamin D deficiency, unspecified (ICD-10 - E55.9) rec vit D 50k qweek monitor lab 09/12/2024ure hypercholesterolemia (ICD-10 - E78.00) rec lipitor 10mg daily diet/exercise uncontrolled 10/10/2024Vitamin D deficiency, unspecified (ICD-10 - E55.9)uncontrolled but just started on tx - monitor lab and adjust med if nlmskm4212/05/2024Essential (primary) hypertension (ICD-10 - I10) bp check daily controlled for age but meets criteria for HTN diet/exercise monitor labs meds if worsens 12/28/2024Obesity, class 2 (ICD-10 - E66.812)01/02/2025Left bundle-branch block, unspecified (ICD-10 - I44.7) rec pt f/u cardio soon and yearly bp check daily rec weight loss ?stress test/echo needed due to h/o CHF in past 01/12/2025Pain in left knee (ICD-10 - M25.562) f/u ortho as directed continue abx 05/19/2025Vitamin D deficiency, unspecified (ICD-10 - E55.9) lab - change tx if needed stable 04/19/2025Other specified symptoms and signs involving the circulatory and respiratory systems (ICD-10 - R09.89)tx based on omjsbjo6807/05/2025Morbid (severe) obesity due to excess calories (ICD-10 - E66.01)diet/rvxiulnm37/10/2025 Itchy skin (ICD-10 - L29.9)11/28/2024Gastro-esophageal reflux disease without esophagitis (ICD-10 - K21.9)07/05/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, lumbar region (ICD-10 - M47.816) rec weight loss rec PT or pain management if MRI denied 04/19/2025Encounter for screening for malignant neoplasm of colon (ICD-10 - Z12.11)05/19/2025Encounter for screening mammogram for malignant neoplasm of breast (ICD-10 - Z12.31)01/12/2025Other chronic pain (ICD-10 - G89.29)12/28/2024 Allergic rhinitis, unspecified (ICD-10 - J30.9) continue claritin/flonase rec singulair if s/s worsen rtc prn 12/05/2024nesthesia of skin (ICD-10 - R20.0) rec C spine xray and b/l UE EMG ?carpal tunnel vs cervical 10/10/2024Other constipation (ICD-10 - K59.09) diet continue fiber rec miralax daily rtc prn 09/12/2024hronic kidney disease, stage 3b (ICD-10 - N18.32) monitor f/u neph as directed - I dont think she has seen in awhile rec farxiga 10/10/2024Idiopathic chronic gout without tophus, 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) controlled diet uric acid yearly - goal <7 12/05/2024Paresthesia of skin (ICD-10 - R20.2)see above01/12/2025hronic kidney disease, unspecified (ICD-10 - N18.9)monitor bmp05/19/2025symptomatic menopausal state (ICD-10 - Z78.0)04/19/2025Scratched by cat, initial encounter (ICD-10 - W55.03XA) monitor now and use abx oint daily call if worsens pt already on abx daily for her L knee infection so we will not add another one 11/28/2024Primary insomnia (ICD-10 - F51.01)11/28/2024bnormal weight gain (ICD- 10 - R63.5)05/19/2025hronic kidney disease, stage 3b (ICD-10 - N18.32) monitor bmp and urine microalbumin yearly strongly rec pt keep neph appt in 06/2025 for eval and tx bp control 01/12/2025nemia in chronic kidney disease (ICD-10 - D63.1)njivfkb8412/05/2024 Chronic kidney disease, stage 3b (ICD-10 - N18.32) continue meds rec farxiga rec nephrology 4Pain in right foot (ICD-10 - M79.671) rec xray to r/o stress fx tylenol prn 01/12/2025Rash and other nonspecific skin eruption (ICD-10 - R21) no s/s of zoster monitor avoid itching 05/19/2025Hypertensive chronic kidney disease with stage 1 through stage 4 chronic kidney disease, or unspecified chronic kidney disease (ICD-10 - I12.9) bp check daily goal <130/80 diet/exercise monitor bmp and urine yearly rtc 6 months 11/28/2024hronic pain syndrome (ICD-10 - G89.4)05/19/2025Encounter for screening for malignant neoplasm of colon (ICD-10 - Z12.11)05/19/2025Dysphagia, unspecified (ICD-10 - R13.10) diet refer for egd to r/o stricture 05/19/2025Morbid (severe) obesity due to excess calories (ICD-10 - E66.01) diet/exercise due to HTN 05/19/2025ody mass index [BMI] 37.0-37.9, adult (ICD-10 - Z68.37)05/19/2025 Obesity, class 2 (ICD-10 - E66.812)05/19/2025Pain in left knee (ICD-10 - M25.562) f/u ortho as directed oarrs ok monitor percocet use rec weight loss 05/19/2025Other chronic pain (ICD-10 - G89.29)05/19/2025Gastro-esophageal reflux disease without esophagitis (ICD-10 - K21.9) diet stable 11/04/20246188Woabv41/17/2025Other rec palliative care as she has multiple medical conditions and multiple meds that need monitored closely rtc 3 months Plan Of Treatment Pending Test Test Name Order Date CMP (COMPLETE METABOLIC PANEL) FERRITIN 08/12/2024 IRON, TOTAL 08/12/2024 MAGNESIUM 05/19/2025 LIPID PANEL (CHOL/TRIG/HDL/LDL) 05/19/20 25 LIPID PANEL (CHOL/TRIG/HDL/LDL) 06/15/20 24 T3 FREE (T3FR) 05/19/2025 T4 FREE (T4FR) 05/19/2025 TSH 05/19/2025 URIC ACID 06/15/2024 URIC ACID 05/19/2025 VITAMIN D, 25 LEVEL (TOTAL) 06/15/2024 VITAMIN D, 25 LEVEL (TOTAL) 05/19/2025 DEXA Axial Skeleton (hips, pelvis, spine )* 03/05/2023 DEXA Axial Skeleton (hips, pelvis, spine )* 05/19/2025 MRI Shoulder RT w/o contrast 02/17/2024 EKG w Interp & Report - performed 2024 MRI Lumbar Spine w/o contrast 06/07/2025 CARDIO Stress Test - Lexiscan Nuclear Echocardiogram 2D M Mode w/ Doppler (jose sure RVSP) 11/27/2023 C DIFF TOX PCR STOOL 07/08/2023 VITAMIN B12 LEVEL AND FOLATE (FOLIC ACID ) 06/15/2024 MAMM SCREEN BILAT TIRSO 3D GLOBAL* 2024 MAMM SCREEN BILAT TIRSO 3D GLOBAL* 2023 CMP (COMP MET GONZALEZ) w/eGFR CKD-EPI 2024 CBC WITH DIFF 05/19/2025 MICROALBUMIN w CREAT RATIO 05/19/2025 Next Appt Details Provider Name:Conrad batres, 09/08/2025 10:45:00 AM, [address] [place], [address], Insurance Providers Payer Name Payer Address Payer Phone Subscriber Number Group Number Insured Name Patient Relationship to Insured Coverage Start Date Coverage End Date [employer] [address] [place], [place] [id number] Hayley Padronelf - patient is the [id number] [address] [place], [place] [id number], SusanSelf - patient is the [id number] 2022 Medications Administered Medication Instructions Date of Administration Dosage Notes Cyanocobalamin bAYcjjcxszmxhryo40/22/20221 xYUefeookcgwatzl78/20/20221 mL Uxfsqqwpwtmfam27/28/20221 lOCjwmioipxomabg61/16/20231 jZXksphywltscqhj34/13/2024 1 yKKebqbwpzkobdjm63/19/20241 mLpatient brings own e24Galpmgqwmatfsn07/28/20241 dRYmnhbwyenuyvjv67/23/20241 zNVngqbxbyrpqrwg30/25/20241 mLCyanocobalamin gKGfydysdujkrpda66/17/20250.5 eIAxbihkwvxdenrk17/17/20251 mL Acynzcdbkxqcbp44/12/20251 fFHesfwuymbzbsas11/01/20251 fCAukrnpuqdsfhiw97/02/2025 1 pXAzsgvsceumwfqk67/01/20251 mL Medical (General) History Medical History History ICD Code thyroid nodule asthmahistory of deep vein thormbosishistory of pulmonary emboluscobalamin deficiencygastroparesis syndromevitamin D deficiencyallergic thinitisintolerance to lactosehyperparathyroidism due to renal insufficiencyundifferentiated connective tissue diseaseosteoarthritis of right knee jointcongestive heart failureanemia in chronic kidney diseasechronic gastritismorbid obesity hyperuricemiadiverticulosisosteopeniaOSApolyp of coloninsomniagastroesophageal reflux diseaseessential hypertensionosteoarthritis of kneeL DDDlumbar canal stenosis - L3/4covidCKD-3bSurgical History Surgery Date(Month/Year) R knee replacement biopsy of thyroid02/25/2021olonoscopy +hem and diverticulosis - repeat in 5 years per note08/02/20187613ukaqkfzlnsbwyzveiytqzgdjrz50/15/2018L knee replacement and heart cathbariatric surgery -
--- OUTSIDE RECORDS SUMMARY | 2025-08-30 07:56 | XMS_ITS | Clinical Summary ---
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 Man Name Role Phone Unavailable Primary Care Provider Unavailabl e Allergies Active AllergyReactionsCriticalityNoted DateCommentsAspirinHives,Shortness Of Breath,MlwoKhlt52/17/8523Bfoflzekou90/17/2025enzalkonium ChlorideRashLow 01/02/2025 Dial soap ZjlojdpygwUtsoEyp96/17/9620Igksiokks80/17/2025 Can not take d/t kidney disease LatexHives,Itching,TvzeRwy3801/02/20250797Jjjcizkgvn79/17/6566VasijkJoubykl95/17/2025 NylonItching,HsudHhj3701/02/2025PenicillinsHives,Shortness Of Breath,Itching,Rash High01/02/20254406Snbtdbmsfde18/17/2025Sulfa AntibioticsHives,Shortness Of Breath, Itching,BycnTjej32/17/9569Txepwoqr65/17/2025Wound Dressing Csrleofr96/17/2025 bandaids Medications MedicationSigDispense QuantityRefillsLast FilledStart DateEnd DateStatus oxyCODONE 5 MG capsule Take 1 capsule by mouth every 4 hours as needed for Pain.Active temazepam (RESTORIL) 15 MG capsule Take 1 capsule by mouth nightly as needed for Sleep.Active topiramate (TOPAMAX) 200 MG tablet Take 1 tablet by mouth 2 times dailyActive pantoprazole (PROTONIX) 40 MG tablet Take 1 tablet by mouth in the morning and at bedtimeActive bumetanide (BUMEX) 1 MG tablet Take 1 tablet by mouth 2 times dailyActive allopurinol (ZYLOPRIM) 100 MG tablet Take 2 tablets by mouth dailyActive MAGNESIUM OXIDE PO Take 500 mg by mouth nightlyActive gabapentin (NEURONTIN) 300 MG capsule Take 1 capsule by mouth 3 times daily.Active Alendronate Sodium (FOSAMAX PO) Take 70 mg by mouth Once a week at 5 PM Thursday morningsActive albuterol sulfate HFA (VENTOLIN HFA) 108 (90 Base) MCG/ACT inhaler Inhale 2 puffs into the lungs every 6 hours as needed for WheezingActive polycarbophil (FIBERCON) 625 MG tablet Take 1 tablet by mouth in the morning and 1 tablet at noon and 1 tablet in the evening.Active Cholecalciferol 1.25 MG (24765 UT) TABS Take 1 capsule by mouth once a week MondaysActive cyanocobalamin 1000 MCG/ML injection Inject 1 mL into the muscle every 30 daysActive docusate sodium (COLACE) 100 MG capsule Take 1 capsule by mouth 2 times daily as needed for ConstipationActive fluconazole (DIFLUCAN) 100 MG tablet Take 1 tablet by mouth daily as needed (yeast infections)Active albuterol (PROVENTIL) (2.5 MG/3ML) 0.083% nebulizer solution Take 3 mLs by nebulization 4 times daily as needed for Wheezing 120 each 5Active albuterol sulfate HFA (VENTOLIN HFA) 108 (90 Base) MCG/ACT inhaler Inhale 2 puffs into the lungs every 6 hours as needed for Wheezing 18 g 5Active oxyCODONE-acetaminophen (PERCOCET) 5-325 MG per tablet Take 1 tablet by mouth in the morning and at bedtime.Active loratadine (CLARITIN) 10 MG tablet Take 1 tablet by mouth dailyActive fluticasone (FLONASE) 50 MCG/ACT nasal spray 1 spray by Nasal route 2 times daily as needed for AllergiesActive tiZANidine (ZANAFLEX) 4 MG tablet Take 2 tablets by mouth nightlyActive Active Problems ProblemNoted DateDiagnosed DateHypotension after kcvcncxfe62/20/2025COPD (chronic obstructive pulmonary disease)Diabetes mellitusHypertensionStage 4 chronic kidney disease Family History RelationNameStatusCommentsMotherAlive Social History Tobacco UseTypesPacks/DayYears UsedDateSmoking Tobacco: NeverSmokeless Tobacco: Never Tobacco Cessation:Counseling Given: Not Answered Alcohol UseStandard Drinks/WeekCommentsYes0 (1 standard drink = 0.6 oz pure alcohol)OcassionallyAHC UtilitiesAnswerDate RecordedIn the past 12 months has the electric, gas, oil, or water company threatened to shut off services in your home?No01/05/2025UDIT-CAnswerDate RecordedQ1: How often do you have a drink containing alcohol?Monthly or less01/05/2025Q2: How many drinks containing alcohol do you have on a typical day when you are drinking?1 or Q3: How often do you have six or more drinks on one occasion?Never01/05/2025Hunger Vital SignAnswerDate RecordedWithin the past 12 months, you worried that your food would run out before you got the money to buymore.Never true01/05/2025 Within the past 12 months, the food you bought just didn't last and you didn't have money to get more.Never true01/05/2025PRAPARE - TransportationAnswerDate RecordedIn the past 12 months, has lack of transportation kept you from medical appointments or from getting medications?No01/05/2025In the past 12 months, has lack of transportation kept you from meetings, work, or from getting things needed for daily living?No01/05/2025Housing Stability Vital SignAnswerDate RecordedIn the last 12 months, was there a time when you were not able to pay the mortgage or rent on time?No01/05/2025In the past 12 months, how many times have you moved where you were living?t any time in the past 12 months, were you homeless or living in a fdc (including now)?No01/05/2025 Food InsecurityAnswerDate RecordedWithin the past 12 months, you worried that your food would run out before you got the money to buymore.Within the past 12 months, the food you bought just didn't last and you didn't have money to get more.Interpersonal Safety Domain Source: IP Abuse ScreeningAnswerDate RecordedPhysical umexlSfmlyr74/20/2025Verbal abuseDenies 01/05/2025Emotional lwnaaTaqexf62/20/2025Financial ufohjZpeclp45/20/2025Sexual wovkzCmayad13/20/2025CommentsUnknownSex and Gender InformationValueDate RecordedSex Assigned at BirthNot on fileLegal YprPvgarw87/21/2015 7:56 PM EDT Gender IdentityNot on fileSexual OrientationNot on file Last Filed Vital Signs Vital SignReadingTime TakenCommentsBlood Vgqpizqy901/57001/06/2025 7:28 AM EDT Vkmtu9186/21/2025 7:28 AM HBWAuynpqyrpuq34.5 ??C (97.7 ??F)01/06/2025 7:28 AM EDTRespiratory Tydt604801/06/2025 7:28 AM EDTOxygen Psjvmzhdch34%01/06/2025 7:28 AM EDTInhaled Oxygen Concentration--Succif26.1 kg (214 lb)01/05/2025 3:07 PM EDT Vxiody644 cm (5' 2.99 )01/05/2025 3:07 PM EDTBody Mass Index37.9201/05/2025 3:07 PM EDT Plan of Treatment Health MaintenanceDue DateLast VrieIhtvowmwD8P test (Diabetic or Prediabetic) 1965Diabetic foot exam07/26/19650965Ylgksu68/08/1965Depression Screen 1967Diabetic Alb to Cr ratio (uACR) test1973Diabetic retinal exam 1973Hepatitis C ovlsju4907/26/1973DTaP/Tdap/Td vaccine (1 - Tdap)1974 Breast cancer nhcujn2207/26/19957263Iljnmoliwxk77/08/2000Colorectal Cancer Screen 2000FIT/FOBT: Average risk2000Fecal-DNA (Cologuard): Average risk 2000Sigmoidoscopy/CT hbunhwjqehuj08/08/2000Shingles vaccine (1 of 2) 2005DEXA (modify frequency per FRAX score)2010Respiratory Syncytial Virus (RSV) or age 60 yrs+ (1 - Risk 60-74 years 1-dose series) 2015nnual Wellness Visit (Medicare Advantage)10/19/2024Flu vaccine (#1) /, 08/26/2023, 08/07/2022, Additional history existsCOVID-19 Vaccine (2024- season)/05/2021, 01/02/2021GFR test (Diabetes, CKD 3-4, OR last GFR 15-59)Pneumococcal 50+ years Vaccine Biucqmkod26/01/2020, 08/02/2019, 07/19/2019, Additional history existsHepatitis A vaccineAged OutNo longer eligible based on patient's age to complete this topicHepatitis B vaccineAged OutNo longer eligible based on patient's age to complete this topicHib vaccineAged OutNo longer eligible based on patient's age to complete this topicMeningococcal (ACWY) vaccineAged OutNo longer eligible based on patient's age to complete this topicMeningococcal B vaccineAged OutNo longer eligible based on patient's age to complete this topicPolio vaccineAged OutNo longer eligible based on patient's age to complete this topic Procedures Procedure NamePriorityDate/TimeAssociated DiagnosisCommentsBASIC METABOLIC PANEL W/ REFLEX TO MG FOR LOW KSunquest Label Print01/05/2025 3:30 PM EDT from Last 3 Months or Most Recently Relevant to Health Maintenance Results * (ABNORMAL) Basic Metabolic Panel w/ Reflex to MG (01/05/2025 3:30 PM EDT) ComponentValueRef RangeTest MethodAnalysis TimePerformed AtPathologist GkxhskrxsFiiuro987927 - 145 mmol/L01/05/2025 3:30 PM [facility] LABPotassium4.13.7 - 5.3 mmol/L01/05/2025 3:30 PM [facility] DXXGfumlggw030(H)98 - 107 mmol/L01/05/2025 3:30 PM [facility] BRPAT99059 - 31 mmol/L01/05/2025 3:30 PM [facility] LABAnion Gap99 - 16 mmol/L01/05/2025 3:30 PM [facility] YJGFfxnoyk619(H)74 - 99 mg/dL01/05/2025 3:30 PM EDT [facility] DCQFHX471 - 23 mg/dL01/05/2025 3:30 PM [facility] LABCreatinine1.0(H)0.50 - 0.90 mg/dL01/05/2025 3:30 PM [facility] LABEst, Glom Filt Rate60(L)>60 mL/min/1.73m2 01/05/2025 3:30 PM [facility] LABComment: ? These results are not intended for use in patients <18 years of age. ? eGFR results are calculated without a race factor using the 2020 CKD-EPI equation. Careful clinical correlation is recommended, particularly when comparing to results calculated using previous equations. The CKD-EPI equation is less accurate in patients with extremes of muscle mass, extra-renal metabolism of creatine, excessive creatine ingestion, or following therapy that affects renal tubular secretion. 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
--- OUTSIDE RECORDS SUMMARY | 2025-08-30 07:56 | XMS_ITS | Clinical Summary ---
Author Organization [facility] Address [address] [place] [address] Phone Care Team Providers Care Embedded Software Design Engineer Name Role Phone Conrad Sosa DO Primary Care Provider Allergies Active AllergyReactionsCriticalityNoted DateCommentsAspirinHives,Rash,Shortness of breath,GpwlgmoFgqj41/09/2013LatexHives,Itching,OqnxTro55/06/2023Penicillins Shortness of breath,Hives,Rash,VlvzfofPeeh15/11/2009Sulfa (Sulfonamide Antibiotics)Shortness of breath,Hives,Itching,RgtdFwoj24/11/2009 Medications MedicationSigDispense QuantityRefillsLast FilledStart DateEnd DateStatus albuterol [...] heart failure 09/23/2023KD (chronic kidney disease), stage III09/23/20235909Lancdkgzk90/06/2023 Edema09/23/20230006Jkjxkdmketz92/06/2023History of bariatric xbvrpvw5109/23/2023 Obstructive sleep apnea /06/2023OPD (chronic obstructive pulmonary disease)05/30/2023Dyspnea on /09/2018Pulmonary HTN07/06/2017 Immunizations ImmunizationAdministration DatesNext DueFlu vaccine, quadrivalent, no egg protein, age 6 month or greater (FLUCELVAX)08/02/2019Influenza, Seasonal, Quadrivalent, Etwamldktf46/20/2022Influenza, Xnovywjrzms39/01/2020Influenza, injectable, MDCK, /01/2018Influenza, trivalent, adjuvanted 08/06/2020Pneumococcal conjugate vaccine, 13-valent (PREVNAR 13)07/19/2018 Pneumococcal polysaccharide vaccine, 23-valent, age 2 years and older (PNEUMOVAX 23)08/19/2020,08/02/2019,07/19/2019,12/18/2011 Social History Tobacco UseTypesPacks/DayYears UsedDateSmoking Tobacco: FormerCigarettes Smokeless Tobacco: Never Tobacco Cessation:Counseling Given: Not Answered Alcohol UseStandard Drinks/WeekCommentsYes0 (1 standard drink = 0.6 oz pure alcohol)rareCommentsUnknownSex and Gender InformationValueDate Recorded Sex Assigned at BirthNot on fileLegal VckVmkiph43/25/2022 1:39 PM ESTGender IdentityNot on fileSexual OrientationNot on file Last Filed Vital Signs Vital SignReadingTime TakenCommentsBlood Qfcpvrvf416/7009/25/2022 1:14 PM EST Jvhun340409/25/2022 1:14 PM ESTTemperature--Respiratory Rate--Oxygen Saturation-- Inhaled Oxygen Concentration--Eeosxm270 kg (248 lb)09/25/2022 1:14 PM ESTHeight 160 cm (5' 3 )09/25/2022 1:14 PM ESTBody Mass Index43.9309/25/2022 1:14 PM EST Plan of Treatment Health MaintenanceDue DateLast DoneCommentsCT Lnsfyrbtuleg1955Colonoscopy 1955olorectal Cancer Qkmumwvhe1955Creatinine Level1955FIT-DNA (Cologuard)1955FIT1955Lipid Panel1955Medicare Annual Wellness Visit (AWV)1955Potassium Level07/26/19555557Lhyrwdvltocfd1955MMR Vaccines (1 of 1 - Standard series)1956Hepatitis C Kvpeycpym11/08/1973CKD: Urine Protein Tydejinhh79/08/1974DTaP/Tdap/Td Vaccines (1 - Tdap)1977 Gqvzyvrnm11/08/1995RSV High Risk: (Elderly (60+) or Population) (1 - Risk 50-74 years 1-dose series)2005Zoster Vaccines (1 of 2)2005Bone Density Scan07/26/20204638Trhqrkmoekfgru01/22/202104/22/2020Diabetes Screening /10/2022, 09/19/2022Influenza Vaccine (#1)/, 08/19/2020, 08/06/2020, Additional history existsCOVID-19 Vaccine ( - season)2025Pneumococcal KiyrsmdXpwungnya69/01/2020, 08/02/2019, 07/19/2019, Additional history existsHIB VaccinesAged OutNo [...] Collection Method / VolumeCollection TimeReceived Time02/08/2020 [facility] RADIOLOGY SYSTEM - 02/08/2020 12:00 AM EDT ?[facility] [address], [address], [place], [place] [address] ? TRANSTHORACIC ECHOCARDIOGRAM REPORT Patient Name: ? VILMA Yepez Physician: ?? [id number] Luis Castanon MD Study Date: ? 02/08/2020 Referring Physician: Martell Castanon MD MRN/PID: ?[id number] ??PCP: ? Conrad Sosa Accession/Order#: [id number] Department Location: [facility] Date of : ?1955 Fellow: Gender: ? F ? Nurse: Admit Date: ? 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 Jennifer Ceballos RDCS, RVT Height: ? 160.02 cm CC Report to: Weight: ? 111.59 kg Study Type: ?Echocardiogram BSA: ?2.11 m2 Blood Pressure: 142 /80 mmHg Diagnosis/ICD: R06.02-Shortness of breath Indication: ?Right CHF, COPD, Diabetes, HTN, Edema, Forme Smoker, JEREMY, ? CKD-Stage IV, Morbid Obesity-s/p Gastric Bypass Procedure/CPT: Echo Complete w Full Doppler-[id number] Study Detail: The following Echo studies were [...] PIEDV: ?1.65 m/s PADP: ? 15.9 mmHg [id number] Luis Castanon MD Electronically signed on 02/08/2020 at 4:38:48 PM Final Procedure Note Conversion, Syngo - 11/21/[address], [address] [address] TRANSTHORACIC ECHOCARDIOGRAM REPORT Patient Name: VILMA GLADYS Yepez Physician: [id number] Luis Croft Study Date: 02/08/2020 Referring Physician: Martell Croft MRN/PID: [id number] PCP: Conrad Sosa Accession/Order#: [id number] Department Location: [facility] Date of : 1955 Fellow: Gender: F Nurse: Admit Date: Farmworker Grain: Jennifer Ceballos [facility],T Height: 160.02 cm CC Report to: Weight: 111.59 kg Study Type: Echocardiogram BSA: 2.11 m2 Blood Pressure: 142 /80 mmHg Diagnosis/ICD: R06.02-Shortness of breath Indication: Right CHF, COPD, Diabetes, HTN, Edema, Forme Smoker, JEREMY, CKD-Stage IV, Morbid Obesity-s/p Gastric Bypass Procedure/CPT: Echo Complete w Full Doppler-[id number] Study Detail: The following Echo studies were [...] mmHg PIEDV: 1.65 m/s PADP: 15.9 mmHg [id number] Luis Castanon MD Electronically signed on 02/08/2020 at 4:38:48 PM Final Authorizing ProviderResult TypeResult StatusSyngo ConversionCV ECHO PROCEDURES Final ResultPerforming OrganizationAddressCity/State/ZIP CodeWis[facility] Anywhere [address] from Last 3 Months or Most Recently Relevant to Health Maintenance Insurance Care Teams Team MemberRelationshipSpecialtyStart DateEnd Date Conrad Sosa DO [address] [place] [phone] [facility] - Ioutxdj47/8/22
--- OUTSIDE RECORDS SUMMARY | 2025-08-30 07:56 | XMS_ITS | Patient Health Record ---
Author Organization 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 Name Role Phone Conrad Sosa DO Primary Care Provider Unavail [place] Benoit Unavailable [phone] Araceli Edwards Unavailable [phone] S[place] Alfaro Unavailable [phone] Allergies Allergen (clinical drug ingredient) Drug/Non Drug Allergy documented on EMR Reaction Allergy Type Onset Date Status all tapes, band-aids (uncoded)blisters, swollen throatAllergyActiveLatexLatex (uncoded)UnknownAllergyActivepenicillin (uncoded)blisters, swollen throatAllergy Activesulfa (uncoded)blisters, swollen throatAllergyActiveaspirinaspirin blisters, swollen throatDrug AllergyActive Results Component Value Reference Range Notes Surgery Scheduling Reviewed date:01/06/2025 08:08:30 AM Interpretation: Performing Lab: Notes/Report: Primary Insurance Company: Medicare A[employer]na Surgeon/Assist:[place] Bryan MD/Maria De Jesus or MatToddurgery [facility], 2025Procedure:Left Hip Intra-Articular Injection CPT #17326I-Cpm: yesDiagnosis:Left Hip Pain/OAAdmission Type:outpatientAnesthesia Type/CPNB:MAC Neighborhood Conservation Officer:Naresh/Cristy lopez Reflex Culture Reviewed date:01/07/2025 09:45:26 AM Interpretation: Performing Lab: Notes/Report: [facility] [address] [place] [address] Sharepoint Designer Developer: Reagan Lea, MDColorYellowYELClarity, UrineClearCLEAR Glucose,Semi-qnt,UrNEGATIVENEG mg/dLBilirubin, SemiQt,UrNEGATIVENEGKetones, UrineNEGATIVENEG mg/dLSpec. [place],Ur<1.0051.010-1.020Blood, UrineNEGATIVENEG PH,Ur7.55.0-9.0Protein, Semi-qnt,UrNEGATIVENEG mg/dLUrobilinogen,UrNormal0.0-1.0 EU/dLNitrite,UrNEGATIVENEGLeukocyte EsteraseNEGATIVENEGPerforming Lab:see note [facility] [address] [place] [address] [place] [address] Fluid Cell Count and Diff Reviewed date:11/14/2024 01:52:35 PM Interpretation: Performing Lab: Notes/Report: [address] [place] [id number] Sharepoint Designer Developer: WILLIAM MartolorYellowAppearanceSLIGHTLY [id number] Type of Specimen.JOINT CKWRDMlnmpifkuln885 %Qbrcuqjzmu719 %Total Cells Tgbywee32 Performing Lab:see payam[address] [place] [address] Basic Metab w/rfx MG Reviewed date:01/07/2025 09:45:23 AM Interpretation: Performing Lab: Notes/Report: [facility] [address] [place] [address] [place] [address] Sharepoint Designer Developer: Reagan Lea MDNA (Sodium)352054-508 mmol/LK (Potassium)4.13.7- 5.3 mmol/OAtjrzluw47868-333 mmol/TQU46169-86 mmol/LAnion Whj84-49 mmol/LGlucose 36631-37 mg/dLBUN (Urea N)198-23 mg/dLCreatinine1.00.50-0.90 mg/jVzOXI17>60 mL/min/1.73m2 results calculated using previous equations. The CKD-EPI equation is less accurate in patients with extremes of muscle mass, These results are not intended for use in patients <18 years of age. extra-renal metabolism of creatine, excessive creatine ingestion, or following eGFR results are calculated without a race factor using the 2020 CKD-EPI equation. therapy that affects renal tubular secretion. Careful clinical correlation is recommended, particularly when comparing to BUN/CRE Psukv524-88Abtqhth2.78.6-10.4 mg/dLPerforming Lab:see [address] [place] [address] Cult Aerobe Anaerobe Reviewed date:11/21/2024 08:16:42 AM Interpretation: Performing Lab: Notes/Report: [address] [address] Sharepoint Designer Developer: Rocco Salas MD [address] [place] [address] Sharepoint Designer Developer: Gail Mart,Aerobe/Anaerobe Culture NO GROWTH 5 DAYS Direct Exam FEW NEUTROPHILS Special Requests .JOINT FLUID .KNEE LEFT NO ORGANISMS SEEN Report Status FINAL 11/19/2024 Specimen Description .JOINT FLUID .KNEE LEFT 6.8mL Performing Lab:see [address] [place] [address] Crystals Fluids Reviewed date:11/16/2024 07:56:40 AM Interpretation: Performing Lab: Notes/Report: [address] [address] Sharepoint Designer Developer: Rocco Salas MD [address] [place] [address] Sharepoint Designer Developer: Reagan Lea MDType of Specimen.JOINT FLUIDCrystals,FluidNEGATIVE NEGNO CRYSTALS SEENPathologist Review:ELECTRONICALLY SIGNED. DORIS ALDRICH M.D.Performing Lab:see [address] [place] [address] [place] [address] CBC with Diff Reviewed date:01/07/2025 09:45:11 AM Interpretation: Performing Lab: Notes/Report: [address] [place] [address] Sharepoint Designer Developer: Reagan Lea MDWBC Count4.43.5-11.3 k/uLRBC Count3.943.95-5.11 m/xLDsreeskzvo52.211.9-15.1 g/zQSforlpcbtp86.236.3-47.1 %MCV89.382.6-102.9 fLMCH 28.425.2-33.5 tiZSPM70.828.4-34.8 g/dLRDW14.011.8-14.4 %Platelet Cwanp197289-103 k/uLMPV10.38.1-13.5 fLNRBC Automated0.00.0 per 100 WBCNeutrophil (Seg)8836-65 % Umuufsjuge7373-30 %Fgjiahqq76-53 %Vffoliubmn97-8 %Immature Vmnwbnjjaje24 % Iojohvuh20-3 %Abs.Neutrophil (Seg)3.881.50-8.10 k/uLAbs. Lymph0.441.10-3.70 k/uL Abs. Monocyte0.040.10-1.20 k/uLAbs. Eosinophil0.040.00-0.44 k/uL Abs.Imm.Granulocyte0.000.00-0.30 k/uLAbs. Basophil0.000.0-0.2 k/uLMorphology NormalPerforming Lab:see [facility] [address] [place] [id number] Urinalysis Micro Reviewed date:01/07/2025 09:45:24 AM Interpretation: Performing Lab: Notes/Report: [facility] [address] [place], [place] [address] Sharepoint Designer Developer: Reagan Lea MDUrine WBC'sNone0-5 /HPFUrine RBC'sNone0-2 /HPF Epithelial cells0 TO 20-25 /HPFPerforming Lab:see [facility] [address] [place] [id number] Glucose, Whole Blood Reviewed date:01/07/2025 09:46:11 AM Interpretation: Performing Lab: Notes/Report:Glucose, Whole Hxgaq42526-797 mg/dLPerforming Lab:see noteTT - Manager Night Id information not found for OBX-specific deputy director of public works legendXR CHEST (2 VW) Reviewed date:01/07/2025 09:45:38 AM Interpretation: Performing Lab: Notes/Report: EXAMINATION: Performed at: [address] [place] [address] FLUORO FOR SURGICAL PROCEDURES Reviewed date:01/07/2025 09:45:49 AM Interpretation: Performing Lab: Notes/Report: Radiology exam is complete. No Radiologist dictation. Please follow up with ordering provider. Performed at: [address] [place] [id number] Reason For Referral Reason NO AUTH REQ.....................................01/05/25............................AETNA MCR Left Hip Intra-Articular Injection @ [facility] Diagnos is 1 Pain in left hip (M25.552) Referra l [facility] Referri ng Provide r First Name [place] Referri medardo Provide r Last Name Irvin Refertania batres Provide r Special ity Orthopedic Surgery Referre d [facility] Referre d Address [address] [facility] [place],[address],[place] S Procedu re 1 Injection major joint/bursa () Procedu re 2 NEEDLE LOCALIZATION BY XRAY (56047) General Notes Rocío Christianson 11/29/2024 01:14:04 PM >Ian Kayla 12/16/2024 11:56:08 AM > AETNA ACTIVE AND EFFECTIVE 10/19/23 PER [employer]. 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 Supervisor Referred Organization [facility] Referral Dept General Notes Myriam Coulter 10:54:17 AM >FAXED TO [facility] REFERRAL DEPT Referral Priority Routine Medications Medication SIG (Take, Route, Frequency, Duration) Notes Start Date End Date Status temazepam ActiveZanaflexNot-TakingTopamaxActivebumetanideActiveallopurinolActiveoxyCODONE Activemagnesium oxideActivecefdinirActivegabapentinActiveSymbicortNot-Taking FbjfbascNrk-SarndwfrjuyydfnlJbf-OsjlmvaftivddwnoziUsuwbuZpjtdkpFstgsixawookroc Not-Taking Social History Tobacco Use: Social History Observation Description Date Details (start date - stop date) Never Smoker NA - NA AUDIT-C (Standard) Question Answer Notes Did you have a drink containing alcohol in the p ast year? No Wnjaij3HwmcrwndrbttriAzgcamaiJywdmlv Control (Standard) Question Answer Notes Tobacco use: Nonsmoker Problems Problem Type SNOMED Code ICD Code Onset Dates Problem Status W/U Status Risk Notes Problem Localized, primary o steoarthritis of the pelvic region and thigh (610828760) Unilateral primary osteoarthritis, left hip (M16.12) ActiveconfirmedProblemKnee joint effusion (049965244)Effusion, left knee (M25.462)ActiveconfirmedProblemPain of left hip joint (finding) (047814055355653)Pain in left hip (M25.552)ActiveconfirmedProblemPain associated with internal prosthetic device (disorder) (753899646)Pain due to internal orthopedic prosthetic devices, implants and grafts, initial encounter (T84.84XA) ActiveconfirmedProblemArtificial knee joint present (970262529786)Presence of left artificial knee joint (Z96.652)ActiveconfirmedProblemArtificial knee joint present (461718171562)Presence of unspecified artificial knee joint (Z96.659) ActiveconfirmedProblemAcute pain of left knee (M25.562)Activeconfirmed Vital Signs Height 63 in 02/20/2025 Piojwk009 lbs02/20/2025BMI37.55002/20/2025 Encounters Encounter Location Date Provider Diagnosis [facility] [address] [place] [address] 09/26/2024 Sage Alfaro Acute pain of left knee M25.562 ; Pain due to internal orthopedic prosthetic devices, implants and grafts, initial encounter T84.84XA and Presence of left artificial knee joint Z96.652 [facility] [address] [facility] [address] [place] [address] 10/31/2024 Sage Alfaro Presence of left artificial knee joint Z96.652 and Pain due to internal orthopedic prosthetic devices, implants and grafts, initial encounter T84.84XA [facility] [address] [facility] [place] [address] 11/14/2024 Araceli Grace Effusion, left knee M25.462 [facility] [address] [place] [address] 11/28/2024 [place] Bryan Pain due to internal orthopedic prosthetic devices, implants and grafts, initial encounter T84.84XA ; Pain in left hip M25.552 and Presence of left artificial knee joint Z96.652 [facility] [address] [facility] [place] [address] 01/02/2025 [place] Bryan Pain in left hip M25.552 ; Pain due to internal orthopedic prosthetic devices, implants and grafts, initial encounter T84.84XA and Unilateral primary osteoarthritis, left hip M16.12 [facility] [place] [address] 01/05/2025 [place] Bryan Unilateral primary osteoarthritis, left hip M16.12 [facility] [address] [place] [address] 02/20/2025 [place] Bryan Pain due to internal [...] (ICD-10 - T84.84XA) Painful left total knee wjzamksmzezh78/09/2024cute pain of left knee (ICD-10 - M25.562)Painful left total knee relacidowoiu69/13/2025Presence of left artificial knee joint (ICD-10 - Z96.652)Painful left total knee arthroplasty 11/14/2024Effusion, left knee (ICD-10 - M25.462) Painful left TKA History of infected left TKA 11/28/2024Pain in left hip (ICD-10 - M25.552) Painful left total knee arthroplasty Left hip pain Left hip osteoarthritis 11/28/2024Pain due to internal orthopedic prosthetic devices, implants and grafts, initial encounter (ICD-10 - T84.84XA) Painful left total knee arthroplasty Left hip pain Left hip osteoarthritis 01/05/2025Unilateral primary osteoarthritis, left hip (ICD-10 - M16.12) 02/20/2025Unilateral primary osteoarthritis, left hip (ICD-10 - M16.12) Left hip pain Left hip osteoarthritis Painful left total knee arthroplasty 02/20/2025Pain due to internal orthopedic prosthetic devices, implants and grafts, initial encounter (ICD-10 - T84.84XA) Left hip pain Left hip osteoarthritis Painful left total knee arthroplasty 01/02/2025Pain in left hip (ICD-10 - M25.552) Painful left total knee arthroplasty Left hip pain Left hip osteoarthritis 01/02/2025Pain due to internal orthopedic prosthetic devices, implants and grafts, initial encounter (ICD-10 - T84.84XA) Painful left total knee arthroplasty Left hip pain Left hip osteoarthritis 02/20/2025Presence of left artificial knee joint (ICD-10 - Z96.652) Left hip pain Left hip osteoarthritis Painful left total knee arthroplasty 11/28/2024Presence of left artificial knee joint (ICD-10 - Z96.652) Painful left total knee arthroplasty Left hip pain Left hip osteoarthritis 01/02/2025Unilateral primary osteoarthritis, left hip (ICD-10 - M16.12) Painful left total knee arthroplasty Left hip pain Left hip osteoarthritis 10/31/2024Pain due to internal orthopedic prosthetic devices, implants and grafts, initial encounter (ICD-10 - T84.84XA)Painful left total knee ycemlvmmvqox85/09/2024resence of left artificial knee joint (ICD-10 - Z96.652) Painful left total knee ddwnhbuxhrix38/09/2024OtherI discussion with the patient regarding her left painful total knee arthroplasty. Overall her clinical picture appears pretty good. No obvious clinical infection. X-rays are stable. Do recommend starting with infection workup. Discussed with patient that I do not provide revision services. If we are concerned about infection we will have her see one of our joint specialist. Follow-up in 6 weeksPainful left total knee dzpibmgxueis92/13/2025OtherI discussion today with Renuka regarding her left painful total knee arthroplasty. Did review her labs. Her most recent CRP was slightly elevated as well as her ESR. No evidence clinically of infection. 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 She has been off antibiotics. We did discuss revision surgery in detail with her. She does not want to drive down to [place]. Did discuss that revision surgery would be quite extensive requiring explantation of implants and antibiotic spacer. Shewould also need a knee aspiration to confirm chronic infection prior to procedure. Will have her see Dr. Bryan for surgical consultation on revision arthroplasty. Will hold off on aspirating today until she sees him.Painful left total knee arthroplasty 11/14/2024OtherDiscussed treatment options with patient. At this time we are recommending arthrocentesis of left knee be completed today in office as patient does have history of persistent pain to the left knee aswell as elevated ESR and CRP labs. Arthrocentesis completed in office and revealed 8 cc of clear, light yellow synovial fluid which was sent to lab for cell count and culture. Patient to continue activity modification, rest, ice, elevation, and use of anti- inflammatories as needed for pain control.We are trying to obtain most recent A1c from her primary care provider. If A1c from within the last3 months available, we will get A1c lab [...] recent hold on doxycycline and if they wouldlike her to restart it. Patient gave verbal understanding of this recommendation. Painful left TKA History of infected left TKA 11/28/2024Other Discussed nonoperative and operative interventions with patient. Patient continues to have significant pain in her left knee despite nonsurgical management including ice, anti-inflammatories, activity modification, home exercise program, and physical therapy. Pain is affecting her ADLs and quality o f life. Her knee pain was reproduced with hip motion and her radiographs of her left hip demonstrate end-stage osteoarthritis of the left hip. Assessment for infection was negative regarding her lefttotal knee. Discussed with patient that she could benefit from a diagnostic and therapeutic left hip intra-articular injection to assist with pain relief and to help determine the source of her pain.Discussed procedure, risk, benefits, and alternatives including but not limited to bleeding, infection, neurovascular injury, continued pain, need for additional surgery, and risks of anesthesia. Patient understood the risks and elected to proceed with surgery. Continue ice and anti-inflammatory asneeded for pain. Activity modification as needed for pain. Activity as tolerated. All questions andconcerns were addressed. Patient was in agreement with the treatment plan. This note will serve as clinical documentation for today's visit as well as H&P purposes. Painful left total knee arthroplasty Left hip pain Left hip osteoarthritis 01/02/2025Other Discussed nonoperative and operative interventions with patient. Patient continues to have significant pain in her left knee despite nonsurgical management including ice, anti-inflammatories, activity modification, home exercise program, and physical therapy. Pain is affecting her ADLs and quality o f life. Her knee pain was reproduced with hip motion and her radiographs of her left hip demonstrate end-stage osteoarthritis of the left hip. Assessment for infection was negative regarding her lefttotal knee. Discussed with patient that she could benefit from a diagnostic and therapeutic left hip intra-articular injection to assist with pain relief and to help determine the source of her pain.Discussed procedure, risk, benefits, and alternatives including but not limited to bleeding, infection, neurovascular injury, continued pain, need for additional surgery, and risks of anesthesia. Patient understood the risks and elected to proceed with surgery. Continue ice and anti-inflammatory asneeded for pain. Activity modification as needed for pain. Activity as tolerated. All questions andconcerns were addressed. Patient was in agreement with the treatment plan. This note will serve as clinical documentation for today's visit as well as H&P purposes. Painful left total knee arthroplasty Left hip pain Left hip osteoarthritis 02/20/2025OtherDiscussed treatment options with patient. At this time [...] At this time I discussed with patient thatarleth would benefit from referral to a tertiary care center in order to discuss possible surgical options given her higher risk of perioperative infection. Will refer her to [facility] at this time. Ice and anti-inflammatory as needed for pain. Activity modification as needed for pain. Weightbearing as tolerated. All questions and concerns were addressed. Patient was in agreement with the treatmentplan. Will plan to see the patient back on as-needed basis. Left hip pain Left hip osteoarthritis Painful left total knee arthroplasty Plan Of Treatment Pending Test Test Name Order Date Crystals 11/14/2024 Hip, Bilateral, AP Pelvis and Bilateral Lateral 36027 03/11/2023 GRAM STAIN 11/14/2024 CBC W DIFF SED RATE CRP 09/26/2024 PT 03/11/2023 Cell Count Body Fluid 11/14/2024 AEROBIC AND ANAEROBIC CULTURE 11/14/2024 SCC- KNEE 4 VIEW LEFT-[id number] 09/26/2024 RSS: HIP LEFT POSTOP AP X-FIRE LAT, AP P HARRISON STANDING [id number] 11/28/2024 Insurance Providers Payer Name Payer Address Payer Phone Subscriber Number Group Number Insured Name Patient Relationship to Insured Coverage Start Date Coverage End Date Medicare A[employer]na [address] [place] [address] [id number] Shanika GRAHAM - patient is the insuredAlio Dept of [address]P [address] [place] [phone], SUSANSelf - patient is the insured Medical (General) History Medical History History ICD Code Asthma/COPD Yes Respiratory problems: YesHeart Attack: YesHeart problems: YesBlood Clots: Yes High Blood Pressure: YesKidney trouble YesSleep apnea: YesLatex Allergy YesDrug Allergies: YesBariatric Surgery: Yes, GastricCPAP Machine: YesSurgical History Surgery Date(Month/Year) Gastric bypass Biran knee replacement
--- OUTSIDE RECORDS SUMMARY | 2025-08-30 08:04 | XMS_ITS | CCD ---
Author Organization [facility]iniSyks Care Team Providers Care Decontamination Worker Name Role Phone ITALO ANN Unavailable Unavailab [...] Unavailable Unavailab le Schwbossmanr, Elda E Unavailable [phone] Unavailable Unavailable Yuan Romeo Unavailable Reynaldo Trejo Jr. Unavailable Schwerer, Elda Unavailable Schwerer, Elda Unavailable Schwerer, Elda Unavailable Laquita Hayden Unavailable Marva Hunt Unavailable Reynaldo Trejo Unavailable Wes Jason Unavailable Mabel Henderson Unavailable Schwerer, DO Elda E Primary Care Provider [phone] DIANE Epps Attending Provider DIANE Epps Other Provider Ian DO Peter Harrell Primary Care Provider [phone] MD Laquita Hayden Attending Provider SosaDO Peter Attending Provider [phone] Ricardoshemar, [facility] Deidra Holley Emergency Provider Peter Sosa Unavailable Irvin, NIURKA Serna Referring Unavailable Traboulssi, Dr. Smith Attending Unavaila ble Sosa, Dr. Peter Willis Primary Care Unava ilable Traboulssi, Dr. Smith Attending Unavaila ble Traboulssi, Dr. Smith Referring Unavaila ble Sosa, Dr. Peter Willis Primary Care Unava ilable Irvin, RN ENDOSCOPY Daphne Attending Unavailable Angelo, RN ENDOSCOPY Daphne Referring Unavailable Sosa Peter GAMING Primary [...] ., DR COOLEY Admitting Unavailable SOSA, DR PETRE Harrell Primary Care Unavailable PAY ., DR [...] Sosa, DO Peter Harrell Primary Care Provider [phone] MD Laquita Hayden Attending Provider [phone] Anusha Barber MD Unavailable Unavailable Darci, Glen Ta Referring Unavaila ble Sarmini, Glen Ta Admitting Unavaila ble Sarmini, Glen Ta Attending Unavaila ble Sarmini, Glen Ta Attending Unavaila ble SOSAPETER Referring Unavailable [...] Unavailable Sosa Peter BRYANT Primary Care Provider [phone] LEAH BARRERA Attending Unavailable DAPHNEY CONSTANTINO Attending Unavailable LEAH BARRERA Attending Unavailable Sosa Peter GAMING Attending Provider Peter Sosa Attending Unavailable SosaPeter escobedo Admitting Unavailable Sosa Peter GAMING Primary Care Provider [phone] VLAD WADE Referring Unavailable MARYCRUZVLAD Attending Unavailable SOSAPETER Primary Care Unavailable VLAD JOEL Attending Unavailable MARYCRUZVLAD Referring Unavailable SOSA, PETER Primary Care Unavailable MARYCRUZVLAD Attending Unavailable MARYCRUZVLAD Referring Unavailable SOSA, PETER Primary Care Unavailable MARYCRUZVLAD Attending Unavailable MARYCRUZVLAD Referring Unavailable SOSA, PETER Primary Care Unavailable Shannon BRYANT, Mabel Attending Provider SosaPeter escobedo DO Primary Care Provider [phone] Glen Bejarano Talrosa Admitting Unavaila ble Chaitanya Bejaranohammad Talal Attending Unavaila ble Sarminmanuel Carroll Talal Referring Unavaila ble SarminiChaitanyaCarroll Talal Attending Unavaila ble Aric BRYANT, Noms Provider Primary Care Provi rosalio Allergies Allergy ClassificationReported Allergen(s)Allergy TypeDate of OnsetReaction(s) Facility (20 sources)Latex; Translations: [LATEX]Propensity to adverse reactions to drug (disorder)52-08-5778Ctwjp, Hives, Itching, [facility] ([facility] source)penicillin; Translations: [PENICILLIN]Drug Tnnryvo41-40-9633YUZ [facility]ository (18 sources)Sulfonamides (Antibiotic); Translations: [SULFA (SULFONAMIDE ANTIBIOTICS)]Propensity to adverse reactions to drug (disorder)50-15-5211Lrewc, Shortness of breathPrem[facility] (1 source)Adhesive agent; Translations: [adhesive]Propensity to adverse reactions (disorder)79-32-8166ORMKyt [facility]ository (16 sources)Penicillins; Translations: [Penicillins]Drug allergy (disorder) 70-54-1180CSL, Hives, Hives, Rash, SwellingThe [facility] (1 source)RED RX SINUS TABLETDrug allergy (disorder)92-35-0195LIKNyb [facility]ository (20 sources)Aspirin; Translations: [Aspirin TABS]Drug Sfmghjp76-19-9149ybqgb, Shortness of breathNoi[facility] [employer] Other (2 sources)Penicillins; Translations: [Penicillins]Allergy to drug (finding) Hives, Itching, Rash, OtherMP-Perham Health HospitalScott 250 DO Work Phone: (4 sources)Sulfonamides (Antibiotic); Translations: [Sulfa Drugs]Allergy to drug (finding)Hives, Rash, ItchingW[facility] (2 sources)Latex Exam Gloves MISC; Translations: [Latex Exam Gloves MISC]Allergy to drug (finding)Hives, Itching, RashWorthington Medical CenterAntioch 250 DO Work Phone: (20 sources)Furosemide; Translations: [Lasix]Drug Rlualic69-41-7768CzdvxftWtp [facility] Repository (20 sources)nabumetoneDrug Kogvkbf04-09-6200Lssznjm, Unknown ReactionUniversity Hospitals Parma Medical Center (20 sources)Penicillin GDrug Zjwxieh80-21-3579lyxheUdowrvpgvUniversity Hospitals Parma Medical Center (20 sources)semaglutideDrug Zdycrhu09-97-6340pmookksyu, light headed, nausea [facility] (20 sources)SulfacetamideDrug AllergyhivesNoi-[facility] hospital [employer] Other (20 sources)ADHESIVES AND TAPESPropensity to adverse gfitoguyw99-67-7331Jkiagxc, [facility] (6 sources)Adhesive Tape; Translations: [Adhesive tape]Allergy to substance 89-03-6721LqjnBdunojxbvSumma Health [facility] Campus (20 sources)Aspirin; Translations: [Aspirin]Drug Gdrjjzu77-97-4004Gwcxy, Shortness Of Breath, [facility] (15 sources)IbuprofenDrug Rcakgpl10-21-1365OdlwePdhusbp Health (2 sources)nickelDrug Njgxxou34-32-5453LzwshoeBsesgoa Health (3 sources)PenicillinsDrug Msgrahj43-49-0456Iabcv, Shortness of breath, Itching, [facility] (14 sources)Sulfamethoxazole / TrimethoprimDrug Bgsjhmh86-03-2801QogheslXbzdddw Health (15 sources)traMADolDrug Qeseeez44-26-7450ZgzbguyBzttoff Health (2 sources)Adhesive Tape-SiliconesDrug Aubnsqz48-15-6446BtqwsNkxydgc Health (2 sources)Contact Metal AgentDrug Qpmrsul21-09-6522UizvyytPaotdih Health (6 sources)bandaidsPropensity to adverse reactionsCrossroads Regional Medical CenterGarpun Other (20 sources)DULoxetineDrug Ofdefcl90-44-6385Pbtgnao, Unknown ReactionUniversity Hospitals Parma Medical Center (14 sources)NylonPropensity to adverse uslmshlfu32-06-4942EnpscyiHaven Behavioral Hospital of [facility] (13 sources)SoapPropensity to adverse hedxjkqwf94-22-2048QulmBtusuri Health (1 source)nabumetoneDrug Yzwooaq33-77-6405QyiC[facility] Clinic [facility] Repository (2 sources)Sulfonamides (Antibiotic)Drug allergy (disorder)45-37-5756KrkCleveland Clinic Medina Hospital Repository (1 source)Misc-Other; Translations: [Misc-Other]Propensity to adverse reactions (disorder)43-77-6679[facility] (8 sources)FurosemideDrug Ddavahk33-82-3026IjwoLylpcxdsjSelect [facility] (2 sources)Adhesive Tape; Translations: [Tape]Propensity to adverse reactions (disorder)[facility] Repository (1 source)BenzalkoniumDrug Pecfsfu70-27-7655YnnvZawSentara Halifax Regional Hospital (13 sources)nickel sulfateDrug Yxuuufp09-85-8710AnvksafRgm [facility] (13 sources)Sulfonamides (Antibiotic)Propensity to adverse reactions to drug 17-60-6413Oykmq, Shortness Of Breath, Itching, Rash, UnknownBon [facility] (13 sources)Wound Dressing AdhesivePropensity to adverse reactions to drug 39-15-9156Tim [facility] (12 sources)FurosemideDrug Rqtkxcb35-41-6612PwelWBWM Healthcare (12 sources)nabumetoneDrug Rsidett01-02-8753VMWW Healthcare (12 sources)PenicillinsDrug Obueydd22-27-1759Zypve, Itching, Rash, Shortness of breathCedar County Memorial Hospital (12 sources)SemaglutideAllergy to ozsrnmtmx37-30-3705BYZO Healthcare (11 sources)BenzalkoniumDrug Qxfmxpb66-43-1937HgnoGCEJ Healthcare Medications Current Medications MedicationDrug Class(es)DatesSig (Normalized)Sig (Original)0.5 ML tirzepatide 10 MG/ML Auto-Injector [Mounjaro] (3 sources)Start: 43-90-6098bapvje 5 mg by subcutaneous injection every week Mounjaro 5 MG/0.5ML inject 5mg weekly Subcutaneous weekly Jul, Active Start: 52-38-9984fteyuk 5 mg by subcutaneous injection every weekMounjaro 5 MG/0.5ML inject 5mg weekly Subcutaneous weekly for 28 days Jul, Active 0.5 ML tirzepatide 15 MG/ML Auto-Injector [Mounjaro] (5 sources)Start: 49-20-9428Teqpgroq 7.5 MG/0.5ML 1 injector Subcutaneous weekly for 28 days Jul, Active0.5 ML tirzepatide 5 MG/ML Auto-Injector [Mounjaro] (8 sources)Start: 56-26-2556Bzgjscvb 2.5 MG/0.5ML 1 injector Subcutaneous weekly for 28 days Jul, ActiveStart: 23-32-8985Vczqixdf 2.5 MG/0.5ML as directed Subcutaneous Jun, Activeacetaminophen [...] oral tablet (20 sources)Opioid AgonistStart: 12-29-2023 End: 84-49-9585yopf 1 tablet by mouth every six hours as neededOxycodone- Acetaminophen 5-325 mg tablet Active 1 TAB PO Every 6 hours as needed July 12, 2025 1:59pm FreeTextSi tablet as needed Orally every 6 hrs; Note: Source Status: Taking; Provider: Agueda Valera ( ) Complies with drug therapyStart: 10-02-2022 End: 18-98-2436ukfJSVSYG-acetaminophen (PERCOCET) 5-325 mg per tablet 1 tablet Start: 17-32-9703Hrbod: 06-23-2021 End: 32-08-2025zvtp 1 tablet by mouth every six hours as needed for pain Oxycodone-Acetaminophen (Percocet) 5-325 mg tablet Discontinued 1 TAB PO Q6H as needed for pain 10 3 June 23, 2021 December 18, 2021 3:42pmStart: 05-06-2019 End: 59-99-9353aotp 1 tablet by mouth once daily as needed for painOxycodone- Acetaminophen 5-325 mg Tablet Discontinued 1 - 2 TAB PO Daily as needed for Pain May 06, 2019 12:00am December 18, 2021 3:42pm End: 78-21-6641jyoSDPJQO-acetaminophen (PERCOCET) 5-325 mg per tablet Take 1-2 tablets by mouth 2 (two) times a day if needed (pain). Max Daily Amount: 4 tablets 0 10/06/2022 Discontinued (Stop Taking at Discharge)albuterol 0.83 mg/ml inhalation solution (20 sources)beta2-Adrenergic AgonistStart: 90-48-2823qthl 2 puff(s) by inhalation every six hours as needed for wheezingalbuterol sulfate HFA (VENTOLIN HFA) 108 (90 Base) MCG/ACT inhaler Inhale 2 puffs into the lungs every 6 hours as needed for Wheezing 18 g 3 01/05/2025 ActiveStart: 35-88-4614Qejgu: 58-38-5975yblxjeekj (2.5 MG/3ML) 0.083% nebulizer solution Take 2.5 mg by nebulization every 4 (four) hours if needed 12/29/2023 ActiveStart: 12-29-2023 End: 16-12-6061ceex 3 mL by inhalation four times daily as neededAlbuterol Sulfate 2.5 mg /3 mL (0.083 %) solution for nebulization Active 2.5 MG INHALATION Four times daily as needed July 12, 2025 1:55pm FreeTextSiml Inhalation 4 times a day; Note: Source Status: Taking; Provider: Agueda Valera ( ) Complies with drug therapyStart: 03-19-2023 End: 24-76-4960hplh 2.5 mg by inhalation every six hours as needed2.5 mg, nebulization, Every 6 hours PRN, wheezing, Starting on Pina 03/19/23 at 1631Start: 10-03-2022 End: 07-73-5911ljtqlgisg HFA (6.7 g/200 puff common canister) 90 mcg/actuation inhaler 2 puffStart: 10-02-2022 End: 17-78-5414fldg 2.5 mg by inhalation every six hours as needed2.5 mg, nebulization, Every 6 hours PRN, wheezing, Starting on Pina 10/02/22 at 1416 Start: 96-74-3283qcxn 1 puff(s) by inhalation every four to [...] and 2 puffs before bedtime. Active End: 23-36-0334qmmw 1 puff(s) by inhalation every four hoursalbuterol HFA (Ventolin HFA) 90 mcg/act inhaler Inhale 1 puff every 4 (four) hours if needed 01/18/2025 Discontinued (Therapy completed) End: 43-51-9536hxrxqtlou (PROVENTIL) 2.5 MG/0.5ML NEBU nebulizer solution Take [...] acid 70 mg oral tablet (20 sources)BisphosphonateStart: 12-03-1195vnga 1 tablet by mouth every week Alendronate 70 mg Tablet Active 70 MG PO every week May 06, 2019 12:00am Complies with drug therapyalendronate (Fosamax) 70 MG tablet Take 70 mg by mouth every 7 (seven) days Activeallopurinol 100 mg oral tablet (20 sources)Xanthine Oxidase InhibitorStart: 73-91-8707qxtk 1 tablet by mouth once dailyAllopurinol 100 mg tablet Active 100 MG PO Daily July 12, 2025 2:39pm Complies with drug therapyStart: 10-12-3054pyim 200 mg by mouth once pfvto519 mg, Oral, DAILY, First dose on Pina 01/05/25 at 1345, Until Discontinued Start: 05-06-2019 End: 54-71-0747yiwz 2 tablets by mouth once dailyAllopurinol 100 mg Tablet Discontinued 200 MG PO Daily May 06, 2019 12:00am July 1252:42pm Start: 05-06-2019 End: 91-61-3182jlxj 200 mg by mouth once dailyAllopurinol Active 200 MG PO Daily May 06, 2019 12:00amazithromycin 250 mg oral tablet (8 sources)Macrolide AntimicrobialStart: 68-12-3011Epbgu: 03-66-7693pfzaveso 10 mg oral tablet (16 sources)gamma-Aminobutyric Acid-ergic AgonistStart: 30-09-2618ifox 1 tablet by mouth twice dailyBaclofen 10 mg tablet Active 10 MG PO Twice daily January 25, 2022 12:00am Complies with drug therapybenzonatate 100 mg oral capsule (2 sources)Non-narcotic AntitussiveStart: 86-00-3149gjnr 1 capsule by mouth three times daily as needed for coughBenzonatate 100 mg capsule Active 100 MG PO Three times daily as needed for cough October 27, 2024 1:00am Complies with drug therapybisacodyl 5 mg delayed release oral tablet (3 sources)Stimulant LaxativeStart: 82-94-0967ctup 1 tablet by mouth once daily Bisacodyl (Laxative (Bisacodyl)) 5 mg tablet,delayed release (DR/EC) Active 5 MG PO Daily 2024 12:00am Complies with drug therapyStart: 03-19-2023 End: 26-08-1563kvwpuebuC (DULCOLAX) suppository 10 mgStart: 10-02-2022 End: 17-83-1486ldlgsurdR (DULCOLAX) suppository 10 mgbumetanide 1 mg oral tablet (20 sources)Loop DiureticStart: 29-30-8346ssss 1 tablet by mouth twice daily Bumetanide 1 mg tablet Active 1 MG PO Twice daily July 12, 2025 12:00am Complies with drug therapyStart: 46-77-2885Qtnld: 09-30-2022 End: 06-44-1389toxa 1 mg by mouth twice daily1 mg, oral, 2 times daily, First dose on Thu03/20/23 at 0900 Regarding Diuretics - Hold if SBP < 110 ; Plan to start POD#1 Start: 71-22-5573xgqm 2 tablets by mouth every twelve hours Bumetanide 0.5 MG 2 tablet Orally TWICE A DAY for 90 days noon Mar, ActiveStart: 05-06-2019 End: 45-07-9203ckau 1 tablet by mouth twice dailyBumetanide 0.5 mg Tablet Discontinued 0.5 MG PO Twice daily May 06, 2019 12:00am December 29, 2023 10:15amcholecalciferol 0.025 mg oral capsule (20 sources)Vitamin DStart: 12-29-2023 End: 09-34-6664javp 1 capsule by mouth once dailycholecalciferol (Vitamin D-3) 25 MCG (1000 UT) capsule Take 25 mcg by mouth Daily 12/29/2023 ActiveStart: 05-06-2019 End: 06-10-6794kguz 1 capsule by mouth once dailyCholecalciferol (Vitamin D3) (Vitamin D3) 2,000 unit Capsule Discontinued 2000 UNIT PO Daily May 06, 2019 12:00am April 16, 2022 1:50pmtake 1 capsule by mouth every weekCholecalciferol 1.25 MG (03989 UT) TABS Take 1 capsule by mouth once a week Mondays Suspended Vitamin D 1000 UNIT CAPS TAKE 1 CAPSULE Daily Quantity: 0 Refills: 0 Ordered: 18-Dec-2021 DO Activeciprofloxacin 500 mg oral tablet (11 sources)Quinolone Antimicrobial End: 93-97-9416brag 1 tablet by mouth in the morningciprofloxacin (Cipro) 500 MG tablet Take 500 mg by mouth in the morning and 500 mg before bedtime. Active clindamycin 300 mg oral capsule (1 source)Lincosamide AntibacterialStart: 10-04-2022 End: 18-53-4365hlnv 1 capsule by mouth three times dailyclindamycin (CLEOCIN) 300 mg capsule Take 1 capsule (300 mg total) by mouth 3 (three) times a day for 10 days. 30 each 0 10/04/2022 10/14/2022 Activedocusate sodium 100 mg oral capsule (15 sources)Start: 79-98-8772Xzbkw: 03-19-2023 End: 57-91-3662ryyxjtzf sodium (COLACE) capsule 100 mgdoxycycline hyclate 100 mg oral capsule (15 sources)Tetracycline-class DrugStart: 03-12-0807gzuqtxhigkf (Vibramycin) 100 MG capsule 03/16/2025 ActiveStart: 17-93-9635wejx 1 capsule by mouth every twelve hoursDoxycycline Hyclate 100 MG 1 capsule Orally Twice a day for 10 day(s) February, ActiveStart: 02-26-2022 End: 32-15-4263wwno 1 tablet by mouth twice dailyDoxycycline Hyclate 100 mg tablet Discontinued 100 MG PO Twice daily 07 08February 26, 2022 12:00am April 16, 2022 1:50pmergocalciferol 1.25 mg oral capsule (1 source)Provitamin D2 CompoundStart: 10-34-6293Fgrwbyqwmcaioo (Vitamin D2) 1,250 mcg (50,000 unit) capsule Active 30463 UNIT PO every week July 12, 2025 12:00am Complies with drug therapyerythromycin ethylsuccinate 400 mg oral tablet (12 sources)Macrolide, Macrolide Antimicrobial End: 50-48-6984xjdt 1 tablet by mouth in the morningerythromycin [...] change the ordered frequency. Start: 12-29-2023 End: 06-30-0291nmbn 50 ug nasal route once daily as [...] mg oral tablet (20 sources)AntihistamineStart: 05-06-2019 End: 14-47-4399eexu 1-2 tablets by mouth three times daily [...] Adhesive Sheet 5 % (Patch) (8 sources)Start: 14-37-1243Ysrgmsbnh & Adhesive Sheet 5 % (Patch) as directed Externally DAILY Jan, Active3 ml liraglutide 6 mg/ml pen injector (2 sources)GLP-1 Receptor AgonistStart: 18-00-3340paecyz 0.3 mg by subcutaneous injection every weekSaxenda 18 MG/3ML 0.3 mg and may increase weekly to full dose if no side effects and if necessary. Subcutaneous once daily for 30 day(s) May, Activemagnesium oxide 500 mg oral capsule (7 sources)Start: 27-72-7371jtam 1 capsule by mouth once daily at bedtime Magnesium Oxide 500 mg capsule Active 500 MG PO Daily at bedtime July 12, 2025 12:00am Complies with drug therapyStart: 48-09-1713odax 400 mg by mouth once mg, Oral, DAILY, First dose on Pina 01/05/25 at 1345, Until DiscontinuedStart: 03-19-2023 End: 77-79-5459gbhc 400 mg by mouth once glcab764 mg, oral, Nightly, First dose on Pina 03/19/23 at 2100take 500 mg by mouth once dailyMAGNESIUM OXIDE PO Take 500 mg by mouth nightly SuspendedMagnesium Oxide 400 (241.3 Mg) MG TABS Take 1 tablet daily Quantity: 0 Refills: 0 Ordered: 25-Sep-2022 DO Activemeropenem 1000 mg injection (1 source)Penem AntibacterialStart: 03-24-2023 End: 56-24-4559bnbxfvvmm (MERREM) 1 gram injection Infuse 2 g into a venous catheter every 8 (eight) hours. ECF Nursing Instructions: 1)Picc Care 2)Qmon CBC,SR,Creat,CRP, fax to Dr. Angelo [phone] 3)IV ATB for 42 days 4)Call Dr[address] Angelo for F/C/S, N/V/D, rash, 5)F/U with Dr Angelo in 4-5 weeks 6) Call if released before completing IV therapy. 252 g 0 03/24/2023 05/05/2023 Activemounjaro 7.5 mg/0.5ml solution pen-injector (1 source)Start: 59-98-4614Jscwopoo 7.5 MG/0.5ML 1 injector Subcutaneous weekly for 28 days Jul, Activeondansetron 4 mg disintegrating oral tablet (20 sources)Serotonin-3 Receptor AntagonistStart: 03-19-2023 End: 02-25-2125talj 4 mg intravenously every six hours as neededondansetron (PF) (ZOFRAN) injection 4 mgStart: 10-02-2022 End: 83-14-9632huup 1 tablet by mouth every eight hours for nauseaondansetron (ZOFRAN) 4 mg tablet Take 1 tablet (4 mg total) by mouth every 8 (eight) hours if needed for nausea or vomiting for up to 7 days. 20 tablet 0 03/19/2023 03/26/2023 ActiveStart: 10-02-2022 End: 26-14-3977ekuh 4 mg intravenously every six hours as neededondansetron (PF) (ZOFRAN) injection 4 mgStart: 06-05-2021 End: 93-71-9220nmvi 1 tablet by mouth once daily as neededOndansetron 4 mg tablet,disintegrating Active 4 MG PO Daily as needed July 12, 2025 1:58pm Complies with drug therapyStart: 12-77-9216bmcs 1 tablet by mouth three times daily [...] 5 mg oral tablet (8 sources)Opioid AgonistStart: 54-75-2068Ppnvb: 03-20-2023 End: 09-61-7833pkoJLUNSU (ROXICODONE) immediate release tablet 10 mgStart: 03-19-2023 End: 85-83-8727wcqx 5 mg by mouth every four hours as needed for pain5 mg, oral, Every 4 hours PRN, Breakthrough pain, Starting on Pina 03/19/23 at 1506, Recovery & OnUnit May consider scheduled oxyCODONE instead of PRNStart: 03-19-2023 End: 22-31-9948orvRYVHWT (ROXICODONE) 5 mg immediate release tablet Take 1-2 tablets (5-10 mg total) by mouth every 4 (four) hours if needed for moderate pain or severe pain for up to 7 days. Dx: Z96.6 Max Daily Amount: 60 mg 40 tablet 0 03/19/2023 03/26/2023 ActiveStart: 10-02-2022 End: 88-21-1766qawPQNVLN (ROXICODONE) immediate release tablet 5 mgStart: 10-02-2022 End: 88-73-1313yieAZCMAP (ROXICODONE) 5 mg immediate release tablet Take [...] hours as needed for Pain. Suspended End: 31-02-3947lmwd 1 capsule by mouth once dailyoxyCODONE (OXY-IR) 5 mg immediate release capsule Take 1-2 capsules (5-10 mg total) by mouth 1 (one) time each day if needed (pain). 0 03/25/2023 Discontinued (Stop Taking at Discharge)Oxygen (1 source)Start: 82-75-2774Ixnoqb Active 0 .ROUTE December 29, 2023 12:00am 2 liters DME LincareOxygen 2 liters (20 sources)Oxygen 2 liters continuous prn ActiveOxygen 2 liters continuous ActiveOxygen unit (3 sources)Start: 45-16-7011Wrjrxo unit Active 0 .Route December 29, 2023 12:00am 2 liters DME LincareStart: 03-61-6564Hzfndb unit Active 0 .Route December 28, 2023 11:00pm 2 liters DME Lincarepantoprazole 40 mg delayed release oral tablet (20 sources)Proton Pump InhibitorStart: 05-06-2019 End: 33-69-4163bnrv 1 tablet by mouth twice dailyPantoprazole 40 mg Tablet,Delayed Release (Dr/Ec) Active 40 MG PO Twice daily May 06, 2019 12:00am Complies with drug therapytake 1 tablet by mouth before mealtime pantoprazole (ProtoNix) 20 MG EC tablet Take 20 mg by mouth in the morning. Take before meals. Activephenazopyridine hydrochloride 95 mg oral tablet (13 sources)Start: 73-14-8702gqna 2 tablets by mouth every eight hours Phenazopyridine HCl 95 MG 2 tablets after meals Orally Three times a day May, ActiveStart: 05-27-2022 End: 04-84-5996mkdw 1 tablet by mouth three times daily as needed for pain Phenazopyridine (Azo Urinary Pain Relief) 95 mg tablet Discontinued 95 MG PO Three times daily as needed for pain May 27, 2022 12:00am October 27, 2024 1:19pmStart: 57-36-6144tedn 1 tablet by mouth three times daily Phenazopyridine (Azo Urinary Pain Relief) 95 mg tablet Active 95 MG PO Three times daily May 27, 2022 12:00amphentermine hydrochloride 37.5 mg oral tablet (5 sources)Sympathomimetic Amine AnorecticStart: 85-91-9271eetn 1 tablet by mouth once daily in the morningPhentermine 37.5 mg tablet Active 37.5 MG PO Every morning July 12, 2025 12:00am Complies with drug therapy End: 69-15-0882lipo 1 capsule by mouth before mealtimephentermine 37.5 MG capsule Take 37.5 mg by mouth in the morning. Take before meals. 01/18/2025 Disc ontinued (Therapy completed)polyethylene glycol 3350 11732 mg powder for oral solution (2 sources)Osmotic LaxativeStart: 09-59-7124kwkh 8.5 g by mouth oncePolyethylene Glycol 3350 17 gram/dose powder Active 8.5 GM PO Once July 12, 2025 12:00am Complies with drug therapyStart: 03-19-2023 End: 38-59-4612xlpdjhokekby glycol (MIRALAX) packet 17 gpotassium chloride 10 meq extended release oral tablet (5 sources)Start: 88-75-1888wwbr 1 tablet by mouth every twenty-four hours Potassium Chloride ER 10 MEQ 1 tablet with food Orally Once a day for 30 day(s) Jul, ActivepredniSONE 10 mg oral tablet (14 sources)Start: 50-95-3063tvzviqXCGJ 10 MG 4 daily for 4 days, 2 daily for 4 days, then 1 daily for 4 days Orally Once a day for 12 day(s) Jan, ActiveStart: 23-92-7941Hjnxq: 35-92-0761dxsuazln no122/iron/folic acid ( MULTI ORAL) (2 sources)take [...] Activetopiramate 200 mg oral tablet (20 sources)Start: 17-75-4642asgg 1 tablet by mouth twice dailyTopiramate 200 mg tablet Active 200 MG PO Twice daily July 12, 2025 12:00am Complies with drug therapyStart: 44-17-4803gfoy 1 tablet by mouth twice rhnqi824 mg, Oral, 2 TIMES DAILY, First dose on Pina 01/05/25 at 1400, Until Discontinued, It is not recommended to crush, break, or chew immediate release tablets due to bitter taste.Start: 03-19-2023 End: 01-64-7602yqls 50 mg by mouth once daily for axbxvnzs88 mg, oral, Nightly, First dose on Pina [...] dose during or after administration)Start: 10-03-2022 End: 21-70-1669sgsl 50 mg by mouth once daily for zldffocu91 mg, oral, Daily, First dose on Thu10/03/22 [...] dose during or after administration)Start: 03-21-2022 End: 49-73-3567ktlt 2 tablets by mouth once dailyTopiramate 25 mg tablet Discontinued 25 MG PO Daily December 29, 2023 12:00am July 12, 2025 2:05pm FreeTextSig: TAKE TWO TABLETS BY MOUTH DAILY IN LATE AFTERNOON FOR 30 DAYS; Note: Source Status: Takingon hold; Refills: 1; Qty: 60 Each; Provider: Maya Jacobs LStart: 65-23-1160Rronmyk 25 MG 1 tablet in the evening, [...] Zoster Virus Nucleoside Analog DNA Polymerase InhibitorStart: 81-94-4584efaUXAywwurj (Valtrex) 1 g tablet Take 500 mg by mouth Daily 12/29/2023 ActiveStart: 12-29-2023 End: 82-89-5643snrj 1 tablet by mouth once dailyValacyclovir (Valtrex) 1 gram tablet Discontinued 1000 MG PO Daily December 29, 2023 12:00am July 12, 2025 2:03pm FreeTextSi tablet Orally Once a day; Note: Source Status: Taking; Provider:Agueda Valera ( ) End: 90-66-2648iivf 1 tablet by mouth once dailyvalACYclovir (VALTREX) [...] b12 1 mg/ml injectable solution (17 sources)Vitamin H68Qtrly: 41-12-4630eytedc 1000 ug by subcutaneous injection every 30 dayscyanocobalamin (Vitamin B-12) 1000 MCG/ML injection Inject 1,000 mcg under the skin every 30 (thirty) days 01/20/2024 ActiveStart: 06-70-0712ylyx 1 tablet by mouth once dailyCyanocobalamin (Vitamin B-12) 500 mcg tablet Active 1 TAB PO Daily December 29, 2023 12:00am FreeTextSi tablet Orally Once a day; Note: Source Status: Taking; Provider: Agueda Valera ( ) Complies with drug therapyStart: 30-50-8129tzga 1 tablet by mouth once dailyCyanocobalamin (Vitamin B-12) 500 mcg tablet Active 1 TAB PO Daily December 28, 2023 11:00pm FreeTextSi tablet Orally Once a day; Note: Source Status: Taking; Provider: Agueda Valera ( )Start: 74-73-0298xhxq 1 tablet by mouth once dailyCyanocobalamin (Vitamin [...] mg oral tablet (20 sources)Start: 01-05-2025 End: 48-58-1371qiaw 4000 mg by mouth every twenty-four jpesp465 mg, Oral, ONCE, 1 dose, On Pina 01/05/25 at 0645, Maximum dose of acetaminophen is 4000 mg from al l sources in 24 hours., Pre-op (day of surgery)Start: 03-19-2023 End: 40-90-6427mjjpccucgmaat (TYLENOL) tablet 975 mgStart: 03-19-2023 End: 43-67-6094oodx 1 tablet by mouth every six hours as neededacetaminophen (TYLENOL) tablet 650 mgStart: 03-19-2023 End: 98-00-2555auei 2 tablets by mouth three times daily as neededacetaminophen (TYLENOL) 500 mg tablet Take 2 tablets (1,000 mg total) by mouth 3 (three) times a day for 7 days. Take every 8 hours for one week, then as needed. Do not exceed 3,000 mg daily limit. 50 tablet 0 03/19/2023 03/26/2023 ActiveStart: 10-02-2022 End: 74-52-4400irgx 1000 mg by mouth every six hours1,000 mg, oral, Every 6 hours scheduled, First dose on Pina 10/02/22 at 2100, Recovery & On UnitStart: 10-02-2022 End: 70-45-1519nxfe 2 tablets by mouth three times daily as neededacetaminophen (TYLENOL) 500 mg tablet Take 2 tablets (1,000 mg total) by mouth 3 (three) times a day for 7 days. Take every 8 hours for one week, then as needed. Do not exceed 3,000 mg daily limit. 50 tablet 0 10/02/2022 10/09/2022 ActiveStart: 10-02-2022 End: 44-80-0179pqdf 1 tablet by mouth every six hours as neededacetaminophen (TYLENOL) tablet 325 mgtake 2 capsules by mouth every six hoursaluminum hydroxide 40 mg/ml / magnesium hydroxide 40 mg/ml / simethicone 4 mg/ml oral suspension (2 sources)Start: 03-19-2023 End: 64-73-6590fyqfolnu-magnesium hydroxide-simethicone (MAALOX) 200-200-20 mg/5 mL suspension 30 mLStart: 10-02-2022 End: 91-95-2831hnkdvozv-magnesium hydroxide-simethicone (MAALOX) 200-200-20 mg/5 mL suspension 30 mLapixaban 5 mg oral tablet (20 sources)Factor Xa InhibitorStart: 06-05-2021 End: 99-03-5463sxkd 1 tablet by mouth twice dailyApixaban (Eliquis) 5 mg tablet Discontinued 5 MG PO Twice daily 60 June 23, 2021 2:30am September 04, 2021 3:21pmStart: 04-30-2021 End: 96-38-1578zboh 2 tablets by mouth twice daily, then [...] Inhibitor, Nonsteroidal Anti-inflammatory Drug Start: 03-19-2023 End: 77-79-8154mxne 1 tablet by mouth twice dailyaspirin 81 mg EC tablet Take 1 tablet (81 mg total) by mouth 2 (two) times a day for 28 days. 56 each 0 03/19/2023 03/20/2023 Discontinued (Stop Taking at Discharge)Start: 10-17-2022 End: 43-73-2406btuu 1 tablet by mouth twice daily, then [...] tablet (2 sources)Cholinergic Muscarinic AgonistStart: 03-19-2023 End: 70-39-5083bsgbgtsjhlr (URECHOLINE) tablet 25 mgStart: 10-02-2022 End: 87-61-7261gegpzfvrhln (URECHOLINE) tablet 25 mgBudesonide / formoterol (20 [...] a dual occupancy room? NoStart: 10-03-2022 End: 03-49-8967wpsbainsjg-formoteroL (SYMBICORT) 160-4.5 mcg/actuation inhaler 2 puffStart: 71-67-9515bwkx 2 puff(s) by inhalation twice dailySymbicort 160-4.5 MCG/ACT 2 puffs Inhalation Twice a day for 30 days Jun, ActiveStart: 48-65-7828Djonr: 05-09-2019 End: 40-83-4073rapq 1 puff(s) by inhalation twice dailyBudesonide-Formoterol (Symbicort) 160-4.5 mcg/actuation Hfa Aerosol Inhaler Discontinued 2 PUFF INHA LATION Twice daily May 08, 2019 11:00pm January 05, 2024 1:29pmStart: 05-09-2019 End: 34-11-1519mxtb 1 puff(s) by inhalation twice dailyBudesonide-Formoterol (Symbicort) 160-4.5 mcg/actuation Hfa Aerosol Inhaler Discontinued 2 PUFF INHA LATION Twice daily May 09, 2019 12:00am January 05, 2024 2:29pmStart: 37-67-7451phoy 1 puff(s) by inhalation twice dailyBudesonide-Formoterol (Symbicort) 160-4.5 mcg/actuation Hfa Aerosol Inhaler Active 2 PUFF INHALATION Twice daily May 09, 2019 12:00am End: 98-73-0426jpih 2 puff(s) by inhalation twice dailybudesonide-formoterol (SYMBICORT) [...] meq/ml injectable solution (2 sources)Start: 03-19-2023 End: 38-58-8266xhtrbzuw Ringer's infusionStart: 10-02-2022 End: 44-73-6169iyrg 100 mL intravenously every xrgi964 mL/hr, intravenous, Continuous, Starting on Pina 10/02/22 at 1445calcium polycarbophil 625 mg oral tablet (13 sources)Start: 43-99-6379fgnu 625 mg by mouth twice mg, Oral, 2 TIMES DAILY, First dose [...] oral capsule (11 sources)Cephalosporin AntibacterialStart: 01-05-2024 End: 07-17-4765zbyr 1 mg by mouth once dailyCefdinir 300 mg capsule Discontinued MG PO Daily January 05, 2024 12:00am October 27, 2024 1:33pm FreeTextSig: as directed Orally daily; Note: Source Status: Takingon for 6 months; Provider: Agueda Valera ( )Start: 68-67-6558dgda 1 mg by mouth once dailyCefdinir Active MG PO Daily January 05, 2024 12:00am FreeTextSig: as directed Orally daily; Note: Source Status: Takingon for 6 months; Provider: Agueda Valera ( )cephalexin 500 mg oral capsule (17 sources)Cephalosporin AntibacterialStart: 10-02-2022 End: 82-91-2164ayvz 1 capsule by mouth three times dailycephalexin (KEFLEX) 500 mg capsule Take 1 capsule (500 mg total) by mouth 3 (three) times a day for3 doses. 3 capsule 0 10/02/2022 10/03/2022 ExpiredStart: 12-22-2020 End: 16-48-9076kxoq 1 capsule by mouth every six hoursCephalexin 500 mg capsule Discontinued 500 MG PO Q6H 28 December 22, 2020 1:00am April 29, 2021 10:35pm Start: 12-22-2020 End: 62-18-3249zgfz 1 capsule by mouth four times dailyCephalexin 500 mg capsule Discontinued 500 MG PO Four times daily 40 December 22, 2020 1:00am 2020 10:35pmcetirizine hydrochloride 10 mg oral tablet (13 sources)Histamine-1 Receptor AntagonistStart: 01-05-2025 End: 46-75-7752ywbe 10 mg by mouth once daily10 mg, Oral, DAILY, First dose on Pina 01/05/25 at 1430, Until Discontinuedtake 1 tablet by mouth in the morning cetirizine (ZyrTEC) 10 MG tablet Take 10 mg by mouth in the morning. Active cloNIDine hydrochloride 0.1 mg oral tablet (3 sources)Central alpha-2 Adrenergic AgonistStart: 03-19-2023 End: 56-85-1335rrlw 1 tablet by mouth every six hours as neededcloNIDine (CATAPRES) tablet 0.1 mgStart: 10-02-2022 End: 11-07-6090nioz 1 tablet by mouth every six hours as neededcloNIDine (CATAPRES) tablet 0.1 mgclopidogrel 75 mg oral tablet (20 sources)P2Y12 Platelet InhibitorStart: 09-04-2021 End: 96-82-5509jvup 1 tablet by mouth once dailyClopidogrel 75 mg Tablet Discontinued 75 MG PO Daily 30 February 28, 2022 12:59pm October 27:34pm codeine phosphate 2 mg/ml / guaiFENesin 20 mg/ml oral solution (1 source)Opioid AgonistStart: 55-56-4468huve 5 mL by mouth every six hours as needed5 mL, Oral, EVERY 6 HOURS PRN, Starting on Thu01/06/25 at 0650, Until Discontinued, Cough, Congestioncyclobenzaprine hydrochloride 10 mg oral tablet (13 sources)Muscle RelaxantStart: 10-02-2022 End: 08-29-9992aayddxhwydsrzie (FLEXERIL) tablet 10 mg12 hr dextromethorphan hydrobromide 30 mg / guaiFENesin 600 mg extended release oral tablet (1 source)Uncompetitive G-jumspf-K-aspartate Receptor Antagonist, Sigma-1 AgonistStart: 15-44-6074oxhz 1 tablet by mouth twice daily1 tablet, Oral, 2 TIMES DAILY, First dose on Thu01/06/25 at 0900, Until Discontinued, Do not crush or break.diazePAM 5 mg oral tablet (13 sources)BenzodiazepineStart: 12-29-2023 End: 51-78-1304bopc 1 tablet by mouth once daily as neededDiazepam 5 mg tablet Discontinued 5 MG PO Daily December 29, 2023 12:00am October 27, 2024 1:35pm Fr eeTextSi tablet as needed Orally Once a day; Note: Source Status: Taking; Provider: Agueda Valera ( )dimenhyDRINATE 50 mg oral tablet (1 source)Start: 01-05-2025 End: 10-10-2036xmch 1 dose by mouth once daily50 mg, Oral, ONCE, 1 dose, On Thu01/05/25 at 0645, Pre-op (day of surgery)diphenhydrAMINE (3 sources)Histamine-1 Receptor AntagonistStart: 03-19-2023 End: 90-82-7875luqm 25 mg intravenously every six hours as lfiiyq24 mg, intravenous, Every 6 hours PRN, itching, Starting on Thu03/19/23 at 1631Start: 03-19-2023 End: 65-71-9878xeqpxzmthkRBNPM (BENADRYL) capsule 25 mgStart: 10-05-2022 End: 67-13-9195xsml 1 capsule by mouth every six hours as neededdiphenhydrAMINE (BENADRYL) capsule 25 mgDULoxetine 30 mg delayed release oral capsule (9 sources)Serotonin and Norepinephrine Reuptake InhibitorStart: 12-29-2023 End: 01-33-0062cxwg 1 capsule by mouth once dailyDuloxetine 30 [...] mg/ml injection (3 sources)Opioid AgonistStart: 03-19-2023 End: 05-92-0442cgbskYEW (SUBLIMAZE) injection 50 mcgStart: 10-02-2022 End: 42-59-1010bqvzfLBR (SUBLIMAZE) injection 25 mcgStart: 10-02-2022 End: 39-26-2322xexffTOV (SUBLIMAZE) injection 50 mcgferrous sulfate 325 mg oral tablet (20 sources)Start: 05-09-2019 End: 67-74-6686issj 1 tablet by mouth once daily as [...] oral tablet (20 sources)Azole AntifungalStart: 06-05-2021 End: 27-84-8949oeyw 1 tablet by mouth once daily as neededFluconazole 100 mg Tablet Discontinued 100 MG PO Daily June 05, 2021 12:00am April 16, 2022 1:52pm as wrsfuz47 actuat fluticasone propionate 0.25 mg/actuat / salmeterol 0.05 mg/actuat dry powder inhaler (14 sources)Corticosteroid, beta2-Adrenergic AgonistStart: 01-05-2024 End: 90-86-7900Qqtuhjeztqg Propion-Salmeterol (Advair Diskus) 250-50 mcg/dose blister with device Discontinued 1 INH INHALATION Twice daily 60 30 January 05, 2024 12:00am October 27, 2024 1:35pmStart: 12-29-2023 End: 03-53-0001lzye 1 puff(s) by inhalation three times dailyFluticasone Propion-Salmeterol 232-14 mcg/actuation aerosol powdr breath activated Discontinued 1 PUFF INHALATION Three times daily December 29, 2023 12:00am October 27, 2024 1:35pm FreeTextSi puff Inhalation Twice a day; Note: Source Status: Taking; Provider: Agueda Valera ( )Start: 96-62-6351ugew 2 puff(s) by inhalation twice dailyAdvair HFA 115-21 MCG/ACT 2 puffs Inhalation Twice a day for 30 days Oct, Activetake 1 puff(s) by inhalation twice dailyFluticasone-Salmeterol 232-14 MCG/ACT 1 puff Inhalation Twice a day Activegabapentin 300 mg oral capsule (20 sources)Anti-epileptic AgentStart: 82-31-0903sjle 300 mg by mouth three times sbuwt023 mg, Oral, 3 TIMES DAILY, First dose on Pina 01/05/25 at 1400, Until DiscontinuedStart: 28-71-2685vhhr 1 dose by mouth once jzlam466 mg, Oral, ONCE, 1 dose, On Pina 01/05/25 at 0645, Pre-op (day of surgery)Start: 03-19-2023 End: 93-48-7919dudn 300 mg by mouth three times lrlhu285 mg, oral, 3 times daily, First dose on Pina 03/19/23 at 2100Start: 10-02-2022 End: 23-61-7968qnwl 300 mg by mouth three times anekr342 mg, oral, 3 times daily, First dose on Pina 10/02/22 at 2100Start: 06-11-2021 End: 15-39-9698rikz 1 tablet by mouth three times dailyGabapentin 300 mg Tablet Discontinued 300 MG PO Three times daily June 11, 2021 12:00am June 11, 2021 2:21pmStart: 79-78-2844vxak 2 capsules by mouth three times dailyGabapentin 300 mg capsule Active 300 MG PO Three times daily April 29, 2021 12:00am 2 capsules orally tid Complies with drug therapyglucagon (rdna) 1 mg injection (1 source)Antihypoglycemic AgentStart: 10-02-2022 End: 36-04-1036ruavrkfq injection 1 mg500 ml glucose 500 mg/ml injection (4 sources)Start: 10-02-2022 End: 89-36-2821elzzhvla 15 gram/59 mL oral solution 30 gStart: 10-02-2022 End: 12-98-7253beuzscah 15 gram/59 mL oral solution 15 gStart: 10-02-2022 End: 14-80-8030ovksfdeh (D50W) 50% injection 25 g0.5 ml HYDROmorphone hydrochloride 1 mg/ml prefilled syringe (2 sources)Opioid AgonistStart: 03-19-2023 End: 61-84-2806OECYZjgqhvemn (DILAUDID) injection 0.5 mgStart: 10-02-2022 End: 44-68-9528RWZYOlyccepkd (DILAUDID) injection 0.5 mginsulin lispro 100 unt/ml injectable solution (1 source)Insulin AnalogStart: 10-02-2022 End: 37-54-8871jphqtjp lispro (HumaLOG) injection 1-6 Unitslidocaine 0.05 mg/mg medicated patch (8 sources)Antiarrhythmic, Amide Local AnestheticStart: 01-25-2022 End: 42-32-9080rbbdb 1 dose topically once dailyLidocaine 5 % adhesive patch,medicated Discontinued 1 PATCH TOPICAL Daily January 25, 2022 12:00amApril 16, 2022 1:53pm leave on most painful area for up to 12 hrslisinopril 40 mg oral tablet (8 sources)Angiotensin Converting Enzyme InhibitorStart: 05-06-2019 End: 97-72-3119xdlv 1 tablet by mouth once dailyLisinopril 40 mg Tablet Discontinued 40 MG PO Daily May 06, 2019 12:00am April 29, 2021 10:36pm loratadine 10 mg oral tablet (20 sources)take 1 tablet by mouth once dailyloratadine (CLARITIN) 10 MG tablet Take 1 tablet by mouth daily SuspendedMagnesium (20 sources)Start: 04-16-2022 End: 96-98-4725uauz 1 tablet by mouth once dailyMagnesium 200 mg Tablet Discontinued 200 MG PO Daily April 16, 2022 12:00am July 12, 2025 2:03pm Start: 56-13-3860pbmm 1 tablet by mouth once dailyStart: 34-68-6963ueat 1 tablet by mouth once dailyMagnesium 200 mg Tablet Active 200 MG PO Daily April 15, 2022 11:00pmStart: 63-87-7729dwys 200 mg by mouth once dailyMagnesium Active 200 MG PO Daily April 16, 2022 12:00amtake 1 capsule by mouth once dailyMagnesium 200 MG 1 capsule with a meal Orally Once a day ActiveMagnesium Activemagnesium hydroxide 80 mg/ml oral suspension (2 sources)Start: 03-20-2023 End: 90-44-9774hnjkrlsve hydroxide (MILK OF MAGNESIA) 400 mg/5 mL suspension 30 mLStart: 10-02-2022 End: 67-92-0260eovjfcghf hydroxide (MILK OF MAGNESIA) 400 mg/5 mL suspension 30 mLmeropenem (MERREM) 1 g in sodium chloride 0.9 % 100 mL IVPB - MBP (1 source)Start: 03-20-2023 End: 68-98-5862dqxkthmrl (MERREM) 1 g in sodium chloride 0.9 % 100 mL IVPB - MBP methylPREDNISolone 4 mg oral tablet (2 sources)CorticosteroidStart: 10-27-2024 End: 92-59-0050qsnh 1 tablet by mouth onceMethylprednisolone (Medrol (Gamaliel)) 4 mg tablets,dose pack Discontinued 0 PO per package directions October 27, 2024 1:00am July 12, 2025 1:58pm PO PER PKG DIRmidodrine hydrochloride 5 mg oral tablet (20 sources)alpha-Adrenergic AgonistStart: 10-02-2022 End: 08-07-2711uzvb 2.5 mg by mouth twice daily2.5 mg, oral, 2 times daily, First dose on Pina 10/02/22 at 2100Start: 04-29-2021 End: 11-18-9868wkky 1 tablet by mouth twice dailyMidodrine 2.5 mg tablet Discontinued 2.5 MG PO Twice daily April 29, 2021 12:00am July 12, 2025 2:32pmMounjaro 2.5 MG/0.5ML Subcutaneous Solution Pen-injector (1 source)Mounjaro 2.5 MG/0.5ML Subcutaneous Solution Pen-injector as directed Quantity: 0 Refills: 0 Ordered: 25-Sep-2022 DO ActiveNaloxone (2 sources)Opioid AntagonistStart: 03-19-2023 End: 77-33-2836hghmngek (NARCAN) injection 0.4 mgStart: 10-02-2022 End: 21-67-7245qudkahaf (NARCAN) injection 0.4 mgnitrofurantoin, macrocrystals 25 mg / nitrofurantoin, monohydrate 75 mg oral capsule (13 sources)Nitrofuran AntibacterialStart: 05-27-2022 End: 76-67-5038rmig 1 capsule by mouth twice daily at mealtimeNitrofurantoin Monohyd/M-Cryst (Macrobid) 100 mg capsule Discontinued 100 MG PO Twice daily 01 05May 27, 2022 12:00am October 27, 2024 1:18pm must administer with a meal/foodStart: 95-65-9989junj 1 capsule by mouth twice daily at mealtime Nitrofurantoin Monohyd/M-Cryst (Macrobid) 100 mg capsule Active 100 MG PO Twice daily 14 May 27, 2022 12:00am must administer with a meal/foodOxygen Therapy, Adult (2 sources)Start: 03-19-2023 End: 78-07-2147Tfsdfa Therapy, AdultStart: 10-02-2022 End: 08-62-9486Ziromo Therapy, Adultpregabalin 100 mg oral capsule (9 sources)Start: 12-29-2023 End: 56-39-0567tqvu 1 capsule by mouth once dailyPregabalin 100 [...] 1 mg Tablet (8 sources)Start: 04-16-2022 End: 87-06-6501qbwy 1 tablet by mouth once daily before mealtimePrenatal Vit- Iron Fum-Folic Ac (Prena-Tab) 65 mg iron- 1 mg Tablet Discontinued 1 TAB PO Daily 2021 12:00am July 12, 2025 2:00pmStart: 99-18-4632vxau 1 tablet by mouth once daily before mealtimeStart: 43-78-4831nhqp 1 tablet by mouth once daily before mealtimePrenatal Vit-Iron Fum-Folic Ac (Prena-Tab) 65 mg iron- 1 mg Tablet Active 1 TAB PO Daily March 11:00pmStart: 04-16-2022 take 1 tablet by mouth once daily before mealtimePrenatal Vit-Iron Fum-Folic Ac (Prena-Tab) 65 mg iron- 1 mg Tablet Active 1 TAB PO Daily March 12:00am promethazine hydrochloride 25 mg rectal suppository (4 sources)PhenothiazineStart: 03-19-2023 End: 45-88-9444xwnm 1 tablet by mouth every six hours as neededpromethazine (PHENERGAN) tablet 25 mgStart: 03-19-2023 End: 42-16-8101ahkd 25 mg rectal route every six hours as neededpromethazine (PHENERGAN) suppository 25 mgStart: 10-02-2022 End: 77-71-0443ilmm 1 tablet by mouth every six hours as neededpromethazine (PHENERGAN) tablet 25 mgStart: 10-02-2022 End: 19-44-0325jled 25 mg rectal route every six hours as neededpromethazine (PHENERGAN) suppository 25 mgrivaroxaban 10 mg oral tablet (8 sources)Factor Xa InhibitorStart: 10-02-2022 End: 86-60-8346xgghorakrlm (XARELTO) tablet 10 mgsennosides, fpc 8.6 mg oral tablet (2 sources)Start: 03-19-2023 End: 37-70-8423uwzwq (SENOKOT) tablet 8.6 mgStart: 10-02-2022 End: 96-61-7678kmhid (SENOKOT) tablet 8.6 mgsodium chloride 0.111 meq/ml nasal spray (7 sources)Start: 41-89-6713ijah 1 spray(s) nasal route every four hours as needed1 spray, Each Nostril, EVERY 4 HOURS PRN, Starting on Thu01/06/25 at 0650, Until Discontinued, CongestionStart: 01-05-2025 End: 81-06-4767VzyxfCNRwas, at 100 mL/hr, CONTINUOUS, Starting on Thu01/05/25 at 1345Start: 03-20-2023 End: 60-69-5382ooujgh chloride 0.9 % flush 10 mLStart: 03-19-2023 End: 41-36-2743hogzhz chloride 0.9 % flush 10 mLStart: 03-19-2023 End: 89-46-9084rricaz chloride 0.9 % infusionStart: 10-02-2022 End: 37-62-3988yxqshh chloride 0.9 % flush 10 mLspironolactone 50 mg oral tablet (11 sources)Aldosterone AntagonistStart: 04-29-2021 End: 86-16-9780Swwhtpaeavgegu 50 mg tablet Discontinued 25 MG PO Daily April 29, 2021 12:00am September 04:22pmStart: 04-29-2021 End: 84-54-3791vblr 25 mg by mouth once dailySpironolactone Discontinued 25 MG PO Daily April 29, 2021 12:00am September 04, 2021 3:22pmSpironolactone 25 MG 1 tablet Orally Activetemazepam 15 mg oral capsule (20 sources)BenzodiazepineStart: 48-22-1621uhlr 15 mg by mouth once daily as hqatcm38 mg, Oral, NIGHTLY PRN, Starting on Thu01/05/25 at 2100, Until Discontinued, SleepStart: 11-25-4540iznd 1 capsule by mouth once daily at bedtime as neededTemazepam 30 mg Capsule Active 30 MG PO Daily at bedtime as needed for Insomnia May 06, 2019 12:00am Complies with drug therapy Tirzepatide (4 sources)Start: 12-29-2023 End: 57-53-0852uijfbw 1 mg by subcutaneous injection every weekTirzepatide 7.5 mg/0.5 mL pen injector Discontinued MG SUBCUT December 29, 2023 12:00am July 12, 2025 2:02pm FreeTextSi injector Subcutaneous weekly; Note: Source Status: Taking; Refills: 1; Qty: 2 Milliliter; Provider: Maya Jacobs LStart: 29-27-9641fulkjn 1 mg by subcutaneous injection every weekStart: 12-29-2023 inject 1 mg by subcutaneous injection every weekTirzepatide 7.5 mg/0.5 mL pen injector Active MG SUBCUT December 28, 2023 11:00pm FreeTextSi injector Subcutaneous weekly; Note: Source Status: Taking; Refills: 1; Qty: 2 Milliliter; Provider: Maya Jacobs LStart: 38-84-7930thbwua 1 mg by subcutaneous injection every weekTirzepatide Active MG SUBCUT December 29, 2023 12:00am FreeTextSi injector Subcutaneous weekly; Note: Source Status: Taking; Refills: 1; Qty: 2 Milliliter; Provider: Maya Jacobs Ltirzepatide (Mounjaro) 2.5 mg/0.5 mL pen injector (2 sources) End: 21-41-7039dwdxne 0.5 mL by subcutaneous injection every weektirzepatide [...] (MOUNJARO) 2.5 MG/0.5ML SOAJ (1 source) End: 80-41-3614Awlpsjopcfx (MOUNJARO) 2.5 MG/0.5ML SOAJ Inject into the skin once a week 01/05/2025 Discontinued (LIST CLEANUP)tiZANidine 4 mg oral tablet (20 sources)Central alpha-2 Adrenergic AgonistStart: 59-59-7908jlqa 4 mg by mouth once daily4 mg, Oral, NIGHTLY, First dose on Thu01/05/25 at 2230, Until DiscontinuedStart: 62-14-8929kbhg 2 tablets by mouth twice daily as needed Tizanidine 4 mg tablet Active 4 MG PO Twice daily December 29, 2023 12:00am FreeTextSi tablet asneeded Orally TWICE A DAY NEEDED; Note: Source Status: Taking; Provider: Agueda Valera ( ) Complies with drug therapyStart: 03-19-2023 End: 88-78-5350xayy 8 mg by mouth once daily as needed for muscle spasms8 mg, oral, Daily PRN, muscle spasms, Starting on Thu03/19/23 at 1631Start: 07-31-2021 End: 83-22-0053pbgj 1 tablet by mouth in the morning, then take 1 tablet by mouth in the eveningtiZANidine HCl - 4 MG Oral Tablet take one tabelt in the morning and one in the evening Quantity: 0Refills: 0 Ordered: 31-Jul-2021 DO Start : 31-Jul-2021 ActiveStart: 05-06-2019 End: 84-01-8887uhuj 2 tablets by mouth twice daily as neededTizanidine 4 mg Capsule Discontinued 4 MG PO Q12H as needed for Muscle Spasm May 06, 2019 12:00am January 25, 2022 8:56pm 2 tablets as needed orally twice a daytake 2 tablets by mouth once dailytiZANidine (ZANAFLEX) 4 MG tablet Take 2 tablets by mouth nightly Suspended End: 38-04-8635zpmc 1 capsule by mouth every twelve hours as neededtiZANidine (ZANAFLEX) 4 MG capsule Take 1 capsule by mouth every 12 hours as needed 01/05/2025 Discontinued (LIST CLEANUP)take 2 tablets by mouth twice daily as neededtiZANidine HCl 4 MG 2 tablet as needed Orally TWICE A DAY NEEDED Active traMADol hydrochloride 50 mg oral tablet (9 sources)Opioid AgonistStart: 03-19-2023 End: 49-51-0135hqbx 50-100 mg by mouth every six hours as neededtraMADoL (ULTRAM) 50 mg tablet Take 1-2 tablets (50-100 mg total) by mouth every 6 (six) hours if needed for moderate pain for up to 7 days. Dx: Z96.6 Max Daily Amount: 400 mg 40 tablet 0 03/19/2023 03/20/2023 Discontinued (Stop Taking at Discharge) Start: 10-02-2022 End: 23-12-8548jfvq 50-100 mg by mouth every six hours [...] tablet (2 sources)Serotonin Reuptake InhibitorStart: 03-19-2023 End: 74-69-6328kboTLLyrw (DESYREL) tablet 25 mgStart: 10-02-2022 End: 02-54-9183gsuWARciz (DESYREL) tablet 50 mg Problems Active Problems Problem ClassificationProblemDateDocumented DateEpisodic/ChronicAcute and chronic tonsillitis (12 sources)Hypertrophy of lingual tonsil; Translations: [Hypertrophy of tonsils]Onset: [id number] (20 sources)Moderate persistent asthma; Translations: [Moderate persistent asthma, uncomplicated]Onset: 07-10-2021 Resolved: 65-62-6953RrzuahxQpbhttr and circulatory congenital anomalies (12 sources)Ostium secundum type atrial septal defect; Translations: [Atrial septal defect within oval fossa]Onset: [id number] kidney disease (20 sources)Chronic kidney disease stage 3; Translations: [Chronic kidney disease, Stage III (moderate)]Onset: 07-11-2021 Resolved: 97-46-5488QhtwnevQisdtkn kidney disease (20 sources)Chronic kidney disease; Translations: [Chronic kidney disease, stage 3a]Onset: 09-25-2021 Resolved: 98-81-4994Eqwsemq obstructive pulmonary disease and bronchiectasis (17 sources)Chronic obstructive lung disease; Translations: [Chronic airway obstruction, not elsewhere classified]Onset: 504800-60-5093DkwjasrXlfdfis obstructive pulmonary disease and bronchiectasis (2 sources)Bronchitis; Translations: [Bronchitis, not specified as acute or chronic]22-84-3636ZnascskmEhlytwkvgmzgm of surgical procedures or medical care (4 sources)Hypotension following procedure; Translations: [Postprocedural hypotension]Onset: [id number]xg heart failure; nonhypertensive (20 sources)Chronic right-sided congestive heart failure; Translations: [Congestive heart failure, unspecified]Onset: 07-06-2017 Resolved: 95-56-3272UrjkznvCbtpbeov atherosclerosis and other heart disease (13 sources)Atherosclerotic heart disease of [place] coronary artery without angina pectoris; Translations: [Coronary atherosclerosis]Onset: 03-03-2013 69-52-2346CywlaeeDnonbvnllv and other anemia (20 sources)Anemia in chronic kidney disease; Translations: [Anemia in chronic kidney disease]ChronicDeficiency and other anemia (1 source)Anemia in chronic kidney diseaseOnset: 09-25-2021 Resolved: 50-25-0014FjqifwrXonwoistjt and other anemia (2 sources)Iron deficiency anemia, unspecified; Translations: [Iron deficiency anemia, unspecified]49-18-9657LfvslzjuIinzdxzs mellitus without complication (15 sources)Diabetic on diet only; Translations: [Diabetes mellitus without mention of complication, type II orunspecified type, not stated as uncontrolled] Onset: 759227-40-7057LyxnotvHnrbgajr mellitus without complication (10 sources)Other abnormal glucose; Translations: [Impaired fasting glucose] Onset: 07-11-2021 Resolved: 34-02-8483IjajwualBovapauncs disorders (20 sources)Gastroesophageal reflux disease; Translations: [Gastro-esophageal reflux disease without esophagitis]Onset: 07-06-2017 Resolved: 92-77-5065BjsvotvMghbidknu hypertension (20 sources)Hypertensive disorder; Translations: [Essential (primary) hypertension]Onset: 02-18-2012 Resolved: 41-46-0860GfyzjrnGqnw and other crystal arthropathies (20 sources)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; Translations: [Other secondary chronic gout, unspecified site, without tophus (tophi)]Onset: 04-02-2022 Resolved: 75-50-6108WsvcrhaNrcjkzlpvvac with complications and secondary hypertension (20 sources)Chronic kidney disease due to hypertension; Translations: [Hypertensive chronic kidney disease withstage 1 through stage 4 chronic kidney disease, or unspecified chronic kidney disease]Onset: 09-25-2021 Resolved: 63-13-0158FqucxziOfnchxjbdiwnw and screening for infectious disease (2 sources)Patient encounter status; Translations: [Other specified vaccination] 89-12-2982JfeatrzkIvwyxemjqqo deficiencies (3 sources)Vitamin D deficiency, unspecified; Translations: [Vitamin D deficiency]Onset: 518723-52-3197WnuiaakQtbgoobdunm deficiencies (2 sources)Cobalamin deficiency; Translations: [Deficiency of other specified B group vitamins]21-74-4667LlzgqaltIxafwjjucxsyke (20 sources)Osteoarthritis of knee; Translations: [Osteoarthritis of knee, unspecified]Onset: 11-05-2021 Resolved: 53-51-3923LzrdydeHrukz aftercare (6 sources)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; Translations: [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]Onset: 04-16-2022 Resolved: 89-31-1738DwxjgmgsPccgu aftercare (1 source)halfway (current) use of antithrombotics/antiplatelets; Translations: [CUSTODIAL ANTITHROMBOT/ANTIPLATLETS]Onset: 44-08-5468Pjjwnzkx Other aftercare (12 sources)Encounter for other orthopedic aftercareEpisodicOther aftercare (12 sources)Encounter for other specified surgical aftercareEpisodicOther connective tissue disease (2 sources)Presence of right artificial knee joint; Translations: [PRESENCE RT ARTIFICIAL K]Onset: 82-35-7763PvcucknAgqqn connective tissue disease (20 sources)Presence of left artificial knee joint; Translations: [Presence of total left knee joint prosthesis]Onset: 72-40-0806XeqfhchOcato connective tissue disease (12 sources)History of arthroplasty of left knee; Translations: [Presence of left artificial knee joint]Onset: 592454-61-0014SqroqugJxmeo connective tissue disease (12 sources)History of total knee arthroplasty; Translations: [Presence of unspecified artificial knee joint]Onset: 783379-87-1887DbfraatYesbb connective tissue disease (1 source)History of left total knee replacement; Translations: [Presence of left artificial knee joint]08-18-8748RuvyhmiEvhbi connective tissue disease (20 sources)Trochanteric bursitis, left hip; Translations: [TROCHANTERIC BURSITIS LEFT HIP]Onset: 29-75-7846ZntikhjtUbcgg diseases of kidney and ureters (20 sources)Hyperparathyroidism due to renal insufficiency; Translations: [Secondary hyperparathyroidism of renal origin]ChronicOther diseases of kidney and ureters (4 sources)Secondary hyperparathyroidism of renal origin; Translations: [SEC HYPERPARATHYROIDISM RENAL ORIGN]Onset: 09-25-2021 Resolved: 61-24-7827ApwkqamKjiom ear and sense organ disorders (4 sources)Sensorineural hearing loss, bilateral; Translations: [Sensorineural hearing loss, bilateral]26-00-0908FjldnksIrlxu ear and sense organ disorders (2 sources)Ear sensations - finding; Translations: [Other specified disorders of ear, bilateral]56-36-9979PvoizqnfUevbw ear and sense organ disorders (2 sources)Bilateral tinnitus; Translations: [Tinnitus, bilateral]03-14-2025 EpisodicOther endocrine disorders (20 sources)Hypoglycemia; Translations: [Hypoglycemia, unspecified]ChronicOther endocrine disorders (5 sources)Hypoglycemia, unspecified; Translations: [Hypoglycemia E16.2]Onset: 07-11-2021 Resolved: 19-61-6198EajztwgIpcgq endocrine disorders (2 sources)Hyperparathyroidism; Translations: [Hyperparathyroidism, unspecified] 69-38-2770XljuhesDbvmq gastrointestinal disorders (8 sources)Bariatric surgery status; Translations: [Gastric bypass status for obesity Z98.84]Onset: 07-11-2021 Resolved: 41-37-8311KztekmudMvtro lower respiratory disease (2 sources)Dyspnea; Translations: [Shortness of breath]EpisodicOther nervous system disorders (20 sources)Chronic pain; Translations: [Other chronic pain]ChronicOther nervous system disorders (7 sources)Other chronic pain; Translations: [Other chronic pain G89.29]Onset: 07-31-2021 Resolved: 85-51-9996UwityyhEtrhm nervous system disorders (4 sources)Chronic pain syndrome; Translations: [CHRONIC PAIN SYNDROME]Onset: 72-20-8652GpniiqxRvtma non-traumatic joint disorders (20 sources)Pain in left knee; Translations: [Pain, joint, knee, left]Onset: 12-21-2017 Resolved: 97-97-4116IdxajftbFsadj non-traumatic joint disorders (20 sources)Arthralgia of the lower leg; Translations: [Pain in right knee] EpisodicOther non-traumatic joint disorders (14 sources)Pain in left hip; Translations: [Left hip pain]Onset: 04-28-2025 EpisodicOther non-traumatic joint disorders (14 sources)Effusion, left knee; Translations: [Effusion, left knee]Onset: 78-31-7827RlrxgzcgLakxw non-traumatic joint disorders (2 sources)Hip pain; Translations: [Pain in left hip]04-26-6671GaxkfgasJfilo nutritional; endocrine; and metabolic disorders (20 sources)Body mass index 40+ - severely obese; Translations: [Morbid obesity] Onset: 529018-37-4747KvdztocHiita nutritional; endocrine; and metabolic disorders (20 sources)Morbid obesity; Translations: [Morbid (severe) obesity due to excess calories]Onset: 348466-74-0403NatqkisMpruz nutritional; endocrine; and metabolic disorders (20 sources)Metabolic syndrome X; Translations: [Metabolic syndrome]ChronicOther nutritional; endocrine; and metabolic disorders (4 sources)Morbid (severe) obesity due to excess calories; Translations: [Morbid obesity E66.01]Onset: 07-10-2021 Resolved: 62-53-0126QiabpokBtnbv nutritional; endocrine; and metabolic disorders (8 sources)Body mass index (BMI) 45.0-49.9, adult; Translations: [BMI 45.0-49.9, adult Z68.42]Onset: 07-11-2021 Resolved: 06-46-8257LuoysnkJioyp nutritional; endocrine; and metabolic disorders (8 sources)Metabolic syndrome; Translations: [Metabolic syndrome X E88.81]Onset: 07-11-2021 Resolved: 32-20-3758UhtsbmfFztuv nutritional; endocrine; and metabolic disorders (20 sources)Obesity; Translations: [Obesity, unspecified]ChronicOther nutritional; endocrine; and metabolic disorders (4 sources)Body mass index (BMI) 40.0-44.9, adultOnset: 05-20-2022 Resolved: 25-09-3706WrkktunIxtav nutritional; endocrine; and metabolic disorders (3 sources)Obese class II; Translations: [Obesity, Class II, BMI 35-39.9]Onset: 362796-37-2685KmspdztGwevq nutritional; endocrine; and metabolic disorders (2 sources)Hypomagnesemia; Translations: [Hypomagnesemia]71-48-7313DiqjatvAcjjp nutritional; endocrine; and metabolic disorders (2 sources)Hyperuricemia; Translations: [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 inflammatory arthritis and tophaceous disease]88-15-9250FojvfypwIcrsu upper respiratory disease (20 sources)Allergic rhinitis; Translations: [Allergic rhinitis, unspecified] Onset: 486754-86-4468FackjqgUyndi upper respiratory disease (4 sources)Allergic rhinitis, unspecified; Translations: [Allergic rhinitis J30.9]Onset: 07-10-2021 Resolved: 22-01-2580LmfwubeNvhfxd media and related conditions (2 sources)Dysfunction of bilateral eustachian tubes; Translations: [Unspecified Eustachian tube disorder, bilateral]92-45-2041KpaxjfkqJqorleabbb and visceral atherosclerosis (12 sources)Atherosclerosis of artery ; Translations: [Unspecified atherosclerosis]Onset: 213598-84-2188HpeuuzcAjthphqfv heart disease (12 sources)Pulmonary hypertension; Translations: [Pulmonary hypertension, unspecified]Onset: 318762-21-1297LaivgggQzjxysth codes; unclassified (2 sources)Sleep apnea; Translations: [Unspecified sleep apnea]ChronicResidual codes; unclassified (20 sources)Obstructive sleep apnea syndrome; Translations: [Obstructive sleep apnea (adult) (pediatric)]Onset: 815674-20-8119RxygcykKhumuvqi codes; unclassified (12 sources)Obstructive sleep apnea (adult) (pediatric); Translations: [JEREMY (obstructive sleep apnea) G47.33]Onset: 07-10-2021 Resolved: 82-18-3017KjdfpfyCxnykvzt codes; unclassified (20 sources)Insomnia; Translations: [Insomnia, unspecified]EpisodicScreening and history of mental health and substance abuse codes (20 sources)Ex-smoker; Translations: [Personal history of tobacco use]Episodic Comment on above:high school smoker;Spondylosis; intervertebral disc disorders; other back problems (20 sources)Degeneration of lumbar intervertebral disc; Translations: [Other intervertebral disc degeneration, lumbar region]Onset: 87-09-6684UjxdddeGujegyd disorders (20 sources)Nontoxic multinodular goiter; Translations: [Thyroid nodule]Onset: 77-42-1716PztahyuRbucdatgxpnm (3 sources)Unknown / UNK(Unknown)Onset: 57-07-1357Xshnodarrmpk (1 source)OTH SPEC SYSTEM INVOLV CONNECT TISS; Translations: [OTH SPEC SYSTEM INVOLV CONNECT TISS]Onset: 66-75-5677Ogyefffwjdmk (1 source)Left knee pain, unspecified zrxuwlqtsv05-82-9644 Past or Other Problems Problem ClassificationProblemDateDocumented DateEpisodic/ChronicComplication of device; implant or graft (20 sources)Loosening of knee joint prosthesis; Translations: [Mechanical loosening of internal left knee prosthetic joint, subsequent encounter]Onset: 13-90-8416QjgqvxfzWkhcqxomrq associated with dizziness or vertigo (14 sources)Dizziness; Translations: [Dizziness and giddiness]Onset: 02-19-2012 05-00-7737WtliluxbShppmwiiuo and other anemia (4 sources)Anemia, unspecified; Translations: [ANEMIA UNSPECIFIED]Onset: 09-25-2021 Resolved: 93-07-0533VejabrtiQonezqhyfz and other anemia (20 sources)Iron deficiency anemia; Translations: [Iron deficiency anemia, unspecified]Onset: 839154-87-5078LjogpjdeOzgewivrhb and other anemia (12 sources)Anemia; Translations: [Anemia, unspecified]Onset: 02-18-2012 86-93-3587YrikjykrQvhefypelcvxj (14 sources)Cervical lymphadenopathy; Translations: [Localized enlarged lymph nodes]Onset: 974117-72-4756VxdukdtjPkmsh aftercare (1 source)Encounter for follow-up examination after completed treatment for conditions other than malignant neoplasm; Translations: [Encounter for follow-up examination after completed treatment for conditionsother than malignant neoplasm]Onset: 91-68-6525SezdbomeOujga circulatory disease (20 sources)Low blood pressure; Translations: [Hypotension, unspecified]Onset: 870382-89-8347ZvyiydapEqvkk connective tissue disease (20 sources)Cramp; Translations: [Cramp and spasm]Onset: EpisodicOther connective tissue disease (12 sources)Cramp of muscle of left lower limb; Translations: [Cramp and spasm] Onset: 482314-41-1121OsukhtkeSeodx connective tissue disease (11 sources)Fibromyalgia; Translations: [Fibromyalgia]Onset: 07-06-2017 22-91-0978VvkgqageZinuv diseases of kidney and ureters (20 sources)Acute renal insufficiency; Translations: [Disorder of kidney and ureter, unspecified]Onset: 948582-18-0436CifrnhlzBcllq gastrointestinal disorders (20 sources)History of bariatric surgical procedure; Translations: [Bariatric surgery status]Onset: 649556-86-7165JucigrzqSediw lower respiratory disease (12 sources)Dyspnea on exertion; Translations: [Other forms of dyspnea]Onset: 284461-89-1252CdhfraadQyfqc lower respiratory disease (12 sources)Restrictive lung disease; Translations: [Other disorders of lung] Onset: 963806-06-1317IxsblnaiEumji non-traumatic joint disorders (1 source)Pain in right knee; Translations: [PAIN IN RIGHT KNEE]Onset: 70-59-7775RzppzxpmImorn nutritional; endocrine; and metabolic disorders (4 sources)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 inflammatory arthritis and tophaceous disease; Translations: [HU W/OSIGNS IA AND TOPGRACECEOUS DZ]Onset: 09-05-2021 Resolved: 27-96-8227XcwsnxvtOkxiq screening for suspected conditions (not mental disorders or infectious disease) (20 sources)Abnormal results of cardiovascular function studies; Translations: [Abnormal result of cardiovascular function study, unspecified]Onset: 02-19-2012 83-68-0686UcbodcbuQjwsh skin disorders (4 sources)Localized swelling, mass and lump, left lower limb; Translations: [LOC SWELL MASS LUMP LT LOWER LIMB]Onset: 49-24-5996TsieppzuYyunphcxxae and intestinal abscess (20 sources)Infectious disease of abdomen; Translations: [Peritonitis, unspecified]Onset: 263835-32-8774MycjezbfNipdlcabs; thrombophlebitis and thromboembolism (20 sources)Left lower limb vein thrombophlebitis; Translations: [Phlebitis and thrombophlebitis of other deep vessels of left lower extremity]Onset: 03-17-2023 14-06-8248QdvvozreChqtzhii codes; unclassified (14 sources)Edema; Translations: [Edema]Onset: 584494-36-4176Tybtaumo Residual codes; unclassified (8 sources)Localized edema; Translations: [Lower extremity edema R60.0]Onset: 07-25-2021 Resolved: 53-00-5010IidiyfwzWxqwecgs codes; unclassified (1 source)Insomnia, unspecified; Translations: [Insomnia, unspecified type G47.00]Onset: 07-25-2021 Resolved: 84-53-7366RlhmujrlAzxoacrj codes; unclassified (14 sources)Localized edema; Translations: [Localized edema]Onset: 05-27-2018 50-86-7005WhlexpkzLlyy and subcutaneous tissue infections (20 sources)Cellulitis; Translations: [Cellulitis, unspecified]Onset: 02-03-2024 84-36-5514PesegfztWotnkqvohxp; intervertebral disc disorders; other back problems (20 sources)Pain in thoracic spine; Translations: [Low back pain]Onset: 07-25-2021 Resolved: 07-12-1167TnlrywpzKfufykuiwolf (1 source)Z96.651Onset: 82-70-7390Isrrxqb tract infections (20 sources)Urinary tract infectious disease; Translations: [Urinary tract infection, site not specified]Onset: 541698-14-3935StqsftkgGfaft infection (20 sources)Viral disease; Translations: [Viral infection, unspecified]Onset: 962208-23-5569Tqvusijb Results Test NameValueInterpretationReference RangeFacilityMain OR Intraoperative Record on 89-11-5528Vkbn OR Intraoperative RecordMain OR Intraoperative Record IntraOp Document Type FT Summary Primary Physician: Glen Bejarano MD Finalized Date/Time: 07/17/25 10:25:56 Pt. Name: RENUKA PADRON Shaun SinghB./Sex: 1955 Female Med Rec #: [id number] Physician: Glen Bejarano MD Financial #: [id number] Pt. 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 Cutter - Primary Time In 07/13/25 08:52:00 07/13/25 [...] and tissue Entry 1 Skin Integrity Intact, [place], Warm, & Skin Abnormality No Dry Outcomes [...] Checked Yes By Julia Vaughan RN Outcomes Wy (more content not included)...[facility] Discharge Instructionson 15-88-6232Gysockbvj InstructionsDischarge Instructions RENUKA PADRON Shaun :1955 Visit [...] sulfate fluticasone nasal (fluticasone 0.05 mg/inh Nasal [place]) gabapentin (gabapentin 300 mg Cap) hydrOXYzine magnesium [...] Follow Up with Darci BRYANT, KLAUS Parsons, [facility] When: Comments: Call for any problems. If you do not have a follow-up appointment already scheduled, please call the office. Where: [address], [address] [phone] Business (1) Medications What How Much When [...] fluticasone nasal (fluticasone 0.05 mg/ inh Nasal [place]) 2 Sprays Nasal Inhalation Every day Unchanged [...] Materials Esophageal Dilatation [Image (more content not included)...[facility] CampusComment on above:Result Comment: Electronically Signed By: Jah REYNA, Megan Zayas\Date and Time Signed: 07/13/25 09:11 EDTMain OR PACU I Recordon 53-85-7220Ksci OR PACU I RecordMain OR PACU I Record PACU Phase I Document Type FT Summary Primary Physician: Glen Bejarano MD Finalized Date/Time: 07/13/25 09:43:05 Pt. Name: NEREIDA RENUKAPAYAL Mojica./Sex: 1955 Female Med Rec #: [id number] Physician: Glen Bejarano MD Financial #: [id number] Pt. Type: O Room/Bed: / Admit/Disch: 07/13/25 [...] Signatures Signed By: Gayla Mcnally RN 07/13/25 09:43NoKeenan Private HospitalMain OR Preoperative Recordon 62-55-5300Cjep OR Preoperative RecordMain OR Preoperative Record Holding Area Document Type FT Summary Primary Physician: Glen Bejarano MD Finalized Date/Time: 07/13/25 07:51:46 Pt. Name: RENUKA PADRON/Sex: 1955 Female Med Rec #: [id number] Physician: Glen Bejarano MD Financial #: [id number] Pt. Type: O Room/Bed: / Admit/Disch: 07/13/25 [...] Marita Schneider RN 07/13/25 07:51:44 Finalized By: aMrita Schneider RN Document Signatures Signed By: Marita Schneider RN 07/13/25 07:51[facility] Erythrocyte distribution width Auto (RBC) [Ratio]Ordered By: Mabel Henderson on 63-32-0171Spwqvfywbyp distribution width (RBC) [Ratio]14.1 %11.0-15.0[facility] Medical CenterGlomerular filtration rate (GFR) estimation in non- AmericanOrdered By: Mabel Henderson on 40-44-7565WEA/1.73 sq M.predicted among non-blacks MDRD (S/P/Bld) [Vol rate/Area]50 mL/min/{1.73_m2}Low>=60 mL/min/1.73m 2FSelect Medical Specialty Hospital - Boardman, IncHematocrit Auto (Bld) [Volume fraction]Ordered By: Mabel Henderson on 44-71-4808Uutlgdfhwq (Bld) [Volume fraction]38.4 %36.0-48.0[facility] CenterHemoglobin [Mass/volume] in BloodOrdered By: Mabel Henderson on 39-16-6940Kacrybznak (Bld) [Mass/Vol]12.2 g/dL12.0-16.0[facility] CenterLaboratory - Chemistry and Chemistry - challengeOrdered By: Mabel Henderson on 73-53-3981Sctojie [Mass/Vol]3.3 g/dLLow3.4-5.0[facility] Medical CenterCalcium [Mass/Vol] 8.5 mg/dL8.5-10.1FSelect Medical Specialty Hospital - Boardman, IncChloride [Moles/Vol]107 mmol/L 98-107[facility] Medical CenterCO2 [Moles/Vol]27.2 mmol/L21.0-32.0 [facility] CenterCreatinine [Mass/Vol]1.08 mg/dLHigh0.55-1.02 [facility] CenterGFR/1.73 sq M.predicted MDRD (S/P/Bld) [Vol rate/Area]mL/min/{1.73_m2}>=60 mL/min/1.73m 2FSelect Medical Specialty Hospital - Board[facility], Inc Glucose [Mass/Vol]100 mg/gX79-018IztyvaivmUniversity Hospitals Parma Medical CenterPotassium [Moles/Vol]3.9 mmol/L3.5-5.1FSelect Medical Specialty Hospital - Youngstownodium [Moles/Vol] 143 mmol/R384-897KmsrkctehUniversity Hospitals Parma Medical CenterUrea nitrogen [Mass/Vol]33.0 mg/dLHigh7.0-18.0[facility] CenterUrea nitrogen/Creatinine [Mass ratio]30.6 mg/mgUniversity Hospitals Parma Medical CenterBilirubin Ql (U)Negative NEGATIVEUniversity Hospitals Parma Medical CenterGlucose (U) [Mass/Vol]NegativeNEGATIVE [facility] CenterKetones Ql (U)NegativeNEGATIVEUniversity Hospitals Parma Medical CenterpH (U)7.5 [pH]5.0-9.0[facility] Specific gravity (U) [Rel density]1.0101.005-1.025[facility] Medical CenterUrobilinogen Qn (U)0.2 {Herrera'U}/dL0.2-1.0[facility] CenterLaboratory - Specimen informationOrdered By: Mabel Henderson on 07-03-2025 Appearance (U)CLEARCLEARFSelect Medical Specialty Hospital - Board[facility], IncColor (U)LT. YELLOW YELLOWUniversity Hospitals Parma Medical CenterLaboratory - UrinalysisOrdered By: Mabel Henderson on 18-55-1334Uosltlxyo esterase Test strip Ql (U)SMALLAbnormalNEGATIVE [facility] CenterNitrite Ql (U)NegativeNEGATIVEUniversity Hospitals Parma Medical CenterProtein (U) [Mass/Vol]29.7 mg/dLHigh<=11.9[facility] CenterProtein Ql (U)TRACE mg/dLNEG/TRACEUniversity Hospitals Parma Medical CenterLeukocytes [#/volume] corrected for nucleated erythrocytes in Blood by Automated counOrdered By: Mabel Henderson on 15-16-0907DMN corrected for nucl RBC Auto (Bld) [#/Vol]6.6 10 3/uL4.0-11.0[facility] MCH Auto (RBC) [Entitic mass]Ordered By: Mabel Henderson on 66-98-0333VPX (RBC) [Entitic mass]28.3 pg26.7-34.0[facility] Medical CenterMCHC Auto (RBC) [Mass/Vol]Ordered By: Mabel Henderson on 18-19-4255ZKZV (RBC) [Mass/Vol]31.8 g/dL 29.9-35.2FSelect Medical Specialty Hospital - Boardman, IncMCV Auto (RBC) [Entitic vol]Ordered By: Mabel Henderson on 95-68-5720JAN (RBC) [Entitic vol]89.1 fL81.0-99.0[facility] CenterNo Panel InformationOrdered By: Mabel Henderson on 63-47-4753Nkmpdsqdgzs Hormone (Intact)161 pg/aKVxzfytxj06-40GluswriivUniversity Hospitals Parma Medical CenterComment on above:Performed at: - [facility] [address] [id number] Director: Ziggy Rodney PhD, Phone: [phone] Phosphorus Level3.8 mg/dL2.6-4.7FSelect Medical Specialty Hospital - Boardman, IncUrine Occult BloodNegativeNEGUniversity Hospitals Portage Medical CenterUrine Random Creatinine 102.74 mg/dL20.00-300.00[facility] CenterPlatelet mean volume Auto (Bld) [Entitic vol]Ordered By: Mabel Henderson on 34-79-8051Kcbtrykd mean volume (Bld) [Entitic vol]9.8 fL9.5-13.5FSelect Medical Specialty Hospital - Board[facility], Inc Platelets Auto (Bld) [#/Vol]Ordered By: Mabel Henderson on 27-08-9730Rdaozjxgh (Bld) [#/Vol]250 10 3/bE648-775YskdfwnnsUniversity Hospitals Parma Medical CenterRBC Auto (Bld) [#/Vol]Ordered By: Mabel Henderson on 18-60-0751ERZ (Bld) [#/Vol]4.31 10 6/uL 4.20-5.40[facility] Medical Centererum or plasma anion gap determinationOrdered By: Mabel Henderson on 40-46-6930Bgqxe gap [Moles/Vol]12.7 mmol/LFSelect Medical Specialty Hospital - Boardman, IncUrine protein/creatinine ratioOrdered By: Mabel Henderson on 82-75-2493Qnbdwkf/Creatinine (U) [Ratio]0.29[facility] CenterAmbulatory Visit Summaryon 06-97-5534Ddjznellcl Visit Summary Ambulatory Visit Summary RENUKA PADRON [...] sulfate fluticasone nasal (fluticasone 0.05 mg/inh Nasal [place]) gabapentin (gabapentin 300 mg Cap) hydrOXYzine magnesium [...] fluticasone nasal (fluticasone 0.05 mg/ inh Nasal [place]) 2 Sprays Nasal Inhalation Every day Contact [...] if quest (more content not included)...[facility]/Clinic Noteon 06-13-2025 Gastroenterology Office/Clinic NoteGastroenterology Office/Clinic [...] examined esophagus. Empiric dilation with Delcid 54 Bah[place]ian was done, no mucosal disruption was noted [...] EGD 05/2024: Empiric dilation with Delcid 54 [place]ian - Schedule EGD with Delcid dilation to [...] tab, Oral, Daily fluticasone 0.05 mg/inh Nasal [place], 2 spray(s), Nasal, Daily gabapentin 300 mg [...] 07/19/2018 Recorded influenza virus (more content not included)...[facility] Comment on above:Result Comment: Electronically Signed By: Amanda Tyson MA\.br\Date and Time Signed: 06/13/25 10:58 EDT\.br\Electronically Co-Signed By: Darci BRYANT, Glen Ta\.br\Date and Time Co-Signed: 06/13/25 16:19 EDTC REACTIVE PROTEINon 78-39-1793TMQ High sensitivity method [Mass/Vol]4.44 mg/LNINF - 10.00 mg/LOSU Keenan Private HospitalInterpretation and review of laboratory resultsNoSutter Amador HospitalCRP [Mass/Vol] 4.44 mg/LNormal<10.00[facility] - AkronComment on above:Performed By: #### CRP #### U Keenan [facility] [address] [address]VFX,PLATELETSon 86-71-0342Kxmrnvpmtqz distribution width (RBC) [Ratio]14.2 %10.8 - 14.9 %[facility] HospitalHematocrit (Bld) [Volume fraction]39.5 %34.9 - 44.3 %[facility] HospitalHemoglobin (Bld) [Mass/Vol] 12.5 g/dL11.4 - 15.2 g/dLProMedica Defiance Regional HospitalInterpretation and review of laboratory resultsNoThe Christ HospitalMCH (RBC) [Entitic mass]27.7 pg 25.9 - 33.9 pgProMedica Defiance Regional HospitalMCHC (RBC) [Mass/Vol]31.6 g/dL31.4 - 35.9 g/dLProMedica Defiance Regional HospitalMCV (RBC) [Entitic vol]87.4 fL79.6 - 97.7 [facility] PreblePlatelet mean volume (Bld) [Entitic vol]11.6 fL8.5 - 12.2 [facility] PreblePlatelets (Bld) [#/Vol]232 10*3/uL150 - 393 K/[facility] DaytonRBC (Bld) [#/Vol]4.52 10*6/[facility] DaytonWBC (Bld) [#/Vol]8.1 10*3/uL3.99 - 11.19 K/[facility] DaytonOSU [facility] Private HospitalHematocrit (Bld) [Volume fraction]39.5 %Nhgber72.9-44.3Select [facility] Hospital - AkronComment on above:Performed By: #### HEMOGC #### [facility] (DEFAULT) [address] [place], [place] [address]Jjcuugctzp (Bld) [Mass/Vol]12.5 g/gWRjjcqr64.4-15.2[facility] Hospital - AkronComment on above:Performed By: #### HEMOGC #### [facility] (DEFAULT) [address] [place] [address]VUT (RBC) [Entitic vol]87.4 nHTnujcn63.6-97.7[facility] Hospital - AkronComment on above:Performed By: #### HEMOGC #### [facility] (DEFAULT) [address] [place] [address]Lvgw Cell Hgb27.7 rzZqdwtp56.9-33.9[facility] Hospital - AkronComment on above:Performed By: #### HEMOGC #### [facility] (DEFAULT) [address] [place] [address]Uvbn Cell Hgb Conc31.6 g/tUBjbhtg84.4-35.9[facility] - AkronComment on above:Performed By: #### HEMOGC #### [facility] (DEFAULT) [address] [place], [place] [address]Mmcsacvi mean volume (Bld) [Entitic vol]11.6 fLNormal8.5-12.2 [facility] - AkronComment on above:Performed By: #### HEMOGC #### [facility] (DEFAULT) [address] [place] [address]Wxvdwjjya (Bld) [#/Vol]232 10*3/uVPcvpaw681-551OcihSelect Medical Specialty Hospital - AkronComment on above:Performed By: #### HEMOGC #### [facility] (DEFAULT) [address] [place] [address]STM (Bld) [#/Vol]4.52 10*6/uLNormal3.91-5.04[facility] Hospital - AkronComment on above:Performed By: #### HEMOGC #### [facility] (DEFAULT) [address] [place] [address]GSO Oxtrzcbbupyr32.2 %Xkyvol83.8-14.9[facility] - AkronComment on above:Performed By: #### HEMOGC #### [facility] (DEFAULT) [address] [place] [address]84ZRW (Bld) [#/Vol]8.10 10*3/uLNormal3.99-11.19[facility] - AkronComment on above:Performed By: #### HEMOGC #### [facility] (DEFAULT) [address] [place] [address] 72[address]XMWDUZSYPUHSS RATE, AUTOMATEDon 41-47-4069CRW (Bld) [Velocity] 26 mm/hNINFOSU Keenan Private HospitalInterpretation and review of laboratory resultsNormalOSU Keenan Private HospitalOSU [facility] Private HospitalESR Fjqnxlanjb85 mm/hrNormal<30[facility] - AkronComment on above: Performed By: #### ESR #### [facility] (DEFAULT) [address] [place] [address]KI HIP LEFT 2-3 VIEWSon 15-18-5117LH HIP LEFT 2-3 VIEWSEXAM: XR HIP LEFT [...] neck/greater trochanter, possibly related to prior trauma. [facility] HospitalXR [facility] - left 2 Viewson 04-28-2025 [...] anatomically aligned with moderate degenerative changes. RADIOLOGYWu Cole MD - 04/28/2025 EXAM: XR HIP [...] neck/greater trochanter, possibly related to prior trauma. [facility] HospitalRadiology Study observation (narrative)OSFayette County Memorial HospitalXR Hip - left 2 ViewsOrdered By: Wu Cole on 72-84-2366JDWFayette County Memorial Hospital Work Phone: XR KNEE LEFT 3+ VIEWS W/ BILATERAL STANDING 1 VIEWon 05-09-7037RT KNEE LEFT 3+ VIEWS W/ BILATERAL STANDING [...] Posterior heterotopic ossification versus intra-articular loose bodies. NProMedica Bay Park HospitalXR Knee - bilateral Views W standingon 97-67-1061UIGCIOKUNX: Intact total left knee arthroplasty hardware and [...] Posterior heterotopic ossification versus intra-articular loose bodies. [facility] HospitalOSU [facility] Private HospitalRadiology Study observation (narrative)[facility] Private HospitalUrine Cultureon 79-58-2767Vqqkuykw identified Cx Nom (U)<9,000 colonies/ml mixed bacterial skin contaminants 2 Days PERFORMED BY: [address] [place] [address] PATHOLOGIST ENAMEL SPRAYER ADILSON JUAREZ M.D.[facility] Physician GroupComment on above: Performed By: #### CUU #### [facility] [address] [place] [id number] USANo Panel Informationon 25-40-6948Mvie Tone Audiometry Audio indicated a mild to severe sensorineural hearing loss, bilaterally. NOMS Lisseth SaldañaUS Thyroid glandon 52-05-0333[place] [address] Ultrasound Report Signed Patient: RENUKA PADRON MR#: [id number] : 1955 Acct:[id number] Age/Sex: 69 / F ADM Date: 01/24/25 Loc: US Attending Dr: Leah Barrera M.D. Ordering Physician: Leah Barrera M.D. Date of Service: 01/24/25 Procedure(s): US thyroid Accession Number(s): [id number] cc: PETER SOSA D.O.; Leah Barrera M.D. [place] [id number] Patient Name: RENUKA PADRON MRN: [id number] date: 1955 Sex: F Assigned Patient Location: US Current Patient Location: US Accession/Order Number: [id number] Exam Date: 01/24/2025 12:07 Report Date: 01/24/2025 [...] Tate Jr., D.O.01/24/2025 12:12 PM Dictation Location: [place] [address] Electronically authenticated by: [id number] Y Date: 01/24/2025 12:12 Dictated By: Carlos Tate M.D. Signed By: 01/24/25 1215 DD/ 1212 TD/TT: Brand Analyst:TBHRadiology, Radiologist, - 01/24/2025 [place] [address] Ultrasound Report Signed Patient: RENUKA PADRON MR#: [id number] : 1955 Acct:[id number] Age/Sex: 69 / F ADM Date: 01/24/25 Loc: US Attending Dr: Leah Barrera M.D. Ordering Physician: Leah Barrera M.D. Date of Service: 01/24/25 Procedure(s): US thyroid Accession Number(s): [id number] cc: PETER SOSA D.O.; Leah Barrera M.D. [address] [place] [id number] Patient Name: RENUKA PADRON MRN: [id number] date: 1955 Sex: F Assigned Patient Location: US Current Patient Location: US Accession/Order Number: [id number] Exam Date: 01/24/2025 12:07 Report Date: 01/24/2025 [...] Tate Jr., D.O.01/24/2025 12:12 PM Dictation Location: [place] [address] Electronically authenticated by: [id number] Y Date: 01/24/2025 12:12 Dictated By: Carlos Tate M.D. Signed By: 01/24/25 1215 DD/ 1212 TD/TT: Brand Analyst: DEB SaldañaRadiology Study observation (narrative)DEB Lewis Thyroid glandOrdered By: Radiologist Radiology on 98-34-7541NEJBCedar County Memorial Hospital Work Phone: ekg Rhythm Stripon 96-11-3060PWNHLSCL Health Community Hospital - NorthglennBasic Metab w/rfx MGon 11-44-5343Hqmaz gap [Moles/Vol]9 mmol/LNormal9-16Bon [facility] on above:Performed By: #### PARK JAIMES #### [facility] [address] [place] [address] Broadcast Engineer: Anusha Lea, MDCalcium [Mass/Vol]8.7 mg/dLNormal8.6-10.4Bon [facility] on above:Performed By: #### PARK JAIMES #### [facility] [address] [place] [address] Broadcast Engineer: WILLIAM Marthloride [Moles/Vol]109 mmol/OOxhb11-771Ihe [facility] on above:Performed By: #### BMPX, CDP #### [address] [place], [place] 54[address] Broadcast Engineer: Anusha Lea MDCO2 [Moles/Vol]23 mmol/XYiyqzt66-17Qcj [facility] on above:Performed By: #### BMPX, CDP #### [address] [place], [place] [address]83 Broadcast Engineer: WILLIAM Martreatinine [Mass/Vol]1.0 mg/dLHigh0.50-0.90Bon [facility] on above:Performed By: #### BMPX, CDP #### [address] [place], [place] 1268483 Broadcast Engineer: Anusha Lea MDGlucose [Mass/Vol]166 mg/uDZhac74-70Ubo [facility] on above:Performed By: #### BMPX, CDP #### [address] [place], [place] 130[address]83 Broadcast Engineer: SANDRA Martotassium [Moles/Vol]4.1 mmol/LNormal3.7-5.3Bon SecFostoria City Hospital on above:Performed By: #### BMPX, CDP #### [address] [place], [place] [address] Broadcast Engineer: Anusha Lea MDSodium [Moles/Vol]141 mmol/WUzebys893-402Ndr [facility] on above:Performed By: #### BMPX, CDP #### [address] [place] [address] Broadcast Engineer: Anusha Lea MDUrea nitrogen [Mass/Vol]19 mg/dLNormal8-23Bon [facility] Medical CenterComselect specialty hospital-[facility] on above:Performed By: #### BMPX, CDP #### [facility] [address] [place], [place] 77[address]83 Broadcast Engineer: Anusha Lea MDBUN/CRE Caxua63Uydino7-46Uyvsr [facility] Comment on above:Performed By: #### BMPX, CDP #### [facility] [address] [place], [place] 67[address]683 Broadcast Engineer: Anusha Lea MDGFR/1.73 sq M.predicted among non-blacks MDRD (S/P/Bld) [Vol rate/Area]60 mL/min/{1.73_m2}Low>60[facility] on above:Result Comment: These results are [...] tubular secretion.Performed By: #### BMPX, CDP #### [address] [place] [address] Broadcast Engineer: Anusha Lea MDBaharrison memorial hospital Metabolic Panel w/ Reflex to MGon 01-05-2025 Est, Glom Filt Sevx24Dgx- PINFBon [facility] on above: These results are not intended [...] tubular secretion. Interpretation and review of laboratory resultsAbnormCumberland Hospital Urea nitrogen/Creatinine [Mass ratio]19 mg/mg9 - 20Bon SecCincinnati Shriners HospitalBon [facility] Medical CenterCBC with Auto Differentialon 71-31-3671Vwtxovxcb (Bld) [#/Vol]0 10*3/uLBon [facility] Medical CenterBasophils/100 WBC (Bld)0 %0 - 2 %[facility] HospitalEosinophils (Bld) [#/Vol]0.04 10*3/uLBon SecCincinnati Shriners HospitalEosinophils/100 WBC (Bld)1 %1 - 4 %[facility]aks HospitalErythrocyte distribution width (RBC) [Ratio]14 %11.8 - 14.4 %[facility] Hematocrit (Bld) [Volume fraction]35.2 %Low36.3 - 47.1 %[facility] Hemoglobin (Bld) [Mass/Vol]11.2 g/dLLow11.9 - 15.1 g/dLBon [facility] Immature granulocytes (Bld) [#/Vol]0 10*3/uLBon [facility] Medical CenterImmature granulocytes/100 WBC (Bld)0 %0[facility] HospitalInterpretation and review of laboratory resultsAbnormalInova Fair Oaks HospitalLymphocytes/100 WBC (Bld)10 %Low24 - 43 %[facility] HospitalLymphocytes/100 WBC (Bld)0.44 %LowRappahannock General HospitalH (RBC) [Entitic mass]28.4 pg25.2 - 33.5 pgBon Martins Ferry HospitalHC (RBC) [Mass/Vol]31.8 g/dL28.4 - 34.8 g/dLBon Martins Ferry HospitalV (RBC) [Entitic vol]89.3 fL82.6 - 102.9 fLInova Fair Oaks Hospital Monocytes/100 WBC (Bld)1 %Low3 - 12 %[facility] HospitalMonocytes/100 WBC (Bld)0.04 %LowInova Fair Oaks HospitalMorphology Jeff (Bld) [Interp]NormalBon [facility] Medical CenterNeutrophils/100 WBC (Bld)88 %High36 - 65 %[facility] HospitalNucleated RBC/100 WBC (Bld) [Ratio]0 %0.0 per 100 WBCInova Fair Oaks HospitalPlatelet mean volume (Bld) [Entitic vol]10.3 fL8.1 - 13.5 fLInova Fair Oaks HospitalPlatelets (Bld) [#/Vol]171 10*3/uLBon [facility] Medical CenterRBC (Bld) [#/Vol]3.94 10*6/uLLow3.95 - 5.11 m/uLInova Fair Oaks HospitalSegmented neutrophils/100 WBC (Bld)3.88 %[facility] HospitalWBC other (Bld) [#/Vol] 4.4Bon [facility] HospitalCBC with Diffon 01-05-2025 Abs. Basophil0.00 k/uLNormal0.0-0.2[facility] Lakeview HospitalComment on above: Performed By: #### THEODORE, CDP #### [facility] [address] [place] [address] Dr. [place], [facility]83 Broadcast Engineer: Marylou Mart.Imm.Granulocyte0.00 k/uLNormal0.00-0.30MerSelect Medical Specialty Hospital - Columbus South HospitalComment on above:Performed By: #### BMPX, CDP #### [address] [place], [place] [address]83 Broadcast Engineer: Marylou Mart.Neutrophil (Seg)3.88 k/uLNormal1.50-8.10MerSelect Medical Specialty Hospital - Columbus South HospitalComment on above:Performed By: #### BMPX, CDP #### [address] [place], [place] 730[address]83 Broadcast Engineer: Anusha Lea MDBasophils/100 WBC (Bld)0 %Normal0-2[facility]view HospitalComment on above:Performed By: #### BMPX, CDP #### [address] [place] [address] Broadcast Engineer: Anusha Lea MDEosinophils (Bld) [#/Vol]0.04 10*3/uLNormal 0.00-0.44[facility] HospitalComment on above:Performed By: #### BMPX, CDP #### [address] [place] [address] Broadcast Engineer: Anusha Lea MDEosinophils/100 WBC (Bld)1 %Normal1-4[facility] HospitalComment on above:Performed By: #### BMPX, CDP #### [address] [place], [place] [address] Broadcast Engineer: Anusha Lea MDImmature granulocytes/100 WBC (Bld)0 %Ovwlbw6Wdnnw [facility]iffin HospitalComment on above:Performed By: #### BMPX, CDP #### [address] [place], [facility]83 Broadcast Engineer: Anusha Lea MDLymphocytes (Bld) [#/Vol]0.44 10*3/uLLow1.10-3.70 [facility] HospitalComment on above:Performed By: #### BMPX, CDP #### [address] [place] [address] Broadcast Engineer: Lynne Martmphocytes/100 WBC (Bld)10 %Tmd23-23ZtlueSelect Medical Specialty Hospital - CantonComment on above:Performed By: #### BMPX, CDP #### [address] [place] [address] Broadcast Engineer: ANNIE Martonocytes (Bld) [#/Vol]0.04 10*3/uLLow0.10-1.20 [facility] Hospital - CantonComselect specialty hospital-[facility]aw on above:Performed By: #### BMPX, CDP #### [address] [place], [place] 47[address]83 Broadcast Engineer: ANNIE Martonocytes/100 WBC (Bld)1 %Low3-12[facility] Hospital - CantonComment on above:Performed By: #### BMPX, CDP #### [facility] [address] [place] [address] Dr. [place], [place] 25[address]83 Broadcast Engineer: ANNIE Martorphology Jeff (Bld) [Interp]NormalNormalDoctors Hospital HospitalComment on above:Performed By: #### BMPX, CDP #### [address] [place], [facility]83 Broadcast Engineer: Anusha Lea MDNeutrophil (Seg)88 %Tcxe38-46YgwwnSelect Medical Specialty Hospital - Canton Comment on above:Performed By: #### BMPX, CDP #### [address] [place], [place] 508[address]83 Broadcast Engineer: Anusha Lea MDErythrocyte distribution width (RBC) [Ratio]14.0 % Rryhrm16.8-14.4[facility] HospitalComment on above:Performed By: #### BMPX, CDP #### [address] [place], [place] 8[address]83 Broadcast Engineer: Anusha Lea MDHematocrit (Bld) [Volume fraction]35.2 %Low 36.3-47.1MAultman Alliance Community Hospital HospitalComment on above:Performed By: #### BMPX, CDP #### [address] [place], [place] 1768183 Broadcast Engineer: Anusha Lea MDHemoglobin (Bld) [Mass/Vol]11.2 g/dLLow11.9-15.1 [facility] HospitalComment on above:Performed By: #### BMPX, CDP #### [address] [place], [place] 7[address]83 Broadcast Engineer: ANNIE MartCH (RBC) [Entitic mass]28.4 kjGuvjkx54.2-33.5 [facility] HospitalComment on above:Performed By: #### BMPX, CDP #### [address] [place], [place] 6997883 Broadcast Engineer: CHANTE MartC (RBC) [Mass/Vol]31.8 g/zXLdembj36.4-34.8[facility] HospitalComment on above:Performed By: #### BMPX, CDP #### [address] [place], [place] [address]83 Broadcast Engineer: ANNIE MartCV (RBC) [Entitic vol]89.3 rXDxlpnv52.6-102.9 [facility] HospitalComment on above:Performed By: #### BMPX, CDP #### [address] [place], [place] 127[address]83 Broadcast Engineer: AJ Mart Automated0.0 per 100 WBCNormal0.0[facility] HospitalComment on above:Performed By: #### BMPX, CDP #### [address] [place], [place] 710[address]83 Broadcast Engineer: Brad Mart mean volume (Bld) [Entitic vol]10.3 fL Normal8.1-13.5[facility] Hospital - CantonComment on above:Performed By: #### BMPX, CDP #### [address] [place] [address] Broadcast Engineer: Avis Mart (Bld) [#/Vol]171 10*3/rUPktsbt017-264 [facility] HospitalComment on above:Performed By: #### BMPX, CDP #### [address] [place], [place] 325[address]83 Broadcast Engineer: CONTRERAS MartBC (Bld) [#/Vol]3.94 10*6/uLLow3.95-5.11[facility] HospitalComment on above:Performed By: #### BMPX, CDP #### [facility] [address] [place], [place] [address] Broadcast Engineer: RAMBO Mart (d) [#/Vol]4.4 10*3/uLNormal3.5-11.3[facility] Children'S HospitalComment on above:Performed By: #### BMPX, CDP #### [facility] [address] [place] [address] Broadcast Engineer: Anusha Lea [facility] – NORMANardiac echo study ProcedureOrdered By: Nelia Carlos on 68-69-2098Ujvhgz Sinus Valsalva2.8 cmUpCounsel Phone: Aortic Sinus Valsalva Index1.41 cm/m2Bon [employer] Phone: AV Cusp Mmode1.7 cmUpCounsel Phone: AV Mean Gfcsybpg5vxDzIsl [employer] Phone: AV Mean Velocity1 m/sBon [employer] Phone: AV Peak Upeqjzqp4jyCqKotUpCounsel Phone: AV Peak Velocity1.5 m/sBon [employer] Phone: AV Velocity Ratio0.87Bon [employer] Phone: AV VTI33.4 cmBon [employer] Phone: Body surface area Derived from formula2.08 m2Bon [employer] Phone: E/E' Nnvzrth34.84Bon [employer] Phone: [phone] BP62 %55 - 100 %UpCoun[employer] Phone: EF Zzghqyptj85 %Up[employer] Phone: Fractional Shortening 2D31 %28 - 44 %UpCoun[employer] Phone: Interpretation and review of laboratory results AbnormalBon knowNormal Work Phone: IVSd1.1 cmAbnormal0.6 - 0.9 cmTucson [facility] Hospital knowNormal Work Phone: LA Area 2C16.9 cm2Bon knowNormal Work Phone: LA Area 4C14.9 cm2[facility] HospitalEdoome Work Phone: LA Major Axis4.9 [facility] CenterE[facility] Work Phone: LA Minor Axis5 [facility] knowNormal Work Phone: LA Volume BP41 mL22 - 52 mLTucson Heart Hospital knowNormal Work Phone: LA Volume Index BP21 ml/m216 - 34 ml/m2[facility] knowNormal Work Phone: [phone] Volume Index MOD A2C24 ml/m216 - 34 ml/m2[facility] knowNormal Work Phone: [phone] Volume Index MOD A4C18 ml/m216 - 34 ml/m2[facility] knowNormal Work Phone: LA Volume MOD A2C47 mL22 - 52 mLTucson Heart Hospital knowNormal Work Phone: LA Volume MOD A4C35 mL22 - 52 [facility] knowNormal Work Phone: LV E' Lateral Velocity7.29 cm/sBon [facility] AvondaleEdoome Work Phone: LV EDV A2C88 mLTucson Heart Hospital knowNormal Work Phone: LV EDV A4C73 mLTucson Heart Hospital knowNormal Work Phone: [phone] EDV Index A2C44 mL/m2[facility] knowNormal Work Phone: LV EDV Index A4C37 mL/m2[facility] knowNormal Work Phone: [phone] Ejection Fraction A2C63 %[facility] knowNormal Work Phone: [phone] Ejection Fraction A4C55 %[facility] knowNormal Work Phone: [phone] ESV A2C33 mLBon knowNormal Work Phone: [phone] ESV A4C33 mLBon knowNormal Work Phone: [phone] ESV Index A2C17 mL/m2Bon knowNormal Work Phone: LV ESV Index A4C17 mL/m2Bon knowNormal Work Phone: [phone] Mass 2D175 qNcnbusxf44 - 162 gBon knowNormal Work Phone: LV Mass 2D Index87.9 g/m243 - 95 g/m2Bon knowNormal Work Phone: LV RWT Ratio0.49Bon [employer] Phone: [phone] cm3.9 - 5.3 cmBon knowNormal Work Phone: LVIDd Index2.26 cm/m2Bon knowNormal Work Phone: [phone] cmBon knowNormal Work Phone: LVIDs Index1.56 cm/m2Bon knowNormal Work Phone: [phone] Mean Eznfoswr4rtRcHyi knowNormal Work Phone: LVOT Peak Ppwkikpl7kiAaPpr knowNormal Work Phone: LVOT Peak Velocity1.3 m/sBon knowNormal Work Phone: LVOT VTI29.4 cmBon knowNormal Work Phone: [phone]:AV VTI Index0.88Bon knowNormal Work Phone: [phone] cmAbnormal0.6 - 0.9 cmTucson Heart Hospital knowNormal Work Phone: MV A Velocity1 m/sBon knowNormal Work Phone: MV E Velocity0.79 m/sBon knowNormal Work Phone: MV E Wave Deceleration Vlaq306 msBon knowNormal Work Phone: [phone] E/A0.79Bon knowNormal Work Phone: PV Max Velocity0.9 m/sBon knowNormal Work Phone: PV Peak Srbwrltt7keAaHkl knowNormal Work Phone: [phone] cm1.7 cmBon knowNormal Work Phone: Bon knowNormal Work Phone: Cardiac echo study Procedureon 62-16-6658Gkpq Ventricle: Normal left ventricular systolic function with [...] Image quality: adequate. No contrast was given.[facility] CV CPACSRadiology Study observation (narrative)[facility] knowNormalEKG 12 LeadOrdered By: Bonnie Dawkins on 74-41-8749Qmtajj Eobw43LMZKas knowNormal Work Phone: P Npzl80dvoxgbbVbb knowNormal Work Phone: P-R Zpnsodeo[address] [facility] knowNormal Work Phone: Q-T Xhfvtyeh[address] [facility] knowNormal Work Phone: QRS Vrpeiyqw[address] [facility] knowNormal Work Phone: QTc Calculation (Bazett)[address] [facility] knowNormal Work Phone: R Groves-63degrSelect Specialty Hospital - [facility]burg knowNormal Work Phone: T Xucd23ugsqcqlFhq knowNormal Work Phone: Ventricular Umgv22JAGChg knowNormal Work Phone: Bon knowNormal Work Phone: [phone] 12 Leadon 42-84-7482Uiazj bradycardia Left axis deviation Non-specific intra-ventricular conduction block Cannot rule out Anterior infarct , age undetermined Abnormal ECG No previous ECGs available Confirmed by Bonnie Dawkins MD ([id number]) on 01/05/2025 10:57:39 [facility]MSHRIN[facility] Bonnie Dawkins MD - 01/05/2025 Sinus bradycardia Left axis deviation Non-specific intra-ventricular conduction block Cannot rule out Anterior infarct , age undetermined Abnormal ECG No previous ECGs available Confirmed by Bonnie Dawkins MD ([id number]) on 01/05/2025 10:57:39 AM [facility] HospitalEKG Rhythm Stripon 66-80-4662IGVCLBanner Gateway Medical CenterFLUORO FOR SURGICAL PROCEDURESon 31-88-7853IUKCTZ FOR SURGICAL PROCEDURESRadiology exam is complete. No Radiologist dictation. Please follow up with ordering provider. Final resultNormalSelect Medical Specialty Hospital - CantonGlucose, Whole Bloodon 35-93-8565Frmzvbx [Mass/Vol]136 mg/eCOayl04 - 100 mg/dLBon Secours Mercy HealthInterpretation and review of laboratory resultsAbnormalWellmont Health SystemGlucose [Mass/Vol]136 mg/xZZaff28-709EmvfwSelect Medical Specialty Hospital - CantonGuidance-- during surgeryon 82-46-9905Uxkxpwukb exam is complete. No Radiologist dictation. Please follow up with ordering provider. MHPN RIS CONSOLIDATEDMicroscopic Urinalysison 14-34-0973Mvwvfppacg cells LM.HPF (Urine sed) [#/Area]0 TO 2Bon [facility] Medical CenterRBC LM.HPF (Urine sed) [#/Area][facility]U Medical CenterWBC LM.HPF (Urine sed) [#/Area][facility] HospitalUA w/Reflex Cultureon 01-05-2025 Bilirubin, SemiQt,UrNegativeNormalNEGSelect Medical Specialty Hospital - CantonComment on above: Performed By: #### UAX UMSARAHO #### [facility] [address] [place] [address] [place] [address] Broadcast Engineer: Delroy Mart, UrineNegativeMercy Health Perrysburg Hospital Comment on above:Performed By: #### UAX UMICAO #### [address] [place] [address] Broadcast Engineer: WILLIAM Martlarity ()ClearNormalCLEARSelect Medical Specialty Hospital - Canton Comment on above:Performed By: #### UAX, UMICAO #### [facility] [address] [place] [address] [place] [address] Broadcast Engineer: WILLIAM Martolor (U)YellowNoalYThe [facility] Comment on above:Performed By: #### UAX, UMICAO #### [facility] [address] [place] [address] [place] [address] Broadcast Engineer: Nydia Mart Ql (U)NegativeNormalPremier Health Miami Valley HospitalComment on above:Performed By: #### UAX, UMICAO #### [facility] [address] [place] [address] Dr. [place], [place] [id number] Broadcast Engineer: Anusha Lea MDKetones Ql (U)NegativeNormalNEGMerThe Hospital of Central ConnecticutComment on above:Performed By: #### UAX, UMICAO #### [facility] [address] [place] [address] Dr. [place] [address] Broadcast Engineer: Anusha Lea MDLeukocyte esterase Test strip Ql (U)NegativeNormal NEGMercy Yale New Haven Children'S HospitalComment on above:Performed By: #### UAX, UMICAO #### [address] [place], [place] [address] Broadcast Engineer: Anusha Lea MDNitrite,UrNegativeNormalNEGSelect Medical Specialty Hospital [facility] [place] Comment on above:Performed By: #### UAX, UMICAO #### [facility] [address] [place] [address] Dr[address] [place], [place] 7[address]83 Broadcast Engineer: SANDRA Mart,Ur7.9Dapaxi3.0-9.0[facility] - CantonComment on above:Performed By: #### MARVINX, UMICAO #### [facility] [address] [place] [address] [place] [address] Broadcast Engineer: Kristina Mart Ql (U)NegativeNormalNEGSelect Medical Specialty Hospital - CantonComment on above:Performed By: #### UAX, UMICAO #### [facility] [address] [place] [address] Dr[place], [place] [address] Broadcast Engineer: ELSIE Martpec. [place],Ur<1.129Sgu8.010-1.020[facility] - CantonComment on above:Performed By: #### UAX, UMICAO #### [facility] [address] [place] [address] Dr[place], [place] [phone] Broadcast Engineer: Amy Martbilinogen,UrNormalNormal0.0-1.0[facility] - CantonComment on above:Performed By: #### UAXSHITALO #### [facility] [address] [place] [address] Broadcast Engineer: Anusha Lea MDUrinalysis with Reflex to Cultureon 01-05-2025 Bilirubin Ql (U)NegativeNEGATIVEBon [facility] HealthClarity (U)ClearClearBon [facility] HealthColor (U)YellowYellowBon [facility] CenterGlucose Test strip (U) [Mass/Vol]NegativeNEGATIVE mg/dLBon [facility] CenterHemoglobin Auto test strip Ql (U)NegativeNEGATIVEBon [facility] HealthInterpretation and review of laboratory resultsAbnormalBon [facility] Medical CenterKetones (U) [Mass/Vol]NegativeNEGATIVE mg/dLBon [facility] CenterLeukocyte esterase Test strip Ql (U)NegativeNEGATIVEBon [facility] Medical CenterNitrite Ql (U)Negative NEGATIVEBon [facility] HealthpH (U)7.5 [pH]5.0 - 9.0Bon [facility] Protein (U) [Mass/Vol]NegativeNEGATIVE mg/dLBon [facility] HealthSpecific gravity (U) [Rel density]Low1.010 - 1.020Bon [facility] Medical CenterUrobilinogen Qn (U)Normal0.0 - 1.0 EU/dLBon [facility] Urinalysis,Microon 67-64-8437Zhgipgbkxa cells LM Ql (Urine sed)0 TO 1Dkafbv4-31 [facility] - CantonComment on above:Performed By: #### UAXSHITALO #### [facility] [address] [place] [address] Broadcast Engineer: Selam Mart RBC'sNoneNormal0-2MKettering Health Washington Township Comment on above:Performed By: #### SHITAL DEMARCOO #### [facility] [address] [place] [address] Broadcast Engineer: Selam Mart WBC'[address] Comment on above:Performed By: #### UAX, [facility] #### [facility] [address] [place], [place] 7427283 Broadcast Engineer: CAMILLE MartR CHEST (2 VW)on 36-42-7217BV CHEST (2 VW) EXAMINATION: TWO XRAY VIEWS [...] Signed by: Lucila Westfall MD 01/05/25 Final resultNoMartins Ferry Hospital Chest 2 Viewson 15-78-4280Sk acute process. [facility] CONSOLIDATEDEXAMINATION: TWO XRAY VIEWS OF THE CHEST 01/05/2025 1:51 pm COMPARISON: None. HISTORY: ORDERING SYSTEM PROVIDED HISTORY: hypotension TECHNOLOGIST PROVIDED HISTORY: hypotension FINDINGS: The lungs are without acute focal process. There is no effusion or pneumothorax. The cardiomediastinal silhouette is without acute process. The osseous structures are without acute process. [facility] Lucila Villegas MD - 01/05/2025 EXAMINATION: TWO XRAY VIEWS OF THE CHEST 01/05/2025 1:51 pm COMPARISON: None. HISTORY: ORDERING SYSTEM PROVIDED HISTORY: hypotension TECHNOLOGIST PROVIDED HISTORY: hypotension FINDINGS: The lungs are without acute focal process. There is no effusion or pneumothorax. The cardiomediastinal silhouette is without acute process. The osseous structures are without acute process. IMPRESSION: No acute process. [facility] HospitalRadiology Study observation (narrative)[facility] Chest 2 ViewsOrdered By: Lucila Westfall on 65-76-1110Ndo [facility] Work Phone: Cult,Aerobe/Anaerobeon 11-38-4539Qxga,Aerobe/Anaerobe Specimen Description .JOINT FLUID .KNEE LEFT 6.8mL Special Requests .JOINT FLUID .KNEE LEFT Direct Exam FEW NEUTROPHILS NO ORGANISMS SEEN Culture NO GROWTH 5 DAYS Report Status FINAL 11/19/2024NoSelect Medical Specialty Hospital - Southeast OhioComment on above: Performed By: #### AANC #### [facility] [address] [place] [address] Broadcast Engineer: Rocco Salas MD [address] [place], [place] 387[address]83 Broadcast Engineer: Romana Martals, Fluidson 89-25-4357Vlaswxnk,Fluid NegativeNormalPremier Health Miami Valley HospitalComment on above:Result Comment: NO CRYSTALS SEENPerformed By: #### FLCRYS #### [facility] [address] [place] [address] Broadcast Engineer: Rocco Salas MD [address] [place] [phone] Broadcast Engineer: Anusha Lea MD #### FLDCT #### [address] [place] [phone] Broadcast Engineer: Anusha Lea [facility] NORTH ALABAMAathologist Review:ELECTRONICALLY SIGNED. DORIS ALDRICH M.D.[facility] System East CampusComment on above:Performed By: #### FLCRYS #### [place] [address] [place] [address] Broadcast Engineer: Rocco Salas MD [address] [place] [address] Broadcast Engineer: Anusha Lea MD #### FLDCT #### [address] [place] [address]383 Broadcast Engineer: WILLIAM Martell Count with Differential, Body Fluidon 79-40-0996Udhyylaemg (Body fld)SLIGHTLY CLOUDYBon [facility] HealthBlasts/100 WBC (Body fld)0 %[facility] HealthCells Cxmkqsn53U[facility] Color (Body fld)YellowBon [facility] CenterEosinophils/100 WBC (Body fld)0 % Bon [facility] Medical CenterFluid Nom (Body fld).JOINT FLUIDBon [facility] Interpretation and review of laboratory resultsAbnormalBon [facility] Lymphocytes/100 WBC (Body fld)72 %Tqwf4Zok [facility] CenterMonocytes/100 WBC (Body fld)0 %Bon [facility] CenterNeutrophils/100 WBC (Body fld)28 %Xust3Oqo [facility] CenterRBC (Body fld) [#/Vol]8000 10*3/uLcells/uLBon [facility] CenterUnidentified cells/100 WBC (Body fld)0 %Bon [facility] Medical CenterWBC (Body fld) [#/Vol]156 10*3/uLcells/uLBon [facility] Fluid Cell Count and Diffon 38-87-5336PhlppbkclYhzrcg8Hrrgz[address] Comment on above:Performed By: #### FLCRYS #### [address] [address] Broadcast Engineer: Rocco Salas MD [facility] [address] [place] [address] Dr. [place] [address]69383 Broadcast Engineer: Anusha Lea MD #### FLDCT #### [address] [place] [address] Broadcast Engineer: Anusha Lea MDULKyyoscjmurhIkzsop1Nqtws02 Thomas StreetComment on above:Performed By: #### FLCRYS #### [address] [address] Broadcast Engineer: Rocco Salas MD [facility] [address] [place] [address] [place] [address] Broadcast Engineer: Anusha Lea MD #### FLDCT #### [facility] [address] [place] [address] [place] [address] Broadcast Engineer: Anusha Lea MDLymphocytes/100 WBC (Bld)72 %Koiu3TjertSelect Medical Specialty Hospital - CantonComment on above:Performed By: #### FLCRYS #### [facility] [address] [place] [address] Broadcast Engineer: Rocco Salsa MD [address] [place] [address] Broadcast Engineer: Anusha Lea MD #### FLDCT #### [address] [place] [address] Broadcast Engineer: ANNIE Martono/KckfieecddMcwltm3Tuwsz Tiffin HospitalComment on above:Performed By: #### FLCRYS #### [facility] [address] [place] [address] Broadcast Engineer: Rocco Salas MD [address] [place] [address] Broadcast Engineer: Anusha Lea MD #### FLDCT #### [address] [place] [address] Broadcast Engineer: Anusha Lea MDNeutrophils/100 WBC (Bld)28 %Xmyf9ExfdcSelect Medical Specialty Hospital - CantonComselect specialty hospital-[place] on above:Performed By: #### FLCRYS #### [address] [address] Broadcast Engineer: Rocco Salas MD [address] [place] [address] Broadcast Engineer: Anusha Lea MD #### FLDCT #### [address] [place] [address] Broadcast Engineer: Anusha Lea MDOther JkfrqQnazrm7Cysvz15 Powers StreetComment on above:Performed By: #### FLCRYS #### [facility] [address] [place] [address] Broadcast Engineer: Rocco Salas MD [facility] [address] [place] [address] [place] [address] Broadcast Engineer: Anusha Lea MD #### FLDCT #### [address] [place] [address] Broadcast Engineer: Charles Marttal Cells Gbknkbu90LxcwfvUhnjt[address] [place] [address] Comment on above:Performed By: #### FLCRYS #### [facility] [address] [place] [address] Broadcast Engineer: Rocco Salas MD [facility] [address] [place] [address] [place] [address] Broadcast Engineer: Anusha Lea MD #### FLDCT #### [address] [place] [address] Broadcast Engineer: Herrera Mart (U)[facility] Medical CenterComment on above:Performed By: #### FLCRYS #### [facility] [address] [place] [address] Broadcast Engineer: Rocco Salas MD [facility] [address] [place] [address] [place] [address] Broadcast Engineer: Anusha Lea MD #### FLDCT #### [facility] [address] [place] [address] [place] [address] Broadcast Engineer: Betsy Mart (U)[facility], AvonComment on above:Performed By: #### FLCRYS #### [facility] [address] [place] [address] Broadcast Engineer: Rocco Salas MD [facility] [address] [place] [address] [place] [address] Broadcast Engineer: Anusha Lea MD #### FLDCT #### [facility] [address] [place] [address] [place] [address] Broadcast Engineer: CLIFFORD Mart (Bld) [#/Vol]0.008 10*6/[facility] Osteopathic HospitalComment on above:Performed By: #### FLCRYS #### [facility] [address] [place] [address] Broadcast Engineer: Rocco Salas MD [address] [place] [address] Broadcast Engineer: Anusha Lea MD #### FLDCT #### [address] [place] [address] Broadcast Engineer: Anusha Lea MDPHELPS [facility]ORIAL [facility] (Bld) [#/Vol]0.156 10*3/[facility] Osteopathic HospitalComment on above:Performed By: #### FLCRYS #### [facility] [address] [place] [address] Broadcast Engineer: Rocco Salas MD [address] [place] [address] Broadcast Engineer: Anusha Lea MD #### FLDCT #### [address] [place] [address] Broadcast Engineer: Anusha Lea MDType of Specimen.[facility] Regional HospitalComment on above:Performed By: #### FLCRYS #### [facility] [address] [place] [address] Broadcast Engineer: Rocco Salas MD [facility] [address] [place] [address] [place] [address] Broadcast Engineer: Anusha Lea MD #### FLDCT #### [address] [place] [address] Broadcast Engineer: Anusha Lea MD07 Addendum Reporton Addendum Report [facility] [address] [place] [address]- Surgical Pathology Report Collected Date/Time: 06/01/2024 12:32 [...] examined esophagus. Empiric dilation with Delcid 54 Bahamian was done, no mucosal disruption was noted [...] is entirely submitted in one cassette. (DC) DC:[facility] Microscopic Description Microscopic examination performed unless gross only specified. The use of one or more reagents in the above tests is regulated as an analyte specific reagent (ASR). The test or tests are ordered following initial H&E microscopic examination. The performance characteristics were determined by the Laboratory of [facility]. They have not been cleared or approved by the US Food and Drug Administration. The FDA has determined that such clearance or approval is not necessary. These tests are used for clinical purposes. They should not be regarded as investigational or for research. Appropriate positive and negative controls are performed and are acceptable. [facility] CampusComment on above:Performed By: #### [id number] #### [facility] [address] [place] [address]Gtoldvq Letter FTon 75-76-1303Swzxvbg Letter FTPatient Letter FT June 06, 2024 RENUKA PADRON [address] [place] [phone] : 1955 Below is a summary of [...] if you wish to make an appointment. [facility] [phone] Stokes [facility] [phone] Reminders From: Lisa Cunningham I To: [facility] - Reminders/Recalls; Sent: 06/06/2024 10:26:14 EDT Show up: 03/19/2034 10:26:00 EDT Subject: Colonoscopy recall Reminder/Recall [address] Bejarano 06/01/2034NoAv[facility] Health Systemurgical Pathology Reporton 06-03-2024 Surgical Pathology ReportFish - [address] [place] [address]- Surgical Pathology Report Collected Date/Time: 06/01/2024 12:32 [...] examined esophagus. Empiric dilation with Delcid 54 Bahamian was done, no mucosal disruption was noted [...] is entirely submitted in one cassette. (DC) DC:[facility] Microscopic Description Microscopic examination performed unless gross only specified. The use of one or more reagents in the above tests is regulated as an analyte specific reagent (ASR). The test or tests are ordered following initial H&E microscopic examination. The performance characteristics were determined by the Laboratory of [facility]. They have not been cleared or approved by the US Food and Drug Administration. The FDA has determined that such clearance or approval is not necessary. These tests are used for clinical purposes. They should not be regarded as investigational or for research. Appropriate positive and negative controls are performed and are acceptable. [facility] CampusComment on above:Performed By: #### [id number] #### [facility] [address] [place], [place] [address]Ainc OR Intraoperative Recordon 85-64-7594Qnij OR Intraoperative RecordMain OR Intraoperative Record IntraOp Document Type FT Summary Primary Physician: Glen Bejarano MD Finalized Date/Time: 06/02/24 08:36:22 Pt. Name: RENUKA PADRON/Sex: 1955 Female Med Rec #: [id number] Physician: Glen Bejarano MD Financial #: [id number] Pt. Type: O Room/Bed: / Admit/Disch: 06/01/24 [...] RN, Margarette Blackwell Role Performed Anesthesiologist of Aluminum Sheet Cutter - Primary Scrub - Primary Record Time In 06/01/24 12:25:00 06/01/24 12:25:00 06/01/24 12:25:00 Time Out 06/01/24 13:09:00 06/01/24 13:09:00 06/01/24 13:09:00 Procedure EGD AND COLONOSCOPY(.) EGD AND COLONOSCOPY(.) EGD AND COLONOSCOPY(.) Comments Last Modified By: Kami RN, Vitaliy Mcclure RN, Vitaliy Elise RN 06/01/24 13:16:18 06/01/24 13:16:18 06/01/24 13:16:18 Entry 4 Entry 5 Case Attendee Phil HSIEH, Jacqueline Bejaraon MD, Glen Ta Role Performed Staff - [...] additional precautions for proce (more content not included)...[facility] CampusDischarge Instructionson 66-03-1714Tvnqherhg InstructionsDischarge Instructions RENUKA PADRON :1955 Visit Date:06/01/2024 [...] sulfate fluticasone nasal (fluticasone 0.05 mg/inh Nasal [place]) gabapentin (gabapentin 300 mg Cap) hydrOXYzine magnesium [...] Follow Up with Darci BRYANT, KLAUS Parsons, [facility] When: Comments: Call for any problems. Office to call for follow up appointment. Where: [address] [place] [address], [address] [address] [phone] Medications What How Much When Instructions Next [...] fluticasone nasal (fluticasone 0.05 mg/ inh Nasal [place]) 2 Sprays Nasal Inhalation Every day Unchanged [...] this sheet in the (more content not included)...[facility] CampusComment on above:Result Comment: Electronically Signed By: Oliver REYNA, Sharon Goldman\.br\Date and Time Signed: 06/01/24 13:15 EDTInpatient Patient Summaryon 63-70-3050Qnzdmmalq Patient SummaryInpatient Patient Summary [place] [phone] [facility] Clinical Discharge Instructions PERSON INFORMATION Name: RENUKA [...] day. fluticasone nasal (fluticasone 0.05 mg/inh Nasal [place]) 2 Sprays Nasal Inhalation every day. hydrOXYzine [...] MOUTH ONCE DAILY., Responsible Provider: PETER SOSA Comment:[facility] CampusMain OR PACU I Recordon 07-06-2966Ufjp OR PACU I RecordMain OR PACU I Record PACU Phase I Document Type FT Summary Primary Physician: Glen Bejarano MD Finalized Date/Time: 06/01/24 13:51:48 Pt. Name: NEREIDA RENUKAPAYAL Dunn D.O.B./Sex: 1955 Female Med Rec #: [id number] Physician: Glen Bejarano MD Financial #: [id number] Pt. Type: O Room/Bed: / Admit/Disch: 06/01/24 [...] Signatures Signed By: Sharon Boyd RN 06/01/24 13:51NoKeenan Private HospitalMain OR Preoperative Recordon 31-42-6208Otkz OR Preoperative RecordMain OR Preoperative Record Holding Area Document Type FT Summary Primary Physician: Glen Bejarano MD Finalized Date/Time: 06/01/24 11:20:31 Pt. Name: RENUKA PADRON/Sex: 1955 Female Med Rec #: [id number] Physician: Glen Bejarano MD Financial #: [id number] Pt. Type: O Room/Bed: / Admit/Disch: 06/01/24 [...] Signatures Signed By: Vitaliy Mcclure RN 06/01/24 11:20[facility] CampusOutpatient Surgery Discharge Instructionon 67-71-5714Gmskgeuubg Surgery Discharge InstructionOutpatient Surgery Discharge Instruction [place] [address] Patient Discharge Instructions PERSON INFORMATION Name: RENUKA [...] Information: You may receive a survey from [employer] asking you to rate your care experience. Your feedback is important and will help us understand what we do well and how we can improve the quality of care we provide to you, your loved ones and our community. It?s an honor to serve you. Thank you for choosing [facility] HERE ARE THE MEDICATION CHANGES THAT OCCURRED [...] day. fluticasone nasal (fluticasone 0.05 mg/inh Nasal [place]) 2 Sprays Nasal Inhalation every day. hydrOXYzine [...] PETER SOSA PATIENT EDUCATION INFORMATION Instructions: Medication Leaflets:[facility] Main CampusBacteria Spec Anaerobe Cult on 03-22-2948Uyhjvbnq identified Anaer cx Nom (Unsp spec)Culture, Anaerobic Status = F No anaerobes grown after 4 days.NormalNyunt [facility] on above: Performed By: #### 635-3 #### [facility] ([facility] [address] [place], [place] [address]Prhxybow Spec BFld Culton 75-75-1305Rkqfhbgm identified Sterile body fluid culture Nom (Unsp [...] been appended to a previously preliminary verified report.NormalNyunt [facility] on above: Performed By: #### 636-1 #### [facility] ([facility] [address] [place], [place] [address]Iyoopdiz identified Anaer cx Nom (Unsp spec)Ordered By: Kaur Pierre on 09-60-2819Dgowlvmw Spec Anaerobe CultCulture, Anaerobic Status = F [...] [facility]Alliance of OhioCell count panel (Body fld)on 45-98-2929Coegg Basophils1.0 %[facility] on above:Order Comment: The reference range and other method performance specifications have not been established for this fluid specimen. The test result should be integrated into the clinical context for interpretation.Performed By: #### 37645-7 #### [facility] [address] [place] [address]Krodd Yeaplvcdbpj71.0 %NormalMount Pikeville New AlbanyComment on above:Order Comment: The reference range and other method performance specifications have not been established for this fluid specimen. The test result should be integrated into the clinical context for interpretation. Performed By: #### 82244-6 #### [facility] [address] [place] [address]Agxne Lymphocytes3.0 %NormalMount Pikeville New Albcritical access hospitalComment on above:Order Comment: The reference range and other method performance specifications have not been established for this fluid specimen. The test result should be integrated into the clinical context for interpretation. Performed By: #### 64616-9 #### [facility] [address] [place] [address]Ljcrj Monocytes/Macrophages9.0 %NormalMount Corewell Health Ludington HospitalComselect specialty hospital-[place] on above:Order Comment: The reference range and other method performance specifications have not been established for this fluid specimen. The test result should be integrated into the clinical context for int erpretation.Performed By: #### 03897-0 #### [facility] [address] [place] [address]Fzrlm Osyzbnmglru52.0 %NormalMount Corewell Health Ludington HospitalComselect specialty hospital-[facility] on above:Order Comment: The reference range and other method performance specifications have not been established for this fluid specimen. The test result should be integrated into the clinical context for interpretation. Performed By: #### 32557-0 #### [facility] [address] [place] [address]Mpem count panel (Body fld)Ordered By: Kaur Pierre on 01-05-9372Vdeo Cnt Pnl FldKneeOrthoAlliance of OhioCell Cnt Pnl FldCloudy [facility]iance of OhioCell Cnt Pnl FldRedOrthoAlliance of OhioCell Cnt Pnl Fld 363867 /rb0EawpuGtupurao of OhioComment on above:The reference range and other method performance specifications have not been established for this fluid specimen. The test result should be integrated into the clinical context for interpretation.Cell Cnt Pnl Cmn757 /ac4WabakGtufmgzy of OhioComment on above:The reference range and other method performance specifications have not been established for this fluid specimen. The test result should be integrated into the clinical context for interpretation.Differential panel (Body fld)Ordered By: Kaur Pierre on 61-78-7905Fbgz Pnl Fld76.0 %OrthoAlliance of OhioDiff Pnl Fld 3.0 %OrthoAlliance of OhioDiff Pnl Fld9.0 %OrthoAlliance of OhioDiff Pnl Fld11.0 %OrthoAlliance of OhioDiff Pnl Fld1.0 %OrthoAlliance of OhioFungus Skin Culton 50-27-4109Hqxfom identified Cx Nom (Skin)Culture, Fungus Status = F No growth at 4 weeksNormalMount [facility] on above:Performed By: #### 575-1 #### [facility] [address] [place], [place] [address]Lnsiex identified Cx Nom (Skin)Ordered By: Kaur Pierre on 26-61-4031Wdsrgm Skin CultCulture, Fungus Status = F No growth at 4 weeksOrthoAlliance of OhioMycobacterium Spec Ql Culton 05-25-2024 Mycobacterium sp Org specific cx Ql (Unsp spec)Culture AFB Status = F No growth at 8 weeks AFB Stain Status = F No acid fast bacilli seenNormalMount [facility] on above:Performed By: #### 65349-5 #### [facility] [address] [place], [place] [address]Gmniorujpc Visit Summaryon 49-89-2630Btxpzvftgc Visit Summary RENUKA PADRON :1955 Visit Date:03/28/2024 [...] sulfate fluticasone nasal (fluticasone 0.05 mg/inh Nasal [place]) gabapentin (gabapentin 300 mg Cap) hydrOXYzine midodrine [...] fluticasone nasal (fluticasone 0.05 mg/ inh Nasal [place]) 2 Sprays Nasal Inhalation Every day Contact [...] or concerns Unchanged topiram (more content not included)...[facility] CampusAmbulatory Visit Summary RENUKA PADRON :1955 Visit Date:03/28/2024 [...] sulfate fluticasone nasal (fluticasone 0.05 mg/inh Nasal [place]) gabapentin (gabapentin 300 mg Cap) hydrOXYzine midodrine [...] fluticasone nasal (fluticasone 0.05 mg/ inh Nasal [place]) 2 Sprays Nasal Inhalation Every day Contact [...] or concerns Unchanged topiram (more content not included)...[facility] CampusConsent for Procedure/Surgeryon 58-69-0551Wbqwlky for Procedure/Surgery [id number]#[id number] Mansfield HospitalGastroenterology Office/Clinic Noteon 67-80-5238Bybakszlzonatkpm Office/Clinic NoteChief Complaint Dysphagia HPI Staff Patient [...] E&M of New Patient High 60-74 Min 57874 E&M of New Patient Moderate 45-59 Min 40867 EGD Endoscopy (Hospital Procedure) EGD Endoscopy (Hospital Procedure) 2. Dysphagia (R13.10: Dysphagia, unspecified) to solids, has to use water, occasionally (worst sandwich, meat..) no previous dilation EGD with dilation if fails--> manometry Ordered: Colonoscopy (Hospital Procedure) Colonoscopy (Hospital Procedure) E&M of New Patient High 60-74 Min 58881 E&M of New Patient Moderate 45-59 Min 92512 EGD Endoscopy (Hospital Procedure) EGD Endoscopy (Hospital Procedure) 3. History of gastric bypass (Z98.84: Bariatric surgery status) 1984 Ordered: Colonoscopy (Hospital Procedure) E&M of New Patient High 60-74 Min 31200 E&M of New Patient Moderate 45-59 Min 52937 EGD Endoscopy (Hospital Procedure) 4. Obesity (E66.9: Obesity, unspecified) Ordered: Colonoscopy (Hospital Procedure) E&M of New Patient High 60-74 Min 20971 E&M of New Patient Moderate 45-59 Min 50870 EGD Endoscopy (Hospital Procedure) 5. CHF (congestive heart failure) (I50.9: Heart failure, unspecified) Ordered: Colonoscopy (Hospital Procedure) E&M of New Patient High 60-74 Min 28303 E&M of New Patient Moderate 45-59 Min 52371 EGD Endoscopy (Hospital Procedure) 6. COPD type [...] tab, Oral, Daily fluticasone 0.05 mg/inh Nasal [place], 2 spray(s), Nasal, Daily gabapentin 300 mg [...] Patient was adopted Fami (more content not included)...[facility] CampusComment on above:Result Comment: Electronically Signed By: Darci BRYANT, Glen Ta\.br\Date and Time Signed: 03/28/24 10:48 EDTCT Neck WO contraston 61-71-6638[address] [address] [address] Scan Report Signed Patient: RENUKA PADRON MR#: [id number] : 1955 Acct:[id number] Age/Sex: 68 / F ADM Date: 02/12/24 Loc: CT Attending Dr: Leah Barrera M.D. Ordering Physician: Leah Barrera M.D. Date of Service: 02/12/24 Procedure(s): CT soft tissue neck wo con Accession Number(s): [id number] cc: PETER SOSA D.O. [place] [id number] Patient Name: RENUKA PADRON MRN: [id number] date: 1955 Sex: F Assigned Patient Location: CT Current Patient Location: CT Accession/Order Number: [id number] Exam Date: 02/12/2024 08:58 Report Date: 02/12/2024 [...] Signed By: 02/12/24 1445 DD/ 41 TD/TT: Brand Analyst:TBHRadiology, Radiologist, MD - 02/12/2024 [place] [address] CT Scan Report Signed Patient: RENUKA PADRON MR#: [id number] : 1955 Acct:[id number] Age/Sex: 68 / F ADM Date: 02/12/24 Loc: CT Attending Dr: Leah Barrera M.D. Ordering Physician: Leah Barrera M.D. Date of Service: 02/12/24 Procedure(s): CT soft tissue neck wo con Accession Number(s): [id number] cc: PETER SOSA D.O. The [place] [id number] Patient Name: RENUKA PADRON MRN: [id number] date: 1955 Sex: F Assigned Patient Location: CT Current Patient Location: CT Accession/Order Number: [id number] Exam Date: 02/12/2024 08:58 Report Date: 02/12/2024 [...] Signed By: 02/12/24 144 DD/ 41 TD/TT: Brand Analyst: DEB HealthcareRadiology Study observation (narrative)[facility] HealthcareCT Neck WO contrastOrdered By: Radiologist Radiology on 94-12-7252SGAM [facility] Work Phone: US Thyroid glandon [phone] [address] Ultrasound Report Signed Patient: RENUKA PADRON MR#: [id number] : 1955 Acct:[id number] Age/Sex: 68 / F ADM Date: 01/27/24 Loc: US Attending Dr: Leah Barrera M.D. Ordering Physician: Leah Barrera M.D. Date of Service: 01/27/24 Procedure(s): US thyroid Accession Number(s): [id number] cc: PETER SOSA D.O.; Leah Barrera M.D. [place] [id number] Patient Name: RENUKA PADRON MRN: [id number] date: 1955 Sex: F Assigned Patient Location: US Current Patient Location: Accession/Order Number: [id number] Exam Date: 01/27/2024 11:00 Report Date: 01/27/2024 [...] IMPRESSION: Stable bilateral thyroid nodules TI-RADS: The [employer] TI-RADS committee's white paper recommendations for thyroid lesions classified as TR3 (mildly suspicious) are listed below: > 1.5 cm. Follow-up ultrasound in 1, 3, and 5 years. > 2.5 cm. FNA. J. Am Nick Radiol 2017;14:587-595. Electronically authenticated by: ANUSHA AGUERO Date: 01/27/2024 12:43 Dictated By: Anusha Aguero M.D. Signed By: 01/27/245 DD/ 42 TD/TT: Brand Analyst:KESHIAHRadiologcori, Radiologist, - 01/27/2024 The [place] [id number] Ultrasound Report Signed Patient: RENUKA PADRON MR#: [id number] : 1955 Acct:[id number] Age/Sex: 68 / F ADM Date: 01/27/24 Loc: US Attending Dr: Leah Barrera M.D. Ordering Physician: Leah Barrera M.D. Date of Service: 01/27/24 Procedure(s): US thyroid Accession Number(s): [id number] cc: PETER SOSA D.O.; Leah Barrera M.D. [place] [id number] Patient Name: RENUKA PADRON MRN: [id number] date: 1955 Sex: F Assigned Patient Location: US Current Patient Location: US Accession/Order Number: [id number] Exam Date: 01/27/2024 11:00 Report Date: 01/27/2024 [...] IMPRESSION: Stable bilateral thyroid nodules TI-RADS: The [employer] TI-RADS committee's white paper recommendations for thyroid lesions classified as TR3 (mildly suspicious) are listed below: > 1.5 cm. Follow-up ultrasound in 1, 3, and 5 years. > 2.5 cm. FNA. J. Am Nick Radiol 2017;14:587-595. Electronically authenticated by: ANUSHA AGUERO Date: 01/27/2024 12:43 Dictated By: Anusha Aguero M.D. Signed By: 01/27/24 1245 DD/ 1243 TD/TT: Brand Analyst: DBE HealthcareRadiology Study observation (narrative)SOURAVSid SaldañaUS Thyroid glandOrdered By: Radiologist Radiology on 15-54-8479PTWZ Healthcare Work Phone: ecg 12 leadon 03-25-2023 Wave Glrh24ocljcrvPmammkf HealthP-R Ufjuwkik607 [facility] ClinicPathologist interpretation (Bld) [Interp] Normal sinus rhythm Left bundle branch block Abnormal ECG Confirmed by Evelyn Jose MD ([id number]) on 03/25/2023 1:21:08 PM [facility] HospitalQ-T Gfqktowu181 [facility] ClinicQRS Ogbbylhq782 [facility] INf961 [facility] ClinicR Groves-19degreesWayne Memorial HospitalTroponin T.cardiac [Mass/Vol]83 ug/LdegreesTrinWalter P. Reuther Psychiatric Hospital HealthLaboratory - Coagulationon 06-69-9023UIU Coag (Bld)74 sBPMTUPMC Magee-Womens HospitalOhaoprNQXC-OwF-3 (COVID-19) RNA TORRES+probe Ql (Resp)on 06-41-9402Sarzpegtgoisll and review of laboratory resultsNormal [facility] HospitalQhsoruWTMJ-KqV-3 (COVID-19) RdRp gene TORRES+probe Ql (Resp)Not detectedNot DetectedTrinWalter P. Reuther Psychiatric Hospital HealthBacteria identified Anaer cx Nom (Unsp spec)Ordered By: Deep Sagastume on 76-09-0253Cffwilz HealthBacteria identified Anaer cx Nom (Unsp spec)on 08-14-0969Uzvdbit HealthCulture anaerobicOrdered By: Deep Sagastume on 55-32-0296Xqmidhhp identified Anaer cx Nom (Unsp spec)No anaerobes grown after 4 days.[facility]sor[facility] - Microbiology and Antimicrobial susceptibilityon 64-72-6793Lxziuzul identified Anaer cx Nom (Unsp spec)No anaerobes grown after 4 days.[facility] HealthBacteria identified Cx Nom (Tiss)on 71-71-2940Pfvvdbrcxbg observation Gram stain Nom (Unsp spec)No Polymorphonuclear leukocytesTrinmercy health defiance hospital HealthComment on above:This is an appended report. [...] Nom (Unsp spec)Ordered By: Aggie Aiken on 67-40-5616Izwcxvpb identified Cx Nom (Body fld)Rare Pasteurella multocidaAbnormalTrinity [...] preliminary verified report.Culture tissue with gram stainon 62-38-7341Nohilrji identified Cx Nom (Tiss)No growth at 3 [...] and Antimicrobial susceptibilityOrdered By: Aggie Aiken on 25-66-7211Hbqbesaxpyr observation Gram stain Nom (Unsp spec)No Epithelial cellsTrinity HealthComment on above:This is an appended report. These results have been appended to a previously preliminary verified report. Microscopic observation Gram stain Nom (Unsp spec)No organisms seenTrinity HealthComment on above:This is an appended report. These results have been appended to a previously preliminary verified report.No Panel InformationOrdered By: Aggie Aiken on 99-22-6178Iiussczeytkhxh and review of laboratory results AbnormalTrinity HealthTrinity HealthBasic metabolic 2000 panelon 69-16-2650Lxwow gap [Moles/Vol]8 mmol/L6 - 18Trinity HealthCalcium [Mass/Vol]9.1 [...] adjustment for race.Glucose [Mass/Vol]95 mg/dL70 - 99 mg/dLTrinmercy health defiance hospital Health Interpretation and review of laboratory resultsAbnormalTrinity HealthPotassium [Moles/Vol]4.6 mmol/L3.6 - 5.1 mmol/LTrinity HealthSodium [Moles/Vol]137 mmol/L 136 - 145 mmol/LTrinity HealthUrea nitrogen [Mass/Vol]22 mg/dLHigh8 - 20 mg/dL [facility] HealthUrea nitrogen/Creatinine [Mass ratio]23.9 mg/bmXhyu66.0 - 20.0 [facility] HealthTrinity HealthGlucose Auto test strip (Bld) [Mass/Vol]on 64-49-0764Ujwixbi [Mass/Vol]112 mg/eRWzmx23 - 99 mg/dLTrinmercy health defiance hospital Health Interpretation and review of laboratory resultsAbnormalTrinity HealthTrinity HealthGlucose [Mass/Vol]124 mg/qJGioo47 - 99 mg/dLTrinity HealthInterpretation and review of laboratory resultsAbnormalTrinity HealthTrinity HealthGlucose [Mass/Vol]85 mg/dL70 - 99 mg/dLTrinity HealthInterpretation and review of laboratory resultsNormalTrinity HealthTrinity HealthHemogram and platelets WO differential panel (Bld)on 44-55-8517Vmhggdjdl (Bld) [#/Vol]0.04 10*3/uLTrinity HealthBasophils/100 WBC (Bld)0.4 %0.0 - 2.0 %[facility] HealthEosinophils (Bld) [#/Vol]0.08 10*3/uLTrinity HealthEosinophils/100 WBC (Bld)0.7 %0.0 - 7.0 % [facility] HealthErythrocyte distribution width (RBC) [Ratio]13.6 %11.0 - 14.8 % [facility] HealthHematocrit (Bld) [Volume fraction]36.0 %34.3 - 47.9 %[facility] HealthHemoglobin (Bld) [Mass/Vol]11.6 g/dLLow12.0 - 16.0 g/dLTrinity Health Immature granulocytes (Bld) [#/Vol]0.07 10*3/uLTrTitusville Area HospitalImmature granulocytes/100 WBC (Bld)0.7 %0.0 - 1.2 %[facility] HospitalInterpretation and review of laboratory resultsAbnormalTrinmercy health defiance hospital HealthLymphocytes (Bld) [#/Vol]1.70 10*3/uLTrTitusville Area HospitalLymphocytes/100 WBC (Bld)15.8 %Low17.9 - 49.6 %[facility] Cancer CenterH (RBC) [Entitic mass]28.4 pgTrinLehigh Valley Hospital - HazeltonHC (RBC) [Mass/Vol]32.2 g/dL30.8 - 35.3 g/dLTrinLehigh Valley Hospital - HazeltonV (RBC) [Entitic vol]88.0 fLTUPMC Magee-Womens Hospital Monocytes (Bld) [#/Vol]1.02 10*3/uLHighTrinmercy health defiance hospital HealthMonocytes/100 WBC (Bld)9.5 %0.0 - 12.0 %RenateSCI-Waymart Forensic Treatment CenterNeutrophils (Bld) [#/Vol]7.84 10*3/uLHighTrinmercy health defiance hospital HealthNeutrophils/100 WBC (Bld)72.9 %38.1 - 75.5 %[facility] Memorial HospitalPlatelet mean volume (Bld) [Entitic vol]10.4 fLTrinmercy health defiance hospital HealthPlatelets (Bld) [#/Vol]300 10*3/uLTrinity HealthRBC (Bld) [#/Vol]4.09 10*6/uLTrexcela frick hospital HealthWBC (Bld) [#/Vol]10.8 10*3/uLHighTrinity [facility] Hospital - Camp HillBasic metabolic 2000 panelon 82-44-7128Dhlps gap [Moles/Vol]11 mmol/L6 - 18TrinSCI-Waymart Forensic Treatment CenterCalcium [Mass/Vol] 9.0 mg/dL8.9 - 10.3 mg/dLTrinmercy health defiance hospital HealthChloride [Moles/Vol]104 mmol/L98 - 107 mmol/LTrinity HealthCO2 [Moles/Vol]23 mmol/L22 - 32 mmol/LTrexcela frick hospital Health Creatinine [Mass/Vol]1.03 mg/dL0.60 - 1.30 mg/dLTrinmercy health defiance hospital HealthGFR/1.73 sq M.predicted among non-blacks MDRD (S/P/Bld) [Vol rate/Area]60 mL/min/{1.73_m2}- PINFTrinity HealthComment on above:Effective July 27, 2022, calculation based on the Chronic Kidney Disease Epidemiology Collaboration (CKD-EPI) equation refit without adjustment for race.Glucose [Mass/Vol]106 mg/eHTvnj04 - 99 mg/dL [facility] HealthInterpretation and review of laboratory resultsAbnormalTrinity HealthPotassium [Moles/Vol]4.9 mmol/L3.6 - 5.1 mmol/LTrinity HealthSodium [Moles/Vol]138 mmol/L136 - 145 mmol/LTrinity HealthUrea nitrogen [Mass/Vol]31 mg/dLHigh8 - 20 mg/dLTrinity HealthUrea nitrogen/Creatinine [Mass ratio]30.1 mg/yaQypx79.0 - 20.0Trinity HealthTrinity HealthGlucose Auto test strip (Bld) [Mass/Vol]on 89-47-7363Paiqxkm [Mass/Vol]109 mg/iPWsdp65 - 99 mg/dLTrinity HealthInterpretation and review of laboratory resultsAbnormalSouthside Health Renate HealthGlucose [Mass/Vol]89 mg/dL70 - 99 mg/dLTrinity Health Interpretation and review of laboratory resultsNormalTrinity HealthTrinity HealthGlucose [Mass/Vol]106 mg/vYOyei92 - 99 mg/dLTrinity HealthInterpretation and review of laboratory resultsAbnormalTrinity HealthTrinity HealthGlucose [Mass/Vol]116 mg/fMWmrb99 - 99 mg/dLTrinity HealthInterpretation and review of laboratory resultsAbnormalTrinity HealthTrinity HealthHemogram and platelets WO differential panel (Bld)on 09-89-8634Izuvfqghy (Bld) [#/Vol]0.02 10*3/uLTrinity HealthBasophils/100 WBC (Bld)0.2 %0.0 - 2.0 %[facility] HealthEosinophils (Bld) [#/Vol]0.00 10*3/uLTrinity HealthEosinophils/100 WBC (Bld)0.0 %0.0 - 7.0 % [facility] HealthErythrocyte distribution width (RBC) [Ratio]13.9 %11.0 - 14.8 % [facility] HealthHematocrit (Bld) [Volume fraction]38.9 %34.3 - 47.9 %RenateSCI-Waymart Forensic Treatment CenterHemoglobin (Bld) [Mass/Vol]12.2 g/dL12.0 - 16.0 g/dLTrinSCI-Waymart Forensic Treatment CenterImmature granulocytes (Bld) [#/Vol]0.08 10*3/uLTrTitusville Area HospitalImmature granulocytes/100 WBC (Bld)0.7 %0.0 - 1.2 %[facility] HealthInterpretation and review of laboratory resultsAbnormalTrinmercy health defiance hospital HealthLymphocytes (Bld) [#/Vol]1.07 10*3/uLTrexcela frick hospital Health Lymphocytes/100 WBC (Bld)9.3 %Low17.9 - 49.6 %[facility] Memorial HospitalMCH (RBC) [Entitic mass]28.2 pgTrinSCI-Waymart Forensic Treatment CenterMCHC (RBC) [Mass/Vol]31.4 g/dL30.8 - 35.3 g/dLWayne Memorial HospitalMCV (RBC) [Entitic vol]89.8 fLTrinmercy health defiance hospital HealthMonocytes (Bld) [#/Vol]0.61 10*3/uLTrexcela frick hospital HealthMonocytes/100 WBC (Bld)5.3 %0.0 - 12.0 %[facility] Neutrophils (Bld) [#/Vol]9.71 10*3/uLHighTrinmercy health defiance hospital HealthNeutrophils/100 WBC (Bld) 84.5 %High38.1 - 75.5 %RenateSCI-Waymart Forensic Treatment CenterPlatelet mean volume (Bld) [Entitic vol] 11.2 fLTrinmercy health defiance hospital HealthPlatelets (Bld) [#/Vol]270 10*3/uLTrexcela frick hospital HealthRBC (Bld) [#/Vol]4.33 10*6/uLTrexcela frick hospital HealthWBC (Bld) [#/Vol]11.5 10*3/uLCity HospitalTrinRoxbury Treatment CenterPathology studyOrdered By: Anusha Dietrich on 36-01-4611Hwwhhlkp Jeff (Reference lab test) j9dupHCjJLMqp2kmXCGlgNPlOpDtWbUiWuTyGbfmlHRkGJcyzjHzELzwv0QzU3ExDlTlAHephwLmHTKr JkjpudgwAZHuWOA4iqXv EHAlTEzvOBRhRFawEx0okNYszOtvLtHaWHEcp5hudlNQYDalEGXKSZg3x8dbWYAmWkL7rLVsGKciQ7ps auNgjYGaV9Ffy1PsPGg9 tZ25BPMjjA0jjECrDClrkmSoXjD8QZxpYNAvZsO5BWQhqBJnHYBvY3qlWQMnGDiewvCnhdC0MCPbdRZs KDH4DOIyENYuB3KsFL4c THWruLAzCCe2h5wvoNenRPJgVAO0w8pjSMderjQxCY9fag4leYc3k4qlzrAuIRCbEIRwaXDHQBQmI4Ze cOfbBd2njUw6gFptHiik NMZ0Rtg9VQ7wpq07njp8bZkuVZNtdgilClY5PTbqBRYysgetLCp8AXtsNAEnnQP4VFAquUKbS3MuIYIt HQ6delk7KAY3HKinFPRk JkG1JXXyyMIgVXVayOhlESlbi144DYG8IqYcSZ0nS9Bxq9L7yY6knVCsDEBjvDNaXbCoVADxpk8jmPBi YBqcj0YnBWP8wdW1wWHs iDAaIVEqNV48Xjpkv4DqMiztZGA3DWJwnaXbu8Xrs5wmExOecqLoI8plU3LnJWNaXKRgLLCmLhYgmyRf a4Nas0LorOWxtIk3h3ew CGArNQOfzNaja9tmBBB5SAPjE8M2mQBpm4pmTKuwCBQcaOY0ecT5XADhuKBsF1PctV2kDAFtFW9clpf0 s9otGNB9PMfoXFOpTvB8 xiX8MQPfsBOlZWFurQhzVCeek606WYL2MsFhSRLdj0XfH5RyaCyzR33vpIedQ01gQAMqlEpvtL9fgLki oL3nQsRoVgQlTYxdiJbj qVOxqpnjMVuzqhI5SXoxwmyfCVBpECtdP3ukJfLuISPgaPocVEozg6SbKIRqDTCuFjokyqO9BKhyUD32 TCiruHZcm0ehp7PtA5xn qQdiqAF5JR8yWKNmCRFfOJmms5CihY3khSShPZQxspM9mFPepK01WKQrxaF7HGUkj18pw2YvaTmutnEs HCNuOLnqvsHfQKAni4Oz LXGpWOYlIZ22kzNmX1GtkYUzWPLnafJvBPzweN6xi0v5OSdcWf6kCNumd2VigQTojLUpwKO8ZQQoa3Ek IwHvasCglNFhkzOgWU4q MWWlwDFymeDeTQH1DPNzIIXSWdOkXBXpy5KiFU9nAFAyeCxgCJPcyE9tp9BkAXKuc23rRZJfGHDZFQPq aGFzIGRldGVybWluZWQg yIhikIPbpWCpWKZoZJKbZJ4qBSMfvhZkjMFap4BdwEGgxaHcu0IjfeRxEOHnYJX0OgBAvIVdOWG8CEN6 cgEqreTbeOKsVTGik9Lz Y4eepcdtZCxpsWVseZ2kIMIvMV8dPDRll6ZaGTQdj7HwPzNjtwIrROSeYLMcHQIwvR05VLZ8jRealLfo dqZkGL2dLDXxuiAtKVAt JAGjrB7sIEyvysJhOMDpmeY9b1R3JQdsDQPiuqVoKfhuEWQ5ifDfRQQwc8SbNYzdE1yaI59ksLzecNr1 sCM5FTI5lA5jSAWuEULd JXYdQKUWxVrpvXRclIXEMKGshbP6x0L5FPynzGIttfQhDP64NRBaRZ9xaBKkuIMyc5VpRXn9AV2yOIng XNVqaxNqg9jvEAShp7xn FQFjwe9bdlgkdTKwnbFgV3Neunh3xR2vzICrJTVgtk31MEU7PjAbKX1nqDyeMAKjGE8jUIYmD5ntaD3z vpx9MsTjm3utkIKfZAHr vYDvIdZaGYAvAJDxl5llXBGyiWVfRsJsGwYwLvRyGjbjdTVcLGYxOeGmu2dba344uHPis4diKPWlKuP8 vVFbNVUlB48uZFYAU245 VERsBCqbp4gyq4FqIPUeaRZmf7V1ANPTHDsnQPUSUDc9eKpuN55cb0V9FdjlY0imVDOcWPBnL4VsLW5b FAKkBrl8RYB1OHO5ELGz GUW8JIxiUARzNPHvTtq7QGT5HOpmvnKqCREqLMvvPVUyPHWnXBWlyLEtHTKnH7ofOLYdQJxpRVYtXRot vNKrWQR1oGmqf9I5jOHv uVUgcBgbSkEeIxFxAoKJu6QoMIx9mOdoW4UeUXTyOgJ3fBZhEGElFLbsQAUvOIAojtY5mU23VFuvxaH4 yBTfh9Tmz01bd978tY3j cOAbMBA4IKMmNFYqbKHpZRExYBX4LUSkwVXcV7gxGPMpKT1qbfgpEHvzDUdeUFNpnVV3HKGqdETpU6At PPUvBYuiSBCbnix1JoJx Gu6lmBMvwLcyTWyeg7hmh6gwuVHzPee4FXRaBaFwIevxOCvxr0Wls2qqPDVaip8dOVU4uZQmaZsri3C3 bGUxXGRudGJsbnNiZGJc HjR8ZPpwOY6sgo20BZZhAWW7uw0szLWpeGghciPidSCcEQnuE6YrMKYht267CEJgD6IxTDWsy2P0xgIb QkMnJGKfaCG0hnR2KPPu IVc6kXYyrmZ1yvAktPXrG3xydH6vPVWiQX6fmiien0gdYJqgFThaZPUbfSY0koJ4RDEzjGBjL2TlsN4p XRGpWVplNSMccgs6JwGb Ay1ldUPzbEuaKUgoQzmdGFknEAKhczPngaEatZddUBXbJXEkXRzqMNOjIMtgSJNhKACoWbGbzAtvaSbr fG5jPtJpImZrMDryXX0j WODmH0nlsLAcVTYcCXMnT2gqJeCaqP2xqLsdBEkuRkXqYaDjSGqaYEUoZAB5VGLymerfRCdwY79zeF8u NP82QBwhxqJmDNVnl8Es RXJgWZUiGZfgPOSmmuSaGQucoC6vg8g2KWfiSb1uKYMbnycgQUP2WxReOT64CtmpdTQfPWOWmjAsLABo bHVtYnVzLCBPaGlvIDQz BvM7KcRYqGCwo4Jiv0XjCwPuyAYmrG4izMijoeP7UTBlbMIaJf4iiZHpCgsdjHMgoxoaNOqvmvH7LEme gaibNNIrUHcvV8vpDyVkZNMrcEmuWVgmu7AaMEEpMDXdE5rbluG5MVchaNAyWDAfbz34kV==Gblbvwl Health Work Phone: Microscopic description Jeff (Endomyocardium) p3dxjNFjWKFaoHTKOHWjZGHzRP1miHongOi8kOehEWQnfwU5bPLlKVrfx0bjZJR3t1etowPQNtazCZNy GA8iQHcoIRIrGM1wPrHl GUMdZeYlYHDgkCJcxaOfImYwWVKdyLHhmBA2GHJrYD5awdgmFYqoUJwxRDRirhY3KNNmoGJcC8NyFVZf NH0qabarXMR0GWMRCfib Yv2fxVNikQVEMgajCgSzQiSeALMwUJMkOKWzfVahUQKyARw1kV1Ym7qkRcidS9ukmiTpwCUgOz2hxZIF CGpjRVMDCBp3nM2CNGNi C5DkDW9Us0toINBwvOLiZBM2XYfcf0yxVDqnRGY9NCMtJQRoEKOhJY6HDeNjZWWcLGHcUWabVrZ5SBj5 ZWSVMLBpROX4YtCmDqZ9 FKp2YBLiQV0qIIkczLSwVRasJpvkZMmdP197SMrjRJEdH5PzP5GjYFshGwGbWJryJNDiGDPxADwiBDZt A0XJODGuBzPcOsL3EEBi QOm5JHg3RO7BGfBvXPZeKeX7NkB6SSTfAGc4HHxkHC0XBBSnUNG6JvakJQZgRKJ9AIQfNZt8ZGLeBCce xoDqTYgaUiidPXauY19c wIIjBDDTOdyxrMLglkvyNPgnlwWsZMUuACxeBPBrTUttMfRyJKrnJURqAJhivVRkLG1OXZSjcqYvXXje iKlazT3aMbXwTzBiYBuq lRZqjfdrfEGriUxmheVbVSDgbEXXQYW6JB2yAVRWLwdzkTPzINRnoWyiXEgzuG5xKGApIaXoWQZuG0qw OAYuRY4YLOThYWVsDsUy NnTiKWn2PKKfjR6eEh1doZIpcS4ivLGoETccNKN4sIQkLTMvYNIdBBJpXI49K1PzyoXeDNxgDU0iAPAp UFf4cE1nVIsuaSRrTWKf oVCuLFHqLCJ9OMzyRSOfGQxuQOBfxQ3gpPlfkvPnHuAqswWjY4CuGVHhwOVzZWfihZgumaD9gsS9DT2e K1VhwTIbgNMzj00ncHWp MX9jfTRmhSmkw7StUJjxeOgsiWMdZTMeaXluYKWtWBLgxiyhlgAieUquizJbHbtbeXGfBtYtrWXsLmWr S51kXULXWHJ7aR7tbO7k QXLlvyLohRStAFU3BP0tjVFmkI63GLAzYQWyqq3gmcW8YYIvyEMix6AhCDT6nDTslGOiBSEmEJutsHfb ki4gs3N7fY40sbKhbHLi tWXom6QcWFSmAVCtCYgnBK15cCQcDYXlXIHDHQHaVAPmcgXadUg8FYDyMAU9sV7fifVbfrXqt0YdoUs6 mLVzJMboEOJwr4bkX0lh RRLte9TwdRAkKfRnDYwOXWiBTqhogGljQyYurZQvIpG7YWGraMAjPFO7MP1cqEybZLLjL8KpA8VsrrP3 BERrlxCURzmnDWCdEP3GTPQkJHEbNzKpXXe5Ejpjomb Health Work Phone: Pathology report final diagnosis Narrative h2mntIZhOQIvjRTmOBOaOncvioOaRBBvfTIeZ3HzvhnuPMyfXL0qOC9ioPwrhFJxiJFmDITeBrYqe2hj w843zOIct7wuNWGAjkcd hSm1mQylN89pv6P8NbztM4ugODRnNRgkMXNgDEliuUJtSFg3RTShpIEjpmKzUxZzLXBnwCUsbBU2XDMw VC2lhyxpZYudNXuyGLFz rhA7LHBduSBvQ5HpWTTcXY8shtypAFP7ZEaaLWFiRMZ3JuQxOBIdn2Jvgii8ThLlqCn0w5ofEGCgCFIq hRcos9tqYSX8FNKpePNs E0jqfR8sBTItHH4mdupxm1gjSPlmVQbcJZGykYU2owL7NVYlkRHqC0BgaD2wVOVcEJVyzwUkvQheqD1l K2UtUEVGTDF0XEzkXEDd MDNgw0VgfXfckNRoFHK1mi83lZLkVGlobTozmDShr0JgPVBfuUYmHWpjZtoyxM2rjTourm2AFY2cXMij SXH9ICFnyTwhyyY7ZQCe xiUxvCubLJPke6ViNJKaVTlrSxmeSHWwFj8knAOxuGOka9H2rFRtEIu3pXPtk0V8iUclWIzrTcmowT2e jZouqjKowjMnfzKhMB51MpstNSZ3Mosnprg Health Work Phone: [facility] Phone: XR Knee 1-2 Views Lefton [id number] post left total knee arthroplasty. -------- FINAL [...] By: Self Edit Transcribed Date: 03/20/2023 07:17 MintedXR Knee 1-2 Views LeftOrdered By: Ania Dumont on 03-20-2023 Minted Work Phone: basic metabolic 2000 panelon 48-97-4357Ezfkp gap [Moles/Vol]9 mmol/L6 - 18Tr[facility] HealthCalcium [Mass/Vol]10.2 [...] - 20 mg/dLTrinity HealthUrea nitrogen/Creatinine [Mass ratio]32.7 mg/vvNqwi29.0 - 20.0Trinity HealthTrinity HealthCell count panel (Body fld)Ordered By: Deidra Stallings on 21-17-4197Kxbfrka (Body fld)CloudyTrinity HealthColor (Body fld)OrangeTrinity HealthRBC Auto (Body fld) [#/Vol][id number] /[id number] HealthComment on above:The reference range and other method performance specifications have not been established for this fluid specimen. The test result should be integrated into the clinical context for interpretation.Specimen source Nom (Body fld)KneeTrinity HealthWBC (Body fld) [#/Vol][id number] /[id number] HealthComment on above:The reference range and other method performance specifications have not been established for this fluid specimen. The test result should be integrated into the clinical context for interpretation.Called to Galilea MCGOVERN 1422 03/19/23 GKBTrinmercy [facility] HealthTrinity Health Differential panel (Body fld)on 34-58-4578Gagwsrrcxjd/100 WBC Manual cnt (Body fld)[facility] HealthMonocytes+Macrophages/100 WBC (Body fld)4.0 %[facility] Neutrophils/100 WBC (Body fld)96.0 %[facility] HealthTrinity HealthGlucose Auto test strip (Bld) [Mass/Vol]on 20-49-8728Ydfbzqt [Mass/Vol]131 mg/sHAfvg43 - 99 mg/dLTrinity HealthInterpretation and review of laboratory resultsAbnormal [facility] HealthTrinity HealthGlucose [Mass/Vol]124 mg/uSAmzg80 - 99 mg/dLTrinity HealthInterpretation and review of laboratory resultsAbnormalTrinity Health Renate TjneynEdW5p HPLC (Bld) [Mass fraction]on 52-95-2629Cxpjuaq [Mass/Vol]117 mg/dLTrinity NuhqzzAvI5r (Bld) [Mass fraction]5.7 %HighNINF - 5.6 %[facility] HealthInterpretation and review of laboratory resultsAbnormalTrinity BglfedRkQ7f values of 5.7-6.4 percent indicate an increased risk for developing diabetes mellitus. HbA1c values greater than or equal to 6.5 percent are diagnostic of diabetes mellitus. For diagnosis of diabetes in individuals without unequivocal hyperglycemia, results should be confirmed by repeat testing. [facility] HealthHemogram and platelets WO differential panel (Bld)on 15-49-4693Ergamaqoi (Bld) [#/Vol]0.05 10*3/uLTrinity HealthBasophils/100 WBC (Bld)0.4 %0.0 - 2.0 %[facility] HealthEosinophils (Bld) [#/Vol]0.07 10*3/uLTrinity HealthEosinophils/100 WBC (Bld)0.6 %0.0 - 7.0 %[facility] HospitalErythrocyte distribution width (RBC) [Ratio]13.9 %11.0 - 14.8 %[facility] HospitalHematocrit (Bld) [Volume fraction]40.6 %34.3 - 47.9 %[facility] HospitalHemoglobin (Bld) [Mass/Vol]12.9 g/dL12.0 - 16.0 g/dLWayne Memorial HospitalImmature granulocytes (Bld) [#/Vol]0.07 10*3/uLTrinity HealthImmature granulocytes/100 WBC (Bld)0.6 %0.0 - 1.2 %[facility] HospitalInterpretation and review of laboratory resultsAbnormal [facility] HealthLymphocytes (Bld) [#/Vol]1.28 10*3/uLTrTitusville Area HospitalLymphocytes/100 WBC (Bld)10.3 %Low17.9 - 49.6 %[facility] CenterH (RBC) [Entitic mass]27.9 pg [facility] CenterHC (RBC) [Mass/Vol]31.8 g/dL30.8 - 35.3 g/dLFox Chase Cancer CenterV (RBC) [Entitic vol]87.7 fLTrinmercy health defiance hospital HealthMonocytes (Bld) [#/Vol]1.01 10*3/uLHigh [facility] HealthMonocytes/100 WBC (Bld)8.1 %0.0 - 12.0 %[facility] HealthNeutrophils (Bld) [#/Vol]9.93 10*3/uLHighTrinity HealthNeutrophils/100 WBC (Bld)80.0 %High 38.1 - 75.5 %[facility] HealthPlatelet mean volume (Bld) [Entitic vol]9.6 fLTrinity HealthPlatelets (Bld) [#/Vol]268 10*3/uLTrinity HealthRBC (Bld) [#/Vol]4.63 10*6/uLTrinity HealthWBC (Bld) [#/Vol]12.4 10*3/uLHighTrinity [facility] HospitalTrinity HealthXR Knee 1-2 Views Lefton 23-33-4897Wsuqpmadt Study observation (narrative) [facility] HospitalCBC AUTO DIFFon 27-97-6972FNZS #0.0 103/ulNormal0.0-0.1The Memorial HospitalComment on above:Performed By: #### CBC #### [facility] [address] [address] [address] Kyree NealBasophils/100 WBC (Bld)0.3 %Normal0.2-2.0[facility] Comment on above:Performed By: #### CBC #### [facility] [address] [address] [address] Kyree Jackson #0.0 103/ulNormal0.0-0.7The Memorial HospitalComment on above: Performed By: #### CBC #### [facility] [address] [address] [address] Kyree Cooperosinophils/100 WBC (Bld)0.1 %Critically low0.9-7.0The Memorial HospitalComment on above:Performed By: #### CBC #### [facility] [address] [address] [address] Kyree Cooperrythrocyte distribution width (RBC) [Ratio]14.0 %Zgswgj60.0-15.0 The Memorial HospitalComment on above:Performed By: #### CBC #### [facility] [address] [address] [address] Kyree NealHematocrit (Bld) [Volume fraction]38.5 %Kfnpmh56.0-48.0The Memorial HospitalComment on above:Performed By: #### CBC #### [facility] [address] [address] [address] Kyree NealHemoglobin (Bld) [Mass/Vol]12.4 g/tGMtiwgl18.0-16.0The Memorial HospitalComment on above:Performed By: #### CBC #### [facility] [address] [address] [address] Kyree King #0.06 10e3/ulCritically high0.00-0.03[facility] Comment on above:Performed By: #### CBC #### [facility] [address] [address] [address] Kyree King %0.4 %Normal0.0-0.5The Memorial HospitalComment on above: Performed By: #### CBC #### [facility] [address] [place] [address] Dr. Kyree Koch #0.9 103/ulCritically low1.2-3.8[facility] Comment on above:Performed By: #### CBC #### [facility] [address] [address] [address] Kyree Hollingsworthhocytes/100 WBC (Bld)6.6 %Critically low20.5-60.0The Memorial HospitalComment on above:Performed By: #### CBC #### [facility] [address] [address] [address] Kyree LindquistUAL DIFF REQNONormalThe Memorial HospitalComment on above: Performed By: #### CBC #### [facility] [address] [address] [address] Kyree Marino (RBC) [Entitic mass]28.1 bzBcwzay91.7-34.0The Memorial HospitalComment on above:Performed By: #### CBC #### [facility] [address] [place] [address] Dr. Kyree Marino (RBC) [Mass/Vol]32.2 g/hBYrtnmu79.9-35.2The Memorial HospitalComment on above:Performed By: #### CBC #### [facility] [address] [address] [address] Kyree MarinoV (RBC) [Entitic vol]87.1 oSHjxkri91.0-99.0The Memorial HospitalComment on above:Performed By: #### CBC #### [facility] [address] [address] [address] Kyree Powers #1.2 103/ulCritically high0.3-0.8ThC[facility] Clinic [facility] Comment on above:Performed By: #### CBC #### [facility] [address] [address] [address] Kyree Pintoocytes/100 WBC (Bld)8.6 %Normal1.7-12.0[facility] Comment on above:Performed By: #### CBC #### [facility] [address] [place] [address] Dr. Kyree Sparks #11.5 103/ulCritically high1.4-6.5ThCleveland Clinic [facility]inte [facility] Comment on above:Performed By: #### CBC #### [facility] [address] [address] [address] Kyree Lebronutrophils/100 WBC (Bld)84.0 %Critically high43.0-75.0The Memorial HospitalComment on above:Performed By: #### CBC #### [facility] [address] [address] [address] Kyree Friendlet mean volume (Bld) [Entitic vol]10.0 fLNormal9.5-13.5The Memorial HospitalComment on above:Performed By: #### CBC #### [facility] [address] [address] [address] Kyree NealPLT250 103/viFmjuel153-175Fip Memorial HospitalComment on above: Performed By: #### CBC #### [facility] [address] [address] [address] Kyree NealRBC4.42 106/ulNormal4.20-5.40The [facility] HospitalComment on above:Performed By: #### CBC #### [facility] [address] [address] [address] Kyree NealWBC13.7 103/ulCritically high4.0-11.0The Memorial HospitalComment on above:Performed By: #### CBC #### [facility] [address] [address] [address] Kyree Reddy 94-57-8938UJQ55.8 mg/dLCritically high<=1.0The Memorial HospitalComment on above:Performed By: #### HH #### [facility] [address] [address] [address] Kyree CaiLTURE BLOODon 84-42-4102Xguenfgtvxh examination of blood, cultureCulture Observations: NO GROWTH AT 36-48 HOURS. FINAL TO FOLLOW.NormalThe Memorial HospitalComment on above:Performed By: #### BLDCX2 ####[facility] [address] [address]Dr. Kyree NealMicroscopic examination of blood, cultureCulture Observations: NO GROWTH AT 36-48 HOURS. FINAL TO FOLLOW.NormalThe Memorial HospitalComment on above:Performed By: #### BLDCX1 ####[facility] [address] [address]Dr. Kyree NealLACTATE/LACTIC ACIDon 64-94-9111Cdjzjiq [Moles/Vol]1.2 mmol/LNormal0.4-2.0The Memorial HospitalComment on above: Performed By: #### HH #### [facility] [address] [place] [address] Dr. Kyree NealPROF CHEM 8 (BAS METB)on 14-42-0469Cwxqd gap [Moles/Vol]11.6 mmol/LNormalThe Memorial HospitalComment on above:Performed By: #### HH #### [facility] [address] [place] [address] Dr. Kyree NealCalcium [Mass/Vol]9.0 mg/dLNormal8.5-10.1[facility] Comment on above:Performed By: #### HH #### [facility] [address] [address] [address] Kyree NealChloride [Moles/Vol]102 mmol/TSccnzu66-202Qcq [facility] Comment on above:Performed By: #### HH #### [facility] [address] [address] [address] Kyree NealCO2 [Moles/Vol]28.0 mmol/EMeddpg81.0-32.0[facility] Comment on above:Performed By: #### HH #### [facility] [address] [address] [address] Kyree NealCreatinine [Mass/Vol]1.34 mg/dLCritically high0.55-1.02The Memorial HospitalComment on above:Performed By: #### HH #### [facility] [address] [address] [address] Adorno ChangEGFR-AF WBDVKRRS26 mL/min/1.51c4Pyjrcoxdyn low>=60The Memorial HospitalComment on above:Performed By: #### HH #### [facility] [address] [address] [address] Kyree CooperGFR-NON AF IRPWJOES16 mL/min/1.88b8Ntdhxqojdr low>=60The Memorial HospitalComment on above:Performed By: #### HH #### [facility] [address] [address] [address] Kyree NealGlucose [Mass/Vol]120 mg/dLCritically cjih64-032Xpx Memorial HospitalComment on above:Performed By: #### HH #### [facility] [address] [address] [address] Kyree NealPotassium [Moles/Vol]3.6 mmol/LNormal3.5-5.1[facility] Comment on above:Performed By: #### HH #### [facility] [address] [address] [address] Kyree NealSodium [Moles/Vol]138 mmol/RTreteu223-990Spq [facility] Comment on above:Performed By: #### HH #### [facility] [address] [address] [address] Kyree NealUrea nitrogen [Mass/Vol]36.0 mg/dLCritically high7.0-18.0The Memorial HospitalComment on above:Performed By: #### HH #### [facility] [address] [address] [address] Kyree NealUrea nitrogen/Creatinine [Mass ratio]26.9 mg/mgNoMercy Health Willard HospitalComment on above:Performed By: #### HH #### [facility] [address] [address] [address] Kyree NealSED RATE WESTERGRENon 88-73-6448CQE RATE80 mm/hrCritically high <=30The Memorial HospitalComment on above:Performed By: #### HH #### [facility] [address] [address] [address] Kyree Bonds NGUYỄN DOP LEG LTon 87-45-1586ZV NGUYỄN DOP LEG LTEXAM: US NGUYỄN DOP [...] Electronically authenticated by: LUCILA PRABHAKAR Date: 2023-03-15 18:55NoMercy Health Willard HospitalXR KNEE LT 4V or >on 35-97-0584FY KNEE LT 4V or >EXAM: XR KNEE [...] Electronically authenticated by: NAVEEN AZAR Date: 2023-03-15 19:13NoMercy Health Willard HospitalUS THYROIDon 72-87-2100HF THYROIDEXAMINATION: US THYROID HISTORY: Non-toxic multinodular goiter [...] Electronically authenticated by: NELIA TIJERINA Date: 2023-01-07 13:45[facility] HospitalC3 and C4 COMPLEMENTon 16-94-5191Mbetpnvaat C3, Serum95 mg/dL Rardcr75-038RaaCleveland Clinic Medina HospitalComment on above:Performed By: #### HH #### [facility] [address] [address] [address] Kyree Josephplement C4, Serum25 mg/vRDbveqk95-61RjoCleveland Clinic Medina Hospital Comment on above:Performed By: #### HH #### [facility] [address] [address] [address] Kyree NealCOMPLEMENT TOTAL (CH50)on 28-50-1899Cdwyrepwji, Total (CH50)>60 Normal>41The Memorial HospitalComment on above:Result Comment: Age Male Female [...] of range values.Performed By: #### CH50T #### [facility] [address] [address] [address] Kyree Dsouza ANTIBODIESon 57-96-2479MTP Antibodies<0.6Iwppbz4.0-0.9The Memorial HospitalComment on above:Performed By: #### RNPAB ####[facility] [address] [address]. Kyree McgeeC AUTO DIFF on 44-52-5515VGEO #0.1 103/ulNormal0.0-0.1The Memorial HospitalComment on above: Performed By: #### SEDR #### [facility] [address] [address] [address] Kyree NealBasophils/100 WBC (Bld)1.2 %Normal0.2-2.0[facility] Comment on above:Performed By: #### SEDR #### [facility] [address] [address] [address] Kyree Jackson #0.6 103/ulNormal0.0-0.7The Memorial HospitalComment on above: Performed By: #### SEDR #### [facility] [address] [address] [address] Kyree Cooperosinophils/100 WBC (Bld)6.3 %Normal0.9-7.0[facility] Comment on above:Performed By: #### SEDR #### [facility] [address] [address] [address] Kyree Cooperrythrocyte distribution width (RBC) [Ratio]13.5 %Tktkll96.0-15.0 The Memorial HospitalComment on above:Performed By: #### SEDR #### [facility] [address] [place] [address] Dr. Kyree NealHematocrit (Bld) [Volume fraction]39.0 %Rvoyyl44.0-48.0The Memorial HospitalComment on above:Performed By: #### SEDR #### [facility] [address] [place] [address] Dr. Kyree NealHemoglobin (Bld) [Mass/Vol]12.6 g/xGYdkmte99.0-16.0The Memorial HospitalComment on above:Performed By: #### SEDR #### [facility] [address] [place] [address] Dr. Kyree King #0.02 10e3/ulNormal0.00-0.03The Memorial HospitalComment on above:Performed By: #### SEDR #### [facility] [address] [place] [address] Dr. Kyree King %0.2 %Normal0.0-0.5The Memorial HospitalComment on above: Performed By: #### SEDR #### [facility] [address] [place] [address] Dr. Kyree Koch #1.9 103/ulNormal1.2-3.8The Memorial HospitalComment on above:Performed By: #### SEDR #### [facility] [address] [place] [address] Dr. Kyree Orellanamphocytes/100 WBC (Bld)22.4 %Ckglyy20.5-60.0The Memorial HospitalComment on above:Performed By: #### SEDR #### [facility] [address] [place] [address] Dr. Kyree LindquistUAL DIFF REQNONormalThe Memorial HospitalComment on above: Performed By: #### SEDR #### [facility] [address] [place] [address] Dr. Kyree Mota (RBC) [Entitic mass]28.1 uaBaryih83.7-34.0The Memorial HospitalComment on above:Performed By: #### SEDR #### [facility] [address] [place] [address] Dr. Kyree Marino (RBC) [Mass/Vol]32.3 g/jMMksddw04.9-35.2The Memorial HospitalComment on above:Performed By: #### SEDR #### [facility] [address] [place] [address] Dr. Kyree MarinoV (RBC) [Entitic vol]87.1 gIBpwmng23.0-99.0The Memorial HospitalComment on above:Performed By: #### SEDR #### [facility] [address] [place] [address] Dr. Kyree Powers #0.8 103/ulNormal0.3-0.8The Memorial HospitalComment on above:Performed By: #### SEDR #### [facility] [address] [place] [address] Dr. Kyree Pintoocytes/100 WBC (Bld)9.0 %Normal1.7-12.0[facility] Comment on above:Performed By: #### SEDR #### [facility] [address] [place] [address] Dr. Kyree Sparks #5.3 103/ulNormal1.4-6.5The Memorial HospitalComment on above:Performed By: #### SEDR #### [facility] [address] [place] [address] Dr. Kyree Lebronutrophils/100 WBC (Bld)60.9 %Eyknej74.0-75.0The Memorial HospitalComment on above:Performed By: #### SEDR #### [facility] [address] [place] [address] Dr. Kyree Friendlet mean volume (Bld) [Entitic vol]9.7 fLNormal9.5-13.5The Memorial HospitalComment on above:Performed By: #### SEDR #### [facility] [address] [address] [address] Kyree NealPLT232 103/toYxpaze236-990Tvw Memorial HospitalComment on above: Performed By: #### SEDR #### [facility] [address] [address] [address] Kyree NealRBC4.48 106/ulNormal4.20-5.40The Memorial HospitalComment on above:Performed By: #### SEDR #### [facility] [address] [address] [address] Kyree NealWBC8.7 103/ulNormal4.0-11.0The Memorial HospitalComment on above: Performed By: #### SEDR #### [facility] [address] [address] [address] Kyree Reddy 71-58-9223CPX9.8 mg/dLCritically high<=1.0The Memorial HospitalComment on above:Performed By: #### CRP, CMP ####[facility] [address] [address]Dr. Kyree NealPROF 14(COMP METB)on 99-73-9948Juiwzot [Mass/Vol]3.6 g/dLNormal3.4-5.0[facility] Comment on above:Performed By: #### CRP, CMP ####[facility] [address] [address]Dr. Kyree Neal Albumin/Globulin [Mass ratio]1.0 {ratio}NormalThe Memorial HospitalComment on above:Performed By: #### CRP, CMP ####[facility] [address] [address]Dr. Kyree NealALP [Catalytic activity/Vol]75 U/L Glgsiq05-014Pqm Memorial HospitalComment on above:Performed By: #### CRP, CMP ####[facility] [address] [address]Dr. Kyree NealALT [Catalytic activity/Vol]17 U/PXktgpm10-61Tlq [facility] Comment on above:Performed By: #### CRP, CMP ####[facility] [address] [place], [place] [address]Dr. Yilan ChangAnion gap [Moles/Vol]11.8 mmol/LNormalThe Memorial HospitalComment on above:Performed By: #### CRP, CMP ####[facility] [address] [place], [place] [address]Dr. Yilan ChangAST [Catalytic activity/Vol]19 U/JPyvijh68-51Uut Memorial HospitalComment on above:Performed By: #### CRP, CMP ####[facility] [address] [place], [place] [address]Dr. Yilan Neal Bilirubin [Mass/Vol]0.6 mg/dLNormal0.2-1.0The Memorial HospitalComment on above: Performed By: #### CRP, CMP ####[facility] [address] [place], [place] [address]Dr. Yilan ChangCalcium [Mass/Vol]9.2 mg/dLNormal 8.5-10.1The Memorial HospitalComment on above:Performed By: #### CRP, CMP ####[facility] [address] [place], [place] [address]Dr. Yilan ChangChloride [Moles/Vol]99 mmol/OIaveaa28-024Bgd Memorial HospitalComment on above:Performed By: #### CRP, CMP ####[facility] [address] [place], [place] [address]Dr. Yilan ChangCO2 [Moles/Vol]30.5 mmol/LNormal 21.0-32.0The Memorial HospitalComment on above:Performed By: #### CRP, CMP ####[facility] [address] [place], [place] [address]Dr. Yilan ChangCreatinine [Mass/Vol]1.03 mg/dLCritically high0.55-1.02The Memorial HospitalComment on above:Performed By: #### CRP, CMP ####[facility] [address] [place], [place] [address]Dr. Yilan ChangEGFR-AF IVORIAN>60Normal>=60The Memorial HospitalComment on above:Performed By: #### CRP, CMP ####[facility] C[address]cos[address] [place], [place] [address]Dr. Yilan ChangEGFR-NON AF ZBQYTEUL66 mL/min/1.82h6Bspanrppvb low>=60The Memorial HospitalComment on above:Performed By: #### CRP, CMP ####[facility] [address] [place], [place] [address]Dr. Yilan Neal Globulin (S) [Mass/Vol]3.6 g/dLNormalThe Memorial HospitalComment on above: Performed By: #### CRP, CMP ####[facility] [address] [place], [place] [address]Dr. Yilan ChangGlucose [Mass/Vol]97 mg/cIOwmuvn17-327 The Memorial HospitalComment on above:Performed By: #### CRP, CMP ####[facility] I[address]ff[address]fq[address] [place], [place] [address]Dr. Yilan Neal Potassium [Moles/Vol]3.3 mmol/LCritically low3.5-5.1The Memorial HospitalComment on above:Performed By: #### CRP, CMP ####[facility] [address]wan[address] [place], [place] [address]Dr. Yilan ChangProtein [Mass/Vol]7.2 g/dLNormal 6.4-8.2The Memorial HospitalComment on above:Performed By: #### CRP, CMP ####[facility] [address] [place], [place] [address]Dr. Yilan ChangSodium [Moles/Vol]138 mmol/ZBfuchy630-241Nfs Memorial HospitalComment on above:Performed By: #### CRP, CMP ####[facility] [address] [place], [place] [address]Dr. Yilan ChangUrea nitrogen [Mass/Vol]28.0 mg/dL Critically high7.0-18.0The Memorial HospitalComment on above:Performed By: #### CRP, CMP ####[facility] [address] [address]Dr. Kyree Douglas nitrogen/Creatinine [Mass ratio]27.2 mg/mgNoalThe Memorial HospitalComment on above:Performed By: #### CRP, CMP ####[facility] [address] [address]Dr. Kyree NealSED RATE WESTERGRENon 64-71-8595QXZ RATE92 mm/hrCritically high<=30The Memorial HospitalComment on above:Performed By: #### SEDR #### [facility] [address] [address] [address] Kyree Brown RANDOM W/MICROSCOPICon 45-39-0009JCGBBIDHUEGZ SEENNormalNONE SEENCleveland Clinic Medina HospitalComment on above:Performed By: #### HH #### [facility] [address] [address] [address] Kyree Nair Ql (U)NegativeNormalNEGATIVEThe [facility] Comment on above:Performed By: #### HH #### [facility] [address] [address] [address] Kyree NealCASTRIO SEENNormalNONE SEENCleveland Clinic Medina HospitalComment on above:Performed By: #### HH #### [facility] [address] [address] [address] Kyree Allred (U)CLEARNormalCLEARCleveland Clinic Medina HospitalComselect [facility] on above: Performed By: #### HH #### [facility] [address] [address] [address] Kyree Damico (U)YELLOWNormalYELLOWCleveland Clinic Medina HospitalComment on above: Performed By: #### HH #### [facility] [address] [address] [address] Kyree NealCrystals LM Nom (Urine sed)NONE SEENNormalNONE SEENCleveland Clinic Medina HospitalComment on above:Performed By: #### HH #### [facility] [address] [address] [address] Adorno ChangEpithelial cells LM Ql (Urine sed)RARENormalNONE SEEN /RAREThe Memorial HospitalComment on above:Performed By: #### HH #### [facility] [address] [address] [address] Kyree NealGlucose Ql (U)NegativeNormalNEGATIVECleveland Clinic Medina HospitalComment on above:Performed By: #### HH #### [facility] [address] [address] [address] Kyree NealHemoglobin Ql (U)NegativeNormalNEGATIVEFirelands Regional Medical Center on above:Performed By: #### HH #### [facility] [address] [place] [address] Dr. Kyree NealKetones Ql (U)NegativeNormalNEGATIVECleveland Clinic Medina HospitalComment on above:Performed By: #### HH #### [facility] [address] [place] [address] Dr. Kyree NealLEUKOCYTESNegativeNormalNEGATIVECleveland Clinic Medina HospitalComment on above:Performed By: #### HH #### [facility] [address] [place] [address] Dr. Kyree NealMUCOUSNONE SEENNormalNONE SEENCleveland Clinic Medina HospitalComment on above:Performed By: #### HH #### [facility] [address] [place] [address] Dr. Kyree NealNitrite Ql (U)NegativeNormalNEGATIVECleveland Clinic Medina HospitalComment on above:Performed By: #### HH #### [facility] [address] [place] [address] Dr. Kyree NealpH (U)7.0 [pH]Normal5-9The Memorial HospitalComment on above: Performed By: #### HH #### [facility] [address] [place] [address] Dr. Kyree NealHlmtxVLE5-8Hobqry6-6Hza Memorial HospitalComment on above:Performed By: #### HH #### [facility] [address] [place] [address] Dr. Kyree NealSPEC GRAVITY1.353Aavjbi1.005-<=1.025The Memorial HospitalComment on above:Performed By: #### HH #### [facility] [address] [address] [address] Kyree Brown PROTEINNegativeNormalNEGATIVE/ TRACEThe [facility] Comment on above:Performed By: #### HH #### [facility] [address] [address] [address] Kyree Oviedobilinogen Qn (U)1.0 {Herrera'U}/dLNormal0.2 - 1.0The Memorial HospitalComment on above:Performed By: #### HH #### [facility] [address] [address] [address] Kyree FinneyNONLeydi SEENNormalNONE SEENThe Memorial HospitalComment on above: Performed By: #### HH #### [facility] [address] [address] [address] Kyree Caba identified Anaer cx Nom (Unsp spec)on 11-10-7225Ndnykde HealthGlucose Auto test strip (Bld) [Mass/Vol]on 52-69-0517Pxhizru [Mass/Vol]93 mg/dL70 - 99 mg/dLTrinity HealthInterpretation and review of laboratory results NormalTrinWalter P. Reuther Psychiatric [facility] HealthGlucose [Mass/Vol]101 mg/lBJsur43 - 99 mg/dL Renate HealthInterpretation and review of laboratory resultsAbnormalSelect Specialty Hospital [facility] HealthLaboratory - Microbiology and Antimicrobial susceptibilityon 05-61-7743Rrnrbtte identified Anaer cx Nom (Unsp spec)No anaerobes grown after 4 days.[facility] HospitalBacteria identified Sterile body fluid culture Nom (Unsp spec)on 65-46-2068Pgmmwnwv identified Cx Nom (Body fld)No growth at 3 days Renate HealthGlucose Auto test strip (Bld) [Mass/Vol]on 12-22-9698Nkothah [Mass/Vol]133 mg/cPEzin86 - 99 mg/dLTrinity HealthInterpretation and review of laboratory resultsAbnormalTrinity HealthTrinity HealthGlucose [Mass/Vol]141 mg/pQNcut59 - 99 mg/dLTrinity HealthInterpretation and review of laboratory resultsAbnormalTrinity HealthTrinity HealthLaboratory - Microbiology and Antimicrobial susceptibilityon 98-36-1160Cxtextjb identified Cx Nom (Tiss)No growth at 3 [...] a previously preliminary verified report.No Panel Informationon 26-43-1126Zrcusmg HealthBasic metabolic 2000 panelon 74-67-4152Dicxe gap [Moles/Vol]8 mmol/L6 - 18 Renate HealthCalcium [...] HealthTrinity HealthGlucose Auto test strip (Bld) [Mass/Vol]on 44-32-0229Moodokd [Mass/Vol]125 mg/dJAasq39 - 99 mg/dLWayne Memorial HospitalInterpretation and review of laboratory resultsAbnormSelect Specialty Hospital - [facility] Renate HealthGlucose [Mass/Vol]94 mg/dL70 - 99 mg/dLSouthside Health Interpretation and review of laboratory resultsNormalSelect Specialty [facility] HealthGlucose [Mass/Vol]93 mg/dL70 - 99 mg/dLTrinmercy health defiance hospital HealthInterpretation and review of laboratory resultsNormUpper [facility] HealthGlucose [Mass/Vol] 87 mg/dL70 - 99 mg/dLSouthside HealthInterpretation and review of laboratory resultsNormMyMichigan Medical Center SaultHemogram and platelets WO differential panel (Bld)on 69-09-3408Gbxgxzglyyq distribution width (RBC) [Ratio]13.9 %11.0 - 14.8 %[facility] HospitalHematocrit (Bld) [Volume fraction]39.6 %34.3 - 47.9 % [facility] HospitalHemoglobin (Bld) [Mass/Vol]12.2 g/dL12.0 - 16.0 g/dLWayne Memorial Hospital Interpretation and review of laboratory resultsNormalFox Chase Cancer CenterH (RBC) [Entitic mass]27.7 pgTrinLehigh Valley Hospital - HazeltonHC (RBC) [Mass/Vol]30.8 g/dL30.8 - 35.3 g/dLFox Chase Cancer CenterV (RBC) [Entitic vol]90.0 fLTrinmercy health defiance hospital HealthPlatelet mean volume (Bld) [Entitic vol]10.3 fLTrinmercy health defiance hospital HealthPlatelets (Bld) [#/Vol]194 10*3/uLTrinity HealthRBC (Bld) [#/Vol]4.40 10*6/uLTrinity HealthWBC (Bld) [#/Vol]9.2 10*3/uLTrAscension Providence Hospital HealthBasic metabolic 2000 panelon 06-63-9565Rbdun gap [Moles/Vol]9 mmol/L6 - 18[facility] HealthCalcium [Mass/Vol]9.0 mg/dL8.9 - 10.3 mg/dLTrinmercy health defiance hospital HealthChloride [Moles/Vol]105 mmol/L98 - 107 mmol/LTrinity HealthCO2 [Moles/Vol]25 mmol/L22 - 32 mmol/LTrinity Health Creatinine [Mass/Vol]0.97 mg/dL0.60 - 1.30 mg/dLTrinity HealthGFR/1.73 sq M.predicted among non-blacks MDRD (S/P/Bld) [Vol rate/Area]64 mL/min/{1.73_m2}- PINFTfirst hospital wyoming valley HealthComment on above:Effective July 27, 2022, calculation based on the Chronic Kidney Disease Epidemiology Collaboration (CKD-EPI) equation refit without adjustment for race.Glucose [Mass/Vol]132 mg/lKYspx97 - 99 mg/dL Renate HealthInterpretation and review of laboratory resultsAbnormalTrinity HealthPotassium [Moles/Vol]4.6 mmol/L3.6 - 5.1 mmol/LTrinity HealthSodium [Moles/Vol]139 mmol/L136 - 145 mmol/LTrinity HealthUrea nitrogen [Mass/Vol]19 mg/dL8 - 20 mg/dLTrinity HealthUrea nitrogen/Creatinine [Mass ratio]19.6 mg/mg 12.0 - 20.0Trinity HealthTrinity HealthGlucose Auto test strip (Bld) [Mass/Vol] on 04-99-0744Rnneljf [Mass/Vol]122 mg/mKSrah09 - 99 mg/dLTrinity Health Interpretation and review of laboratory resultsAbnormalTrinity HealthTrinity HealthGlucose [Mass/Vol]150 mg/wOSvdd68 - 99 mg/dLTrinity HealthInterpretation and review of laboratory resultsAbnormalTrinity HealthTrinity HealthGlucose [Mass/Vol]116 mg/xCTlbx77 - 99 mg/dLTrinity HealthInterpretation and review of laboratory resultsAbnormalTrinity HealthTrinity HealthGlucose [Mass/Vol]115 mg/wCSqpj97 - 99 mg/dLTrinity HealthInterpretation and review of laboratory resultsAbnormalTrinity HealthTrinity HealthHemogram and platelets WO differential panel (Bld)on 41-79-9644Tlfxsfdrguc distribution width (RBC) [Ratio]13.9 %11.0 - 14.8 %Renate HealthHematocrit (Bld) [Volume fraction]40.6 % 34.3 - 47.9 %Renate HealthHemoglobin (Bld) [Mass/Vol]13.0 g/dL12.0 - 16.0 g/dL [facility] HospitalInterpretation and review of laboratory resultsNormalFox Chase Cancer CenterH (RBC) [Entitic mass]28.8 pgFox Chase Cancer CenterHC (RBC) [Mass/Vol]32.0 g/dL30.8 - 35.3 g/dLFox Chase Cancer CenterV (RBC) [Entitic vol]89.8 [facility] Platelet mean volume (Bld) [Entitic vol]10.0 [facility] Jackson StreetPlatelets (Bld) [#/Vol]243 10*3/[facility] CenterRBC (Bld) [#/Vol]4.52 10*6/[facility] CenterWBC (Bld) [#/Vol]10.2 10*3/[facility] HealthPathology studyOrdered By: Nathaniel Morel on 17-31-0490Twpfjtjr Jeff (Reference lab test) t9pqaXYcYRSvgKXwYTTeXjjrwwHiJEXtyWBmU6YvjvbiFIohFH0iJM4ytCmqjHVuaUOcFAUkGkTbb0yv r202rSXfe7jgOIXKuaby sNd7y8tgYJEQYTckVAFWZFz7pDskD60xw5B3YiyqJ8fzSALeYCmieqDsfsW3DWLtwWFtJAg2GOBwjXGt dzEyMjQwXHBhcGVyaDE1 RDAuXN3jhlljDGiiQHgwINTirxU3VWQptYJpW0EuXWDvRQ7qcyekOQH7DOedOOKmCUG7YmFlQEKti3Xg cpt6PySsgGYcGLlriHWs ykmkRYJqCLMmPYurP0VvDSBiVJH7HIVwydvcQPafG90hpQ9eHT48QYzclhAuVFQnp0EgSLJpYGKbWXbo HZGdukMeONboqW4hf5l0 TYcrFx3bAPKvbsxtIAS3CgNoNV44UxjubURrZWQQigDsQDSbzUJvEzBbXHWRcSyxMMBnQlW5LsOBuAVb i2Llk7DvTwQrfUXztG9tsZiiwdE3MAAplZNmNi7opOGoTegkBFI2Wolppcj Health Work Phone: Microscopic description Jeff (Endomyocardium) f8njzGQcSLKrvGFNPVCdZTMxVZ3qdDppeLw1mXwcJHSlxjZ8sFXjKWewf0vdOJL9k4vzxuXBFulcKQHy LF4dUXjjEQSiAO7rDnIl ARXmTlPcOMTahABgmpSfQkIrISKnnETflQJ4MIQkPN4hcvdvWTvuMItnFXWlhjO3LJTdbZZxR6UwFAHo CR1ckhxkNUQ3UDVWFoiv Eo4kdNBbwJPZAwmeZjMnDbEyYVYkHJWsSTJwaCdpCGHqPQu9qI0Ca8uxOdetJ0uhzrXicBSsDa2luABS OZzzFGVYKJk8wO4FERYz L0MzEM1Kq1rvSXNsnYMpOTG0IFeyc5vcKUepOJM9NGHlVHOnXALsOI1JBmPkEJQ9ZxW7PUS0PvZ0TAl7 XNZOQUDiPtc6SwUfCMo9 CBk0BWamcielFUq6MMTiAMqcdVKlCI5uhAscCmifrNnwu7XldYNuFNLnBJdcrFLcUSOrRBZtZUlcOzTS UrBkGeYgYeI9QvI7RbNr LYl4EAxsM2UVORCxATT8YDx9RbY8UnM8STu7AZXKTx6fVfArNIv4AXa8WYD9JMS2YlFbEJRqLtSbNZMi EMYwQHfonJWkMM0xoAig DFHlXL1XQIFrSOvvBSXoMDUqGkYxRC3kC75dKZmmAITuqMufYhSiULRubLGmxHGwfKQpv2U7dVPrKQe9 pAOgs1Y7iYphEZnoOzxg eXGimAXpBcoiNMBkVXgzuPYmEJKJFlhnoZEswlnbGZmdhiQiRIRiFOqqNIz2qeYrZMYcDwTcJUXqD28r a6CMy9WtYT7OFLk8ulKj vehugN8oNLXzwgEqVWaxXdJwZdSxXRFIZFYgmLCpMRIrmrUja4JyVTloxcXeNHSkiPNdWQvxwGxkcOZ5 eNNneWNmEY5yVHJmIWJa AGxeNoWvx79uIERgdLLfLKQ8NFCnRKOsW9TiW1F7ZZJwVyYnuKIuidMzhXCgdB1eqwm5lA4tFSMxZWFu rAQhpK2huoDuttZvWTV6 fX3gJWChAI4uWPVrcPPkj3NcdEO1cDTzxRukn1CscIv6oGEgPAanEYIse2AtNSMxWtarQIFdLZyepVZm YP2HEWLuGoZiYCYhT5ft SDMzUW8ACBbmzvkXWhvtKFQrMIMkW0zsLLFhRKwhEILnI42dn4COb7Uhu5qamDqdu8CklYAfUB39GQGs dQXiPXF8WI9srYtcPLPpDRchIqNmNjRmMiYFJg8=[facility] Work Phone: Pathology report final diagnosis Narrative r5bhkIEfOXIoxYCjFDAzIfunliWlRLPvcHPfT4HjjfylLVziMH3iPA0qhRcsqVTnqIWuAIYyQjOfr8tq g835eRPnw1wdTQTIyory mCz2fHglJ94bo6F1FslrO8rbLOAkBTpyKTSySUyblFZqEGk2HQZzbMXggrNpIjNlDBOuqUYjjLA4GFXa YS7kimgwRPwwMAjiASZg uaS3RAOtpIGbA5HoNUWgLY7ebtdrHUB5SGqpGSZuJCA6KuMuLSLfe6Nfwdd8VsYzpCr9a9tlSPSnPUSy fQaqv8shFBV5XKWxzHTt N0uxkC5pYFBoRX2ddybjy7ylVQziRXesLENfuJT9hxY6TCSsfNPnA3JtyW7iLDEpFDLbhpQutIpvEuT0 WJwvvBIbljszApXjD92e qKG5rIIlhRGsQWssUzKtk51oZDavzAKkTINxNDZUWVkfxYz2JIXdv4Qzj4ggayhjnNZtiyQclFDxoQNa x2T9iDAtZJRghz3lzRNxfH5vpCGtqXZ9jS5bZpuzLWG6Ylbfnjw Health Work Phone: [employer] Work Phone: Cell count panel (Body fld)Ordered By: Navin Tracy on 70-87-7405Atrdflw (Body fld)HazyTrinCurrencyBird HealthColor (Body fld)YellowTrinMedgenome LabsRBC Auto (Body fld) [#/Vol]5000 /ii7Wlndmac Symmetric ComputingComment on above:The reference range and other method performance specifications have not been established for this fluid specimen. The test result should be integrated into the clinical context for interpretation.Specimen source Nom (Body fld)Synovial MintedWBC (Body fld) [#/Vol]167 /rx5Bvobwtz HealthComselect specialty hospital-[facility]aginaw on above:The reference range and other method performance specifications have not been established for this fluid specimen. The test result should be integrated into the clinical context for interpretation.MintedDifferential panel (Body fld)on 56-90-5527Vlvgwaydcqo/100 WBC Manual cnt (Body fld)71.0 %[employer] Monocytes+Macrophages/100 WBC (Body fld)17.0 %[facility] HealthNeutrophils/100 WBC (Body fld)3.0 %[facility] HealthOther cells/100 WBC (Body fld)9.0 %[facility] Comment on above:Lining cellsTrinity HealthGlucose Auto test strip (Bld) [Mass/Vol]on 92-32-4439Ahcyyyx [Mass/Vol]188 mg/dCXgaa95 - 99 mg/dLTrinmercy health defiance hospital HealthInterpretation and review of laboratory resultsAbnormalSouthside Health Renate HealthGlucose [Mass/Vol]121 mg/oQKvkr16 - 99 mg/dLTrinmercy health defiance hospital Health Interpretation and review of laboratory resultsAbnormalTrinmercy health defiance hospital HealthTrinmer[facility] health [facility] hospital HealthGlucose [Mass/Vol]78 mg/dL70 - 99 mg/dLTrinity HealthInterpretation and review of laboratory resultsNormalSelect [facility] HealthGlucose [Mass/Vol] 120 mg/iYMafc37 - 99 mg/dLTrinmercy health defiance hospital HealthInterpretation and review of laboratory resultsAbnormalSelect Specialty [facility] HdqhgbMLIU-IrO-1 (COVID-19) RNA TORRES+probe Ql (Resp)on 66-74-9243Dizyfclurahhqf and review of laboratory resultsNormal [facility] Memorial HospitalAdacysFTTQ-AoS-3 (COVID-19) RdRp gene TORRES+probe Ql (Resp)Not detectedNot DetectedTrinWalter P. Reuther Psychiatric Hospital HealthXR Knee 1-2 Views Lefton . [...] By: Self Edit Transcribed Date: 10/02/2022 15:21 [facility] HospitalRadiology Study observation (narrative)[facility] HospitalXR Knee 1-2 Views LeftOrdered By: Vlad Fiore on 95-32-8582Ygksjog [employer] Work Phone: Office Visit (Cardiology)on 35-66-0480Ucjuav-up visit Diagnoses/Problems Assessed Chronic right-sided congestive heart [...] Weight Tips; Status:Complete - Retrospective Authorization; Done: [id number] Some eating tips that can help you lose weight.; Status:Complete - Retrospective Authorization; Done: [id number] SocHx: Former smoker Tobacco Use Screening; Status:Complete; Done: [id number] Patient Instructions Please bring all medicines, vitamins, [...] implantable device. She will discuss with her assistant principal Dr. Encarnacion 5. I reviewed her recent [...] AerosolUSE (more content not included)...NormalUH TouchworksTobacco Screening.on 76-25-9409Ncnf risk assessmenta) No falls within the last year-[facility] Gongpingjia 250 DO Work Phone: Tobacco use status CPHSb) NoMP-[facility] uTrack TV 250 DO Work Phone: Tobacco Screening.YesMP-[facility] deskwolfusky 250 DO Work Phone: pth INTACTon 88-34-6504YUL, Jwgzqg14 pg/fOChroil05-44 The Memorial HospitalComment on above:Performed By: #### PTHINT ####[facility] [address] [address]Dr. Kyree Neal HEMOGRAM AND PLATELon 73-78-5042Lsamuulwzm (Bld) [Volume fraction]38.4 %Normal 36.0-48.0The Memorial HospitalComment on above:Performed By: #### HH #### [facility] [address] [place] [address] Dr. Kyree NealHemoglobin (Bld) [Mass/Vol]12.2 g/vWUpekwo53.0-16.0The Memorial HospitalComment on above:Performed By: #### HH #### [facility] [address] [place] [address] Dr. Kyree Marino (RBC) [Entitic mass]28.6 jbWndvjk30.7-34.0The Memorial HospitalComment on above:Performed By: #### HH #### [facility] [address] [place] [address] Dr. Kyree Marino (RBC) [Mass/Vol]31.8 g/tIZebomj58.9-35.2The Memorial HospitalComment on above:Performed By: #### HH #### [facility] [address] [place] [address] Dr. Kyree Marino (RBC) [Entitic vol]89.9 iSWseplw55.0-99.0The Memorial HospitalComment on above:Performed By: #### HH #### [facility] [address] [place] [address] Dr. Kyree NealPLT250 103/mcBkpwzl225-507Tdy Memorial HospitalComment on above: Performed By: #### HH #### [facility] [address] [place] [address] Dr. Kyree NealRBC4.27 106/ulNormal4.20-5.40The Memorial HospitalComment on above:Performed By: #### HH #### [facility] [address] [address] [address] Kyree NealWBC7.7 103/ulNormal4.0-11.0The Memorial HospitalComment on above: Performed By: #### HH #### [facility] [address] [address] [address] Kyree NealMAGNESIUMon 42-58-1953Ujhzeofjf [Mass/Vol]2.2 mg/dLNormal1.8-2.4 The Memorial HospitalComment on above:Performed By: #### URIC, CMP, MG ####[facility] [address] [address]Dr. Kyree NealPROF 14(COMP METB)on 88-41-3307Jdglhpy [Mass/Vol]3.5 g/dLNormal 3.4-5.0The Memorial HospitalComment on above:Performed By: #### URIC, CMP, MG ####[facility] [address] [address]Dr. Kyree NealAlbumin/Globulin [Mass ratio]0.9 {ratio}NormalThe [facility] Hospital Comment on above:Performed By: #### URIC, CMP, MG ####[facility] [address] [address]Dr. Kyree NealALP [Catalytic activity/Vol]61 U/YZzaqzr35-410Ifj [facility] Centerment on above:Performed By: #### URIC, CMP, MG ####[facility] [address] [address]Dr. Kyree NealALT [Catalytic activity/Vol]23 U/L Nzblld50-23Gew [facility] Medical Centerment on above:Performed By: #### URIC, CMP, MG ####[facility] [address] [address]Dr. Kyree NealAnion gap [Moles/Vol]9.9 mmol/LNormalThe Memorial HospitalComment on above:Performed By: #### URIC, CMP, MG ####[facility] [address] [address]Dr. Yilan ChangAST [Catalytic activity/Vol]21 U/ZPnlwep87-30Ybl Memorial HospitalComment on above:Performed By: #### URIC, CMP, MG ####[facility] [address] [address]Dr. Yilan ChangBilirubin [Mass/Vol]0.3 mg/dLNormal0.2-1.0The Memorial HospitalComment on above:Performed By: #### URIC, CMP, MG ####[facility] [address] [place], [place] [address]Dr. Yilan ChangCalcium [Mass/Vol]9.0 mg/dLNormal8.5-10.1The Memorial HospitalComment on above:Performed By: #### URIC, CMP, MG ####[facility] Kqkur[address] [place], [place] [address]Dr. Yilan ChangChloride [Moles/Vol]106 mmol/LNormal 98-107The Memorial HospitalComment on above:Performed By: #### URIC, CMP, MG ####[facility] Ebghagapkg[address] [place], [place] [address]Dr. Yilan ChangCO2 [Moles/Vol]29.4 mmol/HJcooxa55.0-32.0The Memorial HospitalComment on above:Performed By: #### URIC, CMP, MG ####[facility] [address]ibez[address] [place], [place] [address]Dr. Yilan ChangCreatinine [Mass/Vol]0.90 mg/dLNormal0.55-1.02The Memorial HospitalComment on above:Performed By: #### URIC, CMP, MG ####[facility] Rafrpssg[address] [place], [place] [address]Dr. Yilan ChangEGFR-AF IVORIAN>60Normal>=60[facility] Comment on above:Performed By: #### URIC, CMP, MG ####[facility] Qekzydkchi[address] [place], [place] [address]Dr. Yilan ChangEGFR-NON AF IVORIAN>60Normal>=60The [facility] Medical Centerment on above:Performed By: #### URIC, CMP, MG ####[facility] [address] [address]Dr. Yilan ChangGlobulin (S) [Mass/Vol]3.8 g/dLNormOhio State Harding HospitalComment on above:Performed By: #### URIC, CMP, MG ####[facility] [address] [address]Dr. Yilan ChangGlucose [Mass/Vol]89 mg/gDUbcroq52-815Esm Memorial HospitalComselect [facility] on above:Performed By: #### URIC, CMP, MG ####[facility] Bikehf[address] [place], [place] [address]Dr. Yilan ChangPotassium [Moles/Vol]4.3 mmol/LNormal 3.5-5.1The Memorial HospitalComselect specialty hospital[facility] on above:Performed By: #### URIC, CMP, MG ####[facility] [address] [place], [place] [address]Dr. Yilan ChangProtein [Mass/Vol]7.3 g/dLNormal6.4-8.2The Memorial HospitalComselect specialty hospital-[facility] on above:Performed By: #### URIC, CMP, MG ####[facility] [address] [address]Dr. Yilan ChangSodium [Moles/Vol]141 mmol/L Miadtq473-693Ddz [facility] on above:Performed By: #### URIC, CMP, MG ####[facility] [address] [address]Dr. Yilan ChangUrea nitrogen [Mass/Vol]18.0 mg/dLNormal7.0-18.0The Memorial HospitalComment on above:Performed By: #### URIC, CMP, MG ####[facility] [address] [address]Dr. Yilan ChangUrea nitrogen/Creatinine [Mass ratio]20.0 mg/mgNoMercy Health Willard HospitalComment on above:Performed By: #### URIC, CMP, MG ####[facility] [address] [address]Dr. Kyree Wang 72-86-0547Ptswvsony Ql (U)NegativeNormalNEGATIVECleveland Clinic Medina HospitalComment on above:Performed By: #### SEDR #### [facility] [address] [address] [address] Kyree NealClarity (U)CLEARNormalCLEARCleveland Clinic Medina HospitalComment on above: Performed By: #### SEDR #### [facility] [address] [address] [address] Kyree Fordlor (U)YELLOWNormalYELLOWCleveland Clinic Medina HospitalComment on above: Performed By: #### SEDR #### [facility] [address] [address] [address] Kyree NealGlucose Ql (U)NegativeNormalNEGATIVECleveland Clinic Medina HospitalComment on above:Performed By: #### SEDR #### [facility] [address] [address] [address] Kyree NealHemoglobin Ql (U)NegativeNormalNEGLake County Memorial Hospital [facility] West on above:Performed By: #### SEDR #### [facility] [address] [address] [address] Kyree NealKetones Ql (U)NegativeNormalNEGATIVECleveland Clinic Medina HospitalComment on above:Performed By: #### SEDR #### [facility] [address] [address] [address] Kyree NealLEUKOCYTESNegativeNormalNEGATIVECleveland Clinic Medina HospitalComselect specialty hospital[facility] on above:Performed By: #### SEDR #### [facility] [address] [address] [address] Kyree NealNitrite Ql (U)NegativeNormalNEGATIVECleveland Clinic Medina HospitalComment on above:Performed By: #### SEDR #### [facility] [address] [address] [address] Kyree NealpH (U)5.5 [pH]Normal5-9The Memorial HospitalComment on above: Performed By: #### SEDR #### [facility] [address] [address] [address] Kyree NealSPEC GRAVITY1.105Ocilis4.005-<=1.025The Memorial HospitalComment on above:Performed By: #### SEDR #### [facility] [address] [address] [address] Kyree Brown PROTEINNegativeNormalNEGATIVE/ TRACEThe [facility] Hospital Comment on above:Performed By: #### SEDR #### [facility] [address] [address] [address] Kyree Oviedobilinogen Qn (U)0.2 {Herrera'U}/dLNormal0.2 - 1.0The Memorial HospitalComment on above:Performed By: #### SEDR #### [facility] [address] [address] [address] Kyree NealURIC ACID SERUMon 91-10-3604Jgril [Mass/Vol]3.7 mg/dLNormal 2.6-6.0The Memorial HospitalComment on above:Performed By: #### URIC, CMP, MG ####[facility] [address] [place], [place] [address]DrDulce NealURINE T PROTEIN CREAT RATIOon 70-83-3063Nnyzblt (U) [Mass/Vol]11.1 mg/dLNormal<=12.0The Memorial HospitalComment on above:Performed By: #### URTPCR ####[facility] [address] [place], [place] [address]Dr. Kyree NealUR PROT CREAT RAT0.18NormalThe Memorial HospitalComment on above: Performed By: #### URTPCR ####[facility] [address] [place], [place] [address]Dr. Kyree NealURINE CREAT62.29 mg/dLNormal 20.00-300.00The Memorial HospitalComment on above:Performed By: #### URTPCR ####[facility] [address] [place], [place] [address]VpDr. Kyree NealVITAMIN D 25 OHon 82-75-4395HWC D 25-OH57.7 ng/mLNMercy Health West HospitalComment on above:Performed By: #### HH #### [facility] [address] [place], [place] [address] Dr. Kyree Goldman RANGESSEE Southview Medical CenterComment on above: Result Comment: <20 ng/mL Vit D deficient 20 - <30 ng/mL Vit D insufficient 30 - 100 ng/mL Vit D sufficient >100 ng/mL Potential ToxicityPerformed By: #### HH #### [facility] [address] [address] [address] Kyree NealA1C HEMOGLOBINon 04-69-5611VeW9o (Bld) [Mass fraction]5.7 %[employer] Other HbA1c (Bld) [Mass fraction]on 07-81-2525I8Y HEMOGLOBIN PrePayMe Other Urine culture routineOrdered By: Deidra Lee on 03-84-8068Eiwtcogb identified Cx Nom (U)Escherichia coliUniversity Hospitals Parma Medical CenterAutomated erythrocytes count in urine sediment (number/area) Ordered By: Deidra Silvaimore on 53-31-0352AFG Auto (Urine sed) [#/Area]10-19 [HPF]0-4FSelect Medical Specialty Hospital - Boardman, IncAutomated leukocytes count in urine sediment (number/area)Ordered By: Deidra Bullimore on 43-40-9152BWK Auto (Urine sed) [#/Area]20-49 [HPF]0-4FSelect Medical Specialty Hospital - Boardman, IncBilirubin Test strip Ql (U)Ordered By: Deidra Bullimore on 35-26-8250Yoyhcbqvq Ql (U)Negative NegativeUniversity Hospitals Parma Medical CenterColor Auto (U)Ordered By: Deidra Bullimore on 00-00-4446Iiqgo (U)YellowYellowUniversity Hospitals Parma Medical Center Ketones Auto test strip (U) [Mass/Vol]Ordered By: Deidra Bullimore on 05-27-2022 Ketones (U) [Mass/Vol]NegativeNegativeUniversity Hospitals Parma Medical Center Laboratory - UrinalysisOrdered By: Deidra Lee on 55-56-6188Pzegcbq casts LM Ql (Urine sed)0-8 [LPF]0-8[facility] Hospitals Parma Medical CenterNitrite Test strip Ql (U)Ordered By: Deidra Silvaimore on 64-35-9566Hfaseea Ql (U)NegativeNegative [facility] Medical CenterProtein Auto test strip (U) [Mass/Vol]Ordered By: Deidra Silvaimore on 55-99-0267Ybxdokb (U) [Mass/Vol]NegativeNegative [facility] Medical Centerpecific gravity Auto test strip (U) [Rel density]Ordered By: Deidra Lee on 07-08-7120Lkfodlwi gravity (U) [Rel density]1.0071.001-1.030As[facility]ula County Medical Centerquamous epithelial cells detection in urine sediment by light microscopyOrdered By: Deidra Lee on 91-63-3898Xuewzwfpgc cells.squamous LM Ql (Urine sed)None seen [HPF]0-2FSelect Medical Specialty Hospital - Boardman, IncUrine bacteria detection by automated methodOrdered By: Deidra Lee on 75-94-1795Jnfpietf Auto Ql (U)2+None Seen [facility] Parma Medical CenterUrine clarity by refractometry automatedOrdered By: Deidra Lee on 69-02-9281Enlcdum Refractometry automated (U)ClearClear [facility] Medical CenterUrine glucose measurement by automated test strip (mass/volume)Ordered By: Deidra Lee on 10-23-4466Yqjlhhl Auto test strip (U) [Mass/Vol]Normal mg/dLNormAccess Hospital DaytonUrine hemoglobin detection by automated test stripOrdered By: Deidra Lee on 86-08-0996Nmanbgmxlm Auto test strip Ql (U)2+[facility] County HospitalUrine leukocyte esterase detection by automated test stripOrdered By: Deidra Silvaimore on 16-73-0024Zfdlvoulx esterase Auto test strip Ql (U)3+ NegativeUniversity Hospitals Parma Medical CenterUrobilinogen Auto test strip (U) [Mass/Vol]Ordered By: Deidra Silvaimore on 60-12-7846Yfyxtzyugiyg (U) [Mass/Vol] Normal mg/dLNormalUniversity Hospitals Parma Medical CenterpH Auto test strip (U)Ordered By: Deidra Lee on 16-98-0297qR (U)5.5 [pH]5.0-9.0[facility] Medical CenterBasophils Auto (Bld) [#/Vol]Ordered By: Peter Sosa on 95-92-6116Xjjvcortk (Bld) [#/Vol]0.1 10*3/uL0.0-0.2FSelect Medical Specialty Hospital - Boardman, IncBasophils/100 WBC Auto (Bld)Ordered By: Peter Sosa on 05-21-2022 Basophils/100 WBC (Bld)0.8 %.[facility] Medical CenterBlood hemoglobin measurement (mass/volume)Ordered By: Peter Sosa on 23-26-5489Hhrxgyqkkq (Bld) [Mass/Vol]12.8 g/dL11.8-15.4FSelect Medical Specialty Hospital - Boardman, IncBlood leukocytes automated count (number/volume)Ordered By: Peter Sosa on 65-75-4399CHX (Bld) [#/Vol]8.5 10*3/uL4.5-11.0[facility] Body fluid albumin measurement (mass/volume)Ordered By: Peter Sosa on 60-44-5975Awlevmv (Body fld) [Mass/Vol]3.7 g/dL3.2-5.5FSelect Medical Specialty Hospital - Boardman, IncCholesterol [Mass/volume] in Serum or PlasmaOrdered By: Peter Sosa on 91-57-0910Pvmdvqfgyds [Mass/Vol]204 mg/yL887-504PtlsfecqmUniversity Hospitals Parma Medical CenterComment on above:Chol less than 200 mg/dl low risk Chol 201-239 mg/dl borderline risk Chol 240 mg/dl and greater high riskCholesterol in LDL Calc [Mass/Vol]Ordered By: Peter Sosa on 37-21-1704Qizdyjssdon in LDL [Mass/Vol]129 mg/dL0-100 [facility] Parma Medical CenterComment on above:LDL ATP III CLASSIFICATION LDL less than 100 mg/dL Optimal LDL 100-129 mg/dL Near or above optimal LDL 130-159 mg/dL Borderline high LDL 160-189 mg/dL High LDL greater than 189 mg/dL Very highCholesterol in VLDL Calc [Mass/Vol]Ordered By: Peter Sosa on 16-45-1080Vnbsdbzxzss in VLDL [Mass/Vol]20 mg/dLUniversity Hospitals Parma Medical CenterCreatinine [Mass/volume] in UrineOrdered By: Peter Sosa on 82-80-1069Fhgoxyxizp (U) [Mass/Vol]185.2 mg/dLUniversity Hospitals Parma Medical CenterComment on above:No reference range establishedCreatinine and Glomerular filtration rate.predicted panel (S/P/Bld)Ordered By: Peter Sosa on 02-25-3402Tzdswytuff [Mass/Vol]1.31 mg/dL0.44-1.03[facility] Medical CenterEosinophils Auto (Bld) [#/Vol]Ordered By: Peter Sosa on 05-21-2022 Eosinophils (Bld) [#/Vol]0.3 10*3/uL0.0-0.45[facility] Eosinophils/100 WBC Auto (Bld)Ordered By: Peter Sosa on 05-21-2022 Eosinophils/100 WBC (Bld)3.4 %.[facility] Medical CenterErythrocyte distribution width Auto (RBC) [Ratio]Ordered By: Peter Sosa on 05-21-2022 Erythrocyte distribution width (RBC) [Ratio]14.8 %11.9-15.3FSelect Medical Specialty Hospital - Boardman, IncEstimated glomerular filtration rate (GFR) non- Ordered By: Peter Sosa on 69-13-1271ADH/1.73 sq M.predicted among non-blacks MDRD (S/P/Bld) [Vol rate/Area]41 mL/MinUniversity Hospitals Parma Medical CenterFolate [Mass/volume] in Serum or PlasmaOrdered By: Peter Sosa on 45-80-3996Fneymy [Mass/Vol]ng/mL>5.9[facility] CenterComment on above:Folate reference range: >5.9 ng/ml The WHO technical consultation on folate and vitamin b12 deficiencies has determined that folate concentrations less than 4 ng/ml are considered deficient.Globulin Calc (S) [Mass/Vol]Ordered By: Peter Sosa on [id number] (S) [Mass/Vol]2.7 g/dLUniversity Hospitals Parma Medical CenterHematocrit Auto (Bld) [Volume fraction]Ordered By: Peter Sosa on 70-56-2614Xcddgxxcsw (Bld) [Volume fraction]39.9 %34.0-46.4FSelect Medical Specialty Hospital - Boardman, IncLaboratory - Chemistry and Chemistry - challengeOrdered By: Peter Sosa on 34-27-7503Nzdwhepcc (Vitamin B12) [Mass/Vol]384 pg/qI540-321RiieuthuwUniversity Hospitals Parma Medical CenterLaboratory - Hematology and Cell countsOrdered By: Peter Sosa on 21-22-8476Uwqfvehxh RBC/100 WBC (Bld) [Ratio]0.1 %0-0.5 [facility] Medical CenterLymphocytes Auto (Bld) [#/Vol]Ordered By: Peter Sosa on 21-33-1705Tillfoejyfx (Bld) [#/Vol]1.9 10*3/uL1.00-4.8 [facility] Medical CenterLymphocytes/100 WBC Auto (Bld)Ordered By: Peter Sosa on 91-41-3894Ggpiujtbpux/100 WBC (Bld)22.6 %.[facility] Auto (RBC) [Entitic mass]Ordered By: Peter Sosa on 55-60-0682IPF (RBC) [Entitic mass]28.2 pg24.7-34.3FSelect Medical Specialty Hospital - Boardman, IncMCHC Auto (RBC) [Mass/Vol]Ordered By: Peter Sosa on 52-63-9353FIZR (RBC) [Mass/Vol]32.0 g/dL32.0-35.0[facility] Medical CenterMCV Auto (RBC) [Entitic vol]Ordered By: Peter Sosa on 57-03-5379XAR (RBC) [Entitic vol]87.9 oZ26-973AghjpoqxcUniversity Hospitals Parma Medical CenterMonocytes Auto (Bld) [#/Vol] Ordered By: Peter Sosa on 11-05-6094Zpmqrzvml (Bld) [#/Vol]0.7 10*3/uL 0.0-0.8[facility] Medical CenterMonocytes/100 WBC Auto (Bld)Ordered By: Peter Sosa on 57-16-2477Fewczvrwz/100 WBC (Bld)8.4 %.[facility] Medical CenterNeutrophils Auto (Bld) [#/Vol]Ordered By: Peter Sosa on 05-82-6107Ldtlcdvgcyq (Bld) [#/Vol]5.5 10*3/uL1.8-7.7FSelect Medical Specialty Hospital - Board[facility], IncNeutrophils/100 WBC Auto (Bld)Ordered By: Peter Sosa on 05-21-2022 Neutrophils/100 WBC (Bld)64.8 %.[facility] CenterNo Panel InformationOrdered By: Peter Sosa on 53-23-867260882736-Onghrqz Vitamin D Total 50.4 ng/xE41-277LofnbuwtjUniversity Hospitals Parma Medical CenterComment on above:VITAMIN D STATUS 25(OH)VITAMIN D RANGE (ng/mL) Deficient <20 Insufficient 20 to <30 Sufficient 30 to 100 Reference: Lubna MF,Aleida NC, Tavo EDWARDS, et al. Evaluation,treatment, and prevention of vitamin D deficiency; an Endocrine Society clinical practice guideline. JCEM. 2010; 96(7):1911-30.Estimated GFR ()49 mL/MinUniversity Hospitals Parma Medical CenterComment on above: GFR estimated reference range: According to KDOQI guidelines, <60 ml/min/1.73m2 is sufficient todiagnose a patient with chronic kidney disease.Pharmacy Creatinine Clearance (ChemN/[facility]lower HospitalPlatelet mean volume Auto (Bld) [Entitic vol]Ordered By: Peter Sosa on 84-64-8335Qogxfbvc mean volume (Bld) [Entitic vol]8.4 fL6.3-10.7FSelect Medical Specialty Hospital - [facility], Inc Platelets Auto (Bld) [#/Vol]Ordered By: Peter Sosa on 04-90-6580Zszpusvaq (Bld) [#/Vol]240 10*3/aI109-175XknxkmiguUniversity Hospitals Parma Medical CenterProtein [Mass/volume] in Serum or PlasmaOrdered By: Peter Sosa on 22-69-7645Vnhimxm [Mass/Vol]6.4 g/dL6.1-7.9[facility] Medical CenterRBC Auto (Bld) [#/Vol] Ordered By: Peter Sosa on 65-33-8603DXX (Bld) [#/Vol]4.54 10*6/uL3.60-5.00 [facility] Medical Centererum or plasma alanine aminotransferase measurement without P-5'-P (enzymatic activiOrdered By: Peter Sosa on 58-58-7297HTD No additional P-5'-P [Catalytic activity/Vol]27 U/C11-02AkjsatkuyAshtabula County Medical Centererum or plasma albumin/globulin mass ratioOrdered By: Peter Sosa on 63-34-0295Epmywnr/Globulin [Mass ratio]1.4 {ratio}[facility] Centererum or plasma alkaline phosphatase measurement (enzymatic activity/volume)Ordered By: Peter Sosa on 24-11-8366GUI [Catalytic activity/Vol]59 U/J70-76PfrxdomjbAshtabula County Medical Centererum or plasma aspartate aminotransferase measurement (enzymatic activity/volume)Ordered By: Peter Sosa on 96-18-1688CQJ [Catalytic activity/Vol]26 U/F49-74QvfyxdfqoAshtabula County Medical Centererum or plasma calcium measurement (mass/volume)Ordered By: Peter Sosa on 55-64-5978Zfjkain [Mass/Vol]9.5 mg/dL8.2-10.2FSelect Medical Specialty Hospital - Youngstownerum or plasma chloride measurement (moles/volume) Ordered By: Peter Sosa on 67-97-3793Mjxedkou [Moles/Vol]102 mmol/L95-114 [facility] Centererum or plasma glucose measurement (mass/volume)Ordered By: Peter Sosa on 12-26-2623Nvkgaoe [Mass/Vol]93 mg/dL 70-100[facility] Medical CenterComment on above:ADA recommended reference range Random Glucose Reference Range is dependent on time and content of last meal. Glucose of more than 200 mg/dL in a nonstressed, ambulatory subject supports the diagnosis of Diabetes Mellitus.Serum or plasma high density lipoprotein (HDL) cholesterol measurementOrdered By: Peter Sosa on 38-21-5932Bneafdrifub in HDL [Mass/Vol]55 mg/tW97-94YmbemiscmUniversity Hospitals Parma Medical CenterComment on above:HDL CHOL ATP-III CLASSIFICATION Cardiovascular Risk HDL > or equal to 60 mg/dL LOW HDL < 40 mg/dL HIGHSerum or plasma potassium measurement (moles/volume)Ordered By: Peter Sosa on 52-82-1864Yqomntsbp [Moles/Vol]4.2 mmol/L3.5-5.1FSelect Medical Specialty Hospital - Youngstownerum or plasma sodium measurement (moles/volume)Ordered By: Peter Sosa on 47-11-8573Yjfzfr [Moles/Vol]140 mmol/N908-255UtmjyhqlpAshtabula County Medical Centererum or plasma total bilirubin measurement (mass/volume) Ordered By: Peter Sosa on 29-11-0890Zcozqcgnb [Mass/Vol]0.4 mg/dL0.3-1.2 [facility] Centererum or plasma total carbon dioxide measurement (moles/volume)Ordered By: Peter Sosa on 91-47-6628YE2 [Moles/Vol]29.5 mmol/L22.0-30.0[facility] Centererum or plasma total cholesterol/high density lipoprotein (HDL) cholesterol mass ratOrdered By: Peter Sosa on 99-93-7742Ammwxbbhctq.total/Cholesterol in HDL [Mass ratio] 3.7 {ratio}<5.0[facility] Centererum or plasma urea nitrogen measurement (mass/volume)Ordered By: Peter Sosa on 42-94-3642Iglr nitrogen [Mass/Vol]30 mg/dL9-23[facility] CenterTS DL <= 0.005 mIU/L Qn Ordered By: Peter Sosa on 04-41-7329USW Qn2.03 m[IU]/L0.45-5.33[facility] Medical CenterThyroxine (T4) free [Mass/volume] in Serum or Plasma Ordered By: Peter Sosa on 04-18-3342Xgum T4 [Mass/Vol]0.96 ng/dL0.61-1.12 [facility] Medical CenterTriglyceride [Mass/volume] in Serum or Plasma Ordered By: Peter Sosa on 86-71-8485Vmkkhvsifevw [Mass/Vol]102 mg/wD46-508 [facility] CenterComment on above:TRIG ATP III CLASSIFICATION TRIG less than 150 mg/dL Normal TRIG 150-199 mg/dL Borderline high TRIG 200-500 mg/dL High TRIG greater than 500 mg/dL Very high Standard traceable to the Center for Disease Conrtrol and Prevention (CDC) test method.Triiodothyronine (T3) Free [Mass/volume] in Serum or PlasmaOrdered By: Peter Sosa on 75-27-0763Rwty T3 [Mass/Vol]3.88 pg/mL2.50-3.90[facility] Medical CenterUrine microalbumin measurement with detection limit of 20 mg/L or less (mass/volume)Ordered By: Peter Sosa on 55-32-5618Jglzjiz DL <= 20 mg/L (U) [Mass/Vol]mg/dL0.0-1.8[facility] Medical CenterUrine microalbumin/creatinine mass ratioOrdered By: Peter Sosa on 05-21-2022 Albumin/Creatinine DL <= 20 mg/L (U) [Mass ratio]TNPUniversity Hospitals Parma Medical CenterComment on above:Test not performedUS EXT NON VASC [...] Electronically authenticated by: ANUSHA AGUERO Date: 2022-05-08 16:18NoMercy Health Willard HospitalC3 and C4 COMPLEMENTon 39-08-0216Zzmiuhkznm C3, Irjwy100 mg/dL Critically ulja33-619Cer Memorial HospitalComment on above:Performed By: #### SEDR #### [facility] [address] [address] [address] Kyree NealComplement C4, Serum35 mg/pBKnsofn63-73[facility] Comment on above:Performed By: #### SEDR #### [facility] [address] [address] [address] Kyree NealCOMPLEMENT TOTAL (CH50)on 39-10-2603Ramemzskwr, Total (CH50)>60 Normal>41The [facility] Medical Centerment on above:Result Comment: Age Male Female 1 [...] out of range values.Performed By: #### CH50T ####[facility] [address] [address]Dr. Kyree NealRNP ANTIBODIES on 01-15-4802ROL Antibodies<0.5Dfpvqb8.0-0.9The Memorial HospitalComment on above:Performed By: #### SEDR #### [facility] [address] [address] [address] Kyree Polk AUTO DIFFon 54-64-9079ARPS #0.1 103/ulNormal0.0-0.1The Memorial HospitalComment on above:Performed By: #### CBC ####[facility] [address] [address]Dr.Kyree NealBasophils/100 WBC (Bld)0.9 %Normal0.2-2.0The [facility] Vincent Medical Centerment on above:Performed By: #### CBC ####[facility] [address] [address]Dr.Kyree ChangEO #0.4 103/ulNormal0.0-0.7The Memorial HospitalComment on above:Performed By: #### CBC ####[facility] [address] [address]Dr.Kyree ChangEosinophils/100 WBC (Bld)5.4 %Normal 0.9-7.0The [facility] Medical Centerment on above:Performed By: #### CBC ####[facility] [address] [address]Dr.Kyree Neal Erythrocyte distribution width (RBC) [Ratio]13.9 %Ijseok54.0-15.0The Memorial HospitalComment on above:Performed By: #### CBC ####[facility] Gog[address]xwn[address] [place], [place] [address]Dr.Kyree NealHematocrit (Bld) [Volume fraction]40.9 %Vkzbfl48.0-48.0The Memorial HospitalComment on above:Performed By: #### CBC ####[facility] K[address]xfjib[address] [place], [place] [address]Dr.Kyree NealHemoglobin (Bld) [Mass/Vol]12.8 g/dL Uyrrff52.0-16.0The Memorial HospitalComment on above:Performed By: #### CBC ####[facility] Nnnbudewxa[address] [place], [place] [address]Dr. Aaliyahlan ChangIG #0.03 10e3/ulNormal0.00-0.03The Memorial HospitalComment on above: Performed By: #### CBC ####[facility] Kepklxfxfn[address] [place], [place] [address]Dr.Kyree ChangIG %0.4 %Normal0.0-0.5The Memorial HospitalComment on above:Performed By: #### CBC ####[facility] He[address]iotavrs[address] [place], [place] [address]Dr.Kyree NealLYMPH #1.7 103/ulNormal1.2-3.8The Memorial HospitalComment on above:Performed By: #### CBC ####[facility] Xhkvuijolm[address] [place], [place] [address]Dr. Kyree NealLymphocytes/100 WBC (Bld)21.2 %Ztfkwg18.5-60.0[facility] Comment on above:Performed By: #### CBC ####[facility] Nfmbiiepvc[address] [place], [place] [address]Dr.Kyree NealMANUAL DIFF REQNONormalThe Memorial HospitalComment on above:Performed By: #### CBC ####[facility] Vjxqryapsp[address] [place], [place] [address]Dr.Kyree NealMCH (RBC) [Entitic mass]28.2 pfOetkej92.7-34.0The Memorial HospitalComment on above: Performed By: #### CBC ####[facility] Pmhyycmktk[address] [place], [place] [address]Dr.Kyree ÁngelHC (RBC) [Mass/Vol]31.3 g/dLNormal 29.9-35.2The Memorial HospitalComment on above:Performed By: #### CBC ####[facility] Huotvuzzmi[address] [place], [place] [address]Dr. Kyree NealMCV (RBC) [Entitic vol]90.1 lPOdjsjf53.0-99.0[facility] Comment on above:Performed By: #### CBC ####[facility] Rsrddbsclp[address] [place], [place] [address]DrArvind NealMONO #0.6 103/ulNormal0.3-0.8 The Memorial HospitalComment on above:Performed By: #### CBC ####[facility] Grnybtjzcx[address] [place], [place] [address]Dr.Aaliyahjeff Neal Monocytes/100 WBC (Bld)8.2 %Normal1.7-12.0The Memorial HospitalComment on above: Performed By: #### CBC ####[facility] Nlfqncxmip[address] [place], [place] [address]Dr.Kyree NealNEUT #5.0 103/ulNormal1.4-6.5The [facility] HospitalComment on above:Performed By: #### CBC ####[facility] Lbdikdifze[address] [place], [place] [address]Dr.Kyree NealNeutrophils/100 WBC (Bld)63.9 %Htrczo86.0-75.0The [facility] HospitalComment on above:Performed By: #### CBC ####[facility] Bjrjaibyhd[address] [place], [place] [address]DrArvind NealPlatelet mean volume (Bld) [Entitic vol]9.7 fLNormal9.5-13.5 The Memorial HospitalComment on above:Performed By: #### CBC ####[facility] N[address]gldrchw[address] [place], [place] [address]Dr.Kyree NealPLT245 103/ozKygszx155-883Vqn Memorial HospitalComment on above:Performed By: #### CBC ####[facility] [address] [address]DrDulce NealRBC4.54 106/ulNormal4.20-5.40The Memorial HospitalComment on above: Performed By: #### CBC ####[facility] [address] [address]Dr.Kyree NealWBC7.8 103/ulNormal4.0-11.0The Memorial HospitalComment on above:Performed By: #### CBC ####[facility] [address] [address]DrArvind NealCRPon 68-49-1087SWN4.1 mg/dLCritically high<=1.0The [facility] on above: Performed By: #### HH #### [facility] [address] [place] [address] Dr. Kyree Hall 14(COMP METB)on 30-51-3853Wmojkjv [Mass/Vol]3.5 g/dLNormal 3.4-5.0[facility] on above:Performed By: #### HH #### [facility] [address] [place] [address] Dr. Kyree NealAlbumin/Globulin [Mass ratio]0.9 {ratio}NormalThe [facility] on above:Performed By: #### HH #### [facility] [address] [place] [address] Dr. Kyree Rizo [Catalytic activity/Vol]64 U/MIvlgmw22-944Fgz Memorial HospitalComselect specialty hospital-[facility] on above:Performed By: #### HH #### [facility] [address] [place] [address] Dr. Kyree Perrin [Catalytic activity/Vol]29 U/VHqbcac32-81Dcy Memorial HospitalComment on above:Performed By: #### HH #### [facility] [address] [place], [place] [address] Dr. Kyree Shaw gap [Moles/Vol]10.5 mmol/LNormalCleveland Clinic Medina [facility] Comment on above:Performed By: #### HH #### [facility] [address] [address] [address] Kyree NealAST [Catalytic activity/Vol]20 U/AUtsewb99-13Nsi Memorial HospitalComment on above:Performed By: #### HH #### [facility] [address] [address] [address] Kyree NealBilirubin [Mass/Vol]0.4 mg/dLNormal0.2-1.0[facility] Comment on above:Performed By: #### HH #### [facility] [address] [place] [address] Dr. Kyree NealCalcium [Mass/Vol]9.4 mg/dLNormal8.5-10.1[facility] Comment on above:Performed By: #### HH #### [facility] [address] [place] [address] Dr. Kyree NealChloride [Moles/Vol]106 mmol/DOskxhb88-645CaxCleveland Clinic Medina Hospital Comment on above:Performed By: #### HH #### [facility] [address] [place] [address] Dr. Kyree NealCO2 [Moles/Vol]30.4 mmol/TOnhhas91.0-32.0[facility] Comment on above:Performed By: #### HH #### [facility] [address] [place] [address] Dr. Kyree NealCreatinine [Mass/Vol]1.03 mg/dLCritically high0.55-1.02[facility] HospitalComment on above:Performed By: #### HH #### [facility] [address] [place] [address] Dr. Kyree CooperGFR-AF IVORIAN>60Normal>=60The Memorial HospitalComment on above:Performed By: #### HH #### [facility] [address] [place] [address] Dr. Yilan ChangEGFR-NON AF ZIPQWMRJ95 mL/min/1.73l5Nqwfupbctp low>=60The Memorial HospitalComment on above:Performed By: #### HH #### [facility] [address] [address] [address] Kyree NealGlobulin (S) [Mass/Vol]3.8 g/dLNormOhio State Harding HospitalComment on above:Performed By: #### HH #### [facility] [address] [address] [address] Kyree NealGlucose [Mass/Vol]131 mg/dLCritically ifwp50-664Elc Memorial HospitalComment on above:Performed By: #### HH #### [facility] [address] [place] [address] Dr. Kyree NealPotassium [Moles/Vol]3.9 mmol/LNormal3.5-5.1[facility] Comment on above:Performed By: #### HH #### [facility] [address] [place] [address] Dr. Kyree NealProtein [Mass/Vol]7.3 g/dLNormal6.4-8.2[facility] Comment on above:Performed By: #### HH #### [facility] [address] [place] [address] Dr. Kyree NealSodium [Moles/Vol]143 mmol/KGdnphe213-312Izv [facility] Comment on above:Performed By: #### HH #### [facility] [address] [address] [address] Kyree NealUrea nitrogen [Mass/Vol]24.0 mg/dLCritically high7.0-18.0The Memorial HospitalComment on above:Performed By: #### HH #### [facility] [address] [place] [address] Dr. Kyree Douglas nitrogen/Creatinine [Mass ratio]23.3 mg/mgNoMercy Health Willard HospitalComment on above:Performed By: #### HH #### [facility] [address] [place] [address] Dr. Kyree Monson RATE WESTERGRENon 21-55-3432MHZ RATE40 mm/hrCritically high <=30[facility] Hospitalment on above:Performed By: #### HH #### [facility] [address] [address] [address] Kyree Brown RANDOM W/MICROSCOPICon 59-36-5308TRINMMKVFMAO SEENNormalNONE SEENCleveland Clinic Medina HospitalComment on above:Performed By: #### UAMIC #### [facility] [address] [address] [address] Kyree NealBilirubin Ql (U)NegativeNormalNEGATIVEFirelands Regional Medical Center on above:Performed By: #### UAMIC #### [facility] [address] [address] [address] Kyree NealCASTRIO SEENNormalNONE SEENCleveland Clinic Medina HospitalComment on above:Performed By: #### UAMIC #### [facility] [address] [address] [address] Kyree Donovanarity (U)CLEARNormalCLEARCleveland Clinic Medina HospitalComment on above: Performed By: #### UAMIC #### [facility] [address] [address] [address] Kyree Damico (U)LT. YELLOWNormalYSelect Medical Specialty Hospital - Southeast OhioComment on above:Performed By: #### UAMIC #### [facility] [address] [address] [address] Kyree NealCrystals LM Nom (Urine sed)NONE SEENNormalNONE SEENCleveland Clinic Medina HospitalComment on above:Performed By: #### UAMIC #### [facility] [address] [address] [address] Adorno ChangEpithelial cells LM Ql (Urine sed)MODERATEAbnormalNONE SEEN /RARE The Memorial HospitalComment on above:Performed By: #### UAMIC #### [facility] [address] [address] [address] Kyree Schillingose Ql (U)NegativeNormalNEGATIVECleveland Clinic Medina HospitalComment on above:Performed By: #### UAMIC #### [facility] [address] [address] [address] Kyree NealHemoglobin Ql (U)NegativeNormalNEGATIVECleveland Clinic Medina Hospital Comment on above:Performed By: #### UAMIC #### [facility] [address] [address] [address] Kyree NealKetones Ql (U)NegativeNormalNEGATIVECleveland Clinic Medina HospitalComment on above:Performed By: #### UAMIC #### [facility] [address] [address] [address] Kyree NealLEUKOCYTESNegativeNormalNEGATIVECleveland Clinic Medina HospitalComment on above:Performed By: #### UAMIC #### [facility] [address] [place] [address] Dr. Kyree NealMUCOUSNONE SEENNormalNONE SEENCleveland Clinic Medina HospitalComment on above:Performed By: #### UAMIC #### [facility] [address] [place] [address] Dr. Kyree NealNitrite Ql (U)NegativeNormalNEGATIVECleveland Clinic Medina HospitalComment on above:Performed By: #### UAMIC #### [facility] [address] [place] [address] Dr. Kyree NealpH (U)5.5 [pH]Normal5-9C[facility] HospitalComment on above: Performed By: #### UAMIC #### [facility] [address] [place] [address] Dr. Kyree NealRBCNONE SEENAbnormal0-2The Memorial HospitalComment on above: Performed By: #### UAMIC #### [facility] [address] [address] [address] Kyree NealSPEC GRAVITY1.684Fmwdzp5.005-<=1.025The Memorial HospitalComment on above:Performed By: #### UAMIC #### [facility] [address] [place] [address] Dr. Kyree NealUA PROTEINNegativeNormalNEGATIVE/ TRACEThe [facility] Hospital Comment on above:Performed By: #### UAMIC #### [facility] [address] [address] [address] Kyree Friedman Qn (U)0.2 {Herrera'U}/dLNormal0.2 - 1.0The Memorial HospitalComment on above:Performed By: #### UAMIC #### [facility] [address] [address] [address] Kyree LedesmaBCNONE SEENNormalNONE SEENThe Memorial HospitalComment on above: Performed By: #### UAMIC #### [facility] [address] [address] [address] Kyree Reddy 82-30-5458MPM4.9 mg/dLNormal<=1.0[facility] Comment on above:Performed By: #### CRP ####[facility] [address] [address]Dr.Yilan Monson RATE WESTERGRENon 26-96-5074QDZ RATE39 mm/hrCritically high<=30The Memorial HospitalComment on above:Performed By: #### SEDR #### [facility] [address] [address] [address] Kyree NealUniversity [facility] Metabolic PanelOrdered By: Reynaldo Trejo on 04-16-2022 Chloride [Moles/Vol]100 mmol/A99-950DmeneirwbUniversity Hospitals Parma Medical CenterGlucose [Mass/Vol]129 mg/sM27-985XhglkeppsUniversity Hospitals Parma Medical CenterComment on above:ADA recommended reference range Random Glucose [...] subject supports the diagnosisof Diabetes Mellitus.Sodium [Moles/Vol]140 mmol/C300-331OmmjychesUniversity Hospitals Parma Medical CenterUrea nitrogen [Mass/Vol]27 mg/dL9-23[facility] CenterBasic Metabolic Panelon 33-16-4593Kvcbvvb [Mass/Vol]9.0045948 mg/dLNormal8.2-10.2 mg/dLNoi-[facility] [employer] Other CO2 [Moles/Vol]29.90036562 mmol/PKosehz96.0-30.0 mmol/LNGarpun Other Creatinine [Mass/Vol]1.10635924 mg/dLHigh0.44-1.03 mg/dLNoi-[facility] [employer] Other Potassium [Moles/Vol]3.27288772 mmol/LNormal3.5-5.1 mmol/LNGarpun Other Basic Metabolic Wphpb00Gftvk [employer] Other Creatinine and Glomerular filtration rate.predicted panel (S/P/Bld)Ordered By: Reynaldo Trejo on 88-24-2432Taodhqjqkm [Mass/Vol]1.06 mg/dL0.44-1.03[facility] CenterEstimated glomerular filtration rate (GFR) non- AmericanOrdered By: Reynaldo Trejo on 43-78-0450EKJ/1.73 sq M.predicted among non-blacks MDRD (S/P/Bld) [Vol rate/Area]52 mL/MinUniversity Hospitals Parma Medical CenterNo Panel InformationOrdered By: Reynaldo Trejo on 94-05-1711Xncclaain GFR ()> 60 mL/MinUniversity Hospitals Parma Medical CenterComment on above:GFR estimated reference range: According to KDOQI guidelines, <60 ml/min/1.73m2 is sufficient todiagnose a patient with chronic kidney disease.Pharmacy Creatinine Clearance (ChemN/[facility] Centererum or plasma calcium measurement (mass/volume)Ordered By: Reynaldo Trejo on 70-09-9546Xauethl [Mass/Vol]9.7 mg/dL8.2-10.2FSelect Medical Specialty Hospital - Youngstownerum or plasma potassium measurement (moles/volume)Ordered By: Reynaldo Trejo on 15-29-8472Clxbkwjst [Moles/Vol]3.8 mmol/L3.5-5.1FSelect Medical Specialty Hospital - Youngstownerum or plasma total carbon dioxide measurement (moles/volume)Ordered By: Reynaldo Trejo on 72-20-4822BE9 [Moles/Vol]29.6 mmol/L 22.0-30.0[facility] Medical CenterAlbumin [Mass/volume] in Serum or PlasmaOrdered By: Megan Epps on 37-60-2936Joadoqo [Mass/Vol]3.6 g/dL3.2-5.5 [facility] Medical CenterBasophils Auto (Bld) [#/Vol]Ordered By: Megan Epps on 20-86-4157Btsodiwtg (Bld) [#/Vol]0.1 10*3/uL0.0-0.2FSelect Medical Specialty Hospital - Boardman, IncBasophils/100 WBC Auto (Bld)Ordered By: Megan Epps on 71-21-2542Whhkpcuda/100 WBC (Bld)0.8 %.[facility] Medical CenterBlood hemoglobin measurement (mass/volume)Ordered By: Megan Epps on 04-09-2022 Hemoglobin (Bld) [Mass/Vol]12.8 g/dL11.8-15.4FSelect Medical Specialty Hospital - [facility], Inc Blood leukocytes automated count (number/volume)Ordered By: Megan Epps on 96-56-1856ZCU (Bld) [#/Vol]9.5 10*3/uL4.5-11.0[facility] CT biopsyOrdered By: Megan Epps on 78-30-3568Ddwliuwwffr [Mass/Vol]242 mg/dL 180-380[facility] CenterCreatinine and Glomerular filtration rate.predicted panel (S/P/Bld)Ordered By: Megan Epps on 72-40-3731Zozedbcljd [Mass/Vol]1.06 mg/dL0.44-1.03University [facility] CenterEosinophils Auto (Bld) [#/Vol]Ordered By: Megan Epps on 62-61-3092Eayqavhfrct (Bld) [#/Vol]0.5 10*3/uL0.0-0.45[facility] CenterEosinophils/100 WBC Auto (Bld) Ordered By: Megan Epps on 08-10-2643Xfwsuaziekl/100 WBC (Bld)5.5 %.[facility] CenterErythrocyte distribution width Auto (RBC) [Ratio]Ordered By: Megan Epps on 77-97-5535Jxifyyoabxw distribution width (RBC) [Ratio]14.6 %11.9-15.3FSelect Medical Specialty Hospital - Boardman, IncEstimated glomerular filtration rate (GFR) non- AmericanOrdered By: Megan Epps on 57-75-4597NAD/1.73 sq M.predicted among non-blacks MDRD (S/P/Bld) [Vol rate/Area]52 mL/MinUniversity Hospitals Parma Medical CenterFerritin [Mass/volume] in Serum or PlasmaOrdered By: Megan Epps on 71-17-1163Phsyemvg [Mass/Vol]383.1 ng/dG37-394.8[facility] CenterFolate [Mass/volume] in Serum or PlasmaOrdered By: Megan Epps on 31-37-9652Gpbmnk [Mass/Vol]ng/mL>5.9[facility] CenterComment on above:Folate reference range: >5.9 ng/ml The WHO technical consultation on folate and vitamin b12 deficiencies has determined that folate concentrations less than 4 ng/ml are considered deficient.Globulin Calc (S) [Mass/Vol]Ordered By: Megan Epps on 33-04-2014Micnndex (S) [Mass/Vol]2.6 g/dLUniversity Hospitals Parma Medical CenterHematocrit Auto (Bld) [Volume fraction]Ordered By: Megan Epps on 12-36-7078Xgxntxagal (Bld) [Volume fraction]38.4 %34.0-46.4FSelect Medical Specialty Hospital - Boardman, IncIron [Mass/volume] in Serum or PlasmaOrdered By: Megan Epps on 41-50-8370Ennl [Mass/Vol]41 ug/aZ68-156HisibqvzlUniversity Hospitals Parma Medical CenterIron binding capacity [Mass/volume] in Serum or PlasmaOrdered By: Megan Epps on 92-73-3052Nzmi binding capacity [Mass/Vol]339 ug/jA104-445BqfrwgookUniversity Hospitals Parma Medical CenterIron saturation [Mass Fraction] in Serum or PlasmaOrdered By: Megan Epps on 49-43-6512Ckhn saturation [Mass fraction]12.0 %20-50[facility] CenterLaboratory - Chemistry and Chemistry - challengeOrdered By: Megan Supriya on 12-80-9101Ofqksweix (Vitamin B12) [Mass/Vol]459 pg/mL 180-914[facility] CenterLaboratory - Hematology and Cell counts Ordered By: Megan Epps on 50-77-4148Iuismtrlw RBC/100 WBC (Bld) [Ratio]0.0 % 0-0.5FSelect Medical Specialty Hospital - Boardman, IncLymphocytes Auto (Bld) [#/Vol]Ordered By: Megan Epps on 33-28-6855Awlbrpjrdtt (Bld) [#/Vol]2.1 10*3/uL1.00-4.8[facility] CenterLymphocytes/100 WBC Auto (Bld)Ordered By: Megan Epps on 24-01-2174Gcdtmofgida/100 WBC (Bld)21.7 %.[facility] MCH Auto (RBC) [Entitic mass]Ordered By: Megan Epps on 99-91-9478KPD (RBC) [Entitic mass]29.1 pg24.7-34.3FSelect Medical Specialty Hospital - Boardman, IncMCHC Auto (RBC) [Mass/Vol]Ordered By: Megan Epps on 68-77-5283UGDE (RBC) [Mass/Vol]33.3 g/dL 32.0-35.0[facility] CenterMCV Auto (RBC) [Entitic vol]Ordered By: Megan Epps on 79-68-5536BKB (RBC) [Entitic vol]87.3 kQ78-580VobpkmlncUniversity Hospitals Parma Medical CenterMonocytes Auto (Bld) [#/Vol]Ordered By: Megan Epps on 41-22-5300Ludgrjhfa (Bld) [#/Vol]0.7 10*3/uL0.0-0.8[facility] CenterMonocytes/100 WBC Auto (Bld)Ordered By: Megan Epps on 04-09-2022 Monocytes/100 WBC (Bld)7.2 %.[facility] CenterNeutrophils Auto (Bld) [#/Vol]Ordered By: Megan Epps on 62-45-3801Kdemvkhjkzs (Bld) [#/Vol]6.2 10*3/uL1.8-7.7FSelect Medical Specialty Hospital - Boardman, IncNeutrophils/100 WBC Auto (Bld) Ordered By: Megan Epps on 31-43-1333Mkzsfxtbrmd/100 WBC (Bld)64.8 %.[facility] CenterNo Panel InformationOrdered By: Megan Epps on 61-59-3539Ilrmhihcx GFR ()> 60 mL/MinUniversity Hospitals Parma Medical CenterComment on above:GFR estimated reference range: According to KDOQI guidelines, <60 ml/min/1.73m2 is sufficient todiagnose a patient with chronic kidney disease.Pharmacy Creatinine Clearance (Chem65.00[facility] CenterPlatelet mean volume Auto (Bld) [Entitic vol]Ordered By: Megan Epps on 35-69-4131Vahxaahz mean volume (Bld) [Entitic vol]8.4 fL6.3-10.7 [facility] CenterPlatelets Auto (Bld) [#/Vol]Ordered By: Megan Epps on 43-92-4907Aabfpzrbo (Bld) [#/Vol]249 10*3/oK151-313CvyqqyrbsUniversity Hospitals Parma Medical CenterProtein [Mass/volume] in Serum or PlasmaOrdered By: Megan Epps on 97-96-3383Qlklcqh [Mass/Vol]6.2 g/dL6.1-7.9[facility] CenterRBC Auto (Bld) [#/Vol]Ordered By: Megan Epps on 95-91-9364KGK (Bld) [#/Vol]4.40 10*6/uL3.60-5.00[facility] Medical Centererum or plasma alanine aminotransferase measurement without P-5'-P (enzymatic activi Ordered By: Megan Epps on 29-23-0575MTO No additional P-5'-P [Catalytic activity/Vol]21 U/T61-99PajhosbmoAshtabula County Medical Centererum or plasma albumin/globulin mass ratioOrdered By: Megan Epps on 04-09-2022 Albumin/Globulin [Mass ratio]1.4 {ratio}[facility] Centererum or plasma alkaline phosphatase measurement (enzymatic activity/volume)Ordered By: Megan Supriya on 98-43-7516INQ [Catalytic activity/Vol]62 U/X52-24YvgcqneeaAshtabula County Medical Centererum or plasma aspartate aminotransferase measurement (enzymatic activity/volume)Ordered By: Megan Supriya on 32-34-0238TWP [Catalytic activity/Vol]21 U/N57-72AqkvczhgvAshtabula County Medical Centererum or plasma calcium measurement (mass/volume)Ordered By: Megan Supriya on 28-27-9686Yoqvamm [Mass/Vol]9.2 mg/dL8.2-10.2FSelect Medical Specialty Hospital - Youngstownerum or plasma chloride measurement (moles/volume)Ordered By: Megan Supriya on 04-09-2022 Chloride [Moles/Vol]101 mmol/C63-223MzunziwffAshtabula County Medical Centererum or plasma glucose measurement (mass/volume)Ordered By: Megan Supriya on 04-09-2022 Glucose [Mass/Vol]111 mg/zC76-693FjlolrnjsUniversity Hospitals Parma Medical CenterComment on above:ADA recommended reference range Random Glucose Reference Range is dependent on time and content of last meal. Glucose of more than 200 mg/dL in a nonstressed, ambulatory subject supports the diagnosis of Diabetes Mellitus.Serum or plasma methylmalonate measurement (moles/volume)Ordered By: Megan Supriya on 24-55-7706Hddkjqtwjsvcma [Moles/Vol] 291 nmol/L0-378[facility] CenterComment on above:This test was developed and its performance characteristics determined by [facility]. It has not been cleared or approved by the Food and Drug Administration. Performed at: [address] [id number] Broadcast Engineer: Alan Christianson MD, Phone: [phone] or plasma potassium measurement (moles/volume)Ordered By: Megan Supriya on 40-35-3034Sthpouycw [Moles/Vol]3.6 mmol/L3.5-5.1FSelect Medical Specialty Hospital - Youngstownerum or plasma sodium measurement (moles/volume)Ordered By: Megan Epps on 73-07-8278Qxurdr [Moles/Vol]140 mmol/Z786-981CpucjxmlsAshtabula County Medical Centererum or plasma total bilirubin measurement (mass/volume)Ordered By: Megan Epps on 04-09-2022 Bilirubin [Mass/Vol]0.6 mg/dL0.3-1.2FSelect Medical Specialty Hospital - Youngstownerum or plasma total carbon dioxide measurement (moles/volume)Ordered By: Megan Epps on 85-52-7213OI5 [Moles/Vol]26.6 mmol/L22.0-30.0[facility] Centererum or plasma urea nitrogen measurement (mass/volume)Ordered By: Megan Harrisjuanis on 50-31-2866Prza nitrogen [Mass/Vol]23 mg/dL9-23[facility] CenterPTH INTACTon 40-99-9686CMU, Ixwvtt91 pg/uWDjgwwt06-23D[facility] Memorial HospitalComment on above:Performed By: #### PTHINT ####[facility] [address] [address]Dr. Kyree NealHEMOGRAM AND PLATELon 28-25-0124Lhqdvmrjif (Bld) [Volume fraction]39.1 %Giaayr61.0-48.0The Memorial HospitalComment on above:Performed By: #### HH #### [facility] [address] [address] [address] Kyree NealHemoglobin (Bld) [Mass/Vol]12.4 g/sAKbhuva15.0-16.0The Memorial HospitalComment on above:Performed By: #### HH #### [facility] [address] [address] [address] Kyree Marino (RBC) [Entitic mass]28.7 yvWhkhtd39.7-34.0The Memorial HospitalComment on above:Performed By: #### HH #### [facility] [address] [address] [address] Kyree Marino (RBC) [Mass/Vol]31.7 g/nJQvrwto11.9-35.2The Memorial HospitalComment on above:Performed By: #### HH #### [facility] [address] [place] [address] Dr. Kyree Marino (RBC) [Entitic vol]90.5 iKAawbyi40.0-99.0The Memorial HospitalComment on above:Performed By: #### HH #### [facility] [address] [place] [address] Dr. Kyree NealPLT242 103/fdNrewyq030-909Ieu Memorial HospitalComment on above: Performed By: #### HH #### [facility] [address] [place] [address] Dr. Kyree NealRBC4.32 106/ulNormal4.20-5.40The Memorial HospitalComment on above:Performed By: #### HH #### [facility] [address] [place] [address] Dr. Kyree NealWBC8.6 103/ulNormal4.0-11.0The Memorial HospitalComment on above: Performed By: #### HH #### [facility] [address] [place] [address] Dr. Kyree NealPHOSPHORUSon 76-56-8129Uhvvnylce [Mass/Vol]2.7 mg/dLNormal2.6-4.7 The Memorial HospitalComment on above:Performed By: #### ALISON, BMP #### [facility] [address] [place] [address] Dr. Kyree NealPROF CHEM 8 (BAS METB)on 53-40-8473Buduc gap [Moles/Vol]11.0 mmol/LNormalThe Memorial HospitalComment on above:Performed By: #### PHOS, BMP #### [facility] [address] [place] [address] Dr. Kyree NealCalcium [Mass/Vol]9.0 mg/dLNormal8.5-10.1[facility] Comment on above:Performed By: #### PHOS, BMP #### [facility] [address] [place] [address] Dr. Kyree NealChloride [Moles/Vol]104 mmol/EJmngxz67-663[facility] Comment on above:Performed By: #### PHOS, BMP #### [facility] [address] [address] [address] Kyree NealCO2 [Moles/Vol]30.6 mmol/ANnmgsd75.0-32.0[facility] Comment on above:Performed By: #### PHOS, BMP #### [facility] [address] [address] [address] Kyree NealCreatinine [Mass/Vol]1.10 mg/dLCritically high0.55-1.02[facility] HospitalComment on above:Performed By: #### PHOS, BMP #### [facility] [address] [address] [address] Adorno ChangEGFR-AF IVORIAN=60Normal>=60[facility] HospitalComment on above:Performed By: #### PHOS, BMP #### [facility] [address] [place] [address] Dr. Kyree CooperGFR-NON AF QUZEZZOV38 mL/min/1.55a6Yxhfyubaeh low>=60The Memorial HospitalComment on above:Performed By: #### PHOS, BMP #### [facility] [address] [place] [address] Dr. Kyree NealGlucose [Mass/Vol]93 mg/gQKwlcwy60-348YncCleveland Clinic [facility]ina Hospital Comment on above:Performed By: #### PHOS, BMP #### [facility] [address] [address] [address] Kyree NealPotassium [Moles/Vol]3.6 mmol/LNormal3.5-5.1[facility] Comment on above:Performed By: #### PHOS, BMP #### [facility] [address] [address] [address] Kyree NealSodium [Moles/Vol]142 mmol/FFvxsue638-158JhkCleveland Clinic Medina Hospital Comment on above:Performed By: #### PHOS, BMP #### [facility] [address] [place] [address] Dr. Kyree NealUrea nitrogen [Mass/Vol]20.0 mg/dLCritically high7.0-18.0[facility] HospitalComment on above:Performed By: #### PHOS, BMP #### [facility] [address] [place] [address] Dr. Kyree NealUrea nitrogen/Creatinine [Mass ratio]18.2 mg/mgUC West Chester HospitalComment on above:Performed By: #### PHOS, BMP #### [facility] [address] [place] [address] Dr. Kyree NealVITAMIN D 25 OHon 76-41-5269HRV D 25-OH45.4 ng/mLNormalCleveland Clinic Medina HospitalComment on above:Performed By: #### SEDR #### [facility] [address] [place] [address] Dr. Kyree FrancoT D RANGESSEE BELOWUC West Chester HospitalComment on above: Result Comment: <20 ng/mL Vit D deficient 20 - <30 ng/mL Vit D insufficient 30 - 100 ng/mL Vit D sufficient >100 ng/mL Potential ToxicityPerformed By: #### SEDR #### [facility] [address] [place] [address] Dr. Kyree NealA1C HEMOGLOBINon 22-94-8584TcT3q (Bld) [Mass fraction]6.1 %[facility] Credii Other HbA1c (Bld) [Mass fraction]on 54-84-8683T8I HEMOGLOBIN [facility] [employer] Other Office Visit (Cardiology)on 92-52-6013Huunyq-up visit Diagnoses/Problems Assessed Chronic right-sided congestive heart [...] Allergy; Hives; It (more content not included)...NormalUH SgxkthgqskV2S HEMOGLOBINon 44-93-0576KpR5t (Bld) [Mass fraction]5.9 %[employer] Other HbA1c (Bld) [Mass fraction]on 94-68-8369F2R HEMOGLOBIN [employer] Other Office Visit (Cardiology)on 72-08-7306Wyddsf-up visit Diagnoses/Problems Assessed Hypotension (458.9) (I95.9) quiescent on midodrine Edema (782.3) (R60.9) For the most part seems chronic No offending medications Intolerant to compression stockings Diet-controlled diabetes mellitus (250.00) (E11.9) CKD (chronic kidney disease), stage III (585.3) (N18.30) Follows routinely [facility] Nephrology - manage diuretic Morbid [...] tiZANidine HCl - (more content not included)...NormalUH KvbxyvquqfX0C HEMOGLOBIN on 15-73-0171DxI6q (Bld) [Mass fraction]6.0 %[employer] Other HbA1c (Bld) [Mass fraction]on 01-25-5145K3J HEMOGLOBIN [employer] Other a1c HEMOGLOBINon 81-49-8275RfK6b (Bld) [Mass fraction] 6.0 %[employer] Other HbA1c (Bld) [Mass fraction]on 97-23-7253G3E HEMOGLOBIN [employer] Other MRI L-Ext Joint w/o Contrast RTon 58-05-3329TE Lower extremity joint - right WO contrastEXAMINATION [...] MD 08/03/2018 14:12Transcribed by: BARRON 08/03/2018 14:10Technologist: [facility] HospitalCNOVon 86-19-2463EVHJVeunxz Visit (JAMAL) --------RENUKA PADRON ([id number]) 1955 FDate Time Provider Department05/27/18 12:30 PM ITALO ANN During your visit today, we recorded the following information about you: Pulse Respiration Blood pressure Weight 64/minute 16/minute 143/68 120.2 kg Height 1.6 Cece Ann MD 05/27/2018 1:19 PM [facility] InstituteRobzuni [facility] and [facility] Dodd Department of CardiovascularMedicineOUTPATIENT VISIT DATE 05/27/18OUTPATIENT VISIT TYPEESTABLISHEDPRIMARY CARE PHYSICIAN:[place] [address]Dpbfd: [phone]: [phone] COMPLAINT:Patient presents with:Follow UpHISTORY OF PRESENT ILLNESS:Renuka [...] under the care of Dr. Schilling of [facility]. Danika had multiple procedures performed which [...] year. She does statethat she was taking aphs-jbx-snnaxgh diet pills until recently. They were notworking. The patient has chronic complaints of dyspnea and dyspnea onexertion. She has been treated with lisinopril for her blood pressure. TheLasix was used to try to decrease her edema but was not successful. Thepatient and her son seem frustrated with the [facility]. By my review [...] She may sit in her chair for eruzlmz33-42 hours every day. She states that it's [...] - a 2-D echocardiogram performed at the [facility] normal left ventricular systolic function with an ejection fraction of60%. There was no significant valvular disease identified. There was nocomment on diastolic function.02/24/2017 - a 2-D echocardiogram performed at the [facility] low normal to mildly reduced left ventricular systolic function withan ejection fraction of 45-50%. There was minimal concentric left ventricularhypertrophypresent. There was evidence of grade 1 diastolic dysfunction.There was mild mitral regurgitation. No estimate a right ventricular systolicpressure was possible on this study.Stress Evaluations:02/26/2016 - a Lexiscan nuclear stress evaluation at the [facility] a left ventricular ejection fraction of 50% with abnormal septal wallmotion. There was a small defect involving the inferior oh apical wall whichwas fixed. This was felt to likely represent artifact. There was no otherevidence of Lexiscan stress-induced ischemia.02/24/2017 - [facility] systolic function with an ejectionfraction of 48%. There was a moderate sized anterior septal defect which waspartially reversible noted. This was read as suggestive of possiblestress-induced ischemia.Cardiac Catheterizations:07/16/2004- [facility]. There was moderately decreased leftventricular systolic function noted with an ejection fractionof 30%.Moderately elevated right heart pressures and a normal cardiac index werenoted. The patient was continued on Demadex, Diovan, around oh lactone, Coreg3.125 mg twice a day.06/12/2005 - a right and left heart catheterization was performed at [facility] revealing nonobstructive coronary artery disease,left ventricular ejection fraction of 50%, moderate pulmonary hypertension,severely elevated left ventricular end-diastolic pressure, normal cardiacoutput and normal cardiac index. The patient was started on Lasix 40 mg twicea day.02/14/2008 - a right and left heart catheterization was performed at [facility] revealing mild 3 vessel coronary arterydisease, mildly reduced left ventricular systolic function (no ejectionfraction noted on the report), mild mitral regurgitation, mildly elevated leftventricular end-diastolic pressure, mild pulmonary hypertension and a normalcardiac index. No changes were made to the medical regimen.02/28/2013 - a right and left heart catheterization performed at [facility] reveals mild 3 vessel coronary artery disease, mild pulmonaryhypertension, preserved cardiac index and no evidence of cardiac shunt. Thisstudy was performed due to an abnormal stress test and a suspected patentforamen ovale versus ASD on echocardiogram. Medical therapy was recommendedbut not detailed in the report.03/05/2017 - a right and left heart catheterization was performed at [facility] revealing nonobstru ctive coronary artery disease, mildlyreduced [...] provided to the requesting physician by [facility] or to the requesting physician via U.S. Mail.This document was generated utilizing [employer] dictation. I have reviewed andverified that the contents of the document are accurate with the exception ofminor grammatical, spelling and punctuation errors.CONTACT INFORMATION:Thank you for allowing us to participate in the care of this very pleasantpatient. Please free to contact us if we can be of any further assistance.Italo Ann MD, [facility] and Mechelle DoddMdpartment of Cardiovascular MedicinePromedica Toledo Hospitalrt and Vascular Institute[address] [address]Telptl: [phone] Referring Provider: PETER SOSA [[id number]]Allergies As of Date: 05/27/2018 Noted Allergy ReactionLATEX [...] FOR* Status:Closed by LUC ANN MD on 05/27/18[facility] TroyPROESSon 14-87-9924Qvxgffy mass concHNO ID: [id number]: Italo Valladares HersheyService: (none)Author Type: PhysicianType: Progress N otesFiled: 05/27/2018 1:19 PMNote Text:Heart and Vascular InstituteJane Todd [facility] Mechelle Mariscal Department of Cardiovascular MedicineOUTPATIENT VISIT DATE 05/27/18OUTPATIENT VISIT TYPEESTABLISHEDPRIMARY CARE PHYSICIAN:Peter Sosa, DO[address] [place] [place] [address]Lvuzq: [phone]: [phone] COMPLAINT:Patient presents with:Follow UpHISTORY OF [...] evaluated and under the careof Dr. Schilling [facility]. She has had multiple procedures performed which [...] this year. She doesstate that shewas taking fyhy-yob-krrmcph diet pills until recently. They were notworking. [...] review of the testing it seems theprevious motion study analyst was going by the guidelines with continuedreasonable [...] artery disease)- CHF (congestive heart failure) ([facility])- DM (diabetes mellitus) ([facility])- Fibromyalgia- GERD (gastroesophageal reflux disease)- HTN (hypertension)- OA (osteoarthritis) of knee- JEREMY (obstructive sleep apnea)- Pulmonary HTN ([facility])- Restrictive lung disease-Vitamin D deficiencyPAST SURGICAL HISTORYProcedure [...] - [facility] function with an ejectionfraction of 60%. There was no sign ificant valvular disease identified.There was no comment on diastolic function.02/24/2017 - [facility] normal to mildly reduced left ventricular systolic functionwith an ejection fraction of 45-50%. There was minimal concentric leftventricular hypertrophy present. There was evidence of grade 1 diastolicdysfunction. There was mild mitral regurgitation. No estimate a rightventricular systolic pressure was possible on this study.Stress Debby luations:02/26/2016 - a Lexiscan nuclear stress evaluation at the [facility] revealed a left ventricular ejection fraction of 50% with abnormalseptal wall motion. There was a small defect involving the inferior ohapical wall which was fixed. This was felt to likely represent artifact.There was no other evidence of Lexiscan stress-induced ischemia.02/24/2017 - a Lexiscan nuclear stress evaluation at the [facility] revealed mildly diminished left ventricular systolic function withan ejection fraction of 48%. There was a moderate sized anterior septaldefect which was partially reversible noted. This was read as suggestiveof possible stress-induced ischemia.Cardiac Catheterizations:07/16/2004 - a cardiac catheterization performed at [facility] revealed normalcoronary arteries. There was moderately decreasedleft ventricular systolic function noted with an ejection fraction of 30%. Moderately elevated right heart pressures and a normal cardiac index werenoted. The patient was continued on Demadex, Diovan, around oh lactone,Coreg 3.125 mg twice a day.06/12/2005 - a right and left heart catheterization was performed at [facility] revealing nonobstructive coronary arterydisease, left ventricular ejection fraction of 50%, moderate pulmo naryhypertension, severely elevated left ventricular end-diastolic pressure,normal cardiac output and normal cardiac index. The patient was startedon Lasix 40 mg twice a day.02/14/2008 - a right and left heart catheterization was performed at [facility] revealing mild 3 vessel coronaryartery disease, mildly reduced left ventricular systolic function (noejection fraction noted on the report), mild mitral regurgitation, mildlyelevated left ventricular end-diastolic pressure, mild pulmonaryhypertension and a normal cardiac index. No changes were made to themedical regimen.02/28/2013 - a right and left heart catheterization performed at [facility] reveals mild 3 vessel coronary artery disease, mildpulmonary hypertension, preserved cardiac index and no evidence of cardiacshunt. This study was performed due to an abnormal stress test and asuspected patent foramen ovale versus ASD on echocardiogram. Medicaltherapy was recommended but not detailed in the report.03/05/2017 - a right and left heart catheterization was performed at [facility] revealing nonobstructive coronary artery disease,mildly reduced [...] pressure higher.Blood pressure better today.5. Pulmonary HTN ([facility] [facility]) - ICD9: 416.8, ICD10: I27.2, diagnosed by [...] Class III, BMI 40-49.9 (morbid obesity) ([facility]) - ICD9: 278.01,ICD10: E66.0111. Preoperative cardiovascular evaluation [...] provided to the requesting physician by way [facility] or to the requesting physician via U.S. Mail.This document was generated utilizing Basic6. I have reviewedand verified that the contents of the document are accurate with theexception of minor grammatical, spelling and punctuation errors.CONTACT INFORMATION:Thank you for allowing us to participate in the care of this very pleasantpatient. Please free to contact us if we can be of any furtherassistance.Italo Ann MD, [facility] and Mechelle DoddCapital Medical Centerment of Cardiovascular MedicinePromedica Toledo Hospitalrt and Vascular Institute[address] [address]Rqujzz: [phone] [facility] TroyCNOVon [id number] Visit (CARDERIC) --------RENUKA PADRON ([id number]) 1955 FDate Time Provider Department04/08/18 12:30 PM ITALO ANN During your visit today, we recorded the following information about you: Pulse Respiration Blood pressure Weight 75/minute 18/minute 163/70 117 kg Height 1.6 Cece Ann MD 04/08/2018 12:59 PM [facility] and [facility] and Mechelle Dodd Department of Cardiovascular MedicineOUTPATIENT VISIT DATE 04/08/18OUTPATIENT VISIT TYPEESTABLISHEDPRIMARY CARE PHYSICIAN:Peter Sosa DO[address] [place] [address]Tckwv: [phone]: [phone] COMPLAINT:Patient presents with:Follow UpHISTORY OF PRESENT ILLNESS:Renuka [...] evaluated and under the care of Dr. Schililng [facility]. Danika had multiple procedures performed which are [...] this year. She does statethat she wastaking swwx-iup-vejhnfz diet pills until recently. They were notworking. The patient has chronic complaints of dyspnea and dyspnea onexertion. She has been treated with lisinopril for her blood pressure. TheLasix was used to try to decrease her edema but was not successful. Thepatient and her son seem frustrated with [facility]. By my review [...] She may sit in her chair for [id number] hours ev dave day. She states that [...] - [facility] with an ejection fraction of60%. There was no significant valvular disease identified. There was nocomment on diastolic function.02/24/2017 - [facility] to mildly reduced left ventricular systolic function withan ejection fraction of 45-50%. There was mi nimal concentric left ventricularhypertrophy present. There was evidence of grade 1 diastolic dysfunction.There was mild mitral regurgitation. No estimate a right ventricular systolicpressure was possible on this study.Stress Evaluations:02/26/2016 - a Lexiscan nuclear stress [facility] ventricular ejection fraction of 50% with abnormal septal wallmotion. There was a small defect involving the inferior oh apical wall whichwas fixed. This was felt to likely represent artifact. There was no otherevidence of Lexiscan stress-induced ischemia.02/24/2017 -a Lexiscan nuclear stress [facility] mildly diminished left ventricular systolic function with an ejectionfraction of 48%. There was a moderate sized anterior septal defect which waspartially reversible noted. This was read as suggestive of possiblestress-inducedischemia.Cardiac Catheterizations:07/16/2004 - [facility]. There was moderately decreased leftventricular systolic function noted with an ejection fraction of 30%.Moderately elevated right heart pressures and anormal cardiac index werenoted. The patient was continued on Demadex, Diovan, around oh lactone, Cor eg3.125 mg twice a day.06/12/2005 - a right and left heart catheterization was performed at [facility] revealing nonobstructive coronary artery disease,left ventricular ejection fraction of 50%, moderate pulmonary hypertension,severely elevated left ventricular end-diastolic pressure, normal cardiacoutput and normal cardiac index. The patient was started on Lasix 40 mg twicea day.02/14/2008 - a right and left heart catheterization was performed at [facility] revealing mild 3 vessel coronary arterydisease, mildly reduced left ventricular systolic function (no ejectionfraction noted on the report), mild mitral regurgitation, mildly elevated leftventricular end-diastolic pressure, mild pulmonary hypertension and a normalcardiac index. No changeswere made to the medical regimen.02/28/2013 - a right and left heart catheterization performed at [facility] reveals mild 3 vessel coronary artery disease, mild pulmonaryhypertension, preserved cardiac index and no evidence of cardiac shunt. Thisstudy was performed due to an abnormal stresstest and a suspected patentforamen ovale versus ASD on echocardiogram. Medical therapy was recommendedbut not detailed in the report.03/05/2017 - a right and left heart catheterization was performed at [facility] revealing nonobstructive coronary artery disease, mildlyreduced [...] help her symptoms. I have suggested the Aigou diet. I havealso discussed with her a [...] via U.S. Mail.This document was generated utilizing EBOOKAPLACE dictation. I have reviewed andverified that thecontents of the document are accurate with the exception ofminor grammatical, spelling and punctuation errors.CONTACT INFORMATION:Thank you for allowing us to participate in the care of this very pleasantpatient. Please free to contact us if we can be of any further assistance.Italo Ann MD, FACCRjane todd crawford memorial hospitalt and Mechelle Manciazuni comprehensive health centerment of Cardiovascular MedicinePromedica Toledo Hospitalrt and Vascular InstituteLisa V[address] [place], [place] [address]Vvybwm: [phone] Referring Provider: PETER SOSA [[id number]]Allergies As of Date: 04/08/2018 Noted Allergy ReactionLATEX [...] 3 BASIC METABOLIC PNL [SQBMP] Order #: [id number] FUTUREPrescriptions as of 04/08/2018Sig: LISINOPRIL 40 MG [...] Status:Closed by LUC ANN MD on 04/08/18Normal [facility] HospitalPROGRESSon [id number] mass concHNO ID: [id number]: Italo FultonyService: (none)Author Type: PhysicianType: Progress NotesFiled: 04/08/2018 12:59 PMNote Text:Heart and Vascular InstituteKotlik and [facility] Department of Cardiovascular MedicineOUTPATIENT VISIT DATE 04/08/18OUTPATIENT VISIT TYPEESTABLISHEDPRDUKE UNIVERSITY HOSPITALRY CARE PHYSICIAN:MISAEL Garcia[address] [place] [address]Yqzsi: [phone]: [phone] COMPLAINT:Patient presents with:Follow UpHISTORY OF PRESENT ILLNESS:Renuka [...] and under the care of Dr. Schilling [facility]. She has had multiple procedures performed which [...] year. She does state that shewas taking anfc-whs-hxmiwrg diet pills until recently. They were notworking. [...] review of the testing it seems theprevious motion study analyst was going by the guidelines with continuedreasonable [...] - a [facility] systolic function with an ejectionfraction of 60%. There was no significant valvular disease identified.There was no comment on diastolic function.02/24/2017 - [facility] normal to mildly reduced left ventricular systolic functionwith an ejection fraction of 45-50%. There was minimal concentric leftventricular hypertrophy present. There was evidence of grade 1 diastolicdysfunction. There was mild mitral regurgitation. No estimate a rightventricular systolicpressure was possible on this study.Stress Evaluations:02/26/2016 - a Lexiscan nuclear stress evaluation at the [facility] revealed a left ventricular ejection fraction of 50% with abnormalse ptal wall motion. There was a small defect involving the inferior ohapical wall which was fixed. This was felt to likely represent artifact.There was no other evidence of Lexiscan stress-induced ischemia.02/24/2017 - a Lexiscan nuclear stress evaluation at the [facility] revealed mildly diminished left ventricular systolic function withan ejection fraction of 48%. There was a moderate sized anterior septaldefect which was partially reversible noted. This was read as suggestiveof possible stress-induced ischemia.Cardiac Catheterizations:07/16/2004 - [facility] revealed normal coronary arteries. There was moderately decreasedleftventricular systolic function noted with an ejection fraction of 30%. Moderately elevated right heart pressures and a normal cardiac index werenoted. The patient was continued on Demadex, Diovan, around oh lactone,Coreg 3.125 mg twice a day.06/12/2005 - a right and left heart catheterization was performed at [facility] revealing nonobstructive coronary arterydisease, left ventricular ejection fraction of 50%, moderate pulmonaryhypertension, severely elevated left ventricular end-diastolic pressure,normal cardiac output and normal cardiac index. The patient was startedon Lasix 40 mg twice a day.02/14/2008 - a right and left heart catheterization was performed at [facility] revealing mild 3 vessel coronaryartery disease, mildly reduced left ventricular systolic function (noejection fraction noted on the report), mild mitral regurgitation, mildlyelevated left ventricular end-diastolic pressure, mild pulmonaryhypertension and a normal cardiacindex. No changes were made to themedical regimen.02/28/2013 - a right and left heart catheterization performed at [facility] reveals mild 3 vessel coronary artery disease, mildpulmonary hypertension, preserved cardiac index and no evidence of cardiacshunt. This study was performed due to an abnormal stress test and asuspected patent foramen ovale versus ASD on echocardiogram. Medicaltherapy was recommended but not detailed in the report.03/05/2017 - a right and left heart catheterization was performed at [facility] revealing nonobstructive coronary artery disease,mildly reduced [...] help her symptoms. I have suggested the Aigou diet. Keira also discussed with her a [...] via U.S. Mail.This document was generated utilizing EBOOKAPLACE dictation. I have reviewedand verified that the contents of the document are accurate with theexception of minor grammatical, spelling and punctuation errors.CONTACT INFORMATION:Thank you for allowing us to participate in the care of this very pleasantpatient. Please free to contact us if we can be of any furtherassistance.Italo Ann MD, [facility] and Mechelle Manciazuni comprehensive health centerment of Cardiovascular MedicinePromedica Toledo Hospitalrt and Vascular Institute[address] [address]Dzlsrx: [phone] NoOhioHealth [facility] [id number] Visit (JAMAL) --------RENUKA PADRON ([id number]) 1955 FDate Time Provider Department01/04/18 12:30 PM ITALO ANN During your visit today, we recorded the following information about you: Pulse Respiration Blood pressure Weight 57/minute 18/minute 165/72 117.9 kg Height 1.6 Cece Ann MD 01/04/2018 12:56 PM [facility] and Mechelle Dodd Department of Cardiovascular MedicineOUTPATIENT VISIT DATE 01/04/18OUTPATIENT VISIT TYPEESTABLISHEDPRIMARY CARE PHYSICIAN:Peter Sosa DO[address] [place] [address]Qxojh: [phone]: [phone] COMPLAINT:Patient presents with:Follow UpHISTORY OF PRESENT ILLNESS:Renuka [...] under the care of Dr. [facility]illing [facility]. Shehas had multiple procedures performed which [...] year. She does statethat she was taking wmdr-ljt-ihpebts diet pills until recently. They were notworking. [...] She may sit in her chair for -40 hoursevery day. She states that it's because [...] CAD (coronary arterydisease)- CHF (congestive heart failure) ([facility])- DM (diabetes mellitus) ([facility])- Fibromyalgia- GERD (gastroesophageal reflux disease)- HTN (hypertension)- [...] 117.9 kg (260lb) SpO2 100% BMI 46.06 kg/o6Colohem: Well appearing, in no acute distress.Eyes: Conjunctiva [...] - a 2-D echocardiogram performed at the [facility] normal left ventricular systolic function with an ejection fraction of60%. There was no significant valvular disease identified. There was nocomment on diastolic function.02/24/2017 - a 2-D echocardiogram performed at the [facility] low normal to mildly reduced left ventricular systolic function withan ejection fraction of 45-50%. There was minimal concentric left ventricularhypertrophy present. There was evidence of grade 1 diastolic dysfunction.There was mild mitral regurgitation. No estimate a right ventricular systolicpressure was possible on this study.Stress Evaluations:02/26/2016 - [facility] Lex[facility] ejection fraction of 50% with abnormal septal wallmotion. There was a small defect involving the inferior oh apical wall whichwas fixed. This was felt to likely represent artifact. There was no otherevidence of Lexiscan stress-induced ischemia.02/24/2017 - a Lexiscan [facility] diminished left ventricular systolic function with an ejectionfraction of 48%. There was a moderate sized anterior septal defect which waspartially reversible noted. This was read as suggestive of possiblestress-induced ischemia.Cardiac Catheterizations:07/16/2004 -[facility]. There was moderately decreased leftventricular systolic function noted with an ejection fraction of 30%.Moderately elevated right heart pressures and a normal cardiac index werenoted. The patient was continued on Demadex, Diovan, around oh lactone, Coreg3.125 mg twice a day.06/12/2005 - a right and left heart catheterization was performed at [facility] revealing nonobstructivecoronary artery disease,left ventricular ejection fraction of 50%, moderate pulmonary hypertension,severely elevated left ventricular end-diastolic pressure, normal cardiacoutput and normal cardiac in dex. The patient was started on Lasix 40 mg twicea day.02/14/2008 - a right and left heart catheterization was performed at [facility] revealing mild 3 vessel coronary arterydisease, mildly reduced left ventricular systolic function (no ejectionfraction noted on the report), mild mitral regurgitation, mildly elevated leftventricular end-diastolic pressure, mild pulmonary hypertension and a normalcardiac index. No changes were made to the medical regimen.02/28/2013 - a right and left heart catheterization performed at [facility] reveals mild 3 vessel coronary artery disease, mild pulmonaryhypertension, preserved cardiac index and no evidence of cardiac shunt. Thisstudy was performed due to an abnormal stress test and a suspected patentforamen ovale versus ASD on echocardiogram. Medical therapy was recommendedbut not detailed in the report.03/05/2017 - a right and left heart catheterization was performed at [facility] revealing nonobstruct junior coronary artery disease, mildlyreduced [...] therapy, gastroesophageal reflux disease and obesity.No significant private branch exchange repairer the past 6 months. Patient is very [...] help her symptoms. I have suggested the Aigou diet. I havealso discussed with her a [...] provided to the requesting physician by way [facility] or t o the requesting physician via U.S. Mail.This document was generated utilizing EBOOKAPLACE dictation. I have reviewed andverified that the contents of the document are accurate with the exception ofminor grammatical, spelling and punctuation errors.CONTACT INFORMATION:Thank you for allowing us to participate in the care of this very pleasantpatient. Please free to contact us if we can be of any further assistance.Italo Ann MD, [facility] and Mechelle Sage of Cardiovascular MedicineHeart and Vascular InstituteToledo Hospital[address], [place] [address]Hgrhmj: [phone] Referring Provider: PETER SOSA [[id number]]Allergies As of Date: 01/04/2018 Noted Allergy ReactionLATEX [...] Take by mouth. Disc: Erroneous entryEncounter Number: [id number] Status:Closed by LUC ANN MD on 01/04/18[facility] Centeron [id number] mass concHNO ID: [id number]: Italo FultonyService: (none)Author Type: PhysicianType: Progress NotesFiled: 01/04/2018 12:56 PMNote Text:Heart and Vascular InstituteRobert and Mechelle Dodd Depart ment of Cardiovascular MedicineOUTPATIENT VISIT DATE 01/04/18OUTPATIENT VISIT TYPEESTABLISHEDPRIMARY CARE PHYSICIAN:Peter Sosa DO[address] [place] [address]Ftdze: [phone]: [phone] COMPLAINT:Patient presents with:Follow UpHISTORY OF PRESENT ILLNESS:Renuak Padron is a 61 year old female [...] and under the care of Dr. Schilling [facility]. She has had multiple procedures performed which [...] year. She does state that shewas taking fgyx-ymk-kxxxmjn diet pills until recently. They were notworking. [...] review of the testing it seems theprevious motion study analyst was going by the guidelines with continuedreasonable [...] 117.9 kg (260lb) SpO2 100% BMI 46.06 kg/j7Xzgtryk: Well appearing, in no acute distress.Eyes: Conjunctiva [...] - a [facility] systolic function with an ejectionfraction of 60%. There was no significant valvular disease identified.There was no comment on diastolic function.02/24/2017 - a 2-D echocardiogram performed at the [facility] low normal to mildly reduced left ventricular systolic functionwith an ejection fraction of 45-50%. There was minimal concentric leftventricular hypertrophy present. There was evidence of grade 1 diastolicdysfunction. There was mild mitral regurgitation. No estimate a rightventricular systolic pressure was possible on this study.Stress Evaluations:02/26/2016 - a Lexiscan nuclear stress evaluation at the [facility] revealed a left ventricular ejection fraction of 50% with abnormalseptal wall motion. There was a small defect involving the inferior ohapical wall which was fixed. This was felt to likely represent artifact.There was no other evidence of Lexiscan stress-induced ischemia.02/24/2017 - a Lexiscan nuclear stress evaluation at the [facility] revealed mildly diminished left ventricular systolic function withan ejection fraction of 48%. There was a moderate sized anterior septaldefect which was partially reversible noted. This was read as suggestiveof possible stress-induced ischemia.Cardiac Catheterizations:07/16/2004 - a cardiac catheterization performed at the [facility] revealed normal coronaryarteries. There was moderately decreasedleft ventricular systolic function noted with an ejection fraction of 30%. Moderately elevated right heart pressures and a normal cardiac index werenoted. The patient was continued on Demadex, Diovan, around oh lactone,Coreg 3.125 mg twice a day.06/12/2005 - a right and left heart catheterization was performed at [facility] revealing nonobstructive coronary arterydisease, left ventricular ejection fraction of 50%, moderate pulmonaryhypertension, severely elevated left ventricular end-diastolic pressure,normal cardiac output and normalcardiac index. The patient was startedon Lasix 40 mg twice a day.02/14/2008 - a right and left heart catheterization was performed at [facility] revealing mild 3 vessel coronaryartery disease, mildly reduced left ventricular systolic function (noejection fraction noted on the report), mild mitral regurgitation, mildlyelevated left ventricular end-diastolic pressure, mild pulmonaryhypertension and a normal cardiac index. No changes were made to [facility] regimen.02/28/2013 - a right and left heart catheterization performed at [facility] reveals mild 3 vessel coronary artery disease, mildpulmonary hypertension, preserved cardiac index and no evidence of car diacshunt. This study was performed due to an abnormal stress test and asuspected patent foramen ovale versus ASD on echocardiogram. Medicaltherapy was recommended but not detailed in the report.03/05/2017 - a right and left heart catheterization was performed at [facility] revealing no nobstructive coronary artery disease,mildly reduced [...] therapy, gastroesophagealreflux disease and obesity. No significant private branch exchange repairer the past 6 months. Patient is very [...] I10, blood pressuremoderately elevated today.5. Pulmonary HTN ([facility]) - ICD9: 416.8, ICD10: I27.2, diagnosed by [...] help her symptoms. I have suggested the Aigou diet. Gavin discussed with her a pre-diabetic [...] provided to the requesting physician by way [facility] or to the requesting physician via U.S. Mail.This document was generated utilizing Immyation. I have reviewedand verified that the contents of the document are accurate with theexception of minor grammatical, spelling and punctuation errors.CONTACT INFORMATION:Thank you for allowing us to participate in the care of this very pleasantpatient. Please free to contact us if we can be of any f urtherassistance.Italo Ann MD, FACCRobert and Mechelle DoddDepartment of CardiovascularMedicineHeart and Vascular Institute[address] [address]Fvsadn: [phone] NormalCBlanchard Valley Health System-Reactive Proteinon 12-21-2017 CRP mass conc1.1 mg/dLHigh<1.0[facility] HospitalComment on above: Performed By: #### 1988-5 ####ALRIVERGIDEON[address]CB with Differentialon [id number] Auto #/vol (Bld)0.10 thou/mcLNormal 0.00-0.20[facility]al HospitalComment on above:Performed By: #### 21389-5 ####[address]#### [address]-9 ####[facility] HEALTH CENTERGIDEONUSA [facility]ALTH [facility], [address] [place] [address].Basophils/100 WBC Auto (Bld)0.9 %Normal 0.0-2.0[facility] Health SystemComment on above:Performed By: #### [address]-6 ####[address]#### [address]-5 ####[facility], [address] [place] [address].Eosinophils Auto #/vol (Bld)0.20 thou/mcL Normal0.00-0.70[facility] SystemComment on above:Performed By: #### 07117-7 ####[address]#### [address]-8 ####[facility], [address] [place] [address].Eosinophils/100 WBC Auto (Bld)3.1 %Normal0.0-7.0[facility] SystemComment on above:Performed By: ###Sidney [address]753-3 ####[address]#### [address]-7 ####[facility], [address] [place] [address].Erythrocyte distribution width Entitic volume (RBC)16.3 %High11.0-14.8[facility] SystemComment on above:Performed By: #### 38259-8 ####[address]#### [address]-8 ####[facility], [address] [place] [address]. Hematocrit Auto Volume Fraction (Bld)37.5 %Syesfi15.0-45.0[facility] SystemComment on above:Performed By: #### 34665-8 ####[address]#### 98562-9 ####[facility], [address] [place] [address].Hemoglobin mass conc (Bld)12.2 g/oJIzdpoq95.0-16.0[facility] SystemComment on above:Performed By: #### 61319-4 ####[address]#### 87114-9 ####[facility], [address] [place] [address].Lymphocytes Auto #/vol (Bld)1.40 thou/mcLNormal1.00-4.80[facility] HospitalComment on above:Performed By: #### 28501-2 ####[address]#### 25630-8 ####[facility], [address] [place] [address].Lymphocytes/100 WBC Auto (Bld)19.5 %Low22.0-44.0[facility] HospitalComment on above:Performed By: #### 98198-6 ####[address]#### 85474-6 ####[facility], [address] [place] [address].MCH Auto Entitic mass (RBC)25.2 YevnffdciQnu06.0-34.0 [facility] HospitalComment on above:Performed By: #### 99784-9 ####[address]#### 13266-3 ####[facility], [address] [place] [address].MCHC Auto mass conc (RBC)32.6 g/dLNormal 32.0-36.0[facility] SystemComment on above:Performed By: #### 73240-8 ####[address]#### 20380-0 ####[facility], [address] [place] [address].MCV Auto Entitic volume (RBC)77.2 fLLow 80.0-97.0[facility] SystemComment on above:Performed By: #### 75881-8 ####[address]#### 04133-5 ####[facility], [address] [place] [address].Monocytes Auto #/vol (Bld)0.50 thou/mcLNormal 0.00-0.90[facility] SystemComment on above:Performed By: #### 59683-9 ####[address]#### 21468-0 ####[facility], [address] [place] [address].Monocytes/100 WBC Auto (Bld)6.7 %Normal 0.0-12.0[facility] SystemComment on above:Performed By: #### 40567-0 ####[address]#### 88097-2 ####[facility], [address] [place] [address].Neutrophils Auto #/vol (Bld)5.00 thou/mcL Normal1.80-7.70[facility] SystemComment on above:Performed By: #### 41946-3 ####[address]#### 16398-8 ####[facility], [address] [place] [address].Neutrophils/100 WBC Auto (Bld)69.8 %Ruuowh86.0-70.0[facility] SystemComment on above:Performed By: #### 22423-4 ####[address]#### 18065-3 ####[facility], [address] [place] [address].Platelet mean volume Entitic volume (Bld)8.4 FLNormal6.2-12.1[facility] SystemComment on above:Performed By: #### 06864-8 ####[address]#### 92265-8 ####[facility], [address] [place] [address]. Platelets Auto #/vol (Bld)278 thou/opGIhrzne746-288Xl[facility] Comment on above:Performed By: #### 27521-7 ####[address]#### 61812-5 ####[facility], [address] [place] [address]. RBC Auto #/vol (Bld)4.86 million/mcLNormal3.80-5.10[facility] Comment on above:Performed By: #### 37889-0 ####[address]#### 32681-6 ####[facility], [address] [place] [address]. WBC Auto #/vol (Bld)7.2 thou/mcLNormal4.6-10.2[facility] HospitalComment on above:Performed By: #### 19956-6 ####[address]#### 17017-7 ####[facility], [address] [place] [address]. Sedimentation Rate rbcon [id number] Velocity (Bld)32 mm/hHigh0-20[facility] HospitalComment on above:Performed By: #### 14929-4 ####[address]#### 70047-1 ####[facility], [address] [place] [address].XR Knee 4+ Views RTon [id number] Knee - right 4 viewsEXAMINATION TYPE: XR Knee 4+ Views RT DATE OF EXAM : 12/21/2017 11:15 AMHISTORY: pain in the knee,COMPARISON: NONEFINDINGS: Standing AP, PA, lateral and sunrise patella view submitted of the RIGHT knee. AP imaging demonstrates postoperative changes bilaterally the knees status post total knee replacement. The RIGHT knee prostheses appear properly seated [place] bone without fracture. Relationship wit hin normal [...] MD 12/21/2017 13:26Transcribed by: BARRON 12/21/2017 13:24Technologist: JustusGalion HospitalCNProgress [facility] [id number] Visit (CARDERIC) --------RENUKA PADRON ([id number]) 1955 [facility] Time Provider Qqnqqeiocr97/3/17 1:00 PM ITALO ANN During your visit today, we recorded the following information about you: Pulse Respiration Blood pressure Weight 86/minute 18/minute 146/57 127 kg Height 1.6 Cece Ann MD 07/21/2017 1:57 PM SignedPromedica Toledo Hospitalrt and Vascular InstituteRobzuni comprehensive health center and [facility]echelle Dodd Department of Cardiovascular MedicineOUTPATIENT VISIT DATE 07/21/17OUTPATIENT VISIT TYPEESTABLISHEDPRIMARY CARE PHYSICIAN:[place] [address]Wcrnz: [phone]: [phone] COMPLAINT:Patient presents with:Leg EdemaShortness of BreathHISTORY OF [...] under the care of Dr. Schilling of [facility]. Danika had multiple procedures performed which [...] year. She does statethat she was taking mits-zda-evcqjuq diet pills until recently. They were notworking. [...] artery disease)- CHF (congestive heart failure) ([facility])- DM (diabetes me llitus) ([facility])- Fibromyalgia- GERD (gastroesophageal reflux disease)- HTN (hypertension)- [...] kg (280 lb) SpO2 96% BMI 49.6 kg/b9Kcgxweh: Well appearing, in no acute distress.Eyes: Conjunctiva [...] - a 2-D echocardiogram performed at the [facility] normal left ventricular systolic function with an ejection fraction of60%. There was no significant valvular disease identified. There was nocomment on diastolic function.02/24/2017 - a 2-D echocardiogram performed at the [facility] low normal to mildly reduced left ventricular systolic function withan ejection fraction of 45-50%. There was minimal concentric left ventricularhypertrophy present. There was evidence of grade 1 diastolic dysfunction.There was mild mitral regurgitation. No estimate a right ventricular systolicpressure was possible on this study.Stress Evaluations:02/26/2016 - a Lexiscan nuclear stress evaluation at the [facility] a left ventricular ejection fraction of 50% with abnormal septal wallmotion. There was a small defect involving the inferior oh apical wall whichwas fixed. This was felt to likely represent artifact. There was no otherevidence of Lexiscan stress-induced ischemia.02/24/2017 - a Lexiscan nuclear stress evaluation at the [facility] mildly diminished left ventricular systolic function [...] right and left heart catheterizationwas performed at [facility] revealing nonobstructive coronary artery disease,left ventricular ejection fraction of 50%, moderate pulmonary hypertension,severely elevated left ventri cular end-diastolic pressure, normal cardiacoutput and normal cardiac index. The patient was started on Lasix 40 mg twicea day.02/14/2008 - a right and left heart catheterization was performed at [facility] revealing mild 3 vessel coronary arterydisease, mildly reduced left ventricular systolic function (no ejectionfraction noted on the report), mild mitral regurgitation, mildly elevated leftventricular end-diastolic pressure, mild pulmonary hypertension and a normalcardiac index. No changes were made to the medical regimen.02/28/2013 - a right and left heart catheterization performed at [facility] reveals mild 3 vessel coronary artery disease, mild pulmon aryhypertension, preserved cardiac index and no evidence of cardiac shunt. Thisstudy was performed due to an abnormal stress test and a suspected patentforamen ovale versus ASD on echocardiogram. Medical therapy was recommendedbut not detailed in the report.03/05/2017 - a right and left heart catheterization was performed at [facility] revealing nonobstructive coronary artery disease, mildlyreduced [...] therapy, gastroesophageal reflux disease and obesity.No significant private branch exchange repairer the past 2-3 weeks.2. Edema, unspecified type [...] via U.S. Mail.This document was generated utilizing Immyation. I have reviewed andverified that the contents of the document are accurate with the exception ofminor grammatical, spelling and punctuation errors.CONTACT INFORMATION:Thank you for allowing us to participate in the care of this very pleasantpatient. Please free to contact us if we can be of any further assistance.Italo Ann MD, [facility] and Mechelle DoddMdpartment of Cardiovascular MedicinePhoenix Memorial Hospital and Vascular Institute[address] [address]Egvyeq: [phone] Referring Provider: PETER SOSA [[id number]]Allergies As of Date: 07/21/2017 Noted Allergy ReactionLATEX [...] Status:Closed by LUC ANN MD on 07/21/17Normal [facility] City HospitalPROGRESSon [id number] mass concHNO ID: [id number]: Italo FultonyService: (none)Author Type: PhysicianType: Progress NotesFiled: 07/21/2017 1:57 PMNote Text:Heart and Vascular [facility] and [facility] Department of Cardiovascular MedicineOUTPATIENT VISIT DATE 07/21/17OUTPATIENT VISIT TYPEESTABLISHEDPRDUKE UNIVERSITY HOSPITALRY CARE PHYSICIAN:[place] [address]Gglhf: [phone]: [phone] COMPLAINT:Patient presents with:Leg EdemaShortness of BreathHISTORY OF [...] and under the care of Dr. Schilling [facility]. She has had multiple procedures performed which [...] year. She does state that shewas taking tqxb-vms-osnixoy diet pills until recently. They were notworking. [...] review of the testing it seems theprevious motion study analyst was going by the kavin esqueda with [...] artery disease)- CHF (congestive heart failure) ([facility])- DM (diabetes mellitus) ([facility])- Fibromyalgia- GERD (gastroesophageal reflux disease)- HTN (hypertension)- [...] kg (280 lb) SpO2 96% BMI 49.6 kg/p0Lrsnanc: Well appearing, in no acute distress.Eyes: Conjunctiva [...] - [facility] with an ejectionfraction of 60%. There was no significant valvular disease identified.There was no comment on diastolic function.02/24/2017 - a 2-D echocardiogram performed at the [facility] low normal to mildly reduced left ventricular systolic functionwith an ejection fraction of 45-50%. There was minimal concentric leftventricular hypertrophy present. There was evidence of grade 1 diastolicdysfunction. There was mild mitral regurgitation. No estimate a right ventricular systolic pressure was possible on this study.Stress Evaluations:02/26/2016 - a Lexiscannuclear stress evaluation at the [facility] revealed a left ventricular ejection fraction of 50% with abnormalseptal wall motion. There was a small defect involving the inferior ohapical wall which was fixed. This was felt to likely represent artifact.There was no other evidence of Lexiscan stress-induced ischemia.02/24/2017 - a Lexiscan nuclear stress evaluation at the [facility] revealed mildly diminished left ventricular systolic function withan ejection fraction of 48%. There was a moderate sized anterior septaldefect which was partially reversible noted. This was read as suggestiveof possible stress-induced ischemia.Cardiac Catheterizations:07/16/2004 - a cardiac catheterization performed at the [facility] revealed normal coronary arteries. There was moderately decreasedleft ventricular systolic function noted with an ejection fraction of 30%. Moderately elevated right heart pressures and a normal cardiac index werenoted. The patient was continued onDemadex, Diovan, around oh lactone,Coreg 3.125 mg twice a day.06/12/2005 - a right and left heart catheterization was performed at [facility] revealing nonobstructive coronary arterydisease, left ventricular ejection fraction of 50%, moderate pulmonaryhypertension, severely elevated left ventricular end-diastolic pressure,normal cardiac output and normal cardiac index. The patient was startedon Lasix 40 mg twice a day.02/14/2008 - a right and left heart catheterization was performed at [facility] revealing mild 3 vessel coronaryartery disease, mildly reduced left ventricular systolic function (noejection fraction noted on the report), mild mitral regurgitation, mildlyelevated left ventricular end-diastolic pressure, mild pulmonaryhypertensionand a normal cardiac index. No changes were made to themedical regimen.02/28/2013 - a right and left heart catheterization performed at [facility] reveals mild 3 vessel coronary artery disease, mildpulmonary hypertension, preserved cardiac index and no evidence of cardiacshunt. This study was performed due to an abnormal stress test and asuspected patent foramen ovale versus ASD on echocardiogram. Medicaltherapy was recommended but not detailed in the report.03/05/2017 - a right and left heart catheterization was performed at [facility] revealing nonobstructive coronary artery disease,mildly reduced [...] diuretic therapy, gastroesophagealreflux disease and obesity.No significant private branch exchange repairer the past 2-3weeks.2. Edema, unspecified type - [...] Class III, BMI 40-49.9 (morbid obesity) ([facility]) - ICD9: 278.01,ICD10: E66.0111. Preoperative cardiovascular evaluation [...] physician viaU.S. Mail.This document was generated utilizing Milaon dictation. I have reviewedand verified that the contents of the document are accurate with theexception of minor grammatical, spelling and punctuation errors.CONTACT INFORMATION:Thank you for allowing us to participate in the care of this very pleasantpatient. Please free to contact us if we can be of any furtherassistance.Italo Ann MD, [facility] and Mechelle DoddCapital Medical Centerment of Cardiovascular MedicinePromedica Toledo Hospitalrt and Vascular Institute[address] [address]Mnyfgp: [phone] NoClermont County Hospital CNOVon [id number] Visit (CARDFT) --------ANDIRENUKA ALY ([id number]) 1955 FDate Time Provider Department06/30/17 12:30 PM ITALO ANN During your visit today, we recorded the following information about you: Pulse Respiration Blood pressure Weight 74/minute 18/minute 180/91 127 kg Height 1.6 Cece Ann MD 07/06/2017 1:12 PM [facility] and Vascular [facility] and [facility] Department of CardiovascularMedicineOUTPATIENT VISIT DATE 06/30/17OUTPATIENT VISIT TYPENEWPRIMARY CARE PHYSICIAN:Peter Sosa, DO[address] [facility] [address]U[place]oa: [phone]: [phone] COMPLAINT:Patient presents with:CARD New Patient ConsultHISTORY OF [...] under the care of Dr. Schilling of [facility]. Danika had multiple procedures performed which [...] year. She does statethat she was taking xinx-oea-kcxpuos diet pills until recently. They were notworking. [...] artery disease)- CHF (congestive heart failure) ([facility])- DM (diabetes mellitus) ([facility])- Fibromyalgia- GERD (gastroesophageal reflux disease)- HTN (hypertension)- [...] kg (280 lb) SpO2 100% BMI 49.6 kg/g7Iptazct: Well appearing, in no acute distress.Eyes: Conjunctiva [...] - a [facility] systolic function with an ejection fraction of60%. There was no significant valvular disease identified. There was nocomment on diastolic function.02/24/2017 - a [facility] normal to mildly reduced left ventricular systolic function withan ejection fraction of 45-50%. There was minimal concentric left ventricularhypertrophy present. There was evidence of grade 1 diastolic dysfunction.There was mild mitral regurgitation. No estimate a right ventricular systolicpressure was possible on this study.Stress Evaluations:02/26/2016 - a Lexiscan nuclear [facility] a left ventricular ejection fraction of 50% with abnormal septal wallmotion. There was a small defect involving the inferior oh apical wall whichwas fixed. This was felt tolikely represent artifact. There was no otherevidence of Lexiscan stress-induced ischemia.02/24/2017 - a Lexiscan [facility] diminished left ventricular systolic function with an ejectionfraction of 48%. There was a moderate sized anterior septal defect which waspartially reversible noted. This was read as suggestive of possiblestress-induced ischemia.Cardiac Catheterizations:07/16/2004 - [facility]. There was moderately decreased leftventricular systolic function noted with an ejection fraction of 30%.Moderately elevated right heart pressures and a normal cardiac index werenoted. The patient was continued on Demadex, Diovan, around oh lactone, Coreg3.125 mg twice a day.06/12/2005 - a right and left heart catheterization was performed at [facility] revealing nonobstructive coronary artery disease,left ventricular ejectionfraction of 50%, moderate pulmonary hypertension,severely elevated left ventricular end-diastolic pressure, normal cardiacoutput and normal cardiac index. The patient was started on Lasix 40 mg twicea day.02/14/2008 - a right and left heart catheterization was performed at [facility] revealing mild 3 vessel coronary arterydisease, mildly reduced left ventricular systolic function (no ejectionfraction noted on the report), mild mitral regurgitation, mildly elevated leftventricular end-diastolic pressure, mild pulmonary hypertension and a normalcardiac index. No changes were made to the medical regimen.02/28/2013 - a right and left heart catheterization performed at [facility] reveals mild 3 vessel coronary artery disease, mild pulmonaryhypertension, preserved cardiac index and no evidence of cardiac shunt. Thisstudy was performed due to an abnormal stress test and a suspected patentforamen ovale versus ASD on echocardiogram. Medical therapy was recommendedbut not detailed in the report.03/05/2017 - a right and left heart catheterization was performed at [facility] revealing nonobstructive coronary artery disease, mildlyreduced [...] via U.S. Mail.This document was generated utilizing EBOOKAPLACE dictation. I have reviewed andverified that the contents of the document are accurate with the exception ofminor grammatical, spelling and punctuation errors.CONTACT INFORMATION:Thank you for allowing us to participate in the care of this very pleasantpatient. Please free to contact us if we can be of any further marleny tance.Italo Ann MD, FACCRobert and Mechelle DoddCapital Medical Centersharron of Cardiovascular MedicinePhoenix Memorial Hospital and Vascular Institute[address] [address]Jljrlc: [phone] Referring Provider: NO PCP [[id number]]Allergies As of [...] Class III, BMI 40-49.9 (morbid obesity) ([facility]) [E66.01]Prescriptions as of 06/30/2017 Sig: ESOMEPRAZOLE MAGNESIUM [...] FOR* Status:Closed by LUC ANN MD on 07/06/17[facility] 06-30-2017 Protein mass concHNO ID: [id number]: Italo FultonyService: (none)Author Type: PhysicianType: Progress NotesFiled: 07/06/2017 1:12 PMNote Text:Heart and Vascular InstituteRobzuni comprehensive health center and [facility]echelle Dodd Department of Cardiovascular MedicineOUTPATIENT VISIT DATE 06/30/17OUTPATIENT VISIT TYPENEWPRIMARY CARE PHYSICIAN:Peter Sosa, DO[address] [place] [address]Zjdgy: [phone]: [phone] COMPLAINT:Patient presents with:CARD New Patient ConsultHISTORY OF [...] and under the care of Dr. Schilling [facility]. She has had multiple procedures performed which [...] year. She does state that shewas taking hsvt-okx-jougpwp diet pills until recently. They were notworking. [...] review of the testing it seems theprevious motion study analyst was going by the guidelines with continuedreasonable [...] kg (280 lb) SpO2 100% BMI 49.6 kg/s7Nmlpikz: Well appearing, in no acute distress.Eyes: Conjunctiva [...] - a [facility] ventricular systolic function withan ejectionfraction of 60%. There was no significant valvular disease identified.There was no comment on diastolic function.02/24/2017 - a [facility] normal to mildly reduced left ventricular systolic functionwith an ejection fraction of 45-50%. There was minimal concentric leftventricular hypertrophy present. There was evidence of grade 1 diastolicdysfunction. There was mild mitral regurgitation. No estimate a rightventricular systolic pressure was possible on this study.Stress Evaluations:02/26/2016 - a Lexiscan nuclear stress evaluation at the [facility] revealed a left ventricular ejection fraction of 50% with abnormalsep allyssa wall motion. There was a small defect involving the inferior ohapical wall which was fixed. This was felt to likely represent artifact.There was no other evidence of Lexiscan stress-induced ischemia.02/24/2017 - a Lexiscan nuclear stress evaluation at the [facility] revealed mildly diminished left ventricular systolic function withan ejection fraction of 48%. There was a moderate sized anterior septaldefect which was partially reversible noted. This was read as suggestiveof possible stress-induced ischemia.Cardiac Catheterizations:07/16/2004 - a cardiac catheterization performed at the [facility] revealed normal coronary arteries. There was moderately decreasedleft ventricular systolic function noted with an ejection fraction of 30%. Moderately elevated right heart pressures and a normal cardiac index werenoted. The patient was continued on Demadex, Diovan, around oh lactone,Coreg 3.125 mg twice a day.06/12/2005 - a right and left heart catheterization was performed at [facility] revealing nonobstructive coronary arterydisease, left ventricular ejection fraction of 50%, moderate pulmonaryhypertension, severely elevated left ventricular end-diastolic pressure,normal cardiac output and normal cardiac index. The patient was startedon Lasix 40 mg twice a day.02/14/2008 - a right and left heart catheterization was performed at [facility] revealing mild 3 vessel coronaryartery disease, mildly reduced left ventricular systolic function (noejection fraction noted on the report), mild mitral regurgitation, mildlyelevated left ventricular end-diastolic pressure, mild pulmonaryhypertension and a normal cardiac index. No changes were made to themedical regimen.02/28/2013 - a right and left heart catheterization performed at [facility] reveals mild 3 vessel coronary artery disease, mildpulmonary hypertension, preserved cardiac index and no evidence of cardiacshunt. This study was performed due to anabnormal stress test and asuspected patent foramen ovale versus ASD on echocardiogram. Medicaltherapy was recommended but not detailed in the report.03/05/2017 - a right and left heart catheterization was performed at [facility] revealing nonobstructive coronary artery disease,mildly reduced [...] physicianvia [employer]. [employer].This document was generated utilizing [employer]. Keira reviewedand verified that the contents of the document are accurate with theexception of minorgrammatical, spelling and punctuation errors.CONTACT INFORMATION:Thank you for allowing us to participate in the care of this very pleasantpatient. Please free to contact us if we can be of any furtherassistance.Italo Ann MD, [facility] and [facility]hel[facility] Manciaz[facility] centersharron of Cardiovascular MedicineHeart and Vascular InstituteToledo Hospital[address], [place] [address]Qxsweg: [phone] NormalCOhio[facility] Vital Signs Date TimeVital SignValuePerforming JvymnwdbdXsissxxt78-97-9348 13:53-0400Body xiipik977.02 cmDaniel Sosa DO Work Phone: 1(871)699-[address] [place], [place] 2565209-24-2025 13:53-0400 Body mass index (BMI) [Ratio]38 kg/s3Raewde Sosa DO Work Phone: [phone]09-24-2025 13:53-0400 Body zygmxo37.52 kgDaniel Sosa DO Work Phone: [phone])[address]09-24-2025 13:53-0400 Diastolic blood xvuwhyqz77 mm[Hg]Peter Sosa DO Work Phone: 1(544)612-[address] [place], [place] 4624009-24-2025 13:53-0400 Heart rate83 /minDaniel Sosa DO Work Phone: 9(148)857-[address] [place], [place] 2565209-24-2025 13:53-0400 Respiratory rate18 /minDaniel Sosa DO Work Phone: 1(192)787-[address] [place], [place] 4624009-24-2025 13:53-0400 SaO2% (BldA) [Mass fraction]96 %Peter Sosa DO Work Phone: 1(176)115-[address] [place], [place] 4624009-24-2025 13:53-0400 Systolic blood ybjgbync793 mm[Hg]Peter Sosa DO Work Phone: 1(838)979-[address] [place], [place] 2565207-11-2025 12:31-0400 Body essgqs086 cmVlad Joel MD Work Phone: [facility]07-11-2025 12:31-0400Body mass index (BMI) [Ratio]37.41 kg/k5FvzmumoVlad Joel MD Work Phone: [facility]07-11-2025 12:31-0400Body homqxm54.8 kgMattnatalya Joel MD Work Phone: [facility]05-30-2025 11:39-0400Body sdufoc873.6 cmLeah Barrera MD Work Phone: [phone]05-30-2025 11:39-0400Body mass index (BMI) [Ratio]34.5 kg/g9MxgkajLeah Barrera MD Work Phone: [phone])[address] [place], [place] 4887205-30-2025 11:39-0400Body luaqdc38.17 kgLeah Barrera MD Work Phone: [phone])[address] [place], [place] 4887205-30-2025 11:39-0400Diastolic blood vhkarzwi59 mm[Hg]Leah Barrera MD Work Phone: 1(690)[address] [place], [place] 4887205-30-2025 11:39-0400Heart rate63 /min Leah Barrera MD Work Phone: [phone])[address] [place], [place] 4887205-30-2025 11:39-0400Systolic blood mm[Hg]Leah Barrera MD Work Phone: [phone])[address] [place], [place] 4887204-02-2025 10:16-0400Body fvxyyx690.6 cmLeah Barrera MD Work Phone: [phone])[address] [place], [place] 4887204-02-2025 10:16-0400Body mass index (BMI) [Ratio]34.5 kg/m7QwlklrLeah Barrera MD Work Phone: 1(129)[address] [place], [place] 4887204-02-2025 10:16-0400Body eyjxgo99.17 kgLeah Barrera MD Work Phone: [phone])[address] [place], [place] 4887204-02-2025 10:16-0400Diastolic blood ogaminit51 mm[Hg]Leah Barrera MD Work Phone: 1(439)[address] [place], [place] 4887204-02-2025 10:16-0400Heart rate76 /min Leah Barrera MD Work Phone: [facility] HospitalKakuewimpo73-23-9333 10:16-0400Systolic blood nruzedin94 mm[Hg]Leah Barrera MD Work Phone: [facility] HospitalNovqehyele72-12-4019 07:28-0400Body temperature 97.7 [degF]Estrella Angelo MD Work Phone: [facility]03-21-2025 07:28-0400Diastolic blood bpwqpduk82 mm[Hg]Estrella Angelo MD Work Phone: [facility]03-21-2025 07:28-0400Heart rate60 /minEstrella Angelo MD Work Phone: [facility]03-21-2025 07:28-0400 Respiratory rate20 /minEstrella Angelo MD Work Phone: [facility]03-21-2025 07:28-3021YoB5% (BldA) [Mass fraction]97 %Estrella Angelo MD Work Phone: [facility]03-21-2025 07:28-0400Systolic blood kfehxepg124 mm[Hg]Estrella Angelo MD Work Phone: [facility]03-20-2025 15:07-0400Body Mehran Angelo MD Work Phone: [facility]03-20-2025 15:07-0400Body mass index (BMI) [Ratio]37.92 kg/m2Estrella Angelo MD Work Phone: [facility]03-20-2025 15:07-0400Body qexxdf76.07 kgEstrella Angelo MD Work Phone: [facility]01-09-2025 12:38-0500Body aaagjp396.02 cm[facility]01-09-2025 12:38-0500Body mass index (BMI) [Ratio]38.9 kg/x2IqfsfohlqUniversity Hospitals [facility]01-09-2025 12:38-0500Body dmspjniztmk79.4 [degF][facility] Vchjgy78-77-9328 12:38-0500Body cpszea80.84 kgUniversity [facility]01-09-2025 12:38-0500Diastolic blood efzaxndv85 mm[Hg][facility] 10-27-2024 12:38-0500Heart rate80 /[facility] 10-27-2024 12:38-0500Respiratory rate18 /minUniversity Hospitals Par[facility] Center 10-27-2024 12:38-2719CuE2% (BldA) [Mass fraction]98 %[facility]01-09-2025 12:38-0500Systolic blood rayigihf653 mm[Hg][facility]03-19-2024 14:24-0400Body ziohea112.02 cmUniversity [facility]03-19-2024 14:24-0400Body mass index (BMI) [Ratio]35.9 kg/m2 [facility]03-19-2024 14:24-0400Body kapyrrakrgq46.3 [degF][facility]03-19-2024 14:24-0400Body toeucj15.07 kg [facility]03-19-2024 14:24-0400Diastolic blood datsslju92 mm[Hg][facility]03-19-2024 14:24-0400Heart rate72 /min [facility]03-19-2024 14:24-0400Respiratory rate20 /min [facility]03-19-2024 14:24-6293YoU0% (BldA) [Mass fraction]99 %[facility]03-19-2024 14:24-0400Systolic blood fessxbnt813 mm[Hg][facility]09-19-2023 14:15-0400 Body .02 Vinitahristted Romeo Other [employer] Other 09-19-2023 14:15-0400Body mass index (BMI) [Ratio] 36.31 kg/t8Kxvqiqsoeov Agueda Other [employer] Other 09-19-2023 14:15-0400Body pqqhpyzqntd23.4 [degF] Christnilesher Agueda Other [employer] Other 09-19-2023 14:15-0400Body .99 kgChristopher Agueda Other [employer] Other 09-19-2023 14:15-0400Diastolic blood blrhzbeh99 mm[Hg] Christopher Agueda Other [employer] Other 09-19-2023 14:15-0400Respiratory rate20 /min Christopher Agueda Other [employer] Other 09-19-2023 14:15-1690NzA2% (BldA) [Mass fraction]100 % Christopher Agueda Other [employer] Other 09-19-2023 14:15-0400Systolic blood mm[Hg] Christopher Agueda Other [employer] Other 06-07-2023 08:50-0400Body mrxpksutzem21.5 [degF]Anusha Barber MD Work Phone: [facility] LabsCzxnns98-39-2134 08:50-0400Diastolic blood tnifhorm80 mm[Hg]Anusha Barber MD Work Phone: [facility]Med[facility] LabsPrgqea44-48-6218 08:50-0400Heart rate76 /min Anusha Barber MD Work Phone: [facility] LabsTwtpxe66-92-3089 08:50-6005DxF9% (BldA) [Mass fraction]96 %Anusha Barber MD Work Phone: [facility] HospitalKkhgex21-81-2438 08:50-0400Systolic blood vxouwqgx479 mm[Hg]Anusha Barber MD Work Phone: [facility] HospitalHlfsut51-00-6601 04:20-0400Respiratory rate14 /minDjohnnie Barber MD Work Phone: [facility] HospitalSdsweg34-55-7715 11:45-0400Body yqklbm949 cm Anusha Barber MD Work Phone: [facility] HospitalVvlcus76-53-8766 11:45-0400Body mass index (BMI) [Ratio]40.07 kg/y9Kwaizsujey Barber MD Work Phone: [facility] HospitalYvwzhp05-26-5627 11:45-0400Body fojjnc316.6 kg Anusha Barber MD Work Phone: [facility] HospitalCentgu81-32-7568 13:45-0400Body .02 cmReynaldo Trejo Other [employer] Other 04-24-2023 13:45-0400Body mass index (BMI) [Ratio] 42.31 kg/m8BijfawReynaldo Trejo Other [employer] Other 04-24-2023 13:45-0400Body yjkexp913.37 kgReynaldo Trejo Other [employer] Other 04-24-2023 13:45-0400Diastolic blood djurlmbf28 mm[Hg] Reynaldo Trejo Other [employer] Other 04-24-2023 13:45-0400Respiratory rate18 /Terra Trejo Other [employer] Other 04-24-2023 13:45-5223LvP7% (BldA) [Mass fraction]98 % Reynaldo Trejo Other [employer] Other 04-24-2023 13:45-0400Systolic blood qfktfijn287 mm[Hg] Reynaldo Trejo Other [employer] Other 03-21-2023 15:15-0400Body yjviib378.02 cmChristopher Agueda Other [employer] Other 03-21-2023 15:15-0400Body mass index (BMI) [Ratio]41.8 kg/c4Ijxltvsqpum Agueda Other [employer] Other 03-21-2023 15:15-0400Body wusyejoyqeu72 [degF] Christnilesher Agueda Other [employer] Other 03-21-2023 15:15-0400Body xkafik763.05 kgChristopher Agueda Other [employer] Other 03-21-2023 15:15-0400Diastolic blood hwuuadau50 mm[Hg] Christopher Agueda Other [employer] Other 03-21-2023 15:15-0400Respiratory rate20 /min Christopher Agueda Other [employer] Other 03-21-2023 15:15-1469AjN5% (BldA) [Mass fraction]98 % Christopher Agueda Other [employer] Other 03-21-2023 15:15-0400Systolic blood mm[Hg] Christopher Agueda Other [employer] Other 12-19-2022 08:06-0500Body .7 [degF]Anusha Barber MD Work Phone: [facility] Xcdfck39-53-2154 08:06-0500Diastolic blood sxpypoch43 mm[Hg]Anusha Barber MD Work Phone: [facility] Dkgbfb96-43-6604 08:06-0500Heart rate73 /min Anusha Barber MD Work Phone: [facility] Bwxqfg41-87-2264 08:06-0500Respiratory rate16 /minDavieli Barber MD Work Phone: [facility] Fnwtld63-24-1685 08:06-9367HeX3% (BldA) [Mass fraction]96 %Anusha Barber MD Work Phone: [facility] Utqsyn79-80-4115 08:06-0500Systolic blood ndrhyaxt363 mm[Hg]Anusha Barber MD Work Phone: [facility] Irtola35-84-7785 10:00-0500Body lwuvww315 cm Anusha Barber MD Work Phone: [facility] Giyvlb78-60-6438 10:00-0500Body mass index (BMI) [Ratio]43 kg/d1KvwraAnusha Barber MD Work Phone: [facility] Ishnlw29-95-6421 10:00-0500Body ekiwow080.1 kg Anusha Barber MD Work Phone: [facility] Ehstpv62-79-9843 11:00-0500Body jfwble428.02 Callie Henderson Other [employer] Other 12-13-2022 11:00-0500Body mass index (BMI) [Ratio] 43.61 kg/m2Mabel Henderson Other [employer] Other 12-13-2022 11:00-0500Body ugfthlsxywp77.3 [degF]Mabel Henderson Other [employer] Other 12-13-2022 11:00-0500Body zzcjef328.68 kgMabel Henderson Other [employer] Other 12-13-2022 11:00-0500Diastolic blood ldwzqzri29 mm[Hg] Mabel Henderson Other [employer] Other 12-13-2022 11:00-0500Respiratory rate18 /minMabel Henderson Other [employer] Other 12-13-2022 11:00-4224ErS2% (BldA) [Mass fraction]94 % Mabel Henderson Other [employer] Other 12-13-2022 11:00-0500Systolic blood kcbkcest611 mm[Hg] Mabel Henderson Other [employer] Other 12-08-2022 13:14-0500Body sufndd035.02 cmDaniel A [employer] Work Phone: mp181-1806FP-Erezh [place] [address] DO Work Phone: 1(926) 814-508812-08-2022 13:14-0500Body mass index (BMI) [Ratio] 43.93 kg/b5Bvstyq A [employer] Work Phone: mp262-4288AN-Xmtbn [place] [address] DO Work Phone: 1(571) 755-276812-08-2022 13:14-0500Body surface area Derived from formula2.12 n4Osdbtk A [employer] Work Phone: mp482-0531LA-Bodry [place] [address] DO Work Phone: 1(969) 674-160212-08-2022 13:14-0500Body ohyjqt092.49 kgDaniel Julio Cesar Sosa Work Phone: mp202-4645UW-[employer] [place] [address] DO Work Phone: 1(553) 194-405612-08-2022 13:14-0500Diastolic blood mm[Hg] Peter Harrell Sosa Work Phone: mp550-4065XB-Rqcgy [place] [address] DO Work Phone: 1(457) 550-628612-08-2022 13:14-0500Heart rate54 /minDaniel A Sosa Work Phone: mp846-9261UR-[employer]xx[employer] [place] [address] DO Work Phone: 1(113) 865-284812-08-2022 13:14-0500Systolic blood ejvsmgsl558 mm[Hg] Peter Harrell [employer] Work Phone: mp603-9283JS-[employer] [place] [address] DO Work Phone: 1(793) 402-428710-31-2022 10:00-0400Body gsplir993.02 cmReynaldo Trejo Other [employer] Other 10-31-2022 10:00-0400Body mass index (BMI) [Ratio] 43.55 kg/e5FavleeReynaldo Trejo Other [employer] Other 10-31-2022 10:00-0400Body .54 kgReynaldo Trejo Other [employer] Other 10-31-2022 10:00-0400Diastolic blood qevrpwnv42 mm[Hg] Reynaldo Trejo Other [employer] Other 10-31-2022 10:00-0400Respiratory rate18 /Terra Trejo Other [employer] Other 10-31-2022 10:00-0001GgY7% (BldA) [Mass fraction]99 % Reynaldo Davisdiff Other [employer] Other 10-31-2022 10:00-0400Systolic blood oskpqxoh205 mm[Hg] Reynaldosara Davisdiff Other [employer] Other 09-13-2022 10:15-0400Body wgoncg720.02 cmReynaldo Bonillaff Other [employer] Other 09-13-2022 10:15-0400Body mass index (BMI) [Ratio] 44.85 kg/s9Zhvlgv Maya Other [employer] Other 09-13-2022 10:15-0400Body yzttkw814.85 kgAshkansara Bonillaff Other [employer] Other 09-13-2022 10:15-0400Diastolic blood npmrotfp75 mm[Hg] Reynaldo Maya Other [employer] Other 09-13-2022 10:15-0400Respiratory rate18 /minDbruno Trejo Other [employer] Other 09-13-2022 10:15-4695ClP0% (BldA) [Mass fraction]97 % Reynaldo Maya Other [employer] Other 09-13-2022 10:15-0400Systolic blood sioylajv694 mm[Hg] Reynaldo Trejo Other [employer] Other 08-09-2022 12:11-0400Body pufxch179.02 cmDO Elda Schwerer Work Phone: 1(335)[address] [place], [place] 5838208-09-2022 12:11-0400 Body ubqbsgqbjsg63.8 [degF]DO Elda Schwerer Work Phone: 1(134)[address] [place], [place] 5838208-09-2022 12:11-0400 Body unuetw298.4 kgDO Elda Schwerer Work Phone: 1(204)[address] [place], [place] 5838208-09-2022 12:11-0400 Diastolic blood mm[Hg]DO Elda Schwerer Work Phone: 1(647)[address] [place], [place] 5838208-09-2022 12:11-0400 Heart rate74 /minDO Elda Schwerer Work Phone: 1(010)[address] [place], [place] 5838208-09-2022 12:11-0400 Respiratory rate18 /minDO Elda Schwerer Work Phone: 1(492)[address] [place], [place] 5838208-09-2022 12:11-0400 SaO2% (BldA) [Mass fraction]97 %DO Elda Schwerer Work Phone: 1(092)[address] [place], [place] 5838208-09-2022 12:11-0400 Systolic blood siuikcem507 mm[Hg]DO Elda Schwerer Work Phone: 1(283)[address] [place], [place] 5838208-02-2022 12:15-0400 Body jeklqj404.02 cmReynaldo Trejo Other [employer] Other 08-02-2022 12:15-0400Body mass index (BMI) [Ratio] 44.58 kg/u6CjvakkReynaldo Trejo Other [employer] Other 08-02-2022 12:15-0400Body cfjxak769.17 kgReynaldo Trejo Other [employer] Other 08-02-2022 12:15-0400Diastolic blood gallddes97 mm[Hg] Reynlado Trejo Other [employer] Other 08-02-2022 12:15-0400Respiratory rate18 /minDbruno Maya Other [employer] Other 08-02-2022 12:15-3050XaA2% (BldA) [Mass fraction]96 % Reynaldo Trejo Other [employer] Other 08-02-2022 12:15-0400Systolic blood cjlzeykf095 mm[Hg] Reynaldo Trejo Other [employer] Other 06-29-2022 15:45-0400Body peacsa593.02 cmReynaldo Maya Other [employer] Other 06-29-2022 15:45-0400Body mass index (BMI) [Ratio] 44.99 kg/b6Xsqxev Maya Other [employer] Other 06-29-2022 15:45-0400Body dkhlsi055.21 kgReynaldo Trejo Other [employer] Other 06-29-2022 15:45-0400Diastolic blood ecrvyqxp49 mm[Hg] Reynaldo Trejo Other [employer] Other 06-29-2022 15:45-0400Respiratory rate18 /Terra Maya Other [employer] Other 06-29-2022 15:45-9601LfZ2% (BldA) [Mass fraction]97 % Reynaldo Trejo Other [employer] Other 06-29-2022 15:45-0400Systolic blood imksmymn352 mm[Hg] Reynaldo Davisdiff Other [employer] Other 06-29-2022 13:57-0400Body tlhhpnjdbae88 [degF]DO Elda Schwerer Work Phone: 1(495)[address]06-29-2022 13:57-0400 Body .21 kgDO Elda Schwerer Work Phone: 1(242)[address]06-29-2022 13:57-0400 Diastolic blood pepzajkm73 mm[Hg]DO Elda Schwerer Work Phone: 1(767)[address]06-29-2022 13:57-0400 Heart rate81 /minDO Elda Schwerer Work Phone: 1(688)[address]06-29-2022 13:57-0400 Respiratory rate16 /minDO Elda Schwerer Work Phone: 1(531)[address]06-29-2022 13:57-0400 SaO2% (BldA) [Mass fraction]94 %DO Elda Schwerer Work Phone: [phone]06-29-2022 13:57-0400 Systolic blood kspesztj928 mm[Hg]DO Elda Schwerer Work Phone: 1(247)[facility]06-28-2022 15:45-0400 Body gvdyja486.02 Justin Romeo Other [employer] Other 06-28-2022 15:45-0400Body mass index (BMI) [Ratio] 44.63 kg/a2Apcanmunkrh Agueda Other [employer] Other 06-28-2022 15:45-0400Body bpkgcpmirgl04 [degF] Christnilesher Agueda Other [employer] Other 06-28-2022 15:45-0400Body jnirdl560.31 kgChristopher Agueda Other [employer] Other 06-28-2022 15:45-0400Diastolic blood meieoign77 mm[Hg] Christnilesher Agueda Other [employer] Other 06-28-2022 15:45-0400Respiratory rate20 /min Christnilesher Agueda Other [employer] Other 06-28-2022 15:45-9376CmX9% (BldA) [Mass fraction]95 % Christnilesher Agueda Other [employer] Other 06-28-2022 15:45-0400Systolic blood drkuvjnm825 mm[Hg] Christnilesher Agueda Other [employer] Other 06-15-2022 14:40-0400Body .02 Callie Henderson Other [employer] Other 06-15-2022 14:40-0400Body mass index (BMI) [Ratio] 44.88 kg/m2Mabel Henderson Other [employer] Other 06-15-2022 14:40-0400Body rtfmbyaldkd57.9 [degF]Mabel Henderson Other [employer] Other 06-15-2022 14:40-0400Body .94 kgMabel Henderson Other [employer] Other 06-15-2022 14:40-0400Diastolic blood kwpjibyx84 mm[Hg] Mabel Henderson Other [employer] Other 06-15-2022 14:40-0400Respiratory rate18 /minMabel Henderson Other [employer] Other 06-15-2022 14:40-7870GdB8% (BldA) [Mass fraction]92 % Mabel Henderson Other [employer] Other 06-15-2022 14:40-0400Systolic blood dhemwgxi532 mm[Hg] Mabel Henderson Other [employer] Other 04-20-2022 15:45-0400Body hiqpnd658.02 cmReynaldo Trejo Other [employer] Other 04-20-2022 15:45-0400Body mass index (BMI) [Ratio] 45.06 kg/j9YwfqeoReynaldo Trejo Other [employer] Other 04-20-2022 15:45-0400Body dukjec847.4 kgReynaldo Trejo Other [employer] Other 04-20-2022 15:45-0400Diastolic blood szitpxje90 mm[Hg] Reynaldo Davisdiff Other [employer] Other 04-20-2022 15:45-0400Respiratory rate18 /minDbruno Trejo Other [employer] Other 04-20-2022 15:45-5471QhZ8% (BldA) [Mass fraction]95 % Reynaldo Davisdiff Other [employer] Other 04-20-2022 15:45-0400Systolic blood cqbicqnl382 mm[Hg] Reynaldo Davisdiff Other [employer] Other 03-02-2022 14:44-0500Body yarppm245.29 cmDO Elda Schwerer Work Phone: [facility]01-18-2022 16:00-0500 Body mass index (BMI) [Ratio]46.09 kg/u0Gmiavcn Schwerer Other [employer] Other 01-18-2022 16:00-0500Body uciklx576.03 kgKaitlin Schwerer Other [employer] Other 01-18-2022 16:00-0500Diastolic blood ypyyqrcv59 mm[Hg] Elda Schwerer Other [employer] Other 01-18-2022 16:00-5847EeT6% (BldA) [Mass fraction]93 % Elda Schwerer Other [employer] Other 01-18-2022 16:00-0500Systolic blood oriaakbi331 mm[Hg] Elda Schwerer Other [employer] Other 01-18-2022 14:45-0500Body jtfsxa054.02 cmReynaldo Trejo Other [employer] Other 01-18-2022 14:45-0500Body mass index (BMI) [Ratio] 46.44 kg/v4TylwqqReynaldo Trejo Other [employer] Other 01-18-2022 14:45-0500Body .93 kgReynaldo Trejo Other [employer] Other 01-18-2022 14:45-0500Diastolic blood mm[Hg] Reynaldo Trejo Other [employer] Other 01-18-2022 14:45-0500Respiratory rate18 /Terra Trejo Other [employer] Other 01-18-2022 14:45-8826UwW7% (BldA) [Mass fraction]95 % Reynaldo Trejo Other [employer] Other 01-18-2022 14:45-0500Systolic blood mm[Hg] Reynaldo Trejo Other [employer] Other 12-08-2021 14:00-0500Body enfrga500.02 Jackson Hayden Other [employer] Other 12-08-2021 14:00-0500Body mass index (BMI) [Ratio] 46.97 kg/s9VbxilLaquita Hayden Other [employer] Other 12-08-2021 14:00-0500Body lipwtelcyyk51.3 [degF]Laquita Hayden Other [employer] Other 12-08-2021 14:00-0500Body .29 kgLaquita Hayden Other [employer] Other 12-08-2021 14:00-0500Diastolic blood wuobfpvq91 mm[Hg] Laquita Hayden Other [employer] Other 12-08-2021 14:00-0500Respiratory rate18 /minEsasha Hayden Other [employer] Other 12-08-2021 14:00-1798XrN8% (BldA) [Mass fraction]93 % Laquita Hayden Other [employer] Other 12-08-2021 14:00-0500Systolic blood qruflzuh252 mm[Hg] Laquita Hayden Other [employer] Other 10-07-2021 11:45-0400Body .02 cmKatoñitolin Schwerer Other [employer] Other 10-07-2021 11:45-0400Body mass index (BMI) [Ratio] 46.16 kg/z0Tvovxaq Schwerer Other [employer] Other 10-07-2021 11:45-0400Body qfvgja094.21 kgKaitlin Schwerer Other [employer] Other 10-07-2021 11:45-0400Diastolic blood gbufukus29 mm[Hg] Elda Schwerer Other [employer] Other 10-07-2021 11:45-0400Respiratory rate18 /minKaitlin Schwerer Other [employer] Other 10-07-2021 11:45-6179MxY6% (BldA) [Mass fraction]98 % Elda Schwerer Other [employer] Other 10-07-2021 11:45-0400Systolic blood wdohsplh718 mm[Hg] Elda Schwerer Other [employer] Other 09-23-2021 12:00-0400Body deiirw514.02 cmReynaldo Trejo Jr. Other [employer] Other 09-23-2021 12:00-0400Body mass index (BMI) [Ratio] 45.84 kg/s3AfroucReynaldo Trejo Jr. Other [employer] Other 09-23-2021 12:00-0400Body ecnbpb122.39 kgReynaldo Trejo Jr. Other [employer] Other 09-23-2021 12:00-0400Diastolic blood mlaeqlaz31 mm[Hg] Reynaldo Trejo Jr. Other [employer] Other 09-23-2021 12:00-0400Respiratory rate18 /Terra Trejo Jr. Other [employer] Other 09-23-2021 12:00-9070VuM8% (BldA) [Mass fraction]96 % Reynaldo Davismaxim Carvajal Other [employer] Other 09-23-2021 12:00-0400Systolic blood qqbupkkx664 mm[Hg] Reynaldo Trejo Other [employer] Other 09-22-2021 12:15-0400Body iahaxj374.02 cmChristnilesher Agueda Other [employer] Other 09-22-2021 12:15-0400Body mass index (BMI) [Ratio] 45.34 kg/l1Ytacuwppzob Agueda Other [employer] Other 09-22-2021 12:15-0400Body sktjctgziat70.3 [degF] Christopher Agueda Other [employer] Other 09-22-2021 12:15-0400Body .12 kgChristopher Agueda Other [employer] Other 09-22-2021 12:15-0400Diastolic blood dqmuxpjz95 mm[Hg] Christopher Agueda Other [employer] Other 09-22-2021 12:15-0400Respiratory rate20 /min Christopher Agueda Other [employer] Other 09-22-2021 12:15-6368DpA4% (BldA) [Mass fraction]94 % Christopher Agueda Other [employer] Other 09-22-2021 12:150400Systolic blood cpbkdizt798 mm[Hg] Yuan Romeo [facility] Other Encounters Encounter DateEncounter TypeCare ProviderFacilityStart: 07-13-2025 End: 41-21-1417emrevojdvnSoqqkagy Talal SarminiFacility:[facility]IFORNIAtart: 07-12-2025 End: 14-42-8983imuumahmxtEknkjh A Sosa DO Work Phone: [facility] Work Phone: Start: 07-12-2025 End: 08-83-5922Jxlcwpq encounter procedureMabel Henderson MD-[facility] Work Phone: Start: 80-41-4225Mrk-patient / Non-visitMabel Henderson MD-[facility] Work Phone: Start: 06-13-2025 End: 20-48-3882mpmahuidlyDugvohig Talal SarminiFacility:Anel DHStart: 54-35-9584dzcazmpvflMTUBFZD D BEALFacility:[facility]ENTERtart: 04-28-2025 End: 46-51-8407Krabaj consultation new/estab patient 60 Daphnie Joel MD Work Phone: [facility] on above:Left knee pain, unspecified chronicity (Primary Dx); Left hip pain; History of total knee arthroplasty, left; Primary osteoarthritis of left hipStart: 04-28-2025 End: 49-70-6909Hmihgqbcum hospital visit by Татьяна Jeol MD Work Phone: [facility] on above: ArrivedStart: 31-91-8078tcnocbmkhpLOOYXOV D BEALFacility:[facility] Start: 04-11-2025 End: 59-54-3587fsknhpqvaqFvxqmd [facility] Work Phone: Start: 04-11-2025 End: 23-53-1525Anlrextw ReferredPeter Sosa DO-[facility] Start: 03-17-2025 End: 09-49-1674Ijeosl flowsEdith Barrera MD Work Phone: [facility]ALKStart: 03-17-2025 End: 31-61-6904Woqvkz flowsheetLeah Barrera MD Work Phone: [facility] NORWALKStart: 03-17-2025 End: 65-40-4507lryhdzjscgSTXHFZ H TIMMISNot AvailableStart: 03-17-2025 End: 54-65-5087Iznlju outpatient visit 25 minutesHihaven Barrera MD Work Phone: [facility] CENTERKComment on above:Allergic rhinitis, unspecified seasonality, unspecified trigger (Primary Dx); Sensorineural hearing loss (SNHL), bilateral; Nontoxic multinodular goiter (CMS/HCC)Start: 03-14-2025 End: 01-44-3205ivtijuljsfDVKQQJG S WRIGHTNot AvailableStart: 03-14-2025 End: 94-83-4772Yuyhdon encounter Bora Constantino AUD Work Phone: NOWBERTIN RIVERADIOSCAR AUDIOLOGYComment on above: Sensorineural hearing loss, bilateral (Primary Dx); Tinnitus, bilateralStart: 03-14-2025 End: 34-80-2004Fujwkl Ladi Constantino AUD Work Phone: NONWALK BENEDICT AUDIOLOGYStart: 03-14-2025 End: 77-76-0227Nafdbn Ladi Constantino AUD Work Phone: NOZVIELKAMichael BENEDICT AUDIOLOGYStart: 01-24-2025 End: 85-38-5505Lkocosfud Result EncounterHihaven Barrera MD Work Phone: noms External Department UnsolicitedStart: 01-24-2025 End: 34-38-3113Msnyybvvo Result EncounterLeah Barrera MD Work Phone: noms External Department UnsolicitedStart: 01-18-2025 End: 77-51-4792Bxjqhx flowsheetLeah Barrera MD Work Phone: noms CI ENTStart: 01-18-2025 End: 26-58-3542Haytdb flowsheetLeah Barrera MD Work Phone: noms CI ENTStart: 01-18-2025 End: 32-83-5223Gyybnc outpatient visit 25 minutesHihaven Barrera MD Work Phone: noms CI ENTComment on above:ETD (Eustachian tube dysfunction), bilateral (Primary Dx); Ear fullness, bilateral; Swollen gland; Multinodular goiter (CMS/HCC)Start: 01-18-2025 End: 86-65-4067gmardbzizlZNPCAL H TIMMISNot AvailableStart: 01-05-2025 End: 49-68-6907uaemupqhbrFUIN S SMITHMercy Lakeview HospitalStart: 01-05-2025 End: 02-71-3301Beioiiygzh hospital visit by Tommie Angelo MD Work Phone: mthz [facility] MED SURGComment on above:Hypotension after procedure (Primary Dx)Start: 11-14-2024 End: 69-12-7993nljwoghfgfUEIZJareth Mcintyre HospitalStart: 11-14-2024 End: 90-82-2175Qukdtkjvse hospital visit by physicianGEN[facility] LaboratoryStart: 10-27-2024 End: 55-66-5603hgbwbxboelBonosprfeAdams County Hospital Work Phone: Start: 10-27-2024 End: 15-39-2167Snhykwh encounter procedureUn[facility] Work Phone: Start: 06-06-2024 End: 19-41-8667Zftldqbgv identifierDavid Cheng Barber Work Phone: jiS [place]Start: 06-03-2024 End: 58-12-1238Iddrisdqd identifierDavid Cheng Barber Work Phone: jis [place]urStart: 06-01-2024 End: 18-73-9112jozxinwtueXgquecfw Talal SarminiFacility:FTMCStart: 05-25-2024 End: 84-41-0608Fgkmxogfk identifierTaylor Eli Pierre Work Phone: [facility] Work Phone: Start: 05-25-2024 End: 75-82-8833Prsqxu outpatient visit 25 minutesTaylor D Ignacio Work Phone: jis [place]urStart: 03-28-2024 End: 01-91-7829zaxbdgymgbHqengmxf Talal SarminiFacility:Anel DHStart: 03-23-2024 End: 78-63-3858Cdabrj outpatient visit 15 minutesDavid Cheng Barber Work Phone: jis [place]Start: 02-12-2024 End: 60-98-5098Zlhevjvmj Result EncounterHilary Marci Barrera MD Work Phone: noms External Department UnsolicitedStart: 02-12-2024 End: 33-93-1499Dplpqgcsr Result EncounterHilary Marci Barrera MD Work Phone: noms External Department UnsolicitedStart: 01-27-2024 End: 13-36-4657Gwgqodajx Result EncounterHilary Marci Barrera MD Work Phone: noms External Department UnsolicitedStart: 01-27-2024 End: 33-42-5766Svjtqtdlj Result EncounterHilary Marci Barrera MD Work Phone: noms External Department UnsolicitedStart: 01-05-2024 End: 81-17-0844jpkrkquhhfMysclewifAdams County Hospital Work Phone: Start: 01-05-2024 End: 50-31-5764Esctwmn encounter elieUnc Health [facility] Work Phone: Start: 11-03-2023 End: 54-99-6930ruiodkvmsmUjsusbhtrpv Agueda Other [facility] [employer] Other Start: 95-42-1810Fsmlfiawv encounterChristopher AvendanoFPG Pulmonary DiseaseStart: 09-22-2023 End: 11-69-7989yklzldiqmgSngs Bakhous Other [facility] [employer] Other Start: 91-10-5554Hlitmvhrx encounterAziz BakhousFPG NephrologyStart: 08-07-2023 End: 11-30-8539Rgqrmp outpatient visit 10 minutesTaylor D Dackin Work Phone: jis [place]Start: 07-09-2023 End: 37-96-5930Kcyvljwfx identifierDasujey Barber Work Phone: jis [place]urStart: 07-07-2023 End: 04-52-0679xvqaoqswopApmuvtkbpms Agueda Other [facility] [employer] Other Start: 87-09-8642Ozjkqp outpatient visit 15 minutes Christopher AvendanoFPG Pulmonary DiseaseStart: 07-03-2023 End: 02-98-4760Vbxgfouyz identifierTaylor D Dackin Work Phone: jis [place]Start: 06-29-2023 End: 11-58-6634Guempatke identifierTaylor D Dackin Work Phone: jis [place]urStart: 06-29-2023 End: 59-28-6827Mgzdya follow up visit related to original Dyllan Barber MD [facility]Start: 06-04-2023 End: 30-83-2550wscnfyarkzBscuri Cundiff Other [place] [employer] Other Start: 84-28-0237Rmzfmrjdo encounterReynaldo Trejo [facility] ClinicStart: 33-19-1031jsqkzkulzsVGMaude SOSA Facility:K1Bxswi: 03-20-2023 End: 98-15-4717pemuluvxdnWrwf Bakreynasid Other [facility] [employer] Other Start: 43-76-9600Yxyoheuie encounterAzoliver ShannonFPG NephrologyStart: 03-19-2023 End: 97-84-6955Rdoorirtp identifierTacatherine Pierre Work Phone: mount [facility] NASHStart: 03-19-2023 ambulatoryNARENDRANATH LAKSHMIPATHY .Facility:S9Fqsie: 03-19-2023 End: 28-88-2061Zxxslcbpmg and management of inpatientDavid Richard BRYANT Work Phone: mount [facility] HospitalComment on above:Infection and inflammatory reaction due to other internal joint prosthesis, initial encounter ([facility])Start: 03-18-2023 End: 06-08-6373Qncxglyzs identifierMadonna Cavanaugh Work Phone: jis [place]Start: 03-17-2023 End: 02-68-2634Pjchjwjnf identifierMadonna Cavanaugh Work Phone: jis [place]Start: 03-15-2023 End: 73-34-9169lvbipwrhxuLP JEFFREY PAY .Facility:G3Pohba: 12-27-5696Wbhgtmaweb Viet Sosa Work Phone: [facility] Work Phone: Start: 02-09-2023 End: 48-15-6423kkizklfhacPgqila Cundiff Other [place] [employer] Other Start: 44-14-2535Mfxuwo-up encounterReynaldo Trejo [facility] ClinicStart: 01-26-2023 End: 86-89-4452lengrrffydFhifba Cundiff Other [facility] [employer] Other Start: 30-14-8116Kdevlunnx encounterReynaldo Davisdiff [facility] ClinicStart: 01-07-2023 End: 71-56-3849xqnuptcboxRE LEAH TIMMISFacility:K8Yzvgk: 01-06-2023 End: 49-70-4353igfsjhnhkvRwvntprsljv Agueda Other [facility] [employer] Other Start: 11-22-6388Tgupzs outpatient visit 15 minutes Yuan Campo Pulmonary DiseaseStart: 12-18-2022 End: 08-46-4539vgujfuzefnQRWZ SOLIS .Facility:N1Sumfc: 11-24-2022 End: 66-15-0660Qknkzyktr Danny Barber Work Phone: [facility] HospitalStart: 11-20-2022 End: 64-19-5661qztwixfhsuBjfeqm Cundiff Other [facility] [employer] Other Start: 91-46-8228Jerpvdwxy encounterReynaldo Trejo [facility] ClinicStart: 11-04-2022 End: 82-10-0536pjysdcqqceVV VLAD OMALLEYFacility:C3Oqwte: 10-24-2022 End: 80-21-1685mofrtffybtDB DAVIDSON SHAYFacility:S6Qmqrz: 10-23-2022 End: 29-27-7972Hoybrm follow up visit related to original Dyllan Barber MD [facility] [place]Start: 10-23-2022 End: 54-84-6555Pnpxtzvwe Danny Barber Work Phone: jis [place]Start: 10-06-2022 End: 48-29-8367Cgiennqdd identifierDasujey Barber Work Phone: mount [facility]Start: 10-02-2022 End: 63-41-5123Hywjwumcm identifierJojohn Goldman Gomez Work Phone: mount [facility]art: 10-02-2022 End: 62-13-9942Ofazmzfewe and management of inpatientDasujey Barber MD Work Phone: mount [facility] HospitalComment on above:Mechanical loosening of internal left knee prosthetic joint, subsequent encounter (Primary Dx)Start: 09-30-2022 End: 24-20-4779sjdzjvvltpQqql Bakhous Other [place] [employer] Other Start: 46-60-8966Dqkqeb outpatient visit 15 minutes Mabel FryG NephrologyStart: 09-26-2022 End: 28-98-4411Hmhxlhtma identifierTacatherine Constantino Work Phone: jis Therapy [place]phurStart: 60-87-9690oxkofocixmDkDulce SosaFacility:11620Ocros: 89-57-1678Mpilvo outpatient visit 25 minutesDakp Sosa Work Phone: [phone]-Dzxyf [facility] [address] DO Work Phone: Start: 09-23-2022 End: 12-81-8828adlwpaghpwZCSG BAKHOUSFacility:V7Mxrly: 09-19-2022 End: 00-11-5076Gcnxslbmt identifierDasujey Barber Work Phone: jis [place]Start: 09-18-2022 End: 21-60-2535gwzpyvzifyYDBLZVQ SCHWERERFacility:N0Fosrm: 09-03-2022 End: 42-88-5805Yjdfhi outpatient visit 25 minutesDasujey Cheng Richard Work Phone: jis [place]Start: 08-18-2022 End: 55-65-9894kbbvqowgmcBnodzd Cundiff Other [facility] [employer] Other Start: 12-50-9949Snznji-up encounterDonsara Trejo [facility] ClinicStart: 08-05-2022 End: 01-52-4946wsuplccrjhIrzdfx Maya Other [facility] [employer] Other Start: 17-45-8957Oynalungc encounterDonsara Trejo [facility] ClinicStart: 08-04-2022 End: 46-38-1715iojpjczojrWzvwey Cundiff Other [facility] [employer] Other Start: 82-01-4876Sznuvidob encounterDonsara Trejo [facility] ClinicStart: 07-09-2022 End: 52-34-3463Wvmorx outpatient visit 15 minutesDavieli VinsonCheng Richard Work Phone: jis [place]Start: 07-01-2022 End: 07-85-8776dvmqjczbhdAjsyak Cundiff Other [place] [employer] Other Start: 14-39-3803Smxikx-up encounterDonsara Trejo [facility] ClinicStart: 06-05-2022 End: 16-04-8565fiihmpcwrqKP PETER A HERRINGFacility:T1Xfyiy: 05-29-2022 End: 31-23-1273aqeqtkuevuLA PETER A HERRINGFacility:G2Cruyx: 05-28-2022 End: 14-85-3582iduejvnkucOabkvheoibq Agueda Other [facility] [employer] Other Start: 97-39-7827Hbnebuqej encounterChristopher AvendanoG Family Medicine [place]kyStart: 05-27-2022 End: 62-70-9296Rmqsoysjh department patient visitDO Elda Sibley Work Phone: [facility] RoomStart: 05-26-2022 End: 29-23-5648Nryynn outpatient visit 15 minutesDavid Cheng Barber Work Phone: jis [place]Start: 05-21-2022 End: 38-09-7692Wkvatvo encounter procedureDO Elda Lynnmimi Work Phone: [facility]-Lab Strub RdStart: 05-20-2022 End: 16-24-1752oklppbnlwmBtqecx Cundiff Other [facility] [employer] Other Start: 86-50-3873Xpcdca-up encounterDonsara Trejo [facility] ClinicStart: 06-57-0142Ndczpdozmw RecurringDO Elda Castillokarissa Work Phone: [facility]-Weight ManagementStart: 05-13-2022 End: 97-11-9565cxacmbgkghDCCKNHD SCHWERERFacility:B1Cyrav: 05-12-2022 End: 25-39-3402Ezswyh outpatient visit 25 minutesDavieli Barber Work Phone: jis Christiano Garaycritical access hospitalStart: 05-08-2022 End: 90-33-1988cpmbsnikxsAF ANUSHA AGUEROFacility:D2Stpec: 04-29-2022 End: 96-50-6120hldxfplnhlJJ MISCFacility:U5Duyvb: 04-25-2022 End: 53-23-9165vplezmstflND Lucinda DESAIFacility:X9Amoov: 04-24-2022 End: 88-91-9940kahhvlhqyxDB LUCÍA GRIMALDO .Facility:O2Gufjk: 04-16-2022 End: 69-00-8315mfwanzecocEhvynh Cundiff Other [facility] [employer] Other Start: 57-61-5338Zetoar-up encounterReynaldo Trejo [facility] ClinicStart: 48-37-2303Pnumebqujb [facility] Elda Sibley Work Phone: [facility] CenterStart: 04-15-2022 End: 01-47-1730rmdijltxpwHkrgnsmierm Agueda Other [facility] [employer] Other Start: 73-83-1251Tamwux outpatient visit 15 minutes Yuan TobinnoFPG Pulmonary DiseaseStart: 04-02-2022 End: 79-77-5430tkfnuhrrotEhqw Bakreynas Other [place] [employer] Other Start: 71-24-1800Psnxmq outpatient visit 15 minutes Aziz BakreynasFPG NephrologyStart: 04-01-2022 End: 56-53-6051ooravvrmanSY ESSAM ELASHIFacility:S7Btiho: 87-60-4404Dp Renewal Elda Sibley Work Phone: [phone]-BjxmmWorthington Medical CenterScott 250 DO Work Phone: Start: 03-20-2022 End: 45-10-3331kvtznnmrhbBhgzla Cundiff Other [place] [employer] Other Start: 77-79-2603Lkvblgysq encounterReynaldo Trejo [facility] ClinicStart: 03-13-2022 End: 43-51-7309zuzglxdhzwYcfc Bakhous Other [facility] [employer] Other Start: 25-33-3307Hlstnyxjm encounterAzoliver BakhousFPG Urgent Care ClydeStart: 03-04-2022 End: 86-94-5145poekcgkqcpBcuw Bakhous Other [place] [employer] Other Start: 39-97-6510Gwdpvnomf encounterAziz BakhousFPG NephrologyStart: 02-27-2022 End: 00-51-5055nfyrztyvptBhebson Schwerer Other [place] [employer] Other Start: 68-51-5425Hdlqyslgl encounterKaitlin Schwerer [facility] HospitalyStart: 02-10-2022 End: 67-81-2311oebysdifugBszha Chaban Other [facility] [employer] Other Start: 30-42-7102Whsnuerba encounterKayobani JasonFPG Pulmonary DiseaseStart: 02-05-2022 End: 14-51-7878quecuobuulSeyiqa Cundiff Other [facility] [employer] Other Start: 71-71-6658Ltffkb-up encounterReynaldo Trejo [facility] Centertart: 01-27-2022 End: 59-52-9317vqrfcltzgiUsfyhgj Schwerer Other [facility] [employer] Other Start: 80-78-8411Vtmozzalp encounterKaitlin Schwerer [facility] HospitalyStart: 01-22-2022 End: 61-01-0681qjgugjfbhzLubk Bakhous Other [facility] [employer] Other Start: 65-55-8463Qhmmdrucq encounterAziz BakhousFPG NephrologyStart: 01-09-2022 End: 78-56-6783qmeixjbijtBhbbwys Schwerer Other nort [employer] Other Start: 36-76-9200Qpiousnij encounterKaitlin Schwerer F[facility] [place]kyStart: 60-41-9921mylotcxvhiJLN Daphne Angelo Facility:25287Dtxdq: 12-11-2021 End: 33-67-7809smmmyrdsvqIbzisvh Schwerer Other [employer] Other Start: 89-96-9174Owsvgunvo encounterKaitlin Schwerer [facility] Family Medicine [place]Start: 12-10-2021 End: 94-47-0685beynzbgokkWaeget Cundiff Other [employer] Other Start: 51-56-9218Ghhcafsan encounterReynaldo Trejo [facility] ClinicStart: 12-03-2021 End: 79-40-7838bybkfirgoeQyeqbel Schwerer Other no[employer] Other Start: 47-82-4150Oklpmataz encounterKaitlin Schwerer [facility] Medicine [place]Start: 11-18-2021 End: 26-99-1293pxmgazoubdYdjhc Chaban Other [employer] Other Start: 29-96-0170Jfddzhvvn encounterKamal ChabanFPG Pulmonary DiseaseStart: 11-05-2021 End: 50-24-6312jpfpnyrsxvGgvubl Cund[employer] Other [employer] Other Start: 45-44-8980Sdojdu-up encounterReynaldo Davisdiff [facility] ClinicStart: 32-83-1566Hfvlwi outpatient visit 25 minutesKaitlin SchwererF [facility] Medicine [place]kyStart: 10-22-2021 End: 94-12-0920zhogjmtqwqOtnw Fitt Other [employer] Other Start: 19-16-5679Rbtxzotze encounterDawn FittFirelands Coordinated Care Cass Lake Hospitaltart: 10-03-2021 End: 82-25-7506bjuqzetfgvNaqpupo Schwerer Other [employer] Other Start: 14-23-9604Zidvevhxw encounterKaitlin Schwerer [facility] Medicine [place]kyStart: 60-18-4270uqlablbrczXsDulce Sosa Facility:[id number]: 09-25-2021 End: 74-37-7235axliybhquePycwa Elashi Other [facility] [employer] Other Start: 23-89-2214Tadjau outpatient visit 15 minutes Essam ElashiFPG NephrologyStart: 09-05-2021 End: 37-30-9488sooakjsudmTkmdbko Schwerer Other [employer] Other Start: 29-45-2106Sgrxcfxld encounterKaitlin Schwerer [facility] Family Medicine [place]Start: 93-04-5024Fdkerkjxw encounterKaitlin Schwerer [facility] Family Medicine [place]kyStart: 64-35-2313Ilqiwuxnn encounterKaitlin Schwerer [facility] Family Medicine [place]Start: 88-18-6229Bfotzreso encounterKaitlin Schwerer [facility] Family Medicine [place]Start: 00-09-9394Cnttso outpatient visit 25 minutes Elda SchwererF [facility] Medicine [place]kyStart: 30-02-9272Bacyus-up encounter Reynaldo Trejo Jr.[facility] Centertart: 63-45-7491Rlvbvk outpatient visit 15 minutesChristopher AvendanoFPG Pulmonary DiseaseStart: 28-66-7969Eixgknyad encounterKaitlin SchwererF [facility] Medicine [place]kyStart: 08-03-2018 End: 15-50-4893Ykhsnab encounterDASUJEY BARBERFacility:Christiano DuongStart: 05-27-2018 End: 64-16-9175Vmezvjg encounterITALO FULTONCleveland Clinic [facility] Start: 04-08-2018 End: 27-06-7705Elmohjl encounterITALO VALLADARES [facility] Start: 01-04-2018 End: 31-34-6506Invquno encounterITALO VALLADARES [facility] Start: 12-22-2017 End: 68-16-8720Oocxqur encounterDASUJEY HOWARDYOANDYFacility:Stevo GoldStart: 07-21-2017 End: 67-44-1894Gwtecmj encounterJEJEANETTE VALLADARES [facility] Start: 06-30-2017 End: 87-22-0181Gktryrc encounterJEJEANETTE VALLADARES [facility] Start: 06-17-2017 End: 18-85-3687Zddesih encounterRAMAYCO ALEJOFacility:UTMCEchocardiogram normal Elda E Schwerer Work Phone: [phone]-Phmui [facility] DO Work Phone: Imaging result normalKaitlin E Schwerer Work Phone: [phone]-Zengq [facility] DO Work Phone: Procedures DateProcedureProcedure DetailPerforming ClinicianStart: 04-28-2025 End: 05-22-8095Gmsdybgdbp exam knee complete 4/more viewsMattnatalya Joel MD Work Phone: Start: 39-75-4358LLJBSGSQ FUNCTION TESTSDaphney VALLADARES Work Phone: start: 30-32-2575Fo soft tissue head & neck real time imge docTrace Barrera MD Work Phone: Start: 01-06-2025 End: 75-55-8541Fmropl ecg 1-3 leads w/interpretation & reportUnknown Provider ResultStart: 96-96-0446OBXNP METABOLIC PANEL W/ REFLEX TO MG FOR LOW Jersey Prince ENGRAVER SET UP OPERATOR - RN ENDOSCOPY Work Phone: Start: 56-88-9481Brlll count complete auto&auto difrntl wbcShciro Prince ENGRAVER SET UP OPERATOR - RN ENDOSCOPY Work Phone: Start: 05-03-8025Sizzos ecg 1-3 leads w/interpretation & reportUnknown Provider ResultStart: 27-71-1874Kjhx tthrc r-t 2d w/wom-mode compl spec&colr dShirmilo Harrell [facility] Work Phone: Start: 86-38-0179Xudvxhhvoe microscopic onlyDanika Harrell [facility] Work Phone: Start: 34-41-6261Kvuee dip stick/tablet rgnt auto w/o microscopyDanika Harrell [facility] Work Phone: Start: 74-47-3123Lzvxoywaqt exam chest 2 viewsDanika Harrell [facility] Work Phone: Start: 76-90-8652Fxasjywjwwt during operationEstrella Angelo MD Work Phone: Start: 51-50-4299Mhevui ecg 1-3 leads w/interpretation & reportUnknown Provider ResultStart: 53-26-0226NGSRVXR, WHOLE BLOODEstrella Angelo MD Work Phone: Start: 72-10-8228Mdx routine ecg w/least 12 lds w/i&r Corinne Gunter ENGRAVER SET UP OPERATOR - CRNAStart: 70-95-2448Yqhs count misc body fluids w/differential Joe Angelo MD Work Phone: Start: 43-96-3816Pokgcee id light microscopy luis tiss/any fluidEstrella Angelo MD Work Phone: Start: 05-25-2024 End: 08-71-5121Odouvqkbfueutu aspir&/inj major jt/bursa w/o usTaylor Ignacio PA-C Start: 05-25-2024 End: 43-63-4425Elffhvesm injectionTaylor Ignacio PA-CStart: 03-23-2024 End: 67-20-9752Mikzkzbxzu examination knee 3 jairoDasujey Barber MDStart: 62-19-5443Vj soft tissue neck w/o contrast materialHilary Marci Barrera MD Work Phone: Start: 33-98-9218Nb soft tissue head & neck real time imge docmHilary Marci Barrera MD Work Phone: Start: 07-03-2023 End: 59-05-7531Ouruxafanlkyox aspir&/inj major jt/bursa w/o usDasujey Barber MD Start: 06-29-2023 End: 70-09-8543Kdyryrodcx examination knee 3 viewsAnusha Barber MDStart: 66-76-5623Nruq-cov-2 detection by dna/rnaAnusha Barber MD Work Phone: start: 81-92-8293WEAAZ OXIMETRY, Willian Squires MD Work Phone: Start: 32-75-6379JYZPG OXIMETRY, Willian Squires MD Work Phone: Start: 56-53-8667KVYEC OXIMETRY, Willian Squires MD Work Phone: Start: 65-27-9168LHEZR OXIMETRY, Willian Squires MD Work Phone: Start: 60-05-6225KTXUF OXIMETRY, Willian Squires MD Work Phone: Start: 01-75-7112ZNMXD OXIMETRY, Willian Squires MD Work Phone: Start: 71-37-9393HEUE GLUCOSE BLOODAnusha Barber MD Work Phone: start: 49-56-6860KMWJ GLUCOSE Gretchen Barber MD Work Phone: start: 57-27-4036RYHNR OXIMETRY, Willian Squires MD Work Phone: Start: 62-63-6216Uubej metabolic panel calcium total Valeriano Squires MD Work Phone: Start: 98-34-8996MIO W Auto Differential panel - Blood Valeriano Squires MD Work Phone: Start: 84-95-0855TQTW GLUCOSE BLOODAnusha Barber MD Work Phone: start: 86-99-5962JFCHR OXIMETRYWillian MD Work Phone: Start: 04-11-6798DQZH GLUCOSE Gretchen Barber MD Work Phone: start: 34-64-9130EUPQ GLUCOSE BLOODAnusha Barber MD Work Phone: start: 28-18-6752PLFA GLUCOSE Gretchen Barber MD Work Phone: start: 35-14-7001TQJQM OXIMETRY, Willian Squires MD Work Phone: Start: 14-88-2199Toa routine ecg w/least 12 lds trcg only w/o i&rMyogesh Squires MD Work Phone: Start: 00-53-8009FZOP GLUCOSE BLOODAnusha Barber MD Work Phone: start: 53-43-1157Devvv metabolic panel calcium total Valeriano Squires MD Work Phone: Start: 38-89-0208EYD W Auto Differential panel - Blood Valeriano Squires MD Work Phone: Start: 60-24-3176SHAQ GLUCOSE BLOODDasujey Barber MD Work Phone: start: 23-20-8599HFQPU OXIMETRY, Willian Squires MD Work Phone: Start: 85-04-5967Xzkvflsidx examination knee 1/2 views Kaur BURT Work Phone: start: 03-19-2023 End: 75-16-6507JZCUG OXIMETRY, Willian Squires MD Work Phone: Start: 50-91-0480UATH GLUCOSE BLOODDasujey Barber MD Work Phone: start: 09-76-4178Isffk iv surg pathology gross&microscopic examDasujey Barber MD Work Phone: start: 03-19-2023 End: 20-77-4695Uxzrba kne w/expl drg/rmvl fbAnusha Barber MDStart: 03-19-2023 History of operative procedure on kneeS/P left knee surgeryAnusha Barber MD Work Phone: start: 03-19-2023 End: 69-73-0439ZT Incision Knee Joint For InfectionDasujey Barber MDStart: 03-19-2023 End: 74-60-7548RE Revise Knee Joint ReplacementAnusha Barber MDStart: 03-19-2023 End: 83-76-6062Lfrp total knee arthrp w/wo algrft 1 componentDasujey Barber MD Start: 94-64-8328Wnlv count misc body fluids w/differential countAnusha Barber MD Work Phone: start: 03-19-2023 End: 97-04-8273Ungursb bacterial any source anaerobic iso&idAnusha Barber MD Work Phone: start: 76-21-3955LYIILWETZEHF BODY FLUIDAnusha Barber MD Work Phone: start: 03-19-2023 End: 10-25-2733GHRABYTE DRAINAGE EXTREMITY LOWERAnusha Barber MD Work Phone: start: 03-19-2023 End: 67-18-6598LJOOBOAY KNEE TOTALAnusha Barber MD Work Phone: start: 98-74-1144Gigoh metabolic panel calcium total Valeriano Squires MD Work Phone: Start: 80-73-8695XNZ W Auto Differential panel - Blood Valeriano Squires MD Work Phone: Start: 03-17-2023 End: 04-06-4354Eerzvaqkgfdqso aspir&/inj major jt/bursa w/o Vi Barber MD Start: 10-06-2022 End: 37-39-8403Tubenuunwfir Compression Device - SELF PAYAnusha ZIMMERMANtart: 55-49-2292PSFD GLUCOSE Gretchen Barber MD Work Phone: start: 92-68-7810GBPC GLUCOSE Gretchen Barber MD Work Phone: start: 08-17-4144RXUF GLUCOSE Gretchen Barber MD Work Phone: start: 82-69-6887PJXS GLUCOSE Gretchen Barber MD Work Phone: start: 11-72-3719NWEAY OXIMETRY, CONTINUOUSDavid A Pineda DO Work Phone: Start: 75-28-9603BJBYG OXIMETRY, CONTINUOUSDavid A Pineda DO Work Phone: Start: 86-35-7439XKKJ GLUCOSE Gretchen Barber MD Work Phone: start: 27-79-5219VIHS GLUCOSE Gretchen Barber MD Work Phone: start: 53-08-6145JKBX GLUCOSE BLOODAnusha Barber MD Work Phone: start: 93-88-5096FYXHQ OXIMETRY, CONTINUOUSDavid A Pineda DO Work Phone: Start: 27-67-9269Hmsnx metabolic panel calcium total Doroteo Pineda DO Work Phone: Start: 78-16-0428JUSU GLUCOSE Gretchen Barber MD Work Phone: start: 38-79-3812EFJN GLUCOSE Gretchen Barber MD Work Phone: start: 77-59-2209SVAHC OXIMETRY, CONTINUOUSDavid A Pineda DO Work Phone: Start: 19-45-7607WSDQ GLUCOSE Gretchen Barber MD Work Phone: start: 31-62-9908AVAA GLUCOSE BLOODAnusha Barber MD Work Phone: start: 66-35-6347DSAAM OXIMETRY, CONTINUOUSDavid A Pineda DO Work Phone: Start: 34-75-8821MPZS GLUCOSE BLOODAnusha Barber MD Work Phone: start: 70-06-7778Qtbfp metabolic panel calcium total Doroteo Pineda DO Work Phone: Start: 48-75-1985DVMR GLUCOSE Grethcen Barber MD Work Phone: start: 90-28-3372SBUUK OXIMETRY, CONTINUOUSDavid A Pineda DO Work Phone: Start: 26-69-6584GRRF GLUCOSE BLOODAnusha Barber MD Work Phone: start: 98-11-9680WDSHR OXIMETRY, CONTINUOUSDavid A Pineda DO Work Phone: Start: 10-02-2022 End: 67-20-1532QS Revise Knee Joint ReplacementAnusha ZIMMERMANtart: 10-02-2022 End: 61-06-5738Dysy total knee arthrp w/wo algrft 1 componentDasujey Barber MD Start: 99-79-0482UAMV GLUCOSE BLOODAnusha Barber MD Work Phone: start: 27-94-8148Aelmd iv surg pathology gross&microscopic examAnusha Barber MD Work Phone: start: 26-16-2576Jyhb count misc body fluids w/differential countAnusha Barber MD Work Phone: start: 10-02-2022 End: 07-90-1212Phwnvqp bacterial any source anaerobic iso&idDasujey Barber MD Work Phone: start: 55-05-7230LUDHQSZDOORH BODY FLUIDAnusha Barber MD Work Phone: start: 10-02-2022 End: 37-74-7530EXVZFNIY KNEE TOTALAnusha Barber MD Work Phone: start: 60-84-7557QFUS GLUCOSE BLOODAnusha Barber MD Work Phone: start: 08-34-6003Zeka-cov-2 detection by dna/rnaAnusha Barber MD Work Phone: start: 09-26-2022 End: 90-48-9768Wmkqsgmd therapy evaluation low complex 20 minsAnusha Barber MD Start: 09-26-2022 End: 32-99-0353Pymhtfove actvity direct pt contact each 15 Sebas Barber MD Start: 09-03-2022 End: 16-39-4378Wrinj hip unilateral with pelvis 2-3 viewsAnusha Barber MDStart: 07-09-2022 End: 88-48-5637Ohmsjpxjytjzyx aspir&/inj major jt/bursa w/o Vi Barber MD Start: 07-09-2022 End: 23-18-2099Ouaupcnbgphua acet inj NOSAnusha Barber MDStart: 05-12-2022 End: 65-91-1313Otsygfstmfspdp aspir&/inj major jt/bursa w/o Vi Barber MD Start: 05-12-2022 End: 91-72-3367Bmpsoblkjx examination knee 3 viewsAnusha Barber MDStart: 27-03-1410CrvhkzdemmchbyrvOfewp: 31-07-1294Prpwy colonoscopyKaitlin E Schwerer Work Phone: AppendectomyKaitlin E [...] Work Phone: Plan of Treatment DateCare ActivityDetailAuthorStart: 10-48-5863GMV VACCINE (1 - 1-dose 75+ series)RSV VACCINE (1 - 1-dose 75+ series)[facility]art: 30-41-5530DVS test (Diabetes, CKD 3-4, OR last GFR 15-59)GFR test (Diabetes, CKD 3-4, OR last GFR 15-59)[facility] HospitalStart: 86-18-4987Xfzcxdrzv vaccinationINFLUENZA VACCINE (#1)[facility] Columbustart: 04-11-2025 Bacteria identified in Urine by CultureUrine [facility] Hospitaltart: 80-40-5427Wpxbe cultureAshtabula County Medical Centertart: 03-17-2025 End: 10-93-4771Mkvfsie encounter procedureNOMS ENT [facility]INGtart: 03-14-2025 End: 15-19-9116Nignatq encounter hjfisddzr91/27/2025 3:00 PM EDT Office Visit [facility] [address] [place], [id number] ConstantinoDaphney S, AUD [address] [facility] [place] [address] [facility] BENITEZCT AUDIOLOGYStart: 01-18-2025 End: 82-21-7502Epaooqv encounter fmxjvkdox20/02/2025 10:20 AM EDT Office Visit [facility] [address] [facility] [address] [place] [id number] Leah Barrera MD [address] [facility] [address] [place], [place] [address] ArrivedNOMS CI ENTComment on above:ArrivedStart: 41-42-0958Bhfmkn Wellness Visit (Medicare Advantage)Annual Wellness Visit (Medicare Advantage)Bon Sheyla Redbeaconcori [facility] HospitalStart: 67-38-4850MSALP-19 Vaccine ( season)COVID-19 Vaccine ( season)Bon Sheyla Redbeaconcori [facility] Start: 67-36-6620HgkptMarisol Padroniance [facility] Work Phone: Start: 05-25-2024 reactive protein [Mass/volume] in Serum or PlasmaC-Reactive Protein ([id number]), Added on: Xvb-01-0236SojnhGwqfsrtq of [place]Start: 60-94-7836Exrwi Risk AssessmentFalls Risk AssessmentWayne Memorial HospitalStart: 70-38-8923Xoxcvpaferrd/CHF/CAD Annual BMP Blood Test Hypertension/CHF/CAD Annual BMP Blood TestTrinSCI-Waymart Forensic Treatment CenterStart: 12-84-9467Gsqnf Risk AssessmentFalls Risk AssessmentWayne Memorial HospitalStart: 10-04-2023 Hypertension/CHF/CAD Annual BMP Blood TestHypertension/CHF/CAD Annual BMP Blood TestTrinSCI-Waymart Forensic Treatment CenterStart: 59-35-8359ZPK, Provider: Luis Castanon, Status: Pen, Time: 11:20 AMFUV, Provider: Luis Castanon, Status: Pen, Time: 11:20 AMMP-[facility] 250 DO Work Phone: Start: 06-29-2023 reactive protein [Mass/volume] in Serum or PlasmaC-Reactive Protein, Quant ([id number]), Ordered on: [facility] [place]Start: 28-23-3198Exqdanoghwv sedimentation rate Sedimentation Rate-Westergren ([id number]), Ordered on: Quc-47-2931QstdcAtgyacjw of [place]Start: 56-32-4255WZQ With Differential/Platelet ([id number]), Ordered on: Svk-76-1737PmldxExrkxgnr of [place]Start: 70-12-5731Rrkskwturl A1c measurement Diabetes: Hemoglobin M3NVSELCedar County Memorial HospitalStart: 63-76-8768Gtsargknix of knee, Left (), Added on: Uug-08-6203EmvkmGycffgfq of [place]Start: 68-75-5188PDS, Provider: Luis Castanon, Status: Pen, Time: 2:30 PMMP-[facility] 250 DO Work Phone: Start: 04-60-8077Mafzvwgotm depression screening assessmentDepression ScreeningTrinSCI-Waymart Forensic Treatment CenterStart: 62-84-6782Xtzufnicd C screeningHepatitis C ScreeningTrinmercy health defiance hospital HealthStart: 02-43-2289Qmzzm panel Cholesterol Screening (Lipid Panel)[facility] HospitalStart: 12-05-2022Medicare Annual Wellness VisitMedicare Annual Wellness VisitTrinSCI-Waymart Forensic Treatment CenterStart: 27-28-4888Mupkxyzkj for malignant neoplasm of breastBreast Cancer Screening [facility] HospitalStart: 88-73-0791Jvhlcqpjr for malignant neoplasm of colon Colorectal Cancer Screening: ColonoscopyTrinSCI-Waymart Forensic Treatment CenterStart: 65-30-2267Cwdzozxij for osteoporosisOsteoporosis Screening (Bone Density Screening)[facility] Start: 56-01-7042Szssop Influencers of Health ScreeningSocial Influencers of Health ScreeningTrinSCI-Waymart Forensic Treatment CenterStart: 59-49-3905Vjcrsts referralReferrals: DME LTKA RevOrthoAlliance [facility] Regional HospitalStart: 05-27-2022 End: 96-14-0613Bgvzexgti department patient visitDeparted EmergencyBellevue Hospital Ctr-Emergency RoomStart: 09-10-0078IrdwfAodkazxs [facility]: 83-97-0166FsbpcoopqBellevue Hospital Ctr Work Phone: Start: 91-33-7931TqaymclorBellevue Hospital Ctr Work Phone: Start: 44-88-1136BVHNG-19 Vaccine (3 - Booster for Pfizer series)COVID-19 Vaccine (3 - Booster for Pfizer series)[facility] Start: 22-16-7109EGSZN-19 Vaccine (3 - Pfizer series)COVID-19 Vaccine (3 - Pfizer series)[facility] HospitalStart: 97-75-6133Bfawtbwsjun Syncytial Virus (RSV) or age 60 yrs+ (1 - Risk 60-74 years 1-dose series)Respiratory Syncytial Virus (RSV) or age 60 yrs+ (1 - Risk 60-74 years 1-dose series)[facility]: 63-83-7661Ujslibwfy for osteoporosisDEXA (modify frequency per FRAX score)[facility]: 2005 Shingles vaccine (1 of 2)Shingles vaccine (1 of 2)[facility]: 39-98-3931Dnzyyz vaccine hzv live for subcutaneous useZOSTER (SHINGLES) VACCINE (1 of 2)[facility] Centertart: 77-36-6219Tckfmx Vaccines (1 of 2) Zoster Vaccines (1 of 2)[facility]: 11-47-1306Rhdbpnpav for malignant neoplasm of colonHenrico [facility]' [facility]: 56-16-6764Yyjyo panelLIPID SCREENINGOhioHealth Nelsonville Health Centertart: 58-65-0699Eawpvedck for malignant neoplasm of breastBon [facility]: 06-83-7469Fvoksplot for malignant neoplasm of cervixCERVICAL CANCER SCREENING DISCUSSIONOSGlenbeigh Hospitaltart: 09-98-8967ZCmK,Tdap,and Td Vaccines (1 - Tdap)DTaP,Tdap,and Td Vaccines (1 - Tdap)[facility]: 93-23-9759VPgK/Tdap/Td vaccine (1 - Tdap)DTaP/Tdap/Td vaccine (1 - Tdap)[facility]: 1974 Third diphtheria, tetanus and acellular pertussis (DTaP) vaccinationTDAP (ADULT) [facility] Centertart: 82-12-3126Trolo screening for proteinDiabetes: Urine Protein ScreeningRusk Rehabilitation Center: 26-31-0430Jfevxmxa screening Diabetic retinal examHenrico [facility]' Hospital[facility]: 54-22-4179Pghwpikff C screeningHepatitis C screenHenrico [facility]' [facility]: 75-35-2351Gtckc screening for proteinDiabetic Alb to Cr ratio (uACR) testHenrico Doctors' Hospital—[facility]: 20-61-0926Trkyovvnty ScreenDepression ScreenHenrico [facility]' [facility]: 60-59-8415Betetwsy foot examinationDiabetic foot examHenrico [facility]' [facility]: 32-10-1092Zttdhqpz screeningDiabetes: Retinopathy Screening [facility] HealthcareStart: 51-60-4680Hlfjcuiedr A1c ompdkpflnoxM4I test (Diabetic or Prediabetic)[facility] HospitalStart: 52-78-1554Xsbjn panelLipidsInova Fair Oaks HospitalStart: 61-06-7954Jqpbthimi C screeningHEPATITIS C VIRUS SCREENINGOSGlenbeigh Hospitaltart: 1955Medicare Annual Wellness (AWV)Medicare Annual Wellness (AWV)[facility] HealthcareStart: 88-18-8087Tlcbfsugw for malignant neoplasm of colonNOMS HealthcareStart: 19-57-4636Oodqglugu for osteoporosisDEXA SCAN DISCUSSIONOSGlenbeigh Hospitaltart: 1955 Tetanus vaccinationTETANUSProMedica Defiance Regional HospitalComprehensive metabolic 2000 panel - Serum or [facility] Work Phone: Crystals, Body FluidCrystals, Body Fluid Lab Routine 11/14/2024 10:22 AM [facility] Work Phone: Culture, Anaerobic and AerobicCulture, Anaerobic and Aerobic Microbiology Routine 11/14/2024 10:22 AM [facility] Ferritin [Mass/volume] in Serum or [facility] Work Phone: Fungus identified in Skin by CultureTrinity Health Work Phone: Fungus identified in Skin by CultureTrinity Health Work Phone: Mycobacterium sp identified in Unspecified specimen by Organism specific cultureTrinity HealthMycobacterium sp identified in Unspecified specimen by Organism specific cultureTrinity HealthPatient Education Urinary Tract Infection, Adult EDBellevue Hospital Ctr Work Phone: Patient [facility] Work Phone: Renal function 2000 panel - Serum or [facility] Immunizations Immunization DateImmunizationNotesCare IewsptjmMdukmaxg36-88-2966xfukifklj virus vaccine, unspecified formulationVlad Joel MD Work Phone: OS[facility]10-20-2022Fluad Quadrivalent 0.5 ML Intramuscular Prefilled SyringeDaniel A Sosa Work Phone: [phone]-IdzcsJoanna V[place] [address] DO Work Phone: [phone]UH-47 Vaccine Pfizer - Documentation Purposes OnlyChristopher Agueda Other [facility] CenterComment on above: Series:11-40-4310IEXAW Vaccine Pfizer - Documentation Purposes Only Christopher Agueda Other [facility] CenterComment on above: Series:26-56-9129hevppdnhl, injectable, quadrivalent, preservative freeDaniel A Sosa Work Phone: [phone]-RyvudJoanna [place] [address] DO Work Phone: [phone]b virus vaccine, unspecified formulationKaitlin E Schwerer Work Phone: [phone]-KaazoJoanna V[place] [address] DO Work Phone: [phone]qwjb polysaccharide vaccine, 23 valentChristopher Agueda Other [facility]10-19-2020Seasonal trivalent influenza vaccine, adjuvanted, preservative freeKaitlin E Schwerer Work Phone: [phone]-HncrpJoanna V[place] [address] DO Work Phone: [phone]m, injectable, [place]in [place] Canine Kidney, preservative free, quadrivalentKaitlin E Schwerer Work Phone: [phone]-RuyhhFederal [facility] Center, [place] 250 DO Work Phone: [phone]ljnotip polysaccharide vaccine, 23 valentKaitlin E Schwerer Work Phone: [phone]-XqoitFederal Medical Center, [place] 250 DO Work Phone: [phone]qec virus vaccine, unspecified formulationKaitlin E Schwerer Work Phone: [phone]-HlhyzSt. Elizabeths Medical [facility] 250 DO Work Phone: [phone] [phone]cuex, seasonal, injectableDaniel A Sosa Work Phone: [phone]-AydahSt. Elizabeths Medical Center 250 DO Work Phone: [phone]oekkhahxasee polysaccharide vaccine, 23 valentChristopher Agueda Other [facility]10-01-2018Influenza, injectable, [place] Canine Kidney, quadrivalent with preservativeKaitlin E Schwerer Work Phone: [phone]-RtgxrSt. Elizabeths Medical Center 250 DO Work Phone: [phone]yks conjugate vaccine, 13 valent Christopher Agueda Other [facility]11-02-2017influenza, injectable, quadrivalent, preservative freeChristopher Agueda Other [facility]03-01-2012 pneumococcal polysaccharide vaccine, 23 valentChristopher Agueda Other [facility] Payers DatePayer CategoryPayerPolicy [id number] (Managed Care)MEDICARE AETNA HMO [id number] 2018Medicaid .[id number] 2008Medicare1960Medicaid [id number] [id number] [id number] [id number] 2.16840.1.534159.3.57[id number] 2.16840.1.293247.3.57[id number] 2.16840.1.181392.3.57[id number] 2.840.1.137187.3.57[id number] 2.840.1.748338.3.57[id number] 2.16840.1.323717.3.57[id number] 2.16840.1.199144.3.57[id number] 2.16840.1.438378.3.57[id number] 2.16840.1.260640.3.579.2.0[id number] 2.16840.1.506389.3.57[id number] 2.16840.1.855010.3.579.2.84457-27-0830Zxqekxg0090968 2.16840.1.367208.3.579.2.76615-69-5065Ylhaovf2372766 2.16.840.1.627026.3.579.[id number] 2.16.840.1.410216.3.57[id number] 2.16.840.1.366330.3.57[id number] 2.16.840.1.819272.3.579.2.39008-62-5297Jmeuccr0224851 2.16.840.1.886887.3.579.2.40236-60-4636Gjgvpse7848245 2.16.840.1.466392.3.579.2.39360-95-5613Juoeeow1391396 2.16840.1.474623.3.57[id number] 2.16.840.1.263695.3.579.2.27032-73-6243Uqrlnsa8621478 2.16.840.1.355949.3.579.2.37748-11-6028Ujvxrrl9417084 2.16.840.1.856436.3.579.2.66982-49-7085Jlkrvmf5655311 2.16.840.1.853235.3.57[id number] 2.16.840.1.406866.3.579.2.14779-45-0578Vzhjanj27678875 2.16.840.1.312359.3.579.2.95637-47-4309Ybtldre18362759 2.16.840.1.868436.3.579.2.27708-17-2231Pwihkln4489267 2.16.840.1.037383.3.579.2.257457-50-4642Xdjting5732480 2.16.840.1.502119.3.579.2.732152-70-9286Orygyys5089916 2.16.840.1.288473.3.579.[id number] 2.16.840.1.444207.3.579.2.9[id number] 2.16.840.1.400221.3.579.2.74584-95-7250Ouxlvvb340518349 2.16.0.1.933280.3.57[id number] 2.16.0.1.541446.3.579.2.57135-11-7801Jzjnfup40280588 2..0.1.341936.3.579.[id number] 2..0.1.29[id number] 2..0.1.986523.19Private Health InsuranceUnessentia health Healthcare Dual Compl [id number]-pegDdou Pay [id number] Social History DateTypeDetailFacilityStart: 01-05-2025 End: 27-54-1541Eg illicit drug useNo illicit drug useInova Fair Oaks Hospital Comment on above:2 cups of coffee daily;Rarely;high school smoker;Rarely 1-2 times yearly;Start: 01-05-2025 End: 25-00-5767Ryr Assigned At BirthInova Fair Oaks HospitalStart: 05-27-2022 End: 41-11-2620Bhtplkb smoking status NHISEx-smoker (finding)[facility] Centertart: 97-38-9359Nhh Assigned At BirthFeWexner Medical CenterHistory of tobacco useCurrent smokerTrinity HealthHistory of tobacco useCigarette SmokerTrinity HealthStart: 10-02-2022 End: 73-27-1256Szmljmm intakeLifetime non-drinker (finding)[facility] HealthStart: 41-00-6892Tqn Assigned At BirthNot on fileTrinity HealthStart: 09-22-2022 End: 96-83-8148Bedolbni to SARS-CoV-2 (event)Not sureTrinity HealthStart: 03-19-2023 End: 36-47-1194Hcqgvyc use and exposureSmokeless tobacco non-userTrinity Health Start: 03-23-2024 End: 33-56-2245Wvptwee smoking status NHISUnknown if ever smokedOrthoAlliance of OhioStart: 23-74-7476Ggvesbx intakeAlcohol Use DetailsOrthoAlliance of [place] Start: 30-79-8376Aszghy OrientationStraight or heterosexualOrthoAlliance of [place] Start: 22-97-3273Zgkjnn OrientationChoose not to discloseOrthoAlliance of [place] Start: 10-27-2024 End: 98-47-4489DnsDgxfvk (finding)[facility] Centertart: 02-03-2024 End: 00-07-3570Nvwersn smoking status NHISNever smoked tobaccoBon [facility] HealthStart: 02-03-2024 End: 69-22-7868Myimvfiyq beverage intakeCurrent drinker of alcohol (finding)YidioHas the electric, gas, oil, or water company threatened to shut off services in your home in past 12MoNoBon [facility]osaic HealthHow often to you have a drink containing alcohol?Monthly or lessBon knowNormal How many standard drinks containing alcohol do you have on a typical day?1 or 2 Bon [facility] HealthHow often do you have 6 or more drinks on 1 occasion? NeverBon knowNormal(I/We) worried whether (my/our) food would run out before (I/we) got money to buy more.Never trueInova Fair Oaks HospitalStart: 75-45-4454Ts the past 12 months, has lack of transportation kept you from medical appointments or from getting medications?NoInova Fair Oaks Hospital Start: 32-20-3739Zxkwsrc CommentOcassionallyInova Fair Oaks HospitalStart: 62-49-6948Qgimcuu CommentOccasionllMosaic [facility] St[facility] Medical Equipment Procedure CodeEquipment CodeEquipment Original TextEquipment IdentifierDatesCps Artcsurf 16mm Lt 6-9 Ef - Sn/A - [id number](21)N/A, [id number] FDAStart: 10-02-2022 Asf Cps 18mm Ve L 6-9 Ef - Sn/A - [id number]/SN/A, [id number] FDAStart: 03-19-2023 Functional Status DateAssessmentResultFacilSpotsylvania Regional Medical Center Clinical Notes 07-10-2021 to 07-13-2025 Note Date & WnkdLhoeLocitkez91-39-8798 NoteProgress Note-Physician Patient: RENUKA PADRON Age: 69 years Sex: Female : 1955 Associated Diagnoses: None Author: Caleb BRYANT, Colt Rosenberg Postoperative Information Postoperative disposition: Postoperative disposition: To PACU. Optimetrix number: Optimetrix number [id number]. Anesthetic utilized: General. Health Status Allergies: Allergic [...] Stable. Plan Transfer/Discharge: Transfer/Discharge Discharge when meets criteria.[facility] HospitalComment on above:Result Comment: Electronically Signed By: Caleb BRYANT, Colt Rosenberg\.br\Date and Time Signed: 07/13/25 09:46 UEQ45-38-9785 Note Patient Education - Text Gastroenterology Esophageal [...] including vitamins, herbs, eye drops, creams, and tkpr-nvd-dhzplzs medicines. ??? Any problems you or family [...] tells you to take them. ? Taking uogs-pha-filopuq medicines, vitamins, herbs, and supplements. ??? Follow [...] Follow these instructions at home: ??? Take lehh-cyy-gqpqjxs and prescription medicines only as told by [...] to have a responsible (more content not included)...[facility]09-25-2025 NoteEndoscopic Procedure Report - Other Patient: RENUKA [...] identified, normal examined esophagus, empiric dilation with Delcdi 56 Bahamian was done, no resistance, post dilation there [...] examined esophagus, empiric dilation with Delcid 56 Bahamian was done, no resistance, post dilation there was no mucosal disruption or wall defect 2. Evidence of surgery in the stomach with Joellen-en-Y anatomy, healthy looking except for mild inflammation at the anastomosis, nonspecific, no ulcers or erosions noted 3. Normal examined efferent jejunal loop Recommendations: -Resume previous diet -Resume home medications -Follow-up in GI clinic as neededOhiohealth Mansfield HospitalComment on above: Result Comment: Electronically Signed By: Darci BRYANT, Glen Ta\.br\Date and Time Signed: 07/13/25 09:00 EDTOther Comment: Missing Attachment - attachment storage system not supported [id number] Can be viewed in source system Missing Attachment - attachment storage system not supported [id number] Can be viewed in source systemMissing Attachment - attachment storage system not supported [id number] Can be viewed in source systemMissing Attachment - attachment storage system not supported 9067423 Can be viewed in source systemMissing Attachment - attachment storage system not supported 3244796 Can be viewed in source systemMissing Attachment - attachment storage system not supported 2098249 Can be viewed in source acsngy32-01-1364 NoteProgress Note-Physician Patient: RENUKA PADRON Age: 69 [...] 120 tab(s), Refills(s) 0, Pharmacy: [facility] Documented Medications Documented Fiber Tabs: 1 tab, [...] Refills(s) 0, Prophylaxis fluticasone 0.05 mg/inh Nasal [place]: 2 spray(s), Nasal, Daily, Refill(s) 0, Allergy [...] tab, Oral, Daily fluticasone 0.05 mg/inh Nasal [place] 2 spray(s), Nasal, Daily gabapentin 300 mg [...] CHF (congestive heart failure) / SNOMED CT 93020914 / Confirmed COPD (chronic obstructive pulmonary disease) / SNOMED CT 98454711 / Confirmed Hypertension / SNOMED CT 7722422924 / Confirmed Kidney failure / SNOMED CT 10079569 / Confirmed, Active Problems (4) CHF (congestive heart failure) COPD (chronic obstructive pulmonary disease) Hypertension Kidney failure Histories Past Medical History: No active or resolved past medical history items (more content not included)... [facility] HospitalComment on above:Result Comment: Electronically Signed By: Caleb [...] 120 tab(s), Refills(s) 0, Pharmacy: [facility] Documented Medications Documented Fiber Tabs: 1 tab, [...] Refills(s) 0, Prophylaxis fluticasone 0.05 mg/inh Nasal [place]: 2 spray(s), Nasal, Daily, Refill(s) 0, Allergy [...] tab, Oral, Daily fluticasone 0.05 mg/inh Nasal [place] 2 spray(s), Nasal, Daily gabapentin 300 mg [...] CHF (congestive heart failure) / SNOMED CT 18930576 / Confirmed COPD (chronic obstructive pulmonary disease) / SNOMED CT 08767241 / Confirmed Kidney failure / SNOMED CT 81954165 / Confirmed Hypertension / SNOMED CT 8037261070 / Confirmed Histories Past Medical History: No active or resolved past medical history items have been selected or recorded. Family History: Patient was adopted. History is unknown. Procedure history: Colonoscopy (601754279) on 06/01/2024 at 68 Years. Esophagogastroduodenoscopy (975207769) on 06/01/2024 at 68 Years. EGD (esophagogastroduodenoscopic) electrohydraulic lithotripsy of bezoar in stomach (8674173600) on06/15/2019 at 63 Years. Colonoscopy (252025889) on 08/02/2018 at 63 Years. Appendicectomy (257313018). Tonsillectomy (086075551). Gastric bypass (4964943442). Both knees (02368193). Tendonitis of left ankle (660413977057416). Caesarean section (23744687). Social History Social & Psychosocial Habits Alcohol 06/13/2025 Risk Assessment: Low Risk Substance Abuse 06/13/2025 Risk Assessment: Denies Substance Abuse Tobacco (more content not included)...[facility] HospitalComment on above:Result Comment: Electronically Signed By: Darci BRYANT, Glen Ta\.juanita\Date and Time Signed: 07/13/25 08:54 VBS88-30-5429 History of Present illness Narrative* Leonel Wharton MD - 04/28/2025 12:00 PM EDT Chief complaint: Chief Complaint Patient presents with Left Knee - Pain 69 y.o. female 2007 L TKAand 2021 L TKRevsion (Dr. Barber in [place]). Had a cat scratch infection in 2022 [...] aseptic results. Patient was offered referral [facility] infectious disease for second opinion, which patient [...] rule that out 1st. Vlad Joel M.D. Abattoir Supervisor Electrifier Operator Adult Reconstructive Surgery Service Department of Orthopaedics [facility] documented in this encounterProMedica Defiance Regional Hospital05-30-2025 History of Present illness Narrative* Leah Barrera MD - 03/17/2025 11:20 AM EDT Subjective Patient ID: Renuka Padron is a 69 y.o. female who presents for Thyroid Nodule (Follow up ultrasoundTBH 01/24/25 ) and Ear Problem (Audio 03/14/25) Audio shows delfino moderate to severe SNHL and normal tymps. Pt requests referral to Dr Chase. Previously followed by Dr in [place]. US shows a 59i20w56so RT nodule compared to 62e42t06qe one year ago. 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 ([facility]) 10/02/2022 LPRD (laryngopharyngeal reflux disease) 02/03/2024 Morbid obesity ([facility]) 03/03/2013 Multinodular goiter ([facility]) 02/03/2024 Obesity, Class III, BMI 40-49.9 (morbid obesity) ([facility]) 06/30/2017 Obstructive sleep apnea syndrome 06/05/2016 Primary osteoarthritis of left hip 02/03/2024 Osteoarthritis of knee 02/03/2024 Pulmonary HTN ([facility]) 07/06/2017 Restrictive lung disease 07/06/2017 Sciatica 02/03/2024 Thrombophlebitis 02/03/2024 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 ([facility]) 02/03/2024 Thrombophlebitis of left leg ([facility]) 02/03/2024 Urinary tract infection 02/03/2024 Abdominal infection ([facility]) 02/03/2024 Viral syndrome 02/03/2024 Diabetes mellitus ([facility]) 01/18/2025 Essential hypertension ([facility]) 02/18/2012 Fibromyalgia 07/06/2017 Resolved Ambulatory Problems Diagnosis Date Noted No Resolved Ambulatory Problems Past Medical History: Diagnosis Date Anxiety Asthma CAD (coronary artery disease) ([facility]) CHF (congestive heart failure) ([facility]) Diabetes 1.5, managed as type 2 ([facility]) ([facility]) GERD (gastroesophageal reflux disease) Hoarseness HTN (hypertension) ([facility]) JEREMY (obstructive sleep apnea) Pulmonary hypertension ([facility]) PVD (peripheral vascular disease) ([facility]) Seasonal allergies Stage 4 chronic kidney disease ([facility]) Vitamin D deficiency Past Surgical History: Procedure [...] then prn if stable. documented in this encounterCedar County Memorial [id number] History of Present illness Narrative* BLAINE Ramirez - 03/14/2025 3:00 PM EDT History: [...] 1. Dr. Barrera 03-17-2025 documented in this encounterCedar County Memorial [id number] History of Present illness Narrative* Leah Barrera MD - 01/18/2025 10:20 AM EDT Subjective Patient ID: Renuka Padron is a 69 y.o. female who presents for Swollen Glands Pt reports her glands were swollen, but have gone down now. Also c/o a 1 yr h/o delfino ear fullness. Family History Adopted: Yes Active Ambulatory Problems Diagnosis Date Noted Thyroid nodule ([facility]) 02/03/2024 LAD (lymphadenopathy) of left cervical region 02/03/2024 Abnormal results of cardiovascular function studies 03/03/2013 Acute renal insufficiency 02/03/2024 Allergic rhinitis 02/03/2024 Anemia 02/18/2012 Atrial septal defect within oval fossa 03/03/2013 Cellulitis 02/03/2024 Chronic combined systolic and diastolic congestive heart failure (CMS/HCC) 07/06/2017 Chronic right-sided congestive heart failure (CMS/HCC) 09/23/2023 CKD (chronic kidney disease), stage III (HCC) ([facility]) 09/23/2023 COPD (chronic obstructive pulmonary disease) (CMS/HCC) 03/17/2023 Atherosclerosis of artery 02/03/2024 Coronary atherosclerosis ([facility]/HCC) 03/03/2013 Cramps of left lower extremity [...] to other internal joint prosthesis, initial encounter ([facility]) 03/21/2023 Iron deficiency anemia 02/03/2024 Lingual tonsil hypertrophy 02/03/2024 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 ([facility]) 10/02/2022 LPRD (laryngopharyngeal reflux disease) 02/03/2024 Morbid obesity ([facility]) 03/03/2013 Multinodular goiter ([facility]) 02/03/2024 Obesity, Class III, BMI 40-49.9 (morbid obesity) ([facility]) 06/30/2017 Obstructive sleep apnea syndrome 06/05/2016 Primary osteoarthritis of left hip 02/03/2024 Osteoarthritis of knee 02/03/2024 Pulmonary HTN ([facility]) 07/06/2017 Restrictive lung disease 07/06/2017 Sciatica 02/03/2024 Thrombophlebitis 02/03/2024 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 ([facility]) 02/03/2024 Thrombophlebitis of left leg ([facility]) 02/03/2024 Urinary tract infection 02/03/2024 Abdominal infection ([facility]) 02/03/2024 Viral syndrome 02/03/2024 Diabetes mellitus ([facility]) 01/18/2025 Essential hypertension ([facility]) 02/18/2012 Fibromyalgia 07/06/2017 Resolved Ambulatory Problems Diagnosis Date Noted No Resolved Ambulatory Problems Past Medical History: Diagnosis Date Anxiety Asthma CAD (coronary artery disease) ([facility]) CHF (congestive heart failure) ([facility]) Diabetes 1.5, 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[facility]) GERD (gastroesophageal reflux disease) Hoarseness HTN (hypertension) ([facility]) JEREMY (obstructive sleep apnea) Pulmonary hypertension ([facility]) PVD (peripheral vascular disease) ([facility]) Seasonal allergies Stage 4 chronic kidney disease ([facility]) Vitamin D deficiency Past Surgical History: Procedure [...] F/U. Due for thyroid US. Schedule at [facility] documented in this encounterCedar County Memorial [id number] History of Present illness Narrative* Estrella Angelo [...] plan. Estrella Angelo MD Orthopaedic Surgeon [facility] 01/06/2025 11:41 AM * Marilyn Weinstein RN [...] Chemistry: No results found for: PHART , HJP7YJF , PO2ART , O6BKBASC , KUR1JPL , PBEA , NBEA VITALS Pulse: 51 [...] arrousable, assessment and vitals initiated, patient instructed personal lines agent light use and available to patient, patient [...] at bedside. * Corinne Gunter APRN - CLOTH FOLDER MACHINE - 01/05/2025 9:23 AM EDT Have been [...] for the anesthesia. Patient was contacted by physician underwriter. Patient does have a motion study analyst (Dr Castanon), but it has been more [...] call me back. documented in this encounterBon [facility] Discharge instructions* Discharge Instructions* Kaylee Esqueda [...] most local grocery stores, pharmacies, and chain [employer]-stores. If you have any questions about your diet or nutrition, call the hospital and ask for the dietitian. General diet documented in this encounterBon [facility]08-[facility] NoteProgress Note-Physician Patient: RENUKA PADRON Age: 68 [...] # 120 tab(s), Refills(s) 0, Pharmacy: [facility] Documented Medications Documented Fiber Tabs: 1 [...] Refills(s) 0, Prophylaxis fluticasone 0.05 mg/inh Nasal [place]: 2 spray(s), Nasal, Daily, Refill(s) 0, Allergy [...] tab, Oral, Daily fluticasone 0.05 mg/inh Nasal [place] 2 spray(s), Nasal, Daily gabapentin 300 mg [...] CHF (congestive heart failure) / SNOMED CT 26404589 / Confirmed COPD (chronic obstructive pulmonary disease) / SNOMED CT 95513262 / Confirmed Hypertension / SNOMED CT 6736301481 / Confirmed Kidney failure / SNOMED CT 98107228 / Confirmed Physical Examination Vital Signs 06/01/2024 [...] EDT Heart Rate Mon (more content not included)...[facility] HospitalComment on above:Result Comment: Electronically Signed By: Vlad Loera DO\.br\Date and Time Signed: 06/01/24 13:29 [id number] NotePatient Education - Text Endoscopy Care After Procedure Please read the instructions outlined below and refer to this sheet in the next few weeks. These discharge instructions provide you with general information on [facility] Your doctor may also give you [...] Document Re-Released: 03/29/2007 ExitCare? Patient Information ?2009 [employer] Standard. Colonoscopy Care After Surgery Please read the instructions outlined below and refer to this sheet in the next few weeks. These discharge instructions provide you with general information on caring [facility] Your doctor may also give you [...] that bowel contents c (more content not included)...[facility]08-14-[facility] NoteEndoscopic Procedure Report - Other Patient: RENUKA PADRON Age: 68 years Sex: Female : 1955 Associated Diagnoses: None Author: Glen Bejarano MD Pre-Procedure Procedure Date 06/01/2024 13:10:00 . Procedure Type: Colonoscopy. Procedure provider Performed by Glen Bejarano MD. Current history and physical Documented on chart. Reviewed. EGD (esophagogastroduodenoscopic) electrohydraulic lithotripsy of bezoar in stomach (6916771185) on06/15/2019 at 63 Years. Colonoscopy (199556326) on 08/02/2018 at 63 Years. Appendicectomy (167473310). Tonsillectomy (229756247). Gastric bypass (3965955487). Both knees (47153110). Tendonitis of left ankle (300182725370176). Caesarean section ().. Past Medical History No active or resolved past medical history items have been selected or recorded.. Family History Patient was adopted. History is unknown.. Procedure History EGD (esophagogastroduodenoscopic) electrohydraulic lithotripsy of bezoar in stomach (7111383526) on06/15/2019 at 63 Years. Colonoscopy (607349899) on 08/02/2018 at 63 Years. Appendicectomy (928495755). Tonsillectomy (132535274). Gastric bypass (1982633625). Both knees (59437508). Tendonitis of left ankle (234934659467505). Caesarean section ().. Colorectal neoplasm risk assessment [...] Refills(s) 0, Prophylaxis fluticasone 0.05 mg/inh Nasal [place]: 2 spray(s), Nasal, Daily, Refill(s) 0, Allergy [...] Procedure images: [id number]__[id number] (more content not included)...[facility] HospitalComment on above:Result Comment: Electronically Signed By: Darci BRYANT, Glen Ta\.br\Date and Time Signed: 06/01/24 13:11 EDTOther Comment: Missing Attachment - attachment storage system not supported [id number] Can be viewed in source system Missing Attachment - attachment storage system not supported [id number] Can be viewed in source systemMissing Attachment - attachment storage system not supported 2400246 Can be viewed in source systemMissing Attachment - attachment storage system not supported 3275389 Can be viewed in source systemMissing Attachment - attachment storage system not supported [id number] Can be viewed in source systemMissing Attachment - attachment storage system not supported 2392788 Can be viewed in source systemMissing Attachment - attachment storage system not supported 8879041 Can be viewed in source systemMissing Attachment - attachment storage system not supported [id number] Can be viewed in source system 06-01-2024 [...] examined esophagus. Empiric dilation with Delcid 54 Bahamian was done, no mucosal disruption was noted [...] examined esophagus. Empiric dilation with Delcid 54 Bahamian was done, no mucosal disruption was noted [...] pathology results, follow-up in GI clinic next availableOhiohealth Mansfield HospitalComment on above:Result Comment: Electronically Signed By: Darci BRYANT, Glen Ta\.br\Date and Time Signed: 06/01/24 12:35 EDTOther Comment: Missing Attachment - attachment storage system not supported [id number] Can be viewed in source system Missing Attachment - attachment storage system not supported 6872568 Can be viewed in source systemMissing Attachment - attachment storage system not supported 0363016 Can be viewed in source systemMissing Attachment - attachment storage system not supported 5500085 Can be viewed in source systemMissing Attachment - attachment storage system not supported 9763159 Can be viewed in source systemMissing Attachment - attachment storage system not supported 2223803 Can be viewed in source systemMissing Attachment - attachment storage system not supported 0961086 Can be viewed in source systemMissing Attachment - attachment storage system not supported 4221980 Can be viewed in source system 06-01-2024 [...] Refills(s) 0, Prophylaxis fluticasone 0.05 mg/inh Nasal [place]: 2 spray(s), Nasal, Daily, Refill(s) 0, Allergy [...] tab, Oral, Daily fluticasone 0.05 mg/inh Nasal [place] 2 spray(s), Nasal, Daily gabapentin 300 mg [...] CHF (congestive heart failure) / SNOMED CT 72364046 / Confirmed COPD (chronic obstructive pulmonary disease) / SNOMED CT 48291715 / Confirmed Hypertension / SNOMED CT 1097753869 / Confirmed Kidney failure / SNOMED CT 09142921 / Confirmed, Active Problems (4) CHF (congestive heart failure) COPD (chronic obstructive pulmonary disease) Hypertension Kidney failure Histories Past Medical History: No active or resolved past medical history items have been selected or recorded. Family History: Patient was adopted. History is unknown. Procedure history: EGD (esophagogastroduodenoscopic) electrohydr (more content not included)... [facility] HospitalComment on above:Result Comment: Electronically Signed By: Vlad Loera DO.br\Date and Time Signed: 06/01/24 11:29 EDT 11-03-2023 Evaluation note* Encounter Date Diagnosis Assessment Notes Treatment Notes Treatment Clinical Notes Oct, Asthma, moderate persistent (ICD -10 - J45.40) [employer] Other 09-19-2023 Evaluation note* Encounter Date Diagnosis Assessment Notes Treatment Notes Treatment Clinical Notes Jun, Asthma, moderate persistent (ICD -10 - J45.40) Jun,Morbid obesity (ICD-10 - E66.01) Jun,OSA (obstructive sleep apnea) (ICD-10 - G47.33) Jun,llergic rhinitis (ICD-10 - J30.9) Jun,ERD (gastroesophageal reflux disease) (ICD-10 - K21.9) [employer] Other 06-07-2023 History of Present illness Narrative* Jocelyn Muller RN - 03/25/2023 2:44 PM EDT Verbal report called and provided to receiving nurse, MARIBELL Alford at [facility]. Patient's current status and most recent [...] Pt. met goals for discharge to a fdc facility. Discussed with thepatient the last pain medication and when the next dose is due. Pt. received written discharge instruction packet to be taken to the fdc facility. Pt. is discharged per the general [...] NOTE Patient Name: Renuka Padron MR #: [id number] Hospital Day: 7 Assessment and Plan: 1. [...] Given her debility she will discharge to [facility] to receive meropenem 2 g every 12 hours for 6 weeks. We will follow-up with her at that time and hopefully transition her to a lengthy course of oral therapy. ECF Nursing Instructions: 1)Picc Care 2)Qmon CBC,SR,Creat,CRP, fax to Dr. Angelo [phone] 3)IV ATB for 42 days 4)Call Dr. [...] intravenous Every 8 hours 03/24/23 2341 05/05/23 1365 Subjective/Objective: Comfortable Review of Systems: I have [...] Care 2)Qmon CBC,SR,Creat,CRP, fax to Dr. Angelo [phone] 3)IV ATB for 42 days 4)Call Dr. [...] met and the pt is cleared by [employer]. * Nik Cates RN - 03/25/2023 9:28 AM EDT Call received from Addi at [facility] Discharge orders can be faxed to [phone]. Report [phone]. Addi indicated she was updated yesterday that transport will be around noon. * Evelyn Jose MD - 03/25/2023 8:16 AM EDT [address] [place] [address] Query Response Note PATIENT: RENUKA PADRON : 1955 ADMIT DATE: 03/21/2023 12:44 PM DISCH DATE: RESPONDING PROVIDER #: [id number] CDI RESPONSE TEXT: See PN CDI QUERY [...] Echo-Mildly reduced LV systolic function -02/24/17 Lexiscan FIRER MARINE-mildly diminished LV systolic function with an EF [...] -HTN -CKD Thank you, Chelsea Bearden RN, BALL POINT SPLITTER, CDI. cell: [phone]. Options provided: -- Respond - Create new [...] opiates, and antibiotics to surgical service. Disposition: senior living facility. Subjective Patient reports pain is currently [...] AMADO received a call from Addi at [facility] and they received precert. Facility will planto [...] AMADO received a call from Cindy at [facility] inquiring possible duration of IV [...] PM EDT AMADO spoke to Rosetta at [facility] and she confirmed the facility is still awaiting the precert from [facility]. Facility does request a repeat covid test day of discharge. CM will update the patient and also plan to complete a HENS and place in the discharge folder. * Amanda Gorman PTA - 03/24/2023 1:37 PM EDT [facility] Physical Therapy Treatment PT Discharge Recommendations: senior living facility placement Distance Ambulated (ft): 50 Device: [...] PT POC until patient is d/c from [facility]. 03/24/23 1337 General Family/Caregiver Present No [...] PT Plan Skilled PT PT Discharge Recommendations senior living facility placement Goals/Education Encounter Problems Encounter Problems [...] - 03/24/2023 11:13 AM EDT [facility] Physical Therapy Treatment PT Discharge Recommendations: senior living facility placement Distance Ambulated (ft): 50 Device: [...] PT POC until patient is d/c from [facility]. 03/24/23 1113 General Family/Caregiver Present No [...] PT Plan Skilled PT PT Discharge Recommendations senior living facility placement Goals/Education Encounter Problems Encounter Problems [...] Education Documentation Mobility Training, taught by Amanda Groman PTA at 03/24/2023 12:31 PM. Learner: Patient [...] service. Disposition: Planning to go to a fdc facility. Subjective Patient reports pain is currently [...] Call received from Addi in admissions at [facility]. Precert is still pending. Addi inquired if pt is wearing a CPAP. Per RT-pt is non-compliant and does not wear CPAP. * Renuka Mccabe, PT - 03/23/2023 12:37 PM EDT [facility] Physical Therapy Treatment PT Discharge Recommendations: senior living facility placement Distance Ambulated (ft): 50 Device: [...] CM made OB call to Сергей at [facility]-spoke to Addi in admissions- precert is still pending at this time. She has forwarded updated notes and will be in touch as soon as she hears anything. CM will continue to follow. * Renuka Mccabe PT - 03/23/2023 9:07 AM EDT [facility] Physical Therapy Treatment PT Discharge Recommendations: senior living facility placement Distance Ambulated (ft): 45 Device: [...] Plan for discharge to Subacute Rehab Facility ([facility]) when cleared by PT and medically stable * Julia Meredith RN - 03/23/2023 7:26 AM EDT CM has sent updated PT and progress notes to Сергей at [facility] via manual efax- [phone]-witha note checking on status of precert. CM [...] Disposition: Patient planning to go to a fdc facility. Subjective Patient reports pain is currently [...] NOTE Patient Name: Renuka Padron MR #: [id number] Hospital Day: 4 Assessment and Plan: 1. [...] - 03/22/2023 11:25 AM EDT [facility] Physical Therapy Treatment PT Discharge Recommendations: senior living facility placement Distance Ambulated (ft): 35 Device: [...] Plan for discharge to Subacute Rehab Facility ([facility]) when cleared by PT and medically stable * Amanda Horvath PT - 03/22/2023 10:05 AM EDT [facility] Physical Therapy Treatment PT Discharge Recommendations: senior living facility placement Distance Ambulated (ft): 30 Device: [...] IVFs, pulse oximetry, and supplemental oxygen for [id number] than 90%. Coronary Artery Disease ( I [...] Echo-Mildly reduced LV systolic function 02/24/17 Lexiscan FIRER MARINE-mildly diminished LV systolic function with an EF [...] NOTE Patient Name: Renuka Padron MR #: [id number] Hospital Day: 3 Assessment and Plan: 1. [...] - 03/21/2023 12:55 PM EDT [facility] Physical Therapy Treatment PT Discharge Recommendations: senior living facility placement Distance Ambulated (ft): 0, 30feet [...] AM EDT OB call to Сергей at [facility] [phone]. NN spoke with [facility]. Per [facility] admissions staff are out of the office until Thursday. CM will continue to follow. * Yasmin Beck PT - 03/21/2023 9:57 AM EDT [facility] Physical Therapy Treatment PT Discharge Recommendations: senior living facility placement Distance Ambulated (ft): 30 Device: [...] - 03/21/2023 8:52 AM EDT [facility] Case Management Rounding Note Patient Renuka Dunn [...] Plan for discharge to Subacute Rehab Facility ([facility]) when cleared by PT and medically stable [...] Echo-Mildly reduced LV systolic function 02/24/17 Lexiscan FIRER MARINE-mildly diminished LV systolic function with an EF [...] - 03/20/2023 2:03 PM EDT Rosetta from [employer] is requesting todays clinicals and manually faxed to her [employer] of [phone] * Haley He PTA - 03/20/2023 12:25 PM EDT [facility] Physical Therapy Treatment PT Discharge Recommendations: senior living facility placement Distance Ambulated (ft): 30 in [...] Date/Time User Outcome 03/20/23 1052 Haley He PLANT PHYSIOLOGY TEACHER Progressing Goal: Pt will ambulate x150 ft [...] 03/20/2023 10:31 AM EDT Rosetta called from [employer] at [facility] and she received the updated clinicals sent this morning andshe will begin precert. Patient updated. * Debbie Kapadia RN - 03/20/2023 9:56 AM EDT Called Rosetta at [facility] she is reviewing the referral now and faxed this mornings progress notes and PT note to her at [phone] * Haley He PTA - 03/20/2023 9:37 AM EDT [facility] Physical Therapy Treatment PT Discharge Recommendations: senior living facility placement Distance Ambulated (ft): 30 Device: [...] Plan for discharge to Subacute Rehab Facility ([facility]) when cleared by PT and medically stable [...] Echo-Mildly reduced LV systolic function 02/24/17 Lexiscan FIRER MARINE-mildly diminished LV systolic function with an EF [...] [facility]. Hypertension [...] and situation RESULTS : Hemoglobin A1c Order: [id number] Status: Final result Visible to patient: Yes (not seen) 0 Result Notes Component Ref Range & Units 1 d ago 6 mo ago Hemoglobin A1C <=5.6 % 5.7 High 5.6 CM Mean Bld Glu Estim. mg/dL 117 114 Resulting Agency [facility] Narrative Performed by: [facility] HbA1c values of 5.7-6.4 percent indicate [...] withoutdifficulty. Patient plans to discharge to a fdc facility. * Palmira Miller, PT - 03/19/2023 6:32 PM EDT [facility] Physical Therapy Evaluation PT Discharge Recommendations: senior living facility placement Distance Ambulated (ft): 30 Device: [...] loosening of internal left knee prosthetic joint ([facility]/HCC) Mechanical loosening of internal left knee prosthetic joint, subsequent encounter S/P left knee surgery Past Medical History: Diagnosis Date Anemia Arthritis Asthma CHF (congestive heart failure) ([facility]) Chronic kidney disease CKD 2/3 COPD (chronic obstructive pulmonary disease) ([facility]) Dental disease full dentures Diabetes mellitus ([facility]) DVT of leg (deep venous thrombosis) ([facility]) 2021 left leg GERD (gastroesophageal reflux disease) [...] 1-2 times per day PT Discharge Recommendations senior living facility placement PT - Evaluation Status Complete [...] PM EDT Followed up with Сергей at [facility]. . Admissions does have a skilled bed And obtained updated fax number and refaxed referral to [phone]. * Debbie Kapadia RN - 03/19/2023 5:19 PM EDT 03/19/23 1718 Discharge Planning Living Arrangements Children Support Systems Children Assistance Needed skilled care Type of Residence Private residence Patient expects to be discharged to: SNF Does the patient need discharge transport arranged? No Follow Up Needs/Requests none Initial Transition Plan Initial Transition Plan Chcf Facility Back up Transition Plan Back up Transition plan [facility] Facility Patient is planning to go to SNF for [facility] in [place]. Will place a referral. Son to transport [...] requesting rehab at discharge documented in this encounterWayne Memorial [id number] Consult note* Colt Angelo MD - 03/20/2023 3:58 PM EDTAssociated Order(s): IP CONSULT TO INFECTIOUS DISEASES Images from the original note were not included. INFECTIOUS DISEASES CONSULTATION NOTE Patient Name: Renuka Padron Admit Date: [id number] MR #: [id number] : 1955 Hospital Day: 2 Date of [...] progressively worsened. She went to go to [facility] on Thursday and pain was severe. 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 store to corn picker a few things and was able [...] Anemia Arthritis Asthma CHF (congestive heart failure) ([facility]) Chronic kidney disease CKD 2/3 COPD (chronic obstructive pulmonary disease) ([facility]) Dental disease full dentures Diabetes mellitus ([facility] DVT of leg (deep venous thrombosis) ([facility]) 2020 left leg GERD (gastroesophageal reflux disease) [...] high level of complexity. Colt Angelo MD [facility] [id number] Consult note* Colt Angelo MD - 03/20/2023 3:58 PM EDTAssociated Order(s): IP CONSULT TO INFECTIOUS DISEASES Images from the original note were not included. INFECTIOUS DISEASES CONSULTATION NOTE Patient Name: Renuka Padron Admit Date: [id number] MR #: [id number] : 1955 Hospital Day: 2 Date of [...] progressively worsened. She went to go to [facility] on Thursday and pain was severe. 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 store to corn picker a few things and was able [...] Anemia Arthritis Asthma CHF (congestive heart failure) ([facility]) Chronic kidney disease CKD 2/3 COPD (chronic obstructive pulmonary disease) ([facility]) Dental disease full dentures Diabetes mellitus ([facility]) DVT of leg (deep venous thrombosis) ([facility]) 2020 left leg GERD (gastroesophageal reflux disease) [...] into right arm per hospital protocol Indications: Case Briefer IV therapy, Home IV therapy Insertion: Bedside [...] prevention, CLABSI, and PICC procedural information. Bard Staff Design Engineer Lot #: [id number] * Jessica Briseno RN - 03/20/2023 10:[address] Henderson, patient's quantitative strategy analyst, has okayed patient for a PICC line. * Valeirano Squires MD - 03/19/2023 7:53 AM EDT [...] Echo-Mildly reduced LV systolic function 02/24/17 Lexiscan FIRER MARINE-mildly diminished LV systolic function with an EF [...] [facility]. Hypertension [...] 2017 Cardiac clearance from 09/25/22; Dr. Campos [id number]-vquunghdf with CPAP CKD Stage 4-baseline creat 1.04 [...] reaction No Previous Transfusion Related Reactions No Congregational Reasons To Avoid Blood Transfusions ANESTHESIA HISTORY [...] Echo-Mildly reduced LV systolic function 02/24/17 Lexiscan FIRER MARINE-mildly diminished LV systolic function with an EF [...] 03/19/2023 GLUCOSE 97 03/19/2023 documented in this encounterWayne Memorial [id number] Hospital course Narrative* Debbie Kapadia RN - [...] SHEETS Contact Surgeon's office with any questions/concerns [phone] -Plasma Flow SCD'S Compression leg pumps on Bilateral Legs for 20 hours per day x 2 weeks for additional DVT prevention- SEE SURGEONS INSTRUCTION SHEETS FOR DIRECTIONS -use over the counter stool softeners to prevent constipation - Prevena wound vac - Patient to call office and schedule an appointment to have prevena removed on03/27/2023- [phone]- per conversation with Dr. Santos- if patient is unable to make this appointment due to transportation issues- patient to follow instructions below- patient is aware that it isthe preference for prevena to be removed in office -When Prevena Wound Vac lifespan alarms, please remove the wound vac dressing. Take a photo of the incision and email : [email or web address] Then apply Optifoam dressing that is in your discharge folder. -Call for a 2-3 week follow up appointment and any questions or concerns. Verify Office location when scheduling. [phone] * Portia Sue RN - 03/18/2023 2:28 [...] prior to your surgery. Check in at studio receptionist desk [address] [facility], [place] [address]. If Outpatient, these additional instructions apply: An adult must stay with you the whole time you are here and drive you home. An adult must stay withyou at home for 24 hours due to Anesthesia. If you have JEREMY, you are required to stay 3 hours after your surgery before we can discharge you. documented in this [facility]06-02-2023 Hospital Discharge instructions* Discharge Instructions* Colt Angelo MD - 03/20/2023 11:06 AM EDT ECF Nursing Instructions: 1)Picc Care 2)Qmon CBC,SR,Creat,CRP, fax to Dr. Angelo [phone] 3)IV ATB for 42 days 4)Call Dr. [...] nutrition/TPN (total parenteral nutrition) Blood products Chemotherapy headrig sawyer antibiotics Blood draws Will a PICC affect [...] DVT (Deep Vein Thrombosis): Prevention: General Info (Bahamian) * Incentive Spirometer: General Info (Bahamian) * Fall Prevention (Bahamian) * Opioids: General Info (Bahamian) * Constipation (Bahamian) * PICC (Peripherally Inserted Central Catheter) (Bahamian) * Antibiotics: General Info (Bahamian) * rivaroxaban (Bahamian) documented in this encounterWayne Memorial [id number] Consult note* Jessica Briseno RN - 03/20/2023 11:04 AM EDTAssociated Order(s): IP CONSULT TO IV TEAM PICC Line Insertion Procedure Note Procedure: Insertion of 4 FR SL Power and PICC into right arm per hospital protocol Indications: Case Briefer IV therapy, Home IV therapy Insertion: Bedside [...] prevention, CLABSI, and PICC procedural information. Bard Staff Design Engineer Lot #: [id number] [id number] Consult note* Jessica Briseno RN - 03/20/2023 10:[address] Henderson, patient's quantitative strategy analyst, has okayed patient for a PICC line. [id number] History and physical note* Anusha Barber MD - 03/19/2023 11:54 AM EDT History and Physical Update ( H&P completed within the previous thirty days ) I personally reviewed the History and Physical, interviewed and examined the patient prior to surgery. No changes have occurred in the patient's condition since the History and Physical was completed. [employer] Work Phone: 1(526) 839-907706-01-2023 History and physical note* Anusha Barber MD - 03/19/2023 11:54 AM EDT History and Physical Update ( H&P completed within the previous thirty days ) I personally reviewed the History and Physical, interviewed and examined the patient prior to surgery. No changes have occurred in the patient's condition since the History and Physical was completed. documented in this encounterWayne Memorial [id number] Procedure note* Anusha Barber MD - 03/19/2023 10:22 AM EDT Operative Note Patient Name: RENUKA PADRON Date of Service: March 19, 2023 Date of : 1955 Clinician: ANUSHA BARBER MD Facility: [facility] Location: [facility] PREOPERATIVE DIAGNOSIS: Left knee periprosthetic joint infection. POSTOPERATIVE DIAGNOSIS: Left knee periprosthetic joint infection. PROCEDURES PERFORMED: 1. Left knee polyethylene exchange. 2. Left knee irrigation and debridement. SURGEON: Anusha Barber MD BUSINESS INTELLIGENCE REPORTING ANALYST: Kaur Pierre PA-C ANESTHESIA: General endotracheal anesthesia. [...] was then let down.Hemostasis was obtained. A 10-Bahamian drain was placed in the knee. The [...] do home health or go to a fdc facility. Kaur Pierre PA-C, assisted with proper [...] patient. ANUSHA BARBER MD TT: 03/19/2023 15:47:00 [facility] [id number] Procedure note* Anusha Barber MD - 03/19/2023 10:22 AM EDT Operative Note Patient Name: RENUKA PADRON Date of Service: March 19, 2023 Date of : 1955 Clinician: ANUSHA BARBER MD Facility: [facility] Location: [facility] PREOPERATIVE DIAGNOSIS: Left knee periprosthetic joint infection. POSTOPERATIVE DIAGNOSIS: Left knee periprosthetic joint infection. PROCEDURES PERFORMED: 1. Left knee polyethylene exchange. 2. Left knee irrigation and debridement. SURGEON: Anusha Barber MD BUSINESS INTELLIGENCE REPORTING ANALYST: Kaur Pierre PA-C ANESTHESIA: General endotracheal anesthesia. [...] was then let down.Hemostasis was obtained. A 10-Bahamian drain was placed in the knee. The [...] do home health or go to a fdc facility. Kaur Pierre PA-C, assisted with proper [...] patient. ANUSHA BARBER MD TT: 03/19/2023 15:47:00 [facility] documented in this encounterWayne Memorial [id number] Consult note* Valeriano Squires MD - 03/19/2023 [...] Echo-Mildly reduced LV systolic function 02/24/17 Lexiscan FIRER MARINE-mildly diminished LV systolic function with an EF [...] prevention [facility] be [facility]. Hypertension [...] 2017 Cardiac clearance from 09/25/22; Dr. Campos QRI-omc-pigjlulij with CPAP CKD Stage 4-baseline creat 1.04 [...] reaction No Previous Transfusion Related Reactions No Congregational Reasons To Avoid Blood Transfusions ANESTHESIA HISTORY [...] Echo-Mildly reduced LV systolic function 02/24/17 Lexiscan FIRER MARINE-mildly diminished LV systolic function with an EF [...] 03/19/2023 CREATININE 1.10 03/19/2023 GLUCOSE 97 03/19/2023 RenateMedgenome [id number] History of Present illness Narrative* Encounter Date Complaint History Of Prese nt Illness Follow Up Left Knee Modifying Fa ctors: Previous Surgery: LK poly exchange DAC 10/02/22. Previous Surgery: LTKA 12/25/2014 Dr Pineda. Previous Surgery: RTKA 08/17/2017 Dr Pineda. Comments: Patient fell out of bed two weeks ago and landed on her knees. She went to the emergency room on 03/15/23 and [facility] said there wasn't a fracture present [...] MANUEL injection within the next few days. [facility] Work Phone: 1(693) 120-677704-24-2023 Evaluation note* Encounter Date Diagnosis Assessment Notes [...] Jan,Low back derangement syndrome (ICD-10 - M53.86) [employer] Other 03-21-2023 Evaluation note* Encounter Date Diagnosis Assessment Notes Treatment Notes Treatment Clinical Notes Dec, Asthma, moderate persistent (ICD -10 - J45.40) Dec,Morbid obesity (ICD-10 - E66.01) Dec,OSA (obstructive sleep apnea) (ICD-10 - G47.33) Dec,llergic rhinitis (ICD-10 - J30.9) Dec,ERD (gastroesophageal reflux disease) (ICD-10 - K21.9) [employer] Other 03-02-2023 NoteCONSULTATION CONSULTATION DATE: 12/18/2022 HISTORY: This is a 67-year-old female who returns to the clinic for medication maintenance for her chronic left knee pain. The patient had a total knee replacement done on October 02, 2022 and this was done by Dr. Richard martinez in [place]. She, for a short time, was in [...] prescription, and she agrees with this plan.The Memorial [id number] Evaluation note* Encounter Date Diagnosis Assessment Notes Treatment Notes Treatment Clinical Notes Nov, Pre-diabetes (ICD-10 - R73.09) [employer] Other 12-19-2022 History of Present illness Narrative* [...] - 10/06/2022 2:55 PM EST [facility] [place] Physical Therapy Treatment PT Discharge Recommendations: senior living facility placement Distance Ambulated (ft): 50 (9r18bugr, 8f97vcum) Device: Rolling walker L Knee Flexion 0-140: [...] Rolling walker Distance Ambulated (ft) 50 Comments o96vsri, s61ionc with FWW Procedures Procedures Gait Training;Therapeutic Exercise Gait Training Gait Training Time Entry 15 Gait Training Activity 1 Gait training h44yjwb to toilet cga Gait Training Activity 2 Gait training w55xscm after toileting task, cga Therapeutic Exercise Therapeutic [...] AM EST CM updated by Zunilda at [facility] that precert had been obtained and they were able to admit patient to facility today. CM updated patient at bedside and she was updating her insurance company to keep scheduled transport time of noon. CM has faxed HENS, discharge RX, instructions and orders to [facility]: [phone]. RX in folder: oxycodone, xarelto and zofran Discharge packet completed, will place at Nurse's Station. No further CM needs at this time. RN number for report: [phone] * Yasmin Beck PT - 10/06/2022 9:51 AM EST [facility] Discharge Recommendations: senior living facility placement Distance Ambulated (ft): 45 Device: [...] stance time Distance Ambulated (ft) 45 Comments q27sbmj with FWW, u34uzyi with FWW after toileting AROM LLE (degrees) L Knee Flexion 0-140 0-77 Procedures Procedures Gait Training;Therapeutic Exercise Gait Training Gait Training Time Entry 15 Gait Training Activity 1 Gait with FWW c18ieno prior to toileting cga Gait Training Activity 2 Gait with FWW r65hxlr after toileting, using personal FWW Therapeutic Activity [...] that CM has spoken with admissions at [facility] and they are still awaiting precert. [...] AM EST AMADO made OB call to [facility]- [phone]-spoke with Thuy in admissions- she has already sent a note to insurance [employer] this morning to check on precert status. CM has faxed updated PT and progress notes to [phone]- will update patient at bedside that we [...] in addition with additional sliding scale insulin. Ybeqm-tx-rypo glucose results have been reviewed. 0 Lab [...] exercises. Xarelto use noted by surgeon. Awaiting fdc home placement. This patient will be considered [...] Plan for discharge to Subacute Rehab Facility ([facility] or [facility]) when cleared by PT and medically stable [...] End of Shift Summary: * Amandasarah Gorman, PLANT PHYSIOLOGY TEACHER - 10/05/2022 12:50 PM EST [facility] Physical Therapy Treatment PT Discharge Recommendations: senior living facility placement Distance Ambulated (ft): 30 Device: [...] of care until patient is discharged from [facility]. Objective 10/05/22 1250 General Family/Caregiver Present [...] PT Plan Skilled PT PT Discharge Recommendations senior living facility placement Goals/Education Encounter Problems Encounter Problems [...] Plan for discharge to Subacute Rehab Facility ([facility] or [facility]) when cleared by PT and medically stable * Amanda Gorman, PLANT PHYSIOLOGY TEACHER - 10/05/2022 9:42 AM EST [facility] Physical Therapy Treatment PT Discharge Recommendations: senior living facility placement Distance Ambulated (ft): 30 Device: [...] Plan of care untilpatient is discharged from [facility]. Objective 10/05/22 0942 General Family/Caregiver Present [...] PT Plan Skilled PT PT Discharge Recommendations senior living facility placement Goals/Education Encounter Problems Encounter Problems [...] 10/04/2022 12:36 PM EST [facility] Per Yaz: admission is not [...] Plan for discharge to Subacute Rehab Facility ([facility] or ECF) when cleared by PT and medically stable * Beckie Sunshine, PT - 10/04/2022 9:50 AM EST [facility] [place] Physical Therapy Treatment PT Discharge Recommendations: senior living facility placement DISPOSITION/PLAN: PT is recommending therapy [...] Patient received recumbent in room 226 at [facility] Please refer to OBJECTIVE assessment, [...] 1-2 times per day PT Discharge Recommendations senior living facility placement Goals/Education Encounter Problems Encounter Problems [...] 10/03/2022 6:11 PM EST [facility] * Amanda Gorman PTA - 10/03/2022 3:07 PM EST Patient sleeping soundly and did not rouse to name of knock. Will attempt again in am. * Debbie Kapadia RN - 10/03/2022 2:28 PM EST Zunilda from [facility] will accept the patient pending precert and patient updated * Meghann Angelo - 10/03/2022 12:08 PM EST 10/03/22 1208 Clinical Encounter Type Visited With Patient Time Spent 15 Minutes Type of Contact Introduction SPIRITUAL CARE ASSESSMENT Spiritual Care Assessment: Pt appropriate and coping supported by family and melinda expressed hope Spiritual Intervention: Active listening Hospitality provided Clifford given Outcome: Pt shared feeling and hope Plan: PC will return at pt/family request. * Debbie Kapadia RN - 10/03/2022 11:36 AM EST Into see the patient and updated that [facility] is reviewing the referral. N * Debbie Kapadia RN - 10/03/2022 10:36 AM EST [facility] admissions called back the they do not have beds and will not until mid next week. PABLO ODONNELL Rep. Reports the patient just told her to tell me when she delivered her leg pumps of a [facility] facility [facility] in [place] and called [phone] spoke to Zunilda and she does have beds and referral faxed to her at [phone]. N Kapadia RN - 10/03/2022 9:50 AM EST Rosetta from [facility] has no beds Patient would like a referral to [facility] in [place] and called them [phone] Admissions in a meeting but they would like the referral sent to [facility] [phone] and sent. Patient will look for a 3rd choice if needed. * Amanda Gorman PLANT PHYSIOLOGY TEACHER - 10/03/2022 8:55 AM EST [facility] Physical Therapy Treatment PT Discharge Recommendations: senior living facility placement Distance Ambulated (ft): 30 Device: [...] of care until patient is discharged from [facility]. Objective 10/03/22 0855 General Family/Caregiver Present [...] 1-2 times per day PT Discharge Recommendations senior living facility placement Goals/Education Encounter Problems Encounter Problems [...] Plan for discharge to Subacute Rehab Facility ([facility] or ECF) when cleared by PT and medically stable * Debbie Kapadia RN - 10/02/2022 4:34 PM EST Spoke to Rosetta in admissions at [facility] and she does not know what fax [phone] isbut her fax is [phone] and manually faxed the referral but she also does not have beds until next week She would need to look at her beds to determine what day. Currently she is helping in the cafeteria but she will review and get back with CM tomorrow. * Amanda Horvath PT - 10/02/2022 3:00 PM EST [facility] Physical Therapy Evaluation PT Discharge Recommendations: senior living facility placement Distance Ambulated (ft): 30 Device: [...] loosening of internal left knee prosthetic joint ([facility]) Past Medical History: Diagnosis Date Anemia Asthma Chronic kidney disease CKD 2/3 COPD (chronic obstructive pulmonary disease) ([facility]) Diabetes mellitus ([facility]) DVT of leg (deep venous thrombosis) ([facility]) 2020 left leg GERD (gastroesophageal reflux disease) [...] of Steps 3 Prior Function Level of [place] Independent with mobility and functional transfers Receives [...] 1-2 times per day PT Discharge Recommendations senior living facility placement Equipment Recommended WW PT - [...] none Initial Transition Plan Initial Transition Plan Chcf Facility Back up Transition Plan Back up Transition plan Chcf Facility Plan is SNF and requesting [facility] [place] * Anusha Sung DO - 10/02/2022 1:34 [...] she would like to go to [facility] in [place] at discharge. She has no one at home to help her. documented in this encounterWayne Memorial [id number] Hospital course Narrative* Debbie Kapadia RN - 10/03/2022 5:58 PM EST [facility] -PT/OT Eval for Gait training, ADL'S, bed mobility, transfers, knee rom and strengthening, venous return exercises and modalities prn. Please follow surgeon's discharge instructions and prescription directions. Surgeon' discharge instructions are in patient's folder- FOLLOW SURGEON INSTRUCTION SHEETS Contact Surgeon's office with any questions/concerns [phone] -When Prevena Wound Vac lifespan alarms IN 7 DAYS FROM SURGERY please remove the wound vac dressingOR HAVE A FOLLOW UP SCHEDULED FOR 10/09/22 TO HAVE THE OFFICE REMOVE. CALL TO SCHEDULE THIS APPOINTMENT IF YOU WANT THE OFFICE TO REMOVE. Take a photo of the incision and email : [email or web address] apply Optifoam dressing that is in your discharge folder. ---A wound check will be performed at one week which can be done either by in person by scheduling a follow up visit in one week with Dr. BARBER in clinic by calling [phone], or virtually via store and forward telehealth. If you are opting for a virtual one-week wound check: 1. Please remove Prevena dressing only after therapy has completed as indicated by the device. 2. Take a photo of your wound and E-mail the photo to [employer] with Attn Dr. Rodsa in the subject line. 3. Cover the [...] or concerns. Verify Office location when scheduling. [email or web address] [phone] * Shilpi Rodriguez RN - 10/01/2022 9:36 [...] prior to your surgery. Check in at studio receptionist desk [address] [place] [address]. If Outpatient, these additional instructions apply: An adult must stay with you the whole time you are here and drive you home. An adult must stay withyou at home for 24 hours due to Anesthesia. If you have JEREMY, you are required to stay 3 hours after your surgery before we can discharge you. documented in this encounterWayne Memorial [id number] Procedure note* Anusha Barber MD - 10/02/2022 11:[address] 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 The pipe out worker was [employer] . The poly locked [...] good position and alignment of the components. BUSINESS INTELLIGENCE REPORTING ANALYST/ATTENDING PARTICIPATION: Carlos Gomez DO assisted with proper [...] By: Anusha Barber MD, on 10/02/2022 12:05:[address] [facility] [place], A Member of [facility] OPERATIVE REPORT PATIENT NAME: Renuka Padron DATE OF : 1955 CSN: [id number] SURGEON: Anusha Barber MD DATE OF SERVICE: 10/02/2022 DATE OF SURGERY: 10/02/2022 REF [id number] LOT [id number] LUIS F Christinet-E 16 Millimeter Tibial insert Use By 2024-11-18 [id number] (18) [id number] (85) [id number] [id number] Procedure note* Anusha Barber MD - 10/02/2022 11:[address] 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 The pipe out worker was [employer] . The poly locked [...] good position and alignment of the components. BUSINESS INTELLIGENCE REPORTING ANALYST/ATTENDING PARTICIPATION: Carlos Gomez DO assisted with proper [...] By: Anusha Barber MD, on 10/02/2022 12:05:[address] [facility] [place], A Member of [employer] OPERATIVE REPORT PATIENT NAME: Renuka Padron DATE OF : 1955 CSN: [id number] SURGEON: Anusha Barber MD DATE OF SERVICE: 10/02/2022 DATE OF SURGERY: 10/02/2022 REF [id number] LOT [id number] PERSONJulio Cesar Vivac[employer]-E 16 Millimeter Tibial insert Use By 2024-11-18 [id number] (03) [id number] (98) [id number] documented in this encounterSouthside [id number] History and physical note* Anusha Barber MD - 10/02/2022 10:29 AM EST History and Physical Update ( H&P completed within the previous thirty days ) I personally reviewed the History and Physical, interviewed and examined the patient prior to surgery. No changes have occurred in the patient's condition since the History and Physical was completed. [employer] Work Phone: 1(916) 719-835012-15-2022 History and physical note* Anusha Barber MD - 10/02/2022 10:29 AM EST History and Physical Update ( H&P completed within the previous thirty days ) I personally reviewed the History and Physical, interviewed and examined the patient prior to surgery. No changes have occurred in the patient's condition since the History and Physical was completed. documented in this encounterSouthside [id number] Evaluation note* Encounter Date Diagnosis Assessment Notes [...] UA 3.7 Sep,therHemoglobin stable on ferrous sulfate. [employer] Other 12-01-2022 NoteCONSULTATION CONSULTATION DATE: 09/18/2022 This is a 67-year-old female who returns to the clinic for a 3-month follow-up for chronic lower back pain, left hip pain and left knee pain. She was last seen on 05/29/2022. At that time, she was in the process of having a workup from Orthopedics in [place] pending left knee and hip replacement. Today she reports that she is having a left total knee done on 10/[address] Barber in [place]. At her last appointment she was ordered [...] time for a follow-up unless otherwise indicated.[facility] [id number] Evaluation note* Encounter Date Diagnosis Assessment Notes [...] 2022Low back derangement syndrome (ICD-10 - M53.86) [employer] Other 09-13-2022 Evaluation note* Encounter Date Diagnosis [...] 13 Jun, 2022Medication management (ICD-10 - Z79.899) [employer] Other 08-11-2022 NoteCONSULTATION CONSULTATION DATE: 05/29/2022 HISTORY [...] t.i.d., tizanidine 4 mg b.i.d., Topamax and [place] 5/325 b.i.d. She was seen by Dr. Desai, who referred her to an orthopedic high insurance risk manager down in [place] regarding her left hip arthrosis. She is in need of a total left hip replacement, but she was sent to complete four weeks of therapy for strengthening prior to the surgery. The combination of her lower back pain and hip pain increases her pain. At rest, her pain is 4/10. With activity, it is 8-9/10. The patient feels the [place] is not as helpful as it has [...] the patient, she must bring in her [place] to be disposed of prior to starting the Percocet. She is in agreement to this. The intent is to go down to daily following her hip replacement and following lumbar rhizotomy. Patient will be brought in post procedure.[facility] [id number] Evaluation note* Encounter Date Diagnosis Assessment Notes [...] - E88.81) May,Medication management (ICD-10 - Z79.899) [employer] Other 07-07-2022 NoteCONSULTATION CONSULTATION DATE: 04/24/2022 This [...] total knee replacements. She was currently taking [place] 5/325, 1.5 mg q. day. In addition, she takes gabapentin, tizanidine and Topamax. She was on Plavix but has been taken off of that two weeks ago. The patient recently saw her PCP and he suggested that the [place] be increased to b.i.d. for better management [...] degenerative disk and lumbar spondylosis. PLAN: Her [place] will be refilled at 5/325 b.i.d. After discussion with the patient, she agrees to move forward with the lumbar epidural steroid injection with sedation only. The patient agrees to this and was educated regarding her vitamins and magnesium. She will be followed up in the clinic post-procedure. [facility] Signed and Approved by: GIULIA PICHARDO . 05/01/2022 09:48:00[facility]06-29-2022 Evaluation note* Encounter Date Diagnosis Assessment [...] - E88.81) Mar,Medication management (ICD-10 - Z79.899) [employer] Other 06-28-2022 Evaluation note* Encounter Date Diagnosis Assessment Notes Treatment Notes Treatment Clinical Notes Mar, Asthma, moderate persistent (ICD -10 - J45.40) Mar,Morbid obesity (ICD-10 - E66.01) Mar, (obstructive sleep apnea) (ICD-10 - G47.33) Mar,llergic rhinitis (ICD-10 - J30.9) Mar,GERD (gastroesophageal reflux disease) (ICD-10 - K21.9) [employer] Other 06-15-2022 Evaluation note* Encounter Date Diagnosis [...] next visit Mar,therHemoglobin stable on ferrous sulfate. [employer] Other 05-26-2022 Evaluation note* Encounter Date Diagnosis Assessment Notes Treatment Notes Treatment Clinical Notes February, Edema of extremities (ICD-10 - R 60.0) [employer] Other 04-20-2022 Evaluation note* Encounter Date Diagnosis [...] I50.9) Jan,Metabolic syndrome X (ICD-10 - E88.81) [employer] Other 04-11-2022 Evaluation note* Encounter Date Diagnosis Assessment Notes Treatment Notes Treatment Clinical Notes Jan, Acute right-sided thoracic back pain (ICD-10 - M54.6) [employer] Other 02-23-2022 Evaluation note* Encounter Date Diagnosis Assessment Notes Treatment Notes Treatment Clinical Notes Nov, Other chronic pain (ICD-10 - G89 .29) [employer] Other 02-15-2022 Evaluation note* Encounter Date Diagnosis Assessment Notes Treatment Notes Treatment Clinical Notes Nov, Other chronic pain (ICD-10 - G89 .29) [employer] Other 01-18-2022 Evaluation note* Encounter Date Diagnosis [...] I50.9) Oct,Metabolic syndrome X (ICD-10 - E88.81) [employer] Other 01-18-2022 Evaluation note* Encounter Date Diagnosis [...] cannot say how often she uses it. [employer] Other 12-16-2021 Evaluation note* Encounter Date Diagnosis Assessment Notes Treatment Notes Treatment Clinical Notes Sep, Other chronic pain (ICD-10 - G89 .29) [employer] Other 12-08-2021 Evaluation note* Encounter Date Diagnosis [...] - D63.1) Hemoglobin stable on ferrous sulfate. [employer] Other 11-18-2021 Evaluation note* Encounter Date Diagnosis Assessment Notes Treatment Notes Treatment Clinical Notes Aug, Hyperuricemia (ICD-10 - E79.0) Aug,Other chronic pain (ICD-10 - G89.29) [employer] Other 10-29-2021 Evaluation note* Encounter Date Diagnosis Assessment Notes Treatment Notes Treatment Clinical Notes Jul, Lower extremity edema (ICD-10 - R60.0) [employer] Other 10-13-2021 Evaluation note* Encounter Date Diagnosis Assessment Notes Treatment Notes Treatment Clinical Notes Jul, Other chronic pain (ICD-10 - G89 .29) Jul,cute right-sided thoracic back pain (ICD-10 - M54.6) [employer] Other 10-13-2021 Evaluation note* Encounter Date Diagnosis Assessment Notes Treatment Notes Treatment Clinical Notes Jul, Other chronic pain (ICD-10 - G89 .29) [employer] Other 10-07-2021 Evaluation note* Encounter Date Diagnosis [...] with her we will contact diabetic shoe [employer]. Jul,ower extremity edema (ICD-10 - R60.0) stopped [...] has been off at least a month. [employer] Other 09-23-2021 Evaluation note* Encounter Date Diagnosis [...] I50.9) Jun,Metabolic syndrome X (ICD-10 - E88.81) [employer] Other 09-22-2021 Evaluation note* Encounter Date Diagnosis Assessment Notes Treatment Notes Treatment Clinical Notes Jun, Asthma, moderate persistent (ICD -10 - J45.40) Jun,Morbid obesity (ICD-10 - E66.01) Jun,OSA (obstructive sleep apnea) (ICD-10 - G47.33) Jun,llergic rhinitis (ICD-10 - J30.9) Jun,GERD (gastroesophageal reflux disease) (ICD-10 - K21.9) Located Within [facility] Other consult note* Clinical Note Date No Information [facility] Work Phone: Discharge summary* Clinical Note Date No Information [facility] Work Phone: Evaluation noteNo InformationNortEagleville Hospital Credii Other Evaluation note* Diagnosis Onset Date Resolution Status Iron deficiency anemia chronicThrombophlebitischronic [facility] Work Phone: Evaluation note* Diagnosis Mechanical loosening of internal left knee prosthetic joint, subsequent encounter- Primary Mechanical loosening of internal left knee prosthetic joint, 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, subsequent encounter documented in this encounter [facility] [place] [facility]* Diagnosis S/P left knee surgery- Primary Infection and inflammatory reaction due to other internal joint prosthesis, initial encounter (CMS/HCC) Infection and inflammatory reaction due to other internal joint prosthesis, initial encounter ([facility]) documented in this encounter [facility] HospitalEvaluation noteNo assessment information availableGrant Hospital Work Phone: Evaluation note* Author Yuan Romeo [facility]oredC[facility] 2023 2:53pmPatient is stable with lack of insurance coverage for Symbicort. It appears that patient's best choice for insurance coverage of medications should be Advair Diskus. [facility] Work Phone: Evaluation note* Type Assessment Date No Information [facility] Work Phone: Evaluation note* Diagnosis Onset Date Resolution Status Admit Date Contact with and (suspected) exposure to covid-19 noneactiveJanuary 2024 12:18pm [facility] Work Phone: Evaluation note* Diagnosis Hypotension after procedure- Primary Hypotension after procedure COPD (chronic obstructive pulmonary disease) (HCC) Chronic airway obstruction, not elsewhere classified Diabetes mellitus (HCC) Type II or unspecified type diabetes mellitus without mention of complication, not stated as uncontrolled Hypertension Unspecified essential hypertension Stage 4 chronic kidney disease (HCC) documented [facility] encounter [facility]* Diagnosis ETD (Eustachian tube dysfunction), bilateral- Primary Ear fullness, bilateral Swollen gland Multinodular goiter (CMS/HCC) Nontoxic multinodular goiter [facility]* Diagnosis Sensorineural hearing loss, bilateral- Primary Tinnitus, bilateral Unspecified tinnitus documented [facility]* Diagnosis Allergic rhinitis, unspecified seasonality, unspecified trigger- Primary Sensorineural hearing loss (SNHL), bilateral Nontoxic multinodular goiter (CMS/HCC) Nontoxic multinodular goiter documented [facility]* Diagnosis Left knee pain, unspecified chronicity- Primary Left hip pain Pain in joint, pelvic region and thigh History of total knee arthroplasty, left Primary osteoarthritis of left hip Primary localized osteoarthrosis, pelvic region and thigh Left hip pain Pain in joint, pelvic region and thigh Left knee pain, unspecified chronicity documented [facility] this encounter [facility] Diagnosis Left knee pain, unspecified chronicity documented [facility] this encounter [facility]* Diagnosis Left hip pain Pain in joint, pelvic region and thigh documented in this encounter [facility]* Diagnosis Onset Date Resolution Status Admit Date ANS (arteriolar nephrosclerosis) acuteSept2024 1:40pmChronic kidney disease, stage 2 (mild)acute July 12, 2025 1:40pmHyperparathyroidismacuteSept2024 1:40pm HyperuricemiaacuteSept2024 1:40pmHypomagnesemiaacuteSept2024 1:40pmLocalized edemaacuteSept2024 1:40pmVitamin B12 deficiency acuteSept2024 1:40pmVitamin D deficiencyacuteSept2024 1:40pm [facility] Work Phone: History and physical note* Clinical Note Date No Information [facility] Work Phone: History general Narrative - Reported* [...] HistoryOSAMedical HistoryEsophageal refluxSurgical History appendectomySurgical HistorytonsillectomySurgical Historygastric [id number] Surgical HistoryCaesarean sectionSurgical Historyleft knee arthroplastySurgical HistoryEVLT Right [id number] Historycolonoscopy02/2013Surgical HistoryFoot SurgerySurgical HistoryTKA12/2014Surgical Historytoenails removed02/22/2014Surgical Historycardiac catheterization02/2013Surgical HistoryTKA rt08/17/2017Surgical HistoryTENDINITIS IN LEFT FOOTSurgical HistoryUPPER GI05/2019Hospitalization HistoryappendectomyHospitalization HistorytonsillectomyHospitalization History [facility] Kidney problems03/2019Hospitalization HistorysEE ABOVEHospitalization HistorypneumoniaHospitalization HistoryLeg cramps [facility] dehydration06/2021 Located Within [facility] Cred[facility] Other History general Narrative - ReportedNortEagleville Hospital Credii Other History general Narrative - Reported* Type [...] HistoryOSAMedical HistoryEsophageal refluxSurgical History appendectomySurgical HistorytonsillectomySurgical Historygastric [id number] Surgical HistoryCaesarean sectionSurgical Historyleft knee arthroplastySurgical HistoryEVLT Right [id number] Historycolonoscopy02/2013Surgical HistoryFoot SurgerySurgical HistoryTKA12/2014Surgical Historytoenails removed02/22/2014Surgical Historycardiac catheterization02/2013Surgical HistoryTKA rt08/17/2017Surgical HistoryTENDINITIS IN LEFT FOOTSurgical HistoryUPPER GI05/2019Surgical HistoryLt. TKA APVJGTNM09/15/2022Hospitalization HistoryappendectomyHospitalization History tonsillectomyHospitalization History[facility] Kidney problems03/2019Hospitalization HistorysEE ABOVEHospitalization HistorypneumoniaHospitalization HistoryLeg cramps [facility] dehydration06/2021 [employer] Other History general Narrative - Reported* Type [...] cholesterolMedical HistoryPVDMedical HistoryadoptedSurgical HistoryappendectomySurgical History tonsillectomySurgical Historygastric [id number] HistoryCaesarean section Surgical Historyleft right knee arthroplastySurgical HistoryEVLT Right [id number] Surgical Historycolonoscopy02/2013Surgical HistoryFoot SurgerySurgical HistoryTKA 12/2014Surgical Historytoenails removed02/22/2014Surgical Historycardiac catheterization02/2013Surgical HistoryTKA rt08/17/2017Surgical HistoryTENDINITIS IN LEFT FOOTSurgical HistoryUPPER GI05/2019Surgical HistoryLt. TKA REVISION 10/02/2022urgical Historybiopsy-thyroidSurgical HistorycolonoscopySurgical Historyheart catheterizationSurgical Historybariatric surgeryHospitalization HistoryappendectomyHospitalization HistorytonsillectomyHospitalization History [facility] Kidney problems03/2019Hospitalization HistorysEE ABOVEHospitalization HistorypneumoniaHospitalization HistoryLeg cramps [facility] dehydration06/2021 [employer] Other History general Narrative - Reported* Type [...] cholesterolMedical HistoryPVDMedical HistoryadoptedSurgical HistoryappendectomySurgical History tonsillectomySurgical Historygastric [id number] HistoryCaesarean section Surgical Historyleft right knee arthroplastySurgical HistoryEVLT Right [id number] Surgical Historycolonoscopy02/2013Surgical HistoryFoot SurgerySurgical HistoryTKA 12/2014Surgical Historytoenails removed02/22/2014Surgical Historycardiac catheterization02/2013Surgical HistoryTKA rt08/17/2017Surgical HistoryTENDINITIS IN LEFT FOOTSurgical HistoryUPPER GI05/2019Surgical HistoryLt. TKA REVISION 2Surgical Historybiopsy-thyroidSurgical HistorycolonoscopySurgical Historyheart catheterizationSurgical Historybariatric surgerySurgical Historylt total knee ufcinvek35/2022Surgical Historylt knee infection revision of knee cap 03/2023Hospitalization HistoryappendectomyHospitalization Historytonsillectomy Hospitalization HistoryFR Kidney problems03/2019Hospitalization HistorysEE ABOVEHospitalization HistorypneumoniaHospitalization HistoryLeg cramps [facility] dehydration06/2021 [employer] Other History of Present illness Narrative* Patient [...] implantable device. She will discuss with her assistant principal Dr. Encarnacion * 5. I reviewed her recent lab work * 6. We will see her back in 1 year in follow-up [facility] 250 DO Work Phone: Hospital Discharge instructions* Attachments The following attachments cannot be sent through Care Everywhere. * Fall Prevention (Bahamian) * DVT (Deep Vein Thrombosis): Prevention: General Info (Bahamian) * Pain Medication Precautions (Bahamian) * Constipation (Bahamian) * Incentive Spirometer: General Info (Bahamian) * Antibiotics: General Info (Bahamian) documented in this encounterAurora Hospitality HealthInstructions* Date Instruction Additional Infor mation No Information [facility] Work Phone: Progress note* Clinical Note Date No Information [facility] Work Phone: Reason for referral (narrative)* Reason For Referral No Information [facility] [place] Work Phone: Reason for referral (narrative)No reason for referral information availableGrant Hospital Work Phone: Reason for visit Narrative* Auth/CertSpecialty Diagnoses / ProceduresReferred By ContactReferred To Contact Diagnoses Mechanical loosening of internal left knee prosthetic joint, subsequent encounter T84.033D Procedures NC REVISION TOTAL KNEE ARTHROPLASTY WITH OR WITHOUT ALLOGRAFT 1 COMPONENT NC REVISION TOTAL KNEE ARTHROPLASTY WITH OR WITHOUT ALLOGRAFT 1 COMPONENT Left knee revision arthroplasty poly exchange Anusha Barber MD [address] [place] [address] [facility] [address] [place] [address] Referral IDStatusReasonStingalls DateExpiration DateVisits RequestedVisits [id number] [facility] for visit Narrative* Auth/CertSpecialtyDiagnoses / ProceduresReferred By ContactReferred To Contact Diagnoses Infection and inflammatory reaction due to other internal joint prosthesis, initial encounter ([facility]) T84.59XA Procedures NC INCISION & DRAINAGE ABSCESS/BURSA/HEMATOMA DEEP SOFT TISSUE THIGH/KNEE Left knee I & D Anusha Barber MD [address] [place] [address] [facility] [address] [place] [address] Referral IDStatusReasonStart DateExpiration DateVisits RequestedVisits [id number] [facility] for visit Narrative* Auth/Cert (Routine)SpecialtyDiagnoses / ProceduresReferred By ContactReferred To Contact Diagnoses Left hip pain Left hip pain [M25.552] Procedures NC ARTHROCENTESIS ASPIR&/INJ MAJOR JT/BURSA W/O US INJECTION MEDICATION-HIP INTRA-ARTICULAR INJECTION Estrella Angelo MD [facility] [place] [address] [place] [address] Phone: tel: fax: [facility] [address] [place] [address] Referral IDStatusReasonStart DateExpiration DateVisits RequestedVisits [id number] [place] [facility] Summary Purpose Family History Unknown Family Member [...] 1:51pm Code StatusDate ActivatedDate InactivatedCommentsFull Code - Hhvfggf1210/02/2022 2:16 PM10/06/2022 7:03 PMThis is order is [...] arrest.Code Status Date ActivatedDate InactivatedCommentsFull Code - Gsdygkq4210/02/2022 2:16 PM 10/06/2022 7:03 PMThis is order [...] section and content) DATE CREATED AUTHOR 06/14/2018 [facility] DATE CREATED AUTHOR AUTHOR'S ORGANIZ ATION 07/09/2018 DATE CREATED AUTHOR AUTHOR'S ORGANIZ ATION 09/05/2018 [facility] DATE CREATED AUTHOR AUTHOR'S ORGANIZ ATION 12/29/2020 [facility] DATE CREATED AUTHOR AUTHOR'S ORGANIZ ATION 09/26/2022 [facility] DATE CREATED AUTHOR AUTHOR'S ORGANIZ ATION 09/26/2022 [employer] DATE CREATED AUTHOR AUTHOR'S ORGANIZ ATION 03/30/2023 [facility] DATE CREATED AUTHOR AUTHOR'S ORGANIZ ATION 06/05/2024 [facility] DATE CREATED AUTHOR AUTHOR'S ORGANIZ ATION 06/07/2024 [facility] DATE CREATED AUTHOR AUTHOR'S ORGANIZ ATION 06/09/2024 [facility] DATE CREATED AUTHOR AUTHOR'S ORGANIZ ATION 06/11/2024 [facility] DATE CREATED AUTHOR AUTHOR'S ORGANIZ ATION 07/22/2024 [facility] DATE CREATED AUTHOR AUTHOR'S ORGANIZ ATION 01/27/2025 [facility] DATE CREATED AUTHOR AUTHOR'S ORGANIZ ATION 03/17/2025 [facility] DATE CREATED AUTHOR AUTHOR'S ORGANIZ ATION 04/15/2025 [facility] DATE CREATED AUTHOR AUTHOR'S ORGANIZ ATION 05/02/2025 [facility] DATE CREATED AUTHOR AUTHOR'S ORGANIZ ATION 07/23/2025 [facility] REASON FOR VISIT (unrecogniz ed section and content) ReasonCommentsSwollen GlandsReasonCommentsThyroid NoduleFollow up ultrasound [facility] 01/24/25Ear ProblemAudio 03/14/2587EegptdQquhfcubMwmg84 y.o. female 2007 L TKAand 2021 L TKRevsion (Dr. Barber in [place]). Had a cat scratch infection in 2022 [...] and grafts, initial encounter Vlad Wade MD [address] [place] [address] Phone: tel: Vlad Joel MD [address] [place] [address] Phone: tel: fax: Referral IDStatusReasonStart DateExpiration DateVisits RequestedVisits [id number] Care Teams (unrecognized sec tion and content) [...] Primary Care Provider Active Deidra Lee , CLAM PICKER-BCEmergency ProviderActive Team Status: Inactive Member Role Status Dates Elda Sibley DO Primary Care Provider Active Peter Sosa DOAttending ProviderActive Team Status: Active Member Role Status Dates Colt Ndiaye MD ActiveElda Sibley DOPrimary Care ProviderActiveMary Karla Epps , APRNAttending Provider, Other ProviderActiveTeam MemberRelationshipSpecialty Start DateEnd Date Peter Sosa DO [address] [place] [address] PCP - GeneralFamily Bogopgcy71/5/22Team MemberRelationshipSpecialtyStart DateEnd Date Peter Sosa DO [address] [place] [address] PCP - [facility] Aapwzzcr87/5/22 Name Effective Dates (start - stop) Status Members No Information Team Status: Inactive Member Role Status Dates Peter Sosa DO Primary Care Provider Active Start: October 27, 2024 End: October 27Jose Valle ProviderActiveStart: October 27, 2024 End: October 27, 2024Team MemberRelationshipSpecialtyStart DateEnd Date Unallocated, Souravs MD Antonio [address] [place] [id number] PCP - [facility] Medicine12/18/23Team MemberRelationshipSpecialtyStart DateEnd Date Unallocated, Deb Alvarez MD [address] [place], [place] [address] [address] PCP - [facility]12/18/23Team MemberRelationshipSpecialtyStart DateEnd Date Unallocated, Deb Alvarez MD [address] [place] [id number] PCP - [facility] Medicine12/18/23Team MemberRelationshipSpecialtyStart DateEnd Date Unallocated, Deb Alvarez MD [address] [place] [address] PCP - [facility]12/18/23Team MemberRelationshipSpecialtyStart DateEnd Date Unallocated, Deb Alvarez MD [facility] [place] [address] PCP - [facility]12/18/23Team MemberRelationshipSpecialtyStart DateEnd Date Peter Sosa MD [address] [place] [address] PCP - GeneralFamily Medicine03/17/25Team MemberRelationshipSpecialtyStart DateEnd Date Peter Sosa MD [address] [place] [phone] PCP - GeneralFamily Medicine03/17/25 Team Status: Inactive Member Role Status Dates Peter Sosa DO Attending Provider Active Start: April 11, 2025 End: April 11, 2025Team MemberRelationshipSpecialtyStart DateEnd Date Peter Sosa DO [address] [place] [address] PCP - GeneralFamily Medicine04/28/25Team MemberRelationshipSpecialtyStart DateEnd Date Peter Sosa DO [address] [place] [address] PCP - Generalmily Medicine04/28/25Team MemberRelationshipSpecialtyStart DateEnd Date Unallocated, Deb Alvarez MD [address] [place] [address] PCP - GeneralFamily Medicine Peter Sosa MD [address] [place] [address] PCP - Generalmily Medicine03/17/25Team MemberRelationshipSpecialtyStart DateEnd Date Unallocated, Deb Alvarez MD [address] [place] [id number] PCP - GeneralFamily Medicine Peter oSsa MD [address] [place] [address] PCP - GeneralFamily Medicine03/17/25 Goals (unrecognized section [...] Care 2)Qmon CBC,SR,Creat,CRP, fax to Dr. Angelo [phone] 3)IV ATB for 42 days 4)Call Dr. [...] at 2100, Recovery & On Unit * 3466 (Given - Provider: Gloria Mohan RN) * [...] * 0727 (Given - Provider: Opal Carter, COURT STENOGRAPHER) * 2027 (Given - Provider: Berenice Carcamo, [...] Guillory RN) * 0838 (Given - Provider: Shanw Rinaldi RN) * 2117 (Given - Provider: [...] SBP >150 or DBP >100, Starting on [facility] 10/04/22 at 1128 cyclobenzaprine (FLEXERIL) tablet 10 [...] Every 6 hours PRN, itching, Starting on [facility] 10/05/22 at 1545 * 1601 (Given - [...] * 2145 (Given - Provider: Nory Khan, COURT STENOGRAPHER) * 0806 (Given - Provider: Nicole Ku) [...] 2100 * 2032 (Not Given - Provider: aPvan Linton RN - Reason: Patient/Resident/Agent refused - [...] > 180 or DBP > 100, Starting [facility] 03/19/23 at 1631 diphenhydrAMINE (BENADRYL) capsule 25 [...] provider - Provider: Danika Prince, DIANE - RN ENDOSCOPY - Reason: Other) * 1345 (Automatically Held) [...] Vizcaino RN) * 2102 (Given - Provider: Marilyn Weinstein RN) * [...] BE BASED ON THE PRIMARY CLINICAL RECORDS. [facility] [employer] [facility]. provides no warranty or guarantee of the accuracy or completeness of information in this document.
[2025-08-30] MEDS: REGADENOSON 0.4 MG/5 ML SYRINGE IV (08:46)
--- NOTE | 2025-08-30 08:47 | PC.NURSE ---
Patient tolerated Lexiscan without problems. Denies complaints. Symptom free upon leaving the stress lab.
--- NOTE | 2025-08-30 12:22 | PM.STRESS ---
Stress Test Stress Test Allergies Allergy/AdvReac Type Severity Reaction Status Date / Time aspirin Allergy Unknown Verified 06/01/23 13:46 furosemide (From Lasix) Allergy Unknown Verified 06/01/23 13:46 latex Allergy Unknown Verified 06/01/23 13:46 nabumetone Allergy Unknown Verified 06/01/23 13:46 Penicillins Allergy Unknown Verified 06/01/23 13:46 Sulfa (Sulfonamide Allergy Unknown Verified 06/01/23 13:46 Antibiotics) adhesive Allergy Unknown Uncoded 06/01/23 13:46 Requesting physician: PETER ZHOU Procedure: Lexiscan Cardiolite stress test General Information: Reason for Stress Test: [Chest pain] Cardiac History and Risk Factors: [History of coronary artery disease, prior myocardial infarction] Resting 12 - Lead Electrocardiogram: Sinus rhythm Left bundle branch block Abnormal ECG Stress Test: Protocol: [Lexiscan] Exercise Capacity: [N/A] Blood Pressure Response: [N/A] Rhythm: [Sinus] ST - Response: [N/A] Patient Response: [No chest pain] Interpretation: 1. Uninterpretable Lexiscan pharmacological stress test due to underlying left bundle branch block 2. Nuclear images to be read, interpreted, and reported separately
== END 2025-08-30 07:52 | disposition home or self-care (01) ==
LOC: NM 07:51
PROVIDERS: PCP Family Medicine; Visit Provider Family Medicine
DX: R07.9 Chest pain, unspecified (principal)
CPT/HCPCS: 78452; 93017; A9500; J2785

== ENCOUNTER 2025-09-19 19:45 | Emergency (ER) | payer MEDICARE, MEDICAID, SELFPAY ==
--- OUTSIDE RECORDS SUMMARY | 2014-03-22 09:00 | XMS_ITS | Continuity of Care Document ---
Author Organization [employer] [facility] Address [address] [place] [address] [place] [address] Phone Care Team Providers Care Clinical Nursing Coordinator Name Role Phone Pavel Napoles MD Unavailable Unavailable Procedures Procedure Date OFFICE/OUTPATIENT VISIT, [facility] OFFICE/OUTPATIENT VISIT, [facility] [place] Advance Directives Directive Yes / No Effective Date File Name No Information Encounters Encounter Description Practice Location Reason(s) For Visit Diagnoses Date Provider Providers Copied on Encounter OFFICE/OUTPATI ENT VISIT, [facility] [employer] [facility], [address] [place] [address], [id number], tel:[phone] [facility] No Information Dony Zhao. [address] [place] [address], [id number], [place]. tel:[phone] Referring Provider: Pavel Trujillo, [address] [place] [address], [id number]. tel:[phone] OFFICE/OUTPATI ENT VISIT, [facility] [employer] [facility], [address] [place] [address], [id number], tel:[phone] [facility] No Information Dony Zhao. [address] [place] [address], [id number], [place]. tel:[phone] Referring Provider: Pavel Trujillo, [address] [place] [address], [address]. tel:[phone] Family History Family Member Type Diagnosis Age At Onset No Information Payers Payer name Insurance type Covered alliance party ID Authoriza tinapoleon(s) Medicare [id number] [place] [id number] Social History Type Description Quantity Date Captured Comments Sex Female Smoking Status No Information Chief Complaint And Reason For Visit No Information Reason For Referral Reason For Referral No Information History Of Present Illness Encounter Date Complaint History Of Prese nt Illness No Information Functional Status Date Functional Assessmen t No Information Instructions Date Instruction Additional Infor mation No Information Assessments Type Assessment Date No Information Patient Care Teams Name Effective Dates (start - stop) Status Members No Information
--- OUTSIDE RECORDS SUMMARY | 2022-08-19 07:02 | XMS_ITS | Continuity of Care Document ---
Author Organization [facility] Address [address] [place] [address] Phone Care Team Providers Care Foreign Legal Consultant Name Role Phone Sury Novoa MD Unavailable Unavailable Allergies, Adverse Reactions, Alerts Substance Reaction Status Criticality duloxetine Active No Information Sulfa (Sulfonamide Antibiotics) Active No Information PENICILLIN Active No Information aspirin Active No Information Medications Medication Instructions Dosage Effective Dates (start - stop) Status Comments Mag-G 27 mg magnesium (500 mg) tablet TAKE ONE TABLET BY MOUTH DAILY AT BEDTIME - Active oxycodone-acetaminophen 5 mg-325 mg tablet TAKE ONE TABLET BY MOUTH TWICE A DAY NEEDED FOR SPNDYLOSIS WITHOUR MYELOPATHY - Active topiramate 25 mg tablet - Ac tive midodrine 2.5 mg tablet TAKE ONE TABLET BY MOUTH TWICE A DAY - Active bumetanide 0.5 mg tablet - A ctive Vitamins Plus Low Iron 27 mg iron-1 mg tablet - Active nitrofurantoin monohydrate/macrocrystals 100 mg capsule - Active hydrocodone 5 mg-acetaminophen 325 mg tablet TAKE ONE TABLET BY MOUTH TWICE A DAY NEEDED FOR LUMBAR RADICULOPATHY - Active alendronate 70 mg tablet TAKE ONE TABLET BY MOUTH ONCE WEEKLY - Active allopurinol 100 mg tablet - Active tizanidine 4 mg tablet - Act junior hydroxyzine HCl 10 mg tablet TAKE 1 TO 2 TABLETS BY MOUTH EVERY 6 HOURS NEEDED FOR 30 DAYS - Active pantoprazole 40 mg tablet,delayed release TAKE ONE TABLET BY MOUTH TWICE A DAY - Active fluticasone propionate 50 mcg/actuation nasal spray,suspension - Active Symbicort 160 mcg-4.5 mcg/actuation HFA aerosol inhaler - Active Ventolin HFA 90 mcg/actuation aerosol inhaler - Active fluconazole 100 mg tablet - Active acetaminophen 300 mg-codeine 30 mg tablet - Active clopidogrel 75 mg tablet - A ctive PrePlus 27 mg iron-1 mg tablet - Active prednisone 10 mg tablet - Ac tive gabapentin 300 mg capsule - Active tramadol 50 mg tablet TAKE ONE TABLET BY MOUTH TWICE A DAY NEEDED - Active baclofen 10 mg tablet - Acti ve lidocaine 5 % topical patch APPLY 1 PATCH TOPICALLY ONCE DAILY TO MOST PAINFUL AREA (12 HOURS ON, 12 HOURS OFF) - Active lorazepam 0.5 mg tablet TAKE ONE TABLET BY MOUTH 45 TO 60 MINUTES PRIOR TO MRI ONCE DAILY FOR ONE DAY - Active methylprednisolone 4 mg tablets in a dose pack - Active potassium chloride ER 10 mEq tablet,extended release TAKE ONE TABLET BY MOUTH ONCE DAILY WITH FOOD - Active Procedures Procedure Date Offic Cons New/estab Mod-hi 60 22 Duplex Scan-extrem Veins; Comp 22 Advance Directives Directive Yes / No Effective Date File Name No Information Encounters Encounter Description Practice Location Reason(s) For Visit Diagnoses Date Provider Providers Copied on Encounter [facility], [address], [place], [id number], [place] tel:[phone] [facility] [place] No Information [address] [place] [place] [address] [facility], [place], [place], [id number], [place]. tel:[phone] Referring Provider: Conrad MCMULLEN, [address], [place], [address]. tel:[phone] Offic Cons New/estab Mod-hi 60 [facility] [place], [address], [place], [id number], [place] tel:[phone] [facility] - [place] Body mass index (BMI) 45.0-49.9, adultChronic venous hypertension w oth comp of r low extremLocalized edemaVenous insufficiency (chronic) (peripheral)Pers onal history of other venous thrombosis and embolism 2 Ana Phillips. [address] [facility], [place], [place], [id number], [place]. tel:[phone] Referring Provider: Conrad MCMULLEN, [address] [facility] [address], [place], [address]. tel:[phone] [facility] [place], [address], [place], [id number], [place] tel:[phone] [facility] Chronic venous htn w oth comp of bilateral low extrm [address] [place] [address] [place], [place], [id number], [place]. tel:[phone] Referring Provider: Conrad MCMULLEN, [address], [place], [address]. tel:[phone] Family History Family Member Type Diagnosis Age At Onset No Information Payers Payer name Insurance type Covered constitution party ID Authoriza tinapoleon(s) [employer] Medicare CI [id number] Social History Type Description Quantity Date Captured Comments Sex Female Smoking Status No Information Chief Complaint And Reason For Visit No Information Reason For Referral Reason For Referral No Information Plan Of Treatment Date Type Action Status Goal Diet education completed Referral Ordered: Duplex Scan-extrem Veins; Comp Bilateral leg ordered History Of Present Illness Encounter Date Complaint History Of Prese nt Illness No Information Functional Status Date Functional Assessmen t No Information Instructions Date Instruction Additional Infor mation Diet education Related to Body mass index [BMI] 45.0-49.9, adult Giving Encouragement to Exercise Related to Body mass index [BMI] 45.0-49.9, adult Patient education booklet given Related to Chrn Vns Hyprtnsn w/Compl (Pain Edema Swelling); RIGHT Assessments Type Assessment Date No Information Patient Care Teams Name Effective Dates (start - stop) Status Members No Information
--- OUTSIDE RECORDS SUMMARY | 2025-09-13 13:10 | XMS_ITS | Encounter Summary ---
Author Organization [facility] Address [address] [place] [address] Phone Care Team Providers Care Build Automation Engineer Name Role Phone Conrad Sosa DO Primary Care Provider Reason for Referral * Consultation (Routine) - AuthorizedSpecialtyDiagnoses / ProceduresReferred By ContactReferred To ContactCardiology Diagnoses Precordial pain Procedures Follow Up In Cardiology Luis Castanon MD [address] [place] [address], [address] [address] Phone: tel: fax: Luis Castanon MD [address] [place] [address], [address] [address] Phone: tel: fax: Referral IDStatusReasonStart DateExpiration DateVisits RequestedVisits [id number]/26/202511/26/202611 * Cardiovascular (Routine) - AuthorizedSpecialtyDiagnoses / ProceduresReferred By ContactReferred To Contact Diagnoses Dyspnea on exertion Precordial pain Procedures ECG 12 Lead Luis Castanon MD [address] [place] [address], [address] [address] Phone: tel: fax: Referral IDStatusReasonStart DateExpiration DateVisits RequestedVisits [id number]/26/202511/26/202611 Reason for Visit * ReasonCommentsNew Patient VisitNew patient visit for abnormal stress testing * Cardiovascular (Routine) - AuthorizedSpecialtyDiagnoses / ProceduresReferred By ContactReferred To Contact Diagnoses Dyspnea on exertion Precordial pain Procedures ECG 12 Lead Luis Castanon MD 7[address] [facility] 2, [address] [address] Phone: tel: fax: Referral IDStatusRosa DateExpiration DateVisits RequestedVisits [id number]/26/202511/26/202611 Encounter Details DateTypeDepartmentCare Team (Latest Contact Info)Veaervpohcc18/26/2025 1:10 PM ESTOffice Visit [facility] [address] [id number] Luis Castanon MD 703 [facility] 2, [address] [address] Precordial pain (Primary Dx); Chronic right-sided congestive heart failure (Multi); Pulmonary HTN (Multi); Dyspnea on exertion; Obstructive sleep apnea syndrome; BMI 37.0-37.9, adult; Never smoked tobacco Discharge Disposition: Home Social History Tobacco UseTypesPacks/DayYears UsedDateSmoking Tobacco: NeverSmokeless Tobacco: NeverAlcohol UseStandard Drinks/WeekCommentsYes0 (1 standard drink = 0.6 oz pure alcohol)rareCommentsUnknownSex and Gender InformationValueDate Recorded Sex Assigned at BirthNot on fileLegal KenEbutfn63/25/2022 1:39 PM ESTGender IdentityNot on fileSexual OrientationNot on filedocumented as of this encounter Last Filed Vital Signs Vital SignReadingTime TakenCommentsBlood Aeuokqgd903/6409/13/2025 1:39 PM EST Tertu469109/13/2025 1:39 PM ESTTemperature--Respiratory Rate--Oxygen Saturation-- Inhaled Oxygen Concentration--Szzptj95.8 kg (209 lb)09/13/2025 1:39 PM ESTHeight 160 cm (5' 3 )09/13/2025 1:39 PM ESTBody Mass Index37.02111/13/2024 1:39 PM EST documented in this encounter Functional Status * BPAnswerDate of OwkqjdpylmPainaw333/6409/13/2025 1:39 PM Nayeli Yu LPN * PulseAnswerDate of YyqfsnymzsXnkehp7284/26/2025 1:39 PM Nayeli Yu LPN documented as of this encounter Patient Instructions * Patient Instructions* Coty Shine LPN - 09/13/2025 1:10 PM EST Please bring all medicines, vitamins, and herbal supplements with you when you come to the office. Prescriptions will not be filled unless you are compliant with your follow up appointments or have a follow up appointment scheduled as per instruction of your physician. Refills should be requested at the time of your visit. BMI was above normal measurement. Current weight: 94.8 kg (209 lb) Weight change since last visit (-) denotes wt loss -39 lbs Weight loss needed to achieve BMI 25: 68.2 Lbs Weight loss needed to achieve BMI 30: 40 Lbs Provided instructions on dietary changes Provided instructions on exercise. Toprol xl 25 mg one daily Plavix 75 mg daily Heart cath Follow up results Follow up documented in this encounter Progress Notes * Luis Castanon MD - 09/13/2025 1:10 PM EST Chief Complaint Patient presents with New Patient Visit New patient visit for abnormal stress testing Subjective Renuka Padron is a 70 y.o. female HPI Patient here for cardiovascular care and to review recent positive stress test. She is 70-year-old whom I am seeing in the past for right heart failure. I have not seen her in almost 3 years. She recently was seen by her family physician was complaining of a recurrent episode of chest pain described as pressure occasionally with exertion and on sometimes occurred with emotional stress. She was referred for a stress test which showed large area o anterolateral wall ischemia. Patient continues tocomplain of intermittent lower extremity edema and she is on diuretic therapy. The result of her recent stress test and echocardiogram noted and reviewed with her. Assessment 1. Symptoms of chest pain suspicious of angina with recently positive stress test for large area ofanterolateral wall ischemia 2. Previous evaluation for volume volume overload and right-sided heart failure. Proved on low-dosediuretic therapy currently compensated 3. History of hypertension controlled 3. chronic kidney disease creatinine was 1 4. Obesity with BMI of 37 5. Diet-controlled diabetes mellitus 6. Classic symptoms of sleep apnea with positive sleep study in the past but patient report poor tolerance to CPAP line 7. Patient report previous cardiac catheterization back in 2014 in [place] was negative Plan 1. I reviewed the results of her recent stress test and echocardiogram. Patient reported history ofintolerance or allergy to aspirin. Will start Plavix 75 mg daily and Toprol-XL 25 mg daily 2. Will arrange for cardiac catheterization. Risk, benefit and alternative reviewed with her at length she understood and agreed. 3. I advised the patient that she should need to consider alternative treatment for her sleep apneaincluding possible surgery and or implantable device. She will discuss with her aircraft stress analyst 4. I reviewed her recent lab work 5. I counseled her regarding losing weight and exercise 6. I will see her after heart cath is done Review of Systems Cardiovascular: Positive for chest pain. Neurological: Positive for light-headedness. All other systems reviewed and are negative. Vitals: 09/13/25 1339 BP: 108/64 BP Location: Left arm Patient Position: Sitting Pulse: 66 Weight: 94.8 kg (209 lb) Height: 1.6 m (5' 3 ) EKG done in office today Objective Physical Exam Constitutional: Appearance: Normal appearance. HENT: Nose: Nose normal. Neck: Vascular: No carotid bruit. Cardiovascular: Rate and Rhythm: Normal rate. Pulses: Normal pulses. Heart sounds: Normal heart sounds. Pulmonary: Effort: Pulmonary effort is normal. Abdominal: General: Bowel sounds are normal. Palpations: Abdomen is soft. Musculoskeletal: General: Normal range of motion. Cervical back: Normal range of motion. Right lower leg: No edema. Left lower leg: No edema. Skin: General: Skin is warm and dry. Neurological: General: No focal deficit present. Mental Status: She is alert. Psychiatric: Mood and Affect: Mood normal. Behavior: Behavior normal. Thought Content: Thought content normal. Judgment: Judgment normal. Allergies Aspirin, Penicillins, Sulfa (sulfonamide antibiotics), Adhesive tape-silicones, and Latex Current Medications Current Outpatient Medications Medication Instructions albuterol 2.5 mg, Every 6 hours PRN alendronate (FOSAMAX) 70 mg, Every 7 days allopurinol (ZYLOPRIM) 200 mg, Daily bumetanide (Bumex) 0.5 mg tablet 1 tablet, 2 times daily clopidogrel (PLAVIX) 75 mg, oral, Daily dapagliflozin propanediol (FARXIGA) 10 mg, Every 24 hours ferrous sulfate 324 mg (65 mg elemental iron) EC tablet (delayed release) 1 tablet, Daily fluconazole (DIFLUCAN) 100 mg, Daily fluticasone (Flonase) 50 mcg/actuation nasal spray 2 sprays, Daily gabapentin (Neurontin) 300 mg capsule 1 capsule, 3 times daily hydrOXYzine HCL (ATARAX) 10 mg, 3 times daily loratadine (Claritin) 10 mg tablet 1 tablet, Daily PRN magnesium oxide (MAG-OX) 400 mg, Daily metoprolol succinate XL (TOPROL-XL) 25 mg, oral, Daily, Do not crush or chew. ondansetron (Zofran) 4 mg tablet 1 tablet, Every 8 hours PRN oxyCODONE-acetaminophen (Percocet) 5-325 mg tablet 1 tablet, Every 6 hours PRN pantoprazole (PROTONIX) 40 mg, 2 times daily temazepam (Restoril) 30 mg capsule 1 capsule, Nightly PRN tiZANidine (ZANAFLEX) 4 mg, 2 times daily topiramate (TOPAMAX) 200 mg, 2 times daily Assessment/Plan 1. Precordial pain ECG 12 Lead Cardiac Catheterization - Onbase Scan Follow Up In Cardiology metoprolol succinate XL (Toprol-XL) 25 mg 24 hr tablet clopidogrel (Plavix) 75 mg tablet 2. Chronic right-sided congestive heart failure (Multi) 3. Pulmonary HTN (Multi) 4. Dyspnea on exertion ECG 12 Lead Cardiac Catheterization - Onbase Scan 5. Obstructive sleep apnea syndrome 6. BMI 37.0-37.9, adult 7. Never smoked tobacco Scribe Attestation By signing my name below, Coty Blackwood LPN , Scribe attest that this documentation has been prepared under the direction and in the presence of MD Josefa. Provider Attestation - Scribe documentation All medical record entries made by the Scribe were at my direction and personally dictated by me. Ihave reviewed the chart and agree that the record accurately reflects my personal performance of the history, physical exam, discussion and plan. documented in this encounter Plan of Treatment DateTypeDepartmentCare Team (Latest Contact Info)Gyzpzpbtobx25/14/2026 2:20 PM ESTOffice Visit [facility] [address] [address] Luis Castanon MD 703 [facility] 2, [address] [address] NameTypePriorityAssociated DiagnosesOrder ScheduleCardiac Catheterization - Onbase ScanCardiac CathRoutine Dyspnea on exertion Precordial pain Ordered: 09/13/2025documented as of this encounter Procedures Procedure NamePriorityDate/TimeAssociated DiagnosisCommentsECG 12-LEADRoutine 09/13/2025 1:10 PM EST Dyspnea on exertion Precordial pain documented in this encounter Results * ECG 12 Lead (09/13/2025 1:10 PM EST)Specimen (Source)Anatomical Location / LateralityCollection Method / VolumeCollection TimeReceived Time Narrative CPACS - 09/13/2025 2:16 PM EST Normal sinus rhythm with right axis and intraventricular conduction delay Authorizing ProviderResult TypeResult StatusMourdianne Castanon MDECG ORDERABLES Final ResultPerforming OrganizationAddressCity/State/ZIP CodePhone Number CPACS documented in this encounter Visit Diagnoses Diagnosis Precordial pain- Primary Chronic right-sided congestive heart failure (Multi) Congestive heart failure, unspecified Pulmonary HTN (Multi) Dyspnea on exertion Other dyspnea and respiratory abnormality Obstructive sleep apnea syndrome Obstructive sleep apnea (adult) (pediatric) BMI 37.0-37.9, adult Never smoked tobacco documented in this encounter Additional Health Concerns AssessmentNoted TimeA fall risk assessment has been completed for the patient 09/13/2025 1:24 PM ESTdocumented as of this encounter Care Teams Team MemberRelationshipSpecialtyStart DateEnd Date Conrad Sosa DO [address] [place] [id number] PCP - Djxjcrk77/8/22documented as of this encounter
[2025-09-19] VITALS (18 sets, daily range): BP systolic 117–130; BP diastolic 48–68; PULSE 47–81; TEMP 36.4–36.6; O2SAT 86–100; BMI 37.0
--- NOTE | 2025-09-19 20:08 | ED_ITS ---
HPI HPI - Fall General Chief Complaint: Fall Stated Complaint: FELL OFF FRONT PORCH AND HIT HER HEAD, BACK, NECK Time Seen by Provider: 09/19/25 19:59 Source: patient Mode of arrival: walk-in History of Present Illness HPI Narrative: fell about 2 feet off of her porch on to concrete outside . injured right chest and struck her head. No LOC or dizziness. No paresthesia of her extremities. Not sure how she loss her balance Related Data Home Medications ?Medication ?Instructions ?Recorded ?Confirmed albuterol sulfate 90 mcg/actuation inhalation 09/19/25 aerosol inhaler alendronate 70 mg tablet mg PO 09/19/25 allopurinol 100 mg tablet mg 09/19/25 bumetanide 1 mg tablet mg 09/19/25 clopidogrel 75 mg tablet mg 09/19/25 dapagliflozin propanediol 10 mg 10 mg PO DAILY 5 09/19/25 tablet (Farxiga) ergocalciferol (vitamin D2) 1,250 09/19/25 mcg (50,000 unit) capsule gabapentin 300 mg capsule mg 09/19/25 losartan 25 mg tablet mg 09/19/25 metoprolol succinate 25 mg mg PO 09/19/25 tablet,extended release 24 hr oxycodone-acetaminophen 5 mg-325 tab 09/19/25 mg tablet pantoprazole 40 mg tablet,delayed mg PO 09/19/25 release rosuvastatin 10 mg tablet (Crestor) 10 mg PO DAILY 12/1309/19/25 temazepam 15 mg capsule (Restoril) mg 09/19/25 tizanidine 4 mg tablet mg 09/19/25 topiramate 200 mg tablet mg 09/19/25 Allergies Allergy/AdvReac Type Severity Reaction Status Date / Time aspirin Allergy Unknown Verified 06/01/23 13:46 furosemide (From Lasix) Allergy Unknown Verified 06/01/23 13:46 latex Allergy Unknown Verified 06/01/23 13:46 nabumetone Allergy Unknown Verified 06/01/23 13:46 Penicillins Allergy Unknown Verified 06/01/23 13:46 Sulfa (Sulfonamide Allergy Unknown Verified 06/01/23 13:46 Antibiotics) adhesive Allergy Unknown Uncoded 06/01/23 13:46 Opioid HPI Opioid Management Most Recent Pain and Opioid Data: 2 Last Pain Scale 5 Today, 21:38 Last ED Pain Assessment Today, 21:38 Review of Systems 2 ROS0 Status of ROS 10 or more systems reviewed and unremark able except as noted in history and below [facility] Social History Smoking status: Never smoker Little interest or pleasure in doing things: not at all Feeling down, depressed, or hopeless: not at all Exam Constitutional Vital Signs, click to edit/add: Last Vital Signs Temp 97.6 F 09/19/25 19:50 Pulse 81 09/19/25 19:50 Resp 18 09/19/25 19:50 BP 130/65 09/19/25 19:50 Pulse Ox 95 09/19/25 19:50 Common normals: no apparent distress, oriented x3, no limitations, healthy appearing, alert and well nourished HENMT Nose: other (focal small occipital contusion) Eye Common normals: PERRL and EOMs intact bilaterally Neck & C-Spine Common normals: full ROM Neck images: 2 1. mild tenderness Chest Other: right posterior rib cage and right CVA mild tenderness Respiratory Common normals: normal respiratory effort, no retractions, no use of accessory muscles and clear to auscultation bilaterally Cardio Common normals: regular rate, regular rhythm, S1 normal heart sound and S2 normal heart sound GI Common normals: Normal to inspection, nondistended, normoactive bowel sounds present, soft to palpation and non-tender Extremity Common normals: normal to inspection Other: mild tenderness left hip Neuro Common normals: oriented x3, CN's II-XII intact bilaterally, moves all extremities, no focal motor deficits and no sensory deficits noted Psych Appearance: grossly normal Course Vital Signs Vital signs: Vital Signs Temperature 97.6 F 09/19/25 19:50 Pulse Rate 81 09/19/25 19:50 Respiratory Rate 18 09/19/25 19:50 Blood Pressure 130/65 09/19/25 19:50 Pulse Oximetry 95 09/19/25 19:50 Temperature 97.6 F 09/19/25 19:50 Pulse Rate 81 09/19/25 19:50 Respiratory Rate 18 09/19/25 19:50 Blood Pressure 130/65 09/19/25 19:50 Pulse Oximetry 95 09/19/25 19:50 MDM - Fall MDM Narrative Medical decision making narrative: patient loss her balance and fell about 2 ft off of her porch onto the ground. Fell onto her right side. Did strike her head. No LOC, nausea, dizziness. Has pain right posterior rib cage and right CVA. also mild left hip tenderness. CTs brain, C-spine, CT chest, CT abd/pelvis without acute changes. Xray with ? findings left hip but CT without equivocal findings. UA nitrite poitive. 0-2 wbc and moderate gerri. Patient denies any urinary symptoms. No urgency, dysuria, frequency etc. Patient informed of the plan to culture her Urine. No antibiotic ordered. She is discharged home in stable conditiona and advised to follow up with her doctor in the next 2-3 days for recheck Lab Data Labs: Lab Results 09/19/25 09/19/25 Range/Units 20:30 22:33 WBC 8.6 (4.0-11.0) 10^3/uL RBC 4.50 (4.20-5.40) 10^6/uL Hgb 12.7 (12.0-16.0) g/dL Hct 40.1 (36.0-48.0) % MCV 89.1 (81.0-99.0) fL MCH 28.2 (26.7-34.0) pg MCHC 31.7 (29.9-35.2) g/dL RDW 13.8 (11.0-15.0) % Plt Count 284 (150-450) 10^3/uL MPV 10.2 (9.5-13.5) fL Neut % (Auto) 68.1 (43.0-75.0) % Lymph % (Auto) 18.8 L (20.5-60.0) % Rich % (Auto) 7.5 (1.7-12.0) % Eos % (Auto) 3.9 (0.9-7.0) % Baso % (Auto) 1.3 (0.2-2.0) % Neut # (Auto) 5.8 (1.4-6.5) 10^3/uL Lymph # (Auto) 1.6 (1.2-3.8) 10^3/uL Rich # (Auto) 0.6 (0.3-0.8) 10^3/uL Eos # (Auto) 0.3 (0.0-0.7) 10^3/uL Baso # (Auto) 0.1 (0.0-0.1) 10^3/uL Abs Immat Gran (auto) 0.03 (0.00-0.03) 10^3/uL Imm/Tot Granulo (auto) 0.4 (0.0-0.5) % Sodium 141 (136-145) mmol/L Potassium 3.6 (3.5-5.1) mmol/L Chloride 106 (98-107) mmol/L Carbon Dioxide 27.7 (21.0-32.0) mmol/L Anion Gap 10.9 BUN 41.0 H (7.0-18.0) mg/dL Creatinine 1.64 H (0.55-1.02) mg/dL Est GFR ( Amer) 38 L (>=60 mL/min/1.73m^2) Est GFR (Non-Af Amer) 31 L (>=60 mL/min/1.73m^2) BUN/Creatinine Ratio 25.0 Glucose 111 H (74-106) mg/dL Lactate 1.0 (0.4-2.0) mmol/L Calcium 9.2 (8.5-10.1) mg/dL Total Bilirubin 0.2 (0.2-1.0) mg/dL AST 17 (15-37) U/L ALT 19 (14-59) U/L Alkaline Phosphatase 87 (46-116) U/L Troponin I High Sens 10.6 (4.0-51.3) pg/mL Total Protein 7.6 (6.4-8.2) g/dL Albumin 3.7 (3.4-5.0) g/dL Globulin 3.9 g/dL Albumin/Globulin Ratio 0.9 Urine Color Lt. yellow (YELLOW) Urine Clarity Clear (CLEAR) Urine pH 6.0 (5.0-9.0) Ur Specific [place] 1.010 (1.005-1.025) Urine Protein Negative (NEG/TRACE) mg/dL Urine Glucose (UA) 250 A (NEGATIVE) mg/dL Urine Ketones Negative (NEGATIVE) mg/dL Urine Occult Blood Negative (NEGATIVE) Urine Nitrite Positive A (NEGATIVE) Urine Bilirubin Negative (NEGATIVE) Urine Urobilinogen 0.2 (0.2-1.0) EU/dL Ur Leukocyte Esterase Negative (NEGATIVE) Urine RBC None seen (0-2) #/HPF Urine WBC 0-2 A (NONE SEEN) #/HPF Ur Squamous Epith Cells None seen (NONE/RARE) #/LPF Urine Crystals None seen (None Seen) #/HPF Urine Bacteria Moderate A (NONE SEEN) #/HPF Urine Casts None seen (NONE SEEN) #/LPF Urine Mucus None seen (NONE SEEN) Ur Culture Indicated? Yes-[facility] Discharge Plan Discharge Chief Complaint: Fall Clinical Impression: Minor closed head injury, Cervical muscle strain, Contusion of rib, Contusion of right flank Patient Disposition: Home, Self-Care Prescriptions / Home Meds: No Action losartan 25 mg tablet rosuvastatin [Crestor] 10 mg tablet 10 mg PO DAILY tizanidine 4 mg tablet gabapentin 300 mg capsule metoprolol succinate 25 mg tablet extended release 24 hr PO ergocalciferol (vitamin D2) 1,250 mcg (50,000 unit) capsule dapagliflozin propanediol [Farxiga] 10 mg tablet 10 mg PO DAILY clopidogrel 75 mg tablet temazepam [Restoril] 15 mg capsule alendronate 70 mg tablet PO allopurinol 100 mg tablet pantoprazole 40 mg tablet,delayed release (DR/EC) PO bumetanide 1 mg tablet topiramate 200 mg tablet albuterol sulfate 90 mcg/actuation HFA aerosol inhaler INHALATION oxycodone-acetaminophen 5-325 mg tablet Print Language: Thai Instructions: Head Injury (ED), Contusion in Adults (ED), Cervical Sprain (ED) Referrals: PETER ZHOU DO [Primary Care Provider, Family Practice] - 1 week
--- NOTE | 2025-09-19 20:08 | CT_ITS ---
The [address] [address] Patient Name: CASTILLO GRAHAM MRN: [id number] date: 1955 Sex: F Assigned Patient Location: ER Current Patient Location: ER Accession/Order Number: [id number] Exam Date: 09/19/2025 21:11 Report Date: 09/19/2025 22:08 At the request of: CHANTELL CAMPBELL MD Procedure: CT abdomen pelvis w con CT ABDOMEN AND PELVIS WITH INTRAVENOUS CONTRAST: CLINICAL HISTORY: fall. right CVA tenderness, left hip tenderness COMPARISON: None TECHNIQUE: Spiral images were obtained through the abdomen and pelvis following the administration of intravenous contrast. This CT exam was performed using one or more following dose reduction techniques: Automated exposure control, adjustment of the mA and/or kV according to patient size, or use of iterative reconstruction technique. FINDINGS: Lung Bases: [Cardiac megaly. Minimal bibasilar atelectasis or scarring.] Organs:Subcentimeter liver hypodensity likely cysts too small for characterization. Gallbladder appears contracted. Otherwise the liver, spleen, adrenals, kidneys, unremarkable. Fatty replacement of pancreas.[ GI: Postsurgical changes of the stomach. No evidence of bowel obstruction. Suspected postsurgical changes the cecum related to prior appendectomy. Colonic diverticulosis.[ Pelvis:[Bladder unremarkable. Uterus atrophic. No adnexal mass.] Peritoneum/Retroperitoneum:No free air or free fluid. Tiny fat-containing umbilical hernia. Aorta normal in caliber. No pathologic adenopathy.[ Abd wall/Bones:Multilevel facet arthropathy lumbar spine. No definite acute placed hip or pelvic fracture. Heterotopic calcifications anterior to the left hip head and neck junction may account for the femur x-ray findings. CT/CT abdomen pelvis w con IMPRESSION: Negative for acute posttraumatic process. Impression dictated by: Joey Oneill M.D. 09/19/2025 10:08 PM Dictation Location: [place] [address] Electronically authenticated by: [id number] Y Date: 09/19/2025 22:08
--- NOTE | 2025-09-19 20:08 | CT_ITS ---
The [address] [address] Patient Name: CASTILLO GRAHAM MRN: [id number] date: 1955 Sex: F Assigned Patient Location: ER Current Patient Location: ER Accession/Order Number: [id number] Exam Date: 09/19/2025 21:11 Report Date: 09/19/2025 22:00 At the request of: CHANTELL CAMPBELL MD Procedure: CT head/brain wo con CT BRAIN WITHOUT CONTRAST: CLINICAL HISTORY: fall COMPARISON: None TECHNIQUE: Contiguous axial unenhanced images were obtained through the brain. This CT exam was performed using one or more following dose reduction techniques: Automated exposure control, adjustment of the mA and/or kV according to patient size, or use of iterative reconstruction technique. FINDINGS: There is no evidence of midline shift, intra or extra-axial fluid collection, hemorrhage or CT evidence of of acute large vascular stroke. Mild periventricular and subcortical hypoattenuation suggestive of chronic small vessel ischemic disease. Visualized intraorbital contents appear unremarkable. Left sphenoid sinus air-fluid level. The surrounding soft tissues are normal. CT/CT head/brain wo con IMPRESSION: NO ACUTE INTRACRANIAL ABNORMALITY. MILD CHRONIC SMALL VESSEL CHANGES Impression dictated by: Joey Oneill M.D. 09/19/2025 10:00 PM Dictation Location: [place] [address] Electronically authenticated by: [id number] Y Date: 09/19/2025 22:00
--- NOTE | 2025-09-19 20:08 | CT_ITS ---
The [address] [address] Patient Name: CASTILLO GRAHAM MRN: [id number] date: 1955 Sex: F Assigned Patient Location: ER Current Patient Location: ER Accession/Order Number: [id number] Exam Date: 09/19/2025 21:11 Report Date: 09/19/2025 22:03 At the request of: CHANTELL CAMPBELL MD Procedure: CT cervical spine wo con CT CERVICAL SPINE WITHOUT CONTRAST WITH 3D RECONSTRUCTIONS: CLINICAL HISTORY: fall COMPARISON: None TECHNIQUE: Spiral axial unenhanced images were obtained through the cervical spine. Sagittal, coronal and 3D volume-rendered reconstructions were also reviewed. This CT exam was performed using one or more following dose reduction techniques: Automated exposure control, adjustment of the mA and/or kV according to patient size, or use of iterative reconstruction technique. FINDINGS: Mild multilevel changes. No evidence acute fracture malalignment. Mild reversal may relate to positioning or muscle spasm. Prevertebral soft tissues unremarkable. CT/CT cervical spine wo con IMPRESSION: NO CERVICAL SPINE FRACTURE Impression dictated by: Joey Oneill M.D. 09/19/2025 10:03 PM Dictation Location: [facility] Electronically authenticated by: [id number] Y Date: 09/19/2025 22:03
--- NOTE | 2025-09-19 20:08 | CT_ITS ---
The [address] [address] Patient Name: CASTILLO GRAHAM MRN: [id number] date: 1955 Sex: F Assigned Patient Location: ER Current Patient Location: ER Accession/Order Number: [id number] Exam Date: 09/19/2025 21:11 Report Date: 09/19/2025 22:12 At the request of: CHANTELL CAMPBELL MD Procedure: CT chest w con CT CHEST WITH INTRAVENOUS CONTRAST: CLINICAL HISTORY: fall. right chest wall tenderness COMPARISON: None TECHNIQUE: Spiral images were obtained through the chest following intravenous administration of IV contrast. This CT exam was performed using one or more following dose reduction techniques: Automated exposure control, adjustment of the mA and/or kV according to patient size, or use of iterative reconstruction technique. FINDINGS: Mediastinum:Cardiac megaly. No pericardial effusion. No pathologically enlarged mediastinal or hilar adenopathy. Lungs:There are groundglass opacities which may be related to air trapping versus hypoventilatory changes. No confluent airspace disease effusion or pneumothorax. Minimal bibasilar atelectasis and or scarring. Abd: Please see separately dictated CT abdomen pelvis. [] Soft tissues/Bones: [Multilevel changes of the thoracic spine finding. No compression fracture. No displaced rib fracture.] CT/CT chest w con IMPRESSION: Negative acute posttraumatic process. Scattered groundglass opacities possibly related to air trapping versus hypoventilatory changes. Impression dictated by: Joey Oneill M.D. 09/19/2025 10:12 PM Dictation Location: [facility] Electronically authenticated by: [id number] Y Date: 09/19/2025 22:12
--- NOTE | 2025-09-19 20:11 | XR_ITS ---
The [address] [address] Patient Name: CASTILLO GRAHAM MRN: [id number] date: 1955 Sex: F Assigned Patient Location: ED.MAIN Current Patient Location: ER Accession/Order Number: [id number] Exam Date: 09/19/2025 21:11 Report Date: 09/19/2025 21:32 At the request of: CHANTELL CAMPBELL MD Procedure: XR femur LT 2V 2 views left femur INDICATION: Fall, left-sided tenderness COMPARISON: None FINDINGS: Questionable subcapital lucency.. Unclear if this is likely artifact from the acetabular wall versus nonspecific fracture. Remainder of the normal femur is otherwise layering intact. Posterior changes involving the knee noted XR/XR femur LT 2V Impression: Questionable lucency subcapital region noted unclear is is artifact versus a nondisplaced fracture Impression dictated by: Joey Oneill M.D. 09/19/2025 9:32 PM Dictation Location: [place] [address] Electronically authenticated by: [id number] Y Date: 09/19/2025 21:32
--- OUTSIDE RECORDS SUMMARY | 2025-09-19 20:18 | XMS_ITS | Clinical Summary ---
Author Organization [facility] Address [address] [place] [address] Phone Care Team Providers Care Faculty Administrator Name Role Phone Conrad Sosa DO Primary Care Provider Allergies Active AllergyReactionsCriticalityNoted DateCommentsAdhesive Tape-SiliconesHives 5AspirinHives,Rash,Shortness of breath,VkyystwAwnx47/09/2013LatexHives, Itching,FphdLwj57/06/2023PenicillinsShortness of breath,Hives,Rash,ItchingHigh 08/29/2009Sulfa (Sulfonamide Antibiotics)Shortness of breath,Hives,Itching,Rash High08/29/2009 Medications MedicationSigDispense QuantityRefillsLast FilledStart DateEnd DateStatus albuterol [...] mouth once daily as needed for allergies.Active ferrous sulfate 324 mg (65 mg elemental [...] (241.3 mg magnesium) tablet Take 1 tablet by mouth once daily.Active ondansetron (Zofran) 4 mg tablet Take 1 tablet (4 mg) by mouth every 8 hours if needed for nausea or vomiting. 03/07/2021ctive pantoprazole (ProtoNix) 40 mg EC tablet Take 1 tablet (40 mg) by mouth twice a day.05/06/2019Active temazepam (Restoril) 30 mg capsule Take 1 capsule (30 mg) by mouth as needed at bedtime for sleep or anxiety. 05/06/2019Active tiZANidine (Zanaflex) 4 mg capsule Take 1 capsule (4 mg) by mouth 2 times a day.Active topiramate (Topamax) 200 mg tablet Take 1 tablet (200 mg) by mouth 2 times a day.Active oxyCODONE-acetaminophen (Percocet) 5-325 mg tablet Take 1 tablet by mouth every 6 hours if needed for severe pain (7 - 10).Active dapagliflozin propanediol (Farxiga) 10 mg tablet Take 1 tablet (10 mg) by mouth once every 24 hours.Active metoprolol succinate XL (Toprol-XL) 25 mg 24 hr tablet Indications:Precordial painTake 1 tablet (25 mg) by mouth once daily. Do not crush or chew. 30 tablet ctive clopidogrel (Plavix) 75 mg tablet Indications:Precordial painTake 1 tablet (75 mg) by mouth once daily. 30 tablet ctive clopidogrel (Plavix) 75 mg tablet Take 1 tablet (75 mg) by mouth once daily./Discontinued (Therapy completed) midodrine (Proamatine) 2.5 mg tablet Take 1 tablet (2.5 mg) by mouth 2 times a day as needed. Discontinued(Therapy completed) tirzepatide (Mounjaro) 2.5 mg/0.5 mL pen injector Inject under the skin.Discontinued(Therapy completed) budesonide-formoteroL (Symbicort) 160-4.5 mcg/actuation inhaler Inhale 2 puffs twice a day.09/13/2025Discontinued(Therapy completed) Active Problems ProblemNoted DateDiagnosed DateANS (arteriolar nephrosclerosis)09/13/2025 Gastroesophageal reflux disease without xzznldlhojm02/26/2025Hyperparathyroidism 09/13/2025Vitamin B12 /26/2025MI 37.0-37.9, adult09/13/2025bnormal stress test09/13/2025Precordial pain09/13/2025Never smoked gdoqxza0209/13/2025 Diabetes sdphiixj72/02/2025ute renal /17/2024Iron deficiency vthpdh9402/03/2024LAD (lymphadenopathy) of left cervical ejedmm1202/03/2024Lingual tonsil exjtgqpitpi80/17/2024LPRD (laryngopharyngeal reflux disease)02/03/2024 Multinodular jxbpis8002/03/20242542Rngwrmohmkzkqqxm74/17/2024ecurrent acute deep vein thrombosis (DVT) of right lower svdsiuunf53/17/2024Thyroid qjhbdk4502/03/2024 Chronic right-sided congestive heart lggsnrm7209/23/2023KD (chronic kidney disease), stage III09/23/20233575Wnlyqgize18/06/9351Ipnlk64/06/2023Hypotension 09/23/2023History of bariatric xracjtq5109/23/2023Obstructive sleep apnea syndrome 09/23/2023OPD (chronic obstructive pulmonary disease)03/17/2023Vitamin D biemuqpknc19/23/2023Dyspnea on /09/2018Pulmonary HTN07/06/2017 Resolved Problems ProblemNoted DateDiagnosed DateResolved DateAtherosclerotic heart disease of [place] coronary artery with other forms of angina bbegbyku43 Encounters DateTypeDepartmentCare PvhsBxcrekzxbkf69/01/2025Telephone [facility] Medical [facility] Building [address] [facility] [address] [place] [address] Luis Castanon MD 09/15/2025Telephone [facility] Primary Care [address] [place] [address] [address] [place] [address] Luis Castanon MD 09/13/2025 1:10 PM ESTOffice Visit [facility] [address] [place] [address] [address] [place] [address] Luis Castanon MD Precordial pain (Primary Dx); Chronic right-sided congestive heart failure (Multi); Pulmonary HTN (Multi); Dyspnea on exertion; Obstructive sleep apnea syndrome; BMI 37.0-37.9, adult; Never smoked tobacco Discharge Disposition: Home09/13/20258358Ucsxqm72/21/2025Telephone [facility] [address] [facility] [address] [place] [address] Generic Provider, No Assigned PcpMD 08/29/2025Orders Only [facility] [address] Virtual [place] [phone] Scanning, Generic Provider 07/03/2025Scanned Document [facility] [address] Virtual [place] [address] Scanning, Generic Provider from Last 3 Months Immunizations ImmunizationAdministration DatesNext DueFlu vaccine, quadrivalent, no egg protein, age 6 month or greater (FLUCELVAX)08/02/2019Influenza, Seasonal, Quadrivalent, Vycrasqiwh25/20/2022Influenza, Juezkqibqbf04/01/2020Influenza, injectable, MDCK, bywbyvgmipqe87/01/2018Influenza, trivalent, adjuvanted 08/10/2024,08/06/2020Pneumococcal conjugate vaccine, 13-valent (PREVNAR 13) 07/19/2018Pneumococcal polysaccharide vaccine, 23-valent, age 2 years and older (PNEUMOVAX 23)08/19/2020,08/02/2019,07/19/2019,12/18/2011 Social History Tobacco UseTypesPacks/DayYears UsedDateSmoking Tobacco: NeverSmokeless Tobacco: NeverAlcohol UseStandard Drinks/WeekCommentsYes0 (1 standard drink = 0.6 oz pure alcohol)rareCommentsUnknownSex and Gender InformationValueDate Recorded Sex Assigned at BirthNot on fileLegal ZpdRnoxqz82/25/2022 1:39 PM ESTGender IdentityNot on fileSexual OrientationNot on file Last Filed Vital Signs Vital SignReadingTime TakenCommentsBlood Lqugeyrr401/6409/13/2025 1:39 PM EST Xfafi657509/13/2025 1:39 PM ESTTemperature--Respiratory Rate--Oxygen Saturation-- Inhaled Oxygen Concentration--Vsgait68.8 kg (209 lb)09/13/2025 1:39 PM ESTHeight 160 cm (5' 3 )09/13/2025 1:39 PM ESTBody Mass Index37.02111/13/2024 1:39 PM EST Plan of Treatment DateTypeDepartmentCare Team (Latest Contact Info)Phuzdfwnecw92/14/2026 2:20 PM ESTOffice Visit [facility] [address] [address] Luis Castanon MD [address] [employer] [address], [address] [address] Health MaintenanceDue DateLast DoneCommentsCT Fdlvagfavbop1955Colonoscopy 5Colorectal Cancer Jotvtkbad1955Diabetes: Urine Protein Screening 1955FIT-DNA (Cologuard)1955FIT1955Lipid Panel1955 Zynrpcpoqrytu1955MMR Vaccines (1 of 1 - Standard series)1956 Diabetes: Retinopathy Mjarvwiic89/08/1965Hepatitis C Sixpitbjm61/08/1973 DTaP/Tdap/Td Vaccines (1 - Tdap)07/26/19771853Yqlqyhnhb09/08/1995RSV High Risk: (Elderly (60+) or Population) (1 - Risk 50-74 years 1-dose series) 2005Zoster Vaccines (1 of 2)2005Diabetes: Hemoglobin A1C06/19/2023 03/19/2023, 2Creatinine Level/otassium Level /12/2022Influenza Vaccine (#1)/, 08/26/2023, 08/07/2022, Additional history existsCOVID-19 Vaccine ( - season) 2025one Density Scan, 06/09/2022Echocardiogram , 01/05/2025, 02/08/2020Medicare Annual Wellness Visit (AWV) /10/2024, 02/17/2024, 03/05/2023, Additional history exists Pneumococcal KxstgifGwdxvanlc24/01/2020, 08/02/2019, 07/19/2019, Additional history existsHIB VaccinesAged OutNo longer eligible based on patient's age to complete this topicHPV VaccinesAged OutNo longer eligible based on patient's age to complete this topicHepatitis A VaccinesAged OutNo longer eligible based on patient's age to complete this topicHepatitis B VaccinesAged OutNo longer eligible based on patient's age to complete this topicIPV VaccinesAged OutNo longer eligible based on patient's age to complete this topicMeningococcal VaccineAged OutNo longer eligible based on patient's age to complete this topic Rotavirus VaccinesAged OutNo longer eligible based on patient's age to complete this topic Procedures Procedure NamePriorityDate/TimeAssociated DiagnosisCommentsECG 12-LEADRoutine 09/13/2025 1:10 PM EST Dyspnea on exertion Precordial pain NUCLEAR STRESS TEST - ONBASE SCAN08/29/2025 OYJZMJEPZGUOCQZfhsday35/22/2020 from Last 3 Months or Most Recently Relevant to Health Maintenance Results * ECG 12 Lead (09/13/2025 1:10 PM EST)Specimen (Source)Anatomical Location / LateralityCollection Method / VolumeCollection TimeReceived Time Narrative CPA - 09/13/2025 2:16 PM EST Normal sinus rhythm with right axis and intraventricular conduction delay Authorizing ProviderResult TypeResult StatusMowilda Castanon MDECG ORDERABLES Final ResultPerforming OrganizationAddressCity/State/ZIP CodePhone Number CPA * Nuclear Stress Test - Onbase Scan (08/29/2025) Narrative 08/29/2025 Ordered by an unspecified provider. Authorizing ProviderResult TypeResult StatusGeneric Provider ScanningCV STRESS PROCEDURESFinal Result * Echocardiogram (02/08/2020)Specimen (Source)Anatomical Location / Laterality Collection Method / VolumeCollection TimeReceived Time02/08/2020 Narrative [facility] - 02/08/2020 12:00 AM EDT ?[address], [place] [address] ? TRANSTHORACIC ECHOCARDIOGRAM REPORT Patient Name: ? VILMA GRAHAM Reading Physician: ?? [id number] Luis Castanon MD Study Date: ? 02/08/2020 Referring Physician: Martell Castanon MD MRN/PID: ?[id number] ??PCP: ? Conrad Sosa Accession/Order#: [id number] Department Location: [facility] Date of : ?1955 Fellow: Gender: ? F ? Nurse: Admit Date: ? Cork Wirer: ? Jennifer Kaur R RDCS, RVT Height: ? 160.02 cm CC Report to: Weight: ? 111.59 kg Study Type: ?Echocardiogram BSA: ?2.11 m2 Blood Pressure: 142 /80 mmHg Diagnosis/ICD: R06.02-Shortness of breath Indication: ?Right CHF, COPD, Diabetes, HTN, Edema, Forme Smoker, JEREMY, ? CKD-Stage IV, Morbid Obesity-s/p Gastric Bypass Procedure/CPT: Echo Complete w Full Doppler-[id number] Study Detail: The following Echo studies were [...] PIEDV: ?1.65 m/s PADP: ? 15.9 mmHg [id number] Luis Castanon MD Electronically signed on 02/08/2020 at 4:38:48 PM Final Procedure Note Conversion, Syngo - 11/21/[address], [address] [facility], [place] [address] TRANSTHORACIC ECHOCARDIOGRAM REPORT Patient Name: VILMA GRAHAM Marleni Physician: [id number] Luis Croft Study Date: 02/08/2020 Referring Physician: [id number] Luis LavellejohnFidel MRN/PID: [id number] PCP: Conrad Sosa Accession/Order#: [id number] Department Location: [facility] Date of : 1955 Fellow: Gender: F Nurse: Admit Date: Cork Wirer: Jennifer Ceballos RDCS,RVT Height: 160.02 cm CC Report to: Weight: 111.59 kg Study Type: Echocardiogram BSA: 2.11 m2 Blood Pressure: 142 /80 mmHg Diagnosis/ICD: R06.02-Shortness of breath Indication: Right CHF, COPD, Diabetes, HTN, Edema, Forme Smoker, JEREMY, CKD-Stage IV, Morbid Obesity-s/p Gastric Bypass Procedure/CPT: Echo Complete w Full Doppler-[id number] Study Detail: The following Echo studies were [...] mmHg PIEDV: 1.65 m/s PADP: 15.9 mmHg [id number] Luis Castanon MD Electronically signed on 02/08/2020 at 4:38:48 PM Final Authorizing ProviderResult TypeResult StatusSyngo ConversionCV ECHO PROCEDURES Final ResultPerforming OrganizationAddressCity/State/ZIP CodePhone Number [facility] [address] from Last 3 Months or Most Recently Relevant to Health Maintenance Insurance * Guarantor: Alberto Graham TypeRelation to PatientDate of BirthPhone Billing AddressPersonal/WzwdqsKwjs[address] [place] [address] Care Teams Team MemberRelationshipSpecialtyStart DateEnd Date Conrad Sosa DO [address] [place] [address] [facility] - Fndpmih43/8/22
--- OUTSIDE RECORDS SUMMARY | 2025-09-19 20:18 | XMS_ITS | Clinical Summary ---
Author Organization [facility] Address [address] [place] [address] [place] [address] Care Team Providers Care Document Advisor Name Role Phone Conrad Sosa DO Primary Care Provider [phone] Active Problems ProblemNoted DateDiagnosed DateObesity: body mass index of 35.0-39.9004/28/2025 Social History Tobacco UseTypesPacks/DayYears UsedDateSmoking Tobacco: Never Assessed CommentsUnknownSex and Gender InformationValueDate RecordedSex Assigned at Not on fileLegal TnvEhyzmz57/16/2025 8:40 PM EDTGender IdentityNot on fileSexual OrientationNot on file Last Filed Vital Signs Vital SignReadingTime TakenCommentsBlood Pressure--Pulse--Temperature-- Respiratory Rate--Oxygen Saturation--Inhaled Oxygen Concentration--Yyfxce54.8 kg (211 lb 3.2 oz)04/28/2025 12:31 PM ICHEydhcp838 cm (5' 3 )04/28/2025 12:31 PM EDTBody Mass Index37.41004/28/2025 12:31 PM EDT Plan of Treatment Health MaintenanceDue DateLast DoneCommentsDEXA SCAN DLQMNQVBVU1955 HEPATITIS C VIRUS DUMOGXPPH61/08/2617OTAABAL1955TDAP (ADULT)1974 CERVICAL CANCER SCREENING QQSPRVQBYV28/08/1976LIPID SVISMTMZQ96/08/1995MAMMOGRAM SCREENING QCNXJREDWV03/08/1995COLORECTAL CANCER SCREENING OATHONNNND85/08/2000 ZOSTER (SHINGLES) VACCINE (1 of 2)2005COVID-19 VACCINE (2024- season)5001/24/2021, 01/02/2021INFLUENZA VACCINE (#1)2025 08/10/2024, 08/26/2023, 08/07/2022, Additional history existsRSV VACCINE (1 - 1- dose 75+ series)2030PNEUMOCOCCAL VACCINE DUWONAJvfxefpou17/01/2020, 08/02/2019, 07/19/2019, Additional history existsHEP B VACCINEAged [...] Conrad Sosa DO [address] [place] [address] [facility]04/28/25
--- OUTSIDE RECORDS SUMMARY | 2025-09-19 20:18 | XMS_ITS | Encounter Summary ---
Author Organization [facility] Address [address] [place] [address] Phone Care Team Providers Care Hospitality Job Titles Name Role Phone SosaMaxx escobedoamador Oseguera Primary Care Provider Encounter Details DateTypeDepartmentCare Team (Latest Contact Info)Lyyliidifqk04/01/2025Telephone [facility] [address] [place] [address] [address] [place] [address] Luis Castanon MD [address] [facility] 2, [facility] [address] [place] [address] Social History Tobacco UseTypesPacks/DayYears UsedDateSmoking Tobacco: NeverSmokeless Tobacco: NeverAlcohol UseStandard Drinks/WeekCommentsYes0 (1 standard drink = 0.6 oz pure alcohol)rareCommentsUnknownSex and Gender InformationValueDate Recorded Sex Assigned at BirthNot on fileLegal LwtSfvbgj08/25/2022 1:39 PM ESTGender IdentityNot on fileSexual OrientationNot on filedocumented as of this encounter Miscellaneous Notes * Telephone Encounter - Jessica Waddell - 09/18/2025 7:45 AM EST Heart Cath [id number] DX: R07.2/R06.09 at [facility] is approved per the [employer] Portal and is valid from 09/15/25-03/14/26-Auth#-[id number]. documented in this encounter Plan of Treatment DateTypeDepartmentCare Team (Latest Contact Info)Ymxjiidgizl83/14/2026 2:20 PM ESTOffice Visit [facility] [facility] [place] [address] [place] [address] Luis Castanon MD [address] [facility] 2, [place] [address] [place] [address] documented as of this encounter Visit Diagnoses Not on filedocumented in this encounter Additional Health Concerns AssessmentNoted TimeA fall risk assessment has been completed for the patient 09/13/2025 1:24 PM ESTdocumented as of this encounter Care Teams Team MemberRelationshipSpecialtyStart DateEnd Date Conrad Sosa DO [address] [place] [address] PCP - Wzicops72/8/22documented as of this encounter
--- OUTSIDE RECORDS SUMMARY | 2025-09-19 20:18 | XMS_ITS | Encounter Summary ---
Author Organization [facility] Address [address] [place] [address] Phone Care Team Providers Care Oil Field Technician Name Role Phone Ian Conrad Oseguera Primary Care Provider Encounter Details DateTypeDepartmentCare Team (Latest Contact Info)Pvtwtazulzy18/28/2025Telephone [facility] Primary Care [address] [facility] [address] [place] [phone] Luis Castanon MD [address] [facility] [address] [place], [place] [id number] Social History Tobacco UseTypesPacks/DayYears UsedDateSmoking Tobacco: NeverSmokeless Tobacco: NeverAlcohol UseStandard Drinks/WeekCommentsYes0 (1 standard drink = 0.6 oz pure alcohol)rareCommentsUnknownSex and Gender InformationValueDate Recorded Sex Assigned at BirthNot on fileLegal UeqCunbhd16/25/2022 1:39 PM ESTGender IdentityNot on fileSexual OrientationNot on filedocumented as of this encounter Miscellaneous Notes * Telephone Encounter - Zuleima Mejía - 09/15/2025 10:31 AM EST Heart Cath/75622 DX-R07.2/R06.09 for [facility] is pending review Case# [id number] per [employer] documented in this encounter Plan of Treatment DateTypeDepartmentCare Team (Latest Contact Info)Svhzwshshug43/14/2026 2:20 PM ESTOffice Visit [facility] [address] [facility] [address] [place] [address] Luis Castanon MD [address] [facility] [address] [place] [address] documented as of this encounter Visit Diagnoses Not on filedocumented in this encounter Additional Health Concerns AssessmentNoted TimeA fall risk assessment has been completed for the patient 09/13/2025 1:24 PM ESTdocumented as of this encounter Care Teams Team MemberRelationshipSpecialtyStart DateEnd Date Conrad Sosa DO [address] [place] [address] PCP - Bmtmnnv29/8/22documented as of this encounter
--- OUTSIDE RECORDS SUMMARY | 2025-09-19 20:18 | XMS_ITS | Encounter Summary ---
Author Organization [facility] Address [address] [place] [address] Phone Care Team Providers Care Drug Abuse Technician Name Role Phone Conrad Sosa Primary Care Provider Encounter Details DateTypeDepartmentCare Team (Latest Contact Info)Nsuvwxkqbsm14/11/2025Orders Only [facility] [address] [place] [address] Scanning, Generic Provider Social History Tobacco UseTypesPacks/DayYears UsedDateSmoking Tobacco: FormerCigarettes Smokeless Tobacco: NeverAlcohol UseStandard Drinks/WeekCommentsYes0 (1 standard drink = 0.6 oz pure alcohol)rareCommentsUnknownSex and Gender InformationValueDate RecordedSex Assigned at BirthNot on fileLegal SexFemale 09/12/2022 1:39 PM ESTGender IdentityNot on fileSexual OrientationNot on file documented as of this encounter Functional Status * BPAnswerDate of EikgibwmbxAdikdu444/6409/13/2025 1:39 PM Nayeli Yu LPN * PulseAnswerDate of LlofiusjqoWagupe3656/26/2025 1:39 PM Nayeli Yu LPN documented as of this encounter Plan of Treatment DateTypeDepartmentCare Team (Latest Contact Info)Sfnxlbvgtcf89/14/2026 2:20 PM ESTOffice Visit [address] [address] Luis Castanon MD [address] [facility] [place] [address] documented as of this encounter Procedures Procedure NamePriorityDate/TimeAssociated DiagnosisCommentsNUCLEAR STRESS TEST - ONBASE SCAN08/29/2025 documented in this encounter Results * Nuclear Stress Test - Onbase Scan (08/29/2025) Narrative 08/29/2025 Ordered by an unspecified provider. Authorizing ProviderResult TypeResult StatusGeneric Provider ScanningCV STRESS PROCEDURESFinal Result documented in this encounter Visit Diagnoses Not on filedocumented in this encounter Care Teams Team MemberRelationshipSpecialtyStart DateEnd Date Conrad Sosa DO [address] [place] [phone] PCP - Ihthgrq52/8/22documented as of this encounter
--- OUTSIDE RECORDS SUMMARY | 2025-09-19 20:18 | XMS_ITS | Encounter Summary ---
Author Organization [facility] Address [address] [place] [address] Phone Care Team Providers Care Crushing Foreman Name Role Phone Conrad Sosa Primary Care Provider Encounter Details DateTypeDepartmentCare Team (Latest Contact Info)Euposmqaqbu09/21/2025Telephone [facility] [address] [address] Generic Provider, No Assigned P[place], [place] [address] Social History Tobacco UseTypesPacks/DayYears UsedDateSmoking Tobacco: FormerCigarettes Smokeless Tobacco: NeverAlcohol UseStandard Drinks/WeekCommentsYes0 (1 standard drink = 0.6 oz pure alcohol)rareCommentsUnknownSex and Gender InformationValueDate RecordedSex Assigned at BirthNot on fileLegal SexFemale 09/12/2022 1:39 PM ESTGender IdentityNot on fileSexual OrientationNot on file documented as of this encounter Miscellaneous Notes * Telephone Encounter - Susie Shea - 09/08/2025 12:22 PM EST Patient left voicemail in regards to scheduling with Dr. Luis Castanon MD. Patient states shehad [facility] and her PCP recommended seeing Dr. Luis Castanon MD. Patient's last visit was 09/25/2022, she will be established until that date. Called patient back and got voicemail. documented in this encounter Plan of Treatment DateTypeDepartmentCare Team (Latest Contact Info)Immrqlpzbci83/14/2026 2:20 PM ESTOffice Visit [facility] [address] [facility] [address] [place] [address] Luis Castanon MD [address] [facility] [address] [place] [address] documented as of this encounter Visit Diagnoses Not on filedocumented in this encounter Care Teams Team MemberRelationshipSpecialtyStart DateEnd Date Conrad Sosa DO [address] [place] [address] PCP - Xkcmlsr04/8/22documented as of this encounter
--- OUTSIDE RECORDS SUMMARY | 2025-09-19 20:18 | XMS_ITS | Encounter Summary ---
Author Organization [facility] Address [address] 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 Role Phone Conrad Sosa Primary Care Provider Encounter Details DateTypeDepartmentCare Team (Latest Contact Info)Fnbazzdjzqm93/26/2025Travel Social History Tobacco UseTypesPacks/DayYears UsedDateSmoking Tobacco: NeverSmokeless Tobacco: NeverAlcohol UseStandard Drinks/WeekCommentsYes0 (1 standard drink = 0.6 oz pure alcohol)rareCommentsUnknownSex and Gender InformationValueDate Recorded Sex Assigned at BirthNot on fileLegal TgcZugxun55/25/2022 1:39 PM ESTGender IdentityNot on fileSexual OrientationNot on filedocumented as of this encounter Functional Status * BPAnswerDate of SxnvydmozkRvekkc486/6411 1:39 PM Nayeli Yu LPN * PulseAnswerDate of LlzjztrtiyLiefke6531/26/2025 1:39 PM Nayeli Yu LPN documented as of this encounter Plan of Treatment DateTypeDepartmentCare Team (Latest Contact Info)Wicqyduwgky98/14/2026 2:20 PM ESTOffice Visit [facility] [address] [facility] [address] [place] [address] Luis Castanon MD [address] [facility] [address] [place] [address] documented as of this encounter Visit Diagnoses Not on filedocumented in this encounter Additional Health Concerns AssessmentNoted TimeA fall risk assessment has been completed for the patient 09/13/2025 1:24 PM ESTdocumented as of this encounter Care Teams Team MemberRelationshipSpecialtyStart DateEnd Date Conrad Sosa DO [address] [place] [phone] PCP - Tasebvg43/8/22documented as of this encounter
--- OUTSIDE RECORDS SUMMARY | 2025-09-19 20:18 | XMS_ITS | Clinical Summary ---
Author Organization [facility] Address [address] [facility], [address] [place] [address] Care Team Providers Care Stogie Packer Name Role Phone Unavailable Primary Care Provider Unavailabl e Allergies Active AllergyReactionsCriticalityNoted DateCommentsAspirinHives,Shortness Of Breath,AlvdKkzb35/17/9585Qclzcyxbak38/17/2025enzalkonium ChlorideRashLow 01/02/2025 Dial soap WxiotlcoipRybaEij89/17/7627Gnrlurgci00/17/2025 Can not take d/t kidney disease LatexHives,Itching,VskaGet9101/02/20253302Bxajhfohza02/17/6009CmnlksLkjivie38/17/2025 NylonItching,HtayIrx9801/02/2025PenicillinsHives,Shortness Of Breath,Itching,Rash High01/02/20258814Hghpuvptpys63/17/2025Sulfa AntibioticsHives,Shortness Of Breath, Itching,UqbuDwml01/17/0860Vkhrgiwb10/17/2025Wound Dressing Tbrkcoic91/17/2025 bandaids Medications MedicationSigDispense QuantityRefillsLast FilledStart DateEnd DateStatus [...] tablet in the evening.Active Cholecalciferol 1.25 MG (48287 UT) TABS Take 1 capsule by mouth [...] nightlyActive Active Problems ProblemNoted DateDiagnosed DateHypotension after wcctnedtf79/20/2025COPD (chronic obstructive pulmonary disease)Diabetes mellitusHypertensionStage 4 chronic [...] were you homeless or living in a prison (including now)?No01/05/2025 Food InsecurityAnswerDate RecordedWithin the past 12 months, you worried that your food would run out before you got the money to buymore.Within the past 12 months, the food you bought just didn't last and you didn't have money to get more.Interpersonal Safety Domain Source: IP Abuse ScreeningAnswerDate RecordedPhysical bkizyFynvww07/20/2025Verbal abuseDenies 01/05/2025Emotional yjzsoJxvmbr59/20/2025Financial dannrXyzfts52/20/2025Sexual uvhegKanmoy21/20/2025CommentsUnknownSex and Gender InformationValueDate RecordedSex Assigned at BirthNot on fileLegal TnnTfoztj83/21/2015 7:56 PM EDT Gender IdentityNot on fileSexual OrientationNot on file Last Filed Vital Signs Vital SignReadingTime TakenCommentsBlood Jcohbrzy137/57001/06/2025 7:28 AM EDT Hzmav4043/21/2025 7:28 AM TBAMuuyvhepnlb76.5 ??C (97.7 ??F)01/06/2025 7:28 AM EDTRespiratory Dpnx787601/06/2025 7:28 AM EDTOxygen Czxhbfxdkk62%01/06/2025 7:28 AM EDTInhaled Oxygen Concentration--Yacgpq28.1 kg (214 lb)01/05/2025 3:07 PM EDT Leviwv005 cm (5' 2.99 )01/05/2025 3:07 PM EDTBody Mass Index37.9201/05/2025 3:07 PM EDT Plan of Treatment Health MaintenanceDue DateLast JsoeIwiobvxrU0F test (Diabetic or Prediabetic) 1965Diabetic foot exam07/26/19656562Jmbrlj40/08/1965Depression Screen 1967Diabetic Alb to Cr ratio (uACR) test1973Diabetic retinal exam 1973Hepatitis C ixdfxy2507/26/1973DTaP/Tdap/Td vaccine (1 - Tdap)1974 Breast cancer lrmdsq2107/26/19957710Yudxhxpvsnh91/08/2000Colorectal Cancer Screen 2000FIT/FOBT: Average risk2000Fecal-DNA (Cologuard): Average risk 2000Sigmoidoscopy/CT srjzflymufcq14/08/2000Shingles vaccine (1 of 2) 2005DEXA (modify frequency per FRAX score)2010Respiratory Syncytial Virus (RSV) or age 60 yrs+ (1 - Risk 60-74 years 1-dose series) 2015nnual Wellness Visit (Medicare Advantage)10/19/2024Flu vaccine (#1) /, 08/26/2023, 08/07/2022, Additional history existsCOVID-19 Vaccine (2024- season)/05/2021, 01/02/2021GFR test (Diabetes, CKD 3-4, OR last GFR 15-59)Pneumococcal 50+ years Vaccine Teziufxrc44/01/2020, 08/02/2019, 07/19/2019, Additional history existsHepatitis A vaccineAged [...] PM EDT) ComponentValueRef RangeTest MethodAnalysis TimePerformed AtPathologist UhocdrnlyLdsmpi918328 - 145 mmol/L01/05/2025 3:30 PM [facility] LABPotassium4.13.7 - 5.3 mmol/L01/05/2025 3:30 PM [facility] THYSgcknqlx659(H)98 - 107 mmol/L01/05/2025 3:30 PM [facility] EKSDS69875 - 31 mmol/L01/05/2025 3:30 PM [facility] LABAnion Gap99 - 16 mmol/L01/05/2025 3:30 PM [facility] KQUCowwuca672(H)74 - 99 mg/dL01/05/2025 3:30 PM EDT [facility] AHPXGC008 - 23 mg/dL01/05/2025 3:30 PM [facility] LABCreatinine1.0(H)0.50 - 0.90 mg/dL01/05/2025 3:30 PM [facility] LABEst, Glom Filt Rate60(L)>60 mL/min/1.73m2 01/05/2025 3:30 PM [facility] LABComment: ? These results are not intended [...] therapy that affects renal tubular secretion. BUN/Creatinine Qyrfi328 - 3:30 PM [facility] LABCalcium8.78.6 - 10.4 mg/dL01/05/2025 3:30 PM [facility] LABSpecimen (Source)Anatomical Location / LateralityCollection Method / Volume Collection TimeReceived TimeBloodBLOOD SPECIMEN / Egleeqe3301/05/2025 3:30 PM EDT 01/05/2025 3:33 PM EDT Narrative Authorizing ProviderResult TypeResult StatusShirmilo Prince PEDIATRIC CNS - CASHIER AND WAITER/WAITRESS CHEMISTRY ORDERABLESFinal ResultPerforming OrganizationAddressCity/State/ZIP CodePhone Number [facility] [address] [place] [address], [facility] [phone] from Last 3 Months or Most Recently Relevant to Health Maintenance Insurance Advance Directives * Full Code (Latest Code Status on File) Date ActivatedDate InactivatedComments01/05/2025 6:23 AM01/06/2025 2:44 PM
--- OUTSIDE RECORDS SUMMARY | 2025-09-19 20:20 | XMS_ITS | CCD ---
Author Organization [facility] CliniSyal Care Team Providers Care Senior User Experience Architect Name Role Phone ITALO ANN Unavailable Unavailab [...] Unavailable Unavailab le Schwbossmanr, Elda E Unavailable Unavailable Unavailable Yuan Romeo Unavailable Reynaldo Trejo Jr. Unavailable Schwerer, Elda Unavailable Schwerer, Elda Unavailable Schwerer, Elda Unavailable Laquita Hayden Unavailable Marva Hunt Unavailable Reynaldo Trejo Unavailable Wes Jason Unavailable Mabel Henderson Unavailable Schwerer, DO Elda E Primary Care Provider [phone] DIANE Epps Attending Provider DIANE Epps Other Provider Ian DO Peter Harrell Primary Care Provider [phone] MD Laquita Hayden Attending Provider SosaDO Peter Attending Provider Ricardoshemar, [facility] Deidra Holley Emergency Provider Peter Sosa Unavailable Irvin, NIURKA Serna Referring Unavailable Traboulssi, Dr. Smith Attending Unavaila ble Sosa, Dr. Peter Willis Primary Care Unava ilable Traboulssi, Dr. Smith Attending Unavaila ble Traboulssi, Dr. Smith Referring Unavaila ble Sosa, Dr. Peter Willis Primary Care Unava ilable Irvin, TAG MACHINE OPERATOR Daphne Attending Unavailable Angelo, TAG MACHINE OPERATOR Daphne Referring Unavailable Sosa Peter GAMING Primary [...] Sosa, DO Peter Harrell Primary Care Provider [phone] MD Laquita Hayden Attending Provider Anusha Barber [...] Attending Unavailable Sosa Peter GAMING Attending Provider [phone] Peter Sosa Attending Unavailable SosaPeter escobedo Admitting Unavailable Sosa Peter GAMING Primary Care Provider [phone] VLAD WADE Referring Unavailable MARYCRUZVLAD Attending Unavailable SOSAPETER Primary Care Unavailable VLAD JOEL Attending Unavailable MARYCRUZVLAD Referring Unavailable SOSA, PETER Primary Care Unavailable MARYCRUZVLAD Attending Unavailable MARYCRUZVLAD Referring Unavailable SOSA, PETER Primary Care Unavailable MARYCRUZLVAD Attending Unavailable MARYCRUZVLAD Referring Unavailable SOSA, PETER Primary Care Unavailable Shannon BRYANT, Mabel Attending Provider [phone] SosaPeter escobedo DO Primary Care Provider [phone] Glen Bejarano Talrosa Admitting Unavaila ble Chaitanya Bejaranohammad Talal Attending Unavaila ble Sarminmanuel Carroll Talal Referring Unavaila ble SarminiChaitanyaCarroll Talal Attending Unavaila ble Aric BRYANT, Noms Provider Primary Care Provi rosalio Allergies Allergy ClassificationReported Allergen(s)Allergy TypeDate of OnsetReaction(s) Facility (20 sources)Latex; Translations: [LATEX]Propensity to adverse reactions to drug (disorder)59-56-8551Zdmbo, Hives, Itching, [facility] ([facility] source)penicillin; Translations: [PENICILLIN]Drug Rpedqau03-16-3069DBY [facility]ository (18 sources)Sulfonamides (Antibiotic); Translations: [SULFA (SULFONAMIDE ANTIBIOTICS)]Propensity to adverse reactions to drug (disorder)44-34-0284Mzlrd, Shortness of breathMartin [facility] Hospital Repository (1 source)Adhesive agent; Translations: [adhesive]Propensity to adverse reactions (disorder)43-46-0820BOCDbm [facility] (16 sources)Penicillins; Translations: [Penicillins]Drug allergy (disorder) 91-85-7604IJM, Hives, Hives, Rash, SwellingThe [facility] (1 source)RED RX SINUS TABLETDrug allergy (disorder)92-66-6424LOZOxo [facility] Repository (20 sources)Aspirin; Translations: [Aspirin TABS]Drug Ggvgvwc30-24-2961wrohq, Shortness of breathNoboone hospital center Motally Other (2 sources)Penicillins; Translations: [Penicillins]Allergy to drug (finding) Hives, Itching, Rash, OtherMP-St. Cloud HospitalScott 250 DO Work Phone: (4 sources)Sulfonamides (Antibiotic); Translations: [Sulfa Drugs]Allergy to drug (finding)Hives, Rash, ItchingCarolinas Continuecare Hospital At Universityer [facility] Rep[facility] (2 sources)Latex Exam Gloves MISC; Translations: [Latex Exam Gloves MISC]Allergy to drug (finding)Hives, Itching, RashTyler HospitalCarlsbad 250 DO Work Phone: (20 sources)Furosemide; Translations: [Lasix]Drug Arntlit48-50-2640YqoiisiWvm [facility] Repository (20 sources)nabumetoneDrug Xhmhwhg75-76-0349Ydttlfx, Unknown ReactionSt. [facility] (20 sources)Penicillin GDrug Gurmdkn50-77-2252hydhvElacvbscbSt. [facility] (20 sources)semaglutideDrug Xbsfcko41-96-1337dcfciiftp, light headed, nausea [facility] (20 sources)SulfacetamideDrug AllergyhivesNoboone hospital center Motally Other (20 sources)ADHESIVES AND TAPESPropensity to adverse keefjtfiy59-66-5946Kmpsyng, [facility] (6 sources)Adhesive Tape; Translations: [Adhesive tape]Allergy to substance 77-50-6933PunbSlxzhzcjwFairfield Medical Center (20 sources)Aspirin; Translations: [Aspirin]Drug Kyxdvcz60-47-4308Pjrwm, Shortness Of Breath, [facility] (15 sources)IbuprofenDrug Sarezur43-00-9987VkowsLgiimlv Health (2 sources)nickelDrug Ylnqiqu84-37-3170EdruroyCsfygvj Health (3 sources)PenicillinsDrug Ydesjsx66-60-1478Flnmc, Shortness of breath, Itching, [facility] (14 sources)Sulfamethoxazole / TrimethoprimDrug Offwxpp54-15-6130GbbicmjDuzzgrb Health (15 sources)traMADolDrug Jbcauay47-48-8943JwildkaQwmeokn Health (2 sources)Adhesive Tape-SiliconesDrug Lwweuim25-09-5896DulcmLcocdei Health (2 sources)Contact Metal AgentDrug Qxgiynu60-35-4178DgdqcjrXdppopp Health (6 sources)bandaidsPropensity to adverse reactionsSt. Louis Behavioral Medicine InstituteBroadchoice Other (20 sources)DULoxetineDrug Qsabxdy88-44-6140Kwpmhgm, Unknown ReactionSt. Mary'S [facility] (14 sources)NylonPropensity to adverse mukgdbbix80-10-2102OkmwlvkSharon Regional Medical Center (13 sources)SoapPropensity to adverse gcqydivnz39-99-2124CvymRgjmzqb Health (1 source)nabumetoneDrug Vxvpovo11-96-4435NakSelect [facility] (2 sources)Sulfonamides (Antibiotic)Drug allergy (disorder)29-01-7550ZanSelect Medical Specialty Hospital [facility] Repository (1 source)Misc-Other; Translations: [Misc-Other]Propensity to adverse reactions (disorder)80-21-2325Nzl [facility] Repository (8 sources)FurosemideDrug Bmkigoa90-10-6307MpztKbdwlozziFort Hamilton Hospital (2 sources)Adhesive Tape; Translations: [Tape]Propensity to adverse reactions (disorder)[facility] Repository (1 source)BenzalkoniumDrug Yiasdif51-82-5974IipeEmuDickenson Community Hospital (13 sources)nickel sulfateDrug Dyptait59-09-7532WogmuasSck [facility] (13 sources)Sulfonamides (Antibiotic)Propensity to adverse reactions to drug 22-66-3435Gfjxr, Shortness Of Breath, Itching, Rash, UnknownBon [facility] (13 sources)Wound Dressing AdhesivePropensity to adverse reactions to drug 25-58-0917Qcy [facility] (12 sources)FurosemideDrug Azqbggk83-02-2184WfvpMFMS Healthcare (12 sources)nabumetoneDrug Dkxwhmg92-76-4318JDUO Healthcare (12 sources)PenicillinsDrug Veaxwnb94-75-1570Xwwny, Itching, Rash, Shortness of breathMercy Hospital Joplin (12 sources)SemaglutideAllergy to -79-8537HFWM Healthcare (11 sources)BenzalkoniumDrug Gzdetmq07-77-7723IkukSANI Healthcare Medications Current Medications MedicationDrug Class(es)DatesSig (Normalized)Sig (Original)0.5 ML tirzepatide 10 MG/ML Auto-Injector [Mounjaro] (3 sources)Start: 81-41-3356mmjlvf 5 mg by subcutaneous injection every week Mounjaro 5 MG/0.5ML inject 5mg weekly Subcutaneous weekly Jul, Active Start: 20-32-4838agifon 5 mg by subcutaneous injection every weekMounjaro 5 MG/0.5ML inject 5mg weekly Subcutaneous weekly for 28 days Jul, Active 0.5 ML tirzepatide 15 MG/ML Auto-Injector [Mounjaro] (5 sources)Start: 89-16-0281Djmzpjck 7.5 MG/0.5ML 1 injector Subcutaneous weekly for 28 days Jul, Active0.5 ML tirzepatide 5 MG/ML Auto-Injector [Mounjaro] (8 sources)Start: 84-47-3783Ntskxpes 2.5 MG/0.5ML 1 injector Subcutaneous weekly for 28 days Jul, ActiveStart: 79-83-1086Fgzyifcx 2.5 MG/0.5ML as directed Subcutaneous Jun, Activeacetaminophen [...] oral tablet (20 sources)Opioid AgonistStart: 12-29-2023 End: 34-06-0327rbpu 1 tablet by mouth every six hours as neededOxycodone- Acetaminophen 5-325 mg tablet Active 1 TAB PO Every 6 hours as needed July 12, 2025 1:59pm FreeTextSi tablet as needed Orally every 6 hrs; Note: Source Status: Taking; Provider: Agueda Valera ( ) Complies with drug therapyStart: 10-02-2022 End: 61-46-8410qouBCUMZY-acetaminophen (PERCOCET) 5-325 mg per tablet 1 tablet Start: 22-88-4527Lorbi: 06-23-2021 End: 81-54-5582jmot 1 tablet by mouth every six hours as needed for pain Oxycodone-Acetaminophen (Percocet) 5-325 mg tablet Discontinued 1 TAB PO Q6H as needed for pain 10 3 June 23, 2021 December 18, 2021 3:42pmStart: 05-06-2019 End: 02-27-7543jxfm 1 tablet by mouth once daily as needed for painOxycodone- Acetaminophen 5-325 mg Tablet Discontinued 1 - 2 TAB PO Daily as needed for Pain May 06, 2019 12:00am December 18, 2021 3:42pm End: 43-13-7756bzoEMVBHB-acetaminophen (PERCOCET) 5-325 mg per tablet Take 1-2 tablets by mouth 2 (two) times a day if needed (pain). Max Daily Amount: 4 tablets 0 10/06/2022 Discontinued (Stop Taking at Discharge)albuterol 0.83 mg/ml inhalation solution (20 sources)beta2-Adrenergic AgonistStart: 68-50-8952krky 2 puff(s) by inhalation every six hours as needed for wheezingalbuterol sulfate HFA (VENTOLIN HFA) 108 (90 Base) MCG/ACT inhaler Inhale 2 puffs into the lungs every 6 hours as needed for Wheezing 18 g 3 01/05/2025 ActiveStart: 65-39-1425Mlwlm: 95-89-8595bkwofnood (2.5 MG/3ML) 0.083% nebulizer solution Take 2.5 mg by nebulization every 4 (four) hours if needed 12/29/2023 ActiveStart: 12-29-2023 End: 75-83-1275qspa 3 mL by inhalation four times daily as neededAlbuterol Sulfate 2.5 mg /3 mL (0.083 %) solution for nebulization Active 2.5 MG INHALATION Four times daily as needed July 12, 2025 1:55pm FreeTextSiml Inhalation 4 times a day; Note: Source Status: Taking; Provider: Agueda Valera ( ) Complies with drug therapyStart: 03-19-2023 End: 22-77-6940ojma 2.5 mg by inhalation every six hours as needed2.5 mg, nebulization, Every 6 hours PRN, wheezing, Starting on Pina 03/19/23 at 1631Start: 10-03-2022 End: 42-28-7935zlidznmad HFA (6.7 g/200 puff common canister) 90 mcg/actuation inhaler 2 puffStart: 10-02-2022 End: 93-53-8141anew 2.5 mg by inhalation every six hours as needed2.5 mg, nebulization, Every 6 hours PRN, wheezing, Starting on Pina 10/02/22 at 1416 Start: 03-42-5563dbty 1 puff(s) by inhalation every four to [...] and 2 puffs before bedtime. Active End: 86-37-7008hlmf 1 puff(s) by inhalation every four hoursalbuterol HFA (Ventolin HFA) 90 mcg/act inhaler Inhale 1 puff every 4 (four) hours if needed 01/18/2025 Discontinued (Therapy completed) End: 40-43-0186xptghwiod (PROVENTIL) 2.5 MG/0.5ML NEBU nebulizer solution Take [...] acid 70 mg oral tablet (20 sources)BisphosphonateStart: 85-65-8550agyf 1 tablet by mouth every week Alendronate 70 mg Tablet Active 70 MG PO every week May 06, 2019 12:00am Complies with drug therapyalendronate (Fosamax) 70 MG tablet Take 70 mg by mouth every 7 (seven) days Activeallopurinol 100 mg oral tablet (20 sources)Xanthine Oxidase InhibitorStart: 99-12-2815nxme 1 tablet by mouth once dailyAllopurinol 100 mg tablet Active 100 MG PO Daily July 12, 2025 2:39pm Complies with drug therapyStart: 44-63-7860bdrd 200 mg by mouth once uxwwa582 mg, Oral, DAILY, First dose on Pina 01/05/25 at 1345, Until Discontinued Start: 05-06-2019 End: 15-35-5248kfmh 2 tablets by mouth once dailyAllopurinol 100 mg Tablet Discontinued 200 MG PO Daily May 06, 2019 12:00am July 1252:42pm Start: 05-06-2019 End: 02-11-1284bvos 200 mg by mouth once dailyAllopurinol Active 200 MG PO Daily May 06, 2019 12:00amazithromycin 250 mg oral tablet (8 sources)Macrolide AntimicrobialStart: 84-51-6877Zhshm: 57-12-5643xzpmmouj 10 mg oral tablet (16 sources)gamma-Aminobutyric Acid-ergic AgonistStart: 81-18-2406poht 1 tablet by mouth twice dailyBaclofen 10 mg tablet Active 10 MG PO Twice daily January 25, 2022 12:00am Complies with drug therapybenzonatate 100 mg oral capsule (2 sources)Non-narcotic AntitussiveStart: 91-74-0031fgdh 1 capsule by mouth three times daily as needed for coughBenzonatate 100 mg capsule Active 100 MG PO Three times daily as needed for cough October 27, 2024 1:00am Complies with drug therapybisacodyl 5 mg delayed release oral tablet (3 sources)Stimulant LaxativeStart: 01-07-3663qpdd 1 tablet by mouth once daily Bisacodyl (Laxative (Bisacodyl)) 5 mg tablet,delayed release (DR/EC) Active 5 MG PO Daily 2024 12:00am Complies with drug therapyStart: 03-19-2023 End: 70-71-2822qmmtxwazT (DULCOLAX) suppository 10 mgStart: 10-02-2022 End: 82-09-7153irpevhrzJ (DULCOLAX) suppository 10 mgbumetanide 1 mg oral tablet (20 sources)Loop DiureticStart: 33-99-4166spaq 1 tablet by mouth twice daily Bumetanide 1 mg tablet Active 1 MG PO Twice daily July 12, 2025 12:00am Complies with drug therapyStart: 29-03-5469Opsif: 09-30-2022 End: 28-97-8395mqrp 1 mg by mouth twice daily1 mg, oral, 2 times daily, First dose on Thu03/20/23 at 0900 Regarding Diuretics - Hold if SBP < 110 ; Plan to start POD#1 Start: 38-70-1770oytx 2 tablets by mouth every twelve hours Bumetanide 0.5 MG 2 tablet Orally TWICE A DAY for 90 days noon Mar, ActiveStart: 05-06-2019 End: 80-33-0487qzrx 1 tablet by mouth twice dailyBumetanide 0.5 mg Tablet Discontinued 0.5 MG PO Twice daily May 06, 2019 12:00am December 29, 2023 10:15amcholecalciferol 0.025 mg oral capsule (20 sources)Vitamin DStart: 12-29-2023 End: 46-23-4939jjij 1 capsule by mouth once dailycholecalciferol (Vitamin D-3) 25 MCG (1000 UT) capsule Take 25 mcg by mouth Daily 12/29/2023 ActiveStart: 05-06-2019 End: 94-12-4629vwvi 1 capsule by mouth once dailyCholecalciferol (Vitamin D3) (Vitamin D3) 2,000 unit Capsule Discontinued 2000 UNIT PO Daily May 06, 2019 12:00am April 16, 2022 1:50pmtake 1 capsule by mouth every weekCholecalciferol 1.25 MG (43853 UT) TABS Take 1 capsule by mouth once a week Mondays Suspended Vitamin D 1000 UNIT CAPS TAKE 1 CAPSULE Daily Quantity: 0 Refills: 0 Ordered: 18-Dec-2021 DO Activeciprofloxacin 500 mg oral tablet (11 sources)Quinolone Antimicrobial End: 03-29-6773dhnz 1 tablet by mouth in the morningciprofloxacin (Cipro) 500 MG tablet Take 500 mg by mouth in the morning and 500 mg before bedtime. Active clindamycin 300 mg oral capsule (1 source)Lincosamide AntibacterialStart: 10-04-2022 End: 50-77-4620xevl 1 capsule by mouth three times dailyclindamycin (CLEOCIN) 300 mg capsule Take 1 capsule (300 mg total) by mouth 3 (three) times a day for 10 days. 30 each 0 10/04/2022 10/14/2022 Activedocusate sodium 100 mg oral capsule (15 sources)Start: 99-61-5807Omlpb: 03-19-2023 End: 29-58-2077azaataag sodium (COLACE) capsule 100 mgdoxycycline hyclate 100 mg oral capsule (15 sources)Tetracycline-class DrugStart: 56-08-0105cgqheruiicp (Vibramycin) 100 MG capsule 03/16/2025 ActiveStart: 97-58-1284vxcf 1 capsule by mouth every twelve hoursDoxycycline Hyclate 100 MG 1 capsule Orally Twice a day for 10 day(s) February, ActiveStart: 02-26-2022 End: 26-52-8095tgjx 1 tablet by mouth twice dailyDoxycycline Hyclate 100 mg tablet Discontinued 100 MG PO Twice daily 07 08February 26, 2022 12:00am April 16, 2022 1:50pmergocalciferol 1.25 mg oral capsule (1 source)Provitamin D2 CompoundStart: 17-56-1851Iunlvofsiiwuuf (Vitamin D2) 1,250 mcg (50,000 unit) capsule Active 68823 UNIT PO every week July 12, 2025 12:00am Complies with drug therapyerythromycin ethylsuccinate 400 mg oral tablet (12 sources)Macrolide, Macrolide Antimicrobial End: 88-22-0410xbuz 1 tablet by mouth in the morningerythromycin [...] change the ordered frequency. Start: 12-29-2023 End: 41-70-6245ncic 50 ug nasal route once daily as [...] mg oral tablet (20 sources)AntihistamineStart: 05-06-2019 End: 96-19-9074fzdx 1-2 tablets by mouth three times daily [...] Adhesive Sheet 5 % (Patch) (8 sources)Start: 04-06-8204Iakjcywpt & Adhesive Sheet 5 % (Patch) as directed Externally DAILY Jan, Active3 ml liraglutide 6 mg/ml pen injector (2 sources)GLP-1 Receptor AgonistStart: 45-52-0226stfgqi 0.3 mg by subcutaneous injection every weekSaxenda 18 MG/3ML 0.3 mg and may increase weekly to full dose if no side effects and if necessary. Subcutaneous once daily for 30 day(s) May, Activemagnesium oxide 500 mg oral capsule (7 sources)Start: 38-71-4606ojbu 1 capsule by mouth once daily at bedtime Magnesium Oxide 500 mg capsule Active 500 MG PO Daily at bedtime July 12, 2025 12:00am Complies with drug therapyStart: 76-67-4135ppqu 400 mg by mouth once dgibd969 mg, Oral, DAILY, First dose on Pina 01/05/25 at 1345, Until DiscontinuedStart: 03-19-2023 End: 72-33-7213zgxf 400 mg by mouth once mg, oral, Nightly, First dose on Pina 03/19/23 at 2100take 500 mg by mouth once dailyMAGNESIUM OXIDE PO Take 500 mg by mouth nightly SuspendedMagnesium Oxide 400 (241.3 Mg) MG TABS Take 1 tablet daily Quantity: 0 Refills: 0 Ordered: 25-Sep-2022 DO Activemeropenem 1000 mg injection (1 source)Penem AntibacterialStart: 03-24-2023 End: 77-68-4724vkcymxjjt (MERREM) 1 gram injection Infuse 2 g into a venous catheter every 8 (eight) hours. ECF Nursing Instructions: 1)Picc Care 2)Qmon CBC,SR,Creat,CRP, fax to Dr. Angelo [phone] 3)IV ATB for 42 days 4)[address] Dr[address] Angelo for F/C/S, N/V/D, rash, 5)F/U with Dr Angelo in 4-5 weeks 6) Call if released before completing IV therapy. 252 g 0 03/24/2023 05/05/2023 Activemounjaro 7.5 mg/0.5ml solution pen-injector (1 source)Start: 56-02-1225Padnvttu 7.5 MG/0.5ML 1 injector Subcutaneous weekly for 28 days Jul, Activeondansetron 4 mg disintegrating oral tablet (20 sources)Serotonin-3 Receptor AntagonistStart: 03-19-2023 End: 96-28-1952xxzy 4 mg intravenously every six hours as neededondansetron (PF) (ZOFRAN) injection 4 mgStart: 10-02-2022 End: 48-20-6946frbv 1 tablet by mouth every eight hours for nauseaondansetron (ZOFRAN) 4 mg tablet Take 1 tablet (4 mg total) by mouth every 8 (eight) hours if needed for nausea or vomiting for up to 7 days. 20 tablet 0 03/19/2023 03/26/2023 ActiveStart: 10-02-2022 End: 90-99-6052modo 4 mg intravenously every six hours as neededondansetron (PF) (ZOFRAN) injection 4 mgStart: 06-05-2021 End: 42-68-2584gdoq 1 tablet by mouth once daily as neededOndansetron 4 mg tablet,disintegrating Active 4 MG PO Daily as needed July 12, 2025 1:58pm Complies with drug therapyStart: 29-06-9288uvuy 1 tablet by mouth three times daily [...] 5 mg oral tablet (8 sources)Opioid AgonistStart: 47-20-7467Fnqmt: 03-20-2023 End: 66-91-0760iebFYHHLX (ROXICODONE) immediate release tablet 10 mgStart: 03-19-2023 End: 80-73-1399bazw 5 mg by mouth every four hours as needed for pain5 mg, oral, Every 4 hours PRN, Breakthrough pain, Starting on Pina 03/19/23 at 1506, Recovery [facility] OnUnit May consider scheduled oxyCODONE instead of PRNStart: 03-19-2023 End: 52-88-9653tjeMZINFX (ROXICODONE) 5 mg immediate release tablet Take 1-2 tablets (5-10 mg total) by mouth every 4 (four) hours if needed for moderate pain or severe pain for up to 7 days. Dx: Z96.6 Max Daily Amount: 60 mg 40 tablet 0 03/19/2023 03/26/2023 ActiveStart: 10-02-2022 End: 24-96-6932zerTIOGEJ (ROXICODONE) immediate release tablet 5 mgStart: 10-02-2022 End: 42-55-4766etgEPIPWG (ROXICODONE) 5 mg immediate release tablet Take [...] hours as needed for Pain. Suspended End: 86-83-4603fhrc 1 capsule by mouth once dailyoxyCODONE (OXY-IR) 5 mg immediate release capsule Take 1-2 capsules (5-10 mg total) by mouth 1 (one) time each day if needed (pain). 0 03/25/2023 Discontinued (Stop Taking at Discharge)Oxygen (1 source)Start: 04-13-3044Qverqc Active 0 .ROUTE December 29, 2023 12:00am 2 liters DME LincareOxygen 2 liters (20 sources)Oxygen 2 liters continuous prn ActiveOxygen 2 liters continuous ActiveOxygen unit (3 sources)Start: 02-35-2885Lvgkdd unit Active 0 .Route December 29, 2023 12:00am 2 liters DME LincareStart: 07-33-7230Hoamme unit Active 0 .Route December 28, 2023 11:00pm 2 liters DME Lincarepantoprazole 40 mg delayed release oral tablet (20 sources)Proton Pump InhibitorStart: 05-06-2019 End: 98-00-4362xzhm 1 tablet by mouth twice dailyPantoprazole 40 mg Tablet,Delayed Release (Dr/Ec) Active 40 MG PO Twice daily May 06, 2019 12:00am Complies with drug therapytake 1 tablet by mouth before mealtime pantoprazole (ProtoNix) 20 MG EC tablet Take 20 mg by mouth in the morning. Take before meals. Activephenazopyridine hydrochloride 95 mg oral tablet (13 sources)Start: 94-58-5493mrkx 2 tablets by mouth every eight hours Phenazopyridine HCl 95 MG 2 tablets after meals Orally Three times a day May, ActiveStart: 05-27-2022 End: 55-58-7429ggfs 1 tablet by mouth three times daily as needed for pain Phenazopyridine (Azo Urinary Pain Relief) 95 mg tablet Discontinued 95 MG PO Three times daily as needed for pain May 27, 2022 12:00am October 27, 2024 1:19pmStart: 70-53-3367fwfy 1 tablet by mouth three times daily Phenazopyridine (Azo Urinary Pain Relief) 95 mg tablet Active 95 MG PO Three times daily May 27, 2022 12:00amphentermine hydrochloride 37.5 mg oral tablet (5 sources)Sympathomimetic Amine AnorecticStart: 87-31-1673tvrr 1 tablet by mouth once daily in the morningPhentermine 37.5 mg tablet Active 37.5 MG PO Every morning July 12, 2025 12:00am Complies with drug therapy End: 73-12-9850ciou 1 capsule by mouth before mealtimephentermine 37.5 MG capsule Take 37.5 mg by mouth in the morning. Take before meals. 01/18/2025 Disc ontinued (Therapy completed)polyethylene glycol 3350 49995 mg powder for oral solution (2 sources)Osmotic LaxativeStart: 55-51-3775hbdl 8.5 g by mouth oncePolyethylene Glycol 3350 17 gram/dose powder Active 8.5 GM PO Once July 12, 2025 12:00am Complies with drug therapyStart: 03-19-2023 End: 61-38-1521aaldvqhjolec glycol (MIRALAX) packet 17 gpotassium chloride 10 meq extended release oral tablet (5 sources)Start: 51-85-6067dgmz 1 tablet by mouth every twenty-four hours Potassium Chloride ER 10 MEQ 1 tablet with food Orally Once a day for 30 day(s) Jul, ActivepredniSONE 10 mg oral tablet (14 sources)Start: 79-47-4960whppyqMIQR 10 MG 4 daily for 4 days, 2 daily for 4 days, then 1 daily for 4 days Orally Once a day for 12 day(s) Jan, ActiveStart: 76-49-8980Vuvct: 71-58-2336npnakpof no122/iron/folic acid ( MULTI ORAL) (2 sources)take [...] Activetopiramate 200 mg oral tablet (20 sources)Start: 85-58-3589wjhh 1 tablet by mouth twice dailyTopiramate 200 mg tablet Active 200 MG PO Twice daily July 12, 2025 12:00am Complies with drug therapyStart: 89-08-3763ckar 1 tablet by mouth twice vwiqy545 mg, Oral, 2 TIMES DAILY, First dose on Pina 01/05/25 at 1400, Until Discontinued, It is not recommended to crush, break, or chew immediate release tablets due to bitter taste.Start: 03-19-2023 End: 96-01-7304rkgk 50 mg by mouth once daily for kbnfwqfe61 mg, oral, Nightly, First dose on Pina [...] dose during or after administration)Start: 10-03-2022 End: 52-72-1621cygc 50 mg by mouth once daily for vapfialr92 mg, oral, Daily, First dose on Thu10/03/22 [...] dose during or after administration)Start: 03-21-2022 End: 17-16-6714exdq 2 tablets by mouth once dailyTopiramate 25 mg tablet Discontinued 25 MG PO Daily December 29, 2023 12:00am July 12, 2025 2:05pm FreeTextSig: TAKE TWO TABLETS BY MOUTH DAILY IN LATE AFTERNOON FOR 30 DAYS; Note: Source Status: Takingon hold; Refills: 1; Qty: 60 Each; Provider: Maya Jacobs LStart: 29-43-4794Nqlekim 25 MG 1 tablet in the evening, [...] Zoster Virus Nucleoside Analog DNA Polymerase InhibitorStart: 40-28-3530vtlPRMxkdxlm (Valtrex) 1 g tablet Take 500 mg by mouth Daily 12/29/2023 ActiveStart: 12-29-2023 End: 65-42-9693spni 1 tablet by mouth once dailyValacyclovir (Valtrex) 1 gram tablet Discontinued 1000 MG PO Daily December 29, 2023 12:00am July 12, 2025 2:03pm FreeTextSi tablet Orally Once a day; Note: Source Status: Taking; Provider:Agueda Valera ( ) End: 79-56-9269ixgx 1 tablet by mouth once dailyvalACYclovir (VALTREX) [...] b12 1 mg/ml injectable solution (17 sources)Vitamin P56Vwstr: 67-16-8919zqofoz 1000 ug by subcutaneous injection every 30 dayscyanocobalamin (Vitamin B-12) 1000 MCG/ML injection Inject 1,000 mcg under the skin every 30 (thirty) days 01/20/2024 ActiveStart: 34-56-1488iwqr 1 tablet by mouth once dailyCyanocobalamin (Vitamin B-12) 500 mcg tablet Active 1 TAB PO Daily December 29, 2023 12:00am FreeTextSi tablet Orally Once a day; Note: Source Status: Taking; Provider: Agueda Valera ( ) Complies with drug therapyStart: 73-16-3402yfvf 1 tablet by mouth once dailyCyanocobalamin (Vitamin B-12) 500 mcg tablet Active 1 TAB PO Daily December 28, 2023 11:00pm FreeTextSi tablet Orally Once a day; Note: Source Status: Taking; Provider: Agueda Valera ( )Start: 00-23-1320sqql 1 tablet by mouth once dailyCyanocobalamin (Vitamin [...] mg oral tablet (20 sources)Start: 01-05-2025 End: 62-16-7692rpmt 4000 mg by mouth every twenty-four crmej448 mg, Oral, ONCE, 1 dose, On Pina 01/05/25 at 0645, Maximum dose of acetaminophen is 4000 mg from al l sources in 24 hours., Pre-op (day of surgery)Start: 03-19-2023 End: 12-21-7742lbzpmypqxcjro (TYLENOL) tablet 975 mgStart: 03-19-2023 End: 71-51-2140ankl 1 tablet by mouth every six hours as neededacetaminophen (TYLENOL) tablet 650 mgStart: 03-19-2023 End: 27-12-9198xdms 2 tablets by mouth three times daily as neededacetaminophen (TYLENOL) 500 mg tablet Take 2 tablets (1,000 mg total) by mouth 3 (three) times a day for 7 days. Take every 8 hours for one week, then as needed. Do not exceed 3,000 mg daily limit. 50 tablet 0 03/19/2023 03/26/2023 ActiveStart: 10-02-2022 End: 89-96-5522lxwp 1000 mg by mouth every six hours1,000 mg, oral, Every 6 hours scheduled, First dose on P[facility] 10/02/22 at 2100, Recovery & On UnitStart: 10-02-2022 End: 64-83-7223umff 2 tablets by mouth three times daily as neededacetaminophen (TYLENOL) 500 mg tablet Take 2 tablets (1,000 mg total) by mouth 3 (three) times a day for 7 days. Take every 8 hours for one week, then as needed. Do not exceed 3,000 mg daily limit. 50 tablet 0 10/02/2022 10/09/2022 ActiveStart: 10-02-2022 End: 80-87-3504tfdi 1 tablet by mouth every six hours as neededacetaminophen (TYLENOL) tablet 325 mgtake 2 capsules by mouth every six hoursaluminum hydroxide 40 mg/ml / magnesium hydroxide 40 mg/ml / simethicone 4 mg/ml oral suspension (2 sources)Start: 03-19-2023 End: 36-93-4963yogurptw-magnesium hydroxide-simethicone (MAALOX) 200-200-20 mg/5 mL suspension 30 mLStart: 10-02-2022 End: 41-80-2682fgndadso-magnesium hydroxide-simethicone (MAALOX) 200-200-20 mg/5 mL suspension 30 mLapixaban 5 mg oral tablet (20 sources)Factor Xa InhibitorStart: 06-05-2021 End: 48-50-3852njvg 1 tablet by mouth twice dailyApixaban (Eliquis) 5 mg tablet Discontinued 5 MG PO Twice daily 60 June 23, 2021 2:30am September 04, 2021 3:21pmStart: 04-30-2021 End: 66-80-2240vyuq 2 tablets by mouth twice daily, then [...] Inhibitor, Nonsteroidal Anti-inflammatory Drug Start: 03-19-2023 End: 51-13-7003xbfl 1 tablet by mouth twice dailyaspirin 81 mg EC tablet Take 1 tablet (81 mg total) by mouth 2 (two) times a day for 28 days. 56 each 0 03/19/2023 03/20/2023 Discontinued (Stop Taking at Discharge)Start: 10-17-2022 End: 09-52-5404uiuo 1 tablet by mouth twice daily, then [...] tablet (2 sources)Cholinergic Muscarinic AgonistStart: 03-19-2023 End: 85-95-9394xztamhdkssn (URECHOLINE) tablet 25 mgStart: 10-02-2022 End: 23-52-5725pohxagbkvwx (URECHOLINE) tablet 25 mgBudesonide / formoterol (20 [...] a dual occupancy room? NoStart: 10-03-2022 End: 05-11-3529agbgkyplrj-formoteroL (SYMBICORT) 160-4.5 mcg/actuation inhaler 2 puffStart: 02-28-3294gnyd 2 puff(s) by inhalation twice dailySymbicort 160-4.5 MCG/ACT 2 puffs Inhalation Twice a day for 30 days Jun, ActiveStart: 33-32-1571Msojm: 05-09-2019 End: 62-72-0458awfx 1 puff(s) by inhalation twice dailyBudesonide-Formoterol (Symbicort) 160-4.5 mcg/actuation Hfa Aerosol Inhaler Discontinued 2 PUFF INHA LATION Twice daily May 08, 2019 11:00pm January 05, 2024 1:29pmStart: 05-09-2019 End: 37-42-3835ixio 1 puff(s) by inhalation twice dailyBudesonide-Formoterol (Symbicort) 160-4.5 mcg/actuation Hfa Aerosol Inhaler Discontinued 2 PUFF INHA LATION Twice daily May 09, 2019 12:00am January 05, 2024 2:29pmStart: 78-48-1704hqmx 1 puff(s) by inhalation twice dailyBudesonide-Formoterol (Symbicort) 160-4.5 mcg/actuation Hfa Aerosol Inhaler Active 2 PUFF INHALATION Twice daily May 09, 2019 12:00am End: 80-50-7628eoin 2 puff(s) by inhalation twice dailybudesonide-formoterol (SYMBICORT) [...] meq/ml injectable solution (2 sources)Start: 03-19-2023 End: 69-01-9236isktwixr Ringer's infusionStart: 10-02-2022 End: 91-60-1350scuj 100 mL intravenously every pgqm631 mL/hr, intravenous, Continuous, Starting on Pina 10/02/22 at 1445calcium polycarbophil 625 mg oral tablet (13 sources)Start: 93-80-5216amvr 625 mg by mouth twice ahwdo123 mg, Oral, 2 TIMES DAILY, First dose [...] oral capsule (11 sources)Cephalosporin AntibacterialStart: 01-05-2024 End: 59-63-4121lywv 1 mg by mouth once dailyCefdinir 300 mg capsule Discontinued MG PO Daily January 05, 2024 12:00am October 27, 2024 1:33pm FreeTextSig: as directed Orally daily; Note: Source Status: Takingon for 6 months; Provider: Agueda Valera ( )Start: 78-55-2848hzoc 1 mg by mouth once dailyCefdinir Active MG PO Daily January 05, 2024 12:00am FreeTextSig: as directed Orally daily; Note: Source Status: Takingon for 6 months; Provider: Agueda Valera ( )cephalexin 500 mg oral capsule (17 sources)Cephalosporin AntibacterialStart: 10-02-2022 End: 28-34-8510xhvc 1 capsule by mouth three times dailycephalexin (KEFLEX) 500 mg capsule Take 1 capsule (500 mg total) by mouth 3 (three) times a day for3 doses. 3 capsule 0 10/02/2022 10/03/2022 ExpiredStart: 12-22-2020 End: 89-23-5016aivj 1 capsule by mouth every six hoursCephalexin 500 mg capsule Discontinued 500 MG PO Q6H 28 December 22, 2020 1:00am April 29, 2021 10:35pm Start: 12-22-2020 End: 21-35-9458qopc 1 capsule by mouth four times dailyCephalexin 500 mg capsule Discontinued 500 MG PO Four times daily 40 December 22, 2020 1:00am 2020 10:35pmcetirizine hydrochloride 10 mg oral tablet (13 sources)Histamine-1 Receptor AntagonistStart: 01-05-2025 End: 16-22-3523urfl 10 mg by mouth once daily10 mg, Oral, DAILY, First dose on Pina 01/05/25 at 1430, Until Discontinuedtake 1 tablet by mouth in the morning cetirizine (ZyrTEC) 10 MG tablet Take 10 mg by mouth in the morning. Active cloNIDine hydrochloride 0.1 mg oral tablet (3 sources)Central alpha-2 Adrenergic AgonistStart: 03-19-2023 End: 16-12-8920ioha 1 tablet by mouth every six hours as neededcloNIDine (CATAPRES) tablet 0.1 mgStart: 10-02-2022 End: 88-73-9935sppa 1 tablet by mouth every six hours as neededcloNIDine (CATAPRES) tablet 0.1 mgclopidogrel 75 mg oral tablet (20 sources)P2Y12 Platelet InhibitorStart: 09-04-2021 End: 32-63-5679zvqs 1 tablet by mouth once dailyClopidogrel 75 mg Tablet Discontinued 75 MG PO Daily 30 February 28, 2022 12:59pm October 27:34pm codeine phosphate 2 mg/ml / guaiFENesin 20 mg/ml oral solution (1 source)Opioid AgonistStart: 06-31-3284ebpq 5 mL by mouth every six hours as needed5 mL, Oral, EVERY 6 HOURS PRN, Starting on Thu01/06/25 at 0650, Until Discontinued, Cough, Congestioncyclobenzaprine hydrochloride 10 mg oral tablet (13 sources)Muscle RelaxantStart: 10-02-2022 End: 54-87-9896fgcfuykvnhzxols (FLEXERIL) tablet 10 mg12 hr dextromethorphan hydrobromide 30 mg / guaiFENesin 600 mg extended release oral tablet (1 source)Uncompetitive U-afjaiq-B-aspartate Receptor Antagonist, Sigma-1 AgonistStart: 44-65-0669akfd 1 tablet by mouth twice daily1 tablet, Oral, 2 TIMES DAILY, First dose on Thu01/06/25 at 0900, Until Discontinued, Do not crush or break.diazePAM 5 mg oral tablet (13 sources)BenzodiazepineStart: 12-29-2023 End: 34-39-3446gkhv 1 tablet by mouth once daily as neededDiazepam 5 mg tablet Discontinued 5 MG PO Daily December 29, 2023 12:00am October 27, 2024 1:35pm Fr eeTextSi tablet as needed Orally Once a day; Note: Source Status: Taking; Provider: Agueda Valera ( )dimenhyDRINATE 50 mg oral tablet (1 source)Start: 01-05-2025 End: 80-78-1863tqxk 1 dose by mouth once daily50 mg, Oral, ONCE, 1 dose, On Thu01/05/25 at 0645, Pre-op (day of surgery)diphenhydrAMINE (3 sources)Histamine-1 Receptor AntagonistStart: 03-19-2023 End: 50-27-1577uody 25 mg intravenously every six hours as mg, intravenous, Every 6 hours PRN, itching, Starting on Thu03/19/23 at 1631Start: 03-19-2023 End: 59-05-8737oaujpndsqjUQHWK (BENADRYL) capsule 25 mgStart: 10-05-2022 End: 97-07-0290lvui 1 capsule by mouth every six hours as neededdiphenhydrAMINE (BENADRYL) capsule 25 mgDULoxetine 30 mg delayed release oral capsule (9 sources)Serotonin and Norepinephrine Reuptake InhibitorStart: 12-29-2023 End: 92-85-9424zaff 1 capsule by mouth once dailyDuloxetine 30 mg capsule,delayed release(DR/EC) Discontinued 30 MG PO Daily December 29, 2023 12:00am January 05, 2024 2:27pm FreeTextSi capsule Orally Once a day; Note: Source Status: Taking; Provider: gAueda Valera ( )take 1 capsule by mouth every twenty-four hoursDULoxetine HCl 30 MG 1 capsule Orally Once a day Active1 ml fentaNYL 0.05 mg/ml injection (3 sources)Opioid AgonistStart: 03-19-2023 End: 43-62-0463qisnaTLN (SUBLIMAZE) injection 50 mcgStart: 10-02-2022 End: 29-86-8104qmprrSHZ (SUBLIMAZE) injection 25 mcgStart: 10-02-2022 End: 19-03-3554foumoUZI (SUBLIMAZE) injection 50 mcgferrous sulfate 325 mg oral tablet (20 sources)Start: 05-09-2019 End: 29-51-7957xmne 1 tablet by mouth once daily as [...] oral tablet (20 sources)Azole AntifungalStart: 06-05-2021 End: 87-81-5126pdeb 1 tablet by mouth once daily as neededFluconazole 100 mg Tablet Discontinued 100 MG PO Daily June 05, 2021 12:00am April 16, 2022 1:52pm as actuat fluticasone propionate 0.25 mg/actuat / salmeterol 0.05 mg/actuat dry powder inhaler (14 sources)Corticosteroid, beta2-Adrenergic AgonistStart: 01-05-2024 End: 87-03-6647Hdterjguqus Propion-Salmeterol (Advair Diskus) 250-50 mcg/dose blister with device Discontinued 1 INH INHALATION Twice daily 60 30 January 05, 2024 12:00am October 27, 2024 1:35pmStart: 12-29-2023 End: 69-69-9021zarr 1 puff(s) by inhalation three times dailyFluticasone Propion-Salmeterol 232-14 mcg/actuation aerosol powdr breath activated Discontinued 1 PUFF INHALATION Three times daily December 29, 2023 12:00am October 27, 2024 1:35pm FreeTextSi puff Inhalation Twice a day; Note: Source Status: Taking; Provider: Agueda Valera ( )Start: 00-43-7446utjb 2 puff(s) by inhalation twice dailyAdvair HFA 115-21 MCG/ACT 2 puffs Inhalation Twice a day for 30 days Oct, Activetake 1 puff(s) by inhalation twice dailyFluticasone-Salmeterol 232-14 MCG/ACT 1 puff Inhalation Twice a day Activegabapentin 300 mg oral capsule (20 sources)Anti-epileptic AgentStart: 91-87-3444gvch 300 mg by mouth three times pgafl197 mg, Oral, 3 TIMES DAILY, First dose on Pina 01/05/25 at 1400, Until DiscontinuedStart: 43-58-3499jqyf 1 dose by mouth once qlglu206 mg, Oral, ONCE, 1 dose, On Pina 01/05/25 at 0645, Pre-op (day of surgery)Start: 03-19-2023 End: 19-60-0376ldqu 300 mg by mouth three times mhykh700 mg, oral, 3 times daily, First dose on Pina 03/19/23 at 2100Start: 10-02-2022 End: 69-63-3282srdk 300 mg by mouth three times mg, oral, 3 times daily, First dose on Pina 10/02/22 at 2100Start: 06-11-2021 End: 71-99-7392bglm 1 tablet by mouth three times dailyGabapentin 300 mg Tablet Discontinued 300 MG PO Three times daily June 11, 2021 12:00am June 11, 2021 2:21pmStart: 21-38-3679yhps 2 capsules by mouth three times dailyGabapentin 300 mg capsule Active 300 MG PO Three times daily April 29, 2021 12:00am 2 capsules orally tid Complies with drug therapyglucagon (rdna) 1 mg injection (1 source)Antihypoglycemic AgentStart: 10-02-2022 End: 92-98-9134vyeocebl injection 1 mg500 ml glucose 500 mg/ml injection (4 sources)Start: 10-02-2022 End: 32-39-4696olryulst 15 gram/59 mL oral solution 30 gStart: 10-02-2022 End: 48-33-2110mbebfinv 15 gram/59 mL oral solution 15 gStart: 10-02-2022 End: 55-85-4924gastcovb (D50W) 50% injection 25 g0.5 ml HYDROmorphone hydrochloride 1 mg/ml prefilled syringe (2 sources)Opioid AgonistStart: 03-19-2023 End: 56-11-8583IBHTDpiubttkt (DILAUDID) injection 0.5 mgStart: 10-02-2022 End: 28-36-5922ILYDPhiipruca (DILAUDID) injection 0.5 mginsulin lispro 100 unt/ml injectable solution (1 source)Insulin AnalogStart: 10-02-2022 End: 23-65-3678ofwxlhf lispro (HumaLOG) injection 1-6 Unitslidocaine 0.05 mg/mg medicated patch (8 sources)Antiarrhythmic, Amide Local AnestheticStart: 01-25-2022 End: 29-32-8034rcdej 1 dose topically once dailyLidocaine 5 % adhesive patch,medicated Discontinued 1 PATCH TOPICAL Daily January 25, 2022 12:00amApril 16, 2022 1:53pm leave on most painful area for up to 12 hrslisinopril 40 mg oral tablet (8 sources)Angiotensin Converting Enzyme InhibitorStart: 05-06-2019 End: 73-53-0422fhht 1 tablet by mouth once dailyLisinopril 40 mg Tablet Discontinued 40 MG PO Daily May 06, 2019 12:00am April 29, 2021 10:36pm loratadine 10 mg oral tablet (20 sources)take 1 tablet by mouth once dailyloratadine (CLARITIN) 10 MG tablet Take 1 tablet by mouth daily SuspendedMagnesium (20 sources)Start: 04-16-2022 End: 52-41-2100hsxt 1 tablet by mouth once dailyMagnesium 200 mg Tablet Discontinued 200 MG PO Daily April 16, 2022 12:00am July 12, 2025 2:03pm Start: 89-18-9467gpqw 1 tablet by mouth once dailyStart: 59-42-5042qmxx 1 tablet by mouth once dailyMagnesium 200 mg Tablet Active 200 MG PO Daily April 15, 2022 11:00pmStart: 49-83-2968bgpo 200 mg by mouth once dailyMagnesium Active 200 MG PO Daily April 16, 2022 12:00amtake 1 capsule by mouth once dailyMagnesium 200 MG 1 capsule with a meal Orally Once a day ActiveMagnesium Activemagnesium hydroxide 80 mg/ml oral suspension (2 sources)Start: 03-20-2023 End: 54-33-9429xiphxiabg hydroxide (MILK OF MAGNESIA) 400 mg/5 mL suspension 30 mLStart: 10-02-2022 End: 31-75-9288ilkecglge hydroxide (MILK OF MAGNESIA) 400 mg/5 mL suspension 30 mLmeropenem (MERREM) 1 g in sodium chloride 0.9 % 100 mL IVPB - MBP (1 source)Start: 03-20-2023 End: 73-25-2642kavgvbtvk (MERREM) 1 g in sodium chloride 0.9 % 100 mL IVPB - MBP methylPREDNISolone 4 mg oral tablet (2 sources)CorticosteroidStart: 10-27-2024 End: 14-42-7979mocj 1 tablet by mouth onceMethylprednisolone (Medrol (Gamaliel)) 4 mg tablets,dose pack Discontinued 0 PO per package directions October 27, 2024 1:00am July 12, 2025 1:58pm PO PER PKG DIRmidodrine hydrochloride 5 mg oral tablet (20 sources)alpha-Adrenergic AgonistStart: 10-02-2022 End: 80-41-1761eovv 2.5 mg by mouth twice daily2.5 mg, oral, 2 times daily, First dose on Pina 10/02/22 at 2100Start: 04-29-2021 End: 54-69-6661irmi 1 tablet by mouth twice dailyMidodrine 2.5 mg tablet Discontinued 2.5 MG PO Twice daily April 29, 2021 12:00am July 12, 2025 2:32pmMounjaro 2.5 MG/0.5ML Subcutaneous Solution Pen-injector (1 source)Mounjaro 2.5 MG/0.5ML Subcutaneous Solution Pen-injector as directed Quantity: 0 Refills: 0 Ordered: 25-Sep-2022 DO ActiveNaloxone (2 sources)Opioid AntagonistStart: 03-19-2023 End: 37-62-0360nfrliymj (NARCAN) injection 0.4 mgStart: 10-02-2022 End: 43-13-2311votthvrl (NARCAN) injection 0.4 mgnitrofurantoin, macrocrystals 25 mg / nitrofurantoin, monohydrate 75 mg oral capsule (13 sources)Nitrofuran AntibacterialStart: 05-27-2022 End: 21-08-0332uyuz 1 capsule by mouth twice daily at mealtimeNitrofurantoin Monohyd/M-Cryst (Macrobid) 100 mg capsule Discontinued 100 MG PO Twice daily 01 05May 27, 2022 12:00am October 27, 2024 1:18pm must administer with a meal/foodStart: 14-42-3326jzxn 1 capsule by mouth twice daily at mealtime Nitrofurantoin Monohyd/M-Cryst (Macrobid) 100 mg capsule Active 100 MG PO Twice daily 14 May 27, 2022 12:00am must administer with a meal/foodOxygen Therapy, Adult (2 sources)Start: 03-19-2023 End: 28-13-4376Kxejig Therapy, AdultStart: 10-02-2022 End: 96-56-5286Suqzel Therapy, Adultpregabalin 100 mg oral capsule (9 sources)Start: 12-29-2023 End: 51-44-6432ptkz 1 capsule by mouth once dailyPregabalin 100 [...] 1 mg Tablet (8 sources)Start: 04-16-2022 End: 29-29-2241pnzr 1 tablet by mouth once daily before mealtimePrenatal Vit- Iron Fum-Folic Ac (Prena-Tab) 65 mg iron- 1 mg Tablet Discontinued 1 TAB PO Daily 2021 12:00am July 12, 2025 2:00pmStart: 03-85-8112utct 1 tablet by mouth once daily before mealtimeStart: 46-71-8586eyig 1 tablet by mouth once daily before mealtimePrenatal Vit-Iron Fum-Folic Ac (Prena-Tab) 65 mg iron- 1 mg Tablet Active 1 TAB PO Daily March 11:00pmStart: 04-16-2022 take 1 tablet by mouth once daily before mealtimePrenatal Vit-Iron Fum-Folic Ac (Prena-Tab) 65 mg iron- 1 mg Tablet Active 1 TAB PO Daily March 12:00am promethazine hydrochloride 25 mg rectal suppository (4 sources)PhenothiazineStart: 03-19-2023 End: 05-98-8571gjbg 1 tablet by mouth every six hours as neededpromethazine (PHENERGAN) tablet 25 mgStart: 03-19-2023 End: 79-09-0279hvac 25 mg rectal route every six hours as neededpromethazine (PHENERGAN) suppository 25 mgStart: 10-02-2022 End: 56-05-6742winw 1 tablet by mouth every six hours as neededpromethazine (PHENERGAN) tablet 25 mgStart: 10-02-2022 End: 31-71-5065fdqj 25 mg rectal route every six hours as neededpromethazine (PHENERGAN) suppository 25 mgrivaroxaban 10 mg oral tablet (8 sources)Factor Xa InhibitorStart: 10-02-2022 End: 69-33-8197gzheeedfkqe (XARELTO) tablet 10 mgsennosides, jail 8.6 mg oral tablet (2 sources)Start: 03-19-2023 End: 56-70-2620hyedx (SENOKOT) tablet 8.6 mgStart: 10-02-2022 End: 59-80-3305fxucu (SENOKOT) tablet 8.6 mgsodium chloride 0.111 meq/ml nasal spray (7 sources)Start: 25-51-7192htix 1 spray(s) nasal route every four hours as needed1 spray, Each Nostril, EVERY 4 HOURS PRN, Starting on Thu01/06/25 at 0650, Until Discontinued, CongestionStart: 01-05-2025 End: 96-87-0293QagqhKFJmor, at 100 mL/hr, CONTINUOUS, Starting on Thu01/05/25 at 1345Start: 03-20-2023 End: 90-13-0093klsfvl chloride 0.9 % flush 10 mLStart: 03-19-2023 End: 17-55-1167uycyow chloride 0.9 % flush 10 mLStart: 03-19-2023 End: 77-63-8606zowrzp chloride 0.9 % infusionStart: 10-02-2022 End: 88-88-4524cuxhgd chloride 0.9 % flush 10 mLspironolactone 50 mg oral tablet (11 sources)Aldosterone AntagonistStart: 04-29-2021 End: 64-38-5966Vzdvclbuscacax 50 mg tablet Discontinued 25 MG PO Daily April 29, 2021 12:00am September 04:22pmStart: 04-29-2021 End: 41-57-8128qbyn 25 mg by mouth once dailySpironolactone Discontinued 25 MG PO Daily April 29, 2021 12:00am September 04, 2021 3:22pmSpironolactone 25 MG 1 tablet Orally Activetemazepam 15 mg oral capsule (20 sources)BenzodiazepineStart: 03-66-4118vjja 15 mg by mouth once daily as ooycjo31 mg, Oral, NIGHTLY PRN, Starting on Thu01/05/25 at 2100, Until Discontinued, SleepStart: 29-61-7685wblt 1 capsule by mouth once daily at bedtime as neededTemazepam 30 mg Capsule Active 30 MG PO Daily at bedtime as needed for Insomnia May 06, 2019 12:00am Complies with drug therapy Tirzepatide (4 sources)Start: 12-29-2023 End: 22-91-5367hhiiuh 1 mg by subcutaneous injection every weekTirzepatide 7.5 mg/0.5 mL pen injector Discontinued MG SUBCUT December 29, 2023 12:00am July 12, 2025 2:02pm FreeTextSi injector Subcutaneous weekly; Note: Source Status: Taking; Refills: 1; Qty: 2 Milliliter; Provider: Maya Jacobs LStart: 84-50-1200jljhtt 1 mg by subcutaneous injection every weekStart: 12-29-2023 inject 1 mg by subcutaneous injection every weekTirzepatide 7.5 mg/0.5 mL pen injector Active MG SUBCUT December 28, 2023 11:00pm FreeTextSi injector Subcutaneous weekly; Note: Source Status: Taking; Refills: 1; Qty: 2 Milliliter; Provider: Maya Jacobs LStart: 47-91-9449zmzwte 1 mg by subcutaneous injection every weekTirzepatide Active MG SUBCUT December 29, 2023 12:00am FreeTextSi injector Subcutaneous weekly; Note: Source Status: Taking; Refills: 1; Qty: 2 Milliliter; Provider: Maya Jacobs Ltirzepatide (Mounjaro) 2.5 mg/0.5 mL pen injector (2 sources) End: 00-28-2562xtevea 0.5 mL by subcutaneous injection every weektirzepatide [...] (MOUNJARO) 2.5 MG/0.5ML SOAJ (1 source) End: 67-41-1279Riychrdpuyw (MOUNJARO) 2.5 MG/0.5ML SOAJ Inject into the skin once a week 01/05/2025 Discontinued (LIST CLEANUP)tiZANidine 4 mg oral tablet (20 sources)Central alpha-2 Adrenergic AgonistStart: 49-45-7491miap 4 mg by mouth once daily4 mg, Oral, NIGHTLY, First dose on Thu01/05/25 at 2230, Until DiscontinuedStart: 76-01-9281ozdz 2 tablets by mouth twice daily as needed Tizanidine 4 mg tablet Active 4 MG PO Twice daily December 29, 2023 12:00am FreeTextSi tablet asneeded Orally TWICE A DAY NEEDED; Note: Source Status: Taking; Provider: Agueda Valera ( ) Complies with drug therapyStart: 03-19-2023 End: 91-40-1448mcpf 8 mg by mouth once daily as needed for muscle spasms8 mg, oral, Daily PRN, muscle spasms, Starting on Thu03/19/23 at 1631Start: 07-31-2021 End: 35-35-2140egil 1 tablet by mouth in the morning, then take 1 tablet by mouth in the eveningtiZANidine HCl - 4 MG Oral Tablet take one tabelt in the morning and one in the evening Quantity: 0Refills: 0 Ordered: 31-Jul-2021 DO Start : 31-Jul-2021 ActiveStart: 05-06-2019 End: 08-10-7807lwxr 2 tablets by mouth twice daily as neededTizanidine 4 mg Capsule Discontinued 4 MG PO Q12H as needed for Muscle Spasm May 06, 2019 12:00am January 25, 2022 8:56pm 2 tablets as needed orally twice a daytake 2 tablets by mouth once dailytiZANidine (ZANAFLEX) 4 MG tablet Take 2 tablets by mouth nightly Suspended End: 74-50-8719qyjs 1 capsule by mouth every twelve hours as neededtiZANidine (ZANAFLEX) 4 MG capsule Take 1 capsule by mouth every 12 hours as needed 01/05/2025 Discontinued (LIST CLEANUP)take 2 tablets by mouth twice daily as neededtiZANidine HCl 4 MG 2 tablet as needed Orally TWICE A DAY NEEDED Active traMADol hydrochloride 50 mg oral tablet (9 sources)Opioid AgonistStart: 03-19-2023 End: 40-05-8094kbjz 50-100 mg by mouth every six hours as neededtraMADoL (ULTRAM) 50 mg tablet Take 1-2 tablets (50-100 mg total) by mouth every 6 (six) hours if needed for moderate pain for up to 7 days. Dx: Z96.6 Max Daily Amount: 400 mg 40 tablet 0 03/19/2023 03/20/2023 Discontinued (Stop Taking at Discharge) Start: 10-02-2022 End: 11-90-9712vviz 50-100 mg by mouth every six hours [...] tablet (2 sources)Serotonin Reuptake InhibitorStart: 03-19-2023 End: 16-61-4766tieUVJesh (DESYREL) tablet 25 mgStart: 10-02-2022 End: 29-14-8517gzsHNJmcf (DESYREL) tablet 50 mg Problems Active Problems Problem ClassificationProblemDateDocumented DateEpisodic/ChronicAcute and chronic tonsillitis (12 sources)Hypertrophy of lingual tonsil; Translations: [Hypertrophy of tonsils]Onset: 269905-38-3345NsjeepkHdzvev (20 sources)Moderate persistent asthma; Translations: [Moderate persistent asthma, uncomplicated]Onset: 07-10-2021 Resolved: 61-54-0139BcjvrgkFoqdpwn and circulatory congenital anomalies (12 sources)Ostium secundum type atrial septal defect; Translations: [Atrial septal defect within oval fossa]Onset: [id number]bk kidney disease (20 sources)Chronic kidney disease stage 3; Translations: [Chronic kidney disease, Stage III (moderate)]Onset: 07-11-2021 Resolved: 66-38-3845QfuapttEpfjtxd kidney disease (20 sources)Chronic kidney disease; Translations: [Chronic kidney disease, stage 3a]Onset: 09-25-2021 Resolved: 24-79-4922Wkwwwel obstructive pulmonary disease and bronchiectasis (17 sources)Chronic obstructive lung disease; Translations: [Chronic airway obstruction, not elsewhere classified]Onset: [id number] obstructive pulmonary disease and bronchiectasis (2 sources)Bronchitis; Translations: [Bronchitis, not specified as acute or chronic]21-94-9188ZujkjxaoMjxdgqabsyygg of surgical procedures or medical care (4 sources)Hypotension following procedure; Translations: [Postprocedural hypotension]Onset: [id number]mp heart failure; nonhypertensive (20 sources)Chronic right-sided congestive heart failure; Translations: [Congestive heart failure, unspecified]Onset: 07-06-2017 Resolved: 04-62-2971EaorrsuPnuosvlz atherosclerosis and other heart disease (13 sources)Atherosclerotic heart disease of [place] coronary artery without angina pectoris; Translations: [Coronary atherosclerosis]Onset: 03-03-2013 06-91-6377BevdahqPslqufwxur and other anemia (20 sources)Anemia in chronic kidney disease; Translations: [Anemia in chronic kidney disease]ChronicDeficiency and other anemia (1 source)Anemia in chronic kidney diseaseOnset: 09-25-2021 Resolved: 32-74-8970DhmvjqgUnhepidtmf and other anemia (2 sources)Iron deficiency anemia, unspecified; Translations: [Iron deficiency anemia, unspecified]51-62-4485BcqhdplsZerzyeag mellitus without complication (15 sources)Diabetic on diet only; Translations: [Diabetes mellitus without mention of complication, type II orunspecified type, not stated as uncontrolled] Onset: 232380-66-3685IhelvsoBqejurzh mellitus without complication (10 sources)Other abnormal glucose; Translations: [Impaired fasting glucose] Onset: 07-11-2021 Resolved: 27-89-5531MsnskwczHxuxadmhby disorders (20 sources)Gastroesophageal reflux disease; Translations: [Gastro-esophageal reflux disease without esophagitis]Onset: 07-06-2017 Resolved: 32-95-8436VqiluxcPvpfrsygk hypertension (20 sources)Hypertensive disorder; Translations: [Essential (primary) hypertension]Onset: 02-18-2012 Resolved: 68-46-0807JvnmyyrNxzw and other crystal arthropathies (20 sources)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; Translations: [Other secondary chronic gout, unspecified site, without tophus (tophi)]Onset: 04-02-2022 Resolved: 23-14-8513JgaqvppHizakcdrxwok with complications and secondary hypertension (20 sources)Chronic kidney disease due to hypertension; Translations: [Hypertensive chronic kidney disease withstage 1 through stage 4 chronic kidney disease, or unspecified chronic kidney disease]Onset: 09-25-2021 Resolved: 53-52-5134RqemipvAkqnuqljkomex and screening for infectious disease (2 sources)Patient encounter status; Translations: [Other specified vaccination] 09-28-6942FrsvlussUwcilidznun deficiencies (3 sources)Vitamin D deficiency, unspecified; Translations: [Vitamin D deficiency]Onset: 328381-84-9614CjqcstnNepbvltzsff deficiencies (2 sources)Cobalamin deficiency; Translations: [Deficiency of other specified B group vitamins]95-43-4869KdclccqfCkmsiokocnehbs (20 sources)Osteoarthritis of knee; Translations: [Osteoarthritis of knee, unspecified]Onset: 11-05-2021 Resolved: 69-62-3658QdgukraPpcuk aftercare (6 sources)Other buttermaker (current) drug therapy; Translations: [OTH SENIOR LIVING CURRENT DRUG THERAPY]Onset: 04-16-2022 Resolved: 39-69-3259LacnzlzeDayqw aftercare (1 source)halfway (current) use of antithrombotics/antiplatelets; Translations: [BLUE CRABBER ANTITHROMBOT/ANTIPLATLETS]Onset: 59-06-8127Lvbcqxlo Other aftercare (12 sources)Encounter for other orthopedic aftercareEpisodicOther aftercare (12 sources)Encounter for other specified surgical aftercareEpisodicOther connective tissue disease (2 sources)Presence of right artificial knee joint; Translations: [PRESENCE RT ARTIFICIAL K]Onset: 03-73-9903FtygxlwKefbx connective tissue disease (20 sources)Presence of left artificial knee joint; Translations: [Presence of total left knee joint prosthesis]Onset: 57-74-1858HiczleyZqunq connective tissue disease (12 sources)History of arthroplasty of left knee; Translations: [Presence of left artificial knee joint]Onset: 130777-38-9906UntnjipRrzqf connective tissue disease (12 sources)History of total knee arthroplasty; Translations: [Presence of unspecified artificial knee joint]Onset: 510049-29-5845BovvpprUcmht connective tissue disease (1 source)History of left total knee replacement; Translations: [Presence of left artificial knee joint]12-79-1112TyzkbahMpevq connective tissue disease (20 sources)Trochanteric bursitis, left hip; Translations: [TROCHANTERIC BURSITIS LEFT HIP]Onset: 40-16-0119AlpanspgFqplq diseases of kidney and ureters (20 sources)Hyperparathyroidism due to renal insufficiency; Translations: [Secondary hyperparathyroidism of renal origin]ChronicOther diseases of kidney and ureters (4 sources)Secondary hyperparathyroidism of renal origin; Translations: [SEC HYPERPARATHYROIDISM RENAL ORIGN]Onset: 09-25-2021 Resolved: 12-70-4387GziapjlQyhhz ear and sense organ disorders (4 sources)Sensorineural hearing loss, bilateral; Translations: [Sensorineural hearing loss, bilateral]93-13-8190PdoockjMqkjq ear and sense organ disorders (2 sources)Ear sensations - finding; Translations: [Other specified disorders of ear, bilateral]72-93-7146OihmxjskPdpvt ear and sense organ disorders (2 sources)Bilateral tinnitus; Translations: [Tinnitus, bilateral]03-14-2025 EpisodicOther endocrine disorders (20 sources)Hypoglycemia; Translations: [Hypoglycemia, unspecified]ChronicOther endocrine disorders (5 sources)Hypoglycemia, unspecified; Translations: [Hypoglycemia E16.2]Onset: 07-11-2021 Resolved: 63-24-5877KtlpyvtOdath endocrine disorders (2 sources)Hyperparathyroidism; Translations: [Hyperparathyroidism, unspecified] 20-71-3833BzkipmyDnvay gastrointestinal disorders (8 sources)Bariatric surgery status; Translations: [Gastric bypass status for obesity Z98.84]Onset: 07-11-2021 Resolved: 58-94-0908HzyygdpgCxlll lower respiratory disease (2 sources)Dyspnea; Translations: [Shortness of breath]EpisodicOther nervous system disorders (20 sources)Chronic pain; Translations: [Other chronic pain]ChronicOther nervous system disorders (7 sources)Other chronic pain; Translations: [Other chronic pain G89.29]Onset: 07-31-2021 Resolved: 57-36-5155JljihrzSrzds nervous system disorders (4 sources)Chronic pain syndrome; Translations: [CHRONIC PAIN SYNDROME]Onset: 71-68-1278WryuihlSbqdn non-traumatic joint disorders (20 sources)Pain in left knee; Translations: [Pain, joint, knee, left]Onset: 12-21-2017 Resolved: 48-71-7548HdshcltdMbhyt non-traumatic joint disorders (20 sources)Arthralgia of the lower leg; Translations: [Pain in right knee] EpisodicOther non-traumatic joint disorders (14 sources)Pain in left hip; Translations: [Left hip pain]Onset: 04-28-2025 EpisodicOther non-traumatic joint disorders (14 sources)Effusion, left knee; Translations: [Effusion, left knee]Onset: 76-60-7627OwjphshcPyyhx non-traumatic joint disorders (2 sources)Hip pain; Translations: [Pain in left hip]46-18-7777BaltisjgBdkbm nutritional; endocrine; and metabolic disorders (20 sources)Body mass index 40+ - severely obese; Translations: [Morbid obesity] Onset: 536618-45-5437LasuixlYlwnp nutritional; endocrine; and metabolic disorders (20 sources)Morbid obesity; Translations: [Morbid (severe) obesity due to excess calories]Onset: 634269-31-9627WiyqnwpWvddq nutritional; endocrine; and metabolic disorders (20 sources)Metabolic syndrome X; Translations: [Metabolic syndrome]ChronicOther nutritional; endocrine; and metabolic disorders (4 sources)Morbid (severe) obesity due to excess calories; Translations: [Morbid obesity E66.01]Onset: 07-10-2021 Resolved: 56-24-2994PsuxigePvwcb nutritional; endocrine; and metabolic disorders (8 sources)Body mass index (BMI) 45.0-49.9, adult; Translations: [BMI 45.0-49.9, adult Z68.42]Onset: 07-11-2021 Resolved: 28-04-5148PfpucaxLcdgm nutritional; endocrine; and metabolic disorders (8 sources)Metabolic syndrome; Translations: [Metabolic syndrome X E88.81]Onset: 07-11-2021 Resolved: 26-21-3313BetdycxOywph nutritional; endocrine; and metabolic disorders (20 sources)Obesity; Translations: [Obesity, unspecified]ChronicOther nutritional; endocrine; and metabolic disorders (4 sources)Body mass index (BMI) 40.0-44.9, adultOnset: 05-20-2022 Resolved: 94-24-6351JyuijqdRmxnh nutritional; endocrine; and metabolic disorders (3 sources)Obese class II; Translations: [Obesity, Class II, BMI 35-39.9]Onset: 105003-09-4016DudzsoxJrixe nutritional; endocrine; and metabolic disorders (2 sources)Hypomagnesemia; Translations: [Hypomagnesemia]02-47-2734PjgbwgtSovca nutritional; endocrine; and metabolic disorders (2 sources)Hyperuricemia; Translations: [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 inflammatory arthritis and tophaceous disease]24-72-6509IasmdgirFrshb upper respiratory disease (20 sources)Allergic rhinitis; Translations: [Allergic rhinitis, unspecified] Onset: 589940-40-3825ChujeooBtyal upper respiratory disease (4 sources)Allergic rhinitis, unspecified; Translations: [Allergic rhinitis J30.9]Onset: 07-10-2021 Resolved: 20-03-1628XfckgtvNxsvwt media and related conditions (2 sources)Dysfunction of bilateral eustachian tubes; Translations: [Unspecified Eustachian tube disorder, bilateral]80-37-6687ShshloyxCcajqrxzwv and visceral atherosclerosis (12 sources)Atherosclerosis of artery ; Translations: [Unspecified atherosclerosis]Onset: 167623-09-1084RpgfdfcFoqpgpwuu heart disease (12 sources)Pulmonary hypertension; Translations: [Pulmonary hypertension, unspecified]Onset: 953972-23-6070DcjxwftFtukswek codes; unclassified (2 sources)Sleep apnea; Translations: [Unspecified sleep apnea]ChronicResidual codes; unclassified (20 sources)Obstructive sleep apnea syndrome; Translations: [Obstructive sleep apnea (adult) (pediatric)]Onset: 265157-23-7165XrsimqdCczkmvmj codes; unclassified (12 sources)Obstructive sleep apnea (adult) (pediatric); Translations: [JEREMY (obstructive sleep apnea) G47.33]Onset: 07-10-2021 Resolved: 90-09-2641ArjmgbgVsmzeeiq codes; unclassified (20 sources)Insomnia; Translations: [Insomnia, unspecified]EpisodicScreening and history of mental health and substance abuse codes (20 sources)Ex-smoker; Translations: [Personal history of tobacco use]Episodic Comment on above:high school smoker;Spondylosis; intervertebral disc disorders; other back problems (20 sources)Degeneration of lumbar intervertebral disc; Translations: [Other intervertebral disc degeneration, lumbar region]Onset: 81-71-7279KmoivajSnpfnqb disorders (20 sources)Nontoxic multinodular goiter; Translations: [Thyroid nodule]Onset: 10-62-9840PhsnkjiQfuckvvcagug (3 sources)Unknown / UNK(Unknown)Onset: 77-82-3255Ohptyaxggtfv (1 source)OTH SPEC SYSTEM INVOLV CONNECT TISS; Translations: [OTH SPEC SYSTEM INVOLV CONNECT TISS]Onset: 39-42-6924Iknrteexpeqd (1 source)Left knee pain, unspecified tkrmttettt12-46-8824 Past or Other Problems Problem ClassificationProblemDateDocumented DateEpisodic/ChronicComplication of device; implant or graft (20 sources)Loosening of knee joint prosthesis; Translations: [Mechanical loosening of internal left knee prosthetic joint, subsequent encounter]Onset: 29-09-8427IrdkftrpWricetcuid associated with dizziness or vertigo (14 sources)Dizziness; Translations: [Dizziness and giddiness]Onset: 02-19-2012 60-15-9203NdvcwbxyHnanzracus and other anemia (4 sources)Anemia, unspecified; Translations: [ANEMIA UNSPECIFIED]Onset: 09-25-2021 Resolved: 74-03-5481AbugnnbdLwzlmvgoej and other anemia (20 sources)Iron deficiency anemia; Translations: [Iron deficiency anemia, unspecified]Onset: 743477-41-2491TbnvsutrTefhipmtjz and other anemia (12 sources)Anemia; Translations: [Anemia, unspecified]Onset: 02-18-2012 42-64-4693BjpdaxkuSlevzcvdnpbau (14 sources)Cervical lymphadenopathy; Translations: [Localized enlarged lymph nodes]Onset: 563130-64-5349XbynmkxfAefgz aftercare (1 source)Encounter for follow-up examination after completed treatment for conditions other than malignant neoplasm; Translations: [Encounter for follow-up examination after completed treatment for conditionsother than malignant neoplasm]Onset: 46-01-1484QaigwkwwDkmgm circulatory disease (20 sources)Low blood pressure; Translations: [Hypotension, unspecified]Onset: 719817-60-6339YkkcenfqFzjef connective tissue disease (20 sources)Cramp; Translations: [Cramp and spasm]Onset: EpisodicOther connective tissue disease (12 sources)Cramp of muscle of left lower limb; Translations: [Cramp and spasm] Onset: 531555-43-8038IqqqqimqTtbdd connective tissue disease (11 sources)Fibromyalgia; Translations: [Fibromyalgia]Onset: 07-06-2017 60-90-9796WxqernpaCzhhq diseases of kidney and ureters (20 sources)Acute renal insufficiency; Translations: [Disorder of kidney and ureter, unspecified]Onset: 176760-57-0605FqaawybeEpnci gastrointestinal disorders (20 sources)History of bariatric surgical procedure; Translations: [Bariatric surgery status]Onset: 644740-46-9396NrdgyknhYciuc lower respiratory disease (12 sources)Dyspnea on exertion; Translations: [Other forms of dyspnea]Onset: 924047-96-2023SgoounbaLjths lower respiratory disease (12 sources)Restrictive lung disease; Translations: [Other disorders of lung] Onset: 172231-17-7517KcnqiywzHnrny non-traumatic joint disorders (1 source)Pain in right knee; Translations: [PAIN IN RIGHT KNEE]Onset: 46-71-1300VwjohejgGvsfj nutritional; endocrine; and metabolic disorders (4 sources)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 inflammatory arthritis and tophaceous disease; Translations: [HU W/OSIGNS IA AND TOPGRACECEOUS DZ]Onset: 09-05-2021 Resolved: 83-09-0827LhbzxefjIitlf screening for suspected conditions (not mental disorders or infectious disease) (20 sources)Abnormal results of cardiovascular function studies; Translations: [Abnormal result of cardiovascular function study, unspecified]Onset: 02-19-2012 85-79-0099KjieovqtOkdkz skin disorders (4 sources)Localized swelling, mass and lump, left lower limb; Translations: [LOC SWELL MASS LUMP LT LOWER LIMB]Onset: 40-27-4798AfzkyhouXlpnlkhgixl and intestinal abscess (20 sources)Infectious disease of abdomen; Translations: [Peritonitis, unspecified]Onset: 389510-96-5661EzoxutkgSwnyuuxvz; thrombophlebitis and thromboembolism (20 sources)Left lower limb vein thrombophlebitis; Translations: [Phlebitis and thrombophlebitis of other deep vessels of left lower extremity]Onset: 03-17-2023 43-15-5570OlhtgpkrSyrrowyw codes; unclassified (14 sources)Edema; Translations: [Edema]Onset: 095764-07-1213Fppmravs Residual codes; unclassified (8 sources)Localized edema; Translations: [Lower extremity edema R60.0]Onset: 07-25-2021 Resolved: 94-44-7130WiwugdzcQrchuwiu codes; unclassified (1 source)Insomnia, unspecified; Translations: [Insomnia, unspecified type G47.00]Onset: 07-25-2021 Resolved: 94-82-5733BhttofvgTohpkilj codes; unclassified (14 sources)Localized edema; Translations: [Localized edema]Onset: 05-27-2018 47-78-3582UedbsazjTjpw and subcutaneous tissue infections (20 sources)Cellulitis; Translations: [Cellulitis, unspecified]Onset: 02-03-2024 98-32-2948QyqfnsekAkxcoweasru; intervertebral disc disorders; other back problems (20 sources)Pain in thoracic spine; Translations: [Low back pain]Onset: 07-25-2021 Resolved: 52-00-0998MypyixbbGwijnwuavzwc (1 source)Z96.651Onset: 97-29-9449Eizahwd tract infections (20 sources)Urinary tract infectious disease; Translations: [Urinary tract infection, site not specified]Onset: 922769-92-9248PtfbdqxrHjkia infection (20 sources)Viral disease; Translations: [Viral infection, unspecified]Onset: 234512-41-3506Afngmkeb Results Test NameValueInterpretationReference RangeFacilityMain OR Intraoperative Record on 79-27-9107Itfb OR Intraoperative RecordMain OR Intraoperative Record IntraOp Document Type FT Summary Primary Physician: Glen Bejarano MD Finalized Date/Time: 07/17/25 10:25:56 Pt. Name: RENUKA PADRON Shaun SinghB./Sex: 1955 Female Med Rec #: [id number] Physician: Glen Bejarano MD Financial #: [id number] Pt. Type: O Room/Bed: / Admit/Disch: 07/13/25 [...] Julia Vincent RN, Bessie Zamorano Role Performed [employer] COORDINATOR Ore Dryer - Primary Ore Dryer - Primary Time In 07/13/25 08:52:00 07/13/25 [...] dilator. Primary Procedure Yes Primary Surgeon Glen Bjearano MD Start 07/13/25 08:56:00 Stop 07/13/25 08:58:00 [...] and tissue Entry 1 Skin Integrity Intact, Colver, Warm, & Skin Abnormality No Dry Outcomes [...] Checked Yes By Julia Vaughan RN Outcomes Pa (more content not included)...[facility] Discharge Instructionson 78-85-2968Aplhutdvj InstructionsDischarge Instructions RENUKA PADRON Shaun :1955 Visit [...] sulfate fluticasone nasal (fluticasone 0.05 mg/inh Nasal [place]) gabapentin (gabapentin 300 mg Cap) hydrOXYzine magnesium [...] Follow Up with Darci BRYANT, KLAUS Parsons, [facility] When: Comments: Call for any problems. If you do not have a follow-up appointment already scheduled, please call the office. Where: [address], [address] [address]- [phone] Business (1) Medications What How Much When [...] fluticasone nasal (fluticasone 0.05 mg/ inh Nasal [place]) 2 Sprays Nasal Inhalation Every day Unchanged [...] Materials Esophageal Dilatation [Image (more content not included)...[facility] SystemComment on above:Result Comment: Electronically Signed By: Jah REYNA, Megan Zayas\Date and Time Signed: 07/13/25 09:11 EDTMain OR PACU I Recordon 14-54-3015Zsyl OR PACU I RecordMain OR PACU I Record PACU Phase I Document Type FT Summary Primary Physician: Glen Bejarano MD Finalized Date/Time: 07/13/25 09:43:05 Pt. Name: NEREIDA RENUKACHAKA Mojica./Sex: 1955 Female Med Rec #: [id number] Physician: Glen Bejarano MD Financial #: [id number] Pt. Type: O Room/Bed: / Admit/Disch: 07/13/25 [...] Signatures Signed By: Gayla Mcnally RN 07/13/25 09:43NoTriHealth [facility] HospitalMain OR Preoperative Recordon 27-32-2163Atoi OR Preoperative RecordMain OR Preoperative Record Holding Area Document Type FT Summary Primary Physician: Glen Bejarano MD Finalized Date/Time: 07/13/25 07:51:46 Pt. Name: RENUKA PADRON/Sex: 1955 Female Med Rec #: [id number] Physician: Glen Bejarano MD Financial #: [id number] Pt. Type: O Room/Bed: / Admit/Disch: 07/13/25 [...] Signatures Signed By: Marita Schneider RN 07/13/25 07:51[facility] Erythrocyte distribution width Auto (RBC) [Ratio]Ordered By: Mabel Henderson on 06-36-4048Bzgkvadfgnl distribution width (RBC) [Ratio]14.1 %11.0-15.0[facility] CampusGlomerular filtration rate (GFR) estimation in non- AmericanOrdered By: Mabel Henderson on 28-88-4480VHM/1.73 sq M.predicted among non-blacks MDRD (S/P/Bld) [Vol rate/Area]50 mL/min/{1.73_m2}Low>=60 mL/min/1.73m 2FAkron Children's HospitalHematocrit Auto (Bld) [Volume fraction]Ordered By: Mabel Henderson on 85-67-7449Vnlavapwbs (Bld) [Volume fraction]38.4 %36.0-48.0[facility] CampusHemoglobin [Mass/volume] in BloodOrdered By: Mabel Henderson on 85-31-8477Koggneutlj (Bld) [Mass/Vol]12.2 g/dL12.0-16.0[facility] CampusLaboratory - Chemistry and Chemistry - challengeOrdered By: Mabel Henderson on 91-18-8125Kkqsayb [Mass/Vol]3.3 g/dLLow3.4-5.0[facility] CampusCalcium [Mass/Vol] 8.5 mg/dL8.5-10.1FAkron Children's HospitalChloride [Moles/Vol]107 mmol/L 98-107[facility] CampusCO2 [Moles/Vol]27.2 mmol/L21.0-32.0 [facility] CampusCreatinine [Mass/Vol]1.08 mg/dLHigh0.55-1.02 [facility] CampusGFR/1.73 sq M.predicted MDRD (S/P/Bld) [Vol rate/Area]mL/min/{1.73_m2}>=60 mL/min/1.73m 2FAkron Children's Hospital Glucose [Mass/Vol]100 mg/dQ98-220AtjrmxeizSt. Mary'[facility] [place] CampusPotassium [Moles/Vol]3.9 mmol/L3.5-5.1FOhioHealth Southeastern Medical Centerodium [Moles/Vol] 143 mmol/K059-621RtlkpkryjSt. Mary'S [facility], [place] CampusUrea nitrogen [Mass/Vol]33.0 mg/dLHigh7.0-18.0[facility] CampusUrea nitrogen/Creatinine [Mass ratio]30.6 mg/mgSt. Mary'S Medical Center, [place] CampusBilirubin Ql (U)Negative NEGATIVESt. Mary'S [facility], [place] CampusGlucose (U) [Mass/Vol]NegativeNEGATIVE [facility] CampusKetones Ql (U)NegativeNEGATIVESt. Mary'S Medical Center, Ir[place] CampuspH (U)7.5 [pH]5.0-9.0[facility] Specific gravity (U) [Rel density]1.0101.005-1.025[facility] CampusUrobilinogen Qn (U)0.2 {Herrera'U}/dL0.2-1.0[facility] CampusLaboratory - Specimen informationOrdered By: Mabel Henderson on 07-03-2025 Appearance (U)CLEARCLEARFAkron Children's HospitalColor (U)LT. YELLOW YELLOWSt. Mary'S [facility] Center, [place] CampusLaboratory - UrinalysisOrdered By: Mabel Henderson on 55-60-9326Iigokdfwr esterase Test strip Ql (U)SMALLAbnormalNEGATIVE St[facility] CampusNitrite Ql (U)NegativeNEGATIVESt. Mary'S Medical Center, [place] CampusProtein (U) [Mass/Vol]29.7 mg/dLHigh<=11.9[facility] CampusProtein Ql (U)TRACE mg/dLNEG/TRACESt. Mary'S Medical Center, [place] CampusLeukocytes [#/volume] corrected for nucleated erythrocytes in Blood by Automated counOrdered By: Mabel Henderson on 18-35-0966RGK corrected for nucl RBC Auto (Bld) [#/Vol]6.6 10 3/uL4.0-11.0[facility] MCH Auto (RBC) [Entitic mass]Ordered By: Mabel Henderson on 24-60-6471HCF (RBC) [Entitic mass]28.3 pg26.7-34.0[facility] CampusMCHC Auto (RBC) [Mass/Vol]Ordered By: Mabel Henderson on 14-39-9343VZIG (RBC) [Mass/Vol]31.8 g/dL 29.9-35.2FAkron Children's HospitalMCV Auto (RBC) [Entitic vol]Ordered By: Mabel Henderson on 99-76-3911MFK (RBC) [Entitic vol]89.1 fL81.0-99.0[facility] CampusNo Panel InformationOrdered By: Mabel Henderson on 49-95-8356Lmefjzfnvsy Hormone (Intact)161 pg/lVMbekasia21-45QufqjzvdcSt. Mary'S Medical Center, [facility] CampusComment on above:Performed at: - [facility] [address] [id number] Director: Ziggy Rodney PhD, Phone: [phone] Phosphorus Level3.8 mg/dL2.6-4.7FAkron Children's HospitalUrine Occult BloodNegativeNEGWright-Patterson Medical CenterUrine Random Creatinine 102.74 mg/dL20.00-300.00[facility] CampusPlatelet mean volume Auto (Bld) [Entitic vol]Ordered By: Mabel Henderson on 41-34-0943Ntxasouj mean volume (Bld) [Entitic vol]9.8 fL9.5-13.5FAkron Children's Hospital Platelets Auto (Bld) [#/Vol]Ordered By: Mabel Henderson on 36-19-6130Sngizeoik (Bld) [#/Vol]250 10 3/hG759-971CqbfwhwnwSt. Mary'S Medical Center, [facility] CampusRBC Auto (Bld) [#/Vol]Ordered By: Mabel Henderson on 29-64-3399IAS (Bld) [#/Vol]4.31 10 6/uL 4.20-5.40Mercy Hospitalerum or plasma anion gap determinationOrdered By: Mabel Henderson on 47-13-2134Qmiqw gap [Moles/Vol]12.7 mmol/LFAkron Children's HospitalUrine protein/creatinine ratioOrdered By: Mabel Henderson on 24-63-5581Zkpkgul/Creatinine (U) [Ratio]0.29[facility] CampusAmbulatory Visit Summaryon 25-60-2078Zzwdeycyeq Visit Summary Ambulatory Visit Summary RENUKA PADRON [...] sulfate fluticasone nasal (fluticasone 0.05 mg/inh Nasal [place]) gabapentin (gabapentin 300 mg Cap) hydrOXYzine magnesium [...] fluticasone nasal (fluticasone 0.05 mg/ inh Nasal [place]) 2 Sprays Nasal Inhalation Every day Contact [...] if quest (more content not included)...Normal [facility] HospitalGastroenterology Office/Clinic Noteon 06-13-2025 Gastroenterology Office/Clinic NoteGastroenterology [...] examined esophagus. Empiric dilation with Delcid 54 Egyptian was done, no mucosal disruption was noted [...] EGD 05/2024: Empiric dilation with Delcid 54 Egyptian - Schedule EGD with Delcid dilation to [...] tab, Oral, Daily fluticasone 0.05 mg/inh Nasal [place], 2 spray(s), Nasal, Daily gabapentin 300 mg [...] 07/19/2018 Recorded influenza virus (more content not included)...[facility] Comment on above:Result Comment: Electronically Signed By: Amanda Tyson MA\.br\Date and Time Signed: 06/13/25 10:58 EDT\.br\Electronically Co-Signed By: Darci BRYANT, Glen Ta\.br\Date and Time Co-Signed: 06/13/25 16:19 EDTC REACTIVE PROTEINon 06-58-7952JFZ High sensitivity method [Mass/Vol]4.44 mg/LNINF - 10.00 mg/LOSU [facility] HospitalInterpretation and review of laboratory resultsNoMethodist Hospital of Southern CaliforniaCRP [Mass/Vol] 4.44 mg/LNormal<10.00[facility] Medical CenterComment on above:Performed By: #### CRP #### U [facility] (DEFAULT) [address] [address]HPO,PLATELETSon 68-71-2543Fodjhzpalhu distribution width (RBC) [Ratio]14.2 %10.8 - 14.9 %[facility] HospitalHematocrit (Bld) [Volume fraction]39.5 %34.9 - 44.3 %[facility] HospitalHemoglobin (Bld) [Mass/Vol] 12.5 g/dL11.4 - 15.2 g/dLCleveland Clinic Mercy HospitalInterpretation and review of laboratory resultsNoPremier Health Upper Valley Medical CenterMCH (RBC) [Entitic mass]27.7 pg 25.9 - 33.9 pgCleveland Clinic Mercy HospitalMCHC (RBC) [Mass/Vol]31.6 g/dL31.4 - 35.9 g/dLCleveland Clinic Mercy HospitalMCV (RBC) [Entitic vol]87.4 fL79.6 - 97.7 [facility] DublinPlatelet mean volume (Bld) [Entitic vol]11.6 fL8.5 - 12.2 [facility] DublinPlatelets (Bld) [#/Vol]232 10*3/uL150 - 393 K/[facility] DaytonRBC (Bld) [#/Vol]4.52 10*6/[facility] DaytonWBC (Bld) [#/Vol]8.1 10*3/uL3.99 - 11.19 K/[facility] DaytonOSU [facility] Good Samaritan HospitalHematocrit (Bld) [Volume fraction]39.5 %Uxhszk14.9-44.3[facility] Campus Medical CenterComment on above:Performed By: #### HEMOGC #### [facility] (DEFAULT) [address] [place], [place] [address]Xjyzsrhors (Bld) [Mass/Vol]12.5 g/qIHbfldv72.4-15.2[facility] Campus Medical CenterComment on above:Performed By: #### HEMOGC #### [facility] (DEFAULT) [address] [place] [address]1XEK (RBC) [Entitic vol]87.4 jFFjuqhu26.6-97.7[facility] Campus Medical CenterComment on above:Performed By: #### HEMOGC #### [facility] (DEFAULT) [address] [place] [address]Povr Cell Hgb27.7 gvIelypo57.9-33.9[facility] Campus Medical CenterComment on above:Performed By: #### HEMOGC #### [facility] (DEFAULT) [address] [place] [address] 30962Wsss Cell Hgb Conc31.6 g/vYSyackt87.4-35.9[facility] Medical CenterComment on above:Performed By: #### HEMOGC #### [facility] (DEFAULT) [address] [place], [place] [address]Mmxgstcv mean volume (Bld) [Entitic vol]11.6 fLNormal8.5-12.2 [facility] CenterComment on above:Performed By: #### HEMOGC #### [facility] (DEFAULT) [address] [place] [address]Isbysgfcr (Bld) [#/Vol]232 10*3/kJSdbdsc535-785GcpaMain Campus Medical CenterComment on above:Performed By: #### HEMOGC #### [facility] (DEFAULT) [address] [place] [address] 16244QUP (Bld) [#/Vol]4.52 10*6/uLNormal3.91-5.04[facility] Medical CenterComment on above:Performed By: #### HEMOGC #### [facility] (DEFAULT) [address] [place] [address] 92280RJM Kmqnsdphkeav17.2 %Eetemg32.8-14.9[facility] Medical CenterComment on above:Performed By: #### HEMOGC #### U [facility] (DEFAULT) [address] [place] [address] 7[address]IDW (Bld) [#/Vol]8.10 10*3/uLNormal3.99-11.19[facility] Medical CenterComment on above:Performed By: #### HEMOGC #### [facility] (DEFAULT) [address] [place] [address] 90994FEEFVOMWTRHCX RATE, AUTOMATEDon 55-35-7720KXD (Bld) [Velocity] 26 mm/hNINFOSU [facility]aritan HospitalInterpretation and review of laboratory resultsNormalOSU [facility]aritan HospitalOSU [facility] HospitalESR Wedeuclarc96 mm/hrNormal<30[facility] Medical CenterComment on above: Performed By: #### ESR #### U [facility] (DEFAULT) [address] [place] [address] 84692HC HIP LEFT 2-3 VIEWSon 79-81-9361NY HIP LEFT 2-3 VIEWSEXAM: XR HIP LEFT [...] neck/greater trochanter, possibly related to prior trauma. [facility]XR [facility] 2 Viewson 04-28-2025 [...] neck/greater trochanter, possibly related to prior trauma. [facility] ClinicRadiology Study observation (narrative)OSMarietta Osteopathic ClinicXR Hip - left 2 ViewsOrdered By: Wu Cole on 20-31-6786GULMarietta Osteopathic Clinic Work Phone: XR KNEE LEFT 3+ VIEWS W/ BILATERAL STANDING 1 VIEWon 82-14-6416EV KNEE LEFT 3+ VIEWS W/ BILATERAL STANDING [...] Posterior heterotopic ossification versus intra-articular loose bodies. NCleveland Clinic Union HospitalXR Knee - bilateral Views W standingon 91-58-3600YAXXTZUJEK: Intact total left knee arthroplasty hardware and [...] Posterior heterotopic ossification versus intra-articular loose bodies. [facility] HospitalOSU [facility] HospitalRadiology Study observation (narrative)[facility] Samaritan HospitalUrine Cultureon 32-68-3752Gnubfasp identified Cx Nom (U)<9,000 colonies/ml mixed bacterial skin contaminants 2 Days PERFORMED BY: [address] [place] [address] PATHOLOGIST ARTIST'S MODEL ADILSON JUAREZ M.D.[facility] Physician GroupComment on above: Performed By: #### CUU #### [facility] [address] [place] [id number] USANo Panel Informationon 43-93-1696Sdry Tone Audiometry Audio indicated a mild to severe sensorineural hearing loss, bilaterally. NOMS Lisseth SaldañaUS Thyroid glandon 08-83-2650[place] [address] Ultrasound Report Signed Patient: RENUKA PADRON MR#: [id number] : 1955 Acct:[id number] Age/Sex: 69 / F ADM Date: 01/24/25 Loc: US Attending Dr: Leah Barrera M.D. Ordering Physician: Leah Barrera M.D. Date of Service: 01/24/25 Procedure(s): US thyroid Accession Number(s): [id number] cc: PETER SOSA D.O.; Leah Barrera M.D. [place] [id number] Patient Name: RENUKA PADRON MRN: [id number] date: 1955 Sex: F Assigned Patient Location: US Current Patient Location: US Accession/Order Number: [id number] Exam Date: 01/24/2025 12:07 Report Date: 01/24/2025 [...] Tate Jr., D.O.01/24/2025 12:12 PM Dictation Location: [place] [address] Electronically authenticated by: [id number] Y Date: 01/24/2025 12:12 Dictated By: Carlos Tate M.D. Signed By: 01/24/25 1215 DD/ 1212 TD/TT: Architectural Administrative Assistant:TBHRadiology, Radiologist, - 01/24/2025 [place] [address] Ultrasound Report Signed Patient: RENUKA PADRON MR#: [id number] : 1955 Acct:[id number] Age/Sex: 69 / F ADM Date: 01/24/25 Loc: US Attending Dr: Leah Barrera M.D. Ordering Physician: Leah Barrera M.D. Date of Service: 01/24/25 Procedure(s): US thyroid Accession Number(s): [id number] cc: PETER SOSA D.O.; Leah Barrera M.D. [address] [place] [id number] Patient Name: RENUKA PADRON MRN: [id number] date: 1955 Sex: F Assigned Patient Location: US Current Patient Location: US Accession/Order Number: [id number] Exam Date: 01/24/2025 12:07 Report Date: 01/24/2025 [...] Tate Jr., D.O.01/24/2025 12:12 PM Dictation Location: [place] [address] Electronically authenticated by: [id number] Y Date: 01/24/2025 12:12 Dictated By: Carlos Tate M.D. Signed By: 01/24/25 1215 DD/ 1212 TD/TT: Architectural Administrative Assistant: DEB SaldañaRadiology Study observation (narrative)DEB Lewis Thyroid glandOrdered By: Radiologist Radiology on 68-10-3798NPRHMercy Hospital Joplin Work Phone: ekg Rhythm Stripon 59-60-2011OCJHLSt. Mary's Medical CenterBasic Metab w/rfx MGon 37-42-8543Etvam gap [Moles/Vol]9 mmol/LNormal9-16Bon [facility] on above:Performed By: #### PARK JAIMES #### [facility] [address] [place] [address] Senior Officer: Anusha Lea, MDCalcium [Mass/Vol]8.7 mg/dLNormal8.6-10.4Bon [facility] on above:Performed By: #### PARK JAIMES #### [facility] [address] [place] [address] Senior Officer: WILLIAM Marthloride [Moles/Vol]109 mmol/GMvmf64-731Byc [facility] on above:Performed By: #### BMPX, CDP #### [address] [place], [place] 6[address]883 Senior Officer: Anusha Lea MDCO2 [Moles/Vol]23 mmol/FHkzmyd08-02Oki [facility] on above:Performed By: #### BMPX, CDP #### [address] [place], [place] [address]283 Senior Officer: WILLIAM Martreatinine [Mass/Vol]1.0 mg/dLHigh0.50-0.90Bon [facility] on above:Performed By: #### BMPX, CDP #### [address] [place], [place] [address]83 Senior Officer: Anusha Lea MDGlucose [Mass/Vol]166 mg/zCTrjk79-95Caj [facility] on above:Performed By: #### BMPX, CDP #### [address] [place], [place] [address]283 Senior Officer: SANDRA Martotassium [Moles/Vol]4.1 mmol/LNormal3.7-5.3Bon [facility]Mount [facility] on above:Performed By: #### BMPX, CDP #### [address] [place], [place] 2250283 Senior Officer: Anusha Lea MDSodium [Moles/Vol]141 mmol/MGvfwwf540-243Bzk [facility] on above:Performed By: #### BMPX, CDP #### [address] [place] [address] Senior Officer: Anusha Lea MDUrea nitrogen [Mass/Vol]19 mg/dLNormal8-23Bon [facility] HospitalComva medical center on above:Performed By: #### BMPX, CDP #### [facility] [address] [place], [place] 9[address]83 Senior Officer: Anusha Lea MDBUN/CRE Yrvvh77Xnuejj9-98Gkpmg [facility] Comment on above:Performed By: #### BMPX, CDP #### [facility] [address] [place], [place] [address] Senior Officer: Anusha Lea MDGFR/1.73 sq M.predicted among non-blacks MDRD (S/P/Bld) [Vol rate/Area]60 mL/min/{1.73_m2}Low>60[facility] on above:Result Comment: These results are [...] tubular secretion.Performed By: #### BMPX, CDP #### [address] [place] [address] Senior Officer: Anusha Lea MDBaking's daughters medical center Metabolic Panel w/ Reflex to MGon 01-05-2025 Est, Glom Filt Ogzg23Tqt- PINFBon [facility] on above: These results are not [...] tubular secretion. Interpretation and review of laboratory resultsAbnormBon Secours St. [facility] Urea nitrogen/Creatinine [Mass ratio]19 mg/mg9 - 20Bon SecMercy Health St. Joseph Warren HospitalBon [facility] Bucy[facility] HospitalCBC with Auto Differentialon 56-14-8432Pxhmsozgc (Bld) [#/Vol]0 10*3/uLBon [facility]cy[facility] HospitalBasophils/100 WBC (Bld)0 %0 - 2 %[facility] HospitalEosinophils (Bld) [#/Vol]0.04 10*3/uLBon SecMercy Health St. Joseph Warren HospitalEosinophils/100 WBC (Bld)1 %1 - 4 %[facility] HospitalErythrocyte distribution width (RBC) [Ratio]14 %11.8 - 14.4 %[facility] Hematocrit (Bld) [Volume fraction]35.2 %Low36.3 - 47.1 %[facility] Hemoglobin (Bld) [Mass/Vol]11.2 g/dLLow11.9 - 15.1 g/dLBon [facility] Immature granulocytes (Bld) [#/Vol]0 10*3/uLBon [facility] HospitalImmature granulocytes/100 WBC (Bld)0 %0[facility] HospitalInterpretation and review of laboratory resultsAbnormalWellmont [facility]. [facility] HospitalLymphocytes/100 WBC (Bld)10 %Low24 - 43 %[facility] HospitalLymphocytes/100 WBC (Bld)0.44 %LowJohn Randolph Medical CenterH (RBC) [Entitic mass]28.4 pg25.2 - 33.5 pgBon [facility] HospitalHC (RBC) [Mass/Vol]31.8 g/dL28.4 - 34.8 g/dLBon [facility] Memorial HospitalV (RBC) [Entitic vol]89.3 fL82.6 - 102.9 fLWellmont Lonesome Pine [facility] Hospital Monocytes/100 WBC (Bld)1 %Low3 - 12 %[facility] HospitalMonocytes/100 WBC (Bld)0.04 %LowWellmont Lonesome Pine Mt. View HospitalMorphology Jeff (Bld) [Interp]NormalBon [facility] HospitalNeutrophils/100 WBC (Bld)88 %High36 - 65 %[facility] HospitalNucleated RBC/100 WBC (Bld) [Ratio]0 %0.0 per 100 WBCWellmont Lonesome Pine Mt. View HospitalPlatelet mean volume (Bld) [Entitic vol]10.3 fL8.1 - 13.5 fLWellmont Lonesome Pine Mt. View HospitalPlatelets (Bld) [#/Vol]171 10*3/uLBon [facility] HospitalRBC (Bld) [#/Vol]3.94 10*6/uLLow3.95 - 5.11 m/uLWellmont Lonesome Pine Mt. View HospitalSegmented neutrophils/100 WBC (Bld)3.88 %[facility] HospitalWBC other (Bld) [#/Vol] 4.4Bon [facility] HospitalCBC with Diffon 01-05-2025 Abs. Basophil0.00 k/uLNormal0.0-0.2[facility] HospitalComment on above: Performed By: #### THEODORE, CDP #### [facility] [address] [place] [address] Dr. [place], [facility]83 Senior Officer: Marylou Mart.Imm.Granulocyte0.00 k/uLNormal0.00-0.30MerUniversity Hospitals Ahuja Medical Center HospitalComment on above:Performed By: #### BMPX, CDP #### [address] [place], [place] [address] Senior Officer: Marylou Mart.Neutrophil (Seg)3.88 k/uLNormal1.50-8.10MerUniversity Hospitals Ahuja Medical Center HospitalComment on above:Performed By: #### BMPX, CDP #### [address] [place], [place] 115[address]483 Senior Officer: Anusha Lea MDBasophils/100 WBC (Bld)0 %Normal0-2[facility]onville HospitalComment on above:Performed By: #### BMPX, CDP #### [address] [place] [address] Senior Officer: Anusha Lea MDEosinophils (Bld) [#/Vol]0.04 10*3/uLNormal 0.00-0.44[facility] HospitalComment on above:Performed By: #### BMPX, CDP #### [address] [place] [address] Senior Officer: Anusha Lea MDEosinophils/100 WBC (Bld)1 %Normal1-4[facility] HospitalComment on above:Performed By: #### BMPX, CDP #### [address] [place], [place] [address] Senior Officer: Anusha Lea MDImmature granulocytes/100 WBC (Bld)0 %Etddoi1Sfbkl [facility] HospitalComment on above:Performed By: #### BMPX, CDP #### [address] [place], [facility]83 Senior Officer: Anusha Lea MDLymphocytes (Bld) [#/Vol]0.44 10*3/uLLow1.10-3.70 [facility] HospitalComment on above:Performed By: #### BMPX, CDP #### [address] [place] [address] Senior Officer: Lynne Martmphocytes/100 WBC (Bld)10 %Xrb24-88NusazPike Community HospitalComment on above:Performed By: #### BMPX, CDP #### [address] [place] [address] Senior Officer: ANNIE Martonocytes (Bld) [#/Vol]0.04 10*3/uLLow0.10-1.20 [facility] Community HospitalComva medical center on above:Performed By: #### BMPX, CDP #### [address] [place], [place] [address]83 Senior Officer: ANNIE Martonocytes/100 WBC (Bld)1 %Low3-12[facility] Community HospitalComment on above:Performed By: #### BMPX, CDP #### [facility] [address] [place] [address] Dr[place], [place] 9[address]83 Senior Officer: ANNIE Martorphology Jeff (Bld) [Interp]NormalNormalMercy Health – [facility] Hospital HospitalComment on above:Performed By: #### BMPX, CDP #### [address] [place], [facility]83 Senior Officer: Anusha Lea MDNeutrophil (Seg)88 %Qvli50-66FxynoPike Community Hospital Comment on above:Performed By: #### BMPX, CDP #### [address] [place], [place] 8[address]83 Senior Officer: Anusha Lea MDErythrocyte distribution width (RBC) [Ratio]14.0 % Hcpyjo36.8-14.4[facility] HospitalComment on above:Performed By: #### BMPX, CDP #### [address] [place], [place] [address] Senior Officer: Anusha Lea MDHematocrit (Bld) [Volume fraction]35.2 %Low 36.3-47.1MClermont County Hospital HospitalComment on above:Performed By: #### BMPX, CDP #### [address] [place], [place] 28[address]383 Senior Officer: Anusha Lea MDHemoglobin (Bld) [Mass/Vol]11.2 g/dLLow11.9-15.1 [facility] HospitalComment on above:Performed By: #### BMPX, CDP #### [address] [place], [place] [address]83 Senior Officer: ANNIE MartCH (RBC) [Entitic mass]28.4 oySrjycq16.2-33.5 [facility] HospitalComment on above:Performed By: #### BMPX, CDP #### [address] [place], [place] 6127183 Senior Officer: CHANTE MartC (RBC) [Mass/Vol]31.8 g/nNXawbxg09.4-34.8[facility] HospitalComment on above:Performed By: #### BMPX, CDP #### [address] [place], [place] 69[address]183 Senior Officer: ANNIE MartCV (RBC) [Entitic vol]89.3 xPKyuwka67.6-102.9 [facility] HospitalComment on above:Performed By: #### BMPX, CDP #### [address] [place], [place] [address]83 Senior Officer: AJ Mart Automated0.0 per 100 WBCNormal0.0[facility] HospitalComment on above:Performed By: #### BMPX, CDP #### [address] [place], [place] 284[address]83 Senior Officer: Brad Mart mean volume (Bld) [Entitic vol]10.3 fL Normal8.1-13.5P[facility] Community HospitalComment on above:Performed By: #### BMPX, CDP #### [address] [place] [address] Senior Officer: Avis Mart (Bld) [#/Vol]171 10*3/mMDuwyrv961-184 [facility] HospitalComment on above:Performed By: #### BMPX, CDP #### [address] [place], [place] [address] Senior Officer: CONTRERAS MartBC (Bld) [#/Vol]3.94 10*6/uLLow3.95-5.11[facility] HospitalComment on above:Performed By: #### BMPX, CDP #### [facility] [address] [place], [place] [address] Senior Officer: RAMBO Mart (d) [#/Vol]4.4 10*3/uLNormal3.5-11.3[facility] Medical CenterComment on above:Performed By: #### BMPX, CDP #### [facility] [address] [place] [address] Senior Officer: Anusha Lea [facility] – TULSAardiac echo study ProcedureOrdered By: Nelia Carlos on 21-99-2396Roxrho Sinus Valsalva2.8 cme-Zassi Phone: Aortic Sinus Valsalva Index1.41 cm/m2Bon Demohour Phone: AV Cusp Mmode1.7 cme-[place]i Phone: AV Mean Ugbpntfa3agNdKcq Demohour Phone: AV Mean Velocity1 m/sBon Demohour Phone: AV Peak Uejbtknf7ykAaKyie-[place]assi Phone: AV Peak Velocity1.5 m/sBon Demohour Phone: AV Velocity Ratio0.87Bon Demohour Phone: AV VTI33.4 cmBon Demohour Phone: Body surface area Derived from formula2.08 m2Bon Demohour Phone: E/E' Jyhdtdu95.84Bon Demohour Phone: [phone] BP62 %55 - 100 %e-Zassi Phone: EF Crfndawck06 %e-Zassi Phone: Fractional Shortening 2D31 %28 - 44 %e-Zassi Phone: Interpretation and review of laboratory results AbnormalBon CuPcAkE & other things you bake Work Phone: IVSd1.1 cmAbnormal0.6 - 0.9 cmA[facility] CuPcAkE & other things you bake Work Phone: LA Area 2C16.9 cm2Bon CuPcAk[facility] & other things you bake Work Phone: LA Area 4C14.9 cm2[facility] Community HospitalRypple Work Phone: LA Major Axis4.9 [facility] ServicesRypple Work Phone: LA Minor Axis5 [facility] CuPcAkE & other things you bake Work Phone: LA Volume BP41 mL22 - 52 mLAbrazo Arrowhead Campus CuPcAkE & other things you bake Work Phone: LA Volume Index BP21 ml/m216 - 34 ml/m2[facility] other things you bake Work Phone: [phone] Volume Index MOD A2C24 ml/m216 - 34 ml/m2[facility]Ak[facility] & other things you bake Work Phone: [phone] Volume Index MOD A4C18 ml/m216 - 34 ml/m2[facility]Ak[facility] & other things you bake Work Phone: LA Volume MOD A2C47 mL22 - 52 mLAbrazo Arrowhead Campus CuPcAkE & other things you bake Work Phone: LA Volume MOD A4C35 mL22 - 52 [facility] CuPcAkE & other things you bake Work Phone: LV E' Lateral Velocity7.29 cm/sBon [facility] CenterRypple Work Phone: LV EDV A2C88 mLAbrazo Arrowhead Campus CuPcAkE & other things you bake Work Phone: LV EDV A4C73 mLAbrazo Arrowhead Campus CuPcAkE & other things you bake Work Phone: [phone] EDV Index A2C44 mL/m2[facility] & other things you bake Work Phone: LV EDV Index A4C37 mL/m2[facility]Ak[facility] & other things you bake Work Phone: [phone] Ejection Fraction A2C63 %[facility] [employer] other things you bake Work Phone: [phone] Ejection Fraction A4C55 %[facility] [employer] & other things you bake Work Phone: [phone] ESV A2C33 mLBon [employer] other things you bake Work Phone: [phone] ESV A4C33 mLBon [employer] other things you bake Work Phone: [phone] ESV Index A2C17 mL/m2Bon [employer] other things you bake Work Phone: LV ESV Index A4C17 mL/m2Bon [employer] other things you bake Work Phone: [phone] Mass 2D175 wThcmuqlx01 - 162 gBon [employer] other things you bake Work Phone: LV Mass 2D Index87.9 g/m243 - 95 g/m2Bon [employer] other things you bake Work Phone: LV RWT Ratio0.49Bon Demohour Phone: [phone] cm3.9 - 5.3 cmBon [employer] other things you bake Work Phone: LVIDd Index2.26 cm/m2Bon [employer] other things you bake Work Phone: [phone] cmBon [employer] other things you bake Work Phone: LVIDs Index1.56 cm/m2Bon [employer] other things you bake Work Phone: [phone] Mean Dozlenzd8lcTqJrb [employer] [employer] other things you bake Work Phone: LVOT Peak Axoiuczq0okQiItb [employer] & other things you bake Work Phone: LVOT Peak Velocity1.3 m/sBon [employer] other things you bake Work Phone: LVOT VTI29.4 cmBon [employer] other things you bake Work Phone: [phone]:AV VTI Index0.88Bon [employer] other things you bake Work Phone: [phone] cmAbnormal0.6 - 0.9 cmAbrazo Arrow[facility] Campus CuPcAkE & other things you bake Work Phone: MV A Velocity1 m/sBon [employer] other things you bake Work Phone: MV E Velocity0.79 m/sBon [employer] other things you bake Work Phone: MV E Wave Deceleration Srne764 msBon [employer] other things you bake Work Phone: [phone] E/A0.79Bon [employer] other things you bake Work Phone: PV Max Velocity0.9 m/sBon [employer] other things you bake Work Phone: PV Peak Nskbsmud6rvQuHyx [employer] other things you bake Work Phone: [phone] cm1.7 cmBon [employer] other things you bake Work Phone: Bon [employer] other things you bake Work Phone: Cardiac echo study Procedureon 59-30-0217Cmtm Ventricle: Normal left ventricular systolic function with [...] Details Image quality: adequate. No contrast was given.[facility] CV CPACSRadiology Study observation (narrative)[facility] CuPcAkE & other things you bakeEKG 12 LeadOrdered By: Bonnie Dawkins on 15-82-1621Xkysao Ubsl25UXNJia [employer] other things you bake Work Phone: P Nwsq01mqehzyrTcz [employer] other things you bake Work Phone: P-R Faxwblbc941 [facility] [employer] other things you bake Work Phone: Q-T Qywgsftf124 [facility] other things you bake Work Phone: QRS Negveulq444 [facility] [employer] other things you bake Work Phone: QTc Calculation (Bazett)440 [facility] [employer] & other things you bake Work Phone: R [place]-63degrSCI-[facility] CuPcAkE & other things you bake Work Phone: T Ktuy84wemjzmoHrv [employer]cAk[employer] & other things you bake Work Phone: Ventricular Zpnt96OZCCjf [employer] & other things you bake Work Phone: Bon [employer]cAk[employer] & other things you bake Work Phone: [phone] 12 Leadon 25-21-4204Szslh bradycardia Left axis deviation Non-specific intra-ventricular conduction block Cannot rule out Anterior infarct , age undetermined Abnormal ECG No previous ECGs available Confirmed by Bonnie Dawkins MD ([id number]) on 01/05/2025 10:57:39 [facility] Bonnie Dawkins MD - 01/05/2025 Sinus bradycardia Left axis deviation Non-specific intra-ventricular conduction block Cannot rule out Anterior infarct , age undetermined Abnormal ECG No previous ECGs available Confirmed by Bonnie Dawkins MD ([id number]) on 01/05/2025 10:57:39 AM [facility] HospitalEKG Rhythm Stripon 66-11-4600DKIBOBanner MD Anderson Cancer CenterFLUORO FOR SURGICAL PROCEDURESon 34-97-6730ZRPLVA FOR SURGICAL PROCEDURESRadiology exam is complete. No Radiologist dictation. Please follow up with ordering provider. Final resultNormalPike Community HospitalGlucose, Whole Bloodon 02-97-1212Ztvevsx [Mass/Vol]136 mg/zWQjbf68 - 100 mg/dLBon Secours Mercy HealthInterpretation and review of laboratory resultsAbnormalSentara Princess Anne HospitalGlucose [Mass/Vol]136 mg/bDOtyw57-276CxuriPike Community HospitalGuidance-- during surgeryon 51-62-5760Pqzlxnqcf exam is complete. No Radiologist dictation. Please follow up with ordering provider. MHPN RIS CONSOLIDATEDMicroscopic Urinalysison 36-77-0726Zddngshevn cells LM.HPF (Urine sed) [#/Area]0 TO 2Bon [facility]cy[facility] HospitalRBC LM.HPF (Urine sed) [#/Area][facility]JW Medical CenterWBC LM.HPF (Urine sed) [#/Area]Life[facility] HealthUA w/Reflex Cultureon 01-05-2025 Bilirubin, SemiQt,UrNegativeNormalNEGPike Community HospitalComment on above: Performed By: #### UAX UMSARAHO #### [facility] [address] [place] [address] Dr. [place] [address] Senior Officer: Delroy Mart, UrineNegativeCleveland Clinic [facility] Comment on above:Performed By: #### UAX UMICAO #### [address] [place] [address] Senior Officer: WILLIAM Martlarity ()ClearNormalCLEARPike Community Hospital Comment on above:Performed By: #### UAX, UMICAO #### [facility] [address] [place] [address] [place] [address] Senior Officer: WILLIAM Martolor (U)YellowNoalYBucyrus Community Hospital Comment on above:Performed By: #### UAX, UMICAO #### [facility] [address] [place] [address] [place] [address] Senior Officer: Nydia Mart Ql (U)NegativeNormalDoctors HospitalComment on above:Performed By: #### UAX, UMICAO #### [facility] [address] [place] [address] [place], [place] [id number] Senior Officer: Anusha Lea MDKetones Ql (U)NegativeNormalNEGMerJohnson Memorial HospitalComment on above:Performed By: #### UAX, UMICAO #### [facility] [address] [place] [address] [place] [address] Senior Officer: Anusha Lea MDLeukocyte esterase Test strip Ql (U)NegativeNormal NEGMercy Veterans Administration Medical CenterComment on above:Performed By: #### UAX, UMICAO #### [address] [place], [place] 4099783 Senior Officer: Anusha Lea MDNitrite,UrNegativeNormalNEGPike Community Hospital Comment on above:Performed By: #### UAX, UMICAO #### [facility] [address] [place] [address] [place], [place] 1805083 Senior Officer: SANDRA Mart,Ur7.4Ogewte4.0-9.0Pike Community HospitalComment on above:Performed By: #### MARVINX, UMICAO #### [facility] [address] [place] [address] [place] [address] Senior Officer: Kristina Mart Ql (U)NegativeNormalNEGPike Community HospitalComment on above:Performed By: #### UAX, UMICAO #### [facility] [address] [place] [address] [place], [place] 6457283 Senior Officer: ELSIE Martpec. Donie,Ur<1.937Ldx2.010-1.020Pike Community HospitalComment on above:Performed By: #### UAX, UMICAO #### [facility] [address] [place] [address] [place], [place] 4951383 Senior Officer: Amy Martbilinogen,UrNormalNormal0.0-1.0Pike Community HospitalComment on above:Performed By: #### UAXSHITALO #### [facility] [address] [place] [address] Senior Officer: Anusha Lea MDUrinalysis with Reflex to Cultureon 01-05-2025 Bilirubin Ql (U)NegativeNEGATIVEBon [facility] HealthClarity (U)ClearClearBon [facility] HealthColor (U)YellowYellowBon [facility] Bucy[facility] HospitalGlucose Test strip (U) [Mass/Vol]NegativeNEGATIVE mg/dLBon [facility] Bucyrus HospitalHemoglobin Auto test strip Ql (U)NegativeNEGATIVEBon [facility] HealthInterpretation and review of laboratory resultsAbnormalBon [facility] Bucyrus HospitalKetones (U) [Mass/Vol]NegativeNEGATIVE mg/dLBon [facility] Bucy[facility] HospitalLeukocyte esterase Test strip Ql (U)NegativeNEGATIVEBon [facility] Bucyrus HospitalNitrite Ql (U)Negative NEGATIVEBon [facility] HealthpH (U)7.5 [pH]5.0 - 9.0Bon [facility] Protein (U) [Mass/Vol]NegativeNEGATIVE mg/dLBon [facility] HealthSpecific gravity (U) [Rel density]Low1.010 - 1.020Bon [facility] Bucyrus HospitalUrobilinogen Qn (U)Normal0.0 - 1.0 EU/dLBon [facility] Urinalysis,Microon 57-04-2723Ndevecdmzo cells LM Ql (Urine sed)0 TO 0Haodbt2-04 P[facility] Community HospitalComment on above:Performed By: #### UAXSHITALO #### [facility] [address] [place] [address] Senior Officer: Selam Mart RBC'sNoneNormal0-2MCincinnati Children's [facility] Comment on above:Performed By: #### SHITAL DEMARCOO #### [facility] [address] [place] [address] Senior Officer: Selam Mart WBC'[address] Comment on above:Performed By: #### UAX, [facility] #### [facility] [address] [place], [place] 5183283 Senior Officer: CAMILLE MartR CHEST (2 VW)on 11-01-6994ZC CHEST (2 VW) EXAMINATION: TWO XRAY VIEWS [...] Signed by: Lucila Westfall MD 01/05/25 Final resultNoBlanchard Valley Health [facility] Chest 2 Viewson 71-85-1209Pv acute process. [facility] CONSOLIDATEDEXAMINATION: [...] without acute process. IMPRESSION: No acute process. [facility] HospitalRadiology Study observation (narrative)[facility] Chest 2 ViewsOrdered By: Lucila Westfall on 47-57-6567Knx [facility] Work Phone: Cult,Aerobe/Anaerobeon 84-70-0047Gqqc,Aerobe/Anaerobe Specimen Description .JOINT FLUID .KNEE LEFT 6.8mL Special Requests .JOINT FLUID .KNEE LEFT Direct Exam FEW NEUTROPHILS NO ORGANISMS SEEN Culture NO GROWTH 5 DAYS Report Status FINAL 11/19/2024NoPremier Health Miami Valley Hospital SouthComment on above: Performed By: #### AANC #### [facility] [address] [place] [address] Senior Officer: Rocco Salas MD [address] [place], [place] 7377483 Senior Officer: Romana Martals, Fluidson 66-05-8562Joewkgrp,Fluid NegativeNormalDoctors HospitalComment on above:Result Comment: NO CRYSTALS SEENPerformed By: #### FLCRYS #### [facility] [address] [place] [address] Senior Officer: Rocco Salas MD [address] [place] [id number] Senior Officer: Anusha Lea MD #### FLDCT #### [address] [place] 6[address]83 Senior Officer: Anusha Lea [facility]IAL HOSPITALathologist Review:ELECTRONICALLY SIGNED. DORIS ALDRICH M.D.Doctors HospitalComment on above:Performed By: #### FLCRYS #### [place] [address] [place] [address] Senior Officer: Rocco Salas MD [address] [place] [address] Senior Officer: Anusha Lea MD #### FLDCT #### [address] [place] 6790083 Senior Officer: WILLIAM Martell Count with Differential, Body Fluidon 65-82-1720Ypqimzhlbg (Body fld)SLIGHTLY CLOUDYBon Secours St. [facility] HealthBlasts/100 WBC (Body fld)0 %[facility] HealthCells Kqtwdni05Wzw [facility] Color (Body fld)YellowBon [facility] Bu[facility] HospitalEosinophils/100 WBC (Body fld)0 % Bon [facility] HospitalFluid Nom (Body fld).JOINT FLUIDBon [facility] Interpretation and review of laboratory resultsAbnormalBon [facility] Health Lymphocytes/100 WBC (Body fld)72 %Fuyk1Scy [facility] HospitalMonocytes/100 WBC (Body fld)0 %Bon [facility] HospitalNeutrophils/100 WBC (Body fld)28 %Omea5Pig [facility] HospitalRBC (Body fld) [#/Vol]8000 10*3/uLcells/uLBon [facility] HospitalUnidentified cells/100 WBC (Body fld)0 %Bon [facility]cyrus HospitalWBC (Body fld) [#/Vol]156 10*3/uLcells/uLBon [facility] Fluid Cell Count and Diffon 24-14-5770OnvqljoxcFrxanh2Qujvx[address] Comment on above:Performed By: #### FLCRYS #### [address] [address] Senior Officer: Rocco Salas MD [facility] [address] [place] [address] Dr. [place] [phone] Senior Officer: Anusha Lea MD #### FLDCT #### [address] [place] [address] Senior Officer: Anusha Lea MDHFTwlvjxisatfFsexpm3Zigcr62 Wood StreetComment on above:Performed By: #### FLCRYS #### [address] [address] Senior Officer: Rocco Salas MD [facility] [address] [place] [address] [place] [address] Senior Officer: Anusha Lea MD #### FLDCT #### [facility] [address] [place] [address] [place] [address] Senior Officer: Anusha Lea MDLymphocytes/100 WBC (Bld)72 %Vmjm4VvxyfPike Community HospitalComment on above:Performed By: #### FLCRYS #### [facility] [address] [place] [address] Senior Officer: Rocco Salas MD [address] [place] [address] Senior Officer: Anusha Lea MD #### FLDCT #### [address] [place] [address] Senior Officer: ANNIE Martono/SsmfknpwazBssuuo1Rkjvn Tiffin HospitalComment on above:Performed By: #### FLCRYS #### [facility] [address] [place] [address] Senior Officer: Rocco Salas MD [address] [place] [address] Senior Officer: Anusha Lea MD #### FLDCT #### [address] [place] [address] Senior Officer: Anusha Lea MDNeutrophils/100 WBC (Bld)28 %Mbca2OfogcPike Community HospitalComva medical center on above:Performed By: #### FLCRYS #### [address] [address] Senior Officer: Rocco Salas MD [address] [place] [address] Senior Officer: Anusha Lae MD #### FLDCT #### [address] [place] [address] Senior Officer: Anusha Lea MDOther HjgwfNtqtng4Dpwad91 Owen StreetComment on above:Performed By: #### FLCRYS #### [facility] [address] [place] [address] Senior Officer: Rocco Salas MD [facility] [address] [place] [address] [place] [address] Senior Officer: Anusha Lea MD #### FLDCT #### [address] [place] [address] Senior Officer: Charles Marttal Cells Jhgzdhq27NbaimuCthjq[address] [place] [address] Comment on above:Performed By: #### FLCRYS #### [facility] [address] [place] [address] Senior Officer: Rocco Salas MD [facility] [address] [place] [address] [place] [address] Senior Officer: Anusha Lea MD #### FLDCT #### [address] [place] [address] Senior Officer: Herrera Mart (U)Orthopaedic HospitalComment on above:Performed By: #### FLCRYS #### [facility] [address] [place] [address] Senior Officer: Rocco Salas MD [facility] [address] [place] [address] [place] [address] Senior Officer: Anusha Lea MD #### FLDCT #### [facility] [address] [place] [address] [place] [address] Senior Officer: Betsy Mart (U)Salem City HospitalComment on above:Performed By: #### FLCRYS #### [facility] [address] [place] [address] Senior Officer: Rocco Salas MD [facility] [address] [place] [address] [place] [address] Senior Officer: Anusha Lea MD #### FLDCT #### [facility] [address] [place] [address] [place] [address] Senior Officer: CLIFFORD Mart (Bld) [#/Vol]0.008 10*6/[facility] Health CenterComment on above:Performed By: #### FLCRYS #### [facility] [address] [place] [address] Senior Officer: Rocco Salas MD [address] [place] [address] Senior Officer: Anusha Lea MD #### FLDCT #### [address] [place] [address] Senior Officer: Anusha Lea [facility] (Bld) [#/Vol]0.156 10*3/[facility] Health CenterComment on above:Performed By: #### FLCRYS #### [facility] [address] [place] [address] Senior Officer: Rocco Salas MD [address] [place] [address] Senior Officer: Anusha Lea MD #### FLDCT #### [address] [place] [address] Senior Officer: Anusha Lea MDType of Specimen.Regional Rehabilitation HospitalComment on above:Performed By: #### FLCRYS #### [facility] [address] [place] [address] Senior Officer: Rocco Salas MD [facility] [address] [place] [address] [place] [address] Senior Officer: Anusha Lea MD #### FLDCT #### [address] [place] [address] Senior Officer: Anusha Lea MD07 Addendum Reporton Addendum Report [facility] [address] [place] [address]- Surgical Pathology Report Collected Date/Time: 06/01/2024 12:32 [...] examined esophagus. Empiric dilation with Delcid 54 Egyptian was done, no mucosal disruption was noted [...] is entirely submitted in one cassette. (DC) DC:[facility] Microscopic Description Microscopic examination performed unless gross only specified. The use of one or more reagents in the above tests is regulated as an analyte specific reagent (ASR). The test or tests are ordered following initial H&E microscopic examination. The performance characteristics were determined by the [facility] of [facility]. They have not been cleared or approved by the US Food and Drug Administration. The FDA has determined that such clearance or approval is not necessary. These tests are used for clinical purposes. They should not be regarded as investigational or for research. Appropriate positive and negative controls are performed and are acceptable. Memorial Health SystemComment on above:Performed By: #### [id number] #### [facility] [address] [place] [address]Qozbdlf Letter FTon 04-76-6571Qszjtde Letter FTPatient Letter FT June 06, 2024 RENUKA PADRON [address] [place] [phone] : 1955 Below is a summary of [...] if you wish to make an appointment. [facility] [phone] [facility] [phone] Reminders From: Lisa Cunningham I To: [facility] - Reminders/Recalls; Sent: 06/06/2024 10:26:14 EDT Show up: 03/19/2034 10:26:00 EDT Subject: Colonoscopy recall Reminder/Recall [address] Bejarano 06/01/2034NoK[facility] Springfieldurgical Pathology Reporton 06-03-2024 Surgical Pathology ReportFish - [address] [place] [address]- Surgical Pathology Report Collected Date/Time: 06/01/2024 12:32 [...] examined esophagus. Empiric dilation with Delcid 54 Egyptian was done, no mucosal disruption was noted [...] is entirely submitted in one cassette. (DC) DC:[facility] Microscopic Description Microscopic examination performed unless gross only specified. The use of one or more reagents in the above tests is regulated as an analyte specific reagent (ASR). The test or tests are ordered following initial H&E microscopic examination. The performance characteristics were determined by the [facility]. They have not been cleared or approved by the [place] Food and Drug Administration. The FDA has determined that such clearance or approval is not necessary. These tests are used for clinical purposes. They should not be regarded as investigational or for research. Appropriate positive and negative controls are performed and are acceptable. Memorial Health SystemComment on above:Performed By: #### [id number] #### [facility] [address] [place], [place] [address]Glzn OR Intraoperative Recordon [id number] OR Intraoperative RecordMain OR Intraoperative Record IntraOp Document Type FT Summary Primary Physician: Glen Bejarano MD Finalized Date/Time: 06/02/24 08:36:22 Pt. Name: RENUKA PADRON/Sex: 1955 Female Med Rec #: [id number] Physician: Glen Bejarano MD Financial #: [id number] Pt. Type: O Room/Bed: / Admit/Disch: 06/01/24 [...] RN, Margarette Blackwell Role Performed Anesthesiologist of Ore Dryer - Primary Scrub - Primary Record Time [...] additional precautions for proce (more content not included)...[facility] Health SystemDischarge Instructionson 04-54-9716Cnaicjvhf InstructionsDischarge Instructions RENUKA PADRON :1955 Visit Date:06/01/2024 [...] sulfate fluticasone nasal (fluticasone 0.05 mg/inh Nasal [place]) gabapentin (gabapentin 300 mg Cap) hydrOXYzine magnesium [...] Follow Up with Darci BRYANT, KLAUS Parsons, [facility] When: Comments: Call for any problems. Office to call for follow up appointment. Where: [address] [place] [address], [address] [phone] Medications What How Much When Instructions Next [...] fluticasone nasal (fluticasone 0.05 mg/ inh Nasal [place]) 2 Sprays Nasal Inhalation Every day Unchanged [...] this sheet in the (more content not included)...[facility]orial Health SystemComment on above:Result Comment: Electronically Signed By: Oliver REYNA, Sharon Goldman\.br\Date and Time Signed: 06/01/24 13:15 EDTInpatient Patient Summaryon [id number] Patient SummaryInpatient Patient Summary [place] [phone] [facility] Clinical Discharge Instructions PERSON INFORMATION Name: [...] day. fluticasone nasal (fluticasone 0.05 mg/inh Nasal [place]) 2 Sprays Nasal Inhalation every day. hydrOXYzine [...] MOUTH ONCE DAILY., Responsible Provider: PETER SOSA Comment:[facility] Health SystemMain OR PACU I Recordon [id number] OR PACU I RecordMain OR PACU I Record PACU Phase I Document Type FT Summary Primary Physician: Glen Bejarano MD Finalized Date/Time: 06/01/24 13:51:48 Pt. Name: NEREIDA RENUKACHAKA Dunn D.O.B./Sex: 1955 Female Med Rec #: [id number] Physician: Glen Bejarano MD Financial #: [id number] Pt. Type: O Room/Bed: / Admit/Disch: 06/01/24 [...] Signatures Signed By: Sharon Boyd RN 06/01/24 13:51NoTriHealth McCullough-Hyde Memorial HospitalMain OR Preoperative Recordon [id number] OR Preoperative RecordMain OR Preoperative Record Holding Area Document Type FT Summary Primary Physician: Glen Bejarano MD Finalized Date/Time: 06/01/24 11:20:31 Pt. Name: RENUKA PADRON/Sex: 1955 Female Med Rec #: [id number] Physician: Glen Bejarano MD Financial #: [id number] Pt. Type: O Room/Bed: / Admit/Disch: 06/01/24 [...] Signatures Signed By: Vitaliy Mcclure RN 06/01/24 11:20[facility] Health SystemOutpatient Surgery Discharge Instructionon 95-84-3216Efsiwbeloe Surgery Discharge InstructionOutpatient Surgery Discharge Instruction [place] [address] Patient Discharge Instructions PERSON INFORMATION Name: RENUKA [...] Information: You may receive a survey from [employer] asking you to rate your care experience. Your feedback is important and will help us understand what we do well and how we can improve the quality of care we provide to you, your loved ones and our community. It?s an honor to serve you. Thank you for choosing [facility] HERE ARE THE MEDICATION CHANGES THAT [...] day. fluticasone nasal (fluticasone 0.05 mg/inh Nasal [place]) 2 Sprays Nasal Inhalation every day. hydrOXYzine [...] PETER SOSA PATIENT EDUCATION INFORMATION Instructions: Medication Leaflets:Memorial Health SystemBacteria Spec Anaerobe Cult on 69-75-8812Aptqbvgk identified Anaer cx Nom (Unsp spec)Culture, Anaerobic Status = F No anaerobes grown after 4 days.NormalMsunt Schoolcraft [facility] Hospital on above: Performed By: #### 635-3 #### [facility] [address] [place], [place] [address]Aasisftl Spec BFld Culton 34-05-0077Ltfxgeds identified Sterile body fluid culture Nom (Unsp [...] been appended to a previously preliminary verified report.NormalMsunt Schoolcraft Memorial Hospital on above: Performed By: #### 636-1 #### [facility] [address] [place], [place] [address]Kykhfqwd identified Anaer cx Nom (Unsp spec)Ordered By: Kaur Pierre on 64-85-7897Gmcmhgro Spec Anaerobe CultCulture, Anaerobic Status = F [...] [facility]oAlliance of OhioCell count panel (Body fld)on 20-05-2564Stebs Basophils1.0 %[facility] on above:Order Comment: The reference range and other method performance specifications have not been established for this fluid specimen. The test result should be integrated into the clinical context for interpretation.Performed By: #### 74664-7 #### [facility] [address] [place] [address]Wnyht Nyottuxdoop11.0 %NormalMount Lewisville New AlbanyComment on above:Order Comment: The reference range and other method performance specifications have not been established for this fluid specimen. The test result should be integrated into the clinical context for interpretation. Performed By: #### 88241-8 #### [facility] [address] [place] [address]Nsazo Lymphocytes3.0 %NormalMount Lewisville New Albsandhills regional medical centerComment on above:Order Comment: The reference range and other method performance specifications have not been established for this fluid specimen. The test result should be integrated into the clinical context for interpretation. Performed By: #### 07157-3 #### [facility] [address] [place] [address]Xncvv Monocytes/Macrophages9.0 %NormalMount Formerly [facility] Ann[facility] HospitalComva medical center on above:Order Comment: The reference range and other method performance specifications have not been established for this fluid specimen. The test result should be integrated into the clinical context for int erpretation.Performed By: #### 46431-3 #### [facility] [address] [place] [address]Mzhtz Nhvuftgnvao12.0 %NormalMount Formerly [facility] Ann[facility] HospitalComva medical center on above:Order Comment: The reference range and other method performance specifications have not been established for this fluid specimen. The test result should be integrated into the clinical context for interpretation. Performed By: #### 39690-9 #### [facility] [address] [place] [address]Bqjc count panel (Body fld)Ordered By: Kaur Pierre on 91-41-7236Cxwo Cnt Pnl FldKneeOrthoAlliance of OhioCell Cnt Pnl FldCloudy OrthoAlliance of OhioCell Cnt Pnl FldRedOrthoAlliance of OhioCell Cnt Pnl Fld 899222 /ul8LgsoyNubwlwwt of OhioComment on above:The reference range and other method performance specifications have not been established for this fluid specimen. The test result should be integrated into the clinical context for interpretation.Cell Cnt Pnl Tiz986 /to7DlhaoUqgqzjmh of OhioComment on above:The reference range and other method performance specifications have not been established for this fluid specimen. The test result should be integrated into the clinical context for interpretation.Differential panel (Body fld)Ordered By: Kaur Pierre on 49-65-4425Rzwc Pnl Fld76.0 %OrthoAlliance of OhioDiff Pnl Fld 3.0 %OrthoAlliance of OhioDiff Pnl Fld9.0 %OrthoAlliance of OhioDiff Pnl Fld11.0 %OrthoAlliance of OhioDiff Pnl Fld1.0 %OrthoAlliance of OhioFungus Skin Culton 63-60-0866Gssbsu identified Cx Nom (Skin)Culture, Fungus Status = F No growth at 4 weeksNormalMount [facility]craft [facility] Hospital on above:Performed By: #### 575-1 #### [facility] [address] [place], [place] [address]Ftderd identified Cx Nom (Skin)Ordered By: Kaur Pierre on 34-39-1361Uluysn Skin CultCulture, Fungus Status = F No growth at 4 weeksOrthoAlliance of OhioMycobacterium Spec Ql Culton 05-25-2024 Mycobacterium sp Org specific cx Ql (Unsp spec)Culture AFB Status = F No growth at 8 weeks AFB Stain Status = F No acid fast bacilli seenNormalMount [facility]craft [facility] Hospital on above:Performed By: #### 25948-2 #### [facility] [address] [place], [place] [address]Vbzogadvvx Visit Summaryon 16-76-1041Xxoxmqomse Visit Summary RENUKA PADRON :1955 Visit Date:03/28/2024 [...] sulfate fluticasone nasal (fluticasone 0.05 mg/inh Nasal [place]) gabapentin (gabapentin 300 mg Cap) hydrOXYzine midodrine [...] fluticasone nasal (fluticasone 0.05 mg/ inh Nasal [place]) 2 Sprays Nasal Inhalation Every day Contact [...] or concerns Unchanged topiram (more content not included)...[facility] RENUKA PADRON :1955 Visit Date:03/28/2024 [...] sulfate fluticasone nasal (fluticasone 0.05 mg/inh Nasal [place]) gabapentin (gabapentin 300 mg Cap) hydrOXYzine midodrine [...] fluticasone nasal (fluticasone 0.05 mg/ inh Nasal [place]) 2 Sprays Nasal Inhalation Every day Contact [...] or concerns Unchanged topiram (more content not included)...[facility] SystemConsent for Procedure/Surgeryon 41-80-2616Dxtfedi for Procedure/Surgery [id number] HospitalGastroenterology Office/Clinic Noteon 82-84-4884Acudmjhgnjtvetri Office/Clinic NoteChief Complaint Dysphagia HPI Staff Patient [...] E&M of New Patient High 60-74 Min 69169 E&M of New Patient Moderate 45-59 Min 38179 EGD Endoscopy (Hospital Procedure) EGD Endoscopy (Hospital Procedure) 2. Dysphagia (R13.10: Dysphagia, unspecified) to solids, has to use water, occasionally (worst sandwich, meat..) no previous dilation EGD with dilation if fails--> manometry Ordered: Colonoscopy (Hospital Procedure) Colonoscopy (Hospital Procedure) E&M of New Patient High 60-74 Min 10063 E&M of New Patient Moderate 45-59 Min 24875 EGD Endoscopy (Hospital Procedure) EGD Endoscopy (Hospital Procedure) 3. History of gastric bypass (Z98.84: Bariatric surgery status) 1984 Ordered: Colonoscopy (Hospital Procedure) E&M of New Patient High 60-74 Min 51152 E&M of New Patient Moderate 45-59 Min 60951 EGD Endoscopy (Hospital Procedure) 4. Obesity (E66.9: Obesity, unspecified) Ordered: Colonoscopy (Hospital Procedure) E&M of New Patient High 60-74 Min 25211 E&M of New Patient Moderate 45-59 Min 83454 EGD Endoscopy (Hospital Procedure) 5. CHF (congestive heart failure) (I50.9: Heart failure, unspecified) Ordered: Colonoscopy (Hospital Procedure) E&M of New Patient High 60-74 Min 23831 E&M of New Patient Moderate 45-59 Min 08467 EGD Endoscopy (Hospital Procedure) 6. COPD type [...] tab, Oral, Daily fluticasone 0.05 mg/inh Nasal [place], 2 spray(s), Nasal, Daily gabapentin 300 mg [...] Patient was adopted Fami (more content not included)...[facility] SystemComment on above:Result Comment: Electronically Signed By: Darci BRYANT, Glen Ta\.br\Date and Time Signed: 03/28/24 10:48 EDTCT Neck WO contraston 85-52-4009[address] [address] [address] Scan Report Signed Patient: RENUKA PADRON MR#: [id number] : 1955 Acct:[id number] Age/Sex: 68 / F ADM Date: 02/12/24 Loc: CT Attending Dr: Leah Barrera M.D. Ordering Physician: Leah Barrera M.D. Date of Service: 02/12/24 Procedure(s): CT soft tissue neck wo con Accession Number(s): [id number] cc: PETER SOSA D.O. [place] [id number] Patient Name: RENUKA PADRON MRN: [id number] date: 1955 Sex: F Assigned Patient Location: CT Current Patient Location: CT Accession/Order Number: [id number] Exam Date: 02/12/2024 08:58 Report Date: 02/12/2024 [...] Signed By: 02/12/24 1445 DD/ 41 TD/TT: Architectural Administrative Assistant:TBHRadiology, Radiologist, MD - 02/12/2024 [place] [address] CT Scan Report Signed Patient: RENUKA PADRON MR#: [id number] : 1955 Acct:[id number] Age/Sex: 68 / F ADM Date: 02/12/24 Loc: CT Attending Dr: Leah Barrera M.D. Ordering Physician: Leah Barrera M.D. Date of Service: 02/12/24 Procedure(s): CT soft tissue neck wo con Accession Number(s): [id number] cc: PETER SOSA D.O. The [place] [id number] Patient Name: RENUKA PADRON MRN: [id number] date: 1955 Sex: F Assigned Patient Location: CT Current Patient Location: CT Accession/Order Number: [id number] Exam Date: 02/12/2024 08:58 Report Date: 02/12/2024 [...] Signed By: 02/12/24 144 DD/ 41 TD/TT: Architectural Administrative Assistant: DEB HealthcareRadiology Study observation (narrative)[facility] HealthcareCT Neck WO contrastOrdered By: Radiologist Radiology on 72-15-3932NLNO Healthcare Work Phone: US Thyroid glandon [phone] [address] Ultrasound Report Signed Patient: RENUKA PADRON MR#: [id number] : 1955 Acct:[id number] Age/Sex: 68 / F ADM Date: 01/27/24 Loc: US Attending Dr: Leah Barrera M.D. Ordering Physician: Leah Barrera M.D. Date of Service: 01/27/24 Procedure(s): US thyroid Accession Number(s): [id number] cc: PETER SOSA D.O.; Leah Barrera M.D. [place] [id number] Patient Name: RENUKA PADRON MRN: [id number] date: 1955 Sex: F Assigned Patient Location: US Current Patient Location: Accession/Order Number: [id number] Exam Date: 01/27/2024 11:00 Report Date: 01/27/2024 [...] IMPRESSION: Stable bilateral thyroid nodules TI-RADS: The [employer] TI-RADS committee's white paper recommendations for thyroid lesions classified as TR3 (mildly suspicious) are listed below: > 1.5 cm. Follow-up ultrasound in 1, 3, and 5 years. > 2.5 cm. FNA. J. Am Nick Radiol 2017;14:587-595. Electronically authenticated by: ANUSHA AGUERO Date: 01/27/2024 12:43 Dictated By: Anusha Aguero M.D. Signed By: 01/27/245 DD/ 42 TD/TT: Architectural Administrative Assistant:KESHIAHRadiologcori, Radiologist, - 01/27/2024 The [place] [id number] Ultrasound Report Signed Patient: RENUKA PADRON MR#: [id number] : 1955 Acct:[id number] Age/Sex: 68 / F ADM Date: 01/27/24 Loc: US Attending Dr: Leah Barrera M.D. Ordering Physician: Leah Barrera M.D. Date of Service: 01/27/24 Procedure(s): US thyroid Accession Number(s): [id number] cc: PETER SOSA D.O.; Leah Barrera M.D. [place] [id number] Patient Name: RENUKA PADRON MRN: [id number] date: 1955 Sex: F Assigned Patient Location: US Current Patient Location: US Accession/Order Number: [id number] Exam Date: 01/27/2024 11:00 Report Date: 01/27/2024 [...] IMPRESSION: Stable bilateral thyroid nodules TI-RADS: The [employer] TI-RADS committee's white paper recommendations for thyroid lesions classified as TR3 (mildly suspicious) are listed below: > 1.5 cm. Follow-up ultrasound in 1, 3, and 5 years. > 2.5 cm. FNA. J. Am Ncik Radiol 2017;14:587-595. Electronically authenticated by: ANUSHA AGUERO Date: 01/27/2024 12:43 Dictated By: Anusha Aguero M.D. Signed By: 01/27/24 1245 DD/ 1243 TD/TT: Architectural Administrative Assistant: DEB HealthcareRadiology Study observation (narrative)SOURAVSid SaldañaUS Thyroid glandOrdered By: Radiologist Radiology on 60-07-5014FPTW Healthcare Work Phone: ecg 12 leadon 03-25-2023 Wave Vruw04sjlaafuWaignhy HealthP-R Diyovloo816 VA hospitalPathologist interpretation (Bld) [Interp] Normal sinus rhythm Left bundle branch block Abnormal ECG Confirmed by Evelyn Jose MD ([id number]) on 03/25/2023 1:21:08 PM [facility] HospitalQ-T Padjadin045 [facility] hospitalQRS Iyaealvw804 [facility] OUv988 VA hospitalR [place]-19degreesSouthwood Psychiatric HospitalTroponin T.cardiac [Mass/Vol]83 ug/LdegreesTrinCorewell Health Greenville Hospital HealthLaboratory - Coagulationon 24-15-4447LAV Coag (Bld)74 sBPMTKindred Hospital Philadelphia - HavertownVidirsSZDC-SxA-0 (COVID-19) RNA TORRES+probe Ql (Resp)on 26-27-1884Tiigjrwhewoyab and review of laboratory resultsNormal [facility] HospitalInkpcpUXIX-WoX-2 (COVID-19) RdRp gene TORRES+probe Ql (Resp)Not detectedNot DetectedTrinCorewell Health Greenville Hospital HealthBacteria identified Anaer cx Nom (Unsp spec)Ordered By: Deep Sagastume on 70-29-9615Pdsfrxu HealthBacteria identified Anaer cx Nom (Unsp spec)on 37-74-8561Irvxanx HealthCulture anaerobicOrdered By: Deep Sagastume on 61-10-8436Xmrwlznz identified Anaer cx Nom (Unsp spec)No anaerobes grown after 4 days.[facility] Hospitaloratory - Microbiology and Antimicrobial susceptibilityon 14-86-6640Qpulhuju identified Anaer cx Nom (Unsp spec)No anaerobes grown after 4 days.[facility] HealthBacteria identified Cx Nom (Tiss)on 98-23-6836Njvtfxxmwch observation Gram stain Nom (Unsp spec)No Polymorphonuclear leukocytesTrinprotestant deaconess hospital HealthComment on above:This is an appended [...] Nom (Unsp spec)Ordered By: Aggie Aiken on 81-52-6882Hbsirqpj identified Cx Nom (Body fld)Rare Pasteurella multocidaAbnormalTrinity [...] preliminary verified report.Culture tissue with gram stainon 37-49-2717Wlyxpaks identified Cx Nom (Tiss)No growth at 3 [...] and Antimicrobial susceptibilityOrdered By: Aggie Aiken on 96-10-2086Ejuldrllyua observation Gram stain Nom (Unsp spec)No Epithelial cellsTrinity HealthComment on above:This is an appended report. These results have been appended to a previously preliminary verified report. Microscopic observation Gram stain Nom (Unsp spec)No organisms seenTrinity HealthComment on above:This is an appended report. These results have been appended to a previously preliminary verified report.No Panel InformationOrdered By: Aggie Aiken on 97-34-8383Jbfeiahtcxrteg and review of laboratory results AbnormalTrinity HealthTrinity HealthBasic metabolic 2000 panelon 14-87-1825Xappt gap [Moles/Vol]8 mmol/L6 - 18Trinity HealthCalcium [Mass/Vol]9.1 [...] adjustment for race.Glucose [Mass/Vol]95 mg/dL70 - 99 mg/dLTrinprotestant deaconess hospital Health Interpretation and review of laboratory resultsAbnormalTrinity HealthPotassium [Moles/Vol]4.6 mmol/L3.6 - 5.1 mmol/LTrinity HealthSodium [Moles/Vol]137 mmol/L 136 - 145 mmol/LTrinity HealthUrea nitrogen [Mass/Vol]22 mg/dLHigh8 - 20 mg/dL Renate HealthUrea nitrogen/Creatinine [Mass ratio]23.9 mg/zoTvtj59.0 - 20.0 Rentae HealthTrinity HealthGlucose Auto test strip (Bld) [Mass/Vol]on 64-20-2692Bmjqjub [Mass/Vol]112 mg/eHQtqf00 - 99 mg/dLTrinprotestant deaconess hospital Health Interpretation and review of laboratory resultsAbnormalTrinity HealthTrinity HealthGlucose [Mass/Vol]124 mg/pSBgqm89 - 99 mg/dLTrinity HealthInterpretation and review of laboratory resultsAbnormalTrinity HealthTrinity HealthGlucose [Mass/Vol]85 mg/dL70 - 99 mg/dLTrinity HealthInterpretation and review of laboratory resultsNormalTrinity HealthTrinity HealthHemogram and platelets WO differential panel (Bld)on 95-51-9496Mjpitexhc (Bld) [#/Vol]0.04 10*3/uLTrinity HealthBasophils/100 WBC (Bld)0.4 %0.0 - 2.0 %[facility] HealthEosinophils (Bld) [#/Vol]0.08 10*3/uLTrinity HealthEosinophils/100 WBC (Bld)0.7 %0.0 - 7.0 % Ren[facility] HealthErythrocyte distribution width (RBC) [Ratio]13.6 %11.0 - 14.8 % [facility] HealthHematocrit (Bld) [Volume fraction]36.0 %34.3 - 47.9 %[facility] HealthHemoglobin (Bld) [Mass/Vol]11.6 g/dLLow12.0 - 16.0 g/dLTrinity Health Immature granulocytes (Bld) [#/Vol]0.07 10*3/uLTrWarren General HospitalImmature granulocytes/100 WBC (Bld)0.7 %0.0 - 1.2 %[facility] HospitalInterpretation and review of laboratory resultsAbnormalTrinprotestant deaconess hospital HealthLymphocytes (Bld) [#/Vol]1.70 10*3/uLTrWarren General HospitalLymphocytes/100 WBC (Bld)15.8 %Low17.9 - 49.6 %[facility] SystemH (RBC) [Entitic mass]28.4 pgTrinButler Memorial HospitalHC (RBC) [Mass/Vol]32.2 g/dL30.8 - 35.3 g/dLTrinButler Memorial HospitalV (RBC) [Entitic vol]88.0 fLTKindred Hospital Philadelphia - Havertown Monocytes (Bld) [#/Vol]1.02 10*3/uLHighTrinprotestant deaconess hospital HealthMonocytes/100 WBC (Bld)9.5 %0.0 - 12.0 %RenateCurahealth Heritage ValleyNeutrophils (Bld) [#/Vol]7.84 10*3/uLHighTrinprotestant deaconess hospital HealthNeutrophils/100 WBC (Bld)72.9 %38.1 - 75.5 %[facility] HospitalPlatelet mean volume (Bld) [Entitic vol]10.4 fLTrinprotestant deaconess hospital HealthPlatelets (Bld) [#/Vol]300 10*3/uLTrinity HealthRBC (Bld) [#/Vol]4.09 10*6/uLTrregional hospital of scranton HealthWBC (Bld) [#/Vol]10.8 10*3/uLHighTrinity Haven Behavioral HealthcareBasic metabolic 2000 panelon 24-67-3142Meltv gap [Moles/Vol]11 mmol/L6 - 18TrinCurahealth Heritage ValleyCalcium [Mass/Vol] 9.0 mg/dL8.9 - 10.3 mg/dLTrinprotestant deaconess hospital HealthChloride [Moles/Vol]104 mmol/L98 - 107 mmol/LTrinity HealthCO2 [Moles/Vol]23 mmol/L22 - 32 mmol/LTrregional hospital of scranton Health Creatinine [Mass/Vol]1.03 mg/dL0.60 - 1.30 mg/dLTrinprotestant deaconess hospital HealthGFR/1.73 sq M.predicted among non-blacks MDRD (S/P/Bld) [Vol rate/Area]60 mL/min/{1.73_m2}- PINFTrinity HealthComment on above:Effective July 27, 2022, calculation based on the Chronic Kidney Disease Epidemiology Collaboration (CKD-EPI) equation refit without adjustment for race.Glucose [Mass/Vol]106 mg/oEKixt20 - 99 mg/dL Ren[facility] HealthInterpretation and review of laboratory resultsAbnormalTrinity HealthPotassium [Moles/Vol]4.9 mmol/L3.6 - 5.1 mmol/LTrinity HealthSodium [Moles/Vol]138 mmol/L136 - 145 mmol/LTrinity HealthUrea nitrogen [Mass/Vol]31 mg/dLHigh8 - 20 mg/dLTrinity HealthUrea nitrogen/Creatinine [Mass ratio]30.1 mg/lqPnys23.0 - 20.0Trinity HealthTrinity HealthGlucose Auto test strip (Bld) [Mass/Vol]on 07-52-8414Zkvngyz [Mass/Vol]109 mg/uMLhwx79 - 99 mg/dLTrinity HealthInterpretation and review of laboratory resultsAbnormalGreenwald Health Renate HealthGlucose [Mass/Vol]89 mg/dL70 - 99 mg/dLTrinity Health Interpretation and review of laboratory resultsNormalTrinity HealthTrinity HealthGlucose [Mass/Vol]106 mg/rPLroe35 - 99 mg/dLTrinity HealthInterpretation and review of laboratory resultsAbnormalTrinity HealthTrinity HealthGlucose [Mass/Vol]116 mg/tVOral68 - 99 mg/dLTrinity HealthInterpretation and review of laboratory resultsAbnormalTrinity HealthTrinity HealthHemogram and platelets WO differential panel (Bld)on 63-08-1673Zpcwzrgyl (Bld) [#/Vol]0.02 10*3/uLTrinity HealthBasophils/100 WBC (Bld)0.2 %0.0 - 2.0 %[facility] HealthEosinophils (Bld) [#/Vol]0.00 10*3/uLTrinity HealthEosinophils/100 WBC (Bld)0.0 %0.0 - 7.0 % Ren[facility] HealthErythrocyte distribution width (RBC) [Ratio]13.9 %11.0 - 14.8 % [facility] HealthHematocrit (Bld) [Volume fraction]38.9 %34.3 - 47.9 %RenateCurahealth Heritage ValleyHemoglobin (Bld) [Mass/Vol]12.2 g/dL12.0 - 16.0 g/dLTrinCurahealth Heritage ValleyImmature granulocytes (Bld) [#/Vol]0.08 10*3/uLTrWarren General HospitalImmature granulocytes/100 WBC (Bld)0.7 %0.0 - 1.2 %[facility] HealthInterpretation and review of laboratory resultsAbnormalTrinprotestant deaconess hospital HealthLymphocytes (Bld) [#/Vol]1.07 10*3/uLTrregional hospital of scranton Health Lymphocytes/100 WBC (Bld)9.3 %Low17.9 - 49.6 %[facility] HospitalMCH (RBC) [Entitic mass]28.2 pgTrinCurahealth Heritage ValleyMCHC (RBC) [Mass/Vol]31.4 g/dL30.8 - 35.3 g/dLSouthwood Psychiatric HospitalMCV (RBC) [Entitic vol]89.8 fLTrinprotestant deaconess hospital HealthMonocytes (Bld) [#/Vol]0.61 10*3/uLTrregional hospital of scranton HealthMonocytes/100 WBC (Bld)5.3 %0.0 - 12.0 %[facility] Neutrophils (Bld) [#/Vol]9.71 10*3/uLHighTrinprotestant deaconess hospital HealthNeutrophils/100 WBC (Bld) 84.5 %High38.1 - 75.5 %RenateCurahealth Heritage ValleyPlatelet mean volume (Bld) [Entitic vol] 11.2 fLTrinprotestant deaconess hospital HealthPlatelets (Bld) [#/Vol]270 10*3/uLTrregional hospital of scranton HealthRBC (Bld) [#/Vol]4.33 10*6/uLTrregional hospital of scranton HealthWBC (Bld) [#/Vol]11.5 10*3/uLHealthsouth Rehabilitation HospitalTrinLifecare Hospital of MechanicsburgPathology studyOrdered By: Anusha Dietrich on 73-19-3683Ltxcxhhz Jeff (Reference lab test) w4rugTKiRSEyy1bcQYLssAKsYcYrIcXcZlJqBvghhUAvBFvyfeFkQPngz9ExH1WfQrSbSWtqieBmUTQt VvcddvrtYUEuIZT3alOh POMzJQdeKNZxAYclHk2kmFZeaKuvCmGnTYExj9oxptACCFxnKOPNQVn1i0ziNYGsHhD9pAMrKHrzJ6lt xpZsiECnG6Jku3XgOVp3 xD89YDVpwX3nwYUeJDmbtuQoGcD7CComZYMnHfA1ZZFbkJYtPHOiO6ufEEYkGBxdbfQfhrN9UKHyrDWg MTX0OASzDUDjQ4ErGP6w YTUloPIdZCt0o8abxYvyHGPeSRX9z8ifLSjbjtBxHU2pvs5ksJf7y2dracCxDTWdGJGpkQFFTDXnS9Qs cKpsOc6peSl8fZdzJsfp LZE6Xkt4BT1esl92aiw1zLcrGIGmsfnnErI8GKtcEDOcwayrVXf6CRjaZWZoaKJ1PMQnyWXuP2DdWAGd NU9bgcy8QPK7AVwhGCTx AhP2ADAroUEmJMLpiHsuZFunu707FJZ3KcVuKB8nD2Rgg6N6nB2deUBqYEUvqGVxXrAaQTWwfd3kaHXk FDjlu5XvCEG8ctE1uUYd dFNuMSWpGA73Jlljt4EvEencSZD4VCRuegMzp4Nsh5fzGoZynaOvL9jvW3YwECZdZQUvTTVuTmKwjqHk s1Txq1ZxqSDvgWd5z2pk JUInBHTioBxka4hfBTN8TAFvO4N8sLGeh8ztQBvcTHUrqFH1qtU6HWMkoXHuX0WauF9sFCTgYL9mmls4 o1eeILQ0HDdhQLLcYmF9 qpL9KZPxaDWrRHNtePndDUpya700EWA1HiUrHQJcl0WhM9MvoGioU62btGpvF85hRPPdrPnynH6miTlo tO6oTbFzOrBzRSarlKca mFKgxpytGKvogwA3FKjxssmpCPJrSQxqD5pdJjNkFIXxsLzlUMjis0FbXZZuQGSjFlqhzrH7ABxfWJ67 XObnmPEck7npz0TrE0xu lVqsgLO7FV8pGQXdQHUqQJdkp3MxjR1dgFVbBFDgccM2aDXuuQ11OSTuxjA9ZPZnv01ps3OvzEflpjUt BMChYGnyiqOfHZSlp9Sg FKNfQKYlWY01igLlO1SioIUzODElrrQuPAnvhW5eg2u3XOkrOn6aMHpya0CqrBGmtKBueWN1FFRhw6Yz NgPhrsRpuIEmouHiBE3u EPKmxYSvhpCzVBZ0IZRxWORVFwDgJFKtn9NfEI7jXVFdwCwxSOIwwK7ul7SsSUXls29bCITnMVPXHHTa aGFzIGRldGVybWluZWQg vQnyhPWmhFPnHGAkASHoST7jBGTxdlLczVOnv3AzxVPxspGhy3NohwVeIMVkIML3MsZKbGGpAHF2NKJ8 kiAhqbQybMHyKDRjp0Dl D3yswjgkNUhgsZStjU8hGQEjQQ7mRRStn7SbXPCpg4VnHwXtenGzXCBnFISjTLBgpG79CQA2pUdvcLvj jiYzJE5cPWIdqfSsXWCe FHUykN0eXKpkdcCjUQCqkfR2h6Z5JKabRUNeteHxPqiiALS6kxEgOMOnp2JxTSpzL1wdV80isMvocFz0 lHQ6CEY3fY5bUGSzVAEk DCPfSFSJzHadxKNsvFLHVSDrunK1s1O0EDsqzEEthqPmPM54CNJeXR3ekIZicRQzr0HfVFb1WR7mUJct LYAwoxDnw2esRHGno6ky UYNzpy3viwfjeCArvfSsP0Ranky0rX4caVWpLNCfdn89WFU9FaLjLE3dbPxzOPVdTD7aAPTfL8aoxV2p nke1XaJbq8psbKWjPCAj qBPxDtFaCFLaCGLst6hiFJUqzVWgOdUfInGdJlZvIzvzcBBzTGZgDxHkj0wmj400dVRbz0nfIPGiWhV4 kJXdXVQdX53fHMTUZ827 IHUkNQqvk5ayi0JcTHNyrWDsc5X6RPIRALvmAJDJVCm1nYqaC52ks8N5JilzX2hhBOFtOKGxP6AaXZ3k FTHyRrk5ZVH4NSE5WZXs LSK9HRtpHTBkRNRgSku3EQQ7UBwpskIwNWPfEQjpMXGuHADbWUPmtXOsJMTfW6ixJBEcBQylYGWkHSgm sXGmSNN4fKafa9B2bZEb yDVckBlnErUjTiWbSfGJz1VvTLc5iMgnU1FkUPPqQjG9oQMkVFKpPNgzXTGqVJClhvW6fV40WWjtqxQ1 eJJmm8Vzd28he236dB2f wIZhVCE3TQDzBGRspYSsOTAjOWS6AKLrmBEtC9slVSKqSL9mkhzuMJwwFLabQJAmmZW0WETzcEPlU9Bz FJVvERfdZUGlkhz5RbQl Qm4mnFRwzXukGPmpv1mkf6yekWPdGcr8XDHbJuYzMpdqLPsun0Zrs6nlOLYueq9tISG9lJQtdMvls5C3 bGUxXGRudGJsbnNiZGJc AmG0QJtfHG4kev24RHStIVW7ia7lyRQkpWbpmhNigLOhRKqhG7KrAAPcc638MLYyW2VeILSnb0B1nqMv LnImWRMxcOS3mjM7BZKn EMv2rEXsklA2xzZunZQyV3xnmP0nNQLpPF3uuzjrj7noDIkfQVwpGNEjjQU4ziO7EUZjwOVrD0YapG5y CADpYXahOWHosvv2ZtAd Ge4szYOtrVsvXUiiQpvqXIfjWWEdgfKszjDbmDdzQKVcFPCfDKffFQUpOCarVXRbJMYjAyZpaBkrsQbz gS8jNwFcScZqTSifYE4l ZZOoH7puuMHmFBWeRQWjY9hnKkXxtA8pgZfnASflXcYbLwHuMVgeQZEyRVQ4IQHmzoxmYJdlB74pmQ9q RB31DDtltpMiJHPbm9Fw BHEtRWCdJRebRUBpjbZnIBkgmH7sh6h4MKysOg8vSQAkhdixSEN6RdBaIP02CtlnzQQfYMCKimQtGTKl bHVtYnVzLCBPaGlvIDQz CzT9NoBTxCRtr3Hgs6CkQhFkiVZttW9boAiexsP3GVCfeRWbUk5ynTIjIbgawDSdbcoyEIdpglP8EHnu gqpqSOEjMGsrQ3usThDgFDMtsXouVQlet2EiIYHwPJOcU5ygpoR8QZukhOKzEFEbcc24wC==Ywtpzkp Health Work Phone: Microscopic description Jeff (Endomyocardium) h6xauXBvKAJgdCTRVPQvOXArJK2kuWptdVv8dXwtAGTqdpC4lDZhXQpwl2ycAVY3v5gkcnWEUwxuJVFd DU4xHEatEOVkBC2yHcJh TNLoBtHiWKEkaQVepaUiCiPiWEDneDMxrBY2KVAbON1hkvioRTybICedISSweoW3YLQwsGInA3AbJSEq VY7ewqawLMR0ZZWGQoye Gb8nwEKsaOQHJlmvYvTfUdDlDXTbZIOqONVcqFhiIGWiFTw7cN4Jm5mqHwfoZ1fdaxYasCGqWb4teJJT ZCoqRVCCEUv0aC7KGWZo V5IiPM6If2hiWNFrqJMhURU1INvmw1rwENdiFND1QHKkVDFuWMWiDC1SGkZxBNRlQZTvEJyeBwY9NRg1 SJHWRJDoMXK6JqUpDwN8 CIh9KOVhFJ5kAMlvgKJaUVwdJczuEGhiQ565DVpdYLMmD8CmR5StVEppGhZoEHpkPXCxZQHwRMnwEOVy G4FZAABvCcTtZfQ5WNSc PUs0PWf2GE0PApMbDBNdAgF6ThC0ZNXsOYk2SXjdVT4DLMNsBLM2HxcjYSUcJBL8VHRjNOn6FHByYUng huPzAHzlYlggRZpvO49a wUGwULMIScupvVAyvzulDZrwixMfNUPzQNhvPPTeOOmoQjQiEPvaUVMiOPeihJXkPU4ZLOKwalKxTElc aFbicR2pWlHvNzWsFRbe oVHrttjdePQltOsbmpEhIDEezVRIPOM7RM7nBPXBQhjueGGkHOGjoYrwLApaiU9vLWNxNjDnMJLnS2xy DAKpBA9LPQAkTXFwCwJt RsNvMHa7SVEdoA8yPf0nbBWymL1fiGDfJZhtQHQ2eIDfSJKpSVQcSFUyCZ12J9FjkuEeIAuuSG0cVMMu ORd3lQ8eXQnmbJLzVNDv uFVxQNJcRUX7AYrxROOlFBrpEIEbiY5jbUkwerWxEaMqivQrG2DbFLYocHSnNYxabCmtzrQ2qsF0ED9q W2DvdOVuuFTnh19jwJHt XC6pzBXfyCyxs1EhAFjarXrejDEzXGJuvUjxKHExXFFydqydegVnhWjmkkYhBchxbAEaEbZrkUJyLfRo C92pKBRQUEH3uJ5ilK5y YAAcdnYaoUGuCTR1GO3voKLwpY78CSShNNLrbx1zwaK2LMMpbOZhb5PbAIS2qWLdnVBvSUVnWXbwiIkn th3ta4Y7dL05bvCfhOKq lFGbu7SsHMBuRBAvIXrlPB59iJVyIPJbPXOXMDBvCQAdreSonCa7TAOfTNQ7hC8vvhCjfaFzi1TioAb7 eQEhYVspMXTnc4ztC5pu YOAoh8BtwGRmUuXfXZyBSXnWAfnqtAlgYtAimZSsSuU1RBUuiFWyDLW9AI6ugXpsXCGfA4ZxH6JcbkD2 TZAyedMLAbgwXIUjQU0MNPVoGONdXgQjYNz4Tnnvppn Health Work Phone: Pathology report final diagnosis Narrative w0renEFlJAVmtNEaTIHcAnzhohNgSRNbzWKrB6PiqhvlCWheZQ3sMF6qrNlktCDkqMFqAOWlGdYza0og j658sFNrb1jkUWYLgduv mPv9tRttZ28mk7J3EmynP3teLMKpVJznSOBjSNbrwSTqLXv8WDHcfWAlntYbWzSqJVCfrNWuhBG3RJEf XW0zfjtjSLybGQajKTYo qeW3WIFdlSSdN8YiNPEqTX4dsgcoISP8IWzqGHAjUVB7LwWoHKBrr9Ukjqh4MlNjzOi3e6ulWJSuTFFp cLkcq5mtSGZ0GYUfcIBp U4ebgR3vADBgWN7gxlnrg0cfFNizYTsuOLPicLS6vdA8SDTsrPCoL9AodD3eIURxLTXzedIabBvpjZ3p Z1YqMTQLVRK2PRidIUQf CRZay6DevIejmNMcAXD2yo73hVKbPUawxAvwhBQtf2IoLGPuuXYiEWkcToytzY3fsYguyk5KWK5lQOxp TBR0BHDusYenmzU3FJRy lxJuaHxeSDDxm8UuHWClAEngStdjJQTdQb4hxYXamEMpm9W1tJTnIRj0nZLup1Z7wMouXKdfIucvaD2s sBcbwyDodaGlsfYwGH30VrztCMN7[facility] Work Phone: [employer] Phone: XR Knee 1-2 Views Lefton [id number] post left total knee arthroplasty. -------- FINAL [...] By: Self Edit Transcribed Date: 03/20/2023 07:17 Be HereXR Knee 1-2 Views LeftOrdered By: Ania Dumont on 03-20-2023 Be Here Work Phone: basic metabolic 2000 panelon 14-10-4433Bsnzi gap [Moles/Vol]9 mmol/L6 - 18Tr[facility] HealthCalcium [Mass/Vol]10.2 [...] - 20 mg/dLTrinity HealthUrea nitrogen/Creatinine [Mass ratio]32.7 mg/teWuwx19.0 - 20.0Trinity HealthTrinity HealthCell count panel (Body fld)Ordered By: Deidra Stallings on 51-74-3619Ounguqo (Body fld)CloudyTrinity HealthColor (Body fld)OrangeTrinity HealthRBC Auto (Body fld) [#/Vol][id number] /xf2Jczgezv HealthComment on above:The reference range and other method performance specifications have not been established for this fluid specimen. The test result should be integrated into the clinical context for interpretation.Specimen source Nom (Body fld)KneeTrinity HealthWBC (Body fld) [#/Vol][id number] /cj2Byiusgh HealthComment on above:The reference range and other method performance specifications have not been established for this fluid specimen. The test result should be integrated into the clinical context for interpretation.Called to Galilea MCGOVERN 1422 03/19/23 GKBTrinprotestant deacon[facility] HealthTrinity Health Differential panel (Body fld)on 28-17-4993Ahplowiouyz/100 WBC Manual cnt (Body fld)[facility] HealthMonocytes+Macrophages/100 WBC (Body fld)4.0 %[facility] Neutrophils/100 WBC (Body fld)96.0 %[facility] HealthTrinity HealthGlucose Auto test strip (Bld) [Mass/Vol]on 27-13-0826Nugvnwo [Mass/Vol]131 mg/jIOhap48 - 99 mg/dLTrinity HealthInterpretation and review of laboratory resultsAbnormal [facility] HealthTrinity HealthGlucose [Mass/Vol]124 mg/lMVixy66 - 99 mg/dLTrinity HealthInterpretation and review of laboratory resultsAbnormalTrinity Health [facility] EswgdwYpP5w HPLC (Bld) [Mass fraction]on 67-46-1905Ggzmssa [Mass/Vol]117 mg/dLTrinity PhqrfjVcS0r (Bld) [Mass fraction]5.7 %HighNINF - 5.6 %[facility] HealthInterpretation and review of laboratory resultsAbnormalTrinity DugddbTwT0p values of 5.7-6.4 percent indicate an increased risk for developing diabetes mellitus. HbA1c values greater than or equal to 6.5 percent are diagnostic of diabetes mellitus. For diagnosis of diabetes in individuals without unequivocal hyperglycemia, results should be confirmed by repeat testing. [facility] HealthHemogram and platelets WO differential panel (Bld)on 97-45-3720Ulbbsszbx (Bld) [#/Vol]0.05 10*3/uLTrinity HealthBasophils/100 WBC (Bld)0.4 %0.0 - 2.0 %[facility] HealthEosinophils (Bld) [#/Vol]0.07 10*3/uLTrinity HealthEosinophils/100 WBC (Bld)0.6 %0.0 - 7.0 %[facility] HospitalErythrocyte distribution width (RBC) [Ratio]13.9 %11.0 - 14.8 %[facility] HospitalHematocrit (Bld) [Volume fraction]40.6 %34.3 - 47.9 %[facility] HospitalHemoglobin (Bld) [Mass/Vol]12.9 g/dL12.0 - 16.0 g/dLSouthwood Psychiatric HospitalImmature granulocytes (Bld) [#/Vol]0.07 10*3/uLTrinity HealthImmature granulocytes/100 WBC (Bld)0.6 %0.0 - 1.2 %[facility] HospitalInterpretation and review of laboratory resultsAbnormal [facility] HealthLymphocytes (Bld) [#/Vol]1.28 10*3/uLTrWarren General HospitalLymphocytes/100 WBC (Bld)10.3 %Low17.9 - 49.6 %[facility] SystemH (RBC) [Entitic mass]27.9 pg [facility] SystemHC (RBC) [Mass/Vol]31.8 g/dL30.8 - 35.3 g/dLHoly Redeemer Health SystemV (RBC) [Entitic vol]87.7 fLTrinprotestant deaconess hospital HealthMonocytes (Bld) [#/Vol]1.01 10*3/uLHigh Renate HealthMonocytes/100 WBC (Bld)8.1 %0.0 - 12.0 %Renate HealthNeutrophils (Bld) [#/Vol]9.93 10*3/uLHighTrinity HealthNeutrophils/100 WBC (Bld)80.0 %High 38.1 - 75.5 %Renate HealthPlatelet mean volume (Bld) [Entitic vol]9.6 fLTrinity HealthPlatelets (Bld) [#/Vol]268 10*3/uLTrinity HealthRBC (Bld) [#/Vol]4.63 10*6/uLTrinity HealthWBC (Bld) [#/Vol]12.4 10*3/uLHighTrinity [facility] Doctors HospitalTrinity HealthXR Knee 1-2 Views Lefton [id number] Study observation (narrative) [facility] HospitalCBC AUTO DIFFon [id number] #0.0 103/ulNormal0.0-0.1The [facility] HospitalComment on above:Performed By: #### CBC #### [facility] [address] [address] [address] Kyree NealBasophils/100 WBC (Bld)0.3 %Normal0.2-2.0The [facility] Comment on above:Performed By: #### CBC #### [facility] [address] [address] [address] Kyree Jackson #0.0 103/ulNormal0.0-0.7The [facility] HospitalComment on above: Performed By: #### CBC #### [facility] [address] [address] [address] Kyree Cooperosinophils/100 WBC (Bld)0.1 %Critically low0.9-7.0The [facility] HospitalComment on above:Performed By: #### CBC #### [facility] [address] [address] [address] Kyree Cooperrythrocyte distribution width (RBC) [Ratio]14.0 %Cdegox77.0-15.0 The [facility] HospitalComment on above:Performed By: #### CBC #### [facility] [address] [address] [address] Kyree NealHematocrit (Bld) [Volume fraction]38.5 %Ejsqay27.0-48.0The [facility] HospitalComment on above:Performed By: #### CBC #### [facility] [address] [address] [address] Kyree NealHemoglobin (Bld) [Mass/Vol]12.4 g/oNPlplyt39.0-16.0The [facility] HospitalComment on above:Performed By: #### CBC #### [facility] [address] [address] [address] Kyree King #0.06 10e3/ulCritically high0.00-0.03The [facility] Comment on above:Performed By: #### CBC #### [facility] [address] [address] [address] Kyree King %0.4 %Normal0.0-0.5The [facility] HospitalComment on above: Performed By: #### CBC #### [facility] [address] [place] [address] Dr. Kyree Koch #0.9 103/ulCritically low1.2-3.8The [facility] Comment on above:Performed By: #### CBC #### [facility] [address] [address] [address] Kyree Hollingsworthhocytes/100 WBC (Bld)6.6 %Critically low20.5-60.0The [facility] HospitalComment on above:Performed By: #### CBC #### [facility] [address] [address] [address] Kyree LindquistUAL DIFF REQNONormalThe [facility] HospitalComment on above: Performed By: #### CBC #### [facility] [address] [address] [address] Kyree Marino (RBC) [Entitic mass]28.1 bjQusaar18.7-34.0The [facility] HospitalComment on above:Performed By: #### CBC #### [facility] [address] [place] [address] Dr. Kyree Marino (RBC) [Mass/Vol]32.2 g/gZToaocj69.9-35.2The [facility] HospitalComment on above:Performed By: #### CBC #### [facility] [address] [address] [address] Kyree MarinoV (RBC) [Entitic vol]87.1 iWFiodiy82.0-99.0The [facility] HospitalComment on above:Performed By: #### CBC #### [facility] [address] [address] [address] Kyree Powers #1.2 103/ulCritically high0.3-0.8ThSt. Mary's Medical Center Comment on above:Performed By: #### CBC #### [facility] [address] [address] [address] Kyree Pintoocytes/100 WBC (Bld)8.6 %Normal1.7-12.0[facility] Comment on above:Performed By: #### CBC #### [facility] [address] [place] [address] Dr. Kyree Sparks #11.5 103/ulCritically high1.4-6.5ThSt. Mary's Medical Center Comment on above:Performed By: #### CBC #### [facility] [address] [address] [address] Kyree Lebronutrophils/100 WBC (Bld)84.0 %Critically high43.0-75.0The [facility] HospitalComment on above:Performed By: #### CBC #### [facility] [address] [address] [address] Kyree Friendlet mean volume (Bld) [Entitic vol]10.0 fLNormal9.5-13.5The [facility] HospitalComment on above:Performed By: #### CBC #### [facility] [address] [address] [address] Kyree NealPLT250 103/gxDddoja088-561Vwc [facility] HospitalComment on above: Performed By: #### CBC #### [facility] [address] [address] [address] Kyree NealRBC4.42 106/ulNormal4.20-5.40The [facility] Furnace HospitalComment on above:Performed By: #### CBC #### [facility] [address] [address] [address] Kyree NealWBC13.7 103/ulCritically high4.0-11.0The [facility] HospitalComment on above:Performed By: #### CBC #### [facility] [address] [address] [address] Kyree Reddy 99-02-1157HQN07.8 mg/dLCritically high<=1.0The [facility] HospitalComment on above:Performed By: #### HH #### [facility] [address] [address] [address] Kyree CaiLTURE BLOODon 90-78-9673Dyqwekyatwi examination of blood, cultureCulture Observations: NO GROWTH AT 36-48 HOURS. FINAL TO FOLLOW.NormalThe [facility] HospitalComment on above:Performed By: #### BLDCX2 ####[facility] [address] [address]Dr. Kyree NealMicroscopic examination of blood, cultureCulture Observations: NO GROWTH AT 36-48 HOURS. FINAL TO FOLLOW.NormalThe [facility] HospitalComment on above:Performed By: #### BLDCX1 ####[facility] [address] [address]Dr. Kyree NealLACTATE/LACTIC ACIDon 95-25-9841Nvzkiej [Moles/Vol]1.2 mmol/LNormal0.4-2.0The [facility] HospitalComment on above: Performed By: #### HH #### [facility] [address] [place] [address] Dr. Kyree NealPROF CHEM 8 (BAS METB)on 60-62-5814Xhcso gap [Moles/Vol]11.6 mmol/LNormalThe [facility] HospitalComment on above:Performed By: #### HH #### [facility] [address] [place] [address] Dr. Kyree NealCalcium [Mass/Vol]9.0 mg/dLNormal8.5-10.1The [facility] Comment on above:Performed By: #### HH #### [facility] [address] [address] [address] Kyree NealChloride [Moles/Vol]102 mmol/QVhyuyq52-166Lfj [facility] Comment on above:Performed By: #### HH #### [facility] [address] [address] [address] Kyree NealCO2 [Moles/Vol]28.0 mmol/KQnufof20.0-32.0The [facility] Comment on above:Performed By: #### HH #### [facility] [address] [address] [address] Kyree NealCreatinine [Mass/Vol]1.34 mg/dLCritically high0.55-1.02The [facility] HospitalComment on above:Performed By: #### HH #### [facility] [address] [address] [address] Adorno ChangEGFR-AF TYWULVAO13 mL/min/1.41w8Vyjftbjjdf low>=60The [facility] HospitalComment on above:Performed By: #### HH #### [facility] [address] [address] [address] Kyree CooperGFR-NON AF APSBIRCU77 mL/min/1.45d7Ovwtffxybh low>=60The [facility] HospitalComment on above:Performed By: #### HH #### [facility] [address] [address] [address] Kyree NealGlucose [Mass/Vol]120 mg/dLCritically fmld70-440Sen [facility] HospitalComment on above:Performed By: #### HH #### [facility] [address] [address] [address] Kyree NealPotassium [Moles/Vol]3.6 mmol/LNormal3.5-5.1The [facility] Comment on above:Performed By: #### HH #### [facility] [address] [address] [address] Kyree NealSodium [Moles/Vol]138 mmol/AVaxfjh506-101Ngd [facility] Comment on above:Performed By: #### HH #### [facility] [address] [address] [address] Kyree NealUrea nitrogen [Mass/Vol]36.0 mg/dLCritically high7.0-18.0The [facility] HospitalComment on above:Performed By: #### HH #### [facility] [address] [address] [address] Kyree NealUrea nitrogen/Creatinine [Mass ratio]26.9 mg/mgNoMiddletown HospitalComment on above:Performed By: #### HH #### [facility] [address] [address] [address] Kyree NealSED RATE WESTERGRENon 95-41-7747SHQ RATE80 mm/hrCritically high <=30The [facility] HospitalComment on above:Performed By: #### HH #### [facility] [address] [address] [address] Kyree Bonds NGUYỄN DOP LEG LTon 20-40-1016OX NGUYỄN DOP LEG LTEXAM: US NGUYỄN DOP [...] Electronically authenticated by: LUCILA PRABHAKAR Date: 2023-03-15 18:55NoMiddletown HospitalXR KNEE LT 4V or >on [id number] KNEE LT 4V or >EXAM: XR KNEE [...] Electronically authenticated by: NAVEEN AZAR Date: 2023-03-15 19:13NoMiddletown HospitalUS THYROIDon [id number] THYROIDEXAMINATION: US THYROID HISTORY: Non-toxic multinodular goiter [...] Electronically authenticated by: NELIA TIJERINA Date: 2023-01-07 13:45[facility] HospitalC3 and C4 COMPLEMENTon 39-48-5894Uzlfxbcqcw C3, Serum95 mg/dL Dyyvhk65-727ClrSelect Medical Specialty Hospital - YoungstownComment on above:Performed By: #### HH #### [facility] [address] [address] [address] Kyree Josephplement C4, Serum25 mg/dZDopzax65-81LqySelect Medical Specialty Hospital - [place] Comment on above:Performed By: #### HH #### [facility] [address] [address] [address] Kyree NealCOMPLEMENT TOTAL (CH50)on 32-35-1460Gewdihuaob, Total (CH50)>60 Normal>41The [facility] HospitalComment on above:Result Comment: Age Male Female [...] of range values.Performed By: #### CH50T #### [facility] [address] [address] [address] Kyree Dsouza ANTIBODIESon 37-93-0489LEL Antibodies<0.5Qauxue9.0-0.9The [facility] HospitalComment on above:Performed By: #### RNPAB ####[facility] [address] [address]. Kyree McgeeC AUTO DIFF on 09-38-8729SDSL #0.1 103/ulNormal0.0-0.1The [facility] HospitalComment on above: Performed By: #### SEDR #### [facility] [address] [address] [address] Kyree NaelBasophils/100 WBC (Bld)1.2 %Normal0.2-2.0[facility] Comment on above:Performed By: #### SEDR #### [facility] [address] [address] [address] Kyree Jackson #0.6 103/ulNormal0.0-0.7The [facility] HospitalComment on above: Performed By: #### SEDR #### [facility] [address] [address] [address] Kyree Cooperosinophils/100 WBC (Bld)6.3 %Normal0.9-7.0The [facility] Comment on above:Performed By: #### SEDR #### [facility] [address] [address] [address] Kyree Cooperrythrocyte distribution width (RBC) [Ratio]13.5 %Phzwak71.0-15.0 The [facility] HospitalComment on above:Performed By: #### SEDR #### [facility] [address] [place] [address] Dr. Kyree NealHematocrit (Bld) [Volume fraction]39.0 %Onazgt85.0-48.0The [facility] HospitalComment on above:Performed By: #### SEDR #### [facility] [address] [place] [address] Dr. Kyree NealHemoglobin (Bld) [Mass/Vol]12.6 g/lAOofdvb19.0-16.0The [facility] HospitalComment on above:Performed By: #### SEDR #### [facility] [address] [place] [address] Dr. Kyree King #0.02 10e3/ulNormal0.00-0.03The [facility] HospitalComment on above:Performed By: #### SEDR #### [facility] [address] [place] [address] Dr. Kyree King %0.2 %Normal0.0-0.5The [facility] HospitalComment on above: Performed By: #### SEDR #### [facility] [address] [place] [address] Dr. Kyree Koch #1.9 103/ulNormal1.2-3.8The [facility] HospitalComment on above:Performed By: #### SEDR #### [facility] [address] [place] [address] Dr. Kyree Orellanamphocytes/100 WBC (Bld)22.4 %Uqugyf56.5-60.0The [facility] HospitalComment on above:Performed By: #### SEDR #### [facility] [address] [place] [address] Dr. Kyree LindquistUAL DIFF REQNONormalThe [facility] HospitalComment on above: Performed By: #### SEDR #### [facility] [address] [place] [address] Dr. Kyree Mota (RBC) [Entitic mass]28.1 erJwmeks55.7-34.0The [facility] HospitalComment on above:Performed By: #### SEDR #### [facility] [address] [place] [address] Dr. Kyree Marino (RBC) [Mass/Vol]32.3 g/wDWxfhmm52.9-35.2The [facility] HospitalComment on above:Performed By: #### SEDR #### [facility] [address] [place] [address] Dr. Kyree MarinoV (RBC) [Entitic vol]87.1 fXKuuaeh36.0-99.0The [facility] HospitalComment on above:Performed By: #### SEDR #### [facility] [address] [place] [address] Dr. Kyree Powers #0.8 103/ulNormal0.3-0.8The [facility] HospitalComment on above:Performed By: #### SEDR #### [facility] [address] [place] [address] Dr. Kyree Pintoocytes/100 WBC (Bld)9.0 %Normal1.7-12.0The [facility] Comment on above:Performed By: #### SEDR #### [facility] [address] [place] [address] Dr. Kyree Sparks #5.3 103/ulNormal1.4-6.5The [facility] HospitalComment on above:Performed By: #### SEDR #### [facility] [address] [place] [address] Dr. Kyree Lebronutrophils/100 WBC (Bld)60.9 %Bczmno88.0-75.0The [facility] HospitalComment on above:Performed By: #### SEDR #### [facility] [address] [place] [address] Dr. Kyree Friendlet mean volume (Bld) [Entitic vol]9.7 fLNormal9.5-13.5The [facility] HospitalComment on above:Performed By: #### SEDR #### [facility] [address] [address] [address] Kyree NealPLT232 103/xaQqtqvc766-625Fyz [facility] HospitalComment on above: Performed By: #### SEDR #### [facility] [address] [address] [address] Kyree NealRBC4.48 106/ulNormal4.20-5.40The [facility] HospitalComment on above:Performed By: #### SEDR #### [facility] [address] [address] [address] Kyree NealWBC8.7 103/ulNormal4.0-11.0The [facility] HospitalComment on above: Performed By: #### SEDR #### [facility] [address] [address] [address] Kyree Reddy 11-56-8346CXO1.8 mg/dLCritically high<=1.0The [facility] HospitalComment on above:Performed By: #### CRP, CMP ####[facility] [address] [address]Dr. Kyree NealPROF 14(COMP METB)on 87-87-1886Daeakqy [Mass/Vol]3.6 g/dLNormal3.4-5.0[facility] Comment on above:Performed By: #### CRP, CMP ####[facility] [address] [address]Dr. Kyree Neal Albumin/Globulin [Mass ratio]1.0 {ratio}NormalThe [facility] HospitalComment on above:Performed By: #### CRP, CMP ####[facility] [address] [address]Dr. Kyree NealALP [Catalytic activity/Vol]75 U/L Jkuuss77-382Nsg [facility] HospitalComment on above:Performed By: #### CRP, CMP ####[facility] [address] [address]Dr. Kyree NealALT [Catalytic activity/Vol]17 U/WGloblk56-12Bko [facility] Comment on above:Performed By: #### CRP, CMP ####[facility] [address] [place], [place] [address]Dr. Yilan ChangAnion gap [Moles/Vol]11.8 mmol/LNormalThe [facility] HospitalComment on above:Performed By: #### CRP, CMP ####[facility] [address] [place], [place] [address]Dr. Yilan ChangAST [Catalytic activity/Vol]19 U/JWdjvqd65-00Uof [facility] HospitalComment on above:Performed By: #### CRP, CMP ####[facility] [address] [place], [place] [address]Dr. Yilan Neal Bilirubin [Mass/Vol]0.6 mg/dLNormal0.2-1.0The [facility] HospitalComment on above: Performed By: #### CRP, CMP ####[facility] [address] [place], [place] [address]Dr. Yilan ChangCalcium [Mass/Vol]9.2 mg/dLNormal 8.5-10.1The [facility] HospitalComment on above:Performed By: #### CRP, CMP ####[facility] [address] [place], [place] [address]Dr. Yilan ChangChloride [Moles/Vol]99 mmol/XTxtshf91-349Wan [facility] HospitalComment on above:Performed By: #### CRP, CMP ####[facility] [address] [place], [place] [address]Dr. Yilan ChangCO2 [Moles/Vol]30.5 mmol/LNormal 21.0-32.0The [facility] HospitalComment on above:Performed By: #### CRP, CMP ####[facility] [address] [place], [place] [address]Dr. Yilan ChangCreatinine [Mass/Vol]1.03 mg/dLCritically high0.55-1.02The [facility] HospitalComment on above:Performed By: #### CRP, CMP ####[facility] [address] [place], [place] [address]Dr. Yilan ChangEGFR-AF SAO TOMEAN>60Normal>=60The [facility] HospitalComment on above:Performed By: #### CRP, CMP ####[facility] [address] [place], [place] [address]Dr. Yilan ChangEGFR-NON AF AWGGXCUL34 mL/min/1.39k5Ejazkbyflc low>=60The [facility] HospitalComment on above:Performed By: #### CRP, CMP ####[facility] [address] [place], [place] [address]Dr. Yilan Neal Globulin (S) [Mass/Vol]3.6 g/dLNormalThe [facility] HospitalComment on above: Performed By: #### CRP, CMP ####[facility] [address] [place], [place] [address]Dr. Yilan ChangGlucose [Mass/Vol]97 mg/qXOkbway10-500 The [facility] HospitalComment on above:Performed By: #### CRP, CMP ####[facility] [address] [place], [place] [address]Dr. Yilan Neal Potassium [Moles/Vol]3.3 mmol/LCritically low3.5-5.1The [facility] HospitalComment on above:Performed By: #### CRP, CMP ####[facility] [address] [place], [place] [address]Dr. Yilan ChangProtein [Mass/Vol]7.2 g/dLNormal 6.4-8.2The [facility] HospitalComment on above:Performed By: #### CRP, CMP ####[facility] [address] [place], [place] [address]Dr. Yilan ChangSodium [Moles/Vol]138 mmol/SLitzij560-634Sta [facility] HospitalComment on above:Performed By: #### CRP, CMP ####[facility] [address] [place], [place] [address]Dr. Yilan ChangUrea nitrogen [Mass/Vol]28.0 mg/dL Critically high7.0-18.0The [facility] HospitalComment on above:Performed By: #### CRP, CMP ####[facility] [address] [address]Dr. Kyree Douglas nitrogen/Creatinine [Mass ratio]27.2 mg/mgNoalThe [facility] HospitalComment on above:Performed By: #### CRP, CMP ####[facility] [address] [address]Dr. Kyree NealSED RATE WESTERGRENon 50-92-1041YYI RATE92 mm/hrCritically high<=30The [facility] HospitalComment on above:Performed By: #### SEDR #### [facility] [address] [address] [address] Kyree Brown RANDOM W/MICROSCOPICon 63-88-7221YWUIWIDBHDCG SEENNormalNONE SEENSelect Medical Specialty Hospital - YoungstownComment on above:Performed By: #### HH #### [facility] [address] [address] [address] Kyree Nair Ql (U)NegativeNormalNEGATIVEThe [facility] Comment on above:Performed By: #### HH #### [facility] [address] [address] [address] Kyree NealCASTRIO SEENNormalNONE SEENSelect Medical Specialty Hospital - YoungstownComment on above:Performed By: #### HH #### [facility] [address] [address] [address] Kyree Allred (U)CLEARNormalCLEARSelect Medical Specialty Hospital - YoungstownComva medical center on above: Performed By: #### HH #### [facility] [address] [address] [address] Kyree Damico (U)YELLOWNormalYELLOWSelect Medical Specialty Hospital - YoungstownComment on above: Performed By: #### HH #### [facility] [address] [address] [address] Kyree NealCrystals LM Nom (Urine sed)NONE SEENNormalNONE SEENSelect Medical Specialty Hospital - YoungstownComment on above:Performed By: #### HH #### [facility] [address] [address] [address] Adorno ChangEpithelial cells LM Ql (Urine sed)RARENormalNONE SEEN /RAREThe [facility] HospitalComment on above:Performed By: #### HH #### [facility] [address] [address] [address] Kyree NealGlucose Ql (U)NegativeNormalNEGATIVESelect Medical Specialty Hospital - YoungstownComment on above:Performed By: #### HH #### [facility] [address] [address] [address] Kyree NealHemoglobin Ql (U)NegativeNormalNEGATIVENationwide Children'S Hospital on above:Performed By: #### HH #### [facility] [address] [place] [address] Dr. Kyree NealKetones Ql (U)NegativeNormalNEGATIVESelect Medical Specialty Hospital - YoungstownComment on above:Performed By: #### HH #### [facility] [address] [place] [address] Dr. Kyree NealLEUKOCYTESNegativeNormalNEGATIVESelect Medical Specialty Hospital - YoungstownComment on above:Performed By: #### HH #### [facility] [address] [place] [address] Dr. Kyree NealMUCOUSNONE SEENNormalNONE SEENSelect Medical Specialty Hospital - YoungstownComment on above:Performed By: #### HH #### [facility] [address] [place] [address] Dr. Kyree NealNitrite Ql (U)NegativeNormalNEGATIVESelect Medical Specialty Hospital - YoungstownComment on above:Performed By: #### HH #### [facility] [address] [place] [address] Dr. Kyree NealpH (U)7.0 [pH]Normal5-9The [facility] HospitalComment on above: Performed By: #### HH #### [facility] [address] [place] [address] Dr. Kyree NealHexspJWP1-7Olcmxo0-1Ilf [facility] HospitalComment on above:Performed By: #### HH #### [facility] [address] [place] [address] Dr. Kyree NealSPEC GRAVITY1.305Zwhbdf9.005-<=1.025The [facility] HospitalComment on above:Performed By: #### HH #### [facility] [address] [address] [address] Kyree Brown PROTEINNegativeNormalNEGATIVE/ TRACEThe [facility] Comment on above:Performed By: #### HH #### [facility] [facility] [address] [address] [address] Kyree Oviedobilinogen Qn (U)1.0 {Herrera'U}/dLNormal0.2 - 1.0The [facility] Community HospitalComment on above:Performed By: #### HH #### [facility] [address] [address] [address] Kyree FinneyNONLeydi SEENNormalNONE SEENThe Hocking [facility] Community HospitalComment on above: Performed By: #### HH #### [facility] [address] [address] [address] Kyree Caba identified Anaer cx Nom (Unsp spec)on 68-83-9149Mvbjocv HealthGlucose Auto test strip (Bld) [Mass/Vol]on 88-97-9321Kehnrjt [Mass/Vol]93 mg/dL70 - 99 mg/dLTrinity HealthInterpretation and review of laboratory results NormalTrinCorewell Health Greenville Hospital HealthGlucose [Mass/Vol]101 mg/qMSlxf60 - 99 mg/dL Renate HealthInterpretation and review of laboratory resultsAbnormalWellSpan Ephr[facility] Hospital HealthLaboratory - Microbiology and Antimicrobial susceptibilityon 94-75-1226Dxceqqsz identified Anaer cx Nom (Unsp spec)No anaerobes grown after 4 days.[facility] HospitalBacteria identified Sterile body fluid culture Nom (Unsp spec)on 49-22-2234Sbcxdrok identified Cx Nom (Body fld)No growth at 3 days Renate HealthGlucose Auto test strip (Bld) [Mass/Vol]on 97-69-8182Sdrrost [Mass/Vol]133 mg/gGRjud29 - 99 mg/dLTrinity HealthInterpretation and review of laboratory resultsAbnormalTrinity HealthTrinity HealthGlucose [Mass/Vol]141 mg/yVZkue32 - 99 mg/dLTrinity HealthInterpretation and review of laboratory resultsAbnormalTrinity HealthTrinity HealthLaboratory - Microbiology and Antimicrobial susceptibilityon 12-89-4635Lprdaffn identified Cx Nom (Tiss)No growth at 3 [...] a previously preliminary verified report.No Panel Informationon 32-80-5358Vlqwkoo HealthBasic metabolic 2000 panelon 50-12-3412Gzfxk gap [Moles/Vol]8 mmol/L6 - 18 Renate HealthCalcium [...] HealthTrinity HealthGlucose Auto test strip (Bld) [Mass/Vol]on 98-63-4662Kvpmvrn [Mass/Vol]125 mg/dPTnor60 - 99 mg/dLSouthwood Psychiatric HospitalInterpretation and review of laboratory resultsAbnormCommunity Health Systems Renate HealthGlucose [Mass/Vol]94 mg/dL70 - 99 mg/dLGreenwald Health Interpretation and review of laboratory resultsNormalWellSpan [facility] HealthGlucose [Mass/Vol]93 mg/dL70 - 99 mg/dLTrinprotestant deaconess hospital HealthInterpretation and review of laboratory resultsNormKindred Hospital Philadelphia - Havertown HealthGlucose [Mass/Vol] 87 mg/dL70 - 99 mg/dLGreenwald HealthInterpretation and review of laboratory resultsNormMcLaren Port Huron HospitalHemogram and platelets WO differential panel (Bld)on 50-08-1808Bbsxbvqcuxo distribution width (RBC) [Ratio]13.9 %11.0 - 14.8 %[facility] HospitalHematocrit (Bld) [Volume fraction]39.6 %34.3 - 47.9 % [facility] HospitalHemoglobin (Bld) [Mass/Vol]12.2 g/dL12.0 - 16.0 g/dLSouthwood Psychiatric Hospital Interpretation and review of laboratory resultsNormalHoly Redeemer Health SystemH (RBC) [Entitic mass]27.7 pgTrinButler Memorial HospitalHC (RBC) [Mass/Vol]30.8 g/dL30.8 - 35.3 g/dLHoly Redeemer Health SystemV (RBC) [Entitic vol]90.0 fLTrinprotestant deaconess hospital HealthPlatelet mean volume (Bld) [Entitic vol]10.3 fLTrinprotestant deaconess hospital HealthPlatelets (Bld) [#/Vol]194 10*3/uLTrinity HealthRBC (Bld) [#/Vol]4.40 10*6/uLTrinity HealthWBC (Bld) [#/Vol]9.2 10*3/uLTrMarshfield Medical Center HealthBasic metabolic 2000 panelon 82-71-9818Ajsja gap [Moles/Vol]9 mmol/L6 - 18Trinprotestant deaconess hospital HealthCalcium [Mass/Vol]9.0 mg/dL8.9 - 10.3 mg/dLTrinprotestant deaconess hospital HealthChloride [Moles/Vol]105 mmol/L98 - 107 mmol/LTrinity HealthCO2 [Moles/Vol]25 mmol/L22 - 32 mmol/LTrinity Health Creatinine [Mass/Vol]0.97 mg/dL0.60 - 1.30 mg/dLTrinity HealthGFR/1.73 sq M.predicted among non-blacks MDRD (S/P/Bld) [Vol rate/Area]64 mL/min/{1.73_m2}- PINFTgeisinger jersey shore hospital HealthComment on above:Effective July 27, 2022, calculation based on the Chronic Kidney Disease Epidemiology Collaboration (CKD-EPI) equation refit without adjustment for race.Glucose [Mass/Vol]132 mg/qJKykq42 - 99 mg/dL Renate HealthInterpretation and review of laboratory resultsAbnormalTrinity HealthPotassium [Moles/Vol]4.6 mmol/L3.6 - 5.1 mmol/LTrinity HealthSodium [Moles/Vol]139 mmol/L136 - 145 mmol/LTrinity HealthUrea nitrogen [Mass/Vol]19 mg/dL8 - 20 mg/dLTrinity HealthUrea nitrogen/Creatinine [Mass ratio]19.6 mg/mg 12.0 - 20.0Trinity HealthTrinity HealthGlucose Auto test strip (Bld) [Mass/Vol] on 97-84-4209Ckkwijn [Mass/Vol]122 mg/cBAkdw88 - 99 mg/dLTrinity Health Interpretation and review of laboratory resultsAbnormalTrinity HealthTrinity HealthGlucose [Mass/Vol]150 mg/xGRbty51 - 99 mg/dLTrinity HealthInterpretation and review of laboratory resultsAbnormalTrinity HealthTrinity HealthGlucose [Mass/Vol]116 mg/gIXoxg00 - 99 mg/dLTrinity HealthInterpretation and review of laboratory resultsAbnormalTrinity HealthTrinity HealthGlucose [Mass/Vol]115 mg/mTRxtm59 - 99 mg/dLTrinity HealthInterpretation and review of laboratory resultsAbnormalTrinity HealthTrinity HealthHemogram and platelets WO differential panel (Bld)on 15-22-5091Pcscrrzioiw distribution width (RBC) [Ratio]13.9 %11.0 - 14.8 %[facility] HealthHematocrit (Bld) [Volume fraction]40.6 % 34.3 - 47.9 %Ren[facility] HealthHemoglobin (Bld) [Mass/Vol]13.0 g/dL12.0 - 16.0 g/dL [facility] HospitalInterpretation and review of laboratory resultsNormalHoly Redeemer Health SystemH (RBC) [Entitic mass]28.8 pgHoly Redeemer Health SystemHC (RBC) [Mass/Vol]32.0 g/dL30.8 - 35.3 g/dLHoly Redeemer Health SystemV (RBC) [Entitic vol]89.8 [facility] Platelet mean volume (Bld) [Entitic vol]10.0 [facility] HospitalPlatelets (Bld) [#/Vol]243 10*3/[facility] PoconoRBC (Bld) [#/Vol]4.52 10*6/[facility] PoconoWBC (Bld) [#/Vol]10.2 10*3/[facility] HealthPathology studyOrdered By: Nathaniel Morel on 57-57-5863Mrvnkmsd Jeff (Reference lab test) y7mksFXbXVZkcZGfDPQuLpfjyaViDMExgMGkP0EvrscuYAmjNL6yLY2qgOmvuHBsiURkEMKzZuJao7ye v260uTKhk1qoEEJDmcdd nMc9b4quQCVNEZazFYBMKOq8jIbpS74iv7C1HclkF1pxLLEjBTumexEfwcZ9QEOgzIWeFOy1APEdtFPk dzEyMjQwXHBhcGVyaDE1 LXNyXI2qyjthMWxsSThiUOYmnjL6WSIckMGuL3KzIKXcOF8cafhwRKP8FCzpMSLfYRC0PkSbYADzh1Jc axo7VqGxtOBuNDauhILy ssjcPULzRMPiLRjfS1MxUEIwUIG5RBQsrsteWRviM05hnG9yXL68AIxdxxEuHWGbb8VeLGJmBIYyWHao VUKpolTuQRdizS5wu6h3 ELglRa8vLLUurpthGMQ4SzExZT46EumwrYQuKMBMqoXlTLDmxVGkKkJuXMUUoFysWAQfHnL8QuPMuCGq p2Ich1PyPnTllPJqcF4prYwdjgG5TINwkBBlYs9drLEgVonmTAI8[facility] Work Phone: Microscopic description Jeff (Endomyocardium) o7uyvDOtDAWggVEIYUKmUZKhFB5fqReznVe8eBkwAOGcuuD4iTNiTYiqo9mpIEA0a4chmgNPUsjgGXVd XE1dEKjqBFPyOI2uNlTr KLJeVzUwWPZqhBEcspOtIlBxYHYjlNDkdQD5WFCyBI4amuyfJRkuZFjeUOZscdM4HVOdwFOvC9LsUXYw NX1olipkLTH4IEVDGvoz Ku3dhRRvrYNIIlunByFqWwIqBASnYHXtIFFlxThsURCcJVt0kU8Zu5cfEekcK9jzinOrzHAnZl8foMPH VUysABWLHEk3rN3PZMVa J1VvAR1Gv8ulMFCvzNJvBXL2LDuik0ldWKsrTWA2ZSAsBIDzAEHxLD6IDjVoYEF3PdA4BNV1MpT7JLi0 FGHTJAAbNuu2JxAwJYm4 FZa0HEnnkbkjHNp8OMKrMZbnwWYpSC4sfXoiTzkgoLdsm5RqnWItZAQbJWqyhDEnTVDzWMFqVPfnPdGN PmRnQiToYyI4NsM2OcWv VTe5ADguB0ILPDFpRUX3OAz2PbH9XuF5BKx0UUMMUr2cGwAkVAx5TUg8QQO0XXT9UpWfGPWcAoOhDVPs WRXoNHlplBJnRM9meAbt MMQyTK7ZISGtSLlwCLZhSOZoSqSnQU9yR46sHDuzLRRgpXzzIoNvPDIjyBLbqWLxrTHim2W8rKKjNCm4 jLQlg0L6aMupMBaaNree fNBffIIkRxyxHTNgTDbzmDXvSXNEIcorhMEpzqpcYMadmxElXJOfVPqnYFk0kmMmGOHkLkIgCVPjA30t y6LBw9ImJY7XGXi8lcSl emhmsA8wWXSupaPdSXmzOhLxHrKrFNMZTQAmwTYkCQVyedQjv9GfMMnjsyLcBKIpbJYeXHwpvLudgRZ5 aFZvuDDyBY6tQHKgWGNt WUozHxBst64hNYVadRIgPDD1EDIaMGKvF3WkW2D9JUVbFaFqgBCaukIbxQHerD4oczy8uN0bUSXfRKAj bPQpxL8wwnAsbmAnFPL7 iP9tQZGjWV6pROFpnSTuf3JuwWR4zSZedUvek9NzzHf2vUGsKBqjYJIac8VxSSMiWpktKIQfXTjzeYVt BQ1YBVUhAqNlUBQnC5jf DGQqGP1EBZbydboUWqzrVYEsWBYeI4joKRQlABorFFMuN92yu5PUg9Ywb1himGklm6CsiKQaST98JBVd hRCuXZD0GW7abIcnHCEpTVesPmFzReAuBnSYDq6=[facility]xw[facility] Work Phone: Pathology report final diagnosis Narrative c4udiPIaBEBomYToNJZwGedpbhAsBINqnUBsW2ZtvjsxAJjyZM7bWA4rhPhfdVWuoROrJWXxPwFbd1ej h126rPPui9mkOXSZglyl iFa0eJpdJ68fx4D4QisuW7zdTJQoIVhsCYDwOPuoeGDuGKd1TDEwnCFblbNgRdPdRJExcIFfkQI7DUOj GX0aivhhAGzwUJixBDSa feP1VMGylRJtT8PiXMOlYY0nqqlcNHZ0NMaeGXXfGES4EySmAXTns2Deehw0DhDefNs5v6kePRZlMIJc eAhze4crYCT4TRHamJZy O8jqnA7tWPDxHR7jxfqdn6liLWhzHOwcHAUitCM7qjY2AWFzlBZzQ7MjzV7lGKYkCMMktfLujOvzFdS1 OBmfsJAgrkrqHcNbR15w zZT1xENmxCTiUClpPkAdb09zDCarqIYgOGAzNTPZJIkedAm3KWSxz5Tgl5maglwzqYYxauFeqCHucHHd e5A5aCUmTFObzd9zmLPqvB6upWDkmWB8vN9jGwloPXO1Cpgqdgy Health Work Phone: [employer] Here Work Phone: Cell count panel (Body fld)Ordered By: Navin Tracy on 34-78-0407Hwoajgs (Body fld)HazyTrinPick a Student HealthColor (Body fld)YellowTrinHairboboRBC Auto (Body fld) [#/Vol]5000 /hs5Yfpxznv [employer] NetworksComment on above:The reference range and other method performance specifications have not been established for this fluid specimen. The test result should be integrated into the clinical context for interpretation.Specimen source Nom (Body fld)Synovial Be HereWBC (Body fld) [#/Vol]167 /mx0Khdlcjy HealthComva medical center on above:The reference range and other method performance specifications have not been established for this fluid specimen. The test result should be integrated into the clinical context for interpretation.Be HereDifferential panel (Body fld)on 68-32-6068Qwexnxajkar/100 WBC Manual cnt (Body fld)71.0 %[facility] Monocytes+Macrophages/100 WBC (Body fld)17.0 %[facility] HealthNeutrophils/100 WBC (Body fld)3.0 %[facility] HealthOther cells/100 WBC (Body fld)9.0 %[facility] Comment on above:Lining cellsTrinity HealthGlucose Auto test strip (Bld) [Mass/Vol]on 31-00-3189Qcgozin [Mass/Vol]188 mg/yBBkyv75 - 99 mg/dLTrinprotestant deaconess hospital HealthInterpretation and review of laboratory resultsAbnormalGreenwald Health Renate HealthGlucose [Mass/Vol]121 mg/sBRscn98 - 99 mg/dLTrinprotestant deaconess hospital Health Interpretation and review of laboratory resultsAbnormalTrinprotestant deaconess hospital HealthTrinprotestant deaconess hospital HealthGlucose [Mass/Vol]78 mg/dL70 - 99 mg/dLTrinity HealthInterpretation and review of laboratory resultsNormalWellSpan [facility] HealthGlucose [Mass/Vol] 120 mg/rQXdiv65 - 99 mg/dLTrinprotestant deaconess hospital HealthInterpretation and review of laboratory resultsAbnormalWellSpan [facility] XxhdotNYYT-HyK-3 (COVID-19) RNA TORRES+probe Ql (Resp)on 72-20-6269Mxqrjzbvpufbeb and review of laboratory resultsNormal [facility] HospitalVdllsjVNNF-IsA-3 (COVID-19) RdRp gene TORRES+probe Ql (Resp)Not detectedNot DetectedTrinCorewell Health Greenville Hospital HealthXR Knee 1-2 Views Lefton . [...] By: Self Edit Transcribed Date: 10/02/2022 15:21 [facility] HospitalRadiology Study observation (narrative)[facility] HospitalXR Knee 1-2 Views LeftOrdered By: Vlad Fiore on 60-22-6368Isdhbdw [employer] Work Phone: Office Visit (Cardiology)on 71-28-6165Msfxlb-up visit Diagnoses/Problems Assessed Chronic right-sided congestive heart [...] Weight Tips; Status:Complete - Retrospective Authorization; Done: [id number] Some eating tips that can help you lose weight.; Status:Complete - Retrospective Authorization; Done: [id number] SocHx: Former smoker Tobacco Use Screening; Status:Complete; Done: [id number] Patient Instructions Please bring all medicines, vitamins, [...] implantable device. She will discuss with her director of child welfare services Dr. Encarnacion 5. I reviewed her recent [...] AerosolUSE (more content not included)...NormalUH TouchworksTobacco Screening.on 08-18-8605Kwyt risk assessmenta) No falls within the last year-[facility] ZikBit 250 DO Work Phone: Tobacco use status CPHSb) NoMP-[facility] CodaMation 250 DO Work Phone: Tobacco Screening.YesMP-[facility] MD On-Lineusky 250 DO Work Phone: pth INTACTon 38-14-0694DGN, Kqcdlw90 pg/tQAqrexj09-79 The [facility] Community HospitalComment on above:Performed By: #### PTHINT ####[facility] [address] [address]Dr. Kyree Neal HEMOGRAM AND PLATELon 67-07-3004Ncsrczgboo (Bld) [Volume fraction]38.4 %Normal 36.0-48.0The [facility] Community HospitalComment on above:Performed By: #### HH #### [facility] [address] [place] [address] Dr. Kyree NealHemoglobin (Bld) [Mass/Vol]12.2 g/wRPqipwh31.0-16.0The [facility] Community HospitalComment on above:Performed By: #### HH #### [facility] [address] [place] [address] Dr. Kyree Marino (RBC) [Entitic mass]28.6 dfTpmbgm88.7-34.0The [facility] Community HospitalComment on above:Performed By: #### HH #### [facility] [address] [place] [address] Dr. Kyree Marino (RBC) [Mass/Vol]31.8 g/sCSebctw85.9-35.2The [facility] Community HospitalComment on above:Performed By: #### HH #### [facility] [address] [place] [address] Dr. Kyree Marino (RBC) [Entitic vol]89.9 iHRywkpa33.0-99.0The [facility] Community HospitalComment on above:Performed By: #### HH #### [facility] [address] [place] [address] Dr. Kyree NealPLT250 103/kaZpiaes656-000Gbi [facility] HospitalComment on above: Performed By: #### HH #### [facility] [address] [place] [address] Dr. Kyree NealRBC4.27 106/ulNormal4.20-5.40The [facility] Community HospitalComment on above:Performed By: #### HH #### [facility] [address] [address] [address] Kyree NealWBC7.7 103/ulNormal4.0-11.0The [facility] HospitalComment on above: Performed By: #### HH #### [facility] [address] [address] [address] Kyree NealMAGNESIUMon 77-89-1150Ztaazguqf [Mass/Vol]2.2 mg/dLNormal1.8-2.4 The [facility] HospitalComment on above:Performed By: #### URIC, CMP, MG ####[facility] [address] [address]Dr. Kyree NealPROF 14(COMP METB)on 43-43-1681Qraixhh [Mass/Vol]3.5 g/dLNormal 3.4-5.0The [facility] Community HospitalComment on above:Performed By: #### URIC, CMP, MG ####[facility] [address] [address]Dr. Kyree NealAlbumin/Globulin [Mass ratio]0.9 {ratio}NormalThe [facility] Comment on above:Performed By: #### URIC, CMP, MG ####[facility] [address] [address]Dr. Kyree NealALP [Catalytic activity/Vol]61 U/UFkcmec04-514Uad [facility] Miamisburgment on above:Performed By: #### URIC, CMP, MG ####[facility] [address] [address]Dr. Kyree NealALT [Catalytic activity/Vol]23 U/L Xbcgss42-23Dsm [facility] Miamisburgment on above:Performed By: #### URIC, CMP, MG ####[facility] [address] [address]Dr. Kyree NealAnion gap [Moles/Vol]9.9 mmol/LNormalThe [facility] Community HospitalComment on above:Performed By: #### URIC, CMP, MG ####[facility] [address] [address]Dr. Yilan ChangAST [Catalytic activity/Vol]21 U/QBisrux64-62Vew [facility] HospitalComment on above:Performed By: #### URIC, CMP, MG ####[facility] [address] [address]Dr. Yilan ChangBilirubin [Mass/Vol]0.3 mg/dLNormal0.2-1.0The [facility] Community HospitalComment on above:Performed By: #### URIC, CMP, MG ####[facility] [address] [place], [place] [address]Dr. Yilan ChangCalcium [Mass/Vol]9.0 mg/dLNormal8.5-10.1The [facility] HospitalComment on above:Performed By: #### URIC, CMP, MG ####[facility] [address] [place], [place] [address]Dr. Yilan ChangChloride [Moles/Vol]106 mmol/LNormal 98-107The [facility] Community HospitalComment on above:Performed By: #### URIC, CMP, MG ####[facility] [address] [place], [place] [address]Dr. Yilan ChangCO2 [Moles/Vol]29.4 mmol/JLxzxyt55.0-32.0The [facility] HospitalComment on above:Performed By: #### URIC, CMP, MG ####[facility] [address]qdgix[address] [place], [place] [address]Dr. Yilan ChangCreatinine [Mass/Vol]0.90 mg/dLNormal0.55-1.02The [facility] HospitalComment on above:Performed By: #### URIC, CMP, MG ####[facility] [address] [place], [place] [address]Dr. Yilan ChangEGFR-AF SAO TOMEAN>60Normal>=60The [facility] Comment on above:Performed By: #### URIC, CMP, MG ####[facility] [address] [place], [place] [address]Dr. Yilan ChangEGFR-NON AF SAO TOMEAN>60Normal>=60The [facility] Miamisburgment on above:Performed By: #### URIC, CMP, MG ####[facility] [address] [address]Dr. Yilan ChangGlobulin (S) [Mass/Vol]3.8 g/dLNormWayne HealthCare Main CampusComment on above:Performed By: #### URIC, CMP, MG ####[facility] [address] [address]Dr. Yilan ChangGlucose [Mass/Vol]89 mg/hERywsea22-745Yqw [facility] HospitalComva medical center on above:Performed By: #### URIC, CMP, MG ####[facility] [address]iz[address] [place], [place] [address]Dr. Yilan ChangPotassium [Moles/Vol]4.3 mmol/LNormal 3.5-5.1The [facility] HospitalComva medical center on above:Performed By: #### URIC, CMP, MG ####[facility] [address] [place], [place] [address]Dr. Yilan ChangProtein [Mass/Vol]7.3 g/dLNormal6.4-8.2The [facility] HospitalComva medical center on above:Performed By: #### URIC, CMP, MG ####[facility] [address] [address]Dr. Yilan ChangSodium [Moles/Vol]141 mmol/L Duipmc617-446Hrg [facility] on above:Performed By: #### URIC, CMP, MG ####[facility] [address] [address]Dr. Yilan ChangUrea nitrogen [Mass/Vol]18.0 mg/dLNormal7.0-18.0The [facility] HospitalComment on above:Performed By: #### URIC, CMP, MG ####[facility] [address] [address]Dr. Yilan ChangUrea nitrogen/Creatinine [Mass ratio]20.0 mg/mgNoMiddletown HospitalComment on above:Performed By: #### URIC, CMP, MG ####[facility] [address] [address]Dr. Kyree Wang 28-32-0963Solquudrx Ql (U)NegativeNormalNEGATIVESelect Medical Specialty Hospital - YoungstownComment on above:Performed By: #### SEDR #### [facility] [address] [address] [address] Kyree NealClarity (U)CLEARNormalCLEARSelect Medical Specialty Hospital - YoungstownComment on above: Performed By: #### SEDR #### [facility] [address] [address] [address] Kyree Fordlor (U)YELLOWNormalYELLOWSelect Medical Specialty Hospital - YoungstownComment on above: Performed By: #### SEDR #### [facility] [address] [address] [address] Kyree NealGlucose Ql (U)NegativeNormalNEGATIVESelect Medical Specialty Hospital - YoungstownComment on above:Performed By: #### SEDR #### [facility] [address] [address] [address] Kyree NealHemoglobin Ql (U)NegativeNormalNEGKettering Health Preble on above:Performed By: #### SEDR #### [facility] [address] [address] [address] Kyree NealKetones Ql (U)NegativeNormalNEGATIVESelect Medical Specialty Hospital - YoungstownComment on above:Performed By: #### SEDR #### [facility] [address] [address] [address] Kyree NealLEUKOCYTESNegativeNormalNEGATIVESelect Medical Specialty Hospital - YoungstownComva medical center on above:Performed By: #### SEDR #### [facility] [address] [address] [address] Kyree NealNitrite Ql (U)NegativeNormalNEGATIVESelect Medical Specialty Hospital - YoungstownComment on above:Performed By: #### SEDR #### [facility] [address] [address] [address] Kyree NealpH (U)5.5 [pH]Normal5-9The [facility] HospitalComment on above: Performed By: #### SEDR #### [facility] [address] [address] [address] Kyree NealSPEC GRAVITY1.256Ebfrgp4.005-<=1.025The [facility] HospitalComment on above:Performed By: #### SEDR #### [facility] [address] [address] [address] Kyree Brown PROTEINNegativeNormalNEGATIVE/ TRACEThe [facility] Comment on above:Performed By: #### SEDR #### [facility] [address] [address] [address] Kyree Oviedobilinogen Qn (U)0.2 {Herrera'U}/dLNormal0.2 - 1.0The [facility] HospitalComment on above:Performed By: #### SEDR #### [facility] [address] [address] [address] Kyree NealURIC ACID SERUMon 07-05-4826Pyqxq [Mass/Vol]3.7 mg/dLNormal 2.6-6.0The [facility] HospitalComment on above:Performed By: #### URIC, CMP, MG ####[facility] [address] [place], [place] [address]DrDulce NealURINE T PROTEIN CREAT RATIOon 13-99-5320Ltzcjrl (U) [Mass/Vol]11.1 mg/dLNormal<=12.0The [facility] HospitalComment on above:Performed By: #### URTPCR ####[facility] [address] [place], [place] [address]Dr. Kyree NealUR PROT CREAT RAT0.18NormalThe [facility] HospitalComment on above: Performed By: #### URTPCR ####[facility] [address] [place], [place] [address]Dr. Kyree NealURINE CREAT62.29 mg/dLNormal 20.00-300.00The [facility] HospitalComment on above:Performed By: #### URTPCR ####[facility] [address] [place], [place] [address]SlDr. Kyree NealVITAMIN D 25 OHon 31-10-3683NWU D 25-OH57.7 ng/mLNDoctors HospitalComment on above:Performed By: #### HH #### [facility] [address] [place], [place] [address] Dr. Kyree Goldman RANGESSEE [facility]icking Memorial HospitalComment on above: Result Comment: <20 ng/mL Vit D deficient 20 - <30 ng/mL Vit D insufficient 30 - 100 ng/mL Vit D sufficient >100 ng/mL Potential ToxicityPerformed By: #### HH #### [facility] [address] [address] [address] Kyree NealA1C HEMOGLOBINon 97-47-4090DgQ8p (Bld) [Mass fraction]5.7 %[employer] Other HbA1c (Bld) [Mass fraction]on 66-30-3486Q2X HEMOGLOBIN [employer] Other Urine culture routineOrdered By: Deidra Lee on 64-06-7725Dyczojcw identified Cx Nom (U)Escherichia coliSt. Mary'S Medical Center, Ironton CampusAutomated erythrocytes count in urine sediment (number/area) Ordered By: Deidra Silvaimore on 77-34-4737EIS Auto (Urine sed) [#/Area]10-19 [HPF]0-4FAkron Children's HospitalAutomated leukocytes count in urine sediment (number/area)Ordered By: Deidra Bullimore on 05-86-7287ONZ Auto (Urine sed) [#/Area]20-49 [HPF]0-4FAkron Children's HospitalBilirubin Test strip Ql (U)Ordered By: Deidra Bullimore on 30-91-8756Yerxrzhkn Ql (U)Negative NegativeSt. Mary'S Medical Center, Ironton CampusColor Auto (U)Ordered By: Deidra Bullimore on [id number] (U)YellowYellowSt. Mary'[facility] [place] [facility] Ketones Auto test strip (U) [Mass/Vol]Ordered By: Deidra Bullimore on 05-27-2022 Ketones (U) [Mass/Vol]NegativeNegativeSt. Mary[facility] [place] [facility] Laboratory - UrinalysisOrdered By: Deidra Lee on 68-88-6958Ibnrtuy casts LM Ql (Urine sed)0-8 [LPF]0-8St[facility] [place] CampusNitrite Test strip Ql (U)Ordered By: Deidra Silvaimore on 14-43-1635Nyzbqrs Ql (U)NegativeNegative [facility] [place] CampusProtein Auto test strip (U) [Mass/Vol]Ordered By: Deidra Silvaimore on 61-39-9678Wjqbjeh (U) [Mass/Vol]NegativeNegative [facility] Hospitalpecific gravity Auto test strip (U) [Rel density]Ordered By: Deidra Lee on 45-79-6741Etcobicw gravity (U) [Rel density][phone] Hospitalquamous epithelial cells detection in urine sediment by light microscopyOrdered By: Deidra Lee on 09-01-6074Zfxynojczl cells.squamous LM Ql (Urine sed)None seen [HPF]0-2FAkron Children's HospitalUrine bacteria detection by automated methodOrdered By: Deidra Lee on 22-31-5219Nzdibwbu Auto Ql (U)2+None Seen [facility] CampusUrine clarity by refractometry automatedOrdered By: Deidra Lee on 46-44-8437Atfrsvc Refractometry automated (U)ClearClear [facility] CampusUrine glucose measurement by automated test strip (mass/volume)Ordered By: Deidra Lee on 81-42-8851Uffgouk Auto test strip (U) [Mass/Vol]Normal mg/dLNormCleveland Clinic Mercy HospitalUrine hemoglobin detection by automated test stripOrdered By: Deidra Lee on 67-54-2106Sfheqzjtox Auto test strip Ql (U)2+[facility] HospitalUrine leukocyte esterase detection by automated test stripOrdered By: Deidra Silvaimore on 87-20-4062Yucxsqbqu esterase Auto test strip Ql (U)3+ NegativeSt. Mary'S Medical Center, Iront[facility] CampusUrobilinogen Auto test strip (U) [Mass/Vol]Ordered By: Deidra Silvaimore on 67-15-2685Vgwfevaujogj (U) [Mass/Vol] Normal mg/dLNormalSt. Mary'S Medical Center, Ironton CampuspH Auto test strip (U)Ordered By: Deidra Lee on 71-85-5489tB (U)5.5 [pH]5.0-9.0[facility] CampusBasophils Auto (Bld) [#/Vol]Ordered By: Peter Sosa on 72-78-3332Itlqqtdxh (Bld) [#/Vol]0.1 10*3/uL0.0-0.2FAkron Children's HospitalBasophils/100 WBC Auto (Bld)Ordered By: Peter Sosa on 05-21-2022 Basophils/100 WBC (Bld)0.8 %.[facility] CampusBlood hemoglobin measurement (mass/volume)Ordered By: Peter Sosa on 89-49-7748Zgklamxuwq (Bld) [Mass/Vol]12.8 g/dL11.8-15.4FAkron Children's HospitalBlood leukocytes automated count (number/volume)Ordered By: Peter Sosa on 24-39-2694YGX (Bld) [#/Vol]8.5 10*3/uL4.5-11.0[facility] Body fluid albumin measurement (mass/volume)Ordered By: Peter Sosa on 31-00-9883Zlqzjka (Body fld) [Mass/Vol]3.7 g/dL3.2-5.5FAkron Children's HospitalCholesterol [Mass/volume] in Serum or PlasmaOrdered By: Peter Sosa on 77-52-8606Yiyxizovxuu [Mass/Vol]204 mg/eG994-319BerazlidnSt. Mary'S [facility], [facility] CampusComment on above:Chol less than 200 mg/dl low risk Chol 201-239 mg/dl borderline risk Chol 240 mg/dl and greater high riskCholesterol in LDL Calc [Mass/Vol]Ordered By: Peter Sosa on 30-70-2542Ownmitmppwz in LDL [Mass/Vol]129 mg/dL0-100 [facility] CampusComment on above:LDL ATP III CLASSIFICATION LDL less than 100 mg/dL Optimal LDL 100-129 mg/dL Near or above optimal LDL 130-159 mg/dL Borderline high LDL 160-189 mg/dL High LDL greater than 189 mg/dL Very highCholesterol in VLDL Calc [Mass/Vol]Ordered By: Peter Sosa on 18-35-5490Hntcdkaxqwn in VLDL [Mass/Vol]20 mg/dLSt. Mary'S Medical [facility], [place] CampusCreatinine [Mass/volume] in UrineOrdered By: Peter Sosa on 69-22-4139Ppkrtakbas (U) [Mass/Vol]185.2 mg/dLSt. Mary'S Medical Center, [facility] CampusComment on above:No reference range establishedCreatinine and Glomerular filtration rate.predicted panel (S/P/Bld)Ordered By: Peter Sosa on 64-35-0535Vnblnioclh [Mass/Vol]1.31 mg/dL0.44-1.03[facility] CampusEosinophils Auto (Bld) [#/Vol]Ordered By: Peter Sosa on 05-21-2022 Eosinophils (Bld) [#/Vol]0.3 10*3/uL0.0-0.45[facility] Eosinophils/100 WBC Auto (Bld)Ordered By: Peter Sosa on 05-21-2022 Eosinophils/100 WBC (Bld)3.4 %.[facility] CampusErythrocyte distribution width Auto (RBC) [Ratio]Ordered By: Peter Sosa on 05-21-2022 Erythrocyte distribution width (RBC) [Ratio]14.8 %11.9-15.3FAkron Children's HospitalEstimated glomerular filtration rate (GFR) non- Ordered By: Peter Sosa on 59-43-1458PZK/1.73 sq M.predicted among non-blacks MDRD (S/P/Bld) [Vol rate/Area]41 mL/MinSt. Mary'S Medical Center, [place] CampusFolate [Mass/volume] in Serum or PlasmaOrdered By: Peter Sosa on 35-54-9946Kzoptb [Mass/Vol]ng/mL>5.9St[facility] CampusComment on above:Folate reference range: >5.9 ng/ml The WHO technical consultation on folate and vitamin b12 deficiencies has determined that folate concentrations less than 4 ng/ml are considered deficient.Globulin Calc (S) [Mass/Vol]Ordered By: Peter Sosa on 40-87-0375Dtipwxbk (S) [Mass/Vol]2.7 g/dLSt. Mary'S Medical Center, [place] CampusHematocrit Auto (Bld) [Volume fraction]Ordered By: Peter Sosa on 92-66-9540Bbfehvsdvj (Bld) [Volume fraction]39.9 %34.0-46.4FAkron Children's HospitalLaboratory - Chemistry and Chemistry - challengeOrdered By: Peter Sosa on 85-83-8031Feoqqgmbw (Vitamin B12) [Mass/Vol]384 pg/qI313-205NbyzpjyipSt. Mary'S Medical [facility], [facility] CampusLaboratory - Hematology and Cell countsOrdered By: Peter Sosa on 63-27-0962Zzfwjabrf RBC/100 WBC (Bld) [Ratio]0.1 %0-0.5 [facility] CampusLymphocytes Auto (Bld) [#/Vol]Ordered By: Peter Sosa on 23-06-8415Kkyoqrxuswi (Bld) [#/Vol]1.9 10*3/uL1.00-4.8 [facility] CampusLymphocytes/100 WBC Auto (Bld)Ordered By: Peter Sosa on 75-72-6404Tfcdixjwpcq/100 WBC (Bld)22.6 %.[facility] Auto (RBC) [Entitic mass]Ordered By: Peter Sosa on 68-59-9389FAJ (RBC) [Entitic mass]28.2 pg24.7-34.3FAkron Children's HospitalMCHC Auto (RBC) [Mass/Vol]Ordered By: Peter Sosa on 06-89-5497ZLZC (RBC) [Mass/Vol]32.0 g/dL32.0-35.0[facility] CampusMCV Auto (RBC) [Entitic vol]Ordered By: Peter Sosa on 56-01-1624PIV (RBC) [Entitic vol]87.9 rH99-151VytufmndwSt. Mary'S Medical Center, [place] CampusMonocytes Auto (Bld) [#/Vol] Ordered By: Peter Sosa on 04-28-4739Svhrnruqg (Bld) [#/Vol]0.7 10*3/uL 0.0-0.8[facility] CampusMonocytes/100 WBC Auto (Bld)Ordered By: Peter Sosa on 79-96-7860Htwajxbhc/100 WBC (Bld)8.4 %.[facility] CampusNeutrophils Auto (Bld) [#/Vol]Ordered By: Peter Sosa on 08-03-9656Vmmqcooujtu (Bld) [#/Vol]5.5 10*3/uL1.8-7.7FAkron Children's HospitalNeutrophils/100 WBC Auto (Bld)Ordered By: Peter Sosa on 05-21-2022 Neutrophils/100 WBC (Bld)64.8 %.[facility] CampusNo Panel InformationOrdered By: Peter Sosa on 98-32-968611437546-Pfvcmdi Vitamin D Total 50.4 ng/pK62-654JskfttoeqSt. Mary'S Medical Center, [place] CampusComment on above:VITAMIN D STATUS 25(OH)VITAMIN D RANGE (ng/mL) Deficient <20 Insufficient 20 to <30 Sufficient 30 to 100 Reference: Lubna MF,Aleida NC, Tavo EDWARDS, et al. Evaluation,treatment, and prevention of vitamin D deficiency; an Endocrine Society clinical practice guideline. JCEM. 2010; 96(7):1911-30.Estimated GFR ()49 mL/MinSt. Mary'S Medical Center, Iront[place] CampusComment on above: GFR estimated reference range: According to KDOQI guidelines, <60 ml/min/1.73m2 is sufficient todiagnose a patient with chronic kidney disease.Pharmacy Creatinine Clearance (ChemN/[facility] HospitalPlatelet mean volume Auto (Bld) [Entitic vol]Ordered By: Peter Sosa on 36-04-3029Asfordcn mean volume (Bld) [Entitic vol]8.4 fL6.3-10.7FAkron Children's Hospital Platelets Auto (Bld) [#/Vol]Ordered By: Peter Sosa on 99-75-9809Podbcvtzo (Bld) [#/Vol]240 10*3/qB756-936LmoxcdtmwSt. Mary'S Medical Center, [place] CampusProtein [Mass/volume] in Serum or PlasmaOrdered By: Peter Sosa on 92-56-2534Hsviubo [Mass/Vol]6.4 g/dL6.1-7.9St[facility] CampusRBC Auto (Bld) [#/Vol] Ordered By: Peter Sosa on 29-48-1541YXX (Bld) [#/Vol]4.54 10*6/uL3.60-5.00 Mercy Hospitalerum or plasma alanine aminotransferase measurement without P-5'-P (enzymatic activiOrdered By: Peter Sosa on 18-80-4391QRG No additional P-5'-P [Catalytic activity/Vol]27 U/H63-10BccgysgdbMercy Hospitalerum or plasma albumin/globulin mass ratioOrdered By: Peter Sosa on 05-84-7810Uhbzaxh/Globulin [Mass ratio]1.4 {ratio}Mercy Hospitalerum or plasma alkaline phosphatase measurement (enzymatic activity/volume)Ordered By: Peter Sosa on 49-74-3152TXQ [Catalytic activity/Vol]59 U/X67-34UrymcgztdMercy Hospitalerum or plasma aspartate aminotransferase measurement (enzymatic activity/volume)Ordered By: Peter Sosa on 49-07-0604MUG [Catalytic activity/Vol]26 U/P25-30PjyohnrgxMercy Hospitalerum or plasma calcium measurement (mass/volume)Ordered By: Peter Sosa on 45-72-6811Sefzgse [Mass/Vol]9.5 mg/dL8.2-10.2FOhioHealth Southeastern Medical Centererum or plasma chloride measurement (moles/volume) Ordered By: Peter Sosa on 44-75-9299Abwhckql [Moles/Vol]102 mmol/L95-114 Mercy Hospitalerum or plasma glucose measurement (mass/volume)Ordered By: Peter Sosa on 14-81-9275Zvppikz [Mass/Vol]93 mg/dL 70-100St. [facility] CampusComment on above:ADA recommended reference range Random Glucose Reference Range is dependent on time and content of last meal. Glucose of more than 200 mg/dL in a nonstressed, ambulatory subject supports the diagnosis of Diabetes Mellitus.Serum or plasma high density lipoprotein (HDL) cholesterol measurementOrdered By: Peter Sosa on 90-64-9590Senxxdasvas in HDL [Mass/Vol]55 mg/iV15-79EtmphzpneSt. Mary'S Medical Center, [place] CampusComment on above:HDL CHOL ATP-III CLASSIFICATION Cardiovascular Risk HDL > or equal to 60 mg/dL LOW HDL < 40 mg/dL HIGHSerum or plasma potassium measurement (moles/volume)Ordered By: Peter Sosa on 35-32-8795Ueecgkifi [Moles/Vol]4.2 mmol/L3.5-5.1FOhioHealth Southeastern Medical Centererum or plasma sodium measurement (moles/volume)Ordered By: Peter Sosa on 82-37-7117Higbek [Moles/Vol]140 mmol/P125-602OoghekhtfMercy Hospitalerum or plasma total bilirubin measurement (mass/volume) Ordered By: Peter Sosa on 10-10-9989Bwphfcyvi [Mass/Vol]0.4 mg/dL0.3-1.2 [facility] Hospitalerum or plasma total carbon dioxide measurement (moles/volume)Ordered By: Peter Sosa on 28-39-3528HK3 [Moles/Vol]29.5 mmol/L22.0-30.0Mercy Hospitalerum or plasma total cholesterol/high density lipoprotein (HDL) cholesterol mass ratOrdered By: Peter Sosa on 30-83-3792Onyspuhxqeo.total/Cholesterol in HDL [Mass ratio] 3.7 {ratio}<5.0Mercy Hospitalerum or plasma urea nitrogen measurement (mass/volume)Ordered By: Peter Sosa on 25-69-3244Xpgr nitrogen [Mass/Vol]30 mg/dL9-23St[facility] CampusTS DL <= 0.005 mIU/L Qn Ordered By: Peter Sosa on 53-05-1588TVQ Qn2.03 m[IU]/L0.45-5.33[facility] CampusThyroxine (T4) free [Mass/volume] in Serum or Plasma Ordered By: Peter Sosa on 93-01-9666Lxwc T4 [Mass/Vol]0.96 ng/dL0.61-1.12 [facility] CampusTriglyceride [Mass/volume] in Serum or Plasma Ordered By: Peter Sosa on 05-05-2580Tkbdouiuwamn [Mass/Vol]102 mg/qW13-169 [facility] CampusComment on above:TRIG ATP III CLASSIFICATION TRIG less than 150 mg/dL Normal TRIG 150-199 mg/dL Borderline high TRIG 200-500 mg/dL High TRIG greater than 500 mg/dL Very high Standard traceable to the Center for Disease Conrtrol and Prevention (CDC) test method.Triiodothyronine (T3) Free [Mass/volume] in Serum or PlasmaOrdered By: Peter Sosa on 35-04-3278Stzm T3 [Mass/Vol]3.88 pg/mL2.50-3.90[facility] CampusUrine microalbumin measurement with detection limit of 20 mg/L or less (mass/volume)Ordered By: Peter Sosa on 85-34-5928Kybwrww DL <= 20 mg/L (U) [Mass/Vol]mg/dL0.0-1.8[facility] CampusUrine microalbumin/creatinine mass ratioOrdered By: Peter Sosa on 05-21-2022 Albumin/Creatinine DL <= 20 mg/L (U) [Mass ratio]TNPSt. Mary'S Medical Center, [facility]ont[place] CampusComment on above:Test not performedUS EXT NON VASC [...] Electronically authenticated by: ANUSHA AGUERO Date: 2022-05-08 16:18NoMiddletown HospitalC3 and C4 COMPLEMENTon 79-42-7952Tratsoqwvs C3, Wvxqd944 mg/dL Critically qcps91-754Mkc [facility] HospitalComment on above:Performed By: #### SEDR #### [facility] [address] [address] [address] Kyree NealComplement C4, Serum35 mg/jZSufkbx99-27Eve [facility] Comment on above:Performed By: #### SEDR #### [facility] [address] [address] [address] Kyree NealCOMPLEMENT TOTAL (CH50)on 97-85-0936Naixqmlcpu, Total (CH50)>60 Normal>41The [facility] Miamisburgment on above:Result Comment: Age Male Female 1 [...] out of range values.Performed By: #### CH50T ####[facility] [address] [address]Dr. Kyree NealRNP ANTIBODIES on 64-04-6997FGL Antibodies<0.0Ndybkz2.0-0.9The [facility] HospitalComment on above:Performed By: #### SEDR #### [facility] [address] [address] [address] Kyree Polk AUTO DIFFon 92-86-9044SIKA #0.1 103/ulNormal0.0-0.1The [facility] HospitalComment on above:Performed By: #### CBC ####[facility] [address] [address]Dr.Kyree NealBasophils/100 WBC (Bld)0.9 %Normal0.2-2.0The [facility] Miamisburgment on above:Performed By: #### CBC ####[facility] [address] [address]Dr.Kyree ChangEO #0.4 103/ulNormal0.0-0.7The [facility] HospitalComment on above:Performed By: #### CBC ####[facility] [address] [address]Dr.Kyree ChangEosinophils/100 WBC (Bld)5.4 %Normal 0.9-7.0The [facility] Miamisburgment on above:Performed By: #### CBC ####[facility] [address] [address]Dr.Kyree Neal Erythrocyte distribution width (RBC) [Ratio]13.9 %Rfddvf75.0-15.0The [facility] HospitalComment on above:Performed By: #### CBC ####[facility] Xnouq[address] [place], [place] [address]Dr.Kyree NealHematocrit (Bld) [Volume fraction]40.9 %Jslbuu10.0-48.0The [facility] HospitalComment on above:Performed By: #### CBC ####[facility] [address]ag[address] [place], [place] [address]Dr.Kyree NealHemoglobin (Bld) [Mass/Vol]12.8 g/dL Bnvnyo10.0-16.0The [facility] HospitalComment on above:Performed By: #### CBC ####[facility] [address] [place], [place] [address]Dr. Aaliyahlan ChangIG #0.03 10e3/ulNormal0.00-0.03The [facility] HospitalComment on above: Performed By: #### CBC ####[facility] N[address]lucif[address] [place], [place] [address]Dr.Kyree ChangIG %0.4 %Normal0.0-0.5The [facility] HospitalComment on above:Performed By: #### CBC ####[facility] [address] [place], [place] [address]Dr.Kyree NealLYMPH #1.7 103/ulNormal1.2-3.8The [facility] HospitalComment on above:Performed By: #### CBC ####[facility] Lphfuwdpjd[address] [place], [place] [address]Dr. Kyree NealLymphocytes/100 WBC (Bld)21.2 %Grnysc58.5-60.0The [facility] Comment on above:Performed By: #### CBC ####[facility] [address]mucdvsxfc[address] [place], [place] [address]Dr.Kyree NealMANUAL DIFF REQNONormalThe [facility] HospitalComment on above:Performed By: #### CBC ####[facility] Fvhprvhal[address] [place], [place] [address]Dr.Kyree NealMCH (RBC) [Entitic mass]28.2 spLruwhk81.7-34.0The [facility] HospitalComment on above: Performed By: #### CBC ####[facility] [address] [place], [place] [address]Dr.Kyree ÁngelHC (RBC) [Mass/Vol]31.3 g/dLNormal 29.9-35.2The [facility] HospitalComment on above:Performed By: #### CBC ####[facility] Fsdsuchnmn[address] [place], [place] [address]Dr. Kyree NealMCV (RBC) [Entitic vol]90.1 wIPaduin83.0-99.0The [facility] Comment on above:Performed By: #### CBC ####[facility] [address] [place], [place] [address]DrArvind NealMONO #0.6 103/ulNormal0.3-0.8 The [facility] HospitalComment on above:Performed By: #### CBC ####[facility] Cxyhqkzlex[address] [place], [place] [address]Dr.Aaliyahjeff Neal Monocytes/100 WBC (Bld)8.2 %Normal1.7-12.0The [facility] HospitalComment on above: Performed By: #### CBC ####[facility] U[address]xxdg[address] [place], [place] [address]Dr.Kyree NealNEUT #5.0 103/ulNormal1.4-6.5The [facility] HospitalComment on above:Performed By: #### CBC ####[facility] Zxocv[address]vx[address] [place], [place] [address]Dr.Kyree NealNeutrophils/100 WBC (Bld)63.9 %Nxfgkr36.0-75.0The [facility] HospitalComment on above:Performed By: #### CBC ####[facility] Qprvowvozo[address] [place], [place] [address]DrArvind NealPlatelet mean volume (Bld) [Entitic vol]9.7 fLNormal9.5-13.5 The [facility] HospitalComment on above:Performed By: #### CBC ####[facility] I[address] [place], [place] [address]Dr.Kyree NealPLT245 103/klAytlmt827-790Cnh [facility] HospitalComment on above:Performed By: #### CBC ####[facility] [address] [address]DrDulce NealRBC4.54 106/ulNormal4.20-5.40The [facility] HospitalComment on above: Performed By: #### CBC ####[facility] [address] [address]Dr.Kyree NealWBC7.8 103/ulNormal4.0-11.0The [facility] HospitalComment on above:Performed By: #### CBC ####[facility] [address] [address]DrArvind NealCRPon 45-25-2739ISA9.1 mg/dLCritically high<=1.0The [facility] on above: Performed By: #### HH #### [facility] [address] [place] [address] Dr. Kyree Hall 14(COMP METB)on 69-90-5953Vlfuwal [Mass/Vol]3.5 g/dLNormal 3.4-5.0The [facility] on above:Performed By: #### HH #### [facility] [address] [place] [address] Dr. Kyree NealAlbumin/Globulin [Mass ratio]0.9 {ratio}NormalThe [facility] on above:Performed By: #### HH #### [facility] [address] [place] [address] Dr. Kyree Rizo [Catalytic activity/Vol]64 U/ULpclkm98-359Qrg [facility] HospitalComva medical center on above:Performed By: #### HH #### [facility] [address] [place] [address] Dr. Kyree Perrin [Catalytic activity/Vol]29 U/AQepuly11-88Rtx [facility] HospitalComment on above:Performed By: #### HH #### [facility] [address] [place], [place] [address] Dr. Kyree Shaw gap [Moles/Vol]10.5 mmol/LNormalSelect [facility] [place] Comment on above:Performed By: #### HH #### [facility] [address] [address] [address] Kyree NealAST [Catalytic activity/Vol]20 U/WHygxgl79-86Lza [facility] HospitalComment on above:Performed By: #### HH #### [facility] [address] [address] [address] Kyree NealBilirubin [Mass/Vol]0.4 mg/dLNormal0.2-1.0The [facility] Comment on above:Performed By: #### HH #### [facility] [address] [place] [address] Dr. Kyree NealCalcium [Mass/Vol]9.4 mg/dLNormal8.5-10.1[facility] Comment on above:Performed By: #### HH #### [facility] [address] [place] [address] Dr. Kyree NealChloride [Moles/Vol]106 mmol/KKeqlce65-809JgcSelect Medical Specialty Hospital [facility] [place] Comment on above:Performed By: #### HH #### [facility] [address] [place] [address] Dr. Kyree NealCO2 [Moles/Vol]30.4 mmol/QYnbmbq01.0-32.0[facility] Comment on above:Performed By: #### HH #### [facility] [address] [place] [address] Dr. Kyree NealCreatinine [Mass/Vol]1.03 mg/dLCritically high0.55-1.02[facility] - YoungstownComment on above:Performed By: #### HH #### [facility] [address] [place] [address] Dr. Kyree CooperGFR-AF SAO TOMEAN>60Normal>=60The [facility] HospitalComment on above:Performed By: #### HH #### [facility] [address] [place] [address] Dr. Yilan ChangEGFR-NON AF IELPKNOT40 mL/min/1.14d8Mouvvfthbk low>=60The [facility] HospitalComment on above:Performed By: #### HH #### [facility] [address] [address] [address] Kyree NealGlobulin (S) [Mass/Vol]3.8 g/dLNormWayne HealthCare Main CampusComment on above:Performed By: #### HH #### [facility] [address] [address] [address] Kyree NealGlucose [Mass/Vol]131 mg/dLCritically tvhw69-005Wkr [facility] HospitalComment on above:Performed By: #### HH #### [facility] [address] [place] [address] Dr. Kyree NealPotassium [Moles/Vol]3.9 mmol/LNormal3.5-5.1The [facility] Comment on above:Performed By: #### HH #### [facility] [address] [place] [address] Dr. Kyree NealProtein [Mass/Vol]7.3 g/dLNormal6.4-8.2The [facility] Comment on above:Performed By: #### HH #### [facility] [address] [place] [address] Dr. Kyree NealSodium [Moles/Vol]143 mmol/RPwyqlq680-650Sqi [facility] Comment on above:Performed By: #### HH #### [facility] [address] [address] [address] Kyree NealUrea nitrogen [Mass/Vol]24.0 mg/dLCritically high7.0-18.0The [facility] HospitalComment on above:Performed By: #### HH #### [facility] [address] [place] [address] Dr. Kyree Douglas nitrogen/Creatinine [Mass ratio]23.3 mg/mgNoMiddletown HospitalComment on above:Performed By: #### HH #### [facility] [address] [place] [address] Dr. Kyree Monson RATE WESTERGRENon 78-66-8383DPJ RATE40 mm/hrCritically high <=30Cherrington Hospitalment on above:Performed By: #### HH #### [facility] [address] [address] [address] Kyree Brown RANDOM W/MICROSCOPICon 50-53-7164SQITPSVMKJQH SEENNormalNONE SEENSelect Medical Specialty Hospital - YoungstownComment on above:Performed By: #### UAMIC #### [facility] [address] [address] [address] yKree NealBilirubin Ql (U)NegativeNormalNEGATIVENationwide Children'S Hospital on above:Performed By: #### UAMIC #### [facility] [address] [address] [address] Kyree NealCASTIRO SEENNormalNONE SEENSelect Medical Specialty Hospital - YoungstownComment on above:Performed By: #### UAMIC #### [facility] [address] [address] [address] Kyree Donovanarity (U)CLEARNormalCLEARSelect Medical Specialty Hospital - YoungstownComment on above: Performed By: #### UAMIC #### [facility] [address] [address] [address] Kyree Damico (U)LT. YELLOWNormalYMercy Health West HospitalComment on above:Performed By: #### UAMIC #### [facility] [address] [address] [address] Kyree NealCrystals LM Nom (Urine sed)NONE SEENNormalNONE SEENSelect Medical Specialty Hospital - YoungstownComment on above:Performed By: #### UAMIC #### [facility] [address] [address] [address] Adorno ChangEpithelial cells LM Ql (Urine sed)MODERATEAbnormalNONE SEEN /RARE The [facility] HospitalComment on above:Performed By: #### UAMIC #### [facility] [address] [address] [address] Kyree Schillingose Ql (U)NegativeNormalNEGATIVESelect Medical Specialty Hospital - YoungstownComment on above:Performed By: #### UAMIC #### [facility] [address] [address] [address] Kyree NealHemoglobin Ql (U)NegativeNormalNEGATIVESelect Medical Specialty Hospital [facility] [place] Comment on above:Performed By: #### UAMIC #### [facility] [address] [address] [address] Kyree NealKetones Ql (U)NegativeNormalNEGATIVESelect Medical Specialty Hospital - YoungstownComment on above:Performed By: #### UAMIC #### [facility] [address] [address] [address] Kyree NealLEUKOCYTESNegativeNormalNEGATIVESelect Medical Specialty Hospital - YoungstownComment on above:Performed By: #### UAMIC #### [facility] [address] [place] [address] Dr. Kyree NealMUCOUSNONE SEENNormalNONE SEENSelect Medical Specialty Hospital - YoungstownComment on above:Performed By: #### UAMIC #### [facility] [address] [place] [address] Dr. Kyree NealNitrite Ql (U)NegativeNormalNEGATIVESelect Medical Specialty Hospital - YoungstownComment on above:Performed By: #### UAMIC #### [facility] [address] [place] [address] Dr. Kyree NealpH (U)5.5 [pH]Normal5-9[facility] Hospital - YoungstownComment on above: Performed By: #### UAMIC #### [facility] [address] [place] [address] Dr. Kyree NealRBCNONE SEENAbnormal0-2The [facility] HospitalComment on above: Performed By: #### UAMIC #### [facility] [address] [address] [address] Kyree NealSPEC GRAVITY1.390Oziyzz1.005-<=1.025The [facility] Community HospitalComment on above:Performed By: #### UAMIC #### [facility] [address] [place] [address] Dr. Kyree NealUA PROTEINNegativeNormalNEGATIVE/ TRACEThe [facility] Comment on above:Performed By: #### UAMIC #### [facility] [address] [address] [address] Kyree Friedman Qn (U)0.2 {Herrera'U}/dLNormal0.2 - 1.0The [facility] Community HospitalComment on above:Performed By: #### UAMIC #### [facility] [address] [address] [address] Kyree LedesmaBCNONE SEENNormalNONE SEENThe [facility] HospitalComment on above: Performed By: #### UAMIC #### [facility] [address] [address] [address] Kyree Reddy 39-19-3441QGU8.9 mg/dLNormal<=1.0[facility] [place] Comment on above:Performed By: #### CRP ####[facility] [address] [address].Yilan Monson RATE WESTERGRENon 34-79-3891QOE RATE39 mm/hrCritically high<=30The [facility] HospitalComment on above:Performed By: #### SEDR #### [facility] [address] [address] [address] Kyree NealThe [facility] Metabolic PanelOrdered By: Reynaldo Trejo on 04-16-2022 Chloride [Moles/Vol]100 mmol/I20-519GbogwhlvtSt. Mary'S Medical Center, Ironton CampusGlucose [Mass/Vol]129 mg/lJ36-118DlprrucruSt. Mary'S Medical Center, Ironton CampusComment on above:ADA recommended reference range Random Glucose [...] subject supports the diagnosisof Diabetes Mellitus.Sodium [Moles/Vol]140 mmol/O118-787TjjlrsplnSt. Mary'S Medical Center, Iront[facility] CampusUrea nitrogen [Mass/Vol]27 mg/dL9-23[facility] CampusBasic Metabolic Panelon 87-98-8390Niydyss [Mass/Vol]9.7979056 mg/dLNormal8.2-10.2 mg/dLNoboone hospital center Motally Other CO2 [Moles/Vol]29.45984504 mmol/LUxfgph34.0-30.0 mmol/LNBroadchoice Other Creatinine [Mass/Vol]1.05272904 mg/dLHigh0.44-1.03 mg/dLNoboone hospital center Motally Other Potassium [Moles/Vol]3.36415031 mmol/LNormal3.5-5.1 mmol/LNBroadchoice Other Basic Metabolic Kkadu84Axtpi Motally Other Creatinine and Glomerular filtration rate.predicted panel (S/P/Bld)Ordered By: Reynaldo Trejo on 20-58-0069Vlhudohrcf [Mass/Vol]1.06 mg/dL0.44-1.03[facility]ont[facility] CampusEstimated glomerular filtration rate (GFR) non- AmericanOrdered By: Reynaldo Trejo on 30-03-4821JBH/1.73 sq M.predicted among non-blacks MDRD (S/P/Bld) [Vol rate/Area]52 mL/MinSt. Mary'S Medical Center, Ironton CampusNo Panel InformationOrdered By: Reynaldo Trejo on 01-93-9250Ganrivhmv GFR ()> 60 mL/MinSt. Mary'S Medical Center, Ironton CampusComment on above:GFR estimated reference range: According to KDOQI guidelines, <60 ml/min/1.73m2 is sufficient todiagnose a patient with chronic kidney disease.Pharmacy Creatinine Clearance (ChemN/[facility] Hospitalerum or plasma calcium measurement (mass/volume)Ordered By: Reynaldo Trejo on 53-75-5816Ytbvnyn [Mass/Vol]9.7 mg/dL8.2-10.2FOhioHealth Southeastern Medical Centererum or plasma potassium measurement (moles/volume)Ordered By: Reynaldo Trejo on 19-48-3373Sxztbkrpv [Moles/Vol]3.8 mmol/L3.5-5.1FOhioHealth Southeastern Medical Centererum or plasma total carbon dioxide measurement (moles/volume)Ordered By: Reynaldo Trejo on 25-89-6424VC5 [Moles/Vol]29.6 mmol/L 22.0-30.0[facility] CampusAlbumin [Mass/volume] in Serum or PlasmaOrdered By: Megan Epps on 64-61-6172Kagvuni [Mass/Vol]3.6 g/dL3.2-5.5 [facility] CampusBasophils Auto (Bld) [#/Vol]Ordered By: Megan Epps on 67-07-9497Ttspughub (Bld) [#/Vol]0.1 10*3/uL0.0-0.2FAkron Children's HospitalBasophils/100 WBC Auto (Bld)Ordered By: Megan Epps on 69-31-2502Nykojsjyf/100 WBC (Bld)0.8 %.[facility] CampusBlood hemoglobin measurement (mass/volume)Ordered By: Megan Epps on 04-09-2022 Hemoglobin (Bld) [Mass/Vol]12.8 g/dL11.8-15.4FAkron Children's Hospital Blood leukocytes automated count (number/volume)Ordered By: Megan Epps on 56-70-2242ADK (Bld) [#/Vol]9.5 10*3/uL4.5-11.0[facility] CT biopsyOrdered By: Megan Epps on 38-75-9731Igglzpavlkc [Mass/Vol]242 mg/dL 180-380St. [facility] CampusCreatinine and Glomerular filtration rate.predicted panel (S/P/Bld)Ordered By: Megan Epps on 32-79-9600Nkjucnwjax [Mass/Vol]1.06 mg/dL0.44-1.03[facility] CampusEosinophils Auto (Bld) [#/Vol]Ordered By: Megan Epps on 26-14-1381Jzelbwjofgt (Bld) [#/Vol]0.5 10*3/uL0.0-0.45St. [facility] CampusEosinophils/100 WBC Auto (Bld) Ordered By: Megan Epps on 85-48-4320Yatrmwgzzhu/100 WBC (Bld)5.5 %.[facility] CampusErythrocyte distribution width Auto (RBC) [Ratio]Ordered By: Megan Epps on 54-11-1457Fqbnuqekhzq distribution width (RBC) [Ratio]14.6 %11.9-15.3FAkron Children's HospitalEstimated glomerular filtration rate (GFR) non- AmericanOrdered By: Megan Epps on 65-78-8635RIV/1.73 sq M.predicted among non-blacks MDRD (S/P/Bld) [Vol rate/Area]52 mL/MinSt. Mary'S Medical Center, Iront[place] CampusFerritin [Mass/volume] in Serum or PlasmaOrdered By: Megan Epps on 98-98-9320Ioomcgof [Mass/Vol]383.1 ng/gQ80-279.8[facility]. [facility] CampusFolate [Mass/volume] in Serum or PlasmaOrdered By: Megan Epps on 36-67-2235Varcsv [Mass/Vol]ng/mL>5.9St. [facility]ont[facility] CampusComment on above:Folate reference range: >5.9 ng/ml The WHO technical consultation on folate and vitamin b12 deficiencies has determined that folate concentrations less than 4 ng/ml are considered deficient.Globulin Calc (S) [Mass/Vol]Ordered By: Megan Epps on 12-99-3949Gftjhlcl (S) [Mass/Vol]2.6 g/dLSt. Mary'S Medical Center, Iront[place] CampusHematocrit Auto (Bld) [Volume fraction]Ordered By: Megan Epps on 53-85-8760Jrskuqlvwe (Bld) [Volume fraction]38.4 %34.0-46.4FAkron Children's HospitalIron [Mass/volume] in Serum or PlasmaOrdered By: Megan Epps on 97-48-8602Omow [Mass/Vol]41 ug/bA35-166MxsdtsfooSt. Mary'S Medical Center, [facility] CampusIron binding capacity [Mass/volume] in Serum or PlasmaOrdered By: Megan Epps on 01-41-8290Teux binding capacity [Mass/Vol]339 ug/jX391-519SojhoayiqSt. Mary'S Medical Center, [facility]ont[place] CampusIron saturation [Mass Fraction] in Serum or PlasmaOrdered By: Megan Epps on 94-50-4051Aafq saturation [Mass fraction]12.0 %20-50[facility] CampusLaboratory - Chemistry and Chemistry - challengeOrdered By: Megan Supriya on 85-75-0770Dxnurknnk (Vitamin B12) [Mass/Vol]459 pg/mL 180-914St. [facility] CampusLaboratory - Hematology and Cell counts Ordered By: Megan Epps on 80-43-4540Okwdjfmzz RBC/100 WBC (Bld) [Ratio]0.0 % 0-0.5FAkron Children's HospitalLymphocytes Auto (Bld) [#/Vol]Ordered By: Megan Epps on 63-27-6768Mxolufyyusg (Bld) [#/Vol]2.1 10*3/uL1.00-4.8St. [facility] CampusLymphocytes/100 WBC Auto (Bld)Ordered By: Megan Epps on 83-87-1375Wmvalkdnvkm/100 WBC (Bld)21.7 %.[facility] MCH Auto (RBC) [Entitic mass]Ordered By: Megan Epps on 18-50-3269CYX (RBC) [Entitic mass]29.1 pg24.7-34.3FAkron Children's HospitalMCHC Auto (RBC) [Mass/Vol]Ordered By: Megan Epps on 28-36-0256FYWL (RBC) [Mass/Vol]33.3 g/dL 32.0-35.0St[facility] CampusMCV Auto (RBC) [Entitic vol]Ordered By: Megan Epps on 89-69-3761HVR (RBC) [Entitic vol]87.3 uM03-108AozqcxexjSt. Mary'S Medical Center, Iront[place] CampusMonocytes Auto (Bld) [#/Vol]Ordered By: Megan Epps on 41-27-6156Ynpsimhik (Bld) [#/Vol]0.7 10*3/uL0.0-0.8St. [facility] CampusMonocytes/100 WBC Auto (Bld)Ordered By: Megan Epps on 04-09-2022 Monocytes/100 WBC (Bld)7.2 %.[facility] CampusNeutrophils Auto (Bld) [#/Vol]Ordered By: Megan Epps on 90-13-0233Wilzselfysd (Bld) [#/Vol]6.2 10*3/uL1.8-7.7FAkron Children's HospitalNeutrophils/100 WBC Auto (Bld) Ordered By: Megan Epps on 17-33-7269Ymvyxwbnlzu/100 WBC (Bld)64.8 %.[facility] CampusNo Panel InformationOrdered By: Megan Epps on 59-05-3554Zsxnainra GFR ()> 60 mL/MinSt. Mary'S Medical Center, Ironton CampusComment on above:GFR estimated reference range: According to KDOQI guidelines, <60 ml/min/1.73m2 is sufficient todiagnose a patient with chronic kidney disease.Pharmacy Creatinine Clearance (Chem65.00St. [facility]ont[facility] CampusPlatelet mean volume Auto (Bld) [Entitic vol]Ordered By: Megan Epps on 76-73-8979Ztlrdjew mean volume (Bld) [Entitic vol]8.4 fL6.3-10.7 [facility] CampusPlatelets Auto (Bld) [#/Vol]Ordered By: Megan Epps on 86-24-3605Erijmkisk (Bld) [#/Vol]249 10*3/yV592-803OefsomjvhSt. Mary'S Medical Center, [facility] CampusProtein [Mass/volume] in Serum or PlasmaOrdered By: Megan Epps on 93-90-0856Oksymbq [Mass/Vol]6.2 g/dL6.1-7.9St. [facility] CampusRBC Auto (Bld) [#/Vol]Ordered By: Megan Epps on 50-30-7516HUL (Bld) [#/Vol]4.40 10*6/uL3.60-5.00Mercy Hospitalerum or plasma alanine aminotransferase measurement without P-5'-P (enzymatic activi Ordered By: Megan Epps on 79-02-0993BOW No additional P-5'-P [Catalytic activity/Vol]21 U/C08-82UmthnpdofMercy Hospitalerum or plasma albumin/globulin mass ratioOrdered By: Megan Epps on 04-09-2022 Albumin/Globulin [Mass ratio]1.4 {ratio}Mercy Hospitalerum or plasma alkaline phosphatase measurement (enzymatic activity/volume)Ordered By: Megan Supriya on 21-13-9061ICU [Catalytic activity/Vol]62 U/A77-50DsheqmhjiMercy Hospitalerum or plasma aspartate aminotransferase measurement (enzymatic activity/volume)Ordered By: Megan Supriya on 03-74-0996VEN [Catalytic activity/Vol]21 U/K14-53PjuafpdfaMercy Hospitalerum or plasma calcium measurement (mass/volume)Ordered By: Megan Supriya on 34-40-8451Lrfcvwa [Mass/Vol]9.2 mg/dL8.2-10.2FOhioHealth Southeastern Medical Centererum or plasma chloride measurement (moles/volume)Ordered By: Megan Supriya on 04-09-2022 Chloride [Moles/Vol]101 mmol/Q05-530ElokgeovaMercy Hospitalerum or plasma glucose measurement (mass/volume)Ordered By: Megan Supriya on 04-09-2022 Glucose [Mass/Vol]111 mg/sL64-853CybfuknekSt. Mary'S Medical Center, Ironton CampusComment on above:ADA recommended reference range Random Glucose Reference Range is dependent on time and content of last meal. Glucose of more than 200 mg/dL in a nonstressed, ambulatory subject supports the diagnosis of Diabetes Mellitus.Serum or plasma methylmalonate measurement (moles/volume)Ordered By: Megan Supriya on 16-90-0475Reqsryiotjthrx [Moles/Vol] 291 nmol/L0-378St. [facility], Ironton CampusComment on above:This test was developed and its performance characteristics determined by [facility]. It has not been cleared or approved by the Food and Drug Administration. Performed at: [address] [id number] Senior Officer: Alan Christianson MD, Phone: [phone] or plasma potassium measurement (moles/volume)Ordered By: Megan Supriya on 72-04-6288Iehmqwxcx [Moles/Vol]3.6 mmol/L3.5-5.1FOhioHealth Southeastern Medical Centererum or plasma sodium measurement (moles/volume)Ordered By: Megan Epps on 96-70-7806Pelzph [Moles/Vol]140 mmol/G082-783OswijhrsuMercy Hospitalerum or plasma total bilirubin measurement (mass/volume)Ordered By: Megan Epps on 04-09-2022 Bilirubin [Mass/Vol]0.6 mg/dL0.3-1.2FOhioHealth Southeastern Medical Centererum or plasma total carbon dioxide measurement (moles/volume)Ordered By: Megan Epps on 36-76-8158GK3 [Moles/Vol]26.6 mmol/L22.0-30.0Mercy Hospitalerum or plasma urea nitrogen measurement (mass/volume)Ordered By: Megan Harrisjuanis on 94-38-7660Bgvf nitrogen [Mass/Vol]23 mg/dL9-23St. [facility] CampusPTH INTACTon 01-68-5992CZO, Fzidpn24 pg/vNTadiik29-11Qmh [facility] HospitalComment on above:Performed By: #### PTHINT ####[facility] [address] [address]Dr. Kyree NealHEMOGRAM AND PLATELon 29-93-9182Hdvzwaagpo (Bld) [Volume fraction]39.1 %Izdmvm47.0-48.0The [facility] HospitalComment on above:Performed By: #### HH #### [facility] [address] [address] [address] Kyree NealHemoglobin (Bld) [Mass/Vol]12.4 g/aBYqrsud81.0-16.0The [facility] HospitalComment on above:Performed By: #### HH #### [facility] [address] [address] [address] Kyree Marino (RBC) [Entitic mass]28.7 efPyrhjd65.7-34.0The [facility] HospitalComment on above:Performed By: #### HH #### [facility] [address] [address] [address] Kyree Marino (RBC) [Mass/Vol]31.7 g/nANkdszu90.9-35.2The [facility] HospitalComment on above:Performed By: #### HH #### [facility] [address] [place] [address] Dr. Kyree Marino (RBC) [Entitic vol]90.5 yWNstvkc09.0-99.0The [facility] HospitalComment on above:Performed By: #### HH #### [facility] [address] [place] [address] Dr. Kyree NealPLT242 103/lwHnsubh703-265Ome [facility] HospitalComment on above: Performed By: #### HH #### [facility] [address] [place] [address] Dr. Kyree NealRBC4.32 106/ulNormal4.20-5.40The [facility] HospitalComment on above:Performed By: #### HH #### [facility] [address] [place] [address] Dr. Kyree NealWBC8.6 103/ulNormal4.0-11.0The [facility] HospitalComment on above: Performed By: #### HH #### [facility] [address] [place] [address] Dr. Kyree NealPHOSPHORUSon 38-64-4886Hgusjdsge [Mass/Vol]2.7 mg/dLNormal2.6-4.7 The [facility] HospitalComment on above:Performed By: #### ALISON, BMP #### [facility] [address] [place] [address] Dr. Kyree NealPROF CHEM 8 (BAS METB)on 05-49-6820Idaxh gap [Moles/Vol]11.0 mmol/LNormalThe [facility] HospitalComment on above:Performed By: #### PHOS, BMP #### [facility] [address] [place] [address] Dr. Kyree NealCalcium [Mass/Vol]9.0 mg/dLNormal8.5-10.1The [facility] Comment on above:Performed By: #### PHOS, BMP #### [facility] [address] [place] [address] Dr. Kyree NealChloride [Moles/Vol]104 mmol/QFciyal91-100Omi [facility] Comment on above:Performed By: #### PHOS, BMP #### [facility] [address] [address] [address] Kyree NealCO2 [Moles/Vol]30.6 mmol/IBtwvqu17.0-32.0[facility] Comment on above:Performed By: #### PHOS, BMP #### [facility] [address] [address] [address] Kyree NealCreatinine [Mass/Vol]1.10 mg/dLCritically high0.55-1.02[facility] - YoungstownComment on above:Performed By: #### PHOS, BMP #### [facility] [address] [address] [address] Adorno ChangEGFR-AF SAO TOMEAN=60Normal>=60[facility] - YoungstownComment on above:Performed By: #### PHOS, BMP #### [facility] [address] [place] [address] Dr. Kyree CooperGFR-NON AF WLLFHLWJ43 mL/min/1.11q7Umjcquxdzn low>=60The [facility] HospitalComment on above:Performed By: #### PHOS, BMP #### [facility] [address] [place] [address] Dr. Kyree NealGlucose [Mass/Vol]93 mg/xNFlqecr86-202VnzSelect Medical Specialty Hospital - [place] Comment on above:Performed By: #### PHOS, BMP #### [facility] [address] [address] [address] Kyree NealPotassium [Moles/Vol]3.6 mmol/LNormal3.5-5.1[facility] Comment on above:Performed By: #### PHOS, BMP #### [facility] [address] [address] [address] Kyree NealSodium [Moles/Vol]142 mmol/RQcgswv010-423TcrSelect Medical Specialty Hospital - [place] Comment on above:Performed By: #### PHOS, BMP #### [facility] [address] [place] [address] Dr. Kyree NealUrea nitrogen [Mass/Vol]20.0 mg/dLCritically high7.0-18.0[facility] - YoungstownComment on above:Performed By: #### PHOS, BMP #### [facility] [address] [place] [address] Dr. Kyree NealUrea nitrogen/Creatinine [Mass ratio]18.2 mg/mgCleveland Clinic Euclid HospitalComment on above:Performed By: #### PHOS, BMP #### [facility] [address] [place] [address] Dr. Kyree NealVITAMIN D 25 OHon 62-90-5108XYH D 25-OH45.4 ng/mLNormalSelect Medical Specialty Hospital - YoungstownComment on above:Performed By: #### SEDR #### [facility] [address] [place] [address] Dr. Kyree FrancoT D RANGESSEE BELOWCleveland Clinic Euclid HospitalComment on above: Result Comment: <20 ng/mL Vit D deficient 20 - <30 ng/mL Vit D insufficient 30 - 100 ng/mL Vit D sufficient >100 ng/mL Potential ToxicityPerformed By: #### SEDR #### [facility] [address] [place] [address] Dr. Kyree NealA1C HEMOGLOBINon 83-75-7469XkY4b (Bld) [Mass fraction]6.1 %[employer] [facility] Where Other HbA1c (Bld) [Mass fraction]on 31-15-6585F2U HEMOGLOBIN [employer] [facility] Where Other Office Visit (Cardiology)on 37-75-8151Eazksk-up visit Diagnoses/Problems Assessed Chronic right-sided congestive heart [...] Allergy; Hives; It (more content not included)...NormalUH MnfqxonbjxZ0L HEMOGLOBINon 88-41-7531UpA8k (Bld) [Mass fraction]5.9 %[employer] Other HbA1c (Bld) [Mass fraction]on 29-11-8800L5D HEMOGLOBIN [employer] Other Office Visit (Cardiology)on 58-10-4644Pmnnut-up visit Diagnoses/Problems Assessed Hypotension (458.9) (I95.9) quiescent on midodrine Edema (782.3) (R60.9) For the most part seems chronic No offending medications Intolerant to compression stockings Diet-controlled diabetes mellitus (250.00) (E11.9) CKD (chronic kidney disease), stage III (585.3) (N18.30) Follows routinely [facility] Nephrology - manage diuretic Morbid [...] for leg cramping. Last evaluated by Dr. aCstanon May 2021 and doing well at that [...] tiZANidine HCl - (more content not included)...NormalUH TrafbjvlerI7S HEMOGLOBIN on 88-47-4092IqX6u (Bld) [Mass fraction]6.0 %[employer] Other HbA1c (Bld) [Mass fraction]on 13-47-0258Y2Y HEMOGLOBIN [employer] Other a1c HEMOGLOBINon 04-80-1229SvW9s (Bld) [Mass fraction] 6.0 %[employer] Other HbA1c (Bld) [Mass fraction]on 75-30-1225U0X HEMOGLOBIN [employer] Other MRI L-Ext Joint w/o Contrast RTon 08-84-4601JV Lower extremity joint - right WO contrastEXAMINATION [...] MD 08/03/2018 14:12Transcribed by: BARRON 08/03/2018 14:10Technologist: [facility] CenterCNOVon 85-55-3281MKUNBryrqz Visit (JAMAL) --------RENUKA PADRON ([id number]) 1955 FDate Time Provider Department05/27/18 12:30 PM ITALO ANN During your visit today, we recorded the following information about you: Pulse Respiration Blood pressure Weight 64/minute 16/minute 143/68 120.2 kg Height 1.6 Cece Ann MD 05/27/2018 1:19 PM [facility] InstituteRobunion [facility] Department of CardiovascularMedicineOUTPATIENT VISIT DATE 05/27/18OUTPATIENT VISIT TYPEESTABLISHEDPRIMARY CARE PHYSICIAN:[place] [id number]: [phone]: [phone] COMPLAINT:Patient presents with:Follow UpHISTORY OF PRESENT ILLNESS:Renuka [...] under the care of Dr. Schilling of [facility]. Danika had multiple procedures performed [...] year. She does statethat she was taking cjbt-gxs-dqrlafm diet pills until recently. They were notworking. The patient has chronic complaints of dyspnea and dyspnea onexertion. She has been treated with lisinopril for her blood pressure. TheLasix was used to try to decrease her edema but was not successful. Thepatient and her son seem frustrated with the [facility] were [facility]. By my review of the [...] She may sit in her chair for -88 hours every day. She states that it's [...] - a 2-D echocardiogram performed at the [facility] normal left ventricular systolic function with an ejection fraction of60%. There was no significant valvular disease identified. There was nocomment on diastolic function.02/24/2017 - a 2-D echocardiogram performed at the [facility] low normal to mildly reduced left ventricular systolic function withan ejection fraction of 45-50%. There was minimal concentric left ventricularhypertrophypresent. There was evidence of grade 1 diastolic dysfunction.There was mild mitral regurgitation. No estimate a right ventricular systolicpressure was possible on this study.Stress Evaluations:02/26/2016 - a Lexiscan nuclear stress evaluation at the [facility] a left ventricular ejection fraction of 50% with abnormal septal wallmotion. There was a small defect involving the inferior oh apical wall whichwas fixed. This was felt to likely represent artifact. There was no otherevidence of Lexiscan stress-induced ischemia.02/24/2017 - [facility] systolic function with an ejectionfraction of 48%. There was a moderate sized anterior septal defect which waspartially reversible noted. This was read as suggestive of possiblestress-induced ischemia.Cardiac Catheterizations:07/16/2004- [facility]. There was moderately decreased leftventricular systolic function noted with an ejection fractionof 30%.Moderately elevated right heart pressures and a normal cardiac index werenoted. The patient was continued on Demadex, Diovan, around oh lactone, Coreg3.125 mg twice a day.06/12/2005 - a right and left heart catheterization was performed at [facility] revealing nonobstructive coronary artery disease,left ventricular ejection fraction of 50%, moderate pulmonary hypertension,severely elevated left ventricular end-diastolic pressure, normal cardiacoutput and normal cardiac index. The patient was started on Lasix 40 mg twicea day.02/14/2008 - a right and left heart catheterization was performed at [facility] revealing mild 3 vessel coronary arterydisease, mildly reduced left ventricular systolic function (no ejectionfraction noted on the report), mild mitral regurgitation, mildly elevated leftventricular end-diastolic pressure, mild pulmonary hypertension and a normalcardiac index. No changes were made to the medical regimen.02/28/2013 - a right and left heart catheterization performed at [facility] reveals mild 3 vessel coronary artery disease, mild pulmonaryhypertension, preserved cardiac index and no evidence of cardiac shunt. Thisstudy was performed due to an abnormal stress test and a suspected patentforamen ovale versus ASD on echocardiogram. Medical therapy was recommendedbut not detailed in the report.03/05/2017 - a right and left heart catheterization was performed at [facility] revealing nonobstru ctive coronary artery disease, [...] to the requesting physician by way [facility] or to the requesting physician via U.S. Mail.This document was generated utilizing Scytl dictation. I have reviewed andverified that the contents of the document are accurate with the exception ofminor grammatical, spelling and punctuation errors.CONTACT INFORMATION:Thank you for allowing us to participate in the care of this very pleasantpatient. Please free to contact us if we can be of any further assistance.Italo Ann MD, [facility] and Mechelle DoddTxpartment of Cardiovascular MedicineHarrison Community Hospitalrt and Vascular Institute[address] [address]Vqjhbn: [phone] Referring Provider: PETER SOSA [[id number]]Allergies As of Date: 05/27/2018 Noted Allergy ReactionLATEX [...] by LUC ANN MD on 05/27/18[facility]ja Medical CenterPROESSon [id number] mass concHNO ID: [id number]: Italo Valladares HersheyService: (none)Author Type: PhysicianType: Progress N otesFiled: 05/27/2018 1:19 PMNote Text:Heart and Vascular InstituteTriStar Greenview [facility] Hospital Mechelle Mariscal Department of Cardiovascular MedicineOUTPATIENT VISIT DATE 05/27/18OUTPATIENT VISIT TYPEESTABLISHEDPRIMARY CARE PHYSICIAN:Peter Sosa, DO[address] [place] [address]Tvwcf: [phone]: [phone] COMPLAINT:Patient presents with:Follow UpHISTORY OF [...] evaluated and under the careof Dr. Schilling [facility]. She has had multiple procedures performed [...] this year. She doesstate that shewas taking xgti-ttf-mrqqsrb diet pills until recently. They were notworking. 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 There was no sign ificant valvular disease identified.There was no comment on diastolic function.02/24/2017 - [facility] to mildly reduced left ventricular systolic functionwith an ejection fraction of 45-50%. There was minimal concentric leftventricular hypertrophy present. There was evidence of grade 1 diastolicdysfunction. There was mild mitral regurgitation. No estimate a rightventricular systolic pressure was possible on this study.Stress Debby luations:02/26/2016 - a Lexiscan nuclear stress evaluation at the [facility] revealed a left ventricular ejection fraction of 50% with abnormalseptal wall motion. There was a small defect involving the inferior ohapical wall which was fixed. This was felt to likely represent artifact.There was no other evidence of Lexiscan stress-induced ischemia.02/24/2017 - a Lexiscan nuclear stress evaluation at the [facility] revealed mildly diminished left ventricular systolic function withan ejection fraction of 48%. There was a moderate sized anterior septaldefect which was partially reversible noted. This was read as suggestiveof possible stress-induced ischemia.Cardiac Catheterizations:07/16/2004 - a cardiac catheterization performed at the [facility] [place] revealed normalcoronary arteries. There was moderately decreasedleft ventricular systolic function noted with an ejection fraction of 30%. Moderately elevated right heart pressures and a normal cardiac index werenoted. The patient was continued on Demadex, Diovan, around oh lactone,Coreg 3.125 mg twice a day.06/12/2005 - a right and left heart catheterization was performed at [facility] revealing nonobstructive coronary arterydisease, left ventricular ejection fraction of 50%, moderate pulmo naryhypertension, severely elevated left ventricular end-diastolic pressure,normal cardiac output and normal cardiac index. The patient was startedon Lasix 40 mg twice a day.02/14/2008 - a right and left heart catheterization was performed at [facility] revealing mild 3 vessel coronaryartery disease, mildly reduced left ventricular systolic function (noejection fraction noted on the report), mild mitral regurgitation, mildlyelevated left ventricular end-diastolic pressure, mild pulmonaryhypertension and a normal cardiac index. No changes were made to themedical regimen.02/28/2013 - a right and left heart catheterization performed at [facility] reveals mild 3 vessel coronary artery disease, mildpulmonary hypertension, preserved cardiac index and no evidence of cardiacshunt. This study was performed due to an abnormal stress test and asuspected patent foramen ovale versus ASD on echocardiogram. Medicaltherapy was recommended but not detailed in the report.03/05/2017 - a right and left heart catheterization was performed at [facility] revealing nonobstructive coronary artery disease,mildly reduced [...] higher.Blood pressure better today.5. Pulmonary HTN ([facility]) - ICD9: 416.8, ICD10: I27.2, diagnosed by [...] Class III, BMI 40-49.9 (morbid obesity) ([facility]) - ICD9: 278.01,ICD10: E66.0111. Preoperative cardiovascular evaluation [...] to the requesting physician by way ofsh[facility] or to the requesting physician via U.S. Mail.This document was generated utilizing [employer]. I have reviewedand verified that the contents of the document are accurate with theexception of minor grammatical, spelling and punctuation errors.CONTACT INFORMATION:Thank you for allowing us to participate in the care of this very pleasantpatient. Please free to contact us if we can be of any furtherassistance.Italo Ann MD, [facility] and Mechelle DoddHarborview Medical Centerment of Cardiovascular MedicineHarrison Community Hospitalrt and Vascular Institute[address] [address]Hsotvh: [phone] [facility] Medical CenterCNOVon [id number] Visit (CARDERIC) --------RENUKA PADRON ([id number]) 1955 FDate Time Provider Department04/08/18 12:30 PM ITALO ANN During your visit today, we recorded the following information about you: Pulse Respiration Blood pressure Weight 75/minute 18/minute 163/70 117 kg Height 1.6 Cece Ann MD 04/08/2018 12:59 PM [facility] and Vascular [facility] and Mechelle Dodd Department of Cardiovascular MedicineOUTPATIENT VISIT DATE 04/08/18OUTPATIENT VISIT TYPEESTABLISHEDPRIMARY CARE PHYSICIAN:Peter Sosa DO[address] [place] [address]Zmaoc: [phone]: [phone] COMPLAINT:Patient presents with:Follow UpHISTORY OF PRESENT ILLNESS:Renuka [...] and under the care of Dr. Schilling [facility]. Danika had multiple procedures performed which [...] this year. She does statethat she wastaking ertv-zaf-tzkcowu diet pills until recently. They were notworking. The patient has chronic complaints of dyspnea and dyspnea onexertion. She has been treated with lisinopril for her blood pressure. TheLasix was used to try to decrease her edema but was not successful. Thepatient and her son seem frustrated with the [facility]. By my review of the [...] She may sit in her chair for wxruebs00-38 hours ev dave day. She states that [...] - [facility] function with an ejection fraction of60%. There was no significant valvular disease identified. There was nocomment on diastolic function.02/24/2017 - [facility] to mildly reduced left ventricular systolic function withan ejection fraction of 45-50%. There was mi nimal concentric left ventricularhypertrophy present. There was evidence of grade 1 diastolic dysfunction.There was mild mitral regurgitation. No estimate a right ventricular systolicpressure was possible on this study.Stress Evaluations:02/26/2016 - [facility] Lexiscan [facility] ejection fraction of 50% with abnormal septal wallmotion. There was a small defect involving the inferior oh apical wall whichwas fixed. This was felt to likely represent artifact. There was no otherevidence of Lexiscan stress-induced ischemia.02/24/2017 -[facility] Lexiscan [facility] ventricular systolic function with an ejectionfraction of 48%. There was a moderate sized anterior septal defect which waspartially reversible noted. This was read as suggestive of possiblestress-inducedischemia.Cardiac Catheterizations:07/16/2004 - [facility]. There was moderately decreased leftventricular systolic function noted with an ejection fraction of 30%.Moderately elevated right heart pressures and anormal cardiac index werenoted. The patient was continued on Demadex, Diovan, around oh lactone, Cor eg3.125 mg twice a day.06/12/2005 - a right and left heart catheterization was performed at [facility] revealing nonobstructive coronary artery disease,left ventricular ejection fraction of 50%, moderate pulmonary hypertension,severely elevated left ventricular end-diastolic pressure, normal cardiacoutput and normal cardiac index. The patient was started on Lasix 40 mg twicea day.02/14/2008 - a right and left heart catheterization was performed at [facility] revealing mild 3 vessel coronary arterydisease, mildly reduced left ventricular systolic function (no ejectionfraction noted on the report), mild mitral regurgitation, mildly elevated leftventricular end-diastolic pressure, mild pulmonary hypertension and a normalcardiac index. No changeswere made to the medical regimen.02/28/2013 - a right and left heart catheterization performed at [facility] reveals mild 3 vessel coronary artery disease, mild pulmonaryhypertension, preserved cardiac index and no evidence of cardiac shunt. Thisstudy was performed due to an abnormal stresstest and a suspected patentforamen ovale versus ASD on echocardiogram. Medical therapy was recommendedbut not detailed in the report.03/05/2017 - a right and left heart catheterization was performed at [facility] revealing nonobstructive coronary artery disease, mildlyreduced [...] help her symptoms. I have suggested the [employer] diet. I havealso discussed with her a [...] via U.S. Mail.This document was generated utilizing Scytl dictation. I have reviewed andverified that thecontents of the document are accurate with the exception ofminor grammatical, spelling and punctuation errors.CONTACT INFORMATION:Thank you for allowing us to participate in the care of this very pleasantpatient. Please free to contact us if we can be of any further assistance.Italo Ann MD, FACCRlogan memorial hospitalt and Mechelle Mancialos alamos medical centerment of Cardiovascular MedicineHarrison Community Hospitalrt and Vascular InstituteEileen Ville [address] [place], [place] [address]Erobya: [phone] Referring Provider: PETER SOSA [[id number]]Allergies As of Date: 04/08/2018 Noted Allergy ReactionLATEX [...] 3 BASIC METABOLIC PNL [SQBMP] Order #: [id number] FUTUREPrescriptions as of 04/08/2018Sig: LISINOPRIL 40 MG [...] Status:Closed by LUC ANN MD on 04/08/18Normal [facility] HospitalPROGRESSon [id number] mass concHNO ID: [id number]: Italo FultonyService: (none)Author Type: PhysicianType: Progress NotesFiled: 04/08/2018 12:59 PMNote Text:Heart and Vascular InstituteUnion and Mechelle [facility] Department of Cardiovascular MedicineOUTPATIENT VISIT DATE 04/08/18OUTPATIENT VISIT TYPEESTABLISHEDPRECU HEALTH DUPLIN HOSPITALRY CARE PHYSICIAN:MISAEL Garcia[address] [place] [address]Onshp: [phone]: [phone] COMPLAINT:Patient presents with:Follow UpHISTORY OF PRESENT ILLNESS:Renuka [...] and under the care of Dr. Schilling [facility]. She has had multiple procedures performed [...] year. She does state that shewas taking xsjy-ktk-natcjnu diet pills until recently. They were notworking. 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 There was no significant valvular disease identified.There was no comment on diastolic function.02/24/2017 - [facility] normal to mildly reduced left ventricular systolic functionwith an ejection fraction of 45-50%. There was minimal concentric leftventricular hypertrophy present. There was evidence of grade 1 diastolicdysfunction. There was mild mitral regurgitation. No estimate a rightventricular systolicpressure was possible on this study.Stress Evaluations:02/26/2016 - a Lexiscan nuclear stress evaluation at the [facility] revealed a left ventricular ejection fraction of 50% with abnormalse ptal wall motion. There was a small defect involving the inferior ohapical wall which was fixed. This was felt to likely represent artifact.There was no other evidence of Lexiscan stress-induced ischemia.02/24/2017 - a Lexiscan nuclear stress evaluation at the [facility] revealed mildly diminished left ventricular systolic function withan ejection fraction of 48%. There was a moderate sized anterior septaldefect which was partially reversible noted. This was read as suggestiveof possible stress-induced ischemia.Cardiac Catheterizations:07/16/2004 - a [facility] performedat [facility] [place] revealed normal coronary arteries. There was moderately decreasedleftventricular systolic function noted with an ejection fraction of 30%. Moderately elevated right heart pressures and a normal cardiac index werenoted. The patient was continued on Demadex, Diovan, around oh lactone,Coreg 3.125 mg twice a day.06/12/2005 - a right and left heart catheterization was performed at [facility] revealing nonobstructive coronary arterydisease, left ventricular ejection fraction of 50%, moderate pulmonaryhypertension, severely elevated left ventricular end-diastolic pressure,normal cardiac output and normal cardiac index. The patient was startedon Lasix 40 mg twice a day.02/14/2008 - a right and left heart catheterization was performed at [facility] revealing mild 3 vessel coronaryartery disease, mildly reduced left ventricular systolic function (noejection fraction noted on the report), mild mitral regurgitation, mildlyelevated left ventricular end-diastolic pressure, mild pulmonaryhypertension and a normal cardiacindex. No changes were made to themedical regimen.02/28/2013 - a right and left heart catheterization performed at [facility] reveals mild 3 vessel coronary artery disease, mildpulmonary hypertension, preserved cardiac index and no evidence of cardiacshunt. This study was performed due to an abnormal stress test and asuspected patent foramen ovale versus ASD on echocardiogram. Medicaltherapy was recommended but not detailed in the report.03/05/2017 - a right and left heart catheterization was performed at [facility] revealing nonobstructive coronary artery disease,mildly reduced [...] help her symptoms. I have suggested the [employer] diet. Keira also discussed with her a [...] via U.S. Mail.This document was generated utilizing Scytl dictation. I have reviewedand verified that the contents of the document are accurate with theexception of minor grammatical, spelling and punctuation errors.CONTACT INFORMATION:Thank you for allowing us to participate in the care of this very pleasantpatient. Please free to contact us if we can be of any furtherassistance.Italo Ann MD, [facility] and Mechelle Mancialos alamos medical centerment of Cardiovascular MedicineHarrison Community Hospitalrt and Vascular Institute[address] [address]Edinjr: [phone] NoMetroHealth [facility] [id number] Visit (JAMAL) --------RENUKA PADRON ([id number]) 1955 FDate Time Provider Department01/04/18 12:30 PM ITALO ANN During your visit today, we recorded the following information about you: Pulse Respiration Blood pressure Weight 57/minute 18/minute 165/72 117.9 kg Height 1.6 Cece Ann MD 01/04/2018 12:56 PM [facility] and Vascular [facility] and Mechelle Dodd Department of Cardiovascular MedicineOUTPATIENT VISIT DATE 01/04/18OUTPATIENT VISIT TYPEESTABLISHEDPRIMARY CARE PHYSICIAN:Peter Sosa DO[address] [place] [address]Xyqjk: [phone]: [phone] COMPLAINT:Patient presents with:Follow UpHISTORY OF PRESENT ILLNESS:Renuka [...] under the care of [facility]. Shehas had multiple procedures performed [...] year. She does statethat she was taking wqjm-aea-ddkhpop diet pills until recently. They were notworking. [...] She may sit in her chair for dtakxig20-12 hoursevery day. She states that it's because [...] (coronary arterydisease)- CHF (congestive heart failure) ([facility])- DM (diabetes mellitus) ([facility])- Fibromyalgia- GERD (gastroesophageal reflux disease)- HTN (hypertension)- [...] 117.9 kg (260lb) SpO2 100% BMI 46.06 kg/r8Alqsqkm: Well appearing, in no acute distress.Eyes: Conjunctiva [...] - a 2-D echocardiogram performed at the [facility] normal left ventricular systolic function with an ejection fraction of60%. There was no significant valvular disease identified. There was nocomment on diastolic function.02/24/2017 - a 2-D echocardiogram performed at the [facility] low normal to mildly reduced left ventricular systolic function withan ejection fraction of 45-50%. There was minimal concentric left ventricularhypertrophy present. There was evidence of grade 1 diastolic dysfunction.There was mild mitral regurgitation. No estimate a right ventricular systolicpressure was possible on this study.Stress Evaluations:02/26/2016 - [facility] Lexiscan [facility] of 50% with abnormal septal wallmotion. There was a small defect involving the inferior oh apical wall whichwas fixed. This was felt to likely represent artifact. There was no otherevidence of Lexiscan stress-induced ischemia.02/24/2017 - [facility] systolic function with an ejectionfraction of 48%. There was a moderate sized anterior septal defect which waspartially reversible noted. This was read as suggestive of possiblestress-induced ischemia.Cardiac Catheterizations:07/16/2004 -[facility]. There was moderately decreased leftventricular systolic function noted with an ejection fraction of 30%.Moderately elevated right heart pressures and a normal cardiac index werenoted. The patient was continued on Demadex, Diovan, around oh lactone, Coreg3.125 mg twice a day.06/12/2005 - a right and left heart catheterization was performed at [facility] revealing nonobstructivecoronary artery disease,left ventricular ejection fraction of 50%, moderate pulmonary hypertension,severely elevated left ventricular end-diastolic pressure, normal cardiacoutput and normal cardiac in dex. The patient was started on Lasix 40 mg twicea day.02/14/2008 - a right and left heart catheterization was performed at [facility] revealing mild 3 vessel coronary arterydisease, mildly reduced left ventricular systolic function (no ejectionfraction noted on the report), mild mitral regurgitation, mildly elevated leftventricular end-diastolic pressure, mild pulmonary hypertension and a normalcardiac index. No changes were made to the medical regimen.02/28/2013 - a right and left heart catheterization performed at [facility] reveals mild 3 vessel coronary artery disease, mild pulmonaryhypertension, preserved cardiac index and no evidence of cardiac shunt. Thisstudy was performed due to an abnormal stress test and a suspected patentforamen ovale versus ASD on echocardiogram. Medical therapy was recommendedbut not detailed in the report.03/05/2017 - a right and left heart catheterization was performed at [facility] revealing nonobstruct junior coronary artery disease, [...] therapy, gastroesophageal reflux disease and obesity.No significant change control coordinator the past 6 months. Patient is very [...] help her symptoms. I have suggested the [employer] diet. I havealso discussed with her a [...] to the requesting physician by way ofshchrist[facility] or t o the requesting physician via U.S. Mail.This document was generated utilizing Scytl dictation. I have reviewed andverified that the contents of the document are accurate with the exception ofminor grammatical, spelling and punctuation errors.CONTACT INFORMATION:Thank you for allowing us to participate in the care of this very pleasantpatient. Please free to contact us if we can be of any further assistance.Italo Ann MD, [facility] and Mechelle Sage of Cardiovascular MedicineHeart and Vascular InstituteAultman Alliance Community Hospital[address], [place] [address]Mvppwp: [phone] Referring Provider: PETER SOSA [[id number]]Allergies As of Date: 01/04/2018 Noted Allergy ReactionLATEX [...] Take by mouth. Disc: Erroneous entryEncounter Number: [id number] Status:Closed by LUC ANN MD on 01/04/18[facility] Park Hospitalon [id number] mass concHNO ID: [id number]: Italo FultonyService: (none)Author Type: PhysicianType: Progress NotesFiled: 01/04/2018 12:56 PMNote Text:Heart and Vascular InstituteRobert and Mechelle Dodd Depart ment of Cardiovascular MedicineOUTPATIENT VISIT DATE 01/04/18OUTPATIENT VISIT TYPEESTABLISHEDPRIMARY CARE PHYSICIAN:Peter Sosa DO[address] [place] [address]Lrzgh: [phone]: [phone] COMPLAINT:Patient presents with:Follow UpHISTORY OF PRESENT ILLNESS:Renuka [...] and under the care of Dr. Schilling [facility]. She has had multiple procedures performed [...] year. She does state that shewas taking ceyy-knw-gbeymyr diet pills until recently. They were notworking. 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 There was no significant valvular disease identified.There was no comment on diastolic function.02/24/2017 - a 2-D echocardiogram performed at the [facility] low normal to mildly reduced left ventricular systolic functionwith an ejection fraction of 45-50%. There was minimal concentric leftventricular hypertrophy present. There was evidence of grade 1 diastolicdysfunction. There was mild mitral regurgitation. No estimate a rightventricular systolic pressure was possible on this study.Stress Evaluations:02/26/2016 - a Lexiscan nuclear stress evaluation at the [facility] revealed a left ventricular ejection fraction of 50% with abnormalseptal wall motion. There was a small defect involving the inferior ohapical wall which was fixed. This was felt to likely represent artifact.There was no other evidence of Lexiscan stress-induced ischemia.02/24/2017 - a Lexiscan nuclear stress evaluation at the [facility] revealed mildly diminished left ventricular systolic function withan ejection fraction of 48%. There was a moderate sized anterior septaldefect which was partially reversible noted. This was read as suggestiveof possible stress-induced ischemia.Cardiac Catheterizations:07/16/2004 - a cardiac catheterization performed at the [facility] [place] revealed normal coronaryarteries. There was moderately decreasedleft ventricular systolic function noted with an ejection fraction of 30%. Moderately elevated right heart pressures and a normal cardiac index werenoted. The patient was continued on Demadex, Diovan, around oh lactone,Coreg 3.125 mg twice a day.06/12/2005 - a right and left heart catheterization was performed at [facility] revealing nonobstructive coronary arterydisease, left ventricular ejection fraction of 50%, moderate pulmonaryhypertension, severely elevated left ventricular end-diastolic pressure,normal cardiac output and normalcardiac index. The patient was startedon Lasix 40 mg twice a day.02/14/2008 - a right and left heart catheterization was performed at [facility] revealing mild 3 vessel coronaryartery disease, mildly reduced left ventricular systolic function (noejection fraction noted on the report), mild mitral regurgitation, mildlyelevated left ventricular end-diastolic pressure, mild pulmonaryhypertension and a normal cardiac index. No [facility].02/28/2013 - a right and left heart catheterization performed at [facility] reveals mild 3 vessel coronary artery disease, mildpulmonary hypertension, preserved cardiac index and no evidence of car diacshunt. This study was performed due to an abnormal stress test and asuspected patent foramen ovale versus ASD on echocardiogram. Medicaltherapy was recommended but not detailed in the report.03/05/2017 - a right and left heart catheterization was performed at [facility] revealing no nobstructive coronary artery disease,mildly [...] therapy, gastroesophagealreflux disease and obesity. No significant change control coordinator the past 6 months. Patient is very [...] blood pressuremoderately elevated today.5. Pulmonary HTN ([facility]) - ICD9: 416.8, ICD10: I27.2, diagnosed by [...] help her symptoms. I have suggested the [employer] diet. Gavin discussed with her a pre-diabetic [...] to the requesting physician by way [facility] or to the requesting physician via U.S. Mail.This document was generated utilizing Kurtosysation. I have reviewedand verified that the contents of the document are accurate with theexception of minor grammatical, spelling and punctuation errors.CONTACT INFORMATION:Thank you for allowing us to participate in the care of this very pleasantpatient. Please free to contact us if we can be of any f urtherassistance.Italo Ann MD, FACCRobert and Mechelle DoddDepartment of CardiovascularMedicineHeart and Vascular Institute[address] [address]Uyioxf: [phone] NormalCBrecksville VA / [facility]-Reactive Proteinon 12-21-2017 CRP mass conc1.1 mg/dLHigh<1.0[facility] HospitalComment on above: Performed By: #### 1988-5 ####[address]GIDEON[address]CB with Differentialon [id number] Auto #/vol (Bld)0.10 thou/mcLNormal 0.00-0.20[facility] HospitalComment on above:Performed By: #### 47783-4 ####[address]#### 94811-3 ####[facility] CENTERGIDEONNORTHEAST AL[facility], [address] [place] [address].Basophils/100 WBC Auto (Bld)0.9 %Normal 0.0-2.0[facility] Health SystemComment on above:Performed By: #### 09193-6 ####[address]#### 95051-2 ####[facility], [address] [place] [address].Eosinophils Auto #/vol (Bld)0.20 thou/mcL Normal0.00-0.70[facility] SystemComment on above:Performed By: #### 36502-2 ####[address]#### 93464-7 ####[facility], [address] [place] [address].Eosinophils/100 WBC Auto (Bld)3.1 %Normal0.0-7.0[facility] SystemComment on above:Performed By: ###Sidney 52629-4 ####[address]#### 98107-3 ####[facility], [address] [place] [address].Erythrocyte distribution width Entitic volume (RBC)16.3 %High11.0-14.8[facility] SystemComment on above:Performed By: #### 97366-3 ####[address]#### 79682-6 ####[facility], [address] [place] [address]. Hematocrit Auto Volume Fraction (Bld)37.5 %Nhtilx55.0-45.0[facility] SystemComment on above:Performed By: #### 06716-0 ####[address]#### 15416-1 ####[facility], [address] [place] [address].Hemoglobin mass conc (Bld)12.2 g/eDZuiavw06.0-16.0[facility] SystemComment on above:Performed By: #### 30117-6 ####[address]#### 93433-3 ####[facility], [address] [place] [address].Lymphocytes Auto #/vol (Bld)1.40 thou/mcLNormal1.00-4.80[facility] HospitalComment on above:Performed By: #### 52802-0 ####[address]#### 16378-4 ####[facility], [address] [place] [address].Lymphocytes/100 WBC Auto (Bld)19.5 %Low22.0-44.0[facility] HospitalComment on above:Performed By: #### 50906-9 ####[address]#### 88717-5 ####[facility], [address] [place] [address].MCH Auto Entitic mass (RBC)25.2 AiljfbticEel92.0-34.0 [facility]ome[facility] Memorial HospitalComment on above:Performed By: #### 03448-1 ####[address]#### 16231-1 ####[facility], [address] [place] [address].MCHC Auto mass conc (RBC)32.6 g/dLNormal 32.0-36.0[facility] SystemComment on above:Performed By: #### 62193-2 ####[address]#### 28197-2 ####[facility], [address] [place] [address].MCV Auto Entitic volume (RBC)77.2 fLLow 80.0-97.0[facility] SystemComment on above:Performed By: #### 46445-9 ####[address]#### 66321-6 ####[facility], [address] [place] [address].Monocytes Auto #/vol (Bld)0.50 thou/mcLNormal 0.00-0.90[facility] SystemComment on above:Performed By: #### 96152-4 ####[address]#### 92115-1 ####[facility], [address] [place] [address].Monocytes/100 WBC Auto (Bld)6.7 %Normal 0.0-12.0[facility] SystemComment on above:Performed By: #### 90749-3 ####[address]#### 92185-0 ####[facility], [address] [place] [address].Neutrophils Auto #/vol (Bld)5.00 thou/mcL Normal1.80-7.70[facility] SystemComment on above:Performed By: #### 38128-6 ####[address]#### 44933-4 ####[facility], [address] [place] [address].Neutrophils/100 WBC Auto (Bld)69.8 %Zjykqr98.0-70.0[facility] SystemComment on above:Performed By: #### 08530-9 ####[address]#### 26223-9 ####[facility], [address] [place] [address].Platelet mean volume Entitic volume (Bld)8.4 FLNormal6.2-12.1[facility] SystemComment on above:Performed By: #### 55827-6 ####[address]#### 00325-7 ####[facility], [address] [place] [address]. Platelets Auto #/vol (Bld)278 thou/vxBOryqgb821-517Zpgbf [facility] Comment on above:Performed By: #### 09654-8 ####[address]#### 78462-2 ####[facility], [address] [place] [address]. RBC Auto #/vol (Bld)4.86 million/mcLNormal3.80-5.10[facility] Comment on above:Performed By: #### 32288-1 ####[address]#### 48266-6 ####[facility], [address] [place] [address]. WBC Auto #/vol (Bld)7.2 thou/mcLNormal4.6-10.2[facility] HospitalComment on above:Performed By: #### 77226-0 ####[address]#### 48684-6 ####[facility], [address] [place] [address]. Sedimentation Rate rbcon 40-85-0106MBJ Velocity (Bld)32 mm/hHigh0-20[facility] HospitalComment on above:Performed By: #### 28997-4 ####[address]#### 12374-4 ####[facility], [address] [place] [address].XR Knee 4+ Views RTon 05-17-2208OF Knee - right 4 viewsEXAMINATION TYPE: XR Knee 4+ Views RT DATE OF EXAM : 12/21/2017 11:15 AMHISTORY: pain in the knee,COMPARISON: NONEFINDINGS: Standing AP, PA, lateral and sunrise patella view submitted of the RIGHT knee. AP imaging demonstrates postoperative changes bilaterally the knees status post total knee replacement. The RIGHT knee prostheses appear properly seated [place] bone without fracture. Relationship wit hin normal [...] MD 12/21/2017 13:26Transcribed by: BARRON 12/21/2017 13:24Technologist: JustusHolmes County [facility]ome[facility] Memorial HospitalCNBarnes-Jewish Hospital [id number] Visit (CARDERIC) --------RENUKA PADRON ([id number]) 1955 [facility] Time Provider Dffsozjfzs09/3/17 1:00 PM ITALO ANN During your visit today, we recorded the following information about you: Pulse Respiration Blood pressure Weight 86/minute 18/minute 146/57 127 kg Height 1.6 Cece Ann MD 07/21/2017 1:57 PM SignedHarrison Community Hospitalrt and Vascular InstituteRobunion county general hospital and Mechelle Dodd Department of Cardiovascular MedicineOUTPATIENT VISIT DATE 07/21/17OUTPATIENT VISIT TYPEESTABLISHEDPRIMARY CARE PHYSICIAN:[place] [address]Tdqbt: [phone]: [phone] COMPLAINT:Patient presents with:Leg EdemaShortness of BreathHISTORY OF [...] under the care of Dr. Schilling of [facility]. Danika had multiple procedures performed [...] year. She does statethat she was taking utaf-kbt-cingrqd diet pills until recently. They were notworking. [...] artery disease)- CHF (congestive heart failure) ([facility])- DM (diabetes me llitus) ([facility])- Fibromyalgia- GERD (gastroesophageal reflux disease)- HTN (hypertension)- [...] kg (280 lb) SpO2 96% BMI 49.6 kg/o0Gcnaplq: Well appearing, in no acute distress.Eyes: Conjunctiva [...] - a 2-D echocardiogram performed at the [facility] normal left ventricular systolic function with an ejection fraction of60%. There was no significant valvular disease identified. There was nocomment on diastolic function.02/24/2017 - a 2-D echocardiogram performed at the [facility] low normal to mildly reduced left ventricular systolic function withan ejection fraction of 45-50%. There was minimal concentric left ventricularhypertrophy present. There was evidence of grade 1 diastolic dysfunction.There was mild mitral regurgitation. No estimate a right ventricular systolicpressure was possible on this study.Stress Evaluations:02/26/2016 - a Lexiscan nuclear stress evaluation at the [facility] a left ventricular ejection fraction of 50% with abnormal septal wallmotion. There was a small defect involving the inferior oh apical wall whichwas fixed. This was felt to likely represent artifact. There was no otherevidence of Lexiscan stress-induced ischemia.02/24/2017 - a Lexiscan nuclear stress evaluation at the [facility] mildly diminished left ventricular systolic function with [...] right and left heart catheterizationwas performed at [facility] revealing nonobstructive coronary artery disease,left ventricular ejection fraction of 50%, moderate pulmonary hypertension,severely elevated left ventri cular end-diastolic pressure, normal cardiacoutput and normal cardiac index. The patient was started on Lasix 40 mg twicea day.02/14/2008 - a right and left heart catheterization was performed at [facility] revealing mild 3 vessel coronary arterydisease, mildly reduced left ventricular systolic function (no ejectionfraction noted on the report), mild mitral regurgitation, mildly elevated leftventricular end-diastolic pressure, mild pulmonary hypertension and a normalcardiac index. No changes were made to the medical regimen.02/28/2013 - a right and left heart catheterization performed at [facility] reveals mild 3 vessel coronary artery disease, mild pulmon aryhypertension, preserved cardiac index and no evidence of cardiac shunt. Thisstudy was performed due to an abnormal stress test and a suspected patentforamen ovale versus ASD on echocardiogram. Medical therapy was recommendedbut not detailed in the report.03/05/2017 - a right and left heart catheterization was performed at [facility] revealing nonobstructive coronary artery disease, mildlyreduced [...] therapy, gastroesophageal reflux disease and obesity.No significant change control coordinator the past 2-3 weeks.2. Edema, unspecified type [...] via U.S. Mail.This document was generated utilizing Kurtosysation. I have reviewed andverified that the contents of the document are accurate with the exception ofminor grammatical, spelling and punctuation errors.CONTACT INFORMATION:Thank you for allowing us to participate in the care of this very pleasantpatient. Please free to contact us if we can be of any further assistance.Italo Ann MD, [facility] and Mechelle DoddTxpartment of Cardiovascular MedicineTucson Va Medical Center and Vascular Institute[address] [address]Misige: [phone] Referring Provider: PETER SOSA [[id number]]Allergies As of Date: 07/21/2017 Noted Allergy ReactionLATEX [...] Status:Closed by LUC ANN MD on 07/21/17Normal [facility] HospitalPROGRESSon [id number] mass concHNO ID: [id number]: Italo FultonyService: (none)Author Type: PhysicianType: Progress NotesFiled: 07/21/2017 1:57 PMNote Text:Heart and Vascular [facility] and Mechelle [facility] Department of Cardiovascular MedicineOUTPATIENT VISIT DATE 07/21/17OUTPATIENT VISIT TYPEESTABLISHEDPRECU HEALTH DUPLIN HOSPITALRY CARE PHYSICIAN:[place] [address]Nhjqo: [phone]: [phone] COMPLAINT:Patient presents with:Leg EdemaShortness of BreathHISTORY OF [...] and under the care of Dr. Schilling [facility]. She has had multiple procedures performed [...] year. She does state that shewas taking enlb-hhq-jzgyjhg diet pills until recently. They were notworking. 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 There was no significant valvular disease identified.There was no comment on diastolic function.02/24/2017 - a 2-D echocardiogram performed at the [facility] low normal to mildly reduced left ventricular systolic functionwith an ejection fraction of 45-50%. There was minimal concentric leftventricular hypertrophy present. There was evidence of grade 1 diastolicdysfunction. There was mild mitral regurgitation. No estimate a right ventricular systolic pressure was possible on this study.Stress Evaluations:02/26/2016 - a Lexiscannuclear stress evaluation at the [facility] revealed a left ventricular ejection fraction of 50% with abnormalseptal wall motion. There was a small defect involving the inferior ohapical wall which was fixed. This was felt to likely represent artifact.There was no other evidence of Lexiscan stress-induced ischemia.02/24/2017 - a Lexiscan nuclear stress evaluation at the [facility] revealed mildly diminished left ventricular systolic function withan ejection fraction of 48%. There was a moderate sized anterior septaldefect which was partially reversible noted. This was read as suggestiveof possible stress-induced ischemia.Cardiac Catheterizations:07/16/2004 - a cardiac catheterization performed at the [facility] [place] revealed normal coronary arteries. There was moderately decreasedleft ventricular systolic function noted with an ejection fraction of 30%. Moderately elevated right heart pressures and a normal cardiac index werenoted. The patient was continued onDemadex, Diovan, around oh lactone,Coreg 3.125 mg twice a day.06/12/2005 - a right and left heart catheterization was performed at [facility] revealing nonobstructive coronary arterydisease, left ventricular ejection fraction of 50%, moderate pulmonaryhypertension, severely elevated left ventricular end-diastolic pressure,normal cardiac output and normal cardiac index. The patient was startedon Lasix 40 mg twice a day.02/14/2008 - a right and left heart catheterization was performed at [facility] revealing mild 3 vessel coronaryartery disease, mildly reduced left ventricular systolic function (noejection fraction noted on the report), mild mitral regurgitation, mildlyelevated left ventricular end-diastolic pressure, mild pulmonaryhypertensionand a normal cardiac index. No changes were made to themedical regimen.02/28/2013 - a right and left heart catheterization performed at [facility] reveals mild 3 vessel coronary artery disease, mildpulmonary hypertension, preserved cardiac index and no evidence of cardiacshunt. This study was performed due to an abnormal stress test and asuspected patent foramen ovale versus ASD on echocardiogram. Medicaltherapy was recommended but not detailed in the report.03/05/2017 - a right and left heart catheterization was performed at [facility] revealing nonobstructive coronary artery disease,mildly reduced [...] diuretic therapy, gastroesophagealreflux disease and obesity.No significant change control coordinator the past 2-3weeks.2. Edema, unspecified type - [...] Class III, BMI 40-49.9 (morbid obesity) ([facility]) - ICD9: 278.01,ICD10: E66.0111. Preoperative cardiovascular evaluation [...] physician viaU.S. Mail.This document was generated utilizing InTouch Technologyon dictation. I have reviewedand verified that the contents of the document are accurate with theexception of minor grammatical, spelling and punctuation errors.CONTACT INFORMATION:Thank you for allowing us to participate in the care of this very pleasantpatient. Please free to contact us if we can be of any furtherassistance.Italo Ann MD, [facility] and Mechelle DoddHarborview Medical Centerment of Cardiovascular MedicineHarrison Community Hospitalrt and Vascular Institute[address] [address]Lzwakb: [phone] NoDoctors [facility] CNOVon 07-12-2038TBKQMupfog Visit (CARDFT) --------ANDIRENUKA ALY ([id number]) 1955 FDate Time Provider Department06/30/17 12:30 PM ITALO ANN During your visit today, we recorded the following information about you: Pulse Respiration Blood pressure Weight 74/minute 18/minute 180/91 127 kg Height 1.6 Cece Ann MD 07/06/2017 1:12 PM [facility] and Vascular [facility] and Mechelle Dodd Department of CardiovascularMedicineOUTPATIENT VISIT DATE 06/30/17OUTPATIENT VISIT TYPENEWPRIMARY CARE PHYSICIAN:Peter Sosa, DO[address] [facility] [address]Znvii: [phone]: [phone] COMPLAINT:Patient presents with:CARD New Patient ConsultHISTORY OF [...] under the care of Dr. Schilling of [facility]. Danika had multiple procedures performed [...] year. She does statethat she was taking yiwg-mkt-bhogmyq diet pills until recently. They were notworking. [...] artery disease)- CHF (congestive heart failure) ([facility])- DM (diabetes mellitus) ([facility])- Fibromyalgia- GERD (gastroesophageal reflux disease)- HTN (hypertension)- [...] kg (280 lb) SpO2 100% BMI 49.6 kg/v0Mcuqnxi: Well appearing, in no acute distress.Eyes: Conjunctiva [...] - [facility] with an ejection fraction of60%. There was no significant valvular disease identified. There was nocomment on diastolic function.02/24/2017 - [facility] normal to mildly reduced left ventricular systolic function withan ejection fraction of 45-50%. There was minimal concentric left ventricularhypertrophy present. There was evidence of grade 1 diastolic dysfunction.There was mild mitral regurgitation. No estimate a right ventricular systolicpressure was possible on this study.Stress Evaluations:02/26/2016 - [facility] fraction of 50% with abnormal septal wallmotion. There was a small defect involving the inferior oh apical wall whichwas fixed. This was felt tolikely represent artifact. There was no otherevidence of Lexiscan stress-induced ischemia.02/24/2017 - [facility] systolic function with an ejectionfraction of 48%. There was a moderate sized anterior septal defect which waspartially reversible noted. This was read as suggestive of possiblestress-induced ischemia.Cardiac Catheterizations:07/16/2004 - [facility]. There was moderately decreased leftventricular systolic function noted with an ejection fraction of 30%.Moderately elevated right heart pressures and a normal cardiac index werenoted. The patient was continued on Demadex, Diovan, around oh lactone, Coreg3.125 mg twice a day.06/12/2005 - a right and left heart catheterization was performed at [facility] revealing nonobstructive coronary artery disease,left ventricular ejectionfraction of 50%, moderate pulmonary hypertension,severely elevated left ventricular end-diastolic pressure, normal cardiacoutput and normal cardiac index. The patient was started on Lasix 40 mg twicea day.02/14/2008 - a right and left heart catheterization was performed at [facility] revealing mild 3 vessel coronary arterydisease, mildly reduced left ventricular systolic function (no ejectionfraction noted on the report), mild mitral regurgitation, mildly elevated leftventricular end-diastolic pressure, mild pulmonary hypertension and a normalcardiac index. No changes were made to the medical regimen.02/28/2013 - a right and left heart catheterization performed at [facility] reveals mild 3 vessel coronary artery disease, mild pulmonaryhypertension, preserved cardiac index and no evidence of cardiac shunt. Thisstudy was performed due to an abnormal stress test and a suspected patentforamen ovale versus ASD on echocardiogram. Medical therapy was recommendedbut not detailed in the report.03/05/2017 - a right and left heart catheterization was performed at [facility] revealing nonobstructive coronary artery disease, mildlyreduced [...] via U.S. Mail.This document was generated utilizing Scytl dictation. I have reviewed andverified that the contents of the document are accurate with the exception ofminor grammatical, spelling and punctuation errors.CONTACT INFORMATION:Thank you for allowing us to participate in the care of this very pleasantpatient. Please free to contact us if we can be of any further marleny tance.Italo Ann MD, FACCRobert and Mechlele DoddHarborview Medical Centersharron of Cardiovascular MedicineTucson Va Medical Center [facility] Institute[address] [address]Kxhqzi: [phone] Referring Provider: NO PCP [[id number]]Allergies As of [...] Class III, BMI 40-49.9 (morbid obesity) ([facility]) [E66.01]Prescriptions as of 06/30/2017 Sig: ESOMEPRAZOLE MAGNESIUM [...] FOR* Status:Closed by LUC ANN MD on 07/06/17[facility] 06-30-2017 Protein mass concHNO ID: [id number]: Italo FultonyService: (none)Author Type: PhysicianType: Progress NotesFiled: 07/06/2017 1:12 PMNote Text:Heart and Vascular InstituteRobunion county general hospital and Mechelle Dodd Department of Cardiovascular MedicineOUTPATIENT VISIT DATE 06/30/17OUTPATIENT VISIT TYPENEWPRIMARY CARE PHYSICIAN:Peter Sosa, DO[address] [place] [address]Vzvgi: [phone]: [phone] COMPLAINT:Patient presents with:CARD New Patient ConsultHISTORY OF [...] and under the care of Dr. Schilling [facility]. She has had multiple procedures performed [...] year. She does state that shewas taking dddb-bhu-xekaojy diet pills until recently. They were notworking. 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 There was no significant valvular disease identified.There was no comment on diastolic function.02/24/2017 - [facility] to mildly reduced left ventricular systolic functionwith an ejection fraction of 45-50%. There was minimal concentric leftventricular hypertrophy present. There was evidence of grade 1 diastolicdysfunction. There was mild mitral regurgitation. No estimate a rightventricular systolic pressure was possible on this study.Stress Evaluations:02/26/2016 - a Lexiscan nuclear stress evaluation at the [facility] revealed a left ventricular ejection fraction of 50% with abnormalsep allyssa wall motion. There was a small defect involving the inferior ohapical wall which was fixed. This was felt to likely represent artifact.There was no other evidence of Lexiscan stress-induced ischemia.02/24/2017 - a Lexiscan nuclear stress evaluation at the [facility] revealed mildly diminished left ventricular systolic function withan ejection fraction of 48%. There was a moderate sized anterior septaldefect which was partially reversible noted. This was read as suggestiveof possible stress-induced ischemia.Cardiac Catheterizations:07/16/2004 - a cardiac catheterization performed at the [facility] revealed normal coronary arteries. There was moderately decreasedleft ventricular systolic function noted with an ejection fraction of 30%. Moderately elevated right heart pressures and a normal cardiac index werenoted. The patient was continued on Demadex, Diovan, around oh lactone,Coreg 3.125 mg twice a day.06/12/2005 - a right and left heart catheterization was performed at [facility] revealing nonobstructive coronary arterydisease, left ventricular ejection fraction of 50%, moderate pulmonaryhypertension, severely elevated left ventricular end-diastolic pressure,normal cardiac output and normal cardiac index. The patient was startedon Lasix 40 mg twice a day.02/14/2008 - a right and left heart catheterization was performed at [facility] revealing mild 3 vessel coronaryartery disease, mildly reduced left ventricular systolic function (noejection fraction noted on the report), mild mitral regurgitation, mildlyelevated left ventricular end-diastolic pressure, mild pulmonaryhypertension and a normal cardiac index. No changes were made to themedical regimen.02/28/2013 - a right and left heart catheterization performed at [facility] reveals mild 3 vessel coronary artery disease, mildpulmonary hypertension, preserved cardiac index and no evidence of cardiacshunt. This study was performed due to anabnormal stress test and asuspected patent foramen ovale versus ASD on echocardiogram. Medicaltherapy was recommended but not detailed in the report.03/05/2017 - a right and left heart catheterization was performed at [facility] revealing nonobstructive coronary artery disease,mildly reduced [...] physicianvia U.S. Mail.This document was generated utilizing Kurtosysation. Keira reviewedand verified that the contents of the document are accurate with theexception of minorgrammatical, spelling and punctuation errors.CONTACT INFORMATION:Thank you for allowing us to participate in the care of this very pleasantpatient. Please free to contact us if we can be of any furtherassistance.Italo Ann MD, [facility] and Mechelle Mancialos alamos medical centersharron of Cardiovascular MedicineHeart and Vascular InstituteAultman Alliance Community Hospital[address], [place] [address]Dqwfcm: [phone] NormalCHighland District Hospital Vital Signs Date TimeVital SignValuePerforming YdfcqtrctRcpkplaf61-60-5081 13:53-0400Body .02 cmDaniel Sosa DO Work Phone: 1([phone])225-[address] [place], [place] 9805709-24-2025 13:53-0400 Body mass index (BMI) [Ratio]38 kg/u1Llenrq Sosa DO Work Phone: [phone])[address]09-24-2025 13:53-0400 Body .52 kgDaniel Sosa DO Work Phone: [phone])[address]09-24-2025 13:53-0400 Diastolic blood mm[Hg]Peter Sosa DO Work Phone: 1(735)533-[address] [place], [place] [address]109-24-2025 13:53-0400 Heart rate83 /minDaniel Sosa DO Work Phone: 2(507)082-[address] [place], [place] 9805709-24-2025 13:53-0400 Respiratory rate18 /minDaniel Sosa DO Work Phone: 1(841)554-[address] [place], [place] [address]109-24-2025 13:53-0400 SaO2% (BldA) [Mass fraction]96 %Peter Sosa DO Work Phone: 1(528)241-[address] [place], [place] [address]109-24-2025 13:53-0400 Systolic blood mm[Hg]Peter Sosa DO Work Phone: 2(637)344-[address] [place], [place] 9805707-11-2025 12:31-0400 Body gicsew138 cmVlad Joel MD Work Phone: [facility]07-11-2025 12:31-0400Body mass index (BMI) [Ratio]37.41 kg/i4GjcnbuwVlad Joel MD Work Phone: [facility]07-11-2025 12:31-0400Body pamaay19.8 kgMattnatalya Joel MD Work Phone: [facility]05-30-2025 11:39-0400Body ofszvk382.6 cmLeah Barrera MD Work Phone: [phone])[address]05-30-2025 11:39-0400Body mass index (BMI) [Ratio]34.5 kg/q2HmbevsLeah Barrera MD Work Phone: 1(164)[address] [place], [place] 4755705-30-2025 11:39-0400Body waaaov09.17 kgLeah Barrera MD Work Phone: [phone])[address] [place], [place] 4755705-30-2025 11:39-0400Diastolic blood uuupgbyb89 mm[Hg]Leah Barrera MD Work Phone: 1(229)[address] [place], [place] 4755705-30-2025 11:39-0400Heart rate63 /min Leah Barrera MD Work Phone: 1(576)[address] [place], [place] 4755705-30-2025 11:39-0400Systolic blood jadsinas001 mm[Hg]Leah Barrera MD Work Phone: 1(365)[address] [place], [place] 4755704-02-2025 10:16-0400Body .6 cmLeah Barrera MD Work Phone: 1(698)[address] [place], [place] 4755704-02-2025 10:16-0400Body mass index (BMI) [Ratio]34.5 kg/r5QhzbroLeah Barrera MD Work Phone: 1(688)[address] [place], [place] 4755704-02-2025 10:16-0400Body wzengg97.17 kgLeah Barrera MD Work Phone: [phone])[address] [place], [place] 4755704-02-2025 10:16-0400Diastolic blood nqckbego31 mm[Hg]Leah Barrera MD Work Phone: 1(853)[address] [place], [place] 4755704-02-2025 10:16-0400Heart rate76 /min Leah Barrera MD Work Phone: [facility]linQrlopbgbrd73-98-0410 10:16-0400Systolic blood cogedkpa23 mm[Hg]Leah Barrera MD Work Phone: [facility]linAwculxuucm20-46-3781 07:28-0400Body temperature 97.7 [degF]Estrella Angelo MD Work Phone: [facility]03-21-2025 07:28-0400Diastolic blood qiiajher23 mm[Hg]Estrella Angelo MD Work Phone: [facility]03-21-2025 07:28-0400Heart rate60 /minEstrella Angelo MD Work Phone: [facility]03-21-2025 07:28-0400 Respiratory rate20 /minEstrella Angelo MD Work Phone: [facility]03-21-2025 07:28-8874WuP1% (BldA) [Mass fraction]97 %Estrella Angelo MD Work Phone: [facility]03-21-2025 07:28-0400Systolic blood agvmxkih449 mm[Hg]Estrella Angelo MD Work Phone: [facility]03-20-2025 15:07-0400Body pxyyzi851 Mehran Angelo MD Work Phone: [facility]03-20-2025 15:07-0400Body mass index (BMI) [Ratio]37.92 kg/m2Estrella Angelo MD Work Phone: [facility]03-20-2025 15:07-0400Body qmhfyc53.07 kgEstrella Angelo MD Work Phone: [facility]01-09-2025 12:38-0500Body oroime205.02 cmSt[facility]01-09-2025 12:38-0500Body mass index (BMI) [Ratio]38.9 kg/o6UwavttgsxSt. [facility]01-09-2025 12:38-0500Body xjizmzbmekx64.4 [degF][facility] Aqebnv25-84-5465 12:38-0500Body uztdkw70.84 kgSt. [facility]01-09-2025 12:38-0500Diastolic blood ochdyqqd32 mm[Hg][facility] 10-27-2024 12:38-0500Heart rate80 /[facility] 10-27-2024 12:38-0500Respiratory rate18 /minSt. [facility] 10-27-2024 12:38-1612UaZ8% (BldA) [Mass fraction]98 %[facility]01-09-2025 12:38-0500Systolic blood levonuxa984 mm[Hg][facility]03-19-2024 14:24-0400Body plupae203.02 cmSt. [facility]03-19-2024 14:24-0400Body mass index (BMI) [Ratio]35.9 kg/m2 [facility]03-19-2024 14:24-0400Body .3 [degF][facility]03-19-2024 14:24-0400Body lcfcke29.[address] [facility]03-19-2024 14:24-0400Diastolic blood dkmbpcar20 mm[Hg][facility]03-19-2024 14:24-0400Heart rate72 /min [facility]03-19-2024 14:24-0400Respiratory rate20 /min [facility]03-19-2024 14:24-8624TnE5% (BldA) [Mass fraction]99 %[facility]03-19-2024 14:24-0400Systolic blood uskchwfd583 mm[Hg][facility]09-19-2023 14:15-0400 Body nifydo981.02 Vinitahristted Romeo Other [employer] Other 09-19-2023 14:15-0400Body mass index (BMI) [Ratio] 36.31 kg/t0Xztdmbxhdyx Agueda Other [employer] Other 09-19-2023 14:15-0400Body ozrfdhmlxas28.4 [degF] Christnilesher Agueda Other [employer] Other 09-19-2023 14:15-0400Body yshhja22.99 kgChristopher Agueda Other [employer] Other 09-19-2023 14:15-0400Diastolic blood plekqvaz54 mm[Hg] Christopher Agueda Other [employer] Other 09-19-2023 14:15-0400Respiratory rate20 /min Christopher Agueda Other [employer] Other 09-19-2023 14:15-6121RzC5% (BldA) [Mass fraction]100 % Christopher Agueda Other [employer] Other 09-19-2023 14:15-0400Systolic blood feqreltk135 mm[Hg] Christopher Agueda Other [employer] Other 06-07-2023 08:50-0400Body dqfieqxlinb42.5 [degF]Anusha Barber MD Work Phone: HairboboYbmgho45-68-1067 08:50-0400Diastolic blood iljbvafp75 mm[Hg]Anusha Barber MD Work Phone: HairboboMrdnem37-67-9754 08:50-0400Heart rate76 /min Anusha Barber MD Work Phone: HairboboOyfdwr45-85-3910 08:50-5620JqU7% (BldA) [Mass fraction]96 %Anusha Barber MD Work Phone: [facility] HospitalJgcwlz89-33-1709 08:50-0400Systolic blood zecwqyww234 mm[Hg]Anusha Barber MD Work Phone: [facility] HospitalLsnnlx66-38-5400 04:20-0400Respiratory rate14 /minDjohnnie Barber MD Work Phone: [facility] HospitalXamgjg45-59-4293 11:45-0400Body dlsefv194 cm Anusha Barber MD Work Phone: [facility] HospitalMjszvq89-76-1052 11:45-0400Body mass index (BMI) [Ratio]40.07 kg/f7Vcwhssujey Barber MD Work Phone: [facility] HospitalBmrnta46-46-7309 11:45-0400Body peuofj938.6 kg Anusha Barber MD Work Phone: [facility] HospitalBjiyxp81-18-0237 13:45-0400Body .02 cmReynaldo Trejo Other [employer] Other 04-24-2023 13:45-0400Body mass index (BMI) [Ratio] 42.31 kg/d7DzlbqmReynaldo Trejo Other [employer] Other 04-24-2023 13:45-0400Body .37 kgReynaldo Trejo Other [employer] Other 04-24-2023 13:45-0400Diastolic blood ywuhutbt96 mm[Hg] Reynaldo Trejo Other [employer] Other 04-24-2023 13:45-0400Respiratory rate18 /Terra Trejo Other [employer] Other 04-24-2023 13:45-9841CtU6% (BldA) [Mass fraction]98 % Reynaldo Trejo Other [employer] Other 04-24-2023 13:45-0400Systolic blood qyhhlmgf440 mm[Hg] Reynaldo Trejo Other [employer] Other 03-21-2023 15:15-0400Body .02 cmChristopher Agueda Other [employer] Other 03-21-2023 15:15-0400Body mass index (BMI) [Ratio]41.8 kg/z3Kgcovtolisi Agueda Other [employer] Other 03-21-2023 15:15-0400Body seohszfblee20 [degF] Christnilesher Agueda Other [employer] Other 03-21-2023 15:15-0400Body eumylf469.05 kgChristopher Agueda Other [employer] Other 03-21-2023 15:15-0400Diastolic blood clobdagr43 mm[Hg] Christopher Agueda Other [employer] Other 03-21-2023 15:15-0400Respiratory rate20 /min Christopher Agueda Other [employer] Other 03-21-2023 15:15-7280XtT7% (BldA) [Mass fraction]98 % Christopher Agueda Other [employer] Other 03-21-2023 15:15-0400Systolic blood rcfdevua155 mm[Hg] Christopher Agueda Other [employer] Other 12-19-2022 08:06-0500Body hraqnjhyfmn36.7 [degF]Anusha Barber MD Work Phone: [facility] Aotlwa94-90-4804 08:06-0500Diastolic blood bhkyhkre94 mm[Hg]Anusha Barber MD Work Phone: [facility] Qwbrew06-58-0942 08:06-0500Heart rate73 /min Anusha Barber MD Work Phone: [facility] Qlznrw70-61-5132 08:06-0500Respiratory rate16 /minDavieli Barber MD Work Phone: [facility] Ltndwy99-75-6101 08:06-4180DpN0% (BldA) [Mass fraction]96 %Anusha Barber MD Work Phone: [facility] Sprduw91-76-1770 08:06-0500Systolic blood tmtyetqi444 mm[Hg]Anusha Barber MD Work Phone: [facility] Ahtmnv39-72-6263 10:00-0500Body bgwusc230 cm Anusha Barber MD Work Phone: [facility] Tkcvwq34-57-5260 10:00-0500Body mass index (BMI) [Ratio]43 kg/t9AmjmgAnusha Barber MD Work Phone: [facility] Tlhxro02-17-3747 10:00-0500Body yctqas108.1 kg Anusha Barber MD Work Phone: [facility] Ylyrdz72-94-3576 11:00-0500Body ifgtfp009.02 Callie Henderson Other [employer] Other 12-13-2022 11:00-0500Body mass index (BMI) [Ratio] 43.61 kg/m2Mabel Henderson Other [employer] Other 12-13-2022 11:00-0500Body yqbzgcdwmvz48.3 [degF]Mabel Henderson Other [employer] Other 12-13-2022 11:00-0500Body xopbfr837.68 kgMabel Henderson Other [employer] Other 12-13-2022 11:00-0500Diastolic blood mm[Hg] Mabel Henderson Other [employer] Other 12-13-2022 11:00-0500Respiratory rate18 /minMabel Henderson Other [employer] Other 12-13-2022 11:00-9750WyG8% (BldA) [Mass fraction]94 % Mabel Henderson Other [employer] Other 12-13-2022 11:00-0500Systolic blood qflyrdbb233 mm[Hg] Mabel Henderson Other [employer] Other 12-08-2022 13:14-0500Body qdsuuy151.02 cmDaniel A [employer] Work Phone: mp289-8938SB-Yfaxv [place] [employer] DO Work Phone: 1(570) 808-176812-08-2022 13:14-0500Body mass index (BMI) [Ratio] 43.93 kg/d2Kielps A [employer] Work Phone: mp737-6597AS-Qoypv [place] [employer] DO Work Phone: 1(171) 870-730512-08-2022 13:14-0500Body surface area Derived from formula2.12 b1Hcpvfl A [employer] Work Phone: [phone]-Qyqhj [place] [employer] [address] DO Work Phone: 1(417) 384-733112-08-2022 13:14-0500Body mjyzsz911.49 kgDaniel Julio Cesar Sosa Work Phone: mp696-1629OR-Dznnu [place] [employer] [address] DO Work Phone: 1(590) 254-790112-08-2022 13:14-0500Diastolic blood dasxlsgd00 mm[Hg] Peter Harrell Sosa Work Phone: mp926-6954KI-Lsdte [place] [employer] DO Work Phone: 1(775) 886-831712-08-2022 13:14-0500Heart rate54 /minDaniel A Sosa Work Phone: mp164-2162JT-Euvam [place] [employer] DO Work Phone: 1(198) 776-459312-08-2022 13:14-0500Systolic blood mm[Hg] Peter Harrell [employer] Work Phone: mp456-4749ZH-Qnkto [place] [employer] DO Work Phone: 1(667) 792-936210-31-2022 10:00-0400Body .02 cmReynaldo Trejo Other [employer] Other 10-31-2022 10:00-0400Body mass index (BMI) [Ratio] 43.55 kg/m8IzolbzReynaldo Trejo Other [employer] Other 10-31-2022 10:00-0400Body lftypq689.54 kgReynaldo Trejo Other [employer] Other 10-31-2022 10:00-0400Diastolic blood alhrxiec59 mm[Hg] Reynaldo Trejo Other [employer] Other 10-31-2022 10:00-0400Respiratory rate18 /Terra Trejo Other [employer] Other 10-31-2022 10:00-2580EmB1% (BldA) [Mass fraction]99 % Reynaldo Davisdiff Other [employer] Other 10-31-2022 10:00-0400Systolic blood npvujkvx430 mm[Hg] Reynaldosara Davisdiff Other [employer] Other 09-13-2022 10:15-0400Body oakxht406.02 cmReynaldo Bonillaff Other [employer] Other 09-13-2022 10:15-0400Body mass index (BMI) [Ratio] 44.85 kg/l9Rytbbl Maya Other [employer] Other 09-13-2022 10:15-0400Body ubgkyv358.85 kgAshkansara Bonillaff Other [employer] Other 09-13-2022 10:15-0400Diastolic blood frygtgwi39 mm[Hg] Reynaldo Maya Other [employer] Other 09-13-2022 10:15-0400Respiratory rate18 /minDbruno Trejo Other [employer] Other 09-13-2022 10:15-6667QqK5% (BldA) [Mass fraction]97 % Reynaldo Maya Other [employer] Other 09-13-2022 10:15-0400Systolic blood mm[Hg] Reynaldo Trejo Other [employer] Other 08-09-2022 12:11-0400Body yigniz340.02 cmDO Elda Schwerer Work Phone: 1(578)[address] [place], [place] 9174408-09-2022 12:11-0400 Body kahrdwvwfoc46.8 [degF]DO Elda Schwerer Work Phone: 1(506)[address] [place], [place] 9174408-09-2022 12:11-0400 Body xypwof522.4 kgDO Elda Schwerer Work Phone: 1(538)[address] [place], [place] 9174408-09-2022 12:11-0400 Diastolic blood pzrhqqem22 mm[Hg]DO Elda Schwerer Work Phone: 1(603)[address] [place], [place] 9174408-09-2022 12:11-0400 Heart rate74 /minDO Elda Schwerer Work Phone: 1(430)[address] [place], [place] 9174408-09-2022 12:11-0400 Respiratory rate18 /minDO Elda Schwerer Work Phone: 1(626)[address] [place], [place] 9174408-09-2022 12:11-0400 SaO2% (BldA) [Mass fraction]97 %DO Elda Schwerer Work Phone: 1(550)[address] [place], [place] 9174408-09-2022 12:11-0400 Systolic blood ihyefkun586 mm[Hg]DO Elda Schwerer Work Phone: 1(985)[address] [place], [place] 9174408-02-2022 12:15-0400 Body uttswa114.02 cmReynaldo Trejo Other [employer] Other 08-02-2022 12:15-0400Body mass index (BMI) [Ratio] 44.58 kg/a8LrdqqmReynaldo Trejo Other [employer] Other 08-02-2022 12:15-0400Body .17 kgReynaldo Trejo Other [employer] Other 08-02-2022 12:15-0400Diastolic blood yckmoclw60 mm[Hg] Reynaldo Trejo Other [employer] Other 08-02-2022 12:15-0400Respiratory rate18 /minDbruno Maya Other [employer] Other 08-02-2022 12:15-2691WpA0% (BldA) [Mass fraction]96 % Reynaldo Trejo Other [employer] Other 08-02-2022 12:15-0400Systolic blood zvptosnv171 mm[Hg] Reynaldo Trejo Other [employer] Other 06-29-2022 15:45-0400Body .02 cmReynaldo Maya Other [employer] Other 06-29-2022 15:45-0400Body mass index (BMI) [Ratio] 44.99 kg/w8Macfwz Maya Other [employer] Other 06-29-2022 15:45-0400Body asnaml432.21 kgReynaldo Trejo Other [employer] Other 06-29-2022 15:45-0400Diastolic blood ivhntojk41 mm[Hg] Reynaldo Trejo Other [employer] Other 06-29-2022 15:45-0400Respiratory rate18 /Terra Maya Other [employer] Other 06-29-2022 15:45-2092AdK1% (BldA) [Mass fraction]97 % Reynaldo Trejo Other [employer] Other 06-29-2022 15:45-0400Systolic blood mm[Hg] Reynaldo Davisdiff Other [employer] Other 06-29-2022 13:57-0400Body jysluumdgrn03 [degF]DO Elda Schwerer Work Phone: 1(502)[address]06-29-2022 13:57-0400 Body .21 kgDO Elda Schwerer Work Phone: 1(897)[address]06-29-2022 13:57-0400 Diastolic blood dhynajdi32 mm[Hg]DO Elda Schwerer Work Phone: 1(658)[address]06-29-2022 13:57-0400 Heart rate81 /minDO Elda Schwerer Work Phone: 1(680)[address]06-29-2022 13:57-0400 Respiratory rate16 /minDO Elda Schwerer Work Phone: 1(559)[address]06-29-2022 13:57-0400 SaO2% (BldA) [Mass fraction]94 %DO Elda Schwerer Work Phone: [phone]06-29-2022 13:57-0400 Systolic blood frjbwiqk563 mm[Hg]DO Elda Schwerer Work Phone: 1(217)2-[facility]06-28-2022 15:45-0400 Body aqhmpp158.02 Justin Romeo Other [employer] Other 06-28-2022 15:45-0400Body mass index (BMI) [Ratio] 44.63 kg/n8Zhclizsdubb Agueda Other [employer] Other 06-28-2022 15:45-0400Body taayzfrrglu90 [degF] Christnilesher Agueda Other [employer] Other 06-28-2022 15:45-0400Body wmwxyl057.31 kgChristopher Agueda Other [employer] Other 06-28-2022 15:45-0400Diastolic blood hhbobwwo74 mm[Hg] Christnilesher Agueda Other [employer] Other 06-28-2022 15:45-0400Respiratory rate20 /min Christnilesher Agueda Other [employer] Other 06-28-2022 15:45-4235YbL2% (BldA) [Mass fraction]95 % Christnilesher Agueda Other [employer] Other 06-28-2022 15:45-0400Systolic blood elzhafzp785 mm[Hg] Christnilesher Agueda Other [employer] Other 06-15-2022 14:40-0400Body .02 Callie Henderson Other [employer] Other 06-15-2022 14:40-0400Body mass index (BMI) [Ratio] 44.88 kg/m2Mabel Henderson Other [employer] Other 06-15-2022 14:40-0400Body lumrlytmhoj67.9 [degF]Mabel Henderson Other [employer] Other 06-15-2022 14:40-0400Body fxfinc480.94 kgMabel Henderson Other [employer] Other 06-15-2022 14:40-0400Diastolic blood mm[Hg] Mabel Henderson Other [employer] Other 06-15-2022 14:40-0400Respiratory rate18 /minMabel Henderson Other [employer] Other 06-15-2022 14:40-9272MgJ3% (BldA) [Mass fraction]92 % Mabel Henderson Other [employer] Other 06-15-2022 14:40-0400Systolic blood okmluzaj064 mm[Hg] Mabel Henderson Other [employer] Other 04-20-2022 15:45-0400Body fxlyzq442.02 cmReynaldo Trejo Other [employer] Other 04-20-2022 15:45-0400Body mass index (BMI) [Ratio] 45.06 kg/x8PeyjgkReynaldo Trejo Other [employer] Other 04-20-2022 15:45-0400Body sdmzme227.4 kgReynaldo Trejo Other [employer] Other 04-20-2022 15:45-0400Diastolic blood xyckltwr19 mm[Hg] Reynaldo Davisdiff Other [employer] Other 04-20-2022 15:45-0400Respiratory rate18 /minDbruno Trejo Other [employer] Other 04-20-2022 15:45-6615LrV8% (BldA) [Mass fraction]95 % Reynaldo Davisdiff Other [employer] Other 04-20-2022 15:45-0400Systolic blood dqdnjnsy444 mm[Hg] Reynaldo Davisdiff Other [employer] Other 03-02-2022 14:44-0500Body .29 cmDO Elda Schwerer Work Phone: [facility]01-18-2022 16:00-0500 Body mass index (BMI) [Ratio]46.09 kg/g7Hhbmkyb Schwerer Other [employer] Other 01-18-2022 16:00-0500Body lftmyr154.03 kgKaitlin Schwerer Other [employer] Other 01-18-2022 16:00-0500Diastolic blood ualqdulx78 mm[Hg] Elda Schwerer Other [employer] Other 01-18-2022 16:00-4383BsX5% (BldA) [Mass fraction]93 % Elda Schwerer Other [employer] Other 01-18-2022 16:00-0500Systolic blood bgwcyiod523 mm[Hg] Elda Schwerer Other [facility] [employer] Other 01-18-2022 14:45-0500Body hbdurk937.02 cmReynaldo Trejo Other [employer] Other 01-18-2022 14:45-0500Body mass index (BMI) [Ratio] 46.44 kg/u7SyftzwReynaldo Trejo Other [employer] Other 01-18-2022 14:45-0500Body lhhuso558.93 kgReynaldo Trejo Other [employer] Other 01-18-2022 14:45-0500Diastolic blood xtpmogzd00 mm[Hg] Reynaldo Trejo Other [employer] Other 01-18-2022 14:45-0500Respiratory rate18 /Terra Trejo Other [employer] Other 01-18-2022 14:45-2018MyI7% (BldA) [Mass fraction]95 % Reynaldo Trejo Other [employer] Other 01-18-2022 14:45-0500Systolic blood mm[Hg] Reynaldo Trejo Other [employer] Other 12-08-2021 14:00-0500Body .02 Jackson Hayden Other [employer] Other 12-08-2021 14:00-0500Body mass index (BMI) [Ratio] 46.97 kg/r0XoljeLaquita Hayden Other [employer] Other 12-08-2021 14:00-0500Body mutedhgoslu36.3 [degF]Laquita Hayden Other [employer] Other 12-08-2021 14:00-0500Body cbjcal777.29 kgLaquita Hayden Other [employer] Other 12-08-2021 14:00-0500Diastolic blood atkvntlj56 mm[Hg] Laquita Hayden Other [employer] Other 12-08-2021 14:00-0500Respiratory rate18 /minEsasha Hayden Other [employer] Other 12-08-2021 14:00-2178AtN4% (BldA) [Mass fraction]93 % Laquita Hayden Other [employer] Other 12-08-2021 14:00-0500Systolic blood eilycqot851 mm[Hg] Laquita Hayden Other [employer] Other 10-07-2021 11:45-0400Body .02 cmKatoñitolin Schwerer Other [employer] Other 10-07-2021 11:45-0400Body mass index (BMI) [Ratio] 46.16 kg/q0Gzictqc Schwerer Other [employer] Other 10-07-2021 11:45-0400Body .21 kgKaitlin Schwerer Other [employer] Other 10-07-2021 11:45-0400Diastolic blood mm[Hg] Elda Schwerer Other [employer] Other 10-07-2021 11:45-0400Respiratory rate18 /minKaitlin Schwerer Other [employer] Other 10-07-2021 11:45-3608HeT7% (BldA) [Mass fraction]98 % Elda Schwerer Other [employer] Other 10-07-2021 11:45-0400Systolic blood mm[Hg] Elda Schwerer Other [employer] Other 09-23-2021 12:00-0400Body strrpo013.02 cmReynaldo Trejo Jr. Other [employer] Other 09-23-2021 12:00-0400Body mass index (BMI) [Ratio] 45.84 kg/a2AgealjReynaldo Trejo Jr. Other [employer] Other 09-23-2021 12:00-0400Body ghgkuh972.39 kgReynaldo Trejo Jr. Other [employer] Other 09-23-2021 12:00-0400Diastolic blood smadvoqx47 mm[Hg] Reynaldo Trejo Jr. Other [employer] Other 09-23-2021 12:00-0400Respiratory rate18 /Terra Trejo Jr. Other [employer] Other 09-23-2021 12:00-4457WwE5% (BldA) [Mass fraction]96 % Reynaldo Davismaxim Carvajal Other [employer] Other 09-23-2021 12:00-0400Systolic blood ufgtqfpu066 mm[Hg] Reynaldo Trejo Other [employer] Other 09-22-2021 12:15-0400Body .02 cmChristnilesher Agueda Other [employer] Other 09-22-2021 12:15-0400Body mass index (BMI) [Ratio] 45.34 kg/r7Xclbrcimsaa Agueda Other [employer] Other 09-22-2021 12:15-0400Body .3 [degF] Christopher Agueda Other [employer] Other 09-22-2021 12:15-0400Body .12 kgChristopher Augeda Other [employer] Other 09-22-2021 12:15-0400Diastolic blood gzsudcku42 mm[Hg] Christopher Agueda Other [employer] Other 09-22-2021 12:15-0400Respiratory rate20 /min Christopher Agueda Other [employer] Other 09-22-2021 12:15-1551RiV4% (BldA) [Mass fraction]94 % Christopher Agueda Other [employer] Other 09-22-2021 12:150400Systolic blood xgizvxfn075 mm[Hg] [facility] Other Encounters Encounter DateEncounter TypeCare ProviderFacilityStart: 07-13-2025 End: 85-13-6751fkwpyjxixiYxogqfpr Talal SarminiFacility:FTKAIS[facility]OSPITALtart: 07-12-2025 End: 13-74-7410qiuvtlxjrhKnxfsi A Sosa DO Work Phone: [facility] Work Phone: Start: 07-12-2025 End: 86-36-8066Klcasmx encounter procedureMabel Henderson MD-[facility] Work Phone: Start: 63-65-4967Exn-patient / Non-visitMabel Henderson MD-[facility] Work Phone: Start: 06-13-2025 End: 18-72-9402vuhgesgrunXoyaxvau Talal SarminiFacility:Anel DHStart: 11-48-6060wwwzjxmojlXKYHVJX D BEALFacility:[facility]tart: 04-28-2025 End: 86-74-8162Ythism consultation new/estab patient 60 Daphnie Joel MD Work Phone: [facility] on above:Left knee pain, unspecified chronicity (Primary Dx); Left hip pain; History of total knee arthroplasty, left; Primary osteoarthritis of left hipStart: 04-28-2025 End: 35-57-4464Irvznhtzrv hospital visit by Таьтяна Joel MD Work Phone: [facility] on above: ArrivedStart: 44-77-7674gcwkdtyztrPQQZYWZ D BEALFacility:[facility] Start: 04-11-2025 End: 63-42-7331lwkpwigrpaXkqvco [facility] Work Phone: Start: 04-11-2025 End: 31-93-1853Hetpjqgr ReferredPeter Sosa DO-LAB Path Spec [facility] Start: 03-17-2025 End: 63-87-9136Phthnn flowsEdith Barrera MD Work Phone: noms ENT NORWALKStart: 03-17-2025 End: 43-33-8903Tcxtrj flowsheetLeah Barrera MD Work Phone: n[facility] ENT NORWALKStart: 03-17-2025 End: 78-25-1959qlmzemazasUSCISG H TIMMISNot AvailableStart: 03-17-2025 End: 64-28-3449Gxunop outpatient visit 25 minutesHihaven Barrera MD Work Phone: noms E[facility] MEDICAL CENTERKComment on above:Allergic rhinitis, unspecified seasonality, unspecified trigger (Primary Dx); Sensorineural hearing loss (SNHL), bilateral; Nontoxic multinodular goiter (CMS/HCC)Start: 03-14-2025 End: 42-70-7615rczqogbtklJXYIJGX S WRIGHTNot AvailableStart: 03-14-2025 End: 99-77-5572Vpnkiaf encounter Bora Constantino AUD Work Phone: NOWBERTIN RIVERADIOSCAR AUDIOLOGYComment on above: Sensorineural hearing loss, bilateral (Primary Dx); Tinnitus, bilateralStart: 03-14-2025 End: 70-73-1068Zwypnf Ladi Constantino AUD Work Phone: NOJWALK BENEDICT AUDIOLOGYStart: 03-14-2025 End: 50-30-7743Chvqty Ladi Constantino AUD Work Phone: NOFVIELKAMichael BENEDICT AUDIOLOGYStart: 01-24-2025 End: 73-67-9478Zgctigxhp Result EncounterHihaven Barrera MD Work Phone: noms External Department UnsolicitedStart: 01-24-2025 End: 12-12-0411Ydemurlbg Result EncounterLeah Barrera MD Work Phone: noms External Department UnsolicitedStart: 01-18-2025 End: 84-51-1090Hhiifn flowsheetLeah Barrera MD Work Phone: noms CI ENTStart: 01-18-2025 End: 12-92-7515Liekfp flowsheetLeah Barrera MD Work Phone: noms CI ENTStart: 01-18-2025 End: 39-16-0568Mfmkno outpatient visit 25 minutesHihaven Barrera MD Work Phone: noms CI ENTComment on above:ETD (Eustachian tube dysfunction), bilateral (Primary Dx); Ear fullness, bilateral; Swollen gland; Multinodular goiter (CMS/HCC)Start: 01-18-2025 End: 42-08-7445gbzaeuqqjoXGKWSD H TIMMISNot AvailableStart: 01-05-2025 End: 07-60-4432urgovcsirrWWSB S SMITHMercy Boonville HospitalStart: 01-05-2025 End: 40-93-1621Nklxtchmsl hospital visit by Tommie Angelo MD Work Phone: mthz [facility] MED SURGComment on above:Hypotension after procedure (Primary Dx)Start: 11-14-2024 End: 50-35-1736rcpnyuwgpzWCJXJareth Mcintyre HospitalStart: 11-14-2024 End: 27-41-3534Uldtljemme hospital visit by [facility] LaboratoryStart: 10-27-2024 End: 21-08-0205nvonthgcdaMgylizibkTrinity Health [facility] Work Phone: Start: 10-27-2024 End: 71-19-5605Upylpls encounter procedureFormerly [facility] Work Phone: Start: 06-06-2024 End: 35-60-7559Vdnhlgbor identifierDavid Cheng Barber Work Phone: jiS DurhamStart: 06-03-2024 End: 60-85-6073Xnfugyzss identifierDavid Cheng Barber Work Phone: jis DurhamStart: 06-01-2024 End: 30-92-4972qwklmvpqmzYugrsbnp Talal SarminiFacility:FTMCStart: 05-25-2024 End: 08-29-5576Imifwtrsu identifierTaylor Eli Pierre Work Phone: [facility] Work Phone: Start: 05-25-2024 End: 90-50-0962Cwdmmh outpatient visit 25 minutesTaylor D Ignacio Work Phone: jis DurhamStart: 03-28-2024 End: 95-27-2483wufmxbmlnyWuxstvbm Talal SarminiFacility:Anel DHStart: 03-23-2024 End: 48-44-5037Ovhdmw outpatient visit 15 minutesDavid Cheng Barber Work Phone: jis DurhamStart: 02-12-2024 End: 09-40-8424Dmiulhbzp Result EncounterHilary Marci Barrera MD Work Phone: noms External Department UnsolicitedStart: 02-12-2024 End: 14-41-6207Lvwzqbdwh Result EncounterHilary Marci Barrera MD Work Phone: noms External Department UnsolicitedStart: 01-27-2024 End: 59-03-2224Ekkolmklf Result EncounterHilary Marci Barrera MD Work Phone: noms External Department UnsolicitedStart: 01-27-2024 End: 44-26-7398Kfripkcjf Result EncounterHilary Marci Barrera MD Work Phone: noms External Department UnsolicitedStart: 01-05-2024 End: 64-77-1888kukbvhtllzZznbisjzfTrinity Health [facility] Work Phone: Start: 01-05-2024 End: 75-31-0263Njccsgo encounter elieFormerly [facility] Work Phone: Start: 11-03-2023 End: 81-36-1768duklthdbamHfjsllnwjrg Agueda Other [facility] [employer] Other Start: 32-66-4657Cubeylsib encounterChristopher AvendanoFPG Pulmonary DiseaseStart: 09-22-2023 End: 19-45-2299zeonkjxdctLmfj Bakhous Other [facility] [employer] Other Start: 67-00-0186Ahxrvmfrc encounterAziz BakhousFPG NephrologyStart: 08-07-2023 End: 37-28-7438Tfwcfe outpatient visit 10 minutesTaylor D Dackin Work Phone: jis DurhamStart: 07-09-2023 End: 69-94-6032Ulnrbcdwi identifierDasujey Barber Work Phone: jis DurhamStart: 07-07-2023 End: 21-14-0188zchfivgtlwLtosfixeeat Agueda Other [facility] [employer] Other Start: 19-13-1412Vfbwhq outpatient visit 15 minutes Christopher AvendanoFPG Pulmonary DiseaseStart: 07-03-2023 End: 53-43-5248Hhtnvcifn identifierTaylor D Dackin Work Phone: jis DurhamStart: 06-29-2023 End: 68-31-9347Vrwroapie identifierTaylor D Dackin Work Phone: jis DurhamStart: 06-29-2023 End: 35-69-0192Xzhifx follow up visit related to original Dyllan Barber MD [facility] [place]Start: 06-04-2023 End: 87-85-8199mktriwafthPmzeud Cundiff Other [employer] Other Start: 71-65-7403Tsvwshwid encounterReynaldo Trejo [facility] Care ClinicStart: 76-82-1988knqyyzhsgqAXMaude SOSA Facility:C9Prrvd: 03-20-2023 End: 31-79-0062qkwmuqxbsrYpmi Bakreynasid Other [facility] [employer] Other Start: 72-65-6028Tzlbiqmou encounterAzoliver ShannonFPG NephrologyStart: 03-19-2023 End: 67-36-8676Jfopcazhq identifierTacatherine Pierre Work Phone: mount [facility] NASHStart: 03-19-2023 ambulatoryNARENDRANATH LAKSHMIPATHY .Facility:B0Groeq: 03-19-2023 End: 62-14-4148Hlhrmxesna and management of inpatientDavid Richard BRYANT Work Phone: mount [facility] HospitalComment on above:Infection and inflammatory reaction due to other internal joint prosthesis, initial encounter ([facility])Start: 03-18-2023 End: 89-57-1717Azldirnvz identifierMadonna Cavanaugh Work Phone: jis DurhamStart: 03-17-2023 End: 74-97-7038Hvzyajcno identifierMadonna Cavanaugh Work Phone: jis DurhamStart: 03-15-2023 End: 46-71-6706ziybicvupwDY JEFFREY PAY .Facility:A1Oorfs: 54-10-9051Vsebdwzshi Viet Sosa Work Phone: [facility] Work Phone: Start: 02-09-2023 End: 03-61-2506bxofrsrqpyRkwpes Cundiff Other [employer] Other Start: 63-15-2019Onohyv-up encounterReynaldo Trejo [facility] ClinicStart: 01-26-2023 End: 80-67-6775gycqvpkgvaMjsjib Cundiff Other [facility] [employer] Other Start: 99-88-0381Fsmosrzbj encounterReynaldo Davisdiff [facility] ClinicStart: 01-07-2023 End: 09-81-9951kmeoeudnhsHS LEAH TIMMISFacility:C3Dblxq: 01-06-2023 End: 23-85-5379rqushlellnWuoionhdafq Agueda Other [facility] [employer] Other Start: 27-39-8042Mcrrcv outpatient visit 15 minutes Yuan Campo Pulmonary DiseaseStart: 12-18-2022 End: 97-51-2402trafkspslaTXQV SOLIS .Facility:Z4Smaqh: 11-24-2022 End: 78-23-1527Pidvsbzoe Danny Barber Work Phone: [facility]Start: 11-20-2022 End: 26-91-3734ymvxmayoukIshufl Cundiff Other [facility] [employer] Other Start: 75-67-9391Wikmfitpy encounterReynaldo Trejo [facility] ClinicStart: 11-04-2022 End: 66-54-7005awutnmsrzeIR VLAD OMALLEYFacility:C7Tjjfx: 10-24-2022 End: 72-66-3277osqscllnleCS DAVIDSON SHAYFacility:E6Ipxec: 10-23-2022 End: 68-71-6790Zflmov follow up visit related to original Dyllan Barber MD [facility] [place]Start: 10-23-2022 End: 74-29-5507Zptxyucfm Danny Barber Work Phone: jis DurhamStart: 10-06-2022 End: 52-66-5259Imepumbpp identifierDasujey Barber Work Phone: mount [facility] HospitalStart: 10-02-2022 End: 59-56-5167Otcawpujc identifierJojohn Goldman Gomez Work Phone: mount [facility]art: 10-02-2022 End: 12-40-5703Cqoeutwdtz and management of inpatientDasujey Barber MD Work Phone: mount [facility] HospitalComment on above:Mechanical loosening of internal left knee prosthetic joint, subsequent encounter (Primary Dx)Start: 09-30-2022 End: 04-09-8749crjfhsjnqyOkse Bakhous Other [employer] Other Start: 66-01-3244Fliqmw outpatient visit 15 minutes Mabel FryG NephrologyStart: 09-26-2022 End: 60-79-9823Yntnoucxd identifierTacatherine Constantino Work Phone: jis Therapy DurhamStart: 85-27-0761frhwooocrmOoDulce SosaFacility:[id number]: 92-85-1828Lhsphn outpatient visit 25 minutesDakp Sosa Work Phone: [phone]) [phone]-Ngirr [facility] DO Work Phone: Start: 09-23-2022 End: 97-13-0439rmgozxwsnzZTBS BAKHOUSFacility:T5Pcvfy: 09-19-2022 End: 08-03-4559Kohpeeurs identifierDasujey Barber Work Phone: jis DurhamStart: 09-18-2022 End: 36-72-4348tnwdgczvldQEUNBPL SCHWERERFacility:I1Gzyor: 09-03-2022 End: 49-81-3985Onuvss outpatient visit 25 minutesDasujey Cheng Richard Work Phone: jis DurhamStart: 08-18-2022 End: 54-50-3479lvlaflyjqgDzazrv Cundiff Other [facility] [employer] Other Start: 34-38-7586Artbpk-up encounterDonsara Trejo [facility] Care ClinicStart: 08-05-2022 End: 75-26-4100qynvqxmldrYtnatf Maya Other [facility] [employer] Other Start: 22-93-4164Aeyobuqqv encounterDonsara Trejo [facility] Care ClinicStart: 08-04-2022 End: 44-27-2651hobwkyuilcSczvuy Cundiff Other [facility] [employer] Other Start: 63-40-7208Pcsqjener encounterDonsara Trejo [facility] ClinicStart: 07-09-2022 End: 53-97-6774Qjaifo outpatient visit 15 minutesDavieli VinsonCheng Richard Work Phone: jis DurhamStart: 07-01-2022 End: 67-19-7161cnfkyliencCrtojl Cundiff Other [facility] [employer] Other Start: 60-37-9825Dwruwg-up encounterDonsara Trejo [facility] Care ClinicStart: 06-05-2022 End: 98-15-3651eptzzvolbbYD PETER A HERRINGFacility:K6Giblm: 05-29-2022 End: 91-79-8222ssnnahshkvCR PETER A HERRINGFacility:T1Bswze: 05-28-2022 End: 22-88-7054aqmqapxlfeTfojinrwslx Agueda Other [facility] [employer] Other Start: 04-28-6236Jzzfasrif encounterChristopher AvendanoG Family Medicine [place]kyStart: 05-27-2022 End: 64-32-9187Tfhfjvogq department patient visitDO Elda Sibley Work Phone: [facility]-Emergency RoomStart: 05-26-2022 End: 41-16-1236Zscijd outpatient visit 15 minutesDavid Cheng Barber Work Phone: jis DurhamStart: 05-21-2022 End: 42-69-2115Exgxkpz encounter procedureDO Elda Lynnmimi Work Phone: [facility]-Lab Strub RdStart: 05-20-2022 End: 52-55-7186ldqqvtdwvzTgxmey Cundiff Other [facility] [employer] Other Start: 84-49-6490Dcntdk-up encounterDonsara Trejo [facility] Care ClinicStart: 09-57-7601Emiljraalb RecurringDO Elda Castillokarissa Work Phone: [facility]-Weight ManagementStart: 05-13-2022 End: 58-79-7323gkdixplivjXAJTWWB SCHWERERFacility:V4Dzkbd: 05-12-2022 End: 15-85-5456Fegfls outpatient visit 25 minutesDavieli Barber Work Phone: jis Christiano Garaysandhills [facility] medical centerStart: 05-08-2022 End: 40-16-1755gkwqdrkkobMM ANUSHA AGUEROFacility:A5Qacvt: 04-29-2022 End: 39-89-2562nubfkhgejbOE MISCFacility:T7Srwbk: 04-25-2022 End: 28-08-6376wvgsntfuzlFF Lucinda DESAIFacility:U0Mkyxu: 04-24-2022 End: 97-74-3203owuskmrqbsAZ LUCÍA GRIMALDO .Facility:Z1Nwukt: 04-16-2022 End: 24-00-0593xwjledoseiPdmxve Cundiff Other [facility] [employer] Other Start: 25-22-9684Fvwtwd-up encounterReynaldo Trejo [facility] Care ClinicStart: 04-96-6071Sgosmfalru [facility] Elad Sibley Work Phone: [facility]-Cancer CenterStart: 04-15-2022 End: 54-15-5067wuvlxuanbtCclxklwtibu Agueda Other [facility] [employer] Other Start: 16-98-7258Gzqaeo outpatient visit 15 minutes Yuan TobinnoFPG Pulmonary DiseaseStart: 04-02-2022 End: 90-71-4886zezdsludvyKjlp Bakreynas Other [facility] [employer] Other Start: 02-20-2067Usjokq outpatient visit 15 minutes Aziz BakreynasFPG NephrologyStart: 04-01-2022 End: 90-82-1858gykfdkmkukVD ESSAM ELASHIFacility:K4Qwnli: 72-64-2245Hf [employer]al Elda Sibley Work Phone: [phone]-SdvcfTyler HospitalScott 250 DO Work Phone: Start: 03-20-2022 End: 06-97-3617bmumwoduriNbljts Cundiff Other [employer] Other Start: 57-34-3847Yvbrmgars encounterReynaldo Trejo [facility] Care ClinicStart: 03-13-2022 End: 05-86-7980tmcbtvacwsNauu Bakhous Other [facility] [employer] Other Start: 61-71-8721Lafsxunkx encounterAzoliver BakhousFPG Urgent Care ClydeStart: 03-04-2022 End: 77-26-1749qzecxihaydWeks Bakhous Other [facility] [employer] Other Start: 64-52-3078Zsimazlrp encounterAziz BakhousFPG NephrologyStart: 02-27-2022 End: 43-87-2480foifxvrljqTcyimoh Schwerer Other [facility] [employer] Other Start: 60-52-0875Lfvzmmovh encounterKaitlin Schwerer [facility]field[facility]Start: 02-10-2022 End: 59-13-6229uqklogactyInhia Chaban Other [facility] Other Start: 07-53-1807Gogtexguu encounterKayobani JasonFPG Pulmonary DiseaseStart: 02-05-2022 End: 43-44-8398cktysetjfcOaeurk Cundiff Other [facility] [employer] Other Start: 74-00-2187Kdztff-up encounterReynaldo Trejo [facility] Townshiptart: 01-27-2022 End: 52-78-0636djjehcwnhsPpqlike Schwerer Other [facility] Other Start: 15-04-1904Bjedafdkf encounterKaitlin Schwerer [facility]fieldyStart: 01-22-2022 End: 66-59-1309rfnuwzwkfpPwki Bakhous Other [facility] Other Start: 27-65-9519Ffmilrgvj encounterAziz BakhousFPG NephrologyStart: 01-09-2022 End: 04-40-2926xtkmgrtffyKynlnru Schwerer Other [facility] [employer] Other Start: 14-02-4535Qbimojitj encounterKaitlin Schwerer [facility] [place]kyStart: 14-14-5328kihkmqmathRJN Daphne Angelo Facility:01932Hyrxp: 12-11-2021 End: 51-66-8393eehgvogavdAbeqgts Schwerer Other noRiffyn Other Start: 76-28-4246Wkuucqjvr encounterKaitlin Schwerer [facility] Medicine [place]Start: 12-10-2021 End: 58-56-5471ndjaiqzlndJfcihn Cundiff Other noRiffyn Other Start: 72-76-7042Othnrifxe encounterReynaldo Trejo [facility] ClinicStart: 12-03-2021 End: 77-54-7137mvpbjistioEaruyjs Schwerer Other [employer] Other Start: 14-31-6142Kbztumysn encounterKaitlin Schwerer [facility] Medicine [place]Start: 11-18-2021 End: 08-68-6609ihtmhodeooJvplz Chaban Other [facility] [employer] Other Start: 43-71-6064Dhfbroagr encounterKamal ChabanFPG Pulmonary DiseaseStart: 11-05-2021 End: 25-99-3727ztfyjbajvkIbhsgx Cundiff Other [employer] Other Start: 50-37-9804Vxjqux-up encounterReynaldo Davisdiff [facility] ClinicStart: 23-58-0957Fygfje outpatient visit 25 minutesKaitlin SchwererF Family Medicine [place]Start: 10-22-2021 End: 75-83-1270kndxwvafawKrlg Fitt Other noRiffyn Other Start: 78-30-7900Eetfnwzgd encounterDawn FittFirelands [facility] Hospitaltart: 10-03-2021 End: 99-42-9408ulfygrohpzUshxqoc Schwerer Other noRiffyn Other Start: 29-57-5406Wwvyqtgyv encounterKaitlin Schwerer [facility] Medicine [place]Start: 08-78-2344kiodfqxbobIwDulce Sosa Facility:[id number]: 09-25-2021 End: 76-55-7599lqutxjndqiKwcgg Elashi Other [facility] Other Start: 62-82-3649Lecpfb outpatient visit 15 minutes Essam ElashiFPG NephrologyStart: 09-05-2021 End: 35-25-6653qliwbbnvuoOcyoyav Schwerer Other [employer]fa[facility] [employer] Other Start: 24-97-8556Rgbmwcucg encounterKaitlin Schwerer [facility] Family Medicine [place]Start: 17-18-7595Fqwksjbbl encounterKaitlin Schwerer [facility] Family Medicine [place]Start: 99-88-5016Noeabvprb encounterKaitlin Schwerer [facility] Family Medicine [place]Start: 98-57-0491Lkyltpepx encounterKaitlin Schwerer [facility] Family Medicine [place]Start: 77-22-4389Kmjplw outpatient visit 25 minutes Elda SchwererF Family Medicine [place]kyStart: 08-75-6011Dpebgq-up encounter Reynaldo Trejo Jr.[facility] Townshiptart: 23-76-9387Xjuvgf outpatient visit 15 minutesChristopher AvendanoFPG Pulmonary DiseaseStart: 11-40-8053Fzdeuulqz encounterKaitlin SchwererF Family Medicine [place]kyStart: 08-03-2018 End: 65-56-9491Iyzlkdu encounterDASUJEY BARBERFacility:Christiano DuongStart: 05-27-2018 End: 52-60-5843Gfeluso encounterITALO FULTONMary Rutan Hospital Start: 04-08-2018 End: 76-69-4381Ruzfwik encounterITALO VALLADARES [facility] Start: 01-04-2018 End: 52-95-2272Edgtsnn encounterITALO VALLADARES [facility] Start: 12-22-2017 End: 87-10-6147Ehpaztx encounterDASUJEY HOWARDYOANDYFacility:Stevo GoldStart: 07-21-2017 End: 39-32-0515Uuaysei encounterJEJEANETTE VALLADARES [facility] Start: 06-30-2017 End: 32-21-7039Phkdwsi encounterJEJEANETTE VALLADARES [facility] Start: 06-17-2017 End: 70-43-4269Bcmwyub encounterRAMAYCO ALEJOFacility:UTMCEchocardiogram normal Elda E Schwerer Work Phone: [phone]-Zgrli [facility] DO Work Phone: Imaging result normalKaitlin E Schwerer Work Phone: [phone]-Ygyaa [facility] [address] DO Work Phone: Procedures DateProcedureProcedure DetailPerforming ClinicianStart: 04-28-2025 End: 31-00-8310Bbdlbznywm exam knee complete 4/more viewsMattnatalya Joel MD Work Phone: Start: 37-20-5139EQMRRNMQ FUNCTION TESTSDaphney VALLADARES Work Phone: start: 27-46-3117Ss soft tissue head & neck real time imge docTrace Barrera MD Work Phone: Start: 01-06-2025 End: 73-23-5931Vtvket ecg 1-3 leads w/interpretation & reportUnknown Provider ResultStart: 31-10-5723BZXQD METABOLIC PANEL W/ REFLEX TO MG FOR LOW [place] [employer]ING CLERK - [employer] MACHINE OPERATOR Work Phone: Start: 50-74-2293Tgerm count complete auto&auto difrntl wbcShciro Prince [employer]CHASING CONTRACTING CLERK - TAG MACHINE OPERATOR Work Phone: Start: 50-87-5352Yxsafs ecg 1-3 leads w/interpretation & reportUnknown Provider ResultStart: 73-65-7515Ezal tthrc r-t 2d w/wom-mode compl spec&colr dShirmilo Harrell [facility] Work Phone: Start: 15-87-3040Wyosxknzyh microscopic onlyDanika Harrell [facility] Work Phone: Start: 42-48-6817Huvfs dip stick/tablet rgnt auto w/o microscopyDanika Harrell [facility] Work Phone: Start: 47-20-4754Lafndedqun exam chest 2 viewsDanika Harrell [facility] Work Phone: Start: 12-89-1512Lkuuudvmemw during operationEstrella Angelo MD Work Phone: Start: 16-62-4109Bgsaeo ecg 1-3 leads w/interpretation & reportUnknown Provider ResultStart: 38-39-4706YLRRSOE, WHOLE BLOODEstrella Angelo MD Work Phone: Start: 81-54-4423Lwq routine ecg w/least 12 lds w/i&r Corinne Gunter PURCHASING CONTRACTING CLERK - CRNAStart: 87-83-6446Qtrf count misc body fluids w/differential Joe Angelo MD Work Phone: Start: 64-06-3170Dbiioyu id light microscopy luis tiss/any fluidEstrella Angelo MD Work Phone: Start: 05-25-2024 End: 82-97-5270Kxljhemsogbdna aspir&/inj major jt/bursa w/o usTaylor Ignacio PA-C Start: 05-25-2024 End: 88-66-5136Trannbtxy injectionTaylor Ignacio PA-CStart: 03-23-2024 End: 48-11-4051Nvjkyaeffi examination knee 3 jairoDasujey Barber MDStart: 11-67-2602Nc soft tissue neck w/o contrast materialHilary Marci Barrera MD Work Phone: Start: 93-26-1515Im soft tissue head & neck real time imge docmHilary Marci Barrera MD Work Phone: Start: 07-03-2023 End: 99-35-4521Fjffufpuwqvvai aspir&/inj major jt/bursa w/o usDasujey Barber MD Start: 06-29-2023 End: 46-52-1768Cnyxgfhdsx examination knee 3 viewsAnusha Barber MDStart: 21-20-7653Zrmo-cov-2 detection by dna/rnaAnusha Barber MD Work Phone: start: 85-39-0635PLQLK OXIMETRY, Willian Squires MD Work Phone: Start: 93-50-3871JLVUR OXIMETRY, Willian Squires MD Work Phone: Start: 33-58-0480JNBLM OXIMETRY, Willian Squires MD Work Phone: Start: 88-33-2192ALXKE OXIMETRY, Willian Squires MD Work Phone: Start: 34-32-5291FVRNP OXIMETRY, Willian Squires MD Work Phone: Start: 47-11-8376QKZBT OXIMETRY, Willian Squires MD Work Phone: Start: 19-39-4957SEEE GLUCOSE BLOODAnusha Barber MD Work Phone: start: 36-99-4594IXWN GLUCOSE Gretchen Barber MD Work Phone: start: 68-61-1607WIDHK OXIMETRY, Willian Squires MD Work Phone: Start: 33-28-9728Jaqyb metabolic panel calcium total Valeriano Squires MD Work Phone: Start: 47-34-8205PSH W Auto Differential panel - Blood Valeriano Squires MD Work Phone: Start: 12-10-7126LKJF GLUCOSE BLOODAnusha Barber MD Work Phone: start: 53-89-7495KAEYM OXIMETRYWillian MD Work Phone: Start: 11-55-6977BYZR GLUCOSE Gretchen Barber MD Work Phone: start: 30-74-0928BDBH GLUCOSE BLOODAnusha Barber MD Work Phone: start: 11-71-7606ADEC GLUCOSE Gretchen Barber MD Work Phone: start: 24-33-2610KFASQ OXIMETRY, Willian Squires MD Work Phone: Start: 69-62-1443Lxx routine ecg w/least 12 lds trcg only w/o i&rMyogesh Squires MD Work Phone: Start: 73-26-8283BVHZ GLUCOSE BLOODAnusha Barber MD Work Phone: start: 09-08-2256Mggsb metabolic panel calcium total Valeriano Squires MD Work Phone: Start: 22-68-3540SAP W Auto Differential panel - Blood Valeriano Squires MD Work Phone: Start: 97-73-6271BBCF GLUCOSE BLOODDasujey Barber MD Work Phone: start: 07-11-5075NSYKN OXIMETRY, Willian Squires MD Work Phone: Start: 78-53-4868Ebrmaigijl examination knee 1/2 views Kaur BURT Work Phone: start: 03-19-2023 End: 52-72-8860VBMUQ OXIMETRY, Willian Squires MD Work Phone: Start: 74-62-2026SJPF GLUCOSE BLOODDasujey Barber MD Work Phone: start: 68-15-7037Mjpno iv surg pathology gross&microscopic examDasujey Barber MD Work Phone: start: 03-19-2023 End: 90-93-8585Ecekec kne w/expl drg/rmvl fbAnusha Barber MDStart: 03-19-2023 History of operative procedure on kneeS/P left knee surgeryAnusha Barber MD Work Phone: start: 03-19-2023 End: 04-77-9734XO Incision Knee Joint For InfectionDasujey Barber MDStart: 03-19-2023 End: 45-06-7199VD Revise Knee Joint ReplacementAnusha Barber MDStart: 03-19-2023 End: 35-30-7187Hgsr total knee arthrp w/wo algrft 1 componentDasujey Barber MD Start: 10-85-8075Cpss count misc body fluids w/differential countAnusha Barber MD Work Phone: start: 03-19-2023 End: 68-53-7449Pqdopoz bacterial any source anaerobic iso&idAnusha Barber MD Work Phone: start: 85-96-2868RYNUIXULNQQQ BODY FLUIDAnusha Barber MD Work Phone: start: 03-19-2023 End: 86-51-2230NCPNXUOU DRAINAGE EXTREMITY LOWERAnusha Barber MD Work Phone: start: 03-19-2023 End: 65-62-5238WUCQJOQT KNEE TOTALAnusha Barber MD Work Phone: start: 88-63-9154Hlraq metabolic panel calcium total Valeriano Squires MD Work Phone: Start: 08-50-3415KBY W Auto Differential panel - Blood Valeriano Squires MD Work Phone: Start: 03-17-2023 End: 52-13-2983Wghnbqdzlhqkgs aspir&/inj major jt/bursa w/o Vi Barber MD Start: 10-06-2022 End: 84-39-1664Gyrejdgsgrnv Compression Device - SELF PAYAnusha ZIMMERMANtart: 77-96-3574YKAW GLUCOSE Gretchen Barber MD Work Phone: start: 02-14-7383AOUV GLUCOSE Gretchen Barber MD Work Phone: start: 41-45-6177ZUKJ GLUCOSE Gretchen Barber MD Work Phone: start: 89-15-3812JJEU GLUCOSE Gretchen Barber MD Work Phone: start: 82-04-3170YBVOS OXIMETRY, CONTINUOUSDavid A Pineda DO Work Phone: Start: 89-05-4316HZTYI OXIMETRY, CONTINUOUSDavid A Pineda DO Work Phone: Start: 86-85-3774FWXA GLUCOSE Gretchen Barber MD Work Phone: start: 03-55-6547PEZM GLUCOSE Gretchen Barber MD Work Phone: start: 68-97-6523UCQR GLUCOSE BLOODAnusha Barber MD Work Phone: start: 46-57-9058QFXDV OXIMETRY, CONTINUOUSDavid A Pineda DO Work Phone: Start: 82-40-5216Wadxi metabolic panel calcium total Doroteo Pineda DO Work Phone: Start: 74-49-9836HUNK GLUCOSE Gretchen Barber MD Work Phone: start: 06-15-9296VEMK GLUCOSE Gretchen Barber MD Work Phone: start: 80-59-9755JXKCA OXIMETRY, CONTINUOUSDavid A Pineda DO Work Phone: Start: 64-89-0532UTAX GLUCOSE Gretchen Barber MD Work Phone: start: 27-85-0010JQUM GLUCOSE BLOODAnusha Barber MD Work Phone: start: 85-44-3424ANRHO OXIMETRY, CONTINUOUSDavid A Pineda DO Work Phone: Start: 26-41-4545GRGI GLUCOSE BLOODAnusha Barber MD Work Phone: start: 41-86-0951Lwust metabolic panel calcium total Doroteo Pineda DO Work Phone: Start: 95-88-4929AXNP GLUCOSE Gretchen Barber MD Work Phone: start: 28-10-5092ATQXJ OXIMETRY, CONTINUOUSDavid A Pineda DO Work Phone: Start: 21-16-9841DFEN GLUCOSE BLOODAnusha Barber MD Work Phone: start: 03-88-5585IXPEF OXIMETRY, CONTINUOUSDavid A Pineda DO Work Phone: Start: 10-02-2022 End: 33-13-1312DO Revise Knee Joint ReplacementAnusha ZIMMERMANtart: 10-02-2022 End: 07-46-3016Hrib total knee arthrp w/wo algrft 1 componentDasujey Barber MD Start: 42-38-8427LAUO GLUCOSE BLOODAnusha Barber MD Work Phone: start: 18-69-3179Hkksh iv surg pathology gross&microscopic examAnusha Barber MD Work Phone: start: 71-06-1494Wayd count misc body fluids w/differential countAnusha Barber MD Work Phone: start: 10-02-2022 End: 52-84-5382Mrtoxuf bacterial any source anaerobic iso&idDasujey Barber MD Work Phone: start: 44-36-4897PZBGRMPQGNEI BODY FLUIDAnusha Barber MD Work Phone: start: 10-02-2022 End: 33-87-0496MMQKSQRY KNEE TOTALAnusha Barber MD Work Phone: start: 70-03-4547HDQA GLUCOSE BLOODAnusha Barber MD Work Phone: start: 85-62-1042Txik-cov-2 detection by dna/rnaAnusha Barber MD Work Phone: start: 09-26-2022 End: 76-12-5840Yaagaqiy therapy evaluation low complex 20 minsAnusha Barber MD Start: 09-26-2022 End: 33-58-3907Jncqxwfvi actvity direct pt contact each 15 Sebas Barber MD Start: 09-03-2022 End: 39-16-5566Cpmxw hip unilateral with pelvis 2-3 viewsAnusha Barber MDStart: 07-09-2022 End: 72-35-6055Ekrqzioinkjbln aspir&/inj major jt/bursa w/o Vi Barber MD Start: 07-09-2022 End: 15-83-4147Smjxuneqrwsvs acet inj NOSAnusha Barber MDStart: 05-12-2022 End: 23-22-8957Mthyzljzbfjvkv aspir&/inj major jt/bursa w/o Vi Barber MD Start: 05-12-2022 End: 63-16-7434Lexguzacsa examination knee 3 viewsAnusha Barber MDStart: 05-06-6283SnhnxdkqtsnszderKxrwn: 01-69-6502Mtqon colonoscopyKaitlin E Schwerer Work Phone: AppendectomyKaitlin E [...] Work Phone: Plan of Treatment DateCare ActivityDetailAuthorStart: 41-21-0989YRJ VACCINE (1 - 1-dose 75+ series)RSV VACCINE (1 - 1-dose 75+ series)[facility]: 42-55-6992PDA test (Diabetes, CKD 3-4, OR last GFR 15-59)GFR test (Diabetes, CKD 3-4, OR last GFR 15-59)[facility] HospitalStart: 10-99-5060Hgrnfhwwc vaccinationINFLUENZA VACCINE (#1)[facility]: 04-11-2025 Bacteria identified in Urine by CultureUrine [facility] Centertart: 04-08-4266Fheyl cultureMercy Hospitaltart: 03-17-2025 End: 76-53-6959Bugcuza encounter procedureNOMS ENT [facility]: 03-14-2025 End: 49-23-1079Qprgmbw encounter /27/2025 3:00 PM EDT Office Visit [facility] [address] [place], [id number] ConstantinoDaphney S, AUD [address] [facility] [place] [address] [facility] BENITEZCT AUDIOLOGYStart: 01-18-2025 End: 43-89-8562Ipyptgu encounter uiffmvnkn75/02/2025 10:20 AM EDT Office Visit [facility] [address] [facility] [address] [place] [id number] Leah Barrera MD [address] [facility] [address] [place], [place] [id number] ArrivedNOMS CI ENTComment on above:ArrivedStart: 47-83-7807Ogqghr Wellness Visit (Medicare Advantage)Annual Wellness Visit (Medicare Advantage)Bon Sheyla Inaikacori [facility] HospitalStart: 32-42-0620PPLLY-19 Vaccine ( season)COVID-19 Vaccine ( season)Bon Sheyla Inaikacori [facility] Start: 80-97-6425TwrwsMarisol Padroniance [facility] Work Phone: Start: 05-25-2024 reactive protein [Mass/volume] in Serum or PlasmaC-Reactive Protein ([id number]), Added on: Dyt-05-2424TmltoOridfsgh of [place]Start: 92-49-3016Bzsdc Risk AssessmentFalls Risk AssessmentSouthwood Psychiatric HospitalStart: 49-74-9081Xmfwbhwgkqpe/CHF/CAD Annual BMP Blood Test Hypertension/CHF/CAD Annual BMP Blood TestTrinCurahealth Heritage ValleyStart: 95-36-3977Qiaxn Risk AssessmentFalls Risk AssessmentSouthwood Psychiatric HospitalStart: 10-04-2023 Hypertension/CHF/CAD Annual BMP Blood TestHypertension/CHF/CAD Annual BMP Blood TestTrinCurahealth Heritage ValleyStart: 12-43-5607JBB, Provider: Luis Castanon, Status: Pen, Time: 11:20 AMFUV, Provider: Luis Castanon, Status: Pen, Time: 11:20 AMMP-[facility] [facility] DO Work Phone: Start: 06-29-2023 reactive protein [Mass/volume] in Serum or PlasmaC-Reactive Protein, Quant ([id number]), Ordered on: [facility] [place]Start: 40-57-1931Bftibpjvjra sedimentation rate Sedimentation Rate-Westergren ([id number]), Ordered on: Cla-29-3328TjabbJlvnjwhx of [place]Start: 77-39-3484MSK With Differential/Platelet ([id number]), Ordered on: Rlg-05-0574EpidvOlkqinvy of [place]Start: 39-57-0026Ywdcpefzvo A1c measurement Diabetes: Hemoglobin V5ZDPMYMercy Hospital JoplinStart: 32-52-4559Zvxtlhjvtd of knee, Left (), Added on: Wcp-89-0292ThglkJyqjkimb of [place]Start: 57-11-5082BVO, Provider: Luis Castanon, Status: Pen, Time: 2:30 PMMP-[facility] 250 DO Work Phone: Start: 71-55-0940Hhqekzbbhl depression screening assessmentDepression ScreeningTrinCurahealth Heritage ValleyStart: 55-42-1546Oxdprbklp C screeningHepatitis C ScreeningTrinprotestant deaconess hospital HealthStart: 66-29-7185Fzypj panel Cholesterol Screening (Lipid Panel)[facility] HospitalStart: 12-05-2022Medicare Annual Wellness VisitMedicare Annual Wellness VisitTrinCurahealth Heritage ValleyStart: 21-01-3269Tgtsiubod for malignant neoplasm of breastBreast Cancer Screening [facility] HospitalStart: 57-05-8611Huaysuwix for malignant neoplasm of colon Colorectal Cancer Screening: ColonoscopyTrinCurahealth Heritage ValleyStart: 18-86-6391Qlrjzaswv for osteoporosisOsteoporosis Screening (Bone Density Screening)[facility] Start: 37-64-1107Yhexel Influencers of Health ScreeningSocial Influencers of Health ScreeningTrinCurahealth Heritage ValleyStart: 94-21-7180Iaggiac referralReferrals: DME LTKA RevOrthoAlliance [facility] HospitalStart: 05-27-2022 End: 69-05-7232Suzymkhgf department patient visitDeparted EmergencyUc [facility]-Emergency RoomStart: 52-29-7753JpbcpQirifbdj [facility]: 59-77-9808WmsdvajbnUc [facility] Work Phone: Start: 79-00-2570SzqoyupvtUc [facility] Hospital [facility] Work Phone: Start: 55-97-2719RMDHR-19 Vaccine (3 - Booster for Pfizer series)COVID-19 Vaccine (3 - Booster for Pfizer series)[facility] Start: 80-02-8799VMLWF-19 Vaccine (3 - Pfizer series)COVID-19 Vaccine (3 - Pfizer series)[facility] HospitalStart: 92-23-6271Liyemokuxgo Syncytial Virus (RSV) or age 60 yrs+ (1 - Risk 60-74 years 1-dose series)Respiratory Syncytial Virus (RSV) or age 60 yrs+ (1 - Risk 60-74 years 1-dose series)[facility]: 52-33-1135Qnavkywru for osteoporosisDEXA (modify frequency per FRAX score)[facility]: 2005 Shingles vaccine (1 of 2)Shingles vaccine (1 of 2)[facility]: 53-55-2049Aovggw vaccine hzv live for subcutaneous useZOSTER (SHINGLES) VACCINE (1 of 2)[facility]tart: 45-36-7420Tsdcjh Vaccines (1 of 2) Zoster Vaccines (1 of 2)[facility]: 59-10-7835Uybfaenjc for malignant neoplasm of colonVCU Health Community [facility]: 89-75-7895Gaher panelLIPID SCREENINGNorwalk Memorial Hospitaltart: 75-39-7338Fsoasdfpf for malignant neoplasm of breastBon [facility]: 81-11-3064Iboftsmal for malignant neoplasm of cervixCERVICAL CANCER SCREENING DISCUSSIONOSMarietta Osteopathic Clinictart: 17-18-9497FWlT,Tdap,and Td Vaccines (1 - Tdap)DTaP,Tdap,and Td Vaccines (1 - Tdap)[facility]: 73-37-8249MDjU/Tdap/Td vaccine (1 - Tdap)DTaP/Tdap/Td vaccine (1 - Tdap)[facility]: 1974 Third diphtheria, tetanus and acellular pertussis (DTaP) vaccinationTDAP (ADULT) [facility]tart: 00-13-1233Fqikd screening for proteinDiabetes: Urine Protein ScreeningReynolds County General Memorial Hospital: 93-03-9328Fsrmggfg screening Diabetic retinal examVCU Health Community [facility]: 74-29-1293Khvmphpaw C screeningHepatitis C screenVCU Health Community [facility]: 78-33-7690Pgkag screening for proteinDiabetic Alb to Cr ratio (uACR) testVCU Health [facility] Hospital: 39-90-0217Prjnrtvhvy ScreenDepression ScreenVCU Health Community [facility]: 73-49-9647Ydokaeiq foot examinationDiabetic foot examVCU Health [facility]: 58-64-9608Tughqryg screeningDiabetes: Retinopathy Screening [facility] HealthcareStart: 00-88-4819Ajzymvofec A1c sfpwpwkpgvlI8D test (Diabetic or Prediabetic)[facility] HospitalStart: 04-60-8368Nyzuc panelLipidsWellmont Lonesome Pine Mt. View HospitalStart: 56-04-5894Vynhxtrxr C screeningHEPATITIS C VIRUS SCREENINGOSMarietta Osteopathic Clinictart: 1955Medicare Annual Wellness (AWV)Medicare Annual Wellness (AWV)[facility] HealthcareStart: 22-96-4048Xqfswtphm for malignant neoplasm of colonNOMS HealthcareStart: 50-01-1572Hpzwictce for osteoporosisDEXA SCAN DISCUSSIONOSMarietta Osteopathic Clinictart: 1955 Tetanus vaccinationTETANUSCleveland Clinic Mercy HospitalComprehensive metabolic 2000 panel - Serum or [facility] Work Phone: Crystals, Body FluidCrystals, Body Fluid Lab Routine 11/14/2024 10:22 AM [facility] Work Phone: Culture, Anaerobic and AerobicCulture, Anaerobic and Aerobic Microbiology Routine 11/14/2024 10:22 AM [facility] Ferritin [Mass/volume] in Serum or [facility] Work Phone: Fungus identified in Skin by CultureTrinity Health Work Phone: Fungus identified in Skin by CultureTrinity Health Work Phone: Mycobacterium sp identified in Unspecified specimen by Organism specific cultureTrinity HealthMycobacterium sp identified in Unspecified specimen by Organism specific cultureTrinity HealthPatient Education Urinary Tract Infection, Adult EDUc West [facility] Hospital Ctr Work Phone: Patient [facility] Work Phone: Renal function 2000 panel - Serum or [facility] Immunizations Immunization DateImmunizationNotesCare PxbalkxmFvdbjgll63-04-0838gvnrxdmiv virus vaccine, unspecified formulationVlad Joel MD Work Phone: [facility]10-20-2022Fluad Quadrivalent 0.5 ML Intramuscular Prefilled SyringeDaniel A Sosa Work Phone: [phone]-JyjziRose [place] [address] DO Work Phone: [phone]DQ-38 Vaccine Pfizer - Documentation Purposes OnlyChristopher Agueda Other [facility] CampusComment on above: Series:89-61-6291KDASC Vaccine Pfizer - Documentation Purposes Only Christopher Agueda Other [facility] CampusComment on above: Series:75-77-2040zgeiuvhiy, injectable, quadrivalent, preservative freeDaniel A Sosa Work Phone: [phone]-JluuzRose [place] [address] DO Work Phone: [phone]u virus vaccine, unspecified formulationKaitlin E Schwerer Work Phone: [phone]-TjcexRose [place] [address] DO Work Phone: [phone]mebbdtdz polysaccharide vaccine, [address]10-19-2020Seasonal trivalent influenza vaccine, adjuvanted, preservative freeKaitlin E Schwerer Work Phone: [phone]-TnibnRose [place] [address] DO Work Phone: [phone]hrsfc, injectable, [place]in [place] Canine Kidney, preservative free, quadrivalentKaitlin E Schwerer Work Phone: [phone]-BpbqfEssentia Health 250 DO Work Phone: [phone]mvabju polysaccharide vaccine, 23 valentKaitlin E Schwerer Work Phone: [phone]-TibepEssentia Health 250 DO Work Phone: [phone]skjqw virus vaccine, unspecified formulationKaitlin E Schwerer Work Phone: [phone]-MbmitWaseca Hospital [facility] Clinic 250 DO Work Phone: [phone]v, seasonal, injectableDaniel A Sosa Work Phone: [phone]-ZskqnWaseca Hospital And Clinic 250 DO Work Phone: [phone]028ocdgpsgfsbte polysaccharide vaccine, [address]10-01-2018Influenza, injectable, Madin [place] Canine Kidney, quadrivalent with preservativeKaitlin E Schwerer Work Phone: [phone]-VyoqbWaseca Hospital And Clinic 250 DO Work Phone: [phone] 424-24751048744-50-1259dlgeqgvxrhax conjugate vaccine, 13 valent Christopher Agueda Other [facility]11-02-2017influenza, injectable, quadrivalent, preservative freeChristopher Agueda Other [facility]03-01-2012 pneumococcal polysaccharide vaccine, [address] [facility] Payers DatePayer CategoryPayerPolicy [id number] (Managed Care)MEDICARE AETNA HMO [id number] 2018Medicaid .[id number] 2008Medicare1960Medicaid [id number] [id number] [id number] [id number] 2.16840.1.718609.3.57[id number] 2.16840.1.564748.3.57[id number] 2.16840.1.026438.3.57[id number] 2.840.1.774718.3.57[id number] 2.840.1.395537.3.579.[id number] 2.16840.1.542104.3.579.2.19886-06-2927Ptypfkw4600648 2.16840.1.372967.3.579.2.12087-01-4646Psiaxkk1792284 2.16840.1.092034.3.579.2.03714-31-8293Hfupewe2002800 2.16840.1.573767.3.579.2.99648-10-1104Bzmlycx1143493 2.16840.1.548375.3.579.2.26231-36-7615Nmfhsfy3480463 2.16840.1.079682.3.579.2.93901-41-6450Xxfsuge5685389 2.16840.1.863416.3.579.2.53433-80-6034Jmakjkz6040674 2.16.840.1.592216.3.579.2.17829-57-2750Umylrhv6805822 2.16.840.1.204394.3.579.2.82763-01-7929Ppejbak2327844 2.16.840.1.795141.3.579.2.10446-71-3953Bqgzxkd7125569 2.16.840.1.221567.3.579.2.83253-55-2005Gvkimex6601263 2.16.840.1.385966.3.579.2.27862-88-6670Xrtxypu6237262 2.16.840.1.081137.3.579.2.37619-22-4551Dmywfgh1204946 2.16840.1.659726.3.579.2.49214-79-2123Ndftadv1124699 2.16.840.1.793755.3.579.2.73444-53-0719Flonikv2811468 2.16.840.1.048252.3.579.2.31481-41-9015Cqynbmz8800253 2.16.840.1.226611.3.579.2.72178-94-7084Xrwvypf3975234 2.16.840.1.314000.3.579.2.42198-39-5271Kbttfwl48292786 2.16.840.1.800630.3.579.2.30187-34-2807Skhamij92015520 2.16.840.1.228646.3.579.2.36077-93-7240Rmqrjax34270579 2.16.840.1.216856.3.579.2.48965-13-0101Jirngto7621387 2.16.840.1.166984.3.579.2.475857-34-7955Fjawhmq7202356 2.16.840.1.723931.3.579.2.792454-31-1735Gsjssmr1979258 2.16.840.1.247431.3.579.2.349301-39-1262Nghwrdu294576810 2.16.840.1.352344.3.579.2.73288-87-9292Cxvqrab293300040 2.16.840.1.921381.3.579.2.59007-68-0890Wxxinkj752215991 2.16.0.1.151779.3.579.2.20826-72-1177Axoukot840790174 2.16.0.1.214989.3.579.2.90947-71-5867Aqtbvxg27258958 2..0.1.236438.3.579.2.78937-75-7143Ptwmmze92420364 2..0.1.19[id number] 2..0.1.332569.19Private Health InsuranceUnmercy hospital Healthcare Dual Compl [id number] Pay [id number] Social History DateTypeDetailFacilityStart: 01-05-2025 End: 28-90-7202Ix illicit drug useNo illicit drug useWellmont Lonesome [facility]. [facility] Comment on above:2 cups of coffee daily;Rarely;high school smoker;Rarely 1-2 times yearly;Start: 01-05-2025 End: 53-69-7812Nfz Assigned At BirthWellmont [facility]ones[facility] HospitalStart: 05-27-2022 End: 67-55-9392Hqxeyau smoking status NHISEx-smoker (finding)[facility] Hospitaltart: 50-83-8957Wcu Assigned At BirthFeVan Wert County HospitalHistory of tobacco useCurrent smokerTrinity HealthHistory of tobacco useCigarette SmokerTrinity HealthStart: 10-02-2022 End: 65-96-3106Uufxxet intakeLifetime non-drinker (finding)[facility] HealthStart: 50-92-1891Xqy Assigned At BirthNot on fileTrinity HealthStart: 09-22-2022 End: 95-10-8520Jwlxfdwu to SARS-CoV-2 (event)Not sureTrinity HealthStart: 03-19-2023 End: 51-95-6587Jmsdeyq use and exposureSmokeless tobacco non-userTrinity Health Start: 03-23-2024 End: 40-90-6079Xxvpkow smoking status NHISUnknown if ever smokedOrthoAlliance of OhioStart: 13-24-5295Kiujhyl intakeAlcohol Use DetailsOrthoAlliance of [place] Start: 81-53-3289Eyhvyj OrientationStraight or heterosexualOrthoAlliance of [place] Start: 82-02-1307Dtowbx OrientationChoose not to discloseOrthoAlliance of [place] Start: 10-27-2024 End: 91-60-6567McmTwhnse (finding)[facility] Hospitaltart: 02-03-2024 End: 42-18-0072Wbxmzyj smoking status NHISNever smoked tobaccoBon Raise HealthStart: 02-03-2024 End: 38-59-3775Ipxmyeiph beverage intakeCurrent drinker of alcohol (finding)Unite UsHas the electric, gas, oil, or water company threatened to shut off services in your home in past 12MoNoBon Raise HealthHow often to you have a drink containing alcohol?Monthly or lessBon CuPcAkE & other things you bake How many standard drinks containing alcohol do you have on a typical day?1 or 2 Bon Raise HealthHow often do you have 6 or more drinks on 1 occasion? NeverBon CuPcAkE & other things you bake(I/We) worried whether (my/our) food would run out before (I/we) got money to buy more.Never trueWellmont Lonesome Pine Mt. View HospitalStart: 74-33-1171Gs the past 12 months, has lack of transportation kept you from medical appointments or from getting medications?NoWellmont Lonesome [facility] Start: 51-68-4610Djcehgy CommentOcassionallyWellmont Lonesome Pine Mt. View HospitalStart: 94-65-1713Pplvhgm CommentOccasionllSaint [facility]ius [facility] Medical Equipment Procedure CodeEquipment CodeEquipment Original TextEquipment IdentifierDatesCps Artcsurf 16mm Lt 6-9 Ef - Sn/A - [id number](21)N/A, [id number] FDAStart: 10-02-2022 Asf Cps 18mm Ve L 6-9 Ef - Sn/A - [id number]/SN/A, [id number] FDAStart: 03-19-2023 Functional Status DateAssessmentResultFacilLifePoint Health Clinical Notes 07-10-2021 to 07-13-2025 Note Date & [id number] NoteProgress Note-Physician Patient: RENUKA PADRON Age: 69 years Sex: Female : 1955 Associated Diagnoses: None Author: Caleb BRYANT, Colt Rosenberg Postoperative Information Postoperative disposition: Postoperative disposition: To PACU. Optimetrix number: Optimetrix number [id number]. Anesthetic utilized: General. Health Status Allergies: Allergic [...] Stable. Plan Transfer/Discharge: Transfer/Discharge Discharge when meets criteria.Marymount HospitalComment on above:Result Comment: Electronically Signed By: Caleb BRYANT, Colt Rosenberg\.br\Date and Time Signed: 07/13/25 09:46 [id number] Note Patient Education - Text Gastroenterology Esophageal [...] including vitamins, herbs, eye drops, creams, and mbrs-zwf-igucswj medicines. ??? Any problems you or family [...] tells you to take them. ? Taking oglb-eko-povinfe medicines, vitamins, herbs, and supplements. ??? Follow [...] Follow these instructions at home: ??? Take lsqq-tmq-vowzlmn and prescription medicines only as told by [...] to have a responsible (more content not included)...[facility]09-25-2025 NoteEndoscopic Procedure Report - Other Patient: [...] examined esophagus, empiric dilation with Delcid 56 Egyptian was done, no resistance, post dilation there [...] examined esophagus, empiric dilation with Delcid 56 Egyptian was done, no resistance, post dilation there was no mucosal disruption or wall defect 2. Evidence of surgery in the stomach with Joellen-en-Y anatomy, healthy looking except for mild inflammation at the anastomosis, nonspecific, no ulcers or erosions noted 3. Normal examined efferent jejunal loop Recommendations: -Resume previous diet -Resume home medications -Follow-up in GI clinic as neededMarymount HospitalComment on above: Result Comment: Electronically Signed By: Darci BRYANT, Glen Ta\.br\Date and Time Signed: 07/13/25 09:00 EDTOther Comment: Missing Attachment - attachment storage system not supported [id number] Can be viewed in source system Missing Attachment - attachment storage system not supported [id number] Can be viewed in source systemMissing Attachment - attachment storage system not supported [id number] Can be viewed in source systemMissing Attachment - attachment storage system not supported [id number] Can be viewed in source systemMissing Attachment - attachment storage system not supported [id number] Can be viewed in source systemMissing Attachment - attachment storage system not supported [id number] Can be viewed in source [id number] NoteProgress Note-Physician Patient: RENUKA PADRON Age: 69 [...] 120 tab(s), Refills(s) 0, Pharmacy: [id number] Documented Medications Documented Fiber Tabs: 1 tab, [...] Refills(s) 0, Prophylaxis fluticasone 0.05 mg/inh Nasal [place]: 2 spray(s), Nasal, Daily, Refill(s) 0, Allergy [...] tab, Oral, Daily fluticasone 0.05 mg/inh Nasal [place] 2 spray(s), Nasal, Daily gabapentin 300 mg [...] CHF (congestive heart failure) / SNOMED CT 99605436 / Confirmed COPD (chronic obstructive pulmonary disease) / SNOMED CT 24220797 / Confirmed Hypertension / SNOMED CT 1750555262 / Confirmed Kidney failure / SNOMED CT 71093180 / Confirmed, Active Problems (4) CHF (congestive heart failure) COPD (chronic obstructive pulmonary disease) Hypertension Kidney failure Histories Past Medical History: No active or resolved past medical history items (more content not included)... [facility] HospitalComment on above:Result Comment: Electronically Signed By: [...] Refills(s) 0, Prophylaxis fluticasone 0.05 mg/inh Nasal [place]: 2 spray(s), Nasal, Daily, Refill(s) 0, Allergy [...] tab, Oral, Daily fluticasone 0.05 mg/inh Nasal [place] 2 spray(s), Nasal, Daily gabapentin 300 mg [...] CHF (congestive heart failure) / SNOMED CT 41112939 / Confirmed COPD (chronic obstructive pulmonary disease) / SNOMED CT 25143606 / Confirmed Kidney failure / SNOMED CT 54268730 / Confirmed Hypertension / SNOMED CT 8731906589 / Confirmed Histories Past Medical History: No active or resolved past medical history items have been selected or recorded. Family History: Patient was adopted. History is unknown. Procedure history: Colonoscopy ([id number]) on 06/01/2024 at 68 Years. Esophagogastroduodenoscopy (056938483) on 06/01/2024 at 68 Years. EGD (esophagogastroduodenoscopic) electrohydraulic lithotripsy of bezoar in stomach (6697930747) on06/15/2019 at 63 Years. Colonoscopy (719054896) on 08/02/2018 at 63 Years. Appendicectomy (366670541). Tonsillectomy (259088061). Gastric bypass (3075446917). Both knees (59661323). Tendonitis of left ankle (567928196592421). Caesarean section (19449270). Social History Social & Psychosocial Habits Alcohol 06/13/2025 Risk Assessment: Low Risk Substance Abuse 06/13/2025 Risk Assessment: Denies Substance Abuse Tobacco (more content not included)...[facility] HospitalComment on above:Result Comment: Electronically Signed By: Darci BRYANT, Glen Ta\.juanita\Date and Time Signed: 07/13/25 08:54 [id number] History of Present illness Narrative* Leonel Wharton MD - 04/28/2025 12:00 PM EDT Chief complaint: Chief Complaint Patient presents with Left Knee - Pain 69 y.o. female 2007 L TKAand 2021 L TKRevsion (Dr. Barber in [place]). Had a cat scratch infection in 2022 [...] aseptic results. Patient was offered referral to [facility] infectious disease for second [...] rule that out 1st. Vlad Joel M.D. Industrial Energy Engineer Hacksaw Inspector Adult Reconstructive Surgery Service Department of Orthopaedics [facility] documented in [facility] History of Present illness Narrative* Leah Barrera MD - 03/17/2025 11:20 AM EDT Subjective Patient ID: Renuka Padron is a 69 y.o. female who presents for Thyroid Nodule (Follow up ultrasoundTBH 01/24/25 ) and Ear Problem (Audio 03/14/25) Audio shows delfino moderate to severe SNHL and normal tymps. Pt requests referral to Dr Chase. Previously followed by Dr in [place]. US shows a [id number] RT nodule compared to 17s61b38hi one year ago. Family History Adopted: Yes [...] 03/17/2023 Atherosclerosis of artery 02/03/2024 Coronary atherosclerosis ([facility]/HCC) 03/03/2013 Cramps of left lower extremity [...] to other internal joint prosthesis, initial encounter ([facility]) 03/21/2023 Iron deficiency anemia 02/03/2024 Lingual tonsil hypertrophy 02/03/2024 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 ([facility]) 10/02/2022 LPRD (laryngopharyngeal reflux disease) 02/03/2024 Morbid obesity ([facility]) 03/03/2013 Multinodular goiter ([facility]) 02/03/2024 Obesity, Class III, BMI 40-49.9 (morbid obesity) ([facility]) 06/30/2017 Obstructive sleep apnea syndrome 06/05/2016 Primary osteoarthritis of left hip 02/03/2024 Osteoarthritis of knee 02/03/2024 Pulmonary HTN ([facility]) 07/06/2017 Restrictive lung disease 07/06/2017 Sciatica 02/03/2024 Thrombophlebitis 02/03/2024 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 ([facility]) 02/03/2024 Thrombophlebitis of left leg ([facility]) 02/03/2024 Urinary tract infection 02/03/2024 Abdominal infection ([facility]) 02/03/2024 Viral syndrome 02/03/2024 Diabetes mellitus ([facility]) 01/18/2025 Essential hypertension ([facility]) 02/18/2012 Fibromyalgia 07/06/2017 Resolved Ambulatory Problems Diagnosis Date Noted No Resolved Ambulatory Problems Past Medical History: Diagnosis Date Anxiety Asthma CAD (coronary artery disease) ([facility]) CHF (congestive heart failure) ([facility]) Diabetes 1.5, managed as type 2 ([facility]) ([facility]) GERD (gastroesophageal reflux disease) Hoarseness HTN (hypertension) ([facility]) JEREMY (obstructive sleep apnea) Pulmonary hypertension ([facility]) PVD (peripheral vascular disease) ([facility]) Seasonal allergies Stage 4 chronic kidney disease ([facility]) Vitamin D deficiency Past Surgical History: Procedure [...] then prn if stable. documented in this encounterMercy Hospital [id number] History of Present illness Narrative* BLAINE Ramirez [...] 1. Dr. Barrera 03-17-2025 documented in this encounterMercy Hospital [id number] History of Present illness Narrative* Leah Barrera MD - 01/18/2025 10:20 AM EDT Subjective Patient ID: Renuka Padron is a 69 y.o. female who presents for Swollen Glands Pt reports her glands were swollen, but have gone down now. Also c/o a 1 yr h/o delfino ear fullness. Family History Adopted: Yes Active Ambulatory Problems Diagnosis Date Noted Thyroid nodule ([facility]) 02/03/2024 LAD (lymphadenopathy) of left cervical region 02/03/2024 Abnormal results of cardiovascular function studies 03/03/2013 Acute renal insufficiency 02/03/2024 Allergic rhinitis 02/03/2024 Anemia 02/18/2012 Atrial septal defect within oval fossa 03/03/2013 Cellulitis 02/03/2024 Chronic combined systolic and diastolic congestive heart failure (CMS/HCC) 07/06/2017 Chronic right-sided congestive heart failure (CMS/HCC) 09/23/2023 CKD (chronic kidney disease), stage III (HCC) ([facility]) 09/23/2023 COPD (chronic obstructive pulmonary disease) (CMS/HCC) 03/17/2023 Atherosclerosis of artery 02/03/2024 Coronary atherosclerosis ([facility]/HCC) 03/03/2013 Cramps of left lower extremity [...] to other internal joint prosthesis, initial encounter ([facility]) 03/21/2023 Iron deficiency anemia 02/03/2024 Lingual tonsil hypertrophy 02/03/2024 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 ([facility]) 10/02/2022 LPRD (laryngopharyngeal reflux disease) 02/03/2024 Morbid obesity ([facility]) 03/03/2013 Multinodular goiter ([facility]) 02/03/2024 Obesity, Class III, BMI 40-49.9 (morbid obesity) ([facility]) 06/30/2017 Obstructive sleep apnea syndrome 06/05/2016 Primary osteoarthritis of left hip 02/03/2024 Osteoarthritis of knee 02/03/2024 Pulmonary HTN ([facility]) 07/06/2017 Restrictive lung disease 07/06/2017 Sciatica 02/03/2024 Thrombophlebitis 02/03/2024 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 ([facility]) 02/03/2024 Thrombophlebitis of left leg ([facility]) 02/03/2024 Urinary tract infection 02/03/2024 Abdominal infection ([facility]) 02/03/2024 Viral syndrome 02/03/2024 Diabetes mellitus ([facility]) 01/18/2025 Essential hypertension ([facility]) 02/18/2012 Fibromyalgia 07/06/2017 Resolved Ambulatory Problems Diagnosis Date Noted No Resolved Ambulatory Problems Past Medical History: Diagnosis Date Anxiety Asthma CAD (coronary artery disease) ([facility]) CHF (congestive heart failure) ([facility]) Diabetes 1.5, 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[facility]) GERD (gastroesophageal reflux disease) Hoarseness HTN (hypertension) ([facility]) JEREMY (obstructive sleep apnea) Pulmonary hypertension ([facility]) PVD (peripheral vascular disease) ([facility]) Seasonal allergies Stage 4 chronic kidney disease ([facility]) Vitamin D deficiency Past Surgical History: Procedure [...] F/U. Due for thyroid US. Schedule at [facility] documented in this encounterMercy Hospital [id number] History of Present illness Narrative* Estrella Angelo [...] plan. Estrella Angelo MD Orthopaedic Surgeon [facility] 01/06/2025 11:41 AM * Marilyn Weinstein [...] Chemistry: No results found for: PHART , CIV5FVO , PO2ART , M9ZFUTMY , TSO4RWT , PBEA , NBEA VITALS Pulse: 51 [...] arrousable, assessment and vitals initiated, patient instructed personalized living manager nurse light use and available to patient, patient [...] at bedside. * Corinne Gunter APRN - VETERANS' COORDINATOR - 01/05/2025 9:23 AM EDT Have been [...] and Rocío (Dr. Angelo's MA) states Dr Angeol will do these procedures under a local, but it is generally the patient asking for the anesthesia. Patient was contacted by commercial underwriter. Patient does have a radiophone operator (Dr Castanon), but it has been more [...] prior to arrival to the hospital. * Violtea Higgins RN - 12/28/2024 11:50 AM EDT Attempted PAT phone call; no answer; message left to return PAT phone call. Patient informed that Ihave no information on her in our system. I requested she gather up her medical history, medications, allergies and such then call me back. documented in this encounterBon Avita [facility]03-[facility] Hospital Discharge instructions* Discharge Instructions* Kaylee Esqueda [...] most local grocery stores, pharmacies, and chain [employer]stores. If you have any questions about your diet or nutrition, call the hospital and ask for the dietitian. General diet documented in this encounterBon Avita Health [facility]08-14-2024 NoteProgress Note-Physician Patient: RENUKA PADRON Age: 68 [...] # 120 tab(s), Refills(s) 0, [facility] Documented Medications Documented Fiber Tabs: 1 [...] Refills(s) 0, Prophylaxis fluticasone 0.05 mg/inh Nasal [place]: 2 spray(s), Nasal, Daily, Refill(s) 0, Allergy [...] tab, Oral, Daily fluticasone 0.05 mg/inh Nasal [place] 2 spray(s), Nasal, Daily gabapentin 300 mg [...] CHF (congestive heart failure) / SNOMED CT 20547435 / Confirmed COPD (chronic obstructive pulmonary disease) / SNOMED CT 85234377 / Confirmed Hypertension / SNOMED CT 3326953876 / Confirmed Kidney failure / SNOMED CT 56886027 / Confirmed Physical Examination Vital Signs 06/01/2024 [...] EDT Heart Rate Mon (more content not included)...[facility] HospitalComment on above:Result Comment: Electronically Signed By: Vlad Loera DO\.br\Date and Time Signed: 06/01/24 13:29 [id number] NotePatient Education - Text Endoscopy Care After Procedure Please read the instructions outlined below and refer to this sheet in the next few weeks. These discharge instructions provide you with general information on caring for [facility] Your doctor may also give you [...] Document Re-Released: 03/29/2007 ExitCare? Patient Information ?2009 [employer]. Colonoscopy Care After Surgery Please read the instructions outlined below and refer to this sheet in the next few weeks. These discharge instructions provide you with general information on caring for yourself [facility] Your doctor may also give you [...] that bowel contents c (more content not included)...[facility]08-14-2024 NoteEndoscopic Procedure Report - Other Patient: RENUKA PADRON Age: 68 years Sex: Female : 1955 Associated Diagnoses: None Author: Glen Bejarano MD Pre-Procedure Procedure Date 06/01/2024 13:10:00 . Procedure Type: Colonoscopy. Procedure provider Performed by Glen Bejarano MD. Current history and physical Documented on chart. Reviewed. EGD (esophagogastroduodenoscopic) electrohydraulic lithotripsy of bezoar in stomach (8464472239) on06/15/2019 at 63 Years. Colonoscopy (150929383) on 08/02/2018 at 63 Years. Appendicectomy (201202530). Tonsillectomy (545796705). Gastric bypass (8379256582). Both knees (26713929). Tendonitis of left ankle (795995721658378). Caesarean section ().. Past Medical History No active or resolved past medical history items have been selected or recorded.. Family History Patient was adopted. History is unknown.. Procedure History EGD (esophagogastroduodenoscopic) electrohydraulic lithotripsy of bezoar in stomach (9959338069) on06/15/2019 at 63 Years. Colonoscopy (498756409) on 08/02/2018 at 63 Years. Appendicectomy (254594727). Tonsillectomy (503889196). Gastric bypass (9545684557). Both knees (90667046). Tendonitis of left ankle (827453428365257). Caesarean section ().. Colorectal neoplasm risk assessment [...] Refills(s) 0, Prophylaxis fluticasone 0.05 mg/inh Nasal [place]: 2 spray(s), Nasal, Daily, Refill(s) 0, Allergy [...] Procedure images: [id number] (more content not included)...[facility] HospitalComment on above:Result Comment: Electronically Signed By: Darci BRYANT, Glen Ta\.br\Date and Time Signed: 06/01/24 13:11 EDTOther Comment: Missing Attachment - attachment storage system not supported 4579476 Can be viewed in source system Missing Attachment - attachment storage system not supported 8144198 Can be viewed in source systemMissing Attachment - attachment storage system not supported 7196602 Can be viewed in source systemMissing Attachment - attachment storage system not supported 8865324 Can be viewed in source systemMissing Attachment - attachment storage system not supported 1571744 Can be viewed in source systemMissing Attachment - attachment storage system not supported 7331318 Can be viewed in source systemMissing Attachment - attachment storage system not supported 4264128 Can be viewed in source systemMissing Attachment - attachment storage system not supported [id number] Can be viewed in source system 06-01-2024 [...] examined esophagus. Empiric dilation with Delcid 54 Egyptian was done, no mucosal disruption was noted [...] examined esophagus. Empiric dilation with Delcid 54 Egyptian was done, no mucosal disruption was noted [...] pathology results, follow-up in GI clinic next availableMarymount HospitalComment on above:Result Comment: Electronically Signed By: Darci BRYANT, Glen Ta\.br\Date and Time Signed: 06/01/24 12:35 EDTOther Comment: Missing Attachment - attachment storage system not supported [id number] Can be viewed in source system Missing Attachment - attachment storage system not supported 6640844 Can be viewed in source systemMissing Attachment - attachment storage system not supported 3488617 Can be viewed in source systemMissing Attachment - attachment storage system not supported 2970094 Can be viewed in source systemMissing Attachment - attachment storage system not supported 2088000 Can be viewed in source systemMissing Attachment - attachment storage system not supported 7600019 Can be viewed in source systemMissing Attachment - attachment storage system not supported 1729732 Can be viewed in source systemMissing Attachment - attachment storage system not supported 0511863 Can be viewed in source system 06-01-2024 [...] Refills(s) 0, Prophylaxis fluticasone 0.05 mg/inh Nasal [place]: 2 spray(s), Nasal, Daily, Refill(s) 0, Allergy [...] tab, Oral, Daily fluticasone 0.05 mg/inh Nasal [place] 2 spray(s), Nasal, Daily gabapentin 300 mg [...] CHF (congestive heart failure) / SNOMED CT 00663543 / Confirmed COPD (chronic obstructive pulmonary disease) / SNOMED CT 65015184 / Confirmed Hypertension / SNOMED CT 2620374199 / Confirmed Kidney failure / SNOMED CT 58868226 / Confirmed, Active Problems (4) CHF (congestive heart failure) COPD (chronic obstructive pulmonary disease) Hypertension Kidney failure Histories Past Medical History: No active or resolved past medical history items have been selected or recorded. Family History: Patient was adopted. History is unknown. Procedure history: EGD (esophagogastroduodenoscopic) electrohydr (more content not included)... [facility] HospitalComment on above:Result Comment: Electronically Signed By: Vlad Loera DO.br\Date and Time Signed: 06/01/24 11:29 EDT 11-03-2023 Evaluation note* Encounter Date Diagnosis Assessment Notes Treatment Notes Treatment Clinical Notes Oct, Asthma, moderate persistent (ICD -10 - J45.40) [employer] Other 09-19-2023 Evaluation note* Encounter Date Diagnosis Assessment Notes Treatment Notes Treatment Clinical Notes Jun, Asthma, moderate persistent (ICD -10 - J45.40) Jun,Morbid obesity (ICD-10 - E66.01) Jun,OSA (obstructive sleep apnea) (ICD-10 - G47.33) Jun,llergic rhinitis (ICD-10 - J30.9) Jun,ERD (gastroesophageal reflux disease) (ICD-10 - K21.9) [employer] Other 06-07-2023 History of Present illness Narrative* Jocelyn Muller RN - 03/25/2023 2:44 PM EDT Verbal report called and provided to receiving nurse, MARIBELL Alford at [facility]. Patient's current status and most recent vital [...] NOTE Patient Name: Renuka Padron MR #: [id number] Hospital Day: 7 Assessment and Plan: 1. [...] her debility she will discharge to [facility] to receive meropenem 2 g every 12 hours for 6 weeks. We will follow-up with her at that time and hopefully transition her to a lengthy course of oral therapy. ECF Nursing Instructions: 1)Picc Care 2)Qmon CBC,SR,Creat,CRP, fax to Dr. Angelo [phone] 3)IV ATB for 42 days 4)Call Dr. [...] intravenous Every 8 hours 03/24/23 2341 05/05/23 1864 Subjective/Objective: Comfortable Review of Systems: I have [...] Care 2)Qmon CBC,SR,Creat,CRP, fax to Dr. Angelo [phone] 3)IV ATB for 42 days 4)Call Dr. [...] met and the pt is cleared by [facility]. * Nik Cates RN - 03/25/2023 9:28 AM EDT Call received from Addi at [facility] Discharge orders can be faxed to [phone]. Report [phone]. Addi indicated she was updated yesterday that transport will be around noon. * Evelyn Jose MD - 03/25/2023 8:16 AM EDT [address] [place] [address] Query Response Note PATIENT: RENUKA PADRON : 1955 ADMIT DATE: 03/21/2023 12:44 PM DISCH DATE: RESPONDING PROVIDER #: [id number] CDI RESPONSE TEXT: See PN CDI QUERY [...] Echo-Mildly reduced LV systolic function -02/24/17 Lexiscan GEOGRAPHY HEAD-mildly diminished LV systolic function with an EF [...] -HTN -CKD Thank you, Chelsea Bearden RN, STITCH BONDING MACHINE OPERATOR, CDI. cell: [phone]. Options provided: -- Respond - Create new [...] opiates, and antibiotics to surgical service. Disposition: intermediate facility. Subjective Patient reports pain is currently [...] received a call from Addi at [facility] and they received [...] AMADO received a call from Cindy at [facility] inquiring possible duration of IV ATB therapy. [...] PM EDT AMADO spoke to Rosetta at [facility] and she confirmed the facility is still awaiting the precert from [facility]. Facility does request a repeat covid test day of discharge. CM will update the patient and also plan to complete a HENS and place in the discharge folder. * Amanda Gorman PTA - 03/24/2023 1:37 PM EDT [facility] Physical Therapy Treatment PT Discharge Recommendations: intermediate facility placement Distance Ambulated (ft): 50 Device: [...] PT POC until patient is d/c from [facility]. 03/24/23 1337 General Family/Caregiver Present No PT [...] PT Plan Skilled PT PT Discharge Recommendations intermediate facility placement Goals/Education Encounter Problems Encounter Problems [...] Gorman PTA - 03/24/2023 11:13 AM EDT [facility] Physical Therapy Treatment PT Discharge Recommendations: intermediate facility placement Distance Ambulated (ft): 50 Device: [...] PT POC until patient is d/c from [facility]. 03/24/23 1113 General Family/Caregiver Present No [...] PT Plan Skilled PT PT Discharge Recommendations intermediate facility placement Goals/Education Encounter Problems Encounter Problems [...] Call received from Addi in admissions at [facility]. Precert is still pending. Addi inquired if pt is wearing a CPAP. Per RT-pt is non-compliant and does not wear CPAP. * Renuka Mccabe, PT - 03/23/2023 12:37 PM EDT [facility] Physical Therapy Treatment PT Discharge Recommendations: intermediate facility placement Distance Ambulated (ft): 50 Device: [...] CM made OB call to Сергей at [place]-spoke to Addi in admissions- precert is still pending at this time. She has forwarded updated notes and will be in touch as soon as she hears anything. CM will continue to follow. * Renuka Mccabe PT - 03/23/2023 9:07 AM EDT [facility] Physical Therapy Treatment PT Discharge Recommendations: intermediate facility placement Distance Ambulated (ft): 45 Device: [...] for discharge to Subacute Rehab Facility ([facility] or [facility]) when cleared by PT and medically stable * Julia Meredith RN - 03/23/2023 7:26 AM EDT CM has sent updated PT and progress notes to Сергей at [place] via manual efax- [phone]-witha note checking on status of precert. CM [...] NOTE Patient Name: Renuka Padron MR #: [id number] Hospital Day: 4 Assessment and Plan: 1. [...] mg 25 mg oral Nightly PRN Valeriano Squries MD Lab Results Component Value Date WBC [...] be mentioned in the impression and plan. Cotl Angelo MD * Amanda Horvath, PT - 03/22/2023 11:25 AM EDT [facility] Physical Therapy Treatment PT Discharge Recommendations: intermediate facility placement Distance Ambulated (ft): 35 Device: [...] for discharge to Subacute Rehab Facility ([facility] or [facility]) when cleared by PT and medically stable * Amanda Horvath PT - 03/22/2023 10:05 AM EDT [facility] Physical Therapy Treatment PT Discharge Recommendations: intermediate facility placement Distance Ambulated (ft): 30 Device: [...] IVFs, pulse oximetry, and supplemental oxygen for DMWtW2tflu than 90%. Coronary Artery Disease ( I [...] Echo-Mildly reduced LV systolic function 02/24/17 Lexiscan GEOGRAPHY HEAD-mildly diminished LV systolic function with an EF [...] NOTE Patient Name: Renuka Padron MR #: [id number] Hospital Day: 3 Assessment and Plan: 1. [...] Beck, PT - 03/21/2023 12:55 PM EDT [facility] Physical Therapy Treatment PT Discharge Recommendations: intermediate facility placement Distance Ambulated (ft): 0, 30feet [...] AM EDT OB call to Сергей at [place] [phone]. NN spoke with [facility]. Per [facility] admissions staff are out of the office until Thursday. CM will continue to follow. * Yasmin Beck PT - 03/21/2023 9:57 AM EDT [facility] Physical Therapy Treatment PT Discharge Recommendations: intermediate facility placement Distance Ambulated (ft): 30 Device: [...] mobility. Education Comments No comments found. * iNk Cates RN - 03/21/2023 8:52 AM EDT [facility] Case Management Rounding Note Patient Renuka Dunn [...] for discharge to Subacute Rehab Facility ([facility] or [facility]) when cleared by PT and medically stable [...] Echo-Mildly reduced LV systolic function 02/24/17 Lexiscan GEOGRAPHY HEAD-mildly diminished LV systolic function with an EF [...] - 03/20/2023 2:03 PM EDT Rosetta from [facility] [employer] is requesting todays clinicals and manually faxed to her Efax of [phone] * Haley He PTA - 03/20/2023 12:25 PM EDT [facility] Physical Therapy Treatment PT Discharge Recommendations: intermediate facility placement Distance Ambulated (ft): 30 in [...] Date/Time User Outcome 03/20/23 1052 Haley He MANAGER OF MARKETING Progressing Goal: Pt will ambulate x150 ft [...] 03/20/2023 10:31 AM EDT Rosetta called from B[facility] at [place] and she received the updated clinicals sent this morning andshe will begin precert. Patient updated. * Debbie Kapadia RN - 03/20/2023 9:56 AM EDT Called Rosetta at [facility] [place] she is reviewing the referral now and faxed this mornings progress notes and PT note to her at [phone] * Haley He PTA - 03/20/2023 9:37 AM EDT [facility] Physical Therapy Treatment PT Discharge Recommendations: intermediate facility placement Distance Ambulated (ft): 30 Device: [...] for discharge to Subacute Rehab Facility ([facility] or [facility]) when cleared by PT and medically stable [...] Echo-Mildly reduced LV systolic function 02/24/17 Lexiscan GEOGRAPHY HEAD-mildly diminished LV systolic function with an EF [...] [facility]. Hypertension [...] and situation RESULTS : Hemoglobin A1c Order: [id number] Status: Final result Visible to patient: Yes [...] Vlad Fiore Reviewed and Electronically Signed By: Vlda Fiore Signed Date: 10/02/2022 15:22 Workstation ID: [...] Miller, PT - 03/19/2023 6:32 PM EDT [facility] Physical Therapy Evaluation PT Discharge Recommendations: intermediate facility placement Distance Ambulated (ft): 30 Device: [...] loosening of internal left knee prosthetic joint ([facility]/HCC) Mechanical loosening of internal left knee prosthetic joint, subsequent encounter S/P left knee surgery Past Medical History: Diagnosis Date Anemia Arthritis Asthma CHF (congestive heart failure) ([facility]) Chronic kidney disease CKD 2/3 COPD (chronic obstructive pulmonary disease) ([facility]) Dental disease full dentures Diabetes mellitus ([facility]) DVT of leg (deep venous thrombosis) ([facility]) 2021 left leg GERD (gastroesophageal reflux disease) [...] 1-2 times per day PT Discharge Recommendations intermediate facility placement PT - Evaluation Status Complete [...] PM EDT Followed up with Сергей at [place]. . Admissions does have a skilled bed And obtained updated fax number and refaxed referral to [phone]. * Debbie Kapadia RN - 03/19/2023 5:19 PM EDT 03/19/23 1718 Discharge Planning Living Arrangements Children Support Systems Children Assistance Needed skilled care Type of Residence Private residence Patient expects to be discharged to: SNF Does the patient need discharge transport arranged? No Follow Up Needs/Requests none Initial Transition Plan Initial Transition Plan Retirement Facility Back up Transition Plan Back up Transition plan Retirement Facility Patient is planning to go to SNF for Rehab [facility] in [place]. Will place a referral. Son to transport [...] requesting rehab at discharge documented in this encounterSouthwood Psychiatric [id number] Consult note* Colt Angelo MD - 03/20/2023 3:58 PM EDTAssociated Order(s): IP CONSULT TO INFECTIOUS DISEASES Images from the original note were not included. INFECTIOUS DISEASES CONSULTATION NOTE Patient Name: Renuka Padron Admit Date: [id number] MR #: [id number] : 1955 Hospital Day: 2 Date of [...] progressively worsened. [facility] and pain was severe. 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 store to tow picker a few things and was able [...] Anemia Arthritis Asthma CHF (congestive heart failure) ([facility]) Chronic kidney disease CKD 2/3 COPD (chronic obstructive pulmonary disease) ([facility]) Dental disease full dentures Diabetes mellitus ([facility]) DVT of leg (deep venous thrombosis) ([facility]) 2020 left leg GERD (gastroesophageal reflux disease) [...] 25 mg 25 mg oral TID PRN Valerinao Squires MD bisacodyL (DULCOLAX) suppository 10 mg [...] high level of complexity. Colt Angelo MD [facility] [id number] Consult note* Colt Angelo MD - 03/20/2023 3:58 PM EDTAssociated Order(s): IP CONSULT TO INFECTIOUS DISEASES Images from the original note were not included. INFECTIOUS DISEASES CONSULTATION NOTE Patient Name: Renuka Padron Admit Date: [id number] MR #: [id number] : 1955 Hospital Day: 2 Date of [...] progressively worsened. [facility] and pain was severe. 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 store to tow picker a few things and was able [...] Anemia Arthritis Asthma CHF (congestive heart failure) ([facility]) Chronic kidney disease CKD 2/3 COPD (chronic obstructive pulmonary disease) ([facility]) Dental disease full dentures Diabetes mellitus ([facility]) DVT of leg (deep venous thrombosis) ([facility]) 2020 left leg GERD (gastroesophageal reflux disease) [...] 50 mg 50 mg oral Nightly Valeriano Suqires MD 50 mg at 03/19/232006 traZODone (DESYREL) [...] into right arm per hospital protocol Indications: On Call IV therapy, Home IV therapy Insertion: Bedside [...] prevention, CLABSI, and PICC procedural information. [employer] Lot #: [id number] * Jessica Briseno RN - 03/20/2023 10:[address] Henderson, patient's fur feeder, has okayed patient for a PICC line. [...] Echo-Mildly reduced LV systolic function 02/24/17 Lexiscan GEOGRAPHY HEAD-mildly diminished LV systolic function with an EF [...] prevention will be [facility] the [facility] per protocol. Hypertension [...] 2017 Cardiac clearance from 09/25/22; Dr. Campos DCK-hkz-ofrjnjovh with CPAP CKD Stage 4-baseline creat 1.04 [...] reaction No Previous Transfusion Related Reactions No Roman Catholic Reasons To Avoid Blood Transfusions ANESTHESIA HISTORY [...] Echo-Mildly reduced LV systolic function 02/24/17 Lexiscan GEOGRAPHY HEAD-mildly diminished LV systolic function with an EF [...] 03/19/2023 GLUCOSE 97 03/19/2023 documented in this encounterSouthwood Psychiatric [id number] Hospital course Narrative* Debbie Kapadia RN - [...] dressing every seven days and as needed. [facility] -PT/OT Eval for Gait training, ADL'S, bed mobility, transfers, rom and strengthening, venous returnexercises and modalities prn. -WBAT LLE -FWW for gait assist Please follow surgeon's discharge instructions and prescription directions. Surgeon' discharge instructions are in patient's folder- FOLLOW SURGEON INSTRUCTION SHEETS Contact Surgeon's office with any questions/concerns [phone] -Plasma Flow SCD'S Compression leg pumps on Bilateral Legs for 20 hours per day x 2 weeks for additional DVT prevention- SEE SURGEONS INSTRUCTION SHEETS FOR DIRECTIONS -use over the counter stool softeners to prevent constipation - Prevena wound vac - Patient to call office and schedule an appointment to have prevena removed on03/27/2023- [phone]- per conversation with Dr. Santos- if patient is unable to make this appointment due to transportation issues- patient to follow instructions below- patient is aware that it isthe preference for prevena to be removed in office -When Prevena Wound Vac lifespan alarms, please remove the wound vac dressing. Take a photo of the incision and email : [email or web address]. Then apply Optifoam dressing that is in your discharge folder. -Call for a 2-3 week follow up appointment and any questions or concerns. Verify Office location when scheduling. [phone] * Portia Sue RN - 03/18/2023 2:28 [...] prior to your surgery. Check in at bookkeeper receptionist desk [address], [place] [address]. If Outpatient, these additional instructions apply: An adult must stay with you the whole time you are here and drive you home. An adult must stay withyou at home for 24 hours due to Anesthesia. If you have JEREMY, you are required to stay 3 hours after your surgery before we can discharge you. documented in this [facility]06-02-2023 Hospital Discharge instructions* Discharge Instructions* Colt Angelo MD - 03/20/2023 11:06 AM EDT [facility] Nursing Instructions: 1)Picc Care 2)Qmon CBC,SR,Creat,CRP, fax to Dr. Angelo [phone] 3)IV ATB for 42 days 4)Call Dr. [...] nutrition/TPN (total parenteral nutrition) Blood products Chemotherapy halfway antibiotics Blood draws Will a PICC affect [...] DVT (Deep Vein Thrombosis): Prevention: General Info (Citizen Of [place]) * Incentive Spirometer: General Info (Citizen Of [place]) * Fall Prevention (Citizen Of [place]) * Opioids: General Info (Citizen Of [place]) * Constipation (Citizen Of [place]) * PICC (Peripherally Inserted Central Catheter) (Citizen Of [place]) * Antibiotics: General Info (Citizen Of [place]) * rivaroxaban (Citizen Of [place]) documented in this encounterSouthwood Psychiatric HospitalEisatn30-59-7199 Consult note* Jessica Briseno RN - 03/20/2023 11:04 AM EDTAssociated Order(s): IP CONSULT TO IV TEAM PICC Line Insertion Procedure Note Procedure: Insertion of 4 FR SL Power and PICC into right arm per hospital protocol Indications: On Call IV therapy, Home IV therapy Insertion: Bedside [...] prevention, CLABSI, and PICC procedural information. [employer] Lot #: [id number] Be [id number] Consult note* Jessica Briseno RN - 03/20/2023 10:[address] Henderson, patient's fur feeder, has okayed patient for a PICC line. Be [id number] History and physical note* Anusha Barber MD - 03/19/2023 11:54 AM EDT History and Physical Update ( H&P completed within the previous thirty days ) I personally reviewed the History and Physical, interviewed and examined the patient prior to surgery. No changes have occurred in the patient's condition since the History and Physical was completed. [employer] Work Phone: 1(567) 946-159706-01-2023 History and physical note* Anusha Barber MD - 03/19/2023 11:54 AM EDT History and Physical Update ( H&P completed within the previous thirty days ) I personally reviewed the History and Physical, interviewed and examined the patient prior to surgery. No changes have occurred in the patient's condition since the History and Physical was completed. documented in this encounterSouthwood Psychiatric HospitalZopgok76-49-4563 Procedure note* Anusha Barber MD - 03/19/2023 10:22 AM EDT Operative Note Patient Name: RENUKA PADRON Date of Service: March 19, 2023 Date of : 1955 Clinician: ANUSHA BARBER MD Facility: [facility] Location: [facility] PREOPERATIVE DIAGNOSIS: Left knee periprosthetic joint infection. POSTOPERATIVE DIAGNOSIS: Left knee periprosthetic joint infection. PROCEDURES PERFORMED: 1. Left knee polyethylene exchange. 2. Left knee irrigation and debridement. SURGEON: Anusha Barber MD IMPLEMENT MECHANIC: Kaur Pierre PA-C ANESTHESIA: General endotracheal anesthesia. [...] was then let down.Hemostasis was obtained. A 10-Egyptian drain was placed in the knee. The [...] patient. ANUSHA BARBER MD TT: 03/19/2023 15:47:00 [facility] Psychiatric [id number] Procedure note* Anusha Barber MD - 03/19/2023 10:22 AM EDT Operative Note Patient Name: RENUKA PADRON Date of Service: March 19, 2023 Date of : 1955 Clinician: ANUSHA BARBER MD Facility: [facility] Location: [facility] PREOPERATIVE DIAGNOSIS: Left knee periprosthetic joint infection. POSTOPERATIVE DIAGNOSIS: Left knee periprosthetic joint infection. PROCEDURES PERFORMED: 1. Left knee polyethylene exchange. 2. Left knee irrigation and debridement. SURGEON: Anusha Barber MD IMPLEMENT MECHANIC: Kaur Pierre PA-C ANESTHESIA: General endotracheal anesthesia. [...] was then let down.Hemostasis was obtained. A 10-Egyptian drain was placed in the knee. The [...] patient. ANUSHA BARBER MD TT: 03/19/2023 15:47:00 [facility] documented in this encounterSouthwood Psychiatric [id number] Consult note* Valeriano Squires MD - 03/19/2023 7:53 AM EDT Chief complaint: [facility] - PREOPERATIVE MEDICAL RISK STRATIFICATION Patient Name : Renuka Padron Patient : 1955 Patient Admission Diagnosis : Left knee infection Referring Physician : Dr. Anusha Barbre Provider Name : Valeriano Squires MD Date [...] Echo-Mildly reduced LV systolic function 02/24/17 Lexiscan GEOGRAPHY HEAD-mildly diminished LV systolic function with an EF [...] prevention will be [facility]. Hypertension [...] 2017 Cardiac clearance from 09/25/22; Dr. Campos YAZ-hmh-pzxziyhrz with CPAP CKD Stage 4-baseline creat 1.04 [...] reaction No Previous Transfusion Related Reactions No Roman Catholic Reasons To Avoid Blood Transfusions ANESTHESIA HISTORY [...] Echo-Mildly reduced LV systolic function 02/24/17 Lexiscan GEOGRAPHY HEAD-mildly diminished LV systolic function with an EF [...] 03/19/2023 CREATININE 1.10 03/19/2023 GLUCOSE 97 03/19/2023 RenateHairboboQxhgpw28-83-9906 History of Present illness Narrative* Encounter Date Complaint History Of Prese nt Illness Follow Up Left Knee Modifying Fa ctors: Previous Surgery: LK poly exchange DAC 10/02/22. Previous Surgery: LTKA 12/25/2014 Dr Pineda. Previous Surgery: RTKA 08/17/2017 Dr Pineda. Comments: Patient fell out of bed two weeks ago and landed on her knees. She went to the emergency room on 03/15/23 and [facility] said there wasn't a fracture present on [...] MANUEL injection within the next few days. [facility] Work Phone: 1(812) 891-272304-24-2023 Evaluation note* Encounter Date Diagnosis Assessment Notes [...] Jan,Low back derangement syndrome (ICD-10 - M53.86) [employer] Other 03-21-2023 Evaluation note* Encounter Date Diagnosis Assessment Notes Treatment Notes Treatment Clinical Notes Dec, Asthma, moderate persistent (ICD -10 - J45.40) Dec,Morbid obesity (ICD-10 - E66.01) Dec,OSA (obstructive sleep apnea) (ICD-10 - G47.33) Dec,llergic rhinitis (ICD-10 - J30.9) Dec,ERD (gastroesophageal reflux disease) (ICD-10 - K21.9) [employer] Other 03-02-2023 NoteCONSULTATION CONSULTATION DATE: 12/18/2022 HISTORY: This is a 67-year-old female who returns to the clinic for medication maintenance for her chronic left knee pain. The patient had a total knee replacement done on October 02, 2022 and this was done by Dr. Richard martinez in [place]. She, for a short time, was in [...] prescription, and she agrees with this plan.[facility] HospitalJsxqqbxc83-50-3788 Evaluation note* Encounter Date Diagnosis Assessment Notes Treatment Notes Treatment Clinical Notes Nov, Pre-diabetes (ICD-10 - R73.09) [employer] Other 12-19-2022 History of Present illness Narrative* [...] - 10/06/2022 2:55 PM EST [facility] [place] Physical Therapy Treatment PT Discharge Recommendations: intermediate facility placement Distance Ambulated (ft): 50 (0p27grmo, 0t59qhsp) Device: Rolling walker L Knee Flexion 0-140: [...] Rolling walker Distance Ambulated (ft) 50 Comments d40ntfr, j79sjue with FWW Procedures Procedures Gait Training;Therapeutic Exercise Gait Training Gait Training Time Entry 15 Gait Training Activity 1 Gait training y04jocl to toilet cga Gait Training Activity 2 Gait training e60hxkx after toileting task, cga Therapeutic Exercise Therapeutic [...] AM EST CM updated by Zunilda at [facility] that precert had been obtained and they were able to admit patient to facility today. CM updated patient at bedside and she was updating her insurance company to keep scheduled transport time of noon. CM has faxed HENS, discharge RX, instructions and orders to [facility]: [phone]. RX in folder: oxycodone, xarelto and zofran Discharge packet completed, will place at Nurse's Station. No further CM needs at this time. RN number for report: [phone] * Yasmin Beck PT - 10/06/2022 9:51 AM EST [facility] PT Discharge Recommendations: intermediate facility placement Distance Ambulated (ft): 45 Device: [...] stance time Distance Ambulated (ft) 45 Comments p37fmix with FWW, e15hvpi with FWW after toileting AROM LLE (degrees) L Knee Flexion 0-140 0-77 Procedures Procedures Gait Training;Therapeutic Exercise Gait Training Gait Training Time Entry 15 Gait Training Activity 1 Gait with FWW y87mdnh prior to toileting cga Gait Training Activity 2 Gait with FWW f94yhoi after toileting, using personal FWW Therapeutic Activity [...] that CM has spoken with admissions at [facility] and they are still awaiting [...] AM EST AMADO made OB call to [facility]- [phone]-spoke with Thuy in admissions- she has already sent a note to insurance [employer] this morning to check on precert status. CM has faxed updated PT and progress notes to [phone]- will update patient at bedside that we [...] in addition with additional sliding scale insulin. Utpcd-mv-jdmy glucose results have been reviewed. 0 Lab [...] for discharge to Subacute Rehab Facility ([facility]) when cleared by PT and medically stable [...] End of Shift Summary: * Amandasarah Gorman, MANAGER OF MARKETING - 10/05/2022 12:50 PM EST [facility] Physical Therapy Treatment PT Discharge Recommendations: intermediate facility placement Distance Ambulated (ft): 30 Device: [...] care until patient is discharged from [facility]. Objective 10/05/22 1250 General Family/Caregiver Present [...] PT Plan Skilled PT PT Discharge Recommendations intermediate facility placement Goals/Education Encounter Problems Encounter Problems [...] for discharge to Subacute Rehab Facility ([facility] or [facility]) when cleared by PT and medically stable * Amanda Gorman, MANAGER OF MARKETING - 10/05/2022 9:42 AM EST [facility] Physical Therapy Treatment PT Discharge Recommendations: intermediate facility placement Distance Ambulated (ft): 30 Device: [...] of care untilpatient is discharged from [facility]. Objective 10/05/22 0942 General Family/Caregiver Present [...] PT Plan Skilled PT PT Discharge Recommendations intermediate facility placement Goals/Education Encounter Problems Encounter Problems [...] 10/04/2022 12:36 PM EST OB call to [facility]. Per Yaz: admission is not [...] for discharge to Subacute Rehab Facility ([facility] or ECF) when cleared by PT and medically stable * Beckie Sunshine, PT - 10/04/2022 9:50 AM EST [facility] [place] Physical Therapy Treatment PT Discharge Recommendations: intermediate facility placement DISPOSITION/PLAN: PT is recommending therapy [...] Patient received recumbent in room 226 at [facility] Please refer to OBJECTIVE assessment, TREATMENT and [...] 1-2 times per day PT Discharge Recommendations intermediate facility placement Goals/Education Encounter Problems Encounter Problems [...] 10/03/2022 6:11 PM EST HENS COMPLETE to [facility] * Amanda Gorman PTA - 10/03/2022 3:07 PM EST Patient sleeping soundly and did not rouse to name of knock. Will attempt again in am. * Debbie Kapadia RN - 10/03/2022 2:28 PM EST Zunilda from [facility] will accept the patient pending precert and patient updated * Meghann Angelo - 10/03/2022 12:08 PM EST 10/03/22 1208 Clinical Encounter Type Visited With Patient Time Spent 15 Minutes Type of Contact Introduction SPIRITUAL CARE ASSESSMENT Spiritual Care Assessment: Pt appropriate and coping supported by family and melinda expressed hope Spiritual Intervention: Active listening Hospitality provided [place] given Outcome: Pt shared feeling and hope Plan: PC will return at pt/family request. * Debbie Kapadia RN - 10/03/2022 11:36 AM EST Into see the patient and updated that [facility] is reviewing the referral. N * Debbie Kapadia RN - 10/03/2022 10:36 AM EST [place] admissions called back the they do not have beds and will not until mid next week. PABLO ODONNELL Rep. Reports the patient just told her to tell me when she delivered her leg pumps of a [facility] in [place] and called [phone] spoke to Zunilda and she does have beds and referral faxed to her at [phone]. N Kapadia RN - 10/03/2022 9:50 AM EST Rosetta from [facility] has no beds Patient would like a referral to [facility] in [place] and called them [phone] Admissions in a meeting but they would like the referral sent to [facility] [phone] and sent. Patient will look for a 3rd choice if needed. * Amanda Gorman MANAGER OF MARKETING - 10/03/2022 8:55 AM EST [facility] Physical Therapy Treatment PT Discharge Recommendations: intermediate facility placement Distance Ambulated (ft): 30 Device: [...] care until patient is discharged from [facility]. Objective 10/03/22 0855 General Family/Caregiver Present [...] 1-2 times per day PT Discharge Recommendations intermediate facility placement Goals/Education Encounter Problems Encounter Problems [...] for discharge to Subacute Rehab Facility ([facility] or ECF) when cleared by PT and medically stable * Debbie Kapadia RN - 10/02/2022 4:34 PM EST Spoke to Rosetta in admissions at [facility] and she does not know what fax [phone] isbut her fax is [phone] and manually faxed the referral but she also does not have beds until next week She would need to look at her beds to determine what day. Currently she is helping in the cafeteria but she will review and get back with CM tomorrow. * Amanda Horvath PT - 10/02/2022 3:00 PM EST [facility] Physical Therapy Evaluation PT Discharge Recommendations: intermediate facility placement Distance Ambulated (ft): 30 Device: [...] loosening of internal left knee prosthetic joint ([facility]) Past Medical History: Diagnosis Date Anemia Asthma Chronic kidney disease CKD 2/3 COPD (chronic obstructive pulmonary disease) ([facility]) Diabetes mellitus ([facility]) DVT of leg (deep venous thrombosis) ([facility]) 2020 left leg GERD (gastroesophageal reflux disease) [...] of Steps 3 Prior Function Level of [place] Independent with mobility and functional transfers Receives [...] 1-2 times per day PT Discharge Recommendations intermediate facility placement Equipment Recommended [facility] PT - [...] none Initial Transition Plan Initial Transition Plan Retirement Facility Back up Transition Plan Back up Transition plan Retirement Facility Plan is SNF and requesting [facility] in [place] * Anusha Sung DO - 10/02/2022 1:34 [...] she would like to go to [facility] in [place] at discharge. She has no one at home to help her. documented in this encounterSouthwood Psychiatric [id number] Hospital course Narrative* Debbie Kapadia RN - 10/03/2022 5:58 PM EST [facility] -PT/OT Eval for Gait training, ADL'S, bed mobility, transfers, knee rom and strengthening, venous return exercises and modalities prn. Please follow surgeon's discharge instructions and prescription directions. Surgeon' discharge instructions are in patient's folder- FOLLOW SURGEON INSTRUCTION SHEETS Contact Surgeon's office with any questions/concerns [phone] -When Prevena Wound Vac lifespan alarms IN 7 DAYS FROM SURGERY please remove the wound vac dressingOR HAVE A FOLLOW UP SCHEDULED FOR 10/09/22 TO HAVE THE OFFICE REMOVE. CALL TO SCHEDULE THIS APPOINTMENT IF YOU WANT THE OFFICE TO REMOVE. Take a photo of the incision and email : [email or web address] apply Optifoam dressing that is in your discharge folder. ---A wound check will be performed at one week which can be done either by in person by scheduling a follow up visit in one week with Dr. BARBER in clinic by calling [phone], or virtually via store and forward telehealth. If you are opting for a virtual one-week wound check: 1. Please remove Prevena dressing only after therapy has completed as indicated by the device. 2. Take a photo of your wound and E-mail the photo to [email or web address] with Attn Dr. Rodas in the subject [...] or concerns. Verify Office location when scheduling. [email or web address] [phone] * Shilpi Rodriguez RN - 10/01/2022 9:36 [...] prior to your surgery. Check in at bookkeeper receptionist desk [address] [place] [address]. If Outpatient, these additional instructions apply: An adult must stay with you the whole time you are here and drive you home. An adult must stay withyou at home for 24 hours due to Anesthesia. If you have JEREMY, you are required to stay 3 hours after your surgery before we can discharge you. documented in this encounterSouthwood Psychiatric [id number] Procedure note* Anusha Barber MD - 10/02/2022 11:31 AM EST 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 The pilot captain was [employer] . The poly locked [...] good position and alignment of the components. IMPLEMENT MECHANIC/ATTENDING PARTICIPATION: Carlos Gomez DO assisted with proper [...] By: Anusha Barber MD, on 10/02/2022 12:05:[address] [facility], A Member of [facility] OPERATIVE REPORT PATIENT NAME: Renuka Padron DATE OF : 1955 CSN: [id number] SURGEON: Anusha Barber MD DATE OF SERVICE: 10/02/2022 DATE OF SURGERY: 10/02/2022 REF [id number] LOT [id number] LUIS F [employer]-E 16 Millimeter Tibial insert Use By 2024-11-18 [id number] (12) [id number] (40) [id number] [facility] Psych[facility] HospitalXfeyau05-84-1360 Procedure note* Anusha Barber MD - 10/02/2022 11:31 AM EST 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 The pilot captain was [employer] . The poly locked [...] good position and alignment of the components. IMPLEMENT MECHANIC/ATTENDING PARTICIPATION: Carlos Gomez DO assisted with proper [...] By: Anusha Barber MD, on 10/02/2022 12:05:[address] [facility], A Member of [employer] OPERATIVE REPORT PATIENT NAME: Renuka Padron DATE OF : 1955 CSN: [id number] SURGEON: Anusha Barber MD DATE OF SERVICE: 10/02/2022 DATE OF SURGERY: 10/02/2022 REF [id number] LOT [id number] PERSONJulio Csear [employer]-E 16 Millimeter Tibial insert Use By 2024-11-18 [id number] (86) [id number] (51) [id number] documented in this encounterGreenwald [id number] History and physical note* Anusha Barber MD - 10/02/2022 10:29 AM EST History and Physical Update ( H&P completed within the previous thirty days ) I personally reviewed the History and Physical, interviewed and examined the patient prior to surgery. No changes have occurred in the patient's condition since the History and Physical was completed. [employer] Work Phone: [phone] 364-131112-15-2022 History and physical note* Anusha Barber MD - 10/02/2022 10:29 AM EST History and Physical Update ( H&P completed within the previous thirty days ) I personally reviewed the History and Physical, interviewed and examined the patient prior to surgery. No changes have occurred in the patient's condition since the History and Physical was completed. documented in this encounterGreenwald [id number] Evaluation note* Encounter Date Diagnosis Assessment Notes [...] UA 3.7 Sep,therHemoglobin stable on ferrous sulfate. [employer] Other 12-01-2022 NoteCONSULTATION CONSULTATION DATE: 09/18/2022 This is a 67-year-old female who returns to the clinic for a 3-month follow-up for chronic lower back pain, left hip pain and left knee pain. She was last seen on 05/29/2022. At that time, she was in the process of having a workup from Orthopedics in [place] pending left knee and hip replacement. Today she reports that she is having a left total knee done on 10/[address] Barber in [place]. At her last appointment she was ordered [...] time for a follow-up unless otherwise indicated.[facility] HospitalKlzgykqa03-47-0460 Evaluation note* Encounter Date Diagnosis Assessment Notes [...] 2022Low back derangement syndrome (ICD-10 - M53.86) [employer] Other 09-13-2022 Evaluation note* Encounter Date Diagnosis [...] 13 Jun, 2022Medication management (ICD-10 - Z79.899) [employer] Other 08-11-2022 NoteCONSULTATION CONSULTATION DATE: 05/29/2022 HISTORY [...] t.i.d., tizanidine 4 mg b.i.d., Topamax and [place] 5/325 b.i.d. She was seen by Dr. Desai, who referred her to an orthopedic high customer solutions specialist down in [place] regarding her left hip arthrosis. She is in need of a total left hip replacement, but she was sent to complete four weeks of therapy for strengthening prior to the surgery. The combination of her lower back pain and hip pain increases her pain. At rest, her pain is 4/10. With activity, it is 8-9/10. The patient feels the [place] is not as helpful as it has [...] the patient, she must bring in her [place] to be disposed of prior to starting the Percocet. She is in agreement to this. The intent is to go down to daily following her hip replacement and following lumbar rhizotomy. Patient will be brought in post procedure.[facility] HospitalOafishei10-38-4321 Evaluation note* Encounter Date Diagnosis Assessment Notes [...] - E88.81) May,Medication management (ICD-10 - Z79.899) [employer] Other 07-07-2022 NoteCONSULTATION CONSULTATION DATE: 04/24/2022 This [...] total knee replacements. She was currently taking [place] 5/325, 1.5 mg q. day. In addition, she takes gabapentin, tizanidine and Topamax. She was on Plavix but has been taken off of that two weeks ago. The patient recently saw her PCP and he suggested that the [place] be increased to b.i.d. for better management [...] degenerative disk and lumbar spondylosis. PLAN: Her [place] will be refilled at 5/325 b.i.d. After discussion with the patient, she agrees to move forward with the lumbar epidural steroid injection with sedation only. The patient agrees to this and was educated regarding her vitamins and magnesium. She will be followed up in the clinic post-procedure. [facility] Signed and Approved by: GIULIA PICHARDO . 05/01/2022 09:48:00[facility]06-29-2022 Evaluation note* Encounter Date Diagnosis Assessment Notes [...] - E88.81) Mar,Medication management (ICD-10 - Z79.899) [employer] Other 06-28-2022 Evaluation note* Encounter Date Diagnosis Assessment Notes Treatment Notes Treatment Clinical Notes Mar, Asthma, moderate persistent (ICD -10 - J45.40) Mar,Morbid obesity (ICD-10 - E66.01) Mar, (obstructive sleep apnea) (ICD-10 - G47.33) Mar,llergic rhinitis (ICD-10 - J30.9) Mar,GERD (gastroesophageal reflux disease) (ICD-10 - K21.9) [employer] Other 06-15-2022 Evaluation note* Encounter Date Diagnosis [...] next visit Mar,therHemoglobin stable on ferrous sulfate. [employer] Other 05-26-2022 Evaluation note* Encounter Date Diagnosis Assessment Notes Treatment Notes Treatment Clinical Notes February, Edema of extremities (ICD-10 - R 60.0) [employer] Other 04-20-2022 Evaluation note* Encounter Date Diagnosis [...] I50.9) Jan,Metabolic syndrome X (ICD-10 - E88.81) [employer] Other 04-11-2022 Evaluation note* Encounter Date Diagnosis Assessment Notes Treatment Notes Treatment Clinical Notes Jan, Acute right-sided thoracic back pain (ICD-10 - M54.6) [employer] Other 02-23-2022 Evaluation note* Encounter Date Diagnosis Assessment Notes Treatment Notes Treatment Clinical Notes Nov, Other chronic pain (ICD-10 - G89 .29) [employer] Other 02-15-2022 Evaluation note* Encounter Date Diagnosis Assessment Notes Treatment Notes Treatment Clinical Notes Nov, Other chronic pain (ICD-10 - G89 .29) [employer] Other 01-18-2022 Evaluation note* Encounter Date Diagnosis [...] I50.9) Oct,Metabolic syndrome X (ICD-10 - E88.81) [employer] Other 01-18-2022 Evaluation note* Encounter Date Diagnosis [...] cannot say how often she uses it. [employer] Other 12-16-2021 Evaluation note* Encounter Date Diagnosis Assessment Notes Treatment Notes Treatment Clinical Notes Sep, Other chronic pain (ICD-10 - G89 .29) [employer] Other 12-08-2021 Evaluation note* Encounter Date Diagnosis [...] - D63.1) Hemoglobin stable on ferrous sulfate. [employer] Other 11-18-2021 Evaluation note* Encounter Date Diagnosis Assessment Notes Treatment Notes Treatment Clinical Notes Aug, Hyperuricemia (ICD-10 - E79.0) Aug,Other chronic pain (ICD-10 - G89.29) [employer] Other 10-29-2021 Evaluation note* Encounter Date Diagnosis Assessment Notes Treatment Notes Treatment Clinical Notes Jul, Lower extremity edema (ICD-10 - R60.0) [employer] Other 10-13-2021 Evaluation note* Encounter Date Diagnosis Assessment Notes Treatment Notes Treatment Clinical Notes Jul, Other chronic pain (ICD-10 - G89 .29) Jul,cute right-sided thoracic back pain (ICD-10 - M54.6) [employer] Other 10-13-2021 Evaluation note* Encounter Date Diagnosis Assessment Notes Treatment Notes Treatment Clinical Notes Jul, Other chronic pain (ICD-10 - G89 .29) [employer] Other 10-07-2021 Evaluation note* Encounter Date Diagnosis [...] with her we will contact diabetic shoe [employer]. Jul,ower extremity edema (ICD-10 - R60.0) stopped [...] has been off at least a month. [employer] Other 09-23-2021 Evaluation note* Encounter Date Diagnosis [...] I50.9) Jun,Metabolic syndrome X (ICD-10 - E88.81) [employer] Other 09-22-2021 Evaluation note* Encounter Date Diagnosis Assessment Notes Treatment Notes Treatment Clinical Notes Jun, Asthma, moderate persistent (ICD -10 - J45.40) Jun,Morbid obesity (ICD-10 - E66.01) Jun,OSA (obstructive sleep apnea) (ICD-10 - G47.33) Jun,llergic rhinitis (ICD-10 - J30.9) Jun,GERD (gastroesophageal reflux disease) (ICD-10 - K21.9) Merged With [facility] Where Other consult note* Clinical Note Date No Information [facility] Work Phone: Discharge summary* Clinical Note Date No Information [facility] Work Phone: Evaluation noteNo InformationNortRegional [facility] Where Other Evaluation note* Diagnosis Onset Date Resolution Status Iron deficiency anemia chronicThrombophlebitischronic [facility] Work Phone: Evaluation note* Diagnosis Mechanical loosening of internal left knee prosthetic joint, subsequent encounter- Primary Mechanical loosening of internal left knee prosthetic joint, 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, subsequent encounter documented in this encounter [facility]* Diagnosis S/P left knee surgery- Primary Infection and inflammatory reaction due to other internal joint prosthesis, initial encounter (CMS/HCC) Infection and inflammatory reaction due to other internal joint prosthesis, initial encounter ([facility]) documented in this encounter [facility] HospitalEvaluation noteNo assessment information availableRegency Hospital Cleveland East Work Phone: Evaluation note* Author Yuan Romeo [facility] HospitalhoredClermont [facility] 2023 2:53pmPatient is stable with lack of insurance coverage for Symbicort. It appears that patient's best choice for insurance coverage of medications should be Advair Diskus. [facility] Work Phone: Evaluation note* Type Assessment Date No Information [facility] Work Phone: Evaluation note* Diagnosis Onset Date Resolution Status Admit Date Contact with and (suspected) exposure to covid-19 noneactiveJanuary 2024 12:18pm [facility] Work Phone: Evaluation note* Diagnosis Hypotension after procedure- Primary Hypotension after procedure COPD (chronic obstructive pulmonary disease) (HCC) Chronic airway obstruction, not elsewhere classified Diabetes mellitus (HCC) Type II or unspecified type diabetes mellitus without mention of complication, not stated as uncontrolled Hypertension Unspecified essential hypertension Stage 4 chronic kidney disease (HCC) documented in this encounter [facility]* Diagnosis ETD (Eustachian tube dysfunction), bilateral- Primary Ear fullness, bilateral Swollen gland Multinodular goiter (CMS/HCC) Nontoxic multinodular goiter documented in this encounter [facility] HealthcareEvaluation note* Diagnosis Sensorineural hearing loss, bilateral- Primary Tinnitus, bilateral Unspecified tinnitus documented in this encounter [facility] HealthcareEvaluation note* Diagnosis Allergic rhinitis, unspecified seasonality, unspecified trigger- Primary Sensorineural hearing loss (SNHL), bilateral Nontoxic multinodular goiter (CMS/HCC) Nontoxic multinodular goiter documented in this encounter [facility] HealthcareEvaluation note* Diagnosis Left knee pain, unspecified chronicity- Primary Left hip pain Pain in joint, pelvic region and thigh History of total knee arthroplasty, left Primary osteoarthritis of left hip Primary localized osteoarthrosis, pelvic region and thigh Left hip pain Pain in joint, pelvic region and thigh Left knee pain, unspecified chronicity [facility] encounter [facility]* Diagnosis Left knee pain, unspecified chronicity documented in this encounter [facility]* Diagnosis Left hip pain Pain in joint, pelvic region and thigh documented in this encounter [facility]* Diagnosis Onset Date Resolution Status Admit Date ANS (arteriolar nephrosclerosis) acuteSept2024 1:40pmChronic kidney disease, stage 2 (mild)acute July 12, 2025 1:40pmHyperparathyroidismacuteSept2024 1:40pm HyperuricemiaacuteSept2024 1:40pmHypomagnesemiaacuteSept2024 1:40pmLocalized edemaacuteSept2024 1:40pmVitamin B12 deficiency acuteSept2024 1:40pmVitamin D deficiencyacuteSept2024 1:40pm [facility] Work Phone: History and physical note* Clinical Note Date No Information [facility] Work Phone: History general Narrative - Reported* [...] HistoryOSAMedical HistoryEsophageal refluxSurgical History appendectomySurgical HistorytonsillectomySurgical Historygastric [id number] Surgical HistoryCaesarean sectionSurgical Historyleft knee arthroplastySurgical HistoryEVLT Right [id number] Historycolonoscopy02/2013Surgical HistoryFoot SurgerySurgical HistoryTKA12/2014Surgical Historytoenails removed02/22/2014Surgical Historycardiac catheterization02/2013Surgical HistoryTKA rt08/17/2017Surgical HistoryTENDINITIS IN LEFT FOOTSurgical HistoryUPPER GI05/2019Hospitalization HistoryappendectomyHospitalization HistorytonsillectomyHospitalization History [facility] Kidney problems03/2019Hospitalization HistorysEE ABOVEHospitalization HistorypneumoniaHospitalization HistoryLeg cramps [facility] dehydration06/2021 Merged [facility] Where Other History general Narrative - ReportedNortRegional Hospital of Sc[facility]on Where Other History general Narrative - Reported* Type [...] HistoryOSAMedical HistoryEsophageal refluxSurgical History appendectomySurgical HistorytonsillectomySurgical Historygastric [id number] Surgical HistoryCaesarean sectionSurgical Historyleft knee arthroplastySurgical HistoryEVLT Right [id number] Historycolonoscopy02/2013Surgical HistoryFoot SurgerySurgical HistoryTKA12/2014Surgical Historytoenails removed02/22/2014Surgical Historycardiac catheterization02/2013Surgical HistoryTKA rt08/17/2017Surgical HistoryTENDINITIS IN LEFT FOOTSurgical HistoryUPPER GI05/2019Surgical HistoryLt. TKA SQZGHLUS15/15/2022Hospitalization HistoryappendectomyHospitalization History tonsillectomyHospitalization History[facility] [place]ney problems03/2019Hospitalization HistorysEE ABOVEHospitalization HistorypneumoniaHospitalization HistoryLeg cramps [facility] dehydration06/2021 [employer] Other History general Narrative - Reported* Type [...] cholesterolMedical HistoryPVDMedical HistoryadoptedSurgical HistoryappendectomySurgical History tonsillectomySurgical Historygastric [id number] HistoryCaesarean section Surgical Historyleft right knee arthroplastySurgical HistoryEVLT Right [id number] Surgical Historycolonoscopy02/2013Surgical HistoryFoot SurgerySurgical HistoryTKA 12/2014Surgical Historytoenails removed02/22/2014Surgical Historycardiac catheterization02/2013Surgical HistoryTKA rt08/17/2017Surgical HistoryTENDINITIS IN LEFT FOOTSurgical HistoryUPPER GI05/2019Surgical HistoryLt. TKA REVISION 10/02/2022urgical Historybiopsy-thyroidSurgical HistorycolonoscopySurgical Historyheart catheterizationSurgical Historybariatric surgeryHospitalization HistoryappendectomyHospitalization HistorytonsillectomyHospitalization History [facility] Kidney problems03/2019Hospitalization HistorysEE ABOVEHospitalization HistorypneumoniaHospitalization HistoryLeg cramps [facility] dehydration06/2021 [employer] Other History general Narrative - Reported* Type [...] cholesterolMedical HistoryPVDMedical HistoryadoptedSurgical HistoryappendectomySurgical History tonsillectomySurgical Historygastric [id number] HistoryCaesarean section Surgical Historyleft right knee arthroplastySurgical HistoryEVLT Right [id number] Surgical Historycolonoscopy02/2013Surgical HistoryFoot SurgerySurgical HistoryTKA 12/2014Surgical Historytoenails removed02/22/2014Surgical Historycardiac catheterization02/2013Surgical HistoryTKA rt08/17/2017Surgical HistoryTENDINITIS IN LEFT FOOTSurgical HistoryUPPER GI05/2019Surgical HistoryLt. TKA REVISION 2Surgical Historybiopsy-thyroidSurgical HistorycolonoscopySurgical Historyheart catheterizationSurgical Historybariatric surgerySurgical Historylt total knee pyriirdq89/2022Surgical Historylt knee infection revision of knee cap 03/2023Hospitalization HistoryappendectomyHospitalization Historytonsillectomy Hospitalization HistoryFR Kidney problems03/2019Hospitalization HistorysEE ABOVEHospitalization HistorypneumoniaHospitalization HistoryLeg cramps [facility] dehydration06/2021 [employer] Other History of Present illness Narrative* Patient [...] implantable device. She will discuss with her director of child welfare services Dr. Encarnacion * 5. I reviewed her recent lab work * 6. We will see her back in 1 year in follow-up [facility] 250 DO Work Phone: Hospital Discharge instructions* Attachments The following attachments cannot be sent through Care Everywhere. * Fall Prevention (Citizen Of [place]) * DVT (Deep Vein Thrombosis): Prevention: General Info (Citizen Of [place]) * Pain Medication Precautions (Citizen Of [place]) * Constipation (Citizen Of [place]) * Incentive Spirometer: General Info (Citizen Of [place]) * Antibiotics: General Info (Citizen Of [place]) documented in this encounterity HealthInstructions* Date Instruction Additional Infor mation No Information [facility] [place] Work Phone: Progress note* Clinical Note Date No Information [facility] Work Phone: Reason for referral (narrative)* Reason For Referral No Information [facility] [place] Work Phone: Reason for referral (narrative)No reason for referral [facility]: Reason for visit Narrative* Auth/CertSpecialty Diagnoses / ProceduresReferred By ContactReferred To Contact Diagnoses Mechanical loosening of internal left knee prosthetic joint, subsequent encounter T84.033D Procedures TN REVISION TOTAL KNEE ARTHROPLASTY WITH OR WITHOUT ALLOGRAFT 1 COMPONENT TN REVISION TOTAL KNEE ARTHROPLASTY WITH OR WITHOUT ALLOGRAFT 1 COMPONENT Left knee revision arthroplasty poly exchange Anusha Barber MD [address] [place] [address] [facility] [employer] [address] [place] [address] Referral IDStatusReasonSttollhouse DateExpiration DateVisits RequestedVisits [id number] [facility] for visit Narrative* Auth/CertSpecialtyDiagnoses / ProceduresReferred By ContactReferred To Contact Diagnoses Infection and inflammatory reaction due to other internal joint prosthesis, initial encounter ([facility]) T84.59XA Procedures TN INCISION & DRAINAGE ABSCESS/BURSA/HEMATOMA DEEP SOFT TISSUE THIGH/KNEE Left knee I & D Anusha Barber MD [address] [place] [address] [facility] [employer] [address] [place] [address] Referral IDStatusReasonStart DateExpiration DateVisits RequestedVisits [id number] [facility] for visit Narrative* Auth/Cert (Routine)SpecialtyDiagnoses / ProceduresReferred By ContactReferred To Contact Diagnoses Left hip pain Left hip pain [M25.552] Procedures TN ARTHROCENTESIS ASPIR&/INJ MAJOR JT/BURSA W/O US INJECTION MEDICATION-HIP INTRA-ARTICULAR INJECTION Estrella Angelo MD [facility] [place] [address] [place] [address] Phone: tel: fax: [facility] [address] [place] [address] Referral IDStatusReasonStart DateExpiration DateVisits RequestedVisits [id number] Mars Carrion [facility] Summary Purpose Family History Unknown Family Member [...] 1:51pm Code StatusDate ActivatedDate InactivatedCommentsFull Code - [id number]/02/2022 2:16 PM10/06/2022 7:03 PMThis is order is [...] arrest.Code Status Date ActivatedDate InactivatedCommentsFull Code - Cughrmi7210/02/2022 2:16 PM 10/06/2022 7:03 PMThis is order [...] deficiency July 12 1:40pm Chief Complaint RENUKA PARDON is being seen for an annual follow-up of. Additional Source Comments INFORMATION SOURCE (unrecogn ized section and content) DATE CREATED AUTHOR 06/14/2018 [facility] DATE CREATED AUTHOR AUTHOR'S ORGANIZ ATION 07/09/2018 [facility] DATE CREATED AUTHOR AUTHOR'S ORGANIZ ATION 09/05/2018 [facility] DATE CREATED AUTHOR AUTHOR'S ORGANIZ ATION 12/29/2020 [facility] DATE CREATED AUTHOR AUTHOR'S ORGANIZ ATION 09/26/2022 [facility] DATE CREATED AUTHOR AUTHOR'S ORGANIZ ATION 09/26/2022 [employer] DATE CREATED AUTHOR AUTHOR'S ORGANIZ ATION 03/30/2023 [facility] DATE CREATED AUTHOR AUTHOR'S ORGANIZ ATION 06/05/2024 [facility] DATE CREATED AUTHOR AUTHOR'S ORGANIZ ATION 06/07/2024 [facility] DATE CREATED AUTHOR AUTHOR'S ORGANIZ ATION 06/09/2024 [facility] DATE CREATED AUTHOR AUTHOR'S ORGANIZ ATION 06/11/2024 [facility] DATE CREATED AUTHOR AUTHOR'S ORGANIZ ATION 07/22/2024 [facility] DATE CREATED AUTHOR AUTHOR'S ORGANIZ ATION 01/27/2025 [facility] DATE CREATED AUTHOR AUTHOR'S ORGANIZ ATION 03/17/2025 [facility] DATE CREATED AUTHOR AUTHOR'S ORGANIZ ATION 04/15/2025 [facility] DATE CREATED AUTHOR AUTHOR'S ORGANIZ ATION 05/02/2025 [facility] DATE CREATED AUTHOR AUTHOR'S ORGANIZ ATION 07/23/2025 [facility] REASON FOR VISIT (unrecogniz ed section and content) ReasonCommentsSwollen GlandsReasonCommentsThyroid NoduleFollow up ultrasound [facility] 01/24/25Ear ProblemAudio 03/14/2537GnwwklMwfygkgcCfrd84 y.o. female 2007 L TKAand 2021 L TKRevsion (Dr. Barber in [place]). Had a cat scratch infection in 2022 [...] and grafts, initial encounter Vlad Wade MD [address] [place] [address] Phone: tel: Vlad Joel MD [address] [place] [address] Phone: tel: fax: Referral IDStatusReasonStart DateExpiration DateVisits RequestedVisits [id number] Care Teams (unrecognized sec tion and content) [...] Primary Care Provider Active Deidra Lee , MANAGER MANUFACTURING-BCEmergency ProviderActive Team Status: Inactive Member Role Status Dates Elda Sibley DO Primary Care Provider Active Peter Sosa DOAttending ProviderActive Team Status: Active Member Role Status Dates Colt Ndiaye MD ActiveElda Sibley DOPrimary Care ProviderActiveMary Karla Epps , APRNAttending Provider, Other ProviderActiveTeam MemberRelationshipSpecialty Start DateEnd Date Peter Sosa DO [address] [place] [address] PCP - GeneralFamily Pzsychfb34/5/22Team MemberRelationshipSpecialtyStart DateEnd Date Peter Sosa DO [address] [place] [address] PCP - [facility] Apufoauc44/5/22 Name Effective Dates (start - stop) Status Members No Information Team Status: Inactive Member Role Status Dates Peter Sosa DO Primary Care Provider Active Start: October 27, 2024 End: October 27Jose Valle ProviderActiveStart: October 27, 2024 End: October 27, 2024Team MemberRelationshipSpecialtyStart DateEnd Date Unallocated, Souravs MD Antonio [address] [place] [address] PCP - [facility] Medicine12/18/23Team MemberRelationshipSpecialtyStart DateEnd Date Unallocated, Deb Alvarez MD [address] [place], [place] [address] [address] PCP - [facility]12/18/23Team MemberRelationshipSpecialtyStart DateEnd Date Unallocated, Deb Alvarez MD [address] [place] [address] PCP - [facility] Medicine12/18/23Team MemberRelationshipSpecialtyStart DateEnd Date Unallocated, Deb Alvarez MD [address] [place] [address] PCP - [facility]12/18/23Team MemberRelationshipSpecialtyStart DateEnd Date Unallocated, Deb Alvarez MD [facility] [place] [address] PCP - [facility]12/18/23Team MemberRelationshipSpecialtyStart DateEnd Date Peter Sosa MD [address] [place] [address] PCP - GeneralFamily Medicine03/17/25Team MemberRelationshipSpecialtyStart DateEnd Date Peter Sosa MD [address] [place] [address] PCP - GeneralFamily Medicine03/17/25 Team Status: Inactive Member Role Status Dates Peter Sosa DO Attending Provider Active Start: April 11, 2025 End: April 11, 2025Team MemberRelationshipSpecialtyStart DateEnd Date Peter Sosa DO [address] [place] [address] PCP - GeneralFamily Medicine04/28/25Team MemberRelationshipSpecialtyStart DateEnd Date Peter Sosa DO [address] [place] [address] PCP - Generalmily Medicine04/28/25Team MemberRelationshipSpecialtyStart DateEnd Date Unallocated, Deb Alvarez MD [address] [place] [address] PCP - GeneralFamily Medicine Peter Sosa MD [address] [place] [address] PCP - Generalmily Medicine03/17/25Team MemberRelationshipSpecialtyStart DateEnd Date Unallocated, Deb Alvarez MD [address] [place] [address] PCP - GeneralFamily Medicine Peter Sosa MD [address] [place] [address] PCP - GeneralFamily Medicine03/17/25 Goals (unrecognized section [...] Care 2)Qmon CBC,SR,Creat,CRP, fax to Dr. Angelo [phone] 3)IV ATB for 42 days 4)Call Dr. [...] at 2100, Recovery & On Unit * 2270 (Given - Provider: Gloria Mohan RN) * [...] * 0727 (Given - Provider: Opal Carter, NOTCHED BLADE LOADER) * 2027 (Given - Provider: Berenice Carcamo, [...] MARIBELL) * 0928 (Given - Provider: Brandy uMllen RN) pantoprazole (PROTONIX) EC tablet 40 mg [...] SBP >150 or DBP >100, Starting on [facility] 10/04/22 at 1128 cyclobenzaprine (FLEXERIL) [...] Every 6 hours PRN, itching, Starting on [place] 10/05/22 at 1545 * 1601 (Given - [...] * 2145 (Given - Provider: Nory Khan, NOTCHED BLADE LOADER) * 0806 (Given - Provider: Nicole Ku) [...] > 180 or DBP > 100, Starting [facility] 03/19/23 at 1631 diphenhydrAMINE (BENADRYL) capsule 25 [...] provider - Provider: Danika Prince, DIANE - TAG MACHINE OPERATOR - Reason: Other) * 1345 (Automatically Held) [...] BE BASED ON THE PRIMARY CLINICAL RECORDS. [facility] [employer] [facility]. provides no warranty or guarantee of the accuracy or completeness of information in this document.
[2025-09-19 20:42] LABS: Hematocrit 40.1 % (36.0-48.0); Hemoglobin 12.7 g/dL (12.0-16.0); Immature Granulocytes Abs Auto 0.03 10^3/uL (0.00-0.03); Immature Granulocytes Pct Auto 0.4 % (0.0-0.5); Lymphocytes Absolute Auto 1.6 10^3/uL (1.2-3.8); Mean Corpuscular HGB Conc 31.7 g/dL (29.9-35.2); Mean Corpuscular Hemoglobin 28.2 pg (26.7-34.0); Mean Corpuscular Volume 89.1 fL (81.0-99.0); Platelet Count 284 10^3/uL (150-450); Red Blood Count 4.50 10^6/uL (4.20-5.40); White Blood Count 8.6 10^3/uL (4.0-11.0)
[2025-09-19] MEDS: ORPHENADRINE 60 MG/2 ML VIAL IV (20:51)
[2025-09-19 21:02] LABS: Lactate/Lactic Acid 1.0 mmol/L (0.4-2.0)
[2025-09-19 21:03] LABS: Alanine Aminotransferase 19 U/L (14-59); Albumin Globulin Ratio 0.9; Albumin Level 3.7 g/dL (3.4-5.0); Alkaline Phosphatase 87 U/L (46-116); Anion Gap 10.9; Aspartate Amino Transferase 17 U/L (15-37); Blood Urea Nitrogen 41.0 mg/dL (7.0-18.0); Calcium 9.2 mg/dL (8.5-10.1); Carbon Dioxide 27.7 mmol/L (21.0-32.0); Chloride 106 mmol/L (98-107); Estimated GFR (African America 38 (>=60 mL/min/1.73m^2); Estimated GFR (Non-African Ame 31 (>=60 mL/min/1.73m^2); Globulin 3.9 g/dL; Glucose 111 mg/dL (74-106); Potassium 3.6 mmol/L (3.5-5.1); Sodium 141 mmol/L (136-145); Total Protein 7.6 g/dL (6.4-8.2)
--- NOTE | 2025-09-19 22:09 | PC.NURSE ---
patient updated still waiting on 3 ct results and patient still unable to provide a urine sample at this time
[2025-09-19 22:42] LABS: Glucose Urine UA 250 mg/dL (NEGATIVE)
[2025-09-19 22:48] LABS: Cast Seen? NONE SEEN #/LPF (NONE SEEN); Crystals Seen? None Seen #/HPF (None Seen); Urine Culture Indicated YES-FRMC
--- NOTE | 2025-09-19 23:06 | PC.NURSE ---
i gave this patient verbal and written discharge orders and this patient voices yes to understanding these. at time of discharge this patient vices no concerns, needs and shows no signs of distress
== END 2025-09-19 23:05 | disposition home or self-care (01) ==
PROVIDERS: Emergency Provider Internal Medicine; PCP Family Medicine
DX: S09.8XXA Other specified injuries of head, initial encounter (principal); S16.1XXA Strain of muscle, fascia and tendon at neck level, initial encounter; S20.211A Contusion of right front wall of thorax, initial encounter; S30.11XA Contusion of abdominal wall, initial encounter; W17.89XA Other fall from one level to another, initial encounter; Y92.008 Other place in unspecified non-institutional (private) residence as the place of occurrence of the external cause; R82.998 Other abnormal findings in urine
CPT/HCPCS: 36415; 70450; 71260; 72125; 73552; 74177; 76376; 80053; 81001; 83605; 84484; 85025; 87086; 87088; 87186; 96374; 99285; J2360; Q9967